=== PATIENT | female | born 1995 | race Caucasian/White ===

== ENCOUNTER 2022-11-01 11:20 | Outpatient (OUT) | payer OTHER, SELFPAY ==
[2022-11-01 12:41] LABS: Thyroid Stimulating Hormone 1.486 uIU/mL (0.358-3.740)
== END 2022-11-01 11:21 ==
LOC: LAB 11:25
PROVIDERS: PCP Internal Medicine; Visit Provider Physician Assistant
DX: Z39.2 Encounter for routine postpartum follow-up (principal)
CPT/HCPCS: 36415; 84443

== ENCOUNTER 2022-11-08 08:03 | Emergency (ER) | payer OTHER, SELFPAY ==
[2022-11-08 08:09] VITALS: BP 143/79; PULSE 80; RESP 18; TEMP 36.9; O2SAT 99; BMI 30.1
--- NOTE | 2022-11-08 08:40 | ED_ITS ---
HPI - General Adult General Chief complaint: Vaginal Bleeding Stated complaint: POST COMPLICATIONS CHILD Time Seen by Provider: 11/08/22 08:40 Source: patient Source information: patient Mode of arrival: walk-in Limitations: no limitations History of Present Illness HPI narrative: Patient presents to emergency department complaining of vaginal bleeding. Patient states she delivered prematurely at 29 weeks on September 22. She states since then she has been bleeding. She saw Dr. Valenzuela and was started on a control pill which has been changed but she has not started until she is done with her current control pills patient states she continues to bleed and is now passing clots golf ice. She denies any dizziness, lightheadedness, palpitations. She denies any foul vaginal discharge. She denies any flank pain, hematuria, dysuria. She denies a trauma. She denies any abdominal pain. She denies any fever, chills, cough, chest pain, shortness of breath. The patient is not soaking through 1 pad per hour. Related Data Allergies Allergy/AdvReac Type Severity Reaction Status Date / Time azithromycin Allergy Mild Uncoded 11/08/22 08:14 lamictil Allergy Mild Uncoded 11/08/22 08:14 Review of Systems ROS Status of ROS 10 or more systems reviewed and unremarkable except as noted in history and below [facility] Social History Smoking status: Never smoker Exam Narrative Exam Narrative: Nurses notes and vital signs reviewed and patient is not hypoxic. General: Nontoxic, Well-appearing and in no apparent distress. Skin: Warm, dry, no pallor noted. No Rash Head: Normocephalic, atraumatic. Neck: Supple, non-tender. Eye: Pupils are equal, round and EOMI. No scleral icterus. Ears, Nose, Mouth, and Throat: TM clear, no posterior oropharynx erythema or nasal mucosal hypertrophy, uvula is mid-line Oral mucosa is moist Cardiovascular: Regular Rate and Rhythm without murmur, gallop or rub. Respiratory: No accessory muscle use or respiratory distress. Lungs are clear to auscultation, no wheezing, rales or rhonchi Chest Wall: no tenderness Back: No midline thoracic or lumbar vertebral tenderness. No CVA tenderness Musculoskeletal: normal ROM, no calf or popliteal tenderness, no lower extremity edema/swelling GI: Abdomen is soft, non-distended. Normal bowel sounds. No masses appreciated. No tenderness to palpation. No rebound, guarding, or rigidity noted. Neurological: A&O x4. No cranial nerve dysfunction observed. No truncal ataxia. Moves all extremities. Sensation intact. Psychiatric: Cooperative and interactive. Normal mood and affect. Constitutional Vital Signs - 24 hr 11/08/22 08:09 11/08/22 10:58 Temperature 98.5 F Pulse Rate 77 Pulse Rate [Monitor] 80 Respiratory Rate 18 16 Blood Pressure 110/75 Blood Pressure [Right Arm] 143/79 H Pulse Oximetry 99 100 Oxygen Delivery Method Room Air Course Vital Signs Vital signs: Vital Signs Temperature 98.5 F 11/08/22 08:09 Pulse Rate 80 11/08/22 08:09 Respiratory Rate 18 11/08/22 08:09 Blood Pressure 143/79 H 11/08/22 08:09 Pulse Oximetry 99 11/08/22 08:09 Oxygen Delivery Method Room Air 11/08/22 08:09 Temperature 98.5 F 11/08/22 08:09 Pulse Rate 77 11/08/22 10:58 Respiratory Rate 16 11/08/22 10:58 Blood Pressure 110/75 11/08/22 10:58 Pulse Oximetry 100 11/08/22 10:58 Oxygen Delivery Method Room Air 11/08/22 08:09 Medical Decision Making MDM Narrative Medical decision making narrative: Studies were done and are unremarkable. Patient's hemoglobin is 13. A pelvic ultrasound was done which is also unremarkable. This results were discussed with patient and the mother. The patient was discussed with Dr. Valenzuela's nurse practitioner in uremia advised the patient follow up with him as an outpatient. I'll today and schedule an appointment. At this time the patient is without objective evidence of an acute process requiring hospitalization or inpatient management. The patient has remained hemodynamically stable. No additional indication for emergent studies at this time. I answered all questions. Discussed discharge instructions including standard anticipatory guidance and what should prompt a return to the emergency department, including if they get worse are not getting better or develops any new or concerning symptoms. I've given them specific time frame in which to follow-up, and who to follow-up with. The patient demonstrates understanding. Patient is nontoxic and stable for discharge with outpatient follow-up. This note was created with the assistance of a speech recognition program. Although the intention is to generate documents that actually reflects the content of the visit, no guarantees can be provided that every mistake has been identified and corrected by editing. Lab Data Lab results reviewed: Yes I reviewed the patient's lab results Labs: Lab Results 11/08/22 11/08/22 Range/Units 09:05 10:10 WBC 5.5 (4.0-11.0) 10^3/uL RBC 4.70 (4.20-5.40) 10^6/uL Hgb 13.9 (12.0-16.0) g/dL Hct 41.8 (36.0-48.0) % MCV 88.9 (81.0-99.0) fL MCH 29.6 (26.7-34.0) pg MCHC 33.3 (29.9-35.2) g/dL RDW 12.5 (11.0-15.0) % Plt Count 302 (150-450) 10^3/uL MPV 10.3 (9.5-13.5) fL Neut % (Auto) 55.5 (43.0-75.0) % Lymph % (Auto) 36.5 (20.5-60.0) % [place] % (Auto) 6.0 (1.7-12.0) % Eos % (Auto) 0.9 (0.9-7.0) % Baso % (Auto) 0.9 (0.2-2.0) % Neut # (Auto) 3.1 (1.4-6.5) 10^3/uL Lymph # (Auto) 2.0 (1.2-3.8) 10^3/uL [place] # (Auto) 0.3 (0.3-0.8) 10^3/uL Eos # (Auto) 0.1 (0.0-0.7) 10^3/uL Baso # (Auto) 0.1 (0.0-0.1) 10^3/uL Abs Immat Gran (auto) 0.01 (0.00-0.03) 10^3/uL Imm/Tot Granulo (auto) 0.2 (0.0-0.5) % Sodium 139 (136-145) mmol/L Potassium 4.1 (3.5-5.1) mmol/L Chloride 105 (98-107) mmol/L Carbon Dioxide 26.3 (21.0-32.0) mmol/L Anion Gap 11.8 BUN 13.0 (7.0-18.0) mg/dL Creatinine 0.87 (0.55-1.02) mg/dL Est GFR ( Amer) >60 (>=60) Est GFR (Non-Af Amer) >60 (>=60) BUN/Creatinine Ratio 14.9 Glucose 105 (74-106) mg/dL Calcium 9.2 (8.5-10.1) mg/dL Total Bilirubin 0.3 (0.2-1.0) mg/dL AST 13 L (15-37) U/L ALT 18 (14-59) U/L Alkaline Phosphatase 82 (46-116) U/L Total Protein 7.8 (6.4-8.2) g/dL Albumin 4.0 (3.4-5.0) g/dL Globulin 3.8 g/dL Albumin/Globulin Ratio 1.1 Urine Color Lt. yellow (YELLOW) Urine Clarity Clear (CLEAR) Urine pH 7.0 (5.0-9.0) Ur Specific [place] 1.010 (1.005-1.025) Urine Protein Negative (NEG/TRACE) mg/dL Urine Glucose (UA) Negative (NEGATIVE) mg/dL Urine Ketones Negative (NEGATIVE) mg/dL Urine Occult Blood Large A (NEGATIVE) Urine Nitrite Negative (NEGATIVE) Urine Bilirubin Negative (NEGATIVE) Urine Urobilinogen 0.2 (0.2-1.0) EU/dL Ur Leukocyte Esterase Negative (NEGATIVE) Urine HCG, Qual Negative (NEGATIVE) Discharge Plan Discharge Chief Complaint: Vaginal Bleeding Clinical Impression: Menometrorrhagia Patient Disposition: Home, Self-Care Time of Disposition Decision: 11:28 Condition: Good Mode of Transportation: Private Vehicle Instructions: Menorrhagia (ED) Stand Alone Forms: Portal Instructions Referrals: MATTHEW LEMUS [Primary Care Provider] - 1 week
--- NOTE | 2022-11-08 09:08 | US_ITS ---
[address] [address] Patient Name: LULÚ CAICEDO MRN: [id number] date: 1995 Sex: F Assigned Patient Location: ED.MAIN Current Patient Location: ER Accession/Order Number: [id number] Exam Date: 11/08/2022 09:20 Report Date: 11/08/2022 10:35 At the request of: ERNESTINE BAUGH Procedure: US pelvis EXAMINATION: US pelvis HISTORY: vag bleeding, retained products COMPARISON: No relevant comparison available. TECHNIQUE: Transabdominal and/or transvaginal sonographic examination was performed as indicated by examination type. FINDINGS: UTERUS: Normal size and appearance. Uterus size: 8.2 x 4.6 x 6.6 cm ENDOMETRIUM: No foci of increased echogenicity, fluid collections, or mass. Endometrial thickness: 10 mm RIGHT OVARY: Normal size and appearance. Duplex Doppler demonstrates normal waveform and flow; resistive index 0.7. Ovary size: 2.1 x 1.6 x 1.5 cm LEFT OVARY: Contains a 2.4 cm complex cyst/dominant follicle. Duplex Doppler demonstrates normal waveform and flow; resistive index 0.6. Ovary size: 4.9 x 3.0 x 3.4 cm CUL-DE-SAC: Unremarkable. No significant free fluid. BLADDER: Unremarkable. OTHER: None. IMPRESSION: 1. No evidence of retained products of conception. Electronically authenticated by: KAROL SIDDIQUI Date: 11/08/2022 10:35
[2022-11-08] MEDS: 0.9 % SODIUM CHLORIDE 1,000 ML 999 ML IV (09:16)
[2022-11-08 09:20] LABS: Basophils Absolute Auto 0.1 10^3/uL (0.0-0.1); Basophils Percent Auto 0.9 % (0.2-2.0); Eosinophils Absolute Auto 0.1 10^3/uL (0.0-0.7); Eosinophils Percent Auto 0.9 % (0.9-7.0); Hematocrit 41.8 % (36.0-48.0); Hemoglobin 13.9 g/dL (12.0-16.0); Immature Granulocytes Abs Auto 0.01 10^3/uL (0.00-0.03); Immature Granulocytes Pct Auto 0.2 % (0.0-0.5); Lymphocytes Percent Auto 36.5 % (20.5-60.0); Mean Corpuscular HGB Conc 33.3 g/dL (29.9-35.2); Mean Corpuscular Hemoglobin 29.6 pg (26.7-34.0); Mean Corpuscular Volume 88.9 fL (81.0-99.0); Mean Platelet Volume 10.3 fL (9.5-13.5); Monocytes Absolute Auto 0.3 10^3/uL (0.3-0.8); Neutrophils Absolute Auto 3.1 10^3/uL (1.4-6.5); Neutrophils Percent Auto 55.5 % (43.0-75.0); Platelet Count 302 10^3/uL (150-450); Red Cell Distribution Width 12.5 % (11.0-15.0); White Blood Count 5.5 10^3/uL (4.0-11.0)
[2022-11-08 09:50] LABS: Alanine Aminotransferase 18 U/L (14-59); Albumin Globulin Ratio 1.1; Alkaline Phosphatase 82 U/L (46-116); Anion Gap 11.8; Aspartate Amino Transferase 13 U/L (15-37); BUN Creatinine Ratio 14.9; Bilirubin Total 0.3 mg/dL (0.2-1.0); Calcium 9.2 mg/dL (8.5-10.1); Carbon Dioxide 26.3 mmol/L (21.0-32.0); Chloride 105 mmol/L (98-107); Estimated GFR (African America >60 (>=60); Estimated GFR (Non-African Ame >60 (>=60); Globulin 3.8 g/dL; Glucose 105 mg/dL (74-106); Potassium 4.1 mmol/L (3.5-5.1); Sodium 139 mmol/L (136-145); Total Protein 7.8 g/dL (6.4-8.2)
[2022-11-08 10:37] LABS: Bilirubin Urine NEGATIVE (NEGATIVE); Blood Urine LARGE (NEGATIVE); Clarity Urine CLEAR (CLEAR); Color Urine LT. YELLOW (YELLOW); Glucose Urine UA NEGATIVE (NEGATIVE); Ketones Urine NEGATIVE (NEGATIVE); Leukocyte Esterase Urine NEGATIVE (NEGATIVE); Nitrite Urine NEGATIVE (NEGATIVE); Protein Urine NEGATIVE (NEG/TRACE); Urobilinogen Urine 0.2 EU/dL (0.2-1.0)
[2022-11-08 10:38] LABS: HCG Qualitative Urine* NEGATIVE (NEGATIVE)
[2022-11-08 10:58] VITALS: BP 110/75; PULSE 77; RESP 16; O2SAT 100
[2022-11-08 11:43] VITALS: BP 115/75; PULSE 68; RESP 16; O2SAT 99
== END 2022-11-08 11:45 | disposition home or self-care (01) ==
PROVIDERS: Emergency Provider Emergency Medicine; PCP Internal Medicine
DX: N92.1 Excessive and frequent menstruation with irregular cycle (principal)
CPT/HCPCS: 36415; 76856; 80053; 81003; 83605; 84703; 85025; 99284

== ENCOUNTER 2023-01-21 07:35 | Outpatient (OUT) | payer OTHER, SELFPAY ==
--- NOTE | 2023-01-21 07:35 | NM_ITS ---
The [address] [address] Patient Name: LULÚ CAICEDO MRN: [id number] date: 1995 Sex: F Assigned Patient Location: UT Current Patient Location: UT Accession/Order Number: [id number] Exam Date: 01/21/2023 07:35 Report Date: 01/21/2023 12:56 At the request of: MATTHEW LEMUS Procedure: UT gastric emptying study NUCLEAR MEDICINE GASTRIC EMPTYING SCAN HISTORY: Vomiting after meals. COMPARISON: None. TECHNIQUE: The patient ingested a meal of eggs labeled with 1.0 mCi of technetium-99 sulfur colloid and images were performed of the stomach over 4 hours. Gastric retention was calculated. FINDINGS: At one hour, there was 88% gastric retention. The normal range is 30% to 90%. At two hours, there was 83% gastric retention. The normal range 0% to 60%. At four hours, there was 10% gastric retention. The normal range 0% to 10%. UT/UT gastric emptying study IMPRESSION: Delayed gastric emptying. Electronically authenticated by: NADYA MUNGUIA Date: 01/21/2023 12:56
== END 2023-01-21 07:36 | disposition home or self-care (01) ==
LOC: NM 07:37
PROVIDERS: PCP Internal Medicine; Visit Provider Internal Medicine
DX: K30 Functional dyspepsia (principal)
CPT/HCPCS: 78264; A9541

== ENCOUNTER 2023-02-23 09:15 | Outpatient (OUT) | payer OTHER, SELFPAY ==
[2023-02-23 09:46] LABS: Basophils Absolute Auto 0.1 10^3/uL (0.0-0.1); Basophils Percent Auto 0.8 % (0.2-2.0); Eosinophils Absolute Auto 0.1 10^3/uL (0.0-0.7); Eosinophils Percent Auto 0.6 % (0.9-7.0); Hematocrit 40.6 % (36.0-48.0); Hemoglobin 13.6 g/dL (12.0-16.0); Immature Granulocytes Abs Auto 0.03 10^3/uL (0.00-0.03); Immature Granulocytes Pct Auto 0.4 % (0.0-0.5); Lymphocytes Absolute Auto 2.8 10^3/uL (1.2-3.8); Lymphocytes Percent Auto 35.3 % (20.5-60.0); Mean Corpuscular HGB Conc 33.5 g/dL (29.9-35.2); Mean Corpuscular Volume 89.6 fL (81.0-99.0); Mean Platelet Volume 10.1 fL (9.5-13.5); Monocytes Absolute Auto 0.5 10^3/uL (0.3-0.8); Monocytes Percent Auto 6.8 % (1.7-12.0); Neutrophils Absolute Auto 4.4 10^3/uL (1.4-6.5); Neutrophils Percent Auto 56.1 % (43.0-75.0); Platelet Count 364 10^3/uL (150-450); Red Blood Count 4.53 10^6/uL (4.20-5.40); Red Cell Distribution Width 12.2 % (11.0-15.0); White Blood Count 7.8 10^3/uL (4.0-11.0)
[2023-02-23 14:10] LABS: Estimated Average Glucose 103 mg/dL; Glycohemoglobin A1C 5.2 % (4.5-6.2)
[2023-02-23 15:31] LABS: HCG Quantitative <1 mIU/mL; Thyroid Stimulating Hormone 2.008 uIU/mL (0.358-3.740)
[2023-02-23 16:49] LABS: Free T4 1.11 ng/dL (0.76-1.46)
[2023-02-24 04:07] LABS: FSH 2.7 mIU/mL (.); Luteinizing Hormone(LH) 1.1 mIU/mL (.)
[2023-03-01 13:10] LABS: DHEA, Serum 216 ng/dL (31-701)
== END 2023-02-23 09:16 | disposition home or self-care (01) ==
LOC: LAB 09:16
PROVIDERS: PCP Internal Medicine; Visit Provider Obstetrics & Gynecology
DX: Z30.09 Encounter for other general counseling and advice on contraception (principal)
CPT/HCPCS: 36415; 82626; 82627; 83001; 83002; 83036; 84439; 84443; 84702; 85025

== ENCOUNTER 2023-02-26 19:15 | Emergency (ER) | payer OTHER, SELFPAY ==
[2023-02-26 19:17] VITALS: BP 118/70; PULSE 80; RESP 14; TEMP 36.7; O2SAT 98; BMI 27.0
--- NOTE | 2023-02-26 19:27 | ED.ABDPAIN1 ---
HPI - Abdominal Pain General Chief Complaint: Abdominal Pain Stated Complaint: Abdominal Pain Time Seen by Provider: 02/26/23 19:18 History of Present Illness HPI narrative: 27-year-old female presents for abdominal issue. She is not complaining of pain and she hasn't had fever or trauma. She has a discomfort and feels bloated. She's not overdue for her period. She's been having three bowel movements a day but no diarrhea and has not been constipated or vomiting but she's been a bit nauseous. No fever or chest pain. Related Data Allergies Allergy/AdvReac Type Severity Reaction Status Date / Time lurasidone [From Latuda] Allergy Verified 02/26/23 19:19 azithromycin Allergy Mild Uncoded 02/26/23 19:19 lamictil Allergy Mild Uncoded 02/26/23 19:19 Review of Systems ROS Narrative A ten point review of systems is negative except as noted above. PFSH PFSH Social History Smoking status: Never smoker Exam Narrative Exam Narrative: Nurses note and vital signs reviewed and patient is not hypoxic. General: The patient appears well and in no apparent distress. Patient is resting comfortably on cart. Skin: Warm, dry, no pallor noted. There is no rash noted. Head: Normocephalic, atraumatic Eye: Normal conjunctiva, no drainage Ears, Nose, Mouth, and Throat: oral mucosa is moist. Nares patent. Cardiovascular: Regular Rate and Rhythm Respiratory: Patient is in no distress, no accessory muscle use, lungs are clear to auscultation, no wheezing, rales or rhonchi Back: non-tender GI: Normal bowel sounds, no tenderness to palpation, no masses appreciated. No rebound, guarding, or rigidity noted. Musculoskeletal: The patient has no evidence of calf tenderness, no pitting edema, symmetrical pulses noted bilaterally Neurological: A&O, normal speech Psychiatric: Cooperative Constitutional Vital Signs, click to edit/add: Last Vital Signs Temp 98.3 F 02/26/23 20:44 Pulse 77 02/26/23 20:44 Resp 16 02/26/23 20:44 BP 100/54 02/26/23 20:44 Pulse Ox 100 02/26/23 20:44 O2 Del Method Room Air 02/26/23 20:44 Course Vital Signs Vital signs: Vital Signs Temperature 98.1 F 02/26/23 19:17 Pulse Rate 80 02/26/23 19:17 Respiratory Rate 14 02/26/23 19:17 Blood Pressure 118/70 02/26/23 19:17 Pulse Oximetry 98 02/26/23 19:17 Temperature 98.3 F 02/26/23 20:44 Pulse Rate 77 02/26/23 20:44 Respiratory Rate 16 02/26/23 20:44 Blood Pressure 100/54 02/26/23 20:44 Pulse Oximetry 100 02/26/23 20:44 Oxygen Delivery Method Room Air 02/26/23 20:44 MDM - Abdominal Pain MDM Narrative Medical decision making narrative: the patient's workup is negative except for constipation and she is discharged home and was recommended MiraLAX. Treatment diagnosis and follow-up were discussed with the patient. Differential Diagnosis Differential diagnosis: Likely abdominal pain, constipation, diverticulitis, endometriosis, gastroenteritis, pancreatitis and small bowel obstruction Lab Data Labs: Lab Results 02/26/23 02/26/23 Range/Units 19:20 19:25 WBC 10.0 (4.0-11.0) 10^3/uL RBC 4.42 (4.20-5.40) 10^6/uL Hgb 13.3 (12.0-16.0) g/dL Hct 39.2 (36.0-48.0) % MCV 88.7 (81.0-99.0) fL MCH 30.1 (26.7-34.0) pg MCHC 33.9 (29.9-35.2) g/dL RDW 12.0 (11.0-15.0) % Plt Count 339 (150-450) 10^3/uL MPV 10.6 (9.5-13.5) fL Neut % (Auto) 54.5 (43.0-75.0) % Lymph % (Auto) 38.4 (20.5-60.0) % [place] % (Auto) 5.4 (1.7-12.0) % Eos % (Auto) 0.7 L (0.9-7.0) % Baso % (Auto) 0.7 (0.2-2.0) % Neut # (Auto) 5.4 (1.4-6.5) 10^3/uL Lymph # (Auto) 3.8 (1.2-3.8) 10^3/uL [place] # (Auto) 0.5 (0.3-0.8) 10^3/uL Eos # (Auto) 0.1 (0.0-0.7) 10^3/uL Baso # (Auto) 0.1 (0.0-0.1) 10^3/uL Abs Immat Gran (auto) 0.03 (0.00-0.03) 10^3/uL Imm/Tot Granulo (auto) 0.3 (0.0-0.5) % Sodium 141 (136-145) mmol/L Potassium 3.7 (3.5-5.1) mmol/L Chloride 104 (98-107) mmol/L Carbon Dioxide 27.2 (21.0-32.0) mmol/L Anion Gap 13.5 BUN 7.0 (7.0-18.0) mg/dL Creatinine 0.94 (0.55-1.02) mg/dL Est GFR ( Amer) >60 (>=60) Est GFR (Non-Af Amer) >60 (>=60) BUN/Creatinine Ratio 7.4 Glucose 90 (74-106) mg/dL Calcium 8.9 (8.5-10.1) mg/dL Total Bilirubin 0.2 (0.2-1.0) mg/dL Direct Bilirubin 0.1 (0.0-0.2) mg/dL AST 13 L (15-37) U/L ALT 28 (14-59) U/L Alkaline Phosphatase 64 (46-116) U/L Total Protein 8.0 (6.4-8.2) g/dL Albumin 3.9 (3.4-5.0) g/dL Globulin 4.1 g/dL Albumin/Globulin Ratio 1.0 Amylase 57 (25-115) U/L Lipase 260.0 (73.0-393.0) U/L Serum HCG, Qual Negative (NEGATIVE) Urine Color Yellow (YELLOW) Urine Clarity Clear (CLEAR) Urine pH 7.0 (5.0-9.0) Ur Specific [place] 1.020 (1.005-1.025) Urine Protein Negative (NEG/TRACE) mg/dL Urine Glucose (UA) Negative (NEGATIVE) mg/dL Urine Ketones Negative (NEGATIVE) mg/dL Urine Occult Blood Negative (NEGATIVE) Urine Nitrite Negative (NEGATIVE) Urine Bilirubin Negative (NEGATIVE) Urine Urobilinogen 0.2 (0.2-1.0) EU/dL Ur Leukocyte Esterase Negative (NEGATIVE) Urine RBC 0-2 (0-2) #/HPF Urine WBC 0-2 A (NONE SEEN) #/HPF Ur Squamous Epith Cells Few A (NONE/RARE) #/LPF Urine Crystals None seen (None Seen) #/HPF Urine Bacteria None seen (NONE SEEN) #/HPF Urine Casts None seen (NONE SEEN) #/LPF Urine Mucus Small A (NONE SEEN) Imaging Data Abdominal x-ray: Radiologist's impression: constipation Discharge Plan Discharge Chief Complaint: Abdominal Pain Clinical Impression: Constipation Patient Disposition: Home, Self-Care Time of Disposition Decision: 22:01 Condition: Good Mode of Transportation: Private Vehicle Instructions: Constipation (ED) Additional Instructions: [id number] MiraLAX for constipation Stand Alone Forms: Portal Instructions Referrals: MATTHEW LEMUS [Primary Care Provider] - 1 week
[2023-02-26 19:45] LABS: Bilirubin Urine NEGATIVE (NEGATIVE); Blood Urine NEGATIVE (NEGATIVE); Clarity Urine CLEAR (CLEAR); Color Urine YELLOW (YELLOW); Glucose Urine UA NEGATIVE (NEGATIVE); Ketones Urine NEGATIVE (NEGATIVE); Leukocyte Esterase Urine NEGATIVE (NEGATIVE); Nitrite Urine NEGATIVE (NEGATIVE); Protein Urine NEGATIVE (NEG/TRACE); Urobilinogen Urine 0.2 EU/dL (0.2-1.0)
[2023-02-26 19:53] LABS: Basophils Absolute Auto 0.1 10^3/uL (0.0-0.1); Basophils Percent Auto 0.7 % (0.2-2.0); Eosinophils Absolute Auto 0.1 10^3/uL (0.0-0.7); Eosinophils Percent Auto 0.7 % (0.9-7.0); Hematocrit 39.2 % (36.0-48.0); Hemoglobin 13.3 g/dL (12.0-16.0); Immature Granulocytes Abs Auto 0.03 10^3/uL (0.00-0.03); Immature Granulocytes Pct Auto 0.3 % (0.0-0.5); Lymphocytes Absolute Auto 3.8 10^3/uL (1.2-3.8); Lymphocytes Percent Auto 38.4 % (20.5-60.0); Mean Corpuscular HGB Conc 33.9 g/dL (29.9-35.2); Mean Corpuscular Hemoglobin 30.1 pg (26.7-34.0); Mean Corpuscular Volume 88.7 fL (81.0-99.0); Mean Platelet Volume 10.6 fL (9.5-13.5); Monocytes Absolute Auto 0.5 10^3/uL (0.3-0.8); Monocytes Percent Auto 5.4 % (1.7-12.0); Neutrophils Absolute Auto 5.4 10^3/uL (1.4-6.5); Neutrophils Percent Auto 54.5 % (43.0-75.0); Platelet Count 339 10^3/uL (150-450); Red Blood Count 4.42 10^6/uL (4.20-5.40)
[2023-02-26 20:01] LABS: Alanine Aminotransferase 28 U/L (14-59); Albumin Level 3.9 g/dL (3.4-5.0); Alkaline Phosphatase 64 U/L (46-116); Amylase 57 U/L (25-115); Anion Gap 13.5; Aspartate Amino Transferase 13 U/L (15-37); BUN Creatinine Ratio 7.4; Bilirubin Direct 0.1 mg/dL (0.0-0.2); Bilirubin Total 0.2 mg/dL (0.2-1.0); Calcium 8.9 mg/dL (8.5-10.1); Carbon Dioxide 27.2 mmol/L (21.0-32.0); Chloride 104 mmol/L (98-107); Estimated GFR (African America >60 (>=60); Estimated GFR (Non-African Ame >60 (>=60); Globulin 4.1 g/dL; Glucose 90 mg/dL (74-106); Potassium 3.7 mmol/L (3.5-5.1); Sodium 141 mmol/L (136-145)
[2023-02-26 20:01] LABS: Bacteria Urine NONE SEEN #/HPF (NONE SEEN); Cast Seen? NONE SEEN #/LPF (NONE SEEN); Crystals Seen? None Seen #/HPF (None Seen); Mucus Urine SMALL (NONE SEEN); RBC Urine 0-2 #/HPF (0-2); Squamous Epithelial Cell Urine FEW #/LPF (NONE/RARE); WBC Urine 0-2 #/HPF (NONE SEEN)
[2023-02-26 20:20] LABS: HCG Qualitative NEGATIVE (NEGATIVE)
--- NOTE | 2023-02-26 20:22 | XR_ITS ---
The [address] [address] Patient Name: LULÚ CAICEDO MRN: [id number] date: 1995 Sex: F Assigned Patient Location: ER Current Patient Location: ER Accession/Order Number: [id number] Exam Date: 02/26/2023 20:35 Report Date: 02/26/2023 21:22 At the request of: LUIS HODGES Procedure: XR abdomen 1V EXAMINATION:XR abdomen 1V HISTORY:pain COMPARISON:None TECHNIQUE:Frontal images of the abdomen are submitted. FINDINGS: No abnormally dilated loops of bowel are identified. There is scattered bowel gas and feces identified throughout the colon to the level the rectum. There is a large stool burden. No suspicious urologic opacifications are appreciated. XR/XR abdomen 1V IMPRESSION: Large stool burden. Electronically authenticated by: ISIDRO AVILA Date: 02/26/2023 21:22
[2023-02-26 20:44] VITALS: BP 100/54; PULSE 77; RESP 16; TEMP 36.8; O2SAT 100
== END 2023-02-26 22:11 | disposition home or self-care (01) ==
PROVIDERS: Emergency Provider Emergency Medicine; PCP Internal Medicine
DX: K59.00 Constipation, unspecified (principal)
CPT/HCPCS: 36415; 74018; 80048; 80076; 81001; 82150; 83690; 84703; 85025; 99284

== ENCOUNTER 2023-02-27 12:08 | Emergency (ER) | payer OTHER, SELFPAY ==
[2023-02-27 12:19] VITALS: BP 127/90; PULSE 98; RESP 20; TEMP 36.6; O2SAT 99; BMI 28.1
--- NOTE | 2023-02-27 12:44 | CT_ITS ---
The [address] [address] Patient Name: LULÚ CAICEDO MRN: [id number] date: 1995 Sex: F Assigned Patient Location: ER Current Patient Location: ER Accession/Order Number: [id number] Exam Date: 02/27/2023 13:25 Report Date: 02/27/2023 14:32 At the request of: SUZETTE CARR Procedure: CT abdomen pelvis wo con CT ABDOMEN AND PELVIS WITHOUT CONTRAST HISTORY: Abdominal pain. COMPARISON: CT 05/26/2022. METHOD: Dose reduction techniques were achieved by using automated exposure control and/or adjustment of mA and/or kV according to patient size and/or use of iterative reconstruction technique. FINDINGS: The lung bases are clear. The evaluation of solid organs is limited with no IV contrast. The evaluation for lymphadenopathy is very limited with no IV contrast. There is no intrahepatic biliary ductal dilatation. The spleen is normal in size. The adrenal glands are normal appearing. There are no renal stones or hydronephrosis. There is no bowel wall thickening or obstruction. The appendix is normal appearing. There is no free fluid or free air. There are no acute bony abnormality. CT/CT abdomen pelvis wo con IMPRESSION: No acute abnormality abdomen or pelvis. Electronically authenticated by: NADYA MUNGUIA Date: 02/27/2023 14:32
[2023-02-27] MEDS: KETOROLAC TROMETHAMINE 30 MG/ML VIAL 15 MG IM (13:13)
--- NOTE | 2023-02-27 16:16 | ED.ABDPAIN1 ---
HPI - Abdominal Pain General Chief Complaint: Abdominal Pain Stated Complaint: ABDOMINAL PAIN Time Seen by Provider: 02/27/23 12:28 Source: patient Mode of arrival: walk-in Limitations: no limitations History of Present Illness HPI narrative: The patient is coming to us for the second time within 24 hours for abdominal pain after negative work-up yesterday she tried mag citrate this morning and it did not help and she is coming to us with a bandlike abdominal pain in the middle of the abdomen, some nausea and vomiting at home and no radiation of the pain no other complaints Related Data Previous Rx's Medication Instructions Recorded bisacodyl 5 mg tablet,delayed 5 mg PO DAILY 2 days #2 tabs 02/27/23 release (Dulcolax (bisacodyl)) diclofenac sodium 50 mg 50 mg PO Q12H PRN pain #7 tabs 02/27/23 tablet,delayed release Allergies Allergy/AdvReac Type Severity Reaction Status Date / Time azithromycin Allergy Mild Verified 02/27/23 07:16 lamotrigine [From Lamictal] Allergy Mild Verified 02/27/23 07:17 lurasidone [From Latuda] Allergy Verified 02/26/23 19:19 Review of Systems ROS Status of ROS 10 or more systems reviewed and unremarkable except as noted in history and below PFSH PFS Social History Smoking status: Never smoker Exam Narrative Exam Narrative: Nurses notes and vital signs reviewed and patient is not hypoxic. General: Well-appearing and in no apparent distress. Skin: Warm, dry, no pallor noted. No rash. Head: Normocephalic, atraumatic. Neck: Supple, non-tender. Eye: Pupils are equal, round and EOMI. No scleral icterus. Ears, Nose, Mouth, and Throat: TM are clear, no nasal mucosal hypertrophy. Oral mucosa is moist, no posterior oropharynx erythema, uvula is mid-line Cardiovascular: Regular Rate and Rhythm without murmur, gallop or rub. Respiratory: No accessory muscle use or respiratory distress. Lungs are clear to auscultation, no wheezing, rales or rhonchi Chest Wall: no tenderness Back: No midline thoracic or lumbar vertebral tenderness. No CVA tenderness Musculoskeletal: normal ROM, no calf or popliteal tenderness, no lower extremity edema/swelling GI: Abdomen is soft, non-distended. Normal bowel sounds. No masses appreciated. No tenderness to palpation. No rebound, guarding, or rigidity noted. Neurological: A&O x4. No cranial nerve dysfunction observed. No truncal ataxia. Moves all extremities. Sensation intact. Psychiatric: Cooperative and interactive. Normal mood and affect. Constitutional Vital Signs, click to edit/add: Last Vital Signs Temp 98 F 02/27/23 12:19 Pulse 98 H 02/27/23 12:19 Resp 20 02/27/23 12:19 BP 127/90 02/27/23 12:19 Pulse Ox 99 02/27/23 12:19 O2 Del Method Room Air 02/27/23 12:19 Course Vital Signs Vital signs: Vital Signs Temperature 98 F 02/27/23 12:19 Pulse Rate 98 H 02/27/23 12:19 Respiratory Rate 20 02/27/23 12:19 Blood Pressure 127/90 02/27/23 12:19 Pulse Oximetry 99 02/27/23 12:19 Oxygen Delivery Method Room Air 02/27/23 12:19 Temperature 98 F 02/27/23 12:19 Pulse Rate 98 H 02/27/23 12:19 Respiratory Rate 20 02/27/23 12:19 Blood Pressure 127/90 02/27/23 12:19 Pulse Oximetry 99 02/27/23 12:19 Oxygen Delivery Method Room Air 02/27/23 12:19 MDM - Abdominal Pain MDM Narrative Medical decision making narrative: Obtain the CAT scan because the patient procuring complain and severe pain she was treated in the ER with Toradol after which she was feeling better and then the CAT scan was obtained showing no acute significant pathology the patient was instructed about the importance of hydration and fiber intake She was discharged home with supportive care The patient is to follow up with primary care physician in next 2-3 days or to return to the emergency department should any of the signs or symptoms worsen or new symptoms develop. The patient agrees with the following Diagnosis and Treatment plan and the patient will be discharged home. Discharge Plan Discharge Chief Complaint: Abdominal Pain Clinical Impression: Abdominal pain, Constipation Patient Disposition: Home, Self-Care Time of Disposition Decision: 14:52 Condition: Good Prescriptions / Home Meds: New bisacodyl [Dulcolax (bisacodyl)] 5 mg tablet,delayed release (DR/EC) 5 mg PO DAILY 2 Days Qty: 2 0RF diclofenac sodium 50 mg tablet,delayed release (DR/EC) 50 mg PO Q12H PRN (Reason: pain) Qty: 7 0RF Instructions: Abdominal Pain (ED) Stand Alone Forms: Portal Instructions Referrals: MATTHEW LEMUS [Primary Care Provider] - 1 week Discharge Date/Time: 02/27/23 15:22
== END 2023-02-27 15:22 | disposition home or self-care (01) ==
PROVIDERS: Emergency Provider Emergency Medicine; PCP Internal Medicine
DX: R10.9 Unspecified abdominal pain (principal); K59.00 Constipation, unspecified
CPT/HCPCS: 74176; 96372; 99285

== ENCOUNTER 2023-04-06 12:22 | Outpatient (OUT) | payer OTHER, SELFPAY ==
[2023-04-06 13:23] LABS: Basophils Absolute Auto 0.1 10^3/uL (0.0-0.1); Basophils Percent Auto 0.8 % (0.2-2.0); Eosinophils Absolute Auto 0.1 10^3/uL (0.0-0.7); Eosinophils Percent Auto 0.9 % (0.9-7.0); Hematocrit 37.9 % (36.0-48.0); Hemoglobin 12.8 g/dL (12.0-16.0); Immature Granulocytes Abs Auto 0.02 10^3/uL (0.00-0.03); Immature Granulocytes Pct Auto 0.3 % (0.0-0.5); Mean Corpuscular HGB Conc 33.8 g/dL (29.9-35.2); Mean Platelet Volume 10.4 fL (9.5-13.5); Monocytes Absolute Auto 0.5 10^3/uL (0.3-0.8); Neutrophils Absolute Auto 4.2 10^3/uL (1.4-6.5); Platelet Count 277 10^3/uL (150-450); Red Blood Count 4.26 10^6/uL (4.20-5.40); Red Cell Distribution Width 11.8 % (11.0-15.0); White Blood Count 7.8 10^3/uL (4.0-11.0)
[2023-04-06 13:31] LABS: Anion Gap 13.2; BUN Creatinine Ratio 13.3; Calcium 8.6 mg/dL (8.5-10.1); Carbon Dioxide 26.6 mmol/L (21.0-32.0); Chloride 104 mmol/L (98-107); Estimated GFR (African America >60 (>=60); Estimated GFR (Non-African Ame >60 (>=60); Glucose 87 mg/dL (74-106); Potassium 3.8 mmol/L (3.5-5.1); Sodium 140 mmol/L (136-145)
--- OUTSIDE RECORDS SUMMARY | 2023-05-17 14:18 | XMS_ITS | CCD ---
Author Name Unknown Address [address] [place] [address] Organization [facility] Care Team Providers Care 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 Name Role Phone Lisseth Johnson Primary Care Provider [phone] TOÑO BLANC Admitting Unavailable TOÑO BLANC Attending Unavailable LISSETH JOHNSON Primary Care Unavailable TOÑO BLANC Referring Unavailable LISSETH JOHNSON Primary Care Unavailable Lisseth Johnson Primary Care Provider BRIANA RUBIO Referring Unavailable LISSETH JOHNSON Primary Care Unavailable MATTHEW LEMUS Primary Care Physician [phone] Matthew Lemus Primary Care Provider [phone] Unavailable Primary Care Physician Unavailab le Lisa Primary Care Physician Unavailab le Unavailable Primary Care Physician Unavailab Bridgette Bennett Primary Care Physician Julianava Bridgette Gardner Unavailable Unavailable Tae Natarajan Unavailable Bridgette Lewis Primary Care Physician Julianava ilBridgette Trimble Primary Care Physician Unava ilKaleigh Stewart Primary Care Physician DO Matthew Arango Primary Care Provider MD Tae Natarajan Attending Provider Kaleigh Guevara Primary Care Physician Bridgette Medina Primary Care Physician Unava ilMaricel Canela Primary Care Physician Unavailab Maricel Crespo Primary Care Physician Unavailab Bridgette Bennett Primary Care Physician Julianava ilBridgette Trimble Primary Care Physician Julianava ilBridgette Trimble Primary Care Physician Julianava ilBridgette Trimble MD Primary Care Provider DR MARIAH MATTHEW Primary Care Unavailable LETY ., DR PEÑA Admitting Unavailable LETY ., DR PEÑA Attending Unavailable LETY ., DR PEÑA Consulting Unavailable ZIEBER, DR KAROL Ghosh Consulting Unavailable YUHAS, DR CASTRO Primary Care Unavailable LETY ., DR PEÑA Admsrinath Unavailable LETY ., DR PEÑA Attending Unavailable LETY ., DR PEÑA Consulting Unavailable LETY ., DR PEÑA Attending Unavailable LETY ., DR PÑEA Consulting Unavailable LETY ., DR PEÑA Admitting Unavailable MISC, DR PADRON Primary Care Unavailable YUHAS, DR CASTRO Primary Care Unavailable LESLIE, DR TABBY Ghosh Consulting Unavailable LUPIS ., ERNESTINE Admitting Unavailable LUPIS ., ERNESTINE Attending Unavailable GRECHNY ., WM CORREA Consulting Unavailabl e LUPIS ., ERNESTINE Consulting Unavailable CINDY NOGUEIRA Consulting Unavailable NAIMA, CHUY Admitting Unavailable NAIMACHUY Attending Unavailable LETY ., DR PEÑA Consulting Unavailable MISC, DR PADRON Primary Care Unavailable CHUY MCNAMARA Consulting Unavailable KARASIK ., DR ANGELES Consulting Unavailabl e KARASIK ., DR ANGELES Attending Unavailabl e KARASIK ., DR ANGELES Admitting Unavailabl e MISC, DR PADRON Primary Care Unavailable LETY ., DR PEÑA Consulting Unavailable ZIEBER, DR KAROL Ghosh Consulting Unavailable YUHAS, DR CASTRO Primary Care Unavailable LETY ., DR PEÑA Attending Unavailable LETY ., DR PEÑA Admitting Unavailable YUHAS, DR CASTRO Primary Care Unavailable LETY ., DR PEÑA Admitting Unavailable LETY ., DR PEÑA Attending Unavailable LETY ., DR PEÑA Consulting Unavailable LETY ., DR PEÑA Attending Unavailable LETY ., DR PEÑA Consulting Unavailable LETY ., DR PEÑA Admitting Unavailable MISC, DR PADRON Primary Care Unavailable ZIEBER, DR KAROL Ghosh Consulting Unavailable YUHAS, DR CASTRO Primary Care Unavailable LETY ., DR PEÑA Attending Unavailable LETY ., DR PEÑA Admitting Unavailable LETY ., DR PEÑA Consulting Unavailable LETY ., DR PEÑA Admitting Unavailable LETY ., DR PEÑA Attending Unavailable LETY ., DR PEÑA Consulting Unavailable MISC, DR PADRON Primary Care Unavailable LETY ., DR PEÑA Admitting Unavailable LETY ., DR PEÑA Attending Unavailable LETY ., DR PEÑA Consulting Unavailable MISC, DR PADRON Primary Care Unavailable ZIEBER, DR KAROL Ghosh Consulting Unavailable YUHAS, DR CASTRO Primary Care Unavailable LETY ., DR PEÑA Admitting Unavailable LETY ., DR PEÑA Attending Unavailable LETY ., DR PEÑA Consulting Unavailable LETY ., DR PEÑA Admitting Unavailable MISC, DR PADRON Primary Care Unavailable LETY ., DR PEÑA Attending Unavailable YUHAS, DR CASTRO Primary Care Unavailable LUPIS ., ERNESTINE Admitting Unavailable LUPIS ., ERNESTINE Attending Unavailable LUPIS ., ERNESTINE Consulting Unavailable YUHARonald, DR CASTRO Primary Care Unavailable LETY ., DR PEÑA Admitting Unavailable LETY ., DR PEÑA Attending Unavailable LETY ., DR PEÑA Consulting Unavailable ZIEBER, DR KAROL Ghosh Consulting Unavailable YUHAS, DR CASTRO Primary Care Unavailable LETY ., DR PEÑA Attending Unavailable LETY ., DR PEÑA Consulting Unavailable LETY ., DR PEÑA Admitting Unavailable FABY ., AUDELIA Consulting Unavailable YUNAWAFS, DR CASTRO Primary Care Unavailable FABY ., AUDELIA Admitting Unavailable FABY . AUDELIA Attending Unavailable YUUZIEL, DR CASTRO Primary Care Unavailable PAY ., DR THURMAN Consulting Unavailable JEFERSON, DR CASTRO Attending Unavailable JEFERSON, DR CASTRO Admitting Unavailable SYDNEYCHNY ., WM CORREA Consulting Unavaillucas AVILA, ISIDRO Consulting Unavailable GOVIND JOHNSTON Consulting Unavailable Agustin Ramos Primary Care Provider DO Matthew Lemus Primary Care Provider MD Matthew Leslie Emergency Provider MD Karri Kamara Admit Provider MD Karri Kamara Attending Provider [phone] Sarah Anderson Unavailable CASEY DAVIDSON Referring Unavailable BRIDGETTE LEWIS Primary Care Unavailable BRIDGETTE LEWIS Primary Care Unavailable DEREJE VALERIO Admitting Unavailable DEREJE VALERIO Attending Unavailable VINOD CLARK Attending Unavailable BRIDGETTE LEWIS Primary Care Unavailable Asaad, Imad Unavailable DO Matthew Lemus Primary Care Provider MD Fany Ceballos Attending Provider Matthew Lemus Primary Care Unavailable Karri Kamara Attending Unavailable Karri Kamara Admitting Unavailable Fany Ceballos Admitting Unavailable Matthew Lemus Primary Care Unavailable Fnay Ceballos Attending Unavailable Matthew Lemus Primary Care Unavailable Casper Arteaga Attending Unavailab Casper Hernadnez Admitting Unavailab Rishi Lynch Attending Unavailable Rishi MARSHALL Attending Unavailable BRIDGETTE LEWIS Primary [facility] Unavailable Rishi MARSHALL Attending Unavailable BRIDGETTE LEWIS Primary [facility] Unavailable Allergies Allergy Classification Reported Allergen(s) Allergy Type Date of Onset Reaction(s) Facility (13 sources) bee venom Propensity to adverse reactions to drug 07-15-19 15 [place], [place] (13 sources) Erythromycin Drug Allergy 07-15-19 15 [place], [place] (20 sources) Azithromycin; Translations: [azithromycin] Drug Allergy 01-09-20 21 Unknown (qualifier value) [facility] (4 sources) Bee pollen; Translations: [bee pollen] Drug Allergy Edema (finding) [facility] (4 sources) Bee/Wasp/Ant venom; Translations: [Bee Stings] Drug allergy Unknown (qualifier value) [facility] (14 sources) lamoTRIgine; Translations: [Lamictal] Drug Allergy [facility] (7 sources) lamoTRIgine Drug Allergy 02-11-20 22 Sw[facility] (1 source) Azithromycin Drug Allergy [facility] (2 sources) bee venom Drug allergy (disorder) [facility] (1 source) lamoTRIgine Drug Allergy [facility] (2 sources) lurasidone Drug Allergy [facility] Other (1 source) Azithromycin Drug Allergy 02-03-20 23 [facility] (1 source) lamoTRIgine Drug Allergy 02-03-20 23 [facility] (1 source) Azithromycin; Translations: [Zithromax Z-Oscar] Drug Allergy [facility] Medications Current Medications Medication Drug Class(es) Dates Sig (Normalized) Sig (Original) acetaminophen 325 mg / oxyCODONE hydrochloride 5 mg oral tablet (1 source) Opioid Agonist take 1 tablet by mouth every six hours as needed for pain oxyCODONE-Acetami nophen 5-325 MG TAKE 1 TABLET BY MOUTH EVERY 6 HOURS NEEDED FOR PAIN Oral for 5 Days Active 200 actuat albuterol 0.09 mg/actuat dry powder inhaler (20 sources) beta2-Adrenergic Agonist Start: 10-17-2018 take 2 puff(s) by inhalation every six hours as needed albuterol sulfate (PROAIR RESPICLICK) 108 (90 Base) MCG/ACT aerosol powder inhalation Indications: Wheezing Inhale 2 puffs into the lungs every 6 hours as needed for Shortness of Breath 1 Inhaler 1 10/17/2018 Active take 2 puff(s) by in halation every six hours as needed albuterol sulfate HFA 90 mcg/actuation aerosol inhaler inhale 2 puffs (180 mcg) by inhalation route every 6 hours as needed Albuterol (Eqv-ProAir HFA) 90 mcg/inh inhalation aerosol (3 sources) Start: 09-03-2021 take 1 puff(s) by inhalation every six hours Albuterol (Eqv-ProAir HFA) 90 mcg/inh inhalation aerosol puff(s), Inhalation, q6hr, Refill(s) 0 Start Date: 09/03/21 Status: Ordered ALPRAZolam 0.25 mg oral tablet (20 sources) Benzodiazepine Start: 02-10-2022 take 1 tablet by mouth once daily Alprazolam (Xanax) 0.25 mg Tablet Active 0.25 MG PO Daily February 09, 2022 11:00pm Start: 02-10-2022 End: 05-17-2022 take 1 tablet by mouth twice daily Alprazolam (Xanax) 0.25 mg Tablet Active 0.25 MG PO Twice daily February 10, 2022 12:00am Start: 01-08-2021 End: 02-02-2023 take 0.25 mg by mouth twice daily Alprazolam Discontinued 0.25 MG PO Twice daily January 07, 2021 11:00pm February 02, 2023 8:36pm take 1 tablet by marion th once daily as needed for sleep ALPRAZolam (XANAX) 0.5 MG tablet Take 0.5 mg by mouth nightly as needed for Sleep. 0 Active amoxicillin 875 mg / clavulanate 125 mg oral tablet (1 source) Penicillin-class Antibacterial Start: 02-11-2023 take 1 tablet by mouth every twelve hours Amoxicillin-Pot Clavulanate 875-125 MG 1 tablet Orally every 12 hrs for 10 day(s) Jan, Active brexpiprazole 1 mg oral tablet (9 sources) Atypical Antipsychotic take 1 tablet by mouth once daily brexpiprazole (REXULTI) 1 MG TABS tablet Take 1 mg by mouth daily 0 Active busPIRone hydrochloride 10 mg oral tablet (20 sources) Start: 09-03-2021 take 10 mg by mouth twice daily Buspirone Active 10 MG PO Twice daily February 01, 2023 11:00pm Start: 01-08-2021 End: 02-02-2023 take 10 mg by mouth twice daily Buspirone Discontinued 10 MG PO Twice daily January 07, 2021 11:00pm February 02, 2023 10:17pm Start: 04-07-2018 busPIRone (BUS PAR) 15 MG tablet Take 20 mg by mouth daily 0 04/07/2018 Active Start: 04-07-2018 take 15 mg by mouth once daily Buspirone Active 15 MG PO Daily January 08, 2021 12:00am End: 05-17-2022 take 1 tablet by mouth every twelve hours busPIRone HCl 15 MG 1 tablet Orally Twice a day for 30 days Active calcium chloride 0.0014 meq/ml / potassium chloride 0.004 meq/ml / sodium chloride 0.103 meq/ml / sodium lactate 0.028 meq/ml injectable solution (1 source) Start: 10-05-2019 lactated ringers infusion cefdinir 300 mg oral capsule (2 sources) Cephalosporin Antibacterial Start: 02-02-2023 take 300 mg by mouth twice daily Cefdinir Active 300 MG PO Twice daily February 01, 2023 11:00pm cefuroxime 250 mg oral tablet (1 source) Cephalosporin Antibacterial take 1 tablet by mouth every twelve hours Cefuroxime Axetil 250 MG 1 tablet Orally every 12 hrs Active cephalexin 500 mg oral capsule (2 sources) Cephalosporin Antibacterial Start: 03-10-2020 End: 03-17-2020 take 1 capsule by mouth three times daily cephALEXin (KEFLEX) 500 MG capsule Take 1 capsule by mouth 3 times daily for 7 days 21 capsule 0 03/10/2020 03/17/2020 Active cholecalciferol 0.05 mg oral capsule (3 sources) Vitamin D Cholecalciferol (VITAMIN D) 50 MCG (2000 UT) CAPS capsule Take by mouth 0 Active codeine phosphate 2 mg/ml / guaiFENesin 20 mg/ml oral solution (1 source) Opioid Agonist Start: 03-16-2020 End: 03-19-2020 take 5-10 mL by mouth four times daily as needed for cough guaiFENesin-codeine (GUAIFENESIN AC) 100-10 MG/5ML syrup Indications: Viral URI with cough Take 5-10 mLs by mouth 4 times daily as needed for Cough for up to 3 days. 118 mL 0 03/16/2020 03/19/2020 Active docusate sodium 100 mg oral capsule (1 source) take 1 capsule by mouth twice daily docusate sodium (COLACE) 100 MG capsule Take 100 mg by mouth 2 times daily 0 Active Drospirenone-Ethinyl Estradiol (3 sources) Progestin, Estrogen Start: 02-02-2023 take 1 tablet by mouth once daily in the morning Drospirenone-Ethinyl Estradiol Active 1 TAB PO Every morning February 01, 2023 11:00pm Start: 02-02-2023 take 1 tablet by marion th once daily in the morning Drospirenone-Ethinyl Estradiol Active 1 TAB PO Every morning February 02, 2023 12:00am Drospirenone-Eth inyl Estradiol 3-0.03 MG Oral for 84 Days Active ECHINACEA HERB PO (2 sources) ECHINACEA HERB P O Take 760 mg by mouth 0 Active elagolix 200 mg oral tablet (3 sources) Start: 9 take 1 tablet by mouth twice daily Elagolix Sodium 200 MG TABS Indications: Uterus, adenomyosis Take 1 tablet by mouth 2 times daily 60 tablet 5 11/15/2018 Active ethinyl estradiol 0.02 mg / ferrous fumarate 75 mg / norethindrone 1 mg oral tablet (1 source) Estrogen Blisovi FE 06/18 1-20 MG-MCG Oral for 28 Days Active famotidine 20 mg oral tablet (20 sources) Histamine-2 Receptor Antagonist Start: take 1 tablet by mouth once daily at bedtime Famotidine (Pepcid) 20 mg Tablet Active 20 MG PO Daily at bedtime February 01, 2023 11:00pm Start: 04-06-2019 take 1 tablet by marion th twice daily famotidine (PEPCID) 20 MG tablet Take 1 tablet by mouth 2 times daily 180 tablet 1 04/06/2019 Active 2 ml fentaNYL 0.05 mg/ml injection (1 source) Opioid Agonist Start: 10-05-2019 fentaNYL (SUBLIMAZE) injection 25 mcg fluticasone propionate 0.05 mg/actuat metered dose nasal spray (20 sources) Corticosteroid Start: 02-11-2023 take 2 spray(s) nasal route once daily Fluticasone Propionate 50 MCG/ACT 2 sprays Nasally Once a day for 14 day(s) Jan, Active Start: 05-17-2022 take 2 puff(s) by in halation twice daily Flovent HFA 220 mcg/actuation aerosol inhaler 05/17/2022 inhale 2 puffs (440 mcg) by inhalation route 2 times per day Start: 01-08-2021 End: 02-10-2022 Fluticasone Propionate Disco ntinued 1 SPRAY INTRANASAL Daily January 07, 2021 11:00pm February 10, 2022 1:22pm End: 06-15-2022 take 4 puff(s) by inhalation twice daily Flovent HFA 110 mcg/actuation aerosol inhaler 06/15/2022 inhale 4 puffs (440 mcg) by inhalation route 2 times per day dosage change 1 ml HYDROmorphone hydrochloride 2 mg/ml cartridge (1 source) Opioid Agonist Start: 10-05-2019 HYDROmorphone (DILAUDID) injection 0.25 mg hydrOXYzine hydrochloride 25 mg oral tablet (20 sources) Antihistamine Start: 09-03-2021 take 1 mg by mouth four times daily hydrOXYzine hydrochloride 25 mg Tab mg tab(s), Oral, QID, Refills(s) 0 Start Date: 09/03/21 Status: Ordered hydrOXYzine (DANK RAX) 10 MG tablet Take 25 mg by mouth 3 times daily as needed for Itching 0 Active End: 01-29-2022 hydroxyzine HCl 25 mg tablet 01/29/2022 take 1 tablet (25 mg) by oral route once daily at bedtime. Take 1-2 tablets as needed. take 1 tablet by marion three times daily as needed hydrOXYzine (ATARAX) 10 MG tablet Take 10 mg by mouth 3 times daily as needed for Itching 0 Active 24 hr levomilnacipran 20 mg extended release oral capsule (4 sources) Serotonin and Norepinephrine Reuptake Inhibitor Start: 02-05-2023 take 1 capsule by mouth once daily Levomilnacipran (Fetzima) 20 mg Capsule,Extended Release 24 Hr Active 20 MG PO Daily 60 February 04, 2023 11:00pm methylPREDNISolone 4 mg oral tablet (1 source) Corticosteroid Start: 02-11-2023 Medrol 4 MG as directed Orally As Directed for 6 days Jan, Active naproxen sodium 275 mg oral tablet (3 sources) Nonsteroidal Anti-inflammatory Drug Start: 11-03-2018 take 1 tablet by mouth three times daily at mealtime naproxen sodium (ANAPROX) 275 MG tablet Indications: Acute pelvic pain, female Take 1 tablet by mouth 3 times daily (with meals) 60 tablet 3 11/03/2018 Active Norgestimate-Eth Estradiol (MONO-LINYAH PO) (6 sources) Norgestimate-Eth Estradiol (MONO-LINYAH PO) Take by mouth 0 Active omeprazole 20 mg delayed release oral capsule (4 sources) Proton Pump Inhibitor Start: 02-02-2023 take 20 mg by mouth once daily at bedtime Omeprazole Active 20 MG PO Daily at bedtime February 01, 2023 11:00pm pantoprazole 40 mg delayed release oral tablet (20 sources) Proton Pump Inhibitor Start: 09-03-2021 take 1 mg by mouth once daily Pantoprazole [address] Tab mg tab(s), Oral, Daily, Refills(s) 0 Start Date: 09/03/21 Status: Ordered Start: 11-28-2018 End: 02-02-2023 take 1 tablet by mouth once daily Pantoprazole (Protonix) 40 mg Tablet,Delayed Release (Dr/Ec) Discontinued 40 MG PO Daily January 07, 2021 11:00pm February 02, 2023 8:41pm Phentermine (6 sources) Sympathomimetic Amine Anorectic Start: 09-04-2021 take 1 mg by mouth once daily Adipex-P mg, Oral, Daily, Refills(s) 0 Start Date: 09/04/21 Status: Ordered take [address] [facility] once daily in the morning phentermine 37.5 MG capsule Take 37.5 mg by mouth every morning. 0 Active predniSONE 10 mg oral tablet (1 source) Start: 03-13-2020 End: 03-18-2020 take 1 tablet by mouth twice daily predniSONE (DELTASONE) 10 MG tablet Take 1 tablet by mouth 2 times daily for 5 days 10 tablet 0 03/13/2020 03/18/2020 Active solifenacin succinate 10 mg oral tablet (1 source) Cholinergic Muscarinic Antagonist Solifenacin Succinate 10 MG Oral for 30 Days Active tamsulosin hydrochloride 0.4 mg oral capsule (1 source) alpha-Adrenergic Jade Start: 04-28-2023 take 1 capsule by mouth once daily Flomax 0.4 mg Cap 0.4 mg = 1 cap(s), Oral, Daily, # 30 cap(s), Refills(s) 0, Pharmacy: [facility]/pharmacy #[id number], 165, cm, 12/17/21 8:42:00 EDT, Height/Length Dosing, 79, kg, 12/17/21 8:42:00 EDT, Weight Dosing Start Date: 04/28/23 Status: Ordered Vitamin D (3 sources) Start: 09-04-2021 Vitamin D International_Uni t, Oral, qWeek, Refills(s) 0 Start Date: 09/04/21 Status: Ordered vortioxetine 5 mg oral tablet (3 sources) Start: 09-03-2021 take 1 mg by mouth once daily Trintellix 5 mg oral tablet mg tab(s), Oral, Daily, Refills(s) 0 Start Date: 09/03/21 Status: Ordered ziprasidone 20 mg oral capsule (4 sources) Atypical Antipsychotic Start: 02-05-2023 take 20 mg by mouth once daily Ziprasidone Hcl Active 20 MG PO Daily after supper 30 February 04, 2023 11:00pm take 1 capsule by mouth at bedti me Geodon 40 MG 1 capsule with food Orally HS Active take 1 capsule by mouth every tw elve hours Geodon 20 MG 1 capsule with food Orally Twice a day Active Completed/Discontinued Medications Medication Drug Class(es) Dates Sig (Normalized) Sig (Original) acetaminophen 325 mg oral tablet (1 source) Start: 10-11-2021 End: 10-11-2021 acetaminophen (TYLENOL) tablet 650 mg Start: 10-11-2021 End: 10-11-2021 acetaminophen (TYLENOL) tabl et 650 mg acetaminophen 300 mg / butalbital 50 mg / caffeine 40 mg oral capsule (18 sources) Barbiturate, Central Nervous System Stimulant, Methylxanthine Start: 01-19-2022 End: 02-02-2023 take 1 capsule by mouth every four hours Uhxsiinikc-Tgzzkwafxutbp-Pafn (Fioricet) 50-300-40 mg Capsule Discontinued 1 CAP PO Q4H February 09, 2022 11:00pm February 02, 2023 8:41pm Butalbital-APAP- Caffeine 50-300-40 MG Oral for 3 Days Active amoxicillin 500 mg oral capsule (10 sources) Penicillin-class Antibacterial Start: 02-10-2022 End: 02-20-2022 take 1 capsule by mouth three times daily amoxicillin 500 mg capsule 02/10/2022 02/20/2022 take 1 capsule (500 mg) by oral route 3 times per day for 10 days ARIPiprazole 15 mg oral tablet (20 sources) Atypical Antipsychotic Start: 02-10-2022 End: 02-02-2023 take 1 tablet by mouth once daily Aripiprazole (Abilify) 15 mg Tablet Discontinued 15 MG PO Daily February 09, 2022 11:00pm February 02, 2023 8:41pm Start: 09-03-2021 take 1 mg by mouth once daily aripiprazole 5 mg Tab mg tab(s), Oral, Daily, Refills(s) 0 Start Date: 09/03/21 Status: Ordered take 3 tablets by mo uth once daily ARIPiprazole (ABILIFY) 5 MG tablet Take 15 mg by mouth daily 0 Active ascorbic acid 250 mg chewable tablet (17 sources) Vitamin C take 2 tablets by mo uth once daily Vitamin C 250 mg chewable tablet chew 2 tablets by oral route daily take 1 tablet by mouth once shamar y vitamin C (ASCORBIC ACID) 500 MG tablet Take 500 mg by mouth daily 0 Active bisoprolol fumarate 5 mg oral tablet (3 sources) beta-Adrenergic Jade Start: 01-08-2021 End: 02-02-2023 take 5 mg by mouth once daily Bisoprolol Fumarate Discontinued 5 MG PO Daily January 07, 2021 11:00pm February 02, 2023 8:41pm cefTRIAXone (ROCEPHIN) 1,000 mg in sodium chloride 0.9 % 50 mL IVPB (mini-bag) (1 source) Start: 06-30-2022 End: 06-30-2022 cefTRIAXone (ROCEPHIN) 1,000 mg in sodium chloride 0.9 % 50 mL IVPB (mini-bag) ciprofloxacin 500 mg oral tablet (3 sources) Quinolone Antimicrobial Start: 05-06-2023 take 1 tablet by mouth once daily Cipro 500 mg Tab 500 mg = 1 tab(s), Oral, Daily, Take 1 tablet the day before the procedure and 1 tablet after the procedure, # 2 tab(s), Refills(s) 0, Pharmacy: [facility]/pharmacy #[id number], 165, cm, 12/17/21 8:42:00 EDT, Height/Length Dosing, 79, kg, 12/17/21 8:42:00 EDT, Weight Dosing Start Date: 05/06/23 Status: Ordered Start: 03-06-2020 End: 03-11-2020 take 1 tablet by mouth twice daily ciprofloxacin (CIPRO) 500 MG tablet Take 1 tablet by mouth 2 times daily for 5 days 10 tablet 0 03/06/2020 03/11/2020 Active Start: 01-15-2019 End: 01-25-2019 take 1 tablet by mouth twice daily ciprofloxacin (CIPRO) 500 MG tablet Take 1 tablet by mouth 2 times daily for 10 days 20 tablet 0 01/15/2019 01/25/2019 Active 24 hr desvenlafaxine 100 mg extended release oral tablet (16 sources) Serotonin and Norepinephrine Reuptake Inhibitor Start: 01-08-2021 End: 02-02-2023 take 100 mg by mouth once daily Desvenlafaxine Discontinued 100 MG PO Daily January 07, 2021 11:00pm February 02, 2023 8:41pm take 1 tablet by mouth once shamar y desvenlafaxine succinate (PRISTIQ) 100 MG TB24 extended release tablet Take 100 mg by mouth daily 0 Active doxycycline hyclate 100 mg oral capsule (2 sources) Tetracycline-class Drug Start: 09-04-2021 doxycycline hyclate 100 mg Cap 100 mg = 1 cap(s), Oral, As Directed, Take 1 pill the day before procedure, then 1 pill after the procedure., # 2 cap(s), Refills(s) 0, Pharmacy: [id number], 165, cm, 09/04/21 9:50:00 EDT, Height/Length Dosing, 79.1, kg, 09/04/21 9:50:00 EDT,... Start Date: 09/04/21 Status: Ordered doxylamine succinate 25 mg oral tablet (8 sources) take 1 tablet by mouth once daily as needed Unisom (doxylamine) 25 mg tablet take 1 tablet by oral route daily as needed fluconazole 150 mg oral tablet (11 sources) Azole Antifungal Start: 04-28-2023 fluconazole 150 mg Tab 300 mg = 2 tab(s), Oral, Once, take 1 tab PO. may repeat dose in 72 hr if still symptomatic., # 2 tab(s), Refills(s) 0, Pharmacy: [facility]/pharmacy #[id number], 165, cm, 12/17/21 8:42:00 EDT, Height/Length Dosing, 79, kg, 12/17/21 8:42:00 EDT, Weight Dosing Start Date: 04/28/23 Status: Ordered Start: 02-16-2022 End: 05-17-2022 take 1 tablet by mouth once Diflucan 150 mg tablet 01/2905/17/2022 take 1 tablet (150 mg) by oral route once and may repeat after antibiotic treatment is finished if needed iopamidol (ISOVUE-370) 76 % injection 75 mL (1 source) Start: 10-11-2021 End: 10-11-2021 iopamidol (ISOVUE-370) 76 % injection 75 mL 1 ml ketorolac tromethamine 30 mg/ml cartridge (1 source) Nonsteroidal Anti-inflammatory Drug, Cyclooxygenase Inhibitor Start: 10-11-2021 End: 10-11-2021 ketorolac (TORADOL) injection 30 mg lamoTRIgine 25 mg oral tablet (1 source) Mood Stabilizer, Anti-epileptic Agent lamoTRIgine 25 MG Oral for 30 Days Not-Taking lurasidone hydrochloride 60 mg oral tablet (5 sources) Atypical Antipsychotic Start: 02-02-2023 End: 02-05-2023 take 60 mg by mouth once daily in the morning Lurasidone Discontinued 60 MG PO Every morning February 01, 2023 11:00pm February 05, 2023 11:04am Start: 01-08-2021 End: 01-12-2021 take 1 tablet by mouth at bedtime Lurasidone (Latuda) 80 mg Tablet Discontinued 80 MG PO Bedtime January 07, 2021 11:00pm January 12, 2021 9:30am modified 24 hr metFORMIN hydrochloride 500 mg extended release oral tablet (20 sources) Biguanide Start: 02-10-2022 End: 02-02-2023 take 500 mg by mouth twice daily Metformin Discontinued 500 MG PO Twice daily February 09, 2022 11:00pm February 02, 2023 8:41pm Start: 09-04-2021 take 1 mg by mouth once daily metformin 500 mg ER Tab mg tab(s), Oral, Daily, Refills(s) 0 Start Date: 09/04/21 Status: Ordered take 1 tablet by marion th twice daily at mealtime metFORMIN (GLUCOPHAGE) 500 MG tablet Take 500 mg by mouth 2 times daily (with meals) 0 Active End: 05-17-2022 take 1 tablet by mouth twice daily metformin ER 500 mg tablet,extended release 24 hr 05/17/2022 take 1 tablet (500 mg) by oral route twice daily metoclopramide 10 mg oral tablet (5 sources) Dopamine-2 Receptor Antagonist take 1 tablet by mouth three times daily as needed Reglan 10 mg tablet take 1 tablet (10 mg) by oral route TID as needed ondansetron 4 mg oral tablet (20 sources) Serotonin-3 Receptor Antagonist Start: 2 End: 3 take 1 tablet by mouth every six hours Ondansetron Hcl (Zofran) 4 mg Tablet Discontinued 4 MG PO Q6H February 09, 2022 11:00pm February 02, 2023 8:41pm Start: 01-19-2022 take 1 tablet by marion th four times daily as needed ondansetron oral tablet,disintegrating 4 mg 01/19/2022 dissolve 1 tablet by oral route 4 times a day as needed Start: 10-11-2021 End: 10-11-2021 ondansetron (ZOFRAN) injecti on 4 mg Start: 10-11-2021 End: 10-11-2021 ondansetron (ZOFRAN) injecti on 4 mg Start: 04-03-2021 take 1 tablet by marion th once daily as needed for nausea ondansetron (ZOFRAN) 4 MG tablet Take 1 tablet by mouth daily as needed for Nausea or Vomiting 30 tablet 2 04/03/2021 Active Start: 10-05-2019 End: 10-05-2019 ondansetron (ZOFRAN) injecti on 4 mg Start: 07-31-2019 take 1 tablet by marion th once daily as needed for nausea ondansetron (ZOFRAN) 4 MG tablet Take 1 tablet by mouth daily as needed for Nausea or Vomiting 30 tablet 2 07/31/2019 Active inject 4 mg intraven ously every six hours as needed for nausea ondansetron (ZOFRAN) 40 MG/20ML SOLN injection Infuse 4 mg intravenously every 6 hours as needed for Nausea or Vomiting 0 Active 24 hr paliperidone 6 mg extended release oral tablet (6 sources) Atypical Antipsychotic Start: 01-12-2021 End: 02-10-2022 take 6 mg by mouth at bedtime Paliperidone Discontinued 6 MG PO Bedtime January 11, 2021 11:00pm February 10, 2022 1:22pm take 1 tablet by marion th once daily in the morning paliperidone (INVEGA) 9 MG extended rele ase tablet Take 9 mg by mouth every morning 0 Active PEAK FLOW METER (8 sources) Start: 05-17-2022 PEAK FLOW METE R 05/17/2022 USE QAM AND PRN TO MONITOR ASTHMA pramipexole dihydrochloride 0.5 mg oral tablet (6 sources) Nonergot Dopamine Agonist Start: 01-08-2021 End: 02-10-2022 take 0.5 mg by mouth twice daily Pramipexole Discontinued 0.5 MG PO Twice daily January 07, 2021 11:00pm February 10, 2022 1:23pm take 1 tablet by marion th three times daily pramipexole (MIRAPEX) 0.5 MG tablet Take 0.5 mg by mouth 3 times daily 0 Active 28 mg iron-800 mcg tablet (8 sources) take 2 tablets by mouth once daily 28 mg iron-800 mcg tablet take 2 tablets by oral route daily promethazine hydrochloride 25 mg oral tablet (7 sources) Phenothiazine Start: 06-30-2022 End: 06-30-2022 promethazine (PHENERGAN) tablet 25 mg take 1 tablet by marion th every six hours as needed for nausea promethazine (PHENERGAN) 25 MG tablet Ta ke 25 mg by mouth every 6 hours as needed for Nausea 0 Active propranolol hydrochloride 10 mg oral tablet (11 sources) beta-Adrenergic Jade Start: 02-09-2022 End: 05-17-2022 take 1 tablet by mouth three times daily propranolol 10 mg tablet 02/09/2022 05/17/2022 take 1 tablet (10 mg) by oral route 3 times per day rosuvastatin calcium 5 mg oral tablet (11 sources) HMG-CoA Reductase Inhibitor Start: 02-09-2022 End: 05-17-2022 take 1 tablet by mouth once daily at bedtime rosuvastatin 5 mg tablet 02/09/2022 05/17/2022 take 1 tablet (5 mg) by oral route once daily at bedtime sincalide (KINEVAC) 0.02 mcg/kg in sodium chloride 0.9 % 50 mL infusion (1 source) Start: 10-12-2019 End: 10-12-2019 sincalide (KINEVAC) 0.02 mcg/kg in sodium chloride 0.9 % 50 mL infusion 50 ml sodium chloride 9 mg/ml injection (2 sources) Start: 06-30-2022 End: 06-30-2022 0.9 % sodium chloride bolus Start: 10-11-2021 End: 10-11-2021 0.9 % sodium chloride bolus technetium mebrofenin (CHOLETEC) injection 6 millicurie (1 source) Start: 10-12-2019 End: 10-12-2019 technetium mebrofenin (ROXY MARCIA) injection 6 millicurie topiramate 100 mg oral table t (20 sources) Start: 01-29-2022 End: 02-02-2023 Topiramate (Topamax) 100 mg Tablet Discontinued MG TABLET February 09, 2022 11:00pm February 02, 2023 8:41pm Start: 01-19-2022 End: 03-20-2022 take 1 tablet by mouth once daily at bedtime Topamax 50 mg tablet 01/19/2022 03/20/2022 take 1 tablet by oral route once a day (at bedtime) for 30 days Start: 02-11-2020 take 1 tablet by marion th once daily topiramate (TOPAMAX) 25 MG tablet Take 1 tablet by mouth daily 90 tablet 0 02/11/2020 Active Start: 06-23-2018 topiramate (TO PAMAX) 25 MG tablet TAKE 1 TABLET AT BEDTIME 90 tablet 4 06/23/2018 Active traZODone hydrochloride 150 mg oral tablet (20 sources) Serotonin Reuptake Inhibitor Start: 01-29-2022 End: 05-17-2022 take 1 tablet by mouth once daily at bedtime trazodone 150 mg tablet 01/29/2022 05/17/2022 take one tablet by oral route once daily at bedtime Start: 09-03-2021 take 1 mg by mouth twice daily traZODONE 100 mg Tab mg tab(s), Oral, BID, Refills(s) 0 Start Date: 09/03/21 Status: Ordered Start: 01-08-2021 End: 02-02-2023 take 150 mg by mouth at bedtime Trazodone Discontinued 150 MG PO Bedtime January 07, 2021 11:00pm February 02, 2023 8:41pm Start: 11-10-2016 take 2 tablets by mo uth once daily traZODone (DESYREL) 50 MG tablet Take 100 mg by mouth nightly 0 11/10/2016 Active Start: 11-10-2016 traZODone (KAMARI YREL) 50 MG tablet Take 25 mg by mouth nightly 0 11/10/2016 Active Start: 11-10-2016 take 1 tablet by marion th at bedtime traZODone (DESYREL) 50 MG tablet take 1 tablet by mouth at bedtime 0 11/10/2016 Active take 0.5 tablet by m outh once daily at bedtime trazodone 150 mg tablet take one-half tablet (75 mg) by oral route once daily at bedtime Problems Active Problems Problem Classification Problem Date Documented Da te Episodic/Chronic Abdominal pain (20 sources) Epigastric pain; Translations: [Abdominal pain] Onset: 09-13-2015 09-16-2015 Episodic Anxiety disorders (20 sources) Generalized anxiety disorder; Translations: [Anxiety] Onset: 10-09-2014 11-08-2014 Chronic Asthma (20 sources) Asthmatic bronchitis; Translations: [Asthma] Onset: 02-04-2015 02-04-2015 Chronic Conditions associated with dizziness or vertigo (4 sources) Dizziness and giddiness Onset: 06-17-2022 Episodic Diabetes mellitus without complication (4 sources) Other abnormal glucose; Translations: [OTHER ABNORMAL GLUCOSE] Onset: 08-30-2022 Episodic Disorders of lipid metabolism (20 sources) Hyperlipidemia; Translations: [Other and unspecified hyperlipidemia] Onset: 02-09-2022 Chronic Endometriosis (17 sources) Endometriosis (clinical); Translations: [Endometriosis, unspecified] 09-03-2021 Chronic Genitourinary symptoms and ill-defined conditions (4 sources) Urge incontinence; Translations: [Urge incontinence of urine] Onset: 09-04-2021 Chronic Genitourinary symptoms and ill-defined conditions (20 sources) Tenzin hematuria; Translations: [Urgent desire to urinate] Onset: 03-01-2019 Resolved: 01-25-2022 03-01-2019 Episodic Headache; including migraine (20 sources) Migraine; Translations: [Migraine with aura] Onset: 11-24-2016 11-24-2016 Chronic Hemorrhage during ; abruptio placenta; placenta previa (4 sources) Low lying placenta NOS or without hemorrhage, second trimester; Translations: [Low lying placenta NOS or without hemorrhage, unspecified trimester] Onset: 08-17-2022 Episodic Immunizations and screening for infectious disease (20 sources) Encounter for screening for respiratory tuberculosis; Translations: [Contact with and (suspected) exposure to infections with a predominantly sexual mode of transmission] Onset: 12-23-2021 Episodic Menstrual disorders (9 sources) Irregular menstruation, unspecified; Translations: [Amenorrhea, unspecified] Onset: 11-16-2021 Chronic Mood disorders (20 sources) Depressive disorder; Translations: [Bipolar disorder] Onset: 04-30-2015 04-30-2015 Chronic Mood disorders (1 source) Mood disorders; Translations: [Depression, unspecified] Onset: 02-02-2023 Nausea and vomiting (16 sources) Intractable nausea and vomiting; Translations: [Nausea] Onset: 06-17-2022 Episodic Other aftercare (1 source) Other manager long term care (current) drug therapy; Translations: [OTH GROUP HOME CURRENT DRUG THERAPY] Onset: 09-20-2022 Episodic Other complications of (1 source) Other mental disorders complicating , third trimester; Translations: [OTH MENTAL D/O COMP PREG THIRD TRI] Onset: 09-20-2022 Episodic Other complications of (4 sources) Other specified related conditions, second trimester; Translations: [OTH SPEC PREG RELATED COND 2ND TRI] Onset: 09-04-2022 Episodic Other disorders of stomach and duodenum (1 source) Delayed gastric emptying; Translations: [Functional dyspepsia] Episodic Other disorders of stomach and duodenum (2 sources) Functional dyspepsia; Translations: [Functional dyspepsia] Onset: 05-12-2023 Episodic Other endocrine disorders (14 sources) Polycystic ovarian syndrome Chronic Other female genital disorders (3 sources) Abnormal uterine and vaginal bleeding, unspecified; Translations: [ABNORMAL UTERINE VAGINAL BLEED UNS] Onset: 11-14-2021 Chronic Other female genital disorders (1 source) Other specified noninflammatory disorders of vagina; Translations: [OTH SPEC NONINFLAMMATORY D/O VAGINA] Onset: 07-07-2022 Episodic Other gastrointestinal disorders (1 source) Irritable bowel syndrome characterized by constipation; Translations: [Irritable bowel syndrome with constipation] Chronic Other gastrointestinal disorders (2 sources) Irritable bowel syndrome with constipation; Translations: [Irritable bowel syndrome with constipation] Onset: 05-12-2023 Chronic Other injuries and conditions due to external causes (2 sources) Foreign body in bladder; Translations: [Foreign body in bladder, initial encounter] Onset: 05-10-2023 Episodic Other nutritional; endocrine; and metabolic disorders (4 sources) Anorexia Onset: 06-17-2022 Episodic Other and delivery including normal (20 sources) Encounter for supervision of normal , unspecified, unspecified trimester; Translations: [Encounter for supervision of normal first , first trimester] Onset: 03-17-2022 Episodic Other upper respiratory disease (8 sources) Allergic disposition; Translations: [Allergic rhinitis due to other allergen] Onset: 05-17-2022 Chronic Other upper respiratory disease (20 sources) Other allergic rhinitis Onset: 12-19-2022 Chronic Other upper respiratory disease (5 sources) Allergic rhinitis; Translations: [Allergic rhinitis due to other allergen] Onset: 06-15-2022 Chronic Other upper respiratory infections (4 sources) Acute frontal sinusitis; Translations: [Viral upper respiratory tract infection] Episodic Personality disorders (14 sources) Borderline personality disorder Chronic Polyhydramnios and other problems of amniotic cavity (4 sources) premature rupture of membranes, unspecified as to length of time between rupture and onset of labor, third trimester; Translations: [PT PROM UNS TM BTW RUPT LABR 3 TRI] Onset: 09-16-2022 Episodic Residual codes; unclassified (3 sources) Hallucinations; Translations: [Hallucinations, unspecified] 01-08-2021 Episodic Residual codes; unclassified (1 source) 28 weeks gestation of ; Translations: [28 WEEKS GESTATION OF ] Onset: 09-20-2022 Episodic Residual codes; unclassified (1 source) 26 weeks gestation of ; Translations: [26 WEEKS GESTATION OF ] Onset: 09-08-2022 Episodic Residual codes; unclassified (1 source) 24 weeks gestation of ; Translations: [24 WEEKS GESTATION OF ] Onset: 08-21-2022 Episodic Residual codes; unclassified (1 source) 20 weeks gestation of ; Translations: [20 WEEKS GESTATION OF ] Onset: 07-24-2022 Episodic Schizophrenia and other psychotic disorders (3 sources) Schizophrenia 09-03-2021 Chronic Unclassified (1 source) CONTACT W/AND (SUSP) EXPOS COVID-19; Translations: [CONTACT W/AND (SUSP) EXPOS COVID-19] Onset: 05-28-2022 Urinary tract infections (4 sources) Cystitis; Translations: [Cystitis, unspecified without hematuria] Onset: 09-04-2021 Episodic Past or Other Problems Problem Classification Problem Date Documented Da te Episodic/Chronic Cardiac dysrhythmias (20 sources) Tachycardia; Translations: [Tachycardia, unspecified] Onset: 02-09-2022 Episodic Fluid and electrolyte disorders (7 sources) Dehydration; Translations: [DEHYDRATION] Onset: 06-18-2022 Episodic Other complications of (4 sources) Mild hyperemesis gravidarum; Translations: [MILD HYPEREMESIS GRAVIDARUM] Onset: 06-22-2022 Episodic Other complications of (1 source) Other specified related conditions, unspecified trimester; Translations: [OTH SPEC PREG RELATED COND UNS TRI] Onset: 06-22-2022 Episodic Other complications of (4 sources) Other specified related conditions, first trimester; Translations: [OTH SPEC PREG RELATED COND 1ST TRI] Onset: 05-26-2022 Episodic Other screening for suspected conditions (not mental disorders or infectious disease) (6 sources) Encounter for screening for malignant neoplasm of cervix; Translations: [Encounter for screening for diabetes mellitus] Onset: 07-06-2022 Episodic Ovarian cyst (1 source) Corpus luteum cyst of left ovary; Translations: [CORPUS LUTEUM CYST OF LEFT OVARY] Onset: 03-24-2022 Episodic Residual codes; unclassified (13 sources) Insomnia; Translations: [Insomnia, unspecified] Onset: 06-24-2015 06-24-2015 Episodic Residual codes; unclassified (1 source) Weeks of gestation of not specified; Translations: [WEEKS GESTATION NOT SPEC] Onset: 06-22-2022 Episodic Residual codes; unclassified (1 source) 12 weeks gestation of ; Translations: [12 WEEKS GESTATION OF ] Onset: 05-28-2022 Episodic Spondylosis; intervertebral disc disorders; other back problems (13 sources) Acute back pain with sciatica; Translations: [Lumbago with sciatica, unspecified side] Onset: 06-08-2016 06-08-2016 Episodic Suicide and intentional self-inflicted injury (5 sources) Suicidal thoughts; Translations: [Suicidal ideations] Onset: 02-02-2023 01-08-2021 Episodic Results Test Name Value Interpretation Reference Range Facil ity CT abdomen pelvis w conon CT abdomen pelvis w [facility] [place] [address] CT Scan Report Signed Patient: Lulú Gaitan MR#: [id number] 4 : 1995 Acct:[id number] Age/Sex: 28 / F ADM Date: 05/12/23 Loc: CT Room: Type: [facility] Attending Dr: Fany Ceballos MD Copies to: Fany Ceballos MD Ordering Provider: Fany Ceballos MD Date of Service: 05/12/23 CT/CT abdomen pelvis w con: Irritable bowel syndrome with constipation;Delayed gastric e CT ABDOMEN AND PELVIS WITH INTRAVENOUS CONTRAST: CLINICAL HISTORY: Nausea and vomiting. COMPARISON: None TECHNIQUE: Spiral images were obtained through the abdomen and pelvis following the administration of intravenous contrast. This CT exam was performed using one or more following dose reduction techniques: Automated exposure control, adjustment of the mA and/or kV according to patient size, or use of iterative reconstruction technique. FINDINGS: Lung Bases: [No acute findings.] Organs:Liver gallbladder spleen pancreas and adrenal glands all appear unremarkable. Right kidney appears unremarkable. Heterogeneous enhancement is seen involving the medial aspect of the left kidney with mild urothelial thickening. No hydronephrosis is noted.[ GI: Stomach is grossly unremarkable. Small bowel appears nondilated. No acute colonic abnormality.[ Pelvis:[Urinary bladder is grossly unremarkable. Uterus is grossly unremarkable. No adnexal mass.] Peritoneum/Retroperitoneum:No free air, free fluid or lymphadenopathy. Abd wall/Bones:Abdominal wall demonstrates no acute findings.[Osseous structures demonstrate mild degenerative change.[ CT/CT abdomen pelvis w con IMPRESSION: 1. Focal area of Heterogeneous enhancement involving the medial aspect of the left kidney with what appears to be urothelial thickening. Pyelonephritis cannot BE is suspected and correlation with urinalysis is recommended. Repeat CT after therapy is recommended to ensure resolution as underlying mass cannot BE excluded. FINDINGS OF THIS REPORT WERE GIVEN TO THE RADIOLOGY OFFICE STAFF FOR EXPEDITED RELAY OF RESULTS TO THE REFERRING CLINICIAN. Impression dictated by: Samy Pham Jr., D.O.05/12/2023 10:29 AM Dictation Location: [place] [address] Transcribed By: [facility] 05/12/23 1029 Dictated By: Samy Pham Jr, DO 05/12/23 1023 Signed By: 05/12/[address] [facility] Consent for Procedure/[facility] 05-11-2023 Consent for Procedure/Surgery [id number] [facility] Ambulatory Visit Summaryon 1 07-11-2022 Ambulatory Visit Summary LULÚ GAITAN Maury :1995 Visit Date:05/10/2023 Ambulatory Visit Instructions Your Diagnosis Gross hematuria Flank pain Foreign body in bladder Your Care Team Attending Physician - Rishi MARSHALL MD Primary Care Physician - MATTHEW LEMUS DO This Is Your Medications List tamsulosin (Flomax 0.4 mg Cap) Contact prescribing physician if questions or concerns albuterol (Albuterol (Eqv-ProAir HFA) 90 mcg/inh inhalation aerosol) aripiprazole (aripiprazole 5 mg Tab) busPIRone (busPIRone 10 mg Tab) ciprofloxacin (Cipro 500 mg Tab) ergocalciferol (Vitamin D) fluconazole (fluconazole 150 mg Tab) hydrOXYzine (hydrOXYzine hydrochloride 25 mg Tab) metformin (metformin 500 mg ER Tab) pantoprazole (Pantoprazole [address] Tab) phentermine (Adipex-P) trazodone (traZODONE 100 mg Tab) vortioxetine (Trintellix 5 mg oral tablet) Procedures Performed Stent removal (05/10/2023), Cystoscopy (09/29/2021), EGD (esophagogastroduodenoscopy) gastric outlet reduction, Endometrial ablation, Ovarian cystectomy. Discharge Vitals Heart Rate (Peripheral) 72 Blood Pressure 117/78 Height 165 cm Height 65 in Weight 79 kg Weight 173.8 lb BMI 29.02 What to do next Scheduled Follow-Up Appointments Tuesday 10:15 AM EDT With: Rishi MARSHALL MD Where: [facility] Patient Educationon 05-10-20 Patient Education Urology Hematuria, Adult Hematuria is blood in the urine. Blood may be visible in the urine, or it may be identified with a test. This condition can be caused by infections of the bladder, urethra, kidney, or prostate. Other possible causes include: ? Kidney stones. ? Cancer of the urinary tract. ? Too much calcium in the urine. ? Conditions that are passed from parent to child (inherited conditions). ? Exercise that requires a lot of energy. Infections can usually be treated with medicine, and a kidney stone usually will pass through your urine. If neither of these is the cause of your hematuria, more tests may be needed to identify the cause of your symptoms. It is very important to tell your health care provider about any blood in your urine, even if it is painless or the blood stops without treatment. Blood in the urine, when it happens and then stops and then happens again, can be a symptom of a very serious condition, including cancer. There is no pain in the initial stages of many urinary cancers. Follow these instructions at home: Medicines ? Take [id number]-hcwueme and prescription medicines only as told by your health care provider. ? If you were prescribed an antibiotic medicine, take it as told by your health care provider. Do not stop taking the antibiotic even if you start to feel better. Eating and drinking ? Drink enough fluid to keep your urine pale yellow. It is recommended that you drink 3?4 quarts (2.8?3.8 L) a day. If you have been diagnosed with an infection, drinking cranberry juice in addition to large amounts of water is recommended. ? Avoid caffeine, tea, and carbonated beverages. These tend to irritate the bladder. ? Avoid alcohol because it may irritate the prostate (in males). General instructions ? If you have been diagnosed with a kidney stone, follow your health care provider's instructions about straining your urine to catch the stone. ? Empty your bladder often. Avoid holding urine for long periods of time. ? If you are female: ? After a bowel movement, wipe from front to back and use each piece of toilet paper only once. ? Empty your bladder before and after sex. ? Pay attention to any changes in your symptoms. Tell your health care provider about any changes or any new symptoms. ? It is up to you to get the results of any tests. Ask your health care provider, or the department that is doing the test, when your results will be ready. ? Keep all follow-up visits. This is important. Contact a health care provider if: ? You develop back pain. ? You have a fever or chills. ? You have nausea or vomiting. ? Your symptoms do not improve after 3 days. ? Your symptoms get worse. Get help right away if: ? You develop severe vomiting and are unable to take medicine without vomiting. ? You develop severe pain in your back or abdomen even though you are taking medicine. ? You pass a large amount of blood in your urine. ? You pass blood clots in your urine. ? You feel very weak or like you might faint. ? You faint. Summary ? Hematuria is blood in the urine. It has many possible causes. ? It is very important that you tell your health care provider about any blood in your urine, even if it is painless or the blood stops without treatment. ? Take thcj-zib-ytrheze and prescription medicines only as told by your health care provider. ? Drink enough fluid to keep your urine pale yellow. This information is not intended to replace advice given to you by your health care provider. Make sure you discuss any questions you have with your health care provider. Document Revised: 01/14/2021 Document Reviewed: 01/14/2021 [employer] Patient Education ? 2022 [employer]. Jong [facility] Urology Office/Clinic Noteon 05-10-2023 Urology Office/Clinic Note Chief Complaint Pt is here for cysto/stent removal HPI Staff Cysto Lt stent removal ABX TAKEN. History of Present Illness Tests reviewed: none. I have reviewed the previous health record information and history for this patient from . I have reviewed and verified the staff HPI to be accurate for this encounter. There have been no associated fever, chills, flank pain, or blood in the urine. Denies any urinary infections since last encounter. Review of Systems PHQ Score Initial Depression Screen Score: 0 SCORE ROS - Provider Constitutional: denies weight loss, denies hot flashes. Eyes: denies eye problems. Gastrointestinal: denies nausea, denies vomiting. Cardiovascular: denies chest pain or angina. Integumentary: no dryness Musculoskeletal: denies musculoskeletal symptoms. ENMT: denies otolaryngeal symptoms. Respiratory: no shortness of breath. Heme/Lymph: denies easy bleeding tendency, denies easy bruising tendency. Psychiatric: no confusion, no anxiety. Genitourinary: See HPI. Physical Exam Vitals & Measurements HR: 72(Peripheral) BP: 117/78 HT: 65 in HT: 165 cm WT: 79 kg WT: 173.8 lb BMI: 29.02 General Appearance: alert , no acute distress, well nourished, well developed female. Genitourinary: bladder nonpalpable, no flank pain. Procedure Operative Information Anesthesia Type: Local Procedure: Local Cystoscopy with Stent Removal Complications: None Surgical risks, benefits, details of the procedure have been explained to the patient. Full informed consent has been obtained. Intraoperative Information Prepped: Patient is placed in supine/frogleg position. The patient was prepped with the Betadine solution. Anesthesia: 2% Xylocaine Jelly per urethra. Procedure: Cystoscopy and left stent removal. The flexible Cystoscope was passed in retrograde fashion into the bladder without difficulty. The bladder was viewed in entirety and found to be without tumors or stones. Mild inflammation was seen surrounding the orifice with the stent seen protruding from it. The stent was then grasped and removed in its entirety. Specimens Removed: None Postoperative Information The patient tolerated the procedure well and was subsequently discharged home. Assessment/Plan 1. Gross hematuria (R31.0: Gross hematuria) 3 episodes of gross hematuria, initial was a few yrs ago. second was in Jun 2021 - CT with contrast showed no abnormalities, cx only showed 10-49k E Coli and 1-9k group B strep, reports she was treated with 3 or 4 different abx before the blood finally cleared. cysto September 2021 normal. pt started having gross hematuria again a week ago, with L flank pain. no significant dysuria/burning, no major change in frequency/urgency. went to PCP and they started her on Bactrim x 3 days empirically. went to [place] ER next day bc blood persisted. CT without contrast showed no hydro and no stones, urine cx negative. finished abx and blood/L flank pain persisted a few more days. 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 Follow up in 3-4 mos w/PVR. All questions/concerns were discussed. Pt to call the office if she encounters any issues prior. Pt acknowledges understanding. 2. Flank pain (R10.9: Unspecified abdominal pain) -See #1 3. Foreign body in bladder (T19.1XXA: Foreign body in bladder, initial encounter) Pt had IO cysto/Lt stent removal today without complications. Follow-up With When Contact Information ROLANDO DEVLIN, Rishi Ghosh, MOHINI In 4 months [facility] [address], [place] [address]- Additional Instructions: w/PVR Patient Education Hematuria, Adult I, Johana De Jesus , personally scribed for Dr. Marshall on 05/10/2023 11:52:58. . Portions of this record may have been created with voice recognition artificial intelligence software, specifically [employer], [employer] and or [employer]. Substitutions may have occurred due to the inherent limitations of voice recognition and artificial intelligence software. Documentation recorded by the scribe, Johana De Jesus, accurately reflects the services(s) I performed and decisions made by me. Problem List/Past Medical History Ongoing Anxiety Asthma Bipolar disorder Chronic depression Complicated migraine Endometriosis Flank pain Foreign body in bladder Gross hematuria Schizophrenia Urge incontinence Historical Cystitis Procedure/Surgical History Stent removal (05/10/2023), Cystoscopy (09/29/2021), EGD (esophagogastroduodenoscopy) gastric outlet reduction, Endometrial ablation, Ovarian cystectomy. Medications Adipex-P, Oral, Daily Albuterol (Eqv-ProAir HFA) 90 mcg/inh inhalation aerosol, Inhalation, q6hr aripiprazole 5 mg Tab, Oral, Daily busPIRon (more content not included)... [facility] Comment on above: Result Comment: Elec tronically Signed By: Rishi MARSHALL MD\.br\Date and Time Signed: 05/10/23 11:55 EST\.br\Electronically Co-Signed By: Johana De Jesus\.br\Date and Time Co-Signed: 05/10/23 11:53 EST RAD - MISCon 04-26-2023 RAD - MISC [id number]#1.00TIF F [facility] Lab Reportson 04-15-2023 Lab Reports [id number]#1.00TI FF [facility] Operative Reporton Operative Report [id number]#1.00TIFF [facility] Lab Reportson 04-08-2023 Lab Reports [id number]#1.00T IFF [facility] Insurance Correspondenceon 05-30-2022 Insurance Correspondence [id number]#1.00TIFF Normal [facility] Consent for Procedure/Surger yon 03-24-2023 Consent for Procedure/Surgery [id number]#1.00TIFF Normal [facility] CT ABDOMEN PELVIS W IV CONTR Derrick 03-11-2023 CT ABDOMEN PELVIS W IV CONTRAST EXAMINATION: CT OF THE ABDOMEN AND PELVIS WITH CONTRAST 03/10/2023 6:26 pm TECHNIQUE: CT of the abdomen and pelvis was performed with the administration of intravenous contrast. Multiplanar reformatted images are provided for review. Automated exposure control, iterative reconstruction, and/or weight based adjustment of the mA/kV was utilized to reduce the radiation dose to as low as reasonably achievable. COMPARISON: 10/11/2021 HISTORY: ORDERING SYSTEM PROVIDED HISTORY: Flank pain / vomiting TECHNOLOGIST PROVIDED HISTORY: Flank pain / vomiting Decision Support Exception - unselect if not a suspected or confirmed emergency medical condition->Emergency Medical Condition (MA) FINDINGS: Lower Chest: No active disease. Organs: The liver, gallbladder, pancreas and spleen, adrenals, kidneys, aorta and IVC appear stable. GI/Bowel: No evidence of bowel obstruction or perforation. No evidence of bowel wall thickening. Small bowel appears unremarkable. Pelvis: The uterus, adnexa and urinary bladder appear unremarkable. No evidence of lymphadenopathy. Peritoneum/Retroperitoneum: No evidence of retroperitoneal lymphadenopathy. No acute mesenteric findings. No evidence of significant hernias. Bones/Soft Tissues: No active disease. IMPRESSION: 1. No acute abnormalities in the abdomen or pelvis. No evidence of acute appendicitis or diverticulitis. 2. No evidence of renal stones, obstructive uropathy or renal inflammation or mass. 3. No evidence of tumor, lymphadenopathy or abscess. Interpreted by: Jennie Hernández MD Signed by: Jennie Hernández MD 03/11/23 Final result Normal [facility] Cult,Urineon 03-11-2023 Cult,Urine Specimen Description .CLEAN CATCH URINE Culture NO SIGNIFICANT GROWTH Report Status FINAL 03/11/2023 Normal [facility] Comment on above: Performed By: #### U #### [facility] [employer] [address] [place] [address] Science Interpreter: Omar Segundo MD [facility] [address] [place] [address] [place] [address] Science Interpreter: Cholo Alicea MD CBC with Diffon 03-10-2023 Abs. Basophil 0.05 k/uL Normal 0.00-0.20 [facility] Comment on above: Performed By: #### C DP, CP, CK #### [address] [place], [facility] Science Interpreter: Cholo Alicea MD Abs.Imm.Granulocyte <0.03 Normal 0.00-0.30 [facility] Comment on above: Performed By: #### C DP, CP, CK #### [address] [place], [place] [address] Science Interpreter: Cholo Alicea MD Abs.Neutrophil (Seg) 3.36 k/uL Normal 1.50-8.10 [facility] Comment on above: Performed By: #### C DP, CP, CK #### [address] [place], [facility] Science Interpreter: Cholo Alicea MD Basophils/100 WBC (Bld) 1 % Normal 0-2 [facility] Comment on above: Performed By: #### C DP, CP, CK #### [address] [place], [facility] Science Interpreter: Cholo Alicea MD Eosinophils (Bld) [#/Vol] 0.05 10*3/uL Normal 0.00-0.4 4 [facility] Comment on above: Performed By: #### C DP, CP, CK #### [address] [place], [facility] Science Interpreter: Cholo Alicea MD Eosinophils/100 WBC (Bld) 1 % Normal 1-4 [facility] Comment on above: Performed By: #### C DP, CP, CK #### [address] [place] [address] Science Interpreter: Cholo Alicea MD Erythrocyte distribution wid th (RBC) [Ratio] 11.9 % Normal 11.8-14.4 [facility] Comment on above: Performed By: #### C DP CP, CK #### [address] [place] [id number] Science Interpreter: Cholo Alicea MD Hematocrit (Bld) [Volume fraction] 37.5 % Normal 3 6.3-47.1 [facility] Comment on above: Performed By: #### C ALEXA, CP, CK #### [address] [place] [address] Science Interpreter: Cholo Alicea MD Hemoglobin (Bld) [Mass/Vol] 12.9 g/dL Normal 11.9-15. 1 [facility] Comment on above: Performed By: #### C ALEXA CP, CK #### [address] [place], [place] [address] Science Interpreter: Cholo Alicea MD Immature granulocytes/100 WBC (Bld) 0 % Normal 0 [facility] Comment on above: Performed By: #### C ANTONIA LIU, CK #### [address] [place] [address] Science Interpreter: Cholo Alicea MD Lymphocytes (Bld) [#/Vol] 2.79 10*3/uL Normal 1.10-3.7 0 [facility] Comment on above: Performed By: #### C DP, CP, CK #### [address] [place], [facility] Science Interpreter: Cholo Alicea MD Lymphocytes/100 WBC (Bld) 42 % Normal 24-43 [facility] Comment on above: Performed By: #### C DP, CP, CK #### [address] [place], [facility] Science Interpreter: Cholo Alicea MD MCH (RBC) [Entitic mass] 30.4 pg Normal 25.2-33.5 [facility] Comment on above: Performed By: #### C ANTONIA LIU, CK #### [address] [place], [place] 1779683 Science Interpreter: Cholo Alicea MD MCHC (RBC) [Mass/Vol] 34.4 g/dL Normal 28.4-34.8 [facility] Comment on above: Performed By: #### C ALEXA CP, CK #### [address] [place], [place] [address]83 Science Interpreter: Cholo Alicea MD MCV (RBC) [Entitic vol] 88.2 fL Normal 82.6-102.9 [facility] Comment on above: Performed By: #### C ANTONIA LIU, CK #### [address] [place], [facility] Science Interpreter: Cholo Alicea MD Monocytes (Bld) [#/Vol] 0.46 10*3/uL Normal 0.10-1.20 [facility] Comment on above: Performed By: #### C ANTONIA LIU, CK #### [address] [place] [address] Science Interpreter: Cholo Alicea MD Monocytes/100 WBC (Bld) 7 % Normal 3-12 [facility] Comment on above: Performed By: #### C ALEXA CP, CK #### [address] [place] [address] Science Interpreter: Cholo Alicea MD Neutrophil (Seg) 49 % Normal 36-65 [facility] Comment on above: Performed By: #### C ALEXA CP, CK #### [facility] [address] [place], [place] [id number] Science Interpreter: Cholo Alicea MD NRBC Automated 0.0 per 100 WBC Normal 0.0 [facility] Comment on above: Performed By: #### C DP CP, CK #### [address] [place], [place] [address] Science Interpreter: Cholo Alicea MD Platelet mean volume (Bld) [ Entitic vol] 10.5 fL Normal 8.1-13.5 [facility] Comment on above: Performed By: #### C DP, CP, CK #### [address] [place], [place] [address] Science Interpreter: Cholo Alicea MD Platelets (Bld) [#/Vol] 320 10*3/uL Normal 138-453 [facility] Comment on above: Performed By: #### C ALEXA CP, CK #### [address] [place], [facility] Science Interpreter: Cholo Alicea MD RBC (Bld) [#/Vol] 4.25 10*6/uL Normal 3.95-5.11 [facility] Comment on above: Performed By: #### C ANTONIA LIU, CK #### [address] [place], [facility] Science Interpreter: Cholo Alicea MD WBC (Bld) [#/Vol] 6.7 10*3/uL Normal 3.5-11.3 [facility] Comment on above: Performed By: #### C ALEXA CP, CK #### [address] [place], [facility] Science Interpreter: Cholo Alicea MD Comp Metabolic Profon 2022 Albumin [Mass/Vol] 4.6 g/dL Normal 3.5-5.2 [facility] Comment on above: Performed By: #### C DP CP, CK #### [address] [place], [facility] Science Interpreter: Cholo Alicea MD Albumin/Glob Ratio 1.5 Normal 1.0-2.5 [facility] Comment on above: Performed By: #### C DP, CP, CK #### [facility] [address] [place], [place] [address]83 Science Interpreter: Cholo Alicea MD Alkaline Phos 72 U/L Normal 35-104 [facility] Comment on above: Performed By: #### C DP, CP, CK #### [facility] [address] [place], [place] 5049183 Science Interpreter: Cholo Alicea MD ALT [Catalytic activity/Vol] 42 U/L High 5-33 [facility] Comment on above: Performed By: #### C DP, CP, CK #### [address] [place], [place] 8085683 Science Interpreter: Cholo Alicea MD Anion gap [Moles/Vol] 11 mmol/L Normal 9-17 [facility] Comment on above: Performed By: #### C DP, CP, CK #### [address] [place], [place] 9587383 Science Interpreter: Cholo Alicea MD AST [Catalytic activity/Vol] 31 U/L Normal <32 [facility] Comment on above: Performed By: #### C DP, CP, CK #### [facility] [address] [place] [address] Dr[place], [place] 0334183 Science Interpreter: Cholo Alicea MD Bilirubin [Mass/Vol] 0.4 mg/dL Normal 0.3-1.2 [facility] Comment on above: Performed By: #### C DP, CP, CK #### [facility] [address] [place] [address] Science Interpreter: Cholo Alicea MD BUN/CRE Ratio 10 Normal 9-20 [facility] Comment on above: Performed By: #### C DP, CP, CK #### [facility] [address] [place] [address] Science Interpreter: Cholo Alicea MD Calcium [Mass/Vol] 10.4 mg/dL Normal 8.6-10.4 [facility] Comment on above: Performed By: #### C DP, CP, CK #### [facility] [address] [place], [place] [address]83 Science Interpreter: Cholo Alicea MD Chloride [Moles/Vol] 101 mmol/L Normal 98-107 [facility] Comment on above: Performed By: #### C ALEXA CP, CK #### [address] [place] [address] Science Interpreter: Cholo Alicea MD CO2 [Moles/Vol] 26 mmol/L Normal 20-31 [facility] Comment on above: Performed By: #### C ALEXA CP, CK #### [address] [place], [place] 2542383 Science Interpreter: Cholo Alicea MD Creatinine [Mass/Vol] 0.9 mg/dL Normal 0.5-0.9 [facility] Comment on above: Performed By: #### C ALEXA CP, CK #### [address] [place], [place] [address]47183 Science Interpreter: Cholo Alicea MD GFR/1.73 sq M.predicted vilma g non-blacks MDRD (S/P/Bld) [Vol rate/Area] mL/min/{1.73_m2} Normal >60 [facility] Comment on above: Result Comment: These results are not intended for use in patients <18 years of age. eGFR results are calculated without a race factor using the 2020 CKD-EPI equation. Careful clinical correlation is recommended, particularly when comparing to results calculated using previous equations. The CKD-EPI equation is less accurate in patients with extremes of muscle mass, extra-renal metabolism of creatine, excessive creatine ingestion, or following therapy that affects renal tubular secretion. Performed By: #### C DP, CP, CK #### [facility] [address] [place], [place] [address]83 Science Interpreter: Cholo Alicea MD Glucose [Mass/Vol] 97 mg/dL Normal 70-99 [facility] Comment on above: Performed By: #### C DP, CP, CK #### [facility] [address] [place], [place] 2383983 Science Interpreter: Cholo Alicea MD Potassium [Moles/Vol] 4.2 mmol/L Normal 3.7-5.3 [facility] Comment on above: Performed By: #### C DP, CP, CK #### [facility] [address] [place], [place] [address]83 Science Interpreter: Cholo Alicea MD Protein [Mass/Vol] 7.6 g/dL Normal 6.4-8.3 [facility] Comment on above: Performed By: #### C DP, CP, CK #### [facility] [address] [place], [place] [address]83 Science Interpreter: Cholo Alicea MD Sodium [Moles/Vol] 138 mmol/L Normal 135-144 [facility] Comment on above: Performed By: #### C DP, CP, CK #### [facility] [address] [place] [address] Science Interpreter: Cholo Alicea MD Urea nitrogen [Mass/Vol] 9 mg/dL Normal 6-20 [facility] Comment on above: Performed By: #### C DP, CP, CK #### [facility] [address] [place], [place] [address]073383 Science Interpreter: Cholo Alicea MD Creatine Kinaseon 03-10-2023 CK [Catalytic activity/Vol] 51 U/L Normal 26-192 [facility] Comment on above: Performed By: #### C DP, CP, CK #### [facility] [address] [place] [address] Science Interpreter: Cholo Alicea MD HCG, ,Urineon 03-10 Beta HCG ( test) Ql (U) Negative Normal NEG [facility] Comment on above: Result Comment: Spec imens with hCG levels near the threshold of the test (25 mIU/mL) may give a negative or indeterminate result. In such cases, another test should be performed with a new specimen in 48-72 hours. If early is suspected clinically in this setting, correlation with quantitative serum b-hCG level is suggested. [facility] has confirmed the use of plasma for this test. This has not been cleared or approved by the U.S. Food and Drug Administration. The FDA has determined that such clearance is not necessary. Performed By: #### U HCG, UAMIC #### [facility] [address] [place] [address] [place] [address] Science Interpreter: Cholo Alicea MD Urinalysis w/ Microon 7 Bacteria TRACE Abnormal NONE [facility] Comment on above: Performed By: #### L IP, CDP, CP #### [facility] [address] [place] [address] [place] [address] Science Interpreter: Cholo Alicea MD Bilirubin, SemiQt,Ur Negative Normal NEG [facility] Comment on above: Performed By: #### L IP, CDP, CP #### [address] [place] [address] Science Interpreter: Cholo Alicea MD Blood, Urine Negative Normal [facility] Comment on above: Performed By: #### L IP, CDP, CP #### [facility] [address] [place] [address] Science Interpreter: Cholo Alicea MD Clarity (U) Clear Normal CLEAR [facility] Comment on above: Performed By: #### L IP, CDP, CP #### [facility] [address] [place] [address] Science Interpreter: Cholo Alicea MD Color (U) Yellow Normal YEL [facility] Comment on above: Performed By: #### L IP, CDP, CP #### [address] [place], [place] 7040583 Science Interpreter: Cholo Alicea MD Epithelial cells LM Ql (Urine sed) 0 TO 2 Normal 0 -25 [facility] Comment on above: Performed By: #### L IP, CDP, CP #### [address] [place], [place] 9838683 Science Interpreter: Cholo Alicea MD Glucose Ql (U) Negative Normal NEG [facility] in Hospital Comment on above: Performed By: #### L IP, CDP, CP #### [address] [place], [place] 2210183 Science Interpreter: Cholo Alicea MD Ketones Ql (U) Negative Normal NEG [facility] in Hospital Comment on above: Performed By: #### L IP, CDP, CP #### [address] [place], [place] 2121583 Science Interpreter: Cholo Alicea MD Leukocyte esterase Test strip Ql (U) Negative Normal NEG [facility] Comment on above: Performed By: #### L IP, CDP, CP #### [address] [place], [place] 6717783 Science Interpreter: Cholo Alicea MD Nitrite,Ur Negative Normal NEG [facility] Comment on above: Performed By: #### L IP, CDP, CP #### [address] [place], [place] 9813183 Science Interpreter: Cholo Alicea MD PH,Ur 7.5 Normal 5.0-9.[address] [facility] Comment on above: Performed By: #### L IP, CDP, CP #### [address] [place], [place] [address]49783 Science Interpreter: Cholo Alicea MD Protein Ql (U) Negative Normal NEG [facility] Comment on above: Performed By: #### L IP, CDP, CP #### [facility] [address] [place] [address] [place] [address] Science Interpreter: Cholo Alicea MD Spec. [place],Ur 1.010 Normal 1.010-1.020 [facility] Comment on above: Performed By: #### L IP, CDP, CP #### [facility] [address] [place] [address] Dr[place], [place] 1182583 Science Interpreter: Cholo Alicea MD Urine RBC's None Normal 0-2 [facility] Comment on above: Performed By: #### L IP, CDP, CP #### [address] [place], [place] 1525083 Science Interpreter: Cholo Alicea MD Urine WBC's 0 TO 2 Normal 0-5 [facility] Comment on above: Performed By: #### L IP, CDP, CP #### [address] [place] [address] Science Interpreter: Cholo Alicea MD Urobilinogen,Ur Normal Normal 0.0-1.0 [facility] Comment on above: Performed By: #### L IP, CDP, CP #### [facility] [address] [place] [address] [place] [address] Science Interpreter: Cholo Alicea MD COVID + FLU Quick Testingon 5 SARS-CoV-2 (COVID-19) RNA NA A+probe Ql (Unsp spec) Negative [facility] [employer] Other COVID + FLU Quick Testing Negative [employer] [facility] [employer] Other Quick Strepon 02-11-2023 S. pyogenes Org specific cx Ql (Throat) Negative [facility] Other Quick Strep [facility] [employer] Other [place] [facility] LULÚ GAITAN ([id number]) 1995 F Date Time Provider Department 02/03/23 CHRISTINE MACIAS GAST During your visit today, we recorded the following information about you: Viviana David 02/03/2023 3:38 PM Signed ----- Message from Rizwana Garcia Pss sent at 02/01/2023 3:13 PM EDT ----- Regarding: Delayed Gastric Emptying No patient name on file. is being referred to or the Gastroparesis clinic. Referring Physician: Dr. Matthew milton Has the patient had a Gastric Emptying Study? Yes Which facility or hospital was the Gastric Emptying Study done at (please list full name of hospital or facility)? [facility] If the patient had a gastric emptying study were the results abnormally delayed? Yes Has the patient had a Smart Pill? No Has the patient had Gastric Bypass? No Has the patient had a Gastric Sleeve? No Has the patient had a Zayda/Hiatal Hernia/Repair? Umbilical Hernia Repair Has the patient had POP/Pyloroplasty? No Is the patient currently on TPN? No Does the patient have a G/J Tube?No Preferred phone number for contact: [phone] ? Viviana aDvid 02/03/2023 3:38 PM Signed Left VM for patient to call office to update registration and go over records needed for review prior to scheduling. Viviana David 02/08/2023 4:12 PM Signed Updated patient information. Patient will have referral and GES faxed to office for review. Viviana David 02/09/2023 7:45 AM Signed GES is in scanned documents ready for review. Christine Macias DO 02/09/2023 6:11 PM Signed This was read as abnormal but is normal at 4hrs. There is no GP here. Please send letter to primary Kait Jewell 02/10/2023 4:25 PM Signed Letter was sent out to the referring physician Dr. Matthew Lemus from Dr. Macias regarding normal GES results. Viviana David Yolette 02/11/2023 2:18 PM Signed Left VM in regards to normal GES Allergies As of Date: 02/03/2023 (Not on File) Date Reviewed: Never Reviewed Reason for Visit: Appointment [186] Problem List As Of Date: 02/03/2023 (None) Letter Text Encounter Status:Closed by VIVIANA DAVID on 02/04/23 Normal [facility] ECG 12 lead ECGon 02-03-2023 ECG 12 lead ECG [facility] [place] [address] Electrocardiograph Report Signed Patient: Lulú Gaitan MR#: [id number] 4 : 1995 Acct:[id number] Age/Sex: 27 / F ADM Date: 02/02/23 Loc: Room: [address] [place] [address] Type: ADM IN Attending Dr: Karri Kamara MD Ordering Provider: Karri Kamara MD Date of Service: 02/03/2312/19/499 ECG/ECG 12 lead ECG: baseline for psych meds Copies to: Test Reason : Blood Pressure : / mmHG Vent. Rate : 063 BPM Atrial Rate : 063 BPM P-R Int : 170 ms QRS Dur : 102 ms QT Int : 394 ms P-R-T Axes : 053 045 010 degrees QTc Int : 403 ms Sinus rhythm with marked sinus arrhythmia Otherwise normal ECG When compared with ECG of 09-JAN-2021 07:40, No significant change was found Confirmed by CHARLES MAURO MD ([id number]) on 02/04/2023 1:19:28 PM Referred By: Electronically Signed By:CHARLES MAURO MD Transcribed By: MUS Signed By Charles Mauro MD 0 02/04/23 1319 Normal [facility] Alanine aminotransferase [En zymatic activity/volume] in Serum or PlasmaOrdered By: Matthew Leslie on 02-02-2023 ALT [Catalytic activity/Vol] 38 U/L 7-52 [facility] Albumin [Mass/volume] in Ser um or Plasma by Bromocresol green (BCG) dye binding methoOrdered By: Matthew Leslie on 02-02-2023 Albumin BCG dye [Mass/Vol] 4.6 g/dL 3.5-5.7 [facility] Alkaline phosphatase [Enzyma tic activity/volume] in Serum or PlasmaOrdered By: Matthew Leslie on 02-02-2023 ALP [Catalytic activity/Vol] 54 U/L 34-104 [facility] Amphetamine Screen Ql (U)Ord ered By: Matthew Leslie on 02-02-2023 Amphetamines Ql (U) Negative Negative [facility] Aspartate aminotransferase [ Enzymatic activity/volume] in Serum or PlasmaOrdered By: Matthew Leslie on 02-02-2023 AST [Catalytic activity/Vol] 32 U/L 13-39 [facility] Automated erythrocytes count in urine sediment (number/area)Ordered By: Matthew Leslie on 02-02-2023 RBC Auto (Urine sed) [#/Area] 10-19 [HPF] 0-4 [facility] Automated leukocytes count i n urine sediment (number/area)Ordered By: Matthew Leslie on 02-02-2023 WBC Auto (Urine sed) [#/Area] 10-19 [HPF] 0-4 [facility] Automated urine hyaline cast s count (number/volume)Ordered By: Matthew Leslie on 02-02-2023 Hyaline casts Auto (U) [#/Vol] 0-1 [LPF] 0-1 [facility] Barbiturates [Presence] in U rine by Screen methodOrdered By: Matthew Leslie on 02-02-2023 Barbiturates Screen Ql (U) Negative Negative [facility] Basophils Auto (Bld) [#/Vol] Ordered By: Matthew Leslie on 02-02-2023 Basophils (Bld) [#/Vol] 0.1 10*3/uL 0.0-0.2 [facility] Basophils/100 WBC Auto (Bld) Ordered By: Matthew Leslie on 02-02-2023 Basophils/100 WBC (Bld) 0.9 % . [facility] Benzodiazepines Screen Ql (U )Ordered By: Matthew Leslie on 02-02-2023 Benzodiazepines Ql (U) Negative Negative [facility] Benzoylecgonine [Presence] i n Urine by Screen methodOrdered By: Matthew Leslie on 02-02-2023 Benzoylecgonine Screen Ql (U) Negative Negati ve [facility] Bilirubin Test strip Ql (U)O rdered By: Matthew Leslie on 02-02-2023 Bilirubin Ql (U) Negative Negative [facility] [place] Bilirubin.direct [Mass/volum e] in Serum or PlasmaOrdered By: Matthew Leslie on 02-02-2023 Bilirubin.direct [Mass/Vol] 0.10 mg/dL 0.03-0.1 8 [facility] Bilirubin.total [Mass/volume ] in Serum or PlasmaOrdered By: Matthew Leslie on 02-02-2023 Bilirubin [Mass/Vol] 0.6 mg/dL 0.3-1.0 [facility] Calcium [Mass/volume] in Ser um or PlasmaOrdered By: Matthew Leslie on 02-02-2023 Calcium [Mass/Vol] 9.5 mg/dL 8.6-10.3 [facility] Cannabinoids [Presence] in U rine by Screen methodOrdered By: Matthew Leslie on 02-02-2023 Cannabinoids Screen Ql (U) Negative Negative [facility] Comment on above: These are unconfirme d results and should not be used for legal purposes. Drug Cut-Off Concentration: AMPH 1000 ng/mL PONCHO 200 ng/mL KRISTAN 200 ng/mL COCM 300 ng/mL OP 300 ng/mL PCP 25 ng/mL THC 20 ng/mL Carbon dioxide, total [Moles /volume] in Serum or PlasmaOrdered By: Matthew Leslie on 02-02-2023 CO2 [Moles/Vol] 28.3 mmol/L 21.0-31.0 [facility] [place] Casts typing in urine sedime nt by light microscopyOrdered By: Matthew Leslie on 02-02-2023 Casts LM Nom (Urine sed) None seen [LPF] None S een [facility] Chloride [Moles/volume] in S barbra or PlasmaOrdered By: Matthew Leslie on 02-02-2023 Chloride [Moles/Vol] 107 mmol/L 98-107 [facility] Color Auto (U)Ordered By: Mariela Leslie on 02-02-2023 Color (U) Yellow Yellow [facility] Complete Blood Count Auto Di ffon 02-02-2023 Basophils (Bld) [#/Vol] 0.1 10*3/uL Normal 0.0-0.2 [facility] Comment on above: Result Comment: PERF ORMED BY: [place] [address] PATHOLOGIST MANAGER MACHINE MOISES VELASCO M.D. Performed By: #### H EPATIC, TSH3 wRFLX, CBC, CMP, [id number], ETOH #### [address] Basophils/100 WBC (Bld) 0.9 % Normal . [facility] Comment on above: Performed By: #### H EPATIC, TSH3 wRFLX, CBC, CMP, [id number], ETOH #### [address] Eosinophils (Bld) [#/Vol] 0.0 10*3/uL Normal 0.0-0.45 [facility] Comment on above: Performed By: #### H EPATIC, TSH3 wRFLX, CBC, CMP, [id number], ETOH #### [address] Eosinophils/100 WBC (Bld) 0.4 % Normal . [facility] Comment on above: Performed By: #### H EPATIC, TSH3 wRFLX, CBC, CMP, [id number], ETOH #### [address] Erythrocyte distribution wid th (RBC) [Ratio] 12.9 % Normal 11.9-15.3 [facility] Comment on above: Performed By: #### H EPATIC, TSH3 wRFLX, CBC, CMP, [id number], ETOH #### [address] Hematocrit (Bld) [Volume fraction] 41.1 % Normal 34.0-46.4 [facility] Comment on above: Performed By: #### H EPATIC, TSH3 wRFLX, CBC, CMP, [id number], ETOH #### [address] Hemoglobin (Bld) [Mass/Vol] 13.8 g/dL Normal 11.8-15. 4 [facility] Comment on above: Performed By: #### H EPATIC, TSH3 wRFLX, CBC, CMP, [id number], ETOH #### [address] Lymphocytes (Bld) [#/Vol] 2.7 10*3/uL Normal 1.00-4.8 [facility] Comment on above: Performed By: #### H EPATIC, TSH3 wRFLX, CBC, CMP, [id number], ETOH #### [address] Lymphocytes/100 WBC (Bld) 36.0 % Normal . [facility] Comment on above: Performed By: #### H EPATIC, TSH3 wRFLX, CBC, CMP, [id number], ETOH #### [address] MCH (RBC) [Entitic mass] 29.4 pg Normal 24.7-34.3 [facility] Comment on above: Performed By: #### H EPATIC, TSH3 wRFLX, CBC, CMP, [id number], ETOH #### [address] MCV (RBC) [Entitic vol] 87.6 fL Normal 80-100 [facility] Comment on above: Performed By: #### H EPATIC, TSH3 wRFLX, CBC, CMP, [id number], ETOH #### [address] Mean Corpuscular HGB Conc 33.6 g/dL Normal 32.0-35.0 [facility] Comment on above: Performed By: #### H EPATIC, TSH3 wRFLX, CBC, CMP, [id number], ETOH #### [place] [address] [place] Monocytes (Bld) [#/Vol] 0.6 10*3/uL Normal 0.0-0.8 [facility] Comment on above: Performed By: #### H EPATIC, TSH3 wRFLX, CBC, CMP, [id number], ETOH #### [address] Monocytes/100 WBC (Bld) 17.83 % Normal 0.00-20.00 [facility] Comment on above: Performed By: #### H EPATIC, TSH3 wRFLX, CBC, CMP, [id number], ETOH #### [address] Monocytes/100 WBC (Bld) 7.9 % Normal . [facility] Comment on above: Performed By: #### H EPATIC, TSH3 wRFLX, CBC, CMP, [id number], ETOH #### [place] [address] [place] Neutrophils (Bld) [#/Vol] 4.2 10*3/uL Normal 1.8-7.7 [facility] Comment on above: Performed By: #### H EPATIC, TSH3 wRFLX, CBC, CMP, [id number], ETOH #### [address] Neutrophils/100 WBC (Bld) 54.8 % Normal . [facility] Comment on above: Performed By: #### H EPATIC, TSH3 wRFLX, CBC, CMP, [id number], ETOH #### [place] [address] [place] NRBC% 0.0 /100{WBC} Normal 0-0.5 [facility] Comment on above: Performed By: #### H EPATIC, TSH3 wRFLX, CBC, CMP, [id number], ETOH #### [place] [address] [place] Platelet mean volume (Bld) [Entitic vol] 9.2 fL Normal 6.3-10.7 [facility] Comment on above: Performed By: #### H EPATIC, TSH3 wRFLX, CBC, CMP, [id number], ETOH #### [facility] [address] Platelets (Bld) [#/Vol] 322 10*3/uL Normal 150-450 [facility] Comment on above: Performed By: #### H EPATIC, TSH3 wRFLX, CBC, CMP, [id number], ETOH #### [facility] [address] RBC (Bld) [#/Vol] 4.70 10*6/uL Normal 3.60-5.00 [facility] Comment on above: Performed By: #### H EPATIC, TSH3 wRFLX, CBC, CMP, [id number], ETOH #### [facility] [address] WBC (Bld) [#/Vol] 7.6 10*3/uL Normal 3.8-11.6 [facility] Comment on above: Performed By: #### H EPATIC, TSH3 wRFLX, CBC, CMP, [id number], ETOH #### [facility] [address] Comprehensive Metabolic Pane akbar 02-02-2023 Albumin [Mass/Vol] 4.6 g/dL Normal 3.5-5.7 [facility] Comment on above: Performed By: #### H EPATIC, TSH3 wRFLX, CBC, CMP, [id number], ETOH #### [facility] [address] Albumin/Globulin [Mass ratio] 1.4 {ratio} Normal [facility] Comment on above: Performed By: #### H EPATIC, TSH3 wRFLX, CBC, CMP, [id number], ETOH #### [facility] [address] ALP [Catalytic activity/Vol] 54 U/L Normal 34-104 [facility] Comment on above: Performed By: #### H EPATIC, TSH3 wRFLX, CBC, CMP, [id number], ETOH #### [address] ALT [Catalytic activity/Vol] 38 U/L Normal 7-52 [facility] Comment on above: Performed By: #### H EPATIC, TSH3 wRFLX, CBC, CMP, [id number], ETOH #### [address] Anion gap [Moles/Vol] 9.5 mmol/L Normal 6.0-15.0 [facility] Comment on above: Performed By: #### H EPATIC, TSH3 wRFLX, CBC, CMP, [id number], ETOH #### [address] AST [Catalytic activity/Vol] 32 U/L Normal 13-39 [facility] Comment on above: Performed By: #### H EPATIC, TSH3 wRFLX, CBC, CMP, [id number], ETOH #### [address] Bilirubin [Mass/Vol] 0.6 mg/dL Normal 0.3-1.0 [facility] Comment on above: Performed By: #### H EPATIC, TSH3 wRFLX, CBC, CMP, [id number], ETOH #### [facility] [address] [place] [address] Calcium [Mass/Vol] 9.5 mg/dL Normal 8.6-10.3 [facility] Comment on above: Performed By: #### H EPATIC, TSH3 wRFLX, CBC, CMP, [id number], ETOH #### [place] [address] [place] Chloride [Moles/Vol] 107 mmol/L Normal 98-107 [facility] Comment on above: Performed By: #### H EPATIC, TSH3 wRFLX, CBC, CMP, [id number], ETOH #### [address] [place] [address] [place] CO2 [Moles/Vol] 28.3 mmol/L Normal 21.0-31.0 [facility] Comment on above: Performed By: #### H EPATIC, TSH3 wRFLX, CBC, CMP, [id number], ETOH #### [facility] [address] Creatinine [Mass/Vol] 1.14 mg/dL Normal 0.60-1.20 [facility] Comment on above: Performed By: #### H EPATIC, TSH3 wRFLX, CBC, CMP, [id number], ETOH #### [address] Creatinine Clr Calc Pharmacy 76.05 Normal [facility] Comment on above: Result Comment: PERF ORMED BY: [place] [address] PATHOLOGIST MANAGER MACHINE MOISES VELASCO M.D. Performed By: #### H EPATIC, TSH3 wRFLX, CBC, CMP, [id number], ETOH #### [address] GFR/1.73 sq M.predicted MDRD (S/P/Bld) [Vol rate/Area] mL/min/{1.73_m2} Normal [facility] Comment on above: Performed By: #### H EPATIC, TSH3 wRFLX, CBC, CMP, [id number], ETOH #### [address] Globulin (S) [Mass/Vol] 3.2 g/dL Normal [facility] Comment on above: Performed By: #### H EPATIC, TSH3 wRFLX, CBC, CMP, [id number], ETOH #### [address] Glucose [Mass/Vol] 98 mg/dL Normal 70-100 [facility] Comment on above: Result Comment: [facility] Glucose Reference Range is dependent on time and content of last meal. Glucose of more than 200 mg/dL in a nonstressed, ambulatory subject supports the diagnosis of Diabetes Mellitus. ADA recommended reference range Performed By: #### H EPATIC, TSH3 wRFLX, CBC, CMP, [id number], ETOH #### [facility] [address] Potassium [Moles/Vol] 3.8 mmol/L Normal 3.5-5.1 [facility] Comment on above: Performed By: #### H EPATIC, TSH3 wRFLX, CBC, CMP, [id number], ETOH #### [address] Protein [Mass/Vol] 7.8 g/dL Normal 6.4-8.9 [facility] Comment on above: Performed By: #### H EPATIC, TSH3 wRFLX, CBC, CMP, [id number], ETOH #### [address] Sodium [Moles/Vol] 141 mmol/L Normal 136-145 [facility] Comment on above: Performed By: #### H EPATIC, TSH3 wRFLX, CBC, CMP, [id number], ETOH #### [facility] [address] [place] [address] Urea nitrogen [Mass/Vol] 11 mg/dL Normal 7-25 [facility] Comment on above: Performed By: #### H EPATIC, TSH3 wRFLX, CBC, CMP, [id number], ETOH #### [address] Creatinine [Mass/volume] in Serum or PlasmaOrdered By: Mtathew Leslie on 02-02-2023 Creatinine [Mass/Vol] 1.14 mg/dL 0.60-1.20 [facility] Dipstick and Microscopicon 0 02-02-2023 Appearance (U) Cloudy Critically abnormal Clear [facility] Comment on above: Order Comment: Name Collection Type:: Clean-Voided Midstream Performed By: #### U HCG, ADDONUAPLUS, URDS, CUU #### [address] Bacteria,Urine 1+ High None Seen [facility] Comment on above: Order Comment: Name Collection Type:: Clean-Voided Midstream Performed By: #### U HCG, ADDONUAPLUS, URDS, CUU #### [facility] [address] [place] [address] [place] Bilirubin,Urine Negative Normal Negative [facility] Comment on above: Order Comment: Name Collection Type:: Clean-Voided Midstream Performed By: #### U HCG, ADDONUAPLUS, URDS, CUU #### [facility] [address] [place] [address] Color (U) Yellow Normal Yellow [facility] Comment on above: Order Comment: Name Collection Type:: Clean-Voided Midstream Performed By: #### U HCG, ADDONUAPLUS, URDS, CUU #### [facility] [address] [place] [address] Glucose Ql (U) Normal Normal Normal [facility] Comment on above: Order Comment: Name Collection Type:: Clean-Voided Midstream Performed By: #### U HCG, ADDONUAPLUS, URDS, CUU #### [facility] [address] [place] [address] Hyaline Casts,Urine 0-1 Normal 0-1 [facility] Comment on above: Order Comment: Name Collection Type:: Clean-Voided Midstream Performed By: #### U HCG, ADDONUAPLUS, URDS, CUU #### [facility] [address] [place] [address] [place] Ketones Ql (U) 2+ High Negative [facility] Comment on above: Order Comment: Name Collection Type:: Clean-Voided Midstream Performed By: #### U HCG, ADDONUAPLUS, URDS, CUU #### [facility] [address] [place] [address] Leukocyte esterase Test stri p Ql (U) 2+ High Negative [facility] Comment on above: Order Comment: Name Collection Type:: Clean-Voided Midstream Performed By: #### U HCG, ADDONUAPLUS, URDS, CUU #### [facility] [address] [place] [address] [place] Nitrite,Urine Negative Normal Negative [facility] Comment on above: Order Comment: Name Collection Type:: Clean-Voided Midstream Performed By: #### U HCG, ADDONUAPLUS, URDS, CUU #### [facility] [address] Occult Blood,Urine 3+ High Negative [facility] Comment on above: Order Comment: Name Collection Type:: Clean-Voided Midstream Performed By: #### U HCG, ADDONUAPLUS, URDS, CUU #### [address] Other Casts,Urine None Seen Normal None Seen [facility] Comment on above: Order Comment: Name Collection Type:: Clean-Voided Midstream Performed By: #### U HCG, ADDONUAPLUS, URDS, CUU #### [address] pH (U) 6.0 [pH] Normal 5.0-9.0 [facility] Comment on above: Order Comment: Name Collection Type:: Clean-Voided Midstream Performed By: #### U HCG, ADDONUAPLUS, URDS, CUU #### [address] Protein (U) [Mass/Vol] 30 mg/dL High Negative [facility] Comment on above: Order Comment: Name Collection Type:: Clean-Voided Midstream Performed By: #### U HCG, ADDONUAPLUS, URDS, CUU #### [address] RBC,Urine 10-19 High 0-4 [facility] Comment on above: Order Comment: Name Collection Type:: Clean-Voided Midstream Performed By: #### U HCG, ADDONUAPLUS, URDS, CUU #### [address] Specificy [place],Urine 1.027 Normal 1.001-1.030 [facility] Comment on above: Order Comment: Name Collection Type:: Clean-Voided Midstream Performed By: #### U HCG, ADDONUAPLUS, URDS, CUU #### [address] Squamous Epithelial Cell,Urine 3-4 High 0-2 [facility] Comment on above: Order Comment: Name Collection Type:: Clean-Voided Midstream Performed By: #### U HCG, ADDONUAPLUS, URDS, CUU #### [address] Urobilinogen,Urine Normal Normal Normal [facility] Comment on above: Order Comment: Name Collection Type:: Clean-Voided Midstream Performed By: #### U HCG, ADDONUAPLUS, URDS, CUU #### [facility] [address] [place] [address] WBC,Urine 10-19 High 0-4 [facility] Comment on above: Order Comment: Name Collection Type:: Clean-Voided Midstream Performed By: #### U HCG, ADDONUAPLUS, URDS, CUU #### [facility] [address] [place] [address] Yeast,Urine None Seen Normal None Seen [facility] Comment on above: Order Comment: Name Collection Type:: Clean-Voided Midstream Performed By: #### U HCG, ADDONUAPLUS, URDS, CUU #### [address] Drug Screen,Urineon 02-03-20 23 Amphetamine Screen,Urine Negative Normal Negative [facility] Comment on above: Performed By: #### U HCG, ADDONUAPLUS, URDS, CUU #### [address] Barbiturate Screen,Urine Negative Normal Negative [facility] Comment on above: Performed By: #### U HCG, ADDONUAPLUS, URDS, CUU #### [address] Benzodiazepines Screen,Urine Negative Normal Negativ e [facility] Comment on above: Performed By: #### U HCG, ADDONUAPLUS, URDS, CUU #### [facility] [address] [place] [address] [place] Cannabinoid Screen,Urine Negative Normal Negative [facility] Comment on above: Result Comment: Thes e are unconfirmed results and should not be used for legal purposes. Drug Cut-Off Concentration: AMPH 1000 ng/mL PONCHO 200 ng/mL KRISTAN 200 ng/mL COCM 300 ng/mL OP 300 ng/mL PCP 25 ng/mL THC 20 ng/mL PERFORMED BY: [place] [address] PATHOLOGIST MANAGER MACHINE MOISES VELASCO M.D. Performed By: #### U HCG, ADDONUAPLUS, URDS, CUU #### [facility] [address] [place] [address] Cocaine Screen,Urine Negative Normal Negative [facility] Comment on above: Performed By: #### U HCG, ADDONUAPLUS, URDS, CUU #### [facility] [address] [place] [address] [place] Opiate Screen,Urine Negative Normal Negative [facility] Comment on above: Performed By: #### U HCG, ADDONUAPLUS, URDS, CUU #### [facility] [address] [place] [address] [place] Phencyclidine Screen,Urine Negative Normal Negative [facility] Comment on above: Performed By: #### U HCG, ADDONUAPLUS, URDS, CUU #### [facility] [address] [place] [address] [place] Eosinophils Auto (Bld) [#/Vo l]Ordered By: Matthew Leslie on 02-02-2023 Eosinophils (Bld) [#/Vol] 0.0 10*3/uL 0.0-0.45 [facility] Eosinophils/100 WBC Auto (Bl d)Ordered By: Matthew Leslie on 02-02-2023 Eosinophils/100 WBC (Bld) 0.4 % . [facility] Erythrocyte distribution wid th Auto (RBC) [Ratio]Ordered By: Matthew Leslie on 02-02-2023 Erythrocyte distribution wid th (RBC) [Ratio] 12.9 % 11.9-15.3 [facility] Ethanol [Mass/volume] in Ser um or PlasmaOrdered By: Matthew Leslie on 02-02-2023 Ethanol [Mass/Vol] mg/dL [facility] Ethanol [Mass/Vol] TNP [facility] Comment on above: Test not performed Ethyl Alcohol Profileon Ethanol [Mass/Vol] mg/dL Normal [facility] Comment on above: Performed By: #### H EPATIC, TSH3 wRFLX, CBC, CMP, [id number], ETOH #### [facility] [address] Percent Ethanol Not performed Normal [facility] Comment on above: Result Comment: PERF ORMED BY: [address] [place] [address] PATHOLOGIST MANAGER MACHINE MOISES VELASCO M.D. Performed By: #### H EPATIC, TSH3 wRFLX, CBC, CMP, [id number], ETOH #### [facility] [address] Globulin Calc (S) [Mass/Vol] Ordered By: Matthew Leslie on 02-02-2023 Globulin (S) [Mass/Vol] 3.2 g/dL [facility] Glucose [Mass/volume] in Ser um or PlasmaOrdered By: Matthew Leslie on 02-02-2023 Glucose [Mass/Vol] 98 mg/dL 70-100 [facility] Comment on above: ADA recommended refe rence rangeRandom Glucose Reference Range is dependent on time and content of last meal. Glucose of more than 200 mg/dL in a nonstressed, ambulatory subject supports the diagnosis of Diabetes Mellitus. HCG ( test) Jacquelyn izquierdo Ql (U)Ordered By: Matthew Leslie on 02-02-2023 HCG ( test) Ql (U) Negative [facility] HCG,Urineon 02-02-2023 Beta HCG ( test) Ql (U) Negative Normal [facility] Comment on above: Order Comment: Name Collection Type:: Clean-Voided Midstream Result Comment: PERF ORMED BY: [place] [address] PATHOLOGIST MANAGER MACHINE MOISES VELASCO M.D. Performed By: #### U HCG, ADDONUAPLUS, URDS, CUU #### [facility] [address] [place] [address] Hematocrit Auto (Bld) [Volum e fraction]Ordered By: Matthew Leslie on 02-02-2023 Hematocrit (Bld) [Volume fraction] 41.1 % 3 4.0-46.4 [facility] Hemoglobin [Mass/volume] in BloodOrdered By: Matthew Leslie on 02-02-2023 Hemoglobin (Bld) [Mass/Vol] 13.8 g/dL 11.8-15. 4 [facility] Hepatic Panelon 02-02-2023 Bilirubin,Indirect 0.5 mg/dL Normal [facility] Comment on above: Performed By: #### H EPATIC, TSH3 wRFLX, CBC, CMP, [id number], ETOH #### [facility] [address] [place] [address] Bilirubin.indirect [Mass/Vol] 0.10 mg/dL Normal 0.03-0 .18 [facility] Comment on above: Performed By: #### H EPATIC, TSH3 wRFLX, CBC, CMP, [id number], ETOH #### [facility] [address] [place] [address] Ketones Auto test strip (U) [Mass/Vol]Ordered By: Matthew Leslie on 02-02-2023 Ketones (U) [Mass/Vol] 2+ Negative [facility] Leukocytes [#/volume] correc alberto for nucleated erythrocytes in Blood by Automated counOrdered By: Matthew Leslie on 02-02-2023 WBC corrected for nucl RBC A uto (Bld) [#/Vol] 7.6 10*3/uL 3.8-11.6 [facility] Lymphocytes Auto (Bld) [#/Vo l]Ordered By: Matthew Leslie on 02-02-2023 Lymphocytes (Bld) [#/Vol] 2.7 10*3/uL 1.00-4.8 [facility] Lymphocytes/100 WBC Auto (Bl d)Ordered By: Matthew Leslie on 02-02-2023 Lymphocytes/100 WBC (Bld) 36.0 % . [facility] MCH Auto (RBC) [Entitic mass ]Ordered By: Matthew Leslie on 02-02-2023 MCH (RBC) [Entitic mass] 29.4 pg 24.7-34.3 [facility] MCHC Auto (RBC) [Mass/Vol]Or dered By: Matthew Leslie on 02-02-2023 MCHC (RBC) [Mass/Vol] 33.6 g/dL 32.0-35.0 [facility] MCV Auto (RBC) [Entitic vol] Ordered By: Matthew Leslie on 02-02-2023 MCV (RBC) [Entitic vol] 87.6 fL 80-100 [facility] Monocyte distribution width [Entitic volume] in Blood by AutomatedOrdered By: Matthew Leslie on 02-02-2023 Monocyte distribution width Auto (Bld) [Entitic vol] 17.83 % 0.00-20.00 [facility] Monocytes Auto (Bld) [#/Vol] Ordered By: Matthew Leslie on 02-02-2023 Monocytes (Bld) [#/Vol] 0.6 10*3/uL 0.0-0.8 [facility] Monocytes/100 WBC Auto (Bld) Ordered By: Matthew Leslie on 02-02-2023 Monocytes/100 WBC (Bld) 7.9 % . [facility] Neutrophils Auto (Bld) [#/Vo l]Ordered By: Matthew Leslie on 02-02-2023 Neutrophils (Bld) [#/Vol] 4.2 10*3/uL 1.8-7.7 [facility] Neutrophils/100 WBC Auto (Bl d)Ordered By: Matthew Leslie on 02-02-2023 Neutrophils/100 WBC (Bld) 54.8 % . [facility] Nitrite Test strip Ql (U)Ord ered By: Matthew Leslie on 02-02-2023 Nitrite Ql (U) Negative Negative [facility] No Panel InformationOrdered By: Matthew Leslie on 02-02-2023 Estimated GFR (CKD-EPI) > 60.0 mL/Min [facility] Creatinine Clearanc e (Chem 76.05 [facility] Nucleated erythrocytes [Pres ence] in Blood by Automated countOrdered By: Matthew Leslie on 02-02-2023 Nucleated RBC Auto Ql (Bld) 0.0 /100{WBC} 0-0.5 [facility] Opiates [Presence] in Urine by Screen methodOrdered By: Matthew Leslie on 02-02-2023 Opiates Screen Ql (U) Negative Negative [facility] Phencyclidine Screen Ql (U)O rdered By: Matthew Leslie on 02-02-2023 Phencyclidine Ql (U) Negative Negative [facility] Platelet mean volume Auto (B ld) [Entitic vol]Ordered By: Matthew Leslie on 02-02-2023 Platelet mean volume (Bld) [Entitic vol] 9.2 fL 6.3-10.7 [facility] Platelets Auto (Bld) [#/Vol] Ordered By: Matthew Leslie on 02-02-2023 Platelets (Bld) [#/Vol] 322 10*3/uL 150-450 [facility] Potassium [Moles/volume] in Serum or PlasmaOrdered By: Matthew Leslie on 02-02-2023 Potassium [Moles/Vol] 3.8 mmol/L 3.5-5.1 [facility] Protein Auto test strip (U) [Mass/Vol]Ordered By: Matthew Leslie on 02-02-2023 Protein (U) [Mass/Vol] 30 mg/dL Negative [facility] Protein [Mass/volume] in Ser um or PlasmaOrdered By: Matthew Leslie on 02-02-2023 Protein [Mass/Vol] 7.8 g/dL 6.4-8.9 [facility] RBC Auto (Bld) [#/Vol]Ordere d By: Matthew Leslie on 02-02-2023 RBC (Bld) [#/Vol] 4.70 10*6/uL 3.60-5.00 [facility] Serum or plasma albumin/glob ulin mass ratioOrdered By: Matthew Leslie on 02-02-2023 Albumin/Globulin [Mass ratio] 1.4 {ratio} [facility] Serum or plasma anion gap de terminationOrdered By: Matthew Leslie on 02-02-2023 Anion gap [Moles/Vol] 9.5 mmol/L 6.0-15.0 [facility] Serum or plasma non-glucuron idated bilirubin measurement (mass/volume)Ordered By: Matthew Leslie on 02-02-2023 Bilirubin.indirect [Mass/Vol] 0.5 mg/dL [facility] Sodium [Moles/volume] in Ser um or PlasmaOrdered By: Matthew Leslie on 02-02-2023 Sodium [Moles/Vol] 141 mmol/L 136-145 [facility] Specific gravity Auto test s trip (U) [Rel density]Ordered By: Matthew Leslie on 02-02-2023 Specific gravity (U) [Rel density] 1.027 1.001-1.030 [facility] Squamous epithelial cells de tection in urine sediment by light microscopyOrdered By: Matthew Leslie on 02-02-2023 Epithelial cells.squamous LM Ql (Urine sed) 3-4 [HPF] 0-2 [facility] Thyroid Stim Hormone w/Rflxo n 02-02-2023 Thyroid Stim Hormone w/Rflx 3.74 u[iU]/mL Normal 0.45-5.33 [facility] Comment on above: Performed By: #### H EPATIC, TSH3 wRFLX, CBC, CMP, [id number], ETOH #### [address] Thyrotropin [Units/volume] i n Serum or PlasmaOrdered By: Matthew Leslie on 02-02-2023 TSH Qn 3.74 m[IU]/L 0.45-5.33 [facility] Urea nitrogen [Mass/volume] in Serum or PlasmaOrdered By: Matthew Leslie on 02-02-2023 Urea nitrogen [Mass/Vol] 11 mg/dL 7-25 [facility] Urine Cultureon 02-02-2023 Bacteria identified Cx Nom (U) No Growth 2 Days PERFORMED BY: [place] [address] PATHOLOGIST MANAGER MACHINE MOISES VELASCO M.D. Normal [facility] Comment on above: Performed By: #### U HCG, ADDONUAPLUS, URDS, CUU #### [facility] [address] Urine bacteria detection by automated methodOrdered By: Matthew Leslie on 02-02-2023 Bacteria Auto Ql (U) 1+ None Seen [facility] Urine clarity by refractomet ry automatedOrdered By: Matthew Leslie on 02-02-2023 Clarity Refractometry automated (U) Cloudy Clear [facility] Urine culture routineOrdered By: Matthew Leslie on 02-02-2023 Bacteria identified Cx Nom (U) No Growth 2 Days [facility] Urine glucose measurement by automated test strip (mass/volume)Ordered By: Matthew Leslie on 02-02-2023 Glucose Auto test strip (U) [Mass/Vol] Normal mg/dL Normal [facility] Urine hemoglobin detection b y automated test stripOrdered By: Matthew Leslie on 02-02-2023 Hemoglobin Auto test strip Ql (U) 3+ Ne gative [facility] Urine leukocyte esterase det ection by automated test stripOrdered By: Matthew Leslie on 02-02-2023 Leukocyte esterase Auto test strip Ql (U) 2+ Negative [facility] Urobilinogen Auto test strip (U) [Mass/Vol]Ordered By: Matthew Leslie on 02-02-2023 Urobilinogen (U) [Mass/Vol] Normal mg/dL Normal [facility] Vitamin D 25 Hydroxy Totalon 02-02-2023 Vitamin D 25 Hydroxy Total 54.2 ng/mL Normal 30-100 [facility] Comment on above: Result Comment: MABLE MIN D STATUS 25(OH)VITAMIN D RANGE (ng/mL) Deficient <20 Insufficient 20 to <30 Sufficient 30 to 100 Reference: Miri MF,Nimisha NC, Luisa MCCRACKEN, et al. Evaluation,treatment, and prevention of vitamin D deficiency; an Endocrine Society clinical practice guideline. JCEM. 2010; 96(7):1911-30. PERFORMED BY: [facility] [address] [place] [address] PATHOLOGIST MANAGER MACHINE MOISES VELASCO M.D. Performed By: #### H EPATIC, TSH3 wRFLX, CBC, CMP, [id number], ETOH #### [facility] [address] [id number] [facility] [[email or web address]] Vitamin D+Metabolites [Mass/ volume] in Serum or PlasmaOrdered By: Matthew Leslie on 02-02-2023 Vitamin D+Metabolites [Mass/Vol] 54.2 ng/mL 30- 100 [facility] Comment on above: VITAMIN D STATUS 25( OH)VITAMIN D RANGE (ng/mL) Deficient <20 Insufficient 20 to <30Sufficient 30 to 100Reference: Miri MF,Nimisha MCLAIN, Luisa MCCRACKEN, et al. Evaluation,treatment, and prevention of vitamin D deficiency; an Endocrine Society clinical practice guideline. JCEM. 2010; 96(7):1911-30. WBC Auto (Bld) [#/Vol]Ordere d By: Matthew Leslie on 02-02-2023 WBC (Bld) [#/Vol] 7.6 10*3/uL 3.8-11.6 [facility] Yeast detection in urine sed iment by light microscopyOrdered By: Matthew Leslie on 02-02-2023 Yeast LM Ql (Urine sed) None seen [HPF] None Se en [facility] pH Auto test strip (U)Ordere d By: Matthew Leslie on 02-02-2023 pH (U) 6.0 [pH] 5.0-9.0 [facility] AMNISUREon 09-16-2022 AMNISURE Positive Abnormal NEGATIVE [facility] Comment on above: Performed By: #### A MNI #### [facility] [address] [place] [address] Dr. Adrianna Caldera CBC AUTO DIFFon 09-16-2022 BASO # 0.1 103/ul Normal 0.0-0.1 [facility] Comment on above: Performed By: #### C BC #### [facility] [address] [place] [address] Dr. Adrianna Caldera Basophils/100 WBC (Bld) 0.4 % Normal 0.2-2.0 [facility] Comment on above: Performed By: #### C BC #### [facility] [address] [place] [address] Dr. Adrianna Caldera EO # 0.0 103/ul Normal 0.0-0.7 [facility] Comment on above: Performed By: #### C BC #### [facility] [address] [place] [address] Dr. Adrianna Caldera Eosinophils/100 WBC (Bld) 0.1 % Critically low 0.9-7. 0 [facility] Comment on above: Performed By: #### C BC #### [facility] [address] [place] [address] Dr. Adrianna Caldera Erythrocyte distribution wid th (RBC) [Ratio] 12.3 % Normal 11.0-15.0 [facility] Comment on above: Performed By: #### C BC #### [facility] [address] [place] [address] Dr. Adrianna Caldera Hematocrit (Bld) [Volume fraction] 38.3 % Normal 3 6.0-48.0 [facility] Comment on above: Performed By: #### C BC #### [facility] [address] [place] [address] Dr. Adrianna Caldera Hemoglobin (Bld) [Mass/Vol] 12.8 g/dL Normal 12.0-16. 0 [facility] Comment on above: Performed By: #### C BC #### [facility] [address] [place] [address] Dr. Adrianna Caldera IG # 0.20 10e3/ul Critically high 0.00-0.03 [facility] Comment on above: Performed By: #### C BC #### [facility] [address] [place] [address] Dr. Adrianna Caldera IG % 1.0 % Critically high 0.0-0.5 [facility] Comment on above: Performed By: #### C BC #### [facility] [address] [place] [address] Dr. Adrianna Caldera LYMPH # 1.5 103/ul Normal 1.2-3.8 [facility] Comment on above: Performed By: #### C BC #### [facility] [address] [address] [address] Adrianna Caldera Lymphocytes/100 WBC (Bld) 7.7 % Critically low 20.5-6 0.0 [facility] Comment on above: Performed By: #### C BC #### [facility] [address] [place] [address] Dr. Adrianna Caldera MANUAL DIFF REQ NO Normal [facility] Comment on above: Performed By: #### C BC #### [facility] [address] [place] [address] Dr. Adrianna Caldera MCH (RBC) [Entitic mass] 28.9 pg Normal 26.7-34.0 [facility] Comment on above: Performed By: #### C BC #### [facility] [address] [place] [address] Dr. Adrianna Caldera MCHC (RBC) [Mass/Vol] 33.4 g/dL Normal 29.9-35.2 [facility] Comment on above: Performed By: #### C BC #### [facility] [address] [place] [address] Dr. Adrianna Caldera MCV (RBC) [Entitic vol] 86.5 fL Normal 81.0-99.0 [facility] Comment on above: Performed By: #### C BC #### [facility] [address] [place] [address] Dr. Adrianna Caldera MONO # 0.3 103/ul Normal 0.3-0.[address] [facility] Comment on above: Performed By: #### C BC #### [facility] [address] [place] [address] Dr. Adrianna Caldera Monocytes/100 WBC (Bld) 1.7 % Normal 1.7-12.0 [facility] Comment on above: Performed By: #### C BC #### [facility] [address] [place] [address] Dr. Adrianna Caldera NEUT # 17.5 103/ul Critically high 1.4-6.5 [facility] Comment on above: Performed By: #### C BC #### [facility] [address] [place] [address] Dr. Adrianna Caldera Neutrophils/100 WBC (Bld) 89.1 % Critically high 43.0- 75.0 [facility] Comment on above: Performed By: #### C BC #### [facility] [address] [place] [address] Dr. Adrianna Caldera Platelet mean volume (Bld) [ Entitic vol] 10.7 fL Normal 9.5-13.5 [facility] Comment on above: Performed By: #### C BC #### [facility] [address] [place] [address] Dr. Adrianna Caldera PLT 356 103/ul Normal 150-450 [facility] Comment on above: Performed By: #### C BC #### [facility] [address] [place] [address] Dr. Adrianna Caldera RBC 4.43 106/ul Normal 4.20-5.40 [facility] Comment on above: Performed By: #### C BC #### [facility] [address] [place] [address] Dr. Adrianna Caldera WBC 19.6 103/ul Critically high 4.0-11.0 [facility] Comment on above: Performed By: #### C BC #### [facility] [address] [place] [address] Dr. Adrianna Caldera UA (CLEAN/CATCH) DRAIN TILE MACHINE OPERATOR/MICRO I F IND.on 09-16-2022 Bilirubin Ql (U) Negative Normal NEGATIVE [facility] Comment on above: Performed By: #### U ACSIND #### [facility] [address] [place] [address] Dr. Adrianna Caldera Clarity (U) CLEAR Normal CLEAR [facility] Comment on above: Performed By: #### U ACSIND #### [facility] [address] [place] [address] Dr. Adrianna Caldera Color (U) LT. YELLOW Normal YELLOW [facility] Comment on above: Performed By: #### U ACSIND #### [facility] [address] [place] [address] Dr. Adrianna Caldera Glucose Ql (U) Negative Normal NEGATIVE [facility] Comment on above: Performed By: #### U ACSIND #### [facility] [address] [address] [address] Adrianna Caldera Hemoglobin Ql (U) Negative Normal NEGATIVE [facility] Comment on above: Performed By: #### U ACSIND #### [facility] [address] [place] [address] Dr. Adrianna Caldera Ketones Ql (U) Negative Normal NEGATIVE [facility] Comment on above: Performed By: #### U ACSIND #### [facility] [address] [place] [address] Dr. Adrianna Caldera LEUKOCYTES Negative Normal NEGATIVE [facility] Comment on above: Performed By: #### U ACSIND #### [facility] [address] [place] [address] Dr. Adrianna Caldera Nitrite Ql (U) Negative Normal NEGATIVE [facility] Comment on above: Performed By: #### U ACSIND #### [facility] [address] [place] [address] Dr. Adrianna Caldera pH (U) 5.5 [pH] Normal 5-[address] [facility] Comment on above: Performed By: #### U ACSIND #### [facility] [address] [place] [address] Dr. Adrianna Caldera SPEC GRAVITY 1.010 Normal 1.005-<=1.025 [facility] Comment on above: Performed By: #### U ACSIND #### [facility] [address] [place] [address] Dr. Adrianna Caldera UA PROTEIN Negative Normal NEGATIVE/ TRACE [facility] Comment on above: Performed By: #### U ACSIND #### [facility] [address] [place] [address] Dr. Adrianna Caldera UR MICRO IND NOT INDICATED Normal [facility] Comment on above: Performed By: #### U ACSIND #### [facility] [address] [place] [address] Dr. Adrianna Caldera Urobilinogen Qn (U) 0.2 {Micheal'U}/dL Normal 0.2 - 1. 0 [facility] Comment on above: Performed By: #### U ACSIND #### [facility] [address] [address] [address] Adrianna Caldera US PREG GROWTHon 09-16-2022 US PREG GROWTH EXAMINATION: US PREG GROWTH HISTORY: Amniotic fluid leaking COMPARISON: Ultrasound anatomy 07/20/2022 FINDINGS: Heart Rate: 150.8 bpm Number: 1.0 Position: Cephalic Amniotic Fluid Volume: 18.2 cm Maximum Vertical Pocket: 5.1 cm BIOMETRY: BPD: 7.6 cm cm; 30 weeks 3 days HC: 26.3 cmcm; 28 weeks 4 days AC: 24.8 cm cm; 29 weeks 0 days FL: 5.6 cm cm; 29 weeks 4 days EFW: 1355.6 grams; 73% FL/AC: 22.6 FL/BPD: 73.9 HC/AC: 1.1 GESTATIONAL AGE: Age by EDC: 28 weeks 2 days MANUEL by EDC: 12/07/2022 Age by US: 29 weeks 3 days MANUEL by US: 11/29/2022 IMPRESSION: 1. Single live intrauterine with growth detailed above. Electronically authenticated by: KAROL SIDDIQUI Date: 2022-09-16 15:19 Normal [facility] UA (CLEAN/CATCH) DRAIN TILE MACHINE OPERATOR/MICRO I F IND.on 09-04-2022 Bilirubin Ql (U) Negative Normal NEGATIVE [facility] Comment on above: Performed By: #### U ACSIND ####[facility] [address] [place], [place] [address]DrAung Caldera Clarity (U) CLEAR Normal CLEAR [facility] Comment on above: Performed By: #### U ACSIND ####[facility] [address] [address]DrAung Caldera Color (U) LT. YELLOW Normal YELLOW [facility] Comment on above: Performed By: #### U ACSIND ####[facility] [address] [address]DrAung Caldera Glucose Ql (U) Negative Normal NEGATIVE [facility] Comment on above: Performed By: #### U ACSIND ####[facility] [address] [address]Dr. Adrianna Caldera Hemoglobin Ql (U) Negative Normal NEGATIVE [facility] Comment on above: Performed By: #### U ACSIND ####[facility] [address] [place], [place] [address]Dr. Adrianna Caldera Ketones Ql (U) Negative Normal NEGATIVE [facility] Comment on above: Performed By: #### U ACSIND ####[facility] [address] [place], [place] [address]Dr. Adrianna Werner LEUKOCYTES Negative Normal NEGATIVE [facility] Comment on above: Performed By: #### U ACSIND ####[facility] [address] [place], [place] [address]Dr. Adrianna Caldera Nitrite Ql (U) Negative Normal NEGATIVE [facility] Comment on above: Performed By: #### U ACSIND ####[facility] [address] [place], [place] [address]Dr. Adrianna Werner pH (U) 7.5 [pH] Normal 5-[address] [facility] Comment on above: Performed By: #### U ACSIND ####[facility] [address] [place], [place] [address]Dr. Adrianna Werner SPEC GRAVITY 1.010 Normal 1.005-<=1.025 [facility] Comment on above: Performed By: #### U ACSIND ####[facility] [address] [place], [place] [address]Dr. Adrianna Caldera UA PROTEIN Negative Normal NEGATIVE/ TRACE [facility] Comment on above: Performed By: #### U ACSIND ####[facility] [address] [place], [place] [address]Dr. Adrianna Caldera UR MICRO IND NOT INDICATED Normal [facility] Comment on above: Performed By: #### U ACSIND ####[facility] [address] [place], [place] [address]Dr. Adrianna Caldera Urobilinogen Qn (U) 0.2 {Micheal'U}/dL Normal 0.2 - 1. 0 [facility] Comment on above: Performed By: #### U ACSIND ####[facility] [address] [address]Dr. Adrianna Caldera GTT 3 HR PREGon 08-30-2022 Glucose [Mass/Vol] 88 mg/dL Normal 74-106 [facility] Comment on above: Performed By: #### G TT3P ####[facility] [address] [address]Dr. Adrianna Caldera Glucose [Mass/Vol] 167 mg/dL Normal [facility] Comment on above: Performed By: #### G TT3P ####[facility] [address] [address]Dr. Adrianna Caldera Glucose [Mass/Vol] 136 mg/dL Normal [facility] Comment on above: Performed By: #### G TT3P ####[facility] [address] [address]Dr. Adrianna Caldera Glucose [Mass/Vol] 144 mg/dL Normal [facility] Comment on above: Performed By: #### G TT3P ####[facility] [address] [address]Dr. Adrianna Caldera US PREG PLACENTAon 3 US PREG PLACENTA EXAMINATION: US PREG PLACENTA HISTORY: Low lying placenta COMPARISON: Ultrasound anatomy 07/20/2022 FINDINGS: PLACENTA: Posterior with lower margin 4.9 cm from os. CERVIX LENGTH: 4.1 cm, closed. HEART RATE: 144 bpm OTHER: None. IMPRESSION: 1. Single live intrauterine 24 weeks 0 days. 2. Posterior placenta which is no longer low-lying. Electronically authenticated by: KAROL SIDDIQUI Date: 2022-08-17 15:46 Normal [facility] CBC with Diffon 08-10-2022 Abs. Basophil 0.04 k/uL Normal 0.00-0.20 [facility] Comment on above: Performed By: #### L IP, CDP, CP #### [facility] [address] [place], [place] [id number] Science Interpreter: Cholo Alicea MD Abs.Imm.Granulocyte 0.10 k/uL Normal 0.00-0.30 [facility] Comment on above: Performed By: #### L IP CDP, CP #### [address] [place], [place] [id number] Science Interpreter: Cholo Alicea MD Abs.Neutrophil (Seg) 9.26 k/uL High 1.50-8.10 [facility] Comment on above: Performed By: #### L IP, CDP, CP #### [address] [place], [place] [id number] Science Interpreter: Cholo Alicea MD Basophils/100 WBC (Bld) 0 % Normal 0-2 [facility] Comment on above: Performed By: #### L IP CDP, CP #### [address] [place], [facility]83 Science Interpreter: Cholo Alicea MD Eosinophils (Bld) [#/Vol] 0.05 10*3/uL Normal 0.00-0.4 4 [facility] Comment on above: Performed By: #### L TATA LOPEZ, CP #### [address] [place] [address] Science Interpreter: Cholo Alicea MD Eosinophils/100 WBC (Bld) 0 % Low 1-4 [facility] Comment on above: Performed By: #### L JESSICA CDP, CP #### [address] [place], [facility]83 Science Interpreter: Cholo Alicea MD Erythrocyte distribution wid th (RBC) [Ratio] 12.5 % Normal 11.8-14.4 [facility] Comment on above: Performed By: #### L JESSICA CDP, CP #### [address] [place] [address] Science Interpreter: Cholo Alicea MD Hematocrit (Bld) [Volume fraction] 35.2 % Low 3 6.3-47.1 [facility] Comment on above: Performed By: #### L IP CDP, CP #### [facility] [address] [place] [address] Dr[place], [place] [address] Science Interpreter: Cholo Alicea MD Hemoglobin (Bld) [Mass/Vol] 11.6 g/dL Low 11.9-15. 1 [facility] Comment on above: Performed By: #### L IP, CDP, CP #### [address] [place], [place] [address] Science Interpreter: Cholo Alicea MD Immature granulocytes/100 WBC (Bld) 1 % High 0 [facility] Comment on above: Performed By: #### L JESSICA CDP, CP #### [address] [place], [facility]83 Science Interpreter: Cholo Alicea MD Lymphocytes (Bld) [#/Vol] 1.99 10*3/uL Normal 1.10-3.7 0 [facility] Comment on above: Performed By: #### L TATA LOPEZ, CP #### [address] [place], [place] [address] Science Interpreter: Cholo Alicea MD Lymphocytes/100 WBC (Bld) 17 % Low 24-43 [facility] Comment on above: Performed By: #### L TATA LOPEZ, CP #### [address] [place], [place] [address] Science Interpreter: Cholo Alicea MD MCH (RBC) [Entitic mass] 30.8 pg Normal 25.2-33.5 [facility] Comment on above: Performed By: #### L JESSICA CDP, CP #### [address] [place], [facility]83 Science Interpreter: Cholo Alicea MD MCHC (RBC) [Mass/Vol] 33.0 g/dL Normal 28.4-34.8 [facility] Comment on above: Performed By: #### L IP, CDP, CP #### [address] [place], [place] [id number] Science Interpreter: Cholo Alicea MD MCV (RBC) [Entitic vol] 93.4 fL Normal 82.6-102.9 [facility] Comment on above: Performed By: #### L IP, CDP, CP #### [address] [place], [facility]83 Science Interpreter: Cholo Alicea MD Monocytes (Bld) [#/Vol] 0.43 10*3/uL Normal 0.10-1.20 [facility] Comment on above: Performed By: #### L IP, CDP, CP #### [address] [place], [facility] Science Interpreter: Cholo Alicea MD Monocytes/100 WBC (Bld) 4 % Normal 3-12 [facility] Comment on above: Performed By: #### L IP, CDP, CP #### [address] [place], [facility] Science Interpreter: Cholo Alicea MD Neutrophil (Seg) 78 % High 36-65 [facility] Comment on above: Performed By: #### L IP, CDP, CP #### [address] [place], [facility] Science Interpreter: Cholo Alicea MD NRBC Automated 0.0 per 100 WBC Normal 0.0 [facility] Comment on above: Performed By: #### L IP, CDP, CP #### [address] [place], [facility] Science Interpreter: Cholo Alicea MD Platelet mean volume (Bld) [ Entitic vol] 10.6 fL Normal 8.1-13.5 [facility] pital Comment on above: Performed By: #### L IP, CDP, CP #### [address] [place] [address] Science Interpreter: Cholo Alicea MD Platelets (Bld) [#/Vol] 333 10*3/uL Normal 138-453 [facility] Comment on above: Performed By: #### L IP, CDP, CP #### [facility] [address] [place] [address] Science Interpreter: Cholo Alicea MD RBC (Bld) [#/Vol] 3.77 10*6/uL Low 3.95-5.11 [facility] Comment on above: Performed By: #### L IP, CDP, CP #### [facility] [address] [place] [address] Science Interpreter: Cholo Alicea MD WBC (Bld) [#/Vol] 11.9 10*3/uL High 3.5-11.3 [facility] Comment on above: Performed By: #### L IP, CDP, CP #### [facility] [address] [place] [address] Science Interpreter: Cholo Alicea MD Glucose Andrae Scr 50gon 2022 Glucose [Mass/Vol] 161 mg/dL High 70-135 [facility] Comment on above: Performed By: #### L IP, CDP, CP #### [facility] [address] [place] [address] Science Interpreter: Cholo Alicea MD Glu Administered via Glucola Normal [facility] Comment on above: Performed By: #### L IP, CDP, CP #### [facility] [address] [place] [address] Science Interpreter: Cholo Alicea MD UA (CLEAN/CATCH) DRAIN TILE MACHINE OPERATOR/MICRO I F IND.on 07-21-2022 Bilirubin Ql (U) Negative Normal NEGATIVE [facility] Comment on above: Performed By: #### U ACSIND ####[facility] B[address] [place], [place] [address]Dr. Adrianna Caldera Clarity (U) CLEAR Normal CLEAR [facility] Comment on above: Performed By: #### U ACSIND ####[facility] [address] [place], [place] [address]Dr. Adrianna Caldera Color (U) LT. YELLOW Normal YELLOW [facility] ospital Comment on above: Performed By: #### U ACSIND ####[facility] F[address] [place], [place] [address]Dr. Jemimabenito Caldera Glucose Ql (U) Negative Normal NEGATIVE [facility] Comment on above: Performed By: #### U ACSIND ####[facility] [address] [place], [place] [address]Dr. Adrianna Caldera Hemoglobin Ql (U) Negative Normal NEGATIVE [facility] Comment on above: Performed By: #### U ACSIND ####[facility] [address] [place], [place] [address]Dr. Adrianna Caldera Ketones Ql (U) Negative Normal NEGATIVE [facility] Comment on above: Performed By: #### U ACSIND ####[facility] Hyfpcdzdu[address] [place], [place] [address]Dr. Adrianna Caldera LEUKOCYTES Negative Normal NEGATIVE [facility] ostal Comment on above: Performed By: #### U ACSIND ####[facility] F[address] [place], [place] [address]Dr. Adrianna Caldera Nitrite Ql (U) Negative Normal NEGATIVE [facility] Comment on above: Performed By: #### U ACSIND ####[facility] Dxvt[address] [place], [place] [address]Dr. Adrianna Caldera pH (U) 7.0 [pH] Normal 5-9 [facility] Comment on above: Performed By: #### U ACSIND ####[facility] Daekfs[address] [place], [place] [address]Dr. Adrianna Caldera SPEC GRAVITY 1.010 Normal 1.005-<=1.025 [facility] Comment on above: Performed By: #### U ACSIND ####[facility] [address] [place], [place] [id number]. Adrianna Caldera UA PROTEIN Negative Normal NEGATIVE/ TRACE [facility] Comment on above: Performed By: #### U ACSIND ####[facility] [address] [place] [address]Dr. Adrianna Caldera UR MICRO IND NOT INDICATED Normal [facility] Comment on above: Performed By: #### U ACSIND ####[facility] [address] [place] [id number]. Adrianna Caldera Urobilinogen Qn (U) 0.2 {Micheal'U}/dL Normal 0.2 - 1. 0 [facility] Comment on above: Performed By: #### U ACSIND ####[facility] [address] [place] [address]Dr. Adrianna Caldera US PREG ANATOMY SINGLEon US PREG ANATOMY SINGLE EXAMINATION: US P REG ANATOMY SINGLE HISTORY: Patient currently COMPARISON: No relevant comparison available. TECHNIQUE: Transabdominal sonographic examination was performed for obstetrical and evaluation. FINDINGS: Number: 1 Heart Rate: 145.2 bpm H.B. /min Amniotic Fluid Volume: Subjectively normal Placental Location: POSTERIOR with lower margin 1.5 cm from os. Cervix Length: 4.8 cm, closed. ANATOMY: Normal Structures -cerebellum, choroid plexus, cisterna magna, lateral cerebral ventricles, orbits, midline falx, hard palate, four-chamber heart, RVOT, LVOT, stomach, kidneys, bladder, umbilical cord insertion into abdomen, three-vessel cord, cervical spine, thoracic spine, lumbar spine, sacral spine, right upper extremity, left upper extremity, right lower extremity, left lower extremity. SUBOPTIMALLY SEEN: None ABNORMALITIES: None BIOMETRY: BPD: 4.6 cm 20 weeks 0 days HC: 17.4 cm 20 weeks 0 days AC: 16.5 cm 21 weeks 4 days FL: 3.4 cm 20 weeks 5 days EFW:391.3 grams; 92% FL/AC: 20.5 FL/BPD: 73.0 HC/AC: 1.1 GESTATIONAL AGE: Age by EDC: 20 weeks 0 days MANUEL by EDC: 12/07/2022 Age by current US: 20 weeks 4 days MANUEL by current US: 12/03/2022 IMPRESSION: 1. Single live intrauterine with growth detailed above. 2. Low-lying posterior placenta. Electronically authenticated by: KAROL SIDDIQUI Date: 2022-07-21 16:41 Normal [facility] l PAP ACOG PANEL 2: 21 to 29on 07-12-2022 . . Normal [facility] ospital Comment on above: Performed By: #### [id number] ####[facility] [address] [place], [place] [address]DrAung Caldera Age Gdln ACOG Testing - Normal [facility] Comment on above: Performed By: #### 4 [id number] ####[facility] X[address] [place], [place] [address]DrAung Caldera DIAGNOSIS: Comment Normal [facility] Comment on above: Result Comment: NEGA TIVE FOR INTRAEPITHELIAL LESION OR MALIGNANCY. Performed By: #### 4 [id number] ####[place] [address]DrAung Caldera Methodology: Comment Normal [facility] Comment on above: Result Comment: This liquid based ThinPrep(R) pap test was screened with the use of an image guided system. Performed By: #### 4 [id number] ####[place] [address]DrAung Caldera Note: Comment Normal [facility]ital Comment on above: Result Comment: The Pap smear is a screening test designed to aid in the detection of premalignant and malignant conditions of the uterine cervix. It is not a diagnostic procedure and should not be used as the sole means of detecting cervical cancer. Both false-positive and false-negative reports do occur. . Performed By: #### 4 [id number] ####[facility] [address] [place], [place] [address]DrAung Caldera Performed by: Comment Normal The [facility] Comment on above: Result Comment: [place] Yin, Motor Vehicle Technician (ASCP) Performed By: #### 4 [id number] ####[facility] [address] [place], [place] [address]DrAung Caldera Reflex Criteria: Comment Normal [facility] Comment on above: Result Comment: The HPV DNA reflex criteria were not met with this specimen result therefore, no HPV testing was performed. . Performed By: #### 4 [id number] ####[facility] [address] [place] [address]Dr. Adrianna Caldera Specimen adequacy: Comment Normal The [facility] Comment on above: Result Comment: Sati sfactory for evaluation. No endocervical component is identified. Performed By: #### 4 [id number] ####[facility] [address] [place] [address]Dr. Adrianna Caldera CHLAMYDIA/GONOCOCCUS ALEKSANDER (SW AB/URINE/PAPon 07-07-2022 Chlamydia trachomatis, ALEKSANDER Negative Normal Negative [facility] Comment on above: Performed By: #### C T/NGNA ####[facility] A[address] [place], [place] [address]Dr. Adrianna Caldera Neisseria gonorrhoeae, ALEKSANDER Negative Normal Negative [facility] Comment on above: Performed By: #### C T/NGNA ####[facility] [address] [place] [address]Dr. Adrianna Caldera VAGINITIS/VAGINOSIS DNA PROB Scott 07-07-2022 Sherley species Negative Normal Negative [facility] Comment on above: Performed By: #### U ACSIND #### [facility] [address] [place] [address] Dr. Adrianna Caldera Gardnerella vaginalis Negative Normal Negative [facility] Comment on above: Performed By: #### U ACSIND #### [facility] [address] [address] [address] Adrianna Caldera Trichomonas vaginalis Negative Normal Negative [facility] Comment on above: Performed By: #### U ACSIND #### [facility] [address] [address] [address] Ardianna Caldera Cult,Urineon 07-02-2022 Cult,Urine Specimen Description .CLEAN CATCH URINE Culture NO SIGNIFICANT GROWTH Report Status FINAL 07/02/2022 Normal [facility] Comment on above: Performed By: #### L IP, CDP, CP #### [facility] [address] [place] [address] Science Interpreter: Cholo Alicea MD ABO/RHon 06-30-2022 ABO/Rh Negative [facility] ABO/Rh(D)on 06-30-2022 ABO/Rh(D) Negative Normal [facility] ospital Comment on above: Performed By: #### L TATA LOPEZ, CP #### [facility] [address] [place] [address] Science Interpreter: Cholo Alicea MD CBC with Auto Differentialon 06-30-2022 Absolute Eos # 0.06 [place] [facility] Absolute Immature Granulocyte 0.07 [facility] Absolute Lymph # 2.91 [facility] Absolute [place] # 0.66 [facility] Basophils (Bld) [#/Vol] 0.04 10*3/uL [facility] Basophils/100 WBC (Bld) 0 % 0 - 2 % B ON [facility] Eosinophils/100 WBC (Bld) 1 % 1 - 4 % [facility] Hematocrit (Bld) [Volume fraction] 35.2 % Low 36.3 - 47.1 % [facility] Hemoglobin (Bld) [Mass/Vol] 11.9 g/dL 11.9 - 1 5.1 g/dL [facility] Immature granulocytes/100 WB C (Bld) 1 % High 0 [facility] Interpretation and review of laboratory results Abnormal [facility] Lymphocytes/100 WBC (Bld) 24 % 24 - 43 % [facility] MCH (RBC) [Entitic mass] 30.7 pg 25.2 - 33.5 pg [facility] MCHC (RBC) [Mass/Vol] 33.8 g/dL 28.4 - 34.8 g/ dL [facility] MCV (RBC) [Entitic vol] 91.0 fL 82.6 - 102.9 fL [facility] Monocytes/100 WBC (Bld) 5 % 3 - 12 % B ON [facility] NRBC Automated 0.0 0.0 per 100 WBC [facility] Platelet distribution width (Bld) [Ratio] 12.2 % 11.8 - 14.4 % [facility] Platelet mean volume (Bld) [Entitic vol] 10.5 fL 8.1 - 13.5 fL [facility] Platelets (Bld) [#/Vol] 301 10*3/uL [facility] RBC (Bld) [#/Vol] 3.87 10*6/uL Low 3.95 - 5.11 m/uL [facility] Segmented neutrophils/100 WB C (Bld) 69 % High 36 - 65 % [facility] Segs Absolute 8.40 High [facility] WBC (Bld) [#/Vol] 12.1 10*3/uL High [facility] CBC with Diffon 06-30-2022 Abs. Basophil 0.04 k/uL Normal 0.00-0.20 [facility] Comment on above: Performed By: #### L TATA LOPEZ, CP #### [facility] [address] [place] [address] [place] [address] Science Interpreter: Cholo Alicea MD Abs.Imm.Granulocyte 0.07 k/uL Normal 0.00-0.30 [facility] Comment on above: Performed By: #### L TATA LOPEZ, CP #### [address] [place], [facility] Science Interpreter: Cholo Alicea MD Abs.Neutrophil (Seg) 8.40 k/uL High 1.50-8.10 [facility] Comment on above: Performed By: #### L TATA LOPEZ, CP #### [address] [place] [address] Science Interpreter: Cholo Alicea MD Basophils/100 WBC (Bld) 0 % Normal 0-2 [facility] Comment on above: Performed By: #### L TATA LOPEZ, CP #### [facility] [address] [place], [place] [id number] Science Interpreter: Cholo Alicea MD Eosinophils (Bld) [#/Vol] 0.06 10*3/uL Normal 0.00-0.4 4 [facility] Comment on above: Performed By: #### L IP, CDP, CP #### [address] [place], [facility] Science Interpreter: Cholo Alicea MD Eosinophils/100 WBC (Bld) 1 % Normal 1-4 [facility] Comment on above: Performed By: #### L IP, CDP, CP #### [address] [place], [facility] Science Interpreter: Cholo Alicea MD Erythrocyte distribution wid th (RBC) [Ratio] 12.2 % Normal 11.8-14.4 [facility] Comment on above: Performed By: #### L IP, CDP, CP #### [address] [place], [facility] Science Interpreter: Cholo Alicea MD Hematocrit (Bld) [Volume fraction] 35.2 % Low 3 6.3-47.1 [facility] Comment on above: Performed By: #### L IP, CDP, CP #### [address] [place], [facility] Science Interpreter: Cholo Alicea MD Hemoglobin (Bld) [Mass/Vol] 11.9 g/dL Normal 11.9-15. 1 [facility] Comment on above: Performed By: #### L IP, CDP, CP #### [address] [place] [id number] Science Interpreter: Cholo Alicea MD Immature granulocytes/100 WBC (Bld) 1 % High 0 [facility] Comment on above: Performed By: #### L IP, CDP, CP #### [address] [place] [facility] Science Interpreter: Cholo Alicea MD Lymphocytes (Bld) [#/Vol] 2.91 10*3/uL Normal 1.10-3.7 0 [facility] Comment on above: Performed By: #### L IP, CDP, CP #### [facility] [address] [place] [id number] Science Interpreter: Cholo Alicea MD Lymphocytes/100 WBC (Bld) 24 % Normal 24-43 [facility] Comment on above: Performed By: #### L IP, CDP, CP #### [address] [place] [address] Science Interpreter: Cholo Alicea MD MCH (RBC) [Entitic mass] 30.7 pg Normal 25.2-33.5 [facility] Comment on above: Performed By: #### L IP, CDP, CP #### [address] [place] [id number] Science Interpreter: Cholo Alicea MD MCHC (RBC) [Mass/Vol] 33.8 g/dL Normal 28.4-34.8 [facility] Comment on above: Performed By: #### L IP, CDP, CP #### [address] [place] [id number] Science Interpreter: Cholo Alicea MD MCV (RBC) [Entitic vol] 91.0 fL Normal 82.6-102.9 [facility] Comment on above: Performed By: #### L IP, CDP, CP #### [address] [place] [id number] Science Interpreter: Cholo Alicea MD Monocytes (Bld) [#/Vol] 0.66 10*3/uL Normal 0.10-1.20 [facility] Comment on above: Performed By: #### L IP, CDP, CP #### [address] [place] [id number] Science Interpreter: Cholo Alicea MD Monocytes/100 WBC (Bld) 5 % Normal 3-12 [facility] Comment on above: Performed By: #### L IP, CDP, CP #### [facility] [address] [place], [place] 9000783 Science Interpreter: Cholo Alicea MD Neutrophil (Seg) 69 % High 36-65 [facility] Comment on above: Performed By: #### L IP, CDP, CP #### [facility] [address] [place], [place] [id number] Science Interpreter: Cholo Alicea MD NRBC Automated 0.0 per 100 WBC Normal 0.0 [facility] Comment on above: Performed By: #### L IP, CDP, CP #### [address] [place], [facility] Science Interpreter: Cholo Alicea MD Platelet mean volume (Bld) [ Entitic vol] 10.5 fL Normal 8.1-13.5 [facility] Comment on above: Performed By: #### L IP, CDP, CP #### [address] [place], [place] [address]83 Science Interpreter: Cholo Alicea MD Platelets (Bld) [#/Vol] 301 10*3/uL Normal 138-453 [facility] Comment on above: Performed By: #### L IP, CDP, CP #### [facility] [address] [place] [address] Dr[place], [place] [id number] Science Interpreter: Cholo Alicea MD RBC (Bld) [#/Vol] 3.87 10*6/uL Low 3.95-5.11 [facility] Comment on above: Performed By: #### L IP, CDP, CP #### [address] [place], [place] 058[address]83 Science Interpreter: Cholo Alicea MD WBC (Bld) [#/Vol] 12.1 10*3/uL High 3.5-11.3 [facility] Comment on above: Performed By: #### L IP, CDP, CP #### [facility] [address] [place] [address] Science Interpreter: Cholo Alicea MD [facility] Albumin [Mass/Vol] 3.6 g/dL 3.5 - 5.2 g/dL [facility] Albumin/Globulin [Mass ratio] 1.1 {ratio} 1.0 - 2.5 [facility] ALP [Catalytic activity/Vol] 74 U/L 35 - 104 U/L [facility] ALT [Catalytic activity/Vol] 9 U/L 5 - 33 U/L [facility] Anion gap [Moles/Vol] 13 mmol/L 9 - 17 mmol/L [facility] AST [Catalytic activity/Vol] 18 U/L NINF - 32 U/L [facility] Bilirubin [Mass/Vol] mg/dL Low 0.3 - 1.2 mg/dL [facility] Calcium [Mass/Vol] 9.5 mg/dL 8.6 - 10.4 mg/dL [facility] Chloride [Moles/Vol] 101 mmol/L 98 - 107 mmol/L [facility] CO2 [Moles/Vol] 21 mmol/L 20 - 31 mmol/L [facility] Creatinine [Mass/Vol] 0.55 mg/dL 0.50 - 0.90 mg /dL [facility] GFR/1.73 sq M.predicted MDRD (S/P/Bld) [Vol rate/Area] - PINF [facility] Comment on above: These results are not intended for use in patients <18 years of age. eGFR results are calculated without a race factor using the 2020 CKD-EPI equation. Careful clinical correlation is recommended, particularly when comparing to results calculated using previous equations. The CKD-EPI equation is less accurate in patients with extremes of muscle mass, extra-renal metabolism of creatine, excessive creatine ingestion, or following therapy that affects renal tubular secretion. Glucose [Mass/Vol] 84 mg/dL 70 - 99 mg/dL [facility] Interpretation and review of laboratory results Abnormal [facility] Potassium [Moles/Vol] 3.8 mmol/L 3.7 - 5.3 mmol /L [facility] Protein [Mass/Vol] 6.9 g/dL 6.4 - 8.3 g/dL [facility] Sodium [Moles/Vol] 135 mmol/L 135 - 144 mmol/L [facility] Urea nitrogen [Mass/Vol] 8 mg/dL 6 - 20 mg/d L [facility] Urea nitrogen/Creatinine (Bl d) [Mass ratio] 15 9 - 20 [facility] Comp Metabolic Profon 2022 Bilirubin [Mass/Vol] mg/dL Low 0.3-1.2 [facility] Comment on above: Performed By: #### L TATA LOPEZ, CP #### [facility] [address] [place] [address] [place] [address] Science Interpreter: Cholo Alicea MD Albumin [Mass/Vol] 3.6 g/dL Normal 3.5-5.2 [facility] Comment on above: Performed By: #### L TATA LOPEZ, CP #### [facility] [address] [place], [place] 6753783 Science Interpreter: Cholo Alicea MD Albumin/Glob Ratio 1.1 Normal 1.0-2.5 [facility] Comment on above: Performed By: #### L IP CDP, CP #### [facility] [address] [place], [place] 3327983 Science Interpreter: Cholo Alicea MD Alkaline Phos 74 U/L Normal 35-104 [facility] Comment on above: Performed By: #### L IP, CDP, CP #### [facility] [address] [place], [place] [id number] Science Interpreter: Cholo Alicea MD ALT [Catalytic activity/Vol] 9 U/L Normal 5-33 [facility] Comment on above: Performed By: #### L IP, CDP, CP #### [facility] [address] [place], [place] [id number] Science Interpreter: Cholo Alicea MD Anion gap [Moles/Vol] 13 mmol/L Normal 9-17 [facility] Comment on above: Performed By: #### L IP, CDP, CP #### [facility] [address] [place], [place] 4408883 Science Interpreter: Cholo Alicea MD AST [Catalytic activity/Vol] 18 U/L Normal <32 [facility] Comment on above: Performed By: #### L IP, CDP, CP #### [address] [place], [place] [id number] Science Interpreter: Cholo Alicea MD BUN/CRE Ratio 15 Normal 9-20 [facility] Comment on above: Performed By: #### L IP, CDP, CP #### [address] [place], [place] 9073083 Science Interpreter: Cholo Alicea MD Calcium [Mass/Vol] 9.5 mg/dL Normal 8.6-10.4 [facility] Comment on above: Performed By: #### L IP, CDP, CP #### [address] [place], [place] [address]99[address]3 Science Interpreter: Cholo Alicea MD Chloride [Moles/Vol] 101 mmol/L Normal 98-107 [facility] Comment on above: Performed By: #### L IP, CDP, CP #### [facility] [address] [place] [address] Dr[place], [place] [id number] Science Interpreter: Cholo Alicea MD CO2 [Moles/Vol] 21 mmol/L Normal 20-31 [facility] Comment on above: Performed By: #### L IP, CDP, CP #### [facility] [address] [place] [address] Science Interpreter: Cholo Alicea MD Creatinine [Mass/Vol] 0.55 mg/dL Normal 0.50-0.90 [facility] Comment on above: Performed By: #### L IP, CDP, CP #### [address] [place] [address] Science Interpreter: Cholo Alicea MD GFR/1.73 sq M.predicted vilma g non-blacks MDRD (S/P/Bld) [Vol rate/Area] mL/min/{1.73_m2} Normal >60 [facility] Comment on above: Result Comment: These results are not intended for use in patients <18 years of age. eGFR results are calculated without a race factor using the 2020 CKD-EPI equation. Careful clinical correlation is recommended, particularly when comparing to results calculated using previous equations. The CKD-EPI equation is less accurate in patients with extremes of muscle mass, extra-renal metabolism of creatine, excessive creatine ingestion, or following therapy that affects renal tubular secretion. Performed By: #### L IP, CDP, CP #### [address] [place] [address] Science Interpreter: Cholo Alicea MD Glucose [Mass/Vol] 84 mg/dL Normal 70-99 [facility] Comment on above: Performed By: #### L IP CDP, CP #### [address] [place] [address] Science Interpreter: Cholo Alicea MD Potassium [Moles/Vol] 3.8 mmol/L Normal 3.7-5.3 [facility] Comment on above: Performed By: #### L IP, CDP, CP #### [address] [place] [address] Science Interpreter: Cholo Alicea MD Protein [Mass/Vol] 6.9 g/dL Normal 6.4-8.3 [facility] Comment on above: Performed By: #### L IP, CDP, CP #### [facility] [address] [place] [address] [place] [address] Science Interpreter: Cholo Alicea MD Sodium [Moles/Vol] 135 mmol/L Normal 135-144 [facility] Comment on above: Performed By: #### L TATA LOPEZ, CP #### [facility] [address] [place] [address] [place] [place], [place] [id number] Science Interpreter: Cholo Alicea MD Urea nitrogen [Mass/Vol] 8 mg/dL Normal 6-20 [facility] Comment on above: Performed By: #### L TATA LOPEZ, CP #### [address] [place] [address] Science Interpreter: Cholo Alicea MD Lipaseon 8 Lipase [Catalytic activity/Vol] 30 U/L Normal 13-6 0 [facility] Comment on above: Performed By: #### L TATA LOPEZ, CP #### [facility] [address] [place] [address] Dr. [place], [facility] Science Interpreter: Cholo Alicea MD Lipase [Catalytic activity/Vol] 30 U/L 13 - 60 U/L [facility] Microscopic Urinalysison Bacteria, UA 2+ Abnormal None [facility] Epithelial Cells UA 0 TO 2 [facility] Interpretation and review of laboratory results Abnormal [facility] Mucus, UA 3+ Abnormal None [facility] RBC clumps Auto (Urine sed) [#/Area] 0 TO 2 [facility] WBC, UA 0 TO 2 [facility] PTon 06-30-2022 INR Coag (PPP) [Relative time] 1.0 {INR} Normal [facility] Comment on above: Result Comment: Therapeutic Range: Moderate Anticoagulant Intensity: INR = 2.0-3.0 High Anticoagulant Intensity: INR = 2.5-3.5 Performed By: #### L TATA LOPEZ, CP #### [address] [place], [place] [id number] Science Interpreter: Cholo Alicea MD PT Coag (PPP) [Time] 13.3 s Normal 11.5-14.2 [facility] Comment on above: Performed By: #### L IP, CDP, CP #### [facility] [address] [place], [place] [id number] Science Interpreter: Cholo Alicea MD Protime-INRon 06-30-2022 INR Coag (PPP) [Relative time] 1.0 {INR} [facility] Comment on above: Therapeutic Range: Moderate Anticoagulant Intensity: INR = 2.0-3.0 High Anticoagulant Intensity: INR = 2.5-3.5 PT Coag (PPP) [Time] 13.3 s [facility] UA w/Reflex Cultureon 2022 Bilirubin, SemiQt,Ur Negative Normal NEG [facility] Comment on above: Performed By: #### U MICAO, UAX #### [facility] [address] [place] [address] Dr. [place], [place] [id number] Science Interpreter: Cholo Alicea MD Blood, Urine Negative Normal NEG [facility] Comment on above: Performed By: #### U MICAO, UAX #### [facility] [address] [place] [address] Dr. [place], [place] [id number] Science Interpreter: Cholo Alicea MD Clarity (U) Clear Normal CLEAR [facility] Comment on above: Performed By: #### U MICAO, UAX #### [facility] [address] [place], [place] 8531583 Science Interpreter: Cholo Alicea MD Color (U) Yellow Normal YEL [facility] Comment on above: Performed By: #### U MICAO, UAX #### [facility] [address] [place], [place] [id number] Science Interpreter: Cholo Alicea MD Glucose Ql (U) Negative Normal NEG [facility] Comment on above: Performed By: #### U MICAO, UAX #### [facility] [address] [place] [address] Dr. [place], [place] [id number] Science Interpreter: Cholo Alicea MD Ketones Ql (U) Negative Normal NEG [facility] [place] [facility] Comment on above: Performed By: #### U MICAO, UAX #### [facility] [address] [place] [address] Dr. [place], [place] [id number] Science Interpreter: Cholo Alicea MD Leukocyte esterase Test strip Ql (U) Negative Normal NEG [facility] Comment on above: Performed By: #### U MICAO, UAX #### [address] [place], [place] [id number] Science Interpreter: Cholo Alicea MD Nitrite,Ur Negative Normal NEG [facility] Comment on above: Performed By: #### U MICAO, UAX #### [facility] [address] [place] [address] Dr. [place], [place] [id number] Science Interpreter: Cholo Alicea MD PH,Ur 6.0 Normal 5.0-9.[address] [facility] Comment on above: Performed By: #### U MICAO, UAX #### [address] [place] [address] Science Interpreter: Cholo Alicea MD Protein Ql (U) Negative Normal NEG [facility] Comment on above: Performed By: #### U MICAO, UAX #### [facility] [address] [place] [address] Dr. [place], [place] 9638083 Science Interpreter: Cholo Alicea MD Spec. [place],Ur 1.025 High 1.010-1.020 [facility] [place] Comment on above: Performed By: #### U MICAO, UAX #### [facility] [address] [place] [address] Dr. [place], [place] [id number] Science Interpreter: Cholo Alicea MD Urobilinogen,Ur Normal Normal NORM [facility] Comment on above: Performed By: #### U DAHLIAO, UAX #### [facility] [address] [place] [address] Science Interpreter: Cholo Alicea MD Urinalysis with Reflex to Cu ltureon 06-30-2022 Bilirubin Urine Negative NEGATIVE [facility] Color, UA Yellow Yellow [facility] Glucose Auto test strip (U) [Mass/Vol] Negative NEGATIVE [facility] Interpretation and review of laboratory results Abnormal [facility] Ketones (U) [Mass/Vol] Negative NEGATIVE [facility] Leukocyte esterase Auto test strip Ql (U) Negative NEGATIVE [facility] Nitrite Auto test strip Ql (U) Negative NEGAT [facility] Protein (U) [Mass/Vol] 6.0 mg/dL 5.0 - 9.0 [facility] Protein (U) [Mass/Vol] Negative NEGATIVE [facility] Specific [place], UA 1.025 High 1.010 - 1.020 B ON [facility] Turbidity UA Clear Clear [facility] Urine Hgb Negative NEGATIVE [facility] Urobilinogen, Urine Normal Normal [facility] Urinalysis,Microon 3 Bacteria 2+ Abnormal NONE [facility] Comment on above: Performed By: #### U LILIAM UAX #### [facility] [address] [place] [address] [place] [address] Science Interpreter: Cholo Alicea MD Epithelial cells LM Ql (Urine sed) 0 TO 2 Normal 0 -25 [facility] Comment on above: Performed By: #### U LILIAM UAX #### [facility] [address] [place] [address] Science Interpreter: Cholo Alicea MD Mucus Strands 3+ Abnormal NONE [facility] Comment on above: Performed By: #### U LILIAM UAX #### [facility] [address] [place] [address] Science Interpreter: Cholo Alicea MD Urine RBC's 0 TO 2 Normal 0-2 [facility] Comment on above: Performed By: #### U MICAO, UAX #### [facility] [address] [place] [address] Science Interpreter: Cholo Alicea MD Urine WBC's 0 TO 2 Normal 0-5 [facility] Comment on above: Performed By: #### U MICAO, UAX #### [facility] [address] [place] [address] Science Interpreter: Cholo Alicea MD No Panel Informationon 06-17 Body mass index (BMI) [Percentile] Per age and sex 0.1 {percentile} Invalid Interpretation Code [email or web address] [id number] Per age and sex 0.1 {percentile} Invalid Interpretation Code [email or web address] HEP B SURFACE ANTIGEN SCREEN on 06-08-2022 HBsAg Screen Negative Normal Negative [facility] Comment on above: Performed By: #### U ACSIND #### [facility] [address] [place] [address] Dr. Adrianna Caldera HEPATITIS C VIRUS AB W/ REFL EX QUANTon 06-08-2022 HCV AB <0.1 Normal 0.0-0.9 [facility] Comment on above: Performed By: #### U ACSIND #### [facility] [address] [address] [address] Adrianna Caldera Interpretation: Comment Normal [facility] Comment on above: Result Comment: Nega tive Not infected with HCV, unless recent infection is suspected or other evidence exists to indicate HCV infection. Performed By: #### U ACSIND #### [facility] [address] [address] [address] Adrianna Caldera HIV 1 AND 2 WITH REFLEXon HIV Screen 4th Generation wRfx Non-Reactive Normal Non Reactive [facility] Comment on above: Result Comment: HIV Negative HIV-1/HIV-2 antibodies and HIV-1 p24 antigen were NOT detected. There is no laboratory evidence of HIV infection. Performed By: #### U ACSIND #### [facility] [address] [address] [address] Adrianna Caldera RPR QUANTon 06-08-2022 Rapid Plasma Reagin, Quant Non-Reactive Normal NonRea< 1:1 [facility] Comment on above: Result Comment: Plea se Note: This test does not meet current guidelines for screening and diagnosis of syphilis. This test is intended for following treatment response in patients being treated for syphilis infection. To screen for syphilis infection, a reflex cascade that includes both RPR and a treponema-specific assay should be utilized, such as Treponema pallidum (Syphilis) Screening [place] (466882) or Rapid Plasma Reagin (RPR) Test With Reflex to Quantitative RPR and Confirmatory Treponema pallidum Antibodies (861759). Performed By: #### U ACSIND #### [facility] [address] [place] [address] Dr. Adrianna Caldera RUBELLA AB IGGon 06-08-2022 Rubella Antibodies, IgG 4.69 index Normal Immune >0.99 [facility] Comment on above: Result Comment: Non- immune <0.90 Equivocal 0.90 - 0.99 Immune >0.99 Performed By: #### R UBIGG ####[facility] [address] [address]Dr[address] Adrianna Caldera CBC AUTO DIFFon 06-05-2022 BASO # 0.0 103/ul Normal 0.0-0.1 [facility] Comment on above: Performed By: #### C BC #### [facility] [address] [address] [address] Adrianna Caldera Basophils/100 WBC (Bld) 0.3 % Normal 0.2-2.0 [facility] Comment on above: Performed By: #### C BC #### [facility] [address] [place] [address] Dr. Adrianna Caldera EO # 0.1 103/ul Normal 0.0-0.7 [facility] Comment on above: Performed By: #### C BC #### [facility] [address] [place] [address] Dr. Adrianna Caldera Eosinophils/100 WBC (Bld) 0.6 % Critically low 0.9-7. 0 [facility] Comment on above: Performed By: #### C BC #### [facility] [address] [place] [address] Dr. Adrianna Caldera Erythrocyte distribution wid th (RBC) [Ratio] 11.7 % Normal 11.0-15.[address] [facility]pa Comment on above: Performed By: #### C BC #### [facility] [address] [place] [address] Dr. Adrianna Caldera Hematocrit (Bld) [Volume fraction] 33.8 % Critically low 36.0-48.0 [facility] Comment on above: Performed By: #### C BC #### [facility] [address] [place] [address] Dr. Adrianna Caldera Hemoglobin (Bld) [Mass/Vol] 12.6 g/dL Normal 12.0-16. 0 [facility] Comment on above: Performed By: #### C BC #### [facility] [address] [place] [address] Dr. Adrianna Caldera IG # 0.05 10e3/ul Critically high 0.00-0.03 [facility] Comment on above: Performed By: #### C BC #### [facility] [address] [place] [address] Dr. Adrianna Caldera IG % 0.4 % Normal 0.0-0.5 [facility] Comment on above: Performed By: #### C BC #### [facility] [address] [place] [address] Dr. Adrianna Caldera LYMPH # 2.4 103/ul Normal 1.2-3.8 [facility] Comment on above: Performed By: #### C BC #### [facility] [address] [place] [address] Dr. Adrianna Caldera Lymphocytes/100 WBC (Bld) 21.1 % Normal 20.5-60.0 [facility] Comment on above: Performed By: #### C BC #### [facility] [address] [place] [address] Dr. Adrianna Caldera MANUAL DIFF REQ NO Normal [facility] Comment on above: Performed By: #### C BC #### [facility] [address] [place] [address] Dr. Adrianna Caldera MCH (RBC) [Entitic mass] 30.3 pg Normal 26.7-34.0 [facility] Comment on above: Performed By: #### C BC #### [facility] [address] [place] [address] Dr. Adrianna Caldera MCHC (RBC) [Mass/Vol] 37.3 g/dL Critically high 29.9-35.2 [facility] Comment on above: Performed By: #### C BC #### [facility] [address] [place] [address] Dr. Adrianna Caldera MCV (RBC) [Entitic vol] 81.3 fL Normal 81.0-99.0 [facility] Comment on above: Performed By: #### C BC #### [facility] [address] [place] [address] Dr. Adrianna Caldera MONO # 0.6 103/ul Normal 0.3-0.8 [facility] Comment on above: Performed By: #### C BC #### [facility] [address] [place] [address] Dr. Adrianna Caldera Monocytes/100 WBC (Bld) 5.4 % Normal 1.7-12.0 [facility] Comment on above: Performed By: #### C BC #### [facility] [address] [place] [address] Dr. Adrianna Caldera NEUT # 8.3 103/ul Critically high 1.4-6.5 [facility] Comment on above: Performed By: #### C BC #### [facility] [address] [place] [address] Dr. Adrianna Caldera Neutrophils/100 WBC (Bld) 72.2 % Normal 43.0-75.0 [facility] Comment on above: Performed By: #### C BC #### [facility] [address] [address] [address] Adrianna Caldera Platelet mean volume (Bld) [ Entitic vol] 10.6 fL Normal 9.5-13.5 [facility] Comment on above: Performed By: #### C BC #### [facility] [address] [address] [address] Adrianna Caldera PLT 253 103/ul Normal 150-450 [facility] Comment on above: Performed By: #### C BC #### [facility] [id number] Adrianna Caldera RBC 4.16 106/ul Critically low 4.20-5.40 [facility] Comment on above: Performed By: #### C BC #### [facility] [address] [address] [address] Adrianna Caldera WBC 11.6 103/ul Critically high 4.0-11.0 [facility] Comment on above: Performed By: #### C BC #### [facility] [id number] Adrianna Caldera CULTURE URINEon 06-05-2022 CULTURE URINE Culture Observations : LIGHT GROWTH OF MIXED GENITAL JIGAR. NO POTENTIAL PATHOGENS SEEN. Normal [facility] Comment on above: Performed By: #### U RCX ####[facility] [id number] [id number]. Adrianna Caldera GLYCOHEMOGLOBIN A1Con 2022 ADA RECOMMENDATION SEE BELOW Normal [facility] Comment on above: Result Comment: ADA RECOMMENDED LIMIT 4.0 - 6.0 ADA THERAPEUTIC TARGET < 7.0 ACTION SUGGESTED > 7.0 Performed By: #### P REGQNT #### [facility] [id number] Adrianna Caldera Glucose [Mass/Vol] 105 mg/dL Normal [facility] Comment on above: Performed By: #### P REGQNT #### [facility] [address] [place], [place] [address] Dr. Adrianna Caldera HbA1c (Bld) [Mass fraction] 5.3 % Normal 4.5-6.2 [facility] Comment on above: Performed By: #### P REGQNT #### [facility] [address] [place], [place] [address] Dr. Adrianna Caldera TYPE AND SCREENon 06-05-2022 TYPE AND SCREEN Negative Normal [facility] Comment on above: Performed By: #### T NS ####[facility] [id number] [place], [place] [address]An[address]. Adrianna Caldera US PREG <14 WKSon 05-27-2022 US PREG <14 WKS US PELVIS: OB LESS T NOGUEIRA 14 WEEKS HISTORY: G 1 P 0 AB 0 27-year-old female presents for US evaluation with right lower quadrant abdominal pain for one day. TECHNIQUE: Multiple sonographic images are performed of the pelvis using grayscale and color Doppler with both transabdominal and transvaginal probes. COMPARISON: None. FINDINGS: Cervix: Normal. 3.5 cm Closed. Gestational Sac: Present in endometrium. Measures: 5.5 cm, 11 weeks, 4 days. Yolk Sac: Not Visualized. Pole: Visualized. CRL: 6.1 cm, 12 weeks, 4 days. Heart Rate: 153 bpm. Subchorionic Bleed: None. Placenta: The placenta is posterior. Maternal: Ovaries: Right ovary: Measures 3.6 x 1.2 x 1.6 cm. Arterial and venous blood flow demonstrated. Left ovary: Measures 4.3 x 2.4 x 2.1 cm. There is an anechoic area within the left ovary that measures 2.1 x 1.9 x 2.3 cm. Arterial and venous blood flow demonstrated. Free fluid: None. IMPRESSION: 1. Viable Ramos fetus IUP 2. AUA Estimated Gestational Age by US: 12 weeks 4 days +/- 1 week 1 day by ultrasound. 3. Estimated due date by AUA: December 04, 2022. These values correlate with the previously determined dating parameters. 4. Cervix measures 3.5 cm. Closed. Electronically authenticated by: GOVIND JOHNSTON Date: 2022-05-26 22:31 Normal [facility] CBC AUTO DIFFon 05-26-2022 BASO # 0.1 103/ul Normal 0.0-0.[address] [facility] Comment on above: Performed By: #### U ACSIND #### [facility] [address] [address] [address] Adrianna Caldera Basophils/100 WBC (Bld) 0.5 % Normal 0.2-2.0 [facility] Comment on above: Performed By: #### U ACSIND #### [facility] [address] [address] [address] Adrianna Caldera EO # 0.1 103/ul Normal 0.0-0.[address] [facility] Comment on above: Performed By: #### U ACSIND #### [facility] [address] [place] [address] Dr. Adrianna Caldera Eosinophils/100 WBC (Bld) 0.5 % Critically low 0.9-7. 0 [facility] Comment on above: Performed By: #### U ACSIND #### [facility] [address] [place] [address] Dr. Adrianna Caldera Erythrocyte distribution wid th (RBC) [Ratio] 11.9 % Normal 11.0-15.0 [facility] Comment on above: Performed By: #### U ACSIND #### [facility] [address] [place] [address] Dr. Adrianna Caldera Hematocrit (Bld) [Volume fraction] 37.5 % Normal 3 6.0-48.0 [facility] Comment on above: Performed By: #### U ACSIND #### [facility] [address] [place] [address] Dr. Adrianna Caldera Hemoglobin (Bld) [Mass/Vol] 12.8 g/dL Normal 12.0-16. 0 [facility] Comment on above: Performed By: #### U ACSIND #### [facility] [address] [place] [address] Dr. Adrianna Caldera IG # 0.04 10e3/ul Critically high 0.00-0.03 [facility] Comment on above: Performed By: #### U ACSIND #### [facility] [address] [address] [address] Adrianna Caldera IG % 0.4 % Normal 0.0-0.[address] [facility] Comment on above: Performed By: #### U ACSIND #### [facility] [address] [address] [address] Adrianna Caldera LYMPH # 3.0 103/ul Normal 1.2-3.[address] [facility] Comment on above: Performed By: #### U ACSIND #### [facility] [address] [address] [address] Adrianna Caldera Lymphocytes/100 WBC (Bld) 27.0 % Normal 20.5-60.0 [facility] Comment on above: Performed By: #### U ACSIND #### [facility] [address] [place] [address] Dr. Adrianna Caldera MANUAL DIFF REQ NO Normal [facility] Comment on above: Performed By: #### U ACSIND #### [facility] [address] [address] [address] Adrianna Caldera MCH (RBC) [Entitic mass] 29.8 pg Normal 26.7-34.0 [facility] Comment on above: Performed By: #### U ACSIND #### [facility] [address] [address] [address] Adrianna Caldera MCHC (RBC) [Mass/Vol] 34.1 g/dL Normal 29.9-35.2 [facility] Comment on above: Performed By: #### U ACSIND #### [facility] [address] [address] [address] Adrianna Caldera MCV (RBC) [Entitic vol] 87.4 fL Normal 81.0-99.0 [facility] Comment on above: Performed By: #### U ACSIND #### [facility] [address] [address] [address] Adrianna Caldera MONO # 0.7 103/ul Normal 0.3-0.[address] [facility] Comment on above: Performed By: #### U ACSIND #### [facility] [address] [address] [address] Adrianna Caldera Monocytes/100 WBC (Bld) 6.3 % Normal 1.7-12.0 [facility] Comment on above: Performed By: #### U ACSIND #### [facility] [address] [address] [address] Adrianna Caldera NEUT # 7.2 103/ul Critically high 1.4-6.5 [facility] Comment on above: Performed By: #### U ACSIND #### [facility] [address] [address] [address] Adrianna Caldera Neutrophils/100 WBC (Bld) 65.3 % Normal 43.0-75.0 [facility] Comment on above: Performed By: #### U ACSIND #### [facility] [address] [place] [address] Dr. Adrianna Caldera Platelet mean volume (Bld) [ Entitic vol] 10.3 fL Normal 9.5-13.5 [facility] Comment on above: Performed By: #### U ACSIND #### [facility] [address] [address] [address] Adrianna Caldera PLT 316 103/ul Normal 150-450 [facility] Comment on above: Performed By: #### U ACSIND #### [facility] [address] [address] [address] Adrianna Caldera RBC 4.29 106/ul Normal 4.20-5.40 [facility] Comment on above: Performed By: #### U ACSIND #### [facility] [address] [address] [address] Adrianna Caldera WBC 11.0 103/ul Normal 4.0-11.0 [facility] Comment on above: Performed By: #### U ACSIND #### [facility] [address] [address] [address] ABD/PELV W CONon 05-26-20 CT ABD/PELV W CON CT ABDOMEN AND PELVI S WITH CONTRAST: INDICATION: Acute appendicitis. COMPARISON: 07/02/2021. TECHNIQUE:Multiple thin section transaxial slices were acquired through the abdomen and pelvis with intravenous contrast. Coronal and sagittal reconstructed images were reviewed. Oral contrastWas not administered. FINDINGS: LOWER CHEST: The lower chest is unremarkable. LIVER: The liver is unremarkable. GALLBLADDER AND BILIARY SYSTEM: No obvious ductal dilation. No calcified stones. SPLEEN: The spleen is unremarkable. PANCREAS: The pancreas is unremarkable. ADRENAL GLANDS: The adrenal glands are unremarkable. KIDNEYS AND URETERS: There is no hydronephrosis of the kidneys.No obstructing urologic calcifications are present. VASCULATURE: Vascularity is unremarkable. PERITONEUM/RETROPERITONEUM: Peritoneum/retroperitoneum is unremarkable. LYMPH NODES: No suspicious lymphadenopathy. GASTROINTESTINAL TRACT: The bowel is normal in caliber.There are no acute inflammatory changes of the bowel. The appendix is visualized and is within normal limits. BLADDER: The urinary bladder is unremarkable. REPRODUCTIVE SYSTEM: There is an intrauterine gestation present. BODY WALL: Unremarkable. BONES: Osseous structures are unremarkable. IMPRESSION: 1. Normal appendix. No acute findings are identified in the abdomen or pelvis. No obstructive uropathy. Electronically authenticated by: ISIDRO AVILA Date: 2022-05-26 19:39 Normal [facility] Covid-19 PCR (CVDTBH)on 04-30 SARS-CoV-2 (COVID-19) RNA ALESKANDER+probe Ql (Unsp spec) Not detected Normal NOT DETECTED [facility] Comment on above: Result Comment: When diagnostic testing is negative, the possibility of a false negative should be considered in the context of a patient's recent exposures and the presence of clinical signs and symptoms consistent with SARS-CoV-2. This test is not yet approved or cleared by the [place] FDA. When there are no FDA-approved or cleared tests available, and other criteria are met, FDA can make tests available under an emergency access mechanism called an Emergency Use Authorization (EUA). The EUA for this test is supported by the [place] of Health and Human Service's declaration that circumstances exist to justify the emergency use of in vitro diagnostics for the detection and/or diagnosis of the virus that causes COVID-19. This EUA will remain in effect for the duration of the COVID-19 declaration justifying emergency of IVDs, unless it is terminated or revoked by the FDA (after which the test may no longer be used). Performed By: #### U ACSIND #### [facility] [address] [address] [address] Adrianna Caldera ER URINE PROFILEon 2 Bilirubin Ql (U) Negative Normal NEGATIVE [facility] Comment on above: Performed By: #### P REGQNT #### [facility] [address] [place] [address] Dr. Adrianna Caldera Clarity (U) CLEAR Normal CLEAR [facility] Comment on above: Performed By: #### P REGQNT #### [facility] [address] [address] [address] Adrianna Caldera Color (U) YELLOW Normal YELLOW [facility] ostal Comment on above: Performed By: #### P REGQNT #### [facility] [address] [place] [address] Dr. Adrianna Caldera ERUAHD A micrscopic examina tion will be performed if indicated. Normal [facility] l Comment on above: Performed By: #### P REGQNT #### [facility] [address] [place] [address] Dr. Adrianna Caldera Glucose Ql (U) Negative Normal NEGATIVE [facility] Comment on above: Performed By: #### P REGQNT #### [facility] [address] [place] [address] Dr. Adrianna Caldera Hemoglobin Ql (U) Negative Normal NEGATIVE [facility] Comment on above: Performed By: #### P REGQNT #### [facility] [address] [address] [address] Adrianna Caldera Ketones Ql (U) 15 mg/dl Abnormal NEGATIVE [facility] Comment on above: Performed By: #### P REGQNT #### [facility] [address] [place] [address] Dr. Adrianna Caldera LEUKOCYTES Negative Normal NEGATIVE [facility]ital Comment on above: Performed By: #### P REGQNT #### [facility] [address] [place] [address] Dr. Adrianna Caldera Nitrite Ql (U) Negative Normal NEGATIVE [facility] Comment on above: Performed By: #### P REGQNT #### [facility] [address] [place] [address] Dr. Adrianna Caldera pH (U) 7.5 [pH] Normal 5-9 [facility] ospital Comment on above: Performed By: #### P REGQNT #### [facility] [address] [place] [address] Dr. Adrianna Caldera SPEC GRAVITY 1.020 Normal 1.005-<=1.025 [facility] Comment on above: Performed By: #### P REGQNT #### [facility] [address] [place] [address] Dr. Adrianna Caldera UA PROTEIN Negative Normal NEGATIVE/ TRACE [facility] Comment on above: Performed By: #### P REGQNT #### [facility] [address] [place] [address] Dr. Adrianna Caldera UR MICRO IND NOT INDICATED Normal [facility] Comment on above: Performed By: #### P REGQNT #### [facility] [address] [place] [address] Dr. Adrianna Caldera Urobilinogen Qn (U) 0.2 {Micheal'U}/dL Normal 0.2 - 1. 0 [facility] Comment on above: Performed By: #### P REGQNT #### [facility] [address] [place] [address] Dr. Adrianna Caldera LIPASEon 05-26-2022 Lipase [Catalytic activity/Vol] 116.0 U/L Normal 73.0 -393.0 [facility] Comment on above: Performed By: #### L IPA, CMP #### [facility] [address] [place] [address] Dr. Adrianna Caldera PROF 14(COMP METB)on 022 Albumin [Mass/Vol] 3.6 g/dL Normal 3.4-5.0 [facility] Comment on above: Performed By: #### L IPA, CMP #### [facility] [address] [place] [address] Dr. Adrianna Caldera Albumin/Globulin [Mass ratio] 0.9 {ratio} Normal [facility] Comment on above: Performed By: #### L IPA, CMP #### [facility] [address] [place] [address] Dr. Adrianna Caldera ALP [Catalytic activity/Vol] 57 U/L Normal 46-116 [facility] Comment on above: Performed By: #### L IPA, CMP #### [facility] [address] [address] [address] Adrianna Caldera ALT [Catalytic activity/Vol] 13 U/L Critically low 14- 59 [facility] Comment on above: Performed By: #### L IPA, CMP #### [facility] [address] [place] [address] Dr. Adrianna Caldera Anion gap [Moles/Vol] 10.6 mmol/L Normal [facility] Comment on above: Performed By: #### L IPA, CMP #### [facility] [address] [place] [address] Dr. Adrianna Caldera AST [Catalytic activity/Vol] 12 U/L Critically low 15- 37 [facility] Comment on above: Performed By: #### L IPA, CMP #### [facility] [address] [place] [address] Dr. Adrianna Caldera Bilirubin [Mass/Vol] 0.2 mg/dL Normal 0.2-1.0 [facility] Comment on above: Performed By: #### L IPA, CMP #### [facility] [address] [place] [address] Dr. Adrianna Caldera Calcium [Mass/Vol] 8.9 mg/dL Normal 8.5-10.1 [facility] Comment on above: Performed By: #### L IPA, CMP #### [facility] [address] [place] [address] Dr. Adrianna Caldera Chloride [Moles/Vol] 102 mmol/L Normal 98-107 [facility] Comment on above: Performed By: #### L IPA, CMP #### [facility] [address] [place] [address] Dr. Adrianna Caldera CO2 [Moles/Vol] 26.0 mmol/L Normal 21.0-32.0 [facility] Comment on above: Performed By: #### L IPA, CMP #### [facility] [address] [address] [address] Adrianna Caldera Creatinine [Mass/Vol] 0.61 mg/dL Normal 0.55-1.02 [facility] Comment on above: Performed By: #### L IPA, CMP #### [facility] [address] [address] [address] Adrianna Caldera EGFR-AF GEORGIAN >60 Normal >=60 [facility] Comment on above: Performed By: #### L IPA, CMP #### [facility] [address] [address] [address] Adrianna Caldera EGFR-NON AF GEORGIAN >60 Normal >=60 [facility] Comment on above: Performed By: #### L IPA, CMP #### [facility] [address] [address] [address] Adrianna Caldera Globulin (S) [Mass/Vol] 3.8 g/dL Normal [facility] Comment on above: Performed By: #### L IPA, CMP #### [facility] [address] [address] [address] Adrianna Caldera Glucose [Mass/Vol] 82 mg/dL Normal 74-106 [facility] Comment on above: Performed By: #### L IPA, CMP #### [facility] [address] [address] [address] Adrianna Caldera Potassium [Moles/Vol] 3.6 mmol/L Normal 3.5-5.1 [facility] Comment on above: Performed By: #### L IPA, CMP #### [facility] [address] [address] [address] Adrianna Caldera Protein [Mass/Vol] 7.4 g/dL Normal 6.4-8.2 [facility] Comment on above: Performed By: #### L IPA, CMP #### [facility] [address] [address] [address] Adrianna Caldera Sodium [Moles/Vol] 135 mmol/L Critically low 136-145 [facility] Comment on above: Performed By: #### L IPA, CMP #### [facility] [address] [address] [address] Adrianna Caldera Urea nitrogen [Mass/Vol] 9.0 mg/dL Normal 7.0-18.0 [facility] Comment on above: Performed By: #### L IPA, CMP #### [facility] [address] [address] [address] Adrianna Caldera Urea nitrogen/Creatinine [Mass ratio] 14.8 mg/mg Normal [facility] Comment on above: Performed By: #### L IPA, CMP #### [facility] [address] [address] [address] Adrianna Caldera No Panel Informationon 05-17 Body mass index (BMI) [Percentile] Per age and sex 0.1 {percentile} Invalid Interpretation Code [email or web address] [id number] Per age and sex 0.1 {percentile} Invalid Interpretation Code [email or web address] US PREG TVon 05-01-2022 US PREG TV EXAMINATION: US PREG TV HISTORY: Irregular periods COMPARISON: Ultrasound transvaginal 04/08/2022 FINDINGS: GESTATIONAL SAC: Present and normal appearing. YOLK SAC: Present and normal appearing. POLE: Present and normal appearing. CARDIAC: Present. UTERUS: Normal size and appearance. OVARIES: Right: Not seen. Left: Corpus lutein cyst. CERVIX: 3.5 cm in length and closed. CUL-DE-SAC: Normal. OTHER: None. AGE BY LMP: 9 weeks 6 days MANUEL BY LMP: 11/27/2022 AGE BY US CRL: 8 weeks 3 days MANUEL BY US CRL: 12/07/2022 IMPRESSION: 1. Single live intrauterine . Electronically authenticated by: KAROL SIDDIQUI Date: 2022-04-30 22:06 Normal [facility] US PREG TVon 04-08-2022 US PREG TV EXAMINATION: US PREG TV HISTORY: Missed period COMPARISON: No relevant comparison available. FINDINGS: GESTATIONAL SAC: Present and normal appearing. YOLK SAC: Present and normal appearing. POLE: Absent CARDIAC: Absent UTERUS: Normal size and appearance. OVARIES: Right: Not seen. Left: Normal. CERVIX: 4.5 cm in length and closed. CUL-DE-SAC: Normal. OTHER: None. AGE BY LMP: 6 weeks 5 days MANUEL BY LMP: 11/27/2022 AGE BY US SAC SIZE: 5 weeks 1 day MANUEL BY US SAC SIZE: 12/08/2022 IMPRESSION: 1. Suspect early intrauterine . Electronically authenticated by: KAROL SIDDIQUI Date: 2022-04-08 17:08 Normal [facility] US PELVIS TRANSVAGon 022 US PELVIS TRANSVAG EXAM: US PELVIS MANUEL SVAG CLINICAL HISTORY: Left-sided pelvic pain and nausea. G0. LMP January 2022, exact date unknown COMPARISON: 06/22/2021 TECHNIQUE: Transvaginal real-time grayscale and color Doppler imaging with pulsed duplex sonography was performed. FINDINGS: UTERUS: Anteverted. Unremarkable in appearance. Measures 7.1 centimeters in length ENDOMETRIUM: Not thickened measuring 7 millimeters. OVARIES: Probable left corpus luteum cyst. Bilateral ovaries are unremarkable in size and echogenicity. Right ovary measures 2.8 by 1.5 by 1.5 cm. Left ovary measures 3.6 by 2.6 by 2.7 cm. Ovaries demonstrate color Doppler flow and appropriate spectral waveforms. MISCELLANEOUS: No significant free fluid. IMPRESSION: Probable left corpus luteum cyst. Otherwise unremarkable findings of the bilateral ovaries and uterus. Electronically authenticated by: CINDY NOGUEIRA Date: 2022-03-22 22:47 Normal [facility] CBC AUTO DIFFon 03-22-2022 BASO # 0.1 103/ul Normal 0.0-0.1 [facility] ostal Comment on above: Performed By: #### U ACSIND #### [facility] [address] [address] [address] Adrianna Caldera Basophils/100 WBC (Bld) 0.5 % Normal 0.2-2.0 [facility] Comment on above: Performed By: #### U ACSIND #### [facility] [address] [address] [address] Adrianna Caldera EO # 0.1 103/ul Normal 0.0-0.7 [facility] ostal Comment on above: Performed By: #### U ACSIND #### [facility] [address] [address] [address] Adrianna Caldera Eosinophils/100 WBC (Bld) 0.6 % Critically low 0.9-7. 0 [facility] Comment on above: Performed By: #### U ACSIND #### [facility] [address] [place] [address] Dr. Adrianna Caldera Erythrocyte distribution wid th (RBC) [Ratio] 12.6 % Normal 11.0-15.0 [facility] Comment on above: Performed By: #### U ACSIND #### [facility] [address] [place] [address] Dr. Adrianna Caldera Hematocrit (Bld) [Volume fraction] 40.0 % Normal 3 6.0-48.0 [facility] Comment on above: Performed By: #### U ACSIND #### [facility] [address] [place] [address] Dr. Adrianna Caldera Hemoglobin (Bld) [Mass/Vol] 13.6 g/dL Normal 12.0-16. 0 [facility] Comment on above: Performed By: #### U ACSIND #### [facility] [address] [place] [address] Dr. Adrianna Caldera IG # 0.03 10e3/ul Normal 0.00-0.03 [facility] Comment on above: Performed By: #### U ACSIND #### [facility] [address] [place] [address] Dr. Adrianna Caldera IG % 0.3 % Normal 0.0-0.[address] [facility] Comment on above: Performed By: #### U ACSIND #### [facility] [address] [place] [address] Dr. Adrianna Caldera LYMPH # 4.4 103/ul Critically high 1.2-3.8 [facility] Comment on above: Performed By: #### U ACSIND #### [facility] [address] [place] [address] Dr. Adrianna Caldera Lymphocytes/100 WBC (Bld) 38.4 % Normal 20.5-60.0 [facility] Comment on above: Performed By: #### U ACSIND #### [facility] [address] [place] [address] Dr. Adrianna Caldera MANUAL DIFF REQ NO Normal [facility] Comment on above: Performed By: #### U ACSIND #### [facility] [address] [place] [address] Dr. Adrianna Caldera MCH (RBC) [Entitic mass] 30.2 pg Normal 26.7-34.0 [facility] Comment on above: Performed By: #### U ACSIND #### [facility] [address] [place] [address] Dr. Adrianna Caldera MCHC (RBC) [Mass/Vol] 34.0 g/dL Normal 29.9-35.2 [facility] Comment on above: Performed By: #### U ACSIND #### [facility] [address] [place] [address] Dr. Adrianna Caldera MCV (RBC) [Entitic vol] 88.9 fL Normal 81.0-99.0 [facility] Comment on above: Performed By: #### U ACSIND #### [facility] [address] [place] [address] Dr. Adrianna Caldera MONO # 0.7 103/ul Normal 0.3-0.8 [facility] Comment on above: Performed By: #### U ACSIND #### [facility] [address] [place] [address] Dr. Adrianna Caldera Monocytes/100 WBC (Bld) 6.2 % Normal 1.7-12.0 [facility] Comment on above: Performed By: #### U ACSIND #### [facility] [address] [place] [address] Dr. Adrianna Caldera NEUT # 6.1 103/ul Normal 1.4-6.5 [facility] Comment on above: Performed By: #### U ACSIND #### [facility] [address] [place] [address] Dr. Adrianna Caldera Neutrophils/100 WBC (Bld) 54.0 % Normal 43.0-75.0 [facility] Comment on above: Performed By: #### U ACSIND #### [facility] [address] [address] [address] Adrianna Caldera Platelet mean volume (Bld) [ Entitic vol] 10.9 fL Normal 9.5-13.5 [facility] Comment on above: Performed By: #### U ACSIND #### [facility] [address] [address] [address] Adrianna Caldera PLT 277 103/ul Normal 150-450 [facility] Comment on above: Performed By: #### U ACSIND #### [facility] [address] [address] [address] Adrianna Caldera RBC 4.50 106/ul Normal 4.20-5.40 [facility] Comment on above: Performed By: #### U ACSIND #### [facility] [address] [address] [address] Adrianna Caldera WBC 11.3 103/ul Critically high 4.0-11.0 [facility] Comment on above: Performed By: #### U ACSIND #### [facility] [address] [address] [address] Adrianna Caldera ER URINE PROFILEon 2 Bilirubin Ql (U) Negative Normal NEGATIVE [facility] Comment on above: Performed By: #### P DEVENDRA, ERUR ####[facility] [address] [address]Dr. Adrianna Caldera Clarity (U) CLEAR Normal CLEAR [facility] Comment on above: Performed By: #### P BASSEMU, ERUR ####[facility] [address] [address]Dr. Adrianna Caldera Color (U) LT. YELLOW Normal YELLOW [facility] Comment on above: Performed By: #### P REGU, ERUR ####[facility] [address] [address]. Adrianna MORALESD A micrscopic examina tion will be performed if indicated. Normal [facility] l Comment on above: Performed By: #### P REGU, ERUR ####[facility] [address] [place], [place] [address]Dr. Adrianna Caldera Glucose Ql (U) Negative Normal NEGATIVE [facility] Comment on above: Performed By: #### P REGU, ERUR ####[facility] [address] [place], [place] [address]Dr. Adrianna Caldera Hemoglobin Ql (U) Negative Normal NEGATIVE [facility] Comment on above: Performed By: #### P REGU, ERUR ####[facility] [address] [place], [place] [address]Dr. Adrianna Caldera Ketones Ql (U) Negative Normal NEGATIVE [facility] Comment on above: Performed By: #### P REGU, ERUR ####[facility] [address] [place], [place] [address]Dr. Adrianna Caldera LEUKOCYTES Negative Normal NEGATIVE [facility] Comment on above: Performed By: #### P REGU, ERUR ####[facility] [address] [place], [place] [address]Dr. Adrianna Caldera Nitrite Ql (U) Negative Normal NEGATIVE [facility] Comment on above: Performed By: #### P REGU, ERUR ####[facility] [address] [place], [place] [address]Dr. Adrianna Caldera pH (U) 6.0 [pH] Normal 5-[address] [facility] Comment on above: Performed By: #### P REGU, ERUR ####[facility] [address] [place], [place] [address]Dr. Adrianna Caldera SPEC GRAVITY <=1.005 Abnormal 1.005-<=1.025 [facility] Comment on above: Performed By: #### P REGU, ERUR ####[facility] [address] [place], [place] [address]Dr. Adrianna Caldera UA PROTEIN Negative Normal NEGATIVE/ TRACE [facility] Comment on above: Performed By: #### P REGU, ERUR ####[facility] [address] [id number] Caldera UR MICRO IND NOT INDICATED Normal [facility] Comment on above: Performed By: #### P REGU, ERUR ####[facility] [address] [id number] Caldera Urobilinogen Qn (U) 0.2 {Micheal'U}/dL Normal 0.2 - 1. 0 [facility] Comment on above: Performed By: #### P REGU, ERUR ####[facility] [address] [address] Adrianna Caldera PREG QUANT HCGon 03-22-2022 HCG QUANT 2 mIU/mL Normal [facility] Comment on above: Performed By: #### P REGQNT #### [facility] [address] [place] [address] Dr. Adrianna Caldera HCG RANGE SEE BELOW Normal [facility] Comment on above: Result Comment: 5-50 0.2-1 WEEK 50-500 1-2 WEEKS 100-5,000 2-3 WEEKS 500-10,000 3-4 WEEKS 1,000-50,000 4-5 WEEKS 10,000-100,000 5-6 WEEKS 15,000-200,000 6-8 WEEKS 10,000- 100,000 2-3 MONTHS Performed By: #### P REGQNT #### [facility] [address] [address] [address] Adrianna Caldera URon 03-22-2022 , QUAL Negative Normal NEGATIVE [facility] Comment on above: Performed By: #### P REGU, ERUR ####[facility] [address] [address]Dr. Adrianna Caldera PROF CHEM 8 (BAS METB)on Anion gap [Moles/Vol] 10.9 mmol/L Normal [facility] Comment on above: Performed By: #### U ACSIND #### [facility] [address] [address] [address] Adrianna Caldera Calcium [Mass/Vol] 9.1 mg/dL Normal 8.5-10.1 [facility] Comment on above: Performed By: #### U ACSIND #### [facility] [address] [address] [address] Adrianna Caldera Chloride [Moles/Vol] 105 mmol/L Normal 98-107 [facility] Comment on above: Performed By: #### U ACSIND #### [facility] [address] [address] [address] Adrianna Caldera CO2 [Moles/Vol] 26.0 mmol/L Normal 21.0-32.0 [facility] Comment on above: Performed By: #### U ACSIND #### [facility] [address] [address] [address] Adrianna Caldera Creatinine [Mass/Vol] 0.98 mg/dL Normal 0.55-1.02 [facility] Comment on above: Performed By: #### U ACSIND #### [facility] [address] [address] [address] Adrianna Caldera EGFR-AF GEORGIAN >60 Normal >=60 [facility] Comment on above: Performed By: #### U ACSIND #### [facility] [address] [address] [address] Adrianna Caldera EGFR-NON AF GEORGIAN >60 Normal >=60 [facility] Comment on above: Performed By: #### U ACSIND #### [facility] [address] [address] [address] Adrianna Caldera Glucose [Mass/Vol] 87 mg/dL Normal 74-106 [facility] Comment on above: Performed By: #### U ACSIND #### [facility] [address] [address] [address] Adrianna Caldera Potassium [Moles/Vol] 3.9 mmol/L Normal 3.5-5.1 [facility] Comment on above: Performed By: #### U ACSIND #### [facility] [address] [address] [address] Adrianna Caldera Sodium [Moles/Vol] 138 mmol/L Normal 136-145 [facility] Comment on above: Performed By: #### U ACSIND #### [facility] [address] [address] [address] Adrianna Caldera Urea nitrogen [Mass/Vol] 11.0 mg/dL Normal 7.0-18.0 [facility] Comment on above: Performed By: #### U ACSIND #### [facility] [address] [address] [address] Adrianna Caldera Urea nitrogen/Creatinine [Mass ratio] 11.2 mg/mg Normal [facility] Comment on above: Performed By: #### U ACSIND #### [facility] [address] [address] [address] Adrianna Caldera PREG QUANT HCGon 03-03-2022 HCG QUANT 1 mIU/mL Normal [facility] Comment on above: Performed By: #### P REGQNT #### [facility] [address] [address] [address] Adrianna Caldera HCG RANGE SEE BELOW Normal [facility] Comment on above: Result Comment: 5-50 0.2-1 WEEK 50-500 1-2 WEEKS 100-5,000 2-3 WEEKS 500-10,000 3-4 WEEKS 1,000-50,000 4-5 WEEKS 10,000-100,000 5-6 WEEKS 15,000-200,000 6-8 WEEKS 10,000- 100,000 2-3 MONTHS Performed By: #### P REGQNT #### [facility] [address] [place] [address] Dr. Adrianna Caldera Creatinine and Glomerular fi ltration rate.predicted panel (S/P/Bld)Ordered By: Tae Natarajan on 02-10-2022 Creatinine [Mass/Vol] 1.03 mg/dL 0.44-1.03 [facility] Estimated glomerular filtrat ion rate (GFR) non- AmericanOrdered By: Tae Natarajan on 02-10-2022 GFR/1.73 sq M.predicted vilma g non-blacks MDRD (S/P/Bld) [Vol rate/Area] > 60 mL/Min [facility] HCG ( test) IA.rapi d Ql (U)Ordered By: Tae Natarajan on 02-10-2022 HCG ( test) Ql (U) Negative [facility] No Panel InformationOrdered By: Tae Natarajan on 02-10-2022 Estimated GFR () > 60 mL/Min [facility] Comment on above: GFR estimated refere nce range: According to KDOQI guidelines, <60 ml/min/1.73m2 is sufficient to diagnose a patient with chronic kidney disease. Pharmacy Creatinine Clearance (Chem 88.89 [facility] Serum or plasma urea nitroge n measurement (mass/volume)Ordered By: Tae Natarajan on 02-10-2022 Urea nitrogen [Mass/Vol] 9 mg/dL 02-19 [facility] PREG QUANT HCGon 12-04-2021 HCG QUANT <1 Normal [facility] Comment on above: Performed By: #### P REGQNT #### [facility] [address] [address] [address] Adrianna Caldera HCG RANGE SEE BELOW Normal [facility] Comment on above: Result Comment: 5-50 0-1 WEEK 40-300 1-2 WEEKS 100-1,000 2-3 WEEKS 500-6,000 3-4 WEEKS 5,000-200,000 1-2 MONTHS 10,000-100,000 2-3 MONTHS 3,000-50,000 2ND TRIMESTER 1,000-50,000 3RD TRIMESTER Performed By: #### P REGQNT #### [facility] [address] [address] [address] Adrianna Caldera CBC AUTO DIFFon 11-14-2021 BASO # 0.1 103/ul Normal 0.0-0.1 [facility] Comment on above: Performed By: #### C BC ####[facility] [address] [id number]. Adrianna Caldera Basophils/100 WBC (Bld) 0.5 % Normal 0.2-2.0 [facility] Comment on above: Performed By: #### C BC ####[facility] [address] [address]Dr. Adrianna Caldera EO # 0.1 103/ul Normal 0.0-0.7 [facility] Comment on above: Performed By: #### C BC ####[facility] P[address] [place], [place] [address]Dr. Adrianna Caldera Eosinophils/100 WBC (Bld) 0.8 % Critically low 0.9-7. 0 [facility] Comment on above: Performed By: #### C BC ####[facility] [address] [place], [place] [address]Dr. Adrianna Caldera Erythrocyte distribution wid th (RBC) [Ratio] 13.0 % Normal 11.0-15.0 [facility] Comment on above: Performed By: #### C BC ####[facility] [address] [place], [place] [address]Dr. Adrianna Caldera Hematocrit (Bld) [Volume fraction] 38.5 % Normal 3 6.0-48.0 [facility] Comment on above: Performed By: #### C BC ####[facility] N[address] [place], [place] [address]Dr. Adrianna Caldera Hemoglobin (Bld) [Mass/Vol] 12.9 g/dL Normal 12.0-16. 0 [facility] Comment on above: Performed By: #### C BC ####[facility] [address] [place], [place] [address]Dr. Adrianna Werner IG # 0.03 10e3/ul Normal 0.00-0.03 [facility] Comment on above: Performed By: #### C BC ####[facility] [address] [place], [place] [address]Dr. Adrianna Caldera IG % 0.3 % Normal 0.0-0.5 [facility] Comment on above: Performed By: #### C BC ####[facility] Wrt[address] [place], [place] [address]Dr. Jemimabenito Caldera LYMPH # 2.8 103/ul Normal 1.2-3.8 [facility] Comment on above: Performed By: #### C BC ####[facility] [address] [id number]. Adrianna Caldera Lymphocytes/100 WBC (Bld) 27.4 % Normal 20.5-60.0 [facility] Comment on above: Performed By: #### C BC ####[facility] [address] [id number]. Jemimabenito Caldera MANUAL DIFF REQ NO Normal [facility] Comment on above: Performed By: #### C BC ####[facility] [address] [id number]. Adrianna Werner MCH (RBC) [Entitic mass] 29.7 pg Normal 26.7-34.0 [facility] Comment on above: Performed By: #### C BC ####[facility] [address] [place], [place] [address]Dr. Adrianna Werner MCHC (RBC) [Mass/Vol] 33.5 g/dL Normal 29.9-35.2 [facility] Comment on above: Performed By: #### C BC ####[facility] [address] [place], [place] [id number]. Adrianna Werner MCV (RBC) [Entitic vol] 88.7 fL Normal 81.0-99.0 [facility] Comment on above: Performed By: #### C BC ####[facility] [address] [id number]. Adrianna Caldera MONO # 0.7 103/ul Normal 0.3-0.8 [facility] Comment on above: Performed By: #### C BC ####[facility] [address] [place], [place] [id number]. Jemimabenito Caldera Monocytes/100 WBC (Bld) 6.5 % Normal 1.7-12.0 [facility] Comment on above: Performed By: #### C BC ####[facility] Pd[address] [place], [place] [id number]. Adrianna Caldera NEUT # 6.5 103/ul Normal 1.4-6.5 [facility] Comment on above: Performed By: #### C BC ####[facility] [address] [place], [place] [address]Dr. Adrianna Caldera Neutrophils/100 WBC (Bld) 64.5 % Normal 43.0-75.0 [facility] Comment on above: Performed By: #### C BC ####[facility] [address] [place], [place] [address]Dr. Adrianna Caldera Platelet mean volume (Bld) [ Entitic vol] 10.4 fL Normal 9.5-13.5 [facility] Comment on above: Performed By: #### C BC ####[facility] [address] [place], [place] [address]Dr. Adrianna Caldera PLT 324 103/ul Normal 150-450 [facility] Comment on above: Performed By: #### C BC ####[facility] I[address] [place], [place] [address]Dr. Adrianna Caldera RBC 4.34 106/ul Normal 4.20-5.40 [facility] Comment on above: Performed By: #### C BC ####[facility] [address] [place], [place] [address]Dr. Adrianna Caldera WBC 10.1 103/ul Normal 4.0-11.0 [facility] Comment on above: Performed By: #### C BC ####[facility] Cx[address] [place], [place] [address]Dr. Adrianna aCldera ER URINE PROFILEon 2 Bilirubin Ql (U) Negative Normal NEGATIVE [facility] Comment on above: Performed By: #### JOHN HAYNES UMICRO ####[facility] L[address] [place], [place] [address]Dr. Adrianna Caldera Clarity (U) CLEAR Normal CLEAR [facility] Comment on above: Performed By: #### HECTOR HAYNESU, UMICRO ####[facility] Kn[address] [place], [place] [address]Dr. Adrianna Caldera Color (U) LT. YELLOW Normal YELLOW [facility] Comment on above: Performed By: #### E HECTOR MONDRAGONU UMICRO ####[facility] [address] [id number]. Adrianna LINARES A micrscopic examina tion will be performed if indicated. Normal [facility] Comment on above: Performed By: #### E RUR, PREGU, UMICRO ####[facility] [address] [id number]. Adrianna Caldera Glucose Ql (U) Negative Normal NEGATIVE [facility] Comment on above: Performed By: #### E RUR, PREGU, UMICRO ####[facility] [address] [address]Dr. Adrianna Caldera Hemoglobin Ql (U) LARGE Abnormal NEGATIVE [facility] Comment on above: Performed By: #### E RUR, PREGU, UMICRO ####[facility] [address] [address]Dr. Adrianna Caldera Ketones Ql (U) Negative Normal NEGATIVE [facility] Comment on above: Performed By: #### Rojelio RUR, PREGU, UMICRO ####[facility] [address] [address]Dr. Adrianna Caldera LEUKOCYTES Negative Normal NEGATIVE [facility] Comment on above: Performed By: #### E RUR, PREGU, UMICRO ####[facility] [address] [address]Dr. Adrianna Caldera Nitrite Ql (U) Negative Normal NEGATIVE [facility] Comment on above: Performed By: #### E RUR, PREGU, UMICRO ####[facility] [address] [address]Dr. Adrianna Caldera pH (U) 6.5 [pH] Normal 5-[address] [facility] Comment on above: Performed By: #### E RUR, PREGU, UMICRO ####[facility] [address] [address]Dr. Adrianna Caldera SPEC GRAVITY 1.015 Normal 1.005-<=1.025 [facility] Comment on above: Performed By: #### E RUR, PREGU, UMICRO ####[facility] [address] [address]Dr. Adrianna Caldera UA PROTEIN Negative Normal NEGATIVE/ TRACE [facility] Comment on above: Performed By: #### E RUR, PREGU, UMICRO ####[facility] [address] [address]Dr. Adrianna Caldera UR MICRO IND INDICATED Normal [facility] Comment on above: Performed By: #### E RUR, PREGU, UMICRO ####[facility] [address] [address]Dr. Adrianna Caldera Urobilinogen Qn (U) 0.2 {Micheal'U}/dL Normal 0.2 - 1. 0 [facility] Comment on above: Performed By: #### E RUR, PREGU, UMICRO ####[facility] [address] [address]Dr. Adrianna Caldera URon 11-14-2021 , QUAL Negative Normal NEGATIVE [facility] Comment on above: Performed By: #### E RUR, PREGU, UMICRO ####[facility] [address] [address]DrAung Caldera PROF CHEM 8 (BAS METB)on Anion gap [Moles/Vol] 13.5 mmol/L Normal [facility] Comment on above: Performed By: #### U ACSIND #### [facility] [address] [address] [address] Adrianna Caldera Calcium [Mass/Vol] 8.7 mg/dL Normal 8.5-10.1 [facility] Comment on above: Performed By: #### U ACSIND #### [facility] [address] [address] [address] Adrianna Caldera Chloride [Moles/Vol] 102 mmol/L Normal 98-107 [facility] Comment on above: Performed By: #### U ACSIND #### [facility] [address] [address] [address] Adrianna Caldera CO2 [Moles/Vol] 27.3 mmol/L Normal 21.0-32.0 [facility] Comment on above: Performed By: #### U ACSIND #### [facility] [address] [address] [address] Adrianna Caldera Creatinine [Mass/Vol] 0.85 mg/dL Normal 0.55-1.02 [facility] Comment on above: Performed By: #### U ACSIND #### [facility] [address] [address] [address] Adrianna Caldera EGFR-AF GEORGIAN >60 Normal >=60 [facility] Comment on above: Performed By: #### U ACSIND #### [facility] [address] [address] [address] Adrianna Caldera EGFR-NON AF GEORGIAN >60 Normal >=60 [facility] Comment on above: Performed By: #### U ACSIND #### [facility] [address] [address] [address] Adrianna Caldera Glucose [Mass/Vol] 104 mg/dL Normal 74-106 [facility] Comment on above: Performed By: #### U ACSIND #### [facility] [address] [place] [address] Dr. Adrianna Caldera Potassium [Moles/Vol] 3.8 mmol/L Normal 3.5-5.1 [facility] Comment on above: Performed By: #### U ACSIND #### [facility] [address] [address] [address] Adrianna Caldera Sodium [Moles/Vol] 139 mmol/L Normal 136-145 [facility] Comment on above: Performed By: #### U ACSIND #### [facility] [address] [address] [address] Adrianna Caldera Urea nitrogen [Mass/Vol] 8.0 mg/dL Normal 7.0-18.0 [facility] Comment on above: Performed By: #### U ACSIND #### [facility] [address] [address] [address] Adrianna Caldera Urea nitrogen/Creatinine [Mass ratio] 9.4 mg/mg Normal [facility] Comment on above: Performed By: #### U ACSIND #### [facility] [address] [address] [address] Adrianna Caldera URINE MICROSCOPIC ONLYon BACTERIA NONE SEEN Normal NONE SEEN [facility] Comment on above: Performed By: #### JOHN HAYNES UMICRO ####[facility] [address] [address]DrAung Caldera Bacteria identified Cx Nom (U) NOT INDICATED Normal [facility] Comment on above: Performed By: #### JOHN HAYNES UMICRO ####[facility] [address] [address]DrAung Cladera CAST NONE SEEN Normal NONE SEEN [facility] Comment on above: Performed By: #### JOHN HAYNES UMICRO ####[facility] [address] [address]DrAung Caldera Crystals LM Nom (Urine sed) NONE SEEN Normal NONE SEE N [facility] Comment on above: Performed By: #### JOHN HAYNES UMICRO ####[facility] [address] [address]DrAung Caldera Epithelial cells LM Ql (Urine sed) RARE Normal N ONE SEEN /RARE [facility] Comment on above: Performed By: #### JOHN HAYNES UMICRO ####[facility] [address] [address]Dr. Adrianna Caldera MUCOUS NONE SEEN Normal NONE SEEN [facility] Comment on above: Performed By: #### JOHN HAYNES UMICRO ####[facility] [address] [address]DrAung Caldera RBC 10-20 Abnormal 0-2 [facility] Comment on above: Performed By: #### JOHN HAYNES UMICRO ####[facility] [address] [address]DrAung Caldera WBC 0-2 Abnormal NONE SEEN [facility] Comment on above: Performed By: #### E JOHN MONDRAGON UMICRO ####[facility] [address] [place], [place] [address]Aq. Adrianna Caldera HCG, Quantitative, on 10-12-2021 hCG Quant <1 <5 mIU/mL [facility] Comment on above: Non-preg premeno <=5 Postmeno <=8 Male <=3 If HCG results do not concur with clinical observations, additional testing to confirm results is recommended. Elevated results not associated with may be found in patients with other diseases such as tumors of the germ cells (testis, ovaries, etc.), bladder, pancreas, stomach, lungs, and liver. [facility] CBC with Auto Differentialon 10-11-2021 Absolute Eos # 0.08 [facility] th Absolute Immature Granulocyte <0.03 [facility] Absolute Lymph # 1.85 [facility] alth Absolute [place] # 0.56 [facility] lth Basophils (Bld) [#/Vol] 0.04 10*3/uL [facility] Basophils/100 WBC (Bld) 1 % 0 - 2 % [facility] Eosinophils/100 WBC (Bld) 1 % 1 - 4 % [facility] Hematocrit (Bld) [Volume fraction] 38.9 % 3 6.3 - 47.1 % [facility] Hemoglobin.gastrointestinal spec 1 Ql (Stl) 12.7 g/dL 11.9 - 15.1 g/dL [facility] Immature granulocytes/100 WBC (Bld) 0 % 0 [facility] Lymphocytes/100 WBC (Bld) 29 % 24 - 43 % [facility] MCH (RBC) [Entitic mass] 29.7 pg 25.2 - 33.5 pg [facility] MCHC (RBC) [Mass/Vol] 32.6 g/dL 28.4 - 34.8 g/ dL [facility] MCV (RBC) [Entitic vol] 90.9 fL 82.6 - 102.9 fL [facility] Monocytes/100 WBC (Bld) 9 % 3 - 12 % [facility] NRBC Automated 0.0 0.0 per 100 WBC [facility] Platelet distribution width (Bld) [Ratio] 12.9 % 11.8 - 14.4 % [facility] Platelet mean volume (Bld) [Entitic vol] 10.3 fL 8.1 - 13.5 fL [facility] Platelets (Bld) [#/Vol] 351 10*3/uL [facility] RBC (Bld) [#/Vol] 4.28 10*6/uL 3.95 - 5.11 m/uL [facility] Segmented neutrophils/100 WBC (Bld) 60 % 36 - 65 % [facility] Segs [facility] WBC (Bld) [#/Vol] 6.5 10*3/uL [facility] CT ABDOMEN PELVIS W IV CONTR AST Additional Contrast? Noneon 10-11-2021 Negative acute infla mmatory process or bowel obstruction. PN RIS CONSOLIDATE D EXAMINATION: CT OF THE ABDOMEN AND PELVIS WITH CONTRAST 10/11/2021 4:10 pm TECHNIQUE: CT of the abdomen and pelvis was performed with the administration of intravenous contrast. Multiplanar reformatted images are provided for review. Automated exposure control, iterative reconstruction, and/or weight based adjustment of the mA/kV was utilized to reduce the radiation dose to as low as reasonably achievable. COMPARISON: None. HISTORY: ORDERING SYSTEM PROVIDED HISTORY: lower abdominal pain and flank pain TECHNOLOGIST PROVIDED HISTORY: lower abdominal pain and flank pain Decision Support Exception - unselect if not a suspected or confirmed emergency medical condition->Emergency Medical Condition (MA) FINDINGS: Lower Chest: Lung bases are clear Organs: Liver, spleen, adrenal glands, kidneys, pancreas unremarkable. No hydronephrosis. Gallbladder is not remarkable. GI/Bowel: Vjiv-ac-jriprozj retained stool without bowel obstruction. No pericecal inflammatory changes. Appendix unremarkable. Pelvis: There is mild prominence endometrial canal 7 mm. This may related to phase of menstrual cycle. Please correlate exam findings and history. No suspicious adnexal mass. Bladder remarkable. Peritoneum/Retroperitoneum: Trace free fluid dependent pelvis. No free air. No suspicious adenopathy. Bones/Soft Tissues: No suspicious osseous lesion [facility] RIS CONSOLIDATE D Ashutosh Omalley MD - EXAMINATION: CT OF THE ABDOMEN AND PELVIS WITH CONTRAST 10/11/2021 4:10 pm TECHNIQUE: CT of the abdomen and pelvis was performed with the administration of intravenous contrast. Multiplanar reformatted images are provided for review. Automated exposure control, iterative reconstruction, and/or weight based adjustment of the mA/kV was utilized to reduce the radiation dose to as low as reasonably achievable. COMPARISON: None. HISTORY: ORDERING SYSTEM PROVIDED HISTORY: lower abdominal pain and flank pain TECHNOLOGIST PROVIDED HISTORY: lower abdominal pain and flank pain Decision Support Exception - unselect if not a suspected or confirmed emergency medical condition->Emergency Medical Condition (MA) FINDINGS: Lower Chest: Lung bases are clear Organs: Liver, spleen, adrenal glands, kidneys, pancreas unremarkable. No hydronephrosis. Gallbladder is not remarkable. GI/Bowel: Ovwn-rd-sqtdxfrd retained stool without bowel obstruction. No pericecal inflammatory changes. Appendix unremarkable. Pelvis: There is mild prominence endometrial canal 7 mm. This may related to phase of menstrual cycle. Please correlate exam findings and history. No suspicious adnexal mass. Bladder remarkable. Peritoneum/Retroperitoneum: Trace free fluid dependent pelvis. No free air. No suspicious adenopathy. Bones/Soft Tissues: No suspicious osseous lesion IMPRESSION: Negative acute inflammatory process or bowel obstruction. [employer] Work Phone: Radiology Study observation (narrative) [employer] Work Phone: CT ABDOMEN PELVIS W IV CONTR AST Additional Contrast? NoneOrdered By: Ashutosh Omalley on 10-11-2021 [employer] Work Phone: Comprehensive Metabolic Pane l w/ Reflex to MGon 10-11-2021 Albumin [Mass/Vol] 4.3 g/dL 3.5 - 5.2 g/dL [facility] [employer] Albumin/Globulin [Mass ratio] 1.7 {ratio} [facility] [place] [facility] [employer] ALP (Bld) [Catalytic activity/Vol] 73 U/L 3 5 - 104 U/L [facility] [place] [facility] [employer] ALT [Catalytic activity/Vol] 21 U/L 5 - 33 U/L [facility] [place] [facility] [employer] Anion gap [Moles/Vol] 7 mmol/L Low 9 - 17 mmol/L [facility] [place] [facility] [employer] AST [Catalytic activity/Vol] 15 U/L <32 [facility] [place] [facility] [employer] Bilirubin [Mass/Vol] 0.25 mg/dL Low 0.3 - 1.2 mg/dL [facility] Calcium [Mass/Vol] 9.1 mg/dL 8.6 - 10.4 mg/dL [facility] Chloride [Moles/Vol] 105 mmol/L 98 - 107 mmol/L [facility] CO2 [Moles/Vol] 26 mmol/L 20 - 31 mmol/L [facility] Creatinine [Mass/Vol] 0.75 mg/dL 0.50 - 0.90 mg /dL [facility] Free PSA/Total PSA [Mass fraction] 6.8 g/dL 6 .4 - 8.3 g/dL [facility] GFR >60 >60 mL/min [facility] GFR Non- >60 >60 mL/min [facility] Glucose [Mass/Vol] 116 mg/dL High 70 - 99 mg/dL [facility] Interpretation and review of laboratory results Abnormal [facility] Potassium [Moles/Vol] 3.9 mmol/L 3.7 - 5.3 mmol /L [facility] Sodium [Moles/Vol] 138 mmol/L 135 - 144 mmol/L [facility] Urea nitrogen (BldV) [Mass/Vol] 9 mg/dL 6 - 20 mg/dL [facility] Urea nitrogen/Creatinine (Bl d) [Mass ratio] 12 [facility] - Chemistry and C hemistry - challengeon 10-11-2021 GFR/1.73 sq M.predicted MDRD (S/P/Bld) [Vol rate/Area] [facility] Comment on above: Average GFR for 20-2 9 years old: 116 mL/min/1.73sq m Chronic Kidney Disease: <60 mL/min/1.73sq m Kidney failure: <15 mL/min/1.73sq m eGFR calculated using average adult body mass. Additional eGFR calculator available at: http://www.[employer]/multiple_crcl_2011.htm Stage 1: Some kidney damage normal GFR Stage 2: Mild kidney damage GFR 60-89 Stage 3: Moderate kidney damage GFR 30-59 Stage 4: Severe kidney damage GFR 15-29 Stage 5: Severe kidney damage GFR <15 ESRD - chronic treatment by dialysis or transplant Lipaseon 10-11-2021 Lipase [Catalytic activity/Vol] 39 U/L 13 - 60 U/L [facility] Microscopic Urinalysison - [facility] Bacteria, UA TRACE Abnormal None [facility] Crystals, UA 2 TO 5 CALCIUM OXALATE Abnormal None /HPF [facility] [facility] Epithelial Cells UA 2 TO 5 [facility] Interpretation and review of laboratory results Abnormal [facility] RBC, UA 2 TO 5 [facility] WBC, UA 0 TO 2 [facility] No Panel Informationon 10-11 [facility] , Urineon 2 Beta HCG ( test) Ql (U) Negative NEG ATIVE [facility] Comment on above: Specimens with hCG l evels near the threshold of the test (25 mIU/mL) may give a negative or indeterminate result. In such cases, another test should be performed with a new specimen in 48-72 hours. If early is suspected clinically in this setting, correlation with quantitative serum b-hCG level is suggested. [employer] has confirmed the use of plasma for this test. This has not been cleared or approved by the U.S. Food and Drug Administration. The FDA has determined that such clearance is not necessary. [facility] Urinalysis with Reflex to Cu ltureon 10-11-2021 Bilirubin U[facility] Negative [facility], [facility] Yellow Yellow [facility] Glucose, Ur Negative NEGATIVE [facility] Interpretation and review of laboratory results Abnormal [facility] Ketones Ql (U) Negative NEGATIVE [facility] Leukocyte esterase Test strip Ql (U) Negative NEGATIVE [facility] Nitrite, Urine Negative NEGATIVE [facility] pH, UA 6.0 [facility] Protein, UA Negative NEGATIVE [facility] Specific [place], UA >1.030 High [facility] Turbidity UA Clear Clear [facility] Urine Hgb TRACE Abnormal NEGATIVE [facility] Urobilinogen, Urine Normal Normal [facility] PREG QUANT HCGon 10-09-2021 HCG QUANT <[address] [facility] Comment on above: Performed By: #### P REGQNT ####[facility] [address] [place], [place] [address]SeAung Jemimabenito Caldera HCG RANGE SEE BELOW Normal [facility] Comment on above: Result Comment: 5-50 0-1 WEEK 40-300 1-2 WEEKS 100-1,000 2-3 WEEKS 500-6,000 3-4 WEEKS 5,000-200,000 1-2 MONTHS 10,000-100,000 2-3 MONTHS 3,000-50,000 2ND TRIMESTER 1,000-50,000 3RD TRIMESTER Performed By: #### P REGQNT ####[facility] [address] [place], [place] [address]EpAung Caldera CULTURE, URINE, ROUTINEon CULTURE, URINE, ROUTINE SEE NOTE Abnormal [facility] Comment on above: Result Comment: CULTURE, URINE, ROUTINE Micro Number: [id number] Test Status: Final Specimen Source: Urine Specimen Quality: Adequate Result: 10,000-49,000 CFU/mL of Escherichia coli 1,000-9,000 CFU/ML of Group B Streptococcus isolated Beta-hemolytic streptococci are predictably susceptible to Penicillin and other beta-lactams. Susceptibility testing not routinely performed. Please contact the laboratory within 3 days if susceptibility testing is desired. Comment: Erythromycin and clindamycin are not recommended for treatment of urinary tract infections, but clindamycin may be useful for treatment in penicillin allergic patients for rectovaginal colonization or for intrapartum prophylaxis if indicated. Any amount of group B Streptococcus in urine specimens obtained from females is a marker of genital tract colonization. If this patient is , please refer to ACOG guidelines for appropriate screening and management of women. E.coli INT ALEJANDRO AMOX/CLAVULANATE S <=2 AMPICILLIN S 4 AMP/SULBACTAM S <=2 CEFAZOLIN NR <=4 2 CEFEPIME S <=1 CEFTRIAXONE S <=1 CIPROFLOXACIN S <=0.25 ERTAPENEM S <=0.5 GENTAMICIN S <=1 IMIPENEM S <=0.25 LEVOFLOXACIN S <=0.12 NITROFURANTOIN S <=16 PIP/TAZOBACTAM S <=4 TOBRAMYCIN S <=1 TRIMETHOPRIM/SULFA S <=20 S=Susceptible I=Intermediate R=Resistant * = Not Tested NR = Not Reported NN = See Therapy Comments THERAPY COMMENTS Note 1: For infections other than uncomplicated UTI caused by E. coli, K. pneumoniae or P. mirabilis: Cefazolin is resistant if ALEJANDRO > or = 8 mcg/mL. (Distinguishing susceptible versus intermediate for isolates with ALEJANDRO < or = 4 mcg/mL requires additional testing.) Note 2: For uncomplicated UTI caused by E. coli, K. pneumoniae or P. mirabilis: Cefazolin is susceptible if ALEJANDRO <32 mcg/mL and predicts susceptible to the oral agents cefaclor, cefdinir, cefpodoxime, cefprozil, cefuroxime, cephalexin and loracarbef. Performed By: #### 3 [id number] #### [facility] [address], [address] [place] [address] Shop Mechanic Helper: Javid Broussard MD XR CHEST PORTABLEon 03-16-20 No acute process. [place], [place] EXAMINATION: ONE XRA Y VIEW OF THE CHEST 03/16/2020 3:33 pm COMPARISON: 07/13/2014 HISTORY: ORDERING SYSTEM PROVIDED HISTORY: cough, dyspnea TECHNOLOGIST PROVIDED HISTORY: cough, dyspnea FINDINGS: The lungs are without acute focal process. There is no effusion or pneumothorax. The cardiomediastinal silhouette is without acute process. The osseous structures are without acute process. [place], [place] James, Mhpn Incoming R adiant Results From XimoXie/Pacs - 03/16/2020 3:43 PM EDT EXAMINATION: ONE XRAY VIEW OF THE CHEST 03/16/2020 3:33 pm COMPARISON: 07/13/2014 HISTORY: ORDERING SYSTEM PROVIDED HISTORY: cough, dyspnea TECHNOLOGIST PROVIDED HISTORY: cough, dyspnea FINDINGS: The lungs are without acute focal process. There is no effusion or pneumothorax. The cardiomediastinal silhouette is without acute process. The osseous structures are without acute process. IMPRESSION: No acute process. [place], [place] Urinalysis with Microscopico n 03-03-2020 Amorphous, UA 1+ Abnormal None [place], [place] Bacteria, UA NOT REPORTED None [place], [place] Bilirubin Urine Negative NEGATIVE [place], [place] Casts UA NOT REPORTED /LPF [place], [place] Color, UA YELLO YELLOW [place], [place] Crystals, UA NOT REPORTED None /HPF [place] Epithelial Cells UA None [place], [place] Glucose, Ur Negative NEGATIVE [place] Interpretation and review of laboratory results Abnormal [place], [place] Ketones Ql (U) Negative NEGATIVE [place] Leukocyte esterase Test stri p Ql (U) Negative NEGATIVE [place], [place] Mucus, UA NOT REPORTED None [place], [place] Nitrite, Urine Negative NEGATIVE [place] Other Observations UA NOT REPORTED NOT REQ. M [place], [place] pH, UA 6.0 [place], [place] Protein (U) [Mass/Vol] Negative NEGATIVE [place], [place] RBC (U) [#/Vol] None [facility] [place] [facility] [place] Renal Epithelial, UA NOT REPORTED 0 /HPF [place] Specific [place], UA >1.030 High [place], [place] Trichomonas, UA NOT REPORTED None [facility] [place] [facility] [place] Turbidity UA CLOUDY Abnormal CLEAR [place] Urinalysis Comments NOT REPORTED [place] Urine Hgb TRACE Abnormal NEGATIVE [place], [place] Urobilinogen, Urine Normal Normal [place], [place] WBC, UA 0 TO 2 [place], [place] Yeast, UA NOT REPORTED None [place] - [place] HEPATOBILIARY SCAN W EJEC TION FRACTIONon 10-12-2019 Cholesterol [Mass/Vol] No convincing sci ntigraphic evidence of acute or chronic cholecystitis. [place] EXAMINATION: NUCLEAR MEDICINE HEPATOBILIARY SCINTIGRAPHY (HIDA SCAN) WITH EJECTION FRACTION. 10/12/2019 TECHNIQUE: Approximately 5.8 millicuries Tc99m Mebrofenin (Choletec) was administered IV. Then, dynamic images of the abdomen were obtained in the anterior projection for 60 mins. A right lateral view was also obtained at 60 mins. Slow infusion of 1.37 mcg cholecystokinin was administered intravenously over 30-60 mins. Images were obtained in the SHANTI projection and regions of interest were drawn around the gallbladder and ejection fraction was calculated. COMPARISON: CT 05/12/2015 HISTORY: ORDERING SYSTEM PROVIDED HISTORY: Intractable nausea and vomiting TECHNOLOGIST PROVIDED HISTORY: Is the patient ?->No Reason for Exam: Intractable nausea and vomiting Acuity: Unknown Type of Exam: Unknown FINDINGS: Prompt, homogenous uptake by the liver is noted with normal appearance of radiotracer excretion into the biliary system. Clearance of bloodpool activity appears appropriate. Gallbladder and small bowel is visualized in appropriate sequence and time. Gallbladder ejection fraction measured 86%. Normal value is >38% for CCK protocol and >33% for Ensure protocol. Note, Ensure normal range is based on a limited study. [place], [place] James, Mhpn Incoming R adiant Results From X[facility]/Pacs - 10/12/2019 2:56 PM EDT EXAMINATION: NUCLEAR MEDICINE HEPATOBILIARY SCINTIGRAPHY (HIDA SCAN) WITH EJECTION FRACTION. 10/12/2019 TECHNIQUE: Approximately 5.8 millicuries Tc99m Mebrofenin (Choletec) was administered IV. Then, dynamic images of the abdomen were obtained in the anterior projection for 60 mins. A right lateral view was also obtained at 60 mins. Slow infusion of 1.37 mcg cholecystokinin was administered intravenously over 30-60 mins. Images were obtained in the SHANTI projection and regions of interest were drawn around the gallbladder and ejection fraction was calculated. COMPARISON: CT 05/12/2015 HISTORY: ORDERING SYSTEM PROVIDED HISTORY: Intractable nausea and vomiting TECHNOLOGIST PROVIDED HISTORY: Is the patient ?->No Reason for Exam: Intractable nausea and vomiting Acuity: Unknown Type of Exam: Unknown FINDINGS: Prompt, homogenous uptake by the liver is noted with normal appearance of radiotracer excretion into the biliary system. Clearance of bloodpool activity appears appropriate. Gallbladder and small bowel is visualized in appropriate sequence and time. Gallbladder ejection fraction measured 86%. Normal value is >38% for CCK protocol and >33% for Ensure protocol. Note, Ensure normal range is based on a limited study. IMPRESSION: No convincing scintigraphic evidence of acute or chronic cholecystitis. [place], [place] HEPATOBILIARY SCAN W PHAR MACOLOGICAL INTERVENTIONon 10-12-2019 NM HEPATOBILIARY SCAN W PHARMACOLOGICAL INTERVENTION EXAMINATION: NUCLEAR MEDICINE HEPATOBILIARY SCINTIGRAPHY (HIDA SCAN) WITH EJECTION FRACTION. 10/12/2019 TECHNIQUE: Approximately 5.8 millicuries Tc99m Mebrofenin (Choletec) was administered IV. Then, dynamic images of the abdomen were obtained in the anterior projection for 60 mins. A right lateral view was also obtained at 60 mins. Slow infusion of 1.37 mcg cholecystokinin was administered intravenously over 30-60 mins. Images were obtained in the SHANTI projection and regions of interest were drawn around the gallbladder and ejection fraction was calculated. COMPARISON: CT 05/12/2015 HISTORY: ORDERING SYSTEM PROVIDED HISTORY: Intractable nausea and vomiting TECHNOLOGIST PROVIDED HISTORY: Is the patient ?->No Reason for Exam: Intractable nausea and vomiting Acuity: Unknown Type of Exam: Unknown FINDINGS: Prompt, homogenous uptake by the liver is noted with normal appearance of radiotracer excretion into the biliary system. Clearance of bloodpool activity appears appropriate. Gallbladder and small bowel is visualized in appropriate sequence and time. Gallbladder ejection fraction measured 86%. Normal value is >38% for CCK protocol and >33% for Ensure protocol. Note, Ensure normal range is based on a limited study. IMPRESSION: No convincing scintigraphic evidence of acute or chronic cholecystitis. Interpreted by: Niraj Covarrubias MD Signed by: Niraj Covarrubias MD 10/12/19 Final result Normal [facility] H. pylori urease IDon 2019 H. pylori urease ID Specimen Description .TISSUE, [place] [id number] EXP 04/05/20 Direct Exam NEGATIVE Report Status FINAL 10/06/2019 Normal [facility] Comment on above: Performed By: #### H JOELLE #### [facility] [address] [place] [address] Science Interpreter: [place] [address] Science Interpreter: Omar Segundo MD OPERATIVE REPORTon 0 OPERATIVE REPORT [address] [id number] OPERATIVE REPORT PATIENT NAME: LULÚ GAITAN : 1995 MED REC NO: [id number] ROOM: ACCOUNT NO: [id number] ADMIT DATE: 10/05/2019 PROVIDER: Toño Blanc Jr DATE OF PROCEDURE: 10/05/2019 PREOPERATIVE DIAGNOSES: Nausea, vomiting, abdominal pain. POSTOPERATIVE DIAGNOSIS: Some mild gastritis. OPERATION PERFORMED: Esophagogastroduodenoscopy. ENDOSCOPIST: Toño Blanc Jr., MD INDICATIONS: A 24-year-old white female who was seen in my office complaining of a lot of abdominal pain and nausea and vomiting. She is brought in now for upper GI endoscopy. FINDING AND DESCRIPTION OF PROCEDURE: She was positioned in left lateral decubitus position. Throat was sprayed with 4% Cetacaine and then a flexible scope was passed through the cricopharyngeus down the esophagus through the stomach into the duodenum to 1 meter. Careful withdrawal of the scope did not demonstrate any major pathology in the duodenum. There was evidence of mild gastritis in the antrum of the stomach. Retroflexion did not show any major neoplastic nor inflammatory lesions in the body nor the fundus of the stomach. The lower esophagus was widely patent. Random biopsies were taken from the antrum and a CLOtest was taken. Further withdrawal of the scope back to the GE junction did not show any major evidence for Barrette's change nor major inflammatory changes at the GE junction or in the esophagus. The lumen of the esophagus appeared normal. The patient generally tolerated this procedure well and was taken to recovery after its completion in satisfactory condition. TOÑO BLANC JR TRUDI/Susy_ISWIS_I Doc#: [id number] CC: Lisseth Blanc Jr Normal [facility] POCT urine pregnancyon 10-04 Beta HCG ( test) Ql (U) Negative NEG [place] Comment on above: Specimens with hCG l evels near the threshold of the test (25 mIU/mL) may give a negative or indeterminate result. In such cases, another test should be performed with a new specimen in 48-72 hours. If early is suspected clinically in this setting, correlation with quantitative serum b-hCG level is suggested. [id number] 10-05-2019 SARS-CoV-2 Not Detected Normal Not Detected [facility] Comment on above: Result Comment: (NOT E) The [employer] Real[employer] SARS-CoV-2 assay is a real-time (rt) reverse transcriptase (RT) polymerase chain reaction (PCR) test intended for the [employer] system. The SARS-CoV-2 primer and probe sets are designed to detect RNA from SARS-CoV-2 in nasopharyngeal (BINDER CASER) and oropharyngeal (OP) swabs from patients with signs and symptoms of infection who are suspected of COVID-19. Results are for the identification of SARS-CoV-2 RNA. The SARS-CoV-2 RNA is generally detectable in a nasopharyngeal and oropharyngeal swabs during the acute phase of infection. The [employer] RealTime SARS-CoV-2 assay is intended for use by qualified and trained clinical laboratory personnel specifically instructed and trained in the techniques of real-time PCR and in vitro diagnostic procedures. The [employer] RealTime SARS-CoV-2 assay is only for use under the Food and Drug Administration Emergency Use Authorization. Testing is limited to laboratories certified under the Clinical Laboratory Improvement Amendments of 1988 (CLIA), 42 U.S.C. 263a, to perform high complexity tests. Not Detected: Not detected does not preclude SARS-CoV-2 infection and should not be used as the sole basis for patient management decisions. Not detected results must be combined with clinical observations, patient history, and epidemiological information. The above 1 analytes were performed by [facility] [address] [place] [address] Performed By: #### C OVID #### [facility] [address] [place] [address] Science Interpreter: Samson Martinez DO [facility] [address] [place] [address] Science Interpreter: Omar Segundo MD [facility] [address] [place] [address] Science Interpreter: Bill Jolly MD Surgical Pathologyon 020 Surgical Pathology (NOTE) -- Diagnosis -- 1. GASTRIC ANTRUM BIOPSIES: MILD CHRONIC INACTIVE GASTRITIS. 2. DISTAL ESOPHAGUS BIOPSIES: NORMAL SQUAMOUS MUCOSA. GASTRIC MUCOSA WITH MILD CHRONIC INACTIVE INFLAMMATION; NEGATIVE FOR INTESTINAL/GOBLET CELL METAPLASIA AND GLANDULAR DYSPLASIA. Yolette Bravo Electronically Signed Out ajb/10/08/2019 Clinical Information Pre-op Diagnosis: NAUSEA, VOMITING Operative Findings: GASTRIC ANTRUM BIOPSY, DISTAL ESOPHAGUS Operation Performed: EGD Source of Specimen 1: GASTRIC ANTRUM BIOPSY 2: DISTAL ESOPHAGUS Gross Description 1. LULÚ GAITAN, GASTRIC ANTRUM BIOPSY Four pink weiss tissue fragments ranging in size from 0.4 to 0.5 cm. and form in aggregate measuring 0.9 x 0.4 x 0.3 cm. 1ns 2. LULÚ GAITAN, DISTAL ESOPHAGUS Two weiss white tissue fragments each measuring 0.3 x 0.2 x 0.2 cm. and form in aggregate measuring 0.4 x 0.3 x 0.2 cm. 1ns mpb/dw Microscopic Description 1. Gastric mucosa is mild chronic inactive inflammation. There is no evidence of Helicobacter pylori gastritis, intestinal metaplasia, dysplasia or malignancy. 2. Microscopic examination performed. SURGICAL PATHOLOGY CONSULTATION Patient Name: LULÚ GAITAN [facility] Rec: [id number] Path Number: [id number] [facility] ANATOMIC PATHOLOGY [address] [place] [phone] [facility] Comment on above: Performed By: #### P PPVS #### [address] [address] Science Interpreter: Omar Segundo MD [id number] 10-03-2019 SARS-CoV-2,Rapid [facility] Comment on above: Performed By: #### C OVID #### [facility] [address] [place] [address] Science Interpreter: Samson Martinez DO [address] [address] Science Interpreter: Omar Segundo MD [facility] [address] [place] [address] Science Interpreter: Bill Jolly MD SARS-CoV-2 [facility] Comment on above: Performed By: #### C OVID #### [facility] [address] [place] [address] Science Interpreter: Samson Martinez DO [address] [address] Science Interpreter: Omar Segundo MD [facility] [address] [place] [address] Science Interpreter: Bill Jolly MD SARS-CoV-2 Source .NASOPHARYNGEAL SWAB [facility] Comment on above: Performed By: #### C OVID #### [facility] [address] [place] [address] Science Interpreter: Samson Martinez DO [facility] [place], [place] [id number] Science Interpreter: Omar Segundo MD [facility] [address] [place] [address] Science Interpreter: Bill Jolly MD XR ABDOMEN (KUB) (SINGLE AP VIEW)on 02-08-2019 Nonspecific nonobstr uctive bowel gas pattern. No definite calcified urinary tract stones are seen. [place], [place] EXAMINATION: ONE SUP INE XRAY VIEW(S) OF THE ABDOMEN 02/08/2019 2:14 pm COMPARISON: 05/08/2015 HISTORY: ORDERING SYSTEM PROVIDED HISTORY: Gross hematuria TECHNOLOGIST PROVIDED HISTORY: gross hematuria FINDINGS: Slight levoconvex curvature lumbar spine. No acute osseous abnormality is seen. There is an apparent IUD in the pelvis to the right of midline. Although the kidneys are partially obscured by by bowel content no definite calcified urinary tract stones are seen within limits of the exam. Mild fecal stasis in the colon with a nonspecific nonobstructive bowel gas pattern. No unusual calcifications. [place], [place] James, Mhpn Incoming R adiant Results From [facility]/Arideass - 02/08/2019 4:29 PM EDT EXAMINATION: ONE SUPINE XRAY VIEW(S) OF THE ABDOMEN 02/08/2019 2:14 pm COMPARISON: 05/08/2015 HISTORY: ORDERING SYSTEM PROVIDED HISTORY: Gross hematuria TECHNOLOGIST PROVIDED HISTORY: gross hematuria FINDINGS: Slight levoconvex curvature lumbar spine. No acute osseous abnormality is seen. There is an apparent IUD in the pelvis to the right of midline. Although the kidneys are partially obscured by by bowel content no definite calcified urinary tract stones are seen within limits of the exam. Mild fecal stasis in the colon with a nonspecific nonobstructive bowel gas pattern. No unusual calcifications. IMPRESSION: Nonspecific nonobstructive bowel gas pattern. No definite calcified urinary tract stones are seen. [place] Urinalysis with Microscopico n 02-06-2019 Amorphous, UA NOT REPORTED None [place], [place] Bacteria, UA TRACE Abnormal None [place], [place] Bilirubin Urine Negative NEGATIVE [place] Casts UA NOT REPORTED /LPF [place] Color, UA YELLOW YELLOW [place], [place] Crystals UA NOT REPORTED None /HPF [place], [place] Epithelial Cells UA 2 TO 5 [place], [place] Glucose, Ur Negative NEGATIVE [place] Interpretation and review of laboratory results Abnormal [place], [place] Ketones Ql (U) Negative NEGATIVE [place] Leukocyte esterase Test stri p Ql (U) Negative NEGATIVE [place], [place] Mucus, UA 1+ Abnormal None [place], [place] Nitrite, Urine Negative NEGATIVE [place] Other Observations UA NOT REPORTED NOT REQ. M [place], [place] pH, UA 7.0 [place], [place] Protein (U) [Mass/Vol] Negative NEGATIVE [place], [place] RBC (U) [#/Vol] 0 TO 2 [place] Renal Epithelial, Urine NOT REPORTED 0 /HPF [place], [place] Specific [place], UA 1.020 [place], [place] Trichomonas, UA NOT REPORTED None [facility] [place] Turbidity UA CLEAR CLEAR [place] Urinalysis Comments NOT REPORTED [place] Urine Hgb TRACE Abnormal NEGATIVE [place], [place] Urobilinogen, Urine Normal Normal [place], [place] WBC, UA 0 TO 2 [place], [place] Yeast, UA NOT REPORTED None [place] - [place], [place] Wet prep, genitalon 02-07-20 19 Direct Exam NO TRICHOMONAS SEEN [place] Direct Exam YEAST [place], [place] Direct Exam CLUE CELLS SEEN Abnormal [place] Interpretation and review of laboratory results Abnormal [place], [place] Special Requests NOT REPORTED [place], [place] Specimen Description .VAGINA [place] Vital Signs Date Time Vital Sign Value Performing Clinician Facility 05-10-2023 11:11-0500 Diastolic blood pressure 78 mm[Hg] Rishi ROLANDO [facility] 05-10-2023 11:11-0500 Heart rate 72 /min Rishi MARSHALL [facility] 05-10-2023 11:11-0500 Systolic blood pressure 117 mm[Hg] Rishi MARSHALL [facility] 04-27-2023 13:30-0500 Body height 166.37 cm Imad Asaad Other [facility] Other 04-27-2023 13:30-0500 Body mass index (BMI) [Ratio] 25.71 kg/m2 Imad Asaad Other [facility] Other 04-27-2023 13:30-0500 Body weight 71.17 kg Imad Asaad Other [facility] Other 02-11-2023 18:20-0400 Body height 166.37 cm Sarah Anderson Other [facility] Other 02-11-2023 18:20-0400 Body mass index (BMI) [Ratio] 27.69 kg/m2 Sarah Anderson Other [facility] Other 02-11-2023 18:20-0400 Body temperature 98.1 [degF] Sarah Anderson Other [facility] Other 02-11-2023 18:20-0400 Body weight 76.66 kg Sarah Monica Other [facility] Other 02-11-2023 18:20-0400 Diastolic blood pressure 78 mm[Hg] Sarah Anderson Other [facility] Other 02-11-2023 18:20-0400 Respiratory rate 18 /min Sarah Anderson Other [employer] [facility] [employer] Other 02-11-2023 18:20-0400 SaO2% (BldA) [Mass fraction] 99 % Sarah Anderson Other [facility] [employer] Other 02-11-2023 18:20-0400 Systolic blood pressure 116 mm[Hg] Sarha Anderson Other [facility] [employer] Other 02-06-2023 07:30-0400 Body temperature 98.1 [degF] DO Matthew Miltons Work Phone: [facility] 02-06-2023 07:30-0400 Diastolic blood pressure 60 mm[Hg] DO Matthew Farmerhas Work Phone: [facility] 02-06-2023 07:30-0400 Heart rate 83 /min DO Matthew Farmerhas Work Phone: [facility] 02-06-2023 07:30-0400 Respiratory rate 18 /min DO Matthew Farmerhas Work Phone: [facility] 02-06-2023 07:30-0400 SaO2% (BldA) [Mass fraction] 97 % DO Matthew Marlenyhas Work Phone: [facility] 02-06-2023 07:30-0400 Systolic blood pressure 102 mm[Hg] DO Matthew Marlenyhas Work Phone: [facility] 02-03-2023 14:17-0400 Body height 165.1 cm DO Matthew Yuhas Work Phone: [facility] [facility] 02-02-2023 23:53-0400 Body weight 74.15 kg DO Matthew Yuhas Work Phone: [facility] 06-30-2022 23:12-0500 Diastolic blood pressure 56 mm[Hg] Courtney Hernandez MD Work Phone: [employer] 06-30-2022 23:12-0500 Heart rate 88 /min Courtney Hernandez MD Work Phone: [employer] 06-30-2022 23:12-0500 Respiratory rate 16 /min Courtney Hernandez MD Work Phone: [facility] [employer] 06-30-2022 23:12-0500 Systolic blood pressure 100 mm[Hg] Courtney Hernandez MD Work Phone: [employer] 06-30-2022 22:21-0500 Body height 165.1 cm Courtney Hernandez MD Work Phone: [employer] 06-30-2022 21:13-0500 SaO2% (BldA) [Mass fraction] 98 % Courtney Hernandez MD Work Phone: [employer] 06-30-2022 18:31-0500 Body mass index (BMI) [Ratio] 28.96 kg/m2 Courtney Hernandez MD Work Phone: [employer] 06-30-2022 18:31-0500 Body weight 78.93 kg Courtney Hernandez MD Work Phone: [employer] 06-30-2022 18:27-0500 Body temperature 98.4 [degF] Courtney Hernandez MD Work Phone: [employer] 06-17-2022 17:10-0500 Diastolic blood pressure 65 mm[Hg] [facility] [employer] 06-17-2022 17:10-0500 Systolic blood pressure 114 mm[Hg] [facility] [employer] 06-17-2022 17:10-0500 Systolic blood pressure 110 mm[Hg] Bridgette Ortega [place] [employer] 06-17-2022 17:00-0500 Body height 166.37 cm Bridgette Ortega [facility] [employer] 06-17-2022 17:00-0500 Body mass index (BMI) [Ratio] 28.43 kg/m2 [employer]idget[employer] 06-17-2022 17:00-0500 Body surface area Derived from formula 1.91 m2 Bridgette Ortega [employer] 06-17-2022 17:00-0500 Body weight 78.7 kg Bridgette [email or web address] 06-17-2022 17:00-0500 Body weight 0.1 {percentile} Bridgette [employer] 06-17-2022 17:00-0500 Diastolic blood pressure 70 mm[Hg] Bridgette [employer] 06-17-2022 17:00-0500 Heart rate 72 /min Bridgette [email or web address] 06-17-2022 17:00-0500 Systolic blood pressure 118 mm[Hg] Bridgette [employer] 06-15-2022 17:35-0500 Body temperature 98.1 [degF] Maricel Stafford [employer] 06-15-2022 17:35-0500 Body weight 77.57 kg Maricel Stafford [email or web address] 06-15-2022 17:35-0500 Diastolic blood pressure 62 mm[Hg] Maricel [employer] 06-15-2022 17:35-0500 Heart rate 80 /min Maricel [employer] 06-15-2022 17:35-0500 Respiratory rate 16 /min Maricel [employer] 06-15-2022 17:35-0500 Systolic blood pressure 110 mm[Hg] Maricel [employer] 05-17-2022 11:45-0500 SaO2% (BldA) [Mass fraction] 98 % Maricel [employer] 05-17-2022 10:59-0500 Body height 166.37 cm Maricel [employer] 05-17-2022 10:59-0500 Body mass index (BMI) [Ratio] 28.19 kg/m2 [employer] 05-17-2022 10:59-0500 Body surface area Derived from formula 1.9 m2 [employer] 05-17-2022 10:59-0500 Body temperature 98.5 [degF] [employer] 05-17-2022 10:59-0500 Body weight 78.02 kg [employer] 05-17-2022 10:59-0500 Body weight 0.1 {percentile} [employer] 05-17-2022 10:59-0500 Diastolic blood pressure 60 mm[Hg] [employer] 05-17-2022 10:59-0500 Heart rate 90 /min [employer] 05-17-2022 10:59-0500 Respiratory rate 18 /min [employer] 05-17-2022 10:59-0500 Systolic blood pressure 112 mm[Hg] [employer] 02-10-2022 20:45-0400 Diastolic blood pressure 64 mm[Hg] DO Matthew Lemus Work Phone: [facility] 02-10-2022 20:45-0400 Heart rate 81 /min DO Matthew Lemus Work Phone: [facility] 02-10-2022 20:45-0400 Respiratory rate 16 /min DO Matthew Lemus Work Phone: [facility] 02-10-2022 20:45-0400 SaO2% (BldA) [Mass fraction] 99 % DO Matthew Lemus Work Phone: [facility] 02-10-2022 20:45-0400 Systolic blood pressure 100 mm[Hg] DO Matthew Lemus Work Phone: [facility] 02-10-2022 14:17-0400 Body height 165.1 cm DO Matthew Lemus Work Phone: [facility] 02-10-2022 14:17-0400 Body weight 81.64 kg DO Matthew Lemus Work Phone: [facility] 02-09-2022 10:01-0400 Body height 166.37 cm Kaleigh [employer] 02-09-2022 10:01-0400 Diastolic blood pressure 64 mm[Hg] Kaleigh [employer] 02-09-2022 10:01-0400 Heart rate 120 /min Kaleigh Guevara [email or web address] 02-09-2022 10:01-0400 Systolic blood pressure 118 mm[Hg] Kaleigh Guevara [email or web address] 01-29-2022 11:30-0400 Body height 166.37 cm Bridgette Ortega [facility] [employer] 01-29-2022 11:30-0400 Diastolic blood pressure 62 mm[Hg] Bridgette Ortega [employer] 01-29-2022 11:30-0400 Heart rate 100 /min Bridgette Ortega [employer] 01-29-2022 11:30-0400 Systolic blood pressure 114 mm[Hg] Bridgette Lewis [facility] 01-25-2022 10:30-0400 Body height 166.37 cm Tae Buehrer Other [employer] Other 01-25-2022 10:30-0400 Body mass index (BMI) [Ratio] 29.49 kg/m2 Tae Buehrer Other [employer] Other 01-25-2022 10:30-0400 Body temperature 97.8 [degF] Tae Buehrer Other [employer] Other 01-25-2022 10:30-0400 Body weight 81.65 kg Tae Buehrer Other [employer] Other 01-25-2022 10:30-0400 Diastolic blood pressure 64 mm[Hg] Tae Buehrer Other [employer] Other 01-25-2022 10:30-0400 SaO2% (BldA) [Mass fraction] 99 % Tae Buehrer Other [employer] Other 01-25-2022 10:30-0400 Systolic blood pressure 110 mm[Hg] Tae Buehrer Other [employer] Other 01-19-2022 10:59-0400 Body height 166.37 cm Bridgette Ortega [employer] 01-19-2022 10:59-0400 Body mass index (BMI) [Ratio] 29.5 kg/m2 Bridgette Ortega [employer] 01-19-2022 10:59-0400 Body surface area Derived from formula 1.94 m2 Bridgette Ortega [employer] 01-19-2022 10:59-0400 Body weight 81.65 kg Bridgette Ortega [employer] 01-19-2022 10:59-0400 Diastolic blood pressure 72 mm[Hg] Bridgette Ortega [employer] 01-19-2022 10:59-0400 Heart rate 112 /min Bridgette Ortega [employer] 01-19-2022 10:59-0400 Systolic blood pressure 114 mm[Hg] Bridgette [employer] 10-11-2021 18:26-0400 Diastolic blood pressure 77 mm[Hg] Matthew Lemus Work Phone: [employer] 10-11-2021 18:26-0400 Systolic blood pressure 130 mm[Hg] Matthew Lemus Work Phone: [employer] 10-11-2021 14:00-0400 Body mass index (BMI) [Ratio] 28.46 kg/m2 Matthew Lemus Work Phone: [employer] 10-11-2021 14:00-0400 Body temperature 97.81 [degF] Matthew Lemus Work Phone: [employer] 10-11-2021 14:00-0400 Body weight 77.56 kg Matthew Lemus Work Phone: [employer] 10-11-2021 14:00-0400 Heart rate 95 /min Matthew [employer] Work Phone: [employer] 10-11-2021 14:00-0400 Respiratory rate 16 /min Matthew Lemus Work Phone: [employer] 10-11-2021 14:00-0400 SaO2% (BldA) [Mass fraction] 98 % Matthew Lemus Work Phone: [facility] [employer] 09-29-2021 13:04-0400 Blood Pressure Location Rishimaricel MARSHALL [facility] Nancy 09-29-2021 13:04-0400 Diastolic blood pressure 83 mm[Hg] Rishi MARSHALL [facility] 09-29-2021 13:04-0400 Heart rate 100 /min Rishimaricel MARSHALL [facility] 09-29-2021 13:04-0400 Systolic blood pressure 124 mm[Hg] Rishi [facility]SHALL [facility] 09-04-2021 09:22-0400 Blood Pressure Location Rishimaricel [facility] 09-04-2021 09:22-0400 Diastolic blood pressure 67 mm[Hg] Rishi [facility]ALL [facility] 09-04-2021 09:22-0400 Heart rate 78 /min Rishi [facility]SHALL [facility] 09-04-2021 09:22-0400 Respiratory rate 16 /min Rishi [facility]ALL [facility] 09-04-2021 09:22-0400 Systolic blood pressure 97 mm[Hg] Rishi MARSHALL [facility] Dina 03-16-2020 15:12-0400 BMI (Body Mass Index) 25.96 kg/m2 Catracho Parisi [facility] [place] 03-16-2020 15:12-0400 Body Temperature 99 [degF] [facility] [place] 03-16-2020 15:12-0400 Body weight 70.76 kg [facility] [place] 03-16-2020 15:12-0400 BP Diastolic 69 mm[Hg] [facility] [place] 03-16-2020 15:12-0400 BP Systolic 125 mm[Hg] [facility] [place] 03-16-2020 15:12-0400 Pulse (Heart Rate) 77 /min [facility] [place] 03-16-2020 15:12-0400 Pulse Oximetry 99 % [facility] [place] 03-16-2020 15:12-0400 Respiratory Rate 18 /min Catracho Parisi [facility] [place] 10-05-2019 13:30-0400 Body Temperature 98.1 [degF] [facility] 10-05-2019 13:30-0400 BP Diastolic 72 mm[Hg] [facility] , [place] 10-05-2019 13:30-0400 BP Systolic 110 mm[Hg] [facility] [place] 10-05-2019 13:30-0400 Pulse (Heart Rate) 76 /min [facility] 10-05-2019 13:30-0400 Pulse Oximetry 100 % [facility] [place] 10-05-2019 13:30-0400 Respiratory Rate 18 /min [facility] 10-05-2019 10:26-0400 BMI (Body Mass Index) 24.37 kg/m2 [facility] 10-05-2019 10:26-0400 Body weight 68.49 kg [facility] , [place] 10-05-2019 10:26-0400 Height 167.6 cm [facility] [place] , [place] Encounters Encounter Date Encounter Type Care Provider Facility Start: 09-27-2023 ambulatory Rishi Augie MARSHALL Facili ty:[facility] [place] Start: 05-12-2023 End: 05-12-2023 ambulatory Imad Asaad Facility:[facility] Start: 05-12-2023 End: 05-12-2023 ambulatory DO Matthew Lemus Work Phone: [facility] Work Phone: Start: 05-12-2023 End: 05-12-2023 Patient encounter procedure DO Matthew Lemus Work Phone: [facility] [place] Work Phone: Start: 05-10-2023 End: 05-11-2023 ambulatory Rishimaricel MARSHALL Facility:[facility] [place] Start: 05-10-2023 End: 05-10-2023 Patient encounter procedure Rishimaricel MARSHALL [facility] Start: 04-27-2023 End: 04-27-2023 ambulatory Imad Asaad Other [employer] Other Start: 04-27-2023 Office outpatient ne w 45 minutes Imad Asaad [facility] Start: 04-14-2023 End: 04-15-2023 ambulatory Rishi MARSHALL Facility:[id number] Start: 03-10-2023 End: 03-10-2023 Emergency department patient visit [facility] Start: 02-11-2023 End: 02-11-2023 ambulatory Sarah Anderson Other [employer] Other Start: 02-11-2023 Office outpatient visit 15 minutes Sarah Anderson [facility] Start: 02-03-2023 Telephone encounter Christine Macias DO Work Phone: Gastroenterology Comment on above: Appointment Start: 02-02-2023 End: 02-06-2023 Evaluation and management of inpatient Matthew Lemus Facility:[facility] Start: 02-02-2023 End: 02-06-2023 Evaluation and management of inpatient DO Matthew Lemus Work Phone: [facility] Work Phone: Start: 02-02-2023 ambulatory Matthew Lemus Facility:[facility] Start: 09-23-[address] CASEY DAVIDSON . Facili ty:[facility] Start: 09-16-2022 End: 09-16-[address] BRIDGETTE KRAUSE . Facility:[facility] Start: 09-04-2022 End: 09-04-2022 ambulatory CHUY MCNAMARA Facility:[facility] Start: 08-30-2022 End: 08-31-[address] CASEY DAVIDSON . Facility:[facility] Start: 08-17-2022 End: 08-18-[address] CASEY DAVIDSON . Facility:[facility] Start: 08-10-2022 End: 08-11-2022 ambulatory CASEY DAVIDSON [facility] Start: 07-21-2022 End: 07-21-[address] CASEY DAVIDSON . Facility:[facility] Start: 07-20-2022 End: 07-21-[address] CASEY DAVIDSON . Facility:[facility] Start: 07-06-2022 End: 07-06-[address] MATTHEW LEMUS Facility:[facility] Start: 06-30-2022 End: 07-01-2022 ambulatory BRIDGETTE LEWIS [facility] Start: 06-30-2022 End: 07-01-2022 Emergency department patient visit Courtney [facility] MD [facility] Comment on above: Hyperemesis (Primary Dx); Pelvic cramping Start: 06-22-2022 End: 06-22-2022 ambulatory AUDELIA HOBBS . Facility:[facility] Start: 06-21-2022 Office Services Bridgette lindsay Other [facility] Start: 06-18-2022 Office Services Bridgette lindsay Other [facility] Start: 06-17-2022 Office outpatient vi sit 15 minutes Bridgette Lewis Other [facility] Start: 06-15-2022 Office outpatient vi sit 15 minutes Maricel Stafford Other [facility] Start: 06-15-2022 Office Services Maricel Stafford Other [facility] Start: 06-09-[address] MATTHEW LEMUS Facility: [facility] Start: 06-05-2022 End: 06-06-[address] MATTHEW LEMUS Facility:[facility] Start: 05-26-2022 End: 05-27-[address] MATTHEW LEMUS Facility:[facility] Start: 05-17-2022 Office consultation new/estab patient 60 min Maricel Stafford Other [facility] Start: 04-30-2022 End: 05-01-[address] MATTHEW LEMUS Facility:[facility] Start: 04-08-2022 End: 04-09-[address] MATTHEW LEMUS Facility:[facility] Start: 03-29-2022 Lab Bridgette lindsay Other [facility] Start: 03-22-2022 End: 03-23-[address] MATTHEW LEMUS Facility:[facility] Start: 03-17-2022 Lab Kaleigh Hernandez ams Other [facility] Start: 03-03-2022 End: 03-04-[address] MATTHEW LEMUS Facility:[facility] Start: 02-10-2022 End: 02-10-2022 Admission to same day surgery center DO Matthew Lemus Work Phone: [facility]-Interventional Radiology Start: 02-09-2022 Patient encounter procedure Kaleigh Guevara [email or web address] Start: 02-09-2022 Periodic preventive med est patient 18-39 yrs Kaleigh Guevara Other [facility] Start: 02-04-2022 Encounter for genera l adult medical examination without abnormal findings Bridgette Lewis [email or web address] Start: 02-04-2022 Lab Bridgette lindsay Other [facility] Start: 02-04-2022 Office Services Kaleigh Hernandez ams Other [facility] Start: 01-29-2022 Office outpatient vi sit 15 minutes Bridgette Lewis Other [facility] Office Start: 01-25-2022 End: 01-25-2022 ambulatory Tae Natarajan Other [employer] Other Start: 01-25-2022 Office outpatient ne w 45 minutes Tae Natarajan [facility] Vascular Surgery Start: 01-19-2022 Office outpatient ne w 30 minutes Bridgette Lewis Other [facility] Office Start: 12-17-2021 Encounter for genera l adult medical examination without abnormal findings [facility] Start: 12-04-2021 End: 12-05-[address] MATTHEW LEMUS Facility:[facility] Start: 11-14-2021 End: 11-14-[address] MATTHEW LEMUS Facility:[facility] Start: 10-12-2021 End: 10-12-2021 Subsequent hospital visit by physician Matthew Lemus Work Phone: [facility] Laboratory Start: 10-11-2021 End: 10-11-2021 Emergency department patient visit Matthew Lemus Work Phone: [facility] ED Comment on above: Lower abdominal pain (Primary Dx) Start: 10-09-2021 End: 10-10-[address] MATTHEW LEMUS Facility:[facility] Start: 09-29-2021 End: 09-29-2021 Patient encounter procedure Rishi MARSHALL [facility] Start: 09-04-2021 End: 09-04-2021 Patient encounter procedure Rishi MARSHALL [facility] [place] Start: 03-16-2020 End: 03-16-2020 Emergency department patient visit Catracho Parisi Work Phone: [facility] ED Comment on above: Viral URI with cough (Primary Dx) Start: 03-07-2020 End: 03-07-2020 Subsequent hospital visit by physician Sona Covid Screening Schedule SONA Covcintia Screening Comment on above: Acute frontal sinusi tis, recurrence not specified Start: 03-03-2020 End: 03-03-2020 Subsequent hospital visit by physician Lisseth MAGALLANES Laboratory Comment on above: Gross hematuria Start: 10-12-2019 End: 10-15-2019 Patient encounter procedure [facility] Start: 10-12-2019 End: 10-14-2019 Subsequent hospital visit by physician Juan A Laguerre Room 2 [facility] Nuclear Medicine Comment on above: Intractable nausea a nd vomiting Start: 10-05-2019 End: 10-05-2019 Patient encounter procedure [facility] Start: 10-05-2019 End: 10-05-2019 Subsequent hospital visit by physician Toño Blanc Work Phone: [facility] Start: 10-03-2019 End: 10-04-2019 Patient encounter procedure BRIANA RUBIO [facility] Start: 10-03-2019 End: 10-03-2019 Subsequent hospital visit by physician Lisseth [place] [facility] Start: 10-02-2019 End: 10-02-2019 Subsequent hospital visit by physician Tonio Covcintia19 Pat Screening Schedule [facility] Pre-Admit Testing Comment on above: No Show Start: 02-08-2019 End: 02-10-2019 Subsequent hospital visit by physician Khalida Grey Dr Room 2 [facility] Comment on above: Gross hematuria; Urgency of urination Start: 02-06-2019 End: 02-06-2019 Subsequent hospital visit by physician Lisseth MAGALLANES Laboratory Comment on above: Gross hematuria; Urgency of urination Start: 01-15-2019 End: 01-15-2019 Subsequent hospital visit by physician Lisseth MAGALLANES Laboratory Comment on above: Dysuria; Gross hematuria Procedures Date Procedure Procedure Detail Performing Clinician Start: 12-14-2023 Computed tomography of abdomen and pelvis with contrast DO Matthew Lemus Work Phone: Start: 05-10-2023 Removal of stent Rishi MARSHALL Start: 02-02-2023 Urine culture DO Matthew Lemus Work Phone: Start: 06-30-2022 Urinalysis microscopic only Courtney Hernandez MD Work Phone: Start: 06-30-2022 Urnls dip stick/tablet rgnt auto w/o microscopy Courtney Hernandez MD Work Phone: Start: 06-30-2022 Blood typing serologic abo Courtney Hernandez MD Work Phone: Start: 06-30-2022 End: 06-30-2022 Comprehensive metabolic panel Courtney Rainey dd, MD Work Phone: Start: 06-18-2022 Infusion of saline solution Birdgette lindsay Start: 06-18-2022 Normal saline solution infus Bridgette mcarthur Start: 06-17-2022 Blood chemistry Bridgette Lewis Start: 06-17-2022 Basic metabolic panel calcium total Ravinder Lewis Start: 06-17-2022 Docrev cur meds by joey morales mcarthur Start: 06-17-2022 Erythrocyte mean corpuscular volume determination Bridgette Lewis Start: 06-17-2022 Urinalysis, automated Bridgette Lewis Start: 06-15-2022 Docrev cur meds by umair Stafford Start: 06-15-2022 Spirometry for bronchospasm with prolonged evaluation after bronchodilator Bridgette Lewis Start: 05-17-2022 Docrev cur meds by umair clin Maricel Stafford Start: 05-17-2022 Measurement of nitric oxide Maricel Stafford Start: 03-29-2022 Human chorionic gonadotropin measurement Maricel Stafford Start: 03-17-2022 Human chorionic gonadotropin measurement Bridgette Lewis Start: 02-10-2022 Abdominal aortogram DO Matthew Lemus Work Phone: Start: 02-09-2022 Docrev cur meds by eli clin Kaleigh de la vega Start: 02-04-2022 Comprehensive metabolic panel Kaleigh camp Start: 02-04-2022 Erythrocyte mean corpuscular volume determination Kaleigh Guevara Start: 02-04-2022 Lipid panel Kaleigh Guevara Start: 02-04-2022 Radiologic exam chest 2 views Bridgette sanford Start: 02-04-2022 Thyroid stimulating hormone measurement Kaleigh Guevara Start: 02-04-2022 Urinalysis, automated Kaleigh Guevara Start: 01-29-2022 Docrev cur meds by [facility] Bridgette mcarthur Start: 01-19-2022 Docrev cur meds by [facility] clin Bridgette mcarthur Start: 01-19-2022 Ketorolac tromethamine inj Bridgette Maricelrojelio tts Start: 01-19-2022 Therapeutic prophylactic/dx injection subq/im Bridgette Lewis Start: 01-05-2022 Skin test for tuberculosis, Bhumika test Start: 12-23-2021 Skin test for tuberculosis, Bhumika test Start: 10-12-2021 Gonadotropin chorionic quantitative Matthew Mendiola Mariah Work Phone: Start: 10-11-2021 Ct abdomen & pelvis w/contrast material [facility] Work Phone: Start: 10-11-2021 Assay of lipase [facility] Work Phone: Start: 10-11-2021 Urinalysis microscopic only [facility] Work Phone: Start: 10-11-2021 Urine test visual color cmprsn meths [facility] Work Phone: Start: 09-29-2021 Cystoscopy Rishi MARSHALL Start: 03-16-2020 Radiologic exam chest single view Neal Parisi Work Phone: Start: 03-03-2020 Urnls dip stick/tablet reagent auto microscopy Venancio Delgado Work Phone: Start: 10-12-2019 Hepatobil syst imag inc gb w/pharma intervenj TOÑO BLANC Start: 10-12-2019 Hepatobil syst imag inc gb w/pharma intervenj Toño Blanc Work Phone: Start: 10-05-2019 DISCHARGE PATIENT TOÑO BLANC Start: 10-05-2019 Hpylori breath anal urease act non-radact istope TOÑO BLANC Start: 10-05-2019 Level iv surg pathology gross&microscopic exam TOÑO BLANC Start: 10-05-2019 BEDREST TOÑO BLANC Start: 10-05-2019 Continuous pulse oximetry TOÑO MORALES N Start: 10-05-2019 ENCOURAGE DEEP BREATHING AND COUGHING TOÑO BLANC Start: 10-05-2019 INITIATE OXYGEN THERAPY PROTOCOL TOÑO BLANC Start: 10-05-2019 NOTIFY PHYSICIAN (SPECIFY) TOÑO CRUZ Start: 10-05-2019 NURSING COMMUNICATION TOÑO BLANC Start: 10-05-2019 VITAL SIGNS TOÑO BLANC Start: 10-05-2019 INSERT PERIPHERAL IV TOÑO BLANC Start: 10-05-2019 Urine test visual color cmprsn meths TOÑO BLANC Start: 10-05-2019 Urine test visual color cmprsn isais Toño Blanc Work Phone: Start: 10-02-2019 COVID-19 BRIANA JOANNE Start: 10-02-2019 COVID-19 BrianRojelio Rubio Work Phone: Start: 02-08-2019 Radiologic exam abdomen 1 view Usha Damico Work Phone: Start: 02-06-2019 Urnls dip stick/tablet reagent auto microscopy Usha Damico Work Phone: Start: 02-06-2019 Smr prim src wet mount nfct agt Usha Damico Work Phone: Endometrial ablation Rishi MARSHALL Esophagogastroduoden oscopy gastric outlet reduction Rishi MARSHALL Plan of Treatment Date Care Activity Detail Author Start: 04-09-2026 HIV screen HIV screen [facility] th- [place], [place] Comment on above: Postponed from 03/14 (Unavailable) Start: 04-09-2026 HIV screening HIV screen Adelenisla [facility] Comment on above: Postponed from 03/14 (Unavailable) Start: 11-10-2025 DTaP/Tdap/Td vaccine (5 - Td or Tdap) DTaP/Tdap/Td vaccine (5 - Td or Tdap) [facility] Start: 11-10-2025 DTaP/Tdap/Td vaccine (6 - Tdap) DTaP/Tdap/Td vaccine (6 - Tdap) [place], [place] Start: 02-06-2023 [facility] Start: 02-02-2023 Hospital admission [facility] Start: 01-28-2023 Influenza vaccination INFLUENZA (#1) [facility] Start: 08-09-2022 Lipid panel Lipid panel [email or web address] Start: 08-09-2022 Transferase alanine amino alt sgpt ALT [email or web address] Start: 08-09-2022 Transferase aspartat e amino ast sgot AST [email or web address] Start: 06-21-2022 Iv infusion hydratio n initial 31 min-1 hour IV HYDRATION,INITIAL,31 MINUTES TO 1 HOUR [email or web address] Start: 06-17-2022 Basic metabolic pane l calcium total Chem 8 [email or web address] Start: 06-15-2022 Brncdilat rspse spmt ry pre&post-brncdilat admn Spirometry with bronchodilator [email or web address] Start: 05-30-2022 DEPRESSION ASSESSMENT DEPRESSION ASS ESSMENT [facility] Start: 05-17-2022 Nitric oxide gas determination FENO [email or web address] Start: 04-03-2022 Depression Monitoring Depression Mon [facility] Start: 03-29-2022 Gonadotropin chorion ic quantitative Beta HCG Quantitative [email or web address] Start: 03-17-2022 Gonadotropin chorion ic quantitative Beta HCG Quantitative [email or web address] Start: 02-10-2022 [facility] Work Phone: Start: 02-04-2022 Assay of thyroid stimulating hormone tsh TSH [email or web address] Start: 02-04-2022 Blood count complete automated CBC PLATELET COUNT; AUTOMATED [place] [facility] Start: 02-04-2022 Comprehensive metabo lic panel Comp [employer] Start: 02-04-2022 Lipid panel Lipid panel [place] [facility] Start: 02-04-2022 Urnls dip stick/tabl et rgnt auto w/o microscopy [facility] [place] [facility] Start: 02-04-2022 Chest PA & LAT [facility] d [employer] Start: 01-19-2022 Therapeutic prophylactic/dx injection subq/im Sub Q/ IM injection [employer] Start: 12-28-2021 Influenza vaccination Flu vaccine (# 1) [facility] Start: 12-23-2021 Skin test tuberculos is intradermal PPD (Skin test; tuberculosis, intradermal) [employer] Start: 07-29-2021 COVID-19 Vaccine (3 - Booster for Pfizer series) COVID-19 Vaccine (3 - Booster for Pfizer series) [facility] Start: 05-12-2021 COVID-19 Vaccine (5 - Booster) COVID-19 Vaccine (5 - Booster) [facility] Start: 03-03-2020 End: 03-03-2020 Office Visit 03/03/2020 Office Visit Urology Jose Lala MD [address], [address] [place] [id number] [phone] [facility] Start: 02-07-2020 Chlamydia screen Chlamydia screen [facility] Start: 02-07-2020 Screening for Chlamy milka trachomatis Chlamydia screen [facility] Start: 01-29-2020 Influenza vaccination [facility], [place] Start: 11-04-2019 Chlamydia screen Chlamydia screen [facility] Start: 10-05-2019 End: 10-05-2019 Hospital Encounter [facility] Comment on above: EGD ESOPHAGOGASTRODU ODENOSCOPY Start: 02-20-2019 End: 02-20-2019 Office Visit 02/20/2019 Office Visit 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, [employer] - CL[employer]EL [address] [place] [address] [facility] Start: 02-08-2019 End: 02-08-2019 Appointment 02/08/2019 Appointment Radiology [facility] Start: 01-28-2019 Influenza vaccination Flu vaccine (# 1) [place], [place] Start: 2018 Cervical cancer screen Cervical canc er screen [place], [place] Start: 2018 PAP TESTING PAP TESTING [facility] Start: 2018 Screening for malign ant neoplasm of cervix [facility] Start: 2016 Urine microalbumin profile DTAP,TDAP,TD (1 - Tdap) [facility] Start: 2015 Hepatitis C screening Hepatitis C sc [facility] Start: 2015 HEPATITIS C SCREENING HEPATITIS C [facility] Start: 2015 HIV SCREENING HIV SCREENING [facility] Start: 02-05-2014 Varicella vaccine (2 of 2 - 13+ 2-dose series) Varicella vaccine (2 of 2 - 13+ 2-dose series) [facility] Start: 2012 HPV vaccine (1 - Fem yonis 3-dose series) HPV vaccine (1 - Female 3-dose series) [place], [place] Start: 2011 PEDS TO ADULT TRANSI TION ANNUAL ASSESSMENT PEDS TO ADULT TRANSITION ANNUAL ASSESSMENT [facility] Start: 2010 Varicella Vaccine (1 of 2 - 13+ 2-dose series) Varicella Vaccine (1 of 2 - 13+ 2-dose series) [place] Start: 2009 PEDS TO ADULT TRANSI TION INITIAL DISCUSSION PEDS TO ADULT TRANSITION INITIAL DISCUSSION [facility] Start: 2008 HPV vaccine (1 - 2-d ose series) HPV vaccine (1 - 2-dose series) [facility] Start: 2006 HPV VACCINE (1 - 2-d ose series) HPV VACCINE (1 - 2-dose series) [facility] Start: 2003 Pneumococcal 0-64 ye ars Vaccine (1 - PCV) Pneumococcal 0-64 years Vaccine (1 - PCV) [facility] Start: 2003 Pneumococcal 0-64 ye ars Vaccine (1 of 1 - PPSV23) Pneumococcal 0-64 years Vaccine (1 of 1 - PPSV23) [place] Start: 1998 Varicella vaccine (1 of 2 - 2-dose childhood series) Varicella vaccine (1 of 2 - 2-dose childhood series) [place] Start: 1997 COVID-19 VACCINE (#1) COVID-19 VACCI NE (#1) [facility] Start: 1997 HEPATITIS B (1 of 3 - 3-dose series) HEPATITIS B (1 of 3 - 3-dose series) [facility] End: 01-15-2019 Bacteria identified Cx Nom (U) Urine Culture Microbiology Routine Dysuria Gross hematuria 1 Occurrences starting 01/15/2019 until 01/15/2019 [place] Comment on above: 1 Occurrences starti ng 01/15/2019 until 01/15/2019 End: 02-06-2019 C.trachomatis N.gonorrhoeae DNA, Urine C.trachomatis N.gonorrhoeae DNA, Urine Microbiology Routine Gross hematuria Urgency of urination 1 Occurrences starting 02/06/2019 until 02/06/2019 [place] Comment on above: 1 Occurrences starti ng 02/06/2019 until 02/06/2019 C.trachomatis N.gonorrhoeae DNA, Urine C.trachomatis N.gonorrhoeae DNA, Urine Microbiology Routine Gross hematuria Urgency of urination 02/06/2019 12:22 PM EDT [place] COVID-19 [place] End: 10-02-2019 COVID-19 COVID-19 Lab Routine One Time for 1 Occurrences starting 10/02/2019 until 10/02/2019 [place] Comment on above: One Time for 1 Occur rences starting 10/02/2019 until 10/02/2019 End: 03-07-2020 COVID-19 Ambulatory COVID-19 Ambulatory Lab Routine Acute frontal sinusitis, recurrence not specified 1 Occurrences starting 03/07/2020 until 03/07/2020 [facility] [place] Comment on above: 1 Occurrences starti ng 03/07/2020 until 03/07/2020 COVID-19 Ambulatory COVID-19 Amb ulatory Lab Routine Acute frontal sinusitis, recurrence not specified 03/07/2020 11:12 AM EDT [place] End: 03-16-2020 COVID-19, PCR COVID-19, PCR Lab Routine One Time for 1 Occurrences starting 03/16/2020 until 03/16/2020 [place] Comment on above: One Time for 1 Occur rences starting 03/16/2020 until 03/16/2020 End: 03-03-2020 Culture, Urine Culture, Urine Microbiology Routine Gross hematuria 1 Occurrences starting 03/03/2020 until 03/03/2020 [place] Comment on above: 1 Occurrences starti ng 03/03/2020 until 03/03/2020 Culture, Urine [place] End: 06-30-2022 Culture, Urine [facility] Work Phone: Comment on above: One Time for 1 Occur rences starting 06/30/2022 until 06/30/2022 [facility] [facility] [employer] [place] Comment on above: Release Upon Orderin g for 1 Occurrences starting 10/05/2019 Initiate Oxygen Ther apy Protocol Initiate Oxygen Therapy Protocol Respiratory Care Routine Daily until discontinued starting 10/05/2019 [place] Comment on above: Daily until disconti nued starting 10/05/2019 Patient Education Depression, Ad ult (DC) [facility] DC Instructions [facility] Work Phone: Patient referral [facility] Work Phone: Phase I & II - meter ed glucose Phase I & II - metered glucose Point of Care Testing Routine As Needed until discontinued starting 10/05/2019 [facility] [place] Comment on above: As Needed until disc ontinued starting 10/05/2019 End: 10-05-2019 POC Urine Qual POC Urine Qual Point of Care Testing Routine One Time for 1 Occurrences starting 10/05/2019 until 10/05/2019 [place] Comment on above: One Time for 1 Occur rences starting 10/05/2019 until 10/05/2019 Surgical Pathology Surgical Path ology Lab Routine Release Upon Ordering for 1 Occurrences starting 10/05/2019 [place] Comment on above: Release Upon Orderin g for 1 Occurrences starting 10/05/2019 End: 02-06-2019 Urine culture clean catch Urine culture clean catch Microbiology Routine Gross hematuria Urgency of urination 1 Occurrences starting 02/06/2019 until 02/06/2019 [place] Comment on above: 1 Occurrences starti ng 02/06/2019 until 02/06/2019 Urine culture clean catch Urine culture clean catch Microbiology Routine Gross hematuria Urgency of urination 02/06/2019 12:22 PM EDT [place] Immunizations Immunization Date Immunization Notes Care Provider Frank blanco 09-17-2022 tetanus toxoid, reduced diphtheria toxoid, and acellular pertussis vaccine, adsorbed Rishi MARSHALL [facility] 01-05-2022 [facility] [employer] 12-23-2021 [facility] [employer] 04-28-2021 influenza virus vaccine, unspecified formulation Rishi MARSHALL [facility] 03-17-2021 COVID-19, Pfizer, 30mcg/0.3ml Bridgette Lewis [facility] [employer] 02-28-2021 SARS-CoV-2 (COVID-19 ) mRNA BNT-162b2 vax Rishi MARSHALL [facility] 02-27-2021 SARS-CoV-2 (COVID-19 ) Ad26 vaccine, recombinant Rishi MARSHALL [facility] 02-08-2021 SARS-CoV-2 (COVID-19 ) mRNA BNT-162b2 vax Rishi MARSHALL [facility] 01-28-2021 SARS-CoV-2 (COVID-19 ) Ad26 vaccine, recombinant Rishi MARSHALL [facility] 01-20-2021 COVID-19, Pfizer, 30mcg/0.3ml Bridgette [facility] 05-02-2018 influenza virus vaccine, unspecified formulation [facility] 01-27-2016 Influenza Vaccine, unspecified formulation [facility] 01-27-2016 influenza virus vaccine, unspecified formulation Rishi MARSHALL [facility] 12-29-2015 hepatitis B vaccine, adult dosage Rishi MARSHALL [facility] 12-17-2015 hepatitis B vaccine, unspecified formulation [facility] [place] 11-26-2015 hepatitis B vaccine, adult dosage Rishi MARSHALL [facility] 11-11-2015 diphtheria, tetanus toxoids and acellular pertussis vaccine [facility] 11-11-2015 tetanus toxoid, reduced diphtheria toxoid, and acellular pertussis vaccine, adsorbed Rishi MARSHALL [facility] 01-08-2014 tetanus toxoid, reduced diphtheria toxoid, and acellular pertussis vaccine, adsorbed Rishi MARSHALL [facility] 01-08-2014 varicella virus vaccine Rishi MARSHALL [facility] 10-17-2002 DTaP, unspecified formulation Rishi MARSHALL [facility] 10-17-2002 measles, mumps and rubella virus [facility] [place] 10-17-2002 poliovirus vaccine, inactivated Dipakkumar [facility], [place] 05-17-1998 Hib, unspecified Dipakkumar [facility], [place] 05-17-1998 poliovirus vaccine, inactivated Dipakkumar [facility], [place] 03-27-1998 diphtheria, tetanus toxoids and acellular pertussis vaccine [facility] [place] 03-27-1998 DTaP, unspecified formulation [employer] [facility] 03-27-1998 Hib, unspecified Dipakkumar [facility], [place] 03-27-1998 measles, mumps and rubella virus vaccine [facility], [place] 1997 diphtheria, tetanus toxoids and acellular pertussis vaccine [facility] [place] 1997 DTaP, unspecified formulation [employer] [facility] 1997 hepatitis B vaccine, adult dosage Matthew Lemus Work Phone: [facility] Work Phone: 1997 hepatitis B vaccine, unspecified formulation [facility] [place] 1997 Hib, unspecified Dipakkumar [facility], [place] 1997 poliovirus vaccine, inactivated Dipakkumar [facility], [place] 1997 diphtheria, tetanus toxoids and acellular pertussis vaccine [facility] [place] 1997 DTaP, unspecified formulation Rishi [employer] [facility] 1997 diphtheria, tetanus toxoids and acellular pertussis vaccine [facility] [place] 1997 DTaP, unspecified formulation [employer] [facility] 1997 Hib, unspecified Anthonyakian Johnson [place], [place] 1997 Hib, unspecified formulation Rishi MARSHALL [facility] 1997 poliovirus vaccine, inactivated Lisseth [place], [place] 1997 hepatitis B vaccine, adult dosage Matthew Lemus Work Phone: [facility] [employer] Work Phone: 1997 hepatitis B vaccine, pediatric or pediatric/adolescent dosage Rishi MARSHALL [facility] 1997 hepatitis B vaccine, unspecified formulation Lisseth Johnson [place], [place] 1997 hepatitis B vaccine, adult dosage Matthew Lemus Work Phone: [facility] Work Phone: 1997 hepatitis B vaccine, pediatric or pediatric/adolescent dosage Rishi MARSHALL [facility] 1997 hepatitis B vaccine, unspecified formulation Liss[place] Payers Date Payer Category Payer Medicaid [employer] [place] [id number] 2022-Present [phone] [address] [place] [address] Medicaid [id number] 2015 Unknown BCBS [place] P PO xxxxxxxxxxxx 2015-Present [address] [place] [address] xxxxxxxxxxxx [id number] 1997 Unknown [id number] 2.16.840.1.133326.3.579.2.177 1997 Unknown [id number] 2.16.840.1.842139.3.579.2.177 1997 Unknown [id number] 2.16.840.1.896780.3.579.2.175 1997 Unknown [id number] 2.16.840.1.592996.3.579.2.593 1997 Unknown [id number] 2.16.840.1.126759.3.579.2.593 1997 Unknown [id number] 2.16.840.1.100003.3.579.2.593 1997 Unknown [id number] 2.16.840.1.614290.3.579.2.593 1997 Unknown [id number] 2.16.840.1.108237.3.579.2.593 1997 Unknown [id number] 2.16.840.1.917164.3.579.2.593 1997 Unknown [id number] 2.16.840.1.182175.3.579.2.593 1997 Unknown [id number] 2.16.840.1.797437.3.579.2.593 1997 Unknown [id number] 2.16.840.1.891507.3.579.2.593 1997 Unknown [id number] 2.16.840.1.037318.3.579.2.593 1997 Unknown [id number] 2.16.840.1.685425.3.579.2.593 1997 Unknown [id number] 2.16.840.1.048087.3.579.2.593 1997 Unknown [id number] 2.16.840.1.136094.3.579.2.593 1997 Unknown [id number] 2.16.840.1.350908.3.579.2.593 1997 Unknown [id number] 2.16.840.1.397179.3.579.2.593 1997 Unknown [id number] 2.16.840.1.033480.3.579.2.593 1997 Unknown [id number] 2.16.840.1.592211.3.579.2.593 1997 Unknown [id number] 2.16.840.1.857328.3.579.2.593 1997 Unknown [id number] 2.16.840.1.372880.3.579.2.593 1997 Unknown [id number] 2.16.840.1.649195.3.579.2.173 1997 Unknown [id number] 2.16.840.1.401433.3.579.2.173 1997 Unknown [id number] 2.16.840.1.450797.3.579.2.173 1997 Unknown [id number] 2.16.840.1.271598.3.579.2.727 1997 Unknown [id number] 2.16.840.1.374611.3.579.2.727 1997 Unknown [id number] 2.16.840.1.846567.3.579.2.727 1959 Self-pay [id number] 1959 Unknown [id number] 1959 Unknown [id number] 2.16.840.1.820590.3.441 1959 Unknown [id number] Unknown [id number] 2.16.840.1.777394.3.579.2.531 Unknown [id number] 2.16.840.1.424360.3.579.2.531 Unknown [id number] 2.16.840.1.002496.3.579.2.531 Social History Date Type Detail Facility Start: 02-06-2019 End: 02-03-2023 Tobacco smoking status [facility] Start: 11-15-2018 End: 02-06-2019 [facility] Start: 1995 Sex Assigned At Not on file [place] Start: 07-31-2019 End: 10-05-2019 Alcohol intake Current non-drinker of alcohol (finding) [place], [place] Exposure to SARS-CoV -2 (event) Unable to assess [place] Start: 02-26-2017 End: 03-03-2020 Tobacco use and exposure Never used [facility] Start: 03-03-2020 End: 07-01-2022 Alcohol intake Current drinker of alcohol (finding) [place] Start: 03-03-2020 Alcohol Comment occasional [facility] [place] Start: 10-01-2021 End: 06-30-2022 Exposure to SARS-CoV-2 (event) Not sure [place] Tobacco smoking status Never [facility] Start: 04-03-2021 History SDOH Financial [employer] Work Phone: Start: 04-03-2021 History SDOH Food Worry 1 [employer] Work Phone: Start: 04-03-2021 History SDOH Transpo rt Med 2 [employer] Work Phone: Start: *Tobacco [place] [facility] Start: 1995 Sex Assigned At Female [facility] Goals Date Patient Goal Desired Activity /State Functional Status Date Assessment Result Facility 05-10-2023 Functional Status N/A [facility] 02-06-2023 Functional status Patient at Baseline [facility] Work Phone: Mental Status Date Assessment Result Facility 02-06-2023 Cognitive function Cognitive Sta tus Patient at Baseline [facility] Work Phone: Clinical Notes 09-04-2021 to 05-10-2023 Note Date & Type Note Facility 05-10-2023 Hospital Discharg e instructions Patient Education 05/10/2023 11:46:46 Hematuria, Adult Hematuria, Adult Hematuria is blood in the urine. Blood may be visible in the urine, or it may be identified with a test. This condition can be caused by infections of the bladder, urethra, kidney, or prostate. Other possible causes include: Kidney stones. Cancer of the urinary tract. Too much calcium in the urine. Conditions that are passed from parent to child (inherited conditions). Exercise that requires a lot of energy. Infections can usually be treated with medicine, and a kidney stone usually will pass through your urine. If neither of these is the cause of your hematuria, more tests may be needed to identify the cause of your symptoms. It is very important to tell your health care provider about any blood in your urine, even if it is painless or the blood stops without treatment. Blood in the urine, when it happens and then stops and then happens again, can be a symptom of a very serious condition, including cancer. There is no pain in the initial stages of many urinary cancers. Follow these instructions at home: Medicines Take hqyc-wpj-zpuijxc and prescription medicines only as told by your health care provider. If you were prescribed an antibiotic medicine, take it as told by your health care provider. Do not stop taking the antibiotic even if you start to feel better. Eating and drinking Drink enough fluid to keep your urine pale yellow. It is recommended that you drink 3 4 quarts (2.8 3.8 L) a day. If you have been diagnosed with an infection, drinking cranberry juice in addition to large amounts of water is recommended. Avoid caffeine, tea, and carbonated beverages. These tend to irritate the bladder. Avoid alcohol because it may irritate the prostate (in males). General instructions If you have been diagnosed with a kidney stone, follow your health care provider's instructions about straining your urine to catch the stone. Empty your bladder often. Avoid holding urine for long periods of time. If you are female: ?After a bowel movement, wipe from front to back and use each piece of toilet paper only once. ?Empty your bladder before and after sex. Pay attention to any changes in your symptoms. Tell your health care provider about any changes or any new symptoms. It is up to you to get the results of any tests. Ask your health care provider, or the department that is doing the test, when your results will be ready. Keep all follow-up visits. This is important. Contact a health care provider if: You develop back pain. You have a fever or chills. You have nausea or vomiting. Your symptoms do not improve after 3 days. Your symptoms get worse. Get help right away if: You develop severe vomiting and are unable to take medicine without vomiting. You develop severe pain in your back or abdomen even though you are taking medicine. You pass a large amount of blood in your urine. You pass blood clots in your urine. You feel very weak or like you might faint. You faint. Summary Hematuria is blood in the urine. It has many possible causes. It is very important that you tell your health care provider about any blood in your urine, even if it is painless or the blood stops without treatment. Take obvp-sje-qxwpblx and prescription medicines only as told by your health care provider. Drink enough fluid to keep your urine pale yellow. This information is not intended to replace advice given to you by your health care provider. Make sure you discuss any questions you have with your health care provider. Document Revised: 01/14/2021 Document Reviewed: 01/14/2021 [employer] Patient Education 2022 [employer]. Follow Up Care 05/06/2023 07:59:50 With:ROLANDO DEVLIN, Rishi Ghosh, URL Address: [facility] [address] , [place] [address]- When:Within 4 Month(s) Comments:w/PVR [facility] 04-27-2023 Evaluation note Encounter Date Diagnosis Assessment Notes Mar, Irritable bowel syndrome with constipation (ICD-10 - K58.1) Mar, Delayed gastric emptying (ICD-10 - K30) Mar, Vomiting (ICD-10 - R11.10) [employer] Other 09-15-2023 Evaluation note* Encounter Date Diagnosis Assessment Notes Treatment Notes Treatment Clinical Notes Jan, Sore throat (ICD-10 - J02.9) Jan, Acute sinusitis, recurrence not specified, unspecified location (ICD-10 - J01.90) Sinusitis home care material was printed Drink plenty fluids, get plenty of rest. Take the amoxicillin with clavulanate and Medrol Dosepak as prescribed until gone. Use the fluticasone nasal spray as prescribed and your symptoms improved. Take Tylenol or Motrin as needed for aches pains or fevers. Follow-up with your family physician if no improvement in 2 to 3 days [facility] Other 09-10-2023 Hospital Discharge instructions Additional Instructions Important Contact Information You can call [facility] at [phone] any time day or night if you have emergent questions concerning your inpatient stay and to obtain information for obtaining testing results. If at any time you are feeling an increase in your psychiatric symptoms, call your physician or behavioral healthcare provider. If any time you have thoughts of harming yourself or others contact one of the following: Call 8-8 (available 20/12) Crisis Text Line (available 20/12) text 4HOPE to [phone] [facility] Hope Line (available 8 a.m. Midnight) call [phone] ([phone]) [facility] Work Phone: 1(153) 759-511509-09-2023 Progress note Author Karri Kamara [facility] February 05, 2023 12:00pm Note Date/Time February 05, 2023 12:00pm [facility] [address] [place] [address] Psychiatry Progress Note Signed Patient: Lulú Gaitan MR#: [id number] : 1995 Acct:[id number] Age/Sex: 27 / F Adm Date: 3 Loc: 1S Room: [address] [place] [address] Type : ADM IN Attending Dr: Karri Kamara MD Copies to: ~ Date of Service: 02/05/2023 Subjective Subjective Narrative: Lulú reported that she feels good today. She reported that she slept well lastnight but does feel a bit tired due to possibly getting trazodone. She denied any current suicidal thoughts. She reported that her mood is better and feels like the Geodon significantly helped her. Mental Status Exam: Appearance: grossly normal Mental Status: mental status grossly normal Mood: Euthymic mood Affect: Normal affect Speech and Movement: speech and movement normal and speech clear Attitude: cooperative Thought Process: normal Thought Content: Denied hallucinations, no homicidality and no suicidality Insight: Good Judgment: Good Exam Physical Exam Vital Signs: Temp Pulse Resp BP Pulse Ox O2 Del Method 98.5 F 50 L 18 109/62 100 Room Air 02/05/23 07:30 02/05/23 07:30 02/05/23 07:30 02/05/23 07:30 02/05/23 07:30 02/05/23 07:30 Assessment/Plan Assessment/Plan (1) Major depressive disorder, recurrent: Code(s): F33.9 - Major depressive disorder, recurrent, unspecified Status: Acute (2) Suicidal ideation: Code(s): R45.851 - Suicidal ideations Status: Acute (3) Bipolar 1 disorder: Code(s): F31.9 - Bipolar disorder, unspecified Status: Acute Plan Patient doing better at this time, anticipate discharge tomorrow Continue Fetzima 20mg daily for depression, Geodon 20 mg with dinner Continue home medication regimen of buspirone and Xanax Continue to monitor her for mood instability and hallucinations which were reported last hospitalization Continue to monitor mental status Encourage group participation and medication compliance Risk, benefits, and alternatives explained Documented By: Karri Kamara MD 02/05/23 1159 Signed By: <Electronically signed by Karri Kamara MD> 02/05/23 [facility] Work Phone: 1(282) 474-957609-08-2023 Progress note Author Karri Kamara [facility] February 04, 2023 1:43pm Note Date/Time February 04, 2023 1:44pm [facility] [address] [place] [address] Psychiatry Progress Note Signed Patient: Lulú Gaitan MR#: [id number] : 1995 Acct:[id number] Age/Sex: 27 / F Adm Date: 3 Loc: Room: [address] [place] [address] Type : ADM IN Attending Dr: Karri Kamara MD Copies to: ~ Date of Service: 02/04/2023 Subjective Subjective Narrative: Ms. Gaitan reports feeling better today. She denies any side effects after starting Fetzima yesterday. She denies any SI, HI, or AVH. Mood appears to be stable. She reports sleeping and eating well. Patient has no new concerns to report. Mental Status Exam Appearance: grossly normal Mental Status: mental status grossly normal Mood: depressed Affect: mood-congruent Speech and Movement: speech and movement normal and speech clear Attitude: cooperative Thought Process: normal Thought Content: denies AVH, HI, SI Insight: fair Judgment: fair Patient was personally seen by me on the day of the encounter. I reviewed the history and performed the nguyen elements of the physical examination. I formulated the plan of care and confirmed this with the medical student as notedbelow. Patient reported that she is feeling better. She denied any tearfulness episodes. She is concerned about her going into emilia reported that she would like something for mood stability. She reported that her doctor was, started her on Geodon. Exam Physical Exam Vital Signs: Temp Pulse Resp BP Pulse Ox O2 Del Method 98 F 55 L 16 107/71 99 Room Air 02/04/23 07:30 02/04/23 07:30 02/04/23 07:30 02/04/23 07:30 02/04/23 07:30 02/04/23 07:30 Assessment/Plan Assessment/Plan (1) Major depressive disorder, recurrent: Code(s): F33.9 - Major depressive disorder, recurrent, unspecified Status: Acute (2) Suicidal ideation: Code(s): R45.851 - Suicidal ideations Status: Acute (3) Bipolar 1 disorder: Code(s): F31.9 - Bipolar disorder, unspecified Status: Acute Plan Patient admitted to for depression and SI Continue Fetzima 20mg daily for depression We will add Geodon 20 mg with dinner Continue home medication regimen of buspirone and Xanax Continue to monitor her for mood instability and hallucinations which were reported last hospitalization Continue to monitor mental status Encourage group participation and medication compliance Risk, benefits, and alternatives explained Documented By: Karri Kamara MD 02/04/23 0833 Signed By: <Electronically signed by Karri Kamara MD> 02/04/23 [facility] [facility] Work Phone: [phone]) 976-307609-07-2023 Miscellaneous Notes* Telephone Encounter - Viviana David - 02/03/2023 3:38 PM EDT Left VM for patient to call office to update registration and go over records needed for review prior to scheduling. * Telephone Encounter - Viviana David - 02/03/2023 3:38 PM EDT ----- Message from Rizwana Smallwood sent at 02/01/2023 3:13 PM EDT ----- Regarding: Delayed Gastric Emptying No patient name on file. is being referred to or the Gastroparesis clinic. Referring Physician: Dr. Matthew milton Has the patient had a Gastric Emptying Study? Yes Which facility or hospital was the Gastric Emptying Study done at (please list full name of hospital or facility)? [facility] If the patient had a gastric emptying study were the results abnormally delayed? Yes Has the patient had a Smart Pill? No Has the patient had Gastric Bypass? No Has the patient had a Gastric Sleeve? No Has the patient had a Zayda/Hiatal Hernia/Repair? Umbilical Hernia Repair Has the patient had POP/Pyloroplasty? No Is the patient currently on TPN? No Does the patient have a G/J Tube?No Preferred phone number for contact: [phone] [facility] History and physical note Author Karri Kamara [facility] February 03, 2023 11:58am Note Date/Time February 03, 2023 11:58am [facility] [address] [place] [address] Psychiatry H&P Signed Patient: Lulú Gaitan MR#: [id number] : 1995 Acct:[id number] Age/Sex: 27 / F Adm Date: 3 Loc: 1S Room: 9W3492-1 Type: ADM IN Attending Dr: Karri Kamara MD Copies to: Karri Kamara MD Matthew Lemus DO~ Date of Service: 02/03/2023 HPI History of Present Illness History of present illness: Ms. Gaitan is a 27 year old female with a reported history of MDD, generalized anxiety, bipolar disorder, PTSD presents for inpatient admission due to worsening of depression and feeling suicidal. Reportedly, patient presented to the emergency department feeling depressed and doesn't want to be here anymore. She was last admitted to the psych unit in 2020 after an attempted overdose. Since that time, patient has had a baby who is now 5 months old. She states thatshe delivered her daughter 11 weeks premature and spent the first 2 months in a NICU. She states the baby is doing well. States reason for this admission is due to increased depression, poor sleep, poor ADL's, would like to go to sleep and not wake up. States she has thoughts of suicide but no plan, states she does not want to but feels so sad and depressed. States she recently saw her psychiatrist [facility] and was restarted on Latuda. She has been on this medication for about a month. She alsostates that she was on Vraylar but it was not working and was stopped this past Tuesday. Patient was last on Latuda in 2020 in which she reports that she had increased depression and has attempted suicide by overdose. States she feels as though everything that she has been to counseling for, and everything she has overcome in her life has now come flooding back. States she feels she is a bad mother, feels worthless, and in despair. At the time of interview, she presented as depressed and tearful. Patient is hopeful for a medication adjustment and to feel better so she can go home and take care of her daughter as well as herself. Current medications include Xanax 0.25mg BID PRN, Buspirone 10mg BID, Latuda 60mg PO QAM. She denies any current SI, HI, AVH and is not displaying any signs of emilia. 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 Relationships: Patient states her boyfriend and family are her support system Review of Systems Constitutional: denies unintentional weight loss, fever, chills Neuro: denies dizziness/lightheadedness, numbness/tingling in extremities HEENT: denies vision/hearing changes Pulmonary: denies SOB, cough, wheezing Cardiac: denies chest pain/pressure, palpitations GI: admits N/V (related to hyperemesis while and delayed gastric emptying); denies abdominal pain, heartburn, constipation and diarrhea : denies dysuria, hematuria, polyuria Physical Exam General: no acute distress Skin: intact HEENT: head atraumatic, face symmetrical Lungs: breathing normally without excessive effort Cardio: heart is regular Abdomen: normal inspection, non-distended Musculoskeletal: moves all extremities symmetrically Neuro: alert and oriented x3 CNI: normal olfaction CNII: visual cody intact CNIII, IV, : EOMI intact, no nystagmus CNV: Sensation intact to light touch CNVII: Raises eyebrows, smile/frown, puff out cheeks symmetrically CNIX, X: voice normal, soft palate elevation normal, symmetrical CNXI: Shoulder shrug full, symmetric CNXII: Tongue protrusion midline Mental Status Exam Appearance: grossly normal Mental Status: mental status grossly normal Mood: depressed and tearful Affect: mood-congruent Speech and Movement: speech and movement normal and speech clear Attitude: cooperative Thought Process: normal Thought Content: denies AVH, HI, reported SI Insight: fair Judgment: fair Patient was personally seen by me on the day of the encounter. I reviewed the history and performed the nguyen elements of the physical examination. I formulated the plan of care and confirmed this with the medical student as notedbelow. Patient presenting due to concern for depression and suicidal ideation. Reported that she has been having worsening depression over the past few months since her child was born which was a major stressor for her. She reported depressive symptoms of poor sleep and poor appetite. She denied any thoughts ofwanting to harm her child at this time. She does admit to suicidal thoughts andtearfulness. She does not feel like current medical regimen is working [facility] Medical History (Updated 02/03/23 @ 10:00 by Ivanna Blanco) Anxiety Bipolar 1 disorder Depressed Panic attacks Schizoaffective disorder Family History (Updated 01/09/21 @ 02:19 by Tracey Flynn LPN) Mother Hypertension Father Anxiety Father Depression Social History Smoking Status: Never smoker Substance Use Type: None Meds Medications and Allergies Allergies azithromycin Allergy (Verified 02/02/23 19:56) Rash lamotrigine [From Lamictal] Allergy (Verified 02/02/23 19:56) Swelling Home Medications alprazolam 0.25 mg tablet (Xanax) 0.25 mg PO BID PRN Anxiety 02/10/22 [History Confirmed 02/02/23] buspirone 10 mg tablet 10 mg PO BID 02/02/23 [History Confirmed 02/02/23] cefdinir 300 mg capsule 300 mg PO BID 02/02/23 [History Confirmed 02/02/23] drospirenone 3 mg-ethinyl estradiol 0.03 mg tablet 1 tab PO QAM 02/02/23 [History Confirmed 02/02/23] famotidine 20 mg tablet (Pepcid) 20 mg PO QHS 02/02/23 [History Confirmed 02/02/23] lurasidone 60 mg tablet 60 mg PO QAM 02/02/23 [History Confirmed 02/02/23] omeprazole 20 mg capsule,delayed release 20 mg PO QHS 02/02/23 [History Confirmed 02/02/23] Exam Physical Exam Vital Signs: Temp Pulse Resp BP Pulse Ox O2 Del Method 98.4 F 47 L 18 97/52 L 97 Room Air 02/03/23 07:30 02/03/23 07:30 02/03/23 07:30 02/03/23 07:30 02/03/23 07:30 02/03/23 07:30 Results Labs 02/02/23 19:51 02/02/23 19:51 Psychiatry Labs: 02/02/23 02/02/23 02/02/23 19:50 19:51 19:51 RBC 4.70 Hgb 13.8 Hct 41.1 MCV 87.6 MCH 29.4 MCHC 33.6 RDW 12.9 Plt Count 322 MPV 9.2 Sodium 141 Potassium 3.8 Chloride 107 Carbon Dioxide 28.3 Anion Gap 9.5 BUN 11 Creatinine 1.14 Calcium 9.5 Total Bilirubin 0.6 Direct Bilirubin 0.10 Indirect Bilirubin 0.5 AST 32 ALT 38 Alkaline Phosphatase 54 Total Protein 7.8 Albumin 4.6 Urine Color Yellow Urine Appearance Cloudy A Urine pH 6.0 Ur Specific [place] 1.027 Urine Protein 30 H Urine Glucose (UA) Normal Urine Ketones 2+ H Urine Occult Blood 3+ H Urine Nitrite Negative Ur Leukocyte Esterase 2+ H Urine RBC 10-19 H Urine WBC 10-19 H 02/02/23 19:51 RBC Hgb Hct MCV MCH MCHC RDW Plt Count MPV Sodium Potassium Chloride Carbon Dioxide Anion Gap BUN Creatinine Calcium Total Bilirubin Cancelled Direct Bilirubin Cancelled Indirect Bilirubin Cancelled AST Cancelled ALT Cancelled Alkaline Phosphatase Cancelled Total Protein Cancelled Albumin Cancelled Urine Color Urine Appearance Urine pH Ur Specific [place] Urine Protein Urine Glucose (UA) Urine Ketones Urine Occult Blood Urine Nitrite Ur Leukocyte Esterase Urine RBC Urine WBC Assessment/Plan (1) Major depressive disorder, recurrent: Code(s): F33.9 - Major depressive disorder, recurrent, unspecified Status: Acute (2) Suicidal ideation: Code(s): R45.851 - Suicidal ideations Status: Acute (3) Bipolar 1 disorder: Code(s): F31.9 - Bipolar disorder, unspecified Status: Acute Plan Patient admitted to for depression and SI Hold Latuda for now, will start Fetzima 20 mg daily for depression Continue buspirone 10mg BID and Xanax 0.25mg BID PRN We will monitor her for mood instability and hallucinations which were reported last hospitalization Continue to monitor mental status Encourage group participation and medication compliance Risk, benefits, and alternatives explained Documented By: Karri Kamara MD 02/03/23 0853 Signed By: <Electronically signed by Karri Kamara MD> 02/03/23 [address] [facility] Work Phone: 1(865) 325-608202-02-2023 History of Present illness Narrative* Jenna Elliott RN - 07/01/2022 12:45 AM EST Pt taken via wheelchair to ER entrance per wheelchair. Family states we can walk her out to her car, it's not far. Family and pt deny further questions/needs. * Jenna Elliott RN - 07/01/2022 12:40 AM EST Discharge instructions provided. Denies further questions/concerns at this time. IV lock discontinued at this time. Dressing applied. * Jenna Elliott RN - 07/01/2022 12:00 AM EST Nurse allows pt and family time to verbalize further questions/concerns at this time. All deny questions at this time, Pt states she feels comfortable going home, if that is what provider decides, and feels like her needs have been addressed while in facility. * Jenna Elliott RN - 06/30/2022 11:40 PM EST Nurse at bedside from [id number]. Nurse pal[pates pt's abdomen when pt feeling tightening/cramping. Abdomen remains soft, no ctx palpated. Pt touching abdomen and readjusting in bed while explainingto nurse about discomfort. Monitors readjusted periodically. Pt reminded to try to remain somewhat still and to reduce abdominal touching as much as possible, due to the fact that the tocometer only measures pressure. Pt agreeable. * Jenna Elliott RN - 06/30/2022 10:50 PM EST Pt updated with current plan of care. Pt agreeable and denies further questions/needs at this time. * Jenna Elliott RN - 06/30/2022 10:05 PM EST Pt up to bathroom at this time. Gait steady. Denies need for assistance. * Jenna Elliott RN - 06/30/2022 10:00 PM EST Pt c/o occassional abdominal tightening/cramping, that started today after being on her feet [employer]iquita at work. States that tightening was less intense while waiting in ER waiting room and intensity and frequency of discomfort has decreased overall, significantly, since arrival to hospital. Pt states she has a zofran pump and denies nausea at this time. States I just ate [employer]. Pt denies vaginal bleeding/leaking. States she is feeling baby move as usual. * Jenna Elliott RN - 06/30/2022 9:55 PM EST Pt arrived to OB dept via wheelchair per ER staff. Bedside report given. Pt denies questions/concerns at this time. documented in this encounterB[facility] Work Phone: 1(755) 431-945502-02-2023 Hospital Discharge instructions* Discharge Instructions* Jenna Elliott RN - 07/01/2022 12:27 AM EST OUTPATIENT DISCHARGE Dr. Miguel Aguilera [facility] Dr. Katelynn Leslie [facility] [address] [facility] [address] [facility] [address] [place] Chyna Prakash [facility] [place] [address] [place] [address] ACTIVITY LIMITATIONS: ( x )Up and about as desired and tolerated ( )Up to bathroom only ( )Lay on either side ( )Avoid heavy lifting or exercise ( )No sex ( )No nipple stimulation ( )Complete bedrest ( )Avoid using stairs ( x )Increase fluids DRINK AT LEAST eight-8oz. Glasses of water daily. Call your Doctor if: ( x )Contractions are every 5 minutes apart (from start of one to the start of the next contraction) lasting 60 seconds for at least 1 hour, strong enough you can not walk or talk through the contraction and regular. ( x )Bag of water breaks ( x )Vaginal bleeding ( x )Unusual pain occurs ( x )Decreased movement ( x ) labor: If you have 4 contractions in an hour Keep your scheduled follow up appointment. IN CASE OF EMERGENCY CONTACT LABOR AND DELIVERY . documented in this encounterBON [facility] Phone: [phone]) 872-752209-14-2022 History and physical note Author Tae Natarajan [facility] February 10, 2022 5:06pm Note Date/Time February 10, 2022 5:06pm [facility] [address] [place] [address] Vascular Surgery H&P Signed Patient: Lulú Gaitan MR#: [id number] : 1995 Acct:[id number] Age/Sex: 26 / F Adm Date: 2 Loc: Room: Type: [facility] Attending Dr: Tae Natarajan MD Copies to: MD Matthew Hernandez DO~ Date of Service: 02/10/2022 HPI History of Present Illness Chief complaint: Hematuria HPI: Ms. Gaitan is a 26 year old female being evaluated by Dr. Marshall for recurrent gross hematuria. Other evaluation including CT scan has been negative and Dr. Marshall requested diagnostic arteriogram and venogram. [facility] Vaccinated for COVID-19?: Yes Medical History (Updated 02/10/22 @ 17:05 by Tae Natarajan MD) Anxiety Bipolar 1 disorder Depressed Panic attacks Schizoaffective disorder Family History (Updated 01/09/21 @ 02:19 by Tracey Flynn LPN) Mother Hypertension Father Anxiety Father Depression Social History Smoking Status: Never smoker Substance Use Type: None Meds Medications and Allergies Allergies azithromycin Allergy (Verified 01/08/21 18:51) Rash lamotrigine [From Lamictal] Allergy (Verified 02/10/22 14:14) Swelling Home Medications alprazolam 0.5 mg tablet 0.25 mg PO BID PRN Anxiety 01/08/21 [History Confirmed 01/08/21] bisoprolol fumarate 5 mg tablet 5 mg PO DAILY 01/08/21 [History Confirmed 01/08/21] buspirone 15 mg tablet 15 mg PO DAILY 01/08/21 [History Confirmed 01/08/21] desvenlafaxine 100 mg tablet,extended release 24 hr 100 mg PO DAILY 01/08/21 [History Confirmed 01/08/21] pantoprazole 40 mg tablet,delayed release (Protonix) 40 mg PO DAILY 01/08/21 [History Confirmed 01/08/21] trazodone 50 mg tablet 150 mg PO HS 01/08/21 [History Confirmed 01/08/21] alprazolam 0.25 mg tablet (Xanax) 0.25 mg PO BID PRN Anxiety 02/10/22 [History Confirmed 02/10/22] aripiprazole 15 mg tablet (Abilify) 15 mg PO DAILY 02/10/22 [History Confirmed 02/10/22] lgqunmcgdv-pmebrhmvhrvtr-ellkzahy 50 mg-300 mg-40 mg capsule (Fioricet) 1 cap POQ4H PRN Migraine Headache 02/10/22 [History Confirmed 02/10/22] metformin 500 mg 24 hr tablet,extended release 500 mg PO BID 02/10/22 [History Confirmed 02/10/22] ondansetron HCl 4 mg tablet 4 mg PO Q6H PRN Nausea 02/10/22 [History Confirmed 02/10/22] topiramate 100 mg tablet (Topamax) mg 02/10/22 [History] Exam Physical Exam Vital Signs: Pulse Resp BP Pulse Ox O2 Del Method 88 18 103/67 98 Room Air 02/10/22 14:17 02/10/22 14:17 02/10/22 14:17 02/10/22 14:17 02/10/22 14:17 Narrative: Pleasant female in no acute distress. Right femoral pulse is normal. Results Labs CBC & Chem 7: 02/10/22 14:17 Labs: Laboratory Results - last 24 hr 02/10/22 02/10/22 14:17 14:25 PHA Creatinine Clear 88.89 BUN 9 Creatinine 1.03 Est GFR ( Amer) > 60 Est GFR (Non-Af Amer) > 60 Urine HCG, Qual Negative A&P - Vascular (1) Hematuria: Plan: Patient understands that we will proceed with diagnostic arteriogram and venogram. Code(s): R31.9 - Hematuria, unspecified Status: Acute Documented By: Tae Natarajan MD 02/10/22 170 4 Signed By: <Electronically signed by MD Tae Natarajan> 02/10/22 [facility] Work Phone: 1(757) 237-255408-29-2022 Evaluation note* Encounter Date Diagnosis Assessment Notes Treatment Notes Treatment Clinical Notes Dec, Gross hematuria (ICD-10 - R31.0) Dec, Other [Hematuria I called Dr. Marshall regarding this patient. He does not feel that a CT will be the likely to show an AVM and if 1 is present. He had a prior patient with similar presentation who had a positive diagnostic arteriogram. We will go ahead with arteriogram and venogram as requested. Frograms Other 05-15-2022 Hospital Discharge instructions* Instructions* Christine Vazquez PA-C - 10/11/2021 Take ibuprofen grwb-nii-qaqnbgy 600 mg 3 times daily as needed for pain. Follow- up with your primary care provider and discuss additional testing if symptoms not improved. Return to the emergency room for any worsening symptoms. * Attachments The following attachments cannot be sent through Care Everywhere. * Pelvic Pain ([place]) [facility] Work Phone: [phone]) 594-311205-03-2022 Hospital Discharge instructions Patient Education 09/29/2021 13:37:25 Hematuria, Adult Hematuria, Adult Hematuria is blood in the urine. Blood may be visible in the urine, or it may be identified with a test. This condition can be caused by infections of the bladder, urethra, kidney, or prostate. Otherpossible causes include: Kidney stones. Cancer of the urinary tract. Too much calcium in the urine. Conditions that are passed from parent to child (inherited conditions). Exercise that requires a lot of energy. Infections can usually be treated with medicine, and a kidney stone usually will pass through your urine. If neither of these is the cause of your hematuria, more tests may be needed to identify the cause of your symptoms. It is very important to tell your health care provider about any blood in your urine, even if it ispainless or the blood stops without treatment. Blood in the urine, when it happens and then stops and then happens again, can be a symptom of a very serious condition, including cancer. There is no pain in the initial stages of many urinary cancers. Follow these instructions at home: Medicines Take utpf-rfp-xpzdawc and prescription medicines only as told by your health care provider. If you were prescribed an antibiotic medicine, take it as told by your health care provider. Do notstop taking the antibiotic even if you start to feel better. Eating and drinking Drink enough fluid to keep your urine clear or pale yellow. It is recommended that you drink 3 4 quarts (2.8 3.8 L) a day. If you have been diagnosed with an infection, it is recommended that you drink cranberry juice in addition to large amounts of water. Avoid caffeine, tea, and carbonated beverages. These tend to irritate the bladder. Avoid alcohol because it may irritate the prostate (men). General instructions If you have been diagnosed with a kidney stone, follow your health care provider's instructions about straining your urine to catch the stone. Empty your bladder often. Avoid holding urine for long periods of time. If you are female: ?After a bowel movement, wipe from front to back and use each piece of toilet paper only once. ?Empty your bladder before and after sex. Pay attention to any changes in your symptoms. Tell your health care provider about any changes or any new symptoms. It is your responsibility to get your test results. Ask your health care provider, or the department performing the test, when your results will be ready. Keep all follow-up visits as told by your health care provider. This is important. Contact a health care provider if: You develop back pain. You have a fever. You have nausea or vomiting. Your symptoms do not improve after 3 days. Your symptoms get worse. Get help right away if: You develop severe vomiting and are unable take medicine without vomiting. You develop severe pain in your back or abdomen even though you are taking medicine. You pass a large amount of blood in your urine. You pass blood clots in your urine. You feel very weak or like you might faint. You faint. Summary Hematuria is blood in the urine. It has many possible causes. It is very important that you tell your health care provider about any blood in your urine, even ifit is painless or the blood stops without treatment. Take tjtp-trw-tnusjox and prescription medicines only as told by your health care provider. Drink enough fluid to keep your urine clear or pale yellow. This information is not intended to replace advice given to you by your health care provider. Make sure you discuss any questions you have with your health care provider. Document Released: 05/16/2006 Document Revised: 10/10/2019 Document Reviewed: 06/18/2017 [employer] Patient Education 2019 GeeYee. Follow Up Care 09/22/2021 14:13:42 With:ROLANDO DEVLIN, Rishi Ghosh, MOHINI Address: [facility] [address] , [place] [address]- Business (1) When: Unknown [facility] 04-08-2022 Hospital Discharge instructions Patient Education 09/04/2021 10:46:21 Cystoscopy Cystoscopy Cystoscopy is a procedure that is used to help diagnose and sometimes treat conditions that affect the lower urinary tract. The lower urinary tract includes the bladder and the urethra. The urethra is the tube that drains urine from the bladder. Cystoscopy is done using a thin, tube-shaped instrument with a light and camera at the end (cystoscope). The cystoscope may be hard or flexible, depending on the goal of the procedure. The cystoscope is inserted through the urethra, into the bladder. Cystoscopy may be recommended if you have: Urinary tract infections that keep coming back. Blood in the urine (hematuria). An inability to control when you urinate (urinary incontinence) or an overactive bladder. Unusual cells found in a urine sample. A blockage in the urethra, such as a urinary stone. Painful urination. An abnormality in the bladder found during an intravenous pyelogram (IVP) or CT scan. Cystoscopy may also be done to remove a sample of tissue to be examined under a microscope (biopsy). Tell a health care provider about: Any allergies you have. All medicines you are taking, including vitamins, herbs, eye drops, creams, and kfkm-dke-mxmqhwc medicines. Any problems you or family members have had with anesthetic medicines. Any blood disorders you have. Any surgeries you have had. Any medical conditions you have. Whether you are or may be . What are the risks? Generally, this is a safe procedure. However, problems may occur, including: Infection. Bleeding. Allergic reactions to medicines. Damage to other structures or organs. What happens before the procedure? Ask your health care provider about: ?Changing or stopping your regular medicines. This is especially important if you are taking diabetes medicines or blood thinners. ?Taking medicines such as aspirin and ibuprofen. These medicines can thin your blood. Do not take these medicines unless your health care provider tells you to take them. ?Taking iksz-xbk-psurpiu medicines, vitamins, herbs, and supplements. Follow instructions from your health care provider about eating or drinking restrictions. Ask your health care provider what steps will be taken to help prevent infection. These may include: ?Washing skin with a germ-killing soap. ?Taking antibiotic medicine. You may have an exam or testing, such as: ? X-rays of the bladder, urethra, or kidneys. ?Urine tests to check for signs of infection. Plan to have someone take you home from the hospital or clinic. What happens during the procedure? You will be given one or more of the following: ?A medicine to help you relax (sedative). ?A medicine to numb the area (local anesthetic). The area around the opening of your urethra will be cleaned. The cystoscope will be passed through your urethra into your bladder. Germ-free (sterile) fluid will flow through the cystoscope to fill your bladder. The fluid will stretch your bladder so that your health care provider can clearly examine your bladder shen. Your doctor will look at the urethra and bladder. Your doctor may take a biopsy or remove stones. The cystoscope will be removed, and your bladder will be emptied. The procedure may vary among health care providers and hospitals. What can I expect after the procedure? After the procedure, it is common to have: Some soreness or pain in your abdomen and urethra. Urinary symptoms. These include: ?Mild pain or burning when you urinate. Pain should stop within a few minutes after you urinate. This may last for up to 1 week. ?A small amount of blood in your urine for several days. ?Feeling like you need to urinate but producing only a small amount of urine. Follow these instructions at home: Medicines Take npon-bxg-tuppfly and prescription medicines only as told by your health care provider. If you were prescribed an antibiotic medicine, take it as told by your health care provider. Do notstop taking the antibiotic even if you start to feel better. General instructions Return to your normal activities as told by your health care provider. Ask your health care provider what activities are safe for you. Do not drive for 24 hours if you were given a sedative during your procedure. Watch for any blood in your urine. If the amount of blood in your urine increases, call your healthcare provider. Follow instructions from your health care provider about eating or drinking restrictions. If a tissue sample was removed for testing (biopsy) during your procedure, it is up to you to get your test results. Ask your health care provider, or the department that is doing the test, when yourresults will be ready. Drink enough fluid to keep your urine pale yellow. Keep all follow-up visits as told by your health care provider. This is important. Contact a health care provider if you: Have pain that gets worse or does not get better with medicine, especially pain when you urinate. Have trouble urinating. Have more blood in your urine. Get help right away if you: Have blood clots in your urine. Have abdominal pain. Have a fever or chills. Are unable to urinate. Summary Cystoscopy is a procedure that is used to help diagnose and sometimes treat conditions that affect the lower urinary tract. Cystoscopy is done using a thin, tube-shaped instrument with a light and camera at the end. After the procedure, it is common to have some soreness or pain in your abdomen and urethra. Watch for any blood in your urine. If the amount of blood in your urine increases, call your healthcare provider. If you were prescribed an antibiotic medicine, take it as told by your health care provider. Do notstop taking the antibiotic even if you start to feel better. This information is not intended to replace advice given to you by your health care provider. Make sure you discuss any questions you have with your health care provider. Document Released: 05/13/2001 Document Revised: 05/08/2019 Document Reviewed: 05/08/2019 [employer] Patient Education 2020 GeeYee. Follow Up Care 08/07/2021 15:47:45 With:ROLANDO DEVLIN, Rishi hGosh, URL Address: [address] [place] [address]- When: Unknown Comments:will schedule Cysto [facility] discharge summary Author Karri Kamara [facility] February 06, 2023 11:04am Note Date/Time February 06, 2023 11:04am [facility] [address] [place] [address] Discharge Summary Signed Patient: Lulú Gaitan MR#: [id number] : 1995 Acct:[id number] Age/Sex: 27 / F Adm Date: 3 Loc: Room: [address] [place] [address]: Karri Kamara MD Copies to: MD Matthew Wyatt,DO~ Providers Date of Discharge: 02/06/23 Discharging Provider: Karri Kamara Primary Care Provider: Matthew Lemus Discharge Diagnosis (1) Major depressive disorder, recurrent: (2) Suicidal ideation: (3) Bipolar 1 disorder: Final Diagnosis Final Discharge Diagnosis: Bipolar 1 disorder Summary Hospital Course Hospital course: According to admission note: Ms. Gaitan is a 27 year old female with a reported history of MDD, generalized anxiety, bipolar disorder, PTSD presents for inpatient admission due to worsening of depression and feeling suicidal. Reportedly, patient presented to the emergency department feeling depressed and doesn't want to be here anymore. She was last admitted to the psych unit in fter an attempted overdose. Since that time, patient has had a baby who is now 5 months old. She states that she delivered her daughter 11 weeks premature and spent the first 2 months in a NICU. She states the baby is doing well. States reason for this admission is due to increased depression, poor sleep, poor ADL's, would like to go to sleep and not wake up. States she has thoughts of suicide but no plan, states she does not want to but feels so sad and depressed. States she recently saw her psychiatrist at [facility] and was restarted on Latuda. She has been on this medication for about a month. She alsostates that she was on Vraylar but it was not working and was stopped this past Tuesday. Patient was last on Latuda in 2020 in which she reports that she had increased depression and has attempted suicide by overdose. States she feels as though everything that she has been to counseling for, and everything she has overcome in her life has now come flooding back. States she feels she is a bad mother, feels worthless, and in despair. At the time of interview, she presented as depressed and tearful. Patient is hopeful for a medication adjustment and to feel better so she can go home and take care of her daughter as well as herself. Current medications include Xanax 0.25mg BID PRN, Buspirone 10mg BID, Latuda 60mg PO QAM. She denies any current SI, HI, AVH and is not displaying any signs of emilia. 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 She tolerated the medication without any problems and did not report any side effects. She had gradual improvement of her depression and she felt that the Geodon helped stabilize her mood better. She did not exhibit any behavior concerning for suicidality. She did not have any conflict with peers or staff. Her symptoms improved, she became more social on the unit and attended more groups. She will learn coping skills to manage her symptoms. On the day of discharge she reported that she was doing well. She was excited to get back home to her family. She denied anydepression or suicidality. She felt that her mood was stable and felt that the medication was greatly beneficial to her. Condition Condition at Discharge: Stable Status at Discharge Cognitive/behavioral status at discharge: Mental Status Exam: Appearance: grossly normal Mental Status: mental status grossly normal Mood: Euthymic mood Affect: Normal affect Speech and Movement: speech and movement normal and speech clear Attitude: cooperative Thought Process: normal Thought Content: Denied hallucinations, no homicidality and no suicidality Insight: Good Judgment: Good Functional status at discharge: independent ambulation Overall status at discharge: patient is back to baseline Time Spent with Patient Time spent providing/coordinating discharge services (# min): 30 Exam Physical Exam Vital Signs: Temp Pulse Resp BP Pulse Ox O2 Del Method 98.1 F 83 18 102/60 97 Room Air 02/06/23 07:30 02/06/23 07:30 02/06/23 07:30 02/06/23 07:30 02/06/23 07:30 02/06/23 07:30 Discharge Plan Discharge Plan Patient Disposition: Home Activity: No Activity Restriction Diet: Regular Additional Instructions: Important Contact Information You can call [facility] at [phone] any time day or night if you have emergent questions concerning your inpatient stay and to obtain information for obtaining testing results.? Ifat any time you are feeling an increase in your psychiatric symptoms, call your physician or behavioral healthcare provider. If any time you have thoughts of harming yourself or others contact one of the following: Call 988 (available 20/12) Crisis Text Line (available 20/12) text 4HOPE to [phone] [facility] Hope Line (available 8 a.m. Midnight) call [phone] ([phone]) Stand Alone Forms: Work/School Release Form Prescriptions: New Fetzima 20 mg Capsule,Extended Release 24 Hr 20 mg PO DAILY Qty: 60 0RF ziprasidone HCl 20 mg Capsule 20 mg PO DAILY.PC.SUPPER Qty: 30 0RF Continued alprazolam [Xanax] 0.25 mg Tablet 0.25 mg PO DAILY PRN (Reason: Anxiety) omeprazole 20 mg capsule,delayed release(DR/EC) 20 mg PO QHS cefdinir 300 mg capsule 300 mg PO BID Patient Comments: 16 DOSES REMAINING drospirenone-ethinyl estradiol 3-0.03 mg tablet 1 tab PO QAM Patient Comments: TAKE 1 TABLET BY MOUTH EVERY DAY IN THE MORNING famotidine [Pepcid] 20 mg Tablet 20 mg PO QHS buspirone 10 mg tablet 10 mg PO BID Patient Comments: TAKE 1 TABLET (10 MG TOTAL) BY MOUTH IN THE MORNING AND BEFORE BEDTIME Discontinued lurasidone 60 mg tablet 60 mg PO QAM Patient Comments: TAKE 1 TABLET BY MOUTH DAILY WITH BREAKFAST. Follow Up: [facility] [Other] (fax:[phone]) [facility] [Outside] Matthew Lemus DO [Primary Care Provider] - (Please contact for any medical needs or concerns) Documented By: Karri Kamara MD 02/06/231102 Signed By: <Electronically signed by Karri Kamara MD> 02/06/23 [address] [facility] Work Phone: Evaluation + Plan note No data available for this section [facility] evaluation + Plan note Future Appointments Appointment Date:02/05/2022 09:45:00 AM Scheduled Provider:Rishi MARSHALL MD Location:[facility] Appointment Type:URO Office Visit [facility] Evaluation + Plan note Future Appointments Appointment Date:09/27/2023 10:15:00 AM Scheduled Provider:Rishi MARSHALL MD Location:[facility] Appointment Type:URO Office Visit [facility] evaluation note* Diagnosis Lower abdominal pain- Primary Abdominal pain, other specified site documented in this encounter [employer] Work Phone: evalqbtgca note* Diagnosis Onset Date Resolution Status Hematuria acute [facility] Work Phone: evaluation note* Diagnosis Hyperemesis- Primary Persistent vomiting Pelvic cramping Unspecified symptom associated with female genital organs documented in this encounter [facility] Work Phone: evaluation note* Diagnosis Onset Date Resolution Status Bipolar 1 disorder acute Depression acute Major depressive disorder, recurrent acute Suicidal ideation acute [facility] Work Phone: Evaluation noteNo assessment information available [facility] Work Phone: [employer] general Narrative - Reported* Type Description Date Medical History migraine headache Medical History endometriosis Medical History PCOS Medical History borderline personality disorder Medical History bipolar Medical History anxiety Medical History chronic depression Surgical History laparoscopy x3 female Surgical History umbilical hernia repair Hospitalization History 1 [facility] 2020 Hospitalization History as a child for stomach p ain [employer] Other Hisjkld general Narrative - Reported* Type Description Date Medical History migraine headache Medical History endometriosis Medical History PCOS Medical History borderline personality disorder Medical History bipolar Medical History anxiety Medical History chronic depression Surgical History laparoscopy x3 female Surgical History umbilical hernia repair Hospitalization History 1 [facility] 2020 Hospitalization History as a child for stomach p ain Hospitalization History LATUDA REACTION 1 [facility] 02/02/2023 [employer] [facility] [employer] Other Hospital Discharge instructions Additional Instructions Hold Metformin for 2 days. No heavy lifting of anything over 5 pounds. No pushing or pulling. No vigorous activity. Remove dressing in 24 hours.[facility] Work Phone: Progress note No data available for this section [facility] Assessments Diagnosis Gross hematuria Urgency of urination Diagnosis Gross hematuria Urgency of urination Diagnosis Gross hematuria Diagnosis Acute frontal sinusitis, recurrence not specified Diagnosis Viral URI with cough Acute upper respiratory infections of unspecified site Diagnosis Intractable nausea and vomiting Persistent vomiting Diagnosis Dysuria Gross hematuria Advance Directives No Advanced Directives Records FoundDocuments on File Type Date Recorded 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 Advance Directives and Living Will Power of Report Writer Documents on File Type Date Recorded 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 How can you care for yourself at home? Activity Rest as much as you need to after you go home. You should be able to go back to your usual activities the day after the test. Diet Drink plenty of fluids (unless your doctor has told you not to). Follow-up care is a nguyen part of your treatment and safety. Be sure to make and go to all appointments, and call your doctor if you are having problems. When should you call for help? Call 911 anytime you think you may need emergency care. For example, call if: You passed out (lost consciousness). You cough up blood. You vomit blood or what looks like coffee grounds. You pass maroon or very bloody stools. Call your doctor now or seek immediate medical care if: You have trouble swallowing. You have belly pain. Your stools are black and tarlike or have streaks of blood. You are sick to your stomach or cannot keep fluids down. Watch closely for changes in your health, and be sure to contact your doctor if: Your throat still hurts after a day or two. You do not get better as expected. Where can you learn more? Go to [email or web address] and sign in to your [employer] account. Enter J454 in the Search Health Information box to learn more about Upper GI Endoscopy: What to Expect at Home. . 9253-0818 [employer]. Care instructions adapted under license by [employer]. This care instruction is for use with your licensed healthcare professional. If you have questions about a medical condition or this instruction, always ask your healthcare professional. [employer] disclaims any warranty or liability for your use of this information. Content Version: 9.9.970379; Last Revised: July 19, 2012 Upper GI Endoscopy: What to Expect at Home Your Recovery You may have a sore throat for a day or two after the test. How can you care for yourself at home? Activity Rest as much as you need to after you go home. You should be able to go back to your usual activities the day after the test. Diet Drink plenty of fluids (unless your doctor has told you not to). Follow-up care is a nguyen part of your treatment and safety. Be sure to make and go to all appointments, and call your doctor if you are having problems. When should you call for help? Call 911 anytime you think you may need emergency care. For example, call if: You passed out (lost consciousness). You cough up blood. You vomit blood or what looks like coffee grounds. You pass maroon or very bloody stools. Call your doctor now or seek immediate medical care if: You have trouble swallowing. You have belly pain. Your stools are black and tarlike or have streaks of blood. You are sick to your stomach or cannot keep fluids down. Watch closely for changes in your health, and be sure to contact your doctor if: Your throat still hurts after a day or two. You do not get better as expected. Where can you learn more? Go to [email or web address] and sign in to your [employer] account. Enter J454 in the Search Health Information box to learn more about Upper GI Endoscopy: What to Expect at Home. . [id number] [employer]. Care instructions adapted under license by [employer].. This care instruction is for use with your licensed healthcare professional. If you have questions about a medical condition or this instruction, always ask your healthcare professional. [employer] disclaims any warranty or liability for your use of this information. Content Version: 9.9.722324; Last Revised: July 19, 2012 Upper GI Endoscopy: What to Expect at Home Your Recovery You may have a sore throat for a day or two after the test. How can you care for yourself at home? Activity Rest as much as you need to after you go home. You should be able to go back to your usual activities the day after the test. Diet Drink plenty of fluids (unless your doctor has told you not to). Follow-up care is a nguyen part of your treatment and safety. Be sure to make and go to all appointments, and call your doctor if you are having problems. When should you call for help? Call 911 anytime you think you may need emergency care. For example, call if: You passed out (lost consciousness). You cough up blood. You vomit blood or what looks like coffee grounds. You pass maroon or very bloody stools. Call your doctor now or seek immediate medical care if: You have trouble swallowing. You have belly pain. Your stools are black and tarlike or have streaks of blood. You are sick to your stomach or cannot keep fluids down. Watch closely for changes in your health, and be sure to contact your doctor if: Your throat still hurts after a day or two. You do not get better as expected. Where can you learn more? Go to [email or web address] and sign in to your [employer] account. Enter J454 in the Search Health Information box to learn more about Upper GI Endoscopy: What to Expect at Home. . [id number] [employer]. Care instructions adapted under license by [employer].. This care instruction is for use with your licensed healthcare professional. If you have questions about a medical condition or this instruction, always ask your healthcare professional. [employer] disclaims any warranty or liability for your use of this information. Content Version: 9.9.973806; Last Revised: July 19, 2012 Upper GI Endoscopy: What to Expect at Home Your Recovery You may have a sore throat for a day or two after the test. How can you care for yourself at home? Activity Rest as much as you need to after you go home. You should be able to go back to your usual activities the day after the test. Diet Drink plenty of fluids (unless your doctor has told you not to). Follow-up care is a nguyen part of your treatment and safety. Be sure to make and go to all appointments, and call your doctor if you are having problems. When should you call for help? Call 911 anytime you think you may need emergency care. For example, call if: You passed out (lost consciousness). You cough up blood. You vomit blood or what looks like coffee grounds. You pass maroon or very bloody stools. Call your doctor now or seek immediate medical care if: You have trouble swallowing. You have belly pain. Your stools are black and tarlike or have streaks of blood. You are sick to your stomach or cannot keep fluids down. Watch closely for changes in your health, and be sure to contact your doctor if: Your throat still hurts after a day or two. You do not get better as expected. Where can you learn more? Go to [email or web address] and sign in to your [employer] Prep account. Enter J454 in the Search Health Information box to learn more about Upper GI Endoscopy: What to Expect at Home. . 2110-3180 [employer]. Care instructions adapted under license by [employer]. This care instruction is for use with your licensed healthcare professional. If you have questions about a medical condition or this instruction, always ask your healthcare professional. [employer] disclaims any warranty or liability for your use of this information. Content Version: 9.9.929422; Last Revised: July 19, 2012 Upper GI Endoscopy: What to Expect at Home Your Recovery You may have a sore throat for a day or two after the test. How can you care for yourself at home? Activity Rest as much as you need to after you go home. You should be able to go back to your usual activities the day after the test. Diet Drink plenty of fluids (unless your doctor has told you not to). Follow-up care is a nguyen part of your treatment and safety. Be sure to make and go to all appointments, and call your doctor if you are having problems. When should you call for help? Call 911 anytime you think you may need emergency care. For example, call if: You passed out (lost consciousness). You cough up blood. You vomit blood or what looks like coffee grounds. You pass maroon or very bloody stools. Call your doctor now or seek immediate medical care if: You have trouble swallowing. You have belly pain. Your stools are black and tarlike or have streaks of blood. You are sick to your stomach or cannot keep fluids down. Watch closely for changes in your health, and be sure to contact your doctor if: Your throat still hurts after a day or two. You do not get better as expected. Where can you learn more? Go to [email or web address] and sign in to your [employer] account. Enter J454 in the Search Health Information box to learn more about Upper GI Endoscopy: What to Expect at Home. . 8432-9295 [employer]. Care instructions adapted under license by [employer]. This care instruction is for use with your licensed healthcare professional. If you have questions about a medical condition or this instruction, always ask your healthcare professional. [employer] disclaims any warranty or liability for your use of this information. Content Version: 9.9.290496; Last Revised: July 19, 2012 Upper GI Endoscopy: What to Expect at Home Your Recovery You may have a sore throat for a day or two after the test. How can you care for yourself at home? Activity Rest as much as you need to after you go home. You should be able to go back to your usual activities the day after the test. Diet Drink plenty of fluids (unless your doctor has told you not to). Follow-up care is a nguyen part of your treatment and safety. Be sure to make and go to all appointments, and call your doctor if you are having problems. When should you call for help? Call 911 anytime you think you may need emergency care. For example, call if: You passed out (lost consciousness). You cough up blood. You vomit blood or what looks like coffee grounds. You pass maroon or very bloody stools. Call your doctor now or seek immediate medical care if: You have trouble swallowing. You have belly pain. Your stools are black and tarlike or have streaks of blood. You are sick to your stomach or cannot keep fluids down. Watch closely for changes in your health, and be sure to contact your doctor if: Your throat still hurts after a day or two. You do not get better as expected. Where can you learn more? Go to [email or web address] and sign in to your [employer] account. Enter J454 in the [employer] Information box to learn more about Upper GI Endoscopy: What to Expect at Home. . 8349-2069 [employer]. Care instructions adapted under license by [employer]. This care instruction is for use with your licensed healthcare professional. If you have questions about a medical condition or this instruction, always ask your healthcare professional. [employer] disclaims any warranty or liability for your use of this information. Content Version: 9.9.640559; Last Revised: July 19, 2012 Upper GI Endoscopy: What to Expect at Home Your Recovery After you have an endoscopy, you will stay at the hospital or clinic for 1 to 2 hours. This will allow the medicine to wear off. You will be able to go home after your doctor or nurse checks to make sure you are not having any problems. You may have to stay overnight if you had treatment during the test. You may have a sore throat fora day or two after the test. This care sheet gives you a general idea about what to expect after the test. How can you care for yourself at home? Activity Rest as much as you need to after you go home. You should be able to go back to your usual activities the day after the test. Diet Follow your doctor's directions for eating after the test. Drink plenty of fluids (unless your doctor has told you not to). Medications If you have a sore throat the day after the test, use an [id number]-qoeolig spray to numb your throat. Follow-up care is a nguyen part of your treatment and safety. Be sure to make and go to all appointments, and call your doctor if you are having problems. It's also a good idea to know your test resultsand keep a list of the medicines you take. When should you call for help? Call 911 anytime you think you may need emergency care. For example, call if: You passed out (loses consciousness). You have trouble breathing. You pass maroon or bloody stools. Call your doctor now or seek immediate medical care if: You have pain that does not get better after your take pain medicine. You have new or worse belly pain. You have blood in your stools. You are sick to your stomach and cannot keep fluids down. You have a fever. You cannot pass stools or gas. Watch closely for changes in your health, and be sure to contact your doctor if: Your throat still hurts after a day or two. You do not get better as expected. Where can you learn more? Go to [email or web address] and sign in to your [employer] account. Enter J454 in the Search Health Information box to learn more about Upper GI Endoscopy: What to Expect at Home. If you do not have an account, please click on the Sign Up Now link. Current as of: January 07, 2019Content Version: 12.4 [employer]. Care instructions adapted under license by [employer] [facility]. If you have questions about a medical condition or this instruction, always ask your healthcare professional. [employer] disclaims any warranty or liability for your use of this information. documented in this encounter* Attachments The following attachments cannot be sent through Care Everywhere. * URI (Upper Respiratory Infection): Viral (Tuvaluan) documented in this encounter Summary Purpose Family History No Family History Records Found Relationship Condition Age at Onset Recorded Date/T debbi Not Specified Hypertension Unknown father Anxiety Unknown father Depression Unknown Reason for Referral Status Reason Specialty Diagnoses / Procedures Referred By Contact Referred To Contact Pending Review Radiology Diagnoses Intractable nausea and vomiting Procedures NM HEPATOBILIARY SCAN W EJECTION FRACTION Toño Blanc MD [address] [place] [address] Chief Complaint and Reason for Visit Chief Complaint Gross Hematuria, Fla nk Pain Reason for Visit Hematuria Chief Complaint Mental eval Reason for Visit Bipolar 1 disorder Depression Major depressive disorder, recurrent Suicidal ideation Chief Complaint K58.1 k30 r11.10 Additional Source Comments Reason for Visit (unrecogniz ed section and content) Status Reason Specialty Diagnoses / Procedures Re ferred By Contact Referred To Contact Diagnoses Dysphagia DX DYSPHAGIA Procedures ND ESOPHAGOGASTRODUODENOSCOPY TRANSORAL DIAGNOSTIC EGD ESOPHAGOGASTRODUODENOSCOPY Toño Blanc MD [address] [place] [address] [facility] Reason Comments Cough pt states onset last week. PT states she is taking Prednisone and Keflex for a sinus infection Status Reason Specialty Diagnoses / Procedures Referred By Contact Referred To Contact Not Required - [place]o Radiology Diagnoses Nausea with vomiting, unspecified Procedures HC NM HEPATOBILIARY IMAGING W PHARM Toño Blanc MD [address] [place] [address] [facility] Nuclear Medicine [address] [place] [id number] Reason Comments Abdominal Cramping onset this am Vaginal Bleeding spotting onset at approx 1200, patient states she thinks she might be Reason Comments Abdominal Pain Started earlier toda y, states having contraction like pain, was leaking clear fluid, 17 weeks , has hyperemesis and on Zofran pump Reason Comments Appointment INFORMATION SOURCE (unrecogn ized section and content) DATE CREATED AUTHOR 10/15/[address] [facility] DATE CREATED AUTHOR AUTHOR'S ORGANIZ ATION 03/07/2020 [facility] DATE CREATED AUTHOR AUTHOR'S ORGANIZ ATION 07/27/2021 [facility] DATE CREATED AUTHOR AUTHOR'S ORGANIZ ATION 09/24/2022 [facility] DATE CREATED AUTHOR AUTHOR'S ORGANIZ ATION 02/12/2023 [facility] DATE CREATED AUTHOR AUTHOR'S ORGANIZ ATION 03/12/2023 [facility] DATE CREATED AUTHOR AUTHOR'S ORGANIZ ATION 05/14/2023 [facility] DATE CREATED AUTHOR AUTHOR'S ORGANIZ ATION 05/16/2023 [facility] Scheduled Active and Recently Administ ered Medications (unrecognized section and content) Medication Order 10/09/2021 10/10/2021 10/11/2021 0.9 % sodium chloride bolus (COMPLETED) 1,000 mL (12.9 mL/kg), IntraVENous, at 495.9 mL/hr, Administer over 121 Minutes, ONCE, On 10/11/21 at 1515, For 1 dose 1526 (New Bag - Prov ider: Megan Hawley RN)1826 (Stopped - Provider: Megan Hawley RN) acetaminophen (TYLENOL) tablet 650 mg (COMPLETED) 650 mg, Oral, ONCE, 1 dose, On 10/11/21 at 1630, Maximum dose of acetaminophen is 4000 mg from all sources in 24 hours. 1628 (Given - Provid er: Megan Hawley RN) ketorolac (TORADOL) injection 30 mg (COMPLETED) Ketorolac is contraindicated in patients with advanced renal impairment and in patients at risk of renal failure due to volume depletion. For 65 years of age and older OR weight less than 50 kg, use 15 mg IV every 6 hours; MAX dose: 60 mg/day. Dose greater than 30 mg must be administered via intramuscular route. Do not administer for more than 5 days., 30 mg, IntraVENous, ONCE, 1 dose, On 10/11/21 at 1515, Do not administer for more than 5 days. 1527 (Given - Provid er: Megan Hawley RN) ondansetron (ZOFRAN) injection 4 mg (COMPLETED) 4 mg, IntraVENous, ONCE, 1 dose, On 10/11/21 at 1515 1528 (Given - Provid er: Megan Hawley RN) ondansetron (ZOFRAN) injection 4 mg (COMPLETED) 4 mg, IntraVENous, ONCE, 1 dose, On 10/11/21 at 1630 1628 (Given - Provid er: Megan Hawley RN) PRN Medication Order 10/09/2021 10/10/2021 10/11/2021 iopamidol (ISOVUE-370) 76 % injection 75 mL (COMPLETED) 75 mL, IntraVENous, IMG ONCE PRN, 1 dose, Starting on 10/11/21 at 1604, Until 10/11/21 at 1605, Other 1605 (Given - Provid er: Palmira Hines) Scheduled Medication Order 06/29/2022 06/30/2022 07/01/2022 0.9 % sodium chloride bolus (COMPLETED) 1,000 mL (12.7 mL/kg), IntraVENous, at 983.6 mL/hr, Administer over 61 Minutes, ONCE, On Tue06/30/22 at 1845, For 1 dose 1907 (New Bag - Provider: Rachael Lynn RN)2122 (Stopped - Provider: Rachael Lynn RN) cefTRIAXone (ROCEPHIN) 1,000 mg in sodium chloride 0.9 % 50 mL IVPB (mini-bag) (COMPLETED) 1,000 mg, IntraVENous, ONCE, 1 dose, On Tue06/30/22 at 2030, Antimicrobial Indications: Urinary Tract Infection 2024 (New Bag - Provider: Rachael Lynn RN)2122 (Stopped - Provider: Rachael Lynn, KATHERINE) promethazine (PHENERGAN) tablet 25 mg (COMPLETED) 25 mg, Oral, ONCE, 1 dose, On Tue06/30/22 at 1915 1917 (Given - Provider: Soha Lynn RN) Care Teams (unrecognized sec tion and content) Team Status: Active Member Role Status Dates Matthew Lemus DO Primary Care Provider Active Team Status: Inactive Member Role Status Dates Matthew Lemus , DO Primary Care Provider Active Matthew Leslie MD Emergency Provider Active Karri Kamara MD Admit Provider, Attending Provider Active 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 Specialty Start Date End Date Matthew Lemus [address] [place] [address] PCP - General Internal Medicine 10/11/21 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 Specialty Start Date End Date [place] [address] [place] [address] PCP - General Internal Medicine 10/11/21 Team Status: Inactive Member Role Status Dates Matthew Lemus DO Primary Care Provider Active Tae Natarajan MD Attending Provider Active 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 Specialty Start Date End Date Bridgette Lewis MD [address] [place] [address] [phone] PCP - General Internal Medicine 06/30/22 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 Specialty Start Date End Date Agustin Ramos [address] [place] [phone] PCP - General 01/27/04 Team Status: Inactive Member Role Status Dates Matthew Lemus DO Primary Care Provider Active Fany Ceballos MD Attending Provider Active Goals (unrecognized section and content) Goals may be documented in a n alternate section Source Comments (unrecognize d section and content) In the event this informatio n is protected by the Federal Confidentiality of Alcohol and Drug Abuse Patient Records regulations: The Federal rules restrict any use of the information to criminally investigate or prosecute any alcohol or drug abuse patient.[facility] FOR RECORDS PERTAINING TO PATIENTS WHO ARE OR HAVE BEEN ENROLLED IN A CHEMICAL DEPENDENCY/SUBSTANCEABUSE PROGRAM, SOME INFORMATION MAY BE OMITTED. This clinical summary was aggregated from multiple sources. Caution should be exercised in using it in the provision of clinical care. This summary normalizes information from multiple sources, and as a consequence, information in this document may materially change the coding, format and clinical context of patient data. In addition, data may be omitted in some cases. CLINICAL DECISIONS SHOULD BE BASED ON THE PRIMARY CLINICAL RECORDS. [facility] [employer] [facility]. provides no warranty or guarantee of the accuracy or completeness of information in this document.
== END 2023-04-06 12:23 | disposition home or self-care (01) ==
LOC: PST 12:23
PROVIDERS: PCP Internal Medicine; Visit Provider Urology
DX: Z01.812 Encounter for preprocedural laboratory examination (principal); R31.9 Hematuria, unspecified; R10.9 Unspecified abdominal pain
CPT/HCPCS: 80048; 85025

== ENCOUNTER 2023-04-14 07:47 | Day surgery (SDC) | payer OTHER, SELFPAY ==
[2023-04-06 13:08] VITALS: BP 106/69; PULSE 92; RESP 16; TEMP 36.2; O2SAT 100; BMI 26.3
[2023-04-14] VITALS (8 sets, daily range): BP systolic 114–128; BP diastolic 63–80; PULSE 72–94; RESP 12–18; TEMP 35.6–36.3; O2SAT 99–100; BMI 25.9
--- NOTE | 2023-04-14 | FL_ITS ---
The [address] [address] Patient Name: LULÚ CAICEDO MRN: [id number] date: 1995 Sex: F Assigned Patient Location: [facility] Current Patient Location: [facility] Accession/Order Number: [id number] Exam Date: 04/14/2023 09:50 Report Date: 04/15/2023 09:39 At the request of: BUCKY MARSHALL Procedure: FL fluoroscopy <1hr NON-READ EXAM: FL fluoroscopy <1hr NON-READ HISTORY: TECHNIQUE: FINDINGS: Please see Operative Report. Electronically authenticated by: RADIOLOGIST NO Date: 04/15/2023 09:39
--- NOTE | 2023-04-14 08:15 | ECG_ITS ---
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
[2023-04-14 08:19] LABS: HCG Qualitative NEGATIVE (NEGATIVE)
[2023-04-14] MEDS: LACTATED RINGER'S SOLUTION 1,000 ML 50 ML IV (08:30)
[2023-04-14] MEDS: CEFAZOLIN SODIUM/DEXTROSE,ISO 1 GM/50 ML IV.SOLN IV (09:20)
--- NOTE | 2023-04-14 10:22 | PM.URSON ---
Urology Surgery Operative Note Operative Note Procedure Date: 04/14/23 Time Out Performed: yes Pre-op Diagnosis: gross hematuria and flank pain Post-op Diagnosis: same as pre-op Procedures performed: #1. Cystoscopy. #2. Bilateral rigid ureteral dilation. #3. Bilateral ureteroscopy. #4. Bilateral pyeloscopy. #5. Placement of 6 [place] variable length left ureteral stent Anesthesia: General-LMA Primary Surgeon: Rishi Young Complications: none Estimated blood loss (mL): 5 Findings: #1. Bilateral distal ureteral stenosis left greater than right. #2. Bilateral ureteritis and pyelitis left much greater than right Specimens: none Drains: left-sided 6 [place] variable length ureteral stent Indications for Procedures: this lady has been having intermittent gross hematuria and intermittent bilateral flank pain left more than right. She has had miniimal urinary infection although some. She had a negative vascular workup. She now presents for oral ureteroscopy pyeloscopy and possible stent placement. She has signed an informed consent for these procedures after risks were explained. Detailed description of Procedure: The patient was brought to the operating room and placed on the operating room table in the supine position. SCDs were placed on the lower extremities and turned on and functioning during the entire case. Timeout was done by all parties in the room. We all agreed upon the patient's identification and the planned procedures for this patient. Genn. anesthesia was then administered. The patient was then repositioned into the modified dorsal lithotomy position. All pressure points were satisfactorily padded. Genitalia were sterilely prepped and draped in usual fashion.I started by passing a 22 [place] Olympus cystoscope per urethra and into the bladder. Careful panendoscopy in the bladder showed no evidence of any tumors stones or mucosal lesions. I then passed a Glidewire through the scope and cannulated the left ureter and guided up into the kidney. We had an immediate E flux of high-pressure urine coming down into the bladder. I then used an 8 and 10 [place] rigid dilator to dilate the distal left ureter. the distal 3rd of the ureter was severely stenosed.We had copious inflammatory urine coming down into the bladder. The scope was removed. I then passed a flexible ureteroscope over the wire and into the left ureter. I slowly ascended up the ureter. There was copious inflammatory debris. In order to have any visibility I had to have pressure on the irrigation bag. The wire was removed. I slowly ascended up the ureter. The ureteral mucosa was inflamed all the way up to the kidney. There was no evidence of any stones or tumors. I then did pyeloscopy. Copious inflammatory debris was also seen within the kidney. I scoped within all the calyces upper mid and lower poles. No tumors were noted. The mucosa was inflamed and friable. There were 2 Yo's plaques noted. The scope was then brought down. The wire was passed back up. The ureteroscope was removed. I then backloaded the cystoscope over the wire and then slid it into the bladder. I then slid a 6 [place] variable length ureteral stent over the wire up into the kidney and removed the wire. There were good curls in the kidney and in the bladder. Inflammatory debris continued effluxing into the bladder. I then similarly dilated the right distal ureter. It was not nearly as stenosed as the left. There was similar inflammatory debris but dramatically less then on the left side.all needle the distal 2 cm of the ureter were inflamed. The rest of the ureter was normal. Inflammatory debris was seen coming down the ureter. I then did pyeloscopy. The mucosa was significantly less friable then on the left. No tumors or stones were seen. No Yo's plaques were seen. Scope was then brought down. The ureteroscope was removed. The cystoscope was then passed back into the bladder. I then redilated the right side with the 10 [place] dilator. I elected not to place a stent on the right. The bladder was drained of its contents and the scope was then removed. She was then transferred to a [facility] bed and wheeled to PACU in stable condition. She will keep her stent in for at least a month. Scripts for Vesicare 10 mg daily and Keflex 500 mg twice a day for 2 weeks have been sent.
[2023-04-14] MEDS: SOLIFENACIN SUCCINATE 10 MG TABLET PO (10:53)
--- NOTE | 2023-04-14 11:34 | PC.NURSE ---
04/14/2023- Patient upto BR and voids moderate amount of dark colored urine without difficulty.
== END 2023-04-14 11:35 | disposition home or self-care (01) ==
PROVIDERS: PCP Internal Medicine; Visit Provider Urology
PROC: (CPT 910; principal; 2023-04-14 09:10)
DX: R31.0 Gross hematuria (principal); R10.9 Unspecified abdominal pain; F20.9 Schizophrenia, unspecified; F41.9 Anxiety disorder, unspecified; J45.909 Unspecified asthma, uncomplicated; Z79.84 Long term (current) use of oral hypoglycemic drugs; N39.41 Urge incontinence; Q62.10 Congenital occlusion of ureter, unspecified; N28.89 Other specified disorders of kidney and ureter
CPT/HCPCS: 52332; 52344; 36415; 76000; 84703; 93005; J2704

== ENCOUNTER 2023-04-16 11:40 | Emergency (ER) | payer OTHER, SELFPAY ==
[2023-04-16 11:44] VITALS: BP 128/81; PULSE 90; RESP 18; TEMP 36.6; O2SAT 99; BMI 25.7
--- NOTE | 2023-04-16 11:59 | ED.ABDPAIN1 ---
HPI - Abdominal Pain General Chief Complaint: Abdominal Pain Stated Complaint: BACK PAIN Time Seen by Provider: 04/16/23 11:45 Source: patient Mode of arrival: walk-in History of Present Illness HPI narrative: 28-year-old female presents for left abdominal and flank pain. Two days ago she had cystoscopy and had a stent placed in the left ureter. She had the cystoscopy for hematuria. the pain is severe and continuous and she's been nauseous. No fever. Related Data Home Medications Medication Instructions Recorded Confirmed alprazolam 0.25 mg tablet (Xanax) 0.25 mg PO DAILY PRN anxiety 04/06/23 04/14/23 buspirone 10 mg tablet 10 mg PO BID 04/06/23 04/14/23 famotidine 20 mg tablet (Acid 20 mg PO DAILY 04/06/23 04/14/23 Controller) levomilnacipran 20 mg capsule,24 20 mg PO DAILY 04/06/23 04/14/23 hr,extended release (Fetzima) norethindrone (contraceptive) 0.35 0.35 mg PO DAILY 04/06/23 04/14/23 mg tablet omeprazole 10 mg capsule,delayed 10 mg PO DAILY 04/06/23 04/14/23 release ondansetron 8 mg disintegrating 8 mg PO Q8H PRN nausea and vomiting 04/06/23 04/14/23 tablet plecanatide 3 mg tablet 3 mg PO DAILY 04/06/23 04/14/23 vit 137-ferrous fumarate tab PO DAILY 04/06/23 27 mg iron-folic acid 0.8 mg tablet promethazine 12.5 mg rectal 12.5 mg VT Q6H PRN nausea and 04/06/23 04/14/23 suppository vomiting ziprasidone HCl 40 mg capsule 40 mg PO DAILY 04/06/23 04/14/23 (Geodon) Previous Rx's Medication Instructions Recorded cephalexin 500 mg capsule 500 mg PO Q12H 14 days #28 caps 04/14/23 solifenacin 10 mg tablet (Vesicare) 10 mg PO DAILY #30 tabs 04/14/23 oxycodone-acetaminophen 5 mg-325 1 tab PO Q6H PRN pain #20 tabs 04/16/23 mg tablet (Percocet) Allergies Allergy/AdvReac Type Severity Reaction Status Date / Time azithromycin Allergy Mild Verified 02/27/23 07:16 lamotrigine [From Lamictal] Allergy Mild Rash Verified 04/06/23 12:38 bee venom protein (honey bee) Allergy swelling Verified 04/06/23 12:40 lurasidone [From Latuda] Allergy suicidal Verified 04/06/23 12:38 ideation Review of Systems ROS Narrative A ten point review of systems is negative except as noted above. PFSH PFS Medical History (Updated 04/16/23 @ 14:52 by Ridge Pathak MD) Anxiety ?F41.9 - Anxiety disorder, unspecified (ICD-10) Asthma ?J45.909 - Unspecified asthma, uncomplicated (ICD-10) Bipolar 1 disorder ?F31.9 - Bipolar disorder, unspecified (ICD-10) Cystitis ?N30.90 - Cystitis, unspecified without hematuria (ICD-10) Depression ?F32.A - Depression, unspecified (ICD-10) Endometriosis ?N80.9 - Endometriosis, unspecified (ICD-10) Migraines ?G43.909 - Migraine, unspecified, not intractable, without status migrainosus (ICD-10) Nausea and vomiting ?R11.2 - Nausea with vomiting, unspecified (ICD-10) PONV (postoperative nausea and vomiting) ?R11.2 - Nausea with vomiting, unspecified (ICD-10) ?Z98.890 - Other specified postprocedural states (ICD-10) Surgical History (Updated 04/14/23 @ 08:16 by Ginger Fields RN) History of cystoscopy ?Z98.890 - Other specified postprocedural states (ICD-10) History of endometrial ablation ?Z98.890 - Other specified postprocedural states (ICD-10) History of esophagogastroduodenoscopy (EGD) ?Z98.890 - Other specified postprocedural states (ICD-10) History of ovarian cystectomy ?Z98.890 - Other specified postprocedural states (ICD-10) ?Z87.42 - Personal history of other diseases of the female genital tract (ICD-10) History of umbilical hernia repair ?Z98.890 - Other specified postprocedural states (ICD-10) ?Z87.19 - Personal history of other diseases of the digestive system (ICD-10) Family History (Updated 04/06/23 @ 11:14 by Swati White) Father Anxiety Depression Other Family history of hypertension Social History (Updated 04/14/23 @ 08:17 by Ginger Fields RN) Within the past year, how often did you have a drink containing alcohol: monthly or less Smoking status: Never smoker Nicotine containing products detail: vaped for short period stopped last year Non-prescribed substance use: denies use 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 General: The patient appears comfortable Skin: Warm, dry, no pallor noted. There is no rash noted. Head: Normocephalic, atraumatic Eye: Normal conjunctiva, no drainage Ears, Nose, Mouth, and Throat: oral mucosa is moist. Nares patent. Cardiovascular: Regular Rate and Rhythm Respiratory: Patient is in no distress, no accessory muscle use, lungs are clear to auscultation, no wheezing, rales or rhonchi Back: non-tender GI: no tenderness to palpation, no masses appreciated. No rebound, guarding, or rigidity noted. Musculoskeletal: The patient has no evidence of calf tenderness, no pitting edema, symmetrical pulses noted bilaterally Neurological: A&O, normal speech Psychiatric: Cooperative Constitutional Vital Signs, click to edit/add: Last Vital Signs Temp 97.9 F 04/16/23 11:44 Pulse 90 04/16/23 11:44 Resp 18 04/16/23 11:44 BP 128/81 04/16/23 11:44 Pulse Ox 99 04/16/23 11:44 Course Vital Signs Vital signs: Vital Signs Temperature 97.9 F 04/16/23 11:44 Pulse Rate 90 04/16/23 11:44 Respiratory Rate 18 04/16/23 11:44 Blood Pressure 128/81 04/16/23 11:44 Pulse Oximetry 99 04/16/23 11:44 Temperature 97.9 F 04/16/23 11:44 Pulse Rate 90 04/16/23 11:44 Respiratory Rate 18 04/16/23 11:44 Blood Pressure 128/81 04/16/23 11:44 Pulse Oximetry 99 04/16/23 11:44 MDM - Abdominal Pain MDM Narrative Medical decision making narrative: CT scan per radiologist shows appropriate stent placement. No evidence of urinary tract infection. Her pain is much better controlled now and she is discharged home on Percocet. Treatment diagnosis and follow-up were discussed with the patient. Differential Diagnosis Differential diagnosis: Likely abdominal pain and other (pyelonephritis, ureteral obstruction, hydronephrosis) Lab Data Attestation: I reviewed the patient's lab results. Labs: Lab Results 04/16/23 Range/Units 12:02 WBC 12.0 H (4.0-11.0) 10^3/uL RBC 4.31 (4.20-5.40) 10^6/uL Hgb 13.3 (12.0-16.0) g/dL Hct 38.6 (36.0-48.0) % MCV 89.6 (81.0-99.0) fL MCH 30.9 (26.7-34.0) pg MCHC 34.5 (29.9-35.2) g/dL RDW 11.7 (11.0-15.0) % Plt Count 289 (150-450) 10^3/uL MPV 10.9 (9.5-13.5) fL Neut % (Auto) 76.8 H (43.0-75.0) % Lymph % (Auto) 17.0 L (20.5-60.0) % [place] % (Auto) 5.3 (1.7-12.0) % Eos % (Auto) 0.0 L (0.9-7.0) % Baso % (Auto) 0.6 (0.2-2.0) % Neut # (Auto) 9.2 H (1.4-6.5) 10^3/uL Lymph # (Auto) 2.0 (1.2-3.8) 10^3/uL [place] # (Auto) 0.6 (0.3-0.8) 10^3/uL Eos # (Auto) 0.0 (0.0-0.7) 10^3/uL Baso # (Auto) 0.1 (0.0-0.1) 10^3/uL Abs Immat Gran (auto) 0.03 (0.00-0.03) 10^3/uL Imm/Tot Granulo (auto) 0.3 (0.0-0.5) % Sodium 139 (136-145) mmol/L Potassium 3.8 (3.5-5.1) mmol/L Chloride 103 (98-107) mmol/L Carbon Dioxide 25.8 (21.0-32.0) mmol/L Anion Gap 14.0 BUN 10.0 (7.0-18.0) mg/dL Creatinine 1.01 (0.55-1.02) mg/dL Est GFR ( Amer) >60 (>=60) Est GFR (Non-Af Amer) >60 (>=60) BUN/Creatinine Ratio 9.9 Glucose 97 (74-106) mg/dL Calcium 9.2 (8.5-10.1) mg/dL Serum HCG, Qual Negative (NEGATIVE) Urine Color Dk. brown (YELLOW) Urine Clarity Cloudy A (CLEAR) Urine pH 6.0 (5.0-9.0) Ur Specific [place] >=1.030 A (1.005-1.025) Urine Protein >=300 A (NEG/TRACE) mg/dL Urine Glucose (UA) Negative (NEGATIVE) mg/dL Urine Ketones Color interference A (NEGATIVE) mg/dL Urine Occult Blood Large A (NEGATIVE) Urine Nitrite Color interference A (NEGATIVE) Urine Bilirubin Negative (NEGATIVE) Urine Urobilinogen 1.0 (0.2-1.0) EU/dL Ur Leukocyte Esterase Trace A (NEGATIVE) Urine RBC >100 A (0-2) #/HPF Urine WBC 2-5 A (NONE SEEN) #/HPF Ur Squamous Epith Cells None seen (NONE/RARE) #/LPF Urine Crystals None seen (None Seen) #/HPF Urine Bacteria None seen (NONE SEEN) #/HPF Urine Casts None seen (NONE SEEN) #/LPF Urine Mucus None seen (NONE SEEN) Imaging Data CT scan - abdomen: Radiologist's impression: Procedure: CT abdomen pelvis w con CT ABDOMEN AND PELVIS WITH CONTRAST: INDICATION: recent ureteral stent placement, flank pain. COMPARISON: None. TECHNIQUE: Helical CT images of the abdomen and pelvis were obtained after the administration of intravenous contrast. Dose reduction techniques were achieved by using automated exposure control and/or adjustment of mA and/or kV according to patient size and/or use of iterative reconstruction technique. FINDINGS: LOWER CHEST: The visualized lung bases are clear. LIVER: Unremarkable. GALLBLADDER AND BILIARY SYSTEM: Unremarkable. SPLEEN: Unremarkable. PANCREAS: Unremarkable. ADRENAL GLANDS: Unremarkable. KIDNEYS AND URETERS: The kidneys enhance symmetrically. There is a left ureteral stent in place. No evidence of stones along the course of the ureteral stent. There is no hydronephrosis. No focal renal lesions. BLADDER: Unremarkable. GASTROINTESTINAL TRACT: No evidence of bowel obstruction or colitis. Normal appendix. VASCULATURE: Unremarkable. RETROPERITONEUM AND LYMPH NODES: No lymphadenopathy or mass. PERITONEUM/MESENTERY: No abdominal ascites. No free air. PELVIS: No pelvic ascites or lymphadenopathy. BODY WALL: Unremarkable. BONES: No acute abnormality. IMPRESSION: Left ureteral stent in place. No hydronephrosis. Electronically authenticated by: GLORIA HANSON Date: 04/16/2023 14:14 Discharge Plan Discharge Chief Complaint: Abdominal Pain Clinical Impression: Renal colic Patient Disposition: Home, Self-Care Time of Disposition Decision: 14:54 Condition: Good Mode of Transportation: Private Vehicle Prescriptions / Home Meds: New oxycodone-acetaminophen [Percocet] 5-325 mg tablet 1 tab PO Q6H PRN (Reason: pain) Qty: 20 0RF No Action plecanatide 3 mg tablet 3 mg PO DAILY buspirone 10 mg tablet 10 mg PO BID ziprasidone HCl [Geodon] 40 mg capsule 40 mg PO DAILY Rx Instructions: give with food (meal/snack) Fetzima 20 mg capsule,extended release 24 hr 20 mg PO DAILY ondansetron 8 mg tablet,disintegrating 8 mg PO Q8H PRN (Reason: nausea and vomiting) Rx Instructions: 1st dose 1-2 hr before radiation alprazolam [Xanax] 0.25 mg tablet 0.25 mg PO DAILY PRN (Reason: anxiety) famotidine [Acid Controller] 20 mg tablet 20 mg PO DAILY [id number] 27mg iron- 0.8 mg tablet PO DAILY promethazine 12.5 mg suppository 12.5 mg VT Q6H PRN (Reason: nausea and vomiting) norethindrone (contraceptive) 0.35 mg tablet 0.35 mg PO DAILY omeprazole 10 mg capsule,delayed release(DR/EC) 10 mg PO DAILY cephalexin 500 mg capsule 500 mg PO Q12H 14 Days Qty: 28 0RF solifenacin [Vesicare] 10 mg tablet 10 mg PO DAILY Qty: 30 1RF Instructions: Renal Colic (ED) Stand Alone Forms: Portal Instructions Referrals: MATTHEW LEMUS [Primary Care Provider] - 1 week
[2023-04-16] MEDS: ONDANSETRON PF 4 MG/2 ML VIAL IV (12:09)
[2023-04-16] MEDS: 0.9 % SODIUM CHLORIDE 1,000 ML 1000 ML IV (12:09)
[2023-04-16 12:15] LABS: Basophils Absolute Auto 0.1 10^3/uL (0.0-0.1); Basophils Percent Auto 0.6 % (0.2-2.0); Hematocrit 38.6 % (36.0-48.0); Hemoglobin 13.3 g/dL (12.0-16.0); Immature Granulocytes Abs Auto 0.03 10^3/uL (0.00-0.03); Immature Granulocytes Pct Auto 0.3 % (0.0-0.5); Mean Corpuscular HGB Conc 34.5 g/dL (29.9-35.2); Mean Corpuscular Hemoglobin 30.9 pg (26.7-34.0); Mean Corpuscular Volume 89.6 fL (81.0-99.0); Mean Platelet Volume 10.9 fL (9.5-13.5); Monocytes Absolute Auto 0.6 10^3/uL (0.3-0.8); Monocytes Percent Auto 5.3 % (1.7-12.0); Neutrophils Absolute Auto 9.2 10^3/uL (1.4-6.5); Neutrophils Percent Auto 76.8 % (43.0-75.0); Platelet Count 289 10^3/uL (150-450); Red Blood Count 4.31 10^6/uL (4.20-5.40); Red Cell Distribution Width 11.7 % (11.0-15.0)
[2023-04-16 12:21] LABS: BUN Creatinine Ratio 9.9; Calcium 9.2 mg/dL (8.5-10.1); Carbon Dioxide 25.8 mmol/L (21.0-32.0); Chloride 103 mmol/L (98-107); Estimated GFR (African America >60 (>=60); Estimated GFR (Non-African Ame >60 (>=60); Glucose 97 mg/dL (74-106); Potassium 3.8 mmol/L (3.5-5.1); Sodium 139 mmol/L (136-145)
[2023-04-16 12:24] LABS: Bilirubin Urine NEGATIVE (NEGATIVE); Blood Urine LARGE (NEGATIVE); Clarity Urine CLOUDY (CLEAR); Color Urine DK. BROWN (YELLOW); Glucose Urine UA NEGATIVE (NEGATIVE); HCG Qualitative NEGATIVE (NEGATIVE); Leukocyte Esterase Urine TRACE (NEGATIVE); Protein Urine >=300 mg/dL (NEG/TRACE); Specific Gravity Urine >=1.030 (1.005-1.025)
[2023-04-16 12:29] LABS: Ketones Urine COLOR INTERFERENCE mg/dL (NEGATIVE)
[2023-04-16 12:30] LABS: Bacteria Urine NONE SEEN #/HPF (NONE SEEN); Cast Seen? NONE SEEN #/LPF (NONE SEEN); Crystals Seen? None Seen #/HPF (None Seen); Mucus Urine NONE SEEN (NONE SEEN); Nitrite Urine COLOR INTERFERENCE (NEGATIVE); RBC Urine >100 #/HPF (0-2); Squamous Epithelial Cell Urine NONE SEEN #/LPF (NONE/RARE)
--- NOTE | 2023-04-16 12:35 | CT_ITS ---
The [address] [address] Patient Name: LULÚ CAICEDO MRN: [id number] date: 1995 Sex: F Assigned Patient Location: ER Current Patient Location: ER Accession/Order Number: [id number] Exam Date: 04/16/2023 12:55 Report Date: 04/16/2023 14:14 At the request of: LUIS HODGES Procedure: CT abdomen pelvis w con CT ABDOMEN AND PELVIS WITH CONTRAST: INDICATION: recent ureteral stent placement, flank pain. COMPARISON: None. TECHNIQUE: Helical CT images of the abdomen and pelvis were obtained after the administration of intravenous contrast. Dose reduction techniques were achieved by using automated exposure control and/or adjustment of mA and/or kV according to patient size and/or use of iterative reconstruction technique. FINDINGS: LOWER CHEST: The visualized lung bases are clear. LIVER: Unremarkable. GALLBLADDER AND BILIARY SYSTEM: Unremarkable. SPLEEN: Unremarkable. PANCREAS: Unremarkable. ADRENAL GLANDS: Unremarkable. KIDNEYS AND URETERS: The kidneys enhance symmetrically. There is a left ureteral stent in place. No evidence of stones along the course of the ureteral stent. There is no hydronephrosis. No focal renal lesions. BLADDER: Unremarkable. GASTROINTESTINAL TRACT: No evidence of bowel obstruction or colitis. Normal appendix. VASCULATURE: Unremarkable. RETROPERITONEUM AND LYMPH NODES: No lymphadenopathy or mass. PERITONEUM/MESENTERY: No abdominal ascites. No free air. PELVIS: No pelvic ascites or lymphadenopathy. BODY WALL: Unremarkable. BONES: No acute abnormality. CT/CT abdomen pelvis w con IMPRESSION: Left ureteral stent in place. No hydronephrosis. Electronically authenticated by: GLORIA HANSON Date: 04/16/2023 14:14
[2023-04-16] MEDS: MORPHINE SULFATE 4 MG/ML VIAL IV ×2 (12:37→13:48)
== END 2023-04-16 15:03 | disposition home or self-care (01) ==
PROVIDERS: Emergency Provider Emergency Medicine; PCP Internal Medicine
DX: N23 Unspecified renal colic (principal); F41.9 Anxiety disorder, unspecified; F31.9 Bipolar disorder, unspecified; J45.909 Unspecified asthma, uncomplicated; Z98.890 Other specified postprocedural states; Z79.899 Other long term (current) drug therapy; Z87.19 Personal history of other diseases of the digestive system; Z87.42 Personal history of other diseases of the female genital tract
CPT/HCPCS: 36415; 74177; 80048; 81001; 84703; 85025; 96374; 96375; 96376; 99285; Q9967

== ENCOUNTER 2023-06-21 08:58 | Outpatient (OUT) | payer OTHER, SELFPAY ==
--- NOTE | 2023-06-21 09:02 | US_ITS ---
The [address] [address] Patient Name: LULÚ CAICEDO MRN: [id number] date: 1995 Sex: F Assigned Patient Location: US Current Patient Location: Accession/Order Number: [id number] Exam Date: 06/21/2023 09:03 Report Date: 06/21/2023 10:15 At the request of: CASEY DAVIDSON Procedure: US pelvis w/ transvaginal EXAMINATION: US pelvis w/ transvaginal HISTORY: LLQ PAIN COMPARISON: No relevant comparison available. FINDINGS: The uterus is normal in size, contour and myometrial echotexture measuring 7.3 x 3.1 x 4.9 cm. The uterus is anteverted and anteflexed. Endometrium measures 3 mm. The right ovary is not visualized The left ovary measures 2.5 x 1.3 x 1.7 cm. Normal color and Doppler flow. Normal subcentimeter follicles No free fluid US/US pelvis w/ transvaginal IMPRESSION: Nonvisualization of the right ovary Otherwise normal exam Electronically authenticated by: BREA VARGAS Date: 06/21/2023 10:15
--- OUTSIDE RECORDS SUMMARY | 2023-06-21 09:08 | XMS_ITS | CCD ---
Author Name Unknown Address [address] [place] [address] Organization [facility] Care Team Providers Care [employer] Worker Name Role Phone Lisseth Johnson Primary Care Provider [phone] TOÑO BLANC Admitting Unavailable TOÑO BLANC Attending Unavailable LISSETH JOHNSON Primary Care Unavailable TOÑO BLANC Referring Unavailable LISSETH JOHNSON Primary Care Unavailable Lisseth Johnson Primary Care Provider BRIANA RUBIO Referring Unavailable LISSETH JOHNSON Primary Care Unavailable MATTHEW LEMUS Primary Care Physician Matthew Lemus Primary Care Provider Unavailable Primary Care Physician Unavailab le Lisa Primary Care Physician Unavailab le Unavailable Primary Care Physician Unavailab Bridgette Bennett Primary Care Physician Bridgette Talavera Unavailable Unavailable Tae Natarajan Unavailable Bridgette Lewis Primary Care Physician Julianava ilBridgette Trimble Primary Care Physician Unava ilKaleigh Stewart Primary Care Physician DO Matthew Arango Primary Care Provider [phone] MD Tae Natarajan Attending Provider [phone] Kaleigh Guevara Primary Care Physician Bridgette Medina Primary Care Physician Julianava Maricel Gallegos Primary Care Physician Unavailab Maricel Crespo Primary Care Physician Unavailab Bridgette Bennett Primary Care Physician Julianava ilBridgette Trimble Primary Care Physician Julianava ilBridgette Trimble Primary Care Physician Bridgette Talavera MD Primary Care Provider DR MATTHEW LEMUS Primary Care Unavailable LETY ., DR PEÑA [...] NOGUEIRA Consulting Unavailable NAIMA, CHUY Admitting Unavailable NAIMA, CHUY Attending Unavailable LETY ., DR PEÑA Consulting [...] Attending Unavailable LUPIS ., ERNESTINE Consulting Unavailable YUUZIEL, DR CASTRO Primary Care Unavailable LETY ., [...] Attending Unavailable JEFERSON, DR CASTRO Admitting Unavailable VICKY .WM Consulting UnavailISIDRO Manrique Consulting Unavailable GOVIND JOHNSTON Consulting Unavailable Agustin Ramos Primary Care Provider DO Matthew Lemus Primary Care Provider MD Matthew Leslie Emergency Provider [phone] MD Karri Kamara Admit Provider MD Karri Kamara Attending Provider [phone] Sarah Anderson Unavailable CASEY DAVIDSON Referring Unavailable BRIDGETTE LEWIS Primary Care Unavailable BRIDGETTE LEWIS Primary Care Unavailable DEREJE VALERIO Admitting Unavailable DEREJE VALERIO Attending Unavailable VINOD CLARK Attending Unavailable BRDIGETTE LEWIS Primary Care Unavailable Asaad, Imad Unavailable DO Matthew Lemus Primary Care Provider [phone] MD Fany Ceballos Attending Provider [phone] Rishi MARSHALL Attending Unavailable Rishi MARSHALL Attending Unavailable BRIDGETTE LEWIS Primary Care Unavailable Rishi MARSHALL Attending Unavailable BRIDGETTE LEWIS Primary Care Unavailable Asaad, Imad Attending Unavailable Asaad, Imad Admitting Unavailable Matthew Lemus Primary Care Unavailable Asaad, Imad Admitting Unavailable Karines, Matthew Primary Care Unavailable Asaad, Imad Attending Unavailable Karines, Matthew Primary Care Unavailable Casper Arteaga Attending Unavailab le Casper Arteaga Admitting Unavailab le Mariah, Matthew Primary Care Unavailable Karri Kamara Attending Unavailable Karri Kamara Admitting Unavailable JORGE LAMAS Attending Unavailable MARIAHMATTHEW Referring Unavailable MARIAHMATTHEW L Primary Care Unavailable CASEY DAVIDSON Attending Unavailable Allergies Allergy Classification Reported Allergen(s) Allergy Type Date of Onset Reaction(s) Facility (13 sources) bee venom Propensity to adverse reactions to drug 5 [place] (14 sources) Erythromycin; Translations: [ERYTHROMYCIN] Drug Allergy 5 [place] (20 sources) Azithromycin; Translations: [azithromycin] Drug Allergy 9 Unknown (qualifier value) [facility] (4 sources) Bee pollen; Translations: [bee pollen] Drug Allergy Edema (finding) [facility] (4 sources) Bee/Wasp/Ant venom; Translations: [Bee Stings] Drug allergy Unknown (qualifier value) [facility] (14 sources) lamoTRIgine; Translations: [Lamictal] Drug Allergy [facility] (10 sources) lamoTRIgine; Translations: [LAMOTRIGINE] Drug Allergy 2 [facility] (1 source) Azithromycin Drug Allergy [facility] (2 sources) bee venom Drug allergy (disorder) [facility] (1 source) lamoTRIgine Drug Allergy [facility] (5 sources) lurasidone; Translations: [LURASIDONE] Drug Allergy 3 SUICIDAL, Depression [facility] (1 source) Azithromycin; Translations: [Zithromax Z-Oscar] Drug Allergy [facility] Repository (1 source) Azithromycin Drug Allergy 3 [facility] (1 source) lamoTRIgine Drug Allergy 3 [facility] (1 source) lurasidone Drug Allergy 3 [facility] (1 source) BEE VENOM PROTEIN (HONEY BEE); Translations: [BEE VENOM PROTEIN (HONEY BEE)] Propensity to adverse reactions to drug (disorder) 5 [facility] Repository Medications Current Medications Medication Drug Class(es) Dates Sig (Normalized) Sig (Original) acetaminophen 325 mg / oxyCODONE hydrochloride 5 mg oral tablet (2 sources) Opioid Agonist take 1 tablet by mouth [...] (1 source) Start: 10-05-2019 lactated ringers infusion cefuroxime 250 mg oral tablet (1 source) Cephalosporin Antibacterial take 1 tablet by mouth every twelve hours Cefuroxime Axetil 250 MG 1 tablet Orally every 12 hrs Active cephalexin 500 mg oral capsule (3 sources) Cephalosporin Antibacterial Start: 03-10-2020 End: 03-17-2020 [...] 2 times daily 0 Active Drospirenone-Ethinyl Estradiol (5 sources) Progestin, Estrogen Start: 02-02-2023 take 1 [...] tablet (20 sources) Histamine-2 Receptor Antagonist Start: 3 take 10 mg by mouth once daily at bedtime Famotidine (Pepcid) 20 mg Tablet Active 10 MG PO Daily at bedtime February 01, 2023 11:00pm Start: 02-02-2023 take 1 tablet by marion th once daily at bedtime Famotidine (Pepcid) 20 [...] Start: 10-05-2019 fentaNYL (SUBLIMAZE) injection 25 mcg fexofenadine hydrochloride 180 mg oral tablet (1 source) Histamine-1 Receptor Antagonist Start: 05-18-2023 take 1 tablet by mouth once daily Fexofenadine (Soha) 180 mg Tablet Active 180 MG PO Daily May 18, 2023 12:00am fluticasone propionate 0.05 mg/actuat metered dose nasal [...] as needed. take 1 tablet by marion th three times daily as needed hydrOXYzine (ATARAX) 10 MG tablet Take 10 mg by mouth 3 times daily as needed for Itching 0 Active 24 hr levomilnacipran 20 mg extended release oral capsule (7 sources) Serotonin and Norepinephrine Reuptake Inhibitor Start: 05-18-2023 take 1 capsule by mouth once daily Levomilnacipran (Fetzima) 20 mg capsule,extended release 24 hr Active 40 MG PO Daily May 18, 2023 1:58pm Start: 02-05-2023 End: 05-18-2023 take 1 capsule by mouth once daily Levomilnacipran (Fetzima) 20 mg Capsule,Extended Release 24 Hr Discontinued 20 MG PO Daily 60 February 04, 2023 11:00pm May 18, 2023 1:58pm methylPREDNISolone 4 mg oral tablet (1 source) [...] omeprazole 20 mg delayed release oral capsule (6 sources) Proton Pump Inhibitor Start: 02-02-2023 take [...] 09/04/21 Status: Ordered take 1 capsule by [facility] once daily in the morning phentermine 37.5 MG capsule Take 37.5 mg by mouth every morning. 0 Active Plecanatide (Trulance) 3 mg Tablet (1 source) Start: 05-18-2023 take 1 tablet by mouth once daily Plecanatide (Trulance) 3 mg Tablet Active 3 MG PO Daily May 18, 2023 12:00am predniSONE 10 mg oral tablet (1 source) Start: 03-13-2020 End: 03-18-2020 take 1 tablet by mouth twice daily predniSONE (DELTASONE) 10 MG tablet Take 1 tablet by mouth 2 times daily for 5 days 10 tablet 0 03/13/2020 03/18/2020 Active solifenacin succinate 10 mg oral tablet (2 sources) Cholinergic Muscarinic Antagonist Solifenacin Succinate 10 MG Oral for 30 Days Active tamsulosin hydrochloride 0.4 mg oral capsule (1 source) alpha-Adrenergic Jade Start: 04-28-2023 take 1 capsule by mouth once daily Flomax 0.4 mg Cap 0.4 mg = 1 cap(s), Oral, Daily, # 30 cap(s), Refills(s) 0, Pharmacy: [facility]/pharmacy #[id number], 165, cm, 12/17/21 8:42:00 EDT, [...] Status: Ordered ziprasidone 20 mg oral capsule (7 sources) Atypical Antipsychotic Start: 05-18-2023 take 40 mg by mouth once daily Ziprasidone Hcl Active 40 MG PO Daily after supper May 18, 2023 2:02pm Start: 02-05-2023 End: 05-18-2023 take 20 mg by mouth once daily Ziprasidone Hcl Discont inued 20 MG PO Daily after supper February 04, 2023 11:00pm May 18, 2023 2:02pm take 1 capsule by [facility] at bedtime Geodon 40 MG 1 capsule with food Orally HS Active take 1 capsule by [facility] every twelve hours Geodon 20 MG 1 capsule with food Orally Twice a day Active Completed/Discontinued Medications Medication Drug Class(es) Dates Sig (Normalized) Sig (Original) acetaminophen 325 mg oral tablet (1 source) Start: 10-11-2021 End: 10-11-2021 acetaminophen (TYLENOL) tablet 650 mg Start: 10-11-2021 End: 10-11-2021 acetaminophen (TYLENOL) tabl et 650 mg acetaminophen 300 mg / butalbital 50 mg / caffeine 40 mg oral capsule (19 sources) Barbiturate, Central Nervous System Stimulant, Methylxanthine Start: 01-19-2022 End: 02-02-2023 take 1 capsule by mouth every four hours Razakhvvzj-Elnarzlpdhtla-Nngo (Fioricet) 50-300-40 mg Capsule Discontinued 1 CAP [...] 09/03/21 Status: Ordered take 3 tablets by [facility] once daily ARIPiprazole (ABILIFY) 5 MG tablet Take 15 mg by mouth daily 0 Active ascorbic acid 250 mg chewable tablet (17 sources) Vitamin C take 2 tablets by [facility] once daily Vitamin C 250 mg chewable tablet chew 2 tablets by oral route daily take 1 tablet by mouth once shamar y vitamin C (ASCORBIC ACID) 500 MG tablet Take 500 mg by mouth daily 0 Active bisoprolol fumarate 5 mg oral tablet (4 sources) beta-Adrenergic Jade Start: 01-08-2021 End: 02-02-2023 take 5 mg by mouth once daily Bisoprolol Fumarate Discontinued 5 MG PO Daily January 07, 2021 11:00pm February 02, 2023 8:41pm cefdinir 300 mg oral capsule (3 sources) Cephalosporin Antibacterial Start: 02-02-2023 End: 05-18-2023 take 300 mg by mouth twice daily Cefdinir Discontinued 300 MG PO Twice daily February 01, 2023 11:00pm May 18, 2023 2:02pm cefTRIAXone (ROCEPHIN) 1,000 mg in sodium chloride [...] # 2 tab(s), Refills(s) 0, Pharmacy: [facility]/pharmacy #[id number], 165, cm, 12/17/21 8:42:00 EDT, [...] desvenlafaxine 100 mg extended release oral tablet (17 sources) Serotonin and Norepinephrine Reuptake Inhibitor Start: [...] procedure., # 2 cap(s), Refills(s) 0, Pharmacy: [facility], 165, cm, 09/04/21 9:50:00 EDT, [...] # 2 tab(s), Refills(s) 0, Pharmacy: [facility]/pharmacy #[id number], 165, cm, 12/17/21 8:42:00 EDT, [...] Not-Taking lurasidone hydrochloride 60 mg oral tablet (7 sources) Atypical Antipsychotic Start: 02-02-2023 End: 02-05-2023 [...] paliperidone 6 mg extended release oral tablet (7 sources) Atypical Antipsychotic Start: 01-12-2021 End: 02-10-2022 take 6 mg by mouth at bedtime Paliperidone Discontinued 6 MG PO Bedtime 15 January 11, 2021 11:00pm February 10, 2022 1:22pm take 1 tablet by marion th once daily in the morning paliperidone (INVEGA) 9 MG extended rele ase tablet Take 9 mg by mouth every morning 0 Active PEAK FLOW METER (8 sources) Start: 05-17-2022 PEAK FLOW METE R 05/17/2022 USE QAM AND PRN TO MONITOR ASTHMA pramipexole dihydrochloride 0.5 mg oral tablet (7 sources) Nonergot Dopamine Agonist Start: 01-08-2021 End: [...] 06-17-2022 Episodic Other aftercare (1 source) Other acute dialysis nurse (current) drug therapy; Translations: [OTH TELEVISION PROGRAM DIRECTOR CURRENT DRUG THERAPY] Onset: 09-20-2022 Episodic Other complications of (1 source) Other mental disorders complicating , third trimester; Translations: [OTH MENTAL D/O COMP PREG THIRD TRI] Onset: 09-20-2022 Episodic Other complications of (4 sources) Other specified related conditions, second trimester; Translations: [OTH SPEC PREG RELATED COND 2ND TRI] Onset: 09-04-2022 Episodic Other disorders of stomach and duodenum (2 sources) Delayed gastric emptying; Translations: [Functional dyspepsia] Episodic [...] VAGINA] Onset: 07-07-2022 Episodic Other gastrointestinal disorders (2 sources) Irritable bowel syndrome characterized by constipation; Translations: [...] , first trimester] Onset: 03-17-2022 Episodic Other screening for suspected conditions (not mental disorders or infectious disease) (7 sources) Encounter for screening for malignant neoplasm of cervix; Translations: [Encounter for screening for diabetes mellitus] Onset: 07-06-2022 Episodic Other upper respiratory disease (8 sources) Allergic disposition; Translations: [Allergic rhinitis due to other allergen] Onset: 05-17-2022 Chronic Other upper respiratory disease (20 sources) Other allergic rhinitis Onset: 05-17-2022 Chronic Other upper respiratory disease (5 sources) Allergic rhinitis; Translations: [Allergic rhinitis due to other allergen] Onset: 06-15-2022 Chronic Other upper respiratory infections (4 sources) Acute frontal sinusitis; Translations: [Viral upper respiratory tract infection] Episodic Personality disorders (15 sources) Borderline personality disorder; Translations: [Borderline personality disorder] Onset: 11-10-2021 Chronic Polyhydramnios and other problems of amniotic cavity (4 sources) premature rupture of membranes, unspecified as to length of time between rupture and onset of labor, third trimester; Translations: [PT PROM UNS TM BTW RUPT LABR 3 TRI] Onset: 09-16-2022 Episodic Residual codes; unclassified (4 sources) Hallucinations; Translations: [Hallucinations, unspecified] 01-08-2021 Episodic [...] EXPOS COVID-19] Onset: 05-28-2022 Urinary tract infections (5 sources) Cystitis; Translations: [Cystitis, unspecified without hematuria] [...] RELATED COND 1ST TRI] Onset: 05-26-2022 Episodic Ovarian cyst (1 source) Corpus luteum [...] 06-08-2016 Episodic Suicide and intentional self-inflicted injury (6 sources) Suicidal thoughts; Translations: [Suicidal ideations] Onset: 02-02-2023 01-08-2021 Episodic Results Test Name Value Interpretation Reference Range Facility RAD - CT Reporton 05-25-2023 RAD - CT Report [id number] #1.00TIFF Normal [facility] HCG ( test) Jacquelyn d Ql (U)Ordered By: Fany Ceballos on 05-19-2023 HCG ( test) Ql (U) Negative [facility] HCG,Urineon 05-19-2023 Beta HCG ( test) Ql (U) Negative Normal [facility] Comment on above: Result Comment: PERF ORMED BY: [place] [address] PATHOLOGIST BRAIDER SETTER MOISES VELASCO M.D. Performed By: #### U HCG #### [place] [address] [facility] 05-19-2023 L Specimen: [id number] Received: 05/20/23 Status: RUDY [place] Num: [id number] Spec Type: Surgical Subm Dr: Fany Ceballos MD Tissues: A Duodenum - Biopsy (DUODENAL BX) B Esophagus Biopsy (ESOPHAGUS BX) Procedures: Mary Anne ARCEO/Jaren L4/2 Age/ Patient Sex Location Account Attending Physician Lulú Gaitan 28/F [id number] Fany Ceballos MD SPEC NUM: [id number] RECD: 05/20/23 STATUS: RUDY [place] NUM: [id number] PHILIP: 05/19/23- [facility] DR: Fany Ceballos MD ENTERED: 05/20/[address] [facility] [address]: SPEC TYPE: Surgical DEPT: S ORDERED: HE/4, Gross/Micro L4/2 ORDERED: HE/4, Gross/Micro L4/2 Pathological Diagnosis A. Duodenum, Biopsy: No Significant Pathologic Abnormality. B. Esophagus, Biopsy: Reflux-type Changes. - No Evidence Of Eosinophilic Esophagitis. Clinical Information Vomiting, rule out celiac, rule out Mcgregor's Gross Description A. Received in formalin labeled with the patient's name, date of and duodenal biopsy rule out celiac are two weiss tissues averaging 0.3 x 0.2 x 0.2 cm. Entirely submitted in one cassette labeled A1. B. Received in formalin labeled with the patient's name, date of and esophagus biopsy rule out Mcgregor's is one weiss tissue measuring 0.2 cm. Entirely submitted in one cassette labeled B1. Specimen: [id number] Received: 05/20/23 Status: RUDY [facility] Num: [id number] Spec Type: Surgical Subm Dr: Fany Ceballos MD Tissues: A Duodenum - Biopsy (DUODENAL BX) B Esophagus Biopsy (ESOPHAGUS BX) Procedures: HE/4, Gross/Micro L4/2 Patient: Lulú Gaitan [id number] (Continued) Specimen: [id number] Received: 05/20/23 (Continued) Signed (signature on file) Cielo Trimble MD 05/24/23 230 Specimen: [id number] Received: 05/20/23 Status: RUDY [place] Num: [id number] Spec Type: Surgical Subm Dr: Fany Ceballos MD Tissues: A Duodenum - Biopsy (DUODENAL BX) B Esophagus Biopsy (ESOPHAGUS BX) Procedures: MARIELOS Gross/Micro L4/2 Patient: Lulú Gaitan [id number] (Continued) Specimen: [id number] Received: 05/20/23 (Continued) Microscopic Description A. Two H E slides reviewed. The microscopic examination confirms the diagnosis. B. Two H E slides reviewed. The microscopic examination confirms the diagnosis. CPT Codes 46048o9 Specimen: [id number] Received: 05/20/23 Status: RUDY [place] Num: [id number] Spec Type: Surgical Subm Dr: Fany Ceballos MD Tissues: A Duodenum - Biopsy (DUODENAL BX) B Esophagus Biopsy (ESOPHAGUS BX) Procedures: HE/Demetria, Gross/Micro L4/2 Patient: Lulú Gaitan [id number] (Continued) Signed (signature on file) Cielo Trimble MD 05/24/23 230 [facility] CT abdomen pelvis w conon CT abdomen pelvis w con [facility] Main [place] [address] [place] [address] CT Scan Report Signed Patient: Lulú Gaitan MR#: [id number] 4 : 1995 Acct:[id number] Age/Sex: 28 / F ADM Date: 05/12/23 Loc: CT Room: Type: [facility] Attending Dr: Fany Ceballos MD Copies [...] Uterus is grossly unremarkable. No adnexal mass.] Peritoneum/Retroperi toneum:No free air, free fluid or lymphadenopathy. Abd [...] Pham Jr., D.O.05/12/2023 10:29 AM Dictation Location: [place] [address] Transcribed By: [facility] 05/12/23 1029 Dictated By: Samy Pham Jr, DO 05/12/23 1023 Signed By: 05/12/23 1029 [facility] Consent for Procedure/Surger [facility] 05-11-2023 Consent for Procedure/Surgery [id number]#1.00TIFF [facility] Ambulatory Visit Summaryon 1 07-11-2022 Ambulatory Visit Summary LULÚ GAITAN :1995 Visit Date:05/10/2023 Ambulatory Visit Instructions Your Diagnosis Gross hematuria Flank pain Foreign body in bladder Your Care Team Attending Physician - ROLANDO DEVLIN, Rishi Ghosh Primary Care Physician - MATTHEW LEMUS DO [...] Performed Stent removal (05/10/2023), Cystoscopy (09/29/2021), EGD (esophagogastroduode noscopy) gastric outlet reduction, Endometrial ablation, Ovarian cystectomy. Discharge Vitals Heart Rate (Peripheral) 72 Blood Pressure 117/78 Height 165 cm Height 65 in Weight 79 kg Weight 173.8 lb BMI 29.02 What to do next Scheduled Follow-Up Appointments Tuesday 10:15 AM EDT With: ROLANDO DEVLIN, Rishi Ghosh Where: [facility] Nancy Sunshine [facility] Patient Educationon 05-10-20 Patient Education Urology Hematuria, [...] these instructions at home: Medicines ? Take dpyg-idq-qxblisq and prescription medicines only as told by [...] the blood stops without treatment. ? Take vlbj-aeo-qkhgxfw and prescription medicines only as told by your health care provider. ? Drink enough fluid to keep your urine pale yellow. This information is not intended to replace advice given to you by your health care provider. Make sure you discuss any questions you have with your health care provider. Document Revised: 01/14/2021 Document Reviewed: 01/14/2021 [employer] Patient Education ? 2022 [employer]. [facility] Urology Office/Clinic Noteon 05-10-2023 Urology Office/Clinic Note [...] Bactrim x 3 days empirically. went to [place] ER next day bc blood persisted. CT [...] When Contact Information ROLANDO DEVLIN, Rishi Ghosh, URL In 4 months [facility] [address], [place] [address]- Additional Instructions: w/PVR Patient Education Hematuria, Adult I, Johana De Jesus , personally scribed for Dr. Marshall on 05/10/2023 11:52:58. . Portions of this record may have been created with voice recognition artificial intelligence software, specifically Soundl.ly, MonoLibre and or Hexaformer. Substitutions may have occurred due to the [...] History Stent removal (05/10/2023), Cystoscopy (09/29/2021), EGD (esophagogastroduode noscopy) gastric outlet reduction, Endometrial ablation, Ovarian cystectomy. Medications Adipex-P, Oral, Daily Albuterol (Eqv-ProAir HFA) 90 mcg/inh inhalation aerosol, Inhalation, q6hr aripiprazole 5 mg Tab, Oral, Daily busPIRon (more content not included)... Normal [facility] Comment on above: Result Comment: Elec tronically Signed By: Rihsi MARSHALL MD\.br\Date and Time Signed: 05/10/23 11:55 EST\.br\Electronically Co-Signed By: Johana De Jesus\.br\Date and Time Co-Signed: 05/10/23 11:53 EST RAD - MISCon 04-26-2023 RAD - MISC [id number]# 1.00TIFF Normal [facility] Lab Reportson 04-15-2023 Lab Reports [id number]# 1.00TIFF Normal [facility] Operative Reporton Operative Report [id number] #1.00TIFF Normal [facility] Lab Reportson 04-08-2023 Lab Reports [id number] #1.00TIFF [facility] Insurance Correspondenceon 1 05-30-2022 Insurance Correspondence [id number] 4#1.00TIFF [facility] Consent for Procedure/Surger yon 03-24-2023 Consent for Procedure/Surgery [id number]#1.00TIFF [facility] CT ABDOMEN PELVIS W IV CONTR Derrick [...] bladder appear unremarkable. No evidence of lymphadenopathy. Peritoneum/Retroperi toneum: No evidence of retroperitoneal lymphadenopathy. No acute [...] Jennie Hernández MD 03/11/23 Final result Normal [facility] Cult,Urineon 03-11-2023 Cult,Urine Specimen Description .CLEAN CATCH URINE Culture NO SIGNIFICANT GROWTH Report Status FINAL 03/11/2023 Normal [facility] Comment on above: Performed By: #### U RC #### [address] [id number] [employer] Supervisor: Omar Segundo MD [address] [place] [id number] [employer] Supervisor: Cholo Alicea MD CBC with Diffon 03-10-2023 Abs. Basophil 0.05 k/uL Normal 0.00-0.20 [facility] Comment on above: Performed By: #### C ANTONIA LIU, CK #### [address] [place] [address] [employer] Supervisor: Cholo Alicea MD Abs.Imm.Granulocyte <0.03 Normal 0.00-0.30 [facility] Comment on above: Performed By: #### C ANTONIA LIU, CK #### [address] [place] [address] [employer] Supervisor: Cholo Alicea MD Abs.Neutrophil (Seg) 3.36 k/uL Normal 1.50-8.10 [facility] Comment on above: Performed By: #### C ANTONIA LIU, CK #### [address] [place] [id number] [employer] Supervisor: Cholo Alicea MD Basophils/100 WBC (Bld) 1 % Normal 0-2 M [facility] Comment on above: Performed By: #### C DP, CP, CK #### [address] [place], [place] [id number] [employer] Supervisor: Cholo Alicea MD Eosinophils (Bld) [#/Vol] 0.05 10*3/uL Normal 0.00-0.44 [facility] Comment on above: Performed By: #### C DP, CP, CK #### [address] [place], [place] [address] [employer] Supervisor: Cholo Alicea MD Eosinophils/100 WBC (Bld) 1 % Normal 1-4 [facility] Comment on above: Performed By: #### C DP, CP, CK #### [address] [place], [facility] [employer] Supervisor: Cholo Alicea MD Erythrocyte distribution width (RBC) [Ratio] 11.9 % Normal 11.8-14.4 [facility] Comment on above: Performed By: #### C DP, CP, CK #### [address] [place], [facility] [employer] Supervisor: Cholo Alicea MD Hematocrit (Bld) [Volume fraction] 37.5 % Normal 36.3-47.1 [facility] Comment on above: Performed By: #### C DP, CP, CK #### [address] [place], [facility]83 [employer] Supervisor: Cholo Alicea MD Hemoglobin (Bld) [Mass/Vol] 12.9 g/dL Normal 11.9-15.1 [facility] Comment on above: Performed By: #### C DP, CP, CK #### [address] [place], [facility]83 [employer] Supervisor: Cholo Alicea MD Immature granulocytes/100 WBC (Bld) 0 % Normal 0 [facility] Comment on above: Performed By: #### C ANTONIA LIU, CK #### [facility] [address] [place], [place] [id number] [employer] Supervisor: Cholo Alicea MD Lymphocytes (Bld) [#/Vol] 2.79 10*3/uL Normal 1.10-3.70 [facility] Comment on above: Performed By: #### C ANTONIA LIU, CK #### [facility] [address] [place], [place] [address] [employer] Supervisor: Cholo Alicea MD Lymphocytes/100 WBC (Bld) 42 % Normal 24-43 [facility] Comment on above: Performed By: #### C ANTONIA LIU, CK #### [address] [place], [place] [address] [employer] Supervisor: Cholo Alicea MD MCH (RBC) [Entitic mass] 30.4 pg Normal 25.2-33.5 [facility] Comment on above: Performed By: #### C ANTONIA LIU, CK #### [address] [place], [place] [address] [employer] Supervisor: Cholo Alicea MD MCHC (RBC) [Mass/Vol] 34.4 g/dL Normal 28.4-34.8 [facility] Comment on above: Performed By: #### C ANTONIA LIU, CK #### [address] [place], [facility]83 [employer] Supervisor: Cholo Alicea MD MCV (RBC) [Entitic vol] 88.2 fL Normal 82.6-102.9 M [facility] Comment on above: Performed By: #### C ANTONIA LIU, CK #### [facility] [address] [place], [place] [id number] (279 [employer] Supervisor: Cohlo Alicea MD Monocytes (Bld) [#/Vol] 0.46 10*3/uL Normal 0.10-1.20 [facility] Comment on above: Performed By: #### C ANTONIA LIU, CK #### [facility] [address] [place] [address] [employer] Supervisor: Cholo Alicea MD Monocytes/100 WBC (Bld) 7 % Normal 3-12 M [facility] Comment on above: Performed By: #### C ALEXA CP, CK #### [facility] [address] [place] [address] [employer] Supervisor: Cholo Alicea MD Neutrophil (Seg) 49 % Normal 36-65 [facility] Comment on above: Performed By: #### C ANTONIA LIU, CK #### [facility] [address] [place] [address] [place] [address] [employer] Supervisor: Cholo Alicea MD NRBC Automated 0.0 per 100 WBC Normal 0.0 [facility] Comment on above: Performed By: #### C ANTONIA LIU, CK #### [address] [place] [address] [employer] Supervisor: Cholo Alicea MD Platelet mean volume (Bld) [Entitic vol] 10.5 fL Normal 8.1-13.5 [facility] Comment on above: Performed By: #### C ANTONIA LIU, CK #### [facility] [address] [place] [address] [place] [address] [employer] Supervisor: Cholo Alicea MD Platelets (Bld) [#/Vol] 320 10*3/uL Normal 138-453 [facility] Comment on above: Performed By: #### C ANTONIA LIU, CK #### [facility] [address] [place], [place] [id number] [employer] Supervisor: Cholo Alicea MD RBC (Bld) [#/Vol] 4.25 10*6/uL Normal 3.95-5.11 [facility] Comment on above: Performed By: #### C DP, CP, CK #### [facility] [address] [place], [place] [address]3 [employer] Supervisor: Cholo Alicea MD WBC (Bld) [#/Vol] 6.7 10*3/uL Normal 3.5-11.3 [facility] Comment on above: Performed By: #### C DP, CP, CK #### [facility] [address] [place], [place] [address]683 [employer] Supervisor: Cholo Alicea MD Comp Metabolic Profon 2022 Albumin [Mass/Vol] 4.6 g/dL Normal 3.5-5.2 [facility] Comment on above: Performed By: #### C DP, CP, CK #### [facility] [address] [place], [place] [id number] [employer] Supervisor: Cholo Alicea MD Albumin/Glob Ratio 1.5 Normal 1.0-2.5 [facility] Comment on above: Performed By: #### C DP, CP, CK #### [facility] [address] [place], [place] [address]277383 [employer] Supervisor: Cholo Alicea MD Alkaline Phos 72 U/L Normal 35-104 [facility] Comment on above: Performed By: #### C DP, CP, CK #### [facility] [address] [place], [place] 2467183 [employer] Supervisor: Cholo Alicea MD ALT [Catalytic activity/Vol] 42 U/L High 5-33 [facility] Comment on above: Performed By: #### C DP, CP, CK #### [facility] [address] [place], [place] 6608683 [employer] Supervisor: Cholo Alicea MD Anion gap [Moles/Vol] 11 mmol/L Normal 9-17 [facility] Comment on above: Performed By: #### C DP, CP, CK #### [facility] [address] [place], [place] [address]83 [employer] Supervisor: Cholo Alicea MD AST [Catalytic activity/Vol] 31 U/L Normal <32 [facility] Comment on above: Performed By: #### C DP, CP, CK #### [facility] [address] [place], [place] [address]83 [employer] Supervisor: Cholo Alicea MD Bilirubin [Mass/Vol] 0.4 mg/dL Normal 0.3-1.2 [facility] Comment on above: Performed By: #### C DP, CP, CK #### [facility] [address] [place], [place] 8057683 [employer] Supervisor: Cholo Alicea MD BUN/CRE Ratio 10 Normal 9-20 [facility] Comment on above: Performed By: #### C DP, CP, CK #### [facility] [address] [place], [place] [address]25383 [employer] Supervisor: Cholo Alicea MD Calcium [Mass/Vol] 10.4 mg/dL Normal 8.6-10.4 [facility] Comment on above: Performed By: #### C DP, CP, CK #### [facility] [address] [place], [place] [address]683 [employer] Supervisor: Cholo Alicea MD Chloride [Moles/Vol] 101 mmol/L Normal 98-107 [facility] Comment on above: Performed By: #### C DP, CP, CK #### [facility] [address] [place], [place] [address]83 [employer] Supervisor: Cholo Alicea MD CO2 [Moles/Vol] 26 mmol/L Normal 20-31 [facility] Comment on above: Performed By: #### C DP, CP, CK #### [facility] [address] [place], [place] [address] [employer] Supervisor: Cholo Alicea MD Creatinine [Mass/Vol] 0.9 mg/dL Normal 0.5-0.9 [facility] Comment on above: Performed By: #### C DP CP, CK #### [facility] [address] [place] [address] [employer] Supervisor: Cholo Alicea MD GFR/1.73 sq M.predicted among non-blacks MDRD (S/P/Bld) [Vol rate/Area] mL/min/{1.73_m2} Normal >60 [facility] Comment on above: Result Comment: These [...] renal tubular secretion. Performed By: #### C DP CP, CK #### [facility] [address] [place], [facility]83 [employer] Supervisor: Cholo Alicea MD Glucose [Mass/Vol] 97 mg/dL Normal 70-99 [facility] Comment on above: Performed By: #### C ALEXA CP, CK #### [address] [place] [address] [employer] Supervisor: Cholo Alicea MD Potassium [Moles/Vol] 4.2 mmol/L Normal 3.7-5.3 [facility] Comment on above: Performed By: #### C DP CP, CK #### [facility] [address] [place], [place] [address]237[address] [employer] Supervisor: Cholo Alicea MD Protein [Mass/Vol] 7.6 g/dL Normal 6.4-8.3 [facility] Comment on above: Performed By: #### C DP CP, CK #### [facility] [address] [place] [address] [employer] Supervisor: Cholo Alicea MD Sodium [Moles/Vol] 138 mmol/L Normal 135-144 [facility] Comment on above: Performed By: #### C DP, CP, CK #### [facility] [address] [place] [address] [employer] Supervisor: Cholo Alicea MD Urea nitrogen [Mass/Vol] 9 mg/dL Normal 6-20 [facility] Comment on above: Performed By: #### C DP, CP, CK #### [facility] [address] [place] [address] [employer] Supervisor: Cholo Alicea MD Creatine Kinaseon 7 CK [Catalytic activity/Vol] 51 U/L Normal 26-192 [facility] Comment on above: Performed By: #### C DP, CP, CK #### [facility] [address] [place] [address] [employer] Supervisor: Cholo Alicea MD HCG, ,Urineon 03-10 Beta HCG ( test) Ql (U) Negative Normal NEG [facility] Comment on above: Result Comment: Spec imens with hCG levels near the threshold of the test (25 mIU/mL) may give a negative or indeterminate result. In such cases, another test should be performed with a new specimen in 48-72 hours. If early is suspected clinically in this setting, correlation with quantitative serum b-hCG level is suggested. [facility] has confirmed the use of plasma for this test. This has not been cleared or approved by the U.S. Food and Drug Administration. The FDA has determined that such clearance is not necessary. Performed By: #### U HCG, UAMIC #### [facility] [address] [place] [address] [employer] Supervisor: Cholo Alicea MD Urinalysis w/ Microon Bacteria TRACE Abnormal NONE [facility] Comment on above: Performed By: #### L IP, CDP, CP #### [facility] [address] [place] [address]457[address] [employer] Supervisor: Cholo Alicea MD Bilirubin, SemiQt,Ur Negative Normal NEG [facility] Comment on above: Performed By: #### L IP, CDP, CP #### [facility] [address] [place], [place] [address]283 [employer] Supervisor: Cholo Alicea MD Blood, Urine Negative Normal NEG [facility] Comment on above: Performed By: #### L IP, CDP, CP #### [facility] [address] [place] [address] [place], [place] [address] [employer] Supervisor: Cholo Alicea MD Clarity (U) Clear Normal CLEAR [facility] Comment on above: Performed By: #### L IP, CDP, CP #### [facility] [address] [place] [address] [place], [place] [address]77383 [employer] Supervisor: Cholo Alicea MD Color (U) Yellow Normal YEL [facility] Comment on above: Performed By: #### L IP, CDP, CP #### [facility] [address] [place] [address] [place], [place] [address]83 [employer] Supervisor: Cholo Alicea MD Epithelial cells LM Ql (Urine sed) 0 TO 2 Normal 0-25 [facility] Comment on above: Performed By: #### L IP, CDP, CP #### [facility] [address] [place] [address] [place], [place] [address]83 [employer] Supervisor: Cholo Alicea MD Glucose Ql (U) Negative Normal NEG [facility] Comment on above: Performed By: #### L IP, CDP, CP #### [facility] [address] [place], [place] [address] [employer] Supervisor: Cholo Alicea MD Ketones Ql (U) Negative Normal NEG [facility] Comment on above: Performed By: #### L IP, CDP, CP #### [facility] [address] [place], [place] [address]48783 [employer] Supervisor: Cholo Alicea MD Leukocyte esterase Test strip Ql (U) Negative Normal NEG [facility] Comment on above: Performed By: #### L IP, CDP, CP #### [facility] [address] [place], [place] [address] [employer] Supervisor: Cholo Alicea MD Nitrite,Ur Negative Normal NEG [facility] Comment on above: Performed By: #### L IP, CDP, CP #### [facility] [address] [place], [place] [address]83 [employer] Supervisor: Cholo Alicea MD PH,Ur 7.5 Normal 5.0-9.0 [facility] Comment on above: Performed By: #### L IP, CDP, CP #### [address] [place], [place] [address]83 [employer] Supervisor: Cholo Alicea MD Protein Ql (U) Negative Normal NEG [facility] Comment on above: Performed By: #### L IP, CDP, CP #### [address] [place], [place] [address]83 [employer] Supervisor: Cholo Alicea MD Spec. [place],Ur 1.010 Normal 1.010-1.020 [facility] Comment on above: Performed By: #### L IP, CDP, CP #### [address] [place] [address] [employer] Supervisor: Cholo Alicea MD Urine RBC's None Normal 0-2 [facility] Comment on above: Performed By: #### L IP, CDP, CP #### [facility] [address] [place], [place] [address] [employer] Supervisor: Cholo Alicea MD Urine WBC's 0 TO 2 Normal 0-5 [facility] Comment on above: Performed By: #### L IP, CDP, CP #### [address] [place], [place] [address]83 [employer] Supervisor: Cholo Alicea MD Urobilinogen,Ur Normal Normal 0.0-1.0 [facility] Comment on above: Performed By: #### L IP, TATA, CP #### [facility] [address] [place] [address] [employer] Supervisor: Cholo Alicea MD COVID + FLU Quick Testingon 02-11-2023 SARS-CoV-2 (COVID-19) RNA ALEKSANDER+probe Ql (Unsp spec) Negative Action Other COVID + FLU Quick Testing Negative Action Other Quick Strepon 02-11-2023 S. pyogenes Org specific cx Ql (Throat) Negative [facility] [employer] Other Quick Strep Action Other CNPNon 02-03-2023 CNPN Telephone (GASTSP) LULÚ GAITAN ([id number]) 1995 F Date Time Provider Department 02/03/23 CHRISTINE MACIAS GASTSP During your visit today, we recorded the [...] list full name of hospital or facility)? [facility] If the patient had a gastric emptying [...] G/J Tube?No Preferred phone number for contact: [phone] ? Viviana David 02/03/2023 3:38 PM Signed Left VM for [...] Macias regarding normal GES results. Viviana David 02/11/2023 2:18 PM Signed Left VM in regards to normal GES Allergies As of Date: 02/03/2023 (Not on File) Date Reviewed: Never Reviewed Reason for Visit: Appointment [186] Problem List As Of Date: 02/03/2023 (None) Letter Text Encounter Status:Closed by VIVIANA DAVID on 02/04/23 Normal [facility] ECG 12 lead ECGon 02-03-2023 ECG 12 lead ECG [facility] [place] [address] Electrocardiograph Report Signed Patient: Lulú Gaitan MR#: [id number] 4 : 1995 Acct:[id number] Age/Sex: 27 / F ADM Date: 02/02/23 Loc: Room: [address] [place] [address] Type: ADM IN Attending Dr: Karri Kamara [...] Charles Mauro MD 0 02/04/23 1319 Normal [facility] Alanine aminotransferase [En zymatic activity/volume] in Serum or PlasmaOrdered By: Matthew Leslie on 02-02-2023 ALT [Catalytic activity/Vol] 38 U/L 7-52 [facility] Albumin [Mass/volume] in Ser um or Plasma by Bromocresol green (BCG) dye binding methoOrdered By: Matthew Leslie on 02-02-2023 Albumin BCG dye [Mass/Vol] 4.6 g/dL 3.5-5.7 [facility] Alkaline phosphatase [Enzyma tic activity/volume] in Serum or PlasmaOrdered By: Matthew Leslie on 02-02-2023 ALP [Catalytic activity/Vol] 54 U/L 34-104 [facility] Amphetamine Screen Ql (U)Ord ered By: Matthew Leslie on 02-02-2023 Amphetamines Ql (U) Negative Negative [facility] Aspartate aminotransferase [ Enzymatic activity/volume] in Serum or PlasmaOrdered By: Matthew Leslie on 02-02-2023 AST [Catalytic activity/Vol] 32 U/L 13-39 [facility] Automated erythrocytes count in urine sediment (number/area)Ordered By: Matthew Leslie on 02-02-2023 RBC Auto (Urine sed) [#/Area] 10-19 [HPF] 0-4 [facility] Automated leukocytes count i n urine sediment (number/area)Ordered By: Matthew Leslie on 02-02-2023 WBC Auto (Urine sed) [#/Area] 10-19 [HPF] 0-4 [facility] Automated urine hyaline cast s count (number/volume)Ordered By: Matthew Leslie on 02-02-2023 Hyaline casts Auto (U) [#/Vol] 0-1 [LPF] 0-1 [facility] Barbiturates [Presence] in U rine by Screen methodOrdered By: Matthew Leslie on 02-02-2023 Barbiturates Screen Ql (U) Negative Negative [facility] Basophils Auto (Bld) [#/Vol] Ordered By: Matthew Leslie on 02-02-2023 Basophils (Bld) [#/Vol] 0.1 10*3/uL 0.0-0.2 [facility] Basophils/100 WBC Auto (Bld) Ordered By: Matthew Leslie on 02-02-2023 Basophils/100 WBC (Bld) 0.9 % . F [facility] Benzodiazepines Screen Ql (U )Ordered By: Matthew Leslie on 02-02-2023 Benzodiazepines Ql (U) Negative Negative [facility] Benzoylecgonine [Presence] i n Urine by Screen methodOrdered By: Matthew Leslie on 02-02-2023 Benzoylecgonine Screen Ql (U) Negative Negative [facility] Bilirubin Test strip Ql (U)O rdered By: Matthew Leslie on 02-02-2023 Bilirubin Ql (U) Negative Negative [facility] Bilirubin.direct [Mass/volum e] in Serum or PlasmaOrdered By: Matthew Leslie on 02-02-2023 Bilirubin.direct [Mass/Vol] 0.10 mg/dL 0.03-0.18 [facility] Bilirubin.total [Mass/volume ] in Serum or PlasmaOrdered By: Matthew Leslie on 02-02-2023 Bilirubin [Mass/Vol] 0.6 mg/dL 0.3-1.0 [facility] Calcium [Mass/volume] in Ser um or PlasmaOrdered By: Matthew Leslie on 02-02-2023 Calcium [Mass/Vol] 9.5 mg/dL 8.6-10.3 [facility] Cannabinoids [Presence] in U rine by Screen methodOrdered By: Matthew Leslie on 02-02-2023 Cannabinoids Screen Ql (U) Negative Negative [facility] Comment on above: These are unconfirme d results and should not be used for legal purposes. Drug Cut-Off Concentration: AMPH 1000 ng/mL PONCHO 200 ng/mL KRISTAN 200 ng/mL COCM 300 ng/mL OP 300 ng/mL PCP 25 ng/mL THC 20 ng/mL Carbon dioxide, total [Moles /volume] in Serum or PlasmaOrdered By: Matthew Leslie on 02-02-2023 CO2 [Moles/Vol] 28.3 mmol/L 21.0-31.0 [facility] Casts typing in urine sedime nt by light microscopyOrdered By: Matthew Leslie on 02-02-2023 Casts LM Nom (Urine sed) None seen [LPF] None Seen [facility] Chloride [Moles/volume] in S barbra or PlasmaOrdered By: Matthew Leslie on 02-02-2023 Chloride [Moles/Vol] 107 mmol/L 98-107 [facility] Color Auto (U)Ordered By: Mariela Leslie on 02-02-2023 Color (U) Yellow Yellow [facility] Complete Blood Count Auto Di ffon 02-02-2023 Basophils (Bld) [#/Vol] 0.1 10*3/uL Normal 0.0-0.2 [facility] Comment on above: Result Comment: PERF ORMED BY: [place] [address] PATHOLOGIST BRAIDER SETTER MOISES VELASCO M.D. Performed By: #### E TANYA, HEPATIC, TSH3 wRFLX, CBC, CMP, [id number] #### [facility] [address] [place] [address] Basophils/100 WBC (Bld) 0.9 % Normal . F [facility] Comment on above: Performed By: #### E TANYA, HEPATIC, TSH3 wRFLX, CBC, CMP, [id number] #### [facility] [address] Eosinophils (Bld) [#/Vol] 0.0 10*3/uL Normal 0.0-0.45 [facility] Comment on above: Performed By: #### E TANYA, HEPATIC, TSH3 wRFLX, CBC, CMP, [id number] #### [address] Eosinophils/100 WBC (Bld) 0.4 % Normal . [facility] Comment on above: Performed By: #### E TANYA, HEPATIC, TSH3 wRFLX, CBC, CMP, [id number] #### [address] Erythrocyte distribution width (RBC) [Ratio] 12.9 % Normal 11.9-15.3 [facility] Comment on above: Performed By: #### E TANYA, HEPATIC, TSH3 wRFLX, CBC, CMP, [id number] #### [address] Hematocrit (Bld) [Volume fraction] 41.1 % Normal 34.0-46.4 [facility] Comment on above: Performed By: #### E TANYA, HEPATIC, TSH3 wRFLX, CBC, CMP, [id number] #### [address] Hemoglobin (Bld) [Mass/Vol] 13.8 g/dL Normal 11.8-15.4 [facility] Comment on above: Performed By: #### E TANYA, HEPATIC, TSH3 wRFLX, CBC, CMP, [id number] #### [address] Lymphocytes (Bld) [#/Vol] 2.7 10*3/uL Normal 1.00-4.8 [facility] Comment on above: Performed By: #### E TANYA, HEPATIC, TSH3 wRFLX, CBC, CMP, [id number] #### [address] Lymphocytes/100 WBC (Bld) 36.0 % Normal . [facility] Comment on above: Performed By: #### E TANYA, HEPATIC, TSH3 wRFLX, CBC, CMP, [id number] #### [address] MCH (RBC) [Entitic mass] 29.4 pg Normal 24.7-34.3 [facility] Comment on above: Performed By: #### E TANYA, HEPATIC, TSH3 wRFLX, CBC, CMP, [id number] #### [address] MCV (RBC) [Entitic vol] 87.6 fL Normal 80-100 F [facility] Comment on above: Performed By: #### E TANYA, HEPATIC, TSH3 wRFLX, CBC, CMP, [id number] #### [address] Mean Corpuscular HGB Conc 33.6 g/dL Normal 32.0-35.0 [facility] Comment on above: Performed By: #### E TANYA, HEPATIC, TSH3 wRFLX, CBC, CMP, [id number] #### [address] Monocytes (Bld) [#/Vol] 0.6 10*3/uL Normal 0.0-0.8 [facility] Comment on above: Performed By: #### E TANYA, HEPATIC, TSH3 wRFLX, CBC, CMP, [id number] #### [address] Monocytes/100 WBC (Bld) 17.83 % Normal 0.00-20.00 [facility] Comment on above: Performed By: #### E TANYA, HEPATIC, TSH3 wRFLX, CBC, CMP, [id number] #### [address] Monocytes/100 WBC (Bld) 7.9 % Normal . F [facility] Comment on above: Performed By: #### E TANYA, HEPATIC, TSH3 wRFLX, CBC, CMP, [id number] #### [address] Neutrophils (Bld) [#/Vol] 4.2 10*3/uL Normal 1.8-7.7 [facility] Comment on above: Performed By: #### E TANYA, HEPATIC, TSH3 wRFLX, CBC, CMP, [id number] #### [facility] [address] [place] [address] Neutrophils/100 WBC (Bld) 54.8 % Normal . [facility] Comment on above: Performed By: #### E TANYA, HEPATIC, TSH3 wRFLX, CBC, CMP, [id number] #### [facility] [address] NRBC% 0.0 /100{WBC} Normal 0-0.5 [facility] Comment on above: Performed By: #### E TANYA, HEPATIC, TSH3 wRFLX, CBC, CMP, [id number] #### [address] Platelet mean volume (Bld) [Entitic vol] 9.2 fL Normal 6.3-10.7 [facility] Comment on above: Performed By: #### E TANYA, HEPATIC, TSH3 wRFLX, CBC, CMP, [id number] #### [address] Platelets (Bld) [#/Vol] 322 10*3/uL Normal 150-450 [facility] Comment on above: Performed By: #### E TANYA, HEPATIC, TSH3 wRFLX, CBC, CMP, [id number] #### [address] RBC (Bld) [#/Vol] 4.70 10*6/uL Normal 3.60-5.00 [facility] Comment on above: Performed By: #### E TANYA, HEPATIC, TSH3 wRFLX, CBC, CMP, [id number] #### [address] WBC (Bld) [#/Vol] 7.6 10*3/uL Normal 3.8-11.6 [facility] Comment on above: Performed By: #### E TANYA, HEPATIC, TSH3 wRFLX, CBC, CMP, [id number] #### [facility] [address] Comprehensive Metabolic Pane akbar 02-02-2023 Albumin [Mass/Vol] 4.6 g/dL Normal 3.5-5.7 [facility] Comment on above: Performed By: #### U HCG, ADDONUAPLUS, URDS, CUU #### [facility] [address] [place] [address] Albumin/Globulin [Mass ratio] 1.4 {ratio} Normal [facility] Comment on above: Performed By: #### U HCG, ADDONUAPLUS, URDS, CUU #### [facility] [address] [place] [address] ALP [Catalytic activity/Vol] 54 U/L Normal 34-104 [facility] Comment on above: Performed By: #### U HCG, ADDONUAPLUS, URDS, CUU #### [address] ALT [Catalytic activity/Vol] 38 U/L Normal 7-52 [facility] Comment on above: Performed By: #### U HCG, ADDONUAPLUS, URDS, CUU #### [facility] [address] [place] [address] Anion gap [Moles/Vol] 9.5 mmol/L Normal 6.0-15.0 [facility] Comment on above: Performed By: #### U HCG, ADDONUAPLUS, URDS, CUU #### [facility] [address] [place] [address] AST [Catalytic activity/Vol] 32 U/L Normal 13-39 [facility] Comment on above: Performed By: #### U HCG, ADDONUAPLUS, URDS, CUU #### [facility] [address] [place] [address] Bilirubin [Mass/Vol] 0.6 mg/dL Normal 0.3-1.0 [facility] Comment on above: Performed By: #### U HCG, ADDONUAPLUS, URDS, CUU #### [place] [address] [place] Calcium [Mass/Vol] 9.5 mg/dL Normal 8.6-10.3 [facility] Comment on above: Performed By: #### U HCG, ADDONUAPLUS, URDS, CUU #### [facility] [address] Chloride [Moles/Vol] 107 mmol/L Normal 98-107 [facility] Comment on above: Performed By: #### U HCG, ADDONUAPLUS, URDS, CUU #### [facility] [address] CO2 [Moles/Vol] 28.3 mmol/L Normal 21.0-31.0 [facility] Comment on above: Performed By: #### U HCG, ADDONUAPLUS, URDS, CUU #### [address] Creatinine [Mass/Vol] 1.14 mg/dL Normal 0.60-1.20 [facility] Comment on above: Performed By: #### U HCG, ADDONUAPLUS, URDS, CUU #### [facility] [address] [place] [address] Creatinine Clr Calc Pharmacy 76.05 Normal [facility] Comment on above: Result Comment: PERF ORMED BY: [place] [address] PATHOLOGIST BRAIDER SETTER MOISES VELASCO M.D. Performed By: #### U HCG, ADDONUAPLUS, URDS, CUU #### [facility] [address] [place] [address] [place] GFR/1.73 sq M.predicted MDRD (S/P/Bld) [Vol rate/Area] mL/min/{1.73_m2} [facility] Comment on above: Performed By: #### U HCG, ADDONUAPLUS, URDS, CUU #### [facility] [address] Globulin (S) [Mass/Vol] 3.2 g/dL Normal [facility] Comment on above: Performed By: #### U HCG, ADDONUAPLUS, URDS, CUU #### [facility] [address] [place] [address] [place] Glucose [Mass/Vol] 98 mg/dL Normal 70-100 [facility] Comment on above: Result Comment: [place] Glucose Reference Range is dependent on time and content of last meal. Glucose of more than 200 mg/dL in a nonstressed, ambulatory subject supports the diagnosis of Diabetes Mellitus. ADA recommended reference range Performed By: #### U HCG, ADDONUAPLUS, URDS, CUU #### [facility] [address] Potassium [Moles/Vol] 3.8 mmol/L Normal 3.5-5.1 [facility] Comment on above: Performed By: #### U HCG, ADDONUAPLUS, URDS, CUU #### [facility] [address] [place] [address] [place] Protein [Mass/Vol] 7.8 g/dL Normal 6.4-8.9 [facility] Comment on above: Performed By: #### U HCG, ADDONUAPLUS, URDS, CUU #### [facility] [address] [place] [address] [place] Sodium [Moles/Vol] 141 mmol/L Normal 136-145 [facility] Comment on above: Performed By: #### U HCG, ADDONUAPLUS, URDS, CUU #### [facility] [address] [place] [address] [place] Urea nitrogen [Mass/Vol] 11 mg/dL Normal 7-25 [facility] Comment on above: Performed By: #### U HCG, ADDONUAPLUS, URDS, CUU #### [facility] [address] [place] [address] [place] Creatinine [Mass/volume] in Serum or PlasmaOrdered By: Matthew Leslie on 02-02-2023 Creatinine [Mass/Vol] 1.14 mg/dL 0.60-1.20 [facility] Dipstick and Microscopicon 0 02-02-2023 Appearance (U) Cloudy Critically abnormal Clear [facility] Comment on above: Order Comment: Name Collection Type:: Clean-Voided Midstream Performed By: #### U HCG, ADDONUAPLUS, URDS, CUU #### [facility] [address] [place] [address] Bacteria,Urine 1+ High None Seen [facility] Comment on above: Order Comment: Name Collection Type:: Clean-Voided Midstream Performed By: #### U HCG, ADDONUAPLUS, URDS, CUU #### [facility] [address] [place] [address] [place] Bilirubin,Urine Negative Normal Negative [facility] Comment on above: Order Comment: Name Collection Type:: Clean-Voided Midstream Performed By: #### U HCG, ADDONUAPLUS, URDS, CUU #### [facility] [address] [place] [address] Color (U) Yellow Normal Yellow [facility] Comment on above: Order Comment: Name Collection Type:: Clean-Voided Midstream Performed By: #### U HCG, ADDONUAPLUS, URDS, CUU #### [facility] [address] [place] [address] Glucose Ql (U) Normal Normal Normal [facility] Comment on above: Order Comment: Name Collection Type:: Clean-Voided Midstream Performed By: #### U HCG, ADDONUAPLUS, URDS, CUU #### [facility] [address] [place] [address] [place] Hyaline Casts,Urine 0-1 Normal 0-1 [facility] Comment on above: Order Comment: Name Collection Type:: Clean-Voided Midstream Performed By: #### U HCG, ADDONUAPLUS, URDS, CUU #### [facility] [address] [place] [address] [place] Ketones Ql (U) 2+ High Negative [facility] Comment on above: Order Comment: Name Collection Type:: Clean-Voided Midstream Performed By: #### U HCG, ADDONUAPLUS, URDS, CUU #### [facility] [address] [place] [address] [place] Leukocyte esterase Test strip Ql (U) 2+ High Negative [facility] Comment on above: Order Comment: Name Collection Type:: Clean-Voided Midstream Performed By: #### U HCG, ADDONUAPLUS, URDS, CUU #### [place] [address] [place] Nitrite,Urine Negative Normal Negative [facility] Comment on above: Order Comment: Name Collection Type:: Clean-Voided Midstream Performed By: #### U HCG, ADDONUAPLUS, URDS, CUU #### [address] Occult Blood,Urine 3+ High Negative [facility] Comment on above: Order Comment: Name Collection Type:: Clean-Voided Midstream Performed By: #### U HCG, ADDONUAPLUS, URDS, CUU #### [address] Other Casts,Urine None Seen Normal None Seen [facility] Comment on above: Order Comment: Name Collection Type:: Clean-Voided Midstream Performed By: #### U HCG, ADDONUAPLUS, URDS, CUU #### [address] pH (U) 6.0 [pH] Normal 5.0-9.0 [facility] Comment on above: Order Comment: Name Collection Type:: Clean-Voided Midstream Performed By: #### U HCG, ADDONUAPLUS, URDS, CUU #### [facility] [address] [place] [address] Protein (U) [Mass/Vol] 30 mg/dL High Negative [facility] Comment on above: Order Comment: Name Collection Type:: Clean-Voided Midstream Performed By: #### U HCG, ADDONUAPLUS, URDS, CUU #### [place] [address] [place] RBC,Urine 10-19 High 0-4 [facility] Comment on above: Order Comment: Name Collection Type:: Clean-Voided Midstream Performed By: #### U HCG, ADDONUAPLUS, URDS, CUU #### [facility] [address] [place] [address] Specificy [place],Urine 1.027 Normal 1.001-1.030 [facility] Comment on above: Order Comment: Name Collection Type:: Clean-Voided Midstream Performed By: #### U HCG, ADDONUAPLUS, URDS, CUU #### [facility] [address] [place] [address] Squamous Epithelial Cell,Urine 3-4 High 0-2 [facility] Comment on above: Order Comment: Name Collection Type:: Clean-Voided Midstream Performed By: #### U HCG, ADDONUAPLUS, URDS, CUU #### [address] Urobilinogen,Urine Normal Normal Normal [facility] Comment on above: Order Comment: Name Collection Type:: Clean-Voided Midstream Performed By: #### U HCG, ADDONUAPLUS, URDS, CUU #### [facility] [address] [place] [address] WBC,Urine 10-19 High 0-4 [facility] Comment on above: Order Comment: Name Collection Type:: Clean-Voided Midstream Performed By: #### U HCG, ADDONUAPLUS, URDS, CUU #### [address] Yeast,Urine None Seen Normal None Seen [facility] Comment on above: Order Comment: Name Collection Type:: Clean-Voided Midstream Performed By: #### U HCG, ADDONUAPLUS, URDS, CUU #### [address] Drug Screen,Urineon 02-03-20 23 Amphetamine Screen,Urine Negative Normal Negative [facility] Comment on above: Performed By: #### U HCG, ADDONUAPLUS, URDS, CUU #### [address] Barbiturate Screen,Urine Negative Normal Negative [facility] Comment on above: Performed By: #### U HCG, ADDONUAPLUS, URDS, CUU #### [facility] [address] [place] [address] Benzodiazepines Screen,Urine Negative Normal Negative [facility] Comment on above: Performed By: #### U HCG, ADDONUAPLUS, URDS, CUU #### [address] Cannabinoid Screen,Urine Negative Normal Negative [facility] Comment on above: Result Comment: Thes e are unconfirmed results and should not be used for legal purposes. Drug Cut-Off Concentration: AMPH 1000 ng/mL PONCHO 200 ng/mL KRISTAN 200 ng/mL COCM 300 ng/mL OP 300 ng/mL PCP 25 ng/mL THC 20 ng/mL PERFORMED BY: [place] [address] PATHOLOGIST BRAIDER SETTER MOISES VELASCO M.D. Performed By: #### U HCG, ADDONUAPLUS, URDS, CUU #### [address] Cocaine Screen,Urine Negative Normal Negative [facility] Comment on above: Performed By: #### U HCG, ADDONUAPLUS, URDS, CUU #### [address] Opiate Screen,Urine Negative Normal Negative [facility] Comment on above: Performed By: #### U HCG, ADDONUAPLUS, URDS, CUU #### [address] Phencyclidine Screen,Urine Negative Normal Negative [facility] Comment on above: Performed By: #### U HCG, ADDONUAPLUS, URDS, CUU #### [facility] [address] [place] [address] Eosinophils Auto (Bld) [#/Vo l]Ordered By: Matthew Leslie on 02-02-2023 Eosinophils (Bld) [#/Vol] 0.0 10*3/uL 0.0-0.45 [facility] Eosinophils/100 WBC Auto (Bl d)Ordered By: Matthew Leslie on 02-02-2023 Eosinophils/100 WBC (Bld) 0.4 % . [facility] Erythrocyte distribution wid th Auto (RBC) [Ratio]Ordered By: Matthew Leslie on 02-02-2023 Erythrocyte distribution width (RBC) [Ratio] 12.9 % 11.9-15.3 [facility] Ethanol [Mass/volume] in Ser um or PlasmaOrdered By: Matthew Leslie on 02-02-2023 Ethanol [Mass/Vol] mg/dL [facility] Ethanol [Mass/Vol] TNP [facility] Comment on above: Test not performed Ethyl Alcohol Profileon Ethanol [Mass/Vol] mg/dL Normal [facility] Comment on above: Performed By: #### E TANYA, HEPATIC, TSH3 wRFLX, CBC, CMP, [id number] #### [facility] [address] [place] [address] Percent Ethanol Not performed Normal [facility] Comment on above: Result Comment: PERF ORMED BY: [place] [address] PATHOLOGIST BRAIDER SETTER MOISES VELASCO M.D. Performed By: #### E TANYA, HEPATIC, TSH3 wRFLX, CBC, CMP, [id number] #### [facility] [address] [place] [address] Globulin Calc (S) [Mass/Vol] Ordered By: Matthew Leslie on 02-02-2023 Globulin (S) [Mass/Vol] 3.2 g/dL [facility] Glucose [Mass/volume] in Ser um or PlasmaOrdered By: Matthew Leslie on 02-02-2023 Glucose [Mass/Vol] 98 mg/dL 70-100 [facility] Comment on above: ADA recommended refe rence rangeRandom Glucose Reference Range is dependent on time and content of last meal. Glucose of more than 200 mg/dL in a nonstressed, ambulatory subject supports the diagnosis of Diabetes Mellitus. HCG ( test) IA.rapi d Ql (U)Ordered By: Matthew Leslie on 02-02-2023 HCG ( test) Ql (U) Negative [facility] HCG,Urineon 02-02-2023 Beta HCG ( test) Ql (U) Negative Normal [facility] Comment on above: Order Comment: Name Collection Type:: Clean-Voided Midstream Result Comment: PERF ORMED BY: [place] [address] PATHOLOGIST BRAIDER SETTER MOISES VELASCO M.D. Performed By: #### U HCG, ADDONUAPLUS, URDS, CUU #### [facility] [address] [place] [address] Hematocrit Auto (Bld) [Volum e fraction]Ordered By: Matthew Leslie on 02-02-2023 Hematocrit (Bld) [Volume fraction] 41.1 % 34.0-46.4 [facility] Hemoglobin [Mass/volume] in BloodOrdered By: Matthew Leslie on 02-02-2023 Hemoglobin (Bld) [Mass/Vol] 13.8 g/dL 11.8-15.4 [facility] Hepatic Panelon 02-02-2023 Bilirubin,Indirect 0.5 mg/dL Normal [facility] Comment on above: Performed By: #### U HCG, ADDONUAPLUS, URDS, CUU #### [facility] [address] [place] [address] Bilirubin.indirect [Mass/Vol] 0.10 mg/dL Normal 0.03-0.18 [facility] Comment on above: Performed By: #### U HCG, ADDONUAPLUS, URDS, CUU #### [facility] [address] [place] [address] Ketones Auto test strip (U) [Mass/Vol]Ordered By: Matthew Leslie on 02-02-2023 Ketones (U) [Mass/Vol] 2+ Negative [facility] Leukocytes [#/volume] correc alberto for nucleated erythrocytes in Blood by Automated counOrdered By: Matthew Leslie on 02-02-2023 WBC corrected for nucl RBC Auto (Bld) [#/Vol] 7.6 10*3/uL 3.8-11.6 [facility] Lymphocytes Auto (Bld) [#/Vo l]Ordered By: Matthew Leslie on 02-02-2023 Lymphocytes (Bld) [#/Vol] 2.7 10*3/uL 1.00-4.8 [facility] Lymphocytes/100 WBC Auto (Bl d)Ordered By: Matthew Leslie on 02-02-2023 Lymphocytes/100 WBC (Bld) 36.0 % . [facility] MCH Auto (RBC) [Entitic mass ]Ordered By: Matthew Leslie on 02-02-2023 MCH (RBC) [Entitic mass] 29.4 pg 24.7-34.3 [facility] MCHC Auto (RBC) [Mass/Vol]Or dered By: Matthew Leslie on 02-02-2023 MCHC (RBC) [Mass/Vol] 33.6 g/dL 32.0-35.0 [facility] MCV Auto (RBC) [Entitic vol] Ordered By: Matthew Leslie on 02-02-2023 MCV (RBC) [Entitic vol] 87.6 fL 80-100 [facility] Monocyte distribution width [Entitic volume] in Blood by AutomatedOrdered By: Matthew Leslie on 02-02-2023 Monocyte distribution width Auto (Bld) [Entitic vol] 17.83 % 0.00-20.00 [facility] Monocytes Auto (Bld) [#/Vol] Ordered By: Matthew Leslie on 02-02-2023 Monocytes (Bld) [#/Vol] 0.6 10*3/uL 0.0-0.8 [facility] Monocytes/100 WBC Auto (Bld) Ordered By: Matthew Leslie on 02-02-2023 Monocytes/100 WBC (Bld) 7.9 % . [facility] Neutrophils Auto (Bld) [#/Vo l]Ordered By: Matthew Leslie on 02-02-2023 Neutrophils (Bld) [#/Vol] 4.2 10*3/uL 1.8-7.7 [facility] Neutrophils/100 WBC Auto (Bl d)Ordered By: Matthew Leslie on 02-02-2023 Neutrophils/100 WBC (Bld) 54.8 % . [facility] Nitrite Test strip Ql (U)Ord ered By: Matthew Leslie on 02-02-2023 Nitrite Ql (U) Negative Negative [facility] No Panel InformationOrdered By: Matthew Leslie on 02-02-2023 Estimated GFR (CKD-EPI) > 60.0 mL/Min [facility] Creatinine Clearance (Chem 76.05 [facility] Nucleated erythrocytes [Pres ence] in Blood by Automated countOrdered By: Matthew Leslie on 02-02-2023 Nucleated RBC Auto Ql (Bld) 0.0 /100{WBC} 0-0.5 [facility] Opiates [Presence] in Urine by Screen methodOrdered By: Matthew Leslie on 02-02-2023 Opiates Screen Ql (U) Negative Negative [facility] Phencyclidine Screen Ql (U)O rdered By: Matthew Leslie on 02-02-2023 Phencyclidine Ql (U) Negative Negative [facility] Platelet mean volume Auto (B ld) [Entitic vol]Ordered By: Matthew Leslie on 02-02-2023 Platelet mean volume (Bld) [Entitic vol] 9.2 fL 6.3-10.7 [facility] Platelets Auto (Bld) [#/Vol] Ordered By: Matthew Leslie on 02-02-2023 Platelets (Bld) [#/Vol] 322 10*3/uL 150-450 [facility] Potassium [Moles/volume] in Serum or PlasmaOrdered By: Matthew Leslie on 02-02-2023 Potassium [Moles/Vol] 3.8 mmol/L 3.5-5.1 [facility] Protein Auto test strip (U) [Mass/Vol]Ordered By: Matthew Leslie on 02-02-2023 Protein (U) [Mass/Vol] 30 mg/dL Negative [facility] Protein [Mass/volume] in Ser um or PlasmaOrdered By: Matthew Leslie on 02-02-2023 Protein [Mass/Vol] 7.8 g/dL 6.4-8.9 [facility] RBC Auto (Bld) [#/Vol]Ordere d By: Matthew Leslie on 02-02-2023 RBC (Bld) [#/Vol] 4.70 10*6/uL 3.60-5.00 [facility] Serum or plasma albumin/glob ulin mass ratioOrdered By: Matthew Leslie on 02-02-2023 Albumin/Globulin [Mass ratio] 1.4 {ratio} [facility] Serum or plasma anion gap de terminationOrdered By: Matthew Leslie on 02-02-2023 Anion gap [Moles/Vol] 9.5 mmol/L 6.0-15.0 [facility] Serum or plasma non-glucuron idated bilirubin measurement (mass/volume)Ordered By: Matthew Leslie on 02-02-2023 Bilirubin.indirect [Mass/Vol] 0.5 mg/dL [facility] Sodium [Moles/volume] in Ser um or PlasmaOrdered By: Matthew Leslie on 02-02-2023 Sodium [Moles/Vol] 141 mmol/L 136-145 [facility] Specific gravity Auto test s trip (U) [Rel density]Ordered By: Matthew Leslie on 02-02-2023 Specific gravity (U) [Rel density] 1.027 1.001-1.030 [facility] Squamous epithelial cells de tection in urine sediment by light microscopyOrdered By: Matthew Leslie on 02-02-2023 Epithelial cells.squamous LM Ql (Urine sed) 3-4 [HPF] 0-2 [facility] Thyroid Stim Hormone w/Rflxo n 02-02-2023 Thyroid Stim Hormone w/Rflx 3.74 u[iU]/mL Normal 0.45-5.33 [facility] Comment on above: Performed By: #### U HCG, ADDONUAPLUS, URDS, CUU #### [address] Thyrotropin [Units/volume] i n Serum or PlasmaOrdered By: Matthew Leslie on 02-02-2023 TSH Qn 3.74 m[IU]/L 0.45-5.33 [facility] Urea nitrogen [Mass/volume] in Serum or PlasmaOrdered By: Matthew Leslie on 02-02-2023 Urea nitrogen [Mass/Vol] 11 mg/dL 7-25 [facility] Urine Cultureon 02-02-2023 Bacteria identified Cx Nom (U) No Growth 2 Days PERFORMED BY: [place] [address] PATHOLOGIST BRAIDER SETTER MOISES VELASCO M.D. Normal [facility] Comment on above: Performed By: #### U HCG, ADDONUAPLUS, URDS, CUU #### [facility] [address] Urine bacteria detection by automated methodOrdered By: Matthew Leslie on 02-02-2023 Bacteria Auto Ql (U) 1+ None Seen [facility] Urine clarity by refractomet ry automatedOrdered By: Matthew Lselie on 02-02-2023 Clarity Refractometry automated (U) Cloudy Clear [facility] Urine culture routineOrdered By: Matthew Leslie on 02-02-2023 Bacteria identified Cx Nom (U) No Growth 2 Days [facility] Urine glucose measurement by automated test strip (mass/volume)Ordered By: Matthew Leslie on 02-02-2023 Glucose Auto test strip (U) [Mass/Vol] Normal mg/dL Normal [facility] Urine hemoglobin detection b y automated test stripOrdered By: Matthew Leslie on 02-02-2023 Hemoglobin Auto test strip Ql (U) 3+ Negative [facility] Urine leukocyte esterase det ection by automated test stripOrdered By: Matthew Leslie on 02-02-2023 Leukocyte esterase Auto test strip Ql (U) 2+ Negative [facility] Urobilinogen Auto test strip (U) [Mass/Vol]Ordered By: Matthew Leslie on 02-02-2023 Urobilinogen (U) [Mass/Vol] Normal mg/dL Normal [facility] Vitamin D 25 Hydroxy Totalon 02-02-2023 Vitamin D 25 Hydroxy Total 54.2 ng/mL Normal 30-100 [facility] Comment on above: Result Comment: MABLE MIN D STATUS 25([place])VITAMIN D RANGE (ng/mL) Deficient <20 Insufficient 20 to <30 Sufficient 30 to 100 Reference: Miri MF,Nimisha NC, Luisa MCCRACKEN, et al. Evaluation,treatment, and prevention of vitamin D deficiency; an Endocrine Society clinical practice guideline. JCEM. 2010; 96(7):1911-30. PERFORMED BY: [place] [address] PATHOLOGIST BRAIDER SETTER MOISES VELASCO M.D. Performed By: #### U HCG, ADDONUAPLUS, URDS, CUU #### [facility] [address] [place] [address] Vitamin D+Metabolites [Mass/ volume] in Serum or PlasmaOrdered By: Matthew Leslie on 02-02-2023 Vitamin D+Metabolites [Mass/Vol] 54.2 ng/mL 30-100 [facility] Comment on above: VITAMIN D STATUS 25( [place])VITAMIN D RANGE (ng/mL) Deficient <20 Insufficient 20 to <30Sufficient 30 to 100Reference: Miri MF,Nimisha MCLAIN, Luisa MCCRACKEN, et al. Evaluation,treatment, and prevention of vitamin D deficiency; an Endocrine Society clinical practice guideline. JCEM. 2010; 96(7):1911-30. WBC Auto (Bld) [#/Vol]Ordere d By: Matthew Leslie on 02-02-2023 WBC (Bld) [#/Vol] 7.6 10*3/uL 3.8-11.6 [facility] Yeast detection in urine sed iment by light microscopyOrdered By: Matthew Leslie on 02-02-2023 Yeast LM Ql (Urine sed) None seen [HPF] None Se en [facility] pH Auto test strip (U)Ordere d By: Matthew Leslie on 02-02-2023 pH (U) 6.0 [pH] 5.0-9.0 [facility] AMNISUREon 09-16-2022 AMNISURE Positive Abnormal NEGATIVE [facility] Comment on above: Performed By: #### A MNI #### [facility] [address] [place] [address] Dr. Adrianna Caldera CBC AUTO DIFFon 09-16-2022 BASO # 0.1 103/ul Normal 0.0-0.1 [facility] Comment on above: Performed By: #### C BC #### [facility] [address] [address] [address] Adrianna Caldera Basophils/100 WBC (Bld) 0.4 % Normal 0.2-2.0 [facility] Comment on above: Performed By: #### C BC #### [facility] [address] [address] [address] Adrianna Caldera EO # 0.0 103/ul Normal 0.0-0.7 [facility] Comment on above: Performed By: #### C BC #### [facility] [address] [address] [address] Adrianna Caldera Eosinophils/100 WBC (Bld) 0.1 % Critically low 0.9-7.0 [facility] Comment on above: Performed By: #### C BC #### [facility] [address] [address] [address] Adrianna Caldera Erythrocyte distribution width (RBC) [Ratio] 12.3 % Normal 11.0-15.0 [facility] Comment on above: Performed By: #### C BC #### [facility] [address] [place] [address] Dr. Adrianna Caldera Hematocrit (Bld) [Volume fraction] 38.3 % Normal 36.0-48.0 [facility] Comment on above: Performed By: #### C BC #### [facility] [address] [place] [address] Dr. Adrianna Caldera Hemoglobin (Bld) [Mass/Vol] 12.8 g/dL Normal 12.0-16.0 [facility] Comment on above: Performed By: #### C BC #### [facility] [address] [place] [address] Dr. Adrianna Caldera IG # 0.20 10e3/ul Critically high 0.00-0.03 [facility] Comment on above: Performed By: #### C BC #### [facility] [address] [place] [address] Dr. Adrianna Caldera IG % 1.0 % Critically high 0.0-0.5 [facility] Comment on above: Performed By: #### C BC #### [facility] [address] [address] [address] Adrianna Caldera LYMPH # 1.5 103/ul Normal 1.2-3.8 [facility] Comment on above: Performed By: #### C BC #### [facility] [address] [place] [address] Dr. Adrianna Caldera Lymphocytes/100 WBC (Bld) 7.7 % Critically low 20.5-60.0 [facility] Comment on above: Performed By: #### C BC #### [facility] [address] [place] [address] Dr. Adrianna Caldera MANUAL DIFF REQ NO Normal [facility] Comment on above: Performed By: #### C BC #### [facility] [address] [place] [address] Dr. Adrianna Caldera MCH (RBC) [Entitic mass] 28.9 pg Normal 26.7-34.0 [facility] Comment on above: Performed By: #### C BC #### [facility] [address] [place] [address] Dr. Adrianna Caldera MCHC (RBC) [Mass/Vol] 33.4 g/dL Normal 29.9-35.2 [facility] Comment on above: Performed By: #### C BC #### [facility] [address] [place] [address] Dr. Adrianna Caldera MCV (RBC) [Entitic vol] 86.5 fL Normal 81.0-99.0 [facility] Comment on above: Performed By: #### C BC #### [facility] [address] [place] [address] Dr. Adrianna Caldera MONO # 0.3 103/ul Normal 0.3-0.8 [facility] Comment on above: Performed By: #### C BC #### [facility] [address] [place] [address] Dr. Adrianna Caldera Monocytes/100 WBC (Bld) 1.7 % Normal 1.7-12.0 [facility] Comment on above: Performed By: #### C BC #### [facility] [address] [place] [address] Dr. Adrianna Cadlera NEUT # 17.5 103/ul Critically high 1.4-6.5 [facility] Comment on above: Performed By: #### C BC #### [facility] [address] [place] [address] Dr. Adrianna Caldera Neutrophils/100 WBC (Bld) 89.1 % Critically high 43.0-75.0 [facility] Comment on above: Performed By: #### C BC #### [facility] [address] [place] [address] Dr. Adrianna Caldera Platelet mean volume (Bld) [Entitic vol] 10.7 fL Normal 9.5-13.5 [facility] Comment on above: Performed By: #### C BC #### [facility] [address] [place] [address] Dr. Adrianna Caldera PLT 356 103/ul Normal 150-450 [facility] Comment on above: Performed By: #### C BC #### [facility] [address] [place] [address] Dr. Adrianna Caldera RBC 4.43 106/ul Normal 4.20-5.40 [facility] Comment on above: Performed By: #### C BC #### [facility] [address] [place] [address] Dr. Adrianna Caldera WBC 19.6 103/ul Critically high 4.0-11.0 [facility] Comment on above: Performed By: #### C BC #### [facility] [address] [place] [address] Dr. Adrianna Caldera UA (CLEAN/CATCH) CHAR CONVEYOR TENDER CELLAR/MICRO I F IND.on 09-16-2022 Bilirubin Ql (U) Negative Normal NEGATIVE [facility] Comment on above: Performed By: #### U ACSIND #### [facility] [address] [place] [address] Dr. Adrianna Caldera Clarity (U) CLEAR Normal CLEAR [facility] Comment on above: Performed By: #### U ACSIND #### [facility] [address] [place] [address] Dr. Adrianna Caldera Color (U) LT. YELLOW Normal YELLOW [facility] Comment on above: Performed By: #### U ACSIND #### [facility] [address] [place] [address] Dr. Adrianna Caldera Glucose Ql (U) Negative Normal NEGATIVE The [place] Comment on above: Performed By: #### U ACSIND #### [facility] [address] [place] [address] Dr. Adrianna Caldera Hemoglobin Ql (U) Negative Normal NEGATIVE [facility] Comment on above: Performed By: #### U ACSIND #### [facility] [address] [address] [address] Adrianna Caldera Ketones Ql (U) Negative Normal NEGATIVE [facility] Comment on above: Performed By: #### U ACSIND #### [facility] [address] [address] [address] Adrianna Caldera LEUKOCYTES Negative Normal NEGATIVE [facility] Comment on above: Performed By: #### U ACSIND #### [facility] [address] [address] [address] Adrianna Caldera Nitrite Ql (U) Negative Normal NEGATIVE [facility] Comment on above: Performed By: #### U ACSIND #### [facility] [address] [place] [address] Dr. Adrianna Caldera pH (U) 5.5 [pH] Normal 5-9 [facility] Comment on above: Performed By: #### U ACSIND #### [facility] [address] [place] [address] Dr. Adrianna Caldera SPEC GRAVITY 1.010 Normal 1.005-<=1.0 25 [facility] Comment on above: Performed By: #### U ACSIND #### [facility] [address] [place] [address] Dr. Adrianna Caldera UA PROTEIN Negative Normal NEGATIVE/ TRACE [facility] Comment on above: Performed By: #### U ACSIND #### [facility] [address] [address] [address] Adrianna Caldera UR MICRO IND NOT INDICATED Normal The [facility] Comment on above: Performed By: #### U ACSIND #### [facility] [address] [address] [address] Adrianna Caldera Urobilinogen Qn (U) 0.2 {Micheal'U}/dL Normal 0.2 - 1. 0 [facility] Comment on above: Performed By: #### U ACSIND #### [facility] [address] [place] [address] Dr. Adrianna Caldera US PREG GROWTHon 04-20-2023 US PREG GROWTH EXAMINATION: US PREG GROWTH [...] KAROL SIDDIQUI Date: 2022-09-16 15:19 Normal [facility] UA (CLEAN/CATCH) CHAR CONVEYOR TENDER CELLAR/MICRO I F IND.on 09-04-2022 Bilirubin Ql (U) Negative Normal NEGATIVE [facility] Comment on above: Performed By: #### U ACSIND ####[facility] [address] [place], [place] [address]Dr. Adrianna Caldera Clarity (U) CLEAR Normal CLEAR [facility] Comment on above: Performed By: #### U ACSIND ####[facility] [address] [address]Dr. Adrianna Caldera Color (U) LT. YELLOW Normal YELLOW [facility] Comment on above: Performed By: #### U ACSIND ####[facility] [address] [address]Dr. Adrianna Caldera Glucose Ql (U) Negative Normal NEGATIVE [facility] [place] Comment on above: Performed By: #### U ACSIND ####[facility] [address] [address]Dr. Adrianna Caldera Hemoglobin Ql (U) Negative Normal NEGATIVE The [facility] Comment on above: Performed By: #### U ACSIND ####[facility] [address] [address]Dr. Jemimabenito Werner Ketones Ql (U) Negative Normal NEGATIVE [facility] [place] Comment on above: Performed By: #### U ACSIND ####[facility] [address] [address]Dr. Jemimabenito Werner LEUKOCYTES Negative Normal NEGATIVE [facility] Comment on above: Performed By: #### U ACSIND ####[facility] [address] [address]Dr. Adrianna Werner Nitrite Ql (U) Negative Normal NEGATIVE [facility] [place] Comment on above: Performed By: #### U ACSIND ####[facility] [address] [address]Dr. Adrianna Caldera pH (U) 7.5 [pH] Normal 5-9 [facility] Comment on above: Performed By: #### U ACSIND ####[facility] [address] [place], [place] [address]Dr. Adrianna Caldera SPEC GRAVITY 1.010 Normal 1.005-<=1.0 25 [facility] Comment on above: Performed By: #### U ACSIND ####[facility] [address] [place], [place] [address]Dr. Adrianna Caldera UA PROTEIN Negative Normal NEGATIVE/ TRACE [facility] Comment on above: Performed By: #### U ACSIND ####[facility] [address] [place], [place] [address]Dr. Adrianna Caldera UR MICRO IND NOT INDICATED Normal The [facility] Comment on above: Performed By: #### U ACSIND ####[facility] [address] [address]Dr. Adrianna Caldera Urobilinogen Qn (U) 0.2 {Micheal'U}/dL Normal 0.2 - 1. 0 [facility] Comment on above: Performed By: #### U ACSIND ####[facility] [address] [address]Dr. Adrianna Caldera GTT 3 HR PREGon 08-30-2022 Glucose [Mass/Vol] 88 mg/dL Normal 74-106 [facility] Comment on above: Performed By: #### G TT3P ####[facility] [address] [place], [place] [address]Cx. Adrianna Caldera Glucose [Mass/Vol] 167 mg/dL Normal [facility] Comment on above: Performed By: #### G TT3P ####[facility] [address] [id number]. Adrianna Caldera Glucose [Mass/Vol] 136 mg/dL Normal [facility] Comment on above: Performed By: #### G TT3P ####[facility] [address] [place], [place] [address]Zs. Adrianna Caldera Glucose [Mass/Vol] 144 mg/dL Normal [facility] Comment on above: Performed By: #### G TT3P ####[facility] [address] [id number]. Adrianna Caldera US PREG PLACENTAon 3 US [...] KAROL SIDDIQUI Date: 2022-08-17 15:46 Normal [facility] CBC with Diffon 08-10-2022 Abs. Basophil 0.04 k/uL Normal 0.00-0.20 [facility] Comment on above: Performed By: #### L TATA LOPEZ, CP #### [facility] [address] [place] [address] [employer] Supervisor: Cholo Alicea MD Abs.Imm.Granulocyte 0.10 k/uL Normal 0.00-0.30 [facility] Comment on above: Performed By: #### L TATA LOPEZ, CP #### [facility] [address] [place] [address] [employer] Supervisor: Cholo Alicea MD Abs.Neutrophil (Seg) 9.26 k/uL High 1.50-8.10 [facility] Comment on above: Performed By: #### L IP, CDP, CP #### [address] [place], [place] [address] [employer] Supervisor: Cholo Alicea MD Basophils/100 WBC (Bld) 0 % Normal 0-2 [facility] Comment on above: Performed By: #### L IP, CDP, CP #### [address] [place], [place] [address] [employer] Supervisor: Cholo Alicea MD Eosinophils (Bld) [#/Vol] 0.05 10*3/uL Normal 0.00-0.44 [facility] Comment on above: Performed By: #### L IP, CDP, CP #### [address] [place], [facility]83 [employer] Supervisor: Cholo Alicea MD Eosinophils/100 WBC (Bld) 0 % Low 1-4 [facility] Comment on above: Performed By: #### L IP CDP, CP #### [address] [place], [facility]83 [employer] Supervisor: Cholo Alicea MD Erythrocyte distribution width (RBC) [Ratio] 12.5 % Normal 11.8-14.4 [facility] Comment on above: Performed By: #### L IP, CDP, CP #### [address] [place], [facility]83 [employer] Supervisor: Cholo Alicea MD Hematocrit (Bld) [Volume fraction] 35.2 % Low 36.3-47.1 [facility] Comment on above: Performed By: #### L IP, CDP, CP #### [address] [place], [place] [id number] [employer] Supervisor: Cholo Alicea MD Hemoglobin (Bld) [Mass/Vol] 11.6 g/dL Low 11.9-15.1 [facility] Comment on above: Performed By: #### L IP, CDP, CP #### [address] [place] [address] [employer] Supervisor: Cholo Alicea MD Immature granulocytes/100 WBC (Bld) 1 % High 0 [facility] Comment on above: Performed By: #### L IP, CDP, CP #### [address] [place], [facility]83 [employer] Supervisor: Cholo Alicea MD Lymphocytes (Bld) [#/Vol] 1.99 10*3/uL Normal 1.10-3.70 [facility] Comment on above: Performed By: #### L IP, CDP, CP #### [address] [place], [facility]83 [employer] Supervisor: Cholo Alicea MD Lymphocytes/100 WBC (Bld) 17 % Low 24-43 [facility] Comment on above: Performed By: #### L JESSICA CDP, CP #### [address] [place], [facility]83 [employer] Supervisor: Cholo Alicea MD MCH (RBC) [Entitic mass] 30.8 pg Normal 25.2-33.5 [facility] Comment on above: Performed By: #### L JESSICA CDP, CP #### [address] [place], [facility]83 [employer] Supervisor: Cholo Alicea MD MCHC (RBC) [Mass/Vol] 33.0 g/dL Normal 28.4-34.8 [facility] Comment on above: Performed By: #### L IP, CDP, CP #### [address] [place] [address] [employer] Supervisor: Cholo Alicea MD MCV (RBC) [Entitic vol] 93.4 fL Normal 82.6-102.9 M [facility] Comment on above: Performed By: #### L IP, CDP, CP #### [facility] [address] [place], [facility]83 [employer] Supervisor: Cholo Alicea MD Monocytes (Bld) [#/Vol] 0.43 10*3/uL Normal 0.10-1.20 [facility] Comment on above: Performed By: #### L IP, CDP, CP #### [facility] [address] [place], [facility]83 [employer] Supervisor: Cholo Alicea MD Monocytes/100 WBC (Bld) 4 % Normal 3-12 [facility] Comment on above: Performed By: #### L IP, CDP, CP #### [address] [place], [facility]83 [employer] Supervisor: Cholo Alicea MD Neutrophil (Seg) 78 % High 36-65 [facility] Comment on above: Performed By: #### L IP, CDP, CP #### [address] [place], [facility]83 [employer] Supervisor: Cholo Alicea MD NRBC Automated 0.0 per 100 WBC Normal 0.0 [facility] Comment on above: Performed By: #### L IP, CDP, CP #### [address] [place], [place] [address] [employer] Supervisor: Cholo Alicea MD Platelet mean volume (Bld) [Entitic vol] 10.6 fL Normal 8.1-13.5 [facility] Comment on above: Performed By: #### L IP, CDP, CP #### [address] [place] [address] [employer] Supervisor: Cholo Alicea MD Platelets (Bld) [#/Vol] 333 10*3/uL Normal 138-453 [facility] Comment on above: Performed By: #### L IP, CDP, CP #### [facility] [address] [place], [place] [address] [employer] Supervisor: Cholo Alicea MD RBC (Bld) [#/Vol] 3.77 10*6/uL Low 3.95-5.11 [facility] Comment on above: Performed By: #### L IP, CDP, CP #### [facility] [address] [place], [place] [address] [employer] Supervisor: Cholo Alicea MD WBC (Bld) [#/Vol] 11.9 10*3/uL High 3.5-11.3 [facility] Comment on above: Performed By: #### L IP, CDP, CP #### [facility] [address] [place], [place] [address] [employer] Supervisor: Cholo Alicea MD Glucose Andrae Scr 50gon 2022 Glucose [Mass/Vol] 161 mg/dL High 70-135 [facility] Comment on above: Performed By: #### L IP, CDP, CP #### [facility] [address] [place], [place] [address] [employer] Supervisor: Cholo Alicea MD Glu Administered via Glucola Normal [facility] Comment on above: Performed By: #### L IP, CDP, CP #### [facility] [address] [place], [facility]83 [employer] Supervisor: Cholo Alicea MD UA (CLEAN/CATCH) CHAR CONVEYOR TENDER CELLAR/MICRO I F IND.on 07-21-2022 Bilirubin Ql (U) Negative Normal NEGATIVE [facility] Comment on above: Performed By: #### U ACSIND ####[facility] [address] [address]DrAung Caldera Clarity (U) CLEAR Normal CLEAR [facility] Comment on above: Performed By: #### U ACSIND ####[facility] [address] [address]DrAung Caldera Color (U) LT. YELLOW Normal YELLOW [facility] Comment on above: Performed By: #### U ACSIND ####[facility] [address] [address]Dr. Adrianna Caldera Glucose Ql (U) Negative Normal NEGATIVE [facility] [place] Comment on above: Performed By: #### U ACSIND ####[facility] [address] [address]Dr. Adrianna Caldera Hemoglobin Ql (U) Negative Normal NEGATIVE [facility] Comment on above: Performed By: #### U ACSIND ####[facility] [address] [address]Dr. Adrianna Caldera Ketones Ql (U) Negative Normal NEGATIVE [facility] [place] Comment on above: Performed By: #### U ACSIND ####[facility] [address] [place], [place] [address]Dr. Adrianna Caldera LEUKOCYTES Negative Normal NEGATIVE [facility] Comment on above: Performed By: #### U ACSIND ####[facility] [address] [place], [place] [address]Dr. Adrianna Caldrea Nitrite Ql (U) Negative Normal NEGATIVE [facility] [place] Comment on above: Performed By: #### U ACSIND ####[facility] [address] [place], [place] [address]Dr. Adrianna Caldera pH (U) 7.0 [pH] Normal 5-9 [facility] Comment on above: Performed By: #### U ACSIND ####[facility] [address] [place], [place] [address]Dr. Adrianna Caldera SPEC GRAVITY 1.010 Normal 1.005-<=1.0 25 [facility] Comment on above: Performed By: #### U ACSIND ####[facility] [address] [place], [place] [address]Dr. Adrianna Caldera UA PROTEIN Negative Normal NEGATIVE/ TRACE [facility] Comment on above: Performed By: #### U ACSIND ####[facility] [address] [place], [place] [address]Dr. Adrianna Caldera UR MICRO IND NOT INDICATED Normal [facility] Comment on above: Performed By: #### U ACSIND ####[facility] [address] [place], [place] [address]Fa. Adrianna Caldera Urobilinogen Qn (U) 0.2 {Micheal'U}/dL Normal 0.2 - 1. 0 [facility] Comment on above: Performed By: #### U ACSIND ####[facility] [address] [place], [place] [address]Ji. Adrianna Caldera US PREG ANATOMY SINGLEon US [...] by: KAROL SIDDIQUI Date: 2022-07-21 16:41 Normal [facility] PAP ACOG PANEL 2: 23 to 31on 07-12-2022 . . Normal [facility] Comment on above: Performed By: #### 4 [id number] ####[facility] [address] [id number] Caldera Age Gdln ACOG Testing 21-29 [facility] Comment on above: Performed By: #### 4 [id number] ####[facility] [address] [place], [place] [address]DrAung Caldera DIAGNOSIS: Comment Normal [facility] Comment on above: Result Comment: NEGA TIVE FOR INTRAEPITHELIAL LESION OR MALIGNANCY. Performed By: #### 4 [id number] ####[facility] [address] [place], [place] [address]Dr. Adrianna Caldera Methodology: Comment [facility] Comment on above: Result Comment: This liquid based ThinPrep(R) pap test was screened with the use of an image guided system. Performed By: #### 4 [id number] ####[facility] [address] [place], [place] [address]DrAung Caldera Note: Comment [facility] Comment on above: Result Comment: The Pap smear is a screening test designed to aid in the detection of premalignant and malignant conditions of the uterine cervix. It is not a diagnostic procedure and should not be used as the sole means of detecting cervical cancer. Both false-positive and false-negative reports do occur. . Performed By: #### 4 [id number] ####[facility] [address] [place], [place] [address]DrAung Caldera Performed by: Comment Normal [facility] Comment on above: Result Comment: [place] [employer] (ASCP) Performed By: #### 4 [id number] ####[facility] [address] [place], [place] [address]Dr. Adrianna Caldera Reflex Criteria: Comment [facility] Comment on above: Result Comment: The HPV DNA reflex criteria were not met with this specimen result therefore, no HPV testing was performed. . Performed By: #### 4 [id number] ####[facility] [address] [place], [place] [address]DrAung Caldera Specimen adequacy: Comment Normal [facility] Comment on above: Result Comment: Sati sfactory for evaluation. No endocervical component is identified. Performed By: #### 4 [id number] ####[facility] [address] [address]DrAung Caldera CHLAMYDIA/GONOCOCCUS ALEKSANDER (SW AB/URINE/PAPon 07-07-2022 Chlamydia trachomatis, ALEKSANDER Negative Normal Negative [facility] Comment on above: Performed By: #### C T/NGNA ####[facility] [address] [address]DrAung Caldera Neisseria gonorrhoeae, ALEKSANDER Negative Normal Negative [facility] Comment on above: Performed By: #### C T/NGNA ####[facility] [address] [address]DrAung Caldera VAGINITIS/VAGINOSIS DNA PROB Scott 07-07-2022 Sherley species Negative Normal Negative [facility] Comment on above: Performed By: #### U ACSIND #### [facility] [address] [address] [address] Adrianna Caldera Gardnerella vaginalis Negative Normal Negative [facility] Comment on above: Performed By: #### U ACSIND #### [facility] [address] [address] [address] Adrianna Caldera Trichomonas vaginalis Negative Normal Negative [facility] Comment on above: Performed By: #### U ACSIND #### [facility] [address] [address] [address] Adrianna Caldera Cult,Urineon 07-02-2022 Cult,Urine Specimen Description .CLEAN CATCH URINE Culture NO SIGNIFICANT GROWTH Report Status FINAL 07/02/2022 Normal [facility] Comment on above: Performed By: #### L IP, CDP, CP #### [facility] [address] [place] [address] [employer] Supervisor: Cholo Alicea MD ABO/RHon 06-30-2022 ABO/Rh Negative [facility] ABO/Rh(D)on 06-30-2022 ABO/Rh(D) Negative Normal [facility] Comment on above: Performed By: #### L IP, CDP, CP #### [facility] [address] [place] [address] [employer] Supervisor: Cholo Alicea MD CBC with Auto Differentialon 06-30-2022 Absolute Eos # 0.06 [facility] Absolute Immature Granulocyte 0.07 [facility] Absolute Lymph # 2.91 [facility] Absolute Woodruff # 0.66 [facility] Basophils (Bld) [#/Vol] 0.04 10*3/uL [facility] Basophils/100 WBC (Bld) 0 % 0 - 2 % B ON [facility] Eosinophils/100 WBC (Bld) 1 % 1 - 4 % [facility] Hematocrit (Bld) [Volume fraction] 35.2 % Low 36.3 - 47.1 % [facility] Hemoglobin (Bld) [Mass/Vol] 11.9 g/dL 11.9 - 15.1 g/dL [facility] Immature granulocytes/100 WBC (Bld) 1 % High 0 [facility] Interpretation and review of laboratory results Abnormal [facility] Lymphocytes/100 WBC (Bld) 24 % 24 - 43 % [facility] MCH (RBC) [Entitic mass] 30.7 pg 25.2 - 33.5 pg [facility] MCHC (RBC) [Mass/Vol] 33.8 g/dL 28.4 - 34.8 g/dL [facility] MCV (RBC) [Entitic vol] 91.0 fL 82.6 - 102.9 fL [facility] Monocytes/100 WBC (Bld) 5 % 3 - 12 % B ON [facility] NRBC Automated 0.0 0.0 per 100 WBC [facility] Platelet distribution width (Bld) [Ratio] 12.2 % 11.8 - 14.4 % [facility] Platelet mean volume (Bld) [Entitic vol] 10.5 fL 8.1 - 13.5 fL [facility] Platelets (Bld) [#/Vol] 301 10*3/uL [facility] RBC (Bld) [#/Vol] 3.87 10*6/uL Low 3.95 - 5.1 1 m/uL [facility] Segmented neutrophils/100 WBC (Bld) 69 % High 36 - 65 % [facility] Segs Absolute 8.40 High [facility] WBC (Bld) [#/Vol] 12.1 10*3/uL High [facility] CBC with Diffon 06-30-2022 Abs. Basophil 0.04 k/uL Normal 0.00-0.20 [facility] Comment on above: Performed By: #### L IP, CDP, CP #### [address] [place], [place] [id number] [employer] Supervisor: Cholo Alicea MD Abs.Imm.Granulocyte 0.07 k/uL Normal 0.00-0.30 [facility] Comment on above: Performed By: #### L IP, CDP, CP #### [address] [place], [place] [address] [employer] Supervisor: Cholo Alicea MD Abs.Neutrophil (Seg) 8.40 k/uL High 1.50-8.10 [facility] Comment on above: Performed By: #### L IP, CDP, CP #### [address] [place] [address] [employer] Supervisor: Cholo Alicea MD Basophils/100 WBC (Bld) 0 % Normal 0-2 [facility] Comment on above: Performed By: #### L IP, CDP, CP #### [address] [place], [place] [address] [employer] Supervisor: Cholo Alicea MD Eosinophils (Bld) [#/Vol] 0.06 10*3/uL Normal 0.00-0.44 [facility] Comment on above: Performed By: #### L IP, CDP, CP #### [address] [place] [id number] [employer] Supervisor: Cholo Alicea MD Eosinophils/100 WBC (Bld) 1 % Normal 1-4 [facility] Comment on above: Performed By: #### L IP, CDP, CP #### [address] [place], [facility]83 [employer] Supervisor: Cholo Alicea MD Erythrocyte distribution width (RBC) [Ratio] 12.2 % Normal 11.8-14.4 [facility] Comment on above: Performed By: #### L IP, CDP, CP #### [address] [place] [id number] [employer] Supervisor: Cholo Alicea MD Hematocrit (Bld) [Volume fraction] 35.2 % Low 36.3-47.1 [facility] Comment on above: Performed By: #### L IP, CDP, CP #### [address] [place], [facility]71 ( [employer] Supervisor: Cholo Alicea MD Hemoglobin (Bld) [Mass/Vol] 11.9 g/dL Normal 11.9-15.1 [facility] Comment on above: Performed By: #### L IP, CDP, CP #### [address] [place], [facility]83 [employer] Supervisor: Cholo Alicea MD Immature granulocytes/100 WBC (Bld) 1 % High 0 [facility] Comment on above: Performed By: #### L IP, CDP, CP #### [address] [place], [facility]83 [employer] Supervisor: Cholo Alicea MD Lymphocytes (Bld) [#/Vol] 2.91 10*3/uL Normal 1.10-3.70 [facility] Comment on above: Performed By: #### L IP, CDP, CP #### [address] [place], [facility]83 [employer] Supervisor: Cholo Alicea MD Lymphocytes/100 WBC (Bld) 24 % Normal 24-43 [facility] Comment on above: Performed By: #### L IP, CDP, CP #### [address] [place], [facility]83 [employer] Supervisor: Cholo Alicea MD MCH (RBC) [Entitic mass] 30.7 pg Normal 25.2-33.5 [facility] Comment on above: Performed By: #### L IP, CDP, CP #### [address] [place], [facility]83 [employer] Supervisor: Cholo Alicea MD MCHC (RBC) [Mass/Vol] 33.8 g/dL Normal 28.4-34.8 [facility] Comment on above: Performed By: #### L IP CDP, CP #### [address] [place], [place] [address] [employer] Supervisor: Cholo Alicea MD MCV (RBC) [Entitic vol] 91.0 fL Normal 82.6-102.9 [facility] Comment on above: Performed By: #### L TATA LOPEZ, CP #### [address] [place], [facility]83 [employer] Supervisor: Cholo Alicea MD Monocytes (Bld) [#/Vol] 0.66 10*3/uL Normal 0.10-1.20 [facility] Comment on above: Performed By: #### L IP, CDP, CP #### [address] [place], [place] [address] [employer] Supervisor: Cholo Alicea MD Monocytes/100 WBC (Bld) 5 % Normal 3-12 M [facility] Comment on above: Performed By: #### L IP, CDP, CP #### [address] [place], [facility]83 [employer] Supervisor: Cholo Alicea MD Neutrophil (Seg) 69 % High 36-65 [facility] Comment on above: Performed By: #### L IP, CDP, CP #### [facility] [address] [place], [place] [id number] [employer] Supervisor: Cholo Alicea MD NRBC Automated 0.0 per 100 WBC Normal 0.0 [facility] Comment on above: Performed By: #### L IP, CDP, CP #### [facility] [address] [place], [facility]83 [employer] Supervisor: Cholo Alicea MD Platelet mean volume (Bld) [Entitic vol] 10.5 fL Normal 8.1-13.5 [facility] Comment on above: Performed By: #### L IP CDP, CP #### [address] [place], [facility]83 [employer] Supervisor: Cholo Alicea MD Platelets (Bld) [#/Vol] 301 10*3/uL Normal 138-453 [facility] Comment on above: Performed By: #### L JESSICA CDP, CP #### [address] [place], [facility]83 [employer] Supervisor: Cholo Alicea MD RBC (Bld) [#/Vol] 3.87 10*6/uL Low 3.95-5.11 [facility] Comment on above: Performed By: #### L IP CDP, CP #### [address] [place], [facility]83 [employer] Supervisor: Cholo Alicea MD WBC (Bld) [#/Vol] 12.1 10*3/uL High 3.5-11.3 [facility] Comment on above: Performed By: #### L IP CDP, CP #### [facility] [address] [place] [address] [employer] Supervisor: Cholo Alicea MD CMPon 06-30-2022 Albumin [Mass/Vol] 3.6 g/dL 3.5 - 5.2 g/dL [facility] Albumin/Globulin [Mass ratio] 1.1 {ratio} 1.0 - 2.5 [facility] ALP [Catalytic activity/Vol] 74 U/L 35 - 104 U/L [facility] ALT [Catalytic activity/Vol] 9 U/L 5 - 33 U/L [facility] Anion gap [Moles/Vol] 13 mmol/L 9 - 17 mmol/L [facility] AST [Catalytic activity/Vol] 18 U/L NINF - 32 U/L [facility] Bilirubin [Mass/Vol] mg/dL Low 0.3 - 1 .2 mg/dL [facility] Calcium [Mass/Vol] 9.5 mg/dL 8.6 - 10. 4 mg/dL [facility] Chloride [Moles/Vol] 101 mmol/L 98 - 10 7 mmol/L [facility] CO2 [Moles/Vol] 21 mmol/L 20 - 31 mmol/L [facility] Creatinine [Mass/Vol] 0.55 mg/dL 0.50 - 0.90 mg/dL [facility] GFR/1.73 sq M.predicted MDRD (S/P/Bld) [Vol rate/Area] - PINF [facility] Comment on above: These results are not [...] [Mass/Vol] 84 mg/dL 70 - 99 mg/dL [facility] Interpretation and review of laboratory results Abnormal [facility] Potassium [Moles/Vol] 3.8 mmol/L 3.7 - 5.3 mmol/L [facility] Protein [Mass/Vol] 6.9 g/dL 6.4 - 8.3 g/dL [facility] Sodium [Moles/Vol] 135 mmol/L 135 - 144 mmol/L [facility] Urea nitrogen [Mass/Vol] 8 mg/dL 6 - 20 mg/dL [facility] Urea nitrogen/Creatinine (Bld) [Mass ratio] 15 9 - 20 [facility] Comp Metabolic Profon 2022 Bilirubin [Mass/Vol] mg/dL Low 0.3-1.2 [facility] Comment on above: Performed By: #### L IP, CDP, CP #### [facility] [address] [place], [place] [address] [employer] Supervisor: Cholo Alicea MD Albumin [Mass/Vol] 3.6 g/dL Normal 3.5-5.2 [facility] Comment on above: Performed By: #### L IP, CDP, CP #### [facility] [address] [place], [place] [id number] [employer] Supervisor: Cholo Alicea MD Albumin/Glob Ratio 1.1 Normal 1.0-2.5 [facility] Comment on above: Performed By: #### L IP, CDP, CP #### [address] [place], [place] [id number] [employer] Supervisor: Cholo Alicea MD Alkaline Phos 74 U/L Normal 35-104 [facility] Comment on above: Performed By: #### L IP, CDP, CP #### [facility] [address] [place], [place] [id number] [employer] Supervisor: Cholo Alicea MD ALT [Catalytic activity/Vol] 9 U/L Normal 5-33 [facility] Comment on above: Performed By: #### L IP, CDP, CP #### [facility] [address] [place], [place] [id number] [employer] Supervisor: Cholo Alicea MD Anion gap [Moles/Vol] 13 mmol/L Normal 9-17 [facility] Comment on above: Performed By: #### L IP, CDP, CP #### [facility] [address] [place], [place] [id number] [employer] Supervisor: Cholo Alicea MD AST [Catalytic activity/Vol] 18 U/L Normal <32 [facility] Comment on above: Performed By: #### L IP, CDP, CP #### [facility] [address] [place] [address] [employer] Supervisor: Cholo Alicea MD BUN/CRE Ratio 15 Normal 9-20 [facility] Comment on above: Performed By: #### L IP, CDP, CP #### [facility] [address] [place], [place] [id number] [employer] Supervisor: Cholo Alicea MD Calcium [Mass/Vol] 9.5 mg/dL Normal 8.6-10.4 [facility] Comment on above: Performed By: #### L IP, CDP, CP #### [facility] [address] [place] [address] [place], [place] [id number] [employer] Supervisor: Cholo Alicea MD Chloride [Moles/Vol] 101 mmol/L Normal 98-107 [facility] Comment on above: Performed By: #### L IP, CDP, CP #### [address] [place], [place] [address]483 [employer] Supervisor: Cholo Alicea MD CO2 [Moles/Vol] 21 mmol/L Normal 20-31 [facility] Comment on above: Performed By: #### L IP, CDP, CP #### [facility] [address] [place] [address] [employer] Supervisor: Cholo Alicea MD Creatinine [Mass/Vol] 0.55 mg/dL Normal 0.50-0.90 [facility] Comment on above: Performed By: #### L IP, CDP, CP #### [facility] [address] [place] [address] [employer] Supervisor: Cholo Alicea MD GFR/1.73 sq M.predicted among non-blacks MDRD (S/P/Bld) [Vol rate/Area] mL/min/{1.73_m2} Normal >60 [facility] Comment on above: Result Comment: These [...] renal tubular secretion. Performed By: #### L TATA LOPEZ, CP #### [facility] [address] [place] [address] [place] [address] [employer] Supervisor: Cholo Alicea MD Glucose [Mass/Vol] 84 mg/dL Normal 70-99 [facility] Comment on above: Performed By: #### L TATA LOPEZ, CP #### [address] [place] [address] [employer] Supervisor: Cholo Alicea MD Potassium [Moles/Vol] 3.8 mmol/L Normal 3.7-5.3 [facility] Comment on above: Performed By: #### L TATA LOPEZ, CP #### [address] [place] [address] [employer] Supervisor: Cholo Alicea MD Protein [Mass/Vol] 6.9 g/dL Normal 6.4-8.3 [facility] Comment on above: Performed By: #### L TATA LOPEZ, CP #### [facility] [address] [place] [address] [place] [address] [employer] Supervisor: Cholo Alicea MD Sodium [Moles/Vol] 135 mmol/L Normal 135-144 [facility] Comment on above: Performed By: #### L JESSICA CDP, CP #### [facility] [address] [place] [address] [place] [address] [employer] Supervisor: Cholo Alicea MD Urea nitrogen [Mass/Vol] 8 mg/dL Normal 6-20 [facility] Comment on above: Performed By: #### L TATA LOPEZ, CP #### [facility] [address] [place] [address] [employer] Supervisor: Cholo Alicea MD Lipaseon 06-30-2022 Lipase [Catalytic activity/Vol] 30 U/L Normal 13-60 [facility] Comment on above: Performed By: #### L TATA LOPEZ, CP #### [facility] [address] [place] [address] [employer] Supervisor: Cholo Alicea MD Lipase [Catalytic activity/Vol] 30 U/L 13 - 60 U/L [facility] Microscopic Urinalysison Bacteria, UA 2+ Abnormal None [facility] Epithelial Cells UA 0 TO 2 [facility] Interpretation and review of laboratory results Abnormal [facility] Mucus, UA 3+ Abnormal None [facility] RBC clumps Auto (Urine sed) [#/Area] 0 TO 2 [facility] WBC, UA 0 TO 2 [facility] PTon 06-30-2022 INR Coag (PPP) [Relative time] 1.0 {INR} Normal [facility] Comment on above: Result Comment: Therapeutic Range: Moderate Anticoagulant Intensity: INR = 2.0-3.0 High Anticoagulant Intensity: INR = 2.5-3.5 Performed By: #### L TATA LOPEZ, CP #### [facility] [address] [place] [address] [employer] Supervisor: Cholo Alicea MD PT Coag (PPP) [Time] 13.3 s Normal 11.5-14.2 [facility] Comment on above: Performed By: #### L TATA LOPEZ, CP #### [facility] [address] [place] [address] [employer] Supervisor: Cholo Alicea MD Protime-INRon 06-30-2022 INR Coag (PPP) [Relative time] 1.0 {INR} [facility] Comment on above: Therapeutic Range: Moderate Anticoagulant Intensity: INR = 2.0-3.0 High Anticoagulant Intensity: INR = 2.5-3.5 PT Coag (PPP) [Time] 13.3 s [facility] UA w/Reflex Cultureon 2022 Bilirubin, SemiQt,Ur Negative Normal NEG [facility] Comment on above: Performed By: #### U MICAO, UAX #### [facility] [address] [place], [place] [id number] [employer] Supervisor: Cholo Alicea MD Blood, Urine Negative Normal NEG [facility] Comment on above: Performed By: #### U MICAO, UAX #### [facility] [address] [place] [address] [employer] Supervisor: Cholo Alicea MD Clarity (U) Clear Normal CLEAR [facility] Comment on above: Performed By: #### U MICAO, UAX #### [facility] [address] [place], [place] [address]83 [employer] Supervisor: Cholo Alicea MD Color (U) Yellow Normal YEL [facility] Comment on above: Performed By: #### U MICAO, UAX #### [facility] [address] [place] [address] [place], [place] [id number] [employer] Supervisor: Cholo Alicea MD Glucose Ql (U) Negative Normal NEG [facility] Comment on above: Performed By: #### U MICAO, UAX #### [facility] [address] [place] [address] [employer] Supervisor: Cholo Alicea MD Ketones Ql (U) Negative Normal NEG [facility] Comment on above: Performed By: #### U MICAO, UAX #### [facility] [address] [place] [address] [employer] Supervisor: Cholo Alicea MD Leukocyte esterase Test strip Ql (U) Negative Normal NEG [facility] Comment on above: Performed By: #### U MICAO, UAX #### [facility] [address] [place], [place] [address]83 [employer] Supervisor: Cholo Alicea MD Nitrite,Ur Negative Normal NEG [facility] Comment on above: Performed By: #### U MICAO, UAX #### [facility] [address] [place], [place] [id number] [employer] Supervisor: Cholo Alicea MD PH,Ur 6.0 Normal 5.0-9.0 [facility] Comment on above: Performed By: #### U MICAO, UAX #### [facility] [address] [place] [address] [place], [place] [address]83 [employer] Supervisor: Cholo Alicea MD Protein Ql (U) Negative Normal NEG [facility] Comment on above: Performed By: #### U MICAO, UAX #### [facility] [address] [place] [address] [place], [place] 1097383 [employer] Supervisor: Cholo Alicea MD Spec. [place],Ur 1.025 High 1.010-1.020 [facility] Comment on above: Performed By: #### U MICAO, UAX #### [address] [place], [place] [id number] [employer] Supervisor: Cholo Alicea MD Urobilinogen,Ur Normal Normal NORM [facility] Comment on above: Performed By: #### U MICAO, UAX #### [facility] [address] [place] [address] [employer] Supervisor: Cholo Alicea MD Urinalysis with Reflex to Cu ltureon 06-30-2022 Bilirubin Urine Negative NEGATIVE [facility] Color, UA Yellow Yellow [facility] Glucose Auto test strip (U) [Mass/Vol] Negative NEGATIVE [facility] Interpretation and review of laboratory results Abnormal [facility] Ketones (U) [Mass/Vol] Negative NEGATIVE [facility] Leukocyte esterase Auto test strip Ql (U) Negative NEGATIVE [facility] Nitrite Auto test strip Ql (U) Negative NEGATIVE [facility] Protein (U) [Mass/Vol] 6.0 mg/dL 5.0 - 9.0 [facility] Protein (U) [Mass/Vol] Negative NEGATIVE [facility] Specific [place], UA 1.025 High 1.010 - 1.020 [facility] Turbidity UA Clear Clear [facility] Urine Hgb Negative NEGATIVE [facility] Urobilinogen, Urine Normal Normal [facility] Urinalysis,Microon 3 Bacteria 2+ Abnormal [facility] Comment on above: Performed By: #### U MICAO, UAX #### [facility] [address] [place] [id number] [employer] Supervisor: Cholo Alicea MD Epithelial cells LM Ql (Urine sed) 0 TO 2 Normal 0-25 [facility] Comment on above: Performed By: #### U MICAO, UAX #### [facility] [address] [place] [address] [place] [id number] [employer] Supervisor: Cholo Alicea MD Mucus Strands 3+ Abnormal [facility] Comment on above: Performed By: #### U MICAO, UAX #### [facility] [address] [place] [address] [employer] Supervisor: Cholo Alicea MD Urine RBC's 0 TO 2 Normal 0-2 [facility] Comment on above: Performed By: #### U MICAO, UAX #### [facility] [address] [place] [address] [employer] Supervisor: Cholo Alicea MD Urine WBC's 0 TO 2 Normal 0-5 [facility] Comment on above: Performed By: #### U MICAO, UAX #### [facility] [address] [place] [address] [employer] Supervisor: Cholo Alicea MD No Panel Informationon 06-17 Body mass index (BMI) [Percentile] Per age and sex 0.1 {percentile} Invalid Interpretation Code Integrity Tracking [id number] Per age and sex 0.1 {percentile} Invalid Interpretation Code Integrity Tracking HEP B SURFACE ANTIGEN SCREEN on 06-08-2022 HBsAg Screen Negative Normal Negative [facility] Comment on above: Performed By: #### U ACSIND #### [facility] [address] [place] [address] Dr. Adrianna Caldera HEPATITIS C VIRUS AB W/ REFL EX QUANTon 06-08-2022 HCV AB <0.1 Normal 0.0-0.9 [facility] Comment on above: Performed By: #### U ACSIND #### [facility] [address] [place] [address] Dr. Adrianna Caldera Interpretation: Comment Normal [facility] Comment on above: Result Comment: Nega tive Not infected with HCV, unless recent infection is suspected or other evidence exists to indicate HCV infection. Performed By: #### U ACSIND #### [facility] [address] [place] [address] Dr. Adrianna Caldera HIV 1 AND 2 WITH REFLEXon HIV Screen 4th Generation wRfx Non-Reactive Normal Non Reactive [facility] Comment on above: Result Comment: HIV Negative HIV-1/HIV-2 antibodies and HIV-1 p24 antigen were NOT detected. There is no laboratory evidence of HIV infection. Performed By: #### U ACSIND #### [facility] [address] [place] [address] Dr. Adrianna Caldera RPR QUANTon 06-08-2022 Rapid Plasma Reagin, Quant Non-Reactive Normal NonRea<1:1 [facility] Comment on above: Result Comment: Plea se Note: This test does not meet current guidelines for screening and diagnosis of syphilis. This test is intended for following treatment response in patients being treated for syphilis infection. To screen for syphilis infection, a reflex cascade that includes both RPR and a treponema-specific assay should be utilized, such as Treponema pallidum (Syphilis) Screening [place] (104087) or Rapid Plasma Reagin (RPR) Test With Reflex to Quantitative RPR and Confirmatory Treponema pallidum Antibodies (028522). Performed By: #### U ACSIND #### [facility] [address] [place] [address] Dr. Adrianna Caldera RUBELLA AB IGGon 06-08-2022 Rubella Antibodies, IgG 4.69 index Normal Immu ne >0.99 [facility] Comment on above: Result Comment: Non- immune <0.90 Equivocal 0.90 - 0.99 Immune >0.99 Performed By: #### R UBIGG ####[facility] [id number] [place] [address]Dr. Adrianna Caldera CBC AUTO DIFFon 06-05-2022 BASO # 0.0 103/ul Normal 0.0-0.1 [facility] Comment on above: Performed By: #### C BC #### [facility] [address] [place] [address] Dr. Adrianna Caldera Basophils/100 WBC (Bld) 0.3 % Normal 0.2-2.0 [facility] Comment on above: Performed By: #### C BC #### [facility] [address] [place] [address] Dr. Adrianna Caldera EO # 0.1 103/ul Normal 0.0-0.7 [facility] Comment on above: Performed By: #### C BC #### [facility] [address] [place] [address] Dr. Adrianna Caldera Eosinophils/100 WBC (Bld) 0.6 % Critically low 0.9-7.0 [facility] Comment on above: Performed By: #### C BC #### [facility] [address] [place] [address] Dr. Adrianna Caldera Erythrocyte distribution width (RBC) [Ratio] 11.7 % Normal 11.0-15.0 [facility] Comment on above: Performed By: #### C BC #### [facility] [address] [place] [address] Dr. Adrianna Caldera Hematocrit (Bld) [Volume fraction] 33.8 % Critically low 36.0-48.0 [facility] Comment on above: Performed By: #### C BC #### [facility] [address] [place] [address] Dr. Adrianna Caldera Hemoglobin (Bld) [Mass/Vol] 12.6 g/dL Normal 12.0-16.0 [facility] Comment on above: Performed By: #### C BC #### [facility] [address] [place] [address] Dr. Adrianna Caldera IG # 0.05 10e3/ul Critically high 0.00-0.03 [facility] Comment on above: Performed By: #### C BC #### [facility] [address] [place] [address] Dr. Adrianna Caldera IG % 0.4 % Normal 0.0-0.5 [facility] Comment on above: Performed By: #### C BC #### [facility] [address] [place] [address] Dr. Adrianna Caldera LYMPH # 2.4 103/ul Normal 1.2-3.8 [facility] Comment on above: Performed By: #### C BC #### [facility] [address] [place] [address] Dr. Adrianna Caldera Lymphocytes/100 WBC (Bld) 21.1 % Normal 20.5-60.0 [facility] Comment on above: Performed By: #### C BC #### [facility] [address] [place] [address] Dr. Adrianna Caldera MANUAL DIFF REQ NO Normal [facility] Comment on above: Performed By: #### C BC #### [facility] [address] [place] [address] Dr. Adrianna Caldera MCH (RBC) [Entitic mass] 30.3 pg Normal 26.7-34.0 [facility] Comment on above: Performed By: #### C BC #### [facility] [address] [place] [address] Dr. Adrianna Caldera MCHC (RBC) [Mass/Vol] 37.3 g/dL Critically high 29.9-35.2 [facility] Comment on above: Performed By: #### C BC #### [facility] [address] [place] [address] [address] Adrianna Caldera MCV (RBC) [Entitic vol] 81.3 fL Normal 81.0-99.0 [facility] Comment on above: Performed By: #### C BC #### [facility] [address] [place] [address] [address] Adrianna Caldera MONO # 0.6 103/ul Normal 0.3-0.8 [facility] Comment on above: Performed By: #### C BC #### [facility] [address] [place] [address] Dr. Adrianna Caldera Monocytes/100 WBC (Bld) 5.4 % Normal 1.7-12.0 [facility] Comment on above: Performed By: #### C BC #### [facility] [address] [place] [address] Dr. Adrianna Caldera NEUT # 8.3 103/ul Critically high 1.4-6.5 [facility] Comment on above: Performed By: #### C BC #### [facility] [address] [place] [address] Dr. Adrianna Caldera Neutrophils/100 WBC (Bld) 72.2 % Normal 43.0-75.0 [facility] Comment on above: Performed By: #### C BC #### [facility] [address] [place] [address] Dr. Adrianna Caldera Platelet mean volume (Bld) [Entitic vol] 10.6 fL Normal 9.5-13.5 [facility] Comment on above: Performed By: #### C BC #### [facility] [address] [place] [address] Dr. Adrianna Caldera PLT 253 103/ul Normal 150-450 [facility] Comment on above: Performed By: #### C BC #### [facility] [address] [place] [address] Dr. Adrianna Caldera RBC 4.16 106/ul Critically low 4.20-5.40 [facility] Comment on above: Performed By: #### C BC #### [facility] [address] [address] [address] Adrianna Caldera WBC 11.6 103/ul Critically high 4.0-11.0 [facility] Comment on above: Performed By: #### C BC #### [facility] [address] [address] [address] Adrianna Caldera CULTURE URINEon 06-05-2022 CULTURE URINE Culture Observations: LIGHT GROWTH OF MIXED GENITAL JIGAR. NO POTENTIAL PATHOGENS SEEN. Normal [facility] Comment on above: Performed By: #### U RCX ####[facility] [id number] [place] [address]Dr. Adrianna Caldera GLYCOHEMOGLOBIN A1Con 2022 ADA RECOMMENDATION SEE BELOW Normal [facility] Comment on above: Result Comment: ADA RECOMMENDED LIMIT 4.0 - 6.0 ADA THERAPEUTIC TARGET < 7.0 ACTION SUGGESTED > 7.0 Performed By: #### P REGQNT #### [facility] Laboratory [address] [address] [address] Adrianna Caldera Glucose [Mass/Vol] 105 mg/dL Normal [facility] Comment on above: Performed By: #### P REGQNT #### [facility] Laboratory [address] [address] [address] Adrianna Caldera HbA1c (Bld) [Mass fraction] 5.3 % Normal 4.5-6.2 [facility] Comment on above: Performed By: #### P REGQNT #### [facility] Laboratory [address] [address] [address] Adrianna Caldera TYPE AND SCREENon 06-05-2022 TYPE AND SCREEN Negative Normal [facility] Comment on above: Performed By: #### T NS ####[facility] [id number] [address]Dr. Adrianna Caldera US PREG <14 WKSon 05-27-2022 US PREG <14 WKS US PELVIS: OB LESS THAN 14 WEEKS HISTORY: G 1 P 0 [...] GOVIND JOHNSTON Date: 2022-05-26 22:31 Normal [facility] CBC AUTO DIFFon 05-26-2022 BASO # 0.1 103/ul Normal 0.0-0.1 [facility] Comment on above: Performed By: #### U ACSIND #### [facility] Laboratory [address] [place] [address] Dr. Adrianna Caldera Basophils/100 WBC (Bld) 0.5 % Normal 0.2-2.0 [facility] Comment on above: Performed By: #### U ACSIND #### [facility] Laboratory [address] [address] [address] Adrianna Caldera EO # 0.1 103/ul Normal 0.0-0.7 [facility] Comment on above: Performed By: #### U ACSIND #### [facility] Laboratory [address] [address] [address] Adrianna Caldera Eosinophils/100 WBC (Bld) 0.5 % Critically low 0.9-7.0 [facility] Comment on above: Performed By: #### U ACSIND #### [facility] Laboratory [address] [place] [address] Dr. Adrianna Caldera Erythrocyte distribution width (RBC) [Ratio] 11.9 % Normal 11.0-15.0 [facility] Comment on above: Performed By: #### U ACSIND #### [facility] Laboratory [address] [place] [address] Dr. Adrianna Caldera Hematocrit (Bld) [Volume fraction] 37.5 % Normal 36.0-48.0 [facility] Comment on above: Performed By: #### U ACSIND #### [facility] Laboratory [address] [place] [address] Dr. Adrianna Caldera Hemoglobin (Bld) [Mass/Vol] 12.8 g/dL Normal 12.0-16.0 [facility] Comment on above: Performed By: #### U ACSIND #### [facility] Laboratory [address] [place] [address] Dr. Adrianna Caldera IG # 0.04 10e3/ul Critically high 0.00-0.03 [facility] Comment on above: Performed By: #### U ACSIND #### [facility] Laboratory [address] [place] [address] Dr. Adrianna Caldera IG % 0.4 % Normal 0.0-0.5 [facility] Comment on above: Performed By: #### U ACSIND #### [facility] Laboratory [address] [place] [address] Dr. Adrianna Caldera LYMPH # 3.0 103/ul Normal 1.2-3.8 [facility] Comment on above: Performed By: #### U ACSIND #### [facility] Laboratory [address] [place] [address] Dr. Adrianna Caldera Lymphocytes/100 WBC (Bld) 27.0 % Normal 20.5-60.0 [facility] Comment on above: Performed By: #### U ACSIND #### [facility] Laboratory [address] [address] [address] Adrianna Caldera MANUAL DIFF REQ NO Normal [facility] Comment on above: Performed By: #### U ACSIND #### [facility] Laboratory [address] [address] [address] Adrianna Caldera MCH (RBC) [Entitic mass] 29.8 pg Normal 26.7-34.0 [facility] Comment on above: Performed By: #### U ACSIND #### [facility] Laboratory [address] [address] [address] Adrianna Caldera MCHC (RBC) [Mass/Vol] 34.1 g/dL Normal 29.9-35.2 [facility] Comment on above: Performed By: #### U ACSIND #### [facility] Laboratory [address] [address] [address] Adrianna Caldera MCV (RBC) [Entitic vol] 87.4 fL Normal 81.0-99.0 [facility] Comment on above: Performed By: #### U ACSIND #### [facility] Laboratory [address] [address] [address] Adrianna Caldera MONO # 0.7 103/ul Normal 0.3-0.8 [facility] Comment on above: Performed By: #### U ACSIND #### [facility] Laboratory [address] [address] [address] Adrianna Caldera Monocytes/100 WBC (Bld) 6.3 % Normal 1.7-12.0 [facility] Comment on above: Performed By: #### U ACSIND #### [facility] Laboratory [address] [address] [address] Adrianna Caldera NEUT # 7.2 103/ul Critically high 1.4-6.5 [facility] Comment on above: Performed By: #### U ACSIND #### [facility] Laboratory [address] [address] [address] Adrianna Caldera Neutrophils/100 WBC (Bld) 65.3 % Normal 43.0-75.0 [facility] Comment on above: Performed By: #### U ACSIND #### [facility] Laboratory [address] [address] [address] Adrianna Caldera Platelet mean volume (Bld) [Entitic vol] 10.3 fL Normal 9.5-13.5 [facility] Comment on above: Performed By: #### U ACSIND #### [facility] Laboratory [address] [address] [address] Adrianna Caldera PLT 316 103/ul Normal 150-450 [facility] Comment on above: Performed By: #### U ACSIND #### [facility] Laboratory [address] [address] [address] Adrianna Caldera RBC 4.29 106/ul Normal 4.20-5.40 [facility] Comment on above: Performed By: #### U ACSIND #### [facility] Laboratory [address] [address] [address] Adrianna Caldera WBC 11.0 103/ul Normal 4.0-11.0 [facility] Comment on above: Performed By: #### U ACSIND #### [facility] Laboratory [address] [place] [address] ABD/PELV W CONon 05-26-[address] ABD/PELV W CON CT ABDOMEN AND PELVIS WITH CONTRAST: INDICATION: Acute appendicitis. COMPARISON: 07/02/2021. [...] calcifications are present. VASCULATURE: Vascularity is unremarkable. PERITONEUM/RETROPERI TONEUM: Peritoneum/retroperi toneum is unremarkable. LYMPH NODES: No suspicious lymphadenopathy. [...] ISIDRO AVILA Date: 2022-05-26 19:39 Normal [facility] SARS-CoV-2 (COVID-19) RNA ALEKSANDER+probe Ql (Unsp spec) Not detected Normal NOT DETECTED [facility] Comment on above: Result Comment: When [...] for this test is supported by the [place] of [employer] and Human Service's declaration that [...] used). Performed By: #### U ACSIND #### [facility] Laboratory [address] [place] [address] Dr. Adrianna Caldera ER URINE PROFILEon 2 Bilirubin Ql (U) Negative Normal NEGATIVE [facility] Comment on above: Performed By: #### P REGQNT #### [facility] Laboratory [address] [place] [address] Dr. Adrianna Caldera Clarity (U) CLEAR Normal CLEAR [facility] Comment on above: Performed By: #### P REGQNT #### [facility] [address] [place] [address] Dr. Adrianna Caldera Color (U) YELLOW Normal YELLOW [facility] Comment on above: Performed By: #### P REGQNT #### [facility] Laboratory [address] [place] [address] Dr. Adrianna LINARES A micrscopic examination will be performed if indicated. Normal [facility] Comment on above: Performed By: #### P REGQNT #### [facility] Laboratory [address] [place] [address] Dr. Adrianna Caldera Glucose Ql (U) Negative Normal NEGATIVE [facility] [place] Comment on above: Performed By: #### P REGQNT #### [facility] [address] [place] [address] Dr. Adrianna Caldera Hemoglobin Ql (U) Negative Normal NEGATIVE [facility] Comment on above: Performed By: #### P REGQNT #### [facility] [address] [place] [address] Dr. Adrianna Caldera Ketones Ql (U) 15 mg/dl Abnormal NEGATIVE [facility] Comment on above: Performed By: #### P REGQNT #### [facility] [address] [place] [address] Dr. Adrianna Caldera LEUKOCYTES Negative Normal NEGATIVE [facility] Comment on above: Performed By: #### P REGQNT #### [facility] [address] [place] [address] Dr. Adrianna Caldera Nitrite Ql (U) Negative Normal NEGATIVE [facility] Comment on above: Performed By: #### P REGQNT #### [facility] [address] [place] [address] Dr. Adrianna Caldera pH (U) 7.5 [pH] Normal 5-9 [facility] Comment on above: Performed By: #### P REGQNT #### [facility] [address] [place] [address] Dr. Adrianna Caldera SPEC GRAVITY 1.020 Normal 1.005-<=1.0 25 [facility] Comment on above: Performed By: #### P REGQNT #### [facility] [address] [place] [address] Dr. Adrianna Caldera UA PROTEIN Negative Normal NEGATIVE/ TRACE [facility] Comment on above: Performed By: #### P REGQNT #### [facility] [address] [place] [address] Dr. Adrianna Caldera UR MICRO IND NOT INDICATED Normal [facility] Comment on above: Performed By: #### P REGQNT #### [facility] [address] [place] [address] Dr. Adrianna Caldera Urobilinogen Qn (U) 0.2 {Micheal'U}/dL Normal 0.2 - 1. 0 [facility] Comment on above: Performed By: #### P REGQNT #### [facility] [address] [address] [address] Adrianna Caldera LIPASEon 05-26-2022 Lipase [Catalytic activity/Vol] 116.0 U/L Normal 73.0-393.0 [facility] Comment on above: Performed By: #### L IPA, CMP #### [facility] Laboratory [address] [place] [address] Dr. Adrianna Caldera PROF 14(COMP METB)on 022 Albumin [Mass/Vol] 3.6 g/dL Normal 3.4-5.0 [facility] Comment on above: Performed By: #### L IPA, CMP #### [facility] Laboratory [address] [place] [address] Dr. Adrianna Caldera Albumin/Globulin [Mass ratio] 0.9 {ratio} Normal [facility] Comment on above: Performed By: #### L IPA, CMP #### [facility] [address] [place] [address] Dr. Adrianna Caldera ALP [Catalytic activity/Vol] 57 U/L Normal 46-116 [facility] Comment on above: Performed By: #### L IPA, CMP #### [facility] [address] [place] [address] Dr. Adrianna Caldera ALT [Catalytic activity/Vol] 13 U/L Critically low 14-59 [facility] Comment on above: Performed By: #### L IPA, CMP #### [facility] [address] [place] [address] Dr. Adrianna Caldera Anion gap [Moles/Vol] 10.6 mmol/L Normal [facility] Comment on above: Performed By: #### L IPA, CMP #### [facility] [address] [address] [address] Adrianna Caldera AST [Catalytic activity/Vol] 12 U/L Critically low 15-37 [facility] Comment on above: Performed By: #### L IPA, CMP #### [facility] [address] [address] [address] Adrianna Caldera Bilirubin [Mass/Vol] 0.2 mg/dL Normal 0.2-1.0 [facility] Comment on above: Performed By: #### L IPA, CMP #### [facility] [address] [address] [address] Adrianna Caldera Calcium [Mass/Vol] 8.9 mg/dL Normal 8.5-10.1 [facility] Comment on above: Performed By: #### L IPA, CMP #### [facility] [address] [address] [address] Adrianna Caldera Chloride [Moles/Vol] 102 mmol/L Normal 98-107 [facility] Comment on above: Performed By: #### L IPA, CMP #### [facility] [address] [address] [address] Adrianna Caldera CO2 [Moles/Vol] 26.0 mmol/L Normal 21.0-32.0 [facility] Comment on above: Performed By: #### L IPA, CMP #### [facility] [address] [place] [address] Dr. Adrianna Caldera Creatinine [Mass/Vol] 0.61 mg/dL Normal 0.55-1.02 [facility] Comment on above: Performed By: #### L IPA, CMP #### [facility] [address] [address] [address] Adrianna Caldera EGFR-AF ECUADOREAN >60 Normal >=60 [facility] Comment on above: Performed By: #### L IPA, CMP #### [facility] [address] [address] [address] Adrianna Caldera EGFR-NON AF ECUADOREAN >60 Normal >=60 [facility] Comment on above: Performed By: #### L IPA, CMP #### [facility] [address] [address] [address] Adrianna Caldera Globulin (S) [Mass/Vol] 3.8 g/dL Normal [facility] Comment on above: Performed By: #### L IPA, CMP #### [facility] [address] [address] [address] Adrianna Caldera Glucose [Mass/Vol] 82 mg/dL Normal 74-106 [facility] Comment on above: Performed By: #### L IPA, CMP #### [facility] [address] [address] [address] Adrianna Caldera Potassium [Moles/Vol] 3.6 mmol/L Normal 3.5-5.1 [facility] Comment on above: Performed By: #### L IPA, CMP #### [facility] [address] [address] [address] Adrianna Caldera Protein [Mass/Vol] 7.4 g/dL Normal 6.4-8.2 [facility] Comment on above: Performed By: #### L IPA, CMP #### [facility] [address] [address] [address] Adrianna Caldera Sodium [Moles/Vol] 135 mmol/L Critically low 136-145 [facility] Comment on above: Performed By: #### L IPA, CMP #### [facility] Laboratory [address] [place] [address] Dr. Adrianna Caldera Urea nitrogen [Mass/Vol] 9.0 mg/dL Normal 7.0-18.0 [facility] Comment on above: Performed By: #### L IPA, CMP #### [facility] [address] [place] [address] Dr. Adrianna Caldera Urea nitrogen/Creatinine [Mass ratio] 14.8 mg/mg Normal [facility] Comment on above: Performed By: #### L IPA, CMP #### [facility] [address] [place] [address] Dr. Adrianna Caldera No Panel Informationon 05-17 Body mass index (BMI) [Percentile] Per age and sex 0.1 {percentile} Invalid Interpretation Code [employer] [id number] Per age and sex 0.1 {percentile} Invalid Interpretation Code Shannon [employer] US PREG TVon 05-01-2022 US PREG TV [...] by: KAROL SIDDIQUI Date: 2022-04-30 22:06 Normal [facility] US PREG TVon 04-08-2022 US PREG [...] by: KAROL SIDDIQUI Date: 2022-04-08 17:08 Normal [facility] US PELVIS TRANSVAGon 022 US PELVIS TRANSVAG EXAM: US PELVIS TRANSVAG CLINICAL HISTORY: Left-sided pelvic pain and nausea. [...] by: CINDY NOGUEIRA Date: 2022-03-22 22:47 Normal [facility] CBC AUTO DIFFon 03-22-2022 BASO # 0.1 103/ul Normal 0.0-0.1 [facility] Comment on above: Performed By: #### U ACSIND #### [facility] Laboratory [address] [address] [address] Adrianna Caldera Basophils/100 WBC (Bld) 0.5 % Normal 0.2-2.0 [facility] Comment on above: Performed By: #### U ACSIND #### [facility] [address] [address] [address] Adrianna Caldera EO # 0.1 103/ul Normal 0.0-0.7 [facility] Comment on above: Performed By: #### U ACSIND #### [facility] [address] [address] [address] Adrianna Caldera Eosinophils/100 WBC (Bld) 0.6 % Critically low 0.9-7.0 [facility] Comment on above: Performed By: #### U ACSIND #### [facility] [address] [address] [address] Adrianna Caldera Erythrocyte distribution width (RBC) [Ratio] 12.6 % Normal 11.0-15.0 [facility] Comment on above: Performed By: #### U ACSIND #### [facility] [address] [address] [address] Adrianna Caldera Hematocrit (Bld) [Volume fraction] 40.0 % Normal 36.0-48.0 [facility] Comment on above: Performed By: #### U ACSIND #### [facility] [address] [address] [address] Adrianna Caldera Hemoglobin (Bld) [Mass/Vol] 13.6 g/dL Normal 12.0-16.0 [facility] Comment on above: Performed By: #### U ACSIND #### [facility] [address] [address] [address] Adrianna Caldera IG # 0.03 10e3/ul Normal 0.00-0.03 [facility] Comment on above: Performed By: #### U ACSIND #### [facility] [address] [address] [address] Adrianna Caldera IG % 0.3 % Normal 0.0-0.5 [facility] Comment on above: Performed By: #### U ACSIND #### [facility] [address] [place] [address] Dr. Adrianna Caldera LYMPH # 4.4 103/ul Critically high 1.2-3.8 [facility] Comment on above: Performed By: #### U ACSIND #### [facility] [address] [place] [address] Dr. Adrianna Caldera Lymphocytes/100 WBC (Bld) 38.4 % Normal 20.5-60.0 [facility] Comment on above: Performed By: #### U ACSIND #### [facility] [address] [place] [address] Dr. Adrianna Caldera MANUAL DIFF REQ NO Normal [facility] Comment on above: Performed By: #### U ACSIND #### [facility] [address] [address] [address] Adrianna Caldera MCH (RBC) [Entitic mass] 30.2 pg Normal 26.7-34.0 [facility] Comment on above: Performed By: #### U ACSIND #### [facility] [address] [address] [address] Adrianna Caldera MCHC (RBC) [Mass/Vol] 34.0 g/dL Normal 29.9-35.2 [facility] Comment on above: Performed By: #### U ACSIND #### [facility] [address] [place] [address] Dr. Adrianna Caldera MCV (RBC) [Entitic vol] 88.9 fL Normal 81.0-99.0 [facility] Comment on above: Performed By: #### U ACSIND #### [facility] Laboratory [address] [place] [address] Dr. Adrianna Caldera MONO # 0.7 103/ul Normal 0.3-0.8 [facility] Comment on above: Performed By: #### U ACSIND #### [facility] [address] [place] [address] Dr. Adrianna Caldera Monocytes/100 WBC (Bld) 6.2 % Normal 1.7-12.0 [facility] Comment on above: Performed By: #### U ACSIND #### [facility] [address] [place] [address] Dr. Adrianna Caldera NEUT # 6.1 103/ul Normal 1.4-6.5 [facility] Comment on above: Performed By: #### U ACSIND #### [facility] [address] [place] [address] Dr. Adrianna Caldera Neutrophils/100 WBC (Bld) 54.0 % Normal 43.0-75.0 [facility] Comment on above: Performed By: #### U ACSIND #### [facility] [address] [place] [address] Dr. Adrianna Caldera Platelet mean volume (Bld) [Entitic vol] 10.9 fL Normal 9.5-13.5 [facility] Comment on above: Performed By: #### U ACSIND #### [facility] [address] [place] [address] Dr. Adrianna Caldera PLT 277 103/ul Normal 150-450 [facility] Comment on above: Performed By: #### U ACSIND #### [facility] [address] [place] [address] Dr. Adrianna Caldera RBC 4.50 106/ul Normal 4.20-5.40 [facility] Comment on above: Performed By: #### U ACSIND #### [facility] [address] [place] [address] Dr. Adrianna Caldera WBC 11.3 103/ul Critically high 4.0-11.0 [facility] Comment on above: Performed By: #### U ACSIND #### [facility] [address] [address] [address] Adrianna Caldera ER URINE PROFILEon 2 Bilirubin Ql (U) Negative Normal NEGATIVE [facility] Comment on above: Performed By: #### P REGU, ERUR ####[facility] [address] [place], [place] [address]Dr. Adrianna Caldera Clarity (U) CLEAR Normal CLEAR [facility] Comment on above: Performed By: #### P REGU, ERUR ####[facility] [address] [place], [place] [address]Dr. Adrianna Caldera Color (U) LT. YELLOW Normal YELLOW [facility] Comment on above: Performed By: #### P REGU, ERUR ####[facility] [address] [place], [place] [address]Dr. Adrianna GOLDBERGAHD A micrscopic examination will be performed if indicated. Normal [facility] Comment on above: Performed By: #### P REGU, ERUR ####[facility] [address] [place], [place] [address]Dr. Adrianna Caldera Glucose Ql (U) Negative Normal NEGATIVE [facility] [place] Comment on above: Performed By: #### P REGU, ERUR ####[facility] [address] [place], [place] [address]Dr. Adrianna Caldera Hemoglobin Ql (U) Negative Normal NEGATIVE [facility] Comment on above: Performed By: #### P REGU, ERUR ####[facility] [address] [place], [place] [address]Dr. Adrianna Caldera Ketones Ql (U) Negative Normal NEGATIVE [facility] [place] Comment on above: Performed By: #### P REGU, ERUR ####[facility] [address] [place], [place] [address]Dr. Adrianna Caldera LEUKOCYTES Negative Normal NEGATIVE [facility] Comment on above: Performed By: #### P REGU, ERUR ####[facility] [address] [address]Dr. Adrianna Caldera Nitrite Ql (U) Negative Normal NEGATIVE [facility] Comment on above: Performed By: #### P REGU, ERUR ####[facility] [address] [id number] Adrianna Caldera pH (U) 6.0 [pH] Normal 5-9 [facility] Comment on above: Performed By: #### P BASSEMU, ERUR ####[facility] [address] [address]Dr. Adrianna Caldera SPEC GRAVITY <=1.005 Abnormal 1.005-<=1.0 25 [facility] Comment on above: Performed By: #### P BASSEMU, ERUR ####[facility] [address] [address]Dr. Adrianna Caldera UA PROTEIN Negative Normal NEGATIVE/ TRACE [facility] Comment on above: Performed By: #### P BASSEMU, ERUR ####[facility] [address] [address]Dr. Adrianna Caldera UR MICRO IND NOT INDICATED Normal [facility] Comment on above: Performed By: #### P BASSEMU, ERUR ####[facility] [address] [address]Dr. Adrianna Caldera Urobilinogen Qn (U) 0.2 {Micheal'U}/dL Normal 0.2 - 1. 0 [facility] Comment on above: Performed By: #### P REGU, ERUR ####[facility] [address] [address]Dr. Adrianna Caldera PREG QUANT HCGon 03-22-2022 HCG QUANT 2 mIU/mL Normal [facility] Comment on above: Performed By: #### P REGQNT #### [facility] Laboratory [address] [address] [address] Adrianna Caldera HCG RANGE SEE BELOW Normal [facility] [facility] Comment on above: Result Comment: 5-50 0.2-1 WEEK 50-500 1-2 WEEKS 100-5,000 2-3 WEEKS 500-10,000 3-4 WEEKS 1,000-50,000 4-5 WEEKS 10,000-100,000 5-6 WEEKS 15,000-200,000 6-8 WEEKS 10,000-100,000 2-3 MONTHS Performed By: #### P REGQNT #### [facility] [address] [address] [address] Adrianna Caldera URon 03-22-2022 , QUAL Negative Normal NEGATIVE [facility] Comment on above: Performed By: #### P REGU, ERUR ####[facility] [address] [place], [place] [address]CuDr. Adrianna Caldera PROF CHEM 8 (BAS METB)on Anion gap [Moles/Vol] 10.9 mmol/L Normal [facility] Comment on above: Performed By: #### U ACSIND #### [facility] [address] [address] [address] Adrianna Caldera Calcium [Mass/Vol] 9.1 mg/dL Normal 8.5-10.1 [facility] Comment on above: Performed By: #### U ACSIND #### [facility] [address] [address] [address] Adrianna Caldera Chloride [Moles/Vol] 105 mmol/L Normal 98-107 [facility] Comment on above: Performed By: #### U ACSIND #### [facility] [address] [address] [address] Adrianna Caldera CO2 [Moles/Vol] 26.0 mmol/L Normal 21.0-32.0 [facility] Comment on above: Performed By: #### U ACSIND #### [facility] [address] [address] [address] Adrianna Caldera Creatinine [Mass/Vol] 0.98 mg/dL Normal 0.55-1.02 [facility] Comment on above: Performed By: #### U ACSIND #### [facility] [address] [address] [address] Adrianna Caldera EGFR-AF ECUADOREAN >60 Normal >=60 [facility] Comment on above: Performed By: #### U ACSIND #### [facility] [address] [address] [address] Adrianna Caldera EGFR-NON AF ECUADOREAN >60 Normal >=60 [facility] Comment on above: Performed By: #### U ACSIND #### [facility] [address] [address] [address] Adrianna Caldera Glucose [Mass/Vol] 87 mg/dL Normal 74-106 [facility] Comment on above: Performed By: #### U ACSIND #### [facility] [address] [address] [address] Adrianna Caldera Potassium [Moles/Vol] 3.9 mmol/L Normal 3.5-5.1 [facility] Comment on above: Performed By: #### U ACSIND #### [facility] [address] [address] [address] Adrianna Caldera Sodium [Moles/Vol] 138 mmol/L Normal 136-145 [facility] Comment on above: Performed By: #### U ACSIND #### [facility] [address] [address] [address] Adrianna Caldera Urea nitrogen [Mass/Vol] 11.0 mg/dL Normal 7.0-18.0 [facility] Comment on above: Performed By: #### U ACSIND #### [facility] [address] [address] [address] Adrianna Caldera Urea nitrogen/Creatinine [Mass ratio] 11.2 mg/mg Normal [facility] Comment on above: Performed By: #### U ACSIND #### [facility] [address] [address] [address] Adrianna Caldera PREG QUANT HCGon 03-03-2022 HCG QUANT 1 mIU/mL Normal [facility] Comment on above: Performed By: #### P REGQNT #### [facility] [address] [address] [address] Adrianna Caldera HCG RANGE SEE BELOW Normal [facility] Comment on above: Result Comment: 5-50 0.2-1 WEEK 50-500 1-2 WEEKS 100-5,000 2-3 WEEKS 500-10,000 3-4 WEEKS 1,000-50,000 4-5 WEEKS 10,000-100,000 5-6 WEEKS 15,000-200,000 6-8 WEEKS 10,000-100,000 2-3 MONTHS Performed By: #### P REGQNT #### [facility] [address] [address] [address] Adrianna Caldera Creatinine and Glomerular fi ltration rate.predicted panel (S/P/Bld)Ordered By: Tae Natarajan on 02-10-2022 Creatinine [Mass/Vol] 1.03 mg/dL 0.44-1.03 [facility] Estimated glomerular filtrat ion rate (GFR) non- AmericanOrdered By: Tae Natarajan on 02-10-2022 GFR/1.73 sq M.predicted among non-blacks MDRD (S/P/Bld) [Vol rate/Area] > 60 mL/Min [facility] HCG ( test) IA.rapi d Ql (U)Ordered By: Tae Natarajan on 02-10-2022 HCG ( test) Ql (U) Negative [facility] No Panel InformationOrdered By: Tae Natarajan on 02-10-2022 Estimated GFR () > 60 mL/Min [facility] Comment on above: GFR estimated refere nce range: According to KDOQI guidelines, <60 ml/min/1.73m2 is sufficient to diagnose a patient with chronic kidney disease. Pharmacy Creatinine Clearance (Chem 88.89 [facility] Serum or plasma urea nitroge n measurement (mass/volume)Ordered By: Tae Natarajan on 02-10-2022 Urea nitrogen [Mass/Vol] 9 mg/dL 9 [facility] PREG QUANT HCGon 12-04-2021 HCG QUANT <1 Normal [facility] Comment on above: Performed By: #### P REGQNT #### [facility] [address] [address] [address] Adrianna Caldera HCG RANGE SEE BELOW Normal [facility] Comment on above: Result Comment: 5-50 0-1 WEEK 40-300 1-2 WEEKS 100-1,000 2-3 WEEKS 500-6,000 3-4 WEEKS 5,000-200,000 1-2 MONTHS 10,000-100,000 2-3 MONTHS 3,000-50,000 2ND TRIMESTER 1,000-50,000 3RD TRIMESTER Performed By: #### P REGQNT #### [facility] [address] [place], [place] [address] Dr. Adrianna Caldera CBC AUTO DIFFon 11-14-2021 BASO # 0.1 103/ul Normal 0.0-0.1 [facility] Comment on above: Performed By: #### C BC ####[facility] [address] [id number]. Adrianna Caldera Basophils/100 WBC (Bld) 0.5 % Normal 0.2-2.0 [facility] Comment on above: Performed By: #### C BC ####[facility] [address] [address]Dr. Adrianna Caldera EO # 0.1 103/ul Normal 0.0-0.7 [facility] Comment on above: Performed By: #### C BC ####[facility] [address] [id number]. Adrianna Caldera Eosinophils/100 WBC (Bld) 0.8 % Critically low 0.9-7.0 [facility] Comment on above: Performed By: #### C BC ####[facility] [address] [id number]. Adrianna Caldera Erythrocyte distribution width (RBC) [Ratio] 13.0 % Normal 11.0-15.0 [facility] Comment on above: Performed By: #### C BC ####[facility] [address] [id number]. Adrianna Caldera Hematocrit (Bld) [Volume fraction] 38.5 % Normal 36.0-48.0 [facility] Comment on above: Performed By: #### C BC ####[facility] [address] [address]DrAung Caldera Hemoglobin (Bld) [Mass/Vol] 12.9 g/dL Normal 12.0-16.0 [facility] Comment on above: Performed By: #### C BC ####[facility] [address] [address]DrAung Caldera IG # 0.03 10e3/ul Normal 0.00-0.03 [facility] Comment on above: Performed By: #### C BC ####[facility] [address] [address]Dr. Adrianna Caldera IG % 0.3 % Normal 0.0-0.5 [facility] Comment on above: Performed By: #### C BC ####[facility] [address] [place], [place] [address]DrAung Caldera LYMPH # 2.8 103/ul Normal 1.2-3.8 [facility] Comment on above: Performed By: #### C BC ####[facility] [address] [place], [place] [address]DrAung Caldera Lymphocytes/100 WBC (Bld) 27.4 % Normal 20.5-60.0 [facility] Comment on above: Performed By: #### C BC ####[facility] [address] [address]DrAung Caldera MANUAL DIFF REQ NO Normal [facility] Comment on above: Performed By: #### C BC ####[facility] [address] [address]Dr. Adrianna Caldera MCH (RBC) [Entitic mass] 29.7 pg Normal 26.7-34.0 [facility] Comment on above: Performed By: #### C BC ####[facility] [address] [place], [place] [address]DrAung Caldera MCHC (RBC) [Mass/Vol] 33.5 g/dL Normal 29.9-35.2 [facility] Comment on above: Performed By: #### C BC ####[facility] [address] [address]DrAung Caldera MCV (RBC) [Entitic vol] 88.7 fL Normal 81.0-99.0 [facility] Comment on above: Performed By: #### C BC ####[facility] [address] [address]Dr. Adrianna Caldera MONO # 0.7 103/ul Normal 0.3-0.8 [facility] Comment on above: Performed By: #### C BC ####[facility] [address] [id number]. Adrianna Caldera Monocytes/100 WBC (Bld) 6.5 % Normal 1.7-12.0 [facility] Comment on above: Performed By: #### C BC ####[facility] [address] [address]Dr. Adrianna Caldera NEUT # 6.5 103/ul Normal 1.4-6.5 [facility] Comment on above: Performed By: #### C BC ####[facility] [address] [place], [place] [address]Dr. Adrianna Caldera Neutrophils/100 WBC (Bld) 64.5 % Normal 43.0-75.0 [facility] Comment on above: Performed By: #### C BC ####[facility] [address] [place], [place] [address]Dr. Adrianna Caldera Platelet mean volume (Bld) [Entitic vol] 10.4 fL Normal 9.5-13.5 [facility] Comment on above: Performed By: #### C BC ####[facility] [address] [address]Dr. Adrianna Caldera PLT 324 103/ul Normal 150-450 [facility] Comment on above: Performed By: #### C BC ####[facility] [address] [id number]. Adrianna Caldera RBC 4.34 106/ul Normal 4.20-5.40 [facility] Comment on above: Performed By: #### C BC ####[facility] [address] [address]Dr. Adrianna Caldera WBC 10.1 103/ul Normal 4.0-11.0 [facility] Comment on above: Performed By: #### C BC ####[facility] [address] [address]Dr. Adrianna Caldera ER URINE PROFILEon 2 Bilirubin Ql (U) Negative Normal NEGATIVE [facility] Comment on above: Performed By: #### E RUR, PREGU, UMICRO ####[facility] [address] [address]Dr. Adrianna Caldera Clarity (U) CLEAR Normal CLEAR [facility] Comment on above: Performed By: #### E RUR, PREGU, UMICRO ####[facility] [address] [address]Dr. Adrianna Caldera Color (U) LT. YELLOW Normal YELLOW [facility] Comment on above: Performed By: #### E RUR, PREGU, UMICRO ####[facility] [address] [place], [place] [address]Dr. Adrianna Caldera ERUAHD A micrscopic examination will be performed if indicated. Normal [facility] Comment on above: Performed By: #### E RUR, PREGU, UMICRO ####[facility] [address] [place], [place] [address]Dr. Adrianna Caldera Glucose Ql (U) Negative Normal NEGATIVE The [place] Comment on above: Performed By: #### E RUR, PREGU, UMICRO ####[facility] [address] [place], [place] [address]Dr. Jemimabenito Werner Hemoglobin Ql (U) LARGE Abnormal NEGATIVE [facility] Comment on above: Performed By: #### E RUR, PREGU, UMICRO ####[facility] [address] [address]Dr. Adrianna Caldera Ketones Ql (U) Negative Normal NEGATIVE The [place] Comment on above: Performed By: #### E RUR, PREGU, UMICRO ####[facility] [address] [address]Dr. Adrianna Caldera LEUKOCYTES Negative Normal NEGATIVE [facility] Comment on above: Performed By: #### E RUR, PREGU, UMICRO ####[facility] [address] [address]Dr. Adrianna Caldera Nitrite Ql (U) Negative Normal NEGATIVE The [place] Comment on above: Performed By: #### E RUR, PREGU, UMICRO ####[facility] [address] [address]Dr. Adrianna Caldera pH (U) 6.5 [pH] Normal 5-9 [facility] Comment on above: Performed By: #### E RUR, PREGU, UMICRO ####[facility] [address] [address]Dr. Adrianna Caldera SPEC GRAVITY 1.015 Normal 1.005-<=1.0 25 [facility] Comment on above: Performed By: #### E RUR, PREGU, UMICRO ####[facility] [address] [address]Dr. Adrianna Caldera UA PROTEIN Negative Normal NEGATIVE/ TRACE [facility] Comment on above: Performed By: #### Rojelio RUR, PREGU, UMICRO ####[facility] [address] [place], [place] [address]Dr. Adrianna Caldera UR MICRO IND INDICATED Normal [facility] Comment on above: Performed By: #### E RUR, PREGU, UMICRO ####[facility] [address] [address]Dr. Adrianna Caldera Urobilinogen Qn (U) 0.2 {Micheal'U}/dL Normal 0.2 - 1. 0 [facility] Comment on above: Performed By: #### E RUR, PREGU, UMICRO ####[facility] [address] [address]Dr. Adrianan Caldera URon 11-14-2021 , QUAL Negative Normal NEGATIVE [facility] Comment on above: Performed By: #### E RUR, PREGU, UMICRO ####[facility] [address] [address]Dr. Adrianna Caldera PROF CHEM 8 (BAS METB)on Anion gap [Moles/Vol] 13.5 mmol/L Normal [facility] Comment on above: Performed By: #### U ACSIND #### [facility] [address] [address] [address] Adrianna Caldera Calcium [Mass/Vol] 8.7 mg/dL Normal 8.5-10.1 [facility] Comment on above: Performed By: #### U ACSIND #### [facility] [address] [address] [address] Adrianna Caldera Chloride [Moles/Vol] 102 mmol/L Normal 98-107 [facility] Comment on above: Performed By: #### U ACSIND #### [facility] [address] [address] [address] Adrianna Caldera CO2 [Moles/Vol] 27.3 mmol/L Normal 21.0-32.0 [facility] Comment on above: Performed By: #### U ACSIND #### [facility] [address] [address] [address] Adrianna Caldera Creatinine [Mass/Vol] 0.85 mg/dL Normal 0.55-1.02 [facility] Comment on above: Performed By: #### U ACSIND #### [facility] [address] [place] [address] Dr. Adrianna Caldera EGFR-AF ECUADOREAN >60 Normal >=60 [facility] Comment on above: Performed By: #### U ACSIND #### [facility] [address] [address] [address] Adrianna Caldera EGFR-NON AF ECUADOREAN >60 Normal >=60 [facility] Comment on above: Performed By: #### U ACSIND #### [facility] [address] [address] [address] Adrianna Caldera Glucose [Mass/Vol] 104 mg/dL Normal 74-106 [facility] Comment on above: Performed By: #### U ACSIND #### [facility] [address] [address] [address] Adrianna Caldera Potassium [Moles/Vol] 3.8 mmol/L Normal 3.5-5.1 [facility] Comment on above: Performed By: #### U ACSIND #### [facility] [address] [address] [address] Adrianna Caldera Sodium [Moles/Vol] 139 mmol/L Normal 136-145 [facility] Comment on above: Performed By: #### U ACSIND #### [facility] [address] [address] [address] Adrianna Caldera Urea nitrogen [Mass/Vol] 8.0 mg/dL Normal 7.0-18.0 [facility] Comment on above: Performed By: #### U ACSIND #### [facility] [address] [address] [address] Adrianna Caldera Urea nitrogen/Creatinine [Mass ratio] 9.4 mg/mg Normal [facility] Comment on above: Performed By: #### U ACSIND #### [facility] [address] [address] [address] Adrianna Caldera URINE MICROSCOPIC ONLYon BACTERIA NONE SEEN Normal NONE SEEN [facility] Comment on above: Performed By: #### Rojelio RUHECTOR GhoshU UMICRO ####[facility] [address] [address]DrAung Caldera Bacteria identified Cx Nom (U) NOT INDICATED Normal [facility] Comment on above: Performed By: #### E RUR PREGU, UMICRO ####[facility] [address] [address]DrAung Caldera CAST NONE SEEN Normal NONE SEEN [facility] Comment on above: Performed By: #### E RUR, PREGU, UMICRO ####[facility] [address] [id number] Caldera Crystals LM Nom (Urine sed) NONE SEEN Normal NONE SEEN [facility] Comment on above: Performed By: #### E RUR, PREGU, UMICRO ####[facility] [address] [id number] Caldera Epithelial cells LM Ql (Urine sed) RARE Normal NONE SEEN /RARE [facility] Comment on above: Performed By: #### E RUR, PREGU, UMICRO ####[facility] [address] [place], [place] [address]Gx. Adrianna Caldera MUCOUS NONE SEEN Normal NONE SEEN [facility] Comment on above: Performed By: #### E RUR, PREGU, UMICRO ####[facility] [address] [place], [place] [address]Cq. Adrianna Caldera RBC 10-20 Abnormal 0-2 [facility] Comment on above: Performed By: #### E RUR, PREGU, UMICRO ####[facility] [address] [place], [place] [address]Xn. Adrianna Caldera WBC 0-2 Abnormal NONE SEEN [facility] Comment on above: Performed By: #### E RUR, PREGU, UMICRO ####[facility] [address] [place], [place] [address]Oj. Adrianna Caldera HCG, Quantitative, on 10-12-2021 hCG Quant <1 <5 mIU/mL [facility] Comment on above: Non-preg premeno <=5 Postmeno <=8 Male <=3 If HCG results do not concur with clinical observations, additional testing to confirm results is recommended. Elevated results not associated with may be found in patients with other diseases such as tumors of the germ cells (testis, ovaries, etc.), bladder, pancreas, stomach, lungs, and liver. [facility] CBC with Auto Differentialon 10-11-2021 Absolute Eos # 0.08 [facility] th Absolute Immature Granulocyte <0.03 [facility] Absolute Lymph # 1.85 [facility] alth Absolute [place] # 0.56 [facility] lt Basophils (Bld) [#/Vol] 0.04 10*3/uL [facility] Basophils/100 WBC (Bld) 1 % 0 - 2 % [facility] Eosinophils/100 WBC (Bld) 1 % 1 - 4 % [facility] Hematocrit (Bld) [Volume fraction] 38.9 % 36.3 - 47.1 % [facility] Hemoglobin.gastrointest inal spec 1 Ql (Stl) 12.7 g/dL 11.9 - 15.1 g/dL [facility] Immature granulocytes/100 WBC (Bld) 0 % 0 [facility] Lymphocytes/100 WBC (Bld) 29 % 24 - 43 % [facility] MCH (RBC) [Entitic mass] 29.7 pg 25.2 - 33.5 pg [facility] MCHC (RBC) [Mass/Vol] 32.6 g/dL 28.4 - 34.8 g/dL [facility] MCV (RBC) [Entitic vol] 90.9 fL 82.6 - 102.9 fL [facility] Monocytes/100 WBC (Bld) 9 % 3 - 12 % [facility] NRBC Automated 0.0 0.0 per 100 WBC [facility] Platelet distribution width (Bld) [Ratio] 12.9 % 11.8 - 14.4 % [facility] Platelet mean volume (Bld) [Entitic vol] 10.3 fL 8.1 - 13.5 fL [facility] Platelets (Bld) [#/Vol] 351 10*3/uL [facility] RBC (Bld) [#/Vol] 4.28 10*6/uL 3.95 - 5.1 1 m/uL [facility] Segmented neutrophils/100 WBC (Bld) 60 % 36 - 65 % [facility] Segs [facility]Bld[facility] [#/Vol] 6.5 10*3/uL [facility] [place] CT ABDOMEN PELVIS W IV CONTR AST Additional Contrast? Noneon 10-11-2021 Negative acute inflammatory process or bowel obstruction. [facility] RIS CONSOLIDATED EXAMINATION: CT OF THE ABDOMEN AND PELVIS [...] No hydronephrosis. Gallbladder is not remarkable. GI/Bowel: Hkzs-nt-lqgnwcli retained stool without bowel obstruction. No pericecal inflammatory changes. Appendix unremarkable. Pelvis: There is mild prominence endometrial canal 7 mm. This may related to phase of menstrual cycle. Please correlate exam findings and history. No suspicious adnexal mass. Bladder remarkable. Peritoneum/Retroperi toneum: Trace free fluid dependent pelvis. No free air. No suspicious adenopathy. Bones/Soft Tissues: No suspicious osseous lesion [facility] RIS [facility] Ashutosh Omalley MD - 10/11/2021 EXAMINATION: CT OF THE ABDOMEN AND PELVIS [...] No hydronephrosis. Gallbladder is not remarkable. GI/Bowel: Pzds-pq-txsacegw retained stool without bowel obstruction. No pericecal inflammatory changes. Appendix unremarkable. Pelvis: There is mild prominence endometrial canal 7 mm. This may related to phase of menstrual cycle. Please correlate exam findings and history. No suspicious adnexal mass. Bladder remarkable. Peritoneum/Retroperi toneum: Trace free fluid dependent pelvis. No free air. No suspicious adenopathy. Bones/Soft Tissues: No suspicious osseous lesion IMPRESSION: Negative acute inflammatory process or bowel obstruction. [employer] Work Phone: Radiology Study observation (narrative) [employer] Work Phone: CT ABDOMEN PELVIS W IV CONTR AST Additional Contrast? NoneOrdered By: Ashutosh Omalley on 10-11-2021 [employer] Work Phone: Comprehensive Metabolic Pane l w/ Reflex to MGon 10-11-2021 Albumin [Mass/Vol] 4.3 g/dL 3.5 - 5.2 g/dL [facility] Albumin/Globulin [Mass ratio] 1.7 {ratio} [facility] ALP (Bld) [Catalytic activity/Vol] 73 U/L 35 - 104 U/L [facility] ALT [Catalytic activity/Vol] 21 U/L 5 - 33 U/L [facility] Anion gap [Moles/Vol] 7 mmol/L Low 9 - 17 mmol/L [facility] AST [Catalytic activity/Vol] 15 U/L <32 [facility] Bilirubin [Mass/Vol] 0.25 mg/dL Low 0.3 - 1 .2 mg/dL [facility] Calcium [Mass/Vol] 9.1 mg/dL 8.6 - 10. 4 mg/dL [facility] Chloride [Moles/Vol] 105 mmol/L 98 - 10 7 mmol/L [facility] CO2 [Moles/Vol] 26 mmol/L 20 - 31 mmol/L [facility] Creatinine [Mass/Vol] 0.75 mg/dL 0.50 - 0.90 mg/dL [facility] Free PSA/Total PSA [Mass fraction] 6.8 g/dL 6.4 - 8.3 g/dL [facility] GFR >60 >60 mL/min [facility] GFR Non- >60 >60 mL/min [facility] Glucose [Mass/Vol] 116 mg/dL High 70 - 99 mg/dL [facility] Interpretation and review of laboratory results Abnormal [facility] Potassium [Moles/Vol] 3.9 mmol/L 3.7 - 5.3 mmol/L [facility] Sodium [Moles/Vol] 138 mmol/L 135 - 144 mmol/L [facility] Urea nitrogen (BldV) [Mass/Vol] 9 mg/dL 6 - 20 mg/dL [facility] Urea nitrogen/Creatinine (Bld) [Mass ratio] 12 [facility] Laboratory - Chemistry and C hemistry - challengeon 10-11-2021 GFR/1.73 sq M.predicted MDRD (S/P/Bld) [Vol rate/Area] [facility] Comment on above: Average GFR for 20-2 9 years old: 116 mL/min/1.73sq m Chronic Kidney Disease: <60 mL/min/1.73sq m Kidney failure: <15 mL/min/1.73sq m eGFR calculated using average adult body mass. Additional eGFR calculator available at: http://www.[employer]/multiple_crcl_2012.htm Stage 1: Some kidney damage normal GFR Stage 2: Mild kidney damage GFR 60-89 Stage 3: Moderate kidney damage GFR 30-59 Stage 4: Severe kidney damage GFR 15-29 Stage 5: Severe kidney damage GFR <15 ESRD - chronic treatment by dialysis or transplant Lipaseon 10-11-2021 Lipase [Catalytic activity/Vol] 39 U/L 13 - 60 U/L [facility] Microscopic Urinalysison - [facility] Bacteria, UA TRACE Abnormal None [employer] Crystals, UA 2 TO 5 CALCIUM OXALATE Abnormal None /HPF [facility] Epithelial Cells UA 2 TO 5 [facility] Interpretation and review of laboratory results Abnormal [employer] RBC, UA 2 TO 5 [employer] WBC, UA 0 TO 2 [facility] [employer] No Panel Informationon 10-11 [facility] , Urineon Beta HCG ( test) Ql (U) Negative NEGATIVE [employer] Comment on above: Specimens with hCG l evels near the threshold of the test (25 mIU/mL) may give a negative or indeterminate result. In such cases, another test should be performed with a new specimen in 48-72 hours. If early is suspected clinically in this setting, correlation with quantitative serum b-hCG level is suggested. [employer]box has confirmed the use of plasma for this test. This has not been cleared or approved by the U.S. Food and Drug Administration. The FDA has determined that such clearance is not necessary. [facility] Urinalysis with Reflex to Cu ltureon 10-11-2021 Bilirubin Urine Negative NEGATIVE [facility] a lth Color, UA Yellow Yellow [facility] Glucose, Ur Negative NEGATIVE [employer] Interpretation and review of laboratory results Abnormal [facility] Ketones Ql (U) Negative NEGATIVE [facility] Leukocyte esterase Test strip Ql (U) Negative NEGATIVE [employer] Nitrite, Urine Negative NEGATIVE [facility] pH, UA 6.0 [facility] Protein, UA Negative NEGATIVE [employer] Specific [place], UA >1.030 High eEvent [facility] Turbidity UA Clear Clear [facility] Urine Hgb TRACE Abnormal NEGATIVE [employer] Urobilinogen, Urine Normal Normal [facility] PREG QUANT HCGon 10-09-2021 HCG QUANT <1 Normal [facility] Comment on above: Performed By: #### P REGQNT ####[facility] [id number] [place], [place] [address]Hi. Adrianna Caldera HCG RANGE SEE BELOW Normal [facility] Comment on above: Result Comment: 5-50 0-1 WEEK 40-300 1-2 WEEKS 100-1,000 2-3 WEEKS 500-6,000 3-4 WEEKS 5,000-200,000 1-2 MONTHS 10,000-100,000 2-3 MONTHS 3,000-50,000 2ND TRIMESTER 1,000-50,000 3RD TRIMESTER Performed By: #### P REGQNT ####[facility] [id number] [place], [place] [address]Tf. Adrianna Caldera CULTURE, URINE, ROUTINEon CULTURE, URINE, ROUTINE SEE NOTE Abnormal [facility] Comment on above: Result Comment: CULTURE, URINE, ROUTINE Micro Number: [id number] Test Status: Final Specimen Source: Urine Specimen [...] By: #### 3 95 #### [facility] [address], [address] [place] [address] Home Health Travel Pt: Javid Broussard MD XR CHEST PORTABLEon 03-16-20 20 No acute process. [facility] [place] EXAMINATION: ONE XRAY VIEW OF THE CHEST 03/16/2020 3:33 pm COMPARISON: 07/13/2014 HISTORY: ORDERING SYSTEM PROVIDED HISTORY: cough, dyspnea TECHNOLOGIST PROVIDED HISTORY: cough, dyspnea FINDINGS: The lungs are without acute focal process. There is no effusion or pneumothorax. The cardiomediastinal silhouette is without acute process. The osseous structures are without acute process. [facility] [place] James, Mhpn Incoming Radiant Results From [employer] - 03/16/2020 3:43 PM EDT EXAMINATION: ONE XRAY VIEW OF THE CHEST 03/16/2020 3:33 pm COMPARISON: 07/13/2014 HISTORY: ORDERING SYSTEM PROVIDED HISTORY: cough, dyspnea TECHNOLOGIST PROVIDED HISTORY: cough, dyspnea FINDINGS: The lungs are without acute focal process. There is no effusion or pneumothorax. The cardiomediastinal silhouette is without acute process. The osseous structures are without acute process. IMPRESSION: No acute process. [facility] Microscopico n 03-03-2020 Amorphous, UA 1+ Abnormal None [facility] Bacteria, UA NOT REPORTED None [place], [place] Bilirubin Urine Negative NEGATIVE [place] Casts UA NOT REPORTED /LPF [place], [place] Color, UA YELLO YELLOW [place] Crystals, UA NOT REPORTED None /HPF [place], [place] Epithelial Cells UA None [place] Glucose, Ur Negative NEGATIVE [place] Interpretation and review of laboratory results Abnormal [place] Ketones Ql (U) Negative NEGATIVE [place] Leukocyte esterase Test strip Ql (U) Negative NEGATIVE [place] Mucus, UA NOT REPORTED None [place], [place] Nitrite, Urine Negative NEGATIVE [place] Other Observations UA NOT REPORTED NOT REQ. [place] pH, UA 6.0 [place] Protein (U) [Mass/Vol] Negative NEGATIVE [place], [place] RBC (U) [#/Vol] None [place] Renal Epithelial, UA NOT REPORTED 0 /HPF Me [place], [place] Specific [place], UA >1.030 High [place], [place] Trichomonas, UA NOT REPORTED None [place], [place] Turbidity UA CLOUDY Abnormal CLEAR [place] Urinalysis Comments NOT REPORTED [place] Urine Hgb TRACE Abnormal NEGATIVE [place] Urobilinogen, Urine Normal Normal [place] WBC, UA 0 TO 2 [place] Yeast, UA NOT REPORTED None [place] HEPATOBILIARY SCAN W EJEC TION FRACTIONon 10-12-2019 Cholesterol [Mass/Vol] No convincing scintigraphic evidence of acute or chronic cholecystitis. [place] EXAMINATION: NUCLEAR MEDICINE HEPATOBILIARY SCINTIGRAPHY (HIDA [...] 30-60 mins. Images were obtained in the DJIBOUTIAN projection and regions of interest were drawn [...] range is based on a limited study. [facility] [place] James, [facility] Incoming Radiant Results From [employer] - 10/12/2019 2:56 PM EDT EXAMINATION: NUCLEAR [...] 30-60 mins. Images were obtained in the DJIBOUTIAN projection and regions of interest were drawn [...] scintigraphic evidence of acute or chronic cholecystitis. [facility], [place] HEPATOBILIARY SCAN W PHAR MACOLOGICAL INTERVENTIONon [...] 30-60 mins. Images were obtained in the DJIBOUTIAN projection and regions of interest were drawn [...] Niraj Covarrubias MD 10/12/19 Final result Normal [facility] H. pylori urease IDon 2019 H. pylori urease ID Specimen Description .TISSUE, ST[place] [id number] EXP 04/05/20 Direct Exam NEGATIVE Report Status FINAL 10/06/2019 Normal [facility] Comment on above: Performed By: #### H JOELLE #### [facility] [address] [place] [address] [employer] Supervisor: Varun Vicente MD [facility] [employer] [address] [place] [address] [employer] Supervisor: Omar Segundo MD OPERATIVE REPORTon 0 OPERATIVE REPORT [address] [phone] OPERATIVE REPORT PATIENT NAME: LULÚ GAITAN : 1995 MED REC NO: [id number] ROOM: ACCOUNT NO: [id number] ADMIT DATE: 10/05/2019 PROVIDER: Toño Blanc Jr DATE OF PROCEDURE: 10/05/2019 PREOPERATIVE DIAGNOSES: Nausea, vomiting, abdominal pain. POSTOPERATIVE DIAGNOSIS: Some mild gastritis. OPERATION PERFORMED: Esophagogastroduoden oscopy. ENDOSCOPIST: Toño Blanc Jr., MD INDICATIONS: A [...] completion in satisfactory condition. TOÑO BLANC JR [id number] Doc#: [id number] CC: Lisseth Blanc Jr Normal [facility] POCT urine pregnancyon 10-04 Beta HCG ( test) Ql (U) Negative NEGATIVE [facility] [place], [place] Comment on above: Specimens with hCG l evels near the threshold of the test (25 mIU/mL) may give a negative or indeterminate result. In such cases, another test should be performed with a new specimen in 48-72 hours. If early is suspected clinically in this setting, correlation with quantitative serum b-hCG level is suggested. [id number] 10-05-2019 SARS-CoV-2 Not Detected Normal Not Detected [facility] Comment on above: Result Comment: (NOT E) The [employer] RealTime SARS-CoV-2 assay is a real-time (rt) reverse transcriptase (RT) polymerase chain reaction (PCR) test intended for the [employer] system. The SARS-CoV-2 primer and probe sets are designed to detect RNA from SARS-CoV-2 in nasopharyngeal (STUDENT DEVELOPMENT COORDINATOR) and oropharyngeal (OP) swabs from patients with [...] The above 1 analytes were performed by [address] [address] Performed By: #### C OVID #### [facility] [address] [place] [address] [employer]astic Sheets Supervisor: Samson Martinez DO [facility] [address] [place] [address] Plastic Sheets Supervisor: Omar Segundo MD [facility] [address] [place] [address] Plastic Sheets Supervisor: Bill Jolly MD Surgical Pathologyon Surgical Pathology (NOTE) -- Diagnosis -- 1. [...] SURGICAL PATHOLOGY CONSULTATION Patient Name: LULÚ GAITAN [facility] Rec: [id number] Path Number: [id number] [facility] CONSULTING PATHOLOGISTS [facility] [address] [place] [phone] [facility] Comment on above: Performed By: #### P PPVS #### [address] [id number] [employer] Supervisor: Omar Segundo MD [id number] 10-03-2019 SARS-CoV-2,Rapid [facility] Comment on above: Performed By: #### C OVID #### [facility] [address] [place], [place] [id number] [employer] Supervisor: Smason Martinez DO [address] [phone] Pl[employer] Supervisor: Omar Segundo MD [facility] [address] [place], [place] [phone] Plastic Sheets Supervisor: Bill Jolly MD SARS-CoV-2 [facility] Comment on above: Performed By: #### C OVID #### [facility] [address] [place] [address] [employer]astic Sheets Supervisor: Samson Martinez DO [facility] [address] [place] [address] Plastic Sheets Supervisor: Omar Segundo MD [facility] [address] [place] [address] [employer]astic Sheets Supervisor: Bill Jolly MD SARS-CoV-2 Source .NASOPHARYNGEAL SWAB Normal [facility] Comment on above: Performed By: #### C OVID #### [facility] [address] [place] [address] [employer]astic [employer] Supervisor: Samson Martinez DO [facility] [address] [place] [address] [employer] Sheets Supervisor: Omar Segundo MD [facility] [address] [place] [address] [employer]astic Sheets Supervisor: Bill Jolly MD XR ABDOMEN (KUB) (SINGLE AP VIEW)on 02-08-2019 Nonspecific nonobstructive bowel gas pattern. No definite calcified urinary tract stones are seen. [facility] [place] EXAMINATION: ONE SUPINE XRAY VIEW(S) OF THE [...] nonobstructive bowel gas pattern. No unusual calcifications. [place] James, M[facility]pn Incoming Radiant Results From [employer] - 02/08/2019 4:29 PM EDT EXAMINATION: ONE [...] definite calcified urinary tract stones are seen. [place] Urinalysis with Microscopico n 02-06-2019 Amorphous, UA NOT REPORTED None [place] Bacteria, UA TRACE Abnormal None [place] Bilirubin Urine Negative NEGATIVE [place] Casts UA NOT REPORTED /LPF [place] Color, UA YELLOW YELLOW [place] Crystals UA NOT REPORTED None /HPF [place] Epithelial Cells UA 2 TO 5 [place] Glucose, Ur Negative NEGATIVE [place] Interpretation and review of laboratory results Abnormal [place] Ketones Ql (U) Negative NEGATIVE [place] Leukocyte esterase Test strip Ql (U) Negative NEGATIVE [place] Mucus, UA 1+ Abnormal None [place] Nitrite, Urine Negative NEGATIVE [place] Other Observations UA NOT REPORTED NOT REQ. [place] pH, UA 7.0 [place] Protein (U) [Mass/Vol] Negative NEGATIVE [place] RBC (U) [#/Vol] 0 TO 2 [place] Renal Epithelial, Urine NOT REPORTED 0 /HPF [place] Specific [place], UA 1.020 [place], [place] Trichomonas, UA NOT REPORTED None [place] Turbidity UA CLEAR CLEAR [place] Urinalysis Comments NOT REPORTED [place] Urine Hgb TRACE Abnormal NEGATIVE [place] Urobilinogen, Urine Normal Normal [place] WBC, UA 0 TO 2 [place] Yeast, UA NOT REPORTED None [place] Wet prep, genitalon 02-07-20 19 Direct Exam NO TRICHOMONAS SEEN [facility], [place] Direct Exam YEAST [place] Direct Exam CLUE CELLS SEEN Abnormal [place] Interpretation and review of laboratory results Abnormal [place] Special Requests NOT REPORTED [place] Specimen Description .VAGINA [place] Vital Signs Date Time Vital Sign Value Performing Clinician Facility 05-19-2023 15:36-0500 Diastolic blood pressure 59 mm[Hg] DO Matthew Lemus Work Phone: [facility] 05-19-2023 15:36-0500 Heart rate 95 /min DO Matthew Lemus Work Phone: [facility] 05-19-2023 15:36-0500 Respiratory rate 16 /min DO Matthew Lemus Work Phone: [facility] 05-19-2023 15:36-0500 SaO2% (BldA) [Mass fraction] 99 % DO Matthew Lemus Work Phone: [facility] 05-19-2023 15:36-0500 Systolic blood pressure 109 mm[Hg] DO Matthew Lemus Work Phone: [facility] 05-19-2023 12:39-0500 Body height 165.1 cm DO Matthew Lemus Work Phone: [facility] 05-19-2023 12:39-0500 Body weight 70.76 kg DO Matthew Lemus Work Phone: [facility] 05-10-2023 11:11-0500 Diastolic blood pressure 78 mm[Hg] Rishi MARSHALL [facility] 05-10-2023 11:11-0500 Heart rate 72 /min Rishi MARSHALL [facility] 05-10-2023 11:11-0500 Systolic blood pressure 117 mm[Hg] Rishi MARSHALL [facility] 04-27-2023 13:30-0500 Body height 166.37 cm Imad Asaad Other Action Other 04-27-2023 13:30-0500 Body mass index (BMI) [Ratio] 25.71 kg/m2 Imad Asaad Other [employer] Other 04-27-2023 13:30-0500 Body weight 71.17 kg Imad Asaad Other [employer] Other 02-11-2023 18:20-0400 Body height 166.37 cm Sarah Anderson Other Action Other 02-11-2023 18:20-0400 Body mass index (BMI) [Ratio] 27.69 kg/m2 Sarah Anderson Other Action Other 02-11-2023 18:20-0400 Body temperature 98.1 [degF] Sarah Anderson Other [facility] Other 02-11-2023 18:20-0400 Body weight 76.66 kg Sarah Anderson Other Action Other 02-11-2023 18:20-0400 Diastolic blood pressure 78 mm[Hg] Sarah Anderson Other [employer] Other 02-11-2023 18:20-0400 Respiratory rate 18 /min Sarah Anderson Other Action Other 02-11-2023 18:20-0400 SaO2% (BldA) [Mass fraction] 99 % Sarah Anderson Other [employer] Other 02-11-2023 18:20-0400 Systolic blood pressure 116 mm[Hg] Sarah Anderson Other [facility] [employer] Other 02-06-2023 07:30-0400 Body temperature 98.1 [degF] DO Matthew Marlenyhas Work Phone: [facility] 02-06-2023 07:30-0400 Diastolic blood pressure 60 mm[Hg] DO Matthew Marlenyhas Work Phone: [facility] 02-06-2023 07:30-0400 Heart rate 83 /min DO Matthew Marlenyhas Work Phone: [facility] 02-06-2023 07:30-0400 Respiratory rate 18 /min DO Matthew Farmerhas Work Phone: [facility] 02-06-2023 07:30-0400 SaO2% (BldA) [Mass fraction] 97 % DO Matthew Farmerhas Work Phone: [facility] 02-06-2023 07:30-0400 Systolic blood pressure 102 mm[Hg] DO Matthew Marlenyhas Work Phone: [facility] 02-03-2023 14:17-0400 Body height 165.1 cm DO Matthew Farmerhas Work Phone: [facility] 02-02-2023 23:53-0400 Body weight 74.15 kg DO Matthew Marlenyhas Work Phone: [facility] 06-30-2022 23:12-0500 Diastolic blood pressure 56 mm[Hg] Courtney Hernandez MD [facility] 06-30-2022 23:12-0500 Heart rate 88 /min Courtney Hernandez MD Work Phone: [employer] 06-30-2022 23:12-0500 Respiratory rate 16 /min Courtney Hernandez MD Work Phone: [employer] 06-30-2022 23:12-0500 Systolic blood pressure 100 mm[Hg] Courtney Hernandez MD Work Phone: [employer] 06-30-2022 22:21-0500 Body height 165.1 cm Courtney Hernandez MD Work Phone: [employer] 06-30-2022 21:13-0500 SaO2% (BldA) [Mass fraction] 98 % Courtney Hernandez MD Work Phone: [employer] 06-30-2022 18:31-0500 Body mass index (BMI) [Ratio] 28.96 kg/m2 Courtney Hernandez MD Work Phone: [employer] 06-30-2022 18:31-0500 Body weight 78.93 kg Courtney Hernandez MD Work Phone: [employer] 06-30-2022 18:27-0500 Body temperature 98.4 [degF] Courtney Hernandez MD Work Phone: [employer] 06-17-2022 17:10-0500 Diastolic blood pressure 65 mm[Hg] [facility] [employer] 06-17-2022 17:10-0500 Systolic blood pressure 114 mm[Hg] [facility] [employer] [facility] 06-17-2022 17:10-0500 Systolic blood pressure 110 mm[Hg] [facility] [employer] [facility] 06-17-2022 17:00-0500 Body height 166.37 cm Bridgette Ortega [facility] [employer] [facility] 06-17-2022 17:00-0500 Body mass index (BMI) [Ratio] 28.43 kg/m2 [facility] [employer] [facility] 06-17-2022 17:00-0500 Body surface area Derived from formula 1.91 m2 Bridgette Debbie [employer] 06-17-2022 17:00-0500 Body weight 78.7 kg Bridgette [employer] 06-17-2022 17:00-0500 Body weight 0.1 {percentile} Bridgette Lewis [employer] 06-17-2022 17:00-0500 Diastolic blood pressure 70 mm[Hg] Bridgette Lewis [employer] 06-17-2022 17:00-0500 Heart rate 72 /min Bridgette [employer] 06-17-2022 17:00-0500 Systolic blood pressure 118 mm[Hg] Bridgette Lewis [employer] 06-15-2022 17:35-0500 Body temperature 98.1 [degF] Maricel [employer] 06-15-2022 17:35-0500 Body weight 77.57 kg Maricel [employer] 06-15-2022 17:35-0500 Diastolic blood pressure 62 mm[Hg] [employer] 06-15-2022 17:35-0500 Heart rate 80 /min [employer] 06-15-2022 17:35-0500 Respiratory rate 16 /min [employer] 06-15-2022 17:35-0500 Systolic blood pressure 110 mm[Hg] [employer] 05-17-2022 11:45-0500 SaO2% (BldA) [Mass fraction] 98 % [employer] 05-17-2022 10:59-0500 Body height 166.37 cm Maricel [employer] 05-17-2022 10:59-0500 Body mass index (BMI) [Ratio] 28.19 kg/m2 [employer] 05-17-2022 10:59-0500 Body surface area Derived from formula 1.9 m2 Maricel [employer] 05-17-2022 10:59-0500 Body temperature 98.5 [degF] Maricel [employer] 05-17-2022 10:59-0500 Body weight 78.02 kg Maricel [employer] 05-17-2022 10:59-0500 Body weight 0.1 {percentile} [employer] 05-17-2022 10:59-0500 Diastolic blood pressure 60 mm[Hg] [employer] 05-17-2022 10:59-0500 Heart rate 90 /min [employer] 05-17-2022 10:59-0500 Respiratory rate 18 /min Maricel [employer] 05-17-2022 10:59-0500 Systolic blood pressure 112 mm[Hg] [employer] 02-10-2022 20:45-0400 Diastolic blood pressure 64 mm[Hg] DO Matthew Miltons Work Phone: [facility] 02-10-2022 20:45-0400 Heart rate 81 /min DO Matthew Yuhas Work Phone: [facility] 02-10-2022 20:45-0400 Respiratory rate 16 /min DO Matthew Marlenyhas Work Phone: [facility] 02-10-2022 20:45-0400 SaO2% (BldA) [Mass fraction] 99 % DO Matthew Lemus Work Phone: [facility] 02-10-2022 20:45-0400 Systolic blood pressure 100 mm[Hg] DO Matthew Lemus Work Phone: [facility] 02-10-2022 14:17-0400 Body height 165.1 cm DO Matthew Lemus Work Phone: [facility] 02-10-2022 14:17-0400 Body weight 81.64 kg DO Matthew Lemus Work Phone: [facility] 02-09-2022 10:01-0400 Body height 166.37 cm Kaleigh [email or web address] 02-09-2022 10:01-0400 Diastolic blood pressure 64 mm[Hg] Kaleigh [email or web address] 02-09-2022 10:01-0400 Heart rate 120 /min Kaleighjacob Guevara [employer] 02-09-2022 10:01-0400 Systolic blood pressure 118 mm[Hg] Kaleigh Ismael [employer] 01-29-2022 11:30-0400 Body height 166.37 cm Bridgette Ortega [employer] 01-29-2022 11:30-0400 Diastolic blood pressure 62 mm[Hg] Bridgette Lewis [employer] 01-29-2022 11:30-0400 Heart rate 100 /min Bridgette Dejes[employer] 01-29-2022 11:30-0400 Systolic blood pressure 114 mm[Hg] Bridgette Lewis [employer] 01-25-2022 10:30-0400 Body height 166.37 cm Tae Natarajan Other [employer] Other 01-25-2022 10:30-0400 Body mass index (BMI) [Ratio] 29.49 kg/m2 Tae Stanleyrer Other [employer] Other 01-25-2022 10:30-0400 Body temperature 97.8 [degF] Tae Natarajan Other [employer] Other 01-25-2022 10:30-0400 Body weight 81.65 kg Tae Natarajan Other [employer] Other 01-25-2022 10:30-0400 Diastolic blood pressure 64 mm[Hg] Tae Tsaiwilliam Other [employer] Other 01-25-2022 10:30-0400 SaO2% (BldA) [Mass fraction] 99 % Tae Natarajan Other [employer] Other 01-25-2022 10:30-0400 Systolic blood pressure 110 mm[Hg] Tae Stanleyrer Other [employer] Other 01-19-2022 10:59-0400 Body height 166.37 cm Bridgette Ortega [facility] [employer] 01-19-2022 10:59-0400 Body mass index (BMI) [Ratio] 29.5 kg/m2 Bridgette Dejesushard [employer] 01-19-2022 10:59-0400 Body surface area Derived from formula 1.94 m2 Bridgette Dejesushard [employer] 01-19-2022 10:59-0400 Body weight 81.65 kg Bridgette Ortega [employer] 01-19-2022 10:59-0400 Diastolic blood pressure 72 mm[Hg] Bridgette Ortega [employer] 01-19-2022 10:59-0400 Heart rate 112 /min Bridgette Otrega [employer] 01-19-2022 10:59-0400 Systolic blood pressure 114 mm[Hg] Bridgette [employer] 10-11-2021 18:26-0400 Diastolic blood pressure 77 mm[Hg] Matthew Lemus Work Phone: [facility] 10-11-2021 18:26-0400 Systolic blood pressure 130 mm[Hg] Matthew Lemus Work Phone: [facility] 10-11-2021 14:00-0400 Body mass index (BMI) [Ratio] 28.46 kg/m2 Matthew Lemus Work Phone: [facility] 10-11-2021 14:00-0400 Body temperature 97.81 [degF] Matthew Lemus Work Phone: [facility] 10-11-2021 14:00-0400 Body weight 77.56 kg Matthew Lemus Work Phone: [facility] 10-11-2021 14:00-0400 Heart rate 95 /min Matthew Lemus Work Phone: [facility] 10-11-2021 14:00-0400 Respiratory rate 16 /min Matthew Lemus Work Phone: [facility] 10-11-2021 14:00-0400 SaO2% (BldA) [Mass fraction] 98 % Matthew Lemus Work Phone: [facility] 09-29-2021 13:04-0400 Blood Pressure Location Rishi MARSHALL [facility] Nanyc 09-29-2021 13:04-0400 Diastolic blood pressure 83 mm[Hg] Rishi MARSHALL [facility] Nancy 09-29-2021 13:04-0400 Heart rate 100 /min Rishi MARSHALL [facility] Nancy 09-29-2021 13:04-0400 Systolic blood pressure 124 mm[Hg] Rishi MARSHALL [facility] Nancy 09-04-2021 09:22-0400 Blood Pressure Location [facility] 09-04-2021 09:22-0400 Diastolic blood pressure 67 mm[Hg] Rishi MARSHALL [facility] Dina 09-04-2021 09:22-0400 Heart rate 78 /min Rishi MARSHALL [facility] Dina 09-04-2021 09:22-0400 Respiratory rate 16 /min Rishi MARSHALL [facility] Dina 09-04-2021 09:22-0400 Systolic blood pressure 97 mm[Hg] Rishi [facility]SHALL [facility] 03-16-2020 15:12-0400 BMI (Body Mass Index) 25.96 kg/m2 [facility] [place] 03-16-2020 15:12-0400 Body Temperature 99 [degF] Catracho Parisi [facility] [place] 03-16-2020 15:12-0400 Body weight 70.76 kg Catracho Parisi [facility] , [place] 03-16-2020 15:12-0400 BP Diastolic 69 mm[Hg] [place] 03-16-2020 15:12-0400 BP Systolic 125 mm[Hg] [place] 03-16-2020 15:12-0400 Pulse (Heart Rate) 77 /min [place] 03-16-2020 15:12-0400 Pulse Oximetry 99 % [place] 03-16-2020 15:12-0400 Respiratory Rate 18 /min [place] 10-05-2019 13:30-0400 Body Temperature 98.1 [degF] [place] 10-05-2019 13:30-0400 BP Diastolic 72 mm[Hg] [place], [place] 10-05-2019 13:30-0400 BP Systolic 110 mm[Hg] [place] 10-05-2019 13:30-0400 Pulse (Heart Rate) 76 /min [place] 10-05-2019 13:30-0400 Pulse Oximetry 100 % [place] 10-05-2019 13:30-0400 Respiratory Rate 18 /min [place] 10-05-2019 10:26-0400 BMI (Body Mass Index) 24.37 kg/m2 [place] 10-05-2019 10:26-0400 Body weight 68.49 kg [place] 10-05-2019 10:26-0400 Height 167.6 cm [place] Encounters Encounter Date Encounter Type Care Provider Facility Start: 09-27-2023 ambulatory Rishi Cardenas ty:POWER Cruz Start: 06-13-2023 End: 06-13-2023 ambulatory CASEY DAVIDSON Not Available Start: 06-02-2023 End: 06-02-2023 ambulatory JORGE SIGALA [facility] Start: 05-19-2023 End: 05-19-2023 ambulatory Imad Asaad Facility:[facility] Start: 05-19-2023 End: 05-19-2023 Admission to same day surgery center DO Matthew Lemus Work Phone: [facility] Work Phone: Start: 05-19-2023 End: 05-19-2023 ambulatory DO Matthew Lemus Work Phone: [facility] Work Phone: Start: 05-17-2023 End: 05-17-2023 ambulatory Imad Asaad Other Action Other Start: 05-17-2023 Telephone encounter Imad Asaad [facility] Start: 05-12-2023 End: 05-12-2023 ambulatory Imad Asaad Facility:[facility] Start: 05-12-2023 End: 05-12-2023 ambulatory DO Matthew Lemus Work Phone: [facility] Work Phone: Start: 05-12-2023 End: 05-12-2023 Patient encounter procedure DO Matthew Lemus Work Phone: [facility] [place] Work Phone: Start: 05-10-2023 End: 05-11-2023 ambulatory Rishi MARSHALL Facility: [facility] Start: 05-10-2023 End: 05-10-2023 Patient encounter procedure Rishi MARSHALL [facility] Start: 04-27-2023 End: 04-27-2023 ambulatory Imad Asaad Other Action Other Start: 04-27-2023 Office outpatient ne w 45 minutes Imad Asaad [facility] Start: 04-14-2023 End: 04-15-2023 ambulatory Rishi MARSHALL Facility:[id number] Start: 03-10-2023 End: 03-10-2023 Emergency department patient visit VINOD CLARK [facility] Start: 02-11-2023 End: 02-11-2023 ambulatory Sarah Anderson Other Action Other Start: 02-11-2023 Office outpatient visit 15 minutes Sarah Anderson [facility] Start: 02-03-2023 Telephone encounter Christine Macias DO Work Phone: Gastroenterology Comment on above: Appointment Start: 02-02-2023 End: 02-06-2023 Evaluation and management of inpatient Matthew Lemus Facility:[facility] Start: 02-02-2023 End: 02-06-2023 Evaluation and management of inpatient DO Matthew Lemus Work Phone: [address] Work Phone: Start: 02-02-2023 ambulatory Matthew Lemus Facility:[facility] Start: 09-23-[address] CASEY DAVIDSON . Facili ty:[facility]1 Start: 09-16-2022 End: 09-16-[address] BRIDGETTE KRAUSE . Facility:[facility] Start: 09-04-2022 End: 09-04-2022 ambulatory CHUY MCNAMARA Facility:[facility] Start: 08-30-2022 End: 08-31-[address] CASEY DAVIDSON . Facility:[facility] Start: 08-17-2022 End: 08-18-[address] CASEY DAVIDSON . Facility:[facility] Start: 08-10-2022 End: 08-11-2022 ambulatory CASEY DAVIDSON [facility] Start: 07-21-2022 End: 07-21-[address] CASEY DAVIDSON . Facility:[facility] Start: 07-20-2022 End: 07-21-[address] CASEY DAVIDSON . Facility:[facility] Start: 07-06-2022 End: 07-06-[address] MATTHEW LEMUS Facility:[facility] Start: 06-30-2022 End: 07-01-2022 ambulatory BRIDGETTE Oh [facility] Start: 06-30-2022 End: 07-01-2022 Emergency department patient visit Courtney Hernandez MD Work Phone[facility] Comment on above: Hyperemesis (Primary Dx); Pelvic cramping Start: 06-22-2022 End: 06-22-2022 ambulatory AUDELIA HOBBS . Facility:[facility] Start: 06-21-2022 Office Services Bridgette lindsay Other [facility] Start: 06-18-2022 Office Services Bridgette lindsay Other [facility] Start: 06-17-2022 Office outpatient visit 15 minutes Bridgette Lewis Other [facility] Start: 06-15-2022 Office outpatient visit 15 minutes Maricel Stafford Other [facility] Start: 06-15-2022 Office Services Maricel Stafford Other [facility] Start: 06-09-[address] MATTHEW LEMUS Facility: [facility] Start: 06-05-2022 End: 06-06-[address] MATTHEW LEMUS Facility:[facility] Start: 05-26-2022 End: 05-27-[address] MATTHWE LEMUS Facility:[facility] Start: 05-17-2022 Office consultation new/estab patient 60 min Maricel Stafford Other [facility] Start: 04-30-2022 End: 05-01-[address] MATTHEW LEMUS Facility:[facility] Start: 04-08-2022 End: 04-09-[address] MATTHEW LEMUS Facility:[facility] Start: 03-29-2022 Lab Bridgette lindsay Other [facility] Start: 03-22-2022 End: 03-23-[address] MATTHEW LEMUS Facility:[facility] Start: 03-17-2022 Lab Kaleigh Hernandez ams Other [facility] Start: 03-03-2022 End: 03-04-[address] MATTHEW LEMUS Facility:[facility] Start: 02-10-2022 End: 02-10-2022 Admission to same day surgery center DO Matthew Lemus Work Phone: [facility]Inter[facility] Start: 02-09-2022 Patient encounter procedure Kaleigh Guevara [facility] Start: 02-09-2022 Periodic preventive med est patient 18-39 yrs Kaleighjacob Guevara Other [facility] Start: 02-04-2022 Encounter for genera l adult medical examination without abnormal findings Bridgette Lewis [facility] Start: 02-04-2022 Lab Bridgette lindsay Other [facility] Start: 02-04-2022 Office Services Kaleigh Blue Hernandez ams Other [facility] Start: 01-29-2022 Office outpatient visit 15 minutes Bridgette Lewis Other [facility] Start: 01-25-2022 End: 01-25-2022 ambulatory Tae Natarajan Other Action Other Start: 01-25-2022 Office outpatient ne w 45 minutes Tae Natarajan [facility] Vascular Surgery Start: 01-19-2022 Office outpatient ne w 30 minutes Bridgette Lewis Other [facility] Start: 12-17-2021 Encounter for genera l adult medical examination without abnormal findings [facility] Start: 12-04-2021 End: 12-05-[address] MATTHEW LEMUS Facility:[facility]1 Start: 11-14-2021 End: 11-14-[address] MATTHEW LEMUS Facility:[facility] Start: 10-12-2021 End: 10-12-2021 Subsequent hospital visit by physician Matthew Lemus Work Phone: [facility] Laboratory Start: 10-11-2021 End: 10-11-2021 Emergency department patient visit Matthew Miltonoliva Work Phone: [facility] ED Comment on above: Lower abdominal pain (Primary Dx) Start: 10-09-2021 End: 10-10-[address] MATTHEW LEMUS Facility: Start: 09-29-2021 End: 09-29-2021 Patient encounter procedure Rishi MARSHALL [facility] [place] Start: 09-04-2021 End: 09-04-2021 Patient encounter procedure Rishi MARSHALL [facility] Dina Start: 03-16-2020 End: 03-16-2020 Emergency department patient visit Catracho Jorge Isak Work Phone: [facility] ED Comment on above: Viral URI with cough (Primary Dx) Start: 03-07-2020 End: 03-07-2020 Subsequent hospital visit by physician Areli Covid Screening Schedule [facility] Covid Screening Comment on above: Acute frontal sinusi tis, recurrence not specified Start: 03-03-2020 End: 03-03-2020 Subsequent hospital visit by physician [facility]eth [facility] Comment on above: Gross hematuria Start: 10-12-2019 End: 10-15-2019 Patient encounter procedure [facility] Start: 10-12-2019 End: 10-14-2019 Subsequent hospital visit by physician Juan A Laguerre Room 2 [facility] Nuclear Medicine Comment on above: Intractable nausea a nd vomiting Start: 10-05-2019 End: 10-05-2019 Patient encounter procedure [facility] Start: 10-05-2019 End: 10-05-2019 Subsequent hospital visit by physician Toño Blanc Work Phone: [facility] Start: 10-03-2019 End: 10-04-2019 Patient encounter procedure BRIANA RUBIO [facility] Start: 10-03-2019 End: 10-03-2019 Subsequent hospital visit by physician Lisseth [place] [facility] Start: 10-02-2019 End: 10-02-2019 Subsequent hospital visit by physician oTnio Covid19 Pat Screening Schedule [facility] Pre-Admit Testing Comment on above: No Show Start: 02-08-2019 End: 02-10-2019 Subsequent hospital visit by physician Khalida Grey Dr Room 2 [facility] Radiology Comment on above: Gross hematuria; Urgency of urination Start: 02-06-2019 End: 02-06-2019 Subsequent hospital visit by physician Lisseth MAGALLANES Laboratory Comment on above: Gross hematuria; Urgency of urination Start: 01-15-2019 End: 01-15-2019 Subsequent hospital visit by physician Lisseth MAGALLANES Laboratory Comment on above: Dysuria; Gross hematuria Procedures Date Procedure Procedure Detail Performing Clinician Start: 05-19-2023 Esophagogastroduodenoscopy DO Matthew Lemus Work Phone: Start: 05-12-2023 Computed tomography of abdomen and pelvis with [...] Phone: Start: 06-18-2022 Infusion of saline solution Bridgette lindsay Start: 06-18-2022 Normal saline solution infus Bridgette mcarthur Start: 06-17-2022 Blood chemistry Bridgette Lewis Start: 06-17-2022 Basic metabolic panel calcium total Ravinder Lewis Start: 06-17-2022 Docrev cur meds by umair adkinsts Start: 06-17-2022 Erythrocyte mean corpuscular volume determination Bridgette Lewis Start: 06-17-2022 Urinalysis, automated Bridgette Lewis Start: 06-15-2022 Docrev cur meds by [facility] Maricel Stafford Start: 06-15-2022 Spirometry for bronchospasm with prolonged evaluation after bronchodilator Bridgette Lewis Start: 05-17-2022 Docrev cur meds by [facility] Maricel Stafford Start: 05-17-2022 Measurement of nitric oxide Maricel Stafford Start: 03-29-2022 Human chorionic gonadotropin measurement Maricel Stafford Start: 03-17-2022 Human chorionic gonadotropin measurement Bridgette Lewis Start: 02-10-2022 Abdominal aortogram DO Matthew Lemus Work Phone: Start: 02-09-2022 Docrev cur meds by [facility] Start: 02-04-2022 Comprehensive metabolic panel Kaleigh camp Start: 02-04-2022 Erythrocyte mean corpuscular volume determination Kaleigh Guevara Start: 02-04-2022 Lipid panel Kaleigh Guevara Start: 02-04-2022 Radiologic exam chest 2 views Bridgette sanford Start: 02-04-2022 Thyroid stimulating hormone measurement Kaleigh Guevara Start: 02-04-2022 Urinalysis, automated Kaleigh Guevara Start: 01-29-2022 Docrev cur meds by [facility] Bridgette mcarthur Start: 01-19-2022 Docrev cur meds by [facility] Bridgette mcarthur Start: 01-19-2022 Ketorolac tromethamine inj Bridgette Corado tts Start: 01-19-2022 Therapeutic prophylactic/dx injection subq/im Bridgette Lewis Start: 01-05-2022 Skin test for tuberculosis, Bhumika test Start: 12-23-2021 Skin test for tuberculosis, Bhumika test Start: 10-12-2021 Gonadotropin chorionic quantitative Matthew Lemus Work Phone: Start: 10-11-2021 Ct abdomen & pelvis w/contrast material Christine Vazquez PA-C Work Phone: Start: 10-11-2021 Assay of lipase Christine Vazquez PA-C Work Phone: Start: 10-11-2021 Urinalysis microscopic only Christine Vazquez REBECA Work Phone: Start: 10-11-2021 Urine test visual color cmprsn meths Christine Vazquez REBECA Work Phone: Start: 09-29-2021 Cystoscopy Rishi MARSHALL Start: 03-16-2020 Radiologic exam chest single view Neal joreg Yolette HendersonParisi Work Phone: Start: 03-03-2020 Urnls dip stick/tablet [...] BLANC Start: 10-05-2019 Continuous pulse oximetry TOÑO KASSIDYMeli Mcarthur Start: 10-05-2019 ENCOURAGE DEEP BREATHING AND COUGHING TOÑO BLANC Start: 10-05-2019 INITIATE OXYGEN THERAPY PROTOCOL TOÑO BLANC Start: 10-05-2019 NOTIFY PHYSICIAN (SPECIFY) TOÑO YI NANCY Start: 10-05-2019 NURSING COMMUNICATION BANEGAS JAYASHREE Start: 10-05-2019 VITAL SIGNS TOÑO BLANC Start: 10-05-2019 INSERT PERIPHERAL IV TOÑO BLANC Start: 10-05-2019 Urine test visual color cmprsn meths TOÑO BLANC Start: 10-05-2019 Urine test visual color cmprsn meths Toño Blanc Work Phone: Start: 10-02-2019 COVID-19 BRIANAVIVIENNE RUBIO Start: 10-02-2019 COVID-19 BrianRojelio Rubio Work Phone: [...] Author Start: 04-09-2026 HIV screen HIV screen [place], [place] Comment on above: Postponed from 2012 (Unavailable) Start: 04-09-2026 HIV screening HIV screen [facility] Comment on above: Postponed from 2012 (Unavailable) Start: 11-10-2025 DTaP/Tdap/Td vaccine (5 - Td or Tdap) DTaP/Tdap/Td vaccine (5 - Td or Tdap) [facility] Start: 11-10-2025 DTaP/Tdap/Td vaccine (6 - Tdap) DTaP/Tdap/Td vaccine (6 - Tdap) [place] Start: 05-19-2023 [facility] Start: 02-06-2023 [facility] Start: 02-02-2023 Hospital admission [facility] Start: 01-28-2023 Influenza vaccination INFLUENZA (#1) [facility] Start: 08-09-2022 Lipid panel Lipid panel [facility] Start: 08-09-2022 Transferase alanine amino alt sgpt ALT [facility] Start: 08-09-2022 Transferase aspartate amino ast sgot AST [facility] Start: 06-21-2022 Iv infusion hydration initial 31 min-1 hour IV HYDRATION,INITIAL,31 MINUTES TO 1 HOUR [facility] Start: 06-17-2022 Basic metabolic panel calcium total Chem 8 [facility] Start: 01-17-2023 Brncdilat rspse spmtry pre&post-brncdilat admn Spirometry with bronchodilator [facility] Start: 05-30-2022 DEPRESSION ASSESSMENT DEPRESSION ASSESSMENT [facility] Start: 05-17-2022 Nitric oxide gas determination FENO [facility] Start: 04-03-2022 Depression Monitoring Depression Monitoring [facility] Start: 03-29-2022 Gonadotropin chorionic quantitative Beta HCG Quantitative [employer] Start: 03-17-2022 Gonadotropin chorionic quantitative Beta HCG Quantitative [employer] Start: 02-10-2022 [facility] Work Phone: Start: 02-04-2022 Assay of thyroid stimulating hormone tsh TSH [employer] Start: 02-04-2022 Blood count complete automated CBC PLATELET COUNT; AUTOMATED [employer] Start: 02-04-2022 Comprehensive metabolic panel Comp [facility] Start: 02-04-2022 Lipid panel Lipid panel [employer] Start: 02-04-2022 Urnls dip stick/tablet rgnt auto w/o microscopy UA [facility] Start: 02-04-2022 Chest PA & LAT [employer] Start: 01-19-2022 Therapeutic prophylactic/dx injection subq/im Sub Q/ IM injection [facility] Start: 12-28-2021 Influenza vaccination Flu vaccine (#1) [facility] Start: 12-23-2021 Skin test tuberculosis intradermal PPD (Skin test; tuberculosis, intradermal) [facility] Start: 07-29-2021 COVID-19 Vaccine (3 - Booster for Pfizer series) COVID-19 Vaccine (3 - Booster for Pfizer series) [facility] Start: 05-12-2021 COVID-19 Vaccine (5 - Booster) COVID-19 Vaccine (5 - Booster) [facility] Start: 03-03-2020 End: 03-03-2020 Office Visit 03/03/2020 Office Visit Urology Jose Lala MD [address], [address] [place] [address] [facility] Start: 02-07-2020 Chlamydia screen Chlamydia screen [place], [place] Start: 02-07-2020 Screening for Chlamydia trachomatis Chlamydia screen [facility] Start: 01-29-2020 Influenza vaccination [place] Start: 11-04-2019 Chlamydia screen Chlamydia screen [place] Start: 10-05-2019 End: 10-05-2019 Hospital Encounter [facility] Comment on above: EGD ESOPHAGOGASTRODUODENOSCOPY Start: 02-20-2019 End: 02-20-2019 Office Visit 02/20/2019 Office Visit 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, [employer] MANAGER - [employer] HUNTER [address] [address] [place] [address] [facility] Start: 02-08-2019 End: 02-08-2019 Appointment 02/08/2019 Appointment Radiology [facility] Start: 01-28-2019 Influenza vaccination Flu vaccine (#1) [place] Start: 2018 Cervical cancer screen Cervical cancer screen [place], [place] Start: 2018 PAP TESTING PAP TESTING [facility] Start: 2018 Screening for malignant neoplasm of cervix [facility] Start: 2016 Urine microalbumin profile DTAP,TDAP,TD (1 - Tdap) [facility] Start: 2015 Hepatitis C screening Hepatitis C screen [facility] Start: 2015 HEPATITIS C SCREENING HEPATITIS C SCREENING [facility] Start: 2015 HIV SCREENING HIV SCREENING [facility] Start: 02-05-2014 Varicella vaccine (2 of 2 - 13+ 2-dose series) Varicella vaccine (2 of 2 - 13+ 2-dose series) [facility] Start: 2012 HPV vaccine (1 - Female 3-dose series) HPV vaccine (1 - Female 3-dose series) [place] Start: 2011 PEDS TO ADULT TRANSITION ANNUAL ASSESSMENT PEDS TO ADULT TRANSITION ANNUAL ASSESSMENT [facility] Start: 2010 Varicella Vaccine (1 of 2 - 13+ 2-dose series) Varicella Vaccine (1 of 2 - 13+ 2-dose series) [place] Start: 2009 PEDS TO ADULT TRANSITION INITIAL DISCUSSION PEDS TO ADULT TRANSITION INITIAL DISCUSSION [facility] Start: 2008 HPV vaccine (1 - 2-dose series) HPV vaccine (1 - 2-dose series) [facility] Start: 2006 HPV VACCINE (1 - 2-dose series) HPV VACCINE (1 - 2-dose series) [facility] Start: 2003 Pneumococcal 0-64 years Vaccine (1 - PCV) Pneumococcal 0-64 years Vaccine (1 - PCV) [facility] Start: 2003 Pneumococcal 0-64 years Vaccine (1 of 1 - PPSV23) Pneumococcal 0-64 years Vaccine (1 of 1 - PPSV23) [place] Start: 1998 Varicella vaccine (1 of 2 - 2-dose childhood series) Varicella vaccine (1 of 2 - 2-dose childhood series) [place] Start: 1997 COVID-19 VACCINE (#1) COVID-19 VACCINE (#1) [facility] Start: 1997 HEPATITIS B (1 of 3 - 3-dose series) HEPATITIS B (1 of 3 - 3-dose series) [facility] End: 01-15-2019 Bacteria identified Cx Nom (U) Urine Culture Microbiology Routine Dysuria Gross hematuria 1 Occurrences starting 01/15/2019 until 01/15/2019 [place] Comment on above: 1 Occurrences starting 01/15/2019 until 01/15/2019 End: 02-06-2019 C.trachomatis N.gonorrhoeae DNA, Urine C.trachomatis N.gonorrhoeae DNA, Urine Microbiology Routine Gross hematuria Urgency of urination 1 Occurrences starting 02/06/2019 until 02/06/2019 [place] Comment on above: 1 Occurrences starting 02/06/2019 until 02/06/2019 C.trachomatis N.gono rrhoeae DNA, Urine C.trachomatis N.gonorrhoeae DNA, Urine Microbiology Routine Gross hematuria Urgency of urination 02/06/2019 12:22 PM EDT [place] COVID-19 [facility] [place] End: 10-02-2019 COVID-19 COVID-19 Lab Routine One Time for 1 Occurrences starting 10/02/2019 until 10/02/2019 [place] Comment on above: One Time for 1 Occurrences starting 09/2019 until 10/02/2019 End: 03-07-2020 COVID-19 Ambulatory COVID-19 Ambulatory Lab Routine Acute frontal sinusitis, recurrence not specified 1 Occurrences starting 03/07/2020 until 03/07/2020 [place] Comment on above: 1 Occurrences starting 03/07/2020 until 03/07/2020 COVID-19 Ambulatory COVID-19 Amb ulatory Lab Routine Acute frontal sinusitis, recurrence not specified 03/07/2020 11:12 AM EDT [place] End: 03-16-2020 COVID-19, PCR COVID-19, PCR Lab Routine One Time for 1 Occurrences starting 03/16/2020 until 03/16/2020 [place] Comment on above: One Time for 1 Occurrences starting 02/27 until 03/16/2020 End: 03-03-2020 Culture, Urine Culture, Urine Microbiology Routine Gross hematuria 1 Occurrences starting 03/03/2020 until 03/03/2020 [place] Comment on above: 1 Occurrences starting 03/03/2020 until 03/03/2020 Culture, Urine [place] End: 06-30-2022 Culture, Urine [facility] Work Phone: Comment on above: One Time for 1 Occurrences starting 05/2022 until 06/30/2022 [place] Comment on above: Release Upon Ordering for 1 Occurrences starting 10/05/2019 Initiate Oxygen Therapy Protocol Initiate Oxygen Therapy Protocol Respiratory Care Routine Daily until discontinued starting 10/05/2019 [place] Comment on above: Daily until discontinued starting 2019 Patient Education Depression, Ad ult (DC) [facility] Behavioral Health DC Instructions [facility] Work Phone: Patient referral [facility] Work Phone: Phase I & II - metered glucose P hase I & II - metered glucose Point of Care Testing Routine As Needed until discontinued starting 10/05/2019 [place] Comment on above: As Needed until discontinued starting End: 10-05-2019 POC Urine Qual POC Urine Qual Point of Care Testing Routine One Time for 1 Occurrences starting 10/05/2019 until 10/05/2019 [place] Comment on above: One Time for 1 Occurrences starting 12/2019 until 10/05/2019 Surgical Pathology Surgical Path ology Lab Routine Release Upon Ordering for 1 Occurrences starting 10/05/2019 [place] Comment on above: Release Upon Ordering for 1 Occurrences starting 10/05/2019 End: 02-06-2019 Urine culture clean catch Urine culture clean catch Microbiology Routine Gross hematuria Urgency of urination 1 Occurrences starting 02/06/2019 until 02/06/2019 [place] Comment on above: 1 Occurrences starting 02/06/2019 until 02/06/2019 Urine culture clean catch Urine culture clean catch Microbiology Routine Gross hematuria Urgency of urination 02/06/2019 12:22 PM EDT [place] Immunizations Immunization Date Immunization Notes Care Provider [facility] 09-17-2022 tetanus toxoid, reduced diphtheria toxoid, and acellular pertussis vaccine, adsorbed Rishi MARSHALL [facility] 01-05-2022 Tubersol [employer] 12-23-2021 [facility] [employer] 04-28-2021 influenza virus vaccine, unspecified formulation Rishi MARSHALL [facility] 03-17-2021 COVID-19, Pfizer, 30mcg/0.3ml Bridgette Lewis [facility] 02-28-2021 SARS-CoV-2 (COVID-19 ) mRNA BNT-162b2 vax Rishi MARSHALL [facility] 02-27-2021 SARS-CoV-2 (COVID-19 ) Ad26 vaccine, recombinant Rishi MARSHALL [facility] 02-08-2021 SARS-CoV-2 (COVID-19 ) mRNA BNT-162b2 vax Rishimaricel MARSHALL [facility] 01-28-2021 SARS-CoV-2 (COVID-19 ) Ad26 vaccine, recombinant Rishi MARSHALL [facility] 01-20-2021 COVID-19, Pfizer, 30mcg[facility]0.3ml [facility] 05-02-2018 influenza virus vaccine, unspecified formulation [facility] [place] 01-27-2016 Influenza Vaccine, unspecified formulation [facility] 01-27-2016 influenza virus vaccine, unspecified formulation Rishi MARSHALL [facility] 12-29-2015 hepatitis B vaccine, adult dosage Rishi MARSHALL [facility] 12-17-2015 hepatitis B vaccine, unspecified formulation [facility] [place] 11-26-2015 hepatitis B vaccine, adult dosage Rishi MARSHALL [facility] 11-11-2015 diphtheria, tetanus toxoids and acellular [facility]ussis [facility] 11-11-2015 tetanus toxoid, reduced diphtheria toxoid, and acellular pertussis vaccine, adsorbed Rishi Qustodian [facility] 01-08-2014 tetanus toxoid, reduced diphtheria toxoid, and acellular pertussis vaccine, adsorbed Rishi Qustodian [facility] 01-08-2014 varicella virus vaccine Rishi Qustodian [facility] 10-17-2002 DTaP, unspecified formulation [facility] 10-17-2002 measles, mumps and rubella virus vaccine [facility] [place] 10-17-2002 poliovirus vaccine, inactivated [facility] [place] 05-17-1998 Hib, unspecified Dipakk[facility], [place] 05-17-1998 poliovirus vaccine, inactivated [facility] [place] 03-27-1998 diphtheria, tetanus toxoids and acellular pertussis vaccine [facility] 03-27-1998 DTaP, unspecified formulation RishiCraneware [facility] 03-27-1998 Hib, unspecified Dipakkumar [facility], [place] 03-27-1998 measles, mumps and rubella virus vaccine [facility] [place] 1997 diphtheria, tetanus toxoids and acellular pertussis vaccine [facility] [facility] [place] [facility] DTaP, unspecified formulation GO-SIM [facility] 1997 hepatitis B vaccine, adult dosage Matthew Karineoliva Work Phone: [facility] Work Phone: 1997 hepatitis B vaccine, unspecified formulation [facility], [place] 1997 Hib, unspecified [facility], [place] 1997 poliovirus vaccine, inactivated Dipakkumar [facility], [place] 1997 diphtheria, tetanus toxoids and acellular pertussis vaccine [facility], [place] 1997 DTaP, unspecified formulation Rishi MARSHALL [facility] 1997 diphtheria, tetanus toxoids and acellular pertussis vaccine [facility] [place] 1997 DTaP, unspecified formulation Rishi MARSHALL [facility] 1997 Hib, unspecified Dipakkumar [facility], [place] 1997 Hib, unspecified formulation Rishi MARSHALL [facility] 1997 poliovirus vaccine, inactivated [facility] [place] 1997 hepatitis B vaccine, adult dosage Matthew Lemus Work Phone: [employer] Work Phone: 1997 hepatitis B vaccine, pediatric or pediatric/adolescent dosage Rishi MARSHALL [facility] 1997 hepatitis B vaccine, unspecified formulation [facility] [place] 1997 hepatitis B vaccine, adult dosage Matthew Lemus Work Phone: [employer] Work Phone: 1997 hepatitis B vaccine, pediatric or pediatric/adolescent dosage Rishi MARSHALL [facility] 1997 hepatitis B vaccine, unspecified formulation [employer] [place], [place] Payers Date Payer Category Payer Medicaid [employer] [facility] [place] [id number] 2022-Present [phone] [address] [place] [address] Medicaid [id number] 2015 Unknown BCBS [place] P PO xxxxxxxxxxxx 2015-Present [address] [place] [address] xxxxxxxxxxxx [id number] .[id number] 1997 Unknown [id number] 2.16.840.1.482175.3.579.2.177 1997 Unknown [id number] 2.16.840.1.656266.3.579.2.177 1997 Unknown [id number] 2.16.840.1.598750.3.579.2.175 1997 Unknown [id number] 2.16.840.1.672529.3.579.2.593 1997 Unknown [id number] 2.16.840.1.672418.3.579.2.593 1997 Unknown [id number] 2.16.840.1.819394.3.579.2.593 1997 Unknown [id number] 2.16.840.1.528673.3.579.2.593 1997 Unknown [id number] 2.16.840.1.062632.3.579.2.593 1997 Unknown [id number] 2.16.840.1.366073.3.579.2.593 1997 Unknown [id number] 2.16.840.1.810967.3.579.2.593 1997 Unknown [id number] 2.16.840.1.405234.3.579.2.593 1997 Unknown [id number] 2.16.840.1.735084.3.579.2.593 1997 Unknown [id number] 2.16.840.1.148186.3.579.2.593 1997 Unknown [id number] 2.16.840.1.485098.3.579.2.593 1997 Unknown [id number] 2.16.840.1.189896.3.579.2.593 1997 Unknown [id number] 2.16.840.1.878131.3.579.2.593 1997 Unknown [id number] 2.16.840.1.637150.3.579.2.593 1997 Unknown [id number] 2.16.840.1.773514.3.579.2.593 1997 Unknown [id number] 2.16.840.1.579716.3.579.2.593 1997 Unknown [id number] 2.16.840.1.576854.3.579.2.593 1997 Unknown [id number] 2.16.840.1.746684.3.579.2.593 1997 Unknown [id number] 2.16.840.1.284012.3.579.2.593 1997 Unknown [id number] 2.16.840.1.987298.3.579.2.173 1997 Unknown [id number] 2.16.840.1.090137.3.579.2.173 1997 Unknown [id number] 2.16.840.1.401094.3.579.2.173 1997 Unknown [id number] 2.16.840.1.679823.3.579.2.727 1997 Unknown [id number] 2.16.840.1.249607.3.579.2.727 1997 Unknown [id number] 2.16.840.1.391964.3.579.2.727 1997 Unknown [id number] 2.16.840.1.513493.3.579.2.128 6 1997 Unknown [id number] 2.16.840.1.732934.3.579.2.125 9 1959 Self-pay [id number] 1959 Unknown [id number] 1959 Unknown [id number] 2.16.840.1.922890.3.441 1959 Unknown [id number] Unknown [id number] 2.16.840.1.444078.3.579.2.531 Unknown [id number] 2.16.840.1.140478.3.579.2.531 Unknown [id number] 2.16.840.1.038541.3.579.2.531 Unknown [id number] 2.16.840.1.505847.3.579.2.531 Social History Date Type Detail Facility Start: 02-06-2019 End: 05-19-2023 Tobacco smoking status NHIS Never smoker [place] Start: 11-15-2018 End: 02-06-2019 Alcohol intake No [place] Start: 1995 Sex Assigned At Not on file [place] Start: 07-31-2019 End: 10-05-2019 Alcohol intake Current non-drinker of alcohol (finding) [place] Exposure to SARS-CoV -2 (event) Unable to assess [place] Start: 02-26-2017 End: 03-03-2020 Tobacco use and exposure Never used [place] Start: 03-03-2020 End: 07-01-2022 Alcohol intake Current drinker of alcohol (finding) [place] Start: 03-03-2020 Alcohol Comment occasional [place] Start: 10-01-2021 End: 06-30-2022 Exposure to SARS-CoV-2 (event) Not sure [place] Tobacco smoking status Never [facility] Start: 04-03-2021 History SDOH Financial 5 [employer] Work Phone: Start: 04-03-2021 History SDOH Food Worry 1 [employer] Work Phone: Start: 04-03-2021 History SDOH Transpo rt Med 2 [employer] Work Phone: Start: *Tob[employer] Start: 1995 Sex Assigned At Female F [facility] Tobacco smoking stat NHIS Tobacco smoking consumption unknown [facility] Goals Date Patient Goal Desired Activity /State Functional Status Date Assessment Result Facility 05-10-2023 Functional Status N/A [facility] 02-06-2023 Functional status Patient at Baseline [facility] Work Phone: Mental Status Date Assessment Result Facility 02-06-2023 Cognitive function Cognitive Sta tus Patient at Baseline [facility] Work Phone: Clinical Notes 09-04-2021 to 05-19-2023 Note Date & Type Note Facility 05-19-2023 History and physical note Note Date/Time May 19, 2023 1:38pm [facility] [address] [place] [address] Gastroenterology H&P Signed Patient: Lulú Gaitan MR#: [id number] : 1995 Acct:[id number] Age/Sex: 28 / F Adm Date: 3 Loc: Room: Type: [facility] Attending Dr: Fany Ceballos MD Copies to: MD Matthew Abarca DO~ Date of Service: 05/19/2023 HISTORY & PHYSICAL: Patient's history with special attention to the cardiovascular, pulmonary systems and the current problem was reviewed with the patient immediately prior to the procedure. Present medications and doses reviewed in the EMR. Allergies and pertinent laboratory tests were also reviewedat this time in the EMR. The physical examination, as below, was then performed. Indication, assessment and HPI: 28-year-old female here for EGD for evaluation of abdominal pain and recurrent vomiting Family history of GI malignancy? No PHYSICAL EXAMINATION Mouth and Pharynx : Moist mucus membranes, normal dentition Cardiac: Regular rate, regular rhythm Pulmonary: Clear to auscultation bilaterally, no wheezing Neurological: Alert and oriented x3, no focal deficits noted Abdomen: Abdomen soft, non-tender REVIEW OF SYSTEMS Constitutional: Denies malaise, fevers Cardiovascular: Denies chest pain, palpitations Respiratory: Denies shortness of breath, wheezing Gastrointestinal: Per HPI Genitourinary: Denies dysuria, polyuria Musculoskeletal: Denies joint swelling, joint stiffness Neurological: Denies numbness, tingling Integumentary: Denies rashes, skin lesions Endocrine: Denies fatigue, weight loss Written informed consent obtained from the patient. Risks (including but not limited to perforation, infection, bloating, bleeding, need for emergent surgeryand loss of life), benefits and alternatives explained and questions answered. The patient verbalized understanding. Based on history patient is an appropriate candidate for the procedure. Fany Ceballos M.D. Documented By: Fany Ceballos MD 05/19/231337 Signed By: <Electronically signed by Fany Ceballos MD> 05/19/231337 [facility] Work Phone: 1(908) 635-836112-21-2023 [facility]* Encounter Date Diagnosis Assessment Notes Treatment Notes Treatment Clinical Notes Apr, Abnormal abdominal C T scan (ICD-10 - R93.5) Apr, Pyelonephritis of left kidney (ICD-10 - N12) Action Other 12-12-2023 Hospital Discharge instructions Patient Education 05/10/2023 11:46:46 Hematuria, Adult [...] Follow these instructions at home: Medicines Take thuy-gbd-cqkqlmk and prescription medicines only as told by your health care provider. If you were prescribed an antibiotic medicine, take it as told by your health care provider. Do notstop taking the antibiotic even if you start to feel better. Eating and drinking Drink enough fluid to keep your urine pale yellow. It is recommended that you drink 3 4 quarts (2.83.8 L) a day. If you have been diagnosed with an infection, drinking cranberry juice in addition tolarge amounts of water is recommended. Avoid caffeine, [...] or the blood stops without treatment. Take ncji-scq-etzmopt and prescription medicines only as told by your health care provider. Drink enough fluid to keep your urine pale yellow. This information is not intended to replace advice given to you by your health care provider. Make sure you discuss any questions you have with your health care provider. Document Revised: 01/14/2021 Document Reviewed: 01/14/2021 [employer] Patient Education 2022 THEMA. Follow Up Care 05/06/2023 07:59:50 With:ROLANDO DEVLIN, Rishi Ghosh, URL Address: [facility] [address] , [place] [address]- When:Within 4 Month(s) Comments:w/PVR [facility] 11-29-2023 Evaluation note* Encounter Date Diagnosis Assessment Notes Treatment Notes Treatment Clinical Notes Mar, Irritable bowel syndrome with constipation (ICD-10 - K58.1) Mar, Delayed gastric emptying (ICD-10 - K30) Mar, Vomiting (ICD-10 - R11.10) Action Other 09-15-2023 Evaluation note* Encounter Date Diagnosis [...] no improvement in 2 to 3 days Action Other 09-10-2023 Hospital Discharge instructions Additional Instructions Important Contact Information You can call [facility] at [phone] any time day or night if you have emergent questions concerning your inpatient stay and to obtain information for obtaining testing results. If at any time you are feeling an increase in your psychiatric symptoms, call your physician or behavioral healthcare provider. If any time you have thoughts of harming yourself or others contact one of the following: Call (available 20/12) Crisis Text Line (available 20/12) text 4HOPE to [phone] [facility] Hope Line (available 8 a.m. Midnight) call [phone] ([phone]) [facility] Work Phone: 1(540) 874-232109-09-2023 Progress note Author Karri Kamara [facility] February 05, 2023 12:00pm Note Date/Time February 05, 2023 12:00pm [facility] [address] [place] [address] Psychiatry Progress Note Signed Patient: Lulú Gaitan MR#: [id number] : 1995 Acct:[id number] Age/Sex: 27 / F Adm Date: 3 Loc: Room: [address] [place] [address] Type : ADM IN Attending Dr: Karri [...] explained Documented By: Karri Kamara MD 02/05/23 1150 Signed By: <Electronically signed by Karri Kamara MD> 02/05/23 1200 [facility] Work Phone: 1(192) 980-192809-08-2023 Progress note Author Karri Kamara [facility] February 04, 2023 1:43pm Note Date/Time February 04, 2023 1:44pm [facility] [address] [place] [address] Psychiatry Progress Note Signed Patient: Lulú Gaitan MR#: [id number] : 1995 Acct:[id number] Age/Sex: 27 / F Adm Date: 3 Loc: Room: [address] [place] [address] Type : ADM IN Attending Dr: Karri [...] confirmed this with the medical student as notedbelisael. Patient reported that she is feeling better. [...] <Electronically signed by Karri Kamara MD> 02/04/23 [facility] Work Phone: 1(608) 806-775409-07-2023 Miscellaneous Notes* Telephone Encounter - Viviana David - 02/03/2023 3:38 PM EDT Left VM for patient to call office to update registration and go over records needed for review prior to scheduling. * Telephone Encounter - Viviana David - 02/03/2023 3:38 PM EDT ----- Message from Rizwana Garcia Pss sent at 02/01/2023 3:13 PM EDT ----- Regarding: Delayed Gastric Emptying No patient name on file. is being referred to or the Gastroparesis clinic. Referring Physician: Dr. Matthew milton Has the patient had a Gastric Emptying Study? Yes Which facility or hospital was the Gastric Emptying Study done at (please list full name of hospital or facility)? [facility] If the patient had a gastric emptying [...] G/J Tube?No Preferred phone number for contact: [phone] [facility] History and physical note Author Karri Kamara [facility] February 03, 2023 11:58am Note Date/Time February 03, 2023 11:58am [facility] [address] [place] [address] Psychiatry H&P Signed Patient: Lluú Gaitan MR#: [id number] : 1995 Acct:[id number] Age/Sex: 27 / F Adm Date: 3 Loc: Room: [address] [place] [address] Type: ADM IN Attending Dr: Karri Kamara MD Copies to: MD Matthew Wyatt,DO~ Date of Service: 02/03/2023 HPI History of [...] States she recently saw her [facility] and was restarted on Latuda. 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 Relationships: Patient states her boyfriend and [...] feel like current medical regimen is working [facility] Medical History (Updated 02/03/23 @ 10:00 by [...] Cloudy A Urine pH 6.0 Ur Specific [place] 1.027 Urine Protein 30 H Urine Glucose [...] Color Urine Appearance Urine pH Ur Specific [place] Urine Protein Urine Glucose (UA) Urine Ketones [...] explained Documented By: Karri Kamara MD 02/03/23 0845 Signed By: <Electronically signed by Karri Kamara MD> 02/03/23 1158 [facility] Work Phone: 1(341) 396-298902-02-2023 History of Present illness Narrative* Jenna Elliott [...] 11:40 PM EST Nurse at bedside from 9730-1851. Nurse pal[pates pt's abdomen when pt feeling [...] time. Gait steady. Denies need for assistance. Y * Jenna Elliott RN - 06/30/2022 10:00 [...] at this time. [facility] [employer] Phone: 1(926) 337-495502-02-2023 Hospital Discharge instructions* Discharge Instructions* Jenna Elliott RN - 07/01/2022 12:27 AM EST OUTPATIENT DISCHARGE Dr. Miguel Aguilera [facility] Dr. Katelynn Leslie [facility] [address] [facility] [address] [facility] [address] [place] Chyna Prakash [facility] [address] [place] [address] ACTIVITY LIMITATIONS: ( x )Up [...] AND DELIVERY . documented in this encounterBON [employer] Phone: 1(839) 510-566909-14-2022 History and physical note Author Tae Natarajan [facility] February 10, 2022 5:06pm Note Date/Time February 10, 2022 5:06pm [facility] [address] [place] [address] Vascular Surgery H&P Signed Patient: Lulú Gaitan MR#: [id number] : 1995 Acct:[id number] Age/Sex: 26 / F Adm Date: 2 Loc: Room: Type: [facility] Attending Dr: Tae Natarajan MD Copies to: MD Matthew Hernandez,DO~ Date of Service: 02/10/2022 HPI History of Present Illness Chief complaint: Hematuria HPI: Ms. Gaitan is a 26 year old female being evaluated by Dr. Masrhall for recurrent gross hematuria. Other evaluation including CT scan has been negative and Dr. Marshall requested diagnostic arteriogram and venogram. [facility] Vaccinated for [facility]-19?: Yes Medical History (Updated [...] mg PO DAILY 02/10/22 [History Confirmed 02/10/22] bkvgnwftzk-dcqhazrprgaky-eeybxpoi 50 mg-300 mg-40 mg capsule (Fioricet) 1 [...] <Electronically signed by MD Tae Natarajan> 02/10/22 1708 [facility] Work Phone: 1(665) 771-665608-29-2022 Evaluation note* Encounter Date Diagnosis Assessment Notes [...] ahead with arteriogram and venogram as requested. Action Other 05-15-2022 Hospital Discharge instructions* Instructions* Christine Vazquez PA-C - 10/11/2021 Take ibuprofen dhtj-hjq-zpdhzdp 600 mg 3 times daily as needed for pain. Follow- up with your primary care provider and discuss additional testing if symptoms not improved. Return to the emergency room for any worsening symptoms. * Attachments The following attachments cannot be sent through Care Everywhere. * Pelvic Pain (Omani) documented in [facility]Ohio[facility] Work Phone: 1(115) 538-948405-03-2022 Hospital Discharge instructions Patient Education 09/29/2021 13:37:25 [...] Follow these instructions at home: Medicines Take gjti-oyx-ieuiypb and prescription medicines only as told by [...] or the blood stops without treatment. Take dipn-sph-abosatd and prescription medicines only as told by your health care provider. Drink enough fluid to keep your urine clear or pale yellow. This information is not intended to replace advice given to you by your health care provider. Make sure you discuss any questions you have with your health care provider. Document Released: 05/16/2006 Document Revised: 10/10/2019 Document Reviewed: 06/18/2017 [employer] Patient Education 2019 THEMA. Follow Up Care 09/22/2021 14:13:42 With:ROLANDO DEVLIN, Rishi Ghosh, URL Address: [facility] [address] [place] [address]- Business (1) When: Unknown [facility] 04-08-2022 Hospital Discharge instructions Patient Education [...] including vitamins, herbs, eye drops, creams, and fbps-npb-txnthkk medicines. Any problems you or family members [...] provider tells you to take them. ?Taking qgsu-fdz-inmuqdg medicines, vitamins, herbs, and supplements. Follow instructions [...] Follow these instructions at home: Medicines Take hqkj-vaq-hnqlayv and prescription medicines only as told by [...] 05/13/2001 Document Revised: 05/08/2019 Document Reviewed: 05/08/2019 Star[employer]ak Patient Education 2020 THEMA. Follow Up Care 08/07/2021 15:47:45 With:ROLANDO DEVLIN, Rishi Ghosh, URL Address: [address] [place] [address]- When: Unknown Comments:will schedule [facility]ysto [facility] Author Karri Kamara [facility] February 06, 2023 11:04am Note Date/Time February 06, 2023 11:04am [facility] [address] [place], [place] [id number] Discharge Summary Signed Patient: Lulú Gaitan MR#: [id number] : 1995 Acct:[id number] Age/Sex: 27 / F Adm Date: 3 Loc: 1S Room: 3O0798-[address]: Karri Kamara MD Copies to: [...] States she recently saw her psychiatrist at [facility] and was restarted on Latuda. 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 Ifat any time you are feeling an increase in your psychiatric symptoms, call your physician or behavioral healthcare provider. If any time you have thoughts of harming yourself or others contact one of the following: Call (available 20/12) Crisis Text Line (available 20/12) text 4HOPE to [phone] [facility] Cause.it Line (available 8 a.m. Midnight) call [phone] ([phone]) Stand Alone Forms: Work/School Release Form Prescriptions: [...] Follow Up: [facility] [Other] (fax:[phone]) FCRS [facility] Cause.it Line [Outside] Matthew Lemus DO [Primary Care Provider] - (Please contact for any medical needs or concerns) Documented By: Karri Kamara MD 02/06/23 1103 Signed By: <Electronically signed by Karri Kamara MD> 02/06/23 1104 [facility] [employer] Work Phone: Evaluation + Plan note No data available for this section [facility] evaluation + Plan note Future Appointments Appointment Date:02/05/2022 09:45:00 AM Scheduled Provider:Rishi MARSHALL MD Location:[facility] Appointment Type:URO Office Visit [facility] Evaluation + Plan note Future Appointments Appointment Date:09/27/2023 10:15:00 AM Scheduled Provider:Rishi MARSHALL MD Location:[facility] Appointment Type:URO Office Visit [facility] Evaluation note* Diagnosis Lower abdominal pain- Primary Abdominal pain, other specified site documented in this encounter [employer] Phone: evalervzio note* Diagnosis Onset Date Resolution Status Hematuria acute [facility] [employer] Work Phone: evaluation note* Diagnosis Hyperemesis- Primary Persistent vomiting Pelvic cramping Unspecified symptom associated with female genital organs documented in this encounter MARTHA RITCHIE [employer] Phone: evaluation note* Diagnosis Onset Date Resolution Status Bipolar 1 disorder acute Depression acute Major depressive disorder, recurrent acute Suicidal ideation acute [facility] [employer] Work Phone: Evaluation noteNo assessment information available [facility] [employer] Work Phone: [facility] general Narrative - Reported* Type Description Date Medical History migraine headache Medical History endometriosis Medical History PCOS Medical History borderline personality disorder Medical History bipolar Medical History anxiety Medical History chronic depression Surgical History laparoscopy x3 female Surgical History umbilical hernia repair Hospitalization History 1 [facility] 2020 Hospitalization History as a child for stomach p ain Action Other History general Narrative - Reported* Type Description Date Medical History migraine headache Medical History endometriosis Medical History PCOS Medical History borderline personality disorder Medical History bipolar Medical History anxiety Medical History chronic depression Surgical History laparoscopy x3 female Surgical History umbilical hernia repair Hospitalization History 1 [facility] 2020 Hospitalization History as a child for stomach p ain Hospitalization History LATUDA REACTION 1 [facility] 02/02/2023 Action Other Hospital Discharge instructions Additional Instructions Hold Metformin for 2 days. No heavy lifting of anything over 5 pounds. No pushing or pulling. No vigorous activity. Remove dressing in 24 hours.[facility] Work Phone: Hospital Discharge instructions Additional Instructions DISCHARGE INSTRUCTIONS FOR UPPER ENDOSCOPY WHAT TO EXPECT: - You may feel full, gassy or cramping after your procedure. In some cases, this may be from a few hours to a day. Walking may help relieve the discomfort. - Your throat may feel sore today from the scope that the doctor passed through your throat to visualize your stomach. Take a throat lozenge or suck on ice to ease the discomfort. - You may notice some streaks of blood in your sputum if the doctor has taken a biopsy. - You should begin to recover from anesthesia within 1 hour of the procedure, however may feel groggy for the next 24 hours. DO's AND DON'Ts: - Call your doctor right away if you have a hard abdomen, severe pain, vomiting or if you cough up large amounts of blood. - Call your doctor if you develop any rashes, hives or difficulty breathing. - If you take 81 mg aspirin for your heart it is safe to resume this medication. - If you take other blood thinner medications your doctor will instruct you when these can safely be resumed. - Do NOT drive for 24 hours. - Do NOT operate machinery such as power tools, lawn mowers, snow blowers, sewing machines, etc. for 24 hours. - Avoid alcoholic beverages and drugs for allergies, nerves, or sleep. - Do NOT stay alone. Do NOT leave your child unattended. - Do NOT make important personal or business decisions or sign any legal documents. - Eat solid foods and drink liquids in smaller amounts than usual until normal appetite returns. If you should experience an upset stomach, liquids high in sugar content (soda, Preston-Aid, non-acid juices) are recommended. - Do NOT smoke. - Do take it easy today. You need not stay in bed, but avoid strenuous activities such as jogging or working out. FOLLOW UP & RECOMMENDATIONS: -Notify the doctor if you have any problems. -Follow up with PCP. -Office number [phone]. 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 Advance Directives and Living Will Power of Funeral Director'S Assistant Documents on File Type Date Recorded 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 Go to [email or web address] and sign in to your [employer] account. Enter J454 in the Search Health Information box to learn more about Upper GI Endoscopy: What to Expect at Home. . 9966-0692 Breathometer. Care instructions adapted under license by [employer]. This care instruction is for use with your licensed healthcare professional. If you have questions about a medical condition or this instruction, always ask your healthcare professional. [employer] disclaims any warranty or liability for your use of this information. Content Version: 9.9.970700; Last Revised: July 19, 2012 Upper GI [...] Where can you learn more? Go to [email or web address] and sign in to your [employer] account. Enter J454 in the Search Health Information box to learn more about Upper GI Endoscopy: What to Expect at Home. . 0772-9387 Breathometer. Care instructions adapted under license by [employer]. This care instruction is for use with your licensed healthcare professional. If you have questions about a medical condition or this instruction, always ask your healthcare professional. [employer] disclaims any warranty or liability for your use of this information. Content Version: 9.9.122680; Last Revised: July 19, 2012 Upper GI [...] Where can you learn more? Go to [email or web address] and sign in to your [employer] account. Enter J454 in the [facility] Information box to learn more about Upper GI Endoscopy: What to Expect at Home. . Breathometer. Care instructions adapted under license by [employer]. This care instruction is for use with your licensed healthcare professional. If you have questions about a medical condition or this instruction, always ask your healthcare professional. [employer] disclaims any warranty or liability for your use of this information. Content Version: 9.9.186995; Last Revised: July 19, 2012 Upper GI [...] Where can you learn more? Go to [email or web address] and sign in to your [employer] account. Enter J454 in the Search Health Information box to learn more about Upper GI Endoscopy: What to Expect at Home. . 7875-2102 Breathometer. Care instructions adapted under license by [employer]. This care instruction is for use with your licensed healthcare professional. If you have questions about a medical condition or this instruction, always ask your healthcare professional. [employer] disclaims any warranty or liability for your use of this information. Content Version: 9.9.384025; Last Revised: July 19, 2012 Upper GI [...] Where can you learn more? Go to [email or web address] and sign in to your [employer] account. Enter J454 in the Search Health Information box to learn more about Upper GI Endoscopy: What to Expect at Home. . 6986-0358 Breathometer. Care instructions adapted under license by [employer]. This care instruction is for use with your licensed healthcare professional. If you have questions about a medical condition or this instruction, always ask your healthcare professional. [employer] disclaims any warranty or liability for your use of this information. Content Version: 9.9.898665; Last Revised: July 19, 2012 Upper GI [...] Where can you learn more? Go to [email or web address] and sign in to your [employer] account. Enter J454 in the Search Health Information box to learn more about Upper GI Endoscopy: What to Expect at Home. . 3403-2083 Breathometer. Care instructions adapted under license by [employer]. This care instruction is for use with your licensed healthcare professional. If you have questions about a medical condition or this instruction, always ask your healthcare professional. [employer] disclaims any warranty or liability for your use of this information. Content Version: 9.9.696204; Last Revised: July 19, 2012 Upper GI [...] the day after the test, use an xgue-urz-lqlhdwy spray to numb your throat. Follow-up care [...] Where can you learn more? Go to [email or web address] and sign in to your [employer] account. Enter J454 in the Search Health Information box to learn more about Upper GI Endoscopy: What to Expect at Home. If you do not have an account, please click on the Sign Up Now link. Current as of: January 07, 2019Content Version: 12.4 Breathometer. Care instructions adapted under license by [employer]. If you have questions about a medical condition or this instruction, always ask your healthcare professional. [employer] disclaims any warranty or liability for your use of this information. documented in this encounter* Attachments The following attachments cannot be sent through Care Everywhere. * URI (Upper Respiratory Infection): Viral ([place]mani) documented in this encounter Summary Purpose Family [...] SCAN W EJECTION FRACTION Toño Blanc MD [address] [place] [address] Chief Complaint and Reason for Visit Chief Complaint Gross Hematuria, Fla nk Pain Reason for Visit Hematuria Chief Complaint Mental eval Reason for Visit Bipolar 1 disorder Depression Major depressive disorder, recurrent Suicidal ideation Chief Complaint K58.1 k30 r11.10 Chief Complaint K58.1 k30 r11.10 Vomiting Additional Source Comments Reason for Visit (unrecogniz ed section and content) Status Reason Specialty Diagnoses / Procedures Re ferred By Contact Referred To Contact Diagnoses Dysphagia DX DYSPHAGIA Procedures LA ESOPHAGOGASTRODUODENOSCOPY TRANSORAL DIAGNOSTIC EGD ESOPHAGOGASTRODUODENOSCOPY Toño Blanc MD [address] [place] [address] [facility] Reason Comments Cough pt states onset last week. PT states she is taking Prednisone and Keflex for a sinus infection Status Reason Specialty Diagnoses / Procedures Referred By Contact Referred To Contact Not Required - [facility] Diagnoses Nausea with vomiting, unspecified Procedures HC NM HEPATOBILIARY IMAGING W PHARM Toño Blanc MD [address] [place] [address] [facility] Nuclear Medicine [address] [place] [id number] Reason Comments Abdominal Cramping onset this am Vaginal Bleeding spotting onset at approx 1200, patient states she thinks she might be Reason Comments Abdominal Pain Started earlier toda y, states having contraction like pain, was leaking clear fluid, 17 weeks , has hyperemesis and on Zofran pump Reason Comments Appointment INFORMATION SOURCE (unrecogn ized section and content) DATE CREATED AUTHOR 10/15/2019 [facility] DATE CREATED AUTHOR AUTHOR'S ORGANIZ ATION 03/07/2020 [facility] DATE CREATED AUTHOR AUTHOR'S ORGANIZ ATION 07/27/2021 [facility] DATE CREATED AUTHOR AUTHOR'S ORGANIZ ATION 09/24/2022 [facility] DATE CREATED AUTHOR AUTHOR'S ORGANIZ ATION 02/12/2023 [facility] DATE CREATED AUTHOR AUTHOR'S ORGANIZ ATION 03/12/2023 [facility] DATE CREATED AUTHOR AUTHOR'S ORGANIZ ATION 05/27/2023 [facility] DATE CREATED AUTHOR AUTHOR'S ORGANIZ ATION 05/31/2023 [facility] DATE CREATED AUTHOR AUTHOR'S ORGANIZ ATION 06/05/2023 [facility] DATE CREATED AUTHOR AUTHOR'S ORGANIZ ATION 06/13/2023 [facility] EPIC Scheduled Active and Recently Administ ered Medications [...] RN)2122 (Stopped - Provider: Rachael Lynn, KATHERINE) cefTRIAXone (ROCEPHIN) 1,000 mg in sodium chloride 0.9 % 50 mL IVPB (mini-bag) (COMPLETED) 1,000 mg, IntraVENous, ONCE, 1 dose, On Tue06/30/22 at 2030, Antimicrobial Indications: Urinary Tract Infection 2024 (New Bag - Provider: Rachael Lynn RN)2122 (Stopped - Provider: Rachael Lynn RN) promethazine (PHENERGAN) tablet 25 mg (COMPLETED) 25 mg, Oral, ONCE, 1 dose, On Tue06/30/22 at 1915 1917 (Given - Provider: Soha Lynn RN) Care Teams (unrecognized sec tion and content) Team Status: Active Member Role Status Dates Matthew Lemus DO Primary Care Provider Active Team Status: Inactive Member Role Status Dates Matthew Lemus DO Primary Care Provider Active Matthew Leslie MD Emergency Provider Active Karri Kamara MD Admit Provider, Attending Provider Active [employer] Worker Relationship Specialty [place] [address] PCP - General Internal Medicine 10/11/21 [employer] Worker Relationship Specialty Start Date [place] [phone] PCP - General Internal Medicine 10/11/21 Team Status: Inactive Member Role Status Dates Matthew Lemus , DO Primary Care Provider Active Tae Natarajan MD Attending Provider Active [employer] Worker Relationship Specialty Start Date End Date Bridgette Lewis MD [facility] [place] [address] PCP - General Internal Medicine 06/30/22 [employer] Worker Relationship Specialty Start Date End Date Agustin Ramos [address] [place] [phone] PCP - General 01/27/04 Team Status: Inactive Member Role Status Dates Matthew Lemus , DO Primary Care Provider Active Fany Ceballos [...] or prosecute any alcohol or drug abuse patient.[facility] FOR RECORDS PERTAINING TO PATIENTS WHO [...] BE BASED ON THE PRIMARY CLINICAL RECORDS. [facility]. provides no warranty or guarantee of the accuracy or completeness of information in this document.
== END 2023-06-21 08:59 | disposition home or self-care (01) ==
LOC: US 08:58
PROVIDERS: PCP Internal Medicine; Visit Provider Obstetrics & Gynecology
DX: R10.2 Pelvic and perineal pain (principal); N94.89 Other specified conditions associated with female genital organs and menstrual cycle
CPT/HCPCS: 76830; 76856

== ENCOUNTER 2023-07-04 09:27 | Outpatient (OUT) | payer OTHER, SELFPAY ==
--- OUTSIDE RECORDS SUMMARY | 2023-07-04 09:35 | XMS_ITS | CCD ---
Author Name Unknown Address [address] [place] [address] Organization [facility] Care Team Providers Care [place] Supervisor Name Role Phone Lisseth Johnson Primary Care Provider [phone] TOÑO BLANC Admitting Unavailable TOÑO BLANC Attending Unavailable LISSETH JOHNSON Primary Care Unavailable TOÑO BLANC Referring Unavailable LISSETH JOHNSON Primary Care Unavailable Lisseth Johnson Primary Care Provider [phone] CARRILLO RUBIO Referring Unavailable LISSETH JOHNSON Primary Care [...] DR PEÑA Admitting Unavailable LETY ., DR EPÑA Attending Unavailable LETY ., DR PEÑA Consulting [...] Attending Unavailable LUPIS ., ERNESTINE Consulting Unavailable YUJULIEN, DR CASTRO Primary Care Unavailable LETY ., [...] Admitting Unavailable FABY . AUDELIA Attending Unavailable YUJULIEN, DR CASTRO Primary Care Unavailable PAY ., DR THURMAN Consulting Unavailable JEFERSON, DR CASTRO Attending Unavailable JEFERSON, DR CASTRO Admitting Unavailable VICKY .WM Consulting UnavailISIDRO Manrique Consulting Unavailable GOVIND JOHNSTON Consulting Unavailable Agustin Ramos Primary Care Provider DO Matthew Lemus Primary Care Provider MD Matthew Leslie Emergency Provider MD Karri Kamara Admit Provider MD Karri Kamara Attending Provider [phone] Sarah Anderson Unavailable CASEY DAVIDSON Referring Unavailable BRIDGETTE LEWIS Primary Care Unavailable BRIDGETTE LEWIS Primary Care Unavailable DEREJE VALERIO Admitting Unavailable DEREJE VALERIO Attending Unavailable VINOD CLARK Attending Unavailable BRIDGETTE LEWIS Primary Care Unavailable Asaad, Imad Unavailable DO Matthew Lemus Primary Care Provider [phone] MD Fany Ceballos Attending Provider Rishi MARSHALL Attending Unavailable Rishi MARSHALL Attending Unavailable BRIDGETTE LEWIS Primary Care Unavailable Rishi MARSHALL Attending Unavailable BRIDGETTE LEWIS Primary Care Unavailable Asaad, Imedie Attending Unavailable Asaad, Imad Admitting Unavailable Mariah, Matthew Primary Care Unavailable Asaad, Imad Admitting Unavailable Karines, Matthew Primary Care Unavailable Asaad, Imad Attending Unavailable Yuhas, Matthew Primary Care Unavailable Casper Arteaga Attending Unavailab le Casper Arteaga Admitting Unavailab le Mariah, Matthew Primary Care Unavailable Karri Kamara Attending Unavailable Karri Kamara Admitting Unavailable JORGE LAMAS Attending Unavailable MARIAHMATTHEW L Referring Unavailable MARIAHMATTHEW L Primary Care Unavailable CASEY DAVIDSON Attending Unavailable CASEY DAVIDSON Attending Unavailable Allergies Allergy Classification Reported Allergen(s) Allergy Type Date of Onset Reaction(s) Facility (13 sources) bee venom Propensity to adverse reactions to drug 5 [place], [place] (14 sources) Erythromycin; Translations: [ERYTHROMYCIN] Drug Allergy 5 [place], [place] (20 sources) Azithromycin; Translations: [azithromycin] Drug Allergy 9 Unknown (qualifier value) [facility] (4 sources) Bee pollen; Translations: [bee pollen] Drug Allergy Edema (finding) [facility] (4 sources) Bee/Wasp/Ant venom; Translations: [Bee Stings] Drug allergy Unknown (qualifier value) [facility] (14 sources) lamoTRIgine; Translations: [Lamictal] Drug Allergy [facility] (10 sources) lamoTRIgine; Translations: [LAMOTRIGINE] Drug Allergy 2 [facility] (1 source) Azithromycin Drug Allergy [facility] (2 sources) bee venom Drug allergy (disorder) [facility] (1 source) lamoTRIgine Drug Allergy [facility] (5 sources) lurasidone; Translations: [LURASIDONE] Drug Allergy 3 SUICIDAL, Depression [facility] (1 source) Azithromycin; Translations: [Zithromax Z-Oscar] Drug Allergy [facility] (1 source) Azithromycin Drug Allergy 3 [facility] (1 source) lamoTRIgine Drug Allergy 3 [facility] (1 source) lurasidone Drug Allergy 3 [facility] (1 source) BEE VENOM PROTEIN (HONEY [...] Vitamin D Cholecalciferol (VITAMIN D) 50 MCG (1999 UT) CAPS capsule Take by mouth 0 [...] Start: 02-02-2023 take 1 tablet by marion once daily in the morning Drospirenone-Ethinyl Estradiol [...] 09/04/21 Status: Ordered take 1 capsule by [facility] once daily in the morning phentermine 37.5 [...] Daily, # 30 cap(s), Refills(s) 0, Pharmacy: [facility]/pharmacy #[id number], 165, cm, 12/17/21 8:42:00 EDT, Height/Length [...] 18, 2023 2:02pm take 1 capsule by [facility] at bedtime Geodon 40 MG 1 capsule with food Orally HS Active take 1 capsule by mo [facility] every twelve hours Geodon 20 MG 1 [...] 1 capsule by mouth every four hours Zejitjoyvd-Dkqdyptyxykdd-Mgni (Fioricet) 50-300-40 mg Capsule Discontinued 1 CAP [...] Status: Ordered take 3 tablets by mo ut once daily ARIPiprazole (ABILIFY) 5 MG tablet [...] procedure, # 2 tab(s), Refills(s) 0, Pharmacy: [facility]/pharmacy #[id number], 165, cm, 12/17/21 8:42:00 EDT, Height/Length [...] procedure., # 2 cap(s), Refills(s) 0, Pharmacy: [facility] [id number], 165, cm, 09/04/21 9:50:00 EDT, [...] symptomatic., # 2 tab(s), Refills(s) 0, Pharmacy: [facility]/pharmacy #[id number], 165, cm, 12/17/21 8:42:00 EDT, Height/Length [...] (7 sources) Atypical Antipsychotic Start: 02-02-2023 End: 09-09-2023 take 60 mg by mouth once daily [...] 06-17-2022 Episodic Other aftercare (1 source) Other alf (current) drug therapy; Translations: [OTH HALF-WAY CURRENT DRUG THERAPY] Onset: 09-20-2022 Episodic Other [...] CT Reporton 05-25-2023 RAD - CT Report [id number] #1.00TIFF Normal [facility] HCG ( test) IA.rapi d Ql (U)Ordered By: Fany Ceballos on 05-19-2023 HCG ( test) Ql (U) Negative [facility] HCG,Urineon 05-19-2023 Beta HCG ( test) Ql (U) Negative Normal [facility] Comment on above: Result Comment: PERF ORMED BY: [address] [address] PATHOLOGIST TEST ENGINE EVALUATOR MOISES VELASCO M.D. Performed By: #### U HCG #### [address] [place] [address] [facility] 05-19-2023 L Specimen: [id number] Received: 05/20/23 Status: RUDY Dover Num: [id number] Spec Type: Surgical Subm Dr: Fany Ceballos MD Tissues: A Duodenum - Biopsy (DUODENAL BX) B Esophagus Biopsy (ESOPHAGUS BX) Procedures: KATELYNN/Mary Anne Augustin/Jaren L4/2 Age/ Patient Sex Location Account Attending Physician Lulú Gaitan 28/F [id number] Fany Ceballos MD SPEC NUM: [id number] RECD: 05/20/23 STATUS: RUDY DOVER NUM: [id number] PHILIP: 05/19/23- [facility] DR: Fany Ceballos MD ENTERED: 05/20/23 [facility] DR: SPEC TYPE: Surgical DEPT: S ORDERED: [...] submitted in one cassette labeled B1. Specimen: [id number] Received: 05/20/23 Status: RUDY [place] Num: [id number] Spec Type: Surgical Subm Dr: Fany Ceballos MD Tissues: A Duodenum - Biopsy (DUODENAL BX) B Esophagus Biopsy (ESOPHAGUS BX) Procedures: HE/4, Gross/Micro L4/2 Patient: Lulú Gaitan [id number] (Continued) Specimen: [id number] Received: 05/20/23 (Continued) Signed (signature on file) Cielo Trimble MD 05/24/232300 Specimen: [id number] Received: 05/20/23 Status: RUDY [place] Num: [id number] Spec Type: Surgical Subm Dr: Fany Ceballos MD Tissues: A Duodenum - Biopsy (DUODENAL BX) B Esophagus Biopsy (ESOPHAGUS BX) Procedures: KATELYNN/Demetria, Gross/Micro L4/2 Patient: Lulú Gaitan [id number] (Continued) Specimen: [id number] Received: 05/20/23 (Continued) Microscopic Description A. Two H E slides reviewed. The microscopic examination confirms the diagnosis. B. Two H E slides reviewed. The microscopic examination confirms the diagnosis. CPT Codes 57420x3 Specimen: [id number] Received: 05/20/23 Status: RUDY Lopezhetal Num: [id number] Spec Type: Surgical Subm Dr: Fany Ceballos MD Tissues: A Duodenum - Biopsy (DUODENAL BX) B Esophagus Biopsy (ESOPHAGUS BX) Procedures: HE/4, Gross/Micro L4/2 Patient: Lulú Gaitan [id number] (Continued) Signed (signature on file) Cielo Trimble MD 05/24/23 [address] [facility] [address] abdomen pelvis w [facility] CT abdomen pelvis w [facility] [place] [address] CT Scan Report Signed Patient: Lulú Gaitan MR#: [id number] 4 : 1995 Acct:[id number] Age/Sex: 28 / F ADM Date: 05/12/23 Loc: CT Room: Type: [facility] Attending Dr: Fany Ceballos MD Copies to: [...] Pham Jr., D.O.05/12/2023 10:29 AM Dictation Location: [place] [address] Transcribed By: [facility] 05/12/23 1029 Dictated By: Samy Pham Jr, DO 05/12/23 1023 Signed By: 05/12/23 1029 [facility] Consent for Procedure/Surger [facility] 05-11-2023 Consent for Procedure/Surgery [id number] 6#1.00TIFF [facility] Ambulatory Visit Summaryon 1 07-11-2022 Ambulatory Visit Summary LLUÚ GAITAN :1995 Visit Date:05/10/2023 Ambulatory Visit Instructions [...] DEVLIN, Rishi Ghosh Where: [facility] Patient Educationon 05-10-20 Patient Education Urology Hematuria, [...] these instructions at home: Medicines ? Take htzp-mpg-daphtmj and prescription medicines only as told by [...] the blood stops without treatment. ? Take vyxw-vnr-knypokm and prescription medicines only as told by your health care provider. ? Drink enough fluid to keep your urine pale yellow. This information is not intended to replace advice given to you by your health care provider. Make sure you discuss any questions you have with your health care provider. Document Revised: 01/14/2021 Document Reviewed: 01/14/2021 [employer] Patient Education ? 2022 [employer]. [facility] Urology Office/Clinic Noteon 05-10-2023 Urology Office/Clinic [...] Bactrim x 3 days empirically. went to [facility] next day bc blood persisted. CT [...] [facility] [address], [place] [address]- Additional Instructions: w/PVR Patient Education Hematuria, Adult I, Johana De Jesus , personally scribed for Dr. Marshall on 05/10/2023 11:52:58. . Portions of this record may have been created with voice recognition artificial intelligence software, specifically [employer], [employer] and or [employer]. Substitutions may have occurred due to the [...] Daily busPIRon (more content not included)... Normal [facility] Comment on above: Result Comment: Elec tronically Signed By: Rishi MARSHALL MD\.br\Date and Time Signed: 05/10/23 11:55 EST\.br\Electronically Co-Signed By: Johana De Jesus\.br\Date and Time Co-Signed: 05/10/23 11:53 EST RAD - MISCon 04-26-2023 RAD - MISC [id number]# 1.00TIFF Normal [facility] Lab Reportson 04-15-2023 Lab Reports [id number]# 1.00TIFF Normal [facility] Operative Reporton Operative Report [id number] #1.00TIFF Normal [facility] Lab Reportson 04-08-2023 Lab Reports [id number] #1.00TIFF Normal [facility] Insurance Correspondenceon 1 05-30-2022 Insurance Correspondence [id number] 4#1.00TIFF [facility] Consent for Procedure/Surger yon 03-24-2023 Consent for Procedure/Surgery [id number]#1.00TIFF Normal [facility] CT ABDOMEN PELVIS W IV CONTR [...] Jennie Hernández MD 03/11/23 Final result Normal [facility] Cult,Urineon 03-11-2023 Cult,Urine Specimen Description .CLEAN CATCH URINE Culture NO SIGNIFICANT GROWTH Report Status FINAL 03/11/2023 Normal [facility] Comment on above: Performed By: #### U RC #### [address] [id number] Professional Services Specialist: Omar Segundo MD [address] [place] [address] Professional Services Specialist: Cholo Alicea MD CBC with Diffon 03-10-2023 Abs. Basophil 0.05 k/uL Normal 0.00-0.20 [facility] Comment on above: Performed By: #### C ANTONIA LIU, CK #### [address] [place] [address] Professional Services Specialist: Cholo Alicea MD Abs.Imm.Granulocyte <0.03 Normal 0.00-0.30 [facility] Comment on above: Performed By: #### C ANTONIA LIU, CK #### [address] [place] [address] Professional Services Specialist: Cholo Alicea MD Abs.Neutrophil (Seg) 3.36 k/uL Normal 1.50-8.10 [facility] Comment on above: Performed By: #### C ANTONIA LIU, CK #### [address] [place], [facility]83 Professional Services Specialist: Cholo Alicea MD Basophils/100 WBC (Bld) 1 % Normal 0-2 M [facility] Comment on above: Performed By: #### C DP, CP, CK #### [address] [place], [place] [address]83 Professional Services Specialist: Cholo Alicea MD Eosinophils (Bld) [#/Vol] 0.05 10*3/uL Normal 0.00-0.44 [facility] Comment on above: Performed By: #### C DP, CP, CK #### [address] [place] [address] Professional Services Specialist: Cholo Alicea MD Eosinophils/100 WBC (Bld) 1 % Normal 1-4 [facility] Comment on above: Performed By: #### C DP, CP, CK #### [address] [place], [facility]83 Professional Services Specialist: Cholo Alicea MD Erythrocyte distribution width (RBC) [Ratio] 11.9 % Normal 11.8-14.4 [facility] Comment on above: Performed By: #### C DP CP, CK #### [address] [place], [facility]83 Professional Services Specialist: Cholo Alicea MD Hematocrit (Bld) [Volume fraction] 37.5 % Normal 36.3-47.1 [facility] Comment on above: Performed By: #### C DP, CP, CK #### [address] [place], [facility]83 Professional Services Specialist: Cholo Alicea MD Hemoglobin (Bld) [Mass/Vol] 12.9 g/dL Normal 11.9-15.1 [facility] Comment on above: Performed By: #### C DP, CP, CK #### [address] [place], [facility]83 Professional Services Specialist: Cholo Alicea MD Immature granulocytes/100 WBC (Bld) 0 % Normal 0 [facility] Comment on above: Performed By: #### C DP, CP, CK #### [facility] [address] [place], [place] [address] Professional Services Specialist: Cholo Alicea MD Lymphocytes (Bld) [#/Vol] 2.79 10*3/uL Normal 1.10-3.70 [facility] Comment on above: Performed By: #### C DP, CP, CK #### [address] [place], [facility]83 Professional Services Specialist: Cholo Alicea MD Lymphocytes/100 WBC (Bld) 42 % Normal 24-43 [facility] Comment on above: Performed By: #### C ALEXA, CP, CK #### [address] [place], [facility]60 ( Professional Services Specialist: Cholo Alicea MD MCH (RBC) [Entitic mass] 30.4 pg Normal 25.2-33.5 [facility] Comment on above: Performed By: #### C ALEXA, CP, CK #### [address] [place], [facility]83 Professional Services Specialist: Cholo Alicea MD MCHC (RBC) [Mass/Vol] 34.4 g/dL Normal 28.4-34.8 [facility] Comment on above: Performed By: #### C DP, CP, CK #### [address] [place], [facility]83 Professional Services Specialist: Cholo Alicea MD MCV (RBC) [Entitic vol] 88.2 fL Normal 82.6-102.9 M [facility] Comment on above: Performed By: #### C ALEXA, CP, CK #### [address] [place], [facility]83 Professional Services Specialist: Cholo Alicea MD Monocytes (Bld) [#/Vol] 0.46 10*3/uL Normal 0.10-1.20 [facility] Comment on above: Performed By: #### C ANTONIA LIU, CK #### [facility] [address] [place], [place] [id number] Professional Services Specialist: Cholo Alicea MD Monocytes/100 WBC (Bld) 7 % Normal 3-12 M [facility] Comment on above: Performed By: #### C ANTONIA LIU, CK #### [facility] [address] [place] [address] Professional Services Specialist: Cholo Alicea MD Neutrophil (Seg) 49 % Normal 36-65 [facility] Comment on above: Performed By: #### C ANTONIA LIU, CK #### [facility] [address] [place], [place] [id number] Professional Services Specialist: Cholo Alicea MD NRBC Automated 0.0 per 100 WBC Normal 0.0 [facility] Comment on above: Performed By: #### C ANTONIA LIU, CK #### [facility] [address] [place], [place] [address] Professional Services Specialist: Cholo Alicea MD Platelet mean volume (Bld) [Entitic vol] 10.5 fL Normal 8.1-13.5 [facility] Comment on above: Performed By: #### C ANTONIA LIU, CK #### [facility] [address] [place] [address] Professional Services Specialist: Cholo Alicea MD Platelets (Bld) [#/Vol] 320 10*3/uL Normal 138-453 [facility] Comment on above: Performed By: #### C ANTONIA LIU, CK #### [facility] [address] [place], [place] [id number] Professional Services Specialist: Cholo Alicea MD RBC (Bld) [#/Vol] 4.25 10*6/uL Normal 3.95-5.11 [facility] Comment on above: Performed By: #### C DP, CP, CK #### [facility] [address] [place], [place] [address] Professional Services Specialist: Cholo Alicea MD WBC (Bld) [#/Vol] 6.7 10*3/uL Normal 3.5-11.3 [facility] Comment on above: Performed By: #### C DP, CP, CK #### [facility] [address] [place], [place] [address]83 Professional Services Specialist: Cholo Alicea MD Comp Metabolic Profon 2022 Albumin [Mass/Vol] 4.6 g/dL Normal 3.5-5.2 [facility] Comment on above: Performed By: #### C DP, CP, CK #### [facility] [address] [place] [address] Professional Services Specialist: Cholo Alicea MD Albumin/Glob Ratio 1.5 Normal 1.0-2.5 [facility] Comment on above: Performed By: #### C DP, CP, CK #### [facility] [address] [place], [place] [id number] Professional Services Specialist: Cholo Alicea MD Alkaline Phos 72 U/L Normal 35-104 [facility] Comment on above: Performed By: #### C DP, CP, CK #### [facility] [address] [place], [place] [address] Professional Services Specialist: Cholo Alicea MD ALT [Catalytic activity/Vol] 42 U/L High 5-33 [facility] Comment on above: Performed By: #### C DP, CP, CK #### [facility] [address] [place], [place] [address]83 Professional Services Specialist: Cholo Alicea MD Anion gap [Moles/Vol] 11 mmol/L Normal 9-17 [facility] Comment on above: Performed By: #### C DP, CP, CK #### [facility] [address] [place], [place] [address]83 Professional Services Specialist: Cholo Alicea MD AST [Catalytic activity/Vol] 31 U/L Normal <32 [facility] Comment on above: Performed By: #### C DP, CP, CK #### [facility] [address] [place], [place] [address] Professional Services Specialist: Cholo Alicea MD Bilirubin [Mass/Vol] 0.4 mg/dL Normal 0.3-1.2 [facility] Comment on above: Performed By: #### C DP, CP, CK #### [facility] [address] [place], [place] [address] Professional Services Specialist: Cholo Alicea MD BUN/CRE Ratio 10 Normal 9-20 [facility] Comment on above: Performed By: #### C DP, CP, CK #### [facility] [address] [place], [place] [address]83 Professional Services Specialist: Cholo Alicea MD Calcium [Mass/Vol] 10.4 mg/dL Normal 8.6-10.4 [facility] Comment on above: Performed By: #### C DP, CP, CK #### [facility] [address] [place], [place] [address]83 Professional Services Specialist: Cholo Alicea MD Chloride [Moles/Vol] 101 mmol/L Normal 98-107 [facility] Comment on above: Performed By: #### C DP, CP, CK #### [facility] [address] [place], [place] [address] Professional Services Specialist: Cholo Alicea MD CO2 [Moles/Vol] 26 mmol/L Normal 20-31 [facility] Comment on above: Performed By: #### C DP, CP, CK #### [facility] [address] [place], [place] [address]383 Professional Services Specialist: Cholo Alicea MD Creatinine [Mass/Vol] 0.9 mg/dL Normal 0.5-0.9 [facility] Comment on above: Performed By: #### C ANTONIA LIU, CK #### [address] [place] [address] Professional Services Specialist: Cholo Alicea MD GFR/1.73 sq M.predicted among non-blacks MDRD (S/P/Bld) [Vol rate/Area] mL/min/{1.73_m2} Normal >60 [facility] Comment on above: Result Comment: These [...] renal tubular secretion. Performed By: #### C ANTONIA LIU, CK #### [address] [place] [address] Professional Services Specialist: Cholo Alicea MD Glucose [Mass/Vol] 97 mg/dL Normal 70-99 [facility] Comment on above: Performed By: #### C ANTONIA LIU, CK #### [address] [place] [address] Professional Services Specialist: Cholo Alicea MD Potassium [Moles/Vol] 4.2 mmol/L Normal 3.7-5.3 [facility] Comment on above: Performed By: #### C ALEXA CP, CK #### [address] [place] [address] Professional Services Specialist: Cholo Alicea MD Protein [Mass/Vol] 7.6 g/dL Normal 6.4-8.3 [facility] Comment on above: Performed By: #### C ALEXA CP, CK #### [address] [place] [address] Professional Services Specialist: Cholo Alicea MD Sodium [Moles/Vol] 138 mmol/L Normal 135-144 [facility] Comment on above: Performed By: #### C DP, CP, CK #### [facility] [address] [place] [address] Professional Services Specialist: Cholo Alicea MD Urea nitrogen [Mass/Vol] 9 mg/dL Normal 6-20 [facility] Comment on above: Performed By: #### C DP, CP, CK #### [facility] [address] [place] [address] Professional Services Specialist: Cholo Alicea MD Creatine Kinaseon 1 CK [Catalytic activity/Vol] 51 U/L Normal 26-192 [facility] Comment on above: Performed By: #### C DP, CP, CK #### [facility] [address] [place] [address] Professional Services Specialist: Cholo Alicea MD HCG, ,Urineon 03-107 Beta HCG ( test) Ql (U) Negative Normal NEG [facility] Comment on above: Result Comment: Spec imens with hCG levels near the threshold of the test (25 mIU/mL) may give a negative or indeterminate result. In such cases, another test should be performed with a new specimen in 48-72 hours. If early is suspected clinically in this setting, correlation with quantitative serum b-hCG level is suggested. [facility] has confirmed the use of plasma for this test. This has not been cleared or approved by the U.S. Food and Drug Administration. The FDA has determined that such clearance is not necessary. Performed By: #### U HCG, UAMIC #### [facility] [address] [place] [address] [place] [address] Professional Services Specialist: Cholo Alicea MD Urinalysis w/ Microon 6 Bacteria TRACE Abnormal NONE [facility] Comment on above: Performed By: #### L IP, CDP, CP #### [facility] [address] [place] [id number] Professional Services Specialist: Cholo Alicea MD Bilirubin, SemiQt,Ur Negative Normal NEG [facility] Comment on above: Performed By: #### L IP, CDP, CP #### [facility] [address] [place], [place] [address]83 Professional Services Specialist: Cholo Alicea MD Blood, Urine Negative Normal NEG [facility] Comment on above: Performed By: #### L IP, CDP, CP #### [facility] [address] [place], [place] [address] Professional Services Specialist: Cholo Alicea MD Clarity (U) Clear Normal CLEAR [facility] Comment on above: Performed By: #### L IP, CDP, CP #### [facility] [address] [place] [address] Dr[place], [place] 7[address]83 Professional Services Specialist: Cholo Alicea MD Color (U) Yellow Normal YEL [facility] Comment on above: Performed By: #### L IP, CDP, CP #### [address] [address] [place], [place] [id number] Professional Services Specialist: Cholo Alicea MD Epithelial cells LM Ql (Urine sed) 0 TO 2 Normal 0-25 [facility] Comment on above: Performed By: #### L IP, CDP, CP #### [facility] [address] [place] [address] [place] [place], [place] [id number] Professional Services Specialist: Cholo Alicea MD Glucose Ql (U) Negative Normal NEG [facility] Comment on above: Performed By: #### L IP, CDP, CP #### [facility] [address] [place], [place] [id number] Professional Services Specialist: Cholo Alicea MD Ketones Ql (U) Negative Normal NEG [facility] Comment on above: Performed By: #### L IP, CDP, CP #### [facility] [address] [place] [address] [place], [place] [id number] Professional Services Specialist: Cholo Alicea MD Leukocyte esterase Test strip Ql (U) Negative Normal NEG [facility] Comment on above: Performed By: #### L IP, CDP, CP #### [address] [place], [place] [id number] Professional Services Specialist: Cholo Alicea MD Nitrite,Ur Negative Normal NEG [facility] Comment on above: Performed By: #### L IP, CDP, CP #### [facility] [address] [place] [address] [place] [place], [place] [id number] Professional Services Specialist: Cholo Alicea MD PH,Ur 7.5 Normal 5.0-9.0 [facility] Comment on above: Performed By: #### L IP, CDP, CP #### [address] [place], [place] [id number] Professional Services Specialist: Cholo Alicea MD Protein Ql (U) Negative Normal NEG [facility] Comment on above: Performed By: #### L IP, CDP, CP #### [address] [place], [place] [id number] Professional Services Specialist: Cholo Alicea MD Spec. Carver,Ur 1.010 Normal 1.010-1.020 [facility] Comment on above: Performed By: #### L IP, CDP, CP #### [address] [place], [place] [id number] Professional Services Specialist: Cholo Alicea MD Urine RBC's None Normal 0-2 [facility] Comment on above: Performed By: #### L IP, CDP, CP #### [address] [place], [place] [id number] Professional Services Specialist: Cholo Alicea MD Urine WBC's 0 TO 2 Normal 0-5 [facility] Comment on above: Performed By: #### L IP, CDP, CP #### [address] [place] [address] Professional Services Specialist: Cholo Alicea MD Urobilinogen,Ur Normal Normal 0.0-1.0 [facility] Comment on above: Performed By: #### L IP, TATA, CP #### [facility] [address] [place] [address] Professional Services Specialist: Cholo Alicea MD COVID + FLU Quick Testingon 02-11-2023 SARS-CoV-2 (COVID-19) RNA ALEKSANDER+probe Ql (Unsp spec) Negative [employer] Other COVID + FLU Quick Testing Negative [employer] Other Quick Strepon 02-11-2023 S. pyogenes Org specific cx Ql (Throat) Negative [employer] Other Quick Strep [employer] Other [employer] 02-03-2023 CNPN Telephone (GASTSP) LULÚ GAITAN ([id number]) 1995 F Date Time Provider Department 02/03/23 [facility] During your visit today, we recorded the [...] list full name of hospital or facility)? [facility] If the patient had a gastric [...] G/J Tube?No Preferred phone number for contact: [phone] ? Viviana David 02/03/2023 3:38 PM Signed Left VM for patient to call office to update registration and go over records needed for review prior to scheduling. Viviana David 02/08/2023 4:12 PM Signed Updated patient information. Patient will have referral and GES faxed to office for review. Viviana David 02/09/2023 7:45 AM Signed GES is in scanned documents ready for review. Christine Macias, 02/09/2023 6:11 PM Signed This was read [...] Status:Closed by VIVIANA DAVID on 02/04/23 Normal [facility] ECG 12 lead ECGon 02-03-2023 ECG 12 lead ECG [facility] [place] [address] Electrocardiograph Report Signed Patient: Lulú Gaitan MR#: [id number] 4 : 1995 Acct:[id number] Age/Sex: 27 / F ADM Date: 02/02/23 Loc: Room: [address] [place] [address] Type: ADM IN Attending Dr: Karri Kamara [...] Charles Mauro MD 0 02/04/23 1319 Normal [facility] Alanine aminotransferase [En zymatic activity/volume] in Serum or PlasmaOrdered By: Matthew Leslie on 02-02-2023 ALT [Catalytic activity/Vol] 38 U/L 7-52 [facility] Albumin [Mass/volume] in Ser um or Plasma by Bromocresol green (BCG) dye binding methoOrdered By: Matthew Leslie on 02-02-2023 Albumin BCG dye [Mass/Vol] 4.6 g/dL 3.5-5.7 [facility] Alkaline phosphatase [Enzyma tic activity/volume] in Serum or PlasmaOrdered By: Matthew Leslie on 02-02-2023 ALP [Catalytic activity/Vol] 54 U/L 34-104 [facility] Amphetamine Screen Ql (U)Ord ered By: Matthew Leslie on 02-02-2023 Amphetamines Ql (U) Negative Negative [facility] Aspartate aminotransferase [ Enzymatic activity/volume] in Serum or PlasmaOrdered By: Matthew Leslie on 02-02-2023 AST [Catalytic activity/Vol] 32 U/L 13-39 [facility] Automated erythrocytes count in urine sediment (number/area)Ordered By: Matthew Leslie on 02-02-2023 RBC Auto (Urine sed) [#/Area] 10-19 [HPF] 0-4 [facility] Automated leukocytes count i n urine sediment (number/area)Ordered By: Matthew Leslie on 02-02-2023 WBC Auto (Urine sed) [#/Area] 10-19 [HPF] 0-4 [facility] Automated urine hyaline cast s count (number/volume)Ordered By: Matthew Leslie on 02-02-2023 Hyaline casts Auto (U) [#/Vol] 0-1 [LPF] 0-1 [facility] Barbiturates [Presence] in U rine by Screen methodOrdered By: Matthew Leslie on 02-02-2023 Barbiturates Screen Ql (U) Negative Negative [facility] Basophils Auto (Bld) [#/Vol] Ordered By: Matthew Leslie on 02-02-2023 Basophils (Bld) [#/Vol] 0.1 10*3/uL 0.0-0.2 [facility] Basophils/100 WBC Auto (Bld) Ordered By: Matthew Leslie on 02-02-2023 Basophils/100 WBC (Bld) 0.9 % . [facility] Benzodiazepines Screen Ql (U )Ordered By: Matthew Leslie on 02-02-2023 Benzodiazepines Ql (U) Negative Negative [facility] Benzoylecgonine [Presence] i n Urine by Screen methodOrdered By: Matthew Leslie on 02-02-2023 Benzoylecgonine Screen Ql (U) Negative Negative [facility] Bilirubin Test strip Ql (U)O rdered By: Matthew Leslie on 02-02-2023 Bilirubin Ql (U) Negative Negative [facility] Bilirubin.direct [Mass/volum e] in Serum or PlasmaOrdered By: Matthew Leslie on 02-02-2023 Bilirubin.direct [Mass/Vol] 0.10 mg/dL 0.03-0.18 [facility] Bilirubin.total [Mass/volume ] in Serum or PlasmaOrdered By: Matthew Leslie on 02-02-2023 Bilirubin [Mass/Vol] 0.6 mg/dL 0.3-1.0 [facility] Calcium [Mass/volume] in Ser um or PlasmaOrdered By: Matthew Leslie on 02-02-2023 Calcium [Mass/Vol] 9.5 mg/dL 8.6-10.3 [facility] Cannabinoids [Presence] in U rine by Screen methodOrdered By: Matthew Leslie on 02-02-2023 Cannabinoids Screen Ql (U) Negative Negative [facility] Comment on above: These are unconfirme d results and should not be used for legal purposes. Drug Cut-Off Concentration: AMPH 1000 ng/mL PONCHO 200 ng/mL KRISTAN 200 ng/mL COCM 300 ng/mL OP 300 ng/mL PCP 25 ng/mL THC 20 ng/mL Carbon dioxide, total [Moles /volume] in Serum or PlasmaOrdered By: Matthew Leslie on 02-02-2023 CO2 [Moles/Vol] 28.3 mmol/L 21.0-31.0 [facility] Casts typing in urine sedime nt by light microscopyOrdered By: Matthew Leslie on 02-02-2023 Casts LM Nom (Urine sed) None seen [LPF] None Seen [facility] Chloride [Moles/volume] in S barbra or PlasmaOrdered By: Matthew Leslie on 02-02-2023 Chloride [Moles/Vol] 107 mmol/L 98-107 [facility] Color Auto (U)Ordered By: Mariela Leslie on 02-02-2023 Color (U) Yellow Yellow [facility] Complete Blood Count Auto Di ffon 02-02-2023 Basophils (Bld) [#/Vol] 0.1 10*3/uL Normal 0.0-0.2 [facility] Comment on above: Result Comment: PERF ORMED BY: [place] [address] PATHOLOGIST TEST ENGINE EVALUATOR MOISES VELASCO M.D. Performed By: #### E TANYA, HEPATIC, TSH3 wRFLX, CBC, CMP, [id number] #### [facility] [address] [place] [address] [place] Basophils/100 WBC (Bld) 0.9 % Normal . [facility] Comment on above: Performed By: #### E TANYA, HEPATIC, TSH3 wRFLX, CBC, CMP, [id number] #### [facility] [address] [place] [address] [place] Eosinophils (Bld) [#/Vol] 0.0 10*3/uL Normal 0.0-0.45 [facility] Comment on above: Performed By: #### E TANYA, HEPATIC, TSH3 wRFLX, CBC, CMP, [id number] #### [address] Eosinophils/100 WBC (Bld) 0.4 % Normal . [facility] Comment on above: Performed By: #### E TANYA, HEPATIC, TSH3 wRFLX, CBC, CMP, [id number] #### [address] Erythrocyte distribution width (RBC) [Ratio] 12.9 % Normal 11.9-15.3 [facility] Comment on above: Performed By: #### E TANYA, HEPATIC, TSH3 wRFLX, CBC, CMP, [id number] #### [address] Hematocrit (Bld) [Volume fraction] 41.1 % Normal 34.0-46.4 [facility] Comment on above: Performed By: #### E TANYA, HEPATIC, TSH3 wRFLX, CBC, CMP, [id number] #### [address] Hemoglobin (Bld) [Mass/Vol] 13.8 g/dL Normal 11.8-15.4 [facility] Comment on above: Performed By: #### E TANYA, HEPATIC, TSH3 wRFLX, CBC, CMP, [id number] #### [address] Lymphocytes (Bld) [#/Vol] 2.7 10*3/uL Normal 1.00-4.8 [facility] Comment on above: Performed By: #### E TANYA, HEPATIC, TSH3 wRFLX, CBC, CMP, [id number] #### [address] Lymphocytes/100 WBC (Bld) 36.0 % Normal . [facility] Comment on above: Performed By: #### E TANYA, HEPATIC, TSH3 wRFLX, CBC, CMP, [id number] #### [address] MCH (RBC) [Entitic mass] 29.4 pg Normal 24.7-34.3 [facility] Comment on above: Performed By: #### E TANYA, HEPATIC, TSH3 wRFLX, CBC, CMP, [id number] #### [address] MCV (RBC) [Entitic vol] 87.6 fL Normal 80-100 [facility] Comment on above: Performed By: #### E TANYA, HEPATIC, TSH3 wRFLX, CBC, CMP, [id number] #### [address] Mean Corpuscular HGB Conc 33.6 g/dL Normal 32.0-35.0 [facility] Comment on above: Performed By: #### E TANYA, HEPATIC, TSH3 wRFLX, CBC, CMP, [id number] #### [address] Monocytes (Bld) [#/Vol] 0.6 10*3/uL Normal 0.0-0.8 [facility] Comment on above: Performed By: #### E TANYA, HEPATIC, TSH3 wRFLX, CBC, CMP, [id number] #### [address] Monocytes/100 WBC (Bld) 17.83 % Normal 0.00-20.00 [facility] Comment on above: Performed By: #### E TANYA, HEPATIC, TSH3 wRFLX, CBC, CMP, [id number] #### [place] [address] [place] Monocytes/100 WBC (Bld) 7.9 % Normal . [facility] Comment on above: Performed By: #### E TANYA, HEPATIC, TSH3 wRFLX, CBC, CMP, [id number] #### [place] [address] [place] Neutrophils (Bld) [#/Vol] 4.2 10*3/uL Normal 1.8-7.7 [facility] Comment on above: Performed By: #### E TANYA, HEPATIC, TSH3 wRFLX, CBC, CMP, [id number] #### [address] Neutrophils/100 WBC (Bld) 54.8 % Normal . [facility] Comment on above: Performed By: #### E TANYA, HEPATIC, TSH3 wRFLX, CBC, CMP, [id number] #### [address] NRBC% 0.0 /100{WBC} Normal 0-0.5 [facility] Comment on above: Performed By: #### E TANYA, HEPATIC, TSH3 wRFLX, CBC, CMP, [id number] #### [address] Platelet mean volume (Bld) [Entitic vol] 9.2 fL Normal 6.3-10.7 [facility] Comment on above: Performed By: #### E TANYA, HEPATIC, TSH3 wRFLX, CBC, CMP, [id number] #### [address] Platelets (Bld) [#/Vol] 322 10*3/uL Normal 150-450 [facility] Comment on above: Performed By: #### E TANYA, HEPATIC, TSH3 wRFLX, CBC, CMP, [id number] #### [address] RBC (Bld) [#/Vol] 4.70 10*6/uL Normal 3.60-5.00 [facility] Comment on above: Performed By: #### E TANYA, HEPATIC, TSH3 wRFLX, CBC, CMP, [id number] #### [address] WBC (Bld) [#/Vol] 7.6 10*3/uL Normal 3.8-11.6 [facility] Comment on above: Performed By: #### E TANYA, HEPATIC, TSH3 wRFLX, CBC, CMP, [id number] #### [facility] [address] Comprehensive Metabolic Pane akbar 02-02-2023 Albumin [Mass/Vol] 4.6 g/dL Normal 3.5-5.7 [facility] Comment on above: Performed By: #### U HCG, ADDONUAPLUS, URDS, CUU #### [address] Albumin/Globulin [Mass ratio] 1.4 {ratio} Normal [facility] Comment on above: Performed By: #### U HCG, ADDONUAPLUS, URDS, CUU #### [address] ALP [Catalytic activity/Vol] 54 U/L Normal 34-104 [facility] Comment on above: Performed By: #### U HCG, ADDONUAPLUS, URDS, CUU #### [address] ALT [Catalytic activity/Vol] 38 U/L Normal 7-52 [facility] Comment on above: Performed By: #### U HCG, ADDONUAPLUS, URDS, CUU #### [address] Anion gap [Moles/Vol] 9.5 mmol/L Normal 6.0-15.0 [facility] Comment on above: Performed By: #### U HCG, ADDONUAPLUS, URDS, CUU #### [address] AST [Catalytic activity/Vol] 32 U/L Normal 13-39 [facility] Comment on above: Performed By: #### U HCG, ADDONUAPLUS, URDS, CUU #### [address] Bilirubin [Mass/Vol] 0.6 mg/dL Normal 0.3-1.0 [facility] Comment on above: Performed By: #### U HCG, ADDONUAPLUS, URDS, CUU #### [address] [place] [address] [place] Calcium [Mass/Vol] 9.5 mg/dL Normal 8.6-10.3 [facility] Comment on above: Performed By: #### U HCG, ADDONUAPLUS, URDS, CUU #### [facility] [address] Chloride [Moles/Vol] 107 mmol/L Normal 98-107 [facility] Comment on above: Performed By: #### U HCG, ADDONUAPLUS, URDS, CUU #### [facility] [address] CO2 [Moles/Vol] 28.3 mmol/L Normal 21.0-31.0 [facility] Comment on above: Performed By: #### U HCG, ADDONUAPLUS, URDS, CUU #### [facility] [address] Creatinine [Mass/Vol] 1.14 mg/dL Normal 0.60-1.20 [facility] Comment on above: Performed By: #### U HCG, ADDONUAPLUS, URDS, CUU #### [facility] [address] [place] [address] Creatinine Clr Calc Pharmacy 76.05 Normal [facility] Comment on above: Result Comment: PERF ORMED BY: [place] [address] PATHOLOGIST TEST ENGINE EVALUATOR MOISES VELASCO M.D. Performed By: #### U HCG, ADDONUAPLUS, URDS, CUU #### [facility] [address] [place] [address] [place] GFR/1.73 sq M.predicted MDRD (S/P/Bld) [Vol rate/Area] mL/min/{1.73_m2} Normal [facility] Comment on above: Performed By: #### U HCG, ADDONUAPLUS, URDS, CUU #### [facility] [address] [place] [address] [place] Globulin (S) [Mass/Vol] 3.2 g/dL Normal [facility] Comment on above: Performed By: #### U HCG, ADDONUAPLUS, URDS, CUU #### [facility] [address] [place] [address] [place] Glucose [Mass/Vol] 98 mg/dL Normal 70-100 [facility] Comment on above: Result Comment: [place] Glucose Reference Range is dependent on time and content of last meal. Glucose of more than 200 mg/dL in a nonstressed, ambulatory subject supports the diagnosis of Diabetes Mellitus. ADA recommended reference range Performed By: #### U HCG, ADDONUAPLUS, URDS, CUU #### [facility] [address] Potassium [Moles/Vol] 3.8 mmol/L Normal 3.5-5.1 [facility] Comment on above: Performed By: #### U HCG, ADDONUAPLUS, URDS, CUU #### [facility] [address] [place] [address] Protein [Mass/Vol] 7.8 g/dL Normal 6.4-8.9 [facility] Comment on above: Performed By: #### U HCG, ADDONUAPLUS, URDS, CUU #### [facility] [address] [place] [address] [place] Sodium [Moles/Vol] 141 mmol/L Normal 136-145 [facility] Comment on above: Performed By: #### U HCG, ADDONUAPLUS, URDS, CUU #### [facility] [address] [place] [address] [place] Urea nitrogen [Mass/Vol] 11 mg/dL Normal 7-25 [facility] Comment on above: Performed By: #### U HCG, ADDONUAPLUS, URDS, CUU #### [facility] [address] [place] [address] [place] Creatinine [Mass/volume] in Serum or PlasmaOrdered By: Matthew Leslie on 02-02-2023 Creatinine [Mass/Vol] 1.14 mg/dL 0.60-1.20 [facility] Dipstick and Microscopicon 0 02-02-2023 Appearance (U) Cloudy Critically abnormal Clear [facility] Comment on above: Order Comment: Name Collection Type:: Clean-Voided Midstream Performed By: #### U HCG, ADDONUAPLUS, URDS, CUU #### [facility] [address] [place] [address] Bacteria,Urine 1+ High None Seen [facility] Comment on above: Order Comment: Name Collection Type:: Clean-Voided Midstream Performed By: #### U HCG, ADDONUAPLUS, URDS, CUU #### [facility] [address] [place] [address] [place] Bilirubin,Urine Negative Normal Negative [facility] Comment on above: Order Comment: Name Collection Type:: Clean-Voided Midstream Performed By: #### U HCG, ADDONUAPLUS, URDS, CUU #### [facility] [address] [place] [address] Color (U) Yellow Normal Yellow [facility] Comment on above: Order Comment: Name Collection Type:: Clean-Voided Midstream Performed By: #### U HCG, ADDONUAPLUS, URDS, CUU #### [facility] [address] [place] [address] Glucose Ql (U) Normal Normal Normal [facility] Comment on above: Order Comment: Name Collection Type:: Clean-Voided Midstream Performed By: #### U HCG, ADDONUAPLUS, URDS, CUU #### [facility] [address] [place] [address] [place] Hyaline Casts,Urine 0-1 Normal 0-1 [facility] Comment on above: Order Comment: Name Collection Type:: Clean-Voided Midstream Performed By: #### U HCG, ADDONUAPLUS, URDS, CUU #### [facility] [address] [place] [address] [place] Ketones Ql (U) 2+ High Negative [facility] Comment on above: Order Comment: Name Collection Type:: Clean-Voided Midstream Performed By: #### U HCG, ADDONUAPLUS, URDS, CUU #### [facility] [address] [place] [address] [place] Leukocyte esterase Test strip Ql (U) 2+ High Negative [facility] Comment on above: Order Comment: Name Collection Type:: Clean-Voided Midstream Performed By: #### U HCG, ADDONUAPLUS, URDS, CUU #### [facility] [address] [place] [address] Nitrite,Urine Negative Normal Negative [facility] Comment on above: Order Comment: Name Collection Type:: Clean-Voided Midstream Performed By: #### U HCG, ADDONUAPLUS, URDS, CUU #### [address] Occult Blood,Urine 3+ High Negative [facility] Comment on above: Order Comment: Name Collection Type:: Clean-Voided Midstream Performed By: #### U HCG, ADDONUAPLUS, URDS, CUU #### [facility] [address] [place] [address] Other Casts,Urine None Seen Normal None Seen [facility] Comment on above: Order Comment: Name Collection Type:: Clean-Voided Midstream Performed By: #### U HCG, ADDONUAPLUS, URDS, CUU #### [facility] [address] [place] [address] pH (U) 6.0 [pH] Normal 5.0-9.0 [facility] Comment on above: Order Comment: Name Collection Type:: Clean-Voided Midstream Performed By: #### U HCG, ADDONUAPLUS, URDS, CUU #### [facility] [address] [place] [address] Protein (U) [Mass/Vol] 30 mg/dL High Negative [facility] Comment on above: Order Comment: Name Collection Type:: Clean-Voided Midstream Performed By: #### U HCG, ADDONUAPLUS, URDS, CUU #### [facility] [address] [place] [address] RBC,Urine 10-19 High 0-4 [facility] Comment on above: Order Comment: Name Collection Type:: Clean-Voided Midstream Performed By: #### U HCG, ADDONUAPLUS, URDS, CUU #### [facility] [address] [place] [address] Specificy Carver,Urine 1.027 Normal 1.001-1.030 [facility] Comment on above: Order Comment: Name Collection Type:: Clean-Voided Midstream Performed By: #### U HCG, ADDONUAPLUS, URDS, CUU #### [facility] [address] [place] [address] Squamous Epithelial Cell,Urine 3-4 High 0-2 [facility] Comment on above: Order Comment: Name Collection Type:: Clean-Voided Midstream Performed By: #### U HCG, ADDONUAPLUS, URDS, CUU #### [address] Urobilinogen,Urine Normal Normal Normal [facility] Comment on above: Order Comment: Name Collection Type:: Clean-Voided Midstream Performed By: #### U HCG, ADDONUAPLUS, URDS, CUU #### [facility] [address] [place] [address] WBC,Urine 10-19 High 0-4 [facility] Comment on above: Order Comment: Name Collection Type:: Clean-Voided Midstream Performed By: #### U HCG, ADDONUAPLUS, URDS, CUU #### [facility] [address] [place] [address] Yeast,Urine None Seen Normal None Seen [facility] Comment on above: Order Comment: Name Collection Type:: Clean-Voided Midstream Performed By: #### U HCG, ADDONUAPLUS, URDS, CUU #### [place] [address] [place] Drug Screen,Urineon 02-03-20 23 Amphetamine Screen,Urine Negative Normal Negative [facility] Comment on above: Performed By: #### U HCG, ADDONUAPLUS, URDS, CUU #### [address] Barbiturate Screen,Urine Negative Normal Negative [facility] Comment on above: Performed By: #### U HCG, ADDONUAPLUS, URDS, CUU #### [facility] [address] [place] [address] Benzodiazepines Screen,Urine Negative Normal Negative [facility] Comment on above: Performed By: #### U HCG, ADDONUAPLUS, URDS, CUU #### [address] Cannabinoid Screen,Urine Negative Normal Negative [facility] Comment on above: Result Comment: Thes e are unconfirmed results and should not be used for legal purposes. Drug Cut-Off Concentration: AMPH 1000 ng/mL PONCHO 200 ng/mL KRISTAN 200 ng/mL COCM 300 ng/mL OP 300 ng/mL PCP 25 ng/mL THC 20 ng/mL PERFORMED BY: [place] [address] PATHOLOGIST TEST ENGINE EVALUATOR MOISES VELASCO M.D. Performed By: #### U HCG, ADDONUAPLUS, URDS, CUU #### [address] Cocaine Screen,Urine Negative Normal Negative [facility] Comment on above: Performed By: #### U HCG, ADDONUAPLUS, URDS, CUU #### [address] Opiate Screen,Urine Negative Normal Negative [facility] Comment on above: Performed By: #### U HCG, ADDONUAPLUS, URDS, CUU #### [address] Phencyclidine Screen,Urine Negative Normal Negative [facility] Comment on above: Performed By: #### U HCG, ADDONUAPLUS, URDS, CUU #### [address] Eosinophils Auto (Bld) [#/Vo l]Ordered By: Matthew Leslie on 02-02-2023 Eosinophils (Bld) [#/Vol] 0.0 10*3/uL 0.0-0.45 [facility] Eosinophils/100 WBC Auto (Bl d)Ordered By: Matthew Leslie on 02-02-2023 Eosinophils/100 WBC (Bld) 0.4 % . [facility] Erythrocyte distribution wid th Auto (RBC) [Ratio]Ordered By: Matthew Leslie on 02-02-2023 Erythrocyte distribution width (RBC) [Ratio] 12.9 % 11.9-15.3 [facility] Ethanol [Mass/volume] in Ser um or PlasmaOrdered By: Matthew Leslie on 02-02-2023 Ethanol [Mass/Vol] mg/dL [facility] Ethanol [Mass/Vol] TNP [facility] Comment on above: Test not performed Ethyl Alcohol Profileon Ethanol [Mass/Vol] mg/dL Normal [facility] Comment on above: Performed By: #### E TANYA, HEPATIC, TSH3 wRFLX, CBC, CMP, [id number] #### [facility] [address] [place] [address] Percent Ethanol Not performed Normal [facility] Comment on above: Result Comment: PERF ORMED BY: [address] [place] [address] PATHOLOGIST TEST ENGINE EVALUATOR MOISES VELASCO M.D. Performed By: #### E TANYA, HEPATIC, TSH3 wRFLX, CBC, CMP, [id number] #### [facility] [address] [place] [address] Globulin Calc (S) [Mass/Vol] Ordered By: Matthew Leslie on 02-02-2023 Globulin (S) [Mass/Vol] 3.2 g/dL [facility] Glucose [Mass/volume] in Ser um or PlasmaOrdered By: Matthew Leslie on 02-02-2023 Glucose [Mass/Vol] 98 mg/dL 70-100 [facility] Comment on above: ADA recommended refe rence rangeRandom Glucose Reference Range is dependent on time and content of last meal. Glucose of more than 200 mg/dL in a nonstressed, ambulatory subject supports the diagnosis of Diabetes Mellitus. HCG ( test) IA.rapi d Ql (U)Ordered By: Matthew Leslie on 02-02-2023 HCG ( test) Ql (U) Negative [facility] HCG,Urineon 02-02-2023 Beta HCG ( test) Ql (U) Negative Normal [facility] Comment on above: Order Comment: Name Collection Type:: Clean-Voided Midstream Result Comment: PERF ORMED BY: [place] [address] PATHOLOGIST TEST ENGINE EVALUATOR MOISES VELASCO M.D. Performed By: #### U HCG, ADDONUAPLUS, URDS, CUU #### [facility] [address] [place] [address] Hematocrit Auto (Bld) [Volum e fraction]Ordered By: Matthew Leslie on 02-02-2023 Hematocrit (Bld) [Volume fraction] 41.1 % 34.0-46.4 [facility] Hemoglobin [Mass/volume] in BloodOrdered By: Matthew Leslie on 02-02-2023 Hemoglobin (Bld) [Mass/Vol] 13.8 g/dL 11.8-15.4 [facility] Hepatic Panelon 02-02-2023 Bilirubin,Indirect 0.5 mg/dL Normal [facility] Comment on above: Performed By: #### U HCG, ADDONUAPLUS, URDS, CUU #### [facility] [address] [place] [address] Bilirubin.indirect [Mass/Vol] 0.10 mg/dL Normal 0.03-0.18 [facility] Comment on above: Performed By: #### U HCG, ADDONUAPLUS, URDS, CUU #### [facility] [address] [place] [address] Ketones Auto test strip (U) [Mass/Vol]Ordered By: Matthew Leslie on 02-02-2023 Ketones (U) [Mass/Vol] 2+ Negative [facility] Leukocytes [#/volume] correc alberto for nucleated erythrocytes in Blood by Automated counOrdered By: Matthew Leslie on 02-02-2023 WBC corrected for nucl RBC Auto (Bld) [#/Vol] 7.6 10*3/uL 3.8-11.6 [facility] Lymphocytes Auto (Bld) [#/Vo l]Ordered By: Matthew Leslie on 02-02-2023 Lymphocytes (Bld) [#/Vol] 2.7 10*3/uL 1.00-4.8 [facility] Lymphocytes/100 WBC Auto (Bl d)Ordered By: Matthew Leslie on 02-02-2023 Lymphocytes/100 WBC (Bld) 36.0 % . [facility] MCH Auto (RBC) [Entitic mass ]Ordered By: Matthew Leslie on 02-02-2023 MCH (RBC) [Entitic mass] 29.4 pg 24.7-34.3 [facility] MCHC Auto (RBC) [Mass/Vol]Or dered By: Matthew Leslie on 02-02-2023 MCHC (RBC) [Mass/Vol] 33.6 g/dL 32.0-35.0 Fir [facility] MCV Auto (RBC) [Entitic vol] Ordered By: Matthew Leslie on 02-02-2023 MCV (RBC) [Entitic vol] 87.6 fL 80-100 [facility] Monocyte distribution width [Entitic volume] in Blood by AutomatedOrdered By: Matthew Leslie on 02-02-2023 Monocyte distribution width Auto (Bld) [Entitic vol] 17.83 % 0.00-20.00 [facility] Monocytes Auto (Bld) [#/Vol] Ordered By: Matthew Leslie on 02-02-2023 Monocytes (Bld) [#/Vol] 0.6 10*3/uL 0.0-0.8 [facility] Monocytes/100 WBC Auto (Bld) Ordered By: Matthew Leslie on 02-02-2023 Monocytes/100 WBC (Bld) 7.9 % . [facility] Neutrophils Auto (Bld) [#/Vo l]Ordered By: Matthew Leslie on 02-02-2023 Neutrophils (Bld) [#/Vol] 4.2 10*3/uL 1.8-7.7 [facility] Neutrophils/100 WBC Auto (Bl d)Ordered By: Matthew Leslie on 02-02-2023 Neutrophils/100 WBC (Bld) 54.8 % . [facility] Nitrite Test strip Ql (U)Ord ered By: Matthew Leslie on 02-02-2023 Nitrite Ql (U) Negative Negative [facility] No Panel InformationOrdered By: Matthew Leslie on 02-02-2023 Estimated GFR (CKD-EPI) > 60.0 mL/Min [facility] Creatinine Clearance (Chem 76.05 [facility] Nucleated erythrocytes [Pres ence] in Blood by Automated countOrdered By: Matthew Leslie on 02-02-2023 Nucleated RBC Auto Ql (Bld) 0.0 /100{WBC} 0-0.5 [facility] Opiates [Presence] in Urine by Screen methodOrdered By: Matthew Leslie on 02-02-2023 Opiates Screen Ql (U) Negative Negative [facility] Phencyclidine Screen Ql (U)O rdered By: Matthew Leslie on 02-02-2023 Phencyclidine Ql (U) Negative Negative [facility] Platelet mean volume Auto (B ld) [Entitic vol]Ordered By: Matthew Leslie on 02-02-2023 Platelet mean volume (Bld) [Entitic vol] 9.2 fL 6.3-10.7 [facility] Platelets Auto (Bld) [#/Vol] Ordered By: Matthew Leslie on 02-02-2023 Platelets (Bld) [#/Vol] 322 10*3/uL 150-450 [facility] Potassium [Moles/volume] in Serum or PlasmaOrdered By: Matthew Leslie on 02-02-2023 Potassium [Moles/Vol] 3.8 mmol/L 3.5-5.1 [facility] Protein Auto test strip (U) [Mass/Vol]Ordered By: Matthew Leslie on 02-02-2023 Protein (U) [Mass/Vol] 30 mg/dL Negative [facility] Protein [Mass/volume] in Ser um or PlasmaOrdered By: Matthew Leslie on 02-02-2023 Protein [Mass/Vol] 7.8 g/dL 6.4-8.9 [facility] RBC Auto (Bld) [#/Vol]Ordere d By: Matthew Leslie on 02-02-2023 RBC (Bld) [#/Vol] 4.70 10*6/uL 3.60-5.00 [facility] Serum or plasma albumin/glob ulin mass ratioOrdered By: Matthew Leslie on 02-02-2023 Albumin/Globulin [Mass ratio] 1.4 {ratio} [facility] Serum or plasma anion gap de terminationOrdered By: Matthew Leslie on 02-02-2023 Anion gap [Moles/Vol] 9.5 mmol/L 6.0-15.0 [facility] Serum or plasma non-glucuron idated bilirubin measurement (mass/volume)Ordered By: Matthew Leslie on 02-02-2023 Bilirubin.indirect [Mass/Vol] 0.5 mg/dL [facility] Sodium [Moles/volume] in Ser um or PlasmaOrdered By: Matthew Leslie on 02-02-2023 Sodium [Moles/Vol] 141 mmol/L 136-145 [facility] Specific gravity Auto test s trip (U) [Rel density]Ordered By: Matthew Leslie on 02-02-2023 Specific gravity (U) [Rel density] 1.027 1.001-1.030 [facility] Squamous epithelial cells de tection in urine sediment by light microscopyOrdered By: Matthew Leslie on 02-02-2023 Epithelial cells.squamous LM Ql (Urine sed) 3-4 [HPF] 0-2 [facility] Thyroid Stim Hormone w/Rflxo n 02-02-2023 Thyroid Stim Hormone w/Rflx 3.74 u[iU]/mL Normal 0.45-5.33 [facility] Comment on above: Performed By: #### U HCG, ADDONUAPLUS, URDS, CUU #### [address] Thyrotropin [Units/volume] i n Serum or PlasmaOrdered By: Matthew Leslie on 02-02-2023 TSH Qn 3.74 m[IU]/L 0.45-5.33 [facility] Urea nitrogen [Mass/volume] in Serum or PlasmaOrdered By: Matthew Leslie on 02-02-2023 Urea nitrogen [Mass/Vol] 11 mg/dL 7-25 [facility] Urine Cultureon 02-02-2023 Bacteria identified Cx Nom (U) No Growth 2 Days PERFORMED BY: [place] [address] PATHOLOGIST TEST ENGINE EVALUATOR MOISES VELASCO M.D. Normal [facility] Comment on above: Performed By: #### U HCG, ADDONUAPLUS, URDS, CUU #### [facility] [address] [id number] [facility] Urine bacteria detection by automated methodOrdered By: Matthew Leslie on 02-02-2023 Bacteria Auto Ql (U) 1+ None Seen [facility] Urine clarity by refractomet ry automatedOrdered By: Matthew Leslie on 02-02-2023 Clarity Refractometry automated (U) Cloudy Clear [facility] Urine culture routineOrdered By: Matthew Leslie on 02-02-2023 Bacteria identified Cx Nom (U) No Growth 2 Days [facility] Urine glucose measurement by automated test strip (mass/volume)Ordered By: Matthew Leslie on 02-02-2023 Glucose Auto test strip (U) [Mass/Vol] Normal mg/dL Normal [facility] Urine hemoglobin detection b y automated test stripOrdered By: Matthew Leslie on 02-02-2023 Hemoglobin Auto test strip Ql (U) 3+ Negative [facility] Urine leukocyte esterase det ection by automated test stripOrdered By: Matthew Leslie on 02-02-2023 Leukocyte esterase Auto test strip Ql (U) 2+ Negative [facility] Urobilinogen Auto test strip (U) [Mass/Vol]Ordered By: Matthew Leslie on 02-02-2023 Urobilinogen (U) [Mass/Vol] Normal mg/dL Normal [facility] Vitamin D 25 Hydroxy Totalon 02-02-2023 Vitamin D 25 Hydroxy Total 54.2 ng/mL Normal 30-100 [facility] Comment on above: Result Comment: MABLE MIN D STATUS 25(OH)VITAMIN D RANGE (ng/mL) Deficient <20 Insufficient 20 to <30 Sufficient 30 to 100 Reference: Miri MF,Nimisha NC, Luisa MCCRACKEN, et al. Evaluation,treatment, and prevention of vitamin D deficiency; an Endocrine Society clinical practice guideline. JCEM. 2010; 96(7):1911-30. PERFORMED BY: [place] [address] PATHOLOGIST TEST ENGINE EVALUATOR MOISES VELASCO M.D. Performed By: #### U HCG, ADDONUAPLUS, URDS, CUU #### [facility] [address] [place] [address] [facility] Vitamin D+Metabolites [Mass/ volume] in Serum or PlasmaOrdered By: Matthew Leslie on 02-02-2023 Vitamin D+Metabolites [Mass/Vol] 54.2 ng/mL 30-100 [facility] Comment on above: VITAMIN D STATUS 25( [place])VITAMIN D RANGE (ng/mL) Deficient <20 Insufficient 20 to <30Sufficient 30 to 100Reference: Miri MF,Nimisha MCLAIN, Luisa MCCRACKEN, et al. Evaluation,treatment, and prevention of vitamin D deficiency; an Endocrine Society clinical practice guideline. JCEM. 2010; 96(7):1911-30. WBC Auto (Bld) [#/Vol]Ordere d By: Matthew Leslie on 02-02-2023 WBC (Bld) [#/Vol] 7.6 10*3/uL 3.8-11.6 [facility] Yeast detection in urine sed iment by light microscopyOrdered By: Matthew Leslie on 02-02-2023 Yeast LM Ql (Urine sed) None seen [HPF] None Se en [facility] pH Auto test strip (U)Ordere d By: Matthew Leslie on 02-02-2023 pH (U) 6.0 [pH] 5.0-9.0 [facility] AMNISUREon 09-16-2022 AMNISURE Positive Abnormal NEGATIVE [facility] Comment on above: Performed By: #### A MNI #### [facility] [address] [address] [address] Adrianna Caldera CBC AUTO DIFFon 09-16-2022 BASO # 0.1 103/ul Normal 0.0-0.1 [facility] Comment on above: Performed By: #### C BC #### [facility] [address] [address] [address] Adrianna Caldera Basophils/100 WBC (Bld) 0.4 % Normal 0.2-2.0 [facility] Comment on above: Performed By: #### C BC #### [facility] [address] [address] [address] Adrianna Caldera EO # 0.0 103/ul Normal 0.0-0.7 [facility] Comment on above: Performed By: #### C BC #### [facility] [address] [place] [address] Dr. Adrianna Caldera Eosinophils/100 WBC (Bld) 0.1 % Critically low 0.9-7.0 [facility] Comment on above: Performed By: #### C BC #### [facility] [address] [place] [address] Dr. Adrianna Caldera Erythrocyte distribution width (RBC) [Ratio] 12.3 % Normal 11.0-15.0 [facility] Comment on above: Performed By: #### C BC #### [facility] [address] [place] [address] Dr. Adrianna Caldera Hematocrit (Bld) [Volume fraction] 38.3 % Normal 36.0-48.0 [facility] Comment on above: Performed By: #### C BC #### [facility] [address] [place] [address] Dr. Adrianna Caldera Hemoglobin (Bld) [Mass/Vol] 12.8 g/dL Normal 12.0-16.0 [facility] Comment on above: Performed By: #### C BC #### [facility] [address] [place] [address] Dr. Adrianna Caldera IG # 0.20 10e3/ul Critically high 0.00-0.03 [facility] Comment on above: Performed By: #### C BC #### [facility] [address] [place] [address] Dr. Adrianna Caldera IG % 1.0 % Critically high 0.0-0.5 [facility] Comment on above: Performed By: #### C BC #### [facility] [address] [place] [address] Dr. Adrianna Caldera LYMPH # 1.5 103/ul Normal 1.2-3.8 [facility] Comment on above: Performed By: #### C BC #### [facility] [address] [place] [address] Dr. Adrianna Caldera Lymphocytes/100 WBC (Bld) 7.7 % Critically low 20.5-60.0 [facility] Comment on above: Performed By: #### C BC #### [facility] [address] [place] [address] Dr. Adrianna Caldera MANUAL DIFF REQ NO Normal [facility] Comment on above: Performed By: #### C BC #### [facility] [address] [place] [address] Dr. Adrianna Caldera MCH (RBC) [Entitic mass] 28.9 pg Normal 26.7-34.0 [facility] Comment on above: Performed By: #### C BC #### [facility] [address] [place] [address] Dr. Adrianna Caldera MCHC (RBC) [Mass/Vol] 33.4 g/dL Normal 29.9-35.2 [facility] Comment on above: Performed By: #### C BC #### [facility] [address] [place] [address] Dr. Adrianna Caldera MCV (RBC) [Entitic vol] 86.5 fL Normal 81.0-99.0 [facility] Comment on above: Performed By: #### C BC #### [facility] [address] [place] [address] Dr. Adrianna Caldera MONO # 0.3 103/ul Normal 0.3-0.8 [facility] Comment on above: Performed By: #### C BC #### [facility] [address] [place] [address] Dr. Adrianna Caldera Monocytes/100 WBC (Bld) 1.7 % Normal 1.7-12.0 [facility] Comment on above: Performed By: #### C BC #### [facility] [address] [place] [address] Dr. Adrianna Caldera NEUT # 17.5 103/ul Critically high 1.4-6.5 [facility] Comment on above: Performed By: #### C BC #### [facility] [address] [place] [address] Dr. Adrianna Caldera Neutrophils/100 WBC (Bld) 89.1 % Critically high 43.0-75.0 [facility] Comment on above: Performed By: #### C BC #### [facility] [address] [place] [address] Dr. Adrianna Caldera Platelet mean volume (Bld) [Entitic vol] 10.7 fL Normal 9.5-13.5 [facility] Comment on above: Performed By: #### C BC #### [facility] [address] [place] [address] Dr. Adrianna Caldera PLT 356 103/ul Normal 150-450 [facility] Comment on above: Performed By: #### C BC #### [facility] [address] [place] [address] Dr. Adrianna Caldera RBC 4.43 106/ul Normal 4.20-5.40 [facility] Comment on above: Performed By: #### C BC #### [facility] [address] [place] [address] Dr. Adrianna Caldera WBC 19.6 103/ul Critically high 4.0-11.0 [facility] Comment on above: Performed By: #### C BC #### [facility] [address] [place] [address] Dr. Adrianna Caldera UA (CLEAN/CATCH) RESISTANCE WELDER/MICRO I F IND.on 09-16-2022 Bilirubin Ql (U) Negative Normal NEGATIVE [facility] Comment on above: Performed By: #### U ACSIND #### [facility] [address] [place] [address] Dr. Adrianna Caldera Clarity (U) CLEAR Normal CLEAR [facility] Comment on above: Performed By: #### U ACSIND #### [facility] [address] [place] [address] Dr. Adrianna Caldera Color (U) LT. YELLOW Normal YELLOW [facility] Comment on above: Performed By: #### U ACSIND #### [facility] [address] [place] [address] Dr. Adrianna Caldera Glucose Ql (U) Negative Normal NEGATIVE [facility] Comment on above: Performed By: #### U ACSIND #### [facility] [address] [place] [address] Dr. Adrianna Caldera Hemoglobin Ql (U) Negative Normal NEGATIVE [facility] Comment on above: Performed By: #### U ACSIND #### [facility] [address] [place] [address] Dr. Adrianna Caldera Ketones Ql (U) Negative Normal NEGATIVE [facility] Comment on above: Performed By: #### U ACSIND #### [facility] [address] [place] [address] Dr. Adrianna Caldera LEUKOCYTES Negative Normal NEGATIVE [facility] Comment on above: Performed By: #### U ACSIND #### [facility] [address] [address] [address] Adrianna Caldera Nitrite Ql (U) Negative Normal NEGATIVE [facility] Comment on above: Performed By: #### U ACSIND #### [facility] [address] [place] [address] Dr. Adrianna Caldera pH (U) 5.5 [pH] Normal 5-9 [facility] Comment on above: Performed By: #### U ACSIND #### [facility] [address] [place] [address] Dr. Adrianna Caldera SPEC GRAVITY 1.010 Normal 1.005-<=1.0 25 [facility] Comment on above: Performed By: #### U ACSIND #### [facility] [address] [place] [address] Dr. Adrianna Caldera UA PROTEIN Negative Normal NEGATIVE/ TRACE [facility] Comment on above: Performed By: #### U ACSIND #### [facility] [address] [place] [address] Dr. Adrianna Caldera UR MICRO IND NOT INDICATED Normal [facility] Comment on above: Performed By: #### U ACSIND #### [facility] [address] [place] [address] Dr. Adrianna Caldera Urobilinogen Qn (U) 0.2 {Micheal'U}/dL Normal 0.2 - 1. 0 [facility] Comment on above: Performed By: #### U ACSIND #### [facility] [address] [place] [address] Dr. Adrianna Caldera US PREG GROWTHon 09-16-2022 [...] KAROL SIDDIQUI Date: 2022-09-16 15:19 Normal [facility] UA (CLEAN/CATCH) RESISTANCE WELDER/MICRO I F IND.on 09-04-2022 Bilirubin Ql (U) Negative Normal NEGATIVE [facility] Comment on above: Performed By: #### U ACSIND ####[facility] [address] [place], [place] [address]Dr. Adrianna Caldera Clarity (U) CLEAR Normal CLEAR [facility] Comment on above: Performed By: #### U ACSIND ####[facility] [address] [place], [place] [address]Dr. Adrianna Caldera Color (U) LT. YELLOW Normal YELLOW [facility] Comment on above: Performed By: #### U ACSIND ####[facility] [address] [place], [place] [address]Dr. Adrianna Caldera Glucose Ql (U) Negative Normal NEGATIVE [facility] Comment on above: Performed By: #### U ACSIND ####[facility] [address] [place], [place] [address]Dr. Adrianna Caldera Hemoglobin Ql (U) Negative Normal NEGATIVE [facility] Comment on above: Performed By: #### U ACSIND ####[facility] [address] [address]Dr. Adrianna Werner Ketones Ql (U) Negative Normal NEGATIVE [facility] Comment on above: Performed By: #### U ACSIND ####[facility] [address] [address]Dr. Adrianna Caldera LEUKOCYTES Negative Normal NEGATIVE [facility] Comment on above: Performed By: #### U ACSIND ####[facility] [address] [address]Dr. Adrianna Werner Nitrite Ql (U) Negative Normal NEGATIVE [facility] Comment on above: Performed By: #### U ACSIND ####[facility] [address] [place], [place] [address]Dr. Adrianna Caldera pH (U) 7.5 [pH] Normal 5-9 [facility] Comment on above: Performed By: #### U ACSIND ####[facility] [address] [place], [place] [address]Dr. Adrianna Caldera SPEC GRAVITY 1.010 Normal 1.005-<=1.0 25 [facility] Comment on above: Performed By: #### U ACSIND ####[facility] [address] [place], [place] [address]Dr. Adrianna Caldera UA PROTEIN Negative Normal NEGATIVE/ TRACE [facility] Comment on above: Performed By: #### U ACSIND ####[facility] [address] [place], [place] [address]Dr. Adrianna Caldera UR MICRO IND NOT INDICATED Normal [facility] Comment on above: Performed By: #### U ACSIND ####[facility] [address] [place], [place] [address]Dr. Adrianna Caldera Urobilinogen Qn (U) 0.2 {Micheal'U}/dL Normal 0.2 - 1. 0 [facility] Comment on above: Performed By: #### U ACSIND ####[facility] [address] [place], [place] [address]Dr. Adrianna Caldera GTT 3 HR PREGon 04-03-2023 Glucose [Mass/Vol] 88 mg/dL Normal 74-106 [facility] Comment on above: Performed By: #### G TT3P ####[facility] [address] [address]Dr. dArianna Caldera Glucose [Mass/Vol] 167 mg/dL Normal [facility] Comment on above: Performed By: #### G TT3P ####[facility] [address] [id number]. Adrianna Caldera Glucose [Mass/Vol] 136 mg/dL Normal [facility] Comment on above: Performed By: #### G TT3P ####[facility] [address] [id number]. Adrianna Caldera Glucose [Mass/Vol] 144 mg/dL Normal [facility] Comment on above: Performed By: #### G TT3P ####[facility] [address] [id number]. Adrianna Caldera US PREG PLACENTAon US PREG PLACENTA EXAMINATION: US PREG PLACENTA HISTORY: Low lying placenta COMPARISON: Ultrasound anatomy 07/20/2022 FINDINGS: PLACENTA: Posterior with lower margin 4.9 cm from os. CERVIX LENGTH: 4.1 cm, closed. HEART RATE: 144 bpm OTHER: None. IMPRESSION: 1. Single live intrauterine 24 weeks 0 days. 2. Posterior placenta which is no longer low-lying. Electronically authenticated by: KAROL SIDDIQUI Date: 2022-08-17 15:46 Normal [facility] CBC with Diffon 08-10-2022 Abs. Basophil 0.04 k/uL Normal 0.00-0.20 [facility] Comment on above: Performed By: #### L TATA LOPEZ, CP #### [facility] [address] [place] [address] Professional Services Specialist: Cholo Alicea MD Abs.Imm.Granulocyte 0.10 k/uL Normal 0.00-0.30 [facility] Comment on above: Performed By: #### L TATA LOPEZ, CP #### [facility] [address] [place] [address] Professional Services Specialist: Cholo Alicea MD Abs.Neutrophil (Seg) 9.26 k/uL High 1.50-8.10 [facility] Comment on above: Performed By: #### L IP, CDP, CP #### [address] Dr. Ac[place], [facility]83 Professional Services Specialist: Cholo Alicea MD Basophils/100 WBC (Bld) 0 % Normal 0-2 [facility] Comment on above: Performed By: #### L IP, CDP, CP #### [address] [place], [facility]83 Professional Services Specialist: Cholo Alicea MD Eosinophils (Bld) [#/Vol] 0.05 10*3/uL Normal 0.00-0.44 [facility] Comment on above: Performed By: #### L IP, CDP, CP #### [address] [place], [place] [address] Professional Services Specialist: Cholo Alicea MD Eosinophils/100 WBC (Bld) 0 % Low 1-4 [facility] Comment on above: Performed By: #### L IP, CDP, CP #### [address] Acuna, [facility]83 Professional Services Specialist: Cholo Alicea MD Erythrocyte distribution width (RBC) [Ratio] 12.5 % Normal 11.8-14.4 [facility] Comment on above: Performed By: #### L IP, CDP, CP #### [address] Ac[place], [facility]83 Professional Services Specialist: Cholo Alicea MD Hematocrit (Bld) [Volume fraction] 35.2 % Low 36.3-47.1 [facility] Comment on above: Performed By: #### L IP, CDP, CP #### [address] [place], [facility]83 Professional Services Specialist: Cholo Alicea MD Hemoglobin (Bld) [Mass/Vol] 11.6 g/dL Low 11.9-15.1 [facility] Comment on above: Performed By: #### L TATA LOPEZ, CP #### [address] [place], [place] [id number] Professional Services Specialist: Cholo Alicea MD Immature granulocytes/100 WBC (Bld) 1 % High 0 [facility] Comment on above: Performed By: #### L TATA LOPEZ, CP #### [address] [place], [place] 2122183 Professional Services Specialist: Cholo Alicea MD Lymphocytes (Bld) [#/Vol] 1.99 10*3/uL Normal 1.10-3.70 [facility] Comment on above: Performed By: #### L TATA LOPEZ, CP #### [address] cAuna, [facility]83 Professional Services Specialist: Cholo Alicea MD Lymphocytes/100 WBC (Bld) 17 % Low 24-43 [facility] Comment on above: Performed By: #### L TATA LOPEZ, CP #### [address] [place], [place] [id number] Professional Services Specialist: Cholo Alicea MD MCH (RBC) [Entitic mass] 30.8 pg Normal 25.2-33.5 [facility] Comment on above: Performed By: #### L TATA LOPEZ, CP #### [address] [place], [place] [id number] Professional Services Specialist: Cholo Alicea MD MCHC (RBC) [Mass/Vol] 33.0 g/dL Normal 28.4-34.8 [facility] Comment on above: Performed By: #### L TATA LOPEZ, CP #### [address] [place], [place] 7346183 Professional Services Specialist: Cholo Alicea MD MCV (RBC) [Entitic vol] 93.4 fL Normal 82.6-102.9 [facility] Comment on above: Performed By: #### L IP, CDP, CP #### [facility] [address] [place], [place] [id number] Professional Services Specialist: Cholo Alicea MD Monocytes (Bld) [#/Vol] 0.43 10*3/uL Normal 0.10-1.20 [facility] Comment on above: Performed By: #### L IP, CDP, CP #### [facility] [address] [place], [place] [id number] Professional Services Specialist: Cholo Alicea MD Monocytes/100 WBC (Bld) 4 % Normal 3-12 [facility] Comment on above: Performed By: #### L IP, CDP, CP #### [address] [place], [facility]83 Professional Services Specialist: Cholo Alicea MD Neutrophil (Seg) 78 % High 36-65 [facility] Comment on above: Performed By: #### L IP, CDP, CP #### [address] [place], [place] [address] Professional Services Specialist: Cholo Alicea MD NRBC Automated 0.0 per 100 WBC Normal 0.0 [facility] Comment on above: Performed By: #### L IP, CDP, CP #### [address] [place], [facility]83 Professional Services Specialist: Cholo Alicea MD Platelet mean volume (Bld) [Entitic vol] 10.6 fL Normal 8.1-13.5 [facility] Comment on above: Performed By: #### L IP, CDP, CP #### [address] [place], [facility]83 Professional Services Specialist: Cholo Alicea MD Platelets (Bld) [#/Vol] 333 10*3/uL Normal 138-453 [facility] Comment on above: Performed By: #### L IP, CDP, CP #### [facility] [address] [place], [place] [id number] Professional Services Specialist: Cholo Alicea MD RBC (Bld) [#/Vol] 3.77 10*6/uL Low 3.95-5.11 [facility] Comment on above: Performed By: #### L IP, CDP, CP #### [facility] [address] [place], [place] [id number] Professional Services Specialist: Cholo Alicea MD WBC (Bld) [#/Vol] 11.9 10*3/uL High 3.5-11.3 [facility] Comment on above: Performed By: #### L IP, CDP, CP #### [facility] [address] [place], [place] 7666383 Professional Services Specialist: Cholo Alicea MD Glucose Andrae Scr 50gon 2022 Glucose [Mass/Vol] 161 mg/dL High 70-135 [facility] Comment on above: Performed By: #### L IP, CDP, CP #### [facility] [address] [place], [place] 6758183 Professional Services Specialist: Cholo Alicea MD Glu Administered via Glucola Normal [facility] Comment on above: Performed By: #### L IP, CDP, CP #### [facility] [address] [place], [facility]83 Professional Services Specialist: Cholo Alicea MD UA (CLEAN/CATCH) RESISTANCE WELDER/MICRO I F IND.on 07-21-2022 Bilirubin Ql (U) Negative Normal NEGATIVE [facility] Comment on above: Performed By: #### U ACSIND ####[facility] [address] [place] [address]DrAung Caldera Clarity (U) CLEAR Normal CLEAR [facility] Comment on above: Performed By: #### U ACSIND ####[facility] [address] [place] [address]DrAung Caldera Color (U) LT. YELLOW Normal YELLOW [facility] Comment on above: Performed By: #### U ACSIND ####[facility] [address] [place] [address]Dr. Adrianna Caldera Glucose Ql (U) Negative Normal NEGATIVE [facility] Comment on above: Performed By: #### U ACSIND ####[facility] [address] [place], [place] [address]Dr. Adrianna Caldera Hemoglobin Ql (U) Negative Normal NEGATIVE [facility] Comment on above: Performed By: #### U ACSIND ####[facility] Op[address] [place], [place] [address]Dr. Jemimabenito Caldera Ketones Ql (U) Negative Normal NEGATIVE [facility] Comment on above: Performed By: #### U ACSIND ####[facility] X[address] [place], [place] [address]Dr. Adrianna Caldera LEUKOCYTES Negative Normal NEGATIVE [facility] Comment on above: Performed By: #### U ACSIND ####[facility] Dex[address] [place], [place] [address]Dr. Adrianna Werner Nitrite Ql (U) Negative Normal NEGATIVE [facility] Comment on above: Performed By: #### U ACSIND ####[facility] I[address] [place], [place] [address]Dr. Adrianna Caldera pH (U) 7.0 [pH] Normal 5-9 [facility] Comment on above: Performed By: #### U ACSIND ####[facility] [address] [place], [place] [address]Dr. Adrianna Caldera SPEC GRAVITY 1.010 Normal 1.005-<=1.0 25 [facility] Comment on above: Performed By: #### U ACSIND ####[facility] Z[address] [place], [place] [address]Dr. Adrianna Caldera UA PROTEIN Negative Normal NEGATIVE/ TRACE [facility] Comment on above: Performed By: #### U ACSIND ####[facility] R[address] [place], [place] [address]Dr. Adrianna Caldera UR MICRO IND NOT INDICATED Normal [facility] Comment on above: Performed By: #### U ACSIND ####[facility] [address] [place], [place] [address]Vi. Adrianna Caldera Urobilinogen Qn (U) 0.2 {Micheal'U}/dL Normal 0.2 - 1. 0 [facility] Comment on above: Performed By: #### U ACSIND ####[facility] [address] [place], [place] [address]An. Adrianna Caldera US PREG ANATOMY SINGLEon US [...] by: KAROL SIDDIQUI Date: 2022-07-21 16:41 Normal [facility] PAP ACOG PANEL 2: 23 to 31on 07-12-2022 . . Normal [facility] Comment on above: Performed By: #### 4 [id number] ####[facility] [address] [place] [id number] Caldera Age Gdln ACOG Testing 21-29 Normal [facility] Comment on above: Performed By: #### 4 [id number] ####[facility] [address] [place] [id number]. Adrianna Caldera DIAGNOSIS: Comment Normal [facility] Comment on above: Result Comment: NEGA TIVE FOR INTRAEPITHELIAL LESION OR MALIGNANCY. Performed By: #### 4 [id number] ####[facility] Eb[address] [place], [place] [address]Dr. Adrianna Caldera Methodology: Comment [facility] Comment on above: Result Comment: This liquid based ThinPrep(R) pap test was screened with the use of an image guided system. Performed By: #### 4 [id number] ####[facility] [address] [place], [place] [address]DrAung Caldera Note: Comment [facility] Comment on above: Result Comment: The Pap smear is a screening test designed to aid in the detection of premalignant and malignant conditions of the uterine cervix. It is not a diagnostic procedure and should not be used as the sole means of detecting cervical cancer. Both false-positive and false-negative reports do occur. . Performed By: #### 4 [id number] ####[facility] [address] [place], [place] [address]DrAung Caldera Performed by: Comment Normal [facility] Comment on above: Result Comment: [place] Yin, Automation Control Integrator (ASCP) Performed By: #### 4 [id number] ####[facility] [address] [place] [id number] Caldera Reflex Criteria: Comment [facility] Comment on above: Result Comment: The HPV DNA reflex criteria were not met with this specimen result therefore, no HPV testing was performed. . Performed By: #### 4 [id number] ####[facility] [address] [place], [place] [address]DrAung Caldera Specimen adequacy: Comment Normal [facility] Comment on above: Result Comment: Sati sfactory for evaluation. No endocervical component is identified. Performed By: #### 4 [id number] ####[facility] [address] [place] [address]DrAung Caldera CHLAMYDIA/GONOCOCCUS ALEKSANDER (SW AB/URINE/PAPon 07-07-2022 Chlamydia trachomatis, ALEKSANDER Negative Normal Negative [facility] Comment on above: Performed By: #### C T/NGNA ####[facility] [address] [place] [address]DrAung Caldera Neisseria gonorrhoeae, ALEKSANDER Negative Normal Negative [facility] Comment on above: Performed By: #### C T/NGNA ####[facility] [address] [place] [address]DrAung Caldera VAGINITIS/VAGINOSIS DNA PROB Scott 07-07-2022 Sherley species Negative Normal Negative [facility] Comment on above: Performed By: #### U ACSIND #### [facility] [address] [place] [address] Dr. Adrianna Caldera Gardnerella vaginalis Negative Normal Negative [facility] Comment on above: Performed By: #### U ACSIND #### [facility] [address] [place] [address] [address] Adrianna Caldera Trichomonas vaginalis Negative Normal Negative [facility] Comment on above: Performed By: #### U ACSIND #### [facility] [address] [place] [address] Dr. Adrianna Caldera Cult,Urineon 07-02-2022 Cult,Urine Specimen Description .CLEAN CATCH URINE Culture NO SIGNIFICANT GROWTH Report Status FINAL 07/02/2022 Normal [facility] Comment on above: Performed By: #### L IP, CDP, CP #### [facility] [address] [place] [id number] Professional Services Specialist: Cholo Alicea MD ABO/RHon 06-30-2022 ABO/Rh Negative [facility] ABO/Rh(D)on 02-01-2023 ABO/Rh(D) Negative Normal [facility] Comment on above: Performed By: #### L IP, CDP, CP #### [facility] [address] [place] [address] Professional Services Specialist: Cholo Alicea MD CBC with Auto Differentialon 06-30-2022 Absolute Eos # 0.06 [facility] Absolute Immature Granulocyte 0.07 [facility] Absolute Lymph # 2.91 [facility] Absolute Real # 0.66 [facility] Basophils (Bld) [#/Vol] 0.04 10*3/uL [facility] Basophils/100 WBC (Bld) 0 % 0 - 2 % B ON [facility] Eosinophils/100 WBC (Bld) 1 % 1 - 4 % [facility] Hematocrit (Bld) [Volume fraction] 35.2 % Low 36.3 - 47.1 % [facility] Hemoglobin (Bld) [Mass/Vol] 11.9 g/dL 11.9 - 15.1 g/dL [facility] Immature granulocytes/100 WBC (Bld) 1 % High 0 [facility] Interpretation and review of laboratory results Abnormal [facility] Lymphocytes/100 WBC (Bld) 24 % 24 - 43 % [facility] MCH (RBC) [Entitic mass] 30.7 pg 25.2 - 33.5 pg [facility] MCHC (RBC) [Mass/Vol] 33.8 g/dL 28.4 - 34.8 g/dL [facility] MCV (RBC) [Entitic vol] 91.0 fL 82.6 - 102.9 fL [facility] Monocytes/100 WBC (Bld) 5 % 3 - 12 % B ON [facility] NRBC Automated 0.0 0.0 per 100 WBC [facility] Platelet distribution width (Bld) [Ratio] 12.2 % 11.8 - 14.4 % [facility] Platelet mean volume (Bld) [Entitic vol] 10.5 fL 8.1 - 13.5 fL [facility] Platelets (Bld) [#/Vol] 301 10*3/uL [facility] RBC (Bld) [#/Vol] 3.87 10*6/uL Low 3.95 - 5.1 1 m/uL [facility] Segmented neutrophils/100 WBC (Bld) 69 % High 36 - 65 % [facility] Segs Absolute 8.40 High [facility] WBC (Bld) [#/Vol] 12.1 10*3/uL High [facility] CBC with Diffon 06-30-2022 Abs. Basophil 0.04 k/uL Normal 0.00-0.20 [facility] Comment on above: Performed By: #### L IP CDP, CP #### [address] [place] [address] Professional Services Specialist: Cholo Alicea MD Abs.Imm.Granulocyte 0.07 k/uL Normal 0.00-0.30 [facility] Comment on above: Performed By: #### L IP CDP, CP #### [address] [place], [facility]83 Professional Services Specialist: Cholo Alicea MD Abs.Neutrophil (Seg) 8.40 k/uL High 1.50-8.10 [facility] Comment on above: Performed By: #### L IP CDP, CP #### [address] [place], [facility]83 Professional Services Specialist: Cholo Alicea MD Basophils/100 WBC (Bld) 0 % Normal 0-2 [facility] Comment on above: Performed By: #### L IP, CDP, CP #### [address] [place], [facility]83 Professional Services Specialist: Cholo Alicea MD Eosinophils (Bld) [#/Vol] 0.06 10*3/uL Normal 0.00-0.44 [facility] Comment on above: Performed By: #### L IP, CDP, CP #### [facility] [address] [place] [address] Dr. [place], [facility]83 Professional Services Specialist: Cholo Alicea MD Eosinophils/100 WBC (Bld) 1 % Normal 1-4 [facility] Comment on above: Performed By: #### L IP, CDP, CP #### [address] [place], [facility]83 Professional Services Specialist: Cholo Alicea MD Erythrocyte distribution width (RBC) [Ratio] 12.2 % Normal 11.8-14.4 [facility] Comment on above: Performed By: #### L IP, CDP, CP #### [address] [place] [id number] Professional Services Specialist: Cholo Alicea MD Hematocrit (Bld) [Volume fraction] 35.2 % Low 36.3-47.1 [facility] Comment on above: Performed By: #### L IP, CDP, CP #### [address] [place], [facility]83 Professional Services Specialist: Cholo Alicea MD Hemoglobin (Bld) [Mass/Vol] 11.9 g/dL Normal 11.9-15.1 [facility] Comment on above: Performed By: #### L IP, CDP, CP #### [address] [place], [place] [address] Professional Services Specialist: Cholo Alicea MD Immature granulocytes/100 WBC (Bld) 1 % High 0 [facility] Comment on above: Performed By: #### L IP, CDP, CP #### [address] [place], [facility]83 Professional Services Specialist: Cholo Alicea MD Lymphocytes (Bld) [#/Vol] 2.91 10*3/uL Normal 1.10-3.70 [facility] Comment on above: Performed By: #### L IP, CDP, CP #### [address] [place], [facility]83 Professional Services Specialist: Cholo Alicea MD Lymphocytes/100 WBC (Bld) 24 % Normal 24-43 [facility] Comment on above: Performed By: #### L IP, CDP, CP #### [facility] [address] [place] [address] Dr. [place], [place] [id number] Professional Services Specialist: Cholo Alicea MD MCH (RBC) [Entitic mass] 30.7 pg Normal 25.2-33.5 [facility] Comment on above: Performed By: #### L IP, CDP, CP #### [address] [place], [place] 0634983 Professional Services Specialist: Cholo Alicea MD MCHC (RBC) [Mass/Vol] 33.8 g/dL Normal 28.4-34.8 [facility] Comment on above: Performed By: #### L IP, CDP, CP #### [address] [place], [facility]83 Professional Services Specialist: Cholo Alicea MD MCV (RBC) [Entitic vol] 91.0 fL Normal 82.6-102.9 [facility] Comment on above: Performed By: #### L IP, CDP, CP #### [address] [place], [place] [id number] Professional Services Specialist: Cholo Alicea MD Monocytes (Bld) [#/Vol] 0.66 10*3/uL Normal 0.10-1.20 [facility] Comment on above: Performed By: #### L IP, CDP, CP #### [address] [place], [place] [id number] Professional Services Specialist: Cholo Alicea MD Monocytes/100 WBC (Bld) 5 % Normal 3-12 [facility] Comment on above: Performed By: #### L IP, CDP, CP #### [address] [place], [place] [id number] Professional Services Specialist: Cholo Alicea MD Neutrophil (Seg) 69 % High 36-65 [facility] Comment on above: Performed By: #### L IP CDP, CP #### [address] [place], [place] [id number] Professional Services Specialist: Cholo Alicea MD NRBC Automated 0.0 per 100 WBC Normal 0.0 [facility] Comment on above: Performed By: #### L IP CDP, CP #### [address] [place], [facility]83 Professional Services Specialist: Cholo Alicea MD Platelet mean volume (Bld) [Entitic vol] 10.5 fL Normal 8.1-13.5 [facility] Comment on above: Performed By: #### L IP CDP, CP #### [address] [place] [id number] Professional Services Specialist: Cholo Alicea MD Platelets (Bld) [#/Vol] 301 10*3/uL Normal 138-453 [facility] Comment on above: Performed By: #### L TATA LOPEZ, CP #### [address] [place], [facility]83 Professional Services Specialist: Cholo Alicea MD RBC (Bld) [#/Vol] 3.87 10*6/uL Low 3.95-5.11 [facility] Comment on above: Performed By: #### L IP CDP, CP #### [address] [place], [facility]83 Professional Services Specialist: Cholo Alicea MD WBC (Bld) [#/Vol] 12.1 10*3/uL High 3.5-11.3 [facility] Comment on above: Performed By: #### L IP, CDP, CP #### [address] [place], [place] [id number] Professional Services Specialist: Cholo Alicea MD CMPon 06-30-2022 Albumin [Mass/Vol] 3.6 g/dL 3.5 - 5.2 g/dL [facility] Albumin/Globulin [Mass ratio] 1.1 {ratio} 1.0 - 2.5 [facility] ALP [Catalytic activity/Vol] 74 U/L 35 - 104 U/L [facility] ALT [Catalytic activity/Vol] 9 U/L 5 - 33 U/L [facility] Anion gap [Moles/Vol] 13 mmol/L 9 - 17 mmol/L [facility] AST [Catalytic activity/Vol] 18 U/L NINF - 32 U/L [facility] Bilirubin [Mass/Vol] mg/dL Low 0.3 - 1 .2 mg/dL [facility] Calcium [Mass/Vol] 9.5 mg/dL 8.6 - 10. 4 mg/dL [facility] Chloride [Moles/Vol] 101 mmol/L 98 - 10 7 mmol/L [facility] CO2 [Moles/Vol] 21 mmol/L 20 - 31 mmol/L [facility] Creatinine [Mass/Vol] 0.55 mg/dL 0.50 - 0.90 mg/dL [facility] GFR/1.73 sq M.predicted MDRD (S/P/Bld) [Vol rate/Area] - PINF [facility] Comment on above: These results are [...] [Mass/Vol] 84 mg/dL 70 - 99 mg/dL [facility] Interpretation and review of laboratory results Abnormal [facility] Potassium [Moles/Vol] 3.8 mmol/L 3.7 - 5.3 mmol/L [facility] Protein [Mass/Vol] 6.9 g/dL 6.4 - 8.3 g/dL [facility] Sodium [Moles/Vol] 135 mmol/L 135 - 144 mmol/L [facility] Urea nitrogen [Mass/Vol] 8 mg/dL 6 - 20 mg/dL [facility] Urea nitrogen/Creatinine (Bld) [Mass ratio] 15 9 - 20 [facility] Comp Metabolic Profon 2022 Bilirubin [Mass/Vol] mg/dL Low 0.3-1.2 [facility] Comment on above: Performed By: #### L IP, CDP, CP #### [facility] [address] [place] [address] Dr. [place], [place] [phone] Professional Services Specialist: Cholo Alicea MD Albumin [Mass/Vol] 3.6 g/dL Normal 3.5-5.2 [facility] Comment on above: Performed By: #### L IP CDP, CP #### [address] [place], [place] [id number] Professional Services Specialist: Cholo Alicea MD Albumin/Glob Ratio 1.1 Normal 1.0-2.5 [facility] Comment on above: Performed By: #### L JESSICA CDP, CP #### [address] [place], [place] [id number] Professional Services Specialist: Cholo Alicea MD Alkaline Phos 74 U/L Normal 35-104 [facility] Comment on above: Performed By: #### L IP CDP, CP #### [facility] [address] [place] [address] Dr. [place], [place] [phone] Professional Services Specialist: Cholo Alicea MD ALT [Catalytic activity/Vol] 9 U/L Normal 5-33 [facility] Comment on above: Performed By: #### L IP, CDP, CP #### [address] [place] [address] Professional Services Specialist: Cholo Alicea MD Anion gap [Moles/Vol] 13 mmol/L Normal 9-17 [facility] Comment on above: Performed By: #### L IP, CDP, CP #### [facility] [address] [place] [address] Dr. [place], [place] [id number] Professional Services Specialist: Cholo Alicea MD AST [Catalytic activity/Vol] 18 U/L Normal <32 [facility] Comment on above: Performed By: #### L IP, CDP, CP #### [facility] [address] [place], [place] [phone] Professional Services Specialist: Cholo Alicea MD BUN/CRE Ratio 15 Normal 9-20 [facility] Comment on above: Performed By: #### L IP, CDP, CP #### [address] [place], [place] 7341583 Professional Services Specialist: Cholo Alicea MD Calcium [Mass/Vol] 9.5 mg/dL Normal 8.6-10.4 [facility] Comment on above: Performed By: #### L IP, CDP, CP #### [address] [place], [place] [id number] Professional Services Specialist: Cholo Alicea MD Chloride [Moles/Vol] 101 mmol/L Normal 98-107 [facility] Comment on above: Performed By: #### L IP, CDP, CP #### [address] [place], [place] [id number] Professional Services Specialist: Cholo Alicea MD CO2 [Moles/Vol] 21 mmol/L Normal 20-31 [facility] [place] Comment on above: Performed By: #### L IP, CDP, CP #### [facility] [address] [place] [address] Dr. [place], [place] [phone] Professional Services Specialist: Cholo Alicea MD Creatinine [Mass/Vol] 0.55 mg/dL Normal 0.50-0.90 [facility] Comment on above: Performed By: #### L IP, CDP, CP #### [address] [place], [place] [id number] Professional Services Specialist: Cholo Alicea MD GFR/1.73 sq M.predicted among non-blacks MDRD (S/P/Bld) [Vol rate/Area] mL/min/{1.73_m2} Normal >60 [facility] Comment on above: Result Comment: These [...] By: #### L IP, CDP, CP #### [facility] [address] [place] [address] [place] [address] Professional Services Specialist: Cholo Alicea MD Glucose [Mass/Vol] 84 mg/dL Normal 70-99 [facility] Comment on above: Performed By: #### L JESSICA CDP, CP #### [address] [place] [address] Professional Services Specialist: Cholo Alicea MD Potassium [Moles/Vol] 3.8 mmol/L Normal 3.7-5.3 [facility] Comment on above: Performed By: #### L JESSICA CDP, CP #### [address] [place] [address] Professional Services Specialist: Cholo Alicea MD Protein [Mass/Vol] 6.9 g/dL Normal 6.4-8.3 [facility] Comment on above: Performed By: #### L IP, CDP, CP #### [facility] [address] [place] [address] [place] [address] Professional Services Specialist: Cholo Alicea MD Sodium [Moles/Vol] 135 mmol/L Normal 135-144 [facility] Comment on above: Performed By: #### L IP, CDP, CP #### [facility] [address] [place] [address] Professional Services Specialist: Cholo Alicea MD Urea nitrogen [Mass/Vol] 8 mg/dL Normal 6-20 [facility] Comment on above: Performed By: #### L TATA LOPEZ, CP #### [facility] [address] [place] [address] Professional Services Specialist: Cholo Alicea MD Lipaseon 06-30-2022 Lipase [Catalytic activity/Vol] 30 U/L Normal 13-60 [facility] Comment on above: Performed By: #### L TATA LOPEZ, CP #### [facility] [address] [place] [address] Professional Services Specialist: Cholo Alicea MD Lipase [Catalytic activity/Vol] 30 U/L 13 - 60 U/L [facility] Microscopic Urinalysison Bacteria, UA 2+ Abnormal None [facility] Epithelial Cells UA 0 TO 2 [facility] Interpretation and review of laboratory results Abnormal [facility] Mucus, UA 3+ Abnormal None [facility] RBC clumps Auto (Urine sed) [#/Area] 0 TO 2 [facility] WBC, UA 0 TO 2 [facility] PTon 06-30-2022 INR Coag (PPP) [Relative time] 1.0 {INR} Normal [facility] Comment on above: Result Comment: Therapeutic Range: Moderate Anticoagulant Intensity: INR = 2.0-3.0 High Anticoagulant Intensity: INR = 2.5-3.5 Performed By: #### L TATA LOPEZ, CP #### [facility] [address] [place] [address] [place] [address] Professional Services Specialist: Cholo Alicea MD PT Coag (PPP) [Time] 13.3 s Normal 11.5-14.2 [facility] Comment on above: Performed By: #### L TATA LOPEZ, CP #### [facility] [address] [place] [address] [place] [address] Professional Services Specialist: Cholo Alicea MD Protime-INRon 02-01-2023 INR Coag (PPP) [Relative time] 1.0 {INR} [facility] Comment on above: Therapeutic Range: Moderate Anticoagulant Intensity: INR = 2.0-3.0 High Anticoagulant Intensity: INR = 2.5-3.5 PT Coag (PPP) [Time] 13.3 s [facility] UA w/Reflex Cultureon 2022 Bilirubin, SemiQt,Ur Negative Normal NEG [facility] Comment on above: Performed By: #### U MICAO, UAX #### [facility] [address] [place] [address] Professional Services Specialist: Cholo Alicea MD Blood, Urine Negative Normal NEG [facility] Comment on above: Performed By: #### U MICAO, UAX #### [facility] [address] [place] [address] Professional Services Specialist: Cholo Alicea MD Clarity (U) Clear Normal CLEAR [facility] Comment on above: Performed By: #### U MICAO, UAX #### [facility] [address] [place] [address] Professional Services Specialist: Cholo Alicea MD Color (U) Yellow Normal YEL [facility] Comment on above: Performed By: #### U MICAO, UAX #### [facility] [address] [place] [address] Professional Services Specialist: Cholo Alicea MD Glucose Ql (U) Negative Normal NEG [facility] Comment on above: Performed By: #### U MICAO, UAX #### [facility] [address] [place] [address] Professional Services Specialist: Cholo Alicea MD Ketones Ql (U) Negative Normal NEG [facility] Comment on above: Performed By: #### U MICAO, UAX #### [facility] [address] [place] [address] Professional Services Specialist: Cholo Alicea MD Leukocyte esterase Test strip Ql (U) Negative Normal NEG [facility] Comment on above: Performed By: #### U MICAO, UAX #### [facility] [address] [place], [place] [id number] Professional Services Specialist: Cholo Alicea MD Nitrite,Ur Negative Normal NEG [facility] Comment on above: Performed By: #### U MICAO, UAX #### [facility] [address] [place] [address] Professional Services Specialist: Cholo Alicea MD PH,Ur 6.0 Normal 5.0-9.0 [facility] Comment on above: Performed By: #### U MICAO, UAX #### [facility] [address] [place], [place] [id number] Professional Services Specialist: Cholo Alicea MD Protein Ql (U) Negative Normal NEG [facility] Comment on above: Performed By: #### U MICAO, UAX #### [facility] [address] [place] [address] [place], [place] [phone] Professional Services Specialist: Cholo Alicea MD Spec. Carver,Ur 1.025 High 1.010-1.020 [facility] Comment on above: Performed By: #### U MICAO, UAX #### [facility] [address] [place] [address] [place], [place] [id number] Professional Services Specialist: Cholo Alicea MD Urobilinogen,Ur Normal Normal NORM [facility] [place] Comment on above: Performed By: #### U MICAO, UAX #### [facility] [address] [place], [place] [id number] Professional Services Specialist: Cholo Alicea MD Urinalysis with Reflex to Cu ltureon 06-30-2022 Bilirubin Urine Negative NEGATIVE [facility] Color, UA Yellow Yellow [facility] Glucose Auto test strip (U) [Mass/Vol] Negative NEGATIVE [facility] Interpretation and review of laboratory results Abnormal [facility] Ketones (U) [Mass/Vol] Negative NEGATIVE [facility] Leukocyte esterase Auto test strip Ql (U) Negative NEGATIVE [facility] Nitrite Auto test strip Ql (U) Negative NEGATIVE [facility] Protein (U) [Mass/Vol] 6.0 mg/dL 5.0 - 9.0 [facility] Protein (U) [Mass/Vol] Negative NEGATIVE [facility] Specific Carver, UA 1.025 High 1.010 - 1.020 [facility] Turbidity UA Clear Clear [facility] Urine Hgb Negative NEGATIVE [facility] Urobilinogen, Urine Normal Normal [facility] Urinalysis,Microon 3 Bacteria 2+ Abnormal [facility] Comment on above: Performed By: #### U MICAO, UAX #### [facility] [address] [place] [address] [address] [id number] Professional Services Specialist: Cholo Alicea MD Epithelial cells LM Ql (Urine sed) 0 TO 2 Normal 0-25 [facility] Comment on above: Performed By: #### U MICAO, UAX #### [facility] [address] [place] [address] [address] [id number] Professional Services Specialist: Cholo Alicea MD Mucus Strands 3+ Abnormal [facility] Comment on above: Performed By: #### U MICAO, UAX #### [facility] [address] [place], [facility] Professional Services Specialist: Cholo Alicea MD Urine RBC's 0 TO 2 Normal 0-2 [facility] Comment on above: Performed By: #### U MICAO, UAX #### [facility] [address] [place] [address] Professional Services Specialist: Cholo Alicea MD Urine WBC's 0 TO 2 Normal 0-5 [facility] Comment on above: Performed By: #### U MICAO, UAX #### [facility] [address] [place] [address] Professional Services Specialist: Cholo Alicea MD No Panel Informationon 06-17 Body mass index (BMI) [Percentile] Per age and sex 0.1 {percentile} Invalid Interpretation Code 3Jam [id number] Per age and sex 0.1 {percentile} Invalid Interpretation Code 3Jam HEP B SURFACE ANTIGEN SCREEN on 06-08-2022 HBsAg Screen Negative Normal Negative [facility] Comment on above: Performed By: #### U ACSIND #### [facility] [address] [place] [address] Dr. Adrianna Caldera HEPATITIS C VIRUS AB W/ REFL EX QUANTon 06-08-2022 HCV AB <0.1 Normal 0.0-0.9 [facility] Comment on above: Performed By: #### U ACSIND #### [facility] [address] [place] [address] Dr. Adrianna Caldera Interpretation: Comment Normal [facility] Comment on above: Result Comment: Nega tive Not infected with HCV, unless recent infection is suspected or other evidence exists to indicate HCV infection. Performed By: #### U ACSIND #### [facility] [address] [place] [address] Dr. Adrianna Caldera HIV 1 AND 2 WITH REFLEXon HIV Screen 4th Generation wRfx Non-Reactive Normal Non Reactive [facility] Comment on above: Result Comment: HIV Negative HIV-1/HIV-2 antibodies and HIV-1 p24 antigen were NOT detected. There is no laboratory evidence of HIV infection. Performed By: #### U ACSIND #### [facility] [address] [place] [address] Dr. Adrianna Caldera RPR QUANTon 06-08-2022 Rapid Plasma Reagin, Quant Non-Reactive Normal NonRea<1:1 [facility] Comment on above: Result Comment: Plea se Note: This test does not meet current guidelines for screening and diagnosis of syphilis. This test is intended for following treatment response in patients being treated for syphilis infection. To screen for syphilis infection, a reflex cascade that includes both RPR and a treponema-specific assay should be utilized, such as Treponema pallidum (Syphilis) Screening Foster (842858) or Rapid Plasma Reagin (RPR) Test With Reflex to Quantitative RPR and Confirmatory Treponema pallidum Antibodies (024204). Performed By: #### U ACSIND #### [facility] [address] [place] [address] Dr. Adrianna Caldera RUBELLA AB IGGon 06-08-2022 Rubella Antibodies, IgG 4.69 index Normal Immu ne >0.99 [facility] Comment on above: Result Comment: Non- immune <0.90 Equivocal 0.90 - 0.99 Immune >0.99 Performed By: #### R UBIGG ####[facility] [address] [place] [address]Dr. Adrianna Caldera CBC AUTO DIFFon 06-05-2022 BASO # 0.0 103/ul Normal 0.0-0.1 [facility] Comment on above: Performed By: #### C BC #### [facility] [address] [place] [address] Dr. Adrianna Caldera Basophils/100 WBC (Bld) 0.3 % Normal 0.2-2.0 [facility] Comment on above: Performed By: #### C BC #### [facility] [address] [place] [address] Dr. Adrianna Caldera EO # 0.1 103/ul Normal 0.0-0.7 [facility] Comment on above: Performed By: #### C BC #### [facility] [address] [place] [address] Dr. Adrianna Caldera Eosinophils/100 WBC (Bld) 0.6 % Critically low 0.9-7.0 [facility] Comment on above: Performed By: #### C BC #### [facility] [address] [place] [address] Dr. Adrianna Caldera Erythrocyte distribution width (RBC) [Ratio] 11.7 % Normal 11.0-15.0 [facility] Comment on above: Performed By: #### C BC #### [facility] [address] [place] [address] Dr. Adrianna Caldera Hematocrit (Bld) [Volume fraction] 33.8 % Critically low 36.0-48.0 [facility] Comment on above: Performed By: #### C BC #### [facility] [address] [place] [address] [address] Adrianna Caldera Hemoglobin (Bld) [Mass/Vol] 12.6 g/dL Normal 12.0-16.0 [facility] Comment on above: Performed By: #### C BC #### [facility] [address] [place] [address] Dr. Adrianna Caldera IG # 0.05 10e3/ul Critically high 0.00-0.03 [facility] Comment on above: Performed By: #### C BC #### [facility] [address] [place] [address] Dr. Adrianna Caldera IG % 0.4 % Normal 0.0-0.5 [facility] Comment on above: Performed By: #### C BC #### [facility] [address] [place] [address] Dr. Adrianna Caldera LYMPH # 2.4 103/ul Normal 1.2-3.8 [facility] Comment on above: Performed By: #### C BC #### [facility] [address] [place] [address] Dr. Adrianna Caldera Lymphocytes/100 WBC (Bld) 21.1 % Normal 20.5-60.0 [facility] Comment on above: Performed By: #### C BC #### [facility] [address] [place] [address] Dr. Adrianna Caldera MANUAL DIFF REQ NO Normal [facility] Comment on above: Performed By: #### C BC #### [facility] [address] [place] [address] Dr. Adrianna Caldera MCH (RBC) [Entitic mass] 30.3 pg Normal 26.7-34.0 [facility] Comment on above: Performed By: #### C BC #### [facility] [address] [address] [address] Adrianna Caldera MCHC (RBC) [Mass/Vol] 37.3 g/dL Critically high 29.9-35.2 [facility] Comment on above: Performed By: #### C BC #### [facility] [address] [address] [address] Adrianna Caldera MCV (RBC) [Entitic vol] 81.3 fL Normal 81.0-99.0 [facility] Comment on above: Performed By: #### C BC #### [facility] [address] [place] [address] [address] Adrianna Caldera MONO # 0.6 103/ul Normal 0.3-0.8 [facility] Comment on above: Performed By: #### C BC #### [facility] [address] [place] [address] [address] Adrianna Caldera Monocytes/100 WBC (Bld) 5.4 % Normal 1.7-12.0 [facility] Comment on above: Performed By: #### C BC #### [facility] [address] [place] [address] [address] Adrianna Caldera NEUT # 8.3 103/ul Critically high 1.4-6.5 [facility] Comment on above: Performed By: #### C BC #### [facility] [address] [address] [address] Adrianna Caldera Neutrophils/100 WBC (Bld) 72.2 % Normal 43.0-75.0 [facility] Comment on above: Performed By: #### C BC #### [facility] [address] [address] [address] Adrianna Caldera Platelet mean volume (Bld) [Entitic vol] 10.6 fL Normal 9.5-13.5 [facility] Comment on above: Performed By: #### C BC #### [facility] [address] [place] [address] [address] Adrianna Caldera PLT 253 103/ul Normal 150-450 [facility] Comment on above: Performed By: #### C BC #### [facility] [address] [address] [address] Adrianna Caldera RBC 4.16 106/ul Critically low 4.20-5.40 [facility] Comment on above: Performed By: #### C BC #### [facility] [address] [place] [address] [address] Adrianna Caldera WBC 11.6 103/ul Critically high 4.0-11.0 [facility] Comment on above: Performed By: #### C BC #### [facility] [address] [place] [address] [address] Adrianna Caldera CULTURE URINEon 06-05-2022 CULTURE URINE Culture Observations: LIGHT GROWTH OF MIXED GENITAL JIGAR. NO POTENTIAL PATHOGENS SEEN. Normal [facility] Comment on above: Performed By: #### U RCX ####[facility] [id number] [place] [address]Dr. Adrianna Caldera GLYCOHEMOGLOBIN A1Con 2022 ADA RECOMMENDATION SEE BELOW Normal [facility] Comment on above: Result Comment: ADA RECOMMENDED LIMIT 4.0 - 6.0 ADA THERAPEUTIC TARGET < 7.0 ACTION SUGGESTED > 7.0 Performed By: #### P REGQNT #### [facility] [address] [address] [address] Adrianna Caldera Glucose [Mass/Vol] 105 mg/dL Normal [facility] Comment on above: Performed By: #### P REGQNT #### [facility] [address] [address] [address] Adrianna Caldera HbA1c (Bld) [Mass fraction] 5.3 % Normal 4.5-6.2 [facility] Comment on above: Performed By: #### P REGQNT #### [facility] [address] [address] [address] Adrianna Caldera TYPE AND SCREENon 06-05-2022 TYPE AND SCREEN Negative Normal [facility] Comment on above: Performed By: #### T NS ####[facility] [id number] [place] [address]Dr. Adrianna Caldera US PREG <14 WKSon 05-27-2022 [...] GOVIND JOHNSTON Date: 2022-05-26 22:31 Normal [facility] CBC AUTO DIFFon 05-26-2022 BASO # 0.1 103/ul Normal 0.0-0.1 [facility] Comment on above: Performed By: #### U ACSIND #### [facility] [address] [place], [place] [address] Dr. Adrianna Caldera Basophils/100 WBC (Bld) 0.5 % Normal 0.2-2.0 [facility] Comment on above: Performed By: #### U ACSIND #### [facility] [address] [place], [place] [address] Dr. Adrianna Caldera EO # 0.1 103/ul Normal 0.0-0.7 [facility] Comment on above: Performed By: #### U ACSIND #### [facility] [address] [place] [address] [address] Adrianna Caldera Eosinophils/100 WBC (Bld) 0.5 % Critically low 0.9-7.0 [facility] Comment on above: Performed By: #### U ACSIND #### [facility] [address] [place] [address] Dr. Adrianna Caldera Erythrocyte distribution width (RBC) [Ratio] 11.9 % Normal 11.0-15.0 [facility] Comment on above: Performed By: #### U ACSIND #### [facility] [address] [place] [address] Dr. Adrianna Caldera Hematocrit (Bld) [Volume fraction] 37.5 % Normal 36.0-48.0 [facility] Comment on above: Performed By: #### U ACSIND #### [facility] [address] [place] [address] Dr. Adrianna Caldera Hemoglobin (Bld) [Mass/Vol] 12.8 g/dL Normal 12.0-16.0 [facility] Comment on above: Performed By: #### U ACSIND #### [facility] [address] [place] [address] Dr. Adrianna Caldera IG # 0.04 10e3/ul Critically high 0.00-0.03 [facility] Comment on above: Performed By: #### U ACSIND #### [facility] [address] [place] [address] Dr. Adrianna Caldera IG % 0.4 % Normal 0.0-0.5 [facility] Comment on above: Performed By: #### U ACSIND #### [facility] [address] [place] [address] Dr. Adrianna Caldera LYMPH # 3.0 103/ul Normal 1.2-3.8 [facility] Comment on above: Performed By: #### U ACSIND #### [facility] [address] [place] [address] Dr. Adrianna Caldera Lymphocytes/100 WBC (Bld) 27.0 % Normal 20.5-60.0 [facility] Comment on above: Performed By: #### U ACSIND #### [facility] [address] [place] [address] [address] Adrianna Caldera MANUAL DIFF REQ NO Normal [facility] Comment on above: Performed By: #### U ACSIND #### [facility] [address] [place] [address] [address] Adrianna Caldear MCH (RBC) [Entitic mass] 29.8 pg Normal 26.7-34.0 [facility] Comment on above: Performed By: #### U ACSIND #### [facility] [address] [place] [address] [address] Adrianna Caldera MCHC (RBC) [Mass/Vol] 34.1 g/dL Normal 29.9-35.2 [facility] Comment on above: Performed By: #### U ACSIND #### [facility] [address] [place] [address] [address] Adrianna Caldera MCV (RBC) [Entitic vol] 87.4 fL Normal 81.0-99.0 [facility] Comment on above: Performed By: #### U ACSIND #### [facility] [address] [place] [address] [address] Adrianna Caldera MONO # 0.7 103/ul Normal 0.3-0.8 [facility] Comment on above: Performed By: #### U ACSIND #### [facility] [address] [place] [address] [address] Adrianna Caldera Monocytes/100 WBC (Bld) 6.3 % Normal 1.7-12.0 [facility] Comment on above: Performed By: #### U ACSIND #### [facility] [address] [place] [address] [address] Adrianna Caldera NEUT # 7.2 103/ul Critically high 1.4-6.5 [facility] Comment on above: Performed By: #### U ACSIND #### [facility] [address] [place] [address] [address] Adrianna Caldera Neutrophils/100 WBC (Bld) 65.3 % Normal 43.0-75.0 [facility] Comment on above: Performed By: #### U ACSIND #### [facility] [address] [place], [place] [address] Dr. Adrianna Caldera Platelet mean volume (Bld) [Entitic vol] 10.3 fL Normal 9.5-13.5 [facility] Comment on above: Performed By: #### U ACSIND #### [facility] [address] [place] [address] [address] Adrianna Caldera PLT 316 103/ul Normal 150-450 [facility] Comment on above: Performed By: #### U ACSIND #### [facility] [address] [place], [place] [address] Dr. Adrianna Caldera RBC 4.29 106/ul Normal 4.20-5.40 [facility] Comment on above: Performed By: #### U ACSIND #### [facility] [address] [place] [address] [address] Adrianna Caldera WBC 11.0 103/ul Normal 4.0-11.0 [facility] Comment on above: Performed By: #### U ACSIND #### [facility] [address] [place] [address] [address] ABD/PELV W CONon [...] No obstructive uropathy. Electronically authenticated by: ISIDRO AUSTIN Date: 2022-05-26 19:39 Normal [facility] SARS-CoV-2 (COVID-19) RNA ALEKSANDER+probe Ql (Unsp spec) Not detected Normal NOT DETECTED [facility] Comment on above: Result Comment: When [...] for this test is supported by the [employer] of Health and Human Service's declaration that [...] used). Performed By: #### U ACSIND #### [facility] [address] [place] [address] Dr. dArianna Caldera ER URINE PROFILEon 2 Bilirubin Ql (U) Negative Normal NEGATIVE [facility] Comment on above: Performed By: #### P REGQNT #### [facility] [address] [place] [address] Dr. Adrianna Caldera Clarity (U) CLEAR Normal CLEAR [facility] Comment on above: Performed By: #### P REGQNT #### [facility] [address] [place] [address] Dr. Adrianna Caldera Color (U) YELLOW Normal YELLOW [facility] Comment on above: Performed By: #### P REGQNT #### [facility] [address] [place] [address] [address] Adrianna LINARES A micrscopic examination will be performed if indicated. Normal [facility] Comment on above: Performed By: #### P REGQNT #### [facility] [address] [place] [address] Dr. Adrianna Caledra Glucose Ql (U) Negative Normal NEGATIVE [facility] Comment on above: Performed By: #### P REGQNT #### [facility] [address] [address] [address] Adrianna Caldera Hemoglobin Ql (U) Negative Normal NEGATIVE [facility] Comment on above: Performed By: #### P REGQNT #### [facility] [address] [place] [address] Dr. Adrianna Caldera Ketones Ql (U) 15 mg/dl Abnormal NEGATIVE [facility] Comment on above: Performed By: #### P REGQNT #### [facility] [facility] [address] [place] [address] Dr. Adrianna Caldera LEUKOCYTES Negative Normal NEGATIVE [facility] Comment on above: Performed By: #### P REGQNT #### [facility] [address] [place] [address] Dr. Adrianna Caldera Nitrite Ql (U) Negative Normal NEGATIVE [facility] Comment on above: Performed By: #### P REGQNT #### [facility] [address] [place] [address] Dr. Adrianna Caldera pH (U) 7.5 [pH] Normal 5-9 [facility] Comment on above: Performed By: #### P REGQNT #### [facility] [address] [place] [address] Dr. Adrianna Caldera SPEC GRAVITY 1.020 Normal 1.005-<=1.0 25 [facility] Comment on above: Performed By: #### P REGQNT #### [facility] [address] [place] [address] Dr. Adrianna Caldera UA PROTEIN Negative Normal NEGATIVE/ TRACE [facility] Comment on above: Performed By: #### P REGQNT #### [facility] [address] [address] [address] Adrianna Caldera UR MICRO IND NOT INDICATED Normal [facility] Comment on above: Performed By: #### P REGQNT #### [facility] [address] [place] [address] Dr. Adrianna Caldera Urobilinogen Qn (U) 0.2 {Micheal'U}/dL Normal 0.2 - 1. 0 [facility] Comment on above: Performed By: #### P REGQNT #### [facility] [address] [place] [address] Dr. Adrianna Caldera LIPASEon 05-26-2022 Lipase [Catalytic activity/Vol] 116.0 U/L Normal 73.0-393.0 [facility] Comment on above: Performed By: #### L IPA, CMP #### [facility] [address] [place] [address] Dr. Adrianna Caldera PROF 14(COMP METB)on 022 Albumin [Mass/Vol] 3.6 g/dL Normal 3.4-5.0 [facility] Comment on above: Performed By: #### L IPA, CMP #### [facility] [address] [place] [address] Dr. Adrianna Caldera Albumin/Globulin [Mass ratio] 0.9 {ratio} Normal [facility] Comment on above: Performed By: #### L IPA, CMP #### [facility] [address] [place] [address] Dr. Adrianna Caldera ALP [Catalytic activity/Vol] 57 U/L Normal 46-116 [facility] Comment on above: Performed By: #### L IPA, CMP #### [facility] [address] [place] [address] Dr. Adrianna Caldera ALT [Catalytic activity/Vol] 13 U/L Critically low 14-59 [facility] Comment on above: Performed By: #### L IPA, CMP #### [facility] [address] [place] [address] Dr. Adrianna Caldera Anion gap [Moles/Vol] 10.6 mmol/L Normal [facility] Comment on above: Performed By: #### L IPA, CMP #### [facility] [address] [address] [address] Adrianna Caldera AST [Catalytic activity/Vol] 12 U/L Critically low 15-37 [facility] Comment on above: Performed By: #### L IPA, CMP #### [facility] [address] [address] [address] Adrianna Caldera Bilirubin [Mass/Vol] 0.2 mg/dL Normal 0.2-1.0 [facility] Comment on above: Performed By: #### L IPA, CMP #### [facility] [address] [address] [address] Adrianna Caldera Calcium [Mass/Vol] 8.9 mg/dL Normal 8.5-10.1 [facility] Comment on above: Performed By: #### L IPA, CMP #### [facility] [address] [address] [address] Adrianna Caldera Chloride [Moles/Vol] 102 mmol/L Normal 98-107 [facility] Comment on above: Performed By: #### L IPA, CMP #### [facility] [address] [address] [address] Adrianna Caldera CO2 [Moles/Vol] 26.0 mmol/L Normal 21.0-32.0 [facility] Comment on above: Performed By: #### L IPA, CMP #### [facility] [address] [address] [address] Adrianna Caldera Creatinine [Mass/Vol] 0.61 mg/dL Normal 0.55-1.02 [facility] Comment on above: Performed By: #### L IPA, CMP #### [facility] [address] [address] [address] Adrianna Caldera EGFR-AF IVORIAN >60 Normal >=60 [facility] Comment on above: Performed By: #### L IPA, CMP #### [facility] [address] [address] [address] Adrianna Caldera EGFR-NON AF IVORIAN >60 Normal >=60 [facility] Comment on above: Performed By: #### L IPA, CMP #### [facility] [address] [address] [address] Adrianna Caldera Globulin (S) [Mass/Vol] 3.8 g/dL Normal [facility] Comment on above: Performed By: #### L IPA, CMP #### [facility] [address] [address] [address] Adrianna Caldera Glucose [Mass/Vol] 82 mg/dL Normal 74-106 [facility] Comment on above: Performed By: #### L IPA, CMP #### [facility] [address] [address] [address] Adrianna Caldera Potassium [Moles/Vol] 3.6 mmol/L Normal 3.5-5.1 [facility] Comment on above: Performed By: #### L IPA, CMP #### [facility] [address] [place] [address] Dr. Adrianna Caldera Protein [Mass/Vol] 7.4 g/dL Normal 6.4-8.2 [facility] Comment on above: Performed By: #### L IPA, CMP #### [facility] [address] [address] [address] Adrianna Caldera Sodium [Moles/Vol] 135 mmol/L Critically low 136-145 [facility] Comment on above: Performed By: #### L IPA, CMP #### [facility] [address] [place] [address] Dr. Adrianna Caldera Urea nitrogen [Mass/Vol] 9.0 mg/dL Normal 7.0-18.0 [facility] Comment on above: Performed By: #### L IPA, CMP #### [facility] [address] [place] [address] Dr. Adrianna Caldera Urea nitrogen/Creatinine [Mass ratio] 14.8 mg/mg Normal [facility] Comment on above: Performed By: #### L IPA, CMP #### [facility] [address] [place] [address] Dr. Adrianna Caldera No Panel Informationon 05-17 Body mass index (BMI) [Percentile] Per age and sex 0.1 {percentile} Invalid Interpretation Code 3Jam [id number] Per age and sex 0.1 {percentile} Invalid Interpretation Code 3Jam US PREG TVon 05-01-2022 US PREG TV [...] by: KAROL SIDDIQUI Date: 2022-04-30 22:06 Normal [facility] US PREG TVon 04-08-2022 US PREG [...] by: KAROL SIDDIQUI Date: 2022-04-08 17:08 Normal [facility] US PELVIS TRANSVAGon 022 US PELVIS [...] CINDY NOGUEIRA Date: 2022-03-22 22:47 Normal [facility] CBC AUTO DIFFon 03-22-2022 BASO # 0.1 103/ul Normal 0.0-0.1 [facility] Comment on above: Performed By: #### U ACSIND #### [facility] [address] [address] [address] Adrianna Caldera Basophils/100 WBC (Bld) 0.5 % Normal 0.2-2.0 [facility] Comment on above: Performed By: #### U ACSIND #### [facility] [address] [address] [address] Adrianna Caldera EO # 0.1 103/ul Normal 0.0-0.7 [facility] Comment on above: Performed By: #### U ACSIND #### [facility] [address] [address] [address] Adrianna Caldera Eosinophils/100 WBC (Bld) 0.6 % Critically low 0.9-7.0 [facility] Comment on above: Performed By: #### U ACSIND #### [facility] [address] [address] [address] Adrianna Caldera Erythrocyte distribution width (RBC) [Ratio] 12.6 % Normal 11.0-15.0 [facility] Comment on above: Performed By: #### U ACSIND #### [facility] [address] [address] [address] Adrianna Caldera Hematocrit (Bld) [Volume fraction] 40.0 % Normal 36.0-48.0 [facility] Comment on above: Performed By: #### U ACSIND #### [facility] [address] [address] [address] Adrianna Caldera Hemoglobin (Bld) [Mass/Vol] 13.6 g/dL Normal 12.0-16.0 [facility] Comment on above: Performed By: #### U ACSIND #### [facility] [address] [address] [address] Adrianna Caldera IG # 0.03 10e3/ul Normal 0.00-0.03 [facility] Comment on above: Performed By: #### U ACSIND #### [facility] [address] [address] [address] Adrianna Caldera IG % 0.3 % Normal 0.0-0.5 [facility] Comment on above: Performed By: #### U ACSIND #### [facility] [address] [place] [address] Dr. Adrianna Caldera LYMPH # 4.4 103/ul Critically high 1.2-3.8 [facility] Comment on above: Performed By: #### U ACSIND #### [facility] [address] [place] [address] Dr. Adrianna Caldera Lymphocytes/100 WBC (Bld) 38.4 % Normal 20.5-60.0 [facility] Comment on above: Performed By: #### U ACSIND #### [facility] [address] [place] [address] Dr. Adrianna Caldera MANUAL DIFF REQ NO Normal [facility] Comment on above: Performed By: #### U ACSIND #### [facility] [address] [address] [address] Adrianna Caldera MCH (RBC) [Entitic mass] 30.2 pg Normal 26.7-34.0 [facility] Comment on above: Performed By: #### U ACSIND #### [facility] [address] [place] [address] Dr. Adrianna Caldera MCHC (RBC) [Mass/Vol] 34.0 g/dL Normal 29.9-35.2 [facility] Comment on above: Performed By: #### U ACSIND #### [facility] [address] [address] [address] Adrianna Caldera MCV (RBC) [Entitic vol] 88.9 fL Normal 81.0-99.0 [facility] Comment on above: Performed By: #### U ACSIND #### [facility] [address] [address] [address] Adrianna Caldera MONO # 0.7 103/ul Normal 0.3-0.8 [facility] Comment on above: Performed By: #### U ACSIND #### [facility] [address] [place] [address] Dr. Adrianna Caldera Monocytes/100 WBC (Bld) 6.2 % Normal 1.7-12.0 [facility] Comment on above: Performed By: #### U ACSIND #### [facility] [address] [place] [address] Dr. Adrianna Caldera NEUT # 6.1 103/ul Normal 1.4-6.5 [facility] Comment on above: Performed By: #### U ACSIND #### [facility] [address] [place] [address] Dr. Adrianna Caldera Neutrophils/100 WBC (Bld) 54.0 % Normal 43.0-75.0 [facility] Comment on above: Performed By: #### U ACSIND #### [facility] [address] [place] [address] Dr. Adrianna Caldera Platelet mean volume (Bld) [Entitic vol] 10.9 fL Normal 9.5-13.5 [facility] Comment on above: Performed By: #### U ACSIND #### [facility] [address] [place] [address] Dr. Adrianna Caldera PLT 277 103/ul Normal 150-450 [facility] Comment on above: Performed By: #### U ACSIND #### [facility] [address] [place] [address] Dr. Adrianna Caldera RBC 4.50 106/ul Normal 4.20-5.40 [facility] Comment on above: Performed By: #### U ACSIND #### [facility] [address] [address] [address] Adrianna Caldera WBC 11.3 103/ul Critically high 4.0-11.0 [facility] Comment on above: Performed By: #### U ACSIND #### [facility] [address] [address] [address] Adrianna Caldera ER URINE PROFILEon 2 Bilirubin Ql (U) Negative Normal NEGATIVE [facility] Comment on above: Performed By: #### P REGU, ERUR ####[facility] [address] [place], [place] [address]Dr. Adrianna Caldera Clarity (U) CLEAR Normal CLEAR [facility] Comment on above: Performed By: #### P REGU, ERUR ####[facility] [address] [place], [place] [address]Dr. Adrianna Caldera Color (U) LT. YELLOW Normal YELLOW [facility] Comment on above: Performed By: #### P REGU, ERUR ####[facility] [address] [place], [place] [address]Dr. Adrianna MORALESD A micrscopic examination will be performed if indicated. Normal [facility] Comment on above: Performed By: #### P REGU, ERUR ####[facility] [address] [place], [place] [address]Dr. Adrianna Caldera Glucose Ql (U) Negative Normal NEGATIVE [facility] Comment on above: Performed By: #### P REGU, ERUR ####[facility] [address] [place], [place] [address]Dr. Adrianna Caldera Hemoglobin Ql (U) Negative Normal NEGATIVE [facility] Comment on above: Performed By: #### P REGU, ERUR ####[facility] [address] [place], [place] [address]Dr. Adrianna Cadlera Ketones Ql (U) Negative Normal NEGATIVE [facility] Comment on above: Performed By: #### P REGU, ERUR ####[facility] [address] [place], [place] [address]Dr. Adrianna Caldera LEUKOCYTES Negative Normal NEGATIVE [facility] Comment on above: Performed By: #### P REGU, ERUR ####[facility] [address] [address]Dr. Adrianna Caldera Nitrite Ql (U) Negative Normal NEGATIVE [facility] Comment on above: Performed By: #### P REGU, ERUR ####[facility] [address] [id number]. Adrianna Caldera pH (U) 6.0 [pH] Normal 5-9 [facility] Comment on above: Performed By: #### P REGU, ERUR ####[facility] [address] [address]Dr. Adrianna Caldera SPEC GRAVITY <=1.005 Abnormal 1.005-<=1.0 25 [facility] Comment on above: Performed By: #### P BASSEMU, ERUR ####[facility] [address] [address]Dr. Adrianna Caldera UA PROTEIN Negative Normal NEGATIVE/ TRACE [facility] Comment on above: Performed By: #### P BASSEMU, ERUR ####[facility] [address] [address]Dr. Adrianna Caldera UR MICRO IND NOT INDICATED Normal [facility] Comment on above: Performed By: #### P REGU, ERUR ####[facility] [address] [address]Dr. Adrianna Caldera Urobilinogen Qn (U) 0.2 {Micheal'U}/dL Normal 0.2 - 1. 0 [facility] Comment on above: Performed By: #### P REGU, ERUR ####[facility] [address] [address]DrAung Caldera PREG QUANT HCGon 03-22-2022 HCG QUANT 2 mIU/mL Normal [facility] Comment on above: Performed By: #### P REGQNT #### [facility] [address] [address] [address] Adrianna Caldera HCG RANGE SEE BELOW Normal [facility] Comment on above: Result Comment: 5-50 0.2-1 WEEK 50-500 1-2 WEEKS 100-5,000 2-3 WEEKS 500-10,000 3-4 WEEKS 1,000-50,000 4-5 WEEKS 10,000-100,000 5-6 WEEKS 15,000-200,000 6-8 WEEKS 10,000-100,000 2-3 MONTHS Performed By: #### P REGQNT #### [facility] [address] [address] [address] Adrianna Caldera URon 03-22-2022 , QUAL Negative Normal NEGATIVE [facility] Comment on above: Performed By: #### P REGU, ERUR ####[facility] [address] [address]Dr. Adrianna Caldera PROF CHEM 8 (BAS METB)on Anion gap [Moles/Vol] 10.9 mmol/L Normal [facility] Comment on above: Performed By: #### U ACSIND #### [facility] [address] [address] [address] Adrianna Caldera Calcium [Mass/Vol] 9.1 mg/dL Normal 8.5-10.1 [facility] Comment on above: Performed By: #### U ACSIND #### [facility] [address] [address] [address] Adrianna Caldera Chloride [Moles/Vol] 105 mmol/L Normal 98-107 [facility] Comment on above: Performed By: #### U ACSIND #### [facility] [address] [address] [address] Adrianna Caldera CO2 [Moles/Vol] 26.0 mmol/L Normal 21.0-32.0 [facility] Comment on above: Performed By: #### U ACSIND #### [facility] [address] [address] [address] Adrianna Caldera Creatinine [Mass/Vol] 0.98 mg/dL Normal 0.55-1.02 [facility] Comment on above: Performed By: #### U ACSIND #### [facility] [address] [address] [address] Adrianna Caldera EGFR-AF IVORIAN >60 Normal >=60 [facility] Comment on above: Performed By: #### U ACSIND #### [facility] [address] [address] [address] Adrianna Caldera EGFR-NON AF IVORIAN >60 Normal >=60 [facility] Comment on above: Performed By: #### U ACSIND #### [facility] [address] [address] [address] Adrianna Caldera Glucose [Mass/Vol] 87 mg/dL Normal 74-106 [facility] Comment on above: Performed By: #### U ACSIND #### [facility] [address] [address] [address] Adrianna Caldera Potassium [Moles/Vol] 3.9 mmol/L Normal 3.5-5.1 [facility] Comment on above: Performed By: #### U ACSIND #### [facility] [address] [address] [address] Adrianna Caldera Sodium [Moles/Vol] 138 mmol/L Normal 136-145 [facility] Comment on above: Performed By: #### U ACSIND #### [facility] [address] [address] [address] Adrianna Caldera Urea nitrogen [Mass/Vol] 11.0 mg/dL Normal 7.0-18.0 [facility] Comment on above: Performed By: #### U ACSIND #### [facility] [address] [address] [address] Adrianna Caldera Urea nitrogen/Creatinine [Mass ratio] 11.2 mg/mg Normal [facility] Comment on above: Performed By: #### U ACSIND #### [facility] [address] [address] [address] Adrianna Caldera PREG QUANT HCGon 03-03-2022 HCG QUANT 1 mIU/mL Normal [facility] Comment on above: Performed By: #### P REGQNT #### [facility] [address] [address] [address] Adrianna Caldera HCG RANGE SEE BELOW Normal [facility] Comment on above: Result Comment: 5-50 0.2-1 WEEK 50-500 1-2 WEEKS 100-5,000 2-3 WEEKS 500-10,000 3-4 WEEKS 1,000-50,000 4-5 WEEKS 10,000-100,000 5-6 WEEKS 15,000-200,000 6-8 WEEKS 10,000-100,000 2-3 MONTHS Performed By: #### P REGQNT #### [facility] [address] [address] [address] Adrianna Caldera Creatinine and Glomerular fi ltration rate.predicted panel (S/P/Bld)Ordered By: Tae Natarajan on 02-10-2022 Creatinine [Mass/Vol] 1.03 mg/dL 0.44-1.03 [facility] Estimated glomerular filtrat ion rate (GFR) non- AmericanOrdered By: Tae Natarajan on 02-10-2022 GFR/1.73 sq M.predicted among non-blacks MDRD (S/P/Bld) [Vol rate/Area] > 60 mL/Min [facility] HCG ( test) IA.rapi d Ql (U)Ordered By: Tae Natarajan on 02-10-2022 HCG ( test) Ql (U) Negative [facility] No Panel InformationOrdered By: Tae Natarajan on 02-10-2022 Estimated GFR () > 60 mL/Min [facility] Comment on above: GFR estimated refere nce range: According to KDOQI guidelines, <60 ml/min/1.73m2 is sufficient to diagnose a patient with chronic kidney disease. Pharmacy Creatinine Clearance (Chem 88.89 [facility] Serum or plasma urea nitroge n measurement (mass/volume)Ordered By: Tae Natarajan on 02-10-2022 Urea nitrogen [Mass/Vol] 9 mg/dL 02-19 [facility] PREG QUANT HCGon 12-04-2021 HCG QUANT <1 Normal [facility] Comment on above: Performed By: #### P REGQNT #### [facility] [address] [address] [address] Adrianna Caldera HCG RANGE SEE BELOW Normal [facility] Comment on above: Result Comment: 5-50 0-1 WEEK 40-300 1-2 WEEKS 100-1,000 2-3 WEEKS 500-6,000 3-4 WEEKS 5,000-200,000 1-2 MONTHS 10,000-100,000 2-3 MONTHS 3,000-50,000 2ND TRIMESTER 1,000-50,000 3RD TRIMESTER Performed By: #### P REGQNT #### [facility] [address] [place], [place] [address] Dr. Adrianna Caldera CBC AUTO DIFFon 11-14-2021 BASO # 0.1 103/ul Normal 0.0-0.1 [facility] Comment on above: Performed By: #### C BC ####[facility] [address] [address]Dr. Adrianna Caldera Basophils/100 WBC (Bld) 0.5 % Normal 0.2-2.0 [facility] Comment on above: Performed By: #### C BC ####[facility] [address] [address]Dr. Adrianna Caldera EO # 0.1 103/ul Normal 0.0-0.7 [facility] Comment on above: Performed By: #### C BC ####[facility] [address] [address]Dr. Adrianna Caldera Eosinophils/100 WBC (Bld) 0.8 % Critically low 0.9-7.0 [facility] Comment on above: Performed By: #### C BC ####[facility] [address] [address]Dr. Adrianna Caldera Erythrocyte distribution width (RBC) [Ratio] 13.0 % Normal 11.0-15.0 [facility] Comment on above: Performed By: #### C BC ####[facility] [address] [id number]. Adrianna Caldera Hematocrit (Bld) [Volume fraction] 38.5 % Normal 36.0-48.0 [facility] Comment on above: Performed By: #### C BC ####[facility] [address] [address]DrAung Caldera Hemoglobin (Bld) [Mass/Vol] 12.9 g/dL Normal 12.0-16.0 [facility] Comment on above: Performed By: #### C BC ####[facility] [address] [address]DrAung Caldera IG # 0.03 10e3/ul Normal 0.00-0.03 [facility] Comment on above: Performed By: #### C BC ####[facility] [address] [address]DrAung Caldera IG % 0.3 % Normal 0.0-0.5 [facility] Comment on above: Performed By: #### C BC ####[facility] [address] [place], [place] [address]DrAung Caldera LYMPH # 2.8 103/ul Normal 1.2-3.8 [facility] Comment on above: Performed By: #### C BC ####[facility] [address] [place], [place] [address]DrAung Caldera Lymphocytes/100 WBC (Bld) 27.4 % Normal 20.5-60.0 [facility] Comment on above: Performed By: #### C BC ####[facility] [address] [place], [place] [address]DrAung Caldera MANUAL DIFF REQ NO Normal [facility] Comment on above: Performed By: #### C BC ####[facility] [address] [address]DrAung Caldera MCH (RBC) [Entitic mass] 29.7 pg Normal 26.7-34.0 [facility] Comment on above: Performed By: #### C BC ####[facility] [address] [address]DrAung Caldera MCHC (RBC) [Mass/Vol] 33.5 g/dL Normal 29.9-35.2 [facility] Comment on above: Performed By: #### C BC ####[facility] [address] [address]DrAung Caldera MCV (RBC) [Entitic vol] 88.7 fL Normal 81.0-99.0 [facility] Comment on above: Performed By: #### C BC ####[facility] [address] [address]DrAung Adrianna Werner MONO # 0.7 103/ul Normal 0.3-0.8 [facility] Comment on above: Performed By: #### C BC ####[facility] [address] [address]DrAung Caldera Monocytes/100 WBC (Bld) 6.5 % Normal 1.7-12.0 [facility] Comment on above: Performed By: #### C BC ####[facility] [address] [place], [place] [address]DrAung Caldera NEUT # 6.5 103/ul Normal 1.4-6.5 [facility] Comment on above: Performed By: #### C BC ####[facility] [address] [address]Dr. Adrianna Caldera Neutrophils/100 WBC (Bld) 64.5 % Normal 43.0-75.0 [facility] Comment on above: Performed By: #### C BC ####[facility] [address] [place], [place] [address]DrAung Jemimabenito Caldera Platelet mean volume (Bld) [Entitic vol] 10.4 fL Normal 9.5-13.5 [facility] Comment on above: Performed By: #### C BC ####[facility] [address] [place] [address]Dr. Adrianna Caldera PLT 324 103/ul Normal 150-450 [facility] Comment on above: Performed By: #### C BC ####[facility] Addty[address] [place], [place] [address]DrAung Caldera RBC 4.34 106/ul Normal 4.20-5.40 [facility] Comment on above: Performed By: #### C BC ####[facility] [address] [place] [id number] Caldera WBC 10.1 103/ul Normal 4.0-11.0 [facility] Comment on above: Performed By: #### C BC ####[facility] [address] [place] [address]Dr. Adrianna Caldera ER URINE PROFILEon 2 Bilirubin Ql (U) Negative Normal NEGATIVE The [facility] Comment on above: Performed By: #### E RUR, PREGU, UMICRO ####[facility] [address] [place] [address]Dr. Adrianna Caldera Clarity (U) CLEAR Normal CLEAR [facility] Comment on above: Performed By: #### E RUR, PREGU, UMICRO ####[facility] Rehasqsfbp[address] [place], [place] [address]Dr. Adrianna Caldera Color (U) LT. YELLOW Normal YELLOW [facility] Comment on above: Performed By: #### E RUR, PREGU, UMICRO ####[facility] Kiydzf[address] [place], [place] [address]Dr. Jemimabenito Caldera ERUAHD A micrscopic examination will be performed if indicated. Normal [facility] Comment on above: Performed By: #### E RUR, PREGU, UMICRO ####[facility] [address] [place], [place] [address]Dr. Adrianna Werner Glucose Ql (U) Negative Normal NEGATIVE The [facility] Comment on above: Performed By: #### E RUR, PREGU, UMICRO ####[facility] Minjej[address] [place], [place] [address]Dr. Adrianna Werner Hemoglobin Ql (U) LARGE Abnormal NEGATIVE The [facility] Comment on above: Performed By: #### E RUR, PREGU, UMICRO ####[facility] N[address] [place], [place] [address]Dr. Adrianna Caldera Ketones Ql (U) Negative Normal NEGATIVE The [facility] Comment on above: Performed By: #### E RUR, PREGU, UMICRO ####[facility] [address] [place] [address]Dr. Adrianna Werner LEUKOCYTES Negative Normal NEGATIVE [facility] Comment on above: Performed By: #### E RUR, PREGU, UMICRO ####[facility] [address] [place] [address]Dr. Adrianna Caldera Nitrite Ql (U) Negative Normal NEGATIVE The [facility] Comment on above: Performed By: #### E RUR, PREGU, UMICRO ####[facility] [address] [place] [address]Dr. Adrianna Caldera pH (U) 6.5 [pH] Normal 5-9 [facility] Comment on above: Performed By: #### E RUR, PREGU, UMICRO ####[facility] Nzwdokeze[address] [place], [place] [address]Dr. Adrianna Caldera SPEC GRAVITY 1.015 Normal 1.005-<=1.0 25 [facility] Comment on above: Performed By: #### E RUR, PREGU, UMICRO ####[facility] H[address] [place], [place] [address]Dr. Adrianna Caldera UA PROTEIN Negative Normal NEGATIVE/ TRACE [facility] Comment on above: Performed By: #### Rojelio RUR, PREGU, UMICRO ####[facility] [address]yrpyjree[address] [place], [place] [address]Dr. Adrianna Caldera UR MICRO IND INDICATED Normal [facility] Comment on above: Performed By: #### E RUR, PREGU, UMICRO ####[facility] Atz[address] [place], [place] [address]Dr. Adrianna Caldera Urobilinogen Qn (U) 0.2 {Micheal'U}/dL Normal 0.2 - 1. 0 [facility] Comment on above: Performed By: #### E RUR, PREGU, UMICRO ####[facility] Ppq[address] [place], [place] [address]Dr. Adrianna Caldera URon 11-14-2021 , QUAL Negative Normal NEGATIVE The [facility] Comment on above: Performed By: #### E RUR, PREGU, UMICRO ####[facility] M[address] [place], [place] [address]DrAung Caldera PROF CHEM 8 (BAS METB)on Anion gap [Moles/Vol] 13.5 mmol/L Normal Th [facility] Comment on above: Performed By: #### U ACSIND #### [facility] [address] [address] [address] Adrianna Caldera Calcium [Mass/Vol] 8.7 mg/dL Normal 8.5-10.1 [facility] Comment on above: Performed By: #### U ACSIND #### [facility] [address] [address] [address] Adrianna Caldera Chloride [Moles/Vol] 102 mmol/L Normal 98-107 [facility] Comment on above: Performed By: #### U ACSIND #### [facility] [address] [place] [address] Dr. Adrianna Caldera CO2 [Moles/Vol] 27.3 mmol/L Normal 21.0-32.0 [facility] Comment on above: Performed By: #### U ACSIND #### [facility] [address] [address] [address] Adrianna Caldera Creatinine [Mass/Vol] 0.85 mg/dL Normal 0.55-1.02 [facility] Comment on above: Performed By: #### U ACSIND #### [facility] [address] [place] [address] Dr. Adrianna Caldera EGFR-AF IVORIAN >60 Normal >=60 [facility] Comment on above: Performed By: #### U ACSIND #### [facility] [address] [address] [address] Adrianna Caldera EGFR-NON AF IVORIAN >60 Normal >=60 [facility] Comment on above: Performed By: #### U ACSIND #### [facility] [address] [address] [address] Adrianna Caldera Glucose [Mass/Vol] 104 mg/dL Normal 74-106 The [facility] Comment on above: Performed By: #### U ACSIND #### [facility] [address] [address] [address] Adrianna Caldera Potassium [Moles/Vol] 3.8 mmol/L Normal 3.5-5.1 [facility] Comment on above: Performed By: #### U ACSIND #### [facility] [address] [address] [address] Adrianna Caldera Sodium [Moles/Vol] 139 mmol/L Normal 136-145 [facility] Comment on above: Performed By: #### U ACSIND #### [facility] [address] [address] [address] Adrianna Caldera Urea nitrogen [Mass/Vol] 8.0 mg/dL Normal 7.0-18.0 [facility] Comment on above: Performed By: #### U ACSIND #### [facility] [address] [address] [address] Adrianna Caldera Urea nitrogen/Creatinine [Mass ratio] 9.4 mg/mg Normal [facility] Comment on above: Performed By: #### U ACSIND #### [facility] [address] [address] [address] Adrianna Caldera URINE MICROSCOPIC ONLYon BACTERIA NONE SEEN Normal NONE SEEN [facility] Comment on above: Performed By: #### HECTOR HAYNESU UMICRO ####[facility] [address] [place] [address]DrAung Caldera Bacteria identified Cx Nom (U) NOT INDICATED Normal [facility] Comment on above: Performed By: #### E RUAugie PREGU, UMICRO ####[facility] [address] [place] [address]DrAung Caldera CAST NONE SEEN Normal NONE SEEN [facility] Comment on above: Performed By: #### E RUR PREGU, UMICRO ####[facility] [address] [place] [address]DrAung Caldera Crystals LM Nom (Urine sed) NONE SEEN Normal NONE SEEN [facility] Comment on above: Performed By: #### E RUR, PREGU, UMICRO ####[facility] [address] [place] [address]DrAung Caldera Epithelial cells LM Ql (Urine sed) RARE Normal NONE SEEN /RARE [facility] Comment on above: Performed By: #### E RUR, PREGU, UMICRO ####[facility] [address] [place] [id number]. Adrianna Caldera MUCOUS NONE SEEN Normal NONE SEEN [facility] Comment on above: Performed By: #### E RUR, PREGU, UMICRO ####[facility] [address] [place] [id number]. Adrianna Caldera RBC 10-20 Abnormal 0-2 [facility] Comment on above: Performed By: #### E RUR, PREGU, UMICRO ####[facility] [address] [place] [id number]. Adrianna Caldera WBC 0-2 Abnormal NONE SEEN [facility] Comment on above: Performed By: #### E RUR, PREGU, UMICRO ####[facility] [address] [place] [address]Dr. Adrianna Caldera HCG, Quantitative, on 10-12-2021 hCG Quant <1 <5 mIU/mL [facility] Comment on above: Non-preg premeno <=5 Postmeno <=8 Male <=3 If HCG results do not concur with clinical observations, additional testing to confirm results is recommended. Elevated results not associated with may be found in patients with other diseases such as tumors of the germ cells (testis, ovaries, etc.), bladder, pancreas, stomach, lungs, and liver. [facility] CBC with Auto Differentialon 10-11-2021 Absolute Eos # 0.08 [facility] th Absolute Immature Granulocyte <0.03 [facility] Absolute Lymph # 1.85 [facility] alth Absolute Real # 0.56 [facility] lth Basophils (Bld) [#/Vol] 0.04 10*3/uL [facility] Basophils/100 WBC (Bld) 1 % 0 - 2 % [facility] Eosinophils/100 WBC (Bld) 1 % 1 - 4 % [facility] Hematocrit (Bld) [Volume fraction] 38.9 % 36.3 - 47.1 % [facility] Hemoglobin.gastrointest inal spec 1 Ql (Stl) 12.7 g/dL 11.9 - 15.1 g/dL [facility] Immature granulocytes/100 WBC (Bld) 0 % 0 [facility] Lymphocytes/100 WBC (Bld) 29 % 24 - 43 % [facility] MCH (RBC) [Entitic mass] 29.7 pg 25.2 - 33.5 pg [facility] MCHC (RBC) [Mass/Vol] 32.6 g/dL 28.4 - 34.8 g/dL [facility] MCV (RBC) [Entitic vol] 90.9 fL 82.6 - 102.9 fL [facility] Monocytes/100 WBC (Bld) 9 % 3 - 12 % M [facility] NRBC Automated 0.0 0.0 per 100 WBC [facility] Platelet distribution width (Bld) [Ratio] 12.9 % 11.8 - 14.4 % [facility] Platelet mean volume (Bld) [Entitic vol] 10.3 fL 8.1 - 13.5 fL [facility] Platelets (Bld) [#/Vol] 351 10*3/uL [facility] RBC (Bld) [#/Vol] 4.28 10*6/uL 3.95 - 5.1 1 m/uL [facility] Segmented neutrophils/100 WBC (Bld) 60 % 36 - 65 % [facility] Segs Absolute [facility] WBC (Bld) [#/Vol] 6.5 10*3/uL [facility] CT ABDOMEN PELVIS W IV CONTR AST [...] No hydronephrosis. Gallbladder is not remarkable. GI/Bowel: Arev-mf-xkenmlxj retained stool without bowel obstruction. No pericecal inflammatory changes. Appendix unremarkable. Pelvis: There is mild prominence endometrial canal 7 mm. This may related to phase of menstrual cycle. Please correlate exam findings and history. No suspicious adnexal mass. Bladder remarkable. Peritoneum/Retroperi toneum: Trace free fluid dependent pelvis. No free air. No suspicious adenopathy. Bones/Soft Tissues: No suspicious osseous lesion [facility] Ashutosh Omalley MD - 10/11/2021 EXAMINATION: CT [...] No hydronephrosis. Gallbladder is not remarkable. GI/Bowel: Jszg-ec-iyggxfnk retained stool without bowel obstruction. No pericecal [...] Negative acute inflammatory process or bowel obstruction. [employer] Phone: Radiology Study observation (narrative) [employer] Phone: CT ABDOMEN PELVIS W IV CONTR AST Additional Contrast? NoneOrdered By: Ashutosh Omalley on 10-11-2021 [employer] Phone: Comprehensive Metabolic Pane l w/ Reflex to MGon 10-11-2021 Albumin [Mass/Vol] 4.3 g/dL 3.5 - 5.2 g/dL [facility] Albumin/Globulin [Mass ratio] 1.7 {ratio} [facility] ALP (Bld) [Catalytic activity/Vol] 73 U/L 35 - 104 U/L [facility] ALT [Catalytic activity/Vol] 21 U/L 5 - 33 U/L [facility] Anion gap [Moles/Vol] 7 mmol/L Low 9 - 17 mmol/L [facility] AST [Catalytic activity/Vol] 15 U/L <32 [facility] Bilirubin [Mass/Vol] 0.25 mg/dL Low 0.3 - 1 .2 mg/dL [facility] Calcium [Mass/Vol] 9.1 mg/dL 8.6 - 10. 4 mg/dL [facility] Chloride [Moles/Vol] 105 mmol/L 98 - 10 7 mmol/L [facility] CO2 [Moles/Vol] 26 mmol/L 20 - 31 mmol/L [facility] Creatinine [Mass/Vol] 0.75 mg/dL 0.50 - 0.90 mg/dL [facility] Free PSA/Total PSA [Mass fraction] 6.8 g/dL 6.4 - 8.3 g/dL [facility] GFR >60 >60 mL/min [facility] GFR Non- >60 >60 mL/min [facility] Glucose [Mass/Vol] 116 mg/dL High 70 - 99 mg/dL [facility] Interpretation and review of laboratory results Abnormal [facility] Potassium [Moles/Vol] 3.9 mmol/L 3.7 - 5.3 mmol/L [facility] Sodium [Moles/Vol] 138 mmol/L 135 - 144 mmol/L [facility] Urea nitrogen (BldV) [Mass/Vol] 9 mg/dL 6 - 20 mg/dL [facility] Urea nitrogen/Creatinine (Bld) [Mass ratio] 12 [facility] Laboratory - Chemistry and C hemistry - challengeon 10-11-2021 GFR/1.73 sq M.predicted MDRD (S/P/Bld) [Vol rate/Area] [facility] Comment on above: Average GFR for 20-2 9 years old: 116 mL/min/1.73sq m Chronic Kidney Disease: <60 mL/min/1.73sq m Kidney failure: <15 mL/min/1.73sq m eGFR calculated using average adult body mass. Additional eGFR calculator available at: http://www.SigFig/multiple_crcl_2012.htm Stage 1: Some kidney damage normal GFR Stage 2: Mild kidney damage GFR 60-89 Stage 3: Moderate kidney damage GFR 30-59 Stage 4: Severe kidney damage GFR 15-29 Stage 5: Severe kidney damage GFR <15 ESRD - chronic treatment by dialysis or transplant Lipaseon 10-11-2021 Lipase [Catalytic activity/Vol] 39 U/L 13 - 60 U/L [employer] [facility] Microscopic Urinalysison - [facility] Bacteria, UA TRACE Abnormal None [employer] Crystals, UA 2 TO 5 CALCIUM OXALATE Abnormal None /HPF [facility] Epithelial Cells UA 2 TO 5 [facility] Interpretation and review of laboratory results Abnormal [employer] [facility] RBC, UA 2 TO 5 [employer] WBC, UA 0 TO 2 [facility] [employer] No Panel Informationon 10-11 [facility] , Urineon Beta HCG ( test) Ql (U) Negative NEGATIVE [facility] Comment on above: Specimens with hCG l evels near the threshold of the test (25 mIU/mL) may give a negative or indeterminate result. In such cases, another test should be performed with a new specimen in 48-72 hours. If early is suspected clinically in this setting, correlation with quantitative serum b-hCG level is suggested. [employer] has confirmed the use of plasma for this test. This has not been cleared or approved by the U.S. Food and Drug Administration. The FDA has determined that such clearance is not necessary. [facility] Urinalysis with Reflex to Cu ltureon 10-11-2021 Bilirubin Urine Negative NEGATIVE [employer] Color, UA Yellow Yellow [facility] Glucose, Ur Negative NEGATIVE [facility] Interpretation and review of laboratory results Abnormal [employer] [facility] Ketones Ql (U) Negative NEGATIVE [facility] Leukocyte esterase Test strip Ql (U) Negative NEGATIVE [employer] Nitrite, Urine Negative NEGATIVE [facility] pH, UA 6.0 [facility] Protein, UA Negative NEGATIVE [facility] Specific Carver, UA >1.030 [place] Turbidity UA Clear Clear [facility] Urine Hgb TRACE Abnormal NEGATIVE [employer] [facility] Urobilinogen, Urine Normal Normal [facility] PREG QUANT HCGon 10-09-2021 HCG QUANT <1 Normal [facility] Comment on above: Performed By: #### P REGQNT ####[facility] [address] [place], [place] [address]Ck. Adrianna Caldera HCG RANGE SEE BELOW Normal [facility] Comment on above: Result Comment: 5-50 0-1 WEEK 40-300 1-2 WEEKS 100-1,000 2-3 WEEKS 500-6,000 3-4 WEEKS 5,000-200,000 1-2 MONTHS 10,000-100,000 2-3 MONTHS 3,000-50,000 2ND TRIMESTER 1,000-50,000 3RD TRIMESTER Performed By: #### P REGQNT ####[facility] [address] [place], [place] [address]Wg. Adrianna Caldera CULTURE, URINE, ROUTINEon CULTURE, URINE, ROUTINE SEE NOTE Abnormal [facility] Comment on above: Result Comment: CULTURE, URINE, ROUTINE Micro Number: [id number] Test Status: Final Specimen Source: Urine Specimen [...] By: #### 3 95 #### [facility] [address], [address] [place] [address] Hospitalist Nocturnist Physician: Javid Broussard MD XR CHEST PORTABLEon 03-16-20 20 No acute process. [facility] [place] EXAMINATION: ONE XRAY VIEW OF THE CHEST 03/16/2020 3:33 pm COMPARISON: 07/13/2014 HISTORY: ORDERING SYSTEM PROVIDED HISTORY: cough, dyspnea TECHNOLOGIST PROVIDED HISTORY: cough, dyspnea FINDINGS: The lungs are without acute focal process. There is no effusion or pneumothorax. The cardiomediastinal silhouette is without acute process. The osseous structures are without acute process. [place], [place] James, Mhpn Incoming Radiant Results From [employer] - 03/16/2020 3:43 PM EDT EXAMINATION: ONE XRAY VIEW OF THE CHEST 03/16/2020 3:33 pm COMPARISON: 07/13/2014 HISTORY: ORDERING SYSTEM PROVIDED HISTORY: cough, dyspnea TECHNOLOGIST PROVIDED HISTORY: cough, dyspnea FINDINGS: The lungs are without acute focal process. There is no effusion or pneumothorax. The cardiomediastinal silhouette is without acute process. The osseous structures are without acute process. IMPRESSION: No acute process. [facility] with Microscopico n 03-03-2020 Amorphous, UA 1+ Abnormal None [place], [place] Bacteria, UA NOT REPORTED None [place], [place] Bilirubin Urine Negative NEGATIVE [place], [place] Casts UA NOT REPORTED /LPF [place] Color, UA YELLO YELLOW [place] Crystals, UA NOT REPORTED None /HPF [place] Epithelial Cells UA None [place] Glucose, Ur Negative NEGATIVE [place] Interpretation and review of laboratory results Abnormal [place] Ketones Ql (U) Negative NEGATIVE [place] Leukocyte esterase Test strip Ql (U) Negative NEGATIVE [place] Mucus, UA NOT REPORTED None [place] Nitrite, Urine Negative NEGATIVE [place] Other Observations UA NOT REPORTED NOT REQ. M [place], [place] pH, UA 6.0 [place] Protein (U) [Mass/Vol] Negative NEGATIVE [place], [place] RBC (U) [#/Vol] None [place], [place] Renal Epithelial, UA NOT REPORTED 0 /HPF Me [place], [place] Specific Carver, UA >1.030 [place], [place] Trichomonas, UA NOT REPORTED None [facility] e[place], [place] Turbidity UA CLOUDY Abnormal CLEAR [place] Urinalysis Comments NOT REPORTED [place] Urine Hgb TRACE Abnormal NEGATIVE [place] Urobilinogen, Urine Normal Normal [place] WBC, UA 0 TO 2 [place] Yeast, UA NOT REPORTED None [place], [place] - [place] HEPATOBILIARY SCAN W EJEC TION FRACTIONon 10-12-2019 Cholesterol [Mass/Vol] No convincing scintigraphic evidence of acute or chronic cholecystitis. [place] EXAMINATION: NUCLEAR MEDICINE HEPATOBILIARY SCINTIGRAPHY (HIDA [...] range is based on a limited study. [facility] [place] James, pn Incoming Radiant Results From [email or web address] - 10/12/2019 2:56 PM EDT EXAMINATION: NUCLEAR [...] scintigraphic evidence of acute or chronic cholecystitis. [facility] [place] HEPATOBILIARY SCAN W PHAR MACOLOGICAL INTERVENTIONon [...] Niraj Covarrubias MD 10/12/19 Final result [facility] H. pylori urease IDon 2019 H. pylori urease ID Specimen Description .TISSUE, ST[place]ACH [place] [id number] EXP 04/05/20 Direct Exam NEGATIVE Report Status FINAL 10/06/2019 [facility] Comment on above: Performed By: #### H JOELLE #### [facility] [address] [place] [address] Professional Services Specialist: Varun Vicente MD [facility] [employer] [address] [place] [address] Professional Services Specialist: Omar Segundo MD OPERATIVE REPORTon 0 OPERATIVE REPORT [address] [id number] OPERATIVE REPORT PATIENT NAME: LULÚ GAITAN : 1995 MED REC NO: [id number] ROOM: ACCOUNT NO: [id number] ADMIT DATE: 10/05/2019 PROVIDER: Toño Blanc Jr [...] satisfactory condition. TOÑO BLANC JR [id number] Doc#: [id number] CC: Lisseth Blanc Jr [facility] POCT urine pregnancyon 10-04 Beta HCG ( test) Ql (U) Negative NEGATIVE [facility], [place] Comment on above: Specimens with hCG l evels near the threshold of the test (25 mIU/mL) may give a negative or indeterminate result. In such cases, another test should be performed with a new specimen in 48-72 hours. If early is suspected clinically in this setting, correlation with quantitative serum b-hCG level is suggested. [id number] 10-05-2019 SARS-CoV-2 Not Detected Normal Not Detected [facility] Comment on above: Result Comment: (NOT E) The [employer] RealTime SARS-CoV-2 assay is a real-time (rt) reverse transcriptase (RT) polymerase chain reaction (PCR) test intended for the Posmetrics system. The SARS-CoV-2 primer and probe sets are designed to detect RNA from SARS-CoV-2 in nasopharyngeal (EMPLOYMENT PROGRAMS ANALYST) and oropharyngeal (OP) swabs from patients with [...] The above 1 analytes were performed by [address] [address] Performed By: #### C OVID #### [facility] [address] [place] [address] Professional Services Specialist: Samson Martinez DO [facility] [address] [place] [address] Professional Services Specialist: Omar Segundo MD [facility] [address] [place] [address] Professional Services Specialist: Bill Jolly MD Surgical Pathologyon 020 Surgical [...] SURGICAL PATHOLOGY CONSULTATION Patient Name: LULÚ GAITAN [facility] Rec: [id number] Path Number: [id number] [facility] ANATOMIC PATHOLOGY [address] [place] [phone] [facility] Comment on above: Performed By: #### P PPVS #### [address] [id number] Professional Services Specialist: Omar Segundo MD [id number] 10-03-2019 SARS-CoV-2,Rapid [facility] Comment on above: Performed By: #### C OVID #### [facility] [address] [place], [place] [id number] Professional Services Specialist: Samson Martinez DO [address] [phone] Professional Services Specialist: Omar Segundo MD [facility] [address] [place], [place] [phone] Professional Services Specialist: Bill Jolly MD SARS-CoV-2 [facility] Comment on above: Performed By: #### C OVID #### [facility] [address] [facility] [place] [address] Professional Services Specialist: Samson Martinez DO [facility] [address] [place] [address] Professional Services Specialist: Omar Segundo MD [facility] [address] [place] [address] Professional Services Specialist: Bill Jolly MD SARS-CoV-2 Source .NASOPHARYNGEAL SWAB Normal [facility] Comment on above: Performed By: #### C OVID #### [facility] [address] [facility] [place] [address] Professional Services Specialist: Samson Martinez DO [facility] [address] [place] [address] Professional Services Specialist: Omar Segundo MD [facility] [address] [place] [address] Professional Services Specialist: Bill Jolly MD XR ABDOMEN (KUB) (SINGLE AP VIEW)on 02-08-2019 Nonspecific nonobstructive bowel gas pattern. No definite calcified urinary tract stones are seen. [facility]: ONE SUPINE XRAY VIEW(S) OF THE [...] nonobstructive bowel gas pattern. No unusual calcifications. [facility] [place] James, Mhpn Incoming Radiant Results From [email or web address] - 02/08/2019 4:29 PM EDT EXAMINATION: ONE [...] definite calcified urinary tract stones are seen. [place] Urinalysis with Microscopico n 02-06-2019 Amorphous, UA NOT REPORTED None [place], [place] Bacteria, UA TRACE Abnormal None [place] Bilirubin Urine Negative NEGATIVE [place] Casts UA NOT REPORTED /LPF [place] Color, UA YELLOW YELLOW [place] Crystals UA NOT REPORTED None /HPF [place] Epithelial Cells UA 2 TO 5 [place], [place] Glucose, Ur Negative NEGATIVE [place] Interpretation and review of laboratory results Abnormal [place] Ketones Ql (U) Negative NEGATIVE [place], [place] Leukocyte esterase Test strip Ql (U) Negative NEGATIVE [place] Mucus, UA 1+ Abnormal None [place] Nitrite, Urine Negative NEGATIVE [place] Other Observations UA NOT REPORTED NOT REQ. M [place] pH, UA 7.0 [place], [place] Protein (U) [Mass/Vol] Negative NEGATIVE [place], [place] RBC (U) [#/Vol] 0 TO 2 [place], [place] Renal Epithelial, Urine NOT REPORTED 0 /HPF [place] Specific [place], UA 1.020 [place], [place] Trichomonas, UA NOT REPORTED None [place] Turbidity UA CLEAR CLEAR [place] Urinalysis Comments NOT REPORTED [place] Urine Hgb TRACE Abnormal NEGATIVE [place] Urobilinogen, Urine Normal Normal [place] WBC, UA 0 TO 2 [place] Yeast, UA NOT REPORTED None [place] - [place] Wet prep, genitalon 02-07-20 19 Direct Exam NO TRICHOMONAS SEEN [place] Direct Exam YEAST [place] Direct Exam CLUE CELLS SEEN Abnormal [place] Interpretation and review of laboratory results Abnormal [place] Special Requests NOT REPORTED [place] Specimen Description .VAGINA [place] Vital Signs Date Time Vital Sign Value Performing Clinician Facility 05-19-2023 15:36-0500 Diastolic blood pressure 59 mm[Hg] DO Matthew Lemus Work Phone: [facility] 05-19-2023 15:36-0500 Heart rate 95 /min DO Matthew Miltons Work Phone: [facility] 05-19-2023 15:36-0500 Respiratory rate 16 /min DO Matthew Lemus Work Phone: [facility] 05-19-2023 15:36-0500 SaO2% (BldA) [Mass fraction] 99 % DO Matthew Lemus Work Phone: [facility] 05-19-2023 15:36-0500 Systolic blood pressure 109 mm[Hg] DO Matthew Lemus Work Phone: [facility] 05-19-2023 12:39-0500 Body height 165.1 cm DO Matthew Lemus Work Phone: [facility] 05-19-2023 12:39-0500 Body weight 70.76 kg DO Matthew Lemus Work Phone: [facility] 05-10-2023 11:11-0500 Diastolic blood pressure 78 mm[Hg] Rishi MARSHALL [facility] 05-10-2023 11:11-0500 Heart rate 72 /min Rishi MARSHALL [facility] 05-10-2023 11:11-0500 Systolic blood pressure 117 mm[Hg] Rishi MARSHALL [facility] Will 04-27-2023 13:30-0500 Body height 166.37 cm Imad Asaad Other [employer] Other 04-27-2023 13:30-0500 Body mass index (BMI) [Ratio] 25.71 kg/m2 Imad Asaad Other [employer] Other 04-27-2023 13:30-0500 Body weight 71.17 kg Imad Asaad Other [employer] Other 02-11-2023 18:20-0400 Body height 166.37 cm Sarah Anderson Other [employer] Other 02-11-2023 18:20-0400 Body mass index (BMI) [Ratio] 27.69 kg/m2 Sarah Anderson Other [employer] Other 02-11-2023 18:20-0400 Body temperature 98.1 [degF] Sarah Monica Other [employer] Other 02-11-2023 18:20-0400 Body weight 76.66 kg Sarah Anderson Other [employer] Other 02-11-2023 18:20-0400 Diastolic blood pressure 78 mm[Hg] Sarah Monica Other [employer] Other 02-11-2023 18:20-0400 Respiratory rate 18 /min Sarah Anderson Other [employer] Other 02-11-2023 18:20-0400 SaO2% (BldA) [Mass fraction] 99 % Sarah Anderson Other [facility] [employer] Other 02-11-2023 18:20-0400 Systolic blood pressure 116 mm[Hg] Sarah Anderson Other [facility] [employer] Other 02-06-2023 07:30-0400 Body temperature 98.1 [degF] DO Matthew Miltons Work Phone: [facility] 02-06-2023 07:30-0400 Diastolic blood pressure 60 mm[Hg] DO Matthew Farmerhas Work Phone: [facility] 02-06-2023 07:30-0400 Heart rate 83 /min DO Matthew Miltons Work Phone: [facility] 02-06-2023 07:30-0400 Respiratory rate 18 /min DO Matthew Miltons Work Phone: [facility] 02-06-2023 07:30-0400 SaO2% (BldA) [Mass fraction] 97 % DO Matthew Farmerhas Work Phone: [facility] 02-06-2023 07:30-0400 Systolic blood pressure 102 mm[Hg] DO Mathtew Miltons Work Phone: [facility] 02-03-2023 14:17-0400 Body height 165.1 cm DO Matthew Miltons Work Phone: [facility] 02-02-2023 23:53-0400 Body weight 74.15 kg DO Matthew Farmerhas Work Phone: [facility] 06-30-2022 23:12-0500 Diastolic blood pressure 56 mm[Hg] Courtney Hernandez MD [facility]: [facility] 06-30-2022 23:12-0500 Heart rate 88 /min Courtney Hernandez MD Work Phone: [facility] [employer] 06-30-2022 23:12-0500 Respiratory rate 16 /min Courtney Hernandez MD Work Phone: [employer] 06-30-2022 23:12-0500 Systolic blood pressure 100 mm[Hg] Courtney Hernandez MD Work Phone: [facility] [employer] 06-30-2022 22:21-0500 Body height 165.1 cm Courtney Hernandez MD Work Phone: [employer] 06-30-2022 21:13-0500 SaO2% (BldA) [Mass fraction] 98 % Courtney Hernandez MD Work Phone: [employer] 06-30-2022 18:31-0500 Body mass index (BMI) [Ratio] 28.96 kg/m2 Courtney Hernandez MD Work Phone: [employer] 06-30-2022 18:31-0500 Body weight 78.93 kg Courtney Hernandez MD Work Phone: [employer] 06-30-2022 18:27-0500 Body temperature 98.4 [degF] Courtney Hernandez MD Work Phone: [employer] 06-17-2022 17:10-0500 Diastolic blood pressure 65 mm[Hg] [facility] 06-17-2022 17:10-0500 Systolic blood pressure 114 mm[Hg] [facility] 06-17-2022 17:10-0500 Systolic blood pressure 110 mm[Hg] Bridgette Ortega [place] [facility] 06-17-2022 17:00-0500 Body height 166.37 cm Bridgette Ortega [facility] 06-17-2022 17:00-0500 Body mass index (BMI) [Ratio] 28.43 kg/m2 [facility] 06-17-2022 17:00-0500 Body surface area Derived from formula 1.91 m2 Bridgette [employer] 06-17-2022 17:00-0500 Body weight 78.7 kg Bridgette Ortega [employer] 06-17-2022 17:00-0500 Body weight 0.1 {percentile} [facility]idgette [employer] 06-17-2022 17:00-0500 Diastolic blood pressure 70 mm[Hg] Bridgette [employer] 06-17-2022 17:00-0500 Heart rate 72 /min Bridgette Ortega [employer] 06-17-2022 17:00-0500 Systolic blood pressure 118 mm[Hg] Bridgette [employer] 06-15-2022 17:35-0500 Body temperature 98.1 [degF] Maricel Stafford [employer] 06-15-2022 17:35-0500 Body weight 77.57 kg Maricel tSafford [employer] 06-15-2022 17:35-0500 Diastolic blood pressure 62 mm[Hg] Maricel [employer] 06-15-2022 17:35-0500 Heart rate 80 /min Maricel [employer] 06-15-2022 17:35-0500 Respiratory rate 16 /min Maricel [facility] 06-15-2022 17:35-0500 Systolic blood pressure 110 mm[Hg] Maricel [employer] 05-17-2022 11:45-0500 SaO2% (BldA) [Mass fraction] 98 % Maricel [employer] 05-17-2022 10:59-0500 Body height 166.37 cm Maricel [employer] 05-17-2022 10:59-0500 Body mass index (BMI) [Ratio] 28.19 kg/m2 Maricel [employer] 05-17-2022 10:59-0500 Body surface area Derived from formula 1.9 m2 Maricel [employer] 05-17-2022 10:59-0500 Body temperature 98.5 [degF] Maricel [facility] 05-17-2022 10:59-0500 Body weight 78.02 kg [employer] 05-17-2022 10:59-0500 Body weight 0.1 {percentile} Maricel [employer] 05-17-2022 10:59-0500 Diastolic blood pressure 60 mm[Hg] Maricel [employer] 05-17-2022 10:59-0500 Heart rate 90 /min [employer] 05-17-2022 10:59-0500 Respiratory rate 18 /min Maricel [facility] 05-17-2022 10:59-0500 Systolic blood pressure 112 mm[Hg] Maricel [employer] 02-10-2022 20:45-0400 Diastolic blood pressure 64 mm[Hg] DO Matthew Marlenyjulien Work Phone: [facility] 02-10-2022 20:45-0400 Heart rate 81 /min DO Matthew Marlenyhas Work Phone: [facility] 02-10-2022 20:45-0400 Respiratory rate 16 /min DO Matthew Marlenyhas Work Phone: [facility] 02-10-2022 20:45-0400 SaO2% (BldA) [Mass fraction] 99 % DO Matthew Lemus Work Phone: [facility] 02-10-2022 20:45-0400 Systolic blood pressure 100 mm[Hg] DO Matthew Lemus Work Phone: [facility] 02-10-2022 14:17-0400 Body height 165.1 cm DO Matthew Lemus Work Phone: [facility] 02-10-2022 14:17-0400 Body weight 81.64 kg DO Matthew Lemus Work Phone: [facility] 02-09-2022 10:01-0400 Body height 166.37 cm Kaleigh Pockit 02-09-2022 10:01-0400 Diastolic blood pressure 64 mm[Hg] Kaleigh Pockit 02-09-2022 10:01-0400 Heart rate 120 /min Kaleigh Guevara [employer] 02-09-2022 10:01-0400 Systolic blood pressure 118 mm[Hg] Kaleigh Pockit 01-29-2022 11:30-0400 Body height 166.37 cm Bridgette Ortega [employer] 01-29-2022 11:30-0400 Diastolic blood pressure 62 mm[Hg] Bridgette Lewis [employer] 01-29-2022 11:30-0400 Heart rate 100 /min Bridgette [employer]jesus[employer] 01-29-2022 11:30-0400 Systolic blood pressure 114 mm[Hg] Bridgette Lewis [employer] 01-25-2022 10:30-0400 Body height 166.37 cm Tae Stanleyrer Other [employer] Other 01-25-2022 10:30-0400 Body mass index (BMI) [Ratio] 29.49 kg/m2 Tae Stanleyrer Other [employer] Other 01-25-2022 10:30-0400 Body temperature 97.8 [degF] Tae Natarajan Other [employer] Other 01-25-2022 10:30-0400 Body weight 81.65 kg Tae Stanleyrer Other [employer] Other 01-25-2022 10:30-0400 Diastolic blood pressure 64 mm[Hg] Tae Stanleyrer Other [employer] Other 01-25-2022 10:30-0400 SaO2% (BldA) [Mass fraction] 99 % Tae Stanleyrer Other [employer] Other 01-25-2022 10:30-0400 Systolic blood pressure 110 mm[Hg] Tae Stanleyrer Other [employer] Other 01-19-2022 10:59-0400 Body height 166.37 cm Bridgette Ortega [facility] [employer] 01-19-2022 10:59-0400 Body mass index (BMI) [Ratio] 29.5 kg/m2 Bridgette [employer] 01-19-2022 10:59-0400 Body surface area Derived from formula 1.94 m2 Bridgette Lewis [facility] 01-19-2022 10:59-0400 Body weight 81.65 kg Bridgette Dejesus[employer] 01-19-2022 10:59-0400 Diastolic blood pressure 72 mm[Hg] Bridgette [employer] 01-19-2022 10:59-0400 Heart rate 112 /min Bridgette [facility] 01-19-2022 10:59-0400 Systolic blood pressure 114 mm[Hg] Bridgette Lewis [employer] 10-11-2021 18:26-0400 Diastolic blood pressure 77 mm[Hg] Matthew Lemus Work Phone: [employer] 10-11-2021 18:26-0400 Systolic blood pressure 130 mm[Hg] Matthew Lemus Work Phone: [employer] 10-11-2021 14:00-0400 Body mass index (BMI) [Ratio] 28.46 kg/m2 Matthew Lemus Work Phone: [employer] 10-11-2021 14:00-0400 Body temperature 97.81 [degF] Matthew Lemus Work Phone: [employer] 10-11-2021 14:00-0400 Body weight 77.56 kg Matthew Lemus Work Phone: [employer] 10-11-2021 14:00-0400 Heart rate 95 /min Matthew Lemus Work Phone: [employer] 10-11-2021 14:00-0400 Respiratory rate 16 /min Matthew Lemus Work Phone: [employer] 10-11-2021 14:00-0400 SaO2% (BldA) [Mass fraction] 98 % Matthew Lemus Work Phone: [employer] 09-29-2021 13:04-0400 Blood Pressure Location Rishi MARSHALL [facility] Nancy 09-29-2021 13:04-0400 Diastolic blood pressure 83 mm[Hg] Rishi MARSHALL [facility] [place] 09-29-2021 13:04-0400 Heart rate 100 /min Rishi MARSHALL [facility] [place] 09-29-2021 13:04-0400 Systolic blood pressure 124 mm[Hg] Rishi MARSHALL [facility] Will 09-04-2021 09:22-0400 Blood Pressure [facility] 09-04-[facility] 09:22-0400 Diastolic blood pressure 67 mm[Hg] [facility] 09-04-2021 09:22-0400 Heart rate 78 /min [facility] 09-04-2021 09:22-0400 Respiratory rate 16 /min [facility] 09-04-2021 09:22-0400 Systolic blood pressure 97 mm[Hg] Rishi MARSHALL [facility] 03-16-2020 15:12-0400 BMI (Body Mass Index) 25.96 kg/m2 [place] 03-16-2020 15:12-0400 Body Temperature 99 [degF] Catracho Parisi [facility] 03-16-2020 15:12-0400 Body weight 70.76 kg Catracho Parisi [place], [place] 03-16-2020 15:12-0400 BP Diastolic 69 mm[Hg] [place] 03-16-2020 15:12-0400 BP Systolic 125 mm[Hg] [place] 03-16-2020 15:12-0400 Pulse (Heart Rate) 77 /min [place] 03-16-2020 15:12-0400 Pulse Oximetry 99 % [place] 03-16-2020 15:12-0400 Respiratory Rate 18 /min [place] 10-05-2019 13:30-0400 Body Temperature 98.1 [degF] [place] 10-05-2019 13:30-0400 BP Diastolic 72 mm[Hg] [place] 10-05-2019 13:30-0400 BP Systolic 110 mm[Hg] [place] 10-05-2019 13:30-0400 Pulse (Heart Rate) 76 /min [place] 10-05-2019 13:30-0400 Pulse Oximetry 100 % [place] 10-05-2019 13:30-0400 Respiratory Rate 18 /min [place] 10-05-2019 10:26-0400 BMI (Body Mass Index) 24.37 kg/m2 [place] 10-05-2019 10:26-0400 Body weight 68.49 kg [place] 10-05-2019 10:26-0400 Height 167.6 cm [place] Encounters Encounter Date Encounter Type Care Provider Facility Start: 09-27-2023 ambulatory Rishi Cardenas ty:[facility] Start: 06-29-2023 End: 06-29-2023 ambulatory CASEY LETY Not Available Start: 06-13-2023 End: 06-13-2023 ambulatory CASEY LETY Not Available Start: 06-02-2023 End: 06-02-2023 ambulatory JORGE LAMAS [facility] Start: 05-19-2023 End: 05-19-2023 ambulatory Imad Asaad Facility:[facility] Start: 05-19-2023 End: 05-19-2023 Admission to same day surgery center DO Matthew Lemus Work Phone: [facility] Work Phone: Start: 05-19-2023 End: 05-19-2023 ambulatory DO Matthew Lemus Work Phone: [facility] Work Phone: Start: 05-17-2023 End: 05-17-2023 ambulatory Imad Asaad Other [employer] Other Start: 05-17-2023 Telephone encounter Imad Asaad [facility] Start: 05-12-2023 End: 05-12-2023 ambulatory Imad Asaad Facility:[facility] Start: 05-12-2023 End: 05-12-2023 ambulatory DO Matthew Lemus Work Phone: [facility] Work Phone: Start: 05-12-2023 End: 05-12-2023 Patient encounter procedure DO Matthew Lemus Work Phone: [facility] [place] Work Phone: Start: 05-10-2023 End: 05-11-2023 ambulatory Rishi MARSHALL Facility: [facility] Start: 05-10-2023 End: 05-10-2023 Patient encounter procedure Rishi MARSHALL [facility] [place] Start: 04-27-2023 End: 04-27-2023 ambulatory Imad Asaad Other [employer] Other Start: 04-27-2023 Office outpatient ne w 45 minutes Imad Asaad [facility] Start: 04-14-2023 End: 04-15-2023 ambulatory Rishi MARSHALL Facility::[id number] Start: 03-10-2023 End: 03-10-2023 Emergency department patient visit VINOD CLARK [facility] Start: 02-11-2023 End: 02-11-2023 ambulatory Sarah Anderson Other [employer] Other Start: 02-11-2023 Office outpatient visit 15 minutes Sarah Anderson [facility] Start: 02-03-2023 Telephone encounter Christine Macias DO Work Phone: Gastroenterology Comment on above: Appointment Start: 02-02-2023 End: 02-06-2023 Evaluation and management of inpatient Matthew Lemus Facility:[facility] Start: 02-02-2023 End: 02-06-2023 Evaluation and management of inpatient DO Matthew Lemus Work Phone: [address] Work Phone: Start: 02-02-2023 ambulatory Matthew Lemus Facility:[facility] Start: 09-23-[address] CASEY DAVIDSON . Facili ty:[facility]1 Start: 09-16-2022 End: 09-16-[address] BRIDGETTE KRAUSE . Facility:[facility] Start: 09-04-2022 End: 09-04-2022 ambulatory CHUY MCNAMARA Facility:[facility] Start: 08-30-2022 End: 08-31-[address] CASEY DAVIDSON . Facility:[facility] Start: 08-17-2022 End: 08-18-[address] CASEY DAVIDSON . Facility:[facility] Start: 08-10-2022 End: 08-11-2022 ambulatory CASEY DAVIDSON [facility] Start: 07-21-2022 End: 07-21-[address] CASEY DAVIDSON . Facility:[facility] Start: 07-20-2022 End: 07-21-[address] CASEY DAVIDSON . Facility:[facility] Start: 07-06-2022 End: 07-06-[address] MATTHEW LEMUS Facility:[facility] Start: 06-30-2022 End: 07-01-2022 ambulatory BRIDGETTE LEWIS [facility] Start: 06-30-2022 End: 07-01-2022 Emergency department patient visit Courtney Hernandez MD Work Phone: [facility] Labor and Delivery Comment on above: Hyperemesis [...] Start: 03-17-2022 Lab Kaleigh Hernandez ams Other [facility] Office Start: 03-03-2022 End: 03-04-[address] MATTHEW LEMUS Facility:[facility] Start: 02-10-2022 End: 02-10-2022 Admission to same day surgery center DO Matthew Lemus Work Phone: [facility] Start: 02-09-2022 Patient encounter procedure Kaleigh Guevara [employer] Start: 02-09-2022 Periodic preventive med est patient 18-39 yrs Kaleigh Guevara Other [employer] Office Start: 02-04-2022 Encounter for genera l adult medical examination without abnormal findings Bridgette Lewis [employer] Start: 02-04-2022 Lab Bridgette lindsay Other [facility] Office Start: 02-04-2022 Office Services Kaleigh Hernandez ams Other [facility] Office Start: 01-29-2022 Office outpatient visit 15 minutes Bridgette Lewis Other [employer] Office Start: 01-25-2022 End: 01-25-2022 ambulatory Tae Natarajan Other [employer] Other Start: 01-25-2022 Office outpatient ne w 45 minutes Tae Natarajan [facility] Vascular Surgery Start: 01-19-2022 Office outpatient ne w 30 minutes Bridgette Lewis Other [employer] Office Start: 12-17-2021 Encounter for genera l adult medical examination without abnormal findings [employer] Start: 12-04-2021 End: 12-05-[address] MATTHEW LEMUS Facility:[facility] Start: 11-14-2021 End: 11-14-[address] MATTHEW LEMUS Facility:[facility] Start: 10-12-2021 End: 10-12-2021 Subsequent hospital visit by physician Matthew Lemus Work Phone: [facility] Laboratory Start: 10-11-2021 End: 10-11-2021 Emergency department patient visit Matthew Lemus Work Phone: [facility] ED Comment on above: Lower abdominal pain (Primary Dx) Start: 10-09-2021 End: 10-10-[address] MATTHEW LEMUS Facility: Start: 09-29-2021 End: 09-29-2021 Patient encounter procedure Rishi MARSHALL [facility] Start: 09-04-2021 End: 09-04-2021 Patient encounter procedure Rishi MARSHALL [facility] Dina Start: 03-16-2020 End: 03-16-2020 Emergency department patient visit Catracho Parisi Work Phone: [facility] ED Comment on above: Viral URI with cough (Primary Dx) Start: 03-07-2020 End: 03-07-2020 Subsequent hospital visit by physician Areli Covid Screening Schedule [facility] Covid Screening Comment on above: Acute frontal sinusi tis, recurrence not specified Start: 03-03-2020 End: 03-03-2020 Subsequent hospital visit by physician Lisseth Johnson [facility] Laboratory Comment on above: Gross hematuria Start: 10-12-2019 End: 10-15-2019 Patient encounter [facility] Start: 10-12-2019 End: 10-14-2019 Subsequent hospital visit by physician Juan A Laguerre Room 2 [facility] Nuclear Medicine Comment on above: Intractable nausea a nd vomiting Start: 10-05-2019 End: 10-05-2019 Patient encounter procedure [facility] Start: 10-05-2019 End: 10-05-2019 Subsequent hospital visit by physician Toño Blanc Work Phone: [facility] Start: 10-03-2019 End: 10-04-2019 Patient encounter procedure CARRILLO RUBIO [facility] Start: 10-03-2019 End: 10-03-2019 Subsequent hospital visit by physician Lisseth [facility] [place] [facility] Start: 10-02-2019 End: 10-02-2019 Subsequent hospital visit by physician Tonio Swiftid19 Pat Screening Schedule [facility] Pre-Admit Testing Comment on above: No Show Start: 02-08-2019 End: 02-10-2019 Subsequent hospital visit by physician Khalida Grey Dr Room 2 [facility] Radiology Comment on above: Gross [...] Lewis Start: 06-17-2022 Docrev cur meds by [facility] mcarthur Start: 06-17-2022 Erythrocyte mean corpuscular volume determination Bridgette Lewis Start: 06-17-2022 Urinalysis, automated Bridgette Lewis Start: 06-15-2022 Docrev cur meds by [facility] Maricel Stafford Start: 06-15-2022 Spirometry for bronchospasm with prolonged evaluation after bronchodilator Bridgette Lewis Start: 05-17-2022 Docrev cur meds by [facility] Mariecl Stafford Start: 05-17-2022 Measurement of nitric oxide Maricel Stafford Start: 03-29-2022 Human chorionic gonadotropin measurement Maricel Stafford Start: 03-17-2022 Human chorionic gonadotropin measurement Bridgetteko Lewis Start: 02-10-2022 Abdominal aortogram DO Matthew Lemus Work Phone: Start: 02-09-2022 Docrev cur meds by [facility] Start: 02-04-2022 Comprehensive metabolic panel Kaleigh camp Start: 02-04-2022 Erythrocyte mean corpuscular volume determination Kaleigh Guevara Start: 02-04-2022 Lipid panel Kaleigh Guevara Start: 02-04-2022 Radiologic exam chest 2 views Bridgette Summer [facility] Start: 02-04-2022 Thyroid stimulating hormone measurement Kaleigh Guevara Start: 02-04-2022 Urinalysis, automated Kaleigh Guevara Start: 01-29-2022 Docrev cur meds by [facility] Start: 01-19-2022 Docrev cur meds by [facility] Bridgette mcarthur Start: 01-19-2022 Ketorolac tromethamine inj Bridgette Corado tts Start: 01-19-2022 Therapeutic prophylactic/dx injection subq/im Bridgette Debbie Start: 01-05-2022 Skin test for tuberculosis, Bhumika test Start: 12-23-2021 Skin test for tuberculosis, Bhumika test Start: 10-12-2021 Gonadotropin chorionic quantitative Matthew Lemus Work Phone: Start: 10-11-2021 Ct abdomen & pelvis w/contrast material Christine Vazquez PA-C Work Phone: Start: 10-11-2021 Assay of lipase Christine Vazquez REBECA Work Phone: Start: 10-11-2021 Urinalysis microscopic only [...] 10-05-2019 Level iv surg pathology gross&microscopic exam BANEGAS JAYASHREE Start: 10-05-2019 BEDREST TOÑO BLANC Start: 10-05-2019 Continuous pulse oximetry TOÑO MORALES N Start: 10-05-2019 ENCOURAGE DEEP BREATHING AND COUGHING TOÑO JAYASHREE Start: 10-05-2019 INITIATE OXYGEN THERAPY PROTOCOL TOÑO JAYASHREE Start: 10-05-2019 NOTIFY PHYSICIAN (SPECIFY) TOÑO KASSIDY NANCY Start: 10-05-2019 NURSING COMMUNICATION TOÑO BLANC Start: 10-05-2019 VITAL SIGNS TOÑO BLANC Start: 10-05-2019 INSERT PERIPHERAL IV TOÑO BLANC Start: 10-05-2019 Urine test visual color cmprsn meths TOÑO BLANC Start: 10-05-2019 Urine test visual color cmprsn meths Toño Blanc Work Phone: Start: 10-02-2019 COVID-19 CARRILLO RUBIO Start: 10-02-2019 COVID-19 Carrillo Rubio Work Phone: Start: 02-08-2019 Radiologic exam [...] Author Start: 04-09-2026 HIV screen HIV screen [place], [place] Comment on above: Postponed from 2012 (Unavailable) Start: 04-09-2026 HIV screening HIV screen [facility] Comment on above: Postponed from 2012 (Unavailable) Start: 11-10-2025 DTaP/Tdap/Td vaccine (5 - Td or Tdap) DTaP/Tdap/Td vaccine (5 - Td or Tdap) [facility] Start: 11-10-2025 DTaP/Tdap/Td vaccine (6 - Tdap) DTaP/Tdap/Td vaccine (6 - Tdap) [place] Start: 05-19-2023 [facility] Start: 02-06-2023 [facility] Start: 02-02-2023 Hospital admission [facility] Start: 01-28-2023 Influenza vaccination INFLUENZA (#1) [facility] Start: 08-09-2022 Lipid panel Lipid panel [facility] Start: 08-09-2022 Transferase alanine amino alt sgpt ALT [facility] Start: 08-09-2022 Transferase aspartate amino ast sgot AST [facility] Start: 06-21-2022 Iv infusion hydration initial 31 min-1 hour IV HYDRATION,INITIAL,31 MINUTES TO 1 HOUR [facility] Start: 01-19-2023 Basic metabolic panel calcium total Chem 8 [facility] Start: 06-15-2022 Brncdilat rspse spmtry pre&post-brncdilat admn Spirometry with bronchodilator [facility] Start: 05-30-2022 DEPRESSION ASSESSMENT DEPRESSION ASSESSMENT [facility] Start: 05-17-2022 Nitric oxide gas determination FENO [facility] Start: 04-03-2022 Depression Monitoring Depression Monitoring [facility] Start: 03-29-2022 Gonadotropin chorionic quantitative Beta HCG Quantitative [facility] Start: 03-17-2022 Gonadotropin chorionic quantitative Beta HCG Quantitative [facility] Start: 02-10-2022 [facility] Work Phone: Start: 02-04-2022 Assay of thyroid stimulating hormone tsh TSH [facility] Start: 02-04-2022 Blood count complete automated CBC PLATELET COUNT; AUTOMATED [facility] Start: 02-04-2022 Comprehensive metabolic panel Comp [facility] Start: 02-04-2022 Lipid panel Lipid panel [facility] Start: 02-04-2022 Urnls dip stick/tablet rgnt auto w/o microscopy UA [facility] Start: 02-04-2022 Chest PA & LAT [facility] Start: 01-19-2022 Therapeutic prophylactic/dx injection subq/im Sub Q/ IM injection [facility] Start: 12-28-2021 Influenza vaccination Flu vaccine (#1) [facility] Start: 12-23-2021 Skin test tuberculosis intradermal PPD (Skin test; tuberculosis, intradermal) [facility] Start: 07-29-2021 COVID-19 Vaccine (3 - Booster for Pfizer series) COVID-19 Vaccine (3 - Booster for Pfizer series) [facility] Start: 05-12-2021 COVID-19 Vaccine (5 - Booster) COVID-19 Vaccine (5 - Booster) MARTHA RITCHIE [facility] Start: 03-03-2020 End: 03-03-2020 Office Visit 03/03/2020 Office Visit Urology Jose Lala MD [address], [address] [place], [place] [id number] [facility] Start: 02-07-2020 Chlamydia screen Chlamydia screen [place] Start: 02-07-2020 Screening for Chlamydia trachomatis Chlamydia screen [facility] Start: 01-29-2020 Influenza vaccination [place] Start: 11-04-2019 Chlamydia screen Chlamydia screen [place] Start: 10-05-2019 End: 10-05-2019 Hospital Encounter [facility] Comment on above: EGD ESOPHAGOGASTRODUODENOSCOPY Start: 02-20-2019 End: 02-20-2019 Office Visit 02/20/2019 Office Visit 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, [employer] [address] [place] [address] [phone] [facility] Start: 02-08-2019 End: 02-08-2019 Appointment 02/08/2019 Appointment Radiology [facility] Start: 01-28-2019 Influenza vaccination Flu vaccine (#1) [place] Start: 2018 Cervical cancer screen Cervical cancer screen [place] Start: 2018 PAP TESTING PAP TESTING [facility] Start: 2018 Screening for malignant neoplasm of cervix [facility] Start: 2016 Urine microalbumin profile DTAP,TDAP,TD (1 - Tdap) [facility] Start: 2015 Hepatitis C screening Hepatitis C screen [facility] Start: 2015 HEPATITIS C SCREENING HEPATITIS C SCREENING [facility] Start: 2015 HIV SCREENING HIV SCREENING [facility] Start: 02-05-2014 Varicella vaccine (2 of 2 - 13+ 2-dose series) Varicella vaccine (2 of 2 - 13+ 2-dose series) [facility] Start: 2012 HPV vaccine (1 - Female 3-dose series) HPV vaccine (1 - Female 3-dose series) [place] Start: 2011 PEDS TO ADULT TRANSITION ANNUAL ASSESSMENT PEDS TO ADULT TRANSITION ANNUAL ASSESSMENT [facility] Start: 2010 Varicella Vaccine (1 of 2 - 13+ 2-dose series) Varicella Vaccine (1 of 2 - 13+ 2-dose series) [place] Start: 2009 PEDS TO ADULT TRANSITION INITIAL DISCUSSION PEDS TO ADULT TRANSITION INITIAL DISCUSSION [facility] Start: 2008 HPV vaccine (1 - 2-dose series) HPV vaccine (1 - 2-dose series) [facility] Start: 2006 HPV VACCINE (1 - 2-dose series) HPV VACCINE (1 - 2-dose series) [facility] Start: 2003 Pneumococcal 0-64 years Vaccine (1 - PCV) Pneumococcal 0-64 years Vaccine (1 - PCV) [facility] Start: 2003 Pneumococcal 0-64 years Vaccine (1 of 1 - PPSV23) Pneumococcal 0-64 years Vaccine (1 of 1 - PPSV23) [place] Start: 1998 Varicella vaccine (1 of 2 - 2-dose childhood series) Varicella vaccine (1 of 2 - 2-dose childhood series) [place] Start: 1997 COVID-19 VACCINE (#1) COVID-19 VACCINE (#1) [facility] Start: 1997 HEPATITIS B (1 of 3 - 3-dose series) HEPATITIS B (1 of 3 - 3-dose series) [facility] End: 01-15-2019 Bacteria identified Cx Nom (U) Urine Culture Microbiology Routine Dysuria Gross hematuria 1 Occurrences starting 01/15/2019 until 01/15/2019 [place] Comment on above: 1 Occurrences starting 01/15/2019 until 01/15/2019 End: 02-06-2019 C.trachomatis N.gonorrhoeae DNA, Urine C.trachomatis N.gonorrhoeae DNA, Urine Microbiology Routine Gross hematuria Urgency of urination 1 Occurrences starting 02/06/2019 until 02/06/2019 [place] Comment on above: 1 Occurrences starting 02/06/2019 until 02/06/2019 C.trachomatis N.gono rrhoeae DNA, Urine C.trachomatis N.gonorrhoeae DNA, Urine Microbiology Routine Gross hematuria Urgency of urination 02/06/2019 12:22 PM EDT [place] COVID-19 [place] End: 10-02-2019 COVID-19 COVID-19 Lab Routine One Time for 1 Occurrences starting 10/02/2019 until 10/02/2019 [place] Comment on above: One Time for 1 Occurrences starting 09/2019 until 10/02/2019 End: 03-07-2020 COVID-19 Ambulatory COVID-19 Ambulatory Lab Routine Acute frontal sinusitis, recurrence not specified 1 Occurrences starting 03/07/2020 until 03/07/2020 [place] Comment on above: 1 Occurrences starting 03/07/2020 until 03/07/2020 COVID-19 Ambulatory COVID-19 Amb ulatory Lab Routine Acute frontal sinusitis, recurrence not specified 03/07/2020 11:12 AM EDT [place] End: 03-16-2020 COVID-19, PCR COVID-19, PCR Lab Routine One Time for 1 Occurrences starting 03/16/2020 until 03/16/2020 [place] Comment on above: One Time for 1 Occurrences starting 02/27 until 03/16/2020 End: 03-03-2020 Culture, Urine Culture, Urine Microbiology Routine Gross hematuria 1 Occurrences starting 03/03/2020 until 03/03/2020 [place] Comment on above: 1 Occurrences starting 03/03/2020 until 03/03/2020 Culture, Urine [place] End: 06-30-2022 Culture, Urine [facility] Work Phone: Comment on above: One Time for 1 Occurrences starting 05/2022 until 06/30/2022 H. PYLORI DETECTION [place] Comment on above: Release Upon Ordering for 1 Occurrences starting 10/05/2019 Initiate Oxygen Therapy Protocol Initiate Oxygen Therapy Protocol Respiratory Care Routine Daily until discontinued starting 10/05/2019 [facility] [place] Comment on above: Daily until discontinued starting 2019 Patient Education Depression, Ad declan (DC) [facility] [place] Instructions [facility] Work Phone: Patient referral [facility] Work Phone: Phase I & II - metered glucose P hase I & II - metered glucose Point of Care Testing Routine As Needed until discontinued starting 10/05/2019 [facility] [place] Comment on above: As Needed until discontinued starting End: 10-05-2019 POC Urine Qual POC Urine Qual Point of Care Testing Routine One Time for 1 Occurrences starting 10/05/2019 until 10/05/2019 [facility] [place] Comment on above: One Time for 1 Occurrences starting 12/2019 until 10/05/2019 Surgical Pathology Surgical Path ology Lab Routine Release Upon Ordering for 1 Occurrences starting 10/05/2019 [facility] [place] Comment on above: Release Upon Ordering for 1 Occurrences starting 10/05/2019 End: 02-06-2019 Urine culture clean catch Urine culture clean catch Microbiology Routine Gross hematuria Urgency of urination 1 Occurrences starting 02/06/2019 until 02/06/2019 [facility] [place] Comment on above: 1 Occurrences starting 02/06/2019 until 02/06/2019 Urine culture clean catch Urine culture clean catch Microbiology Routine Gross hematuria Urgency of urination 02/06/2019 12:22 PM EDT [place] Immunizations Immunization Date Immunization Notes Care Provider Frank blanco 09-17-2022 tetanus toxoid, reduced diphtheria toxoid, and acellular pertussis vaccine, adsorbed Rishi MARSHALL [facility] 01-05-2022 Tubersol Ortega [facility] 12-23-2021 Tubersol Ortega [facility]arp[employer] 04-28-2021 influenza virus vaccine, unspecified formulation Rishi MARSHALL [facility] 03-17-2021 COVID-19, Pfizer, 30mcg/0.3ml Bridgette Lewis [facility] [employer] 02-28-2021 SARS-CoV-2 (COVID-19 ) mRNA BNT-162b2 vax Rishimaricel MARSHALL [facility] 02-27-2021 SARS-CoV-2 (COVID-19 ) Ad26 vaccine, recombinant Rishi MARSHALL [facility] 02-08-2021 SARS-CoV-2 (COVID-19 ) mRNA BNT-162b2 vax Rishi MARSHALL [facility] 01-28-2021 SARS-CoV-2 (COVID-19 ) Ad26 vaccine, recombinant Rishi MARSHALL [facility] 01-20-2021 COVID-19, Pfizer, 30mcg/0.3ml Bridgette [place] [employer] 05-02-2018 influenza virus vaccine, unspecified formulation [facility] [place] 01-27-2016 Influenza Vaccine, unspecified formulation [facility] [place] 01-27-2016 influenza virus vaccine, unspecified formulation Rishi MARSHALL [facility] 12-29-2015 hepatitis B vaccine, adult dosage Rishi MARSHALL [facility] 12-17-2015 hepatitis B vaccine, unspecified formulation [facility] [place] 11-26-2015 hepatitis B vaccine, adult dosage Rishi MARSHALL [facility] 11-11-2015 diphtheria, tetanus toxoids and acellular pertussis vaccine [facility] 11-11-2015 tetanus toxoid, reduced diphtheria toxoid, and acellular pertussis vaccine, adsorbed [employer] [facility] 01-08-2014 tetanus toxoid, reduced diphtheria toxoid, and acellular pertussis vaccine, adsorbed [employer] [facility] 01-08-2014 varicella virus vaccine Rishi [employer] [facility] 10-17-2002 DTaP, unspecified formulation [employer] [facility] 10-17-2002 measles, mumps and rubella virus vaccine [facility] [place] 10-17-2002 poliovirus vaccine, inactivated [facility] [place] 05-17-1998 Hib, unspecified Dipakkumar [facility] 05-17-1998 poliovirus vaccine, inactivated [facility] [place] [place] 03-27-1998 diphtheria, tetanus toxoids and acellular pertussis vaccine [facility] 03-27-1998 DTaP, unspecified formulation [employer] [facility] 03-27-1998 Hib, unspecified Dipakkumar [facility] 03-27-1998 measles, mumps and rubella virus vaccine [facility] [place] 1997 diphtheria, tetanus toxoids and acellular pertussis vaccine [facility], [place] 1997 DTaP, unspecified formulation [employer] [facility] 1997 hepatitis B vaccine, adult dosage Matthew [employer] Work Phone: [facility] Work Phone: 1997 hepatitis B vaccine, unspecified formulation Dipakkumar [facility], [place] 1997 Hib, unspecified Dipakkumar [facility], [place] 1997 poliovirus vaccine, inactivated Dipakkvivian [facility], [place] 1997 diphtheria, tetanus toxoids and acellular pertussis vaccine [facility], [place] 1997 DTaP, unspecified formulation Rishi MARSHALL [facility] 1997 diphtheria, tetanus toxoids and acellular pertussis vaccine [facility] [place] [place] 1997 DTaP, unspecified formulation Rishi MARSHALL [facility] 1997 Hib, unspecified Dipakkumar [facility], [place] 1997 Hib, unspecified formulation Rishi MARSHALL [facility] 1997 poliovirus vaccine, inactivated Dipakian [facility], [place] 1997 hepatitis B vaccine, adult dosage Matthew Marlenyjulien Work Phone: [employer] Work Phone: 1997 hepatitis B vaccine, pediatric or pediatric/adolescent dosage Rishi MARSHALL [facility] 1997 hepatitis B vaccine, unspecified formulation Dipakkvivian [facility], [place] 1997 hepatitis B vaccine, adult dosage Matthew Marlenyjulien Work Phone: [employer] Work Phone: 1997 hepatitis B vaccine, pediatric or pediatric/adolescent dosage Rishi MARSHALL [facility] 1997 hepatitis B vaccine, unspecified formulation [facility] [place] Payers Date Payer Category Payer Medicaid [facility] [id number] 2022-Present [phone] [address] [place] [address] Medicaid [id number] 2015 Unknown BCBS [place] - [place] P PO xxxxxxxxxxxx 2015-Present [address] [place] [address] xxxxxxxxxxxx [id number] .[id number] 1997 Unknown [id number] 2.16.840.1.770954.3.579.2.177 1997 Unknown [id number] 2.16.840.1.846986.3.579.2.177 1997 Unknown [id number] 2.16.840.1.770699.3.579.2.175 1997 Unknown [id number] 2.16.840.1.385207.3.579.2.593 1997 Unknown [id number] 2.16.840.1.737298.3.579.2.593 1997 Unknown [id number] 2.16.840.1.919954.3.579.2.593 1997 Unknown [id number] 2.16.840.1.893977.3.579.2.593 1997 Unknown [id number] 2.16.840.1.181766.3.579.2.593 1997 Unknown [id number] 2.16.840.1.763946.3.579.2.593 1997 Unknown [id number] 2.16.840.1.130687.3.579.2.593 1997 Unknown [id number] 2.16.840.1.200267.3.579.2.593 1997 Unknown [id number] 2.16.840.1.761290.3.579.2.593 1997 Unknown [id number] 2.16.840.1.030121.3.579.2.593 1997 Unknown [id number] 2.16.840.1.359595.3.579.2.593 1997 Unknown [id number] 2.16.840.1.423035.3.579.2.593 1997 Unknown [id number] 2.16.840.1.666651.3.579.2.593 1997 Unknown [id number] 2.16.840.1.415776.3.579.2.593 1997 Unknown [id number] 2.16.840.1.776113.3.579.2.593 1997 Unknown [id number] 2.16.840.1.859058.3.579.2.593 1997 Unknown [id number] 2.16.840.1.905885.3.579.2.593 1997 Unknown [id number] 2.16.840.1.293529.3.579.2.593 1997 Unknown [id number] 2.16.840.1.332435.3.579.2.593 1997 Unknown [id number] 2.16.840.1.085433.3.579.2.173 1997 Unknown [id number] 2.16.840.1.294653.3.579.2.173 1997 Unknown [id number] 2.16.840.1.815250.3.579.2.173 1997 Unknown [id number] 2.16.840.1.592079.3.579.2.727 1997 Unknown [id number] 2.16.840.1.432308.3.579.2.727 1997 Unknown [id number] 2.16.840.1.116855.3.579.2.727 1997 Unknown [id number] 2.16.840.1.736917.3.579.2.128 6 1997 Unknown [id number] 2.16.840.1.644399.3.579.2.125 9 1997 Unknown [id number] 2.16.840.1.907123.3.579.2.125 9 1959 Self-pay [id number] 1959 Unknown [id number] 1959 Unknown [id number] 2.16.840.1.723945.3.441 1959 Unknown [id number] Unknown [id number] 2.16.840.1.575231.3.579.2.531 Unknown [id number] 2.16.840.1.880574.3.579.2.531 Unknown [id number] 2.16.840.1.962775.3.579.2.531 Unknown [id number] 2.16.840.1.395809.3.579.2.531 Social History Date Type Detail Facility Start: 02-06-2019 End: 05-19-2023 Tobacco smoking status NHIS Never smoker [place] Start: 11-15-2018 End: 02-06-2019 Alcohol intake No [place] Start: 1997 Sex Assigned At Not on file M [place] Start: 07-31-2019 End: 10-05-2019 Alcohol intake Current non-drinker of alcohol (finding) [place] Exposure to SARS-CoV -2 (event) Unable to assess [place] Start: 02-26-2017 End: 03-03-2020 Tobacco use and exposure Never used [place] Start: 03-03-2020 End: 07-01-2022 Alcohol intake Current drinker of alcohol (finding) [place] Start: 03-03-2020 Alcohol Comment occasional Althea Ramírez [place] Start: 10-01-2021 End: 06-30-2022 Exposure to SARS-CoV-2 (event) Not sure [place] Tobacco smoking status Never [facility] Start: 04-03-2021 History SDOH Financial 5 [employer] Work Phone: Start: 04-03-2021 History SDOH Food Worry 1 [employer] Work Phone: Start: 04-03-2021 History SDOH Transpo rt Med 2 [employer] Work Phone: Start: *Tobacco [facility] Start: 1995 Sex Assigned At Female F [facility] Tobacco smoking stat us NHIS Tobacco smoking consumption unknown [facility] Goals Date Patient Goal Desired Activity /State Functional Status Date Assessment Result Facility 05-10-2023 Functional Status N/A [facility] 02-06-2023 Functional status Patient at Baseline [facility] Work Phone: Mental Status Date Assessment Result Facility 02-06-2023 Cognitive function Cognitive Sta tus Patient at Baseline [facility] Work Phone: Clinical Notes 09-04-2021 to 05-19-2023 Note Date & Type Note Facility 05-19-2023 History and physical note Note Date/Time May 19, 2023 1:38pm [facility] [address] [place] [address] Gastroenterology H&P Signed Patient: Lulú Gaitan MR#: [id number] : 1995 Acct:[id number] Age/Sex: 28 / F Adm Date: 3 Loc: Room: Type: [facility] Attending Dr: Fany Ceballos MD Copies to: MD Matthew Abarca,DO~ Date of Service: 05/19/2023 HISTORY & PHYSICAL: [...] <Electronically signed by Fany Ceballos MD> 05/19/231337 [facility] Work Phone: 1(529) 711-163312-21-2023 [facility]* Encounter Date Diagnosis Assessment Notes Treatment Notes Treatment Clinical Notes Apr, Abnormal abdominal C T scan (ICD-10 - R93.5) Apr, Pyelonephritis of left kidney (ICD-10 - N12) [employer] Other 12-12-2023 Hospital Discharge instructions Patient Education [...] Follow these instructions at home: Medicines Take xdwi-etb-llzhimz and prescription medicines only as told by [...] or the blood stops without treatment. Take owzb-tjl-nbddvxo and prescription medicines only as told by your health care provider. Drink enough fluid to keep your urine pale yellow. This information is not intended to replace advice given to you by your health care provider. Make sure you discuss any questions you have with your health care provider. Document Revised: 01/14/2021 Document Reviewed: 01/14/2021 [employer] Patient Education 2022 [employer]. Follow Up Care 05/06/2023 07:59:50 With:ROLANDO DEVLIN, Rishi Ghosh, URL Address: [facility] [address], [place] [address]- When:Within 4 Month(s) Comments:w/PVR [facility] 11-29-2023 Evaluation note* Encounter Date Diagnosis Assessment Notes Treatment Notes Treatment Clinical Notes Mar, Irritable bowel syndrome with constipation (ICD-10 - K58.1) Mar, Delayed gastric emptying (ICD-10 - K30) Mar, Vomiting (ICD-10 - R11.10) [employer] Other 09-15-2023 Evaluation note* Encounter Date Diagnosis [...] no improvement in 2 to 3 days [employer] Other 09-10-2023 Hospital Discharge instructions Additional Instructions Important Contact Information You can call [facility] at [phone] any time day or night if you [...] Text Line (available 20/12) text 4HOPE to [phone] [facility] Hope Line (available 8 a.m. Midnight) call [phone] ([phone]) [facility] Work Phone: 1(436) 749-664209-09-2023 Progress note Author Karri Kamara [facility] February 05, 2023 12:00pm Note Date/Time February 05, 2023 12:00pm [facility] [address] [place] [address] Psychiatry Progress Note Signed Patient: Lulú Gaitan MR#: [id number] : 1995 Acct:[id number] Age/Sex: 27 / F Adm Date: 3 Loc: Room: [address] [place] [address] Type : ADM IN Attending Dr: Karri [...] signed by Karri Kamara MD> 02/05/23 1200 [facility] Work Phone: 1(228) 888-326709-08-2023 Progress note Author Karri Kamara [facility] February 04, 2023 1:43pm Note Date/Time February 04, 2023 1:44pm [facility] [address] [place] [address] Psychiatry Progress Note Signed Patient: Lulú Gaitan MR#: [id number] : 1995 Acct:[id number] Age/Sex: 27 / F Adm Date: 3 Loc: Room: [address] [place] [address] Type : ADM IN Attending Dr: Karri [...] alternatives explained Documented By: Karri Kamara MD 02/04/2329 Signed By: <Electronically signed by Karri Kamara MD> 02/04/23 1343 [facility] Work Phone: 1(862) 404-404809-07-2023 Miscellaneous Notes* Telephone Encounter - Viviana David [...] list full name of hospital or facility)? [facility] If the patient had a gastric [...] G/J Tube?No Preferred phone number for contact: [phone] documented in this encounterWilson Health09-07-2023 History and physical note Author Karri Kamara [facility] February 03, 2023 11:58am Note Date/Time February 03, 2023 11:58am [facility] [address] [place] [address] Psychiatry H&P Signed Patient: Lulú Gaitan MR#: [id number] : 1995 Acct:[id number] Age/Sex: 27 / F Adm Date: 3 Loc: Room: [address] [place] [address] Type: ADM IN Attending Dr: Karri Kamara [...] is now 5 months old. She states moira delivered her daughter 11 weeks premature and [...] States she recently saw her psychiatrist at [facility] and was restarted on Latuda. 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 Relationships: Patient states her boyfriend and [...] feel like current medical regimen is working [facility] Medical History (Updated 09/07/23 @ 10:00 by Ivanna Blanco) Anxiety Bipolar [...] Cloudy A Urine pH 6.0 Ur Specific Carver 1.027 Urine Protein 30 H Urine Glucose [...] Color Urine Appearance Urine pH Ur Specific Carver Urine Protein Urine Glucose (UA) Urine Ketones [...] signed by Karri Kamara MD> 02/03/23 1158 [facility] Work Phone: 1(402) 590-165802-02-2023 History of Present illness Narrative* Jenna Elliott [...] needs have been addressed while in facility. Y * Jenna Elliott RN - 06/30/2022 11:40 PM EST Nurse at bedside from [id number]. Nurse pal[pates pt's abdomen when pt feeling [...] at this time. documented in this encounterBON [facility] [employer] Work Phone: 1(495) 860-964802-02-2023 Hospital Discharge instructions* Discharge Instructions* Jenna Elliott RN - 07/01/2022 12:27 AM EST OUTPATIENT DISCHARGE Dr. Miguel Aguilera [facility] Dr. Katelynn Leslie [address] [facility] [address] [place] or Sam Chyna Prakash [facility] [place] [address] [place] [address] ACTIVITY LIMITATIONS: ( x )Up and about [...] AND DELIVERY . documented in this encounterBON [employer] Work Phone: 1(850) 368-436309-14-2022 History and physical note Author Tae Natarajan [facility] February 10, 2022 5:06pm Note Date/Time February 10, 2022 5:06pm [facility] [address] [place] [address] Vascular Surgery H&P Signed Patient: Lulú Gaitan MR#: [id number] : 1995 Acct:[id number] Age/Sex: 26 / F Adm Date: 2 Loc: Room: Type: [facility] Attending Dr: Tae Natarajan MD Copies to: MD Matthew Hernandez,DO~ Date of Service: 02/10/2022 HPI History of Present Illness Chief complaint: Hematuria HPI: Ms. Gaitan is a 26 year old female being evaluated by Dr. Marshall for recurrent gross hematuria. Other evaluation including CT scan has been negative and Dr. Marshall requested diagnostic arteriogram and venogram. [facility] Vaccinated for [facility]-19?: Yes Medical History (Updated [...] mg PO DAILY 02/10/22 [History Confirmed 02/10/22] bqtlgqrian-vprrvawjoiuap-gqhwbtmg 50 mg-300 mg-40 mg capsule (Fioricet) 1 [...] signed by MD Tae Natarajan> 02/10/22 1706 [facility] Work Phone: 1(372) 876-108008-29-2022 Evaluation note* Encounter Date Diagnosis Assessment Notes [...] ahead with arteriogram and venogram as requested. [employer] Other 05-15-2022 Hospital Discharge instructions* Instructions* Christine Vazquez PA-C - 10/11/2021 Take ibuprofen tkni-lmi-tfzxxmj 600 mg 3 times daily as needed for pain. Follow- up with your primary care provider and discuss additional testing if symptoms not improved. Return to the emergency room for any worsening symptoms. * Attachments The following attachments cannot be sent through Care Everywhere. * Pelvic Pain (Peruvian) [facility] [employer] Work Phone: 1(379) 278-431405-03-2022 Hospital Discharge instructions Patient Education 09/29/2021 13:37:25 [...] Follow these instructions at home: Medicines Take xepj-vfu-vonbhqa and prescription medicines only as told by [...] or the blood stops without treatment. Take pnqt-hxa-vkrbajx and prescription medicines only as told by your health care provider. Drink enough fluid to keep your urine clear or pale yellow. This information is not intended to replace advice given to you by your health care provider. Make sure you discuss any questions you have with your health care provider. Document Released: 05/16/2006 Document Revised: 10/10/2019 Document Reviewed: 06/18/2017 [employer] Patient Education 2019 [employer] Follow Up Care 09/22/2021 14:13:42 With:ROLANDO DEVLIN, Rishi Ghosh, URL Address: [facility] [address] , [place] [address]- Business (1) When: Unknown [facility] 04-08-2022 Hospital Discharge instructions Patient Education [...] including vitamins, herbs, eye drops, creams, and dabk-nbp-cktezuu medicines. Any problems you or family members [...] provider tells you to take them. ?Taking qljm-owj-ugxtptd medicines, vitamins, herbs, and supplements. Follow instructions [...] Follow these instructions at home: Medicines Take qjnl-zrw-nqbrwpx and prescription medicines only as told by [...] 05/13/2001 Document Revised: 05/08/2019 Document Reviewed: 05/08/2019 [employer] Patient Education 2020 [employer] Follow Up Care 08/07/2021 15:47:45 With:ROLANDO DEVLIN, Rishi Ghosh, URL Address: [address] [place] [address]- When: Unknown Comments:will schedule [employer] [facility] discharge summary Author Karri Kamara [facility] February 06, 2023 11:04am Note Date/Time February 06, 2023 11:04am [facility] [address] [place], [place] [id number] Discharge Summary Signed Patient: Lulú Gaitan MR#: [id number] : 1995 Acct:[id number] Age/Sex: 27 / F Adm Date: 3 Loc: Room: 5U3353-[address]: Karri Kamara MD Copies to: [...] States she recently saw her psychiatrist at [facility] and was restarted on Latuda. 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 Ifat any time you are feeling an increase in your psychiatric symptoms, call your physician or behavioral healthcare provider. If any time you have thoughts of harming yourself or others contact one of the following: Call 88 (available 20/12) Crisis Text Line (available 20/12) text 4HOPE to [phone] [facility] Line (available 8 a.m. Midnight) call [phone] ([phone]) Stand Alone Forms: Work/School Release Form Prescriptions: [...] Follow Up: [facility] [Other] (fax:[phone]) [facility] [Outside] Matthew Lemus DO [Primary Care Provider] - (Please contact for any medical needs or concerns) Documented By: Karri Kamara MD 02/06/23 1103 Signed By: <Electronically signed by Karri Kamara MD> 02/06/23 1104 [facility] [employer] Work Phone: Evaluation + Plan note No data available for this section [facility] evaluation + Plan note Future Appointments Appointment Date:02/05/2022 09:45:00 AM Scheduled Provider:Rishi MARSHALL MD Location:[facility] Appointment Type:URO Office Visit [facility] Evaluation + Plan note Future Appointments Appointment Date:09/27/2023 10:15:00 AM Scheduled Provider:Rishi MARSHALL MD Location:[facility] Appointment Type:URO Office Visit [facility] Evaluation note* Diagnosis Lower abdominal pain- Primary Abdominal pain, other specified site documented in this encounter [employer] Phone: evalgyrrmt note* Diagnosis Onset Date Resolution Status Hematuria acute [facility] [employer] Work Phone: Evaluation note* Diagnosis Hyperemesis- Primary Persistent vomiting Pelvic cramping Unspecified symptom associated with female genital organs documented in this encounter [facility] [employer] Phone: evaladnspp note* Diagnosis Onset Date Resolution Status Bipolar 1 disorder acute Depression acute Major depressive disorder, recurrent acute Suicidal ideation acute [facility] Work Phone: Evaluation noteNo assessment information available [facility] Work Phone: Hiscaum general Narrative - Reported* Type Description Date Medical History migraine headache Medical History endometriosis Medical History PCOS Medical History borderline personality disorder Medical History bipolar Medical History anxiety Medical History chronic depression Surgical History laparoscopy x3 female Surgical History umbilical hernia repair Hospitalization History 1 [facility] 2020 Hospitalization History as a child for stomach p ain [employer] Other History general Narrative - Reported* Type Description Date Medical History migraine headache Medical History endometriosis Medical History PCOS Medical History borderline personality disorder Medical History bipolar Medical History anxiety Medical History chronic depression Surgical History laparoscopy x3 female Surgical History umbilical hernia repair Hospitalization History 1 [facility] 2020 Hospitalization History as a child for stomach p ain Hospitalization History LATUDA REACTION 1 [facility] 02/02/2023 [employer] Other Hospital Discharge instructions Additional Instructions Hold Metformin for 2 days. No heavy lifting of anything over 5 pounds. No pushing or pulling. No vigorous activity. Remove dressing in 24 hours.[facility] Work Phone: Hospital Discharge instructions Additional Instructions [...] problems. -Follow up with PCP. -Office number [phone]. 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 Go to [email or web address] and sign in to your Beam. account. Enter J454 in the Search Health Information box to learn more about Upper GI Endoscopy: What to Expect at Home. . 8736-1212 [employer]. Care instructions adapted under license by [employer]. This care instruction is for use with your licensed healthcare professional. If you have questions about a medical condition or this instruction, always ask your healthcare professional. [employer] disclaims any warranty or liability for your use of this information. Content Version: 9.9.385412; Last Revised: July 19, 2012 Upper GI [...] Where can you learn more? Go to [email or web address] and sign in to your Beam. account. Enter J454 in the Search Health Information box to learn more about Upper GI Endoscopy: What to Expect at Home. . 5611-3422 [employer]. Care instructions adapted under license by [employer]. This care instruction is for use with your licensed healthcare professional. If you have questions about a medical condition or this instruction, always ask your healthcare professional. [employer] disclaims any warranty or liability for your use of this information. Content Version: 9.9.005697; Last Revised: July 19, 2012 Upper GI [...] Where can you learn more? Go to [email or web address] and sign in to your Beam. account. Enter J454 in the Search Health Information box to learn more about Upper GI Endoscopy: What to Expect at Home. . 4184-6539 [employer]. Care instructions adapted under license by [employer]. This care instruction is for use with your licensed healthcare professional. If you have questions about a medical condition or this instruction, always ask your healthcare professional. [employer] disclaims any warranty or liability for your use of this information. Content Version: 9.9.477382; Last Revised: July 19, 2012 Upper GI [...] Where can you learn more? Go to [email or web address] and sign in to your Be[employer]. account. Enter J454 in the [facility] Information box to learn more about Upper GI Endoscopy: What to Expect at Home. . 7164-7986 [employer]. Care instructions adapted under license by [employer]. This care instruction is for use with your licensed healthcare professional. If you have questions about a medical condition or this instruction, always ask your healthcare professional. [employer] disclaims any warranty or liability for your use of this information. Content Version: 99.516036; Last Revised: July 19, 2012 Upper GI [...] Where can you learn more? Go to [email or web address] and sign in to your Beam. account. Enter J454 in the Search Health Information box to learn more about Upper GI Endoscopy: What to Expect at Home. . 9921-1808 [employer]. Care instructions adapted under license by [employer]. This care instruction is for use with your licensed healthcare professional. If you have questions about a medical condition or this instruction, always ask your healthcare professional. [employer] disclaims any warranty or liability for your use of this information. Content Version: 9.9.330016; Last Revised: July 19, 2012 Upper GI [...] Where can you learn more? Go to [email or web address] and sign in to your Be[employer]. account. Enter J454 in the Search Health Information box to learn more about Upper GI Endoscopy: What to Expect at Home. . 9815-4270 [employer]. Care instructions adapted under license by [employer]. This care instruction is for use with your licensed healthcare professional. If you have questions about a medical condition or this instruction, always ask your healthcare professional. [employer] disclaims any warranty or liability for your use of this information. Content Version: 9.9.901201; Last Revised: July 19, 2012 Upper GI [...] the day after the test, use an igks-cyf-vqfjzfy spray to numb your throat. Follow-up care [...] Where can you learn more? Go to [email or web address] and sign in to your Beam. account. Enter J454 in the Search Health Information box to learn more about Upper GI Endoscopy: What to Expect at Home. If you do not have an account, please click on the Sign Up Now link. Current as of: January 07, 2019Content Version: 12.4 [employer]. Care instructions adapted under license by [employer]. If you have questions about a medical condition or this instruction, always ask your healthcare professional. [employer] disclaims any warranty or liability for your use of this information. documented in this encounter* Attachments The following attachments cannot be sent through Care Everywhere. * URI (Upper Respiratory Infection): Viral (Peruvian) documented in this encounter Summary Purpose Family [...] SCAN W EJECTION FRACTION Toño Blanc MD [address] [place] [address] Chief Complaint and Reason for Visit Chief [...] To Contact Diagnoses Dysphagia DX DYSPHAGIA Procedures MA ESOPHAGOGASTRODUODENOSCOPY TRANSORAL DIAGNOSTIC EGD ESOPHAGOGASTRODUODENOSCOPY Toño Blanc MD [address] [place] [address] [facility] Reason Comments Cough pt states onset last week. PT states she is taking Prednisone and Keflex for a sinus infection Status Reason Specialty Diagnoses / Procedures Referred By Contact Referred To Contact Not Required - [facility] Diagnoses Nausea with vomiting, unspecified Procedures HC NM HEPATOBILIARY IMAGING W PHARM Toño Blanc MD [address] [place] [address] [facility] Nuclear Medicine [address] [place] [address] Reason Comments Abdominal Cramping onset this am Vaginal Bleeding spotting onset at approx 1200, patient states she thinks she might be Reason Comments Abdominal Pain Started earlier toda y, states having contraction like pain, was leaking clear fluid, 17 weeks , has hyperemesis and on Zofran pump Reason Comments Appointment INFORMATION SOURCE (unrecogn ized section and content) DATE CREATED AUTHOR 10/15/2019 [facility] DATE CREATED AUTHOR AUTHOR'S ORGANIZ ATION 03/07/2020 [facility] DATE CREATED AUTHOR AUTHOR'S ORGANIZ ATION 07/27/2021 [facility] DATE CREATED AUTHOR AUTHOR'S ORGANIZ ATION 09/24/2022 [facility] DATE CREATED AUTHOR AUTHOR'S ORGANIZ ATION 02/12/2023 [facility] DATE CREATED AUTHOR AUTHOR'S ORGANIZ ATION 03/12/2023 [facility] DATE CREATED AUTHOR AUTHOR'S ORGANIZ ATION 05/27/2023 [facility] DATE CREATED AUTHOR AUTHOR'S ORGANIZ ATION 05/31/2023 [facility] DATE CREATED AUTHOR AUTHOR'S ORGANIZ ATION 06/05/2023 [facility] DATE CREATED AUTHOR AUTHOR'S ORGANIZ ATION 07/01/2023 [facility] EPIC Scheduled Active [...] 1630 1628 (Given - Provid er: Megan Hawley, KATHERINE) PRN Medication Order 10/09/2021 10/10/2021 10/11/2021 iopamidol [...] On Tue06/30/22 at 1845, For 1 dose 1908 (New Bag - Provider: Rachael Lynn RN)[phone] [...] Kamara MD Admit Provider, Attending Provider Active [employer] Supervisor Relationship Specialty Start Date End Date Matthew Lemus [address] [place] [address] PCP - General Internal Medicine 10/11/21 [employer] Supervisor Relationship Specialty Start Date End Date Matthew Lemus [address] [place] [address] PCP - General Internal Medicine 10/11/21 Team Status: Inactive Member Role Status Dates Matthew Lemus , Primary Care Provider Active Tae Natarajan MD Attending Provider Active [employer] Supervisor Relationship Specialty Start Date End Date Bridgette Lewis MD [address] [place] [address] PCP - General Internal Medicine 06/30/22 [employer] Supervisor Relationship Specialty Start Date End Date Agustin Ramos [address] [place] [phone] PCP - General 01/27/04 Team Status: [...] or prosecute any alcohol or drug abuse patient.[facility] FOR RECORDS PERTAINING TO PATIENTS WHO ARE [...] BE BASED ON THE PRIMARY CLINICAL RECORDS. [employer]. provides no warranty or guarantee of the accuracy or completeness of information in this document.
[2023-07-04 10:34] LABS: Free T4 1.23 ng/dL (0.76-1.46)
[2023-07-04 10:38] LABS: Thyroid Stimulating Hormone 1.166 uIU/mL (0.358-3.740)
== END 2023-07-04 09:28 | disposition home or self-care (01) ==
LOC: LAB 09:29
PROVIDERS: PCP Internal Medicine; Visit Provider Obstetrics & Gynecology
DX: Z00.00 Encounter for general adult medical examination without abnormal findings (principal)
CPT/HCPCS: 36415; 84439; 84443

== ENCOUNTER 2023-07-15 08:52 | Outpatient (OUT) | payer OTHER, SELFPAY | END 2023-07-15 08:53 | disposition home or self-care (01) | LOC: PST 08:52 | PROVIDERS: PCP Internal Medicine; Visit Provider Obstetrics & Gynecology | DX: R10.2 Pelvic and perineal pain (principal); N94.89 Other specified conditions associated with female genital organs and menstrual cycle ==

== ENCOUNTER 2023-07-27 21:01 | Outpatient (REF) | payer OTHER, SELFPAY ==
--- OUTSIDE RECORDS SUMMARY | 2023-07-27 21:13 | XMS_ITS | CCD ---
Author Name Unknown Address [address] [place] [address] Organization [facility] Care Team Providers Care Superintendent [employer] Name Role Phone Lisseth Johnson Primary Care Provider TOÑO BLANC Admitting Unavailable TOÑO BLANC Attending Unavailable LISSETH JOHNSON Primary Care Unavailable TOÑO BLANC Referring Unavailable LISSETH JOHNSON Primary Care Unavailable Lisseth Johnson Primary Care Provider [phone] BRIANA RUBIO Referring Unavailable LISSETH JOHNSON Primary Care Unavailable MATTHEW LEMUS Primary Care Physician [phone] Matthew Lemus Primary Care Provider Unavailable Primary [...] Physician Bridgette Talavera MD Primary Care Provider [phone] DR MATTHEW LEMUS Primary Care Unavailable LETY ., DR PEÑA Admitting Unavailable LETY ., DR PEÑA Attending Unavailable LEYT ., DR PEÑA Consulting Unavailable ZIEBER, DR [...] Provider DO Matthew Lemus Primary Care Provider [phone] MD Matthew Leslie Emergency Provider MD Karri Kamara Admit Provider MD Karri Kamara Attending Provider Sarah Anderson Unavailable CASEY DAVIDSON Referring Unavailable BRIDGETTE LEWIS Primary Care Unavailable BRIDGETTE LEWIS Primary Care Unavailable DEREJE VALERIO Admitting Unavailable DEREJE VALERIO Attending Unavailable VINOD CLARK Attending Unavailable BRIDGETTE LEWIS Primary Care Unavailable Asaad, Imad Unavailable DO Matthew Lemus Primary Care Provider [phone] MD Lin Imad Attending Provider Rishi MARSHALL Attending Unavailable Rishi MARSHALL Attending Unavailable BRIDGETTE LEWIS Primary Care Unavailable Rishi MARSHALL Attending Unavailable BRIDGETTE LEWIS Primary Care Unavailable JORGE LAMAS Attending Unavailable MATTHEW LEMUS Referring Unavailable MATTHEW LEMUS Primary Care Unavailable CASEY DAVIDSON Attending Unavailable CASEY DAVIDSON Attending Unavailable CASEY DAVIDSON Attending Unavailable Matthew Lemus DO Primary Care Provider Asaad, Imad Admitting Unavailable Asaad, Imad Attending Unavailable PamelaMatthew victoria Primary Care Unavailable Josué Arteagaan Admitting Unavailab le Josué Arteagaan Attending Unavailab le Matthew Lemus Primary Care Unavailable Asad, Karri Admitting Unavailable Asad Karri Attending Unavailable Matthew Lemus Primary Care Unavailable Asaad, Imad Admitting Unavailable Asaad, Imad Attending Unavailable Matthew Lemus Primary Care Unavailable MATTHEW LEMUS Attending Unavailable MATTHEW LEMUS Referring Unavailable PAMELAMATTHEW VICTORIA Primary Care Unavailable Allergies Allergy Classification Reported Allergen(s) Allergy Type Date of Onset Reaction(s) Facility (14 sources) bee venom Propensity to adverse reactions to drug 5 [place], [place] (16 sources) Erythromycin; Translations: [ERYTHROMYCIN] Drug Allergy 5 Itching, Dermatitis, Rash, Other (See Comments), pain [place], [place] (20 sources) Azithromycin; Translations: [azithromycin] Drug Allergy 9 Unknown (qualifier value), Swelling, Dermatitis, Rash, pain [facility] (4 sources) Bee pollen; Translations: [bee pollen] Drug Allergy Edema (finding) [facility] (4 sources) Bee/Wasp/Ant venom; Translations: [Bee Stings] Drug allergy Unknown (qualifier value) [facility] (14 sources) lamoTRIgine; Translations: [Lamictal] Drug Allergy [place] [facility] (12 sources) lamoTRIgine; Translations: [LAMOTRIGINE] Drug Allergy 2 Swelling, Rash [facility] (1 source) Azithromycin Drug Allergy [facility] (2 sources) bee venom Drug allergy (disorder) [facility] (1 source) lamoTRIgine Drug Allergy [facility] (7 sources) lurasidone; Translations: [LURASIDONE] Drug Allergy 3 Other (See Comments) [facility] (1 source) Azithromycin; Translations: [Zithromax Z-Oscar] Drug Allergy [facility] Repository (2 sources) BEE VENOM PROTEIN (HONEY BEE); Translations: [BEE VENOM PROTEIN (HONEY BEE)] Propensity to adverse reactions to drug (disorder) 5 [facility] Repository (1 source) Azithromycin Drug Allergy 3 [facility] (1 source) lamoTRIgine Drug Allergy 3 [facility] (1 source) lurasidone Drug Allergy 3 [facility] Medications Current Medications Medication Drug Class(es) [...] Refill(s) 0 Start Date: 09/03/21 Status: Ordered amoxicillin 875 mg / clavulanate 125 mg [...] by mouth daily 0 Active busPIRone hydrochloride 15 mg oral tablet (20 sources) Start: 07-07-2023 busPIRone (BUSPAR) 15 mg tablet Start: 09-03-2021 End: 07-07-2023 take 1 tablet by mouth in the morning, then take 1 tablet by mouth at bedtime busPIRone (BUSPAR) 10 mg tablet Indications: Generalized anxiety disorder with panic attacks Take 1 tablet (10 mg total) by mouth in the morning and 1 tablet (10 mg total) before bedtime. 180 tablet 3 2023 07/07/2023 Discontinued (Dose adjustment) Start: 01-08-2021 End: 02-02-2023 take 10 mg [...] Vitamin D Cholecalciferol (VITAMIN D) 50 MCG (1999) CAPS capsule Take by mouth 0 Active clonazePAM 0.5 mg oral tablet (1 source) Benzodiazepine Start: 07-07-2023 clonazePAM (KlonoPIN) 0.5 mg tablet codeine phosphate 2 mg/ml / guaiFENesin 20 [...] by mouth once daily in the morning Drospirenone-Ethiny l Estradiol Active 1 TAB PO Every morning [...] sources) Histamine-2 Receptor Antagonist Start: 3 take 1 tablet by mouth once daily at bedtime Famotidine (Pepcid) 20 mg Tablet Active 20 MG PO Daily at bedtime February 01, 2023 11:00pm Start: 02-02-2023 take 10 mg by mouth once daily [...] 0 Start Date: 09/03/21 Status: Ordered hydrOXYzine (DNAK RAX) 10 MG tablet Take 25 mg [...] levomilnacipran 20 mg extended release oral capsule (10 sources) Serotonin and Norepinephrine Reuptake Inhibitor Start: 05-18-2023 take 1 capsule by mouth once daily Levomilnacipran (Fetzima) 20 mg capsule,extended release 24 hr Active 40 MG PO Daily May 18, 2023 1:58pm Start: 05-04-2023 End: 07-07-2023 take 1 capsule by mouth every twenty-four hours in the morning levomilnacipran (FETZIMA) 40 mg capsule,extended release 24 hr Indications: Bipolar 1 disorder (CMS-HCC) , Generalized anxiety disorder with panic attacks Take 1 capsule (40 mg total) by mouth in the morning. 30 capsule 3 05/04/2023 07/07/2023 Discontinued (Dose adjustment) Start: 02-05-2023 End: 07-07-2023 take 1 capsule by mouth every twenty-four hours in the morning FETZIMA 20 mg capsule,extended release 24 hr TAKE 1 CAPSULE (20 MG TOTAL) BY MOUTH IN THE MORNING 0 04/06/2023 07/07/2023 Discontinued (Discontinued by another clinician) Start: 02-05-2023 End: 05-18-2023 take 1 capsule by mouth once daily Levomilnacipran (Fetzima) 20 mg Capsule,Extended Release 24 Hr Discontinued 20 MG PO Daily 60 February 04, 2023 11:00pm May 18, 2023 1:58pm levonorgestrel 0.911166 mg/hr intrauterine system (1 source) Progestin, Progestin-containing Intrauterine Device Start: 06-29-2023 levonorgestreL (MIRENA) 21 mcg/24 hours (8 yrs) 52 mg IUD by intrauterine route daily. 0 06/29/2023 Active lumateperone 42 mg oral capsule (1 source) Start: 07-07-2023 CAPLYTA 42 mg capsule capsule methylPREDNISolone 4 mg oral tablet (1 source) Corticosteroid Start: 02-11-2023 Medrol 4 MG as directed Orally As Directed for 6 days 15 Jan, 2023 Active naproxen sodium 275 mg oral tablet [...] omeprazole 20 mg delayed release oral capsule (7 sources) Proton Pump Inhibitor Start: 02-02-2023 take 20 mg by mouth once daily at bedtime Omeprazole Active 20 MG PO Daily at bedtime February 01, 2023 11:00pm take 2 capsules by mouth in the morning omeprazole (PriLOSEC) 10 mg capsule Take 2 capsules (20 mg total) by mouth in the morning. 0 Active pantoprazole 40 mg delayed release oral tablet [...] days 10 tablet 0 03/13/2020 03/18/2020 Active vit37/iron/folic acid (PRENATA ORAL) (1 source) vit37/iron/folic acid (PRENATA ORAL) Take by mouth. 0 Active promethazine hydrochloride 12.5 mg oral tablet (9 sources) Phenothiazine Start: 05-09-2023 take 1 tablet by mouth every six hours as needed for nausea and vomiting promethazine (PHENERGAN) 12.5 mg tablet Take 1 tablet (12.5 mg total) by mouth every 6 (six) hours as needed for nausea or vomiting. 30 tablet 0 05/09/2023 Active Start: 12-22-2022 promethazine ( PHENERGAN) 12.5 mg suppository Indications: Nausea and vomiting, unspecified vomiting type Insert 1 suppository (12.5 mg total) into the rectum every 6 (six) hours as needed for nausea or vomiting. 12 each 0 12/22/2022 Active Start: 06-30-2022 End: 06-30-2022 promethazine (PHENERGAN) tab let 25 mg take 1 tablet by marion th every six hours as needed for nausea promethazine (PHENERGAN) 25 MG tablet Take 25 mg by mouth every 6 hours as needed for Nausea 0 Active solifenacin succinate 10 mg oral tablet (2 sources) Cholinergic Muscarinic Antagonist Solifenacin Succinate 10 MG Oral for 30 Days Active tamsulosin hydrochloride 0.4 mg oral capsule (1 source) alpha-Adrenergic Jade Start: 3 take 1 capsule by mouth once daily Flomax 0.4 mg Cap 0.4 mg = 1 cap(s), Oral, Daily, # 30 cap(s), Refills(s) 0, Pharmacy: [facility]/pharmacy #[id number], 165, cm, 12/17/21 8:42:00 EDT, Height/Length Dosing, 79, kg, 12/17/21 8:42:00 EDT, Weight Dosing Start Date: 04/28/23 Status: Ordered Vitamin D (3 sources) Start: 2 Vitamin D International_Unit, Oral, qWeek, Refills(s) 0 Start Date: 09/04/21 Status: Ordered vortioxetine 5 mg oral tablet (3 sources) Start: 2 take 1 mg by mouth once daily Trintellix 5 mg oral tablet mg tab(s), Oral, Daily, Refills(s) 0 Start Date: 09/03/21 Status: Ordered Completed/Discontinued Medications Medication Drug Class(es) Dates Sig [...] 1 capsule by mouth every four hours Cczugoshsd-Bdeeqwvpjoroo-Gjeg (Fioricet) 50-300-40 mg Capsule Discontinued 1 CAP PO Q4H February 09, 2022 11:00pm February 02, 2023 8:41pm Butalbital-APAP- Caffeine 50-300-40 MG Oral for 3 Days Active ALPRAZolam 0.25 mg oral tablet (20 sources) Benzodiazepine Start: 02-10-2022 End: 07-07-2023 take 1 tablet by mouth once daily as needed for anxiety ALPRAZolam (XANAX) 0.25 mg tablet Indications: Generalized anxiety disorder with panic attacks Take 1 tablet (0.25 mg total) by mouth daily as needed for anxiety. 15 tablet 0 05/04/2023 07/07/2023 Discontinued (Discontinued by another clinician) Start: 02-10-2022 End: 05-17-2022 take 1 tablet [...] as needed for Sleep. 0 Active amoxicillin 500 mg oral capsule (10 sources) Penicillin-class Antibacterial Start: 02-10-2022 End: 02-20-2022 take 1 capsule by mouth three times daily amoxicillin 500 mg capsule 02/10/2022 02/20/2022 take 1 capsule (500 mg) by oral route 3 times per day for 10 days amoxicillin 250 mg / omeprazole 10 mg / rifabutin 12.5 mg delayed release oral capsule (1 source) Penicillin-class Antibacterial, Rifamycin Antimycobacterial, Proton Pump Inhibitor Start: 02-02-2023 End: 07-07-2023 omeprazole-amoxic ill-rifabutin 10-250-12.5 mg capsule,IR & delay rel,biphase Daily at bedtime 0 02/02/2023 07/07/2023 Discontinued (Discontinued by another clinician) ARIPiprazole 15 mg oral tablet (20 sources) [...] procedure, # 2 tab(s), Refills(s) 0, Pharmacy: [facility]/pharmacy #[id number], 165, cm, 12/17/21 8:42:00 EDT, Height/Length [...] procedure., # 2 cap(s), Refills(s) 0, Pharmacy: [id number], 165, cm, 09/04/21 9:50:00 EDT, Height/Length [...] symptomatic., # 2 tab(s), Refills(s) 0, Pharmacy: [facility]/pharmacy #[id number], 165, cm, 12/17/21 8:42:00 EDT, Height/Length [...] Status: Ordered take 1 tablet by marion twice daily at mealtime metFORMIN (GLUCOPHAGE) 500 [...] mg) by oral route TID as needed norethindrone 0.35 mg oral tablet (1 source) Start: 09-24-19 End: 07-07-19 take 1 tablet by mouth in the morning norethindrone (MICRONOR) 0.35 mg tablet Take 1 tablet (0.35 mg total) by mouth in the morning. 28 tablet 12 09/23/2022 07/07/2023 Discontinued (Dose adjustment) ondansetron 8 mg oral tablet (20 sources) Serotonin-3 Receptor Antagonist Start: 01-28-20 End: 07-07-19 take 0.5 tablet by mouth every eight hours as needed for nausea ondansetron (ZOFRAN) 8 mg tablet Indications: Delayed gastric emptying Take 0.5 tablets (4 mg total) by mouth every 8 (eight) hours as needed for nausea or vomiting. 30 tablet 1 01/27/2023 07/07/2023 Discontinued (Ineffective) Start: 02-10-2022 End: 02-02-2023 take 1 tablet by mouth every six [...] USE QAM AND PRN TO MONITOR ASTHMA plecanatide 3 mg oral tablet (1 source) Start: 04-04-2023 End: 07-07-2023 take 1 tablet by mouth in the morning plecanatide 3 mg tablet Indications: Irritable bowel syndrome with constipation Take 3 mg by mouth in the morning. 90 tablet 1 04/04/2023 07/07/2023 Discontinued (Therapy completed) pramipexole dihydrochloride 0.5 mg oral tablet (7 [...] take 2 tablets by oral route daily propranolol hydrochloride 10 mg oral tablet (11 sources) beta-Adrenergic Jade Start: 2 End: 2 take 1 tablet by mouth three times daily propranolol 10 mg tablet 02/09/2022 05/17/2022 take 1 tablet (10 mg) by oral route 3 times per day rosuvastatin calcium 5 mg oral tablet (11 sources) HMG-CoA Reductase Inhibitor Start: 2 End: 2 take 1 tablet by mouth once daily at bedtime rosuvastatin 5 mg tablet 02/09/2022 05/17/2022 take 1 tablet (5 mg) by oral route once daily at bedtime sincalide (KINEVAC) 0.02 mcg/kg in sodium chloride 0.9 % 50 mL infusion (1 source) Start: 0 End: 0 sincalide (KINEVAC) 0.02 mcg/kg in sodium chloride 0.9 % 50 mL infusion 50 ml sodium chloride 9 mg/ml injection (2 sources) Start: 3 End: 3 0.9 % sodium chloride bolus Start: 10-11-2021 [...] Start: 02-11-2020 take 1 tablet by marion once daily topiramate (TOPAMAX) 25 MG tablet [...] by oral route once daily at bedtime ziprasidone 60 mg oral capsule (10 sources) Atypical Antipsychotic Start: 06-02-2023 End: 07-07-2023 take 1 capsule by mouth once daily at dinner ziprasidone (GEODON) 60 mg capsule Indications: Bipolar 1 disorder ([facility]) Take 1 capsule (60 mg total) by mouth daily with dinner. 30 capsule 3 06/02/2023 07/07/2023 Discontinued (Dose adjustment) Start: 05-18-2023 take 40 mg by mouth once daily Ziprasidone Hcl Active 40 MG PO Daily after supper May 18, 2023 2:02pm Start: 02-05-2023 End: 05-18-2023 take 1 capsule by mouth in the morning, then take 1 capsule by mouth at mealtime ziprasidone (GEODON) 20 mg capsule Take 1 capsule (20 mg total) by mouth in the morning and 1 capsule (20 mg total) in the evening. Take with meals. 0 02/05/2023 Active take 1 capsule by mo uth at bedtime Geodon 40 MG 1 capsule with food Orally HS Active take 1 capsule by mo uth every twelve hours Geodon 20 MG 1 capsule with food Orally Twice a day Active Problems Active Problems Problem Classification Problem Date [...] and unspecified hyperlipidemia] Onset: 02-09-2022 Chronic Endometriosis (18 sources) Endometriosis (clinical); Translations: [Endometriosis, unspecified] Onset: 02-25-2021 09-03-2021 Chronic Genitourinary symptoms and ill-defined conditions (5 sources) Urge incontinence; Translations: [Urge incontinence of urine] Onset: 09-04-2021 Chronic Headache; including migraine (20 sources) Migraine; Translations: [...] sexual mode of transmission] Onset: 12-23-2021 Episodic Joint disorders and dislocations; trauma-related (1 source) Chondromalacia of patella; Translations: [Chondromalacia patellae, unspecified knee] Onset: 04-26-2022 04-26-2022 Chronic Menstrual disorders (9 sources) Irregular menstruation, unspecified; Translations: [Amenorrhea, unspecified] Onset: 11-16-2021 Chronic Miscellaneous mental health disorders (1 source) Bulimia nervosa; Translations: [Bulimia nervosa] Onset: 11-10-2021 11-10-2021 Chronic Mood disorders (20 sources) Depressive disorder; Translations: [Bipolar disorder] Onset: 04-30-2015 04-30-2015 Chronic Mood disorders (2 sources) Mood disorders; Translations: [Depression, unspecified] Onset: 02-02-2023 07-07-2023 Nausea and vomiting (16 sources) Intractable nausea and vomiting; Translations: [Nausea] Onset: 06-17-2022 Episodic Other aftercare (1 source) Other shingle weaver (current) drug therapy; Translations: [OTH LONGTERM CURRENT DRUG THERAPY] Onset: 09-20-2022 Episodic Other [...] syndrome with constipation] Onset: 05-12-2023 Chronic Other gastrointestinal disorders (1 source) Oropharyngeal dysphagia; Translations: [Dysphagia, oropharyngeal phase] 07-07-2023 Episodic Other gastrointestinal disorders (1 source) Dysphagia, oropharyngeal phase; Translations: [Dysphagia, oropharyngeal phase] Onset: 07-07-2023 Episodic Other injuries and conditions due to external [...] upper respiratory tract infection] Episodic Personality disorders (16 sources) Borderline personality disorder; Translations: [Borderline personality disorder] Onset: 11-10-2021 11-10-2021 Chronic Residual codes; unclassified (4 sources) Hallucinations; Translations: [...] [CONTACT W/AND (SUSP) EXPOS COVID-19] Onset: 05-28-2022 Unclassified (1 source) abd recheck Onset: 07-07-2023 Unclassified (1 source) Thyroid Problem Onset: 07-07-2023 Urinary tract infections (5 sources) Cystitis; Translations: [Cystitis, unspecified without hematuria] Onset: 09-04-2021 Episodic Past or Other Problems Problem Classification Problem Date Documented Da te Episodic/Chronic Cardiac dysrhythmias (20 sources) Tachycardia; Translations: [Tachycardia, unspecified] Onset: 02-09-2022 Episodic Fluid and electrolyte disorders (7 sources) Dehydration; Translations: [DEHYDRATION] Onset: 06-18-2022 Episodic Genitourinary symptoms and ill-defined conditions (20 sources) Tenzin hematuria; Translations: [Urgent desire to urinate] Onset: 03-01-2019 Resolved: 01-25-2022 03-01-2019 Episodic Joint disorders and dislocations; trauma-related (1 source) Acute meniscal tear, medial; Translations: [Complex tear of medial meniscus, current injury, left knee, initial encounter] Onset: 04-26-2022 04-26-2022 Episodic Other complications of (4 sources) Mild [...] CYST OF LEFT OVARY] Onset: 03-24-2022 Episodic Polyhydramnios and other problems of amniotic cavity (5 sources) premature rupture of membranes, unspecified as to length of time between rupture and onset of labor, third trimester; Translations: [ premature rupture of membranes ] Onset: 09-16-2022 Episodic Residual codes; unclassified (14 sources) Insomnia; Translations: [Insomnia, unspecified] Onset: 06-24-2015 [...] CT Reporton 05-25-2023 RAD - CT Report [id number] #1.00TIFF Normal [facility] HCG ( test) IApo d Ql (U)Ordered By: Fany Ceballos on 05-19-2023 HCG ( test) Ql (U) Negative [facility] HCG,Urineon 05-19-2023 Beta HCG ( test) Ql (U) Negative Normal [facility] Comment on above: Result Comment: PERF ORMED BY: [address] [place] [address] PATHOLOGIST FELLING MACHINE OPERATOR MOISES VELASCO M.D. Performed By: #### U HCG #### [address] 05-19-2023 L Specimen: [id number] Received: 05/20/23 Status: RUDY Bassett Num: [id number] Spec Type: Surgical Subm Dr: Fany Ceballos MD Tissues: A Duodenum - Biopsy (DUODENAL BX) B Esophagus Biopsy (ESOPHAGUS BX) Procedures: MARIELOS Gross/Micro L4/2 Age/ Patient Sex Location Account Attending Physician Lulú Gaitan 28/F [id number] Fany Ceballos MD SPEC NUM: [id number] RECD: 05/20/23 STATUS: RUDY STOVERYusra NUM: [id number] PHILIP: 05/19/23- [facility] DR: Fany Ceballos MD ENTERED: 05/20/[address]: SPEC TYPE: Surgical DEPT: S ORDERED: HE, Gross/Micro L4/2 ORDERED: HE, Gross/Micro L4/2 Pathological Diagnosis A. Duodenum, Biopsy: [...] submitted in one cassette labeled B1. Specimen: [id number] Received: 05/20/23 Status: RUDY Bassett Num: [id number] Spec Type: Surgical Subm Dr: Fany Ceballos MD Tissues: A Duodenum - Biopsy (DUODENAL BX) B Esophagus Biopsy (ESOPHAGUS BX) Procedures: , Gross/Micro L4/2 Patient: Lulú Gaitan [id number] (Continued) Specimen: [id number] Received: 05/20/23 (Continued) Signed (signature on file) Cielo Trimble MD 05/24/23 2301 Specimen: [id number] Received: 05/20/23 Status: RUDY Bassett Num: [id number] Spec Type: Surgical Subm Dr: Fany Ceballos MD Tissues: A Duodenum - Biopsy (DUODENAL BX) B Esophagus Biopsy (ESOPHAGUS BX) Procedures: HE/4, Gross/Micro L4/2 Patient: Lulú Gaitan [id number] (Continued) Specimen: [id number] Received: 05/20/23 (Continued) Microscopic Description A. Two H E slides reviewed. The microscopic examination confirms the diagnosis. B. Two H E slides reviewed. The microscopic examination confirms the diagnosis. CPT Codes 33720q7 Specimen: [id number] Received: 05/20/23 Status: RUDY Danyelle Num: [id number] Spec Type: Surgical Subm Dr: Fany Ceballos MD Tissues: A Duodenum - Biopsy (DUODENAL BX) B Esophagus Biopsy (ESOPHAGUS BX) Procedures: KATELYNN/Mary Anne Augustin/Micro L4/2 Patient: Lulú Giatan [id number] (Continued) Signed (signature on file) Cielo Trimble MD 05/24/23 2301 Normal [facility] CT abdomen pelvis w conon CT abdomen pelvis w con [facility] [address] [place] [address] CT Scan Report Signed Patient: Lulú Gaitan MR#: [id number] 4 : 1995 Acct:[id number] Age/Sex: 28 / F ADM Date: 05/12/23 Loc: [facility]: [facility]: Fany Ceballos MD Copies to: [...] CLINICIAN. Impression dictated by: Samy Pham Jr., D.OAung05/12/2023 10:29 AM Dictation Location: [place] [address] Transcribed By: [facility] 05/12/23 1029 Dictated By: Samy Pham Jr, DO 05/12/23 1023 Signed By: 05/12/23 1029 [facility] Consent for Procedure/Surger yojami 05-11-2023 Consent for Procedure/Surgery [id number] 6#1.00TIFF [facility] Ambulatory Visit Summaryon 1 07-11-2022 [...] DEVLIN, Rishi Ghosh Where: [facility] Patient Educationon 12-12-20 23 Patient Education Urology Hematuria, Adult Hematuria is [...] these instructions at home: Medicines ? Take urvg-piq-qlzfvyq and prescription medicines only as told by [...] the blood stops without treatment. ? Take sxob-xef-ovnrbhn and prescription medicines only as told by your health care provider. ? Drink enough fluid to keep your urine pale yellow. This information is not intended to replace advice given to you by your health care provider. Make sure you discuss any questions you have with your health care provider. Document Revised: 01/14/2021 Document Reviewed: 01/14/2021 [employer] Patient Education ? 2022 [employer] [facility] Urology Office/Clinic Noteon 05-10-2023 Urology [...] Bactrim x 3 days empirically. went to [place] ER next day bc blood persisted. CT [...] without complications. Follow-up With When Contact Information Rishi MARSHALL MD, URL In 4 months [facility] [address], [place] [address]- Additional Instructions: w/PVR Patient Education Hematuria, Adult I, Johana De Jesus , personally scribed for Dr. Marshall on 05/10/2023 11:52:58. . Portions of this record may have been created with voice recognition artificial intelligence software, specifically [employer] and or [employer]. Substitutions may have occurred due to the [...] Daily busPIRon (more content not included)... Normal [facility] Comment on above: Result Comment: Elec tronically Signed By: Rishi MARSHALL MD\.br\Date and Time Signed: 05/10/23 11:55 EST\.br\Electronically Co-Signed By: Johana De Jesus\.br\Date and Time Co-Signed: 05/10/23 11:53 EST RAD - MISCon 04-26-2023 RAD - MISC [id number]# 1.00TIFF Normal [facility] Lab Reportson 04-15-2023 Lab Reports [id number]# 1.00TIFF Normal [facility] Operative Reporton Operative Report [id number] #1.00TIFF Normal [facility] Lab Reportson 04-08-2023 Lab Reports [id number] #1.00TIFF Normal [facility] Insurance Correspondenceon 1 05-30-2022 Insurance Correspondence [id number] 4#1.00TIFF Normal [facility] Consent for Procedure/Surger yon 03-24-2023 Consent for Procedure/Surgery [id number]#1.00TIFF Normal [facility] CT ABDOMEN PELVIS W IV CONTR Derrick [...] Jennie Hernández MD 03/11/23 Final result Normal [facility] Cult,Urineon 03-11-2023 Cult,Urine Specimen Description .CLEAN CATCH URINE Culture NO SIGNIFICANT GROWTH Report Status FINAL 03/11/2023 Normal [facility] Comment on above: Performed By: #### U RC #### [address] [place], [place] [id number] Professor In Family Studies: Omar Segundo MD [address] [place] [id number] Professor In Family Studies: Cholo Alicea MD CBC with Diffon 03-10-2023 Abs. Basophil 0.05 k/uL Normal 0.00-0.20 [facility] Comment on above: Performed By: #### C ALEXA CP, CK #### [address] [place] [id number] Professor In Family Studies: Cholo Alicea MD Abs.Imm.Granulocyte <0.03 Normal 0.00-0.30 [facility] Comment on above: Performed By: #### C ALEXA CP, CK #### [address] [place] [address] Professor In Family Studies: Cholo Alicea MD Abs.Neutrophil (Seg) 3.36 k/uL Normal 1.50-8.10 [facility] Comment on above: Performed By: #### C ALEXA CP, CK #### [address] [place] [id number] Professor In Family Studies: Cholo Alicea MD Basophils/100 WBC (Bld) 1 % Normal 0-2 M [facility] Comment on above: Performed By: #### C DP CP, CK #### [facility] [address] [place], [place] 5894383 Professor In Family Studies: Cholo Alicea MD Eosinophils (Bld) [#/Vol] 0.05 10*3/uL Normal 0.00-0.44 [facility] Comment on above: Performed By: #### C DP, CP, CK #### [address] [place], [facility]83 Professor In Family Studies: Cholo Alicea MD Eosinophils/100 WBC (Bld) 1 % Normal 1-4 [facility] Comment on above: Performed By: #### C DP, CP, CK #### [address] [place], [facility]83 Professor In Family Studies: Cholo Alicea MD Erythrocyte distribution width (RBC) [Ratio] 11.9 % Normal 11.8-14.4 [facility] Comment on above: Performed By: #### C DP, CP, CK #### [address] [place], [facility]83 Professor In Family Studies: Cholo Alicea MD Hematocrit (Bld) [Volume fraction] 37.5 % Normal 36.3-47.1 [facility] Comment on above: Performed By: #### C DP, CP, CK #### [address] [place], [facility]83 Professor In Family Studies: Cholo Alicea MD Hemoglobin (Bld) [Mass/Vol] 12.9 g/dL Normal 11.9-15.1 [facility] Comment on above: Performed By: #### C DP, CP, CK #### [address] [place], [facility]83 Professor In Family Studies: Cholo Alicea MD Immature granulocytes/100 WBC (Bld) 0 % Normal 0 [facility] Comment on above: Performed By: #### C DP, CP, CK #### [address] [place], [facility]83 Professor In Family Studies: Cholo Alicea MD Lymphocytes (Bld) [#/Vol] 2.79 10*3/uL Normal 1.10-3.70 [facility] Comment on above: Performed By: #### C ALEXA CP, CK #### [facility] [address] [place] [address] Dr[place], [place] [address] Professor In Family Studies: Cholo Alicea MD Lymphocytes/100 WBC (Bld) 42 % Normal 24-43 [facility] Comment on above: Performed By: #### C ANTONIA LIU, CK #### [address] [place], [place] [address] Professor In Family Studies: Cholo Alicea MD MCH (RBC) [Entitic mass] 30.4 pg Normal 25.2-33.5 [facility] Comment on above: Performed By: #### C ANTONIA LIU, CK #### [address] [place], [place] [address] Professor In Family Studies: Cholo Alicea MD MCHC (RBC) [Mass/Vol] 34.4 g/dL Normal 28.4-34.8 [facility] Comment on above: Performed By: #### C ANTONIA LIU, CK #### [address] [place] [address] Professor In Family Studies: Cholo Alicea MD MCV (RBC) [Entitic vol] 88.2 fL Normal 82.6-102.9 M [facility] Comment on above: Performed By: #### C ANTONIA LIU, CK #### [address] [place], [facility]83 Professor In Family Studies: Cholo Alicea MD Monocytes (Bld) [#/Vol] 0.46 10*3/uL Normal 0.10-1.20 [facility] Comment on above: Performed By: #### C ALEXA CP, CK #### [address] [place] [facility]83 Professor In Family Studies: Cholo Alicea MD Monocytes/100 WBC (Bld) 7 % Normal 3-12 M [facility] Comment on above: Performed By: #### C ANTONIA LIU, CK #### [facility] [address] [place], [place] 9[address]83 Professor In Family Studies: Cholo Alicea MD Neutrophil (Seg) 49 % Normal 36-65 [facility] Comment on above: Performed By: #### C ANTONIA LIU, CK #### [facility] [address] [place], [place] 9130783 Professor In Family Studies: Cholo Alicea MD NRBC Automated 0.0 per 100 WBC Normal 0.0 [facility] Comment on above: Performed By: #### C ANTONIA LIU, CK #### [facility] [address] [place], [place] 6183583 Professor In Family Studies: Cholo Alicea MD Platelet mean volume (Bld) [Entitic vol] 10.5 fL Normal 8.1-13.5 [facility] Comment on above: Performed By: #### C ANTONIA LIU, CK #### [address] [place], [place] 0479783 Professor In Family Studies: Cholo Alicea MD Platelets (Bld) [#/Vol] 320 10*3/uL Normal 138-453 [facility] Comment on above: Performed By: #### C ANTONIA LIU, CK #### [address] [place], [place] 0700083 Professor In Family Studies: Cholo Alicea MD RBC (Bld) [#/Vol] 4.25 10*6/uL Normal 3.95-5.11 [facility] Comment on above: Performed By: #### C ANTONIA LIU, CK #### [facility] [address] [place], [place] 9859883 Professor In Family Studies: Cholo Alicea MD WBC (Bld) [#/Vol] 6.7 10*3/uL Normal 3.5-11.3 [facility] Comment on above: Performed By: #### C DP, CP, CK #### [facility] [address] [place], [place] 9495283 Professor In Family Studies: Cholo Alicea MD Comp Metabolic Profon 2022 Albumin [Mass/Vol] 4.6 g/dL Normal 3.5-5.2 [facility] Comment on above: Performed By: #### C DP, CP, CK #### [facility] [address] [place], [place] 6789[address] Professor In Family Studies: Cholo Alicea MD Albumin/Glob Ratio 1.5 Normal 1.0-2.5 [facility] Comment on above: Performed By: #### C DP, CP, CK #### [address] [place], [place] 9003083 Professor In Family Studies: Cholo Alicea MD Alkaline Phos 72 U/L Normal 35-104 [facility] Comment on above: Performed By: #### C ALEXA, CP, CK #### [address] [place], [place] 5230783 Professor In Family Studies: Cholo Alicea MD ALT [Catalytic activity/Vol] 42 U/L High 5-33 [facility] Comment on above: Performed By: #### C DP, CP, CK #### [facility] [address] [place] [address] Dr. [place], [place] 7300483 Professor In Family Studies: Cholo Alicea MD Anion gap [Moles/Vol] 11 mmol/L Normal 9-17 [facility] Comment on above: Performed By: #### C DP, CP, CK #### [facility] [address] [place], [place] 3133083 Professor In Family Studies: Cholo Alicea MD AST [Catalytic activity/Vol] 31 U/L Normal <32 [facility] Comment on above: Performed By: #### C DP, CP, CK #### [facility] [address] [place], [place] 0860783 Professor In Family Studies: Cholo Alicea MD Bilirubin [Mass/Vol] 0.4 mg/dL Normal 0.3-1.2 [facility] Comment on above: Performed By: #### C DP, CP, CK #### [facility] [address] [place] [address] Professor In Family Studies: Cholo Alicea MD BUN/CRE Ratio 10 Normal 9-20 [facility] Comment on above: Performed By: #### C DP, CP, CK #### [address] [place], [place] 366[address]183 Professor In Family Studies: Cholo Alicea MD Calcium [Mass/Vol] 10.4 mg/dL Normal 8.6-10.4 [facility] Comment on above: Performed By: #### C DP, CP, CK #### [facility] [address] [place] [address] [place] [address] Professor In Family Studies: Cholo Alicea MD Chloride [Moles/Vol] 101 mmol/L Normal 98-107 [facility] Comment on above: Performed By: #### C DP, CP, CK #### [address] [place], [place] 1543083 Professor In Family Studies: Cholo Alicea MD CO2 [Moles/Vol] 26 mmol/L Normal 20-31 [facility] Comment on above: Performed By: #### C DP, CP, CK #### [facility] [address] [place], [place] 3019983 Professor In Family Studies: Cholo Alicea MD Creatinine [Mass/Vol] 0.9 mg/dL Normal 0.5-0.9 [facility] Comment on above: Performed By: #### C DP, CP, CK #### [facility] [address] [place] [address] Professor In Family Studies: Cholo Alicea MD GFR/1.73 sq M.predicted among non-blacks MDRD (S/P/Bld) [Vol rate/Area] mL/min/{1.73_m2} Normal >60 [facility] Comment on above: Result Comment: These [...] By: #### C ANTONIA LIU, CK #### [address] [place] [address] Professor In Family Studies: Cholo Alicea MD Glucose [Mass/Vol] 97 mg/dL Normal 70-99 [facility] Comment on above: Performed By: #### C ALEXA CP, CK #### [address] [place] [address] Professor In Family Studies: Cholo Alicea MD Potassium [Moles/Vol] 4.2 mmol/L Normal 3.7-5.3 [facility] Comment on above: Performed By: #### C ALEXA CP, CK #### [address] [place] [address] Professor In Family Studies: Cholo Alicea MD Protein [Mass/Vol] 7.6 g/dL Normal 6.4-8.3 [facility] Comment on above: Performed By: #### C ALEXA CP, CK #### [address] [place] [address] Professor In Family Studies: Cholo Alicea MD Sodium [Moles/Vol] 138 mmol/L Normal 135-144 [facility] Comment on above: Performed By: #### C ALEXA CP, CK #### [address] [place] [address] Professor In Family Studies: Cholo Alicea MD Urea nitrogen [Mass/Vol] 9 mg/dL Normal 6-20 [facility] Comment on above: Performed By: #### C DP, CP, CK #### [facility] [address] [place] [address] Professor In Family Studies: Cholo Alicea MD Creatine Kinaseon 4 CK [Catalytic activity/Vol] 51 U/L Normal 26-192 [facility] Comment on above: Performed By: #### C DP, CP, CK #### [facility] [address] [place] [address] Professor In Family Studies: Cholo Alicea MD HCG, ,Urineon 03-107 Beta HCG ( test) Ql (U) Negative Normal NEG [facility] Comment on above: Result Comment: Spec imens with hCG levels near the threshold of the test (25 mIU/mL) may give a negative or indeterminate result. In such cases, another test should be performed with a new specimen in 48-72 hours. If early is suspected clinically in this setting, correlation with quantitative serum b-hCG level is suggested. [facility] has confirmed the use of plasma for this test. This has not been cleared or approved by the U.S. Food and Drug Administration. The FDA has determined that such clearance is not necessary. Performed By: #### U HCG, UAMIC #### [facility] [address] [place] [address] Professor In Family Studies: Cholo Alicea MD Urinalysis w/ Microon 1 Bacteria TRACE Abnormal NONE [facility] Comment on above: Performed By: #### L IP, CDP, CP #### [facility] [address] [place] [address] Professor In Family Studies: Cholo Alicea MD Bilirubin, SemiQt,Ur Negative Normal NEG [facility] Comment on above: Performed By: #### L IP, CDP, CP #### [facility] [address] [place] [address] Dr[place], [place] 0736683 Professor In Family Studies: Cholo Alicea MD Blood, Urine Negative Normal NEG [facility] Comment on above: Performed By: #### L IP, CDP, CP #### [facility] [address] [place] [address] Dr[place], [place] 8146883 Professor In Family Studies: Cholo Alicea MD Clarity (U) Clear Normal CLEAR [facility] Comment on above: Performed By: #### L IP, CDP, CP #### [facility] [address] [place] [address] Dr[place], [place] 3058983 Professor In Family Studies: Cholo Alicea MD Color (U) Yellow Normal YEL [facility] Comment on above: Performed By: #### L IP, CDP, CP #### [address] [place], [place] 0753883 Professor In Family Studies: Cholo Alicea MD Epithelial cells LM Ql (Urine sed) 0 TO 2 Normal 0-25 [facility] Comment on above: Performed By: #### L IP, CDP, CP #### [address] [place], [place] 5743383 Professor In Family Studies: Cholo Alicea MD Glucose Ql (U) Negative Normal NEG [facility] Comment on above: Performed By: #### L IP, CDP, CP #### [facility] [address] [place] [address] Dr[place], [place] 1841283 Professor In Family Studies: Cholo Alicea MD Ketones Ql (U) Negative Normal NEG [facility] Comment on above: Performed By: #### L IP, CDP, CP #### [facility] [address] [place] [address] Dr. [place], [place] 6525183 Professor In Family Studies: Cholo Alicea MD Leukocyte esterase Test strip Ql (U) Negative Normal NEG [facility] Comment on above: Performed By: #### L IP, CDP, CP #### [address] [place], [place] 7922083 Professor In Family Studies: Cholo Alicea MD Nitrite,Ur Negative Normal NEG [facility] Comment on above: Performed By: #### L IP, CDP, CP #### [address] [place], [place] 3922483 Professor In Family Studies: Cholo Alicea MD PH,Ur 7.5 Normal 5.0-9.0 [facility] Comment on above: Performed By: #### L IP, CDP, CP #### [address] [place], [place] 7623183 Professor In Family Studies: Cholo Alicea MD Protein Ql (U) Negative Normal NEG [facility] Comment on above: Performed By: #### L IP, CDP, CP #### [address] [place] 5682783 Professor In Family Studies: Cholo Alicea MD Spec. [place],Ur 1.010 Normal 1.010-1.020 [facility] Comment on above: Performed By: #### L IP, CDP, CP #### [address] [place], [place] 9028483 Professor In Family Studies: Cholo Alicea MD Urine RBC's None Normal 0-2 [facility] Comment on above: Performed By: #### L IP, CDP, CP #### [address] [place], [place] 9666383 Professor In Family Studies: Cholo Alicea MD Urine WBC's 0 TO 2 Normal 0-5 [facility] Comment on above: Performed By: #### L IP, CDP, CP #### [address] [place], [place] 9914883 Professor In Family Studies: Cholo Alicea MD Urobilinogen,Ur Normal Normal 0.0-1.0 [facility] Comment on above: Performed By: #### L IP, CDP, CP #### [address] [place] [address] Professor In Family Studies: Cholo Alicea MD COVID + FLU Quick Testingon 02-11-2023 SARS-CoV-2 (COVID-19) RNA ALEKSANDER+probe Ql (Unsp spec) Negative [facility] Other COVID + FLU Quick Testing Negative [facility] Other Quick Strepon 02-11-2023 S. pyogenes Org specific cx Ql (Throat) Negative [facility] Shared Performance Other Quick Strep [facility] Other CNPNon 02-03-2023 CNPN Telephone (GASTSP) LULÚ GAITAN ([id number]) 1995 F Date Time Provider Department 02/03/23 CHRISTINE MCAIAS [facility] During your visit today, we recorded the [...] list full name of hospital or facility)? [facility] If the patient had a gastric [...] G/J Tube?No Preferred phone number for contact: [phone] ? Viviana David 02/03/2023 3:38 PM Signed [...] Status:Closed by VIVIANA DAVID on 02/04/23 Normal [facility] ECG 12 lead ECGon 02-03-2023 ECG 12 lead ECG [facility] [address] Electrocardiograph Report Signed Patient: Lulú Gaitan MR#: [id number] 4 : 1995 Acct:[id number] Age/Sex: 27 / F ADM Date: 02/02/23 Loc: Room: [address] [place] [address] Type: ADM IN Attending Dr: Karri Kamara [...] Charles Mauro MD 0 02/04/23 1319 Normal [facility] Alanine aminotransferase [En zymatic activity/volume] in Serum or PlasmaOrdered By: Matthew Leslie on 02-02-2023 ALT [Catalytic activity/Vol] 38 U/L 752 [facility] Albumin [Mass/volume] in Ser um or Plasma by Bromocresol green (BCG) dye binding methoOrdered By: Matthew Leslie on 02-02-2023 Albumin BCG dye [Mass/Vol] 4.6 g/dL 3.5-5.7 [facility] Alkaline phosphatase [Enzyma tic activity/volume] in Serum or PlasmaOrdered By: Matthew Leslie on 02-02-2023 ALP [Catalytic activity/Vol] 54 U/L 34-104 [facility] Amphetamine Screen Ql (U)Ord ered By: Matthew Leslie on 02-02-2023 Amphetamines Ql (U) Negative Negative [facility] Aspartate aminotransferase [ Enzymatic activity/volume] in Serum or PlasmaOrdered By: Matthew Leslie on 02-02-2023 AST [Catalytic activity/Vol] 32 U/L 13-39 [facility] Automated erythrocytes count in urine sediment (number/area)Ordered By: Matthew Leslie on 02-02-2023 RBC Auto (Urine sed) [#/Area] 10-19 [HPF] 0-4 [facility] Automated leukocytes count i n urine sediment (number/area)Ordered By: Matthew Lesile on 02-02-2023 WBC Auto (Urine sed) [#/Area] 10-19 [HPF] 0-4 [facility] Automated urine hyaline cast s count (number/volume)Ordered By: Matthew Leslie on 02-02-2023 Hyaline casts Auto (U) [#/Vol] 0-1 [LPF] 0-1 [facility] Barbiturates [Presence] in U rine by Screen methodOrdered By: Matthew Leslie on 02-02-2023 Barbiturates Screen Ql (U) Negative Negative [facility] Basophils Auto (Bld) [#/Vol] Ordered By: Matthew Leslie on 02-02-2023 Basophils (Bld) [#/Vol] 0.1 10*3/uL 0.0-0.2 [facility] Basophils/100 WBC Auto (Bld) Ordered By: Matthew Leslie on 02-02-2023 Basophils/100 WBC (Bld) 0.9 % . [facility] Benzodiazepines Screen Ql (U )Ordered By: Matthew Leslie on 02-02-2023 Benzodiazepines Ql (U) Negative Negative [facility] Benzoylecgonine [Presence] i n Urine by Screen methodOrdered By: Matthew Leslie on 02-02-2023 Benzoylecgonine Screen Ql (U) Negative Negative [facility] Bilirubin Test strip Ql (U)O rdered By: Matthew Leslie on 02-02-2023 Bilirubin Ql (U) Negative Negative [facility] Bilirubin.direct [Mass/volum e] in Serum or PlasmaOrdered By: Matthew Leslie on 02-02-2023 Bilirubin.direct [Mass/Vol] 0.10 mg/dL 0.03-0.18 [facility] Bilirubin.total [Mass/volume ] in Serum or PlasmaOrdered By: Matthew Leslie on 02-02-2023 Bilirubin [Mass/Vol] 0.6 mg/dL 0.3-1.0 [facility] Calcium [Mass/volume] in Ser um or PlasmaOrdered By: Matthew Leslie on 02-02-2023 Calcium [Mass/Vol] 9.5 mg/dL 8.6-10.3 [facility] Cannabinoids [Presence] in U rine by Screen methodOrdered By: Matthew Leslie on 02-02-2023 Cannabinoids Screen Ql (U) Negative Negative [facility] Comment on above: These are unconfirme d results and should not be used for legal purposes. Drug Cut-Off Concentration: AMPH 1000 ng/mL PONCHO 200 ng/mL KRISTAN 200 ng/mL COCM 300 ng/mL OP 300 ng/mL PCP 25 ng/mL THC 20 ng/mL Carbon dioxide, total [Moles /volume] in Serum or PlasmaOrdered By: Matthew Leslie on 02-02-2023 CO2 [Moles/Vol] 28.3 mmol/L 21.0-31.0 [facility] Casts typing in urine sedime nt by light microscopyOrdered By: Matthew Leslie on 02-02-2023 Casts LM Nom (Urine sed) None seen [LPF] None Seen [facility] Chloride [Moles/volume] in S barbra or PlasmaOrdered By: Matthew Leslie on 02-02-2023 Chloride [Moles/Vol] 107 mmol/L 98-107 [facility] Color Auto (U)Ordered By: Mariela Leslie on 02-02-2023 Color (U) Yellow Yellow [facility] Complete Blood Count Auto Di ffon 02-02-2023 Basophils (Bld) [#/Vol] 0.1 10*3/uL Normal 0.0-0.2 [facility] Comment on above: Result Comment: PERF ORMED BY: [place] [address] PATHOLOGIST FELLING MACHINE OPERATOR MOISES VELASCO M.D. Performed By: #### E TANYA, HEPATIC, TSH3 wRFLX, CBC, CMP, [id number] #### [facility] [address] [place] [address] Basophils/100 WBC (Bld) 0.9 % Normal . [facility] Comment on above: Performed By: #### E TANYA, HEPATIC, TSH3 wRFLX, CBC, CMP, [id number] #### [facility] [address] [place] [address] [place] Eosinophils (Bld) [#/Vol] 0.0 10*3/uL Normal 0.0-0.45 [facility] Comment on above: Performed By: #### E TANYA, HEPATIC, TSH3 wRFLX, CBC, CMP, [id number] #### [facility] [address] [place] [address] [place] Eosinophils/100 WBC (Bld) 0.4 % Normal . [facility] Comment on above: Performed By: #### E TANYA, HEPATIC, TSH3 wRFLX, CBC, CMP, [id number] #### [facility] [address] [place] [address] Erythrocyte distribution width (RBC) [Ratio] 12.9 % Normal 11.9-15.3 [facility] Comment on above: Performed By: #### E TANYA, HEPATIC, TSH3 wRFLX, CBC, CMP, [id number] #### [address] Hematocrit (Bld) [Volume fraction] 41.1 % Normal 34.0-46.4 [facility] Comment on above: Performed By: #### E TANYA, HEPATIC, TSH3 wRFLX, CBC, CMP, [id number] #### [address] Hemoglobin (Bld) [Mass/Vol] 13.8 g/dL Normal 11.8-15.4 [facility] Comment on above: Performed By: #### E TANYA, HEPATIC, TSH3 wRFLX, CBC, CMP, [id number] #### [address] Lymphocytes (Bld) [#/Vol] 2.7 10*3/uL Normal 1.00-4.8 [facility] Comment on above: Performed By: #### E TANYA, HEPATIC, TSH3 wRFLX, CBC, CMP, [id number] #### [address] Lymphocytes/100 WBC (Bld) 36.0 % Normal . [facility] Comment on above: Performed By: #### E TANYA, HEPATIC, TSH3 wRFLX, CBC, CMP, [id number] #### [address] MCH (RBC) [Entitic mass] 29.4 pg Normal 24.7-34.3 [facility] Comment on above: Performed By: #### E TANYA, HEPATIC, TSH3 wRFLX, CBC, CMP, [id number] #### [address] MCV (RBC) [Entitic vol] 87.6 fL Normal 80-100 [facility] Comment on above: Performed By: #### E TANYA, HEPATIC, TSH3 wRFLX, CBC, CMP, [id number] #### [address] Mean Corpuscular HGB Conc 33.6 g/dL Normal 32.0-35.0 [facility] Comment on above: Performed By: #### E TANYA, HEPATIC, TSH3 wRFLX, CBC, CMP, [id number] #### [place] [address] [place] Monocytes (Bld) [#/Vol] 0.6 10*3/uL Normal 0.0-0.8 [facility] Comment on above: Performed By: #### E TANYA, HEPATIC, TSH3 wRFLX, CBC, CMP, [id number] #### [place] [address] [place] Monocytes/100 WBC (Bld) 17.83 % Normal 0.00-20.00 [facility] Comment on above: Performed By: #### E TANYA, HEPATIC, TSH3 wRFLX, CBC, CMP, [id number] #### [place] [address] [place] Monocytes/100 WBC (Bld) 7.9 % Normal . [facility] Comment on above: Performed By: #### E TANYA, HEPATIC, TSH3 wRFLX, CBC, CMP, [id number] #### [place] [address] [place] Neutrophils (Bld) [#/Vol] 4.2 10*3/uL Normal 1.8-7.7 [facility] Comment on above: Performed By: #### E TANYA, HEPATIC, TSH3 wRFLX, CBC, CMP, [id number] #### [place] [address] [place] Neutrophils/100 WBC (Bld) 54.8 % Normal . [facility] Comment on above: Performed By: #### E TANYA, HEPATIC, TSH3 wRFLX, CBC, CMP, [id number] #### [address] NRBC% 0.0 /100{WBC} Normal 0-0.5 [facility] Comment on above: Performed By: #### E TANYA, HEPATIC, TSH3 wRFLX, CBC, CMP, [id number] #### [address] Platelet mean volume (Bld) [Entitic vol] 9.2 fL Normal 6.3-10.7 [facility] Comment on above: Performed By: #### E TANYA, HEPATIC, TSH3 wRFLX, CBC, CMP, [id number] #### [address] Platelets (Bld) [#/Vol] 322 10*3/uL Normal 150-450 [facility] Comment on above: Performed By: #### E TANYA, HEPATIC, TSH3 wRFLX, CBC, CMP, [id number] #### [address] RBC (Bld) [#/Vol] 4.70 10*6/uL Normal 3.60-5.00 [facility] Comment on above: Performed By: #### E TANYA, HEPATIC, TSH3 wRFLX, CBC, CMP, [id number] #### [address] WBC (Bld) [#/Vol] 7.6 10*3/uL Normal 3.8-11.6 [facility] Comment on above: Performed By: #### E TANYA, HEPATIC, TSH3 wRFLX, CBC, CMP, [id number] #### [address] Comprehensive Metabolic Pane akbar 02-02-2023 Albumin [Mass/Vol] 4.6 g/dL Normal 3.5-5.7 [facility] Comment on above: Performed By: #### U HCG, ADDONUAPLUS, URDS, CUU #### [facility] [address] [place] [address] Albumin/Globulin [Mass ratio] 1.4 {ratio} Normal [facility] Comment on above: Performed By: #### U HCG, ADDONUAPLUS, URDS, CUU #### [facility] [address] [place] [address] ALP [Catalytic activity/Vol] 54 U/L Normal 34-104 [facility] Comment on above: Performed By: #### U HCG, ADDONUAPLUS, URDS, CUU #### [facility] [address] [place] [address] ALT [Catalytic activity/Vol] 38 U/L Normal 7-52 [facility] Comment on above: Performed By: #### U HCG, ADDONUAPLUS, URDS, CUU #### [facility] [address] [place] [address] Anion gap [Moles/Vol] 9.5 mmol/L Normal 6.0-15.0 [facility] Comment on above: Performed By: #### U HCG, ADDONUAPLUS, URDS, CUU #### [facility] [address] [place] [address] AST [Catalytic activity/Vol] 32 U/L Normal 13-39 [facility] Comment on above: Performed By: #### U HCG, ADDONUAPLUS, URDS, CUU #### [facility] [address] [place] [address] Bilirubin [Mass/Vol] 0.6 mg/dL Normal 0.3-1.0 [facility] Comment on above: Performed By: #### U HCG, ADDONUAPLUS, URDS, CUU #### [facility] [address] [place] [address] Calcium [Mass/Vol] 9.5 mg/dL Normal 8.6-10.3 [facility] Comment on above: Performed By: #### U HCG, ADDONUAPLUS, URDS, CUU #### [address] [place] [address] [place] Chloride [Moles/Vol] 107 mmol/L Normal 98-107 [facility] Comment on above: Performed By: #### U HCG, ADDONUAPLUS, URDS, CUU #### [facility] [address] CO2 [Moles/Vol] 28.3 mmol/L Normal 21.0-31.0 [facility] Comment on above: Performed By: #### U HCG, ADDONUAPLUS, URDS, CUU #### [facility] [address] [place] [address] [place] Creatinine [Mass/Vol] 1.14 mg/dL Normal 0.60-1.20 [facility] Comment on above: Performed By: #### U HCG, ADDONUAPLUS, URDS, CUU #### [facility] [address] [place] [address] [place] Creatinine Clr Calc Pharmacy 76.05 Normal [facility] Comment on above: Result Comment: PERF ORMED BY: [place] [address] PATHOLOGIST FELLING MACHINE OPERATOR MOISES VELASCO M.D. Performed By: #### U HCG, ADDONUAPLUS, URDS, CUU #### [facility] [address] [place] [address] [place] GFR/1.73 sq M.predicted MDRD (S/P/Bld) [Vol rate/Area] mL/min/{1.73_m2} Normal [facility] Comment on above: Performed By: #### U HCG, ADDONUAPLUS, URDS, CUU #### [facility] [address] [place] [address] [place] Globulin (S) [Mass/Vol] 3.2 g/dL Normal [facility] Comment on above: Performed By: #### U HCG, ADDONUAPLUS, URDS, CUU #### [facility] [address] [place] [address] [place] Glucose [Mass/Vol] 98 mg/dL Normal 70-100 [facility] Comment on above: Result Comment: Ronceverte om Glucose Reference Range is dependent on time and content of last meal. Glucose of more than 200 mg/dL in a nonstressed, ambulatory subject supports the diagnosis of Diabetes Mellitus. ADA recommended reference range Performed By: #### U HCG, ADDONUAPLUS, URDS, CUU #### [facility] [address] [place] [address] Potassium [Moles/Vol] 3.8 mmol/L Normal 3.5-5.1 [facility] Comment on above: Performed By: #### U HCG, ADDONUAPLUS, URDS, CUU #### [address] Protein [Mass/Vol] 7.8 g/dL Normal 6.4-8.9 [facility] Comment on above: Performed By: #### U HCG, ADDONUAPLUS, URDS, CUU #### [address] Sodium [Moles/Vol] 141 mmol/L Normal 136-145 [facility] Comment on above: Performed By: #### U HCG, ADDONUAPLUS, URDS, CUU #### [facility] [address] [place] [address] Urea nitrogen [Mass/Vol] 11 mg/dL Normal 7-25 [facility] Comment on above: Performed By: #### U HCG, ADDONUAPLUS, URDS, CUU #### [address] Creatinine [Mass/volume] in Serum or PlasmaOrdered By: Matthew Leslie on 02-02-2023 Creatinine [Mass/Vol] 1.14 mg/dL 0.60-1.20 [facility] Dipstick and Microscopicon 0 02-02-2023 Appearance (U) Cloudy Critically abnormal Clear [facility] Comment on above: Order Comment: Name Collection Type:: Clean-Voided Midstream Performed By: #### U HCG, ADDONUAPLUS, URDS, CUU #### [place] [address] [place] Bacteria,Urine 1+ High None Seen [facility] Comment on above: Order Comment: Name Collection Type:: Clean-Voided Midstream Performed By: #### U HCG, ADDONUAPLUS, URDS, CUU #### [facility] [address] [place] [address] [place] Bilirubin,Urine Negative Normal Negative [facility] Comment on above: Order Comment: Name Collection Type:: Clean-Voided Midstream Performed By: #### U HCG, ADDONUAPLUS, URDS, CUU #### [facility] [address] [place] [address] [place] Color (U) Yellow Normal Yellow [facility] Comment on above: Order Comment: Name Collection Type:: Clean-Voided Midstream Performed By: #### U HCG, ADDONUAPLUS, URDS, CUU #### [facility] [address] [place] [address] Glucose Ql (U) Normal Normal Normal [facility] Comment on above: Order Comment: Name Collection Type:: Clean-Voided Midstream Performed By: #### U HCG, ADDONUAPLUS, URDS, CUU #### [facility] [address] [place] [address] [place] Hyaline Casts,Urine 0-1 Normal 0-1 [facility] Comment on above: Order Comment: Name Collection Type:: Clean-Voided Midstream Performed By: #### U HCG, ADDONUAPLUS, URDS, CUU #### [facility] [address] [place] [address] [place] Ketones Ql (U) 2+ High Negative [facility] Comment on above: Order Comment: Name Collection Type:: Clean-Voided Midstream Performed By: #### U HCG, ADDONUAPLUS, URDS, CUU #### [facility] [address] [place] [address] [place] Leukocyte esterase Test strip Ql (U) 2+ High Negative [facility] Comment on above: Order Comment: Name Collection Type:: Clean-Voided Midstream Performed By: #### U HCG, ADDONUAPLUS, URDS, CUU #### [facility] [address] [place] [address] [place] Nitrite,Urine Negative Normal Negative [facility] Comment on above: Order Comment: Name Collection Type:: Clean-Voided Midstream Performed By: #### U HCG, ADDONUAPLUS, URDS, CUU #### [address] Occult Blood,Urine 3+ High Negative [facility] Comment on above: Order Comment: Name Collection Type:: Clean-Voided Midstream Performed By: #### U HCG, ADDONUAPLUS, URDS, CUU #### [facility] [address] [place] [address] Other Casts,Urine None Seen Normal None Seen [facility] Comment on above: Order Comment: Name Collection Type:: Clean-Voided Midstream Performed By: #### U HCG, ADDONUAPLUS, URDS, CUU #### [facility] [address] [place] [address] pH (U) 6.0 [pH] Normal 5.0-9.0 [facility] Comment on above: Order Comment: Name Collection Type:: Clean-Voided Midstream Performed By: #### U HCG, ADDONUAPLUS, URDS, CUU #### [facility] [address] [place] [address] Protein (U) [Mass/Vol] 30 mg/dL High Negative [facility] Comment on above: Order Comment: Name Collection Type:: Clean-Voided Midstream Performed By: #### U HCG, ADDONUAPLUS, URDS, CUU #### [facility] [address] [place] [address] [place] RBC,Urine 10-19 High 0-4 [facility] Comment on above: Order Comment: Name Collection Type:: Clean-Voided Midstream Performed By: #### U HCG, ADDONUAPLUS, URDS, CUU #### [facility] [address] [place] [address] Specificy [place],Urine 1.027 Normal 1.001-1.030 [facility] Comment on above: Order Comment: Name Collection Type:: Clean-Voided Midstream Performed By: #### U HCG, ADDONUAPLUS, URDS, CUU #### [facility] [address] [place] [address] [place] Squamous Epithelial Cell,Urine 3-4 High 0-2 [facility] Comment on above: Order Comment: Name Collection Type:: Clean-Voided Midstream Performed By: #### U HCG, ADDONUAPLUS, URDS, CUU #### [facility] [address] [place] [address] Urobilinogen,Urine Normal Normal Normal [facility] Comment on above: Order Comment: Name Collection Type:: Clean-Voided Midstream Performed By: #### U HCG, ADDONUAPLUS, URDS, CUU #### [facility] [address] [place] [address] WBC,Urine 10-19 High 0-4 [facility] Comment on above: Order Comment: Name Collection Type:: Clean-Voided Midstream Performed By: #### U HCG, ADDONUAPLUS, URDS, CUU #### [facility] [address] [place] [address] Yeast,Urine None Seen Normal None Seen [facility] Comment on above: Order Comment: Name Collection Type:: Clean-Voided Midstream Performed By: #### U HCG, ADDONUAPLUS, URDS, CUU #### [facility] [address] [place] [address] Drug Screen,Urineon 02-03-20 Amphetamine Screen,Urine Negative Normal Negative [facility] Comment on above: Performed By: #### U HCG, ADDONUAPLUS, URDS, CUU #### [facility] [address] [place] [address] Barbiturate Screen,Urine Negative Normal Negative [facility] Comment on above: Performed By: #### U HCG, ADDONUAPLUS, URDS, CUU #### [facility] [address] [place] [address] Benzodiazepines Screen,Urine Negative Normal Negative [facility] Comment on above: Performed By: #### U HCG, ADDONUAPLUS, URDS, CUU #### [facility] [address] [place] [address] Cannabinoid Screen,Urine Negative Normal Negative [facility] Comment on above: Result Comment: Thes e are unconfirmed results and should not be used for legal purposes. Drug Cut-Off Concentration: AMPH 1000 ng/mL PONCHO 200 ng/mL KRISTAN 200 ng/mL COCM 300 ng/mL OP 300 ng/mL PCP 25 ng/mL THC 20 ng/mL PERFORMED BY: [place] [address] PATHOLOGIST FELLING MACHINE OPERATOR MOISES VELASCO M.D. Performed By: #### U HCG, ADDONUAPLUS, URDS, CUU #### [address] Cocaine Screen,Urine Negative Normal Negative [facility] Comment on above: Performed By: #### U HCG, ADDONUAPLUS, URDS, CUU #### [address] Opiate Screen,Urine Negative Normal Negative [facility] Comment on above: Performed By: #### U HCG, ADDONUAPLUS, URDS, CUU #### [address] Phencyclidine Screen,Urine Negative Normal Negative [facility] Comment on above: Performed By: #### U HCG, ADDONUAPLUS, URDS, CUU #### [facility] [address] [place] [address] [place] Eosinophils Auto (Bld) [#/Vo l]Ordered By: Matthew Leslie on 02-02-2023 Eosinophils (Bld) [#/Vol] 0.0 10*3/uL 0.0-0.45 [facility] Eosinophils/100 WBC Auto (Bl d)Ordered By: Matthew Leslie on 02-02-2023 Eosinophils/100 WBC (Bld) 0.4 % . [facility] Erythrocyte distribution wid th Auto (RBC) [Ratio]Ordered By: Matthew Leslie on 02-02-2023 Erythrocyte distribution width (RBC) [Ratio] 12.9 % 11.9-15.3 [facility] Ethanol [Mass/volume] in Ser um or PlasmaOrdered By: Matthew Leslie on 02-02-2023 Ethanol [Mass/Vol] mg/dL [facility] Ethanol [Mass/Vol] TNP [facility] Comment on above: Test not performed Ethyl Alcohol Profileon Ethanol [Mass/Vol] mg/dL Normal [facility] Comment on above: Performed By: #### E TANYA, HEPATIC, TSH3 wRFLX, CBC, CMP, [id number] #### [facility] [address] Percent Ethanol Not performed Normal [facility] Comment on above: Result Comment: PERF ORMED BY: [place] [address] PATHOLOGIST FELLING MACHINE OPERATOR MOISES VELASCO M.D. Performed By: #### E TANYA, HEPATIC, TSH3 wRFLX, CBC, CMP, [id number] #### [facility] [address] Globulin Calc (S) [Mass/Vol] Ordered By: Matthew Leslie on 02-02-2023 Globulin (S) [Mass/Vol] 3.2 g/dL [facility] Glucose [Mass/volume] in Ser um or PlasmaOrdered By: Matthew Leslie on 02-02-2023 Glucose [Mass/Vol] 98 mg/dL 70-100 [facility] Comment on above: ADA recommended refe rence rangeRandom Glucose Reference Range is dependent on time and content of last meal. Glucose of more than 200 mg/dL in a nonstressed, ambulatory subject supports the diagnosis of Diabetes Mellitus. HCG ( test) IA.nikkii d Ql (U)Ordered By: Matthew Leslei on 02-02-2023 HCG ( test) Ql (U) Negative [facility] HCG,Urineon 02-02-2023 Beta HCG ( test) Ql (U) Negative Normal [facility] Comment on above: Order Comment: Name Collection Type:: Clean-Voided Midstream Result Comment: PERF ORMED BY: [place] [address] PATHOLOGIST FELLING MACHINE OPERATOR MOISES VELASCO M.D. Performed By: #### U HCG, ADDONUAPLUS, URDS, CUU #### [facility] [address] Hematocrit Auto (Bld) [Volum e fraction]Ordered By: Matthew Leslie on 02-02-2023 Hematocrit (Bld) [Volume fraction] 41.1 % 34.0-46.4 [facility] Hemoglobin [Mass/volume] in BloodOrdered By: Matthew Leslie on 02-02-2023 Hemoglobin (Bld) [Mass/Vol] 13.8 g/dL 11.8-15.4 [facility] Hepatic Panelon 02-02-2023 Bilirubin,Indirect 0.5 mg/dL Normal [facility] Comment on above: Performed By: #### U HCG, ADDONUAPLUS, URDS, CUU #### [facility] [address] Bilirubin.indirect [Mass/Vol] 0.10 mg/dL Normal 0.03-0.18 [facility] Comment on above: Performed By: #### U HCG, ADDONUAPLUS, URDS, CUU #### [facility] [address] Ketones Auto test strip (U) [Mass/Vol]Ordered By: Matthew Leslie on 02-02-2023 Ketones (U) [Mass/Vol] 2+ Negative [facility] Leukocytes [#/volume] correc alberto for nucleated erythrocytes in Blood by Automated counOrdered By: Matthew Leslie on 02-02-2023 WBC corrected for nucl RBC Auto (Bld) [#/Vol] 7.6 10*3/uL 3.8-11.6 [facility] Lymphocytes Auto (Bld) [#/Vo l]Ordered By: Matthew Leslie on 02-02-2023 Lymphocytes (Bld) [#/Vol] 2.7 10*3/uL 1.00-4.8 [facility] Lymphocytes/100 WBC Auto (Bl d)Ordered By: Matthew Leslie on 02-02-2023 Lymphocytes/100 WBC (Bld) 36.0 % . [facility] MCH Auto (RBC) [Entitic mass ]Ordered By: Matthew Leslie on 02-02-2023 MCH (RBC) [Entitic mass] 29.4 pg 24.7-34.3 [facility] MCHC Auto (RBC) [Mass/Vol]Or dered By: Matthew Leslie on 02-02-2023 MCHC (RBC) [Mass/Vol] 33.6 g/dL 32.0-35.0 [facility] MCV Auto (RBC) [Entitic vol] Ordered By: Matthew Leslie on 02-02-2023 MCV (RBC) [Entitic vol] 87.6 fL 80-100 [facility] Monocyte distribution width [Entitic volume] in Blood by AutomatedOrdered By: Matthew Leslie on 02-02-2023 Monocyte distribution width Auto (Bld) [Entitic vol] 17.83 % 0.00-20.00 [facility] Monocytes Auto (Bld) [#/Vol] Ordered By: Matthew Leslie on 02-02-2023 Monocytes (Bld) [#/Vol] 0.6 10*3/uL 0.0-0.8 [facility] Monocytes/100 WBC Auto (Bld) Ordered By: Matthew Leslie on 02-02-2023 Monocytes/100 WBC (Bld) 7.9 % . [facility] Neutrophils Auto (Bld) [#/Vo l]Ordered By: Matthew Leslie on 02-02-2023 Neutrophils (Bld) [#/Vol] 4.2 10*3/uL 1.8-7.7 [facility] Neutrophils/100 WBC Auto (Bl d)Ordered By: Matthew Leslie on 02-02-2023 Neutrophils/100 WBC (Bld) 54.8 % . [facility] Nitrite Test strip Ql (U)Ord ered By: Matthew Leslie on 02-02-2023 Nitrite Ql (U) Negative Negative [facility] No Panel InformationOrdered By: Matthew Leslie on 02-02-2023 Estimated GFR (CKD-EPI) > 60.0 mL/Min [facility] Creatinine Clearance (Chem 76.05 [facility] Nucleated erythrocytes [Pres ence] in Blood by Automated countOrdered By: Matthew Leslie on 09-06-2023 Nucleated RBC Auto Ql (Bld) 0.0 /100{WBC} 0-0.5 [facility] Opiates [Presence] in Urine by Screen methodOrdered By: Matthew Leslie on 02-02-2023 Opiates Screen Ql (U) Negative Negative [facility] Phencyclidine Screen Ql (U)O rdered By: Matthew Leslie on 02-02-2023 Phencyclidine Ql (U) Negative Negative [facility] Platelet mean volume Auto (B ld) [Entitic vol]Ordered By: Matthew Leslie on 02-02-2023 Platelet mean volume (Bld) [Entitic vol] 9.2 fL 6.3-10.7 [facility] Platelets Auto (Bld) [#/Vol] Ordered By: Matthew Leslie on 02-02-2023 Platelets (Bld) [#/Vol] 322 10*3/uL 150-450 [facility] Potassium [Moles/volume] in Serum or PlasmaOrdered By: Matthew Leslie on 02-02-2023 Potassium [Moles/Vol] 3.8 mmol/L 3.5-5.1 [facility] Protein Auto test strip (U) [Mass/Vol]Ordered By: Matthew Leslie on 02-02-2023 Protein (U) [Mass/Vol] 30 mg/dL Negative [facility] Protein [Mass/volume] in Ser um or PlasmaOrdered By: Matthew Leslie on 02-02-2023 Protein [Mass/Vol] 7.8 g/dL 6.4-8.9 [facility] RBC Auto (Bld) [#/Vol]Ordere d By: Matthew Leslie on 02-02-2023 RBC (Bld) [#/Vol] 4.70 10*6/uL 3.60-5.00 [facility] Serum or plasma albumin/glob ulin mass ratioOrdered By: Matthew Leslie on 02-02-2023 Albumin/Globulin [Mass ratio] 1.4 {ratio} [facility] Serum or plasma anion gap de terminationOrdered By: Matthew Leslie on 02-02-2023 Anion gap [Moles/Vol] 9.5 mmol/L 6.0-15.0 [facility] Serum or plasma non-glucuron idated bilirubin measurement (mass/volume)Ordered By: Matthew Leslie on 02-02-2023 Bilirubin.indirect [Mass/Vol] 0.5 mg/dL [facility] Sodium [Moles/volume] in Ser um or PlasmaOrdered By: Mtathew Leslie on 02-02-2023 Sodium [Moles/Vol] 141 mmol/L 136-145 [facility] Specific gravity Auto test s trip (U) [Rel density]Ordered By: Matthew Leslie on 02-02-2023 Specific gravity (U) [Rel density] 1.027 1.001-1.030 [facility] Squamous epithelial cells de tection in urine sediment by light microscopyOrdered By: Matthew Leslie on 02-02-2023 Epithelial cells.squamous LM Ql (Urine sed) 3-4 [HPF] 0-2 [facility] Thyroid Stim Hormone w/Rflxo n 02-02-2023 Thyroid Stim Hormone w/Rflx 3.74 u[iU]/mL Normal 0.45-5.33 [facility] Comment on above: Performed By: #### U HCG, ADDONUAPLUS, URDS, CUU #### [facility] [address] Thyrotropin [Units/volume] i n Serum or PlasmaOrdered By: Matthew Leslie on 02-02-2023 TSH Qn 3.74 m[IU]/L 0.45-5.33 [facility] Urea nitrogen [Mass/volume] in Serum or PlasmaOrdered By: Matthew Leslie on 02-02-2023 Urea nitrogen [Mass/Vol] 11 mg/dL 7-25 [facility] Urine Cultureon 02-02-2023 Bacteria identified Cx Nom (U) No Growth 2 Days PERFORMED BY: [place] [address] PATHOLOGIST FELLING MACHINE OPERATOR MOISES VELASCO M.D. Normal [facility] Comment on above: Performed By: #### U HCG, ADDONUAPLUS, URDS, CUU #### [facility] [address] Urine bacteria detection by automated methodOrdered By: Matthew Leslie on 02-02-2023 Bacteria Auto Ql (U) 1+ None [facility] [facility] Urine clarity by refractomet ry automatedOrdered By: Matthew Leslie on 02-02-2023 Clarity Refractometry automated (U) Cloudy Clear [facility] Urine culture routineOrdered By: Matthew Leslie on 02-02-2023 Bacteria identified Cx Nom (U) No Growth 2 Days [facility] Urine glucose measurement by automated test strip (mass/volume)Ordered By: Matthew Leslie on 02-02-2023 Glucose Auto test strip (U) [Mass/Vol] Normal mg/dL Normal [facility] Urine hemoglobin detection b y automated test stripOrdered By: Matthew Leslie on 02-02-2023 Hemoglobin Auto test strip Ql (U) 3+ Negative [facility] Urine leukocyte esterase det ection by automated test stripOrdered By: Matthew Leslie on 02-02-2023 Leukocyte esterase Auto test strip Ql (U) 2+ Negative [facility] Urobilinogen Auto test strip (U) [Mass/Vol]Ordered By: Matthew Leslie on 02-02-2023 Urobilinogen (U) [Mass/Vol] Normal mg/dL Normal [facility] Vitamin D 25 Hydroxy Totalon 02-02-2023 Vitamin D 25 Hydroxy Total 54.2 ng/mL Normal 30-100 [facility] Comment on above: Result Comment: MABLE MIN D STATUS 25(OH)VITAMIN D RANGE (ng/mL) Deficient <20 Insufficient 20 to <30 Sufficient 30 to 100 Reference: Miri MF,Nimisha NC, Luisa MCCRACKEN, et al. Evaluation,treatment, and prevention of vitamin D deficiency; an Endocrine Society clinical practice guideline. JCEM. 2010; 96(7):1911-30. PERFORMED BY: [place] [address] PATHOLOGIST FELLING MACHINE OPERATOR MOISES VELASCO M.D. Performed By: #### U MARICRUZ MCCARTNEY URDS CUU #### [address] Vitamin D+Metabolites [Mass/ volume] in Serum or PlasmaOrdered By: Matthew Leslie on 02-02-2023 Vitamin D+Metabolites [Mass/Vol] 54.2 ng/mL 30-100 [facility] Comment on above: VITAMIN D STATUS 25( OH)VITAMIN D RANGE (ng/mL) Deficient <20 Insufficient 20 to <30Sufficient 30 to 100Reference: Miri MF,Nimisha NC, Luisa MCCRACKEN, et al. Evaluation,treatment, and prevention of vitamin D deficiency; an Endocrine Society clinical practice guideline. JCEM. 2010; 96(7):1911-30. WBC Auto (Bld) [#/Vol]Ordere d By: Matthew Leslie on 02-02-2023 WBC (Bld) [#/Vol] 7.6 10*3/uL 3.8-11.6 [facility] [place] Yeast detection in urine sed iment by light microscopyOrdered By: Matthew Leslie on 02-02-2023 Yeast LM Ql (Urine sed) None seen [HPF] None Se en [facility] pH Auto test strip (U)Ordere d By: Matthew Leslie on 02-02-2023 pH (U) 6.0 [pH] 5.0-9.0 [facility] AMNISUREon 09-16-2022 AMNISURE Positive Abnormal NEGATIVE [facility] Comment on above: Performed By: #### A MNI #### [facility] [address] [place] [address] Dr. Adrianna Caldera CBC AUTO DIFFon 09-16-2022 BASO # 0.1 103/ul Normal 0.0-0.1 [facility] Comment on above: Performed By: #### C BC #### [facility] [address] [place] [address] Dr. Adrianna Caldera Basophils/100 WBC (Bld) 0.4 % Normal 0.2-2.0 [facility] Comment on above: Performed By: #### C BC #### [facility] [address] [place] [address] Dr. Adrianna Caldera EO # 0.0 103/ul Normal 0.0-0.7 [facility] Comment on above: Performed By: #### C BC #### [facility] [address] [place] [address] Dr. Adrianna Caldera Eosinophils/100 WBC (Bld) 0.1 % Critically low 0.9-7.0 [facility] Comment on above: Performed By: #### C BC #### [facility] [address] [place] [address] Dr. Adrianna Caldera Erythrocyte distribution width (RBC) [Ratio] 12.3 % Normal 11.0-15.0 [facility] Comment on above: Performed By: #### C BC #### [facility] [address] [place] [address] Dr. Adrianna Caldera Hematocrit (Bld) [Volume fraction] 38.3 % Normal 36.0-48.0 [facility] Comment on above: Performed By: #### C BC #### [facility] [address] [place] [address] Dr. Adrianna Caldera Hemoglobin (Bld) [Mass/Vol] 12.8 g/dL Normal 12.0-16.0 [facility] Comment on above: Performed By: #### C BC #### [facility] [address] [place] [address] Dr. Adrianna Caldera IG # 0.20 10e3/ul Critically high 0.00-0.03 [facility] Comment on above: Performed By: #### C BC #### [facility] [address] [place] [address] Dr. Adrianna Caldera IG % 1.0 % Critically high 0.0-0.5 [facility] Comment on above: Performed By: #### C BC #### [facility] [address] [place] [address] Dr. Adrianna Caldera LYMPH # 1.5 103/ul Normal 1.2-3.8 [facility] Comment on above: Performed By: #### C BC #### [facility] [address] [place] [address] Dr. Adrianna Caldera Lymphocytes/100 WBC (Bld) 7.7 % Critically low 20.5-60.0 [facility] Comment on above: Performed By: #### C BC #### [facility] [address] [place] [address] Dr. Adrianna Caldera MANUAL DIFF REQ NO Normal [facility] Comment on above: Performed By: #### C BC #### [facility] [address] [address] [address] Ardianna Caldera MCH (RBC) [Entitic mass] 28.9 pg Normal 26.7-34.0 [facility] Comment on above: Performed By: #### C BC #### [facility] [address] [place] [address] Dr. Adrianna Caldera MCHC (RBC) [Mass/Vol] 33.4 g/dL Normal 29.9-35.2 [facility] Comment on above: Performed By: #### C BC #### [facility] [address] [place] [address] Dr. Adrianna Caldera MCV (RBC) [Entitic vol] 86.5 fL Normal 81.0-99.0 [facility] Comment on above: Performed By: #### C BC #### [facility] [address] [place] [address] Dr. Adrianna Caldera MONO # 0.3 103/ul Normal 0.3-0.8 [facility] Comment on above: Performed By: #### C BC #### [facility] [address] [place] [address] Dr. Adrianna Caldera Monocytes/100 WBC (Bld) 1.7 % Normal 1.7-12.0 [facility] Comment on above: Performed By: #### C BC #### [facility] [address] [place] [address] Dr. Adrianna Caldera NEUT # 17.5 103/ul Critically high 1.4-6.5 [facility] Comment on above: Performed By: #### C BC #### [facility] [address] [place] [address] Dr. Adrianna Caldera Neutrophils/100 WBC (Bld) 89.1 % Critically high 43.0-75.0 [facility] Comment on above: Performed By: #### C BC #### [facility] [address] [place] [address] Dr. Adrianna Caldera Platelet mean volume (Bld) [Entitic vol] 10.7 fL Normal 9.5-13.5 [facility] Comment on above: Performed By: #### C BC #### [facility] [address] [place] [address] Dr. Adrianna Caldera PLT 356 103/ul Normal 150-450 [facility] Comment on above: Performed By: #### C BC #### [facility] [address] [place] [address] Dr. Adrianna Caldera RBC 4.43 106/ul Normal 4.20-5.40 [facility] Comment on above: Performed By: #### C BC #### [facility] [address] [place] [address] Dr. Adrianna Caldera WBC 19.6 103/ul Critically high 4.0-11.0 [facility] Comment on above: Performed By: #### C BC #### [facility] [address] [place] [address] Dr. Adrianna Caldera UA (CLEAN/CATCH) SWITCH COUPLER/MICRO I F IND.on 09-16-2022 Bilirubin Ql (U) Negative Normal NEGATIVE [facility] Comment on above: Performed By: #### U ACSIND #### [facility] [address] [place] [address] Dr. Adrianna Caldera Clarity (U) CLEAR Normal CLEAR [facility] Comment on above: Performed By: #### U ACSIND #### [facility] [address] [place] [address] Dr. Adrianna Caldera Color (U) LT. YELLOW Normal YELLOW [facility] Comment on above: Performed By: #### U ACSIND #### [facility] [address] [place] [address] Dr. Adrianna Caldera Glucose Ql (U) Negative Normal NEGATIVE [facility] Comment on above: Performed By: #### U ACSIND #### [facility] [address] [place] [address] Dr. Adrianna Caldera Hemoglobin Ql (U) Negative Normal NEGATIVE [facility] Comment on above: Performed By: #### U ACSIND #### [facility] [address] [place] [address] Dr. Adrianna Caldera Ketones Ql (U) Negative Normal NEGATIVE [facility] Comment on above: Performed By: #### U ACSIND #### [facility] [address] [address] [address] Adrianna Caldera LEUKOCYTES Negative Normal NEGATIVE [facility] Comment on above: Performed By: #### U ACSIND #### [facility] [address] [address] [address] Adrianna Caldera Nitrite Ql (U) Negative Normal NEGATIVE [facility] Comment on above: Performed By: #### U ACSIND #### [facility] [address] [address] [address] Adrianna Caldera pH (U) 5.5 [pH] Normal 5-9 [facility] Comment on above: Performed By: #### U ACSIND #### [facility] [address] [place] [address] Dr. Adrianna Caldera SPEC GRAVITY 1.010 Normal 1.005-<=1.0 25 [facility] Comment on above: Performed By: #### U ACSIND #### [facility] [address] [place] [address] Dr. Adrianna Caldera UA PROTEIN Negative Normal NEGATIVE/ TRACE [facility] Comment on above: Performed By: #### U ACSIND #### [facility] [address] [address] [address] Adrianna Caldera UR MICRO IND NOT INDICATED Normal [facility] Comment on above: Performed By: #### U ACSIND #### [facility] [address] [place] [address] Dr. Adrianna Caldera Urobilinogen Qn (U) 0.2 {Micheal'U}/dL Normal 0.2 - 1. 0 [facility] Comment on above: Performed By: #### U ACSIND #### [facility] [address] [place] [address] Dr. Adrianna Caldera US PREG GROWTHon 09-16-2022 [...] KAROL SIDDIQUI Date: 2022-09-16 15:19 Normal [facility] UA (CLEAN/CATCH) SWITCH COUPLER/MICRO I F IND.on 09-04-2022 Bilirubin Ql (U) Negative Normal NEGATIVE [facility] Comment on above: Performed By: #### U ACSIND ####[facility] [address] [place], [place] [address]Dr. Adrianna Caldera Clarity (U) CLEAR Normal CLEAR [facility] Comment on above: Performed By: #### U ACSIND ####[facility] [address] [place], [place] [address]Dr. Adrianna Caldera Color (U) LT. YELLOW Normal YELLOW [facility] Comment on above: Performed By: #### U ACSIND ####[facility] [address] [place], [place] [address]Dr. Adrianna Caldera Glucose Ql (U) Negative Normal NEGATIVE [facility] Comment on above: Performed By: #### U ACSIND ####[facility] [address] [address]Dr. Adrianna Caldera Hemoglobin Ql (U) Negative Normal NEGATIVE [facility] Comment on above: Performed By: #### U ACSIND ####[facility] [address] [address]Dr. Adrianna Caldera Ketones Ql (U) Negative Normal NEGATIVE [facility] Comment on above: Performed By: #### U ACSIND ####[facility] [address] [address]Dr. Adrianna Werner LEUKOCYTES Negative Normal NEGATIVE [facility] Comment on above: Performed By: #### U ACSIND ####[facility] [address] [address]Dr. Adrianna Caldera Nitrite Ql (U) Negative Normal NEGATIVE [facility] Comment on above: Performed By: #### U ACSIND ####[facility] [address] [address]Dr. Jemimabenito Werner pH (U) 7.5 [pH] Normal 5-9 [facility] Comment on above: Performed By: #### U ACSIND ####[facility] [address] [place], [place] [address]Dr. Jemimabenito Werner SPEC GRAVITY 1.010 Normal 1.005-<=1.0 25 [facility] Comment on above: Performed By: #### U ACSIND ####[facility] [address] [address]Dr. Adrianna Caldera UA PROTEIN Negative Normal NEGATIVE/ TRACE [facility] Comment on above: Performed By: #### U ACSIND ####[facility] [address] [place], [place] [address]Dr. Adrianna Caldera UR MICRO IND NOT INDICATED Normal [facility] Comment on above: Performed By: #### U ACSIND ####[facility] [address] [address]Dr. Adrianna Caldera Urobilinogen Qn (U) 0.2 {Micheal'U}/dL Normal 0.2 - 1. 0 [facility] Comment on above: Performed By: #### U ACSIND ####[facility] [address] [address]Dr. Adrianna Caldera GTT 3 HR PREGon 08-30-2022 Glucose [Mass/Vol] 88 mg/dL Normal 74-106 [facility] Comment on above: Performed By: #### G TT3P ####[facility] [address] [place], [place] [address]Dr. Adrianna Caldera Glucose [Mass/Vol] 167 mg/dL Normal [facility] Comment on above: Performed By: #### G TT3P ####[facility] [address] [place], [place] [address]Un. Adrianna Caldera Glucose [Mass/Vol] 136 mg/dL Normal [facility] Comment on above: Performed By: #### G TT3P ####[facility] [address] [place], [place] [address]Ku. Adrianna Caldera Glucose [Mass/Vol] 144 mg/dL Normal [facility] Comment on above: Performed By: #### G TT3P ####[facility] [address] [place], [place] [address]Uz. Adrianna Caldera US PREG PLACENTAon 3 US [...] KAROL SIDDIQUI Date: 2022-08-17 15:46 Normal [facility] CBC with Diffon 08-10-2022 Abs. Basophil 0.04 k/uL Normal 0.00-0.20 [facility] Comment on above: Performed By: #### L TATA LOPEZ, CP #### [facility] [address] [place] [address] [place] [address] Professor In Family Studies: Cholo Alicea MD Abs.Imm.Granulocyte 0.10 k/uL Normal 0.00-0.30 [facility] Comment on above: Performed By: #### L TATA LOPEZ, CP #### [address] [place] [address] Professor In Family Studies: Cholo Alicea MD Abs.Neutrophil (Seg) 9.26 k/uL High 1.50-8.10 [facility] Comment on above: Performed By: #### L TATA LOPEZ, CP #### [address] [place], [place] [id number] Professor In Family Studies: Cholo Alicea MD Basophils/100 WBC (Bld) 0 % Normal 0-2 [facility] Comment on above: Performed By: #### L IP, CDP, CP #### [address] [place], [facility]83 Professor In Family Studies: Cholo Alicea MD Eosinophils (Bld) [#/Vol] 0.05 10*3/uL Normal 0.00-0.44 [facility] Comment on above: Performed By: #### L IP, CDP, CP #### [address] [place], [place] [address] Professor In Family Studies: Cholo Alicea MD Eosinophils/100 WBC (Bld) 0 % Low 1-4 [facility] Comment on above: Performed By: #### L IP, CDP, CP #### [address] [place], [place] [address] Professor In Family Studies: Cholo Alicea MD Erythrocyte distribution width (RBC) [Ratio] 12.5 % Normal 11.8-14.4 [facility] Comment on above: Performed By: #### L IP, CDP, CP #### [address] [place], [facility]83 Professor In Family Studies: Cholo Alicea MD Hematocrit (Bld) [Volume fraction] 35.2 % Low 36.3-47.1 [facility] Comment on above: Performed By: #### L IP, CDP, CP #### [address] [place], [facility]83 Professor In Family Studies: Cholo Alicea MD Hemoglobin (Bld) [Mass/Vol] 11.6 g/dL Low 11.9-15.1 [facility] Comment on above: Performed By: #### L IP, CDP, CP #### [address] [place], [facility]83 Professor In Family Studies: Cholo Alicea MD Immature granulocytes/100 WBC (Bld) 1 % High 0 [facility] Comment on above: Performed By: #### L IP, CDP, CP #### [facility] [address] [place], [place] [id number] Professor In Family Studies: Cholo Alicea MD Lymphocytes (Bld) [#/Vol] 1.99 10*3/uL Normal 1.10-3.70 [facility] Comment on above: Performed By: #### L IP, CDP, CP #### [address] [place] [id number] Professor In Family Studies: Cholo Alicea MD Lymphocytes/100 WBC (Bld) 17 % Low 24-43 [facility] Comment on above: Performed By: #### L IP, CDP, CP #### [address] [place], [facility]83 Professor In Family Studies: Cholo Alicea MD MCH (RBC) [Entitic mass] 30.8 pg Normal 25.2-33.5 [facility] Comment on above: Performed By: #### L IP, CDP, CP #### [address] [place] [id number] Professor In Family Studies: Cholo Alicea MD MCHC (RBC) [Mass/Vol] 33.0 g/dL Normal 28.4-34.8 [facility] Comment on above: Performed By: #### L IP, CDP, CP #### [facility] [address] [place] [address] Dr. [place], [facility]83 Professor In Family Studies: Cholo Alicea MD MCV (RBC) [Entitic vol] 93.4 fL Normal 82.6-102.9 [facility] Comment on above: Performed By: #### L IP, CDP, CP #### [address] [place] [address] Professor In Family Studies: Cholo Alicea MD Monocytes (Bld) [#/Vol] 0.43 10*3/uL Normal 0.10-1.20 [facility] Comment on above: Performed By: #### L IP, CDP, CP #### [facility] [address] [place], [place] [address] Professor In Family Studies: Cholo Alicea MD Monocytes/100 WBC (Bld) 4 % Normal 3-12 [facility] Comment on above: Performed By: #### L IP, CDP, CP #### [facility] [address] [place] [address] Professor In Family Studies: Cholo Alicea MD Neutrophil (Seg) 78 % High 36-65 [facility] Comment on above: Performed By: #### L IP, CDP, CP #### [facility] [address] [place], [place] [address] Professor In Family Studies: Cholo Alicea MD NRBC Automated 0.0 per 100 WBC Normal 0.0 [facility] Comment on above: Performed By: #### L IP CDP, CP #### [facility] [address] [place] [address] Dr. [place], [place] [address] Professor In Family Studies: Cholo Alicea MD Platelet mean volume (Bld) [Entitic vol] 10.6 fL Normal 8.1-13.5 [facility] Comment on above: Performed By: #### L IP, CDP, CP #### [facility] [address] [place] [address] [place] [address] Professor In Family Studies: Cholo Alicea MD Platelets (Bld) [#/Vol] 333 10*3/uL Normal 138-453 [facility] Comment on above: Performed By: #### L IP, CDP, CP #### [facility] [address] [place] [address] Professor In Family Studies: Cholo Alicea MD RBC (Bld) [#/Vol] 3.77 10*6/uL Low 3.95-5.11 [facility] Comment on above: Performed By: #### L IP, CDP, CP #### [facility] [address] [place] [address] Professor In Family Studies: Cholo Alicea MD WBC (Bld) [#/Vol] 11.9 10*3/uL High 3.5-11.3 [facility] Comment on above: Performed By: #### L IP, CDP, CP #### [facility] [address] [place] [address] Professor In Family Studies: Cholo Alicea MD Glucose Andrae Scr 50gon 2022 Glucose [Mass/Vol] 161 mg/dL High 70-135 [facility] Comment on above: Performed By: #### L IP, CDP, CP #### [facility] [address] [place] [address] Professor In Family Studies: Cholo Alicea MD Glu Administered via Glucola Normal [facility] Comment on above: Performed By: #### L IP, CDP, CP #### [facility] [address] [place] [address] Professor In Family Studies: Cholo Alicea MD UA (CLEAN/CATCH) SWITCH COUPLER/MICRO I F IND.on 07-21-2022 Bilirubin Ql (U) Negative Normal NEGATIVE [facility] Comment on above: Performed By: #### U ACSIND ####[facility] [address] [address]Dr. Adrianna Caldera Clarity (U) CLEAR Normal CLEAR [facility] Comment on above: Performed By: #### U ACSIND ####[facility] [address] [address]Dr. Adrianna Caldera Color (U) LT. YELLOW Normal YELLOW [facility] Comment on above: Performed By: #### U ACSIND ####[facility] [address] [address]Dr. Adrianna Caldera Glucose Ql (U) Negative Normal NEGATIVE [facility] Comment on above: Performed By: #### U ACSIND ####[facility] [address] [address]Dr. Adrianna Caldera Hemoglobin Ql (U) Negative Normal NEGATIVE [facility] Comment on above: Performed By: #### U ACSIND ####[facility] [address] [address]Dr. Jemimabenito Caldera Ketones Ql (U) Negative Normal NEGATIVE [facility] Comment on above: Performed By: #### U ACSIND ####[facility] [address] [place], [place] [address]Dr. Jemimabenito Caldera LEUKOCYTES Negative Normal NEGATIVE [facility] Comment on above: Performed By: #### U ACSIND ####[facility] [address] [place], [place] [address]Dr. Jemimabenito Werner Nitrite Ql (U) Negative Normal NEGATIVE [facility] Comment on above: Performed By: #### U ACSIND ####[facility] [address] [place], [place] [address]Dr. Adrianna Caldera pH (U) 7.0 [pH] Normal 5-9 [facility] Comment on above: Performed By: #### U ACSIND ####[facility] [address] [place], [place] [address]Dr. Jemimabenito Werner SPEC GRAVITY 1.010 Normal 1.005-<=1.0 25 [facility] Comment on above: Performed By: #### U ACSIND ####[facility] [address] [place], [place] [address]Dr. Adrianna Caldera UA PROTEIN Negative Normal NEGATIVE/ TRACE [facility] Comment on above: Performed By: #### U ACSIND ####[facility] [address] [place], [place] [address]Dr. Adrianna Caldera UR MICRO IND NOT INDICATED Normal [facility] Comment on above: Performed By: #### U ACSIND ####[facility] [facility] [id number] [place], [place] [address]Dr. Adrianna Caldera Urobilinogen Qn (U) 0.2 {Micheal'U}/dL Normal 0.2 - 1. 0 [facility] Comment on above: Performed By: #### U ACSIND ####[facility] [address] [place], [place] [address]GhAung Adrianna Caldera US PREG ANATOMY SINGLEon US [...] by: KAROL SIDDIQUI Date: 2022-07-21 16:41 Normal [facility] PAP ACOG PANEL 2: 21 to 29on 07-12-2022 . . Normal [facility] Comment on above: Performed By: #### [id number] ####[facility] [address] [place], [place] [address]AxAung Adrianna Caldera Age Gdln ACOG Testing 21-29 Normal [facility] Comment on above: Performed By: #### 4 [id number] ####[facility] [address] [place], [place] [address]DrAung Caldera DIAGNOSIS: Comment Normal [facility] Comment on above: Result Comment: NEGA TIVE FOR INTRAEPITHELIAL LESION OR MALIGNANCY. Performed By: #### 4 [id number] ####[facility] [address] [place], [place] [address]DrAung Caldera Methodology: Comment Normal [facility] Comment on above: Result Comment: This liquid based ThinPrep(R) pap test was screened with the use of an image guided system. Performed By: #### 4 [id number] ####[facility] [address] [place], [place] [address]DrAung Caldera Note: Comment Normal [facility] Comment on above: Result Comment: The Pap smear is a screening test designed to aid in the detection of premalignant and malignant conditions of the uterine cervix. It is not a diagnostic procedure and should not be used as the sole means of detecting cervical cancer. Both false-positive and false-negative reports do occur. . Performed By: #### 4 [id number] ####[facility] [address] [place], [place] [address]DrAung Caldera Performed by: Comment Normal [facility] Comment on above: Result Comment: [place] Yin, Licensing Representative (ASCP) Performed By: #### 4 [id number] ####[facility] [address] [place], [place] [address]DrAung Caldera Reflex Criteria: Comment Normal [facility] Comment on above: Result Comment: The HPV DNA reflex criteria were not met with this specimen result therefore, no HPV testing was performed. . Performed By: #### 4 [id number] ####[facility] [address] [place], [place] [address]DrAung Caldera Specimen adequacy: Comment Normal [facility] Comment on above: Result Comment: Sati sfactory for evaluation. No endocervical component is identified. Performed By: #### 4 [id number] ####[facility] [address] [place], [place] [address]DrAung Caldera CHLAMYDIA/GONOCOCCUS ALEKSANDER (SW AB/URINE/PAPon 07-07-2022 Chlamydia trachomatis, ALEKSANDER Negative Normal Negative [facility] Comment on above: Performed By: #### C T/NGNA ####[facility] [address] [address]Dr. Adrianna Caldera Neisseria gonorrhoeae, ALEKSANDER Negative Normal Negative [facility] Comment on above: Performed By: #### C T/NGNA ####[facility] [address] [address]Dr. Adrianna Caldera VAGINITIS/VAGINOSIS DNA PROB Scott 07-07-2022 Sherley species Negative Normal Negative [facility] Comment on above: Performed By: #### U ACSIND #### [facility] [address] [address] [address] Adrianna Caldera Gardnerella vaginalis Negative Normal Negative [facility] Comment on above: Performed By: #### U ACSIND #### [facility] [address] [address] [address] Adrianna Caldera Trichomonas vaginalis Negative Normal Negative [facility] Comment on above: Performed By: #### U ACSIND #### [facility] [address] [address] [address] Adrianna Caldera Cult,Urineon 07-02-2022 Cult,Urine Specimen Description .CLEAN CATCH URINE Culture NO SIGNIFICANT GROWTH Report Status FINAL 07/02/2022 [facility] Comment on above: Performed By: #### L TATA LOPEZ, CP #### [facility] [address] [place] [address] Professor In Family Studies: Cholo Alicea MD ABO/RHon 06-30-2022 ABO/Rh Negative [facility] ABO/Rh(D)on 06-30-2022 ABO/Rh(D) Negative [facility] Comment on above: Performed By: #### L TATA LOPEZ, CP #### [facility] [address] [place] [address] Professor In Family Studies: Cholo Alicea MD CBC with Auto Differentialon 06-30-2022 Absolute Eos # 0.06 [facility] Absolute Immature Granulocyte 0.07 [facility] Absolute Lymph # 2.91 [facility] Absolute [place] # 0.66 [facility] Basophils (Bld) [#/Vol] 0.04 10*3/uL [facility] Basophils/100 WBC (Bld) 0 % 0 - 2 % B ON [facility] Eosinophils/100 WBC (Bld) 1 % 1 - 4 % [facility] Hematocrit (Bld) [Volume fraction] 35.2 % Low 36.3 - 47.1 % [facility] Hemoglobin (Bld) [Mass/Vol] 11.9 g/dL 11.9 - 15.1 g/dL [facility] Immature granulocytes/100 WBC (Bld) 1 % High 0 [facility] Interpretation and review of laboratory results Abnormal [facility] Lymphocytes/100 WBC (Bld) 24 % 24 - 43 % [facility] MCH (RBC) [Entitic mass] 30.7 pg 25.2 - 33.5 pg [facility] MCHC (RBC) [Mass/Vol] 33.8 g/dL 28.4 - 34.8 g/dL [facility] MCV (RBC) [Entitic vol] 91.0 fL 82.6 - 102.9 fL [facility] Monocytes/100 WBC (Bld) 5 % 3 - 12 % B ON [facility] NRBC Automated 0.0 0.0 per 100 WBC [facility] Platelet distribution width (Bld) [Ratio] 12.2 % 11.8 - 14.4 % [facility] Platelet mean volume (Bld) [Entitic vol] 10.5 fL 8.1 - 13.5 fL [facility] Platelets (Bld) [#/Vol] 301 10*3/uL [facility] RBC (Bld) [#/Vol] 3.87 10*6/uL Low 3.95 - 5.1 1 m/uL [facility] Segmented neutrophils/100 WBC (Bld) 69 % High 36 - 65 % [facility] Segs Absolute 8.40 High [facility] WBC (Bld) [#/Vol] 12.1 10*3/uL High [facility] CBC with Diffon 06-30-2022 Abs. Basophil 0.04 k/uL Normal 0.00-0.20 [facility] Comment on above: Performed By: #### L IP, CDP, CP #### [facility] [address] [place] [address] Dr. [place], [place] [address] Professor In Family Studies: Cholo Alicea MD Abs.Imm.Granulocyte 0.07 k/uL Normal 0.00-0.30 [facility] Comment on above: Performed By: #### L IP, CDP, CP #### [address] [place] [address] Professor In Family Studies: Cholo Alicea MD Abs.Neutrophil (Seg) 8.40 k/uL High 1.50-8.10 [facility] Comment on above: Performed By: #### L IP, CDP, CP #### [address] [place], [place] [address] Professor In Family Studies: Cholo Alicea MD Basophils/100 WBC (Bld) 0 % Normal 0-2 [facility] Comment on above: Performed By: #### L IP, CDP, CP #### [address] [place], [place] [address] Professor In Family Studies: Cholo Alicea MD Eosinophils (Bld) [#/Vol] 0.06 10*3/uL Normal 0.00-0.44 [facility] Comment on above: Performed By: #### L IP, CDP, CP #### [address] [place], [place] 9688183 Professor In Family Studies: Cholo Alicea MD Eosinophils/100 WBC (Bld) 1 % Normal 1-4 [facility] Comment on above: Performed By: #### L IP, CDP, CP #### [facility] [address] [place], [place] [id number] Professor In Family Studies: Cholo Alicea MD Erythrocyte distribution width (RBC) [Ratio] 12.2 % Normal 11.8-14.4 [facility] Comment on above: Performed By: #### L IP, CDP, CP #### [address] [place], [place] 5130983 Professor In Family Studies: Cholo Alicea MD Hematocrit (Bld) [Volume fraction] 35.2 % Low 36.3-47.1 [facility] Comment on above: Performed By: #### L IP, CDP, CP #### [address] [place], [facility]83 Professor In Family Studies: Cholo Alicea MD Hemoglobin (Bld) [Mass/Vol] 11.9 g/dL Normal 11.9-15.1 [facility] Comment on above: Performed By: #### L IP, CDP, CP #### [address] [place], [facility]83 Professor In Family Studies: Cholo Alicea MD Immature granulocytes/100 WBC (Bld) 1 % High 0 [facility] Comment on above: Performed By: #### L IP, CDP, CP #### [address] [place], [facility]83 Professor In Family Studies: Cholo Alicea MD Lymphocytes (Bld) [#/Vol] 2.91 10*3/uL Normal 1.10-3.70 [facility] Comment on above: Performed By: #### L IP, CDP, CP #### [address] [place], [place] 19[address]83 Professor In Family Studies: Cholo Alicea MD Lymphocytes/100 WBC (Bld) 24 % Normal 24-43 [facility] Comment on above: Performed By: #### L IP, CDP, CP #### [address] [place] [address] Professor In Family Studies: Cholo Alicea MD MCH (RBC) [Entitic mass] 30.7 pg Normal 25.2-33.5 [facility] Comment on above: Performed By: #### L IP, CDP, CP #### [address] [place] [id number] Professor In Family Studies: Cholo Alicea MD MCHC (RBC) [Mass/Vol] 33.8 g/dL Normal 28.4-34.8 [facility] Comment on above: Performed By: #### L IP, CDP, CP #### [address] [place] [address] Professor In Family Studies: Cholo Alicea MD MCV (RBC) [Entitic vol] 91.0 fL Normal 82.6-102.9 [facility] Comment on above: Performed By: #### L IP, CDP, CP #### [address] [place] [address] Professor In Family Studies: Cholo Alicea MD Monocytes (Bld) [#/Vol] 0.66 10*3/uL Normal 0.10-1.20 [facility] Comment on above: Performed By: #### L IP, CDP, CP #### [address] [place] [address] Professor In Family Studies: Cholo Alicea MD Monocytes/100 WBC (Bld) 5 % Normal 3-12 [facility] Comment on above: Performed By: #### L IP, CDP, CP #### [address] [place] [id number] Professor In Family Studies: Cholo Alicea MD Neutrophil (Seg) 69 % High 36-65 [facility] Comment on above: Performed By: #### L IP, CDP, CP #### [address] [place] [id number] Professor In Family Studies: Cholo Alicea MD NRBC Automated 0.0 per 100 WBC Normal 0.0 [facility] Comment on above: Performed By: #### L TATA LOPEZ, CP #### [facility] [address] [place] [address] Professor In Family Studies: Cholo Alicea MD Platelet mean volume (Bld) [Entitic vol] 10.5 fL Normal 8.1-13.5 [facility] Comment on above: Performed By: #### L TATA LOPEZ, CP #### [facility] [address] [place], [place] [address]83 Professor In Family Studies: Cholo Alicea MD Platelets (Bld) [#/Vol] 301 10*3/uL Normal 138-453 [facility] Comment on above: Performed By: #### L TATA LOPEZ, CP #### [address] [place] [address] Professor In Family Studies: Cholo Alicea MD RBC (Bld) [#/Vol] 3.87 10*6/uL Low 3.95-5.11 [facility] Comment on above: Performed By: #### L TATA LOPEZ, CP #### [address] [place], [place] 010[address]83 Professor In Family Studies: Cholo Alicea MD WBC (Bld) [#/Vol] 12.1 10*3/uL High 3.5-11.3 [facility] Comment on above: Performed By: #### L TATA LOPEZ, CP #### [facility] [address] [place] [address] Dr. [place], [place] [phone] Professor In Family Studies: Cholo Alicea MD [facility] Albumin [Mass/Vol] 3.6 g/dL 3.5 - 5.2 g/dL [facility] Albumin/Globulin [Mass ratio] 1.1 {ratio} 1.0 - 2.5 [facility] ALP [Catalytic activity/Vol] 74 U/L 35 - 104 U/L [facility] ALT [Catalytic activity/Vol] 9 U/L 5 - 33 U/L [facility] Anion gap [Moles/Vol] 13 mmol/L 9 - 17 mmol/L [facility] AST [Catalytic activity/Vol] 18 U/L NINF - 32 U/L [facility] Bilirubin [Mass/Vol] mg/dL Low 0.3 - 1 .2 mg/dL [facility] Calcium [Mass/Vol] 9.5 mg/dL 8.6 - 10. 4 mg/dL [facility] Chloride [Moles/Vol] 101 mmol/L 98 - 10 7 mmol/L [facility] CO2 [Moles/Vol] 21 mmol/L 20 - 31 mmol/L [facility] Creatinine [Mass/Vol] 0.55 mg/dL 0.50 - 0.90 mg/dL [facility] GFR/1.73 sq M.predicted MDRD (S/P/Bld) [Vol rate/Area] - PINF [facility] Comment on above: These results are not [...] [Mass/Vol] 84 mg/dL 70 - 99 mg/dL [facility] Interpretation and review of laboratory results Abnormal [facility] Potassium [Moles/Vol] 3.8 mmol/L 3.7 - 5.3 mmol/L [facility] Protein [Mass/Vol] 6.9 g/dL 6.4 - 8.3 g/dL [facility] Sodium [Moles/Vol] 135 mmol/L 135 - 144 mmol/L [facility] Urea nitrogen [Mass/Vol] 8 mg/dL 6 - 20 mg/dL [facility] Urea nitrogen/Creatinine (Bld) [Mass ratio] 15 9 - 20 [facility] Comp Metabolic Profon 2022 Bilirubin [Mass/Vol] mg/dL Low 0.3-1.2 [facility] Comment on above: Performed By: #### L IP, CDP, CP #### [facility] [address] [place] [address] Professor In Family Studies: Cholo Alicea MD Albumin [Mass/Vol] 3.6 g/dL Normal 3.5-5.2 [facility] Comment on above: Performed By: #### L IP, CDP, CP #### [facility] [address] [place] [address] Professor In Family Studies: Cholo Alicea MD Albumin/Glob Ratio 1.1 Normal 1.0-2.5 [facility] Comment on above: Performed By: #### L IP, CDP, CP #### [address] [place] [address] Professor In Family Studies: Cholo Alicea MD Alkaline Phos 74 U/L Normal 35-104 [facility] Comment on above: Performed By: #### L IP, CDP, CP #### [address] [place], [place] [phone] Professor In Family Studies: Cholo Alicea MD ALT [Catalytic activity/Vol] 9 U/L Normal 5-33 [facility] Comment on above: Performed By: #### L IP, CDP, CP #### [facility] [address] [place] [address] [place] [address] Professor In Family Studies: Cholo Alicea MD Anion gap [Moles/Vol] 13 mmol/L Normal 9-17 [facility] Comment on above: Performed By: #### L IP, CDP, CP #### [facility] [address] [place] [address] Professor In Family Studies: Cholo Alicea MD AST [Catalytic activity/Vol] 18 U/L Normal <32 [facility] Comment on above: Performed By: #### L IP, CDP, CP #### [facility] [address] [place], [place] [phone] Professor In Family Studies: Cholo Alicea MD BUN/CRE Ratio 15 Normal 9-20 [facility] Comment on above: Performed By: #### L IP, CDP, CP #### [facility] [address] [place], [place] [id number] Professor In Family Studies: Cholo Alicea MD Calcium [Mass/Vol] 9.5 mg/dL Normal 8.6-10.4 [facility] Comment on above: Performed By: #### L IP, CDP, CP #### [facility] [address] [place], [place] [phone] Professor In Family Studies: Cholo Alicea MD Chloride [Moles/Vol] 101 mmol/L Normal 98-107 [facility] Comment on above: Performed By: #### L IP, CDP, CP #### [facility] [address] [place] [address] Dr. [place], [place] 0657983 Professor In Family Studies: Cholo Alicea MD CO2 [Moles/Vol] 21 mmol/L Normal 20-31 [facility] Comment on above: Performed By: #### L IP, CDP, CP #### [address] [place] [address] Professor In Family Studies: Cholo Alicea MD Creatinine [Mass/Vol] 0.55 mg/dL Normal 0.50-0.90 [facility] Comment on above: Performed By: #### L IP, CDP, CP #### [facility] [address] [place] [address] Professor In Family Studies: Cholo Alicea MD GFR/1.73 sq M.predicted among non-blacks MDRD (S/P/Bld) [Vol rate/Area] mL/min/{1.73_m2} Normal >60 [facility] Comment on above: Result Comment: These [...] By: #### L IP, CDP, CP #### [facility] [address] [place], [place] 745[address]83 Professor In Family Studies: Cholo Alicea MD Glucose [Mass/Vol] 84 mg/dL Normal 70-99 [facility] Comment on above: Performed By: #### L IP, CDP, CP #### [facility] [address] [place], [place] 0530383 Professor In Family Studies: Cholo Alicea MD Potassium [Moles/Vol] 3.8 mmol/L Normal 3.7-5.3 [facility] Comment on above: Performed By: #### L IP, CDP, CP #### [facility] [address] [place] [address] Dr. [place], [place] [phone] Professor In Family Studies: Cholo Alicea MD Protein [Mass/Vol] 6.9 g/dL Normal 6.4-8.3 [facility] Comment on above: Performed By: #### L IP, CDP, CP #### [address] [place], [place] 9397383 Professor In Family Studies: Cholo Alicea MD Sodium [Moles/Vol] 135 mmol/L Normal 135-144 [facility] Comment on above: Performed By: #### L IP, CDP, CP #### [facility] [address] [place] [address] Dr. [place], [place] [phone] Professor In Family Studies: Cholo Alicea MD Urea nitrogen [Mass/Vol] 8 mg/dL Normal 6-20 [facility] Comment on above: Performed By: #### L IP, CDP, CP #### [facility] [address] [place] [address] [place] [address] Professor In Family Studies: Cholo Alicea MD Lipaseon 06-30-2022 Lipase [Catalytic activity/Vol] 30 U/L Normal 13-60 [facility] Comment on above: Performed By: #### L TATA LOPEZ, CP #### [facility] [address] [place] [address] [place] [address] Professor In Family Studies: Cholo Alicea MD Lipase [Catalytic activity/Vol] 30 U/L 13 - 60 U/L [facility] Microscopic Urinalysison Bacteria, UA 2+ Abnormal None [facility] Epithelial Cells UA 0 TO 2 [facility] Interpretation and review of laboratory results Abnormal [facility] Mucus, UA 3+ Abnormal None [facility] RBC clumps Auto (Urine sed) [#/Area] 0 TO 2 [facility] WBC, UA 0 TO 2 [facility] PTon 06-30-2022 INR Coag (PPP) [Relative time] 1.0 {INR} Normal [facility] Comment on above: Result Comment: Therapeutic Range: Moderate Anticoagulant Intensity: INR = 2.0-3.0 High Anticoagulant Intensity: INR = 2.5-3.5 Performed By: #### L TATA LOPEZ, CP #### [facility] [address] [place] [address] [place] [address] Professor In Family Studies: Cholo Alicea MD PT Coag (PPP) [Time] 13.3 s Normal 11.5-14.2 [facility] Comment on above: Performed By: #### L TATA LOPEZ, CP #### [facility] [address] [place] [address] [place] [address] Professor In Family Studies: Cholo Alicea MD Protime-INRon 06-30-2022 INR Coag (PPP) [Relative time] 1.0 {INR} [facility] Comment on above: Therapeutic Range: Moderate Anticoagulant Intensity: INR = 2.0-3.0 High Anticoagulant Intensity: INR = 2.5-3.5 PT Coag (PPP) [Time] 13.3 s [facility] UA w/Reflex Cultureon 2022 Bilirubin, SemiQt,Ur Negative Normal NEG [facility] Comment on above: Performed By: #### U MICAO, UAX #### [facility] [address] [place], [place] [id number] Professor In Family Studies: Cholo Alicea MD Blood, Urine Negative Normal NEG [facility] Comment on above: Performed By: #### U MICAO, UAX #### [facility] [address] [place], [place] [id number] Professor In Family Studies: Cholo Alicea MD Clarity (U) Clear Normal CLEAR [facility] Comment on above: Performed By: #### U MICAO, UAX #### [facility] [address] [place], [place] [phone] Professor In Family Studies: Cholo Alicea MD Color (U) Yellow Normal YEL [facility] Comment on above: Performed By: #### U MICAO, UAX #### [facility] [address] [place], [place] 5685583 Professor In Family Studies: Cholo Alicea MD Glucose Ql (U) Negative Normal NEG [facility] Comment on above: Performed By: #### U MICAO, UAX #### [facility] [address] [place], [place] 1389483 Professor In Family Studies: Cholo Alicea MD Ketones Ql (U) Negative Normal NEG [facility] Comment on above: Performed By: #### U MICAO, UAX #### [facility] [address] [place], [place] 1181183 Professor In Family Studies: Cholo Alicea MD Leukocyte esterase Test strip Ql (U) Negative Normal NEG [facility] Comment on above: Performed By: #### U MICAO, UAX #### [facility] [address] [place], [place] 9281183 Professor In Family Studies: Cholo Alicea MD Nitrite,Ur Negative Normal NEG [facility] Comment on above: Performed By: #### U MICAO, UAX #### [facility] [address] [place], [place] 1992283 Professor In Family Studies: Cholo Alicea MD PH,Ur 6.0 Normal 5.0-9.0 [facility] Comment on above: Performed By: #### U MICAO, UAX #### [facility] [address] [place] [address] Professor In Family Studies: Cholo Alicea MD Protein Ql (U) Negative Normal NEG [facility] Comment on above: Performed By: #### U MICAO, UAX #### [address] [place], [place] 1473883 Professor In Family Studies: Cholo Alicea MD Spec. [place],Ur 1.025 High 1.010-1.020 [facility] Comment on above: Performed By: #### U MICAO, UAX #### [address] [place], [place] 1383283 Professor In Family Studies: Cholo Alicea MD Urobilinogen,Ur Normal Normal NORM [facility] Comment on above: Performed By: #### U MICAO, UAX #### [facility] [address] [place] [address] Dr. [place], [facility]83 Professor In Family Studies: Cholo Alicea MD Urinalysis with Reflex to Cu ltureon 06-30-2022 Bilirubin Urine Negative NEGATIVE [facility] Color, UA Yellow Yellow [facility] Glucose Auto test strip (U) [Mass/Vol] Negative NEGATIVE [facility] Interpretation and review of laboratory results Abnormal [facility] Ketones (U) [Mass/Vol] Negative NEGATIVE [facility] Leukocyte esterase Auto test strip Ql (U) Negative NEGATIVE [facility] Nitrite Auto test strip Ql (U) Negative NEGATIVE [facility] Protein (U) [Mass/Vol] 6.0 mg/dL 5.0 - 9.0 [facility] Protein (U) [Mass/Vol] Negative NEGATIVE [facility] Specific [place], UA 1.025 High 1.010 - 1.020 [facility] Turbidity UA Clear Clear [facility] Urine Hgb Negative NEGATIVE [facility] Urobilinogen, Urine Normal Normal [facility] Urinalysis,Microon 3 Bacteria 2+ Abnormal [facility] Comment on above: Performed By: #### U MICAO, UAX #### [facility] [address] [place], [place] [id number] Professor In Family Studies: Cholo Alicea MD Epithelial cells LM Ql (Urine sed) 0 TO 2 Normal 0-25 [facility] Comment on above: Performed By: #### U MICAO, UAX #### [facility] [address] [place], [place] [id number] Professor In Family Studies: Cholo Alicea MD Mucus Strands 3+ Abnormal [facility] Comment on above: Performed By: #### U MICAO, UAX #### [facility] [address] [place], [place] [id number] Professor In Family Studies: Cholo Alicea MD Urine RBC's 0 TO 2 Normal 0-2 [facility] Comment on above: Performed By: #### U MICAO, UAX #### [facility] [address] [place], [place] [id number] Professor In Family Studies: Cholo Alicea MD Urine WBC's 0 TO 2 Normal 0-5 [facility] Comment on above: Performed By: #### U MICAO, UAX #### [facility] [address] [place] [address] Professor In Family Studies: Cholo Alicea MD No Panel Informationon 06-17 Body mass index (BMI) [Percentile] Per age and sex 0.1 {percentile} Invalid Interpretation Code [facility] [id number] Per age and sex 0.1 {percentile} Invalid Interpretation Code [facility] HEP B SURFACE ANTIGEN SCREEN on 06-08-2022 HBsAg Screen Negative Normal Negative [facility] Comment on above: Performed By: #### U ACSIND #### [facility] [address] [place] [address] Dr. Adrianna Caldera HEPATITIS C VIRUS AB W/ REFL EX QUANTon 06-08-2022 HCV AB <0.1 Normal 0.0-0.9 [facility] Comment on above: Performed By: #### U ACSIND #### [facility] [address] [place] [address] Dr. Adrianna Caldera Interpretation: Comment Normal [facility] Comment on above: Result Comment: Nega tive Not infected with HCV, unless recent infection is suspected or other evidence exists to indicate HCV infection. Performed By: #### U ACSIND #### [facility] [address] [place] [address] Dr. Adrianna Caldera HIV 1 AND 2 WITH REFLEXon HIV Screen 4th Generation wRfx Non-Reactive Normal Non Reactive [facility] Comment on above: Result Comment: HIV Negative HIV-1/HIV-2 antibodies and HIV-1 p24 antigen were NOT detected. There is no laboratory evidence of HIV infection. Performed By: #### U ACSIND #### [facility] [address] [place] [address] Dr. Adrianna Caldera RPR QUANTon 06-08-2022 Rapid Plasma Reagin, Quant Non-Reactive Normal NonRea<1:1 [facility] Comment on above: Result Comment: Plea se Note: This test does not meet current guidelines for screening and diagnosis of syphilis. This test is intended for following treatment response in patients being treated for syphilis infection. To screen for syphilis infection, a reflex cascade that includes both RPR and a treponema-specific assay should be utilized, such as Treponema pallidum (Syphilis) Screening [place] (462504) or Rapid Plasma Reagin (RPR) Test With Reflex to Quantitative RPR and Confirmatory Treponema pallidum Antibodies (796199). Performed By: #### U ACSIND #### [facility] [address] [address] [address] Adrianna Caldera RUBELLA AB IGGon 06-08-2022 Rubella Antibodies, IgG 4.69 index Normal Immu ne >0.99 [facility] Comment on above: Result Comment: Non- immune <0.90 Equivocal 0.90 - 0.99 Immune >0.99 Performed By: #### R UBIGG ####[facility] [id number] [address]Dr. Adrianna Caldera CBC AUTO DIFFon 06-05-2022 BASO # 0.0 103/ul Normal 0.0-0.1 [facility] Comment on above: Performed By: #### C BC #### [facility] [address] [place] [address] Dr. Adrianna Caldera Basophils/100 WBC (Bld) 0.3 % Normal 0.2-2.0 [facility] Comment on above: Performed By: #### C BC #### [facility] [address] [place] [address] Dr. Adrianna Caldera EO # 0.1 103/ul Normal 0.0-0.7 [facility] Comment on above: Performed By: #### C BC #### [facility] [address] [place] [address] Dr. Adrianna Caldera Eosinophils/100 WBC (Bld) 0.6 % Critically low 0.9-7.0 [facility] Comment on above: Performed By: #### C BC #### [facility] [address] [place] [address] Dr. Adrianna Caldera Erythrocyte distribution width (RBC) [Ratio] 11.7 % Normal 11.0-15.0 [facility] Comment on above: Performed By: #### C BC #### [facility] [address] [place] [address] Dr. Adrianna Caldera Hematocrit (Bld) [Volume fraction] 33.8 % Critically low 36.0-48.0 [facility] Comment on above: Performed By: #### C BC #### [facility] [address] [address] [address] Adrianna Caldera Hemoglobin (Bld) [Mass/Vol] 12.6 g/dL Normal 12.0-16.0 [facility] Comment on above: Performed By: #### C BC #### [facility] [address] [address] [address] Adrianna Caldera IG # 0.05 10e3/ul Critically high 0.00-0.03 [facility] Comment on above: Performed By: #### C BC #### [facility] [address] [place] [address] Dr. Adrianna Caldera IG % 0.4 % Normal 0.0-0.5 [facility] Comment on above: Performed By: #### C BC #### [facility] [address] [place] [address] Dr. Adrianna Caldera LYMPH # 2.4 103/ul Normal 1.2-3.8 [facility] Comment on above: Performed By: #### C BC #### [facility] [address] [place] [address] Dr. Adrianna Caldera Lymphocytes/100 WBC (Bld) 21.1 % Normal 20.5-60.0 [facility] Comment on above: Performed By: #### C BC #### [facility] [address] [place] [address] Dr. Adrianna Caldera MANUAL DIFF REQ NO Normal [facility] Comment on above: Performed By: #### C BC #### [facility] [address] [place] [address] Dr. Adrianna Caldera MCH (RBC) [Entitic mass] 30.3 pg Normal 26.7-34.0 [facility] Comment on above: Performed By: #### C BC #### [facility] [address] [place] [address] Dr. Adrianna Caldera MCHC (RBC) [Mass/Vol] 37.3 g/dL Critically high 29.9-35.2 [facility] Comment on above: Performed By: #### C BC #### [facility] [address] [address] [address] Adrianna Caldera MCV (RBC) [Entitic vol] 81.3 fL Normal 81.0-99.0 [facility] Comment on above: Performed By: #### C BC #### [facility] [address] [address] [address] Adrianna Caldera MONO # 0.6 103/ul Normal 0.3-0.8 [facility] Comment on above: Performed By: #### C BC #### [facility] [address] [place] [address] Dr. Adrianna Caldera Monocytes/100 WBC (Bld) 5.4 % Normal 1.7-12.0 [facility] Comment on above: Performed By: #### C BC #### [facility] [address] [place] [address] Dr. Adrianna Caldera NEUT # 8.3 103/ul Critically high 1.4-6.5 [facility] Comment on above: Performed By: #### C BC #### [facility] [address] [place] [address] Dr. Adrianna Caldera Neutrophils/100 WBC (Bld) 72.2 % Normal 43.0-75.0 [facility] Comment on above: Performed By: #### C BC #### [facility] [address] [place] [address] Dr. Adrianna Caldera Platelet mean volume (Bld) [Entitic vol] 10.6 fL Normal 9.5-13.5 [facility] Comment on above: Performed By: #### C BC #### [facility] [address] [place] [address] Dr. Adrianna Caldera PLT 253 103/ul Normal 150-450 [facility] Comment on above: Performed By: #### C BC #### [facility] [address] [place] [address] Dr. Adrianna Caldera RBC 4.16 106/ul Critically low 4.20-5.40 [facility] Comment on above: Performed By: #### C BC #### [facility] [address] [place] [address] Dr. Adrainna Caldera WBC 11.6 103/ul Critically high 4.0-11.0 [facility] Comment on above: Performed By: #### C BC #### [facility] [address] [address] [address] Adrianna Caldera CULTURE URINEon 06-05-2022 CULTURE URINE Culture Observations: LIGHT GROWTH OF MIXED GENITAL JIGAR. NO POTENTIAL PATHOGENS SEEN. Normal [facility] Comment on above: Performed By: #### U RCX ####[facility] [id number] [address]Dr. Adrianna Caldera GLYCOHEMOGLOBIN A1Con 2022 ADA RECOMMENDATION SEE BELOW Normal [facility] Comment on above: Result Comment: ADA RECOMMENDED LIMIT 4.0 - 6.0 ADA THERAPEUTIC TARGET < 7.0 ACTION SUGGESTED > 7.0 Performed By: #### P REGQNT #### [facility] [address] [address] [address] Adrianna Caldera Glucose [Mass/Vol] 105 mg/dL Normal [facility] Comment on above: Performed By: #### P REGQNT #### [facility] [address] [address] [address] Adrianna Caldera HbA1c (Bld) [Mass fraction] 5.3 % Normal 4.5-6.2 [facility] Comment on above: Performed By: #### P REGQNT #### [facility] [address] [address] [address] Adrianna Caldera TYPE AND SCREENon 06-05-2022 TYPE AND SCREEN Negative Normal [facility] Comment on above: Performed By: #### T NS ####[facility] [id number] [address]Dr. Adrianna Caldera US PREG <14 WKSon 05-27-2022 [...] by: GOVIND JOHNSTON Date: 2022-05-26 22:31 Normal [facility] CBC AUTO DIFFon 05-26-2022 BASO # 0.1 103/ul Normal 0.0-0.1 [facility] Comment on above: Performed By: #### U ACSIND #### [facility] [address] [address] [address] Adrianna Caldera Basophils/100 WBC (Bld) 0.5 % Normal 0.2-2.0 [facility] Comment on above: Performed By: #### U ACSIND #### [facility] [address] [address] [address] Adrianna Caldera EO # 0.1 103/ul Normal 0.0-0.7 [facility] Comment on above: Performed By: #### U ACSIND #### [facility] [address] [address] [address] Adrianna Caldera Eosinophils/100 WBC (Bld) 0.5 % Critically low 0.9-7.0 [facility] Comment on above: Performed By: #### U ACSIND #### [facility] [address] [address] [address] Adrianna Caldera Erythrocyte distribution width (RBC) [Ratio] 11.9 % Normal 11.0-15.0 [facility] Comment on above: Performed By: #### U ACSIND #### [facility] [address] [address] [address] Adrianna Caldera Hematocrit (Bld) [Volume fraction] 37.5 % Normal 36.0-48.0 [facility] Comment on above: Performed By: #### U ACSIND #### [facility] [address] [place] [address] Dr. Adrianna Caldera Hemoglobin (Bld) [Mass/Vol] 12.8 g/dL Normal 12.0-16.0 [facility] Comment on above: Performed By: #### U ACSIND #### [facility] [address] [place] [address] Dr. Adrianna Caldera IG # 0.04 10e3/ul Critically high 0.00-0.03 [facility] Comment on above: Performed By: #### U ACSIND #### [facility] [address] [place] [address] Dr. Adrianna Caldera IG % 0.4 % Normal 0.0-0.5 [facility] Comment on above: Performed By: #### U ACSIND #### [facility] [address] [place] [address] Dr. Adrianna Caldera LYMPH # 3.0 103/ul Normal 1.2-3.8 [facility] Comment on above: Performed By: #### U ACSIND #### [facility] [address] [place] [address] Dr. Adrianna Caldera Lymphocytes/100 WBC (Bld) 27.0 % Normal 20.5-60.0 [facility] Comment on above: Performed By: #### U ACSIND #### [facility] [address] [place] [address] Dr. Adrianna Caldera MANUAL DIFF REQ NO Normal [facility] Comment on above: Performed By: #### U ACSIND #### [facility] [address] [place] [address] Dr. Adrianna Caldera MCH (RBC) [Entitic mass] 29.8 pg Normal 26.7-34.0 [facility] Comment on above: Performed By: #### U ACSIND #### [facility] [address] [address] [address] Adrianna Caldera MCHC (RBC) [Mass/Vol] 34.1 g/dL Normal 29.9-35.2 [facility] Comment on above: Performed By: #### U ACSIND #### [facility] [address] [address] [address] Adrianna Caldera MCV (RBC) [Entitic vol] 87.4 fL Normal 81.0-99.0 [facility] Comment on above: Performed By: #### U ACSIND #### [facility] [address] [place] [address] Dr. Adrianna Caldera MONO # 0.7 103/ul Normal 0.3-0.8 [facility] Comment on above: Performed By: #### U ACSIND #### [facility] [address] [place] [address] Dr. Adrianna Caldera Monocytes/100 WBC (Bld) 6.3 % Normal 1.7-12.0 [facility] Comment on above: Performed By: #### U ACSIND #### [facility] [address] [place] [address] Dr. Adrianna Caldera NEUT # 7.2 103/ul Critically high 1.4-6.5 [facility] Comment on above: Performed By: #### U ACSIND #### [facility] [address] [place] [address] Dr. Adrianna Caldera Neutrophils/100 WBC (Bld) 65.3 % Normal 43.0-75.0 [facility] Comment on above: Performed By: #### U ACSIND #### [facility] [address] [address] [address] Adrianna Caldera Platelet mean volume (Bld) [Entitic vol] 10.3 fL Normal 9.5-13.5 [facility] Comment on above: Performed By: #### U ACSIND #### [facility] [address] [place], [place] [address] Dr. Adrianna Caldera PLT 316 103/ul Normal 150-450 [facility] Comment on above: Performed By: #### U ACSIND #### [facility] [address] [address] [address] Adrianna Caldera RBC 4.29 106/ul Normal 4.20-5.40 [facility] Comment on above: Performed By: #### U ACSIND #### [facility] [id number] Adrianna Caldera WBC 11.0 103/ul Normal 4.0-11.0 [facility] Comment on above: Performed By: #### U ACSIND #### [facility] [id number] Adrianna Caldera CT ABD/PELV W CONon [...] ISIDRO AVILA Date: 2022-05-26 19:39 Normal [facility] SARS-CoV-2 (COVID-19) RNA ALEKSANDER+probe Ql (Unsp spec) Not detected Normal NOT DETECTED [facility] Comment on above: Result Comment: When diagnostic [...] for this test is supported by the [place] of Health and Human Service's declaration that [...] used). Performed By: #### U ACSIND #### [facility] [address] [place] [address] Dr. Adrianna Caldera ER URINE PROFILEon 2 Bilirubin Ql (U) Negative Normal NEGATIVE [facility] Comment on above: Performed By: #### P REGQNT #### [facility] [address] [place] [address] Dr. Adrianna Caldera Clarity (U) CLEAR Normal CLEAR [facility] Comment on above: Performed By: #### P REGQNT #### [facility] [address] [place] [address] Dr. Adrianna Caldera Color (U) YELLOW Normal YELLOW [facility] Comment on above: Performed By: #### P REGQNT #### [facility] [address] [place] [address] Dr. Adrianna Caldera ERUAHD A micrscopic examination will be performed if indicated. Normal [facility] Comment on above: Performed By: #### P REGQNT #### [facility] [address] [place] [address] Dr. Adrianna Caldera Glucose Ql (U) Negative Normal NEGATIVE [facility] Comment on above: Performed By: #### P REGQNT #### [facility] [address] [place] [address] Dr. Adrianna Caldera Hemoglobin Ql (U) Negative Normal NEGATIVE [facility] Comment on above: Performed By: #### P REGQNT #### [facility] [address] [place] [address] Dr. Adrianna Caldera Ketones Ql (U) 15 mg/dl Abnormal NEGATIVE [facility] Comment on above: Performed By: #### P REGQNT #### [facility] [address] [place] [address] Dr. Adrianna Caldera LEUKOCYTES Negative Normal NEGATIVE [facility] Comment on above: Performed By: #### P REGQNT #### [facility] [address] [place] [address] Dr. Adrianna Caldera Nitrite Ql (U) Negative Normal NEGATIVE [facility] Comment on above: Performed By: #### P REGQNT #### [facility] [address] [place] [address] Dr. Adrianna Caldera pH (U) 7.5 [pH] Normal 5-9 [facility] Comment on above: Performed By: #### P REGQNT #### [facility] [address] [place] [address] Dr. Adrianna Caldera SPEC GRAVITY 1.020 Normal 1.005-<=1.0 25 [facility] Comment on above: Performed By: #### P REGQNT #### [facility] [address] [place] [address] Dr. Adiranna Caldera UA PROTEIN Negative Normal NEGATIVE/ TRACE [facility] Comment on above: Performed By: #### P REGQNT #### [facility] [address] [place] [address] Dr. Adrianna Caldera UR MICRO IND NOT INDICATED Normal [facility] Comment on above: Performed By: #### P REGQNT #### [facility] [address] [place] [address] Dr. Adrianna Caldera Urobilinogen Qn (U) 0.2 {Micheal'U}/dL Normal 0.2 - 1. 0 [facility] Comment on above: Performed By: #### P REGQNT #### [facility] [address] [place] [address] Dr. Adrianna Caldera LIPASEon 05-26-2022 Lipase [Catalytic activity/Vol] 116.0 U/L Normal 73.0-393.0 [facility] Comment on above: Performed By: #### L IPA, CMP #### [facility] [address] [place] [address] Dr. Adrianna Caldera PROF 14(COMP METB)on 022 Albumin [Mass/Vol] 3.6 g/dL Normal 3.4-5.0 [facility] Comment on above: Performed By: #### L IPA, CMP #### [facility] [address] [place] [address] Dr. Adrianna Caldera Albumin/Globulin [Mass ratio] 0.9 {ratio} Normal [facility] Comment on above: Performed By: #### L IPA, CMP #### [facility] [address] [place] [address] Dr. Adrianna Caldera ALP [Catalytic activity/Vol] 57 U/L Normal 46-116 [facility] Comment on above: Performed By: #### L IPA, CMP #### [facility] [address] [place] [address] Dr. Adrianna Caldera ALT [Catalytic activity/Vol] 13 U/L Critically low 14-59 [facility] Comment on above: Performed By: #### L IPA, CMP #### [facility] [address] [place] [address] Dr. Adrianna Caldera Anion gap [Moles/Vol] 10.6 mmol/L Normal [facility] Comment on above: Performed By: #### L IPA, CMP #### [facility] [address] [place] [address] Dr. Adrianna Caldera AST [Catalytic activity/Vol] 12 U/L Critically low 15-37 [facility] Comment on above: Performed By: #### L IPA, CMP #### [facility] [address] [address] [address] Adrianna Caldera Bilirubin [Mass/Vol] 0.2 mg/dL Normal 0.2-1.0 [facility] Comment on above: Performed By: #### L IPA, CMP #### [facility] [address] [address] [address] Adrianna Caldera Calcium [Mass/Vol] 8.9 mg/dL Normal 8.5-10.1 [facility] Comment on above: Performed By: #### L IPA, CMP #### [facility] [address] [address] [address] Adrianna Caldera Chloride [Moles/Vol] 102 mmol/L Normal 98-107 [facility] Comment on above: Performed By: #### L IPA, CMP #### [facility] [address] [place] [address] Dr. Adrianna Caldera CO2 [Moles/Vol] 26.0 mmol/L Normal 21.0-32.0 [facility] Comment on above: Performed By: #### L IPA, CMP #### [facility] [address] [place] [address] Dr. Adrianna Caldera Creatinine [Mass/Vol] 0.61 mg/dL Normal 0.55-1.02 [facility] Comment on above: Performed By: #### L IPA, CMP #### [facility] [address] [place] [address] Dr. Adrianna Caldera EGFR-AF GREEN[place]IC >60 Normal >=60 [facility] Comment on above: Performed By: #### L IPA, CMP #### [facility] [address] [place] [address] Dr. Adrianna Caldera EGFR-NON AF [place] >60 Normal >=60 [facility] Comment on above: Performed By: #### L IPA, CMP #### [facility] [address] [place] [address] Dr. Adrianna Caldera Globulin (S) [Mass/Vol] 3.8 g/dL Normal [facility] Comment on above: Performed By: #### L IPA, CMP #### [facility] [address] [address] [address] Adrianna Caldera Glucose [Mass/Vol] 82 mg/dL Normal 74-106 [facility] Comment on above: Performed By: #### L IPA, CMP #### [facility] [address] [place] [address] Dr. Adrianna Caldera Potassium [Moles/Vol] 3.6 mmol/L Normal 3.5-5.1 [facility] Comment on above: Performed By: #### L IPA, CMP #### [facility] [address] [place] [address] Dr. Adrianna Caldera Protein [Mass/Vol] 7.4 g/dL Normal 6.4-8.2 [facility] Comment on above: Performed By: #### L IPA, CMP #### [facility] [address] [place] [address] Dr. Adrianna Caldera Sodium [Moles/Vol] 135 mmol/L Critically low 136-145 [facility] Comment on above: Performed By: #### L IPA, CMP #### [facility] [address] [place] [address] Dr. Adrianna Caldera Urea nitrogen [Mass/Vol] 9.0 mg/dL Normal 7.0-18.0 [facility] Comment on above: Performed By: #### L IPA, CMP #### [facility] [address] [place] [address] Dr. Adrianna Caldera Urea nitrogen/Creatinine [Mass ratio] 14.8 mg/mg Normal [facility] Comment on above: Performed By: #### L IPA, CMP #### [facility] [address] [place] [address] Dr. Adrianna Caldera No Panel Informationon 05-17 Body mass index (BMI) [Percentile] Per age and sex 0.1 {percentile} Invalid Interpretation Code [facility] [id number] Per age and sex 0.1 {percentile} Invalid Interpretation Code [facility] US PREG TVon 05-01-2022 US PREG TV [...] by: KAROL SIDDIQUI Date: 2022-04-30 22:06 Normal [facility] US PREG TVon 04-08-2022 US PREG TV [...] by: KAROL SIDDIQUI Date: 2022-04-08 17:08 Normal [facility] US PELVIS TRANSVAGon 03-23-2 022 US PELVIS TRANSVAG EXAM: US PELVIS [...] CINDY NOGUEIRA Date: 2022-03-22 22:47 Normal [facility] CBC AUTO DIFFon 03-22-2022 BASO # 0.1 103/ul Normal 0.0-0.1 [facility] Comment on above: Performed By: #### U ACSIND #### [facility] [address] [address] [address] Adrianna Caldera Basophils/100 WBC (Bld) 0.5 % Normal 0.2-2.0 [facility] Comment on above: Performed By: #### U ACSIND #### [facility] [address] [place] [address] Dr. Adrianna Caldera EO # 0.1 103/ul Normal 0.0-0.7 [facility] Comment on above: Performed By: #### U ACSIND #### [facility] [address] [address] [address] Adrianna Caldera Eosinophils/100 WBC (Bld) 0.6 % Critically low 0.9-7.0 [facility] Comment on above: Performed By: #### U ACSIND #### [facility] [address] [place] [address] Dr. Adrianna Caldera Erythrocyte distribution width (RBC) [Ratio] 12.6 % Normal 11.0-15.0 [facility] Comment on above: Performed By: #### U ACSIND #### [facility] [address] [place] [address] Dr. Adrianna Caldera Hematocrit (Bld) [Volume fraction] 40.0 % Normal 36.0-48.0 [facility] Comment on above: Performed By: #### U ACSIND #### [facility] [address] [place] [address] Dr. Adrianna Caldera Hemoglobin (Bld) [Mass/Vol] 13.6 g/dL Normal 12.0-16.0 [facility] Comment on above: Performed By: #### U ACSIND #### [facility] [address] [address] [address] Adrianna Caldera IG # 0.03 10e3/ul Normal 0.00-0.03 [facility] Comment on above: Performed By: #### U ACSIND #### [facility] [address] [address] [address] Adrianna Caldera IG % 0.3 % Normal 0.0-0.5 [facility] Comment on above: Performed By: #### U ACSIND #### [facility] [address] [address] [address] Adrianna Caldera LYMPH # 4.4 103/ul Critically high 1.2-3.8 [facility] Comment on above: Performed By: #### U ACSIND #### [facility] [address] [place] [address] Dr. Adrianna Caldera Lymphocytes/100 WBC (Bld) 38.4 % Normal 20.5-60.0 [facility] Comment on above: Performed By: #### U ACSIND #### [facility] [address] [address] [address] Adrianna Caldera MANUAL DIFF REQ NO Normal [facility] Comment on above: Performed By: #### U ACSIND #### [facility] [address] [address] [address] Adrianna Caldera MCH (RBC) [Entitic mass] 30.2 pg Normal 26.7-34.0 [facility] Comment on above: Performed By: #### U ACSIND #### [facility] [address] [address] [address] Adrianna Caldera MCHC (RBC) [Mass/Vol] 34.0 g/dL Normal 29.9-35.2 [facility] Comment on above: Performed By: #### U ACSIND #### [facility] [address] [address] [address] Adrianna Caldera MCV (RBC) [Entitic vol] 88.9 fL Normal 81.0-99.0 [facility] Comment on above: Performed By: #### U ACSIND #### [facility] [address] [address] [address] Adrianna Caldera MONO # 0.7 103/ul Normal 0.3-0.8 [facility] Comment on above: Performed By: #### U ACSIND #### [facility] [address] [place] [address] Dr. Adrianna Caldera Monocytes/100 WBC (Bld) 6.2 % Normal 1.7-12.0 [facility] Comment on above: Performed By: #### U ACSIND #### [facility] [address] [address] [address] Adrianna Caldera NEUT # 6.1 103/ul Normal 1.4-6.5 [facility] Comment on above: Performed By: #### U ACSIND #### [facility] [address] [place] [address] Dr. Adrianna Caldera Neutrophils/100 WBC (Bld) 54.0 % Normal 43.0-75.0 [facility] Comment on above: Performed By: #### U ACSIND #### [facility] [address] [place] [address] Dr. Adrianna Caldera Platelet mean volume (Bld) [Entitic vol] 10.9 fL Normal 9.5-13.5 [facility] Comment on above: Performed By: #### U ACSIND #### [facility] [address] [place] [address] Dr. Adrianna Caldera PLT 277 103/ul Normal 150-450 [facility] Comment on above: Performed By: #### U ACSIND #### [facility] [address] [place] [address] Dr. Adrianna Caldera RBC 4.50 106/ul Normal 4.20-5.40 [facility] Comment on above: Performed By: #### U ACSIND #### [facility] [address] [place] [address] Dr. Adrianna Caldera WBC 11.3 103/ul Critically high 4.0-11.0 [facility] Comment on above: Performed By: #### U ACSIND #### [facility] [address] [place] [address] Dr. Adrianna RHODES URINE PROFILEon 2 Bilirubin Ql (U) Negative Normal NEGATIVE [facility] Comment on above: Performed By: #### P REGU, ERUR ####[facility] [address] [place], [place] [address]Dr. Adrianna Caldera Clarity (U) CLEAR Normal CLEAR [facility] Comment on above: Performed By: #### P REGU, ERUR ####[facility] [address] [place], [place] [address]Dr. Adrianna Caldera Color (U) LT. YELLOW Normal YELLOW [facility] Comment on above: Performed By: #### P REGU, ERUR ####[facility] [address] [place], [place] [address]Dr. Adrianna LINARES A micrscopic examination will be performed if indicated. Normal [facility] Comment on above: Performed By: #### P REGU, ERUR ####[facility] [address] [place], [place] [address]Dr. Adrianna Caldera Glucose Ql (U) Negative Normal NEGATIVE [facility] Comment on above: Performed By: #### P REGU, ERUR ####[facility] [address] [place], [place] [address]Dr. Adrianna Caldera Hemoglobin Ql (U) Negative Normal NEGATIVE [facility] Comment on above: Performed By: #### P REGU, ERUR ####[facility] [address] [place], [place] [address]Dr. Adrianna Caldera Ketones Ql (U) Negative Normal NEGATIVE [facility] Comment on above: Performed By: #### P REGU, ERUR ####[facility] [address] [place], [place] [address]Dr. Adrianna Caldera LEUKOCYTES Negative Normal NEGATIVE [facility] Comment on above: Performed By: #### P REGU, ERUR ####[facility] [address] [place], [place] [address]Dr. Adrianna Caldera Nitrite Ql (U) Negative Normal NEGATIVE [facility] Comment on above: Performed By: #### P REGU, ERUR ####[facility] [address] [id number]. Adrianna Caldera pH (U) 6.0 [pH] Normal 5-9 [facility] Comment on above: Performed By: #### P BASSEMU, ERUR ####[facility] [address] [id number]. Adrianna Caldera SPEC GRAVITY <=1.005 Abnormal 1.005-<=1.0 25 [facility] Comment on above: Performed By: #### P BASSEMU, ERUR ####[facility] [address] [address]Dr. Adrianna Caldera UA PROTEIN Negative Normal NEGATIVE/ TRACE [facility] Comment on above: Performed By: #### P BASSEMU, ERUR ####[facility] [address] [address]Dr. Adrianna Caldera UR MICRO IND NOT INDICATED Normal [facility] Comment on above: Performed By: #### P BASSEMU, ERUR ####[facility] [address] [address]Dr. Adrianna Caldera Urobilinogen Qn (U) 0.2 {Micheal'U}/dL Normal 0.2 - 1. 0 [facility] Comment on above: Performed By: #### P BASSEMU, ERUR ####[facility] [address] [address]Dr. Adrianna Caldera PREG QUANT HCGon 03-22-2022 HCG QUANT 2 mIU/mL Normal [facility] Comment on above: Performed By: #### P REGQNT #### [facility] [address] [address] [address] Adrianna Caldera HCG RANGE SEE BELOW Normal [facility] Comment on above: Result Comment: 5-50 0.2-1 WEEK 50-500 1-2 WEEKS 100-5,000 2-3 WEEKS 500-10,000 3-4 WEEKS 1,000-50,000 4-5 WEEKS 10,000-100,000 5-6 WEEKS 15,000-200,000 6-8 WEEKS 10,000-100,000 2-3 MONTHS Performed By: #### P REGQNT #### [facility] [address] [address] [address] Adrianna Caldera URon 03-22-2022 , QUAL Negative Normal NEGATIVE [facility] Comment on above: Performed By: #### P REGU, ERUR ####[facility] [address] [place], [place] [address]PgDr. Adrianna Caldera PROF CHEM 8 (BAS METB)on Anion gap [Moles/Vol] 10.9 mmol/L Normal [facility] Comment on above: Performed By: #### U ACSIND #### [facility] [address] [address] [address] Adrianna Caldera Calcium [Mass/Vol] 9.1 mg/dL Normal 8.5-10.1 [facility] Comment on above: Performed By: #### U ACSIND #### [facility] [address] [address] [address] Adrianna Caldera Chloride [Moles/Vol] 105 mmol/L Normal 98-107 [facility] Comment on above: Performed By: #### U ACSIND #### [facility] [address] [address] [address] Adrianna Caldera CO2 [Moles/Vol] 26.0 mmol/L Normal 21.0-32.0 [facility] Comment on above: Performed By: #### U ACSIND #### [facility] [address] [address] [address] Adrianna Caldera Creatinine [Mass/Vol] 0.98 mg/dL Normal 0.55-1.02 [facility] Comment on above: Performed By: #### U ACSIND #### [facility] [address] [address] [address] Adrianna Caldera EGFR-AF GREENLANDIC >60 Normal >=60 [facility] Comment on above: Performed By: #### U ACSIND #### [facility] [address] [address] [address] Adrianna Caldera EGFR-NON AF GREENLANDIC >60 Normal >=60 [facility] Comment on above: Performed By: #### U ACSIND #### [facility] [address] [address] [address] Adrianna Caldera Glucose [Mass/Vol] 87 mg/dL Normal 74-106 [facility] Comment on above: Performed By: #### U ACSIND #### [facility] [address] [address] [address] Adrianna Caldera Potassium [Moles/Vol] 3.9 mmol/L Normal 3.5-5.1 [facility] Comment on above: Performed By: #### U ACSIND #### [facility] [address] [address] [address] Adrianna Caldera Sodium [Moles/Vol] 138 mmol/L Normal 136-145 [facility] Comment on above: Performed By: #### U ACSIND #### [facility] [address] [address] [address] Adrianna Caldera Urea nitrogen [Mass/Vol] 11.0 mg/dL Normal 7.0-18.0 [facility] Comment on above: Performed By: #### U ACSIND #### [facility] [address] [address] [address] Adrianna Caldera Urea nitrogen/Creatinine [Mass ratio] 11.2 mg/mg Normal [facility] Comment on above: Performed By: #### U ACSIND #### [facility] [address] [address] [address] Adrianna Caldera PREG QUANT HCGon 03-03-2022 HCG QUANT 1 mIU/mL Normal [facility] Comment on above: Performed By: #### P REGQNT #### [facility] [address] [address] [address] Adrianna Caldera HCG RANGE SEE BELOW Normal [facility] Comment on above: Result Comment: 5-50 0.2-1 WEEK 50-500 1-2 WEEKS 100-5,000 2-3 WEEKS 500-10,000 3-4 WEEKS 1,000-50,000 4-5 WEEKS 10,000-100,000 5-6 WEEKS 15,000-200,000 6-8 WEEKS 10,000-100,000 2-3 MONTHS Performed By: #### P REGQNT #### [facility] [address] [address] [address] Adrianna Caldera Creatinine and Glomerular fi ltration rate.predicted panel (S/P/Bld)Ordered By: Tae Natarajan on 02-10-2022 Creatinine [Mass/Vol] 1.03 mg/dL 0.44-1.03 [facility] Estimated glomerular filtrat ion rate (GFR) non- AmericanOrdered By: Tae Natarajan on 02-10-2022 GFR/1.73 sq M.predicted among non-blacks MDRD (S/P/Bld) [Vol rate/Area] > 60 mL/Min [facility] HCG ( test) IA.rapi d Ql (U)Ordered By: Tae Natarajan on 02-10-2022 HCG ( test) Ql (U) Negative [facility] No Panel InformationOrdered By: Tae Natarajan on 02-10-2022 Estimated GFR () > 60 mL/Min [facility] Comment on above: GFR estimated refere nce range: According to KDOQI guidelines, <60 ml/min/1.73m2 is sufficient to diagnose a patient with chronic kidney disease. Pharmacy Creatinine Clearance (Chem 88.89 [facility] Serum or plasma urea nitroge n measurement (mass/volume)Ordered By: Tae Natarajan on 02-10-2022 Urea nitrogen [Mass/Vol] 9 mg/dL 02-19 [facility] PREG QUANT HCGon 12-04-2021 HCG QUANT <1 Normal [facility] Comment on above: Performed By: #### P REGQNT #### [facility] [address] [address] [address] Adrianna Caldera HCG RANGE SEE BELOW Normal [facility] Comment on above: Result Comment: 5-50 0-1 WEEK 40-300 1-2 WEEKS 100-1,000 2-3 WEEKS 500-6,000 3-4 WEEKS 5,000-200,000 1-2 MONTHS 10,000-100,000 2-3 MONTHS 3,000-50,000 2ND TRIMESTER 1,000-50,000 3RD TRIMESTER Performed By: #### P REGQNT #### [facility] [address] [place], [place] [address] Dr. Adrianna Caldera CBC AUTO DIFFon 11-14-2021 BASO # 0.1 103/ul Normal 0.0-0.1 [facility] Comment on above: Performed By: #### C BC ####[facility] [address] [id number] Caldera Basophils/100 WBC (Bld) 0.5 % Normal 0.2-2.0 [facility] Comment on above: Performed By: #### C BC ####[facility] [address] [address]Dr. Adrianna Caldera EO # 0.1 103/ul Normal 0.0-0.7 [facility] Comment on above: Performed By: #### C BC ####[facility] [address] [address]DrAung Caldera Eosinophils/100 WBC (Bld) 0.8 % Critically low 0.9-7.0 [facility] Comment on above: Performed By: #### C BC ####[facility] [address] [place], [place] [address]DrAung Caldera Erythrocyte distribution width (RBC) [Ratio] 13.0 % Normal 11.0-15.0 [facility] Comment on above: Performed By: #### C BC ####[facility] [address] [address]DrAung Caldera Hematocrit (Bld) [Volume fraction] 38.5 % Normal 36.0-48.0 [facility] Comment on above: Performed By: #### C BC ####[facility] [address] [address]DrAung Caldera Hemoglobin (Bld) [Mass/Vol] 12.9 g/dL Normal 12.0-16.0 [facility] Comment on above: Performed By: #### C BC ####[facility] [address] [place], [place] [address]DrAung Caldera IG # 0.03 10e3/ul Normal 0.00-0.03 [facility] Comment on above: Performed By: #### C BC ####[facility] [address] [address]Dr. Jemimabenito Caldera IG % 0.3 % Normal 0.0-0.5 [facility] Comment on above: Performed By: #### C BC ####[facility] [address] [address]DrAung Caldera LYMPH # 2.8 103/ul Normal 1.2-3.8 [facility] Comment on above: Performed By: #### C BC ####[facility] [address] [address]DrAung Jemimabenito Caldera Lymphocytes/100 WBC (Bld) 27.4 % Normal 20.5-60.0 [facility] Comment on above: Performed By: #### C BC ####[facility] [address] [address]DrAung Caldera MANUAL DIFF REQ NO Normal [facility] Comment on above: Performed By: #### C BC ####[facility] [address] [id number]. Adrianna Werner MCH (RBC) [Entitic mass] 29.7 pg Normal 26.7-34.0 [facility] Comment on above: Performed By: #### C BC ####[facility] [address] [place], [place] [address]Dr. Jemimabenito Caldera MCHC (RBC) [Mass/Vol] 33.5 g/dL Normal 29.9-35.2 [facility] Comment on above: Performed By: #### C BC ####[facility] [address] [place], [place] [id number] Caldera MCV (RBC) [Entitic vol] 88.7 fL Normal 81.0-99.0 [facility] Comment on above: Performed By: #### C BC ####[facility] [address] [id number] Caldera MONO # 0.7 103/ul Normal 0.3-0.8 [facility] Comment on above: Performed By: #### C BC ####[facility] [address] [address]Dr. Adrianna Caldera Monocytes/100 WBC (Bld) 6.5 % Normal 1.7-12.0 [facility] Comment on above: Performed By: #### C BC ####[facility] [address] [id number]. Adrianna Caldera NEUT # 6.5 103/ul Normal 1.4-6.5 [facility] Comment on above: Performed By: #### C BC ####[facility] [address] [address]Dr. Adrianna Caldera Neutrophils/100 WBC (Bld) 64.5 % Normal 43.0-75.0 [facility] Comment on above: Performed By: #### C BC ####[facility] [address] [place], [place] [address]Dr. Adrianna Caldera Platelet mean volume (Bld) [Entitic vol] 10.4 fL Normal 9.5-13.5 [facility] Comment on above: Performed By: #### C BC ####[facility] [address] [place], [place] [address]Dr. Adrianna Caldera PLT 324 103/ul Normal 150-450 [facility] Comment on above: Performed By: #### C BC ####[facility] [address] [address]Dr. Adrianna Caldera RBC 4.34 106/ul Normal 4.20-5.40 [facility] Comment on above: Performed By: #### C BC ####[facility] [address] [id number]. Adrianna Caldera WBC 10.1 103/ul Normal 4.0-11.0 [facility] Comment on above: Performed By: #### C BC ####[facility] [address] [id number]. Adrianna Caldera ER URINE PROFILEon 2 Bilirubin Ql (U) Negative Normal NEGATIVE [facility] Comment on above: Performed By: #### E RUR, PREGU, UMICRO ####[facility] [address] [address]Dr. Adrianna Caldera Clarity (U) CLEAR Normal CLEAR [facility] Comment on above: Performed By: #### E RUR, PREGU, UMICRO ####[facility] [address] [address]Dr. Adrianna Caldera Color (U) LT. YELLOW Normal YELLOW [facility] Comment on above: Performed By: #### E RUR, PREGU, UMICRO ####[facility] [address] [address]Dr. Adrianna GOLDBERGAHD A micrscopic examination will be performed if indicated. Normal [facility] Comment on above: Performed By: #### E RUR, PREGU, UMICRO ####[facility] [address] [address]Dr. Adrianna Caldera Glucose Ql (U) Negative Normal NEGATIVE [facility] Comment on above: Performed By: #### E RUR, PREGU, UMICRO ####[facility] [address] [address]Dr. Adrianna Caldera Hemoglobin Ql (U) LARGE Abnormal NEGATIVE [facility] Comment on above: Performed By: #### E RUR, PREGU, UMICRO ####[facility] [address] [address]Dr. Adrianna Caldera Ketones Ql (U) Negative Normal NEGATIVE [facility] Comment on above: Performed By: #### E RUR, PREGU, UMICRO ####[facility] [address] [address]Dr. Adrianna Caldera LEUKOCYTES Negative Normal NEGATIVE [facility] Comment on above: Performed By: #### E RUR, PREGU, UMICRO ####[facility] [address] [address]Dr. Adrianna Caldera Nitrite Ql (U) Negative Normal NEGATIVE [facility] Comment on above: Performed By: #### E RUR, PREGU, UMICRO ####[facility] [address] [address]Dr. Adrianna Caldera pH (U) 6.5 [pH] Normal 5-9 [facility] Comment on above: Performed By: #### E RUR, PREGU, UMICRO ####[facility] [address] [address]Dr. Adrianna Caldera SPEC GRAVITY 1.015 Normal 1.005-<=1.0 25 [facility] Comment on above: Performed By: #### E RUR, PREGU, UMICRO ####[facility] [address] [address]Dr. Adrianna Caldera UA PROTEIN Negative Normal NEGATIVE/ TRACE [facility] Comment on above: Performed By: #### E RUR, PREGU, UMICRO ####[facility] [address] [address]Dr. Adrianna Caldera UR MICRO IND INDICATED Normal [facility] Comment on above: Performed By: #### E RUR, PREGU, UMICRO ####[facility] [address] [address]Dr. Adrianna Caldera Urobilinogen Qn (U) 0.2 {Micheal'U}/dL Normal 0.2 - 1. 0 [facility] Comment on above: Performed By: #### E RUR, PREGU, UMICRO ####[facility] [address] [address]Dr. Adrianna Caldera URon 11-14-2021 , QUAL Negative Normal NEGATIVE [facility] Comment on above: Performed By: #### E RUR, PREGU, UMICRO ####[facility] [address] [address]DrAung Caldera PROF CHEM 8 (BAS METB)on Anion gap [Moles/Vol] 13.5 mmol/L Normal [facility] [place] Comment on above: Performed By: #### U ACSIND #### [facility] [address] [address] [address] Adrianna Caldera Calcium [Mass/Vol] 8.7 mg/dL Normal 8.5-10.1 [facility] Comment on above: Performed By: #### U ACSIND #### [facility] [address] [address] [address] Adrianna Caldera Chloride [Moles/Vol] 102 mmol/L Normal 98-107 [facility] Comment on above: Performed By: #### U ACSIND #### [facility] [address] [address] [address] Adrianna Caldera CO2 [Moles/Vol] 27.3 mmol/L Normal 21.0-32.0 [facility] Comment on above: Performed By: #### U ACSIND #### [facility] [address] [address] [address] Adrianna Caldera Creatinine [Mass/Vol] 0.85 mg/dL Normal 0.55-1.02 [facility] Comment on above: Performed By: #### U ACSIND #### [facility] [address] [address] [address] Adrianna Caldera EGFR-AF GREENLANDIC >60 Normal >=60 [facility] Comment on above: Performed By: #### U ACSIND #### [facility] [address] [address] [address] Adrianna Caldera EGFR-NON AF GREENLANDIC >60 Normal >=60 [facility] Comment on above: Performed By: #### U ACSIND #### [facility] [address] [address] [address] Adrianna Caldera Glucose [Mass/Vol] 104 mg/dL Normal 74-106 [facility] Comment on above: Performed By: #### U ACSIND #### [facility] [address] [address] [address] Adrianna Caldera Potassium [Moles/Vol] 3.8 mmol/L Normal 3.5-5.1 [facility] Comment on above: Performed By: #### U ACSIND #### [facility] [address] [address] [address] Adrianna Caldera Sodium [Moles/Vol] 139 mmol/L Normal 136-145 [facility] Comment on above: Performed By: #### U ACSIND #### [facility] [address] [address] [address] Adrianna Caldera Urea nitrogen [Mass/Vol] 8.0 mg/dL Normal 7.0-18.0 [facility] Comment on above: Performed By: #### U ACSIND #### [facility] [address] [address] [address] Adrianna Caldera Urea nitrogen/Creatinine [Mass ratio] 9.4 mg/mg Normal [facility] Comment on above: Performed By: #### U ACSIND #### [facility] [address] [address] [address] Adrianna Caldera URINE MICROSCOPIC ONLYon BACTERIA NONE SEEN Normal NONE SEEN [facility] Comment on above: Performed By: #### E RUR, PREGU, UMICRO ####[facility] [address] [address]Dr. Adrianna Caldera Bacteria identified Cx Nom (U) NOT INDICATED Normal [facility] Comment on above: Performed By: #### E RUR, PREGU, UMICRO ####[facility] [address] [address]Dr. Adrianna Caldera CAST NONE SEEN Normal NONE SEEN [facility] Comment on above: Performed By: #### E RUR, PREGU, UMICRO ####[facility] [address] [address]Dr. Adrianna Caldera Crystals LM Nom (Urine sed) NONE SEEN Normal NONE SEEN [facility] Comment on above: Performed By: #### E RUR, PREGU, UMICRO ####[facility] [address] [address]Dr. Adrianna Caldera Epithelial cells LM Ql (Urine sed) RARE Normal NONE SEEN /RARE [facility] Comment on above: Performed By: #### E RUR, PREGU, UMICRO ####[facility] [address] [address]Dr. Adrianna Caldera MUCOUS NONE SEEN Normal NONE SEEN [facility] Comment on above: Performed By: #### E RUR, PREGU, UMICRO ####[facility] [address] [place], [place] [address]Yp. Adrianna Caldera RBC 10-20 Abnormal 0-2 [facility] Comment on above: Performed By: #### E RUR, PREGU, UMICRO ####[facility] [address] [place], [place] [address]If. Adrianna Caldera WBC 0-2 Abnormal NONE SEEN [facility] Comment on above: Performed By: #### E RUR, PREGU, UMICRO ####[facility] [address] [place], [place] [address]Mk. Adrianna Caldera HCG, Quantitative, on 10-12-2021 hCG Quant <1 <5 mIU/mL [facility] Comment on above: Non-preg premeno <=5 Postmeno <=8 Male <=3 If HCG results do not concur with clinical observations, additional testing to confirm results is recommended. Elevated results not associated with may be found in patients with other diseases such as tumors of the germ cells (testis, ovaries, etc.), bladder, pancreas, stomach, lungs, and liver. [facility] CBC with Auto Differentialon 10-11-2021 Absolute Eos # 0.08 [facility] Absolute Immature Granulocyte <0.03 [facility] Absolute Lymph # 1.85 [facility] alth Absolute [place] # 0.56 [facility] Basophils (Bld) [#/Vol] 0.04 10*3/uL [facility] Basophils/100 WBC (Bld) 1 % 0 - 2 % [facility] Eosinophils/100 WBC (Bld) 1 % 1 - 4 % [facility] Hematocrit (Bld) [Volume fraction] 38.9 % 36.3 - 47.1 % [facility] Hemoglobin.gastrointest inal spec 1 Ql (Stl) 12.7 g/dL 11.9 - 15.1 g/dL [facility] Immature granulocytes/100 WBC (Bld) 0 % 0 [facility] Lymphocytes/100 WBC (Bld) 29 % 24 - 43 % [facility] MCH (RBC) [Entitic mass] 29.7 pg 25.2 - 33.5 pg [facility] MCHC (RBC) [Mass/Vol] 32.6 g/dL 28.4 - 34.8 g/dL [facility] MCV (RBC) [Entitic vol] 90.9 fL 82.6 - 102.9 fL [facility] Monocytes/100 WBC (Bld) 9 % 3 - 12 % M [facility] NRBC Automated 0.0 0.0 per 100 WBC [facility] Platelet distribution width (Bld) [Ratio] 12.9 % 11.8 - 14.4 % [facility] Platelet mean volume (Bld) [Entitic vol] 10.3 fL 8.1 - 13.5 fL [facility] Platelets (Bld) [#/Vol] 351 10*3/uL [facility] RBC (Bld) [#/Vol] 4.28 10*6/uL 3.95 - 5.1 1 m/uL [facility] Segmented neutrophils/100 WBC (Bld) 60 % 36 - 65 % [facility] Segs Absolute 3.90 [facility] WBC (Bld) [#/Vol] 6.5 10*3/uL [facility] CT ABDOMEN PELVIS W IV CONTR AST [...] No hydronephrosis. Gallbladder is not remarkable. GI/Bowel: Ilwv-ac-bugzkvqy retained stool without bowel obstruction. No pericecal inflammatory changes. Appendix unremarkable. Pelvis: There is mild prominence endometrial canal 7 mm. This may related to phase of menstrual cycle. Please correlate exam findings and history. No suspicious adnexal mass. Bladder remarkable. Peritoneum/Retroperi toneum: Trace free fluid dependent pelvis. No free air. No suspicious adenopathy. Bones/Soft Tissues: No suspicious osseous lesion [facility] Ashutosh Omalley MD - 10/11/2021 EXAMINATION: CT [...] No hydronephrosis. Gallbladder is not remarkable. GI/Bowel: Ysyy-co-hnslzuzo retained stool without bowel obstruction. No pericecal [...] Negative acute inflammatory process or bowel obstruction. [employer] Work Phone: Radiology Study observation (narrative) [employer] Work Phone: CT ABDOMEN PELVIS W IV CONTR AST Additional Contrast? NoneOrdered By: Ashutosh Omalley on 10-11-2021 [employer] Work Phone: Comprehensive Metabolic Pane l w/ Reflex to MGon 10-11-2021 Albumin [Mass/Vol] 4.3 g/dL 3.5 - 5.2 g/dL [facility] Albumin/Globulin [Mass ratio] 1.7 {ratio} [facility] ALP (Bld) [Catalytic activity/Vol] 73 U/L 35 - 104 U/L [facility] ALT [Catalytic activity/Vol] 21 U/L 5 - 33 U/L [facility] Anion gap [Moles/Vol] 7 mmol/L Low 9 - 17 mmol/L [facility] AST [Catalytic activity/Vol] 15 U/L <32 [facility] Bilirubin [Mass/Vol] 0.25 mg/dL Low 0.3 - 1 .2 mg/dL [facility] Calcium [Mass/Vol] 9.1 mg/dL 8.6 - 10. 4 mg/dL [facility] Chloride [Moles/Vol] 105 mmol/L 98 - 10 7 mmol/L [facility] CO2 [Moles/Vol] 26 mmol/L 20 - 31 mmol/L [facility] Creatinine [Mass/Vol] 0.75 mg/dL 0.50 - 0.90 mg/dL [facility] Free PSA/Total PSA [Mass fraction] 6.8 g/dL 6.4 - 8.3 g/dL [facility] GFR >60 >60 mL/min [facility] GFR Non- >60 >60 mL/min [facility] Glucose [Mass/Vol] 116 mg/dL High 70 - 99 mg/dL [facility] Interpretation and review of laboratory results Abnormal [facility] Potassium [Moles/Vol] 3.9 mmol/L 3.7 - 5.3 mmol/L [facility] Sodium [Moles/Vol] 138 mmol/L 135 - 144 mmol/L [facility] Urea nitrogen (BldV) [Mass/Vol] 9 mg/dL 6 - 20 mg/dL [facility] Urea nitrogen/Creatinine (Bld) [Mass ratio] 12 [facility] Laboratory - Chemistry and C hemistry - challengeon 10-11-2021 GFR/1.73 sq M.predicted MDRD (S/P/Bld) [Vol rate/Area] [facility] Comment on above: Average GFR for 20-2 9 years old: 116 mL/min/1.73sq m Chronic Kidney Disease: <60 mL/min/1.73sq m Kidney failure: <15 mL/min/1.73sq m eGFR calculated using average adult body mass. Additional eGFR calculator available at: http://www.[employer].Izzy Money/multiple_crcl_2012.htm Stage 1: Some kidney damage normal GFR Stage 2: Mild kidney damage GFR 60-89 Stage 3: Moderate kidney damage GFR 30-59 Stage 4: Severe kidney damage GFR 15-29 Stage 5: Severe kidney damage GFR <15 ESRD - chronic treatment by dialysis or transplant Lipaseon 10-11-2021 Lipase [Catalytic activity/Vol] 39 U/L 13 - 60 U/L [facility] Microscopic Urinalysison - [facility] Bacteria, UA TRACE Abnormal None [facility] Crystals, UA 2 TO 5 CALCIUM OXALATE Abnormal None /HPF [facility] Epithelial Cells UA 2 TO 5 [facility] Interpretation and review of laboratory results Abnormal [facility] RBC, UA 2 TO 5 [facility] WBC, UA 0 TO 2 [facility] No Panel Informationon 10-11 [facility] , Urineon Beta HCG ( test) Ql (U) Negative NEGATIVE [facility] Comment on above: Specimens with hCG l evels near the threshold of the test (25 mIU/mL) may give a negative or indeterminate result. In such cases, another test should be performed with a new specimen in 48-72 hours. If early is suspected clinically in this setting, correlation with quantitative serum b-hCG level is suggested. Consumer Agent Portal (CAP) has confirmed the use of plasma for this test. This has not been cleared or approved by the U.S. Food and Drug Administration. The FDA has determined that such clearance is not necessary. [facility] Urinalysis with Reflex to Cu ltureon 10-11-2021 Bilirubin Urine Negative NEGATIVE [facility] Color, UA Yellow Yellow [facility] Glucose, Ur Negative NEGATIVE [facility] Interpretation and review of laboratory results Abnormal [facility] Ketones Ql (U) Negative NEGATIVE [facility] th Leukocyte esterase Test strip Ql (U) Negative NEGATIVE [facility] Nitrite, Urine Negative NEGATIVE [facility] pH, UA 6.0 [facility] Protein, UA Negative NEGATIVE [facility] Specific [place], UA >1.030 High [facility] Turbidity UA Clear Clear [facility] Urine Hgb TRACE Abnormal NEGATIVE [facility] Urobilinogen, Urine Normal Normal [facility] PREG QUANT HCGon 10-09-2021 HCG QUANT <1 Normal [facility] Comment on above: Performed By: #### P REGQNT ####[facility] [address] [address]DrAung Caldera HCG RANGE SEE BELOW Normal [facility] Comment on above: Result Comment: 5-50 0-1 WEEK 40-300 1-2 WEEKS 100-1,000 2-3 WEEKS 500-6,000 3-4 WEEKS 5,000-200,000 1-2 MONTHS 10,000-100,000 2-3 MONTHS 3,000-50,000 2ND TRIMESTER 1,000-50,000 3RD TRIMESTER Performed By: #### P REGQNT ####[facility] [address] [place], [place] [address]Oh. Adrianna Caldera CULTURE, URINE, ROUTINEon CULTURE, URINE, ROUTINE SEE NOTE Abnormal [facility] Comment on above: Result Comment: CULTURE, URINE, ROUTINE Micro Number: [id number] Test Status: Final Specimen Source: Urine Specimen [...] By: #### 3 95 #### [facility] [address], [address] [place] [address] Construction Equipment Mechanic: Javid Broussard MD XR CHEST PORTABLEon 03-16-20 No acute process. [place] EXAMINATION: ONE XRAY VIEW OF THE CHEST 03/16/2020 3:33 pm COMPARISON: 07/13/2014 HISTORY: ORDERING SYSTEM PROVIDED HISTORY: cough, dyspnea TECHNOLOGIST PROVIDED HISTORY: cough, dyspnea FINDINGS: The lungs are without acute focal process. There is no effusion or pneumothorax. The cardiomediastinal silhouette is without acute process. The osseous structures are without acute process. [place], [place] James, Mhpn Incoming Radiant Results From [facility]/[employer] - 03/16/2020 3:43 PM EDT EXAMINATION: ONE XRAY VIEW OF THE CHEST 03/16/2020 3:33 pm COMPARISON: 07/13/2014 HISTORY: ORDERING SYSTEM PROVIDED HISTORY: cough, dyspnea TECHNOLOGIST PROVIDED HISTORY: cough, dyspnea FINDINGS: The lungs are without acute focal process. There is no effusion or pneumothorax. The cardiomediastinal silhouette is without acute process. The osseous structures are without acute process. IMPRESSION: No acute process. [facility], [place] Urinalysis with Microscopico n 03-03-2020 Amorphous, UA 1+ Abnormal None [facility], [place] Bacteria, UA NOT REPORTED None [facility], [place] Bilirubin Urine Negative NEGATIVE [facility], [place] Casts UA NOT REPORTED /LPF [place], [place] Color, UA YELLO YELLOW [place] Crystals, UA NOT REPORTED None /HPF [place], [place] Epithelial Cells UA None [place] Glucose, Ur Negative NEGATIVE [place] Interpretation and review of laboratory results Abnormal [place] Ketones Ql (U) Negative NEGATIVE [place] Leukocyte esterase Test strip Ql (U) Negative NEGATIVE [place] Mucus, UA NOT REPORTED None [place], [place] Nitrite, Urine Negative NEGATIVE [place] Other Observations UA NOT REPORTED NOT REQ. [place], [place] pH, UA 6.0 [place] Protein (U) [Mass/Vol] Negative NEGATIVE [place], [place] RBC (U) [#/Vol] None [facility] [place], [place] Renal Epithelial, UA NOT REPORTED 0 /HPF [place] Specific [place], UA >1.030 [place], [place] Trichomonas, UA NOT REPORTED None [facility] [place], [place] Turbidity UA CLOUDY Abnormal CLEAR [place] Urinalysis Comments NOT REPORTED [place], [place] Urine Hgb TRACE Abnormal NEGATIVE [place] Urobilinogen, Urine Normal Normal [place] WBC, UA 0 TO 2 [place] Yeast, UA NOT REPORTED None [place] HEPATOBILIARY SCAN W EJEC TION FRACTIONon 10-12-2019 Cholesterol [Mass/Vol] No convincing scintigraphic evidence of acute or chronic cholecystitis. [place] EXAMINATION: NUCLEAR MEDICINE HEPATOBILIARY SCINTIGRAPHY (HIDA [...] 30-60 mins. Images were obtained in the NORWEGIAN projection and regions of interest were drawn [...] range is based on a limited study. [place], [place] James, Mhpn Incoming Radiant Results From Sidelines - 10/12/2019 2:56 PM EDT EXAMINATION: NUCLEAR [...] 30-60 mins. Images were obtained in the NORWEGIAN projection and regions of interest were drawn [...] scintigraphic evidence of acute or chronic cholecystitis. [place] HEPATOBILIARY SCAN W PHAR MACOLOGICAL [...] 30-60 mins. Images were obtained in the NORWEGIAN projection and regions of interest were drawn [...] Niraj Covarrubias MD 10/12/19 Final result Normal [facility] H. pylori urease IDon 2019 H. pylori urease ID Specimen Description .TISSUE, ST[place] [id number] EXP 04/05/20 Direct Exam NEGATIVE Report Status FINAL 10/06/2019 Normal [facility] Comment on above: Performed By: #### H JOELLE #### [facility] [address] [place] [address] Professor In Family Studies: [place] [address] Professor In Family Studies: Omar Segundo MD OPERATIVE REPORTon 0 OPERATIVE REPORT [address] [id number] OPERATIVE REPORT PATIENT NAME: LULÚ GAITAN : 1995 MED REC NO: [id number] ROOM: ACCOUNT NO: [id number] ADMIT DATE: 10/05/2019 PROVIDER: Toño Blanc Jr [...] satisfactory condition. TOÑO BLANC JR [id number] Doc#: [id number] CC: Lisseth Blanc Jr Normal [facility] POCT urine pregnancyon 10-04 Beta HCG ( test) Ql (U) Negative NEGATIVE [place] Comment on above: Specimens with hCG l evels near the threshold of the test (25 mIU/mL) may give a negative or indeterminate result. In such cases, another test should be performed with a new specimen in 48-72 hours. If early is suspected clinically in this setting, correlation with quantitative serum b-hCG level is suggested. [id number] 10-05-2019 SARS-CoV-2 Not Detected Normal Not Detected [facility] Comment on above: Result Comment: (NOT E) The [employer] RealTime SARS-CoV-2 assay is a real-time (rt) reverse transcriptase (RT) polymerase chain reaction (PCR) test intended for the Rachio system. The SARS-CoV-2 primer and probe sets are designed to detect RNA from SARS-CoV-2 in nasopharyngeal (CHAIR POST MACHINE OPERATOR) and oropharyngeal (OP) swabs from patients with [...] The above 1 analytes were performed by [address] [address] Performed By: #### C OVID #### [facility] [address] [place] [address] Professor In Family Studies: Samson Martinez DO [facility] [address] [place] [address] Professor In Family Studies: Omar Segundo MD [facility] [address] [place] [address] Professor In Family Studies: Bill Jolly MD Surgical Pathologyon 020 Surgical Pathology (NOTE) -- Diagnosis -- 1. GASTRIC ANTRUM BIOPSIES: MILD CHRONIC INACTIVE GASTRITIS. 2. DISTAL ESOPHAGUS BIOPSIES: NORMAL SQUAMOUS MUCOSA. GASTRIC MUCOSA WITH MILD CHRONIC INACTIVE INFLAMMATION; NEGATIVE FOR INTESTINAL/GOBLET CELL METAPLASIA AND GLANDULAR DYSPLASIA. Yolette Bravo Electronically Signed Out mare10/08/2019 Clinical Information Pre-op Diagnosis: NAUSEA, VOMITING Operative [...] SURGICAL PATHOLOGY CONSULTATION Patient Name: LULÚ GAITAN [facility] Rec: [id number] Path Number: [id number] [facility] ANATOMIC PATHOLOGY [address] [place] [phone] [facility] Comment on above: Performed By: #### P PPVS #### [address] [id number] Professor In Family Studies: Omar Segundo MD [id number] 10-03-2019 SARS-CoV-2,Rapid [facility] Comment on above: Performed By: #### C OVID #### [facility] [address] [place] [address] Professor In Family Studies: Samson Martinez DO [address] [address] Professor In Family Studies: Omar Segundo MD [facility] [address] [place] [address] Professor In Family Studies: Bill Jolly MD SARS-CoV-2 [facility] Comment on above: Performed By: #### C OVID #### [facility] [address] [place] [address] Professor In Family Studies: Samson Martinez DO [address] [id number] Professor In Family Studies: Omar Segundo MD [facility] [address] [place] [address] Professor In Family Studies: Bill Jolly MD SARS-CoV-2 Source .NASOPHARYNGEAL SWAB Normal [facility] Comment on above: Performed By: #### C OVID #### [facility] [address] [place] [address] Professor In Family Studies: Samson Martinez DO [facility] [address] [place] [address] Professor In Family Studies: Omar Segundo MD [facility] [address] [place] [address] Professor In Family Studies: Bill Jolly MD XR ABDOMEN (KUB) (SINGLE AP VIEW)on 02-08-2019 Nonspecific nonobstructive bowel gas pattern. No definite calcified urinary tract stones are seen. [place] EXAMINATION: ONE SUPINE XRAY VIEW(S) OF THE [...] nonobstructive bowel gas pattern. No unusual calcifications. [place] James, Mhpn Incoming Radiant Results From [facility] - 02/08/2019 4:29 PM EDT EXAMINATION: ONE [...] definite calcified urinary tract stones are seen. [place] Urinalysis with Microscopico n 02-06-2019 Amorphous, UA NOT REPORTED None [place], [place] Bacteria, UA TRACE Abnormal None [place] Bilirubin Urine Negative NEGATIVE [place] Casts UA NOT REPORTED /LPF [place] Color, UA YELLOW YELLOW [place] Crystals UA NOT REPORTED None /HPF [place] Epithelial Cells UA 2 TO 5 [place] Glucose, Ur Negative NEGATIVE [place] Interpretation and review of laboratory results Abnormal [place] Ketones Ql (U) Negative NEGATIVE [place] Leukocyte esterase Test strip Ql (U) Negative NEGATIVE [place] Mucus, UA 1+ Abnormal None [place] Nitrite, Urine Negative NEGATIVE [place] Other Observations UA NOT REPORTED NOT REQ. [place] pH, UA 7.0 [place] Protein (U) [Mass/Vol] Negative NEGATIVE [place] RBC (U) [#/Vol] 0 TO 2 [place], [place] Renal Epithelial, Urine NOT REPORTED 0 /HPF [place] Specific [place], UA 1.020 [place], [place] Trichomonas, UA NOT REPORTED None [place], [place] Turbidity UA CLEAR CLEAR [place] Urinalysis Comments NOT REPORTED [place] Urine Hgb TRACE Abnormal NEGATIVE [place] Urobilinogen, Urine Normal Normal [place] WBC, UA 0 TO 2 [place] Yeast, UA NOT REPORTED None [place] Wet prep, genitalon 02-07-20 19 Direct Exam NO TRICHOMONAS SEEN [place], [place] Direct Exam YEAST [place] Direct Exam CLUE CELLS SEEN Abnormal [place] Interpretation and review of laboratory results Abnormal [place] Special Requests NOT REPORTED [place] Specimen Description .VAGINA [facility] [place], [place] Vital Signs Date Time Vital Sign Value Performing Clinician Facility 07-07-2023 10:35-0500 Body height 165.1 cm Matthew Lemus DO Work Phone: [facility] 07-07-2023 10:35-0500 Body mass index (BMI) [Ratio] 25.61 kg/m2 Matthew Lemus DO Work Phone: [facility] 07-07-2023 10:35-0500 Body temperature 97.7 [degF] Matthew Lemus DO Work Phone: [facility] 07-07-2023 10:35-0500 Body weight 69.81 kg Matthew Lemus DO Work Phone: [facility] 07-07-2023 10:35-0500 Diastolic blood pressure 70 mm[Hg] Matthew Lemus DO Work Phone: [facility] 07-07-2023 10:35-0500 Heart rate 100 /min Matthew Lemus DO Work Phone: [facility] 07-07-2023 10:35-0500 SaO2% (BldA) [Mass fraction] 96 % Matthew Lemus DO Work Phone: [facility] 07-07-2023 10:35-0500 Systolic blood pressure 100 mm[Hg] Matthew Lemus DO Work Phone: [facility] 05-19-2023 15:36-0500 Diastolic blood pressure 59 mm[Hg] DO Matthew Lemus Work Phone: [facility] 05-19-2023 15:36-0500 Heart rate 95 /min DO Matthew Lemus Work Phone: [facility] 05-19-2023 15:36-0500 Respiratory rate 16 /min DO Matthew Lemus Work Phone: [facility] 05-19-2023 15:36-0500 SaO2% (BldA) [Mass fraction] 99 % DO Matthew Lemus Work Phone: [facility] 05-19-2023 15:36-0500 Systolic blood pressure 109 mm[Hg] DO Matthew Lemus Work Phone: [facility] 05-19-2023 12:39-0500 Body height 165.1 cm DO Matthew Lemus Work Phone: [facility] 05-19-2023 12:39-0500 Body weight 70.76 kg DO Matthew Lemus Work Phone: [facility] 05-10-2023 11:11-0500 Diastolic blood pressure 78 mm[Hg] Rishi MARSHALL [facility] 05-10-2023 11:11-0500 Heart rate 72 /min Rishi MARSHALL [facility] 05-10-2023 11:11-0500 Systolic blood pressure 117 mm[Hg] Rishi MARSHALL [facility] 04-27-2023 13:30-0500 Body height 166.37 cm Imad Asaad Other [employer] [facility] [employer] Other 04-27-2023 13:30-0500 Body mass index (BMI) [Ratio] 25.71 kg/m2 Imad Asaad Other [employer] [facility] [employer] Other 04-27-2023 13:30-0500 Body weight 71.17 kg Imad Asaad Other [employer] Other 02-11-2023 18:20-0400 Body height 166.37 cm Sarah Anderson Other [employer] Other 02-11-2023 18:20-0400 Body mass index (BMI) [Ratio] 27.69 kg/m2 Sarah Anderson Other [employer] Other 02-11-2023 18:20-0400 Body temperature 98.1 [degF] Sarah Anderson Other [employer] Other 02-11-2023 18:20-0400 Body weight 76.66 kg Sarah Anderson Other [employer] Other 02-11-2023 18:20-0400 Diastolic blood pressure 78 mm[Hg] Sarah Aliceamond Other [employer] Other 02-11-2023 18:20-0400 Respiratory rate 18 /min Sarah Anderson Other [employer] Other 02-11-2023 18:20-0400 SaO2% (BldA) [Mass fraction] 99 % Sarah Anderson Other [employer] Other 02-11-2023 18:20-0400 Systolic blood pressure 116 mm[Hg] Sarah Anderson Other [employer] Other 02-06-2023 07:30-0400 Body temperature 98.1 [degF] DO Matthew Pamelahas Work Phone: [facility] 02-06-2023 07:30-0400 Diastolic blood pressure 60 mm[Hg] DO Matthew Yuhas Work Phone: [facility] 02-06-2023 07:30-0400 Heart rate 83 /min DO Matthew Yuhas Work Phone: [facility] 02-06-2023 07:30-0400 Respiratory rate 18 /min DO Matthew Yuhas Work Phone: [facility] 02-06-2023 07:30-0400 SaO2% (BldA) [Mass fraction] 97 % DO Matthew Lemus Work Phone: [facility] 02-06-2023 07:30-0400 Systolic blood pressure 102 mm[Hg] DO Matthew Lemus Work Phone: [facility] 02-03-2023 14:17-0400 Body height 165.1 cm DO Matthew Lemus Work Phone: [facility] 02-02-2023 23:53-0400 Body weight 74.15 kg DO Matthew Lemus Work Phone: [facility] 06-30-2022 23:12-0500 Diastolic blood pressure 56 mm[Hg] Courtney Hernandez MD Work Phone: [employer] 06-30-2022 23:12-0500 Heart rate 88 /min Courtney Hernandez MD Work Phone: [employer] 06-30-2022 23:12-0500 Respiratory rate 16 /min Courtney Hernandez MD Work Phone: [employer] 06-30-2022 23:12-0500 Systolic blood pressure 100 mm[Hg] Courtney Hernandez MD Work Phone: [employer] 06-30-2022 22:21-0500 Body height 165.1 cm Courtney Hernandez MD Work Phone: [employer] 06-30-2022 21:13-0500 SaO2% (BldA) [Mass fraction] 98 % Courtney Hernandez MD Work Phone: [employer] 06-30-2022 18:31-0500 Body mass index (BMI) [Ratio] 28.96 kg/m2 Courtney Hernandez MD Work Phone: [employer] 06-30-2022 18:31-0500 Body weight 78.93 kg Courtney Hernandez MD Work Phone: [facility] [employer] 06-30-2022 18:27-0500 Body temperature 98.4 [degF] Courtney Hernandez MD Work Phone: [facility] 06-17-2022 17:10-0500 Diastolic blood pressure 65 mm[Hg] Bridget[facility] [employer] 06-17-2022 17:10-0500 Systolic blood pressure 114 mm[Hg] Bridgette [employer] 06-17-2022 17:10-0500 Systolic blood pressure 110 mm[Hg] Bridgette [employer] 06-17-2022 17:00-0500 Body height 166.37 cm Bridgette [employer] 06-17-2022 17:00-0500 Body mass index (BMI) [Ratio] 28.43 kg/m2 Bridgette [employer] 06-17-2022 17:00-0500 Body surface area Derived from formula 1.91 m2 Bridgette [employer] 06-17-2022 17:00-0500 Body weight 78.7 kg Bridgette [employer] 06-17-2022 17:00-0500 Body weight 0.1 {percentile} Bridgette [employer] 06-17-2022 17:00-0500 Diastolic blood pressure 70 mm[Hg] Bridgette Lewis [employer] 06-17-2022 17:00-0500 Heart rate 72 /min [employer]idgette [employer] 06-17-2022 17:00-0500 Systolic blood pressure 118 mm[Hg] Bridgette Lewis [employer] 06-15-2022 17:35-0500 Body temperature 98.1 [degF] [employer] 06-15-2022 17:35-0500 Body weight 77.57 kg [employer] 06-15-2022 17:35-0500 Diastolic blood pressure 62 mm[Hg] [employer] 06-15-2022 17:35-0500 Heart rate 80 /min [employer] 06-15-2022 17:35-0500 Respiratory rate 16 /min [employer] 06-15-2022 17:35-0500 Systolic blood pressure 110 mm[Hg] [employer] 05-17-2022 11:45-0500 SaO2% (BldA) [Mass fraction] 98 % [employer] 05-17-2022 10:59-0500 Body height 166.37 cm [employer] 05-17-2022 10:59-0500 Body mass index (BMI) [Ratio] 28.19 kg/m2 [employer] 05-17-2022 10:59-0500 Body surface area Derived from formula 1.9 m2 [employer] 05-17-2022 10:59-0500 Body temperature 98.5 [degF] [employer] 05-17-2022 10:59-0500 Body weight 78.02 kg [employer] 05-17-2022 10:59-0500 Body weight 0.1 {percentile} Maricel Stafford [employer] 05-17-2022 10:59-0500 Diastolic blood pressure 60 mm[Hg] Maricel Ortega [employer] 05-17-2022 10:59-0500 Heart rate 90 /min Maricel Ortega [employer] 05-17-2022 10:59-0500 Respiratory rate 18 /min Maricel Ortega [facility] 05-17-2022 10:59-0500 Systolic blood pressure 112 mm[Hg] Maricel [employer] 02-10-2022 20:45-0400 Diastolic blood pressure 64 mm[Hg] DO Matthew Pamelahas Work Phone: [facility] 02-10-2022 20:45-0400 Heart rate 81 /min DO Matthew Yuhas Work Phone: [facility] 02-10-2022 20:45-0400 Respiratory rate 16 /min DO Matthew Yuhas Work Phone: [facility] 02-10-2022 20:45-0400 SaO2% (BldA) [Mass fraction] 99 % DO Matthew Yuhas Work Phone: [facility] 02-10-2022 20:45-0400 Systolic blood pressure 100 mm[Hg] DO Matthew Yuhas Work Phone: [facility] 02-10-2022 14:17-0400 Body height 165.1 cm DO Matthew Yuhas Work Phone: [facility] 02-10-2022 14:17-0400 Body weight 81.64 kg DO Matthew Yuhas Work Phone: [facility] 02-09-2022 10:01-0400 Body height 166.37 cm Kaleigh Guevara [employer] 02-09-2022 10:01-0400 Diastolic blood pressure 64 mm[Hg] Kaleigh Guevara [employer] 02-09-2022 10:01-0400 Heart rate 120 /min Kaleigh [employer] 02-09-2022 10:01-0400 Systolic blood pressure 118 mm[Hg] Kaleigh Guevara [employer] 01-29-2022 11:30-0400 Body height 166.37 cm [employer]idget[employer] 01-29-2022 11:30-0400 Diastolic blood pressure 62 mm[Hg] Bridgette [employer] 01-29-2022 11:30-0400 Heart rate 100 /min [employer] 01-29-2022 11:30-0400 Systolic blood pressure 114 mm[Hg] Bridgette Lewis [employer] 01-25-2022 10:30-0400 Body height 166.37 cm Tea Natarajan Other [employer] Other 01-25-2022 10:30-0400 Body mass index (BMI) [Ratio] 29.49 kg/m2 Tae Natarajan Other [employer] Other 01-25-2022 10:30-0400 Body temperature 97.8 [degF] Tae Natarajan Other [employer] Other 01-25-2022 10:30-0400 Body weight 81.65 kg Tae Natarajan Other [employer] Other 01-25-2022 10:30-0400 Diastolic blood pressure 64 mm[Hg] Tae Natarajan Other [employer] Other 01-25-2022 10:30-0400 SaO2% (BldA) [Mass fraction] 99 % Tae Natarajan Other [employer] Other 01-25-2022 10:30-0400 Systolic blood pressure 110 mm[Hg] Tae Natarajan Other [employer] Other 01-19-2022 10:59-0400 Body height 166.37 cm Bridgette [employer] 01-19-2022 10:59-0400 Body mass index (BMI) [Ratio] 29.5 kg/m2 Bridgette Lewis [employer] 01-19-2022 10:59-0400 Body surface area Derived from formula 1.94 m2 Bridgette Lewis [employer] 01-19-2022 10:59-0400 Body weight 81.65 kg Bridgette [employer] 01-19-2022 10:59-0400 Diastolic blood pressure 72 mm[Hg] Bridgette Lewis [employer] 01-19-2022 10:59-0400 Heart rate 112 /min Bridgette Lewis [employer] 01-19-2022 10:59-0400 Systolic blood pressure 114 mm[Hg] Bridgette Lewis [employer] 10-11-2021 18:26-0400 Diastolic blood pressure 77 mm[Hg] Matthew Lemus Work Phone: [employer] 10-11-2021 18:26-0400 Systolic blood pressure 130 mm[Hg] Matthew Lemus Work Phone: [employer] 10-11-2021 14:00-0400 Body mass index (BMI) [Ratio] 28.46 kg/m2 Matthew Lemus Work Phone: [employer] 10-11-2021 14:00-0400 Body temperature 97.81 [degF] Matthew Lemus Work Phone: [employer] 10-11-2021 14:00-0400 Body weight 77.56 kg Matthew Lemus Work Phone: [employer] 10-11-2021 14:00-0400 Heart rate 95 /min Matthew Lemus Work Phone: [employer] 10-11-2021 14:00-0400 Respiratory rate 16 /min Matthew Lemus Work Phone: [employer] 10-11-2021 14:00-0400 SaO2% (BldA) [Mass fraction] 98 % Matthew Lemus Work Phone: [employer] 09-29-2021 13:04-0400 Blood Pressure Location Rishi Shicon [facility] [place] 09-29-2021 13:04-0400 Diastolic blood pressure 83 mm[Hg] Rishi MARSHALL [facility] 09-29-2021 13:04-0400 Heart rate 100 /min Rishi MARSHALL [facility] [place] 09-29-2021 13:04-0400 Systolic blood pressure 124 mm[Hg] Rishi MARSHALL [facility] [place] 09-04-2021 09:22-0400 Blood Pressure Location Rishi Shicon [facility] 09-04-2021 09:22-0400 Diastolic blood pressure 67 mm[Hg] Rishi MARSHALL [facility] 09-04-2021 09:22-0400 Heart rate 78 /min Rishi MARSHALL [facility] 09-04-2021 09:22-0400 Respiratory rate 16 /min Rishi MARSHALL [facility] 09-04-2021 09:22-0400 Systolic blood pressure 97 mm[Hg] Rishi MARSHALL [facility] 03-16-2020 15:12-0400 BMI (Body Mass Index) 25.96 kg/m2 [facility] [place] 03-16-2020 15:12-0400 Body Temperature 99 [degF] [facility] [place] 03-16-2020 15:12-0400 Body weight 70.76 kg [place], [place] 03-16-2020 15:12-0400 BP Diastolic 69 mm[Hg] [facility] [place] 03-16-2020 15:12-0400 BP Systolic 125 mm[Hg] [facility] , [place] 03-16-2020 15:12-0400 Pulse (Heart Rate) 77 /min [facility] [place] 03-16-2020 15:12-0400 Pulse Oximetry 99 % [facility] [place] 03-16-2020 15:12-0400 Respiratory Rate 18 /min [facility], [place] 10-05-2019 13:30-0400 Body Temperature 98.1 [degF] [facility] [place] 10-05-2019 13:30-0400 BP Diastolic 72 mm[Hg] [place] 10-05-2019 13:30-0400 BP Systolic 110 mm[Hg] [place] 10-05-2019 13:30-0400 Pulse (Heart Rate) 76 /min [place] 10-05-2019 13:30-0400 Pulse Oximetry 100 % [place] 10-05-2019 13:30-0400 Respiratory Rate 18 /min [place] 10-05-2019 10:26-0400 BMI (Body Mass Index) 24.37 kg/m2 [place] 10-05-2019 10:26-0400 Body weight 68.49 kg [place] 10-05-2019 10:26-0400 Height 167.6 cm [place] Encounters Encounter Date Encounter Type Care Provider Facility Start: 09-27-2023 ambulatory Rishi Cardenas ty:[facility] Start: 07-07-2023 End: 07-07-2023 ambulatory [facility] Start: 07-07-2023 End: 07-07-2023 Office outpatient visit 25 minutes [facility] DO Work Phone: [facility] Internal Medicine - Family Medicine Comment on above: Bipolar 1 disorder ( [facility]) (Primary Dx); Oropharyngeal dysphagia; Generalized anxiety disorder with panic attacks Start: 07-04-2023 End: 07-04-2023 ambulatory CASEY LETY Not Available Start: 06-29-2023 End: 06-29-2023 ambulatory CAESY LETY Not Available Start: 06-13-2023 End: 06-13-2023 ambulatory CASEY LETY Not Available Start: 06-02-2023 End: 06-02-2023 ambulatory JORGE SIGALA [facility] Start: 05-19-2023 End: 05-19-2023 ambulatory Imad Asaad Facility:[facility] Start: 05-19-2023 End: 05-19-2023 Admission to same day surgery center DO Matthew Lemus Work Phone: [facility] Work Phone: Start: 05-19-2023 End: 05-19-2023 ambulatory DO Matthew Lemus Work Phone: [facility] Work Phone: Start: 05-17-2023 End: 05-17-2023 ambulatory Imad Asaad Other [employer] Other Start: 05-17-2023 Telephone encounter Imad Asaad [facility] Start: 05-12-2023 End: 05-12-2023 ambulatory Imad Asaad Facility:[facility] Start: 05-12-2023 End: 05-12-2023 ambulatory DO Matthew Lemus Work Phone: [facility] Work Phone: Start: 05-12-2023 End: 05-12-2023 Patient encounter procedure DO Matthew Lemus Work Phone: [facility] [place] Work Phone: Start: 05-10-2023 End: 05-11-2023 ambulatory Rishi MARSHALL Facility:[facility] Start: 05-10-2023 End: 05-10-2023 Patient encounter procedure Rishi MARSHALL [facility] Start: 04-27-2023 End: 04-27-2023 ambulatory Imad Asaad Other [employer] Other Start: 04-27-2023 Office outpatient ne w 45 minutes Imad Asaad [facility] Start: 04-14-2023 End: 04-15-2023 ambulatory Rishi MARSHALL Facility:[id number] Start: 03-10-2023 End: 03-10-2023 Emergency department patient visit VINOD RAY [facility] Start: 02-11-2023 End: 02-11-2023 ambulatory Sarah Anderson Other [employer] Other Start: 02-11-2023 Office outpatient visit 15 minutes Sarah Monica [facility] Start: 02-03-2023 Telephone encounter Christine Macias DO Work Phone: Gastroenterology Comment on above: Appointment Start: 02-02-2023 End: 02-06-2023 Evaluation and management of inpatient Karri Asad Facility:[facility] Start: 02-02-2023 End: 02-06-2023 Evaluation and management of inpatient DO Matthew Lemus Work Phone: [address] Work Phone: Start: 02-02-2023 ambulatory Casper Arteaga Facility:[facility] Start: 09-23-[address] CASEY DAVIDSON . Facili ty:[facility] Start: 09-16-2022 End: 09-16-[address] BRIDGETTE KRAUSE . Facility:[facility] Start: 09-04-2022 End: 09-04-2022 ambulatory CHUY MCNAMARA Facility:[facility] Start: 08-30-2022 End: 08-31-[address] CASEY DAVIDSON . Facility:[facility] Start: 08-17-2022 End: 08-18-[address] CASEY DAVIDSON . Facility:[facility] Start: 08-10-2022 End: 08-11-2022 ambulatory CASEY DAVIDSON [facility] Start: 07-21-2022 End: 07-21-[address] CASEY DAVIDSON . Facility:[facility] Start: 07-20-2022 End: 07-21-[address] CASEY DAVIDSON . Facility:[facility] Start: 07-06-2022 End: 07-06-[address] MATTHEW LEMUS Facility:[facility] Start: 06-30-2022 End: 07-01-2022 ambulatory BRIDGETTE LEWIS [facility] Start: 06-30-2022 End: 07-01-2022 Emergency department patient visit Courtney Hernandez MD [facility] Phone[facility] Comment on above: Hyperemesis [...] Start: 06-15-2022 Office Services Maricel Stafford Other [facility] Start: 06-09-[address] MATTHEW LEMUS [...] center DO Matthew Lemus Work Phone: [facility] Start: 02-09-2022 Patient encounter procedure Kaleighjacob Guevara [employer] Start: 02-09-2022 Periodic preventive med est patient 18-39 yrs Kaleigh Jami Guevara Other [facility] Start: 02-04-2022 Encounter for genera l adult medical examination without abnormal findings Bridgette Lewis [employer] Start: 02-04-2022 Lab Bridgette lindsay Other [facility] Start: 02-04-2022 Office Services Kaleigh Hernandez ams Other [facility] Start: 01-29-2022 Office outpatient visit 15 minutes Bridgette Lewis Other [facility] Start: 01-25-2022 End: 01-25-2022 ambulatory Tae Natarajan Other [employer] Other Start: 01-25-2022 Office outpatient ne w 45 minutes Tae Natarajan [facility] Vascular Surgery Start: 01-19-2022 Office outpatient ne w 30 minutes Bridgette Lewis Other [facility] Start: 12-17-2021 Encounter for genera l adult medical examination without abnormal findings [employer] Start: 12-04-2021 End: 12-05-[address] MATTHEW LEMUS Facility:[facility] Start: 11-14-2021 End: 11-14-[address] MATTHEW LEMUS Facility:[facility] Start: 10-12-2021 End: 10-12-2021 Subsequent hospital visit by physician Matthew Lemus Work Phone: [facility] Laboratory Start: 10-11-2021 End: 10-11-2021 Emergency department patient visit Matthew Lemus Work Phone: [facility] ED Comment on above: Lower abdominal pain (Primary Dx) Start: 10-09-2021 End: 10-10-[address] MATTHEW LEMUS Facility:[facility] Start: 09-29-2021 End: 09-29-2021 Patient encounter procedure Rishi R ROLANDO [facility] Start: 09-04-2021 End: 09-04-2021 Patient encounter procedure Rishi R ROLANDO [facility] Dina Start: 03-16-2020 End: 03-16-2020 Emergency department patient visit Catracho Parisi Work Phone: [facility] ED Comment on above: Viral URI with cough (Primary Dx) Start: 03-07-2020 End: 03-07-2020 Subsequent hospital visit by physician Areli Covid Screening Schedule [facility] Covid Screening Comment on above: Acute frontal sinusi tis, recurrence not specified Start: 03-03-2020 End: 03-03-2020 Subsequent hospital visit by physician Lisseth MAGALLANES Laboratory Comment on above: Gross hematuria Start: 10-12-2019 End: 10-15-2019 Patient encounter procedure [facility] Start: 10-12-2019 End: 10-14-2019 Subsequent hospital visit by physician Juan A Laguerre Room 2 [facility] Nuclear Medicine Comment on above: Intractable nausea a nd vomiting Start: 10-05-2019 End: 10-05-2019 Patient encounter procedure [facility] Start: 10-05-2019 End: 10-05-2019 Subsequent hospital visit by physician Toño Blanc Work Phone: [facility] Start: 10-03-2019 End: 10-04-2019 Patient encounter procedure BRIANA RUBIO [facility] Start: 10-03-2019 End: 10-03-2019 Subsequent hospital visit by physician Lisseth CRUZZ [place] [facility] DO[facility] Start: 10-02-2019 End: 10-02-2019 Subsequent hospital visit by physician Tonio Covid19 Pat Screening Schedule [facility] Pre-Admit Testing Comment on above: No Show Start: 02-08-2019 End: 02-10-2019 Subsequent hospital visit by physician Khalida Grey Dr Room 2 [facility] Radiology Comment on above: Gross hematuria; Urgency of urination Start: 02-06-2019 End: 02-06-2019 Subsequent hospital visit by physician Lisseth MAGALLANES Laboratory Comment on above: Gross hematuria; Urgency of urination Start: 01-15-2019 End: 01-15-2019 Subsequent hospital visit by physician Lisseth MAGALLANES Laboratory Comment on above: Dysuria; Gross hematuria Procedures Date Procedure Procedure Detail Performing Clinician Start: 07-07-2023 Adult depression screening assessment Matthew Lemus DO Work Phone: Start: 05-19-2023 Esophagogastroduodenoscopy DO Matthew Lemus Work [...] Start: 06-18-2022 Infusion of saline solution Bridgette Rocha etzulay Start: 06-18-2022 Normal saline solution infus Bridgette mcarthur Start: 06-17-2022 Blood chemistry Bridgette Lewis Start: 06-17-2022 Basic metabolic panel calcium total Ravinder Lewis Start: 06-17-2022 Docrev cur meds by umair mcarthur Start: 06-17-2022 Erythrocyte mean corpuscular volume determination Bridgette Lewis Start: 06-17-2022 Urinalysis, automated Bridgette Lewis Start: 06-15-2022 Docrev cur meds by joey morales Stafford Start: 06-15-2022 Spirometry for bronchospasm with prolonged evaluation after bronchodilator Bridgette Lewis Start: 05-17-2022 Docrev cur meds by joey morales Stafford Start: 05-17-2022 Measurement of nitric oxide Maricel Stafford Start: 03-29-2022 Human chorionic gonadotropin measurement Maricel Stafford Start: 03-17-2022 Human chorionic gonadotropin measurement Bridgette Lewis Start: 02-10-2022 Abdominal aortogram DO Matthew Lemus Work Phone: Start: 02-09-2022 Docrev cur meds by [facility] morales de [place] ve[place] Start: 02-04-2022 Comprehensive metabolic panel Kaleigh camp Start: 02-04-2022 Erythrocyte mean corpuscular volume determination Kaleigh Guevara Start: 02-04-2022 Lipid panel Kaleigh Guevara Start: 02-04-2022 Radiologic exam chest 2 views Bridgette sanford Start: 02-04-2022 Thyroid stimulating hormone measurement Kaleigh Guevara Start: 02-04-2022 Urinalysis, automated Kaleigh Guevara Start: 01-29-2022 Docrev cur meds by [facility] morales mcarthur Start: 01-19-2022 Docrev cur meds by [facility] morales mcarthur Start: 01-19-2022 Ketorolac tromethamine inj Bridgette [...] Start: 10-11-2021 Urinalysis microscopic only Christine Vazquez PA-C Work Phone: Start: 10-11-2021 Urine test visual color cmprsn meths Christine OaklandAung Rivas PA-C Work Phone: Start: 09-29-2021 Cystoscopy Rishi MARSHALL [...] Start: 10-05-2019 Continuous pulse oximetry TOÑO MORALES Jami Start: 10-05-2019 ENCOURAGE DEEP BREATHING AND COUGHING TOÑO BLANC Start: 10-05-2019 INITIATE OXYGEN THERAPY PROTOCOL TOÑO BLANC Start: 10-05-2019 NOTIFY PHYSICIAN (SPECIFY) TOÑO KASSIDY NANCY Start: 10-05-2019 NURSING COMMUNICATION TOÑO BLANC Start: 10-05-2019 VITAL SIGNS TOÑO BLANC Start: 10-05-2019 INSERT PERIPHERAL IV TOÑO BLANC Start: 10-05-2019 Urine test visual color cmprsn meths TOÑO BLANC Start: 10-05-2019 Urine test visual color cmprsn meths Toño Blanc Work Phone: Start: 10-02-2019 COVID-19 BRIANAVIVIENNE FOREMANI Start: 10-02-2019 COVID-19 BrianRojelio Rubio Work Phone: Start: 02-08-2019 Radiologic exam abdomen 1 view Usha Damico Work Phone: Start: 02-06-2019 Urnls dip stick/tablet reagent auto microscopy Usah Damico Work Phone: Start: 02-06-2019 Smr prim src wet mount nfct agt Usha Damico Work Phone: Endometrial ablation Rishi MARSHALL Esophagogastroduoden oscopy gastric outlet reduction Rishi MARSHALL Plan of Treatment Date Care Activity Detail Author Start: 09-17-2032 DTaP,Tdap and Td Vaccines (10 - Td or Tdap) DTaP,Tdap and Td Vaccines (10 - Td or Tdap) [facility] Start: 04-09-2026 HIV screen HIV screen [place], [place] Comment on above: Postponed from 2012 (Unavailable) Start: 04-09-2026 HIV screening HIV screen [facility] Comment on above: Postponed from 2012 (Unavailable) Start: 11-10-2025 DTaP/Tdap/Td vaccine (5 - Td or Tdap) DTaP/Tdap/Td vaccine (5 - Td or Tdap) [facility] Start: 11-10-2025 DTaP/Tdap/Td vaccine (6 - Tdap) DTaP/Tdap/Td vaccine (6 - Tdap) [place] Start: 07-07-2024 Adult BMI Screening Adult BMI Screening [facility] Start: 07-07-2024 Depression Screening Depression Screening [facility] Start: 07-07-2024 Tobacco Screening Tobacco Screening [facility] Start: 05-19-2023 [facility] Start: 02-06-2023 [facility] Start: 02-02-2023 Hospital admission [facility] Start: 01-28-2023 COVID-19 Vaccine ( season) COVID-19 Vaccine ( season) [facility] Start: 01-28-2023 Influenza vaccination [facility] Start: 08-09-2022 Lipid panel Lipid panel [facility] Start: 08-09-2022 Transferase alanine amino alt sgpt ALT [facility] Start: 08-09-2022 Transferase aspartate amino ast sgot AST [facility] Start: 06-21-2022 Iv infusion hydration initial 31 min-1 hour IV HYDRATION,INITIAL,31 MINUTES TO 1 HOUR [facility] Start: 06-17-2022 Basic metabolic panel calcium total Chem 8 [facility] Start: 06-15-2022 Brncdilat rspse spmtry pre&post-brncdilat admn Spirometry with bronchodilator [facility] Start: 05-30-2022 DEPRESSION ASSESSMENT DEPRESSION ASSESSMENT [facility] Start: 05-17-2022 Nitric oxide gas determination FENO [facility] Start: 04-03-2022 Depression Monitoring Depression Monitoring [facility] Start: 03-29-2022 Gonadotropin chorionic quantitative Beta HCG Quantitative [facility] Start: 03-17-2022 Gonadotropin chorionic quantitative Beta HCG Quantitative [facility] Start: 02-10-2022 [facility] Work Phone: Start: 02-04-2022 Assay of thyroid stimulating hormone tsh TSH [facility] Start: 02-04-2022 Blood count complete automated CBC PLATELET COUNT; AUTOMATED [facility] Start: 02-04-2022 Comprehensive metabolic panel Comp [facility] Start: 02-04-2022 Lipid panel Lipid panel [facility] Start: 02-04-2022 Urnls dip stick/tablet rgnt auto w/o microscopy UA [facility] Start: 02-04-2022 Chest PA & LAT [facility] Start: 01-19-2022 Therapeutic prophylactic/dx injection subq/im Sub Q/ IM injection [facility] Start: 12-28-2021 Influenza vaccination [facility] Start: 12-23-2021 Skin test tuberculosis intradermal PPD (Skin test; tuberculosis, intradermal) [facility] Start: 07-29-2021 COVID-19 Vaccine (3 - Booster for Pfizer series) COVID-19 Vaccine (3 - Booster for Pfizer series) [facility] Start: 05-12-2021 COVID-19 Vaccine (5 - Booster) COVID-19 Vaccine (5 - Booster) [facility] Start: 03-03-2020 End: 03-03-2020 Office Visit 03/03/2020 Office Visit Urology Jose Lala MD [address], [address] [place] [address] [facility] Start: 02-07-2020 Chlamydia screen Chlamydia screen [place] Start: 02-07-2020 Screening for Chlamydia trachomatis Chlamydia screen [facility] Start: 01-29-2020 Influenza vaccination [place] Start: 11-04-2019 Chlamydia screen Chlamydia screen [place] Start: 10-05-2019 End: 10-05-2019 Hospital Encounter [facility] Comment on above: EGD ESOPHAGOGASTRODUODENOSCOPY Start: 02-20-2019 End: 02-20-2019 Office Visit 02/20/2019 Office Visit 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, 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 - [employer] [address] [place] [address] [phone] [facility] Start: 02-08-2019 End: 02-08-2019 Appointment 02/08/2019 Appointment Radiology [facility] Start: 01-28-2019 Influenza vaccination Flu vaccine (#1) [place] Start: 2018 Cervical cancer screen Cervical cancer screen [place] Start: 2018 PAP TESTING PAP TESTING [facility] Start: 2018 Screening for malignant neoplasm of cervix [facility] Start: 2016 Urine microalbumin profile DTAP,TDAP,TD (1 - Tdap) [facility] Start: 2015 Adult BMI Follow Up Plan Adult BMI Follow Up Plan [facility] Start: 2015 Hepatitis C screening Hepatitis C screen [facility] Start: 2015 HEPATITIS C SCREENING HEPATITIS C SCREENING [facility] Start: 2015 HIV SCREENING HIV SCREENING [facility] Start: 02-05-2014 Varicella vaccine (2 of 2 - 13+ 2-dose series) Varicella vaccine (2 of 2 - 13+ 2-dose series) [facility] Start: 2012 HPV vaccine (1 - Female 3-dose series) HPV vaccine (1 - Female 3-dose series) [place] Start: 2011 PEDS TO ADULT TRANSITION ANNUAL ASSESSMENT PEDS TO ADULT TRANSITION ANNUAL ASSESSMENT [facility] Start: 2010 Varicella Vaccine (1 of 2 - 13+ 2-dose series) Varicella Vaccine (1 of 2 - 13+ 2-dose series) [place] Start: 2009 PEDS TO ADULT TRANSITION INITIAL DISCUSSION PEDS TO ADULT TRANSITION INITIAL DISCUSSION [facility] Start: 2008 HPV vaccine (1 - 2-dose series) HPV vaccine (1 - 2-dose series) [facility] Start: 2006 HPV VACCINE (1 - 2-dose series) HPV VACCINE (1 - 2-dose series) [facility] Start: 2003 Pneumococcal 0-64 years Vaccine (1 - PCV) Pneumococcal 0-64 years Vaccine (1 - PCV) [facility] Start: 2003 Pneumococcal 0-64 years Vaccine (1 of 1 - PPSV23) Pneumococcal 0-64 years Vaccine (1 of 1 - PPSV23) [place] Start: 1998 Varicella vaccine (1 of 2 - 2-dose childhood series) Varicella vaccine (1 of 2 - 2-dose childhood series) [place] Start: 1997 COVID-19 VACCINE (#1) COVID-19 VACCINE (#1) [facility] Start: 1997 HEPATITIS B (1 of 3 - 3-dose series) HEPATITIS B (1 of 3 - 3-dose series) [facility] End: 01-15-2019 Bacteria identified Cx Nom (U) Urine Culture Microbiology Routine Dysuria Gross hematuria 1 Occurrences starting 01/15/2019 until 01/15/2019 [place] Comment on above: 1 Occurrences starting 01/15/2019 until 01/15/2019 End: 02-06-2019 C.trachomatis N.gonorrhoeae DNA, Urine C.trachomatis N.gonorrhoeae DNA, Urine Microbiology Routine Gross hematuria Urgency of urination 1 Occurrences starting 02/06/2019 until 02/06/2019 [place] Comment on above: 1 Occurrences starting 02/06/2019 until 02/06/2019 C.trachomatis N.gono rrhoeae DNA, Urine C.trachomatis N.gonorrhoeae DNA, Urine Microbiology Routine Gross hematuria Urgency of urination 02/06/2019 12:22 PM EDT [place] COVID-19 [place] End: 10-02-2019 COVID-19 COVID-19 Lab Routine One Time for 1 Occurrences starting 10/02/2019 until 10/02/2019 [place] Comment on above: One Time for 1 Occurrences starting 09/2019 until 10/02/2019 End: 03-07-2020 COVID-19 Ambulatory COVID-19 Ambulatory Lab Routine Acute frontal sinusitis, recurrence not specified 1 Occurrences starting 03/07/2020 until 03/07/2020 [place] Comment on above: 1 Occurrences starting 03/07/2020 until 03/07/2020 COVID-19 Ambulatory COVID-19 Amb ulatory Lab Routine Acute frontal sinusitis, recurrence not specified 03/07/2020 11:12 AM EDT [place] End: 03-16-2020 COVID-19, PCR COVID-19, PCR Lab Routine One Time for 1 Occurrences starting 03/16/2020 until 03/16/2020 [place] Comment on above: One Time for 1 Occurrences starting 02/27 until 03/16/2020 End: 03-03-2020 Culture, Urine Culture, Urine Microbiology Routine Gross hematuria 1 Occurrences starting 03/03/2020 until 03/03/2020 [place] Comment on above: 1 Occurrences starting 03/03/2020 until 03/03/2020 Culture, Urine [place] End: 06-30-2022 Culture, Urine [facility] Work Phone: Comment on above: One Time for 1 Occurrences starting 05/2022 until 06/30/2022 [facility]: Release Upon Ordering for 1 Occurrences starting 10/05/2019 Initiate Oxygen Therapy Protocol Initiate Oxygen Therapy Protocol Respiratory Care Routine Daily until discontinued starting 10/05/2019 [facility] Comment on above: Daily until discontinued starting 2019 Patient Education Depression, Ad ult (DC) [facility] DC Instructions [facility] Work Phone: Patient referral [facility] Work Phone: Phase I & II - metered glucose P hase I & II - metered glucose Point of Care Testing Routine As Needed until discontinued starting 10/05/2019 [facility] Comment on above: As Needed until discontinued starting End: 10-05-2019 POC Urine Qual POC Urine Qual Point of Care Testing Routine One Time for 1 Occurrences starting 10/05/2019 until 10/05/2019 [facility] Comment on above: One Time for 1 Occurrences starting 12/2019 until 10/05/2019 Surgical Pathology Surgical Path ology Lab Routine Release Upon Ordering for 1 Occurrences starting 10/05/2019 [facility] Comment on above: Release Upon Ordering for 1 Occurrences starting 10/05/2019 End: 02-06-2019 Urine culture clean catch Urine culture clean catch Microbiology Routine Gross hematuria Urgency of urination 1 Occurrences starting 02/06/2019 until 02/06/2019 [facility] Comment on above: 1 Occurrences starting 02/06/2019 until 02/06/2019 Urine culture clean catch Urine culture clean catch Microbiology Routine Gross hematuria Urgency of urination 02/06/2019 12:22 PM EDT [facility] Immun[facility] Immunization Date Immunization Notes Care Provider Frank blanco 09-23-2022 RHO(D) immune globulin- IV or IM Matthew Yuhas DO Work Phone: [facility] 09-17-2022 RHO(D) immune globulin- IV or IM Matthew Yuhas DO Work Phone: [facility] 09-17-2022 tetanus toxoid, reduced diphtheria toxoid, and acellular pertussis vaccine, adsorbed Rishi MARSHALL [facility] 01-05-2022 [facility] 12-23-2021 Tub[facility]ol [place] [employer] 04-28-2021 influenza virus vaccine, unspecified formulation Rishi MARSHALL [facility] 04-28-2021 influenza, injectabl e, quadrivalent, preservative free Matthew Lemus DO Work Phone: [facility] 03-17-2021 COVID-19, Pfizer, 30mcg/0.3ml [place] [employer] [facility] 02-28-2021 SARS-CoV-2 (COVID-19 ) mRNA BNT-162b2 vax Rishi MARSHALL [facility] 02-27-2021 SARS-CoV-2 (COVID-19 ) Ad26 vaccine, recombinant Rishi MARSHALL [facility] 02-08-2021 SARS-CoV-2 (COVID-19 ) mRNA BNT-162b2 vax Rishi MARSHALL [facility] 01-28-2021 SARS-CoV-2 (COVID-19 ) Ad26 vaccine, recombinant Rishi MARSHALL [facility] 01-20-2021 COVID-19, Pfizer, 30mcg/0.3ml [facility] 05-02-2018 influenza virus vaccine, unspecified formulation [facility] [place] 01-27-2016 Influenza Vaccine, unspecified formulation [facility] [place] 01-27-2016 influenza virus vaccine, unspecified formulation Rishi MARSHALL [facility] 01-27-2016 influenza, seasonal, injectable, preservative free Matthew Lemus DO Work Phone: [facility] 12-29-2015 hepatitis B vaccine, adult dosage Rishi MARSHALL [facility] 12-17-2015 hepatitis B vaccine, adult dosage Matthew Lemus DO Work Phone: [facility] 12-17-2015 hepatitis B vaccine, unspecified formulation [facility] [place] 11-26-2015 hepatitis B vaccine, adult dosage Rishi MARSHALL [facility] 11-11-2015 diphtheria, tetanus toxoids and acellular pertussis vaccine [facility] 11-11-2015 tetanus toxoid, reduced diphtheria toxoid, and acellular pertussis vaccine, adsorbed Rishi MARSHALL [facility] 01-08-2014 tetanus toxoid, reduced diphtheria toxoid, and acellular pertussis vaccine, adsorbed Rishi MARSHALL [facility] 01-08-2014 varicella virus vaccine Rishi MARSHALL [facility] 10-17-2002 diphtheria, tetanus toxoids and acellular pertussis vaccine, unspecified formulation Matthew Lemus DO Work Phone: [facility] 10-17-2002 DTaP, unspecified formulation Rishi MARSHALL [facility] 10-17-2002 measles, mumps and rubella virus vaccine [facility] [place] 10-17-2002 poliovirus vaccine, inactivated [facility] [place] 10-17-2002 poliovirus vaccine, unspecified formulation Matthew Miltons DO Work Phone: [facility] 10-17-2002 tetanus toxoid, reduced diphtheria toxoid, and acellular pertussis vaccine, adsorbed Matthew Miltons DO Work Phone: [facility] 05-17-1998 haemophilus influenz ae type b vaccine, conjugate unspecified formulation Matthew Miltons DO Work Phone: [facility] 05-17-1998 Hib, unspecified [facility] [place] 05-17-1998 poliovirus vaccine, inactivated [facility] [place] 03-27-1998 diphtheria, tetanus toxoids and acellular pertussis vaccine [facility] 03-27-1998 diphtheria, tetanus toxoids and acellular pertussis vaccine, unspecified formulation Matthew Lemus DO Work Phone: [facility] 03-27-1998 DTaP, unspecified formulation Rishi MARSHALL [facility] 03-27-1998 haemophilus influenz ae type b vaccine, conjugate unspecified formulation Matthew Lemus DO Work Phone: [facility] 03-27-1998 haemophilus influenz ae type b vaccine, HbOC conjugate Matthew Lemus DO Work Phone: [facility] 03-27-1998 Hib, unspecified [facility] [place] 03-27-1998 measles, mumps and rubella virus vaccine [facility] 03-27-1998 tetanus toxoid, reduced diphtheria toxoid, and acellular pertussis vaccine, adsorbed Matthew Lemus DO Work Phone: [facility] 1997 diphtheria, tetanus toxoids and acellular [place] diphtheria, tetanus toxoids and acellular pertussis vaccine, unspecified formulation Matthew Lemus DO Work Phone: [facility] 1997 DTaP, unspecified formulation Rishimaricel MARSHALL [facility] 1997 haemophilus influenz ae type b conjugate and Hepatitis B vaccine Matthew Lemus DO Work Phone: [facility] 1997 haemophilus influenz ae type b vaccine, conjugate unspecified formulation Matthew Lemus DO Work Phone: [facility] 1997 hepatitis B vaccine, adult dosage Matthew Lemus Work Phone: [facility] Work Phone: 1997 hepatitis B vaccine, unspecified formulation [place], [place] 1997 Hib, unspecified [employer] 1997 poliovirus vaccine, inactivated [facility] [place] 1997 tetanus toxoid, reduced diphtheria toxoid, and acellular pertussis vaccine, adsorbed Matthew Lemus DO Work Phone: [facility] 1997 trivalent poliovirus vaccine, live, oral Matthew Lemus DO Work Phone: [facility] 1997 diphtheria, tetanus toxoids and acellular pertussis vaccine [facility] [place] diphtheria, tetanus toxoids and acellular pertussis vaccine, unspecified formulation Matthew Lemus DO Work Phone: [facility] 1997 DTaP, unspecified formulation Rishi MARSHALL [facility] 1997 haemophilus influenz ae type b vaccine, HbOC conjugate Matthew Lemus DO Work Phone: [facility] 1997 tetanus toxoid, reduced diphtheria toxoid, and acellular pertussis vaccine, adsorbed Matthew Lemus DO Work Phone: [facility] 1997 trivalent poliovirus vaccine, live, oral Matthew Lemus DO Work Phone: [facility] 1997 diphtheria, tetanus toxoids and acellular pertussis vaccine [facility] [place] 1997 diphtheria, tetanus toxoids and acellular pertussis vaccine, unspecified formulation Matthew Lemus DO Work Phone: [facility] 1997 DTaP, unspecified formulation Rishimaricel MARSHALL [facility] 1997 haemophilus influenz ae type b vaccine, conjugate unspecified formulation Matthew Lemus DO Work Phone: [facility] 1997 Hib, unspecified [facility] [place] 1997 Hib, unspecified formulation Rishimaricel MARSHALL [facility] 1997 poliovirus vaccine, inactivated [facility] [place] [facility] tetanus toxoid, reduced diphtheria toxoid, and acellular pertussis vaccine, adsorbed Matthew Lemus DO Work Phone: [facility] 1997 trivalent poliovirus vaccine, live, oral Matthew Lemus DO Work Phone: [facility] 1997 hepatitis B vaccine, adult dosage Matthew Lemus Work Phone: [facility] Work Phone: 1997 hepatitis B vaccine, pediatric or pediatric/adolescent dosage Rishi MARSHALL [facility] 1997 hepatitis B vaccine, unspecified formulation Dipakkumar Johnson [facility], [facility] 1997 hepatitis B vaccine, adult dosage Matthew Lemsu Work Phone: [facility] Work Phone: 1997 hepatitis B vaccine, pediatric or pediatric/adolescent dosage Rishi MARSHALL [facility] 1997 hepatitis B vaccine, unspecified formulation Lisseth Johnson [facility], [place] Payers Date Payer Category Payer Medicaid [id number] 2015 Unknown BCBS [place] - [place] P PO xxxxxxxxxxxx 2015-Present [address] [place] [address] xxxxxxxxxxxx [id number] 1997 Unknown [id number] 2.16.840.1.222224.3.579.2.177 1997 Unknown [id number] 2.16.840.1.421766.3.579.2.177 1997 Unknown [id number] 2.16.840.1.203352.3.579.2.175 1997 Unknown [id number] 2.16.840.1.627903.3.579.2.593 1997 Unknown [id number] 2.16.840.1.531756.3.579.2.593 1997 Unknown [id number] 2.16.840.1.170878.3.579.2.593 1997 Unknown [id number] 2.16.840.1.516641.3.579.2.593 1997 Unknown [id number] 2.16.840.1.575472.3.579.2.593 1997 Unknown [id number] 2.16.840.1.959564.3.579.2.593 1997 Unknown [id number] 2.16.840.1.228777.3.579.2.593 1997 Unknown [id number] 2.16.840.1.717879.3.579.2.593 1997 Unknown [id number] 2.16.840.1.291324.3.579.2.593 1997 Unknown [id number] 2.16.840.1.615963.3.579.2.593 1997 Unknown [id number] 2.16.840.1.824695.3.579.2.593 1997 Unknown [id number] 2.16.840.1.099871.3.579.2.593 1997 Unknown [id number] 2.16.840.1.376196.3.579.2.593 1997 Unknown [id number] 2.16.840.1.212450.3.579.2.593 1997 Unknown [id number] 2.16.840.1.851126.3.579.2.593 1997 Unknown [id number] 2.16.840.1.814179.3.579.2.593 1997 Unknown [id number] 2.16.840.1.865682.3.579.2.593 1997 Unknown [id number] 2.16.840.1.513144.3.579.2.593 1997 Unknown [id number] 2.16.840.1.573176.3.579.2.593 1997 Unknown [id number] 2.16.840.1.066059.3.579.2.173 1997 Unknown [id number] 2.16.840.1.413924.3.579.2.173 1997 Unknown [id number] 2.16.840.1.294195.3.579.2.173 1997 Unknown [id number] 2.16.840.1.946196.3.579.2.727 1997 Unknown [id number] 2.16.840.1.208559.3.579.2.727 1997 Unknown [id number] 2.16.840.1.699253.3.579.2.727 1997 Unknown [id number] 2.16.840.1.312069.3.579.2.128 6 1997 Unknown [id number] 2.16.840.1.670151.3.579.2.125 9 1997 Unknown [id number] 2.16.840.1.945885.3.579.2.125 9 1997 Unknown [id number] 2.16.840.1.363267.3.579.2.125 9 1997 Unknown [id number] 2.16.840.1.698272.3.579.2.128 6 1959 Self-pay [id number] 1959 Unknown [id number] 1959 Unknown [id number] 2.16.840.1.085960.3.441 1959 Unknown [id number] Unknown [id number] Unknown [id number] 216.840.1.081890.3.579.2.531 Unknown [id number] 2.16.840.1.919521.3.579.2.531 Unknown [id number] 2.16.840.1.912009.3.579.2.531 Social History Date Type Detail Facility Start: 02-06-2019 End: 05-19-2023 Tobacco smoking status VTIS Never smoker [place] Start: 02-06-2019 End: 04-26-2022 Alcohol intake [facility] Start: 1995 Sex Assigned At Not on file [facility] Start: 07-31-2019 End: 10-05-2019 Alcohol intake Current non-drinker of alcohol (finding) [place] Exposure to SARS-CoV -2 (event) Unable to assess [place] Start: 03-03-2020 End: 11-10-2021 Tobacco use and exposure Never used [facility] Start: 03-03-2020 End: 07-07-2023 Alcohol intake Current drinker of alcohol (finding) [place] Start: 03-03-2020 Alcohol Comment occasional [facility] Start: 10-01-2021 End: 06-30-2022 Exposure to SARS-CoV-2 (event) Not sure [place] Tobacco smoking status Never [facility] Start: 04-03-2021 History SDOH Financial 5 [facility] Work Phone: Start: 04-03-2021 History SDOH Food Worry 1 [facility] Work Phone: Start: 04-03-2021 History 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 2 [facility] Work Phone: Start: *Tobacco [facility] Start: 1995 Sex Assigned At Female [facility] Tobacco smoking stat us VTIS Tobacco smoking consumption unknown [facility] Start: 11-10-2021 Tobacco smoking status NHIS Ex-smoker [facility] History of tobacco use Current smoker [facility] History of tobacco use Tobacco U se Types Packs/Day Years Used Date Smoking Tobacco: Former Vaping/E-cigarettes Smokeless Tobacco: Never [facility] Start: 04-26-2022 End: 07-07-2023 History of Social function [facility] Do you belong to any clubs or organizations such as evangelical groups, unions, fraternal or athletic groups, or school groups? No [facility] Are you now , , , , never or living with a partner? Living with partner [facility] How often to you hav e a drink containing alcohol? Never [facility] How hard is it for y ou to pay for the very basics like food, housing, medical care, and heating Not very hard [facility] Do you feel stress - tense, restless, nervous, or anxious, or unable to sleep at night because your mind is troubled all the time - these days [OSQ] Rather much [facility] Start: 04-26-2022 Education 16 [facility] Start: 06-07-2018 Alcohol Comment occasionally [facility] Goals Date Patient Goal Desired Activity /State Functional Status Date Assessment Result Facility 05-10-2023 Functional Status N/A [facility] 02-06-2023 Functional status Patient at Baseline [facility] Work Phone: Mental Status Date Assessment Result Facility 02-06-2023 Cognitive function Cognitive Sta tus Patient at Baseline [facility] Work Phone: Clinical Notes 09-04-2021 to 07-07-2023 Matthew Lemus, DO - 07/07/2023 10:30 AM EST Note Date & Type Note Facility 07-07-2023 History of Present illness Narrative IM PROGRESS NOTE Patient - Lulú Gaitan Age - 28 y[facility] 1995 [id number] ASSESSMENT & PLAN 1. Bipolar 1 disorder (CMS-HCC) -overall stable -undergoing medical regimen change. Will be starting Caplyta, clonazepam, and BuSpar. Is weaning off of Fetzima, Geodon, and Ativan -keep follow-up with mental health provider 2. Oropharyngeal dysphagia -she seems to notice this is related to her anxiety -continue treatment as above -if symptoms would persist, may need evaluation of her thyroid gland for thyroiditis, or possibly speech swallow evaluation 3. Generalized anxiety disorder with panic attacks -stable as above Subjective 28-year-old female presents for follow-up on her gastrointestinal symptoms problems. At last visit, she was noted to have abnormal gastric emptying study. Was referred to GI. In the interim, she had worsened problems with her bipolar disorder and anxiety and was admitted to [facility] for evaluation and adjustment of her medications. At the same time, she was seen by GI. -she reports that her symptoms of nausea and vomiting are improved but not gone. -she has noticed that the nausea and vomiting are directly related to her anxiety, and as that has been better controlled the symptoms are less. -Zofran no longer works for her. However the Phenergan tabs and Phenergan suppositories do provide relief if needed. She is having to use these perhaps 1-2 days a week. -overall, her weight has been about stable. -she did have CT scan and upper GI at [facility]. Both were termed normal except for changes related to her recent kidney stone and bladder manipulation. A review of systems was negative except for the following: General: sleep disturbance Psychiatric: anxiety, mood swings, and now seeing a new mental health provider (Nelly Pederson) out of [place]. Has recently had wholesale changes to her medical regimen. Too early to tell how the changes may help or hurt her current status. Changes all made in the last 1 week. Genito-Urinary: Had problems with kidney stones, and has seen Urology. They felt it was from hold her urine too long during the day, and recommended a regular voiding schedule. She is still seeing Gynecology about ongoing pelvic pain. Now has a IUD in place.. Exam BP 100/70 (BP Site: Left Arm, BP Postition: Sitting) Pulse 100 Temp 36.5 C (97.7 F) (Oral) Ht 165.1 cm (5' 5 ) Wt 69.8 kg (153 lb 14.4 oz) SpO2 96% BMI 25.61 kg/m Physical Exam Vitals reviewed. Constitutional: General: She is not in acute distress. Appearance: She is well-developed. She is not toxic-appearing. Comments: Overweight HENT: Head: Normocephalic and atraumatic. Right Ear: External ear normal. Left Ear: External ear normal. Nose: Nose normal. Mouth/Throat: Mouth: Mucous membranes are moist. Eyes: General: No scleral icterus. Conjunctiva/sclera: Conjunctivae normal. Neck: Vascular: No carotid bruit. Comments: Thyroid gland normal size and nontender and symmetric Cardiovascular: Rate and Rhythm: Normal rate and regular rhythm. Heart sounds: No murmur heard. No gallop. Pulmonary: Effort: Pulmonary effort is normal. Breath sounds: No wheezing or rales. Abdominal: General: Bowel sounds are normal. There is no distension. Palpations: Abdomen is soft. Tenderness: There is no abdominal tenderness. There is no right CVA tenderness, left CVA tenderness or guarding. Musculoskeletal: Cervical back: Neck supple. Right lower leg: No edema. Left lower leg: No edema. Lymphadenopathy: Cervical: No cervical adenopathy. Skin: General: Skin is warm and dry. Coloration: Skin is not jaundiced. Findings: No bruising. Neurological: Mental Status: She is alert and oriented to person, place, and time. Motor: No weakness. Coordination: Coordination normal. Deep Tendon Reflexes: Reflexes are normal and symmetric. Comments: Mild resting tremors hands and legs Psychiatric: Mood and Affect: Mood normal. Behavior: Behavior normal. Meds Current Outpatient Medications: busPIRone (BUSPAR) 15 mg tablet, , Disp: , Rfl: CAPLYTA 42 mg capsule capsule, , Disp: , Rfl: clonazePAM (KlonoPIN) 0.5 mg tablet, , Disp: , Rfl: famotidine (PEPCID) 20 mg tablet, Take 1 tablet (20 mg total) by mouth., Disp: , Rfl: levomilnacipran (FETZIMA) 20 mg capsule,extended release 24 hr, Take 1 capsule (20 mg total) by mouth in the morning., Disp: , Rfl: levonorgestreL (MIRENA) 21 mcg/24 hours (8 yrs) 52 mg IUD, by intrauterine route daily., Disp: , Rfl: omeprazole (PriLOSEC) 10 mg capsule, Take 2 capsules (20 mg total) by mouth in the morning., Disp: , Rfl: vit37/iron/folic acid (PRENATA ORAL), Take by mouth., Disp: , Rfl: promethazine (PHENERGAN) 12.5 mg suppository, Insert 1 suppository (12.5 mg total) into the rectum every 6 (six) hours as needed for nausea or vomiting., Disp: 12 each, Rfl: 0 promethazine (PHENERGAN) 12.5 mg tablet, Take 1 tablet (12.5 mg total) by mouth every 6 (six) hours as needed for nausea or vomiting., Disp: 30 tablet, Rfl: 0 ziprasidone (GEODON) 20 mg capsule, Daily after supper, Disp: , Rfl: ziprasidone (GEODON) 20 mg capsule, Take 1 capsule (20 mg total) by mouth in the morning and 1 capsule (20 mg total) in the evening. Take with meals., Disp: , Rfl: Lab Results No visits with results within 1 Month(s) from this visit. Latest known visit with results is: Hospital Outpatient Visit on 05/09/2023 Component Date Value Ref Range Status Specimen Notes 05/09/2023 URINE RECEIVED WITHOUT PRESERVATIVE Final Culture 05/09/2023 10-50,000 ORGANISMS/mL NORMAL UROGENITAL JIGAR Final Culture 05/09/2023 URINE RECEIVED WITHOUT PRESERVATIVE-DELAYS IN TRANSPORT MAY AFFECT RESULTS.INTERPRET WITH CAUTION AND CLINICAL CORRELATION IS RECOMMENDED. Final Other Testing No results found. Matthew Lemus DO., [facility] Office: [phone] documented in this encounter [facility] 05-19-2023 History and physical note Note Date/Time May 19, 2023 1:38pm [place] [address] Gastroenterology H&P Signed Patient: Lulú Gaitan MR#: [id number] : 1995 Acct:[id number] Age/Sex: 28 / F Adm Date: 3 Loc: Room: Type: [facility] Attending Dr: Fany Ceballos MD Copies to: [...] <Electronically signed by Fany Ceballos MD> 05/19/231337 [facility] Work Phone: 1(679) 317-699012-21-2023 [facility]* Encounter Date Diagnosis Assessment Notes Treatment Notes Treatment Clinical Notes Apr, Abnormal abdominal C T scan (ICD-10 - R93.5) Apr, Pyelonephritis of left kidney (ICD-10 - N12) [facility] Other 12-12-2023 Hospital Discharge instructions Patient Education [...] Follow these instructions at home: Medicines Take rwsf-zop-implbom and prescription medicines only as told by [...] or the blood stops without treatment. Take lgco-yxs-sfknixd and prescription medicines only as told by your health care provider. Drink enough fluid to keep your urine pale yellow. This information is not intended to replace advice given to you by your health care provider. Make sure you discuss any questions you have with your health care provider. Document Revised: 01/14/2021 Document Reviewed: 01/14/2021 [employer]. Patient Education 2022 CAL - [employer]. Follow Up Care 05/06/2023 07:59:50 With:ROLANDO DEVLIN, Rishi Ghosh, URL Address: [facility] [address] , [place] [address]- When:Within 4 Month(s) Comments:w/PVR [facility] 11-29-2023 Evaluation note* Encounter Date Diagnosis Assessment Notes Treatment Notes Treatment Clinical Notes Mar, Irritable bowel syndrome with constipation (ICD-10 - K58.1) Mar, Delayed gastric emptying (ICD-10 - K30) Mar, Vomiting (ICD-10 - R11.10) [facility] Other 09-15-2023 Evaluation note* Encounter Date Diagnosis [...] no improvement in 2 to 3 days [facility] Other 09-10-2023 Hospital Discharge instructions Additional Instructions Important Contact Information You can call [facility] at [phone] any time day or night if you [...] Text Line (available 20/12) text 4HOPE to [phone] [facility] Line (available 8 a.m. Midnight) call [phone] ([phone]) [facility] Work Phone: 1(928) 297-217109-09-2023 Progress note Author Karri Kamara [facility] February 05, 2023 12:00pm Note Date/Time February 05, 2023 12:00pm [facility] [address] [place] [address] Psychiatry Progress Note Signed Patient: Lulú Gaitan MR#: [id number] : 1995 Acct:[id number] Age/Sex: 27 / F Adm Date: 3 Loc: Room: [address] [place] [address] Type : ADM IN Attending Dr: Karri [...] explained Documented By: Karri Kamara MD 02/05/23 1155 Signed By: <Electronically signed by Karri Kamara MD> 02/05/23 1200 [facility] Work Phone: 1(447) 347-593409-08-2023 Progress note Author Karri Kamara [facility] February 04, 2023 1:43pm Note Date/Time February 04, 2023 1:44pm [facility] [address] [place] [address] Psychiatry Progress Note Signed Patient: Lulú Gaitan MR#: [id number] : 1995 Acct:[id number] Age/Sex: 27 / F Adm Date: 3 Loc: Room: [address] [place] [address] Type : ADM IN Attending Dr: Karri [...] confirmed this with the medical student as notedscott. Patient reported that she is feeling better. [...] signed by Karri Kamara MD> 02/04/23 1343 [facility] Work Phone: 1(881) 547-637909-07-2023 Miscellaneous Notes* Telephone Encounter - Viviana David [...] list full name of hospital or facility)? [facility] If the patient had a gastric [...] G/J Tube?No Preferred phone number for contact: [phone] [facility] History and physical note Author Karri Kamara [facility] February 03, 2023 11:58am Note Date/Time February 03, 2023 11:58am [facility] [address] [place] [address] Psychiatry H&P Signed Patient: Lulú Gaitan MR#: [id number] : 1995 Acct:[id number] Age/Sex: 27 / F Adm Date: 3 Loc: Room: [address] [place] [address] Type: ADM IN Attending Dr: Karri Kamara MD Copies to: MD Matthew Wyatt,~ Date of Service: 02/03/2023 HPI History of [...] States she recently saw her psychiatrist at [facility] and was restarted on Latuda. 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 Nurse pal[pates pt's abdomen when pt feeling [...] started today after being on her feet chiqutia at work. States that tightening was less [...] at this time. [facility] [employer] Phone: 1(385) 532-235602-02-2023 Hospital Discharge instructions* Discharge Instructions* Jenna Elliott RN - 07/01/2022 12:27 AM EST OUTPATIENT DISCHARGE Dr. Miguel Aguilera [facility] Dr. Katelynn Leslie [facility] [address] [facility] [address] Gobler or Grace Chyna Prakash [facility] [address] [address] [place] [address] ACTIVITY LIMITATIONS: ( x )Up [...] AND DELIVERY . documented in this encounterBON [facility] Work Phone: 1(286) 826-539909-14-2022 History and physical note Author Tae Natarajan [facility] February 10, 2022 5:06pm Note Date/Time February 10, 2022 5:06pm [facility] [address] [place] [address] Vascular Surgery H&P Signed Patient: Lulú Gaitan MR#: [id number] : 1995 Acct:[id number] Age/Sex: 26 / F Adm Date: 2 Loc: Room: Type: [facility] Attending Dr: Tae Natarajan MD Copies to: MD Matthew Hernandez,DO~ Date of Service: 02/10/2022 HPI History of Present Illness Chief complaint: Hematuria HPI: Ms. Gaitan is a 26 year old female being evaluated by Dr. Marshall for recurrent gross hematuria. Other evaluation including CT scan has been negative and Dr. Marshall requested diagnostic arteriogram and venogram. PMFSH Vaccinated for COVID-19?: Yes Medical History (Updated [...] mg PO DAILY 02/10/22 [History Confirmed 02/10/22] tawlixlhxx-rogmvspjwulia-homghwkv 50 mg-300 mg-40 mg capsule (Fioricet) 1 [...] signed by MD Tae Natarajan> 02/10/22 1706 [facility] Work Phone: 1(253) 427-827908-29-2022 Evaluation note* Encounter Date Diagnosis Assessment Notes [...] ahead with arteriogram and venogram as requested. [facility] Other 05-15-2022 Hospital Discharge instructions* Instructions* Christine Vazquez PA-C - 10/11/2021 Take ibuprofen ifmo-ecw-mgepmwt 600 mg 3 times daily as needed for pain. Follow- up with your primary care provider and discuss additional testing if symptoms not improved. Return to the emergency room for any worsening symptoms. * Attachments The following attachments cannot be sent through Care Everywhere. * Pelvic Pain (Yakut) [facility] Work Phone: 1(990) 737-297005-03-2022 Hospital Discharge instructions Patient Education 09/29/2021 13:37:25 [...] Follow these instructions at home: Medicines Take tyoy-dlk-zjycjjy and prescription medicines only as told by [...] or the blood stops without treatment. Take xhjj-ljo-tikwyio and prescription medicines only as told by your health care provider. Drink enough fluid to keep your urine clear or pale yellow. This information is not intended to replace advice given to you by your health care provider. Make sure you discuss any questions you have with your health care provider. Document Released: 05/16/2006 Document Revised: 10/10/2019 Document Reviewed: 06/18/2017 [employer] Patient Education 2019 CAL - [employer] Follow Up Care 09/22/2021 14:13:42 With:ROLANDO DEVLIN, Rishi Ghosh, URL Address: [facility] [address] [place] [address]- Business (1) When: Unknown [facility] 04-08-2022 Hospital Discharge instructions Patient Education [...] including vitamins, herbs, eye drops, creams, and prrt-srp-htebvju medicines. Any problems you or family members [...] provider tells you to take them. ?Taking dpoi-dld-wihfsfk medicines, vitamins, herbs, and supplements. Follow instructions [...] Follow these instructions at home: Medicines Take lzff-pbc-dwcpvwq and prescription medicines only as told by [...] 05/13/2001 Document Revised: 05/08/2019 Document Reviewed: 05/08/2019 [employer] Patient Education 2020 CAL - [employer] Follow Up Care 08/07/2021 15:47:45 With:ROLANDO DEVLIN, Rishi Ghosh, URL Address: [address] [place] [address]- When: Unknown Comments:will schedule Cysto [facility] Author Karri Kamara [facility] February 06, 2023 11:04am Note Date/Time February 06, 2023 11:04am [facility] [address] [place], [place] [address] Discharge Summary Signed Patient: Lulú Gaitan MR#: [id number] : 1995 Acct:[id number] Age/Sex: 27 / F Adm Date: 3 Loc: 1S Room: 9R1574-[address]: Karri Kamara MD Copies to: [...] States she recently saw her psychiatrist at [facility] and was restarted on Latuda. 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 Midnight) call [phone] ([phone]) Stand Alone Forms: Work/School Release Form Prescriptions: [...] Follow Up: [facility] [Other] (fax:[phone]) [facility] [employer] [facility] [Outside] Matthew Lemus DO [Primary Care Provider] - (Please contact for any medical needs or concerns) Documented By: Karri Kamara MD 02/06/23 1103 Signed By: <Electronically signed by Karri Kamara MD> 02/06/23 1104 [facility] [employer] Work Phone: Evaluation + Plan note No data available for this section [facility] evaluation + Plan note Future Appointments Appointment Date:02/05/2022 09:45:00 AM Scheduled Provider:Rishi MARSHALL MD Location:[facility] Appointment Type:URO Office Visit [facility] Evaluation + Plan note Future Appointments Appointment Date:09/27/2023 10:15:00 AM Scheduled Provider:Rishi MARSHALL MD Location:[facility] Appointment Type:URO Office Visit [facility] evaluation note* Diagnosis Lower abdominal pain- Primary Abdominal pain, other specified site documented in this encounter [employer] Work Phone: evaluation note* Diagnosis Onset Date Resolution Status Hematuria acute [facility] Work Phone: evaluation note* Diagnosis Hyperemesis- Primary Persistent vomiting Pelvic cramping Unspecified symptom associated with female genital organs documented in this encounter MARTHA RITCHIE [employer] Phone: evaluation note* Diagnosis Onset Date Resolution Status Bipolar 1 disorder acute Depression acute Major depressive disorder, recurrent acute Suicidal ideation acute [facility] Work Phone: evaluation noteNo assessment information available [facility] Work Phone: evaluation note* Diagnosis Bipolar 1 disorder (CMS-HCC)- Primary Oropharyngeal dysphagia Dysphagia, oropharyngeal phase Generalized anxiety disorder with panic attacks documented [facility] encounter [facility] N[facility]ative - Reported* Type Description Date Medical History migraine headache Medical History endometriosis Medical History PCOS Medical History borderline personality disorder Medical History bipolar Medical History anxiety Medical History chronic depression Surgical History laparoscopy x3 female Surgical History umbilical hernia repair Hospitalization History 1 [facility] 2020 Hospitalization History as a child for stomach p ain [employer] [facility] [employer] Other History general Narrative - Reported* Type Description Date Medical History migraine headache Medical History endometriosis Medical History PCOS Medical History borderline personality disorder Medical History bipolar Medical History anxiety Medical History chronic depression Surgical History laparoscopy x3 female Surgical History umbilical hernia repair Hospitalization History 1 [facility] 2020 Hospitalization History as a child for stomach p ain Hospitalization History LATUDA REACTION 1 [facility] 02/02/2023 [facility] [employer] Other Hospital Discharge instructions Additional Instructions Hold Metformin for 2 days. No heavy lifting of anything over 5 pounds. No pushing or pulling. No vigorous activity. Remove dressing in 24 hours.[facility] Work Phone: Hospital Discharge instructions Additional [...] problems. -Follow up with PCP. -Office number [phone]. [facility] Work Phone: InstructionsNot on filedocumented in this encounter [facility] No data available for this section [facility] Assessments Diagnosis Gross hematuria Urgency of urination Diagnosis Gross hematuria Urgency of urination Diagnosis Gross hematuria Diagnosis Acute frontal sinusitis, recurrence not specified Diagnosis Viral URI with cough Acute upper respiratory infections of unspecified site Diagnosis Intractable nausea and vomiting Persistent vomiting Diagnosis Dysuria Gross hematuria Advance Directives No Advanced Directives Records FoundDocuments on File Type Date Recorded Patient Software Engineer Intern Expl 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 Advance Directives and Living Will Power of Urban Renewal Manager Documents on File Type Date Recorded Patient Software Engineer Intern Expl anation Advance Directives and Living Will Power of Urban Renewal Manager Documents on File Type Date Recorded Patient Software Engineer Intern Expl anation ACP-Advance Directive ACP-Power of Urban Renewal Manager Advance Directive Response Recorded Date/ Time Advance Directives No January 08, 2021 7:10pm Advance Directive Response Recorded Date/ Time Advance Directives No January 08, 2021 6:10pm Latest Code Status on File Code Status Date Activated Date Inactivated Comments Full Code 09/16/2022 12:58 PM 09/23/2022 7:09 PM Discharge Instructions * Instructions* Raina Martin RN [...] Where can you learn more? Go to [email or web address] and sign in to your [facility] account. Enter J454 in the Search Health Information box to learn more about Upper GI Endoscopy: What to Expect at Home. . 9574-9524 [employer]. Care instructions adapted under license by [employer]. This care instruction is for use with your licensed healthcare professional. If you have questions about a medical condition or this instruction, always ask your healthcare professional. [employer] disclaims any warranty or liability for your use of this information. Content Version: 9.9.760441; Last Revised: July 19, 2012 Upper GI [...] Where can you learn more? Go to [email or web address] and sign in to your [facility] account. Enter J454 in the Search Health Information box to learn more about Upper GI Endoscopy: What to Expect at Home. . 1760-8376 [employer]. Care instructions adapted under license by [employer]. This care instruction is for use with your licensed healthcare professional. If you have questions about a medical condition or this instruction, always ask your healthcare professional. [employer] disclaims any warranty or liability for your use of this information. Content Version: 9.9.298167; Last Revised: July 19, 2012 Upper GI [...] Where can you learn more? Go to [email or web address] and sign in to your [facility] account. Enter J454 in the Search [employer]inity Information box to learn more about Upper GI Endoscopy: What to Expect at Home. . 1676-6863 [employer]. Care instructions adapted under license by [employer]. This care instruction is for use with your licensed healthcare professional. If you have questions about a medical condition or this instruction, always ask your healthcare professional. [employer] disclaims any warranty or liability for your use of this information. Content Version: 9.9.284015; Last Revised: July 19, 2012 Upper GI [...] Where can you learn more? Go to [email or web address] and sign in to your [facility] account. Enter J454 in the Act[employer]ero Information box to learn more about Upper GI Endoscopy: What to Expect at Home. . [employer]. Care instructions adapted under license by [employer]. This care instruction is for use with your licensed healthcare professional. If you have questions about a medical condition or this instruction, always ask your healthcare professional. [employer] disclaims any warranty or liability for your use of this information. Content Version: 9.9.654554; Last Revised: July 19, 2012 Upper GI [...] Where can you learn more? Go to [email or web address] and sign in to your [facility] account. Enter J454 in the Search Health Information box to learn more about Upper GI Endoscopy: What to Expect at Home. . 5801-0704 [employer]. Care instructions adapted under license by [employer]. This care instruction is for use with your licensed healthcare professional. If you have questions about a medical condition or this instruction, always ask your healthcare professional. [employer] disclaims any warranty or liability for your use of this information. Content Version: 9.9.341523; Last Revised: July 19, 2012 Upper GI [...] Where can you learn more? Go to [email or web address] and sign in to your [facility] account. Enter J454 in the Search Health Information box to learn more about Upper GI Endoscopy: What to Expect at Home. . [id number] [employer]. Care instructions adapted under license by [employer]. This care instruction is for use with your licensed healthcare professional. If you have questions about a medical condition or this instruction, always ask your healthcare professional. [employer] disclaims any warranty or liability for your use of this information. Content Version: 9.9.952125; Last Revised: July 19, 2012 Upper GI [...] the day after the test, use an [id number] spray to numb your throat. Follow-up care [...] Where can you learn more? Go to [email or web address] and sign in to your [facility] account. Enter J454 in the Search Health Information box to learn more about Upper GI Endoscopy: What to Expect at Home. If you do not have an account, please click on the Sign Up Now link. Current as of: January 07, 2019Content Version: 12.4 [employer]. Care instructions adapted under license by [employer]. If you have questions about a medical condition or this instruction, always ask your healthcare professional. [employer] disclaims any warranty or liability for your use of this information. documented in this encounter* Attachments The following attachments cannot be sent through Care Everywhere. * URI (Upper Respiratory Infection): Viral (Yakut) documented in this encounter Summary Purpose Family [...] SCAN W EJECTION FRACTION Toño Blanc MD [address] [place] [address] Chief Complaint and Reason for Visit Chief [...] TRANSORAL DIAGNOSTIC EGD ESOPHAGOGASTRODUODENOSCOPY Toño Blanc MD [address] [place] [address] [facility] Reason Comments Cough pt states onset last week. PT states she is taking Prednisone and Keflex for a sinus infection Status Reason Specialty Diagnoses / Procedures Referred By Contact Referred To Contact Not Required - [facility] Diagnoses Nausea with vomiting, unspecified Procedures HC NM HEPATOBILIARY IMAGING W PHARM Toño Blanc MD [address] [place] [address] [facility] Nuclear Medicine [address] [place] [id number] Reason Comments Abdominal Cramping onset this am Vaginal Bleeding spotting onset at approx 1200, patient states she thinks she might be Reason Comments Abdominal Pain Started earlier toda y, states having contraction like pain, was leaking clear fluid, 17 weeks , has hyperemesis and on Zofran pump Reason Comments Appointment Reason Comments abd recheck Thyroid Problem Wants checked INFORMATION SOURCE (unrecogn ized section and content) DATE CREATED AUTHOR 10/15/2019 [facility] DATE CREATED AUTHOR AUTHOR'S ORGANIZ ATION 03/07/2020 [facility] DATE CREATED AUTHOR AUTHOR'S ORGANIZ ATION 07/27/2021 [facility] DATE CREATED AUTHOR AUTHOR'S ORGANIZ ATION 09/24/2022 [facility] DATE CREATED AUTHOR AUTHOR'S ORGANIZ ATION 02/12/2023 [facility] DATE CREATED AUTHOR AUTHOR'S ORGANIZ ATION 03/12/2023 [facility] DATE CREATED AUTHOR AUTHOR'S ORGANIZ ATION 05/27/2023 [facility] DATE CREATED AUTHOR AUTHOR'S ORGANIZ ATION 06/05/2023 [facility] DATE CREATED AUTHOR AUTHOR'S ORGANIZ ATION 07/04/2023 [facility] DATE CREATED AUTHOR AUTHOR'S ORGANIZ ATION 07/08/2023 [facility] DATE CREATED AUTHOR AUTHOR'S ORGANIZ ATION 07/11/2023 [facility] Scheduled Active and Recently Administ ered Medications (unrecognized section and content) Medication Order 10/09/2021 10/10/2021 10/11/2021 0.9 % sodium chloride bolus (COMPLETED) 1,000 mL (12.9 mL/kg), IntraVENous, at 495.9 mL/hr, Administer over 121 Minutes, ONCE, On 10/11/21 at 1515, For 1 dose 152 (New Bag - Prov ider: Megan Hawley [...] 1515 1528 (Given - Provid er: Megan Hawley, RN) ondansetron (ZOFRAN) injection 4 mg (COMPLETED) 4 mg, IntraVENous, ONCE, 1 dose, On 10/11/21 at 1630 1628 (Given - Provid er: Megan Hawley, RN) PRN Medication Order 10/09/2021 10/10/2021 10/11/2021 [...] Kamara MD Admit Provider, Attending Provider Active [employer] Relationship Specialty Start Date End Date Matthew Lemus [address] [place] [phone] PCP - General Internal Medicine 10/11/21 [employer] Relationship Specialty Start Date End Date Matthew Lemus [address] [place] [address] PCP - General Internal Medicine 10/11/21 Team Status: Inactive Member Role Status Dates Matthew DO Nancy Primary Care Provider Active Tae Nataraajn MD Attending Provider Active [employer] Relationship Specialty Start Date End Date Bridgette Lewis MD [address] [place] [address] PCP - General Internal Medicine 06/30/22 [employer] Relationship Specialty Start Date End Date Richard Agustin Segundocarmencita [address] [place] [phone] PCP - General 01/27/04 Team Status: Inactive Member Role Status Dates Matthew Lemus DO Primary Care Provider Active Fany Ceballos MD Attending Provider Active [employer] Relationship Specialty Start Date End Date Matthew Lemus DO [address] [place] [address] PCP - General Internal Medicine 12/19/22 Goals (unrecognized section and content) Goals may be documented in a n alternate section Source Comments (unrecognize d section and content) In the event this informatio n is protected by the Federal Confidentiality of Alcohol and Drug Abuse Patient Records regulations: The Federal rules restrict any use of the information to criminally investigate or prosecute any alcohol or drug abuse patient.[facility] FOR RECORDS PERTAINING TO PATIENTS WHO ARE [...] BE BASED ON THE PRIMARY CLINICAL RECORDS. [facility] [employer] [facility]. provides no warranty or guarantee of the accuracy or completeness of information in this document.
[2023-08-01 17:09] LABS: Age Gdln ACOG Testing Note (.); IGP, rfx Aptima HPV ASCU Note (.)
== END 2023-07-27 21:02 | disposition home or self-care (01) ==
LOC: LAB 21:01
PROVIDERS: PCP Internal Medicine; Visit Provider Obstetrics & Gynecology
DX: Z01.419 Encounter for gynecological examination (general) (routine) without abnormal findings (principal)
CPT/HCPCS: G0145

== ENCOUNTER 2023-07-29 09:24 | Day surgery (SDC) | payer OTHER, SELFPAY ==
[2023-07-15 09:28] VITALS: BP 111/64; PULSE 80; RESP 20; TEMP 36.3; O2SAT 99; BMI 25.9
[2023-07-29] VITALS (14 sets, daily range): BP systolic 91–116; BP diastolic 54–80; PULSE 56–89; RESP 12–22; TEMP 36.1–36.5; O2SAT 93–100
--- OUTSIDE RECORDS SUMMARY | 2023-07-29 09:30 | XMS_ITS | CCD ---
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 Name Role Phone Lisseth Johnson Primary Care [...] Physician DO Matthew Arango Primary Care Provider [phone] MD Tae Natarajan Attending Provider Kaleigh Guevara Primary Care Physician Bridgette Medina Primary Care Physician Julianava Maricel Gallegos Primary Care Physician Unavailab Maricel Crespo Primary Care Physician Unavailab Bridgette Bennett Primary Care Physician Julianava ilBridgette Trimble Primary Care Physician Julianava ilBridgette Trimble Primary Care Physician Bridgette Talavera MD Primary Care Provider [phone] DR MATTHEW LEMUS Primary Care Unavailable LETY ., DR PEÑA Admitting Unavailable LTEY ., DR PEÑA Attending Unavailable LETY ., [...] DR PEÑA Consulting Unavailable ZIEBER, DR KAROL Ghsoh Consulting Unavailable YUHAS, DR CASTRO Primary Care [...] Admit Provider MD Karri Kamara Attending Provider [phone] Sarah Anderson Unavailable CASEY DAVIDSON Referring Unavailable BRIDGETTE LEWIS Primary Care Unavailable BRIDGETTE LEWIS Primary Care Unavailable DEREJE VALERIO Admitting Unavailable DEREJE VALERIO Attending Unavailable VINOD CLARK Attending Unavailable BRIDGETTE LEWIS Primary Care Unavailable Asaad, Imad Unavailable DO Matthew Lemus Primary Care Provider MD Lin Imad Attending Provider Rishi MARSHALL Attending Unavailable Rishi MARSHALL Attending Unavailable BRIDGETTE LEWIS Primary Care Unavailable Rishi MARSHALL Attending Unavailable BRIDGETTE LEWIS Primary Care Unavailable JORGE LAMAS Attending Unavailable MATTHEW LEMUS Referring Unavailable MATTHEW LEMUS Primary Care Unavailable CASEY DAVIDSON Attending Unavailable CASEY DAVIDSON Attending Unavailable CASEY DAVIDSON Attending Unavailable Matthew Lemus DO Primary Care Provider [phone] Asaad, Imad Admitting Unavailable Asaad, Imad Attending [...] Propensity to adverse reactions to drug 5 [place] (16 sources) Erythromycin; Translations: [ERYTHROMYCIN] Drug Allergy 5 Itching, Dermatitis, Rash, Other (See Comments), pain [place], [place] (20 sources) Azithromycin; Translations: [azithromycin] Drug Allergy 9 Unknown (qualifier value), Swelling, Dermatitis, Rash, pain [facility] (4 sources) Bee pollen; Translations: [bee pollen] Drug Allergy Edema (finding) [facility] (4 sources) Bee/Wasp/Ant venom; Translations: [Bee Stings] Drug allergy Unknown (qualifier value) [facility] (14 sources) lamoTRIgine; Translations: [Lamictal] Drug Allergy [facility] (12 sources) lamoTRIgine; Translations: [LAMOTRIGINE] Drug Allergy 2 Swelling, Rash [facility] (1 source) Azithromycin Drug Allergy [facility] Repository (2 sources) bee venom Drug allergy (disorder) [facility] Rep[facility] (1 source) lamoTRIgine Drug Allergy [facility] Repository (7 sources) lurasidone; Translations: [LURASIDONE] Drug Allergy 3 Other (See Comments) [facility] (1 source) Azithromycin; Translations: [Zithromax Z-Oscar] Drug Allergy [facility] Repository (2 sources) BEE VENOM PROTEIN (HONEY BEE); Translations: [BEE VENOM PROTEIN (HONEY BEE)] Propensity to adverse reactions to drug (disorder) 5 [facility] Repository (1 source) Azithromycin Drug Allergy 3 [facility] Repository (1 source) lamoTRIgine Drug Allergy 3 [facility] Repository (1 source) lurasidone Drug Allergy 3 [facility] Repository Medications Current Medications Medication Drug [...] 2023 11:00pm May 18, 2023 1:58pm levonorgestrel 0.718933 mg/hr intrauterine system (1 source) Progestin, Progestin-containing [...] 09/04/21 Status: Ordered take 1 capsule by [facility] once daily in the morning phentermine 37.5 [...] Daily, # 30 cap(s), Refills(s) 0, Pharmacy: [facility]/pharmacy #[id number], 165, cm, 12/17/21 8:42:00 EDT, [...] 1 capsule by mouth every four hours Aavlflflrg-Jakcaljkedsie-Naae (Fioricet) 50-300-40 mg Capsule Discontinued 1 CAP [...] procedure, # 2 tab(s), Refills(s) 0, Pharmacy: [facility]/pharmacy #[id number], 165, cm, 12/17/21 8:42:00 EDT, [...] procedure., # 2 cap(s), Refills(s) 0, Pharmacy: [facility], 165, cm, 09/04/21 9:50:00 [...] symptomatic., # 2 tab(s), Refills(s) 0, Pharmacy: [facility]/pharmacy #[id number], 165, cm, 12/17/21 8:42:00 EDT, [...] 60 mg capsule Indications: Bipolar 1 disorder ([facility]) Take 1 capsule (60 mg total) by [...] 06-17-2022 Episodic Other aftercare (1 source) 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 Performed By: #### U HCG #### [address] 05-19-2023 L Specimen: [id number] Received: 05/20/23 Status: RUDY Bassett Num: [id number] Spec Type: Surgical Subm Dr: Fany Ceballos MD Tissues: A Duodenum - Biopsy (DUODENAL BX) B Esophagus Biopsy (ESOPHAGUS BX) Procedures: MARIELOS Gross/Micro L4/2 Age/ Patient Sex Location Account Attending Physician Lulú Gaitan 28/F [id number] Fany Ceballos MD SPEC NUM: [id number] RECD: 05/20/23 STATUS: RUDY STOVERYusra NUM: [id number] PHILIP: 05/19/23- [facility] DR: Fany Ceballos MD ENTERED: 05/20/23 [...] submitted in one cassette labeled B1. Specimen: [id number] Received: 05/20/23 Status: RUDY Bassett Num: [id number] Spec Type: Surgical Subm Dr: Fany Ceballos MD Tissues: A Duodenum - Biopsy (DUODENAL BX) B Esophagus Biopsy (ESOPHAGUS BX) Procedures: , Gross/Micro L4/2 Patient: Lulú Gaitan [id number] (Continued) Specimen: [id number] Received: 05/20/23 (Continued) Signed (signature on file) Cielo Trimble MD 05/24/23 2301 Specimen: [id number] Received: 05/20/23 Status: RUDY Bassett Num: [id number] Spec Type: Surgical Subm Dr: Fany Ceballos MD Tissues: A Duodenum - Biopsy (DUODENAL BX) B Esophagus Biopsy (ESOPHAGUS BX) Procedures: HE/4, Gross/Micro L4/2 Patient: Lulú Gaitan [id number] (Continued) Specimen: [id number] Received: 05/20/23 (Continued) Microscopic Description A. Two H E slides reviewed. The microscopic examination confirms the diagnosis. B. Two H E slides reviewed. The microscopic examination confirms the diagnosis. CPT Codes 79445r9 Specimen: [id number] Received: 05/20/23 Status: RUDY Danyelle Num: [id number] Spec Type: Surgical Subm Dr: Fany Ceballos MD Tissues: A Duodenum - Biopsy (DUODENAL BX) B Esophagus Biopsy (ESOPHAGUS BX) Procedures: KATELYNN/Mary Anne Augustin/Micro L4/2 Patient: Lulú Gaitan [id number] (Continued) Signed (signature on file) Cielo Trimble MD 05/24/23 2301 Normal [facility] CT abdomen pelvis w conon CT abdomen pelvis w con [facility] Main [place] [address] [place] [address] CT Scan Report Signed Patient: Lulú Gaitan MR#: [id number] 4 : 1995 Acct:[id number] Age/Sex: 28 / F ADM Date: 05/12/23 Loc: CT Room: Type: [facility] Attending Dr: Fany Ceballos MD Copies to: [...] Pham Jr., D.OAung05/12/2023 10:29 AM Dictation Location: [place] [address] Transcribed By: [facility] 05/12/23 1029 Dictated By: Saym Pham Jr, DO 05/12/23 1023 Signed By: 05/12/23 1029 [facility] Consent for Procedure/Surger yojami 05-11-2023 Consent for Procedure/Surgery [id number] 6#1.00TIFF [facility] Ambulatory Visit Summaryon 1 07-11-2022 Ambulatory [...] DEVLIN, Rishi Ghosh Where: [facility] Patient Educationon 12-12-20 23 Patient Education Urology [...] these instructions at home: Medicines ? Take johg-ats-fespcby and prescription medicines only as told by [...] the blood stops without treatment. ? Take kgar-adi-jdpemzu and prescription medicines only as told by your health care provider. ? Drink enough fluid to keep your urine pale yellow. This information is not intended to replace advice given to you by your health care provider. Make sure you discuss any questions you have with your health care provider. Document Revised: 01/14/2021 Document Reviewed: 01/14/2021 [employer] Patient Education ? 2022 [email or web address]. [facility] Urology Office/Clinic Noteon 05-10-2023 Urology Office/Clinic [...] Bactrim x 3 days empirically. went to [facility] [facility] next day bc blood persisted. CT [...] [facility] [address], [place] [address]- Additional Instructions: w/PVR Patient Education Hematuria, Adult I, Johana De Jesus , personally scribed for Dr. Marshall on 05/10/2023 11:52:58. . Portions of this record may have been created with voice recognition artificial intelligence software, specifically [employer], [employer] and or [employer]. Substitutions may have occurred due to the [...] Daily busPIRon (more content not included)... Normal [facility] Comment on above: Result Comment: Elec tronically Signed By: Rishi MARSHALL MD\.br\Date and Time Signed: 05/10/23 11:55 EST\.br\Electronically Co-Signed By: Johana De Jesus\.br\Date and Time Co-Signed: 05/10/23 11:53 EST RAD - MISCon 04-26-2023 RAD - MISC [id number]# 1.00TIFF Normal [facility] Lab Reportson 04-15-2023 Lab Reports [id number]# 1.00TIFF Normal [facility] Operative Reporton Operative Report [id number] #1.00TIFF Normal [facility] Lab Reportson 04-08-2023 Lab Reports [id number] #1.00TIFF Normal [facility] Insurance Correspondenceon 1 05-30-2022 Insurance Correspondence [id number] 4#1.00TIFF Normal [facility] Consent for Procedure/Surger yon 03-24-2023 Consent for Procedure/Surgery [id number]#1.00TIFF Normal [facility] CT ABDOMEN PELVIS W IV [...] Jennie Hernández MD 03/11/23 Final result Normal [facility] Cult,Urineon 03-11-2023 Cult,Urine Specimen Description .CLEAN CATCH URINE Culture NO SIGNIFICANT GROWTH Report Status FINAL 03/11/2023 Normal [facility] Comment on above: Performed By: #### U RC #### [place] [address] [place], [place] [phone] Insurance Operations Rep: Omar Segundo MD [address] [place] [phone] Insurance Operations Rep: Cholo Alicea MD CBC with Diffon 03-10-2023 Abs. Basophil 0.05 k/uL Normal 0.00-0.20 [facility] Comment on above: Performed By: #### C ALEXA CP, CK #### [address] [place] [phone] Insurance Operations Rep: Cholo Alicea MD Abs.Imm.Granulocyte <0.03 Normal 0.00-0.30 [facility] Comment on above: Performed By: #### C ALEXA CP, CK #### [address] [place] [address] Insurance Operations Rep: Cholo Alicea MD Abs.Neutrophil (Seg) 3.36 k/uL Normal 1.50-8.10 [facility] Comment on above: Performed By: #### C ALEXA CP, CK #### [address] [place] [phone] Insurance Operations Rep: Cholo Alicea MD Basophils/100 WBC (Bld) 1 % Normal 0-[address] [facility] Comment on above: Performed By: #### C DP CP, CK #### [facility] [address] [place], [place] [phone] Insurance Operations Rep: Cholo Alicea MD Eosinophils (Bld) [#/Vol] 0.05 10*3/uL Normal 0.00-0.44 [facility] Comment on above: Performed By: #### C DP, CP, CK #### [address] [place], [facility] Insurance Operations Rep: Cholo Alicea MD Eosinophils/100 WBC (Bld) 1 % Normal 1-4 [facility] Comment on above: Performed By: #### C DP, CP, CK #### [address] [place], [facility] Insurance Operations Rep: Cholo Alicea MD Erythrocyte distribution width (RBC) [Ratio] 11.9 % Normal 11.8-14.4 [facility] Comment on above: Performed By: #### C DP, CP, CK #### [address] [place], [facility] Insurance Operations Rep: Cholo Alicea MD Hematocrit (Bld) [Volume fraction] 37.5 % Normal 36.3-47.1 [facility] Comment on above: Performed By: #### C DP, CP, CK #### [address] [place], [facility] Insurance Operations Rep: Cholo Alicea MD Hemoglobin (Bld) [Mass/Vol] 12.9 g/dL Normal 11.9-15.1 [facility] Comment on above: Performed By: #### C DP, CP, CK #### [address] [place], [facility] Insurance Operations Rep: Cholo Alicea MD Immature granulocytes/100 WBC (Bld) 0 % Normal 0 [facility] Comment on above: Performed By: #### C DP, CP, CK #### [address] [place], [facility] Insurance Operations Rep: Cholo Alicea MD Lymphocytes (Bld) [#/Vol] 2.79 10*3/uL Normal 1.10-3.70 [facility] Comment on above: Performed By: #### C ALEXA CP, CK #### [facility] [address] [place] [address] Dr[place], [place] [address] Insurance Operations Rep: Cholo Alicea MD Lymphocytes/100 WBC (Bld) 42 % Normal 24-43 [facility] Comment on above: Performed By: #### C ANTONIA LIU, CK #### [address] [place], [place] [address] Insurance Operations Rep: Cholo Alicea MD MCH (RBC) [Entitic mass] 30.4 pg Normal 25.2-33.5 [facility] Comment on above: Performed By: #### C ANTONIA LIU, CK #### [address] [place], [place] [address] Insurance Operations Rep: Cholo Alicea MD MCHC (RBC) [Mass/Vol] 34.4 g/dL Normal 28.4-34.8 [facility] Comment on above: Performed By: #### C ANTONIA LIU, CK #### [address] [place] [address] Insurance Operations Rep: Cholo Alicea MD MCV (RBC) [Entitic vol] 88.2 fL Normal 82.6-102.[address] [facility] Comment on above: Performed By: #### C ANTONIA LIU, CK #### [address] [place], [facility] Insurance Operations Rep: Cholo Alicea MD Monocytes (Bld) [#/Vol] 0.46 10*3/uL Normal 0.10-1.20 [facility] Comment on above: Performed By: #### C ALEXA CP, CK #### [address] [place] [facility] Insurance Operations Rep: Cholo Alicea MD Monocytes/100 WBC (Bld) 7 % Normal 3-[address] [facility] Comment on above: Performed By: #### C ANTONIA LIU, CK #### [facility] [address] [place], [place] [phone] Insurance Operations Rep: Cholo Alicea MD Neutrophil (Seg) 49 % Normal 36-65 [facility] Comment on above: Performed By: #### C ANTONIA LIU, CK #### [facility] [address] [place], [place] [phone] Insurance Operations Rep: Cholo Alicea MD NRBC Automated 0.0 per 100 WBC Normal 0.0 [facility] Comment on above: Performed By: #### C ANTONIA LIU, CK #### [facility] [address] [place], [place] [phone] Insurance Operations Rep: Cholo Alciea MD Platelet mean volume (Bld) [Entitic vol] 10.5 fL Normal 8.1-13.5 [facility] Comment on above: Performed By: #### C ANTONIA LIU, CK #### [address] [place], [place] [phone] Insurance Operations Rep: Cholo Alicea MD Platelets (Bld) [#/Vol] 320 10*3/uL Normal 138-453 [facility] Comment on above: Performed By: #### C ANTONIA LIU, CK #### [address] [place], [place] [phone] Insurance Operations Rep: Cholo Alicea MD RBC (Bld) [#/Vol] 4.25 10*6/uL Normal 3.95-5.11 [facility] Comment on above: Performed By: #### C ANTONIA LIU, CK #### [facility] [address] [place], [place] [phone] Insurance Operations Rep: Cholo Alicea MD WBC (Bld) [#/Vol] 6.7 10*3/uL Normal 3.5-11.3 [facility] Comment on above: Performed By: #### C DP, CP, CK #### [facility] [address] [place], [place] [phone] Insurance Operations Rep: Cholo Alicea MD Comp Metabolic Profon 2022 Albumin [Mass/Vol] 4.6 g/dL Normal 3.5-5.2 [facility] Comment on above: Performed By: #### C DP, CP, CK #### [facility] [address] [place], [place] [phone] Insurance Operations Rep: Cholo Alicea MD Albumin/Glob Ratio 1.5 Normal 1.0-2.5 [facility] Comment on above: Performed By: #### C DP, CP, CK #### [address] [place], [place] [phone] Insurance Operations Rep: Cholo Alicea MD Alkaline Phos 72 U/L Normal 35-104 [facility] Comment on above: Performed By: #### C ALEXA, CP, CK #### [address] [place], [place] [phone] Insurance Operations Rep: Cholo Alicea MD ALT [Catalytic activity/Vol] 42 U/L High 5-33 [facility] Comment on above: Performed By: #### C DP, CP, CK #### [facility] [address] [place] [address] Dr[place], [place] [phone] Insurance Operations Rep: Cholo Alicea MD Anion gap [Moles/Vol] 11 mmol/L Normal 9-17 [facility] Comment on above: Performed By: #### C DP, CP, CK #### [facility] [address] [place], [place] [phone] Insurance Operations Rep: Cholo Alicea MD AST [Catalytic activity/Vol] 31 U/L Normal <32 [facility] Comment on above: Performed By: #### C DP, CP, CK #### [facility] [address] [place], [place] [phone] Insurance Operations Rep: Cholo Alicea MD Bilirubin [Mass/Vol] 0.4 mg/dL Normal 0.3-1.2 [facility] Comment on above: Performed By: #### C DP, CP, CK #### [facility] [address] [place] [address] Insurance Operations Rep: Cholo Alicea MD BUN/CRE Ratio 10 Normal 9-20 [facility] Comment on above: Performed By: #### C DP, CP, CK #### [address] [place], [place] [phone] Insurance Operations Rep: Cholo Alicea MD Calcium [Mass/Vol] 10.4 mg/dL Normal 8.6-10.4 [facility] Comment on above: Performed By: #### C DP, CP, CK #### [facility] [address] [place] [address] [place] [address] Insurance Operations Rep: Cholo lAicea MD Chloride [Moles/Vol] 101 mmol/L Normal 98-107 [facility] Comment on above: Performed By: #### C DP, CP, CK #### [address] [place], [place] [phone] Insurance Operations Rep: Cholo Alicea MD CO2 [Moles/Vol] 26 mmol/L Normal 20-31 [facility] Comment on above: Performed By: #### C DP, CP, CK #### [facility] [address] [place], [place] [phone] Insurance Operations Rep: Cholo Alicea MD Creatinine [Mass/Vol] 0.9 mg/dL Normal 0.5-0.9 [facility] Comment on above: Performed By: #### C DP, CP, CK #### [facility] [address] [place] [address] Insurance Operations Rep: Cholo Alicea MD GFR/1.73 sq M.predicted among non-blacks MDRD (S/P/Bld) [Vol rate/Area] mL/min/{1.73_m2} Normal >60 [facility] Comment on above: Result Comment: These [...] By: #### C ANTONIA LIU, CK #### [address] [place] [address] Insurance Operations Rep: Cholo Alicea MD Glucose [Mass/Vol] 97 mg/dL Normal 70-99 [facility] Comment on above: Performed By: #### C ALEXA CP, CK #### [address] [place] [address] Insurance Operations Rep: Cholo Alicea MD Potassium [Moles/Vol] 4.2 mmol/L Normal 3.7-5.3 [facility] Comment on above: Performed By: #### C ALEXA CP, CK #### [address] [place] [address] Insurance Operations Rep: Cholo Alicea MD Protein [Mass/Vol] 7.6 g/dL Normal 6.4-8.3 [facility] Comment on above: Performed By: #### C ALEXA CP, CK #### [address] [place] [address] Insurance Operations Rep: Cholo Alicea MD Sodium [Moles/Vol] 138 mmol/L Normal 135-144 [facility] Comment on above: Performed By: #### C ALEXA CP, CK #### [address] [place] [address] Insurance Operations Rep: Cholo Alicea MD Urea nitrogen [Mass/Vol] 9 mg/dL Normal 6-20 [facility] Comment on above: Performed By: #### C DP, CP, CK #### [facility] [address] [place] [address] Insurance Operations Rep: Cholo Alicea MD Creatine Kinaseon 2 CK [Catalytic activity/Vol] 51 U/L Normal 26-192 [facility] Comment on above: Performed By: #### C DP, CP, CK #### [facility] [address] [place] [address] Insurance Operations Rep: Cholo Alicea MD HCG, ,Urineon 03-108 Beta HCG ( test) Ql (U) Negative Normal NEG [facility] Comment on above: Result Comment: Spec imens with hCG levels near the threshold of the test (25 mIU/mL) may give a negative or indeterminate result. In such cases, another test should be performed with a new specimen in 48-72 hours. If early is suspected clinically in this setting, correlation with quantitative serum b-hCG level is suggested. [facility] has confirmed the use of plasma for this test. This has not been cleared or approved by the U.S. Food and Drug Administration. The FDA has determined that such clearance is not necessary. Performed By: #### U HCG, UAMIC #### [facility] [address] [place] [address] Insurance Operations Rep: Cholo Alicea MD Urinalysis w/ Microon 9 Bacteria TRACE Abnormal NONE [facility] Comment on above: Performed By: #### L IP, CDP, CP #### [facility] [address] [place] [address] Insurance Operations Rep: Cholo Alicea MD Bilirubin, SemiQt,Ur Negative Normal NEG [facility] Comment on above: Performed By: #### L IP, CDP, CP #### [facility] [address] [place] [address] Dr[place], [place] [phone] Insurance Operations Rep: Cholo Alicea MD Blood, Urine Negative Normal NEG [facility] Comment on above: Performed By: #### L IP, CDP, CP #### [facility] [address] [place] [address] Dr[place], [place] [phone] Insurance Operations Rep: Cholo Alicea MD Clarity (U) Clear Normal CLEAR [facility] Comment on above: Performed By: #### L IP, CDP, CP #### [facility] [address] [place] [address] Dr[place], [place] [phone] Insurance Operations Rep: Cholo Alicea MD Color (U) Yellow Normal YEL [facility] Comment on above: Performed By: #### L IP, CDP, CP #### [address] [place], [place] [phone] Insurance Operations Rep: Cholo Alicea MD Epithelial cells LM Ql (Urine sed) 0 TO 2 Normal 0-25 [facility] Comment on above: Performed By: #### L IP, CDP, CP #### [address] [place], [place] [phone] Insurance Operations Rep: Cholo Alicea MD Glucose Ql (U) Negative Normal NEG [facility] Comment on above: Performed By: #### L IP, CDP, CP #### [facility] [address] [place] [address] Dr[place], [place] [phone] Insurance Operations Rep: Cholo Alicea MD Ketones Ql (U) Negative Normal NEG [facility] Comment on above: Performed By: #### L IP, CDP, CP #### [facility] [address] [place] [address] Dr[place], [place] [phone] Insurance Operations Rep: Cholo Alicea MD Leukocyte esterase Test strip Ql (U) Negative Normal NEG [facility] Comment on above: Performed By: #### L IP, CDP, CP #### [address] [place], [place] [phone] Insurance Operations Rep: Cholo Alicea MD Nitrite,Ur Negative Normal NEG [facility] Comment on above: Performed By: #### L IP, CDP, CP #### [address] [place], [place] [id number] Insurance Operations Rep: Cholo Alicea MD PH,Ur 7.5 Normal 5.0-9.0 [facility] Comment on above: Performed By: #### L IP, CDP, CP #### [address] [place], [place] [phone] Insurance Operations Rep: Cholo Alicea MD Protein Ql (U) Negative Normal NEG [facility] Comment on above: Performed By: #### L IP, CDP, CP #### [address] [place] [phone] Insurance Operations Rep: Cholo Alicea MD Spec. [place],Ur 1.010 Normal 1.010-1.020 [facility] Comment on above: Performed By: #### L IP, CDP, CP #### [address] [place], [place] [phone] Insurance Operations Rep: Cholo Alicea MD Urine RBC's None Normal 0-2 [facility] Comment on above: Performed By: #### L IP, CDP, CP #### [address] [place], [place] [phone] Insurance Operations Rep: Cholo Alicea MD Urine WBC's 0 TO 2 Normal 0-5 [facility] Comment on above: Performed By: #### L IP, CDP, CP #### [address] [place], [place] [phone] Insurance Operations Rep: Cholo Alicea MD Urobilinogen,Ur Normal Normal 0.0-1.0 [facility] Comment on above: Performed By: #### L IP, CDP, CP #### [address] [place] [address] Insurance Operations Rep: Cholo Alicea MD COVID + FLU Quick Testingon 02-11-2023 SARS-CoV-2 (COVID-19) RNA ALEKSANDER+probe Ql (Unsp spec) Negative [employer] Other COVID + FLU Quick Testing Negative [employer] Other Quick Strepon 02-11-2023 S. pyogenes Org specific cx Ql (Throat) Negative [facility] [id number] Other Quick Strep [employer] Other CNPNon 02-03-2023 CNPN Telephone (GASTSP) LULÚ GAITAN ([id number]) 1995 F Date Time Provider Department 02/03/23 CHRISTINE MACIAS [facility] During your visit today, we recorded the [...] list full name of hospital or facility)? [facility] If the patient had a gastric emptying [...] G/J Tube?No Preferred phone number for contact: [phone] ? Viviana David 02/03/2023 3:38 PM Signed [...] Status:Closed by VIVIANA DAVID on 02/04/23 Normal [facility] ECG 12 lead ECGon 02-03-2023 ECG 12 lead ECG [facility] [place] [address] Electrocardiograph Report Signed Patient: Lulú Gaitan MR#: [id number] 4 : 1995 Acct:[id number] Age/Sex: 27 / F ADM Date: 02/02/23 Loc: Room: [address] [place] [address] Type: ADM IN Attending Dr: Karri Kamara [...] Charles Mauro MD 0 02/04/23 1319 Normal [facility] Alanine aminotransferase [En zymatic activity/volume] in Serum or PlasmaOrdered By: Matthew Leslie on 02-02-2023 ALT [Catalytic activity/Vol] 38 U/L 752 [facility] Albumin [Mass/volume] in Ser um or Plasma by Bromocresol green (BCG) dye binding methoOrdered By: Matthew Leslie on 02-02-2023 Albumin BCG dye [Mass/Vol] 4.6 g/dL 3.5-5.7 [facility] Alkaline phosphatase [Enzyma tic activity/volume] in Serum or PlasmaOrdered By: Matthew Leslie on 02-02-2023 ALP [Catalytic activity/Vol] 54 U/L 34-104 [facility] Amphetamine Screen Ql (U)Ord ered By: Matthew Leslie on 02-02-2023 Amphetamines Ql (U) Negative Negative [facility] Aspartate aminotransferase [ Enzymatic activity/volume] in Serum or PlasmaOrdered By: Matthew Leslie on 02-02-2023 AST [Catalytic activity/Vol] 32 U/L 13-39 [facility] Automated erythrocytes count in urine sediment (number/area)Ordered By: Matthew Leslie on 02-02-2023 RBC Auto (Urine sed) [#/Area] 10-19 [HPF] 0-4 [facility] Automated leukocytes count i n urine sediment (number/area)Ordered By: Matthew Leslie on 02-02-2023 WBC Auto (Urine sed) [#/Area] 10-19 [HPF] 0-4 [facility] Automated urine hyaline cast s count (number/volume)Ordered By: Matthew Leslie on 02-02-2023 Hyaline casts Auto (U) [#/Vol] 0-1 [LPF] 0-1 [facility] Barbiturates [Presence] in U rine by Screen methodOrdered By: Matthew Leslie on 02-02-2023 Barbiturates Screen Ql (U) Negative Negative [facility] Basophils Auto (Bld) [#/Vol] Ordered By: Matthew Leslie on 02-02-2023 Basophils (Bld) [#/Vol] 0.1 10*3/uL 0.0-0.2 [facility] Basophils/100 WBC Auto (Bld) Ordered By: Matthew Leslie on 02-02-2023 Basophils/100 WBC (Bld) 0.9 % . [facility] Benzodiazepines Screen Ql (U )Ordered By: Matthew Leslie on 02-02-2023 Benzodiazepines Ql (U) Negative Negative [facility] Benzoylecgonine [Presence] i n Urine by Screen methodOrdered By: Matthew Leslie on 02-02-2023 Benzoylecgonine Screen Ql (U) Negative Negative [facility] Bilirubin Test strip Ql (U)O rdered By: Matthew Leslie on 02-02-2023 Bilirubin Ql (U) Negative Negative [facility] Bilirubin.direct [Mass/volum e] in Serum or PlasmaOrdered By: Matthew Leslie on 02-02-2023 Bilirubin.direct [Mass/Vol] 0.10 mg/dL 0.03-0.18 [facility] Bilirubin.total [Mass/volume ] in Serum or PlasmaOrdered By: Matthew Leslie on 02-02-2023 Bilirubin [Mass/Vol] 0.6 mg/dL 0.3-1.0 [facility] Calcium [Mass/volume] in Ser um or PlasmaOrdered By: Matthew Leslie on 02-02-2023 Calcium [Mass/Vol] 9.5 mg/dL 8.6-10.3 [facility] Cannabinoids [Presence] in U rine by Screen methodOrdered By: Matthew Leslie on 02-02-2023 Cannabinoids Screen Ql (U) Negative Negative [facility] Comment on above: These are unconfirme d results and should not be used for legal purposes. Drug Cut-Off Concentration: AMPH 1000 ng/mL PONCHO 200 ng/mL KRISTAN 200 ng/mL COCM 300 ng/mL OP 300 ng/mL PCP 25 ng/mL THC 20 ng/mL Carbon dioxide, total [Moles /volume] in Serum or PlasmaOrdered By: Matthew Leslie on 02-02-2023 CO2 [Moles/Vol] 28.3 mmol/L 21.0-31.0 [facility] Casts typing in urine sedime nt by light microscopyOrdered By: Matthew Leslie on 02-02-2023 Casts LM Nom (Urine sed) None seen [LPF] None Seen [facility] Chloride [Moles/volume] in S barbra or PlasmaOrdered By: Matthew Leslie on 02-02-2023 Chloride [Moles/Vol] 107 mmol/L 98-107 [facility] Color Auto (U)Ordered By: Mariela Leslie on 02-02-2023 Color (U) Yellow Yellow [facility] Complete Blood Count Auto Di ffon 02-02-2023 Basophils (Bld) [#/Vol] 0.1 10*3/uL Normal 0.0-0.2 [facility] Comment on above: Result Comment: PERF ORMED BY: [place] [address] PATHOLOGIST SUPERINTENDENT SANITATION MOISES VELASCO M.D. Performed By: #### E TANYA, HEPATIC, TSH3 wRFLX, CBC, CMP, [id number] #### [facility] [address] [place] [address] Basophils/100 WBC (Bld) 0.9 % Normal . [facility] Comment on above: Performed By: #### E TANYA, HEPATIC, TSH3 wRFLX, CBC, CMP, [id number] #### [facility] [address] [place] [address] [place] Eosinophils (Bld) [#/Vol] 0.0 10*3/uL Normal 0.0-0.45 [facility] Comment on above: Performed By: #### E TANYA, HEPATIC, TSH3 wRFLX, CBC, CMP, [id number] #### [facility] [address] [place] [address] [place] Eosinophils/100 WBC (Bld) 0.4 % Normal . [facility] Comment on above: Performed By: #### E TANYA, HEPATIC, TSH3 wRFLX, CBC, CMP, [id number] #### [facility] [address] [place] [address] Erythrocyte distribution width (RBC) [Ratio] 12.9 % Normal 11.9-15.3 [facility] Comment on above: Performed By: #### E TANYA, HEPATIC, TSH3 wRFLX, CBC, CMP, [id number] #### [address] Hematocrit (Bld) [Volume fraction] 41.1 % Normal 34.0-46.4 [facility] Comment on above: Performed By: #### E TANYA, HEPATIC, TSH3 wRFLX, CBC, CMP, [id number] #### [address] Hemoglobin (Bld) [Mass/Vol] 13.8 g/dL Normal 11.8-15.4 [facility] Comment on above: Performed By: #### E TANYA, HEPATIC, TSH3 wRFLX, CBC, CMP, [id number] #### [address] Lymphocytes (Bld) [#/Vol] 2.7 10*3/uL Normal 1.00-4.8 [facility] Comment on above: Performed By: #### E TANYA, HEPATIC, TSH3 wRFLX, CBC, CMP, [id number] #### [address] Lymphocytes/100 WBC (Bld) 36.0 % Normal . [facility] Comment on above: Performed By: #### E TANYA, HEPATIC, TSH3 wRFLX, CBC, CMP, [id number] #### [address] MCH (RBC) [Entitic mass] 29.4 pg Normal 24.7-34.3 [facility] Comment on above: Performed By: #### E TANYA, HEPATIC, TSH3 wRFLX, CBC, CMP, [id number] #### [address] MCV (RBC) [Entitic vol] 87.6 fL Normal 80-100 [facility] Comment on above: Performed By: #### E TANYA, HEPATIC, TSH3 wRFLX, CBC, CMP, [id number] #### [address] Mean Corpuscular HGB Conc 33.6 g/dL Normal 32.0-35.0 [facility] Comment on above: Performed By: #### E TANYA, HEPATIC, TSH3 wRFLX, CBC, CMP, [id number] #### [place] [address] [place] Monocytes (Bld) [#/Vol] 0.6 10*3/uL Normal 0.0-0.8 [facility] Comment on above: Performed By: #### E TANYA, HEPATIC, TSH3 wRFLX, CBC, CMP, [id number] #### [place] [address] [place] Monocytes/100 WBC (Bld) 17.83 % Normal 0.00-20.00 [facility] Comment on above: Performed By: #### E TANYA, HEPATIC, TSH3 wRFLX, CBC, CMP, [id number] #### [place] [address] [place] Monocytes/100 WBC (Bld) 7.9 % Normal . [facility] Comment on above: Performed By: #### E TANYA, HEPATIC, TSH3 wRFLX, CBC, CMP, [id number] #### [place] [address] [place] Neutrophils (Bld) [#/Vol] 4.2 10*3/uL Normal 1.8-7.7 [facility] Comment on above: Performed By: #### E TANYA, HEPATIC, TSH3 wRFLX, CBC, CMP, [id number] #### [place] [address] [place] Neutrophils/100 WBC (Bld) 54.8 % Normal . [facility] Comment on above: Performed By: #### E TANYA, HEPATIC, TSH3 wRFLX, CBC, CMP, [id number] #### [address] NRBC% 0.0 /100{WBC} Normal 0-0.5 [facility] Comment on above: Performed By: #### E TANYA, HEPATIC, TSH3 wRFLX, CBC, CMP, [id number] #### [address] Platelet mean volume (Bld) [Entitic vol] 9.2 fL Normal 6.3-10.7 [facility] Comment on above: Performed By: #### E TANYA, HEPATIC, TSH3 wRFLX, CBC, CMP, [id number] #### [address] Platelets (Bld) [#/Vol] 322 10*3/uL Normal 150-450 [facility] Comment on above: Performed By: #### E TANYA, HEPATIC, TSH3 wRFLX, CBC, CMP, [id number] #### [address] RBC (Bld) [#/Vol] 4.70 10*6/uL Normal 3.60-5.00 [facility] Comment on above: Performed By: #### E TANYA, HEPATIC, TSH3 wRFLX, CBC, CMP, [id number] #### [address] WBC (Bld) [#/Vol] 7.6 10*3/uL Normal 3.8-11.6 [facility] Comment on above: Performed By: #### E TANYA, HEPATIC, TSH3 wRFLX, CBC, CMP, [id number] #### [address] Comprehensive Metabolic Pane akbar 02-02-2023 Albumin [Mass/Vol] 4.6 g/dL Normal 3.5-5.7 [facility] Comment on above: Performed By: #### U HCG, ADDONUAPLUS, URDS, CUU #### [facility] [address] [place] [address] Albumin/Globulin [Mass ratio] 1.4 {ratio} Normal [facility] Comment on above: Performed By: #### U HCG, ADDONUAPLUS, URDS, CUU #### [facility] [address] [place] [address] ALP [Catalytic activity/Vol] 54 U/L Normal 34-104 [facility] Comment on above: Performed By: #### U HCG, ADDONUAPLUS, URDS, CUU #### [facility] [address] [place] [address] ALT [Catalytic activity/Vol] 38 U/L Normal 7-52 [facility] Comment on above: Performed By: #### U HCG, ADDONUAPLUS, URDS, CUU #### [facility] [address] [place] [address] Anion gap [Moles/Vol] 9.5 mmol/L Normal 6.0-15.0 [facility] Comment on above: Performed By: #### U HCG, ADDONUAPLUS, URDS, CUU #### [facility] [address] [place] [address] AST [Catalytic activity/Vol] 32 U/L Normal 13-39 [facility] Comment on above: Performed By: #### U HCG, ADDONUAPLUS, URDS, CUU #### [facility] [address] [place] [address] Bilirubin [Mass/Vol] 0.6 mg/dL Normal 0.3-1.0 [facility] Comment on above: Performed By: #### U HCG, ADDONUAPLUS, URDS, CUU #### [facility] [address] [place] [address] Calcium [Mass/Vol] 9.5 mg/dL Normal 8.6-10.3 [facility] Comment on above: Performed By: #### U HCG, ADDONUAPLUS, URDS, CUU #### [address] [place] [address] [place] Chloride [Moles/Vol] 107 mmol/L Normal 98-107 [facility] Comment on above: Performed By: #### U HCG, ADDONUAPLUS, URDS, CUU #### [facility] [address] CO2 [Moles/Vol] 28.3 mmol/L Normal 21.0-31.0 [facility] Comment on above: Performed By: #### U HCG, ADDONUAPLUS, URDS, CUU #### [facility] [address] [place] [address] [place] Creatinine [Mass/Vol] 1.14 mg/dL Normal 0.60-1.20 [facility] Comment on above: Performed By: #### U HCG, ADDONUAPLUS, URDS, CUU #### [facility] [address] [place] [address] [place] Creatinine Clr Calc Pharmacy 76.05 Normal [facility] Comment on above: Result Comment: PERF ORMED BY: [place] [address] PATHOLOGIST SUPERINTENDENT SANITATION MOISES VELASCO M.D. Performed By: #### U HCG, ADDONUAPLUS, URDS, CUU #### [facility] [address] [place] [address] [place] GFR/1.73 sq M.predicted MDRD (S/P/Bld) [Vol rate/Area] mL/min/{1.73_m2} Normal [facility] Comment on above: Performed By: #### U HCG, ADDONUAPLUS, URDS, CUU #### [facility] [address] [place] [address] [place] Globulin (S) [Mass/Vol] 3.2 g/dL Normal [facility] Comment on above: Performed By: #### U HCG, ADDONUAPLUS, URDS, CUU #### [facility] [address] [place] [address] [place] Glucose [Mass/Vol] 98 mg/dL Normal 70-100 [facility] Comment on above: Result Comment: [place] om Glucose Reference Range is dependent on time and content of last meal. Glucose of more than 200 mg/dL in a nonstressed, ambulatory subject supports the diagnosis of Diabetes Mellitus. ADA recommended reference range Performed By: #### U HCG, ADDONUAPLUS, URDS, CUU #### [facility] [address] [place] [address] Potassium [Moles/Vol] 3.8 mmol/L Normal 3.5-5.1 [facility] Comment on above: Performed By: #### U HCG, ADDONUAPLUS, URDS, CUU #### [address] Protein [Mass/Vol] 7.8 g/dL Normal 6.4-8.9 [facility] Comment on above: Performed By: #### U HCG, ADDONUAPLUS, URDS, CUU #### [address] Sodium [Moles/Vol] 141 mmol/L Normal 136-145 [facility] Comment on above: Performed By: #### U HCG, ADDONUAPLUS, URDS, CUU #### [facility] [address] [place] [address] Urea nitrogen [Mass/Vol] 11 mg/dL Normal 7-25 [facility] Comment on above: Performed By: #### U HCG, ADDONUAPLUS, URDS, CUU #### [address] Creatinine [Mass/volume] in Serum or PlasmaOrdered By: Matthew Leslie on 02-02-2023 Creatinine [Mass/Vol] 1.14 mg/dL 0.60-1.20 [facility] Dipstick and Microscopicon 0 02-02-2023 Appearance (U) Cloudy Critically abnormal Clear [facility] Comment on above: Order Comment: Name Collection Type:: Clean-Voided Midstream Performed By: #### U HCG, ADDONUAPLUS, URDS, CUU #### [place] [address] [place] Bacteria,Urine 1+ High None Seen [facility] Comment on above: Order Comment: Name Collection Type:: Clean-Voided Midstream Performed By: #### U HCG, ADDONUAPLUS, URDS, CUU #### [facility] [address] [place] [address] [place] Bilirubin,Urine Negative Normal Negative [facility] Comment on above: Order Comment: Name Collection Type:: Clean-Voided Midstream Performed By: #### U HCG, ADDONUAPLUS, URDS, CUU #### [facility] [address] [place] [address] [place] Color (U) Yellow Normal Yellow [facility] Comment on above: Order Comment: Name Collection Type:: Clean-Voided Midstream Performed By: #### U HCG, ADDONUAPLUS, URDS, CUU #### [facility] [address] [place] [address] Glucose Ql (U) Normal Normal Normal [facility] Comment on above: Order Comment: Name Collection Type:: Clean-Voided Midstream Performed By: #### U HCG, ADDONUAPLUS, URDS, CUU #### [facility] [address] [place] [address] [place] Hyaline Casts,Urine 0-1 Normal 0-1 [facility] Comment on above: Order Comment: Name Collection Type:: Clean-Voided Midstream Performed By: #### U HCG, ADDONUAPLUS, URDS, CUU #### [facility] [address] [place] [address] [place] Ketones Ql (U) 2+ High Negative [facility] Comment on above: Order Comment: Name Collection Type:: Clean-Voided Midstream Performed By: #### U HCG, ADDONUAPLUS, URDS, CUU #### [facility] [address] [place] [address] [place] Leukocyte esterase Test strip Ql (U) 2+ High Negative [facility] Comment on above: Order Comment: Name Collection Type:: Clean-Voided Midstream Performed By: #### U HCG, ADDONUAPLUS, URDS, CUU #### [facility] [address] [place] [address] [place] Nitrite,Urine Negative Normal Negative [facility] Comment on above: Order Comment: Name Collection Type:: Clean-Voided Midstream Performed By: #### U HCG, ADDONUAPLUS, URDS, CUU #### [address] Occult Blood,Urine 3+ High Negative [facility] Comment on above: Order Comment: Name Collection Type:: Clean-Voided Midstream Performed By: #### U HCG, ADDONUAPLUS, URDS, CUU #### [facility] [address] [place] [address] Other Casts,Urine None Seen Normal None Seen [facility] Comment on above: Order Comment: Name Collection Type:: Clean-Voided Midstream Performed By: #### U HCG, ADDONUAPLUS, URDS, CUU #### [facility] [address] [place] [address] pH (U) 6.0 [pH] Normal 5.0-9.0 [facility] Comment on above: Order Comment: Name Collection Type:: Clean-Voided Midstream Performed By: #### U HCG, ADDONUAPLUS, URDS, CUU #### [facility] [address] [place] [address] Protein (U) [Mass/Vol] 30 mg/dL High Negative [facility] Comment on above: Order Comment: Name Collection Type:: Clean-Voided Midstream Performed By: #### U HCG, ADDONUAPLUS, URDS, CUU #### [facility] [address] [place] [address] [place] RBC,Urine 10-19 High 0-4 [facility] Comment on above: Order Comment: Name Collection Type:: Clean-Voided Midstream Performed By: #### U HCG, ADDONUAPLUS, URDS, CUU #### [facility] [address] [place] [address] Specificy [place],Urine 1.027 Normal 1.001-1.030 [facility] Comment on above: Order Comment: Name Collection Type:: Clean-Voided Midstream Performed By: #### U HCG, ADDONUAPLUS, URDS, CUU #### [facility] [address] [place] [address] [place] Squamous Epithelial Cell,Urine 3-4 High 0-2 [facility] Comment on above: Order Comment: Name Collection Type:: Clean-Voided Midstream Performed By: #### U HCG, ADDONUAPLUS, URDS, CUU #### [facility] [address] [place] [address] Urobilinogen,Urine Normal Normal Normal [facility] Comment on above: Order Comment: Name Collection Type:: Clean-Voided Midstream Performed By: #### U HCG, ADDONUAPLUS, URDS, CUU #### [facility] [address] [place] [address] WBC,Urine 10-19 High 0-4 [facility] Comment on above: Order Comment: Name Collection Type:: Clean-Voided Midstream Performed By: #### U HCG, ADDONUAPLUS, URDS, CUU #### [facility] [address] [place] [address] Yeast,Urine None Seen Normal None Seen [facility] Comment on above: Order Comment: Name Collection Type:: Clean-Voided Midstream Performed By: #### U HCG, ADDONUAPLUS, URDS, CUU #### [facility] [address] [place] [address] Drug Screen,Urineon 02-03-20 Amphetamine Screen,Urine Negative Normal Negative [facility] Comment on above: Performed By: #### U HCG, ADDONUAPLUS, URDS, CUU #### [facility] [address] [place] [address] Barbiturate Screen,Urine Negative Normal Negative [facility] Comment on above: Performed By: #### U HCG, ADDONUAPLUS, URDS, CUU #### [facility] [address] [place] [address] Benzodiazepines Screen,Urine Negative Normal Negative [facility] Comment on above: Performed By: #### U HCG, ADDONUAPLUS, URDS, CUU #### [facility] [address] [place] [address] Cannabinoid Screen,Urine Negative Normal Negative [facility] Comment on above: Result Comment: Thes e are unconfirmed results and should not be used for legal purposes. Drug Cut-Off Concentration: AMPH 1000 ng/mL PONCHO 200 ng/mL KRISTAN 200 ng/mL COCM 300 ng/mL OP 300 ng/mL PCP 25 ng/mL THC 20 ng/mL PERFORMED BY: [place] [address] PATHOLOGIST SUPERINTENDENT SANITATION MOISES VELASCO M.D. Performed By: #### U HCG, ADDONUAPLUS, URDS, CUU #### [address] Cocaine Screen,Urine Negative Normal Negative [facility] Comment on above: Performed By: #### U HCG, ADDONUAPLUS, URDS, CUU #### [address] Opiate Screen,Urine Negative Normal Negative [facility] Comment on above: Performed By: #### U HCG, ADDONUAPLUS, URDS, CUU #### [address] Phencyclidine Screen,Urine Negative Normal Negative [facility] Comment on above: Performed By: #### U HCG, ADDONUAPLUS, URDS, CUU #### [facility] [address] [place] [address] [place] Eosinophils Auto (Bld) [#/Vo l]Ordered By: Matthew Leslie on 02-02-2023 Eosinophils (Bld) [#/Vol] 0.0 10*3/uL 0.0-0.45 [facility] Eosinophils/100 WBC Auto (Bl d)Ordered By: Matthew Leslie on 02-02-2023 Eosinophils/100 WBC (Bld) 0.4 % . [facility] Erythrocyte distribution wid th Auto (RBC) [Ratio]Ordered By: Matthew Leslie on 02-02-2023 Erythrocyte distribution width (RBC) [Ratio] 12.9 % 11.9-15.3 [facility] Ethanol [Mass/volume] in Ser um or PlasmaOrdered By: Matthew Leslie on 02-02-2023 Ethanol [Mass/Vol] mg/dL [facility] Ethanol [Mass/Vol] TNP [facility] Comment on above: Test not performed Ethyl Alcohol Profileon Ethanol [Mass/Vol] mg/dL Normal [facility] Comment on above: Performed By: #### E TANYA, HEPATIC, TSH3 wRFLX, CBC, CMP, [id number] #### [facility] [address] Percent Ethanol Not performed Normal [facility] Comment on above: Result Comment: PERF ORMED BY: [place] [address] PATHOLOGIST SUPERINTENDENT SANITATION MOISES VELASCO M.D. Performed By: #### E TANYA, HEPATIC, TSH3 wRFLX, CBC, CMP, [id number] #### [facility] [address] Globulin Calc (S) [Mass/Vol] Ordered By: Matthew Leslie on 02-02-2023 Globulin (S) [Mass/Vol] 3.2 g/dL [facility] Glucose [Mass/volume] in Ser um or PlasmaOrdered By: Matthew Leslie on 02-02-2023 Glucose [Mass/Vol] 98 mg/dL 70-100 [facility] Comment on above: ADA recommended refe rence rangeRandom Glucose Reference Range is dependent on time and content of last meal. Glucose of more than 200 mg/dL in a nonstressed, ambulatory subject supports the diagnosis of Diabetes Mellitus. HCG ( test) IA.nikkii d Ql (U)Ordered By: Matthew Leslie on 02-02-2023 HCG ( test) Ql (U) Negative [facility] HCG,Urineon 02-02-2023 Beta HCG ( test) Ql (U) Negative Normal [facility] Comment on above: Order Comment: Name Collection Type:: Clean-Voided Midstream Result Comment: PERF ORMED BY: [place] [address] PATHOLOGIST SUPERINTENDENT SANITATION MOISES VELASCO M.D. Performed By: #### U HCG, ADDONUAPLUS, URDS, CUU #### [facility] [address] Hematocrit Auto (Bld) [Volum e fraction]Ordered By: Matthew Leslie on 02-02-2023 Hematocrit (Bld) [Volume fraction] 41.1 % 34.0-46.4 [facility] Hemoglobin [Mass/volume] in BloodOrdered By: Matthew Leslie on 02-02-2023 Hemoglobin (Bld) [Mass/Vol] 13.8 g/dL 11.8-15.4 [facility] Hepatic Panelon 02-02-2023 Bilirubin,Indirect 0.5 mg/dL Normal [facility] Comment on above: Performed By: #### U HCG, ADDONUAPLUS, URDS, CUU #### [facility] [address] Bilirubin.indirect [Mass/Vol] 0.10 mg/dL Normal 0.03-0.18 [facility] Comment on above: Performed By: #### U HCG, ADDONUAPLUS, URDS, CUU #### [facility] [address] Ketones Auto test strip (U) [Mass/Vol]Ordered By: Matthew Leslie on 02-02-2023 Ketones (U) [Mass/Vol] 2+ Negative [facility] Leukocytes [#/volume] correc alberto for nucleated erythrocytes in Blood by Automated counOrdered By: Matthew Leslie on 02-02-2023 WBC corrected for nucl RBC Auto (Bld) [#/Vol] 7.6 10*3/uL 3.8-11.6 [facility] Lymphocytes Auto (Bld) [#/Vo l]Ordered By: Matthew Leslie on 02-02-2023 Lymphocytes (Bld) [#/Vol] 2.7 10*3/uL 1.00-4.8 [facility] Lymphocytes/100 WBC Auto (Bl d)Ordered By: Matthew Leslie on 02-02-2023 Lymphocytes/100 WBC (Bld) 36.0 % . [facility] MCH Auto (RBC) [Entitic mass ]Ordered By: Matthew Leslie on 02-02-2023 MCH (RBC) [Entitic mass] 29.4 pg 24.7-34.3 [facility] MCHC Auto (RBC) [Mass/Vol]Or dered By: Matthew Leslie on 02-02-2023 MCHC (RBC) [Mass/Vol] 33.6 g/dL 32.0-35.0 Fir [facility] MCV Auto (RBC) [Entitic vol] Ordered By: Matthew Leslie on 02-02-2023 MCV (RBC) [Entitic vol] 87.6 fL 80-100 [facility] Monocyte distribution width [Entitic volume] in Blood by AutomatedOrdered By: Matthew Leslie on 02-02-2023 Monocyte distribution width Auto (Bld) [Entitic vol] 17.83 % 0.00-20.00 [facility] Monocytes Auto (Bld) [#/Vol] Ordered By: Matthew Leslie on 02-02-2023 Monocytes (Bld) [#/Vol] 0.6 10*3/uL 0.0-0.8 [facility] Monocytes/100 WBC Auto (Bld) Ordered By: Matthew Leslie on 02-02-2023 Monocytes/100 WBC (Bld) 7.9 % . F [facility] Neutrophils Auto (Bld) [#/Vo l]Ordered By: Matthew Leslie on 02-02-2023 Neutrophils (Bld) [#/Vol] 4.2 10*3/uL 1.8-7.7 [facility] Neutrophils/100 WBC Auto (Bl d)Ordered By: Matthew Leslie on 02-02-2023 Neutrophils/100 WBC (Bld) 54.8 % . [facility] Nitrite Test strip Ql (U)Ord ered By: Matthew Leslie on 02-02-2023 Nitrite Ql (U) Negative Negative [facility] No Panel InformationOrdered By: Matthew Leslie on 02-02-2023 Estimated GFR (CKD-EPI) > 60.0 mL/Min [facility] Creatinine Clearance (Chem 76.05 [facility] Nucleated erythrocytes [Pres ence] in Blood by Automated countOrdered By: Matthew Leslie on 09-06-2023 Nucleated RBC Auto Ql (Bld) 0.0 /100{WBC} 0-0.5 [facility] Opiates [Presence] in Urine by Screen methodOrdered By: Matthew Leslie on 02-02-2023 Opiates Screen Ql (U) Negative Negative [facility] Phencyclidine Screen Ql (U)O rdered By: Matthew Leslie on 02-02-2023 Phencyclidine Ql (U) Negative Negative [facility] Platelet mean volume Auto (B ld) [Entitic vol]Ordered By: Matthew Leslie on 02-02-2023 Platelet mean volume (Bld) [Entitic vol] 9.2 fL 6.3-10.7 [facility] Platelets Auto (Bld) [#/Vol] Ordered By: Matthew Leslie on 02-02-2023 Platelets (Bld) [#/Vol] 322 10*3/uL 150-450 [facility] Potassium [Moles/volume] in Serum or PlasmaOrdered By: Matthew Leslie on 02-02-2023 Potassium [Moles/Vol] 3.8 mmol/L 3.5-5.1 [facility] Protein Auto test strip (U) [Mass/Vol]Ordered By: Matthew Leslie on 02-02-2023 Protein (U) [Mass/Vol] 30 mg/dL Negative [facility] Protein [Mass/volume] in Ser um or PlasmaOrdered By: Matthew Leslie on 02-02-2023 Protein [Mass/Vol] 7.8 g/dL 6.4-8.9 [facility] RBC Auto (Bld) [#/Vol]Ordere d By: Matthew Leslie on 02-02-2023 RBC (Bld) [#/Vol] 4.70 10*6/uL 3.60-5.00 [facility] Serum or plasma albumin/glob ulin mass ratioOrdered By: Matthew Leslie on 02-02-2023 Albumin/Globulin [Mass ratio] 1.4 {ratio} [facility] Serum or plasma anion gap de terminationOrdered By: Matthew Leslie on 02-02-2023 Anion gap [Moles/Vol] 9.5 mmol/L 6.0-15.0 [facility] Serum or plasma non-glucuron idated bilirubin measurement (mass/volume)Ordered By: Matthew Leslie on 02-02-2023 Bilirubin.indirect [Mass/Vol] 0.5 mg/dL [facility] Sodium [Moles/volume] in Ser um or PlasmaOrdered By: Matthew Leslie on 02-02-2023 Sodium [Moles/Vol] 141 mmol/L 136-145 [facility] Specific gravity Auto test s trip (U) [Rel density]Ordered By: Matthew Leslie on 02-02-2023 Specific gravity (U) [Rel density] 1.027 1.001-1.030 [facility] Squamous epithelial cells de tection in urine sediment by light microscopyOrdered By: Matthew Leslie on 02-02-2023 Epithelial cells.squamous LM Ql (Urine sed) 3-4 [HPF] 0-2 [facility] Thyroid Stim Hormone w/Rflxo n 02-02-2023 Thyroid Stim Hormone w/Rflx 3.74 u[iU]/mL Normal 0.45-5.33 [facility] Comment on above: Performed By: #### U HCG, ADDONUAPLUS, URDS, CUU #### [facility] [address] Thyrotropin [Units/volume] i n Serum or PlasmaOrdered By: Matthew Leslie on 02-02-2023 TSH Qn 3.74 m[IU]/L 0.45-5.33 [facility] Urea nitrogen [Mass/volume] in Serum or PlasmaOrdered By: Matthew Leslie on 02-02-2023 Urea nitrogen [Mass/Vol] 11 mg/dL 7-25 [facility] Urine Cultureon 02-02-2023 Bacteria identified Cx Nom (U) No Growth 2 Days PERFORMED BY: [place] [address] PATHOLOGIST SUPERINTENDENT SANITATION MOISES VELASCO M.D. Normal [facility] Comment on above: Performed By: #### U HCG, ADDONUAPLUS, URDS, CUU #### [facility] [address] Urine bacteria detection by automated methodOrdered By: Matthew Leslie on 02-02-2023 Bacteria Auto Ql (U) 1+ None Seen [facility] Urine clarity by refractomet ry automatedOrdered By: Matthew Leslie on 02-02-2023 Clarity Refractometry automated (U) Cloudy Clear [facility] Urine culture routineOrdered By: Matthew Leslie on 02-02-2023 Bacteria identified Cx Nom (U) No Growth 2 Days [facility] Urine glucose measurement by automated test strip (mass/volume)Ordered By: Matthew Leslie on 02-02-2023 Glucose Auto test strip (U) [Mass/Vol] Normal mg/dL Normal [facility] Urine hemoglobin detection b y automated test stripOrdered By: Matthew Leslie on 02-02-2023 Hemoglobin Auto test strip Ql (U) 3+ Negative [facility] Urine leukocyte esterase det ection by automated test stripOrdered By: Matthew Leslie on 02-02-2023 Leukocyte esterase Auto test strip Ql (U) 2+ Negative [facility] Urobilinogen Auto test strip (U) [Mass/Vol]Ordered By: Matthew Leslie on 02-02-2023 Urobilinogen (U) [Mass/Vol] Normal mg/dL Normal [facility] Vitamin D 25 Hydroxy Totalon 02-02-2023 Vitamin D 25 Hydroxy Total 54.2 ng/mL Normal 30-100 [facility] Comment on above: Result Comment: MABLE MIN D STATUS 25(OH)VITAMIN D RANGE (ng/mL) Deficient <20 Insufficient 20 to <30 Sufficient 30 to 100 Reference: Miri MF,Nimisha NC, Luisa MCCRACKEN, et al. Evaluation,treatment, and prevention of vitamin D deficiency; an Endocrine Society clinical practice guideline. JCEM. 2010; 96(7):1911-30. PERFORMED BY: [place] [address] PATHOLOGIST SUPERINTENDENT SANITATION MOISES VELASCO M.D. Performed By: #### U MARICRUZ MCCARTNEY URDS CUU #### [address] Vitamin D+Metabolites [Mass/ volume] in Serum or PlasmaOrdered By: Matthew Leslie on 02-02-2023 Vitamin D+Metabolites [Mass/Vol] 54.2 ng/mL 30-100 [facility] Comment on above: VITAMIN D STATUS 25( [place])VITAMIN D RANGE (ng/mL) Deficient <20 Insufficient 20 to <30Sufficient 30 to 100Reference: Miri MF,Nimisha NC, Luisa MCCRACKEN, et al. Evaluation,treatment, and prevention of vitamin D deficiency; an Endocrine Society clinical practice guideline. JCEM. 2010; 96(7):1911-30. WBC Auto (Bld) [#/Vol]Ordere d By: Matthew Leslie on 02-02-2023 WBC (Bld) [#/Vol] 7.6 10*3/uL 3.8-11.6 [facility] Yeast detection in urine sed iment by light microscopyOrdered By: Matthew Leslie on 02-02-2023 Yeast LM Ql (Urine sed) None seen [HPF] None Se en [facility] pH Auto test strip (U)Ordere d By: Matthew Lelsie on 02-02-2023 pH (U) 6.0 [pH] 5.0-9.0 [facility] AMNISUREon 09-16-2022 AMNISURE Positive Abnormal NEGATIVE [facility] Comment on above: Performed By: #### A MNI #### [facility] [address] [place] [address] Dr. Adrianna Caldera CBC AUTO DIFFon 09-16-2022 BASO # 0.1 103/ul Normal 0.0-0.1 [facility] Comment on above: Performed By: #### C BC #### [facility] [address] [place] [address] Dr. Adrianna Caldera Basophils/100 WBC (Bld) 0.4 % Normal 0.2-2.0 [facility] Comment on above: Performed By: #### C BC #### [facility] [address] [place] [address] Dr. Adrianna Caldera EO # 0.0 103/ul Normal 0.0-0.7 [facility] Comment on above: Performed By: #### C BC #### [facility] [address] [place] [address] Dr. Adrianna Caldera Eosinophils/100 WBC (Bld) 0.1 % Critically low 0.9-7.0 [facility] Comment on above: Performed By: #### C BC #### [facility] [address] [place] [address] Dr. Adrianna Caldera Erythrocyte distribution width (RBC) [Ratio] 12.3 % Normal 11.0-15.0 [facility] Comment on above: Performed By: #### C BC #### [facility] [address] [place] [address] Dr. Adrianna Caldera Hematocrit (Bld) [Volume fraction] 38.3 % Normal 36.0-48.0 [facility] Comment on above: Performed By: #### C BC #### [facility] [address] [place] [address] Dr. Adrianna Caldera Hemoglobin (Bld) [Mass/Vol] 12.8 g/dL Normal 12.0-16.0 [facility] Comment on above: Performed By: #### C BC #### [facility] [address] [place] [address] Dr. Adrianna Caldera IG # 0.20 10e3/ul Critically high 0.00-0.03 [facility] Comment on above: Performed By: #### C BC #### [facility] [address] [place] [address] Dr. Adrianna Caldera IG % 1.0 % Critically high 0.0-0.5 [facility] Comment on above: Performed By: #### C BC #### [facility] [address] [place] [address] Dr. Adrianna Caldera LYMPH # 1.5 103/ul Normal 1.2-3.8 [facility] Comment on above: Performed By: #### C BC #### [facility] [address] [place] [address] Dr. Adrianna Caldera Lymphocytes/100 WBC (Bld) 7.7 % Critically low 20.5-60.0 [facility] Comment on above: Performed By: #### C BC #### [facility] [address] [place] [address] Dr. Adrianna Caldera MANUAL DIFF REQ NO Normal [facility] Comment on above: Performed By: #### C BC #### [facility] [address] [address] [address] Adrianna Caldera MCH (RBC) [Entitic mass] 28.9 pg Normal 26.7-34.0 [facility] Comment on above: Performed By: #### C BC #### [facility] [address] [place] [address] Dr. Adrianna Caldera MCHC (RBC) [Mass/Vol] 33.4 g/dL Normal 29.9-35.2 [facility] Comment on above: Performed By: #### C BC #### [facility] [address] [place] [address] Dr. Adrianna Caldera MCV (RBC) [Entitic vol] 86.5 fL Normal 81.0-99.0 [facility] Comment on above: Performed By: #### C BC #### [facility] [address] [place] [address] Dr. Adrianna Caldera MONO # 0.3 103/ul Normal 0.3-0.8 [facility] Comment on above: Performed By: #### C BC #### [facility] [address] [place] [address] Dr. Adrianna Caldera Monocytes/100 WBC (Bld) 1.7 % Normal 1.7-12.0 [facility] Comment on above: Performed By: #### C BC #### [facility] [address] [place] [address] Dr. Adrianna Caldera NEUT # 17.5 103/ul Critically high 1.4-6.5 [facility] Comment on above: Performed By: #### C BC #### [facility] [address] [place] [address] Dr. Adrianna Caldera Neutrophils/100 WBC (Bld) 89.1 % Critically high 43.0-75.0 [facility] Comment on above: Performed By: #### C BC #### [facility] [address] [place] [address] Dr. Adrianna Caldera Platelet mean volume (Bld) [Entitic vol] 10.7 fL Normal 9.5-13.5 [facility] Comment on above: Performed By: #### C BC #### [facility] [address] [place] [address] Dr. Adrianna Caldera PLT 356 103/ul Normal 150-450 [facility] Comment on above: Performed By: #### C BC #### [facility] [address] [place] [address] Dr. Adrianna Caldera RBC 4.43 106/ul Normal 4.20-5.40 [facility] Comment on above: Performed By: #### C BC #### [facility] [address] [place] [address] Dr. Adrianna Caldera WBC 19.6 103/ul Critically high 4.0-11.0 [facility] Comment on above: Performed By: #### C BC #### [facility] [address] [place] [address] Dr. Adrianna Caldera UA (CLEAN/CATCH) INCOME AUDITOR/MICRO I F IND.on 09-16-2022 Bilirubin Ql (U) Negative Normal NEGATIVE [facility] Comment on above: Performed By: #### U ACSIND #### [facility] [address] [place] [address] Dr. Adrianna Caldera Clarity (U) CLEAR Normal CLEAR [facility] Comment on above: Performed By: #### U ACSIND #### [facility] [address] [place] [address] Dr. Adrianna Caldera Color (U) LT. YELLOW Normal YELLOW [facility] Comment on above: Performed By: #### U ACSIND #### [facility] [address] [place] [address] Dr. Adrianna Caldera Glucose Ql (U) Negative Normal NEGATIVE [facility] Comment on above: Performed By: #### U ACSIND #### [facility] [address] [place] [address] Dr. Adrianna Caldera Hemoglobin Ql (U) Negative Normal NEGATIVE [facility] Comment on above: Performed By: #### U ACSIND #### [facility] [address] [place] [address] Dr. Adrianna Caldera Ketones Ql (U) Negative Normal NEGATIVE [facility] Comment on above: Performed By: #### U ACSIND #### [facility] [address] [address] [address] Adrianna Caldera LEUKOCYTES Negative Normal NEGATIVE [facility] Comment on above: Performed By: #### U ACSIND #### [facility] [address] [address] [address] Adrianna Caldera Nitrite Ql (U) Negative Normal NEGATIVE [facility] Comment on above: Performed By: #### U ACSIND #### [facility] [address] [address] [address] Adrianna Caldera pH (U) 5.5 [pH] Normal 5-9 [facility] Comment on above: Performed By: #### U ACSIND #### [facility] [address] [place] [address] Dr. Adrianna Caldera SPEC GRAVITY 1.010 Normal 1.005-<=1.0 25 [facility] Comment on above: Performed By: #### U ACSIND #### [facility] [address] [place] [address] Dr. Adrianna Caldera UA PROTEIN Negative Normal NEGATIVE/ TRACE [facility] Comment on above: Performed By: #### U ACSIND #### [facility] [address] [address] [address] Adrianna Caldera UR MICRO IND NOT INDICATED Normal [facility] Comment on above: Performed By: #### U ACSIND #### [facility] [address] [place] [address] Dr. Adrianna Caldera Urobilinogen Qn (U) 0.2 {Micheal'U}/dL Normal 0.2 - 1. 0 [facility] Comment on above: Performed By: #### U ACSIND #### [facility] [address] [place] [address] Dr. Adrianna Caldera US PREG GROWTHon 09-16-2022 [...] KAROL SIDDIQUI Date: 2022-09-16 15:19 Normal [facility] UA (CLEAN/CATCH) INCOME AUDITOR/MICRO I F IND.on 09-04-2022 Bilirubin Ql (U) Negative Normal NEGATIVE [facility] Comment on above: Performed By: #### U ACSIND ####[facility] [address] [place], [place] [address]Dr. Adrianna Caldera Clarity (U) CLEAR Normal CLEAR [facility] Comment on above: Performed By: #### U ACSIND ####[facility] [address] [place], [place] [address]Dr. Adrianna Caldera Color (U) LT. YELLOW Normal YELLOW [facility] Comment on above: Performed By: #### U ACSIND ####[facility] [address] [place], [place] [address]Dr. Adrianna Caldera Glucose Ql (U) Negative Normal NEGATIVE [facility] Comment on above: Performed By: #### U ACSIND ####[facility] [address] [address]Dr. Adrianna Caldera Hemoglobin Ql (U) Negative Normal NEGATIVE [facility] Comment on above: Performed By: #### U ACSIND ####[facility] [address] [address]Dr. Adrianna Caldera Ketones Ql (U) Negative Normal NEGATIVE [facility] Comment on above: Performed By: #### U ACSIND ####[facility] [address] [address]Dr. Adrianna Werner LEUKOCYTES Negative Normal NEGATIVE [facility] Comment on above: Performed By: #### U ACSIND ####[facility] [address] [address]Dr. Adrianna Caldera Nitrite Ql (U) Negative Normal NEGATIVE [facility] Comment on above: Performed By: #### U ACSIND ####[facility] [address] [address]Dr. Jemimabenito Werner pH (U) 7.5 [pH] Normal 5-9 [facility] Comment on above: Performed By: #### U ACSIND ####[facility] [address] [place], [place] [address]Dr. Jemimabenito Werner SPEC GRAVITY 1.010 Normal 1.005-<=1.0 25 [facility] Comment on above: Performed By: #### U ACSIND ####[facility] [address] [address]Dr. Adrianna Caldera UA PROTEIN Negative Normal NEGATIVE/ TRACE [facility] Comment on above: Performed By: #### U ACSIND ####[facility] [address] [place], [place] [address]Dr. Adrianna Caldera UR MICRO IND NOT INDICATED Normal [facility] Comment on above: Performed By: #### U ACSIND ####[facility] [address] [address]Dr. Adrianna Caldera Urobilinogen Qn (U) 0.2 {Micheal'U}/dL Normal 0.2 - 1. 0 [facility] Comment on above: Performed By: #### U ACSIND ####[facility] [address] [address]Dr. Adrianna Caldera GTT 3 HR PREGon 08-30-2022 Glucose [Mass/Vol] 88 mg/dL Normal 74-106 [facility] Comment on above: Performed By: #### G TT3P ####[facility] [address] [place], [place] [address]Dr. Adrianna Caldera Glucose [Mass/Vol] 167 mg/dL Normal [facility] Comment on above: Performed By: #### G TT3P ####[facility] [address] [place], [place] [address]Vb. Adrianna Caldera Glucose [Mass/Vol] 136 mg/dL Normal [facility] Comment on above: Performed By: #### G TT3P ####[facility] [address] [place], [place] [address]Ol. Adrianna Caldera Glucose [Mass/Vol] 144 mg/dL Normal [facility] Comment on above: Performed By: #### G TT3P ####[facility] [address] [place], [place] [address]Qj. Adrianna Caldera US PREG PLACENTAon 3 US [...] KAROL SIDDIQUI Date: 2022-08-17 15:46 Normal [facility] CBC with Diffon 08-10-2022 Abs. Basophil 0.04 k/uL Normal 0.00-0.20 [facility] Comment on above: Performed By: #### L TATA LOPEZ, CP #### [facility] [address] [place] [address] [place] [address] Insurance Operations Rep: Cholo Alicea MD Abs.Imm.Granulocyte 0.10 k/uL Normal 0.00-0.30 [facility] Comment on above: Performed By: #### L TATA LOPEZ, CP #### [address] [place] [address] Insurance Operations Rep: Cholo Alicea MD Abs.Neutrophil (Seg) 9.26 k/uL High 1.50-8.10 [facility] Comment on above: Performed By: #### L TATA LOPEZ, CP #### [address] [place], [place] [id number] Insurance Operations Rep: Cholo Alicea MD Basophils/100 WBC (Bld) 0 % Normal 0-[address] [facility] Comment on above: Performed By: #### L IP, CDP, CP #### [address] [place], [id number] Insurance Operations Rep: Cholo Alicea MD Eosinophils (Bld) [#/Vol] 0.05 10*3/uL Normal 0.00-0.44 [facility] Comment on above: Performed By: #### L IP, CDP, CP #### [address] [place], [place] [address] Insurance Operations Rep: Cholo Alicea MD Eosinophils/100 WBC (Bld) 0 % Low 1-4 [facility] Comment on above: Performed By: #### L IP, CDP, CP #### [address] [place], [place] [address] Insurance Operations Rep: Cholo Alicea MD Erythrocyte distribution width (RBC) [Ratio] 12.5 % Normal 11.8-14.4 [facility] Comment on above: Performed By: #### L IP, CDP, CP #### [address] [place], [facility] Insurance Operations Rep: Cholo Alicea MD Hematocrit (Bld) [Volume fraction] 35.2 % Low 36.3-47.1 [facility] Comment on above: Performed By: #### L IP, CDP, CP #### [address] [place], [facility] Insurance Operations Rep: Cholo Alicea MD Hemoglobin (Bld) [Mass/Vol] 11.6 g/dL Low 11.9-15.1 [facility] Comment on above: Performed By: #### L IP, CDP, CP #### [address] [place], [id number] Insurance Operations Rep: Cholo Alicea MD Immature granulocytes/100 WBC (Bld) 1 % High 0 [facility] Comment on above: Performed By: #### L IP, CDP, CP #### [facility] [address] [place], [place] [id number] Insurance Operations Rep: Cholo Alicea MD Lymphocytes (Bld) [#/Vol] 1.99 10*3/uL Normal 1.10-3.70 [place] [facility] Comment on above: Performed By: #### L IP, CDP, CP #### [address] [place] [phone] Insurance Operations Rep: Cholo Alicea MD Lymphocytes/100 WBC (Bld) 17 % Low 24-43 [facility] Comment on above: Performed By: #### L IP, CDP, CP #### [address] [place], [id number] Insurance Operations Rep: Cholo Alicea MD MCH (RBC) [Entitic mass] 30.8 pg Normal 25.2-33.5 [facility] Comment on above: Performed By: #### L IP, CDP, CP #### [address] [place] [phone] Insurance Operations Rep: Cholo Alicea MD MCHC (RBC) [Mass/Vol] 33.0 g/dL Normal 28.4-34.8 [facility] Comment on above: Performed By: #### L IP, CDP, CP #### [facility] [address] [place] [address] Dr. [place], [id number] Insurance Operations Rep: Cholo Alicea MD MCV (RBC) [Entitic vol] 93.4 fL Normal 82.6-102.[address] [facility] Comment on above: Performed By: #### L IP, CDP, CP #### [address] [place] [address] Insurance Operations Rep: Cholo Alicea MD Monocytes (Bld) [#/Vol] 0.43 10*3/uL Normal 0.10-1.20 [facility] Comment on above: Performed By: #### L IP, CDP, CP #### [facility] [address] [place], [place] [phone] Insurance Operations Rep: Cholo Alicea MD Monocytes/100 WBC (Bld) 4 % Normal 3-[address] [facility] Comment on above: Performed By: #### L IP, CDP, CP #### [facility] [address] [place] [address] Insurance Operations Rep: Cholo Alicea MD Neutrophil (Seg) 78 % High 36-65 [facility] Comment on above: Performed By: #### L IP, CDP, CP #### [facility] [address] [place], [place] [phone] Insurance Operations Rep: Cholo Alicea MD NRBC Automated 0.0 per 100 WBC Normal 0.0 [facility] Comment on above: Performed By: #### L IP CDP, CP #### [facility] [address] [place] [address] [place], [place] [phone] Insurance Operations Rep: Cholo Alicea MD Platelet mean volume (Bld) [Entitic vol] 10.6 fL Normal 8.1-13.5 [facility] Comment on above: Performed By: #### L IP, CDP, CP #### [facility] [address] [place] [address] [place] [address] Insurance Operations Rep: Cholo Alicea MD Platelets (Bld) [#/Vol] 333 10*3/uL Normal 138-453 [facility] Comment on above: Performed By: #### L IP, CDP, CP #### [facility] [address] [place] [address] Insurance Operations Rep: Cholo Alicea MD RBC (Bld) [#/Vol] 3.77 10*6/uL Low 3.95-5.11 [facility] Comment on above: Performed By: #### L IP, CDP, CP #### [facility] [address] [place] [address] Insurance Operations Rep: Cholo Alicea MD WBC (Bld) [#/Vol] 11.9 10*3/uL High 3.5-11.3 [facility] Comment on above: Performed By: #### L IP, CDP, CP #### [facility] [address] [place] [address] Insurance Operations Rep: Cholo Alicea MD Glucose Andrae Scr 50gon 2022 Glucose [Mass/Vol] 161 mg/dL High 70-135 [facility] Comment on above: Performed By: #### L IP, CDP, CP #### [facility] [address] [place] [address] Insurance Operations Rep: Cholo Alicea MD Glu Administered via Glucola Normal [facility] Comment on above: Performed By: #### L IP, CDP, CP #### [facility] [address] [place] [address] Insurance Operations Rep: Cholo Alicea MD UA (CLEAN/CATCH) INCOME AUDITOR/MICRO I F IND.on 07-21-2022 Bilirubin Ql (U) Negative Normal NEGATIVE [facility] Comment on above: Performed By: #### U ACSIND ####[facility] [address] [place] [address]Dr. Adrianna Caldera Clarity (U) CLEAR Normal CLEAR [facility] Comment on above: Performed By: #### U ACSIND ####[facility] [address] [place] [address]Dr. Adrianna Caldera Color (U) LT. YELLOW Normal YELLOW [facility] Comment on above: Performed By: #### U ACSIND ####[facility] [address] [place] [address]Dr. Adrianna Caldera Glucose Ql (U) Negative Normal NEGATIVE [facility] Comment on above: Performed By: #### U ACSIND ####[facility] [address] [place] [address]Dr. Adrianna Caldera Hemoglobin Ql (U) Negative Normal NEGATIVE [facility] Comment on above: Performed By: #### U ACSIND ####[facility] [address] [place] [address]Dr. Jemimabenito Caldera Ketones Ql (U) Negative Normal NEGATIVE [facility] Comment on above: Performed By: #### U ACSIND ####[facility] T[address] [place], [place] [address]Dr. Jemimabenito Caldera LEUKOCYTES Negative Normal NEGATIVE [facility] Comment on above: Performed By: #### U ACSIND ####[facility] F[address] [place], [place] [address]Dr. Jemimabenito Werner Nitrite Ql (U) Negative Normal NEGATIVE [facility] Comment on above: Performed By: #### U ACSIND ####[facility] [address] [place], [place] [address]Dr. Adrianna Caldera pH (U) 7.0 [pH] Normal 5-9 [facility] Comment on above: Performed By: #### U ACSIND ####[facility] J[address] [place], [place] [address]Dr. Jemimabenito Werner SPEC GRAVITY 1.010 Normal 1.005-<=1.0 25 [facility] Comment on above: Performed By: #### U ACSIND ####[facility] P[address] [place], [place] [address]Dr. Adrianna Caldera UA PROTEIN Negative Normal NEGATIVE/ TRACE [facility] Comment on above: Performed By: #### U ACSIND ####[facility] Qxhdwc[address]wi[address] [place], [place] [address]Dr. Adrianna Caldera UR MICRO IND NOT INDICATED Normal [facility] Comment on above: Performed By: #### U ACSIND ####[facility] Af[address] [place], [place] [address]Dr. Adrianna Caldera Urobilinogen Qn (U) 0.2 {Micheal'U}/dL Normal 0.2 - 1. 0 [facility] Comment on above: Performed By: #### U ACSIND ####[facility] [address] [place], [place] [address]WjAung Adrianna Caldera US PREG ANATOMY SINGLEon US [...] by: KAROL SIDDIQUI Date: 2022-07-21 16:41 Normal [facility] PAP ACOG PANEL 2: 21 to 29on 07-12-2022 . . Normal [facility] Comment on above: Performed By: #### 4 [id number] ####[facility] [address] [place], [place] [address]RdAung Adrianna Caldera Age Gdln ACOG Testing 21-29 Normal [facility] Comment on above: Performed By: #### 4 [id number] ####[facility] L[address] [place], [place] [address]DrAung Caldera DIAGNOSIS: Comment Normal [facility] Comment on above: Result Comment: NEGA TIVE FOR INTRAEPITHELIAL LESION OR MALIGNANCY. Performed By: #### 4 [id number] ####[facility] [address] [place], [place] [address]DrAung Caldera Methodology: Comment Normal [facility] Comment on above: Result Comment: This liquid based ThinPrep(R) pap test was screened with the use of an image guided system. Performed By: #### 4 [id number] ####[facility] [address] [place], [place] [address]DrAung Caldera Note: Comment Normal [facility] Comment on above: Result Comment: The Pap smear is a screening test designed to aid in the detection of premalignant and malignant conditions of the uterine cervix. It is not a diagnostic procedure and should not be used as the sole means of detecting cervical cancer. Both false-positive and false-negative reports do occur. . Performed By: #### 4 [id number] ####[facility] [address] [place], [place] [address]DrAung Caldera Performed by: Comment Normal [facility] Comment on above: Result Comment: [place] Yin, [place] [employer] Supervisor (ASCP) Performed By: #### 4 [id number] ####[facility] [address] [place], [place] [address]DrAung Caldera Reflex Criteria: Comment Normal [facility] Comment on above: Result Comment: The HPV DNA reflex criteria were not met with this specimen result therefore, no HPV testing was performed. . Performed By: #### 4 [id number] ####[facility] [address] [place], [place] [address]DrAung Caldera Specimen adequacy: Comment Normal [facility] Comment on above: Result Comment: Sati sfactory for evaluation. No endocervical component is identified. Performed By: #### 4 [id number] ####[facility] [address] [place], [place] [address]DrAung Caldera CHLAMYDIA/GONOCOCCUS ALEKSANDER (SW AB/URINE/PAPon 07-07-2022 Chlamydia trachomatis, ALEKSANDER Negative Normal Negative [facility] Comment on above: Performed By: #### C T/NGNA ####[facility] [address] [place] [address]Dr. Adrianna Caldera Neisseria gonorrhoeae, ALEKSANDER Negative Normal Negative [facility] Comment on above: Performed By: #### C T/NGNA ####[facility] [address] [place] [address]Dr. Adrianna Caldera VAGINITIS/VAGINOSIS DNA PROB Scott 07-07-2022 Sherley species Negative Normal Negative [facility] Comment on above: Performed By: #### U ACSIND #### [facility] [address] [place] [address] [address] Adrianna Caldera Gardnerella vaginalis Negative Normal Negative [facility] Comment on above: Performed By: #### U ACSIND #### [facility] [address] [place] [address] [address] Adrianna Caldera Trichomonas vaginalis Negative Normal Negative [facility] Comment on above: Performed By: #### U ACSIND #### [facility] [address] [place] [address] [address] Adrianna Caldera Cult,Urineon 07-02-2022 Cult,Urine Specimen Description .CLEAN CATCH URINE Culture NO SIGNIFICANT GROWTH Report Status FINAL 07/02/2022 [facility] Comment on above: Performed By: #### L TATA LOPEZ, CP #### [facility] [address] [place] [address] Insurance Operations Rep: Cholo Alicea MD ABO/RHon 06-30-2022 ABO/Rh Negative [facility] ABO/Rh(D)on 06-30-2022 ABO/Rh(D) Negative [facility] Comment on above: Performed By: #### L TATA LOPEZ, CP #### [facility] [address] [place] [address] Insurance Operations Rep: Cholo Alicea MD CBC with Auto Differentialon 06-30-2022 Absolute Eos # 0.06 [facility] Absolute Immature Granulocyte 0.07 [facility] Absolute Lymph # 2.91 [facility] Absolute Randall # 0.66 [facility] Basophils (Bld) [#/Vol] 0.04 10*3/uL [facility] Basophils/100 WBC (Bld) 0 % 0 - 2 % B ON [facility] Eosinophils/100 WBC (Bld) 1 % 1 - 4 % [facility] Hematocrit (Bld) [Volume fraction] 35.2 % Low 36.3 - 47.1 % [facility] Hemoglobin (Bld) [Mass/Vol] 11.9 g/dL 11.9 - 15.1 g/dL [facility] Immature granulocytes/100 WBC (Bld) 1 % High 0 [facility] Interpretation and review of laboratory results Abnormal [facility] Lymphocytes/100 WBC (Bld) 24 % 24 - 43 % [facility] MCH (RBC) [Entitic mass] 30.7 pg 25.2 - 33.5 pg [facility] MCHC (RBC) [Mass/Vol] 33.8 g/dL 28.4 - 34.8 g/dL [facility] MCV (RBC) [Entitic vol] 91.0 fL 82.6 - 102.9 fL [facility] Monocytes/100 WBC (Bld) 5 % 3 - 12 % B ON [facility] NRBC Automated 0.0 0.0 per 100 WBC [facility] Platelet distribution width (Bld) [Ratio] 12.2 % 11.8 - 14.4 % [facility] Platelet mean volume (Bld) [Entitic vol] 10.5 fL 8.1 - 13.5 fL [facility] Platelets (Bld) [#/Vol] 301 10*3/uL [facility] RBC (Bld) [#/Vol] 3.87 10*6/uL Low 3.95 - 5.1 1 m/uL [facility] Segmented neutrophils/100 WBC (Bld) 69 % High 36 - 65 % [facility] Segs Absolute 8.40 High [facility]ON [facility] WBC (Bld) [#/Vol] 12.1 10*3/uL High [facility] BON [facility] CBC with Diffon 06-30-2022 Abs. Basophil 0.04 k/uL Normal 0.00-0.20 [facility] Comment on above: Performed By: #### L IP, CDP, CP #### [facility] [address] [place] [address] Dr. [place], [place] [address] Insurance Operations Rep: Cholo Alicea MD Abs.Imm.Granulocyte 0.07 k/uL Normal 0.00-0.30 [facility] Comment on above: Performed By: #### L IP, CDP, CP #### [address] [place] [address] Insurance Operations Rep: Cholo Alicea MD Abs.Neutrophil (Seg) 8.40 k/uL High 1.50-8.10 [facility] Comment on above: Performed By: #### L IP, CDP, CP #### [address] [place], [place] [address] Insurance Operations Rep: Cholo Alicea MD Basophils/100 WBC (Bld) 0 % Normal 0-2 [facility] Comment on above: Performed By: #### L IP, CDP, CP #### [address] [place], [place] [address] Insurance Operations Rep: Cholo Alicea MD Eosinophils (Bld) [#/Vol] 0.06 10*3/uL Normal 0.00-0.44 [facility] Comment on above: Performed By: #### L IP, CDP, CP #### [address] [place], [place] [phone] Insurance Operations Rep: Cholo Alicea MD Eosinophils/100 WBC (Bld) 1 % Normal 1-4 [facility] Comment on above: Performed By: #### L IP, CDP, CP #### [facility] [address] [place], [place] 1000583 Insurance Operations Rep: Cholo Alicea MD Erythrocyte distribution width (RBC) [Ratio] 12.2 % Normal 11.8-14.4 [facility] Comment on above: Performed By: #### L IP, CDP, CP #### [address] [place], [place] [phone] Insurance Operations Rep: Cholo Alicea MD Hematocrit (Bld) [Volume fraction] 35.2 % Low 36.3-47.1 [facility] Comment on above: Performed By: #### L IP, CDP, CP #### [address] [place], [id number] Insurance Operations Rep: Cholo Alicea MD Hemoglobin (Bld) [Mass/Vol] 11.9 g/dL Normal 11.9-15.1 [facility] Comment on above: Performed By: #### L IP, CDP, CP #### [address] [place], [id number] Insurance Operations Rep: Cholo Alicea MD Immature granulocytes/100 WBC (Bld) 1 % High 0 [facility] Comment on above: Performed By: #### L IP, CDP, CP #### [address] [place], [id number] Insurance Operations Rep: Cholo Alicea MD Lymphocytes (Bld) [#/Vol] 2.91 10*3/uL Normal 1.10-3.70 [facility] Comment on above: Performed By: #### L IP, CDP, CP #### [address] [place], [place] [phone] Insurance Operations Rep: Cholo Alicea MD Lymphocytes/100 WBC (Bld) 24 % Normal 24-43 [facility] Comment on above: Performed By: #### L IP, CDP, CP #### [address] [place] [phone] Insurance Operations Rep: Cholo Alicea MD MCH (RBC) [Entitic mass] 30.7 pg Normal 25.2-33.5 [facility] Comment on above: Performed By: #### L IP, CDP, CP #### [address] [place] [phone] Insurance Operations Rep: Cholo Alicea MD MCHC (RBC) [Mass/Vol] 33.8 g/dL Normal 28.4-34.8 [facility] Comment on above: Performed By: #### L IP, CDP, CP #### [address] [place] [address] Insurance Operations Rep: Cholo Alicea MD MCV (RBC) [Entitic vol] 91.0 fL Normal 82.6-102.9 [facility] Comment on above: Performed By: #### L IP, CDP, CP #### [address] [place] [address] Insurance Operations Rep: Cholo Alicea MD Monocytes (Bld) [#/Vol] 0.66 10*3/uL Normal 0.10-1.20 [facility] Comment on above: Performed By: #### L IP, CDP, CP #### [address] [place] [place] [address] Insurance Operations Rep: Cholo Alicea MD Monocytes/100 WBC (Bld) 5 % Normal 3-12 [facility] Comment on above: Performed By: #### L IP, CDP, CP #### [address] [place] [phone] Insurance Operations Rep: Cholo Alicea MD Neutrophil (Seg) 69 % High 36-65 [facility] Comment on above: Performed By: #### L IP, CDP, CP #### [address] [place] [phone] Insurance Operations Rep: Cholo Alicea MD NRBC Automated 0.0 per 100 WBC Normal 0.0 [facility] Comment on above: Performed By: #### L TATA LOPEZ, CP #### [facility] [address] [place] [address] Insurance Operations Rep: Cholo Alicea MD Platelet mean volume (Bld) [Entitic vol] 10.5 fL Normal 8.1-13.5 [facility] Comment on above: Performed By: #### L TATA LOPEZ, CP #### [facility] [address] [place], [place] [phone] Insurance Operations Rep: Cholo Alicea MD Platelets (Bld) [#/Vol] 301 10*3/uL Normal 138-453 [facility] Comment on above: Performed By: #### L TATA LOPEZ, CP #### [address] [place] [address] Insurance Operations Rep: Cholo Alicea MD RBC (Bld) [#/Vol] 3.87 10*6/uL Low 3.95-5.11 [facility] Comment on above: Performed By: #### L TATA LOPEZ, CP #### [address] [place], [place] [phone] Insurance Operations Rep: Cholo Alicea MD WBC (Bld) [#/Vol] 12.1 10*3/uL High 3.5-11.3 [facility] Comment on above: Performed By: #### L TATA LOPEZ, CP #### [facility] [address] [place] [address] Dr[place], [place] [phone] Insurance Operations Rep: Cholo Alicea [facility] Albumin [Mass/Vol] 3.6 g/dL 3.5 - 5.2 g/dL [facility] Albumin/Globulin [Mass ratio] 1.1 {ratio} 1.0 - 2.5 [facility] ALP [Catalytic activity/Vol] 74 U/L 35 - 104 U/L [facility] ALT [Catalytic activity/Vol] 9 U/L 5 - 33 U/L [facility] Anion gap [Moles/Vol] 13 mmol/L 9 - 17 mmol/L [facility] AST [Catalytic activity/Vol] 18 U/L NINF - 32 U/L [facility] Bilirubin [Mass/Vol] mg/dL Low 0.3 - 1 .2 mg/dL [facility] Calcium [Mass/Vol] 9.5 mg/dL 8.6 - 10. 4 mg/dL [facility] Chloride [Moles/Vol] 101 mmol/L 98 - 10 7 mmol/L [facility] CO2 [Moles/Vol] 21 mmol/L 20 - 31 mmol/L [facility] Creatinine [Mass/Vol] 0.55 mg/dL 0.50 - 0.90 mg/dL [facility] GFR/1.73 sq M.predicted MDRD (S/P/Bld) [Vol rate/Area] - PINF [facility] Comment on above: These results are not [...] [Mass/Vol] 84 mg/dL 70 - 99 mg/dL [facility] Interpretation and review of laboratory results Abnormal [facility] Potassium [Moles/Vol] 3.8 mmol/L 3.7 - 5.3 mmol/L [facility] Protein [Mass/Vol] 6.9 g/dL 6.4 - 8.3 g/dL [facility] Sodium [Moles/Vol] 135 mmol/L 135 - 144 mmol/L [facility] Urea nitrogen [Mass/Vol] 8 mg/dL 6 - 20 mg/dL [facility] Urea nitrogen/Creatinine (Bld) [Mass ratio] 15 9 - 20 [facility] Comp Metabolic Profon 2022 Bilirubin [Mass/Vol] mg/dL Low 0.3-1.2 [facility] Comment on above: Performed By: #### L IP, CDP, CP #### [facility] [address] [place] [address] Insurance Operations Rep: Cholo Alicea MD Albumin [Mass/Vol] 3.6 g/dL Normal 3.5-5.2 [facility] Comment on above: Performed By: #### L IP, CDP, CP #### [facility] [address] [place] [address] Insurance Operations Rep: Cholo Alicea MD Albumin/Glob Ratio 1.1 Normal 1.0-2.5 [facility] Comment on above: Performed By: #### L IP, CDP, CP #### [address] [place] [address] Insurance Operations Rep: Cholo Alicea MD Alkaline Phos 74 U/L Normal 35-104 [facility] Comment on above: Performed By: #### L IP, CDP, CP #### [address] [place], [place] [phone] Insurance Operations Rep: Cholo Alicea MD ALT [Catalytic activity/Vol] 9 U/L Normal 5-33 [facility] Comment on above: Performed By: #### L IP, CDP, CP #### [facility] [address] [place] [address] [place] [address] Insurance Operations Rep: Cholo Alicea MD Anion gap [Moles/Vol] 13 mmol/L Normal 9-17 [facility] Comment on above: Performed By: #### L IP, CDP, CP #### [facility] [address] [place] [address] Insurance Operations Rep: Cholo Alicea MD AST [Catalytic activity/Vol] 18 U/L Normal <32 [facility] Comment on above: Performed By: #### L IP, CDP, CP #### [facility] [address] [place], [place] [phone] Insurance Operations Rep: Cholo Alicea MD BUN/CRE Ratio 15 Normal 9-20 [facility] Comment on above: Performed By: #### L IP, CDP, CP #### [facility] [address] [place], [place] [phone] Insurance Operations Rep: Cholo Alicea MD Calcium [Mass/Vol] 9.5 mg/dL Normal 8.6-10.4 [facility] Comment on above: Performed By: #### L IP, CDP, CP #### [facility] [address] [place], [place] [phone] Insurance Operations Rep: Cholo Alicea MD Chloride [Moles/Vol] 101 mmol/L Normal 98-107 [facility] Comment on above: Performed By: #### L IP, CDP, CP #### [facility] [address] [place] [address] Dr[place], [place] [phone] Insurance Operations Rep: Cholo Alicea MD CO2 [Moles/Vol] 21 mmol/L Normal 20-31 [facility] Comment on above: Performed By: #### L IP, CDP, CP #### [address] [place] [address] Insurance Operations Rep: Cholo Alicea MD Creatinine [Mass/Vol] 0.55 mg/dL Normal 0.50-0.90 [facility] Comment on above: Performed By: #### L IP, CDP, CP #### [facility] [address] [place] [address] Insurance Operations Rep: Cholo Alicea MD GFR/1.73 sq M.predicted among non-blacks MDRD (S/P/Bld) [Vol rate/Area] mL/min/{1.73_m2} Normal >60 [facility] Comment on above: Result Comment: These [...] By: #### L IP, CDP, CP #### [facility] [address] [place], [place] [phone] Insurance Operations Rep: Cholo Alicea MD Glucose [Mass/Vol] 84 mg/dL Normal 70-99 [facility] Comment on above: Performed By: #### L IP, CDP, CP #### [facility] [address] [place], [place] [phone] Insurance Operations Rep: Cholo Alicea MD Potassium [Moles/Vol] 3.8 mmol/L Normal 3.7-5.3 [facility] Comment on above: Performed By: #### L IP, CDP, CP #### [facility] [address] [place] [address] Dr[place], [place] [phone] Insurance Operations Rep: Cholo Alicea MD Protein [Mass/Vol] 6.9 g/dL Normal 6.4-8.3 [facility] Comment on above: Performed By: #### L IP, CDP, CP #### [address] [place], [place] [phone] Insurance Operations Rep: Cholo Alicea MD Sodium [Moles/Vol] 135 mmol/L Normal 135-144 [facility] Comment on above: Performed By: #### L IP, CDP, CP #### [facility] [address] [place] [address] Dr[place], [place] [phone] Insurance Operations Rep: Cholo Alicea MD Urea nitrogen [Mass/Vol] 8 mg/dL Normal 6-20 [facility] Comment on above: Performed By: #### L IP, CDP, CP #### [facility] [address] [place] [address] [place] [address] Insurance Operations Rep: Cholo Alicea MD Lipaseon 06-30-2022 Lipase [Catalytic activity/Vol] 30 U/L Normal 13-60 [facility] Comment on above: Performed By: #### L TATA LOPEZ, CP #### [facility] [address] [place] [address] [place] [address] Insurance Operations Rep: Cholo Alicea MD Lipase [Catalytic activity/Vol] 30 U/L 13 - 60 U/L [facility] Microscopic Urinalysison Bacteria, UA 2+ Abnormal None [facility] Epithelial Cells UA 0 TO 2 [facility] Interpretation and review of laboratory results Abnormal [facility] Mucus, UA 3+ Abnormal None [facility] RBC clumps Auto (Urine sed) [#/Area] 0 TO 2 [facility] WBC, UA 0 TO 2 [facility] PTon 06-30-2022 INR Coag (PPP) [Relative time] 1.0 {INR} Normal [facility] Comment on above: Result Comment: Therapeutic Range: Moderate Anticoagulant Intensity: INR = 2.0-3.0 High Anticoagulant Intensity: INR = 2.5-3.5 Performed By: #### L TATA LOPEZ, CP #### [facility] [address] [place] [address] [place] [address] Insurance Operations Rep: Cholo Alicea MD PT Coag (PPP) [Time] 13.3 s Normal 11.5-14.2 [facility] Comment on above: Performed By: #### L TATA LOPEZ, CP #### [facility] [address] [place] [address] [place] [address] Insurance Operations Rep: Cholo Alicea MD Protime-INRon 06-30-2022 INR Coag (PPP) [Relative time] 1.0 {INR} [facility] Comment on above: Therapeutic Range: Moderate Anticoagulant Intensity: INR = 2.0-3.0 High Anticoagulant Intensity: INR = 2.5-3.5 PT Coag (PPP) [Time] 13.3 [facility] UA w/Reflex Cultureon 2022 Bilirubin, SemiQt,Ur Negative Normal NEG [facility] Comment on above: Performed By: #### U MICAO, UAX #### [facility] [address] [place], [place] [phone] Insurance Operations Rep: Cholo Alicea MD Blood, Urine Negative Normal NEG [facility] Comment on above: Performed By: #### U MICAO, UAX #### [facility] [address] [place], [place] [phone] Insurance Operations Rep: Cholo Alicea MD Clarity (U) Clear Normal CLEAR [facility] Comment on above: Performed By: #### U MICAO, UAX #### [facility] [address] [place], [place] [phone] Insurance Operations Rep: Cholo Alicea MD Color (U) Yellow Normal YEL [facility] Comment on above: Performed By: #### U MICAO, UAX #### [facility] [address] [place], [place] [phone] Insurance Operations Rep: Cholo Alicea MD Glucose Ql (U) Negative Normal NEG [facility] Comment on above: Performed By: #### U MICAO, UAX #### [facility] [address] [place], [place] [phone] Insurance Operations Rep: Cholo Alicea MD Ketones Ql (U) Negative Normal NEG [facility] Comment on above: Performed By: #### U MICAO, UAX #### [facility] [address] [place], [place] [phone] Insurance Operations Rep: Cholo Alicea MD Leukocyte esterase Test strip Ql (U) Negative Normal NEG [facility] Comment on above: Performed By: #### U MICAO, UAX #### [facility] [address] [place], [place] [phone] Insurance Operations Rep: Cholo Alicea MD Nitrite,Ur Negative Normal NEG [facility] Comment on above: Performed By: #### U MICAO, UAX #### [facility] [address] [place], [place] [phone] Insurance Operations Rep: Cholo Alicea MD PH,Ur 6.0 Normal 5.0-9.0 [facility] Comment on above: Performed By: #### U MICAO, UAX #### [facility] [address] [place] [address] Insurance Operations Rep: Cholo Alicea MD Protein Ql (U) Negative Normal NEG [facility] Comment on above: Performed By: #### U MICAO, UAX #### [address] [place], [place] [address] Insurance Operations Rep: Cholo Alicea MD Spec. [place],Ur 1.025 High 1.010-1.020 [facility] Comment on above: Performed By: #### U MICAO, UAX #### [address] [place], [place] [phone] Insurance Operations Rep: Chool Alicea MD Urobilinogen,Ur Normal Normal NORM [facility] Comment on above: Performed By: #### U MICAO, UAX #### [facility] [address] [place] [address] Dr. [place], [phone] Insurance Operations Rep: Cholo Alicea MD Urinalysis with Reflex to Cu ltureon 06-30-2022 Bilirubin Urine Negative NEGATIVE [facility] Color, UA Yellow Yellow [facility] Glucose Auto test strip (U) [Mass/Vol] Negative NEGATIVE [facility] Interpretation and review of laboratory results Abnormal [facility] Ketones (U) [Mass/Vol] Negative NEGATIVE [facility] Leukocyte esterase Auto test strip Ql (U) Negative NEGATIVE [facility] Nitrite Auto test strip Ql (U) Negative NEGATIVE [facility] Protein (U) [Mass/Vol] 6.0 mg/dL 5.0 - 9.0 [facility] Protein (U) [Mass/Vol] Negative NEGATIVE [facility] Specific [place], UA 1.025 High 1.010 - 1.020 [facility] Turbidity UA Clear Clear [facility] Urine Hgb Negative NEGATIVE [facility] Urobilinogen, Urine Normal Normal [facility] Urinalysis,Microon 3 Bacteria 2+ Abnormal [facility] Comment on above: Performed By: #### U MICAO, UAX #### [facility] [address] [place], [place] [phone] Insurance Operations Rep: Cholo Alicea MD Epithelial cells LM Ql (Urine sed) 0 TO 2 Normal 0-25 [facility] Comment on above: Performed By: #### U MICAO, UAX #### [facility] [address] [place], [place] [phone] Insurance Operations Rep: Cholo Alicea MD Mucus Strands 3+ Abnormal [facility] Comment on above: Performed By: #### U MICAO, UAX #### [facility] [address] [place], [place] [phone] Insurance Operations Rep: Cholo Alicea MD Urine RBC's 0 TO 2 Normal 0-2 [facility] Comment on above: Performed By: #### U MICAO, UAX #### [facility] [address] [place], [place] [phone] Insurance Operations Rep: Cholo Alicea MD Urine WBC's 0 TO 2 Normal 0-5 [facility] Comment on above: Performed By: #### U MICAO, UAX #### [facility] [address] [place] [address] Insurance Operations Rep: Cholo Alicea MD No Panel Informationon 06-17 Body mass index (BMI) [Percentile] Per age and sex 0.1 {percentile} Invalid Interpretation Code [facility] [id number] Per age and sex 0.1 {percentile} Invalid Interpretation Code [employer] HEP B SURFACE ANTIGEN SCREEN on 06-08-2022 HBsAg Screen Negative Normal Negative [facility] Comment on above: Performed By: #### U ACSIND #### [facility] [address] [place] [address] Dr. Adrianna Caldera HEPATITIS C VIRUS AB W/ REFL EX QUANTon 06-08-2022 HCV AB <0.1 Normal 0.0-0.9 [facility] Comment on above: Performed By: #### U ACSIND #### [facility] [address] [place] [address] Dr. Adrianna Caldera Interpretation: Comment Normal [facility] Comment on above: Result Comment: Nega tive Not infected with HCV, unless recent infection is suspected or other evidence exists to indicate HCV infection. Performed By: #### U ACSIND #### [facility] [address] [place] [address] Dr. Adrianna Caldera HIV 1 AND 2 WITH REFLEXon HIV Screen 4th Generation wRfx Non-Reactive Normal Non Reactive [facility] Comment on above: Result Comment: HIV Negative HIV-1/HIV-2 antibodies and HIV-1 p24 antigen were NOT detected. There is no laboratory evidence of HIV infection. Performed By: #### U ACSIND #### [facility] [address] [place] [address] Dr. Adrianna Caldera RPR QUANTon 06-08-2022 Rapid Plasma Reagin, Quant Non-Reactive Normal NonRea<1:1 [facility] Comment on above: Result [...] utilized, such as Treponema pallidum (Syphilis) Screening [place] (570653) or Rapid Plasma Reagin (RPR) Test With Reflex to Quantitative RPR and Confirmatory Treponema pallidum Antibodies (268524). Performed By: #### U ACSIND #### [facility] [address] [address] [address] Adrianna Caldera RUBELLA AB IGGon 06-08-2022 Rubella Antibodies, IgG 4.69 index Normal Immu ne >0.99 [facility] Comment on above: Result Comment: Non- immune <0.90 Equivocal 0.90 - 0.99 Immune >0.99 Performed By: #### R UBIGG ####[facility] [id number] [address]Dr. Adrianna Caldera CBC AUTO DIFFon 06-05-2022 BASO # 0.0 103/ul Normal 0.0-0.1 [facility] Comment on above: Performed By: #### C BC #### [facility] [address] [place] [address] Dr. Adrianna Caldera Basophils/100 WBC (Bld) 0.3 % Normal 0.2-2.0 [facility] Comment on above: Performed By: #### C BC #### [facility] [address] [place] [address] Dr. Adrianna Caldera EO # 0.1 103/ul Normal 0.0-0.7 [facility] Comment on above: Performed By: #### C BC #### [facility] [address] [place] [address] Dr. Adrianna Caldera Eosinophils/100 WBC (Bld) 0.6 % Critically low 0.9-7.0 [facility] Comment on above: Performed By: #### C BC #### [facility] [address] [place] [address] Dr. Adrianna Caldera Erythrocyte distribution width (RBC) [Ratio] 11.7 % Normal 11.0-15.0 [facility] Comment on above: Performed By: #### C BC #### [facility] [address] [place] [address] Dr. Adrianna Caldera Hematocrit (Bld) [Volume fraction] 33.8 % Critically low 36.0-48.0 [facility] Comment on above: Performed By: #### C BC #### [facility] [address] [address] [address] Adrianna Caldera Hemoglobin (Bld) [Mass/Vol] 12.6 g/dL Normal 12.0-16.0 [facility] Comment on above: Performed By: #### C BC #### [facility] [address] [address] [address] Adrianna Caldera IG # 0.05 10e3/ul Critically high 0.00-0.03 [facility] Comment on above: Performed By: #### C BC #### [facility] [address] [place] [address] Dr. Adrianna Caldera IG % 0.4 % Normal 0.0-0.5 [facility] Comment on above: Performed By: #### C BC #### [facility] [address] [place] [address] Dr. Adrianna Caldera LYMPH # 2.4 103/ul Normal 1.2-3.8 [facility] Comment on above: Performed By: #### C BC #### [facility] [address] [place] [address] Dr. Adrianna Caldera Lymphocytes/100 WBC (Bld) 21.1 % Normal 20.5-60.0 [facility] Comment on above: Performed By: #### C BC #### [facility] [address] [place] [address] Dr. Adrianna Caldera MANUAL DIFF REQ NO Normal [facility] Comment on above: Performed By: #### C BC #### [facility] [address] [place] [address] Dr. Adrianna Caldera MCH (RBC) [Entitic mass] 30.3 pg Normal 26.7-34.0 [facility] Comment on above: Performed By: #### C BC #### [facility] [address] [place] [address] Dr. Adrianna Caldera MCHC (RBC) [Mass/Vol] 37.3 g/dL Critically high 29.9-35.2 [facility] Comment on above: Performed By: #### C BC #### [facility] [address] [address] [address] Adrianna Caldera MCV (RBC) [Entitic vol] 81.3 fL Normal 81.0-99.0 [facility] Comment on above: Performed By: #### C BC #### [facility] [address] [address] [address] Adrianna Caldera MONO # 0.6 103/ul Normal 0.3-0.8 [facility] Comment on above: Performed By: #### C BC #### [facility] [address] [place] [address] Dr. Adrianna Caldera Monocytes/100 WBC (Bld) 5.4 % Normal 1.7-12.0 [facility] Comment on above: Performed By: #### C BC #### [facility] [address] [place] [address] Dr. Adrianna Caldera NEUT # 8.3 103/ul Critically high 1.4-6.5 [facility] Comment on above: Performed By: #### C BC #### [facility] [address] [place] [address] Dr. Adrianna Caldera Neutrophils/100 WBC (Bld) 72.2 % Normal 43.0-75.0 [facility] Comment on above: Performed By: #### C BC #### [facility] [address] [place] [address] Dr. Adrianna Caldera Platelet mean volume (Bld) [Entitic vol] 10.6 fL Normal 9.5-13.5 [facility] Comment on above: Performed By: #### C BC #### [facility] [address] [place] [address] Dr. Adrianna Caldera PLT 253 103/ul Normal 150-450 [facility] Comment on above: Performed By: #### C BC #### [facility] [address] [place] [address] Dr. Adrianna Caldera RBC 4.16 106/ul Critically low 4.20-5.40 [facility] Comment on above: Performed By: #### C BC #### [facility] [address] [place] [address] Dr. Adrianna Caldera WBC 11.6 103/ul Critically high 4.0-11.0 [facility] Comment on above: Performed By: #### C BC #### [facility] [address] [address] [address] Adrianna Caldera CULTURE URINEon 06-05-2022 CULTURE URINE Culture Observations: LIGHT GROWTH OF MIXED GENITAL JIGAR. NO POTENTIAL PATHOGENS SEEN. Normal [facility] Comment on above: Performed By: #### U RCX ####[facility] [id number] [address]Dr. Adrianna Caldera GLYCOHEMOGLOBIN A1Con 2022 ADA RECOMMENDATION SEE BELOW Normal [facility] Comment on above: Result Comment: ADA RECOMMENDED LIMIT 4.0 - 6.0 ADA THERAPEUTIC TARGET < 7.0 ACTION SUGGESTED > 7.0 Performed By: #### P REGQNT #### [facility] [address] [address] [address] Adrianna Caldera Glucose [Mass/Vol] 105 mg/dL Normal [facility] Comment on above: Performed By: #### P REGQNT #### [facility] [address] [address] [address] Adrianna Caldera HbA1c (Bld) [Mass fraction] 5.3 % Normal 4.5-6.2 [facility] Comment on above: Performed By: #### P REGQNT #### [facility] [address] [address] [address] Adrianna Caldera TYPE AND SCREENon 06-05-2022 TYPE AND SCREEN Negative Normal [facility] Comment on above: Performed By: #### T NS ####[facility] [id number] [address]Dr. Adrianna Caldera US PREG <14 WKSon 05-27-2022 [...] by: GOVIND JOHNSTON Date: 2022-05-26 22:31 Normal [facility] CBC AUTO DIFFon 05-26-2022 BASO # 0.1 103/ul Normal 0.0-0.1 [facility] Comment on above: Performed By: #### U ACSIND #### [facility] [address] [address] [address] Adrianna Caldear Basophils/100 WBC (Bld) 0.5 % Normal 0.2-2.0 [facility] Comment on above: Performed By: #### U ACSIND #### [facility] [address] [address] [address] Adrianna Caldera EO # 0.1 103/ul Normal 0.0-0.7 [facility] Comment on above: Performed By: #### U ACSIND #### [facility] [address] [address] [address] Adrianna Caldera Eosinophils/100 WBC (Bld) 0.5 % Critically low 0.9-7.0 [facility] Comment on above: Performed By: #### U ACSIND #### [facility] [address] [address] [address] Adrianna Caldera Erythrocyte distribution width (RBC) [Ratio] 11.9 % Normal 11.0-15.0 [facility] Comment on above: Performed By: #### U ACSIND #### [facility] [address] [address] [address] Adrianna Caldera Hematocrit (Bld) [Volume fraction] 37.5 % Normal 36.0-48.0 [facility] Comment on above: Performed By: #### U ACSIND #### [facility] [address] [place] [address] Dr. Adrianna Caldera Hemoglobin (Bld) [Mass/Vol] 12.8 g/dL Normal 12.0-16.0 [facility] Comment on above: Performed By: #### U ACSIND #### [facility] [address] [place] [address] Dr. Adrianna Caldera IG # 0.04 10e3/ul Critically high 0.00-0.03 [facility] Comment on above: Performed By: #### U ACSIND #### [facility] [address] [place] [address] Dr. Adrianna Caldera IG % 0.4 % Normal 0.0-0.5 [facility] Comment on above: Performed By: #### U ACSIND #### [facility] [address] [place] [address] Dr. Adrianna Caldera LYMPH # 3.0 103/ul Normal 1.2-3.8 [facility] Comment on above: Performed By: #### U ACSIND #### [facility] [address] [place] [address] Dr. Adrianna Caldera Lymphocytes/100 WBC (Bld) 27.0 % Normal 20.5-60.0 [facility] Comment on above: Performed By: #### U ACSIND #### [facility] [address] [place] [address] Dr. Adrianna Caldera MANUAL DIFF REQ NO Normal [facility] Comment on above: Performed By: #### U ACSIND #### [facility] [address] [place] [address] Dr. Adrianna Caldera MCH (RBC) [Entitic mass] 29.8 pg Normal 26.7-34.0 [facility] Comment on above: Performed By: #### U ACSIND #### [facility] [address] [address] [address] Adrianna Caldera MCHC (RBC) [Mass/Vol] 34.1 g/dL Normal 29.9-35.2 [facility] Comment on above: Performed By: #### U ACSIND #### [facility] [address] [address] [address] Adrianna Caldera MCV (RBC) [Entitic vol] 87.4 fL Normal 81.0-99.0 [facility] Comment on above: Performed By: #### U ACSIND #### [facility] [address] [place] [address] Dr. Adrianna Caldera MONO # 0.7 103/ul Normal 0.3-0.8 [facility] Comment on above: Performed By: #### U ACSIND #### [facility] [address] [place] [address] Dr. Adrianna Caldera Monocytes/100 WBC (Bld) 6.3 % Normal 1.7-12.0 [facility] Comment on above: Performed By: #### U ACSIND #### [facility] [address] [place] [address] Dr. Adrianna Caldera NEUT # 7.2 103/ul Critically high 1.4-6.5 [facility] Comment on above: Performed By: #### U ACSIND #### [facility] [address] [place] [address] Dr. Adrianna Caldera Neutrophils/100 WBC (Bld) 65.3 % Normal 43.0-75.0 [facility] Comment on above: Performed By: #### U ACSIND #### [facility] [address] [address] [address] Adrianna Caldera Platelet mean volume (Bld) [Entitic vol] 10.3 fL Normal 9.5-13.5 [facility] Comment on above: Performed By: #### U ACSIND #### [facility] [address] [place], [place] [address] Dr. Adrianna Caldera PLT 316 103/ul Normal 150-450 [facility] Comment on above: Performed By: #### U ACSIND #### [facility] [address] [address] [address] Adrianna Caldera RBC 4.29 106/ul Normal 4.20-5.40 [facility] Comment on above: Performed By: #### U ACSIND #### [facility] [address] [id number] Adrianna Caldera WBC 11.0 103/ul Normal 4.0-11.0 [facility] Comment on above: Performed By: #### U ACSIND #### [facility] [id number] Adrianna Caldera [address] ABD/PELV W CONon [...] ISIDRO AVILA Date: 2022-05-26 19:39 Normal [facility]30 SARS-CoV-2 (COVID-19) RNA ALEKSANDER+probe Ql (Unsp spec) Not detected Normal NOT DETECTED [facility] Comment on above: Result [...] for this test is supported by the [employer] of Health and Human Service's declaration that [...] used). Performed By: #### U ACSIND #### [facility] [address] [place] [address] Dr. Adrianna Caldera ER URINE PROFILEon 2 Bilirubin Ql (U) Negative Normal NEGATIVE [facility] Comment on above: Performed By: #### P REGQNT #### [facility] [address] [place] [address] Dr. Adrianna Caldera Clarity (U) CLEAR Normal CLEAR [facility] Comment on above: Performed By: #### P REGQNT #### [facility] [address] [place] [address] Dr. Adrianna Caldera Color (U) YELLOW Normal YELLOW [facility] Comment on above: Performed By: #### P REGQNT #### [facility] [address] [place] [address] Dr. Adrianna Caldera ERUAHD A micrscopic examination will be performed if indicated. Normal [facility] Comment on above: Performed By: #### P REGQNT #### [facility] [address] [place] [address] Dr. Adrianna Caldera Glucose Ql (U) Negative Normal NEGATIVE [facility] Comment on above: Performed By: #### P REGQNT #### [facility] [address] [place] [address] Dr. Adrianna Caldera Hemoglobin Ql (U) Negative Normal NEGATIVE [facility] Comment on above: Performed By: #### P REGQNT #### [facility] [address] [place] [address] Dr. Adrianna Caldera Ketones Ql (U) 15 mg/dl Abnormal NEGATIVE [facility] Comment on above: Performed By: #### P REGQNT #### [facility] [address] [place] [address] Dr. Adrianna Caldera LEUKOCYTES Negative Normal NEGATIVE [facility] Comment on above: Performed By: #### P REGQNT #### [facility] [address] [place] [address] Dr. Adrianna Caldera Nitrite Ql (U) Negative Normal NEGATIVE [facility] Comment on above: Performed By: #### P REGQNT #### [facility] [address] [place] [address] Dr. Adrianna Caldera pH (U) 7.5 [pH] Normal 5-9 [facility] Comment on above: Performed By: #### P REGQNT #### [facility] [address] [place] [address] Dr. Adrianna Caldera SPEC GRAVITY 1.020 Normal 1.005-<=1.0 25 [facility] Comment on above: Performed By: #### P REGQNT #### [facility] [address] [place] [address] Dr. Adrianna Caldera UA PROTEIN Negative Normal NEGATIVE/ TRACE [facility] Comment on above: Performed By: #### P REGQNT #### [facility] [address] [place] [address] Dr. Adrianna Caldera UR MICRO IND NOT INDICATED Normal [facility] Comment on above: Performed By: #### P REGQNT #### [facility] [address] [place] [address] Dr. Adrianna Caldera Urobilinogen Qn (U) 0.2 {Micheal'U}/dL Normal 0.2 - 1. 0 [facility] Comment on above: Performed By: #### P REGQNT #### [facility] [address] [place] [address] Dr. Adrianna Caldera LIPASEon 05-26-2022 Lipase [Catalytic activity/Vol] 116.0 U/L Normal 73.0-393.0 [facility] Comment on above: Performed By: #### L IPA, CMP #### [facility] [address] [place] [address] Dr. Adrianna Caldera PROF 14(COMP METB)on 022 Albumin [Mass/Vol] 3.6 g/dL Normal 3.4-5.0 [facility] Comment on above: Performed By: #### L IPA, CMP #### [facility] [address] [place] [address] Dr. Adrianna Caldera Albumin/Globulin [Mass ratio] 0.9 {ratio} Normal [facility] Comment on above: Performed By: #### L IPA, CMP #### [facility] [address] [place] [address] Dr. Adrianna Caldera ALP [Catalytic activity/Vol] 57 U/L Normal 46-116 [facility] Comment on above: Performed By: #### L IPA, CMP #### [facility] [address] [place] [address] Dr. Adrianna Caldera ALT [Catalytic activity/Vol] 13 U/L Critically low 14-59 [facility] Comment on above: Performed By: #### L IPA, CMP #### [facility] [address] [place] [address] Dr. Adrianna Caldera Anion gap [Moles/Vol] 10.6 mmol/L Normal [facility] Comment on above: Performed By: #### L IPA, CMP #### [facility] [address] [place] [address] Dr. Adrianna Caldera AST [Catalytic activity/Vol] 12 U/L Critically low 15-37 [facility] Comment on above: Performed By: #### L IPA, CMP #### [facility] [address] [address] [address] Adrianna Caldera Bilirubin [Mass/Vol] 0.2 mg/dL Normal 0.2-1.0 [facility] Comment on above: Performed By: #### L IPA, CMP #### [facility] [address] [address] [address] Adrianna Caldera Calcium [Mass/Vol] 8.9 mg/dL Normal 8.5-10.1 [facility] Comment on above: Performed By: #### L IPA, CMP #### [facility] [address] [address] [address] Adrianna Caldera Chloride [Moles/Vol] 102 mmol/L Normal 98-107 [facility] Comment on above: Performed By: #### L IPA, CMP #### [facility] [address] [place] [address] Dr. Adrianna Caldera CO2 [Moles/Vol] 26.0 mmol/L Normal 21.0-32.0 [facility] Comment on above: Performed By: #### L IPA, CMP #### [facility] [address] [place] [address] Dr. Adrianna Caldera Creatinine [Mass/Vol] 0.61 mg/dL Normal 0.55-1.02 [facility] Comment on above: Performed By: #### L IPA, CMP #### [facility] [address] [place] [address] Dr. Adrianna Caldera EGFR-AF DJIBOUTIAN >60 Normal >=60 [facility] Comment on above: Performed By: #### L IPA, CMP #### [facility] [address] [place] [address] Dr. Adrianna Caldera EGFR-NON AF DJIBOUTIAN >60 Normal >=60 [facility] Comment on above: Performed By: #### L IPA, CMP #### [facility] [address] [place] [address] Dr. Adrianna Caldera Globulin (S) [Mass/Vol] 3.8 g/dL Normal [facility] Comment on above: Performed By: #### L IPA, CMP #### [facility] [address] [address] [address] Adrianna Caldera Glucose [Mass/Vol] 82 mg/dL Normal 74-106 [facility] Comment on above: Performed By: #### L IPA, CMP #### [facility] [address] [place] [address] Dr. Adrianna Caldera Potassium [Moles/Vol] 3.6 mmol/L Normal 3.5-5.1 [facility] Comment on above: Performed By: #### L IPA, CMP #### [facility] [address] [place] [address] Dr. Adrianna Caldera Protein [Mass/Vol] 7.4 g/dL Normal 6.4-8.2 [facility] Comment on above: Performed By: #### L IPA, CMP #### [facility] [address] [place] [address] Dr. Adrianna Caldera Sodium [Moles/Vol] 135 mmol/L Critically low 136-145 [facility] Comment on above: Performed By: #### L IPA, CMP #### [facility] [address] [place] [address] Dr. Adrianna Caldera Urea nitrogen [Mass/Vol] 9.0 mg/dL Normal 7.0-18.0 [facility] Comment on above: Performed By: #### L IPA, CMP #### [facility] [address] [place] [address] Dr. Adrianna Caldera Urea nitrogen/Creatinine [Mass ratio] 14.8 mg/mg Normal [facility] Comment on above: Performed By: #### L IPA, CMP #### [facility] [address] [place] [address] Dr. Adrianna Caldera No Panel Informationon 05-17 Body mass index (BMI) [Percentile] Per age and sex 0.1 {percentile} Invalid Interpretation Code [employer] [id number] Per age and sex 0.1 {percentile} Invalid Interpretation Code [employer] US PREG TVon 05-01-2022 US PREG TV [...] by: KAROL SIDDIQUI Date: 2022-04-30 22:06 Normal [facility] US PREG TVon 04-08-2022 US PREG [...] KAROL SIDDIQUI Date: 2022-04-08 17:08 Normal [facility] US PELVIS TRANSVAGon 03-23-2 [...] CINDY NOGUEIRA Date: 2022-03-22 22:47 Normal [facility] CBC AUTO DIFFon 03-22-2022 BASO # 0.1 103/ul Normal 0.0-0.1 [facility] Comment on above: Performed By: #### U ACSIND #### [facility] [address] [address] [address] Adrianna Caldera Basophils/100 WBC (Bld) 0.5 % Normal 0.2-2.0 [facility] Comment on above: Performed By: #### U ACSIND #### [facility] [address] [place] [address] Dr. Adrianna Caldera EO # 0.1 103/ul Normal 0.0-0.7 [facility] Comment on above: Performed By: #### U ACSIND #### [facility] [address] [address] [address] Adrianna Caldera Eosinophils/100 WBC (Bld) 0.6 % Critically low 0.9-7.0 [facility] Comment on above: Performed By: #### U ACSIND #### [facility] [address] [place] [address] Dr. Adrianna Caldera Erythrocyte distribution width (RBC) [Ratio] 12.6 % Normal 11.0-15.0 [facility] Comment on above: Performed By: #### U ACSIND #### [facility] [address] [place] [address] Dr. Adrianna Caldera Hematocrit (Bld) [Volume fraction] 40.0 % Normal 36.0-48.0 [facility] Comment on above: Performed By: #### U ACSIND #### [facility] [address] [place] [address] Dr. Adrianna Caldera Hemoglobin (Bld) [Mass/Vol] 13.6 g/dL Normal 12.0-16.0 [facility] Comment on above: Performed By: #### U ACSIND #### [facility] [address] [address] [address] Adrianna Caldera IG # 0.03 10e3/ul Normal 0.00-0.03 [facility] Comment on above: Performed By: #### U ACSIND #### [facility] [address] [address] [address] Adrianna Caldera IG % 0.3 % Normal 0.0-0.5 [facility] Comment on above: Performed By: #### U ACSIND #### [facility] [address] [address] [address] Adrianna Caldera LYMPH # 4.4 103/ul Critically high 1.2-3.8 [facility] Comment on above: Performed By: #### U ACSIND #### [facility] [address] [place] [address] Dr. Adrianna Caldera Lymphocytes/100 WBC (Bld) 38.4 % Normal 20.5-60.0 [facility] Comment on above: Performed By: #### U ACSIND #### [facility] [address] [address] [address] Adrianna Caldera MANUAL DIFF REQ NO Normal [facility] Comment on above: Performed By: #### U ACSIND #### [facility] [address] [address] [address] Adrianna Caldera MCH (RBC) [Entitic mass] 30.2 pg Normal 26.7-34.0 [facility] Comment on above: Performed By: #### U ACSIND #### [facility] [address] [address] [address] Adrianna Caldera MCHC (RBC) [Mass/Vol] 34.0 g/dL Normal 29.9-35.2 [facility] Comment on above: Performed By: #### U ACSIND #### [facility] [address] [address] [address] Adrianna Caldera MCV (RBC) [Entitic vol] 88.9 fL Normal 81.0-99.0 [facility] Comment on above: Performed By: #### U ACSIND #### [facility] [address] [address] [address] Adrianna Caldera MONO # 0.7 103/ul Normal 0.3-0.8 [facility] Comment on above: Performed By: #### U ACSIND #### [facility] [address] [place] [address] Dr. Adrianna Caldera Monocytes/100 WBC (Bld) 6.2 % Normal 1.7-12.0 [facility] Comment on above: Performed By: #### U ACSIND #### [facility] [address] [address] [address] Adrianna Caldera NEUT # 6.1 103/ul Normal 1.4-6.5 [facility] Comment on above: Performed By: #### U ACSIND #### [facility] [address] [place] [address] Dr. Adrianna Caldera Neutrophils/100 WBC (Bld) 54.0 % Normal 43.0-75.0 [facility] Comment on above: Performed By: #### U ACSIND #### [facility] [address] [place] [address] Dr. Adrianna Caldera Platelet mean volume (Bld) [Entitic vol] 10.9 fL Normal 9.5-13.5 [facility] Comment on above: Performed By: #### U ACSIND #### [facility] [address] [place] [address] Dr. Adrianna Caldera PLT 277 103/ul Normal 150-450 [facility] Comment on above: Performed By: #### U ACSIND #### [facility] [address] [place] [address] Dr. Adrianna Caldera RBC 4.50 106/ul Normal 4.20-5.40 [facility] Comment on above: Performed By: #### U ACSIND #### [facility] [address] [place] [address] Dr. Adrianna Caldera WBC 11.3 103/ul Critically high 4.0-11.0 [facility] Comment on above: Performed By: #### U ACSIND #### [facility] [address] [place] [address] Dr. Adrianna RHODES URINE PROFILEon 2 Bilirubin Ql (U) Negative Normal NEGATIVE [facility] Comment on above: Performed By: #### P REGU, ERUR ####[facility] [address] [place], [place] [address]Dr. Adrianna Caldera Clarity (U) CLEAR Normal CLEAR [facility] Comment on above: Performed By: #### P REGU, ERUR ####[facility] [address] [place], [place] [address]Dr. Adrianna Caldera Color (U) LT. YELLOW Normal YELLOW [facility] Comment on above: Performed By: #### P REGU, ERUR ####[facility] [address] [place], [place] [address]Dr. Adrianna LINARES A micrscopic examination will be performed if indicated. Normal [facility] Comment on above: Performed By: #### P REGU, ERUR ####[facility] [address] [place], [place] [address]Dr. Adrianna Caldera Glucose Ql (U) Negative Normal NEGATIVE [facility] Comment on above: Performed By: #### P REGU, ERUR ####[facility] [address] [place], [place] [address]Dr. Adrianna Caldera Hemoglobin Ql (U) Negative Normal NEGATIVE [facility] Comment on above: Performed By: #### P REGU, ERUR ####[facility] [address] [place], [place] [address]Dr. Adrianna Caldera Ketones Ql (U) Negative Normal NEGATIVE [facility] Comment on above: Performed By: #### P REGU, ERUR ####[facility] [address] [place], [place] [address]Dr. Adrianna Caldera LEUKOCYTES Negative Normal NEGATIVE [facility] Comment on above: Performed By: #### P REGU, ERUR ####[facility] [address] [place], [place] [address]Dr. Adrianna Caldera Nitrite Ql (U) Negative Normal NEGATIVE [facility] Comment on above: Performed By: #### P REGU, ERUR ####[facility] [address] [id number]. Adrianna Caldera pH (U) 6.0 [pH] Normal 5-9 [facility] Comment on above: Performed By: #### P BASSEMU, ERUR ####[facility] [address] [id number]. Adrianna Caldera SPEC GRAVITY <=1.005 Abnormal 1.005-<=1.0 25 [facility] Comment on above: Performed By: #### P BASSEMU, ERUR ####[facility] [address] [address]Dr. Adrianna Caldera UA PROTEIN Negative Normal NEGATIVE/ TRACE [facility] Comment on above: Performed By: #### P BASSEMU, ERUR ####[facility] [address] [address]Dr. Adrianna Caldera UR MICRO IND NOT INDICATED Normal [facility] Comment on above: Performed By: #### P BASSEMU, ERUR ####[facility] [address] [address]Dr. Adrianna Caldera Urobilinogen Qn (U) 0.2 {Micheal'U}/dL Normal 0.2 - 1. 0 [facility] Comment on above: Performed By: #### P BASSEMU, ERUR ####[facility] [address] [address]Dr. Adrianna Caldera PREG QUANT HCGon 03-22-2022 HCG QUANT 2 mIU/mL Normal [facility] Comment on above: Performed By: #### P REGQNT #### [facility] [address] [address] [address] Adrianna Caldera HCG RANGE SEE BELOW Normal [facility] Comment on above: Result Comment: 5-50 0.2-1 WEEK 50-500 1-2 WEEKS 100-5,000 2-3 WEEKS 500-10,000 3-4 WEEKS 1,000-50,000 4-5 WEEKS 10,000-100,000 5-6 WEEKS 15,000-200,000 6-8 WEEKS 10,000-100,000 2-3 MONTHS Performed By: #### P REGQNT #### [facility] [address] [address] [address] Adrianna Caldera URon 03-22-2022 , QUAL Negative Normal NEGATIVE [facility] Comment on above: Performed By: #### P REGU, ERUR ####[facility] [address] [place], [place] [address]UjDr. Adrianna Caldera PROF CHEM 8 (BAS METB)on Anion gap [Moles/Vol] 10.9 mmol/L Normal [facility] Comment on above: Performed By: #### U ACSIND #### [facility] [address] [address] [address] Adrianna Caldera Calcium [Mass/Vol] 9.1 mg/dL Normal 8.5-10.1 [facility] Comment on above: Performed By: #### U ACSIND #### [facility] [address] [address] [address] Adrianna Caldera Chloride [Moles/Vol] 105 mmol/L Normal 98-107 [facility] Comment on above: Performed By: #### U ACSIND #### [facility] [address] [address] [address] Adrianna Caldera CO2 [Moles/Vol] 26.0 mmol/L Normal 21.0-32.0 [facility] Comment on above: Performed By: #### U ACSIND #### [facility] [address] [address] [address] Adrianna Caldera Creatinine [Mass/Vol] 0.98 mg/dL Normal 0.55-1.02 [facility] Comment on above: Performed By: #### U ACSIND #### [facility] [address] [address] [address] Adrianna Caldera EGFR-AF DJIBOUTIAN >60 Normal >=60 [facility] Comment on above: Performed By: #### U ACSIND #### [facility] [address] [address] [address] Adrianna Caldera EGFR-NON AF DJIBOUTIAN >60 Normal >=60 [facility] Comment on above: Performed By: #### U ACSIND #### [facility] [address] [address] [address] Adrianna Caldera Glucose [Mass/Vol] 87 mg/dL Normal 74-106 [facility] Comment on above: Performed By: #### U ACSIND #### [facility] [address] [address] [address] Adrianna Caldera Potassium [Moles/Vol] 3.9 mmol/L Normal 3.5-5.1 [facility] Comment on above: Performed By: #### U ACSIND #### [facility] [address] [address] [address] Adrianna Caldera Sodium [Moles/Vol] 138 mmol/L Normal 136-145 [facility] Comment on above: Performed By: #### U ACSIND #### [facility] [address] [address] [address] Adrianna Caldera Urea nitrogen [Mass/Vol] 11.0 mg/dL Normal 7.0-18.0 [facility] Comment on above: Performed By: #### U ACSIND #### [facility] [address] [address] [address] Adrianna Caldera Urea nitrogen/Creatinine [Mass ratio] 11.2 mg/mg Normal [facility] Comment on above: Performed By: #### U ACSIND #### [facility] [address] [address] [address] Adrianna Caldera PREG QUANT HCGon 03-03-2022 HCG QUANT 1 mIU/mL Normal [facility] Comment on above: Performed By: #### P REGQNT #### [facility] [address] [address] [address] Adrianna Caldera HCG RANGE SEE BELOW Normal [facility] Comment on above: Result Comment: 5-50 0.2-1 WEEK 50-500 1-2 WEEKS 100-5,000 2-3 WEEKS 500-10,000 3-4 WEEKS 1,000-50,000 4-5 WEEKS 10,000-100,000 5-6 WEEKS 15,000-200,000 6-8 WEEKS 10,000-100,000 2-3 MONTHS Performed By: #### P REGQNT #### [facility] [address] [address] [address] Adrianna Caldera Creatinine and Glomerular fi ltration rate.predicted panel (S/P/Bld)Ordered By: aTe Natarajan on 02-10-2022 Creatinine [Mass/Vol] 1.03 mg/dL 0.44-1.03 [facility] Estimated glomerular filtrat ion rate (GFR) non- AmericanOrdered By: Tae Natarajan on 02-10-2022 GFR/1.73 sq M.predicted among non-blacks MDRD (S/P/Bld) [Vol rate/Area] > 60 mL/Min [facility] HCG ( test) IA.rapi d Ql (U)Ordered By: Tae Natarajan on 02-10-2022 HCG ( test) Ql (U) Negative [facility] No Panel InformationOrdered By: Tae Natarajan on 02-10-2022 Estimated GFR () > 60 mL/Min [facility] Comment on above: GFR estimated refere nce range: According to KDOQI guidelines, <60 ml/min/1.73m2 is sufficient to diagnose a patient with chronic kidney disease. Pharmacy Creatinine Clearance (Chem 88.89 [facility] Serum or plasma urea nitroge n measurement (mass/volume)Ordered By: Tae Natarajan on 02-10-2022 Urea nitrogen [Mass/Vol] 9 mg/dL 02-19 [facility] PREG QUANT HCGon 12-04-2021 HCG QUANT <1 Normal [facility] Comment on above: Performed By: #### P REGQNT #### [facility] [address] [address] [address] Adrianna Caldera HCG RANGE SEE BELOW Normal [facility] Comment on above: Result Comment: 5-50 0-1 WEEK 40-300 1-2 WEEKS 100-1,000 2-3 WEEKS 500-6,000 3-4 WEEKS 5,000-200,000 1-2 MONTHS 10,000-100,000 2-3 MONTHS 3,000-50,000 2ND TRIMESTER 1,000-50,000 3RD TRIMESTER Performed By: #### P REGQNT #### [facility] [address] [place], [place] [address] Dr. Adrianna Caldera CBC AUTO DIFFon 11-14-2021 BASO # 0.1 103/ul Normal 0.0-0.1 [facility] Comment on above: Performed By: #### C BC ####[facility] [address] [id number] Caldera Basophils/100 WBC (Bld) 0.5 % Normal 0.2-2.0 [facility] Comment on above: Performed By: #### C BC ####[facility] [address] [address]Dr. Adrianna Caldera EO # 0.1 103/ul Normal 0.0-0.7 [facility] Comment on above: Performed By: #### C BC ####[facility] [address] [address]DrAung Caldera Eosinophils/100 WBC (Bld) 0.8 % Critically low 0.9-7.0 [facility] Comment on above: Performed By: #### C BC ####[facility] [address] [place], [place] [address]DrAung Caldera Erythrocyte distribution width (RBC) [Ratio] 13.0 % Normal 11.0-15.0 [facility] Comment on above: Performed By: #### C BC ####[facility] [address] [address]DrAung Caldera Hematocrit (Bld) [Volume fraction] 38.5 % Normal 36.0-48.0 [facility] Comment on above: Performed By: #### C BC ####[facility] [address] [address]DrAung Caldera Hemoglobin (Bld) [Mass/Vol] 12.9 g/dL Normal 12.0-16.0 [facility] Comment on above: Performed By: #### C BC ####[facility] [address] [place], [place] [address]DrAung Caldera IG # 0.03 10e3/ul Normal 0.00-0.03 [facility] Comment on above: Performed By: #### C BC ####[facility] [address] [address]Dr. Jemimabenito Caldera IG % 0.3 % Normal 0.0-0.5 [facility] Comment on above: Performed By: #### C BC ####[facility] [address] [address]DrAung Caldera LYMPH # 2.8 103/ul Normal 1.2-3.8 [facility] Comment on above: Performed By: #### C BC ####[facility] [address] [address]DrAung Jemimabenito Caldera Lymphocytes/100 WBC (Bld) 27.4 % Normal 20.5-60.0 [facility] Comment on above: Performed By: #### C BC ####[facility] [address] [address]DrAung Caldera MANUAL DIFF REQ NO Normal [facility] Comment on above: Performed By: #### C BC ####[facility] [address] [id number]. Adrianna Werner MCH (RBC) [Entitic mass] 29.7 pg Normal 26.7-34.0 [facility] Comment on above: Performed By: #### C BC ####[facility] [address] [place], [place] [address]Dr. Jemimabenito Caldera MCHC (RBC) [Mass/Vol] 33.5 g/dL Normal 29.9-35.2 [facility] Comment on above: Performed By: #### C BC ####[facility] [address] [place], [place] [address]DrAung Caldera MCV (RBC) [Entitic vol] 88.7 fL Normal 81.0-99.0 [facility] Comment on above: Performed By: #### C BC ####[facility] [address] [id number] Caldera MONO # 0.7 103/ul Normal 0.3-0.8 [facility] Comment on above: Performed By: #### C BC ####[facility] [address] [address]Dr. Adrianna Caldera Monocytes/100 WBC (Bld) 6.5 % Normal 1.7-12.0 [facility] Comment on above: Performed By: #### C BC ####[facility] [address] [place] [id number]. Adrianna Caldera NEUT # 6.5 103/ul Normal 1.4-6.5 [facility] Comment on above: Performed By: #### C BC ####[facility] [address] [place] [address]Dr. Adrianna Caldera Neutrophils/100 WBC (Bld) 64.5 % Normal 43.0-75.0 [facility] Comment on above: Performed By: #### C BC ####[facility] [address] [place], [place] [address]Dr. Adrianna Caldera Platelet mean volume (Bld) [Entitic vol] 10.4 fL Normal 9.5-13.5 [facility] Comment on above: Performed By: #### C BC ####[facility] [address] [place], [place] [address]Dr. Adrianna Caldera PLT 324 103/ul Normal 150-450 [facility] Comment on above: Performed By: #### C BC ####[facility] [address] [place] [address]Dr. Adrianna Caldera RBC 4.34 106/ul Normal 4.20-5.40 [facility] Comment on above: Performed By: #### C BC ####[facility] [address]ef[address]ud[address] [place] [id number]. Adrianna Caldera WBC 10.1 103/ul Normal 4.0-11.0 [facility] Comment on above: Performed By: #### C BC ####[facility] [address]fr[address] [place] [id number]. Adrianna Caldera ER URINE PROFILEon 2 Bilirubin Ql (U) Negative Normal NEGATIVE [facility] Comment on above: Performed By: #### E RUR, PREGU, UMICRO ####[facility] [address] [place] [address]Dr. Adrianna Caldera Clarity (U) CLEAR Normal CLEAR [facility] Comment on above: Performed By: #### E RUR, PREGU, UMICRO ####[facility] [address] [place] [address]Dr. Adrianna Caldera Color (U) LT. YELLOW Normal YELLOW [facility] Comment on above: Performed By: #### E RUR, PREGU, UMICRO ####[facility] [address] [place] [address]Dr. Adrianna GOLDBERGAHD A micrscopic examination will be performed if indicated. Normal [facility] Comment on above: Performed By: #### E RUR, PREGU, UMICRO ####[facility] [address]cpbi[address] [place] [address]Dr. Adrianna Caldera Glucose Ql (U) Negative Normal NEGATIVE [facility] Comment on above: Performed By: #### E RUR, PREGU, UMICRO ####[facility] [address] [place] [address]Dr. Adrianna Caldera Hemoglobin Ql (U) LARGE Abnormal NEGATIVE [facility] Comment on above: Performed By: #### E RUR, PREGU, UMICRO ####[facility] [address] [place] [address]Dr. Adrianna Caldera Ketones Ql (U) Negative Normal NEGATIVE [facility] Comment on above: Performed By: #### E RUR, PREGU, UMICRO ####[facility] [address]be[address] [place] [address]Dr. Adrianna Caldera LEUKOCYTES Negative Normal NEGATIVE [facility] Comment on above: Performed By: #### E RUR, PREGU, UMICRO ####[facility] [address] [place] [address]Dr. Adrianna Caldera Nitrite Ql (U) Negative Normal NEGATIVE [facility] Comment on above: Performed By: #### E RUR, PREGU, UMICRO ####[facility] [address]fr[address]zcp[address] [place] [address]Dr. Adrianna Caldera pH (U) 6.5 [pH] Normal 5-9 [facility] Comment on above: Performed By: #### E RUR, PREGU, UMICRO ####[facility] [address] [place] [address]Dr. Adrianna Caldera SPEC GRAVITY 1.015 Normal 1.005-<=1.0 25 [facility] Comment on above: Performed By: #### E RUR, PREGU, UMICRO ####[facility] [address] [place] [address]Dr. Adrianna Caldera UA PROTEIN Negative Normal NEGATIVE/ TRACE [facility] Comment on above: Performed By: #### E RUR, PREGU, UMICRO ####[facility] [address]ome[address] [place] [address]Dr. Adrianna Caldera UR MICRO IND INDICATED Normal [facility] Comment on above: Performed By: #### E RUR, PREGU, UMICRO ####[facility] [address] [place] [address]Dr. Adrianna Caldera Urobilinogen Qn (U) 0.2 {Micheal'U}/dL Normal 0.2 - 1. 0 [facility] Comment on above: Performed By: #### E RUR, PREGU, UMICRO ####[facility] [address] [place] [address]Dr. Adrianna Caldera URon 11-14-2021 , QUAL Negative Normal NEGATIVE [facility] Comment on above: Performed By: #### E RUR, PREGU, UMICRO ####[facility] Wut[address]wlr[address] [place] [address]DrAung Caldera PROF CHEM 8 (BAS METB)on Anion gap [Moles/Vol] 13.5 mmol/L Normal Th [facility] Comment on above: Performed By: #### U ACSIND #### [facility] [address] [address] [address] Adrianna Caldera Calcium [Mass/Vol] 8.7 mg/dL Normal 8.5-10.1 [facility] Comment on above: Performed By: #### U ACSIND #### [facility] [address] [address] [address] Adrianna Caldera Chloride [Moles/Vol] 102 mmol/L Normal 98-107 [facility] Comment on above: Performed By: #### U ACSIND #### [facility] [address] [address] [address] Adrianna Caldera CO2 [Moles/Vol] 27.3 mmol/L Normal 21.0-32.0 [facility] Comment on above: Performed By: #### U ACSIND #### [facility] [address] [address] [address] Adrianna Caldera Creatinine [Mass/Vol] 0.85 mg/dL Normal 0.55-1.02 [facility] Comment on above: Performed By: #### U ACSIND #### [facility] [address] [address] [address] Adrianna Caldera EGFR-AF DJIBOUTIAN >60 Normal >=60 [facility] Comment on above: Performed By: #### U ACSIND #### [facility] [address] [address] [address] Adrianna Caldera EGFR-NON AF DJIBOUTIAN >60 Normal >=60 [facility] Comment on above: Performed By: #### U ACSIND #### [facility] [address] [address] [address] Adrianna Caldera Glucose [Mass/Vol] 104 mg/dL Normal 74-106 [facility] Comment on above: Performed By: #### U ACSIND #### [facility] [address] [address] [address] Adrianna Caldera Potassium [Moles/Vol] 3.8 mmol/L Normal 3.5-5.1 [facility] Comment on above: Performed By: #### U ACSIND #### [facility] [address] [address] [address] Adrianna Caldera Sodium [Moles/Vol] 139 mmol/L Normal 136-145 [facility] Comment on above: Performed By: #### U ACSIND #### [facility] [address] [address] [address] Adrianna Caldera Urea nitrogen [Mass/Vol] 8.0 mg/dL Normal 7.0-18.0 [facility] Comment on above: Performed By: #### U ACSIND #### [facility] [address] [address] [address] Adrianna Caldera Urea nitrogen/Creatinine [Mass ratio] 9.4 mg/mg Normal [facility] Comment on above: Performed By: #### U ACSIND #### [facility] [address] [address] [address] Adrianna Caldera URINE MICROSCOPIC ONLYon BACTERIA NONE SEEN Normal NONE SEEN [facility] Comment on above: Performed By: #### E RUR, PREGU, UMICRO ####[facility] [address] [place] [address]Dr. Adrianna Caldera Bacteria identified Cx Nom (U) NOT INDICATED Normal [facility] Comment on above: Performed By: #### E RUR, PREGU, UMICRO ####[facility] [address] [place] [address]Dr. Adrianna Caldera CAST NONE SEEN Normal NONE SEEN [facility] Comment on above: Performed By: #### E RUR, PREGU, UMICRO ####[facility] [address] [place] [address]Dr. Adrianna Caldera Crystals LM Nom (Urine sed) NONE SEEN Normal NONE SEEN [facility] Comment on above: Performed By: #### E RUR, PREGU, UMICRO ####[facility] [address] [place] [address]Dr. Adrianna Caldera Epithelial cells LM Ql (Urine sed) RARE Normal NONE SEEN /RARE [facility] Comment on above: Performed By: #### E RUR, PREGU, UMICRO ####[facility] [address] [place] [address]Dr. Adrianna Caldera MUCOUS NONE SEEN Normal NONE SEEN [facility] Comment on above: Performed By: #### E RUR, PREGU, UMICRO ####[facility] [address] [place], [place] [address]Wh. Adrianna Caldera RBC 10-20 Abnormal 0-2 [facility] Comment on above: Performed By: #### E RUR, PREGU, UMICRO ####[facility] [address] [place], [place] [address]Ky. Adrianna Caldera WBC 0-2 Abnormal NONE SEEN [facility] Comment on above: Performed By: #### E RUR, PREGU, UMICRO ####[facility] [address] [place], [place] [address]Fg. Adrianna Caldera HCG, Quantitative, on 10-12-2021 hCG Quant <1 <5 mIU/mL [facility] Comment on above: Non-preg premeno <=5 Postmeno <=8 Male <=3 If HCG results do not concur with clinical observations, additional testing to confirm results is recommended. Elevated results not associated with may be found in patients with other diseases such as tumors of the germ cells (testis, ovaries, etc.), bladder, pancreas, stomach, lungs, and liver. [facility] CBC with Auto Differentialon 10-11-2021 Absolute Eos # 0.08 [facility] Absolute Immature Granulocyte <0.03 [facility] Absolute Lymph # 1.85 [facility] alth Absolute Randall # 0.56 [facility] Basophils (Bld) [#/Vol] 0.04 10*3/uL [facility] Basophils/100 WBC (Bld) 1 % 0 - 2 % [facility] Eosinophils/100 WBC (Bld) 1 % 1 - 4 % [facility] Hematocrit (Bld) [Volume fraction] 38.9 % 36.3 - 47.1 % [facility] Hemoglobin.gastrointest inal spec 1 Ql (Stl) 12.7 g/dL 11.9 - 15.1 g/dL [facility] Immature granulocytes/100 WBC (Bld) 0 % 0 [facility] Lymphocytes/100 WBC (Bld) 29 % 24 - 43 % [facility] MCH (RBC) [Entitic mass] 29.7 pg 25.2 - 33.5 pg [facility] MCHC (RBC) [Mass/Vol] 32.6 g/dL 28.4 - 34.8 g/dL [facility] MCV (RBC) [Entitic vol] 90.9 fL 82.6 - 102.9 fL [facility] Monocytes/100 WBC (Bld) 9 % 3 - 12 % M [facility] NRBC Automated 0.0 0.0 per 100 WBC [facility] Platelet distribution width (Bld) [Ratio] 12.9 % 11.8 - 14.4 % [facility] Platelet mean volume (Bld) [Entitic vol] 10.3 fL 8.1 - 13.5 fL [facility] Platelets (Bld) [#/Vol] 351 10*3/uL [facility] RBC (Bld) [#/Vol] 4.28 10*6/uL 3.95 - 5.1 1 m/uL [facility] Segmented neutrophils/100 WBC (Bld) 60 % 36 - 65 % [facility] Segs Absolute 3.90 [facility] Healt h WBC (Bld) [#/Vol] 6.5 10*3/uL [facility] CT ABDOMEN PELVIS W IV CONTR AST [...] No hydronephrosis. Gallbladder is not remarkable. GI/Bowel: Upng-wg-xesisxfe retained stool without bowel obstruction. No pericecal inflammatory changes. Appendix unremarkable. Pelvis: There is mild prominence endometrial canal 7 mm. This may related to phase of menstrual cycle. Please correlate exam findings and history. No suspicious adnexal mass. Bladder remarkable. Peritoneum/Retroperi toneum: Trace free fluid dependent pelvis. No free air. No suspicious adenopathy. Bones/Soft Tissues: No suspicious osseous lesion MHPN [facility] Ashutosh Omalley MD - 10/11/2021 EXAMINATION: CT [...] No hydronephrosis. Gallbladder is not remarkable. GI/Bowel: Fwzw-jr-vrvwjhse retained stool without bowel obstruction. No pericecal [...] Negative acute inflammatory process or bowel obstruction. [employer] Work Phone: Radiology Study observation (narrative) [employer] Work Phone: CT ABDOMEN PELVIS W IV CONTR AST Additional Contrast? NoneOrdered By: Ashutosh Omalley on 10-11-2021 [employer] Work Phone: Comprehensive Metabolic Pane l w/ Reflex to MGon 10-11-2021 Albumin [Mass/Vol] 4.3 g/dL 3.5 - 5.2 g/dL [employer] Albumin/Globulin [Mass ratio] 1.7 {ratio} [employer] ALP (Bld) [Catalytic activity/Vol] 73 U/L 35 - 104 U/L [employer] ALT [Catalytic activity/Vol] 21 U/L 5 - 33 U/L [facility] Anion gap [Moles/Vol] 7 mmol/L Low 9 - 17 mmol/L [facility] AST [Catalytic activity/Vol] 15 U/L <32 [facility] Bilirubin [Mass/Vol] 0.25 mg/dL Low 0.3 - 1 .2 mg/dL [facility] Calcium [Mass/Vol] 9.1 mg/dL 8.6 - 10. 4 mg/dL [facility] Chloride [Moles/Vol] 105 mmol/L 98 - 10 7 mmol/L [facility] CO2 [Moles/Vol] 26 mmol/L 20 - 31 mmol/L [facility] Creatinine [Mass/Vol] 0.75 mg/dL 0.50 - 0.90 mg/dL [facility] Free PSA/Total PSA [Mass fraction] 6.8 g/dL 6.4 - 8.3 g/dL [facility] GFR >60 >60 mL/min [facility] GFR Non- >60 >60 mL/min [facility] Glucose [Mass/Vol] 116 mg/dL High 70 - 99 mg/dL [facility] Interpretation and review of laboratory results Abnormal [facility] Potassium [Moles/Vol] 3.9 mmol/L 3.7 - 5.3 mmol/L [facility] Sodium [Moles/Vol] 138 mmol/L 135 - 144 mmol/L [facility] Urea nitrogen (BldV) [Mass/Vol] 9 mg/dL 6 - 20 mg/dL [facility] Urea nitrogen/Creatinine (Bld) [Mass ratio] 12 [facility] Laboratory - Chemistry and C hemistry - challengeon 10-11-2021 GFR/1.73 sq M.predicted MDRD (S/P/Bld) [Vol rate/Area] [facility] Comment on above: Average GFR for 20-2 9 years old: 116 mL/min/1.73sq m Chronic Kidney Disease: <60 mL/min/1.73sq m Kidney failure: <15 mL/min/1.73sq m eGFR calculated using average adult body mass. Additional eGFR calculator available at: http://www.iHydroRun.Photoways/multiple_crcl_2012.htm Stage 1: Some kidney damage normal GFR Stage 2: Mild kidney damage GFR 60-89 Stage 3: Moderate kidney damage GFR 30-59 Stage 4: Severe kidney damage GFR 15-29 Stage 5: Severe kidney damage GFR <15 ESRD - chronic treatment by dialysis or transplant Lipaseon 10-11-2021 Lipase [Catalytic activity/Vol] 39 U/L 13 - 60 U/L [facility] Microscopic Urinalysison - [facility] Bacteria, UA TRACE Abnormal None [facility] Crystals, UA 2 TO 5 CALCIUM OXALATE Abnormal None /HPF [facility] Epithelial Cells UA 2 TO 5 [facility] Interpretation and review of laboratory results Abnormal [facility] RBC, UA 2 TO 5 [facility] WBC, UA 0 TO 2 [facility] No Panel Informationon 10-11 [employer] , Urineon Beta HCG ( test) Ql (U) Negative NEGATIVE [facility] Comment on above: Specimens with hCG l evels near the threshold of the test (25 mIU/mL) may give a negative or indeterminate result. In such cases, another test should be performed with a new specimen in 48-72 hours. If early is suspected clinically in this setting, correlation with quantitative serum b-hCG level is suggested. [employer] has confirmed the use of plasma for this test. This has not been cleared or approved by the U.S. Food and Drug Administration. The FDA has determined that such clearance is not necessary. [employer] Urinalysis with Reflex to Cu ltureon 10-11-2021 Bilirubin Urine Negative NEGATIVE [facility] Color, UA Yellow Yellow [facility] Glucose, Ur Negative NEGATIVE [facility] Interpretation and review of laboratory results Abnormal [facility] Ketones Ql (U) Negative NEGATIVE [facility] th Leukocyte esterase Test strip Ql (U) Negative NEGATIVE [facility] Nitrite, Urine Negative NEGATIVE [facility] pH, UA 6.0 [employer] Protein, UA Negative NEGATIVE [facility] Specific [place], UA >1.030 High [facility] Turbidity UA Clear Clear [facility] Urine Hgb TRACE Abnormal NEGATIVE [facility] Urobilinogen, Urine Normal Normal [facility] PREG QUANT HCGon 10-09-2021 HCG QUANT <1 Normal [facility] Comment on above: Performed By: #### P REGQNT ####[facility] [address] [place] [address]DrAung Caldera HCG RANGE SEE BELOW Normal [facility] Comment on above: Result Comment: 5-50 0-1 WEEK 40-300 1-2 WEEKS 100-1,000 2-3 WEEKS 500-6,000 3-4 WEEKS 5,000-200,000 1-2 MONTHS 10,000-100,000 2-3 MONTHS 3,000-50,000 2ND TRIMESTER 1,000-50,000 3RD TRIMESTER Performed By: #### P REGQNT ####[facility] [address] [place], [place] [address]My. Adrianna Caldera CULTURE, URINE, ROUTINEon CULTURE, URINE, ROUTINE SEE NOTE Abnormal [facility] Comment on above: Result Comment: CULTURE, URINE, ROUTINE Micro Number: [id number] Test Status: Final Specimen Source: Urine Specimen [...] By: #### 3 95 #### [facility] [address], [address] [place] [address] Dental Assistant Medical Assistant: Javid Broussard MD XR CHEST PORTABLEon 03-16-20 No acute process. [place] EXAMINATION: ONE XRAY VIEW OF THE CHEST 03/16/2020 3:33 pm COMPARISON: 07/13/2014 HISTORY: ORDERING SYSTEM PROVIDED HISTORY: cough, dyspnea TECHNOLOGIST PROVIDED HISTORY: cough, dyspnea FINDINGS: The lungs are without acute focal process. There is no effusion or pneumothorax. The cardiomediastinal silhouette is without acute process. The osseous structures are without acute process. [place], [place] James, Mhpn Incoming Radiant Results From [facility] - 03/16/2020 3:43 PM EDT EXAMINATION: ONE XRAY VIEW OF THE CHEST 03/16/2020 3:33 pm COMPARISON: 07/13/2014 HISTORY: ORDERING SYSTEM PROVIDED HISTORY: cough, dyspnea TECHNOLOGIST PROVIDED HISTORY: cough, dyspnea FINDINGS: The lungs are without acute focal process. There is no effusion or pneumothorax. The cardiomediastinal silhouette is without acute process. The osseous structures are without acute process. IMPRESSION: No acute process. [facility] [place] Urinalysis with Microscopico n 03-03-2020 Amorphous, UA 1+ Abnormal None [facility], [place] Bacteria, UA NOT REPORTED None [facility], [place] Bilirubin Urine Negative NEGATIVE [facility], [place] Casts UA NOT REPORTED /LPF [place], [place] Color, UA YELLO YELLOW [place], [place] Crystals, UA NOT REPORTED None /HPF [place], [place] Epithelial Cells UA None [place] Glucose, Ur Negative NEGATIVE [place] Interpretation and review of laboratory results Abnormal [place] Ketones Ql (U) Negative NEGATIVE [place] Leukocyte esterase Test strip Ql (U) Negative NEGATIVE [place] Mucus, UA NOT REPORTED None [place], [place] Nitrite, Urine Negative NEGATIVE [place], [place] Other Observations UA NOT REPORTED NOT REQ. M [place], [place] pH, UA 6.0 [place] Protein (U) [Mass/Vol] Negative NEGATIVE [place], [place] RBC (U) [#/Vol] None [facility] [place] Renal Epithelial, UA NOT REPORTED 0 /HPF [place] Specific [place], UA >1.030 High [place], [place] Trichomonas, UA NOT REPORTED None [facility] [place], [place] Turbidity UA CLOUDY Abnormal CLEAR [place] Urinalysis Comments NOT REPORTED [place], [place] Urine Hgb TRACE Abnormal NEGATIVE [place] Urobilinogen, Urine Normal Normal [place] WBC, UA 0 TO 2 [place] Yeast, UA NOT REPORTED None [place], [place] - [place] HEPATOBILIARY SCAN W EJEC TION FRACTIONon 10-12-2019 Cholesterol [Mass/Vol] No convincing scintigraphic evidence of acute or chronic cholecystitis. [place] EXAMINATION: NUCLEAR MEDICINE HEPATOBILIARY SCINTIGRAPHY (HIDA [...] 30-60 mins. Images were obtained in the AMERICAN projection and regions of interest were drawn [...] range is based on a limited study. [place], [place] James, Mhpn Incoming Radiant Results From [facility] - 10/12/2019 2:56 PM EDT EXAMINATION: NUCLEAR [...] 30-60 mins. Images were obtained in the AMERICAN projection and regions of interest were drawn [...] scintigraphic evidence of acute or chronic cholecystitis. [place], [place] HEPATOBILIARY SCAN W PHAR MACOLOGICAL [...] 30-60 mins. Images were obtained in the AMERICAN projection and regions of interest were drawn [...] Niraj Covarrubias MD 10/12/19 Final result Normal [facility] H. pylori urease IDon 2019 H. pylori urease ID Specimen Description .TISSUE, ST[place] [id number] EXP 04/05/20 Direct Exam NEGATIVE Report Status FINAL 10/06/2019 Normal [facility] Comment on above: Performed By: #### H JOELLE #### [facility] [address] [place] [address] Insurance Operations Rep: [place] [address] Insurance Operations Rep: Omar Segundo MD OPERATIVE REPORTon 0 OPERATIVE REPORT [address] [address] OPERATIVE REPORT PATIENT NAME: LULÚ GAITAN : 1995 MED REC NO: [id number] ROOM: ACCOUNT NO: [id number] ADMIT DATE: 10/05/2019 PROVIDER: Toño Blanc Jr [...] satisfactory condition. TOÑO BLANC JR [id number] Doc#: [id number] CC: Lisseth Blanc Jr Normal [facility] POCT urine pregnancyon 10-04 Beta HCG ( test) Ql (U) Negative NEGATIVE [place] Comment on above: Specimens with hCG l evels near the threshold of the test (25 mIU/mL) may give a negative or indeterminate result. In such cases, another test should be performed with a new specimen in 48-72 hours. If early is suspected clinically in this setting, correlation with quantitative serum b-hCG level is suggested. [id number] 10-05-2019 SARS-CoV-2 Not Detected Normal Not Detected [facility] Comment on above: Result Comment: (NOT E) The [employer] RealTime SARS-CoV-2 assay is a real-time (rt) reverse transcriptase (RT) polymerase chain reaction (PCR) test intended for the Stroho system. The SARS-CoV-2 primer and probe sets are designed to detect RNA from SARS-CoV-2 in nasopharyngeal (CAR WRECKER) and oropharyngeal (OP) swabs from patients with [...] The above 1 analytes were performed by [address] [address] Performed By: #### C OVID #### [facility] [address] [place] [address] Insurance Operations Rep: Samson Martinez DO [facility] [address] [place] [address] Insurance Operations Rep: Omar Segundo MD [facility] [address] [place] [address] Insurance Operations Rep: Bill Jolly MD Surgical Pathologyon 020 Surgical [...] SURGICAL PATHOLOGY CONSULTATION Patient Name: LULÚ GAITAN [facility] Rec: [id number] Path Number: [id number] [facility] ANATOMIC PATHOLOGY [address] [place] [phone] [facility] Comment on above: Performed By: #### P PPVS #### [address] [phone] Insurance Operations Rep: Omar Segundo MD [id number] 10-03-2019 SARS-CoV-2,Rapid [facility] Comment on above: Performed By: #### C OVID #### [facility] [address] [place] [address] Insurance Operations Rep: Samson Martinez DO [address] [phone] Insurance Operations Rep: Omar Segundo MD [facility] [address] [place] [address] Insurance Operations Rep: Bill Jolly MD SARS-CoV-2 [facility] Comment on above: Performed By: #### C OVID #### [facility] [address] [place] [address] Insurance Operations Rep: Samson Martinez DO [address] [phone] Insurance Operations Rep: Omar Segundo MD [facility] [address] [place] [address] Insurance Operations Rep: Bill Jolly MD SARS-CoV-2 Source .NASOPHARYNGEAL SWAB Normal [facility] [place] Comment on above: Performed By: #### C OVID #### [facility] [address] [place] [address] Insurance Operations Rep: Samson Martinez DO [facility] [address] [place] [address] Insurance Operations Rep: Omar Segundo MD [facility] [address] [place] [address] Insurance Operations Rep: Bill Jolly MD XR ABDOMEN (KUB) (SINGLE AP VIEW)on 02-08-2019 Nonspecific nonobstructive bowel gas pattern. No definite calcified urinary tract stones are seen. [place] EXAMINATION: ONE SUPINE XRAY VIEW(S) OF [...] nonobstructive bowel gas pattern. No unusual calcifications. [place], [place] James, [facility] Incoming Radiant Results From [facility] - 02/08/2019 4:29 PM EDT EXAMINATION: ONE [...] definite calcified urinary tract stones are seen. [place] Urinalysis with Microscopico n 02-06-2019 Amorphous, UA NOT REPORTED None [place] Bacteria, UA TRACE Abnormal None [place] Bilirubin Urine Negative NEGATIVE [place] Casts UA NOT REPORTED /LPF [place] Color, UA YELLOW YELLOW [place] Crystals UA NOT REPORTED None /HPF [place] Epithelial Cells UA 2 TO 5 [place] Glucose, Ur Negative NEGATIVE [place] Interpretation and review of laboratory results Abnormal [place] Ketones Ql (U) Negative NEGATIVE [place] Leukocyte esterase Test strip Ql (U) Negative NEGATIVE [place] Mucus, UA 1+ Abnormal None [place] Nitrite, Urine Negative NEGATIVE [place] Other Observations UA NOT REPORTED NOT REQ. M [place] pH, UA 7.0 [place] Protein (U) [Mass/Vol] Negative NEGATIVE Me [place] RBC (U) [#/Vol] 0 TO 2 [place] Renal Epithelial, Urine NOT REPORTED 0 /HPF [place] Specific [place], UA 1.020 [place], [place] Trichomonas, UA NOT REPORTED None [place] Turbidity UA CLEAR CLEAR [place] Urinalysis Comments NOT REPORTED [place] Urine Hgb TRACE Abnormal NEGATIVE [place] Urobilinogen, Urine Normal Normal [place] WBC, UA 0 TO 2 [place] Yeast, UA NOT REPORTED None [place] - [place] Wet prep, genitalon 02-07-20 19 Direct Exam NO TRICHOMONAS SEEN [place] Direct Exam YEAST [place] Direct Exam CLUE CELLS SEEN Abnormal [place] Interpretation and review of laboratory results Abnormal [place] Special Requests NOT REPORTED [place] Specimen Description .VAGINA [facility] [place], [place] Vital Signs Date Time Vital Sign Value Performing Clinician Facility 07-07-2023 10:35-0500 Body height 165.1 cm Matthew Lemus DO Work Phone: [facility] 07-07-2023 10:35-0500 Body mass index (BMI) [Ratio] 25.61 kg/m2 Matthew Lemus DO Work Phone: [facility] 07-07-2023 10:35-0500 Body temperature 97.7 [degF] Matthew Lemus DO Work Phone: [facility] 07-07-2023 10:35-0500 Body weight 69.81 kg Matthew Lemus DO Work Phone: [facility] 07-07-2023 10:35-0500 Diastolic blood pressure 70 mm[Hg] Matthew Lemus DO Work Phone: [facility] 07-07-2023 10:35-0500 Heart rate 100 /min Matthew Lemus DO Work Phone: [facility] 07-07-2023 10:35-0500 SaO2% (BldA) [Mass fraction] 96 % Matthew Lemus DO Work Phone: [facility] 07-07-2023 10:35-0500 Systolic blood pressure 100 mm[Hg] Matthew Lemus DO Work Phone: [facility] 05-19-2023 15:36-0500 Diastolic blood pressure 59 mm[Hg] DO Matthew Lemus Work Phone: [facility] 05-19-2023 15:36-0500 Heart rate 95 /min DO Matthew Lemus Work Phone: [facility] 05-19-2023 15:36-0500 Respiratory rate 16 /min DO Matthew Lemus Work Phone: [facility] 05-19-2023 15:36-0500 SaO2% (BldA) [Mass fraction] 99 % DO Matthew Lemus Work Phone: [facility] 05-19-2023 15:36-0500 Systolic blood pressure 109 mm[Hg] DO Matthew Lemus Work Phone: [facility] 05-19-2023 12:39-0500 Body height 165.1 cm DO Matthew Lemus Work Phone: [facility] 05-19-2023 12:39-0500 Body weight 70.76 kg DO Matthew Lemus Work Phone: [facility] 05-10-2023 11:11-0500 Diastolic blood pressure 78 mm[Hg] Rishi MARSHALL [facility] 05-10-2023 11:11-0500 Heart rate 72 /min Rishi MARSHALL [facility] 05-10-2023 11:11-0500 Systolic blood pressure 117 mm[Hg] Rishi MARSHALL [facility] 04-27-2023 13:30-0500 Body height 166.37 cm Imad Asaad Other [employer] [facility] [employer] Other 04-27-2023 13:30-0500 Body mass index (BMI) [Ratio] 25.71 kg/m2 Imad Asaad Other [employer] [facility] [employer] Other 04-27-2023 13:30-0500 Body weight 71.17 kg Imad Asaad Other [employer] Other 02-11-2023 18:20-0400 Body height 166.37 cm Sarah Anderson Other [employer] Other 02-11-2023 18:20-0400 Body mass index (BMI) [Ratio] 27.69 kg/m2 Sarah Anderson Other [employer] Other 02-11-2023 18:20-0400 Body temperature 98.1 [degF] Sarah Anderson Other [employer] Other 02-11-2023 18:20-0400 Body weight 76.66 kg Sarah Anderson Other [employer] Other 02-11-2023 18:20-0400 Diastolic blood pressure 78 mm[Hg] Sarah Aliceamond Other [employer] Other 02-11-2023 18:20-0400 Respiratory rate 18 /min Sarah Anderson Other [employer] Other 02-11-2023 18:20-0400 SaO2% (BldA) [Mass fraction] 99 % Sarah Anderson Other [employer] Other 02-11-2023 18:20-0400 Systolic blood pressure 116 mm[Hg] Sarah Anderson Other [employer] Other 02-06-2023 07:30-0400 Body temperature 98.1 [degF] DO Matthew Pamelahas Work Phone: [facility] 02-06-2023 07:30-0400 Diastolic blood pressure 60 mm[Hg] DO Matthew Yuhas Work Phone: [facility] 02-06-2023 07:30-0400 Heart rate 83 /min DO Matthew Yuhas Work Phone: [facility] 02-06-2023 07:30-0400 Respiratory rate 18 /min DO Matthew Yuhas Work Phone: [facility] 02-06-2023 07:30-0400 SaO2% (BldA) [Mass fraction] 97 % DO Matthew Lemus Work Phone: [facility] 02-06-2023 07:30-0400 Systolic blood pressure 102 mm[Hg] DO Matthew Lemus Work Phone: [facility] 02-03-2023 14:17-0400 Body height 165.1 cm DO Matthew Lemus Work Phone: [facility] 02-02-2023 23:53-0400 Body weight 74.15 kg DO Matthew Lemus Work Phone: [facility] 06-30-2022 23:12-0500 Diastolic blood pressure 56 mm[Hg] Courtney Hernandez MD Work Phone: [employer] 06-30-2022 23:12-0500 Heart rate 88 /min Courtney Hernandez MD Work Phone: [employer] 06-30-2022 23:12-0500 Respiratory rate 16 /min Courtney Hernandez MD Work Phone: [employer] 06-30-2022 23:12-0500 Systolic blood pressure 100 mm[Hg] Courtney Hernandez MD Work Phone: [employer] 06-30-2022 22:21-0500 Body height 165.1 cm Courtney Hernandez MD Work Phone: [employer] 06-30-2022 21:13-0500 SaO2% (BldA) [Mass fraction] 98 % Courtney Hernandez MD Work Phone: [employer] 06-30-2022 18:31-0500 Body mass index (BMI) [Ratio] 28.96 kg/m2 Courtney Hernandez MD Work Phone: [employer] 06-30-2022 18:31-0500 Body weight 78.93 kg Courtney Hernandez MD [facility] Phone: [facility] [employer] 06-30-2022 18:27-0500 Body temperature 98.4 [degF] Corutney Hernandez MD Work Phone: [facility] [employer] 06-17-2022 17:10-0500 Diastolic blood pressure 65 mm[Hg] [facility] [employer] 06-17-2022 17:10-0500 Systolic blood pressure 114 mm[Hg] [employer] [employer] 06-17-2022 17:10-0500 Systolic blood pressure 110 mm[Hg] [employer] 06-17-2022 17:00-0500 Body height 166.37 cm Bridgette [employer] 06-17-2022 17:00-0500 Body mass index (BMI) [Ratio] 28.43 kg/m2 [employer] 06-17-2022 17:00-0500 Body surface area Derived from formula 1.91 m2 [employer] [employer] 06-17-2022 17:00-0500 Body weight 78.7 kg Bridgette [employer] 06-17-2022 17:00-0500 Body weight 0.1 {percentile} [employer] 06-17-2022 17:00-0500 Diastolic blood pressure 70 mm[Hg] Bridgette Lewis [employer] 06-17-2022 17:00-0500 Heart rate 72 /min [facility] [employer] 06-17-2022 17:00-0500 Systolic blood pressure 118 mm[Hg] Bridgette Lewis [employer] 06-15-2022 17:35-0500 Body temperature 98.1 [degF] [employer] 06-15-2022 17:35-0500 Body weight 77.57 kg [employer] 06-15-2022 17:35-0500 Diastolic blood pressure 62 mm[Hg] [employer] 06-15-2022 17:35-0500 Heart rate 80 /min [employer] 06-15-2022 17:35-0500 Respiratory rate 16 /min [employer] 06-15-2022 17:35-0500 Systolic blood pressure 110 mm[Hg] [employer] 05-17-2022 11:45-0500 SaO2% (BldA) [Mass fraction] 98 % [employer] 05-17-2022 10:59-0500 Body height 166.37 cm [employer] 05-17-2022 10:59-0500 Body mass index (BMI) [Ratio] 28.19 kg/m2 [employer] 05-17-2022 10:59-0500 Body surface area Derived from formula 1.9 m2 [employer] 05-17-2022 10:59-0500 Body temperature 98.5 [degF] [employer] 05-17-2022 10:59-0500 Body weight 78.02 kg [employer] 05-17-2022 10:59-0500 Body weight 0.1 {percentile} Maricel Stafford [employer] 05-17-2022 10:59-0500 Diastolic blood pressure 60 mm[Hg] Maricel Ortega [employer] 05-17-2022 10:59-0500 Heart rate 90 /min Maricel Ortega [employer] 05-17-2022 10:59-0500 Respiratory rate 18 /min Maricel Ortega [facility] [employer] 05-17-2022 10:59-0500 Systolic blood pressure 112 mm[Hg] [employer] 02-10-2022 20:45-0400 Diastolic blood pressure 64 mm[Hg] DO Matthew Pamelahas Work Phone: [facility] 02-10-2022 20:45-0400 Heart rate 81 /min DO Matthew Yuhas Work Phone: [facility] 02-10-2022 20:45-0400 Respiratory rate 16 /min DO Matthew Yuhas Work Phone: [facility] 02-10-2022 20:45-0400 SaO2% (BldA) [Mass fraction] 99 % DO Matthew Yuhas Work Phone: [facility] 02-10-2022 20:45-0400 Systolic blood pressure 100 mm[Hg] DO Matthew Yuhas Work Phone: [facility] 02-10-2022 14:17-0400 Body height 165.1 cm DO Matthew Yuhas Work Phone: [facility] 02-10-2022 14:17-0400 Body weight 81.64 kg DO Matthew Yuhas Work Phone: [facility] 02-09-2022 10:01-0400 Body height 166.37 cm Kaleigh Guevara [employer] 02-09-2022 10:01-0400 Diastolic blood pressure 64 mm[Hg] Kaleigh Guevara [employer] 02-09-2022 10:01-0400 Heart rate 120 /min Kaleigh [employer] [facility] [employer] 02-09-2022 10:01-0400 Systolic blood pressure 118 mm[Hg] Kaleigh Guevara [employer] 01-29-2022 11:30-0400 Body height 166.37 cm Bridgette [employer] 01-29-2022 11:30-0400 Diastolic blood pressure 62 mm[Hg] [employer] Guilla[employer] 01-29-2022 11:30-0400 Heart rate 100 /min Bridgette [employer] 01-29-2022 11:30-0400 Systolic blood pressure 114 mm[Hg] Bridgette Lewis [employer] 01-25-2022 10:30-0400 Body height 166.37 cm Tae Natarajan Other [employer] Other 01-25-2022 10:30-0400 Body mass index (BMI) [Ratio] 29.49 kg/m2 Tae Natarajan Other [employer] Other 01-25-2022 10:30-0400 Body temperature 97.8 [degF] Tae Natarajan Other [employer] Other 01-25-2022 10:30-0400 Body weight 81.65 kg Tae Natarajan Other [employer] Other 01-25-2022 10:30-0400 Diastolic blood pressure 64 mm[Hg] Tae Natarajan Other [employer] Other 01-25-2022 10:30-0400 SaO2% (BldA) [Mass fraction] 99 % Tae Natarajan Other [employer] Other 01-25-2022 10:30-0400 Systolic blood pressure 110 mm[Hg] Tae Natarajan Other [employer] Other 01-19-2022 10:59-0400 Body height 166.37 cm Bridgette [employer] 01-19-2022 10:59-0400 Body mass index (BMI) [Ratio] 29.5 kg/m2 Bridgette Lewis [employer] 01-19-2022 10:59-0400 Body surface area Derived from formula 1.94 m2 Bridgette Lewis [employer] 01-19-2022 10:59-0400 Body weight 81.65 kg Bridgette [employer]us[employer] 01-19-2022 10:59-0400 Diastolic blood pressure 72 mm[Hg] Bridgette Lewis [employer] 01-19-2022 10:59-0400 Heart rate 112 /min Bridgette Lewis [employer] 01-19-2022 10:59-0400 Systolic blood pressure 114 mm[Hg] Bridgette Lewis [employer] 10-11-2021 18:26-0400 Diastolic blood pressure 77 mm[Hg] Matthew Lemus Work Phone: [employer] 10-11-2021 18:26-0400 Systolic blood pressure 130 mm[Hg] Matthew Lemus Work Phone: [employer] 10-11-2021 14:00-0400 Body mass index (BMI) [Ratio] 28.46 kg/m2 Matthew Lemus Work Phone: [employer] 10-11-2021 14:00-0400 Body temperature 97.81 [degF] Matthew Lemus Work Phone: [employer] 10-11-2021 14:00-0400 Body weight 77.56 kg Matthew Lemus Work Phone: [employer] 10-11-2021 14:00-0400 Heart rate 95 /min Matthew Lemus Work Phone: [employer] 10-11-2021 14:00-0400 Respiratory rate 16 /min Matthew Lemus Work Phone: [employer] 10-11-2021 14:00-0400 SaO2% (BldA) [Mass fraction] 98 % Matthew Lemus Work Phone: [employer] 09-29-2021 13:04-0400 Blood Pressure Location Rishi Rezzcard [facility] 09-29-2021 13:04-0400 Diastolic blood pressure 83 mm[Hg] Rishi MARSHALL [facility] 09-29-2021 13:04-0400 Heart rate 100 /min Rishi MARSHALL [facility] 09-29-2021 13:04-0400 Systolic blood pressure 124 mm[Hg] Rishi MARSHALL [facility] Nancy 09-04-2021 09:22-0400 Blood Pressure Location Rishi Rezzcard [facility] 09-04-2021 09:22-0400 Diastolic blood pressure 67 mm[Hg] Rishi MARSHALL [facility] 09-04-2021 09:22-0400 Heart rate 78 /min Rishi MARSHALL [facility] 09-04-2021 09:22-0400 Respiratory rate 16 /min Rishi MARSHALL [facility] 09-04-2021 09:22-0400 Systolic blood pressure 97 mm[Hg] Rishi MARSHALL [facility] 03-16-2020 15:12-0400 BMI (Body Mass Index) 25.96 kg/m2 [facility] 03-16-2020 15:12-0400 Body Temperature 99 [degF] [facility] [place] [facility] 15:12-0400 Body weight 70.76 kg [place] 03-16-2020 15:12-0400 BP Diastolic 69 mm[Hg] [facility] [place] 03-16-2020 15:12-0400 BP Systolic 125 mm[Hg] [facility] , [place] 03-16-2020 15:12-0400 Pulse (Heart Rate) 77 /min [facility] 03-16-2020 15:12-0400 Pulse Oximetry 99 % [facility] [place] 03-16-2020 15:12-0400 Respiratory Rate 18 /min [facility] 10-05-2019 13:30-0400 Body Temperature 98.1 [degF] [facility] [place] 10-05-2019 13:30-0400 BP Diastolic 72 mm[Hg] [place] 10-05-2019 13:30-0400 BP Systolic 110 mm[Hg] [place] 10-05-2019 13:30-0400 Pulse (Heart Rate) 76 /min [place] 10-05-2019 13:30-0400 Pulse Oximetry 100 % [place] 10-05-2019 13:30-0400 Respiratory Rate 18 /min [place] 10-05-2019 10:26-0400 BMI (Body Mass Index) 24.37 kg/m2 [place] 10-05-2019 10:26-0400 Body weight 68.49 kg [place] 10-05-2019 10:26-0400 Height 167.6 cm [place] Encounters Encounter Date Encounter Type Care Provider Facility Start: 09-27-2023 ambulatory Rishi Cardenas ty:[facility] Start: 07-07-2023 End: 07-07-2023 ambulatory [facility] Start: 07-07-2023 End: 07-07-2023 Office outpatient visit 25 minutes [facility] DO Work Phone: [facility] Comment on above: Bipolar 1 disorder ( [facility]) (Primary Dx); Oropharyngeal dysphagia; Generalized anxiety disorder with panic attacks Start: 07-04-2023 End: 07-04-2023 ambulatory CASEY LETY Not Available Start: 06-29-2023 End: 06-29-2023 ambulatory CASEY LETY Not Available Start: 06-13-2023 End: 06-13-2023 ambulatory CASEY LETY Not Available Start: 06-02-2023 End: 06-02-2023 ambulatory JORGE SIGALA [facility] Start: 05-19-2023 End: 05-19-2023 ambulatory Imad Asaad Facility:[facility] Start: 05-19-2023 End: 05-19-2023 Admission to same day surgery center DO Matthew Lemus Work Phone: [facility]Digestive [facility] Work Phone: Start: 05-19-2023 End: 05-19-2023 ambulatory DO Matthew Lemus Work Phone: [facility] Work Phone: Start: 05-17-2023 End: 05-17-2023 ambulatory Imad Asaad Other [employer] Other Start: 05-17-2023 Telephone encounter Imad Asaad [facility] Start: 05-12-2023 End: 05-12-2023 ambulatory Imad Asaad Facility:[facility] Start: 05-12-2023 End: 05-12-2023 ambulatory DO Matthew Lemus Work Phone: [facility] Work Phone: Start: 05-12-2023 End: 05-12-2023 Patient encounter procedure DO Matthew Lemus Work Phone: [facility]-CT Scan [facility] [place] Work Phone: Start: 05-10-2023 End: 05-11-2023 ambulatory Rishi MARSHALL Facility:[facility] Start: 05-10-2023 End: 05-10-2023 Patient encounter procedure Rishi MARSHALL [facility] Start: 04-27-2023 End: 04-27-2023 ambulatory Imad Asaad Other [employer] Other Start: 04-27-2023 Office outpatient ne w 45 minutes Imad Asaad [facility] Start: 04-14-2023 End: 04-15-2023 ambulatory Rishi MARSHALL Facility:[id number] Start: 03-10-2023 End: 03-10-2023 Emergency department patient visit VINOD RAY [facility] Start: 02-11-2023 End: 02-11-2023 ambulatory Sarah Anderson Other [employer] Other Start: 02-11-2023 Office outpatient visit 15 minutes Sarah Monica [facility] Start: 02-03-2023 Telephone encounter Christine Macias DO Work Phone: Gastroenterology Comment on above: Appointment Start: 02-02-2023 End: 02-06-2023 Evaluation and management of inpatient Karri Asad Facility:[facility] Start: 02-02-2023 End: 02-06-2023 Evaluation and management of inpatient DO Matthew Lemus Work Phone: [address] Work Phone: Start: 02-02-2023 ambulatory Casper Arteaga Facility:[facility] Start: 09-23-[address] CASEY DAVIDSON . Facili ty:[facility] Start: 09-16-2022 End: 09-16-[address] BRIDGETTE KRAUSE . Facility:[facility] Start: 09-04-2022 End: 09-04-2022 ambulatory CHUY MCNAMARA Facility:[facility] Start: 08-30-2022 End: 08-31-[address] CASEY DAVIDSON . Facility:[facility] Start: 08-17-2022 End: 08-18-[address] CASEY DAVIDSON . Facility:[facility] Start: 08-10-2022 End: 08-11-2022 ambulatory CASEY DAVIDSON [facility] Start: 07-21-2022 End: 07-21-[address] CASEY DAVIDSON . Facility:[facility] Start: 07-20-2022 End: 07-21-[address] CASEY DAVIDSON . Facility:[facility] Start: 07-06-2022 End: 07-06-[address] MATTHEW LEMUS Facility:[facility] Start: 06-30-2022 End: 07-01-2022 ambulatory BRIDGETTE LEWIS [facility] Start: 06-30-2022 End: 07-01-2022 Emergency department patient visit Courtney Hernandez MD [facility] Phone[facility] Comment on above: Hyperemesis [...] Start: 06-15-2022 Office Services Maricel Stafford Other [facility] Office Start: 06-09-[address] MATTHEW LEMUS [...] surgery center DO Matthew Lemus Work Phone: [facility]-Interventional Radiology Start: 02-09-2022 Patient encounter procedure Kaleighjacob Guevara [employer] Start: 02-09-2022 Periodic preventive med est patient 18-39 yrs Kaleigh aJmi Guevara Other [facility] Office Start: 02-04-2022 Encounter for genera l adult medical examination without abnormal findings Bridgette Lewis [employer] Start: 02-04-2022 Lab Bridgette lindsay Other [facility] Office Start: 02-04-2022 Office Services Kaleigh Hernandez ams Other [facility] Office Start: 01-29-2022 Office outpatient visit 15 minutes Bridgette Lewis Other [facility] Office Start: 01-25-2022 End: 01-25-2022 ambulatory Tae Natarajan Other [employer] Other Start: 01-25-2022 Office outpatient ne w 45 minutes Tae Natarajan [facility] Vascular Surgery Start: 01-19-2022 Office outpatient ne w 30 minutes Bridgette Lewis Other [facility] Office Start: 12-17-2021 Encounter for genera l adult medical examination without abnormal findings [employer] Start: 12-04-2021 End: 12-05-[address] MATTHEW LEMUS Facility:[facility] Start: 11-14-2021 End: 11-14-[address] MATTHEW LEMUS Facility:[facility] Start: 10-12-2021 End: 10-12-2021 Subsequent hospital visit by physician Matthew Lemus Work Phone: [facility] Laboratory Start: 10-11-2021 End: 10-11-2021 Emergency department patient visit Matthew Lemus Work Phone: [facility] ED Comment on above: Lower abdominal pain (Primary Dx) Start: 10-09-2021 End: 10-10-[address] MATTHEW LEMUS Facility:[facility] Start: 09-29-2021 End: 09-29-2021 Patient encounter procedure Rishi R ROLANDO [facility] Nancy Start: 09-04-2021 End: 09-04-2021 Patient encounter procedure Rishi R ROLANDO [facility] Dina Start: 03-16-2020 End: 03-16-2020 Emergency department patient visit Catracho Parisi Work Phone: [facility] ED Comment on above: Viral URI with cough (Primary Dx) Start: 03-07-2020 End: 03-07-2020 Subsequent hospital visit by physician Areli Covid Screening Schedule [facility] Covid Screening Comment on above: Acute frontal sinusi tis, recurrence not specified Start: 03-03-2020 End: 03-03-2020 Subsequent hospital visit by physician Lisseth MAGALLANES Laboratory Comment on above: Gross hematuria Start: 10-12-2019 End: 10-15-2019 Patient encounter procedure [facility] Start: 10-12-2019 End: 10-14-2019 Subsequent hospital visit by physician Juan A Laguerre Room [facility] Nuclear Medicine Comment on above: Intractable nausea a nd vomiting Start: 10-05-2019 End: 10-05-2019 Patient encounter procedure [facility] Start: 10-05-2019 End: 10-05-2019 Subsequent hospital visit by physician Toño Blanc Work Phone: [facility] Start: 10-03-2019 End: 10-04-2019 Patient encounter procedure BRIANA RUBIO [facility] Start: 10-03-2019 End: 10-03-2019 Subsequent hospital visit by physician Lisseth CRUZZ [place] [facility] DO[facility] Start: 10-02-2019 End: 10-02-2019 Subsequent hospital visit by physician Tonio Covid19 Pat Screening Schedule [facility] Pre-Admit Testing Comment on above: No Show Start: 02-08-2019 End: 02-10-2019 Subsequent hospital visit by physician Khalida [address] Dr Room 2 [facility] Radiology Comment on above: Gross hematuria; Urgency [...] Phone: Start: 02-09-2022 Docrev cur meds by [facility] Start: 02-04-2022 Comprehensive metabolic panel Kaleigh camp Start: 02-04-2022 Erythrocyte mean corpuscular volume determination Kaleigh Guevara Start: 02-04-2022 Lipid panel Kaleigh Guevara Start: 02-04-2022 Radiologic exam chest 2 views Bridgette sanford Start: 02-04-2022 Thyroid stimulating hormone measurement Kaleigh Guevara Start: 02-04-2022 Urinalysis, automated Kaleigh Guevara Start: 01-29-2022 Docrev cur meds by [facility] Start: 01-19-2022 Docrev cur meds by [facility] Start: 01-19-2022 Ketorolac tromethamine inj [...] Urine test visual color cmprsn meths Christine [place] WoodsA[place] Rivas PA-C Work Phone: Start: 09-29-2021 Cystoscopy Rishi MARSHALL Start: 03-16-2020 Radiologic exam chest single view Neal Parisi Work Phone: Start: 03-03-2020 Urnls dip stick/tablet reagent auto microscopy Venancio Delgado Work Phone: Start: 10-12-2019 Hepatobil syst imag inc gb w/pharma intervenj TOÑO BLANC Start: 10-12-2019 Hepatobil syst imag inc gb w/pharma intervenj oTño Blanc Work Phone: Start: 10-05-2019 DISCHARGE PATIENT [...] Td Vaccines (10 - Td or Tdap) [facility] Start: 04-09-2026 HIV screen HIV screen [place] Comment on above: Postponed from 2012 (Unavailable) Start: 04-09-2026 HIV screening HIV screen [facility] Comment on above: Postponed from 2012 (Unavailable) Start: 11-10-2025 DTaP/Tdap/Td vaccine (5 - Td or Tdap) DTaP/Tdap/Td vaccine (5 - Td or Tdap) [facility] Start: 11-10-2025 DTaP/Tdap/Td vaccine (6 - Tdap) DTaP/Tdap/Td vaccine (6 - Tdap) [place] Start: 07-07-2024 Adult BMI Screening Adult BMI Screening [facility] Start: 07-07-2024 Depression Screening Depression Screening [facility] Start: 07-07-2024 Tobacco Screening Tobacco Screening [facility] Start: 05-19-2023 [facility] Start: 02-06-2023 [facility] Start: 02-02-2023 Hospital admission [facility] Start: 01-28-2023 COVID-19 Vaccine ( season) COVID-19 Vaccine ( season) [facility] Start: 01-28-2023 Influenza vaccination [facility] Start: 08-09-2022 Lipid panel Lipid panel [facility] Start: 08-09-2022 Transferase alanine amino alt sgpt ALT [facility] Start: 08-09-2022 Transferase aspartate amino ast sgot AST [facility] Start: 06-21-2022 Iv infusion hydration initial 31 min-1 hour IV HYDRATION,INITIAL,31 MINUTES TO 1 HOUR [employer] Start: 06-17-2022 Basic metabolic panel calcium total Chem 8 [employer] Start: 06-15-2022 Brncdilat rspse spmtry pre&post-brncdilat admn Spirometry with bronchodilator [employer] Start: 05-30-2022 DEPRESSION ASSESSMENT DEPRESSION ASSESSMENT [facility] Start: 05-17-2022 Nitric oxide gas determination FENO [employer] Start: 04-03-2022 Depression Monitoring Depression Monitoring [facility] Start: 03-29-2022 Gonadotropin chorionic quantitative Beta HCG Quantitative [employer] Start: 03-17-2022 Gonadotropin chorionic quantitative Beta HCG Quantitative [employer] Start: 02-10-2022 [facility] Work Phone: Start: 02-04-2022 Assay of thyroid stimulating hormone tsh TSH [employer] Start: 02-04-2022 Blood count complete automated CBC PLATELET COUNT; AUTOMATED [employer] Start: 02-04-2022 Comprehensive metabolic panel Comp [employer] Start: 02-04-2022 Lipid panel Lipid panel [employer] Start: 02-04-2022 Urnls dip stick/tablet rgnt auto w/o microscopy UA [facility] Start: 02-04-2022 Chest PA & LAT [employer] Start: 01-19-2022 Therapeutic prophylactic/dx injection subq/im Sub Q/ IM injection [facility] Start: 12-28-2021 Influenza [facility] Start: 12-23-2021 Skin test tuberculosis intradermal PPD (Skin test; tuberculosis, intradermal) [facility] Start: 07-29-2021 COVID-19 Vaccine (3 - Booster for Pfizer series) COVID-19 Vaccine (3 - Booster for Pfizer series) [facility] Start: 05-12-2021 COVID-19 Vaccine (5 - Booster) COVID-19 Vaccine (5 - Booster) [facility] Start: 03-03-2020 End: 03-03-2020 Office Visit 03/03/2020 Office Visit Urology Jose Lala MD [address], [address] [place] [address] [facility] Part of [facility] Start: 02-07-2020 Chlamydia screen Chlamydia screen [place] Start: 02-07-2020 Screening for Chlamydia trachomatis Chlamydia screen [facility] Start: 01-29-2020 Influenza vaccination [place] Start: 11-04-2019 Chlamydia screen Chlamydia screen [place] Start: 10-05-2019 End: 10-05-2019 Hospital Encounter [facility] Comment on above: EGD ESOPHAGOGASTRODUODENOSCOPY Start: 02-20-2019 End: 02-20-2019 Office Visit 02/20/2019 Office Visit 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, 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 [place] [address] [phone] [facility] Start: 02-08-2019 End: 02-08-2019 Appointment 02/08/2019 Appointment Radiology [facility] Start: 01-28-2019 Influenza vaccination Flu vaccine (#1) [place] Start: 2018 Cervical cancer screen Cervical cancer screen [place] Start: 2018 PAP TESTING PAP TESTING [facility] Start: 2018 Screening for malignant neoplasm of cervix [facility] Start: 2016 Urine microalbumin profile DTAP,TDAP,TD (1 - Tdap) [facility] Start: 2015 Adult BMI Follow Up Plan Adult BMI Follow Up Plan [facility] Start: 2015 Hepatitis C screening Hepatitis C screen [facility] Start: 2015 HEPATITIS C SCREENING HEPATITIS C SCREENING [facility] Start: 2015 HIV SCREENING HIV SCREENING [facility] Start: 02-05-2014 Varicella vaccine (2 of 2 - 13+ 2-dose series) Varicella vaccine (2 of 2 - 13+ 2-dose series) [facility] Start: 2012 HPV vaccine (1 - Female 3-dose series) HPV vaccine (1 - Female 3-dose series) [place] Start: 2011 PEDS TO ADULT TRANSITION ANNUAL ASSESSMENT PEDS TO ADULT TRANSITION ANNUAL ASSESSMENT [facility] Start: 2010 Varicella Vaccine (1 of 2 - 13+ 2-dose series) Varicella Vaccine (1 of 2 - 13+ 2-dose series) [place] Start: 2009 PEDS TO ADULT TRANSITION INITIAL DISCUSSION PEDS TO ADULT TRANSITION INITIAL DISCUSSION [facility] Start: 2008 HPV vaccine (1 - 2-dose series) HPV vaccine (1 - 2-dose series) [facility] Start: 2006 HPV VACCINE (1 - 2-dose series) HPV VACCINE (1 - 2-dose series) [facility] Start: 2003 Pneumococcal 0-64 years Vaccine (1 - PCV) Pneumococcal 0-64 years Vaccine (1 - PCV) [facility] Start: 2003 Pneumococcal 0-64 years Vaccine (1 of 1 - PPSV23) Pneumococcal 0-64 years Vaccine (1 of 1 - PPSV23) [place] Start: 1998 Varicella vaccine (1 of 2 - 2-dose childhood series) Varicella vaccine (1 of 2 - 2-dose childhood series) [place] Start: 1997 COVID-19 VACCINE (#1) COVID-19 VACCINE (#1) [facility] Start: 1997 HEPATITIS B (1 of 3 - 3-dose series) HEPATITIS B (1 of 3 - 3-dose series) [facility] End: 01-15-2019 Bacteria identified Cx Nom (U) Urine Culture Microbiology Routine Dysuria Gross hematuria 1 Occurrences starting 01/15/2019 until 01/15/2019 [place] Comment on above: 1 Occurrences starting 01/15/2019 until 01/15/2019 End: 02-06-2019 C.trachomatis N.gonorrhoeae DNA, Urine C.trachomatis N.gonorrhoeae DNA, Urine Microbiology Routine Gross hematuria Urgency of urination 1 Occurrences starting 02/06/2019 until 02/06/2019 [place] Comment on above: 1 Occurrences starting 02/06/2019 until 02/06/2019 C.trachomatis N.gono rrhoeae DNA, Urine C.trachomatis N.gonorrhoeae DNA, Urine Microbiology Routine Gross hematuria Urgency of urination 02/06/2019 12:22 PM EDT [place] COVID-19 [place] End: 10-02-2019 COVID-19 COVID-19 Lab Routine One Time for 1 Occurrences starting 10/02/2019 until 10/02/2019 [place] Comment on above: One Time for 1 Occurrences starting 09/2019 until 10/02/2019 End: 03-07-2020 COVID-19 Ambulatory COVID-19 Ambulatory Lab Routine Acute frontal sinusitis, recurrence not specified 1 Occurrences starting 03/07/2020 until 03/07/2020 [place] Comment on above: 1 Occurrences starting 03/07/2020 until 03/07/2020 COVID-19 Ambulatory COVID-19 Amb ulatory Lab Routine Acute frontal sinusitis, recurrence not specified 03/07/2020 11:12 AM EDT [place] End: 03-16-2020 COVID-19, PCR COVID-19, PCR Lab Routine One Time for 1 Occurrences starting 03/16/2020 until 03/16/2020 [place] Comment on above: One Time for 1 Occurrences starting 02/27 until 03/16/2020 End: 03-03-2020 Culture, Urine Culture, Urine Microbiology Routine Gross hematuria 1 Occurrences starting 03/03/2020 until 03/03/2020 [place] Comment on above: 1 Occurrences starting 03/03/2020 until 03/03/2020 Culture, Urine [place] End: 06-30-2022 Culture, Urine [facility] Work Phone: Comment on above: One Time for 1 Occurrences starting 05/2022 until 06/30/2022 [facility]: Release Upon Ordering for 1 Occurrences starting 10/05/2019 Initiate Oxygen Therapy Protocol Initiate Oxygen Therapy Protocol Respiratory Care Routine Daily until discontinued starting 10/05/2019 [facility] Comment on above: Daily until discontinued starting 2019 Patient Education Depression, Ad ult (DC) [facility] DC Instructions [facility] Work Phone: Patient referral [facility] Work Phone: Phase I & II - metered glucose P hase I & II - metered glucose Point of Care Testing Routine As Needed until discontinued starting 10/05/2019 [facility] Comment on above: As Needed until discontinued starting End: 10-05-2019 POC Urine Qual POC Urine Qual Point of Care Testing Routine One Time for 1 Occurrences starting 10/05/2019 until 10/05/2019 [facility] Comment on above: One Time for 1 Occurrences starting 12/2019 until 10/05/2019 Surgical Pathology Surgical Path ology Lab Routine Release Upon Ordering for 1 Occurrences starting 10/05/2019 [facility] Comment on above: Release Upon Ordering for 1 Occurrences starting 10/05/2019 End: 02-06-2019 Urine culture clean catch Urine culture clean catch Microbiology Routine Gross hematuria Urgency of urination 1 Occurrences starting 02/06/2019 until 02/06/2019 [facility] Comment on above: 1 Occurrences starting 02/06/2019 until 02/06/2019 Urine culture clean catch Urine culture clean catch Microbiology Routine Gross hematuria Urgency of urination 02/06/2019 12:22 PM EDT [facility] Immunizations Immunization Date Immunization Notes Care Provider Frank blanco 09-23-2022 RHO(D) immune globulin- IV or IM Matthew Yuhas DO Work Phone: [facility] 09-17-2022 RHO(D) immune globulin- IV or IM Matthew Yuhas DO Work Phone: [facility] 09-17-2022 tetanus toxoid, reduced diphtheria toxoid, and acellular pertussis vaccine, adsorbed Rishi MARSHALL [facility] 01-05-2022 Tubersol [employer] 12-23-2021 Tubersol [facility] [employer] 04-28-2021 influenza virus vaccine, unspecified formulation Rishi MARSHALL [facility] 04-28-2021 influenza, injectabl e, quadrivalent, preservative free Matthew Lemus DO Work Phone: [facility] 03-17-2021 COVID-19, Pfizer, 30mcg/0.3ml [place] [employer] 02-28-2021 SARS-CoV-2 (COVID-19 ) mRNA BNT-162b2 vax Rishi MARSHALL [facility] 02-27-2021 SARS-CoV-2 (COVID-19 ) Ad26 vaccine, recombinant Rishi MARSHALL [facility] 02-08-2021 SARS-CoV-2 (COVID-19 ) mRNA BNT-162b2 vax Rishi MARSHALL [facility] 01-28-2021 SARS-CoV-2 (COVID-19 ) Ad26 vaccine, recombinant Rishi MARSHALL [facility] 01-20-2021 COVID-19, Pfizer, 30mcg/0.3ml [employer] 05-02-2018 influenza virus vaccine, unspecified formulation [facility] [place] 01-27-2016 Influenza Vaccine, unspecified formulation [facility] [place] 01-27-2016 influenza virus vaccine, unspecified formulation Rishi MARSHALL [facility] 01-27-2016 influenza, seasonal, injectable, preservative free Matthew Lemus DO Work Phone: [facility] 12-29-2015 hepatitis B vaccine, adult dosage Rishi MARSHALL [facility] 12-17-2015 hepatitis B vaccine, adult dosage Matthew Lemus DO Work Phone: [facility] 12-17-2015 hepatitis B vaccine, unspecified formulation [facility] [place] 11-26-2015 hepatitis B vaccine, adult dosage Rishi MARSHALL [facility] 11-11-2015 diphtheria, tetanus toxoids and acellular pertussis vaccine [facility] 11-11-2015 tetanus toxoid, reduced diphtheria toxoid, and acellular pertussis vaccine, adsorbed Rishi MARSHALL [facility] 01-08-2014 tetanus toxoid, reduced diphtheria toxoid, and acellular pertussis vaccine, adsorbed Rsihi MARSHALL [facility] 01-08-2014 varicella virus vaccine Rishi MARSHALL [facility] 10-17-2002 diphtheria, tetanus toxoids and acellular pertussis vaccine, unspecified formulation Matthew Lemus DO Work Phone: [facility] 10-17-2002 DTaP, unspecified formulation Rishi MARSHALL [facility] 10-17-2002 measles, mumps and rubella virus [facility] [place] 10-17-2002 poliovirus vaccine, inactivated [facility] [place] 10-17-2002 poliovirus vaccine, unspecified formulation Matthew Miltons DO Work Phone: [facility] 10-17-2002 tetanus toxoid, reduced diphtheria toxoid, and acellular pertussis vaccine, adsorbed Matthew Miltons DO Work Phone: [facility] 05-17-1998 haemophilus influenz ae type b vaccine, conjugate unspecified formulation Matthew Miltons DO Work Phone: [facility] 05-17-1998 Hib, unspecified [facility] [place] 05-17-1998 poliovirus vaccine, inactivated [facility] [place] 03-27-1998 diphtheria, tetanus toxoids and acellular pertussis vaccine [facility] [place] 03-27-1998 diphtheria, tetanus toxoids and acellular pertussis vaccine, unspecified formulation Matthew Lemus DO Work Phone: [facility] 03-27-1998 DTaP, unspecified formulation Rishi MARSHALL [facility] 03-27-1998 haemophilus influenz ae type b vaccine, conjugate unspecified formulation Matthew Lemus DO Work Phone: [facility] 03-27-1998 haemophilus influenz ae type b vaccine, HbOC conjugate Matthew Lemus DO Work Phone: [facility] 03-27-1998 Hib, unspecified [facility] [place] 03-27-1998 measles, mumps and rubella virus vaccine [facility] [place] 03-27-1998 tetanus toxoid, reduced diphtheria toxoid, and acellular pertussis vaccine, adsorbed Matthew Lemus DO Work Phone: [facility] 1997 diphtheria, tetanus toxoids and acellular [place] diphtheria, tetanus toxoids and acellular pertussis vaccine, unspecified formulation Matthew Lemus DO Work Phone: [facility] 1997 DTaP, unspecified formulation Rishimaricel MARSHALL [facility] 1997 haemophilus influenz ae type b conjugate and Hepatitis B vaccine Matthew Lemus DO Work Phone: [facility] 1997 haemophilus influenz ae type b vaccine, conjugate unspecified formulation Matthew Lemus DO Work Phone: [facility] 1997 hepatitis B vaccine, adult dosage Matthew Lemus Work Phone: [facility] Work Phone: 1997 hepatitis B vaccine, unspecified formulation [place], [place] 1997 Hib, [place] poliovirus vaccine, inactivated [facility] [place] 1997 tetanus toxoid, reduced diphtheria toxoid, and acellular pertussis vaccine, adsorbed Matthew Lemus DO Work Phone: [facility] 1997 trivalent poliovirus vaccine, live, oral Matthew Lemus DO Work Phone: [facility] 1997 diphtheria, tetanus toxoids and acellular pertussis vaccine [facility] [place] [facility] diphtheria, tetanus toxoids and acellular pertussis vaccine, unspecified formulation Matthew Lemus DO Work Phone: [facility] 1997 DTaP, unspecified formulation Rishi MARSHALL [facility] 1997 haemophilus influenz ae type b vaccine, HbOC conjugate Matthew Lemus DO Work Phone: [facility] 1997 tetanus toxoid, reduced diphtheria toxoid, and acellular pertussis vaccine, adsorbed Matthew Lemus DO Work Phone: [facility] 1997 trivalent poliovirus vaccine, live, oral Matthew Lemus DO Work Phone: [facility] 1997 diphtheria, tetanus toxoids and acellular pertussis vaccine [facility] [place] [facility] diphtheria, tetanus toxoids and acellular pertussis vaccine, unspecified formulation Matthew Lemus DO Work Phone: [facility] 1997 DTaP, unspecified formulation Rishimaricel MARSHALL [facility] 1997 haemophilus influenz ae type b vaccine, conjugate unspecified formulation Matthew Lemus DO Work Phone: [facility] 1997 Hib, unspecified [facility] [place] [facility] Hib, unspecified formulation Rishimaricel MARSHALL [facility] 1997 poliovirus vaccine, inactivated [facility] [place] [facility] tetanus toxoid, reduced diphtheria toxoid, and acellular pertussis vaccine, adsorbed Matthew Lemus DO Work Phone: [facility] 1997 trivalent poliovirus vaccine, live, oral Matthew Lemus DO Work Phone: [facility] 1997 hepatitis B vaccine, adult dosage Matthew Lemus Work Phone: [facility] Work Phone: 1997 hepatitis B vaccine, pediatric or pediatric/adolescent dosage Rishi MARSHALL [facility] 1997 hepatitis B vaccine, unspecified formulation Dipakkumar Johnson [facility] 1997 hepatitis B vaccine, adult dosage Matthew Lemus Work Phone: [facility] Work Phone: 1997 hepatitis B vaccine, pediatric or pediatric/adolescent dosage Rishi MARSHALL [facility] 1997 hepatitis B vaccine, unspecified formulation Lisseth Johnson [facility] [place] Payers Date Payer Category Payer Medicaid [id number] 2015 Unknown BCBS BC[place] - [place] P PO xxxxxxxxxxxx 2015-Present [address] [place] [address] xxxxxxxxxxxx [id number] 1997 Unknown [id number] 2.16.840.1.005919.3.579.2.177 1997 Unknown [id number] 2.16.840.1.794097.3.579.2.177 1997 Unknown [id number] 2.16.840.1.321236.3.579.2.175 1997 Unknown [id number] 2.16.840.1.906768.3.579.2.593 1997 Unknown [id number] 2.16.840.1.430955.3.579.2.593 1997 Unknown [id number] 2.16.840.1.464665.3.579.2.593 1997 Unknown [id number] 2.16.840.1.395400.3.579.2.593 1997 Unknown [id number] 2.16.840.1.240410.3.579.2.593 1997 Unknown [id number] 2.16.840.1.316077.3.579.2.593 1997 Unknown [id number] 2.16.840.1.203629.3.579.2.593 1997 Unknown [id number] 2.16.840.1.445260.3.579.2.593 1997 Unknown [id number] 2.16.840.1.716266.3.579.2.593 1997 Unknown [id number] 2.16.840.1.305613.3.579.2.593 1997 Unknown [id number] 2.16.840.1.329886.3.579.2.593 1997 Unknown [id number] 2.16.840.1.750281.3.579.2.593 1997 Unknown [id number] 2.16.840.1.425098.3.579.2.593 1997 Unknown [id number] 2.16.840.1.731739.3.579.2.593 1997 Unknown [id number] 2.16.840.1.860629.3.579.2.593 1997 Unknown [id number] 2.16.840.1.191786.3.579.2.593 1997 Unknown [id number] 2.16.840.1.665772.3.579.2.593 1997 Unknown [id number] 2.16.840.1.730683.3.579.2.593 1997 Unknown [id number] 2.16.840.1.440540.3.579.2.593 1997 Unknown [id number] 2.16.840.1.134860.3.579.2.173 1997 Unknown [id number] 2.16.840.1.339046.3.579.2.173 1997 Unknown [id number] 2.16.840.1.870963.3.579.2.173 1997 Unknown [id number] 2.16.840.1.311908.3.579.2.727 1997 Unknown [id number] 2.16.840.1.235186.3.579.2.727 1997 Unknown [id number] 2.16.840.1.962993.3.579.2.727 1997 Unknown [id number] 2.16.840.1.803437.3.579.2.128 6 1997 Unknown [id number] 2.16.840.1.994747.3.579.2.125 9 1997 Unknown [id number] 2.16.840.1.947847.3.579.2.125 9 1997 Unknown [id number] 2.16.840.1.155708.3.579.2.125 9 1997 Unknown [id number] 2.16.840.1.096999.3.579.2.128 6 1959 Self-pay [id number] 1959 Unknown [id number] 1959 Unknown [id number] 2.16.840.1.736503.3.441 1959 Unknown [id number] Unknown [id number] .16840.1.141766.3.579.2.531 Unknown [id number] 216.840.1.305098.3.579.2.531 Unknown [id number] 2.16.840.1.595243.3.579.2.531 Unknown [id number] 2.16.840.1.775278.3.579.2.531 Social History Date Type Detail Facility Start: 02-06-2019 End: 05-19-2023 Tobacco smoking status DEIS Never smoker [place] Start: 02-06-2019 End: 04-26-2022 [facility] Start: 1995 Sex Assigned At Not on file [facility] Start: 07-31-2019 End: 10-05-2019 Alcohol intake Current non-drinker of alcohol (finding) [place] Exposure to SARS-CoV -2 (event) Unable to assess [place] Start: 03-03-2020 End: 11-10-2021 Tobacco use and exposure Never used [facility], [facility] Start: 03-03-2020 End: 07-07-2023 Alcohol intake Current drinker of alcohol (finding) [place] Start: 03-03-2020 Alcohol Comment occasional [facility] [place] Start: 10-01-2021 End: 06-30-2022 Exposure to SARS-CoV-2 (event) Not sure [place] Tobacco smoking status Never [facility]u [facility] Start: 04-03-2021 History SDOH Financial 5 [employer] Work Phone: Start: 04-03-2021 History SDOH Food Worry 1 [employer] Work Phone: Start: 04-03-2021 History 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 2 [employer] Work Phone: Start: *Tobacco [facility] Start: 1995 Sex Assigned At Female [facility] Tobacco smoking stat us DEIS Tobacco smoking consumption unknown [facility] Start: 11-10-2021 Tobacco smoking status NHIS Ex-smoker [facility] History of tobacco use Current smoker [facility] History of tobacco use Tobacco U se Types Packs/Day Years Used Date Smoking Tobacco: Former Vaping/E-cigarettes Smokeless Tobacco: Never [facility] Start: 04-26-2022 End: 07-07-2023 History of Social function [facility] Do you belong to any clubs or organizations such as nondenominational groups, unions, fraternal or athletic groups, or [...] 05-10-2023 Functional Status N/A [facility] 02-06-2023 Functional status Patient at [facility] Work Phone: Mental Status Date Assessment Result Facility 02-06-2023 Cognitive function Cognitive Sta tus Patient at Baseline [facility] Work Phone: Clinical Notes 09-04-2021 to 07-07-2023 Matthew Lemus, DO - 07/07/2023 10:30 AM EST Note Date & Type Note Facility 07-07-2023 History of Present illness Narrative IM PROGRESS NOTE Patient - Lulú Gaitan Age - 28 [facility] 1995 [id number] & PLAN 1. Bipolar 1 disorder [...] disorder and anxiety and [facility] [place] for evaluation and adjustment of her medications. [...] have CT scan and upper GI at [facility]. Both were termed normal except for changes related to her recent kidney stone and bladder manipulation. A review of systems was negative except for the following: General: sleep disturbance Psychiatric: anxiety, mood swings, and now seeing a new mental health provider (Nelly Pederson) out of [place]. Has recently had wholesale changes to her [...] Testing No results found. Matthew Lemus DO., [facility] Physicians Office: [phone] documented in this encounter [facility] 05-19-2023 History and physical note Note Date/Time May 19, 2023 1:38pm [place] [address] Gastroenterology H&P Signed Patient: Lulú Gaitan MR#: [id number] : 1995 Acct:[id number] Age/Sex: 28 / F Adm Date: 3 Loc: Room: Type: [facility] Attending Dr: Fany Ceballos MD Copies [...] <Electronically signed by Fany Ceballos MD> 05/19/231337 [facility] Work Phone: 1(881) 783-294612-21-2023 [facility]* Encounter Date Diagnosis Assessment Notes Treatment Notes Treatment Clinical Notes Apr, Abnormal abdominal C T scan (ICD-10 - R93.5) Apr, Pyelonephritis of left kidney (ICD-10 - N12) [employer] Other 12-12-2023 Hospital Discharge instructions Patient Education [...] Follow these instructions at home: Medicines Take trjv-nnc-mlflzan and prescription medicines only as told by [...] or the blood stops without treatment. Take eksc-sji-raiwamp and prescription medicines only as told by your health care provider. Drink enough fluid to keep your urine pale yellow. This information is not intended to replace advice given to you by your health care provider. Make sure you discuss any questions you have with your health care provider. Document Revised: 01/14/2021 Document Reviewed: 01/14/2021 [employer] Patient Education 2022 [email or web address]. Follow Up Care 05/06/2023 07:59:50 With:ROLANDO DEVLIN, Rishi Ghosh, URL Address: [facility] [address] , [place] [address]- When:Within 4 Month(s) Comments:w/PVR [facility] 11-29-2023 Evaluation note* Encounter Date Diagnosis Assessment Notes Treatment Notes Treatment Clinical Notes Mar, Irritable bowel syndrome with constipation (ICD-10 - K58.1) Mar, Delayed gastric emptying (ICD-10 - K30) Mar, Vomiting (ICD-10 - R11.10) [employer] Other 09-15-2023 Evaluation note* Encounter Date Diagnosis [...] no improvement in 2 to 3 days [employer] Other 09-10-2023 Hospital Discharge instructions Additional Instructions Important Contact Information You can call [facility] at [phone] any time day or night if you [...] Text Line (available 20/12) text 4HOPE to [phone] [facility] Hope Line (available 8 a.m. Midnight) call [phone] ([phone]) [facility] Work Phone: 1(438) 802-725209-09-2023 Progress note Author Karri Kamara [facility] February 05, 2023 12:00pm Note Date/Time February 05, 2023 12:00pm [facility] [address] [place] [address] Psychiatry Progress Note Signed Patient: Lulú Gaitan MR#: [id number] : 1995 Acct:[id number] Age/Sex: 27 / F Adm Date: 3 Loc: Room: [address] [place] [address] Type : ADM IN Attending Dr: Karri [...] explained Documented By: Karri Kamara MD 02/05/23 1157 Signed By: <Electronically signed by Karri Kamara MD> 02/05/23 1200 [facility] Work Phone: 1(168) 113-282209-08-2023 Progress note Author Karri Kamara [facility] February 04, 2023 1:43pm Note Date/Time February 04, 2023 1:44pm [facility] [address] [place] [address] Psychiatry Progress Note Signed Patient: Lulú Gaitan MR#: [id number] : 1995 Acct:[id number] Age/Sex: 27 / F Adm Date: 3 Loc: Room: [address] [place] [address] Type : ADM IN Attending Dr: Karri [...] signed by Karri Kamara MD> 02/04/23 1343 [facility] Work Phone: 1(943) 517-832509-07-2023 Miscellaneous Notes* Telephone Encounter - Viviana David [...] list full name of hospital or facility)? [facility] If the patient had a gastric emptying [...] G/J Tube?No Preferred phone number for contact: [phone] [facility] History and physical note Author Karri Kamara [facility] February 03, 2023 11:58am Note Date/Time February 03, 2023 11:58am [facility] [address] [place] [address] Psychiatry H&P Signed Patient: Lulú Gaitan MR#: [id number] : 1995 Acct:[id number] Age/Sex: 27 / F Adm Date: 3 Loc: Room: [address] [place] [address] Type: ADM IN Attending Dr: Karri Kamara [...] States she recently saw her psychiatrist at [facility] and was restarted on Latuda. 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 Nurse pal[pates pt's abdomen when pt feeling [...] at this time. documented in this encounterBON [facility] [employer] Phone: 1(650) 405-359402-02-2023 Hospital Discharge instructions* Discharge Instructions* Jenna Elliott RN - 07/01/2022 12:27 AM EST OUTPATIENT DISCHARGE Dr. Miguel Aguilera [facility] Dr. Katelynn Leslie [facility] [address] [facility] [address] [place] or Terrell Chyna Prakash [facility] [address] [place] [address] [place] [address] ACTIVITY LIMITATIONS: ( x )Up [...] AND DELIVERY . documented in this encounterBON [facility] Work Phone: 1(379) 972-244109-14-2022 History and physical note Author Tae Natarajan [facility] February 10, 2022 5:06pm Note Date/Time February 10, 2022 5:06pm [facility] [address] [place] [address] Vascular Surgery H&P Signed Patient: Lulú Gaitan MR#: [id number] : 1995 Acct:[id number] Age/Sex: 26 / F Adm Date: 2 Loc: Room: Type: [facility] Attending Dr: Tae Natarajan MD [...] mg PO DAILY 02/10/22 [History Confirmed 02/10/22] cewvysuybq-inqjrqkkteqed-sifidlbn 50 mg-300 mg-40 mg capsule (Fioricet) 1 [...] signed by MD Tae Natarajan> 02/10/22 1706 [facility] Work Phone: 1(843) 522-600208-29-2022 Evaluation note* Encounter Date Diagnosis Assessment Notes [...] ahead with arteriogram and venogram as requested. [employer] Other 05-15-2022 Hospital Discharge instructions* Instructions* Christine Vazquez PA-C - 10/11/2021 Take ibuprofen cmnf-aby-xmenakt 600 mg 3 times daily as needed for pain. Follow- up with your primary care provider and discuss additional testing if symptoms not improved. Return to the emergency room for any worsening symptoms. * Attachments The following attachments cannot be sent through Care Everywhere. * Pelvic Pain (Slovak) [facility] Work Phone: 1(384) 646-972305-03-2022 Hospital Discharge instructions Patient Education 09/29/2021 13:37:25 [...] Follow these instructions at home: Medicines Take vsmm-zyv-zztdtiu and prescription medicines only as told by [...] or the blood stops without treatment. Take yodm-tpd-ospqsma and prescription medicines only as told by your health care provider. Drink enough fluid to keep your urine clear or pale yellow. This information is not intended to replace advice given to you by your health care provider. Make sure you discuss any questions you have with your health care provider. Document Released: 05/16/2006 Document Revised: 10/10/2019 Document Reviewed: 06/18/2017 [employer] Patient Education 2019 [email or web address]. Follow Up Care 09/22/2021 14:13:42 With:ROLANDO DEVLIN, Rishi Ghosh, URL Address: [facility] [address] [place] [address]- Business (1) When: Unknown [facility] 04-08-2022 Hospital Discharge instructions Patient Education [...] including vitamins, herbs, eye drops, creams, and uplt-scv-wmpzoov medicines. Any problems you or family members [...] provider tells you to take them. ?Taking vzqt-tdz-gtntauy medicines, vitamins, herbs, and supplements. Follow instructions [...] Follow these instructions at home: Medicines Take kydc-dzn-sayltex and prescription medicines only as told by [...] 05/13/2001 Document Revised: 05/08/2019 Document Reviewed: 05/08/2019 [employer] Patient Education 2020 [email or web address]. Follow Up Care 08/07/2021 15:47:45 With:ROLANDO DEVLIN, Rishi Ghosh, URL Address: [address] [place] [address]- When: Unknown Comments:will schedule [facility]ysto [facility] Author Karri Kamara [facility] February 06, 2023 11:04am Note Date/Time February 06, 2023 11:04am [facility] [address] [place], [place] [address] Discharge Summary Signed Patient: Lulú Gaitan MR#: [id number] : 1995 Acct:[id number] Age/Sex: 27 / F Adm Date: 3 Loc: 1S Room: 5Z2721-[address]: Karri Kamara MD Copies to: MD Matthew Wyatt,DO~ Providers Date of Discharge: 02/06/23 Discharging Provider: Karri Kamara Primary Care Provider: Matthew Leums Discharge Diagnosis (1) Major depressive disorder, recurrent: [...] States she recently saw her psychiatrist at [facility] and was restarted on Latuda. 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 Midnight) call [phone] ([phone]) Stand Alone Forms: Work/School Release Form Prescriptions: [...] Follow Up: [facility] [Other] (fax:[phone]) [facility] [employer] Communication Line [Outside] Matthew Lemus DO [Primary Care Provider] - (Please contact for any medical needs or concerns) Documented By: Karri Kamara MD 02/06/23 1103 Signed By: <Electronically signed by Karri Kamara MD> 02/06/23 1104 [facility] Work Phone: Evaluation + Plan note No data available for this section [facility] evaluation + Plan note Future Appointments Appointment Date:02/05/2022 09:45:00 AM Scheduled Provider:Rishi MARSHALL MD Location:[facility] Appointment Type:URO Office Visit [facility] Evaluation + Plan note Future Appointments Appointment Date:09/27/2023 10:15:00 AM Scheduled Provider:Rishi MARSHALL MD Location:[facility] Appointment Type:URO Office Visit [facility] evaluation note* Diagnosis Lower abdominal pain- Primary Abdominal pain, other specified site documented in this encounter [employer] Work Phone: evaluation note* Diagnosis Onset Date Resolution Status Hematuria acute [facility] Work Phone: evaluation note* Diagnosis Hyperemesis- Primary Persistent vomiting Pelvic cramping Unspecified symptom associated with female genital organs documented in this encounter MARTHA RITCHIE [employer] Phone: evaluation note* Diagnosis Onset Date Resolution Status Bipolar 1 disorder acute Depression acute Major depressive disorder, recurrent acute Suicidal ideation acute [facility] Work Phone: evaluation noteNo assessment information available [facility] Work Phone: evaluation note* Diagnosis Bipolar 1 [...] History umbilical hernia repair Hospitalization History 1 [facility] 2020 Hospitalization History as a child for stomach p ain [facility] Other History general Narrative - Reported* Type Description Date Medical History migraine headache Medical History endometriosis Medical History PCOS Medical History borderline personality disorder Medical History bipolar Medical History anxiety Medical History chronic depression Surgical History laparoscopy x3 female Surgical History umbilical hernia repair Hospitalization History 1 [facility] 2020 Hospitalization History as a child for stomach p ain Hospitalization History LATUDA REACTION 1 [facility] 02/02/2023 [facility] trib[facility] Other Hospital Discharge instructions Additional Instructions Hold Metformin for 2 days. No heavy lifting of anything over 5 pounds. No pushing or pulling. No vigorous activity. Remove dressing in 24 hours.[facility] Work Phone: Hospital Discharge instructions Additional Instructions [...] problems. -Follow up with PCP. -Office number [phone]. [facility] Work Phone: InstructionsNot on filedocumented in this encounter [facility] No data available for this section [facility] Assessments Diagnosis Gross hematuria Urgency of urination Diagnosis Gross hematuria Urgency of urination Diagnosis Gross hematuria Diagnosis Acute frontal sinusitis, recurrence not specified Diagnosis Viral URI with cough Acute upper respiratory infections of unspecified site Diagnosis Intractable nausea and vomiting Persistent vomiting Diagnosis Dysuria Gross hematuria Advance Directives No Advanced Directives Records FoundDocuments on File Type Date Recorded 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 Go to [email or web address] and sign in to your rimidi account. Enter J454 in the Search Health Information box to learn more about Upper GI Endoscopy: What to Expect at Home. . 8089-6308 [employer]obile. Care instructions adapted under license by [employer]. This care instruction is for use with your licensed healthcare professional. If you have questions about a medical condition or this instruction, always ask your healthcare professional. [employer] disclaims any warranty or liability for your use of this information. Content Version: 9.9.827613; Last Revised: July 19, 2012 Upper GI [...] Where can you learn more? Go to [email or web address] and sign in to your rimidi account. Enter J454 in the Search Health Information box to learn more about Upper GI Endoscopy: What to Expect at Home. . 7797-5546 Vobile. Care instructions adapted under license by [employer]. This care instruction is for use with your licensed healthcare professional. If you have questions about a medical condition or this instruction, always ask your healthcare professional. [employer] disclaims any warranty or liability for your use of this information. Content Version: 9.9.129422; Last Revised: July 19, 2012 Upper GI [...] Where can you learn more? Go to [email or web address] and sign in to your rimidi account. Enter J454 in the Search Seelio Information box to learn more about Upper GI Endoscopy: What to Expect at Home. . 8020-5556 Vobile. Care instructions adapted under license by [employer]. This care instruction is for use with your licensed healthcare professional. If you have questions about a medical condition or this instruction, always ask your healthcare professional. [employer] disclaims any warranty or liability for your use of this information. Content Version: 9.9.671956; Last Revised: July 19, 2012 Upper GI [...] Where can you learn more? Go to [email or web address] and sign in to your rimidi account. Enter J454 in the [employer] Information box to learn more about Upper GI Endoscopy: What to Expect at Home. . Vobile. Care instructions adapted under license by [employer]. This care instruction is for use with your licensed healthcare professional. If you have questions about a medical condition or this instruction, always ask your healthcare professional. [employer] disclaims any warranty or liability for your use of this information. Content Version: 9.9.214745; Last Revised: July 19, 2012 Upper GI [...] Where can you learn more? Go to [email or web address] and sign in to your rimidi account. Enter J454 in the Search Health Information box to learn more about Upper GI Endoscopy: What to Expect at Home. . 3478-9137 Vobile. Care instructions adapted under license by [employer]. This care instruction is for use with your licensed healthcare professional. If you have questions about a medical condition or this instruction, always ask your healthcare professional. [employer] disclaims any warranty or liability for your use of this information. Content Version: 9.9.779820; Last Revised: July 19, 2012 Upper GI [...] Where can you learn more? Go to [email or web address] and sign in to your rimidi account. Enter J454 in the Search Health Information box to learn more about Upper GI Endoscopy: What to Expect at Home. . 9044-4062 Vobile. Care instructions adapted under license by [employer]. This care instruction is for use with your licensed healthcare professional. If you have questions about a medical condition or this instruction, always ask your healthcare professional. [employer] disclaims any warranty or liability for your use of this information. Content Version: 9.9.687828; Last Revised: July 19, 2012 Upper GI [...] the day after the test, use an zhzo-uqj-lupcixy spray to numb your throat. Follow-up care [...] Where can you learn more? Go to [email or web address] and sign in to your rimidi account. Enter J454 in the Search Health Information box to learn more about Upper GI Endoscopy: What to Expect at Home. If you do not have an account, please click on the Sign Up Now link. Current as of: January 07, 2019Content Version: 12.4 Vobile. Care instructions adapted under license by [employer]. If you have questions about a medical condition or this instruction, always ask your healthcare professional. [employer] disclaims any warranty or liability for your use of this information. documented in this encounter* Attachments The following attachments cannot be sent through Care Everywhere. * URI (Upper Respiratory Infection): Viral (Slovak) documented in this encounter Summary Purpose Family [...] SCAN W EJECTION FRACTION Toño Blanc MD [address] [place] [address] Chief Complaint and Reason for Visit Chief [...] To Contact Diagnoses Dysphagia DX DYSPHAGIA Procedures WY ESOPHAGOGASTRODUODENOSCOPY TRANSORAL DIAGNOSTIC EGD ESOPHAGOGASTRODUODENOSCOPY Toño Blanc MD [address] [place] [address] [facility] Reason Comments Cough pt states onset last week. PT states she is taking Prednisone and Keflex for a sinus infection Status Reason Specialty Diagnoses / Procedures Referred By Contact Referred To Contact Not Required - [facility] Diagnoses Nausea with vomiting, unspecified Procedures HC NM HEPATOBILIARY IMAGING W PHARM Toño Blanc MD [address] [place] [address] [facility] [address] [place] [address] Reason Comments Abdominal Cramping onset this am [...] section and content) DATE CREATED AUTHOR 10/15/2019 [facility] DATE CREATED AUTHOR AUTHOR'S ORGANIZ ATION 03/07/2020 [facility] DATE CREATED AUTHOR AUTHOR'S ORGANIZ ATION 07/27/2021 [facility] DATE CREATED AUTHOR AUTHOR'S ORGANIZ ATION 09/24/2022 [facility] DATE CREATED AUTHOR AUTHOR'S ORGANIZ ATION 02/12/2023 [facility] DATE CREATED AUTHOR AUTHOR'S ORGANIZ ATION 03/12/2023 [facility] DATE CREATED AUTHOR AUTHOR'S ORGANIZ ATION 05/27/2023 [facility] DATE CREATED AUTHOR AUTHOR'S ORGANIZ ATION 06/05/2023 [facility] DATE CREATED AUTHOR AUTHOR'S ORGANIZ ATION 07/04/2023 [facility] d[facility] DATE CREATED AUTHOR AUTHOR'S ORGANIZ ATION 07/08/2023 [facility] DATE CREATED AUTHOR AUTHOR'S ORGANIZ ATION 07/11/2023 [facility] Scheduled Active and Recently Administ [...] Kamara MD Admit Provider, Attending Provider Active 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 Specialty Start Date End Date Matthew Lemus [address] [place] [address] PCP - General Internal Medicine 10/11/21 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 Specialty Start Date End Date Matthew Lemus [address] [place] [address] PCP - General Internal Medicine 10/11/21 Team Status: Inactive Member Role Status Dates Matthew DO Nancy Primary Care Provider Active Tae Natarajan MD Attending Provider Active 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 Specialty Start Date End Date Bridgette Lewis MD [address] [place] [address] PCP - General Internal Medicine 06/30/22 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 Specialty Start Date End Date Richard Agustin Segundocarmencita [address] [place] [phone] PCP - General 01/27/04 Team Status: Inactive Member Role Status Dates Matthew Lemus DO Primary Care Provider Active Fany Ceballos MD Attending Provider Active 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 [facility] [employer] [facility]. provides no warranty or guarantee of the accuracy or completeness of information in this document.
[2023-07-29 09:34] LABS: Basophils Absolute Auto 0.1 10^3/uL (0.0-0.1); Basophils Percent Auto 0.8 % (0.2-2.0); Eosinophils Absolute Auto 0.1 10^3/uL (0.0-0.7); Eosinophils Percent Auto 1.6 % (0.9-7.0); Hematocrit 41.7 % (36.0-48.0); Hemoglobin 13.7 g/dL (12.0-16.0); Immature Granulocytes Abs Auto 0.04 10^3/uL (0.00-0.03); Immature Granulocytes Pct Auto 0.7 % (0.0-0.5); Lymphocytes Absolute Auto 2.1 10^3/uL (1.2-3.8); Lymphocytes Percent Auto 33.7 % (20.5-60.0); Mean Corpuscular HGB Conc 32.9 g/dL (29.9-35.2); Mean Corpuscular Hemoglobin 29.8 pg (26.7-34.0); Mean Corpuscular Volume 90.7 fL (81.0-99.0); Mean Platelet Volume 10.2 fL (9.5-13.5); Monocytes Absolute Auto 0.6 10^3/uL (0.3-0.8); Monocytes Percent Auto 9.8 % (1.7-12.0); Neutrophils Absolute Auto 3.3 10^3/uL (1.4-6.5); Neutrophils Percent Auto 53.4 % (43.0-75.0); Platelet Count 299 10^3/uL (150-450); Red Cell Distribution Width 12.6 % (11.0-15.0); White Blood Count 6.1 10^3/uL (4.0-11.0)
--- NOTE | 2023-07-29 10:14 | PC.NURSE ---
2 attempts by other RN
[2023-07-29] MEDS: LACTATED RINGER'S SOLUTION 1,000 ML 50 ML IV (10:15)
[2023-07-29 10:22] LABS: HCG Quantitative <1 mIU/mL
[2023-07-29] MEDS: SCOPOLAMINE 1 MG/3 DAYS TRANSDERM PATCH 1 PATCH TD (10:38)
--- NOTE | 2023-07-29 12:29 | PM.ONB ---
Brief Operative Note Date of procedure: 07/29/23 Pre-op diagnosis: pelvic pain Post-op diagnosis: other (rt ovarian cyst) Procedure: NAME OF PROCEDURE: [diagnostic laparoscopy with rt ovarian cystotomy] findings:rt ovarian cyst PROCEDURE: The patient was taken back to the Operating Room where she was placed in dorsal lithotomy position after given general anesthesia. The patient was prepped and draped in normal sterile fashion. A sponge stick was placed into the patient's vagina. Attention was turned to the patient's abdomen, where a small umbilical incision was made. The fascia was tented using Prosper clamps and the fascia was entered sharply. Confirmation of intraabdominal placement of the 10 mm port was confirmed under direct visualization using a laparoscope. The patient's abdomen was then insufflated using CO2 gas with approximately 4 liters. A second port was placed left laterally, this was done under direct visualization with a 5 mm port. Survey of the patient's abdomen demonstrated normal liver and gallbladder. Survey of the patient's pelvic anatomy demonstrated normal appearing rt and lt ovary and tubes as well as normal appearing uterus. No endometrial implants could be noted, no evidence of any pelvic disease was seen, normal appearing pelvic cavity Rt ovarian cystotomy performed using monopolar scissors. All instruments were removed from the patient's abdomen. The patient's abdomen was deinsufflated of CO2 gas. The patient tolerated the procedure well. Sponge stick was removed from the patient's vagina. The patient's infraumbilical fascia was closed using #0 Vicryl on a GI needle. The patient's skin was closed laterally and infraumbilically using 4-0 Vicryl. The patient tolerated the procedure well. Sponge, lap and needle counts were correct x 2. The patient was taken to Recovery Room in stable condition. Surgeon: Ron Valenzuela Customer Success Associate: Zenia King Estimated blood loss (mL): 5 Pathology: none sent Condition: stable Disposition: PACU Urinary Catheter Management Urinary Catheter Management Urethral: Cath placed during this visit: no
[2023-07-29] MEDS: HYDROMORPHONE HCL 0.5 MG/0.5 ML SYRINGE IV (13:01)
[2023-07-29] MEDS: LACTATED RINGER'S SOLUTION 1,000 ML 150 ML IV (13:04)
[2023-07-29] MEDS: HYDROCODONE/ACET 5-325 MG TABLET 1 TAB PO (14:12)
--- NOTE | 2023-07-29 14:45 | PC.NURSE ---
pt voids at 1435 without difficulty,ambulates with minimal assistance.
== END 2023-07-29 14:49 | disposition home or self-care (01) ==
PROVIDERS: PCP Internal Medicine; Visit Provider Obstetrics & Gynecology
PROC: (CPT 840; principal; 2023-07-29 10:40)
DX: R10.2 Pelvic and perineal pain (principal); N94.89 Other specified conditions associated with female genital organs and menstrual cycle; N83.201 Unspecified ovarian cyst, right side; F41.9 Anxiety disorder, unspecified; J45.909 Unspecified asthma, uncomplicated; F31.9 Bipolar disorder, unspecified; N80.9 Endometriosis, unspecified; E66.9 Obesity, unspecified; Z68.25 Body mass index [BMI] 25.0-25.9, adult
CPT/HCPCS: 49322; 36415; 84702; 85025; J1094; J1170; J2704

== ENCOUNTER 2023-09-15 09:14 | Outpatient (OUT) | payer OTHER, SELFPAY ==
--- NOTE | 2023-09-15 09:16 | US_ITS ---
[address] [address] Patient Name: LULÚ CAICEDO MRN: [id number] date: 1995 Sex: F Assigned Patient Location: [facility] Current Patient Location: [facility] Accession/Order Number: [id number] Exam Date: 09/15/2023 09:16 Report Date: 09/15/2023 10:18 At the request of: AUDELIA HOBBS Procedure: US pelvis w/ transvaginal EXAMINATION: US pelvis w/ transvaginal HISTORY: PELVIC PAIN , bleeding for 2 months COMPARISON: Ultrasound pelvis 06/21/2023 TECHNIQUE: Transabdominal and/or transvaginal sonographic examination was performed as indicated by examination type. FINDINGS: UTERUS: Normal size and appearance. IUD within endometrial cavity. Uterus size: 7.3 x 4.0 x 5.5 cm ENDOMETRIUM: Normal homogeneous appearance. Endometrial thickness: 4 mm RIGHT OVARY: Contains a 2.1 cm benign-appearing cyst. Duplex Doppler demonstrates normal waveform and flow; resistive index 0.6. Ovary size: 3.1 x 1.9 x 2.8 cm LEFT OVARY: Normal size and appearance. Duplex Doppler demonstrates normal waveform and flow; resistive index 0.6. Ovary size: 1.8 x 1.0 x 2.1 cm CUL-DE-SAC: Unremarkable. No significant free fluid. BLADDER: Unremarkable. OTHER: None. US/US pelvis w/ transvaginal IMPRESSION: 1. Right ovary contains a 2.1 cm benign-appearing cyst of questionable clinical significance. 2. IUD within endometrial cavity; no suspicious findings. 3. Normal endometrium and uterus. Electronically authenticated by: KAROL SIDDIQUI Date: 09/15/2023 10:18
== END 2023-09-15 09:15 | disposition home or self-care (01) ==
LOC: NOMS 09:14
PROVIDERS: PCP Internal Medicine; Visit Provider Physician Assistant
DX: R10.2 Pelvic and perineal pain (principal); N83.201 Unspecified ovarian cyst, right side; Z97.5 Presence of (intrauterine) contraceptive device
CPT/HCPCS: 76830; 76856

== ENCOUNTER 2023-11-05 12:56 | Outpatient (OUT) | payer OTHER, SELFPAY ==
--- NOTE | 2023-11-05 | US_ITS ---
The [address] [address] Patient Name: LULÚ CAICEDO MRN: [id number] date: 1995 Sex: F Assigned Patient Location: Current Patient Location: Accession/Order Number: [id number] Exam Date: 11/05/2023 12:59 Report Date: 11/06/2023 02:51 At the request of: CASEY DAVIDSON Procedure: US pelvis w/ transvaginal EXAM: US pelvis w/ transvaginal HISTORY: Pelvic pain R10.2 COMPARISON: Pelvic ultrasound examination dated 09/15/2023. TECHNIQUE: Real time pelvic ultrasound examination was performed using Duplex Doppler by a transabdominal approach. A transvaginal examination was performed for better evaluation of the ovaries. FINDINGS: The uterus is normal in size and echogenicity measuring 7.6 cm in length. No focal myometrial lesions are seen. The endometrium is within normal limits with the stripe measuring up to 0.4 cm in thickness. An IUD is in place. The right ovary measures 3.2 x 1.7 x 1.7 cm, and the left ovary measures 2.3 x 1.9 x 1.6 cm. Blood flow is seen in both ovaries. There is no significant free fluid. US/US pelvis w/ transvaginal IMPRESSION: 1. An IUD is in place. 2. The uterus and ovaries appear within normal limits. Electronically authenticated by: Jeffrey GONZALEZ Date: 11/06/2023 02:51
--- OUTSIDE RECORDS SUMMARY | 2023-11-05 13:00 | XMS_ITS | CCD ---
Author Organization [facility] Informat ion Partnership [facility] Care Team Providers Care Garage Door Installer Name Role Phone Lisseth Johnson Primary Care Provider TOÑO BLANC Admitting Unavailable TOÑO BLANC Attending Unavailable LISSETH JOHNSON Primary Care Unavailable TOÑO BLANC Referring Unavailable LISSETH JOHNSON Primary Care Unavailable Lisseth Johnson Primary Care Provider BRIANA RUBIO Referring Unavailable LISSETH JOHNSON Primary Care Unavailable MATTHEW LEMUS Primary Care Physician [phone] Matthew Lemus Primary Care Provider [phone] Unavailable Primary Care Physician Unavailab le Lisa Primary Care Physician Unavailab le Unavailable Primary Care Physician Unavailab Bridgette Bennett Primary Care Physician Julianava Bridgette Gardner Unavailable Unavailable Tae Natarajan Unavailable Bridgette Lewis Primary Care Physician Unava ilBridgette Trimble Primary Care Physician Unava ilKaleigh Stewart Primary Care Physician DO Matthew Arango Primary Care Provider [phone] MD Tae Natarajan Attending Provider Kaleigh Guevara Primary Care Physician Bridgette Medina Primary Care Physician Unava ilMaricel Canela Primary Care Physician Unavailab le Maricel Stafford Primary Care Physician Unavailab le Bridgette Lewis Primary Care Physician Unava ilBridgette Trimble Primary Care Physician Unava ilBridgette Trimble Primary Care Physician Unava ilBridgette Trimble MD Primary Care Provider [phone] DR MATTHEW LEMUS Primary Care Unavailable LETY [...] Unavailabl e LUPIS ., ERNESTINE Consulting Unavailable MIRLANDE, GIN Consulting Unavailable NAIMA, CHUY Admitting Unavailable NAIMA, CHUY Attending Unavailable LETY ., DR PEÑA Consulting Unavailable MISC, DR PADRON Primary Care Unavailable CHUY MCNAMARA Consulting Unavailable KARASIK ., DR ANGELES Consulting Unavailabl e KARASIK ., DR ANGELES Attending Unavailabl e KARASIK ., DR ANGELES Admitting Unavailabl e MISC, DR APDRON Primary Care Unavailable LETY ., DR PEÑA [...] Attending Unavailable LUPIS ., ERNESTINE Consulting Unavailable YUHAS, DR CASTRO Primary Care Unavailable LETY ., DR PEÑA Admitting Unavailable LETY ., DR PEÑA Attending Unavailable LETY ., DR PEÑA Consulting Unavailable ZIEBER, DR KAROL Ghosh Consulting Unavailable YUHAS, DR CASTRO Primary Care Unavailable LETY ., DR PEÑA Attending Unavailable LETY ., DR PEÑA Consulting Unavailable LETY ., DR PEÑA Admitting Unavailable FABY ., AUDELIA Consulting Unavailable MARIAH, DR CASTRO Primary Care Unavailable FABY ., AUDELIA Admitting Unavailable FABY ., AUDELIA Attending Unavailable YUUZIEL, DR CASTRO Primary Care Unavailable PAY ., DR THURMAN Consulting Unavailable JEFERSON, DR CASTRO Attending Unavailable JEFERSON, DR CASTRO Admitting Unavailable GRECHNY ., WM CORREA Consulting UnavailISIDRO Manrique Consulting Unavailable GOVIND JOHNSTON Consulting Unavailable Agustin Ramos Primary Care Provider DO Matthew Lemus Primary Care Provider [phone] MD Matthew Leslie Emergency Provider MD Asad Karri Admit Provider MD Karri Kamara Attending Provider [phone] Sarah Anderson Unavailable CASEY DAVIDSON Referring Unavailable BRIDGETTE LEWIS Primary Care Unavailable BRIDGETTE LEWIS Primary Care Unavailable DEREJE VALERIO Admitting Unavailable DEREJE VALERIO Attending Unavailable VINOD CLARK Attending Unavailable BRIDGETTE LEWIS Primary Care Unavailable Fany Ceballos Unavailable DO Matthew Lemus Primary Care Provider [phone] Asaad, MD Imad Attending Provider JORGE LAMAS Attending Unavailable MATTHEW LEMUS Referring Unavailable MATTHEW LEMUS Primary Care Unavailable Matthew Lemus DO Primary Care Provider Asaad, Imad Admitting Unavailable Asaad, Imad Attending Unavailable Matthew Lemus Primary Care Unavailable Jenni, Casper Admitting Unavailab le Jenni, Casper Attending Unavailab le Mariah Matthew Primary Care Unavailable Asad, Karri Admitting Unavailable Asad, Karri Attending Unavailable Mariah Matthew Primary Care Unavailable Asaad, Imad Admitting Unavailable Asaad, Imad Attending Unavailable Matthew Lemus Primary Care Unavailable MARIAH MATTHEW Mendiola Attending Unavailable MATTHEW LEMUS Referring Unavailable MATTHEW LEMUS Primary Care Unavailable LETY, CASEY Attending Unavailable LETY, CASEY Attending Unavailable LETY, CASEY Attending Unavailable LETY, CASEY Attending Unavailable AUDELIA HOBBS Attending Unavailable LETY, CASEY Attending Unavailable DEBBIE BRIDGETTE Primary Care Unavailable MARSHALL, Rishi R Attending Unavailable MARSHALL, Rishi R Attending Unavailable MARSHALL, Rishi R Attending Unavailable MARSHALL, Rishi R Attending Unavailable DEBBIE, [place] Primary Care Unavailable Allergies Allergy Classification Reported Allergen(s) Allergy Type Date of Onset Reaction(s) Facility Bee/Wasp/Ant Venom (1 source) Bee/Wasp/Ant venom; Translations: [Bee Stings] Substance Allergy [facility] Repository Macrolides (antibiotic) (2 sources) Azithromycin; Translations: [azithromycin] Drug Allergy [facility] Repository Pollen (1 source) Bee pollen; Translations: [bee pollen] Substance Allergy [facility] Repository (14 sources) bee venom Propensity to adverse reactions to drug 5 [place], [place] (16 sources) Erythromycin; Translations: [ERYTHROMYCIN] Drug Allergy 5 Itching, Dermatitis, Rash, Other (See Comments), pain [place], [place] (20 sources) Azithromycin; Translations: [azithromycin] Drug Allergy 9 Unknown (qualifier value), Swelling, Dermatitis, Rash, pain [facility] (4 sources) Bee pollen; Translations: [bee pollen] Drug Allergy Edema (finding) [facility] (4 sources) Bee/Wasp/Ant venom Drug allergy Unknown (qualifier value) [facility] (14 sources) lamoTRIgine; Translations: [Lamictal] Drug Allergy [facility] (12 sources) lamoTRIgine; Translations: [LAMOTRIGINE] Drug Allergy 2 Swelling, Rash [facility] (1 source) Azithromycin Drug Allergy [facility] Repository (2 sources) bee venom Drug allergy (disorder) [facility] Repository (1 source) lamoTRIgine Drug Allergy [facility] Repository (7 sources) lurasidone; Translations: [LURASIDONE] Drug Allergy 3 Other (See Comments) [facility] (2 sources) BEE VENOM PROTEIN (HONEY BEE); Translations: [BEE VENOM PROTEIN (HONEY BEE)] Propensity to adverse reactions to drug (disorder) 5 [facility] Repository (1 source) Azithromycin Drug Allergy 3 [facility] Repository (1 source) lamoTRIgine Drug Allergy 3 [facility] Repository (1 source) lurasidone Drug Allergy 3 [facility] Repository Medications Current Medications Medication Drug [...] Albuterol (Eqv-ProAir HFA) 90 mcg/inh inhalation aerosol (4 sources) Start: 09-03-2021 take 1 puff(s) by [...] tablet Start: 09-03-2021 End: 07-07-2023 take 1 mg by mouth twice daily busPIRone 10 mg Tab mg tab(s), Oral, BID, Refills(s) 0 Start Date: 09/03/21 Status: Ordered Start: 01-08-2021 End: 02-02-2023 take 10 mg [...] daily as needed for Itching 0 Active levoFLOXacin 500 mg oral tablet (1 source) Quinolone Antimicrobial Start: 05-25-2023 take 1 tablet by mouth every twenty-four hours Levaquin 500 mg Tab 500 mg = 1 tab(s), Oral, q24hr, # 21 tab(s), Refills(s) 0, Pharmacy: [facility]/pharmacy #[id number], 165, cm, 05/10/23 11:13:00 EST, Height/Length Dosing, 79, kg, 05/10/23 11:13:00 EST, Weight Dosing Start Date: 05/25/23 Status: Ordered 24 hr levomilnacipran 20 mg extended release [...] 2023 11:00pm May 18, 2023 1:58pm levonorgestrel 0.461412 mg/hr intrauterine system (1 source) Progestin, Progestin-containing [...] Ordered Start: 11-28-2018 End: 02-02-2023 take 1 mg by mouth once daily Pantoprazole [address] Ta b mg tab(s), Oral, Daily, Refills(s) 0 Start Date: 09/03/21 Status: Ordered Phentermine (7 sources) Sympathomimetic Amine Anorectic Start: 09-04-2021 take 1 mg by mouth once daily Adipex-P mg, Oral, Daily, Refills(s) 0 Start Date: 09/04/21 Status: Ordered take 1 capsule by [facility] once daily in the morning phentermine [...] Active tamsulosin hydrochloride 0.4 mg oral capsule (2 sources) alpha-Adrenergic Jade Start: 3 take 1 capsule by mouth once daily Flomax 0.4 mg Cap 0.4 mg = 1 cap(s), Oral, Daily, # 30 cap(s), Refills(s) 0, Pharmacy: [facility]/pharmacy #[id number], 165, cm, 12/17/21 8:42:00 EDT, Height/Length Dosing, 79, kg, 12/17/21 8:42:00 EDT, Weight Dosing Start Date: 04/28/23 Status: Ordered Vitamin D (4 sources) Start: 2 Vitamin D International_Unit, Oral, qWeek, Refills(s) 0 Start Date: 09/04/21 Status: Ordered vortioxetine 5 mg oral tablet (4 sources) Start: 2 take 1 mg by [...] 1 capsule by mouth every four hours Gpogqzflbn-Fylnbdiieeaan-Nguy (Fioricet) 50-300-40 mg Capsule Discontinued 1 CAP [...] IVPB (mini-bag) ciprofloxacin 500 mg oral tablet (4 sources) Quinolone Antimicrobial Start: 05-06-2023 take 1 tablet by mouth once daily Cipro 500 mg Tab 500 mg = 1 tab(s), Oral, Daily, Take 1 tablet the day before the procedure and 1 tablet after the procedure, # 2 tab(s), Refills(s) 0, Pharmacy: [facility]/pharmacy #[id number], 165, cm, 12/17/21 8:42:00 EDT, Height/Length [...] procedure., # 2 cap(s), Refills(s) 0, Pharmacy: [id number], 165, cm, 09/04/21 9:50:00 EDT, Height/Length Dosing, 79.1, kg, 09/04/21 9:50:00 EDT,... Start Date: 09/04/21 Status: Ordered doxylamine succinate 25 mg oral tablet (8 sources) take 1 tablet by mouth once daily as needed Unisom (doxylamine) 25 mg tablet take 1 tablet by oral route daily as needed fluconazole 150 mg oral tablet (12 sources) Azole Antifungal Start: 04-28-2023 fluconazole 150 mg Tab 300 mg = 2 tab(s), Oral, Once, take 1 tab PO. may repeat dose in 72 hr if still symptomatic., # 2 tab(s), Refills(s) 0, Pharmacy: [facility]/pharmacy #[id number], 165, cm, 12/17/21 8:42:00 EDT, Height/Length [...] Start: 01-19-2022 take 1 tablet by marion four times daily as needed ondansetron oral tablet,disintegrating 4 mg 01/19/2022 dissolve 1 tablet by oral route 4 times a day as needed Start: 10-11-2021 End: 10-11-2021 ondansetron (ZOFRAN) injecti on 4 mg Start: 10-11-2021 End: 10-11-2021 ondansetron (ZOFRAN) injecti on 4 mg Start: 04-03-2021 take 1 tablet by marion once daily as needed for nausea ondansetron (ZOFRAN) 4 MG tablet Take 1 tablet by mouth daily as needed for Nausea or Vomiting 30 tablet 2 04/03/2021 Active Start: 10-05-2019 End: 10-05-2019 ondansetron (ZOFRAN) injecti on 4 mg Start: 07-31-2019 take 1 tablet by marion once daily as needed for nausea ondansetron [...] 2022 1:22pm take 1 tablet by marion once daily in the morning paliperidone (INVEGA) [...] Start: 11-10-2016 take 2 tablets by mo akh once daily traZODone (DESYREL) 50 MG tablet Take 100 mg by mouth nightly 0 11/10/2016 Active Start: 11-10-2016 traZODone (KAMARI YREL) 50 MG tablet Take 25 mg by mouth nightly 0 11/10/2016 Active Start: 11-10-2016 take 1 tablet by marion th at bedtime traZODone (DESYREL) 50 MG tablet take 1 tablet by mouth at bedtime 0 11/10/2016 Active take 0.5 tablet by m out once daily at bedtime trazodone 150 mg tablet take one-half tablet (75 mg) by oral route once daily at bedtime ziprasidone 60 mg oral capsule (10 sources) Atypical Antipsychotic Start: 06-02-2023 End: 07-07-2023 take 1 capsule by mouth once daily at dinner ziprasidone (GEODON) 60 mg capsule Indications: Bipolar 1 disorder ([facility]) Take 1 capsule (60 mg total) [...] and unspecified hyperlipidemia] Onset: 02-09-2022 Chronic Endometriosis (19 sources) Endometriosis (clinical); Translations: [Endometriosis, unspecified] Onset: 02-25-2021 09-03-2021 Chronic Genitourinary symptoms and ill-defined conditions (6 sources) Urge incontinence; Translations: [Urge incontinence of [...] 06-17-2022 Episodic Other aftercare (1 source) Other terminal worker (current) drug therapy; Translations: [OTH BODY JOINER CURRENT DRUG THERAPY] Onset: 09-20-2022 Episodic Other [...] injuries and conditions due to external causes (3 sources) Foreign body in bladder; Translations: [Foreign [...] 07-24-2022 Episodic Schizophrenia and other psychotic disorders (4 sources) Schizophrenia 09-03-2021 Chronic Unclassified (1 source) CONTACT W/AND (SUSP) EXPOS COVID-19; Translations: [CONTACT W/AND (SUSP) EXPOS COVID-19] Onset: 05-28-2022 Unclassified (1 source) abd recheck Onset: 07-07-2023 Unclassified (1 source) Thyroid Problem Onset: 07-07-2023 Urinary tract infections (6 sources) Cystitis; Translations: [Cystitis, unspecified without hematuria] Onset: 09-04-2021 Episodic Past or Other Problems Problem Classification Problem Date Documented Da te Episodic/Chronic Cardiac dysrhythmias (20 sources) Tachycardia; Translations: [Tachycardia, unspecified] Onset: 02-09-2022 Episodic Fluid and electrolyte disorders (7 sources) Dehydration; Translations: [DEHYDRATION] Onset: 06-18-2022 Episodic Joint disorders and dislocations; trauma-related (1 [...] CT Reporton 05-25-2023 RAD - CT Report [id number] #1.00TIFF Normal [facility] HCG ( test) Jacquelyn d Ql (U)Ordered By: Fany Ceballos on 05-19-2023 HCG ( test) Ql (U) Negative [facility] HCG,Urineon 05-19-2023 Beta HCG ( test) Ql (U) Negative Normal [facility] Comment on above: Result Comment: PERF ORMED BY: [address] [place] [id number] PATHOLOGIST NUTRITION AIDE MOISES VELASCO M.D. Performed By: #### U HCG #### [place] [id number] [facility] 05-19-2023 L Specimen: [id number] Received: 05/20/23 Status: RUDY Dover Num: [id number] Spec Type: Surgical Subm Dr: Fany Ceballos MD Tissues: A Duodenum - Biopsy (DUODENAL BX) B Esophagus Biopsy (ESOPHAGUS BX) Procedures: KATELYNN/Demetria, Mary Anne/Micro L4/2 Age/ Patient Sex Location Account Attending Physician Lulú Gaitan 28/F [id number] Fany Ceballos MD SPEC NUM: [id number] RECD: 05/20/23 STATUS: URDY DOVER NUM: [id number] PHILIP: 05/19/23- SUBM DR: Fany Ceballos MD ENTERED: 05/20/[address] [facility] [address]: SPEC TYPE: Surgical DEPT: S ORDERED: [...] submitted in one cassette labeled B1. Specimen: [id number] Received: 05/20/23 Status: RUDY Danyelle Num: [id number] Spec Type: Surgical Subm Dr: Fany Ceballos MD Tissues: A Duodenum - Biopsy (DUODENAL BX) B Esophagus Biopsy (ESOPHAGUS BX) Procedures: HE/4, Gross/Micro L4/2 Patient: Lulú Gaitan [id number] (Continued) Specimen: [id number] Received: 05/20/23 (Continued) Signed (signature on file) Cielo Trimble MD 05/24/232300 Specimen: [id number] Received: 05/20/23 Status: RUDY [place] Num: [id number] Spec Type: Surgical Subm Dr: Fany Ceballos MD Tissues: A Duodenum - Biopsy (DUODENAL BX) B Esophagus Biopsy (ESOPHAGUS BX) Procedures: KATELYNN/Demetria, Gross/Jaren L4/2 Patient: Lulú Gaitan [id number] (Continued) Specimen: [id number] Received: 05/20/23 (Continued) Microscopic Description A. Two H E slides reviewed. The microscopic examination confirms the diagnosis. B. Two H E slides reviewed. The microscopic examination confirms the diagnosis. CPT Codes 67341q7 Specimen: [id number] Received: 05/20/23 Status: RUDY [place] Num: [id number] Spec Type: Surgical Subm Dr: Fany Ceballos MD Tissues: A Duodenum - Biopsy (DUODENAL BX) B Esophagus Biopsy (ESOPHAGUS BX) Procedures: HE/4, Gross/Micro L4/2 Patient: Lulú Gaitan [id number] (Continued) Signed (signature on file) Cielo Trimble MD 05/24/[address] [facility] [address] abdomen pelvis w [facility] CT abdomen pelvis w [facility] [place] [address] CT Scan Report Signed Patient: Lulú Gaitan MR#: [id number] 4 : 1995 Acct:[id number] Age/Sex: 28 / F ADM Date: 05/12/23 Loc: CT Room: Type: [facility] Attending Dr: Fany Ceballos MD Copies to: [...] Pham Jr., D.O.05/12/2023 10:29 AM Dictation Location: [place] [address] Transcribed By: [facility] 05/12/23 1029 Dictated By: Samy Pham Jr, DO 05/12/23 1023 Signed By: 05/12/23 1029 [facility] Consent for Procedure/Surger [facility] 05-11-2023 Consent for Procedure/Surgery [id number] 6#1.00TIFF [facility] Ambulatory Visit Summaryon 1 07-11-2022 Ambulatory [...] DEVLIN, Rishi Ghosh [facility] Education[facility] 05-10-20 Patient Education Urology [...] these instructions at home: Medicines ? Take yqgu-tna-mqngvhj and prescription medicines only as told by [...] the blood stops without treatment. ? Take tubk-ece-ytftgzd and prescription medicines only as told by your health care provider. ? Drink enough fluid to keep your urine pale yellow. This information is not intended to replace advice given to you by your health care provider. Make sure you discuss any questions you have with your health care provider. Document Revised: 01/14/2021 Document Reviewed: 01/14/2021 [employer] Patient Education ? 2022 [employer] [facility] Urology Office/Clinic Noteon 05-10-2023 Urology Office/Clinic [...] Bactrim x 3 days empirically. went to [facility] next day bc blood persisted. CT [...] months [facility] [address], [place] [address]- Additional Instructions: w/PVR Patient Education Hematuria, Adult I, Johana De Jesus , personally scribed for Dr. Marshall on 05/10/2023 11:52:58. . Portions of this record may have been created with voice recognition artificial intelligence software, specifically [employer], [employer] and or [employer]. Substitutions may have occurred due to the [...] Daily busPIRon (more content not included)... Normal [facility] Comment on above: Result Comment: Elec tronically Signed By: Rishi MARSHALL MD\.br\Date and Time Signed: 05/10/23 11:55 EST\.br\Electronically Co-Signed By: Johana De Jesus.br\Date and Time Co-Signed: 05/10/23 11:53 EST RAD - MISCon 04-26-2023 RAD - MISC [id number]# 1.00TIFF [facility] Lab Reportson 04-15-2023 Lab Reports [id number]# 1.00TIFF [facility] Operative Reporton Operative Report [id number] #1.00TIFF [facility] Lab Reportson 04-08-2023 Lab Reports [id number] #1.00TIFF [facility] Insurance Correspondenceon 1 05-30-2022 Insurance Correspondence [id number] 4#1.00TIFF [facility] Consent for Procedure/Surger yon 03-24-2023 Consent for Procedure/Surgery [id number]#1.00TIFF [facility] CT ABDOMEN PELVIS W IV CONTR [...] tumor, lymphadenopathy or abscess. Interpreted by: Jennie eHrnández MD Signed by: Jennie Hernández MD 03/11/23 Final result Normal [facility] Cult,Urineon 03-11-2023 Cult,Urine Specimen Description .CLEAN CATCH URINE Culture NO SIGNIFICANT GROWTH Report Status FINAL 03/11/2023 Normal [facility] Comment on above: Performed By: #### U RC #### [facility] [address] [place] [address] Statistician Applied: Omar Segundo MD [facility] [address] [place] [address] [place] [address] Statistician Applied: Cholo Alicea MD CBC with Diffon 03-10-2023 Abs. Basophil 0.05 k/uL Normal 0.00-0.20 [facility] Comment on above: Performed By: #### C DP, CP, CK #### [address] [place] [address] Statistician Applied: Cholo Alicea MD Abs.Imm.Granulocyte <0.03 Normal 0.00-0.30 [facility] Comment on above: Performed By: #### C DP, CP, CK #### [address] [place] [address] Statistician Applied: Cholo Alicea MD Abs.Neutrophil (Seg) 3.36 k/uL Normal 1.50-8.10 [facility] Comment on above: Performed By: #### C ANTONIA LIU, CK #### [address] [place], [facility] Statistician Applied: Cholo Alicea MD Basophils/100 WBC (Bld) 1 % Normal 0-2 [facility] Comment on above: Performed By: #### C ALEXA CP, CK #### [address] [place], [place] [address] Statistician Applied: Cholo Alicea MD Eosinophils (Bld) [#/Vol] 0.05 10*3/uL Normal 0.00-0.44 [facility] Comment on above: Performed By: #### C ANTONIA LIU, CK #### [address] [place], [place] [address] Statistician Applied: Cholo Alicea MD Eosinophils/100 WBC (Bld) 1 % Normal 1-4 [facility] Comment on above: Performed By: #### C ANTONIA LIU, CK #### [address] [place], [facility] Statistician Applied: Cholo Alicea MD Erythrocyte distribution width (RBC) [Ratio] 11.9 % Normal 11.8-14.4 [facility] Comment on above: Performed By: #### C ALEXA CP, CK #### [address] [place], [facility] Statistician Applied: Cholo Alicea MD Hematocrit (Bld) [Volume fraction] 37.5 % Normal 36.3-47.1 [facility] Comment on above: Performed By: #### C ALEXA CP, CK #### [address] [place], [facility] Statistician Applied: Cholo Alicea MD Hemoglobin (Bld) [Mass/Vol] 12.9 g/dL Normal 11.9-15.1 [facility] Comment on above: Performed By: #### C ANTONIA LIU, CK #### [address] [place] [address] Statistician Applied: Cholo Alicea MD Immature granulocytes/100 WBC (Bld) 0 % Normal 0 [facility] Comment on above: Performed By: #### C ALEXA CP, CK #### [address] [place], [facility] Statistician Applied: Cholo Alicea MD Lymphocytes (Bld) [#/Vol] 2.79 10*3/uL Normal 1.10-3.70 [facility] Comment on above: Performed By: #### C ANTONIA LIU, CK #### [address] [place], [place] [address] Statistician Applied: Cholo Alicea MD Lymphocytes/100 WBC (Bld) 42 % Normal 24-43 [facility] Comment on above: Performed By: #### C ANTONIA LIU, CK #### [address] [place], [facility] Statistician Applied: Cholo Alicea MD MCH (RBC) [Entitic mass] 30.4 pg Normal 25.2-33.5 [facility] Comment on above: Performed By: #### C ANTONIA LIU, CK #### [address] [place], [facility] Statistician Applied: Cholo Alicea MD MCHC (RBC) [Mass/Vol] 34.4 g/dL Normal 28.4-34.8 [facility] Comment on above: Performed By: #### C ANTONIA LIU, CK #### [address] [place], [place] [address] Statistician Applied: Cholo Alicea MD MCV (RBC) [Entitic vol] 88.2 fL Normal 82.6-102.9 [facility] Comment on above: Performed By: #### C DP, CP, CK #### [facility] [address] [place], [place] [address] Statistician Applied: Cholo Alicea MD Monocytes (Bld) [#/Vol] 0.46 10*3/uL Normal 0.10-1.20 [facility] Comment on above: Performed By: #### C DP, CP, CK #### [facility] [address] [place], [facility] Statistician Applied: Cholo Alicea MD Monocytes/100 WBC (Bld) 7 % Normal 3-12 [facility] Comment on above: Performed By: #### C DP CP, CK #### [address] [place], [place] [address] Statistician Applied: Cholo Alicea MD Neutrophil (Seg) 49 % Normal 36-65 [facility] Comment on above: Performed By: #### C ALEXA CP, CK #### [address] [place], [place] [address] Statistician Applied: Cholo Alicea MD NRBC Automated 0.0 per 100 WBC Normal 0.0 [facility] Comment on above: Performed By: #### C DP CP, CK #### [address] [place], [place] [address] Statistician Applied: Cholo Alicea MD Platelet mean volume (Bld) [Entitic vol] 10.5 fL Normal 8.1-13.5 [facility] Comment on above: Performed By: #### C DP, CP, CK #### [address] [place], [facility] Statistician Applied: Cholo Alicea MD Platelets (Bld) [#/Vol] 320 10*3/uL Normal 138-453 [facility] Comment on above: Performed By: #### C DP, CP, CK #### [facility] [address] [place] [address] Statistician Applied: Cholo Alicea MD RBC (Bld) [#/Vol] 4.25 10*6/uL Normal 3.95-5.11 [facility] Comment on above: Performed By: #### C DP, CP, CK #### [facility] [address] [place] [address] Statistician Applied: Cholo Alicea MD WBC (Bld) [#/Vol] 6.7 10*3/uL Normal 3.5-11.3 [facility] Comment on above: Performed By: #### C DP, CP, CK #### [address] [place], [facility] Statistician Applied: Cholo Alicea MD Comp Metabolic Profon 2022 Albumin [Mass/Vol] 4.6 g/dL Normal 3.5-5.2 [facility] Comment on above: Performed By: #### C DP, CP, CK #### [address] [place], [place] [address] Statistician Applied: Cholo Alicea MD Albumin/Glob Ratio 1.5 Normal 1.0-2.5 [facility] Comment on above: Performed By: #### C DP, CP, CK #### [address] [place], [facility] Statistician Applied: Cholo Alicea MD Alkaline Phos 72 U/L Normal 35-104 [facility] Comment on above: Performed By: #### C DP, CP, CK #### [address] [place], [place] [id number] Statistician Applied: Cholo Alicea MD ALT [Catalytic activity/Vol] 42 U/L High 5-33 [facility] Comment on above: Performed By: #### C DP, CP, CK #### [facility] [address] [place], [place] [id number] Statistician Applied: Cholo Alicea MD Anion gap [Moles/Vol] 11 mmol/L Normal 9-17 [facility] Comment on above: Performed By: #### C DP, CP, CK #### [facility] [address] [place], [place] [address]683 Statistician Applied: Cholo Alicea MD AST [Catalytic activity/Vol] 31 U/L Normal <32 [facility] Comment on above: Performed By: #### C DP, CP, CK #### [facility] [address] [place], [place] [id number] Statistician Applied: Cholo Alicea MD Bilirubin [Mass/Vol] 0.4 mg/dL Normal 0.3-1.2 [facility] Comment on above: Performed By: #### C DP, CP, CK #### [facility] [address] [place], [place] [address]83 Statistician Applied: Cholo Alicea MD BUN/CRE Ratio 10 Normal 9-20 [facility] Comment on above: Performed By: #### C DP, CP, CK #### [facility] [address] [place], [place] [address]83 Statistician Applied: Cholo Alicea MD Calcium [Mass/Vol] 10.4 mg/dL Normal 8.6-10.4 [facility] Comment on above: Performed By: #### C DP, CP, CK #### [facility] [address] [place], [place] [id number] Statistician Applied: Cholo Alicea MD Chloride [Moles/Vol] 101 mmol/L Normal 98-107 [facility] Comment on above: Performed By: #### C DP, CP, CK #### [facility] [address] [place], [place] [address]83 Statistician Applied: Cholo Alicea MD CO2 [Moles/Vol] 26 mmol/L Normal 20-31 [facility] Comment on above: Performed By: #### C DP, CP, CK #### [facility] [address] [place] [address] Statistician Applied: Cholo Alicea MD Creatinine [Mass/Vol] 0.9 mg/dL Normal 0.5-0.9 [facility] Comment on above: Performed By: #### C DP, CP, CK #### [facility] [address] [place] [address] Statistician Applied: Cholo Alicea MD GFR/1.73 sq M.predicted among non-blacks MDRD (S/P/Bld) [Vol rate/Area] mL/min/{1.73_m2} Normal >60 [facility] Comment on above: Result Comment: These [...] By: #### C DP, CP, CK #### [facility] [address] [place] [address] Statistician Applied: Cholo Alicea MD Glucose [Mass/Vol] 97 mg/dL Normal 70-99 [facility] Comment on above: Performed By: #### C DP, CP, CK #### [facility] [address] [place] [address] Statistician Applied: Cholo Alicea MD Potassium [Moles/Vol] 4.2 mmol/L Normal 3.7-5.3 [facility] Comment on above: Performed By: #### C DP, CP, CK #### [facility] [address] [place] [address] Statistician Applied: Cholo Alicea MD Protein [Mass/Vol] 7.6 g/dL Normal 6.4-8.3 [facility] Comment on above: Performed By: #### C DP, CP, CK #### [facility] [address] [place] [address] Statistician Applied: Cholo Alicea MD Sodium [Moles/Vol] 138 mmol/L Normal 135-144 [facility] Comment on above: Performed By: #### C DP, CP, CK #### [facility] [address] [place] [address] Statistician Applied: Cholo Alicea MD Urea nitrogen [Mass/Vol] 9 mg/dL Normal 6-20 [facility] Comment on above: Performed By: #### C DP, CP, CK #### [facility] [address] [place] [address] Statistician Applied: Cholo Alicea MD Creatine Kinaseon 03-10-2023 CK [Catalytic activity/Vol] 51 U/L Normal 26-192 [facility] Comment on above: Performed By: #### C ALEXA CP, CK #### [facility] [address] [place] [address] Statistician Applied: Cholo Alicea MD HCG, ,Urineon 03-10 Beta HCG ( test) Ql (U) Negative Normal NEG [facility] Comment on above: Result Comment: Spec imens with hCG levels near the threshold of the test (25 mIU/mL) may give a negative or indeterminate result. In such cases, another test should be performed with a new specimen in 48-72 hours. If early is suspected clinically in this setting, correlation with quantitative serum b-hCG level is suggested. [facility] has confirmed the use of plasma for this test. This has not been cleared or approved by the U.S. Food and Drug Administration. The FDA has determined that such clearance is not necessary. Performed By: #### U HCG, UAMIC #### [facility] [address] [place] [address] Statistician Applied: Cholo Alicea MD Urinalysis w/ Microon 2022 Bacteria TRACE Abnormal NONE [facility] Comment on above: Performed By: #### L IP, CDP, CP #### [facility] [address] [place], [place] [address]83 Statistician Applied: Cholo Alicea MD Bilirubin, SemiQt,Ur Negative Normal NEG [facility] Comment on above: Performed By: #### L IP, CDP, CP #### [facility] [address] [place] [address] Dr[place], [place] 0[address]4783 Statistician Applied: Cholo Alicea MD Blood, Urine Negative Normal NEG [facility] Comment on above: Performed By: #### L IP, CDP, CP #### [address] [place], [place] [id number] Statistician Applied: Cholo Alicea MD Clarity (U) Clear Normal CLEAR [facility] Comment on above: Performed By: #### L IP, CDP, CP #### [address] [place], [place] 48[address]783 Statistician Applied: Cholo Alicea MD Color (U) Yellow Normal YEL [facility] Comment on above: Performed By: #### L IP, CDP, CP #### [address] [place], [place] 0208383 Statistician Applied: Cholo Alicea MD Epithelial cells LM Ql (Urine sed) 0 TO 2 Normal 0-25 [facility] Comment on above: Performed By: #### L IP, CDP, CP #### [facility] [address] [place] [address] [place], [place] [id number] Statistician Applied: Cholo Alicea MD Glucose Ql (U) Negative Normal NEG [facility] Comment on above: Performed By: #### L IP, CDP, CP #### [facility] [address] [place] [address] [place] [address] Statistician Applied: Cholo Alicea MD Ketones Ql (U) Negative Normal NEG [facility] Comment on above: Performed By: #### L IP, CDP, CP #### [facility] [address] [place] [address] [place] [address] Statistician Applied: Cholo Alicea MD Leukocyte esterase Test strip Ql (U) Negative Normal NEG [facility] Comment on above: Performed By: #### L IP, CDP, CP #### [facility] [address] [place] [address] [place] [address] Statistician Applied: Cholo Alicea MD Nitrite,Ur Negative Normal NEG [facility] Comment on above: Performed By: #### L IP, CDP, CP #### [address] [place] [address] Statistician Applied: Cholo Alicea MD PH,Ur 7.5 Normal 5.0-9.0 [facility] Comment on above: Performed By: #### L IP, CDP, CP #### [address] [place], [place] [address]28783 Statistician Applied: Cholo Alicea MD Protein Ql (U) Negative Normal NEG [facility] Comment on above: Performed By: #### L IP, CDP, CP #### [facility] [address] [place] [address] [place] [address] Statistician Applied: Cholo Alicea MD Spec. Peck,Ur 1.010 Normal 1.010-1.[address] [facility] Comment on above: Performed By: #### L IP, CDP, CP #### [address] [place] [address] Statistician Applied: Cholo Alicea MD Urine RBC's None Normal 0-2 [facility] Comment on above: Performed By: #### L IP, CDP, CP #### [facility] [address] [place] [address] [place] [address] Statistician Applied: Cholo Alicea MD Urine WBC's 0 TO 2 Normal 0-5 [facility] Comment on above: Performed By: #### L IP, CDP, CP #### [facility] [address] [place] [address] Statistician Applied: Cholo Alicea MD Urobilinogen,Ur Normal Normal 0.0-1.0 [facility] Comment on above: Performed By: #### L IP, CDP, CP #### [facility] [address] [place] [address] Statistician Applied: Cholo Alicea MD COVID + FLU Quick Testingon 02-11-2023 SARS-CoV-2 (COVID-19) RNA ALKESANDER+probe Ql (Unsp spec) Negative [facility] Other COVID + FLU Quick Testing Negative [facility] Other Quick Strepon 02-11-2023 S. pyogenes Org specific cx Ql (Throat) Negative [facility] Other Quick Strep [employer] Other CNPNon 02-03-2023 CNPN Telephone (GASTSP) LULÚ GAITAN ([id number]) 1995 F Date Time Provider Department 02/03/23 [facility] During your visit today, we recorded [...] list full name of hospital or facility)? [facility] If the patient had a gastric emptying [...] G/J Tube?No Preferred phone number for contact: [phone] ? Viviana David 02/03/2023 3:38 PM Signed [...] Status:Closed by VIVIANA DAVID on 02/04/23 Normal [facility] ECG 12 lead ECGon 02-03-2023 ECG 12 lead ECG [facility] [place] [address] Electrocardiograph Report Signed Patient: Lulú Gaitan MR#: [id number] 4 : 1995 Acct:[id number] Age/Sex: 27 / F ADM Date: 02/02/23 Loc: Room: [address] [place] [address] Type: ADM IN Attending Dr: Karri Kamara [...] Charles Mauro MD 0 02/04/23 1319 Normal [facility] Alanine aminotransferase [En zymatic activity/volume] in Serum or PlasmaOrdered By: Matthew Leslie on 02-02-2023 ALT [Catalytic activity/Vol] 38 U/L 7-52 [facility] Albumin [Mass/volume] in Ser um or Plasma by Bromocresol green (BCG) dye binding methoOrdered By: Matthew Leslie on 02-02-2023 Albumin BCG dye [Mass/Vol] 4.6 g/dL 3.5-5.7 [facility] Alkaline phosphatase [Enzyma tic activity/volume] in Serum or PlasmaOrdered By: Matthew Leslie on 02-02-2023 ALP [Catalytic activity/Vol] 54 U/L 34-104 [facility] Amphetamine Screen Ql (U)Ord ered By: Matthew Leslie on 02-02-2023 Amphetamines Ql (U) Negative Negative [facility] Aspartate aminotransferase [ Enzymatic activity/volume] in Serum or PlasmaOrdered By: Matthew Leslie on 02-02-2023 AST [Catalytic activity/Vol] 32 U/L 13-39 [facility] Automated erythrocytes count in urine sediment (number/area)Ordered By: Matthew Leslie on 02-02-2023 RBC Auto (Urine sed) [#/Area] 10-19 [HPF] 0-4 [facility] Automated leukocytes count i n urine sediment (number/area)Ordered By: Matthew Leslie on 02-02-2023 WBC Auto (Urine sed) [#/Area] 10-19 [HPF] 0-4 [facility] Automated urine hyaline cast s count (number/volume)Ordered By: Matthew Leslie on 02-02-2023 Hyaline casts Auto (U) [#/Vol] 0-1 [LPF] 0-1 [facility] Barbiturates [Presence] in U rine by Screen methodOrdered By: Matthew Leslie on 02-02-2023 Barbiturates Screen Ql (U) Negative Negative [facility] Basophils Auto (Bld) [#/Vol] Ordered By: Matthew Leslie on 02-02-2023 Basophils (Bld) [#/Vol] 0.1 10*3/uL 0.0-0.2 [facility] Basophils/100 WBC Auto (Bld) Ordered By: Matthew Leslie on 02-02-2023 Basophils/100 WBC (Bld) 0.9 % . [facility] Benzodiazepines Screen Ql (U )Ordered By: Matthew Leslie on 02-02-2023 Benzodiazepines Ql (U) Negative Negative [facility] Benzoylecgonine [Presence] i n Urine by Screen methodOrdered By: Matthew Leslie on 02-02-2023 Benzoylecgonine Screen Ql (U) Negative Negative [facility] Bilirubin Test strip Ql (U)O rdered By: Matthew Leslie on 02-02-2023 Bilirubin Ql (U) Negative Negative [facility] Bilirubin.direct [Mass/volum e] in Serum or PlasmaOrdered By: Matthew Leslie on 02-02-2023 Bilirubin.direct [Mass/Vol] 0.10 mg/dL 0.03-0.18 [facility] Bilirubin.total [Mass/volume ] in Serum or PlasmaOrdered By: Matthew Leslie on 02-02-2023 Bilirubin [Mass/Vol] 0.6 mg/dL 0.3-1.0 [facility] Calcium [Mass/volume] in Ser um or PlasmaOrdered By: Matthew Leslie on 02-02-2023 Calcium [Mass/Vol] 9.5 mg/dL 8.6-10.3 [facility] Cannabinoids [Presence] in U rine by Screen methodOrdered By: Matthew Leslie on 02-02-2023 Cannabinoids Screen Ql (U) Negative Negative [facility] Comment on above: These are unconfirme d results and should not be used for legal purposes. Drug Cut-Off Concentration: AMPH 1000 ng/mL PONCHO 200 ng/mL KRISTAN 200 ng/mL COCM 300 ng/mL OP 300 ng/mL PCP 25 ng/mL THC 20 ng/mL Carbon dioxide, total [Moles /volume] in Serum or PlasmaOrdered By: Matthew Leslie on 02-02-2023 CO2 [Moles/Vol] 28.3 mmol/L 21.0-31.0 [facility] Casts typing in urine sedime nt by light microscopyOrdered By: Matthew Leslie on 02-02-2023 Casts LM Nom (Urine sed) None seen [LPF] None Seen [facility] Chloride [Moles/volume] in S barbra or PlasmaOrdered By: Matthew Leslie on 02-02-2023 Chloride [Moles/Vol] 107 mmol/L 98-107 [facility] Color Auto (U)Ordered By: Mariela Leslie on 02-02-2023 Color (U) Yellow Yellow [facility] Complete Blood Count Auto Di ffon 02-02-2023 Basophils (Bld) [#/Vol] 0.1 10*3/uL Normal 0.0-0.2 [facility] Comment on above: Result Comment: PERF ORMED BY: [place] [address] PATHOLOGIST NUTRITION AIDE MOISES VELASCO M.D. Performed By: #### E TANYA, HEPATIC, TSH3 wRFLX, CBC, CMP, [id number] #### [address] Basophils/100 WBC (Bld) 0.9 % Normal . [facility] Comment on above: Performed By: #### E TANYA, HEPATIC, TSH3 wRFLX, CBC, CMP, [id number] #### [address] Eosinophils (Bld) [#/Vol] 0.0 10*3/uL Normal 0.0-0.45 [facility] Comment on above: Performed By: #### E TANYA, HEPATIC, TSH3 wRFLX, CBC, CMP, [id number] #### [address] Eosinophils/100 WBC (Bld) 0.4 % Normal . [facility] Comment on above: Performed By: #### E TAYNA, HEPATIC, TSH3 wRFLX, CBC, CMP, [id number] #### [address] Erythrocyte distribution width (RBC) [Ratio] 12.9 % Normal 11.9-15.3 [facility] Comment on above: Performed By: #### E TANYA, HEPATIC, TSH3 wRFLX, CBC, CMP, [id number] #### [address] Hematocrit (Bld) [Volume fraction] 41.1 % Normal 34.0-46.4 [facility] Comment on above: Performed By: #### E TANYA, HEPATIC, TSH3 wRFLX, CBC, CMP, [id number] #### [address] Hemoglobin (Bld) [Mass/Vol] 13.8 g/dL Normal 11.8-15.4 [facility] Comment on above: Performed By: #### E TANYA, HEPATIC, TSH3 wRFLX, CBC, CMP, [id number] #### [address] Lymphocytes (Bld) [#/Vol] 2.7 10*3/uL Normal 1.00-4.8 [facility] Comment on above: Performed By: #### E TANYA, HEPATIC, TSH3 wRFLX, CBC, CMP, [id number] #### [address] Lymphocytes/100 WBC (Bld) 36.0 % Normal . [facility] Comment on above: Performed By: #### E TANYA, HEPATIC, TSH3 wRFLX, CBC, CMP, [id number] #### [address] MCH (RBC) [Entitic mass] 29.4 pg Normal 24.7-34.3 [facility] Comment on above: Performed By: #### E TANYA, HEPATIC, TSH3 wRFLX, CBC, CMP, [id number] #### [address] MCV (RBC) [Entitic vol] 87.6 fL Normal 80-100 [facility] Comment on above: Performed By: #### E TANYA, HEPATIC, TSH3 wRFLX, CBC, CMP, [id number] #### [address] Mean Corpuscular HGB Conc 33.6 g/dL Normal 32.0-35.0 [facility] Comment on above: Performed By: #### E TANYA, HEPATIC, TSH3 wRFLX, CBC, CMP, [id number] #### [address] Monocytes (Bld) [#/Vol] 0.6 10*3/uL Normal 0.0-0.8 [facility] Comment on above: Performed By: #### E TANYA, HEPATIC, TSH3 wRFLX, CBC, CMP, [id number] #### [place] [address] [place] Monocytes/100 WBC (Bld) 17.83 % Normal 0.00-20.00 [facility] Comment on above: Performed By: #### E TANYA, HEPATIC, TSH3 wRFLX, CBC, CMP, [id number] #### [address] Monocytes/100 WBC (Bld) 7.9 % Normal . [facility] Comment on above: Performed By: #### E TANYA, HEPATIC, TSH3 wRFLX, CBC, CMP, [id number] #### [facility] [address] [place] [address] [place] Neutrophils (Bld) [#/Vol] 4.2 10*3/uL Normal 1.8-7.7 [facility] Comment on above: Performed By: #### E TANYA, HEPATIC, TSH3 wRFLX, CBC, CMP, [id number] #### [facility] [address] [place] [address] Neutrophils/100 WBC (Bld) 54.8 % Normal . [facility] Comment on above: Performed By: #### E TANYA, HEPATIC, TSH3 wRFLX, CBC, CMP, [id number] #### [address] NRBC% 0.0 /100{WBC} Normal 0-0.5 [facility] Comment on above: Performed By: #### E TANYA, HEPATIC, TSH3 wRFLX, CBC, CMP, [id number] #### [address] Platelet mean volume (Bld) [Entitic vol] 9.2 fL Normal 6.3-10.7 [facility] Comment on above: Performed By: #### E TANYA, HEPATIC, TSH3 wRFLX, CBC, CMP, [id number] #### [facility] [address] [place] [address] [place] Platelets (Bld) [#/Vol] 322 10*3/uL Normal 150-450 [facility] Comment on above: Performed By: #### E TANYA, HEPATIC, TSH3 wRFLX, CBC, CMP, [id number] #### [facility] [address] [place] [address] [place] RBC (Bld) [#/Vol] 4.70 10*6/uL Normal 3.60-5.00 [facility] Comment on above: Performed By: #### E TANYA, HEPATIC, TSH3 wRFLX, CBC, CMP, [id number] #### [address] [address] [place] WBC (Bld) [#/Vol] 7.6 10*3/uL Normal 3.8-11.6 [facility] Comment on above: Performed By: #### E TANYA, HEPATIC, TSH3 wRFLX, CBC, CMP, [id number] #### [facility] [address] [place] [address] Comprehensive Metabolic Pane akbar 02-02-2023 Albumin [Mass/Vol] 4.6 g/dL Normal 3.5-5.7 [facility] Comment on above: Performed By: #### U HCG, ADDONUAPLUS, URDS, CUU #### [address] Albumin/Globulin [Mass ratio] 1.4 {ratio} Normal [facility] Comment on above: Performed By: #### U HCG, ADDONUAPLUS, URDS, CUU #### [address] ALP [Catalytic activity/Vol] 54 U/L Normal 34-104 [facility] Comment on above: Performed By: #### U HCG, ADDONUAPLUS, URDS, CUU #### [address] ALT [Catalytic activity/Vol] 38 U/L Normal 7-52 [facility] Comment on above: Performed By: #### U HCG, ADDONUAPLUS, URDS, CUU #### [facility] [address] [place] [address] Anion gap [Moles/Vol] 9.5 mmol/L Normal 6.0-15.0 [facility] Comment on above: Performed By: #### U HCG, ADDONUAPLUS, URDS, CUU #### [address] AST [Catalytic activity/Vol] 32 U/L Normal 13-39 [facility] Comment on above: Performed By: #### U HCG, ADDONUAPLUS, URDS, CUU #### [address] [address] [place] Bilirubin [Mass/Vol] 0.6 mg/dL Normal 0.3-1.0 [facility] Comment on above: Performed By: #### U HCG, ADDONUAPLUS, URDS, CUU #### [facility] [address] Calcium [Mass/Vol] 9.5 mg/dL Normal 8.6-10.3 [facility] Comment on above: Performed By: #### U HCG, ADDONUAPLUS, URDS, CUU #### [facility] [address] Chloride [Moles/Vol] 107 mmol/L Normal 98-107 [facility] Comment on above: Performed By: #### U HCG, ADDONUAPLUS, URDS, CUU #### [facility] [address] [place] [address] CO2 [Moles/Vol] 28.3 mmol/L Normal 21.0-31.0 [facility] Comment on above: Performed By: #### U HCG, ADDONUAPLUS, URDS, CUU #### [facility] [address] [place] [address] Creatinine [Mass/Vol] 1.14 mg/dL Normal 0.60-1.20 [facility] Comment on above: Performed By: #### U HCG, ADDONUAPLUS, URDS, CUU #### [facility] [address] [place] [address] Creatinine Clr Calc Pharmacy 76.05 [facility] Comment on above: Result Comment: PERF ORMED BY: [place] [address] PATHOLOGIST NUTRITION AIDE MOISES VELASCO M.D. Performed By: #### U HCG, ADDONUAPLUS, URDS, CUU #### [facility] [address] [place] [address] [place] GFR/1.73 sq M.predicted MDRD (S/P/Bld) [Vol rate/Area] mL/min/{1.73_m2} [facility] Comment on above: Performed By: #### U HCG, ADDONUAPLUS, URDS, CUU #### [facility] [address] Globulin (S) [Mass/Vol] 3.2 g/dL Normal [facility] Comment on above: Performed By: #### U HCG, ADDONUAPLUS, URDS, CUU #### [facility] [address] [place] [address] Glucose [Mass/Vol] 98 mg/dL Normal 70-100 [facility] Comment on above: Result Comment: [place] Glucose Reference Range is dependent on time and content of last meal. Glucose of more than 200 mg/dL in a nonstressed, ambulatory subject supports the diagnosis of Diabetes Mellitus. ADA recommended reference range Performed By: #### U HCG, ADDONUAPLUS, URDS, CUU #### [address] Potassium [Moles/Vol] 3.8 mmol/L Normal 3.5-5.1 [facility] Comment on above: Performed By: #### U HCG, ADDONUAPLUS, URDS, CUU #### [address] Protein [Mass/Vol] 7.8 g/dL Normal 6.4-8.9 [facility] Comment on above: Performed By: #### U HCG, ADDONUAPLUS, URDS, CUU #### [place] [address] [place] Sodium [Moles/Vol] 141 mmol/L Normal 136-145 [facility] Comment on above: Performed By: #### U HCG, ADDONUAPLUS, URDS, CUU #### [address] Urea nitrogen [Mass/Vol] 11 mg/dL Normal 7-25 [facility] Comment on above: Performed By: #### U HCG, ADDONUAPLUS, URDS, CUU #### [place] [address] [place] Creatinine [Mass/volume] in Serum or PlasmaOrdered By: Matthew Leslie on 02-02-2023 Creatinine [Mass/Vol] 1.14 mg/dL 0.60-1.20 [facility] Dipstick and Microscopicon 0 02-02-2023 Appearance (U) Cloudy Critically abnormal Clear [facility] Comment on above: Order Comment: Name Collection Type:: Clean-Voided Midstream Performed By: #### U HCG, ADDONUAPLUS, URDS, CUU #### [facility] [address] [place] [address] Bacteria,Urine 1+ High None Seen [facility] Comment on above: Order Comment: Name Collection Type:: Clean-Voided Midstream Performed By: #### U HCG, ADDONUAPLUS, URDS, CUU #### [facility] [address] [place] [address] Bilirubin,Urine Negative Normal Negative [facility] Comment on above: Order Comment: Name Collection Type:: Clean-Voided Midstream Performed By: #### U HCG, ADDONUAPLUS, URDS, CUU #### [facility] [address] [place] [address] Color (U) Yellow Normal Yellow [facility] Comment on above: Order Comment: Name Collection Type:: Clean-Voided Midstream Performed By: #### U HCG, ADDONUAPLUS, URDS, CUU #### [facility] [address] [place] [address] Glucose Ql (U) Normal Normal Normal [facility] Comment on above: Order Comment: Name Collection Type:: Clean-Voided Midstream Performed By: #### U HCG, ADDONUAPLUS, URDS, CUU #### [facility] [address] [place] [address] [place] Hyaline Casts,Urine 0-1 Normal 0-1 [facility] Comment on above: Order Comment: Name Collection Type:: Clean-Voided Midstream Performed By: #### U HCG, ADDONUAPLUS, URDS, CUU #### [facility] [address] [place] [address] [place] Ketones Ql (U) 2+ High Negative [facility] Comment on above: Order Comment: Name Collection Type:: Clean-Voided Midstream Performed By: #### U HCG, ADDONUAPLUS, URDS, CUU #### [address] Leukocyte esterase Test strip Ql (U) 2+ High Negative [facility] Comment on above: Order Comment: Name Collection Type:: Clean-Voided Midstream Performed By: #### U HCG, ADDONUAPLUS, URDS, CUU #### [address] Nitrite,Urine Negative Normal Negative [facility] Comment on above: Order Comment: Name Collection Type:: Clean-Voided Midstream Performed By: #### U HCG, ADDONUAPLUS, URDS, CUU #### [address] Occult Blood,Urine 3+ High Negative [facility] Comment on above: Order Comment: Name Collection Type:: Clean-Voided Midstream Performed By: #### U HCG, ADDONUAPLUS, URDS, CUU #### [facility] [address] [place] [address] Other Casts,Urine None Seen Normal None Seen [facility] Comment on above: Order Comment: Name Collection Type:: Clean-Voided Midstream Performed By: #### U HCG, ADDONUAPLUS, URDS, CUU #### [facility] [address] [place] [address] pH (U) 6.0 [pH] Normal 5.0-9.0 [facility] Comment on above: Order Comment: Name Collection Type:: Clean-Voided Midstream Performed By: #### U HCG, ADDONUAPLUS, URDS, CUU #### [address] Protein (U) [Mass/Vol] 30 mg/dL High Negative [facility] Comment on above: Order Comment: Name Collection Type:: Clean-Voided Midstream Performed By: #### U HCG, ADDONUAPLUS, URDS, CUU #### [facility] [address] [place] [address] [place] RBC,Urine 10-19 High 0-4 [facility] Comment on above: Order Comment: Name Collection Type:: Clean-Voided Midstream Performed By: #### U HCG, ADDONUAPLUS, URDS, CUU #### [facility] [address] [place] [address] Specificy Peck,Urine 1.027 Normal 1.001-1.030 [facility] Comment on above: Order Comment: Name Collection Type:: Clean-Voided Midstream Performed By: #### U HCG, ADDONUAPLUS, URDS, CUU #### [facility] [address] [place] [address] Squamous Epithelial Cell,Urine 3-4 High 0-2 [facility] Comment on above: Order Comment: Name Collection Type:: Clean-Voided Midstream Performed By: #### U HCG, ADDONUAPLUS, URDS, CUU #### [facility] [address] [place] [address] Urobilinogen,Urine Normal Normal Normal [facility] Comment on above: Order Comment: Name Collection Type:: Clean-Voided Midstream Performed By: #### U HCG, ADDONUAPLUS, URDS, CUU #### [facility] [address] [place] [address] [place] WBC,Urine 10-19 High 0-4 [facility] Comment on above: Order Comment: Name Collection Type:: Clean-Voided Midstream Performed By: #### U HCG, ADDONUAPLUS, URDS, CUU #### [facility] [address] [place] [address] Yeast,Urine None Seen Normal None Seen [facility] Comment on above: Order Comment: Name Collection Type:: Clean-Voided Midstream Performed By: #### U HCG, ADDONUAPLUS, URDS, CUU #### [facility] [address] [place] [address] Drug Screen,Urineon 02-03-20 Amphetamine Screen,Urine Negative Normal Negative [facility] Comment on above: Performed By: #### U HCG, ADDONUAPLUS, URDS, CUU #### [address] Barbiturate Screen,Urine Negative Normal Negative [facility] Comment on above: Performed By: #### U HCG, ADDONUAPLUS, URDS, CUU #### [address] Benzodiazepines Screen,Urine Negative Normal Negative [facility] Comment on above: Performed By: #### U HCG, ADDONUAPLUS, URDS, CUU #### [address] Cannabinoid Screen,Urine Negative Normal Negative [facility] Comment on above: Result Comment: Thes e are unconfirmed results and should not be used for legal purposes. Drug Cut-Off Concentration: AMPH 1000 ng/mL PONCHO 200 ng/mL KRISTAN 200 ng/mL COCM 300 ng/mL OP 300 ng/mL PCP 25 ng/mL THC 20 ng/mL PERFORMED BY: [place] [address] PATHOLOGIST NUTRITION AIDE MOISES VLEASCO M.D. Performed By: #### U HCG, ADDONUAPLUS, URDS, CUU #### [address] Cocaine Screen,Urine Negative Normal Negative [facility] Comment on above: Performed By: #### U HCG, ADDONUAPLUS, URDS, CUU #### [address] Opiate Screen,Urine Negative Normal Negative [facility] Comment on above: Performed By: #### U HCG, ADDONUAPLUS, URDS, CUU #### [address] Phencyclidine Screen,Urine Negative Normal Negative [facility] Comment on above: Performed By: #### U HCG, ADDONUAPLUS, URDS, CUU #### [address] Eosinophils Auto (Bld) [#/Vo l]Ordered By: Matthew Leslie on 02-02-2023 Eosinophils (Bld) [#/Vol] 0.0 10*3/uL 0.0-0.45 [facility] Eosinophils/100 WBC Auto (Bl d)Ordered By: Matthew Leslie on 02-02-2023 Eosinophils/100 WBC (Bld) 0.4 % . [facility] Erythrocyte distribution wid th Auto (RBC) [Ratio]Ordered By: Matthew Leslie on 02-02-2023 Erythrocyte distribution width (RBC) [Ratio] 12.9 % 11.9-15.3 [facility] Ethanol [Mass/volume] in Ser um or PlasmaOrdered By: Matthew Leslie on 02-02-2023 Ethanol [Mass/Vol] mg/dL [facility] Ethanol [Mass/Vol] TNP [facility] Comment on above: Test not performed Ethyl Alcohol Profileon Ethanol [Mass/Vol] mg/dL Normal [facility] Comment on above: Performed By: #### E TANYA, HEPATIC, TSH3 wRFLX, CBC, CMP, [id number] #### [facility] [address] Percent Ethanol Not performed Normal [facility] Comment on above: Result Comment: PERF ORMED BY: [place] [address] PATHOLOGIST NUTRITION AIDE MOISES VELASCO M.D. Performed By: #### E TANYA, HEPATIC, TSH3 wRFLX, CBC, CMP, [id number] #### [facility] [address] Globulin Calc (S) [Mass/Vol] Ordered By: Matthew Leslie on 02-02-2023 Globulin (S) [Mass/Vol] 3.2 g/dL [facility] Glucose [Mass/volume] in Ser um or PlasmaOrdered By: Matthew Leslie on 02-02-2023 Glucose [Mass/Vol] 98 mg/dL 70-100 [facility] Comment on above: ADA recommended refe rence rangeRandom Glucose Reference Range is dependent on time and content of last meal. Glucose of more than 200 mg/dL in a nonstressed, ambulatory subject supports the diagnosis of Diabetes Mellitus. HCG ( test) IApo d Ql (U)Ordered By: Matthew Leslie on 02-02-2023 HCG ( test) Ql (U) Negative [facility] HCG,Urineon 02-02-2023 Beta HCG ( test) Ql (U) Negative Normal [facility] Comment on above: Order Comment: Name Collection Type:: Clean-Voided Midstream Result Comment: PERF ORMED BY: [place] [address] PATHOLOGIST NUTRITION AIDE MOISES VELASCO M.D. Performed By: #### U HCG, ADDONUAPLUS, URDS, CUU #### [facility] [address] [place] [address] Hematocrit Auto (Bld) [Volum e fraction]Ordered By: Matthew Leslie on 02-02-2023 Hematocrit (Bld) [Volume fraction] 41.1 % 34.0-46.4 [facility] Hemoglobin [Mass/volume] in BloodOrdered By: Matthew Leslie on 02-02-2023 Hemoglobin (Bld) [Mass/Vol] 13.8 g/dL 11.8-15.4 [facility] Hepatic Panelon 02-02-2023 Bilirubin,Indirect 0.5 mg/dL Normal [facility] Comment on above: Performed By: #### U HCG, ADDONUAPLUS, URDS, CUU #### [facility] [address] [place] [address] Bilirubin.indirect [Mass/Vol] 0.10 mg/dL Normal 0.03-0.18 [facility] Comment on above: Performed By: #### U HCG, ADDONUAPLUS, URDS, CUU #### [facility] [address] [place] [address] Ketones Auto test strip (U) [Mass/Vol]Ordered By: Matthew Leslie on 02-02-2023 Ketones (U) [Mass/Vol] 2+ Negative [facility] Leukocytes [#/volume] correc alberto for nucleated erythrocytes in Blood by Automated counOrdered By: Matthew Leslie on 02-02-2023 WBC corrected for nucl RBC Auto (Bld) [#/Vol] 7.6 10*3/uL 3.8-11.6 [facility] Lymphocytes Auto (Bld) [#/Vo l]Ordered By: Matthew Leslie on 02-02-2023 Lymphocytes (Bld) [#/Vol] 2.7 10*3/uL 1.00-4.8 [facility] Lymphocytes/100 WBC Auto (Bl d)Ordered By: Matthew Leslie on 02-02-2023 Lymphocytes/100 WBC (Bld) 36.0 % . [facility] MCH Auto (RBC) [Entitic mass ]Ordered By: Matthew Leslie on 02-02-2023 MCH (RBC) [Entitic mass] 29.4 pg 24.7-34.3 [facility] MCHC Auto (RBC) [Mass/Vol]Or dered By: Matthew Leslie on 02-02-2023 MCHC (RBC) [Mass/Vol] 33.6 g/dL 32.0-35.0 [facility] MCV Auto (RBC) [Entitic vol] Ordered By: Matthew Leslie on 02-02-2023 MCV (RBC) [Entitic vol] 87.6 fL 80-100 [facility] Monocyte distribution width [Entitic volume] in Blood by AutomatedOrdered By: Matthew Leslie on 02-02-2023 Monocyte distribution width Auto (Bld) [Entitic vol] 17.83 % 0.00-20.00 [facility] Monocytes Auto (Bld) [#/Vol] Ordered By: Matthew Leslie on 02-02-2023 Monocytes (Bld) [#/Vol] 0.6 10*3/uL 0.0-0.8 [facility] Monocytes/100 WBC Auto (Bld) Ordered By: Matthew Leslie on 02-02-2023 Monocytes/100 WBC (Bld) 7.9 % . [facility] Neutrophils Auto (Bld) [#/Vo l]Ordered By: Matthew Leslie on 02-02-2023 Neutrophils (Bld) [#/Vol] 4.2 10*3/uL 1.8-7.7 [facility] Neutrophils/100 WBC Auto (Bl d)Ordered By: Matthew Leslie on 02-02-2023 Neutrophils/100 WBC (Bld) 54.8 % . [facility] Nitrite Test strip Ql (U)Ord ered By: Matthew Leslie on 02-02-2023 Nitrite Ql (U) Negative Negative [facility] No Panel InformationOrdered By: Matthew Leslie on 02-02-2023 Estimated GFR (CKD-EPI) > 60.0 mL/Min [facility] Creatinine Clearance (Chem 76.05 [facility] Nucleated erythrocytes [Pres ence] in Blood by Automated countOrdered By: Matthew Leslie on 02-02-2023 Nucleated RBC Auto Ql (Bld) 0.0 /100{WBC} 0-0.5 [facility] Opiates [Presence] in Urine by Screen methodOrdered By: Matthew Leslie on 02-02-2023 Opiates Screen Ql (U) Negative Negative [facility] Phencyclidine Screen Ql (U)O rdered By: Matthew Leslie on 02-02-2023 Phencyclidine Ql (U) Negative Negative [facility] Platelet mean volume Auto (B ld) [Entitic vol]Ordered By: Matthew Leslie on 02-02-2023 Platelet mean volume (Bld) [Entitic vol] 9.2 fL 6.3-10.7 [facility] Platelets Auto (Bld) [#/Vol] Ordered By: Matthew Leslie on 02-02-2023 Platelets (Bld) [#/Vol] 322 10*3/uL 150-450 [facility] Potassium [Moles/volume] in Serum or PlasmaOrdered By: Matthew Leslie on 02-02-2023 Potassium [Moles/Vol] 3.8 mmol/L 3.5-5.1 [facility] Protein Auto test strip (U) [Mass/Vol]Ordered By: Matthew Leslie on 02-02-2023 Protein (U) [Mass/Vol] 30 mg/dL Negative [facility] Protein [Mass/volume] in Ser um or PlasmaOrdered By: Matthew Leslie on 02-02-2023 Protein [Mass/Vol] 7.8 g/dL 6.4-8.9 [facility] RBC Auto (Bld) [#/Vol]Ordere d By: Matthew Leslie on 02-02-2023 RBC (Bld) [#/Vol] 4.70 10*6/uL 3.60-5.00 [facility] Serum or plasma albumin/glob ulin mass ratioOrdered By: Matthew Leslie on 02-02-2023 Albumin/Globulin [Mass ratio] 1.4 {ratio} [facility] Serum or plasma anion gap de terminationOrdered By: Matthew Leslie on 02-02-2023 Anion gap [Moles/Vol] 9.5 mmol/L 6.0-15.0 [facility] Serum or plasma non-glucuron idated bilirubin measurement (mass/volume)Ordered By: Matthew Leslie on 02-02-2023 Bilirubin.indirect [Mass/Vol] 0.5 mg/dL [facility] Sodium [Moles/volume] in Ser um or PlasmaOrdered By: Matthew Leslie on 02-02-2023 Sodium [Moles/Vol] 141 mmol/L 136-145 [facility] Specific gravity Auto test s trip (U) [Rel density]Ordered By: Matthew Leslie on 02-02-2023 Specific gravity (U) [Rel density] 1.027 1.001-1.030 [facility] Squamous epithelial cells de tection in urine sediment by light microscopyOrdered By: Matthew Leslie on 02-02-2023 Epithelial cells.squamous LM Ql (Urine sed) 3-4 [HPF] 0-2 [facility] Thyroid Stim Hormone w/Rflxo n 02-02-2023 Thyroid Stim Hormone w/Rflx 3.74 u[iU]/mL Normal 0.45-5.33 [facility] Comment on above: Performed By: #### U HCG, ADDONUAPLUS, URDS, CUU #### [facility] [address] [place] [address] Thyrotropin [Units/volume] i n Serum or PlasmaOrdered By: Matthew Leslie on 02-02-2023 TSH Qn 3.74 m[IU]/L 0.45-5.33 [facility] Urea nitrogen [Mass/volume] in Serum or PlasmaOrdered By: Matthew Leslie on 02-02-2023 Urea nitrogen [Mass/Vol] 11 mg/dL 7-25 [facility] Urine Cultureon 02-02-2023 Bacteria identified Cx Nom (U) No Growth 2 Days PERFORMED BY: [facility] [address] [place] [address] PATHOLOGIST NUTRITION AIDE MOISES VELASCO M.D. [facility] Comment on above: Performed By: #### U HCG, ADDONUAPLUS, URDS, CUU #### [facility] [address] Urine bacteria detection by automated methodOrdered By: Matthew Leslie on 02-02-2023 Bacteria Auto Ql (U) 1+ None Seen [facility] Urine clarity by refractomet ry automatedOrdered By: Matthew Leslie on 02-02-2023 Clarity Refractometry automated (U) Cloudy Clear [facility] Urine culture routineOrdered By: Matthew Leslie on 02-02-2023 Bacteria identified Cx Nom (U) No Growth 2 Days [facility] Urine glucose measurement by automated test strip (mass/volume)Ordered By: Matthew Leslie on 02-02-2023 Glucose Auto test strip (U) [Mass/Vol] Normal mg/dL Normal [facility] Urine hemoglobin detection b y automated test stripOrdered By: Matthew Leslie on 02-02-2023 Hemoglobin Auto test strip Ql (U) 3+ Negative [facility] Urine leukocyte esterase det ection by automated test stripOrdered By: Matthew Leslie on 02-02-2023 Leukocyte esterase Auto test strip Ql (U) 2+ Negative [facility] Urobilinogen Auto test strip (U) [Mass/Vol]Ordered By: Matthew Leslie on 02-02-2023 Urobilinogen (U) [Mass/Vol] Normal mg/dL Normal [facility] Vitamin D 25 Hydroxy Totalon 02-02-2023 Vitamin D 25 Hydroxy Total 54.2 ng/mL Normal 30-100 [facility] Comment on above: Result Comment: MABLE MIN D STATUS 25(OH)VITAMIN D RANGE (ng/mL) Deficient <20 Insufficient 20 to <30 Sufficient 30 to 100 Reference: Miri MF,Nimisha MCLAIN, Luisa MCCRACKEN, et al. Evaluation,treatment, and prevention of vitamin D deficiency; an Endocrine Society clinical practice guideline. JCEM. 2010; 96(7):1911-30. PERFORMED BY: [facility] [address] [place] [address] PATHOLOGIST NUTRITION AIDE MOISES VELASCO M.D. Performed By: #### U HCG, MARICRUZ URCARLOS MANUEL, CUU #### [facility] [address] Vitamin D+Metabolites [Mass/ volume] in Serum or PlasmaOrdered By: Matthew Leslie on 02-02-2023 Vitamin D+Metabolites [Mass/Vol] 54.2 ng/mL 30-100 [facility] Comment on above: VITAMIN D STATUS 25( [place])VITAMIN D RANGE (ng/mL) Deficient <20 Insufficient 20 to <30Sufficient 30 to 100Reference: Miri MF,Nimisha MCLAIN, Luisa MCCRACKEN, et al. Evaluation,treatment, and prevention of vitamin D deficiency; an Endocrine Society clinical practice guideline. JCEM. 2010; 96(7):191-. WBC Auto (Bld) [#/Vol]Ordere d By: Matthew Leslie on 02-02-2023 WBC (Bld) [#/Vol] 7.6 10*3/uL 3.8-11.6 [facility] Yeast detection in urine sed iment by light microscopyOrdered By: Matthew Leslie on 02-02-2023 Yeast LM Ql (Urine sed) None seen [HPF] None Se en [facility] pH Auto test strip (U)Ordere d By: Matthew Leslie on 02-02-2023 pH (U) 6.0 [pH] 5.0-9.0 [facility] AMNISUREon 09-16-2022 AMNISURE Positive Abnormal NEGATIVE [facility] Comment on above: Performed By: #### A MNI #### [facility] [address] [address] [address] Adrianna Caldera CBC AUTO DIFFon 09-16-2022 BASO # 0.1 103/ul Normal 0.0-0.1 [facility] Comment on above: Performed By: #### C BC #### [facility] [address] [address] [address] Adrianna Caldera Basophils/100 WBC (Bld) 0.4 % Normal 0.2-2.0 [facility] Comment on above: Performed By: #### C BC #### [facility] [address] [place] [address] Dr. Adrianna Caldera EO # 0.0 103/ul Normal 0.0-0.7 [facility] Comment on above: Performed By: #### C BC #### [facility] [address] [place] [address] Dr. Adrianna Caldera Eosinophils/100 WBC (Bld) 0.1 % Critically low 0.9-7.0 [facility] Comment on above: Performed By: #### C BC #### [facility] [address] [place] [address] Dr. Adrianna Caldera Erythrocyte distribution width (RBC) [Ratio] 12.3 % Normal 11.0-15.0 [facility] Comment on above: Performed By: #### C BC #### [facility] [address] [place] [address] Dr. Adrianna Caldera Hematocrit (Bld) [Volume fraction] 38.3 % Normal 36.0-48.0 [facility] Comment on above: Performed By: #### C BC #### [facility] [address] [place] [address] Dr. Adrianna Caldera Hemoglobin (Bld) [Mass/Vol] 12.8 g/dL Normal 12.0-16.0 [facility] Comment on above: Performed By: #### C BC #### [facility] [address] [place] [address] Dr. Adrianna Caldera IG # 0.20 10e3/ul Critically high 0.00-0.03 [facility] Comment on above: Performed By: #### C BC #### [facility] [address] [place] [address] Dr. Adrianna Caldera IG % 1.0 % Critically high 0.0-0.5 [facility] Comment on above: Performed By: #### C BC #### [facility] [address] [place] [address] Dr. Adrianna Caldera LYMPH # 1.5 103/ul Normal 1.2-3.8 [facility] Comment on above: Performed By: #### C BC #### [facility] [address] [place] [address] Dr. Adrianna Caldera Lymphocytes/100 WBC (Bld) 7.7 % Critically low 20.5-60.0 [facility] Comment on above: Performed By: #### C BC #### [facility] [address] [place] [address] Dr. Adrianna Caldera MANUAL DIFF REQ NO Normal [facility] Comment on above: Performed By: #### C BC #### [facility] [address] [place] [address] Dr. Adrianna Caldera MCH (RBC) [Entitic mass] 28.9 pg Normal 26.7-34.0 [facility] Comment on above: Performed By: #### C BC #### [facility] [address] [place] [address] Dr. Adrianna Caldera MCHC (RBC) [Mass/Vol] 33.4 g/dL Normal 29.9-35.2 [facility] Comment on above: Performed By: #### C BC #### [facility] [address] [place] [address] Dr. Adrianna Caldera MCV (RBC) [Entitic vol] 86.5 fL Normal 81.0-99.0 [facility] Comment on above: Performed By: #### C BC #### [facility] [address] [place] [address] Dr. Adrianna Caldera MONO # 0.3 103/ul Normal 0.3-0.8 [facility] Comment on above: Performed By: #### C BC #### [facility] [address] [place] [address] Dr. Adrianna Caldera Monocytes/100 WBC (Bld) 1.7 % Normal 1.7-12.0 [facility] Comment on above: Performed By: #### C BC #### [facility] [address] [place] [address] Dr. Adrianna Caldera NEUT # 17.5 103/ul Critically high 1.4-6.5 [facility] Comment on above: Performed By: #### C BC #### [facility] [address] [place] [address] Dr. Adrianna Caldera Neutrophils/100 WBC (Bld) 89.1 % Critically high 43.0-75.0 [facility] Comment on above: Performed By: #### C BC #### [facility] [address] [place] [address] Dr. Adrianna Caldera Platelet mean volume (Bld) [Entitic vol] 10.7 fL Normal 9.5-13.5 [facility] Comment on above: Performed By: #### C BC #### [facility] [address] [place] [address] Dr. Adrianna Caldera PLT 356 103/ul Normal 150-450 [facility] Comment on above: Performed By: #### C BC #### [facility] [address] [place] [address] Dr. Adrianna Caldera RBC 4.43 106/ul Normal 4.20-5.40 [facility] Comment on above: Performed By: #### C BC #### [facility] [address] [place] [address] Dr. Adrianna Caldera WBC 19.6 103/ul Critically high 4.0-11.0 [facility] Comment on above: Performed By: #### C BC #### [facility] [address] [place] [address] Dr. Adrianna Caldera UA (CLEAN/CATCH) FLOORWORKER LASTING/MICRO I F IND.on 09-16-2022 Bilirubin Ql (U) Negative Normal NEGATIVE [facility] Comment on above: Performed By: #### U ACSIND #### [facility] [address] [place] [address] Dr. Adrianna Caldera Clarity (U) CLEAR Normal CLEAR [facility] Comment on above: Performed By: #### U ACSIND #### [facility] [address] [place] [address] Dr. Adrianna Caldera Color (U) LT. YELLOW Normal YELLOW [facility] Comment on above: Performed By: #### U ACSIND #### [facility] [address] [address] [address] Adrianna Caldera Glucose Ql (U) Negative Normal NEGATIVE [facility] Comment on above: Performed By: #### U ACSIND #### [facility] [address] [address] [address] Adrianna Caldera Hemoglobin Ql (U) Negative Normal NEGATIVE [facility] Comment on above: Performed By: #### U ACSIND #### [facility] [address] [address] [address] Adrianna Caldera Ketones Ql (U) Negative Normal NEGATIVE [facility] Comment on above: Performed By: #### U ACSIND #### [facility] [address] [address] [address] Adrianna Caldera LEUKOCYTES Negative Normal NEGATIVE [facility] [facility] Comment on above: Performed By: #### U ACSIND #### [facility] [address] [address] [address] Adrianna Caldera Nitrite Ql (U) Negative Normal NEGATIVE [facility] Comment on above: Performed By: #### U ACSIND #### [facility] [address] [address] [address] Adrianna Caldera pH (U) 5.5 [pH] Normal 5-9 [facility] Comment on above: Performed By: #### U ACSIND #### [facility] [address] [place] [address] Dr. Adrianna Caldera SPEC GRAVITY 1.010 Normal 1.005-<=1.0 25 [facility] Comment on above: Performed By: #### U ACSIND #### [facility] [address] [address] [address] Adrianna Caldera UA PROTEIN Negative Normal NEGATIVE/ TRACE [facility] Comment on above: Performed By: #### U ACSIND #### [facility] [address] [address] [address] Adrianna Caldera UR MICRO IND NOT INDICATED Normal [facility] Comment on above: Performed By: #### U ACSIND #### [facility] [address] [address] [address] Adrianna Caldera Urobilinogen Qn (U) 0.2 {Micheal'U}/dL Normal 0.2 - 1. 0 [facility] Comment on above: Performed By: #### U ACSIND #### [facility] [address] [address] [address] Adrianna Caldera US PREG GROWTHon 09-16-2022 [...] Age by EDC: 28 weeks 2 days MAUNEL by EDC: 12/07/2022 Age by US: 29 weeks 3 days MANUEL by US: 11/29/2022 IMPRESSION: 1. Single live intrauterine with growth detailed above. Electronically authenticated by: KAROL SIDDIQUI Date: 2022-09-16 15:19 Normal [facility] UA (CLEAN/CATCH) FLOORWORKER LASTING/MICRO I F IND.on 09-04-2022 Bilirubin Ql (U) Negative Normal NEGATIVE [facility] Comment on above: Performed By: #### U ACSIND ####[facility] [address] [address]DrAung Caldera Clarity (U) CLEAR Normal CLEAR [facility] Comment on above: Performed By: #### U ACSIND ####[facility] [address] [address]DrAung Caldera Color (U) LT. YELLOW Normal YELLOW [facility] Comment on above: Performed By: #### U ACSIND ####[facility] [address] [address]DrAung Caldera Glucose Ql (U) Negative Normal NEGATIVE The [facility] Comment on above: Performed By: #### U ACSIND ####[facility] [address] [address]Dr. Jemimabenito Werner Hemoglobin Ql (U) Negative Normal NEGATIVE The [facility] Comment on above: Performed By: #### U ACSIND ####[facility] [address] [place], [place] [address]Dr. Adrianna Caldera Ketones Ql (U) Negative Normal NEGATIVE The [facility] Comment on above: Performed By: #### U ACSIND ####[facility] [address] [place], [place] [address]Dr. Adrianna Caldera LEUKOCYTES Negative Normal NEGATIVE [facility] Comment on above: Performed By: #### U ACSIND ####[facility] [address] [place], [place] [address]Dr. Adrianna Caldera Nitrite Ql (U) Negative Normal NEGATIVE The [facility] Comment on above: Performed By: #### U ACSIND ####[facility] U[address]st[address] [place], [place] [address]Dr. Adrianna Caldera pH (U) 7.5 [pH] Normal 5-9 [facility] Comment on above: Performed By: #### U ACSIND ####[facility] [address] [place], [place] [address]Dr. Adrianna Caldera SPEC GRAVITY 1.010 Normal 1.005-<=1.0 25 [facility] Comment on above: Performed By: #### U ACSIND ####[facility] [address] [place], [place] [address]Dr. Adrianna Caldera UA PROTEIN Negative Normal NEGATIVE/ TRACE [facility] Comment on above: Performed By: #### U ACSIND ####[facility] [address] [place], [place] [address]Dr. Adrianna Caldera UR MICRO IND NOT INDICATED Normal [facility] Comment on above: Performed By: #### U ACSIND ####[facility] [address] [place], [place] [address]Dr. Adrianna Caldera Urobilinogen Qn (U) 0.2 {Micheal'U}/dL Normal 0.2 - 1. 0 [facility] Comment on above: Performed By: #### U ACSIND ####[facility] [address] [address]Dr. Adrianna Caldera GTT 3 HR PREGon 08-30-2022 Glucose [Mass/Vol] 88 mg/dL Normal 74-106 [facility] Comment on above: Performed By: #### G TT3P ####[facility] [address] [address]Dr. Adrianna Caldera Glucose [Mass/Vol] 167 mg/dL Normal The [facility] Comment on above: Performed By: #### G TT3P ####[facility] [address] [address]Dr. Adrianna Caldera Glucose [Mass/Vol] 136 mg/dL Normal [facility] Comment on above: Performed By: #### G TT3P ####[facility] [address] [place], [place] [address]Dr. Adrianna Caldera Glucose [Mass/Vol] 144 mg/dL Normal [facility] Comment on above: Performed By: #### G TT3P ####[facility] [address] [place], [place] [address]Dr. Adrianna Caldera US PREG PLACENTAon 3 US [...] KAROL SIDDIQUI Date: 2022-08-17 15:46 Normal [facility] CBC with Diffon 08-10-2022 Abs. Basophil 0.04 k/uL Normal 0.00-0.20 [facility] Comment on above: Performed By: #### L IP, CDP, CP #### [facility] [address] [place] [address] Statistician Applied: Cholo Alicea MD Abs.Imm.Granulocyte 0.10 k/uL Normal 0.00-0.30 [facility] Comment on above: Performed By: #### L IP CDP, CP #### [facility] [address] [place] [address] Dr. [place], [place] [id number] Statistician Applied: Cholo Alicea MD Abs.Neutrophil (Seg) 9.26 k/uL High 1.50-8.10 [facility] Comment on above: Performed By: #### L IP CDP, CP #### [address] [place] [address] Statistician Applied: Cholo Alicea MD Basophils/100 WBC (Bld) 0 % Normal 0-2 [facility] Comment on above: Performed By: #### L TATA LOPEZ, CP #### [address] [place], [facility] Statistician Applied: Cholo Alicea MD Eosinophils (Bld) [#/Vol] 0.05 10*3/uL Normal 0.00-0.44 [facility] Comment on above: Performed By: #### L TATA LOPEZ, CP #### [address] [place], [place] 9057883 Statistician Applied: Cholo Alicea MD Eosinophils/100 WBC (Bld) 0 % Low 1-4 [facility] Comment on above: Performed By: #### L TATA LOPEZ, CP #### [address] [place], [place] 24[address]883 Statistician Applied: Cholo Alicea MD Erythrocyte distribution width (RBC) [Ratio] 12.5 % Normal 11.8-14.4 [facility] Comment on above: Performed By: #### L IP CDP, CP #### [address] [place], [place] 1508983 Statistician Applied: Cholo Alicea MD Hematocrit (Bld) [Volume fraction] 35.2 % Low 36.3-47.1 [facility] Comment on above: Performed By: #### L IP CDP, CP #### [address] [place] [address] Statistician Applied: Cholo Alicea MD Hemoglobin (Bld) [Mass/Vol] 11.6 g/dL Low 11.9-15.1 [facility] Comment on above: Performed By: #### L IP, CDP, CP #### [address] [place], [place] 94[address]83 Statistician Applied: Cholo Alicea MD Immature granulocytes/100 WBC (Bld) 1 % High 0 [facility] Comment on above: Performed By: #### L IP CDP, CP #### [address] [place], [place] 469[address]83 Statistician Applied: Cholo Alicea MD Lymphocytes (Bld) [#/Vol] 1.99 10*3/uL Normal 1.10-3.70 [facility] Comment on above: Performed By: #### L TATA LOPEZ, CP #### [address] [place] [address] Statistician Applied: Cholo Alicea MD Lymphocytes/100 WBC (Bld) 17 % Low 24-43 [facility] Comment on above: Performed By: #### L TATA LOPEZ, CP #### [address] [place], [place] 0802183 Statistician Applied: Cholo Alicea MD MCH (RBC) [Entitic mass] 30.8 pg Normal 25.2-33.5 [facility] Comment on above: Performed By: #### L JESSICA CDP, CP #### [address] [place] [address] Statistician Applied: Cholo Alicae MD MCHC (RBC) [Mass/Vol] 33.0 g/dL Normal 28.4-34.8 [facility] Comment on above: Performed By: #### L IP, CDP, CP #### [facility] [address] [place], [place] [address] Statistician Applied: Cholo Alicea MD MCV (RBC) [Entitic vol] 93.4 fL Normal 82.6-102.9 [facility] Comment on above: Performed By: #### L IP, CDP, CP #### [address] [place], [place] [address] Statistician Applied: Cholo Alicea MD Monocytes (Bld) [#/Vol] 0.43 10*3/uL Normal 0.10-1.20 [facility] Comment on above: Performed By: #### L IP, CDP, CP #### [address] [place], [place] [address] Statistician Applied: Cholo Alicea MD Monocytes/100 WBC (Bld) 4 % Normal 3-12 [facility] Comment on above: Performed By: #### L IP, CDP, CP #### [address] [place], [facility]83 Statistician Applied: Cholo Alicea MD Neutrophil (Seg) 78 % High 36-65 [facility] Comment on above: Performed By: #### L IP, CDP, CP #### [address] [place], [place] [address] Statistician Applied: Cholo Alicea MD NRBC Automated 0.0 per 100 WBC Normal 0.0 [facility] Comment on above: Performed By: #### L IP, CDP, CP #### [address] [place], [facility]83 Statistician Applied: Cholo Alicea MD Platelet mean volume (Bld) [Entitic vol] 10.6 fL Normal 8.1-13.5 [facility] Comment on above: Performed By: #### L IP, CDP, CP #### [facility] [address] [place], [place] [address]83 Statistician Applied: Cholo Alicea MD Platelets (Bld) [#/Vol] 333 10*3/uL Normal 138-453 [facility] Comment on above: Performed By: #### L IP, CDP, CP #### [facility] [address] [place] [address] Statistician Applied: Cholo Alicea MD RBC (Bld) [#/Vol] 3.77 10*6/uL Low 3.95-5.11 [facility] Comment on above: Performed By: #### L IP, CDP, CP #### [facility] [address] [place] [address] Statistician Applied: Cholo Alicea MD WBC (Bld) [#/Vol] 11.9 10*3/uL High 3.5-11.3 [facility] Comment on above: Performed By: #### L IP, CDP, CP #### [facility] [address] [place], [place] 1853983 Statistician Applied: Cholo Alicea MD Glucose Andrae Scr 50gon 2022 Glucose [Mass/Vol] 161 mg/dL High 70-135 [facility] Comment on above: Performed By: #### L IP, CDP, CP #### [facility] [address] [place], [place] 4256683 Statistician Applied: Cholo Alicea MD Glu Administered via Glucola Normal [facility] Comment on above: Performed By: #### L IP, CDP, CP #### [facility] [address] 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 Adrianna Caldera Clarity (U) CLEAR Normal CLEAR [facility] Comment on above: Performed By: #### U ACSIND ####[facility] [address] [place], [place] [address]Dr. Adrianna Caldera Color (U) LT. YELLOW Normal YELLOW [facility] Comment on above: Performed By: #### U ACSIND ####[facility] [address] [place], [place] [address]Dr. Adrianna Caldera Glucose Ql (U) Negative Normal NEGATIVE The [facility] Comment on above: Performed By: #### U ACSIND ####[facility] [address] [place], [place] [address]Dr. Adrianna Caldera Hemoglobin Ql (U) Negative Normal NEGATIVE [facility] Comment on above: Performed By: #### U ACSIND ####[facility] Pb[address]eb[address] [place], [place] [address]Dr. Adrianna Caldera Ketones Ql (U) Negative Normal NEGATIVE The [facility] Comment on above: Performed By: #### U ACSIND ####[facility] [address] [place], [place] [address]Dr. Adrianna Caldera LEUKOCYTES Negative Normal NEGATIVE [facility] Comment on above: Performed By: #### U ACSIND ####[facility] [address] [place], [place] [address]Dr. Adrianna Caldera Nitrite Ql (U) Negative Normal NEGATIVE The [facility] Comment on above: Performed By: #### U ACSIND ####[facility] [address] [place], [place] [address]Dr. Adrianna Caldera pH (U) 7.0 [pH] Normal 5-9 [facility] Comment on above: Performed By: #### U ACSIND ####[facility] [address] [place], [place] [address]Dr. Adrianna Caldera SPEC GRAVITY 1.010 Normal 1.005-<=1.0 25 [facility] Comment on above: Performed By: #### U ACSIND ####[facility] [address] [place], [place] [address]Dr. Adrianna Caldera UA PROTEIN Negative Normal NEGATIVE/ TRACE [facility] Comment on above: Performed By: #### U ACSIND ####[facility] [address] [id number]. Adrianna Caldera UR MICRO IND NOT INDICATED Normal [facility] Comment on above: Performed By: #### U ACSIND ####[facility] [address] [address]Dr. Adrianna Caldera Urobilinogen Qn (U) 0.2 {Micheal'U}/dL Normal 0.2 - 1. 0 [facility] Comment on above: Performed By: #### U ACSIND ####[facility] [address] [id number]. Adrianna Caldera US PREG ANATOMY SINGLEon US [...] KAROL SIDDIQUI Date: 2022-07-21 16:41 Normal [facility] PAP ACOG PANEL 2: 21 to 29on 07-12-2022 . . Normal [facility] Comment on above: Performed By: #### 4 [id number] ####[facility] [address] [address]DrAung Caldera Age Gdln ACOG Testing - Normal [facility] Comment on above: Performed By: #### 4 [id number] ####[facility] [address] [address]DrAung Caldera DIAGNOSIS: Comment [facility] Comment on above: Result Comment: NEGA TIVE FOR INTRAEPITHELIAL LESION OR MALIGNANCY. Performed By: #### 4 [id number] ####[facility] [address] [place], [place] [address]DrAung Caldera Methodology: Comment Normal [facility] Comment on above: Result Comment: This liquid based ThinPrep(R) pap test was screened with the use of an image guided system. Performed By: #### 4 [id number] ####[facility] [address] [place], [place] [address]DrAung Caldera Note: Comment [facility] Comment on above: Result Comment: The Pap smear is a screening test designed to aid in the detection of premalignant and malignant conditions of the uterine cervix. It is not a diagnostic procedure and should not be used as the sole means of detecting cervical cancer. Both false-positive and false-negative reports do occur. . Performed By: #### 4 [id number] ####[facility] [address] [place], [place] [address]DrAung Caldera Performed by: Comment Normal [facility] Comment on above: Result Comment: [place] Yin, Central Sterilization Technician (ASCP) Performed By: #### 4 [id number] ####[facility] [address] [address]DrAung Caldera Reflex Criteria: Comment Normal [facility] Comment on above: Result Comment: The HPV DNA reflex criteria were not met with this specimen result therefore, no HPV testing was performed. . Performed By: #### 4 [id number] ####[facility] [address] [address]Dr. Adrianna Caldera Specimen adequacy: Comment Normal [facility] Comment on above: Result Comment: Sati sfactory for evaluation. No endocervical component is identified. Performed By: #### 4 [id number] ####[facility] [address] [address]Dr. Adrianna Caldera CHLAMYDIA/GONOCOCCUS ALEKSANDER (SW AB/URINE/PAPon 07-07-2022 Chlamydia trachomatis, ALEKSANDER Negative Normal Negative [facility] Comment on above: Performed By: #### C T/NGNA ####[facility] [address] [address]DrAung Caldera Neisseria gonorrhoeae, ALEKSANDER Negative Normal Negative [facility] Comment on above: Performed By: #### C T/NGNA ####[facility] [address] [address]Dr. Adrianna Caldera VAGINITIS/VAGINOSIS DNA PROB Scott 07-07-2022 Sherley species Negative Normal Negative [facility] Comment on above: Performed By: #### U ACSIND #### [facility] [address] [place] [address] Dr. Adrianna Caldera Gardnerella vaginalis Negative Normal Negative [facility] Comment on above: Performed By: #### U ACSIND #### [facility] [address] [place] [address] Dr. Adrianna Caldera Trichomonas vaginalis Negative Normal Negative [facility] Comment on above: Performed By: #### U ACSIND #### [facility] [address] [place] [address] Dr. Adrianna Caldera Cult,Urineon 07-02-2022 Cult,Urine Specimen Description .CLEAN CATCH URINE Culture NO SIGNIFICANT GROWTH Report Status FINAL 07/02/2022 Normal [facility] Comment on above: Performed By: #### L IP, CDP, CP #### [facility] [address] [place] [address] Statistician Applied: Cholo Alicea MD ABO/RHon 06-30-2022 ABO/Rh Negative [facility] ABO/Rh(D)on 06-30-2022 ABO/Rh(D) Negative Normal [facility] Comment on above: Performed By: #### L IP, CDP, CP #### [facility] [address] [place] [address] Statistician Applied: Cholo Alicea MD CBC with Auto Differentialon 06-30-2022 Absolute Eos # 0.06 [facility] Absolute Immature Granulocyte 0.07 [facility] Absolute Lymph # 2.91 [facility] Absolute [place] # 0.66 [facility] RS [facility] Basophils (Bld) [#/Vol] 0.04 10*3/uL [facility] Basophils/100 WBC (Bld) 0 % 0 - 2 % B ON [facility] Eosinophils/100 WBC (Bld) 1 % 1 - 4 % [facility] Hematocrit (Bld) [Volume fraction] 35.2 % Low 36.3 - 47.1 % [facility] Hemoglobin (Bld) [Mass/Vol] 11.9 g/dL 11.9 - 15.1 g/dL [facility] Immature granulocytes/100 WBC (Bld) 1 % High 0 [facility] Interpretation and review of laboratory results Abnormal [facility] Lymphocytes/100 WBC (Bld) 24 % 24 - 43 % [facility] MCH (RBC) [Entitic mass] 30.7 pg 25.2 - 33.5 pg [facility] MCHC (RBC) [Mass/Vol] 33.8 g/dL 28.4 - 34.8 g/dL [facility] MCV (RBC) [Entitic vol] 91.0 fL 82.6 - 102.9 fL [facility] Monocytes/100 WBC (Bld) 5 % 3 - 12 % B ON [facility] NRBC Automated 0.0 0.0 per 100 WBC [facility] Platelet distribution width (Bld) [Ratio] 12.2 % 11.8 - 14.4 % [facility] Platelet mean volume (Bld) [Entitic vol] 10.5 fL 8.1 - 13.5 fL [facility] Platelets (Bld) [#/Vol] 301 10*3/uL [facility] RBC (Bld) [#/Vol] 3.87 10*6/uL Low 3.95 - 5.1 1 m/uL [facility] Segmented neutrophils/100 WBC (Bld) 69 % High 36 - 65 % [facility] Segs Absolute 8.40 High [facility] WBC (Bld) [#/Vol] 12.1 10*3/uL High [facility] CBC with Diffon 06-30-2022 Abs. Basophil 0.04 k/uL Normal 0.00-0.20 [facility] Comment on above: Performed By: #### L TATA LOPEZ, CP #### [facility] [address] [place] [address] Dr. [place] [id number] Statistician Applied: Cholo Alicea MD Abs.Imm.Granulocyte 0.07 k/uL Normal 0.00-0.30 [facility] Comment on above: Performed By: #### L TATA LOPEZ, CP #### [address] [place] [address] Statistician Applied: Cholo Alicea MD Abs.Neutrophil (Seg) 8.40 k/uL High 1.50-8.10 [facility] Comment on above: Performed By: #### L TATA LOPEZ, CP #### [address] [place] [address] Statistician Applied: Cholo Alicea MD Basophils/100 WBC (Bld) 0 % Normal 0-2 [facility] Comment on above: Performed By: #### L IP CDP, CP #### [address] [place] [address] Statistician Applied: Cholo Alicea MD Eosinophils (Bld) [#/Vol] 0.06 10*3/uL Normal 0.00-0.44 [facility] Comment on above: Performed By: #### L IP, CDP, CP #### [address] [place], [place] 7357483 Statistician Applied: Cholo Alicea MD Eosinophils/100 WBC (Bld) 1 % Normal 1-4 [facility] Comment on above: Performed By: #### L IP, CDP, CP #### [address] [place] [address] Statistician Applied: Cholo Alicea MD Erythrocyte distribution width (RBC) [Ratio] 12.2 % Normal 11.8-14.4 [facility] Comment on above: Performed By: #### L IP, CDP, CP #### [address] [place], [facility] Statistician Applied: Cholo Alicea MD Hematocrit (Bld) [Volume fraction] 35.2 % Low 36.3-47.1 [facility] Comment on above: Performed By: #### L IP, CDP, CP #### [address] [place], [place] 697[address]83 Statistician Applied: Cholo Alicea MD Hemoglobin (Bld) [Mass/Vol] 11.9 g/dL Normal 11.9-15.1 [facility] Comment on above: Performed By: #### L IP, CDP, CP #### [address] [place], [place] 778[address]83 Statistician Applied: Cholo Alicea MD Immature granulocytes/100 WBC (Bld) 1 % High 0 [facility] Comment on above: Performed By: #### L IP, CDP, CP #### [address] [place], [place] 2189683 Statistician Applied: Cholo Alicea MD Lymphocytes (Bld) [#/Vol] 2.91 10*3/uL Normal 1.10-3.70 [facility] Comment on above: Performed By: #### L IP, CDP, CP #### [address] [place], [place] 7537183 Statistician Applied: Cholo Alicea MD Lymphocytes/100 WBC (Bld) 24 % Normal 24-43 [facility] Comment on above: Performed By: #### L IP, CDP, CP #### [address] [place], [place] 6085583 Statistician Applied: Cholo Alicea MD MCH (RBC) [Entitic mass] 30.7 pg Normal 25.2-33.5 [facility] Comment on above: Performed By: #### L IP, CDP, CP #### [address] [place], [facility]83 Statistician Applied: Cholo Alicea MD MCHC (RBC) [Mass/Vol] 33.8 g/dL Normal 28.4-34.8 [facility] Comment on above: Performed By: #### L TATA LOPEZ, CP #### [address] [place], [place] 037[address]83 Statistician Applied: Cholo Alicea MD MCV (RBC) [Entitic vol] 91.0 fL Normal 82.6-102.9 M [facility] Comment on above: Performed By: #### L IP, CDP, CP #### [address] [place], [place] 4903983 Statistician Applied: Cholo Alicea MD Monocytes (Bld) [#/Vol] 0.66 10*3/uL Normal 0.10-1.20 [facility] Comment on above: Performed By: #### L IP, CDP, CP #### [address] [place] [address] Statistician Applied: Cholo Alicea MD Monocytes/100 WBC (Bld) 5 % Normal 3-12 M [facility] Comment on above: Performed By: #### L IP, CDP, CP #### [facility] [address] [place], [place] [address] Statistician Applied: Cholo Alicea MD Neutrophil (Seg) 69 % High 36-65 [facility] Comment on above: Performed By: #### L IP, CDP, CP #### [facility] [address] [place], [facility]83 Statistician Applied: Cholo Alicea MD NRBC Automated 0.0 per 100 WBC Normal 0.0 [facility] Comment on above: Performed By: #### L IP, CDP, CP #### [address] [place], [facility]83 Statistician Applied: Cholo Alicea MD Platelet mean volume (Bld) [Entitic vol] 10.5 fL Normal 8.1-13.5 [facility] Comment on above: Performed By: #### L IP, CDP, CP #### [address] [place], [place] [id number] Statistician Applied: Cholo Alicea MD Platelets (Bld) [#/Vol] 301 10*3/uL Normal 138-453 [facility] Comment on above: Performed By: #### L IP, CDP, CP #### [address] [place], [place] [address] Statistician Applied: Cholo Alicea MD RBC (Bld) [#/Vol] 3.87 10*6/uL Low 3.95-5.11 [facility] Comment on above: Performed By: #### L IP, CDP, CP #### [address] [place], [place] [id number] Statistician Applied: Cholo Alicea MD WBC (Bld) [#/Vol] 12.1 10*3/uL High 3.5-11.3 [facility] Comment on above: Performed By: #### L IP, CDP, CP #### [facility] [address] [place] [address] Statistician Applied: Cholo Alicea MD [facility] Albumin [Mass/Vol] 3.6 g/dL 3.5 - 5.2 g/dL [facility] Albumin/Globulin [Mass ratio] 1.1 {ratio} 1.0 - 2.5 [facility] ALP [Catalytic activity/Vol] 74 U/L 35 - 104 U/L [facility] ALT [Catalytic activity/Vol] 9 U/L 5 - 33 U/L [facility] Anion gap [Moles/Vol] 13 mmol/L 9 - 17 mmol/L [facility] AST [Catalytic activity/Vol] 18 U/L NINF - 32 U/L [facility] Bilirubin [Mass/Vol] mg/dL Low 0.3 - 1 .2 mg/dL [facility] Calcium [Mass/Vol] 9.5 mg/dL 8.6 - 10. 4 mg/dL [facility] Chloride [Moles/Vol] 101 mmol/L 98 - 10 7 mmol/L [facility] CO2 [Moles/Vol] 21 mmol/L 20 - 31 mmol/L [facility] Creatinine [Mass/Vol] 0.55 mg/dL 0.50 - 0.90 mg/dL [facility] GFR/1.73 sq M.predicted MDRD (S/P/Bld) [Vol rate/Area] - PINF [facility] Comment on above: These results are [...] [Mass/Vol] 84 mg/dL 70 - 99 mg/dL [facility] Interpretation and review of laboratory results Abnormal [facility] Potassium [Moles/Vol] 3.8 mmol/L 3.7 - 5.3 mmol/L [facility] Protein [Mass/Vol] 6.9 g/dL 6.4 - 8.3 g/dL [facility] Sodium [Moles/Vol] 135 mmol/L 135 - 144 mmol/L [facility] Urea nitrogen [Mass/Vol] 8 mg/dL 6 - 20 mg/dL [facility] Urea nitrogen/Creatinine (Bld) [Mass ratio] 15 9 - 20 [facility] Comp Metabolic Profon 2022 Bilirubin [Mass/Vol] mg/dL Low 0.3-1.2 [facility] Comment on above: Performed By: #### L IP, CDP, CP #### [facility] [address] [place] [address] Statistician Applied: Cholo Alicea MD Albumin [Mass/Vol] 3.6 g/dL Normal 3.5-5.2 [facility] Comment on above: Performed By: #### L IP, CDP, CP #### [facility] [address] [place] [address] [place] [address] Statistician Applied: Cholo Alicea MD Albumin/Glob Ratio 1.1 Normal 1.0-2.5 [facility] Comment on above: Performed By: #### L IP, CDP, CP #### [facility] [address] [place] [address] Statistician Applied: Cholo Alicea MD Alkaline Phos 74 U/L Normal 35-104 [facility] Comment on above: Performed By: #### L IP, CDP, CP #### [facility] [address] [place] [address] Statistician Applied: Cholo Alicea MD ALT [Catalytic activity/Vol] 9 U/L Normal 5-33 [facility] Comment on above: Performed By: #### L IP, CDP, CP #### [facility] [address] [place], [place] 3989783 Statistician Applied: Cholo Alicea MD Anion gap [Moles/Vol] 13 mmol/L Normal 9-17 [facility] Comment on above: Performed By: #### L IP, CDP, CP #### [facility] [address] [place], [place] 8[address]83 Statistician Applied: Cholo Alicea MD AST [Catalytic activity/Vol] 18 U/L Normal <32 [facility] Comment on above: Performed By: #### L IP, CDP, CP #### [facility] [address] [place], [place] [id number] Statistician Applied: Cholo Alicea MD BUN/CRE Ratio 15 Normal 9-20 [facility] Comment on above: Performed By: #### L IP, CDP, CP #### [facility] [address] [place], [place] [id number] Statistician Applied: Cholo Alicea MD Calcium [Mass/Vol] 9.5 mg/dL Normal 8.6-10.4 [facility] Comment on above: Performed By: #### L IP, CDP, CP #### [facility] [address] [place], [place] [id number] Statistician Applied: Cholo Alicea MD Chloride [Moles/Vol] 101 mmol/L Normal 98-107 [facility] Comment on above: Performed By: #### L IP, CDP, CP #### [facility] [address] [place], [place] [id number] Statistician Applied: Cholo Alicea MD CO2 [Moles/Vol] 21 mmol/L Normal 20-31 [facility] Comment on above: Performed By: #### L IP, CDP, CP #### [facility] [address] [place] [address] Statistician Applied: Cholo Alicea MD Creatinine [Mass/Vol] 0.55 mg/dL Normal 0.50-0.90 [facility] Comment on above: Performed By: #### L IP CDP, CP #### [facility] [address] [place] [address] Statistician Applied: Cholo Alicea MD GFR/1.73 sq M.predicted among non-blacks MDRD (S/P/Bld) [Vol rate/Area] mL/min/{1.73_m2} Normal >60 [facility] Comment on above: Result Comment: These [...] renal tubular secretion. Performed By: #### L IP CDP, CP #### [facility] [address] [place] [address] Statistician Applied: Cholo Alicea MD Glucose [Mass/Vol] 84 mg/dL Normal 70-99 [facility] Comment on above: Performed By: #### L TATA LOPEZ, CP #### [facility] [address] [place] [address] Statistician Applied: Cholo Alicea MD Potassium [Moles/Vol] 3.8 mmol/L Normal 3.7-5.3 [facility] Comment on above: Performed By: #### L IP CDP, CP #### [facility] [address] [place] [address] Statistician Applied: Cholo Alicea MD Protein [Mass/Vol] 6.9 g/dL Normal 6.4-8.3 [facility] Comment on above: Performed By: #### L IP, CDP, CP #### [facility] [address] [place] [address] Statistician Applied: Cholo Alicea MD Sodium [Moles/Vol] 135 mmol/L Normal 135-144 [facility] Comment on above: Performed By: #### L TATA LOPEZ, CP #### [facility] [address] [place] [address] Statistician Applied: Cholo Alicea MD Urea nitrogen [Mass/Vol] 8 mg/dL Normal 6-20 [facility] Comment on above: Performed By: #### L TATA LOPEZ, CP #### [facility] [address] [place] [address] Statistician Applied: Cholo Alicea MD Lipaseon 0 Lipase [Catalytic activity/Vol] 30 U/L Normal 13-60 [facility] Comment on above: Performed By: #### L TTAA LOPEZ, CP #### [facility] [address] [place] [address] Statistician Applied: Cholo Alicea MD Lipase [Catalytic activity/Vol] 30 U/L 13 - 60 U/L [facility] Microscopic Urinalysison Bacteria, UA 2+ Abnormal None [facility] Epithelial Cells UA 0 TO 2 [facility] Interpretation and review of laboratory results Abnormal [facility] Mucus, UA 3+ Abnormal None [facility] RBC clumps Auto (Urine sed) [#/Area] 0 TO 2 [facility] WBC, UA 0 TO 2 [facility] PTon 06-30-2022 INR Coag (PPP) [Relative time] 1.0 {INR} Normal [facility] Comment on above: Result Comment: Therapeutic Range: Moderate Anticoagulant Intensity: INR = 2.0-3.0 High Anticoagulant Intensity: INR = 2.5-3.5 Performed By: #### L TATA LOPEZ, CP #### [facility] [address] [place] [address] Statistician Applied: Cholo Alicea MD PT Coag (PPP) [Time] 13.3 s Normal 11.5-14.2 [facility] Comment on above: Performed By: #### L IP, CDP, CP #### [facility] [address] [place] [address] Statistician Applied: Cholo Alicea MD Protime-INRon 4 INR Coag (PPP) [Relative time] 1.0 {INR} [facility] Comment on above: Therapeutic Range: Moderate Anticoagulant Intensity: INR = 2.0-3.0 High Anticoagulant Intensity: INR = 2.5-3.5 PT Coag (PPP) [Time] 13.3 s [facility] UA w/Reflex Cultureon 2022 Bilirubin, SemiQt,Ur Negative Normal NEG [facility] Comment on above: Performed By: #### U MICAO, UAX #### [facility] [address] [place] [address] Statistician Applied: Cholo Alicea MD Blood, Urine Negative Normal NEG [facility] Comment on above: Performed By: #### U MICAO, UAX #### [facility] [address] [place] [address] Statistician Applied: Cholo Alicea MD Clarity (U) Clear Normal CLEAR [facility] Comment on above: Performed By: #### U MICAO, UAX #### [facility] [address] [place] [address] Statistician Applied: Cholo Alicea MD Color (U) Yellow Normal YEL [facility] Comment on above: Performed By: #### U MICAO, UAX #### [facility] [address] [place] [address] Statistician Applied: Cholo Alicea MD Glucose Ql (U) Negative Normal NEG [facility] Comment on above: Performed By: #### U MICAO, UAX #### [facility] [address] [place] [address] Statistician Applied: Cholo Alicea MD Ketones Ql (U) Negative Normal NEG [facility] Comment on above: Performed By: #### U MICAO, UAX #### [facility] [address] [place] [address] Dr[place], [place] [id number] Statistician Applied: Cholo Alicea MD Leukocyte esterase Test strip Ql (U) Negative Normal NEG [facility] Comment on above: Performed By: #### U MICAO, UAX #### [facility] [address] [place] [address] [place] [address] Statistician Applied: Cholo Alicea MD Nitrite,Ur Negative Normal NEG [facility] Comment on above: Performed By: #### U MICAO, UAX #### [facility] [address] [place] [address] Dr[place], [place] [id number] Statistician Applied: Cholo Alicea MD PH,Ur 6.0 Normal 5.0-9.0 [facility] Comment on above: Performed By: #### U MICAO, UAX #### [facility] [address] [place] [address] [place] [address] Statistician Applied: Cholo Alicea MD Protein Ql (U) Negative Normal NEG [facility] Comment on above: Performed By: #### U MICAO, UAX #### [facility] [address] [place] [address] [place], [place] [id number] Statistician Applied: Cholo Alicea MD Spec. Peck,Ur 1.025 High 1.010-1.[address] [facility] Comment on above: Performed By: #### U MICAO, UAX #### [facility] [address] [place] [address] [place] [address] Statistician Applied: Cholo Alicea MD Urobilinogen,Ur Normal Normal NORM [facility] Comment on above: Performed By: #### U MICAO, UAX #### [facility] [address] [place] [address] [place] [address] Statistician Applied: Cholo Alicea MD Urinalysis with Reflex to Cu ltureon 06-30-2022 Bilirubin Urine Negative NEGATIVE [facility] Color, UA Yellow Yellow [facility] Glucose Auto test strip (U) [Mass/Vol] Negative NEGATIVE [facility] Interpretation and review of laboratory results Abnormal [facility] Ketones (U) [Mass/Vol] Negative NEGATIVE [facility] Leukocyte esterase Auto test strip Ql (U) Negative NEGATIVE [facility] Nitrite Auto test strip Ql (U) Negative NEGATIVE [facility] Protein (U) [Mass/Vol] 6.0 mg/dL 5.0 - 9.[address] [facility] Protein (U) [Mass/Vol] Negative NEGATIVE [facility] Specific Peck, UA 1.025 High 1.010 - 1.020 [facility] Turbidity UA Clear Clear [facility] Urine Hgb Negative NEGATIVE [facility] Urobilinogen, Urine Normal Normal [facility] Urinalysis,Microon 3 Bacteria 2+ Abnormal [facility] Comment on above: Performed By: #### U DAHLIAO UAX #### [facility] [address] [place] [address] Statistician Applied: Cholo Alicea MD Epithelial cells LM Ql (Urine sed) 0 TO 2 Normal 0-25 [facility] Comment on above: Performed By: #### U DAHLIAO, UAX #### [facility] [address] [place], [facility] Statistician Applied: Cholo Alicea MD Mucus Strands 3+ Abnormal [facility] Comment on above: Performed By: #### U MICAO, UAX #### [facility] [address] [place] [address] Statistician Applied: Cholo Alicea MD Urine RBC's 0 TO 2 Normal 0-2 [facility] Comment on above: Performed By: #### U MICAO, UAX #### [facility] [address] [place] [address] Statistician Applied: Cholo Alicea MD Urine WBC's 0 TO 2 Normal 0-5 [facility] Comment on above: Performed By: #### U MICAO, UAX #### [facility] [address] [place] [address] Statistician Applied: Cholo Alicea MD No Panel Informationon 06-17 Body mass index (BMI) [Percentile] Per age and sex 0.1 {percentile} Invalid Interpretation Code Visier [id number] Per age and sex 0.1 {percentile} Invalid Interpretation Code Visier HEP B SURFACE ANTIGEN SCREEN on 06-08-2022 HBsAg Screen Negative Normal Negative [facility] Comment on above: Performed By: #### U ACSIND #### [facility] [address] [place] [address] Dr. Adrianna Caldera HEPATITIS C VIRUS AB W/ REFL EX QUANTon 06-08-2022 HCV AB <0.1 Normal 0.0-0.9 [facility] Comment on above: Performed By: #### U ACSIND #### [facility] [address] [place] [address] Dr. Adrianna Caldera Interpretation: Comment Normal [facility] Comment on above: Result Comment: Nega tive Not infected with HCV, unless recent infection is suspected or other evidence exists to indicate HCV infection. Performed By: #### U ACSIND #### [facility] [address] [place] [address] Dr. Adrianna Caldera HIV 1 AND 2 WITH REFLEXon HIV Screen 4th Generation wRfx Non-Reactive Normal Non Reactive [facility] Comment on above: Result Comment: HIV Negative HIV-1/HIV-2 antibodies and HIV-1 p24 antigen were NOT detected. There is no laboratory evidence of HIV infection. Performed By: #### U ACSIND #### [facility] [address] [place] [address] Dr. Adrianna Caldera RPR QUANTon 06-08-2022 Rapid Plasma Reagin, Quant Non-Reactive Normal NonRea<1:1 [facility] Comment on above: Result Comment: Janet richards Note: This test does not meet current guidelines for screening and diagnosis of syphilis. This test is intended for following treatment response in patients being treated for syphilis infection. To screen for syphilis infection, a reflex cascade that includes both RPR and a treponema-specific assay should be utilized, such as Treponema pallidum (Syphilis) Screening [place] (338818) or Rapid Plasma Reagin (RPR) Test With Reflex to Quantitative RPR and Confirmatory Treponema pallidum Antibodies (886103). Performed By: #### U ACSIND #### [facility] [address] [place] [address] Dr. Adrianna Caldera RUBELLA AB IGGon 06-08-2022 Rubella Antibodies, IgG 4.69 index Normal Immu ne >0.99 [facility] Comment on above: Result Comment: Non- immune <0.90 Equivocal 0.90 - 0.99 Immune >0.99 Performed By: #### R UBIGG ####[facility] [id number] [place] [address]Dr. Adrianna Caldear CBC AUTO DIFFon 06-05-2022 BASO # 0.0 103/ul Normal 0.0-0.1 [facility] Comment on above: Performed By: #### C BC #### [facility] [address] [place] [address] Dr. Adrianna Caldera Basophils/100 WBC (Bld) 0.3 % Normal 0.2-2.0 [facility] Comment on above: Performed By: #### C BC #### [facility] [address] [place] [address] Dr. Adrianna Caldera EO # 0.1 103/ul Normal 0.0-0.7 [facility] Comment on above: Performed By: #### C BC #### [facility] [address] [place] [address] Dr. Adrianna Caldera Eosinophils/100 WBC (Bld) 0.6 % Critically low 0.9-7.0 [facility] Comment on above: Performed By: #### C BC #### [facility] [address] [place] [address] [address] Adrianna Caldera Erythrocyte distribution width (RBC) [Ratio] 11.7 % Normal 11.0-15.0 [facility] Comment on above: Performed By: #### C BC #### [facility] [address] [place] [address] Dr. Adrianna Caldera Hematocrit (Bld) [Volume fraction] 33.8 % Critically low 36.0-48.0 [facility] Comment on above: Performed By: #### C BC #### [facility] [address] [place] [address] Dr. Adrianna Caldera Hemoglobin (Bld) [Mass/Vol] 12.6 g/dL Normal 12.0-16.0 [facility] Comment on above: Performed By: #### C BC #### [facility] [address] [place] [address] Dr. Adrianna Caldera IG # 0.05 10e3/ul Critically high 0.00-0.03 [facility] Comment on above: Performed By: #### C BC #### [facility] [address] [place] [address] Dr. Adrianna Caldera IG % 0.4 % Normal 0.0-0.5 [facility] Comment on above: Performed By: #### C BC #### [facility] [address] [place] [address] Dr. Adrianna Caldera LYMPH # 2.4 103/ul Normal 1.2-3.8 [facility] Comment on above: Performed By: #### C BC #### [facility] [address] [place] [address] Dr. Adrianna Caldera Lymphocytes/100 WBC (Bld) 21.1 % Normal 20.5-60.0 [facility] Comment on above: Performed By: #### C BC #### [facility] [address] [place] [address] Dr. Adrianna Caldera MANUAL DIFF REQ NO Normal [facility] [place] [facility] Comment on above: Performed By: #### C BC #### [facility] [address] [place] [address] [address] Adrianna Caldera MCH (RBC) [Entitic mass] 30.3 pg Normal 26.7-34.0 [facility] Comment on above: Performed By: #### C BC #### [facility] [address] [place] [address] Dr. Adrianna Caldera MCHC (RBC) [Mass/Vol] 37.3 g/dL Critically high 29.9-35.2 [facility] Comment on above: Performed By: #### C BC #### [facility] [address] [place] [address] Dr. Adrianna Caldera MCV (RBC) [Entitic vol] 81.3 fL Normal 81.0-99.0 [facility] Comment on above: Performed By: #### C BC #### [facility] [address] [place] [address] Dr. Adrianna Caldera MONO # 0.6 103/ul Normal 0.3-0.8 [facility] Comment on above: Performed By: #### C BC #### [facility] [address] [place] [address] Dr. Adrianna Caldera Monocytes/100 WBC (Bld) 5.4 % Normal 1.7-12.0 [facility] Comment on above: Performed By: #### C BC #### [facility] [address] [place] [address] Dr. Adrianna Caldera NEUT # 8.3 103/ul Critically high 1.4-6.5 [facility] [place] [facility] Comment on above: Performed By: #### C BC #### [facility] [address] [place] [address] Dr. Adrianna Caldera Neutrophils/100 WBC (Bld) 72.2 % Normal 43.0-75.0 [facility] Comment on above: Performed By: #### C BC #### [facility] [address] [place] [address] Dr. Adrianna Caldera Platelet mean volume (Bld) [Entitic vol] 10.6 fL Normal 9.5-13.5 [facility] Comment on above: Performed By: #### C BC #### [facility] [address] [place], [place] [address] Dr. Adrianna Caldera PLT 253 103/ul Normal 150-450 [facility] Comment on above: Performed By: #### C BC #### [facility] [address] [place] [id number] Adrianna Caldera RBC 4.16 106/ul Critically low 4.20-5.40 [facility] Comment on above: Performed By: #### C BC #### [facility] [address] [place] [address] [address] Adrianna Caldera WBC 11.6 103/ul Critically high 4.0-11.0 [facility] Comment on above: Performed By: #### C BC #### [facility] [address] [place] [address] [address] Adrianna Caldera CULTURE URINEon 06-05-2022 CULTURE URINE Culture Observations: LIGHT GROWTH OF MIXED GENITAL JIGAR. NO POTENTIAL PATHOGENS SEEN. Normal [facility] Comment on above: Performed By: #### U RCX ####[facility] [id number] [place] [address]Dr. Adrianna Caldera GLYCOHEMOGLOBIN A1Con 2022 ADA RECOMMENDATION SEE BELOW Normal [facility] Comment on above: Result Comment: ADA RECOMMENDED LIMIT 4.0 - 6.0 ADA THERAPEUTIC TARGET < 7.0 ACTION SUGGESTED > 7.0 Performed By: #### P REGQNT #### [facility] [address] [place] [address] [address] Adrianna Caldera Glucose [Mass/Vol] 105 mg/dL Normal [facility] Comment on above: Performed By: #### P REGQNT #### [facility] [address] [place] [address] [address] Adrianna Caldera HbA1c (Bld) [Mass fraction] 5.3 % Normal 4.5-6.2 [facility] Comment on above: Performed By: #### P REGQNT #### [facility] [address] [place] [address] [address] Adrianna Caldera TYPE AND SCREENon 06-05-2022 TYPE AND SCREEN Negative Normal [facility] Comment on above: Performed By: #### T NS ####[facility] [id number] [place], [place] [address]SeDr. Adrianna Caldera US PREG <14 WKSon 05-27-2022 [...] GOVIND JOHNSTON Date: 2022-05-26 22:31 Normal [facility] CBC AUTO DIFFon 05-26-2022 BASO # 0.1 103/ul Normal 0.0-0.1 [facility] Comment on above: Performed By: #### U ACSIND #### [facility] [address] [place], [place] [address] Dr. Adrianna Caldera Basophils/100 WBC (Bld) 0.5 % Normal 0.2-2.0 [facility] Comment on above: Performed By: #### U ACSIND #### [facility] [address] [place] [address] [address] Adrianna Caldera EO # 0.1 103/ul Normal 0.0-0.7 [facility] Comment on above: Performed By: #### U ACSIND #### [facility] [address] [address] [address] Adrianna Caldera Eosinophils/100 WBC (Bld) 0.5 % Critically low 0.9-7.0 [facility] Comment on above: Performed By: #### U ACSIND #### [facility] [address] [address] [address] Adrianna Caldera Erythrocyte distribution width (RBC) [Ratio] 11.9 % Normal 11.0-15.0 [facility] Comment on above: Performed By: #### U ACSIND #### [facility] [address] [place] [address] Dr. Adrianna Caldera Hematocrit (Bld) [Volume fraction] 37.5 % Normal 36.0-48.0 [facility] Comment on above: Performed By: #### U ACSIND #### [facility] [address] [place] [address] Dr. Adrianna Caldera Hemoglobin (Bld) [Mass/Vol] 12.8 g/dL Normal 12.0-16.0 [facility] Comment on above: Performed By: #### U ACSIND #### [facility] [address] [place] [address] Dr. Adrianna Caldera IG # 0.04 10e3/ul Critically high 0.00-0.03 [facility] Comment on above: Performed By: #### U ACSIND #### [facility] [address] [address] [address] Adrianna Caldera IG % 0.4 % Normal 0.0-0.5 [facility] Comment on above: Performed By: #### U ACSIND #### [facility] [address] [address] [address] Adrianna Caldera LYMPH # 3.0 103/ul Normal 1.2-3.8 [facility] Comment on above: Performed By: #### U ACSIND #### [facility] [address] [address] [address] Adrianna Caldera Lymphocytes/100 WBC (Bld) 27.0 % Normal 20.5-60.0 [facility] Comment on above: Performed By: #### U ACSIND #### [facility] [address] [address] [address] Adrianna Caldera MANUAL DIFF REQ NO Normal [facility] Comment on above: Performed By: #### U ACSIND #### [facility] [address] [address] [address] Adrianna Caldera MCH (RBC) [Entitic mass] 29.8 pg Normal 26.7-34.0 [facility] Comment on above: Performed By: #### U ACSIND #### [facility] [address] [place] [address] Dr. Adrianna Caldera MCHC (RBC) [Mass/Vol] 34.1 g/dL Normal 29.9-35.2 [facility] Comment on above: Performed By: #### U ACSIND #### [facility] [address] [place] [address] Dr. Adrianna Caldera MCV (RBC) [Entitic vol] 87.4 fL Normal 81.0-99.0 [facility] Comment on above: Performed By: #### U ACSIND #### [facility] [address] [place] [address] Dr. Adrianna Caldera MONO # 0.7 103/ul Normal 0.3-0.8 [facility] Comment on above: Performed By: #### U ACSIND #### [facility] [address] [place] [address] Dr. Adrianna Caldera Monocytes/100 WBC (Bld) 6.3 % Normal 1.7-12.0 [facility] Comment on above: Performed By: #### U ACSIND #### [facility] [address] [address] [address] Adrianna Caldera NEUT # 7.2 103/ul Critically high 1.4-6.5 [facility] Comment on above: Performed By: #### U ACSIND #### [facility] [address] [address] [address] Adrianna Caldera Neutrophils/100 WBC (Bld) 65.3 % Normal 43.0-75.0 [facility] Comment on above: Performed By: #### U ACSIND #### [facility] [address] [address] [address] Adrianna Caldera Platelet mean volume (Bld) [Entitic vol] 10.3 fL Normal 9.5-13.5 [facility] Comment on above: Performed By: #### U ACSIND #### [facility] [address] [address] [address] Adrianna Caldera PLT 316 103/ul Normal 150-450 [facility] Comment on above: Performed By: #### U ACSIND #### [facility] [address] [place] [address] Dr. Adrianna Caldera RBC 4.29 106/ul Normal 4.20-5.40 [facility] Comment on above: Performed By: #### U ACSIND #### [facility] [address] [address] [address] Adrianna Caldera WBC 11.0 103/ul Normal 4.0-11.0 [facility] Comment on above: Performed By: #### U ACSIND #### [facility] [address] [place] [address] ABD/PELV W CONon [...] ISIDRO AVILA Date: 2022-05-26 19:39 Normal [facility] SARS-CoV-2 (COVID-19) RNA ALEKSANDER+probe Ql (Unsp spec) Not detected Normal NOT DETECTED [facility] Comment on above: Result Comment: When diagnostic [...] for this test is supported by the [place] of Health and Human Service's declaration that [...] used). Performed By: #### U ACSIND #### [facility] [address] [place] [address] Dr. Adrianna Caldera ER URINE PROFILEon 2 Bilirubin Ql (U) Negative Normal NEGATIVE [facility] Comment on above: Performed By: #### P REGQNT #### [facility] [address] [address] [address] Adrianna Caldera Clarity (U) CLEAR Normal CLEAR [facility] Comment on above: Performed By: #### P REGQNT #### [facility] [address] [address] [address] Adrianna Caldera Color (U) YELLOW Normal YELLOW [facility] Comment on above: Performed By: #### P REGQNT #### [facility] [address] [place] [address] Dr. Adrianna LINARES A micrscopic examination will be performed if indicated. Normal [facility] Comment on above: Performed By: #### P REGQNT #### [facility] [address] [place] [address] Dr. Adrianna Caldera Glucose Ql (U) Negative Normal NEGATIVE [facility] Comment on above: Performed By: #### P REGQNT #### [facility] [address] [place] [address] Dr. Adrianna Caldera Hemoglobin Ql (U) Negative Normal NEGATIVE [facility] Comment on above: Performed By: #### P REGQNT #### [facility] [address] [place] [address] Dr. Adrianna Caldera Ketones Ql (U) 15 mg/dl Abnormal NEGATIVE [facility] Comment on above: Performed By: #### P REGQNT #### [facility] [address] [place] [address] Dr. Adrianna Caldera LEUKOCYTES Negative Normal NEGATIVE [facility] Comment on above: Performed By: #### P REGQNT #### [facility] [address] [place] [address] Dr. Adrianna Caldera Nitrite Ql (U) Negative Normal NEGATIVE [facility] Comment on above: Performed By: #### P REGQNT #### [facility] [address] [place] [address] Dr. Adrianna Caldera pH (U) 7.5 [pH] Normal 5-9 [facility] Comment on above: Performed By: #### P REGQNT #### [facility] [address] [place] [address] Dr. Adrianna Caldera SPEC GRAVITY 1.020 Normal 1.005-<=1.0 25 [facility] Comment on above: Performed By: #### P REGQNT #### [facility] [address] [address] [address] Adrianna Caldera UA PROTEIN Negative Normal NEGATIVE/ TRACE [facility] Comment on above: Performed By: #### P REGQNT #### [facility] [address] [address] [address] Adrianna Caldera UR MICRO IND NOT INDICATED Normal [facility] Comment on above: Performed By: #### P REGQNT #### [facility] [address] [address] [address] Adrianna Caldera Urobilinogen Qn (U) 0.2 {Micheal'U}/dL Normal 0.2 - 1. 0 [facility] Comment on above: Performed By: #### P REGQNT #### [facility] [address] [place] [address] Dr. Adrianna Caldera LIPASEon 05-26-2022 Lipase [Catalytic activity/Vol] 116.0 U/L Normal 73.0-393.0 [facility] Comment on above: Performed By: #### L IPA, CMP #### [facility] [address] [place] [address] Dr. Adrianna Caldera PROF 14(COMP METB)on 022 Albumin [Mass/Vol] 3.6 g/dL Normal 3.4-5.0 [facility] Comment on above: Performed By: #### L IPA, CMP #### [facility] [address] [place] [address] Dr. Adrianna Caldera Albumin/Globulin [Mass ratio] 0.9 {ratio} Normal [facility] Comment on above: Performed By: #### L IPA, CMP #### [facility] [address] [place] [address] Dr. Adrianna Caldera ALP [Catalytic activity/Vol] 57 U/L Normal 46-116 [facility] Comment on above: Performed By: #### L IPA, CMP #### [facility] [address] [place] [address] Dr. Adrianna Caldera ALT [Catalytic activity/Vol] 13 U/L Critically low 14-59 [facility] Comment on above: Performed By: #### L IPA, CMP #### [facility] [address] [address] [address] Adrianna Caldera Anion gap [Moles/Vol] 10.6 mmol/L Normal [facility] Comment on above: Performed By: #### L IPA, CMP #### [facility] [address] [address] [address] Adrianna Caldera AST [Catalytic activity/Vol] 12 U/L Critically low 15-37 [facility] Comment on above: Performed By: #### L IPA, CMP #### [facility] [address] [address] [address] Adrianna Caldera Bilirubin [Mass/Vol] 0.2 mg/dL Normal 0.2-1.0 [facility] Comment on above: Performed By: #### L IPA, CMP #### [facility] [address] [address] [address] Adrianna Caldera Calcium [Mass/Vol] 8.9 mg/dL Normal 8.5-10.1 [facility] Comment on above: Performed By: #### L IPA, CMP #### [facility] [address] [address] [address] Adrianna Caldera Chloride [Moles/Vol] 102 mmol/L Normal 98-107 [facility] Comment on above: Performed By: #### L IPA, CMP #### [facility] [address] [address] [address] Adrianna Caldera CO2 [Moles/Vol] 26.0 mmol/L Normal 21.0-32.0 [facility] Comment on above: Performed By: #### L IPA, CMP #### [facility] [address] [address] [address] Adrianna Caldera Creatinine [Mass/Vol] 0.61 mg/dL Normal 0.55-1.02 [facility] Comment on above: Performed By: #### L IPA, CMP #### [facility] [address] [address] [address] Adrianna Caldera EGFR-AF TOGOLESE >60 Normal >=60 [facility] Comment on above: Performed By: #### L IPA, CMP #### [facility] [address] [address] [address] Adrianna Caldera EGFR-NON AF TOGOLESE >60 Normal >=60 [facility] Comment on above: Performed By: #### L IPA, CMP #### [facility] [address] [address] [address] Adrianna Caldera Globulin (S) [Mass/Vol] 3.8 g/dL Normal [facility] Comment on above: Performed By: #### L IPA, CMP #### [facility] [address] [address] [address] Adrianna Caldera Glucose [Mass/Vol] 82 mg/dL Normal 74-106 [facility] Comment on above: Performed By: #### L IPA, CMP #### [facility] [address] [address] [address] Adrianna Caldera Potassium [Moles/Vol] 3.6 mmol/L Normal 3.5-5.1 [facility] Comment on above: Performed By: #### L IPA, CMP #### [facility] [address] [address] [address] Adrianna Caldera Protein [Mass/Vol] 7.4 g/dL Normal 6.4-8.2 [facility] Comment on above: Performed By: #### L IPA, CMP #### [facility] [address] [address] [address] Adrianna Caldera Sodium [Moles/Vol] 135 mmol/L Critically low 136-145 [facility] Comment on above: Performed By: #### L IPA, CMP #### [facility] [address] [address] [address] Adrianna Caldera Urea nitrogen [Mass/Vol] 9.0 mg/dL Normal 7.0-18.0 [facility] Comment on above: Performed By: #### L IPA, CMP #### [facility] [address] [address] [address] Adrianna Caldera Urea nitrogen/Creatinine [Mass ratio] 14.8 mg/mg Normal [facility] Comment on above: Performed By: #### L IPA, [facility] #### [facility] [address] [place] [address] Dr. Adrianna Caldera No Panel Informationon 05-17 Body mass index (BMI) [Percentile] Per age and sex 0.1 {percentile} Invalid Interpretation Code Visier [id number] Per age and sex 0.1 {percentile} Invalid Interpretation Code Visier US PREG TVon 05-01-2022 US PREG TV [...] KAROL SIDDIQUI Date: 2022-04-30 22:06 Normal [facility] US PREG TVon 04-08-2022 US PREG [...] by: KAROL SIDDIQUI Date: 2022-04-08 17:[address] [facility] PELVIS TRANSVAGon 022 US PELVIS TRANSVAG EXAM: [...] CINDY NOGUEIRA Date: 2022-03-22 22:47 Normal [facility] CBC AUTO DIFFon 03-22-2022 BASO # 0.1 103/ul Normal 0.0-0.1 [facility] Comment on above: Performed By: #### U ACSIND #### [facility] [address] [address] [address] Adrianna Caldera Basophils/100 WBC (Bld) 0.5 % Normal 0.2-2.0 [facility] Comment on above: Performed By: #### U ACSIND #### [facility] [address] [address] [address] Adrianna Caldera EO # 0.1 103/ul Normal 0.0-0.7 [facility] Comment on above: Performed By: #### U ACSIND #### [facility] [address] [address] [address] Adrianna Caldera Eosinophils/100 WBC (Bld) 0.6 % Critically low 0.9-7.0 [facility] Comment on above: Performed By: #### U ACSIND #### [facility] [address] [address] [address] Adrianna Caldera Erythrocyte distribution width (RBC) [Ratio] 12.6 % Normal 11.0-15.0 [facility] Comment on above: Performed By: #### U ACSIND #### [facility] [address] [address] [address] Adrianna Caldera Hematocrit (Bld) [Volume fraction] 40.0 % Normal 36.0-48.0 [facility] Comment on above: Performed By: #### U ACSIND #### [facility] [address] [place] [address] Dr. Adrianna Caldera Hemoglobin (Bld) [Mass/Vol] 13.6 g/dL Normal 12.0-16.0 [facility] Comment on above: Performed By: #### U ACSIND #### [facility] [address] [address] [address] Adrianna Caldera IG # 0.03 10e3/ul Normal 0.00-0.03 [facility] Comment on above: Performed By: #### U ACSIND #### [facility] [address] [place] [address] Dr. Adrianna Caldera IG % 0.3 % Normal 0.0-0.5 [facility] Comment on above: Performed By: #### U ACSIND #### [facility] [address] [place] [address] Dr. Adrianna Caldera LYMPH # 4.4 103/ul Critically high 1.2-3.8 [facility] Comment on above: Performed By: #### U ACSIND #### [facility] [address] [place] [address] Dr. Adrianna Caldera Lymphocytes/100 WBC (Bld) 38.4 % Normal 20.5-60.0 [facility] Comment on above: Performed By: #### U ACSIND #### [facility] [address] [place] [address] Dr. Adrianna Caldera MANUAL DIFF REQ NO Normal [facility] Comment on above: Performed By: #### U ACSIND #### [facility] [address] [place] [address] Dr. Adrianna Caldera MCH (RBC) [Entitic mass] 30.2 pg Normal 26.7-34.0 [facility] Comment on above: Performed By: #### U ACSIND #### [facility] [address] [address] [address] Adrianna Caldera MCHC (RBC) [Mass/Vol] 34.0 g/dL Normal 29.9-35.2 [facility] Comment on above: Performed By: #### U ACSIND #### [facility] [address] [address] [address] Adrianna Caldera MCV (RBC) [Entitic vol] 88.9 fL Normal 81.0-99.0 [facility] Comment on above: Performed By: #### U ACSIND #### [facility] [address] [place] [address] Dr. Adrianna Caldera MONO # 0.7 103/ul Normal 0.3-0.8 [facility] Comment on above: Performed By: #### U ACSIND #### [facility] [address] [place] [address] Dr. Adrianna Caldera Monocytes/100 WBC (Bld) 6.2 % Normal 1.7-12.0 [facility] Comment on above: Performed By: #### U ACSIND #### [facility] [address] [place] [address] Dr. Adrianna Caldera NEUT # 6.1 103/ul Normal 1.4-6.5 [facility] Comment on above: Performed By: #### U ACSIND #### [facility] [address] [place] [address] Dr. Adrianna Caldera Neutrophils/100 WBC (Bld) 54.0 % Normal 43.0-75.0 [facility] Comment on above: Performed By: #### U ACSIND #### [facility] [address] [place] [address] Dr. Adrianna Caldera Platelet mean volume (Bld) [Entitic vol] 10.9 fL Normal 9.5-13.5 [facility] Comment on above: Performed By: #### U ACSIND #### [facility] [address] [place] [address] Dr. Adrianna Caldera PLT 277 103/ul Normal 150-450 [facility] Comment on above: Performed By: #### U ACSIND #### [facility] [address] [address] [address] Adrianna Caldera RBC 4.50 106/ul Normal 4.20-5.40 [facility] Comment on above: Performed By: #### U ACSIND #### [facility] [address] [address] [address] Adrianna Caldera WBC 11.3 103/ul Critically high 4.0-11.0 [facility] Comment on above: Performed By: #### U ACSIND #### [facility] [address] [address] [address] Adrianna Caldera ER URINE PROFILEon 2 Bilirubin Ql (U) Negative Normal NEGATIVE [facility] Comment on above: Performed By: #### P REGU, ERUR ####[facility] [id number] [address]Dr. Adrianna Caldera Clarity (U) CLEAR Normal CLEAR [facility] Comment on above: Performed By: #### P REGU, ERUR ####[facility] [address] [address]Dr. Adrianna Caldera Color (U) LT. YELLOW Normal YELLOW [facility] Comment on above: Performed By: #### P REGU, ERUR ####[facility] [address] [address]Dr. Adrianna Caldera ERUAHD A micrscopic examination will be performed if indicated. Normal [facility] Comment on above: Performed By: #### P REGU, ERUR ####[facility] [address] [address]Dr. Adrianna Caldera Glucose Ql (U) Negative Normal NEGATIVE [facility] Comment on above: Performed By: #### P REGU, ERUR ####[facility] [address] [address]Dr. Adrianna Caldera Hemoglobin Ql (U) Negative Normal NEGATIVE [facility] Comment on above: Performed By: #### P REGU, ERUR ####[facility] [address] [place], [place] [address]Dr. Adrianna Caldera Ketones Ql (U) Negative Normal NEGATIVE [facility] Comment on above: Performed By: #### P REGU, ERUR ####[facility] [address] [address]Dr. Adrianna Caldrea LEUKOCYTES Negative Normal NEGATIVE [facility] Comment on above: Performed By: #### P REGU, ERUR ####[facility] [address] [address]Dr. Adrianna Caldera Nitrite Ql (U) Negative Normal NEGATIVE [facility] Comment on above: Performed By: #### P REGU, ERUR ####[facility] [address] [address]Dr. Adrianna Caldera pH (U) 6.0 [pH] Normal 5-9 [facility] Comment on above: Performed By: #### P REGU, ERUR ####[facility] [id number] [place], [place] [address]Dr. Adrianna Caldera SPEC GRAVITY <=1.005 Abnormal 1.005-<=1.0 25 [facility] Comment on above: Performed By: #### P REGU, ERUR ####[facility] [address] [place], [place] [address]Dr. Adrianna Caldera UA PROTEIN Negative Normal NEGATIVE/ TRACE [facility] Comment on above: Performed By: #### P REGU, ERUR ####[facility] [id number] [place], [place] [address]Dr. Adrianna Caldera UR MICRO IND NOT INDICATED Normal [facility] Comment on above: Performed By: #### P REGU, ERUR ####[facility] [address] [address]Dr. Adrianna Caldera Urobilinogen Qn (U) 0.2 {Micheal'U}/dL Normal 0.2 - 1. 0 [facility] Comment on above: Performed By: #### P REGU, ERUR ####[facility] [address] [place], [place] [address]Dr. Adrianna Caldera PREG QUANT HCGon 03-22-2022 HCG QUANT 2 mIU/mL Normal [facility] Comment on above: Performed By: #### P REGQNT #### [facility] [address] [address] [address] Adrianna Caldera HCG RANGE SEE BELOW Normal [facility] Comment on above: Result Comment: 5-50 0.2-1 WEEK 50-500 1-2 WEEKS 100-5,000 2-3 WEEKS 500-10,000 3-4 WEEKS 1,000-50,000 4-5 WEEKS 10,000-100,000 5-6 WEEKS 15,000-200,000 6-8 WEEKS 10,000-100,000 2-3 MONTHS Performed By: #### P REGQNT #### [facility] [address] [address] [address] Adrianna Caldera URon 03-22-2022 , QUAL Negative Normal NEGATIVE [facility] Comment on above: Performed By: #### P REGU, ERUR ####[facility] [address] [address]Dr. Adrianna Caldera PROF CHEM 8 (BAS METB)on Anion gap [Moles/Vol] 10.9 mmol/L Normal [facility] Comment on above: Performed By: #### U ACSIND #### [facility] [address] [address] [address] Adrianna Caldera Calcium [Mass/Vol] 9.1 mg/dL Normal 8.5-10.1 [facility] Comment on above: Performed By: #### U ACSIND #### [facility] [address] [address] [address] Adrianna Caldera Chloride [Moles/Vol] 105 mmol/L Normal 98-107 [facility] Comment on above: Performed By: #### U ACSIND #### [facility] [address] [address] [address] Adrianna Caldera CO2 [Moles/Vol] 26.0 mmol/L Normal 21.0-32.0 [facility] Comment on above: Performed By: #### U ACSIND #### [facility] [address] [address] [address] Adrianna Caldera Creatinine [Mass/Vol] 0.98 mg/dL Normal 0.55-1.02 [facility] Comment on above: Performed By: #### U ACSIND #### [facility] [address] [address] [address] Adrianna Caldera EGFR-AF TOGOLESE >60 Normal >=60 [facility] Comment on above: Performed By: #### U ACSIND #### [facility] [address] [address] [address] Adrianna Caldera EGFR-NON AF TOGOLESE >60 Normal >=60 [facility] Comment on above: Performed By: #### U ACSIND #### [facility] [address] [address] [address] Adrianna Caldera Glucose [Mass/Vol] 87 mg/dL Normal 74-106 [facility] Comment on above: Performed By: #### U ACSIND #### [facility] [address] [address] [address] Adrianna Caldera Potassium [Moles/Vol] 3.9 mmol/L Normal 3.5-5.1 [facility] Comment on above: Performed By: #### U ACSIND #### [facility] [address] [address] [address] Adrianna Caldera Sodium [Moles/Vol] 138 mmol/L Normal 136-145 [facility] Comment on above: Performed By: #### U ACSIND #### [facility] [address] [address] [address] Adrianna Caldera Urea nitrogen [Mass/Vol] 11.0 mg/dL Normal 7.0-18.0 [facility] Comment on above: Performed By: #### U ACSIND #### [facility] [address] [address] [address] Adrianna Caldera Urea nitrogen/Creatinine [Mass ratio] 11.2 mg/mg Normal [facility] Comment on above: Performed By: #### U ACSIND #### [facility] [address] [address] [address] Adrianna Caldera PREG QUANT HCGon 03-03-2022 HCG QUANT 1 mIU/mL Normal [facility] Comment on above: Performed By: #### P REGQNT #### [facility] [address] [address] [address] Adrianna Caldera HCG RANGE SEE BELOW Normal [facility] Comment on above: Result Comment: 5-50 0.2-1 WEEK 50-500 1-2 WEEKS 100-5,000 2-3 WEEKS 500-10,000 3-4 WEEKS 1,000-50,000 4-5 WEEKS 10,000-100,000 5-6 WEEKS 15,000-200,000 6-8 WEEKS 10,000-100,000 2-3 MONTHS Performed By: #### P REGQNT #### [facility] [address] [address] [address] Adrianna Caldera Creatinine and Glomerular fi ltration rate.predicted panel (S/P/Bld)Ordered By: Tae Natarajan on 02-10-2022 Creatinine [Mass/Vol] 1.03 mg/dL 0.44-1.03 [facility] Estimated glomerular filtrat ion rate (GFR) non- AmericanOrdered By: Tae Natarajan on 02-10-2022 GFR/1.73 sq M.predicted among non-blacks MDRD (S/P/Bld) [Vol rate/Area] > 60 mL/Min [facility] HCG ( test) IA.rapi d Ql (U)Ordered By: Tae Natarajan on 02-10-2022 HCG ( test) Ql (U) Negative [facility] No Panel InformationOrdered By: Tae Natarajan on 02-10-2022 Estimated GFR () > 60 mL/Min [facility] Comment on above: GFR estimated refere nce range: According to KDOQI guidelines, <60 ml/min/1.73m2 is sufficient to diagnose a patient with chronic kidney disease. Pharmacy Creatinine Clearance (Chem 88.89 [facility] Serum or plasma urea nitroge n measurement (mass/volume)Ordered By: Tae Natarajan on 02-10-2022 Urea nitrogen [Mass/Vol] 9 mg/dL 02-19 [facility] PREG QUANT HCGon 12-04-2021 HCG QUANT <1 Normal [facility] Comment on above: Performed By: #### P REGQNT #### [facility] [address] [place], [place] [address] Dr. Adrianna Caldera HCG RANGE SEE BELOW Normal [facility] Comment on above: Result Comment: 5-50 0-1 WEEK 40-300 1-2 WEEKS 100-1,000 2-3 WEEKS 500-6,000 3-4 WEEKS 5,000-200,000 1-2 MONTHS 10,000-100,000 2-3 MONTHS 3,000-50,000 2ND TRIMESTER 1,000-50,000 3RD TRIMESTER Performed By: #### P REGQNT #### [facility] [address] [address] [address] Adrianna Caldera CBC AUTO DIFFon 11-14-2021 BASO # 0.1 103/ul Normal 0.0-0.1 [facility] Comment on above: Performed By: #### C BC ####[facility] [address] [address]Dr. Adrianna Caldera Basophils/100 WBC (Bld) 0.5 % Normal 0.2-2.0 [facility] Comment on above: Performed By: #### C BC ####[facility] [address] [address]Dr. Adrianna Caldera EO # 0.1 103/ul Normal 0.0-0.7 [facility] Comment on above: Performed By: #### C BC ####[facility] [address] [address]Dr. Adrianna Caldera Eosinophils/100 WBC (Bld) 0.8 % Critically low 0.9-7.0 [facility] Comment on above: Performed By: #### C BC ####[facility] [address] [id number]. Adrianna Caldera Erythrocyte distribution width (RBC) [Ratio] 13.0 % Normal 11.0-15.0 [facility] Comment on above: Performed By: #### C BC ####[facility] [address] [address]Dr. Adrianna Caldera Hematocrit (Bld) [Volume fraction] 38.5 % Normal 36.0-48.0 [facility] Comment on above: Performed By: #### C BC ####[facility] [address] [address]Dr. Adrianna Caldera Hemoglobin (Bld) [Mass/Vol] 12.9 g/dL Normal 12.0-16.0 [facility] Comment on above: Performed By: #### C BC ####[facility] [address] [address]Dr. Adrianna Caldera IG # 0.03 10e3/ul Normal 0.00-0.03 [facility] Comment on above: Performed By: #### C BC ####[facility] [address] [place], [place] [address]Dr. Adrianna Werner IG % 0.3 % Normal 0.0-0.5 [facility] Comment on above: Performed By: #### C BC ####[facility] [address] [place], [place] [address]Dr. Adrianna Werner LYMPH # 2.8 103/ul Normal 1.2-3.8 [facility] Comment on above: Performed By: #### C BC ####[facility] [address] [place], [place] [address]DrAung Adrianna Werner Lymphocytes/100 WBC (Bld) 27.4 % Normal 20.5-60.0 [facility] Comment on above: Performed By: #### C BC ####[facility] [address] [place], [place] [address]Dr. Adrianna Werner MANUAL DIFF REQ NO Normal [facility] [place] [facility] Comment on above: Performed By: #### C BC ####[facility] [address] [place], [place] [address]Dr. Adrianna Werner MCH (RBC) [Entitic mass] 29.7 pg Normal 26.7-34.0 [facility] Comment on above: Performed By: #### C BC ####[facility] [address] [place], [place] [address]Dr. Adrianna Werner MCHC (RBC) [Mass/Vol] 33.5 g/dL Normal 29.9-35.2 [facility] Comment on above: Performed By: #### C BC ####[facility] [address] [address]DrAung Caldera MCV (RBC) [Entitic vol] 88.7 fL Normal 81.0-99.0 [facility] Comment on above: Performed By: #### C BC ####[facility] [address] [place], [place] [address]DrAung Caldera MONO # 0.7 103/ul Normal 0.3-0.8 [facility] Comment on above: Performed By: #### C BC ####[facility] [address] [place], [place] [address]DrAung Caldera Monocytes/100 WBC (Bld) 6.5 % Normal 1.7-12.0 [facility] Comment on above: Performed By: #### C BC ####[facility] [address] [place], [place] [address]DrAung Caldera NEUT # 6.5 103/ul Normal 1.4-6.5 [facility] Comment on above: Performed By: #### C BC ####[facility] [address] [place], [place] [address]DrAung Caldera Neutrophils/100 WBC (Bld) 64.5 % Normal 43.0-75.0 [facility] Comment on above: Performed By: #### C BC ####[facility] [address] [place], [place] [address]DrAung Caldera Platelet mean volume (Bld) [Entitic vol] 10.4 fL Normal 9.5-13.5 [facility] Comment on above: Performed By: #### C BC ####[facility] [address] [place], [place] [address]DrAung Caldera PLT 324 103/ul Normal 150-450 [facility] Comment on above: Performed By: #### C BC ####[facility] [address] [place], [place] [address]DrAung Caldera RBC 4.34 106/ul Normal 4.20-5.40 [facility] Comment on above: Performed By: #### C BC ####[facility] [address] [address]Dr. Adrianna Caldera WBC 10.1 103/ul Normal 4.0-11.0 [facility] Comment on above: Performed By: #### C BC ####[facility] [address] [address]Dr. Jemimabenito Werner ER URINE PROFILEon 2 Bilirubin Ql (U) Negative Normal NEGATIVE [facility] Comment on above: Performed By: #### E RUR, PREGU, UMICRO ####[facility] [address] [place], [place] [address]Dr. Jemimabenito Caldera Clarity (U) CLEAR Normal CLEAR [facility] Comment on above: Performed By: #### E RUR, PREGU, UMICRO ####[facility] [address] [place], [place] [address]Dr. Jemimabenito Werner Color (U) LT. YELLOW Normal YELLOW [facility] Comment on above: Performed By: #### E RUR, PREGU, UMICRO ####[facility] [address] [place], [place] [address]Dr. Adrianna Caldera ERUAHD A micrscopic examination will be performed if indicated. Normal [facility] Comment on above: Performed By: #### E RUR, PREGU, UMICRO ####[facility] [address] [place], [place] [address]Dr. Adrianna Caldera Glucose Ql (U) Negative Normal NEGATIVE [facility] Comment on above: Performed By: #### E RUR, PREGU, UMICRO ####[facility] [address] [place], [place] [address]Dr. Adrianna Caldera Hemoglobin Ql (U) LARGE Abnormal NEGATIVE [facility] Comment on above: Performed By: #### E RUR, PREGU, UMICRO ####[facility] J[address] [place], [place] [address]Dr. Adrianna Caldera Ketones Ql (U) Negative Normal NEGATIVE [facility] Comment on above: Performed By: #### E RUR, PREGU, UMICRO ####[facility] [address] [address]Dr. Adrianna Caldera LEUKOCYTES Negative Normal NEGATIVE [facility] Comment on above: Performed By: #### E RUR, PREGU, UMICRO ####[facility] [address] [address]Dr. Adrianna Caldera Nitrite Ql (U) Negative Normal NEGATIVE [facility] Comment on above: Performed By: #### E RUR, PREGU, UMICRO ####[facility] [address] [address]Dr. Adrianna Caldera pH (U) 6.5 [pH] Normal 5-9 [facility] Comment on above: Performed By: #### E RUR, PREGU, UMICRO ####[facility] [address] [place], [place] [address]Dr. Adrianna Caldera SPEC GRAVITY 1.015 Normal 1.005-<=1.[address] [place] [address] Comment on above: Performed By: #### Rojelio RUR, PREGU, UMICRO ####[facility] [address] [place], [place] [address]Dr. Adrianna Caldera UA PROTEIN Negative Normal NEGATIVE/ TRACE [facility] Comment on above: Performed By: #### E RUR, PREGU, UMICRO ####[facility] [address] [address]Dr. Adrianna Caldera UR MICRO IND INDICATED Normal [facility] Comment on above: Performed By: #### E RUR, PREGU, UMICRO ####[facility] [address] [place], [place] [address]Dr. Adrianna Caldera Urobilinogen Qn (U) 0.2 {Micheal'U}/dL Normal 0.2 - 1. 0 [facility] Comment on above: Performed By: #### E RUR, PREGU, UMICRO ####[facility] [address] [address]Dr. dArianna Caldera URon 06-18-2022 , QUAL Negative Normal NEGATIVE [facility] Comment on above: Performed By: #### E RUR, PREGU, UMICRO ####[facility] [address] [place], [place] [address]Dr. Adrianna Caldera PROF CHEM 8 (BAS METB)on Anion gap [Moles/Vol] 13.5 mmol/L Normal [facility] Comment on above: Performed By: #### U ACSIND #### [facility] [address] [address] [address] Adrianna Caldera Calcium [Mass/Vol] 8.7 mg/dL Normal 8.5-10.1 [facility] Comment on above: Performed By: #### U ACSIND #### [facility] [address] [address] [address] Adrianna Caldera Chloride [Moles/Vol] 102 mmol/L Normal 98-107 [facility] Comment on above: Performed By: #### U ACSIND #### [facility] [address] [address] [address] Adrianna Caldera CO2 [Moles/Vol] 27.3 mmol/L Normal 21.0-32.0 [facility] Comment on above: Performed By: #### U ACSIND #### [facility] [address] [address] [address] Adrianna Caldera Creatinine [Mass/Vol] 0.85 mg/dL Normal 0.55-1.02 [facility] Comment on above: Performed By: #### U ACSIND #### [facility] [address] [address] [address] Adrianna Caldera EGFR-AF TOGOLESE >60 Normal >=60 [facility] Comment on above: Performed By: #### U ACSIND #### [facility] [address] [address] [address] Adrianna Caldera EGFR-NON AF TOGOLESE >60 Normal >=60 [facility] Comment on above: Performed By: #### U ACSIND #### [facility] [address] [address] [address] Adrianna Caldera Glucose [Mass/Vol] 104 mg/dL Normal 74-106 [facility] Comment on above: Performed By: #### U ACSIND #### [facility] [address] [address] [address] Adrianna Caldera Potassium [Moles/Vol] 3.8 mmol/L Normal 3.5-5.1 [facility] Comment on above: Performed By: #### U ACSIND #### [facility] [address] [address] [address] Adrianna Caldera Sodium [Moles/Vol] 139 mmol/L Normal 136-145 [facility] Comment on above: Performed By: #### U ACSIND #### [facility] [address] [address] [address] Adrianna Caldera Urea nitrogen [Mass/Vol] 8.0 mg/dL Normal 7.0-18.0 [facility] Comment on above: Performed By: #### U ACSIND #### [facility] [address] [address] [address] Adrianna Caldera Urea nitrogen/Creatinine [Mass ratio] 9.4 mg/mg Normal [facility] Comment on above: Performed By: #### U ACSIND #### [facility] [address] [address] [address] Adrianna Caldera URINE MICROSCOPIC ONLYon BACTERIA NONE SEEN Normal NONE SEEN [facility] Comment on above: Performed By: #### E RUJOHN Ghosh UMICRO ####[facility] [address] [address]Dr. Adrianna Caldera Bacteria identified Cx Nom (U) NOT INDICATED Normal [facility] Comment on above: Performed By: #### E HECTOR MONDRAGONU UMICRO ####[facility] [address] [id number]. Adrianna Caldera CAST NONE SEEN Normal NONE SEEN [facility] Comment on above: Performed By: #### E RUR PREGU UMICRO ####[facility] [address] [address]Dr. Adrianna Caldera Crystals LM Nom (Urine sed) NONE SEEN Normal NONE SEEN [facility] Comment on above: Performed By: #### JOHN HAYNES UMICRO ####[facility] [address] [place], [place] [address]Rp. Adrianna Werner Epithelial cells LM Ql (Urine sed) RARE Normal NONE SEEN /RARE [facility] Comment on above: Performed By: #### Rojelio RUHECTOR GhoshU UMICRO ####[facility] [address] [place], [place] [address]Ai. Jemimabenito Caldera MUCOUS NONE SEEN Normal NONE SEEN [facility] Comment on above: Performed By: #### JOHN HAYNES UMICRO ####[facility] [address] [place], [place] [address]Df. Jemimabenito Caldera RBC 10-20 Abnormal 0-2 [facility] Comment on above: Performed By: #### JOHN HAYNES UMICRO ####[facility] [address] [place], [place] [address]Nm. Jemimabenito Caldera WBC 0-2 Abnormal NONE SEEN [facility] Comment on above: Performed By: #### JOHN HAYNES UMICRO ####[facility] [address] [id number]. Adrianna Caldera HCG, Quantitative, on 10-12-2021 hCG Quant <1 <5 mIU/mL [facility] Comment on above: Non-preg premeno <=5 Postmeno <=8 Male <=3 If HCG results do not concur with clinical observations, additional testing to confirm results is recommended. Elevated results not associated with may be found in patients with other diseases such as tumors of the germ cells (testis, ovaries, etc.), bladder, pancreas, stomach, lungs, and liver. [facility] CBC with Auto Differentialon 10-11-2021 Absolute Eos # 0.08 [facility] th Absolute Immature Granulocyte <0.03 [facility] Absolute Lymph # 1.85 [facility] alth Absolute [place] # 0.56 [facility] Basophils (Bld) [#/Vol] 0.04 10*3/uL [facility] Basophils/100 WBC (Bld) 1 % 0 - 2 % M [facility] Eosinophils/100 WBC (Bld) 1 % 1 - 4 % [facility] Hematocrit (Bld) [Volume fraction] 38.9 % 36.3 - 47.1 % [facility] Hemoglobin.gastrointest inal spec 1 Ql (Stl) 12.7 g/dL 11.9 - 15.1 g/dL [facility] Immature granulocytes/100 WBC (Bld) 0 % 0 [facility] Lymphocytes/100 WBC (Bld) 29 % 24 - 43 % [facility] MCH (RBC) [Entitic mass] 29.7 pg 25.2 - 33.5 pg [facility] MCHC (RBC) [Mass/Vol] 32.6 g/dL 28.4 - 34.8 g/dL [facility] MCV (RBC) [Entitic vol] 90.9 fL 82.6 - 102.9 fL [facility] Monocytes/100 WBC (Bld) 9 % 3 - 12 % M [facility] NRBC Automated 0.0 0.0 per 100 WBC [facility] Platelet distribution width (Bld) [Ratio] 12.9 % 11.8 - 14.4 % [facility] Platelet mean volume (Bld) [Entitic vol] 10.3 fL 8.1 - 13.5 fL [facility] Platelets (Bld) [#/Vol] 351 10*3/uL [facility] RBC (Bld) [#/Vol] 4.28 10*6/uL 3.95 - 5.1 1 m/uL [facility] Segmented neutrophils/100 WBC (Bld) 60 % 36 - 65 % [facility] Segs Absolute 3.90 [facility] WBC (Bld) [#/Vol] 6.5 10*3/uL [facility] CT ABDOMEN PELVIS W IV CONTR AST [...] No hydronephrosis. Gallbladder is not remarkable. GI/Bowel: Lzej-ok-dybpmdub retained stool without bowel obstruction. No pericecal inflammatory changes. Appendix unremarkable. Pelvis: There is mild prominence endometrial canal 7 mm. This may related to phase of menstrual cycle. Please correlate exam findings and history. No suspicious adnexal mass. Bladder remarkable. Peritoneum/Retroperi toneum: Trace free fluid dependent pelvis. No free air. No suspicious adenopathy. Bones/Soft Tissues: No suspicious osseous lesion [facility] Ashutosh Rodriguez MD - 10/11/2021 EXAMINATION: CT OF THE [...] No hydronephrosis. Gallbladder is not remarkable. GI/Bowel: Jvbk-hb-ocikrjsk retained stool without bowel obstruction. No pericecal [...] Negative acute inflammatory process or bowel obstruction. [employer] Phone: Radiology Study observation (narrative) Wote Phone: CT ABDOMEN PELVIS W IV CONTR AST Additional Contrast? NoneOrdered By: Ashutosh Lyssa on 10-11-2021 [employer] Work Phone: Comprehensive Metabolic Pane l w/ Reflex to MGon 10-11-2021 Albumin [Mass/Vol] 4.3 g/dL 3.5 - 5.2 g/dL [facility] [employer] Albumin/Globulin [Mass ratio] 1.7 {ratio} [facility] ALP (Bld) [Catalytic activity/Vol] 73 U/L 35 - 104 U/L [facility] ALT [Catalytic activity/Vol] 21 U/L 5 - 33 U/L [facility] Anion gap [Moles/Vol] 7 mmol/L Low 9 - 17 mmol/L [facility] AST [Catalytic activity/Vol] 15 U/L <32 [facility] Bilirubin [Mass/Vol] 0.25 mg/dL Low 0.3 - 1 .2 mg/dL [facility] Calcium [Mass/Vol] 9.1 mg/dL 8.6 - 10. 4 mg/dL [facility] Chloride [Moles/Vol] 105 mmol/L 98 - 10 7 mmol/L [facility] CO2 [Moles/Vol] 26 mmol/L 20 - 31 mmol/L [facility] Creatinine [Mass/Vol] 0.75 mg/dL 0.50 - 0.90 mg/dL [facility] Free PSA/Total PSA [Mass fraction] 6.8 g/dL 6.4 - 8.3 g/dL [facility] GFR >60 >60 mL/min [facility] GFR Non- >60 >60 mL/min [facility] Glucose [Mass/Vol] 116 mg/dL High 70 - 99 mg/dL [facility] [employer] Interpretation and review of laboratory results Abnormal [facility] Potassium [Moles/Vol] 3.9 mmol/L 3.7 - 5.3 mmol/L [facility] Sodium [Moles/Vol] 138 mmol/L 135 - 144 mmol/L [facility] Urea nitrogen (BldV) [Mass/Vol] 9 mg/dL 6 - 20 mg/dL [facility] [employer] Urea nitrogen/Creatinine (Bld) [Mass ratio] 12 [facility] - Chemistry and C hemistry - challengeon 10-11-2021 GFR/1.73 sq M.predicted MDRD (S/P/Bld) [Vol rate/Area] [employer] Comment on above: Average GFR for 20-2 9 years old: 116 mL/min/1.73sq m Chronic Kidney Disease: <60 mL/min/1.73sq m Kidney failure: <15 mL/min/1.73sq m eGFR calculated using average adult body mass. Additional eGFR calculator available at: http://www.Ideabove/multiple_crcl_2012.htm Stage 1: Some kidney damage normal GFR Stage 2: Mild kidney damage GFR 60-89 Stage 3: Moderate kidney damage GFR 30-59 Stage 4: Severe kidney damage GFR 15-29 Stage 5: Severe kidney damage GFR <15 ESRD - chronic treatment by dialysis or transplant Lipaseon 10-11-2021 Lipase [Catalytic activity/Vol] 39 U/L 13 - 60 U/L [facility] Microscopic Urinalysison - [facility] Bacteria, UA TRACE Abnormal None [facility] Crystals, UA 2 TO 5 CALCIUM OXALATE Abnormal None /HPF [facility] Epithelial Cells UA 2 TO 5 [facility] Interpretation and review of laboratory results Abnormal [facility] RBC, UA 2 TO 5 [facility] WBC, UA 0 TO 2 [employer] No Panel Informationon 10-11 [facility] , Urineon Beta HCG ( test) Ql (U) Negative NEGATIVE [facility] Comment on above: Specimens with hCG l evels near the threshold of the test (25 mIU/mL) may give a negative or indeterminate result. In such cases, another test should be performed with a new specimen in 48-72 hours. If early is suspected clinically in this setting, correlation with quantitative serum b-hCG level is suggested. [employer] has confirmed the use of plasma for this test. This has not been cleared or approved by the U.S. Food and Drug Administration. The FDA has determined that such clearance is not necessary. [facility] Urinalysis with Reflex to Cu ltureon 10-11-2021 Bilirubin Urine Negative NEGATIVE [employer] a lt Color, UA Yellow Yellow [facility] Glucose, Ur Negative NEGATIVE [facility] Interpretation and review of laboratory results Abnormal [facility] Ketones Ql (U) Negative NEGATIVE [facility] th Leukocyte esterase Test strip Ql (U) Negative NEGATIVE [facility] Nitrite, Urine Negative NEGATIVE [facility] pH, UA 6.0 [facility] Protein, UA Negative NEGATIVE [facility] Specific Peck, UA >1.[address] [facility] Turbidity UA Clear Clear [facility] Urine Hgb TRACE Abnormal NEGATIVE [facility] Urobilinogen, Urine Normal Normal [facility] PREG QUANT HCGon 10-09-2021 HCG QUANT <1 Normal [facility] Comment on above: Performed By: #### P REGQNT ####[facility] [address] [place], [place] [address]Ki. Adrianna Caldera HCG RANGE SEE BELOW Normal [facility] Comment on above: Result Comment: 5-50 0-1 WEEK 40-300 1-2 WEEKS 100-1,000 2-3 WEEKS 500-6,000 3-4 WEEKS 5,000-200,000 1-2 MONTHS 10,000-100,000 2-3 MONTHS 3,000-50,000 2ND TRIMESTER 1,000-50,000 3RD TRIMESTER Performed By: #### P REGQNT ####[facility] [address] [place], [place] [address]Ek. Adrianna Caldera CULTURE, URINE, ROUTINEon CULTURE, URINE, ROUTINE SEE NOTE Abnormal [facility] Comment on above: Result Comment: CULTURE, URINE, ROUTINE Micro Number: [id number] Test Status: Final Specimen Source: Urine Specimen [...] Performed By: #### 3 95 #### [facility] [address], [address] [place] [id number] Computer Science Intern: Javid Broussard MD XR CHEST PORTABLEon 03-16-20 20 No acute process. [facility] ONE XRAY VIEW OF THE CHEST 03/16/2020 3:33 pm COMPARISON: 07/13/2014 HISTORY: ORDERING SYSTEM PROVIDED HISTORY: cough, dyspnea TECHNOLOGIST PROVIDED HISTORY: cough, dyspnea FINDINGS: The lungs are without acute focal process. There is no effusion or pneumothorax. The cardiomediastinal silhouette is without acute process. The osseous structures are without acute process. [facility] [place], p[place] Incoming Radiant Results From FonJax/Blaze - 03/16/2020 3:43 PM EDT EXAMINATION: ONE XRAY VIEW OF THE CHEST 03/16/2020 3:33 pm COMPARISON: 07/13/2014 HISTORY: ORDERING SYSTEM PROVIDED HISTORY: cough, dyspnea TECHNOLOGIST PROVIDED HISTORY: cough, dyspnea FINDINGS: The lungs are without acute focal process. There is no effusion or pneumothorax. The cardiomediastinal silhouette is without acute process. The osseous structures are without acute process. IMPRESSION: No acute process. [place] Urinalysis with Microscopico n 03-03-2020 Amorphous, UA 1+ Abnormal None [place], [place] Bacteria, UA NOT REPORTED None [place] Bilirubin Urine Negative NEGATIVE [place] Casts UA NOT REPORTED /LPF [place] Color, UA YELLO YELLOW [place] Crystals, UA NOT REPORTED None /HPF [place] Epithelial Cells UA None [place] Glucose, Ur Negative NEGATIVE [place] Interpretation and review of laboratory results Abnormal [place] Ketones Ql (U) Negative NEGATIVE [place] Leukocyte esterase Test strip Ql (U) Negative NEGATIVE [place] Mucus, UA NOT REPORTED None [place] Nitrite, Urine Negative NEGATIVE [place] Other Observations UA NOT REPORTED NOT REQ. M [place] pH, UA 6.0 [place] Protein (U) [Mass/Vol] Negative NEGATIVE [place], [place] RBC (U) [#/Vol] None [place], [place] Renal Epithelial, UA NOT REPORTED 0 /HPF [place] Specific Peck, UA >1.030 [place], [place] Trichomonas, UA NOT REPORTED None [place], [place] Turbidity UA CLOUDY Abnormal CLEAR [place] Urinalysis Comments NOT REPORTED [place] Urine Hgb TRACE Abnormal NEGATIVE [place] Urobilinogen, Urine Normal Normal [place] WBC, UA 0 TO 2 [place] Yeast, UA NOT REPORTED None [place] HEPATOBILIARY SCAN W EJEC TION FRACTIONon 10-12-2019 Cholesterol [Mass/Vol] No convincing scintigraphic evidence of acute or chronic cholecystitis. [place] EXAMINATION: NUCLEAR MEDICINE HEPATOBILIARY SCINTIGRAPHY (HIDA [...] 30-60 mins. Images were obtained in the JORDANIAN projection and regions of interest were drawn [...] range is based on a limited study. [facility], [place], pn Incoming Radiant Results From FonJax/Blaze - 10/12/2019 2:56 PM EDT EXAMINATION: NUCLEAR [...] 30-60 mins. Images were obtained in the JORDANIAN projection and regions of interest were drawn [...] scintigraphic evidence of acute or chronic cholecystitis. [facility] [place], [place] HEPATOBILIARY SCAN W PHAR MACOLOGICAL [...] 30-60 mins. Images were obtained in the JORDANIAN projection and regions of interest were drawn [...] Niraj Covarrubias MD 10/12/19 Final result Normal [facility] H. pylori urease IDon 2019 H. pylori urease ID Specimen Description .TISSUE, ST[place] [id number] EXP 04/05/20 Direct Exam NEGATIVE Report Status FINAL 10/06/2019 Normal [facility] Comment on above: Performed By: #### H JOELLE #### [facility] [address] [place] [address] Statistician Applied: Varun Vicente MD [facility] [address] [place] [id number] Statistician Applied: Omar Segundo MD OPERATIVE REPORTon 0 OPERATIVE REPORT [address] [id number] OPERATIVE REPORT PATIENT NAME: LULÚ GAITAN : 1995 MED REC NO: [id number] ROOM: ACCOUNT NO: [id number] ADMIT DATE: 10/05/2019 PROVIDER: Toño Blanc Jr [...] completion in satisfactory condition. TOÑO BLANC JR [id number]_[email or web address]_I Doc#: [id number] CC: Lisseth Blanc Jr Normal [facility] POCT urine pregnancyon 10-04 Beta HCG ( test) Ql (U) Negative NEGATIVE [place] Comment on above: Specimens with hCG l evels near the threshold of the test (25 mIU/mL) may give a negative or indeterminate result. In such cases, another test should be performed with a new specimen in 48-72 hours. If early is suspected clinically in this setting, correlation with quantitative serum b-hCG level is suggested. [id number] 10-05-2019 SARS-CoV-2 Not Detected Normal Not Detected [facility] Comment on above: Result Comment: (NOT E) The [employer] RealTime SARS-CoV-2 assay is a real-time (rt) reverse transcriptase (RT) polymerase chain reaction (PCR) test intended for the Known system. The SARS-CoV-2 primer and probe sets are designed to detect RNA from SARS-CoV-2 in nasopharyngeal (ROAD MANAGER) and oropharyngeal (OP) swabs from patients with [...] The above 1 analytes were performed by [facility] [address] [place] [address] Performed By: #### C OVID #### [facility] [address] [place] [address] Statistician Applied: Samson Martinez DO [facility] [address] [place] [address] Statistician Applied: Omar Segundo MD [facility] [address] [place] [address] Statistician Applied: Bill Jolly MD Surgical Pathologyon 020 Surgical Pathology (NOTE) -- Diagnosis -- 1. GASTRIC ANTRUM BIOPSIES: MILD CHRONIC INACTIVE GASTRITIS. 2. DISTAL ESOPHAGUS BIOPSIES: NORMAL SQUAMOUS MUCOSA. GASTRIC MUCOSA WITH MILD CHRONIC INACTIVE INFLAMMATION; NEGATIVE FOR INTESTINAL/GOBLET CELL METAPLASIA AND GLANDULAR DYSPLASIA. Yolette Bravo Electronically Signed Out ajb10/08/2019 Clinical Information Pre-op Diagnosis: NAUSEA, VOMITING Operative [...] SURGICAL PATHOLOGY CONSULTATION Patient Name: LULÚ GAITAN [facility] Rec: [id number] Path Number: [id number] [facility] ANATOMIC PATHOLOGY [address] [place] [id number] [facility] Comment on above: Performed By: #### P PPVS #### [address] [id number] Statistician Applied: Omar Segundo MD [id number] 10-03-2019 SARS-CoV-2,Rapid Normal [facility] Comment on above: Performed By: #### C OVID #### [facility] [address] [place] [place], [place] [id number] Statistician Applied: Samson Martinez DO [facility] [address] [place] [address] [id number] Statistician Applied: Omar Segundo MD [facility] [address] [place] [address] Statistician Applied: Bill Jolly MD SARS-CoV-[address] [facility] Comment on above: Performed By: #### C OVID #### [facility] [address] [facility] [place] [address] Statistician Applied: Samson Martinez DO [facility] [address] [place] [address] Statistician Applied: Omar Segundo MD [facility] [address] [place] [address] Statistician Applied: Bill Jolly MD SARS-CoV-2 Source .NASOPHARYNGEAL SWAB Normal [facility] Comment on above: Performed By: #### C OVID #### [facility] [address] [facility] [place] [address] Statistician Applied: Samson Martinez DO [facility] [address] [place] [address] Statistician Applied: Omar Segundo MD [facility] [address] [place] [address] Statistician Applied: Bill Jolly MD XR ABDOMEN (KUB) (SINGLE AP VIEW)on 02-08-2019 Nonspecific nonobstructive bowel gas pattern. No definite calcified urinary tract stones are seen. [facility] ONE SUPINE XRAY VIEW(S) OF THE [...] nonobstructive bowel gas pattern. No unusual calcifications. [facility] [place] Mhpn Incoming Radiant Results From FonJax/Pacs - 02/08/2019 4:29 PM EDT EXAMINATION: ONE [...] definite calcified urinary tract stones are seen. [place] Urinalysis with Microscopico n 02-06-2019 Amorphous, UA NOT REPORTED None [place], [place] Bacteria, UA TRACE Abnormal None [place] Bilirubin Urine Negative NEGATIVE [place] Casts UA NOT REPORTED /LPF [place] Color, UA YELLOW YELLOW [place] Crystals UA NOT REPORTED None /HPF [place] Epithelial Cells UA 2 TO 5 [place] Glucose, Ur Negative NEGATIVE [place] Interpretation and review of laboratory results Abnormal [place] Ketones Ql (U) Negative NEGATIVE [place] Leukocyte esterase Test strip Ql (U) Negative NEGATIVE [place] Mucus, UA 1+ Abnormal None [place], [place] Nitrite, Urine Negative NEGATIVE [place] Other Observations UA NOT REPORTED NOT REQ. M [place] pH, UA 7.0 [place] Protein (U) [Mass/Vol] Negative NEGATIVE [place] RBC (U) [#/Vol] 0 TO 2 [place], [place] Renal Epithelial, Urine NOT REPORTED 0 /HPF [place] Specific Peck, UA 1.020 [place], [place] Trichomonas, UA NOT REPORTED None [facility] [place] Turbidity UA CLEAR CLEAR [place] Urinalysis Comments NOT REPORTED [place] Urine Hgb TRACE Abnormal NEGATIVE [place] Urobilinogen, Urine Normal Normal [place], [place] WBC, UA 0 TO 2 [place] Yeast, UA NOT REPORTED None [place] Wet prep, genitalon 02-07-20 19 Direct Exam NO TRICHOMONAS SEEN [place] Direct Exam YEAST [place] Direct Exam CLUE CELLS SEEN Abnormal [place] Interpretation and review of laboratory results Abnormal [place] Special Requests NOT REPORTED [place] Specimen Description .VAGINA [place] Vital Signs Date Time Vital Sign Value Performing Clinician Facility 07-07-2023 10:35-0500 Body height 165.1 cm Matthew Lemus DO Work Phone: [facility] 07-07-2023 10:35-0500 Body mass index (BMI) [Ratio] 25.61 kg/m2 Matthew Lemus DO Work Phone: [facility] 07-07-2023 10:35-0500 Body temperature 97.7 [degF] Matthew Lemus DO Work Phone: [facility] 07-07-2023 10:35-0500 Body weight 69.81 kg Matthew Lemus DO Work Phone: [facility] 07-07-2023 10:35-0500 Diastolic blood pressure 70 mm[Hg] Matthew Lemus DO Work Phone: [facility] 07-07-2023 10:35-0500 Heart rate 100 /min Matthew Lemus DO Work Phone: [facility] 07-07-2023 10:35-0500 SaO2% (BldA) [Mass fraction] 96 % Matthew Lemus DO Work Phone: [facility] 07-07-2023 10:35-0500 Systolic blood pressure 100 mm[Hg] Matthew Lemus Work Phone: [phone] [place] [address] 05-19-2023 15:36-0500 Diastolic blood pressure 59 mm[Hg] DO Matthew Miltons Work Phone: [facility] 05-19-2023 15:36-0500 Heart rate 95 /min DO Matthew Miltons Work Phone: [facility] 05-19-2023 15:36-0500 Respiratory rate 16 /min DO Matthew Miltons Work Phone: [facility] 05-19-2023 15:36-0500 SaO2% (BldA) [Mass fraction] 99 % DO Matthew Miltons Work Phone: [facility] 05-19-2023 15:36-0500 Systolic blood pressure 109 mm[Hg] DO Matthew Miltons Work Phone: [facility] 05-19-2023 12:39-0500 Body height 165.1 cm DO Matthew Lemus Work Phone: [facility] 05-19-2023 12:39-0500 Body weight 70.76 kg DO Matthew Lemus Work Phone: [facility] 05-10-2023 11:11-0500 Diastolic blood pressure 78 mm[Hg] Rishi MARSHALL [facility] 05-10-2023 11:11-0500 Heart rate 72 /min Rishi MARSHALL [facility] 05-10-2023 11:11-0500 Systolic blood pressure 117 mm[Hg] Rishi MARSHALL [facility] 04-27-2023 13:30-0500 Body height 166.37 cm Imad Asaad Other [employer] Other 04-27-2023 13:30-0500 Body mass index (BMI) [Ratio] 25.71 kg/m2 Imad Asaad Other [employer] Other 04-27-2023 13:30-0500 Body weight 71.17 kg Imad Asaad Other [employer] Other 02-11-2023 18:20-0400 Body height 166.37 cm Sarah Aliceamond Other [employer] Other 02-11-2023 18:20-0400 Body mass index (BMI) [Ratio] 27.69 kg/m2 Sarah Monica Other [employer] Other 02-11-2023 18:20-0400 Body temperature 98.1 [degF] Sarah Monica Other [employer] Other 02-11-2023 18:20-0400 Body weight 76.66 kg Sarah Monica Other [employer] Other 02-11-2023 18:20-0400 Diastolic blood pressure 78 mm[Hg] Sarah Monica Other [employer] Other 02-11-2023 18:20-0400 Respiratory rate 18 /min Sarah Monica Other [employer] Other 02-11-2023 18:20-0400 SaO2% (BldA) [Mass fraction] 99 % Sarah Monica Other [employer] Other 02-11-2023 18:20-0400 Systolic blood pressure 116 mm[Hg] Sarah Monica Other [employer] Other 02-06-2023 07:30-0400 Body temperature 98.1 [degF] DO Matthew Lemus Work Phone: [facility] 02-06-2023 07:30-0400 Diastolic blood pressure 60 mm[Hg] DO Matthew Miltons Work Phone: [facility] 02-06-2023 07:30-0400 Heart rate 83 /min DO Matthew Miltons Work Phone: [facility] 02-06-2023 07:30-0400 Respiratory rate 18 /min DO Matthew Lemus Work Phone: [facility] 02-06-2023 07:30-0400 SaO2% (BldA) [Mass fraction] 97 % DO Matthew Lemus Work Phone: [facility] 02-06-2023 07:30-0400 Systolic blood pressure 102 mm[Hg] DO Matthew Lemus Work Phone: [facility] 02-03-2023 14:17-0400 Body height 165.1 cm DO Matthew Lemus Work Phone: [facility] 02-02-2023 23:53-0400 Body weight 74.15 kg DO Matthew Lemus Work Phone: [facility] 06-30-2022 23:12-0500 Diastolic blood pressure 56 mm[Hg] Courtney Hernandez MD Work Phone: [employer] 06-30-2022 23:12-0500 Heart rate 88 /min Courtney Hernandez MD Work Phone: [facility] 06-30-2022 23:12-0500 Respiratory rate 16 /min Courtney Hernandez MD Work Phone: [facility] 06-30-2022 23:12-0500 Systolic blood pressure 100 mm[Hg] Courtney Hernandez MD Work Phone: [facility] 06-30-2022 22:21-0500 Body height 165.1 cm Courtney Hernandez MD Work Phone: [facility] 06-30-2022 21:13-0500 SaO2% (BldA) [Mass fraction] 98 % Courtney Hernandez MD Work Phone: [facility] [employer] 06-30-2022 18:31-0500 Body mass index (BMI) [Ratio] 28.96 kg/m2 Courtney Hernandez MD Work Phone: [facility] [employer] 06-30-2022 18:31-0500 Body weight 78.93 kg Courtney Hernandez MD Work Phone: [facility] [employer] 06-30-2022 18:27-0500 Body temperature 98.4 [degF] Courtney Hernandez MD Work Phone: [employer] 06-17-2022 17:10-0500 Diastolic blood pressure 65 mm[Hg] Bridgette [employer] 06-17-2022 17:10-0500 Systolic blood pressure 114 mm[Hg] Bridgette GuillaumencMobile [employer] 06-17-2022 17:10-0500 Systolic blood pressure 110 mm[Hg] Bridgette Dejesushard [employer] 06-17-2022 17:00-0500 Body height 166.37 cm Bridgette Ortega Yousif [employer] [facility] 06-17-2022 17:00-0500 Body mass index (BMI) [Ratio] 28.43 kg/m2 Bridgette [employer] 06-17-2022 17:00-0500 Body surface area Derived from formula 1.91 m2 Bridgette Dejesushard [employer] [facility] 06-17-2022 17:00-0500 Body weight 78.7 kg Bridgette Ortega La Más Mona [facility] 06-17-2022 17:00-0500 Body weight 0.1 {percentile} Brigdette Debbie [facility] 06-17-2022 17:00-0500 Diastolic blood pressure 70 mm[Hg] Bridgette Ortega [employer] 06-17-2022 17:00-0500 Heart rate 72 /min Bridgette Ortega [employer] 06-17-2022 17:00-0500 Systolic blood pressure 118 mm[Hg] Bridgette [employer] 06-15-2022 17:35-0500 Body temperature 98.1 [degF] Maricel [employer] 06-15-2022 17:35-0500 Body weight 77.57 kg [employer] 06-15-2022 17:35-0500 Diastolic blood pressure 62 mm[Hg] [employer] 06-15-2022 17:35-0500 Heart rate 80 /min [employer] 06-15-2022 17:35-0500 Respiratory rate 16 /min [employer] 06-15-2022 17:35-0500 Systolic blood pressure 110 mm[Hg] [employer] 05-17-2022 11:45-0500 SaO2% (BldA) [Mass fraction] 98 % [employer] 05-17-2022 10:59-0500 Body height 166.37 cm [employer] 05-17-2022 10:59-0500 Body mass index (BMI) [Ratio] 28.19 kg/m2 [employer] 05-17-2022 10:59-0500 Body surface area Derived from formula 1.9 m2 Maricel [employer] 05-17-2022 10:59-0500 Body temperature 98.5 [degF] Maricel [employer] 05-17-2022 10:59-0500 Body weight 78.02 kg Maricel [employer] 05-17-2022 10:59-0500 Body weight 0.1 {percentile} Maricel [employer] 05-17-2022 10:59-0500 Diastolic blood pressure 60 mm[Hg] Maricel [employer] 05-17-2022 10:59-0500 Heart rate 90 /min Maricel [employer] 05-17-2022 10:59-0500 Respiratory rate 18 /min Maricel [employer] 05-17-2022 10:59-0500 Systolic blood pressure 112 mm[Hg] Maricel [employer] 02-10-2022 20:45-0400 Diastolic blood pressure 64 mm[Hg] DO Matthew Lemus Work Phone: [facility] 02-10-2022 20:45-0400 Heart rate 81 /min DO Matthew Miltons Work Phone: [facility] 02-10-2022 20:45-0400 Respiratory rate 16 /min DO Matthew Marlenyhas Work Phone: [facility] 02-10-2022 20:45-0400 SaO2% (BldA) [Mass fraction] 99 % DO Matthew Marlenyhas Work Phone: [facility] 02-10-2022 20:45-0400 Systolic blood pressure 100 mm[Hg] DO Matthew Marlenyhas Work Phone: [facility] 02-10-2022 14:17-0400 Body height 165.1 cm DO Matthew Lemus Work Phone: [facility] 02-10-2022 14:17-0400 Body weight 81.64 kg DO Matthew Lemus Work Phone: [facility] 02-09-2022 10:01-0400 Body height 166.37 cm Kaleigh Cloze 02-09-2022 10:01-0400 Diastolic blood pressure 64 mm[Hg] Kaleigh Guevara [facility] 02-09-2022 10:01-0400 Heart rate 120 /min Kaleigh Guevara [facility] 02-09-2022 10:01-0400 Systolic blood pressure 118 mm[Hg] Kaleigh Guevara [facility] 01-29-2022 11:30-0400 Body height 166.37 cm [facility] 01-29-2022 11:30-0400 Diastolic blood pressure 62 mm[Hg] Bridgette Lewis [facility] 01-29-2022 11:30-0400 Heart rate 100 /min [facility]ko [facility] 01-29-2022 11:30-0400 Systolic blood pressure 114 mm[Hg] Bridgette Lewis [facility] 01-25-2022 10:30-0400 Body height 166.37 cm Tae Natarajan Other [employer] Other 01-25-2022 10:30-0400 Body mass index (BMI) [Ratio] 29.49 kg/m2 Tae Natarajan Other [employer] Other 01-25-2022 10:30-0400 Body temperature 97.8 [degF] Tae Stanleyrewilliam Other [employer] Other 01-25-2022 10:30-0400 Body weight 81.65 kg Tae Stanleyrer Other [employer] Other 01-25-2022 10:30-0400 Diastolic blood pressure 64 mm[Hg] Tae Stanleyrer Other [employer] Other 01-25-2022 10:30-0400 SaO2% (BldA) [Mass fraction] 99 % Tae Natarajan Other [employer] Other 01-25-2022 10:30-0400 Systolic blood pressure 110 mm[Hg] Tae Stanleyrer Other [employer] Other 01-19-2022 10:59-0400 Body height 166.37 cm [facility] 01-19-2022 10:59-0400 Body mass index (BMI) [Ratio] 29.5 kg/m2 Bridgette [employer] 01-19-2022 10:59-0400 Body surface area Derived from formula 1.94 m2 Bridgette Lewis [employer] 01-19-2022 10:59-0400 Body weight 81.65 kg Bridgette Debbie [facility] 01-19-2022 10:59-0400 Diastolic blood pressure 72 mm[Hg] Bridgette Lewis [employer] 01-19-2022 10:59-0400 Heart rate 112 /min Bridgette Ortega [facility] [employer] 01-19-2022 10:59-0400 Systolic blood pressure 114 mm[Hg] Bridgette Ortega [place] [email or web address] 10-11-2021 18:26-0400 Diastolic blood pressure 77 mm[Hg] Matthew Lemus Work Phone: [employer] 10-11-2021 18:26-0400 Systolic blood pressure 130 mm[Hg] Matthew Lemus Work Phone: [employer] 10-11-2021 14:00-0400 Body mass index (BMI) [Ratio] 28.46 kg/m2 Matthew Lemus Work Phone: [employer] 10-11-2021 14:00-0400 Body temperature 97.81 [degF] Matthew Lemus Work Phone: [employer] 10-11-2021 14:00-0400 Body weight 77.56 kg Matthew Lemus Work Phone: [employer] 10-11-2021 14:00-0400 Heart rate 95 /min Matthew Lemus Work Phone: [employer] 10-11-2021 14:00-0400 Respiratory rate 16 /min Matthew Lemus Work Phone: [employer] 10-11-2021 14:00-0400 SaO2% (BldA) [Mass fraction] 98 % Matthew Lemus Work Phone: [employer] 09-29-2021 13:04-0400 Blood Pressure Location Rishi MARSHALL [facility] 09-29-2021 13:04-0400 Diastolic blood pressure 83 mm[Hg] Rishi MARSHALL [facility] 09-29-2021 13:04-0400 Heart rate 100 /min Rishimaricel MARSHALL [facility] Amira 09-29-2021 13:04-0400 Systolic blood pressure 124 mm[Hg] Rishi MARSHALL [facility] Amira 09-04-2021 09:22-0400 Blood Pressure Location [facility] 09-04-2021 09:22-0400 Diastolic blood pressure 67 mm[Hg] Rishi MARSHALL [facility] Dina 09-04-2021 09:22-0400 Heart rate 78 /min Rishi MARSHALL [facility] Dina 09-04-2021 09:22-0400 Respiratory rate 16 /min Rishimaricel MARSHALL [facility] 09-04-2021 09:22-0400 Systolic blood pressure 97 mm[Hg] [facility]icel [facility] 03-16-2020 15:12-0400 BMI (Body Mass Index) 25.96 kg/m2 [facility] 03-16-2020 15:12-0400 Body Temperature 99 [degF] [facility] 03-16-2020 15:12-0400 Body weight 70.76 kg [facility] , [place] 03-16-2020 15:12-0400 BP Diastolic 69 mm[Hg] [facility] [place] , [place] 03-16-2020 15:12-0400 BP Systolic 125 mm[Hg] Catracho Parisi [place] 03-16-2020 15:12-0400 Pulse (Heart Rate) 77 /min Catracho Parisi [facility] 03-16-2020 15:12-0400 Pulse Oximetry 99 % [place] 03-16-2020 15:12-0400 Respiratory Rate 18 /min Catracho Parisi [facility] 10-05-2019 13:30-0400 Body Temperature 98.1 [degF] [place] 10-05-2019 13:30-0400 BP Diastolic 72 mm[Hg] [place] 10-05-2019 13:30-0400 BP Systolic 110 mm[Hg] [place] 10-05-2019 13:30-0400 Pulse (Heart Rate) 76 /min [place] 10-05-2019 13:30-0400 Pulse Oximetry 100 % [place] 10-05-2019 13:30-0400 Respiratory Rate 18 /min [place] 10-05-2019 10:26-0400 BMI (Body Mass Index) 24.37 kg/m2 [place] 10-05-2019 10:26-0400 Body weight 68.49 kg [place] 10-05-2019 10:26-0400 Height 167.6 cm [place] Encounters Encounter Date Encounter Type Care Provider Facility Start: 11-08-2023 ambulatory Rishi Georgei ty:[facility] Start: 11-01-2023 End: 11-01-2023 ambulatory CASEY DAVIDSON Not Available Start: 09-27-2023 End: 09-27-2023 ambulatory Rishi MARSHALL Facility:[facility] Start: 09-27-2023 End: 09-27-2023 Patient encounter procedure Rishi MARSHALL [facility] Start: 08-04-2023 End: 08-04-2023 ambulatory AUDELIA HOBBS Not Available Start: 07-27-2023 End: 07-27-2023 ambulatory CASEY LETY Not Available Start: 07-07-2023 End: 07-07-2023 ambulatory REPLACED BY [facility] Start: 07-07-2023 End: 07-07-2023 Office outpatient visit 25 minutes Matthew Maury Karineoliva DO Work Phone: [facility] Comment on above: Bipolar 1 disorder ( [facility]) (Primary Dx); Oropharyngeal dysphagia; Generalized anxiety disorder with panic attacks Start: 07-04-2023 End: 07-04-2023 ambulatory CASEY LETY Not Available Start: 06-29-2023 End: 06-29-2023 ambulatory CASEY LETY Not Available Start: 06-13-2023 End: 06-13-2023 ambulatory CASEY LETY Not Available Start: 06-02-2023 End: 06-02-2023 ambulatory JORGE SIGALA [facility] Start: 05-19-2023 End: 05-19-2023 ambulatory Imad Asaad Facility:[facility] Start: 05-19-2023 End: 05-19-2023 Admission to same day surgery center DO Matthew Lemus Work Phone: [facility] Work Phone: Start: 05-19-2023 End: 05-19-2023 ambulatory DO [facility] Lemus [facility]: [facility] [facility] Work Phone: Start: 05-17-2023 End: 05-17-2023 ambulatory Imad Asaad Other [employer] Other Start: 05-17-2023 Telephone encounter Imad Asaad [facility] Start: 05-12-2023 End: 05-12-2023 ambulatory Imad Asaad Facility:[facility] Start: 05-12-2023 End: 05-12-2023 ambulatory DO Matthew Lemus Work Phone: [facility] Work Phone: Start: 05-12-2023 End: 05-12-2023 Patient encounter procedure DO Matthew Lemus Work Phone: [facility] [place] Work Phone: Start: 05-10-2023 End: 05-10-2023 ambulatory BRIDGETTE LEWIS Facility: [facility] Start: 05-10-2023 End: 05-10-2023 Patient encounter procedure Rishi Ghosh [facility] Start: 04-27-2023 End: 04-27-2023 ambulatory Imad Asaad Other [employer] Other Start: 04-27-2023 Office outpatient ne w 45 minutes Imad Asaad [facility] Start: 04-14-2023 End: 04-14-2023 ambulatory Rishimaricel MARSHALL Facility:[id number] Start: 03-10-2023 End: 03-10-2023 Emergency department patient visit [facility] Start: 02-11-2023 End: 02-11-2023 ambulatory Sarah Anderson Other [employer] Other Start: 02-11-2023 Office outpatient visit 15 minutes Sarah Anderson [facility] Start: 02-03-2023 Telephone encounter Christine Macias DO Work Phone: Gastroenterology Comment on above: Appointment Start: 02-02-2023 End: 02-06-2023 Evaluation and management of inpatient Karri Asad Facility:[facility] Start: 02-02-2023 End: 02-06-2023 Evaluation and management of inpatient DO Matthew Lemus Work Phone: [facility] Work Phone: Start: 02-02-2023 ambulatory Casper Arteaga Facility:[facility] Start: 09-23-[address] CASEY DAVIDSON . Facili ty:[facility]1 Start: 09-16-2022 End: 09-16-[address] BRIDGETTE KRAUSE . Facility:[facility] Start: 09-04-2022 End: 09-04-2022 ambulatory CHUY MCNAMARA Facility:[facility] Start: 08-30-2022 End: 08-31-[address] CASEY DAVIDSON . Facility:[facility] Start: 08-17-2022 End: 08-18-[address] CASEY DAVIDSON . Facility:[facility] Start: 08-10-2022 End: 08-11-2022 ambulatory CASEY DAVIDSON [facility] Start: 07-21-2022 End: 07-21-[address] CASEY DAVIDSON . Facility:[facility] Start: 07-20-2022 End: 07-21-[address] CASEY DAVIDSON . Facility:[facility] Start: 07-06-2022 End: 07-06-[address] MATTHEW LEMUS Facility:[facility] Start: 06-30-2022 End: 07-01-2022 ambulatory [facility] Start: 06-30-2022 End: 07-01-2022 Emergency department patient visit Courtney Hernandez MD Work Phone: [facility] Labor and Delivery Comment on above: Hyperemesis [...] surgery center DO Matthew Lemus Work Phone: [facility] Start: 02-09-2022 Patient encounter procedure Kaleigh Guevara [facility] Start: 02-09-2022 Periodic preventive med est patient 18-39 yrs Kaleigh Guevara Other [facility] Start: 02-04-2022 Encounter for genera l adult medical examination without abnormal findings Bridgette Lewis [facility] Start: 02-04-2022 Lab Bridgette lindsay Other [facility] Start: 02-04-2022 Office Services Kaleigh Hernandez ams Other [facility] Start: 01-29-2022 Office outpatient visit 15 minutes Bridgette Lewis Other [facility] Start: 01-25-2022 End: 01-25-2022 ambulatory Tae Natarajan Other [employer] Other Start: 01-25-2022 Office outpatient ne w 45 minutes Tae Natarajan [facility] Vascular Surgery Start: 01-19-2022 Office outpatient ne w 30 minutes Bridgette Adarsh Lewis Other [facility] Office Start: 12-17-2021 Encounter for genera l adult medical examination without abnormal findings [facility] Start: 12-04-2021 End: 12-05-[address] MATTHEW LEMUS Facility:[facility]1 Start: 11-14-2021 End: 11-14-[address] MATTHEW LEMUS Facility:[facility] Start: 10-12-2021 End: 10-12-2021 Subsequent hospital visit by physician Matthew Lemus Work Phone: [facility] Laboratory Start: 10-11-2021 End: 10-11-2021 Emergency department patient visit Matthew Lemus Work Phone: [facility] ED Comment on above: Lower abdominal pain (Primary Dx) Start: 10-09-2021 End: 10-10-[address] MATTHEW LEMUS Facility:[facility] Start: 09-29-2021 End: 09-29-2021 Patient encounter procedure Rishi MARSHALL [facility] Start: 09-04-2021 End: 09-04-2021 Patient encounter procedure Rishi MARSHALL [facility] Start: 03-16-2020 End: 03-16-2020 Emergency department patient visit Catracho Parisi Work Phone: [facility] ED Comment on above: Viral URI with cough (Primary Dx) Start: 03-07-2020 End: 03-07-2020 [facility] Covid Screening Comment on above: Acute frontal sinusi tis, recurrence not specified Start: 03-03-2020 End: 03-03-2020 Subsequent hospital visit by physician Lisseth MAGALLANES Laboratory Comment on above: Gross hematuria Start: 10-12-2019 End: 10-15-2019 Patient encounter procedure [facility] Start: 10-12-2019 End: 10-14-2019 Subsequent hospital visit by physician Juan A Laguer[facility] 2 [facility] Comment on above: Intractable nausea a nd vomiting Start: 10-05-2019 End: 10-05-2019 Patient encounter procedure [facility] Start: 10-05-2019 End: 10-05-2019 Subsequent hospital visit by physician Toño Blanc Work Phone: [facility] Start: 10-03-2019 End: 10-04-2019 Patient encounter procedure NIKOLAIRojelio RUBIO [facility] Start: 10-03-2019 End: 10-03-2019 Subsequent hospital visit by physician Lisseth [place] [facility] Start: 10-02-2019 End: 10-02-2019 Subsequent hospital visit by physician Tonio Swiftid19 Pat Screening Schedule [facility] Pre-Admit Testing Comment on above: No Show Start: 02-08-2019 End: 02-10-2019 Subsequent hospital visit by physician Khalida Grey Dr Room 2 [facility] Radiology Comment on above: Gross hematuria; [...] 06-17-2022 Basic metabolic panel calcium total Ravinder ko Debbie Start: 06-17-2022 Docrev cur meds by eli clin Bridgette mcarthur Start: 06-17-2022 Erythrocyte mean corpuscular volume determination Bridgette Lewis Start: 06-17-2022 Urinalysis, automated Bridgette Lewis Start: 06-15-2022 Docrev cur meds by eli clin Maricel Stafford Start: 06-15-2022 Spirometry for bronchospasm with prolonged evaluation after bronchodilator Bridgette Lewis Start: 05-17-2022 Docrev cur meds by eli clin Maricel Stafford Start: 05-17-2022 Measurement of [...] 02-04-2022 Radiologic exam chest 2 views Bridgette Ri claribel Start: 02-04-2022 Thyroid stimulating hormone measurement Kaleigh Guevara Start: 02-04-2022 Urinalysis, automated Kaleigh Guevara Start: 01-29-2022 Docrev cur meds by [facility] mcarthur Start: 01-19-2022 Docrev cur meds by [facility] Bridgette mcarthur Start: 01-19-2022 Ketorolac tromethamine inj Bridgette Maricelrojelio tts Start: 01-19-2022 Therapeutic prophylactic/dx injection subq/im Bridgette Debbie Start: 01-05-2022 Skin test for tuberculosis, Bhumika test Start: 12-23-2021 Skin test for tuberculosis, Bhumika test Start: 10-12-2021 Gonadotropin chorionic quantitative Matthew Mendiola [facility] Work Phone: Start: 10-11-2021 Ct abdomen & pelvis w/contrast material [facility] Work Phone: Start: 10-11-2021 Assay of lipase [facility] Work Phone: Start: 10-11-2021 Urinalysis microscopic only [facility] Work Phone: Start: 10-11-2021 Urine test visual color cmprsn meths [facility] Work Phone: Start: 09-29-2021 Cystoscopy Rishi MARSHALL [...] BLANC Start: 10-05-2019 Continuous pulse oximetry TOÑO Mcarthur Start: 10-05-2019 ENCOURAGE DEEP BREATHING AND [...] Blanc Work Phone: Start: 10-02-2019 COVID-19 BRIANAVIVIENNE ZEEGUI Start: 10-02-2019 COVID-19 Nikolai Messi Work Phone: Start: 02-08-2019 Radiologic exam abdomen [...] Td Vaccines (10 - Td or Tdap) [facility] Start: 04-09-2026 HIV screen HIV screen [facility] [place], [place] Comment on above: Postponed from 2012 (Unavailable) Start: 04-09-2026 HIV screening HIV screen [facility] Comment on above: Postponed from 2012 (Unavailable) Start: 11-10-2025 DTaP/Tdap/Td vaccine (5 - Td or Tdap) DTaP/Tdap/Td vaccine (5 - Td or Tdap) [facility] Start: 11-10-2025 DTaP/Tdap/Td vaccine (6 - Tdap) DTaP/Tdap/Td vaccine (6 - Tdap) [place] Start: 07-07-2024 Adult BMI Screening Adult BMI Screening [facility] Start: 07-07-2024 Depression Screening Depression Screening [facility] Start: 07-07-2024 Tobacco Screening Tobacco Screening [facility] Start: 05-19-2023 [facility] Start: 02-06-2023 [facility] Start: 02-02-2023 Hospital admission [facility] Start: 01-28-2023 COVID-19 Vaccine () COVID-19 Vaccine () [facility] Start: 01-28-2023 Influenza vaccination [facility] Start: 08-09-2022 Lipid panel Lipid panel [facility] Start: 08-09-2022 Transferase alanine amino alt sgpt ALT [email or web address] Start: 08-09-2022 Transferase aspartate amino ast sgot AST [facility] Start: 06-21-2022 Iv infusion hydration initial 31 min-1 hour IV HYDRATION,INITIAL,31 MINUTES TO 1 HOUR [facility] Start: 06-17-2022 Basic metabolic panel calcium total Chem 8 [facility] Start: 06-15-2022 Brncdilat rspse spmtry pre&post-brncdilat admn Spirometry with bronchodilator [facility] Start: 05-30-2022 DEPRESSION ASSESSMENT DEPRESSION ASSESSMENT [facility] Start: 05-17-2022 Nitric oxide gas determination FENO [facility] Start: 04-03-2022 Depression Monitoring Depression Monitoring [facility] Start: 03-29-2022 Gonadotropin chorionic quantitative Beta HCG Quantitative [facility] Start: 03-17-2022 Gonadotropin chorionic quantitative Beta HCG Quantitative [facility] Start: 02-10-2022 [facility] Work Phone: Start: 02-04-2022 Assay of thyroid stimulating hormone tsh TSH [facility] Start: 02-04-2022 Blood count complete automated CBC PLATELET COUNT; AUTOMATED [facility] Start: 02-04-2022 Comprehensive metabolic panel Comp [facility] Start: 02-04-2022 Lipid panel Lipid panel [employer] Start: 02-04-2022 Urnls dip stick/tablet rgnt auto w/o microscopy UA [facility] Start: 02-04-2022 Chest PA & LAT [email or web address] Start: 01-19-2022 Therapeutic prophylactic/dx injection subq/im Sub Q/ IM injection [facility] Start: 12-28-2021 Influenza vaccination Flu vaccine (#1) [facility] Start: 12-23-2021 Skin test tuberculosis intradermal PPD (Skin test; tuberculosis, intradermal) [facility] Start: 07-29-2021 COVID-19 Vaccine (3 - Booster for Pfizer series) COVID-19 Vaccine (3 - Booster for Pfizer series) [employer] Start: 05-12-2021 COVID-19 Vaccine (5 - Booster) COVID-19 Vaccine (5 - Booster) [employer] Start: 03-03-2020 End: 03-03-2020 Office Visit 03/03/2020 Office Visit Urology Jose Lala MD [address] [place] [address], [address] [place] [id number] [facility] Start: 02-07-2020 Chlamydia screen Chlamydia screen [place], [place] Start: 02-07-2020 Screening for Chlamydia trachomatis Chlamydia screen [facility] Start: 01-29-2020 Influenza vaccination [place] Start: 11-04-2019 Chlamydia screen Chlamydia screen [place], [place] Start: 10-05-2019 End: 10-05-2019 Hospital Encounter [facility] Comment on above: EGD ESOPHAGOGASTRODUODENOSCOPY Start: 02-20-2019 End: 02-20-2019 Office Visit 02/20/2019 Office Visit 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, BUSINESS RISK ANALYST - [employer] MERCHANT [address] [facility] [address] [place] [id number] [facility] Start: 02-08-2019 End: 02-08-2019 Appointment 02/08/2019 Appointment Radiology [facility] Start: 01-28-2019 Influenza vaccination Flu vaccine (#1) [place] Start: 2018 Cervical cancer screen Cervical cancer screen [place], [place] Start: 2018 PAP TESTING PAP TESTING [facility] Start: 2018 Screening for malignant neoplasm of cervix [facility] Start: 2016 Urine microalbumin profile DTAP,TDAP,TD (1 - Tdap) [facility] Start: 2015 Adult BMI Follow Up Plan Adult BMI Follow Up Plan [facility] Start: 2015 Hepatitis C screening Hepatitis C screen [facility] Start: 2015 HEPATITIS C SCREENING HEPATITIS C SCREENING [facility] Start: 2015 HIV SCREENING HIV SCREENING [facility] Start: 02-05-2014 Varicella vaccine (2 of 2 - 13+ 2-dose series) Varicella vaccine (2 of 2 - 13+ 2-dose series) [facility] Start: 2012 HPV vaccine (1 - Female 3-dose series) HPV vaccine (1 - Female 3-dose series) [place] Start: 2011 PEDS TO ADULT TRANSITION ANNUAL ASSESSMENT PEDS TO ADULT TRANSITION ANNUAL ASSESSMENT [facility] Start: 2010 Varicella Vaccine (1 of 2 - 13+ 2-dose series) Varicella Vaccine (1 of 2 - 13+ 2-dose series) [place] Start: 2009 PEDS TO ADULT TRANSITION INITIAL DISCUSSION PEDS TO ADULT TRANSITION INITIAL DISCUSSION [facility] Start: 2008 HPV vaccine (1 - 2-dose series) HPV vaccine (1 - 2-dose series) [facility] Start: 2006 HPV VACCINE (1 - 2-dose series) HPV VACCINE (1 - 2-dose series) [facility] Start: 2003 Pneumococcal 0-64 years Vaccine (1 - PCV) Pneumococcal 0-64 years Vaccine (1 - PCV) [facility] Start: 2003 Pneumococcal 0-64 years Vaccine (1 of 1 - PPSV23) Pneumococcal 0-64 years Vaccine (1 of 1 - PPSV23) [place] Start: 1998 Varicella vaccine (1 of 2 - 2-dose childhood series) Varicella vaccine (1 of 2 - 2-dose childhood series) [place] Start: 1997 COVID-19 VACCINE (#1) COVID-19 VACCINE (#1) [facility] Start: 1997 HEPATITIS B (1 of 3 - 3-dose series) HEPATITIS B (1 of 3 - 3-dose series) [facility] End: 01-15-2019 Bacteria identified Cx Nom (U) Urine Culture Microbiology Routine Dysuria Gross hematuria 1 Occurrences starting 01/15/2019 until 01/15/2019 [place] Comment on above: 1 Occurrences starting 01/15/2019 until 01/15/2019 End: 02-06-2019 C.trachomatis N.gonorrhoeae DNA, Urine C.trachomatis N.gonorrhoeae DNA, Urine Microbiology Routine Gross hematuria Urgency of urination 1 Occurrences starting 02/06/2019 until 02/06/2019 [place] Comment on above: 1 Occurrences starting 02/06/2019 until 02/06/2019 C.trachomatis N.gono rrhoeae DNA, Urine C.trachomatis N.gonorrhoeae DNA, Urine Microbiology Routine Gross hematuria Urgency of urination 02/06/2019 12:22 PM EDT [place] COVID-19 [place] End: 10-02-2019 COVID-19 COVID-19 Lab Routine One Time for 1 Occurrences starting 10/02/2019 until 10/02/[facility] One Time for 1 Occurrences starting 09/2019 until 10/02/2019 End: 03-07-2020 COVID-19 Ambulatory COVID-19 Ambulatory Lab Routine Acute frontal sinusitis, recurrence not specified 1 Occurrences starting 03/07/2020 until 03/07/2020 [facility] [place] Comment on above: 1 Occurrences starting 03/07/2020 until 03/07/2020 COVID-19 Ambulatory COVID-19 Amb ulatory Lab Routine Acute frontal sinusitis, recurrence not specified 03/07/2020 11:12 AM EDT [facility] End: 03-16-2020 COVID-19, PCR COVID-19, PCR Lab Routine One Time for 1 Occurrences starting 03/16/2020 until 03/16/2020 [facility] [place] Comment on above: One Time for 1 Occurrences starting 02/27 until 03/16/2020 End: 03-03-2020 Culture, Urine Culture, Urine Microbiology Routine Gross hematuria 1 Occurrences starting 03/03/2020 until 03/03/2020 [facility] Comment on above: 1 Occurrences starting 03/03/2020 until 03/03/2020 Culture, Urine [place] End: 06-30-2022 Culture, Urine [facility] Work Phone: Comment on above: One Time for 1 Occurrences starting 05/2022 until 06/30/2022 H. PYLORI DETECTION [place] Comment on above: Release Upon Ordering for 1 Occurrences starting 10/05/2019 Initiate Oxygen Therapy Protocol Initiate Oxygen Therapy Protocol Respiratory Care Routine Daily until discontinued starting 10/05/2019 [facility] Comment on above: Daily until discontinued starting 2019 Patient Education Depression, Ad ult (DC) [facility] Behavioral Health DC Instructions [facility] Work Phone: Patient referral [facility] Work Phone: Phase I & II - metered glucose P hase I & II - metered glucose Point of Care Testing Routine As Needed until discontinued starting 10/05/2019 [facility] [place] Comment on above: As Needed until discontinued starting End: 10-05-2019 POC Urine Qual POC Urine Qual Point of Care Testing Routine One Time for 1 Occurrences starting 10/05/2019 until 10/05/2019 [place] Comment on above: One Time for 1 Occurrences starting 12/2019 until 10/05/2019 Surgical Pathology Surgical Path ology Lab Routine Release Upon Ordering for 1 Occurrences starting 10/05/2019 [place] Comment on above: Release Upon Ordering for 1 Occurrences starting 10/05/2019 End: 02-06-2019 Urine culture clean catch Urine culture clean catch Microbiology Routine Gross hematuria Urgency of urination 1 Occurrences starting 02/06/2019 until 02/06/2019 [place] Comment on above: 1 Occurrences starting 02/06/2019 until 02/06/2019 Urine culture clean catch Urine culture clean catch Microbiology Routine Gross hematuria Urgency of urination 02/06/2019 12:22 PM EDT [place] Immunizations Immunization Date Immunization Notes Care Provider Frank blanco 09-23-2022 RHO(D) immune globulin- IV or IM Matthew Yuhas DO Work Phone: [facility] 09-17-2022 RHO(D) immune globulin- IV or IM Matthew Yuhas DO Work Phone: [facility] 09-17-2022 tetanus toxoid, reduced diphtheria toxoid, and acellular pertussis vaccine, adsorbed Rishi MARSHALL [facility] 01-05-2022 Tubersol [facility] 12-23-2021 Tubersol [facility] [employer] 04-28-2021 influenza virus vaccine, unspecified formulation Rishi MARSHALL [facility] 04-28-2021 influenza, injectabl e, quadrivalent, preservative free Matthew Lemus DO Work Phone: [facility] 03-17-2021 COVID-19, Pfizer, 30mcg/0.3ml Bridgette Lewis [facility] [email or web address] 02-28-2021 SARS-CoV-2 (COVID-19 ) mRNA BNT-162b2 vax Rishi MARSHALL [facility] 02-27-2021 SARS-CoV-2 (COVID-19 ) Ad26 vaccine, recombinant Rishi MARSHALL [facility] 02-08-2021 SARS-CoV-2 (COVID-19 ) mRNA BNT-162b2 vax Rishimaricel MARSHALL [facility] 01-28-2021 SARS-CoV-2 (COVID-19 ) Ad26 vaccine, recombinant Rishi MARSHALL [facility] 01-20-2021 COVID-19, Pfizer, 30mcg/0.3ml Bridgette Lewis [facility] [email or web address] 05-02-2018 influenza virus vaccine, unspecified formulation [facility] [place] 01-27-2016 Influenza Vaccine, unspecified formulation [facility] [place] 01-27-2016 influenza virus vaccine, unspecified formulation Rishi MARSHALL [facility] 01-27-2016 influenza, seasonal, injectable, preservative free Matthew Marlenydiannes DO Work Phone: [facility] 12-29-2015 hepatitis B vaccine, adult dosage Rishimaricel MARSHALL [facility] 12-17-2015 hepatitis B vaccine, adult dosage Matthew Marlenydiannes DO Work Phone: [facility] 12-17-2015 hepatitis B vaccine, unspecified formulation [facility] [place] 11-26-2015 hepatitis B vaccine, adult dosage Rishi MARSHALL [facility] 11-11-2015 diphtheria, tetanus toxoids and acellular pertussis vaccine [facility] 11-11-2015 tetanus toxoid, reduced diphtheria toxoid, and acellular pertussis vaccine, adsorbed Rishi MARSHALL [facility] 01-08-2014 tetanus toxoid, reduced diphtheria toxoid, and acellular pertussis vaccine, adsorbed Rishi MARSHALL [facility] 01-08-2014 varicella virus vaccine Rishi MARSHALL [facility] 10-17-2002 diphtheria, tetanus toxoids and acellular pertussis vaccine, unspecified formulation Matthew Lemus DO Work Phone: [facility] 10-17-2002 DTaP, unspecified formulation Rishi MARSHALL [facility] 10-17-2002 measles, mumps and rubella virus vaccine [facility] 10-17-2002 poliovirus vaccine, inactivated [facility] 10-17-2002 poliovirus vaccine, unspecified formulation Matthew Miltonoliva DO Work Phone: [facility] 10-17-2002 tetanus toxoid, reduced diphtheria toxoid, and acellular pertussis vaccine, adsorbed Matthew Lemus DO Work Phone: [facility] 05-17-1998 haemophilus influenz ae type b vaccine, conjugate unspecified formulation Matthew Miltonoliva DO Work Phone: [facility] 05-17-1998 Hib, unspecified [facility], [place] 05-17-1998 poliovirus vaccine, inactivated [facility], [place] 03-27-1998 diphtheria, tetanus toxoids and acellular pertussis vaccine [place], [place] 03-27-1998 diphtheria, tetanus toxoids and acellular pertussis vaccine, unspecified formulation Matthew Lemus DO Work Phone: [facility] 03-27-1998 DTaP, unspecified formulation Rishi MARSHALL [facility] 03-27-1998 haemophilus influenz ae type b vaccine, conjugate unspecified formulation Matthew Lemus DO Work Phone: [facility] 03-27-1998 haemophilus influenz ae type b vaccine, HbOC conjugate Matthew Lemus DO Work Phone: [facility] 03-27-1998 Hib, unspecified [place] 03-27-1998 measles, mumps and rubella virus vaccine [place] 03-27-1998 tetanus toxoid, reduced diphtheria toxoid, and acellular pertussis vaccine, adsorbed Matthew Lemus DO Work Phone: [facility] 1997 diphtheria, tetanus toxoids and acellular pertussis vaccine [place], [place] 1997 diphtheria, tetanus toxoids and acellular pertussis vaccine, unspecified formulation Matthew Lemus DO Work Phone: [facility] 1997 DTaP, unspecified formulation Rishi MARSHALL [facility] 1997 haemophilus influenz ae type b conjugate and Hepatitis B vaccine Matthew Lemus DO Work Phone: [facility] 1997 haemophilus influenz ae type b vaccine, conjugate unspecified formulation Matthew Lemus DO Work Phone: [facility] 1997 hepatitis B vaccine, adult dosage Matthew Lemus Work Phone: [facility] Work Phone: 1995 hepatitis B vaccine, unspecified formulation [facility], [place] 1997 Hib, unspecified [facility], [place] 1997 poliovirus vaccine, inactivated [facility] [place] tetanus toxoid, reduced diphtheria toxoid, and acellular pertussis vaccine, adsorbed Matthew Lemus DO Work Phone: [facility] 1997 trivalent poliovirus vaccine, live, oral Matthew Miltons DO Work Phone: [facility] 1997 diphtheria, tetanus toxoids and acellular pertussis vaccine [facility], [place] 1997 diphtheria, tetanus toxoids and acellular pertussis vaccine, unspecified formulation Matthew Lemus DO Work Phone: [facility] 1997 DTaP, unspecified formulation [employer] [facility] 1997 haemophilus influenz ae type b vaccine, HbOC conjugate Matthew Lemus DO Work Phone: [facility] 1997 tetanus toxoid, reduced diphtheria toxoid, and acellular pertussis vaccine, adsorbed Matthew Lemus DO Work Phone: [facility] 1997 trivalent poliovirus vaccine, live, oral Matthew Miltons DO Work Phone: [facility] 1997 diphtheria, tetanus toxoids and acellular pertussis vaccine [facility] diphtheria, tetanus toxoids and acellular pertussis vaccine, unspecified formulation Matthew Miltons DO Work Phone: [facility] 1997 DTaP, unspecified formulation [employer] [facility] 1997 haemophilus influenz ae type b vaccine, conjugate unspecified formulation Matthew Lemus DO Work Phone: [facility] 1997 Hib, unspecified [place], [place] 1997 Hib, unspecified formulation Rishi MARSHALL [facility] 1997 poliovirus vaccine, inactivated [facility] [place] 1997 tetanus toxoid, reduced diphtheria toxoid, and acellular pertussis vaccine, adsorbed Matthew Lemus DO Work Phone: [facility] 1997 trivalent poliovirus vaccine, live, oral Matthew Lemus DO Work Phone: [facility] 1997 hepatitis B vaccine, adult dosage Matthew Lemus Work Phone: [facility] Work Phone: 1997 hepatitis B vaccine, pediatric or pediatric/adolescent dosage Rishi MARSHALL [facility] 1997 hepatitis B vaccine, unspecified formulation [facility] [place] 1997 hepatitis B vaccine, adult dosage Matthew Lemus Work Phone: [facility] Work Phone: 1997 hepatitis B vaccine, pediatric or pediatric/adolescent dosage Rishi MARSHALL [facility] 1997 hepatitis B vaccine, unspecified formulation [facility] [place] Payers Date Payer Category Payer Medicaid [id number] 2015 Unknown BCBS [place]BS - [place] P PO xxxxxxxxxxxx 2015-Present [address] [place] [address] xxxxxxxxxxxx [id number] 1997 Unknown [id number] 2.16.840.1.673394.3.579.2.177 1997 Unknown [id number] 2.16.840.1.024746.3.579.2.177 1997 Unknown [id number] 2.16.840.1.511398.3.579.2.175 1997 Unknown [id number] 2.16.840.1.960211.3.579.2.593 1997 Unknown [id number] 2.16.840.1.125988.3.579.2.593 1997 Unknown [id number] 2.16.840.1.705397.3.579.2.593 1997 Unknown [id number] 2.16.840.1.300168.3.579.2.593 1997 Unknown [id number] 2.16.840.1.537456.3.579.2.593 1997 Unknown [id number] 2.16.840.1.889268.3.579.2.593 1997 Unknown [id number] 2.16.840.1.816977.3.579.2.593 1997 Unknown [id number] 2.16.840.1.313320.3.579.2.593 1997 Unknown [id number] 2.16.840.1.490164.3.579.2.593 1997 Unknown [id number] 2.16.840.1.490689.3.579.2.593 1997 Unknown [id number] 2.16.840.1.124271.3.579.2.593 1997 Unknown [id number] 2.16.840.1.222051.3.579.2.593 1997 Unknown [id number] 2.16.840.1.452134.3.579.2.593 1997 Unknown [id number] 2.16.840.1.149849.3.579.2.593 1997 Unknown [id number] 2.16.840.1.282670.3.579.2.593 1997 Unknown [id number] 2.16.840.1.943483.3.579.2.593 1997 Unknown [id number] 2.16.840.1.405546.3.579.2.593 1997 Unknown [id number] 2.16.840.1.751270.3.579.2.593 1997 Unknown [id number] 2.16.840.1.456126.3.579.2.593 1997 Unknown [id number] 2.16.840.1.624312.3.579.2.173 1997 Unknown [id number] 2.16.840.1.561481.3.579.2.173 1997 Unknown [id number] 2.16.840.1.115749.3.579.2.173 1997 Unknown [id number] 2.16.840.1.350698.3.579.2.128 6 1997 Unknown [id number] 2.16.840.1.931087.3.579.2.128 6 1997 Unknown [id number] 2.16.840.1.515692.3.579.2.125 9 1997 Unknown [id number] 2.16.840.1.265354.3.579.2.125 9 1997 Unknown [id number] 2.16.840.1.466002.3.579.2.125 9 1997 Unknown [id number] 2.16.840.1.621063.3.579.2.125 9 1997 Unknown [id number] 2.16.840.1.488095.3.579.2.125 9 1997 Unknown [id number] 2.16.840.1.283736.3.579.2.125 9 1997 Unknown [id number] 2.16.840.1.371122.3.579.2.727 1997 Unknown [id number] 2.16.840.1.740825.3.579.2.727 1997 Unknown [id number] 2.16.840.1.765491.3.579.2.727 1997 Unknown [id number] 2.16.840.1.862490.3.579.2.727 1959 Self-pay [id number] 1959 Unknown [id number] 1959 Unknown [id number] 2.16.840.1.785207.3.441 1959 Unknown [id number] Unknown [id number] 2.16.840.1.849652.3.579.2.531 Unknown [id number] 2.16.840.1.414349.3.579.2.531 Unknown [id number] 2.16.840.1.094925.3.579.2.531 Unknown [id number] 2.840.1.914592.3.579.2.531 Social History Date Type Detail Facility Start: 02-06-2019 End: 05-10-2023 Tobacco smoking status NHIS Never smoker [place] Start: 02-06-2019 End: 04-26-2022 Alcohol intake No [place] Start: 1995 Sex Assigned At Not on file [place] Start: 07-31-2019 End: 10-05-2019 Alcohol intake Current non-drinker of alcohol (finding) [place] Exposure to SARS-CoV -2 (event) Unable to assess [facility] [place] Start: 03-03-2020 End: 11-10-2021 Tobacco use and exposure Never used [employer] [place] Ram[facility]rez Start: 03-03-2020 End: 07-07-2023 Alcohol intake Current drinker of alcohol (finding) [facility] [place] Start: 03-03-2020 Alcohol Comment occasional [place] Start: 10-01-2021 End: 06-30-2022 Exposure to SARS-CoV-2 (event) Not sure [place] Tobacco smoking status Never [facility] Start: 04-03-2021 History SDOH Financial 5 [employer] Work Phone: Start: 04-03-2021 History SDOH Food Worry 1 [employer] Work Phone: Start: 04-03-2021 History 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 2 [employer] Work Phone: Start: *Tobacco Ortega Isonas Start: 1995 Sex Assigned At Female [facility] Tobacco smoking stat [facility] Tobacco smoking consumption unknown [facility] Start: 11-10-2021 Tobacco smoking status [facility] Ex-smoker [facility] History of tobacco use Current smoker [facility] History of tobacco use Tobacco U se Types Packs/Day Years Used Date Smoking Tobacco: Former Vaping/E-cigarettes Smokeless Tobacco: Never [facility] Start: 04-26-2022 End: 07-07-2023 History of Social function [facility] Do you belong to any clubs or organizations such as buddhism groups, unions, fraternal or athletic groups, or school groups? No [facility] Are you now , , , , never or living with a partner? Living with partner [facility] How often to you hav e a drink containing alcohol? Never [facility] How hard is it for [...] [facility] Start: 04-26-2022 Education 16 [facility] Start: 06-07-2018 Alcohol Comment occasionally [facility] Goals Date Patient Goal Desired Activity /State Functional Status Date Assessment Result Facility 05-10-2023 Functional Status N/A [facility] 02-06-2023 Functional status Patient at Baseline [facility] Work Phone: Mental Status Date Assessment Result Facility 02-06-2023 Cognitive function Cognitive Sta tus Patient at Baseline [facility] Work Phone: Clinical Notes 09-04-2021 to 07-07-2023 Matthew Lemus, DO - 07/07/2023 10:30 AM EST Note Date & Type Note Facility 07-07-2023 History of Present illness Narrative IM PROGRESS NOTE Patient - Lulú Gaitan Age - 28 y.[facility]. [facility] 1995 [id number] & PLAN 1. Bipolar 1 disorder [...] disorder and anxiety and was admitted to [facility] for evaluation and adjustment of her [...] have CT scan and upper GI at [facility]. Both were termed normal except for changes related to her recent kidney stone and bladder manipulation. A review of systems was negative except for the following: General: sleep disturbance Psychiatric: anxiety, mood swings, and now seeing a new mental health provider (Nelly Pederson) out of [place]. Has recently had wholesale changes to her [...] Testing No results found. Matthew Lemus DO., BINDU [facility] Office: [phone] documented in this encounter [facility] 05-19-2023 History and physical note Note Date/Time May 19, 2023 1:38pm [facility] ENTER [address] [place] [address] Gastroenterology H&P Signed Patient: Lulú Gaitan MR#: [id number] : 1995 Acct:[id number] Age/Sex: 28 / F Adm Date: 3 Loc: Room: Type: [facility] Attending Dr: Fany Ceballos MD Copies [...] <Electronically signed by Fany Ceballos MD> 05/19/231337 [facility] Work Phone: 1(487) 535-871012-21-2023 [facility] Evaluation note* Encounter Date Diagnosis Assessment Notes Treatment Notes Treatment Clinical Notes Apr, Abnormal abdominal C T scan (ICD-10 - R93.5) Apr, Pyelonephritis of left kidney (ICD-10 - N12) [employer] Other 12-12-2023 Hospital Discharge instructions Patient Education [...] Follow these instructions at home: Medicines Take jvnq-yek-foumiqh and prescription medicines only as told by [...] or the blood stops without treatment. Take aodr-nyz-wkzwgyn and prescription medicines only as told by your health care provider. Drink enough fluid to keep your urine pale yellow. This information is not intended to replace advice given to you by your health care provider. Make sure you discuss any questions you have with your health care provider. Document Revised: 01/14/2021 Document Reviewed: 01/14/2021 [employer] Patient Education 2022 [employer]. Follow Up Care 05/06/2023 07:59:50 With:ROLANDO DEVLIN, Rishi Ghosh, URL Address: [facility] [address], [place] [address]- When:Within 4 Month(s) Comments:w/PVR [facility] 11-29-2023 Evaluation note* Encounter Date Diagnosis Assessment Notes Treatment Notes Treatment Clinical Notes Mar, Irritable bowel syndrome with constipation (ICD-10 - K58.1) Mar, Delayed gastric emptying (ICD-10 - K30) Mar, Vomiting (ICD-10 - R11.10) [employer] Other 09-15-2023 Evaluation note* Encounter Date Diagnosis [...] no improvement in 2 to 3 days [employer] Other 09-10-2023 Hospital Discharge instructions Additional Instructions Important Contact Information You can call [facility] at [phone] any time day or night if you [...] Text Line (available 20/12) text 4HOPE to [phone] [facility] Hope Line (available 8 a.m. Midnight) call [phone] ([phone]) [facility] Work Phone: 1(713) 153-736309-09-2023 Progress note Author Karri Kamara [facility] February 05, 2023 12:00pm Note Date/Time February 05, 2023 12:00pm [facility] ENTER [address] [place] [address] Psychiatry Progress Note Signed Patient: Lulú Gaitan MR#: [id number] : 1995 Acct:[id number] Age/Sex: 27 / F Adm Date: 3 Loc: Room: [address] [place] [address] Type : ADM IN Attending Dr: Karri Kamara MD Copies to: ~ Date of Service: 02/05/2023 Subjective Subjective Narrative: uLlú reported that she feels good today. She [...] signed by Karri Kamara MD> 02/05/23 1200 [facility] Work Phone: 1(614) 367-786309-08-2023 Progress note Author Karri Kamara [facility] February 04, 2023 1:43pm Note Date/Time February 04, 2023 1:44pm [facility] ENTER [address] [place] [address] Psychiatry Progress Note Signed Patient: Lulú Gaitan MR#: [id number] : 1995 Acct:[id number] Age/Sex: 27 / F Adm Date: 3 Loc: Room: [address] [place] [address] Type : ADM IN Attending Dr: Karri [...] Karri Kamara MD> 02/04/23 1343 [facility] Work Phone: 1(932) 200-608709-07-2023 Miscellaneous Notes* Telephone Encounter - Viviana David [...] list full name of hospital or facility)? [facility] If the patient had a gastric emptying [...] G/J Tube?No Preferred phone number for contact: [phone] documented in [address] [facility] History and physical note Author Karri Kamara [facility] February 03, 2023 11:58am Note Date/Time February 03, 2023 11:58am [facility] EN[facility] [address] [place] [address] Psychiatry H&P Signed Patient: Lulú Gaitan MR#: [id number] : 1995 Acct:[id number] Age/Sex: 27 / F Adm Date: 3 Loc: Room: [address] [place] [address] Type: ADM IN Attending Dr: Karri Kamara MD Copies to: MD Matthew Wyatt DO~ Date of Service: 02/03/2023 HPI History [...] States she recently saw her psychiatrist at [facility] and was restarted on Latuda. 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 Relationships: Patient states her boyfriend and [...] feel like current medical regimen is working [facility] Medical History (Updated 02/03/23 @ 10:00 by [...] Cloudy A Urine pH 6.0 Ur Specific Peck 1.027 Urine Protein 30 H Urine Glucose [...] Color Urine Appearance Urine pH Ur Specific Peck Urine Protein Urine Glucose (UA) Urine Ketones [...] explained Documented By: Karri Kamara MD 02/03/23 0852 Signed By: <Electronically signed by Karri Kamara MD> 02/03/23 5906 [facility] Work Phone: 1(796) 941-225802-02-2023 History of Present illness Narrative* Jenna Elliott [...] 11:40 PM EST Nurse at bedside from 3103-1601. Nurse pal[pates pt's abdomen when pt feeling [...] questions/concerns at this time. documented in this encounterSM[facility]ITAL[facility]rown[facility] Phone: 1(262) 507-389302-02-2023 Hospital Discharge instructions* Discharge Instructions* Jenna Elliott RN - 07/01/2022 12:27 AM EST OUTPATIENT DISCHARGE Dr. Miguel Aguilera [facility] Dr. Katelynn Leslie [facility] [address] [facility] [address] [place] Chyna Prakash [facility] [address] [place], [place] [id number] ACTIVITY LIMITATIONS: ( x )Up and about [...] LABOR AND DELIVERY . documented in this encounterSMYTH [facility] COMM[facility]OSPITAL[facility]rown[facility] Phone: 1(514) 776-377209-14-2022 History and physical note Author Tae Natarajan [facility] February 10, 2022 5:06pm Note Date/Time February 10, 2022 5:06pm [facility] EN[facility] [address] [place] [address] Vascular Surgery H&P Signed Patient: Lulú Gaitan MR#: [id number] : 1995 Acct:[id number] Age/Sex: 26 / F Adm Date: 2 Loc: Room: Type: [facility] Attending Dr: Tae Natarajan MD Copies [...] 150 mg PO HS 01/08/21 [History Confirmed 08/12/21] alprazolam 0.25 mg tablet (Xanax) 0.25 mg PO BID PRN Anxiety 02/10/22 [History Confirmed 02/10/22] aripiprazole 15 mg tablet (Abilify) 15 mg PO DAILY 02/10/22 [History Confirmed 02/10/22] tgucsaefgx-gvygefcokcvws-pfjoqzhv 50 mg-300 mg-40 mg capsule (Fioricet) 1 [...] signed by MD Tae Natarajan> 02/10/22 1706 [facility] Work Phone: 1(462) 929-891108-29-2022 Evaluation note* Encounter Date Diagnosis Assessment Notes [...] ahead with arteriogram and venogram as requested. [employer] Other 05-15-2022 Hospital Discharge instructions* Instructions* Christine Vazquez PA-C - 10/11/2021 Take ibuprofen pdtw-hud-fakwcjg 600 mg 3 times daily as needed for pain. Follow- up with your primary care provider and discuss additional testing if symptoms not improved. Return to the emergency room for any worsening symptoms. * Attachments The following attachments cannot be sent through Care Everywhere. * Pelvic Pain (Polish) documented in this [facility] Phone: [phone]) [phone] Hospital Discharge instructions Patient Education 09/29/2021 13:37:25 [...] Follow these instructions at home: Medicines Take wdcy-tpa-vkcdamh and prescription medicines only as told by [...] or the blood stops without treatment. Take izxo-adt-ykrvtjm and prescription medicines only as told by your health care provider. Drink enough fluid to keep your urine clear or pale yellow. This information is not intended to replace advice given to you by your health care provider. Make sure you discuss any questions you have with your health care provider. Document Released: 05/16/2006 Document Revised: 10/10/2019 Document Reviewed: 06/18/2017 [employer] Patient Education 2020 [employer]. Follow Up Care 09/22/2021 14:13:42 With:ROLANDO DEVLIN, Rishi Ghosh, URL Address: [facility] [address] , [place] [address]- Business (1) When: Unknown [facility] 04-08-2022 Hospital Discharge instructions Patient Education 09/04/2021 [...] including vitamins, herbs, eye drops, creams, and yydx-nek-szexadd medicines. Any problems you or family members [...] provider tells you to take them. ?Taking bdsc-rrq-chpppze medicines, vitamins, herbs, and supplements. Follow instructions [...] Follow these instructions at home: Medicines Take vtqk-npg-ixuubsi and prescription medicines only as told by [...] 05/13/2001 Document Revised: 05/08/2019 Document Reviewed: 05/08/2019 [employer] Patient Education 2020 [employer]. Follow Up Care 08/07/2021 15:47:45 With:ROLANDO DEVLIN, Rishi Ghosh, URL Address: [address] [place] [address]- When: Unknown Comments:will schedule Cysto [facility] discharge summary Author Karri Kamara [facility] February 06, 2023 11:04am Note Date/Time February 06, 2023 11:04am [facility] EN[facility] [address] [place] [id number] Discharge Summary Signed Patient: Lulú Gaitan MR#: [id number] : 1995 Acct:[id number] Age/Sex: 27 / F Adm Date: 3 Loc: Room: [address] [place] [address]: Karri Kamara MD Copies to: [...] States she recently saw her psychiatrist at [facility] and was restarted on Latuda. 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 Midnight) call [phone] ([phone]) Stand Alone Forms: Work/School Release Form Prescriptions: [...] Follow Up: [facility] [Other] (fax:[phone]) [facility] [Outside] Matthew Lemus DO [Primary Care Provider] - (Please contact for any medical needs or concerns) Documented By: Karri Kamara MD 02/06/23 110 Signed By: <Electronically signed by Karri Kamara MD> 02/06/23 110 [facility] Work Phone: Evaluation + Plan note No data available for this section [facility] evaluation + Plan note Future Appointments Appointment Date:02/05/2022 09:45:00 AM Scheduled Provider:Rishi MARSHALL MD Location:[facility] Appointment Type:URO Office Visit [facility] Evaluation + Plan note Future Appointments Appointment Date:09/27/2023 10:15:00 AM Scheduled Provider:Rishi MARSHALL MD Location:[facility] hospital Appointment Type:URO Office Visit [facility] evaluation note* Diagnosis Lower abdominal pain- Primary Abdominal pain, other specified site documented in this encounter [employer] Phone: evaluation note* Diagnosis Onset Date Resolution Status Hematuria acute [facility] Work Phone: evaluation note* Diagnosis Hyperemesis- Primary Persistent vomiting Pelvic cramping Unspecified symptom associated with female genital organs documented in this encounter [facility] Work Phone: evaluation note* Diagnosis Onset Date Resolution Status Bipolar 1 disorder acute Depression acute Major depressive disorder, recurrent acute Suicidal ideation acute [facility] Work Phone: evaluation noteNo assessment information available [facility] Work Phone: evaluation note* Diagnosis Bipolar 1 disorder ([facility])- Primary Oropharyngeal dysphagia Dysphagia, oropharyngeal phase Generalized [...] History umbilical hernia repair Hospitalization History 1 [facility] Hospitalization History as a child for stomach p [place] [employer] Other [facility] Narrative - Reported* Type Description Date Medical History migraine headache Medical History endometriosis Medical History PCOS Medical History borderline personality disorder Medical History bipolar Medical History anxiety Medical History chronic depression Surgical History laparoscopy x3 female Surgical History umbilical hernia repair Hospitalization History 1 [facility] 2020 Hospitalization History as a child for stomach p ain Hospitalization History LATUDA REACTION 1 [facility] 02/02/2023 [employer] Other Hospital Discharge instructions Additional Instructions Hold Metformin for 2 days. No heavy lifting of anything over 5 pounds. No pushing or pulling. No vigorous activity. Remove dressing in 24 hours.[facility] Work Phone: Hospital Discharge instructions Additional Instructions [...] NOT operate machinery such as power tools, [employer] mowers, Exel[employer]wers, sewing machines, etc. for 24 hours. - [...] problems. -Follow up with PCP. -Office number [phone]. [facility] Work Phone: Hospital Discharge instructions No data available for this section [facility] InstructionsNot on filedocumented in this encounter [facility] No data available for this section [facility] Assessments Diagnosis Gross hematuria Urgency of urination Diagnosis Gross hematuria Urgency of urination Diagnosis Gross hematuria Diagnosis Acute frontal sinusitis, recurrence not specified Diagnosis Viral URI with cough Acute upper respiratory infections of unspecified site Diagnosis Intractable nausea and vomiting Persistent vomiting Diagnosis Dysuria Gross hematuria Advance Directives No Advanced Directives Records FoundDocuments on File Type Date Recorded 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 Go to [email or web address] and sign in to your CrowdPlat account. Enter J454 in the Search Health Information box to learn more about Upper GI Endoscopy: What to Expect at Home. . 8399-3199 [employer]. Care instructions adapted under license by [employer]. This care instruction is for use with your licensed healthcare professional. If you have questions about a medical condition or this instruction, always ask your healthcare professional. [employer] disclaims any warranty or liability for your use of this information. Content Version: 9.9.444064; Last Revised: July 19, 2012 Upper GI [...] Where can you learn more? Go to [email or web address] and sign in to your CrowdPlat account. Enter J454 in the Search Health Information box to learn more about Upper GI Endoscopy: What to Expect at Home. . 7011-7100 [employer]. Care instructions adapted under license by [employer]. This care instruction is for use with your licensed healthcare professional. If you have questions about a medical condition or this instruction, always ask your healthcare professional. [employer] disclaims any warranty or liability for your use of this information. Content Version: 9.9.043127; Last Revised: July 19, 2012 Upper GI [...] Where can you learn more? Go to [email or web address] and sign in to your CrowdPlat account. Enter J454 in the Search Health Information box to learn more about Upper GI Endoscopy: What to Expect at Home. . 8647-3606 [employer]. Care instructions adapted under license by [employer]. This care instruction is for use with your licensed healthcare professional. If you have questions about a medical condition or this instruction, always ask your healthcare professional. [employer] disclaims any warranty or liability for your use of this information. Content Version: 9.9.531141; Last Revised: July 19, 2012 Upper GI [...] Where can you learn more? Go to [email or web address] and sign in to your CrowdPlat account. Enter J454 in the G[employer] Information box to learn more about Upper GI Endoscopy: What to Expect at Home. . 9242-6206 [employer]. Care instructions adapted under license by [employer]. This care instruction is for use with your licensed healthcare professional. If you have questions about a medical condition or this instruction, always ask your healthcare professional. [employer] disclaims any warranty or liability for your use of this information. Content Version: 9.9.033110; Last Revised: July 19, 2012 Upper GI [...] Where can you learn more? Go to [email or web address] and sign in to your CrowdPlat account. Enter J454 in the Search Health Information box to learn more about Upper GI Endoscopy: What to Expect at Home. . 6681-5016 [employer]. Care instructions adapted under license by [employer]. This care instruction is for use with your licensed healthcare professional. If you have questions about a medical condition or this instruction, always ask your healthcare professional. [employer] disclaims any warranty or liability for your use of this information. Content Version: 9.9.167818; Last Revised: July 19, 2012 Upper GI [...] Where can you learn more? Go to [email or web address] and sign in to your CrowdPlat account. Enter J454 in the Search Health Information box to learn more about Upper GI Endoscopy: What to Expect at Home. . 3938-6094 [employer]. Care instructions adapted under license by [employer]. This care instruction is for use with your licensed healthcare professional. If you have questions about a medical condition or this instruction, always ask your healthcare professional. [employer] disclaims any warranty or liability for your use of this information. Content Version: 9.9.616882; Last Revised: July 19, 2012 Upper GI [...] the day after the test, use an hyci-ktl-[id number] spray to numb your throat. Follow-up care [...] Where can you learn more? Go to [email or web address] and sign in to your CrowdPlat account. Enter J454 in the Search Health Information box to learn more about Upper GI Endoscopy: What to Expect at Home. If you do not have an account, please click on the Sign Up Now link. Current as of: January 07, 2019Content Version: 12.4 [employer]. Care instructions adapted under license by [employer]. If you have questions about a medical condition or this instruction, always ask your healthcare professional. [employer] disclaims any warranty or liability for your use of this information. documented in this encounter* Attachments The following attachments cannot be sent through Care Everywhere. * URI (Upper Respiratory Infection): Viral (Polish) documented in this encounter Summary Purpose Family [...] SCAN W EJECTION FRACTION Toño Blanc MD [address] [place] [address] Chief Complaint and Reason for Visit Chief [...] To Contact Diagnoses Dysphagia DX DYSPHAGIA Procedures NC ESOPHAGOGASTRODUODENOSCOPY TRANSORAL DIAGNOSTIC EGD ESOPHAGOGASTRODUODENOSCOPY Toño Blanc MD [address] [place] [address] [facility] Reason Comments Cough pt states onset last week. PT states she is taking Prednisone and Keflex for a sinus infection Status Reason Specialty Diagnoses / Procedures Referred By Contact Referred To Contact Not Required - [facility] Diagnoses Nausea with vomiting, unspecified Procedures HC NM HEPATOBILIARY IMAGING W PHARM Toño Blanc MD [address] [place] [address] [facility] Nuclear Medicine [address] [place] [id number] Reason Comments Abdominal Cramping onset this am [...] section and content) DATE CREATED AUTHOR 10/15/2019 [facility] DATE CREATED AUTHOR AUTHOR'S ORGANIZ ATION 03/07/2020 [facility] DATE CREATED AUTHOR AUTHOR'S ORGANIZ ATION 07/27/2021 [facility] DATE CREATED AUTHOR AUTHOR'S ORGANIZ ATION 09/24/2022 [facility] DATE CREATED AUTHOR AUTHOR'S ORGANIZ ATION 02/12/2023 [facility] DATE CREATED AUTHOR AUTHOR'S ORGANIZ ATION 03/12/2023 [facility] DATE CREATED AUTHOR AUTHOR'S ORGANIZ ATION 06/05/2023 [facility] DATE CREATED AUTHOR AUTHOR'S ORGANIZ ATION 07/08/2023 [facility] DATE CREATED AUTHOR AUTHOR'S ORGANIZ ATION 07/11/2023 [facility] DATE CREATED AUTHOR AUTHOR'S ORGANIZ ATION 11/02/2023 [facility] DATE CREATED AUTHOR AUTHOR'S ORGANIZ ATION 11/02/2023 [facility] Scheduled Active and Recently Administ ered [...] Kamara MD Admit Provider, Attending Provider Active 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 Specialty Start Date End Date Matthew Lemus [address] [place] [phone] PCP - General Internal Medicine 10/11/21 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 Specialty Start Date End Date Matthew Lemus [address] [place] [phone] PCP - General Internal Medicine 10/11/21 Team Status: Inactive Member Role Status Dates Matthew Lemus DO Primary Care Provider Active Tae Natarajan MD Attending Provider Active 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 Specialty Start Date End Date Bridgette Lewis MD [address] [place] [address] PCP - General Internal Medicine 06/30/22 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 Specialty Start Date End Date Agustin Ramos [address] [place] [phone] PCP - General 01/27/04 Team Status: Inactive Member Role Status Dates Matthew Lemus DO Primary Care Provider Active Fany Ceballos MD Attending Provider Active 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 FOR RECORDS PERTAINING TO PATIENTS WHO [...] BE BASED ON THE PRIMARY CLINICAL RECORDS. [facility]. provides no warranty or guarantee of the accuracy or completeness of information in this document.
== END 2023-11-05 12:57 | disposition home or self-care (01) ==
LOC: US 12:56
PROVIDERS: PCP Internal Medicine; Visit Provider Obstetrics & Gynecology
DX: R10.2 Pelvic and perineal pain (principal)
CPT/HCPCS: 76830; 76856

== ENCOUNTER 2023-11-05 12:57 | Outpatient (OUT) | payer OTHER, SELFPAY ==
--- NOTE | 2023-11-05 | XR_ITS ---
The [address] [address] Patient Name: LULÚ CAICEDO MRN: [id number] date: 1995 Sex: F Assigned Patient Location: [place] Current Patient Location: Accession/Order Number: [id number] Exam Date: 11/05/2023 13:30 Report Date: 11/06/2023 02:52 At the request of: BUCKY MARSHALL Procedure: XR abdomen 1V EXAM: XR abdomen 1V HISTORY: Flank pain R10.9 COMPARISON: Abdomen radiograph dated 02/26/2023. TECHNIQUE: One view of the abdomen was obtained. FINDINGS: An IUD is seen within the pelvis. There is a prominent amount of stool in the colon without evidence of bowel obstruction. No intraperitoneal free air is seen. The imaged lung bases are clear. XR/XR abdomen 1V IMPRESSION: 1. Prominent amount of stool in the colon without evidence of bowel obstruction. Electronically authenticated by: Jeffrey GONZALEZ Date: 11/06/2023 02:52
--- NOTE | 2023-11-05 | US_ITS ---
The [address] [address] Patient Name: LULÚ CAICEDO MRN: [id number] date: 1995 Sex: F Assigned Patient Location: [place] Current Patient Location: [place] Accession/Order Number: [id number] Exam Date: 11/05/2023 12:59 Report Date: 11/06/2023 02:54 At the request of: BUCKY MARSHALL Procedure: US renal BI EXAM: US renal BI HISTORY: Flank pain R10.9 COMPARISON: None. TECHNIQUE: Ultrasound examination of the kidneys and urinary bladder was performed using Color Doppler. FINDINGS: The right kidney is normal in cortical echogenicity and corticomedullary differentiation without cortical thinning. The right kidney is normal in size measuring 10.1 cm in length. There is no focal renal mass or calcification. There is no hydronephrosis. The left kidney is normal in cortical echogenicity and corticomedullary differentiation without cortical thinning. The left kidney is normal in size measuring 10.2 cm in length. There is no focal renal mass or calcification. There is no hydronephrosis. The urinary bladder appears within normal limits. There is hepatic steatosis. US/US renal BI IMPRESSION: 1. The kidneys and bladder appear within normal limits. 2. Hepatic steatosis. Electronically authenticated by: Jeffrey GONZALEZ Date: 11/06/2023 02:54
--- OUTSIDE RECORDS SUMMARY | 2023-11-05 13:01 | XMS_ITS | CCD ---
Author Organization [facility] Informat ion Partnership [facility] Care Team Providers Care Harpsichord Maker Name Role Phone Lisseth Johnson Primary Care Provider [phone] TOÑO BLANC Admitting Unavailable TOÑO BLANC Attending Unavailable LISSETH JOHNSON Primary Care Unavailable TOÑO BLANC Referring Unavailable LISSETH JOHNSON Primary Care Unavailable Lisseth Johnson Primary Care Provider BRIANA RUBIO Referring Unavailable LISSETH JOHNSON Primary Care Unavailable MATTHEW LEMUS Primary Care Physician Matthew Lemus Primary Care Provider [phone] Unavailable Primary Care Physician Unavailab le Lisa Primary Care Physician Unavailab le Unavailable Primary Care Physician Unavailab Bridgette Bennett Primary Care Physician Julianava Bridgette Gardner Unavailable Unavailable Tae Natarajan Unavailable Bridgette Lewis Primary Care Physician Unava ilBridgette Trimble Primary Care Physician Unava ilKaleigh Stewart Primary Care Physician DO Matthew Arango Primary Care Provider MD Tae Natarajan Attending Provider [phone] Kaleigh Guevara Primary Care Physician Bridgette Medina Primary Care Physician Unava ilMaricel Canela Primary Care Physician Unavailab le Maricel Stafford Primary Care Physician Unavailab le Bridgette Lewis Primary Care Physician Unava ilBridgette Trimble Primary Care Physician Unava ilBridgette Trimble Primary Care Physician Unava ilBridgette Trimble MD Primary Care Provider DR MATTHEW LEMUS [...] Unavailable GRECHNY ., WM CORREA Consulting UnavailISIDRO Manrqiue Consulting Unavailable GOVIND JOHNSTON Consulting Unavailable Agustin Ramos Primary Care Provider DO Matthew Lemus Primary Care Provider MD Matthew Leslie Emergency Provider MD Asad Karri Admit Provider MD Karri Kamara Attending Provider [phone] Sarah Anderson Unavailable CASEY DAVIDSON Referring Unavailable BRIDGETTE LEWIS Primary Care Unavailable BRIDGETTE LEWIS Primary Care Unavailable DEREJE VALERIO Admitting Unavailable DEREJE VALERIO Attending Unavailable VINOD CLARK Attending Unavailable BRIDGETTE LEWIS Primary Care Unavailable Fany Ceballos Unavailable DO Matthew Lemus Primary Care Provider Asaad, MD Imad Attending Provider JORGE LAMAS [...] Unavailable MARSHALL, Rishi R Attending Unavailable DEBBIE, KINTA Primary Care Unavailable Allergies Allergy Classification Reported Allergen(s) Allergy Type Date of Onset Reaction(s) Facility Bee/Wasp/Ant Venom (1 source) Bee/Wasp/Ant venom; Translations: [Bee Stings] Substance Allergy [facility] Repository Macrolides (antibiotic) (2 sources) Azithromycin; Translations: [azithromycin] Drug Allergy [facility] Repository Pollen (1 source) Bee pollen; Translations: [bee pollen] Substance Allergy [facility] Repository (14 sources) bee venom Propensity to adverse reactions to drug 5 [place], [place] (16 sources) Erythromycin; Translations: [ERYTHROMYCIN] Drug Allergy 5 Itching, Dermatitis, Rash, Other (See Comments), pain [place], [place] (20 sources) Azithromycin; Translations: [azithromycin] Drug Allergy 9 Unknown (qualifier value), Swelling, Dermatitis, Rash, pain [facility] (4 sources) Bee pollen; Translations: [bee pollen] Drug Allergy Edema (finding) [facility] (4 sources) Bee/Wasp/Ant venom Drug allergy Unknown (qualifier value) [facility] (14 sources) lamoTRIgine; Translations: [Lamictal] Drug Allergy [facility] (12 sources) lamoTRIgine; Translations: [LAMOTRIGINE] Drug Allergy 2 Swelling, Rash [facility] (1 source) Azithromycin Drug Allergy [facility] Repository (2 sources) bee venom Drug allergy (disorder) [facility] Repository (1 source) lamoTRIgine Drug Allergy [facility] Repository (7 sources) lurasidone; Translations: [LURASIDONE] Drug Allergy 3 Other (See Comments) [facility] (2 sources) BEE VENOM PROTEIN (HONEY BEE); Translations: [BEE VENOM PROTEIN (HONEY BEE)] Propensity to adverse reactions to drug (disorder) 5 [facility] Repository (1 source) Azithromycin Drug Allergy 3 [facility] Repository (1 source) lamoTRIgine Drug Allergy 3 [facility] Repository (1 source) lurasidone Drug Allergy 3 [facility] Repository Medications Current Medications Medication Drug Class(es) [...] q24hr, # 21 tab(s), Refills(s) 0, Pharmacy: [facility]/pharmacy #[id number], 165, cm, 05/10/23 11:13:00 EST, Height/Length [...] 2023 11:00pm May 18, 2023 1:58pm levonorgestrel 0.068449 mg/hr intrauterine system (1 source) Progestin, Progestin-containing [...] Status: Ordered take [address] [facility] once daily in the morning phentermine [...] Daily, # 30 cap(s), Refills(s) 0, Pharmacy: [facility]/pharmacy #[id number], 165, cm, 12/17/21 8:42:00 EDT, Height/Length [...] 1 capsule by mouth every four hours Nbmdggymul-Vlaordfvcybds-Npdw (Fioricet) 50-300-40 mg Capsule Discontinued 1 CAP [...] 02, 2023 8:36pm take 1 tablet by mraion th once daily as needed for sleep [...] procedure, # 2 tab(s), Refills(s) 0, Pharmacy: [facility]/pharmacy #[id number], 165, cm, 12/17/21 8:42:00 EDT, Height/Length [...] procedure., # 2 cap(s), Refills(s) 0, Pharmacy: [id number], 165, cm, 09/04/21 9:50:00 [...] symptomatic., # 2 tab(s), Refills(s) 0, Pharmacy: [facility]/pharmacy #[id number], 165, cm, 12/17/21 8:42:00 EDT, Height/Length [...] Start: 11-10-2016 take 2 tablets by mo cth once daily traZODone (DESYREL) 50 MG tablet [...] 60 mg capsule Indications: Bipolar 1 disorder (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 Performed By: #### U HCG #### [place] [id number] [facility] 05-19-2023 L Specimen: [id number] Received: 05/20/23 Status: RUDY Dover Num: [id number] Spec Type: Surgical Subm Dr: Fany Ceballos MD Tissues: A Duodenum - Biopsy (DUODENAL BX) B Esophagus Biopsy (ESOPHAGUS BX) Procedures: KATELYNN/Demetria, Mary Anne/Micro L4/2 Age/ Patient Sex Location Account Attending Physician Lulú Gaitan 28/F [id number] Fany Ceballos MD SPEC NUM: [id number] RECD: 05/20/23 STATUS: RUDY DOVER NUM: [id number] PHILIP: 05/19/23- SUBM DR: Fany Ceballos MD ENTERED: 05/20/[address] [facility] [address]: SPEC TYPE: Surgical DEPT: S ORDERED: [...] submitted in one cassette labeled B1. Specimen: [id number] Received: 05/20/23 Status: RUDY Danyelle Num: [id number] Spec Type: Surgical Subm Dr: Fany Ceballos MD Tissues: A Duodenum - Biopsy (DUODENAL BX) B Esophagus Biopsy (ESOPHAGUS BX) Procedures: HE/4, Gross/Micro L4/2 Patient: Lulú Gaitan [id number] (Continued) Specimen: [id number] Received: 05/20/23 (Continued) Signed (signature on file) Cielo Trimble MD 05/24/232300 Specimen: [id number] Received: 05/20/23 Status: RUDY [place] Num: [id number] Spec Type: Surgical Subm Dr: Fany Ceballos MD Tissues: A Duodenum - Biopsy (DUODENAL BX) B Esophagus Biopsy (ESOPHAGUS BX) Procedures: KATELYNN/Demetria, Gross/Jaren L4/2 Patient: Lulú Gaitan [id number] (Continued) Specimen: [id number] Received: 05/20/23 (Continued) Microscopic Description A. Two H E slides reviewed. The microscopic examination confirms the diagnosis. B. Two H E slides reviewed. The microscopic examination confirms the diagnosis. CPT Codes 31405d5 Specimen: [id number] Received: 05/20/23 Status: RUDY Dover Num: [id number] Spec Type: Surgical Subm Dr: Fany Ceballos MD Tissues: A Duodenum - Biopsy (DUODENAL BX) B Esophagus Biopsy (ESOPHAGUS BX) Procedures: HE/4, Gross/Micro L4/2 Patient: Lulú Gaitan [id number] (Continued) Signed (signature on file) Cielo Trimble MD 05/24/[address] [facility] [address] abdomen pelvis w [facility] CT abdomen pelvis w [facility] [place] [address] CT Scan Report Signed Patient: Lulú Gaitan MR#: [id number] 4 : 1995 Acct:[id number] Age/Sex: 28 / F ADM Date: 05/12/23 Loc: CT Room: Type: [facility] Attending Dr: Fany Ceballos MD Copies [...] Pham Jr., D.O.05/12/2023 10:29 AM Dictation Location: [place] [address] Transcribed By: [facility] 05/12/23 1029 Dictated By: Samy Pham Jr, DO 05/12/23 1023 Signed By: 05/12/23 1029 [facility] Consent for Procedure/Surger [facility] 05-11-2023 Consent for Procedure/Surgery [id number] 6#1.00TIFF [facility] Ambulatory Visit Summaryon 1 07-11-2022 Ambulatory Visit [...] DEVLIN, Rishi Ghosh [facility] Patient Educationon 05-10-20 Patient Education Urology [...] these instructions at home: Medicines ? Take kdbf-dbw-cmmfalu and prescription medicines only as told by [...] the blood stops without treatment. ? Take xypc-fez-vyuubca and prescription medicines only as told by your health care provider. ? Drink enough fluid to keep your urine pale yellow. This information is not intended to replace advice given to you by your health care provider. Make sure you discuss any questions you have with your health care provider. Document Revised: 01/14/2021 Document Reviewed: 01/14/2021 [employer] Patient Education ? 2022 [employer] [facility] Urology Office/Clinic Noteon 05-10-2023 Urology Office/Clinic Note [...] Bactrim x 3 days empirically. went to [place] ER next day bc blood persisted. CT [...] [facility] [address], [place] [address]- Additional Instructions: w/PVR Patient Education Hematuria, Adult I, Johana De Jesus , personally scribed for Dr. Marshall on 05/10/2023 11:52:58. . Portions of this record may have been created with voice recognition artificial intelligence software, specifically [employer] and or [employer]. Substitutions may have occurred due to the [...] Daily busPIRon (more content not included)... Normal [facility] Comment on above: Result Comment: Elec tronically Signed By: Rishi MARSHALL MD\.br\Date and Time Signed: 05/10/23 11:55 EST\.br\Electronically Co-Signed By: Johana De Jesus.br\Date and Time Co-Signed: 05/10/23 11:53 EST RAD - MISCon 04-26-2023 RAD - MISC [id number]# 1.00TIFF [facility] Lab Reportson 04-15-2023 Lab Reports [id number]# 1.00TIFF [facility] Operative Reporton Operative Report [id number] #1.00TIFF [facility] Lab Reportson 04-08-2023 Lab Reports [id number] #1.00TIFF [facility] Insurance Correspondenceon 1 05-30-2022 Insurance Correspondence [id number] 4#1.00TIFF [facility] Consent for Procedure/Surger yon 03-24-2023 Consent for Procedure/Surgery [id number]#1.00TIFF [facility] CT ABDOMEN PELVIS W IV [...] Jennie Hernández MD 03/11/23 Final result Normal [facility] Cult,Urineon 03-11-2023 Cult,Urine Specimen Description .CLEAN CATCH URINE Culture NO SIGNIFICANT GROWTH Report Status FINAL 03/11/2023 Normal [facility] Comment on above: Performed By: #### U RC #### [facility] [address] [place] [address] Pantograph Operator: Omar Segundo MD [facility] [address] [place] [address] [place] [address] Pantograph Operator: Cholo Alicea MD CBC with Diffon 03-10-2023 Abs. Basophil 0.05 k/uL Normal 0.00-0.20 [facility] Comment on above: Performed By: #### C DP, CP, CK #### [address] [place] [address] Pantograph Operator: Cholo Alicea MD Abs.Imm.Granulocyte <0.03 Normal 0.00-0.30 [facility] Comment on above: Performed By: #### C DP, CP, CK #### [address] [place] [address] Pantograph Operator: Cholo Alicea MD Abs.Neutrophil (Seg) 3.36 k/uL Normal 1.50-8.10 [facility] Comment on above: Performed By: #### C ANTONIA LIU, CK #### [address] [place], [facility] Pantograph Operator: Cholo Alicea MD Basophils/100 WBC (Bld) 1 % Normal 0-2 [facility] Comment on above: Performed By: #### C ALEXA CP, CK #### [address] [place], [place] [address] Pantograph Operator: Cholo Alicea MD Eosinophils (Bld) [#/Vol] 0.05 10*3/uL Normal 0.00-0.44 [facility] Comment on above: Performed By: #### C ANTONIA LIU, CK #### [address] [place], [place] [address] Pantograph Operator: Cholo Alicea MD Eosinophils/100 WBC (Bld) 1 % Normal 1-4 [facility] Comment on above: Performed By: #### C ANTONIA LIU, CK #### [address] [place], [facility] Pantograph Operator: Cholo Alicea MD Erythrocyte distribution width (RBC) [Ratio] 11.9 % Normal 11.8-14.4 [facility] Comment on above: Performed By: #### C ALEXA CP, CK #### [address] [place], [facility] Pantograph Operator: Cholo Alicea MD Hematocrit (Bld) [Volume fraction] 37.5 % Normal 36.3-47.1 [facility] Comment on above: Performed By: #### C ALEXA CP, CK #### [address] [place], [facility] Pantograph Operator: Cholo Alicea MD Hemoglobin (Bld) [Mass/Vol] 12.9 g/dL Normal 11.9-15.1 [facility] Comment on above: Performed By: #### C ANTONIA LIU, CK #### [address] [place] [address] Pantograph Operator: Cholo Alicea MD Immature granulocytes/100 WBC (Bld) 0 % Normal 0 [facility] Comment on above: Performed By: #### C ALEXA CP, CK #### [address] [place], [facility] Pantograph Operator: Cholo Alicea MD Lymphocytes (Bld) [#/Vol] 2.79 10*3/uL Normal 1.10-3.70 [facility] Comment on above: Performed By: #### C ANTONIA LIU, CK #### [address] [place], [place] [address] Pantograph Operator: Cholo Alicea MD Lymphocytes/100 WBC (Bld) 42 % Normal 24-43 [facility] Comment on above: Performed By: #### C ANTONIA LIU, CK #### [address] [place], [facility] Pantograph Operator: Cholo Alicea MD MCH (RBC) [Entitic mass] 30.4 pg Normal 25.2-33.5 [facility] Comment on above: Performed By: #### C ANTONIA LIU, CK #### [address] [place], [facility] Pantograph Operator: Cholo Alicea MD MCHC (RBC) [Mass/Vol] 34.4 g/dL Normal 28.4-34.8 [facility] Comment on above: Performed By: #### C ANTONIA LIU, CK #### [address] [place], [place] [id number] Pantograph Operator: Cholo Alicea MD MCV (RBC) [Entitic vol] 88.2 fL Normal 82.6-102.9 [facility] Comment on above: Performed By: #### C DP, CP, CK #### [facility] [address] [place], [place] [address] Pantograph Operator: Cholo Alicea MD Monocytes (Bld) [#/Vol] 0.46 10*3/uL Normal 0.10-1.20 [facility] Comment on above: Performed By: #### C DP, CP, CK #### [facility] [address] [place], [facility] Pantograph Operator: Cholo Alicea MD Monocytes/100 WBC (Bld) 7 % Normal 3-12 [facility] Comment on above: Performed By: #### C DP CP, CK #### [address] [place], [place] [address] Pantograph Operator: Cholo Alicea MD Neutrophil (Seg) 49 % Normal 36-65 [facility] Comment on above: Performed By: #### C ALEXA CP, CK #### [address] [place], [place] [address] Pantograph Operator: Cholo Alicea MD NRBC Automated 0.0 per 100 WBC Normal 0.0 [facility] Comment on above: Performed By: #### C DP CP, CK #### [address] [place], [place] [address] Pantograph Operator: Cholo Alicea MD Platelet mean volume (Bld) [Entitic vol] 10.5 fL Normal 8.1-13.5 [facility] Comment on above: Performed By: #### C DP, CP, CK #### [address] [place], [facility] Pantograph Operator: Cholo Alicea MD Platelets (Bld) [#/Vol] 320 10*3/uL Normal 138-453 [facility] Comment on above: Performed By: #### C DP, CP, CK #### [facility] [address] [place] [address] Pantograph Operator: Cholo Alicea MD RBC (Bld) [#/Vol] 4.25 10*6/uL Normal 3.95-5.11 [facility] Comment on above: Performed By: #### C DP, CP, CK #### [facility] [address] [place] [address] Pantograph Operator: Cholo Alicea MD WBC (Bld) [#/Vol] 6.7 10*3/uL Normal 3.5-11.3 [facility] Comment on above: Performed By: #### C DP, CP, CK #### [address] [place], [facility] Pantograph Operator: Cholo Alicea MD Comp Metabolic Profon 2022 Albumin [Mass/Vol] 4.6 g/dL Normal 3.5-5.2 [facility] Comment on above: Performed By: #### C DP, CP, CK #### [address] [place], [place] [address] Pantograph Operator: Cholo Alicea MD Albumin/Glob Ratio 1.5 Normal 1.0-2.5 [facility] Comment on above: Performed By: #### C DP, CP, CK #### [address] [place], [facility] Pantograph Operator: Cholo Alicea MD Alkaline Phos 72 U/L Normal 35-104 [facility] Comment on above: Performed By: #### C DP, CP, CK #### [address] [place], [place] [id number] Pantograph Operator: Cholo Alicea MD ALT [Catalytic activity/Vol] 42 U/L High 5-33 [facility] Comment on above: Performed By: #### C DP, CP, CK #### [facility] [address] [place], [place] [address] Pantograph Operator: Cholo Alicea MD Anion gap [Moles/Vol] 11 mmol/L Normal 9-17 [facility] Comment on above: Performed By: #### C DP, CP, CK #### [facility] [address] [place], [place] [address] Pantograph Operator: Cholo Alicea MD AST [Catalytic activity/Vol] 31 U/L Normal <32 [facility] Comment on above: Performed By: #### C DP, CP, CK #### [facility] [address] [place], [place] [id number] Pantograph Operator: Cholo Alicea MD Bilirubin [Mass/Vol] 0.4 mg/dL Normal 0.3-1.2 [facility] Comment on above: Performed By: #### C DP, CP, CK #### [facility] [address] [place], [place] [address] Pantograph Operator: Cholo Alicea MD BUN/CRE Ratio 10 Normal 9-20 [facility] Comment on above: Performed By: #### C DP, CP, CK #### [facility] [address] [place], [place] [address]83 Pantograph Operator: Cholo Alicea MD Calcium [Mass/Vol] 10.4 mg/dL Normal 8.6-10.4 [facility] Comment on above: Performed By: #### C DP, CP, CK #### [facility] [address] [place], [place] [address] Pantograph Operator: Cholo Alicea MD Chloride [Moles/Vol] 101 mmol/L Normal 98-107 [facility] Comment on above: Performed By: #### C DP, CP, CK #### [facility] [address] [place], [place] [address] Pantograph Operator: Cholo Alicea MD CO2 [Moles/Vol] 26 mmol/L Normal 20-31 [facility] Comment on above: Performed By: #### C DP, CP, CK #### [facility] [address] [place] [address] Pantograph Operator: Cholo Alicea MD Creatinine [Mass/Vol] 0.9 mg/dL Normal 0.5-0.9 [facility] Comment on above: Performed By: #### C DP, CP, CK #### [facility] [address] [place] [address] Pantograph Operator: Cholo Alicea MD GFR/1.73 sq M.predicted among non-blacks MDRD (S/P/Bld) [Vol rate/Area] mL/min/{1.73_m2} Normal >60 [facility] Comment on above: Result Comment: These results [...] By: #### C DP, CP, CK #### [facility] [address] [place] [address] Pantograph Operator: Cholo Alicea MD Glucose [Mass/Vol] 97 mg/dL Normal 70-99 [facility] Comment on above: Performed By: #### C DP, CP, CK #### [facility] [address] [place] [address] Pantograph Operator: Cholo Alicea MD Potassium [Moles/Vol] 4.2 mmol/L Normal 3.7-5.3 [facility] Comment on above: Performed By: #### C DP, CP, CK #### [facility] [address] [place] [address] Pantograph Operator: Cholo Alicea MD Protein [Mass/Vol] 7.6 g/dL Normal 6.4-8.3 [facility] Comment on above: Performed By: #### C DP, CP, CK #### [facility] [address] [place] [address] Pantograph Operator: Cholo Alicea MD Sodium [Moles/Vol] 138 mmol/L Normal 135-144 [facility] Comment on above: Performed By: #### C DP, CP, CK #### [facility] [address] [place] [address] Pantograph Operator: Cholo Alicea MD Urea nitrogen [Mass/Vol] 9 mg/dL Normal 6-20 [facility] Comment on above: Performed By: #### C DP, CP, CK #### [facility] [address] [place] [address] Pantograph Operator: Cholo Alicea MD Creatine Kinaseon 03-10-2023 CK [Catalytic activity/Vol] 51 U/L Normal 26-192 [facility] Comment on above: Performed By: #### C ALEXA CP, CK #### [facility] [address] [place] [address] Pantograph Operator: Cholo Alicea MD HCG, ,Urineon 03-10 Beta HCG ( test) Ql (U) Negative Normal NEG [facility] Comment on above: Result Comment: Spec imens with hCG levels near the threshold of the test (25 mIU/mL) may give a negative or indeterminate result. In such cases, another test should be performed with a new specimen in 48-72 hours. If early is suspected clinically in this setting, correlation with quantitative serum b-hCG level is suggested. [facility] has confirmed the use of plasma for this test. This has not been cleared or approved by the U.S. Food and Drug Administration. The FDA has determined that such clearance is not necessary. Performed By: #### U HCG, UAMIC #### [facility] [address] [place] [address] Pantograph Operator: Cholo Alicea MD Urinalysis w/ Microon 2022 Bacteria TRACE Abnormal NONE [facility] Comment on above: Performed By: #### L IP, CDP, CP #### [facility] [address] [place], [place] [id number] Pantograph Operator: Cholo Alicea MD Bilirubin, SemiQt,Ur Negative Normal NEG [facility] Comment on above: Performed By: #### L IP, CDP, CP #### [facility] [address] [place] [address] Dr[place], [place] [id number] Pantograph Operator: Cholo Alicea MD Blood, Urine Negative Normal NEG [facility] Comment on above: Performed By: #### L IP, CDP, CP #### [address] [place], [place] [id number] Pantograph Operator: Cholo Alicea MD Clarity (U) Clear Normal CLEAR [facility] Comment on above: Performed By: #### L IP, CDP, CP #### [address] [place], [place] [id number] Pantograph Operator: Cholo Alicea MD Color (U) Yellow Normal YEL [facility] Comment on above: Performed By: #### L IP, CDP, CP #### [address] [place], [place] [id number] Pantograph Operator: Cholo Alicea MD Epithelial cells LM Ql (Urine sed) 0 TO 2 Normal 0-25 [facility] Comment on above: Performed By: #### L IP, CDP, CP #### [facility] [address] [place] [address] [address] [place], [place] [id number] Pantograph Operator: Cholo Alicea MD Glucose Ql (U) Negative Normal NEG [facility] Comment on above: Performed By: #### L IP, CDP, CP #### [facility] [address] [place] [address] [place] [address] Pantograph Operator: Cholo Alicea MD Ketones Ql (U) Negative Normal NEG [facility] Comment on above: Performed By: #### L IP, CDP, CP #### [facility] [address] [place] [address] [place] [address] Pantograph Operator: Cholo Alicea MD Leukocyte esterase Test strip Ql (U) Negative Normal NEG [facility] Comment on above: Performed By: #### L IP, CDP, CP #### [facility] [address] [place] [address] [place] [address] Pantograph Operator: Cohlo Alicea MD Nitrite,Ur Negative Normal NEG [facility] Comment on above: Performed By: #### L IP, CDP, CP #### [address] [place] [address] Pantograph Operator: Cholo Alicea MD PH,Ur 7.5 Normal 5.0-9.0 [facility] Comment on above: Performed By: #### L IP, CDP, CP #### [address] [place], [place] [id number] Pantograph Operator: Cholo Alicea MD Protein Ql (U) Negative Normal NEG [facility] Comment on above: Performed By: #### L IP, CDP, CP #### [facility] [address] [place] [address] [place] [address] Pantograph Operator: Cholo Alicea MD Spec. [place],Ur 1.010 Normal 1.010-1.020 [facility] Comment on above: Performed By: #### L IP, CDP, CP #### [address] [place] [address] Pantograph Operator: Cholo Alicea MD Urine RBC's None Normal 0-2 [facility] Comment on above: Performed By: #### L IP, CDP, CP #### [facility] [address] [place] [address] [place] [address] Pantograph Operator: Cholo Alicea MD Urine WBC's 0 TO 2 Normal 0-5 [facility] Comment on above: Performed By: #### L IP, CDP, CP #### [facility] [address] [place] [address] Pantograph Operator: Cholo Alicea MD Urobilinogen,Ur Normal Normal 0.0-1.0 [facility] Comment on above: Performed By: #### L IP, CDP, CP #### [facility] [address] [place] [address] Pantograph Operator: Cholo Alicea MD COVID + FLU Quick Testingon 02-11-2023 SARS-CoV-2 (COVID-19) RNA ALEKSANDER+probe Ql (Unsp spec) Negative [employer] Other COVID + FLU Quick Testing Negative [employer] Other Quick Strepon 02-11-2023 S. pyogenes Org specific cx Ql (Throat) Negative [email or web address] Other Quick Strep [employer] Other CNPNon 02-03-2023 CNPN Telephone (GASTSP) LULÚ GAITAN ([id number]) 1995 F Date Time Provider Department 02/03/23 CHRISTINE MACIAS [facility] During your visit today, we recorded [...] name of hospital or facility)? [facility] If the patient had a gastric emptying [...] G/J Tube?No Preferred phone number for contact: [phone] ? Viviana David 02/03/2023 3:38 PM Signed [...] Status:Closed by VIVIANA DAVID on 02/04/23 Normal [facility] ECG 12 lead ECGon 02-03-2023 ECG 12 lead ECG [facility] [place] [address] Electrocardiograph Report Signed Patient: Lulú Gaitan MR#: [id number] 4 : 1995 Acct:[id number] Age/Sex: 27 / F ADM Date: 02/02/23 Loc: Room: [address] [place] [address] Type: ADM IN Attending Dr: Karri Kamara [...] Charles Mauro MD 0 02/04/23 1319 Normal [facility] Alanine aminotransferase [En zymatic activity/volume] in Serum or PlasmaOrdered By: Matthew Leslie on 02-02-2023 ALT [Catalytic activity/Vol] 38 U/L 7-52 [facility] Albumin [Mass/volume] in Ser um or Plasma by Bromocresol green (BCG) dye binding methoOrdered By: Matthew Leslie on 02-02-2023 Albumin BCG dye [Mass/Vol] 4.6 g/dL 3.5-5.7 [facility] Alkaline phosphatase [Enzyma tic activity/volume] in Serum or PlasmaOrdered By: Matthew Leslie on 02-02-2023 ALP [Catalytic activity/Vol] 54 U/L 34-104 [facility] Amphetamine Screen Ql (U)Ord ered By: Matthew Leslie on 02-02-2023 Amphetamines Ql (U) Negative Negative [facility] Aspartate aminotransferase [ Enzymatic activity/volume] in Serum or PlasmaOrdered By: Matthew Leslie on 02-02-2023 AST [Catalytic activity/Vol] 32 U/L 13-39 [facility] Automated erythrocytes count in urine sediment (number/area)Ordered By: Matthew Leslie on 02-02-2023 RBC Auto (Urine sed) [#/Area] 10-19 [HPF] 0-4 [facility] Automated leukocytes count i n urine sediment (number/area)Ordered By: Matthew Leslie on 02-02-2023 WBC Auto (Urine sed) [#/Area] 10-19 [HPF] 0-4 [facility] Automated urine hyaline cast s count (number/volume)Ordered By: Matthew Leslie on 02-02-2023 Hyaline casts Auto (U) [#/Vol] 0-1 [LPF] 0-1 [facility] Barbiturates [Presence] in U rine by Screen methodOrdered By: Matthew Leslie on 02-02-2023 Barbiturates Screen Ql (U) Negative Negative [facility] Basophils Auto (Bld) [#/Vol] Ordered By: Matthew Leslie on 02-02-2023 Basophils (Bld) [#/Vol] 0.1 10*3/uL 0.0-0.2 [facility] Basophils/100 WBC Auto (Bld) Ordered By: Matthew Leslie on 02-02-2023 Basophils/100 WBC (Bld) 0.9 % . F [facility] Benzodiazepines Screen Ql (U )Ordered By: Matthew Leslie on 02-02-2023 Benzodiazepines Ql (U) Negative Negative [facility] Benzoylecgonine [Presence] i n Urine by Screen methodOrdered By: Matthew Leslie on 02-02-2023 Benzoylecgonine Screen Ql (U) Negative Negative [facility] Bilirubin Test strip Ql (U)O rdered By: Matthew Leslie on 02-02-2023 Bilirubin Ql (U) Negative Negative [facility] Bilirubin.direct [Mass/volum e] in Serum or PlasmaOrdered By: Matthew Leslie on 02-02-2023 Bilirubin.direct [Mass/Vol] 0.10 mg/dL 0.03-0.18 [facility] Bilirubin.total [Mass/volume ] in Serum or PlasmaOrdered By: Matthew Leslie on 02-02-2023 Bilirubin [Mass/Vol] 0.6 mg/dL 0.3-1.0 [facility] Calcium [Mass/volume] in Ser um or PlasmaOrdered By: Matthew Leslie on 02-02-2023 Calcium [Mass/Vol] 9.5 mg/dL 8.6-10.3 [facility] Cannabinoids [Presence] in U rine by Screen methodOrdered By: Matthew Leslie on 02-02-2023 Cannabinoids Screen Ql (U) Negative Negative [facility] Comment on above: These are unconfirme d results and should not be used for legal purposes. Drug Cut-Off Concentration: AMPH 1000 ng/mL PONCHO 200 ng/mL KRISTAN 200 ng/mL COCM 300 ng/mL OP 300 ng/mL PCP 25 ng/mL THC 20 ng/mL Carbon dioxide, total [Moles /volume] in Serum or PlasmaOrdered By: Matthew Leslie on 02-02-2023 CO2 [Moles/Vol] 28.3 mmol/L 21.0-31.0 [facility] Casts typing in urine sedime nt by light microscopyOrdered By: Matthew Leslie on 02-02-2023 Casts LM Nom (Urine sed) None seen [LPF] None Seen [facility] Chloride [Moles/volume] in S barbra or PlasmaOrdered By: Matthew Leslie on 02-02-2023 Chloride [Moles/Vol] 107 mmol/L 98-107 [facility] Color Auto (U)Ordered By: Mariela Leslie on 02-02-2023 Color (U) Yellow Yellow [facility] Complete Blood Count Auto Di ffon 02-02-2023 Basophils (Bld) [#/Vol] 0.1 10*3/uL Normal 0.0-0.2 [facility] Comment on above: Result Comment: PERF ORMED BY: [place] [address] PATHOLOGIST CODING MANAGER MOISES VELASCO M.D. Performed By: #### E TANYA, HEPATIC, TSH3 wRFLX, CBC, CMP, [id number] #### [address] Basophils/100 WBC (Bld) 0.9 % Normal . F [facility] Comment on above: Performed By: #### E TANYA, HEPATIC, TSH3 wRFLX, CBC, CMP, [id number] #### [address] Eosinophils (Bld) [#/Vol] 0.0 10*3/uL Normal 0.0-0.45 [facility] Comment on above: Performed By: #### E TANYA, HEPATIC, TSH3 wRFLX, CBC, CMP, [id number] #### [address] Eosinophils/100 WBC (Bld) 0.4 % Normal . [facility] Comment on above: Performed By: #### E TANYA, HEPATIC, TSH3 wRFLX, CBC, CMP, [id number] #### [address] Erythrocyte distribution width (RBC) [Ratio] 12.9 % Normal 11.9-15.3 [facility] Comment on above: Performed By: #### E TANYA, HEPATIC, TSH3 wRFLX, CBC, CMP, [id number] #### [address] Hematocrit (Bld) [Volume fraction] 41.1 % Normal 34.0-46.4 [facility] Comment on above: Performed By: #### E TANYA, HEPATIC, TSH3 wRFLX, CBC, CMP, [id number] #### [address] Hemoglobin (Bld) [Mass/Vol] 13.8 g/dL Normal 11.8-15.4 [facility] Comment on above: Performed By: #### E TANYA, HEPATIC, TSH3 wRFLX, CBC, CMP, [id number] #### [address] Lymphocytes (Bld) [#/Vol] 2.7 10*3/uL Normal 1.00-4.8 [facility] Comment on above: Performed By: #### E TANYA, HEPATIC, TSH3 wRFLX, CBC, CMP, [id number] #### [address] Lymphocytes/100 WBC (Bld) 36.0 % Normal . [facility] Comment on above: Performed By: #### E TANYA, HEPATIC, TSH3 wRFLX, CBC, CMP, [id number] #### [address] MCH (RBC) [Entitic mass] 29.4 pg Normal 24.7-34.3 [facility] Comment on above: Performed By: #### E TANYA, HEPATIC, TSH3 wRFLX, CBC, CMP, [id number] #### [address] MCV (RBC) [Entitic vol] 87.6 fL Normal 80-[address] [facility] Comment on above: Performed By: #### E TANYA, HEPATIC, TSH3 wRFLX, CBC, CMP, [id number] #### [address] Mean Corpuscular HGB Conc 33.6 g/dL Normal 32.0-35.0 [facility] Comment on above: Performed By: #### E TANYA, HEPATIC, TSH3 wRFLX, CBC, CMP, [id number] #### [address] Monocytes (Bld) [#/Vol] 0.6 10*3/uL Normal 0.0-0.8 [facility] Comment on above: Performed By: #### E TANYA, HEPATIC, TSH3 wRFLX, CBC, CMP, [id number] #### [place] [address] [place] Monocytes/100 WBC (Bld) 17.83 % Normal 0.00-20.[address] [facility] Comment on above: Performed By: #### E TANYA, HEPATIC, TSH3 wRFLX, CBC, CMP, [id number] #### [address] Monocytes/100 WBC (Bld) 7.9 % Normal . F [facility] Comment on above: Performed By: #### E TANYA, HEPATIC, TSH3 wRFLX, CBC, CMP, [id number] #### [facility] [address] [place] [address] [place] Neutrophils (Bld) [#/Vol] 4.2 10*3/uL Normal 1.8-7.7 [facility] Comment on above: Performed By: #### E TANYA, HEPATIC, TSH3 wRFLX, CBC, CMP, [id number] #### [facility] [address] [place] [address] Neutrophils/100 WBC (Bld) 54.8 % Normal . [facility] Comment on above: Performed By: #### E TANYA, HEPATIC, TSH3 wRFLX, CBC, CMP, [id number] #### [address] NRBC% 0.0 /100{WBC} Normal 0-0.5 [facility] Comment on above: Performed By: #### E TANYA, HEPATIC, TSH3 wRFLX, CBC, CMP, [id number] #### [address] Platelet mean volume (Bld) [Entitic vol] 9.2 fL Normal 6.3-10.7 [facility] Comment on above: Performed By: #### E TANYA, HEPATIC, TSH3 wRFLX, CBC, CMP, [id number] #### [facility] [address] [place] [address] [place] Platelets (Bld) [#/Vol] 322 10*3/uL Normal 150-450 [facility] Comment on above: Performed By: #### E TANYA, HEPATIC, TSH3 wRFLX, CBC, CMP, [id number] #### [facility] [address] [place] [address] [place] RBC (Bld) [#/Vol] 4.70 10*6/uL Normal 3.60-5.00 [facility] Comment on above: Performed By: #### E TNAYA, HEPATIC, TSH3 wRFLX, CBC, CMP, [id number] #### [address] [address] [place] WBC (Bld) [#/Vol] 7.6 10*3/uL Normal 3.8-11.6 [facility] Comment on above: Performed By: #### E TANYA, HEPATIC, TSH3 wRFLX, CBC, CMP, [id number] #### [facility] [address] [place] [address] Comprehensive Metabolic Pane akbar 02-02-2023 Albumin [Mass/Vol] 4.6 g/dL Normal 3.5-5.7 [facility] Comment on above: Performed By: #### U HCG, ADDONUAPLUS, URDS, CUU #### [address] Albumin/Globulin [Mass ratio] 1.4 {ratio} Normal [facility] Comment on above: Performed By: #### U HCG, ADDONUAPLUS, URDS, CUU #### [address] ALP [Catalytic activity/Vol] 54 U/L Normal 34-104 [facility] Comment on above: Performed By: #### U HCG, ADDONUAPLUS, URDS, CUU #### [address] ALT [Catalytic activity/Vol] 38 U/L Normal 7-52 [facility] Comment on above: Performed By: #### U HCG, ADDONUAPLUS, URDS, CUU #### [facility] [address] [place] [address] Anion gap [Moles/Vol] 9.5 mmol/L Normal 6.0-15.0 [facility] Comment on above: Performed By: #### U HCG, ADDONUAPLUS, URDS, CUU #### [address] AST [Catalytic activity/Vol] 32 U/L Normal 13-39 [facility] Comment on above: Performed By: #### U HCG, ADDONUAPLUS, URDS, CUU #### [address] [address] [place] Bilirubin [Mass/Vol] 0.6 mg/dL Normal 0.3-1.0 [facility] Comment on above: Performed By: #### U HCG, ADDONUAPLUS, URDS, CUU #### [facility] [address] Calcium [Mass/Vol] 9.5 mg/dL Normal 8.6-10.3 [facility] Comment on above: Performed By: #### U HCG, ADDONUAPLUS, URDS, CUU #### [facility] [address] Chloride [Moles/Vol] 107 mmol/L Normal 98-107 [facility] Comment on above: Performed By: #### U HCG, ADDONUAPLUS, URDS, CUU #### [facility] [address] [place] [address] CO2 [Moles/Vol] 28.3 mmol/L Normal 21.0-31.0 [facility] Comment on above: Performed By: #### U HCG, ADDONUAPLUS, URDS, CUU #### [facility] [address] [place] [address] Creatinine [Mass/Vol] 1.14 mg/dL Normal 0.60-1.20 [facility] Comment on above: Performed By: #### U HCG, ADDONUAPLUS, URDS, CUU #### [facility] [address] [place] [address] Creatinine Clr Calc Pharmacy 76.05 [facility] Comment on above: Result Comment: PERF ORMED BY: [place] [address] PATHOLOGIST CODING MANAGER MOISES VELASCO M.D. Performed By: #### U HCG, ADDONUAPLUS, URDS, CUU #### [facility] [address] [place] [address] [place] GFR/1.73 sq M.predicted MDRD (S/P/Bld) [Vol rate/Area] mL/min/{1.73_m2} [facility] Comment on above: Performed By: #### U HCG, ADDONUAPLUS, URDS, CUU #### [facility] [address] Globulin (S) [Mass/Vol] 3.2 g/dL Normal [facility] Comment on above: Performed By: #### U HCG, ADDONUAPLUS, URDS, CUU #### [facility] [address] [place] [address] Glucose [Mass/Vol] 98 mg/dL Normal 70-100 [facility] Comment on above: Result Comment: [place] Glucose Reference Range is dependent on time and content of last meal. Glucose of more than 200 mg/dL in a nonstressed, ambulatory subject supports the diagnosis of Diabetes Mellitus. ADA recommended reference range Performed By: #### U HCG, ADDONUAPLUS, URDS, CUU #### [address] Potassium [Moles/Vol] 3.8 mmol/L Normal 3.5-5.1 [facility] Comment on above: Performed By: #### U HCG, ADDONUAPLUS, URDS, CUU #### [address] Protein [Mass/Vol] 7.8 g/dL Normal 6.4-8.9 [facility] Comment on above: Performed By: #### U HCG, ADDONUAPLUS, URDS, CUU #### [place] [address] [place] Sodium [Moles/Vol] 141 mmol/L Normal 136-145 [facility] Comment on above: Performed By: #### U HCG, ADDONUAPLUS, URDS, CUU #### [address] Urea nitrogen [Mass/Vol] 11 mg/dL Normal 7-25 [facility] Comment on above: Performed By: #### U HCG, ADDONUAPLUS, URDS, CUU #### [place] [address] [place] Creatinine [Mass/volume] in Serum or PlasmaOrdered By: Matthew Leslie on 02-02-2023 Creatinine [Mass/Vol] 1.14 mg/dL 0.60-1.20 [facility] Dipstick and Microscopicon 0 02-02-2023 Appearance (U) Cloudy Critically abnormal Clear [facility] Comment on above: Order Comment: Name Collection Type:: Clean-Voided Midstream Performed By: #### U HCG, ADDONUAPLUS, URDS, CUU #### [facility] [address] [place] [address] Bacteria,Urine 1+ High None Seen [facility] Comment on above: Order Comment: Name Collection Type:: Clean-Voided Midstream Performed By: #### U HCG, ADDONUAPLUS, URDS, CUU #### [facility] [address] [place] [address] Bilirubin,Urine Negative Normal Negative [facility] Comment on above: Order Comment: Name Collection Type:: Clean-Voided Midstream Performed By: #### U HCG, ADDONUAPLUS, URDS, CUU #### [facility] [address] [place] [address] Color (U) Yellow Normal Yellow [facility] Comment on above: Order Comment: Name Collection Type:: Clean-Voided Midstream Performed By: #### U HCG, ADDONUAPLUS, URDS, CUU #### [facility] [address] [place] [address] Glucose Ql (U) Normal Normal Normal [facility] Comment on above: Order Comment: Name Collection Type:: Clean-Voided Midstream Performed By: #### U HCG, ADDONUAPLUS, URDS, CUU #### [facility] [address] [place] [address] [place] Hyaline Casts,Urine 0-1 Normal 0-1 [facility] Comment on above: Order Comment: Name Collection Type:: Clean-Voided Midstream Performed By: #### U HCG, ADDONUAPLUS, URDS, CUU #### [facility] [address] [place] [address] [place] Ketones Ql (U) 2+ High Negative [facility] Comment on above: Order Comment: Name Collection Type:: Clean-Voided Midstream Performed By: #### U HCG, ADDONUAPLUS, URDS, CUU #### [address] Leukocyte esterase Test strip Ql (U) 2+ High Negative [facility] Comment on above: Order Comment: Name Collection Type:: Clean-Voided Midstream Performed By: #### U HCG, ADDONUAPLUS, URDS, CUU #### [address] Nitrite,Urine Negative Normal Negative [facility] Comment on above: Order Comment: Name Collection Type:: Clean-Voided Midstream Performed By: #### U HCG, ADDONUAPLUS, URDS, CUU #### [address] Occult Blood,Urine 3+ High Negative [facility] Comment on above: Order Comment: Name Collection Type:: Clean-Voided Midstream Performed By: #### U HCG, ADDONUAPLUS, URDS, CUU #### [facility] [address] [place] [address] Other Casts,Urine None Seen Normal None Seen [facility] Comment on above: Order Comment: Name Collection Type:: Clean-Voided Midstream Performed By: #### U HCG, ADDONUAPLUS, URDS, CUU #### [facility] [address] [place] [address] pH (U) 6.0 [pH] Normal 5.0-9.0 [facility] Comment on above: Order Comment: Name Collection Type:: Clean-Voided Midstream Performed By: #### U HCG, ADDONUAPLUS, URDS, CUU #### [address] Protein (U) [Mass/Vol] 30 mg/dL High Negative [facility] Comment on above: Order Comment: Name Collection Type:: Clean-Voided Midstream Performed By: #### U HCG, ADDONUAPLUS, URDS, CUU #### [facility] [address] [place] [address] [place] RBC,Urine 10-19 High 0-4 [facility] Comment on above: Order Comment: Name Collection Type:: Clean-Voided Midstream Performed By: #### U HCG, ADDONUAPLUS, URDS, CUU #### [facility] [address] [place] [address] Specificy [place],Urine 1.027 Normal 1.001-1.030 [facility] Comment on above: Order Comment: Name Collection Type:: Clean-Voided Midstream Performed By: #### U HCG, ADDONUAPLUS, URDS, CUU #### [facility] [address] [place] [address] Squamous Epithelial Cell,Urine 3-4 High 0-2 [facility] Comment on above: Order Comment: Name Collection Type:: Clean-Voided Midstream Performed By: #### U HCG, ADDONUAPLUS, URDS, CUU #### [facility] [address] [place] [address] Urobilinogen,Urine Normal Normal Normal [facility] Comment on above: Order Comment: Name Collection Type:: Clean-Voided Midstream Performed By: #### U HCG, ADDONUAPLUS, URDS, CUU #### [facility] [address] [place] [address] [place] WBC,Urine 10-19 High 0-4 [facility] Comment on above: Order Comment: Name Collection Type:: Clean-Voided Midstream Performed By: #### U HCG, ADDONUAPLUS, URDS, CUU #### [facility] [address] [place] [address] Yeast,Urine None Seen Normal None Seen [facility] Comment on above: Order Comment: Name Collection Type:: Clean-Voided Midstream Performed By: #### U HCG, ADDONUAPLUS, URDS, CUU #### [facility] [address] [place] [address] Drug Screen,Urineon 02-03-20 Amphetamine Screen,Urine Negative Normal Negative [facility] Comment on above: Performed By: #### U HCG, ADDONUAPLUS, URDS, CUU #### [address] Barbiturate Screen,Urine Negative Normal Negative [facility] Comment on above: Performed By: #### U HCG, ADDONUAPLUS, URDS, CUU #### [address] Benzodiazepines Screen,Urine Negative Normal Negative [facility] Comment on above: Performed By: #### U HCG, ADDONUAPLUS, URDS, CUU #### [address] Cannabinoid Screen,Urine Negative Normal Negative [facility] Comment on above: Result Comment: Thes e are unconfirmed results and should not be used for legal purposes. Drug Cut-Off Concentration: AMPH 1000 ng/mL PONCHO 200 ng/mL KRISTAN 200 ng/mL COCM 300 ng/mL OP 300 ng/mL PCP 25 ng/mL THC 20 ng/mL PERFORMED BY: [place] [address] PATHOLOGIST CODING MANAGER MOISES VELASCO M.D. Performed By: #### U HCG, ADDONUAPLUS, URDS, CUU #### [address] Cocaine Screen,Urine Negative Normal Negative [facility] Comment on above: Performed By: #### U HCG, ADDONUAPLUS, URDS, CUU #### [address] Opiate Screen,Urine Negative Normal Negative [facility] Comment on above: Performed By: #### U HCG, ADDONUAPLUS, URDS, CUU #### [address] Phencyclidine Screen,Urine Negative Normal Negative [facility] Comment on above: Performed By: #### U HCG, ADDONUAPLUS, URDS, CUU #### [address] Eosinophils Auto (Bld) [#/Vo l]Ordered By: Matthew Leslie on 02-02-2023 Eosinophils (Bld) [#/Vol] 0.0 10*3/uL 0.0-0.45 [facility] Eosinophils/100 WBC Auto (Bl d)Ordered By: Matthew Leslie on 02-02-2023 Eosinophils/100 WBC (Bld) 0.4 % . [facility] Erythrocyte distribution wid th Auto (RBC) [Ratio]Ordered By: Matthew Leslie on 02-02-2023 Erythrocyte distribution width (RBC) [Ratio] 12.9 % 11.9-15.3 [facility] Ethanol [Mass/volume] in Ser um or PlasmaOrdered By: Matthew Leslie on 02-02-2023 Ethanol [Mass/Vol] mg/dL [facility] Ethanol [Mass/Vol] TNP [facility] Comment on above: Test not performed Ethyl Alcohol Profileon Ethanol [Mass/Vol] mg/dL Normal [facility] Comment on above: Performed By: #### E TANYA, HEPATIC, TSH3 wRFLX, CBC, CMP, [id number] #### [facility] [address] Percent Ethanol Not performed Normal [facility] Comment on above: Result Comment: PERF ORMED BY: [place] [address] PATHOLOGIST CODING MANAGER MOISES VELASCO M.D. Performed By: #### E TANYA, HEPATIC, TSH3 wRFLX, CBC, CMP, [id number] #### [facility] [address] Globulin Calc (S) [Mass/Vol] Ordered By: Matthew Leslie on 02-02-2023 Globulin (S) [Mass/Vol] 3.2 g/dL F [facility] Glucose [Mass/volume] in Ser um or PlasmaOrdered By: Matthew Leslie on 02-02-2023 Glucose [Mass/Vol] 98 mg/dL 70-100 [facility] Comment on above: ADA recommended refe rence rangeRandom Glucose Reference Range is dependent on time and content of last meal. Glucose of more than 200 mg/dL in a nonstressed, ambulatory subject supports the diagnosis of Diabetes Mellitus. HCG ( test) IApo d Ql (U)Ordered By: Matthew Leslie on 02-02-2023 HCG ( test) Ql (U) Negative [facility] HCG,Urineon 02-02-2023 Beta HCG ( test) Ql (U) Negative Normal [facility] Comment on above: Order Comment: Name Collection Type:: Clean-Voided Midstream Result Comment: PERF ORMED BY: [place] [address] PATHOLOGIST CODING MANAGER MOISES VELASCO M.D. Performed By: #### U HCG, ADDONUAPLUS, URDS, CUU #### [facility] [address] [place] [address] Hematocrit Auto (Bld) [Volum e fraction]Ordered By: Matthew Leslie on 02-02-2023 Hematocrit (Bld) [Volume fraction] 41.1 % 34.0-46.4 [facility] Hemoglobin [Mass/volume] in BloodOrdered By: Matthew Leslie on 02-02-2023 Hemoglobin (Bld) [Mass/Vol] 13.8 g/dL 11.8-15.4 [facility] Hepatic Panelon 02-02-2023 Bilirubin,Indirect 0.5 mg/dL Normal [facility] Comment on above: Performed By: #### U HCG, ADDONUAPLUS, URDS, CUU #### [facility] [address] [place] [address] Bilirubin.indirect [Mass/Vol] 0.10 mg/dL Normal 0.03-0.18 [facility] Comment on above: Performed By: #### U HCG, ADDONUAPLUS, URDS, CUU #### [facility] [address] [place] [address] Ketones Auto test strip (U) [Mass/Vol]Ordered By: Matthew Leslie on 02-02-2023 Ketones (U) [Mass/Vol] 2+ Negative [facility] Leukocytes [#/volume] correc alberto for nucleated erythrocytes in Blood by Automated counOrdered By: Matthew Leslie on 02-02-2023 WBC corrected for nucl RBC Auto (Bld) [#/Vol] 7.6 10*3/uL 3.8-11.6 [facility] Lymphocytes Auto (Bld) [#/Vo l]Ordered By: Matthew Leslie on 02-02-2023 Lymphocytes (Bld) [#/Vol] 2.7 10*3/uL 1.00-4.8 [facility] Lymphocytes/100 WBC Auto (Bl d)Ordered By: Matthew Leslie on 02-02-2023 Lymphocytes/100 WBC (Bld) 36.0 % . [facility] MCH Auto (RBC) [Entitic mass ]Ordered By: Matthew Leslie on 02-02-2023 MCH (RBC) [Entitic mass] 29.4 pg 24.7-34.3 [facility] MCHC Auto (RBC) [Mass/Vol]Or dered By: Matthew Leslie on 02-02-2023 MCHC (RBC) [Mass/Vol] 33.6 g/dL 32.0-35.0 Fir [facility] MCV Auto (RBC) [Entitic vol] Ordered By: Matthew Leslie on 02-02-2023 MCV (RBC) [Entitic vol] 87.6 fL 80-[address] [facility] Monocyte distribution width [Entitic volume] in Blood by AutomatedOrdered By: Matthew Leslie on 02-02-2023 Monocyte distribution width Auto (Bld) [Entitic vol] 17.83 % 0.00-20.00 [facility] Monocytes Auto (Bld) [#/Vol] Ordered By: Matthew Leslie on 02-02-2023 Monocytes (Bld) [#/Vol] 0.6 10*3/uL 0.0-0.8 [facility] Monocytes/100 WBC Auto (Bld) Ordered By: Matthew Leslie on 02-02-2023 Monocytes/100 WBC (Bld) 7.9 % . F [facility] Neutrophils Auto (Bld) [#/Vo l]Ordered By: Matthew Leslie on 02-02-2023 Neutrophils (Bld) [#/Vol] 4.2 10*3/uL 1.8-7.7 [facility] Neutrophils/100 WBC Auto (Bl d)Ordered By: Matthew Leslie on 02-02-2023 Neutrophils/100 WBC (Bld) 54.8 % . [facility] Nitrite Test strip Ql (U)Ord ered By: Matthew Leslie on 02-02-2023 Nitrite Ql (U) Negative Negative [facility] No Panel InformationOrdered By: Matthew Leslie on 02-02-2023 Estimated GFR (CKD-EPI) > 60.0 mL/Min [facility] Creatinine Clearance (Chem 76.05 [facility] Nucleated erythrocytes [Pres ence] in Blood by Automated countOrdered By: Matthew Leslie on 02-02-2023 Nucleated RBC Auto Ql (Bld) 0.0 /100{WBC} 0-0.5 [facility] Opiates [Presence] in Urine by Screen methodOrdered By: Matthew Leslie on 02-02-2023 Opiates Screen Ql (U) Negative Negative [facility] Phencyclidine Screen Ql (U)O rdered By: Matthew Leslie on 02-02-2023 Phencyclidine Ql (U) Negative Negative [facility] Platelet mean volume Auto (B ld) [Entitic vol]Ordered By: Matthew Leslie on 02-02-2023 Platelet mean volume (Bld) [Entitic vol] 9.2 fL 6.3-10.7 [facility] Platelets Auto (Bld) [#/Vol] Ordered By: Matthew Leslie on 02-02-2023 Platelets (Bld) [#/Vol] 322 10*3/uL 150-450 [facility] Potassium [Moles/volume] in Serum or PlasmaOrdered By: Matthew Leslie on 02-02-2023 Potassium [Moles/Vol] 3.8 mmol/L 3.5-5.1 [facility] Protein Auto test strip (U) [Mass/Vol]Ordered By: Matthew Leslie on 02-02-2023 Protein (U) [Mass/Vol] 30 mg/dL Negative [facility] Protein [Mass/volume] in Ser um or PlasmaOrdered By: Matthew Leslie on 02-02-2023 Protein [Mass/Vol] 7.8 g/dL 6.4-8.9 [facility] RBC Auto (Bld) [#/Vol]Ordere d By: Matthew Leslie on 02-02-2023 RBC (Bld) [#/Vol] 4.70 10*6/uL 3.60-5.00 [facility] Serum or plasma albumin/glob ulin mass ratioOrdered By: Matthew Leslie on 02-02-2023 Albumin/Globulin [Mass ratio] 1.4 {ratio} [facility] Serum or plasma anion gap de terminationOrdered By: Matthew Leslie on 02-02-2023 Anion gap [Moles/Vol] 9.5 mmol/L 6.0-15.0 [facility] Serum or plasma non-glucuron idated bilirubin measurement (mass/volume)Ordered By: Matthew Leslie on 02-02-2023 Bilirubin.indirect [Mass/Vol] 0.5 mg/dL [facility] Sodium [Moles/volume] in Ser um or PlasmaOrdered By: Matthew Leslie on 02-02-2023 Sodium [Moles/Vol] 141 mmol/L 136-145 [facility] Specific gravity Auto test s trip (U) [Rel density]Ordered By: Matthew Leslie on 02-02-2023 Specific gravity (U) [Rel density] 1.027 1.001-1.030 [facility] Squamous epithelial cells de tection in urine sediment by light microscopyOrdered By: Matthew Leslie on 02-02-2023 Epithelial cells.squamous LM Ql (Urine sed) 3-4 [HPF] 0-2 [facility] Thyroid Stim Hormone w/Rflxo n 02-02-2023 Thyroid Stim Hormone w/Rflx 3.74 u[iU]/mL Normal 0.45-5.33 [facility] Comment on above: Performed By: #### U HCG, ADDONUAPLUS, URDS, CUU #### [facility] [address] [place] [address] Thyrotropin [Units/volume] i n Serum or PlasmaOrdered By: Matthew Leslie on 02-02-2023 TSH Qn 3.74 m[IU]/L 0.45-5.33 [facility] Urea nitrogen [Mass/volume] in Serum or PlasmaOrdered By: Matthew Leslie on 02-02-2023 Urea nitrogen [Mass/Vol] 11 mg/dL 7-25 [facility] Urine Cultureon 02-02-2023 Bacteria identified Cx Nom (U) No Growth 2 Days PERFORMED BY: [facility] [address] [place] [address] PATHOLOGIST CODING MANAGER MOISES VELASCO M.D. [facility] Comment on above: Performed By: #### U HCG, ADDONUAPLUS, URDS, CUU #### [facility] [address] Urine bacteria detection by automated methodOrdered By: Matthew Leslie on 02-02-2023 Bacteria Auto Ql (U) 1+ None Seen [facility] Urine clarity by refractomet ry automatedOrdered By: Matthew Leslie on 02-02-2023 Clarity Refractometry automated (U) Cloudy Clear [facility] Urine culture routineOrdered By: Matthew Leslie on 02-02-2023 Bacteria identified Cx Nom (U) No Growth 2 Days [facility] Urine glucose measurement by automated test strip (mass/volume)Ordered By: Matthew Leslie on 02-02-2023 Glucose Auto test strip (U) [Mass/Vol] Normal mg/dL Normal [facility] Urine hemoglobin detection b y automated test stripOrdered By: Matthew Leslie on 02-02-2023 Hemoglobin Auto test strip Ql (U) 3+ Negative [facility] Urine leukocyte esterase det ection by automated test stripOrdered By: Matthew Leslie on 02-02-2023 Leukocyte esterase Auto test strip Ql (U) 2+ Negative [facility] Urobilinogen Auto test strip (U) [Mass/Vol]Ordered By: Matthew Leslie on 02-02-2023 Urobilinogen (U) [Mass/Vol] Normal mg/dL Normal [facility] Vitamin D 25 Hydroxy Totalon 02-02-2023 Vitamin D 25 Hydroxy Total 54.2 ng/mL Normal 30-100 [facility] Comment on above: Result Comment: MABLE MIN D STATUS 25(OH)VITAMIN D RANGE (ng/mL) Deficient <20 Insufficient 20 to <30 Sufficient 30 to 100 Reference: Miri MF,Nimisha MCLAIN, Luisa MCCRACKEN, et al. Evaluation,treatment, and prevention of vitamin D deficiency; an Endocrine Society clinical practice guideline. JCEM. 2010; 96(7):1911-30. PERFORMED BY: [facility] [address] [place] [address] PATHOLOGIST CODING MANAGER MOISES VELASCO M.D. Performed By: #### U HCG, MARICRUZ URCARLOS MANUEL, CUU #### [facility] [address] Vitamin D+Metabolites [Mass/ volume] in Serum or PlasmaOrdered By: Matthew Leslie on 02-02-2023 Vitamin D+Metabolites [Mass/Vol] 54.2 ng/mL 30-100 [facility] Comment on above: VITAMIN D STATUS 25( [place])VITAMIN D RANGE (ng/mL) Deficient <20 Insufficient 20 to <30Sufficient 30 to 100Reference: Miri MF,Nimisha MCLAIN, Luisa MCCRACKEN, et al. Evaluation,treatment, and prevention of vitamin D deficiency; an Endocrine Society clinical practice guideline. JCEM. 2010; 96(7):191-. WBC Auto (Bld) [#/Vol]Ordere d By: Matthew Leslie on 02-02-2023 WBC (Bld) [#/Vol] 7.6 10*3/uL 3.8-11.6 [facility] Yeast detection in urine sed iment by light microscopyOrdered By: Matthew Leslie on 02-02-2023 Yeast LM Ql (Urine sed) None seen [HPF] None Se en [facility] pH Auto test strip (U)Ordere d By: Matthew Leslie on 02-02-2023 pH (U) 6.0 [pH] 5.0-9.0 [facility] AMNISUREon 09-16-2022 AMNISURE Positive Abnormal NEGATIVE [facility] Comment on above: Performed By: #### A MNI #### [facility] [address] [address] [address] Adrianna Caldera CBC AUTO DIFFon 09-16-2022 BASO # 0.1 103/ul Normal 0.0-0.1 [facility] Comment on above: Performed By: #### C BC #### [facility] [address] [address] [address] Adrianna Caldera Basophils/100 WBC (Bld) 0.4 % Normal 0.2-2.0 [facility] Comment on above: Performed By: #### C BC #### [facility] [address] [place] [address] Dr. Adrianna Caldera EO # 0.0 103/ul Normal 0.0-0.7 [facility] Comment on above: Performed By: #### C BC #### [facility] [address] [place] [address] Dr. Adrianna Caldera Eosinophils/100 WBC (Bld) 0.1 % Critically low 0.9-7.0 [facility] Comment on above: Performed By: #### C BC #### [facility] [address] [place] [address] Dr. Adrianna Caldera Erythrocyte distribution width (RBC) [Ratio] 12.3 % Normal 11.0-15.0 [facility] Comment on above: Performed By: #### C BC #### [facility] [address] [place] [address] Dr. Adrianna Caldera Hematocrit (Bld) [Volume fraction] 38.3 % Normal 36.0-48.0 [facility] Comment on above: Performed By: #### C BC #### [facility] [address] [place] [address] Dr. Adrianna Caldera Hemoglobin (Bld) [Mass/Vol] 12.8 g/dL Normal 12.0-16.0 [facility] Comment on above: Performed By: #### C BC #### [facility] [address] [place] [address] Dr. Adrianna Caldera IG # 0.20 10e3/ul Critically high 0.00-0.03 [facility] Comment on above: Performed By: #### C BC #### [facility] [address] [place] [address] Dr. Adrianna Caldera IG % 1.0 % Critically high 0.0-0.[address] [facility] Comment on above: Performed By: #### C BC #### [facility] [address] [place] [address] Dr. Adrianna Caldera LYMPH # 1.5 103/ul Normal 1.2-3.8 [facility] Comment on above: Performed By: #### C BC #### [facility] [address] [place] [address] Dr. Adrianna Caldera Lymphocytes/100 WBC (Bld) 7.7 % Critically low 20.5-60.0 [facility] Comment on above: Performed By: #### C BC #### [facility] [address] [place] [address] Dr. Adrianna Caldera MANUAL DIFF REQ NO Normal [facility] Comment on above: Performed By: #### C BC #### [facility] [address] [place] [address] Dr. Adrianna Caldera MCH (RBC) [Entitic mass] 28.9 pg Normal 26.7-34.0 [facility] Comment on above: Performed By: #### C BC #### [facility] [address] [place] [address] Dr. Adrianna Cladera MCHC (RBC) [Mass/Vol] 33.4 g/dL Normal 29.9-35.2 [facility] Comment on above: Performed By: #### C BC #### [facility] [address] [place] [address] Dr. Adrianna Caldera MCV (RBC) [Entitic vol] 86.5 fL Normal 81.0-99.0 [facility] Comment on above: Performed By: #### C BC #### [facility] [address] [place] [address] Dr. Adrianna Caldera MONO # 0.3 103/ul Normal 0.3-0.8 [facility] Comment on above: Performed By: #### C BC #### [facility] [address] [place] [address] Dr. Adrianna Caldera Monocytes/100 WBC (Bld) 1.7 % Normal 1.7-12.0 [facility] Comment on above: Performed By: #### C BC #### [facility] [address] [place] [address] Dr. Adrianna Caldera NEUT # 17.5 103/ul Critically high 1.4-6.5 [facility] Comment on above: Performed By: #### C BC #### [facility] [address] [place] [address] Dr. Adrianna Caldera Neutrophils/100 WBC (Bld) 89.1 % Critically high 43.0-75.0 [facility] Comment on above: Performed By: #### C BC #### [facility] [address] [place] [address] Dr. Adrianna Caldera Platelet mean volume (Bld) [Entitic vol] 10.7 fL Normal 9.5-13.5 [facility] Comment on above: Performed By: #### C BC #### [facility] [address] [place] [address] Dr. Adrianna Caldera PLT 356 103/ul Normal 150-450 [facility] Comment on above: Performed By: #### C BC #### [facility] [address] [place] [address] Dr. Adrianna Caldera RBC 4.43 106/ul Normal 4.20-5.40 [facility] Comment on above: Performed By: #### C BC #### [facility] [address] [place] [address] Dr. Adrianna Caldera WBC 19.6 103/ul Critically high 4.0-11.0 [facility] Comment on above: Performed By: #### C BC #### [facility] [address] [place] [address] Dr. Adrianna Caldera UA (CLEAN/CATCH) POWDER CUTTING OPERATOR/MICRO I F IND.on 09-16-2022 Bilirubin Ql (U) Negative Normal NEGATIVE [facility] Comment on above: Performed By: #### U ACSIND #### [facility] [address] [place] [address] Dr. Adrianna Caldera Clarity (U) CLEAR Normal CLEAR [facility] Comment on above: Performed By: #### U ACSIND #### [facility] [address] [place] [address] Dr. Adrianna Caldera Color (U) LT. YELLOW Normal YELLOW [facility] Comment on above: Performed By: #### U ACSIND #### [facility] [address] [address] [address] Adrianna Caldera Glucose Ql (U) Negative Normal NEGATIVE [facility] Comment on above: Performed By: #### U ACSIND #### [facility] [address] [address] [address] Adrianna Caldera Hemoglobin Ql (U) Negative Normal NEGATIVE [facility] Comment on above: Performed By: #### U ACSIND #### [facility] [address] [address] [address] Adrianna Caldera Ketones Ql (U) Negative Normal NEGATIVE [facility] Comment on above: Performed By: #### U ACSIND #### [facility] [address] [address] [address] Adrianna Caldera LEUKOCYTES Negative Normal NEGATIVE [facility] Comment on above: Performed By: #### U ACSIND #### [facility] [address] [address] [address] Adrianna Caldera Nitrite Ql (U) Negative Normal NEGATIVE [facility] Comment on above: Performed By: #### U ACSIND #### [facility] [address] [address] [address] Adrianna Caldera pH (U) 5.5 [pH] Normal 5-9 [facility] Comment on above: Performed By: #### U ACSIND #### [facility] [address] [place] [address] Dr. Adrianna Caldera SPEC GRAVITY 1.010 Normal 1.005-<=1.0 25 [facility] Comment on above: Performed By: #### U ACSIND #### [facility] [address] [address] [address] Adrianna Caldera UA PROTEIN Negative Normal NEGATIVE/ TRACE [facility] Comment on above: Performed By: #### U ACSIND #### [facility] [address] [address] [address] Adrianna Caldera UR MICRO IND NOT INDICATED Normal [facility] Comment on above: Performed By: #### U ACSIND #### [facility] [address] [address] [address] Adrianna Caldera Urobilinogen Qn (U) 0.2 {Micheal'U}/dL Normal 0.2 - 1. 0 [facility] Comment on above: Performed By: #### U ACSIND #### [facility] [address] [address] [address] Adrianna Caldera US PREG GROWTHon 09-16-2022 [...] KAROL SIDDIQUI Date: 2022-09-16 15:19 Normal [facility] UA (CLEAN/CATCH) POWDER CUTTING OPERATOR/MICRO I F IND.on 09-04-2022 Bilirubin Ql (U) Negative Normal NEGATIVE [facility] Comment on above: Performed By: #### U ACSIND ####[facility] [address] [address]DrAung Caldera Clarity (U) CLEAR Normal CLEAR [facility] Comment on above: Performed By: #### U ACSIND ####[facility] [address] [address]DrAung Caldera Color (U) LT. YELLOW Normal YELLOW [facility] Comment on above: Performed By: #### U ACSIND ####[facility] [address] [address]DrAung Caldera Glucose Ql (U) Negative Normal NEGATIVE [facility] Comment on above: Performed By: #### U ACSIND ####[facility] [address] [address]Dr. Jemimabenito Werner Hemoglobin Ql (U) Negative Normal NEGATIVE [facility] Comment on above: Performed By: #### U ACSIND ####[facility] [address] [place], [place] [address]Dr. Adrianna Caldera Ketones Ql (U) Negative Normal NEGATIVE [facility] Comment on above: Performed By: #### U ACSIND ####[facility] [address] [place], [place] [address]Dr. Adrianna Caldera LEUKOCYTES Negative Normal NEGATIVE [facility] Comment on above: Performed By: #### U ACSIND ####[facility] [address] [place], [place] [address]Dr. Adrianna Caldera Nitrite Ql (U) Negative Normal NEGATIVE [facility] Comment on above: Performed By: #### U ACSIND ####[facility] [address] [place], [place] [address]Dr. Adrianna Caldera pH (U) 7.5 [pH] Normal 5-9 [facility] Comment on above: Performed By: #### U ACSIND ####[facility] [address] [place], [place] [address]Dr. Adrianna Caldera SPEC GRAVITY 1.010 Normal 1.005-<=1.0 25 [facility] Comment on above: Performed By: #### U ACSIND ####[facility] [address] [place], [place] [address]Dr. Adrianna Caldera UA PROTEIN Negative Normal NEGATIVE/ TRACE [facility] Comment on above: Performed By: #### U ACSIND ####[facility] [address] [place], [place] [address]Dr. Adrianna Caldera UR MICRO IND NOT INDICATED Normal [facility] Comment on above: Performed By: #### U ACSIND ####[facility] [address] [place], [place] [address]Dr. Adrianna Caldera Urobilinogen Qn (U) 0.2 {Micheal'U}/dL Normal 0.2 - 1. 0 [facility] Comment on above: Performed By: #### U ACSIND ####[facility] [address] [address]Dr. Adrianna Caldera GTT 3 HR PREGon 08-30-2022 Glucose [Mass/Vol] 88 mg/dL Normal 74-106 [facility] Comment on above: Performed By: #### G TT3P ####[facility] [address] [address]Dr. Adrianna Caldera Glucose [Mass/Vol] 167 mg/dL Normal [facility] Comment on above: Performed By: #### G TT3P ####[facility] [address] [address]Dr. Adrianna Caldera Glucose [Mass/Vol] 136 mg/dL Normal [facility] Comment on above: Performed By: #### G TT3P ####[facility] [address] [place], [place] [address]Dr. Adrianna Caldera Glucose [Mass/Vol] 144 mg/dL Normal [facility] Comment on above: Performed By: #### G TT3P ####[facility] [address] [place], [place] [address]Dr. Adrianna Caldera US PREG PLACENTAon 3 US [...] KAROL SIDDIQUI Date: 2022-08-17 15:46 Normal [facility] CBC with Diffon 08-10-2022 Abs. Basophil 0.04 k/uL Normal 0.00-0.20 [facility] Comment on above: Performed By: #### L IP, CDP, CP #### [facility] [address] [place] [address] Pantograph Operator: Cholo Alicea MD Abs.Imm.Granulocyte 0.10 k/uL Normal 0.00-0.30 [facility] Comment on above: Performed By: #### L IP CDP, CP #### [facility] [address] [place] [address] Dr[place], [place] [id number] Pantograph Operator: Cholo Alicea MD Abs.Neutrophil (Seg) 9.26 k/uL High 1.50-8.10 [facility] Comment on above: Performed By: #### L IP CDP, CP #### [address] [place] [address] Pantograph Operator: Cholo Alicea MD Basophils/100 WBC (Bld) 0 % Normal 0-2 [facility] Comment on above: Performed By: #### L TATA LOPEZ, CP #### [address] [place], [id number] Pantograph Operator: Cholo Alicea MD Eosinophils (Bld) [#/Vol] 0.05 10*3/uL Normal 0.00-0.44 [facility] Comment on above: Performed By: #### L TATA LOPEZ, CP #### [address] [place], [place] [id number] Pantograph Operator: Cholo Alicea MD Eosinophils/100 WBC (Bld) 0 % Low 1-4 [facility] Comment on above: Performed By: #### L TATA LOPEZ, CP #### [address] [place], [place] [id number] Pantograph Operator: Cholo Alicea MD Erythrocyte distribution width (RBC) [Ratio] 12.5 % Normal 11.8-14.4 [facility] Comment on above: Performed By: #### L IP CDP, CP #### [address] [place], [place] [id number] Pantograph Operator: Cholo Alicea MD Hematocrit (Bld) [Volume fraction] 35.2 % Low 36.3-47.1 [facility] Comment on above: Performed By: #### L IP CDP, CP #### [address] [place] [address] Pantograph Operator: Cholo Alicea MD Hemoglobin (Bld) [Mass/Vol] 11.6 g/dL Low 11.9-15.1 [facility] Comment on above: Performed By: #### L IP, CDP, CP #### [address] [place], [place] [id number] Pantograph Operator: Cholo Alicea MD Immature granulocytes/100 WBC (Bld) 1 % High 0 [facility] Comment on above: Performed By: #### L IP CDP, CP #### [address] [place], [place] 7603483 Pantograph Operator: Cholo Alicea MD Lymphocytes (Bld) [#/Vol] 1.99 10*3/uL Normal 1.10-3.70 [facility] Comment on above: Performed By: #### L TATA LOPEZ, CP #### [address] [place] [address] Pantograph Operator: Cholo Alicea MD Lymphocytes/100 WBC (Bld) 17 % Low 24-43 [facility] Comment on above: Performed By: #### L TATA LOPEZ, CP #### [address] [place], [place] 9327583 Pantograph Operator: Cholo Alicea MD MCH (RBC) [Entitic mass] 30.8 pg Normal 25.2-33.5 [facility] Comment on above: Performed By: #### L JESSICA CDP, CP #### [address] [place] [address] Pantograph Operator: Cholo Alicea MD MCHC (RBC) [Mass/Vol] 33.0 g/dL Normal 28.4-34.8 [facility] Comment on above: Performed By: #### L IP, CDP, CP #### [facility] [address] [place], [place] [address] Pantograph Operator: Cholo Alicea MD MCV (RBC) [Entitic vol] 93.4 fL Normal 82.6-102.9 [facility] Comment on above: Performed By: #### L IP, CDP, CP #### [address] [place], [place] [address] Pantograph Operator: Cholo Alicea MD Monocytes (Bld) [#/Vol] 0.43 10*3/uL Normal 0.10-1.20 [facility] Comment on above: Performed By: #### L IP, CDP, CP #### [address] [place], [place] [address] Pantograph Operator: Cholo Alicea MD Monocytes/100 WBC (Bld) 4 % Normal 3-12 [facility] Comment on above: Performed By: #### L IP, CDP, CP #### [address] [place], [id number] Pantograph Operator: Chool Alicea MD Neutrophil (Seg) 78 % High 36-65 [facility] Comment on above: Performed By: #### L IP, CDP, CP #### [address] [place], [place] [address] Pantograph Operator: Cholo Alicea MD NRBC Automated 0.0 per 100 WBC Normal 0.0 [facility] Comment on above: Performed By: #### L IP, CDP, CP #### [address] [place], [id number] Pantograph Operator: Cholo Alicea MD Platelet mean volume (Bld) [Entitic vol] 10.6 fL Normal 8.1-13.5 [facility] Comment on above: Performed By: #### L IP, CDP, CP #### [facility] [address] [place], [place] [id number] Pantograph Operator: Cholo Alicea MD Platelets (Bld) [#/Vol] 333 10*3/uL Normal 138-453 [facility] Comment on above: Performed By: #### L IP, CDP, CP #### [facility] [address] [place] [address] Pantograph Operator: Cholo Alicea MD RBC (Bld) [#/Vol] 3.77 10*6/uL Low 3.95-5.11 [facility] Comment on above: Performed By: #### L IP, CDP, CP #### [facility] [address] [place] [address] Pantograph Operator: Cholo Alicea MD WBC (Bld) [#/Vol] 11.9 10*3/uL High 3.5-11.3 [facility] Comment on above: Performed By: #### L IP, CDP, CP #### [facility] [address] [place], [place] 1557983 Pantograph Operator: Cholo Alicea MD Glucose Andrae Scr 50gon 2022 Glucose [Mass/Vol] 161 mg/dL High 70-135 [facility] Comment on above: Performed By: #### L IP, CDP, CP #### [facility] [address] [place], [place] [id number] Pantograph Operator: Cholo Alicea MD Glu Administered via Glucola Normal [facility] Comment on above: Performed By: #### L IP, CDP, CP #### [facility] [address] [place] [address] Pantograph Operator: Cholo Alicea MD UA (CLEAN/CATCH) POWDER CUTTING OPERATOR/MICRO I F IND.on 07-21-2022 Bilirubin Ql (U) Negative Normal NEGATIVE [facility] Comment on above: Performed By: #### U ACSIND ####[facility] [address] [place] [address]Dr. Adrianna Caldera Clarity (U) CLEAR Normal CLEAR [facility] Comment on above: Performed By: #### U ACSIND ####[facility] [address] [place], [place] [address]Dr. Adrianna Caldera Color (U) LT. YELLOW Normal YELLOW [facility] Comment on above: Performed By: #### U ACSIND ####[facility] [address] [place], [place] [address]Dr. Adrianna Caldera Glucose Ql (U) Negative Normal NEGATIVE [facility] Comment on above: Performed By: #### U ACSIND ####[facility] [address] [place], [place] [address]Dr. Adrianna Caldera Hemoglobin Ql (U) Negative Normal NEGATIVE [facility] Comment on above: Performed By: #### U ACSIND ####[facility] [address] [place], [place] [address]Dr. Adrianna Caldera Ketones Ql (U) Negative Normal NEGATIVE [facility] Comment on above: Performed By: #### U ACSIND ####[facility] [address] [place], [place] [address]Dr. Adrianna Caldera LEUKOCYTES Negative Normal NEGATIVE [facility] Comment on above: Performed By: #### U ACSIND ####[facility] [address] [place], [place] [address]Dr. Adrianna Caldera Nitrite Ql (U) Negative Normal NEGATIVE [facility] Comment on above: Performed By: #### U ACSIND ####[facility] [address] [place], [place] [address]Dr. Adrianna Caldera pH (U) 7.0 [pH] Normal 5-9 [facility] Comment on above: Performed By: #### U ACSIND ####[facility] [address] [place], [place] [address]Dr. Adrianna Caldera SPEC GRAVITY 1.010 Normal 1.005-<=1.0 25 [facility] Comment on above: Performed By: #### U ACSIND ####[facility] [address] [place], [place] [address]Dr. Adrianna Caldera UA PROTEIN Negative Normal NEGATIVE/ TRACE [facility] Comment on above: Performed By: #### U ACSIND ####[facility] [address] [place] [id number]. Adrianna Caldera UR MICRO IND NOT INDICATED Normal [facility] Comment on above: Performed By: #### U ACSIND ####[facility] [address] [place] [address]Dr. Adrianna Caldera Urobilinogen Qn (U) 0.2 {Micheal'U}/dL Normal 0.2 - 1. 0 [facility] Comment on above: Performed By: #### U ACSIND ####[facility] [address] [place] [id number]. Adrianna Caldera US PREG ANATOMY SINGLEon US [...] by: KAROL SIDDIQUI Date: 2022-07-21 16:41 Normal [facility] PAP ACOG PANEL 2: 23 to 31on 07-12-2022 . . Normal [facility] Comment on above: Performed By: #### [id number] ####[facility] [address] [place] [address]DrAung Caldera Age Gdln ACOG Testing - Normal [facility] Comment on above: Performed By: #### 4 [id number] ####[facility] [address] [place] [address]DrAung Caldera DIAGNOSIS: Comment [facility] Comment on above: Result Comment: NEGA TIVE FOR INTRAEPITHELIAL LESION OR MALIGNANCY. Performed By: #### 4 [id number] ####[facility] [address] [place], [place] [address]DrAung Caldera Methodology: Comment Normal [facility] Comment on above: Result Comment: This liquid based ThinPrep(R) pap test was screened with the use of an image guided system. Performed By: #### 4 [id number] ####[facility] [address] [place], [place] [address]DrAung Caldera Note: Comment [facility] Comment on above: Result Comment: The Pap smear is a screening test designed to aid in the detection of premalignant and malignant conditions of the uterine cervix. It is not a diagnostic procedure and should not be used as the sole means of detecting cervical cancer. Both false-positive and false-negative reports do occur. . Performed By: #### 4 [id number] ####[facility] [address] [place], [place] [address]DrAung Caldera Performed by: Comment Normal [place] Comment on above: Result Comment: [place] Yin, Senior Cyber Security Analyst (ASCP) Performed By: #### 4 [id number] ####[facility] [address] [place] [address]DrAung Caldera Reflex Criteria: Comment Normal [facility] Comment on above: Result Comment: The HPV DNA reflex criteria were not met with this specimen result therefore, no HPV testing was performed. . Performed By: #### 4 [id number] ####[facility] [address] [place] [address]Dr. Adrianna Caldera Specimen adequacy: Comment Normal [facility] Comment on above: Result Comment: Sati sfactory for evaluation. No endocervical component is identified. Performed By: #### 4 [id number] ####[facility] [address] [place] [address]Dr. Adrianna Caldera CHLAMYDIA/GONOCOCCUS ALEKSANDER (SW AB/URINE/PAPon 07-07-2022 Chlamydia trachomatis, ALEKSANDER Negative Normal Negative [facility] Comment on above: Performed By: #### C T/NGNA ####[facility] [address] [place] [address]DrAung Caldera Neisseria gonorrhoeae, ALEKSANDER Negative Normal Negative [facility] Comment on above: Performed By: #### C T/NGNA ####[facility] [address] [place] [address]Dr. Adrianna Caldera VAGINITIS/VAGINOSIS DNA PROB Scott 07-07-2022 Sherley species Negative Normal Negative [facility] Comment on above: Performed By: #### U ACSIND #### [facility] [address] [place] [address] Dr. Adrianna Caldera Gardnerella vaginalis Negative Normal Negative [facility] Comment on above: Performed By: #### U ACSIND #### [facility] [address] [place] [address] Dr. Adrianna Caldera Trichomonas vaginalis Negative Normal Negative [facility] Comment on above: Performed By: #### U ACSIND #### [facility] [address] [place] [address] Dr. Adrianna Caldera Cult,Urineon 07-02-2022 Cult,Urine Specimen Description .CLEAN CATCH URINE Culture NO SIGNIFICANT GROWTH Report Status FINAL 07/02/2022 Normal [facility] Comment on above: Performed By: #### L IP, CDP, CP #### [facility] [address] [place] [address] Pantograph Operator: Cholo Alicea MD ABO/RHon 06-30-2022 ABO/Rh Negative [facility] ABO/Rh(D)on 06-30-2022 ABO/Rh(D) Negative Normal [facility] Comment on above: Performed By: #### L IP, CDP, CP #### [facility] [address] [place] [address] Pantograph Operator: Cholo Alicea MD CBC with Auto Differentialon 06-30-2022 Absolute Eos # 0.06 [place] S [facility] Absolute Immature Granulocyte 0.07 [facility] Absolute Lymph # 2.91 [facility] Absolute Wells # 0.66 [facility] RS [facility] Basophils (Bld) [#/Vol] 0.04 10*3/uL [facility] Basophils/100 WBC (Bld) 0 % 0 - 2 % B [place] Eosinophils/100 WBC (Bld) 1 % 1 - [...] % 3 - 12 % B [place] NRBC Automated 0.0 0.0 per 100 WBC [...] HOSPITAL WBC (Bld) [#/Vol] 12.1 10*3/uL High [facility] S [facility] CBC with Diffon 06-30-2022 Abs. Basophil 0.04 k/uL Normal 0.00-0.20 [facility] Comment on above: Performed By: #### L TATA LOPEZ, CP #### [facility] [address] [place] [address] Dr. [place] [id number] Pantograph Operator: Cholo Alicea MD Abs.Imm.Granulocyte 0.07 k/uL Normal 0.00-0.30 [facility] Comment on above: Performed By: #### L TATA LOPEZ, CP #### [address] [place] [id number] Pantograph Operator: Cholo Alicea MD Abs.Neutrophil (Seg) 8.40 k/uL High 1.50-8.10 [facility] Comment on above: Performed By: #### L TATA LOPEZ, CP #### [address] [place] [address] Pantograph Operator: Cholo Alicea MD Basophils/100 WBC (Bld) 0 % Normal 0-2 [facility] Comment on above: Performed By: #### L IP CDP, CP #### [address] [place] [id number] Pantograph Operator: Cholo Alicea MD Eosinophils (Bld) [#/Vol] 0.06 10*3/uL Normal 0.00-0.44 [facility] Comment on above: Performed By: #### L IP, CDP, CP #### [address] [place], [place] 1138483 Pantograph Operator: Cholo Alicea MD Eosinophils/100 WBC (Bld) 1 % Normal 1-4 [facility] Comment on above: Performed By: #### L IP, CDP, CP #### [address] [place] [address] Pantograph Operator: Cholo Alicea MD Erythrocyte distribution width (RBC) [Ratio] 12.2 % Normal 11.8-14.4 [facility] Comment on above: Performed By: #### L IP, CDP, CP #### [address] [place], [facility] Pantograph Operator: Cholo Alicea MD Hematocrit (Bld) [Volume fraction] 35.2 % Low 36.3-47.1 [facility] Comment on above: Performed By: #### L IP, CDP, CP #### [address] [place], [place] 0573583 Pantograph Operator: Cholo Alicea MD Hemoglobin (Bld) [Mass/Vol] 11.9 g/dL Normal 11.9-15.1 [facility] Comment on above: Performed By: #### L IP, CDP, CP #### [address] [place], [place] 9849983 Pantograph Operator: Cholo Alicea MD Immature granulocytes/100 WBC (Bld) 1 % High 0 [facility] Comment on above: Performed By: #### L IP, CDP, CP #### [address] [place], [place] 7762183 Pantograph Operator: Cholo Alicea MD Lymphocytes (Bld) [#/Vol] 2.91 10*3/uL Normal 1.10-3.70 [facility] Comment on above: Performed By: #### L IP, CDP, CP #### [address] [place], [place] 0750983 Pantograph Operator: Cholo Alicea MD Lymphocytes/100 WBC (Bld) 24 % Normal 24-43 [facility] Comment on above: Performed By: #### L IP, CDP, CP #### [address] [place], [place] 9038983 Pantograph Operator: Cholo Alicea MD MCH (RBC) [Entitic mass] 30.7 pg Normal 25.2-33.5 [facility] Comment on above: Performed By: #### L IP, CDP, CP #### [address] [place], [facility] Pantograph Operator: Cholo Alicea MD MCHC (RBC) [Mass/Vol] 33.8 g/dL Normal 28.4-34.8 [facility] Comment on above: Performed By: #### L TATA LOPEZ, CP #### [address] [place], [place] 6444483 Pantograph Operator: Cholo Alicea MD MCV (RBC) [Entitic vol] 91.0 fL Normal 82.6-102.9 [facility] Comment on above: Performed By: #### L IP, CDP, CP #### [address] [place], [place] 4519383 Pantograph Operator: Cholo Alicea MD Monocytes (Bld) [#/Vol] 0.66 10*3/uL Normal 0.10-1.20 [facility] Comment on above: Performed By: #### L IP, CDP, CP #### [address] [place] [address] Pantograph Operator: Cholo Alicea MD Monocytes/100 WBC (Bld) 5 % Normal 3-12 [facility] Comment on above: Performed By: #### L IP, CDP, CP #### [facility] [address] [place], [place] [address] Pantograph Operator: Cholo Alicea MD Neutrophil (Seg) 69 % High 36-65 [facility] Comment on above: Performed By: #### L IP, CDP, CP #### [facility] [address] [place], [id number] Pantograph Operator: Cholo Alicea MD NRBC Automated 0.0 per 100 WBC Normal 0.0 [facility] Comment on above: Performed By: #### L IP, CDP, CP #### [address] [place], [id number] Pantograph Operator: Cholo Alicea MD Platelet mean volume (Bld) [Entitic vol] 10.5 fL Normal 8.1-13.5 [facility] Comment on above: Performed By: #### L IP, CDP, CP #### [address] [place], [place] 7573683 Pantograph Operator: Cholo Alicea MD Platelets (Bld) [#/Vol] 301 10*3/uL Normal 138-453 [facility] Comment on above: Performed By: #### L IP, CDP, CP #### [address] [place], [place] [address] Pantograph Operator: Cholo Alicea MD RBC (Bld) [#/Vol] 3.87 10*6/uL Low 3.95-5.11 [facility] Comment on above: Performed By: #### L IP, CDP, CP #### [address] [place], [place] 7186883 Pantograph Operator: Cholo Alicea MD WBC (Bld) [#/Vol] 12.1 10*3/uL High 3.5-11.3 [facility] Comment on above: Performed By: #### L IP, CDP, CP #### [facility] [address] [place] [address] Pantograph Operator: Cholo Alicea MD [facility]-2022 Albumin [Mass/Vol] 3.6 g/dL 3.5 - [...] (Bld) [Mass ratio] 15 9 - 20 [facility] Comp Metabolic Profon 2022 Bilirubin [Mass/Vol] mg/dL Low 0.3-1.2 [facility] Comment on above: Performed By: #### L IP, CDP, CP #### [facility] [address] [place] [address] Pantograph Operator: Cholo Alicea MD Albumin [Mass/Vol] 3.6 g/dL Normal 3.5-5.2 [facility] Comment on above: Performed By: #### L IP, CDP, CP #### [facility] [address] [place] [address] [place] [address] Pantograph Operator: Cholo Alicea MD Albumin/Glob Ratio 1.1 Normal 1.0-2.5 [facility] Comment on above: Performed By: #### L IP, CDP, CP #### [facility] [address] [place] [address] Pantograph Operator: Cholo Alicea MD Alkaline Phos 74 U/L Normal 35-104 [facility] Comment on above: Performed By: #### L IP, CDP, CP #### [facility] [address] [place] [address] Pantograph Operator: Cholo Alicea MD ALT [Catalytic activity/Vol] 9 U/L Normal 5-33 [facility] Comment on above: Performed By: #### L IP, CDP, CP #### [facility] [address] [place], [place] 0585483 Pantograph Operator: Cholo Alicea MD Anion gap [Moles/Vol] 13 mmol/L Normal 9-17 [facility] Comment on above: Performed By: #### L IP, CDP, CP #### [facility] [address] [place], [place] 5601483 Pantograph Operator: Cholo Alicea MD AST [Catalytic activity/Vol] 18 U/L Normal <32 [facility] Comment on above: Performed By: #### L IP, CDP, CP #### [facility] [address] [place], [place] 4532183 Pantograph Operator: Cholo Alicea MD BUN/CRE Ratio 15 Normal 9-20 [facility] Comment on above: Performed By: #### L IP, CDP, CP #### [facility] [address] [place], [place] 8288883 Pantograph Operator: Cholo Alicea MD Calcium [Mass/Vol] 9.5 mg/dL Normal 8.6-10.4 [facility] Comment on above: Performed By: #### L IP, CDP, CP #### [facility] [address] [place], [place] [phone] Pantograph Operator: Cholo Alicea MD Chloride [Moles/Vol] 101 mmol/L Normal 98-107 [facility] Comment on above: Performed By: #### L IP, CDP, CP #### [facility] [address] [place], [place] 6101183 Pantograph Operator: Cholo Alicea MD CO2 [Moles/Vol] 21 mmol/L Normal 20-31 [facility] Comment on above: Performed By: #### L IP, CDP, CP #### [facility] [address] [place] [address] Pantograph Operator: Cholo Alicea MD Creatinine [Mass/Vol] 0.55 mg/dL Normal 0.50-0.90 [facility] Comment on above: Performed By: #### L IP CDP, CP #### [facility] [address] [place] [address] Pantograph Operator: Cholo Alicea MD GFR/1.73 sq M.predicted among non-blacks MDRD (S/P/Bld) [Vol rate/Area] mL/min/{1.73_m2} Normal >60 [facility] Comment on above: Result Comment: These results [...] By: #### L IP CDP, CP #### [facility] [address] [place] [address] Pantograph Operator: Cholo Alicea MD Glucose [Mass/Vol] 84 mg/dL Normal 70-99 [facility] Comment on above: Performed By: #### L TATA LOPEZ, CP #### [facility] [address] [place] [address] Pantograph Operator: Cholo Alicea MD Potassium [Moles/Vol] 3.8 mmol/L Normal 3.7-5.3 [facility] Comment on above: Performed By: #### L IP CDP, CP #### [facility] [address] [place] [address] Pantograph Operator: Cholo Alicea MD Protein [Mass/Vol] 6.9 g/dL Normal 6.4-8.3 [facility] Comment on above: Performed By: #### L IP, CDP, CP #### [facility] [address] [place] [address] Pantograph Operator: Cholo Alicea MD Sodium [Moles/Vol] 135 mmol/L Normal 135-144 [facility] Comment on above: Performed By: #### L TATA LOPEZ, CP #### [facility] [address] [place] [address] Pantograph Operator: Cholo Alicea MD Urea nitrogen [Mass/Vol] 8 mg/dL Normal 6-20 [facility] Comment on above: Performed By: #### L TATA LOPEZ, CP #### [facility] [address] [place] [address] Pantograph Operator: Cholo Alicea MD Lipaseon 1 Lipase [Catalytic activity/Vol] 30 U/L Normal 13-60 [facility] Comment on above: Performed By: #### L TATA LOPEZ, CP #### [facility] [address] [place] [address] Pantograph Operator: Cholo Alicea MD Lipase [Catalytic activity/Vol] 30 U/L 13 - 60 U/L [facility] Microscopic Urinalysison Bacteria, UA 2+ Abnormal None [facility] Epithelial Cells UA 0 TO 2 [facility] Interpretation and review of laboratory results Abnormal [facility] Mucus, UA 3+ Abnormal None [facility] RBC clumps Auto (Urine sed) [#/Area] 0 TO 2 [facility] WBC, UA 0 TO 2 [facility] PTon 06-30-2022 INR Coag (PPP) [Relative time] 1.0 {INR} Normal [facility] Comment on above: Result Comment: Therapeutic Range: Moderate Anticoagulant Intensity: INR = 2.0-3.0 High Anticoagulant Intensity: INR = 2.5-3.5 Performed By: #### L TATA LOPEZ, CP #### [facility] [address] [place] [address] Pantograph Operator: Cholo Alicea MD PT Coag (PPP) [Time] 13.3 s Normal 11.5-14.2 [facility] Comment on above: Performed By: #### L IP, CDP, CP #### [facility] [address] [place] [address] Pantograph Operator: Cholo Alicea MD Protime-INRon INR Coag (PPP) [Relative time] 1.0 {INR} [facility] Comment on above: Therapeutic Range: Moderate Anticoagulant Intensity: INR = 2.0-3.0 High Anticoagulant Intensity: INR = 2.5-3.5 PT Coag (PPP) [Time] 13.3 s [facility] UA w/Reflex Cultureon 2022 Bilirubin, SemiQt,Ur Negative Normal NEG [facility] Comment on above: Performed By: #### U MICAO, UAX #### [facility] [address] [place] [address] Pantograph Operator: Cholo Alicea MD Blood, Urine Negative Normal NEG [facility] Comment on above: Performed By: #### U MICAO, UAX #### [facility] [address] [place] [address] Pantograph Operator: Cholo Alicea MD Clarity (U) Clear Normal CLEAR [facility] Comment on above: Performed By: #### U MICAO, UAX #### [facility] [address] [place] [address] Pantograph Operator: Cholo Alicea MD Color (U) Yellow Normal YEL [facility] Comment on above: Performed By: #### U MICAO, UAX #### [facility] [address] [place] [address] Pantograph Operator: Cholo Alicea MD Glucose Ql (U) Negative Normal NEG [facility] Comment on above: Performed By: #### U MICAO, UAX #### [facility] [address] [place] [address] Pantograph Operator: Cholo Alicea MD Ketones Ql (U) Negative Normal NEG [facility] in [facility] Comment on above: Performed By: #### U MICAO, UAX #### [facility] [address] [place] [address] Dr. [place], [place] [id number] Pantograph Operator: Cholo Alicea MD Leukocyte esterase Test strip Ql (U) Negative Normal NEG [facility] Comment on above: Performed By: #### U MICAO, UAX #### [facility] [address] [place] [address] [place] [address] Pantograph Operator: Cholo Alicea MD Nitrite,Ur Negative Normal NEG [facility] Comment on above: Performed By: #### U MICAO, UAX #### [facility] [address] [place] [address] Dr. [place], [place] [id number] Pantograph Operator: Cholo Alicea MD PH,Ur 6.0 Normal 5.0-9.0 [facility] Comment on above: Performed By: #### U MICAO, UAX #### [facility] [address] [place] [address] [place] [address] Pantograph Operator: Cholo Alicea MD Protein Ql (U) Negative Normal NEG [facility] Comment on above: Performed By: #### U MICAO, UAX #### [facility] [address] [place] [address] Dr. [place], [place] [id number] Pantograph Operator: Cholo Alicea MD Spec. [place],Ur 1.025 High 1.010-1.020 [facility] Comment on above: Performed By: #### U MICAO, UAX #### [facility] [address] [place] [address] [place] [address] Pantograph Operator: Cholo Alicea MD Urobilinogen,Ur Normal Normal NORM [facility] Comment on above: Performed By: #### U MICAO, UAX #### [facility] [address] [place] [address] [place] [address] Pantograph Operator: Cholo Alicea MD Urinalysis with Reflex to Cu ltureon 06-30-2022 Bilirubin Urine Negative NEGATIVE [facility] Color, UA Yellow Yellow [facility] Glucose Auto test strip (U) [Mass/Vol] Negative NEGATIVE [facility] Interpretation and review of laboratory results Abnormal [facility] Ketones (U) [Mass/Vol] Negative NEGATIVE [facility] Leukocyte esterase Auto test strip Ql (U) Negative NEGATIVE [facility] Nitrite Auto test strip Ql (U) Negative NEGATIVE [facility] Protein (U) [Mass/Vol] 6.0 mg/dL 5.0 - 9.0 [facility] Protein (U) [Mass/Vol] Negative NEGATIVE [facility] Specific [place], UA 1.025 High 1.010 - 1.020 [facility] Turbidity UA Clear Clear [facility] Urine Hgb Negative NEGATIVE [facility] Urobilinogen, Urine Normal Normal [facility] Urinalysis,Microon 3 Bacteria 2+ Abnormal [facility] Comment on above: Performed By: #### U DAHLIAO UAX #### [facility] [address] [place] [address] Pantograph Operator: Cholo Alicea MD Epithelial cells LM Ql (Urine sed) 0 TO 2 Normal 0-25 [facility] Comment on above: Performed By: #### U DAHLIAO, UAX #### [facility] [address] [place], [id number] Pantograph Operator: Cholo Alicea MD Mucus Strands 3+ Abnormal [facility] Comment on above: Performed By: #### U MICAO, UAX #### [facility] [address] [place] [address] Pantograph Operator: Cholo Alicea MD Urine RBC's 0 TO 2 Normal 0-2 [facility] Comment on above: Performed By: #### U MICAO, UAX #### [facility] [address] [place] [address] Pantograph Operator: Cholo Alicea MD Urine WBC's 0 TO 2 Normal 0-5 [facility] Comment on above: Performed By: #### U MICAO, UAX #### [facility] [address] [place] [address] Pantograph Operator: Cholo Alicea MD No Panel Informationon 06-17 Body mass index (BMI) [Percentile] Per age and sex 0.1 {percentile} Invalid Interpretation Code [employer] [id number] Per age and sex 0.1 {percentile} Invalid Interpretation Code [employer] HEP B SURFACE ANTIGEN SCREEN on 06-08-2022 HBsAg Screen Negative Normal Negative [facility] [place] [facility] Comment on above: Performed By: #### U ACSIND #### [facility] [address] [place] [address] Dr. Adrianna Caldera HEPATITIS C VIRUS AB W/ REFL EX QUANTon 06-08-2022 HCV AB <0.1 Normal 0.0-0.9 [facility] Comment on above: Performed By: #### U ACSIND #### [facility] [address] [place] [address] Dr. Adrianna Caldera Interpretation: Comment Normal [facility] Comment on above: Result Comment: Nega tive Not infected with HCV, unless recent infection is suspected or other evidence exists to indicate HCV infection. Performed By: #### U ACSIND #### [facility] [address] [place] [address] Dr. Adrianna Caldera HIV 1 AND 2 WITH REFLEXon HIV Screen 4th Generation wRfx Non-Reactive Normal Non Reactive [facility] Comment on above: Result Comment: HIV Negative HIV-1/HIV-2 antibodies and HIV-1 p24 antigen were NOT detected. There is no laboratory evidence of HIV infection. Performed By: #### U ACSIND #### [facility] [address] [place] [address] Dr. Adrianna Caldera RPR QUANTon 06-08-2022 Rapid Plasma Reagin, Quant Non-Reactive Normal NonRea<1:1 [facility] [place] [facility] Comment on above: Result Comment: Janet richards Note: This test does not meet current guidelines for screening and diagnosis of syphilis. This test is intended for following treatment response in patients being treated for syphilis infection. To screen for syphilis infection, a reflex cascade that includes both RPR and a treponema-specific assay should be utilized, such as Treponema pallidum (Syphilis) Screening [place] (299888) or Rapid Plasma Reagin (RPR) Test With Reflex to Quantitative RPR and Confirmatory Treponema pallidum Antibodies (058221). Performed By: #### U ACSIND #### [facility] [address] [place] [address] Dr. Adrianna Caldera RUBELLA AB IGGon 06-08-2022 Rubella Antibodies, IgG 4.69 index Normal Immu ne >0.99 [facility] [place] [facility] Comment on above: Result Comment: Non- immune <0.90 Equivocal 0.90 - 0.99 Immune >0.99 Performed By: #### R UBIGG ####[facility] [id number] [address]Dr. Adrianna Caldera CBC AUTO DIFFon 06-05-2022 BASO # 0.0 103/ul Normal 0.0-0.1 [facility] [place] [facility] Comment on above: Performed By: #### C BC #### [facility] [address] [place] [address] Dr. Adrianna Caldera Basophils/100 WBC (Bld) 0.3 % Normal 0.2-2.0 [facility] Comment on above: Performed By: #### C BC #### [facility] [address] [place] [address] Dr. Adrianna Caldera EO # 0.1 103/ul Normal 0.0-0.7 [facility] [place] [facility] Comment on above: Performed By: #### C BC #### [facility] [address] [place] [address] Dr. Adrianna Caldera Eosinophils/100 WBC (Bld) 0.6 % Critically low 0.9-7.0 [facility] [place] [facility] Comment on above: Performed By: #### C BC #### [facility] [address] [address] [address] Adrianna Caldera Erythrocyte distribution width (RBC) [Ratio] 11.7 % Normal 11.0-15.0 [facility] [place] [facility] Comment on above: Performed By: #### C BC #### [facility] [address] [place] [address] Dr. Adrianna Caldera Hematocrit (Bld) [Volume fraction] 33.8 % Critically low 36.0-48.0 [facility] [place] [facility] Comment on above: Performed By: #### C BC #### [facility] [address] [place] [address] Dr. Adrianna Caldera Hemoglobin (Bld) [Mass/Vol] 12.6 g/dL Normal 12.0-16.0 [facility] [place] [facility] Comment on above: Performed By: #### C BC #### [facility] [address] [place] [address] Dr. Adrianna Caldera IG # 0.05 10e3/ul Critically high 0.00-0.03 [facility] Comment on above: Performed By: #### C BC #### [facility] [address] [place] [address] Dr. Adrianna Caldera IG % 0.4 % Normal 0.0-0.5 [facility] [place] [facility] Comment on above: Performed By: #### C BC #### [facility] [address] [place] [address] Dr. Adrianna Caldera LYMPH # 2.4 103/ul Normal 1.2-3.8 [facility] [place] [facility] Comment on above: Performed By: #### C BC #### [facility] [address] [place] [address] Dr. Adrianna Caldera Lymphocytes/100 WBC (Bld) 21.1 % Normal 20.5-60.0 [facility] [place] [facility] Comment on above: Performed By: #### C BC #### [facility] [address] [place] [address] Dr. Adrianna Caldera MANUAL DIFF REQ NO Normal [facility] Comment on above: Performed By: #### C BC #### [facility] [address] [address] [address] Adrianna Caldera MCH (RBC) [Entitic mass] 30.3 pg Normal 26.7-34.0 [facility] [place] [facility] Comment on above: Performed By: #### C BC #### [facility] [address] [place] [address] Dr. Adrianna Caldera MCHC (RBC) [Mass/Vol] 37.3 g/dL Critically high 29.9-35.2 [facility] [place] [facility] Comment on above: Performed By: #### C BC #### [facility] [address] [place] [address] Dr. Adrianna Caldera MCV (RBC) [Entitic vol] 81.3 fL Normal 81.0-99.0 [facility] Comment on above: Performed By: #### C BC #### [facility] [address] [place] [address] Dr. Adrianna Caldera MONO # 0.6 103/ul Normal 0.3-0.8 [facility] [place] [facility] Comment on above: Performed By: #### C BC #### [facility] [address] [place] [address] Dr. Adrianna Caldera Monocytes/100 WBC (Bld) 5.4 % Normal 1.7-12.0 [facility] Comment on above: Performed By: #### C BC #### [facility] [address] [place] [address] Dr. Adrianna Caldera NEUT # 8.3 103/ul Critically high 1.4-6.[address] [facility] Comment on above: Performed By: #### C BC #### [facility] [address] [place] [address] Dr. Adrianna Caldera Neutrophils/100 WBC (Bld) 72.2 % Normal 43.0-75.0 [facility] [place] [facility] Comment on above: Performed By: #### C BC #### [facility] [address] [place] [address] Dr. Adrianna Caldera Platelet mean volume (Bld) [Entitic vol] 10.6 fL Normal 9.5-13.5 [facility] [place] [facility] Comment on above: Performed By: #### C BC #### [facility] [address] [place], [place] [address] Dr. Adrianna Caldera PLT 253 103/ul Normal 150-450 [facility] [place] [facility] Comment on above: Performed By: #### C BC #### [facility] [id number] Adrianna Caldera RBC 4.16 106/ul Critically low 4.20-5.40 [facility] Comment on above: Performed By: #### C BC #### [facility] [address] [address] [address] Adrianna Caldera WBC 11.6 103/ul Critically high 4.0-11.0 [facility] Comment on above: Performed By: #### C BC #### [facility] [address] [address] [address] Adrianna Caldera CULTURE URINEon 06-05-2022 CULTURE URINE Culture Observations: LIGHT GROWTH OF MIXED GENITAL JIGAR. NO POTENTIAL PATHOGENS SEEN. Normal [facility] [place] [facility] Comment on above: Performed By: #### U RCX ####[facility] [address] [address]Dr. Adrianna Caldera GLYCOHEMOGLOBIN A1Con 2022 ADA RECOMMENDATION SEE BELOW Normal [facility] Comment on above: Result Comment: ADA RECOMMENDED LIMIT 4.0 - 6.0 ADA THERAPEUTIC TARGET < 7.0 ACTION SUGGESTED > 7.0 Performed By: #### P REGQNT #### [facility] [address] [address] [address] Adrianna Caldera Glucose [Mass/Vol] 105 mg/dL Normal [facility] Comment on above: Performed By: #### P REGQNT #### [facility] [address] [address] [address] Adrianna Caldera HbA1c (Bld) [Mass fraction] 5.3 % Normal 4.5-6.2 [facility] [place] [facility] Comment on above: Performed By: #### P REGQNT #### [facility] [address] [address] [address] Adrianna Caldera TYPE AND SCREENon 06-05-2022 TYPE AND SCREEN Negative Normal [facility] Comment on above: Performed By: #### T NS ####[facility] [id number] [place], [place] [address]IoDr. Adrianna Caldera US PREG <14 WKSon 05-27-2022 [...] GOVIND JOHNSTON Date: 2022-05-26 22:31 Normal [facility] CBC AUTO DIFFon 05-26-2022 BASO # 0.1 103/ul Normal 0.0-0.1 [facility] [place] [facility] Comment on above: Performed By: #### U ACSIND #### [facility] [address] [place], [place] [address] Dr. Adrianna Caldera Basophils/100 WBC (Bld) 0.5 % Normal 0.2-2.0 T [facility] Comment on above: Performed By: #### U ACSIND #### [facility] [address] [address] [address] Adrianna Caldera EO # 0.1 103/ul Normal 0.0-0.7 [facility] [place] [facility] Comment on above: Performed By: #### U ACSIND #### [facility] [address] [address] [address] Adrianna Caldera Eosinophils/100 WBC (Bld) 0.5 % Critically low 0.9-7.0 [facility] [place] [facility] Comment on above: Performed By: #### U ACSIND #### [facility] [address] [address] [address] Adrianna Caldera Erythrocyte distribution width (RBC) [Ratio] 11.9 % Normal 11.0-15.0 [facility] [place] [facility] Comment on above: Performed By: #### U ACSIND #### [facility] [address] [place] [address] Dr. Adrianna Caldera Hematocrit (Bld) [Volume fraction] 37.5 % Normal 36.0-48.0 [facility] [place] [facility] Comment on above: Performed By: #### U ACSIND #### [facility] [address] [place] [address] Dr. Adrianna Caldera Hemoglobin (Bld) [Mass/Vol] 12.8 g/dL Normal 12.0-16.0 [facility] [place] [facility] Comment on above: Performed By: #### U ACSIND #### [facility] [address] [place] [address] Dr. Adrianna Caldera IG # 0.04 10e3/ul Critically high 0.00-0.03 [facility] Comment on above: Performed By: #### U ACSIND #### [facility] [address] [address] [address] Adrianna Caldera IG % 0.4 % Normal 0.0-0.5 [facility] [place] [facility] Comment on above: Performed By: #### U ACSIND #### [facility] [address] [address] [address] Adrianna Caldera LYMPH # 3.0 103/ul Normal 1.2-3.8 [facility] Comment on above: Performed By: #### U ACSIND #### [facility] [address] [address] [address] Adrianna Caldera Lymphocytes/100 WBC (Bld) 27.0 % Normal 20.5-60.0 [facility] [place] [facility] Comment on above: Performed By: #### U ACSIND #### [facility] [address] [address] [address] Adrianna Caldera MANUAL DIFF REQ NO Normal [facility] Comment on above: Performed By: #### U ACSIND #### [facility] [address] [address] [address] Adrianna Caldera MCH (RBC) [Entitic mass] 29.8 pg Normal 26.7-34.0 [facility] [place] [facility] Comment on above: Performed By: #### U ACSIND #### [facility] [address] [place] [address] Dr. Adrianna Caldera MCHC (RBC) [Mass/Vol] 34.1 g/dL Normal 29.9-35.2 [facility] [place] [facility] Comment on above: Performed By: #### U ACSIND #### [facility] [address] [place] [address] Dr. Adrianna Caldera MCV (RBC) [Entitic vol] 87.4 fL Normal 81.0-99.0 [facility] Comment on above: Performed By: #### U ACSIND #### [facility] [address] [place] [address] Dr. Adrianna Caldera MONO # 0.7 103/ul Normal 0.3-0.8 [facility] [place] [facility] Comment on above: Performed By: #### U ACSIND #### [facility] [address] [place] [address] Dr. Adrianna Caldera Monocytes/100 WBC (Bld) 6.3 % Normal 1.7-12.0 [facility] Comment on above: Performed By: #### U ACSIND #### [facility] [address] [address] [address] Adrianna Caldera NEUT # 7.2 103/ul Critically high 1.4-6.[address] [facility] Comment on above: Performed By: #### U ACSIND #### [facility] [address] [address] [address] Adrianna Caldera Neutrophils/100 WBC (Bld) 65.3 % Normal 43.0-75.0 [facility] [place] [facility] Comment on above: Performed By: #### U ACSIND #### [facility] [address] [address] [address] Adrianna Caldera Platelet mean volume (Bld) [Entitic vol] 10.3 fL Normal 9.5-13.5 [facility] [place] [facility] Comment on above: Performed By: #### U ACSIND #### [facility] [address] [address] [address] Adrianna Caldera PLT 316 103/ul Normal 150-450 [facility] [place] [facility] Comment on above: Performed By: #### U ACSIND #### [facility] [address] [place] [address] Dr. Adrianna Caldera RBC 4.29 106/ul Normal 4.20-5.40 [facility] [place] [facility] Comment on above: Performed By: #### U ACSIND #### [facility] [address] [address] [address] Adrianna Caldera WBC 11.0 103/ul Normal 4.0-11.0 [facility] [place] [facility] Comment on above: Performed By: #### U ACSIND #### [facility] [address] [place] [address] ABD/PELV W CONon [...] ISIDRO AVILA Date: 2022-05-26 19:39 Normal [facility]30 SARS-CoV-2 (COVID-19) RNA ALEKSANDER+probe Ql (Unsp spec) Not detected Normal NOT DETECTED [facility] Comment on above: Result Comment: When diagnostic [...] for this test is supported by the [place] of [employer] and Human Service's declaration that [...] used). Performed By: #### U ACSIND #### [facility] [address] [place] [address] Dr. Adrianna Caldera ER URINE PROFILEon 2 Bilirubin Ql (U) Negative Normal NEGATIVE [facility] Comment on above: Performed By: #### P REGQNT #### [facility] [address] [address] [address] Adrianna Caldera Clarity (U) CLEAR Normal CLEAR [facility] Comment on above: Performed By: #### P REGQNT #### [facility] [address] [address] [address] Adrianna Caldera Color (U) YELLOW Normal YELLOW [facility] [place] [facility] Comment on above: Performed By: #### P REGQNT #### [facility] [address] [place] [address] Dr. Adrianna LINARES A micrscopic examination will be performed if indicated. Normal [facility] Comment on above: Performed By: #### P REGQNT #### [facility] [address] [place] [address] Dr. Adrianna Caldera Glucose Ql (U) Negative Normal NEGATIVE [facility] Comment on above: Performed By: #### P REGQNT #### [facility] [address] [place] [address] Dr. Adrianna Caldera Hemoglobin Ql (U) Negative Normal NEGATIVE [facility] Comment on above: Performed By: #### P REGQNT #### [facility] [address] [place] [address] Dr. Adrianna Caldera Ketones Ql (U) 15 mg/dl Abnormal NEGATIVE [facility] Comment on above: Performed By: #### P REGQNT #### [facility] [address] [place] [address] Dr. Adrianna Caldera LEUKOCYTES Negative Normal NEGATIVE [facility] [place] [facility] Comment on above: Performed By: #### P REGQNT #### [facility] [address] [place] [address] Dr. Adrianna Caldera Nitrite Ql (U) Negative Normal NEGATIVE [facility] Comment on above: Performed By: #### P REGQNT #### [facility] [address] [place] [address] Dr. Adrianna Caldera pH (U) 7.5 [pH] Normal 5-9 [facility] [place] [facility] Comment on above: Performed By: #### P REGQNT #### [facility] [address] [place] [address] Dr. Adrianna Caldera SPEC GRAVITY 1.020 Normal 1.005-<=1.0 25 [facility] [place] [facility] Comment on above: Performed By: #### P REGQNT #### [facility] [address] [address] [address] Adrianna Caldera UA PROTEIN Negative Normal NEGATIVE/ TRACE [facility] Comment on above: Performed By: #### P REGQNT #### [facility] [address] [address] [address] Adrianna Caldera UR MICRO IND NOT INDICATED Normal [facility] Comment on above: Performed By: #### P REGQNT #### [facility] [facility] [address] [address] [address] Adrianna Caldera Urobilinogen Qn (U) 0.2 {Micheal'U}/dL Normal 0.2 - 1. 0 [facility] Comment on above: Performed By: #### P REGQNT #### [facility] [address] [place] [address] Dr. Adrianna Caldera LIPASEon 05-26-2022 Lipase [Catalytic activity/Vol] 116.0 U/L Normal 73.0-393.0 [facility] Comment on above: Performed By: #### L IPA, CMP #### [facility] [address] [place] [address] Dr. Adrianna Caldera PROF 14(COMP METB)on 022 Albumin [Mass/Vol] 3.6 g/dL Normal 3.4-5.0 [facility] Comment on above: Performed By: #### L IPA, CMP #### [facility] [address] [place] [address] Dr. Adrianna Caldera Albumin/Globulin [Mass ratio] 0.9 {ratio} Normal [facility] Comment on above: Performed By: #### L IPA, CMP #### [facility] [address] [place] [address] Dr. Adrianna Caldera ALP [Catalytic activity/Vol] 57 U/L Normal 46-116 [facility] Comment on above: Performed By: #### L IPA, CMP #### [facility] [address] [place] [address] Dr. Adrianna Caldera ALT [Catalytic activity/Vol] 13 U/L Critically low 14-59 [facility] Comment on above: Performed By: #### L IPA, CMP #### [facility] [address] [address] [address] Adrianna Caldera Anion gap [Moles/Vol] 10.6 mmol/L Normal Th [facility] Comment on above: Performed By: #### L IPA, CMP #### [facility] [address] [address] [address] Adrianna Caldera AST [Catalytic activity/Vol] 12 U/L Critically low 15-37 [facility] Comment on above: Performed By: #### L IPA, CMP #### [facility] [address] [address] [address] Adrianna Caldera Bilirubin [Mass/Vol] 0.2 mg/dL Normal 0.2-1.0 [facility] Comment on above: Performed By: #### L IPA, CMP #### [facility] [address] [address] [address] Adrianna Caldera Calcium [Mass/Vol] 8.9 mg/dL Normal 8.5-10.1 [facility] Comment on above: Performed By: #### L IPA, CMP #### [facility] [address] [address] [address] Adrianna Caldera Chloride [Moles/Vol] 102 mmol/L Normal 98-107 [facility] Comment on above: Performed By: #### L IPA, CMP #### [facility] [address] [address] [address] Adrianna Caldera CO2 [Moles/Vol] 26.0 mmol/L Normal 21.0-32.0 [facility] Comment on above: Performed By: #### L IPA, CMP #### [facility] [address] [address] [address] Adrianna Caldera Creatinine [Mass/Vol] 0.61 mg/dL Normal 0.55-1.02 [facility] Comment on above: Performed By: #### L IPA, CMP #### [facility] [address] [address] [address] Adrianna Caldera EGFR-AF WELSH >60 Normal >=60 [facility] Comment on above: Performed By: #### L IPA, CMP #### [facility] [address] [address] [address] Adrianna Caldera EGFR-NON AF WELSH >60 Normal >=60 [facility] Comment on above: Performed By: #### L IPA, CMP #### [facility] [address] [address] [address] Adrianna Caldera Globulin (S) [Mass/Vol] 3.8 g/dL Normal T [facility] Comment on above: Performed By: #### L IPA, CMP #### [facility] [address] [address] [address] Adrianna Caldera Glucose [Mass/Vol] 82 mg/dL Normal 74-106 [facility] Comment on above: Performed By: #### L IPA, CMP #### [facility] [address] [address] [address] Adrianna Caldera Potassium [Moles/Vol] 3.6 mmol/L Normal 3.5-5.1 [facility] Comment on above: Performed By: #### L IPA, CMP #### [facility] [address] [address] [address] Adrianna Caldera Protein [Mass/Vol] 7.4 g/dL Normal 6.4-8.2 [facility] Comment on above: Performed By: #### L IPA, CMP #### [facility] [address] [address] [address] Adrianna Caldera Sodium [Moles/Vol] 135 mmol/L Critically low 136-145 [facility] Comment on above: Performed By: #### L IPA, CMP #### [facility] [address] [address] [address] Adrianna Caldera Urea nitrogen [Mass/Vol] 9.0 mg/dL Normal 7.0-18.0 [facility] Comment on above: Performed By: #### L IPA, CMP #### [facility] [address] [address] [address] Adrianna Caldera Urea nitrogen/Creatinine [Mass ratio] 14.8 mg/mg Normal [facility] Comment on above: Performed By: #### L IPA, [facility] #### [facility] [address] [place] [address] Dr. Adrianna Caldera No Panel Informationon 05-17 Body mass index (BMI) [Percentile] Per age and sex 0.1 {percentile} Invalid Interpretation Code [employer] [id number] Per age and sex 0.1 {percentile} Invalid Interpretation Code [employer] US PREG TVon 05-01-2022 US PREG TV [...] Single live intrauterine . Electronically authenticated by: AKROL SIDDIQUI Date: 2022-04-30 22:06 Normal [facility] US PREG TVon 04-08-2022 US [...] by: KAROL SIDDIQUI Date: 2022-04-08 17:08 Normal [facility] PELVIS TRANSVAGon 022 US PELVIS TRANSVAG [...] CINDY NOGUEIRA Date: 2022-03-22 22:47 Normal [facility] CBC AUTO DIFFon 03-22-2022 BASO # 0.1 103/ul Normal 0.0-0.1 [facility] Comment on above: Performed By: #### U ACSIND #### [facility] [address] [address] [address] Adrianna Caldera Basophils/100 WBC (Bld) 0.5 % Normal 0.2-2.0 [facility] Comment on above: Performed By: #### U ACSIND #### [facility] [address] [address] [address] Adrianna Caldera EO # 0.1 103/ul Normal 0.0-0.7 [facility] Comment on above: Performed By: #### U ACSIND #### [facility] [address] [address] [address] Adrianna Caldera Eosinophils/100 WBC (Bld) 0.6 % Critically low 0.9-7.0 [facility] Comment on above: Performed By: #### U ACSIND #### [facility] [address] [address] [address] Adrianna Caldera Erythrocyte distribution width (RBC) [Ratio] 12.6 % Normal 11.0-15.0 [facility] Comment on above: Performed By: #### U ACSIND #### [facility] [address] [address] [address] Adrianna Caldera Hematocrit (Bld) [Volume fraction] 40.0 % Normal 36.0-48.0 [facility] Comment on above: Performed By: #### U ACSIND #### [facility] [address] [place] [address] Dr. Adrianna Caldera Hemoglobin (Bld) [Mass/Vol] 13.6 g/dL Normal 12.0-16.0 [facility] Comment on above: Performed By: #### U ACSIND #### [facility] [address] [address] [address] Adrianna Caldera IG # 0.03 10e3/ul Normal 0.00-0.03 [facility] Comment on above: Performed By: #### U ACSIND #### [facility] [address] [place] [address] Dr. Adrianna Caldera IG % 0.3 % Normal 0.0-0.5 [facility] Comment on above: Performed By: #### U ACSIND #### [facility] [address] [place] [address] Dr. Adrianna Caldera LYMPH # 4.4 103/ul Critically high 1.2-3.[address] [facility] Comment on above: Performed By: #### U ACSIND #### [facility] [address] [place] [address] Dr. Adrianna Caldera Lymphocytes/100 WBC (Bld) 38.4 % Normal 20.5-60.0 [facility] Comment on above: Performed By: #### U ACSIND #### [facility] [address] [place] [address] Dr. Adrianna Cadlera MANUAL DIFF REQ NO Normal [facility] Comment on above: Performed By: #### U ACSIND #### [facility] [address] [place] [address] Dr. Adrianna Caldera MCH (RBC) [Entitic mass] 30.2 pg Normal 26.7-34.0 [facility] Comment on above: Performed By: #### U ACSIND #### [facility] [address] [address] [address] Adrianna Caldera MCHC (RBC) [Mass/Vol] 34.0 g/dL Normal 29.9-35.2 [facility] Comment on above: Performed By: #### U ACSIND #### [facility] [address] [address] [address] Adrianna Caldera MCV (RBC) [Entitic vol] 88.9 fL Normal 81.0-99.0 [facility] Comment on above: Performed By: #### U ACSIND #### [facility] [address] [place] [address] Dr. Adrianna Caldera MONO # 0.7 103/ul Normal 0.3-0.8 [facility] Comment on above: Performed By: #### U ACSIND #### [facility] [address] [place] [address] Dr. Adrianna Caldera Monocytes/100 WBC (Bld) 6.2 % Normal 1.7-12.0 [facility] Comment on above: Performed By: #### U ACSIND #### [facility] [address] [place] [address] Dr. Adrianna Caldera NEUT # 6.1 103/ul Normal 1.4-6.5 [facility] Comment on above: Performed By: #### U ACSIND #### [facility] [address] [place] [address] Dr. Adrianna Caldera Neutrophils/100 WBC (Bld) 54.0 % Normal 43.0-75.0 [facility] Comment on above: Performed By: #### U ACSIND #### [facility] [address] [place] [address] Dr. Adrianna Caldera Platelet mean volume (Bld) [Entitic vol] 10.9 fL Normal 9.5-13.5 [facility] Comment on above: Performed By: #### U ACSIND #### [facility] [address] [place] [address] Dr. Adrianna Caldera PLT 277 103/ul Normal 150-450 [facility] Comment on above: Performed By: #### U ACSIND #### [facility] [address] [address] [address] Adrianna Caldera RBC 4.50 106/ul Normal 4.20-5.40 [facility] Comment on above: Performed By: #### U ACSIND #### [facility] [address] [address] [address] Adrianna Caldera WBC 11.3 103/ul Critically high 4.0-11.0 [facility] Comment on above: Performed By: #### U ACSIND #### [facility] [address] [address] [address] Adrianna Caldera ER URINE PROFILEon 2 Bilirubin Ql (U) Negative Normal NEGATIVE [facility] Comment on above: Performed By: #### P REGU, ERUR ####[facility] [address] [address]Dr. Adrianna Caldera Clarity (U) CLEAR Normal CLEAR [facility] Comment on above: Performed By: #### P REGU, ERUR ####[facility] [address] [address]Dr. Adrianna Caldera Color (U) LT. YELLOW Normal YELLOW [facility] Comment on above: Performed By: #### P REGU, ERUR ####[facility] [address] [address]Dr. Adrianna Caldera ERUAHD A micrscopic examination will be performed if indicated. Normal [facility] Comment on above: Performed By: #### P REGU, ERUR ####[facility] [address] [address]Dr. Adrianna Caldera Glucose Ql (U) Negative Normal NEGATIVE [facility] Comment on above: Performed By: #### P REGU, ERUR ####[facility] [address] [address]Dr. Adrianna Caldera Hemoglobin Ql (U) Negative Normal NEGATIVE [facility] Comment on above: Performed By: #### P REGU, ERUR ####[facility] [address] [place], [place] [address]Dr. Adrianna Caldera Ketones Ql (U) Negative Normal NEGATIVE [facility] Comment on above: Performed By: #### P REGU, ERUR ####[facility] [address] [address]Dr. Adrianna Caldera LEUKOCYTES Negative Normal NEGATIVE [facility] Comment on above: Performed By: #### P REGU, ERUR ####[facility] [address] [address]Dr. Adrianna Caldera Nitrite Ql (U) Negative Normal NEGATIVE [facility] Comment on above: Performed By: #### P REGU, ERUR ####[facility] [address] [address]Dr. Adrianna Caldera pH (U) 6.0 [pH] Normal 5-9 [facility] Comment on above: Performed By: #### P REGU, ERUR ####[facility] [address] [place], [place] [address]Dr. Adrianna Caldera SPEC GRAVITY <=1.005 Abnormal 1.005-<=1.0 25 [facility] Comment on above: Performed By: #### P REGU, ERUR ####[facility] [address] [place], [place] [address]Dr. Adrianna Caldera UA PROTEIN Negative Normal NEGATIVE/ TRACE [facility] Comment on above: Performed By: #### P REGU, ERUR ####[facility] [address] [place], [place] [address]Dr. Adrianna Caldera UR MICRO IND NOT INDICATED Normal [facility] Comment on above: Performed By: #### P REGU, ERUR ####[facility] [address] [address]Dr. Adrianna Caldera Urobilinogen Qn (U) 0.2 {Micheal'U}/dL Normal 0.2 - 1. 0 [facility] Comment on above: Performed By: #### P REGU, ERUR ####[facility] [address] [place], [place] [address]Dr. Adrianna Caldera PREG QUANT HCGon 03-22-2022 HCG QUANT 2 mIU/mL Normal [facility] Comment on above: Performed By: #### P REGQNT #### [facility] [address] [address] [address] Adrianna Caldera HCG RANGE SEE BELOW Normal [facility] Comment on above: Result Comment: 5-50 0.2-1 WEEK 50-500 1-2 WEEKS 100-5,000 2-3 WEEKS 500-10,000 3-4 WEEKS 1,000-50,000 4-5 WEEKS 10,000-100,000 5-6 WEEKS 15,000-200,000 6-8 WEEKS 10,000-100,000 2-3 MONTHS Performed By: #### P REGQNT #### [facility] [address] [address] [address] Adrianna Caldera URon 03-22-2022 , QUAL Negative Normal NEGATIVE [facility] Comment on above: Performed By: #### P REGU, ERUR ####[facility] [address] [address]Dr. Adrianna Caldera PROF CHEM 8 (BAS METB)on Anion gap [Moles/Vol] 10.9 mmol/L Normal [facility] Comment on above: Performed By: #### U ACSIND #### [facility] [address] [address] [address] Adrianna Caldera Calcium [Mass/Vol] 9.1 mg/dL Normal 8.5-10.1 [facility] Comment on above: Performed By: #### U ACSIND #### [facility] [address] [address] [address] Adrianna Caldera Chloride [Moles/Vol] 105 mmol/L Normal 98-107 [facility] Comment on above: Performed By: #### U ACSIND #### [facility] [address] [address] [address] Adrianna Caldera CO2 [Moles/Vol] 26.0 mmol/L Normal 21.0-32.0 [facility] Comment on above: Performed By: #### U ACSIND #### [facility] [address] [address] [address] Adrianna Caldera Creatinine [Mass/Vol] 0.98 mg/dL Normal 0.55-1.02 [facility] Comment on above: Performed By: #### U ACSIND #### [facility] [address] [address] [address] Adrianna Caldera EGFR-AF WELSH >60 Normal >=60 [facility] Comment on above: Performed By: #### U ACSIND #### [facility] [address] [address] [address] Adrianna Caldera EGFR-NON AF WELSH >60 Normal >=60 [facility] Comment on above: Performed By: #### U ACSIND #### [facility] [address] [address] [address] Adrianna Caldera Glucose [Mass/Vol] 87 mg/dL Normal 74-106 [facility] Comment on above: Performed By: #### U ACSIND #### [facility] [address] [address] [address] Adrianna Caldera Potassium [Moles/Vol] 3.9 mmol/L Normal 3.5-5.1 [facility] Comment on above: Performed By: #### U ACSIND #### [facility] [address] [address] [address] Adrianna Caldera Sodium [Moles/Vol] 138 mmol/L Normal 136-145 [facility] Comment on above: Performed By: #### U ACSIND #### [facility] [address] [address] [address] Adrianna Caldera Urea nitrogen [Mass/Vol] 11.0 mg/dL Normal 7.0-18.0 [facility] Comment on above: Performed By: #### U ACSIND #### [facility] [address] [address] [address] Adrianna Caldera Urea nitrogen/Creatinine [Mass ratio] 11.2 mg/mg Normal [facility] Comment on above: Performed By: #### U ACSIND #### [facility] [address] [address] [address] Adrianna Caldera PREG QUANT HCGon 03-03-2022 HCG QUANT 1 mIU/mL Normal [facility] Comment on above: Performed By: #### P REGQNT #### [facility] [address] [address] [address] Adrianna Caldera HCG RANGE SEE BELOW Normal [facility] Comment on above: Result Comment: 5-50 0.2-1 WEEK 50-500 1-2 WEEKS 100-5,000 2-3 WEEKS 500-10,000 3-4 WEEKS 1,000-50,000 4-5 WEEKS 10,000-100,000 5-6 WEEKS 15,000-200,000 6-8 WEEKS 10,000-100,000 2-3 MONTHS Performed By: #### P REGQNT #### [facility] [address] [address] [address] Adrianna Caldera Creatinine and Glomerular fi ltration rate.predicted panel (S/P/Bld)Ordered By: Tae Natarajan on 02-10-2022 Creatinine [Mass/Vol] 1.03 mg/dL 0.44-1.03 [facility] Estimated glomerular filtrat ion rate (GFR) non- AmericanOrdered By: Tae Natarajan on 02-10-2022 GFR/1.73 sq M.predicted among non-blacks MDRD (S/P/Bld) [Vol rate/Area] > 60 mL/Min [facility] HCG ( test) IA.rapi d Ql (U)Ordered By: Tae Natarajan on 02-10-2022 HCG ( test) Ql (U) Negative [facility] No Panel InformationOrdered By: Tae Natarajan on 02-10-2022 Estimated GFR () > 60 mL/Min [facility] Comment on above: GFR estimated refere nce range: According to KDOQI guidelines, <60 ml/min/1.73m2 is sufficient to diagnose a patient with chronic kidney disease. Pharmacy Creatinine Clearance (Chem 88.89 [facility] Serum or plasma urea nitroge n measurement (mass/volume)Ordered By: Tae Natarajan on 02-10-2022 Urea nitrogen [Mass/Vol] 9 mg/dL 02-19 [facility] PREG QUANT HCGon 12-04-2021 HCG QUANT <1 Normal [facility] Comment on above: Performed By: #### P REGQNT #### [facility] [address] [place], [place] [address] Dr. Adrianna Caldera HCG RANGE SEE BELOW Normal [facility] Comment on above: Result Comment: 5-50 0-1 WEEK 40-300 1-2 WEEKS 100-1,000 2-3 WEEKS 500-6,000 3-4 WEEKS 5,000-200,000 1-2 MONTHS 10,000-100,000 2-3 MONTHS 3,000-50,000 2ND TRIMESTER 1,000-50,000 3RD TRIMESTER Performed By: #### P REGQNT #### [facility] [address] [address] [address] Adrianna Caldera CBC AUTO DIFFon 11-14-2021 BASO # 0.1 103/ul Normal 0.0-0.1 [facility] Comment on above: Performed By: #### C BC ####[facility] [address] [address]Dr. Adrianna Caldera Basophils/100 WBC (Bld) 0.5 % Normal 0.2-2.0 [facility] Comment on above: Performed By: #### C BC ####[facility] [address] [address]Dr. Adrianna Caldera EO # 0.1 103/ul Normal 0.0-0.7 [facility] Comment on above: Performed By: #### C BC ####[facility] [address] [address]Dr. Adrianna Caldera Eosinophils/100 WBC (Bld) 0.8 % Critically low 0.9-7.0 [facility] Comment on above: Performed By: #### C BC ####[facility] [address] [id number]. Adrianna Caldera Erythrocyte distribution width (RBC) [Ratio] 13.0 % Normal 11.0-15.0 [facility] Comment on above: Performed By: #### C BC ####[facility] [address] [address]Dr. Adrianna Caldera Hematocrit (Bld) [Volume fraction] 38.5 % Normal 36.0-48.0 [facility] Comment on above: Performed By: #### C BC ####[facility] [address] [address]Dr. Adrianna Caldera Hemoglobin (Bld) [Mass/Vol] 12.9 g/dL Normal 12.0-16.0 [facility] Comment on above: Performed By: #### C BC ####[facility] [address] [address]Dr. Adrianna Caldera IG # 0.03 10e3/ul Normal 0.00-0.03 [facility] Comment on above: Performed By: #### C BC ####[facility] [address] [place], [place] [address]Dr. Adrianna Werner IG % 0.3 % Normal 0.0-0.5 [facility] Comment on above: Performed By: #### C BC ####[facility] [address] [place], [place] [address]Dr. Adrianna Werner LYMPH # 2.8 103/ul Normal 1.2-3.8 [facility] Comment on above: Performed By: #### C BC ####[facility] [address] [place], [place] [address]DrAung Adrianna Werner Lymphocytes/100 WBC (Bld) 27.4 % Normal 20.5-60.0 [facility] Comment on above: Performed By: #### C BC ####[facility] [address] [place], [place] [address]Dr. Adrianna Werner MANUAL DIFF REQ NO Normal [facility] Comment on above: Performed By: #### C BC ####[facility] [address] [place], [place] [address]Dr. Adrianna Werner MCH (RBC) [Entitic mass] 29.7 pg Normal 26.7-34.0 [facility] Comment on above: Performed By: #### C BC ####[facility] [address] [place], [place] [address]Dr. Adrianna Werner MCHC (RBC) [Mass/Vol] 33.5 g/dL Normal 29.9-35.2 [facility] Comment on above: Performed By: #### C BC ####[facility] [address] [address]DrAung Caldera MCV (RBC) [Entitic vol] 88.7 fL Normal 81.0-99.0 [facility] Comment on above: Performed By: #### C BC ####[facility] [address] [place], [place] [address]DrAung Caldera MONO # 0.7 103/ul Normal 0.3-0.8 [facility] Comment on above: Performed By: #### C BC ####[facility] [address] [place], [place] [address]DrAung Caldera Monocytes/100 WBC (Bld) 6.5 % Normal 1.7-12.0 [facility] Comment on above: Performed By: #### C BC ####[facility] [address] [place], [place] [address]DrAung Caldera NEUT # 6.5 103/ul Normal 1.4-6.5 [facility] Comment on above: Performed By: #### C BC ####[facility] [address] [place], [place] [address]DrAung Caldera Neutrophils/100 WBC (Bld) 64.5 % Normal 43.0-75.0 [facility] Comment on above: Performed By: #### C BC ####[facility] [address] [place], [place] [address]DrAung Caldera Platelet mean volume (Bld) [Entitic vol] 10.4 fL Normal 9.5-13.5 [facility] Comment on above: Performed By: #### C BC ####[facility] [address] [place], [place] [address]DrAung Caldera PLT 324 103/ul Normal 150-450 [facility] Comment on above: Performed By: #### C BC ####[facility] [address] [place], [place] [address]DrAung Caldera RBC 4.34 106/ul Normal 4.20-5.40 [facility] Comment on above: Performed By: #### C BC ####[facility] [address] [address]Dr. Adrianna Caldera WBC 10.1 103/ul Normal 4.0-11.0 [facility] [place] [facility] Comment on above: Performed By: #### C BC ####[facility] [address] [address]Dr. Jemimabenito Werner ER URINE PROFILEon 2 Bilirubin Ql (U) Negative Normal NEGATIVE [facility] Comment on above: Performed By: #### E RUR, PREGU, UMICRO ####[facility] [address] [place], [place] [address]Dr. Jemimabenito Caldera Clarity (U) CLEAR Normal CLEAR [facility] Comment on above: Performed By: #### E RUR, PREGU, UMICRO ####[facility] [address] [place], [place] [address]Dr. Jemimabenito Werner Color (U) LT. YELLOW Normal YELLOW [facility] Comment on above: Performed By: #### E RUR, PREGU, UMICRO ####[facility] [address] [place], [place] [address]Dr. Adrianna Caldera ERUAHD A micrscopic examination will be performed if indicated. Normal [facility] Comment on above: Performed By: #### E RUR, PREGU, UMICRO ####[facility] [address] [place], [place] [address]Dr. Adrianna Caldera Glucose Ql (U) Negative Normal NEGATIVE [facility] Comment on above: Performed By: #### E RUR, PREGU, UMICRO ####[facility] [address] [place], [place] [address]Dr. Adrianna Caldera Hemoglobin Ql (U) LARGE Abnormal NEGATIVE The [facility] Comment on above: Performed By: #### E RUR, PREGU, UMICRO ####[facility] [address] [place], [place] [address]Dr. Adrianna Caldera Ketones Ql (U) Negative Normal NEGATIVE [facility] Comment on above: Performed By: #### E RUR, PREGU, UMICRO ####[facility] [address] [address]Dr. Adrianna Caldera LEUKOCYTES Negative Normal NEGATIVE [facility] Comment on above: Performed By: #### E RUR, PREGU, UMICRO ####[facility] [address] [address]Dr. Adrianna Caldera Nitrite Ql (U) Negative Normal NEGATIVE [facility] Comment on above: Performed By: #### E RUR, PREGU, UMICRO ####[facility] [address] [address]Dr. Adrianna Caldera pH (U) 6.5 [pH] Normal 5-9 [facility] Comment on above: Performed By: #### E RUR, PREGU, UMICRO ####[facility] [address] [place], [place] [address]Dr. Adrianna Caldera SPEC GRAVITY 1.015 Normal 1.005-<=1.[address] [place] [address] Comment on above: Performed By: #### Rojelio RUR, PREGU, UMICRO ####[facility] [address] [place], [place] [address]Dr. Adrianna Caldera UA PROTEIN Negative Normal NEGATIVE/ TRACE [facility] Comment on above: Performed By: #### E RUR, PREGU, UMICRO ####[facility] [address] [address]Dr. Adrianna Caldera UR MICRO IND INDICATED Normal [facility] Comment on above: Performed By: #### E RUR, PREGU, UMICRO ####[facility] [address] [place], [place] [address]Dr. Adrianna Caldera Urobilinogen Qn (U) 0.2 {Micheal'U}/dL Normal 0.2 - 1. 0 [facility] [place] [facility] Comment on above: Performed By: #### E RUR, PREGU, UMICRO ####[facility] [address] [address]Dr. Adrianna Caldera URon 06-18-2022 , QUAL Negative Normal NEGATIVE The [facility] Comment on above: Performed By: #### E RUR, PREGU, UMICRO ####[facility] [address] [place], [place] [address]SgDr. Adrianna Caldera PROF CHEM 8 (BAS METB)on Anion gap [Moles/Vol] 13.5 mmol/L Normal Th [facility] Comment on above: Performed By: #### U ACSIND #### [facility] [address] [address] [address] Adrianna Caldera Calcium [Mass/Vol] 8.7 mg/dL Normal 8.5-10.1 [facility] Comment on above: Performed By: #### U ACSIND #### [facility] [address] [address] [address] Adrianna Caldera Chloride [Moles/Vol] 102 mmol/L Normal 98-107 [facility] [place] [facility] Comment on above: Performed By: #### U ACSIND #### [facility] [address] [address] [address] Adrianna Caldera CO2 [Moles/Vol] 27.3 mmol/L Normal 21.0-32.0 [facility] Comment on above: Performed By: #### U ACSIND #### [facility] [address] [address] [address] Adrianna Caldera Creatinine [Mass/Vol] 0.85 mg/dL Normal 0.55-1.02 [facility] [place] [facility] Comment on above: Performed By: #### U ACSIND #### [facility] [address] [address] [address] Adrianna Caldera EGFR-AF WELSH >60 Normal >=60 [facility] Comment on above: Performed By: #### U ACSIND #### [facility] [address] [address] [address] Adrianna aCldera EGFR-NON AF WELSH >60 Normal >=60 [facility] [place] [facility] Comment on above: Performed By: #### U ACSIND #### [facility] [address] [address] [address] Adrianna Caldera Glucose [Mass/Vol] 104 mg/dL Normal 74-106 [facility] Comment on above: Performed By: #### U ACSIND #### [facility] [address] [address] [address] Adrianna Caldera Potassium [Moles/Vol] 3.8 mmol/L Normal 3.5-5.1 [facility] [place] [facility] Comment on above: Performed By: #### U ACSIND #### [facility] [address] [address] [address] Adrianna Caldera Sodium [Moles/Vol] 139 mmol/L Normal 136-145 [facility] Comment on above: Performed By: #### U ACSIND #### [facility] [address] [address] [address] Adrianna Caldera Urea nitrogen [Mass/Vol] 8.0 mg/dL Normal 7.0-18.0 [facility] [place] [facility] Comment on above: Performed By: #### U ACSIND #### [facility] [address] [address] [address] Adrianna Caldera Urea nitrogen/Creatinine [Mass ratio] 9.4 mg/mg Normal [facility] [place] [facility] Comment on above: Performed By: #### U ACSIND #### [facility] [address] [address] [address] Adrianna Caldera URINE MICROSCOPIC ONLYon BACTERIA NONE SEEN Normal NONE SEEN [facility] [place] [facility] Comment on above: Performed By: #### E RUJOHN Ghosh UMICRO ####[facility] [address] [address]Dr. Adrianna Caldera Bacteria identified Cx Nom (U) NOT INDICATED Normal [facility] Comment on above: Performed By: #### E HECTOR MONDRAGONU UMICRO ####[facility] [address] [id number]. Adrianna Caldera CAST NONE SEEN Normal NONE SEEN [facility] [place] [facility] Comment on above: Performed By: #### E RUR PREGU UMICRO ####[facility] [address] [address]Dr. Adrianna Caldera Crystals LM Nom (Urine sed) NONE SEEN Normal NONE SEEN [facility] Comment on above: Performed By: #### JOHN HAYNES UMICRO ####[facility] [address] [place], [place] [address]Tg. Adrianna Werner Epithelial cells LM Ql (Urine sed) RARE Normal NONE SEEN /RARE [facility] Comment on above: Performed By: #### Rojelio RUHECTOR GhoshU UMICRO ####[facility] [address] [place], [place] [address]Hc. Jemimabenito Caldera MUCOUS NONE SEEN Normal NONE SEEN [facility] Comment on above: Performed By: #### JOHN HAYNES UMICRO ####[facility] [address] [place], [place] [address]He. Jemimabenito Caldera RBC 10-20 Abnormal 0-2 [facility] Comment on above: Performed By: #### JOHN HAYNES UMICRO ####[facility] [address] [place], [place] [address]Wr. Jemimabenito Caldera WBC 0-2 Abnormal NONE SEEN [facility] Comment on above: Performed By: #### JOHN HAYNES UMICRO ####[facility] [address] [place] [id number]. Adrianna Caldera HCG, Quantitative, on 10-12-2021 hCG Quant <1 <5 mIU/mL [facility] Comment on above: Non-preg premeno <=5 Postmeno <=8 Male <=3 If HCG results do not concur with clinical observations, additional testing to confirm results is recommended. Elevated results not associated with may be found in patients with other diseases such as tumors of the germ cells (testis, ovaries, etc.), bladder, pancreas, stomach, lungs, and liver. [facility] CBC with Auto Differentialon 10-11-2021 Absolute Eos # 0.08 [facility] th Absolute Immature Granulocyte <0.03 [facility] Absolute Lymph # 1.85 [facility] alth Absolute Wells [facility].56 [facility] Basophils (Bld) [#/Vol] 0.04 10*3/uL [facility] Basophils/100 WBC (Bld) 1 % 0 - 2 % M [facility] Eosinophils/100 WBC (Bld) 1 % 1 - 4 % [facility] Hematocrit (Bld) [Volume fraction] 38.9 % 36.3 - 47.1 % [facility] Hemoglobin.gastrointest inal spec 1 Ql (Stl) 12.7 g/dL 11.9 - 15.1 g/dL [facility] Immature granulocytes/100 WBC (Bld) 0 % 0 [facility] Lymphocytes/100 WBC (Bld) 29 % 24 - 43 % [facility] MCH (RBC) [Entitic mass] 29.7 pg 25.2 - 33.5 pg [facility] MCHC (RBC) [Mass/Vol] 32.6 g/dL 28.4 - 34.8 g/dL [facility] MCV (RBC) [Entitic vol] 90.9 fL 82.6 - 102.9 fL [facility] Monocytes/100 WBC (Bld) 9 % 3 - 12 % M [facility] NRBC Automated 0.0 0.0 per 100 WBC [facility] Platelet distribution width (Bld) [Ratio] 12.9 % 11.8 - 14.4 % [facility] Platelet mean volume (Bld) [Entitic vol] 10.3 fL 8.1 - 13.5 fL [facility] Platelets (Bld) [#/Vol] 351 10*3/uL [facility] RBC (Bld) [#/Vol] 4.28 10*6/uL 3.95 - 5.1 1 m/uL [facility] Segmented neutrophils/100 WBC (Bld) 60 % 36 - 65 % [facility] Segs Absolute 3.90 [facility] WBC (Bld) [#/Vol] 6.5 10*3/uL [facility] CT ABDOMEN PELVIS W IV CONTR [...] No hydronephrosis. Gallbladder is not remarkable. GI/Bowel: Xxqh-ad-uixgmjrv retained stool without bowel obstruction. No pericecal inflammatory changes. Appendix unremarkable. Pelvis: There is mild prominence endometrial canal 7 mm. This may related to phase of menstrual cycle. Please correlate exam findings and history. No suspicious adnexal mass. Bladder remarkable. Peritoneum/Retroperi toneum: Trace free fluid dependent pelvis. No free air. No suspicious adenopathy. Bones/Soft Tissues: No suspicious osseous lesion [facility] Ashutosh Rodriguez MD - 10/11/2021 EXAMINATION: CT [...] No hydronephrosis. Gallbladder is not remarkable. GI/Bowel: Kovb-yn-jonjghda retained stool without bowel obstruction. No pericecal [...] Negative acute inflammatory process or bowel obstruction. [employer] Phone: Radiology Study observation (narrative) [employer] Phone: CT ABDOMEN PELVIS W IV CONTR AST Additional Contrast? NoneOrdered By: Ashutosh Lyssa on 10-11-2021 [facility] Work Phone: Comprehensive Metabolic Pane l w/ Reflex to MGon 10-11-2021 Albumin [Mass/Vol] 4.3 g/dL 3.5 - 5.2 g/dL frents [facility] Albumin/Globulin [Mass ratio] 1.7 {ratio} [facility] ALP (Bld) [Catalytic activity/Vol] 73 U/L 35 - 104 U/L [facility] ALT [Catalytic activity/Vol] 21 U/L 5 - 33 U/L [facility] Anion gap [Moles/Vol] 7 mmol/L Low 9 - 17 mmol/L [facility] AST [Catalytic activity/Vol] 15 U/L <32 [facility] Bilirubin [Mass/Vol] 0.25 mg/dL Low 0.3 - 1 .2 mg/dL [facility] Calcium [Mass/Vol] 9.1 mg/dL 8.6 - 10. 4 mg/dL [facility] Chloride [Moles/Vol] 105 mmol/L 98 - 10 7 mmol/L [facility] CO2 [Moles/Vol] 26 mmol/L 20 - 31 mmol/L [facility] Creatinine [Mass/Vol] 0.75 mg/dL 0.50 - 0.90 mg/dL [facility] Free PSA/Total PSA [Mass fraction] 6.8 g/dL 6.4 - 8.3 g/dL [facility] GFR >60 >60 mL/min [facility] GFR Non- >60 >60 mL/min [facility] Glucose [Mass/Vol] 116 mg/dL High 70 - 99 mg/dL [facility] Interpretation and review of laboratory results Abnormal [facility] Potassium [Moles/Vol] 3.9 mmol/L 3.7 - 5.3 mmol/L [facility] Sodium [Moles/Vol] 138 mmol/L 135 - 144 mmol/L [facility] Urea nitrogen (BldV) [Mass/Vol] 9 mg/dL 6 - 20 mg/dL [facility] Urea nitrogen/Creatinine (Bld) [Mass ratio] 12 [facility] - Chemistry and C hemistry - challengeon 10-11-2021 GFR/1.73 sq M.predicted MDRD (S/P/Bld) [Vol rate/Area] [facility] Comment on above: Average GFR for 20-2 9 years old: 116 mL/min/1.73sq m Chronic Kidney Disease: <60 mL/min/1.73sq m Kidney failure: <15 mL/min/1.73sq m eGFR calculated using average adult body mass. Additional eGFR calculator available at: http://www.uMentioned/multiple_crcl_2012.htm Stage 1: Some kidney damage normal GFR Stage 2: Mild kidney damage GFR 60-89 Stage 3: Moderate kidney damage GFR 30-59 Stage 4: Severe kidney damage GFR 15-29 Stage 5: Severe kidney damage GFR <15 ESRD - chronic treatment by dialysis or transplant Lipaseon 10-11-2021 Lipase [Catalytic activity/Vol] 39 U/L 13 - 60 U/L [facility] Microscopic Urinalysison - [facility] Bacteria, UA TRACE Abnormal None [facility] Crystals, UA 2 TO 5 CALCIUM OXALATE Abnormal None /HPF [facility] Epithelial Cells UA 2 TO 5 [facility] Interpretation and review of laboratory results Abnormal [facility] RBC, UA 2 TO 5 [facility] WBC, UA 0 TO 2 [employer] No Panel Informationon 10-11 [facility] , Urineon Beta HCG ( test) Ql (U) Negative NEGATIVE [facility] Comment on above: Specimens with hCG l evels near the threshold of the test (25 mIU/mL) may give a negative or indeterminate result. In such cases, another test should be performed with a new specimen in 48-72 hours. If early is suspected clinically in this setting, correlation with quantitative serum b-hCG level is suggested. [employer] has confirmed the use of plasma for this test. This has not been cleared or approved by the U.S. Food and Drug Administration. The FDA has determined that such clearance is not necessary. [facility] Urinalysis with Reflex to Cu ltureon 10-11-2021 Bilirubin Urine Negative NEGATIVE [employer] a lt Color, UA Yellow Yellow [facility] Glucose, Ur Negative NEGATIVE [facility] Interpretation and review of laboratory results Abnormal [facility] Ketones Ql (U) Negative NEGATIVE [employer] [facility] th Leukocyte esterase Test strip Ql (U) Negative NEGATIVE [facility] Nitrite, Urine Negative NEGATIVE [facility] pH, UA 6.0 [facility] Protein, UA Negative NEGATIVE [facility] Specific [place], UA >1.030 High [facility] Turbidity UA Clear Clear [facility] Urine Hgb TRACE Abnormal NEGATIVE [facility] Urobilinogen, Urine Normal Normal [facility] PREG QUANT HCGon 10-09-2021 HCG QUANT <1 Normal [facility] Comment on above: Performed By: #### P REGQNT ####[facility] [address] [place], [place] [address]Lw. Adrianna Caldera HCG RANGE SEE BELOW Normal [facility] Comment on above: Result Comment: 5-50 0-1 WEEK 40-300 1-2 WEEKS 100-1,000 2-3 WEEKS 500-6,000 3-4 WEEKS 5,000-200,000 1-2 MONTHS 10,000-100,000 2-3 MONTHS 3,000-50,000 2ND TRIMESTER 1,000-50,000 3RD TRIMESTER Performed By: #### P REGQNT ####[facility] [address] [place], [place] [address]Ty. Adrianna Caldera CULTURE, URINE, ROUTINEon CULTURE, URINE, ROUTINE SEE NOTE Abnormal [facility] Comment on above: Result Comment: CULTURE, URINE, ROUTINE Micro Number: [id number] Test Status: Final Specimen Source: Urine Specimen [...] Performed By: #### 3 95 #### [facility] [address], [address] [place] [phone] Associate Chief Nurse: Javid Broussard MD XR CHEST PORTABLEon 03-16-20 20 No acute process. [facility] ONE XRAY VIEW OF THE CHEST 03/16/2020 3:33 pm COMPARISON: 07/13/2014 HISTORY: ORDERING SYSTEM PROVIDED HISTORY: cough, dyspnea TECHNOLOGIST PROVIDED HISTORY: cough, dyspnea FINDINGS: The lungs are without acute focal process. There is no effusion or pneumothorax. The cardiomediastinal silhouette is without acute process. The osseous structures are without acute process. [facility] [place], [place] Incoming Radiant Results From Cross[facility]/Vision Critical - 03/16/2020 3:43 PM EDT EXAMINATION: ONE XRAY VIEW OF THE CHEST 03/16/2020 3:33 pm COMPARISON: 07/13/2014 HISTORY: ORDERING SYSTEM PROVIDED HISTORY: cough, dyspnea TECHNOLOGIST PROVIDED HISTORY: cough, dyspnea FINDINGS: The lungs are without acute focal process. There is no effusion or pneumothorax. The cardiomediastinal silhouette is without acute process. The osseous structures are without acute process. IMPRESSION: No acute process. [place], [place] Urinalysis with Microscopico n 03-03-2020 Amorphous, UA 1+ Abnormal None [place], [place] Bacteria, UA NOT REPORTED None [place], [place] Bilirubin Urine Negative NEGATIVE [place] Casts UA NOT REPORTED /LPF [place], [place] Color, UA YELLO YELLOW [place] Crystals, UA NOT REPORTED None /HPF [place] Epithelial Cells UA None [place] Glucose, Ur Negative NEGATIVE [place] Interpretation and review of laboratory results Abnormal [place] Ketones Ql (U) Negative NEGATIVE [place] Leukocyte esterase Test strip Ql (U) Negative NEGATIVE [place] Mucus, UA NOT REPORTED None [place] Nitrite, Urine Negative NEGATIVE [place] Other Observations UA NOT REPORTED NOT REQ. M [place], [place] pH, UA 6.0 [place] Protein (U) [Mass/Vol] Negative NEGATIVE [place], [place] RBC (U) [#/Vol] None [place] Renal Epithelial, UA NOT REPORTED 0 /HPF [place] Specific [place], UA >1.030 High [place], [place] Trichomonas, UA NOT REPORTED None [place], [place] Turbidity UA CLOUDY Abnormal CLEAR [place] Urinalysis Comments NOT REPORTED [place] Urine Hgb TRACE Abnormal NEGATIVE [place] Urobilinogen, Urine Normal Normal [place] WBC, UA 0 TO 2 [place] Yeast, UA NOT REPORTED None [place] HEPATOBILIARY SCAN W EJEC TION FRACTIONon 10-12-2019 Cholesterol [Mass/Vol] No convincing scintigraphic evidence of acute or chronic cholecystitis. [place] EXAMINATION: NUCLEAR MEDICINE HEPATOBILIARY SCINTIGRAPHY (HIDA [...] 30-60 mins. Images were obtained in the [place] projection and regions of interest were drawn [...] range is based on a limited study. [facility], [place], pn Incoming Radiant Results From [facility]/Vision Critical - 10/12/2019 2:56 PM EDT EXAMINATION: NUCLEAR [...] 30-60 mins. Images were obtained in the [place] projection and regions of interest were drawn [...] scintigraphic evidence of acute or chronic cholecystitis. [facility]- [place], [place] HEPATOBILIARY SCAN W PHAR MACOLOGICAL [...] 30-60 mins. Images were obtained in the [place] projection and regions of interest were drawn [...] Niraj Covarrubias MD 10/12/19 Final result Normal [facility] H. pylori urease IDon 2019 H. pylori urease ID Specimen Description .TISSUE, [place] [id number] EXP 04/05/20 Direct Exam NEGATIVE Report Status FINAL 10/06/2019 Normal [facility] Comment on above: Performed By: #### H JOELLE #### [facility] [address] [place] [address] Pantograph Operator: Varun Vicente MD [facility] [address] [place] [id number] Pantograph Operator: Omar Segundo MD OPERATIVE REPORTon 0 OPERATIVE REPORT [address] [id number] OPERATIVE REPORT PATIENT NAME: LULÚ GAITAN : 1995 MED REC NO: [id number] ROOM: ACCOUNT NO: [id number] ADMIT DATE: 10/05/2019 PROVIDER: Toño Blanc Jr [...] satisfactory condition. TOÑO BLANC JR HJ/Susy_[email or web address]_I Doc#: [id number] CC: Lisseth Blanc Jr Normal [facility] POCT urine pregnancyon 10-04 Beta HCG ( test) Ql (U) Negative NEGATIVE [place] Comment on above: Specimens with hCG l evels near the threshold of the test (25 mIU/mL) may give a negative or indeterminate result. In such cases, another test should be performed with a new specimen in 48-72 hours. If early is suspected clinically in this setting, correlation with quantitative serum b-hCG level is suggested. [id number] 10-05-2019 SARS-CoV-2 Not Detected Normal Not Detected [facility] Comment on above: Result Comment: (NOT E) The [employer] RealTime SARS-CoV-2 assay is a real-time (rt) reverse transcriptase (RT) polymerase chain reaction (PCR) test intended for the Person[employer] system. The SARS-CoV-2 primer and probe sets are designed to detect RNA from SARS-CoV-2 in nasopharyngeal (RECORDS SUPERVISOR) and oropharyngeal (OP) swabs from patients with [...] The above 1 analytes were performed by [facility] [address] [place] [address] Performed By: #### C OVID #### [facility] [address] [place] [address] Pantograph Operator: Samson Martinez DO [facility] [address] [place] [address] Pantograph Operator: Omar Segundo MD [facility] [address] [place] [address] Pantograph Operator: Bill Jolly MD Surgical Pathologyon 020 Surgical [...] SURGICAL PATHOLOGY CONSULTATION Patient Name: LULÚ GAITAN [facility] Rec: [id number] Path Number: [id number] [facility] ANATOMIC PATHOLOGY [address] [place] [phone] [facility] Comment on above: Performed By: #### P PPVS #### [address] [id number] Pantograph Operator: Omar Segundo MD [id number] 10-03-2019 SARS-CoV-2,Rapid Normal [facility] Comment on above: Performed By: #### C OVID #### [facility] [address] [place], [place] [id number] Pantograph Operator: Samson Martinez DO [facility] [address] [place] [id number] Pantograph Operator: Omar Segundo MD [facility] [address] [place] [address] Pantograph Operator: Bill Jolly MD SARS-CoV-2 Normal [facility] Comment on above: Performed By: #### C OVID #### [facility] [address] [facility] [place] [address] Pantograph Operator: Samson Martinez DO [facility] [address] [place] [address] Pantograph Operator: Omar Segundo MD [facility] [address] [place] [address] Pantograph Operator: Bill Jolly MD SARS-CoV-2 Source .NASOPHARYNGEAL SWAB Normal [facility] Comment on above: Performed By: #### C OVID #### [facility] [address] [facility] [place] [address] Pantograph Operator: Samson Martinez DO [facility] [address] [place] [address] Pantograph Operator: Omar Segundo MD [facility] [address] [place] [address] Pantograph Operator: Bill Jolly MD XR ABDOMEN (KUB) (SINGLE AP VIEW)on 02-08-2019 Nonspecific nonobstructive bowel gas pattern. No definite calcified urinary tract stones are seen. [facility] ONE SUPINE XRAY VIEW(S) [...] nonobstructive bowel gas pattern. No unusual calcifications. [facility] James[facility] M[facility]pn Incoming Radiant Results From CrossChx/Pacs - 02/08/2019 4:29 PM EDT EXAMINATION: ONE [...] definite calcified urinary tract stones are seen. [place] Urinalysis with Microscopico n 02-06-2019 Amorphous, UA NOT REPORTED None [place] Bacteria, UA TRACE Abnormal None [place] Bilirubin Urine Negative NEGATIVE [place] Casts UA NOT REPORTED /LPF [place] Color, UA YELLOW YELLOW [place] Crystals UA NOT REPORTED None /HPF [place] Epithelial Cells UA 2 TO 5 [place] Glucose, Ur Negative NEGATIVE [place] Interpretation and review of laboratory results Abnormal [place] Ketones Ql (U) Negative NEGATIVE [place] Leukocyte esterase Test strip Ql (U) Negative NEGATIVE [place] Mucus, UA 1+ Abnormal None [place] Nitrite, Urine Negative NEGATIVE [place] Other Observations UA NOT REPORTED NOT REQ. M [place] pH, UA 7.0 [place] Protein (U) [Mass/Vol] Negative NEGATIVE [place], [place] RBC (U) [#/Vol] 0 TO 2 [place] Renal Epithelial, Urine NOT REPORTED 0 /HPF [place] Specific [place], UA 1.020 [place], [place] Trichomonas, UA NOT REPORTED None [facility] [place], [place] Turbidity UA CLEAR CLEAR [place] Urinalysis Comments NOT REPORTED [place], [place] Urine Hgb TRACE Abnormal NEGATIVE [place] Urobilinogen, Urine Normal Normal [place] WBC, UA 0 TO 2 [place] Yeast, UA NOT REPORTED None [place] - [place] Wet prep, genitalon 02-07-20 19 Direct Exam NO TRICHOMONAS SEEN [place] Direct Exam YEAST [place] Direct Exam CLUE CELLS SEEN Abnormal [place], [place] Interpretation and review of laboratory results Abnormal [place] Special Requests NOT REPORTED [place] Specimen Description .VAGINA [place] Vital Signs Date Time Vital Sign Value Performing Clinician Facility 07-07-2023 10:35-0500 Body height 165.1 cm Matthew Lemus DO Work Phone: [facility] 07-07-2023 10:35-0500 Body mass index (BMI) [Ratio] 25.61 kg/m2 Matthew Lemus DO Work Phone: [facility] 07-07-2023 10:35-0500 Body temperature 97.7 [degF] Matthew Lemus DO Work Phone: [facility] 07-07-2023 10:35-0500 Body weight 69.81 kg Matthew Lemus DO Work Phone: [facility] 07-07-2023 10:35-0500 Diastolic blood pressure 70 mm[Hg] Matthew Lemus DO Work Phone: [facility] 07-07-2023 10:35-0500 Heart rate 100 /min Matthew Lemus DO Work Phone: [facility] 07-07-2023 10:35-0500 SaO2% (BldA) [Mass fraction] 96 % Matthew Lemus DO Work Phone: [facility] 07-07-2023 10:35-0500 Systolic blood pressure 100 mm[Hg] Matthew Lemus Work Phone: [phone] [place] [address] 05-19-2023 15:36-0500 Diastolic blood pressure 59 mm[Hg] DO Matthew Miltons Work Phone: [facility] 05-19-2023 15:36-0500 Heart rate 95 /min DO Matthew Miltons Work Phone: [facility] 05-19-2023 15:36-0500 Respiratory rate 16 /min DO Matthew Miltons Work Phone: [facility] 05-19-2023 15:36-0500 SaO2% (BldA) [Mass fraction] 99 % DO Matthew Miltons Work Phone: [facility] 05-19-2023 15:36-0500 Systolic blood pressure 109 mm[Hg] DO Matthew Miltons Work Phone: [facility] 05-19-2023 12:39-0500 Body height 165.1 cm DO Matthew Lmeus Work Phone: [facility] 05-19-2023 12:39-0500 Body weight 70.76 kg DO Matthew Lemus Work Phone: [facility] 05-10-2023 11:11-0500 Diastolic blood pressure 78 mm[Hg] Rishi MARSHALL [facility] 05-10-2023 11:11-0500 Heart rate 72 /min Rishi MARSHALL [facility] 05-10-2023 11:11-0500 Systolic blood pressure 117 mm[Hg] Rishi MARSHALL [facility] 04-27-2023 13:30-0500 Body height 166.37 cm Imad Asaad Other [employer] Other 04-27-2023 13:30-0500 Body mass index (BMI) [Ratio] 25.71 kg/m2 Imad Asaad Other [employer] Other 04-27-2023 13:30-0500 Body weight 71.17 kg Imad Asaad Other [employer] Other 02-11-2023 18:20-0400 Body height 166.37 cm Sarah Aliceamond Other [employer] Other 02-11-2023 18:20-0400 Body mass index (BMI) [Ratio] 27.69 kg/m2 Sarah Monica Other [employer] Other 02-11-2023 18:20-0400 Body temperature 98.1 [degF] Sarah Monica Other [employer] Other 02-11-2023 18:20-0400 Body weight 76.66 kg Sarah Monica Other [employer] Other 02-11-2023 18:20-0400 Diastolic blood pressure 78 mm[Hg] Sarah Monica Other [employer] Other 02-11-2023 18:20-0400 Respiratory rate 18 /min Sarah Monica Other [employer] Other 02-11-2023 18:20-0400 SaO2% (BldA) [Mass fraction] 99 % Sarah Monica Other [employer] Other 02-11-2023 18:20-0400 Systolic blood pressure 116 mm[Hg] Sarah Monica Other [employer] Other 02-06-2023 07:30-0400 Body temperature 98.1 [degF] DO Matthew Lemus Work Phone: [facility] 02-06-2023 07:30-0400 Diastolic blood pressure 60 mm[Hg] DO Matthew Miltons Work Phone: [facility] 02-06-2023 07:30-0400 Heart rate 83 /min DO Matthew Miltons Work Phone: [facility] 02-06-2023 07:30-0400 Respiratory rate 18 /min DO Matthew Lemus Work Phone: [facility] 02-06-2023 07:30-0400 SaO2% (BldA) [Mass fraction] 97 % DO Matthew Lemus Work Phone: [facility] 02-06-2023 07:30-0400 Systolic blood pressure 102 mm[Hg] DO Matthew Lemus Work Phone: [facility] 02-03-2023 14:17-0400 Body height 165.1 cm DO Matthew Lemus Work Phone: [facility] 02-02-2023 23:53-0400 Body weight 74.15 kg DO Matthew Lemus Work Phone: [facility] 06-30-2022 23:12-0500 Diastolic blood pressure 56 mm[Hg] Courtney Hernandez MD Work Phone: [facility] 06-30-2022 23:12-0500 Heart rate 88 /min Courtney Hernandez MD Work Phone: [facility] 06-30-2022 23:12-0500 Respiratory rate 16 /min Courtney Hernandez MD Work Phone: [facility] 06-30-2022 23:12-0500 Systolic blood pressure 100 mm[Hg] Courtney Hernandez MD Work Phone: [facility] 06-30-2022 22:21-0500 Body height 165.1 cm Courtney Hernandez MD Work Phone: [facility] 06-30-2022 21:13-0500 SaO2% (BldA) [Mass fraction] 98 % Courtney Hernandez MD Work Phone: [facility] [employer] 06-30-2022 18:31-0500 Body mass index (BMI) [Ratio] 28.96 kg/m2 Courtney Hernandez MD Work Phone: [facility] [employer] 06-30-2022 18:31-0500 Body weight 78.93 kg Courtney Hernandze MD Work Phone: [facility] [employer] 06-30-2022 18:27-0500 Body temperature 98.4 [degF] Courtney Hernandez MD Work Phone: [facility] 06-17-2022 17:10-0500 Diastolic blood pressure 65 mm[Hg] Bridgette [employer] 06-17-2022 17:10-0500 Systolic blood pressure 114 mm[Hg] Bridgette GuillaumencEner1 06-17-2022 17:10-0500 Systolic blood pressure 110 mm[Hg] Bridgette Dejesushard [employer] 06-17-2022 17:00-0500 Body height 166.37 cm Bridgette Ortega [employer] [facility] 06-17-2022 17:00-0500 Body mass index (BMI) [Ratio] 28.43 kg/m2 Bridgette DejesusE[employer]1 06-17-2022 17:00-0500 Body surface area Derived from formula 1.91 m2 Bridgette Dejesushard [employer] [facility] 06-17-2022 17:00-0500 Body weight 78.7 kg Bridgette Ortega [employer] [facility] 06-17-2022 17:00-0500 Body weight 0.1 {percentile} Bridgette Debbie [employer] 06-17-2022 17:00-0500 Diastolic blood pressure 70 mm[Hg] Bridgette Ortega [employer] 06-17-2022 17:00-0500 Heart rate 72 /min Bridgette Ortega [employer] 06-17-2022 17:00-0500 Systolic blood pressure 118 mm[Hg] Bridgette DejesusE[employer]1 06-15-2022 17:35-0500 Body temperature 98.1 [degF] [employer] 06-15-2022 17:35-0500 Body weight 77.57 kg [employer] 06-15-2022 17:35-0500 Diastolic blood pressure 62 mm[Hg] [employer] 06-15-2022 17:35-0500 Heart rate 80 /min [employer] 06-15-2022 17:35-0500 Respiratory rate 16 /min [employer] 06-15-2022 17:35-0500 Systolic blood pressure 110 mm[Hg] [employer] 05-17-2022 11:45-0500 SaO2% (BldA) [Mass fraction] 98 % [employer] 05-17-2022 10:59-0500 Body height 166.37 cm [employer] 05-17-2022 10:59-0500 Body mass index (BMI) [Ratio] 28.19 kg/m2 [employer] 05-17-2022 10:59-0500 Body surface area Derived from formula 1.9 m2 [employer] 05-17-2022 10:59-0500 Body temperature 98.5 [degF] [employer] 05-17-2022 10:59-0500 Body weight 78.02 kg [employer] 05-17-2022 10:59-0500 Body weight 0.1 {percentile} [employer] 05-17-2022 10:59-0500 Diastolic blood pressure 60 mm[Hg] [employer] 05-17-2022 10:59-0500 Heart rate 90 /min [employer] 05-17-2022 10:59-0500 Respiratory rate 18 /min [employer] 05-17-2022 10:59-0500 Systolic blood pressure 112 mm[Hg] [employer] 02-10-2022 20:45-0400 Diastolic blood pressure 64 mm[Hg] DO Matthew Lemus Work Phone: [facility] 02-10-2022 20:45-0400 Heart rate 81 /min DO Matthew Miltons Work Phone: [facility] 02-10-2022 20:45-0400 Respiratory rate 16 /min DO Matthew Marlenyhas Work Phone: [facility] 02-10-2022 20:45-0400 SaO2% (BldA) [Mass fraction] 99 % DO Matthew Marlenyhas Work Phone: [facility] 02-10-2022 20:45-0400 Systolic blood pressure 100 mm[Hg] DO Matthew Marlenyhas Work Phone: [facility] 02-10-2022 14:17-0400 Body height 165.1 cm DO Matthew Lemus Work Phone: [facility] 02-10-2022 14:17-0400 Body weight 81.64 kg DO Matthew Lemus Work Phone: [facility] 02-09-2022 10:01-0400 Body height 166.37 cm [employer] 02-09-2022 10:01-0400 Diastolic blood pressure 64 mm[Hg] Kaleigh Guevara [employer] 02-09-2022 10:01-0400 Heart rate 120 /min Kaleigh Guevara [employer] 02-09-2022 10:01-0400 Systolic blood pressure 118 mm[Hg] Kaleigh Guevara [employer] 01-29-2022 11:30-0400 Body height 166.37 cm Bridgette [employer] 01-29-2022 11:30-0400 Diastolic blood pressure 62 mm[Hg] Bridgette Lewis [employer] 01-29-2022 11:30-0400 Heart rate 100 /min Bridgetteko Guilla[employer] 01-29-2022 11:30-0400 Systolic blood pressure 114 mm[Hg] Bridgette Lewis [employer] 01-25-2022 10:30-0400 Body height 166.37 cm Tae Natarajan Other [employer] Other 01-25-2022 10:30-0400 Body mass index (BMI) [Ratio] 29.49 kg/m2 Tae Natarajan Other [employer] Other 01-25-2022 10:30-0400 Body temperature 97.8 [degF] Tae Stanleyrewilliam Other [employer] Other 01-25-2022 10:30-0400 Body weight 81.65 kg Tae Stanleyrer Other [employer] Other 01-25-2022 10:30-0400 Diastolic blood pressure 64 mm[Hg] Tae Stanleyrer Other [employer] Other 01-25-2022 10:30-0400 SaO2% (BldA) [Mass fraction] 99 % Tae Natarajan Other [employer] Other 01-25-2022 10:30-0400 Systolic blood pressure 110 mm[Hg] Tae Stanleyrer Other [employer] Other 01-19-2022 10:59-0400 Body height 166.37 cm Bridgette [employer] 01-19-2022 10:59-0400 Body mass index (BMI) [Ratio] 29.5 kg/m2 Bridgette Dejes[employer] 01-19-2022 10:59-0400 Body surface area Derived from formula 1.94 m2 Bridgette Lewis [employer] 01-19-2022 10:59-0400 Body weight 81.65 kg Bridgette Debbie [employer] 01-19-2022 10:59-0400 Diastolic blood pressure 72 mm[Hg] Bridgette Lewis [employer] 01-19-2022 10:59-0400 Heart rate 112 /min Bridgette Ortega [facility] [employer] 01-19-2022 10:59-0400 Systolic blood pressure 114 mm[Hg] Bridgette Ortega [employer] 10-11-2021 18:26-0400 Diastolic blood pressure 77 mm[Hg] Matthew Lemus Work Phone: [employer] 10-11-2021 18:26-0400 Systolic blood pressure 130 mm[Hg] Matthew Lemus Work Phone: [employer] 10-11-2021 14:00-0400 Body mass index (BMI) [Ratio] 28.46 kg/m2 Matthew Lemus Work Phone: [employer] 10-11-2021 14:00-0400 Body temperature 97.81 [degF] Matthew Lemus Work Phone: [employer] 10-11-2021 14:00-0400 Body weight 77.56 kg Matthew Lemus Work Phone: [employer] 10-11-2021 14:00-0400 Heart rate 95 /min Matthew Lemus Work Phone: [employer] 10-11-2021 14:00-0400 Respiratory rate 16 /min Matthew Lemus Work Phone: [employer] 10-11-2021 14:00-0400 SaO2% (BldA) [Mass fraction] 98 % Matthew Lemus Work Phone: [employer] 09-29-2021 13:04-0400 Blood Pressure Location Rishi MARSHALL [facility] 09-29-2021 13:04-0400 Diastolic blood pressure 83 mm[Hg] Rishi MARSHALL [facility] 09-29-2021 13:04-0400 Heart rate 100 /min Rishimaricel MARSHALL [facility] [place] 09-29-2021 13:04-0400 Systolic blood pressure 124 mm[Hg] Rishi MARSHALL [facility] [place] 09-04-2021 09:22-0400 Blood Pressure Location [facility] 09-04-2021 09:22-0400 Diastolic blood pressure 67 mm[Hg] Rishi MARSHALL [facility] [place]ina 09-04-2021 09:22-0400 Heart rate 78 /min Rishi MARSHALL [facility] [place] 09-04-2021 09:22-0400 Respiratory rate 16 /min Rishimaricel [facility]SHALL [facility] 09-04-2021 09:22-0400 Systolic blood pressure 97 mm[Hg] [facility]el [facility] 03-16-2020 15:12-0400 BMI (Body Mass Index) 25.96 kg/m2 [facility], [place] 03-16-2020 15:12-0400 Body Temperature 99 [degF] [facility] [place] 03-16-2020 15:12-0400 Body weight 70.76 kg [facility] , [place] 03-16-2020 15:12-0400 BP Diastolic 69 mm[Hg] [facility] [place] , [place] 03-16-2020 15:12-0400 BP Systolic 125 mm[Hg] Catracho Parisi [place], [place] 03-16-2020 15:12-0400 Pulse (Heart Rate) 77 /min Catracho Parisi [facility], [place] 03-16-2020 15:12-0400 Pulse Oximetry 99 % Cat[place] 03-16-2020 15:12-0400 Respiratory Rate 18 /min Catracho Parisi [facility], [place] 10-05-2019 13:30-0400 Body Temperature 98.1 [degF] [place] 10-05-2019 13:30-0400 BP Diastolic 72 mm[Hg] [place] 10-05-2019 13:30-0400 BP Systolic 110 mm[Hg] [place] 10-05-2019 13:30-0400 Pulse (Heart Rate) 76 /min [place] 10-05-2019 13:30-0400 Pulse Oximetry 100 % [place] 10-05-2019 13:30-0400 Respiratory Rate 18 /min [place] 10-05-2019 10:26-0400 BMI (Body Mass Index) 24.37 kg/m2 [place] 10-05-2019 10:26-0400 Body weight 68.49 kg [place] 10-05-2019 10:26-0400 Height 167.6 cm [place] Encounters Encounter Date Encounter Type Care Provider Facility Start: 11-08-2023 ambulatory Rishi Georgei ty:[facility] Start: 11-01-2023 End: 11-01-2023 ambulatory CASEY DAVIDSON Not Available Start: 09-27-2023 End: 09-27-2023 ambulatory Rishi MARSHALL Facility:[facility] Start: 09-27-2023 End: 09-27-2023 Patient encounter procedure Rishi MARSHALL [facility] [place] Start: 08-04-2023 End: 08-04-2023 ambulatory AUDELIA HOBBS Not Available Start: 07-27-2023 End: 07-27-2023 ambulatory CASEY LETY Not Available Start: 07-07-2023 End: 07-07-2023 ambulatory [facility] Maury [facility] Start: 07-07-2023 End: 07-07-2023 Office outpatient visit 25 minutes Matthew Maury Karineoliva DO Work Phone: [facility] Internal Medicine - Family Medicine Comment on above: Bipolar 1 disorder ( [facility]) (Primary Dx); Oropharyngeal dysphagia; Generalized anxiety disorder with panic attacks Start: 07-04-2023 End: 07-04-2023 ambulatory CASEY LETY Not Available Start: 06-29-2023 End: 06-29-2023 ambulatory CASEY LETY Not Available Start: 06-13-2023 End: 06-13-2023 ambulatory CASEY LETY Not Available Start: 06-02-2023 End: 06-02-2023 ambulatory JORGE SIGALA [facility] Start: 05-19-2023 End: 05-19-2023 ambulatory Imad Asaad Facility:[facility] Start: 05-19-2023 End: 05-19-2023 Admission to same day surgery center DO Matthew Lemus Work Phone: [facility] Work Phone: Start: 05-19-2023 End: 05-19-2023 ambulatory DO Matthew Lemus Work Phone: [facility] Work Phone: Start: 05-17-2023 End: 05-17-2023 ambulatory Imad Asaad Other [employer] Other Start: 05-17-2023 Telephone encounter Imad Asaad [facility] Start: 05-12-2023 End: 05-12-2023 ambulatory Imad Asaad Facility:[facility] Start: 05-12-2023 End: 05-12-2023 ambulatory DO Matthew Lemus Work Phone: [facility] Work Phone: Start: 05-12-2023 End: 05-12-2023 Patient encounter procedure DO Matthew Lemus Work Phone: [facility] [place] Work Phone: Start: 05-10-2023 End: 05-10-2023 ambulatory BRIDGETTE LEWIS Facility: [facility] Start: 05-10-2023 End: 05-10-2023 Patient encounter procedure Rishi Ghosh MARSHALL [facility] Start: 04-27-2023 End: 04-27-2023 ambulatory Imad Asaad Other [employer] Other Start: 04-27-2023 Office outpatient ne w 45 minutes Imad Asaad [facility] Start: 04-14-2023 End: 04-14-2023 ambulatory Rishimaricel MARSHALL Facility:[id number] Start: 03-10-2023 End: 03-10-2023 Emergency department patient visit [facility] Start: 02-11-2023 End: 02-11-2023 ambulatory Sarah Anderson Other [employer] Other Start: 02-11-2023 Office outpatient visit 15 minutes Sarah Anderson [facility] Start: 02-03-2023 Telephone encounter Christine Macias DO Work Phone: Gastroenterology Comment on above: Appointment Start: 02-02-2023 End: 02-06-2023 Evaluation and management of inpatient Karri Asad Facility:[facility] Start: 02-02-2023 End: 02-06-2023 Evaluation and management of inpatient DO Matthew Lemus Work Phone: [facility] Work Phone: Start: 02-02-2023 ambulatory Casper Arteaga Facility:[facility] Start: 09-23-[address] CASEY DAVIDSON . Facili ty:[facility]1 Start: 09-16-2022 End: 09-16-[address] BRIDGETTE KRAUSE . Facility:[facility] Start: 09-04-2022 End: 09-04-2022 ambulatory CHUY MCNAMARA Facility:[facility] Start: 08-30-2022 End: 08-31-[address] CASEY DAVIDSON . Facility:[facility] Start: 08-17-2022 End: 08-18-[address] CASEY DAVIDSON . Facility:[facility] Start: 08-10-2022 End: 08-11-2022 ambulatory CASEY DAVIDSON [facility] Start: 07-21-2022 End: 07-21-[address] CASEY DAVIDSON . Facility:[facility] Start: 07-20-2022 End: 07-21-[address] CASEY DAVIDSON . Facility:[facility] Start: 07-06-2022 End: 07-06-[address] MATTHEW LEMUS Facility:[facility] Start: 06-30-2022 End: 07-01-2022 ambulatory [facility] LEWIS [facility] Start: 06-30-2022 End: 07-01-2022 Emergency department patient visit Courtney Hernandez MD [facility] Comment on above: Hyperemesis [...] surgery center DO Matthew Lemus Work Phone: [facility] Start: 02-09-2022 Patient encounter procedure Kaleigh Guevara [employer] Start: 02-09-2022 Periodic preventive med est patient 18-39 yrs Kaleigh Guevara Other [facility] Office Start: 02-04-2022 Encounter for genera l adult medical examination without abnormal findings Bridgette Lewis [employer] Start: 02-04-2022 Lab Bridgette lindsay Other [facility] Office Start: 02-04-2022 Office Services Kaleigh Hernandez ams Other [employer] Office Start: 01-29-2022 Office outpatient visit 15 minutes Bridgette Lewis Other [facility] Office Start: 01-25-2022 End: 01-25-2022 ambulatory Tae Natarajan Other [employer] Other Start: 01-25-2022 Office outpatient ne w 45 minutes Tae Natarajan [facility] Vascular Surgery Start: 01-19-2022 Office outpatient ne w 30 minutes Bridgette Adarsh Lewis Other [facility] Office Start: 12-17-2021 Encounter for genera l adult medical examination without abnormal findings [facility] Start: 12-04-2021 End: 12-05-[address] MATTHEW LEMUS Facility:[facility] Start: 11-14-2021 End: 11-14-[address] MATTHEW LEMUS Facility:[facility] Start: 10-12-2021 End: 10-12-2021 Subsequent hospital visit by physician Matthew Lemus Work Phone: [facility] Laboratory Start: 10-11-2021 End: 10-11-2021 Emergency department patient visit Matthew Lemus Work Phone: [facility] ED Comment on above: Lower abdominal pain (Primary Dx) Start: 10-09-2021 End: 10-10-[address] MATTHEW LEMUS Facility:[facility] Start: 09-29-2021 End: 09-29-2021 Patient encounter procedure Rishi MARSHALL [facility] Start: 09-04-2021 End: 09-04-2021 Patient encounter procedure Rishi MARSHALL [facility] [place] Start: 03-16-2020 End: 03-16-2020 Emergency department patient visit Catracho Parisi Work Phone: [facility] ED Comment on above: Viral URI with cough (Primary Dx) Start: 03-07-2020 End: 03-07-2020 [facility] Covid Screening Comment on above: Acute frontal sinusi tis, recurrence not specified Start: 03-03-2020 End: 03-03-2020 Subsequent hospital visit by physician Lisseth MAGALLANES Laboratory Comment on above: Gross hematuria Start: 10-12-2019 End: 10-15-2019 Patient encounter procedure [facility] Start: 10-12-2019 End: 10-14-2019 Subsequent hospital visit by physician Juan A Laguerre [facility] Nuclear Medicine Comment on above: Intractable nausea a nd vomiting Start: 10-05-2019 End: 10-05-2019 Patient encounter procedure [facility] Start: 10-05-2019 End: 10-05-2019 Subsequent hospital visit by physician Toño Blanc Work Phone: [facility] Start: 10-03-2019 End: 10-04-2019 Patient encounter procedure NIKOLAIRojelio RUBIO [facility] Start: 10-03-2019 End: 10-03-2019 Subsequent hospital visit by physician Lisseth [facility] [place] [facility] Start: 10-02-2019 End: 10-02-2019 Subsequent hospital visit by physician Tonio [employer] Pat Screening Schedule [facility] Pre-Admit Testing Comment on above: No Show Start: 02-08-2019 End: 02-10-2019 Subsequent hospital visit by physician Khalida [address] Dr Room 2 [facility] Radiology Comment on above: Gross hematuria; [...] Guevara Start: 01-29-2022 Docrev cur meds by [facility] Start: 01-19-2022 [facility] Bridgette mcarthur Start: 01-19-2022 Ketorolac tromethamine inj Bridgette Maricelrojelio tts Start: 01-19-2022 Therapeutic prophylactic/dx injection subq/im Bridgette Debbie Start: 01-05-2022 Skin test for tuberculosis, Bhumika test Start: 12-23-2021 Skin test for tuberculosis, Bhumika test Start: 10-12-2021 Gonadotropin chorionic quantitative Matthew Mendiola [facility] Work Phone: Start: 10-11-2021 Ct abdomen & pelvis w/contrast material [facility] Work Phone: Start: 10-11-2021 Assay of lipase [facility] Work Phone: Start: 10-11-2021 Urinalysis microscopic only [facility] Work Phone: Start: 10-11-2021 Urine test visual color cmprsn meths [facility] Work Phone: Start: 09-29-2021 Cystoscopy Rishi MARSHALL [...] BLANC Start: 10-05-2019 INSERT PERIPHERAL IV TOÑO BALNC Start: 10-05-2019 Urine test visual color cmprsn [...] Td Vaccines (10 - Td or Tdap) [facility] Start: 04-09-2026 HIV screen HIV screen [facility] [place], [place] Comment on above: Postponed from 2012 (Unavailable) Start: 04-09-2026 HIV screening HIV screen [facility] Comment on above: Postponed from 2012 (Unavailable) Start: 11-10-2025 DTaP/Tdap/Td vaccine (5 - Td or Tdap) DTaP/Tdap/Td vaccine (5 - Td or Tdap) [facility] Start: 11-10-2025 DTaP/Tdap/Td vaccine (6 - Tdap) DTaP/Tdap/Td vaccine (6 - Tdap) [place] Start: 07-07-2024 Adult BMI Screening Adult BMI Screening [facility] Start: 07-07-2024 Depression Screening Depression Screening [facility] Start: 07-07-2024 Tobacco Screening Tobacco Screening [facility] Start: 05-19-2023 [facility] Start: 02-06-2023 [facility] Start: 02-02-2023 Hospital admission [facility] Start: 01-28-2023 COVID-19 Vaccine () COVID-19 Vaccine () [facility] Start: 01-28-2023 Influenza vaccination [facility] Start: 08-09-2022 Lipid panel Lipid panel [employer] [facility] Start: 08-09-2022 Transferase alanine amino alt sgpt ALT [facility] Start: 08-09-2022 Transferase aspartate amino ast sgot AST [employer] Start: 06-21-2022 Iv infusion hydration initial 31 min-1 hour IV HYDRATION,INITIAL,31 MINUTES TO 1 HOUR [employer] Start: 06-17-2022 Basic metabolic panel calcium total Chem 8 [employer] Start: 06-15-2022 Brncdilat rspse spmtry pre&post-brncdilat admn Spirometry with bronchodilator [employer] Start: 05-30-2022 DEPRESSION ASSESSMENT DEPRESSION ASSESSMENT [facility] Start: 05-17-2022 Nitric oxide gas determination FENO [employer] Start: 04-03-2022 Depression Monitoring Depression Monitoring [facility] Start: 03-29-2022 Gonadotropin chorionic quantitative Beta HCG Quantitative [employer] Start: 03-17-2022 Gonadotropin chorionic quantitative Beta HCG Quantitative [employer] Start: 02-10-2022 [facility] Work Phone: Start: 02-04-2022 Assay of thyroid stimulating hormone tsh TSH [employer] Start: 02-04-2022 Blood count complete automated CBC PLATELET COUNT; AUTOMATED [employer] Start: 02-04-2022 Comprehensive metabolic panel Comp [employer] Start: 02-04-2022 Lipid panel Lipid panel [employer] Start: 02-04-2022 Urnls dip stick/tablet rgnt auto w/o microscopy UA [employer] Start: 02-04-2022 Chest PA & LAT [employer] Start: 01-19-2022 Therapeutic prophylactic/dx injection subq/im Sub Q/ IM injection [employer] Start: 12-28-2021 Influenza vaccination Flu vaccine (#1) [facility] Start: 12-23-2021 Skin test tuberculosis intradermal PPD (Skin test; tuberculosis, intradermal) [employer] Start: 07-29-2021 COVID-19 Vaccine (3 - Booster for Pfizer series) COVID-19 Vaccine (3 - Booster for Pfizer series) [facility] Start: 05-12-2021 COVID-19 Vaccine (5 - Booster) COVID-19 Vaccine (5 - Booster) [facility] Start: 03-03-2020 End: 03-03-2020 Office Visit 03/03/2020 Office Visit Urology Jose Lala MD [address] [place] [address], [address] [place] [id number] [facility] Start: 02-07-2020 Chlamydia screen Chlamydia screen [place], [place] Start: 02-07-2020 Screening for Chlamydia trachomatis Chlamydia screen [facility] Start: 01-29-2020 Influenza vaccination [place] Start: 11-04-2019 Chlamydia screen Chlamydia screen [place] Start: 10-05-2019 End: 10-05-2019 Hospital Encounter [facility] Comment on above: EGD ESOPHAGOGASTRODUODENOSCOPY Start: 02-20-2019 End: 02-20-2019 Office Visit 02/20/2019 Office Visit 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, LO[employer] - BUDGET COUNSELOR [address] [facility] [address] [place] [id number] [facility] Start: 02-08-2019 End: 02-08-2019 Appointment 02/08/2019 Appointment Radiology [facility] Start: 01-28-2019 Influenza vaccination Flu vaccine (#1) [place] Start: 2018 Cervical cancer screen Cervical cancer screen [place] Start: 2018 PAP TESTING PAP TESTING [facility] Start: 2018 Screening for malignant neoplasm of cervix [facility] Start: 2016 Urine microalbumin profile DTAP,TDAP,TD (1 - Tdap) [facility] Start: 2015 Adult BMI Follow Up Plan Adult BMI Follow Up Plan [facility] Start: 2015 Hepatitis C screening Hepatitis C screen [facility] Start: 2015 HEPATITIS C SCREENING HEPATITIS C SCREENING [facility] Start: 2015 HIV SCREENING HIV SCREENING [facility] Start: 02-05-2014 Varicella vaccine (2 of 2 - 13+ 2-dose series) Varicella vaccine (2 of 2 - 13+ 2-dose series) [facility] Start: 2012 HPV vaccine (1 - Female 3-dose series) HPV vaccine (1 - Female 3-dose series) [place] Start: 2011 PEDS TO ADULT TRANSITION ANNUAL ASSESSMENT PEDS TO ADULT TRANSITION ANNUAL ASSESSMENT [facility] Start: 2010 Varicella Vaccine (1 of 2 - 13+ 2-dose series) Varicella Vaccine (1 of 2 - 13+ 2-dose series) [place] Start: 2009 PEDS TO ADULT TRANSITION INITIAL DISCUSSION PEDS TO ADULT TRANSITION INITIAL DISCUSSION [facility] Start: 2008 HPV vaccine (1 - 2-dose series) HPV vaccine (1 - 2-dose series) [facility] Start: 2006 HPV VACCINE (1 - 2-dose series) HPV VACCINE (1 - 2-dose series) [facility] Start: 2003 Pneumococcal 0-64 years Vaccine (1 - PCV) Pneumococcal 0-64 years Vaccine (1 - PCV) [facility] Start: 2003 Pneumococcal 0-64 years Vaccine (1 of 1 - PPSV23) Pneumococcal 0-64 years Vaccine (1 of 1 - PPSV23) [place] Start: 1998 Varicella vaccine (1 of 2 - 2-dose childhood series) Varicella vaccine (1 of 2 - 2-dose childhood series) [place] Start: 1997 COVID-19 VACCINE (#1) COVID-19 VACCINE (#1) [facility] Start: 1997 HEPATITIS B (1 of 3 - 3-dose series) HEPATITIS B (1 of 3 - 3-dose series) [facility] End: 01-15-2019 Bacteria identified Cx Nom (U) Urine Culture Microbiology Routine Dysuria Gross hematuria 1 Occurrences starting 01/15/2019 until 01/15/2019 [place] Comment on above: 1 Occurrences starting 01/15/2019 until 01/15/2019 End: 02-06-2019 C.trachomatis N.gonorrhoeae DNA, Urine C.trachomatis N.gonorrhoeae DNA, Urine Microbiology Routine Gross hematuria Urgency of urination 1 Occurrences starting 02/06/2019 until 02/06/2019 [place] Comment on above: 1 Occurrences starting 02/06/2019 until 02/06/2019 C.trachomatis N.gono rrhoeae DNA, Urine C.trachomatis N.gonorrhoeae DNA, Urine Microbiology Routine Gross hematuria Urgency of urination 02/06/2019 12:22 PM EDT [place] COVID-19 [place] End: 10-02-2019 COVID-19 COVID-19 Lab Routine One Time for 1 Occurrences starting 10/02/2019 until 10/02/[facility] One Time for 1 Occurrences starting 09/2019 until 10/02/2019 End: 03-07-2020 COVID-19 Ambulatory COVID-19 Ambulatory Lab Routine Acute frontal sinusitis, recurrence not specified 1 Occurrences starting 03/07/2020 until 03/07/2020 [facility] [place] Comment on above: 1 Occurrences starting 03/07/2020 until 03/07/2020 COVID-19 Ambulatory COVID-19 Amb ulatory Lab Routine Acute frontal sinusitis, recurrence not specified 03/07/2020 11:12 AM EDT [facility] End: 03-16-2020 COVID-19, PCR COVID-19, PCR Lab Routine One Time for 1 Occurrences starting 03/16/2020 until 03/16/2020 [facility] [place] Comment on above: One Time for 1 Occurrences starting 02/27 until 03/16/2020 End: 03-03-2020 Culture, Urine Culture, Urine Microbiology Routine Gross hematuria 1 Occurrences starting 03/03/2020 until 03/03/2020 [facility]: 1 Occurrences starting 03/03/2020 until 03/03/2020 Culture, Urine [place] End: 06-30-2022 Culture, Urine [place] Work Phone: Comment on above: One Time for 1 Occurrences starting 05/2022 until 06/30/2022 [facility] PYLORI DETECTION [place], [place] Comment on above: Release Upon Ordering for 1 Occurrences starting 10/05/2019 Initiate Oxygen Therapy Protocol Initiate Oxygen Therapy Protocol Respiratory Care Routine Daily until discontinued starting 10/05/2019 [facility] above: Daily until discontinued starting 2019 Patient Education Depression, Ad ult (DC) [facility] DC Instructions [facility] Work Phone: Patient referral [facility] Work Phone: Phase I & II - metered glucose P hase I & II - metered glucose Point of Care Testing Routine As Needed until discontinued starting 10/05/2019 [facility] [place] Comment on above: As Needed until discontinued starting End: 10-05-2019 POC Urine Qual POC Urine Qual Point of Care Testing Routine One Time for 1 Occurrences starting 10/05/2019 until 10/05/2019 [place] Comment on above: One Time for 1 Occurrences starting 12/2019 until 10/05/2019 Surgical Pathology Surgical Path ology Lab Routine Release Upon Ordering for 1 Occurrences starting 10/05/2019 [place] Comment on above: Release Upon Ordering for 1 Occurrences starting 10/05/2019 End: 02-06-2019 Urine culture clean catch Urine culture clean catch Microbiology Routine Gross hematuria Urgency of urination 1 Occurrences starting 02/06/2019 until 02/06/2019 [place] Comment on above: 1 Occurrences starting 02/06/2019 until 02/06/2019 Urine culture clean catch Urine culture clean catch Microbiology Routine Gross hematuria Urgency of urination 02/06/2019 12:22 PM EDT [place] Immunizations Immunization Date Immunization Notes Care Provider Frank blanco 09-23-2022 RHO(D) immune globulin- IV or IM Matthew Yuhas DO Work Phone: [facility] 09-17-2022 RHO(D) immune globulin- IV or IM Matthew Yuhas DO Work Phone: [facility] 09-17-2022 tetanus toxoid, reduced diphtheria toxoid, and acellular pertussis vaccine, adsorbed Rishi MARSHALL [facility] 01-05-2022 [employer]ol [employer] [facility] 12-23-2021 [employer]ol [employer] [facility] 04-28-2021 influenza virus vaccine, unspecified formulation Rishi MARSHALL [facility] 04-28-2021 influenza, injectabl e, quadrivalent, preservative free Matthew Lemus DO Work Phone: [facility] 03-17-2021 COVID-19, Pfizer, 30mcg/0.3ml Bridgette Lewis [facility] 02-28-2021 SARS-CoV-2 (COVID-19 ) mRNA BNT-162b2 vax Rishi MARSHALL [facility] 02-27-2021 SARS-CoV-2 (COVID-19 ) Ad26 vaccine, recombinant Rishi MARSHALL [facility] 02-08-2021 SARS-CoV-2 (COVID-19 ) mRNA BNT-162b2 vax Rishimaricel MARSHALL [facility] 01-28-2021 SARS-CoV-2 (COVID-19 ) Ad26 vaccine, recombinant Rishi MARSHALL [facility] 01-20-2021 COVID-19, Pfizer, 30mcg/0.3ml Bridgette Lewis [facility] [employer] 05-02-2018 influenza virus vaccine, unspecified formulation [facility], [place] 01-27-2016 Influenza Vaccine, unspecified formulation [facility] [place] 01-27-2016 influenza virus vaccine, unspecified formulation Rishi MARSHALL [facility] 01-27-2016 influenza, seasonal, injectable, preservative free Matthew Marlenydiannes DO Work Phone: [facility] 12-29-2015 hepatitis B vaccine, adult dosage Rishimaricel MARSHALL [facility] 12-17-2015 hepatitis B vaccine, adult dosage Matthew Marlenydiannes DO Work Phone: [facility] 12-17-2015 hepatitis B vaccine, unspecified formulation [facility] [place] 11-26-2015 hepatitis B vaccine, adult dosage Rishi MARSHALL [facility] 11-11-2015 diphtheria, tetanus toxoids and acellular pertussis vaccine [facility] 11-11-2015 tetanus toxoid, reduced diphtheria toxoid, and acellular pertussis vaccine, adsorbed Rishi MARSHALL [facility] 01-08-2014 tetanus toxoid, reduced diphtheria toxoid, and acellular pertussis vaccine, adsorbed Rishi MARSHALL [facility] 01-08-2014 varicella virus vaccine Rishi MARSHALL [facility] 10-17-2002 diphtheria, tetanus toxoids and acellular pertussis vaccine, unspecified formulation Matthew Lemus DO Work Phone: [facility] 10-17-2002 DTaP, unspecified formulation Rishi MARSHALL [facility] 10-17-2002 measles, mumps and rubella virus vaccine [facility], [place] 10-17-2002 poliovirus vaccine, inactivated [facility], [place] 10-17-2002 poliovirus vaccine, unspecified formulation Matthew Miltonoliva DO Work Phone: [facility] 10-17-2002 tetanus toxoid, reduced diphtheria toxoid, and acellular pertussis vaccine, adsorbed Matthew Lemus DO Work Phone: [facility] 05-17-1998 haemophilus influenz ae type b vaccine, conjugate unspecified formulation Matthew Miltonoliva DO Work Phone: [facility] 05-17-1998 Hib, unspecified [facility], [place] 05-17-1998 poliovirus vaccine, inactivated [facility], [place] 03-27-1998 diphtheria, tetanus toxoids and acellular pertussis vaccine [place] 03-27-1998 diphtheria, tetanus toxoids and acellular pertussis vaccine, unspecified formulation Matthew Lemus DO Work Phone: [facility] 03-27-1998 DTaP, unspecified formulation Rishi MARSHALL [facility] 03-27-1998 haemophilus influenz ae type b vaccine, conjugate unspecified formulation Matthew Lemus DO Work Phone: [facility] 03-27-1998 haemophilus influenz ae type b vaccine, HbOC conjugate Matthew Lemus DO Work Phone: [facility] 03-27-1998 Hib, unspecified [place], [place] 03-27-1998 measles, mumps and rubella virus vaccine [place], [place] 03-27-1998 tetanus toxoid, reduced diphtheria toxoid, and acellular pertussis vaccine, adsorbed Matthew Lemus DO Work Phone: [facility] 1997 diphtheria, tetanus toxoids and acellular pertussis vaccine [place], [place] 1997 diphtheria, tetanus toxoids and acellular pertussis vaccine, unspecified formulation Matthew Lemus DO Work Phone: [facility] 1997 DTaP, unspecified formulation Rishi MARSHALL [facility] 1997 haemophilus influenz ae type b conjugate and Hepatitis B vaccine Matthew Lemus DO Work Phone: [facility] 1997 haemophilus influenz ae type b vaccine, conjugate unspecified formulation Matthew Lemus DO Work Phone: [facility] 1997 hepatitis B vaccine, adult dosage Matthew Lemus Work Phone: [facility] Work Phone: 1997 hepatitis B vaccine, unspecified formulation [facility], [place] 1997 Hib, unspecified [facility], [place] 1997 poliovirus vaccine, inactivated [facility], [place] 1997 tetanus toxoid, reduced diphtheria toxoid, and acellular pertussis vaccine, adsorbed Matthew Lemus DO Work Phone: [facility] 1997 trivalent poliovirus vaccine, live, oral Matthew Miltons DO Work Phone: [facility] 1997 diphtheria, tetanus toxoids and acellular pertussis vaccine [facility], [place] 1997 diphtheria, tetanus toxoids and acellular pertussis vaccine, unspecified formulation Matthew Lemus DO Work Phone: [facility] 1997 DTaP, unspecified formulation [employer] [facility] 1997 haemophilus influenz ae type b vaccine, HbOC conjugate Matthew Lemus DO Work Phone: [facility] 1997 tetanus toxoid, reduced diphtheria toxoid, and acellular pertussis vaccine, adsorbed Matthew Lemus DO Work Phone: [facility] 1997 trivalent poliovirus vaccine, live, oral Matthew Miltons DO Work Phone: [facility] 1997 diphtheria, tetanus toxoids and acellular pertussis vaccine [facility] [place] 1997 diphtheria, tetanus toxoids and acellular pertussis vaccine, unspecified formulation Matthew Miltons DO Work Phone: [facility] 1997 DTaP, unspecified formulation [employer] [facility] 1997 haemophilus influenz ae type b vaccine, conjugate unspecified formulation Matthew Lemus DO Work Phone: [facility] 1997 Hib, unspecified [place], [place] 1997 Hib, unspecified formulation Rishi MARSHALL [facility] 1997 poliovirus vaccine, inactivated [facility] [place] 1997 tetanus toxoid, reduced diphtheria toxoid, and acellular pertussis vaccine, adsorbed Matthew Lemus DO Work Phone: [facility] 1997 trivalent poliovirus vaccine, live, oral Matthew Lemus DO Work Phone: [facility] 1997 hepatitis B vaccine, adult dosage Matthew Lemus Work Phone: [facility] Work Phone: 1997 hepatitis B vaccine, pediatric or pediatric/adolescent dosage Rishi MARSHALL [facility] 1997 hepatitis B vaccine, unspecified formulation [facility] [place] 1997 hepatitis B vaccine, adult dosage Matthew Lemus Work Phone: [facility] Work Phone: 1997 hepatitis B vaccine, pediatric or pediatric/adolescent dosage Rishi MARSHALL [facility] 1997 hepatitis B vaccine, unspecified formulation [facility] [place] Payers Date Payer Category Payer Medicaid [id number] 2015 Unknown BCBS BC[place] - [place] P PO xxxxxxxxxxxx 2015-Present [address] [place] [address] xxxxxxxxxxxx [id number] 1997 Unknown [id number] 2.16.840.1.744784.3.579.2.177 1997 Unknown [id number] 2.16.840.1.551547.3.579.2.177 1997 Unknown [id number] 2.16.840.1.200532.3.579.2.175 1997 Unknown [id number] 2.16.840.1.692828.3.579.2.593 1997 Unknown [id number] 2.16.840.1.618006.3.579.2.593 1997 Unknown [id number] 2.16.840.1.339197.3.579.2.593 1997 Unknown [id number] 2.16.840.1.769628.3.579.2.593 1997 Unknown [id number] 2.16.840.1.629639.3.579.2.593 1997 Unknown [id number] 2.16.840.1.493588.3.579.2.593 1997 Unknown [id number] 2.16.840.1.665238.3.579.2.593 1997 Unknown [id number] 2.16.840.1.582818.3.579.2.593 1997 Unknown [id number] 2.16.840.1.386570.3.579.2.593 1997 Unknown [id number] 2.16.840.1.006415.3.579.2.593 1997 Unknown [id number] 2.16.840.1.191584.3.579.2.593 1997 Unknown [id number] 2.16.840.1.250472.3.579.2.593 1997 Unknown [id number] 2.16.840.1.891332.3.579.2.593 1997 Unknown [id number] 2.16.840.1.878609.3.579.2.593 1997 Unknown [id number] 2.16.840.1.025578.3.579.2.593 1997 Unknown [id number] 2.16.840.1.294114.3.579.2.593 1997 Unknown [id number] 2.16.840.1.610060.3.579.2.593 1997 Unknown [id number] 2.16.840.1.194522.3.579.2.593 1997 Unknown [id number] 2.16.840.1.019416.3.579.2.593 1997 Unknown [id number] 2.16.840.1.511192.3.579.2.173 1997 Unknown [id number] 2.16.840.1.528212.3.579.2.173 1997 Unknown [id number] 2.16.840.1.372105.3.579.2.173 1997 Unknown [id number] 2.16.840.1.745406.3.579.2.128 6 1997 Unknown [id number] 2.16.840.1.486301.3.579.2.128 6 1997 Unknown [id number] 2.16.840.1.708709.3.579.2.125 9 1997 Unknown [id number] 2.16.840.1.999963.3.579.2.125 9 1997 Unknown [id number] 2.16.840.1.888475.3.579.2.125 9 1997 Unknown [id number] 2.16.840.1.934247.3.579.2.125 9 1997 Unknown [id number] 2.16.840.1.522743.3.579.2.125 9 1997 Unknown [id number] 2.16.840.1.853697.3.579.2.125 9 1997 Unknown [id number] 2.16.840.1.347820.3.579.2.727 1997 Unknown [id number] 2.16.840.1.374049.3.579.2.727 1997 Unknown [id number] 2.16.840.1.546703.3.579.2.727 1997 Unknown [id number] 2.16.840.1.371411.3.579.2.727 1959 Self-pay [id number] 1959 Unknown [id number] 1959 Unknown [id number] 2.16.840.1.507767.3.441 1959 Unknown [id number] Unknown [id number] 2.16.840.1.885532.3.579.2.531 Unknown [id number] 2.16.840.1.751136.3.579.2.531 Unknown [id number] 2.16.840.1.771953.3.579.2.531 Unknown [id number] 2.840.1.667833.3.579.2.531 Social History Date Type Detail Facility Start: 02-06-2019 End: 05-10-2023 Tobacco smoking status NHIS [place] smoker [place] Start: 02-06-2019 End: 04-26-2022 Alcohol intake No [place] Start: 1995 Sex Assigned At Not on file [place] Start: 07-31-2019 End: 10-05-2019 Alcohol intake Current non-drinker of alcohol (finding) [place] Exposure to SARS-CoV -2 (event) Unable to assess [facility] Start: 03-03-2020 End: 11-10-2021 Tobacco use and exposure Never used [facility] Start: 03-03-2020 End: 07-07-2023 Alcohol intake Current drinker of alcohol (finding) [facility] Start: 03-03-2020 Alcohol Comment occasional [place] Start: 10-01-2021 End: 06-30-2022 Exposure to SARS-CoV-2 (event) Not sure [place] Tobacco smoking status Never [facility] Start: 04-03-2021 History SDOH Financial 5 [facility] Work Phone: Start: 04-03-2021 History SDOH Food Worry 1 [facility] Work Phone: Start: 04-03-2021 History 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 2 [facility] Work Phone: Start: *Tobacco [employer] Start: 1995 Sex Assigned At Female [facility] Tobacco smoking stat [facility] Tobacco smoking consumption unknown [facility] Start: 11-10-2021 Tobacco smoking status [facility] Ex-smoker [facility] History of tobacco use Current smoker [facility] History of tobacco use Tobacco U se Types Packs/Day Years Used Date Smoking Tobacco: Former Vaping/E-cigarettes Smokeless Tobacco: Never [facility] Start: 04-26-2022 End: 07-07-2023 History of Social [facility] Do you belong to any clubs or organizations such as congregational groups, unions, fraternal or athletic groups, or school groups? No [facility] Are you now , , , , never or living with a partner? Living with partner [facility] How often to you hav e a drink containing alcohol? Never [facility] How hard is it [...] [facility] Start: 04-26-2022 Education [facility] Start: 06-07-2018 Alcohol Comment occasionally [facility] Goals Date Patient Goal Desired Activity /State Functional Status Date Assessment Result Facility 05-10-2023 Functional Status N/A [facility] 02-06-2023 Functional status Patient at Baseline [facility] Work Phone: Mental Status Date Assessment Result Facility 02-06-2023 Cognitive function Cognitive Sta tus Patient at Baseline [facility] Work Phone: Clinical Notes 09-04-2021 to 07-07-2023 Matthew Lemus, DO - 07/07/2023 10:30 AM EST Note Date & Type Note Facility 07-07-2023 History of Present illness Narrative IM PROGRESS NOTE Patient - Lulú Gaitan Age - 28 y.o. - 1995 [id number] ASSESSMENT & PLAN 1. Bipolar 1 disorder [...] disorder and anxiety and was admitted to [facility] for evaluation and adjustment of her medications. [...] have CT scan and upper GI at [facility]. Both were termed normal except for changes related to her recent kidney stone and bladder manipulation. A review of systems was negative except for the following: General: sleep disturbance Psychiatric: anxiety, mood swings, and now seeing a new mental health provider (Nelly Pederson) out of [place]. Has recently had wholesale changes to her [...] found. Matthew Lemus DO., BINDU [facility] Office: [phone] documented in this encounter [facility] 05-19-2023 History and physical note Note Date/Time May 19, 2023 1:38pm [facility] [address] [place] [address] Gastroenterology H&P Signed Patient: Lulú Gaitan MR#: [id number] : 1995 Acct:[id number] Age/Sex: 28 / F Adm Date: 3 Loc: Room: Type: [facility] Attending Dr: Fany Ceballos MD [...] <Electronically signed by Fany Ceballos MD> 05/19/231337 [facility] Work Phone: 1(943) 382-447412-21-2023 [facility]* Encounter Date Diagnosis Assessment Notes Treatment Notes Treatment Clinical Notes Apr, Abnormal abdominal C T scan (ICD-10 - R93.5) Apr, Pyelonephritis of left kidney (ICD-10 - N12) [facility] Other 12-12-2023 Hospital Discharge instructions Patient Education [...] Follow these instructions at home: Medicines Take cnwz-gmj-pymsktv and prescription medicines only as told by [...] or the blood stops without treatment. Take mmrh-lct-athgpgx and prescription medicines only as told by your health care provider. Drink enough fluid to keep your urine pale yellow. This information is not intended to replace advice given to you by your health care provider. Make sure you discuss any questions you have with your health care provider. Document Revised: 01/14/2021 Document Reviewed: 01/14/2021 G-mode Patient Education 2022 Ecovision. Follow Up Care 05/06/2023 07:59:50 With:ROLANDO DEVLIN, Rishi Ghosh, URL Address: [facility] [address], [place] [address]- When:Within 4 Month(s) Comments:w/PVR [facility]ira 11-29-2023 Evaluation note* Encounter Date Diagnosis Assessment Notes Treatment Notes Treatment Clinical Notes Mar, Irritable bowel syndrome with constipation (ICD-10 - K58.1) Mar, Delayed gastric emptying (ICD-10 - K30) Mar, Vomiting (ICD-10 - R11.10) [facility] Other 09-15-2023 Evaluation note* Encounter Date Diagnosis [...] no improvement in 2 to 3 days [facility] Other 09-10-2023 Hospital Discharge instructions Additional Instructions Important Contact Information You can call [facility] at [phone] any time day or night if you [...] Text Line (available 20/12) text 4HOPE to [phone] [facility] Hope Line (available 8 a.m. Midnight) call [phone] ([phone]) [facility] Work Phone: 1(214) 466-334809-09-2023 Progress note Author Karri Kamara [facility] February 05, 2023 12:00pm Note Date/Time February 05, 2023 12:00pm [facility] [address] [place] [address] Psychiatry Progress Note Signed Patient: Lulú Gaitan MR#: [id number] : 1995 Acct:[id number] Age/Sex: 27 / F Adm Date: 3 Loc: Room: [address] [place] [address] Type : ADM IN Attending Dr: Karri [...] signed by Karri Kamara MD> 02/05/23 1200 [facility] Work Phone: 1(887) 922-396009-08-2023 Progress note Author Karri Kamara [facility] February 04, 2023 1:43pm Note Date/Time February 04, 2023 1:44pm [facility] [address] [place] [address] Psychiatry Progress Note Signed Patient: Lulú Gaitan MR#: [id number] : 1995 Acct:[id number] Age/Sex: 27 / F Adm Date: 3 Loc: Room: [address] [place] [address] Type : ADM IN Attending Dr: Karri [...] signed by Karri Kamara MD> 02/04/23 1343 [facility] Work Phone: 1(260) 886-237809-07-2023 Miscellaneous Notes* Telephone Encounter - Viviana David [...] name of hospital or facility)? [facility] If the patient had a gastric emptying [...] G/J Tube?No Preferred phone number for contact: [phone] documented in [facility] History and physical note Author Karri Kamara [facility] February 03, 2023 11:58am Note Date/Time February 03, 2023 11:58am [facility] [address] [place] [address] Psychiatry H&P Signed Patient: Lulú Gaitan MR#: [id number] : 1995 Acct:[id number] Age/Sex: 27 / F Adm Date: 3 Loc: Room: [address] [place] [address] Type: ADM IN Attending Dr: Karri Kamraa MD Copies to: MD Matthew Wyatt DO~ [...] States she recently saw her psychiatrist at [facility] and was restarted on Latuda. 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 Relationships: Patient states her boyfriend and [...] feel like current medical regimen is working [facility] Medical History (Updated 02/03/23 @ 10:00 by [...] Cloudy A Urine pH 6.0 Ur Specific [place] 1.027 Urine Protein 30 H Urine Glucose [...] Color Urine Appearance Urine pH Ur Specific [place] Urine Protein Urine Glucose (UA) Urine Ketones [...] explained Documented By: Karri Kamara MD 02/03/23 0874 Signed By: <Electronically signed by Karri Kamara MD> 02/03/23 7360 [facility] Work Phone: 1(404) 479-578602-02-2023 History of Present illness Narrative* Jenna Elliott [...] 11:40 PM EST Nurse at bedside from 1989-0131. Nurse pal[pates pt's abdomen when pt feeling [...] questions/concerns at this time. documented in [facility] Phone: 1(879) 522-754302-02-2023 Hospital Discharge instructions* Discharge Instructions* Jenna Elliott RN - 07/01/2022 12:27 AM EST OUTPATIENT DISCHARGE Dr. Miguel Aguilera [facility] Dr. Katelynn Leslie [facility] [address] [facility] [address] [place] Chyna Prakash [facility] [address] [place], [place] [id number] ACTIVITY LIMITATIONS: ( x )Up and about [...] LABOR AND DELIVERY . documented in this encounterLEWIS[facility]Tele[facility] LLC Phone: 1(672) 145-503109-14-2022 History and physical note Author Tae Natarajan [facility] February 10, 2022 5:06pm Note Date/Time February 10, 2022 5:06pm [facility] [address] [place] [address] Vascular Surgery H&P Signed Patient: Lulú Gaitan MR#: [id number] : 1995 Acct:[id number] Age/Sex: 26 / F Adm Date: 2 Loc: Room: Type: [facility] Attending Dr: Tae Natarajan MD [...] mg PO DAILY 02/10/22 [History Confirmed 02/10/22] oapcqyuugf-iyqflrdtxknwu-cdadiqkd 50 mg-300 mg-40 mg capsule (Fioricet) 1 [...] signed by MD Tae Natarajan> 02/10/22 1706 [facility] Work Phone: 1(224) [phone] Evaluation note* Encounter Date Diagnosis Assessment Notes [...] ahead with arteriogram and venogram as requested. [facility] Other 05-15-2022 Hospital Discharge instructions* Instructions* Christine Vazquez PA-C - 10/11/2021 Take ibuprofen kfsy-ggb-nrwgcgx 600 mg 3 times daily as needed for pain. Follow- up with your primary care provider and discuss additional testing if symptoms not improved. Return to the emergency room for any worsening symptoms. * Attachments The following attachments cannot be sent through Care Everywhere. * Pelvic Pain (Danish) documented in this [facility] Phone: 1([phone]) 533-737105-03-2022 Hospital Discharge instructions Patient Education 09/29/2021 13:37:25 [...] Follow these instructions at home: Medicines Take hmsi-wjd-ijagyja and prescription medicines only as told by [...] or the blood stops without treatment. Take tlue-dsf-tieablp and prescription medicines only as told by your health care provider. Drink enough fluid to keep your urine clear or pale yellow. This information is not intended to replace advice given to you by your health care provider. Make sure you discuss any questions you have with your health care provider. Document Released: 05/16/2006 Document Revised: 10/10/2019 Document Reviewed: 06/18/2017 G-mode Patient Education 2020 Ecovision. Follow Up Care 09/22/2021 14:13:42 With:ROLANDO DEVLIN, Rishi Ghosh, URL Address: [facility] [address] , [place] [address]- Business (1) When: Unknown [facility] 04-08-2022 Hospital Discharge instructions Patient [...] including vitamins, herbs, eye drops, creams, and lyrq-gvl-owbhtmt medicines. Any problems you or family members [...] provider tells you to take them. ?Taking ttnu-ltx-humnmmj medicines, vitamins, herbs, and supplements. Follow instructions [...] Follow these instructions at home: Medicines Take tswg-egm-fwyymvw and prescription medicines only as told by [...] 05/13/2001 Document Revised: 05/08/2019 Document Reviewed: 05/08/2019 G-mode Patient Education 2020 Ecovision. Follow Up Care 08/07/2021 15:47:45 With:ROLANDO DEVLIN, Rishi Ghosh, URL Address: [address] [place] [address]- When: Unknown Comments:will schedule Cysto [facility] discharge summary Author Karri Kamara [facility] February 06, 2023 11:04am Note Date/Time February 06, 2023 11:04am [facility] [address] [place] [address] Discharge Summary Signed Patient: Lulú Gaitan MR#: [id number] : 1995 Acct:[id number] Age/Sex: 27 / F Adm Date: 3 Loc: Room: [address] [place] [address]: Karri Kamara MD Copies to: [...] States she recently saw her psychiatrist at [facility] and was restarted on Latuda. 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 Midnight) call [phone] ([phone]) Stand Alone Forms: Work/School Release Form Prescriptions: [...] Follow Up: [facility] [Other] (fax:[phone]) [facility] [Outside] Matthew Lemus DO [Primary Care Provider] - (Please contact for any medical needs or concerns) Documented By: Karri Kamara MD 02/06/23 110 Signed By: <Electronically signed by Karri Kamara MD> 02/06/23 110 [facility] Work Phone: Evaluation + Plan note No data available for this section [facility] Dina evaluation + Plan note Future Appointments Appointment Date:02/05/2022 09:45:00 AM Scheduled Provider:Rishi MARSHALL MD Location:[facility] Appointment Type:URO Office Visit [facility] Evaluation + Plan note Future Appointments Appointment Date:09/27/2023 10:15:00 AM Scheduled Provider:Rishi MARSHALL MD Location:[facility] Appointment Type:URO Office Visit [facility] evaluation note* Diagnosis Lower abdominal pain- Primary Abdominal pain, other specified site documented in this encounter [employer] Phone: evaluation note* Diagnosis Onset Date Resolution Status Hematuria acute [facility] [employer] Work Phone: evaluation note* Diagnosis Hyperemesis- Primary Persistent vomiting Pelvic cramping Unspecified symptom associated with female genital organs documented in this encounter [facility] Work Phone: evaluation note* Diagnosis Onset Date Resolution Status Bipolar 1 disorder acute Depression acute Major depressive disorder, recurrent acute Suicidal ideation acute [facility] Work Phone: evaluation noteNo assessment information available [facility] [employer] Work Phone: evaluation note* Diagnosis Bipolar 1 disorder ([facility])- Primary Oropharyngeal dysphagia Dysphagia, oropharyngeal phase Generalized [...] History umbilical hernia repair [facility] Hospitalization History as a child for stomach p [place] [facility] Other Hispbjy general Narrative - Reported* Type Description Date Medical History migraine headache Medical History endometriosis Medical History PCOS Medical History borderline personality disorder Medical History bipolar Medical History anxiety Medical History chronic depression Surgical History laparoscopy x3 female Surgical History umbilical hernia repair Hospitalization History 1 [facility] 2020 Hospitalization History as a child for stomach p ain Hospitalization History LATUDA REACTION 1 [facility] 02/02/2023 [facility] Other Hospital Discharge instructions Additional Instructions Hold Metformin for 2 days. No heavy lifting of anything over 5 pounds. No pushing or pulling. No vigorous activity. Remove dressing in 24 hours.[facility] Work Phone: Hospital Discharge instructions Additional [...] NOT operate machinery such as power tools, Innovaspire mowers, Duelwers, sewing machines, etc. for 24 hours. - [...] problems. -Follow up with PCP. -Office number [phone]. [facility] Work Phone: Hospital Discharge instructions No data available for this section [facility] InstructionsNot on filedocumented in this encounter [facility] No data available for this section [facility] Assessments Diagnosis Gross hematuria Urgency of urination Diagnosis Gross hematuria Urgency of urination Diagnosis Gross hematuria Diagnosis Acute frontal sinusitis, recurrence not specified Diagnosis Viral URI with cough Acute upper respiratory infections of unspecified site Diagnosis Intractable nausea and vomiting Persistent vomiting Diagnosis Dysuria Gross hematuria Advance Directives No Advanced Directives Records FoundDocuments on File Type Date Recorded Patient Automatic Drilling Machine Operator Expl anation Advance Directives and Living Will Power of Sampling Expert Documents on File Type Date Recorded Patient Automatic Drilling Machine Operator Expl anation Advance Directives and Living Will Power of Sampling Expert Documents on File Type Date Recorded Patient Automatic Drilling Machine Operator Expl anation ACP-Advance Directive ACP-Power of Sampling Expert Advance Directive Response Recorded Date/ Time Advance [...] Where can you learn more? Go to [email or web address] and sign in to your Audicus account. Enter J454 in the Search Health Information box to learn more about Upper GI Endoscopy: What to Expect at Home. . 4460-7158 AffinityClick. Care instructions adapted under license by [employer]. This care instruction is for use with your licensed healthcare professional. If you have questions about a medical condition or this instruction, always ask your healthcare professional. AffinityClick disclaims any warranty or liability for your use of this information. Content Version: 9.9.403359; Last Revised: July 19, 2012 Upper GI [...] Where can you learn more? Go to [email or web address] and sign in to your Audicus account. Enter J454 in the Search Health Information box to learn more about Upper GI Endoscopy: What to Expect at Home. . 3415-1809 AffinityClick. Care instructions adapted under license by Beautylish. This care instruction is for use with your licensed healthcare professional. If you have questions about a medical condition or this instruction, always ask your healthcare professional. AffinityClick disclaims any warranty or liability for your use of this information. Content Version: 9.9.656441; Last Revised: July 19, 2012 Upper GI [...] Where can you learn more? Go to [email or web address] and sign in to your Audicus account. Enter J454 in the Search Health Information box to learn more about Upper GI Endoscopy: What to Expect at Home. . 1177-2286 AffinityClick. Care instructions adapted under license by Beautylish. This care instruction is for use with your licensed healthcare professional. If you have questions about a medical condition or this instruction, always ask your healthcare professional. AffinityClick disclaims any warranty or liability for your use of this information. Content Version: 9.9.177799; Last Revised: July 19, 2012 Upper GI [...] Where can you learn more? Go to [email or web address] and sign in to your Audicus account. Enter J454 in the PingTune Information box to learn more about Upper GI Endoscopy: What to Expect at Home. . 5079-6206 FreshT, WinView. Care instructions adapted under license by Beautylish. This care instruction is for use with your licensed healthcare professional. If you have questions about a medical condition or this instruction, always ask your healthcare professional. AffinityClick disclaims any warranty or liability for your use of this information. Content Version: 9.9.830388; Last Revised: July 19, 2012 Upper GI [...] Where can you learn more? Go to [email or web address] and sign in to your Audicus account. Enter J454 in the Search Health Information box to learn more about Upper GI Endoscopy: What to Expect at Home. . 5494-3804 AffinityClick. Care instructions adapted under license by Beautylish. This care instruction is for use with your licensed healthcare professional. If you have questions about a medical condition or this instruction, always ask your healthcare professional. AffinityClick disclaims any warranty or liability for your use of this information. Content Version: 9.9.386744; Last Revised: July 19, 2012 Upper GI [...] Where can you learn more? Go to [email or web address] and sign in to your Audicus account. Enter J454 in the Search Health Information box to learn more about Upper GI Endoscopy: What to Expect at Home. . 0607-6774 AffinityClick. Care instructions adapted under license by Beautylish. This care instruction is for use with your licensed healthcare professional. If you have questions about a medical condition or this instruction, always ask your healthcare professional. AffinityClick disclaims any warranty or liability for your use of this information. Content Version: 9.9.808831; Last Revised: July 19, 2012 Upper GI [...] the day after the test, use an sgqr-gji-ccyjnam spray to numb your throat. Follow-up care [...] Where can you learn more? Go to [email or web address] and sign in to your Audicus account. Enter J454 in the Search Health Information box to learn more about Upper GI Endoscopy: What to Expect at Home. If you do not have an account, please click on the Sign Up Now link. Current as of: January 07, 2019Content Version: 12.4 AffinityClick. Care instructions adapted under license by [employer]. If you have questions about a medical condition or this instruction, always ask your healthcare professional. AffinityClick disclaims any warranty or liability for your use of this information. documented in this encounter* Attachments The following attachments cannot be sent through Care Everywhere. * URI (Upper Respiratory Infection): Viral (Danish) documented in this encounter Summary Purpose Family [...] FRACTION Toño Blanc MD [address] [place] [address] Chief Complaint and Reason for Visit Chief [...] To Contact Diagnoses Dysphagia DX DYSPHAGIA Procedures [place] ESOPHAGOGASTRODUODENOSCOPY TRANSORAL DIAGNOSTIC EGD ESOPHAGOGASTRODUODENOSCOPY Toño Blanc MD [address] [place] [address] [facility] Reason Comments Cough pt states onset last week. PT states she is taking Prednisone and Keflex for a sinus infection Status Reason Specialty Diagnoses / Procedures Referred By Contact Referred To Contact Not Required - [facility] Diagnoses Nausea with vomiting, unspecified Procedures HC NM HEPATOBILIARY IMAGING W PHARM Toño Blanc MD [address] [place] [address] [facility] Nuclear Medicine [address] [place] [id number] Reason Comments Abdominal Cramping onset this am [...] section and content) DATE CREATED AUTHOR 10/15/2019 [facility] DATE CREATED AUTHOR AUTHOR'S ORGANIZ ATION 03/07/2020 [facility] DATE CREATED AUTHOR AUTHOR'S ORGANIZ ATION 07/27/2021 [facility] DATE CREATED AUTHOR AUTHOR'S ORGANIZ ATION 09/24/2022 [facility] DATE CREATED AUTHOR AUTHOR'S ORGANIZ ATION 02/12/2023 [facility] DATE CREATED AUTHOR AUTHOR'S ORGANIZ ATION 03/12/2023 [facility] DATE CREATED AUTHOR AUTHOR'S ORGANIZ ATION 06/05/2023 [facility] DATE CREATED AUTHOR AUTHOR'S ORGANIZ ATION 07/08/2023 [facility] DATE CREATED AUTHOR AUTHOR'S ORGANIZ ATION 07/11/2023 [facility] DATE CREATED AUTHOR AUTHOR'S ORGANIZ ATION 11/02/2023 [facility] EPIC DATE CREATED AUTHOR AUTHOR'S ORGANIZ ATION 11/02/2023 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 Maker Relationship Specialty Start Date End Date Matthew Lemus [address] [place] [phone] PCP - General Internal Medicine 10/11/21 Harpsichord Maker Relationship Specialty Start Date End Date Mattehw Lemus [address] [place] [address] PCP - General Internal Medicine 10/11/21 Team Status: Inactive Member Role Status Dates Matthew Lemus DO Primary Care Provider Active Tae Natarajan MD Attending Provider Active Harpsichord Maker Relationship Specialty Start Date End Date Bridgette Lewis MD [address] [place] [address] PCP - General Internal Medicine 06/30/22 Harpsichord Maker Relationship Specialty Start Date End Date Agustin Ramos [address] [place] [phone] PCP - General 01/27/04 Team Status: Inactive Member Role Status Dates Matthew Lemus DO Primary Care Provider Active Fany Ceballos MD Attending Provider Active Harpsich[employer] Maker Relationship Specialty Start Date End Date Matthew Lemus DO [address] [place] [address] PCP - General Internal Medicine 12/19/22 Goals [...] or prosecute any alcohol or drug abuse patient.[facility] FOR RECORDS PERTAINING TO PATIENTS [...] BE BASED ON THE PRIMARY CLINICAL RECORDS. [facility] provides no warranty or guarantee of the accuracy or completeness of information in this document.
== END 2023-11-05 12:58 | disposition home or self-care (01) ==
LOC: US 12:57
PROVIDERS: PCP Internal Medicine; Visit Provider Urology
DX: R10.9 Unspecified abdominal pain (principal); K76.0 Fatty (change of) liver, not elsewhere classified
CPT/HCPCS: 74018; 76775

== ENCOUNTER 2023-11-05 21:59 | Emergency (ER) | payer OTHER, SELFPAY ==
[2023-11-05 22:03] VITALS: BP 128/84; PULSE 63; TEMP 36.6; O2SAT 100; BMI 23.3
--- OUTSIDE RECORDS SUMMARY | 2023-11-05 22:05 | XMS_ITS ---
Patient Summarization (C-CDA 2.1 CCD) Created on: November 05, 2023 MARIFER LULÚ L : 1995 Sex: Female Author Organization Sample organization Care Team Providers Care Drill Operator Name Role Phone Lisseth Johnson Primary Care Provider TOÑO BLANC Admitting Unavailable TOÑO BLANC Attending Unavailable LISSETH JOHNSON Primary Care Unavailable TOÑO BLANC Referring Unavailable LISSETH JOHNSON Primary Care Unavailable Lisseth Johnson Primary Care Provider BRIANA RUBIO Referring Unavailable LISSETH JOHNSON Primary Care Unavailable MATTHEW LEMUS Primary Care Physician [phone] Matthew Lemus Primary Care Provider Unavailable Primary Care Physician Unavailab le Unavailable Primary Care Physician Unavailab le Unavailable Primary Care Physician Unavailab le Bridgette Lewis Primary Care Physician Julianava ilBridgette Trimble Unavailable Unavailable Tae Natarajan Unavailable Bridgette Lewis Primary Care Physician Unava ilBridgette Trimble Primary Care Physician Unava ilKaleigh Stewart Primary Care Physician DO Matthew Arango Primary Care Provider MD Tae Natarajan Attending Provider Kaleigh Guevara Primary Care Physician Julianavai Bridgette Desouza Primary Care Physician Unava ilMaricel Canela Primary Care Physician Unavailab Maricel Crespo Primary Care Physician Unavailab le Bridgette Lewis Primary Care Physician Unava ilBridgette Trimble Primary Care Physician Unava ilBridgette Trimble Primary Care Physician Unava ilBridgette Trimble MD Primary Care Provider [phone] DR MATTHEW LEMUS Primary Care Unavailable LETY [...] Unavailabl e LUPIS ., ERNESTINE Consulting Unavailable MIRLANDE GIBlue Consulting Unavailable NAIMA, CHUY Admitting Unavailable NAIMA, [...] Admitting Unavailable FABY ., AUDELIA Consulting Unavailable YUJULIEN, DR CASTRO Primary Care Unavailable FABY ., AUDELIA Admitting Unavailable FABY .AUDELIA Attending Unavailable YUHAS, DR CASTRO Primary Care Unavailable PAY ., DR THURAMN Consulting Unavailable JEFERSON, DR CASTRO Attending Unavailable JEFERSON, DR CASTRO Admitting Unavailable GRECHNY .WM Consulting UnavailISIDRO Manrique Consulting Unavailable GOVIND JOHNSTON Consulting Unavailable Agustin Ramos Primary Care Provider DO Matthew Lemus Primary Care Provider [phone] MD Matthwe Leslie Emergency Provider MD Fiona Kamarami Admit Provider MD Karri Kamara Attending Provider Sarah Anderson Unavailable CASEY DAVIDSON Referring Unavailable BRIDGETTE LEWIS Primary Care Unavailable BRIDGETTE LEWIS Primary Care Unavailable DEREJE VALERIO Admitting Unavailable DEREJE VALERIO Attending Unavailable VINOD CLARK Attending Unavailable BRIDGETTE LEWIS Primary Care Unavailable Lin Imedie Unavailable DO Matthew Lemus Primary Care Provider MD Fany Ceballos Attending Provider JORGE LAMAS Attending Unavailable MATTHEW LEMUS Referring Unavailable MATTHEW LEMUS Primary Care Unavailable Matthew Lemus DO Primary Care Provider [phone] Asaad, Imad Admitting Unavailable Asaad, Imad Attending Unavailable Matthew Lemus Primary Care Unavailable Jenni, Casper Admitting Unavailab le Jenni, Casper Attending Unavailab le Matthew Lemus Primary Care Unavailable Asad, Karri Admitting Unavailable Asad, Karri Attending Unavailable Matthew Lemus Primary Care Unavailable Asaad, Imad Admitting Unavailable Asaad, Imad Attending Unavailable Matthew Lemus Primary Care Unavailable MATTHEW LEMUS Attending Unavailable MATTHEW LEMUS Referring Unavailable MATTHEW LEMUS Primary Care Unavailable LETY, CASEY Attending Unavailable LETY, CASEY Attending Unavailable LETY, CASEY Attending Unavailable LETY, CASEY Attending Unavailable FABYAUDELIA BURR Attending Unavailable LETY, CASEY Attending Unavailable DEBBIEBRIDGETTE Primary Care Unavailable MARSHALL, Rishi R Attending Unavailable MARSHALL, Rishi R Attending Unavailable MARSHALL, Rishi R Attending Unavailable MARSHALL, Rishi R Attending Unavailable DEBBIE, EDDYVILLE Primary Care Unavailable Allergies Allergy Classification Reported Allergen(s) Allergy Type Date of Onset Reaction(s) Facility Bee/Wasp/Ant Venom (1 source) Bee/Wasp/Ant venom; Translations: [Bee Stings] Substance Allergy [facility] Repository Macrolides (antibiotic) (2 sources) Azithromycin; Translations: [azithromycin] Drug Allergy [facility] Rep[facility] Pollen (1 source) Bee pollen; Translations: [bee pollen] Substance Allergy [facility] Repository (14 sources) bee venom Propensity to adverse reactions to drug 5 [place], [place] (16 sources) Erythromycin; Translations: [ERYTHROMYCIN] Drug Allergy 5 Itching, Dermatitis, Rash, Other (See Comments), pain [place], [place] (20 sources) Azithromycin; Translations: [azithromycin] Drug Allergy 9 Unknown (qualifier value), Swelling, Dermatitis, Rash, pain [facility] (4 sources) Bee pollen; Translations: [bee pollen] Drug Allergy Edema (finding) [facility] (4 sources) Bee/Wasp/Ant venom Drug allergy Unknown (qualifier value) [facility] (14 sources) lamoTRIgine; Translations: [Lamictal] Drug Allergy [facility] (12 sources) lamoTRIgine; Translations: [LAMOTRIGINE] Drug Allergy 2 Swelling, Rash [facility] (1 source) Azithromycin Drug Allergy [facility] Repository (2 sources) bee venom Drug allergy (disorder) [facility] (1 source) lamoTRIgine Drug Allergy [facility] Rep[facility] (7 sources) lurasidone; Translations: [LURASIDONE] Drug Allergy 3 Other (See Comments) [facility] (2 sources) BEE VENOM PROTEIN (HONEY BEE); Translations: [BEE VENOM PROTEIN (HONEY BEE)] Propensity to adverse reactions to drug (disorder) 5 [facility] Repository (1 source) Azithromycin Drug Allergy 3 [facility] Repository (1 source) lamoTRIgine Drug Allergy 3 [facility] Repository (1 source) lurasidone Drug Allergy 3 [facility] Repository Encounters Encounter Date Encounter Type Care Provider Facility Start: 11-08-2023 [facility] Start: 11-01-2023 End: 11-01-2023 ambulatory CASEY DAVIDSON Not Available Start: 09-27-2023 End: 09-27-2023 ambulatory Rishi MARSHALL Facility:[facility] Start: 09-27-2023 End: 09-27-2023 Patient encounter procedure Rishi MARSHALL [facility] Start: 08-04-2023 End: 08-04-2023 ambulatory AUDELIA HOBBS Not Available Start: 07-27-2023 End: 07-27-2023 ambulatory CASEY LETY Not Available Start: 07-07-2023 End: 07-07-2023 ambulatory MATTHEW SANTIAGOOliva [facility] Start: 07-07-2023 End: 07-07-2023 Office outpatient visit 25 minutes Matthew Lemus DO Work Phone: [facility] Comment on above: Bipolar 1 disorder ( [facility]) (Primary Dx); Oropharyngeal dysphagia; Generalized anxiety disorder with panic attacks Start: 07-04-2023 End: 07-04-2023 ambulatory CASEY LETY Not Available Start: 06-29-2023 End: 06-29-2023 ambulatory CASEY LETY Not Available Start: 06-13-2023 End: 06-13-2023 ambulatory CASEY LETY Not Available Start: 06-02-2023 End: 06-02-2023 ambulatory JORGE SIGALA [facility] Start: 05-19-2023 End: 05-19-2023 ambulatory Imad Asaad Facility:[facility] Start: 05-19-2023 End: 05-19-2023 Admission to same day surgery center DO Matthew Lemus Work Phone: [facility] Work Phone: Start: 05-19-2023 End: 05-19-2023 ambulatory DO Matthew Lemus Work Phone: [facility] Work Phone: Start: 05-17-2023 End: 05-17-2023 ambulatory Imad Asaad Other [employer] Other Start: 05-17-2023 Telephone encounter Imad Asaad [facility] Start: 05-12-2023 End: 05-12-2023 ambulatory Imad Asaad Facility:[facility] Start: 05-12-2023 End: 05-12-2023 ambulatory DO Matthew Lemus Work Phone: [facility] Work Phone: Start: 05-12-2023 End: 05-12-2023 Patient encounter procedure DO Matthew Lemus Work Phone: [facility] [place] Work Phone: Start: 05-10-2023 End: 05-10-2023 ambulatory BRIDGETTE LEWIS Facility: [facility] Start: 05-10-2023 End: 05-10-2023 Patient encounter procedure Rishi MARSHALL [facility] Start: 04-27-2023 End: 04-27-2023 ambulatory Imad Asaad Other [employer] Other Start: 04-27-2023 Office outpatient ne w 45 minutes Imad Asaad [facility] Start: 04-14-2023 End: 04-14-2023 ambulatory Rishi MARSHALL Facility:[id number] Start: 03-10-2023 End: 03-10-2023 Emergency department patient visit [facility] Start: 02-11-2023 End: 02-11-2023 ambulatory Sarah Anderson Other [employer] Other Start: 02-11-2023 Office outpatient visit 15 minutes Sarah Anderson [facility] [place] Start: 02-03-2023 Telephone encounter Christine Macias DO Work Phone: Gastroenterology Comment on above: Appointment Start: 02-02-2023 End: 02-06-2023 Evaluation and management of inpatient Karrisamantha Kamara Facility:[facility] Start: 02-02-2023 End: 02-06-2023 Evaluation and management of inpatient DO Matthew Lemus Work Phone: [facility] Work Phone: Start: 02-02-2023 ambulatory Casper Arteaga Facility:[facility] Start: 09-23-[address] ACSEY DAVIDSON . Facili ty:[facility] Start: 09-16-2022 End: 09-16-[address] BRIDGETTE KRAUSE . Facility:[facility] Start: 09-04-2022 End: 09-04-2022 ambulatory CHUY MCNAMARA Facility:[facility] Start: 08-30-2022 End: 08-31-[address] CASEY DAVIDSON . Facility:[facility] Start: 08-17-2022 End: 08-18-[address] CASEY DAVIDSON . Facility:[facility] Start: 08-10-2022 End: 08-11-2022 ambulatory [facility]IDSON [facility] Start: 07-21-2022 End: 07-21-[address] CASEY DAVIDSON . Facility:[facility] Start: 07-20-2022 End: 07-21-[address] CASEY DAVIDSON . Facility:[facility] Start: 07-06-2022 End: 07-06-[address] MATTHEW LEMUS Facility:[facility] Start: 06-30-2022 End: 07-01-2022 [facility] Start: 06-30-2022 End: 07-01-2022 Emergency department patient visit Courtney Hernandez MD Work Phone[facility] Comment on above: Hyperemesis [...] surgery center DO Matthew Lemus Work Phone: [facility] Start: 02-09-2022 Patient encounter procedure Kaleigh Guevara [employer] Start: 02-09-2022 Periodic preventive med est patient 18-39 yrs Kaleigh Guevara Other [facility] Start: 02-04-2022 Encounter for genera l adult medical examination without abnormal findings Bridgette Lewis [employer] Start: 02-04-2022 Lab Bridgette lindsay Other [facility] Office Start: 02-04-2022 Office Services Kaleigh Hernandez ams Other [facility] Start: 01-29-2022 Office outpatient visit 15 minutes Bridgette Lewis Other [facility] Start: 01-25-2022 End: 01-25-2022 ambulatory Tae Natarajan Other [facility] [employer] Other Start: 01-25-2022 Office outpatient ne w 45 minutes Tae MCCORMICK [facility] Start: 01-19-2022 Office outpatient ne w 30 minutes Bridgette Adarsh Lewis Other [facility] Office Start: 12-17-2021 Encounter for genera l adult medical examination without abnormal findings [facility] Start: 12-04-2021 End: 12-05-[address] MATTHEW LEMUS Facility:[facility] Start: 11-14-2021 End: 11-14-[address] MATTHEW LEMUS Facility:[facility] Start: 10-12-2021 End: 10-12-2021 Subsequent hospital visit by physician Matthew Lemus Work Phone: [facility] Laboratory Start: 10-11-2021 End: 10-11-2021 Emergency department patient visit Matthew Lemus Work Phone: [facility] ED Comment on above: Lower abdominal pain (Primary Dx) Start: 10-09-2021 End: 10-10-[address] MATTHEW LEMUS Facility:[facility] Start: 09-29-2021 End: 09-29-2021 Patient encounter procedure Rishi MARSHALL [facility] Start: 09-04-2021 End: 09-04-2021 Patient encounter procedure Rishi MARSHALL [facility] Start: 03-16-2020 End: 03-16-2020 Emergency department patient visit Catracho Parisi Work Phone: [facility] ED Comment on above: Viral URI with cough (Primary Dx) Start: 03-07-2020 End: 03-07-2020 Subsequent hospital visit by physician [facility] Covid Screening [facility] Comment on above: Acute frontal sinusi tis, recurrence not specified Start: 03-03-2020 End: 03-03-2020 Subsequent hospital visit by physician Lisseth MAGALLANES Laboratory Comment on above: Gross hematuria Start: 10-12-2019 End: 10-15-[address] [facility] Start: 10-12-2019 End: 10-14-2019 Subsequent hospital visit by physician Juan A Laguerre Room 2 [facility] Nuclear Medicine Comment on above: Intractable nausea a nd vomiting Start: 10-05-2019 End: 10-05-[address] [facility] Start: 10-05-2019 End: 10-05-2019 Subsequent hospital visit by physician Toño Blanc Work Phone: [facility] Start: 10-03-2019 End: 10-04-2019 Patient encounter procedure BRIANA RUBIO [facility] Start: 10-03-2019 End: 10-03-2019 Subsequent hospital visit by physician Lisseth [facility] [place] [facility] Start: 10-02-2019 End: 10-02-2019 Subsequent hospital visit by physician Tonio Covid19 Pat Screening Schedule [facility] Pre-Admit Testing Comment on above: No Show Start: 02-08-2019 End: 02-10-2019 Subsequent hospital visit by physician Khalida Grey Dr Room 2 [facility] Radiology Comment on above: Gross hematuria; Urgency of urination Start: 02-06-2019 End: 02-06-2019 Subsequent hospital visit by physician Lisseth MAGALLANES Laboratory Comment on above: Gross hematuria; Urgency of urination Start: 01-15-2019 End: 01-15-2019 Subsequent hospital visit by physician Lisseth MAGALLANES Laboratory Comment on above: Dysuria; Gross hematuria Goals Date Patient Goal Desired Activity /State Immunizations Immunization Date Immunization Notes Care Provider Frank blanco 09-23-2022 RHO(D) immune globulin- IV or IM Matthew Lemus DO Work Phone: [facility] 09-17-2022 RHO(D) immune globulin- IV or IM Matthew Lemus DO Work Phone: [facility] 09-17-2022 tetanus toxoid, reduced diphtheria toxoid, and acellular pertussis vaccine, adsorbed Rishi MARSHALL [facility] 01-05-2022 [facility] [employer] 12-23-2021 [facility] [employer] [place] [employer] 04-28-2021 influenza virus vaccine, unspecified formulation Rishi MARSHALL [facility] 04-28-2021 influenza, injectabl e, quadrivalent, preservative free Matthew Lemus DO Work Phone: [facility] 03-17-2021 COVID-19, Pfizer, 30mcg/0.3ml Bridgette Lewis [employer] 02-28-2021 SARS-CoV-2 (COVID-19 ) mRNA BNT-162b2 vax [employer] [facility] 02-27-2021 SARS-CoV-2 (COVID-19 ) Ad26 vaccine, recombinant [employer] [facility] 02-08-2021 SARS-CoV-2 (COVID-19 ) mRNA BNT-162b2 vax [employer]ishi [employer] [facility] 01-28-2021 SARS-CoV-2 (COVID-19 ) Ad26 vaccine, recombinant Rishi [employer] [facility] 01-20-2021 COVID-19, Pfizer, 30mcg/0.3ml Bridgette Lewis [employer] 05-02-2018 influenza virus vaccine, unspecified formulation Lisseth [facility], [place] 01-27-2016 Influenza Vaccine, unspecified formulation [facility] [place] 01-27-2016 influenza virus vaccine, unspecified formulation Rishi MARSHALL [facility] 01-27-2016 influenza, seasonal, injectable, preservative free Matthew Lemus DO Work Phone: [facility] 12-29-2015 hepatitis B vaccine, adult dosage Rishimaricel MARSHALL [facility] 12-17-2015 hepatitis B vaccine, adult dosage Matthew Lemus DO Work Phone: [facility] 12-17-2015 hepatitis B vaccine, unspecified formulation [facility] [place], [place] 11-26-2015 hepatitis B vaccine, adult dosage Rishimaricel MARSHALL [facility] 11-11-2015 diphtheria, tetanus toxoids and acellular pertussis vaccine [facility] 11-11-2015 tetanus toxoid, reduced diphtheria toxoid, and acellular pertussis vaccine, adsorbed Rishi MARSHALL [facility] 01-08-2014 tetanus toxoid, reduced diphtheria toxoid, and acellular pertussis vaccine, adsorbed Rishi MARSHALL [facility] 01-08-2014 varicella virus vaccine Rishi MARSHALL [facility] 10-17-2002 diphtheria, tetanus toxoids and acellular pertussis vaccine, unspecified formulation Matthew Lemus DO Work Phone: [facility] 10-17-2002 DTaP, unspecified formulation Rishi MARSHALL [facility] 10-17-2002 measles, mumps and rubella virus vaccine [facility] [place] 10-17-2002 poliovirus vaccine, inactivated [facility], [place] 10-17-2002 poliovirus vaccine, unspecified formulation Matthew Lemus DO Work Phone: [facility] 10-17-2002 tetanus toxoid, reduced diphtheria toxoid, and acellular pertussis vaccine, adsorbed Matthew Lemus DO Work Phone: [facility] 05-17-1998 haemophilus influenz ae type b vaccine, conjugate unspecified formulation Matthew Lemus DO Work Phone: [facility] 05-17-1998 [facility]ib, [facility] [place] 05-17-1998 poliovirus vaccine, inactivated [facility] [place] 03-27-1998 diphtheria, tetanus toxoids and acellular pertussis vaccine [facility], [place] 03-27-1998 diphtheria, tetanus toxoids and acellular pertussis vaccine, unspecified formulation Matthew Lemus DO Work Phone: [facility] 03-27-1998 DTaP, unspecified formulation Rishi MARSHALL [facility] 03-27-1998 haemophilus influenz ae type b vaccine, conjugate unspecified formulation Matthew Lemus DO Work Phone: [facility] 03-27-1998 haemophilus influenz ae type b vaccine, HbOC conjugate Matthew Lemus DO Work Phone: [facility] 03-27-1998 Hib, unspecified [facility], [place] 03-27-1998 measles, mumps and rubella virus vaccine [facility] [place] 03-27-1998 tetanus toxoid, reduced diphtheria toxoid, and acellular pertussis vaccine, adsorbed Matthew Lemus DO Work Phone: [facility] 1995 diphtheria, tetanus toxoids and acellular pertussis vaccine [facility] [place] [facility] diphtheria, tetanus toxoids and acellular pertussis vaccine, unspecified formulation Matthew Lemus DO Work Phone: [facility] 1995 DTaP, unspecified formulation Rishi MARSHALL [facility] 1995 haemophilus influenz ae type b conjugate and Hepatitis B vaccine Matthew Lemus DO Work Phone: [facility] 1995 haemophilus influenz ae type b vaccine, conjugate unspecified formulation Matthew Lemus DO Work Phone: [facility] 1995 hepatitis B vaccine, adult dosage Matthew Lemus Work Phone: [facility] Work Phone: 1995 hepatitis B vaccine, unspecified formulation [place], [place] 1997 Hib, unspecified [place], [place] 1997 poliovirus vaccine, inactivated [place], [place] 1997 tetanus toxoid, reduced diphtheria toxoid, and acellular pertussis vaccine, adsorbed Matthew Lemus DO Work Phone: [facility] 1995 trivalent poliovirus vaccine, live, oral Matthew Lemus DO Work Phone: [facility] 1997 diphtheria, tetanus toxoids and acellular pertussis vaccine [place], [place] 1997 diphtheria, tetanus toxoids and acellular pertussis vaccine, unspecified formulation Matthew Lemus DO Work Phone: [facility] 1997 DTaP, unspecified formulation Rishi MARSHALL [facility] 1997 haemophilus influenz ae type b vaccine, HbOC conjugate Matthew Lemus DO Work Phone: [facility] 1997 tetanus toxoid, reduced diphtheria toxoid, and acellular pertussis vaccine, adsorbed Matthew Lemus DO Work Phone: [facility] 1997 trivalent poliovirus vaccine, live, oral Matthew Lemus DO Work Phone: [facility] 1997 diphtheria, tetanus toxoids and acellular pertussis vaccine [facility] [place] [facility] diphtheria, tetanus toxoids and acellular pertussis vaccine, unspecified formulation Matthew Lemus DO Work Phone: [facility] 1997 DTaP, unspecified formulation Rishi MARSHALL [facility] 1997 haemophilus influenz ae type b vaccine, conjugate unspecified formulation Matthew Lemus DO Work Phone: [facility] 1997 Hib, unspecified [facility], [place] 1997 Hib, unspecified formulation Rishimaricel MARSHALL [facility] 1997 poliovirus vaccine, inactivated [facility], [place] 1997 tetanus toxoid, reduced diphtheria toxoid, and acellular pertussis vaccine, adsorbed Matthew Lemus DO Work Phone: [facility] 1997 trivalent poliovirus vaccine, live, oral Matthew Lemus DO Work Phone: [facility] 1997 hepatitis B vaccine, adult dosage Matthew Lemus Work Phone: [facility] Work Phone: 1995 hepatitis B vaccine, pediatric or pediatric/adolescent dosage Rishimaricel MARSHALL [facility] 1997 hepatitis B vaccine, unspecified formulation [facility] [place], [place] 1997 hepatitis B vaccine, adult dosage Matthew Karineoliva Work Phone: [facility] Work Phone: 1995 hepatitis B vaccine, pediatric or pediatric/adolescent dosage Rishi MARSHALL [facility] 1997 hepatitis B vaccine, unspecified formulation [facility], [place] Medications Current Medications Medication Drug Class(es) Dates [...] q24hr, # 21 tab(s), Refills(s) 0, Pharmacy: [facility]/pharmacy #[id number], 165, cm, 05/10/23 11:13:00 EST, Height/Length [...] 2023 11:00pm May 18, 2023 1:58pm levonorgestrel [id number] mg/hr intrauterine system (1 source) Progestin, Progestin-containing [...] 09/04/21 Status: Ordered take 1 capsule by [facility] once daily in the morning phentermine 37.5 [...] 25 mg take 1 tablet by marion every six hours as needed for nausea [...] 30 cap(s), Refills(s) 0, Pharmacy: [facility]/pharmacy #[id number], 165, cm, 12/17/21 8:42:00 EDT, Height/Length [...] 1 capsule by mouth every four hours Dygjebqrgq-Nejmltligxenf-Dgjm (Fioricet) 50-300-40 mg Capsule Discontinued 1 CAP [...] 02, 2023 8:36pm take 1 tablet by [facility] once daily as needed for sleep ALPRAZolam [...] Status: Ordered take 3 tablets by [facility] daily ARIPiprazole (ABILIFY) 5 MG tablet Take 15 mg by mouth daily 0 Active ascorbic acid 250 mg chewable tablet (17 sources) Vitamin C take 2 tablets by [facility] once daily Vitamin C 250 mg chewable [...] 2 tab(s), Refills(s) 0, Pharmacy: [facility]/pharmacy #[id number], 165, cm, 12/17/21 8:42:00 EDT, Height/Length [...] procedure., # 2 cap(s), Refills(s) 0, [facility] [place] [facility], 165, cm, 09/04/21 9:50:00 EDT, Height/Length [...] 2 tab(s), Refills(s) 0, Pharmacy: [facility]/pharmacy #[id number], 165, cm, 12/17/21 8:42:00 EDT, Height/Length [...] Paliperidone Discontinued 6 MG PO Bedtime 15 15 January 11, 2021 11:00pm February 10, [...] 60 mg capsule Indications: Bipolar 1 disorder (CMS-HCC) Take 1 capsule (60 mg total) by [...] with food Orally Twice a day Active Payers Date Payer Category Payer Medicaid [id number] 2015 Unknown BCBS [place] P PO xxxxxxxxxxxx 2015-Present [address] [place] [address] xxxxxxxxxxxx [id number] .[id number] 1997 Unknown [id number] 2.16.840.1.544074.3.579.2.177 1997 Unknown [id number] 2.16.840.1.216060.3.579.2.177 1997 Unknown [id number] 2.16.840.1.830862.3.579.2.175 1997 Unknown [id number] 2.16.840.1.563231.3.579.2.593 1997 Unknown [id number] 2.16.840.1.904783.3.579.2.593 1997 Unknown [id number] 2.16.840.1.658737.3.579.2.593 1997 Unknown [id number] 2.16.840.1.019850.3.579.2.593 1997 Unknown [id number] 2.16.840.1.493201.3.579.2.593 1997 Unknown [id number] 2.16.840.1.281366.3.579.2.593 1997 Unknown [id number] 2.16.840.1.478635.3.579.2.593 1997 Unknown [id number] 2.16.840.1.830556.3.579.2.593 1997 Unknown [id number] 2.16.840.1.864344.3.579.2.593 1997 Unknown [id number] 2.16.840.1.647646.3.579.2.593 1997 Unknown [id number] 2.16.840.1.842470.3.579.2.593 1997 Unknown [id number] 2.16.840.1.474808.3.579.2.593 1997 Unknown [id number] 2.16.840.1.247469.3.579.2.593 1997 Unknown [id number] 2.16.840.1.228848.3.579.2.593 1997 Unknown [id number] 2.16.840.1.904964.3.579.2.593 1997 Unknown [id number] 2.16.840.1.567727.3.579.2.593 1997 Unknown [id number] 2.16.840.1.093582.3.579.2.593 1997 Unknown [id number] 2.16.840.1.272759.3.579.2.593 1997 Unknown [id number] 2.16.840.1.805120.3.579.2.593 1997 Unknown [id number] 2.16.840.1.262675.3.579.2.173 1997 Unknown [id number] 2.16.840.1.124180.3.579.2.173 1997 Unknown [id number] 2.16.840.1.804787.3.579.2.173 1997 Unknown [id number] 2.16.840.1.271046.3.579.2.128 6 1997 Unknown [id number] 2.16.840.1.027837.3.579.2.128 6 1997 Unknown [id number] 2.16.840.1.673542.3.579.2.125 9 1997 Unknown [id number] 2.16.840.1.932954.3.579.2.125 9 1997 Unknown [id number] 2.16.840.1.913551.3.579.2.125 9 1997 Unknown [id number] 2.16.840.1.142668.3.579.2.125 9 1997 Unknown [id number] 2.16.840.1.080631.3.579.2.125 9 1997 Unknown [id number] 2.16.840.1.149973.3.579.2.125 9 1997 Unknown [id number] 2.16.840.1.656902.3.579.2.727 1997 Unknown [id number] 2.16.840.1.318822.3.579.2.727 1997 Unknown [id number] 2.16.840.1.057480.3.579.2.727 1997 Unknown [id number] 2.16.840.1.271350.3.579.2.727 1959 Self-pay [id number] 1959 Unknown [id number] 1959 Unknown [id number] 2..840.1.168417.3.441 1959 Unknown [id number] Unknown [id number] 840.1.870535.3.579.2.531 Unknown [id number] 216840.1.439407.3.579.2.531 Unknown [id number] 216.840.1.610883.3.579.2.531 Unknown [id number] 2840.1.669280.3.579.2.531 Plan of Treatment Date Care Activity Detail Author Start: 09-17-2032 DTaP,Tdap and Td Vaccines (10 - Td or Tdap) DTaP,Tdap and Td Vaccines (10 - Td or Tdap) [facility] Start: 04-09-2026 HIV screen HIV screen [place], [place] Comment on above: Postponed from 2012 (Unavailable) Start: 04-09-2026 HIV screening HIV screen [facility] Comment on above: Postponed from 2012 (Unavailable) Start: 11-10-2025 DTaP/Tdap/Td vaccine (5 - Td or Tdap) DTaP/Tdap/Td vaccine (5 - Td or Tdap) [facility] Start: 11-10-2025 DTaP/Tdap/Td vaccine (6 - Tdap) DTaP/Tdap/Td vaccine (6 - Tdap) [place] Start: 07-07-2024 Adult BMI Screening Adult BMI Screening [facility] Start: 07-07-2024 Depression Screening Depression Screening [facility] Start: 07-07-2024 Tobacco Screening Tobacco Screening [facility] Start: 05-19-2023 [facility] Start: 02-06-2023 [facility] Start: 02-02-2023 Hospital admission [facility] Start: 01-28-2023 COVID-19 Vaccine ( season) COVID-19 Vaccine () [facility] Start: 01-28-2023 Influenza vaccination [facility] Start: 08-09-2022 Lipid panel Lipid panel [facility] Start: 08-09-2022 Transferase alanine amino alt sgpt ALT [facility] Start: 08-09-2022 Transferase aspartate amino ast sgot AST [facility] Start: 06-21-2022 Iv infusion hydration initial 31 min-1 hour IV HYDRATION,INITIAL,31 MINUTES TO 1 HOUR [facility] Start: 06-17-2022 Basic metabolic panel calcium total Chem 8 [employer] [employer] Start: 06-15-2022 Brncdilat rspse spmtry pre&post-brncdilat admn Spirometry with bronchodilator [employer] Start: 05-30-2022 DEPRESSION ASSESSMENT DEPRESSION ASSESSMENT [facility] Start: 05-17-2022 Nitric oxide gas determination FENO [employer] [employer] Start: 04-03-2022 Depression Monitoring Depression Monitoring [facility] Start: 03-29-2022 Gonadotropin chorionic quantitative Beta HCG Quantitative [employer] [employer] Start: 03-17-2022 Gonadotropin chorionic quantitative Beta HCG Quantitative [facility] [employer] Start: 02-10-2022 [facility] Work Phone: Start: 02-04-2022 Assay of thyroid stimulating hormone tsh TSH [employer] Start: 02-04-2022 Blood count complete automated CBC PLATELET COUNT; AUTOMATED [employer] Start: 02-04-2022 Comprehensive metabolic panel Comp [facility] Start: 02-04-2022 Lipid panel Lipid panel [facility] Start: 02-04-2022 Urnls dip stick/tablet rgnt auto w/o microscopy UA [employer] Start: 02-04-2022 Chest PA & LAT [facility] Start: 01-19-2022 Therapeutic prophylactic/dx injection subq/im Sub Q/ IM injection [employer] Start: 12-28-2021 Influenza vaccination Flu vaccine (#1) [facility] Start: 12-23-2021 Skin test tuberculosis intradermal PPD (Skin test; tuberculosis, intradermal) [facility] Start: 07-29-2021 COVID-19 Vaccine (3 - Booster for Pfizer series) COVID-19 Vaccine (3 - Booster for Pfizer series) [facility] Start: 05-12-2021 COVID-19 Vaccine (5 - Booster) COVID-19 Vaccine (5 - Booster) [facility]A CHAU [facility] Start: 03-03-2020 End: 03-03-2020 Office Visit 03/03/2020 Office Visit Urology Jose Lala MD [address], [address] [place], [place] [id number] [facility] Start: 02-07-2020 Chlamydia screen Chlamydia screen [place], [place] Start: 02-07-2020 Screening for Chlamydia trachomatis Chlamydia screen [facility] Start: 01-29-2020 Influenza vaccination [place] Start: 11-04-2019 Chlamydia screen Chlamydia screen [place] Start: 10-05-2019 End: 10-05-2019 Hospital Encounter [facility] Comment on above: EGD ESOPHAGOGASTRODUODENOSCOPY Start: 02-20-2019 End: 02-20-2019 Office Visit 02/20/2019 Office Visit 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, 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[employer] [address] [place] [id number] [facility] Start: 02-08-2019 End: 02-08-2019 Appointment 02/08/2019 Appointment Radiology [facility] Start: 01-28-2019 Influenza vaccination Flu vaccine (#1) [place] Start: 2018 Cervical cancer screen Cervical cancer screen [place] Start: 2018 PAP TESTING PAP TESTING [facility] Start: 2018 Screening for malignant neoplasm of cervix [facility] Start: 2016 Urine microalbumin profile DTAP,TDAP,TD (1 - Tdap) [facility] Start: 2015 Adult BMI Follow Up Plan Adult BMI Follow Up Plan [facility] Start: 2015 Hepatitis C screening Hepatitis C screen [facility] Start: 2015 HEPATITIS C SCREENING HEPATITIS C SCREENING [facility] Start: 2015 HIV SCREENING HIV SCREENING [facility] Start: 02-05-2014 Varicella vaccine (2 of 2 - 13+ 2-dose series) Varicella vaccine (2 of 2 - 13+ 2-dose series) [facility] Start: 2012 HPV vaccine (1 - Female 3-dose series) HPV vaccine (1 - Female 3-dose series) [place] Start: 2011 PEDS TO ADULT TRANSITION ANNUAL ASSESSMENT PEDS TO ADULT TRANSITION ANNUAL ASSESSMENT [facility] Start: 2010 Varicella Vaccine (1 of 2 - 13+ 2-dose series) Varicella Vaccine (1 of 2 - 13+ 2-dose series) [place] Start: 2009 PEDS TO ADULT TRANSITION INITIAL DISCUSSION PEDS TO ADULT TRANSITION INITIAL DISCUSSION [facility] Start: 2008 HPV vaccine (1 - 2-dose series) HPV vaccine (1 - 2-dose series) [facility] Start: 2006 HPV VACCINE (1 - 2-dose series) HPV VACCINE (1 - 2-dose series) [facility] Start: 2003 Pneumococcal 0-64 years Vaccine (1 - PCV) Pneumococcal 0-64 years Vaccine (1 - PCV) [facility] Start: 2003 Pneumococcal 0-64 years Vaccine (1 of 1 - PPSV23) Pneumococcal 0-64 years Vaccine (1 of 1 - PPSV23) [place] Start: 1998 Varicella vaccine (1 of 2 - 2-dose childhood series) Varicella vaccine (1 of 2 - 2-dose childhood series) [place] Start: 1997 COVID-19 VACCINE (#1) COVID-19 VACCINE (#1) [facility] Start: 1997 HEPATITIS B (1 of 3 - 3-dose series) HEPATITIS B (1 of 3 - 3-dose series) [facility] End: 01-15-2019 Bacteria identified Cx Nom (U) Urine Culture Microbiology Routine Dysuria Gross hematuria 1 Occurrences starting 01/15/2019 until 01/15/2019 [place] Comment on above: 1 Occurrences starting 01/15/2019 until 01/15/2019 End: 02-06-2019 C.trachomatis N.gonorrhoeae DNA, Urine C.trachomatis N.gonorrhoeae DNA, Urine Microbiology Routine Gross hematuria Urgency of urination 1 Occurrences starting 02/06/2019 until 02/06/2019 [place] Comment on above: 1 Occurrences starting 02/06/2019 until 02/06/2019 C.trachomatis N.gono rrhoeae DNA, Urine C.trachomatis N.gonorrhoeae DNA, Urine Microbiology Routine Gross hematuria Urgency of urination 02/06/2019 12:22 PM EDT [place] COVID-19 [facility] [place] End: 10-02-2019 COVID-19 COVID-19 Lab Routine One Time for 1 Occurrences starting 10/02/2019 until 10/02/2019 [place] Comment on above: One Time for 1 Occurrences starting 09/2019 until 10/02/2019 End: 03-07-2020 COVID-19 Ambulatory COVID-19 Ambulatory Lab Routine Acute frontal sinusitis, recurrence not specified 1 Occurrences starting 03/07/2020 until 03/07/2020 [place] Comment on above: 1 Occurrences starting 03/07/2020 until 03/07/2020 COVID-19 Ambulatory COVID-19 Amb ulatory Lab Routine Acute frontal sinusitis, recurrence not specified 03/07/2020 11:12 AM EDT [place] End: 03-16-2020 COVID-19, PCR COVID-19, PCR Lab Routine One Time for 1 Occurrences starting 03/16/2020 until 03/16/2020 [place] Comment on above: One Time for 1 Occurrences starting 02/27 until 03/16/2020 End: 03-03-2020 Culture, Urine Culture, Urine Microbiology Routine Gross hematuria 1 Occurrences starting 03/03/2020 until 03/03/2020 [place] Comment on above: 1 Occurrences starting 03/03/2020 until 03/03/2020 Culture, Urine [place] End: 06-30-2022 Culture, Urine [facility] Work Phone: Comment on above: One Time for 1 Occurrences starting 05/2022 until 06/30/2022 H. PYLORI DETECTION [place], [place] Comment on above: Release Upon Ordering for 1 Occurrences starting 10/05/2019 Initiate Oxygen Therapy Protocol Initiate Oxygen Therapy Protocol Respiratory Care Routine Daily until discontinued starting 10/05/2019 [place] Comment on above: Daily until discontinued starting 2019 Patient Education Depression, Ad ult (DC) [facility] DC Instructions [facility] Work Phone: Patient referral [facility] Work Phone: Phase I & II - metered glucose P hase I & II - metered glucose Point of Care Testing Routine As Needed until discontinued starting 10/05/2019 [facility] Comment on above: As Needed until discontinued starting End: 10-05-2019 POC Urine Qual POC Urine Qual Point of Care Testing Routine One Time for 1 Occurrences starting 10/05/2019 until 10/05/2019 [facility] Comment on above: One Time for 1 Occurrences starting 12/2019 until 10/05/2019 Surgical Pathology Surgical Path ology Lab Routine Release Upon Ordering for 1 Occurrences starting 10/05/2019 [facility] [place] Comment on above: Release Upon Ordering for 1 Occurrences starting 10/05/2019 End: 02-06-2019 Urine culture clean catch Urine culture clean catch Microbiology Routine Gross hematuria Urgency of urination 1 Occurrences starting 02/06/2019 until 02/06/2019 [facility] [place] Comment on above: 1 Occurrences starting 02/06/2019 until 02/06/2019 Urine culture clean catch Urine culture clean catch Microbiology Routine Gross hematuria Urgency of urination 02/06/2019 12:22 PM [facility]T [facility] Active Problems Problem Classification Problem Date [...] Episodic Other aftercare (1 source) Other intermediate card tender (current) drug therapy; Translations: [OTH HALF-WAY CURRENT [...] Translations: [Suicidal ideations] Onset: 02-02-2023 01-08-2021 Episodic Procedures Date Procedure Procedure Detail Performing Clinician Start: 07-07-2023 Adult depression screening assessment Matthew Lemus DO Work Phone: Start: 05-19-2023 Esophagogastroduodenoscopy DO Matthew Marlenyjulien Work Phone: Start: 05-12-2023 Computed tomography of [...] Basic metabolic panel calcium total Ravinder ko Lewis Start: 06-17-2022 Docrev cur meds by [facility] morales mcarthur Start: 06-17-2022 Erythrocyte mean corpuscular volume determination Bridgette Townshend Start: 06-17-2022 Urinalysis, automated Bridgette Debbie Start: 06-15-2022 Docrev cur meds by umair Stafford Start: 06-15-2022 Spirometry for bronchospasm with prolonged evaluation after bronchodilator Bridgette Debbie Start: 05-17-2022 Docrev cur meds by umair Stafford Start: 05-17-2022 Measurement of nitric oxide Maricel Stafford Start: 03-29-2022 Human chorionic gonadotropin measurement Maricel Stafford Start: 03-17-2022 Human chorionic gonadotropin measurement Bridgette Lewis Start: 02-10-2022 Abdominal aortogram DO Matthew Lemus Work Phone: Start: 02-09-2022 Docrev cur meds by [facility] morales de la vega Start: 02-04-2022 Comprehensive metabolic panel Kaleigh camp Start: 02-04-2022 Erythrocyte mean corpuscular volume determination Kaleigh Guevara Start: 02-04-2022 Lipid panel Kaleigh Guevara Start: 02-04-2022 Radiologic exam chest 2 views Bridgette sanford Start: 02-04-2022 Thyroid stimulating hormone measurement Kaleigh Guevara Start: 02-04-2022 Urinalysis, automated Kaleigh Guevara Start: 01-29-2022 Docrev cur meds by [facility] clin Bridgette mcarthur Start: 01-19-2022 Docrev cur meds by eli clin Bridgette mcarthur Start: 01-19-2022 Ketorolac tromethamine inj Bridgette Mak tts Start: 01-19-2022 Therapeutic prophylactic/dx injection subq/im Bridgette Lewis Start: 01-05-2022 Skin test for tuberculosis, Bhumika test Start: 12-23-2021 Skin test for tuberculosis, Bhumika test Start: 10-12-2021 Gonadotropin chorionic quantitative Matthew Lemus Work Phone: Start: 10-11-2021 Ct abdomen & pelvis w/contrast material [facility] Work Phone: Start: 10-11-2021 Assay of lipase [facility] [place] [facility] Work Phone: Start: 10-11-2021 Urinalysis microscopic only [facility] Work Phone: Start: 10-11-2021 Urine test visual color cmprsn meths [facility] [place] [facility] Work Phone: Start: 09-29-2021 Cystoscopy Rishi MARSHALL Start: 03-16-2020 Radiologic exam chest single view Neal Parisi Work Phone: Start: 03-03-2020 Urnls dip stick/tablet reagent auto microscopy Venancio Delgado Work Phone: Start: 10-12-2019 Hepatobil syst imag inc gb w/pharma intervenj TOÑO BLANC Start: 10-12-2019 Hepatobil syst imag inc gb w/pharma intervenj [facility] Work Phone: Start: 10-05-2019 DISCHARGE PATIENT TOÑO [...] Blanc Work Phone: Start: 10-02-2019 COVID-19 BRIANA RUBIO Start: 10-02-2019 COVID-19 BrianRojelio Rubio Work Phone: Start: 02-08-2019 Radiologic exam abdomen 1 view Usha Damico Work Phone: Start: 02-06-2019 Urnls dip stick/tablet reagent auto microscopy Usha Damico Work Phone: Start: 02-06-2019 Smr prim src wet mount nfct agt Usha Damico Work Phone: Endometrial ablation Rishi MARSHALL Esophagogastroduoden oscopy gastric outlet reduction Rishi MARSHALL Results Test Name Value Interpretation Reference Range Facility RAD - CT Reporton 05-25-2023 RAD - CT Report [id number] #1.00TIFF Normal [facility] HCG ( test) IAedgardoi d Ql (U)Ordered By: Fany Ceballos on 05-19-2023 HCG ( test) Ql (U) Negative [facility] HCG,Urineon 05-19-2023 Beta HCG ( test) Ql (U) Negative Normal [facility] Comment on above: Result Comment: PERF ORMED BY: [address] [place] [id number] PATHOLOGIST [employer]ORY MOISES VELASCO M.D. Performed By: #### U HCG #### [place] [id number] [facility] 05-19-2023 L Specimen: [id number] Received: 05/20/23 Status: RUDY Danyelle Num: [id number] Spec Type: Surgical Subm Dr: Fany Ceballos MD Tissues: A Duodenum - Biopsy (DUODENAL BX) B Esophagus Biopsy (ESOPHAGUS BX) Procedures: HE/Demetria, Gross/Micro L4/2 Age/ Patient Sex Location Account Attending Physician Lulú Gaitan 28/F [id number] Fany Ceballos MD SPEC NUM: [id number] RECD: 05/20/23 STATUS: RUDY [place]OVER NUM: [id number] PIHLIP: 05/19/23- [facility] DR: Fany Ceballos MD ENTERED: 05/20/[address] [facility] [address]: SPEC TYPE: Surgical DEPT: [...] submitted in one cassette labeled B1. Specimen: [id number] Received: 05/20/23 Status: RUDY Lopezhetal Num: [id number] Spec Type: Surgical Subm Dr: Fany Ceballos MD Tissues: A Duodenum - Biopsy (DUODENAL BX) B Esophagus Biopsy (ESOPHAGUS BX) Procedures: HE/4, Gross/Micro L4/2 Patient: Lulú Gaitan [id number] (Continued) Specimen: [id number] Received: 05/20/23 (Continued) Signed (signature on file) Cielo Trimble MD 05/24/232300 Specimen: [id number] Received: 05/20/23 Status: RUDY [place] Num: [id number] Spec Type: Surgical Subm Dr: Fany Ceballos MD Tissues: A Duodenum - Biopsy (DUODENAL BX) B Esophagus Biopsy (ESOPHAGUS BX) Procedures: KATELYNN/Demetria, Gross/Micro L4/2 Patient: Lulú Gaitan [id number] (Continued) Specimen: [id number] Received: 05/20/23 (Continued) Microscopic Description A. Two H E slides reviewed. The microscopic examination confirms the diagnosis. B. Two H E slides reviewed. The microscopic examination confirms the diagnosis. CPT Codes 59414b7 Specimen: [id number] Received: 05/20/23 Status: RUDY [place] Num: [id number] Spec Type: Surgical Subm Dr: Fany Ceballos MD Tissues: A Duodenum - Biopsy (DUODENAL BX) B Esophagus Biopsy (ESOPHAGUS BX) Procedures: HE/4, Gross/Micro L4/2 Patient: Lulú Gaitan [id number] (Continued) Signed (signature on file) Cielo Trimble MD 05/24/23 4069 [facility] CT abdomen pelvis w [facility] CT abdomen pelvis w [facility] [place] [address] CT Scan Report Signed Patient: Lulú Gaitan MR#: [id number] 4 : 1995 Acct:[id number] Age/Sex: 28 / F ADM Date: 05/12/23 Loc: CT Room: Type: [facility] Attending Dr: Fany Ceballos MD Copies to: [...] Pham Jr., D.O.05/12/2023 10:29 AM Dictation Location: [place] [address] Transcribed By: [facility] 05/12/23 1029 Dictated By: Samy Pham Jr, DO 05/12/23 1023 Signed By: 05/12/23 1029 [facility] Consent for Procedure/Surger [facility] 05-11-2023 Consent for Procedure/Surgery [id number]#1.00TIFF [facility] Ambulatory Visit Summaryon 1 07-11-2022 Ambulatory [...] DEVLIN, Rishi Ghosh Where: [facility] Amira Sunshine [facility] Patient Educationon 05-10-20 Patient Education Urology [...] these instructions at home: Medicines ? Take ipzu-prk-oqsommt and prescription medicines only as told by [...] the blood stops without treatment. ? Take kxqr-qep-bqrnawk and prescription medicines only as told by your health care provider. ? Drink enough fluid to keep your urine pale yellow. This information is not intended to replace advice given to you by your health care provider. Make sure you discuss any questions you have with your health care provider. Document Revised: 01/14/2021 Document Reviewed: 01/14/2021 [employer] Patient Education ? 2022 [employer] Jong [facility] Urology Office/Clinic Noteon 05-10-2023 Urology [...] Bactrim x 3 days empirically. went to [place] ER next day bc blood persisted. CT [...] Follow-up With When Contact Information ROLANDO DEVLIN, MOHINI Esparza In 4 months [facility] [address], [place] [address]- Additional Instructions: w/PVR Patient Education Hematuria, Adult I, Johana De Jesus , personally scribed for Dr. Marshall on 05/10/2023 11:52:58. . Portions of this record may have been created with voice recognition artificial intelligence software, specifically [employer], [employer] and or [employer]. Substitutions may have occurred due to the [...] Daily busPIRon (more content not included)... Normal [facility] Comment on above: Result Comment: Elec tronically Signed By: Rishi MARSHALL MD\.br\Date and Time Signed: 05/10/23 11:55 EST\.br\Electronically Co-Signed By: Johana De Jesus\.br\Date and Time Co-Signed: 05/10/23 11:53 EST RAD - MISCon 04-26-2023 RAD - MISC [id number]# 1.00TIFF [facility] Lab Reportson 04-15-2023 Lab Reports [id number]# 1.00TIFF [facility] Operative Reporton Operative Report [id number] #1.00TIFF [facility] Lab Reportson 04-08-2023 Lab Reports [id number] #1.00TIFF [facility] Insurance Correspondenceon 1 05-30-2022 Insurance Correspondence [id number]#1.00TIFF [facility] Consent for Procedure/Surger yon 03-24-2023 Consent for Procedure/Surgery [id number]#1.00TIFF [facility] CT ABDOMEN PELVIS W IV CONTR [...] Jennie Hernández MD 03/11/23 Final result Normal [facility] Cult,Urineon 03-11-2023 Cult,Urine Specimen Description .CLEAN CATCH URINE Culture NO SIGNIFICANT GROWTH Report Status FINAL 03/11/2023 Normal [facility] Comment on above: Performed By: #### U RC #### [place] [address] [place] [address] Physician [facility]: Omar Segundo MD [address] [place] [address] [facility]: Cholo Alicea MD CBC with Diffon 03-10-2023 Abs. Basophil 0.05 k/uL Normal 0.00-0.20 [facility] Comment on above: Performed By: #### C ANTONIA LIU, CK #### [address] [place] [address] [facility]: Cholo Alicea MD Abs.Imm.Granulocyte <0.03 Normal 0.00-0.30 [facility] Comment on above: Performed By: #### C ANTONIA LIU, CK #### [address] [place], [place] [address]83 [facility]: Cholo Alicea MD Abs.Neutrophil (Seg) 3.36 k/uL Normal 1.50-8.10 [facility] Comment on above: Performed By: #### C DP, CP, CK #### [address] [place], [facility]: Cholo Alicea MD Basophils/100 WBC (Bld) 1 % Normal 0-2 [facility] Comment on above: Performed By: #### C DP, CP, CK #### [address] [place], [place] [address] [facility]: Cholo Alicea MD Eosinophils (Bld) [#/Vol] 0.05 10*3/uL Normal 0.00-0.44 [facility] Comment on above: Performed By: #### C DP, CP, CK #### [address] [place], [facility]: Cholo Alicea MD Eosinophils/100 WBC (Bld) 1 % Normal 1-4 [facility] Comment on above: Performed By: #### C DP, CP, CK #### [address] [place], [facility]: Cholo Alicea MD Erythrocyte distribution width (RBC) [Ratio] 11.9 % Normal 11.8-14.4 [facility] Comment on above: Performed By: #### C DP, CP, CK #### [address] [place], [facility]: Cholo Alicea MD Hematocrit (Bld) [Volume fraction] 37.5 % Normal 36.3-47.1 [facility] Comment on above: Performed By: #### C DP, CP, CK #### [address] [place], [facility]: Cholo Alicea MD Hemoglobin (Bld) [Mass/Vol] 12.9 g/dL Normal 11.9-15.1 [facility] Comment on above: Performed By: #### C ALEXA CP, CK #### [facility] [address] [place] [address] [facility]: Cholo Alicea MD Immature granulocytes/100 WBC (Bld) 0 % Normal 0 [facility] Comment on above: Performed By: #### C DP, CP, CK #### [facility] [address] [place], [place] [address]83 [facility]: Cholo Alicea MD Lymphocytes (Bld) [#/Vol] 2.79 10*3/uL Normal 1.10-3.70 [facility] Comment on above: Performed By: #### C ALEXA CP, CK #### [address] [place], [facility]: Cholo Alicea MD Lymphocytes/100 WBC (Bld) 42 % Normal 24-43 [facility] Comment on above: Performed By: #### C ALEXA CP, CK #### [address] [place], [facility]: Cholo Alicea MD MCH (RBC) [Entitic mass] 30.4 pg Normal 25.2-33.5 [facility] Comment on above: Performed By: #### C DP, CP, CK #### [address] [place] [address] [facility]: Cholo Alicea MD MCHC (RBC) [Mass/Vol] 34.4 g/dL Normal 28.4-34.8 [facility] Comment on above: Performed By: #### C ALEXA CP, CK #### [address] [place], [place] [id number] [facility]: Cholo Alicea MD MCV (RBC) [Entitic vol] 88.2 fL Normal 82.6-102.9 [facility] Comment on above: Performed By: #### C ANTONIA LIU, CK #### [facility] [address] [place] [address] [facility]: Cholo Alicea MD Monocytes (Bld) [#/Vol] 0.46 10*3/uL Normal 0.10-1.20 [facility] Comment on above: Performed By: #### C ALEXA CP, CK #### [address] [place] [address] [facility]: Cholo Alicea MD Monocytes/100 WBC (Bld) 7 % Normal 3-12 [facility] Comment on above: Performed By: #### C ANTONIA LIU, CK #### [address] [place], [place] [address] [facility]: Cholo Alicea MD Neutrophil (Seg) 49 % Normal 36-65 [facility] Comment on above: Performed By: #### C ANTONIA LIU, CK #### [address] [place] [address] [facility]: Cholo Alicea MD NRBC Automated 0.0 per 100 WBC Normal 0.0 [facility] Comment on above: Performed By: #### C ANTONIA LIU, CK #### [address] [place], [facility]83 [facility]: Cholo Alicea MD Platelet mean volume (Bld) [Entitic vol] 10.5 fL Normal 8.1-13.5 [facility] Comment on above: Performed By: #### C ANTONIA LIU, CK #### [address] [place], [place] [address]83 [facility]: Cholo Alicea MD Platelets (Bld) [#/Vol] 320 10*3/uL Normal 138-453 [facility] Comment on above: Performed By: #### C DP, CP, CK #### [facility] [address] [place], [place] [id number] [facility]: Cholo Alicea MD RBC (Bld) [#/Vol] 4.25 10*6/uL Normal 3.95-5.11 [facility] Comment on above: Performed By: #### C DP, CP, CK #### [facility] [address] [place], [place] [id number] [facility]: Cholo Alicea MD WBC (Bld) [#/Vol] 6.7 10*3/uL Normal 3.5-11.3 [facility] Comment on above: Performed By: #### C DP CP, CK #### [facility] [address] [place], [place] [id number] [facility]: Cholo Alicea MD Comp Metabolic Profon 2022 Albumin [Mass/Vol] 4.6 g/dL Normal 3.5-5.2 [facility] Comment on above: Performed By: #### C ALEXA CP, CK #### [facility] [address] [place], [place] [address]83 [facility]: Cholo Alicea MD Albumin/Glob Ratio 1.5 Normal 1.0-2.5 [facility] Comment on above: Performed By: #### C ALEXA CP, CK #### [facility] [address] [place], [place] 56[address]83 [facility]: Cholo Alicea MD Alkaline Phos 72 U/L Normal 35-104 [facility] Comment on above: Performed By: #### C ALEXA CP, CK #### [facility] [address] [place] [address] [facility]: Cholo Alicea MD ALT [Catalytic activity/Vol] 42 U/L High 5-33 [facility] Comment on above: Performed By: #### C DP, CP, CK #### [facility] [address] [place], [place] [address]296883 [facility]: Cholo Alicea MD Anion gap [Moles/Vol] 11 mmol/L Normal 9-17 [facility] Comment on above: Performed By: #### C DP, CP, CK #### [facility] [address] [place], [place] [address]388183 [facility]: Cholo Alicea MD AST [Catalytic activity/Vol] 31 U/L Normal <32 [facility] Comment on above: Performed By: #### C DP, CP, CK #### [facility] [address] [place], [place] [address]83 [facility]: Cholo Alicea MD Bilirubin [Mass/Vol] 0.4 mg/dL Normal 0.3-1.2 [facility] Comment on above: Performed By: #### C DP, CP, CK #### [facility] [address] [place] [address] [place], [place] 3893783 [facility]: Cholo Alicea MD BUN/CRE Ratio 10 Normal 9-20 [facility] Comment on above: Performed By: #### C DP, CP, CK #### [address] [place], [place] 5192683 [facility]: Cholo Alicea MD Calcium [Mass/Vol] 10.4 mg/dL Normal 8.6-10.4 [facility] Comment on above: Performed By: #### C DP, CP, CK #### [facility] [address] [place], [place] [address]83 [facility]: Cholo Alicea MD Chloride [Moles/Vol] 101 mmol/L Normal 98-107 [facility] Comment on above: Performed By: #### C DP, CP, CK #### [facility] [address] [place] [address] [place], [place] 6215183 [facility]: Cholo Alicea MD CO2 [Moles/Vol] 26 mmol/L Normal 20-31 [facility] Comment on above: Performed By: #### C DP CP, CK #### [facility] [address] [place] [address] [facility]: Cholo Alicea MD Creatinine [Mass/Vol] 0.9 mg/dL Normal 0.5-0.9 [facility] Comment on above: Performed By: #### C DP, CP, CK #### [facility] [address] [place] [address] [facility]: Cholo Alicea MD GFR/1.73 sq M.predicted among non-blacks MDRD (S/P/Bld) [Vol rate/Area] mL/min/{1.73_m2} Normal >60 [facility] Comment on above: Result Comment: These [...] By: #### C DP CP, CK #### [facility] [address] [place] [address] [facility]: Cholo Alicea MD Glucose [Mass/Vol] 97 mg/dL Normal 70-99 [facility] Comment on above: Performed By: #### C DP CP, CK #### [facility] [address] [place] [address] [facility]: Cholo Alicea MD Potassium [Moles/Vol] 4.2 mmol/L Normal 3.7-5.3 [facility] Comment on above: Performed By: #### C DP CP, CK #### [facility] [address] [place] [address] [facility]: Cholo Alicea MD Protein [Mass/Vol] 7.6 g/dL Normal 6.4-8.3 [facility] Comment on above: Performed By: #### C DP, CP, CK #### [facility] [address] [place], [place] [address] [facility]: Cholo Alicea MD Sodium [Moles/Vol] 138 mmol/L Normal 135-144 [facility] Comment on above: Performed By: #### C DP, CP, CK #### [facility] [address] [place] [address] [facility]: Cholo Alicea MD Urea nitrogen [Mass/Vol] 9 mg/dL Normal 6-20 [facility] Comment on above: Performed By: #### C DP, CP, CK #### [facility] [address] [place], [place] 650[address]83 [facility]: Cholo Alicea MD Creatine Kinaseon 03-10-2023 CK [Catalytic activity/Vol] 51 U/L Normal 26-192 [facility] Comment on above: Performed By: #### C DP, CP, CK #### [facility] [address] [place] [address] [facility]: Cholo Alicea MD HCG, ,Urineon 03-10 Beta HCG ( test) Ql (U) Negative Normal NEG [facility] Comment on above: Result Comment: Spec imens with hCG levels near the threshold of the test (25 mIU/mL) may give a negative or indeterminate result. In such cases, another test should be performed with a new specimen in 48-72 hours. If early is suspected clinically in this setting, correlation with quantitative serum b-hCG level is suggested. [facility] has confirmed the use of plasma for this test. This has not been cleared or approved by the U.S. Food and Drug Administration. The FDA has determined that such clearance is not necessary. Performed By: #### U HCG, UAMIC #### [facility] [address] [place], [place] 99[address]83 [facility]: Cholo Alicea MD Urinalysis w/ Microon 2022 Bacteria TRACE Abnormal NONE [facility] Comment on above: Performed By: #### L IP, CDP, CP #### [facility] [address] [place] [address] [place], [place] 8187583 [facility]: Cholo Alicea MD Bilirubin, SemiQt,Ur Negative Normal NEG [facility] Comment on above: Performed By: #### L IP, CDP, CP #### [address] [place], [place] [address]36183 [facility]: Cholo Alicea MD Blood, Urine Negative Normal NEG [facility] Comment on above: Performed By: #### L IP, CDP, CP #### [address] [place], [place] 0177683 [facility]: Cholo Alicea MD Clarity (U) Clear Normal CLEAR [facility] Comment on above: Performed By: #### L IP, CDP, CP #### [address] [place], [place] [address]83 [facility]: Cholo Alicea MD Color (U) Yellow Normal YEL [facility] Comment on above: Performed By: #### L IP, CDP, CP #### [address] [place], [place] [address]283 [facility]: Cholo Alicea MD Epithelial cells LM Ql (Urine sed) 0 TO 2 Normal 0-25 [facility] Comment on above: Performed By: #### L IP, CDP, CP #### [address] [place], [place] [address]87[address]83 [facility]: Cholo Alicea MD Glucose Ql (U) Negative Normal NEG [facility] Comment on above: Performed By: #### L IP, CDP, CP #### [facility] [address] [place], [place] 675[address]83 [facility]: Cholo Alicea MD Ketones Ql (U) Negative Normal NEG [facility] Comment on above: Performed By: #### L IP, CDP, CP #### [facility] [address] [place] [address] [facility]: Cholo Alicea MD Leukocyte esterase Test strip Ql (U) Negative Normal NEG [facility] Comment on above: Performed By: #### L IP, CDP, CP #### [facility] [address] [place], [place] [address]33[address]83 [facility]: Cholo Alicea MD Nitrite,Ur Negative Normal NEG [facility] Comment on above: Performed By: #### L IP, CDP, CP #### [facility] [address] [place] [address] Dr[place], [facility]: Cholo Alicea MD PH,Ur 7.5 Normal 5.0-9.0 [facility] Comment on above: Performed By: #### L IP, CDP, CP #### [address] [place] [address] [facility]: Cholo Alicea MD Protein Ql (U) Negative Normal NEG [facility] Comment on above: Performed By: #### L IP, CDP, CP #### [facility] [address] [place] [address] [place], [place] 9322683 [facility]: Cholo Alicea MD Spec. [place],Ur 1.010 Normal 1.010-1.020 [facility] Comment on above: Performed By: #### L IP, CDP, CP #### [facility] [address] [place], [place] [address]01683 [facility]: Cholo Alicea MD Urine RBC's None Normal 0-2 [facility] Comment on above: Performed By: #### L IP, CDP, CP #### [facility] [address] [place] [address] [facility]: Cholo Alicea MD Urine WBC's 0 TO 2 Normal 0-5 [facility] Comment on above: Performed By: #### L IP, CDP, CP #### [facility] [address] [place] [address] [facility]: Cholo Alicea MD Urobilinogen,Ur Normal Normal 0.0-1.0 [facility] Comment on above: Performed By: #### L IP, CDP, CP #### [facility] [address] [place] [address] [facility]: Cholo Alicea MD COVID + FLU Quick Testingon 02-11-2023 SARS-CoV-2 (COVID-19) RNA ALEKSANDER+probe Ql (Unsp spec) Negative [facility] [employer] Other COVID + FLU Quick Testing Negative [employer] [facility] [employer] Other Quick Strepon 02-11-2023 S. pyogenes Org specific cx Ql (Throat) Negative [facility] [employer] Other Quick Strep [employer] [facility] [employer] Other [employer] 02-03-2023 zervedN Telephone (GASTSP) LULÚ GAITAN ([id number]) 1995 F Date Time Provider Department 02/03/23 CHRISTINE MACIAS [facility] During your visit today, we recorded the following information about you: Viviana David 02/03/2023 3:38 PM Signed ----- Message from Rizwana Smallwood sent at 02/01/2023 3:13 PM EDT ----- Regarding: Delayed Gastric Emptying No patient name on file. is being referred to or the Gastroparesis clinic. Referring Physician: Dr. Matthew milton Has the patient had a Gastric Emptying Study? Yes Which facility or hospital was the Gastric Emptying Study done at (please list full name of hospital or facility)? [facility] If the patient had a gastric [...] G/J Tube?No Preferred phone number for contact: [phone] ? Viviana David 02/03/2023 3:38 PM Signed [...] Status:Closed by VIVIANA DAVID on 02/04/23 Normal [facility] ECG 12 lead ECGon 02-03-2023 ECG 12 lead ECG [facility] [place] [address] [place] [address] Electrocardiograph Report Signed Patient: Lulú Gaitan MR#: [id number] 4 : 1995 Acct:[id number] Age/Sex: 27 / F ADM Date: 02/02/23 Loc: Room: [address] [place] [address] Type: ADM IN Attending Dr: Karri Kamara [...] was found Confirmed by CHARLES MAURO MD (Santiago) on 02/04/2023 1:19:28 PM Referred By: Electronically Signed By:CHARLES MAURO MD Transcribed By: MUS Signed By Charles Mauro MD 0 02/04/23 1319 Normal [facility] Alanine aminotransferase [En zymatic activity/volume] in Serum or PlasmaOrdered By: Matthew Leslie on 02-02-2023 ALT [Catalytic activity/Vol] 38 U/L 7-52 [facility] Albumin [Mass/volume] in Ser um or Plasma by Bromocresol green (BCG) dye binding methoOrdered By: Matthew Leslie on 02-02-2023 Albumin BCG dye [Mass/Vol] 4.6 g/dL 3.5-5.7 [facility] Alkaline phosphatase [Enzyma tic activity/volume] in Serum or PlasmaOrdered By: Matthew Leslie on 02-02-2023 ALP [Catalytic activity/Vol] 54 U/L 34-104 [facility] Amphetamine Screen Ql (U)Ord ered By: Matthew Leslie on 02-02-2023 Amphetamines Ql (U) Negative Negative [facility] Aspartate aminotransferase [ Enzymatic activity/volume] in Serum or PlasmaOrdered By: Matthew Leslie on 02-02-2023 AST [Catalytic activity/Vol] 32 U/L 13-39 [facility] Automated erythrocytes count in urine sediment (number/area)Ordered By: Matthew Leslie on 02-02-2023 RBC Auto (Urine sed) [#/Area] 10-19 [HPF] 0-4 [facility] Automated leukocytes count i n urine sediment (number/area)Ordered By: Matthew Leslie on 02-02-2023 WBC Auto (Urine sed) [#/Area] 10-19 [HPF] 0-4 [facility] Automated urine hyaline cast s count (number/volume)Ordered By: Matthew Leslie on 02-02-2023 Hyaline casts Auto (U) [#/Vol] 0-1 [LPF] 0-1 [facility] Barbiturates [Presence] in U rine by Screen methodOrdered By: Matthew Leslie on 02-02-2023 Barbiturates Screen Ql (U) Negative Negative [facility] Basophils Auto (Bld) [#/Vol] Ordered By: Matthew Leslie on 02-02-2023 Basophils (Bld) [#/Vol] 0.1 10*3/uL 0.0-0.2 [facility] Basophils/100 WBC Auto (Bld) Ordered By: Matthew Leslie on 02-02-2023 Basophils/100 WBC (Bld) 0.9 % . [facility] Benzodiazepines Screen Ql (U )Ordered By: Matthew Leslie on 02-02-2023 Benzodiazepines Ql (U) Negative Negative [facility] Benzoylecgonine [Presence] i n Urine by Screen methodOrdered By: Matthew Leslie on 02-02-2023 Benzoylecgonine Screen Ql (U) Negative Negative [facility] Bilirubin Test strip Ql (U)O rdered By: Matthew Leslie on 02-02-2023 Bilirubin Ql (U) Negative Negative [facility] Bilirubin.direct [Mass/volum e] in Serum or PlasmaOrdered By: Matthew Leslie on 02-02-2023 Bilirubin.direct [Mass/Vol] 0.10 mg/dL 0.03-0.18 [facility] Bilirubin.total [Mass/volume ] in Serum or PlasmaOrdered By: Matthew Leslie on 02-02-2023 Bilirubin [Mass/Vol] 0.6 mg/dL 0.3-1.0 [facility] Calcium [Mass/volume] in Ser um or PlasmaOrdered By: Matthew Leslie on 02-02-2023 Calcium [Mass/Vol] 9.5 mg/dL 8.6-10.3 [facility] Cannabinoids [Presence] in U rine by Screen methodOrdered By: Matthew Leslie on 02-02-2023 Cannabinoids Screen Ql (U) Negative Negative [facility] Comment on above: These are unconfirme d results and should not be used for legal purposes. Drug Cut-Off Concentration: AMPH 1000 ng/mL PONCHO 200 ng/mL KRISTAN 200 ng/mL COCM 300 ng/mL OP 300 ng/mL PCP 25 ng/mL THC 20 ng/mL Carbon dioxide, total [Moles /volume] in Serum or PlasmaOrdered By: Matthew Leslie on 02-02-2023 CO2 [Moles/Vol] 28.3 mmol/L 21.0-31.0 [facility] Casts typing in urine sedime nt by light microscopyOrdered By: Matthew Leslie on 02-02-2023 Casts LM Nom (Urine sed) None seen [LPF] None Seen [facility] Chloride [Moles/volume] in S barbra or PlasmaOrdered By: Matthew Leslie on 02-02-2023 Chloride [Moles/Vol] 107 mmol/L 98-107 [facility] Color Auto (U)Ordered By: Mariela Leslie on 02-02-2023 Color (U) Yellow Yellow [facility] Complete Blood Count Auto Di ffon 02-02-2023 Basophils (Bld) [#/Vol] 0.1 10*3/uL Normal 0.0-0.2 [facility] Comment on above: Result Comment: PERF ORMED BY: [facility] [address] [place] [address] PATHOLOGIST [employer] MOISES VELASCO M.D. Performed By: #### E TANYA, HEPATIC, TSH3 wRFLX, CBC, CMP, [id number] #### [facility] [address] Basophils/100 WBC (Bld) 0.9 % Normal . [facility] Comment on above: Performed By: #### E TANYA, HEPATIC, TSH3 wRFLX, CBC, CMP, [id number] #### [address] Eosinophils (Bld) [#/Vol] 0.0 10*3/uL Normal 0.0-0.45 [facility] Comment on above: Performed By: #### E TANYA, HEPATIC, TSH3 wRFLX, CBC, CMP, [id number] #### [address] Eosinophils/100 WBC (Bld) 0.4 % Normal . [facility] Comment on above: Performed By: #### E TANYA, HEPATIC, TSH3 wRFLX, CBC, CMP, [id number] #### [address] Erythrocyte distribution width (RBC) [Ratio] 12.9 % Normal 11.9-15.3 [facility] Comment on above: Performed By: #### E TANYA, HEPATIC, TSH3 wRFLX, CBC, CMP, [id number] #### [address] Hematocrit (Bld) [Volume fraction] 41.1 % Normal 34.0-46.4 [facility] Comment on above: Performed By: #### E TANYA, HEPATIC, TSH3 wRFLX, CBC, CMP, [id number] #### [address] Hemoglobin (Bld) [Mass/Vol] 13.8 g/dL Normal 11.8-15.4 [facility] Comment on above: Performed By: #### E TANYA, HEPATIC, TSH3 wRFLX, CBC, CMP, [id number] #### [address] Lymphocytes (Bld) [#/Vol] 2.7 10*3/uL Normal 1.00-4.8 [facility] Comment on above: Performed By: #### E TANYA, HEPATIC, TSH3 wRFLX, CBC, CMP, [id number] #### [facility] [address] Lymphocytes/100 WBC (Bld) 36.0 % Normal . [facility] Comment on above: Performed By: #### E TANYA, HEPATIC, TSH3 wRFLX, CBC, CMP, [id number] #### [facility] [address] MCH (RBC) [Entitic mass] 29.4 pg Normal 24.7-34.3 [facility] Comment on above: Performed By: #### E TANYA, HEPATIC, TSH3 wRFLX, CBC, CMP, [id number] #### [address] MCV (RBC) [Entitic vol] 87.6 fL Normal 80-100 [facility] Comment on above: Performed By: #### E TANYA, HEPATIC, TSH3 wRFLX, CBC, CMP, [id number] #### [address] Mean Corpuscular HGB Conc 33.6 g/dL Normal 32.0-35.0 [facility] Comment on above: Performed By: #### E TANYA, HEPATIC, TSH3 wRFLX, CBC, CMP, [id number] #### [address] Monocytes (Bld) [#/Vol] 0.6 10*3/uL Normal 0.0-0.8 [facility] Comment on above: Performed By: #### E TANYA, HEPATIC, TSH3 wRFLX, CBC, CMP, [id number] #### [place] [address] [place] Monocytes/100 WBC (Bld) 17.83 % Normal 0.00-20.00 [facility] Comment on above: Performed By: #### E TANYA, HEPATIC, TSH3 wRFLX, CBC, CMP, [id number] #### [address] Monocytes/100 WBC (Bld) 7.9 % Normal . [facility] Comment on above: Performed By: #### E TANYA, HEPATIC, TSH3 wRFLX, CBC, CMP, [id number] #### [facility] [address] [place] [address] [place] Neutrophils (Bld) [#/Vol] 4.2 10*3/uL Normal 1.8-7.7 [facility] Comment on above: Performed By: #### E TANYA, HEPATIC, TSH3 wRFLX, CBC, CMP, [id number] #### [address] Neutrophils/100 WBC (Bld) 54.8 % Normal . [facility] Comment on above: Performed By: #### E TANYA, HEPATIC, TSH3 wRFLX, CBC, CMP, [id number] #### [address] NRBC% 0.0 /100{WBC} Normal 0-0.5 [facility] Comment on above: Performed By: #### E TANYA, HEPATIC, TSH3 wRFLX, CBC, CMP, [id number] #### [address] Platelet mean volume (Bld) [Entitic vol] 9.2 fL Normal 6.3-10.7 [facility] Comment on above: Performed By: #### E TANYA, HEPATIC, TSH3 wRFLX, CBC, CMP, [id number] #### [facility] [address] [place] [address] [place] Platelets (Bld) [#/Vol] 322 10*3/uL Normal 150-450 [facility] Comment on above: Performed By: #### E TANYA, HEPATIC, TSH3 wRFLX, CBC, CMP, [id number] #### [place] [address] [place] RBC (Bld) [#/Vol] 4.70 10*6/uL Normal 3.60-5.00 [facility] Comment on above: Performed By: #### E TANYA, HEPATIC, TSH3 wRFLX, CBC, CMP, [id number] #### [address] WBC (Bld) [#/Vol] 7.6 10*3/uL Normal 3.8-11.6 [facility] Comment on above: Performed By: #### E TANYA, HEPATIC, TSH3 wRFLX, CBC, CMP, [id number] #### [facility] [address] [place] [address] Comprehensive Metabolic Pane akbar 02-02-2023 Albumin [Mass/Vol] 4.6 g/dL Normal 3.5-5.7 [facility] Comment on above: Performed By: #### U HCG, ADDONUAPLUS, URDS, CUU #### [address] Albumin/Globulin [Mass ratio] 1.4 {ratio} Normal [facility] Comment on above: Performed By: #### U HCG, ADDONUAPLUS, URDS, CUU #### [address] ALP [Catalytic activity/Vol] 54 U/L Normal 34-104 [facility] Comment on above: Performed By: #### U HCG, ADDONUAPLUS, URDS, CUU #### [address] ALT [Catalytic activity/Vol] 38 U/L Normal 7-52 [facility] Comment on above: Performed By: #### U HCG, ADDONUAPLUS, URDS, CUU #### [address] Anion gap [Moles/Vol] 9.5 mmol/L Normal 6.0-15.0 [facility] Comment on above: Performed By: #### U HCG, ADDONUAPLUS, URDS, CUU #### [address] AST [Catalytic activity/Vol] 32 U/L Normal 13-39 [facility] Comment on above: Performed By: #### U HCG, ADDONUAPLUS, URDS, CUU #### [facility] [address] Bilirubin [Mass/Vol] 0.6 mg/dL Normal 0.3-1.0 [facility] Comment on above: Performed By: #### U HCG, ADDONUAPLUS, URDS, CUU #### [facility] [address] [place] [address] Calcium [Mass/Vol] 9.5 mg/dL Normal 8.6-10.3 [facility] Comment on above: Performed By: #### U HCG, ADDONUAPLUS, URDS, CUU #### [address] Chloride [Moles/Vol] 107 mmol/L Normal 98-107 [facility] Comment on above: Performed By: #### U HCG, ADDONUAPLUS, URDS, CUU #### [address] CO2 [Moles/Vol] 28.3 mmol/L Normal 21.0-31.0 [facility] Comment on above: Performed By: #### U HCG, ADDONUAPLUS, URDS, CUU #### [address] Creatinine [Mass/Vol] 1.14 mg/dL Normal 0.60-1.20 [facility] Comment on above: Performed By: #### U HCG, ADDONUAPLUS, URDS, CUU #### [address] Creatinine Clr Calc Pharmacy 76.05 Normal [facility] Comment on above: Result Comment: PERF ORMED BY: [place] [address] PATHOLOGIST [employer] MOISES VELASCO M.D. Performed By: #### U HCG, ADDONUAPLUS, URDS, CUU #### [place] [address] [place] GFR/1.73 sq M.predicted MDRD (S/P/Bld) [Vol rate/Area] mL/min/{1.73_m2} Normal [facility] Comment on above: Performed By: #### U HCG, ADDONUAPLUS, URDS, CUU #### [facility] [address] Globulin (S) [Mass/Vol] 3.2 g/dL Normal [facility] Comment on above: Performed By: #### U HCG, ADDONUAPLUS, URDS, CUU #### [address] Glucose [Mass/Vol] 98 mg/dL Normal 70-100 [facility] Comment on above: Result Comment: [facility] Glucose Reference Range is dependent on time and content of last meal. Glucose of more than 200 mg/dL in a nonstressed, ambulatory subject supports the diagnosis of Diabetes Mellitus. ADA recommended reference range Performed By: #### U HCG, ADDONUAPLUS, URDS, CUU #### [address] Potassium [Moles/Vol] 3.8 mmol/L Normal 3.5-5.1 [facility] Comment on above: Performed By: #### U HCG, ADDONUAPLUS, URDS, CUU #### [address] Protein [Mass/Vol] 7.8 g/dL Normal 6.4-8.9 [facility] Comment on above: Performed By: #### U HCG, ADDONUAPLUS, URDS, CUU #### [address] Sodium [Moles/Vol] 141 mmol/L Normal 136-145 [facility] Comment on above: Performed By: #### U HCG, ADDONUAPLUS, URDS, CUU #### [address] Urea nitrogen [Mass/Vol] 11 mg/dL Normal 7-25 [facility] Comment on above: Performed By: #### U HCG, ADDONUAPLUS, URDS, CUU #### [facility] [address] Creatinine [Mass/volume] in Serum or PlasmaOrdered By: Matthew Leslie on 02-02-2023 Creatinine [Mass/Vol] 1.14 mg/dL 0.60-1.20 [facility] Dipstick and Microscopicon 0 02-02-2023 Appearance (U) Cloudy Critically abnormal Clear [facility] Comment on above: Order Comment: Name Collection Type:: Clean-Voided Midstream Performed By: #### U HCG, ADDONUAPLUS, URDS, CUU #### [facility] [address] [place] [address] Bacteria,Urine 1+ High None Seen [facility] Comment on above: Order Comment: Name Collection Type:: Clean-Voided Midstream Performed By: #### U HCG, ADDONUAPLUS, URDS, CUU #### [facility] [address] [place] [address] Bilirubin,Urine Negative Normal Negative [facility] Comment on above: Order Comment: Name Collection Type:: Clean-Voided Midstream Performed By: #### U HCG, ADDONUAPLUS, URDS, CUU #### [facility] [address] [place] [address] Color (U) Yellow Normal Yellow [facility] Comment on above: Order Comment: Name Collection Type:: Clean-Voided Midstream Performed By: #### U HCG, ADDONUAPLUS, URDS, CUU #### [facility] [address] [place] [address] Glucose Ql (U) Normal Normal Normal [facility] Comment on above: Order Comment: Name Collection Type:: Clean-Voided Midstream Performed By: #### U HCG, ADDONUAPLUS, URDS, CUU #### [facility] [address] [place] [address] [place] Hyaline Casts,Urine 0-1 Normal 0-1 [facility] Comment on above: Order Comment: Name Collection Type:: Clean-Voided Midstream Performed By: #### U HCG, ADDONUAPLUS, URDS, CUU #### [facility] [address] [place] [address] Ketones Ql (U) 2+ High Negative [facility] Comment on above: Order Comment: Name Collection Type:: Clean-Voided Midstream Performed By: #### U HCG, ADDONUAPLUS, URDS, CUU #### [address] Leukocyte esterase Test strip Ql (U) 2+ High Negative [facility] Comment on above: Order Comment: Name Collection Type:: Clean-Voided Midstream Performed By: #### U HCG, ADDONUAPLUS, URDS, CUU #### [address] Nitrite,Urine Negative Normal Negative [facility] Comment on above: Order Comment: Name Collection Type:: Clean-Voided Midstream Performed By: #### U HCG, ADDONUAPLUS, URDS, CUU #### [address] Occult Blood,Urine 3+ High Negative [facility] Comment on above: Order Comment: Name Collection Type:: Clean-Voided Midstream Performed By: #### U HCG, ADDONUAPLUS, URDS, CUU #### [facility] [address] [place] [address] Other Casts,Urine None Seen Normal None Seen [facility] Comment on above: Order Comment: Name Collection Type:: Clean-Voided Midstream Performed By: #### U HCG, ADDONUAPLUS, URDS, CUU #### [facility] [address] [place] [address] pH (U) 6.0 [pH] Normal 5.0-9.0 [facility] Comment on above: Order Comment: Name Collection Type:: Clean-Voided Midstream Performed By: #### U HCG, ADDONUAPLUS, URDS, CUU #### [address] Protein (U) [Mass/Vol] 30 mg/dL High Negative [facility] Comment on above: Order Comment: Name Collection Type:: Clean-Voided Midstream Performed By: #### U HCG, ADDONUAPLUS, URDS, CUU #### [facility] [address] [place] [address] RBC,Urine 10-19 High 0-4 [facility] Comment on above: Order Comment: Name Collection Type:: Clean-Voided Midstream Performed By: #### U HCG, ADDONUAPLUS, URDS, CUU #### [facility] [address] [place] [address] Specificy [place],Urine 1.027 Normal 1.001-1.030 [facility] Comment on above: Order Comment: Name Collection Type:: Clean-Voided Midstream Performed By: #### U HCG, ADDONUAPLUS, URDS, CUU #### [address] Squamous Epithelial Cell,Urine 3-4 High 0-2 [facility] Comment on above: Order Comment: Name Collection Type:: Clean-Voided Midstream Performed By: #### U HCG, ADDONUAPLUS, URDS, CUU #### [address] Urobilinogen,Urine Normal Normal Normal [facility] Comment on above: Order Comment: Name Collection Type:: Clean-Voided Midstream Performed By: #### U HCG, ADDONUAPLUS, URDS, CUU #### [address] WBC,Urine 10-19 High 0-4 [facility] Comment on above: Order Comment: Name Collection Type:: Clean-Voided Midstream Performed By: #### U HCG, ADDONUAPLUS, URDS, CUU #### [address] Yeast,Urine None Seen Normal None Seen [facility] Comment on above: Order Comment: Name Collection Type:: Clean-Voided Midstream Performed By: #### U HCG, ADDONUAPLUS, URDS, CUU #### [address] Drug Screen,Urineon 09-06-20 23 Amphetamine Screen,Urine Negative Normal Negative [facility] Comment on above: Performed By: #### U HCG, ADDONUAPLUS, URDS, CUU #### [address] Barbiturate Screen,Urine Negative Normal Negative [facility] Comment on above: Performed By: #### U HCG, ADDONUAPLUS, URDS, CUU #### [address] Benzodiazepines Screen,Urine Negative Normal Negative [facility] Comment on above: Performed By: #### U HCG, ADDONUAPLUS, URDS, CUU #### [address] Cannabinoid Screen,Urine Negative Normal Negative [facility] Comment on above: Result Comment: Thes e are unconfirmed results and should not be used for legal purposes. Drug Cut-Off Concentration: AMPH 1000 ng/mL PONCHO 200 ng/mL KRISTAN 200 ng/mL COCM 300 ng/mL OP 300 ng/mL PCP 25 ng/mL THC 20 ng/mL PERFORMED BY: [place] [address] PATHOLOGIST [employer] MOISES VELASCO M.D. Performed By: #### U HCG, ADDONUAPLUS, URDS, CUU #### [address] Cocaine Screen,Urine Negative Normal Negative [facility] Comment on above: Performed By: #### U HCG, ADDONUAPLUS, URDS, CUU #### [facility] [address] [place] [address] Opiate Screen,Urine Negative Normal Negative [facility] Comment on above: Performed By: #### U HCG, ADDONUAPLUS, URDS, CUU #### [address] Phencyclidine Screen,Urine Negative Normal Negative [facility] Comment on above: Performed By: #### U HCG, ADDONUAPLUS, URDS, CUU #### [facility] [address] Eosinophils Auto (Bld) [#/Vo l]Ordered By: Matthew Leslie on 02-02-2023 Eosinophils (Bld) [#/Vol] 0.0 10*3/uL 0.0-0.45 [facility] Eosinophils/100 WBC Auto (Bl d)Ordered By: Matthew Leslie on 02-02-2023 Eosinophils/100 WBC (Bld) 0.4 % . [facility] Erythrocyte distribution wid th Auto (RBC) [Ratio]Ordered By: Matthew Leslie on 02-02-2023 Erythrocyte distribution width (RBC) [Ratio] 12.9 % 11.9-15.3 [facility] Ethanol [Mass/volume] in Ser um or PlasmaOrdered By: Matthew Leslie on 02-02-2023 Ethanol [Mass/Vol] mg/dL [facility] Ethanol [Mass/Vol] TNP [facility] Comment on above: Test not performed Ethyl Alcohol Profileon Ethanol [Mass/Vol] mg/dL Normal [facility] Comment on above: Performed By: #### E TANYA, HEPATIC, TSH3 wRFLX, CBC, CMP, [id number] #### [facility] [address] [place] [address] Percent Ethanol Not performed Normal [facility] Comment on above: Result Comment: PERF ORMED BY: [place] [address] PATHOLOGIST [employer] MOISES VELASCO M.D. Performed By: #### E TANYA, HEPATIC, TSH3 wRFLX, CBC, CMP, [id number] #### [facility] [address] [place] [address] Globulin Calc (S) [Mass/Vol] Ordered By: Matthew Leslie on 02-02-2023 Globulin (S) [Mass/Vol] 3.2 g/dL [facility] Glucose [Mass/volume] in Ser um or PlasmaOrdered By: Matthew Leslie on 02-02-2023 Glucose [Mass/Vol] 98 mg/dL 70-100 [facility] Comment on above: ADA recommended refe rence rangeRandom Glucose Reference Range is dependent on time and content of last meal. Glucose of more than 200 mg/dL in a nonstressed, ambulatory subject supports the diagnosis of Diabetes Mellitus. HCG ( test) IApo d Ql (U)Ordered By: Matthew Leslie on 02-02-2023 HCG ( test) Ql (U) Negative [facility] HCG,Urineon 02-02-2023 Beta HCG ( test) Ql (U) Negative Normal [facility] Comment on above: Order Comment: Name Collection Type:: Clean-Voided Midstream Result Comment: PERF ORMED BY: [place] [address] PATHOLOGIST [employer] MOISES VELASCO M.D. Performed By: #### U HCG, ADDONUAPLUS, URDS, CUU #### [facility] [address] [place] [address] Hematocrit Auto (Bld) [Volum e fraction]Ordered By: Matthew Leslie on 02-02-2023 Hematocrit (Bld) [Volume fraction] 41.1 % 34.0-46.4 [facility] Hemoglobin [Mass/volume] in BloodOrdered By: Matthew Leslie on 02-02-2023 Hemoglobin (Bld) [Mass/Vol] 13.8 g/dL 11.8-15.4 [facility] Hepatic Panelon 02-02-2023 Bilirubin,Indirect 0.5 mg/dL Normal [facility] Comment on above: Performed By: #### U HCG, ADDONUAPLUS, URDS, CUU #### [facility] [address] [place] [address] Bilirubin.indirect [Mass/Vol] 0.10 mg/dL Normal 0.03-0.18 [facility] Comment on above: Performed By: #### U HCG, ADDONUAPLUS, URDS, CUU #### [facility] [address] [place] [address] Ketones Auto test strip (U) [Mass/Vol]Ordered By: Matthew Leslie on 02-02-2023 Ketones (U) [Mass/Vol] 2+ Negative [facility] Leukocytes [#/volume] correc alberto for nucleated erythrocytes in Blood by Automated counOrdered By: Matthew Leslie on 02-02-2023 WBC corrected for nucl RBC Auto (Bld) [#/Vol] 7.6 10*3/uL 3.8-11.6 [facility] Lymphocytes Auto (Bld) [#/Vo l]Ordered By: Matthew Leslie on 02-02-2023 Lymphocytes (Bld) [#/Vol] 2.7 10*3/uL 1.00-4.8 [facility] Lymphocytes/100 WBC Auto (Bl d)Ordered By: Matthew Leslie on 02-02-2023 Lymphocytes/100 WBC (Bld) 36.0 % . [facility] MCH Auto (RBC) [Entitic mass ]Ordered By: Matthew Leslie on 02-02-2023 MCH (RBC) [Entitic mass] 29.4 pg 24.7-34.3 [facility] MCHC Auto (RBC) [Mass/Vol]Or dered By: Matthew Leslie on 02-02-2023 MCHC (RBC) [Mass/Vol] 33.6 g/dL 32.0-35.0 [facility] MCV Auto (RBC) [Entitic vol] Ordered By: Matthew Leslie on 02-02-2023 MCV (RBC) [Entitic vol] 87.6 fL 80-100 [facility] Monocyte distribution width [Entitic volume] in Blood by AutomatedOrdered By: Matthew Leslie on 02-02-2023 Monocyte distribution width Auto (Bld) [Entitic vol] 17.83 % 0.00-20.00 [facility] Monocytes Auto (Bld) [#/Vol] Ordered By: Matthew Leslie on 02-02-2023 Monocytes (Bld) [#/Vol] 0.6 10*3/uL 0.0-0.8 [facility] Monocytes/100 WBC Auto (Bld) Ordered By: Matthew Leslie on 02-02-2023 Monocytes/100 WBC (Bld) 7.9 % . [facility] Neutrophils Auto (Bld) [#/Vo l]Ordered By: Matthew Leslie on 02-02-2023 Neutrophils (Bld) [#/Vol] 4.2 10*3/uL 1.8-7.7 [facility] Neutrophils/100 WBC Auto (Bl d)Ordered By: Matthew Leslie on 02-02-2023 Neutrophils/100 WBC (Bld) 54.8 % . [facility] Nitrite Test strip Ql (U)Ord ered By: Matthew Leslie on 02-02-2023 Nitrite Ql (U) Negative Negative [facility] No Panel InformationOrdered By: Matthew Leslie on 02-02-2023 Estimated GFR (CKD-EPI) > 60.0 mL/Min [facility] Creatinine Clearance (Chem 76.05 [facility] Nucleated erythrocytes [Pres ence] in Blood by Automated countOrdered By: Matthew Leslie on 02-02-2023 Nucleated RBC Auto Ql (Bld) 0.0 /100{WBC} 0-0.5 [facility] Opiates [Presence] in Urine by Screen methodOrdered By: Matthew Leslie on 02-02-2023 Opiates Screen Ql (U) Negative Negative [facility] Phencyclidine Screen Ql (U)O rdered By: Matthew Leslie on 02-02-2023 Phencyclidine Ql (U) Negative Negative [facility] Platelet mean volume Auto (B ld) [Entitic vol]Ordered By: Matthew Leslie on 02-02-2023 Platelet mean volume (Bld) [Entitic vol] 9.2 fL 6.3-10.7 [facility] Platelets Auto (Bld) [#/Vol] Ordered By: Matthew Leslie on 02-02-2023 Platelets (Bld) [#/Vol] 322 10*3/uL 150-450 [facility] Potassium [Moles/volume] in Serum or PlasmaOrdered By: Matthew Leslie on 02-02-2023 Potassium [Moles/Vol] 3.8 mmol/L 3.5-5.1 [facility] Protein Auto test strip (U) [Mass/Vol]Ordered By: Matthew Leslie on 02-02-2023 Protein (U) [Mass/Vol] 30 mg/dL Negative [facility] Protein [Mass/volume] in Ser um or PlasmaOrdered By: Matthew Leslie on 02-02-2023 Protein [Mass/Vol] 7.8 g/dL 6.4-8.9 [facility] RBC Auto (Bld) [#/Vol]Ordere d By: Matthew Leslie on 02-02-2023 RBC (Bld) [#/Vol] 4.70 10*6/uL 3.60-5.00 [facility] Serum or plasma albumin/glob ulin mass ratioOrdered By: Matthew Leslie on 02-02-2023 Albumin/Globulin [Mass ratio] 1.4 {ratio} [facility] Serum or plasma anion gap de terminationOrdered By: Matthew Leslie on 02-02-2023 Anion gap [Moles/Vol] 9.5 mmol/L 6.0-15.0 [facility] Serum or plasma non-glucuron idated bilirubin measurement (mass/volume)Ordered By: Matthew Leslie on 02-02-2023 Bilirubin.indirect [Mass/Vol] 0.5 mg/dL [facility] Sodium [Moles/volume] in Ser um or PlasmaOrdered By: Matthew Leslie on 02-02-2023 Sodium [Moles/Vol] 141 mmol/L 136-145 [facility] Specific gravity Auto test s trip (U) [Rel density]Ordered By: Matthew Leslie on 02-02-2023 Specific gravity (U) [Rel density] 1.027 1.001-1.030 [facility] Squamous epithelial cells de tection in urine sediment by light microscopyOrdered By: Matthew Leslie on 02-02-2023 Epithelial cells.squamous LM Ql (Urine sed) 3-4 [HPF] 0-2 [facility] Thyroid Stim Hormone w/Rflxo n 02-02-2023 Thyroid Stim Hormone w/Rflx 3.74 u[iU]/mL Normal 0.45-5.33 [facility] Comment on above: Performed By: #### U HCG, ADDONUAPLUS, URDS, CUU #### [facility] [address] Thyrotropin [Units/volume] i n Serum or PlasmaOrdered By: Matthew Leslie on 02-02-2023 TSH Qn 3.74 m[IU]/L 0.45-5.33 [facility] Urea nitrogen [Mass/volume] in Serum or PlasmaOrdered By: Matthew Leslie on 02-02-2023 Urea nitrogen [Mass/Vol] 11 mg/dL 7-25 [facility] Urine Cultureon 02-02-2023 Bacteria identified Cx Nom (U) No Growth 2 Days PERFORMED BY: [place] [address] PATHOLOGIST [employer] MOISES VELASCO M.D. [facility] Comment on above: Performed By: #### U HCG, ADDONUAPLUS, URDS, CUU #### [address] Urine bacteria detection by automated methodOrdered By: Matthew Leslie on 02-02-2023 Bacteria Auto Ql (U) 1+ None Seen [facility] Urine clarity by refractomet ry automatedOrdered By: Matthew Leslie on 02-02-2023 Clarity Refractometry automated (U) Cloudy Clear [facility] Urine culture routineOrdered By: Matthew Leslie on 02-02-2023 Bacteria identified Cx Nom (U) No Growth 2 Days [facility] Urine glucose measurement by automated test strip (mass/volume)Ordered By: Matthew Leslie on 02-02-2023 Glucose Auto test strip (U) [Mass/Vol] Normal mg/dL Normal [facility] Urine hemoglobin detection b y automated test stripOrdered By: Matthew Leslie on 02-02-2023 Hemoglobin Auto test strip Ql (U) 3+ Negative [facility] Urine leukocyte esterase det ection by automated test stripOrdered By: Matthew Leslie on 02-02-2023 Leukocyte esterase Auto test strip Ql (U) 2+ Negative [facility] Urobilinogen Auto test strip (U) [Mass/Vol]Ordered By: Matthew Leslie on 02-02-2023 Urobilinogen (U) [Mass/Vol] Normal mg/dL Normal [facility] Vitamin D 25 Hydroxy Totalon 02-02-2023 Vitamin D 25 Hydroxy Total 54.2 ng/mL Normal 30-100 [facility] Comment on above: Result Comment: MABLE MIN D STATUS 25(OH)VITAMIN D RANGE (ng/mL) Deficient <20 Insufficient 20 to <30 Sufficient 30 to 100 Reference: Miri MF,Nimisha NC, Luisa MCCRACKEN, et al. Evaluation,treatment, and prevention of vitamin D deficiency; an Endocrine Society clinical practice guideline. JCEM. 2010; 96(7):191-. PERFORMED BY: [facility] [address] [place] [address] PATHOLOGIST [employer] MOISES VELASCO M.D. Performed By: #### U HCG, ADDONUAPLUS, URDS, CUU #### [facility] [address] Vitamin D+Metabolites [Mass/ volume] in Serum or PlasmaOrdered By: Matthew Leslie on 02-02-2023 Vitamin D+Metabolites [Mass/Vol] 54.2 ng/mL 30-100 [facility] Comment on above: VITAMIN D STATUS 25( [place])VITAMIN D RANGE (ng/mL) Deficient <20 Insufficient 20 to <30Sufficient 30 to 100Reference: Miri MF,Nimisha NC, Luisa MCCRACKEN, et al. Evaluation,treatment, and prevention of vitamin D deficiency; an Endocrine Society clinical practice guideline. JCEM. 2010; 96(7):1911-. WBC Auto (Bld) [#/Vol]Ordere d By: Matthew Leslie on 02-02-2023 WBC (Bld) [#/Vol] 7.6 10*3/uL 3.8-11.6 [facility] Yeast detection in urine sed iment by light microscopyOrdered By: Matthew Leslie on 02-02-2023 Yeast LM Ql (Urine sed) None seen [HPF] None Se en [facility] pH Auto test strip (U)Ordere d By: Matthew Leslie on 02-02-2023 pH (U) 6.0 [pH] 5.0-9.0 [facility] AMNISUREon 09-16-2022 AMNISURE Positive Abnormal NEGATIVE [facility] Comment on above: Performed By: #### A MNI #### [facility] [address], [place] [address] Dr. Adrianna Caldera CBC AUTO DIFFon 09-16-2022 BASO # 0.1 103/ul Normal 0.0-0.1 [facility] Comment on above: Performed By: #### C BC #### [facility] [address] [place] [address] [address] Adrianna Caldera Basophils/100 WBC (Bld) 0.4 % Normal 0.2-2.0 [facility] Comment on above: Performed By: #### C BC #### [facility] [address] [place] [address] Dr. Adrianna Caldera EO # 0.0 103/ul Normal 0.0-0.7 [facility] Comment on above: Performed By: #### C BC #### [facility] [address] [place] [address] Dr. Adrianna Caldera Eosinophils/100 WBC (Bld) 0.1 % Critically low 0.9-7.0 [facility] Comment on above: Performed By: #### C BC #### [facility] [address] [place] [address] Dr. Adrianna Caldera Erythrocyte distribution width (RBC) [Ratio] 12.3 % Normal 11.0-15.0 [facility] Comment on above: Performed By: #### C BC #### [facility] [address] [place] [address] Dr. Adrianna Caldera Hematocrit (Bld) [Volume fraction] 38.3 % Normal 36.0-48.0 [facility] Comment on above: Performed By: #### C BC #### [facility] [address] [place] [address] Dr. Adrianna Caldera Hemoglobin (Bld) [Mass/Vol] 12.8 g/dL Normal 12.0-16.0 [facility] Comment on above: Performed By: #### C BC #### [facility] [address] [place] [address] Dr. Adrianna Caldera IG # 0.20 10e3/ul Critically high 0.00-0.03 [facility] Comment on above: Performed By: #### C BC #### [facility] [address] [place] [address] Dr. Adrianna Caldera IG % 1.0 % Critically high 0.0-0.5 [facility] Comment on above: Performed By: #### C BC #### [facility] [address] [place] [address] Dr. Adrianna Caldera LYMPH # 1.5 103/ul Normal 1.2-3.8 [facility] Comment on above: Performed By: #### C BC #### [facility] [address] [place] [address] Dr. Adrianna Caldera Lymphocytes/100 WBC (Bld) 7.7 % Critically low 20.5-60.0 [facility] Comment on above: Performed By: #### C BC #### [facility] [address] [place] [address] Dr. Adrianna Caldera MANUAL DIFF REQ NO Normal [facility] Comment on above: Performed By: #### C BC #### [facility] [address] [place] [address] Dr. Adrianna Caldera MCH (RBC) [Entitic mass] 28.9 pg Normal 26.7-34.0 [facility] Comment on above: Performed By: #### C BC #### [facility] [address] [place] [address] Dr. Adrianna Caldera MCHC (RBC) [Mass/Vol] 33.4 g/dL Normal 29.9-35.2 [facility] Comment on above: Performed By: #### C BC #### [facility] [address] [place] [address] Dr. Adrianna Caldera MCV (RBC) [Entitic vol] 86.5 fL Normal 81.0-99.0 [facility] Comment on above: Performed By: #### C BC #### [facility] [address] [place] [address] Dr. Adrianna Caldera MONO # 0.3 103/ul Normal 0.3-0.8 [facility] Comment on above: Performed By: #### C BC #### [facility] [address] [place] [address] Dr. Adrianna Caldera Monocytes/100 WBC (Bld) 1.7 % Normal 1.7-12.0 [facility] Comment on above: Performed By: #### C BC #### [facility] [address] [place] [address] Dr. Adrianna Caldera NEUT # 17.5 103/ul Critically high 1.4-6.5 [facility] Comment on above: Performed By: #### C BC #### [facility] [address] [place] [address] Dr. Adrianna Caldera Neutrophils/100 WBC (Bld) 89.1 % Critically high 43.0-75.0 [facility] Comment on above: Performed By: #### C BC #### [facility] [address] [place] [address] Dr. Adrianna Caldera Platelet mean volume (Bld) [Entitic vol] 10.7 fL Normal 9.5-13.5 [facility] Comment on above: Performed By: #### C BC #### [facility] [address] [place] [address] Dr. Adrianna Caldera PLT 356 103/ul Normal 150-450 [facility] Comment on above: Performed By: #### C BC #### [facility] [address] [place] [address] Dr. Adrianna Caldera RBC 4.43 106/ul Normal 4.20-5.40 [facility] Comment on above: Performed By: #### C BC #### [facility] [address] [place] [address] Dr. Adrianna Caldera WBC 19.6 103/ul Critically high 4.0-11.0 [facility] Comment on above: Performed By: #### C BC #### [facility] [address] [place] [address] Dr. Adrianna Caldera UA (CLEAN/CATCH) CHIPPER FEEDER/MICRO I F IND.on 09-16-2022 Bilirubin Ql (U) Negative Normal NEGATIVE [facility] Comment on above: Performed By: #### U ACSIND #### [facility] [address] [place] [address] Dr. Adrianna Caldera Clarity (U) CLEAR Normal CLEAR [facility] Comment on above: Performed By: #### U ACSIND #### [facility] [address] [place] [address] Dr. Adrianna Caldera Color (U) LT. YELLOW Normal YELLOW [facility] Comment on above: Performed By: #### U ACSIND #### [facility] [address] [address] [address] Adrianna Cadlera Glucose Ql (U) Negative Normal NEGATIVE [facility] Comment on above: Performed By: #### U ACSIND #### [facility] [address] [address] [address] Adrianna Caldera Hemoglobin Ql (U) Negative Normal NEGATIVE [facility] Comment on above: Performed By: #### U ACSIND #### [facility] [address] [address] [address] Adrianna Caldera Ketones Ql (U) Negative Normal NEGATIVE [facility] Comment on above: Performed By: #### U ACSIND #### [facility] [address] [address] [address] Adrianna Caldera LEUKOCYTES Negative Normal NEGATIVE [facility] Comment on above: Performed By: #### U ACSIND #### [facility] [address] [address] [address] Adrianna Caldera Nitrite Ql (U) Negative Normal NEGATIVE [facility] Comment on above: Performed By: #### U ACSIND #### [facility] [address] [address] [address] Adrianna Caldera pH (U) 5.5 [pH] Normal 5-9 [facility] Comment on above: Performed By: #### U ACSIND #### [facility] [address] [address] [address] Adrianna Caldera SPEC GRAVITY 1.010 Normal 1.005-<=1.0 25 [facility] Comment on above: Performed By: #### U ACSIND #### [facility] [address] [address] [address] Adrianna Caldera UA PROTEIN Negative Normal NEGATIVE/ TRACE [facility] Comment on above: Performed By: #### U ACSIND #### [facility] [address] [address] [address] Adrianna Caldera UR MICRO IND NOT INDICATED Normal [facility] Comment on above: Performed By: #### U ACSIND #### [facility] [address] [address] [address] Adrianna Caldera Urobilinogen Qn (U) 0.2 {Micheal'U}/dL Normal 0.2 - 1. 0 [facility] Comment on above: Performed By: #### U ACSIND #### [facility] [address] [address] [address] Adrianna Caldera US PREG GROWTHon 09-16-2022 [...] KAROL SIDDIQUI Date: 2022-09-16 15:19 Normal [facility] UA (CLEAN/CATCH) CHIPPER FEEDER/MICRO I F IND.on 09-04-2022 Bilirubin Ql (U) Negative Normal NEGATIVE [facility] Comment on above: Performed By: #### U ACSIND ####[facility] [address] [address]Dr. Adrianna Caldera Clarity (U) CLEAR Normal CLEAR [facility] Comment on above: Performed By: #### U ACSIND ####[facility] [address] [address]Dr. Adrianna Caldera Color (U) LT. YELLOW Normal YELLOW [facility] Comment on above: Performed By: #### U ACSIND ####[facility] [address] [address]Dr. Adrianna Caldera Glucose Ql (U) Negative Normal NEGATIVE [facility] Comment on above: Performed By: #### U ACSIND ####[facility] [address] [place], [place] [address]Dr. Jemimabenito Werner Hemoglobin Ql (U) Negative Normal NEGATIVE [facility] Comment on above: Performed By: #### U ACSIND ####[facility] [address] [address]Dr. Adrianna Caldera Ketones Ql (U) Negative Normal NEGATIVE [facility] Comment on above: Performed By: #### U ACSIND ####[facility] [address] [place], [place] [address]Dr. Adrianna Caldera LEUKOCYTES Negative Normal NEGATIVE [facility] Comment on above: Performed By: #### U ACSIND ####[facility] [address] [place], [place] [address]Dr. Adrianna Caldera Nitrite Ql (U) Negative Normal NEGATIVE [facility] Comment on above: Performed By: #### U ACSIND ####[facility] [address] [place], [place] [address]Dr. Adrianna Caldera pH (U) 7.5 [pH] Normal 5-9 [facility] Comment on above: Performed By: #### U ACSIND ####[facility] [address] [place], [place] [address]Dr. Adrianna Caldera SPEC GRAVITY 1.010 Normal 1.005-<=1.[address] [place] [address] Comment on above: Performed By: #### U ACSIND ####[facility] [address] [place], [place] [address]Dr. Adrianna Caldera UA PROTEIN Negative Normal NEGATIVE/ TRACE [facility] Comment on above: Performed By: #### U ACSIND ####[facility] [address] [place], [place] [address]Dr. Adrianna Caldera UR MICRO IND NOT INDICATED Normal [facility] Comment on above: Performed By: #### U ACSIND ####[facility] [address] [place], [place] [address]Dr. Adrianna Caldera Urobilinogen Qn (U) 0.2 {Micheal'U}/dL Normal 0.2 - 1. 0 [facility] Comment on above: Performed By: #### U ACSIND ####[facility] [address] [address]Dr. Adrianna Caldera GTT 3 HR PREGon 08-30-2022 Glucose [Mass/Vol] 88 mg/dL Normal 74-106 [facility] Comment on above: Performed By: #### G TT3P ####[facility] [address] [address]Dr. Adrianna Caldera Glucose [Mass/Vol] 167 mg/dL Normal [facility] Comment on above: Performed By: #### G TT3P ####[facility] [address] [address]Dr. Adrianna Caldera Glucose [Mass/Vol] 136 mg/dL Normal [facility] Comment on above: Performed By: #### G TT3P ####[facility] [address] [address]Dr. Adrianna Caldera Glucose [Mass/Vol] 144 mg/dL Normal [facility] Comment on above: Performed By: #### G TT3P ####[facility] [address] [address]Dr. Adrianna Caldera US PREG PLACENTAon 3 US [...] KAROL SIDDIQUI Date: 2022-08-17 15:46 Normal [facility] CBC with Diffon 08-10-2022 Abs. Basophil 0.04 k/uL Normal 0.00-0.20 [facility] Comment on above: Performed By: #### L IP, CDP, CP #### [facility] [address] [place] [address] Dr. [place], [place] [address] [facility]: Cholo Alicea MD Abs.Imm.Granulocyte 0.10 k/uL Normal 0.00-0.30 [facility] Comment on above: Performed By: #### L IP, CDP, CP #### [facility] [address] [place] [address] Dr. [place], [place] [address] [facility]: Cholo Alicea MD Abs.Neutrophil (Seg) 9.26 k/uL High 1.50-8.10 [facility] Comment on above: Performed By: #### L IP, CDP, CP #### [facility] [address] [place] [address] [place] [address] [facility]: Cholo Alicea MD Basophils/100 WBC (Bld) 0 % Normal 0-2 [facility] Comment on above: Performed By: #### L IP, CDP, CP #### [facility] [address] [place] [address] Dr. [place], [place] [address] [facility]: Cholo Alicea MD Eosinophils (Bld) [#/Vol] 0.05 10*3/uL Normal 0.00-0.44 [facility] Comment on above: Performed By: #### L IP, CDP, CP #### [facility] [address] [place] [address] Dr. [place], [place] [address] [facility]: Cholo Alicea MD Eosinophils/100 WBC (Bld) 0 % Low 1-4 [facility] Comment on above: Performed By: #### L IP, CDP, CP #### [facility] [address] [place] [address] Dr. [place], [facility]83 [facility]: Cholo Alicea MD Erythrocyte distribution width (RBC) [Ratio] 12.5 % Normal 11.8-14.4 [facility] Comment on above: Performed By: #### L IP, CDP, CP #### [facility] [address] [place] [address] Dr. [address] [place] [id number] [facility]: Cholo Alicea MD Hematocrit (Bld) [Volume fraction] 35.2 % Low 36.3-47.1 [facility] Comment on above: Performed By: #### L TATA LOPEZ, CP #### [facility] [address] [place] [address] Dr. [place], [place] [id number] [facility]: Cholo Alicea MD Hemoglobin (Bld) [Mass/Vol] 11.6 g/dL Low 11.9-15.1 [facility] Comment on above: Performed By: #### L JESSICA CDP, CP #### [facility] [address] [place] [address] Dr. [place], [place] [id number] [facility]: Cholo Alicea MD Immature granulocytes/100 WBC (Bld) 1 % High 0 [facility] Comment on above: Performed By: #### L TATA LOPEZ, CP #### [address] [place], [place] [id number] [facility]: Cholo Alicea MD Lymphocytes (Bld) [#/Vol] 1.99 10*3/uL Normal 1.10-3.70 [facility] Comment on above: Performed By: #### L TATA LOPEZ, CP #### [address] [place], [place] [address] [facility]: Cholo Alicea MD Lymphocytes/100 WBC (Bld) 17 % Low 24-43 [facility] Comment on above: Performed By: #### L TATA LOPEZ, CP #### [facility] [address] [place] [address] Dr. [place], [place] [id number] [facility]: Cholo Alicea MD MCH (RBC) [Entitic mass] 30.8 pg Normal 25.2-33.5 [facility] Comment on above: Performed By: #### L IP, CDP, CP #### [facility] [address] [place] [address] Dr. [place], [place] [id number] [facility]: Cholo Alicea MD MCHC (RBC) [Mass/Vol] 33.0 g/dL Normal 28.4-34.8 [facility] Comment on above: Performed By: #### L JESSICA CDP, CP #### [address] [place], [place] 1350583 [facility]: Cholo Alicea MD MCV (RBC) [Entitic vol] 93.4 fL Normal 82.6-102.9 [facility] Comment on above: Performed By: #### L IP CDP, CP #### [address] [place], [facility]83 [facility]: Cholo Alicea MD Monocytes (Bld) [#/Vol] 0.43 10*3/uL Normal 0.10-1.20 [facility] Comment on above: Performed By: #### L JESSICA CDP, CP #### [address] [place], [facility]83 [facility]: Cholo Alicea MD Monocytes/100 WBC (Bld) 4 % Normal 3-12 [facility] Comment on above: Performed By: #### L TATA LOPEZ, CP #### [address] [place], [facility]83 [facility]: Cholo Alicea MD Neutrophil (Seg) 78 % High 36-65 [facility] Comment on above: Performed By: #### L TATA LOPEZ, CP #### [address] [place], [facility]83 [facility]: Cholo Alicea MD NRBC Automated 0.0 per 100 WBC Normal 0.0 [facility] Comment on above: Performed By: #### L JESSICA CDP, CP #### [address] [place], [facility]83 [facility]: Cholo Alicea MD Platelet mean volume (Bld) [Entitic vol] 10.6 fL Normal 8.1-13.5 [facility] Comment on above: Performed By: #### L IP, CDP, CP #### [facility] [address] [place], [place] 3903683 [facility]: Cholo Alicea MD Platelets (Bld) [#/Vol] 333 10*3/uL Normal 138-453 [facility] Comment on above: Performed By: #### L IP, CDP, CP #### [facility] [address] [place], [place] [id number] [facility]: Cholo Alicea MD RBC (Bld) [#/Vol] 3.77 10*6/uL Low 3.95-5.11 [facility] Comment on above: Performed By: #### L IP, CDP, CP #### [address] [place], [place] 9483683 [facility]: Cholo Alicea MD WBC (Bld) [#/Vol] 11.9 10*3/uL High 3.5-11.3 [facility] Comment on above: Performed By: #### L IP, CDP, CP #### [address] [place], [place] 9127783 [facility]: Cholo Alicea MD Glucose Andrae Scr 50gon 2022 Glu Administered via Glucola Normal [facility] Comment on above: Performed By: #### L IP, CDP, CP #### [address] [place], [place] 4717983 [facility]: Cholo Alicea MD Glucose [Mass/Vol] 161 mg/dL High 70-135 [facility] Comment on above: Performed By: #### L IP, CDP, CP #### [facility] [address] [place] [address] [facility]: Cholo Alicea MD UA (CLEAN/CATCH) CHIPPER FEEDER/MICRO I F IND.on 07-21-2022 Bilirubin Ql (U) Negative Normal NEGATIVE [facility] Comment on above: Performed By: #### U ACSIND ####[facility] [address] [address]Dr. Adrianna Caldera Clarity (U) CLEAR Normal CLEAR [facility] Comment on above: Performed By: #### U ACSIND ####[facility] [address] [place], [place] [address]Dr. Adrianna Caldera Color (U) LT. YELLOW Normal YELLOW [facility] Comment on above: Performed By: #### U ACSIND ####[facility] [address] [place], [place] [address]Dr. Adrianna Caldera Glucose Ql (U) Negative Normal NEGATIVE [facility] Comment on above: Performed By: #### U ACSIND ####[facility] [address] [place], [place] [address]Dr. Adrianna Caldera Hemoglobin Ql (U) Negative Normal NEGATIVE [facility] Comment on above: Performed By: #### U ACSIND ####[facility] [address] [place], [place] [address]Dr. Adrianna Caldera Ketones Ql (U) Negative Normal NEGATIVE [facility] Comment on above: Performed By: #### U ACSIND ####[facility] [address] [place], [place] [address]Dr. Adrianna Caldera LEUKOCYTES Negative Normal NEGATIVE [facility] Comment on above: Performed By: #### U ACSIND ####[facility] [address] [place], [place] [address]Dr. Adrianna Caldera Nitrite Ql (U) Negative Normal NEGATIVE [facility] Comment on above: Performed By: #### U ACSIND ####[facility] [address] [place], [place] [address]Dr. Adrianna Caldera pH (U) 7.0 [pH] Normal 5-9 [facility] Comment on above: Performed By: #### U ACSIND ####[facility] [address] [place], [place] [address]Dr. Adrianna Caldera SPEC GRAVITY 1.010 Normal 1.005-<=1.0 25 [facility] Comment on above: Performed By: #### U ACSIND ####[facility] [address] [place], [place] [address]Rj. Adrianna Caldera UA PROTEIN Negative Normal NEGATIVE/ TRACE [facility] Comment on above: Performed By: #### U ACSIND ####[facility] [address] [place], [place] [address]Uu. Adrianna Caldera UR MICRO IND NOT INDICATED Normal [facility] Comment on above: Performed By: #### U ACSIND ####[facility] [address] [place], [place] [address]Pp. Adrianna Caldera Urobilinogen Qn (U) 0.2 {Micheal'U}/dL Normal 0.2 - 1. 0 [facility] Comment on above: Performed By: #### U ACSIND ####[facility] [address] [place] [id number]. Adrianna Caldera US PREG ANATOMY SINGLEon US [...] by: KAROL SIDDIQUI Date: 2022-07-21 16:41 Normal [facility] PAP ACOG PANEL 2: 23 to 31on 07-12-2022 . . Normal [facility] Comment on above: Performed By: #### [id number] ####[facility] [address] [place] [address]DrAung Caldera Age Gdln ACOG Testing - Normal [facility] Comment on above: Performed By: #### 4 [id number] ####[facility] [address] [place], [place] [address]DrAung Caldera DIAGNOSIS: Comment [facility] Comment on above: Result Comment: NEGA TIVE FOR INTRAEPITHELIAL LESION OR MALIGNANCY. Performed By: #### 4 [id number] ####[facility] [address] [place], [place] [address]DrAung Caldera Methodology: Comment Normal [facility] Comment on above: Result Comment: This liquid based ThinPrep(R) pap test was screened with the use of an image guided system. Performed By: #### 4 [id number] ####[facility] [address] [place], [place] [address]DrAung Caldera Note: Comment [facility] Comment on above: Result Comment: The Pap smear is a screening test designed to aid in the detection of premalignant and malignant conditions of the uterine cervix. It is not a diagnostic procedure and should not be used as the sole means of detecting cervical cancer. Both false-positive and false-negative reports do occur. . Performed By: #### [id number] ####[facility] [address] [place], [place] [address]DrAung Caldera Performed by: Comment Normal [facility] Comment on above: Result Comment: [place] Yin, Shrimp Peeling Machine Tender (ASCP) Performed By: #### 4 [id number] ####[facility] [address] [place], [place] [address]DrAung Caldera Reflex Criteria: Comment Normal [facility] Comment on above: Result Comment: The HPV DNA reflex criteria were not met with this specimen result therefore, no HPV testing was performed. . Performed By: #### 4 [id number] ####[facility] [address] [place] [address]Dr. Adrianna Caldera Specimen adequacy: Comment Normal [facility] Comment on above: Result Comment: Sati sfactory for evaluation. No endocervical component is identified. Performed By: #### 4 [id number] ####[facility] [address] [place] [address]Dr. Adrianna Caldera CHLAMYDIA/GONOCOCCUS ALEKSANDER (SW AB/URINE/PAPon 07-07-2022 Chlamydia trachomatis, ALEKSANDER Negative Normal Negative [facility] Comment on above: Performed By: #### C T/NGNA ####[facility] [address] [place], [place] [address]Dr. Adrianna Caldera Neisseria gonorrhoeae, ALEKSANDER Negative Normal Negative [facility] Comment on above: Performed By: #### C T/NGNA ####[facility] [address] [place] [address]Dr. Adrianna Caldera VAGINITIS/VAGINOSIS DNA PROB Scott 07-07-2022 Sherley species Negative Normal Negative [facility] Comment on above: Performed By: #### U ACSIND #### [facility] [address] [address] [address] Adrianna Caldera Gardnerella vaginalis Negative Normal Negative [facility] Comment on above: Performed By: #### U ACSIND #### [facility] [address] [address] [address] Adrianna Caldera Trichomonas vaginalis Negative Normal Negative [facility] Comment on above: Performed By: #### U ACSIND #### [facility] [address] [address] [address] Adrianna Caldera Cult,Urineon 07-02-2022 Cult,Urine Specimen Description .CLEAN CATCH URINE Culture NO SIGNIFICANT GROWTH Report Status FINAL 07/02/2022 Normal [facility] Comment on above: Performed By: #### L IP, CDP, CP #### [facility] [address] [place] [address] [facility]: Cholo Alicea MD ABO/RHon 06-30-2022 ABO/Rh Negative [facility] ABO/Rh(D)on 06-30-2022 ABO/Rh(D) Negative Normal [facility] Comment on above: Performed By: #### L TATA LOPEZ, ANTONIA #### [facility] [address] [place] [address] [facility]: Cholo Alicea MD CBC with Auto Differentialon 06-30-2022 Absolute Eos # 0.06 [place] [facility] Absolute Immature Granulocyte 0.07 [facility] Absolute Lymph # 2.91 [facility] Absolute Atkinson # 0.66 [facility] Basophils (Bld) [#/Vol] 0.04 10*3/uL [facility] Basophils/100 WBC (Bld) 0 % 0 - 2 % B [facility] Eosinophils/100 WBC (Bld) 1 % 1 - 4 % [facility] Hematocrit (Bld) [Volume fraction] 35.2 % Low 36.3 - 47.1 % [facility] Hemoglobin (Bld) [Mass/Vol] 11.9 g/dL 11.9 - 15.1 g/dL [facility] Immature granulocytes/100 WBC (Bld) 1 % High 0 [facility] Lymphocytes/100 WBC (Bld) 24 % 24 - 43 % [facility] MCH (RBC) [Entitic mass] 30.7 pg 25.2 - 33.5 pg [facility] MCHC (RBC) [Mass/Vol] 33.8 g/dL 28.4 - 34.8 g/dL [facility] MCV (RBC) [Entitic vol] 91.0 fL 82.6 - 102.9 fL [facility] Monocytes/100 WBC (Bld) 5 % 3 - 12 % B ON [facility] NRBC Automated 0.0 0.0 per 100 WBC [facility] Platelet distribution width (Bld) [Ratio] 12.2 % 11.8 - 14.4 % [facility] Platelet mean volume (Bld) [Entitic vol] 10.5 fL 8.1 - 13.5 fL [facility] Platelets (Bld) [#/Vol] 301 10*3/uL [facility] RBC (Bld) [#/Vol] 3.87 10*6/uL Low 3.95 - 5.1 1 m/uL [facility] Segmented neutrophils/100 WBC (Bld) 69 % High 36 - 65 % [facility] Segs Absolute 8.40 High [facility] WBC (Bld) [#/Vol] 12.1 10*3/uL High [facility] CBC with Diffon 06-30-2022 Abs. Basophil 0.04 k/uL Normal 0.00-0.20 [facility] Comment on above: Performed By: #### L TATA LOPZE, CP #### [facility] [address] [place] [address] [address] [place] [id number] [facility]: Cholo Alicea MD Abs.Imm.Granulocyte 0.07 k/uL Normal 0.00-0.30 [facility] Comment on above: Performed By: #### L TATA LOPEZ, CP #### [address] [place], [facility]: Cholo Alicea MD Abs.Neutrophil (Seg) 8.40 k/uL High 1.50-8.10 [facility] Comment on above: Performed By: #### L TATA LOPEZ, CP #### [facility] [address] [place] [address] Dr. [place], [facility]: Cholo Alicea MD Basophils/100 WBC (Bld) 0 % Normal 0-2 M [facility] Comment on above: Performed By: #### L JESSICA CDP, CP #### [address] [place], [facility]: Cholo Alicea MD Eosinophils (Bld) [#/Vol] 0.06 10*3/uL Normal 0.00-0.44 [facility] Comment on above: Performed By: #### L TATA LOPEZ, CP #### [address] [place], [facility]: Cholo Alicea MD Eosinophils/100 WBC (Bld) 1 % Normal 1-4 [facility] Comment on above: Performed By: #### L TATA LOPEZ, CP #### [address] [place], [place] [address] [facility]: Cholo Alicea MD Erythrocyte distribution width (RBC) [Ratio] 12.2 % Normal 11.8-14.4 [facility] Comment on above: Performed By: #### L TATA LOPEZ, CP #### [address] [place] [address] [facility]: Cholo Alicea MD Hematocrit (Bld) [Volume fraction] 35.2 % Low 36.3-47.1 [facility] Comment on above: Performed By: #### L TATA LOPEZ, CP #### [address] [place], [place] [address] [facility]: Cholo Alicea MD Hemoglobin (Bld) [Mass/Vol] 11.9 g/dL Normal 11.9-15.1 [facility] Comment on above: Performed By: #### L TATA LOPEZ, CP #### [address] [place], [facility]: Cholo Alicea MD Immature granulocytes/100 WBC (Bld) 1 % High 0 [facility] Comment on above: Performed By: #### L IP CDP, CP #### [address] [place], [facility]83 [facility]: Cholo Alicea MD Lymphocytes (Bld) [#/Vol] 2.91 10*3/uL Normal 1.10-3.70 [facility] Comment on above: Performed By: #### L IP, CDP, CP #### [address] [place], [place] [id number] [facility]: Cholo Alicea MD Lymphocytes/100 WBC (Bld) 24 % Normal 24-43 [facility] Comment on above: Performed By: #### L IP, CDP, CP #### [address] [place] [id number] [facility]: Cholo Alicea MD MCH (RBC) [Entitic mass] 30.7 pg Normal 25.2-33.5 [facility] Comment on above: Performed By: #### L IP, CDP, CP #### [address] [place] [id number] [facility]: Cholo Alicea MD MCHC (RBC) [Mass/Vol] 33.8 g/dL Normal 28.4-34.8 [facility] Comment on above: Performed By: #### L IP, CDP, CP #### [address] [place] [id number] [facility]: Cholo Alicea MD MCV (RBC) [Entitic vol] 91.0 fL Normal 82.6-102.9 [facility] Comment on above: Performed By: #### L IP, CDP, CP #### [address] [place], [facility]83 [facility]: Cholo Alicea MD Monocytes (Bld) [#/Vol] 0.66 10*3/uL Normal 0.10-1.20 [facility] Comment on above: Performed By: #### L IP, CDP, CP #### [address] [place] [address] [facility]: Cholo Alicea MD Monocytes/100 WBC (Bld) 5 % Normal 3-12 M [facility] Comment on above: Performed By: #### L IP, CDP, CP #### [facility] [address] [place], [place] [address] [facility]: Cholo Alicea MD Neutrophil (Seg) 69 % High 36-65 [facility] Comment on above: Performed By: #### L IP, CDP, CP #### [facility] [address] [place], [place] [address] [facility]: Cholo Alicea MD NRBC Automated 0.0 per 100 WBC Normal 0.0 [facility] Comment on above: Performed By: #### L IP, CDP, CP #### [address] [place], [facility]83 [facility]: Cholo Alicea MD Platelet mean volume (Bld) [Entitic vol] 10.5 fL Normal 8.1-13.5 [facility] Comment on above: Performed By: #### L IP, CDP, CP #### [address] [place], [place] [address] [facility]: Cholo Alicea MD Platelets (Bld) [#/Vol] 301 10*3/uL Normal 138-453 [facility] Comment on above: Performed By: #### L IP, CDP, CP #### [address] [place], [place] [address] [facility]: Cholo Alicea MD RBC (Bld) [#/Vol] 3.87 10*6/uL Low 3.95-5.11 [facility] Comment on above: Performed By: #### L IP, CDP, CP #### [address] [place], [place] [id number] [facility]: Cholo Alicea MD WBC (Bld) [#/Vol] 12.1 10*3/uL High 3.5-11.3 [facility] Comment on above: Performed By: #### L IP, CDP, CP #### [facility] [address] [place] [address] Phys[facility]: Cholo Alicea MD [facility] 06-30-2022 Albumin [Mass/Vol] 3.6 g/dL 3.5 - 5.2 g/dL [facility] Albumin/Globulin [Mass ratio] 1.1 {ratio} 1.0 - 2.5 [facility] ALP [Catalytic activity/Vol] 74 U/L 35 - 104 U/L [facility] ALT [Catalytic activity/Vol] 9 U/L 5 - 33 U/L [facility] Anion gap [Moles/Vol] 13 mmol/L 9 - 17 mmol/L [facility] AST [Catalytic activity/Vol] 18 U/L NINF - 32 U/L [facility] Bilirubin [Mass/Vol] mg/dL Low 0.3 - 1 .2 mg/dL [facility] Calcium [Mass/Vol] 9.5 mg/dL 8.6 - 10. 4 mg/dL [facility] Chloride [Moles/Vol] 101 mmol/L 98 - 10 7 mmol/L [facility] CO2 [Moles/Vol] 21 mmol/L 20 - 31 mmol/L [facility] Creatinine [Mass/Vol] 0.55 mg/dL 0.50 - 0.90 mg/dL [facility] GFR/1.73 sq M.predicted MDRD (S/P/Bld) [Vol rate/Area] - PINF [facility] Comment on above: These results are not [...] [Mass/Vol] 84 mg/dL 70 - 99 mg/dL [facility] Potassium [Moles/Vol] 3.8 mmol/L 3.7 - 5.3 mmol/L [facility] Protein [Mass/Vol] 6.9 g/dL 6.4 - 8.3 g/dL [facility] Sodium [Moles/Vol] 135 mmol/L 135 - 144 mmol/L [facility] Urea nitrogen [Mass/Vol] 8 mg/dL 6 - 20 mg/dL [facility] Urea nitrogen/Creatinine (Bld) [Mass ratio] 15 9 - 20 [facility] Comp Metabolic Profon 2022 Albumin [Mass/Vol] 3.6 g/dL Normal 3.5-5.2 [facility] Comment on above: Performed By: #### L IP, CDP, CP #### [facility] [address] [place] [address] [facility]: Cholo Alicea MD Albumin/Glob Ratio 1.1 Normal 1.0-2.5 [facility] Comment on above: Performed By: #### L IP, CDP, CP #### [facility] [address] [place], [place] [id number] [facility]: Cholo Alicea MD Alkaline Phos 74 U/L Normal 35-104 [facility] Comment on above: Performed By: #### L IP, CDP, CP #### [facility] [address] [place] [address] [facility]: Cholo Alicea MD ALT [Catalytic activity/Vol] 9 U/L Normal 5-33 [facility] Comment on above: Performed By: #### L IP, CDP, CP #### [facility] [address] [place] [address] [facility]: Cholo Alicea MD Anion gap [Moles/Vol] 13 mmol/L Normal 9-17 [facility] Comment on above: Performed By: #### L IP, CDP, CP #### [facility] [address] [place] [address] [facility]: Cholo Alicea MD AST [Catalytic activity/Vol] 18 U/L Normal <32 [facility] Comment on above: Performed By: #### L IP, CDP, CP #### [facility] [address] [place] [address] [place] [address] [facility]: Cholo Alicea MD Bilirubin [Mass/Vol] mg/dL Low 0.3-1.2 [facility] Comment on above: Performed By: #### L IP, CDP, CP #### [facility] [address] [place] [address] Dr. [place], [place] [id number] [facility]: Cholo Alicea MD BUN/CRE Ratio 15 Normal 9-20 [facility] Comment on above: Performed By: #### L IP, CDP, CP #### [address] [place] [address] [facility]: Cholo Alicea MD Calcium [Mass/Vol] 9.5 mg/dL Normal 8.6-10.4 [facility] Comment on above: Performed By: #### L IP, CDP, CP #### [address] [place], [place] [id number] [facility]: Cholo Alicea MD Chloride [Moles/Vol] 101 mmol/L Normal 98-107 [facility] Comment on above: Performed By: #### L IP, CDP, CP #### [address] [place], [place] [id number] [facility]: Cholo Alicea MD CO2 [Moles/Vol] 21 mmol/L Normal 20-31 [facility] Comment on above: Performed By: #### L IP, CDP, CP #### [address] [place] [address] [facility]: Cholo Ailcea MD Creatinine [Mass/Vol] 0.55 mg/dL Normal 0.50-0.90 [facility] Comment on above: Performed By: #### L IP, CDP, CP #### [address] [place] [address] [facility]: Cholo Alicea MD GFR/1.73 sq M.predicted among non-blacks MDRD (S/P/Bld) [Vol rate/Area] mL/min/{1.73_m2} Normal >60 [facility] Comment on above: Result Comment: These [...] By: #### L IP CDP, CP #### [address] [place] [address] [facility]: Cholo Alicea MD Glucose [Mass/Vol] 84 mg/dL Normal 70-99 [facility] Comment on above: Performed By: #### L IP CDP, CP #### [address] [place] [address] [facility]: Cholo Alciea MD Potassium [Moles/Vol] 3.8 mmol/L Normal 3.7-5.3 [facility] Comment on above: Performed By: #### L IP CDP, CP #### [address] [place] [address] [facility]: Cholo Alicea MD Protein [Mass/Vol] 6.9 g/dL Normal 6.4-8.3 [facility] Comment on above: Performed By: #### L IP, CDP, CP #### [address] [place] [address] [facility]: Cholo Alicea MD Sodium [Moles/Vol] 135 mmol/L Normal 135-144 [facility] Comment on above: Performed By: #### L IP, CDP, CP #### [facility] [address] [place] [address] [place] [address] [facility]: Cholo Alicea MD Urea nitrogen [Mass/Vol] 8 mg/dL Normal 6-20 [facility] Comment on above: Performed By: #### L TATA LOPEZ, CP #### [facility] [address] [place] [address] [place] [address] [facility]: Cholo Alicea MD Lipaseon 06-30-2022 Lipase [Catalytic activity/Vol] 30 U/L 13 - 60 U/L [facility] Lipase [Catalytic activity/Vol] 30 U/L Normal 13-60 [facility] Comment on above: Performed By: #### L TATA LOPEZ, CP #### [address] [place] [address] [facility]: Cholo Alicea MD Microscopic Urinalysison Bacteria, UA 2+ Abnormal None [facility] Epithelial Cells UA 0 TO 2 [facility] Mucus, UA 3+ Abnormal None [facility] RBC clumps Auto (Urine sed) [#/Area] 0 TO 2 [facility] WBC, UA 0 TO 2 [facility] No Panel Informationon 06-30 Interpretation and review of laboratory results Abnormal [facility] PTon 06-30-2022 INR Coag (PPP) [Relative time] 1.0 {INR} Normal [facility] Comment on above: Result Comment: Therapeutic Range: Moderate Anticoagulant Intensity: INR = 2.0-3.0 High Anticoagulant Intensity: INR = 2.5-3.5 Performed By: #### L TATA LOPEZ, CP #### [address] [place] [address] [facility]: Cholo Alicea MD PT Coag (PPP) [Time] 13.3 s Normal 11.5-14.2 [facility] Comment on above: Performed By: #### L TATA LOPEZ, CP #### [facility] [address] [place] [address] [facility]: Cholo Alicea MD Protime-INRon 06-30-2022 INR Coag (PPP) [Relative time] 1.0 {INR} [facility] Comment on above: Therapeutic Range: Moderate Anticoagulant Intensity: INR = 2.0-3.0 High Anticoagulant Intensity: INR = 2.5-3.5 PT Coag (PPP) [Time] 13.3 s [facility] UA w/Reflex Cultureon 2022 Bilirubin, SemiQt,Ur Negative Normal NEG [facility] Comment on above: Performed By: #### U DAHLIAO, UAX #### [facility] [address] [place] [address] [place] [address] [facility]: Cholo Alicea MD Blood, Urine Negative Normal NEG [facility] Comment on above: Performed By: #### U MICAO, UAX #### [facility] [address] [place], [place] [id number] [facility]: Cholo Alicea MD Clarity (U) Clear Normal CLEAR [facility] Comment on above: Performed By: #### U MICAO, UAX #### [facility] [address] [place] [address] [facility]: Cholo Alicea MD Color (U) Yellow Normal YEL [facility] Comment on above: Performed By: #### U MICAO, UAX #### [facility] [address] [place] [address] [facility]: Cholo Alicea MD Glucose Ql (U) Negative Normal NEG [facility] Comment on above: Performed By: #### U MICAO, UAX #### [facility] [address] [place] [address] [facility]: hColo Alicea MD Ketones Ql (U) Negative Normal NEG [facility] Comment on above: Performed By: #### U MICAO, UAX #### [facility] [address] [place] [address] [place] [address] [facility]: Cholo Alicea MD Leukocyte esterase Test strip Ql (U) Negative Normal NEG [facility] Comment on above: Performed By: #### U MICAO, UAX #### [facility] [address] [place] [address] Dr[place], [place] [id number] [facility]: Cholo Alicea MD Nitrite,Ur Negative Normal NEG [facility] Comment on above: Performed By: #### U MICAO, UAX #### [address] [place] [address] [facility]: Cholo Alicea MD PH,Ur 6.0 Normal 5.0-9.0 [facility] Comment on above: Performed By: #### U MICAO, UAX #### [address] [place] [address] [facility]: Cholo Alicea MD Protein Ql (U) Negative Normal NEG [facility] Comment on above: Performed By: #### U MICAO, UAX #### [address] [place] [address] [facility]: Cholo Alicea MD Spec. [place],Ur 1.025 High 1.010-1.020 [facility] Comment on above: Performed By: #### U MICAO, UAX #### [address] [place], [place] [id number] [facility]: Cholo Alicea MD Urobilinogen,Ur Normal Normal NORM [facility] Comment on above: Performed By: #### U MICAO, UAX #### [address] [place], [place] 5225983 [facility]: Cholo Alicea MD Urinalysis with Reflex to Cu ltureon 06-30-2022 Bilirubin Urine Negative NEGATIVE [facility] Color, UA Yellow Yellow [facility] Glucose Auto test strip (U) [Mass/Vol] Negative NEGATIVE [facility] Ketones (U) [Mass/Vol] Negative NEGATIVE [facility] Leukocyte esterase Auto test strip Ql (U) Negative NEGATIVE [facility] Nitrite Auto test strip Ql (U) Negative NEGATIVE [facility] Protein (U) [Mass/Vol] 6.0 mg/dL 5.0 - 9.0 [facility] Protein (U) [Mass/Vol] Negative NEGATIVE [facility] Specific [place], UA 1.025 High 1.010 - 1.020 [facility] Turbidity UA Clear Clear [facility] Urine Hgb Negative NEGATIVE [facility] Urobilinogen, Urine Normal Normal [facility] Urinalysis,Microon 3 Bacteria 2+ Abnormal [facility] Comment on above: Performed By: #### U MICAO, UAX #### [facility] [address] [place] [address] [facility]: Cholo Alicea MD Epithelial cells LM Ql (Urine sed) 0 TO 2 Normal 0-25 [facility] Comment on above: Performed By: #### U MICAO, UAX #### [facility] [address] [place], [facility]: Cholo Alicea MD Mucus Strands 3+ Abnormal [facility] Comment on above: Performed By: #### U MICAO, UAX #### [facility] [address] [place] [address] [facility]: Cholo Alicea MD Urine RBC's 0 TO 2 Normal 0-2 [facility] Comment on above: Performed By: #### U MICAO, UAX #### [facility] [address] [place] [address] [facility]: Cholo Alicea MD Urine WBC's 0 TO 2 Normal 0-5 [facility] Comment on above: Performed By: #### U MICAO, UAX #### [facility] [address] [place], [place] [id number] [facility]: Cholo Alicea MD No Panel Informationon 06-17 Body mass index (BMI) [Percentile] Per age and sex 0.1 {percentile} Invalid Interpretation Code OrtegaZiipa [id number] Per age and sex 0.1 {percentile} Invalid Interpretation Code Ortega[facility]iip[facility] HEP B SURFACE ANTIGEN SCREEN on 06-08-2022 HBsAg Screen Negative Normal Negative [facility] Comment on above: Performed By: #### U ACSIND #### [facility] [address] [place] [address] Dr. Adrianna Caldera HEPATITIS C VIRUS AB W/ REFL EX QUANTon 06-08-2022 HCV AB <0.1 Normal 0.0-0.9 [facility] Comment on above: Performed By: #### U ACSIND #### [facility] [address] [place] [address] Dr. Adrianna Caldera Interpretation: Comment Normal [facility] Comment on above: Result Comment: Nega tive Not infected with HCV, unless recent infection is suspected or other evidence exists to indicate HCV infection. Performed By: #### U ACSIND #### [facility] [address] [place] [address] [address] Adrianna Caldera HIV 1 AND 2 WITH REFLEXon HIV Screen 4th Generation wRfx Non-Reactive Normal Non Reactive [facility] Comment on above: Result Comment: HIV Negative HIV-1/HIV-2 antibodies and HIV-1 p24 antigen were NOT detected. There is no laboratory evidence of HIV infection. Performed By: #### U ACSIND #### [facility] [address] [place] [address] Dr. Adrianna Caldera RPR QUANTon 06-08-2022 Rapid Plasma Reagin, Quant Non-Reactive Normal NonRea<1:1 [facility] Comment on above: Result Comment: Plea se Note: This test does not meet current guidelines for screening and diagnosis of syphilis. This test is intended for following treatment response in patients being treated for syphilis infection. To screen for syphilis infection, a reflex cascade that includes both RPR and a treponema-specific assay should be utilized, such as Treponema pallidum (Syphilis) Screening [place] (769728) or Rapid Plasma Reagin (RPR) Test With Reflex to Quantitative RPR and Confirmatory Treponema pallidum Antibodies (754626). Performed By: #### U ACSIND #### [facility] [address] [place] [address] Dr. Adrianna Caldera RUBELLA AB IGGon 06-08-2022 Rubella Antibodies, IgG 4.69 index Normal Immu ne >0.99 [facility] Comment on above: Result Comment: Non- immune <0.90 Equivocal 0.90 - 0.99 Immune >0.99 Performed By: #### R UBIGG ####[facility] [id number] [place] [address]Dr. Adrianna Caldera CBC AUTO DIFFon 06-05-2022 BASO # 0.0 103/ul Normal 0.0-0.1 [facility] Comment on above: Performed By: #### C BC #### [facility] [address] [place] [address] Dr. Adrianna Caldera Basophils/100 WBC (Bld) 0.3 % Normal 0.2-2.0 [facility] Comment on above: Performed By: #### C BC #### [facility] [address] [place] [address] Dr. Adrianna Caldera EO # 0.1 103/ul Normal 0.0-0.7 [facility] Comment on above: Performed By: #### C BC #### [facility] [address] [place] [address] Dr. Adrianna Caldera Eosinophils/100 WBC (Bld) 0.6 % Critically low 0.9-7.0 [facility] Comment on above: Performed By: #### C BC #### [facility] [address] [place] [address] Dr. Adrianna Caldera Erythrocyte distribution width (RBC) [Ratio] 11.7 % Normal 11.0-15.0 [facility] Comment on above: Performed By: #### C BC #### [facility] [address] [place] [address] Dr. Adrianna Caldera Hematocrit (Bld) [Volume fraction] 33.8 % Critically low 36.0-48.0 [facility] Comment on above: Performed By: #### C BC #### [facility] [address] [place] [address] Dr. Adrianna Caldera Hemoglobin (Bld) [Mass/Vol] 12.6 g/dL Normal 12.0-16.0 [facility] Comment on above: Performed By: #### C BC #### [facility] [address] [place] [address] Dr. Adrianna Caldera IG # 0.05 10e3/ul Critically high 0.00-0.03 [facility] Comment on above: Performed By: #### C BC #### [facility] [address] [place] [address] Dr. Adrianna Caldera IG % 0.4 % Normal 0.0-0.5 [facility] Comment on above: Performed By: #### C BC #### [facility] [address] [place] [address] Dr. Adrianna Caldera LYMPH # 2.4 103/ul Normal 1.2-3.8 [facility] Comment on above: Performed By: #### C BC #### [facility] [address] [place] [address] Dr. Adrianna Caldera Lymphocytes/100 WBC (Bld) 21.1 % Normal 20.5-60.0 [facility] Comment on above: Performed By: #### C BC #### [facility] [address] [place] [address] Dr. Adrianna Caldera MANUAL DIFF REQ NO Normal [facility] Comment on above: Performed By: #### C BC #### [facility] [address] [place] [address] Dr. Adrianna Caldera MCH (RBC) [Entitic mass] 30.3 pg Normal 26.7-34.0 [facility] Comment on above: Performed By: #### C BC #### [facility] [address] [address] [address] Adrianna Caldera MCHC (RBC) [Mass/Vol] 37.3 g/dL Critically high 29.9-35.2 [facility] Comment on above: Performed By: #### C BC #### [facility] [address] [address] [address] Adrianna Caldera MCV (RBC) [Entitic vol] 81.3 fL Normal 81.0-99.0 [facility] Comment on above: Performed By: #### C BC #### [facility] [address] [address] [address] Adrianna Caldera MONO # 0.6 103/ul Normal 0.3-0.8 [facility] Comment on above: Performed By: #### C BC #### [facility] [address] [address] [address] Adrianna Caldera Monocytes/100 WBC (Bld) 5.4 % Normal 1.7-12.0 [facility] Comment on above: Performed By: #### C BC #### [facility] [address] [address] [address] Adrianna Caldera NEUT # 8.3 103/ul Critically high 1.4-6.5 [facility] Comment on above: Performed By: #### C BC #### [facility] [address] [address] [address] Adrianna Caldera Neutrophils/100 WBC (Bld) 72.2 % Normal 43.0-75.0 [facility] Comment on above: Performed By: #### C BC #### [facility] [address] [address] [address] Adrianna Caldera Platelet mean volume (Bld) [Entitic vol] 10.6 fL Normal 9.5-13.5 [facility] Comment on above: Performed By: #### C BC #### [facility] [address] [address] [address] Adrianna Caldera PLT 253 103/ul Normal 150-450 [facility] Comment on above: Performed By: #### C BC #### [facility] [address] [address] [address] Adrianna Caldera RBC 4.16 106/ul Critically low 4.20-5.40 [facility] Comment on above: Performed By: #### C BC #### [facility] [facility] [address] [address] [address] Adrianna Caldera WBC 11.6 103/ul Critically high 4.0-11.0 [facility] Comment on above: Performed By: #### C BC #### [facility] [address] [address] [address] Adrianna aCldera CULTURE URINEon 06-05-2022 CULTURE URINE Culture Observations: LIGHT GROWTH OF MIXED GENITAL JIGAR. NO POTENTIAL PATHOGENS SEEN. Normal [facility] Comment on above: Performed By: #### U RCX ####[facility] [address] [place], [place] [address]Dr. Adrianna Caldera GLYCOHEMOGLOBIN A1Con 2022 ADA RECOMMENDATION SEE BELOW Normal [facility] Comment on above: Result Comment: ADA RECOMMENDED LIMIT 4.0 - 6.0 ADA THERAPEUTIC TARGET < 7.0 ACTION SUGGESTED > 7.0 Performed By: #### P REGQNT #### [facility] [address] [place] [address] Dr. Adrianna Caldera Glucose [Mass/Vol] 105 mg/dL Normal [facility] Comment on above: Performed By: #### P REGQNT #### [facility] [address] [address] [address] Adrianna Caldera HbA1c (Bld) [Mass fraction] 5.3 % Normal 4.5-6.2 [facility] Comment on above: Performed By: #### P REGQNT #### [facility] [address] [place] [address] Dr. Adrianna Caldera TYPE AND SCREENon 06-05-2022 TYPE AND SCREEN Negative Normal [facility] Comment on above: Performed By: #### T NS ####[facility] [address] [place], [place] [address]Dr. Adrianna Caldera US PREG <14 WKSon 05-27-2022 [...] GOVIND JOHNSTON Date: 2022-05-26 22:31 Normal [facility] CBC AUTO DIFFon 05-26-2022 BASO # 0.1 103/ul Normal 0.0-0.1 [facility] Comment on above: Performed By: #### U ACSIND #### [facility] [address] [address] [address] Adrianna Caldera Basophils/100 WBC (Bld) 0.5 % Normal 0.2-2.0 [facility] Comment on above: Performed By: #### U ACSIND #### [facility] [address] [address] [address] Adrianna Caldera EO # 0.1 103/ul Normal 0.0-0.7 [facility] Comment on above: Performed By: #### U ACSIND #### [facility] [address] [address] [address] Adrianna Caldera Eosinophils/100 WBC (Bld) 0.5 % Critically low 0.9-7.0 [facility] Comment on above: Performed By: #### U ACSIND #### [facility] [address] [place] [address] Dr. Adrianna Caldera Erythrocyte distribution width (RBC) [Ratio] 11.9 % Normal 11.0-15.0 [facility] Comment on above: Performed By: #### U ACSIND #### [facility] [address] [place] [address] Dr. Adrianna Caldera Hematocrit (Bld) [Volume fraction] 37.5 % Normal 36.0-48.0 [facility] Comment on above: Performed By: #### U ACSIND #### [facility] [address] [place] [address] Dr. Adrianna Caldera Hemoglobin (Bld) [Mass/Vol] 12.8 g/dL Normal 12.0-16.0 [facility] Comment on above: Performed By: #### U ACSIND #### [facility] [address] [place] [address] Dr. Adrianna Caldera IG # 0.04 10e3/ul Critically high 0.00-0.03 [facility] Comment on above: Performed By: #### U ACSIND #### [facility] [address] [place] [address] Dr. Adrianna Caldera IG % 0.4 % Normal 0.0-0.5 [facility] Comment on above: Performed By: #### U ACSIND #### [facility] [address] [place] [address] Dr. Adrianna Caldera LYMPH # 3.0 103/ul Normal 1.2-3.8 [facility] Comment on above: Performed By: #### U ACSIND #### [facility] [address] [place] [address] Dr. Adrianna Caldera Lymphocytes/100 WBC (Bld) 27.0 % Normal 20.5-60.0 [facility] Comment on above: Performed By: #### U ACSIND #### [facility] [address] [address] [address] Adrianna Caldera MANUAL DIFF REQ NO Normal [facility] Comment on above: Performed By: #### U ACSIND #### [facility] [address] [place] [address] Dr. Adrianna Caldera MCH (RBC) [Entitic mass] 29.8 pg Normal 26.7-34.0 [facility] Comment on above: Performed By: #### U ACSIND #### [facility] [address] [place] [address] Dr. Adrianna Caldera MCHC (RBC) [Mass/Vol] 34.1 g/dL Normal 29.9-35.2 [facility] Comment on above: Performed By: #### U ACSIND #### [facility] [address] [place] [address] Dr. Adrianna Caldera MCV (RBC) [Entitic vol] 87.4 fL Normal 81.0-99.0 [facility] Comment on above: Performed By: #### U ACSIND #### [facility] [address] [place] [address] Dr. Adrianna Caldera MONO # 0.7 103/ul Normal 0.3-0.8 [facility] Comment on above: Performed By: #### U ACSIND #### [facility] [address] [place] [address] Dr. Adrianna Caldera Monocytes/100 WBC (Bld) 6.3 % Normal 1.7-12.0 [facility] Comment on above: Performed By: #### U ACSIND #### [facility] [address] [place] [address] Dr. Adrianna Caldera NEUT # 7.2 103/ul Critically high 1.4-6.5 [facility] Comment on above: Performed By: #### U ACSIND #### [facility] [address] [place] [address] Dr. Adrianna Caldera Neutrophils/100 WBC (Bld) 65.3 % Normal 43.0-75.0 [facility] Comment on above: Performed By: #### U ACSIND #### [facility] [address] [address] [address] Adrianna Caldera Platelet mean volume (Bld) [Entitic vol] 10.3 fL Normal 9.5-13.5 [facility] Comment on above: Performed By: #### U ACSIND #### [facility] [address] [address] [address] Adrianna Caldera PLT 316 103/ul Normal 150-450 [facility] Comment on above: Performed By: #### U ACSIND #### [facility] [address] [address] [address] Adrianna Caldera RBC 4.29 106/ul Normal 4.20-5.40 [facility] Comment on above: Performed By: #### U ACSIND #### [facility] [address] [address] [address] Adrianna Caldera WBC 11.0 103/ul Normal 4.0-11.0 [facility] Comment on above: Performed By: #### U ACSIND #### [facility] [address] ABD/PELV W CONon [...] ISIDRO AVILA Date: 2022-05-26 19:39 Normal [facility]30 SARS-CoV-2 (COVID-19) RNA ALEKSANDER+probe Ql (Unsp spec) Not detected Normal NOT DETECTED [facility] Comment on above: Result Comment: When [...] for this test is supported by the [place] of Health and Human Service's declaration that [...] used). Performed By: #### U ACSIND #### [facility] [address] [place] [address] Dr. Adrianna Caldera ER URINE PROFILEon 2 Bilirubin Ql (U) Negative Normal NEGATIVE [facility] Comment on above: Performed By: #### P REGQNT #### [facility] [address] [place] [address] Dr. Adrianna Caldera Clarity (U) CLEAR Normal CLEAR [facility] Comment on above: Performed By: #### P REGQNT #### [facility] [address] [place] [address] Dr. Adrianna aCldera Color (U) YELLOW Normal YELLOW [facility] Comment on above: Performed By: #### P REGQNT #### [facility] [address] [address] [address] Adrianna LINARES A micrscopic examination will be performed if indicated. Normal [facility] Comment on above: Performed By: #### P REGQNT #### [facility] [address] [place] [address] Dr. Adrianna Caldera Glucose Ql (U) Negative Normal NEGATIVE [facility] Comment on above: Performed By: #### P REGQNT #### [facility] [address] [address] [address] Adrianna Caldera Hemoglobin Ql (U) Negative Normal [facility] Comment on above: Performed By: #### P REGQNT #### [facility] [address] [place] [address] Dr. Adrianna Caldera Ketones Ql (U) 15 mg/dl Abnormal NEGATIVE [facility] Comment on above: Performed By: #### P REGQNT #### [facility] [address] [place] [address] Dr. Adrianna Caldera LEUKOCYTES Negative Normal NEGATIVE [facility] Comment on above: Performed By: #### P REGQNT #### [facility] [address] [place] [address] Dr. Adrianna Caldera Nitrite Ql (U) Negative Normal NEGATIVE [facility] Comment on above: Performed By: #### P REGQNT #### [facility] [address] [place] [address] Dr. Adrianna Caldera pH (U) 7.5 [pH] Normal 5-9 [facility] Comment on above: Performed By: #### P REGQNT #### [facility] [address] [address] [address] Adrianna Caldera SPEC GRAVITY 1.020 Normal 1.005-<=1.0 25 [facility] Comment on above: Performed By: #### P REGQNT #### [facility] [address] [place] [address] Dr. Adrianna Caldera UA PROTEIN Negative Normal NEGATIVE/ TRACE [facility] Comment on above: Performed By: #### P REGQNT #### [facility] [address] [place] [address] Dr. Adrianna Caldera UR MICRO IND NOT INDICATED Normal [facility] Comment on above: Performed By: #### P REGQNT #### [facility] [address] [place] [address] Dr. Adrianna Caldera Urobilinogen Qn (U) 0.2 {Micheal'U}/dL Normal 0.2 - 1. 0 [facility] Comment on above: Performed By: #### P REGQNT #### [facility] [address] [place] [address] Dr. Adrianna Caldera LIPASEon 05-26-2022 Lipase [Catalytic activity/Vol] 116.0 U/L Normal 73.0-393.0 [facility] Comment on above: Performed By: #### L IPA, CMP #### [facility] [address] [place] [address] Dr. Adrianna Caldera PROF 14(COMP METB)on 022 Albumin [Mass/Vol] 3.6 g/dL Normal 3.4-5.0 [facility] Comment on above: Performed By: #### L IPA, CMP #### [facility] [address] [place] [address] Dr. Adrianna Caldera Albumin/Globulin [Mass ratio] 0.9 {ratio} Normal [facility] Comment on above: Performed By: #### L IPA, CMP #### [facility] [address] [place] [address] Dr. Adrianna Caldera ALP [Catalytic activity/Vol] 57 U/L Normal 46-116 [facility] Comment on above: Performed By: #### L IPA, CMP #### [facility] [address] [place] [address] Dr. Adrianna Caldera ALT [Catalytic activity/Vol] 13 U/L Critically low 14-59 [facility] Comment on above: Performed By: #### L IPA, CMP #### [facility] [address] [place] [address] Dr. Adrianna Caldera Anion gap [Moles/Vol] 10.6 mmol/L Normal [facility] Comment on above: Performed By: #### L IPA, CMP #### [facility] [address] [place] [address] Dr. Adrianna Caldera AST [Catalytic activity/Vol] 12 U/L Critically low 15-37 [facility] Comment on above: Performed By: #### L IPA, CMP #### [facility] [address] [address] [address] Adrianna Caldera Bilirubin [Mass/Vol] 0.2 mg/dL Normal 0.2-1.0 [facility] Comment on above: Performed By: #### L IPA, CMP #### [facility] [address] [place] [address] Dr. Adrianna Caldera Calcium [Mass/Vol] 8.9 mg/dL Normal 8.5-10.1 [facility] Comment on above: Performed By: #### L IPA, CMP #### [facility] [address] [place] [address] Dr. Adrianna Caldera Chloride [Moles/Vol] 102 mmol/L Normal 98-107 [facility] Comment on above: Performed By: #### L IPA, CMP #### [facility] [address] [place] [address] Dr. Adrianna Caldera CO2 [Moles/Vol] 26.0 mmol/L Normal 21.0-32.0 [facility] Comment on above: Performed By: #### L IPA, CMP #### [facility] [address] [place] [address] Dr. Adrianna Caldera Creatinine [Mass/Vol] 0.61 mg/dL Normal 0.55-1.02 [facility] Comment on above: Performed By: #### L IPA, CMP #### [facility] [address] [place] [address] Dr. Adrianna Caldera EGFR-AF DJIBOUTIAN >60 Normal >=60 [facility] Comment on above: Performed By: #### L IPA, CMP #### [facility] [address] [place] [address] Dr. Adrianna Caldera EGFR-NON AF DJIBOUTIAN >60 Normal >=60 [facility] Comment on above: Performed By: #### L IPA, CMP #### [facility] [address] [address] [address] Adrianna Caldera Globulin (S) [Mass/Vol] 3.8 g/dL Normal [facility] Comment on above: Performed By: #### L IPA, CMP #### [facility] [address] [address] [address] Adrianna Caldera Glucose [Mass/Vol] 82 mg/dL Normal 74-106 [facility] Comment on above: Performed By: #### L IPA, CMP #### [facility] [address] [address] [address] Adrianna Caldera Potassium [Moles/Vol] 3.6 mmol/L Normal 3.5-5.1 [facility] Comment on above: Performed By: #### L IPA, CMP #### [facility] [address] [place] [address] Dr. Adrianna Caldera Protein [Mass/Vol] 7.4 g/dL Normal 6.4-8.2 [facility] Comment on above: Performed By: #### L IPA, CMP #### [facility] [address] [place] [address] Dr. Adrianna Caldera Sodium [Moles/Vol] 135 mmol/L Critically low 136-145 [facility] Comment on above: Performed By: #### L IPA, CMP #### [facility] [address] [place] [address] Dr. Adrianna Caldera Urea nitrogen [Mass/Vol] 9.0 mg/dL Normal 7.0-18.0 [facility] Comment on above: Performed By: #### L IPA, CMP #### [facility] [address] [place] [address] Dr. Adrianna Caldera Urea nitrogen/Creatinine [Mass ratio] 14.8 mg/mg Normal [facility] Comment on above: Performed By: #### L IPA, CMP #### [facility] [address] [place] [address] Dr. Adrianna Caldera No Panel Informationon 05-17 Body mass index (BMI) [Percentile] Per age and sex 0.1 {percentile} Invalid Interpretation Code [employer] [id number] Per age and sex 0.1 {percentile} Invalid Interpretation Code [employer] US PREG TVon 05-01-2022 US PREG TV [...] by: KAROL SIDDIQUI Date: 2022-04-30 22:06 Normal [facility] US PREG TVon 04-08-2022 US PREG TV [...] by: KAROL SIDDIQUI Date: 2022-04-08 17:08 Normal [facility] PELVIS TRANSVAGon 022 US PELVIS TRANSVAG [...] by: CINDY NOGUEIRA Date: 2022-03-22 22:47 Normal [facility] CBC AUTO DIFFon 03-22-2022 BASO # 0.1 103/ul Normal 0.0-0.1 [facility] Comment on above: Performed By: #### U ACSIND #### [facility] [address] [address] [address] Adrianna Caldera Basophils/100 WBC (Bld) 0.5 % Normal 0.2-2.0 [facility] Comment on above: Performed By: #### U ACSIND #### [facility] [address] [address] [address] Adrianna Caldera EO # 0.1 103/ul Normal 0.0-0.7 [facility] Comment on above: Performed By: #### U ACSIND #### [facility] [address] [address] [address] Adrianna Caldera Eosinophils/100 WBC (Bld) 0.6 % Critically low 0.9-7.0 [facility] Comment on above: Performed By: #### U ACSIND #### [facility] [address] [address] [address] Adrianna Caldera Erythrocyte distribution width (RBC) [Ratio] 12.6 % Normal 11.0-15.0 [facility] Comment on above: Performed By: #### U ACSIND #### [facility] [address] [address] [address] Adrianna Caldera Hematocrit (Bld) [Volume fraction] 40.0 % Normal 36.0-48.0 [facility] Comment on above: Performed By: #### U ACSIND #### [facility] [address] [address] [address] Adrianna Caldera Hemoglobin (Bld) [Mass/Vol] 13.6 g/dL Normal 12.0-16.0 [facility] Comment on above: Performed By: #### U ACSIND #### [facility] [address] [address] [address] Adrianna Caldera IG # 0.03 10e3/ul Normal 0.00-0.03 [facility] Comment on above: Performed By: #### U ACSIND #### [facility] [address] [address] [address] Adrianna Caldera IG % 0.3 % Normal 0.0-0.5 [facility] Comment on above: Performed By: #### U ACSIND #### [facility] [address] [place] [address] Dr. Adrianna Caldera LYMPH # 4.4 103/ul Critically high 1.2-3.8 [facility] Comment on above: Performed By: #### U ACSIND #### [facility] [address] [place] [address] Dr. Adrianna Caldera Lymphocytes/100 WBC (Bld) 38.4 % Normal 20.5-60.0 [facility] Comment on above: Performed By: #### U ACSIND #### [facility] [address] [address] [address] Adrianna Caldera MANUAL DIFF REQ NO Normal [facility] Comment on above: Performed By: #### U ACSIND #### [facility] [address] [address] [address] Adrianna Caldera MCH (RBC) [Entitic mass] 30.2 pg Normal 26.7-34.0 [facility] Comment on above: Performed By: #### U ACSIND #### [facility] [address] [address] [address] Adrianna Caldera MCHC (RBC) [Mass/Vol] 34.0 g/dL Normal 29.9-35.2 [facility] Comment on above: Performed By: #### U ACSIND #### [facility] [address] [address] [address] Adrianna Caldera MCV (RBC) [Entitic vol] 88.9 fL Normal 81.0-99.0 [facility] Comment on above: Performed By: #### U ACSIND #### [facility] [address] [address] [address] Adrianna Caldera MONO # 0.7 103/ul Normal 0.3-0.8 [facility] Comment on above: Performed By: #### U ACSIND #### [facility] [address] [place] [address] Dr. Adrianna Caldera Monocytes/100 WBC (Bld) 6.2 % Normal 1.7-12.0 [facility] Comment on above: Performed By: #### U ACSIND #### [facility] [address] [place] [address] Dr. Adrianna Caldera NEUT # 6.1 103/ul Normal 1.4-6.5 [facility] Comment on above: Performed By: #### U ACSIND #### [facility] [address] [place] [address] Dr. Adrianna Caldera Neutrophils/100 WBC (Bld) 54.0 % Normal 43.0-75.0 [facility] Comment on above: Performed By: #### U ACSIND #### [facility] [address] [place] [address] Dr. Adrianna Caldera Platelet mean volume (Bld) [Entitic vol] 10.9 fL Normal 9.5-13.5 [facility] Comment on above: Performed By: #### U ACSIND #### [facility] [address] [place] [address] Dr. Adrianna Caldera PLT 277 103/ul Normal 150-450 [facility] Comment on above: Performed By: #### U ACSIND #### [facility] [address] [place] [address] Dr. Adrianna Caldera RBC 4.50 106/ul Normal 4.20-5.40 [facility] Comment on above: Performed By: #### U ACSIND #### [facility] [address] [address] [address] Adrianna Caldera WBC 11.3 103/ul Critically high 4.0-11.0 [facility] Comment on above: Performed By: #### U ACSIND #### [facility] [address] [address] [address] Adrianna Caldera ER URINE PROFILEon 2 Bilirubin Ql (U) Negative Normal NEGATIVE [facility] Comment on above: Performed By: #### P REGU, ERUR ####[facility] [address] [address] Adrianna Caldera Clarity (U) CLEAR Normal CLEAR [facility] Comment on above: Performed By: #### P REGU, ERUR ####[facility] [address] [address]Dr. Adrianna Caldera Color (U) LT. YELLOW Normal YELLOW [facility] Comment on above: Performed By: #### P REGU, ERUR ####[facility] [address] [address]. Adrianna LINARES A micrscopic examination will be performed if indicated. Normal [facility] Comment on above: Performed By: #### P REGU, ERUR ####[facility] [address] [address]Dr[address] Adrianna Caldera Glucose Ql (U) Negative Normal NEGATIVE [facility] Comment on above: Performed By: #### P REGU, ERUR ####[facility] [address] [address]Dr. Adrianna Caldera Hemoglobin Ql (U) Negative Normal NEGATIVE [facility] Comment on above: Performed By: #### P REGU, ERUR ####[facility] [address] [place], [place] [address]Dr. Adrianna Caldera Ketones Ql (U) Negative Normal NEGATIVE [facility] Comment on above: Performed By: #### P REGU, ERUR ####[facility] [address] [place], [place] [address]Dr. Adrianna Caldera LEUKOCYTES Negative Normal NEGATIVE [facility] Comment on above: Performed By: #### P REGU, ERUR ####[facility] [address] [address] Adrianna Caldera Nitrite Ql (U) Negative Normal NEGATIVE [facility] Comment on above: Performed By: #### P REGU, ERUR ####[facility] [address] [address]DrAung Caldera pH (U) 6.0 [pH] Normal 5-9 [facility] Comment on above: Performed By: #### P REGU, ERUR ####[facility] [address] [address]DrAung Caldera SPEC GRAVITY <=1.005 Abnormal 1.005-<=1.0 25 [facility] Comment on above: Performed By: #### P REGU, ERUR ####[facility] [address] [place], [place] [address]Dr. Adrianna Caldera UA PROTEIN Negative Normal NEGATIVE/ TRACE [facility] Comment on above: Performed By: #### P REGU, ERUR ####[facility] [address] [place], [place] [address]Dr. Adrianna Caldera UR MICRO IND NOT INDICATED Normal [facility] Comment on above: Performed By: #### P REGU, ERUR ####[facility] [address] [place], [place] [address]DrAung Caldera Urobilinogen Qn (U) 0.2 {Micheal'U}/dL Normal 0.2 - 1. 0 [facility] Comment on above: Performed By: #### P REGU, ERUR ####[facility] [address] [place], [place] [address]DrAung Caldera PREG QUANT HCGon 03-22-2022 HCG QUANT 2 mIU/mL Normal [facility] Comment on above: Performed By: #### P REGQNT #### [facility] [address] [address] [address] Adrianna Caldera HCG RANGE SEE BELOW Normal [facility] Comment on above: Result Comment: 5-50 0.2-1 WEEK 50-500 1-2 WEEKS 100-5,000 2-3 WEEKS 500-10,000 3-4 WEEKS 1,000-50,000 4-5 WEEKS 10,000-100,000 5-6 WEEKS 15,000-200,000 6-8 WEEKS 10,000-100,000 2-3 MONTHS Performed By: #### P REGQNT #### [facility] [address] [address] [address] Adrianna Caldera URon 03-22-2022 , QUAL Negative Normal NEGATIVE [facility] Comment on above: Performed By: #### P REGU, ERUR ####[facility] [address] [address]Dr[address] Adrianna Caldera PROF CHEM 8 (BAS METB)on Anion gap [Moles/Vol] 10.9 mmol/L Normal [facility] Comment on above: Performed By: #### U ACSIND #### [facility] [address] [address] [address] Adrianna Caldera Calcium [Mass/Vol] 9.1 mg/dL Normal 8.5-10.1 [facility] Comment on above: Performed By: #### U ACSIND #### [facility] [address] [address] [address] Adrianna Caldera Chloride [Moles/Vol] 105 mmol/L Normal 98-107 [facility] Comment on above: Performed By: #### U ACSIND #### [facility] [address] [address] [address] Adrianna Caldera CO2 [Moles/Vol] 26.0 mmol/L Normal 21.0-32.0 [facility] Comment on above: Performed By: #### U ACSIND #### [facility] [address] [address] [address] Adrianna Caldera Creatinine [Mass/Vol] 0.98 mg/dL Normal 0.55-1.02 [facility] Comment on above: Performed By: #### U ACSIND #### [facility] Laboratory [address] [address] [address] Adrianna Caldera EGFR-AF DJIBOUTIAN >60 Normal >=60 [facility] Comment on above: Performed By: #### U ACSIND #### [facility] [address] [address] [address] Adrianna Caldera EGFR-NON AF DJIBOUTIAN >60 Normal >=60 [facility] Comment on above: Performed By: #### U ACSIND #### [facility] [address] [address] [address] Adrianna Caldera Glucose [Mass/Vol] 87 mg/dL Normal 74-106 [facility] Comment on above: Performed By: #### U ACSIND #### [facility] [address] [address] [address] Adrianna Caldera Potassium [Moles/Vol] 3.9 mmol/L Normal 3.5-5.1 [facility] Comment on above: Performed By: #### U ACSIND #### [facility] [address] [address] [address] Adrianna Caldera Sodium [Moles/Vol] 138 mmol/L Normal 136-145 [facility] Comment on above: Performed By: #### U ACSIND #### [facility] [address] [address] [address] Adrianna Caldera Urea nitrogen [Mass/Vol] 11.0 mg/dL Normal 7.0-18.0 [facility] Comment on above: Performed By: #### U ACSIND #### [facility] [address] [address] [address] Adrianna Caldera Urea nitrogen/Creatinine [Mass ratio] 11.2 mg/mg Normal [facility] Comment on above: Performed By: #### U ACSIND #### [facility] [address] [address] [address] Adrianna Caldera PREG QUANT HCGon 03-03-2022 HCG QUANT 1 mIU/mL Normal [facility] Comment on above: Performed By: #### P REGQNT #### [facility] [address] [place] [address] Dr. Adrianna Caldera HCG RANGE SEE BELOW Normal [facility] Comment on above: Result Comment: 5-50 0.2-1 WEEK 50-500 1-2 WEEKS 100-5,000 2-3 WEEKS 500-10,000 3-4 WEEKS 1,000-50,000 4-5 WEEKS 10,000-100,000 5-6 WEEKS 15,000-200,000 6-8 WEEKS 10,000-100,000 2-3 MONTHS Performed By: #### P REGQNT #### [facility] [address] [address] [address] Adrianna Caldera Creatinine and Glomerular fi ltration rate.predicted panel (S/P/Bld)Ordered By: Tae Natarajan on 02-10-2022 Creatinine [Mass/Vol] 1.03 mg/dL 0.44-1.03 [facility] Estimated glomerular filtrat ion rate (GFR) non- AmericanOrdered By: Tae Natarajan on 02-10-2022 GFR/1.73 sq M.predicted among non-blacks MDRD (S/P/Bld) [Vol rate/Area] > 60 mL/Min [facility] HCG ( test) IA.rapi d Ql (U)Ordered By: Tae Natarajan on 02-10-2022 HCG ( test) Ql (U) Negative [facility] No Panel InformationOrdered By: Tae Natarajan on 02-10-2022 Estimated GFR () > 60 mL/Min [facility] Comment on above: GFR estimated refere nce range: According to KDOQI guidelines, <60 ml/min/1.73m2 is sufficient to diagnose a patient with chronic kidney disease. Pharmacy Creatinine Clearance (Chem 88.89 [facility] Serum or plasma urea nitroge n measurement (mass/volume)Ordered By: Tae Natarajan on 02-10-2022 Urea nitrogen [Mass/Vol] 9 mg/dL 02-19 [facility] PREG QUANT HCGon 12-04-2021 HCG QUANT <1 Normal [facility] Comment on above: Performed By: #### P REGQNT #### [facility] [address] [address] [address] Adrianna Caldera HCG RANGE SEE BELOW Normal [facility] Comment on above: Result Comment: 5-50 0-1 WEEK 40-300 1-2 WEEKS 100-1,000 2-3 WEEKS 500-6,000 3-4 WEEKS 5,000-200,000 1-2 MONTHS 10,000-100,000 2-3 MONTHS 3,000-50,000 2ND TRIMESTER 1,000-50,000 3RD TRIMESTER Performed By: #### P REGQNT #### [facility] [address], [place] [address] Dr. Adrianna Caldera CBC AUTO DIFFon 11-14-2021 BASO # 0.1 103/ul Normal 0.0-0.1 [facility] Comment on above: Performed By: #### C BC ####[facility] [address] [address]DrAung Caldera Basophils/100 WBC (Bld) 0.5 % Normal 0.2-2.0 [facility] Comment on above: Performed By: #### C BC ####[facility] [address] [address]DrAung Caldera EO # 0.1 103/ul Normal 0.0-0.7 [facility] Comment on above: Performed By: #### C BC ####[facility] [address] [address]Dr. Adrianna Caldera Eosinophils/100 WBC (Bld) 0.8 % Critically low 0.9-7.0 [facility] Comment on above: Performed By: #### C BC ####[facility] [address] [address]DrAung Caldera Erythrocyte distribution width (RBC) [Ratio] 13.0 % Normal 11.0-15.0 [facility] Comment on above: Performed By: #### C BC ####[facility] [address] [id number] Caldera Hematocrit (Bld) [Volume fraction] 38.5 % Normal 36.0-48.0 [facility] Comment on above: Performed By: #### C BC ####[facility] [address] [id number]. Adrianna Caldera Hemoglobin (Bld) [Mass/Vol] 12.9 g/dL Normal 12.0-16.0 [facility] Comment on above: Performed By: #### C BC ####[facility] [address] [id number]. Adrianna Caldera IG # 0.03 10e3/ul Normal 0.00-0.03 [facility] Comment on above: Performed By: #### C BC ####[facility] [address] [id number]. Adrianna Caldera IG % 0.3 % Normal 0.0-0.5 [facility] Comment on above: Performed By: #### C BC ####[facility] [address] [address]Dr. Adrianna Caldera LYMPH # 2.8 103/ul Normal 1.2-3.8 [facility] Comment on above: Performed By: #### C BC ####[facility] [address] [address]Dr. Adrianna Caldera Lymphocytes/100 WBC (Bld) 27.4 % Normal 20.5-60.0 [facility] Comment on above: Performed By: #### C BC ####[facility] [address] [address]Dr. Adrianna Caldera MANUAL DIFF REQ NO Normal [facility] Comment on above: Performed By: #### C BC ####[facility] [address] [id number]. Adrianna Caldera MCH (RBC) [Entitic mass] 29.7 pg Normal 26.7-34.0 [facility] Comment on above: Performed By: #### C BC ####[facility] [address] [id number]. Adrianna Caldera MCHC (RBC) [Mass/Vol] 33.5 g/dL Normal 29.9-35.2 [facility] Comment on above: Performed By: #### C BC ####[facility] [address] [place], [place] [address]Dr. Adrianna Caldera MCV (RBC) [Entitic vol] 88.7 fL Normal 81.0-99.0 [facility] Comment on above: Performed By: #### C BC ####[facility] [address] [address]Dr. Adrianna Caldera MONO # 0.7 103/ul Normal 0.3-0.8 [facility] Comment on above: Performed By: #### C BC ####[facility] [address] [address]Dr. Adrianna Werner Monocytes/100 WBC (Bld) 6.5 % Normal 1.7-12.0 [facility] Comment on above: Performed By: #### C BC ####[facility] [address] [place], [place] [address]Dr. Adrianna Caldera NEUT # 6.5 103/ul Normal 1.4-6.5 [facility] Comment on above: Performed By: #### C BC ####[facility] [address] [place], [place] [address]Dr. Adrianna Werner Neutrophils/100 WBC (Bld) 64.5 % Normal 43.0-75.0 [facility] Comment on above: Performed By: #### C BC ####[facility] [address] [place], [place] [address]Dr. Adrianna Werner Platelet mean volume (Bld) [Entitic vol] 10.4 fL Normal 9.5-13.5 [facility] Comment on above: Performed By: #### C BC ####[facility] [address] [place], [place] [address]Dr. Adrianna Werner PLT 324 103/ul Normal 150-450 [facility] Comment on above: Performed By: #### C BC ####[facility] [address] [place], [place] [address]Dr. Adrianna Werner RBC 4.34 106/ul Normal 4.20-5.40 [facility] Comment on above: Performed By: #### C BC ####[facility] [address] [place], [place] [address]Dr. Adrianna Werner WBC 10.1 103/ul Normal 4.0-11.0 [facility] Comment on above: Performed By: #### C BC ####[facility] [address] [place], [place] [address]Dr. Adrianna Cladera ER URINE PROFILEon 2 Bilirubin Ql (U) Negative Normal NEGATIVE [facility] Comment on above: Performed By: #### JOHN HAYNES UMICRO ####[facility] [address] [place], [place] [address]Dr. Adrianna Caldera Clarity (U) CLEAR Normal CLEAR [facility] Comment on above: Performed By: #### JOHN HAYNES UMICRO ####[facility] [address] [place], [place] [address]Dr. Adrinana Caldera Color (U) LT. YELLOW Normal YELLOW [facility] Comment on above: Performed By: #### JOHN HAYNES UMICRO ####[facility] [address] [place], [place] [address]Dr. Adrianna MORALESD A micrscopic examination will be performed if indicated. Normal [facility] Comment on above: Performed By: #### JOHN HAYNES UMICRO ####[facility] [address] [place], [place] [address]Dr. Adrianna Caldera Glucose Ql (U) Negative Normal NEGATIVE [facility] Comment on above: Performed By: #### JOHN HAYNES UMICRO ####[facility] [address] [place], [place] [address]Dr. Adrianna Caldera Hemoglobin Ql (U) LARGE Abnormal NEGATIVE [facility] Comment on above: Performed By: #### Rojelio MONDRAGON PREGU UMICRO ####[facility] [address] [place], [place] [address]Dr. Adrianna Caldera Ketones Ql (U) Negative Normal NEGATIVE [facility] Comment on above: Performed By: #### Rojelio RUAugie PREGU UMICRO ####[facility] [address] [place], [place] [address]Dr. Adrianna Caldera LEUKOCYTES Negative Normal NEGATIVE [facility] Comment on above: Performed By: #### HECTOR HAYNESU UMICRO ####[facility] [address] [address]Dr. Adrianna Caldera Nitrite Ql (U) Negative Normal NEGATIVE [facility] Comment on above: Performed By: #### HECTOR HAYNESU UMICRO ####[facility] [address] [address]Dr. Adrianna Caldera pH (U) 6.5 [pH] Normal 5-9 [facility] Comment on above: Performed By: #### JOHN HAYNES UMICRO ####[facility] [address] [address]Dr. Adrianna Caldera SPEC GRAVITY 1.015 Normal 1.005-<=1.0 25 [facility] Comment on above: Performed By: #### JOHN HAYNES UMICRO ####[facility] [address] [address]Dr. Adrianna Caldera UA PROTEIN Negative Normal NEGATIVE/ TRACE [facility] Comment on above: Performed By: #### JOHN HAYNES UMICRO ####[facility] [address] [address]Dr. Adrianna Caldera UR MICRO IND INDICATED Normal [facility] Comment on above: Performed By: #### JOHN HAYNES UMICRO ####[facility] [address] [address]Dr. Adrianna Caldera Urobilinogen Qn (U) 0.2 {Micheal'U}/dL Normal 0.2 - 1. 0 [facility] Comment on above: Performed By: #### Rojelio MONDRAGON PREGU UMICRO ####[facility] [address] [address]Dr. Jemimabenito Caldera URon 11-14-2021 , QUAL Negative Normal NEGATIVE [facility] Comment on above: Performed By: #### Rojelio RUAugie PREGU, UMICRO ####[facility] [address] [address]Dr. Adrianna Caldera PROF CHEM 8 (BAS METB)on Anion gap [Moles/Vol] 13.5 mmol/L Normal [facility] Comment on above: Performed By: #### U ACSIND #### [facility] [address] [address] [address] Adrianna Caldera Calcium [Mass/Vol] 8.7 mg/dL Normal 8.5-10.1 [facility] Comment on above: Performed By: #### U ACSIND #### [facility] [address] [address] [address] Adrianna Caldera Chloride [Moles/Vol] 102 mmol/L Normal 98-107 [facility] Comment on above: Performed By: #### U ACSIND #### [facility] [address] [address] [address] Adrianna Caldera CO2 [Moles/Vol] 27.3 mmol/L Normal 21.0-32.0 [facility] Comment on above: Performed By: #### U ACSIND #### [facility] [address] [address] [address] Adrianna Caldera Creatinine [Mass/Vol] 0.85 mg/dL Normal 0.55-1.02 [facility] Comment on above: Performed By: #### U ACSIND #### [facility] [address] [address] [address] Adrianna Caldera EGFR-AF DJIBOUTIAN >60 Normal >=60 [facility] Comment on above: Performed By: #### U ACSIND #### [facility] [address] [address] [address] Adrianna Caldera EGFR-NON AF DJIBOUTIAN >60 Normal >=60 [facility] Comment on above: Performed By: #### U ACSIND #### [facility] [address] [address] [address] Adrianna Caldera Glucose [Mass/Vol] 104 mg/dL Normal 74-106 [facility] Comment on above: Performed By: #### U ACSIND #### [facility] [address] [address] [address] Adrianna Caldera Potassium [Moles/Vol] 3.8 mmol/L Normal 3.5-5.1 [facility] Comment on above: Performed By: #### U ACSIND #### [facility] [address] [address] [address] Adrianna Caldera Sodium [Moles/Vol] 139 mmol/L Normal 136-145 [facility] Comment on above: Performed By: #### U ACSIND #### [facility] [address] [address] [address] Adrianna Caldera Urea nitrogen [Mass/Vol] 8.0 mg/dL Normal 7.0-18.0 [facility] Comment on above: Performed By: #### U ACSIND #### [facility] [address] [address] [address] Adrianna Caldera Urea nitrogen/Creatinine [Mass ratio] 9.4 mg/mg Normal [facility] Comment on above: Performed By: #### U ACSIND #### [facility] [address] [address] [address] Adrianna Caldera URINE MICROSCOPIC ONLYon BACTERIA NONE SEEN Normal NONE SEEN [facility] Comment on above: Performed By: #### JOHN HAYNES UMICRO ####[facility] [address] [address]DrAung Caldera Bacteria identified Cx Nom (U) NOT INDICATED Normal [facility] Comment on above: Performed By: #### HECTOR HAYNESU UMICRO ####[facility] [address] [id number] Caldera CAST NONE SEEN Normal NONE SEEN [facility] Comment on above: Performed By: #### E HECTOR MONDRAGONU UMICRO ####[facility] [address] [phone] Caldera Crystals LM Nom (Urine sed) NONE SEEN Normal NONE SEEN [facility] Comment on above: Performed By: #### E RUR PREGU, UMICRO ####[facility] [address] [place], [place] [address]Vv. Adrianna Caldera Epithelial cells LM Ql (Urine sed) RARE Normal NONE SEEN /RARE [facility] Comment on above: Performed By: #### JOHN HAYNES UMICRO ####[facility] [address] [place], [place] [address]Bn. Adrianna Caldera MUCOUS NONE SEEN Normal NONE SEEN [facility] Comment on above: Performed By: #### JOHN HAYNES UMICRO ####[facility] [address] [place], [place] [address]Lx. Adrianna Caldera RBC 10-20 Abnormal 0-2 [facility] Comment on above: Performed By: #### JOHN HAYNES UMICRO ####[facility] [address] [place], [place] [address]Wg. Adrianna Caldera WBC 0-2 Abnormal NONE SEEN [facility] Comment on above: Performed By: #### JOHN HAYNES UMICRO ####[facility] [address] [place], [place] [address]Pv. Adrianna Caldera HCG, Quantitative, on 10-12-2021 hCG Quant <1 <5 mIU/mL [facility] Comment on above: Non-preg premeno <=5 Postmeno <=8 Male <=3 If HCG results do not concur with clinical observations, additional testing to confirm results is recommended. Elevated results not associated with may be found in patients with other diseases such as tumors of the germ cells (testis, ovaries, etc.), bladder, pancreas, stomach, lungs, and liver. [facility] CBC with Auto Differentialon 10-11-2021 Absolute Eos # 0.08 [facility] Absolute Immature Granulocyte <0.03 [facility] Absolute Lymph # 1.85 [facility] alth Absolute Atkinson [facility].56 [facility] Basophils (Bld) [#/Vol] 0.04 10*3/uL [facility] Basophils/100 WBC (Bld) 1 % 0 - 2 % M [facility] Eosinophils/100 WBC (Bld) 1 % 1 - 4 % [facility] Hematocrit (Bld) [Volume fraction] 38.9 % 36.3 - 47.1 % [facility] Hemoglobin.gastrointest inal spec 1 Ql (Stl) 12.7 g/dL 11.9 - 15.1 g/dL [facility] Immature granulocytes/100 WBC (Bld) 0 % 0 [facility] Lymphocytes/100 WBC (Bld) 29 % 24 - 43 % [facility] MCH (RBC) [Entitic mass] 29.7 pg 25.2 - 33.5 pg [facility] MCHC (RBC) [Mass/Vol] 32.6 g/dL 28.4 - 34.8 g/dL [facility] MCV (RBC) [Entitic vol] 90.9 fL 82.6 - 102.9 fL [facility] Monocytes/100 WBC (Bld) 9 % 3 - 12 % M [facility] NRBC Automated 0.0 0.0 per 100 WBC [facility] Platelet distribution width (Bld) [Ratio] 12.9 % 11.8 - 14.4 % [facility] Platelet mean volume (Bld) [Entitic vol] 10.3 fL 8.1 - 13.5 fL [facility] Platelets (Bld) [#/Vol] 351 10*3/uL [facility] RBC (Bld) [#/Vol] 4.28 10*6/uL 3.95 - 5.1 1 m/uL [facility] Segmented neutrophils/100 WBC (Bld) 60 % 36 - 65 % [facility] Segs Absolute 3.90 [facility] [#/Vol] 6.5 10*3/uL [facility] CT ABDOMEN PELVIS W IV CONTR AST Additional Contrast? Noneon 10-11-2021 Radiology Study observation (narrative) [facility] Katelynn mehta Work Phone: Negative acute inflammatory process or bowel obstruction. [facility] RIS CONSOLIDATED EXAMINATION: CT OF THE ABDOMEN [...] No hydronephrosis. Gallbladder is not remarkable. GI/Bowel: Apjt-cq-nruqlibh retained stool without bowel obstruction. No pericecal inflammatory changes. Appendix unremarkable. Pelvis: There is mild prominence endometrial canal 7 mm. This may related to phase of menstrual cycle. Please correlate exam findings and history. No suspicious adnexal mass. Bladder remarkable. Peritoneum/Retroperi toneum: Trace free fluid dependent pelvis. No free air. No suspicious adenopathy. Bones/Soft Tissues: No suspicious osseous lesion [facility] Ashutosh Solano MD - 10/11/2021 EXAMINATION: CT OF THE [...] No hydronephrosis. Gallbladder is not remarkable. GI/Bowel: Rzwn-ek-aunkbqiq retained stool without bowel obstruction. No pericecal [...] Negative acute inflammatory process or bowel obstruction. [facility] Phone: CT ABDOMEN PELVIS W IV CONTR AST Additional Contrast? NoneOrdered By: Ashutosh Omalley on 10-11-2021 [facility] Phone: Comprehensive Metabolic Pane l w/ Reflex to MGon 10-11-2021 Albumin [Mass/Vol] 4.3 g/dL 3.5 - 5.2 g/dL [facility] Albumin/Globulin [Mass ratio] 1.7 {ratio} [facility] ALP (Bld) [Catalytic activity/Vol] 73 U/L 35 - 104 U/L [facility] ALT [Catalytic activity/Vol] 21 U/L 5 - 33 U/L [facility] Anion gap [Moles/Vol] 7 mmol/L Low 9 - 17 mmol/L [facility] AST [Catalytic activity/Vol] 15 U/L <32 [facility] Bilirubin [Mass/Vol] 0.25 mg/dL Low 0.3 - 1 .2 mg/dL [facility] Calcium [Mass/Vol] 9.1 mg/dL 8.6 - 10. 4 mg/dL [facility] Chloride [Moles/Vol] 105 mmol/L 98 - 10 7 mmol/L [facility] CO2 [Moles/Vol] 26 mmol/L 20 - 31 mmol/L [facility] Creatinine [Mass/Vol] 0.75 mg/dL 0.50 - 0.90 mg/dL [facility] Free PSA/Total PSA [Mass fraction] 6.8 g/dL 6.4 - 8.3 g/dL [facility] GFR >60 >60 mL/min [facility] GFR Non- >60 >60 mL/min [facility] Glucose [Mass/Vol] 116 mg/dL High 70 - 99 mg/dL [facility] Interpretation and review of laboratory results Abnormal [facility] Potassium [Moles/Vol] 3.9 mmol/L 3.7 - 5.3 mmol/L [facility] Sodium [Moles/Vol] 138 mmol/L 135 - 144 mmol/L [facility] Urea nitrogen (BldV) [Mass/Vol] 9 mg/dL 6 - 20 mg/dL [facility] Urea nitrogen/Creatinine (Bld) [Mass ratio] 12 [facility] Laboratory - Chemistry and C hemistry - challengeon 10-11-2021 GFR/1.73 sq M.predicted MDRD (S/P/Bld) [Vol rate/Area] [facility] Comment on above: Average GFR for 20-2 9 years old: 116 mL/min/1.73sq m Chronic Kidney Disease: <60 mL/min/1.73sq m Kidney failure: <15 mL/min/1.73sq m eGFR calculated using average adult body mass. Additional eGFR calculator available at: http://www.[facility]/multiple_crcl_2012.htm Stage 1: Some kidney damage normal GFR Stage 2: Mild kidney damage GFR 60-89 Stage 3: Moderate kidney damage GFR 30-59 Stage 4: Severe kidney damage GFR 15-29 Stage 5: Severe kidney damage GFR <15 ESRD - chronic treatment by dialysis or transplant Lipaseon 10-11-2021 Lipase [Catalytic activity/Vol] 39 U/L 13 - 60 U/L [employer] Microscopic Urinalysison - [employer] Bacteria, UA TRACE Abnormal None [employer] Crystals, UA 2 TO 5 CALCIUM OXALATE Abnormal None /HPF [employer] Epithelial Cells UA 2 TO 5 [employer] RBC, UA 2 TO 5 [facility] WBC, UA 0 TO 2 [employer] No Panel Informationon 10-11 Interpretation and review of laboratory results Abnormal [employer] [facility] , Urineon 2 Beta HCG ( test) Ql (U) Negative NEGATIVE [employer] Comment on above: Specimens with hCG l evels near the threshold of the test (25 mIU/mL) may give a negative or indeterminate result. In such cases, another test should be performed with a new specimen in 48-72 hours. If early is suspected clinically in this setting, correlation with quantitative serum b-hCG level is suggested. [email or web address] has confirmed the use of plasma for this test. This has not been cleared or approved by the U.S. Food and Drug Administration. The FDA has determined that such clearance is not necessary. Urinalysis with Reflex to Cu ltureon 10-11-2021 Bilirubin Urine Negative NEGATIVE [facility] Color, UA Yellow Yellow [employer] Glucose, Ur Negative NEGATIVE [employer] Ketones Ql (U) Negative NEGATIVE [facility] Leukocyte esterase Test strip Ql (U) Negative NEGATIVE [employer] Nitrite, Urine Negative NEGATIVE [facility] pH, UA 6.0 [employer] Protein, UA Negative NEGATIVE [employer] Specific [place], UA >1.030 High [facility] Turbidity UA Clear Clear [employer] Urine Hgb TRACE Abnormal NEGATIVE [facility] Urobilinogen, Urine Normal Normal [facility] PREG QUANT HCGon 10-09-2021 HCG QUANT <1 Normal [facility] Comment on above: Performed By: #### P REGQNT ####[facility] [id number] [place], [place] [address]Dv. Adrianna Caldera HCG RANGE SEE BELOW Normal [facility] Comment on above: Result Comment: 5-50 0-1 WEEK 40-300 1-2 WEEKS 100-1,000 2-3 WEEKS 500-6,000 3-4 WEEKS 5,000-200,000 1-2 MONTHS 10,000-100,000 2-3 MONTHS 3,000-50,000 2ND TRIMESTER 1,000-50,000 3RD TRIMESTER Performed By: #### P REGQNT ####[facility] [id number] [place], [place] [address]Sw. Adrianna Caldera CULTURE, URINE, ROUTINEon CULTURE, URINE, ROUTINE SEE NOTE Abnormal [facility] Comment on above: Result Comment: CULTURE, URINE, ROUTINE Micro Number: [id number] Test Status: Final Specimen Source: Urine Specimen [...] By: #### 3 95 #### [facility] [address], [address] [place] [address] Receptionist Doctor'S Office: Javid Broussard MD XR CHEST PORTABLEon 03-16-20 [address] [facility] ONE XRAY VIEW OF THE CHEST 03/16/2020 3:33 pm COMPARISON: 07/13/2014 HISTORY: ORDERING SYSTEM PROVIDED HISTORY: cough, dyspnea TECHNOLOGIST PROVIDED HISTORY: cough, dyspnea FINDINGS: The lungs are without acute focal process. There is no effusion or pneumothorax. The cardiomediastinal silhouette is without acute process. The osseous structures are without acute process. [facility] Mhpn Incoming Radiant Results From Cr[employer] on original productse/[employer] - 03/16/2020 3:43 PM EDT EXAMINATION: ONE XRAY VIEW OF THE CHEST 03/16/2020 3:33 pm COMPARISON: 07/13/2014 HISTORY: ORDERING SYSTEM PROVIDED HISTORY: cough, dyspnea TECHNOLOGIST PROVIDED HISTORY: cough, dyspnea FINDINGS: The lungs are without acute focal process. There is no effusion or pneumothorax. The cardiomediastinal silhouette is without acute process. The osseous structures are without acute process. IMPRESSION: No acute process. [facility] with Microscopico n 03-03-2020 Amorphous, UA 1+ Abnormal None [place], [place] Bacteria, UA NOT REPORTED None [place] Bilirubin Urine Negative NEGATIVE [place] Casts UA NOT REPORTED /LPF [place] Color, UA YELLO YELLOW [place] Crystals, UA NOT REPORTED None /HPF [place] Epithelial Cells UA None [place] Glucose, Ur Negative NEGATIVE [place] Interpretation and review of laboratory results Abnormal [place] Ketones Ql (U) Negative NEGATIVE [place] Leukocyte esterase Test strip Ql (U) Negative NEGATIVE [place] Mucus, UA NOT REPORTED None [place] Nitrite, Urine Negative NEGATIVE [place] Other Observations UA NOT REPORTED NOT REQ. M [place], [place] pH, UA 6.0 [place] Protein (U) [Mass/Vol] Negative NEGATIVE [place] RBC (U) [#/Vol] None [place] Renal Epithelial, UA NOT REPORTED 0 /HPF Me [place] Specific [place], UA >1.030 [place], [place] Trichomonas, UA NOT REPORTED None [place] Turbidity UA CLOUDY Abnormal CLEAR [place] Urinalysis Comments NOT REPORTED [place] Urine Hgb TRACE Abnormal NEGATIVE [place] Urobilinogen, Urine Normal Normal [place] WBC, UA 0 TO 2 [place] Yeast, UA NOT REPORTED None [place] - [place] NM HEPATOBILIARY SCAN W EJEC TION FRACTIONon 10-12-2019 Cholesterol [Mass/Vol] No convincing scintigraphic evidence of acute or chronic cholecystitis. [place] EXAMINATION: NUCLEAR MEDICINE HEPATOBILIARY SCINTIGRAPHY (HIDA [...] 30-60 mins. Images were obtained in the NIGERIAN projection and regions of interest were drawn [...] range is based on a limited study. [facility] [place] James, ike Incoming Radiant Results From [email or web address] - 10/12/2019 2:56 PM EDT EXAMINATION: NUCLEAR [...] 30-60 mins. Images were obtained in the NIGERIAN projection and regions of interest were drawn [...] scintigraphic evidence of acute or chronic cholecystitis. [facility] [place] HEPATOBILIARY SCAN W PHAR MACOLOGICAL INTERVENTIONon [...] 30-60 mins. Images were obtained in the NIGERIAN projection and regions of interest were drawn [...] Niraj Covarrubias MD 10/12/[address] [facility] H. pylori urease IDon 2019 H. pylori urease ID Specimen Description .TISSUE, ST[place] [id number] EXP 04/05/20 Direct Exam NEGATIVE Report Status FINAL 10/06/[address] [facility] Comment on above: Performed By: #### H JOELLE #### [facility] [address] [place] [address] Physician Locums Urgent Care: Varun Vicente MD [facility] [employer] [address] [place] [address] Physician Locums Urgent Care: Omar Segundo MD OPERATIVE REPORTon 0 OPERATIVE REPORT [address] [id number] OPERATIVE REPORT PATIENT NAME: LULÚ GAITAN : 1995 MED REC NO: [id number] ROOM: ACCOUNT NO: [id number] ADMIT DATE: 10/05/2019 PROVIDER: Toño Blanc Jr [...] satisfactory condition. TOÑO BLANC JR [id number] Doc#: [id number] CC: Lisseth Blanc Jr Normal [facility] POCT urine pregnancyon 10-04 Beta HCG ( test) Ql (U) Negative NEGATIVE [facility] [place] Comment on above: Specimens with hCG l evels near the threshold of the test (25 mIU/mL) may give a negative or indeterminate result. In such cases, another test should be performed with a new specimen in 48-72 hours. If early is suspected clinically in this setting, correlation with quantitative serum b-hCG level is suggested. [id number] 10-05-2019 SARS-CoV-2 Not Detected Normal Not Detected [facility] Comment on above: Result Comment: (NOT E) The Ver[employer] RealTime SARS-CoV-2 assay is a real-time (rt) reverse transcriptase (RT) polymerase chain reaction (PCR) test intended for the ImmuVen system. The SARS-CoV-2 primer and probe sets are designed to detect RNA from SARS-CoV-2 in nasopharyngeal (DURABILITY ENGINEER) and oropharyngeal (OP) swabs from patients with [...] The above 1 analytes were performed by [address] [address] Performed By: #### C OVID #### [facility] [address] [place] [address] Physician Locums Urgent Care: Samson Martinez DO [facility] [address] [place] [address] Physician Locums Urgent Care: Omar Segundo MD [facility] [address] [place] [address] Physician Locums Urgent Care: Bill Jolly MD Surgical Pathologyon 020 Surgical Pathology (NOTE) -- Diagnosis -- 1. GASTRIC ANTRUM BIOPSIES: MILD CHRONIC INACTIVE GASTRITIS. 2. DISTAL ESOPHAGUS BIOPSIES: NORMAL SQUAMOUS MUCOSA. GASTRIC MUCOSA WITH MILD CHRONIC INACTIVE INFLAMMATION; NEGATIVE FOR INTESTINAL/GOBLET CELL METAPLASIA AND GLANDULAR DYSPLASIA. Eric J. Allen, M Electronically Signed Out ajb10/08/2019 Clinical Information Pre-op [...] SURGICAL PATHOLOGY CONSULTATION Patient Name: LULÚ GAITAN [facility] Rec: [id number] Path Number: [id number] [facility] ANATOMIC PATHOLOGY [address] [place] [id number] [facility] Comment on above: Performed By: #### P PPVS #### [address] [id number] Physician Locums Urgent Care: Omar Segundo MD [id number] 10-03-2019 SARS-CoV-2 [facility] Comment on above: Performed By: #### C OVID #### [facility] [address] [place] [address] Physician Locums Urgent Care: Samson Martinez DO [facility] [address] [place], [place] [id number] Physician Locums Urgent Care: Omar Segundo MD [facility] [address] [place], [place] [id number] Physician Locums Urgent Care: Bill Jolly MD SARS-CoV-2 Source .NASOPHARYNGEAL SWAB [facility] Comment on above: Performed By: #### C OVID #### [facility] [address] [place] [address] Physician Locums Urgent Care: Samson Martinez DO [facility] [address] [place] [address] Physician Locums Urgent Care: Omar Segundo MD [facility] [address] [place] [address] Physician Locums Urgent Care: Bill Jolly MD SARS-CoV-2,Rapid Normal [facility] Comment on above: Performed By: #### C OVID #### [facility] [address] [facility] [place] [address] Physician Locums Urgent Care: Samson Martinez DO [address] [place] [address] Physician Locums Urgent Care: Omar Segundo MD [facility] [address] [place] [address] Physician Locums Urgent Care: Bill Jolly MD XR ABDOMEN (KUB) (SINGLE AP VIEW)on 02-08-2019 Nonspecific nonobstructive bowel gas pattern. No definite calcified urinary tract stones are seen. [facility] ONE SUPINE XRAY VIEW(S) OF [...] nonobstructive bowel gas pattern. No unusual calcifications. [facility] [place] James, Mhpn Incoming Radiant Results From [email or web address] - 02/08/2019 4:29 PM EDT EXAMINATION: ONE [...] definite calcified urinary tract stones are seen. [place] Otheron 02-06-2019 Interpretation and review of laboratory results Abnormal [place] Urinalysis with Microscopico n 02-06-2019 Amorphous, UA NOT REPORTED None [place] Bacteria, UA TRACE Abnormal None [place] Bilirubin Urine Negative NEGATIVE [place] Casts UA NOT REPORTED /LPF [place] Color, UA YELLOW YELLOW [place] Crystals UA NOT REPORTED None /HPF [place] Epithelial Cells UA 2 TO 5 [place] Glucose, Ur Negative NEGATIVE [place] Ketones Ql (U) Negative NEGATIVE [place] Leukocyte esterase Test strip Ql (U) Negative NEGATIVE [place] Mucus, UA 1+ Abnormal None [place] Nitrite, Urine Negative NEGATIVE [place] Other Observations UA NOT REPORTED NOT REQ. [place] pH, UA 7.0 [place] Protein (U) [Mass/Vol] Negative NEGATIVE [place] RBC (U) [#/Vol] 0 TO 2 [place] Renal Epithelial, Urine NOT REPORTED 0 /HPF [place] Specific [place], UA 1.020 [place], [place] Trichomonas, UA NOT REPORTED None [place] Turbidity UA CLEAR CLEAR [place] Urinalysis Comments NOT REPORTED [place] Urine Hgb TRACE Abnormal NEGATIVE [place] Urobilinogen, Urine Normal Normal [place], [place] WBC, UA 0 TO 2 [place] Yeast, UA NOT REPORTED None [place] - [place] Wet prep, genitalon 02-07-20 19 Direct Exam NO TRICHOMONAS SEEN [place] Direct Exam YEAST [place] Direct Exam CLUE CELLS SEEN Abnormal [place] Special Requests NOT REPORTED [place] Specimen Description .VAGINA [place] Social History Date Type Detail Facility Start: 04-26-2022 End: 07-07-2023 History of Social function [facility] Start: 04-26-2022 Education 16 [facility] Start: 11-10-2021 Tobacco smoking status NHIS Ex-smoker [facility] Start: 10-01-2021 End: 06-30-2022 Exposure to SARS-CoV-2 (event) Not sure [place] Start: 04-03-2021 History SDOH Financial 5 [facility] [employer] Work Phone: Start: 04-03-2021 History SDOH Food Worry 1 [facility] [employer] Work Phone: Start: 04-03-2021 History 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 2 [facility] [employer] Phone: Start: 03-03-2020 End: 11-10-2021 Tobacco use and exposure Never used [place] Start: 03-03-2020 End: 07-07-2023 Alcohol intake Current drinker of alcohol (finding) [place] Start: 03-03-2020 Alcohol Comment occasional [place] Start: 07-31-2019 End: 10-05-2019 Alcohol intake Current non-drinker of alcohol (finding) [place] Start: 02-06-2019 End: 05-10-2023 Tobacco smoking status NHIS Never smoker [place] Start: 02-06-2019 End: 04-26-2022 Alcohol intake No [place] Start: 06-07-2018 Alcohol Comment occasionally [facility] Start: 1995 Sex Assigned At Not on file [place] Start: 1995 Sex Assigned At Female [facility] Start: *Tobacco [facility] Exposure to SARS-CoV -2 (event) Unable to assess [facility] [place] Tobacco smoking status Never [facility] Tobacco smoking stat us ORIS Tobacco smoking consumption unknown [facility] History of tobacco use Current smoker [facility] History of tobacco use Tobacco U se Types Packs/Day Years Used Date Smoking Tobacco: Former Vaping/E-cigarettes Smokeless Tobacco: Never [facility] Do you belong to any clubs or organizations such as pentecostal groups, unions, [employer] or athletic groups, or school groups? No [facility] Are you now , , , , never or living with a partner? Living with partner [facility] How often to you hav e a drink containing alcohol? Never [facility] How hard is it for y ou to pay for the very basics like food, housing, medical care, and heating Not very hard [facility] Do you feel stress - tense, restless, nervous, or anxious, or unable to sleep at night because your mind is troubled all the time - these days [OSQ] Rather much [facility] [facility] Vital Signs Date Time Vital Sign Value Performing Clinician Facility 07-07-2023 10:35-0500 Body height 165.1 cm Matthew Lemus DO Work Phone: [facility] 07-07-2023 10:35-0500 Body mass index (BMI) [Ratio] 25.61 kg/m2 Matthew [facility] DO [facility] 07-07-2023 10:35-0500 Body temperature 97.7 [degF] Matthew [facility] DO [facility] 07-07-2023 10:35-0500 Body weight 69.81 kg Matthew Lemus DO [facility] 07-07-2023 10:35-0500 Diastolic blood pressure 70 mm[Hg] Matthew Lemus DO Work Phone: [facility] 07-07-2023 10:35-0500 Heart rate 100 /min Matthew Yuhas DO Work Phone: [facility] 07-07-2023 10:35-0500 SaO2% (BldA) [Mass fraction] 96 % Matthew Yuhas DO Work Phone: [facility] 07-07-2023 10:35-0500 Systolic blood pressure 100 mm[Hg] Matthew Yuhas DO Work Phone: [facility] 05-19-2023 15:36-0500 Diastolic blood pressure 59 mm[Hg] DO Matthew Yuhas Work Phone: [facility] 05-19-2023 15:36-0500 Heart rate 95 /min DO Matthew Marlenyhas Work Phone: [facility] 05-19-2023 15:36-0500 Respiratory rate 16 /min DO Matthew Marlenyhas Work Phone: [facility] 05-19-2023 15:36-0500 SaO2% (BldA) [Mass fraction] 99 % DO Matthew Yuhas Work Phone: [facility] 05-19-2023 15:36-0500 Systolic blood pressure 109 mm[Hg] DO Matthew Marlenyhas Work Phone: [facility] 05-19-2023 12:39-0500 Body height 165.1 cm DO Matthew Yuhas Work Phone: [facility] 05-19-2023 12:39-0500 Body weight 70.76 kg DO Matthew Yuhas Work Phone: [facility] 05-10-2023 11:11-0500 Diastolic blood pressure 78 mm[Hg] Rishi MARSHALL [facility] 05-10-2023 11:11-0500 Heart rate 72 /min Rishi MARSHALL [facility] 05-10-2023 11:11-0500 Systolic blood pressure 117 mm[Hg] Rishi MARSHALL [facility] 04-27-2023 13:30-0500 Body height 166.37 cm Imad Asaad Other [employer] Other 04-27-2023 13:30-0500 Body mass index (BMI) [Ratio] 25.71 kg/m2 Imad Asaad Other [employer] Other 04-27-2023 13:30-0500 Body weight 71.17 kg Imad Asaad Other [employer] Other 02-11-2023 18:20-0400 Body height 166.37 cm Sarah Anderson Other [employer] Other 02-11-2023 18:20-0400 Body mass index (BMI) [Ratio] 27.69 kg/m2 Sarah Anderson Other [employer] Other 02-11-2023 18:20-0400 Body temperature 98.1 [degF] Sarah Anderson Other [employer] Other 02-11-2023 18:20-0400 Body weight 76.66 kg Sarah Anderson Other [employer] Other 02-11-2023 18:20-0400 Diastolic blood pressure 78 mm[Hg] Sarah Anderson Other [employer] Other 02-11-2023 18:20-0400 Respiratory rate 18 /min Saarh Anderson Other [employer] Other 02-11-2023 18:20-0400 SaO2% (BldA) [Mass fraction] 99 % Sarah Anderson Other [employer] Other 02-11-2023 18:20-0400 Systolic blood pressure 116 mm[Hg] Sarah Anderson Other [employer] Other 02-06-2023 07:30-0400 Body temperature 98.1 [degF] DO Matthew Miltons Work Phone: [facility] 02-06-2023 07:30-0400 Diastolic blood pressure 60 mm[Hg] DO Matthew Marlenyhas Work Phone: [facility] 02-06-2023 07:30-0400 Heart rate 83 /min DO Matthew Santiagohas Work Phone: [facility] 02-06-2023 07:30-0400 Respiratory rate 18 /min DO Matthew Miltons Work Phone: [facility] 02-06-2023 07:30-0400 SaO2% (BldA) [Mass fraction] 97 % DO Matthew Santiagohas Work Phone: [facility] 02-06-2023 07:30-0400 Systolic blood pressure 102 mm[Hg] DO Matthew Marlenyhas Work Phone: [facility] 02-03-2023 14:17-0400 Body height 165.1 cm DO Matthew Santiagohas Work Phone: [facility] 02-02-2023 23:53-0400 Body weight 74.15 kg DO Matthew Marlenyhas Work Phone: [facility] 06-30-2022 23:12-0500 Diastolic blood pressure 56 mm[Hg] Courtney Hernandez MD Work Phone: [facility] 06-30-2022 23:12-0500 Heart rate 88 /min Courtney Hernandez MD Work Phone: [employer] 06-30-2022 23:12-0500 Respiratory rate 16 /min Courtney Hernandez MD Work Phone: [employer] 06-30-2022 23:12-0500 Systolic blood pressure 100 mm[Hg] Courtney Hernandez MD Work Phone: [employer] 06-30-2022 22:21-0500 Body height 165.1 cm Courtney Hernandez MD Work Phone: [employer] 06-30-2022 21:13-0500 SaO2% (BldA) [Mass fraction] 98 % Courtney Hernandez MD Work Phone: [employer] 06-30-2022 18:31-0500 Body mass index (BMI) [Ratio] 28.96 kg/m2 Courtney Hernandez MD Work Phone: [employer] 06-30-2022 18:31-0500 Body weight 78.93 kg Courtney Hernandez MD Work Phone: [employer] 06-30-2022 18:27-0500 Body temperature 98.4 [degF] Courtney Hernandez MD Work Phone: [employer] 06-17-2022 17:10-0500 Diastolic blood pressure 65 mm[Hg] Bridgette Guillaumenchard [employer] 06-17-2022 17:10-0500 Systolic blood pressure 114 mm[Hg] Bridgette Dejesushard [employer] 06-17-2022 17:10-0500 Systolic blood pressure 110 mm[Hg] [facility] 06-17-2022 17:00-0500 Body height 166.37 cm Bridgette Ortega [facility] [employer] 06-17-2022 17:00-0500 Body mass index (BMI) [Ratio] 28.43 kg/m2 Bridgette DejesusZiipa 06-17-2022 17:00-0500 Body surface area Derived from formula 1.91 m2 Bridgette DejesusZiipa 06-17-2022 17:00-0500 Body weight 78.7 kg Bridgette DejesusBevvy 06-17-2022 17:00-0500 Body weight 0.1 {percentile} Bridgette DejesusZiipa 06-17-2022 17:00-0500 Diastolic blood pressure 70 mm[Hg] Bridgette DejesusZiipa 06-17-2022 17:00-0500 Heart rate 72 /min Bridgette DejesusBevvy 06-17-2022 17:00-0500 Systolic blood pressure 118 mm[Hg] Bridgette DejesusZiipa 06-15-2022 17:35-0500 Body temperature 98.1 [degF] Maricel [employer] 06-15-2022 17:35-0500 Body weight 77.57 kg Maricel [email or web address] 06-15-2022 17:35-0500 Diastolic blood pressure 62 mm[Hg] Maricel [employer] 06-15-2022 17:35-0500 Heart rate 80 /min [employer] 06-15-2022 17:35-0500 Respiratory rate 16 /min Maricel [employer] 06-15-2022 17:35-0500 Systolic blood pressure 110 mm[Hg] Maricel [employer] 05-17-2022 11:45-0500 SaO2% (BldA) [Mass fraction] 98 % Maricel [email or web address] 05-17-2022 10:59-0500 Body height 166.37 cm Maricel [email or web address] 05-17-2022 10:59-0500 Body mass index (BMI) [Ratio] 28.19 kg/m2 Maricel [employer] 05-17-2022 10:59-0500 Body surface area Derived from formula 1.9 m2 Maricel [employer] 05-17-2022 10:59-0500 Body temperature 98.5 [degF] Maricel [employer] 05-17-2022 10:59-0500 Body weight 78.02 kg Maricel [employer] 05-17-2022 10:59-0500 Body weight 0.1 {percentile} Maricel [employer] 05-17-2022 10:59-0500 Diastolic blood pressure 60 mm[Hg] Maricel [employer] 05-17-2022 10:59-0500 Heart rate 90 /min Maricel [employer] 05-17-2022 10:59-0500 Respiratory rate 18 /min Maricel [employer] 05-17-2022 10:59-0500 Systolic blood pressure 112 mm[Hg] Maricel [employer] 02-10-2022 20:45-0400 Diastolic blood pressure 64 mm[Hg] DO Matthew Lemus Work Phone: [facility] 02-10-2022 20:45-0400 Heart rate 81 /min DO Matthew Lemus Work Phone: [facility] 02-10-2022 20:45-0400 Respiratory rate 16 /min DO Matthew Lemus Work Phone: [facility] 02-10-2022 20:45-0400 SaO2% (BldA) [Mass fraction] 99 % DO Matthew Lemus Work Phone: [facility] 02-10-2022 20:45-0400 Systolic blood pressure 100 mm[Hg] DO Matthew Lemus Work Phone: [facility] 02-10-2022 14:17-0400 Body height 165.1 cm DO Matthew Lemus Work Phone: [facility] 02-10-2022 14:17-0400 Body weight 81.64 kg DO Matthew Lemus Work Phone: [facility] 02-09-2022 10:01-0400 Body height 166.37 cm Kaleigh [employer] 02-09-2022 10:01-0400 Diastolic blood pressure 64 mm[Hg] Kaleigh Guevara [employer] 02-09-2022 10:01-0400 Heart rate 120 /min Kaleigh [employer] 02-09-2022 10:01-0400 Systolic blood pressure 118 mm[Hg] Kaleigh Guevara [employer] 01-29-2022 11:30-0400 Body height 166.37 cm Bridgette Lewis [employer] 01-29-2022 11:30-0400 Diastolic blood pressure 62 mm[Hg] Bridgette Lewis [employer] 01-29-2022 11:30-0400 Heart rate 100 /min Bridgette DejesusBevvy 01-29-2022 11:30-0400 Systolic blood pressure 114 mm[Hg] Bridgette Ortega [employer] 01-25-2022 10:30-0400 Body height 166.37 cm Tae Buehrer Other [employer] Other 01-25-2022 10:30-0400 Body mass index (BMI) [Ratio] 29.49 kg/m2 Tae Buehrer Other [employer] Other 01-25-2022 10:30-0400 Body temperature 97.8 [degF] Tae Buehrer Other [employer] Other 01-25-2022 10:30-0400 Body weight 81.65 kg Tae Buehrer Other [employer] Other 01-25-2022 10:30-0400 Diastolic blood pressure 64 mm[Hg] Tae Buehrer Other [employer] Other 01-25-2022 10:30-0400 SaO2% (BldA) [Mass fraction] 99 % Tae Leeehrer Other [employer] Other 01-25-2022 10:30-0400 Systolic blood pressure 110 mm[Hg] Tae Buehrer Other [employer] Other 01-19-2022 10:59-0400 Body height 166.37 cm Bridgette Ortega [facility] [employer] 01-19-2022 10:59-0400 Body mass index (BMI) [Ratio] 29.5 kg/m2 Bridgette Ortega [employer] 01-19-2022 10:59-0400 Body surface area Derived from formula 1.94 m2 Bridgette DejesusZiipa 01-19-2022 10:59-0400 Body weight 81.65 kg Bridgette Ortega [employer] 01-19-2022 10:59-0400 Diastolic blood pressure 72 mm[Hg] Bridgette DejesusZiipa 01-19-2022 10:59-0400 Heart rate 112 /min Bridgette Ortega [employer] 01-19-2022 10:59-0400 Systolic blood pressure 114 mm[Hg] Bridgette DejesusZiipa 10-11-2021 18:26-0400 Diastolic blood pressure 77 mm[Hg] Matthew Lemus Work Phone: [employer] 10-11-2021 18:26-0400 Systolic blood pressure 130 mm[Hg] Matthew Lemus Work Phone: [employer] 10-11-2021 14:00-0400 Body mass index (BMI) [Ratio] 28.46 kg/m2 Matthew Lemus Work Phone: [employer] 10-11-2021 14:00-0400 Body temperature 97.81 [degF] Matthew Lemus Work Phone: [employer] 10-11-2021 14:00-0400 Body weight 77.56 kg Matthew Lemus Work Phone: [employer] 10-11-2021 14:00-0400 Heart rate 95 /min Matthew Lemus Work Phone: [employer] 10-11-2021 14:00-0400 Respiratory rate 16 /min Matthew Lemus Work Phone: [employer] 10-11-2021 14:00-0400 SaO2% (BldA) [Mass fraction] 98 % Matthew Lemsu Work Phone: [facility] [employer] 09-29-2021 13:04-0400 Blood Pressure Location Rishi MARSHALL [facility] [place] 09-29-2021 13:04-0400 Diastolic blood pressure 83 mm[Hg] [facility] 09-29-2021 13:04-0400 Heart rate 100 /min [facility]ishi [facility]SHALL [facility] 09-29-2021 13:04-0400 Systolic blood pressure 124 mm[Hg] Rishi MARSHALL [facility] 09-04-2021 09:22-0400 Blood Pressure Location Rishi MARSHALL Executive [facility] [place] 09-04-2021 09:22-0400 Diastolic blood pressure 67 mm[Hg] Rishi MARSHALL [facility] 09-04-2021 09:22-0400 Heart rate 78 /min Rishi MARSHALL [facility] [place] 09-04-2021 09:22-0400 Respiratory rate 16 /min Rishi MARSHALL [facility] 09-04-2021 09:22-0400 Systolic blood pressure 97 mm[Hg] Rishi MARSHALL [facility] [place] 03-16-2020 15:12-0400 BMI (Body Mass Index) 25.96 kg/m2 [facility] Paris[facility], [place] 03-16-2020 15:12-0400 Body Temperature 99 [degF] [facility], [place] 03-16-2020 15:12-0400 Body weight 70.76 kg Catracho Parisi [facility] , [place] 03-16-2020 15:12-0400 BP Diastolic 69 mm[Hg] [facility] , [place] 03-16-2020 15:12-0400 BP Systolic 125 mm[Hg] [facility] , [place] 03-16-2020 15:12-0400 Pulse (Heart Rate) 77 /min [place] 03-16-2020 15:12-0400 Pulse Oximetry 99 % Catracho Parisi [facility] , [place] 03-16-2020 15:12-0400 Respiratory Rate 18 /min Catracho Parisi [facility], [place] 10-05-2019 13:30-0400 Body Temperature 98.1 [degF] [facility], [place] 10-05-2019 13:30-0400 BP Diastolic 72 mm[Hg] [facility] , [place] 10-05-2019 13:30-0400 BP Systolic 110 mm[Hg] [place], [place] 10-05-2019 13:30-0400 Pulse (Heart Rate) 76 /min [place], [place] 10-05-2019 13:30-0400 Pulse Oximetry 100 % [place] 10-05-2019 13:30-0400 Respiratory Rate 18 /min [facility], [place] 10-05-2019 10:26-0400 BMI (Body Mass Index) 24.37 kg/m2 [place], [place] 10-05-2019 10:26-0400 Body weight 68.49 kg [place], [place] 10-05-2019 10:26-0400 Height 167.6 cm [place], [place] Functional Status Date Assessment Result Facility 05-10-2023 Functional Status N/A [facility] [place] 02-06-2023 Functional status Patient at Baseline [facility] Work Phone: Mental Status Date Assessment Result Facility 02-06-2023 Cognitive function Cognitive Sta tus Patient at Baseline [facility] Work Phone: Clinical Notes 09-04-2021 to 07-07-2023 Matthew Lemus, DO - 07/07/2023 10:30 AM EST Note Date & Type Note Facility 07-07-2023 History of Present illness Narrative IM PROGRESS NOTE Patient - Lulú Gaitan Age - 28 y.o. - 1995 ASSESSMENT & PLAN 1. Bipolar 1 disorder ([facility] -overall stable -undergoing medical regimen change. Will [...] disorder and anxiety and was admitted to [facility] for evaluation and adjustment of her medications. [...] have CT scan and upper GI at [facility]. Both were termed normal except for changes related to her recent kidney stone and bladder manipulation. A review of systems was negative except for the following: General: sleep disturbance Psychiatric: anxiety, mood swings, and now seeing a new mental health provider (Nelly Pederson) out of [place]. Has recently had wholesale changes to her [...] Testing No results found. Matthew Lemus DO., [facility] Office: [phone] documented in this encounter [email or web address] 05-19-2023 History and physical note Note Date/Time May 19, 2023 1:38pm [facility] [address] [place] [address] Gastroenterology H&P Signed Patient: Lulú Gaitan MR#: [id number] : 1995 Acct:[id number] Age/Sex: 28 / F Adm Date: 3 Loc: Room: Type: [facility] Attending Dr: Fany Ceballos MD Copies [...] By: <Electronically signed by Fany Ceballos MD> 05/19/238 [facility] Work Phone: 1(141) 492-116312-21-2023 [facility]* Encounter Date Diagnosis Assessment Notes Treatment Notes Treatment Clinical Notes Apr, Abnormal abdominal C T scan (ICD-10 - R93.5) Apr, Pyelonephritis of left kidney (ICD-10 - N12) fotobabble Other 12-12-2023 Hospital Discharge instructions Patient Education [...] Follow these instructions at home: Medicines Take hmti-bog-enozyew and prescription medicines only as told by [...] or the blood stops without treatment. Take bkap-dfs-xgipple and prescription medicines only as told by your health care provider. Drink enough fluid to keep your urine pale yellow. This information is not intended to replace advice given to you by your health care provider. Make sure you discuss any questions you have with your health care provider. Document Revised: 01/14/2021 Document Reviewed: 01/14/2021 E-Box - Blogo.it Patient Education 2022 ValetAnywhere. Follow Up Care 05/06/2023 07:59:50 With:ROLANDO DEVLIN, Rishi Ghosh, URL Address: [facility] [address], [place] [address]- When:Within 4 Month(s) Comments:w/ELYSE [facility] [place] 11-29-2023 Evaluation note* Encounter Date Diagnosis Assessment Notes Treatment Notes Treatment Clinical Notes Mar, Irritable bowel syndrome with constipation (ICD-10 - K58.1) Mar, Delayed gastric emptying (ICD-10 - K30) Mar, Vomiting (ICD-10 - R11.10) fotobabble Other 09-15-2023 Evaluation note* Encounter Date Diagnosis [...] no improvement in 2 to 3 days fotobabble Other 09-10-2023 Hospital Discharge instructions Additional Instructions Important Contact Information You can call [facility] at [phone] any time day or night if you have emergent questions concerning your inpatient stay and to obtain information for obtaining testing results. If at any time you are feeling an increase in your psychiatric symptoms, call your physician or behavioral healthcare provider. If any time you have thoughts of harming yourself or others contact one of the following: Call 8 (available 20/12) Crisis Text Line (available 20/12) text 4HOPE to [phone] [facility] Line (available 8 a.m. Midnight) call [phone] ([phone]) [facility] Work Phone: 1(199) 768-533209-09-2023 Progress note Author Karri Kamara [facility] February 05, 2023 12:00pm Note Date/Time February 05, 2023 12:00pm [facility] [address] [place] [address] Psychiatry Progress Note Signed Patient: Lulú Gaitan MR#: [id number] : 1995 Acct:[id number] Age/Sex: 27 / F Adm Date: 3 Loc: Room: [address] [place] [address] Type : ADM IN Attending Dr: Karri [...] signed by Karri Kamara MD> 02/05/23 1200 [facility] Work Phone: 1(827) 904-825209-08-2023 Progress note Author Karri Kamara [facility] February 04, 2023 1:43pm Note Date/Time February 04, 2023 1:44pm [facility] [address] [place] [address] Psychiatry Progress Note Signed Patient: Lulú Gaitan MR#: [id number] : 1995 Acct:[id number] Age/Sex: 27 / F Adm Date: 3 Loc: Room: [address] [place] [address] Type : ADM IN Attending Dr: Karri [...] signed by Karri Kamara MD> 02/04/23 1343 [facility] Work Phone: 1(782) 718-413209-07-2023 Miscellaneous Notes* Telephone Encounter - Viviana David [...] list full name of hospital or facility)? [facility] If the patient had a gastric [...] G/J Tube?No Preferred phone number for contact: [phone] [facility] History and physical note Author Karri Kamara [facility] February 03, 2023 11:58am Note Date/Time February 03, 2023 11:58am [facility] [address] [place] [address] Psychiatry H&P Signed Patient: Lulú Gaitan MR#: [id number] : 1995 Acct:[id number] Age/Sex: 27 / F Adm Date: 3 Loc: Room: [address] [place] [address] Type: ADM IN Attending Dr: Karri Kamara [...] States she recently saw her psychiatrist at [facility] and was restarted on Latuda. 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 Nurse pal[pates pt's abdomen when pt feeling [...] at this time. [facility] Work Phone: 1(152) 982-435302-02-2023 Hospital Discharge instructions* Discharge Instructions* Jenna Elliott RN - 07/01/2022 12:27 AM EST OUTPATIENT DISCHARGE Dr. Miguel Aguilera [facility] Dr. Katelynn Leslie [facility] [address] [facility] [address] [place] [facility] [address] [place] 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 [facility] Phone: 1(214) 108-451809-14-2022 History and physical note Author Tae Natarajan [facility] February 10, 2022 5:06pm Note Date/Time February 10, 2022 5:06pm [facility] [address] [place] [address] Vascular Surgery H&P Signed Patient: Lulú Gaitan MR#: [id number] : 1995 Acct:[id number] Age/Sex: 26 / F Adm Date: 09/14/2 2 Loc: IR Room: Type: [facility] Attending Dr: Tae Natarajan MD Copies [...] mg PO DAILY 02/10/22 [History Confirmed 02/10/22] gzkmflskdl-evmcnjmsblbri-zqrpopth 50 mg-300 mg-40 mg capsule (Fioricet) 1 [...] signed by MD Tae Natarajan> 02/10/22 1706 [facility] Work Phone: 1(371) 868-469808-29-2022 Evaluation note* Encounter Date Diagnosis Assessment Notes [...] ahead with arteriogram and venogram as requested. fotobabble Other 05-15-2022 Hospital Discharge instructions* Instructions* Christine Vazquez PA-C - 10/11/2021 Take ibuprofen ulxb-llm-srgeufj 600 mg 3 times daily as needed for pain. Follow- up with your primary care provider and discuss additional testing if symptoms not improved. Return to the emergency room for any worsening symptoms. * Attachments The following attachments cannot be sent through Care Everywhere. * Pelvic Pain (Qatari) documented in this [facility] Work Phone: 1(119) 754-164305-03-2022 Hospital Discharge instructions Patient Education 09/29/2021 13:37:25 [...] Follow these instructions at home: Medicines Take qigs-wov-clzdouw and prescription medicines only as told by [...] or the blood stops without treatment. Take pqld-yhp-fehmjca and prescription medicines only as told by your health care provider. Drink enough fluid to keep your urine clear or pale yellow. This information is not intended to replace advice given to you by your health care provider. Make sure you discuss any questions you have with your health care provider. Document Released: 05/16/2006 Document Revised: 10/10/2019 Document Reviewed: 06/18/2017 E-Box - Blogo.it Patient Education 2019 ValetAnywhere. Follow Up Care 09/22/2021 14:13:42 With:ROLANDO DEVLIN, Rishi Ghosh, URL Address: [facility] [address] , [place] [address]- Business (1) When: Unknown [facility] 04-08-2022 Hospital Discharge instructions Patient Education 09/04/2021 [...] including vitamins, herbs, eye drops, creams, and jgbh-mzg-eehpbcw medicines. Any problems you or family members [...] provider tells you to take them. ?Taking xztw-dfz-mesosoy medicines, vitamins, herbs, and supplements. Follow instructions [...] Follow these instructions at home: Medicines Take lsyc-yzt-qmsghap and prescription medicines only as told by [...] 05/13/2001 Document Revised: 05/08/2019 Document Reviewed: 05/08/2019 E-Box - [email or web address] Patient Education 2020 ValetAnywhere. Follow Up Care 08/07/2021 15:47:45 With:ROLANDO DEVLIN, Rishi Ghosh, URL Address: [address] [place] [address]- When: Unknown Comments:will schedule Cysto [facility] discharge summary Author Karri Kamara [facility] February 06, 2023 11:04am Note Date/Time February 06, 2023 11:04am [facility] [address] [place] [address] Discharge Summary Signed Patient: Lulú Gaitan MR#: [id number] : 1995 Acct:[id number] Age/Sex: 27 / F Adm Date: 3 Loc: Room: [address] [place] [address]: Karri Kamara MD Copies to: [...] States she recently saw her psychiatrist at [facility] and was restarted on Latuda. 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 Midnight) call [phone]) Stand Alone Forms: Work/School Release Form Prescriptions: [...] Follow Up: [facility] [Other] (fax:[phone]) [facility] [Outside] Matthew Lemus DO [Primary Care Provider] - (Please contact for any medical needs or concerns) Documented By: Karri Kamara MD 02/06/23 1103 Signed By: <Electronically signed by Karri Kamara MD> 02/06/23 110 [facility] Work Phone: Evaluation + Plan note No data available for this section [facility] evaluation + Plan note Future Appointments Appointment Date:02/05/2022 09:45:00 AM Scheduled Provider:Rishi MARSHALL MD Location:[facility] Appointment Type:URO Office Visit [facility] Evaluation + Plan note Future Appointments Appointment Date:09/27/2023 10:15:00 AM Scheduled Provider:Rishi MARSHALL MD Location:[facility] [place] Appointment Type:URO Office Visit [facility] [place] evaluation note* Diagnosis Lower abdominal pain- Primary Abdominal pain, other specified site documented in this encounter [employer] Work Phone: evaleuodsn note* Diagnosis Onset Date Resolution Status Hematuria acute [facility] [employer] Work Phone: Evaluation note* Diagnosis Hyperemesis- Primary Persistent vomiting Pelvic cramping Unspecified symptom associated with female genital organs documented in this encounter [employer] Work Phone: evaluation note* Diagnosis Onset Date Resolution Status Bipolar 1 disorder acute Depression acute Major depressive disorder, recurrent acute Suicidal ideation acute [facility] [employer] Work Phone: evaluation noteNo assessment information available [facility] [employer] Work Phone: evaluation note* Diagnosis Bipolar 1 disorder ([facility] Primary Oropharyngeal dysphagia Dysphagia, oropharyngeal phase Generalized anxiety disorder with panic attacks documented [facility] this encounter [facility] N[facility]ative - Reported* Type Description Date Medical History migraine headache Medical History endometriosis Medical History PCOS Medical History borderline personality disorder Medical History bipolar Medical History anxiety Medical History chronic depression Surgical History laparoscopy x3 female Surgical History umbilical hernia repair Hospitalization History 1 count includes the [facility] 2020 Hospitalization History as a child for stomach p ain fotobabble Other Hisydpv general Narrative - Reported* Type Description Date Medical History migraine headache Medical History endometriosis Medical History PCOS Medical History borderline personality disorder Medical History bipolar Medical History anxiety Medical History chronic depression Surgical History laparoscopy x3 female Surgical History umbilical hernia repair Hospitalization History 1 [facility] 2020 Hospitalization History as a child for stomach p ain Hospitalization History LATUDA REACTION 1 [facility] 02/02/2023 fotobabble Other Hospital Discharge instructions Additional Instructions Hold Metformin for 2 days. No heavy lifting of anything over 5 pounds. No pushing or pulling. No vigorous activity. Remove dressing in 24 hours.[facility] Work Phone: Hospital Discharge instructions Additional Instructions [...] NOT operate machinery such as power tools, [employer] mowers, snow blowers, sewing machines, etc. for [...] problems. -Follow up with PCP. -Office number [phone]. [facility] Work Phone: Hospital Discharge instructions No data available for this section [facility] InstructionsNot on filedocumented in this encounter [facility] No data available for this section [facility] [place] Assessments Diagnosis Gross hematuria Urgency of urination Diagnosis Gross hematuria Urgency of urination Diagnosis Gross hematuria Diagnosis Acute frontal sinusitis, recurrence not specified Diagnosis Viral URI with cough Acute upper respiratory infections of unspecified site Diagnosis Intractable nausea and vomiting Persistent vomiting Diagnosis Dysuria Gross hematuria Advance Directives No Advanced Directives Records FoundDocuments on File Type Date Recorded Patient Slot Tag Inserter Expl anation Advance Directives and Living Will Power of Fine Patcher Documents on File Type Date Recorded Patient Slot Tag Inserter Expl anation Advance Directives and Living Will Power of Fine Patcher Documents on File Type Date Recorded Patient Slot Tag Inserter Expl anation ACP-Advance Directive ACP-Power of Fine Patcher Advance Directive Response Recorded Date/ Time Advance [...] Where can you learn more? Go to [email or web address] and sign in to your HouseTrip account. Enter J454 in the Search Health Information box to learn more about Upper GI Endoscopy: What to Expect at Home. . 8080-6728 Ygle. Care instructions adapted under license by [employer]. This care instruction is for use with your licensed healthcare professional. If you have questions about a medical condition or this instruction, always ask your healthcare professional. Ygle disclaims any warranty or liability for your use of this information. Content Version: 9.9.889562; Last Revised: July 19, 2012 Upper GI [...] Where can you learn more? Go to [email or web address] and sign in to your HouseTrip account. Enter J454 in the GetSet Information box to learn more about Upper GI Endoscopy: What to Expect at Home. . 9257-6880 Ygle. Care instructions adapted under license by [employer]. This care instruction is for use with your licensed healthcare professional. If you have questions about a medical condition or this instruction, always ask your healthcare professional. Ygle disclaims any warranty or liability for your use of this information. Content Version: 9.9.086256; Last Revised: July 19, 2012 Upper GI [...] Where can you learn more? Go to [email or web address] and sign in to your HouseTrip account. Enter J454 in the Search Health Information box to learn more about Upper GI Endoscopy: What to Expect at Home. . 1783-0518 [employer]. Care instructions adapted under license by [employer]. This care instruction is for use with your licensed healthcare professional. If you have questions about a medical condition or this instruction, always ask your healthcare professional. Ygle disclaims any warranty or liability for your use of this information. Content Version: 9.9.163166; Last Revised: July 19, 2012 Upper GI [...] Where can you learn more? Go to [email or web address] and sign in to your HouseTrip account. Enter J454 in the Search Health Information box to learn more about Upper GI Endoscopy: What to Expect at Home. . 9593-6604 Ygle. Care instructions adapted under license by [employer]. This care instruction is for use with your licensed healthcare professional. If you have questions about a medical condition or this instruction, always ask your healthcare professional. Ygle disclaims any warranty or liability for your use of this information. Content Version: 9.9.149064; Last Revised: July 19, 2012 Upper GI [...] Where can you learn more? Go to [email or web address] and sign in to your HouseTrip account. Enter J454 in the Search Health Information box to learn more about Upper GI Endoscopy: What to Expect at Home. . 7977-1182 Ygle. Care instructions adapted under license by [employer]. This care instruction is for use with your licensed healthcare professional. If you have questions about a medical condition or this instruction, always ask your healthcare professional. Ygle disclaims any warranty or liability for your use of this information. Content Version: 9.9.759880; Last Revised: July 19, 2012 Upper GI [...] Where can you learn more? Go to [email or web address] and sign in to your HouseTrip account. Enter J454 in the Search Health Information box to learn more about Upper GI Endoscopy: What to Expect at Home. . 0697-1903 Ygle. Care instructions adapted under license by [employer]. This care instruction is for use with your licensed healthcare professional. If you have questions about a medical condition or this instruction, always ask your healthcare professional. Ygle disclaims any warranty or liability for your use of this information. Content Version: 9.9.977721; Last Revised: July 19, 2012 Upper GI [...] the day after the test, use an oipe-shw-cvfvtyh spray to numb your throat. Follow-up care [...] Where can you learn more? Go to [email or web address] and sign in to your HouseTrip account. Enter J454 in the Search Health Information box to learn more about Upper GI Endoscopy: What to Expect at Home. If you do not have an account, please click on the Sign Up Now link. Current as of: January 07, 2019Content Version: 12.4 Ygle. Care instructions adapted under license by [employer]. If you have questions about a medical condition or this instruction, always ask your healthcare professional. Ygle disclaims any warranty or liability for your use of this information. documented in this encounter* Attachments The following attachments cannot be sent through Care Everywhere. * URI (Upper Respiratory Infection): Viral (Qatari) documented in this encounter Summary Purpose Family [...] SCAN W EJECTION FRACTION Toño Blanc MD [address] [place] [address] Chief Complaint and Reason for Visit Chief [...] To Contact Diagnoses Dysphagia DX DYSPHAGIA Procedures HI ESOPHAGOGASTRODUODENOSCOPY TRANSORAL DIAGNOSTIC EGD ESOPHAGOGASTRODUODENOSCOPY Toño Blanc MD [address] [place] [address] [facility] Reason Comments Cough pt states onset last week. PT states she is taking Prednisone and Keflex for a sinus infection Status Reason Specialty Diagnoses / Procedures Referred By Contact Referred To Contact Not Required - [facility] Diagnoses Nausea with vomiting, unspecified Procedures [facility] HEPATOBILIARY IMAGING W PHARM Toño Blanc MD [address] [place] [address] [facility] Nuclear Medicine [address] [place] [id number] Reason Comments Abdominal Cramping onset this am [...] section and content) DATE CREATED AUTHOR 10/15/2019 [facility] DATE CREATED AUTHOR AUTHOR'S ORGANIZ ATION 03/07/2020 [facility] DATE CREATED AUTHOR AUTHOR'S ORGANIZ ATION 07/27/2021 [facility] DATE CREATED AUTHOR AUTHOR'S ORGANIZ ATION 09/24/2022 [facility] DATE CREATED AUTHOR AUTHOR'S ORGANIZ ATION 02/12/2023 [facility] DATE CREATED AUTHOR AUTHOR'S ORGANIZ ATION 03/12/2023 [facility] DATE CREATED AUTHOR AUTHOR'S ORGANIZ ATION 06/05/2023 [facility] DATE CREATED AUTHOR AUTHOR'S ORGANIZ ATION 07/08/2023 [facility] DATE CREATED AUTHOR AUTHOR'S ORGANIZ ATION 07/11/2023 [facility] DATE CREATED AUTHOR AUTHOR'S ORGANIZ ATION 11/02/2023 [facility] DATE CREATED AUTHOR AUTHOR'S ORGANIZ ATION 11/02/2023 [facility] Scheduled Active and Recently Administ ered Medications [...] Lynn RN)[id number] (Stopped - Provider: Rachael Lynn, RN) cefTRIAXone (ROCEPHIN) 1,000 mg in sodium [...] Kamara MD Admit Provider, Attending Provider Active Drill Operator Relationship Specialty [place] [id number] PCP - General Internal Medicine 10/11/21 Drill Operator Relationship Specialty [place] [id number] PCP - General Internal Medicine 10/11/21 Team Status: Inactive Member Role Status Dates Matthew Lemus DO Primary Care Provider Active Tae Natarajan MD Attending Provider Active Drill Operator Relationship Specialty Start Date End Date Bridgette Lewis MD [address] [place] [address] PCP - General Internal Medicine 06/30/22 Drill Operator Relationship Specialty Start Date End Date Agustin Ramos [address] [place] [phone] PCP - General 01/27/04 Team Status: Inactive Member Role Status Dates Matthew Lemus DO Primary Care Provider Active Fany Ceballos MD Attending Provider Active Drill Operator Relationship Specialty Start Date End Date Matthew Lemus DO [address] [place] [address] PCP - General Internal Medicine 12/19/22 Goals [...] any alcohol or drug abuse patient.[facility] FOR RECORDS PERTAINING TO PATIENTS WHO [...] BE BASED ON THE PRIMARY CLINICAL RECORDS. [employer] [facility]. provides no warranty or guarantee of the accuracy or completeness of information in this document.
--- NOTE | 2023-11-05 23:56 | ED_ITS ---
HPI - Abdominal Pain General Chief Complaint: Abdominal Pain Stated Complaint: SEVERE ABDOMINAL/VAGINAL PAIN. IUD SHIFT? Time Seen by Provider: 11/05/23 23:22 Source: patient Mode of arrival: walk-in Limitations: no limitations History of Present Illness HPI narrative: 28-year-old female presents for abdominal pain. She is complaining of pain in the midline and right lower abdomen that started at 9 PM while having intercourse. It was of sudden onset and she has had no bleeding. The pain has been continuous. Earlier in the day she had a pelvic ultrasound which showed a 2.1 cm right ovarian cyst and IUD normally placed. No fever or vomiting. The pain is severe and continuous. Related Data Home Medications ?Medication ?Instructions ?Recorded ?Confirmed famotidine 20 mg tablet (Acid 20 mg PO DAILY 04/06/23 07/29/23 Controller) vit 137-ferrous fumarate 1 tab PO DAILY 04/06/23 07/29/23 27 mg iron-folic acid 0.8 mg tablet promethazine 12.5 mg rectal 12.5 mg SD Q6H PRN nausea and 04/06/23 07/29/23 suppository vomiting buspirone 15 mg tablet 15 mg PO BID 07/15/23 07/29/23 clonazepam 0.5 mg tablet 0.5 mg PO BID 07/15/23 07/29/23 levonorgestrel 21 mcg/24 hr (up to intrauterine 07/15/23 8 years) 52 mg intrauterine device (Mirena) omeprazole 20 mg capsule,delayed 20 mg PO QPM 07/15/23 07/29/23 release promethazine 12.5 mg tablet 12.5 mg PO Q6H PRN nausea and 07/15/23 07/29/23 vomiting lisdexamfetamine 40 mg capsule 40 mg PO DAILY 07/29/23 07/29/23 (Vyvanse) Previous Rx's ?Medication ?Instructions ?Recorded hydrocodone 5 mg-acetaminophen 325 1 tab PO Q4H PRN pain 4 days #16 07/29/23 mg tablet tabs ibuprofen 800 mg tablet 800 mg PO Q8H PRN pain 14 days #40 07/29/23 tabs acetaminophen 300 mg-codeine 30 mg 1 tab PO Q6H PRN pain 5 days #20 11/06/23 tablet tabs ibuprofen 800 mg tablet 800 mg PO Q8H PRN pain #20 tabs 11/06/23 Allergies Allergy/AdvReac Type Severity Reaction Status Date / Time azithromycin Allergy Mild itching Verified 11/05/23 22:10 lamotrigine [From Lamictal] Allergy Mild facial Verified 11/05/23 22:10 swelling bee venom protein (honey bee) Allergy swelling Verified 11/05/23 22:10 lurasidone [From Latuda] Allergy suicidal Verified 11/05/23 22:10 ideation Review of Systems ROS Narrative A ten point review of systems is negative except as noted above. [facility] Medical History (Updated 11/06/23 @ 03:03 by Ridge Pathak MD) Panic disorder ?F41.0 - Panic disorder [episodic paroxysmal anxiety] (ICD-10) ADHD ?F90.9 - Attention-deficit hyperactivity disorder, unspecified type (ICD-10) Pain of ovary ?N94.89 - Other specified conditions associated with female genital organs and menstrual cycle (ICD-10) Pelvic pain ?R10.2 - Pelvic and perineal pain (ICD-10) Insomnia ?G47.00 - Insomnia, unspecified (ICD-10) PTSD (post-traumatic stress disorder) ?F43.10 - Post-traumatic stress disorder, unspecified (ICD-10) Panic attacks ?F41.0 - Panic disorder [episodic paroxysmal anxiety] (ICD-10) Bipolar disorder ?F31.9 - Bipolar disorder, unspecified (ICD-10) COVID-19 ?U07.1 - COVID-19 (ICD-10) Vomiting ?R11.10 - Vomiting, unspecified (ICD-10) Nausea ?R11.0 - Nausea (ICD-10) Kidney stones ?N20.0 - Calculus of kidney (ICD-10) GERD (gastroesophageal reflux disease) ?K21.9 - Gastro-esophageal reflux disease without esophagitis (ICD-10) Palpitations ?R00.2 - Palpitations (ICD-10) PONV (postoperative nausea and vomiting) ?R11.2 - Nausea with vomiting, unspecified (ICD-10) ?Z98.890 - Other specified postprocedural states (ICD-10) Migraines ?G43.909 - Migraine, unspecified, not intractable, without status migrainosus (ICD-10) Cystitis ?N30.90 - Cystitis, unspecified without hematuria (ICD-10) Endometriosis ?N80.9 - Endometriosis, unspecified (ICD-10) Depression ?F32.A - Depression, unspecified (ICD-10) Asthma ?J45.909 - Unspecified asthma, uncomplicated (ICD-10) Anxiety ?F41.9 - Anxiety disorder, unspecified (ICD-10) Surgical History (Updated 07/15/23 @ 09:19 by Hannah Lucero NP) History of laparoscopy ?Z98.890 - Other specified postprocedural states (ICD-10) S/P cystoscopy with ureteral stent placement (04/14/23) ?Z96.0 - Presence of urogenital implants (ICD-10) History of umbilical hernia repair ?Z98.890 - Other specified postprocedural states (ICD-10) ?Z87.19 - Personal history of other diseases of the digestive system (ICD-10) History of cystoscopy ?Z98.890 - Other specified postprocedural states (ICD-10) History of ovarian cystectomy ?Z98.890 - Other specified postprocedural states (ICD-10) ?Z87.42 - Personal history of other diseases of the female genital tract (ICD-10) History of endometrial ablation ?Z98.890 - Other specified postprocedural states (ICD-10) History of esophagogastroduodenoscopy (EGD) ?Z98.890 - Other specified postprocedural states (ICD-10) Family History (Updated 07/15/23 @ 09:19 by Hannah Lucero NP) Father Anxiety Depression Other Family history of aneurysm Family history of hypertension Family history of skin cancer Family history of throat cancer TIA (transient ischemic attack) Social History (Updated 04/14/23 @ 08:17 by Ginger Fields RN) Within the past year, how often did you have a drink containing alcohol: monthly or less Smoking status: Never smoker Nicotine containing products detail: vaped for short period stopped last year Non-prescribed substance use: denies use 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 General: The patient appears uncomfortable Skin: Warm, dry, no pallor noted. There is no rash noted. Head: Normocephalic, atraumatic Eye: Normal conjunctiva, no drainage Ears, Nose, Mouth, and Throat: oral mucosa is moist. Nares patent. Cardiovascular: Regular Rate and Rhythm Respiratory: Patient is in no distress, no accessory muscle use, lungs are clear to auscultation, no wheezing, rales or rhonchi Back: non-tender GI: No tenderness on the left side. She has tenderness in the right lower quadrant Musculoskeletal: The patient has no evidence of calf tenderness, no pitting edema, symmetrical pulses noted bilaterally Neurological: A&O, normal speech Psychiatric: Cooperative Constitutional Vital Signs, click to edit/add: Last Vital Signs Temp 97.8 F 11/05/23 22:03 Pulse 63 11/05/23 22:03 Resp 18 11/05/23 22:03 BP 128/84 11/05/23 22:03 Pulse Ox 100 11/05/23 22:03 O2 Del Method Room Air 11/05/23 22:03 Course Vital Signs Vital signs: Vital Signs Temperature 97.8 F 11/05/23 22:03 Pulse Rate 63 11/05/23 22:03 Respiratory Rate 18 11/05/23 22:03 Blood Pressure 128/84 11/05/23 22:03 Pulse Oximetry 100 11/05/23 22:03 Oxygen Delivery Method Room Air 11/05/23 22:03 Temperature 97.8 F 11/05/23 22:03 Pulse Rate 63 11/05/23 22:03 Respiratory Rate 18 11/05/23 22:03 Blood Pressure 128/84 11/05/23 22:03 Pulse Oximetry 100 11/05/23 22:03 Oxygen Delivery Method Room Air 11/05/23 22:03 MDM - Abdominal Pain MDM Narrative Medical decision making narrative: She is not and the ultrasound is negative. No evidence of torsion. IUD is in place. Treatment diagnosis and follow-up were discussed with the patient. Differential Diagnosis Differential diagnosis: Likely abdominal pain, constipation and other (Displaced IUD, ovarian torsion, ovarian cyst) Lab Data Attestation: I reviewed the patient's lab results. Labs: Lab Results 11/06/23 Range/Units 00:05 WBC 10.1 (4.0-11.0) 10^3/uL RBC 4.36 (4.20-5.40) 10^6/uL Hgb 12.8 (12.0-16.0) g/dL Hct 38.1 (36.0-48.0) % MCV 87.4 (81.0-99.0) fL MCH 29.4 (26.7-34.0) pg MCHC 33.6 (29.9-35.2) g/dL RDW 12.2 (11.0-15.0) % Plt Count 325 (150-450) 10^3/uL MPV 10.1 (9.5-13.5) fL Neut % (Auto) 64.6 (43.0-75.0) % Lymph % (Auto) 28.0 (20.5-60.0) % [place] % (Auto) 6.2 (1.7-12.0) % Eos % (Auto) 0.3 L (0.9-7.0) % Baso % (Auto) 0.7 (0.2-2.0) % Neut # (Auto) 6.5 (1.4-6.5) 10^3/uL Lymph # (Auto) 2.8 (1.2-3.8) 10^3/uL [place] # (Auto) 0.6 (0.3-0.8) 10^3/uL Eos # (Auto) 0.0 (0.0-0.7) 10^3/uL Baso # (Auto) 0.1 (0.0-0.1) 10^3/uL Abs Immat Gran (auto) 0.02 (0.00-0.03) 10^3/uL Imm/Tot Granulo (auto) 0.2 (0.0-0.5) % Sodium 139 (136-145) mmol/L Potassium 3.5 (3.5-5.1) mmol/L Chloride 103 (98-107) mmol/L Carbon Dioxide 26.5 (21.0-32.0) mmol/L Anion Gap 13.0 BUN 10.0 (7.0-18.0) mg/dL Creatinine 0.79 (0.55-1.02) mg/dL Est GFR ( Amer) >60 (>=60) Est GFR (Non-Af Amer) >60 (>=60) BUN/Creatinine Ratio 12.7 Glucose 90 (74-106) mg/dL Calcium 8.8 (8.5-10.1) mg/dL Serum HCG, Qual Negative (NEGATIVE) Imaging Data Pelvic ultrasound: Radiologist's impression: ITS Impressions Transvaginal US 11/06/23 00:01 IMPRESSION: 1. An IUD is in place. 2. The uterus and ovaries appear within normal limits. Electronically authenticated by: Jeffrey GONZALEZ Date: 11/06/2023 02:55 Discharge Plan Discharge Stand Alone Forms: Portal Instructions Chief Complaint: Abdominal Pain Clinical Impression: Abdominal pain Patient Disposition: Home, Self-Care Time of Disposition Decision: 03:03 Condition: Good Mode of Transportation: Private Vehicle Prescriptions / Home Meds: New acetaminophen-codeine 300-30 mg tablet 1 tab PO Q6H PRN (Reason: pain) 5 Days Qty: 20 0RF ibuprofen 800 mg tablet 800 mg PO Q8H PRN (Reason: pain) Qty: 20 0RF No Action famotidine [Acid Controller] 20 mg tablet 20 mg PO DAILY [id number] 27mg iron- 0.8 mg tablet 1 tab PO DAILY promethazine 12.5 mg suppository 12.5 mg SD Q6H PRN (Reason: nausea and vomiting) buspirone 15 mg tablet 15 mg PO BID clonazepam 0.5 mg tablet 0.5 mg PO BID omeprazole 20 mg capsule,delayed release(DR/EC) 20 mg PO QPM promethazine 12.5 mg tablet 12.5 mg PO Q6H PRN (Reason: nausea and vomiting) Mirena 21 mcg/24 hours (8 yrs) 52 mg intrauterine device intrauterine lisdexamfetamine [Vyvanse] 40 mg capsule 40 mg PO DAILY ibuprofen 800 mg tablet 800 mg PO Q8H PRN (Reason: pain) 14 Days Qty: 40 0RF hydrocodone-acetaminophen 5-325 mg tablet 1 tab PO Q4H PRN (Reason: pain) 4 Days Qty: 16 0RF Print Language: Chinese Instructions: Abdominal Pain (ED) Referrals: MATTHEW LEMUS [Primary Care Provider] - 1 week
--- NOTE | 2023-11-06 00:01 | US_ITS ---
[address] [address] Patient Name: LULÚ CAICEDO MRN: [id number] date: 1995 Sex: F Assigned Patient Location: ER Current Patient Location: Accession/Order Number: [id number] Exam Date: 11/06/2023 00:25 Report Date: 11/06/2023 02:55 At the request of: LUIS HODGES Procedure: US pelvis transvaginal EXAM: US pelvis transvaginal HISTORY: Severe right lower quadrant pain post intercourse COMPARISON: Pelvic ultrasound examination dated 11/05/2023. TECHNIQUE: Real time pelvic ultrasound examination was performed using Duplex Doppler by transabdominal and transvaginal approaches. FINDINGS: The uterus is normal in size and echogenicity measuring 7.3 cm in length. No focal myometrial lesions are seen. The endometrium is within normal limits with the stripe measuring up to 0.3 cm in thickness. An IUD is in place. The right ovary measures 1.6 x 2.1 x 1.3 cm, and the left ovary measures 2.6 x 2.2 x 1.7 cm. Blood flow is seen in both ovaries. There is no significant free fluid. US/US pelvis transvaginal IMPRESSION: 1. An IUD is in place. 2. The uterus and ovaries appear within normal limits. Electronically authenticated by: Jeffrey GONZALEZ Date: 11/06/2023 02:55
[2023-11-06] MEDS: ONDANSETRON PF 4 MG/2 ML VIAL IV (00:10)
[2023-11-06] MEDS: MORPHINE SULFATE 4 MG/ML VIAL IV (00:10)
[2023-11-06 00:28] LABS: Basophils Absolute Auto 0.1 10^3/uL (0.0-0.1); Basophils Percent Auto 0.7 % (0.2-2.0); Eosinophils Percent Auto 0.3 % (0.9-7.0); Hematocrit 38.1 % (36.0-48.0); Hemoglobin 12.8 g/dL (12.0-16.0); Immature Granulocytes Abs Auto 0.02 10^3/uL (0.00-0.03); Immature Granulocytes Pct Auto 0.2 % (0.0-0.5); Lymphocytes Absolute Auto 2.8 10^3/uL (1.2-3.8); Mean Corpuscular HGB Conc 33.6 g/dL (29.9-35.2); Mean Corpuscular Hemoglobin 29.4 pg (26.7-34.0); Mean Corpuscular Volume 87.4 fL (81.0-99.0); Mean Platelet Volume 10.1 fL (9.5-13.5); Monocytes Absolute Auto 0.6 10^3/uL (0.3-0.8); Monocytes Percent Auto 6.2 % (1.7-12.0); Neutrophils Absolute Auto 6.5 10^3/uL (1.4-6.5); Neutrophils Percent Auto 64.6 % (43.0-75.0); Platelet Count 325 10^3/uL (150-450); Red Blood Count 4.36 10^6/uL (4.20-5.40); Red Cell Distribution Width 12.2 % (11.0-15.0); White Blood Count 10.1 10^3/uL (4.0-11.0)
[2023-11-06 00:38] LABS: BUN Creatinine Ratio 12.7; Calcium 8.8 mg/dL (8.5-10.1); Carbon Dioxide 26.5 mmol/L (21.0-32.0); Chloride 103 mmol/L (98-107); Estimated GFR (African America >60 (>=60); Estimated GFR (Non-African Ame >60 (>=60); Glucose 90 mg/dL (74-106); HCG Qualitative NEGATIVE (NEGATIVE); Potassium 3.5 mmol/L (3.5-5.1); Sodium 139 mmol/L (136-145)
[2023-11-06] MEDS: HYDROCODONE/ACET 5-325 MG TABLET 1 TAB PO (01:02)
[2023-11-06 03:20] VITALS: BP 111/71; PULSE 88; O2SAT 98
== END 2023-11-06 03:23 | disposition home or self-care (01) ==
PROVIDERS: Emergency Provider Emergency Medicine; PCP Internal Medicine
DX: R10.9 Unspecified abdominal pain (principal); R10.2 Pelvic and perineal pain; Z97.5 Presence of (intrauterine) contraceptive device; N83.201 Unspecified ovarian cyst, right side; Z87.891 Personal history of nicotine dependence; K76.0 Fatty (change of) liver, not elsewhere classified
CPT/HCPCS: 36415; 74018; 76775; 76830; 76856; 80048; 84703; 85025; 96374; 96375; 99284

== ENCOUNTER 2024-01-16 12:00 | Outpatient (REF) | payer BC, OTHER, SELFPAY | END 2024-01-16 12:01 | disposition home or self-care (01) | LOC: LAB 12:00 | PROVIDERS: PCP Internal Medicine; Visit Provider Obstetrics & Gynecology | DX: N92.0 Excessive and frequent menstruation with regular cycle (principal) | CPT/HCPCS: 88305 ==

== ENCOUNTER 2024-01-31 10:13 | Outpatient (OUT) | payer BC, OTHER, SELFPAY ==
[2024-01-31 11:14] LABS: Hematocrit 40.1 % (36.0-48.0); Hemoglobin 13.8 g/dL (12.0-16.0); Mean Corpuscular HGB Conc 34.4 g/dL (29.9-35.2); Mean Corpuscular Hemoglobin 31.4 pg (26.7-34.0); Mean Corpuscular Volume 91.1 fL (81.0-99.0); Mean Platelet Volume 10.3 fL (9.5-13.5); Platelet Count 294 10^3/uL (150-450); Red Cell Distribution Width 12.1 % (11.0-15.0); White Blood Count 5.5 10^3/uL (4.0-11.0)
[2024-01-31 11:21] LABS: Alanine Aminotransferase 17 U/L (14-59); Albumin Globulin Ratio 1.2; Albumin Level 3.9 g/dL (3.4-5.0); Alkaline Phosphatase 81 U/L (46-116); Aspartate Amino Transferase 14 U/L (15-37); Bilirubin Direct 0.1 mg/dL (0.0-0.2); Bilirubin Total 0.3 mg/dL (0.2-1.0); Globulin 3.2 g/dL; Total Protein 7.1 g/dL (6.4-8.2)
[2024-01-31 11:24] LABS: INR 1.01; Partial Thromboplastin Time 31.7 sec (22.3-36.2); Prothrombin Time 10.7 sec (9.0-11.6)
[2024-01-31 13:03] LABS: Anion Gap 15.9; Calcium 8.9 mg/dL (8.5-10.1); Carbon Dioxide 25.3 mmol/L (21.0-32.0); Chloride 106 mmol/L (98-107); Estimated GFR (African America >60 (>=60); Estimated GFR (Non-African Ame >60 (>=60); Glucose 92 mg/dL (74-106); Potassium 4.2 mmol/L (3.5-5.1); Sodium 143 mmol/L (136-145)
[2024-01-31 13:14] LABS: Eosinophils Absolute Manual 0.05 10^3/uL (0.00-0.70); Lymphocytes Absolute Manual 2.53 10^3/uL (1.20-3.80); Monocytes Absolute Manual 0.44 10^3/uL (0.30-0.80); Segmented Neut Absolute Manual 2.47 10^3/uL (1.4-6.5)
== END 2024-01-31 10:14 | disposition home or self-care (01) ==
PROVIDERS: PCP Internal Medicine; Visit Provider Obstetrics & Gynecology
DX: Z01.812 Encounter for preprocedural laboratory examination (principal); N92.0 Excessive and frequent menstruation with regular cycle; N94.6 Dysmenorrhea, unspecified; N94.10 Unspecified dyspareunia; N80.9 Endometriosis, unspecified
CPT/HCPCS: 80048; 80076; 85007; 85027; 85610; 85730; 86850; 86900; 86901

== ENCOUNTER 2024-02-06 19:52 | Emergency (ER) | payer BC, OTHER, SELFPAY ==
[2024-02-06 20:23] VITALS: BP 158/82; PULSE 88; TEMP 36.8; O2SAT 99; BMI 24.1
--- NOTE | 2024-02-06 20:40 | ED.FEMALEGU1 ---
HPI - Female Genitourinary General Chief complaint: Vaginal Bleeding Stated complaint: Vaginal Bleeding Time Seen by Provider: 02/06/24 20:21 Source: patient Mode of arrival: walk-in Limitations: no limitations History of Present Illness HPI Narrative: This 28-year-old female with a history of menometrorrhagia and endometriosis who is scheduled for hysterectomy on February 13 presents for evaluation of ongoing vaginal bleeding with lightheadedness, nausea, abdominal cramps and chills. She has not had a documented fever. She denies any dizziness or syncope. She states she has been bleeding on a daily basis for the past 3 months. She has been using 800 mg ibuprofen for control of her pain. Related Data Home Medications ?Medication ?Instructions ?Recorded ?Confirmed promethazine 12.5 mg rectal 12.5 mg [place] Q6H PRN nausea and 04/06/23 01/31/24 suppository vomiting buspirone 15 mg tablet 15 mg PO BID 07/15/23 01/31/24 clonazepam 0.5 mg tablet 0.5 mg PO BID 07/15/23 01/31/24 levonorgestrel 21 mcg/24 hr (up to 1 device intrauterine ONCE 07/15/23 01/31/24 8 years) 52 mg intrauterine device (Mirena) omeprazole 20 mg capsule,delayed 20 mg PO QPM 07/15/23 01/31/24 release promethazine 12.5 mg tablet 12.5 mg PO Q6H PRN nausea and 07/15/23 01/31/24 vomiting baclofen 10 mg tablet 10 mg PO Q12H PRN muscle spasm 01/31/24 01/31/24 fexofenadine 180 mg tablet 180 mg PO DAILY 01/31/24 01/31/24 (Soha Allergy) fluoxetine 20 mg capsule 20 mg PO DAILY 01/31/24 01/31/24 lisdexamfetamine 60 mg capsule 60 mg PO DAILY 01/31/24 01/31/24 lumateperone 42 mg capsule 42 mg PO QPM 01/31/24 01/31/24 (Caplyta) meclizine 25 mg chewable tablet 25 mg PO TID PRN dizziness 01/31/24 01/31/24 (Motion Sickness Relief (meclizine)) Previous Rx's ?Medication ?Instructions ?Recorded ibuprofen 800 mg tablet 800 mg PO Q8H PRN pain #20 tabs 11/06/23 Allergies Allergy/AdvReac Type Severity Reaction Status Date / Time azithromycin Allergy Mild itching Verified 11/05/23 22:10 erythromycin base Allergy Mild Hives Verified 02/06/24 20:29 lamotrigine [From Lamictal] Allergy Mild facial Verified 11/05/23 22:10 swelling bee venom protein (honey bee) Allergy swelling Verified 11/05/23 22:10 hydrocodone Allergy Hallucinati Verified 01/31/24 10:31 ng lurasidone [From Latuda] Allergy suicidal Verified 11/05/23 22:10 ideation Review of Systems ROS Status of ROS 10 or more systems reviewed and unremarkable except as noted in history and below [facility] Medical History (Updated 02/06/24 @ 21:02 by Courtney Mora MD) Dysmenorrhea ?N94.6 - Dysmenorrhea, unspecified (ICD-10) Dyspareunia Menorrhagia ?N92.0 - Excessive and frequent menstruation with regular cycle (ICD-10) Panic disorder ?F41.0 - Panic disorder [episodic paroxysmal anxiety] (ICD-10) ADHD ?F90.9 - Attention-deficit hyperactivity disorder, unspecified type (ICD-10) Pain of ovary ?N94.89 - Other specified conditions associated with female genital organs and menstrual cycle (ICD-10) Pelvic pain ?R10.2 - Pelvic and perineal pain (ICD-10) Insomnia ?G47.00 - Insomnia, unspecified (ICD-10) PTSD (post-traumatic stress disorder) ?F43.10 - Post-traumatic stress disorder, unspecified (ICD-10) Panic attacks ?F41.0 - Panic disorder [episodic paroxysmal anxiety] (ICD-10) Bipolar disorder ?F31.9 - Bipolar disorder, unspecified (ICD-10) COVID-19 ?U07.1 - COVID-19 (ICD-10) Vomiting ?R11.10 - Vomiting, unspecified (ICD-10) Nausea ?R11.0 - Nausea (ICD-10) Kidney stones ?N20.0 - Calculus of kidney (ICD-10) GERD (gastroesophageal reflux disease) ?K21.9 - Gastro-esophageal reflux disease without esophagitis (ICD-10) Palpitations ?R00.2 - Palpitations (ICD-10) PONV (postoperative nausea and vomiting) ?R11.2 - Nausea with vomiting, unspecified (ICD-10) ?Z98.890 - Other specified postprocedural states (ICD-10) Migraines ?G43.909 - Migraine, unspecified, not intractable, without status migrainosus (ICD-10) Cystitis ?N30.90 - Cystitis, unspecified without hematuria (ICD-10) Endometriosis ?N80.9 - Endometriosis, unspecified (ICD-10) Depression ?F32.A - Depression, unspecified (ICD-10) Asthma ?J45.909 - Unspecified asthma, uncomplicated (ICD-10) Anxiety ?F41.9 - Anxiety disorder, unspecified (ICD-10) Surgical History (Updated 01/31/24 @ 10:24 by Hannah Lucero NP) H/O ovarian cystectomy (07/28/20) ?Z98.890 - Other specified postprocedural states (ICD-10) ?Z87.42 - Personal history of other diseases of the female genital tract (ICD-10) History of laparoscopy ?Z98.890 - Other specified postprocedural states (ICD-10) S/P cystoscopy with ureteral stent placement (04/14/23) ?Z96.0 - Presence of urogenital implants (ICD-10) History of umbilical hernia repair ?Z98.890 - Other specified postprocedural states (ICD-10) ?Z87.19 - Personal history of other diseases of the digestive system (ICD-10) History of cystoscopy ?Z98.890 - Other specified postprocedural states (ICD-10) History of ovarian cystectomy ?Z98.890 - Other specified postprocedural states (ICD-10) ?Z87.42 - Personal history of other diseases of the female genital tract (ICD-10) History of endometrial ablation ?Z98.890 - Other specified postprocedural states (ICD-10) History of esophagogastroduodenoscopy (EGD) ?Z98.890 - Other specified postprocedural states (ICD-10) Family History (Updated 07/15/23 @ 09:19 by Hannah Lucero NP) Father Anxiety Depression Other Family history of aneurysm Family history of hypertension Family history of skin cancer Family history of throat cancer TIA (transient ischemic attack) Social History (Updated 04/14/23 @ 08:17 by Ginger Fields RN) Within the past year, how often did you have a drink containing alcohol: monthly or less Smoking status: Never smoker Nicotine containing products detail: vaped for short period stopped last year Non-prescribed substance use: denies use 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 Highest level of school completed/degree received: Associate degree: occupational, technical, vocational program Little interest or pleasure in doing things: not at all Feeling down, depressed, or hopeless: not at all Exam Narrative Exam Narrative: Vital signs and Nursing Notes reviewed: Patient is afebrile with a normal pulse, blood pressure is mildly elevated at 158/82, she has not hypoxic with pulse ox of 99% on room air General: Awake, alert, oriented, no acute distress, lying comfortably on the stretcher HEENT: Normocephalic atraumatic, mucous membranes are moist and pink, eyes are clear, normal conjunctiva, vision is grossly intact, posterior pharynx is normal in appearance. Neck: Supple, no meningeal signs, no anterior or posterior cervical lymphadenopathy Chest: Lungs are clear to auscultation with good air entry, there is no wheezing rhonchi or rales appreciated no accessory muscle use, patient is speaking in complete sentences-no chest wall tenderness to palpation CVS: Regular rate and rhythm S1-S2, no murmurs rubs or gallops, pulses are brisk and equal bilaterally ABD: Soft, nondistended, nontender, no rebound guarding or rigidity, bowel sounds are normal, no pulsatile masses appreciated Extremities: Moving all extremities, no lower extremity tenderness or swelling noted, negative Homans' sign, pulses are brisk and equal bilaterally, small cuts on both proximal tibia due to shaving her legs Skin: Normal in appearance without rash,pallor, petechiae or purpura Neuro: No focal deficits Constitutional Vital Signs, click to edit/add: Last Vital Signs Temp 98.2 F 02/06/24 20:23 Pulse 88 02/06/24 20:23 Resp 18 02/06/24 20:23 BP 158/82 H 02/06/24 20:23 Pulse Ox 99 02/06/24 20:23 O2 Del Method Room Air 02/06/24 20:23 Course Vital Signs Vital signs: Vital Signs Temperature 98.2 F 02/06/24 20:23 Pulse Rate 88 02/06/24 20:23 Respiratory Rate 18 02/06/24 20:23 Blood Pressure 158/82 H 02/06/24 20:23 Pulse Oximetry 99 02/06/24 20:23 Oxygen Delivery Method Room Air 02/06/24 20:23 Temperature 98.2 F 02/06/24 20:23 Pulse Rate 88 02/06/24 20:23 Respiratory Rate 18 02/06/24 20:23 Blood Pressure 158/82 H 02/06/24 20:23 Pulse Oximetry 99 02/06/24 20:23 Oxygen Delivery Method Room Air 02/06/24 20:23 MDM - Female Genitourinary MDM Narrative Medical decision making narrative: This 28-year-old female with a history of endometriosis menometrorrhagia presents for evaluation of multiple complaints including body aches, nausea, chills. She is scheduled to have a hysterectomy on February [address] Valenzuela. She states she has had bleeding for the past several months. Sometimes it is just spotting and sometimes it is heavy bleeding. She doubts the possibility of . She has no chest pain or shortness of breath. She has not had a documented fever. I was concerned that she may be experiencing some degree of anemia and an IV was placed and she was medicated with IV fluids, Toradol and Zofran. She denied that she had any relief of her symptoms from this. She is on several psychiatric medications which may be contributing to some of her symptoms. Routine labs were ordered and are reviewed. Her urine is negative for infection and her test is negative. She has a normal white count and hemoglobin is stable at 12.9. Electrolytes are normal. COVID-19 is negative. The results of the studies were discussed with the patient who verbalized understanding. She states that her symptoms have gotten worse and she has been in the emergency department and she cannot stand the pain she is having all over her entire body. She will be given 1 dose of Percocet prior to discharge and 2 to take home but I am reluctant to prescribe any narcotic analgesics to this patient who is on multiple other medications. I encouraged her to drink plenty of fluids and rest to get strong before her hysterectomy surgery next week. Lab Data Labs: Lab Results 02/06/24 02/06/24 Range/Units 20:55 21:00 WBC 6.9 (4.0-11.0) 10^3/uL RBC 4.23 (4.20-5.40) 10^6/uL Hgb 12.6 (12.0-16.0) g/dL Hct 37.5 (36.0-48.0) % MCV 88.7 (81.0-99.0) fL MCH 29.8 (26.7-34.0) pg MCHC 33.6 (29.9-35.2) g/dL RDW 11.9 (11.0-15.0) % Plt Count 307 (150-450) 10^3/uL MPV 10.1 (9.5-13.5) fL Neut % (Auto) 52.4 (43.0-75.0) % Lymph % (Auto) 37.6 (20.5-60.0) % [place] % (Auto) 8.1 (1.7-12.0) % Eos % (Auto) 0.6 L (0.9-7.0) % Baso % (Auto) 1.0 (0.2-2.0) % Neut # (Auto) 3.6 (1.4-6.5) 10^3/uL Lymph # (Auto) 2.6 (1.2-3.8) 10^3/uL [place] # (Auto) 0.6 (0.3-0.8) 10^3/uL Eos # (Auto) 0.0 (0.0-0.7) 10^3/uL Baso # (Auto) 0.1 (0.0-0.1) 10^3/uL Abs Immat Gran (auto) 0.02 (0.00-0.03) 10^3/uL Imm/Tot Granulo (auto) 0.3 (0.0-0.5) % Sodium 141 (136-145) mmol/L Potassium 3.7 (3.5-5.1) mmol/L Chloride 106 (98-107) mmol/L Carbon Dioxide 27.9 (21.0-32.0) mmol/L Anion Gap 10.8 BUN 14.0 (7.0-18.0) mg/dL Creatinine 1.01 (0.55-1.02) mg/dL Est GFR ( Amer) >60 (>=60) Est GFR (Non-Af Amer) >60 (>=60) BUN/Creatinine Ratio 13.9 Glucose 99 (74-106) mg/dL Calcium 8.7 (8.5-10.1) mg/dL Total Bilirubin 0.6 (0.2-1.0) mg/dL AST 15 (15-37) U/L ALT 14 (14-59) U/L Alkaline Phosphatase 66 (46-116) U/L Total Protein 6.7 (6.4-8.2) g/dL Albumin 3.7 (3.4-5.0) g/dL Globulin 3.0 g/dL Albumin/Globulin Ratio 1.2 Urine Color Lt. yellow (YELLOW) Urine Clarity Sl cloudy (CLEAR) Urine pH 8.0 (5.0-9.0) Ur Specific [place] 1.015 (1.005-1.025) Urine Protein Negative (NEG/TRACE) mg/dL Urine Glucose (UA) Negative (NEGATIVE) mg/dL Urine Ketones Negative (NEGATIVE) mg/dL Urine Occult Blood Negative (NEGATIVE) Urine Nitrite Negative (NEGATIVE) Urine Bilirubin Negative (NEGATIVE) Urine Urobilinogen 0.2 (0.2-1.0) EU/dL Ur Leukocyte Esterase Negative (NEGATIVE) Urine RBC 0-2 (0-2) #/HPF Urine WBC 0-2 A (NONE SEEN) #/HPF Ur Squamous Epith Cells Rare (NONE/RARE) #/LPF Urine Crystals None seen (None Seen) #/HPF Amorphous Sediment Few Urine Bacteria Trace A (NONE SEEN) #/HPF Urine Casts None seen (NONE SEEN) #/LPF Urine Mucus None seen (NONE SEEN) Urine HCG, Qual Negative (NEGATIVE) SARS-CoV-2 Ag (CV2AG) Negative (NEGATIVE) Discharge Plan Discharge Chief Complaint: Vaginal Bleeding Clinical Impression: Menometrorrhagia Patient Disposition: Home, Self-Care Time of Disposition Decision: 21:01 Condition: Good Prescriptions / Home Meds: No Action promethazine 12.5 mg suppository 12.5 mg [place] Q6H PRN (Reason: nausea and vomiting) buspirone 15 mg tablet 15 mg PO BID clonazepam 0.5 mg tablet 0.5 mg PO BID omeprazole 20 mg capsule,delayed release(DR/EC) 20 mg PO QPM promethazine 12.5 mg tablet 12.5 mg PO Q6H PRN (Reason: nausea and vomiting) Mirena 21 mcg/24 hours (8 yrs) 52 mg intrauterine device 1 device intrauterine ONCE ibuprofen 800 mg tablet 800 mg PO Q8H PRN (Reason: pain) Qty: 20 0RF lisdexamfetamine 60 mg capsule 60 mg PO DAILY baclofen 10 mg tablet 10 mg PO Q12H PRN (Reason: muscle spasm) fluoxetine 20 mg capsule 20 mg PO DAILY Caplyta 42 mg capsule 42 mg PO QPM meclizine [Motion Sickness Relief(mecliz)] 25 mg tablet,chewable 25 mg PO TID PRN (Reason: dizziness) fexofenadine [Soha Allergy] 180 mg tablet 180 mg PO DAILY Print Language: [place] Instructions: Menorrhagia (ED) Referrals: Ron Valenzuela DO [Physician] - 1 week MATTHEW LEMUS [Primary Care Provider] - 1 week
--- OUTSIDE RECORDS SUMMARY | 2024-02-06 20:45 | XMS_ITS | CCD ---
Author Organization [facility] CLOSING MACHINE OPERATOR [facility] Care Team Providers Care Office Clerk Routine Name Role Phone Lisseth Johnson Primary Care Provider [phone] TOÑO BLANC Admitting Unavailable TOÑO BLANC Attending Unavailable LISSETH JOHNSON Primary Care Unavailable TOÑO BLANC Referring Unavailable LISSETH JOHNSON Primary Care Unavailable Lisseth Johnson Primary Care Provider BRIANA RUBIO Referring Unavailable LISSETH JOHNSON Primary Care Unavailable MATTHEW LEMUS Primary Care Physician Matthew Lemus Primary Care Provider [phone] Unavailable Primary Care Physician Unavailab le Lisa Primary Care Physician Unavailab le Unavailable Primary Care Physician Unavailab Bridgette Bennett Primary Care Physician Julianava ilBridgette Trimble Unavailable [...] Provider DR MATTHEW LEMUS Primary Care Unavailable BIANCA .DR PEÑA Admitting Unavailable BIANCA ., DR PEÑA Attending Unavailable BIANCA ., DR PEÑA Consulting Unavailable ZIEBER, DR KAROL Ghosh Consulting Unavailable YUHAS, DR CASTRO Primary Care Unavailable BIANCA ., DR PEÑA Admitting Unavailable BIANCA ., DR PEAÑ Attending Unavailable BIANCA ., DR PEÑA Consulting Unavailable BIANCA ., DR PEÑA Attending Unavailable BIANCA ., DR PEÑA Consulting Unavailable BIANCA ., DR PEÑA Admitting Unavailable MISC, DR PADRON Primary Care Unavailable YUHAS, DR CASTRO Primary Care Unavailable LESLIE, DR TABBY Ghosh Consulting Unavailable LUPIS ., ERNESTINE Admitting Unavailable LUPIS ., ERNESTINE Attending Unavailable GRECHNY ., WM CORREA Consulting Unavailabl e LUPIS ., ERNESTINE Consulting Unavailable NOGUEIRA, GIN Consulting Unavailable NAIMA, CHUY Admitting Unavailable NAIMA, CHUY Attending Unavailable BIANCA ., DR PEÑA Consulting Unavailable MISC, DR PADRON Primary Care Unavailable CHUY MCNAAMRA Consulting Unavailable KARASIK ., DR ANGELES Consulting Unavailabl e KARASIK ., DR ANGELES Attending Unavailabl e KARASIK ., DR ANGELES Admitting Unavailabl e MISC, DR PADRON Primary Care Unavailable BIANCA ., DR PEÑA Consulting Unavailable ZIEBER, DR KAROL Ghosh Consulting Unavailable YUHAS, DR CASTRO Primary Care Unavailable BIANCA ., DR PEÑA Attending Unavailable BIANCA ., DR PEÑA Admitting Unavailable YUHAS, DR CASTRO Primary Care Unavailable BIANCA ., DR PEÑA Admitting Unavailable BIANCA ., DR PEÑA Attending Unavailable BIANCA ., DR PEÑA Consulting Unavailable BIANCA ., DR PEÑA Attending Unavailable BIANCA ., DR PEÑA Consulting Unavailable BIANCA ., DR PEÑA Admitting Unavailable MISC, DR PADRON Primary Care Unavailable ZIEBER, DR KAROL Ghosh Consulting Unavailable YUHAS, DR CASTRO Primary Care Unavailable BIANCA ., DR PEÑA Attending Unavailable BIANCA ., DR PEÑA Admitting Unavailable BIANCA ., DR PEÑA Consulting Unavailable BIANCA ., DR PEÑA Admitting Unavailable BIANCA ., DR PEÑA Attending Unavailable BIANCA ., DR PEÑA Consulting Unavailable MISC, DR PADRON Primary Care Unavailable BIANCA ., DR PEÑA Admitting Unavailable BIANCA ., DR PEÑA Attending Unavailable BIANCA ., DR PEÑA Consulting Unavailable MISC, DR PADRON Primary Care Unavailable ZIEBER, DR KAROL Ghsoh Consulting Unavailable YUHAS, DR CASTRO Primary Care Unavailable BIANCA ., DR PEÑA Admitting Unavailable BIANCA ., DR PEÑA Attending Unavailable BIANCA ., DR PEÑA Consulting Unavailable BIANCA ., DR PEÑA Admitting Unavailable MISC, DR PADRON Primary Care Unavailable BIANCA ., DR PEÑA Attending Unavailable YUHAS, DR CASTRO Primary Care Unavailable LUPIS ., ERNESTINE Admitting Unavailable LUPIS ., ERNESTINE Attending Unavailable LUPIS ., ERNESTINE Consulting Unavailable YUHAS, DR CASTRO Primary Care Unavailable BIANCA ., DR PEÑA Admitting Unavailable BIANCA ., DR PEÑA Attending Unavailable BIANCA ., DR PEÑA Consulting Unavailable ZIEBER, DR KAROL Ghosh Consulting Unavailable YUHAS, DR CASTRO Primary Care Unavailable BIANCA ., DR PEÑA Attending Unavailable BIANCA ., DR PEÑA Consulting Unavailable BIANCA ., DR PEÑA Admitting Unavailable FABY ., AUDELIA Consulting Unavailable YUHAS, DR CASTRO Primary Care Unavailable FABY ., AUDELIA Admitting Unavailable FABY . AUDELIA Attending Unavailable YUHAS, DR CASTRO Primary Care Unavailable PAY ., DR THURMAN Consulting Unavailable JEFERSON, DR CASTRO Attending Unavailable JEFERSON, DR CASTRO Admitting Unavailable SYDNEYCHNY ., WM CORREA Consulting UnavailISIDRO Manrique Consulting Unavailable GOVIND JOHNSTON Consulting Unavailable Agustin Ramos Primary Care Provider DO Matthew Lemus Primary Care Provider MD Matthew Leslie Emergency Provider MD Karri Kamara Admit Provider [phone] MD Karri Kamara Attending Provider Sarah Anderson Unavailable Fany Ceballos Unavailable DO Matthew Lemus Primary Care Provider MD Fany Ceballos Attending Provider Matthew Lemus DO Primary Care Provider Rishi MARSHALL Attending Unavailable BRIDGETTE LEWIS Primary Care Unavailable Rishi MARSHALL Attending Unavailable Rishi MARSHALL Attending Unavailable BRIDGETTE LEWIS Primary Care Unavailable Rishi MARSHALL Attending Unavailable DO Matthew Lemus Primary Care Provider [phone] DO Matthew Lemus Attending Provider [phone] YUHAS, MATTHEW L Attending Unavailable YUHAS, MATTHEW L Referring Unavailable YUHAS, MATTHEW L Primary Care Unavailable YUHAS, MATTHEW L Attending Unavailable YUHAS, MATTHEW L Referring Unavailable YUHAS, MATTHEW L Primary Care Unavailable SHIREEN CHAVEZ Attending Unavailable YUHAS, MATTHEW L Referring Unavailable YUHAS, MATTHEW L Primary Care Unavailable YUHAS, MATTHEW L Attending Unavailable YUHAS, MATTHEW L Referring Unavailable YUHAS, MATTHEW L Primary Care Unavailable SHIREEN CHAVEZ Referring Unavailable YUHAS, MATTHEW L Primary Care Unavailable DEBBIE, BRIDGETTE A Primary Care Unavailable VINOD CLARK Attending Unavailable DEBBIE, BRIDGETTE A Primary Care Unavailable LIZZETTE RIBEIRO Attending Unavailable DEBBIE, BRIDGETTE A Primary Care Unavailable COURTNEY VAUGHAN Attending Unavailable DEBBIE, BRIDGETTE A Primary Care Unavailable DEBBIE, BRIDGETTE A Primary Care Unavailable DEBBIE, BRIDGETTE A Primary Care Unavailable VINOD CLARK Attending Unavailable BIANCA, RON Attending Unavailable BIANCA, RON Attending Unavailable BIANCA, RON Attending Unavailable BIANCA, RON Attending Unavailable AUDELIA HOBBS Attending Unavailable BIANCA, RON Attending Unavailable BIANCA, RON Attending Unavailable BIANCA, RON Attending Unavailable Bianca, DO Ron Attending Provider [phone] Casper Arteaga Admitting Unavailab le Casper Arteaga Attending Unavailab le Karines Matthew Primary Care Unavailable Asad, Karri Admitting Unavailable Asad, Karri Attending Unavailable Yuhas, Matthew Primary Care Unavailable Yuhas, Matthew Admitting Unavailable Yuhas, Matthew Primary Care Unavailable Pamelahas, Matthew Attending Unavailable Asaad, Imad Admitting Unavailable Asaad, Imad Attending Unavailable Yuhas, Matthew Primary Care Unavailable Bianca, Ron Admitting Unavailable Bianca, Ron Attending Unavailable Asaad, Imad Admitting Unavailable Asaad, Imad Attending Unavailable Yuhas, Matthew Primary Care Unavailable JORGE LAMAS Attending Unavailable YUHAS, MATTHEW L Referring Unavailable YUHAS, MATTHEW L Primary Care Unavailable YUHAS, MATTHEW L Primary Care Unavailable IFTIKHAR CURRY Attending Unavailable IFTIKHAR CURRY Attending Unavailable IFTIKHAR CURRY Referring Unavailable PAMELAMATTHEW TRIPLETT Primary Care Unavailable MATTHEW LEMUS Primary Care Unavailable MELIZA SMITH Attending Unavailab le GOBIENVENIDOAMBROSIO MIKHAILMELIZA Attending Unavailab MELIZA Espinal Referring Unavailab alex KARINEMATTHEW Cardenas Primary Care Unavailable Allergies Allergy Classification Reported Allergen(s) Allergy Type Date of Onset Reaction(s) Facility (14 sources) bee venom Propensity to adverse reactions to drug 07-15-19 15 [place], [place] (17 sources) Erythromycin; Translations: [ERYTHROMYCIN] Drug Allergy 07-15-19 15 Itching, Dermatitis, Rash, Other (See Comments), pain [place], [place] (20 sources) Azithromycin; Translations: [azithromycin] Drug Allergy 06-07-19 19 Unknown (qualifier value), Swelling, Dermatitis, Rash, pain [facility] (6 sources) Bee pollen; Translations: [bee pollen] Drug Allergy Edema (finding) [facility] (6 sources) Bee/Wasp/Ant venom; Translations: [Bee Stings] Drug allergy Unknown (qualifier value) [facility] (14 sources) lamoTRIgine; Translations: [Lamictal] Drug Allergy [facility] (16 sources) lamoTRIgine; Translations: [lamotrigine] Drug Allergy 01-29-20 22 Swelling, Rash, Facial swelling (finding) [facility] (1 source) Azithromycin Drug Allergy [facility] (2 sources) bee venom Drug allergy (disorder) [facility] (1 source) lamoTRIgine Drug Allergy [facility] (11 sources) lurasidone; Translations: [lurasidone] Drug Allergy 02-03-20 23 Other (See Comments), Suicidal thoughts (finding) [facility] (1 source) Acetaminophen / HYDROcodone; Translations: [acetaminophen-h ydrocodone] Drug Allergy Hallucinations (finding) [facility] (1 source) Azithromycin; Translations: [Zithromax Z-Oscar] Drug Allergy [facility] (3 sources) Acetaminophen; Translations: [acetaminophen] Drug Allergy 12-29-19 Hallucinating [facility] (6 sources) HYDROcodone; Translations: [HYDROCODONE] Drug Allergy 12-29-19 Hallucinating [facility] (3 sources) erythromycin base; Translations: [erythromycin base] Allergy to substance 12-29-19 Rash [facility] (3 sources) Acetaminophen / HYDROcodone; Translations: [HYDROCODONE-JUDIE TAMINOPHEN] Drug Allergy 11-19-19 [facility] (3 sources) BEE VENOM PROTEIN (HONEY BEE); Translations: [BEE VENOM PROTEIN (HONEY BEE)] Propensity to adverse reactions to drug (disorder) 07-15-19 [facility] (1 source) Azithromycin Drug Allergy 05-19-20 [facility] (1 source) lamoTRIgine Drug Allergy 05-19-20 [facility] (1 source) lurasidone Drug Allergy 05-19-20 [facility] Medications Current Medications Medication Drug Class(es) [...] Albuterol (Eqv-ProAir HFA) 90 mcg/inh inhalation aerosol (5 sources) Start: 09-03-2021 take 1 puff(s) by inhalation every six hours Albuterol (Eqv-ProAir HFA) 90 mcg/inh inhalation aerosol puff(s), Inhalation, q6hr, Refill(s) 0 Start Date: 09/03/21 Status: Ordered ALPRAZolam 0.25 mg oral tablet (20 sources) Benzodiazepine Start: 02-10-2022 End: 07-07-2023 take 1 tablet by mouth once daily Alprazolam (Xanax) 0.25 mg Tablet Active 0.25 MG PO Daily February 10, 2022 12:00am Start: 02-10-2022 End: 05-17-2022 take 1 tablet by mouth twice daily Alprazolam (Xanax) 0.25 mg Tablet Active 0.25 MG PO Twice daily February 10, 2022 12:00am Start: 01-08-2021 End: 02-02-2023 take 0.25 mg by mouth twice daily Alprazolam Discontinued 0.25 MG PO Twice daily January 08, 2021 12:00am February 02, 2023 9:36pm take 1 tablet by marion th once [...] mg tablet Start: 09-03-2021 End: 07-07-2023 take 10 mg by mouth twice daily Buspirone Active 10 MG PO Twice daily February 02, 2023 12:00am Start: 01-08-2021 End: 02-02-2023 take 10 mg by mouth twice daily Buspirone Discontinued 10 MG PO Twice daily January 08, 2021 12:00am February 02, 2023 11:17pm Start: 04-07-2018 busPIRone (BUS PAR) 15 MG [...] 2 times daily 0 Active Drospirenone-Ethinyl Estradiol (7 sources) Progestin, Estrogen Start: 02-02-2023 take 1 [...] 200 mg oral tablet (3 sources) Start: take 1 tablet by mouth twice daily [...] (20 sources) Histamine-2 Receptor Antagonist Start: take 10 mg by mouth once daily at bedtime Famotidine (Pepcid) 20 mg Tablet Active 10 MG PO Daily at bedtime February 02, 2023 12:00am Start: 02-02-2023 take 1 tablet by marion [...] mcg fexofenadine hydrochloride 180 mg oral tablet (3 sources) Histamine-1 Receptor Antagonist Start: 05-18-2023 take 1 tablet by mouth once daily Fexofenadine (Soha) 180 mg Tablet Active 180 MG PO Daily May 18, 2023 1:00am fluticasone propionate 0.05 mg/actuat metered dose nasal [...] Disco ntinued 1 SPRAY INTRANASAL Daily January 08, 2021 12:00am February 10, 2022 2:22pm End: 06-15-2022 take 4 puff(s) by inhalation [...] 0 Active levoFLOXacin 500 mg oral tablet (2 sources) Quinolone Antimicrobial Start: 05-25-2023 take 1 tablet by mouth every twenty-four hours Levaquin 500 mg Tab 500 mg = 1 tab(s), Oral, q24hr, # 21 tab(s), Refills(s) 0, Pharmacy: [facility]/pharmacy #[id number], 165, cm, 05/10/23 11:13:00 EST, Height/Length Dosing, 79, kg, 05/10/23 11:13:00 EST, Weight Dosing Start Date: 05/25/23 Status: Ordered 24 hr levomilnacipran 20 mg extended release oral capsule (14 sources) Serotonin and Norepinephrine Reuptake Inhibitor Start: 05-18-2023 take 1 capsule by mouth once daily Levomilnacipran (Fetzima) 20 mg capsule,extended release 24 hr Active 40 MG PO Daily May 18, 2023 2:58pm Start: 05-04-2023 End: 07-07-2023 take 1 capsule [...] Discontinued 20 MG PO Daily 60 February 05, 2023 12:00am May 18, 2023 2:58pm levonorgestrel 0.647871 mg/hr intrauterine system (1 source) Progestin, Progestin-containing [...] omeprazole 20 mg delayed release oral capsule (9 sources) Proton Pump Inhibitor Start: 02-02-2023 take 20 mg by mouth once daily at bedtime Omeprazole Active 20 MG PO Daily at bedtime February 02, 2023 12:00am take 2 capsules by mouth in the [...] (Dr/Ec) Discontinued 40 MG PO Daily January 08, 2021 12:00am February 02, 2023 9:41pm Phentermine (8 sources) Sympathomimetic Amine Anorectic Start: 09-04-2021 take 1 mg by mouth once daily Adipex-P mg, Oral, Daily, Refills(s) 0 Start Date: 09/04/21 Status: Ordered take 1 capsule by [facility] once daily in the morning phentermine 37.5 MG capsule Take 37.5 mg by mouth every morning. 0 Active Plecanatide (Trulance) 3 mg Tablet (3 sources) Start: 05-18-2023 take 1 tablet by mouth once daily Plecanatide (Trulance) 3 mg Tablet Active 3 MG PO Daily May 18, 2023 1:00am Start: 05-18-2023 take 1 tablet by marion th once daily Plecanatide (Trulance) 3 mg Tablet [...] Active tamsulosin hydrochloride 0.4 mg oral capsule (3 sources) alpha-Adrenergic Jade Start: 3 take 1 capsule by mouth once daily Flomax 0.4 mg Cap 0.4 mg = 1 cap(s), Oral, Daily, # 30 cap(s), Refills(s) 0, Pharmacy: [facility]/pharmacy #[id number], 165, cm, 12/17/21 8:42:00 EDT, Height/Length Dosing, 79, kg, 12/17/21 8:42:00 EDT, Weight Dosing Start Date: 04/28/23 Status: Ordered Vitamin D (5 sources) Start: 2 Vitamin D International_Unit, Oral, qWeek, Refills(s) 0 Start Date: 09/04/21 Status: Ordered vortioxetine 5 mg oral tablet (5 sources) Start: 2 take 1 mg by [...] mg / caffeine 40 mg oral capsule (20 sources) Barbiturate, Central Nervous System Stimulant, Methylxanthine Start: 01-19-2022 End: 02-02-2023 take 1 capsule by mouth every four hours Nqgtiqketo-Isjwwlvoaspie-Ccks (Fioricet) 50-300-40 mg Capsule Discontinued 1 CAP PO Q4H February 10, 2022 12:00am February 02, 2023 9:41pm Butalbital-APAP- Caffeine 50-300-40 MG Oral for 3 [...] Tablet Discontinued 15 MG PO Daily February 10, 2022 12:00am February 02, 2023 9:41pm Start: 09-03-2021 take 1 mg by mouth [...] Active bisoprolol fumarate 5 mg oral tablet (6 sources) beta-Adrenergic Jade Start: 01-08-2021 End: 02-02-2023 take 5 mg by mouth once daily Bisoprolol Fumarate Discontinued 5 MG PO Daily January 08, 2021 12:00am February 02, 2023 9:41pm cefdinir 300 mg oral capsule (5 sources) Cephalosporin Antibacterial Start: 02-02-2023 End: 05-18-2023 take 300 mg by mouth twice daily Cefdinir Discontinued 300 MG PO Twice daily February 02, 2023 12:00am May 18, 2023 3:02pm cefTRIAXone (ROCEPHIN) 1,000 mg in sodium chloride 0.9 % 50 mL IVPB (mini-bag) (1 source) Start: 06-30-2022 End: 06-30-2022 cefTRIAXone (ROCEPHIN) 1,000 mg in sodium chloride 0.9 % 50 mL IVPB (mini-bag) ciprofloxacin 500 mg oral tablet (5 sources) Quinolone Antimicrobial Start: 05-06-2023 take 1 tablet by mouth once daily Cipro 500 mg Tab 500 mg = 1 tab(s), Oral, Daily, Take 1 tablet the day before the procedure and 1 tablet after the procedure, # 2 tab(s), Refills(s) 0, Pharmacy: [facility]/pharmacy #[id number], 165, cm, 12/17/21 8:42:00 EDT, [...] desvenlafaxine 100 mg extended release oral tablet (19 sources) Serotonin and Norepinephrine Reuptake Inhibitor Start: 01-08-2021 End: 02-02-2023 take 100 mg by mouth once daily Desvenlafaxine Discontinued 100 MG PO Daily January 08, 2021 12:00am February 02, 2023 9:41pm take 1 tablet by mouth once shamar [...] procedure., # 2 cap(s), Refills(s) 0, Pharmacy: [id number], 165, cm, 09/04/21 9:50:00 EDT, Height/Length Dosing, 79.1, kg, 09/04/21 9:50:00 EDT,... Start Date: 09/04/21 Status: Ordered doxylamine succinate 25 mg oral tablet (8 sources) take 1 tablet by mouth once daily as needed Unisom (doxylamine) 25 mg tablet take 1 tablet by oral route daily as needed fluconazole 150 mg oral tablet (13 sources) Azole Antifungal Start: 04-28-2023 fluconazole 150 mg Tab 300 mg = 2 tab(s), Oral, Once, take 1 tab PO. may repeat dose in 72 hr if still symptomatic., # 2 tab(s), Refills(s) 0, Pharmacy: [facility]/pharmacy #[id number], 165, cm, 12/17/21 8:42:00 EDT, [...] Not-Taking lurasidone hydrochloride 60 mg oral tablet (11 sources) Atypical Antipsychotic Start: 02-02-2023 End: 02-05-2023 take 60 mg by mouth once daily in the morning Lurasidone Discontinued 60 MG PO Every morning February 02, 2023 12:00am February 05, 2023 12:04pm Start: 01-08-2021 End: 01-12-2021 take 1 tablet by mouth at bedtime Lurasidone (Latuda) 80 mg Tablet Discontinued 80 MG PO Bedtime January 08, 2021 12:00am January 12, 2021 10:30am modified 24 hr metFORMIN hydrochloride 500 mg extended release oral tablet (20 sources) Biguanide Start: 02-10-2022 End: 02-02-2023 take 500 mg by mouth twice daily Metformin Discontinued 500 MG PO Twice daily February 10, 2022 12:00am February 02, 2023 9:41pm Start: 09-04-2021 take 1 mg by mouth [...] Tablet Discontinued 4 MG PO Q6H February 10, 2022 12:00am February 02, 2023 9:41pm Start: 01-19-2022 take 1 tablet by marion [...] paliperidone 6 mg extended release oral tablet (9 sources) Atypical Antipsychotic Start: 01-12-2021 End: 02-10-2022 take 6 mg by mouth at bedtime Paliperidone Discontinued 6 MG PO Bedtime January 12, 2021 12:00am February 10, 2022 2:22pm take 1 tablet by marion th once [...] completed) pramipexole dihydrochloride 0.5 mg oral tablet (9 sources) Nonergot Dopamine Agonist Start: 01-08-2021 End: 02-10-2022 take 0.5 mg by mouth twice daily Pramipexole Discontinued 0.5 MG PO Twice daily January 08, 2021 12:00am February 10, 2022 2:23pm take 1 tablet by marion th three [...] 100 mg Tablet Discontinued MG TABLET February 10, 2022 12:00am February 02, 2023 9:41pm Start: 01-19-2022 End: 03-20-2022 take 1 tablet [...] Trazodone Discontinued 150 MG PO Bedtime January 08, 2021 12:00am February 02, 2023 9:41pm Start: 11-10-2016 take 2 tablets by mo [...] at bedtime ziprasidone 60 mg oral capsule (14 sources) Atypical Antipsychotic Start: 06-02-2023 End: 07-07-2023 [...] PO Daily after supper May 18, 2023 3:02pm Start: 02-05-2023 End: 05-18-2023 take 20 mg by mouth once daily Ziprasidone Hcl Discont inued 20 MG PO Daily after supper February 05, 2023 12:00am May 18, 2023 3:02pm take 1 capsule by mo uth at bedtime Geodon 40 MG 1 capsule with food Orally HS Active take 1 capsule by mo uth every twelve hours Geodon 20 MG 1 capsule with food Orally Twice a day Active Problems Active Problems Problem Classification Problem Date Documented Da te Episodic/Chronic Anxiety disorders (20 sources) Generalized anxiety disorder; Translations: [Anxiety] Onset: 10-09-2014 11-08-2014 Chronic Asthma (20 sources) Asthmatic bronchitis; Translations: [Asthma] Onset: 02-04-2015 02-04-2015 Chronic Bacterial infection; unspecified site (1 source) Bacterial infection, unspecified; Translations: [Bacterial infection, unspecified] Onset: 01-11-2024 Episodic Conditions associated with dizziness or vertigo (5 sources) Dizziness and giddiness; Translations: [Benign paroxysmal vertigo, left ear] Onset: 06-17-2022 Episodic Diabetes mellitus without complication (4 sources) Other abnormal glucose; Translations: [OTHER ABNORMAL GLUCOSE] Onset: 08-30-2022 Episodic Disorders of lipid metabolism (20 sources) Hyperlipidemia; Translations: [Other and unspecified hyperlipidemia] Onset: 02-09-2022 Chronic E Codes: Adverse effects of medical drugs (1 source) Adverse effect of unspecified drugs, medicaments and biological substances, initial encounter; Translations: [Adverse effect of unspecified drugs, medicaments and biological substances, initial encounter] Onset: 01-11-2024 Episodic Endometriosis (20 sources) Endometriosis (clinical); Translations: [Endometriosis, unspecified] Onset: 02-25-2021 09-03-2021 Chronic Fluid and electrolyte disorders (8 sources) Dehydration; Translations: [Hypokalemia] Onset: 06-18-2022 Episodic Genitourinary symptoms and ill-defined conditions (7 sources) Urge incontinence; Translations: [Urge incontinence of [...] without hemorrhage, unspecified trimester] Onset: 08-17-2022 Episodic Hepatitis (2 sources) Nonalcoholic steatohepatitis ([place]); Translations: [Nonalcoholic steatohepatitis ([place])] Onset: 12-06-2023 Chronic Immunizations and screening for infectious disease (20 sources) Encounter for screening for respiratory tuberculosis; Translations: [Contact with and (suspected) exposure to infections with a predominantly sexual mode of transmission] Onset: 12-23-2021 Episodic Joint disorders and dislocations; trauma-related (1 source) Chondromalacia of patella; Translations: [Chondromalacia patellae, unspecified knee] Onset: 04-26-2022 04-26-2022 Chronic Malaise and fatigue (1 source) Fatigue Onset: 11-21-2023 Episodic Menstrual disorders (9 sources) Irregular menstruation, [...] and vomiting; Translations: [Nausea] Onset: 06-17-2022 Episodic Nonspecific chest pain (4 sources) Other chest pain; Translations: [Chest pain, unspecified] Onset: 11-19-2023 Episodic Other aftercare (1 source) Other assisted (current) drug therapy; Translations: [OTH HALFWAY CURRENT DRUG THERAPY] Onset: 09-20-2022 Episodic Other bone disease and musculoskeletal deformities (1 source) Segmental and somatic dysfunction of cervical region; Translations: [Segmental and somatic dysfunction of cervical region] Onset: 11-21-2023 Episodic Other bone disease and musculoskeletal deformities (1 source) Segmental and somatic dysfunction of thoracic region; Translations: [Segmental and somatic dysfunction of thoracic region] Onset: 11-21-2023 Episodic Other complications of (1 source) Other mental disorders complicating , third trimester; Translations: [OTH MENTAL D/O COMP PREG THIRD TRI] Onset: 09-20-2022 Episodic Other complications of (4 sources) Other specified related conditions, second trimester; Translations: [OTH SPEC PREG RELATED COND 2ND TRI] Onset: 09-04-2022 Episodic Other disorders of stomach and duodenum (2 sources) Delayed gastric emptying; Translations: [Functional dyspepsia] Episodic Other endocrine disorders (14 sources) Polycystic [...] Translations: [Dysphagia, oropharyngeal phase] 07-07-2023 Episodic Other injuries and conditions due to external causes (4 sources) Foreign body in bladder; Translations: [Foreign body in bladder, initial encounter] Onset: 05-10-2023 Episodic Other liver diseases (1 source) Fatty liver Onset: 12-06-2023 Chronic Other lower respiratory disease (1 source) Shortness of breath Onset: 11-21-2023 Episodic Other nutritional; endocrine; and metabolic disorders (4 sources) Anorexia Onset: 01-19-2023 Episodic Other and delivery including normal (20 sources) Encounter for supervision of normal , unspecified, unspecified trimester; Translations: [Encounter for supervision of normal first , first trimester] Onset: 03-17-2022 Episodic Other screening for suspected conditions (not mental disorders or infectious disease) (5 sources) Encounter for screening for malignant neoplasm of cervix; Translations: [Abnormal findings on diagnostic imaging of other abdominal regions, including retroperitoneum] Onset: 07-06-2022 Episodic Other upper respiratory disease [...] [Borderline personality disorder] Onset: 11-10-2021 11-10-2021 Chronic Pleurisy; pneumothorax; pulmonary collapse (1 source) Pleurisy; Translations: [Pleurisy] Onset: 11-19-2023 Episodic Residual codes; unclassified (6 sources) Hallucinations; Translations: [Hallucinations, unspecified] 01-08-2021 Episodic [...] 07-24-2022 Episodic Schizophrenia and other psychotic disorders (5 sources) Schizophrenia 09-03-2021 Chronic Spondylosis; intervertebral disc disorders; other back problems (14 sources) Acute back pain with sciatica; Translations: [Lumbago with sciatica, unspecified side] Onset: 06-08-2016 06-08-2016 Episodic Sprains and strains (1 source) Strain of muscle and tendon of unspecified wall of thorax, initial encounter; Translations: [Strain of muscle and tendon of unspecified wall of thorax, initial encounter] Onset: 01-23-2024 Episodic Unclassified (1 source) CONTACT W/AND (SUSP) EXPOS COVID-19; Translations: [CONTACT W/AND (SUSP) EXPOS COVID-19] Onset: 05-28-2022 Unclassified (1 source) Thyroid Problem Onset: 07-07-2023 Unclassified (1 source) Subacute cough; Translations: [Subacute cough] Onset: 11-17-2023 Urinary tract infections (12 sources) Cystitis; Translations: [Cystitis, unspecified without hematuria] Onset: 09-04-2021 Episodic Past or Other Problems Problem Classification Problem Date Documented Da te Episodic/Chronic Abdominal pain (20 sources) Epigastric pain; Translations: [Abdominal pain] Onset: 09-13-2015 09-16-2015 Episodic Cardiac dysrhythmias (20 sources) Tachycardia; Translations: [Tachycardia, unspecified] Onset: 02-09-2022 Episodic Joint disorders and dislocations; trauma-related (1 [...] COND 1ST TRI] Onset: 05-26-2022 Episodic Other disorders of stomach and duodenum (2 sources) Functional dyspepsia; Translations: [Functional dyspepsia] Onset: 05-12-2023 Episodic Other gastrointestinal disorders (1 source) Dysphagia, oropharyngeal phase; Translations: [Dysphagia, oropharyngeal phase] Onset: 07-07-2023 Episodic Ovarian cyst (1 source) Corpus luteum [...] WEEKS GESTATION OF ] Onset: 05-28-2022 Episodic Suicide and intentional self-inflicted injury (8 sources) Suicidal thoughts; Translations: [Suicidal ideations] Onset: 02-02-2023 01-08-2021 Episodic Results Test Name Value Interpretation Reference Range Facility BASIC METABOLIC PANLon 01-22 Anion gap [Moles/Vol] 7 mmol/L Normal 5-15 [facility] Comment on above: Performed By: #### B KEITH, 3040-3, CBCA, LIVR #### [facility] ([id number]) [address] [place] [address] 50326 Calcium [Mass/Vol] 8.5 mg/dL Normal 8.5-10.5 [facility] Comment on above: Performed By: #### B KEITH, 3040-3, CBCA, LIVR #### [facility] ([id number]) [address] [place] [address] 07636 Chloride [Moles/Vol] 108 mmol/L Normal 98-109 [facility] Comment on above: Performed By: #### B KEIHT, 3040-3, CBCA, LIVR #### [facility] ([id number]) [address] [place] [address] 41237 CO2 [Moles/Vol] 25 mmol/L Normal 22-32 [facility] Comment on above: Performed By: #### B KEITH, 3040-3, CBCA, LIVR #### [facility] ([id number]) [address] [place] [address] 03439 Creatinine [Mass/Vol] 0.80 mg/dL Normal 0.40-1.00 [facility] Comment on above: Result Comment: METH OD TRACEABLE TO IDMS STANDARD Performed By: #### B KEITH, 3040-3, CBCA, LIVR #### [facility] ([id number]) [address] [place] [address] 88129 eGFR (CKD-EPI) NON-RACE DEPENDENT >90 Normal >59 [facility] Comment on above: Result Comment: Reported eGFR is based on the CKD-EPI 2020 equation that does not use a race coefficient. Performed By: #### B KEITH, 3040-3, CBCA, LIVR #### [facility] ([id number]) [address] [place] [address] 89260 Glucose [Mass/Vol] 100 mg/dL High 65-99 [facility] Comment on above: Performed By: #### B KEITH, 3040-3, CBCA, LIVR #### [facility] ([id number]) [address] [place] [address] 12806 Potassium [Moles/Vol] 3.8 mmol/L Normal 3.5-5.0 [facility] Comment on above: Performed By: #### B KEITH, 3040-3, CBCA, LIVR #### [facility] ([id number]) [address] [place] [address] 23419 Sodium [Moles/Vol] 140 mmol/L Normal 134-146 [facility] Comment on above: Performed By: #### B KEITH, 3040-3, CBCA, LIVR #### [facility] ([id number]) [address] [place] [address] 76663 Urea nitrogen [Mass/Vol] 12 mg/dL Normal 5-23 [facility] Comment on above: Performed By: #### B MP, 3040-3, CBCA, LIVR #### [facility] ([id number]) [address] [place] [address] 00185 CBC AND AUTO DIFFon 01-23-20 24 ABSOLUTE BASOPHIL 0.1 X10E9/L Normal 0.0-0.2 [facility] Comment on above: Performed By: #### C BCA, CMP, 26914-9, 48869-1 #### [facility] ([id number]) [address] [place] [address] 56594 ABSOLUTE NEUTROPHIL 3.8 X10E9/L Normal 1.5-6.6 [facility] Comment on above: Performed By: #### Franco CHACON, CMP, 03696-9, 27948-5 #### [facility] ([id number]) [address] [place] [address] 18401 Basophils/100 WBC (Bld) 0.8 % Normal [facility] Comment on above: Performed By: #### C BCA, CMP, 03520-6, 40247-3 #### [facility] ([id number]) [address] [place] [address] 98516 Eosinophils (Bld) [#/Vol] 0.1 10*3/uL Normal 0.0-0.4 [facility] Comment on above: Performed By: #### C BCA, CMP, 45979-2, 70078-3 #### [facility] ([id number]) [address] [place] [address] 41561 Eosinophils/100 WBC (Bld) 0.9 % Normal [facility] Comment on above: Performed By: #### C BCA, CMP, 19639-9, 38843-8 #### [facility] ([id number]) [address] [place] [address] 83993 Erythrocyte distribution width (RBC) [Ratio] 13.2 % Normal 11.5-15.0 [facility] Comment on above: Performed By: #### C PIPO CHACON, 82371-4, 07321-5 #### [facility] ([id number]) [address] [place] [address] 69230 Hematocrit (Bld) [Volume fraction] 38.9 % Normal 35-47 [facility] Comment on above: Performed By: #### Franco CHACON CMP, 40925-3, 36749-0 #### [facility] ([id number]) [address] [place] [address] 76553 Hemoglobin (Bld) [Mass/Vol] 13.1 g/dL Normal 11.7-15.5 [facility] Comment on above: Performed By: #### Franco CHACON CMP, 17845-4, 12477-2 #### [facility] ([id number]) [address] [place] [address] 93775 Lymphocytes (Bld) [#/Vol] 2.4 10*3/uL Normal 1.0-3.5 [facility] Comment on above: Performed By: #### Franco CHACON CMP, 28782-2, 24676-4 #### [facility] ([id number]) [address] [place] [address] 58826 Lymphocytes/100 WBC (Bld) 34.9 % Normal [facility] Comment on above: Performed By: #### Franco CHACON CMP, 40359-6, 16962-8 #### [facility] ([id number]) [address] [place] [address] 46762 MCH (RBC) [Entitic mass] 30.3 pg Normal 27-34 [facility] Comment on above: Performed By: #### Franco CHACON CMP, 37975-0, 51726-8 #### [facility] ([id number]) [address] [place] [address] [place] [address] MCHC (RBC) [Mass/Vol] 33.6 g/dL Normal 32-36 [facility] Comment on above: Performed By: #### Franco CHACON CMP, 69605-2, 73636-6 #### [facility] ([id number]) [address] [place] [address] 11682 MCV (RBC) [Entitic vol] 90 fL Normal 80-100 [facility] Comment on above: Performed By: #### C OSWALDO, CMP, 28881-2, 73549-9 #### [facility] ([id number]) [address] [place] [address] 53492 Monocytes (Bld) [#/Vol] 0.6 10*3/uL Normal 0-0.9 [facility] Comment on above: Performed By: #### Franco CHACON, CMP, 61878-7, 14272-2 #### [facility] ([id number]) [address] [place] [address] 18591 Monocytes/100 WBC (Bld) 9.3 % Normal [facility] Comment on above: Performed By: #### Franco CHACON, CMP, 05016-8, 31243-5 #### [facility] ([id number]) [address] [place] [address] 24597 Neutrophils/100 WBC (Bld) 54.1 % Normal [facility] Comment on above: Performed By: #### Franco CHACON, CMP, 17032-7, 53038-7 #### [facility] ([id number]) [address] [place] [address] 81979 Platelet mean volume (Bld) [Entitic vol] 8.5 fL Normal 7-12 [facility] Comment on above: Performed By: #### Franco CHACON, CMP, 48132-0, 06630-0 #### [facility] ([id number]) [address] [place] [address] 59616 Platelets (Bld) [#/Vol] 342 10*3/uL Normal 150-450 [facility] Comment on above: Performed By: #### C OSWALDO CMP, 36981-2, 57575-4 #### [facility] ([id number]) [address] [place] [address] 27589 RBC COUNT 4.31 X10E12/L Normal 3.80-5.20 [facility] Comment on above: Performed By: #### C OSWALDO, CMP, 53113-8, 96443-5 #### [facility] ([id number]) [address] [place] [address] 83413 WBC (Bld) [#/Vol] 7.0 10*3/uL Normal 4.0-11.0 [facility] Comment on above: Performed By: #### C OSWALDO, CMP, 71863-6, 19005-5 #### [facility] ([id number]) [address] [place] [address] 64848 HCG ( test) Ql (U)o n 01-23-2024 Beta HCG ( test) Ql (U) Negative Normal NEG [facility] Comment on above: Performed By: #### C OSWALDO, CMP, 03638-1, 60114-5 #### [facility] ([id number]) [address] [place] [address] 40159 LIPASEon 01-23-2024 Lipase [Catalytic activity/Vol] 40 U/L Normal 17-40 [facility] Comment on above: Performed By: #### B MP, 3040-3, CBCA, LIVR #### [facility] ([id number]) [address] [place] [address] 39689 LIVER PANELon 01-23-2024 Albumin [Mass/Vol] 4.1 g/dL Normal 3.2-5.3 [facility] Comment on above: Performed By: #### C BCA, CMP, 30341-4, 68278-3 #### [facility] ([id number]) [address] [place] [address] 95904 ALP [Catalytic activity/Vol] 70 U/L Normal 39-130 [facility] Comment on above: Performed By: #### C BCA, CMP, 73043-5, 36312-2 #### [facility] ([id number]) [address] [place] [address] 22639 ALT [Catalytic activity/Vol] 15 U/L Normal 0-31 [facility] Comment on above: Performed By: #### C BCA, CMP, 13512-2, 36858-1 #### [facility] ([id number]) [address] [place] [address] 87141 AST [Catalytic activity/Vol] 15 U/L Normal 0-41 [facility] Comment on above: Performed By: #### C BCA, CMP, 95519-0, 66016-8 #### [facility] ([id number]) [address] [place] [address] 84853 Bilirubin [Mass/Vol] 0.3 mg/dL Normal 0.3-1.2 [facility] Comment on above: Performed By: #### C BCA, CMP, 58142-1, 03381-6 #### [facility] ([id number]) [address] [place] [address] 84236 Bilirubin.indirect [Mass/Vol] mg/dL Normal 0.0-0.4 [facility] Comment on above: Performed By: #### C BCA, CMP, 13674-5, 43430-6 #### [facility] ([id number]) [address] [place] [address] 73406 Protein [Mass/Vol] 7.2 g/dL Normal 6.0-8.0 [facility] Comment on above: Performed By: #### C BCA, CMP, 06500-3, 26849-7 #### [facility] ([id number]) [address] [place] [address] 83700 URN MACROSCOPIC NURon 2023 BILIRUBIN NADYA Negative Normal NEG [facility] Comment on above: Performed By: #### C BCA, CMP, 09960-3, 75945-9 #### [facility] ([id number]) [address] [place] [address] 57654 BLOOD/HGB NADYA Negative Normal NEG [facility] Comment on above: Performed By: #### C BCA, CMP, 76048-9, 93422-3 #### [facility] ([id number]) [address] [place] [address] [place] [address] GLUCOSE NADYA Negative Normal NEG [facility] Comment on above: Performed By: #### C OSWALDO, CMP, 51160-0, 48399-6 #### [facility] ([id number]) [address] [place] [address] [place] [address] KETONES NADYA Negative Normal NEG [facility] Comment on above: Performed By: #### C OSWALDO, CMP, 73476-5, 83148-0 #### [facility] ([id number]) [address] [place] [address] [place] [address] LEUKOCYTE ESTERASE NADYA Negative Normal NEG [facility] Comment on above: Performed By: #### C BCA, CMP, 41998-0, 82057-4 #### [facility] ([id number]) [address] [place] [address] 41194 NITRITE NADYA Negative Normal NEG [facility] Comment on above: Performed By: #### C BCA, CMP, 79233-9, 19239-2 #### [facility] ([id number]) [address] [place] [address] 64891 PH NADYA 7.0 Normal 5.0-8.5 [facility] Comment on above: Performed By: #### C OSWALDO CMP, 94457-4, 65394-4 #### [facility] ([id number]) [address] [place] [address] 88580 PROTEIN NADYA Negative Normal NEG [facility] Comment on above: Performed By: #### C OSWALDO CMP, 85130-1, 05488-7 #### [facility] ([id number]) [address] [place] [address] 26797 SPECIFIC GRAVITY NADYA 1.025 Normal 1.003-1.035 [facility] Comment on above: Performed By: #### C OSWALDO [facility], 28297-4, 65805-3 #### [facility] ([id number]) [address] [place] [address] 67236 UROBILINOGEN NADYA 0.2 eu/dL Normal <1.1 [facility] Comment on above: Performed By: #### C OSWALDO [facility], 83466-7, 17034-4 #### [facility] ([id number]) [address] [place] [address] 62562 XR SPINE THORACIC 3 VWSon XR SPINE THORACIC 3 VWS XR SPINE THORACI C 3 VWS XR SPINE THORACIC 3 VWS CLINICAL HISTORY: Back pain COMPARISON: None Three-view thoracic spine. Vertebral body heights are preserved. Vertebral body alignment is maintained. No pathologic intervertebral disc space narrowing. Upper thoracic spine partially obscured by overlying densities. IMPRESSION: * No acute osseous abnormality. If symptoms persist, consider MRI for further characterization. Approved by Resident Juan Ramon Ryan DO on 01/23/2024 9:02 AM Christine Mendez MD have personally reviewed the image(s) and agree with and/or edited the report Finalized by Christine Yoon MD on 01/23/2024 9:09 AM Normal [facility] Pathology Request for Lab Co rpon 01-16-2024 Pathology Request for Lab Neetu Normal [facility] Comment on above: Order Comment: Name Collection Type:: Clean-Voided Midstream Result Comment: See report. Scanned copy available in EMR. PERFORMED BY: [facility] [address] [facility] [place] [address] PATHOLOGIST SPLITTER OPERATOR MOISES VELASCO M.D. Performed By: #### C UU, UHCG, ADDONUAPLUS, URDS #### [facility] [address] [id number] [place] Cult,Urineon 01-13-2024 Cult,Urine Specimen Description .CLEAN CATCH URINE Special Requests Site: Urine Culture NO SIGNIFICANT GROWTH Report Status FINAL 01/13/2024 Normal [facility] Comment on above: Performed By: #### D DEBBI, CDP, CP, MG #### [address] [place] [id number] Petroleum Inspector: Cholo Alicea MD CBC with Diffon 01-11-2024 Abs. Basophil 0.04 k/uL Normal 0.00-0.20 [facility] Comment on above: Performed By: #### D DEBBI, CDP, CP, MG #### [address] [place] [address] Petroleum Inspector: Cholo Alicea MD Abs. Eosinophil <0.03 Normal 0.00-0.44 [facility] Comment on above: Performed By: #### D DEBBI, CDP, CP, MG #### [address] [place] [address] Petroleum Inspector: Cholo Alicea MD Abs.Imm.Granulocyte 0.04 k/uL Normal 0.00-0.30 [facility] Comment on above: Performed By: #### D DEBBI, CDP, CP, MG #### [address] [place] [address] Petroleum Inspector: Cholo Alicea MD Abs.Neutrophil (Seg) 11.70 k/uL High 1.50-8.10 [facility] Comment on above: Performed By: #### D DEBBI, CDP, CP, MG #### [facility] [address] [place] [address] [place] [address] Petroleum Inspector: Cholo Alicea MD Basophils/100 WBC (Bld) 0 % Normal 0-2 M [facility] Comment on above: Performed By: #### D DEBBI, CDP, CP, MG #### [address] [place], [facility] Petroleum Inspector: Cholo Alicea MD Eosinophils/100 WBC (Bld) 0 % Low 1-4 [facility] Comment on above: Performed By: #### D DEBBI, CDP, CP, MG #### [address] [place], [facility] Petroleum Inspector: Cholo Alicea MD Erythrocyte distribution width (RBC) [Ratio] 12.1 % Normal 11.8-14.4 [facility] Comment on above: Performed By: #### D DEBBI, CDP, CP, MG #### [address] [place] [address] Petroleum Inspector: Cholo Alicea MD Hematocrit (Bld) [Volume fraction] 41.8 % Normal 36.3-47.1 [facility] Comment on above: Performed By: #### D DEBBI, CDP, CP, MG #### [address] [place], [facility] Petroleum Inspector: Cholo Alicea MD Hemoglobin (Bld) [Mass/Vol] 15.2 g/dL High 11.9-15.1 [facility] Comment on above: Performed By: #### D DEBBI, CDP, CP, MG #### [address] [place] [address] Petroleum Inspector: Cholo Alicea MD Immature granulocytes/100 WBC (Bld) 0 % Normal 0 [facility] Comment on above: Performed By: #### D DEBBI, CDP, CP, MG #### [facility] [address] [place], [place] [address] Petroleum Inspector: Cholo Alicea MD Lymphocytes (Bld) [#/Vol] 0.77 10*3/uL Low 1.10-3.70 [facility] Comment on above: Performed By: #### D DEBBI, CDP, CP, MG #### [facility] [address] [place], [facility] Petroleum Inspector: Cholo Alicea MD Lymphocytes/100 WBC (Bld) 6 % Low 24-43 [facility] Comment on above: Performed By: #### D DEBBI, CDP, CP, MG #### [address] [place], [facility] Petroleum Inspector: Cholo Alicea MD MCH (RBC) [Entitic mass] 30.5 pg Normal 25.2-33.5 [facility] Comment on above: Performed By: #### D DEBBI, CDP, CP, MG #### [address] [place] [address] Petroleum Inspector: Cholo Alicea MD MCHC (RBC) [Mass/Vol] 36.4 g/dL High 28.4-34.8 [facility] Comment on above: Performed By: #### D DEBBI, CDP, CP, MG #### [address] [place], [facility] Petroleum Inspector: Cholo Alicea MD MCV (RBC) [Entitic vol] 83.8 fL Normal 82.6-102.9 M [facility] Comment on above: Performed By: #### D DEBBI, CDP, CP, MG #### [address] [place] [address] Petroleum Inspector: Cholo Alicea MD Monocytes (Bld) [#/Vol] 0.13 10*3/uL Normal 0.10-1.20 [facility] Comment on above: Performed By: #### D DEBBI, CDP, CP, MG #### [facility] [address] [place], [facility] Petroleum Inspector: Cholo Alicea MD Monocytes/100 WBC (Bld) 1 % Low 3-12 M [facility] Comment on above: Performed By: #### D DEBBI, CDP, CP, MG #### [facility] [address] [place], [place] [address] Petroleum Inspector: Cholo Alicea MD Neutrophil (Seg) 92 % High 36-65 [facility] Comment on above: Performed By: #### D DEBBI, CDP, CP, MG #### [facility] [address] [place], [facility] Petroleum Inspector: Cholo Alicea MD NRBC Automated 0.0 per 100 WBC Normal 0.0 [facility] Comment on above: Performed By: #### D DEBBI, CDP, CP, MG #### [address] [place], [facility] Petroleum Inspector: Cholo Alicea MD Platelet mean volume (Bld) [Entitic vol] 10.3 fL Normal 8.1-13.5 [facility] Comment on above: Performed By: #### D DEBBI, CDP, CP, MG #### [facility] [address] [place] [address] Dr[place], [place] [address] Petroleum Inspector: Cholo Alicea MD Platelets (Bld) [#/Vol] 377 10*3/uL Normal 138-453 [facility] Comment on above: Performed By: #### D DEBBI, CDP, CP, MG #### [address] [place], [place] [id number] Petroleum Inspector: Cholo Alicea MD RBC (Bld) [#/Vol] 4.99 10*6/uL Normal 3.95-5.11 [facility] Comment on above: Performed By: #### D DEBBI, CDP, CP, MG #### [facility] [address] [place] [address] Petroleum Inspector: Cholo Alicea MD WBC (Bld) [#/Vol] 12.7 10*3/uL High 3.5-11.3 [facility] Comment on above: Performed By: #### D DEBBI, CDP, CP, MG #### [facility] [address] [place] [address] Petroleum Inspector: Cholo Alicea MD CT ABDOMEN PELVIS WO CONTRAS Ton 01-11-2024 CT ABDOMEN PELVIS WO CONTRAST EXAMINATION: CT OF THE ABDOMEN AND PELVIS WITHOUT CONTRAST 01/11/2024 7:25 pm TECHNIQUE: CT of the abdomen and pelvis was performed without the administration of intravenous contrast. Multiplanar reformatted images are provided for review. Automated exposure control, iterative reconstruction, and/or weight based adjustment of the mA/kV was utilized to reduce the radiation dose to as low as reasonably achievable. COMPARISON: 03/10/2023 HISTORY: ORDERING SYSTEM PROVIDED HISTORY: hematuria/flank pain TECHNOLOGIST PROVIDED HISTORY: hematuria/flank pain Decision Support Exception - unselect if not a suspected or confirmed emergency medical condition->Emergency Medical Condition (MA) Is the patient ?->No FINDINGS: Lower Chest: Unremarkable. Organs: Liver is normal in contour and attenuation. Gallbladder is unremarkable. No biliary duct dilatation. Pancreas, adrenals, kidneys, spleen, vasculature unremarkable. GI/Bowel: Bowel is nondilated without wall thickening. Pelvis: Unremarkable. Peritoneum/Retroperi toneum: No free air, free fluid, organized fluid collection, lymphadenopathy. Bones/Soft Tissues: No acute bone or soft tissue abnormality. IMPRESSION: No acute process. Interpreted by: Raulito Hinds MD Signed by: Raulito Hinds MD 01/11/24 Final result Normal [facility] Comp Metabolic Profon 2023 Albumin [Mass/Vol] 5.0 g/dL Normal 3.5-5.2 [facility] Comment on above: Performed By: #### D DEBBI, CDP, CP, MG #### [facility] [address] [place], [place] 135[address]83 Petroleum Inspector: Cholo Alicea MD Albumin/Glob Ratio 1.4 Normal 1.0-2.5 [facility] Comment on above: Performed By: #### D DEBBI, CDP, CP, MG #### [facility] [address] [place], [place] [address]68183 Petroleum Inspector: Cholo Alicea MD Alkaline Phos 92 U/L Normal 35-104 [facility] Comment on above: Performed By: #### D DEBBI, CDP, CP, MG #### [address] [place], [place] 3540483 Petroleum Inspector: Cholo Alicea MD ALT [Catalytic activity/Vol] 11 U/L Normal 5-33 [facility] Comment on above: Performed By: #### D DEBBI, CDP, CP, MG #### [address] [place], [place] [address]83 Petroleum Inspector: Cholo Alicea MD Anion gap [Moles/Vol] 17 mmol/L Normal 9-17 [facility] Comment on above: Performed By: #### D DEBBI, CDP, CP, MG #### [address] [place], [place] [address]83 Petroleum Inspector: Cholo Alicea MD AST [Catalytic activity/Vol] 18 U/L Normal <32 [facility] Comment on above: Performed By: #### D DEBBI, CDP, CP, MG #### [facility] [address] [place] [address] [address], [place] 8[address]3583 Petroleum Inspector: Cholo Alicea MD Bilirubin [Mass/Vol] 0.6 mg/dL Normal 0.3-1.2 [facility] Comment on above: Performed By: #### D DEBBI, CDP, CP, MG #### [facility] [address] [place], [place] 488[address]683 Petroleum Inspector: Cholo Alicea MD BUN/CRE Ratio 10 Normal 9-20 [facility] Comment on above: Performed By: #### D DEBBI, CDP, CP, MG #### [facility] [address] [place] [address] Petroleum Inspector: Cholo Alicea MD Calcium [Mass/Vol] 10.2 mg/dL Normal 8.6-10.4 [facility] Comment on above: Performed By: #### D DEBBI, CDP, CP, MG #### [facility] [address] [place] [address] Petroleum Inspector: Cholo Alicea MD Chloride [Moles/Vol] 102 mmol/L Normal 98-107 [facility] Comment on above: Performed By: #### D DEBBI, CDP, CP, MG #### [facility] [address] [place] [address] Petroleum Inspector: Cholo Alicea MD CO2 [Moles/Vol] 20 mmol/L Normal 20-31 [facility] Comment on above: Performed By: #### D DEBBI, CDP, CP, MG #### [facility] [address] [place] [address] Petroleum Inspector: Cholo Alicea MD Creatinine [Mass/Vol] 0.9 mg/dL Normal 0.5-0.9 [facility] Comment on above: Performed By: #### D DEBBI, CDP, CP, MG #### [facility] [address] [place] [address] Petroleum Inspector: Cholo Alicea MD GFR/1.73 sq M.predicted among non-blacks MDRD (S/P/Bld) [Vol rate/Area] mL/min/{1.73_m2} Normal >60 [facility] Comment on above: Result Comment: These results [...] affects renal tubular secretion. Performed By: #### D DEBBI, CDP, CP, MG #### [facility] [address] [place], [place] 7440883 Petroleum Inspector: Cholo Alicea MD Glucose [Mass/Vol] 103 mg/dL High 70-99 [facility] Comment on above: Performed By: #### D DEBBI, CDP, CP, MG #### [facility] [address] [place], [place] 1808883 Petroleum Inspector: Cholo Alicea MD Potassium [Moles/Vol] 3.9 mmol/L Normal 3.7-5.3 [facility] Comment on above: Performed By: #### D DEBBI, CDP, CP, MG #### [facility] [address] [place] [address] [place] [address] Petroleum Inspector: Cholo Alicea MD Protein [Mass/Vol] 8.5 g/dL High 6.4-8.3 [facility] Comment on above: Performed By: #### D DEBBI, CDP, CP, MG #### [address] [place], [place] 7[address]83 Petroleum Inspector: Cholo Alicea MD Sodium [Moles/Vol] 139 mmol/L Normal 135-144 [facility] Comment on above: Performed By: #### D DEBBI, CDP, CP, MG #### [facility] [address] [place] [address] Petroleum Inspector: Cholo Alicea MD Urea nitrogen [Mass/Vol] 9 mg/dL Normal 6-20 [facility] Comment on above: Performed By: #### D DEBBI, CDP, CP, MG #### [facility] [address] [place], [place] 3632683 Petroleum Inspector: Cholo Alicea MD HCG, ,Urineon 01-10 Beta HCG ( test) Ql (U) Negative Normal NEG [facility] Comment on above: Result Comment: Spec imens with hCG levels near the threshold of the test (25 mIU/mL) may give a negative or indeterminate result. In such cases, another test should be performed with a new specimen in 48-72 hours. If early is suspected clinically in this setting, correlation with quantitative serum b-hCG level is suggested. [facility] has confirmed the use of plasma for this test. This has not been cleared or approved by the U.[place]. Food and Drug Administration. The FDA has determined that such clearance is not necessary. Performed By: #### D DEBBI, CDP, CP, MG #### [address] [place] [address] Petroleum Inspector: Cholo Alicea MD Magnesiumon 01-11-2024 Magnesium [Mass/Vol] 1.9 mg/dL Normal 1.6-2.6 [facility] Comment on above: Performed By: #### D DEBBI, CDP, CP, MG #### [address] [place] [address] Petroleum Inspector: Cholo Alicea MD TSH w/reflex to FT4on 2023 Thyroid Stim. Horm. 1.84 uIU/mL Normal 0.30-5.00 [facility] Comment on above: Performed By: #### T SHX #### [facility] [address] [place] [address] Petroleum Inspector: Cholo Alicea MD Urinalysis w/ Microon 2023 Bacteria TRACE Abnormal NONE [facility] Comment on above: Performed By: #### D DEBBI, CDP, CP, MG #### [address] [place] [address] Petroleum Inspector: Cholo Alicea MD Bilirubin, SemiQt,Ur Negative Normal NEG [facility] Comment on above: Performed By: #### D DEBBI, CDP, CP, MG #### [facility] [address] [place], [place] 912[address]83 Petroleum Inspector: Cholo Alicea MD Blood, Urine Negative Normal NEG [facility] Comment on above: Performed By: #### D DEBBI, CDP, CP, MG #### [facility] [address] [place] [address] [place], [place] 8135183 Petroleum Inspector: Cholo Alicea MD Clarity (U) Clear Normal CLEAR [facility] Comment on above: Performed By: #### D DEBBI, CDP, CP, MG #### [address] [place], [place] 6749683 Petroleum Inspector: Cholo Alicea MD Color (U) Yellow Normal YEL [facility] Comment on above: Performed By: #### D DEBBI, CDP, CP, MG #### [address] [place], [place] 7144583 Petroleum Inspector: Cholo Alicea MD Epithelial cells LM Ql (Urine sed) 10 TO 20 Normal 0-25 [facility] Comment on above: Performed By: #### D DEBBI, CDP, CP, MG #### [address] [place], [place] 2202683 Petroleum Inspector: Cholo Alicea MD Glucose Ql (U) Negative Normal NEG [facility] Comment on above: Performed By: #### D DEBBI, CDP, CP, MG #### [facility] [address] [place] [address] [place], [place] 7992183 Petroleum Inspector: Cholo Alicea MD Ketones Ql (U) Negative Normal NEG [facility] Comment on above: Performed By: #### D DEBBI, CDP, CP, MG #### [facility] [address] [place] [address] [place], [place] 8353583 Petroleum Inspector: Cholo Alicea MD Leukocyte esterase Test strip Ql (U) TRACE Abnormal NEG [facility] Comment on above: Performed By: #### D DEBBI, CDP, CP, MG #### [facility] [address] [place], [place] 9160283 Petroleum Inspector: Cholo Alicea MD Nitrite,Ur Negative Normal NEG [facility] Comment on above: Performed By: #### D DEBBI, CDP, CP, MG #### [facility] [address] [place] [address] [place] [address] Petroleum Inspector: Cholo Alicea MD PH,Ur 8.0 Normal 5.0-9.0 [facility] Comment on above: Performed By: #### D DEBBI, CDP, CP, MG #### [address] [place] [address] Petroleum Inspector: Cholo Alicea MD Protein Ql (U) Negative Normal NEG [facility] Comment on above: Performed By: #### D DEBBI, CDP, CP, MG #### [address] [place], [place] 0885283 Petroleum Inspector: Cholo Alicea MD Spec. [place],Ur 1.015 Normal 1.010-1.020 [facility] Comment on above: Performed By: #### D DEBBI, CDP, CP, MG #### [address] [place] [address] Petroleum Inspector: Cholo Alicea MD Urine RBC's None Normal 0-2 [facility] Comment on above: Performed By: #### D DEBBI, CDP, CP, MG #### [facility] [address] [place] [address] [place], [place] 1122783 Petroleum Inspector: Cholo Alicea MD Urine WBC's 5 TO 10 Normal 0-5 [facility] Comment on above: Performed By: #### D DEBBI, CDP, CP, MG #### [facility] [address] [place] [address] [place], [place] 8994983 Petroleum Inspector: Cholo Alicea MD Urobilinogen,Ur Normal Normal 0.0-1.0 [facility] Comment on above: Performed By: #### D DEBBITATA Serrato, CP, MG #### [facility] [address] [place] [address] [place] [address] Petroleum Inspector: Cholo Alicea MD URINE CULTUREon 01-10-2024 Bacteria identified Cx Nom (U) CULTURE RESULTS >100,000 ORGANISMS/mL ESCHERICHIA COLI [ S = SUSCEPTIBLE R = RESISTANT I = INTERMEDIATE S-DO = Susceptible-dose dependent NS = Non-suscceptible NO = No Interpretation ] Organism: ESCHERICHIA COLI Antibiotic Interpretation ALEJANDRO Status AMPICILLIN R >=32 F AMP/SULBACTAM I 16/8 F CEFAZOLIN S <=4 F CEFTRIAXONE S <=0.25 F CIPROFLOXACIN S <=0.25 F GENTAMICIN S <=1 F LEVOFLOXACIN S <=0.12 F NITROFURANTOIN S <=16 F PIPERACIL/TAZOBACTAM S <=4 F TOBRAMYCIN S <=1 F TRIMETH/SULFAMETHOXA ZOLE R >=16/304 F Resistant [facility] Comment on above: Performed By: #### 6 30-4 #### [facility] ([id number]) [address] [place] [address], [address] [place] [address] CBC with Diffon 01-07-2024 Abs. Basophil 0.06 k/uL Normal 0.00-0.20 [facility] Comment on above: Performed By: #### NABILA Bear CDP, TROPI #### [facility] [address] [place] [address] [place] [address] Petroleum Inspector: Cholo Alicea MD Abs.Imm.Granulocyte <0.03 Normal 0.00-0.30 [facility] Comment on above: Performed By: #### NABILA Bear CDP, TROPI #### [facility] [address] [place] [address] Petroleum Inspector: Cholo Alicea MD Abs.Neutrophil (Seg) 3.71 k/uL Normal 1.50-8.10 [facility] Comment on above: Performed By: #### C P, DIME, CDP, TROPI #### [address] [place], [facility] Petroleum Inspector: Cholo Alicea MD Basophils/100 WBC (Bld) 1 % Normal 0-2 [facility] Comment on above: Performed By: #### C P, DIME, CDP, TROPI #### [address] [place], [place] [address] Petroleum Inspector: Cholo Alicea MD Eosinophils (Bld) [#/Vol] 0.06 10*3/uL Normal 0.00-0.44 [facility] Comment on above: Performed By: #### C P, DIME, CDP, TROPI #### [address] [place], [facility] Petroleum Inspector: Cholo Alicea MD Eosinophils/100 WBC (Bld) 1 % Normal 1-4 [facility] Comment on above: Performed By: #### C P, DIME, CDP, TROPI #### [address] [place], [facility] Petroleum Inspector: Cholo Alicea MD Erythrocyte distribution width (RBC) [Ratio] 12.3 % Normal 11.8-14.4 [facility] Comment on above: Performed By: #### C P, DIME, CDP, TROPI #### [address] [place], [facility] Petroleum Inspector: Cholo Alicea MD Hematocrit (Bld) [Volume fraction] 40.3 % Normal 36.3-47.1 [facility] Comment on above: Performed By: #### C P, DIME, CDP, TROPI #### [address] [place], [place] 805[address]83 Petroleum Inspector: Cholo Alicea MD Hemoglobin (Bld) [Mass/Vol] 14.0 g/dL Normal 11.9-15.1 [facility] Comment on above: Performed By: #### C P, DIME, CDP, TROPI #### [address] [place], [facility] Petroleum Inspector: Cholo Alicea MD Immature granulocytes/100 WBC (Bld) 0 % Normal 0 [facility] Comment on above: Performed By: #### C P, DIME, CDP, TROPI #### [address] [place], [place] [address] Petroleum Inspector: Cholo Alicea MD Lymphocytes (Bld) [#/Vol] 3.59 10*3/uL Normal 1.10-3.70 [facility] Comment on above: Performed By: #### C P, DIME, CDP, TROPI #### [address] [place], [place] [address] Petroleum Inspector: Cholo Alicea MD Lymphocytes/100 WBC (Bld) 44 % High 24-43 [facility] Comment on above: Performed By: #### C P, DIME, CDP, TROPI #### [address] [place], [place] [address] Petroleum Inspector: Cholo Alicea MD MCH (RBC) [Entitic mass] 30.4 pg Normal 25.2-33.5 [facility] Comment on above: Performed By: #### C P, DIME, CDP, TROPI #### [address] [place], [facility] Petroleum Inspector: Cholo Alicea MD MCHC (RBC) [Mass/Vol] 34.7 g/dL Normal 28.4-34.8 [facility] Comment on above: Performed By: #### C P, DIME, CDP, TROPI #### [address] [place], [facility] Petroleum Inspector: Cholo Alicea MD MCV (RBC) [Entitic vol] 87.4 fL Normal 82.6-102.9 [facility] Comment on above: Performed By: #### C P, DIME, CDP, TROPI #### [facility] [address] [place], [place] 954[address]83 Petroleum Inspector: Cholo Alicea MD Monocytes (Bld) [#/Vol] 0.67 10*3/uL Normal 0.10-1.20 [facility] Comment on above: Performed By: #### C P, DIME, CDP, TROPI #### [facility] [address] [place] [address] Petroleum Inspector: Cholo Alicea MD Monocytes/100 WBC (Bld) 8 % Normal 3-12 [facility] Comment on above: Performed By: #### C P, DIME, CDP, TROPI #### [address] [place], [facility] Petroleum Inspector: Cholo Alicea MD Neutrophil (Seg) 46 % Normal 36-65 [facility] Comment on above: Performed By: #### C P, DIME, CDP, TROPI #### [address] [place], [place] 6439483 Petroleum Inspector: Cholo Alicea MD NRBC Automated 0.0 per 100 WBC Normal 0.0 [facility] Comment on above: Performed By: #### C P, DIME, CDP, TROPI #### [address] [place] [address] Petroleum Inspector: Cholo Alicea MD Platelet mean volume (Bld) [Entitic vol] 10.3 fL Normal 8.1-13.5 [facility] Comment on above: Performed By: #### C P, DIME, CDP, TROPI #### [facility] [address] [place], [place] 0440383 Petroleum Inspector: Cholo Alicea MD Platelets (Bld) [#/Vol] 292 10*3/uL Normal 138-453 [facility] Comment on above: Performed By: #### C P, DIME, CDP, TROPI #### [facility] [address] [place], [place] 68[address]83 Petroleum Inspector: Cholo Alicea MD RBC (d) [#/Vol] 4.61 10*6/uL Normal 3.95-5.11 [facility] Comment on above: Performed By: #### C P, DIME, CDP, TROPI #### [facility] [address] [place], [place] 6244683 Petroleum Inspector: Cholo Alicea MD WBC (Bld) [#/Vol] 8.1 10*3/uL Normal 3.5-11.3 [facility] Comment on above: Performed By: #### C P, DIME, CDP, TROPI #### [facility] [address] [place], [place] 4953283 Petroleum Inspector: Cholo Alicea MD Comp Metabolic Profon 2023 Albumin [Mass/Vol] 4.6 g/dL Normal 3.5-5.2 [facility] Comment on above: Performed By: #### C P, DIME, CDP, TROPI #### [address] [place], [place] 7019383 Petroleum Inspector: Cholo Alicea MD Albumin/Glob Ratio 1.6 Normal 1.0-2.5 [facility] Comment on above: Performed By: #### C P, DIME, CDP, TROPI #### [facility] [address] [place], [place] 4808483 Petroleum Inspector: Cholo Alicea MD Alkaline Phos 73 U/L Normal 35-104 [facility] Comment on above: Performed By: #### C P, DIME, CDP, TROPI #### [facility] [address] [place], [place] 430[address]83 Petroleum Inspector: Cholo Alicea MD ALT [Catalytic activity/Vol] 9 U/L Normal 5-33 [facility] Comment on above: Performed By: #### C P, DIME, CDP, TROPI #### [facility] [address] [place], [place] 2466183 Petroleum Inspector: Cholo Alicea MD Anion gap [Moles/Vol] 10 mmol/L Normal 9-17 [facility] Comment on above: Performed By: #### C P, DIME, CDP, TROPI #### [facility] [address] [place], [place] 4169683 Petroleum Inspector: Cholo Alicea MD AST [Catalytic activity/Vol] 14 U/L Normal <32 [facility] Comment on above: Performed By: #### C P, DIME, CDP, TROPI #### [facility] [address] [place], [place] 643[address]83 Petroleum Inspector: Cholo Alicea MD Bilirubin [Mass/Vol] 0.4 mg/dL Normal 0.3-1.2 [facility] Comment on above: Performed By: #### C P, DIME, CDP, TROPI #### [facility] [address] [place], [place] 3701683 Petroleum Inspector: Cholo Alicea MD BUN/CRE Ratio 24 High 9-20 [facility] Comment on above: Performed By: #### C P, DIME, CDP, TROPI #### [facility] [address] [place], [place] 2816583 Petroleum Inspector: Cholo Alicea MD Calcium [Mass/Vol] 8.6 mg/dL Normal 8.6-10.4 [facility] Comment on above: Performed By: #### C P, DIME, CDP, TROPI #### [facility] [address] [place], [place] 1101683 Petroleum Inspector: Cholo Alicea MD Chloride [Moles/Vol] 100 mmol/L Normal 98-107 [facility] Comment on above: Performed By: #### C P, DIME, CDP, TROPI #### [facility] [address] [place] [address] Petroleum Inspector: Cholo Alicea MD CO2 [Moles/Vol] 25 mmol/L Normal 20-31 [facility] Comment on above: Performed By: #### C P, DIME, CDP, TROPI #### [facility] [address] [place] [address] Petroleum Inspector: Cholo Alicea MD Creatinine [Mass/Vol] 0.8 mg/dL Normal 0.5-0.9 [facility] Comment on above: Performed By: #### C P, DIME, CDP, TROPI #### [facility] [address] [place] [address] Petroleum Inspector: Cholo Alicea MD GFR/1.73 sq M.predicted among non-blacks MDRD (S/P/Bld) [Vol rate/Area] mL/min/{1.73_m2} Normal >60 [facility] Comment on above: Result Comment: These results [...] renal tubular secretion. Performed By: #### C P, DIME, CDP, TROPI #### [facility] [address] [place] [address] Petroleum Inspector: Cholo Alicea MD Glucose [Mass/Vol] 94 mg/dL Normal 70-99 [facility] Comment on above: Performed By: #### C P, DIME, CDP, TROPI #### [facility] [address] [place] [address] Petroleum Inspector: Cholo Alicea MD Potassium [Moles/Vol] 3.8 mmol/L Normal 3.7-5.3 [facility] Comment on above: Performed By: #### C P, DIME, CDP, TROPI #### [facility] [address] [place], [place] 2466583 Petroleum Inspector: Cholo Alicea MD Protein [Mass/Vol] 7.4 g/dL Normal 6.4-8.3 [facility] Comment on above: Performed By: #### C P, DIME, CDP, TROPI #### [facility] [address] [place] [address] Petroleum Inspector: Cholo Alicea MD Sodium [Moles/Vol] 135 mmol/L Normal 135-144 [facility] Comment on above: Performed By: #### C P, DIME, CDP, TROPI #### [facility] [address] [place] [address] [place] [address] Petroleum Inspector: Cholo Alicea MD Urea nitrogen [Mass/Vol] 19 mg/dL Normal 6-20 [facility] Comment on above: Performed By: #### C P, DIME, CDP, TROPI #### [facility] [address] [place] [address] [place] [address] Petroleum Inspector: Cholo Alicea MD D-Dimer Teston 01-07-2024 D-Dimer Test 0.39 ug/mL FEU Normal 0.00-0.59 [facility] Comment on above: Result Comment: When combined with a low clinical probability, a D dimer value of <0.50 ug/mL FEU is considered negative for DVT and PE (negative predictive value of 98%, sensitivity of 97%). If this test is not being used to help rule out DVT and PE, then the following reference range should be utilized: 0.00 - 0.59 ug/mL FEU. The D-Dimer assay is intended for use as an aid in the diagnosis of venous thromboembolism (DVT and PE) and the results should be interpreted in conjunction with the patient's medical history, clinical presentation, and other findings. Elevated levels of D-dimer activity can be seen in any state of coagulation activation and is not recommended in patients with therapeutic dose anticoagulant therapy for >24 hours, fibrinolytic therapy within the previous 7 days, trauma or surgery within the previous 4 weeks, disseminated malignancies, aortic aneurysm, sepsis, severe infections, pneumonia, severe skin infections, liver cirrhosis, advanced age, coronary disease, diabetes, and . A very low percentage of patients with DVT may yield D-dimer results below the cutoff of 0.5 ug/mL FEU. This is known to be more prevalent in patients with distal DVT. Performed By: #### C P, DIME, CDP, TROPI #### [address] [place] [address] Petroleum Inspector: Cholo Alicea MD Drug Scr, Abuse, Uron 2023 Amphetamine(s),Ur Positive Abnormal NEG [facility] Comment on above: Result Comment: (Positive cutoff 1000 ng/mL) Performed By: #### D DEBBI, CDP, CP, MG #### [address] [place] [address] Petroleum Inspector: Cholo Alicea MD Barbiturate(s),Ur Negative Normal NEG [facility] Comment on above: Result Comment: (Positive cutoff 200 ng/mL) Performed By: #### D DEBBI, CDP, CP, MG #### [address] [place] [address] Petroleum Inspector: Cholo Alicea MD Benzodiazepine(s) Positive Abnormal NEG [facility] Comment on above: Result Comment: (Positive cutoff 200 ng/mL) Performed By: #### D DEBBI, CDP, CP, MG #### [address] [place] [address] Petroleum Inspector: Cholo Alicea MD Buprenorphrine, Ur Negative Normal NEG [facility] Comment on above: Result Comment: (Positive cutoff 5 ng/ml) Performed By: #### D DEBBI, CDP, CP, MG #### [facility] [address] [place], [place] 70[address]83 Petroleum Inspector: Cholo Alicea MD Cannabinoid(s),Ur Negative Normal [facility] Comment on above: Result Comment: (Positive cutoff 50 ng/mL) Performed By: #### D DEBBI, CDP, CP, MG #### [facility] [address] [place] [address] [place], [place] [address] Petroleum Inspector: Cholo Alicea MD Cocaine Metabolite Negative [facility] Comment on above: Result Comment: (Positive cutoff 300 ng/mL) Performed By: #### D DEBBI, CDP, CP, MG #### [address] [place], [facility] Petroleum Inspector: Cholo Alicea MD Fentanyl, Urine Negative [facility] Comment on above: Result Comment: (Positive cutoff 5 ng/ml) Performed By: #### D DEBBI, CDP, CP, MG #### [address] [place], [facility] Petroleum Inspector: Cholo Alicea MD Interpretive Info Assay provides medical screening only. The absence of expected drug(s) and/or Normal [facility] Comment on above: Result Comment: meta bolite(s) may indicate diluted or adulterated urine, limitations of testing or timing of collection. Testing for legal purposes should be confirmed by another method. To request confirmation of test result, please call the lab within 7 days of sample submission. Performed By: #### D DEBBI, CDP, CP, MG #### [address] [place], [facility] Petroleum Inspector: Cholo Alicea MD Methadone Ql (U) Negative Normal [facility] Comment on above: Result Comment: (Positive cutoff 300 ng/mL) Performed By: #### D DEBBI, CDP, CP, MG #### [address] [place] [address] Petroleum Inspector: Cholo Alicea MD Opiate(s), Ur Negative Normal NEG [facility] Comment on above: Result Comment: (Positive cutoff 300 ng/mL) Performed By: #### D DEBBI, CDP, CP, MG #### [facility] [address] [place] [address] [place], [place] [id number] Petroleum Inspector: Cholo Alicea MD Oxycodone, Urine Negative Normal NEG [facility] Comment on above: Result Comment: (Positive cutoff 100 ng/mL) Performed By: #### D DEBBI, CDP, CP, MG #### [address] [place], [place] [id number] Petroleum Inspector: Cholo Alicea MD Phencyclidine, Ur Negative Normal NEG [facility] Comment on above: Result Comment: (Positive cutoff 25 ng/mL) Performed By: #### D DEBBI, CDP, CP, MG #### [address] [place], [place] [id number] Petroleum Inspector: Cholo Alicea MD Ethanol Alcoholon 1 Ethanol [Mass/Vol] mg/dL Normal <10 [facility] Comment on above: Performed By: #### D DEBBI, CDP, CP, MG #### [address] [place], [facility] Petroleum Inspector: Cholo Alicea MD Ethanol percent <0.010 Normal <0.010 [facility] Comment on above: Performed By: #### D DEBBI, CDP, CP, MG #### [facility] [address] [place] [address] [place] [address] Petroleum Inspector: Cholo Alicea MD HCG, ,Urineon 01-06 Beta HCG ( test) Ql (U) Negative Normal NEG [facility] Comment on above: Result Comment: Spec imens with hCG levels near the threshold of the test (25 mIU/mL) may give a negative or indeterminate result. In such cases, another test should be performed with a new specimen in 48-72 hours. If early is suspected clinically in this setting, correlation with quantitative serum b-hCG level is suggested. [facility] has confirmed the use of plasma for this test. This has not been cleared or approved by the U.S. Food and Drug Administration. The FDA has determined that such clearance is not necessary. Performed By: #### D DEBBI, CDP, CP, MG #### [facility] [address] [place] [address] Petroleum Inspector: Cholo Alicea MD Troponinon 01-07-2024 Troponin, High Sens <6 Normal 0-14 [facility] Comment on above: Result Comment: High Sensitivity Troponin values cannot be compared with other Troponin methodologies. Performed By: #### C P, DIME, CDP, TROPI #### [address] [place], [place] 6363083 Petroleum Inspector: Cholo Alicea MD UA w/Reflex Cultureon 2023 Bilirubin, SemiQt,Ur Negative Normal NEG [facility] Comment on above: Performed By: #### D DEBBI, CDP, CP, MG #### [address] [place], [place] [id number] Petroleum Inspector: Cholo Alicea MD Blood, Urine Negative Normal NEG [facility] Comment on above: Performed By: #### D DEBBI, CDP, CP, MG #### [facility] [address] [place] [address] Dr[place], [place] 7343683 Petroleum Inspector: Cholo Alicea MD Clarity (U) Clear Normal CLEAR [facility] Comment on above: Performed By: #### D DEBBI, CDP, CP, MG #### [facility] [address] [place] [address] Dr[place], [facility] Petroleum Inspector: Cholo Alicea MD Color (U) Yellow Normal YEL [facility] Comment on above: Performed By: #### D DEBBI, CDP, CP, MG #### [facility] [address] [place] [address] [place] [address] Petroleum Inspector: Cholo Alicea MD Glucose Ql (U) Negative Normal NEG [facility] Comment on above: Performed By: #### D DEBBI, CDP, CP, MG #### [facility] [address] [place] [address] Dr[place], [place] 7165983 Petroleum Inspector: Cholo Alicea MD Ketones Ql (U) Negative Normal NEG [facility] Comment on above: Performed By: #### D DEBBI, CDP, CP, MG #### [address] [place] [address] Petroleum Inspector: Cholo Alicea MD Leukocyte esterase Test strip Ql (U) Negative Normal NEG [facility] Comment on above: Performed By: #### D DEBBI, CDP, CP, MG #### [address] [place] [address] Petroleum Inspector: Cholo Alicea MD Nitrite,Ur Negative Normal [facility] Comment on above: Performed By: #### D DEBBI, CDP, CP, MG #### [address] [place] [address] Petroleum Inspector: Cholo Alicea MD PH,Ur 6.0 Normal 5.0-9.0 [facility] Comment on above: Performed By: #### D DEBBI, CDP, CP, MG #### [facility] [address] [place] [address] [place] [address] Petroleum Inspector: Cholo Alicea MD Protein Ql (U) Negative Normal NEG [facility] Comment on above: Performed By: #### D DEBBI, CDP, CP, MG #### [address] [place], [place] 5823683 Petroleum Inspector: Cholo Alicea MD Spec. [place],Ur >1.030 High 1.010-1.020 [facility] Comment on above: Performed By: #### D DEBBI, CDP, CP, MG #### [facility] [address] [place] [address] Dr[place], [facility] Petroleum Inspector: Cholo Alicea MD Urobilinogen,Ur Normal Normal 0.0-1.0 [facility] Comment on above: Performed By: #### D DEBBI, CDP, CP, MG #### [facility] [address] [place] [address] Dr[place], [facility] Petroleum Inspector: Cholo Alicea MD Urinalysis,Microon 4 Bacteria 3+ Abnormal NONE [facility] Comment on above: Performed By: #### D DEBBI, CDP, CP, MG #### [address] [place], [facility] Petroleum Inspector: Cholo Alicea MD Epithelial cells LM Ql (Urine sed) 5 TO 10 Normal 0-25 [facility] Comment on above: Performed By: #### D DEBBI, CDP, CP, MG #### [address] [place], [facility] Petroleum Inspector: Cholo Alicea MD Urine RBC's 0 TO 2 Normal 0-2 [facility] Comment on above: Performed By: #### D DEBBI, CDP, CP, MG #### [facility] [address] [place] [address] Dr[place], [facility] Petroleum Inspector: Cholo Alicea MD Urine WBC's 5 TO 10 Normal 0-5 [facility] Comment on above: Performed By: #### D DEBBI, CDP, CP, MG #### [address] [place] [address] Petroleum Inspector: Cholo Alicea MD Venous Blood Gaseson 024 Servando Test NO Normal [facility] Comment on above: Performed By: #### D DEBBI, CDP, CP, MG #### [facility] [address] [place] [address] [place], [place] [id number] Petroleum Inspector: Cholo Alicea MD Body Temp. 37.0 [facility] Comment on above: Performed By: #### D DEBBI, CDP, CP, MG #### [facility] [address] [place], [place] 7971283 Petroleum Inspector: Cholo Alicea MD FIO2 21 [facility] Comment on above: Performed By: #### D DEBBI, CDP, CP, MG #### [facility] [address] [place], [place] 3804083 Petroleum Inspector: Cholo Alicea MD HCO3 (Bld) [Moles/Vol] 24.9 mmol/L Normal 24.0-30.0 [facility] Comment on above: Performed By: #### D DEBBI, CDP, CP, MG #### [facility] [address] [place] [address] Dr[place], [place] 1327483 Petroleum Inspector: Cholo Alicea MD Negative Base Excess 0.2 mmol/L Normal 0.0-2.0 [facility] Comment on above: Performed By: #### D DEBBI, CDP, CP, MG #### [address] [place], [place] 8543383 Petroleum Inspector: Cholo Alicea MD O2 Device/Flow/% ROOM AIR Normal [facility] Comment on above: Performed By: #### D DEBBI, CDP, CP, MG #### [facility] [address] [place] [address] Dr[place], [place] 1932583 Petroleum Inspector: Cholo Alicea MD Oxygen saturation in Blood 77.3 % Normal 60.0-85.0 [facility] Comment on above: Performed By: #### D DEBBI, CDP, CP, MG #### [facility] [address] [place] [address] Dr[place], [place] 9744583 Petroleum Inspector: Cholo Alicea MD pCO2 42.3 mm Hg Normal 39-55 [facility] Comment on above: Performed By: #### D DEBBI, CDP, CP, MG #### [address] [place], [place] 1554483 Petroleum Inspector: Cholo Alicea MD Pco2 Adj'd for Temp. 42.3 mmHg Normal 39.0-55.0 [facility] Comment on above: Performed By: #### D DEBBI, CDP, CP, MG #### [address] [place], [place] 2196283 Petroleum Inspector: Cholo Alicea MD pH (Bld) 7.388 [pH] Normal 7.32-7.42 [facility] Comment on above: Performed By: #### D DEBBI, CDP, CP, MG #### [address] [place], [place] 27[address]883 Petroleum Inspector: Cholo Alicea MD pH Adjst'd for Temp. 7.388 Normal 7.320-7.420 [facility] Comment on above: Performed By: #### D DEBBI, CDP, CP, MG #### [address] [place], [place] 4571383 Petroleum Inspector: Cholo Alicea MD pO2 42.2 mm Hg Normal 30.0-50.0 [facility] Comment on above: Performed By: #### D DEBBI, CDP, CP, MG #### [address] [place], [place] 0239083 Petroleum Inspector: Cholo Alicea MD pO2 Adj'd for Temp. 42.2 mmHg Normal 30.0-50.0 [facility] Comment on above: Performed By: #### D DEBBI, CDP, CP, MG #### [address] [place] [address] Petroleum Inspector: Cholo Alicea MD XR CHEST PORTABLEon 01-07-20 24 XR CHEST PORTABLE EXAMINATION: ONE XRAY VIEW OF THE CHEST 01/07/2024 10:00 pm COMPARISON: None. HISTORY: ORDERING SYSTEM PROVIDED HISTORY: h/o asthma TECHNOLOGIST PROVIDED HISTORY: h/o asthma FINDINGS: Lungs are clear. There is no pleural effusion or pneumothorax. Heart is normal in size. Pulmonary vascular markings are normal. No acute osseous abnormalities are seen. IMPRESSION: No acute cardiopulmonary process. Interpreted by: Jonnie So MD Signed by: Jonnie So MD 01/07/24 Final result Normal [facility] Basic Metabolic Profon 11-19 Anion gap [Moles/Vol] 9 mmol/L Normal 9-17 [facility] Comment on above: Performed By: #### D DEBBI, CDP, CP, MG #### [facility] [address] [place] [address] [place] [address] Petroleum Inspector: Cholo Alicea MD BUN/CRE Ratio 11 Normal 9-20 [facility] Comment on above: Performed By: #### D DEBBI, CDP, CP, MG #### [address] [place] [address] Petroleum Inspector: Cholo Alicea MD Calcium [Mass/Vol] 9.1 mg/dL Normal 8.6-10.4 [facility] Comment on above: Performed By: #### D DEBBI, CDP, CP, MG #### [address] [place] [address] Petroleum Inspector: Cholo Alicea MD Chloride [Moles/Vol] 103 mmol/L Normal 98-107 [facility] Comment on above: Performed By: #### D DEBBI, CDP, CP, MG #### [facility] [address] [place] [address] [place] [address] Petroleum Inspector: Cholo Alicea MD CO2 [Moles/Vol] 25 mmol/L Normal 20-31 [facility] Comment on above: Performed By: #### D DEBBI, CDP, CP, MG #### [facility] [address] [place] [address] [place] [address] Petroleum Inspector: Cholo Alicea MD Creatinine [Mass/Vol] 0.8 mg/dL Normal 0.5-0.9 [facility] Comment on above: Performed By: #### D DEBBI, CDP, CP, MG #### [facility] [address] [place] [address] [place] [address] Petroleum Inspector: Cholo Alicea MD GFR/1.73 sq M.predicted among non-blacks MDRD (S/P/Bld) [Vol rate/Area] mL/min/{1.73_m2} Normal >60 [facility] Comment on above: Result Comment: These results [...] affects renal tubular secretion. Performed By: #### D DEBBI, CDP, CP, MG #### [address] [place] [address] Petroleum Inspector: Cholo Alicea MD Glucose [Mass/Vol] 87 mg/dL Normal 70-99 [facility] Comment on above: Performed By: #### D DEBBI, CDP, CP, MG #### [address] [place] [address] Petroleum Inspector: Cholo Alicea MD Potassium [Moles/Vol] 3.8 mmol/L Normal 3.7-5.3 [facility] Comment on above: Performed By: #### D DEBBI, CDP, CP, MG #### [address] [place] [address] Petroleum Inspector: Cholo Alicea MD Sodium [Moles/Vol] 137 mmol/L Normal 135-144 [facility] Comment on above: Performed By: #### D DEBBI, CDP, CP, MG #### [facility] [address] [place], [facility] Petroleum Inspector: Cholo Alicea MD Urea nitrogen [Mass/Vol] 9 mg/dL Normal 6-20 [facility] Comment on above: Performed By: #### D DEBBI, CDP, CP, MG #### [facility] [address] [place], [facility] Petroleum Inspector: Cholo Alicea MD CBC with Diffon 11-20-2023 Abs. Basophil 0.05 k/uL Normal 0.00-0.20 [facility] Comment on above: Performed By: #### D DEBBI, CDP, CP, MG #### [address] [place] [address] Petroleum Inspector: Cholo Alicea MD Abs.Imm.Granulocyte <0.03 Normal 0.00-0.30 [facility] Comment on above: Performed By: #### D DEBBI, CDP, CP, MG #### [address] [place], [place] [address] Petroleum Inspector: Cholo Alicea MD Abs.Neutrophil (Seg) 4.60 k/uL Normal 1.50-8.10 [facility] Comment on above: Performed By: #### D DEBBI, CDP, CP, MG #### [address] [place], [place] [address] Petroleum Inspector: Cholo Alicea MD Basophils/100 WBC (Bld) 1 % Normal 0-2 [facility] Comment on above: Performed By: #### D DEBBI, CDP, CP, MG #### [address] [place], [facility] Petroleum Inspector: Cholo Alicea MD Eosinophils (Bld) [#/Vol] 0.07 10*3/uL Normal 0.00-0.44 [facility] Comment on above: Performed By: #### D EDBBI, CDP, CP, MG #### [facility] [address] [place] [address] [place], [place] 3009683 Petroleum Inspector: Cholo Alicea MD Eosinophils/100 WBC (Bld) 1 % Normal 1-4 [facility] Comment on above: Performed By: #### D DEBBI, CDP, CP, MG #### [address] [place], [facility] Petroleum Inspector: Cholo Alicea MD Erythrocyte distribution width (RBC) [Ratio] 12.3 % Normal 11.8-14.4 [facility] Comment on above: Performed By: #### D DEBBI, CDP, CP, MG #### [address] [place] [id number] Petroleum Inspector: Cholo Alicea MD Hematocrit (Bld) [Volume fraction] 39.8 % Normal 36.3-47.1 [facility] Comment on above: Performed By: #### D DEBBI, CDP, CP, MG #### [address] [place], [facility] Petroleum Inspector: Cholo Alicea MD Hemoglobin (Bld) [Mass/Vol] 13.5 g/dL Normal 11.9-15.1 [facility] Comment on above: Performed By: #### D DEBBI, CDP, CP, MG #### [address] [place], [facility] Petroleum Inspector: Cholo Alicea MD Immature granulocytes/100 WBC (Bld) 0 % Normal 0 [facility] Comment on above: Performed By: #### D DEBBI, CDP, CP, MG #### [address] [place], [facility] Petroleum Inspector: Cholo Alicea MD Lymphocytes (Bld) [#/Vol] 2.81 10*3/uL Normal 1.10-3.70 [facility] Comment on above: Performed By: #### D DEBBI, CDP, CP, MG #### [facility] [address] [place], [facility] Petroleum Inspector: Cholo Alicea MD Lymphocytes/100 WBC (Bld) 34 % Normal 24-43 [facility] Comment on above: Performed By: #### D DEBBI, CDP, CP, MG #### [address] [place], [facility] Petroleum Inspector: Cholo Alicea MD MCH (RBC) [Entitic mass] 29.9 pg Normal 25.2-33.5 [facility] Comment on above: Performed By: #### D DEBBI, CDP, CP, MG #### [address] [place], [facility] ( Petroleum Inspector: Cholo Alicea MD MCHC (RBC) [Mass/Vol] 33.9 g/dL Normal 28.4-34.8 [facility] Comment on above: Performed By: #### D DEBBI, CDP, CP, MG #### [address] [place], [facility] Petroleum Inspector: Cholo Alicea MD MCV (RBC) [Entitic vol] 88.1 fL Normal 82.6-102.9 [facility] Comment on above: Performed By: #### D DEBBI, CDP, CP, MG #### [address] [place], [facility] Petroleum Inspector: Cholo Alicea MD Monocytes (Bld) [#/Vol] 0.62 10*3/uL Normal 0.10-1.20 [facility] Comment on above: Performed By: #### D DEBBI, CDP, CP, MG #### [address] [place], [place] 1155283 Petroleum Inspector: Cholo Alicea MD Monocytes/100 WBC (Bld) 8 % Normal 3-12 [facility] Comment on above: Performed By: #### D DEBBI, CDP, CP, MG #### [facility] [address] [place], [place] 760[address]83 Petroleum Inspector: Cholo Alicea MD Neutrophil (Seg) 56 % Normal 36-65 [facility] Comment on above: Performed By: #### D DEBBI, CDP, CP, MG #### [address] [place], [facility] Petroleum Inspector: Cholo Alicea MD NRBC Automated 0.0 per 100 WBC Normal 0.0 [facility] Comment on above: Performed By: #### D DEBBI, CDP, CP, MG #### [address] [place], [facility] Petroleum Inspector: Cholo Alicea MD Platelet mean volume (Bld) [Entitic vol] 10.2 fL Normal 8.1-13.5 [facility] Comment on above: Performed By: #### D DEBBI, CDP, CP, MG #### [address] [place], [facility] Petroleum Inspector: Cholo Alicea MD Platelets (Bld) [#/Vol] 302 10*3/uL Normal 138-453 [facility] Comment on above: Performed By: #### D DEBBI, CDP, CP, MG #### [address] [place], [facility] Petroleum Inspector: Cholo Alicea MD RBC (Bld) [#/Vol] 4.52 10*6/uL Normal 3.95-5.11 [facility] Comment on above: Performed By: #### D DEBBI, CDP, CP, MG #### [address] [place] [address] Petroleum Inspector: Cholo Alicea MD WBC (Bld) [#/Vol] 8.2 10*3/uL Normal 3.5-11.3 [facility] Comment on above: Performed By: #### D DEBBI, TATA, CP, MG #### [facility] [address] [place] [address] Petroleum Inspector: Cholo Alicea MD CT CHEST PULMONARY EMBOLISM W CONTRASTon 11-20-2023 CT CHEST PULMONARY EMBOLISM W CONTRAST EXAMINATION: CTA OF THE CHEST 11/20/2023 9:13 pm TECHNIQUE: CTA of the chest was performed after the administration of intravenous contrast. Multiplanar reformatted images are provided for review. MIP images are provided for review. Automated exposure control, iterative reconstruction, and/or weight based adjustment of the mA/kV was utilized to reduce the radiation dose to as low as reasonably achievable. COMPARISON: None. HISTORY: ORDERING SYSTEM PROVIDED HISTORY: left sided chest pain and shortness of breath TECHNOLOGIST PROVIDED HISTORY: left sided chest pain and shortness of breath Additional Contrast?->1 FINDINGS: Pulmonary Arteries: Pulmonary arteries are adequately opacified for evaluation. No evidence of intraluminal filling defect to suggest pulmonary embolism. Main pulmonary artery is normal in caliber. Mediastinum: No evidence of mediastinal lymphadenopathy. The heart and pericardium demonstrate no acute abnormality. There is no acute abnormality of the thoracic aorta. Lungs/pleura: The lungs are without acute process. No focal consolidation or pulmonary edema. No evidence of pleural effusion or pneumothorax. Upper Abdomen: Limited images of the upper abdomen are unremarkable. Soft Tissues/Bones: No acute bone or soft tissue abnormality. IMPRESSION: No evidence of pulmonary embolism or acute pulmonary abnormality. Interpreted by: Costa Block MD Signed by: Costa Block MD 11/20/23 Final result Normal [facility] Troponinon 11-20-2023 Troponin, High Sens <6 Normal 0-14 [facility] Comment on above: Result Comment: High Sensitivity Troponin values cannot be compared with other Troponin methodologies. Performed By: #### D DEBBI, TATA, CP, MG #### [facility] [address] [place] [address] Petroleum Inspector: Cholo Alicea MD CBC AND AUTO DIFFon 11-19-19 ABSOLUTE BASOPHIL 0.1 X10E9/L Normal 0.0-0.2 [facility] Comment on above: Performed By: #### C OSWALDO, CMP, 94535-6, 54032-6 #### [facility] ([id number]) [address] [place] [address] ABSOLUTE NEUTROPHIL 4.6 X10E9/L Normal 1.5-6.6 [facility] Comment on above: Performed By: #### C OSWALDO, CMP, 99352-1, 13565-2 #### [facility] ([id number]) [address] [place] [address] Basophils/100 WBC (Bld) 0.8 % Normal [facility] Comment on above: Performed By: #### C OSWALDO, CMP, 12930-5, 55068-0 #### [facility] ([id number]) [address] [place] [address] Eosinophils (Bld) [#/Vol] 0.1 10*3/uL Normal 0.0-0.4 [facility] Comment on above: Performed By: #### C OSWALDO, CMP, 08051-9, 99886-6 #### [facility] ([id number]) [address] [place] [address] Eosinophils/100 WBC (Bld) 1.3 % Normal [facility] Comment on above: Performed By: #### C OSWALDO, CMP, 97352-2, 67383-8 #### [facility] ([id number]) [address] [place] [address] Erythrocyte distribution width (RBC) [Ratio] 13.2 % Normal 11.5-15.0 [facility] Comment on above: Performed By: #### C OSWALDO, CMP, 12818-4, 60963-6 #### [facility] ([id number]) [address] [place] [address] Hematocrit (Bld) [Volume fraction] 38.7 % Normal 35-47 [facility] Comment on above: Performed By: #### C OSWALDO, CMP, 84208-5, 77951-7 #### [facility] ([id number]) [address] [place] [address] Hemoglobin (Bld) [Mass/Vol] 13.3 g/dL Normal 11.7-15.5 [facility] Comment on above: Performed By: #### C OSWALDO, CMP, 50265-1, 11013-9 #### [facility] ([id number]) [address] [place] [address] Lymphocytes (Bld) [#/Vol] 2.6 10*3/uL Normal 1.0-3.5 [facility] Comment on above: Performed By: #### Franco CHACON, CMP, 93847-9, 22715-0 #### [facility] ([id number]) [address] [place] [address] Lymphocytes/100 WBC (Bld) 33.3 % Normal [facility] Comment on above: Performed By: #### C OSWALDO, CMP, 70476-5, 89056-9 #### [facility] ([id number]) [address] [place] [address] MCH (RBC) [Entitic mass] 30.1 pg Normal 27-34 [facility] Comment on above: Performed By: #### C OSWALDO, CMP, 34734-1, 07913-3 #### [facility] ([id number]) [address] [place] [address] 78461 MCHC (RBC) [Mass/Vol] 34.4 g/dL Normal 32-36 [facility] Comment on above: Performed By: #### C OSWALDO, CMP, 17968-5, 25757-0 #### [facility] ([id number]) [address] [place] [address] 66843 MCV (RBC) [Entitic vol] 88 fL Normal 80-[address] [facility] Comment on above: Performed By: #### Franco CHACON, CMP, 71736-7, 80750-2 #### [facility] ([id number]) [address] [place] [address] 94370 Monocytes (Bld) [#/Vol] 0.6 10*3/uL Normal 0-0.9 [facility] Comment on above: Performed By: #### Franco CHACON, CMP, 43076-5, 07618-8 #### [facility] ([id number]) [address] [place] [address] 94472 Monocytes/100 WBC (Bld) 7.1 % Normal [facility] Comment on above: Performed By: #### Franco CHACON, CMP, 63355-6, 93598-5 #### [facility] ([id number]) [address] [place] [address] 93217 Neutrophils/100 WBC (Bld) 57.5 % Normal [facility] Comment on above: Performed By: #### Franco CHACON, CMP, 58847-9, 81935-3 #### [facility] ([id number]) [address] [place] [address] 99028 Platelet mean volume (Bld) [Entitic vol] 8.2 fL Normal 7-12 [facility] Comment on above: Performed By: #### Franco CHACON, CMP, 68887-7, 75761-4 #### [facility] ([id number]) [address] [place] [address] 78678 Platelets (Bld) [#/Vol] 306 10*3/uL Normal 150-450 [facility] Comment on above: Performed By: #### Franco CHACON, CMP, 44355-1, 13796-1 #### [facility] ([id number]) [address] [place] [address] 05044 RBC COUNT 4.42 X10E12/L Normal 3.80-5.20 [facility] Comment on above: Performed By: #### C BCA, CMP, 68704-4, 95847-3 #### [facility] ([id number]) [address] [place] [address] 12908 WBC (Bld) [#/Vol] 7.9 10*3/uL Normal 4.0-11.0 [facility] Comment on above: Performed By: #### C BCA, CMP, 46306-2, 80267-7 #### [facility] ([id number]) [address] [place] [address] 23537 COMPREHENSIVE METABOLIC PANE Haile 11-19-2023 Albumin [Mass/Vol] 4.5 g/dL Normal 3.2-5.3 [facility] Comment on above: Performed By: #### C BCA, CMP, 94008-3, 10477-0 #### [facility] ([id number]) [address] [place] [address] 36675 ALP [Catalytic activity/Vol] 70 U/L Normal 39-130 [facility] Comment on above: Performed By: #### C BCA, CMP, 46685-5, 76324-2 #### [facility] ([id number]) [address] [place] [address] 45454 ALT [Catalytic activity/Vol] 15 U/L Normal 0-31 [facility] Comment on above: Performed By: #### C BCA, CMP, 99353-9, 50088-2 #### [facility] ([id number]) [address] [place] [address] 65716 Anion gap [Moles/Vol] 3 mmol/L Low 5-15 [facility] Comment on above: Performed By: #### C BCA, CMP, 84287-6, 30622-3 #### [facility] ([id number]) [address] [place] [address] 96685 AST [Catalytic activity/Vol] 19 U/L Normal 0-41 [facility] Comment on above: Performed By: #### C BCA, CMP, 69965-3, 19351-2 #### [facility] ([id number]) [address] [place] [address] 93062 Bilirubin [Mass/Vol] 0.5 mg/dL Normal 0.3-1.2 [facility] Comment on above: Performed By: #### C BCA, CMP, 19809-3, 69172-5 #### [facility] ([id number]) [address] [place] [address] 92954 Calcium [Mass/Vol] 8.6 mg/dL Normal 8.5-10.5 [facility] Comment on above: Performed By: #### C BCA, CMP, 67548-1, 25395-6 #### [facility] ([id number]) [address] [place] [address] 05441 Chloride [Moles/Vol] 107 mmol/L Normal 98-109 [facility] Comment on above: Performed By: #### C BCA, CMP, 92615-5, 83159-6 #### [facility] ([id number]) [address] [place] [address] 75331 CO2 [Moles/Vol] 27 mmol/L Normal 22-32 [facility] Comment on above: Performed By: #### C BCA, CMP, 50687-1, 15095-5 #### [facility] ([id number]) [address] [place] [address] 10265 Creatinine [Mass/Vol] 0.98 mg/dL Normal 0.40-1.00 [facility] Comment on above: Result Comment: METH OD TRACEABLE TO IDMS STANDARD Performed By: #### C BCA, CMP, 53265-1, 66959-5 #### [facility] ([id number]) [address] [place] [address] 94062 GFR/1.73 sq M.predicted among non-blacks MDRD (S/P/Bld) [Vol rate/Area] 82 mL/min/{1.73_m2} Normal >59 [facility] Comment on above: Result Comment: Reported eGFR is based on the CKD-EPI 2020 equation that does not use a race coefficient. Performed By: #### C PIPO CHACON, 98988-5, 25757-0 #### [facility] ([id number]) [address] [place] [address] 85085 Glucose [Mass/Vol] 81 mg/dL Normal 65-99 [facility] Comment on above: Performed By: #### C PIPO CHACON, 47526-9, 52173-4 #### [facility] ([id number]) [address] [place] [address] 48488 Potassium [Moles/Vol] 3.5 mmol/L Normal 3.5-5.0 [facility] Comment on above: Performed By: #### C OSWALDO [facility], 41533-2, 85985-5 #### [facility] ([id number]) [address] [place] [address] 92142 Protein [Mass/Vol] 7.8 g/dL Normal 6.0-8.0 [facility] Comment on above: Performed By: #### C OSWALDO, CMP, 03326-7, 41835-2 #### [facility] ([id number]) [address] [place] [address] 15594 Sodium [Moles/Vol] 137 mmol/L Normal 134-146 [facility] Comment on above: Performed By: #### C OSWALDO CMP, 51865-0, 13524-2 #### [facility] ([id number]) [address] [place] [address] 31952 Urea nitrogen [Mass/Vol] 15 mg/dL Normal 5-23 [facility] Comment on above: Performed By: #### C PIPO CHACON, 33192-4, 73400-7 #### [facility] ([id number]) [address] [place] [address] 62790 Fibrin D-dimer DDU (PPP) [Ma ss/Vol]on 11-19-2023 D DIMER <150 Normal <255 [facility] Comment on above: Result Comment: Results <255 ng/mL DDU: The presence of a VTE can safely be excluded with a negative D-Dimer result and Wells score. A negative result doesn't exclude the possibility of DIC. The test be repeated along with other diagnostic tests if the patient's symptoms persist or worsen. [email or web address] Performed By: #### C PIPO CHACON, 01684-7, 56598-1 #### [facility] ([id number]) [address] [place] [address] 86087 HCG ( test) Ql (U)o n 11-19-2023 Beta HCG ( test) Ql (U) Negative Normal NEG [facility] Comment on above: Performed By: #### 2 106-3 #### [facility] ([id number]) [address] [place] [address] 22786 Troponin I.cardiac High sens itivity method [Mass/Vol]on 11-19-2023 1 HOUR TROP I, HIGH SENSITIVITY <2 Normal <16 [facility] Comment on above: Performed By: #### 8 9579-7 #### [facility] ([id number]) [address] [place] [address] 18483 TROPONIN I, HIGH SENSITIVITY <2 Normal <16 [facility] Comment on above: Performed By: #### C PIPO CHACON, 52180-6, 48103-9 #### [facility] ([id number]) [address] [place] [address] [place] [address] URN MACROSCOPIC NURon 2023 BILIRUBIN NADYA Negative Normal NEG [facility] Comment on above: Performed By: #### N UM #### [facility] ([id number]) [address] [place] [address] [place] [address] BLOOD/HGB NADYA Negative Normal NEG [facility] Comment on above: Performed By: #### N UM #### [facility] ([id number]) [address] [place] [address] [place] [address] GLUCOSE NADYA Negative Normal NEG [facility] Comment on above: Performed By: #### N UM #### [facility] ([id number]) [address] [place] [address] [place] [address] KETONES NADYA Negative Normal NEG [facility] Comment on above: Performed By: #### N UM #### [facility] ([id number]) [address] [place] [address] [place] [address] LEUKOCYTE ESTERASE NADYA Negative Normal NEG [facility] Comment on above: Performed By: #### N UM #### [facility] ([id number]) [address] [place] [address], [place] [address] NITRITE NADYA Negative Normal NEG [facility] Comment on above: Performed By: #### N UM #### [facility] ([id number]) [address] [place] [address] [place] [address] PH NADYA 8.5 Normal 5.0-8.5 [facility] Comment on above: Performed By: #### N UM #### [facility] ([id number]) [address] [place] [address] [place] [address] PROTEIN NADYA Negative Normal NEG [facility] Comment on above: Performed By: #### N UM #### [facility] ([id number]) [address] [place] [address] SPECIFIC GRAVITY NADYA 1.015 Normal 1.003-1.035 [facility] Comment on above: Performed By: #### N UM #### [facility] ([id number]) [address] [place] [address] UROBILINOGEN NADYA 1.0 eu/dL Normal <1.1 [facility] Comment on above: Performed By: #### N UM #### [facility] ([id number]) [address] [place] [address] 35527 XR CHEST 2 VWSon 11-19-2023 XR CHEST 2 VWS XR CHEST 2 VWS XR CHEST 2 VWS HISTORY: Cough, chest pain, chest discomfort, shortness of breath COMPARISON: Chest radiographs 08/28/2020 FINDINGS: PA and lateral upright films obtained. The cardiomediastinal silhouette is within normal limits. No pleural effusion. No consolidation. IMPRESSION: No radiographic evidence of acute cardiopulmonary process. Approved by Resident: Anatoly Reynolds DO on 11/19/2023 5:04 PM I, Prem Martinez MD have personally reviewed the image(s) and agree with and/or edited the report Finalized by Prem Martinez MD on 11/19/2023 5:27 PM Normal [facility] CBC with Diffon 11-17-2023 Abs. Basophil 0.07 k/uL Normal 0.00-0.20 [facility] Comment on above: Performed By: #### D DEBBI, CDP, CP, MG #### [facility] [address] [place] [address] Petroleum Inspector: Cholo Alicea MD Abs.Imm.Granulocyte <0.03 Normal 0.00-0.30 [facility] Comment on above: Performed By: #### D DEBBI, CDP, CP, MG #### [facility] [address] [place] [address] Petroleum Inspector: Cholo Alicea MD Abs.Neutrophil (Seg) 4.68 k/uL Normal 1.50-8.10 [facility] Comment on above: Performed By: #### D DEBBI, CDP, CP, MG #### [address] [place], [place] [address] Petroleum Inspector: Cholo Alicea MD Basophils/100 WBC (Bld) 1 % Normal 0-2 [facility] Comment on above: Performed By: #### D DEBBI, CDP, CP, MG #### [address] [place], [facility] Petroleum Inspector: Cholo Alicea MD Eosinophils (Bld) [#/Vol] 0.05 10*3/uL Normal 0.00-0.44 [facility] Comment on above: Performed By: #### D DEBBI, CDP, CP, MG #### [address] [place], [facility] Petroleum Inspector: Cholo Alicea MD Eosinophils/100 WBC (Bld) 1 % Normal 1-4 [facility] Comment on above: Performed By: #### D DEBBI, CDP, CP, MG #### [address] [place], [facility] Petroleum Inspector: Cholo Alicea MD Erythrocyte distribution width (RBC) [Ratio] 12.2 % Normal 11.8-14.4 [facility] Comment on above: Performed By: #### D DEBBI, CDP, CP, MG #### [address] [place], [facility] Petroleum Inspector: Cholo Alicea MD Hematocrit (Bld) [Volume fraction] 37.6 % Normal 36.3-47.1 [facility] Comment on above: Performed By: #### D DEBBI, CDP, CP, MG #### [address] [place] [address] Petroleum Inspector: Cholo Alicea MD Hemoglobin (Bld) [Mass/Vol] 13.1 g/dL Normal 11.9-15.1 [facility] Comment on above: Performed By: #### D DEBBI, CDP, CP, MG #### [facility] [address] [place], [place] [address]83 Petroleum Inspector: Cholo Alicea MD Immature granulocytes/100 WBC (Bld) 0 % Normal 0 [facility] Comment on above: Performed By: #### D DEBBI, CDP, CP, MG #### [facility] [address] [place], [place] [address]83 Petroleum Inspector: Cholo Alicea MD Lymphocytes (Bld) [#/Vol] 3.32 10*3/uL Normal 1.10-3.70 [facility] Comment on above: Performed By: #### D DEBBI, CDP, CP, MG #### [address] [place], [facility] Petroleum Inspector: Cholo Alicea MD Lymphocytes/100 WBC (Bld) 38 % Normal 24-43 [facility] Comment on above: Performed By: #### D DEBBI, CDP, CP, MG #### [address] [place], [place] [address] Petroleum Inspector: Cholo Alicea MD MCH (RBC) [Entitic mass] 30.2 pg Normal 25.2-33.5 [facility] Comment on above: Performed By: #### D DEBBI, CDP, CP, MG #### [address] [place], [place] [address]83 Petroleum Inspector: Cholo Alicea MD MCHC (RBC) [Mass/Vol] 34.8 g/dL Normal 28.4-34.8 [facility] Comment on above: Performed By: #### D DEBBI, CDP, CP, MG #### [address] [place], [place] 6857483 Petroleum Inspector: Cholo Alicea MD MCV (RBC) [Entitic vol] 86.6 fL Normal 82.6-102.9 M [facility] Comment on above: Performed By: #### D DEBBI, CDP, CP, MG #### [address] [place], [place] [address] Petroleum Inspector: Cholo Alicea MD Monocytes (Bld) [#/Vol] 0.62 10*3/uL Normal 0.10-1.20 [facility] Comment on above: Performed By: #### D DEBBI, CDP, CP, MG #### [address] [place], [place] [address]70683 Petroleum Inspector: Cholo Alicea MD Monocytes/100 WBC (Bld) 7 % Normal 3-12 M [facility] Comment on above: Performed By: #### D DEBBI, CDP, CP, MG #### [address] [place], [place] [address] Petroleum Inspector: Cholo Alicea MD Neutrophil (Seg) 53 % Normal 36-65 [facility] Comment on above: Performed By: #### D DEBBI, CDP, CP, MG #### [address] [place], [facility] Petroleum Inspector: Cholo Alicea MD NRBC Automated 0.0 per 100 WBC Normal 0.0 [facility] Comment on above: Performed By: #### D DEBBI, CDP, CP, MG #### [facility] [address] [place] [address] [place], [facility] Petroleum Inspector: Cholo Alicea MD Platelet mean volume (Bld) [Entitic vol] 10.3 fL Normal 8.1-13.5 [facility] Comment on above: Performed By: #### D DEBBI, CDP, CP, MG #### [address] [place] [address] Petroleum Inspector: Cholo Alicea MD Platelets (Bld) [#/Vol] 294 10*3/uL Normal 138-453 [facility] Comment on above: Performed By: #### D DEBBI, CDP, CP, MG #### [facility] [address] [place] [address] Petroleum Inspector: Cholo Alicea MD RBC (Bld) [#/Vol] 4.34 10*6/uL Normal 3.95-5.11 [facility] Comment on above: Performed By: #### D DEBBI, CDP, CP, MG #### [facility] [address] [place], [place] [address] Petroleum Inspector: Cholo Alicea MD WBC (Bld) [#/Vol] 8.8 10*3/uL Normal 3.5-11.3 [facility] Comment on above: Performed By: #### D EDBBI, CDP, CP, MG #### [address] [place], [place] 8326383 Petroleum Inspector: Cholo Alicea MD Comp Metabolic Profon 2023 Albumin [Mass/Vol] 4.3 g/dL Normal 3.5-5.2 [facility] Comment on above: Performed By: #### D DEBBI, CDP, CP, MG #### [address] [place], [place] 8305183 Petroleum Inspector: Cholo Alicea MD Albumin/Glob Ratio 1.6 Normal 1.0-2.5 [facility] Comment on above: Performed By: #### D DEBBI, CDP, CP, MG #### [facility] [address] [place] [address] Petroleum Inspector: Cholo Alicea MD Alkaline Phos 75 U/L Normal 35-104 [facility] Comment on above: Performed By: #### D DEBBI, CDP, CP, MG #### [facility] [address] [place], [place] [address] Petroleum Inspector: Cholo Alicea MD ALT [Catalytic activity/Vol] 9 U/L Normal 5-33 [facility] Comment on above: Performed By: #### D DEBBI, CDP, CP, MG #### [facility] [address] [place] [address] [place], [place] [address]83 Petroleum Inspector: Cholo Alicea MD Anion gap [Moles/Vol] 11 mmol/L Normal 9-17 [facility] Comment on above: Performed By: #### D DEBBI, CDP, CP, MG #### [facility] [address] [place] [address] [place], [place] [address]18883 Petroleum Inspector: Cholo Alicea MD AST [Catalytic activity/Vol] 15 U/L Normal <32 [facility] Comment on above: Performed By: #### D DEBBI, CDP, CP, MG #### [facility] [address] [place] [address] [place], [place] 2252683 Petroleum Inspector: Cholo Alicea MD Bilirubin [Mass/Vol] 0.3 mg/dL Normal 0.3-1.2 [facility] Comment on above: Performed By: #### D DEBBI, CDP, CP, MG #### [address] [place], [place] [address]34383 Petroleum Inspector: Cholo Alicea MD BUN/CRE Ratio 19 Normal 9-20 [facility] Comment on above: Performed By: #### D DEBBI, CDP, CP, MG #### [facility] [address] [place] [address] [place], [place] 1450383 Petroleum Inspector: Cholo Alicea MD Calcium [Mass/Vol] 8.7 mg/dL Normal 8.6-10.4 [facility] Comment on above: Performed By: #### D DEBBI, CDP, CP, MG #### [facility] [address] [place] [address] [place] [address] Petroleum Inspector: Cholo Alicea MD Chloride [Moles/Vol] 103 mmol/L Normal 98-107 [facility] Comment on above: Performed By: #### D DEBBI, CDP, CP, MG #### [facility] [address] [place] [address] Petroleum Inspector: Cholo Alicea MD CO2 [Moles/Vol] 24 mmol/L Normal 20-31 [facility] Comment on above: Performed By: #### D DEBBI, CDP, CP, MG #### [facility] [address] [place] [address] Petroleum Inspector: Cholo Alicea MD Creatinine [Mass/Vol] 0.8 mg/dL Normal 0.5-0.9 [facility] Comment on above: Performed By: #### D DEBBI, CDP, CP, MG #### [facility] [address] [place] [address] Petroleum Inspector: Cholo Alicea MD GFR/1.73 sq M.predicted among non-blacks MDRD (S/P/Bld) [Vol rate/Area] mL/min/{1.73_m2} Normal >60 [facility] Comment on above: Result Comment: These results [...] affects renal tubular secretion. Performed By: #### D DEBBI, CDP, CP, MG #### [facility] [address] [place] [address] Petroleum Inspector: Cholo Alicea MD Glucose [Mass/Vol] 98 mg/dL Normal 70-99 [facility] Comment on above: Performed By: #### D DEBBI, CDP, CP, MG #### [facility] [address] [place] [address] Petroleum Inspector: Cholo Alicea MD Potassium [Moles/Vol] 3.3 mmol/L Low 3.7-5.3 [facility] Comment on above: Performed By: #### D DEBBI, CDP, CP, MG #### [facility] [address] [place] [address] Petroleum Inspector: Cholo Alicea MD Protein [Mass/Vol] 7.0 g/dL Normal 6.4-8.3 [facility] Comment on above: Performed By: #### D DEBBI, CDP, CP, MG #### [facility] [address] [place] [address] Petroleum Inspector: Cholo Alicea MD Sodium [Moles/Vol] 138 mmol/L Normal 135-144 [facility] Comment on above: Performed By: #### Armani DEBBI, CDP, CP, MG #### [facility] [address] [place] [address] Petroleum Inspector: Cholo Alicea MD Urea nitrogen [Mass/Vol] 15 mg/dL Normal 6-20 [facility] Comment on above: Performed By: #### D DEBBI, CDP, CP, MG #### [facility] [address] [place] [address] Petroleum Inspector: Cholo Alicea MD D-Dimer Teston 11-17-2023 D-Dimer Test 0.40 ug/mL FEU Normal 0.00-0.59 [facility] Comment on above: Result Comment: When combined with a low clinical probability, a D dimer value of <0.50 ug/mL FEU is considered negative for DVT and PE (negative predictive value of 98%, sensitivity of 97%). If this test is not being used to help rule out DVT and PE, then the following reference range should be utilized: 0.00 - 0.59 ug/mL FEU. The D-Dimer assay is intended for use as an aid in the diagnosis of venous thromboembolism (DVT and PE) and the results should be interpreted in conjunction with the patient's medical history, clinical presentation, and other findings. Elevated levels of D-dimer activity can be seen in any state of coagulation activation and is not recommended in patients with therapeutic dose anticoagulant therapy for >24 hours, fibrinolytic therapy within the previous 7 days, trauma or surgery within the previous 4 weeks, disseminated malignancies, aortic aneurysm, sepsis, severe infections, pneumonia, severe skin infections, liver cirrhosis, advanced age, coronary disease, diabetes, and . A very low percentage of patients with DVT may yield D-dimer results below the cutoff of 0.5 ug/mL FEU. This is known to be more prevalent in patients with distal DVT. Performed By: #### D DEBBI, CDP, CP, MG #### [address] [place] [address] Petroleum Inspector: Cholo Alicea MD HCG Screen, Bloodon 11-17-19 24 HCG Screen, Blood Negative Normal NEG [facility] Comment on above: Result Comment: Spec imens with hCG levels near the threshold of the test (25 mIU/mL) may give a negative or indeterminate result. In such cases, another test should be performed with a new specimen in 48-72 hours. If early is suspected clinically in this setting, correlation with quantitative serum b-hCG level is suggested. [facility] has confirmed the use of plasma for this test. This has not been cleared or approved by the U.S. Food and Drug Administration. The FDA has determined that such clearance is not necessary. Performed By: #### D DEBBI, CDP, CP, MG #### [address] [place] [address] Petroleum Inspector: Cholo Alicea MD Magnesiumon 2 Magnesium [Mass/Vol] 1.8 mg/dL Normal 1.6-2.6 [facility] Comment on above: Performed By: #### D DEBBI, CDP, CP, MG #### [address] [place] [address] Petroleum Inspector: Cholo Alicea MD OQYS-QbX-4oc 11-17-2023 SARS-CoV-2 (COVID-19) RNA ALEKSANDER+probe Ql (Unsp spec) Not detected Normal NOTDET [facility] Comment on above: Result Comment: Rapid NAAT: The specimen is NEGATIVE for SARS-CoV-2, the novel coronavirus associated with COVID-19. The ID NOW COVID-19 assay is designed to detect the virus that causes COVID-19 in patients with signs and symptoms of infection who are suspected of COVID-19. An individual without symptoms of COVID-19 and who is not shedding SARS-CoV-2 virus would expect to have a negative (not detected) result in this assay. Negative results should be treated as presumptive and, if inconsistent with clinical signs and symptoms or necessary for patient management, should be tested with an alternative molecular assay. Negative results do not preclude SARS-CoV-2 infection and should not be used as the sole basis for patient management decisions. Fact sheet for Healthcare Providers: https://www.fda.gov/media/883378/download Fact sheet for Patients: https://www.fda.gov/media/810014/download Methodology: Isothermal Nucleic Acid Amplification Performed By: #### C OVRB #### [facility] [address] [place] [address] [place] [address] Petroleum Inspector: Cholo Alicea MD XR CHEST (2 VW)on 11-17-2023 XR CHEST (2 VW) EXAMINATION: TWO XRAY VIEWS OF THE CHEST 11/17/2023 9:03 pm COMPARISON: None. HISTORY: ORDERING SYSTEM PROVIDED HISTORY: Persistent cough TECHNOLOGIST PROVIDED HISTORY: Persistent cough FINDINGS: Cardiac and mediastinal contours are within normal limits. No focal airspace consolidation. No pleural effusion or pneumothorax. No acute osseous abnormality. IMPRESSION: No acute cardiopulmonary disease. Interpreted by: Rosalee Guevara MD Signed by: Rosalee Guevara MD 11/17/23 Final result Normal [facility] Ambulatory Visit Summaryon 0 11-08-2023 Ambulatory Visit Summary LULÚ GAITAN :1995 Visit Date:11/08/2023 Ambulatory Visit Instructions Your Diagnosis Cystitis Your Care Team Attending Physician - ROLANDO DEVLIN, Rishi Ghosh Primary Care Physician - MATTHEW LEMUS DO This Is Your Medications List albuterol (Albuterol (Eqv-ProAir HFA) 90 mcg/inh inhalation aerosol) aripiprazole (aripiprazole 5 mg Tab) busPIRone (busPIRone 10 mg Tab) ciprofloxacin (Cipro 500 mg Tab) ergocalciferol (Vitamin D) fluconazole (fluconazole 150 mg Tab) hydrOXYzine (hydrOXYzine hydrochloride 25 mg Tab) levofloxacin (Levaquin 500 mg Tab) metformin (metformin 500 mg ER Tab) pantoprazole (Pantoprazole [address] Tab) phentermine (Adipex-P) tamsulosin (Flomax 0.4 mg Cap) trazodone (traZODONE 100 mg Tab) vortioxetine (Trintellix 5 mg oral tablet) Procedures Performed Stent removal (05/10/2023), Cystoscopy (09/29/2021), EGD (esophagogastroduode noscopy) gastric outlet reduction, Endometrial ablation, Ovarian cystectomy. Medications What How Much When Instructions Unchanged albuterol (Albuterol (Eqv-ProAir HFA) 90 mcg/ inh inhalation aerosol) Inhalation Every 6 hours Unchanged aripiprazole (aripiprazole 5 mg Tab) By Mouth Every day Unchanged busPIRone (busPIRone 10 mg Tab) By Mouth 2 times a day Unchanged ciprofloxacin (Cipro 500 mg Tab) 1 Tablets By Mouth Every day Take 1 tablet the day before the procedure and 1 tablet after the procedure Unchanged ergocalciferol (Vitamin D) By Mouth Every week Unchanged fluconazole (fluconazole 150 mg Tab) 2 Tablets By Mouth Once take 1 tab PO. may repeat dose in 72 hr if still symptomatic. Unchanged hydrOXYzine (hydrOXYzine hydrochloride 25 mg Tab) By Mouth 4 times a day Unchanged levofloxacin (Levaquin 500 mg Tab) 1 Tablets By Mouth Every 24 hours Unchanged metformin (metformin 500 mg ER Tab) By Mouth Every day Unchanged pantoprazole (Pantoprazole [address] Tab) By Mouth Every day Unchanged phentermine (Adipex-P) By Mouth Every day Unchanged tamsulosin (Flomax 0.4 mg Cap) 1 Capsules By Mouth Every day Unchanged trazodone (traZODONE 100 mg Tab) By Mouth 2 times a day Unchanged vortioxetine (Trintellix 5 mg oral tablet) By Mouth Every day Allergies Bee Stings (Unknown) LaMICtal (Facial swelling) Latuda (Suicidal ideation) Vicodin (Hallucinations) Zithromax Z-Oscar (Unknown) azithromycin (Unknown) bee pollen (Edema) Problems Ongoing - Any problem that you are currently receiving treatment for. Anxiety Asthma Bipolar disorder Chronic depression Complicated migraine Cystitis Endometriosis Flank pain Foreign body in bladder Gross hematuria Schizophrenia Urge incontinence Patient Survey You may receive a survey via text or e-mail asking about your office visit. Please share your experience with us by completing your survey. We appreciate your feedback and thank you for choosing us for your care. Normal [facility] RAD - MISCon 11-07-2023 RAD - MISC [id number] #1.00TIFF Normal [facility] RAD - Ultrasound Reporton RAD - Ultrasound Report [id number] #1.00TIFF Normal [facility] RAD - CT Reporton 05-25-2023 RAD - CT Report [id number] #1.00TIFF Normal [facility] HCG ( test) IA.nikkii d Ql (U)Ordered By: Fany Ceballos on 05-19-2023 HCG ( test) Ql (U) Negative [facility] HCG,Urineon 05-19-2023 Beta HCG ( test) Ql (U) Negative Normal [facility] Comment on above: Result Comment: PERF ORMED BY: [place] [address] PATHOLOGIST SPLITTER OPERATOR MOISES VELASCO M.D. Performed By: #### U HCG #### [address] 05-19-2023 L Specimen: [id number] Received: 05/20/23 Status: RUDY [place] Num: [id number] Spec Type: Surgical Subm Dr: Fany Ceballos MD Tissues: A Duodenum - Biopsy (DUODENAL BX) B Esophagus Biopsy (ESOPHAGUS BX) Procedures: HE/4, Gross/Micro L4/2 Age/ Patient Sex Location Account Attending Physician Lulú Gaitan 28/F [id number] Fany Ceballos MD SPEC NUM: [id number] RECD: 05/20/23 STATUS: RUDY DOVER NUM: [id number] PHILIP: 05/19/23- [facility] DR: Fany Ceballos MD ENTERED: 05/20/23 ESTEFANIA [...] submitted in one cassette labeled B1. Specimen: [id number] Received: 05/20/23 Status: RUDY Danyelle Num: [id number] Spec Type: Surgical Subm Dr: Fany Ceballos MD Tissues: A Duodenum - Biopsy (DUODENAL BX) B Esophagus Biopsy (ESOPHAGUS BX) Procedures: HE/4, Gross/Micro L4/2 Patient: MarcellusadilsonLulú L [id number] (Continued) Specimen: [id number] Received: 05/20/23 (Continued) Signed (signature on file) Cielo Trimble MD 05/24/23 2301 Specimen: [id number] Received: 05/20/23 Status: RUDY [place] Num: [id number] Spec Type: Surgical Subm Dr: Fany Ceballos MD Tissues: A Duodenum - Biopsy (DUODENAL BX) B Esophagus Biopsy (ESOPHAGUS BX) Procedures: HE/Demetria, Gross/Micro L4/2 Patient: Lulú Gaitan Maury [id number] (Continued) Specimen: [id number] Received: 05/20/23 (Continued) Microscopic Description A. Two H E slides reviewed. The microscopic examination confirms the diagnosis. B. Two H E slides reviewed. The microscopic examination confirms the diagnosis. CPT Codes 98168a7 Specimen: [id number] Received: 05/20/23 Status: RUDY Danyelle Num: [id number] Spec Type: Surgical Subm Dr: Fany Ceballos MD Tissues: A Duodenum - Biopsy (DUODENAL BX) B Esophagus Biopsy (ESOPHAGUS BX) Procedures: MARIELOS, Gross/Micro L4/2 Patient: Lulú Gaitan [id number] (Continued) Signed (signature on file) Cielo Trimble MD 05/24/23 9910 Normal [facility] CT abdomen pelvis w [facility] abdomen pelvis w [address] [address] [address] Scan Report Signed Patient: Lulú Gaitan MR#: [id number] 4 : 1995 Acct:[id number] Age/Sex: 28 / F ADM Date: 05/12/23 Loc: CT Room: Type: [facility] Attending Dr: Fany Ceballos MD Copies [...] Pham Jr., D.OAung05/12/2023 10:29 AM Dictation Location: [place] [address] Transcribed By: [facility] 05/12/23 1029 Dictated By: Samy Pham Jr, DO 05/12/23 1023 Signed By: 05/12/23 1029 [facility] Consent for Procedure/Surger yon 05-11-2023 Consent for Procedure/Surgery [id number] 6#1.00TIFF [facility] Ambulatory Visit Summaryon 1 07-11-2022 [...] Rishi MARSHALL MD Where: [facility] Patient Educationon 05-10-20 23 Patient Education Urology Hematuria, Adult Hematuria [...] these instructions at home: Medicines ? Take gwhn-atp-zivuqlp and prescription medicines only as told by [...] the blood stops without treatment. ? Take puid-wbr-xtdsleo and prescription medicines only as told by your health care provider. ? Drink enough fluid to keep your urine pale yellow. This information is not intended to replace advice given to you by your health care provider. Make sure you discuss any questions you have with your health care provider. Document Revised: 01/14/2021 Document Reviewed: 01/14/2021 [employer] Patient Education ? 2022 [employer]. [employer] [facility] Urology Office/Clinic Noteon 05-10-2023 Urology Office/Clinic [...] Bactrim x 3 days empirically. went to [facility] next day bc blood persisted. CT [...] Urology [address], [place] [address]- Additional Instructions: w/PVR Patient Education Hematuria, Adult I, Johana De Jesus , personally scribed for Dr. Marshall on 05/10/2023 11:52:58. . Portions of this record may have been created with voice recognition artificial intelligence software, specifically [facility], [employer] and or [employer]. Substitutions may have occurred due to the [...] Daily busPIRon (more content not included)... Normal [facility] Comment on above: Result Comment: Elec tronically Signed By: Rishi MARSHALL MD\.br\Date and Time Signed: 05/10/23 11:55 EST\.br\Electronically Co-Signed By: Johana De Jesus\.br\Date and Time Co-Signed: 05/10/23 11:53 EST RAD - MISCon 04-26-2023 RAD - MISC [id number]# 1.00TIFF Normal [facility] Lab Reportson 04-15-2023 Lab Reports [id number]# 1.00TIFF Normal [facility] Operative Reporton Operative Report [id number] #1.00TIFF Normal [facility] Lab Reportson 04-08-2023 Lab Reports [id number] #1.00TIFF Normal [facility] Insurance Correspondenceon 1 05-30-2022 Insurance Correspondence [id number] 4#1.00TIFF Normal [facility] Consent for Procedure/Surger yon 03-24-2023 Consent for Procedure/Surgery [id number]#1.00TIFF Normal [facility] CT ABDOMEN PELVIS W IV CONTR [...] Jennie Hernández MD 03/11/23 Final result Normal [facility] Cult,Urineon 03-11-2023 Cult,Urine Specimen Description .CLEAN CATCH URINE Culture NO SIGNIFICANT GROWTH Report Status FINAL 03/11/2023 Normal [facility] Comment on above: Performed By: #### D DEBBI, CDP, CP, MG #### [facility] [address] [place] [address] [place] [address] Petroleum Inspector: Cholo Alicea MD CBC with Diffon 03-10-2023 Abs. Basophil 0.05 k/uL Normal 0.00-0.20 [facility] Comment on above: Performed By: #### D DEBBI, CDP, CP, MG #### [address] [place] [address] Petroleum Inspector: Cholo Alicea MD Abs.Imm.Granulocyte <0.03 Normal 0.00-0.30 [facility] Comment on above: Performed By: #### D DEBBI, CDP, CP, MG #### [address] [place] [place] [address] Petroleum Inspector: Cholo Alicea MD Abs.Neutrophil (Seg) 3.36 k/uL Normal 1.50-8.10 [facility] Comment on above: Performed By: #### D DEBBI, CDP, CP, MG #### [address] [place] [place] [address] Petroleum Inspector: Cholo Alicea MD Basophils/100 WBC (Bld) 1 % Normal 0-2 [facility] Comment on above: Performed By: #### D DEBBI, CDP, CP, MG #### [address] [place] [address]83 Petroleum Inspector: Cholo Alicea MD Eosinophils (Bld) [#/Vol] 0.05 10*3/uL Normal 0.00-0.44 [facility] Comment on above: Performed By: #### D DEBBI, CDP, CP, MG #### [facility] [address] [place] [address] Dr. [place], [place] [address] Petroleum Inspector: Cholo Alicea MD Eosinophils/100 WBC (Bld) 1 % Normal 1-4 [facility] Comment on above: Performed By: #### D DEBBI, CDP, CP, MG #### [address] [place], [facility] Petroleum Inspector: Cholo Alicea MD Erythrocyte distribution width (RBC) [Ratio] 11.9 % Normal 11.8-14.4 [facility] Comment on above: Performed By: #### D DEBBI, CDP, CP, MG #### [address] [place], [facility] Petroleum Inspector: Cholo Alicea MD Hematocrit (Bld) [Volume fraction] 37.5 % Normal 36.3-47.1 [facility] Comment on above: Performed By: #### D DEBBI, CDP, CP, MG #### [address] [place], [facility] Petroleum Inspector: Cholo Alicea MD Hemoglobin (Bld) [Mass/Vol] 12.9 g/dL Normal 11.9-15.1 [facility] Comment on above: Performed By: #### D DEBBI, CDP, CP, MG #### [facility] [address] [place] [address] Dr. [place], [place] [address] Petroleum Inspector: Cholo Alicea MD Immature granulocytes/100 WBC (Bld) 0 % Normal 0 [facility] Comment on above: Performed By: #### D DEBBI, CDP, CP, MG #### [address] [place], [place] [address]83 Petroleum Inspector: Cholo Alicea MD Lymphocytes (Bld) [#/Vol] 2.79 10*3/uL Normal 1.10-3.70 [facility] Comment on above: Performed By: #### D DEBBI, CDP, CP, MG #### [address] [place], [facility] Petroleum Inspector: Cholo Alicea MD Lymphocytes/100 WBC (Bld) 42 % Normal 24-43 [facility] Comment on above: Performed By: #### D DEBBI, CDP, CP, MG #### [address] [place], [facility] Petroleum Inspector: Cholo Alicea MD MCH (RBC) [Entitic mass] 30.4 pg Normal 25.2-33.5 [facility] Comment on above: Performed By: #### D DEBBI, CDP, CP, MG #### [address] [place] [address] Petroleum Inspector: Cholo Alicea MD MCHC (RBC) [Mass/Vol] 34.4 g/dL Normal 28.4-34.8 [facility] Comment on above: Performed By: #### D DEBBI, CDP, CP, MG #### [address] [place], [facility] Petroleum Inspector: Cholo Alicea MD MCV (RBC) [Entitic vol] 88.2 fL Normal 82.6-102.9 [facility] Comment on above: Performed By: #### D DEBBI, CDP, CP, MG #### [address] [place], [facility] Petroleum Inspector: Cholo Alicea MD Monocytes (Bld) [#/Vol] 0.46 10*3/uL Normal 0.10-1.20 [facility] Comment on above: Performed By: #### D DEBBI, CDP, CP, MG #### [address] [place], [place] [address]183 Petroleum Inspector: Cholo Alicea MD Monocytes/100 WBC (Bld) 7 % Normal 3-12 [facility] Comment on above: Performed By: #### D DEBBI, CDP, CP, MG #### [facility] [address] [place] [address] Dr. [place], [facility] Petroleum Inspector: Cholo Alicea MD Neutrophil (Seg) 49 % Normal 36-65 [facility] Comment on above: Performed By: #### D DEBBI, CDP, CP, MG #### [facility] [address] [place], [facility]83 Petroleum Inspector: Cholo Alicea MD NRBC Automated 0.0 per 100 WBC Normal 0.0 [facility] Comment on above: Performed By: #### D DEBBI, CDP, CP, MG #### [address] [place], [facility] Petroleum Inspector: Cholo Alicea MD Platelet mean volume (Bld) [Entitic vol] 10.5 fL Normal 8.1-13.5 [facility] Comment on above: Performed By: #### D DEBBI, CDP, CP, MG #### [address] [place], [facility] Petroleum Inspector: Cholo Alicea MD Platelets (Bld) [#/Vol] 320 10*3/uL Normal 138-453 [facility] Comment on above: Performed By: #### D DEBBI, CDP, CP, MG #### [address] [place], [facility] Petroleum Inspector: Cholo Alicea MD RBC (Bld) [#/Vol] 4.25 10*6/uL Normal 3.95-5.11 [facility] Comment on above: Performed By: #### D DEBBI, CDP, CP, MG #### [address] [place] [address] Petroleum Inspector: Cholo Alicea MD WBC (Bld) [#/Vol] 6.7 10*3/uL Normal 3.5-11.3 [facility] Comment on above: Performed By: #### D DEBBI, CDP, CP, MG #### [facility] [address] [place], [place] [address] Petroleum Inspector: Cholo Alicea MD Comp Metabolic Profon 2022 Albumin [Mass/Vol] 4.6 g/dL Normal 3.5-5.2 [facility] Comment on above: Performed By: #### D DEBBI, CDP, CP, MG #### [facility] [address] [place], [place] [address]83 Petroleum Inspector: Cholo Alicea MD Albumin/Glob Ratio 1.5 Normal 1.0-2.5 [facility] Comment on above: Performed By: #### D DEBBI, CDP, CP, MG #### [address] [place], [place] [address]83 Petroleum Inspector: Cholo Alicea MD Alkaline Phos 72 U/L Normal 35-104 [facility] Comment on above: Performed By: #### D DEBBI, CDP, CP, MG #### [address] [place], [place] [address]83 Petroleum Inspector: Cholo Alicea MD ALT [Catalytic activity/Vol] 42 U/L High 5-33 [facility] Comment on above: Performed By: #### D DEBBI, CDP, CP, MG #### [facility] [address] [place] [address] Dr[place], [place] 9622683 Petroleum Inspector: Cholo Alicea MD Anion gap [Moles/Vol] 11 mmol/L Normal 9-17 [facility] Comment on above: Performed By: #### D DEBBI, CDP, CP, MG #### [facility] [address] [place] [address] Dr. [place], [place] 8580883 Petroleum Inspector: Cholo Alicea MD AST [Catalytic activity/Vol] 31 U/L Normal <32 [facility] Comment on above: Performed By: #### D DEBBI, CDP, CP, MG #### [facility] [address] [place], [place] [address]98683 Petroleum Inspector: Cholo Alicea MD Bilirubin [Mass/Vol] 0.4 mg/dL Normal 0.3-1.2 [facility] Comment on above: Performed By: #### D DEBBI, CDP, CP, MG #### [facility] [address] [place], [facility] Petroleum Inspector: Cholo Alicea MD BUN/CRE Ratio 10 Normal 9-20 [facility] Comment on above: Performed By: #### D DEBBI, CDP, CP, MG #### [facility] [address] [place] [address] Dr. [place], [facility] Petroleum Inspector: Cholo Alicea MD Calcium [Mass/Vol] 10.4 mg/dL Normal 8.6-10.4 [facility] Comment on above: Performed By: #### D DEBBI, CDP, CP, MG #### [address] [place], [place] [address]879483 Petroleum Inspector: Cholo Alicea MD Chloride [Moles/Vol] 101 mmol/L Normal 98-107 [facility] Comment on above: Performed By: #### D DEBBI, CDP, CP, MG #### [facility] [address] [place] [address] Dr. [place], [facility] Petroleum Inspector: Cholo Alicea MD CO2 [Moles/Vol] 26 mmol/L Normal 20-31 [facility] Comment on above: Performed By: #### D DEBBI, CDP, CP, MG #### [facility] [address] [place] [address] Petroleum Inspector: Cholo Alicea MD Creatinine [Mass/Vol] 0.9 mg/dL Normal 0.5-0.9 [facility] Comment on above: Performed By: #### D DEBBI, CDP, CP, MG #### [facility] [address] [place] [address] [place] [address] Petroleum Inspector: Cholo Alicea MD GFR/1.73 sq M.predicted among non-blacks MDRD (S/P/Bld) [Vol rate/Area] mL/min/{1.73_m2} Normal >60 [facility] Comment on above: Result Comment: These results [...] affects renal tubular secretion. Performed By: #### D DEBBI, CDP, CP, MG #### [address] [place] [address] Petroleum Inspector: Cholo Alicea MD Glucose [Mass/Vol] 97 mg/dL Normal 70-99 [facility] Comment on above: Performed By: #### D DEBBI, CDP, CP, MG #### [address] [place] [address] Petroleum Inspector: Cholo Alicea MD Potassium [Moles/Vol] 4.2 mmol/L Normal 3.7-5.3 [facility] Comment on above: Performed By: #### D DEBBI, CDP, CP, MG #### [address] [place] [address] Petroleum Inspector: Cholo Alicea MD Protein [Mass/Vol] 7.6 g/dL Normal 6.4-8.3 [facility] Comment on above: Performed By: #### D DEBBI, CDP, CP, MG #### [address] [place] [address] Petroleum Inspector: Cholo Alicea MD Sodium [Moles/Vol] 138 mmol/L Normal 135-144 [facility] Comment on above: Performed By: #### D DEBBI, CDP, CP, MG #### [facility] [address] [place] [address] Petroleum Inspector: Cholo Alicea MD Urea nitrogen [Mass/Vol] 9 mg/dL Normal 6-20 [facility] Comment on above: Performed By: #### D DEBBI, CDP, CP, MG #### [facility] [address] [place] [address] Petroleum Inspector: Cholo Alicea MD Creatine Kinaseon 4 CK [Catalytic activity/Vol] 51 U/L Normal 26-192 [facility] Comment on above: Performed By: #### D DEBBI, CDP, CP, MG #### [facility] [address] [place] [address] Petroleum Inspector: Cholo Alicea MD HCG, ,Urineon 03-10 Beta HCG ( test) Ql (U) Negative Normal NEG [facility] Comment on above: Result Comment: Spec imens with hCG levels near the threshold of the test (25 mIU/mL) may give a negative or indeterminate result. In such cases, another test should be performed with a new specimen in 48-72 hours. If early is suspected clinically in this setting, correlation with quantitative serum b-hCG level is suggested. [facility] has confirmed the use of plasma for this test. This has not been cleared or approved by the U.S. Food and Drug Administration. The FDA has determined that such clearance is not necessary. Performed By: #### D DEBBI, CDP, CP, MG #### [facility] [address] [place] [address] Petroleum Inspector: Cholo Alicea MD Urinalysis w/ Microon 4 Bacteria TRACE Abnormal NONE [facility] Comment on above: Performed By: #### D DEBBI, CDP, CP, MG #### [facility] [address] [place] [address] Petroleum Inspector: Cholo Alicea MD Bilirubin, SemiQt,Ur Negative Normal NEG [facility] Comment on above: Performed By: #### D DEBBI, CDP, CP, MG #### [facility] [address] [place] [address] [place] [address] Petroleum Inspector: Cholo Alicea MD Blood, Urine Negative Normal NEG [facility] Comment on above: Performed By: #### D DEBBI, CDP, CP, MG #### [facility] [address] [place] [address] [place] [address] Petroleum Inspector: Cholo Alicea MD Clarity (U) Clear Normal CLEAR [facility] Comment on above: Performed By: #### D DEBBI, CDP, CP, MG #### [address] [place], [place] [address]283 Petroleum Inspector: Cholo Alicea MD Color (U) Yellow Normal YEL [facility] Comment on above: Performed By: #### D DEBBI, CDP, CP, MG #### [address] [place] [address] Petroleum Inspector: Cholo Alicea MD Epithelial cells LM Ql (Urine sed) 0 TO 2 Normal 0-25 [facility] Comment on above: Performed By: #### D DEBBI, CDP, CP, MG #### [facility] [address] [place] [address] Dr[place], [place] 2670683 Petroleum Inspector: Cholo Alicea MD Glucose Ql (U) Negative Normal NEG [facility] Comment on above: Performed By: #### D DEBBI, CDP, CP, MG #### [address] [place] [address] Petroleum Inspector: Cholo Alicea MD Ketones Ql (U) Negative Normal NEG [facility] Comment on above: Performed By: #### D DEBBI, CDP, CP, MG #### [facility] Lab [address] [place] [address] [place], [place] [id number] Petroleum Inspector: Cholo Alicea MD Leukocyte esterase Test strip Ql (U) Negative Normal NEG [facility] Comment on above: Performed By: #### D DEBBI, CDP, CP, MG #### [address] [place], [place] [id number] Petroleum Inspector: Cholo Alicea MD Nitrite,Ur Negative Normal NEG [facility] Comment on above: Performed By: #### D DEBBI, CDP, CP, MG #### [address] [place], [place] [id number] Petroleum Inspector: Cholo Alicea MD PH,Ur 7.5 Normal 5.0-9.0 [facility] Comment on above: Performed By: #### D DEBBI, CDP, CP, MG #### [address] [place], [place] [address]83 Petroleum Inspector: Cholo Alicea MD Protein Ql (U) Negative Normal NEG [facility] Comment on above: Performed By: #### D DEBBI, CDP, CP, MG #### [address] [place], [place] 8[address]383 Petroleum Inspector: Cholo Alicea MD Spec. [place],Ur 1.010 Normal 1.010-1.020 [facility] Comment on above: Performed By: #### D DEBBI, CDP, CP, MG #### [address] [place], [place] [id number] Petroleum Inspector: Cholo Alicea MD Urine RBC's None Normal 0-2 [facility] Comment on above: Performed By: #### D DEBBI, CDP, CP, MG #### [address] [place] [address] Petroleum Inspector: Cholo Alicea MD Urine WBC's 0 TO 2 Normal 0-5 [facility] Comment on above: Performed By: #### D DEBBI, CDP, CP, MG #### [facility] Lab [address] [place] [address] Petroleum Inspector: Cholo Alicea MD Urobilinogen,Ur Normal Normal 0.0-1.0 [facility] Comment on above: Performed By: #### D DEBBI, CDP, CP, MG #### [facility] Lab [address] [place] [address] Petroleum Inspector: Cholo Alicea MD COVID + FLU Quick Testingon 02-11-2023 SARS-CoV-2 (COVID-19) RNA ALEKSANDER+probe Ql (Unsp spec) Negative [employer] Other COVID + FLU Quick Testing Negative [employer] Other Quick Strepon 02-11-2023 S. pyogenes Org specific cx Ql (Throat) Negative 360T Other Quick Strep [employer] Other CNPNon 02-03-2023 CNPN Telephone (GASTSP) LULÚ GAITAN ([id number]) 1995 F Date Time Provider Department 02/03/23 [...] list full name of hospital or facility)? [facility] If the patient had a [...] G/J Tube?No Preferred phone number for contact: [phone] ? Viviana David 02/03/2023 3:38 PM Signed [...] GP here. Please send letter to primary Kiat Jewell 02/10/2023 4:25 PM Signed Letter was [...] Status:Closed by VIVIANA DAVID on 02/04/23 Normal [facility] ECG 12 lead ECGon 02-03-2023 ECG 12 lead ECG [facility] Main [place] [id number] Electrocardiograph Report Signed Patient: Lulú Gaitan MR#: [id number] 4 : 1995 Acct:[id number] Age/Sex: 27 / F ADM Date: 02/02/23 Loc: Room: [address] [place] [address] Type: ADM IN Attending Dr: Karri Kamara [...] Charles Mauro MD 0 02/04/23 1319 Normal [facility] Alanine aminotransferase [En zymatic activity/volume] in Serum or PlasmaOrdered By: Matthew Leslie on 02-02-2023 ALT [Catalytic activity/Vol] 38 U/L Normal 7-52 [facility] Comment on above: Performed By: #### C ASIM BARONE ADDONUAPLUS, URDS #### [facility] [address] Albumin [Mass/volume] in Ser um or Plasma by Bromocresol green (BCG) dye binding methoOrdered By: Matthew Leslie on 02-02-2023 Albumin BCG dye [Mass/Vol] 4.6 g/dL 3.5-5.7 [facility] Alkaline phosphatase [Enzyma tic activity/volume] in Serum or PlasmaOrdered By: Matthew Leslie on 02-02-2023 ALP [Catalytic activity/Vol] 54 U/L Normal 34-104 [facility] Comment on above: Performed By: #### C ASIM BARONE ADDONUAPLUS, URDS #### [facility] [address] [place] [id number] [facility] Amphetamine Screen Ql (U)Ord ered By: Matthew Leslie on 02-02-2023 Amphetamines Ql (U) Negative Negative [facility] Aspartate aminotransferase [ Enzymatic activity/volume] in Serum or PlasmaOrdered By: Matthew Leslie on 02-02-2023 AST [Catalytic activity/Vol] 32 U/L Normal 13-39 [facility] Comment on above: Performed By: #### C UU, UHCG, ADDONUAPLUS, URDS #### [facility] [address] [place] [address] Automated basophil %Ordered By: Matthew Leslie on 02-02-2023 Basophils/100 WBC (Bld) 0.9 % Normal . [facility] Comment on above: Performed By: #### E TANYA, HEPATIC, TSH3 wRFLX, CBC, CMP, [id number] #### [address] Automated basophil countOrde red By: Matthew Leslie on 02-02-2023 Basophils (Bld) [#/Vol] 0.1 10*3/uL Normal 0.0-0.2 [facility] Comment on above: Result Comment: PERF ORMED BY: [place] [address] PATHOLOGIST SPLITTER OPERATOR MOISES VELASCO M.D. Performed By: #### E TANYA, HEPATIC, TSH3 wRFLX, CBC, CMP, [id number] #### [facility] [address] [place] [address] Automated blood monocyte cou ntOrdered By: Matthew Leslie on 02-02-2023 Monocytes (Bld) [#/Vol] 0.6 10*3/uL Normal 0.0-0.8 [facility] Comment on above: Performed By: #### E TANYA, HEPATIC, TSH3 wRFLX, CBC, CMP, [id number] #### [facility] [address] [place] [address] Automated eosinophil %Ordere d By: Matthew Leslie on 02-02-2023 Eosinophils/100 WBC (Bld) 0.4 % Normal . [facility] Comment on above: Performed By: #### E TANYA, HEPATIC, TSH3 wRFLX, CBC, CMP, [id number] #### [facility] [address] Automated eosinophil countOr dered By: Matthew Leslie on 02-02-2023 Eosinophils (Bld) [#/Vol] 0.0 10*3/uL Normal 0.0-0.45 [facility] Comment on above: Performed By: #### E TANYA, HEPATIC, TSH3 wRFLX, CBC, CMP, [id number] #### [facility] [address] Automated erythrocytes count in urine sediment (number/area)Ordered By: Matthew Leslie on 02-02-2023 RBC Auto (Urine sed) [#/Area] 10-19 [HPF] 0-4 [facility] Automated leukocytes count i n urine sediment (number/area)Ordered By: Matthew Leslie on 02-02-2023 WBC Auto (Urine sed) [#/Area] 10-19 [HPF] 0-4 [facility] Automated monocyte %Ordered By: Matthew Leslie on 02-02-2023 Monocytes/100 WBC (Bld) 7.9 % Normal . [facility] Comment on above: Performed By: #### E TANYA, HEPATIC, TSH3 wRFLX, CBC, CMP, [id number] #### [facility] [address] Automated neutrophil %Ordere d By: Matthew Leslie on 02-02-2023 Neutrophils/100 WBC (Bld) 54.8 % Normal . [facility] Comment on above: Performed By: #### E TANYA, HEPATIC, TSH3 wRFLX, CBC, CMP, [id number] #### [facility] [address] Automated urine color determ inationOrdered By: Matthew Leslie on 02-02-2023 Color (U) Yellow Normal Yellow [facility] Comment on above: Order Comment: Name Collection Type:: Clean-Voided Midstream Performed By: #### C UU, UHCG, ADDONUAPLUS, URDS #### [facility] [address] [place] [address] Automated urine hyaline cast s count (number/volume)Ordered By: Matthew Leslie on 02-02-2023 Hyaline casts Auto (U) [#/Vol] 0-1 [LPF] 0-1 [facility] Barbiturates [Presence] in U rine by Screen methodOrdered By: Matthew Leslie on 02-02-2023 Barbiturates Screen Ql (U) Negative Negative [facility] Benzodiazepines Screen Ql (U )Ordered By: Matthew Leslie on 02-02-2023 Benzodiazepines Ql (U) Negative Negative [facility] Benzoylecgonine [Presence] i n Urine by Screen methodOrdered By: Matthew Leslie on 02-02-2023 Benzoylecgonine Screen Ql (U) Negative Negative [facility] Bilirubin Test strip Ql (U)O rdered By: Matthew Leslie on 02-02-2023 Bilirubin Ql (U) Negative Negative [facility] Bilirubin.direct [Mass/volum e] in Serum or PlasmaOrdered By: Matthew Leslie on 02-02-2023 Bilirubin.direct [Mass/Vol] 0.10 mg/dL 0.03-0.18 [facility] Bilirubin.total [Mass/volume ] in Serum or PlasmaOrdered By: Matthew Leslie on 02-02-2023 Bilirubin [Mass/Vol] 0.6 mg/dL Normal 0.3-1.0 [facility] Comment on above: Performed By: #### C UU, UHCG, MARICRUZ, URDS #### [facility] [address] [place] [address] [place] Calcium [Mass/volume] in Ser um or PlasmaOrdered By: Matthew Leslie on 02-02-2023 Calcium [Mass/Vol] 9.5 mg/dL Normal 8.6-10.3 [facility] Comment on above: Performed By: #### C UU, UHCG, ADDONUAPLUS, URDS #### [facility] [address] [place] [id number] [place] Cannabinoids [Presence] in U rine by Screen methodOrdered By: Matthew Leslie on 02-02-2023 Cannabinoids Screen Ql (U) Negative Negative [facility] Comment on above: These are unconfirme d results and should not be used for legal purposes. Drug Cut-Off Concentration: AMPH 1000 ng/mL PONCHO 200 ng/mL KRISTAN 200 ng/mL COCM 300 ng/mL OP 300 ng/mL PCP 25 ng/mL THC 20 ng/mL Carbon dioxide, total [Moles /volume] in Serum or PlasmaOrdered By: Matthew Leslie on 02-02-2023 CO2 [Moles/Vol] 28.3 mmol/L Normal 21.0-31.0 [facility] Comment on above: Performed By: #### C UU, UHCG, ADDONUAPLUS, URDS #### [address] Casts typing in urine sedime nt by light microscopyOrdered By: Matthew Leslie on 02-02-2023 Casts LM Nom (Urine sed) None seen [LPF] None Seen [facility] Chloride [Moles/volume] in S barbra or PlasmaOrdered By: Matthew Leslie on 02-02-2023 Chloride [Moles/Vol] 107 mmol/L Normal 98-107 [facility] Comment on above: Performed By: #### C UU, UHCG, ADDONUAPLUS, URDS #### [address] Complete Blood Count Auto Di ffon 02-02-2023 Mean Corpuscular HGB Conc 33.6 g/dL Normal 32.0-35.0 [facility] Comment on above: Performed By: #### E TANYA, HEPATIC, TSH3 wRFLX, CBC, CMP, [id number] #### [address] Monocytes/100 WBC (Bld) 17.83 % Normal 0.00-20.00 [facility] Comment on above: Performed By: #### E TANYA, HEPATIC, TSH3 wRFLX, CBC, CMP, [id number] #### [address] NRBC% 0.0 /100{WBC} Normal 0-0.5 [facility] Comment on above: Performed By: #### E TANYA, HEPATIC, TSH3 wRFLX, CBC, CMP, [id number] #### [facility] [address] Comprehensive Metabolic Pane haile 02-02-2023 Albumin [Mass/Vol] 4.6 g/dL Normal 3.5-5.7 [facility] Comment on above: Performed By: #### C UU, UHCG, ADDONUAPLUS, URDS #### [address] Creatinine Clr Calc Pharmacy 76.05 Normal [facility] Comment on above: Result Comment: PERF ORMED BY: [place] [address] PATHOLOGIST SPLITTER OPERATOR MOISES VELASCO M.D. Performed By: #### C UU, UHCG, ADDONUAPLUS, URDS #### [address] GFR/1.73 sq M.predicted MDRD (S/P/Bld) [Vol rate/Area] mL/min/{1.73_m2} Normal [facility] Comment on above: Performed By: #### C UU, UHCG, ADDONUAPLUS, URDS #### [address] Creatinine [Mass/volume] in Serum or PlasmaOrdered By: Mtathew Leslie on 02-02-2023 Creatinine [Mass/Vol] 1.14 mg/dL Normal 0.60-1.20 [facility] Comment on above: Performed By: #### C UU, UHCG, ADDONUAPLUS, URDS #### [place] [address] [place] Dipstick and Microscopicon 0 02-02-2023 Appearance (U) Cloudy Critically abnormal Clear [facility] Comment on above: Order Comment: Name Collection Type:: Clean-Voided Midstream Performed By: #### C UU, UHCG, ADDONUAPLUS, URDS #### [address] Bacteria,Urine 1+ High None Seen [facility] Comment on above: Order Comment: Name Collection Type:: Clean-Voided Midstream Performed By: #### C UU, UHCG, ADDONUAPLUS, URDS #### [address] Bilirubin,Urine Negative Normal Negative The [facility] includes [facility] Comment on above: Order Comment: Name Collection Type:: Clean-Voided Midstream Performed By: #### C UU, UHCG, ADDONUAPLUS, URDS #### [address] Glucose Ql (U) Normal Normal Normal [facility] Comment on above: Order Comment: Name Collection Type:: Clean-Voided Midstream Performed By: #### C UU, UHCG, ADDONUAPLUS, URDS #### [address] Hyaline Casts,Urine 0-1 Normal 0-1 [facility] Comment on above: Order Comment: Name Collection Type:: Clean-Voided Midstream Performed By: #### C UU, UHCG, ADDONUAPLUS, URDS #### [address] Ketones Ql (U) 2+ High Negative [facility] Comment on above: Order Comment: Name Collection Type:: Clean-Voided Midstream Performed By: #### C UU, UHCG, ADDONUAPLUS, URDS #### [address] Leukocyte esterase Test strip Ql (U) 2+ High Negative [facility] Comment on above: Order Comment: Name Collection Type:: Clean-Voided Midstream Performed By: #### C UU, UHCG, ADDONUAPLUS, URDS #### [place] [address] [place] Nitrite,Urine Negative Normal Negative [facility] Comment on above: Order Comment: Name Collection Type:: Clean-Voided Midstream Performed By: #### C UU, UHCG, ADDONUAPLUS, URDS #### [address] Occult Blood,Urine 3+ High Negative [facility] Comment on above: Order Comment: Name Collection Type:: Clean-Voided Midstream Performed By: #### C UU, UHCG, ADDONUAPLUS, URDS #### [address] Other Casts,Urine None Seen Normal None Seen [facility] Comment on above: Order Comment: Name Collection Type:: Clean-Voided Midstream Performed By: #### C UU, UHCG, ADDONUAPLUS, URDS #### [address] RBC,Urine 10-19 High 0-4 [facility] Comment on above: Order Comment: Name Collection Type:: Clean-Voided Midstream Performed By: #### C UU, UHCG, ADDONUAPLUS, URDS #### [address] Specificy [place],Urine 1.027 Normal 1.001-1.030 [facility] Comment on above: Order Comment: Name Collection Type:: Clean-Voided Midstream Performed By: #### C UU, UHCG, ADDONUAPLUS, URDS #### [address] Squamous Epithelial Cell,Urine 3-4 High 0-2 [facility] Comment on above: Order Comment: Name Collection Type:: Clean-Voided Midstream Performed By: #### C UU, UHCG, ADDONUAPLUS, URDS #### [address] Urobilinogen,Urine Normal Normal Normal [facility] Comment on above: Order Comment: Name Collection Type:: Clean-Voided Midstream Performed By: #### C UU, UHCG, ADDONUAPLUS, URDS #### [place] [address] [place] WBC,Urine 10-19 High 0-4 [facility] Comment on above: Order Comment: Name Collection Type:: Clean-Voided Midstream Performed By: #### C UU, UHCG, ADDONUAPLUS, URDS #### [place] [address] [place] Yeast,Urine None Seen Normal None Seen [facility] Comment on above: Order Comment: Name Collection Type:: Clean-Voided Midstream Performed By: #### C UU, UHCG, ADDONUAPLUS, URDS #### [place] [address] [place] Drug Screen,Urineon 02-03-20 Amphetamine Screen,Urine Negative Normal Negative [facility] Comment on above: Performed By: #### C UU, UHCG, ADDONUAPLUS, URDS #### [address] Barbiturate Screen,Urine Negative Normal Negative [facility] Comment on above: Performed By: #### C UU, UHCG, ADDONUAPLUS, URDS #### [place] [address] [place] Benzodiazepines Screen,Urine Negative Normal Negative [facility] Comment on above: Performed By: #### C UU, UHCG, ADDONUAPLUS, URDS #### [address] Cannabinoid Screen,Urine Negative Normal Negative [facility] Comment on above: Result Comment: Thes e are unconfirmed results and should not be used for legal purposes. Drug Cut-Off Concentration: AMPH 1000 ng/mL PONCHO 200 ng/mL KRISTAN 200 ng/mL COCM 300 ng/mL OP 300 ng/mL PCP 25 ng/mL THC 20 ng/mL PERFORMED BY: [place] [address] PATHOLOGIST SPLITTER OPERATOR MOISES VELASCO M.D. Performed By: #### C UU, UHCG, ADDONUAPLUS, URDS #### [place] [address] [place] Cocaine Screen,Urine Negative Normal Negative [facility] Comment on above: Performed By: #### C UU, UHCG, ADDONUAPLUS, URDS #### [facility] [address] Opiate Screen,Urine Negative Normal Negative [facility] Comment on above: Performed By: #### C UU, UHCG, ADDONUAPLUS, URDS #### [facility] [address] Phencyclidine Screen,Urine Negative Normal Negative [facility] Comment on above: Performed By: #### C UU, UHCG, ADDONUAPLUS, URDS #### [facility] [address] Erythrocyte distribution wid th [Ratio] by Automated countOrdered By: Matthew Leslie on 02-02-2023 Erythrocyte distribution width (RBC) [Ratio] 12.9 % Normal 11.9-15.3 [facility] Comment on above: Performed By: #### E TANYA, HEPATIC, TSH3 wRFLX, CBC, CMP, [id number] #### [facility] [address] Erythrocytes [#/volume] in B lood by Automated countOrdered By: Matthew Leslie on 02-02-2023 RBC (Bld) [#/Vol] 4.70 10*6/uL Normal 3.60-5.00 [facility] Comment on above: Performed By: #### E TANYA, HEPATIC, TSH3 wRFLX, CBC, CMP, [id number] #### [facility] [address] [place] [address] Ethanol [Mass/volume] in Ser um or PlasmaOrdered By: Matthew Leslie on 02-02-2023 Ethanol [Mass/Vol] mg/dL Normal [facility] Comment on above: Performed By: #### E TANYA, HEPATIC, TSH3 wRFLX, CBC, CMP, [id number] #### [facility] [address] Ethanol [Mass/Vol] TNP [facility] Comment on above: Test not performed Ethyl Alcohol Profileon Percent Ethanol Not performed Normal [facility] Comment on above: Result Comment: PERF ORMED BY: [place] [address] PATHOLOGIST SPLITTER OPERATOR MOISES VELASCO M.D. Performed By: #### E TANYA, HEPATIC, TSH3 wRFLX, CBC, CMP, [id number] #### [facility] [address] [place] [id number] [facility] Glucose [Mass/volume] in Ser um or PlasmaOrdered By: Matthew Leslie on 02-02-2023 Glucose [Mass/Vol] 98 mg/dL Normal 70-100 [facility] Comment on above: ADA recommended refe rence rangeRandom Glucose Reference Range is dependent on time and content of last meal. Glucose of more than 200 mg/dL in a nonstressed, ambulatory subject supports the diagnosis of Diabetes Mellitus. Result Comment: [place] om Glucose Reference Range is dependent on time and content of last meal. Glucose of more than 200 mg/dL in a nonstressed, ambulatory subject supports the diagnosis of Diabetes Mellitus. ADA recommended reference range Performed By: #### C UU, UHCG, ADDONUAPLUS, URDS #### [facility] [address] [place] [address] [place] HCG ( test) IA.rapi d Ql (U)Ordered By: Matthew Leslie on 02-02-2023 HCG ( test) Ql (U) Negative [facility] HCG,Urineon 02-02-2023 Beta HCG ( test) Ql (U) Negative Normal [facility] Comment on above: Order Comment: Name Collection Type:: Clean-Voided Midstream Result Comment: PERF ORMED BY: [facility] [address] [place] [address] PATHOLOGIST SPLITTER OPERATOR MOISES VELASCO M.D. Performed By: #### C UU, UHCG, ADDONUAPLUS, URDS #### [facility] [address] [place] [address] [facility] Hematocrit [Volume Fraction] of Blood by Automated countOrdered By: Matthew Leslie on 02-02-2023 Hematocrit (Bld) [Volume fraction] 41.1 % Normal 34.0-46.4 [facility] Comment on above: Performed By: #### E TANYA, HEPATIC, TSH3 wRFLX, CBC, CMP, [id number] #### [facility] [address] Hemoglobin [Mass/volume] in BloodOrdered By: Matthew Leslie on 02-02-2023 Hemoglobin (Bld) [Mass/Vol] 13.8 g/dL Normal 11.8-15.4 [facility] Comment on above: Performed By: #### E TANYA, HEPATIC, TSH3 wRFLX, CBC, CMP, [id number] #### [facility] [address] Hepatic Panelon 02-02-2023 Bilirubin,Indirect 0.5 mg/dL Normal [facility] Comment on above: Performed By: #### C UU, UHCG, ADDONUAPLUS, URDS #### [address] Bilirubin.indirect [Mass/Vol] 0.10 mg/dL Normal 0.03-0.18 [facility] Comment on above: Performed By: #### C UU, UHCG, ADDONUAPLUS, URDS #### [address] Ketones Auto test strip (U) [Mass/Vol]Ordered By: Matthew Leslie on 02-02-2023 Ketones (U) [Mass/Vol] 2+ Negative [facility] Leukocytes [#/volume] correc alberto for nucleated erythrocytes in Blood by Automated counOrdered By: Matthew Leslie on 02-02-2023 WBC corrected for nucl RBC Auto (Bld) [#/Vol] 7.6 10*3/uL 3.8-11.6 [facility] Leukocytes [#/volume] in Blo od by Automated countOrdered By: Matthew Leslie on 02-02-2023 WBC (Bld) [#/Vol] 7.6 10*3/uL Normal 3.8-11.6 [facility] Comment on above: Performed By: #### E TANYA, HEPATIC, TSH3 wRFLX, CBC, CMP, [id number] #### [address] Lymphocytes [#/volume] in Bl ood by Automated countOrdered By: Matthew Leslie on 02-02-2023 Lymphocytes (Bld) [#/Vol] 2.7 10*3/uL Normal 1.00-4.8 [facility] Comment on above: Performed By: #### E TANYA, HEPATIC, TSH3 wRFLX, CBC, CMP, [id number] #### [address] Lymphocytes/100 leukocytes i n Blood by Automated countOrdered By: Matthew Leslie on 02-02-2023 Lymphocytes/100 WBC (Bld) 36.0 % Normal . [facility] Comment on above: Performed By: #### E TANYA, HEPATIC, TSH3 wRFLX, CBC, CMP, [id number] #### [address] MCH [Entitic mass] by Automa alberto countOrdered By: Matthew Leslie on 02-02-2023 MCH (RBC) [Entitic mass] 29.4 pg Normal 24.7-34.3 [facility] Comment on above: Performed By: #### E TANYA, HEPATIC, TSH3 wRFLX, CBC, CMP, [id number] #### [address] MCHC Auto (RBC) [Mass/Vol]Or dered By: Matthew Leslie on 02-02-2023 MCHC (RBC) [Mass/Vol] 33.6 g/dL 32.0-35.0 [facility] MCV [Entitic volume] by Auto mated countOrdered By: Matthew Leslie on 02-02-2023 MCV (RBC) [Entitic vol] 87.6 fL Normal 80-100 [facility] Comment on above: Performed By: #### E TANYA, HEPATIC, TSH3 wRFLX, CBC, CMP, [id number] #### [address] Monocyte distribution width [Entitic volume] in Blood by AutomatedOrdered By: Matthew Leslie on 02-02-2023 Monocyte distribution width Auto (Bld) [Entitic vol] 17.83 % 0.00-20.00 [facility] Neutrophils [#/volume] in Bl ood by Automated countOrdered By: Matthew Leslie on 02-02-2023 Neutrophils (Bld) [#/Vol] 4.2 10*3/uL Normal 1.8-7.7 [facility] Comment on above: Performed By: #### E TANYA, HEPATIC, TSH3 wRFLX, CBC, CMP, [id number] #### [facility] [address] [place] [id number] [facility] Nitrite Test strip Ql (U)Ord ered By: Matthew Leslie on 02-02-2023 Nitrite Ql (U) Negative Negative [facility] No Panel InformationOrdered By: Matthew Leslie on 02-02-2023 Estimated GFR (CKD-EPI) > 60.0 mL/Min [facility] [facility] Creatinine Clearance (Chem 76.05 [facility] Nucleated erythrocytes [Pres ence] in Blood by Automated countOrdered By: Matthew Leslie on 02-02-2023 Nucleated RBC Auto Ql (Bld) 0.0 /100{WBC} 0-0.5 [facility] Opiates [Presence] in Urine by Screen methodOrdered By: Matthew Leslie on 02-02-2023 Opiates Screen Ql (U) Negative Negative [facility] Phencyclidine Screen Ql (U)O rdered By: Matthew Leslie on 02-02-2023 Phencyclidine Ql (U) Negative Negative [facility] Platelet mean volume [Entiti c volume] in Blood by Automated countOrdered By: Matthew Leslie on 02-02-2023 Platelet mean volume (Bld) [Entitic vol] 9.2 fL Normal 6.3-10.7 [facility] Comment on above: Performed By: #### E TANYA, HEPATIC, TSH3 wRFLX, CBC, CMP, [id number] #### [facility] [address] [id number] [place] Platelets [#/volume] in Bloo d by Automated countOrdered By: Matthew Leslie on 02-02-2023 Platelets (Bld) [#/Vol] 322 10*3/uL Normal 150-450 [facility] Comment on above: Performed By: #### E TANYA, HEPATIC, TSH3 wRFLX, CBC, CMP, [id number] #### [facility] [address] Potassium [Moles/volume] in Serum or PlasmaOrdered By: Matthew Leslie on 02-02-2023 Potassium [Moles/Vol] 3.8 mmol/L Normal 3.5-5.1 [facility] Comment on above: Performed By: #### C UU, UHCG, ADDONUAPLUS, URDS #### [facility] [address] [place] [address] Protein [Mass/volume] in Ser um or PlasmaOrdered By: Matthew Leslie on 02-02-2023 Protein [Mass/Vol] 7.8 g/dL Normal 6.4-8.9 [facility] Comment on above: Performed By: #### C UU, UHCG, ADDONUAPLUS, URDS #### [facility] [address] [place] [address] Serum globulin measurement b y calculation (mass/volume)Ordered By: Matthew Leslie on 02-02-2023 Globulin (S) [Mass/Vol] 3.2 g/dL Normal [facility] Comment on above: Performed By: #### C UU, UHCG, ADDONUAPLUS, URDS #### [facility] [address] Serum or plasma albumin/glob ulin mass ratioOrdered By: Matthew Leslie on 02-02-2023 Albumin/Globulin [Mass ratio] 1.4 {ratio} Normal [facility] Comment on above: Performed By: #### C UU, UHCG, ADDONUAPLUS, URDS #### [facility] [address] [place] [address] Serum or plasma anion gap de terminationOrdered By: Matthew Leslie on 02-02-2023 Anion gap [Moles/Vol] 9.5 mmol/L Normal 6.0-15.0 [facility] Comment on above: Performed By: #### C UU UHCG, BELIA ALCANTARA #### [facility] [address] [place] [address] Serum or plasma non-glucuron idated bilirubin measurement (mass/volume)Ordered By: Matthew Leslie on 02-02-2023 Bilirubin.indirect [Mass/Vol] 0.5 mg/dL [facility] Sodium [Moles/volume] in Ser um or PlasmaOrdered By: Matthew Leslie on 02-02-2023 Sodium [Moles/Vol] 141 mmol/L Normal 136-145 [facility] Comment on above: Performed By: #### C UUJULIANECG, BELIA ALCANTARA #### [facility] [address] [place] [address] Specific gravity Auto test s trip (U) [Rel density]Ordered By: Matthew Leslie on 02-02-2023 Specific gravity (U) [Rel density] 1.027 1.001-1.030 [facility] Squamous epithelial cells de tection in urine sediment by light microscopyOrdered By: Matthew Leslie on 02-02-2023 Epithelial cells.squamous LM Ql (Urine sed) 3-4 [HPF] 0-2 [facility] Thyroid Stim Hormone w/Rflxo n 02-02-2023 Thyroid Stim Hormone w/Rflx 3.74 u[iU]/mL Normal 0.45-5.33 [facility] Comment on above: Performed By: #### C UU, UHCG, MARICRUZ URCARLOS MANUEL #### [facility] [address] [place] [address] Thyrotropin [Units/volume] i n Serum or PlasmaOrdered By: Matthew Leslie on 02-02-2023 TSH Qn 3.74 m[IU]/L 0.45-5.33 [facility] Urea nitrogen [Mass/volume] in Serum or PlasmaOrdered By: Matthew Leslie on 02-02-2023 Urea nitrogen [Mass/Vol] 11 mg/dL Normal 7-25 [facility] Comment on above: Performed By: #### C UU, UHCG, ADDONUAPLUS, URDS #### [facility] [address] Urine Cultureon 02-02-2023 Bacteria identified Cx Nom (U) No Growth 2 Days PERFORMED BY: [place] [address] PATHOLOGIST SPLITTER OPERATOR MOISES VELASCO M.D. Normal [facility] Comment on above: Performed By: #### C UU, UHCG, ADDONUAPLUS, URDS #### [facility] [address] Urine bacteria detection by automated methodOrdered By: Matthew Leslie on 02-02-2023 Bacteria Auto Ql (U) 1+ None Seen [facility] Urine clarity by refractomet ry automatedOrdered By: Matthew Leslie on 02-02-2023 Clarity Refractometry automated (U) Cloudy Clear [facility] Urine culture routineOrdered By: Matthew Leslie on 02-02-2023 Bacteria identified Cx Nom (U) No Growth 2 Days [facility] Urine glucose measurement by automated test strip (mass/volume)Ordered By: Matthew Leslie on 02-02-2023 Glucose Auto test strip (U) [Mass/Vol] Normal mg/dL Normal [facility] Urine hemoglobin detection b y automated test stripOrdered By: Matthew Leslie on 02-02-2023 Hemoglobin Auto test strip Ql (U) 3+ Negative [facility] Urine leukocyte esterase det ection by automated test stripOrdered By: Matthew Leslie on 02-02-2023 Leukocyte esterase Auto test strip Ql (U) 2+ Negative [facility] Urine pH measurement by auto mated test stripOrdered By: Matthew Leslie on 02-02-2023 pH (U) 6.0 [pH] Normal 5.0-9.0 [facility] Comment on above: Order Comment: Name Collection Type:: Clean-Voided Midstream Performed By: #### C UU, UHCG, ADDONUAPLUS, URDS #### [facility] [address] Urine protein measurement by automated test strip (mass/volume)Ordered By: Matthew Leslie on 02-02-2023 Protein (U) [Mass/Vol] 30 mg/dL High Negative [facility] Comment on above: Order Comment: Name Collection Type:: Clean-Voided Midstream Performed By: #### C ASIM BARONE, BELIA ALCANTARA #### [facility] [address] [place] [address] Urobilinogen Auto test strip (U) [Mass/Vol]Ordered By: Matthew Leslie on 02-02-2023 Urobilinogen (U) [Mass/Vol] Normal mg/dL Normal [facility] Vitamin D 25 Hydroxy Totalon 02-02-2023 Vitamin D 25 Hydroxy Total 54.2 ng/mL Normal 30-100 [facility] Comment on above: Result Comment: MABLE MIN D STATUS 25(OH)VITAMIN D RANGE (ng/mL) Deficient <20 Insufficient 20 to <30 Sufficient 30 to 100 Reference: Nimisha Benson, Luisa MCCRACKEN, et al. Evaluation,treatment, and prevention of vitamin D deficiency; an Endocrine Society clinical practice guideline. JCEM. 2010; 96(7):1911-30. PERFORMED BY: [place] [address] PATHOLOGIST SPLITTER OPERATOR MOISES VELASCO M.D. Performed By: #### C ASIM BARONE, BELIA ALCANTARA #### [facility] [address] [place] [address] Vitamin D+Metabolites [Mass/ volume] in Serum or PlasmaOrdered By: Matthew Leslie on 02-02-2023 Vitamin D+Metabolites [Mass/Vol] 54.2 ng/mL 30-100 [facility] Comment on above: VITAMIN D STATUS 25( OH)VITAMIN D RANGE (ng/mL) Deficient <20 Insufficient 20 to <30Sufficient 30 to 100Reference: Nimisha Benson, Luisa MCCRACKEN, et al. Evaluation,treatment, and prevention of vitamin D deficiency; an Endocrine Society clinical practice guideline. JCEM. 2010; 96(7):1911-30. Yeast detection in urine sed iment by light microscopyOrdered By: Matthew Leslie on 02-02-2023 Yeast LM Ql (Urine sed) None seen [HPF] None Se en [facility] AMNISUREon 09-16-2022 AMNISURE Positive Abnormal NEGATIVE [facility] Comment on above: Performed By: #### A MNI #### [facility] [address] [place] [address] Dr. Adrianna Caldera CBC AUTO DIFFon 09-16-2022 BASO # 0.1 103/ul Normal 0.0-0.1 [facility] Comment on above: Performed By: #### C BC #### [facility] [address] [place] [address] Dr. Adrianna Caldera Basophils/100 WBC (Bld) 0.4 % Normal 0.2-2.0 [facility] Comment on above: Performed By: #### C BC #### [facility] [address] [place] [address] Dr. Adrianna Caldera EO # 0.0 103/ul Normal 0.0-0.7 [facility] Comment on above: Performed By: #### C BC #### [facility] [address] [place] [address] Dr. Adrianna Caldera Eosinophils/100 WBC (Bld) 0.1 % Critically low 0.9-7.0 [facility] Comment on above: Performed By: #### C BC #### [facility] [address] [place] [address] Dr. Adrianna Caldera Erythrocyte distribution width (RBC) [Ratio] 12.3 % Normal 11.0-15.0 [facility] Comment on above: Performed By: #### C BC #### [facility] [address] [place] [address] Dr. Adrianna Caldera Hematocrit (Bld) [Volume fraction] 38.3 % Normal 36.0-48.0 [facility] Comment on above: Performed By: #### C BC #### [facility] [address] [place] [address] Dr. Adrianna Caldera Hemoglobin (Bld) [Mass/Vol] 12.8 g/dL Normal 12.0-16.0 [facility] Comment on above: Performed By: #### C BC #### [facility] [address] [place] [address] Dr. Adrianna Caldera IG # 0.20 10e3/ul Critically high 0.00-0.03 [facility] Comment on above: Performed By: #### C BC #### [facility] [address] [place] [address] Dr. Adrianna Caldera IG % 1.0 % Critically high 0.0-0.5 [facility] Comment on above: Performed By: #### C BC #### [facility] [address] [place] [address] Dr. Adrianna Caldera LYMPH # 1.5 103/ul Normal 1.2-3.8 [facility] Comment on above: Performed By: #### C BC #### [facility] [address] [place] [address] Dr. Adrianna Caldera Lymphocytes/100 WBC (Bld) 7.7 % Critically low 20.5-60.0 [facility] Comment on above: Performed By: #### C BC #### [facility] [address] [place] [address] Dr. Adrianna Caldera MANUAL DIFF REQ NO Normal [facility] Comment on above: Performed By: #### C BC #### [facility] [address] [place] [address] Dr. Adrianna Caldera MCH (RBC) [Entitic mass] 28.9 pg Normal 26.7-34.0 [facility] Comment on above: Performed By: #### C BC #### [facility] [address] [place] [address] Dr. Adrianna Caldera MCHC (RBC) [Mass/Vol] 33.4 g/dL Normal 29.9-35.2 [facility] Comment on above: Performed By: #### C BC #### [facility] [address] [place] [address] Dr. Adrianna Caldera MCV (RBC) [Entitic vol] 86.5 fL Normal 81.0-99.0 [facility] Comment on above: Performed By: #### C BC #### [facility] [address] [place] [address] Dr. Adrianna Caldera MONO # 0.3 103/ul Normal 0.3-0.8 [facility] Comment on above: Performed By: #### C BC #### [facility] [address] [place] [address] Dr. Adrianna Caldera Monocytes/100 WBC (Bld) 1.7 % Normal 1.7-12.0 [facility] Comment on above: Performed By: #### C BC #### [facility] [address] [place] [address] Dr. Adrianna Caldera NEUT # 17.5 103/ul Critically high 1.4-6.5 [facility] Comment on above: Performed By: #### C BC #### [facility] [address] [place] [address] Dr. Adrianna Caldera Neutrophils/100 WBC (Bld) 89.1 % Critically high 43.0-75.0 [facility] Comment on above: Performed By: #### C BC #### [facility] [address] [place] [address] Dr. Adrianna Caldera Platelet mean volume (Bld) [Entitic vol] 10.7 fL Normal 9.5-13.5 [facility] Comment on above: Performed By: #### C BC #### [facility] [address] [place] [address] Dr. Adrianna Caldera PLT 356 103/ul Normal 150-450 [facility] Comment on above: Performed By: #### C BC #### [facility] [address] [place] [address] Dr. Adrianna Caldera RBC 4.43 106/ul Normal 4.20-5.40 [facility] Comment on above: Performed By: #### C BC #### [facility] [address] [place] [address] Dr. Adrianna Caldera WBC 19.6 103/ul Critically high 4.0-11.0 [facility] Comment on above: Performed By: #### C BC #### [facility] [address] [place] [address] Dr. Adrianna Caldera UA (CLEAN/CATCH) MANAGER OF COMPLIANCE/MICRO I F IND.on 09-16-2022 Bilirubin Ql (U) Negative Normal NEGATIVE [facility] Comment on above: Performed By: #### U ACSIND #### [facility] [address] [address] [address] Adrianna Caldera Clarity (U) CLEAR Normal CLEAR [facility] Comment on above: Performed By: #### U ACSIND #### [facility] [address] [address] [address] Adrianna Caldera Color (U) LT. YELLOW Normal YELLOW [facility] Comment on above: Performed By: #### U ACSIND #### [facility] [address] [address] [address] Adrianna Caldera Glucose Ql (U) Negative Normal NEGATIVE [facility] Comment on above: Performed By: #### U ACSIND #### [facility] [address] [place] [address] Dr. Adrianna Caldera Hemoglobin Ql (U) Negative Normal NEGATIVE [facility] Comment on above: Performed By: #### U ACSIND #### [facility] [address] [address] [address] Adrianna Caldera Ketones Ql (U) Negative Normal NEGATIVE [facility] Comment on above: Performed By: #### U ACSIND #### [facility] [address] [address] [address] Adrianna Caldera LEUKOCYTES Negative Normal NEGATIVE [facility] Comment on above: Performed By: #### U ACSIND #### [facility] [address] [address] [address] Adrianna Caldera Nitrite Ql (U) Negative Normal NEGATIVE [facility] Comment on above: Performed By: #### U ACSIND #### [facility] [address] [address] [address] Adrianna Caldera pH (U) 5.5 [pH] Normal 5-9 [facility] Comment on above: Performed By: #### U ACSIND #### [facility] [address] [place] [address] Dr. Adrianna Caldera SPEC GRAVITY 1.010 Normal 1.005-<=1.0 25 [facility] Comment on above: Performed By: #### U ACSIND #### [facility] [address] [place] [address] Dr. Adrianna Caldera UA PROTEIN Negative Normal NEGATIVE/ TRACE [facility] Comment on above: Performed By: #### U ACSIND #### [facility] [address] [place] [address] Dr. Adrianna Caldera UR MICRO IND NOT INDICATED Normal [facility] Comment on above: Performed By: #### U ACSIND #### [facility] [address] [place] [address] Dr. Adrianna Caldera Urobilinogen Qn (U) 0.2 {Micheal'U}/dL Normal 0.2 - 1. 0 [facility] Comment on above: Performed By: #### U ACSIND #### [facility] [address] [place] [address] Dr. Adrianna Caldera US PREG GROWTHon 09-16-2022 [...] KAROL SIDDIQUI Date: 2022-09-16 15:19 Normal [facility] UA (CLEAN/CATCH) MANAGER OF COMPLIANCE/MICRO I F IND.on 09-04-2022 Bilirubin Ql (U) Negative Normal NEGATIVE [facility] Comment on above: Performed By: #### U ACSIND ####[facility] [address] [place], [place] [address]Dr. Adrianna Caldera Clarity (U) CLEAR Normal CLEAR [facility] Comment on above: Performed By: #### U ACSIND ####[facility] [address] [place], [place] [address]Dr. Adrianna Caldera Color (U) LT. YELLOW Normal YELLOW [facility] Comment on above: Performed By: #### U ACSIND ####[facility] [address] [place], [place] [address]Dr. Adrianna Caldera Glucose Ql (U) Negative Normal NEGATIVE [facility] Comment on above: Performed By: #### U ACSIND ####[facility] [address] [place], [place] [address]Dr. Adrianna Caldera Hemoglobin Ql (U) Negative Normal NEGATIVE [facility] Comment on above: Performed By: #### U ACSIND ####[facility] [address] [place], [place] [address]Dr. Adrianna Caldera Ketones Ql (U) Negative Normal NEGATIVE [facility] Comment on above: Performed By: #### U ACSIND ####[facility] [address] [place], [place] [address]Dr. Adrianna Caldera LEUKOCYTES Negative Normal NEGATIVE [facility] Comment on above: Performed By: #### U ACSIND ####[facility] [address] [place], [place] [address]Dr. Adrianna Caldera Nitrite Ql (U) Negative Normal NEGATIVE [facility] Comment on above: Performed By: #### U ACSIND ####[facility] [address] [place], [place] [address]Dr. Adrianna Caldera pH (U) 7.5 [pH] Normal 5-9 [facility] Comment on above: Performed By: #### U ACSIND ####[facility] [address] [place], [place] [address]Dr. Adrianna Caldera SPEC GRAVITY 1.010 Normal 1.005-<=1.0 25 [facility] Comment on above: Performed By: #### U ACSIND ####[facility] [address] [address]Dr. Adrianna Caldera UA PROTEIN Negative Normal NEGATIVE/ TRACE [facility] Comment on above: Performed By: #### U ACSIND ####[facility] [address] [address]Dr. Adrianna Caldera UR MICRO IND NOT INDICATED Normal [facility] Comment on above: Performed By: #### U ACSIND ####[facility] [address] [address]Dr. Adrianna Werner Urobilinogen Qn (U) 0.2 {Micheal'U}/dL Normal 0.2 - 1. 0 [facility] Comment on above: Performed By: #### U ACSIND ####[facility] [address] [address]Dr. Adrianna Werner GTT 3 HR PREGon 08-30-2022 Glucose [Mass/Vol] 88 mg/dL Normal 74-106 [facility] Comment on above: Performed By: #### G TT3P ####[facility] [address] [place], [place] [address]Dr. Adrianna Caldera Glucose [Mass/Vol] 167 mg/dL Normal [facility] Comment on above: Performed By: #### G TT3P ####[facility] [address] [address]Dr. Adrianna Caldera Glucose [Mass/Vol] 136 mg/dL Normal [facility] Comment on above: Performed By: #### G TT3P ####[facility] [address] [place], [place] [address]Dr. Adrianna Caldera Glucose [Mass/Vol] 144 mg/dL Normal [facility] Comment on above: Performed By: #### G TT3P ####[facility] [address] [place], [place] [address]Dr. Jemimabenito Caldera US PREG PLACENTAon US PREG PLACENTA [...] KAROL SIDDIQUI Date: 2022-08-17 15:46 Normal [facility] UA (CLEAN/CATCH) MANAGER OF COMPLIANCE/MICRO I F IND.on 07-21-2022 Bilirubin Ql (U) Negative Normal NEGATIVE [facility] Comment on above: Performed By: #### U ACSIND ####[facility] [address] [place], [place] [address]Dr. Adrianna Caldera Clarity (U) CLEAR Normal CLEAR [facility] Comment on above: Performed By: #### U ACSIND ####[facility] [address] [place], [place] [address]Dr. Adrianna Caldera Color (U) LT. YELLOW Normal YELLOW [facility] Comment on above: Performed By: #### U ACSIND ####[facility] [address] [place], [place] [address]Dr. Adrianna Caldera Glucose Ql (U) Negative Normal NEGATIVE [facility] Comment on above: Performed By: #### U ACSIND ####[facility] [address] [place], [place] [address]Dr. Adrianna Caldera Hemoglobin Ql (U) Negative Normal NEGATIVE [facility] Comment on above: Performed By: #### U ACSIND ####[facility] [address] [place], [place] [address]Dr. Adrianna Caldera Ketones Ql (U) Negative Normal NEGATIVE [facility] Comment on above: Performed By: #### U ACSIND ####[facility] [address] [place], [place] [address]Dr. Adrianna Caldera LEUKOCYTES Negative Normal NEGATIVE [facility] Comment on above: Performed By: #### U ACSIND ####[facility] [address] [place], [place] [address]Dr. Adrianna Caldera Nitrite Ql (U) Negative Normal NEGATIVE [facility] Comment on above: Performed By: #### U ACSIND ####[facility] [address] [place], [place] [address]Dr. Yilan Caldera pH (U) 7.0 [pH] Normal 5-9 [facility] Comment on above: Performed By: #### U ACSIND ####[facility] [address] [id number]. Adrianna Caldera SPEC GRAVITY 1.010 Normal 1.005-<=1.0 25 [facility] Comment on above: Performed By: #### U ACSIND ####[facility] [address] [id number]. Adrianna Caldera UA PROTEIN Negative Normal NEGATIVE/ TRACE [facility] Comment on above: Performed By: #### U ACSIND ####[facility] [address] [address]Dr. Adrianna Caldera UR MICRO IND NOT INDICATED Normal [facility] Comment on above: Performed By: #### U ACSIND ####[facility] [address] [id number]. Adrianna Caldera Urobilinogen Qn (U) 0.2 {Micheal'U}/dL Normal 0.2 - 1. 0 [facility] Comment on above: Performed By: #### U ACSIND ####[facility] [address] [id number]. Adrianna Caldera US PREG ANATOMY SINGLEon US [...] authenticated by: KAROL SIDDIQUI Date: 2022-07-21 16:41 [facility] PAP ACOG PANEL 2: 23 to 31on 07-12-2022 . . Normal [facility] Comment on above: Performed By: #### [id number] ####[facility] [address] [address]DrAung Caldera Age Gdln ACOG Testing - [facility] Comment on above: Performed By: #### 4 [id number] ####[facility] [address] [address]DrAung Caldera DIAGNOSIS: Comment [facility] Comment on above: Result Comment: NEGA TIVE FOR INTRAEPITHELIAL LESION OR MALIGNANCY. Performed By: #### 4 [id number] ####[facility] [address] [address]DrAung Caldera Methodology: Comment Normal [facility] Comment on above: Result Comment: This liquid based ThinPrep(R) pap test was screened with the use of an image guided system. Performed By: #### [id number] ####[facility] [id number] [place] [address]DrAung Caldera Note: Comment [facility] Comment on above: Result Comment: The Pap smear is a screening test designed to aid in the detection of premalignant and malignant conditions of the uterine cervix. It is not a diagnostic procedure and should not be used as the sole means of detecting cervical cancer. Both false-positive and false-negative reports do occur. . Performed By: #### [id number] ####[facility] [id number] [address]Dr. Adrianna Caldera Performed by: Comment Normal [facility] Comment on above: Result Comment: [place] [employer] Supervisor (ASCP) Performed By: #### [id number] ####[facility] [id number] [address]Dr. Adrianna Caldera Reflex Criteria: Comment Normal [facility] Comment on above: Result Comment: The HPV DNA reflex criteria were not met with this specimen result therefore, no HPV testing was performed. . Performed By: #### [id number] ####[facility] [id number] [place], [place] [address]Dr. Adrianna Caldera Specimen adequacy: Comment Normal [facility] Comment on above: Result Comment: Sati sfactory for evaluation. No endocervical component is identified. Performed By: #### [id number] ####[facility] [id number] [place], [place] [address]Dr. Adrianna Caldera CHLAMYDIA/GONOCOCCUS ALEKSANDER (SW AB/URINE/PAPon 07-07-2022 Chlamydia trachomatis, ALEKSANDER Negative Normal Negative [facility] Comment on above: Performed By: #### C T/NGNA ####[facility] [id number] [place], [place] [address]Dr. Adrianna Caldera Neisseria gonorrhoeae, ALEKSANDER Negative Normal Negative [facility] Comment on above: Performed By: #### C T/NGNA ####[facility] [id number] [place], [place] [address]DrAung Caldera VAGINITIS/VAGINOSIS DNA PROB Scott 07-07-2022 Sherley species Negative Normal Negative [facility] Comment on above: Performed By: #### U ACSIND #### [facility] [address] [place] [address] Dr. Adrianna Caldera Gardnerella vaginalis Negative Normal Negative [facility] Comment on above: Performed By: #### U ACSIND #### [facility] [address] [place] [address] Dr. Adrianna Caldera Trichomonas vaginalis Negative Normal Negative [facility] Comment on above: Performed By: #### U ACSIND #### [facility] [address] [address] [address] Adrianna Caldera ABO/RHon 06-30-2022 ABO/Rh Negative [facility] CBC with Auto Differentialon 06-30-2022 Absolute Eos # 0.06 [facility] Absolute Immature Granulocyte 0.07 [facility] Absolute Lymph # 2.91 [facility] Absolute Rowan # 0.66 [facility] RS [facility] Basophils (Bld) [#/Vol] 0.04 10*3/uL [facility] Basophils/100 WBC (Bld) 0 % 0 - 2 % B ON [facility] Eosinophils/100 WBC (Bld) 1 % 1 - 4 % [facility] Hematocrit (Bld) [Volume fraction] 35.2 % Low 36.3 - 47.1 % [facility] Hemoglobin (Bld) [Mass/Vol] 11.9 g/dL 11.9 - 15.1 g/dL [facility] Immature granulocytes/100 WBC (Bld) 1 % High 0 [facility] Interpretation and review of laboratory results Abnormal [facility] Lymphocytes/100 WBC (Bld) 24 % 24 - 43 % [facility] MCH (RBC) [Entitic mass] 30.7 pg 25.2 - 33.5 pg [facility] MCHC (RBC) [Mass/Vol] 33.8 g/dL 28.4 - 34.8 g/dL [facility] MCV (RBC) [Entitic vol] 91.0 fL 82.6 - 102.9 fL [facility] Monocytes/100 WBC (Bld) 5 % 3 - 12 % B ON [facility] NRBC Automated 0.0 0.0 per 100 WBC [facility] Platelet distribution width (Bld) [Ratio] 12.2 % 11.8 - 14.4 % [facility] Platelet mean volume (Bld) [Entitic vol] 10.5 fL 8.1 - 13.5 fL [facility] Platelets (Bld) [#/Vol] 301 10*3/uL [facility] RBC (Bld) [#/Vol] 3.87 10*6/uL Low 3.95 - 5.1 1 m/uL [facility] Segmented neutrophils/100 WBC (Bld) 69 % High 36 - 65 % [facility] Segs Absolute 8.40 High [facility] WBC (Bld) [#/Vol] 12.1 10*3/uL High [facility] CMPon 06-30-2022 Albumin [Mass/Vol] 3.6 g/dL 3.5 - 5.2 g/dL [facility] Albumin/Globulin [Mass ratio] 1.1 {ratio} 1.0 - 2.5 [facility] ALP [Catalytic activity/Vol] 74 U/L 35 - 104 U/L [facility] ALT [Catalytic activity/Vol] 9 U/L 5 - 33 U/L [facility] Anion gap [Moles/Vol] 13 mmol/L 9 - 17 mmol/L [facility] AST [Catalytic activity/Vol] 18 U/L NINF - 32 U/L [facility] Bilirubin [Mass/Vol] mg/dL Low 0.3 - 1 .2 mg/dL [facility] Calcium [Mass/Vol] 9.5 mg/dL 8.6 - 10. 4 mg/dL [facility] Chloride [Moles/Vol] 101 mmol/L 98 - 10 7 mmol/L [facility] CO2 [Moles/Vol] 21 mmol/L 20 - 31 mmol/L [facility] Creatinine [Mass/Vol] 0.55 mg/dL 0.50 - 0.90 mg/dL [facility] GFR/1.73 sq M.predicted MDRD (S/P/Bld) [Vol rate/Area] - PINF [facility] Comment on above: These results are not [...] [Mass/Vol] 84 mg/dL 70 - 99 mg/dL [facility] Interpretation and review of laboratory results Abnormal [facility] Potassium [Moles/Vol] 3.8 mmol/L 3.7 - 5.3 mmol/L [facility] Protein [Mass/Vol] 6.9 g/dL 6.4 - 8.3 g/dL [facility] Sodium [Moles/Vol] 135 mmol/L 135 - 144 mmol/L [facility] Urea nitrogen [Mass/Vol] 8 mg/dL 6 - 20 mg/dL [facility] Urea nitrogen/Creatinine (Bld) [Mass ratio] 15 9 - 20 [facility] Lipaseon 06-30-2022 Lipase [Catalytic activity/Vol] 30 U/L 13 - 60 U/L [facility] Microscopic Urinalysison Bacteria, UA 2+ Abnormal None [facility] Epithelial Cells UA 0 TO 2 [facility] Interpretation and review of laboratory results Abnormal [facility] Mucus, UA 3+ Abnormal None [facility] RBC clumps Auto (Urine sed) [#/Area] 0 TO 2 [facility] WBC, UA 0 TO 2 [facility] Protime-INRon 06-30-2022 INR Coag (PPP) [Relative time] 1.0 {INR} [facility] Comment on above: Therapeutic Range: Moderate Anticoagulant Intensity: INR = 2.0-3.0 High Anticoagulant Intensity: INR = 2.5-3.5 PT Coag (PPP) [Time] 13.3 s [facility] Urinalysis with Reflex to Cu ltureon 06-30-2022 Bilirubin Urine Negative NEGATIVE [facility] Color, UA Yellow Yellow [facility] Glucose Auto test strip (U) [Mass/Vol] Negative NEGATIVE [facility] Interpretation and review of laboratory results Abnormal [facility] Ketones (U) [Mass/Vol] Negative NEGATIVE [facility] Leukocyte esterase Auto test strip Ql (U) Negative NEGATIVE [facility] Nitrite Auto test strip Ql (U) Negative NEGATIVE [facility] Protein (U) [Mass/Vol] 6.0 mg/dL 5.0 - 9.0 [facility] Protein (U) [Mass/Vol] Negative NEGATIVE [facility] Specific [place], UA 1.025 High 1.010 - 1.[address] [facility] Turbidity UA Clear Clear [facility] Urine Hgb Negative NEGATIVE [facility] Urobilinogen, Urine Normal Normal [facility] No Panel Informationon 06-17 Body mass index (BMI) [Percentile] Per age and sex 0.1 {percentile} Invalid Interpretation Code [employer] [id number] Per age and sex 0.1 {percentile} Invalid Interpretation Code [employer] HEP B SURFACE ANTIGEN SCREEN on 06-08-2022 HBsAg Screen Negative Normal Negative [facility] Comment on above: Performed By: #### U ACSIND #### [facility] [address] [address] [address] Adrianna Caldera HEPATITIS C VIRUS AB W/ REFL EX QUANTon 06-08-2022 HCV AB <0.1 Normal 0.0-0.9 [facility] Comment on above: Performed By: #### U ACSIND #### [facility] [address] [address] [address] Adrianna Caldera Interpretation: Comment Normal [facility] Comment on above: Result Comment: Nega tive Not infected with HCV, unless recent infection is suspected or other evidence exists to indicate HCV infection. Performed By: #### U ACSIND #### [facility] [address] [address] [address] Adrianna Caldera HIV 1 AND 2 WITH REFLEXon HIV Screen 4th Generation wRfx Non-Reactive Normal Non Reactive [facility] Comment on above: Result Comment: HIV Negative HIV-1/HIV-2 antibodies and HIV-1 p24 antigen were NOT detected. There is no laboratory evidence of HIV infection. Performed By: #### U ACSIND #### [facility] [address] [place] [address] Dr. Adrianna Caldera RPR QUANTon 06-08-2022 Rapid Plasma Reagin, Quant Non-Reactive Normal NonRea<1:1 [facility] Comment on above: Result Comment: Plea se Note: This test does not meet current guidelines for screening and diagnosis of syphilis. This test is intended for following treatment response in patients being treated for syphilis infection. To screen for syphilis infection, a reflex cascade that includes both RPR and a treponema-specific assay should be utilized, such as Treponema pallidum (Syphilis) Screening [place] (442310) or Rapid Plasma Reagin (RPR) Test With Reflex to Quantitative RPR and Confirmatory Treponema pallidum Antibodies (809240). Performed By: #### U ACSIND #### [facility] [address] [place] [address] Dr. Adrianna Caldera RUBELLA AB IGGon 06-08-2022 Rubella Antibodies, IgG 4.69 index Normal Immu ne >0.99 [facility] Comment on above: Result Comment: Non- immune <0.90 Equivocal 0.90 - 0.99 Immune >0.99 Performed By: #### R UBIGG ####[facility] [id number] [address]Dr. Adrianna Caldera CBC AUTO DIFFon 06-05-2022 BASO # 0.0 103/ul Normal 0.0-0.1 [facility] Comment on above: Performed By: #### C BC #### [facility] [address] [place] [address] Dr. Adrianna Caldera Basophils/100 WBC (Bld) 0.3 % Normal 0.2-2.0 [facility] Comment on above: Performed By: #### C BC #### [facility] [address] [place] [address] Dr. Adrianna Caldera EO # 0.1 103/ul Normal 0.0-0.7 [facility] Comment on above: Performed By: #### C BC #### [facility] [address] [place] [address] Dr. Adrianna Caldera Eosinophils/100 WBC (Bld) 0.6 % Critically low 0.9-7.0 [facility] Comment on above: Performed By: #### C BC #### [facility] [address] [place] [address] Dr. Adrianna Caldera Erythrocyte distribution width (RBC) [Ratio] 11.7 % Normal 11.0-15.0 [facility] Comment on above: Performed By: #### C BC #### [facility] [address] [place] [address] Dr. Adrianna Caldera Hematocrit (Bld) [Volume fraction] 33.8 % Critically low 36.0-48.0 [facility] Comment on above: Performed By: #### C BC #### [facility] [address] [place] [address] Dr. Adrianna Caldera Hemoglobin (Bld) [Mass/Vol] 12.6 g/dL Normal 12.0-16.0 [facility] Comment on above: Performed By: #### C BC #### [facility] [address] [place] [address] Dr. Adrianna Caldera IG # 0.05 10e3/ul Critically high 0.00-0.03 [facility] Comment on above: Performed By: #### C BC #### [facility] [address] [place] [address] Dr. Adrianna Caldera IG % 0.4 % Normal 0.0-0.5 [facility] Comment on above: Performed By: #### C BC #### [facility] [address] [place] [address] Dr. Adrianna Caldera LYMPH # 2.4 103/ul Normal 1.2-3.8 [facility] Comment on above: Performed By: #### C BC #### [facility] [address] [place] [address] Dr. Adrianna Caldera Lymphocytes/100 WBC (Bld) 21.1 % Normal 20.5-60.0 [facility] Comment on above: Performed By: #### C BC #### [facility] [address] [place] [address] Dr. Adrianna Caldera MANUAL DIFF REQ NO Normal [facility] Comment on above: Performed By: #### C BC #### [facility] [address] [place] [address] Dr. Adrianna Caldera MCH (RBC) [Entitic mass] 30.3 pg Normal 26.7-34.0 [facility] Comment on above: Performed By: #### C BC #### [facility] [address] [place] [address] Dr. Adrianna Caldear MCHC (RBC) [Mass/Vol] 37.3 g/dL Critically high 29.9-35.2 [facility] Comment on above: Performed By: #### C BC #### [facility] [address] [place] [address] Dr. Adrianna Caldera MCV (RBC) [Entitic vol] 81.3 fL Normal 81.0-99.0 [facility] Comment on above: Performed By: #### C BC #### [facility] [address] [place] [address] Dr. Adrianna Caldera MONO # 0.6 103/ul Normal 0.3-0.8 [facility] Comment on above: Performed By: #### C BC #### [facility] [address] [place] [address] Dr. Adrianna Caldera Monocytes/100 WBC (Bld) 5.4 % Normal 1.7-12.0 [facility] Comment on above: Performed By: #### C BC #### [facility] [address] [place] [address] Dr. Adrianna Caldera NEUT # 8.3 103/ul Critically high 1.4-6.5 [facility] Comment on above: Performed By: #### C BC #### [facility] [address] [place] [address] Dr. Adrianna Caldera Neutrophils/100 WBC (Bld) 72.2 % Normal 43.0-75.0 [facility] Comment on above: Performed By: #### C BC #### [facility] [address] [address] [address] Adrianna Caldera Platelet mean volume (Bld) [Entitic vol] 10.6 fL Normal 9.5-13.5 [facility] Comment on above: Performed By: #### C BC #### [facility] [address] [address] [address] Adrianna Caldera PLT 253 103/ul Normal 150-450 [facility] Comment on above: Performed By: #### C BC #### [facility] [address] [address] [address] Adrianna Caldera RBC 4.16 106/ul Critically low 4.20-5.40 [facility] Comment on above: Performed By: #### C BC #### [facility] [address] [address] [address] Adrianna Caldera WBC 11.6 103/ul Critically high 4.0-11.0 [facility] Comment on above: Performed By: #### C BC #### [facility] [address] [address] [address] Adrianna Caldera CULTURE URINEon 06-05-2022 CULTURE URINE Culture Observations: LIGHT GROWTH OF MIXED GENITAL JIGAR. NO POTENTIAL PATHOGENS SEEN. Normal [facility] Comment on above: Performed By: #### U RCX ####[facility] [id number] [address]Dr. Adrianna Caldera GLYCOHEMOGLOBIN A1Con 2022 ADA RECOMMENDATION SEE BELOW Normal [facility] Comment on above: Result Comment: ADA RECOMMENDED LIMIT 4.0 - 6.0 ADA THERAPEUTIC TARGET < 7.0 ACTION SUGGESTED > 7.0 Performed By: #### P REGQNT #### [facility] [address] [address] [address] Adrianna Caldera Glucose [Mass/Vol] 105 mg/dL Normal [facility] [place] Comment on above: Performed By: #### P REGQNT #### [facility] [address] [address] [address] Adrianna Caldera HbA1c (Bld) [Mass fraction] 5.3 % Normal 4.5-6.2 [facility] Comment on above: Performed By: #### P REGQNT #### [facility] [address] [place], [place] [address] Dr. Adrianna Caldera TYPE AND SCREENon 06-05-2022 TYPE AND SCREEN Negative Normal [facility] Comment on above: Performed By: #### T NS ####[facility] [address] [place], [place] [address]IfDr. Adrianna Caldera US PREG <14 WKSon 05-27-2022 [...] GOVIND JOHNSTON Date: 2022-05-26 22:31 Normal [facility] CBC AUTO DIFFon 05-26-2022 BASO # 0.1 103/ul Normal 0.0-0.1 [facility] Comment on above: Performed By: #### U ACSIND #### [facility] [address] [address] [address] Adrianna Caldera Basophils/100 WBC (Bld) 0.5 % Normal 0.2-2.0 [facility] Comment on above: Performed By: #### U ACSIND #### [facility] [address] [address] [address] Adrianna Caldera EO # 0.1 103/ul Normal 0.0-0.7 [facility] Comment on above: Performed By: #### U ACSIND #### [facility] [address] [address] [address] Adrianna Caldera Eosinophils/100 WBC (Bld) 0.5 % Critically low 0.9-7.0 [facility] Comment on above: Performed By: #### U ACSIND #### [facility] [address] [place] [address] Dr. Adrianna Caldera Erythrocyte distribution width (RBC) [Ratio] 11.9 % Normal 11.0-15.0 [facility] Comment on above: Performed By: #### U ACSIND #### [facility] [address] [place] [address] Dr. Adrianna Caldera Hematocrit (Bld) [Volume fraction] 37.5 % Normal 36.0-48.0 [facility] Comment on above: Performed By: #### U ACSIND #### [facility] [address] [place] [address] Dr. Adrianna Caldera Hemoglobin (Bld) [Mass/Vol] 12.8 g/dL Normal 12.0-16.0 [facility] Comment on above: Performed By: #### U ACSIND #### [facility] [address] [place] [address] Dr. Adrianna Caldera IG # 0.04 10e3/ul Critically high 0.00-0.03 [facility] Comment on above: Performed By: #### U ACSIND #### [facility] [address] [address] [address] Adrianna Caldera IG % 0.4 % Normal 0.0-0.5 [facility] Comment on above: Performed By: #### U ACSIND #### [facility] [address] [address] [address] Adrianna Caldera LYMPH # 3.0 103/ul Normal 1.2-3.8 [facility] Comment on above: Performed By: #### U ACSIND #### [facility] [address] [address] [address] Adrianna Caldera Lymphocytes/100 WBC (Bld) 27.0 % Normal 20.5-60.0 [facility] Comment on above: Performed By: #### U ACSIND #### [facility] [address] [address] [address] Adrianna Caldera MANUAL DIFF REQ NO Normal [facility] Comment on above: Performed By: #### U ACSIND #### [facility] [address] [place] [address] Dr. Adrianna Caldera MCH (RBC) [Entitic mass] 29.8 pg Normal 26.7-34.0 [facility] Comment on above: Performed By: #### U ACSIND #### [facility] [address] [address] [address] Adrianna Caldera MCHC (RBC) [Mass/Vol] 34.1 g/dL Normal 29.9-35.2 [facility] Comment on above: Performed By: #### U ACSIND #### [facility] [address] [address] [address] Adrianna Caldera MCV (RBC) [Entitic vol] 87.4 fL Normal 81.0-99.0 [facility] Comment on above: Performed By: #### U ACSIND #### [facility] [address] [address] [address] Adrianna Caldera MONO # 0.7 103/ul Normal 0.3-0.8 [facility] Comment on above: Performed By: #### U ACSIND #### [facility] [address] [address] [address] Adrianna Caldera Monocytes/100 WBC (Bld) 6.3 % Normal 1.7-12.0 [facility] Comment on above: Performed By: #### U ACSIND #### [facility] [address] [address] [address] Adrianna Caldera NEUT # 7.2 103/ul Critically high 1.4-6.5 [facility] Comment on above: Performed By: #### U ACSIND #### [facility] [address] [address] [address] Adrianna Caldera Neutrophils/100 WBC (Bld) 65.3 % Normal 43.0-75.0 [facility] Comment on above: Performed By: #### U ACSIND #### [facility] [address] [address] [address] Adrianna Caldera Platelet mean volume (Bld) [Entitic vol] 10.3 fL Normal 9.5-13.5 [facility] Comment on above: Performed By: #### U ACSIND #### [facility] [address] [place] [address] Dr. Adrianna Caldera PLT 316 103/ul Normal 150-450 [facility] Comment on above: Performed By: #### U ACSIND #### [facility] [address] [place] [address] Dr. Adrianna Caldera RBC 4.29 106/ul Normal 4.20-5.40 [facility] Comment on above: Performed By: #### U ACSIND #### [facility] [address] [place] [address] Dr. Adrianna Caldera WBC 11.0 103/ul Normal 4.0-11.0 [facility] Comment on above: Performed By: #### U ACSIND #### [facility] [address] [place] [address] ABD/PELV W CONon [...] ISIDRO AVILA Date: 2022-05-26 19:39 Normal [facility]-19 PCR [facility]on 04-30 SARS-CoV-2 (COVID-19) RNA ALEKSANDER+probe Ql (Unsp spec) Not detected Normal NOT DETECTED [facility] Comment on above: Result Comment: When [...] for this test is supported by the [place] of Health and Human Service's declaration that [...] used). Performed By: #### U ACSIND #### [facility] [address] [place] [address] Dr. Adrianna RHODES URINE PROFILEon 2 Bilirubin Ql (U) Negative Normal NEGATIVE [facility] Comment on above: Performed By: #### P REGQNT #### [facility] [address] [address] [address] Adrianna Caldera Clarity (U) CLEAR Normal CLEAR [facility] Comment on above: Performed By: #### P REGQNT #### [facility] [address] [place] [address] Dr. Adrianna Caldera Color (U) YELLOW Normal YELLOW [facility] Comment on above: Performed By: #### P REGQNT #### [facility] [address] [address] [address] Adrianna LINARES A micrscopic examination will be performed if indicated. Normal [facility] Comment on above: Performed By: #### P REGQNT #### [facility] [address] [place] [address] Dr. Adrianna Caldera Glucose Ql (U) Negative Normal NEGATIVE [facility] Comment on above: Performed By: #### P REGQNT #### [facility] [address] [place] [address] Dr. Adrianna Caldera Hemoglobin Ql (U) Negative Normal NEGATIVE [facility] Comment on above: Performed By: #### P REGQNT #### [facility] [address] [place] [address] Dr. Adrianna Caldera Ketones Ql (U) 15 mg/dl Abnormal NEGATIVE [facility] Comment on above: Performed By: #### P REGQNT #### [facility] [address] [place] [address] Dr. Adrianna Caldera LEUKOCYTES Negative Normal NEGATIVE [facility] Comment on above: Performed By: #### P REGQNT #### [facility] [address] [place] [address] Dr. Adrianna Caldera Nitrite Ql (U) Negative Normal NEGATIVE [facility] Comment on above: Performed By: #### P REGQNT #### [facility] [address] [place] [address] Dr. Adrianna Caldera pH (U) 7.5 [pH] Normal 5-9 [facility] Comment on above: Performed By: #### P REGQNT #### [facility] [address] [place] [address] Dr. Adrianna Caldera SPEC GRAVITY 1.020 Normal 1.005-<=1.0 25 [facility] Comment on above: Performed By: #### P REGQNT #### [facility] [address] [place] [address] Dr. Adrianna Caldera UA PROTEIN Negative Normal NEGATIVE/ TRACE [facility] Comment on above: Performed By: #### P REGQNT #### [facility] [address] [place] [address] Dr. Adrianna Caldera UR MICRO IND NOT INDICATED Normal [facility] Comment on above: Performed By: #### P REGQNT #### [facility] [address] [place] [address] Dr. Adrianna Caldera Urobilinogen Qn (U) 0.2 {Micheal'U}/dL Normal 0.2 - 1. 0 [facility] Comment on above: Performed By: #### P REGQNT #### [facility] [address] [place] [address] Dr. Adrianna Caldera LIPASEon 05-26-2022 Lipase [Catalytic activity/Vol] 116.0 U/L Normal 73.0-393.0 [facility] Comment on above: Performed By: #### L IPA, CMP #### [facility] [address] [place] [address] Dr. Adrianna Caldera PROF 14(COMP METB)on 022 Albumin [Mass/Vol] 3.6 g/dL Normal 3.4-5.0 [facility] Comment on above: Performed By: #### L IPA, CMP #### [facility] [address] [place] [address] Dr. Adrianna Caldera Albumin/Globulin [Mass ratio] 0.9 {ratio} Normal [facility] Comment on above: Performed By: #### L IPA, CMP #### [facility] [address] [place] [address] Dr. Adrianna Caldera ALP [Catalytic activity/Vol] 57 U/L Normal 46-116 [facility] Comment on above: Performed By: #### L IPA, CMP #### [facility] [address] [address] [address] Adrianna Caldera ALT [Catalytic activity/Vol] 13 U/L Critically low 14-59 [facility] Comment on above: Performed By: #### L IPA, CMP #### [facility] [address] [address] [address] Adrianna Caldera Anion gap [Moles/Vol] 10.6 mmol/L Normal [facility] Comment on above: Performed By: #### L IPA, CMP #### [facility] [address] [address] [address] Adrianna Caldera AST [Catalytic activity/Vol] 12 U/L Critically low 15-37 [facility] Comment on above: Performed By: #### L IPA, CMP #### [facility] [address] [address] [address] Adrianna Caldera Bilirubin [Mass/Vol] 0.2 mg/dL Normal 0.2-1.0 [facility] Comment on above: Performed By: #### L IPA, CMP #### [facility] [address] [address] [address] Adrianna Caldera Calcium [Mass/Vol] 8.9 mg/dL Normal 8.5-10.1 [facility] Comment on above: Performed By: #### L IPA, CMP #### [facility] [address] [address] [address] Adrianna Caldera Chloride [Moles/Vol] 102 mmol/L Normal 98-107 [facility] Comment on above: Performed By: #### L IPA, CMP #### [facility] [address] [address] [address] Adrianna Caldera CO2 [Moles/Vol] 26.0 mmol/L Normal 21.0-32.0 [facility] Comment on above: Performed By: #### L IPA, CMP #### [facility] [address] [address] [address] Adrianna Caldera Creatinine [Mass/Vol] 0.61 mg/dL Normal 0.55-1.02 [facility] Comment on above: Performed By: #### L IPA, CMP #### [facility] [address] [address] [address] Adrianna Caldera EGFR-AF ROMANIAN >60 Normal >=60 [facility] Comment on above: Performed By: #### L IPA, CMP #### [facility] [address] [address] [address] Adrianna Caldera EGFR-NON AF ROMANIAN >60 Normal >=60 [facility] Comment on above: Performed By: #### L IPA, CMP #### [facility] [address] [address] [address] Adrianna Caldera Globulin (S) [Mass/Vol] 3.8 g/dL Normal [facility] Comment on above: Performed By: #### L IPA, CMP #### [facility] [address] [address] [address] Adrianna Caldera Glucose [Mass/Vol] 82 mg/dL Normal 74-106 [facility] Comment on above: Performed By: #### L IPA, CMP #### [facility] [address] [address] [address] Adrianna Caldera Potassium [Moles/Vol] 3.6 mmol/L Normal 3.5-5.1 [facility] Comment on above: Performed By: #### L IPA, CMP #### [facility] [address] [address] [address] Adrianna Caldera Protein [Mass/Vol] 7.4 g/dL Normal 6.4-8.2 [facility] Comment on above: Performed By: #### L IPA, CMP #### [facility] [address] [address] [address] Adrianna Caldera Sodium [Moles/Vol] 135 mmol/L Critically low 136-145 [facility] Comment on above: Performed By: #### L IPA, CMP #### [facility] [address] [address] [address] Adrianna Caldera Urea nitrogen [Mass/Vol] 9.0 mg/dL Normal 7.0-18.0 [facility] Comment on above: Performed By: #### L IPA, CMP #### [facility] [address] [place], [place] [address] Dr. Adrianna Caldera Urea nitrogen/Creatinine [Mass ratio] 14.8 mg/mg Normal [facility] Comment on above: Performed By: #### L IPA, CMP #### [facility] [address] [place], [place] [address] Dr. Adrianna Caldera No Panel Informationon 05-17 Body mass index (BMI) [Percentile] Per age and sex 0.1 {percentile} Invalid Interpretation Code [employer] [id number] Per age and sex 0.1 {percentile} Invalid Interpretation Code [employer] US PREG TVon 05-01-2022 US PREG TV [...] by: KAROL SIDDIQUI Date: 2022-04-30 22:06 Normal [facility] US PREG TVon 04-08-2022 US PREG [...] KAROL SIDDIQUI Date: 2022-04-08 17:08 Normal [facility] US PELVIS TRANSVAGon 022 US PELVIS [...] CINDY NOGUEIRA Date: 2022-03-22 22:47 Normal [facility] CBC AUTO DIFFon 03-22-2022 BASO # 0.1 103/ul Normal 0.0-0.1 [facility] Comment on above: Performed By: #### U ACSIND #### [facility] [address] [place] [address] Dr. Adrianna Caldera Basophils/100 WBC (Bld) 0.5 % Normal 0.2-2.0 [facility] Comment on above: Performed By: #### U ACSIND #### [facility] [address] [address] [address] Adrianna Caldera EO # 0.1 103/ul Normal 0.0-0.7 [facility] Comment on above: Performed By: #### U ACSIND #### [facility] [address] [address] [address] Adrianna Caldera Eosinophils/100 WBC (Bld) 0.6 % Critically low 0.9-7.0 [facility] Comment on above: Performed By: #### U ACSIND #### [facility] [address] [place] [address] Dr. Adrianna Caldera Erythrocyte distribution width (RBC) [Ratio] 12.6 % Normal 11.0-15.0 [facility] Comment on above: Performed By: #### U ACSIND #### [facility] [address] [place] [address] Dr. Adrianna Caldera Hematocrit (Bld) [Volume fraction] 40.0 % Normal 36.0-48.0 [facility] Comment on above: Performed By: #### U ACSIND #### [facility] [address] [place] [address] Dr. Adrianna Caldera Hemoglobin (Bld) [Mass/Vol] 13.6 g/dL Normal 12.0-16.0 [facility] Comment on above: Performed By: #### U ACSIND #### [facility] [address] [place] [address] Dr. Adrianna Caldera IG # 0.03 10e3/ul Normal 0.00-0.03 [facility] Comment on above: Performed By: #### U ACSIND #### [facility] [address] [place] [address] Dr. Adrianna Caldera IG % 0.3 % Normal 0.0-0.5 [facility] Comment on above: Performed By: #### U ACSIND #### [facility] [address] [place] [address] Dr. Adrianna Caldera LYMPH # 4.4 103/ul Critically high 1.2-3.8 [facility] Comment on above: Performed By: #### U ACSIND #### [facility] [address] [place] [address] Dr. Adrianna Caldera Lymphocytes/100 WBC (Bld) 38.4 % Normal 20.5-60.0 [facility] Comment on above: Performed By: #### U ACSIND #### [facility] [address] [place] [address] Dr. Adrianna Caldera MANUAL DIFF REQ NO Normal [facility] Comment on above: Performed By: #### U ACSIND #### [facility] [address] [place] [address] Dr. Adrianna Caldera MCH (RBC) [Entitic mass] 30.2 pg Normal 26.7-34.0 [facility] Comment on above: Performed By: #### U ACSIND #### [facility] [address] [address] [address] Adrianna Caldera MCHC (RBC) [Mass/Vol] 34.0 g/dL Normal 29.9-35.2 [facility] Comment on above: Performed By: #### U ACSIND #### [facility] [address] [address] [address] Adrianna Caldera MCV (RBC) [Entitic vol] 88.9 fL Normal 81.0-99.0 [facility] Comment on above: Performed By: #### U ACSIND #### [facility] [address] [address] [address] Adrianna Caldera MONO # 0.7 103/ul Normal 0.3-0.8 [facility] Comment on above: Performed By: #### U ACSIND #### [facility] [address] [address] [address] Adrianna Caldera Monocytes/100 WBC (Bld) 6.2 % Normal 1.7-12.0 [facility] Comment on above: Performed By: #### U ACSIND #### [facility] [address] [place] [address] Dr. Adrianna Caldera NEUT # 6.1 103/ul Normal 1.4-6.5 [facility] Comment on above: Performed By: #### U ACSIND #### [facility] [address] [address] [address] Adrianna Caldera Neutrophils/100 WBC (Bld) 54.0 % Normal 43.0-75.0 [facility] Comment on above: Performed By: #### U ACSIND #### [facility] [address] [address] [address] Adrianna Caldera Platelet mean volume (Bld) [Entitic vol] 10.9 fL Normal 9.5-13.5 [facility] Comment on above: Performed By: #### U ACSIND #### [facility] [address] [address] [address] Adrianna Caldera PLT 277 103/ul Normal 150-450 [facility] Comment on above: Performed By: #### U ACSIND #### [facility] [address] [address] [address] Adrianna Caldera RBC 4.50 106/ul Normal 4.20-5.40 [facility] Comment on above: Performed By: #### U ACSIND #### [facility] [address] [address] [address] Adrianna Caldera WBC 11.3 103/ul Critically high 4.0-11.0 [facility] Comment on above: Performed By: #### U ACSIND #### [facility] [address] [address] [address] Adrianna Caldera ER URINE PROFILEon 2 Bilirubin Ql (U) Negative Normal NEGATIVE [facility] Comment on above: Performed By: #### P REGU, ERUR ####[facility] [address] [place], [place] [address]Dr. Adrianna Caldera Clarity (U) CLEAR Normal CLEAR [facility] Comment on above: Performed By: #### P REGU, ERUR ####[facility] [address] [place], [place] [address]Dr. Adrianna Caldera Color (U) LT. YELLOW Normal YELLOW [facility] Comment on above: Performed By: #### P REGU, ERUR ####[facility] [address] [address]Dr. Adrianna MORALESD A micrscopic examination will be performed if indicated. Normal [facility] Comment on above: Performed By: #### P REGU, ERUR ####[facility] [address] [place], [place] [address]Dr. Adrianna Caldera Glucose Ql (U) Negative Normal NEGATIVE [facility] Comment on above: Performed By: #### P REGU, ERUR ####[facility] [address] [address]Dr. Adrianna Caldera Hemoglobin Ql (U) Negative Normal NEGATIVE [facility] Comment on above: Performed By: #### P REGU, ERUR ####[facility] [address] [address]Dr. Adrianna Caldera Ketones Ql (U) Negative Normal NEGATIVE [facility] Comment on above: Performed By: #### P REGU, ERUR ####[facility] [address] [place], [place] [address]Dr. Adrianna Caldera LEUKOCYTES Negative Normal NEGATIVE [facility] Comment on above: Performed By: #### P REGU, ERUR ####[facility] [address] [place], [place] [address]Dr. Adrianna Caldera Nitrite Ql (U) Negative Normal NEGATIVE [facility] Comment on above: Performed By: #### P REGU, ERUR ####[facility] [address] [place], [place] [address]Dr. Adrianna Caldera pH (U) 6.0 [pH] Normal 5-9 [facility] Comment on above: Performed By: #### P REGU, ERUR ####[facility] [address] [place], [place] [address]Dr. Adrianna Caldera SPEC GRAVITY <=1.005 Abnormal 1.005-<=1.0 25 [facility] Comment on above: Performed By: #### P REGU, ERUR ####[facility] [address] [place], [place] [address]Dr. Adrianna Caldera UA PROTEIN Negative Normal NEGATIVE/ TRACE [facility] Comment on above: Performed By: #### P REGU, ERUR ####[facility] [address] [place], [place] [address]Dr. Adrianna Caldera UR MICRO IND NOT INDICATED Normal [facility] Comment on above: Performed By: #### P REGU, ERUR ####[facility] [address] [place], [place] [address]Dr. Adrianna Caldera Urobilinogen Qn (U) 0.2 {Micheal'U}/dL Normal 0.2 - 1. 0 [facility] Comment on above: Performed By: #### P REGU, ERUR ####[facility] [address] [id number]. Adrianna Caldera PREG QUANT HCGon 03-22-2022 HCG QUANT 2 mIU/mL Normal [facility] Comment on above: Performed By: #### P REGQNT #### [facility] [address] [address] [address] Adrianna Caldera HCG RANGE SEE BELOW Normal [facility] Comment on above: Result Comment: 5-50 0.2-1 WEEK 50-500 1-2 WEEKS 100-5,000 2-3 WEEKS 500-10,000 3-4 WEEKS 1,000-50,000 4-5 WEEKS 10,000-100,000 5-6 WEEKS 15,000-200,000 6-8 WEEKS 10,000-100,000 2-3 MONTHS Performed By: #### P REGQNT #### [facility] [address] [place] [address] Dr. Adrianna Caldera URon 03-22-2022 , QUAL Negative Normal NEGATIVE [facility] Comment on above: Performed By: #### P REGU, ERUR ####[facility] [address] [address]Dr. Adrianna Caldera PROF CHEM 8 (BAS METB)on Anion gap [Moles/Vol] 10.9 mmol/L Normal [facility] Comment on above: Performed By: #### U ACSIND #### [facility] [address] [address] [address] Adrianna Caldera Calcium [Mass/Vol] 9.1 mg/dL Normal 8.5-10.1 [facility] Comment on above: Performed By: #### U ACSIND #### [facility] [address] [address] [address] Adrianna Caldera Chloride [Moles/Vol] 105 mmol/L Normal 98-107 [facility] Comment on above: Performed By: #### U ACSIND #### [facility] [address] [address] [address] Adrianna Caldera CO2 [Moles/Vol] 26.0 mmol/L Normal 21.0-32.0 [facility] Comment on above: Performed By: #### U ACSIND #### [facility] [address] [address] [address] Adrianna Caldera Creatinine [Mass/Vol] 0.98 mg/dL Normal 0.55-1.02 [facility] Comment on above: Performed By: #### U ACSIND #### [facility] [address] [address] [address] Adrianna Caldera EGFR-AF ROMANIAN >60 Normal >=60 [facility] Comment on above: Performed By: #### U ACSIND #### [facility] [address] [address] [address] Adrianna Caldera EGFR-NON AF ROMANIAN >60 Normal >=60 [facility] Comment on above: Performed By: #### U ACSIND #### [facility] [address] [address] [address] Adrianna Caldera Glucose [Mass/Vol] 87 mg/dL Normal 74-106 [facility] Comment on above: Performed By: #### U ACSIND #### [facility] [address] [address] [address] Adrianna Caldera Potassium [Moles/Vol] 3.9 mmol/L Normal 3.5-5.1 [facility] Comment on above: Performed By: #### U ACSIND #### [facility] [address] [address] [address] Adrianna Caldera Sodium [Moles/Vol] 138 mmol/L Normal 136-145 [facility] [place] Comment on above: Performed By: #### U ACSIND #### [facility] [address] [address] [address] Adrianna Caldera Urea nitrogen [Mass/Vol] 11.0 mg/dL Normal 7.0-18.0 [facility] Comment on above: Performed By: #### U ACSIND #### [facility] [address] [address] [address] Adrianna Caldera Urea nitrogen/Creatinine [Mass ratio] 11.2 mg/mg Normal [facility] Comment on above: Performed By: #### U ACSIND #### [facility] [address] [address] [address] Adrianna Caldera PREG QUANT HCGon 03-03-2022 HCG QUANT 1 mIU/mL Normal [facility] Comment on above: Performed By: #### P REGQNT #### [facility] [address] [address] [address] Adrianna Caldera HCG RANGE SEE BELOW Normal [facility] Comment on above: Result Comment: 5-50 0.2-1 WEEK 50-500 1-2 WEEKS 100-5,000 2-3 WEEKS 500-10,000 3-4 WEEKS 1,000-50,000 4-5 WEEKS 10,000-100,000 5-6 WEEKS 15,000-200,000 6-8 WEEKS 10,000-100,000 2-3 MONTHS Performed By: #### P REGQNT #### [facility] [address] [address] [address] Adrianna Caldera Creatinine and Glomerular fi ltration rate.predicted panel (S/P/Bld)Ordered By: Tae Natarajan on 02-10-2022 Creatinine [Mass/Vol] 1.03 mg/dL 0.44-1.03 [facility] Estimated glomerular filtrat ion rate (GFR) non- AmericanOrdered By: Tae Natarajan on 02-10-2022 GFR/1.73 sq M.predicted among non-blacks MDRD (S/P/Bld) [Vol rate/Area] > 60 mL/Min [facility] HCG ( test) IA.rapi d Ql (U)Ordered By: Tae Natarajan on 02-10-2022 HCG ( test) Ql (U) Negative [facility] No Panel InformationOrdered By: Tae Natarajan on 02-10-2022 Estimated GFR () > 60 mL/Min [facility] Comment on above: GFR estimated refere nce range: According to KDOQI guidelines, <60 ml/min/1.73m2 is sufficient to diagnose a patient with chronic kidney disease. Pharmacy Creatinine Clearance (Chem 88.89 [facility] Serum or plasma urea nitroge n measurement (mass/volume)Ordered By: Tae Natarajan on 02-10-2022 Urea nitrogen [Mass/Vol] 9 mg/dL 02-19 [facility] PREG QUANT HCGon 12-04-2021 HCG QUANT <1 Normal [facility] Comment on above: Performed By: #### P REGQNT #### [facility] [address] [place], [place] [address] Dr. Adrianna Caldera HCG RANGE SEE BELOW Normal [facility] Comment on above: Result Comment: 5-50 0-1 WEEK 40-300 1-2 WEEKS 100-1,000 2-3 WEEKS 500-6,000 3-4 WEEKS 5,000-200,000 1-2 MONTHS 10,000-100,000 2-3 MONTHS 3,000-50,000 2ND TRIMESTER 1,000-50,000 3RD TRIMESTER Performed By: #### P REGQNT #### [facility] [address] [address] [address] Adrianna Caldera CBC AUTO DIFFon 11-14-2021 BASO # 0.1 103/ul Normal 0.0-0.1 [facility] Comment on above: Performed By: #### C BC ####[facility] [address] [place] [address]Dr. Adrianna Caldera Basophils/100 WBC (Bld) 0.5 % Normal 0.2-2.0 [facility] Comment on above: Performed By: #### C BC ####[facility] [address] [id number]. Adrianna Caldera EO # 0.1 103/ul Normal 0.0-0.7 [facility] Comment on above: Performed By: #### C BC ####[facility] [address] [id number]. Adrianna Caldera Eosinophils/100 WBC (Bld) 0.8 % Critically low 0.9-7.0 [facility] Comment on above: Performed By: #### C BC ####[facility] [address] [id number] Caldera Erythrocyte distribution width (RBC) [Ratio] 13.0 % Normal 11.0-15.0 [facility] Comment on above: Performed By: #### C BC ####[facility] [address] [address]Dr. Adrianna Caldera Hematocrit (Bld) [Volume fraction] 38.5 % Normal 36.0-48.0 [facility] Comment on above: Performed By: #### C BC ####[facility] [address] [address]Dr. Adrianna Caldera Hemoglobin (Bld) [Mass/Vol] 12.9 g/dL Normal 12.0-16.0 [facility] Comment on above: Performed By: #### C BC ####[facility] [address] [place], [place] [address]Dr. Adrianna Caldera IG # 0.03 10e3/ul Normal 0.00-0.03 [facility] Comment on above: Performed By: #### C BC ####[facility] [address] [place], [place] [address]Dr. Adrianna Caldera IG % 0.3 % Normal 0.0-0.5 [facility] Comment on above: Performed By: #### C BC ####[facility] [address] [place], [place] [address]Dr. Adrianna Caldera LYMPH # 2.8 103/ul Normal 1.2-3.8 [facility] Comment on above: Performed By: #### C BC ####[facility] [address] [place], [place] [address]Dr. Adrianna Caldera Lymphocytes/100 WBC (Bld) 27.4 % Normal 20.5-60.0 [facility] Comment on above: Performed By: #### C BC ####[facility] [address] [place], [place] [address]Dr. Adrianna Caldera MANUAL DIFF REQ NO Normal [facility] Comment on above: Performed By: #### C BC ####[facility] [address] [place] [address]Dr. Adrianna Caldera MCH (RBC) [Entitic mass] 29.7 pg Normal 26.7-34.0 [facility] Comment on above: Performed By: #### C BC ####[facility] [address] [place] [address]Dr. Adrianna Werner MCHC (RBC) [Mass/Vol] 33.5 g/dL Normal 29.9-35.2 [facility] Comment on above: Performed By: #### C BC ####[facility] [address] [place] [address]Dr. Adrianna Caldera MCV (RBC) [Entitic vol] 88.7 fL Normal 81.0-99.0 [facility] Comment on above: Performed By: #### C BC ####[facility] [address] [place], [place] [address]Dr. Adrianna Caldera MONO # 0.7 103/ul Normal 0.3-0.8 [facility] Comment on above: Performed By: #### C BC ####[facility] [address] [place], [place] [address]Dr. Adrianna Caldera Monocytes/100 WBC (Bld) 6.5 % Normal 1.7-12.0 [facility] Comment on above: Performed By: #### C BC ####[facility] [address] [place], [place] [address]Dr. Adrianna Caldera NEUT # 6.5 103/ul Normal 1.4-6.5 [facility] Comment on above: Performed By: #### C BC ####[facility] [address] [place], [place] [address]Dr. Adrianna Caldera Neutrophils/100 WBC (Bld) 64.5 % Normal 43.0-75.0 [facility] Comment on above: Performed By: #### C BC ####[facility] [address] [place], [place] [address]Dr. Adrianna Caldera Platelet mean volume (Bld) [Entitic vol] 10.4 fL Normal 9.5-13.5 [facility] Comment on above: Performed By: #### C BC ####[facility] [address] [place], [place] [address]Dr. Adrianna Caldera PLT 324 103/ul Normal 150-450 [facility] Comment on above: Performed By: #### C BC ####[facility] [address] [place] [address]Dr. Adrianna Caldera RBC 4.34 106/ul Normal 4.20-5.40 [facility] Comment on above: Performed By: #### C BC ####[facility] [address] [place] [address]Dr. Adrianna Caldera WBC 10.1 103/ul Normal 4.0-11.0 [facility] Comment on above: Performed By: #### C BC ####[facility] [address] [place] [address]Dr. Adrianna Werner ER URINE PROFILEon 2 Bilirubin Ql (U) Negative Normal NEGATIVE [facility] Comment on above: Performed By: #### E RUR, PREGU, UMICRO ####[facility] [address] [place] [address]Dr. Adrianna Caldera Clarity (U) CLEAR Normal CLEAR [facility] Comment on above: Performed By: #### Rojelio RUR, PREGU, UMICRO ####[facility] [address] [place] [address]Dr. Adrianna Caldera Color (U) LT. YELLOW Normal YELLOW [facility] Comment on above: Performed By: #### E RUR, PREGU, UMICRO ####[facility] [address] [place] [address]Dr. Adrianna GOLDBERGAHD A micrscopic examination will be performed if indicated. Normal [facility] Comment on above: Performed By: #### E RUR, PREGU, UMICRO ####[facility] [address] [place] [address]Dr. Adrianna Caldera Glucose Ql (U) Negative Normal NEGATIVE [facility] Comment on above: Performed By: #### E RUR, PREGU, UMICRO ####[facility] [address] [place] [address]Dr. Adrianna Caldera Hemoglobin Ql (U) LARGE Abnormal NEGATIVE [facility] Comment on above: Performed By: #### Rojelio MONDRAGON PREGU, UMICRO ####[facility] [address] [place] [address]Dr. Adrianna Caldera Ketones Ql (U) Negative Normal NEGATIVE [facility] Comment on above: Performed By: #### Rojelio RUR, PREGU, UMICRO ####[facility] [address] [place] [address]Dr. Adrianna Caldera LEUKOCYTES Negative Normal NEGATIVE [facility] Comment on above: Performed By: #### Rojelio RUAugie, PREGU, UMICRO ####[facility] [address] [place] [address]Dr. Adrianna Caldera Nitrite Ql (U) Negative Normal NEGATIVE [facility] Comment on above: Performed By: #### Rojelio MONDRAGON PREGU, UMICRO ####[facility] [address] [place] [address]Dr. Adrianna Caldera pH (U) 6.5 [pH] Normal 5-9 [facility] Comment on above: Performed By: #### Rojelio MONDRAGON PREGU, UMICRO ####[facility] [address] [place] [address]Dr. Adrianna Caldera SPEC GRAVITY 1.015 Normal 1.005-<=1.0 25 [facility] Comment on above: Performed By: #### Rojelio MONDRAGON PREGU, UMICRO ####[facility] [address] [place] [address]Dr. Adrianna Caldera UA PROTEIN Negative Normal NEGATIVE/ TRACE [facility] Comment on above: Performed By: #### Rojelio MONDRAGON PREGU, UMICRO ####[facility] [address] [place] [address]Dr. Adrianna Caldera UR MICRO IND INDICATED Normal [facility] Comment on above: Performed By: #### Rojelio RUR, PREGU, UMICRO ####[facility] [address] [place] [address]Dr. Adrianna Caldera Urobilinogen Qn (U) 0.2 {Micheal'U}/dL Normal 0.2 - 1. 0 [facility] Comment on above: Performed By: #### E RUR, PREGU, UMICRO ####[facility] [address] [place], [place] [address]Dr. Adrianna Caldera URon 11-14-2021 , QUAL Negative Normal NEGATIVE [facility] Comment on above: Performed By: #### E RUR, PREGU, UMICRO ####[facility] [address] [place] [id number]. Adrianna Caldera PROF CHEM 8 (BAS METB)on Anion gap [Moles/Vol] 13.5 mmol/L Normal [facility] Comment on above: Performed By: #### U ACSIND #### [facility] [address] [address] [address] Adrianan Caldera Calcium [Mass/Vol] 8.7 mg/dL Normal 8.5-10.1 [facility] Comment on above: Performed By: #### U ACSIND #### [facility] [address] [address] [address] Adrianna Caldera Chloride [Moles/Vol] 102 mmol/L Normal 98-107 [facility] Comment on above: Performed By: #### U ACSIND #### [facility] [address] [address] [address] Adrianna Caldera CO2 [Moles/Vol] 27.3 mmol/L Normal 21.0-32.0 [facility] Comment on above: Performed By: #### U ACSIND #### [facility] [address] [address] [address] Adrianna Caldera Creatinine [Mass/Vol] 0.85 mg/dL Normal 0.55-1.02 [facility] Comment on above: Performed By: #### U ACSIND #### [facility] [address] [address] [address] Adrianna Caldera EGFR-AF ROMANIAN >60 Normal >=60 The [facility] Comment on above: Performed By: #### U ACSIND #### [facility] [address] [address] [address] Adrianna Caldera EGFR-NON AF ROMANIAN >60 Normal >=60 [facility] Comment on above: Performed By: #### U ACSIND #### [facility] [address] [address] [address] Adrianna Caldera Glucose [Mass/Vol] 104 mg/dL Normal 74-106 [facility] Comment on above: Performed By: #### U ACSIND #### [facility] [address] [address] [address] Adrianna Caldera Potassium [Moles/Vol] 3.8 mmol/L Normal 3.5-5.1 [facility] Comment on above: Performed By: #### U ACSIND #### [facility] [address] [address] [address] Adrianna Caldera Sodium [Moles/Vol] 139 mmol/L Normal 136-145 The [facility] [place] Comment on above: Performed By: #### U ACSIND #### [facility] [address] [address] [address] Adrianna Caldera Urea nitrogen [Mass/Vol] 8.0 mg/dL Normal 7.0-18.0 [facility] Comment on above: Performed By: #### U ACSIND #### [facility] [address] [address] [address] Adrianna Caldera Urea nitrogen/Creatinine [Mass ratio] 9.4 mg/mg Normal [facility] Comment on above: Performed By: #### U ACSIND #### [facility] [address] [address] [address] Adrianna Caldera URINE MICROSCOPIC ONLYon BACTERIA NONE SEEN Normal NONE SEEN [facility] Comment on above: Performed By: #### E JOHN MONDRAGON UMICRO ####[facility] [address] [place] [address]Dr. Adrianna Caldera Bacteria identified Cx Nom (U) NOT INDICATED Normal [facility] Comment on above: Performed By: #### E RUR PREGU, UMICRO ####[facility] [address] [place] [id number]. Yilan Caldera CAST NONE SEEN Normal NONE SEEN [facility] Comment on above: Performed By: #### E RUR, PREGU, UMICRO ####[facility] [address] [place] [address]Dr. Jemimabenito Caldera Crystals LM Nom (Urine sed) NONE SEEN Normal NONE SEEN [facility] Comment on above: Performed By: #### E RUR, PREGU, UMICRO ####[facility] [address] [place] [address]Dr. Jemimabenito Caldera Epithelial cells LM Ql (Urine sed) RARE Normal NONE SEEN /RARE [facility] Comment on above: Performed By: #### E RUR, PREGU, UMICRO ####[facility] [address] [place] [address]Dr. Jemimabenito Caldera MUCOUS NONE SEEN Normal NONE SEEN [facility] Comment on above: Performed By: #### E RUR, PREGU, UMICRO ####[facility] [address] [place] [address]Dr. Jemimabenito Caldera RBC 10-20 Abnormal 0-2 [facility] Comment on above: Performed By: #### E RUR, PREGU, UMICRO ####[facility] [address] [place] [address]Dr. Adrianna Caldera WBC 0-2 Abnormal NONE SEEN [facility] Comment on above: Performed By: #### E RUR, PREGU, UMICRO ####[facility] [address] [place] [address]Dr. Adrianna Caldera HCG, Quantitative, on 10-12-2021 hCG Quant <1 <5 mIU/mL [facility] Comment on above: Non-preg premeno <=5 Postmeno <=8 Male <=3 If HCG results do not concur with clinical observations, additional testing to confirm results is recommended. Elevated results not associated with may be found in patients with other diseases such as tumors of the germ cells (testis, ovaries, etc.), bladder, pancreas, stomach, lungs, and liver. [facility] CBC with Auto Differentialon 10-11-2021 Absolute Eos # 0.08 [facility] th Absolute Immature Granulocyte <0.03 [facility] Absolute Lymph # 1.85 [facility] alth Absolute Rowan # 0.56 [facility] lth Basophils (Bld) [#/Vol] 0.04 10*3/uL [facility] Basophils/100 WBC (Bld) 1 % 0 - 2 % M [facility] Eosinophils/100 WBC (Bld) 1 % 1 - 4 % [facility] Hematocrit (Bld) [Volume fraction] 38.9 % 36.3 - 47.1 % [facility] Hemoglobin.gastrointest inal spec 1 Ql (Stl) 12.7 g/dL 11.9 - 15.1 g/dL [facility] Immature granulocytes/100 WBC (Bld) 0 % 0 [facility] Lymphocytes/100 WBC (Bld) 29 % 24 - 43 % [facility] MCH (RBC) [Entitic mass] 29.7 pg 25.2 - 33.5 pg [facility] MCHC (RBC) [Mass/Vol] 32.6 g/dL 28.4 - 34.8 g/dL [facility] MCV (RBC) [Entitic vol] 90.9 fL 82.6 - 102.9 fL [facility] Monocytes/100 WBC (Bld) 9 % 3 - 12 % [facility] NRBC Automated 0.0 0.0 per 100 WBC [facility] Platelet distribution width (Bld) [Ratio] 12.9 % 11.8 - 14.4 % [facility] Platelet mean volume (Bld) [Entitic vol] 10.3 fL 8.1 - 13.5 fL [facility] Platelets (Bld) [#/Vol] 351 10*3/uL [facility] RBC (Bld) [#/Vol] 4.28 10*6/uL 3.95 - 5.1 1 m/uL [facility] Segmented neutrophils/100 WBC (Bld) 60 % 36 - 65 % [facility] Segs Absolute 3.90 [facility] WBC (Bld) [#/Vol] 6.5 10*3/uL [facility] CT ABDOMEN PELVIS W IV [...] No hydronephrosis. Gallbladder is not remarkable. GI/Bowel: Faua-vv-vyoibtrt retained stool without bowel obstruction. No pericecal inflammatory changes. Appendix unremarkable. Pelvis: There is mild prominence endometrial canal 7 mm. This may related to phase of menstrual cycle. Please correlate exam findings and history. No suspicious adnexal mass. Bladder remarkable. Peritoneum/Retroperi toneum: Trace free fluid dependent pelvis. No free air. No suspicious adenopathy. Bones/Soft Tissues: No suspicious osseous lesion [facility] Ashutosh Omalley MD - 10/11/2021 EXAMINATION: CT [...] No hydronephrosis. Gallbladder is not remarkable. GI/Bowel: Tgpv-za-vpavlyie retained stool without bowel obstruction. No pericecal [...] Negative acute inflammatory process or bowel obstruction. [employer] Work Phone: Radiology Study observation (narrative) [facility] Work Phone: CT ABDOMEN PELVIS W IV CONTR AST Additional Contrast? NoneOrdered By: Ashutosh Omalley on 10-11-2021 [employer] Work Phone: Comprehensive Metabolic Pane l w/ Reflex to MGon 10-11-2021 Albumin [Mass/Vol] 4.3 g/dL 3.5 - 5.2 g/dL [employer] Albumin/Globulin [Mass ratio] 1.7 {ratio} [facility] ALP (Bld) [Catalytic activity/Vol] 73 U/L 35 - 104 U/L [employer] ALT [Catalytic activity/Vol] 21 U/L 5 - 33 U/L [facility] Anion gap [Moles/Vol] 7 mmol/L Low 9 - 17 mmol/L [facility] AST [Catalytic activity/Vol] 15 U/L <32 [employer] Bilirubin [Mass/Vol] 0.25 mg/dL Low 0.3 - 1 .2 mg/dL [facility] Calcium [Mass/Vol] 9.1 mg/dL 8.6 - 10. 4 mg/dL [facility] Chloride [Moles/Vol] 105 mmol/L 98 - 10 7 mmol/L [facility] CO2 [Moles/Vol] 26 mmol/L 20 - 31 mmol/L [facility] Creatinine [Mass/Vol] 0.75 mg/dL 0.50 - 0.90 mg/dL [facility] Free PSA/Total PSA [Mass fraction] 6.8 g/dL 6.4 - 8.3 g/dL [employer] GFR >60 >60 mL/min [employer] GFR Non- >60 >60 mL/min [facility] Glucose [Mass/Vol] 116 mg/dL High 70 - 99 mg/dL [facility] Interpretation and review of laboratory results Abnormal [facility] Potassium [Moles/Vol] 3.9 mmol/L 3.7 - 5.3 mmol/L [facility] Sodium [Moles/Vol] 138 mmol/L 135 - 144 mmol/L [facility] Urea nitrogen (BldV) [Mass/Vol] 9 mg/dL 6 - 20 mg/dL [facility] Urea nitrogen/Creatinine (Bld) [Mass ratio] 12 [facility] Laboratory - Chemistry and C hemistry - challengeon 10-11-2021 GFR/1.73 sq M.predicted MDRD (S/P/Bld) [Vol rate/Area] [facility] Comment on above: Average GFR for 20-2 9 years old: 116 mL/min/1.73sq m Chronic Kidney Disease: <60 mL/min/1.73sq m Kidney failure: <15 mL/min/1.73sq m eGFR calculated using average adult body mass. Additional eGFR calculator available at: http://www.[employer]/multiple_crcl_2012.htm Stage 1: Some kidney damage normal GFR Stage 2: Mild kidney damage GFR 60-89 Stage 3: Moderate kidney damage GFR 30-59 Stage 4: Severe kidney damage GFR 15-29 Stage 5: Severe kidney damage GFR <15 ESRD - chronic treatment by dialysis or transplant Lipaseon 10-11-2021 Lipase [Catalytic activity/Vol] 39 U/L 13 - 60 U/L [facility] Microscopic Urinalysison - [facility] Bacteria, UA TRACE Abnormal None [facility] Crystals, UA 2 TO 5 CALCIUM OXALATE Abnormal None /HPF [facility] Epithelial Cells UA 2 TO 5 [facility] Interpretation and review of laboratory results Abnormal [facility] RBC, UA 2 TO 5 [facility] WBC, UA 0 TO 2 [facility] No Panel Informationon 10-11 [facility] , Urineon 2 Beta HCG ( test) Ql (U) Negative NEGATIVE [facility] Comment on above: Specimens with hCG l evels near the threshold of the test (25 mIU/mL) may give a negative or indeterminate result. In such cases, another test should be performed with a new specimen in 48-72 hours. If early is suspected clinically in this setting, correlation with quantitative serum b-hCG level is suggested. [employer] has confirmed the use of plasma for this test. This has not been cleared or approved by the U.S. Food and Drug Administration. The FDA has determined that such clearance is not necessary. [employer] Urinalysis with Reflex to Cu ltureon 10-11-2021 Bilirubin Urine Negative NEGATIVE [facility] Color, UA Yellow Yellow [facility] Glucose, Ur Negative NEGATIVE [facility] Health Interpretation and review of laboratory results Abnormal [facility] Ketones Ql (U) Negative NEGATIVE [facility] Leukocyte esterase Test strip Ql (U) Negative NEGATIVE [facility] Nitrite, Urine Negative NEGATIVE [facility] pH, UA 6.0 [facility] Protein, UA Negative NEGATIVE [facility] Specific [place], UA >1.030 [facility] Turbidity UA Clear Clear [facility] Urine Hgb TRACE Abnormal NEGATIVE [facility] Urobilinogen, Urine Normal Normal [facility] PREG QUANT HCGon 10-09-2021 HCG QUANT <1 Normal [facility] Comment on above: Performed By: #### P REGQNT ####[facility] [address] [place], [place] [address]Np. Adrianna Caldera HCG RANGE SEE BELOW Normal [facility] Comment on above: Result Comment: 5-50 0-1 WEEK 40-300 1-2 WEEKS 100-1,000 2-3 WEEKS 500-6,000 3-4 WEEKS 5,000-200,000 1-2 MONTHS 10,000-100,000 2-3 MONTHS 3,000-50,000 2ND TRIMESTER 1,000-50,000 3RD TRIMESTER Performed By: #### P REGQNT ####[facility] [address] [place], [place] [address]Em. Adrianna Caldera CULTURE, URINE, ROUTINEon CULTURE, URINE, ROUTINE SEE NOTE Abnormal [facility] Comment on above: Result Comment: CULTURE, URINE, ROUTINE Micro Number: [id number] Test Status: Final Specimen Source: Urine Specimen [...] Performed By: #### 3 95 #### [facility] [address], [address] [place] [id number] Stamp Mounter: Javid Broussard MD XR CHEST PORTABLEon 03-16-20 20 No acute process. [facility] [employer] EXAMINATION: ONE XRAY VIEW OF THE CHEST 03/16/2020 3:33 pm COMPARISON: 07/13/2014 HISTORY: ORDERING SYSTEM PROVIDED HISTORY: cough, dyspnea TECHNOLOGIST PROVIDED HISTORY: cough, dyspnea FINDINGS: The lungs are without acute focal process. There is no effusion or pneumothorax. The cardiomediastinal silhouette is without acute process. The osseous structures are without acute process. [facility] [employer] [place], [place]hpn Incoming Radiant Results From [employer] - 03/16/2020 3:43 PM EDT EXAMINATION: ONE XRAY VIEW OF THE CHEST 03/16/2020 3:33 pm COMPARISON: 07/13/2014 HISTORY: ORDERING SYSTEM PROVIDED HISTORY: cough, dyspnea TECHNOLOGIST PROVIDED HISTORY: cough, dyspnea FINDINGS: The lungs are without acute focal process. There is no effusion or pneumothorax. The cardiomediastinal silhouette is without acute process. The osseous structures are without acute process. IMPRESSION: No acute process. [place], [place] Urinalysis with Microscopico n 03-03-2020 Amorphous, UA 1+ Abnormal None [place], [place] Bacteria, UA NOT REPORTED None [place], [place] Bilirubin Urine Negative NEGATIVE [place], [place] Casts UA NOT REPORTED /LPF [place], [place] Color, UA YELLO YELLOW [place] Crystals, UA NOT REPORTED None /HPF [place] Epithelial Cells UA None [place] Glucose, Ur Negative NEGATIVE [place] Interpretation and review of laboratory results Abnormal [place] Ketones Ql (U) Negative NEGATIVE [place] Leukocyte esterase Test strip Ql (U) Negative NEGATIVE [place] Mucus, UA NOT REPORTED None [place] Nitrite, Urine Negative NEGATIVE [place] Other Observations UA NOT REPORTED NOT REQ. [place], [place] pH, UA 6.0 [place] Protein (U) [Mass/Vol] Negative NEGATIVE [place], [place] RBC (U) [#/Vol] None [place], [place] Renal Epithelial, UA NOT REPORTED 0 /HPF [place] Specific [place], UA >1.030 [place], [place] Trichomonas, UA NOT REPORTED None [facility] [place] Turbidity UA CLOUDY Abnormal CLEAR [place] Urinalysis Comments NOT REPORTED [place] Urine Hgb TRACE Abnormal NEGATIVE [place] Urobilinogen, Urine Normal Normal [place] WBC, UA 0 TO 2 [place] Yeast, UA NOT REPORTED None [place] - [place] HEPATOBILIARY SCAN W EJEC TION FRACTIONon 10-12-2019 Cholesterol [Mass/Vol] No convincing scintigraphic evidence of acute or chronic cholecystitis. [place] EXAMINATION: NUCLEAR MEDICINE HEPATOBILIARY SCINTIGRAPHY [...] 30-60 mins. Images were obtained in the [place] projection and regions of interest were drawn [...] range is based on a limited study. [place], [place], pn Incoming Radiant Results From [employer] - 10/12/2019 2:56 PM EDT EXAMINATION: NUCLEAR [...] 30-60 mins. Images were obtained in the [place] projection and regions of interest were drawn [...] scintigraphic evidence of acute or chronic cholecystitis. [facility]- [place], [place] HEPATOBILIARY SCAN W PHAR MACOLOGICAL [...] 30-60 mins. Images were obtained in the [place] projection and regions of interest were drawn [...] Niraj Covarrubias MD 10/12/19 Final result Normal [facility] H. pylori urease IDon 2019 H. pylori urease ID Specimen Description .TISSUE, [place] [id number] EXP 04/05/20 Direct Exam NEGATIVE Report Status FINAL 10/06/2019 Normal [facility] Comment on above: Performed By: #### H JOELLE #### [facility] [address] [place] [address] Petroleum Inspector: Varun Vicente MD [address] [id number] Petroleum Inspector: Omar Segundo MD OPERATIVE REPORTon 0 OPERATIVE REPORT [address] [id number] OPERATIVE REPORT PATIENT NAME: LULÚ GAITAN : 1995 MED REC NO: [id number] ROOM: ACCOUNT NO: [id number] ADMIT DATE: 10/05/2019 PROVIDER: Toño Blanc Jr [...] satisfactory condition. TOÑO BLANC JR [email or web address] Doc#: [id number] CC: Lisseth Blanc Jr Normal [facility] POCT urine pregnancyon 10-04 Beta HCG ( test) Ql (U) Negative NEGATIVE [facility] [place] Comment on above: Specimens with hCG l evels near the threshold of the test (25 mIU/mL) may give a negative or indeterminate result. In such cases, another test should be performed with a new specimen in 48-72 hours. If early is suspected clinically in this setting, correlation with quantitative serum b-hCG level is suggested. [id number] 10-05-2019 SARS-CoV-2 Not Detected Normal Not Detected [facility] Comment on above: Result Comment: (NOT E) The [employer] RealTime SARS-CoV-2 assay is a real-time (rt) reverse transcriptase (RT) polymerase chain reaction (PCR) test intended for the [employer] system. The SARS-CoV-2 primer and probe sets are designed to detect RNA from SARS-CoV-2 in nasopharyngeal (EDGE POLISHER) and oropharyngeal (OP) swabs from patients with [...] The above 1 analytes were performed by [facility] [address] [place] [address] Performed By: #### C OVID #### [facility] [address] [place] [address] Petroleum Inspector: Samson Martinez DO [id number] [place], [place] [id number] Petroleum Inspector: Omar Segundo MD [facility] [address] [place] [address] Petroleum Inspector: Bill Jolly MD Surgical Pathologyon 020 Surgical [...] SURGICAL PATHOLOGY CONSULTATION Patient Name: LULÚ GAITAN [facility] Rec: [id number] Path Number: [id number] [facility] [employer] [facility] ANATOMIC PATHOLOGY [address] [place] [phone] [facility] Comment on above: Performed By: #### P PPVS #### [address] [id number] Petroleum Inspector: Omar Segundo MD [id number] 10-03-2019 SARS-CoV-2,[facility] Comment on above: Performed By: #### C OVID #### [facility] [address] [place] [address] Petroleum Inspector: Samson Martinez DO [facility] [address] [place] [address] Petroleum Inspector: Omar Segundo MD [facility] [address] [place] [address] Petroleum Inspector: Bill Jolly MD SARS-CoV-2 Normal [facility] Comment on above: Performed By: #### C OVID #### [facility] [address] [facility] [place] [address] Petroleum Inspector: Samson Martinez DO [facility] [address] [place] [address] Petroleum Inspector: Omar Segundo MD [facility] [address] [place] [address] Petroleum Inspector: Bill Jolly MD SARS-CoV-2 Source .NASOPHARYNGEAL SWAB Normal [facility] Comment on above: Performed By: #### C OVID #### [facility] [address] [facility] [place] [address] Petroleum Inspector: Samson Martinez DO [facility] [address] [place] [id number] Petroleum Inspector: Omar Segundo MD [facility] [address] [place] [address] Petroleum Inspector: Bill Jolly MD XR ABDOMEN (KUB) (SINGLE AP VIEW)on 02-08-2019 Nonspecific nonobstructive bowel gas pattern. No definite calcified urinary tract stones are seen. [facility], [place] EXAMINATION: ONE SUPINE XRAY VIEW(S) OF THE [...] nonobstructive bowel gas pattern. No unusual calcifications. [place], [place] James, Mhpn Incoming Radiant Results From [employer] - 02/08/2019 4:29 PM EDT EXAMINATION: ONE [...] definite calcified urinary tract stones are seen. [place] Urinalysis with Microscopico n 02-06-2019 Amorphous, UA NOT REPORTED None [place], [place] Bacteria, UA TRACE Abnormal None [place] Bilirubin Urine Negative NEGATIVE [place], [place] Casts UA NOT REPORTED /LPF [place] Color, UA YELLOW YELLOW [place] Crystals UA NOT REPORTED None /HPF [place] Epithelial Cells UA 2 TO 5 [place] Glucose, Ur Negative NEGATIVE [place] Interpretation and review of laboratory results Abnormal [place] Ketones Ql (U) Negative NEGATIVE [place] Leukocyte esterase Test strip Ql (U) Negative NEGATIVE [place] Mucus, UA 1+ Abnormal None [place] Nitrite, Urine Negative NEGATIVE [place] Other Observations UA NOT REPORTED NOT REQ. M [place] pH, UA 7.0 [place] Protein (U) [Mass/Vol] Negative NEGATIVE [place] RBC (U) [#/Vol] 0 TO 2 [place], [place] Renal Epithelial, Urine NOT REPORTED 0 /HPF [place] Specific [place], UA 1.020 [place], [place] Trichomonas, UA NOT REPORTED None [facility] [place] Turbidity UA CLEAR CLEAR [place] Urinalysis Comments NOT REPORTED [place] Urine Hgb TRACE Abnormal NEGATIVE [place] Urobilinogen, Urine Normal Normal [place] WBC, UA 0 TO 2 [place] Yeast, UA NOT REPORTED None [place] - [place] Wet prep, genitalon 02-07-20 19 Direct Exam NO TRICHOMONAS SEEN [place] Direct Exam YEAST [place] Direct Exam CLUE CELLS SEEN Abnormal [place], [place] Interpretation and review of laboratory results Abnormal [place] Special Requests NOT REPORTED [place] Specimen Description .VAGINA [place] Vital Signs Date Time Vital Sign Value Performing Clinician Facility 07-07-2023 10:35-0500 Body height 165.1 cm Matthew Lemus DO Work Phone: [facility] 07-07-2023 10:35-0500 Body mass index (BMI) [Ratio] 25.61 kg/m2 Matthew Lemus DO [employer] Phone: [facility] 07-07-2023 10:35-0500 Body temperature 97.7 [degF] Matthew Lemus DO Work Phone: [facility] 07-07-2023 10:35-0500 Body weight 69.81 kg Matthew Lemus DO Work Phone: [facility] 07-07-2023 10:35-0500 Diastolic blood pressure 70 mm[Hg] Matthew Lemus DO [employer] Phone: [facility] 07-07-2023 10:35-0500 Heart rate 100 /min Matthew Lemus DO [employer] Phone: [facility] 07-07-2023 10:35-0500 SaO2% (BldA) [Mass fraction] 96 % Matthew Nancy FISCHER Work Phone: [facility] 07-07-2023 10:35-0500 Systolic blood pressure 100 mm[Hg] Matthew Karines DO Work Phone: [facility] 05-19-2023 15:36-0500 Diastolic blood pressure 59 mm[Hg] DO Matthew Pamelahas Work Phone: [facility] 05-19-2023 15:36-0500 Heart rate 95 /min DO Matthew Pamelahas Work Phone: [facility] 05-19-2023 15:36-0500 Respiratory rate 16 /min DO Matthew Miltons Work Phone: [facility] 05-19-2023 15:36-0500 SaO2% (BldA) [Mass fraction] 99 % DO Matthew Miltons Work Phone: [facility] 05-19-2023 15:36-0500 Systolic blood pressure 109 mm[Hg] DO Matthew Farmerhas Work Phone: [facility] 05-19-2023 12:39-0500 Body height 165.1 cm DO Matthew Miltons Work Phone: [facility] 05-19-2023 12:39-0500 Body weight 70.76 kg DO Matthew Miltons Work Phone: [facility] 05-10-2023 11:11-0500 Diastolic blood pressure 78 mm[Hg] Rishi MARSHALL [facility] 05-10-2023 11:11-0500 Heart rate 72 /min Rishi MARSHALL [facility] 05-10-2023 11:11-0500 Systolic blood pressure 117 mm[Hg] Rishi MARSHALL [facility] 04-27-2023 13:30-0500 Body height 166.37 cm Imad Asaad Other [employer] Other 04-27-2023 13:30-0500 Body mass index (BMI) [Ratio] 25.71 kg/m2 Imad Asaad Other [employer] Other 04-27-2023 13:30-0500 Body weight 71.17 kg Imad Asaad Other [employer] Other 02-11-2023 18:20-0400 Body height 166.37 cm Sarah Monica Other [employer] Other 02-11-2023 18:20-0400 Body mass index (BMI) [Ratio] 27.69 kg/m2 Sarah Monica Other [employer] Other 02-11-2023 18:20-0400 Body temperature 98.1 [degF] Sarah Monica Other [employer] Other 02-11-2023 18:20-0400 Body weight 76.66 kg Sarah Monica Other [employer] Other 02-11-2023 18:20-0400 Diastolic blood pressure 78 mm[Hg] Sarah Monica Other [employer] Other 02-11-2023 18:20-0400 Respiratory rate 18 /min Sarah Monica Other [employer] Other 02-11-2023 18:20-0400 SaO2% (BldA) [Mass fraction] 99 % Sarah Monica Other [employer] Other 09-15-2023 18:20-0400 Systolic blood pressure 116 mm[Hg] Sarah Anderson Other [facility] [employer] Other 02-06-2023 07:30-0400 Body temperature 98.1 [degF] DO Matthew Lemus Work Phone: [facility] 02-06-2023 07:30-0400 Diastolic blood pressure 60 mm[Hg] DO Matthew Miltons Work Phone: [facility] 02-06-2023 07:30-0400 Heart rate 83 /min DO Matthew Miltons Work Phone: [facility] 02-06-2023 07:30-0400 Respiratory rate 18 /min DO Matthew Miltons Work Phone: [facility] 02-06-2023 07:30-0400 SaO2% (BldA) [Mass fraction] 97 % DO Matthew Lemus Work Phone: [facility] 02-06-2023 07:30-0400 Systolic blood pressure 102 mm[Hg] DO Matthew Miltons Work Phone: [facility] 02-03-2023 14:17-0400 Body height 165.1 cm DO Matthew Lemus Work Phone: [facility] 02-02-2023 23:53-0400 Body weight 74.15 kg DO Matthew Lemus Work Phone: [facility] 06-30-2022 23:12-0500 Diastolic blood pressure 56 mm[Hg] Courtney Vaughan MD Work Phone: [employer] 06-30-2022 23:12-0500 Heart rate 88 /min Courtney Vaughan MD Work Phone: [employer] 06-30-2022 23:12-0500 Respiratory rate 16 /min Courtney Vaughan MD Work Phone: [employer] 06-30-2022 23:12-0500 Systolic blood pressure 100 mm[Hg] Courtney Vaughan MD Work Phone: [employer] 06-30-2022 22:21-0500 Body height 165.1 cm Courtney Vaughan MD Work Phone: [facility] [employer] 06-30-2022 21:13-0500 SaO2% (BldA) [Mass fraction] 98 % Courtney Vaughan MD Work Phone: [employer] 06-30-2022 18:31-0500 Body mass index (BMI) [Ratio] 28.96 kg/m2 Courtney Vaughan MD Work Phone: [employer] 06-30-2022 18:31-0500 Body weight 78.93 kg Courtney Vaughan MD Work Phone: [employer] 06-30-2022 18:27-0500 Body temperature 98.4 [degF] Courtney Vaughan MD Work Phone: [employer] 06-17-2022 17:10-0500 Diastolic blood pressure 65 mm[Hg] [facility] [employer] [facility] 06-17-2022 17:10-0500 Systolic blood pressure 114 mm[Hg] Bridgette Lewis [facility] [employer] [facility] 06-17-2022 17:10-0500 Systolic blood pressure 110 mm[Hg] [facility] [employer] [facility] 06-17-2022 17:00-0500 Body height 166.37 cm Bridgette Ortega [facility] [employer] [facility] 06-17-2022 17:00-0500 Body mass index (BMI) [Ratio] 28.43 kg/m2 [facility] [employer] [facility] 06-17-2022 17:00-0500 Body surface area Derived from formula 1.91 m2 Bridgette Lewis [facility] [employer] [facility] 06-17-2022 17:00-0500 Body weight 78.7 kg Bridgette Ortega [employer] 06-17-2022 17:00-0500 Body weight 0.1 {percentile} Bridgette Ortega [employer] 06-17-2022 17:00-0500 Diastolic blood pressure 70 mm[Hg] Bridgette Ortega [employer] 06-17-2022 17:00-0500 Heart rate 72 /min Bridgette Ortega [employer] 06-17-2022 17:00-0500 Systolic blood pressure 118 mm[Hg] Bridgette Ortega [employer] 06-15-2022 17:35-0500 Body temperature 98.1 [degF] Maricel [employer] 06-15-2022 17:35-0500 Body weight 77.57 kg Maricel [employer] 06-15-2022 17:35-0500 Diastolic blood pressure 62 mm[Hg] Maricel [employer] 06-15-2022 17:35-0500 Heart rate 80 /min Maricel [employer] 06-15-2022 17:35-0500 Respiratory rate 16 /min Maricel [employer] 06-15-2022 17:35-0500 Systolic blood pressure 110 mm[Hg] [employer] 05-17-2022 11:45-0500 SaO2% (BldA) [Mass fraction] 98 % [employer] 05-17-2022 10:59-0500 Body height 166.37 cm Maricel [employer] 05-17-2022 10:59-0500 Body mass index (BMI) [Ratio] 28.19 kg/m2 [employer] 05-17-2022 10:59-0500 Body surface area Derived from formula 1.9 m2 [employer] 05-17-2022 10:59-0500 Body temperature 98.5 [degF] Maricel [employer] 05-17-2022 10:59-0500 Body weight 78.02 kg [employer] 05-17-2022 10:59-0500 Body weight 0.1 {percentile} [employer] 05-17-2022 10:59-0500 Diastolic blood pressure 60 mm[Hg] Maric[employer] 05-17-2022 10:59-0500 Heart rate 90 /min [employer] 05-17-2022 10:59-0500 Respiratory rate 18 /min [employer] 05-17-2022 10:59-0500 Systolic blood pressure 112 mm[Hg] [employer] 02-10-2022 20:45-0400 Diastolic blood pressure 64 mm[Hg] DO Matthew Lemus Work Phone: [facility] 02-10-2022 20:45-0400 Heart rate 81 /min DO Matthew Pamelahas Work Phone: [facility] 02-10-2022 20:45-0400 Respiratory rate 16 /min DO Matthew Farmerhas Work Phone: [facility] 02-10-2022 20:45-0400 SaO2% (BldA) [Mass fraction] 99 % DO Matthew Lemus Work Phone: [facility] 02-10-2022 20:45-0400 Systolic blood pressure 100 mm[Hg] DO Matthew Lemus Work Phone: [facility] 02-10-2022 14:17-0400 Body height 165.1 cm DO Matthew Lemus Work Phone: [facility] 02-10-2022 14:17-0400 Body weight 81.64 kg DO Matthew Lemus Work Phone: [facility] 02-09-2022 10:01-0400 Body height 166.37 cm Kaleigh [employer] 02-09-2022 10:01-0400 Diastolic blood pressure 64 mm[Hg] Kaleigh Ismael [employer] 02-09-2022 10:01-0400 Heart rate 120 /min Kaleigh Ismael [employer] 02-09-2022 10:01-0400 Systolic blood pressure 118 mm[Hg] Kaleigh Ismael [employer] 01-29-2022 11:30-0400 Body height 166.37 cm Bridgetteko Lewis [employer] 01-29-2022 11:30-0400 Diastolic blood pressure 62 mm[Hg] Bridgette Debbie [employer] 01-29-2022 11:30-0400 Heart rate 100 /min Bridgette Lewis [employer] 01-29-2022 11:30-0400 Systolic blood pressure 114 mm[Hg] Bridgette Lewis [employer] 01-25-2022 10:30-0400 Body height 166.37 cm Tae Natarajan Other [employer] Other 01-25-2022 10:30-0400 Body mass index (BMI) [Ratio] 29.49 kg/m2 Tae Tsaiaugie Other [employer] Other 01-25-2022 10:30-0400 Body temperature 97.8 [degF] Tae Tsaiaugie Other [employer] Other 01-25-2022 10:30-0400 Body weight 81.65 kg Tae Stanleyreaugie Other [employer] Other 01-25-2022 10:30-0400 Diastolic blood pressure 64 mm[Hg] Tae Stanleydavid Other [employer] Other 01-25-2022 10:30-0400 SaO2% (BldA) [Mass fraction] 99 % Tae Tsaiaugie Other [employer] Other 01-25-2022 10:30-0400 Systolic blood pressure 110 mm[Hg] Tae Stanleyreaugie Other [employer] Other 01-19-2022 10:59-0400 Body height 166.37 cm Bridgette Ortega [employer] 01-19-2022 10:59-0400 Body mass index (BMI) [Ratio] 29.5 kg/m2 [employer]idgette [employer] 01-19-2022 10:59-0400 Body surface area Derived from formula 1.94 m2 [employer]idget[employer] 01-19-2022 10:59-0400 Body weight 81.65 kg Bridgette Ortega [employer] 01-19-2022 10:59-0400 Diastolic blood pressure 72 mm[Hg] Bridgette Ortega [employer] 01-19-2022 10:59-0400 Heart rate 112 /min Bridgette Ortega [facility] [employer] 01-19-2022 10:59-0400 Systolic blood pressure 114 mm[Hg] Bridgette Ortega [employer] 10-11-2021 18:26-0400 Diastolic blood pressure 77 mm[Hg] Matthew Lemus Work Phone: [employer] 10-11-2021 18:26-0400 Systolic blood pressure 130 mm[Hg] Matthew Lemus Work Phone: [employer] 10-11-2021 14:00-0400 Body mass index (BMI) [Ratio] 28.46 kg/m2 Matthew Lemus Work Phone: [employer] 10-11-2021 14:00-0400 Body temperature 97.81 [degF] Matthew Lemus Work Phone: [employer] 10-11-2021 14:00-0400 Body weight 77.56 kg Matthew Lemus Work Phone: [employer] 10-11-2021 14:00-0400 Heart rate 95 /min Matthew Lemus Work Phone: [employer] 10-11-2021 14:00-0400 Respiratory rate 16 /min Matthew Lemus Work Phone: [employer] 10-11-2021 14:00-0400 SaO2% (BldA) [Mass fraction] 98 % Matthew Lemus Work Phone: [employer] 09-29-2021 13:04-0400 Blood Pressure Location Rishi MARSHALL [facility] 09-29-2021 13:04-0400 Diastolic blood pressure 83 mm[Hg] Rishi MARSHALL [facility] 09-29-2021 13:04-0400 Heart rate 100 /min Rishi MARSHALL [facility] 09-29-2021 13:04-0400 Systolic blood pressure 124 mm[Hg] Rishi MARSHALL [facility] 09-04-2021 09:22-0400 Blood Pressure Location Rishi MARSHALL [facility] [place] 09-04-2021 09:22-0400 Diastolic blood pressure 67 mm[Hg] Rishi MARSHALL [facility] 09-04-2021 09:22-0400 Heart rate 78 /min Rishi MARSHALL [facility] 09-04-2021 09:22-0400 Respiratory rate 16 /min Rishi MARSHALL [facility] 09-04-2021 09:22-0400 Systolic blood pressure 97 mm[Hg] [facility] 03-16-2020 15:12-0400 BMI (Body Mass Index) 25.96 kg/m2 [facility] [place] 03-16-2020 15:12-0400 Body Temperature 99 [degF] [facility] 03-16-2020 15:12-0400 Body weight 70.76 kg Catracho Oh [facility] , [place] 03-16-2020 15:12-0400 BP Diastolic 69 mm[Hg] Catracho Oh [facility] , [place] 03-16-2020 15:12-0400 BP Systolic 125 mm[Hg] Catracho Oh [facility] , [place] 03-16-2020 15:12-0400 Pulse (Heart Rate) 77 /min Catracho Oh [facility], [place] 03-16-2020 15:12-0400 Pulse Oximetry 99 % Catracho Oh [facility] , [place] 03-16-2020 15:12-0400 Respiratory Rate 18 /min Catracho Oh [facility], [place] 10-05-2019 13:30-0400 Body Temperature 98.1 [degF] [place] 10-05-2019 13:30-0400 BP Diastolic 72 mm[Hg] [place] 10-05-2019 13:30-0400 BP Systolic 110 mm[Hg] [place] 10-05-2019 13:30-0400 Pulse (Heart Rate) 76 /min [place], [place] 10-05-2019 13:30-0400 Pulse Oximetry 100 % [place] 10-05-2019 13:30-0400 Respiratory Rate 18 /min [place] 10-05-2019 10:26-0400 BMI (Body Mass Index) 24.37 kg/m2 [place] 10-05-2019 10:26-0400 Body weight 68.49 kg [place] 10-05-2019 10:26-0400 Height 167.6 cm [place] Encounters Encounter Date Encounter Type Care Provider Facility Start: 01-23-2024 End: 01-24-2024 [facility] Start: 01-23-2024 End: 01-23-2024 Emergency department patient visit MATTHEW LEMUS [facility] Start: 01-16-2024 End: 01-16-2024 Departed Referred DO Matthew Lemus Work Phone: [facility] Start: 01-16-2024 End: 01-16-2024 ambulatory RON DAVIDSON Not Available Start: 01-11-2024 End: 01-11-2024 Emergency department patient visit [facility] Start: 01-10-2024 End: 01-10-[address] [facility] Start: 01-10-2024 End: 01-10-[address] [facility] Start: 01-07-2024 End: 01-08-2024 Emergency department patient visit [facility] Start: 12-29-2023 End: 12-29-2023 Patient encounter procedure DO Matthew Lemus Work Phone: [facility] Work Phone: Start: 12-29-2023 End: 12-29-2023 ambulatory DO Matthew Lemus Work Phone: [facility] Work Phone: Start: 12-29-2023 ambulatory [facility] Start: 12-06-2023 End: 12-06-2023 ambulatory [facility] Start: 11-21-2023 End: 11-21-2023 ambulatory [facility] Start: 11-20-2023 End: 11-20-2023 Emergency department patient visit [facility] Start: 11-19-2023 End: 11-20-2023 Emergency department patient visit IFTIKHAR De La Vega [facility] Start: 11-17-2023 End: 11-17-2023 Emergency department patient visit [facility] Start: 11-08-2023 End: 11-08-2023 ambulatory Rishi MARSHALL Facility:[facility] Start: 11-08-2023 End: 11-08-2023 Patient encounter procedure Rishi MARSHALL [facility] Start: 11-08-2023 End: 11-08-2023 ambulatory RON BIANCA Not Available Start: 11-01-2023 End: 11-01-2023 ambulatory RON BIANCA Not Available Start: 09-27-2023 End: 09-27-2023 ambulatory Rishi MARSHALL Facility:[facility] [place] Start: 09-27-2023 End: 09-27-2023 Patient encounter procedure Rishi MARSHALL [facility] Start: 08-04-2023 End: 08-04-2023 ambulatory AUDELIA HOBBS Not Available Start: 07-27-2023 End: 07-27-2023 ambulatory RON BIANCA Not Available Start: 07-07-2023 End: 07-07-2023 ambulatory [facility] Start: 07-07-2023 End: 07-07-2023 Office outpatient visit 25 minutes Matthew Lemus DO Work Phone: [facility] - [facility] Comment on above: Bipolar 1 disorder ( [facility]) (Primary Dx); Oropharyngeal dysphagia; Generalized anxiety disorder with panic attacks Start: 07-04-2023 End: 07-04-2023 ambulatory RON BIANCA Not Available Start: 06-29-2023 End: 06-29-2023 ambulatory RON BIANCA Not Available Start: 06-13-2023 End: 06-13-2023 ambulatory RON BIANCA Not Available Start: 06-02-2023 End: 06-02-2023 ambulatory [facility] Start: 05-19-2023 End: 05-19-2023 Admission to same day surgery center DO Matthew Lemus Work Phone: [facility] Work Phone: Start: 05-19-2023 End: 05-19-2023 ambulatory DO Matthew Lemus Work Phone: [facility] Work Phone: Start: 05-17-2023 End: 05-17-2023 ambulatory Imad Asaad Other [employer] Other Start: 05-17-2023 Telephone encounter Imad Asaad [facility] Start: 05-12-2023 End: 05-12-2023 Patient encounter procedure DO Matthew Lemus Work Phone: [facility] [place] Work Phone: Start: 05-12-2023 End: 05-12-2023 ambulatory DO Matthew Lemus Work Phone: [facility] Work Phone: Start: 05-10-2023 End: 05-10-2023 ambulatory Rishi MARSHALL Facility:[facility] Start: 05-10-2023 End: 05-10-2023 Patient encounter procedure Rishi MARSHALL [facility] Start: 04-27-2023 End: 04-27-2023 ambulatory Imad Asaad Other [employer] Other Start: 04-27-2023 Office outpatient ne w 45 minutes Imad Asaad [facility] Start: 04-14-2023 End: 04-14-2023 ambulatory BRIDGETTE LEWIS Facility:[id number] Start: 03-10-2023 End: 03-10-2023 Emergency department patient visit BRIDGETTE LEWIS [facility] Start: 02-11-2023 End: 02-11-2023 ambulatory Sarah Anderson Other [employer] Other Start: 02-11-2023 Office outpatient visit 15 minutes Sarah Anderson [facility] Start: 02-03-2023 Telephone encounter Christine Macias DO Work Phone: Gastroenterology Comment on above: Appointment Start: 02-02-2023 End: 02-06-2023 Evaluation and management of inpatient DO Matthew Lemus Work Phone: [address] Work Phone: Start: 02-02-2023 ambulatory Casper Arteaga Facility:[facility] Start: 09-23-[address] RON DAVIDSON . Facili ty:[facility] Start: 09-16-2022 End: 09-16-[address] BRIDGETTE KRAUSE . Facility:[facility] Start: 09-04-2022 End: 09-04-2022 ambulatory CHUY MCNAMARA Facility:[facility] Start: 08-30-2022 End: 08-31-[address] RON DAVIDSON . Facility:[facility] Start: 08-17-2022 End: 08-18-[address] RON DAVIDSON . Facility:[facility] Start: 07-21-2022 End: 07-21-[address] RON DAVIDSON . Facility:[facility] Start: 07-20-2022 End: 07-21-[address] RON DAVIDSON . Facility:[facility] Start: 07-06-2022 End: 07-06-[address] MATTHEW LEMUS Facility:[facility] Start: 06-30-2022 End: 07-01-2022 Emergency department patient visit Courtney Vaughan MD Work Phone: [facility] Labor and Delivery Comment on above: Hyperemesis (Primary Dx); Pelvic cramping Start: 06-22-2022 End: 06-22-2022 ambulatory AUDELIA HOBBS . Facility:[facility] Start: 06-21-2022 Office Services Bridgette lindsay Other [facility] Start: 06-18-2022 Office Services Bridgette lindsay Other [facility] Start: 06-17-2022 Office outpatient visit 15 minutes Bridgette Lewis Other [facility] Start: 06-15-2022 Office outpatient visit 15 [...] surgery center DO Matthew Lemus Work Phone: [facility]-Interventional Radiology Start: 02-09-2022 Patient encounter procedure Kaleigh Guevara [employer] Start: 02-09-2022 Periodic preventive med est patient 18-39 yrs Kaleigh Guevara Other [facility] Start: 02-04-2022 Encounter for genera l adult medical examination without abnormal findings Bridgette Lewis [employer] Start: 02-04-2022 Lab Bridgette lindsay Other [facility] Start: 02-04-2022 Office Services Kaleigh Hernandez ams Other [employer] [facility] Start: 01-29-2022 Office outpatient visit 15 minutes Bridgette Lewis Other [facility] Office Start: 01-25-2022 End: 01-25-2022 ambulatory Tae Natarajan Other [facility] [employer] Other Start: 01-25-2022 Office outpatient ne w 45 minutes Tae Natarajan [facility] Vascular Surgery Start: 01-19-2022 Office outpatient ne w 30 minutes Bridgette Lewis Other [facility] Start: 12-17-2021 Encounter for genera l adult medical examination without abnormal findings [facility] Start: 12-04-2021 End: 12-05-[address] MATTHEW LEMUS Facility:[facility] Start: 11-14-2021 End: 11-14-[address] MATTHEW LEMUS Facility:[facility] Start: 10-12-2021 End: 10-12-2021 Subsequent hospital visit by physician Matthew Lemus Work Phone: [facility] Laboratory Start: 10-11-2021 End: 10-11-2021 Emergency department patient visit Matthew Lemus Work Phone: [facility] ED Comment on above: Lower abdominal pain (Primary Dx) Start: 10-09-2021 End: 10-10-[address] MATTHEW LEMUS Facility:[facility] Start: 09-29-2021 End: 09-29-2021 Patient encounter procedure Rishi MARSHALL [facility] Start: 09-04-2021 End: 09-04-2021 Patient encounter procedure Rishi MARSHALL [facility] Start: 03-16-2020 End: 03-16-2020 Emergency department patient visit Catracho Parisi Work Phone: [facility] ED Comment on above: Viral URI with cough (Primary Dx) Start: 03-07-2020 End: 03-07-2020 Subsequent hospital visit by physician [facility] Screening Schedule [facility] Scre[facility] Comment on above: Acute frontal sinusi tis, recurrence not specified Start: 03-03-2020 End: 03-03-2020 Subsequent hospital visit by physician Lisseth MAGALLANES Laboratory Comment on above: Gross hematuria Start: 10-12-2019 End: 10-15-2019 Patient encounter procedure [facility] Start: 10-12-2019 End: 10-14-2019 Subsequent hospital visit by physician Juan A Laguerre Room 2 [facility] Nuclear Medicine Comment on above: Intractable nausea a nd vomiting Start: 10-05-2019 End: 10-05-2019 Patient encounter procedure [facility] Start: 10-05-2019 End: 10-05-2019 Subsequent hospital visit by physician Toño Blanc Work Phone: [facility] Start: 10-03-2019 End: 10-04-2019 Patient encounter procedure BRIANA RUBIO [facility] Start: 10-03-2019 End: 10-03-2019 Subsequent hospital visit by physician Lisseth CRUZZ [place] [facility] Start: 10-02-2019 End: 10-02-2019 Subsequent hospital visit by physician Tonio Shelley19 Pat Screening Schedule [facility] Pre-Admit Testing Comment on above: No Show Start: 02-08-2019 End: 02-10-2019 Subsequent hospital visit by physician Khalida Grey Dr Room 2 [facility] Radiology Comment on above: Gross hematuria; Urgency of urination Start: 02-06-2019 End: 02-06-2019 Subsequent hospital visit by physician Lisseth MAGALLANES Laboratory Comment on above: Gross hematuria; Urgency of urination Start: 01-15-2019 End: 01-15-2019 Subsequent hospital visit by physician Lisseth MAGALLANES Laboratory Comment on above: Dysuria; Gross hematuria Procedures Date Procedure Procedure Detail Performing Clinician Start: 12-29-2023 Ultrasound elastography of liver DO Matthew Farmerjulien Work Phone: Start: 07-07-2023 Adult depression screening assessment Matthew Lemus DO Work Phone: Start: 05-19-2023 Esophagogastroduodenoscopy DO Matthew Lemus Work Phone: Start: 05-12-2023 Computed tomography of abdomen and pelvis with contrast DO Matthew Lemus Work Phone: Start: 05-10-2023 Removal of stent Rishi MARSHALL Start: 02-02-2023 Urine culture DO Matthew Lemus Work Phone: Start: 06-30-2022 Urinalysis microscopic only Courtney Vaughan MD Work Phone: Start: 06-30-2022 Urnls dip stick/tablet rgnt auto w/o microscopy Courtney Vaughan MD Work Phone: Start: 06-30-2022 Blood typing serologic abo Courtney Vaughan MD Work Phone: Start: 06-30-2022 End: 06-30-2022 Comprehensive metabolic panel Courtney Rainey dd, MD Work Phone: Start: 06-18-2022 Infusion of saline solution Bridgette lindsay Start: 06-18-2022 Normal saline solution infus Bridgette mcarthur Start: 06-17-2022 Blood chemistry Bridgette Lewis Start: 06-17-2022 Basic metabolic panel calcium total Ravinder ribeironilsa Debbie Start: 06-17-2022 Docrev cur meds by umair [...] aortogram DO Matthew Lemus Work Phone: Start: 09-13-2022 Docrev cur meds by eli clin Kaleigh de la vega Start: 02-04-2022 Comprehensive metabolic panel Kaleigh camp Start: 02-04-2022 Erythrocyte mean corpuscular volume determination Kaleigh Guevara Start: 02-04-2022 Lipid panel Kaleigh Guevara Start: 02-04-2022 Radiologic exam chest 2 views Bridgetteko sanford Start: 02-04-2022 Thyroid stimulating hormone measurement Kaleigh Guevara Start: 02-04-2022 Urinalysis, automated Kaleigh Guevara Start: 01-29-2022 Docrev cur meds by [facility] clin Bridgette mcarthur Start: 01-19-2022 Docrev cur meds by [facility]i clin Bridgette mcarthur Start: 01-19-2022 Ketorolac tromethamine inj Bridgette Mak tts Start: 01-19-2022 Therapeutic prophylactic/dx injection subq/im Bridgette Lewis Start: 01-05-2022 Skin test for tuberculosis, Bhumika test Start: 12-23-2021 Skin test for tuberculosis, Bhumika test Start: 10-12-2021 Gonadotropin chorionic quantitative Matthew Miltonoliva Work Phone: Start: 10-11-2021 Ct abdomen & pelvis w/contrast material [facility] Work Phone: Start: 10-11-2021 Assay of lipase [facility] Work Phone: Start: 10-11-2021 Urinalysis microscopic only [facility] Work Phone: Start: 10-11-2021 Urine test visual color cmprsn meths [facility] Work Phone: Start: 09-29-2021 Cystoscopy Rishi MARSHALL [...] 10-02-2019 COVID-19 BRIANA RUBIO Start: 10-02-2019 COVID-19 Brian Rubio Work Phone: Start: 02-08-2019 Radiologic exam [...] Td Vaccines (10 - Td or Tdap) [facility] [employer] [facility] Start: 04-09-2026 HIV screen HIV screen [facility], [place] Comment on above: Postponed from 2012 (Unavailable) Start: 04-09-2026 HIV screening HIV screen [facility] Comment on above: Postponed from 2012 (Unavailable) Start: 11-10-2025 DTaP/Tdap/Td vaccine (5 - Td or Tdap) DTaP/Tdap/Td vaccine (5 - Td or Tdap) [facility] Start: 11-10-2025 DTaP/Tdap/Td vaccine (6 - Tdap) DTaP/Tdap/Td vaccine (6 - Tdap) [place] Start: 07-07-2024 Adult BMI Screening Adult BMI Screening [facility] Start: 07-07-2024 Depression Screening Depression Screening [facility] Start: 07-07-2024 Tobacco Screening Tobacco Screening [facility] Start: 01-16-2024 [facility] Start: 12-29-2023 [facility] Start: 05-19-2023 [facility] Start: 02-06-2023 [facility] Start: 02-02-2023 Hospital admission [facility] Start: 01-28-2023 COVID-19 Vaccine ( season) COVID-19 Vaccine ( season) [facility] Start: 01-28-2023 Influenza vaccination [facility] Start: 08-09-2022 Lipid panel Lipid panel [facility] Start: 08-09-2022 Transferase alanine amino alt sgpt ALT [facility] Start: 08-09-2022 Transferase aspartate amino ast sgot AST [employer] Start: 06-21-2022 Iv infusion hydration initial 31 min-1 hour IV HYDRATION,INITIAL,31 MINUTES TO 1 HOUR [facility] Start: 06-17-2022 Basic metabolic panel calcium total Chem 8 [facility] Start: 06-15-2022 Brncdilat rspse spmtry pre&post-brncdilat admn Spirometry with bronchodilator [employer] Start: 05-30-2022 DEPRESSION ASSESSMENT DEPRESSION ASSESSMENT [facility] Start: 05-17-2022 Nitric oxide gas determination FENO [employer] Start: 04-03-2022 Depression Monitoring Depression Monitoring [facility] Start: 03-29-2022 Gonadotropin chorionic quantitative Beta HCG Quantitative [employer] Start: 03-17-2022 Gonadotropin chorionic quantitative Beta HCG Quantitative [employer] Start: 02-10-2022 [facility] Work Phone: Start: 02-04-2022 Assay of thyroid stimulating hormone tsh TSH [employer] Start: 02-04-2022 Blood count complete automated CBC PLATELET COUNT; AUTOMATED [employer] Start: 02-04-2022 Comprehensive metabolic panel Comp [employer] [facility] Start: 02-04-2022 Lipid panel Lipid panel [employer] [facility] Start: 02-04-2022 Urnls dip stick/tablet rgnt auto w/o microscopy UA [employer] Start: 02-04-2022 Chest PA & LAT [employer] Start: 01-19-2022 Therapeutic prophylactic/dx injection subq/im Sub Q/ IM injection [employer] [facility] Start: 12-28-2021 Influenza vaccination Flu vaccine (#1) [facility] Start: 12-23-2021 Skin test tuberculosis intradermal PPD (Skin test; tuberculosis, intradermal) [employer] Start: 07-29-2021 COVID-19 Vaccine (3 - Booster for Pfizer series) COVID-19 Vaccine (3 - Booster for Pfizer series) [facility] Start: 05-12-2021 COVID-19 Vaccine (5 - Booster) COVID-19 Vaccine (5 - Booster) [facility] Start: 03-03-2020 End: 03-03-2020 Office Visit 03/03/2020 Office Visit Urology Jose Lala MD [address], [address] [place] [address] [phone] [facility] Start: 02-07-2020 Chlamydia screen Chlamydia screen [place], [place] Start: 02-07-2020 Screening for Chlamydia trachomatis Chlamydia screen [facility] Start: 01-29-2020 Influenza vaccination [place] Start: 11-04-2019 Chlamydia screen Chlamydia screen [place] Start: 10-05-2019 End: 10-05-2019 Hospital Encounter [facility] Comment on above: EGD ESOPHAGOGASTRODUODENOSCOPY Start: 02-20-2019 End: 02-20-2019 Office Visit 02/20/2019 Office Visit Urology sUha Damico, ADMISSION LIAISON - HEARING CARE PROFESSIONAL [address] [place] [address] [phone] [facility] Start: 02-08-2019 End: 02-08-2019 Appointment 02/08/2019 Appointment Radiology [facility] Start: 01-28-2019 Influenza vaccination Flu vaccine (#1) [place] Start: 2018 Cervical cancer screen Cervical cancer screen [place], [place] Start: 2018 PAP TESTING PAP TESTING [facility] Start: 2018 Screening for malignant neoplasm of cervix [facility] Start: 2016 Urine microalbumin profile DTAP,TDAP,TD (1 - Tdap) [facility] Start: 2015 Adult BMI Follow Up Plan Adult BMI Follow Up Plan [facility] Start: 2015 Hepatitis C screening Hepatitis C screen [facility] Start: 2015 HEPATITIS C SCREENING HEPATITIS C SCREENING [facility] Start: 2015 HIV SCREENING HIV SCREENING [facility] Start: 02-05-2014 Varicella vaccine (2 of 2 - 13+ 2-dose series) Varicella vaccine (2 of 2 - 13+ 2-dose series) [facility] Start: 2012 HPV vaccine (1 - Female 3-dose series) HPV vaccine (1 - Female 3-dose series) [place] Start: 2011 PEDS TO ADULT TRANSITION ANNUAL ASSESSMENT PEDS TO ADULT TRANSITION ANNUAL ASSESSMENT [facility] Start: 2010 Varicella Vaccine (1 of 2 - 13+ 2-dose series) Varicella Vaccine (1 of 2 - 13+ 2-dose series) [place] Start: 2009 PEDS TO ADULT TRANSITION INITIAL DISCUSSION PEDS TO ADULT TRANSITION INITIAL DISCUSSION [facility] Start: 2008 HPV vaccine (1 - 2-dose series) HPV vaccine (1 - 2-dose series) [facility] Start: 2006 HPV VACCINE (1 - 2-dose series) HPV VACCINE (1 - 2-dose series) [facility] Start: 2003 Pneumococcal 0-64 years Vaccine (1 - PCV) Pneumococcal 0-64 years Vaccine (1 - PCV) [facility] Start: 2003 Pneumococcal 0-64 years Vaccine (1 of 1 - PPSV23) Pneumococcal 0-64 years Vaccine (1 of 1 - PPSV23) [place] Start: 1998 Varicella vaccine (1 of 2 - 2-dose childhood series) Varicella vaccine (1 of 2 - 2-dose childhood series) [place] Start: 1997 COVID-19 VACCINE (#1) COVID-19 VACCINE (#1) [facility] Start: 1997 HEPATITIS B (1 of 3 - 3-dose series) HEPATITIS B (1 of 3 - 3-dose series) [facility] End: 01-15-2019 Bacteria identified Cx Nom (U) Urine Culture Microbiology Routine Dysuria Gross hematuria 1 Occurrences starting 01/15/2019 until 01/15/2019 [place] Comment on above: 1 Occurrences starting 01/15/2019 until 01/15/2019 End: 02-06-2019 C.trachomatis N.gonorrhoeae DNA, Urine C.trachomatis N.gonorrhoeae DNA, Urine Microbiology Routine Gross hematuria Urgency of urination 1 Occurrences starting 02/06/2019 until 02/06/2019 [place] Comment on above: 1 Occurrences starting 02/06/2019 until 02/06/2019 C.trachomatis N.gono rrhoeae DNA, Urine C.trachomatis N.gonorrhoeae DNA, Urine Microbiology Routine Gross hematuria Urgency of urination 02/06/2019 12:22 PM EDT [place] COVID-19 [facility] End: 10-02-2019 COVID-19 COVID-19 Lab Routine One Time for 1 Occurrences starting 10/02/2019 until 10/02/2019 [place] Comment on above: One Time for 1 Occurrences starting 09/2019 until 10/02/2019 End: 03-07-2020 COVID-19 Ambulatory COVID-19 Ambulatory Lab Routine Acute frontal sinusitis, recurrence not specified 1 Occurrences starting 03/07/2020 until 03/07/2020 [place] Comment on above: 1 Occurrences starting 03/07/2020 until 03/07/2020 COVID-19 Ambulatory COVID-19 Amb ulatory Lab Routine Acute frontal sinusitis, recurrence not specified 03/07/2020 11:12 AM EDT [place] End: 03-16-2020 COVID-19, PCR COVID-19, PCR Lab Routine One Time for 1 Occurrences starting 03/16/2020 until 03/16/2020 [place] Comment on above: One Time for 1 Occurrences starting 02/27 until 03/16/2020 End: 03-03-2020 Culture, Urine Culture, Urine Microbiology Routine Gross hematuria 1 Occurrences starting 03/03/2020 until 03/03/2020 [place] Comment on above: 1 Occurrences starting 03/03/2020 until 03/03/2020 Culture, Urine [place] End: 06-30-2022 Culture, Urine [facility] Work Phone: Comment on above: One Time for 1 Occurrences starting 05/2022 until 06/30/2022 [facility] [facility] [place], [place] Comment on above: Release Upon Ordering for 1 Occurrences starting 10/05/2019 Initiate Oxygen Therapy Protocol Initiate Oxygen Therapy Protocol Respiratory Care Routine Daily until discontinued starting 10/05/2019 [place] Comment on above: Daily until discontinued starting 2019 Patient Education Depression, Ad ult (DC) [facility] DC Instructions [facility] Work Phone: Patient referral [facility] Work Phone: Phase I & II - metered glucose P hase I & II - metered glucose Point of Care Testing Routine As Needed until discontinued starting 10/05/2019 [facility] [place] Comment on above: As Needed until discontinued starting End: 10-05-2019 POC Urine Qual POC Urine Qual Point of Care Testing Routine One Time for 1 Occurrences starting 10/05/2019 until 10/05/2019 [place] Comment on above: One Time for 1 Occurrences starting 12/2019 until 10/05/2019 Surgical Pathology Surgical Path ology Lab Routine Release Upon Ordering for 1 Occurrences starting 10/05/2019 [place] Comment on above: Release Upon Ordering for 1 Occurrences starting 10/05/2019 End: 02-06-2019 Urine culture clean catch Urine culture clean catch Microbiology Routine Gross hematuria Urgency of urination 1 Occurrences starting 02/06/2019 until 02/06/2019 [place] Comment on above: 1 Occurrences starting 02/06/2019 until 02/06/2019 Urine culture clean catch Urine culture clean catch Microbiology Routine Gross hematuria Urgency of urination 02/06/2019 12:22 PM EDT [place] Immunizations Immunization Date Immunization Notes Care Provider Frank blanco 09-23-2022 RHO(D) immune globulin- IV or IM Matthew Lemus DO Work Phone: [facility] 09-17-2022 RHO(D) immune globulin- IV or IM Matthew Lemus DO Work Phone: [facility] 09-17-2022 tetanus toxoid, reduced diphtheria toxoid, and acellular pertussis vaccine, adsorbed Rishi MARSHALL [facility] 01-05-2022 Tubersol [employer] 12-23-2021 [employer]ol [employer] 04-28-2021 influenza virus vaccine, unspecified formulation Rishi MARSHALL [facility] 04-28-2021 influenza, injectabl e, quadrivalent, preservative free Matthew Lemus DO Work Phone: [facility] 03-17-2021 COVID-19, Pfizer, 30mcg/0.3ml Bridgette Debbie [place] [employer] 02-28-2021 SARS-CoV-2 (COVID-19 ) mRNA BNT-162b2 vax [employer] 02-27-2021 SARS-CoV-2 (COVID-19 ) Ad26 vaccine, recombinant [employer] [facility] [facility] 02-08-2021 SARS-CoV-2 (COVID-19 ) mRNA BNT-162b2 vax Rishi Twiigg [facility] 01-28-2021 SARS-CoV-2 (COVID-19 ) Ad26 vaccine, recombinant [employer] [facility] 01-20-2021 COVID-19, Pfizer, 30mcg/0.3ml Bridgette [facility] [employer] 05-02-2018 influenza virus vaccine, unspecified formulation [facility] [place] [place] 01-27-2016 Influenza Vaccine, unspecified formulation [facility] [place] 01-27-2016 influenza virus vaccine, unspecified formulation [employer] [facility] 01-27-2016 influenza, seasonal, injectable, preservative free Matthew Miltons DO Work Phone: [facility] 12-29-2015 hepatitis B vaccine, adult dosage Rishi MARSHALL [facility] 12-17-2015 hepatitis B vaccine, adult dosage Matthew Lemus DO Work Phone: [facility] 12-17-2015 hepatitis B vaccine, unspecified formulation [facility] 11-26-2015 hepatitis B vaccine, adult dosage Rishi MARSHALL [facility] 11-11-2015 diphtheria, tetanus toxoids and acellular pertussis vaccine [facility] 11-11-2015 tetanus toxoid, reduced diphtheria toxoid, and acellular pertussis vaccine, adsorbed Rishi MARSHALL [facility] 01-08-2014 tetanus toxoid, reduced diphtheria toxoid, and acellular pertussis vaccine, adsorbed Rishi MARSHALL [facility] 01-08-2014 varicella virus vaccine Rishi MARSHALL [facility] 10-17-2002 diphtheria, tetanus toxoids and acellular pertussis vaccine, unspecified formulation Matthew Lemus DO Work Phone: [facility] 10-17-2002 DTaP, unspecified formulation Rishi MARSHALL [facility] 10-17-2002 measles, mumps and rubella virus vaccine [facility], [place] 10-17-2002 poliovirus vaccine, inactivated [facility] [place] 10-17-2002 poliovirus vaccine, unspecified formulation Matthew Lemus DO Work Phone: [facility] 10-17-2002 tetanus toxoid, reduced diphtheria toxoid, and acellular pertussis vaccine, adsorbed Matthew Lemus DO Work Phone: [facility] 05-17-1998 haemophilus influenz ae type b vaccine, conjugate unspecified formulation Matthew Lemus DO Work Phone: [facility] 05-17-1998 Hib, unspecified [facility], [place] 05-17-1998 poliovirus vaccine, inactivated [facility], [place] 03-27-1998 diphtheria, tetanus toxoids and acellular pertussis vaccine [place] 03-27-1998 diphtheria, tetanus toxoids and acellular pertussis vaccine, unspecified formulation Matthew Lemus DO Work Phone: [facility] 03-27-1998 DTaP, unspecified formulation Rishi MARSHALL [facility] 03-27-1998 haemophilus influenz ae type b vaccine, conjugate unspecified formulation Matthew Lemus DO Work Phone: [facility] 03-27-1998 haemophilus influenz ae type b vaccine, HbOC conjugate Matthew Lemus DO Work Phone: [facility] 03-27-1998 Hib, unspecified [facility] [place] 03-27-1998 measles, mumps and rubella virus vaccine [facility], [place] 03-27-1998 tetanus toxoid, reduced diphtheria toxoid, and acellular pertussis vaccine, adsorbed Matthew Lemus DO Work Phone: [facility] 1997 diphtheria, tetanus toxoids and acellular pertussis vaccine [facility] [place] 1997 diphtheria, tetanus toxoids and acellular pertussis vaccine, unspecified formulation Matthew Lemus DO Work Phone: [facility] 1997 DTaP, unspecified formulation Rishi MARSHALL [facility] 1997 haemophilus influenz ae type b conjugate and Hepatitis B vaccine Matthew Lemus DO Work Phone: [facility] 1997 haemophilus influenz ae type b vaccine, conjugate unspecified formulation Matthew Lemus DO Work Phone: [facility] 1997 hepatitis B vaccine, adult dosage Matthew Lemus Work Phone: [facility] Work Phone: 1997 hepatitis B vaccine, unspecified formulation [facility], [place] 1997 Hib, unspecified [facility] [place] [facility] poliovirus vaccine, inactivated [facility] [place] 1997 tetanus toxoid, reduced diphtheria toxoid, and acellular pertussis vaccine, adsorbed Matthew Lemus DO Work Phone: [facility] 1997 trivalent poliovirus vaccine, live, oral Matthew Lemus DO Work Phone: [facility] 1997 diphtheria, tetanus toxoids and acellular pertussis vaccine [facility], [place] 1997 diphtheria, tetanus toxoids and acellular pertussis vaccine, unspecified formulation Matthew Lemus DO Work Phone: [facility] 1997 DTaP, unspecified formulation Rishi MARSHALL [facility] 1997 haemophilus influenz ae type b vaccine, HbOC conjugate Matthew Lemus DO Work Phone: [facility] 1997 tetanus toxoid, reduced diphtheria toxoid, and acellular pertussis vaccine, adsorbed Matthew Lemus DO Work Phone: [facility] 1997 trivalent poliovirus vaccine, live, oral Matthew Lemus DO Work Phone: [facility] 1997 diphtheria, tetanus toxoids and acellular pertussis vaccine [facility], [place] 1997 diphtheria, tetanus toxoids and acellular pertussis vaccine, unspecified formulation Matthew Lemus DO Work Phone: [facility] 1997 DTaP, unspecified formulation Rishi MARSHALL [facility] 1997 haemophilus influenz ae type b vaccine, conjugate unspecified formulation Matthew Lemus DO Work Phone: [facility] 1997 Hib, unspecified [facility] [place] 1997 Hib, unspecified formulation Rishi MARSHALL [facility] 1997 poliovirus vaccine, inactivated [employer] [place], [place] 1997 tetanus toxoid, reduced diphtheria toxoid, and acellular pertussis vaccine, adsorbed Matthew Lemus DO Work Phone: [facility] 1997 trivalent poliovirus vaccine, live, oral Matthew Lemus DO Work Phone: [facility] 1997 hepatitis B vaccine, adult dosage Matthew Lemus Work Phone: [facility] Work Phone: 1997 hepatitis B vaccine, pediatric or pediatric/adolescent dosage Rishimaricel MARSHALL [facility] 1997 hepatitis B vaccine, unspecified formulation Lisseth [place], [place] 1997 hepatitis B vaccine, adult dosage Matthew Lemus Work Phone: [facility] Work Phone: 1997 hepatitis B vaccine, pediatric or pediatric/adolescent dosage Rishimaricel MARSHALL [facility] 1997 hepatitis B vaccine, unspecified formulation Lisseth [facility] [place] [place] Payers Date Payer Category Payer Worker's Compensation [id number] Unknown 2023 Unknown [id number] 2022 Medicaid [id number] 2015 Unknown BC[place] P PO xxxxxxxxxxxx 2015-Present [address] [place] [address] xxxxxxxxxxxx [id number] 1997 Unknown [id number] 2.16.840.1.506355.3.579.2. 177 1997 Unknown [id number] 2.16.840.1.149064.3.579.2. 177 1997 Unknown [id number] 2.16.840.1.454534.3.579.2. 175 1997 Unknown [id number] 2.16.840.1.611343.3.579.2. 593 1997 Unknown [id number] 2.16.840.1.795503.3.579.2. 593 1997 Unknown [id number] 2.16.840.1.590518.3.579.2. 593 1997 Unknown [id number] 2.16.840.1.770708.3.579.2. 593 1997 Unknown [id number] 2.16.840.1.632016.3.579.2. 593 1997 Unknown [id number] 2.16.840.1.598756.3.579.2. 593 1997 Unknown [id number] 2.16.840.1.592877.3.579.2. 593 1997 Unknown [id number] 2.16.840.1.287793.3.579.2. 593 1997 Unknown [id number] 2.16.840.1.598525.3.579.2. 593 1997 Unknown [id number] 2.16.840.1.715864.3.579.2. 593 1997 Unknown [id number] 2.16.840.1.062960.3.579.2. 593 1997 Unknown [id number] 2.16.840.1.808238.3.579.2. 593 1997 Unknown [id number] 2.16.840.1.108345.3.579.2. 593 1997 Unknown [id number] 2.16.840.1.388655.3.579.2. 593 1997 Unknown [id number] 2.16.840.1.554975.3.579.2. 593 1997 Unknown [id number] 2.16.840.1.280853.3.579.2. 593 1997 Unknown [id number] 2.16.840.1.331021.3.579.2. 593 1997 Unknown [id number] 2.16.840.1.368826.3.579.2. 593 1997 Unknown [id number] 2.16.840.1.156855.3.579.2. 593 1997 Unknown [id number] 2.16.840.1.505290.3.579.2. 727 1997 Unknown [id number] 2.16.840.1.335232.3.579.2. 727 1997 Unknown [id number] 2.16.840.1.202612.3.579.2. 727 1997 Unknown [id number] 2.16.840.1.890574.3.579.2. 727 1997 Unknown [id number] 2.16.840.1.754145.3.579.2. 1286 1997 Unknown [id number] 2.16.840.1.751594.3.579.2. 1286 1997 Unknown [id number] 2.16.840.1.491752.3.579.2. 1286 1997 Unknown [id number] 2.16.840.1.112364.3.579.2. 1286 1997 Unknown [id number] 2.16.840.1.404262.3.579.2. 1286 1997 Unknown [id number] 2.16.840.1.702554.3.579.2. 173 1997 Unknown [id number] 2.16.840.1.585847.3.579.2. 173 1997 Unknown [id number] 2.16.840.1.518313.3.579.2. 173 1997 Unknown [id number] 2.16.840.1.987334.3.579.2. 173 1997 Unknown [id number] 2.16.840.1.468479.3.579.2. 173 1997 Unknown [id number] 2.16.840.1.240017.3.579.2. 173 1997 Unknown [id number] 2.16.840.1.010041.3.579.2. 1259 1997 Unknown [id number] 2.16.840.1.965844.3.579.2. 1259 1997 Unknown [id number] 2.16.840.1.565156.3.579.2. 1259 1997 Unknown [id number] 2.16.840.1.970871.3.579.2. 1259 1997 Unknown [id number] 2.16.840.1.476972.3.579.2. 1259 1997 Unknown [id number] 2.16.840.1.797625.3.579.2. 1259 1997 Unknown [id number] 2.16.840.1.670368.3.579.2. 1259 1997 Unknown [id number] 2.16.840.1.029371.3.579.2. 1259 1997 Unknown [id number] 2.840.1.484899.3.579.2. 1286 1997 Unknown [id number] 2.840.1.101379.3.579.2. 1286 1997 Unknown [id number] 2.840.1.677503.3.579.2. 1286 1997 Unknown [id number] 2.840.1.969165.3.579.2. 1286 1997 Unknown [id number] 2.840.1.466331.3.579.2. 1286 1959 Self-pay [id number] 1959 Unknown [id number] 1959 Unknown [id number] .1.654063.3.441 1959 Unknown [id number] Unknown [id number] 840.1.277710.3.579.2. 531 Unknown [id number] 840.1.356007.3.579.2. 531 Unknown [id number] .840.1.383589.3.579.2. 531 Unknown [id number] 2.840.1.424132.3.579.2. 531 Unknown [id number] 2.840.1.754668.3.579.2. 531 Unknown [id number] 2.840.1.636495.3.579.2. 531 Social History Date Type Detail Facility Start: 02-06-2019 End: 05-19-2023 Tobacco smoking status NHIS Never smoker [facility] Start: 02-06-2019 End: 04-26-2022 Alcohol intake No [facility] Start: 1995 Sex Assigned At Not on file [facility] Start: 07-31-2019 End: 10-05-2019 Alcohol intake Current non-drinker of alcohol (finding) [facility] ZOIE Exposure to SARS-CoV -2 (event) Unable to assess [facility] Start: 03-03-2020 End: 11-10-2021 Tobacco use and exposure Never used [employer] [facility]IE Ramírez Start: 03-03-2020 End: 07-07-2023 Alcohol intake Current drinker of alcohol (finding) [facility] Start: 03-03-2020 Alcohol Comment occasional [facility] Start: 10-01-2021 End: 06-30-2022 Exposure to SARS-CoV-2 (event) Not sure [facility] Tobacco smoking status Never [facility] Start: 04-03-2021 History 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 Financial 5 [employer] Work Phone: Start: 04-03-2021 History SDOH Food Worry 1 [employer] Work Phone: Start: 04-03-2021 History 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 2 [employer] Work Phone: Start: *Tobacco [facility] Start: 1995 Sex Assigned At Female [facility] Tobacco smoking stat us TNIS Tobacco smoking consumption unknown [facility] Start: 11-10-2021 Tobacco smoking status TNIS Ex-smoker [facility] History of tobacco use Current smoker [facility] History of tobacco use Tobacco U se Types Packs/Day Years Used Date Smoking Tobacco: Former Vaping/E-cigarettes Smokeless Tobacco: Never [facility] Start: 04-26-2022 End: 07-07-2023 History of Social function [facility] Do you belong to any clubs or organizations such as hoahaoism groups, unions, fraternal or athletic groups, or [...] 05-10-2023 Functional Status N/A [facility] 02-06-2023 Functional status Patient at Baseline [facility] Work Phone: Mental Status Date Assessment Result Facility 02-06-2023 Cognitive function Cognitive Sta tus Patient at Baseline [facility] Work Phone: Clinical Notes 09-04-2021 to [...] disorder and anxiety and was admitted to [facility] for evaluation and adjustment of her [...] have CT scan and upper GI at [facility]. Both were termed normal except for changes related to her recent kidney stone and bladder manipulation. A review of systems was negative except for the following: General: sleep disturbance Psychiatric: anxiety, mood swings, and now seeing a new mental health provider (Nelly Pederson) out of [place]. Has recently had wholesale changes to her [...] Testing No results found. Matthew Lemus DO., [facility] Office: [phone] documented in this encounter [facility] 05-19-2023 History and physical note Note Date/Time May 19, 2023 1:38pm [facility] [address] [place] [address] Gastroenterology H&P Signed Patient: Lulú Gaitan MR#: [id number] : 1995 Acct:[id number] Age/Sex: 28 / F Adm Date: 3 Loc: Room: Type: [facility] Attending Dr: Fany Ceballos MD Copies to: [...] <Electronically signed by Fany Ceballos MD> 05/19/231337 [facility] Work Phone: 1(197) 862-548812-21-2023 [facility]* Encounter Date Diagnosis Assessment Notes Treatment Notes Treatment Clinical Notes Apr, Abnormal abdominal C T scan (ICD-10 - R93.5) Apr, Pyelonephritis of left kidney (ICD-10 - N12) [facility] Other 12-12-2023 Hospital Discharge instructions Patient Education [...] Follow these instructions at home: Medicines Take lguq-rtf-vqktzwv and prescription medicines only as told by [...] or the blood stops without treatment. Take gpat-ban-fddxilc and prescription medicines only as told by your health care provider. Drink enough fluid to keep your urine pale yellow. This information is not intended to replace advice given to you by your health care provider. Make sure you discuss any questions you have with your health care provider. Document Revised: 01/14/2021 Document Reviewed: 01/14/2021 BoardEvals Patient Education 2022 [employer]. Follow Up Care 05/06/2023 07:59:50 With:ROLANDO DEVLIN, Rishi Ghosh, URL Address: [facility] [address] , [place] [address]- When:Within 4 Month(s) Comments:w/ELYSE [facility] 11-29-2023 Evaluation note* Encounter Date Diagnosis Assessment Notes Treatment Notes Treatment Clinical Notes Mar, Irritable bowel syndrome with constipation (ICD-10 - K58.1) Mar, Delayed gastric emptying (ICD-10 - K30) Mar, Vomiting (ICD-10 - R11.10) [facility] Other 09-15-2023 Evaluation note* Encounter Date Diagnosis [...] no improvement in 2 to 3 days [facility] Other 09-10-2023 Hospital Discharge instructions Additional Instructions Important Contact Information You can call [facility] at [phone] any time day or night if you [...] Text Line (available 20/12) text 4HOPE to [phone] [facility] Hope Line (available 8 a.m. Midnight) call [phone] ([phone]) [facility] Work Phone: 1(861) 329-426009-09-2023 Progress note Author Karri Kamara [facility] February 05, 2023 12:00pm Note Date/Time February 05, 2023 12:00pm [facility] [address] [place] [address] Psychiatry Progress Note Signed Patient: Lulú Gaitan MR#: [id number] : 1995 Acct:[id number] Age/Sex: 27 / F Adm Date: 3 Loc: Room: [address] [place] [address] Type : ADM IN Attending Dr: Karri [...] signed by Karri Kamara MD> 02/05/23 1200 [facility] Work Phone: 1(833) 334-237809-08-2023 Progress note Author aKrri Kamara [facility] February 04, 2023 1:43pm Note Date/Time February 04, 2023 1:44pm [facility] [address] [place] [address] Psychiatry Progress Note Signed Patient: Lulú Gaitan MR#: [id number] : 1995 Acct:[id number] Age/Sex: 27 / F Adm Date: 3 Loc: Room: [address] [place] [address] Type : ADM IN Attending Dr: Karri [...] confirmed this with the medical student as tea. Patient reported that she is feeling better. [...] signed by Karri Kamara MD> 02/04/23 1343 [facility] Work Phone: 1(129) 597-595209-07-2023 Miscellaneous Notes* Telephone Encounter - Viviana David [...] list full name of hospital or facility)? [facility] If the patient had a [...] G/J Tube?No Preferred phone number for contact: [phone] [facility] History and physical note Author Karri Kamara [facility] February 03, 2023 11:58am Note Date/Time February 03, 2023 11:58am [facility] [address] [place] [address] Psychiatry H&P Signed Patient: Lulú Gaitan MR#: [id number] : 1995 Acct:[id number] Age/Sex: 27 / F Adm Date: 3 Loc: Room: [address] [place] [address] Type: ADM IN Attending Dr: Karri Kamara [...] she recently saw her psychiatrist at [facility] and was restarted on Latuda. 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 Relationships: Patient states [...] cooperative Thought Process: normal Thought Content: denies ANTOINETTE MORENO, reported SI Insight: fair Judgment: fair Patient [...] feel like current medical regimen is working [facility] Medical History (Updated 02/03/23 @ 10:00 [...] Cloudy A Urine pH 6.0 Ur Specific [place] 1.027 Urine Protein 30 H Urine Glucose [...] Color Urine Appearance Urine pH Ur Specific [place] Urine Protein Urine Glucose (UA) Urine Ketones [...] signed by Karri Kamara MD> 02/03/23 1158 [facility] Work Phone: 1(774) 584-787402-02-2023 History of Present illness Narrative* Jenna Elliott [...] 11:40 PM EST Nurse at bedside from [phone]. Nurse pal[pates pt's abdomen when pt feeling [...] at this time. documented in this [facility] Phone: 1(311) 444-636002-02-2023 Hospital Discharge instructions* Discharge Instructions* Jenna Elliott RN - 07/01/2022 12:27 AM EST OUTPATIENT DISCHARGE Dr. Miguel Aguilera [facility] Dr. Katelynn Leslie [facility] [address] [facility] [address] [place] or Wise Chyna Prakash [facility] [address] [place] [address] [place] [address] ACTIVITY LIMITATIONS: ( x )Up and about [...] AND DELIVERY . documented in this encounterBON [employer] Phone: 1(360) 242-771709-14-2022 History and physical note Author Tae Natarajan [facility] February 10, 2022 5:06pm Note Date/Time February 10, 2022 5:06pm [facility] [address] [place] [address] Vascular Surgery H&P Signed Patient: Lulú Gaitan MR#: [id number] : 1995 Acct:[id number] Age/Sex: 26 / F Adm Date: 2 Loc: Room: Type: [facility] Attending Dr: Tae Natarajan MD Copies to: MD Matthew Hernandez,~ Date of Service: 02/10/2022 HPI History of Present Illness Chief complaint: Hematuria HPI: Ms. Gaitan is a 26 year old female being evaluated by Dr. Marshall for recurrent gross hematuria. Other evaluation including CT scan has been negative and Dr. Marshall requested diagnostic arteriogram and venogram. [facility] Vaccinated for COVID-19?: Yes Medical History (Updated [...] mg PO DAILY 02/10/22 [History Confirmed 02/10/22] hzdgjmqkfz-vwxsiqgpgafsm-zxdzqhqx 50 mg-300 mg-40 mg capsule (Fioricet) 1 [...] signed by MD Tae Natarajan> 02/10/22 1706 [facility] Work Phone: 1(685) 125-977908-29-2022 Evaluation note* Encounter Date Diagnosis Assessment Notes [...] ahead with arteriogram and venogram as requested. [facility] Other 05-15-2022 Hospital Discharge instructions* Instructions* Christine Vazquez PA-C - 10/11/2021 Take ibuprofen mwho-pfk-dnhxgyq 600 mg 3 times daily as needed for pain. Follow- up with your primary care provider and discuss additional testing if symptoms not improved. Return to the emergency room for any worsening symptoms. * Attachments The following attachments cannot be sent through Care Everywhere. * Pelvic Pain (Italian) [facility] Work Phone: 1(131) 461-719105-03-2022 Hospital Discharge instructions Patient Education 09/29/2021 13:37:25 [...] Follow these instructions at home: Medicines Take pzuo-ysk-iirwaav and prescription medicines only as told by [...] or the blood stops without treatment. Take mhlq-ljr-tbfhcpf and prescription medicines only as told by your health care provider. Drink enough fluid to keep your urine clear or pale yellow. This information is not intended to replace advice given to you by your health care provider. Make sure you discuss any questions you have with your health care provider. Document Released: 05/16/2006 Document Revised: 10/10/2019 Document Reviewed: 06/18/2017 BoardEvals Patient Education 2019 [employer]. Follow Up Care 09/22/2021 14:13:42 With:ROLANDO DEVLIN, MOHINI Esparza Address: [facility] [address] , [place] [address]- Business (1) When: Unknown [facility] 04-08-2022 Hospital Discharge instructions Patient Education [...] including vitamins, herbs, eye drops, creams, and clqt-ugm-xkwlpjg medicines. Any problems you or family members [...] provider tells you to take them. ?Taking jcgg-qeo-eekyzrq medicines, vitamins, herbs, and supplements. Follow instructions [...] Follow these instructions at home: Medicines Take npvd-dlb-jxweccp and prescription medicines only as told by [...] 05/13/2001 Document Revised: 05/08/2019 Document Reviewed: 05/08/2019 BoardEvals Patient Education 2020 [employer]. Follow Up Care 08/07/2021 15:47:45 With:ROLANDO DEVLIN, Rishi Ghosh, URL Address: [address] [place] [address]- When: Unknown Comments:will schedule Cysto [facility] discharge summary Author Karri Kamara [facility] February 06, 2023 11:04am Note Date/Time February 06, 2023 11:04am [facility] [address] [place] [address] Discharge Summary Signed Patient: Lulú Gaitan MR#: [id number] : 1995 Acct:[id number] Age/Sex: 27 / F Adm Date: 3 Loc: Room: [address] [place] [address]: Karri Kamara MD Copies to: [...] she recently saw her psychiatrist at [facility] and was restarted on Latuda. 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 Midnight) call [phone] ([phone]) Stand Alone Forms: Work/School Release Form Prescriptions: [...] Follow Up: [facility] [Other] (fax:[phone]) FCRS [facility] Flooring Resources Line [Outside] Matthew Lemus DO [Primary Care Provider] - (Please contact for any medical needs or concerns) Documented By: Karri Kamara MD 02/06/23 1103 Signed By: <Electronically signed by Karri Kamara MD> 02/06/23 1104 [facility] Work Phone: Evaluation + Plan note No data available for this section [facility] evaluation + Plan note Future Appointments Appointment Date:02/05/2022 09:45:00 AM Scheduled Provider:Rishi MARSHALL MD Location:[facility] Appointment Type:URO Office Visit [facility] Evaluation + Plan note Future Appointments Appointment Date:09/27/2023 10:15:00 AM Scheduled Provider:Rishi MARSHALL MD Location:[facility] access hospital Appointment Type:URO Office Visit [facility] evaluation note* Diagnosis Lower abdominal pain- Primary Abdominal pain, other specified site documented in this encounter [employer] Phone: evaluation note* Diagnosis Onset Date Resolution Status Hematuria acute [facility] Work Phone: evaluation note* Diagnosis Hyperemesis- Primary Persistent vomiting Pelvic cramping Unspecified symptom associated with female genital organs documented in this encounter MARTHA RITCHIE [employer] Phone: evalkykzcf note* Diagnosis Onset Date Resolution Status Bipolar 1 disorder acute Depression acute Major depressive disorder, recurrent acute Suicidal ideation acute [facility] Work Phone: evalunzgoe noteNo assessment information available [facility] Work Phone: evaluation note* Diagnosis Bipolar 1 [...] History umbilical hernia repair Hospitalization History 1 [facility] 2020 Hospitalization History as a child for stomach p ain [employer] [facility]no Other History general Narrative - Reported* Type Description Date Medical History migraine headache Medical History endometriosis Medical History PCOS Medical History borderline personality disorder Medical History bipolar Medical History anxiety Medical History chronic depression Surgical History laparoscopy x3 female Surgical History umbilical hernia repair Hospitalization History 1 [facility] 2020 Hospitalization History as a child for stomach p ain Hospitalization History LATUDA REACTION 1 [facility] 02/02/2023 [facility] Kno Other Hospital Discharge instructions Additional Instructions Hold Metformin for 2 days. No heavy lifting of anything over 5 pounds. No pushing or pulling. No vigorous activity. Remove dressing in 24 hours.[facility] Work Phone: Hospital Discharge instructions Additional [...] stomach, liquids high in sugar content (soda, Prseton-Aid, non-acid juices) are recommended. - Do NOT smoke. - Do take it easy today. You need not stay in bed, but avoid strenuous activities such as jogging or working out. FOLLOW UP & RECOMMENDATIONS: -Notify the doctor if you have any problems. -Follow up with PCP. -Office number [phone]. [facility] Work Phone: Hospital Discharge instructions No data available for this section [facility] InstructionsNot on filedocumented in this encounter [facility] No data available for this section [facility] Assessments Diagnosis Gross hematuria Urgency of urination Diagnosis Gross hematuria Urgency of urination Diagnosis Gross hematuria Diagnosis Acute frontal sinusitis, recurrence not specified Diagnosis Viral URI with cough Acute upper respiratory infections of unspecified site Diagnosis Intractable nausea and vomiting Persistent vomiting Diagnosis Dysuria Gross hematuria Advance Directives No Advanced Directives Records FoundDocuments on File Type Date Recorded Patient Spacer Type Bar And Segment Expl anation Advance Directives and Living Will Power of Pen Ruler Operator Documents on File Type Date Recorded Patient Spacer Type Bar And Segment Expl anation Advance Directives and Living Will Power of Pen Ruler Operator Documents on File Type Date Recorded Patient Spacer Type Bar And Segment Expl anation ACP-Advance Directive ACP-Power of Pen Ruler Operator Advance Directive Response Recorded Date/ Time Advance [...] Where can you learn more? Go to [email or web address] and sign in to your Edufii account. Enter J454 in the Search Health Information box to learn more about Upper GI Endoscopy: What to Expect at Home. . 9368-5953 [employer], [employer] (previously [employer]). Care instructions adapted under license by [employer]. This care instruction is for use with your licensed healthcare professional. If you have questions about a medical condition or this instruction, always ask your healthcare professional. [employer] disclaims any warranty or liability for your use of this information. Content Version: 9.9.945863; Last Revised: July 19, 2012 Upper GI [...] Where can you learn more? Go to [email or web address] and sign in to your Edufii account. Enter J454 in the Search Health Information box to learn more about Upper GI Endoscopy: What to Expect at Home. . 8781-3465 [employer]. Care instructions adapted under license by [employer]. This care instruction is for use with your licensed healthcare professional. If you have questions about a medical condition or this instruction, always ask your healthcare professional. [employer] disclaims any warranty or liability for your use of this information. Content Version: 9.9.518282; Last Revised: July 19, 2012 Upper GI [...] Where can you learn more? Go to [email or web address] and sign in to your Edufii account. Enter J454 in the Search Health Information box to learn more about Upper GI Endoscopy: What to Expect at Home. . 8926-6760 [employer]. Care instructions adapted under license by [employer]. This care instruction is for use with your licensed healthcare professional. If you have questions about a medical condition or this instruction, always ask your healthcare professional. [employer] disclaims any warranty or liability for your use of this information. Content Version: 9.9.895818; Last Revised: July 19, 2012 Upper GI [...] Where can you learn more? Go to [email or web address] and sign in to your Edu[employer]ii account. Enter J454 in the Search Health Information box to learn more about Upper GI Endoscopy: What to Expect at Home. . 2336-6544 [employer]. Care instructions adapted under license by [employer]. This care instruction is for use with your licensed healthcare professional. If you have questions about a medical condition or this instruction, always ask your healthcare professional. [employer] disclaims any warranty or liability for your use of this information. Content Version: 9.9.352872; Last Revised: July 19, 2012 Upper GI [...] Where can you learn more? Go to [email or web address] and sign in to your Edufii account. Enter J454 in the [employer] [facility] Information box to learn more about Upper GI Endoscopy: What to Expect at Home. . 7630-6432 [employer], [employer] (previously [employer]). Care instructions adapted under license by [employer]. This care instruction is for use with your licensed healthcare professional. If you have questions about a medical condition or this instruction, always ask your healthcare professional. [employer] disclaims any warranty or liability for your use of this information. Content Version: 9.9.987088; Last Revised: July 19, 2012 Upper GI [...] Where can you learn more? Go to [email or web address] and sign in to your Edufii account. Enter J454 in the Search Health Information box to learn more about Upper GI Endoscopy: What to Expect at Home. . 5215-6995 [employer]. Care instructions adapted under license by [employer]. This care instruction is for use with your licensed healthcare professional. If you have questions about a medical condition or this instruction, always ask your healthcare professional. [employer] disclaims any warranty or liability for your use of this information. Content Version: 9.9.892114; Last Revised: July 19, 2012 Upper GI [...] the day after the test, use an ahsh-ack-cjurkti spray to numb your throat. Follow-up care [...] Where can you learn more? Go to [email or web address] and sign in to your Edufii account. Enter J454 in the Search Health Information box to learn more about Upper GI Endoscopy: What to Expect at Home. If you do not have an account, please click on the Sign Up Now link. Current as of: January 07, 2019Content Version: 12.4 [employer]. Care instructions adapted under license by [employer]. If you have questions about a medical condition or this instruction, always ask your healthcare professional. [employer] disclaims any warranty or liability for your use of this information. documented in this encounter* Attachments The following attachments cannot be sent through Care Everywhere. * URI (Upper Respiratory Infection): Viral (Italian) documented in this encounter Summary Purpose Family History No Family History Records Found Relationship Condition Age at Onset Recorded Date/T debbi Not Specified Hypertension Unknown father Anxiety Unknown father Depression Unknown Relationship Condition Age at Onset Recorded Date/T debbi mother Hypertension Unknown father Anxiety Unknown father Depression Unknown father Family history of mental disorder Unknown Heart disease Unknown Reason for Referral Status Reason Specialty Diagnoses / Procedures Referred By Contact Referred To Contact Pending Review Radiology Diagnoses Intractable nausea and vomiting Procedures NM HEPATOBILIARY SCAN W EJECTION FRACTION Toño Blanc MD [address] [place] [address] Chief Complaint and Reason for Visit Chief Complaint Gross Hematuria, Fla nk Pain Reason for Visit Hematuria Chief Complaint Mental eval Reason for Visit Bipolar 1 disorder Depression Major depressive disorder, recurrent Suicidal ideation Chief Complaint K58.1 k30 r11.10 Chief Complaint K58.1 k30 r11.10 Vomiting Chief Complaint CALDWELL Chief Complaint CALDWELL Unknown Additional Source Comments Reason for Visit (unrecogniz ed section and content) Status Reason Specialty Diagnoses / Procedures Re ferred By Contact Referred To Contact Diagnoses Dysphagia DX DYSPHAGIA Procedures [place] ESOPHAGOGASTRODUODENOSCOPY TRANSORAL DIAGNOSTIC EGD ESOPHAGOGASTRODUODENOSCOPY Toño Blanc MD [address] [place] [address] [facility] Reason Comments Cough pt states onset last week. PT states she is taking Prednisone and Keflex for a sinus infection Status Reason Specialty Diagnoses / Procedures Referred By Contact Referred To Contact Not Required - [place] Radiology Diagnoses Nausea with vomiting, unspecified Procedures HC NM HEPATOBILIARY IMAGING W PHARM Toño Blanc MD [address] [place] [address] [facility] Nuclear Medicine [facility] [place] [address] Reason Comments Abdominal Cramping onset this am [...] section and content) DATE CREATED AUTHOR 10/15/2019 [facility] DATE CREATED AUTHOR AUTHOR'S ORGANIZ ATION 03/07/2020 [facility] DATE CREATED AUTHOR AUTHOR'S ORGANIZ ATION 07/27/2021 [facility] DATE CREATED AUTHOR AUTHOR'S ORGANIZ ATION 09/24/2022 [facility] DATE CREATED AUTHOR AUTHOR'S ORGANIZ ATION 02/12/2023 [facility] DATE CREATED AUTHOR AUTHOR'S ORGANIZ ATION 11/09/2023 [facility] DATE CREATED AUTHOR AUTHOR'S ORGANIZ ATION 01/12/2024 [facility] DATE CREATED AUTHOR AUTHOR'S ORGANIZ ATION 01/12/2024 [facility] DATE CREATED AUTHOR AUTHOR'S ORGANIZ ATION 01/15/2024 [facility] DATE CREATED AUTHOR AUTHOR'S ORGANIZ ATION 01/17/2024 [facility] DATE CREATED AUTHOR AUTHOR'S ORGANIZ ATION 01/24/2024 [facility] DATE CREATED AUTHOR AUTHOR'S ORGANIZ ATION 01/25/2024 [facility] Scheduled Active and Recently Administ ered Medications [...] 4 mg, IntraVENous, ONCE, 1 dose, On Tue10/11/21 at 1630 1628 (Given - Provid er: [...] Kamara MD Admit Provider, Attending Provider Active Office Clerk Routine Relationship Specialty Start Date End Date Matthew Lemus [address] [place] [phone] PCP - General Internal Medicine 10/11/21 Office Clerk Routine Relationship Specialty Start Date End Date Matthew Lemus [address] [place] [address] PCP - General Internal Medicine 10/11/21 Team Status: Inactive Member Role Status Dates Matthew Lemus DO Primary Care Provider Active Tae Natarajan MD Attending Provider Active Office Clerk Routine Relationship Specialty Start Date End Date Bridgette Lewis MD [address] [place] [address] PCP - General Internal Medicine 06/30/22 Office Clerk Routine Relationship Specialty Start Date End Date Agustin Ramosannchance [address] [place] [phone] PCP - General 01/27/04 Team Status: Inactive Member Role Status Dates Matthew Lemus DO Primary Care Provider Active Fany Ceballos MD Attending Provider Active Office Clerk Routine Relationship Specialty Start Date End Date Matthew Lemus DO [address] [facility] [place] [address] PCP - General Internal Medicine 12/19/22 Team Status: Inactive Member Role Status Dates Matthew Lemus DO Primary Care Provide r, Attending Provider Active Start: December 29, 2023 End: December 29, 2023 Team Status: Inactive Member Role Status Dates Ron BiancaDO christina Attending Provider Active Start : January 16, 2024 End: January 16, 2024 Goals (unrecognized section and content) Goals may be documented in a n alternate section Source Comments (unrecognize d section and content) In the event this informatio n is protected by the Federal Confidentiality of Alcohol and Drug Abuse Patient Records regulations: The Federal rules restrict any use of the information to criminally investigate or prosecute any alcohol or drug abuse patient.[facility] FOR RECORDS PERTAINING TO PATIENTS WHO [...] BE BASED ON THE PRIMARY CLINICAL RECORDS. [employer] [facility]. provides no warranty or guarantee of the accuracy or completeness of information in this document.
[2024-02-06] MEDS: 0.9 % SODIUM CHLORIDE 1,000 ML 1000 ML IV (21:05)
[2024-02-06] MEDS: ONDANSETRON PF 4 MG/2 ML VIAL IV (21:05)
[2024-02-06] MEDS: KETOROLAC TROMETHAMINE 30 MG/ML VIAL IVP (21:06)
[2024-02-06 21:25] LABS: Basophils Absolute Auto 0.1 10^3/uL (0.0-0.1); Eosinophils Percent Auto 0.6 % (0.9-7.0); Hematocrit 37.5 % (36.0-48.0); Hemoglobin 12.6 g/dL (12.0-16.0); Immature Granulocytes Abs Auto 0.02 10^3/uL (0.00-0.03); Immature Granulocytes Pct Auto 0.3 % (0.0-0.5); Lymphocytes Absolute Auto 2.6 10^3/uL (1.2-3.8); Lymphocytes Percent Auto 37.6 % (20.5-60.0); Mean Corpuscular HGB Conc 33.6 g/dL (29.9-35.2); Mean Corpuscular Hemoglobin 29.8 pg (26.7-34.0); Mean Corpuscular Volume 88.7 fL (81.0-99.0); Mean Platelet Volume 10.1 fL (9.5-13.5); Monocytes Absolute Auto 0.6 10^3/uL (0.3-0.8); Monocytes Percent Auto 8.1 % (1.7-12.0); Neutrophils Absolute Auto 3.6 10^3/uL (1.4-6.5); Neutrophils Percent Auto 52.4 % (43.0-75.0); Platelet Count 307 10^3/uL (150-450); Red Blood Count 4.23 10^6/uL (4.20-5.40); Red Cell Distribution Width 11.9 % (11.0-15.0); White Blood Count 6.9 10^3/uL (4.0-11.0)
--- NOTE | 2024-02-06 21:34 | PC.NURSE ---
pt baton twirler light at this time, pt reports no improvement of pain. pt also reports she believes she is about to have a migraine. Dr. oMra made aware.
[2024-02-06 21:38] LABS: Bilirubin Urine NEGATIVE (NEGATIVE); Blood Urine NEGATIVE (NEGATIVE); Clarity Urine SL CLOUDY (CLEAR); Color Urine LT. YELLOW (YELLOW); Glucose Urine UA NEGATIVE (NEGATIVE); Ketones Urine NEGATIVE (NEGATIVE); Leukocyte Esterase Urine NEGATIVE (NEGATIVE); Nitrite Urine NEGATIVE (NEGATIVE); Protein Urine NEGATIVE (NEG/TRACE); Specific Gravity Urine 1.015 (1.005-1.025); Urobilinogen Urine 0.2 EU/dL (0.2-1.0)
[2024-02-06 21:42] LABS: HCG Qualitative Urine* NEGATIVE (NEGATIVE); Internal Control Within Normal Limits
[2024-02-06 21:45] LABS: Internal Control Within Normal Limits; SARS-CoV-2 Ag NEGATIVE (NEGATIVE)
[2024-02-06 21:52] LABS: Alanine Aminotransferase 14 U/L (14-59); Albumin Globulin Ratio 1.2; Albumin Level 3.7 g/dL (3.4-5.0); Alkaline Phosphatase 66 U/L (46-116); Anion Gap 10.8; Aspartate Amino Transferase 15 U/L (15-37); BUN Creatinine Ratio 13.9; Bilirubin Total 0.6 mg/dL (0.2-1.0); Calcium 8.7 mg/dL (8.5-10.1); Carbon Dioxide 27.9 mmol/L (21.0-32.0); Chloride 106 mmol/L (98-107); Estimated GFR (African America >60 (>=60); Estimated GFR (Non-African Ame >60 (>=60); Glucose 99 mg/dL (74-106); Potassium 3.7 mmol/L (3.5-5.1); Sodium 141 mmol/L (136-145); Total Protein 6.7 g/dL (6.4-8.2)
[2024-02-06 22:04] LABS: Bacteria Urine TRACE #/HPF (NONE SEEN); Cast Seen? NONE SEEN #/LPF (NONE SEEN); Crystals Seen? None Seen #/HPF (None Seen); Mucus Urine NONE SEEN (NONE SEEN); RBC Urine 0-2 #/HPF (0-2); WBC Urine 0-2 #/HPF (NONE SEEN)
[2024-02-06 22:06] LABS: Amorphous Sediment Urine FEW; Squamous Epithelial Cell Urine RARE #/LPF (NONE/RARE)
[2024-02-06] MEDS: OXYCODONE HCL/ACETAMINOPHEN 5MG/325MG 1 TAB PO (22:32)
[2024-02-06] MEDS: OXYCODONE HCL/ACETAMINOPHEN 5MG/325MG 2 TAB PO (22:32)
[2024-02-06 22:34] VITALS: PULSE 84; O2SAT 98
== END 2024-02-06 22:36 | disposition home or self-care (01) ==
PROVIDERS: Emergency Provider Emergency Medicine; PCP Internal Medicine
DX: N92.1 Excessive and frequent menstruation with irregular cycle (principal); Z87.891 Personal history of nicotine dependence; N80.9 Endometriosis, unspecified
CPT/HCPCS: 36415; 80053; 81001; 84703; 85025; 87811; 96374; 96375; 99284; J1885; J2405

== ENCOUNTER 2024-02-13 16:27 | Outpatient (OUT) | payer BC, OTHER, SELFPAY ==
--- OUTSIDE RECORDS SUMMARY | 2024-02-13 16:36 | XMS_ITS | CCD ---
Author Organization [facility] Informat ion Partnership GREEN MATERIAL VALUE ADDED ASSESSOR [facility] Care Team Providers Care Casing In Line Feeder Name Role Phone Lisseth Johnson Primary Care Provider TOÑO BLANC Admitting Unavailable TOÑO BLANC Attending Unavailable LISSETH JOHNSON Primary Care Unavailable TOÑO BLANC Referring Unavailable LISSETH JOHNSON Primary Care Unavailable Lisseth Johnson Primary Care Provider [phone] BRIANA RUBIO Referring Unavailable LISSETH JOHNSON Primary Care Unavailable MATTHEW LEMUS Primary Care Physician Matthew Lemus Primary Care Provider [phone] Unavailable Primary Care Physician Unavailab le Lisa Primary Care Physician Unavailab le Unavailable Primary Care Physician Unavailab Bridgette Bennett Primary Care Physician Julianava ilBridgette Trimble Unavailable Unavailable Tae Natarajan Unavailable Bridgette Lewis Primary Care Physician Unava ilBridgette Trimble Primary Care Physician Unava ilKaleigh Stewart Primary Care Physician DO Matthew Arango Primary Care Provider MD Tae Natarajan Attending Provider [phone] Kaleigh Guevara Primary Care Physician Bridgette Medina Primary Care Physician Unava ilMaricel Canela Primary Care Physician Unavailab le Maricel Stafford Primary Care Physician Unavailab le Bridgette Lewis Primary Care Physician Unava ilBridgette Trimble Primary Care Physician Unava ilBridgette Trimble Primary Care Physician Unava ilBridgette Trimble MD Primary Care Provider [phone] DR MATTHEW LEMUS Primary Care Unavailable BIANCA ., DR PEÑA Admitting Unavailable BIANCA ., DR PEÑA Attending Unavailable BIANCA ., DR PEÑA Consulting Unavailable ZIEBER, DR KAROL Ghosh Consulting Unavailable YUHAS, DR CSATRO Primary Care Unavailable BIANCA ., DR PEÑA [...] Unavailable BIANCA ., DR PEÑA Admitting Unavailable BAINCA ., DR PEÑA Consulting Unavailable BIANCA ., [...] Admitting Unavailable FABY ., AUDELIA Consulting Unavailable YUDIANNES, DR CASTRO Primary Care Unavailable FABY ., AUDELIA Admitting Unavailable FABY ., AUDELIA Attending Unavailable YUHAS, DR CASTRO Primary Care Unavailable PAY ., DR THURMAN Consulting Unavailable JEFERSON, DR CASTRO Attending Unavailable JEFERSON, DR CSATRO Admitting Unavailable SYDNEYCHNY ., WM CORREA Consulting UnavailISIDRO Manrique Consulting Unavailable GOVIND JOHNSTON Consulting Unavailable Agustin Ramos Primary Care Provider DO Matthew Lemus Primary Care Provider [phone] MD Matthew Leslie Emergency Provider [phone] MD Karri Kamara Admit Provider MD Karri Kamara Attending Provider [phone] Sarah Anderson Unavailable Fany Ceballos Unavailable DO Matthew Lemus Primary Care Provider MD Fany Ceballos Attending Provider [phone] Matthew Lemus DO Primary Care Provider Rishi MARSHALL Attending Unavailable BRIDGETTE LEWIS Primary Care Unavailable Rishi MARSHALL Attending Unavailable MARSHALL, Rishi R Attending Unavailable ARIE, BRIDGETTE Primary Care Unavailable Rishi MARSHALL Attending Unavailable Yudiannes, DO Matthew Primary Care Provider Yujulien, DO Castro Attending Provider SHIREEN CHAVEZ Referring Unavailable YUHAS, MATTHEW L Primary Care Unavailable ARIE, BRIDGETTE A Primary Care Unavailable VINOD CLARK Attending Unavailable ARIE, BRIDGETTE A Primary Care Unavailable LIZZETTE RIBEIRO Attending Unavailable ARIE, BRIDGETTE A Primary Care Unavailable COURTNEY VAUGHAN Attending Unavailable ARIE, BRIDGETTE A Primary Care Unavailable ARIE, BRIDGETTE A Primary Care Unavailable ARIE, BRIDGETTE A Primary Care Unavailable RAYBARAKN Attending Unavailable BIANCA, RON Attending Unavailable BIANCA, RON Attending Unavailable BIANCA, RON Attending Unavailable BIANCA, RON Attending Unavailable AUDELIA HOBBS Attending Unavailable BIANCA, RON Attending Unavailable BIANCA, RON Attending Unavailable BIANCA, RON Attending Unavailable Bianca, DO Ron Attending Provider Casper Arteaga Admitting Unavailab le Casper Arteaga Attending Unavailab le Yuhas, Matthew Primary Care Unavailable Asad, Karri Admitting Unavailable Asad, Karri Attending Unavailable Yuhas, Matthew Primary Care Unavailable Yuhas, Matthew Admitting Unavailable Yuhas, Mtathew Primary Care Unavailable Yuhas, Matthew Attending Unavailable Asaad, Imad Admitting Unavailable [...] CURRY Attending Unavailable IFTIKHAR CURRY Referring Unavailable YUHAS, MATTHEW L Primary Care Unavailable YUHAS, MATTHEW L Primary Care Unavailable GOMBASH MELIZA ELIZONDO Attending Unavailab le GOMBASH MIKHAILMELIZA Attending Unavailab le GOMBASH MIKHAILMELIZA Referring Unavailab le YUHAS, MATTHEW L Primary Care Unavailable YUHAS, MATTHEW L Attending Unavailable KARINESMATTHEW Referring Unavailable KARINES MATTHEW Maury Primary Care Unavailable KARINESMATTHEW Attending Unavailable KARINESMATTHEW Referring Unavailable PAMELAHAS, MATTHEW Maury Primary Care Unavailable SHIREEN CHAVEZ Attending Unavailable PAMELAHAS, MATTHEW Maury Referring Unavailable PAMELAHAS, MATTHEW Maury Primary Care Unavailable KARINES, MATTHEW Mendiola Attending Unavailable KARINES MATTHEW Mendiola Referring Unavailable KARINES MATTHEW Mendiola Primary Care Unavailable KARINES, MATTHEW Mendiola Attending Unavailable KARINES, MATTHEW Mendiola Referring Unavailable KARINES, MATTHEW Mendiola Primary Care Unavailable Allergies Allergy Classification Reported Allergen(s) Allergy Type Date of Onset Reaction(s) Facility (14 sources) bee venom Propensity to adverse reactions to drug 07-15-19 15 [place], [place] (17 sources) Erythromycin; Translations: [ERYTHROMYCIN] Drug Allergy 07-15-19 15 Itching, Dermatitis, Rash, Other (See Comments), pain [place], [place] (20 sources) Azithromycin; Translations: [azithromycin] Drug Allergy 06-07-19 19 Unknown (qualifier value), Swelling, Dermatitis, Rash, pain [facility] (6 sources) Bee pollen; Translations: [bee pollen] Drug Allergy Edema (finding) [facility] (6 sources) Bee/Wasp/Ant venom; Translations: [Bee Stings] Drug allergy Unknown (qualifier value) [facility] (14 sources) lamoTRIgine; Translations: [Lamictal] Drug Allergy [facility] (16 sources) lamoTRIgine; Translations: [lamotrigine] Drug Allergy 01-29-20 22 Swelling, Rash, Facial swelling (finding) [facility] (1 source) Azithromycin Drug Allergy [facility] (2 sources) bee venom Drug allergy (disorder) [facility] (1 source) lamoTRIgine Drug Allergy [facility] (11 sources) lurasidone; Translations: [lurasidone] Drug Allergy 02-03-20 Other (See Comments), Suicidal thoughts (finding) [facility] (1 source) Acetaminophen / HYDROcodone; Translations: [acetaminophen-h ydrocodone] Drug Allergy Hallucinations (finding) [facility] (1 source) Azithromycin; Translations: [Zithromax Z-Oscar] Drug Allergy [facility] (3 sources) Acetaminophen; Translations: [acetaminophen] Drug Allergy 12-29-19 Hallucinating [facility] (6 sources) HYDROcodone; Translations: [HYDROCODONE] Drug Allergy 12-29-19 Hallucinating [facility] (3 sources) erythromycin base; Translations: [erythromycin base] Allergy to substance 12-29-19 Rash [facility] (3 sources) Acetaminophen / HYDROcodone; Translations: [HYDROCODONE-JUDIE TAMINOPHEN] Drug Allergy 11-19-19 [facility] (3 sources) BEE VENOM PROTEIN (HONEY BEE); Translations: [BEE VENOM PROTEIN (HONEY BEE)] Propensity to adverse reactions to drug (disorder) 07-15-19 15 [facility] (1 source) Azithromycin Drug Allergy 05-19-20 [facility] (1 source) lamoTRIgine Drug Allergy 05-19-20 [facility] (1 source) lurasidone Drug Allergy 05-19-20 [facility] Medications Current Medications Medication Drug [...] q24hr, # 21 tab(s), Refills(s) 0, Pharmacy: [facility]/pharmacy #[id number], 165, cm, 05/10/23 11:13:00 EST, [...] 2023 12:00am May 18, 2023 2:58pm levonorgestrel 0.569087 mg/hr intrauterine system (1 source) Progestin, Progestin-containing [...] 09/04/21 Status: Ordered take 1 capsule by [facility] once daily in the morning phentermine [...] Daily, # 30 cap(s), Refills(s) 0, Pharmacy: [facility]/pharmacy #[id number], 165, cm, 12/17/21 8:42:00 EDT, [...] 1 capsule by mouth every four hours Rauunrgiwc-Rguievupwzeqk-Vqma (Fioricet) 50-300-40 mg Capsule Discontinued 1 CAP [...] Status: Ordered take 3 tablets by mo [facility] once daily ARIPiprazole (ABILIFY) 5 MG tablet Take 15 mg by mouth daily 0 Active ascorbic acid 250 mg chewable tablet (17 sources) Vitamin C take 2 tablets by mo [facility] once daily Vitamin C 250 mg [...] procedure, # 2 tab(s), Refills(s) 0, Pharmacy: [facility]/pharmacy #[id number], 165, cm, 12/17/21 8:42:00 EDT, [...] # 2 cap(s), Refills(s) 0, [facility], 165, cm, 09/04/21 9:50:00 EDT, Height/Length [...] symptomatic., # 2 tab(s), Refills(s) 0, Pharmacy: [facility]/pharmacy #[id number], 165, cm, 12/17/21 8:42:00 EDT, [...] 60 mg capsule Indications: Bipolar 1 disorder ([facility]) Take 1 capsule (60 mg total) by [...] 11-19-2023 Episodic Other aftercare (1 source) 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; 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] Onset: 09-20-2022 Episodic Other [...] EXPOS COVID-19] Onset: 05-28-2022 Unclassified (1 source) Subacute cough; Translations: [Subacute cough] Onset: 11-17-2023 Unclassified (1 source) Thyroid Problem Onset: 07-07-2023 Urinary tract infections (12 sources) Cystitis; Translations: [...] Anion gap [Moles/Vol] 7 mmol/L Normal 5-15 [facility] Comment on above: Performed By: #### B KEITH, 3040-3, CBCA, LIVR #### [facility] ([id number]) [address] [place] [address] 49096 Calcium [Mass/Vol] 8.5 mg/dL Normal 8.5-10.5 [facility] Comment on above: Performed By: #### B KEITH, 3040-3, CBCA, LIVR #### [facility] ([id number]) [address] [place] [address] 74846 Chloride [Moles/Vol] 108 mmol/L Normal 98-109 [facility] Comment on above: Performed By: #### B KEITH, 3040-3, CBCA, LIVR #### [facility] ([id number]) [address] [place] [address] 43569 CO2 [Moles/Vol] 25 mmol/L Normal 22-32 [facility] Comment on above: Performed By: #### B KEITH, 3040-3, CBCA, LIVR #### [facility] ([id number]) [address] [place] [address] 28642 Creatinine [Mass/Vol] 0.80 mg/dL Normal 0.40-1.00 [facility] Comment on above: Result Comment: METH OD TRACEABLE TO IDMS STANDARD Performed By: #### B KEITH, 3040-3, CBCA, LIVR #### [facility] ([id number]) [address] [place] [address] 14544 eGFR (CKD-EPI) NON-RACE DEPENDENT >90 Normal >59 [facility] Comment on above: Result Comment: Reported eGFR is based on the CKD-EPI 2020 equation that does not use a race coefficient. Performed By: #### B KEITH, 3040-3, CBCA, LIVR #### [facility] ([id number]) [address] [place] [address] 28369 Glucose [Mass/Vol] 100 mg/dL High 65-99 [facility] Comment on above: Performed By: #### B KEITH, 3040-3, CBCA, LIVR #### [facility] ([id number]) [address] [place] [address] 96186 Potassium [Moles/Vol] 3.8 mmol/L Normal 3.5-5.0 [facility] Comment on above: Performed By: #### B KEITH, 3040-3, CBCA, LIVR #### [facility] ([id number]) [address] [place] [address] 14239 Sodium [Moles/Vol] 140 mmol/L Normal 134-146 [facility] Comment on above: Performed By: #### B KEITH, 3040-3, CBCA, LIVR #### [facility] ([id number]) [address] [place] [address], [place] [address] Urea nitrogen [Mass/Vol] 12 mg/dL Normal 5-23 [facility] Comment on above: Performed By: #### B MP, 3040-3, CBCA, LIVR #### [facility] ([id number]) [address] [place] [address] 48889 CBC AND AUTO DIFFon 01-23-20 24 ABSOLUTE BASOPHIL 0.1 X10E9/L Normal 0.0-0.2 [facility] Comment on above: Performed By: #### C BCA, CMP, 97806-5, 23118-1 #### [facility] ([id number]) [address] [place] [address] 09093 ABSOLUTE NEUTROPHIL 3.8 X10E9/L Normal 1.5-6.6 [facility] Comment on above: Performed By: #### C BCA, CMP, 39727-7, 15992-5 #### [facility] ([id number]) [address] [place] [address] 08651 Basophils/100 WBC (Bld) 0.8 % Normal [facility] Comment on above: Performed By: #### C BCA, CMP, 91416-7, 19855-4 #### [facility] ([id number]) [address] [place] [address] 21178 Eosinophils (Bld) [#/Vol] 0.1 10*3/uL Normal 0.0-0.4 [facility] Comment on above: Performed By: #### C BCA, CMP, 58852-2, 68034-7 #### [facility] ([id number]) [address] [place] [address] 39069 Eosinophils/100 WBC (Bld) 0.9 % Normal [facility] Comment on above: Performed By: #### C BCA, CMP, 12412-3, 16735-6 #### [facility] ([id number]) [address] [place] [address] 93433 Erythrocyte distribution width (RBC) [Ratio] 13.2 % Normal 11.5-15.0 [facility] Comment on above: Performed By: #### Franco CHACON CMP, 03283-4, 75236-6 #### [facility] ([id number]) [address] [place] [address] 26796 Hematocrit (Bld) [Volume fraction] 38.9 % Normal 35-47 [facility] Comment on above: Performed By: #### Franco CHACON CMP, 31111-2, 71404-7 #### [facility] ([id number]) [address] [place] [address] 83542 Hemoglobin (Bld) [Mass/Vol] 13.1 g/dL Normal 11.7-15.5 [facility] Comment on above: Performed By: #### Franco CHACON CMP, 64459-3, 72035-8 #### [facility] ([id number]) [address] [place] [address] 07301 Lymphocytes (Bld) [#/Vol] 2.4 10*3/uL Normal 1.0-3.5 [facility] Comment on above: Performed By: #### Franco CHACON CMP, 82106-3, 15875-7 #### [facility] ([id number]) [address] [place] [address] 80936 Lymphocytes/100 WBC (Bld) 34.9 % Normal [facility] Comment on above: Performed By: #### Franco CHACON CMP, 07320-1, 24958-5 #### [facility] ([id number]) [address] [place] [address] 48057 MCH (RBC) [Entitic mass] 30.3 pg Normal 27-34 [facility] Comment on above: Performed By: #### Franco CHACON CMP, 16477-4, 91872-7 #### [facility] ([id number]) [address] [place] [address] 21478 MCHC (RBC) [Mass/Vol] 33.6 g/dL Normal 32-36 [facility] Comment on above: Performed By: #### Franco CHACON, CMP, 60029-6, 43216-7 #### [facility] ([id number]) [address] [place] [address] 37529 MCV (RBC) [Entitic vol] 90 fL Normal 80-100 [facility] Comment on above: Performed By: #### Franco CHACON, CMP, 72638-6, 24989-5 #### [facility] ([id number]) [address] [place] [address] 82429 Monocytes (Bld) [#/Vol] 0.6 10*3/uL Normal 0-0.9 [facility] Comment on above: Performed By: #### Franco BCA, CMP, 15666-2, 57126-7 #### [facility] ([id number]) [address] [place] [address] 66863 Monocytes/100 WBC (Bld) 9.3 % Normal [facility] Comment on above: Performed By: #### Franco CHACON, CMP, 25651-0, 55302-7 #### [facility] ([id number]) [address] [place] [address] 92607 Neutrophils/100 WBC (Bld) 54.1 % Normal [facility] Comment on above: Performed By: #### Franco BCA, CMP, 03815-8, 61923-1 #### [facility] ([id number]) [address] [place] [address] 32107 Platelet mean volume (Bld) [Entitic vol] 8.5 fL Normal 7-12 [facility] Comment on above: Performed By: #### Franco BCA, CMP, 28587-0, 59824-5 #### [facility] ([id number]) [address] [place] [address] 83758 Platelets (Bld) [#/Vol] 342 10*3/uL Normal 150-450 [facility] Comment on above: Performed By: #### C OSWALDO, CMP, 44442-5, 00872-5 #### [facility] ([id number]) [address] [place] [address] 76559 RBC COUNT 4.31 X10E12/L Normal 3.80-5.20 [facility] Comment on above: Performed By: #### C OSWALDO, CMP, 82715-9, 24528-8 #### [facility] ([id number]) [address] [place] [address] 82524 WBC (Bld) [#/Vol] 7.0 10*3/uL Normal 4.0-11.0 [facility] Comment on above: Performed By: #### C OSWALDO, CMP, 01866-7, 35754-1 #### [facility] ([id number]) [address] [place] [address] 70724 HCG ( test) Ql (U)o n 01-23-2024 Beta HCG ( test) Ql (U) Negative Normal NEG [facility] Comment on above: Performed By: #### Franco BCA, CMP, 58408-4, 46093-8 #### [facility] ([id number]) [address] [place] [address] 06300 LIPASEon 01-23-2024 Lipase [Catalytic activity/Vol] 40 U/L Normal 17-40 [facility] Comment on above: Performed By: #### Elvis MP, 3040-3, CBCA, LIVR #### [facility] ([id number]) [address] [place] [address] 33777 LIVER PANELon 01-23-2024 Albumin [Mass/Vol] 4.1 g/dL Normal 3.2-5.3 [facility] Comment on above: Performed By: #### C OSWALDO, CMP, 61432-5, 97606-9 #### [facility] ([id number]) [address] [place] [address] 01702 ALP [Catalytic activity/Vol] 70 U/L Normal 39-130 [facility] Comment on above: Performed By: #### C BCA, CMP, 62597-8, 03024-0 #### [facility] ([id number]) [address] [place] [address] 11124 ALT [Catalytic activity/Vol] 15 U/L Normal 0-31 [facility] Comment on above: Performed By: #### C OSWALDO, CMP, 34304-5, 43206-5 #### [facility] ([id number]) [address] [place] [address] 27119 AST [Catalytic activity/Vol] 15 U/L Normal 0-41 [facility] Comment on above: Performed By: #### C OSWALDO, CMP, 76436-0, 23438-2 #### [facility] ([id number]) [address] [place] [address] 78882 Bilirubin [Mass/Vol] 0.3 mg/dL Normal 0.3-1.2 [facility] Comment on above: Performed By: #### C BCA, CMP, 86467-7, 92288-9 #### [facility] ([id number]) [address] [place] [address] 67944 Bilirubin.indirect [Mass/Vol] mg/dL Normal 0.0-0.4 [facility] Comment on above: Performed By: #### C BCA, CMP, 88770-3, 68427-0 #### [facility] ([id number]) [address] [place] [address] 24451 Protein [Mass/Vol] 7.2 g/dL Normal 6.0-8.0 [facility] Comment on above: Performed By: #### C BCA, CMP, 72827-7, 29935-9 #### [facility] ([id number]) [address] [place] [address] 22375 URN MACROSCOPIC NURon 2023 BILIRUBIN NADYA Negative Normal NEG [facility] Comment on above: Performed By: #### C BCA, CMP, 10704-0, 40342-4 #### [facility] ([id number]) [address] [place] [address] 59220 BLOOD/HGB NADYA Negative Normal NEG [facility] Comment on above: Performed By: #### C BCA, CMP, 89817-7, 49770-0 #### [facility] ([id number]) [address] [place] [address] 47849 GLUCOSE NADYA Negative Normal NEG [facility] Comment on above: Performed By: #### C BCA, CMP, 77074-7, 74028-7 #### [facility] ([id number]) [address] [place] [address] 64239 KETONES NADYA Negative Normal NEG [facility] Comment on above: Performed By: #### C BCA, CMP, 24841-3, 35275-2 #### [facility] ([id number]) [address] [place] [address] [place] [address] LEUKOCYTE ESTERASE NADYA Negative Normal NEG [facility] Comment on above: Performed By: #### C BCA, CMP, 28572-4, 23836-6 #### [facility] ([id number]) [address] [place] [address] 52525 NITRITE NADYA Negative Normal NEG [facility] Comment on above: Performed By: #### C BCA, CMP, 39558-8, 05970-8 #### [facility] ([id number]) [address] [place] [address] 24527 PH NADYA 7.0 Normal 5.0-8.5 [facility] Comment on above: Performed By: #### C PIPO CHACON, 15701-1, 37189-2 #### [facility] ([id number]) [address] [place] [address] 06155 PROTEIN NADYA Negative Normal NEG [facility] Comment on above: Performed By: #### C OSWALDO [facility], 36788-9, 94127-4 #### [facility] ([id number]) [address] [place] [address] 88305 SPECIFIC GRAVITY NADYA 1.025 Normal 1.003-1.035 [facility] Comment on above: Performed By: #### C OSWALDO [facility], 92359-7, 74568-8 #### [facility] ([id number]) [address] [place] [address] 20055 UROBILINOGEN NADYA 0.2 eu/dL Normal <1.1 [facility] Comment on above: Performed By: #### C OSWALDO [facility], 60691-4, 31662-0 #### [facility] ([id number]) [address] [place] [address] 78495 XR SPINE THORACIC 3 VWSon XR SPINE [...] Ramon Ryan DO on 01/23/2024 9:02 AM I, Christine Yoon MD have personally reviewed the image(s) and agree with and/or edited the report Finalized by Christine Yoon MD on 01/23/2024 9:09 AM Normal [facility] Pathology Request for Lab Co rpon 01-16-2024 Pathology Request for Lab Neetu Normal [facility] Comment on above: Order Comment: Name Collection Type:: Clean-Voided Midstream Result Comment: See report. Scanned copy available in EMR. PERFORMED BY: [facility] [address] [facility] [place] [address] PATHOLOGIST HEALTHCARE ECONOMICS CONSULTANT MOISES VELASCO M.D. Performed By: #### C UU, UHCG, ADDONUAPLUS, URDS #### [facility] [address] [place] [address] [place] Cult,Urineon 01-13-2024 Cult,Urine Specimen Description .CLEAN CATCH URINE Special Requests Site: Urine Culture NO SIGNIFICANT GROWTH Report Status FINAL 01/13/2024 Normal [facility] Comment on above: Performed By: #### D DEBBI, CDP, CP, MG #### [facility] [address] [place] [address] Tip Inserter: Cholo Alicea MD CBC with Diffon 01-11-2024 Abs. Basophil 0.04 k/uL Normal 0.00-0.20 [facility] Comment on above: Performed By: #### D DEBBI, CDP, CP, MG #### [address] [place], [place] [address] Tip Inserter: Cholo Alicea MD Abs. Eosinophil <0.03 Normal 0.00-0.44 [facility] Comment on above: Performed By: #### D DEBBI, CDP, CP, MG #### [facility] [address] [place] [address] Tip Inserter: Cholo Alicea MD Abs.Imm.Granulocyte 0.04 k/uL Normal 0.00-0.30 [facility] Comment on above: Performed By: #### D DEBBI, CDP, CP, MG #### [facility] [address] [place], [place] [address] Tip Inserter: Cholo Alicea MD Abs.Neutrophil (Seg) 11.70 k/uL High 1.50-8.10 [facility] Comment on above: Performed By: #### D DEBBI, CDP, CP, MG #### [facility] [address] [place] [address] Dr. [place], [facility] Tip Inserter: Cholo Alicea MD Basophils/100 WBC (Bld) 0 % Normal 0-2 [facility] Comment on above: Performed By: #### D DEBBI, CDP, CP, MG #### [address] Acuna, [facility]83 Tip Inserter: Cholo Alicea MD Eosinophils/100 WBC (Bld) 0 % Low 1-4 [facility] Comment on above: Performed By: #### D DEBBI, CDP, CP, MG #### [address] Acuna, [facility]83 Tip Inserter: Cholo Alicea MD Erythrocyte distribution width (RBC) [Ratio] 12.1 % Normal 11.8-14.4 [facility] [facility] Comment on above: Performed By: #### D DEBBI, CDP, CP, MG #### [address] [place], [facility]83 Tip Inserter: Cholo Alicea MD Hematocrit (Bld) [Volume fraction] 41.8 % Normal 36.3-47.1 [facility] Comment on above: Performed By: #### D DEBBI, CDP, CP, MG #### [address] [place], [facility]83 Tip Inserter: Cholo Alicea MD Hemoglobin (Bld) [Mass/Vol] 15.2 g/dL High 11.9-15.1 [facility] Comment on above: Performed By: #### D DEBBI, CDP, CP, MG #### [address] [place] [address] Tip Inserter: Cholo Alicea MD Immature granulocytes/100 WBC (Bld) 0 % Normal 0 [facility] Comment on above: Performed By: #### D DEBBI, CDP, CP, MG #### [address] [place] [address] Tip Inserter: Cholo Alicea MD Lymphocytes (Bld) [#/Vol] 0.77 10*3/uL Low 1.10-3.70 [facility] Comment on above: Performed By: #### D DEBBI, CDP, CP, MG #### [address] [place], [place] [address] Tip Inserter: Cholo Alicea MD Lymphocytes/100 WBC (Bld) 6 % Low 24-43 [facility] Comment on above: Performed By: #### D DEBBI, CDP, CP, MG #### [address] [place], [facility]83 Tip Inserter: Cholo Alicea MD MCH (RBC) [Entitic mass] 30.5 pg Normal 25.2-33.5 [facility] Comment on above: Performed By: #### D DEBBI, CDP, CP, MG #### [address] [place], [facility]83 Tip Inserter: Cholo Alicea MD MCHC (RBC) [Mass/Vol] 36.4 g/dL High 28.4-34.8 [facility] Comment on above: Performed By: #### D DEBBI, CDP, CP, MG #### [address] [place], [facility]83 Tip Inserter: Cholo Alicea MD MCV (RBC) [Entitic vol] 83.8 fL Normal 82.6-102.9 M [facility] Comment on above: Performed By: #### D DEBBI, CDP, CP, MG #### [address] [place] [address] Tip Inserter: Cholo Alicea MD Monocytes (Bld) [#/Vol] 0.13 10*3/uL Normal 0.10-1.20 [facility] Comment on above: Performed By: #### D DEBBI, CDP, CP, MG #### [facility] [address] [place], [place] [id number] Tip Inserter: Cholo Alicea MD Monocytes/100 WBC (Bld) 1 % Low 3-12 M [facility] Comment on above: Performed By: #### D DEBBI, CDP, CP, MG #### [facility] [address] [place] [address] Tip Inserter: Cholo Alicea MD Neutrophil (Seg) 92 % High 36-65 [facility] Comment on above: Performed By: #### D DEBBI, CDP, CP, MG #### [address] [place], [place] [id number] Tip Inserter: Cholo Alicea MD NRBC Automated 0.0 per 100 WBC Normal 0.0 [facility] Comment on above: Performed By: #### D DEBBI, CDP, CP, MG #### [address] [place], [place] 3333883 Tip Inserter: Cholo Alicea MD Platelet mean volume (Bld) [Entitic vol] 10.3 fL Normal 8.1-13.5 [facility] Comment on above: Performed By: #### D DEBBI, CDP, CP, MG #### [facility] [address] [place] [address] [place], [place] 0648383 Tip Inserter: Cholo Alicea MD Platelets (Bld) [#/Vol] 377 10*3/uL Normal 138-453 [facility] Comment on above: Performed By: #### D DEBBI, CDP, CP, MG #### [facility] [address] [place] [address] Tip Inserter: Cholo Alicea MD RBC (Bld) [#/Vol] 4.99 10*6/uL Normal 3.95-5.11 [facility] Comment on above: Performed By: #### D DEBBI, CDP, CP, MG #### [facility] [address] [place] [address] Tip Inserter: Cholo Alicea MD WBC (Bld) [#/Vol] 12.7 10*3/uL High 3.5-11.3 [facility] Comment on above: Performed By: #### D DEBBI, CDP, CP, MG #### [facility] [address] [place] [address] Tip Inserter: Cholo Alicea MD CT ABDOMEN PELVIS WO [...] Raulito Hinds MD 01/11/24 Final result Normal [facility] Comp Metabolic Profon 2023 Albumin [Mass/Vol] 5.0 g/dL Normal 3.5-5.2 [facility] Comment on above: Performed By: #### D DEBBI, CDP, CP, MG #### [address] [place] [address] Tip Inserter: Cholo Alicea MD Albumin/Glob Ratio 1.4 Normal 1.0-2.5 [facility] Comment on above: Performed By: #### D DEBBI, CDP, CP, MG #### [facility] [address] [place] [address] Dr[place], [place] [id number] Tip Inserter: Cholo Alicea MD Alkaline Phos 92 U/L Normal 35-104 [facility] Comment on above: Performed By: #### D DEBBI, CDP, CP, MG #### [address] [place], [place] 5111183 Tip Inserter: Cholo Alicea MD ALT [Catalytic activity/Vol] 11 U/L Normal 5-33 [facility] Comment on above: Performed By: #### D DEBBI, CDP, CP, MG #### [address] [place], [place] 3818983 Tip Inserter: Cholo Alicea MD Anion gap [Moles/Vol] 17 mmol/L Normal 9-17 [facility] Comment on above: Performed By: #### D DEBBI, CDP, CP, MG #### [address] [place] [address] Tip Inserter: Cholo Alicea MD AST [Catalytic activity/Vol] 18 U/L Normal <32 [facility] Comment on above: Performed By: #### D DEBBI, CDP, CP, MG #### [facility] [address] [place] [address] [place] [address] Tip Inserter: Cholo Alicea MD Bilirubin [Mass/Vol] 0.6 mg/dL Normal 0.3-1.2 [facility] Comment on above: Performed By: #### D DEBBI, CDP, CP, MG #### [facility] [address] [place] [address] [place], [place] 4242683 Tip Inserter: Cholo Alicea MD BUN/CRE Ratio 10 Normal 9-20 [facility] Comment on above: Performed By: #### D DEBBI, CDP, CP, MG #### [facility] [address] [place] 3171283 Tip Inserter: Cholo Alicea MD Calcium [Mass/Vol] 10.2 mg/dL Normal 8.6-10.4 [facility] Comment on above: Performed By: #### D DEBBI, CDP, CP, MG #### [facility] [address] [place], [place] 1016183 Tip Inserter: Cholo Alicea MD Chloride [Moles/Vol] 102 mmol/L Normal 98-107 [facility] Comment on above: Performed By: #### D DEBBI, CDP, CP, MG #### [facility] [address] [place] [address] Dr[place], [place] 7742283 Tip Inserter: Cholo Alicea MD CO2 [Moles/Vol] 20 mmol/L Normal 20-31 [facility] Comment on above: Performed By: #### D DEBBI, CDP, CP, MG #### [address] [place], [place] 8145083 Tip Inserter: Chloo Alicea MD Creatinine [Mass/Vol] 0.9 mg/dL Normal 0.5-0.9 [facility] Comment on above: Performed By: #### D DEBBI, CDP, CP, MG #### [facility] [address] [place] [address] Tip Inserter: Cholo Alicea MD GFR/1.73 sq M.predicted among non-blacks MDRD (S/P/Bld) [Vol rate/Area] mL/min/{1.73_m2} Normal >60 [facility] Comment on above: Result Comment: [...] #### D DEBBI, CDP, CP, MG #### [facility] [address] [place] [address] [place] [address] Tip Inserter: Cholo Alicea MD Glucose [Mass/Vol] 103 mg/dL High 70-99 [facility] Comment on above: Performed By: #### D DEBBI, CDP, CP, MG #### [address] [place] [address] Tip Inserter: Cholo Alicea MD Potassium [Moles/Vol] 3.9 mmol/L Normal 3.7-5.3 [facility] Comment on above: Performed By: #### D DEBBI, CDP, CP, MG #### [facility] [address] [place] [address] Dr[place], [facility]83 Tip Inserter: Cholo Alicea MD Protein [Mass/Vol] 8.5 g/dL High 6.4-8.3 [facility] Comment on above: Performed By: #### D DEBBI, CDP, CP, MG #### [address] [place], [facility]83 Tip Inserter: Cholo Alicea MD Sodium [Moles/Vol] 139 mmol/L Normal 135-144 [facility] Comment on above: Performed By: #### D DEBBI, CDP, CP, MG #### [address] [place] [address] Tip Inserter: Cholo Alicea MD Urea nitrogen [Mass/Vol] 9 mg/dL Normal 6-20 [facility] Comment on above: Performed By: #### D DEBBI, CDP, CP, MG #### [facility] [place] 3116083 Tip Inserter: Cholo Alicea MD HCG, ,Urineon 01-10 Beta HCG ( test) Ql (U) Negative Normal NEG [facility] Comment on above: Result Comment: Spec imens with hCG levels near the threshold of the test (25 mIU/mL) may give a negative or indeterminate result. In such cases, another test should be performed with a new specimen in 48-72 hours. If early is suspected clinically in this setting, correlation with quantitative serum b-hCG level is suggested. [facility] has confirmed the use of plasma for this test. This has not been cleared or approved by the U.[place]. Food and Drug Administration. The FDA has determined that such clearance is not necessary. Performed By: #### D DEBBI, CDP, CP, MG #### [address] [place] 9128583 Tip Inserter: Cholo Alicea MD Magnesiumon 7 Magnesium [Mass/Vol] 1.9 mg/dL Normal 1.6-2.6 [facility] Comment on above: Performed By: #### D DEBBI, CDP, CP, MG #### [address] [place] [address] Tip Inserter: Cholo Alicea MD TSH w/reflex to FT4on 2023 Thyroid Stim. Horm. 1.84 uIU/mL Normal 0.30-5.00 [facility] Comment on above: Performed By: #### T SHX #### [address] [place] [address] Tip Inserter: Cholo Alicea MD Urinalysis w/ Microon 2023 Bacteria TRACE Abnormal NONE [facility] Comment on above: Performed By: #### D DEBBI, CDP, CP, MG #### [address] [place] [address] Tip Inserter: Cholo Alicea MD Bilirubin, SemiQt,Ur Negative Normal NEG [facility] Comment on above: Performed By: #### D DEBBI, CDP, CP, MG #### [facility] [address] [place] [address] Dr[place], [place] 0043883 Tip Inserter: Cholo Alicea MD Blood, Urine Negative Normal NEG [facility] Comment on above: Performed By: #### D DEBBI, CDP, CP, MG #### [facility] [address] [place] [address] Dr[place], [place] 7012083 Tip Inserter: Cholo Alicea MD Clarity (U) Clear Normal CLEAR [facility] Comment on above: Performed By: #### D DEBBI, CDP, CP, MG #### [address] [place], [place] [phone] Tip Inserter: Cholo Alicea MD Color (U) Yellow Normal YEL [facility] Comment on above: Performed By: #### D DEBBI, CDP, CP, MG #### [address] [place], [place] 8136983 Tip Inserter: Cholo Alicea MD Epithelial cells LM Ql (Urine sed) 10 TO 20 Normal 0-25 [facility] Comment on above: Performed By: #### D DEBBI, CDP, CP, MG #### [address] [place], [place] 7604683 Tip Inserter: Cholo Alicea MD Glucose Ql (U) Negative Normal NEG [facility] Comment on above: Performed By: #### D DEBBI, CDP, CP, MG #### [facility] [address] [place] [address] Dr[place], [place] 9673283 Tip Inserter: Cholo Alicea MD Ketones Ql (U) Negative Normal NEG [facility] Comment on above: Performed By: #### D DEBBI, CDP, CP, MG #### [facility] [address] [place] [address] Dr[place], [place] 0390383 Tip Inserter: Cholo Alicea MD Leukocyte esterase Test strip Ql (U) TRACE Abnormal NEG [facility] Comment on above: Performed By: #### D DEBBI, CDP, CP, MG #### [address] [place] [address] Tip Inserter: Cholo Alicea MD Nitrite,Ur Negative Normal NEG [facility] Comment on above: Performed By: #### D DEBBI, CDP, CP, MG #### [facility] [address] [place] [address] Dr[place], [place] 9993283 Tip Inserter: Cholo Alicea MD PH,Ur 8.0 Normal 5.0-9.0 [facility] Comment on above: Performed By: #### D DEBBI, CDP, CP, MG #### [address] [place], [place] 0285483 Tip Inserter: Cholo Alicea MD Protein Ql (U) Negative Normal NEG [facility] Comment on above: Performed By: #### D DEBBI, CDP, CP, MG #### [address] [place] [address] Tip Inserter: Cholo Alicea MD Spec. [place]e,Ur 1.015 Normal 1.010-1.020 [facility] Comment on above: Performed By: #### D DEBBI, CDP, CP, MG #### [address] [place], [place] 0096183 Tip Inserter: Cholo Alicea MD Urine RBC's None Normal 0-2 [facility] Comment on above: Performed By: #### D DEBBI, CDP, CP, MG #### [address] [place] [address] Tip Inserter: Cholo Alicea MD Urine WBC's 5 TO 10 Normal 0-5 [facility] Comment on above: Performed By: #### D DEBBI, CDP, CP, MG #### [facility] [address] [place] [address] Tip Inserter: Cholo Alicea MD Urobilinogen,Ur Normal Normal 0.0-1.0 [facility] Comment on above: Performed By: #### D DEBBI, CDP, CP, MG #### [facility] [address] [place] [address] Tip Inserter: Cholo Alicea MD URINE CULTUREon 01-10-2024 Bacteria [...] F TRIMETH/SULFAMETHOXA ZOLE R >=16/304 F Resistant [facility] Comment on above: Performed By: #### 6 30-4 #### [facility] ([id number]) [address], [address] [place] [address] CBC with Diffon 01-07-2024 Abs. Basophil 0.06 k/uL Normal 0.00-0.20 [facility] Comment on above: Performed By: #### C P, DIME, CDP, TROPI #### [facility] [address] [place] [address] Tip Inserter: Cholo Alicea MD Abs.Imm.Granulocyte <0.03 Normal 0.00-0.30 [facility] Comment on above: Performed By: #### C P, DIME, CDP, TROPI #### [facility] [address] [place] [address] Tip Inserter: Cholo Alicea MD Abs.Neutrophil (Seg) 3.71 k/uL Normal 1.50-8.10 [facility] Comment on above: Performed By: #### C P, DIME, CDP, TROPI #### [address] [place], [place] 3498683 Tip Inserter: Cholo Alicea MD Basophils/100 WBC (Bld) 1 % Normal 0-2 [facility] Comment on above: Performed By: #### C P, DIME, CDP, TROPI #### [address] [place], [facility]83 Tip Inserter: Cholo Alicea MD Eosinophils (Bld) [#/Vol] 0.06 10*3/uL Normal 0.00-0.44 [facility] Comment on above: Performed By: #### C P, DIME, CDP, TROPI #### [address] [place], [place] [address] Tip Inserter: Cholo Alicea MD Eosinophils/100 WBC (Bld) 1 % Normal 1-4 [facility] Comment on above: Performed By: #### C P, DIME, CDP, TROPI #### [address] [place], [facility]83 Tip Inserter: Cholo Alicea MD Erythrocyte distribution width (RBC) [Ratio] 12.3 % Normal 11.8-14.4 [facility] Comment on above: Performed By: #### C P, DIME, CDP, TROPI #### [address] [place], [facility]83 Tip Inserter: Cholo Alicea MD Hematocrit (Bld) [Volume fraction] 40.3 % Normal 36.3-47.1 [facility] Comment on above: Performed By: #### C P, DIME, CDP, TROPI #### [address] [place], [facility]83 Tip Inserter: Cholo Alicea MD Hemoglobin (Bld) [Mass/Vol] 14.0 g/dL Normal 11.9-15.1 [facility] Comment on above: Performed By: #### C P, DIME, CDP, TROPI #### [facility] [address] [place] [address] Tip Inserter: Cholo Alicea MD Immature granulocytes/100 WBC (Bld) 0 % Normal 0 [facility] Comment on above: Performed By: #### C P, DIME, CDP, TROPI #### [facility] [address] [place], [facility]83 Tip Inserter: Cholo Alicea MD Lymphocytes (Bld) [#/Vol] 3.59 10*3/uL Normal 1.10-3.70 [facility] Comment on above: Performed By: #### C P, DIME, CDP, TROPI #### [address] [place], [facility]83 Tip Inserter: Cholo Alicea MD Lymphocytes/100 WBC (Bld) 44 % High 24-43 [facility] Comment on above: Performed By: #### C P, DIME, CDP, TROPI #### [address] [place], [facility]83 Tip Inserter: Cholo Alicea MD MCH (RBC) [Entitic mass] 30.4 pg Normal 25.2-33.5 [facility] Comment on above: Performed By: #### C P, DIME, CDP, TROPI #### [facility] [address] [place] [address] Tip Inserter: Cholo Alicea MD MCHC (RBC) [Mass/Vol] 34.7 g/dL Normal 28.4-34.8 [facility] Comment on above: Performed By: #### C P, DIME, CDP, TROPI #### [address] [place], [facility]83 Tip Inserter: Cholo Alicea MD MCV (RBC) [Entitic vol] 87.4 fL Normal 82.6-102.9 M [facility] Comment on above: Performed By: #### C P, DIME, CDP, TROPI #### [address] [place], [facility]83 Tip Inserter: Cholo Alicea MD Monocytes (Bld) [#/Vol] 0.67 10*3/uL Normal 0.10-1.20 [facility] Comment on above: Performed By: #### C P, DIME, CDP, TROPI #### [address] [place], [facility]83 Tip Inserter: Cholo Alicea MD Monocytes/100 WBC (Bld) 8 % Normal 3-12 [facility] Comment on above: Performed By: #### C P, DIME, CDP, TROPI #### [address] [place], [facility]83 Tip Inserter: Cholo Alicea MD Neutrophil (Seg) 46 % Normal 36-65 [facility] Comment on above: Performed By: #### C P, DIME, CDP, TROPI #### [address] [place], [facility]83 Tip Inserter: Cholo Alicea MD NRBC Automated 0.0 per 100 WBC Normal 0.0 [facility] Comment on above: Performed By: #### C P, DIME, CDP, TROPI #### [address] [place], [facility]83 Tip Inserter: Cholo Alicea MD Platelet mean volume (Bld) [Entitic vol] 10.3 fL Normal 8.1-13.5 [facility] Comment on above: Performed By: #### C P, DIME, CDP, TROPI #### [address] [place], [place] 8174983 Tip Inserter: Cholo Alicea MD Platelets (Bld) [#/Vol] 292 10*3/uL Normal 138-453 [facility] Comment on above: Performed By: #### C P, DIME, CDP, TROPI #### [facility] [address] [place], [place] 5888783 Tip Inserter: Cholo Alicea MD RBC (Bld) [#/Vol] 4.61 10*6/uL Normal 3.95-5.11 [facility] Comment on above: Performed By: #### C P, DIME, CDP, TROPI #### [facility] [address] [place], [place] 6941183 Tip Inserter: Cholo Alicea MD WBC (Bld) [#/Vol] 8.1 10*3/uL Normal 3.5-11.3 [facility] Comment on above: Performed By: #### C P, DIME, CDP, TROPI #### [facility] [address] [place], [place] 0465383 Tip Inserter: Cholo Alicea MD Comp Metabolic Profon 2023 Albumin [Mass/Vol] 4.6 g/dL Normal 3.5-5.2 [facility] Comment on above: Performed By: #### C P, DIME, CDP, TROPI #### [facility] [address] [place], [place] 6915083 Tip Inserter: Cholo Alicea MD Albumin/Glob Ratio 1.6 Normal 1.0-2.5 [facility] Comment on above: Performed By: #### C P, DIME, CDP, TROPI #### [facility] [address] [place], [place] 9066183 Tip Inserter: Cholo Alicea MD Alkaline Phos 73 U/L Normal 35-104 [facility] Comment on above: Performed By: #### C P, DIME, CDP, TROPI #### [facility] [address] [place], [place] 2436783 Tip Inserter: Cholo Alicea MD ALT [Catalytic activity/Vol] 9 U/L Normal 5-33 [facility] Comment on above: Performed By: #### C P, DIME, CDP, TROPI #### [facility] [address] [place], [place] 8178283 Tip Inserter: Cholo Alicea MD Anion gap [Moles/Vol] 10 mmol/L Normal 9-17 [facility] Comment on above: Performed By: #### C P, DIME, CDP, TROPI #### [address] [place], [place] 6692883 Tip Inserter: Cholo Alicea MD AST [Catalytic activity/Vol] 14 U/L Normal <32 [facility] Comment on above: Performed By: #### C P, DIME, CDP, TROPI #### [address] [place], [place] 2568083 Tip Inserter: Cholo Alicea MD Bilirubin [Mass/Vol] 0.4 mg/dL Normal 0.3-1.2 [facility] Comment on above: Performed By: #### C P, DIME, CDP, TROPI #### [address] [place], [place] 9579183 Tip Inserter: Cholo Alicea MD BUN/CRE Ratio 24 High 9-20 [facility] Comment on above: Performed By: #### C P, DIME, CDP, TROPI #### [address] [place] [address] Tip Inserter: Cholo Alicea MD Calcium [Mass/Vol] 8.6 mg/dL Normal 8.6-10.4 [facility] Comment on above: Performed By: #### C P, DIME, CDP, TROPI #### [facility] [address] [place] [address] Tip Inserter: Cholo Alicea MD Chloride [Moles/Vol] 100 mmol/L Normal 98-107 [facility] Comment on above: Performed By: #### C P, DIME, CDP, TROPI #### [facility] [address] [place] [address] Tip Inserter: Cholo Alicea MD CO2 [Moles/Vol] 25 mmol/L Normal 20-31 [facility] Comment on above: Performed By: #### C P, DIME, CDP, TROPI #### [facility] [address] [place] [address] Tip Inserter: Cholo Alicea MD Creatinine [Mass/Vol] 0.8 mg/dL Normal 0.5-0.9 [facility] Comment on above: Performed By: #### C P, DIME, CDP, TROPI #### [facility] [address] [place] [address] Tip Inserter: Cholo Alicea MD GFR/1.73 sq M.predicted among non-blacks MDRD (S/P/Bld) [Vol rate/Area] mL/min/{1.73_m2} Normal >60 [facility] Comment on above: Result Comment: [...] #### C P, DIME, CDP, TROPI #### [facility] [address] [place] [address] Tip Inserter: Cholo Alicea MD Glucose [Mass/Vol] 94 mg/dL Normal 70-99 [facility] Comment on above: Performed By: #### C P, DIME, CDP, TROPI #### [facility] [address] [place] [address] Tip Inserter: Cholo Alicea MD Potassium [Moles/Vol] 3.8 mmol/L Normal 3.7-5.3 [facility] Comment on above: Performed By: #### C P, DIME, CDP, TROPI #### [facility] [address] [place] [address] Tip Inserter: Cholo Alicea MD Protein [Mass/Vol] 7.4 g/dL Normal 6.4-8.3 [facility] Comment on above: Performed By: #### C P, DIME, CDP, TROPI #### [facility] [address] [place] [address] Tip Inserter: Cholo Alicea MD Sodium [Moles/Vol] 135 mmol/L Normal 135-144 [facility] Comment on above: Performed By: #### C P, DIME, CDP, TROPI #### [facility] [address] [place] [address] Tip Inserter: Cholo Alicea MD Urea nitrogen [Mass/Vol] 19 mg/dL Normal 6-20 [facility] Comment on above: Performed By: #### C P, DIME, CDP, TROPI #### [facility] [address] [place] [address] Tip Inserter: Cholo Alicea MD D-Dimer Teston 01-07-2024 D-Dimer Test 0.39 ug/mL FEU Normal 0.00-0.59 [facility] Comment on above: Result Comment: When [...] #### C P, DIME, CDP, TROPI #### [address] [place] [address] Tip Inserter: Cholo Alicea MD Drug Scr, Abuse, Uron 2023 Amphetamine(s),Ur Positive Abnormal NEG [facility] Comment on above: Result Comment: (Positive cutoff 1000 ng/mL) Performed By: #### D DEBBI, CDP, CP, MG #### [address] [place] [address] Tip Inserter: Cholo Alicea MD Barbiturate(s),Ur Negative Normal NEG [facility] Comment on above: Result Comment: (Positive cutoff 200 ng/mL) Performed By: #### D DEBBI, CDP, CP, MG #### [address] [place] [address] Tip Inserter: Cholo Alicea MD Benzodiazepine(s) Positive Abnormal NEG [facility] Comment on above: Result Comment: (Positive cutoff 200 ng/mL) Performed By: #### D DEBBI, CDP, CP, MG #### [address] [place] [address] Tip Inserter: Cholo Alicea MD Buprenorphrine, Ur Negative Normal NEG [facility] Comment on above: Result Comment: (Positive cutoff 5 ng/ml) Performed By: #### D DEBBI, CDP, CP, MG #### [facility] [address] [place], [place] [id number] Tip Inserter: Cholo Alicea MD Cannabinoid(s),Ur Negative Normal NEG [facility] Comment on above: Result Comment: (Positive cutoff 50 ng/mL) Performed By: #### D DEBBI, CDP, CP, MG #### [facility] [address] [place] [address] [place], [place] 0532483 Tip Inserter: Cholo Alicea MD Cocaine Metabolite Negative [facility] Comment on above: Result Comment: (Positive cutoff 300 ng/mL) Performed By: #### D DEBBI, CDP, CP, MG #### [address] [place], [place] 2334683 Tip Inserter: Cholo Alicea MD Fentanyl, Urine Negative [facility] Comment on above: Result Comment: (Positive cutoff 5 ng/ml) Performed By: #### D DEBBI, CDP, CP, MG #### [address] [place], [place] 5351583 Tip Inserter: Cholo Alicea MD Interpretive Info Assay provides medical screening only. The absence of expected drug(s) and/or Normal [facility] Comment on above: Result Comment: meta bolite(s) may indicate diluted or adulterated urine, limitations of testing or timing of collection. Testing for legal purposes should be confirmed by another method. To request confirmation of test result, please call the lab within 7 days of sample submission. Performed By: #### D DEBBI, CDP, CP, MG #### [facility] [address] [place] [address] [place] [place], [place] [id number] Tip Inserter: Cholo Alicea MD Methadone Ql (U) Negative Normal NEG [facility] Comment on above: Result Comment: (Positive cutoff 300 ng/mL) Performed By: #### D DEBBI, CDP, CP, MG #### [facility] [address] [place] [address] [place] [address] Tip Inserter: Cholo Alicea MD Opiate(s), Ur Negative Normal NEG [facility] Comment on above: Result Comment: (Positive cutoff 300 ng/mL) Performed By: #### D DEBBI, CDP, CP, MG #### [facility] [address] [place] [address] [place] [place], [place] [id number] Tip Inserter: Cholo Alicea MD Oxycodone, Urine Negative Normal NEG [facility] Comment on above: Result Comment: (Positive cutoff 100 ng/mL) Performed By: #### D DEBBI, CDP, CP, MG #### [address] [place], [place] [id number] Tip Inserter: Cholo Alicea MD Phencyclidine, Ur Negative Normal NEG [facility] Comment on above: Result Comment: (Positive cutoff 25 ng/mL) Performed By: #### D DEBBI, CDP, CP, MG #### [address] [place] [address] Tip Inserter: Cholo Alicea MD Ethanol Alcoholon 6 Ethanol [Mass/Vol] mg/dL Normal <10 [facility] Comment on above: Performed By: #### D DEBBI, CDP, CP, MG #### [address] [place] [address] Tip Inserter: Cholo Alicea MD Ethanol percent <0.010 Normal <0.010 [facility] Comment on above: Performed By: #### D DEBBI, CDP, CP, MG #### [address] [place] [address] Tip Inserter: Cholo Alicea MD HCG, ,Urineon 01-06 Beta HCG ( test) Ql (U) Negative Normal NEG [facility] Comment on above: Result Comment: Spec imens with hCG levels near the threshold of the test (25 mIU/mL) may give a negative or indeterminate result. In such cases, another test should be performed with a new specimen in 48-72 hours. If early is suspected clinically in this setting, correlation with quantitative serum b-hCG level is suggested. [facility] has confirmed the use of plasma for this test. This has not been cleared or approved by the U.S. Food and Drug Administration. The FDA has determined that such clearance is not necessary. Performed By: #### D DEBBI, CDP, CP, MG #### [facility] [address] [place] [address] [place] [address] Tip Inserter: Cholo Alicea MD Troponinon 01-07-2024 Troponin, High Sens <6 Normal 0-14 [facility] Comment on above: Result Comment: High Sensitivity Troponin values cannot be compared with other Troponin methodologies. Performed By: #### C P, DIME, CDP, TROPI #### [address] [place] [address] Tip Inserter: Cholo Alicea MD UA w/Reflex Cultureon 2023 Bilirubin, SemiQt,Ur Negative Normal NEG [facility] Comment on above: Performed By: #### D DEBBI, CDP, CP, MG #### [facility] [address] [place] [address] [place], [place] [phone] Tip Inserter: Cholo Alicea MD Blood, Urine Negative Normal NEG [facility] Comment on above: Performed By: #### D DEBBI, CDP, CP, MG #### [facility] [address] [place] [address] [place] [address] Tip Inserter: Cholo Alicea MD Clarity (U) Clear Normal CLEAR [facility] Comment on above: Performed By: #### D DEBBI, CDP, CP, MG #### [facility] [address] [place] [address] [place] [address] Tip Inserter: Cholo Alicea MD Color (U) Yellow Normal YEL [facility] Comment on above: Performed By: #### D DEBBI, CDP, CP, MG #### [facility] [address] [place] [address] [place] [address] Tip Inserter: Cholo Alicea MD Glucose Ql (U) Negative Normal NEG [facility] Comment on above: Performed By: #### D DEBBI, CDP, CP, MG #### [facility] [address] [place] [address] [place], [place] [phone] Tip Inserter: Cholo Alicea MD Ketones Ql (U) Negative Normal NEG [facility] Comment on above: Performed By: #### D DEBBI, CDP, CP, MG #### [address] [place] [address] Tip Inserter: Cholo Alicea MD Leukocyte esterase Test strip Ql (U) Negative Normal NEG [facility] Comment on above: Performed By: #### D DEBBI, CDP, CP, MG #### [address] [place] [address] Tip Inserter: Cholo Alicea MD Nitrite,Ur Negative Normal [facility] Comment on above: Performed By: #### D DEBBI, CDP, CP, MG #### [address] [place] [address] Tip Inserter: Cholo Alicea MD PH,Ur 6.0 Normal 5.0-9.0 [facility] Comment on above: Performed By: #### D DEBBI, CDP, CP, MG #### [facility] [address] [place] [address] [place], [place] 8143883 Tip Inserter: Cholo Alicea MD Protein Ql (U) Negative Normal NEG [facility] Comment on above: Performed By: #### D DEBBI, CDP, CP, MG #### [facility] [address] [place] [address] [place] [place], [place] 6103683 Tip Inserter: Cholo Alicea MD Spec. Nocatee,Ur >1.030 High 1.010-1.020 [facility] Comment on above: Performed By: #### D DEBBI, CDP, CP, MG #### [facility] [address] [place] [address] [place] [address] Tip Inserter: Cholo Alicea MD Urobilinogen,Ur Normal Normal 0.0-1.0 [facility] Comment on above: Performed By: #### D DEBBI, CDP, CP, MG #### [facility] [address] [place] [address] Dr[place], [place] [phone] Tip Inserter: Cholo Alicea MD Urinalysis,Microon 4 Bacteria 3+ Abnormal NONE [facility] Comment on above: Performed By: #### D DEBBI, CDP, CP, MG #### [facility] [address] [place] [address] [place], [place] [phone] Tip Inserter: Cholo Alicea MD Epithelial cells LM Ql (Urine sed) 5 TO 10 Normal 0-25 [facility] Comment on above: Performed By: #### D DEBBI, CDP, CP, MG #### [facility] [address] [place] [address] Dr[place], [place] 7563583 Tip Inserter: Cholo Alicea MD Urine RBC's 0 TO 2 Normal 0-2 [facility] Comment on above: Performed By: #### D DEBBI, CDP, CP, MG #### [facility] [address] [place] [address] [place] [address] Tip Inserter: Cholo Alicea MD Urine WBC's 5 TO 10 Normal 0-5 [facility] Comment on above: Performed By: #### D DEBBI, CDP, CP, MG #### [facility] [address] [place] [address] [place] [address] Tip Inserter: Cholo Alicea MD Venous Blood Gaseson 024 Servando Test NO Normal [facility] Comment on above: Performed By: #### D DEBBI, CDP, CP, MG #### [facility] [address] [place] [address] Tip Inserter: Cholo Alicea MD Body Temp. 37.0 [facility] Comment on above: Performed By: #### D DEBBI, CDP, CP, MG #### [facility] [address] [place], [place] 3241083 Tip Inserter: Cholo Alicea MD FIO2 21 [facility] Comment on above: Performed By: #### D DEBBI, CDP, CP, MG #### [facility] [address] [place] [address] [place], [place] [phone] Tip Inserter: Cholo Alicea MD HCO3 (Bld) [Moles/Vol] 24.9 mmol/L Normal 24.0-30.0 [facility] Comment on above: Performed By: #### D DEBBI, CDP, CP, MG #### [facility] [address] [place] [address] [place], [place] 1269183 Tip Inserter: Cholo Alicea MD Negative Base Excess 0.2 mmol/L Normal 0.0-2.0 [facility] Comment on above: Performed By: #### D DEBBI, CDP, CP, MG #### [address] [place] [address] Tip Inserter: Cholo Alicea MD O2 Device/Flow/% ROOM AIR [facility] Comment on above: Performed By: #### D DEBBI, CDP, CP, MG #### [facility] [address] [place] [address] Tip Inserter: Cholo Alicea MD Oxygen saturation in Blood 77.3 % Normal 60.0-85.0 [facility] Comment on above: Performed By: #### D DEBBI, CDP, CP, MG #### [facility] [address] [place] [address] [place], [place] 7581283 Tip Inserter: Cholo Alicea MD pCO2 42.3 mm Hg Normal 39-55 [facility] Comment on above: Performed By: #### D DEBBI, CDP, CP, MG #### [facility] [address] [place] [address] Dr. [place], [place] 4407883 Tip Inserter: Cholo Alicea MD Pco2 Adj'd for Temp. 42.3 mmHg Normal 39.0-55.0 [facility] Comment on above: Performed By: #### D DEBBI, CDP, CP, MG #### [address] [place] [address] Tip Inserter: Cholo Alicea MD pH (Bld) 7.388 [pH] Normal 7.32-7.42 [facility] Comment on above: Performed By: #### D DEBBI, CDP, CP, MG #### [address] [place], [place] 7700783 Tip Inserter: Cholo Alicea MD pH Adjst'd for Temp. 7.388 Normal 7.320-7.420 [facility] Comment on above: Performed By: #### D DEBBI, CDP, CP, MG #### [address] [place], [place] [phone] Tip Inserter: Cholo Alicea MD pO2 42.2 mm Hg Normal 30.0-50.0 [facility] Comment on above: Performed By: #### D DEBBI, CDP, CP, MG #### [facility] [address] [place] [address] Dr. [place], [place] 2176183 Tip Inserter: Cholo Alicea MD pO2 Adj'd for Temp. 42.2 mmHg Normal 30.0-50.0 [facility] Comment on above: Performed By: #### D DEBBI, CDP, CP, MG #### [facility] [address] [place] [address] Dr. [place], [place] 0554283 Tip Inserter: Cholo Alicea MD XR CHEST PORTABLEon 01-07-20 XR CHEST PORTABLE EXAMINATION: ONE XRAY VIEW [...] Jonnie So MD 01/07/24 Final result Normal [facility] Basic Metabolic Profon 11-19 Anion gap [Moles/Vol] 9 mmol/L Normal - [facility] Comment on above: Performed By: #### D DEBBI, CDP, CP, MG #### [facility] [address] [place] [address] [place] [address] Tip Inserter: Cholo Alicea MD BUN/CRE Ratio 11 Normal - [facility] Comment on above: Performed By: #### D DEBBI, CDP, CP, MG #### [address] [place] [address] Tip Inserter: Cholo Alicea MD Calcium [Mass/Vol] 9.1 mg/dL Normal 8.6-10.4 [facility] Comment on above: Performed By: #### D DEBBI, CDP, CP, MG #### [facility] [address] [place] [address] [place] [address] Tip Inserter: Cholo Alicea MD Chloride [Moles/Vol] 103 mmol/L Normal 98-107 [facility] Comment on above: Performed By: #### D DEBBI, CDP, CP, MG #### [facility] [address] [place] [address] [place] [address] Tip Inserter: Cholo Alicea MD CO2 [Moles/Vol] 25 mmol/L Normal 20-31 [facility] Comment on above: Performed By: #### D DEBBI, CDP, CP, MG #### [address] [place] [address] Tip Inserter: Cholo Alicea MD Creatinine [Mass/Vol] 0.8 mg/dL Normal 0.5-0.9 [facility] Comment on above: Performed By: #### D DEBBI, CDP, CP, MG #### [facility] [address] [place] [address] [place] [address] Tip Inserter: Cholo Alicea MD GFR/1.73 sq M.predicted among non-blacks MDRD (S/P/Bld) [Vol rate/Area] mL/min/{1.73_m2} Normal >60 [facility] Comment on above: Result Comment: [...] #### D DEBBI, CDP, CP, MG #### [address] [place] [address] Tip Inserter: Cholo Alicea MD Glucose [Mass/Vol] 87 mg/dL Normal 70-99 [facility] Comment on above: Performed By: #### D DEBBI, CDP, CP, MG #### [address] [place] [address] Tip Inserter: Cholo Alicea MD Potassium [Moles/Vol] 3.8 mmol/L Normal 3.7-5.3 [facility] Comment on above: Performed By: #### D DEBBI, CDP, CP, MG #### [address] [place] [address] Tip Inserter: Cholo Alicea MD Sodium [Moles/Vol] 137 mmol/L Normal 135-144 [facility] Comment on above: Performed By: #### D DEBBI, CDP, CP, MG #### [facility] [address] [place] [address] Dr. [place], [facility]83 Tip Inserter: Cholo Alicea MD Urea nitrogen [Mass/Vol] 9 mg/dL Normal 6-20 [facility] Comment on above: Performed By: #### D DEBBI, CDP, CP, MG #### [facility] [address] [place] [address] Dr. [place], [facility]83 Tip Inserter: Cholo Alicea MD CBC with Diffon 11-20-2023 Abs. Basophil 0.05 k/uL Normal 0.00-0.20 [facility] Comment on above: Performed By: #### D DEBBI, CDP, CP, MG #### [address] [place], [facility]83 Tip Inserter: Cholo Alicea MD Abs.Imm.Granulocyte <0.03 Normal 0.00-0.30 [facility] Comment on above: Performed By: #### D DEBBI, CDP, CP, MG #### [address] [place], [facility]83 Tip Inserter: Cholo Alicea MD Abs.Neutrophil (Seg) 4.60 k/uL Normal 1.50-8.10 [facility] Comment on above: Performed By: #### D DEBBI, CDP, CP, MG #### [facility] [address] [place] [address] Dr. [place], [facility]83 Tip Inserter: Cholo Alicea MD Basophils/100 WBC (Bld) 1 % Normal 0-2 [facility] Comment on above: Performed By: #### D DEBBI, CDP, CP, MG #### [address] [place] [address] Tip Inserter: Cholo Alicea MD Eosinophils (Bld) [#/Vol] 0.07 10*3/uL Normal 0.00-0.44 [facility] Comment on above: Performed By: #### D DEBBI, CDP, CP, MG #### [address] [place], [facility]83 Tip Inserter: Cholo Alicea MD Eosinophils/100 WBC (Bld) 1 % Normal 1-4 [facility] Comment on above: Performed By: #### D DEBBI, CDP, CP, MG #### [address] [place], [facility]83 Tip Inserter: Cholo Alicea MD Erythrocyte distribution width (RBC) [Ratio] 12.3 % Normal 11.8-14.4 [facility] Comment on above: Performed By: #### D DEBBI, CDP, CP, MG #### [address] [place] 1906183 Tip Inserter: Cholo Alicea MD Hematocrit (Bld) [Volume fraction] 39.8 % Normal 36.3-47.1 [facility] Comment on above: Performed By: #### D DEBBI, CDP, CP, MG #### [address] [place], [facility]83 Tip Inserter: Cholo Alicea MD Hemoglobin (Bld) [Mass/Vol] 13.5 g/dL Normal 11.9-15.1 [facility] Comment on above: Performed By: #### D DEBBI, CDP, CP, MG #### [address] [place], [facility]83 Tip Inserter: Cholo Alicea MD Immature granulocytes/100 WBC (Bld) 0 % Normal 0 [facility] Comment on above: Performed By: #### D DEBBI, CDP, CP, MG #### [address] [place], [facility]83 Tip Inserter: Cholo Alicea MD Lymphocytes (Bld) [#/Vol] 2.81 10*3/uL Normal 1.10-3.70 [facility] Comment on above: Performed By: #### D DEBBI, CDP, CP, MG #### [address] [place] [address] Tip Inserter: Cholo Alicea MD Lymphocytes/100 WBC (Bld) 34 % Normal 24-43 [facility] Comment on above: Performed By: #### D DEBBI, CDP, CP, MG #### [address] [place], [facility]83 Tip Inserter: Cholo Alicea MD MCH (RBC) [Entitic mass] 29.9 pg Normal 25.2-33.5 [facility] Comment on above: Performed By: #### D DEBBI, CDP, CP, MG #### [address] [place], [facility]83 Tip Inserter: Cholo Alicea MD MCHC (RBC) [Mass/Vol] 33.9 g/dL Normal 28.4-34.8 [facility] Comment on above: Performed By: #### D DEBBI, CDP, CP, MG #### [address] [place], [facility]83 Tip Inserter: Cholo Alicea MD MCV (RBC) [Entitic vol] 88.1 fL Normal 82.6-102.9 M [facility] Comment on above: Performed By: #### D DEBBI, CDP, CP, MG #### [address] [place], [facility]83 Tip Inserter: Cholo Alicea MD Monocytes (Bld) [#/Vol] 0.62 10*3/uL Normal 0.10-1.20 [facility] Comment on above: Performed By: #### D DEBBI, CDP, CP, MG #### [address] [place], [facility]83 Tip Inserter: Cholo Alicea MD Monocytes/100 WBC (Bld) 8 % Normal 3-12 M [facility] Comment on above: Performed By: #### D DEBBI, CDP, CP, MG #### [address] [place], [place] 9809983 Tip Inserter: Cholo Alicea MD Neutrophil (Seg) 56 % Normal 36-65 [facility] Comment on above: Performed By: #### D DEBBI, CDP, CP, MG #### [address] [place], [place] 1176783 Tip Inserter: Cholo Alicea MD NRBC Automated 0.0 per 100 WBC Normal 0.0 [facility] Comment on above: Performed By: #### D DEBBI, CDP, CP, MG #### [address] [place], [place] 4844083 Tip Inserter: Cholo Alicea MD Platelet mean volume (Bld) [Entitic vol] 10.2 fL Normal 8.1-13.5 [facility] Comment on above: Performed By: #### D DEBBI, CDP, CP, MG #### [address] [place], [place] 8243883 Tip Inserter: Cholo Alicea MD Platelets (Bld) [#/Vol] 302 10*3/uL Normal 138-453 [facility] Comment on above: Performed By: #### D DEBBI, CDP, CP, MG #### [address] [place], [place] 0142083 Tip Inserter: Cholo Alicea MD RBC (Bld) [#/Vol] 4.52 10*6/uL Normal 3.95-5.11 [facility] Comment on above: Performed By: #### D DEBBI, CDP, CP, MG #### [address] [place] [address] Tip Inserter: Cholo Alicea MD WBC (Bld) [#/Vol] 8.2 10*3/uL Normal 3.5-11.3 [facility] Comment on above: Performed By: #### D DEBBI, TATA, CP, MG #### [facility] [address] [place], [place] 2316483 Tip Inserter: Cholo Alicea MD CT CHEST PULMONARY EMBOLISM [...] Costa Block MD 11/20/23 Final result Normal [facility] Troponinon 11-20-2023 Troponin, High Sens <6 Normal 0-14 [facility] Comment on above: Result Comment: High Sensitivity Troponin values cannot be compared with other Troponin methodologies. Performed By: #### D DEBBI, TATA, CP, MG #### [facility] [address] [place], [place] 0661883 Tip Inserter: Cholo Alicea MD CBC AND AUTO DIFFon 06-22-20 24 ABSOLUTE BASOPHIL 0.1 X10E9/L Normal 0.0-0.2 [facility] Comment on above: Performed By: #### C OSWALDO, CMP, 04025-5, 27836-0 #### [facility] ([id number]) [address] [place] [address] 13112 ABSOLUTE NEUTROPHIL 4.6 X10E9/L Normal 1.5-6.6 [facility] Comment on above: Performed By: #### C BCA, CMP, 95658-3, 55761-9 #### [facility] ([id number]) [address] [place] [address] 57808 Basophils/100 WBC (Bld) 0.8 % Normal [facility] Comment on above: Performed By: #### C OSWALDO, CMP, 72890-4, 78286-6 #### [facility] ([id number]) [address] [place] [address] 89974 Eosinophils (Bld) [#/Vol] 0.1 10*3/uL Normal 0.0-0.4 [facility] Comment on above: Performed By: #### C BCA, CMP, 71388-8, 93482-8 #### [facility] ([id number]) [address] [place] [address] 77788 Eosinophils/100 WBC (Bld) 1.3 % Normal [facility] Comment on above: Performed By: #### C BCA, CMP, 89901-7, 25152-7 #### [facility] ([id number]) [address] [place] [address] 83683 Erythrocyte distribution width (RBC) [Ratio] 13.2 % Normal 11.5-15.0 [facility] Comment on above: Performed By: #### C BCA, CMP, 41914-9, 97782-8 #### [facility] ([id number]) [address] [place] [address] [place] [address] Hematocrit (Bld) [Volume fraction] 38.7 % Normal 35-47 [facility] Comment on above: Performed By: #### C OSWALDO, CMP, 24545-2, 95279-4 #### [facility] ([id number]) [address] [place] [address] 59200 Hemoglobin (Bld) [Mass/Vol] 13.3 g/dL Normal 11.7-15.5 [facility] Comment on above: Performed By: #### C OSWALDO, CMP, 68847-5, 12551-7 #### [facility] ([id number]) [address] [place] [address] 95316 Lymphocytes (Bld) [#/Vol] 2.6 10*3/uL Normal 1.0-3.5 [facility] Comment on above: Performed By: #### Franco CHACON, CMP, 64015-8, 87348-5 #### [facility] ([id number]) [address] [place] [address] 09105 Lymphocytes/100 WBC (Bld) 33.3 % Normal [facility] Comment on above: Performed By: #### Franco CHACON, CMP, 07331-0, 51668-5 #### [facility] ([id number]) [address] [place] [address] 36628 MCH (RBC) [Entitic mass] 30.1 pg Normal 27-34 [facility] Comment on above: Performed By: #### C OSWALDO, CMP, 91027-9, 36747-9 #### [facility] ([id number]) [address] [place] [address] 90375 MCHC (RBC) [Mass/Vol] 34.4 g/dL Normal 32-36 [facility] Comment on above: Performed By: #### Franco CHACON, CMP, 29726-0, 76525-6 #### [facility] ([id number]) [address] [place] [address] 02684 MCV (RBC) [Entitic vol] 88 fL Normal 80-100 [facility] Comment on above: Performed By: #### Franco CHACON CMP, 93749-2, 42916-5 #### [facility] ([id number]) [address] [place] [address] 62302 Monocytes (Bld) [#/Vol] 0.6 10*3/uL Normal 0-0.9 [facility] Comment on above: Performed By: #### Franco CHACON, CMP, 07672-1, 81606-9 #### [facility] ([id number]) [address] [place] [address] 38225 Monocytes/100 WBC (Bld) 7.1 % Normal [facility] Comment on above: Performed By: #### Franco CHACON, CMP, 93204-1, 70368-5 #### [facility] ([id number]) [address] [place] [address] 46627 Neutrophils/100 WBC (Bld) 57.5 % Normal [facility] Comment on above: Performed By: #### Franco CHACON, CMP, 17713-4, 54121-8 #### [facility] ([id number]) [address] [place] [address] 34790 Platelet mean volume (Bld) [Entitic vol] 8.2 fL Normal 7-12 [facility] Comment on above: Performed By: #### C OSWALDO, CMP, 34477-1, 56875-8 #### [facility] ([id number]) [address] [place] [address] 26915 Platelets (Bld) [#/Vol] 306 10*3/uL Normal 150-450 [facility] Comment on above: Performed By: #### Franco CHACON, CMP, 59968-5, 36864-4 #### [facility] ([id number]) [address] [place] [address] 04176 RBC COUNT 4.42 X10E12/L Normal 3.80-5.20 [facility] Comment on above: Performed By: #### C BCA, CMP, 31147-8, 12908-8 #### [facility] ([id number]) [address] [place] [address] 38582 WBC (Bld) [#/Vol] 7.9 10*3/uL Normal 4.0-11.0 [facility] Comment on above: Performed By: #### C BCA, CMP, 73916-1, 92641-4 #### [facility] ([id number]) [address] [place] [address] 90245 COMPREHENSIVE METABOLIC PANE Haile 11-19-2023 Albumin [Mass/Vol] 4.5 g/dL Normal 3.2-5.3 [facility] Comment on above: Performed By: #### C BCA, CMP, 17494-1, 52509-2 #### [facility] ([id number]) [address] [place] [address] 82320 ALP [Catalytic activity/Vol] 70 U/L Normal 39-130 [facility] Comment on above: Performed By: #### C BCA, CMP, 67089-8, 57819-8 #### [facility] ([id number]) [address] [place] [address] 59088 ALT [Catalytic activity/Vol] 15 U/L Normal 0-31 [facility] Comment on above: Performed By: #### C BCA, CMP, 78017-1, 36535-2 #### [facility] ([id number]) [address] [place] [address] 30329 Anion gap [Moles/Vol] 3 mmol/L Low 5-15 [facility] Comment on above: Performed By: #### C BCA, CMP, 38349-9, 42809-8 #### [facility] ([id number]) [address] [place] [address] 77373 AST [Catalytic activity/Vol] 19 U/L Normal 0-41 [facility] Comment on above: Performed By: #### C BCA, CMP, 52902-4, 90214-2 #### [facility] ([id number]) [address] [place] [address] 11256 Bilirubin [Mass/Vol] 0.5 mg/dL Normal 0.3-1.2 [facility] Comment on above: Performed By: #### C BCA, CMP, 22096-0, 30734-9 #### [facility] ([id number]) [address] [place] [address] 43763 Calcium [Mass/Vol] 8.6 mg/dL Normal 8.5-10.5 [facility] Comment on above: Performed By: #### C BCA, CMP, 84538-4, 40191-1 #### [facility] ([id number]) [address] [place] [address] 75204 Chloride [Moles/Vol] 107 mmol/L Normal 98-109 [facility] Comment on above: Performed By: #### C BCA, CMP, 69447-6, 64955-7 #### [facility] ([id number]) [address] [place] [address] 32420 CO2 [Moles/Vol] 27 mmol/L Normal 22-32 [facility] Comment on above: Performed By: #### C BCA, CMP, 39035-5, 47798-5 #### [facility] ([id number]) [address] [place] [address] 67800 Creatinine [Mass/Vol] 0.98 mg/dL Normal 0.40-1.00 [facility] Comment on above: Result Comment: METH OD TRACEABLE TO IDMS STANDARD Performed By: #### C PIPO CHACON, 52594-7, 64589-6 #### [facility] ([id number]) [address] [place] [address] 41064 GFR/1.73 sq M.predicted among non-blacks MDRD (S/P/Bld) [Vol rate/Area] 82 mL/min/{1.73_m2} Normal >59 [facility] Comment on above: Result Comment: Reported eGFR is based on the CKD-EPI 2020 equation that does not use a race coefficient. Performed By: #### C PIPO CHACON, 23043-4, 41472-9 #### [facility] ([id number]) [address] [place] [address] 40206 Glucose [Mass/Vol] 81 mg/dL Normal 65-99 [facility] Comment on above: Performed By: #### C PIPO CHACON, 43508-9, 43136-5 #### [facility] ([id number]) [address] [place] [address] 17624 Potassium [Moles/Vol] 3.5 mmol/L Normal 3.5-5.0 [facility] Comment on above: Performed By: #### C OSWALDO CMP, 55470-7, 79048-8 #### [facility] ([id number]) [address] [place] [address] 78491 Protein [Mass/Vol] 7.8 g/dL Normal 6.0-8.0 [facility] Comment on above: Performed By: #### C OSWALDO, CMP, 96968-1, 05242-6 #### [facility] ([id number]) [address] [place] [address] 52657 Sodium [Moles/Vol] 137 mmol/L Normal 134-146 [facility] Comment on above: Performed By: #### C OSWALDO, CMP, 62694-5, 51099-6 #### [facility] ([id number]) [address] [place] [address] 90775 Urea nitrogen [Mass/Vol] 15 mg/dL Normal 5-23 [facility] Comment on above: Performed By: #### C OSWALDO PIPO, 34758-6, 00794-7 #### [facility] ([id number]) [address] [place] [address] 64080 Fibrin D-dimer DDU (PPP) [Ma ss/Vol]on 11-19-2023 D DIMER <150 Normal <255 [facility] Comment on above: Result Comment: Results <255 ng/mL DDU: The presence of a VTE can safely be excluded with a negative D-Dimer result and Wells score. A negative result doesn't exclude the possibility of DIC. The test be repeated along with other diagnostic tests if the patient's symptoms persist or worsen. [email or web address] Performed By: #### C PIPO CHACON, 02328-2, 74083-0 #### [facility] ([id number]) [address] [place] [address] 04525 HCG ( test) Ql (U)o n 11-19-2023 Beta HCG ( test) Ql (U) Negative Normal NEG [facility] Comment on above: Performed By: #### 2 106-3 #### [facility] ([id number]) [address] [place] [address] 26645 Troponin I.cardiac High sens itivity method [Mass/Vol]on 11-19-2023 1 HOUR TROP I, HIGH SENSITIVITY <2 Normal <16 [facility] Comment on above: Performed By: #### 8 9579-7 #### [facility] ([id number]) [address] [place] [address] 00934 TROPONIN I, HIGH SENSITIVITY <2 Normal <16 [facility] Comment on above: Performed By: #### C PIPO CHACON, 17563-8, 00177-4 #### [facility] ([id number]) [address] [place] [address] 29857 URN MACROSCOPIC NURon 2023 BILIRUBIN NADYA Negative Normal NEG [facility] Comment on above: Performed By: #### N UM #### [facility] ([id number]) [address] [place] [address] 96375 BLOOD/HGB NADYA Negative Normal NEG [facility] Comment on above: Performed By: #### N UM #### [facility] ([id number]) [address] [place] [address] 18110 GLUCOSE NADYA Negative Normal NEG [facility] Comment on above: Performed By: #### N UM #### [facility] ([id number]) [address] [place] [address] [place] [address] KETONES NADYA Negative Normal NEG [facility] Comment on above: Performed By: #### N UM #### [facility] ([id number]) [address] [place] [address] [place] [address] LEUKOCYTE ESTERASE NADYA Negative Normal NEG [facility] Comment on above: Performed By: #### N UM #### [facility] ([id number]) [address] [place] [address] [place] [address] NITRITE NADYA Negative Normal NEG [facility] Comment on above: Performed By: #### N UM #### [facility] ([id number]) [address] [place] [address] 86038 PH NADYA 8.5 Normal 5.0-8.5 [facility] Comment on above: Performed By: #### N UM #### [facility] ([id number]) [address] [place] [address] 90367 PROTEIN NADYA Negative Normal NEG [facility] Comment on above: Performed By: #### N UM #### [facility] ([id number]) [address] [place] [address] SPECIFIC GRAVITY NADYA 1.015 Normal 1.003-1.035 [facility] Comment on above: Performed By: #### N UM #### [facility] ([id number]) [address] [place] [address] UROBILINOGEN NADYA 1.0 eu/dL Normal <1.1 [facility] Comment on above: Performed By: #### N UM #### [facility] ([id number]) [address] [place] [address] 46430 XR CHEST 2 VWSon 11-19-2023 XR CHEST [...] Anatoly Reynolds DO on 11/19/2023 5:04 PM IPrem MD have personally reviewed the image(s) and agree with and/or edited the report Finalized by Prem Martinez MD on 11/19/2023 5:27 PM Normal [facility] CBC with Diffon 11-17-2023 Abs. Basophil 0.07 k/uL Normal 0.00-0.20 [facility] Comment on above: Performed By: #### D DEBBI, CDP, CP, MG #### [facility] [address] [place] [address] Tip Inserter: Cholo Alicea MD Abs.Imm.Granulocyte <0.03 Normal 0.00-0.30 [facility] Comment on above: Performed By: #### D DEBBI, CDP, CP, MG #### [facility] [address] [place], [facility]83 Tip Inserter: Cholo Alicea MD Abs.Neutrophil (Seg) 4.68 k/uL Normal 1.50-8.10 [facility] Comment on above: Performed By: #### D DEBBI, CDP, CP, MG #### [address] [place] [address] Tip Inserter: Cholo Alicea MD Basophils/100 WBC (Bld) 1 % Normal 0-2 [facility] Comment on above: Performed By: #### D DEBBI, CDP, CP, MG #### [address] [place] [address] Tip Inserter: Cholo Alicea MD Eosinophils (Bld) [#/Vol] 0.05 10*3/uL Normal 0.00-0.44 [facility] Comment on above: Performed By: #### D DEBBI, CDP, CP, MG #### [address] [place], [facility]83 Tip Inserter: Cholo Alicea MD Eosinophils/100 WBC (Bld) 1 % Normal 1-4 [facility] Comment on above: Performed By: #### D DEBBI, CDP, CP, MG #### [address] [place] [address] Tip Inserter: Cholo Alicea MD Erythrocyte distribution width (RBC) [Ratio] 12.2 % Normal 11.8-14.4 [facility] Comment on above: Performed By: #### D DEBBI, CDP, CP, MG #### [address] [place] [address] Tip Inserter: Cholo Alicea MD Hematocrit (Bld) [Volume fraction] 37.6 % Normal 36.3-47.1 [facility] Comment on above: Performed By: #### D DEBBI, CDP, CP, MG #### [address] [place] 8414083 Tip Inserter: Cholo Alicea MD Hemoglobin (Bld) [Mass/Vol] 13.1 g/dL Normal 11.9-15.1 [facility] Comment on above: Performed By: #### D DEBBI, CDP, CP, MG #### [address] [place], [place] 9327183 Tip Inserter: Cholo Alicea MD Immature granulocytes/100 WBC (Bld) 0 % Normal 0 [facility] Comment on above: Performed By: #### D DEBBI, CDP, CP, MG #### [address] [place], [facility]83 Tip Inserter: Cholo Alicea MD Lymphocytes (Bld) [#/Vol] 3.32 10*3/uL Normal 1.10-3.70 [facility] Comment on above: Performed By: #### D DEBBI, CDP, CP, MG #### [address] [place], [facility]83 Tip Inserter: Cholo Alicea MD Lymphocytes/100 WBC (Bld) 38 % Normal 24-43 [facility] Comment on above: Performed By: #### D DEBBI, CDP, CP, MG #### [address] [place], [facility]83 Tip Inserter: Cholo Alicea MD MCH (RBC) [Entitic mass] 30.2 pg Normal 25.2-33.5 [facility] Comment on above: Performed By: #### D DEBBI, CDP, CP, MG #### [address] [place] [address] Tip Inserter: Cholo Alicea MD MCHC (RBC) [Mass/Vol] 34.8 g/dL Normal 28.4-34.8 [facility] Comment on above: Performed By: #### D DEBBI, CDP, CP, MG #### [address] [place] [address] Tip Inserter: Cholo Alicea MD MCV (RBC) [Entitic vol] 86.6 fL Normal 82.6-102.9 [facility] Comment on above: Performed By: #### D DEBBI, CDP, CP, MG #### [address] [place], [facility]83 Tip Inserter: Cholo Alicea MD Monocytes (Bld) [#/Vol] 0.62 10*3/uL Normal 0.10-1.20 [facility] Comment on above: Performed By: #### D DEBBI, CDP, CP, MG #### [address] [place], [facility]83 Tip Inserter: Cholo Alicea MD Monocytes/100 WBC (Bld) 7 % Normal 3-12 [facility] Comment on above: Performed By: #### D DEBBI, CDP, CP, MG #### [address] [place], [facility]83 Tip Inserter: Cholo Alicea MD Neutrophil (Seg) 53 % Normal 36-65 [facility] Comment on above: Performed By: #### D DEBBI, CDP, CP, MG #### [address] [place], [facility]83 Tip Inserter: Cholo Alicea MD NRBC Automated 0.0 per 100 WBC Normal 0.0 [facility] Comment on above: Performed By: #### D DEBBI, CDP, CP, MG #### [address] [place] [address] Tip Inserter: Cholo Alicea MD Platelet mean volume (Bld) [Entitic vol] 10.3 fL Normal 8.1-13.5 [facility] Comment on above: Performed By: #### D DEBBI, CDP, CP, MG #### [address] [place] [address] Tip Inserter: Cholo Alicea MD Platelets (Bld) [#/Vol] 294 10*3/uL Normal 138-453 [facility] Comment on above: Performed By: #### D DEBBI, CDP, CP, MG #### [facility] [address] [place], [place] 2331383 Tip Inserter: Cholo Alicea MD RBC (Bld) [#/Vol] 4.34 10*6/uL Normal 3.95-5.11 [facility] Comment on above: Performed By: #### D DEBBI, CDP, CP, MG #### [address] [place], [place] 4328783 Tip Inserter: Cholo Alicea MD WBC (Bld) [#/Vol] 8.8 10*3/uL Normal 3.5-11.3 [facility] Comment on above: Performed By: #### D DEBBI, CDP, CP, MG #### [address] [place], [place] 5107383 Tip Inserter: Cholo Alicea MD Comp Metabolic Profon 2023 Albumin [Mass/Vol] 4.3 g/dL Normal 3.5-5.2 [facility] Comment on above: Performed By: #### D DEBBI, CDP, CP, MG #### [facility] [address] [place] [address] Dr[place], [place] 2268283 Tip Inserter: Cholo Alicea MD Albumin/Glob Ratio 1.6 Normal 1.0-2.5 [facility] Comment on above: Performed By: #### D DEBBI, CDP, CP, MG #### [facility] [address] [place] [address] Tip Inserter: Cholo Alicea MD Alkaline Phos 75 U/L Normal 35-104 [facility] Comment on above: Performed By: #### D DEBBI, CDP, CP, MG #### [facility] [address] [place], [place] [address]6583 Tip Inserter: Cholo Alicea MD ALT [Catalytic activity/Vol] 9 U/L Normal 5-33 [facility] Comment on above: Performed By: #### D DEBBI, CDP, CP, MG #### [facility] [address] [place], [place] 3923383 Tip Inserter: Cholo Alicea MD Anion gap [Moles/Vol] 11 mmol/L Normal 9-17 [facility] Comment on above: Performed By: #### D DEBBI, CDP, CP, MG #### [facility] [address] [place], [place] 4462783 Tip Inserter: Cholo Alicea MD AST [Catalytic activity/Vol] 15 U/L Normal <32 [facility] Comment on above: Performed By: #### D DEBBI, CDP, CP, MG #### [facility] [address] [place], [place] 0588383 Tip Inserter: Cholo Alicea MD Bilirubin [Mass/Vol] 0.3 mg/dL Normal 0.3-1.2 [facility] Comment on above: Performed By: #### D DEBBI, CDP, CP, MG #### [facility] [address] [place], [place] 0397883 Tip Inserter: Cholo Alicea MD BUN/CRE Ratio 19 Normal 9-20 [facility] Comment on above: Performed By: #### D DEBBI, CDP, CP, MG #### [facility] [address] [place], [place] 8572783 Tip Inserter: Cholo Alicea MD Calcium [Mass/Vol] 8.7 mg/dL Normal 8.6-10.4 [facility] Comment on above: Performed By: #### D DEBBI, CDP, CP, MG #### [facility] [address] [place], [place] 2632683 Tip Inserter: Cholo Alicea MD Chloride [Moles/Vol] 103 mmol/L Normal 98-107 [facility] Comment on above: Performed By: #### D DEBBI, CDP, CP, MG #### [facility] [address] [place] [address] Tip Inserter: Cholo Alicea MD CO2 [Moles/Vol] 24 mmol/L Normal 20-31 [facility] Comment on above: Performed By: #### D DEBBI, CDP, CP, MG #### [facility] [address] [place] [address] Tip Inserter: Cholo Alicea MD Creatinine [Mass/Vol] 0.8 mg/dL Normal 0.5-0.9 [facility] Comment on above: Performed By: #### D DEBBI, CDP, CP, MG #### [facility] [address] [place] [address] Tip Inserter: Cholo Alicea MD GFR/1.73 sq M.predicted among non-blacks MDRD (S/P/Bld) [Vol rate/Area] mL/min/{1.73_m2} Normal >60 [facility] Comment on above: Result Comment: [...] #### D DEBBI, CDP, CP, MG #### [facility] [address] [place] [address] Tip Inserter: Cholo Alicea MD Glucose [Mass/Vol] 98 mg/dL Normal 70-99 [facility] Comment on above: Performed By: #### D DEBBI, CDP, CP, MG #### [facility] [address] [place] [address] Tip Inserter: Cholo Alicea MD Potassium [Moles/Vol] 3.3 mmol/L Low 3.7-5.3 [facility] Comment on above: Performed By: #### D DEBBI, CDP, CP, MG #### [facility] [address] [place] [address] Tip Inserter: Cholo Alicea MD Protein [Mass/Vol] 7.0 g/dL Normal 6.4-8.3 [facility] Comment on above: Performed By: #### D DEBBI, CDP, CP, MG #### [address] [place] [address] Tip Inserter: Cholo Alicea MD Sodium [Moles/Vol] 138 mmol/L Normal 135-144 [facility] Comment on above: Performed By: #### D DEBBI, CDP, CP, MG #### [facility] [address] [place] [address] [place] [address] Tip Inserter: Cholo Alicea MD Urea nitrogen [Mass/Vol] 15 mg/dL Normal 6-20 [facility] Comment on above: Performed By: #### D DEBBI, CDP, CP, MG #### [address] [place] [address] Tip Inserter: Cholo Alicea MD D-Dimer Teston 11-17-2023 D-Dimer Test 0.40 ug/mL FEU Normal 0.00-0.59 [facility] Comment on above: Result Comment: When [...] #### D DEBBI, CDP, CP, MG #### [address] [place] [address] Tip Inserter: Cholo Alicea MD HCG Screen, Bloodon 11-17-19 24 HCG Screen, Blood Negative Normal NEG [facility] Comment on above: Result Comment: Spec imens with hCG levels near the threshold of the test (25 mIU/mL) may give a negative or indeterminate result. In such cases, another test should be performed with a new specimen in 48-72 hours. If early is suspected clinically in this setting, correlation with quantitative serum b-hCG level is suggested. [facility] has confirmed the use of plasma for this test. This has not been cleared or approved by the U.S. Food and Drug Administration. The FDA has determined that such clearance is not necessary. Performed By: #### D DEBBI, CDP, CP, MG #### [address] [place] [address] Tip Inserter: Cholo Alicea MD Magnesiumon 9 Magnesium [Mass/Vol] 1.8 mg/dL Normal 1.6-2.6 [facility] Comment on above: Performed By: #### D DEBBI, CDP, CP, MG #### [address] [place] [address] Tip Inserter: Cholo Alicea MD [id number] 11-17-2023 SARS-CoV-2 (COVID-19) RNA ALEKSANDER+probe Ql (Unsp spec) Not detected Normal NOTDET [facility] Comment on above: Result Comment: Rapid NAAT: [...] management decisions. Fact sheet for Healthcare Providers: https://www.fda.gov/media/421458/download Fact sheet for Patients: https://www.fda.gov/media/937972/download Methodology: Isothermal Nucleic Acid Amplification Performed By: #### C OVRB #### [facility] [address] [place], [place] 57[address] Tip Inserter: Cholo Alicea MD XR CHEST (2 VW)on [...] Rosalee Guevara MD 11/17/23 Final result Normal [facility] Ambulatory Visit Summaryon 0 11-08-2023 Ambulatory Visit [...] for choosing us for your care. Normal [facility] RAD - MISCon 11-07-2023 RAD - MISC [id number] #1.00TIFF Normal [facility] RAD - Ultrasound Reporton RAD - Ultrasound Report [id number] #1.00TIFF Normal [facility] RAD - CT Reporton 05-25-2023 RAD - CT Report [id number] #1.00TIFF Normal [facility] HCG ( test) Jacquelyn izquierdo Ql (U)Ordered By: Fany Ceballos on 05-19-2023 HCG ( test) Ql (U) Negative [facility] HCG,Urineon 05-19-2023 Beta HCG ( test) Ql (U) Negative Normal [facility] Comment on above: Result Comment: PERF ORMED BY: [address] [place] [address] PATHOLOGIST HEALTHCARE ECONOMICS CONSULTANT MOISES VELASCO M.D. Performed By: #### U HCG #### [address] 05-19-2023 L Specimen: [id number] Received: 05/20/23 Status: RUDY [place] Num: [id number] Spec Type: Surgical Subm Dr: Fany Ceballos MD Tissues: A Duodenum - Biopsy (DUODENAL BX) B Esophagus Biopsy (ESOPHAGUS BX) Procedures: HE/4, Gross/Micro L4/2 Age/ Patient Sex Location Account Attending Physician Lulú Gaitan /F [id number] Fany Ceballos MD SPEC NUM: [id number] RECD: 05/20/23 STATUS: RUDY [place] NUM: [id number] PHILIP: 05/19/23- [facility] DR: Fany Ceballos MD ENTERED: 05/20/[address] [facility] DR: SPEC TYPE: Surgical DEPT: S ORDERED: [...] submitted in one cassette labeled B1. Specimen: [id number] Received: 05/20/23 Status: RUDY [place] Num: [id number] Spec Type: Surgical Subm Dr: Fany Ceballos MD Tissues: A Duodenum - Biopsy (DUODENAL BX) B Esophagus Biopsy (ESOPHAGUS BX) Procedures: MARIELOS Gross/Micro L4/2 Patient: MarcellusadilsonLulú L [id number] (Continued) Specimen: [id number] Received: 05/20/23 (Continued) Signed (signature on file) Cielo Trimble MD 05/24/23 2301 Specimen: [id number] Received: 05/20/23 Status: RUDY [place] Num: [id number] Spec Type: Surgical Subm Dr: Fany Ceballos MD Tissues: A Duodenum - Biopsy (DUODENAL BX) B Esophagus Biopsy (ESOPHAGUS BX) Procedures: HE/4, Gross/Micro L4/2 Patient: KandyLulú L [id number] (Continued) Specimen: [id number] Received: 05/20/23 (Continued) Microscopic Description A. Two H E slides reviewed. The microscopic examination confirms the diagnosis. B. Two H E slides reviewed. The microscopic examination confirms the diagnosis. CPT Codes 09938j5 Specimen: [id number] Received: 05/20/23 Status: RUDY [place] Num: [id number] Spec Type: Surgical Subm Dr: Fany Ceballos MD Tissues: A Duodenum - Biopsy (DUODENAL BX) B Esophagus Biopsy (ESOPHAGUS BX) Procedures: Mary Anne ARCEO/Jaren L4/2 Patient: Lulú Gaitan [id number] (Continued) Signed (signature on file) Cielo Trimble MD 05/24/23 2843 Normal [facility] CT abdomen pelvis w conon CT abdomen pelvis w con [facility] Main [place] [address] [place] [address] CT Scan Report Signed Patient: Lulú Gaitan MR#: [id number] 4 : 1995 Acct:[id number] Age/Sex: 28 / F ADM Date: 05/12/23 Loc: CT Room: Type: [facility] Attending Dr: Fany Ceballos MD Copies to: [...] Pham Jr., D.OAung05/12/2023 10:29 AM Dictation Location: [place] [address] Transcribed By: [facility] 05/12/23 1029 Dictated By: Samy Pham Jr, 05/12/23 1023 Signed By: 05/12/23 1029 [facility] Physician [facility] Consent for Procedure/Surger yon 05-11-2023 Consent for Procedure/Surgery [id number] 6#1.00TIFF Normal [facility] Ambulatory Visit Summaryon 1 07-11-2022 Ambulatory Visit [...] Rishi MARSHALL MD Where: [facility] [place] [facility] Patient Educationon 05-10-20 Patient Education Urology Hematuria, [...] these instructions at home: Medicines ? Take hjmy-ajr-kewmsfk and prescription medicines only as told by [...] the blood stops without treatment. ? Take tvpe-uxa-cwvmovz and prescription medicines only as told by your health care provider. ? Drink enough fluid to keep your urine pale yellow. This information is not intended to replace advice given to you by your health care provider. Make sure you discuss any questions you have with your health care provider. Document Revised: 01/14/2021 Document Reviewed: 01/14/2021 [employer] Patient Education ? 2022 [employer]. [facility] Urology Office/Clinic Noteon 05-10-2023 Urology Office/Clinic [...] Bactrim x 3 days empirically. went to [place] [facility] next day bc blood persisted. CT [...] [facility] [address], [place] [address]- Additional Instructions: w/PVR Patient Education Hematuria, Adult I, Johana De Jesus , personally scribed for Dr. Marshall on 05/10/2023 11:52:58. . Portions of this record may have been created with voice recognition artificial intelligence software, specifically [employer], [employer] and or [employer]. Substitutions may have occurred due to the [...] Daily busPIRon (more content not included)... Normal [facility] Comment on above: Result Comment: Elec tronically Signed By: Rishi MARSHALL MD\.br\Date and Time Signed: 05/10/23 11:55 EST\.br\Electronically Co-Signed By: Johana De Jesus\.br\Date and Time Co-Signed: 05/10/23 11:53 EST RAD [facility] 04-26-2023 RAD - MIS [id number]# 1.00TIFF Normal [facility] Lab Reportson 04-15-2023 Lab Reports [id number]# 1.00TIFF Normal [facility] Operative Reporton Operative Report [id number] #1.00TIFF Normal [facility] Lab Reportson 04-08-2023 Lab Reports [id number] #1.00TIFF Normal [facility] Insurance Correspondenceon 1 05-30-2022 Insurance Correspondence [id number] 4#1.00TIFF Normal [facility] Consent for Procedure/Surger yon 03-24-2023 Consent for Procedure/Surgery [id number]#1.00TIFF Normal [facility] CT ABDOMEN PELVIS W IV CONTR Derrick [...] Jennie Hernández MD 03/11/23 Final result Normal [facility] Cult,Urineon 03-11-2023 Cult,Urine Specimen Description .CLEAN CATCH URINE Culture NO SIGNIFICANT GROWTH Report Status FINAL 03/11/2023 Normal [facility] Comment on above: Performed By: #### D DEBBI, CDP, CP, MG #### [address] [place], [place] [address] Tip Inserter: Cholo Alicea MD CBC with Diffon 03-10-2023 Abs. Basophil 0.05 k/uL Normal 0.00-0.20 [facility] Comment on above: Performed By: #### D DEBBI, CDP, CP, MG #### [address] [place], [place] [address]83 Tip Inserter: Cholo Alicea MD Abs.Imm.Granulocyte <0.03 Normal 0.00-0.30 [facility] Comment on above: Performed By: #### D DEBBI, CDP, CP, MG #### [address] [place], [place] 2633583 Tip Inserter: Cholo Alicea MD Abs.Neutrophil (Seg) 3.36 k/uL Normal 1.50-8.10 [facility] Comment on above: Performed By: #### D DEBBI, CDP, CP, MG #### [address] [place] [address] Tip Inserter: Cholo Alicea MD Basophils/100 WBC (Bld) 1 % Normal 0-2 M [facility] Comment on above: Performed By: #### D DEBBI, CDP, CP, MG #### [address] [place], [place] 7388383 Tip Inserter: Cholo Alicea MD Eosinophils (Bld) [#/Vol] 0.05 10*3/uL Normal 0.00-0.44 [facility] Comment on above: Performed By: #### D DEBBI, CDP, CP, MG #### [address] [place], [place] 0505483 Tip Inserter: Cholo Alicea MD Eosinophils/100 WBC (Bld) 1 % Normal 1-4 [facility] Comment on above: Performed By: #### D DEBBI, CDP, CP, MG #### [address] [place], [place] [id number] Tip Inserter: Cholo Alicea MD Erythrocyte distribution width (RBC) [Ratio] 11.9 % Normal 11.8-14.4 [facility] Comment on above: Performed By: #### D DEBBI, CDP, CP, MG #### [address] [place], [facility]83 Tip Inserter: Cholo Alicea MD Hematocrit (Bld) [Volume fraction] 37.5 % Normal 36.3-47.1 [facility] Comment on above: Performed By: #### D DEBBI, CDP, CP, MG #### [address] [place], [place] [id number] Tip Inserter: Cholo Alicea MD Hemoglobin (Bld) [Mass/Vol] 12.9 g/dL Normal 11.9-15.1 [facility] Comment on above: Performed By: #### D DEBBI, CDP, CP, MG #### [address] [place], [place] [id number] Tip Inserter: Cholo Alicea MD Immature granulocytes/100 WBC (Bld) 0 % Normal 0 [facility] Comment on above: Performed By: #### D DEBBI, CDP, CP, MG #### [address] [place] [address] Tip Inserter: Cholo Alicea MD Lymphocytes (Bld) [#/Vol] 2.79 10*3/uL Normal 1.10-3.70 [facility] Comment on above: Performed By: #### D DEBBI, CDP, CP, MG #### [address] [place], [place] [id number] Tip Inserter: Cholo Alicea MD Lymphocytes/100 WBC (Bld) 42 % Normal 24-43 [facility] Comment on above: Performed By: #### D DEBBI, CDP, CP, MG #### [address] [place], [place] 1149483 Tip Inserter: Cholo Alicea MD MCH (RBC) [Entitic mass] 30.4 pg Normal 25.2-33.5 [facility] Comment on above: Performed By: #### D DEBBI, CDP, CP, MG #### [address] [place], [facility]83 Tip Inserter: Cholo Alicea MD MCHC (RBC) [Mass/Vol] 34.4 g/dL Normal 28.4-34.8 [facility] Comment on above: Performed By: #### D DEBBI, CDP, CP, MG #### [address] [place], [place] [id number] Tip Inserter: Cholo Alicea MD MCV (RBC) [Entitic vol] 88.2 fL Normal 82.6-102.9 M [facility] Comment on above: Performed By: #### D DEBBI, CDP, CP, MG #### [address] [place], [place] [id number] Tip Inserter: Cholo Alicea MD Monocytes (Bld) [#/Vol] 0.46 10*3/uL Normal 0.10-1.20 [facility] Comment on above: Performed By: #### D DEBBI, CDP, CP, MG #### [address] [place], [place] [id number] Tip Inserter: Cholo Alicea MD Monocytes/100 WBC (Bld) 7 % Normal 3-12 M [facility] Comment on above: Performed By: #### D DEBBI, CDP, CP, MG #### [facility] [address] [place], [place] [phone] Tip Inserter: Cholo Alicea MD Neutrophil (Seg) 49 % Normal 36-65 [facility] Comment on above: Performed By: #### D DEBBI, CDP, CP, MG #### [facility] [address] [place], [place] [phone] Tip Inserter: Cholo Alicea MD NRBC Automated 0.0 per 100 WBC Normal 0.0 [facility] Comment on above: Performed By: #### D DEBBI, CDP, CP, MG #### [facility] [address] [place] [address] Dr[place], [place] [phone] Tip Inserter: Cholo Alicea MD Platelet mean volume (Bld) [Entitic vol] 10.5 fL Normal 8.1-13.5 [facility] Comment on above: Performed By: #### D DEBBI, CDP, CP, MG #### [address] [place], [place] 8082483 Tip Inserter: Cholo Alicea MD Platelets (Bld) [#/Vol] 320 10*3/uL Normal 138-453 [facility] Comment on above: Performed By: #### D DEBBI, CDP, CP, MG #### [facility] [address] [place], [place] [phone] Tip Inserter: Cholo Alicea MD RBC (Bld) [#/Vol] 4.25 10*6/uL Normal 3.95-5.11 [facility] Comment on above: Performed By: #### D DEBBI, CDP, CP, MG #### [facility] [address] [place], [place] 0508283 Tip Inserter: Cholo Alicea MD WBC (Bld) [#/Vol] 6.7 10*3/uL Normal 3.5-11.3 [facility] Comment on above: Performed By: #### D DEBBI, CDP, CP, MG #### [facility] [address] [place], [place] 9951283 Tip Inserter: Cholo Alicea MD Comp Metabolic Profon 2022 Albumin [Mass/Vol] 4.6 g/dL Normal 3.5-5.2 [facility] Comment on above: Performed By: #### D DEBBI, CDP, CP, MG #### [facility] [address] [place] [address] Dr[place], [place] 7691083 Tip Inserter: Cholo Alicea MD Albumin/Glob Ratio 1.5 Normal 1.0-2.5 [facility] Comment on above: Performed By: #### D DEBBI, CDP, CP, MG #### [facility] [address] [place] [address] [address], [place] [phone] Tip Inserter: Cholo Alicea MD Alkaline Phos 72 U/L Normal 35-104 [facility] Comment on above: Performed By: #### D DEBBI, CDP, CP, MG #### [address] [place], [place] 9082983 Tip Inserter: Cholo Alicea MD ALT [Catalytic activity/Vol] 42 U/L High 5-33 [facility] Comment on above: Performed By: #### D DEBBI, CDP, CP, MG #### [facility] [address] [place] [address] [place], [place] 6553483 Tip Inserter: Cholo Alicea MD Anion gap [Moles/Vol] 11 mmol/L Normal 9-17 [facility] Comment on above: Performed By: #### D DEBBI, CDP, CP, MG #### [facility] [address] [place] [address] [place], [place] 4441283 Tip Inserter: Cholo Alicea MD AST [Catalytic activity/Vol] 31 U/L Normal <32 [facility] Comment on above: Performed By: #### D DEBBI, CDP, CP, MG #### [facility] [address] [place] [address] [place] [address] Tip Inserter: Cholo Alicea MD Bilirubin [Mass/Vol] 0.4 mg/dL Normal 0.3-1.2 [facility] Comment on above: Performed By: #### D DEBBI, CDP, CP, MG #### [facility] [address] [place] [address] [place], [place] 1243783 Tip Inserter: Cholo Alicea MD BUN/CRE Ratio 10 Normal 9-20 [facility] Comment on above: Performed By: #### D DEBBI, CDP, CP, MG #### [facility] [address] [place] [address] Dr[place], [place] 0852183 Tip Inserter: Cholo Alicea MD Calcium [Mass/Vol] 10.4 mg/dL Normal 8.6-10.4 [facility] Comment on above: Performed By: #### D DEBBI, CDP, CP, MG #### [address] [place], [place] 3063483 Tip Inserter: Cholo Alicea MD Chloride [Moles/Vol] 101 mmol/L Normal 98-107 [facility] Comment on above: Performed By: #### D DEBBI, CDP, CP, MG #### [facility] [address] [place] [address] [place] [address] Tip Inserter: Cholo Alicea MD CO2 [Moles/Vol] 26 mmol/L Normal 20-31 [facility] Comment on above: Performed By: #### D DEBBI, CDP, CP, MG #### [facility] [address] [place] [address] [place] [address] Tip Inserter: Cholo Alicea MD Creatinine [Mass/Vol] 0.9 mg/dL Normal 0.5-0.9 [facility] Comment on above: Performed By: #### D DEBBI, CDP, CP, MG #### [address] [place] [address] Tip Inserter: Cholo Alicea MD GFR/1.73 sq M.predicted among non-blacks MDRD (S/P/Bld) [Vol rate/Area] mL/min/{1.73_m2} Normal >60 [facility] Comment on above: Result Comment: [...] #### D DEBBI, CDP, CP, MG #### [address] [place] [address] Tip Inserter: Cholo Alicea MD Glucose [Mass/Vol] 97 mg/dL Normal 70-99 [facility] Comment on above: Performed By: #### D DEBBI, CDP, CP, MG #### [address] [place] [address] Tip Inserter: Cholo Alicea MD Potassium [Moles/Vol] 4.2 mmol/L Normal 3.7-5.3 [facility] Comment on above: Performed By: #### D DEBBI, CDP, CP, MG #### [address] [place] [address] Tip Inserter: Cholo Alicea MD Protein [Mass/Vol] 7.6 g/dL Normal 6.4-8.3 [facility] Comment on above: Performed By: #### D DEBBI, CDP, CP, MG #### [address] [place] [address] Tip Inserter: Cholo Alicea MD Sodium [Moles/Vol] 138 mmol/L Normal 135-144 [facility] Comment on above: Performed By: #### D DEBBI, CDP, CP, MG #### [facility] [address] [place] [address] Tip Inserter: Cholo Alicea MD Urea nitrogen [Mass/Vol] 9 mg/dL Normal 6-20 [facility] Comment on above: Performed By: #### D DEBBI, CDP, CP, MG #### [facility] [address] [place] [address] Tip Inserter: Cholo Alicea MD Creatine Kinaseon 03-10-2023 CK [Catalytic activity/Vol] 51 U/L Normal 26-192 [facility] Comment on above: Performed By: #### D DEBBI, CDP, CP, MG #### [facility] [address] [place] [address] Tip Inserter: Cholo Alicea MD HCG, ,Urineon 03-10 Beta HCG ( test) Ql (U) Negative Normal NEG [facility] Comment on above: Result Comment: Spec imens with hCG levels near the threshold of the test (25 mIU/mL) may give a negative or indeterminate result. In such cases, another test should be performed with a new specimen in 48-72 hours. If early is suspected clinically in this setting, correlation with quantitative serum b-hCG level is suggested. [facility] has confirmed the use of plasma for this test. This has not been cleared or approved by the U.S. Food and Drug Administration. The FDA has determined that such clearance is not necessary. Performed By: #### D DEBBI, CDP, CP, MG #### [facility] [address] [place] [address] Tip Inserter: Cholo Alicea MD Urinalysis w/ Microon 2022 Bacteria TRACE Abnormal NONE [facility] Comment on above: Performed By: #### D DEBBI, CDP, CP, MG #### [facility] [address] [place], [place] 6241683 Tip Inserter: Cholo Alicea MD Bilirubin, SemiQt,Ur Negative Normal NEG [facility] Comment on above: Performed By: #### D DEBBI, CDP, CP, MG #### [facility] [address] [place] [address] [place], [place] 5223783 Tip Inserter: Cholo Alicea MD Blood, Urine Negative Normal NEG [facility] Comment on above: Performed By: #### D DEBBI, CDP, CP, MG #### [address] [place], [place] 9521383 Tip Inserter: Cholo Alicea MD Clarity (U) Clear Normal CLEAR [facility] Comment on above: Performed By: #### D DEBBI, CDP, CP, MG #### [address] [place], [place] 4349783 Tip Inserter: Cholo Alicea MD Color (U) Yellow Normal YEL [facility] Comment on above: Performed By: #### D DEBBI, CDP, CP, MG #### [address] [place] [address] Tip Inserter: Cholo Alicea MD Epithelial cells LM Ql (Urine sed) 0 TO 2 Normal 0-25 [facility] Comment on above: Performed By: #### D DEBBI, CDP, CP, MG #### [facility] [address] [place] [address] [place], [place] 2211583 Tip Inserter: Cholo Alicea MD Glucose Ql (U) Negative Normal NEG [facility] Comment on above: Performed By: #### D DEBBI, CDP, CP, MG #### [facility] [address] [place] [address] Dr[place], [place] 6082183 Tip Inserter: Cholo Alicea MD Ketones Ql (U) Negative Normal NEG [facility] Comment on above: Performed By: #### D DEBBI, CDP, CP, MG #### [facility] [address] [place] [address] [place], [place] 2649383 Tip Inserter: Cholo Alicea MD Leukocyte esterase Test strip Ql (U) Negative Normal NEG [facility] Comment on above: Performed By: #### D DEBBI, CDP, CP, MG #### [address] [place] [address] Tip Inserter: Cholo Alicea MD Nitrite,Ur Negative Normal NEG [facility] Comment on above: Performed By: #### D DEBBI, CDP, CP, MG #### [address] [place], [place] 4974983 Tip Inserter: Cholo Alicea MD PH,Ur 7.5 Normal 5.0-9.0 [facility] Comment on above: Performed By: #### D DEBBI, CDP, CP, MG #### [address] [place], [place] 4908783 Tip Inserter: Cholo Alicea MD Protein Ql (U) Negative Normal NEG [facility] Comment on above: Performed By: #### D DEBBI, CDP, CP, MG #### [address] [place] [address] Tip Inserter: Cholo Alicea MD Spec. Nocatee,Ur 1.010 Normal 1.010-1.020 [facility] Comment on above: Performed By: #### D DEBBI, CDP, CP, MG #### [address] [place], [place] 2387983 Tip Inserter: Cholo Alicea MD Urine RBC's None Normal 0-2 [facility] Comment on above: Performed By: #### D DEBBI, CDP, CP, MG #### [facility] [address] [place], [place] 1907883 Tip Inserter: Cholo Alicea MD Urine WBC's 0 TO 2 Normal 0-5 [facility] Comment on above: Performed By: #### D DEBBI, CDP, CP, MG #### [facility] [address] [place] [address] Tip Inserter: Cholo Alicea MD Urobilinogen,Ur Normal Normal 0.0-1.0 [facility] Comment on above: Performed By: #### D DEBBI, CDP, CP, MG #### [facility] [address] [place] [address] Tip Inserter: Cholo Alicea MD COVID + FLU Quick Testingon 02-11-2023 SARS-CoV-2 (COVID-19) RNA ALEKSANDER+probe Ql (Unsp spec) Negative [facility] Other COVID + FLU Quick Testing Negative [employer] Other Quick Strepon 02-11-2023 S. pyogenes Org specific cx Ql (Throat) Negative [employer] Other Quick Strep [employer] Other CNPNon 02-03-2023 CNPN Telephone (GASTSP) LULÚ GAITAN ([id number]) 1995 F Date Time Provider Department 02/03/23 CHRISTINE MACIAS [facility] During your visit today, we recorded [...] list full name of hospital or facility)? [facility] If the patient had a gastric emptying [...] G/J Tube?No Preferred phone number for contact: [phone] ? Viviana David 02/03/2023 3:38 PM Signed [...] Status:Closed by VIVIANA DAVID on 02/04/23 Normal [facility] ECG 12 lead ECGon 02-03-2023 ECG 12 lead ECG [facility] [place] [address] [place] [address] Electrocardiograph Report Signed Patient: Lulú Gaitan MR#: [id number] 4 : 1995 Acct:[id number] Age/Sex: 27 / F ADM Date: 02/02/23 Loc: Room: [address] [place] [address] Type: ADM IN Attending Dr: Karri Kamara [...] Mauro MD 0 02/04/23 1319 Normal [facility] Alanine aminotransferase [En zymatic activity/volume] in Serum or PlasmaOrdered By: Matthew Leslie on 02-02-2023 ALT [Catalytic activity/Vol] 38 U/L Normal 7-52 [facility] Comment on above: Performed By: #### C ASIM BARONE, MARICRUZ, URDS #### [facility] [address] Albumin [Mass/volume] in Ser um or Plasma by Bromocresol green (BCG) dye binding methoOrdered By: Matthew Leslie on 02-02-2023 Albumin BCG dye [Mass/Vol] 4.6 g/dL 3.5-5.7 [facility] Alkaline phosphatase [Enzyma tic activity/volume] in Serum or PlasmaOrdered By: Matthew Leslie on 02-02-2023 ALP [Catalytic activity/Vol] 54 U/L Normal 34-104 [facility] Comment on above: Performed By: #### C POPEYE BARONEG, MARCIRUZ, URDS #### [facility] [address] Amphetamine Screen Ql (U)Ord ered By: Matthew Leslie on 02-02-2023 Amphetamines Ql (U) Negative Negative [facility] Aspartate aminotransferase [ Enzymatic activity/volume] in Serum or PlasmaOrdered By: Matthew Leslie on 02-02-2023 AST [Catalytic activity/Vol] 32 U/L Normal 13-39 [facility] Comment on above: Performed By: #### C UU, UHCG, ADDONUAPLUS, URDS #### [facility] [address] [place] [address] Automated basophil %Ordered By: Matthew Leslie on 02-02-2023 Basophils/100 WBC (Bld) 0.9 % Normal . [facility] Comment on above: Performed By: #### E TANYA, HEPATIC, TSH3 wRFLX, CBC, CMP, [id number] #### [address] Automated basophil countOrde red By: Matthew Leslie on 02-02-2023 Basophils (Bld) [#/Vol] 0.1 10*3/uL Normal 0.0-0.2 [facility] Comment on above: Result Comment: PERF ORMED BY: [place] [address] PATHOLOGIST HEALTHC[employer] ECONOMICS CONSULTANT MOISES VELASCO M.D. Performed By: #### E TANYA, HEPATIC, TSH3 wRFLX, CBC, CMP, [id number] #### [address] Automated blood monocyte cou ntOrdered By: Matthew Leslie on 02-02-2023 Monocytes (Bld) [#/Vol] 0.6 10*3/uL Normal 0.0-0.8 [facility] Comment on above: Performed By: #### E TANYA, HEPATIC, TSH3 wRFLX, CBC, CMP, [id number] #### [address] Automated eosinophil %Ordere d By: Matthew Leslie on 02-02-2023 Eosinophils/100 WBC (Bld) 0.4 % Normal . [facility] Comment on above: Performed By: #### E TANYA, HEPATIC, TSH3 wRFLX, CBC, CMP, [id number] #### [facility] [address] Automated eosinophil countOr dered By: Matthew Leslie on 02-02-2023 Eosinophils (Bld) [#/Vol] 0.0 10*3/uL Normal 0.0-0.45 [facility] Comment on above: Performed By: #### E TANYA, HEPATIC, TSH3 wRFLX, CBC, CMP, [id number] #### [facility] [address] Automated erythrocytes count in urine sediment (number/area)Ordered By: Matthew Leslie on 02-02-2023 RBC Auto (Urine sed) [#/Area] 10-19 [HPF] 0-4 [facility] Automated leukocytes count i n urine sediment (number/area)Ordered By: Matthew Leslie on 02-02-2023 WBC Auto (Urine sed) [#/Area] 10-19 [HPF] 0-4 [facility] Automated monocyte %Ordered By: Matthew Leslie on 02-02-2023 Monocytes/100 WBC (Bld) 7.9 % Normal . [facility] Comment on above: Performed By: #### E TANYA, HEPATIC, TSH3 wRFLX, CBC, CMP, [id number] #### [facility] [address] Automated neutrophil %Ordere d By: Matthew Leslie on 02-02-2023 Neutrophils/100 WBC (Bld) 54.8 % Normal . [facility] Comment on above: Performed By: #### E TANYA, HEPATIC, TSH3 wRFLX, CBC, CMP, [id number] #### [facility] [address] Automated urine color determ inationOrdered By: Matthew Leslie on 02-02-2023 Color (U) Yellow Normal Yellow [facility] Comment on above: Order Comment: Name Collection Type:: Clean-Voided Midstream Performed By: #### C UU, UHCG, ADDONUAPLUS, URDS #### [facility] [address] Automated urine hyaline cast s count (number/volume)Ordered By: Matthew Leslie on 02-02-2023 Hyaline casts Auto (U) [#/Vol] 0-1 [LPF] 0-1 [facility] Barbiturates [Presence] in U rine by Screen methodOrdered By: Matthew Leslie on 02-02-2023 Barbiturates Screen Ql (U) Negative Negative [facility] Benzodiazepines Screen Ql (U )Ordered By: Matthew Leslie on 02-02-2023 Benzodiazepines Ql (U) Negative Negative [facility] Benzoylecgonine [Presence] i n Urine by Screen methodOrdered By: Matthew Leslie on 02-02-2023 Benzoylecgonine Screen Ql (U) Negative Negative [facility] Bilirubin Test strip Ql (U)O rdered By: Matthew Leslie on 02-02-2023 Bilirubin Ql (U) Negative Negative [facility] Bilirubin.direct [Mass/volum e] in Serum or PlasmaOrdered By: Matthew Leslie on 02-02-2023 Bilirubin.direct [Mass/Vol] 0.10 mg/dL 0.03-0.18 [facility] Bilirubin.total [Mass/volume ] in Serum or PlasmaOrdered By: Matthew Leslie on 02-02-2023 Bilirubin [Mass/Vol] 0.6 mg/dL Normal 0.3-1.0 [facility] Comment on above: Performed By: #### C UU, JULIANECG, MARICRUZ, URDS #### [facility] [address] [place] [address] [place] Calcium [Mass/volume] in Ser um or PlasmaOrdered By: Matthew Leslie on 02-02-2023 Calcium [Mass/Vol] 9.5 mg/dL Normal 8.6-10.3 [facility] Comment on above: Performed By: #### C UU, UHCG, ADDONUAPLUS, URDS #### [facility] [address] Cannabinoids [Presence] in U rine by Screen methodOrdered By: Matthew Leslie on 02-02-2023 Cannabinoids Screen Ql (U) Negative Negative [facility] Comment on above: These are unconfirme d results and should not be used for legal purposes. Drug Cut-Off Concentration: AMPH 1000 ng/mL PONCHO 200 ng/mL KRISTAN 200 ng/mL COCM 300 ng/mL OP 300 ng/mL PCP 25 ng/mL THC 20 ng/mL Carbon dioxide, total [Moles /volume] in Serum or PlasmaOrdered By: Matthew Leslie on 02-02-2023 CO2 [Moles/Vol] 28.3 mmol/L Normal 21.0-31.0 [facility] Comment on above: Performed By: #### C UU, UHCG, ADDONUAPLUS, URDS #### [facility] [address] Casts typing in urine sedime nt by light microscopyOrdered By: Matthew Leslie on 02-02-2023 Casts LM Nom (Urine sed) None seen [LPF] None Seen [facility] Chloride [Moles/volume] in S barbra or PlasmaOrdered By: Matthew Leslie on 02-02-2023 Chloride [Moles/Vol] 107 mmol/L Normal 98-107 [facility] Comment on above: Performed By: #### C UU, UHCG, ADDONUAPLUS, URDS #### [facility] [address] Complete Blood Count Auto Di ffon 02-02-2023 Mean Corpuscular HGB Conc 33.6 g/dL Normal 32.0-35.0 [facility] Comment on above: Performed By: #### E TANYA, HEPATIC, TSH3 wRFLX, CBC, CMP, [id number] #### [facility] [address] [place] [address] [place] Monocytes/100 WBC (Bld) 17.83 % Normal 0.00-20.00 [facility] Comment on above: Performed By: #### E TANYA, HEPATIC, TSH3 wRFLX, CBC, CMP, [id number] #### [facility] [address] [place] [address] [place] NRBC% 0.0 /100{WBC} Normal 0-0.5 [facility] Comment on above: Performed By: #### E TANYA, HEPATIC, TSH3 wRFLX, CBC, CMP, [id number] #### [address] Comprehensive Metabolic Pane haile 02-02-2023 Albumin [Mass/Vol] 4.6 g/dL Normal 3.5-5.7 [facility] Comment on above: Performed By: #### C UU, UHCG, ADDONUAPLUS, URDS #### [address] Creatinine Clr Calc Pharmacy 76.05 Normal [facility] Comment on above: Result Comment: PERF ORMED BY: [place] [address] PATHOLOGIST HEALTHC[employer] ECONOMICS CONSULTANT MOISES VELASCO M.D. Performed By: #### C UU, UHCG, ADDONUAPLUS, URDS #### [address] GFR/1.73 sq M.predicted MDRD (S/P/Bld) [Vol rate/Area] mL/min/{1.73_m2} Normal [facility] Comment on above: Performed By: #### C UU, UHCG, ADDONUAPLUS, URDS #### [address] Creatinine [Mass/volume] in Serum or PlasmaOrdered By: Matthew Leslie on 02-02-2023 Creatinine [Mass/Vol] 1.14 mg/dL Normal 0.60-1.20 [facility] Comment on above: Performed By: #### C UU, UHCG, ADDONUAPLUS, URDS #### [place] [address] [place] Dipstick and Microscopicon 0 02-02-2023 Appearance (U) Cloudy Critically abnormal Clear [facility] Comment on above: Order Comment: Name Collection Type:: Clean-Voided Midstream Performed By: #### C UU, UHCG, ADDONUAPLUS, URDS #### [address] [place] [address] [place] Bacteria,Urine 1+ High None Seen [facility] Comment on above: Order Comment: Name Collection Type:: Clean-Voided Midstream Performed By: #### C UU, UHCG, ADDONUAPLUS, URDS #### [facility] [address] Bilirubin,Urine Negative Normal Negative [facility] Comment on above: Order Comment: Name Collection Type:: Clean-Voided Midstream Performed By: #### C UU, UHCG, ADDONUAPLUS, URDS #### [address] Glucose Ql (U) Normal Normal Normal [facility] Comment on above: Order Comment: Name Collection Type:: Clean-Voided Midstream Performed By: #### C UU, UHCG, ADDONUAPLUS, URDS #### [place] [address] [place] Hyaline Casts,Urine 0-1 Normal 0-1 [facility] Comment on above: Order Comment: Name Collection Type:: Clean-Voided Midstream Performed By: #### C UU, UHCG, ADDONUAPLUS, URDS #### [place] [address] [place] Ketones Ql (U) 2+ High Negative [facility] Comment on above: Order Comment: Name Collection Type:: Clean-Voided Midstream Performed By: #### C UU, UHCG, ADDONUAPLUS, URDS #### [place] [address] [place] Leukocyte esterase Test strip Ql (U) 2+ High Negative [facility] Comment on above: Order Comment: Name Collection Type:: Clean-Voided Midstream Performed By: #### C UU, UHCG, ADDONUAPLUS, URDS #### [place] [address] [place] Nitrite,Urine Negative Normal Negative [facility] Comment on above: Order Comment: Name Collection Type:: Clean-Voided Midstream Performed By: #### C UU, UHCG, ADDONUAPLUS, URDS #### [address] Occult Blood,Urine 3+ High Negative [facility] Comment on above: Order Comment: Name Collection Type:: Clean-Voided Midstream Performed By: #### C UU, UHCG, ADDONUAPLUS, URDS #### [address] Other Casts,Urine None Seen Normal None Seen [facility] Comment on above: Order Comment: Name Collection Type:: Clean-Voided Midstream Performed By: #### C UU, UHCG, ADDONUAPLUS, URDS #### [address] RBC,Urine 10-19 High 0-4 [facility] Comment on above: Order Comment: Name Collection Type:: Clean-Voided Midstream Performed By: #### C UU, UHCG, ADDONUAPLUS, URDS #### [address] Specificy [place],Urine 1.027 Normal 1.001-1.030 [facility] Comment on above: Order Comment: Name Collection Type:: Clean-Voided Midstream Performed By: #### C UU, UHCG, ADDONUAPLUS, URDS #### [address] Squamous Epithelial Cell,Urine 3-4 High 0-2 [facility] Comment on above: Order Comment: Name Collection Type:: Clean-Voided Midstream Performed By: #### C UU, UHCG, ADDONUAPLUS, URDS #### [address] Urobilinogen,Urine Normal Normal Normal [facility] Comment on above: Order Comment: Name Collection Type:: Clean-Voided Midstream Performed By: #### C UU, UHCG, ADDONUAPLUS, URDS #### [address] WBC,Urine 10-19 High 0-4 [facility] Comment on above: Order Comment: Name Collection Type:: Clean-Voided Midstream Performed By: #### C UU, UHCG, ADDONUAPLUS, URDS #### [address] Yeast,Urine None Seen Normal None Seen [facility] Comment on above: Order Comment: Name Collection Type:: Clean-Voided Midstream Performed By: #### C UU, UHCG, ADDONUAPLUS, URDS #### [address] Drug Screen,Urineon 02-03-20 Amphetamine Screen,Urine Negative Normal Negative [facility] Comment on above: Performed By: #### C UU, UHCG, ADDONUAPLUS, URDS #### [address] Barbiturate Screen,Urine Negative Normal Negative [facility] Comment on above: Performed By: #### C UU, UHCG, ADDONUAPLUS, URDS #### [address] Benzodiazepines Screen,Urine Negative Normal Negative [facility] Comment on above: Performed By: #### C UU, UHCG, ADDONUAPLUS, URDS #### [address] Cannabinoid Screen,Urine Negative Normal Negative [facility] Comment on above: Result Comment: Thes e are unconfirmed results and should not be used for legal purposes. Drug Cut-Off Concentration: AMPH 1000 ng/mL PONCHO 200 ng/mL KRISTAN 200 ng/mL COCM 300 ng/mL OP 300 ng/mL PCP 25 ng/mL THC 20 ng/mL PERFORMED BY: [place] [address] PATHOLOGIST HEALTHCARE ECONOMICS CONSULTANT MOISES VELASCO M.D. Performed By: #### C UU, UHCG, ADDONUAPLUS, URDS #### [address] [place] [address] [place] Cocaine Screen,Urine Negative Normal Negative [facility] Comment on above: Performed By: #### C UU, UHCG, ADDONUAPLUS, URDS #### [facility] [address] Opiate Screen,Urine Negative Normal Negative [facility] Comment on above: Performed By: #### C UU, UHCG, ADDONUAPLUS, URDS #### [address] Phencyclidine Screen,Urine Negative Normal Negative [facility] Comment on above: Performed By: #### C UU, UHCG, ADDONUAPLUS, URDS #### [address] Erythrocyte distribution wid th [Ratio] by Automated countOrdered By: Matthew Leslie on 02-02-2023 Erythrocyte distribution width (RBC) [Ratio] 12.9 % Normal 11.9-15.3 [facility] Comment on above: Performed By: #### E TANYA, HEPATIC, TSH3 wRFLX, CBC, CMP, [id number] #### [address] Erythrocytes [#/volume] in B lood by Automated countOrdered By: Matthew Leslie on 02-02-2023 RBC (Bld) [#/Vol] 4.70 10*6/uL Normal 3.60-5.00 [facility] Comment on above: Performed By: #### E TANYA, HEPATIC, TSH3 wRFLX, CBC, CMP, [id number] #### [address] Ethanol [Mass/volume] in Ser um or PlasmaOrdered By: Matthew Leslie on 02-02-2023 Ethanol [Mass/Vol] mg/dL Normal [facility] Comment on above: Performed By: #### E TANYA, HEPATIC, TSH3 wRFLX, CBC, CMP, [id number] #### [address] Ethanol [Mass/Vol] TNP [facility] Comment on above: Test not performed Ethyl Alcohol Profileon Percent Ethanol Not performed Normal [facility] Comment on above: Result Comment: PERF ORMED BY: [place] [id number] PATHOLOGIST HEALTHCARE ECONOMICS CONSULTANT MOISES VELASCO M.D. Performed By: #### E TANYA, HEPATIC, TSH3 wRFLX, CBC, CMP, [id number] #### [facility] [address] [place] [address] [place] Glucose [Mass/volume] in Ser um or PlasmaOrdered By: Matthew Leslie on 02-02-2023 Glucose [Mass/Vol] 98 mg/dL Normal 70-100 [facility] Comment on above: ADA recommended refe rence rangeRandom Glucose Reference Range is dependent on time and content of last meal. Glucose of more than 200 mg/dL in a nonstressed, ambulatory subject supports the diagnosis of Diabetes Mellitus. Result Comment: [place] om Glucose Reference Range is dependent on time and content of last meal. Glucose of more than 200 mg/dL in a nonstressed, ambulatory subject supports the diagnosis of Diabetes Mellitus. ADA recommended reference range Performed By: #### C UU, UHCG, ADDONUAPLUS, URDS #### [facility] [address] [place] [address] [place] HCG ( test) IA.rapi d Ql (U)Ordered By: Matthew Leslie on 02-02-2023 HCG ( test) Ql (U) Negative [facility] HCG,Urineon 02-02-2023 Beta HCG ( test) Ql (U) Negative Normal [facility] Comment on above: Order Comment: Name Collection Type:: Clean-Voided Midstream Result Comment: PERF ORMED BY: [address] [id number] PATHOLOGIST HEALTHCARE ECONOMICS CONSULTANT MOISES VELASCO M.D. Performed By: #### C UU, UHCG, ADDONUAPLUS, URDS #### [facility] [address] [place] [address] [place] Hematocrit [Volume Fraction] of Blood by Automated countOrdered By: Matthew Leslie on 02-02-2023 Hematocrit (Bld) [Volume fraction] 41.1 % Normal 34.0-46.4 [facility] Comment on above: Performed By: #### E TANYA, HEPATIC, TSH3 wRFLX, CBC, CMP, [id number] #### [facility] [address] Hemoglobin [Mass/volume] in BloodOrdered By: Matthew Leslie on 02-02-2023 Hemoglobin (Bld) [Mass/Vol] 13.8 g/dL Normal 11.8-15.4 [facility] Comment on above: Performed By: #### E TANYA, HEPATIC, TSH3 wRFLX, CBC, CMP, [id number] #### [facility] [address] Hepatic Panelon 02-02-2023 Bilirubin,Indirect 0.5 mg/dL Normal [facility] Comment on above: Performed By: #### C UU, UHCG, ADDONUAPLUS, URDS #### [facility] [address] Bilirubin.indirect [Mass/Vol] 0.10 mg/dL Normal 0.03-0.18 [facility] Comment on above: Performed By: #### C UU, UHCG, ADDONUAPLUS, URDS #### [facility] [address] Ketones Auto test strip (U) [Mass/Vol]Ordered By: Matthew Leslie on 02-02-2023 Ketones (U) [Mass/Vol] 2+ Negative [facility] Leukocytes [#/volume] correc alberto for nucleated erythrocytes in Blood by Automated counOrdered By: Matthew Leslie on 02-02-2023 WBC corrected for nucl RBC Auto (Bld) [#/Vol] 7.6 10*3/uL 3.8-11.6 [facility] Leukocytes [#/volume] in Blo od by Automated countOrdered By: Matthew Leslie on 02-02-2023 WBC (Bld) [#/Vol] 7.6 10*3/uL Normal 3.8-11.6 [facility] Comment on above: Performed By: #### E TANYA, HEPATIC, TSH3 wRFLX, CBC, CMP, [id number] #### [facility] [address] Lymphocytes [#/volume] in Bl ood by Automated countOrdered By: Matthew Leslie on 02-02-2023 Lymphocytes (Bld) [#/Vol] 2.7 10*3/uL Normal 1.00-4.8 [facility] Comment on above: Performed By: #### E TANYA, HEPATIC, TSH3 wRFLX, CBC, CMP, [id number] #### [facility] [address] Lymphocytes/100 leukocytes i n Blood by Automated countOrdered By: Matthew Leslie on 02-02-2023 Lymphocytes/100 WBC (Bld) 36.0 % Normal . [facility] Comment on above: Performed By: #### E TANYA, HEPATIC, TSH3 wRFLX, CBC, CMP, [id number] #### [facility] [address] MCH [Entitic mass] by Automa alberto countOrdered By: Matthew Leslie on 02-02-2023 MCH (RBC) [Entitic mass] 29.4 pg Normal 24.7-34.3 [facility] Comment on above: Performed By: #### E TANYA, HEPATIC, TSH3 wRFLX, CBC, CMP, [id number] #### [facility] [address] MCHC Auto (RBC) [Mass/Vol]Or dered By: Matthew Leslie on 02-02-2023 MCHC (RBC) [Mass/Vol] 33.6 g/dL 32.0-35.0 [facility] MCV [Entitic volume] by Auto mated countOrdered By: Matthew Leslie on 02-02-2023 MCV (RBC) [Entitic vol] 87.6 fL Normal 80-100 [facility] Comment on above: Performed By: #### E TANYA, HEPATIC, TSH3 wRFLX, CBC, CMP, [id number] #### [facility] [address] Monocyte distribution width [Entitic volume] in Blood by AutomatedOrdered By: Matthew Leslie on 02-02-2023 Monocyte distribution width Auto (Bld) [Entitic vol] 17.83 % 0.00-20.00 [facility] Neutrophils [#/volume] in Bl ood by Automated countOrdered By: Matthew Leslie on 02-02-2023 Neutrophils (Bld) [#/Vol] 4.2 10*3/uL Normal 1.8-7.7 [facility] Comment on above: Performed By: #### E TANYA, HEPATIC, TSH3 wRFLX, CBC, CMP, [id number] #### [facility] [address] Nitrite Test strip Ql (U)Ord ered By: Matthew Leslie on 02-02-2023 Nitrite Ql (U) Negative Negative [facility] No Panel InformationOrdered By: Matthew Leslie on 02-02-2023 Estimated GFR (CKD-EPI) > 60.0 mL/Min [facility] Creatinine Clearance (Chem 76.05 [facility] Nucleated erythrocytes [Pres ence] in Blood by Automated countOrdered By: Matthew Leslie on 02-02-2023 Nucleated RBC Auto Ql (Bld) 0.0 /100{WBC} 0-0.5 [facility] Opiates [Presence] in Urine by Screen methodOrdered By: Matthew Leslie on 02-02-2023 Opiates Screen Ql (U) Negative Negative [facility] Phencyclidine Screen Ql (U)O rdered By: Matthew Leslie on 02-02-2023 Phencyclidine Ql (U) Negative Negative [facility] Platelet mean volume [Entiti c volume] in Blood by Automated countOrdered By: Matthew Leslie on 02-02-2023 Platelet mean volume (Bld) [Entitic vol] 9.2 fL Normal 6.3-10.7 [facility] Comment on above: Performed By: #### E TANYA, HEPATIC, TSH3 wRFLX, CBC, CMP, [id number] #### [facility] [address] Platelets [#/volume] in Bloo d by Automated countOrdered By: Matthew Leslie on 02-02-2023 Platelets (Bld) [#/Vol] 322 10*3/uL Normal 150-450 [facility] Comment on above: Performed By: #### E TANYA, HEPATIC, TSH3 wRFLX, CBC, CMP, [id number] #### [facility] [address] Potassium [Moles/volume] in Serum or PlasmaOrdered By: Matthew Leslie on 02-02-2023 Potassium [Moles/Vol] 3.8 mmol/L Normal 3.5-5.1 [facility] Comment on above: Performed By: #### C UU, UHCG, ADDONUAPLUS, URDS #### [facility] [address] [place] [address] Protein [Mass/volume] in Ser um or PlasmaOrdered By: Matthew Leslie on 02-02-2023 Protein [Mass/Vol] 7.8 g/dL Normal 6.4-8.9 [facility] Comment on above: Performed By: #### C UU, UHCG, ADDONUAPLUS, URDS #### [facility] [address] [place] [address] Serum globulin measurement b y calculation (mass/volume)Ordered By: Matthew Leslie on 02-02-2023 Globulin (S) [Mass/Vol] 3.2 g/dL Normal [facility] Comment on above: Performed By: #### C UU, UHCG, ADDONUAPLUS, URDS #### [facility] [address] Serum or plasma albumin/glob ulin mass ratioOrdered By: Matthew Leslie on 02-02-2023 Albumin/Globulin [Mass ratio] 1.4 {ratio} Normal [facility] Comment on above: Performed By: #### C UU, UHCG, ADDONUAPLUS, URDS #### [facility] [address] [place] [address] Serum or plasma anion gap de terminationOrdered By: Matthew Leslie on 02-02-2023 Anion gap [Moles/Vol] 9.5 mmol/L Normal 6.0-15.0 [facility] Comment on above: Performed By: #### C ASIM BARONE, BELIA ALCANTARA #### [facility] [address] Serum or plasma non-glucuron idated bilirubin measurement (mass/volume)Ordered By: Matthew Leslie on 02-02-2023 Bilirubin.indirect [Mass/Vol] 0.5 mg/dL [facility] Sodium [Moles/volume] in Ser um or PlasmaOrdered By: Matthew Leslie on 02-02-2023 Sodium [Moles/Vol] 141 mmol/L Normal 136-145 [facility] Comment on above: Performed By: #### C LIZABETH, ASIM, BELIA ALCANTARA #### [facility] [address] Specific gravity Auto test s trip (U) [Rel density]Ordered By: Matthew Leslie on 02-02-2023 Specific gravity (U) [Rel density] 1.027 1.001-1.030 [facility] Squamous epithelial cells de tection in urine sediment by light microscopyOrdered By: Matthew Leslie on 02-02-2023 Epithelial cells.squamous LM Ql (Urine sed) 3-4 [HPF] 0-2 [facility] Thyroid Stim Hormone w/Rflxo n 02-02-2023 Thyroid Stim Hormone w/Rflx 3.74 u[iU]/mL Normal 0.45-5.33 [facility] Comment on above: Performed By: #### C UU, JULIANECG, BELIA ALCANTARA #### [facility] [address] Thyrotropin [Units/volume] i n Serum or PlasmaOrdered By: Matthew Leslie on 02-02-2023 TSH Qn 3.74 m[IU]/L 0.45-5.33 [facility] Urea nitrogen [Mass/volume] in Serum or PlasmaOrdered By: Matthew Leslie on 02-02-2023 Urea nitrogen [Mass/Vol] 11 mg/dL Normal 7-25 [facility] Comment on above: Performed By: #### C UU, UHCG, ADDONUAPLUS, URDS #### [facility] [address] [place] [address] [place] Urine Cultureon 02-02-2023 Bacteria identified Cx Nom (U) No Growth 2 Days PERFORMED BY: [place] [address] PATHOLOGIST HEALTHCARE ECONOMICS CONSULTANT MOISES VELASCO M.D. Normal [facility] Comment on above: Performed By: #### C UU, UHCG, ADDONUAPLUS, URDS #### [facility] [address] Urine bacteria detection by automated methodOrdered By: Matthew Leslie on 02-02-2023 Bacteria Auto Ql (U) 1+ None Seen [facility] Urine clarity by refractomet ry automatedOrdered By: Matthew Leslie on 02-02-2023 Clarity Refractometry automated (U) Cloudy Clear [facility] Urine culture routineOrdered By: Matthew Leslie on 02-02-2023 Bacteria identified Cx Nom (U) No Growth 2 Days [facility] Urine glucose measurement by automated test strip (mass/volume)Ordered By: Matthew Leslie on 02-02-2023 Glucose Auto test strip (U) [Mass/Vol] Normal mg/dL Normal [facility] Urine hemoglobin detection b y automated test stripOrdered By: Matthew Leslie on 02-02-2023 Hemoglobin Auto test strip Ql (U) 3+ Negative [facility] Urine leukocyte esterase det ection by automated test stripOrdered By: Matthew Leslie on 02-02-2023 Leukocyte esterase Auto test strip Ql (U) 2+ Negative [facility] Urine pH measurement by auto mated test stripOrdered By: Matthew Leslie on 02-02-2023 pH (U) 6.0 [pH] Normal 5.0-9.0 [facility] Comment on above: Order Comment: Name Collection Type:: Clean-Voided Midstream Performed By: #### C UU, UHCG, ADDONUAPLUS, URDS #### [facility] [address] Urine protein measurement by automated test strip (mass/volume)Ordered By: Matthew Leslie on 02-02-2023 Protein (U) [Mass/Vol] 30 mg/dL High Negative [facility] Comment on above: Order Comment: Name Collection Type:: Clean-Voided Midstream Performed By: #### C UU, UHCG, ADDONUAPLUS, URDS #### [facility] [address] Urobilinogen Auto test strip (U) [Mass/Vol]Ordered By: Matthew Leslie on 02-02-2023 Urobilinogen (U) [Mass/Vol] Normal mg/dL Normal [facility] Vitamin D 25 Hydroxy Totalon 02-02-2023 Vitamin D 25 Hydroxy Total 54.2 ng/mL Normal 30-100 [facility] Comment on above: Result Comment: MABLE MIN D STATUS 25(OH)VITAMIN D RANGE (ng/mL) Deficient <20 Insufficient 20 to <30 Sufficient 30 to 100 Reference: Nimisha Benson, Luisa MCCRACKEN, et al. Evaluation,treatment, and prevention of vitamin D deficiency; an Endocrine Society clinical practice guideline. JCEM. 2010; 96(7):1911-30. PERFORMED BY: [place] [address] PATHOLOGIST HEALTHCARE ECONOMICS CONSULTANT MOISES VELASCO M.D. Performed By: #### C UU, UHCG, ADDONUAPLUS, URDS #### [place] [id number] [facility] Vitamin D+Metabolites [Mass/ volume] in Serum or PlasmaOrdered By: Matthew Leslie on 02-02-2023 Vitamin D+Metabolites [Mass/Vol] 54.2 ng/mL 30-100 [facility] Comment on above: VITAMIN D STATUS [...] sed) None seen [HPF] None Se en [facility] AMNISUREon 09-16-2022 AMNISURE Positive Abnormal NEGATIVE [facility] Comment on above: Performed By: #### A MNI #### [facility] [address] [address] [address] Adrianna Caldera CBC AUTO DIFFon 09-16-2022 BASO # 0.1 103/ul Normal 0.0-0.1 [facility] Comment on above: Performed By: #### C BC #### [facility] [address] [place] [address] Dr. Adrianna Caldera Basophils/100 WBC (Bld) 0.4 % Normal 0.2-2.0 [facility] Comment on above: Performed By: #### C BC #### [facility] [address] [place] [address] Dr. Adrainna Caldera EO # 0.0 103/ul Normal 0.0-0.7 [facility] Comment on above: Performed By: #### C BC #### [facility] [address] [place] [address] Dr. Adrianna Caldera Eosinophils/100 WBC (Bld) 0.1 % Critically low 0.9-7.0 [facility] Comment on above: Performed By: #### C BC #### [facility] [address] [place] [address] Dr. Adrianna Caldera Erythrocyte distribution width (RBC) [Ratio] 12.3 % Normal 11.0-15.0 [facility] Comment on above: Performed By: #### C BC #### [facility] [address] [place] [address] Dr. Adrianna Caldera Hematocrit (Bld) [Volume fraction] 38.3 % Normal 36.0-48.0 [facility] Comment on above: Performed By: #### C BC #### [facility] [address] [place] [address] Dr. Adrianna Caldera Hemoglobin (Bld) [Mass/Vol] 12.8 g/dL Normal 12.0-16.0 [facility] Comment on above: Performed By: #### C BC #### [facility] [address] [place] [address] [address] Adrianna Cladera IG # 0.20 10e3/ul Critically high 0.00-0.03 [facility] Comment on above: Performed By: #### C BC #### [facility] [address] [address] [address] Adrianna Caldera IG % 1.0 % Critically high 0.0-0.5 [facility] Comment on above: Performed By: #### C BC #### [facility] [address] [place] [address] [address] Adrianna Caldera LYMPH # 1.5 103/ul Normal 1.2-3.8 [facility] Comment on above: Performed By: #### C BC #### [facility] [address] [place] [address] Dr. Adrianna Caldera Lymphocytes/100 WBC (Bld) 7.7 % Critically low 20.5-60.0 [facility] Comment on above: Performed By: #### C BC #### [facility] [address] [place] [address] Dr. Adrianna Caldera MANUAL DIFF REQ NO Normal [facility] Comment on above: Performed By: #### C BC #### [facility] [address] [place] [address] Dr. Adrianna Caldera MCH (RBC) [Entitic mass] 28.9 pg Normal 26.7-34.0 [facility] Comment on above: Performed By: #### C BC #### [facility] [address] [place] [address] Dr. Adrianna Caldera MCHC (RBC) [Mass/Vol] 33.4 g/dL Normal 29.9-35.2 [facility] Comment on above: Performed By: #### C BC #### [facility] [address] [place] [address] [address] Adrianna Caldera MCV (RBC) [Entitic vol] 86.5 fL Normal 81.0-99.0 [facility] Comment on above: Performed By: #### C BC #### [facility] [address] [place] [address] Dr. Adrianna Caldera MONO # 0.3 103/ul Normal 0.3-0.8 [facility] Comment on above: Performed By: #### C BC #### [facility] [address] [place] [address] Dr. Adrianna Caldera Monocytes/100 WBC (Bld) 1.7 % Normal 1.7-12.0 [facility] Comment on above: Performed By: #### C BC #### [facility] [address] [place] [address] Dr. Adrianna Caldera NEUT # 17.5 103/ul Critically high 1.4-6.5 [facility] Comment on above: Performed By: #### C BC #### [facility] [address] [place] [address] Dr. Adrianna Caldera Neutrophils/100 WBC (Bld) 89.1 % Critically high 43.0-75.0 [facility] Comment on above: Performed By: #### C BC #### [facility] [address] [place] [address] Dr. Adrianna Caldera Platelet mean volume (Bld) [Entitic vol] 10.7 fL Normal 9.5-13.5 [facility] Comment on above: Performed By: #### C BC #### [facility] [address] [place] [address] Dr. Adrianna Caldera PLT 356 103/ul Normal 150-450 [facility] Comment on above: Performed By: #### C BC #### [facility] [address] [place] [address] Dr. Adrianna Caldera RBC 4.43 106/ul Normal 4.20-5.40 [facility] Comment on above: Performed By: #### C BC #### [facility] [address] [place] [address] Dr. Adrianna Caldera WBC 19.6 103/ul Critically high 4.0-11.0 [facility] Comment on above: Performed By: #### C BC #### [facility] [address] [place] [address] Dr. Adrianna Caldera UA (CLEAN/CATCH) SALVAGE MACHINE OPERATOR/MICRO I F IND.on 09-16-2022 Bilirubin Ql (U) Negative Normal NEGATIVE [facility] Comment on above: Performed By: #### U ACSIND #### [facility] [address] [place] [address] Dr. Adrianna Caldera Clarity (U) CLEAR Normal CLEAR [facility] Comment on above: Performed By: #### U ACSIND #### [facility] [address] [place] [address] Dr. Adrianna Caldera Color (U) LT. YELLOW Normal YELLOW [facility] Comment on above: Performed By: #### U ACSIND #### [facility] [address] [place] [address] Dr. Adrianna Caldera Glucose Ql (U) Negative Normal NEGATIVE [facility] Comment on above: Performed By: #### U ACSIND #### [facility] [address] [place] [address] Dr. Adrianna Caldera Hemoglobin Ql (U) Negative Normal NEGATIVE [facility] Comment on above: Performed By: #### U ACSIND #### [facility] [address] [place] [address] Dr. Adrianna Caldera Ketones Ql (U) Negative Normal NEGATIVE [facility] Comment on above: Performed By: #### U ACSIND #### [facility] [address] [place] [address] Dr. Adrianna Caldera LEUKOCYTES Negative Normal NEGATIVE [facility] Comment on above: Performed By: #### U ACSIND #### [facility] [address] [place] [address] Dr. Adrianna Caldera Nitrite Ql (U) Negative Normal NEGATIVE [facility] Comment on above: Performed By: #### U ACSIND #### [facility] [address] [place] [address] Dr. dArianna Caldera pH (U) 5.5 [pH] Normal 5-9 [facility] Comment on above: Performed By: #### U ACSIND #### [facility] [address] [place] [id number] Dr. Adrianna Caldera SPEC GRAVITY 1.010 Normal 1.005-<=1.0 25 [facility] Comment on above: Performed By: #### U ACSIND #### [facility] [address] [place] [address] Dr. Adrianna Caldera UA PROTEIN Negative Normal NEGATIVE/ TRACE [facility] Comment on above: Performed By: #### U ACSIND #### [facility] [address] [place] [address] Dr. Adrianna Caldera UR MICRO IND NOT INDICATED Normal The [facility] Comment on above: Performed By: #### U ACSIND #### [facility] [address] [place] [address] Dr. Adrianna Caldera Urobilinogen Qn (U) 0.2 {Micheal'U}/dL Normal 0.2 - 1. 0 [facility] Comment on above: Performed By: #### U ACSIND #### [facility] [address] [place] [address] Dr. Adrianna Caldera US PREG GROWTHon 09-16-2022 [...] 15:19 Normal [facility] UA (CLEAN/CATCH) SALVAGE MACHINE OPERATOR/MICRO I F IND.on 09-04-2022 Bilirubin Ql (U) Negative Normal NEGATIVE The [facility] Comment on above: Performed By: #### U ACSIND ####[facility] [address] [place], [place] [address]Dr. Adrianna Caldera Clarity (U) CLEAR Normal CLEAR [facility] Comment on above: Performed By: #### U ACSIND ####[facility] [address] [place], [place] [address]Dr. Adrianna Caldera Color (U) LT. YELLOW Normal YELLOW [facility] Comment on above: Performed By: #### U ACSIND ####[facility] [address] [place], [place] [address]Dr. Adrianna Caldera Glucose Ql (U) Negative Normal NEGATIVE The [facility] Comment on above: Performed By: #### U ACSIND ####[facility] [address] [place], [place] [address]Dr. Jemimabenito Caldera Hemoglobin Ql (U) Negative Normal NEGATIVE The [facility] Comment on above: Performed By: #### U ACSIND ####[facility] [address] [place], [place] [address]Dr. Jemimabenito Caldera Ketones Ql (U) Negative Normal NEGATIVE [facility] Comment on above: Performed By: #### U ACSIND ####[facility] [address] [place], [place] [address]Dr. Adrianna Caldera LEUKOCYTES Negative Normal NEGATIVE [facility] Comment on above: Performed By: #### U ACSIND ####[facility] [address] [place], [place] [address]Dr. Adrianna Caldera Nitrite Ql (U) Negative Normal NEGATIVE [facility] Comment on above: Performed By: #### U ACSIND ####[facility] [address] [place], [place] [address]Dr. Jemimabenito Caldera pH (U) 7.5 [pH] Normal 5-9 [facility] Comment on above: Performed By: #### U ACSIND ####[facility] Lat[address] [place], [place] [address]Dr. Adrianna Caldera SPEC GRAVITY 1.010 Normal 1.005-<=1.0 25 [facility] Comment on above: Performed By: #### U ACSIND ####[facility] [address] [place] [address]Dr. Adrianna Werner UA PROTEIN Negative Normal NEGATIVE/ TRACE [facility] Comment on above: Performed By: #### U ACSIND ####[facility] [address] [place] [address]Dr. Adrianna Caldera UR MICRO IND NOT INDICATED Normal The [facility] Comment on above: Performed By: #### U ACSIND ####[facility] [address] [place] [address]Dr. Jemimabenito Caldera Urobilinogen Qn (U) 0.2 {Micheal'U}/dL Normal 0.2 - 1. 0 [facility] Comment on above: Performed By: #### U ACSIND ####[facility] [address] [place] [address]Dr. Adrianna Caldera GTT 3 HR PREGon 08-30-2022 Glucose [Mass/Vol] 88 mg/dL Normal 74-106 [facility] Comment on above: Performed By: #### G TT3P ####[facility] [address] [place], [place] [address]Dr. Adrianna Caldera Glucose [Mass/Vol] 167 mg/dL Normal The [facility] Comment on above: Performed By: #### G TT3P ####[facility] W[address] [place], [place] [address]Dr. Adrianna Caldera Glucose [Mass/Vol] 136 mg/dL Normal [facility] Comment on above: Performed By: #### G TT3P ####[facility] [address] [place], [place] [address]Dr. Adrianna Caldera Glucose [Mass/Vol] 144 mg/dL Normal [facility] Comment on above: Performed By: #### G TT3P ####[facility] [address] [place], [place] [address]Dr. Adrianna Caldera US PREG PLACENTAon US PREG [...] 15:46 Normal [facility] UA (CLEAN/CATCH) SALVAGE MACHINE OPERATOR/MICRO I F IND.on 07-21-2022 Bilirubin Ql (U) Negative Normal NEGATIVE The [facility] Comment on above: Performed By: #### U ACSIND ####[facility] [address] [place], [place] [address]Dr. Adrianna Caldera Clarity (U) CLEAR Normal CLEAR [facility] Comment on above: Performed By: #### U ACSIND ####[facility] [address] [place], [place] [address]Dr. Yilan Caldera Color (U) LT. YELLOW Normal YELLOW [facility] Comment on above: Performed By: #### U ACSIND ####[facility] [address] [place], [place] [address]Dr. Yibenito Caldera Glucose Ql (U) Negative Normal NEGATIVE The [facility] Comment on above: Performed By: #### U ACSIND ####[facility] [address] [place], [place] [address]Dr. Yilan Caldera Hemoglobin Ql (U) Negative Normal NEGATIVE The [facility] Comment on above: Performed By: #### U ACSIND ####[facility] [address] [place], [place] [address]Dr. Yilan Caldera Ketones Ql (U) Negative Normal NEGATIVE [facility] Comment on above: Performed By: #### U ACSIND ####[facility] [address] [place], [place] [address]Dr. Yilan Caldera LEUKOCYTES Negative Normal NEGATIVE [facility] Comment on above: Performed By: #### U ACSIND ####[facility] [address] [place], [place] [address]Dr. Yilan Caldera Nitrite Ql (U) Negative Normal NEGATIVE The [facility] Comment on above: Performed By: #### U ACSIND ####[facility] [address] [place] [id number]. Adrianna Caldera pH (U) 7.0 [pH] Normal 5-9 [facility] Comment on above: Performed By: #### U ACSIND ####[facility] [address] [place] [id number]. Adrianna Caldera SPEC GRAVITY 1.010 Normal 1.005-<=1.0 25 [facility] Comment on above: Performed By: #### U ACSIND ####[facility] [address] [place] [address]Dr. Adrianna Caldera UA PROTEIN Negative Normal NEGATIVE/ TRACE [facility] Comment on above: Performed By: #### U ACSIND ####[facility] [address] [place] [address]Dr. Adrianna Caldera UR MICRO IND NOT INDICATED Normal The [facility] Comment on above: Performed By: #### U ACSIND ####[facility] [address] [place] [address]Dr. Adrianna Caldera Urobilinogen Qn (U) 0.2 {Micheal'U}/dL Normal 0.2 - 1. 0 [facility] Comment on above: Performed By: #### U ACSIND ####[facility] [address] [place] [address]Dr. Adrianna Caldera US PREG ANATOMY SINGLEon US [...] Age by EDC: 20 weeks 0 days MANEUL by EDC: 12/07/2022 Age by current US: 20 weeks 4 days MANUEL by current US: 12/03/2022 IMPRESSION: 1. Single live intrauterine with growth detailed above. 2. Low-lying posterior placenta. Electronically authenticated by: KAROL SIDDIQUI Date: 2022-07-21 16:41 Normal [facility] PAP ACOG PANEL 2: 21 to 29on 07-12-2022 . . Normal [facility] Comment on above: Performed By: #### [id number] ####[facility] [address] [place] [address]Dr. Adrianna Caldera Age Gdln ACOG Testing 23- Normal [facility] Comment on above: Performed By: #### 4 [id number] ####[facility] [address] [place], [place] [address]Dr. Adrianna Caldera DIAGNOSIS: Comment Normal [facility] Comment on above: Result Comment: NEGA TIVE FOR INTRAEPITHELIAL LESION OR MALIGNANCY. Performed By: #### 4 [id number] ####[facility] [address] [place], [place] [address]Dr. Adrianna Caldera Methodology: Comment Normal [facility] Comment on above: Result Comment: This liquid based ThinPrep(R) pap test was screened with the use of an image guided system. Performed By: #### 4 [id number] ####[facility] [address] [place], [place] [address]Dr. Adrianna Caldera Note: Comment Normal [facility] Comment on above: Result Comment: The Pap smear is a screening test designed to aid in the detection of premalignant and malignant conditions of the uterine cervix. It is not a diagnostic procedure and should not be used as the sole means of detecting cervical cancer. Both false-positive and false-negative reports do occur. . Performed By: #### 4 [id number] ####[facility] [address] [place] [address]Dr. Adrianna Caldera Performed by: Comment Normal [facility] Comment on above: Result Comment: [place] Yin, Group President (ASCP) Performed By: #### 4 [id number] ####[facility] [address] [place] [address]Dr. Adrianna Caldera Reflex Criteria: Comment Normal [facility] Comment on above: Result Comment: The HPV DNA reflex criteria were not met with this specimen result therefore, no HPV testing was performed. . Performed By: #### 4 [id number] ####[facility] [address] [place], [place] [address]Dr. Adrianna Caldera Specimen adequacy: Comment Normal [facility] Comment on above: Result Comment: Sati sfactory for evaluation. No endocervical component is identified. Performed By: #### 4 [id number] ####[facility] [address] [place] [address]Dr. Adrianna Caldera CHLAMYDIA/GONOCOCCUS ALEKSANDER (SW AB/URINE/PAPon 07-07-2022 Chlamydia trachomatis, ALEKSANDER Negative Normal Negative [facility] Comment on above: Performed By: #### C T/NGNA ####[facility] [address] [place], [place] [address]Dr. Adrianna Caldera Neisseria gonorrhoeae, ALEKSANDER Negative Normal Negative [facility] Comment on above: Performed By: #### C T/NGNA ####[facility] [address] [place] [address]Dr. Adrianna Caldera VAGINITIS/VAGINOSIS DNA PROB Scott 07-07-2022 Sherley species Negative Normal Negative [facility] Comment on above: Performed By: #### U ACSIND #### [facility] [address] [address] [address] Adrianna Caldera Gardnerella vaginalis Negative Normal Negative [facility] Comment on above: Performed By: #### U ACSIND #### [facility] [address] [address] [address] Adrianna Caldera Trichomonas vaginalis Negative Normal Negative [facility] Comment on above: Performed By: #### U ACSIND #### [facility] [id number] Adrianna Caldera ABO/RHon 06-30-2022 ABO/Rh Negative [facility] CBC with Auto Differentialon 06-30-2022 Absolute Eos # 0.06 [place] [facility] Absolute Immature Granulocyte 0.07 [facility] Absolute Lymph # 2.91 [facility] Absolute [place] # 0.66 [facility] RS [facility] Basophils (Bld) [#/Vol] 0.04 10*3/uL [facility] Basophils/100 WBC (Bld) 0 % 0 - 2 % B ON [facility] Eosinophils/100 WBC (Bld) 1 % 1 - 4 % [facility] Hematocrit (Bld) [Volume fraction] 35.2 % Low 36.3 - 47.1 % [facility] Hemoglobin (Bld) [Mass/Vol] 11.9 g/dL 11.9 - 15.1 g/dL [facility] Immature granulocytes/100 WBC (Bld) 1 % High 0 [facility] Interpretation and review of laboratory results Abnormal [facility] Lymphocytes/100 WBC (Bld) 24 % 24 - 43 % [facility] MCH (RBC) [Entitic mass] 30.7 pg 25.2 - 33.5 pg [facility] MCHC (RBC) [Mass/Vol] 33.8 g/dL 28.4 - 34.8 g/dL [facility] MCV (RBC) [Entitic vol] 91.0 fL 82.6 - 102.9 fL [facility] Monocytes/100 WBC (Bld) 5 % 3 - 12 % B ON [facility] NRBC Automated 0.0 0.0 per 100 WBC [facility] Platelet distribution width (Bld) [Ratio] 12.2 % 11.8 - 14.4 % [facility] Platelet mean volume (Bld) [Entitic vol] 10.5 fL 8.1 - 13.5 fL [facility] Platelets (Bld) [#/Vol] 301 10*3/uL [facility] RBC (Bld) [#/Vol] 3.87 10*6/uL Low 3.95 - 5.1 1 m/uL [facility] Segmented neutrophils/100 WBC (Bld) 69 % High 36 - 65 % [facility] Segs Absolute 8.40 High [facility] WBC (Bld) [#/Vol] 12.1 10*3/uL High [facility] CMPon 06-30-2022 Albumin [Mass/Vol] 3.6 g/dL 3.5 - 5.2 g/dL [facility] Albumin/Globulin [Mass ratio] 1.1 {ratio} 1.0 - 2.5 [facility] ALP [Catalytic activity/Vol] 74 U/L 35 - 104 U/L [facility] ALT [Catalytic activity/Vol] 9 U/L 5 - 33 U/L [facility] Anion gap [Moles/Vol] 13 mmol/L 9 - 17 mmol/L [facility] AST [Catalytic activity/Vol] 18 U/L NINF - 32 U/L [facility] Bilirubin [Mass/Vol] mg/dL Low 0.3 - 1 .2 mg/dL [facility] Calcium [Mass/Vol] 9.5 mg/dL 8.6 - 10. 4 mg/dL [facility] Chloride [Moles/Vol] 101 mmol/L 98 - 10 7 mmol/L [facility] CO2 [Moles/Vol] 21 mmol/L 20 - 31 mmol/L [facility] Creatinine [Mass/Vol] 0.55 mg/dL 0.50 - 0.90 mg/dL [facility] GFR/1.73 sq M.predicted MDRD (S/P/Bld) [Vol rate/Area] - PINF [facility] Comment on above: These results are not intended for use in patients <18 years of age. eGFR results are calculated without a race factor using the 2021 CKD-EPI equation. Careful clinical correlation is recommended, particularly when comparing to results calculated using previous equations. The CKD-EPI equation is less accurate in patients with extremes of muscle mass, extra-renal metabolism of creatine, excessive creatine ingestion, or following therapy that affects renal tubular secretion. Glucose [Mass/Vol] 84 mg/dL 70 - 99 mg/dL [facility] Interpretation and review of laboratory results Abnormal [facility] Potassium [Moles/Vol] 3.8 mmol/L 3.7 - 5.3 mmol/L [facility] Protein [Mass/Vol] 6.9 g/dL 6.4 - 8.3 g/dL [facility] Sodium [Moles/Vol] 135 mmol/L 135 - 144 mmol/L [facility] Urea nitrogen [Mass/Vol] 8 mg/dL 6 - 20 mg/dL [facility] Urea nitrogen/Creatinine (Bld) [Mass ratio] 15 9 - 20 [facility] Lipaseon 06-30-2022 Lipase [Catalytic activity/Vol] 30 U/L 13 - 60 U/L [facility] Microscopic Urinalysison Bacteria, UA 2+ Abnormal None [facility] Epithelial Cells UA 0 TO 2 [facility] Interpretation and review of laboratory results Abnormal [facility] Mucus, UA 3+ Abnormal None [facility] RBC clumps Auto (Urine sed) [#/Area] 0 TO 2 [facility] WBC, UA 0 TO 2 [facility] Protime-INRon 06-30-2022 INR Coag (PPP) [Relative time] 1.0 {INR} [facility] Comment on above: Therapeutic Range: Moderate Anticoagulant Intensity: INR = 2.0-3.0 High Anticoagulant Intensity: INR = 2.5-3.5 PT Coag (PPP) [Time] 13.3 s [facility] Urinalysis with Reflex to Cu ltureon 06-30-2022 Bilirubin Urine Negative NEGATIVE [facility] Color, UA Yellow Yellow [facility] Glucose Auto test strip (U) [Mass/Vol] Negative NEGATIVE [facility] Interpretation and review of laboratory results Abnormal [facility] Ketones (U) [Mass/Vol] Negative NEGATIVE [facility] Leukocyte esterase Auto test strip Ql (U) Negative NEGATIVE [facility] Nitrite Auto test strip Ql (U) Negative NEGATIVE [facility] Protein (U) [Mass/Vol] 6.0 mg/dL 5.0 - 9.0 [facility] Protein (U) [Mass/Vol] Negative NEGATIVE [facility] Specific [place], UA 1.025 High 1.010 - 1.020 [facility] Turbidity UA Clear Clear [facility] Urine Hgb Negative NEGATIVE [facility] Urobilinogen, Urine Normal Normal [facility] No Panel Informationon 06-17 Body mass index (BMI) [Percentile] Per age and sex 0.1 {percentile} Invalid Interpretation Code [employer] [id number] Per age and sex 0.1 {percentile} Invalid Interpretation Code [employer] HEP B SURFACE ANTIGEN SCREEN on 06-08-2022 HBsAg Screen Negative Normal Negative [facility] Comment on above: Performed By: #### U ACSIND #### [facility] [address] [address] [address] Adrianna Caldera HEPATITIS C VIRUS AB W/ REFL EX QUANTon 06-08-2022 HCV AB <0.1 Normal 0.0-0.9 [facility] Comment on above: Performed By: #### U ACSIND #### [facility] [address] [address] [address] Adrianna Caldera Interpretation: Comment Normal [facility] Comment on above: Result Comment: Nega tive Not infected with HCV, unless recent infection is suspected or other evidence exists to indicate HCV infection. Performed By: #### U ACSIND #### [facility] [address] [address] [address] Adrianna Caldera HIV 1 AND 2 WITH REFLEXon HIV Screen 4th Generation wRfx Non-Reactive Normal Non Reactive [facility] Comment on above: Result Comment: HIV Negative HIV-1/HIV-2 antibodies and HIV-1 p24 antigen were NOT detected. There is no laboratory evidence of HIV infection. Performed By: #### U ACSIND #### [facility] [address] [place] [address] Dr. Adrianna Caldera RPR QUANTon 06-08-2022 Rapid Plasma Reagin, Quant Non-Reactive Normal NonRea<1:1 [facility] Comment on above: Result Comment: Plea se Note: This test does not meet current guidelines for screening and diagnosis of syphilis. This test is intended for following treatment response in patients being treated for syphilis infection. To screen for syphilis infection, a reflex cascade that includes both RPR and a treponema-specific assay should be utilized, such as Treponema pallidum (Syphilis) Screening [place] (170246) or Rapid Plasma Reagin (RPR) Test With Reflex to Quantitative RPR and Confirmatory Treponema pallidum Antibodies (830019). Performed By: #### U ACSIND #### [facility] [address] [place] [address] Dr. Adrianna Caldera RUBELLA AB IGGon 06-08-2022 Rubella Antibodies, IgG 4.69 index Normal Immu ne >0.99 [facility] Comment on above: Result Comment: Non- immune <0.90 Equivocal 0.90 - 0.99 Immune >0.99 Performed By: #### R UBIGG ####[facility] [address] [place] [address]Dr. Adrianna Caldera CBC AUTO DIFFon 06-05-2022 BASO # 0.0 103/ul Normal 0.0-0.1 [facility] Comment on above: Performed By: #### C BC #### [facility] [address] [place] [address] Dr. Adrianna Caldera Basophils/100 WBC (Bld) 0.3 % Normal 0.2-2.0 [facility] Comment on above: Performed By: #### C BC #### [facility] [address] [place] [address] Dr. Adrianna Caldera EO # 0.1 103/ul Normal 0.0-0.7 [facility] Comment on above: Performed By: #### C BC #### [facility] [address] [place] [address] Dr. Adrianna Caldera Eosinophils/100 WBC (Bld) 0.6 % Critically low 0.9-7.0 [facility] Comment on above: Performed By: #### C BC #### [facility] [address] [place] [address] Dr. Adrianna Caldera Erythrocyte distribution width (RBC) [Ratio] 11.7 % Normal 11.0-15.0 [facility] Comment on above: Performed By: #### C BC #### [facility] [address] [place] [address] Dr. Adrianna Caldera Hematocrit (Bld) [Volume fraction] 33.8 % Critically low 36.0-48.0 [facility] Comment on above: Performed By: #### C BC #### [facility] [address] [place] [address] Dr. Adrianna Caldera Hemoglobin (Bld) [Mass/Vol] 12.6 g/dL Normal 12.0-16.0 [facility] Comment on above: Performed By: #### C BC #### [facility] [address] [place] [address] Dr. Adrianna Caldera IG # 0.05 10e3/ul Critically high 0.00-0.03 [facility] Comment on above: Performed By: #### C BC #### [facility] [address] [place] [address] Dr. Adrianna Caldera IG % 0.4 % Normal 0.0-0.5 [facility] Comment on above: Performed By: #### C BC #### [facility] [address] [place] [address] Dr. Adrianna Caldera LYMPH # 2.4 103/ul Normal 1.2-3.8 [facility] Comment on above: Performed By: #### C BC #### [facility] [address] [place] [address] Dr. Adrianna Caldera Lymphocytes/100 WBC (Bld) 21.1 % Normal 20.5-60.0 [facility] Comment on above: Performed By: #### C BC #### [facility] [address] [place] [address] Dr. Adrianna Caldera MANUAL DIFF REQ NO Normal [facility] Comment on above: Performed By: #### C BC #### [facility] [address] [place] [address] Dr. Adrianna Caldera MCH (RBC) [Entitic mass] 30.3 pg Normal 26.7-34.0 [facility] Comment on above: Performed By: #### C BC #### [facility] [address] [place] [address] Dr. Adrianna Caldera MCHC (RBC) [Mass/Vol] 37.3 g/dL Critically high 29.9-35.2 [facility] Comment on above: Performed By: #### C BC #### [facility] [address] [place] [address] Dr. Adrianna Caldera MCV (RBC) [Entitic vol] 81.3 fL Normal 81.0-99.0 [facility] Comment on above: Performed By: #### C BC #### [facility] [address] [place] [address] Dr. Adrianna Caldera MONO # 0.6 103/ul Normal 0.3-0.8 [facility] Comment on above: Performed By: #### C BC #### [facility] [address] [place] [address] Dr. Adrianna Caldera Monocytes/100 WBC (Bld) 5.4 % Normal 1.7-12.0 [facility] Comment on above: Performed By: #### C BC #### [facility] [address] [place] [address] Dr. Adrianna Caldera NEUT # 8.3 103/ul Critically high 1.4-6.5 [facility] Comment on above: Performed By: #### C BC #### [facility] [address] [place] [address] Dr. Adrianna Caldera Neutrophils/100 WBC (Bld) 72.2 % Normal 43.0-75.0 [facility] Comment on above: Performed By: #### C BC #### [facility] [address] [address] [address] Adrianna Caldera Platelet mean volume (Bld) [Entitic vol] 10.6 fL Normal 9.5-13.5 [facility] Comment on above: Performed By: #### C BC #### [facility] [address] [address] [address] Adrianna Caldera PLT 253 103/ul Normal 150-450 [facility] Comment on above: Performed By: #### C BC #### [facility] [address] [address] [address] Adrianna Caldera RBC 4.16 106/ul Critically low 4.20-5.40 [facility] Comment on above: Performed By: #### C BC #### [facility] [address] [address] [address] Adrianna Caldera WBC 11.6 103/ul Critically high 4.0-11.0 [facility] Comment on above: Performed By: #### C BC #### [facility] [address] [address] [address] Adrianna Caldera CULTURE URINEon 06-05-2022 CULTURE URINE Culture Observations: LIGHT GROWTH OF MIXED GENITAL JIGAR. NO POTENTIAL PATHOGENS SEEN. Normal [facility] Comment on above: Performed By: #### U RCX ####[facility] [address] [address]Dr. Adrianna Caldera GLYCOHEMOGLOBIN A1Con 2022 ADA RECOMMENDATION SEE BELOW Normal [facility] Comment on above: Result Comment: ADA RECOMMENDED LIMIT 4.0 - 6.0 ADA THERAPEUTIC TARGET < 7.0 ACTION SUGGESTED > 7.0 Performed By: #### P REGQNT #### [facility] [address] [address] [address] Adrianna Caldera Glucose [Mass/Vol] 105 mg/dL Normal [facility] Comment on above: Performed By: #### P REGQNT #### [facility] [address] [address] [address] Adrianna Caldera HbA1c (Bld) [Mass fraction] 5.3 % Normal 4.5-6.2 [facility] Comment on above: Performed By: #### P REGQNT #### [facility] [address] [place], [place] [address] Dr. Adrianna Caldera TYPE AND SCREENon 06-05-2022 TYPE AND SCREEN Negative Normal [facility] Comment on above: Performed By: #### T NS ####[facility] [address] [place], [place] [address]MjDr. Adrianna Caldera US PREG <14 WKSon 05-27-2022 [...] U ACSIND #### [facility] [address] [address] [address] Adrianna Caldera Basophils/100 WBC (Bld) 0.5 % Normal 0.2-2.0 [facility] Comment on above: Performed By: #### U ACSIND #### [facility] [address] [address] [address] Adrianna Caldera EO # 0.1 103/ul Normal 0.0-0.7 [facility] Comment on above: Performed By: #### U ACSIND #### [facility] [address] [address] [address] Adrianna Caldera Eosinophils/100 WBC (Bld) 0.5 % Critically low 0.9-7.0 [facility] Comment on above: Performed By: #### U ACSIND #### [facility] [address] [place] [address] Dr. Adrianna Caldera Erythrocyte distribution width (RBC) [Ratio] 11.9 % Normal 11.0-15.0 [facility] Comment on above: Performed By: #### U ACSIND #### [facility] [address] [place] [address] Dr. Adrianna Caldera Hematocrit (Bld) [Volume fraction] 37.5 % Normal 36.0-48.0 [facility] Comment on above: Performed By: #### U ACSIND #### [facility] [address] [place] [address] Dr. Adrianna Caldera Hemoglobin (Bld) [Mass/Vol] 12.8 g/dL Normal 12.0-16.0 [facility] Comment on above: Performed By: #### U ACSIND #### [facility] [address] [place] [address] Dr. Adrianna Caldera IG # 0.04 10e3/ul Critically high 0.00-0.03 [facility] Comment on above: Performed By: #### U ACSIND #### [facility] [address] [place] [address] Dr. Adrianna Caldera IG % 0.4 % Normal 0.0-0.5 [facility] Comment on above: Performed By: #### U ACSIND #### [facility] [address] [address] [address] Adrianna Caldera LYMPH # 3.0 103/ul Normal 1.2-3.8 [facility] Comment on above: Performed By: #### U ACSIND #### [facility] [address] [address] [address] Adrianna Caldera Lymphocytes/100 WBC (Bld) 27.0 % Normal 20.5-60.0 [facility] Comment on above: Performed By: #### U ACSIND #### [facility] [address] [place] [address] Dr. Adrianna Caldera MANUAL DIFF REQ NO Normal [facility] Comment on above: Performed By: #### U ACSIND #### [facility] [address] [place] [address] Dr. Adrianna Caldera MCH (RBC) [Entitic mass] 29.8 pg Normal 26.7-34.0 [facility] Comment on above: Performed By: #### U ACSIND #### [facility] [address] [place] [address] Dr. Adrianna Caldera MCHC (RBC) [Mass/Vol] 34.1 g/dL Normal 29.9-35.2 [facility] Comment on above: Performed By: #### U ACSIND #### [facility] [address] [place] [address] Dr. Adrianna Caldera MCV (RBC) [Entitic vol] 87.4 fL Normal 81.0-99.0 [facility] Comment on above: Performed By: #### U ACSIND #### [facility] [address] [address] [address] Adrianna Caldera MONO # 0.7 103/ul Normal 0.3-0.8 [facility] Comment on above: Performed By: #### U ACSIND #### [facility] [address] [address] [address] Adrianna Caldera Monocytes/100 WBC (Bld) 6.3 % Normal 1.7-12.0 [facility] Comment on above: Performed By: #### U ACSIND #### [facility] [address] [address] [address] Adrianna Caldera NEUT # 7.2 103/ul Critically high 1.4-6.5 [facility] Comment on above: Performed By: #### U ACSIND #### [facility] [address] [address] [address] Adrianna Caldera Neutrophils/100 WBC (Bld) 65.3 % Normal 43.0-75.0 [facility] Comment on above: Performed By: #### U ACSIND #### [facility] [address] [place] [address] Dr. Adrianna Caldera Platelet mean volume (Bld) [Entitic vol] 10.3 fL Normal 9.5-13.5 [facility] Comment on above: Performed By: #### U ACSIND #### [facility] [address] [place] [address] Dr. Adrianna Caldera PLT 316 103/ul Normal 150-450 [facility] Comment on above: Performed By: #### U ACSIND #### [facility] [address] [place] [address] Dr. Adrianna Caldera RBC 4.29 106/ul Normal 4.20-5.40 [facility] Comment on above: Performed By: #### U ACSIND #### [facility] [address] [place] [address] Dr. Adrianna Caldera WBC 11.0 103/ul Normal 4.0-11.0 [facility] Comment on above: Performed By: #### U ACSIND #### [facility] [address] [place] [address] ABD/PELV W CONon [...] 19:39 Normal [facility] Covid-19 PCR (CVDTB)on 04-30 SARS-CoV-2 (COVID-19) RNA ALEKSANDER+probe Ql (Unsp [...] for this test is supported by the [employer] of [employer] and Human Service's declaration that [...] #### U ACSIND #### [facility] [address] [place] [address] Dr. Adrianna Caldera ER URINE PROFILEon 2 Bilirubin Ql (U) Negative Normal NEGATIVE [facility] Comment on above: Performed By: #### P REGQNT #### [facility] [address] [place] [address] Dr. Adrianna Caldera Clarity (U) CLEAR Normal CLEAR [facility] Comment on above: Performed By: #### P REGQNT #### [facility] [address] [address] [address] Adrianna Caldera Color (U) YELLOW Normal YELLOW [facility] Comment on above: Performed By: #### P REGQNT #### [facility] [address] [address] [address] Adrianna Caldera ERUDEBBI A micrscopic examination will be performed if indicated. Normal [facility] Comment on above: Performed By: #### P REGQNT #### [facility] [address] [place] [address] Dr. Adrianna Caldera Glucose Ql (U) Negative Normal NEGATIVE [facility] Comment on above: Performed By: #### P REGQNT #### [facility] [address] [address] [address] Adrianna Caldera Hemoglobin Ql (U) Negative Normal NEGATIVE [facility] Comment on above: Performed By: #### P REGQNT #### [facility] [address] [place] [address] Dr. Adrianna Caldera Ketones Ql (U) 15 mg/dl Abnormal NEGATIVE [facility] Comment on above: Performed By: #### P REGQNT #### [facility] [address] [place] [address] Dr. Adrianna Caldera LEUKOCYTES Negative Normal NEGATIVE [facility] Comment on above: Performed By: #### P REGQNT #### [facility] [address] [place] [address] Dr. Adrianna Caldera Nitrite Ql (U) Negative Normal NEGATIVE [facility] Comment on above: Performed By: #### P REGQNT #### [facility] [address] [place] [address] Dr. Adrianna Caldera pH (U) 7.5 [pH] Normal 5-9 [facility] Comment on above: Performed By: #### P REGQNT #### [facility] [address] [place] [address] Dr. Adrianna Caldera SPEC GRAVITY 1.020 Normal 1.005-<=1.0 25 [facility] Comment on above: Performed By: #### P REGQNT #### [facility] [address] [place] [address] Dr. Adrianna Caldera UA PROTEIN Negative Normal NEGATIVE/ TRACE [facility] Comment on above: Performed By: #### P REGQNT #### [facility] [address] [place] [address] Dr. Adrianna Caldera UR MICRO IND NOT INDICATED Normal [facility] Comment on above: Performed By: #### P REGQNT #### [facility] [address] [place] [address] Dr. Adrianna Caldera Urobilinogen Qn (U) 0.2 {Micheal'U}/dL Normal 0.2 - 1. 0 [facility] Comment on above: Performed By: #### P REGQNT #### [facility] [address] [place] [address] Dr. Adrianna Caldera LIPASEon 05-26-2022 Lipase [Catalytic activity/Vol] 116.0 U/L Normal 73.0-393.0 [facility] Comment on above: Performed By: #### L IPA, CMP #### [facility] [address] [place] [address] Dr. Adrianna Caldera PROF 14(COMP METB)on 022 Albumin [Mass/Vol] 3.6 g/dL Normal 3.4-5.0 [facility] Comment on above: Performed By: #### L IPA, CMP #### [facility] [address] [place] [address] Dr. Adrianna Caldera Albumin/Globulin [Mass ratio] 0.9 {ratio} Normal [facility] Comment on above: Performed By: #### L IPA, CMP #### [facility] [address] [place] [address] Dr. Adrianna Caldera ALP [Catalytic activity/Vol] 57 U/L Normal 46-116 [facility] Comment on above: Performed By: #### L IPA, CMP #### [facility] [address] [address] [address] Adrianna Caldera ALT [Catalytic activity/Vol] 13 U/L Critically low 14-59 [facility] Comment on above: Performed By: #### L IPA, CMP #### [facility] [address] [address] [address] Adrianna Caldera Anion gap [Moles/Vol] 10.6 mmol/L Normal Th [facility] Comment on above: Performed By: #### L IPA, CMP #### [facility] [address] [place] [address] Dr. Adrianna Caldera AST [Catalytic activity/Vol] 12 U/L Critically low 15-37 [facility] Comment on above: Performed By: #### L IPA, CMP #### [facility] [address] [place] [address] Dr. Adrianna Caldera Bilirubin [Mass/Vol] 0.2 mg/dL Normal 0.2-1.0 [facility] Comment on above: Performed By: #### L IPA, CMP #### [facility] [address] [place] [address] Dr. Adrianna Caldera Calcium [Mass/Vol] 8.9 mg/dL Normal 8.5-10.1 [facility] Comment on above: Performed By: #### L IPA, CMP #### [facility] [address] [place] [address] Dr. Adrianna Caldera Chloride [Moles/Vol] 102 mmol/L Normal 98-107 [facility] Comment on above: Performed By: #### L IPA, CMP #### [facility] [address] [place] [address] Dr. Adrianna Caldera CO2 [Moles/Vol] 26.0 mmol/L Normal 21.0-32.0 [facility] Comment on above: Performed By: #### L IPA, CMP #### [facility] [address] [place] [address] Dr. Adrianna Caldera Creatinine [Mass/Vol] 0.61 mg/dL Normal 0.55-1.02 [facility] Comment on above: Performed By: #### L IPA, CMP #### [facility] [address] [address] [address] Adrianna Caldera EGFR-AF ISRAELI >60 Normal >=60 [facility] Comment on above: Performed By: #### L IPA, CMP #### [facility] [address] [address] [address] Adrianna Caldera EGFR-NON AF ISRAELI >60 Normal >=60 [facility] Comment on above: Performed By: #### L IPA, CMP #### [facility] [address] [address] [address] Adrianna Caldera Globulin (S) [Mass/Vol] 3.8 g/dL Normal [facility] Comment on above: Performed By: #### L IPA, CMP #### [facility] [address] [place] [address] Dr. Adrianna Caldera Glucose [Mass/Vol] 82 mg/dL Normal 74-106 [facility] Comment on above: Performed By: #### L IPA, CMP #### [facility] [address] [place] [address] Dr. Adrianna Caldera Potassium [Moles/Vol] 3.6 mmol/L Normal 3.5-5.1 [facility] Comment on above: Performed By: #### L IPA, CMP #### [facility] [address] [address] [address] Adrianna Caldera Protein [Mass/Vol] 7.4 g/dL Normal 6.4-8.2 [facility] Comment on above: Performed By: #### L IPA, CMP #### [facility] [address] [address] [address] Adrianna Caldera Sodium [Moles/Vol] 135 mmol/L Critically low 136-145 [facility] Comment on above: Performed By: #### L IPA, CMP #### [facility] [address] [address] [address] Adrianna Caldera Urea nitrogen [Mass/Vol] 9.0 mg/dL Normal 7.0-18.0 [facility] Comment on above: Performed By: #### L IPA, CMP #### [facility] [address] [place] [address] Dr. Adrianna Caldera Urea nitrogen/Creatinine [Mass ratio] 14.8 mg/mg Normal [facility] Comment on above: Performed By: #### L IPA, CMP #### [facility] [address] [id number] Adrianna Caldera No Panel Informationon 05-17 Body mass index (BMI) [Percentile] Per age and sex 0.1 {percentile} Invalid Interpretation Code [employer] [id number] Per age and sex 0.1 {percentile} Invalid Interpretation Code [employer] US PREG TVon 05-01-2022 US PREG TV [...] by: KAROL SIDDIQUI Date: 2022-04-30 22:06 Normal [facility] US PREG TVon 04-08-2022 US PREG [...] 03-22-2022 BASO # 0.1 103/ul Normal 0.0-0.1 [facility] Comment on above: Performed By: #### U ACSIND #### [facility] [address] [address] [address] Adrianna Caldera Basophils/100 WBC (Bld) 0.5 % Normal 0.2-2.0 [facility] Comment on above: Performed By: #### U ACSIND #### [facility] [address] [address] [address] Adrianna Caldera EO # 0.1 103/ul Normal 0.0-0.7 [facility] Comment on above: Performed By: #### U ACSIND #### [facility] [address] [address] [address] Adrianna Caldera Eosinophils/100 WBC (Bld) 0.6 % Critically low 0.9-7.0 [facility] Comment on above: Performed By: #### U ACSIND #### [facility] [address] [address] [address] Adrianna Caldera Erythrocyte distribution width (RBC) [Ratio] 12.6 % Normal 11.0-15.0 [facility] Comment on above: Performed By: #### U ACSIND #### [facility] [address] [address] [address] Adrianna Caldera Hematocrit (Bld) [Volume fraction] 40.0 % Normal 36.0-48.0 [facility] Comment on above: Performed By: #### U ACSIND #### [facility] [address] [place] [address] Dr. Adrianna Caldera Hemoglobin (Bld) [Mass/Vol] 13.6 g/dL Normal 12.0-16.0 [facility] Comment on above: Performed By: #### U ACSIND #### [facility] [address] [place] [address] Dr. Adrianna Caldera IG # 0.03 10e3/ul Normal 0.00-0.03 [facility] Comment on above: Performed By: #### U ACSIND #### [facility] [address] [place] [address] Dr. Adrianna Caldera IG % 0.3 % Normal 0.0-0.5 [facility] Comment on above: Performed By: #### U ACSIND #### [facility] [address] [place] [address] Dr. Adrianna Caldera LYMPH # 4.4 103/ul Critically high 1.2-3.8 [facility] Comment on above: Performed By: #### U ACSIND #### [facility] [address] [place] [address] Dr. Adrianna Caldera Lymphocytes/100 WBC (Bld) 38.4 % Normal 20.5-60.0 [facility] Comment on above: Performed By: #### U ACSIND #### [facility] [address] [place] [address] Dr. Adrianna Caldera MANUAL DIFF REQ NO Normal [facility] Comment on above: Performed By: #### U ACSIND #### [facility] [address] [address] [address] Adrianna Caldera MCH (RBC) [Entitic mass] 30.2 pg Normal 26.7-34.0 [facility] Comment on above: Performed By: #### U ACSIND #### [facility] [address] [place] [address] Dr. Adrianna Caldera MCHC (RBC) [Mass/Vol] 34.0 g/dL Normal 29.9-35.2 [facility] Comment on above: Performed By: #### U ACSIND #### [facility] [address] [place] [address] Dr. Adrianna Caldera MCV (RBC) [Entitic vol] 88.9 fL Normal 81.0-99.0 [facility] Comment on above: Performed By: #### U ACSIND #### [facility] [address] [place] [address] Dr. Adrianna Caldera MONO # 0.7 103/ul Normal 0.3-0.8 [facility] Comment on above: Performed By: #### U ACSIND #### [facility] [address] [place] [address] Dr. Adrianna Caldera Monocytes/100 WBC (Bld) 6.2 % Normal 1.7-12.0 [facility] Comment on above: Performed By: #### U ACSIND #### [facility] [address] [place] [address] Dr. Adrianna Caldera NEUT # 6.1 103/ul Normal 1.4-6.5 [facility] Comment on above: Performed By: #### U ACSIND #### [facility] [address] [place] [address] Dr. Adrianna Caldera Neutrophils/100 WBC (Bld) 54.0 % Normal 43.0-75.0 [facility] Comment on above: Performed By: #### U ACSIND #### [facility] [address] [place] [address] Dr. Adrianna Caldera Platelet mean volume (Bld) [Entitic vol] 10.9 fL Normal 9.5-13.5 [facility] Comment on above: Performed By: #### U ACSIND #### [facility] [address] [address] [address] Adrianna Caldera PLT 277 103/ul Normal 150-450 [facility] Comment on above: Performed By: #### U ACSIND #### [facility] [address] [address] [address] Adrianna Caldera RBC 4.50 106/ul Normal 4.20-5.40 [facility] Comment on above: Performed By: #### U ACSIND #### [facility] [address] [address] [address] Adrianna Caldera WBC 11.3 103/ul Critically high 4.0-11.0 [facility] Comment on above: Performed By: #### U ACSIND #### [facility] [address] [address] [address] Adrianna Caldera ER URINE PROFILEon 2 Bilirubin Ql (U) Negative Normal NEGATIVE [facility] Comment on above: Performed By: #### P REGU, ERUR ####[facility] [address] [address]Dr. Adrianna Caldera Clarity (U) CLEAR Normal CLEAR [facility] Comment on above: Performed By: #### P REGU, ERUR ####[facility] [address] [id number]. Adrianna Caldera Color (U) LT. YELLOW Normal YELLOW [facility] Comment on above: Performed By: #### P REGU, ERUR ####[facility] [address] [id number] MORALESD A micrscopic examination will be performed if indicated. Normal [facility] Comment on above: Performed By: #### P REGU, ERUR ####[facility] [address] [address]DrAung Caldera Glucose Ql (U) Negative Normal NEGATIVE [facility] Comment on above: Performed By: #### P REGU, ERUR ####[facility] [address] [place], [place] [address]Dr. Adrianna Caldera Hemoglobin Ql (U) Negative Normal NEGATIVE [facility] Comment on above: Performed By: #### P REGU, ERUR ####[facility] [address] [place], [place] [address]Dr. Jemimabenito Caldera Ketones Ql (U) Negative Normal NEGATIVE [facility] Comment on above: Performed By: #### P REGU, ERUR ####[facility] [address] [place], [place] [address]Dr. Jemimabenito Werner LEUKOCYTES Negative Normal NEGATIVE [facility] Comment on above: Performed By: #### P REGU, ERUR ####[facility] [address] [place], [place] [address]Dr. Jemimabenito Caldera Nitrite Ql (U) Negative Normal NEGATIVE [facility] Comment on above: Performed By: #### P REGU, ERUR ####[facility] [address] [place], [place] [address]Dr. Adrianna Caldera pH (U) 6.0 [pH] Normal 5-9 [facility] Comment on above: Performed By: #### P REGU, ERUR ####[facility] [address] [place], [place] [address]Dr. Adrianna Caldera SPEC GRAVITY <=1.005 Abnormal 1.005-<=1.0 25 [facility] Comment on above: Performed By: #### P REGU, ERUR ####[facility] [address] [place], [place] [address]Dr. Adrianna Caldera UA PROTEIN Negative Normal NEGATIVE/ TRACE [facility] Comment on above: Performed By: #### P REGU, ERUR ####[facility] [address] [place], [place] [address]Dr. Adrianna Caldera UR MICRO IND NOT INDICATED Normal [facility] Comment on above: Performed By: #### P REGU, ERUR ####[facility] [address] [place], [place] [address]Dr. Adrianna Caldera Urobilinogen Qn (U) 0.2 {Micheal'U}/dL Normal 0.2 - 1. 0 [facility] Comment on above: Performed By: #### P DEVENDRA ERUR ####[facility] [address] [id number]. Adrianna Caldera PREG QUANT HCGon 03-22-2022 HCG QUANT 2 mIU/mL Normal [facility] Comment on above: Performed By: #### P REGQNT #### [facility] [address] [address] [address] Adrianna Caldera HCG RANGE SEE BELOW Normal [facility] Comment on above: Result Comment: 5-50 0.2-1 WEEK 50-500 1-2 WEEKS 100-5,000 2-3 WEEKS 500-10,000 3-4 WEEKS 1,000-50,000 4-5 WEEKS 10,000-100,000 5-6 WEEKS 15,000-200,000 6-8 WEEKS 10,000-100,000 2-3 MONTHS Performed By: #### P REGQNT #### [facility] [address] [address] [address] Adrianna Caldera URon 03-22-2022 , QUAL Negative Normal NEGATIVE [facility] Comment on above: Performed By: #### P DEVENDRA ERUR ####[facility] [address] [id number]. Adrianna Caldera PROF CHEM 8 (BAS METB)on Anion gap [Moles/Vol] 10.9 mmol/L Normal [facility] Comment on above: Performed By: #### U ACSIND #### [facility] [address] [place] [address] Dr. Adrianna Caldera Calcium [Mass/Vol] 9.1 mg/dL Normal 8.5-10.1 [facility] Comment on above: Performed By: #### U ACSIND #### [facility] [address] [address] [address] Adrianna Caldera Chloride [Moles/Vol] 105 mmol/L Normal 98-107 [facility] Comment on above: Performed By: #### U ACSIND #### [facility] [address] [address] [address] Adrianna Caldera CO2 [Moles/Vol] 26.0 mmol/L Normal 21.0-32.0 [facility] Center Comment on above: Performed By: #### U ACSIND #### [facility] [address] [address] [address] Adrianna Caldera Creatinine [Mass/Vol] 0.98 mg/dL Normal 0.55-1.02 [facility] Comment on above: Performed By: #### U ACSIND #### [facility] [address] [address] [address] Adrianna Caldera EGFR-AF ISRAELI >60 Normal >=60 [facility] Comment on above: Performed By: #### U ACSIND #### [facility] [address] [address] [address] Adrianna Caldera EGFR-NON AF ISRAELI >60 Normal >=60 [facility] Comment on above: Performed By: #### U ACSIND #### [facility] [address] [address] [address] Adrianna Caldera Glucose [Mass/Vol] 87 mg/dL Normal 74-106 [facility] Comment on above: Performed By: #### U ACSIND #### [facility] [address] [address] [address] Adrianna Caldera Potassium [Moles/Vol] 3.9 mmol/L Normal 3.5-5.1 [facility] Comment on above: Performed By: #### U ACSIND #### [facility] [address] [address] [address] Adrianna Caldera Sodium [Moles/Vol] 138 mmol/L Normal 136-145 [facility] Comment on above: Performed By: #### U ACSIND #### [facility] [address] [address] [address] Adrianna Caldera Urea nitrogen [Mass/Vol] 11.0 mg/dL Normal 7.0-18.0 [facility] Comment on above: Performed By: #### U ACSIND #### [facility] [address] [address] [address] Adrianna Caldera Urea nitrogen/Creatinine [Mass ratio] 11.2 mg/mg Normal [facility] Comment on above: Performed By: #### U ACSIND #### [facility] [address] [place] [address] Dr. Adrianna Caldera PREG QUANT HCGon 03-03-2022 HCG QUANT 1 mIU/mL Normal [facility] Comment on above: Performed By: #### P REGQNT #### [facility] [address] [place] [address] Dr. Adrianna Caldera HCG RANGE SEE BELOW Normal [facility] Comment on above: Result Comment: 5-50 0.2-1 WEEK 50-500 1-2 WEEKS 100-5,000 2-3 WEEKS 500-10,000 3-4 WEEKS 1,000-50,000 4-5 WEEKS 10,000-100,000 5-6 WEEKS 15,000-200,000 6-8 WEEKS 10,000-100,000 2-3 MONTHS Performed By: #### P REGQNT #### [facility] [address] [place] [address] Dr. Adrianna Caldera Creatinine and Glomerular fi ltration rate.predicted panel (S/P/Bld)Ordered By: Tae Natarajan on 02-10-2022 Creatinine [Mass/Vol] 1.03 mg/dL 0.44-1.03 [facility] Estimated glomerular filtrat ion rate (GFR) non- AmericanOrdered By: Tae Natarajan on 02-10-2022 GFR/1.73 sq M.predicted among non-blacks MDRD (S/P/Bld) [Vol rate/Area] > 60 mL/Min [facility] HCG ( test) IA.rapi d Ql (U)Ordered By: Tae Natarajan on 02-10-2022 HCG ( test) Ql (U) Negative [facility] No Panel InformationOrdered By: Tae Natarajan on 02-10-2022 Estimated GFR () > 60 mL/Min [facility] Comment on above: GFR estimated refere nce range: According to KDOQI guidelines, <60 ml/min/1.73m2 is sufficient to diagnose a patient with chronic kidney disease. Pharmacy Creatinine Clearance (Chem 88.89 [facility] Serum or plasma urea nitroge n measurement (mass/volume)Ordered By: Tae Natarajan on 02-10-2022 Urea nitrogen [Mass/Vol] 9 mg/dL 02-19 [facility] PREG QUANT HCGon 12-04-2021 HCG QUANT <1 Normal [facility] Comment on above: Performed By: #### P REGQNT #### [facility] [address] [address] [address] Adrianna Caldera HCG RANGE SEE BELOW Normal [facility] Comment on above: Result Comment: 5-50 0-1 WEEK 40-300 1-2 WEEKS 100-1,000 2-3 WEEKS 500-6,000 3-4 WEEKS 5,000-200,000 1-2 MONTHS 10,000-100,000 2-3 MONTHS 3,000-50,000 2ND TRIMESTER 1,000-50,000 3RD TRIMESTER Performed By: #### P REGQNT #### [facility] [address] [address] [address] Adrianna Caldera CBC AUTO DIFFon 11-14-2021 BASO # 0.1 103/ul Normal 0.0-0.1 [facility] Comment on above: Performed By: #### C BC ####[facility] [address] [address]DrAung Caldera Basophils/100 WBC (Bld) 0.5 % Normal 0.2-2.0 [facility] Comment on above: Performed By: #### C BC ####[facility] [address] [address]DrAung Caldera EO # 0.1 103/ul Normal 0.0-0.7 [facility] Comment on above: Performed By: #### C BC ####[facility] [address] [address]DrAung Caldera Eosinophils/100 WBC (Bld) 0.8 % Critically low 0.9-7.0 [facility] Comment on above: Performed By: #### C BC ####[facility] [address] [place], [place] [address]Dr. Adrianna Caldera Erythrocyte distribution width (RBC) [Ratio] 13.0 % Normal 11.0-15.0 [facility] Comment on above: Performed By: #### C BC ####[facility] [address] [place], [place] [address]Dr. Adrianna Caldera Hematocrit (Bld) [Volume fraction] 38.5 % Normal 36.0-48.0 [facility] Comment on above: Performed By: #### C BC ####[facility] [address] [place], [place] [address]Dr. Adrianna Caldera Hemoglobin (Bld) [Mass/Vol] 12.9 g/dL Normal 12.0-16.0 [facility] Comment on above: Performed By: #### C BC ####[facility] [address] [place], [place] [address]Dr. Adrianna Caldera IG # 0.03 10e3/ul Normal 0.00-0.03 [facility] Comment on above: Performed By: #### C BC ####[facility] [address] [place], [place] [address]Dr. Jemimabenito Caldera IG % 0.3 % Normal 0.0-0.5 [facility] Comment on above: Performed By: #### C BC ####[facility] [address] [place], [place] [address]Dr. Jemimabenito Caldera LYMPH # 2.8 103/ul Normal 1.2-3.8 [facility] Comment on above: Performed By: #### C BC ####[facility] [address] [place], [place] [address]Dr. Jemimabenito Caldera Lymphocytes/100 WBC (Bld) 27.4 % Normal 20.5-60.0 [facility] Comment on above: Performed By: #### C BC ####[facility] [address] [place], [place] [address]Dr. Adrianna Caldera MANUAL DIFF REQ NO Normal The [facility] Comment on above: Performed By: #### C BC ####[facility] [address] [place], [place] [address]Dr. Adrianna Caldera MCH (RBC) [Entitic mass] 29.7 pg Normal 26.7-34.0 [facility] Comment on above: Performed By: #### C BC ####[facility] [address] [address]Dr. Adrianna Caldera MCHC (RBC) [Mass/Vol] 33.5 g/dL Normal 29.9-35.2 [facility] Comment on above: Performed By: #### C BC ####[facility] [address] [address]Dr. Adrianna Caldera MCV (RBC) [Entitic vol] 88.7 fL Normal 81.0-99.0 [facility] Comment on above: Performed By: #### C BC ####[facility] [address] [address]Dr. Adrianna Caldera MONO # 0.7 103/ul Normal 0.3-0.8 [facility] Comment on above: Performed By: #### C BC ####[facility] [address] [address]Dr. Adrianna Caldera Monocytes/100 WBC (Bld) 6.5 % Normal 1.7-12.0 [facility] Comment on above: Performed By: #### C BC ####[facility] [address] [address]Dr. Adrianna Caldera NEUT # 6.5 103/ul Normal 1.4-6.5 [facility] Comment on above: Performed By: #### C BC ####[facility] [address] [address]Dr. Adrianna Caldera Neutrophils/100 WBC (Bld) 64.5 % Normal 43.0-75.0 [facility] Comment on above: Performed By: #### C BC ####[facility] [address] [address]Dr. Adrianna Caldera Platelet mean volume (Bld) [Entitic vol] 10.4 fL Normal 9.5-13.5 [facility] Comment on above: Performed By: #### C BC ####[facility] [address] [address]Dr. Adrianna Caldera PLT 324 103/ul Normal 150-450 [facility] Comment on above: Performed By: #### C BC ####[facility] [address] [address]Dr. Adrianna Caldera RBC 4.34 106/ul Normal 4.20-5.40 [facility] Comment on above: Performed By: #### C BC ####[facility] [address] [address]Dr. Adrianna Caldera WBC 10.1 103/ul Normal 4.0-11.0 [facility] Comment on above: Performed By: #### C BC ####[facility] [address] [place], [place] [address]Dr. Adrianna Caldera ER URINE PROFILEon 2 Bilirubin Ql (U) Negative Normal NEGATIVE [facility] Comment on above: Performed By: #### HECTOR HAYNESU UMICRO ####[facility] [address] [place], [place] [address]Dr. Adrianna Caldera Clarity (U) CLEAR Normal CLEAR [facility] Comment on above: Performed By: #### JOHN HAYNES UMICRO ####[facility] [address] [place], [place] [address]Dr. Adrianna Caldera Color (U) LT. YELLOW Normal YELLOW [facility] Comment on above: Performed By: #### HECTOR HAYNESU UMICRO ####[facility] [address] [address]Dr. Adrianna Werner ERUAHD A micrscopic examination will be performed if indicated. Normal [facility] Comment on above: Performed By: #### HECTOR HAYNESU UMICRO ####[facility] [address] [address]Dr. Adrianna Werner Glucose Ql (U) Negative Normal NEGATIVE The [facility] Comment on above: Performed By: #### Rojelio RUAugie PREGU UMICRO ####[facility] [address] [place], [place] [address]Dr. Adrianna Caldera Hemoglobin Ql (U) LARGE Abnormal NEGATIVE The [facility] Comment on above: Performed By: #### JOHN HAYNES UMICRO ####[facility] [address] [address]Dr. Adrianna Caldera Ketones Ql (U) Negative Normal NEGATIVE [facility] Comment on above: Performed By: #### JOHN HAYNES UMICRO ####[facility] [address] [address]Dr. Adrianna Caldera LEUKOCYTES Negative Normal NEGATIVE [facility] Comment on above: Performed By: #### JOHN HAYNES UMICRO ####[facility] [address] [address]Dr. Adrianna Caldera Nitrite Ql (U) Negative Normal NEGATIVE [facility] Comment on above: Performed By: #### JOHN HAYNES UMICRO ####[facility] [address] [address]Dr. Adrianna Caldera pH (U) 6.5 [pH] Normal 5-9 [facility] Comment on above: Performed By: #### JOHN HAYNES UMICRO ####[facility] [address] [address]Dr. Adrianna Caldera SPEC GRAVITY 1.015 Normal 1.005-<=1.0 25 [facility] Comment on above: Performed By: #### JOHN HAYNES UMICRO ####[facility] [address] [address]Dr. Adrianna Caldera UA PROTEIN Negative Normal NEGATIVE/ TRACE [facility] Comment on above: Performed By: #### JOHN HAYNES UMICRO ####[facility] [address] [address]Dr. Adrianna Caldera UR MICRO IND INDICATED Normal [facility] Comment on above: Performed By: #### JOHN HAYNES UMICRO ####[facility] [address] [address]DrAung Caldera Urobilinogen Qn (U) 0.2 {Micheal'U}/dL Normal 0.2 - 1. 0 [facility] Comment on above: Performed By: #### E JOHN MONDRAGON UMICRO ####[facility] [address] [place], [place] [address]IxDr. Adrianna Caldera URon 11-14-2021 , QUAL Negative Normal NEGATIVE [facility] Comment on above: Performed By: #### E JOHN MONDRAGON UMICRO ####[facility] [address] [place], [place] [address]QmAung Caldera PROF CHEM 8 (BAS METB)on Anion gap [Moles/Vol] 13.5 mmol/L Normal [facility] Comment on above: Performed By: #### U ACSIND #### [facility] [address] [address] [address] Adrianna Caldera Calcium [Mass/Vol] 8.7 mg/dL Normal 8.5-10.1 [facility] Comment on above: Performed By: #### U ACSIND #### [facility] [address] [address] [address] Adrianna Caldera Chloride [Moles/Vol] 102 mmol/L Normal 98-107 [facility] Comment on above: Performed By: #### U ACSIND #### [facility] [address] [address] [address] Adrianna Caldera CO2 [Moles/Vol] 27.3 mmol/L Normal 21.0-32.0 [facility] Comment on above: Performed By: #### U ACSIND #### [facility] [address] [address] [address] Adrianna Caldera Creatinine [Mass/Vol] 0.85 mg/dL Normal 0.55-1.02 [facility] Comment on above: Performed By: #### U ACSIND #### [facility] [address] [address] [address] Adrianna Caldera EGFR-AF ISRAELI >60 Normal >=60 [facility] Comment on above: Performed By: #### U ACSIND #### [facility] [address] [address] [address] Adrianna Caldera EGFR-NON AF ISRAELI >60 Normal >=60 [facility] Comment on above: Performed By: #### U ACSIND #### [facility] [address] [address] [address] Adrianna Caldera Glucose [Mass/Vol] 104 mg/dL Normal 74-106 [facility] Comment on above: Performed By: #### U ACSIND #### [facility] [address] [address] [address] Adrianna Caldera Potassium [Moles/Vol] 3.8 mmol/L Normal 3.5-5.1 [facility] Comment on above: Performed By: #### U ACSIND #### [facility] [address] [address] [address] Adrianna Caldera Sodium [Moles/Vol] 139 mmol/L Normal 136-145 [facility] Comment on above: Performed By: #### U ACSIND #### [facility] [address] [address] [address] Adrianna Caldera Urea nitrogen [Mass/Vol] 8.0 mg/dL Normal 7.0-18.0 [facility] Comment on above: Performed By: #### U ACSIND #### [facility] [address] [address] [address] Adrianna Caldera Urea nitrogen/Creatinine [Mass ratio] 9.4 mg/mg Normal [facility] Comment on above: Performed By: #### U ACSIND #### [facility] [address] [address] [address] Adrianna Caldera URINE MICROSCOPIC ONLYon BACTERIA NONE SEEN Normal NONE SEEN [facility] Comment on above: Performed By: #### E JOHN MONDRAGON UMICRO ####[facility] [address] [place], [place] [address]WlDr. Adrianna Caldera Bacteria identified Cx Nom (U) NOT INDICATED Normal [facility] Comment on above: Performed By: #### JOHN HAYNES UMICRO ####[facility] [address] [id number]. Adrianna Caldera CAST NONE SEEN Normal NONE SEEN [facility] Comment on above: Performed By: #### HECTOR HAYNESU UMICRO ####[facility] [address] [id number]. Jemimabenito Caldera Crystals LM Nom (Urine sed) NONE SEEN Normal NONE SEEN [facility] Comment on above: Performed By: #### HECTOR HAYNESU UMICRO ####[facility] [address] [id number]. Adrianna Werner Epithelial cells LM Ql (Urine sed) RARE Normal NONE SEEN /RARE [facility] Comment on above: Performed By: #### Rojelio MONDRAGON PREGU UMICRO ####[facility] [address] [address]Dr. Adrianna Caldera MUCOUS NONE SEEN Normal NONE SEEN [facility] Comment on above: Performed By: #### HECTOR HAYNESU UMICRO ####[facility] [address] [id number]. Adrianna Werner RBC 10-20 Abnormal 0-2 [facility] Comment on above: Performed By: #### HECTOR HAYNESU UMICRO ####[facility] [address] [id number]. Adrianna Werner WBC 0-2 Abnormal NONE SEEN [facility] Comment on above: Performed By: #### Rojelio MONDRAGON PREGU UMICRO ####[facility] [address] [address]Dr. Jemimabenito Caldera HCG, Quantitative, on 10-12-2021 hCG Quant <1 <5 mIU/mL [facility] Comment on above: Non-preg premeno <=5 Postmeno <=8 Male <=3 If HCG results do not concur with clinical observations, additional testing to confirm results is recommended. Elevated results not associated with may be found in patients with other diseases such as tumors of the germ cells (testis, ovaries, etc.), bladder, pancreas, stomach, lungs, and liver. [facility] CBC with Auto Differentialon 10-11-2021 Absolute Eos # 0.08 [facility] th Absolute Immature Granulocyte <0.03 [facility] Absolute Lymph # 1.85 [facility] Absolute [place] # 0.56 [facility] Basophils (Bld) [#/Vol] 0.04 10*3/uL [facility] Basophils/100 WBC (Bld) 1 % 0 - 2 % [facility] Eosinophils/100 WBC (Bld) 1 % 1 - 4 % [facility] Hematocrit (Bld) [Volume fraction] 38.9 % 36.3 - 47.1 % [facility] Hemoglobin.gastrointest inal spec 1 Ql (Stl) 12.7 g/dL 11.9 - 15.1 g/dL [facility] Immature granulocytes/100 WBC (Bld) 0 % 0 [facility] Lymphocytes/100 WBC (Bld) 29 % 24 - 43 % [facility] MCH (RBC) [Entitic mass] 29.7 pg 25.2 - 33.5 pg [facility] MCHC (RBC) [Mass/Vol] 32.6 g/dL 28.4 - 34.8 g/dL [facility] MCV (RBC) [Entitic vol] 90.9 fL 82.6 - 102.9 fL [facility] Monocytes/100 WBC (Bld) 9 % 3 - 12 % [facility] NRBC Automated 0.0 0.0 per 100 WBC [facility] Platelet distribution width (Bld) [Ratio] 12.9 % 11.8 - 14.4 % [facility] Platelet mean volume (Bld) [Entitic vol] 10.3 fL 8.1 - 13.5 fL [facility] Platelets (Bld) [#/Vol] 351 10*3/uL [facility] RBC (Bld) [#/Vol] 4.28 10*6/uL 3.95 - 5.1 1 m/uL [facility] Segmented neutrophils/100 WBC (Bld) 60 % 36 - 65 % [facility] Segs Absolute 3.90 [facility] h WBC (Bld) [#/Vol] 6.5 10*3/uL [facility][Note 3[facility] CT ABDOMEN PELVIS W IV CONTR AST [...] No hydronephrosis. Gallbladder is not remarkable. GI/Bowel: Yhdh-ev-lnyyttii retained stool without bowel obstruction. No pericecal inflammatory changes. Appendix unremarkable. Pelvis: There is mild prominence endometrial canal 7 mm. This may related to phase of menstrual cycle. Please correlate exam findings and history. No suspicious adnexal mass. Bladder remarkable. Peritoneum/Retroperi toneum: Trace free fluid dependent pelvis. No free air. No suspicious adenopathy. Bones/Soft Tissues: No suspicious osseous lesion PN RIS CONSOLIDATED Ashutosh Omalley MD - 10/11/2021 EXAMINATION: CT [...] No hydronephrosis. Gallbladder is not remarkable. GI/Bowel: Hjgl-mg-rbuvfxew retained stool without bowel obstruction. No pericecal [...] Negative acute inflammatory process or bowel obstruction. [employer] Work Phone: Radiology Study observation (narrative) [employer] Work Phone: CT ABDOMEN PELVIS W IV CONTR AST Additional Contrast? NoneOrdered By: Ashutosh Omalley on 10-11-2021 [employer] Work Phone: Comprehensive Metabolic Pane l w/ Reflex to MGon 10-11-2021 Albumin [Mass/Vol] 4.3 g/dL 3.5 - 5.2 g/dL [employer] Albumin/Globulin [Mass ratio] 1.7 {ratio} [employer] ALP (Bld) [Catalytic activity/Vol] 73 U/L 35 - 104 U/L [employer] ALT [Catalytic activity/Vol] 21 U/L 5 - 33 U/L [employer] Anion gap [Moles/Vol] 7 mmol/L Low 9 - 17 mmol/L [employer] AST [Catalytic activity/Vol] 15 U/L <32 [employer] Bilirubin [Mass/Vol] 0.25 mg/dL Low 0.3 - 1 .2 mg/dL [employer] Calcium [Mass/Vol] 9.1 mg/dL 8.6 - 10. 4 mg/dL [employer] Chloride [Moles/Vol] 105 mmol/L 98 - 10 7 mmol/L [employer] CO2 [Moles/Vol] 26 mmol/L 20 - 31 mmol/L [employer] Creatinine [Mass/Vol] 0.75 mg/dL 0.50 - 0.90 mg/dL [employer] Free PSA/Total PSA [Mass fraction] 6.8 g/dL 6.4 - 8.3 g/dL [employer] GFR >60 >60 mL/min [employer] GFR Non- >60 >60 mL/min [employer] Glucose [Mass/Vol] 116 mg/dL High 70 - 99 mg/dL [employer] Interpretation and review of laboratory results Abnormal [employer] Potassium [Moles/Vol] 3.9 mmol/L 3.7 - 5.3 mmol/L [employer] Sodium [Moles/Vol] 138 mmol/L 135 - 144 mmol/L [facility] Urea nitrogen (BldV) [Mass/Vol] 9 mg/dL 6 - 20 mg/dL [facility] Urea nitrogen/Creatinine (Bld) [Mass ratio] 12 [facility] Laboratory - Chemistry and C hemistry - challengeon 10-11-2021 GFR/1.73 sq M.predicted MDRD (S/P/Bld) [Vol rate/Area] [facility] Comment on above: Average GFR for 20-2 9 years old: 116 mL/min/1.73sq m Chronic Kidney Disease: <60 mL/min/1.73sq m Kidney failure: <15 mL/min/1.73sq m eGFR calculated using average adult body mass. Additional eGFR calculator available at: http://www.[employer]/multiple_crcl_2012.htm Stage 1: Some kidney damage normal GFR Stage 2: Mild kidney damage GFR 60-89 Stage 3: Moderate kidney damage GFR 30-59 Stage 4: Severe kidney damage GFR 15-29 Stage 5: Severe kidney damage GFR <15 ESRD - chronic treatment by dialysis or transplant Lipaseon 10-11-2021 Lipase [Catalytic activity/Vol] 39 U/L 13 - 60 U/L [facility] Microscopic Urinalysison - [facility] [employer] Bacteria, UA TRACE Abnormal None [facility] [employer] Crystals, UA 2 TO 5 CALCIUM OXALATE Abnormal None /HPF [facility] Epithelial Cells UA 2 TO 5 [facility] Interpretation and review of laboratory results Abnormal [facility] RBC, UA 2 TO 5 [facility] [employer] WBC, UA 0 TO 2 [facility][Note 3] No Panel Informationon 10-11 [facility] [employer] , Urineon 2 Beta HCG ( test) Ql (U) Negative NEGATIVE [facility] Comment on above: Specimens with hCG l evels near the threshold of the test (25 mIU/mL) may give a negative or indeterminate result. In such cases, another test should be performed with a new specimen in 48-72 hours. If early is suspected clinically in this setting, correlation with quantitative serum b-hCG level is suggested. [employer] has confirmed the use of plasma for this test. This has not been cleared or approved by the U.S. Food and Drug Administration. The FDA has determined that such clearance is not necessary. [employer] Urinalysis with Reflex to Cu ltureon 10-11-2021 Bilirubin Urine Negative NEGATIVE [employer] [facility] Color, UA Yellow Yellow [employer] Glucose, Ur Negative NEGATIVE [employer] Interpretation and review of laboratory results Abnormal [employer] Ketones Ql (U) Negative NEGATIVE [facility] Leukocyte esterase Test strip Ql (U) Negative NEGATIVE [employer] Nitrite, Urine Negative NEGATIVE [facility] th pH, UA 6.0 [employer] Protein, UA Negative NEGATIVE [employer] Specific [place], UA >1.030 [employer] Turbidity UA Clear Clear [employer] Urine Hgb TRACE Abnormal NEGATIVE [employer] Urobilinogen, Urine Normal Normal [facility] PREG QUANT HCGon 10-09-2021 HCG QUANT <1 Normal [facility] Comment on above: Performed By: #### P REGQNT ####[facility] [id number] [id number]. Jemimabenito Caldera HCG RANGE SEE BELOW Normal [facility] Comment on above: Result Comment: 5-50 0-1 WEEK 40-300 1-2 WEEKS 100-1,000 2-3 WEEKS 500-6,000 3-4 WEEKS 5,000-200,000 1-2 MONTHS 10,000-100,000 2-3 MONTHS 3,000-50,000 2ND TRIMESTER 1,000-50,000 3RD TRIMESTER Performed By: #### P REGQNT ####[facility] [id number] [place], [place] [id number]. Adrianna Caldera CULTURE, URINE, ROUTINEon CULTURE, URINE, ROUTINE SEE NOTE Abnormal [facility] Comment on above: Result Comment: CULTURE, URINE, ROUTINE Micro Number: [id number] Test Status: Final Specimen Source: Urine Specimen [...] Performed By: #### 3 95 #### [facility] [address], [address] [place] [address] Manager Intensive Care Unit: Javid Broussard MD XR CHEST PORTABLEon 03-16-20 20 No acute process. [facility] ZOIE STOKES EXAMINATION: ONE XRAY VIEW OF THE CHEST 03/16/2020 3:33 pm COMPARISON: 07/13/2014 HISTORY: ORDERING SYSTEM PROVIDED HISTORY: cough, dyspnea TECHNOLOGIST PROVIDED HISTORY: cough, dyspnea FINDINGS: The lungs are without acute focal process. There is no effusion or pneumothorax. The cardiomediastinal silhouette is without acute process. The osseous structures are without acute process. [place], [place] James, Mhpn Incoming Radiant Results From [employer]Pacs - 03/16/2020 3:43 PM EDT EXAMINATION: ONE XRAY VIEW OF THE CHEST 03/16/2020 3:33 pm COMPARISON: 07/13/2014 HISTORY: ORDERING SYSTEM PROVIDED HISTORY: cough, dyspnea TECHNOLOGIST PROVIDED HISTORY: cough, dyspnea FINDINGS: The lungs are without acute focal process. There is no effusion or pneumothorax. The cardiomediastinal silhouette is without acute process. The osseous structures are without acute process. IMPRESSION: No acute process. [place] Urinalysis with Microscopico n 03-03-2020 Amorphous, UA 1+ Abnormal None [place] Bacteria, UA NOT REPORTED None [place], [place] Bilirubin Urine Negative NEGATIVE [place] Casts UA NOT REPORTED /LPF [place] Color, UA YELLO YELLOW [place] Crystals, UA NOT REPORTED None /HPF [place] Epithelial Cells UA None [place] Glucose, Ur Negative NEGATIVE [place] Interpretation and review of laboratory results Abnormal [place] Ketones Ql (U) Negative NEGATIVE [place] Leukocyte esterase Test strip Ql (U) Negative NEGATIVE [place] Mucus, UA NOT REPORTED None [place], [place] Nitrite, Urine Negative NEGATIVE [place] Other Observations UA NOT REPORTED NOT REQ. [place] pH, UA 6.0 [place] Protein (U) [Mass/Vol] Negative NEGATIVE [place] RBC (U) [#/Vol] None [place], [place] Renal Epithelial, UA NOT REPORTED 0 /HPF [place] Specific [place], UA >1.030 [place], [place] Trichomonas, UA NOT REPORTED None [employer], [place] Turbidity UA CLOUDY Abnormal CLEAR [place] Urinalysis Comments NOT REPORTED [place] Urine Hgb TRACE Abnormal NEGATIVE [place] Urobilinogen, Urine Normal Normal [place] WBC, UA 0 TO 2 [place] Yeast, UA NOT REPORTED None [place], [place] - [place] HEPATOBILIARY SCAN W EJEC TION FRACTIONon 10-12-2019 Cholesterol [Mass/Vol] No convincing scintigraphic evidence of acute or chronic cholecystitis. [place] EXAMINATION: NUCLEAR MEDICINE HEPATOBILIARY SCINTIGRAPHY (HIDA [...] 30-60 mins. Images were obtained in the GERMAN projection and regions of interest were drawn [...] range is based on a limited study. [place], [place] James, pn Incoming Radiant Results From [employer]/Pacs - 10/12/2019 2:56 PM EDT EXAMINATION: NUCLEAR [...] 30-60 mins. Images were obtained in the GERMAN projection and regions of interest were drawn [...] scintigraphic evidence of acute or chronic cholecystitis. [facility] [place] HEPATOBILIARY SCAN W PHAR MACOLOGICAL [...] 30-60 mins. Images were obtained in the GERMAN projection and regions of interest were drawn [...] Niraj Covarrubias MD 10/12/19 Final result Normal [facility] H. pylori urease IDon 2019 H. pylori urease ID Specimen Description .TISSUE, ST[place] [id number] EXP 04/05/20 Direct Exam NEGATIVE Report Status FINAL 10/06/2019 Normal [facility] Comment on above: Performed By: #### H JOELLE #### [facility] [address] [place] [address] Tip Inserter: Varun Vicente MD [id number] [place], [place] [id number] Tip Inserter: Omar Segundo MD OPERATIVE REPORTon 0 OPERATIVE REPORT [address] [address] OPERATIVE REPORT PATIENT NAME: LULÚ GAITAN : 1995 MED REC NO: [id number] ROOM: ACCOUNT NO: [id number] ADMIT DATE: 10/05/2019 PROVIDER: Toño Blanc Jr [...] satisfactory condition. TOÑO BLANC JR [email or web address] Doc#: [id number] CC: Lisseth Alex Lundberg [facility] Normal [facility] POCT urine pregnancyon 10-04 Beta HCG ( test) Ql (U) Negative [facility]GATIVE [facility] Comment on above: Specimens with hCG l evels near the threshold of the test (25 mIU/mL) may give a negative or indeterminate result. In such cases, another test should be performed with a new specimen in 48-72 hours. If early is suspected clinically in this setting, correlation with quantitative serum b-hCG level is suggested. [id number] 10-05-2019 SARS-CoV-2 Not Detected Normal Not Detected [facility] Comment on above: Result Comment: (NOT E) The [employer] RealTime SARS-CoV-2 assay is a real-time (rt) reverse transcriptase (RT) polymerase chain reaction (PCR) test intended for the [employer] system. The SARS-CoV-2 primer and probe sets are designed to detect RNA from SARS-CoV-2 in nasopharyngeal (MEDICAL OFFICE ASSISTANT) and oropharyngeal (OP) swabs from patients with [...] The above 1 analytes were performed by [facility] [address] [place] [address] Performed By: #### C OVID #### [facility] [address] [facility] [address] Tip Inserter: Samson Martinez DO [employer] [address] [place] [address] [id number] Tip Inserter: Omar Segundo MD [facility] [address] [place], [place] [id number] Tip Inserter: Bill Jolly MD Surgical Pathologyon 020 Surgical [...] SURGICAL PATHOLOGY CONSULTATION Patient Name: LULÚ GAITAN [facility] Rec: [id number] Path Number: [id number] [employer] [facility] ANATOMIC PATHOLOGY [address] [place] [id number] [facility] Comment on above: Performed By: #### P PPVS #### [employer] [address] [place] [address] [id number] Tip Inserter: Omar Segundo MD [id number] 10-03-2019 SARS-CoV-2,Rapid [facility] Comment on above: Performed By: #### C OVID #### [facility] [address] [facility] [address] Tip Inserter: Samson Martinez DO [id number] [place] [address] Tip Inserter: Omar Segundo MD [facility] [address] [place] [address] Tip Inserter: Bill Jolly MD SARS-CoV-2 Normal [facility] Comment on above: Performed By: #### C OVID #### [facility] [address] [facility] [place] [address] Tip Inserter: Samson Martinez DO [address] [address] Tip Inserter: Omar Segundo MD [facility] [address] [place] [address] Tip Inserter: Bill Jolly MD SARS-CoV-2 Source .NASOPHARYNGEAL SWAB Normal [facility] Comment on above: Performed By: #### C OVID #### [facility] [address] [place] [address] Tip Inserter: Samson Martinez DO [address] [address] Tip Inserter: Omar Segundo MD [facility] [address] [place] [address] Tip Inserter: Bill Jolly MD XR ABDOMEN (KUB) (SINGLE AP VIEW)on 02-08-2019 Nonspecific nonobstructive bowel gas pattern. No definite calcified urinary tract stones are seen. [facility] [place] EXAMINATION: ONE SUPINE XRAY VIEW(S) OF [...] nonobstructive bowel gas pattern. No unusual calcifications. [place] James, Mhpn Incoming Radiant Results From [employer]/Pacs - 02/08/2019 4:29 PM EDT EXAMINATION: ONE [...] definite calcified urinary tract stones are seen. [place] Urinalysis with Microscopico n 02-06-2019 Amorphous, UA NOT REPORTED None [place] Bacteria, UA TRACE Abnormal None [place] Bilirubin Urine Negative NEGATIVE [place] Casts UA NOT REPORTED /LPF [place] Color, UA YELLOW YELLOW [place] Crystals UA NOT REPORTED None /HPF [place] Epithelial Cells UA 2 TO 5 [place] Glucose, Ur Negative NEGATIVE [place] Interpretation and review of laboratory results Abnormal [place] Ketones Ql (U) Negative NEGATIVE [place] Leukocyte esterase Test strip Ql (U) Negative NEGATIVE [place] Mucus, UA 1+ Abnormal None [place] Nitrite, Urine Negative NEGATIVE [place] Other Observations UA NOT REPORTED NOT REQ. [place] pH, UA 7.0 [place] Protein (U) [Mass/Vol] Negative NEGATIVE [place] RBC (U) [#/Vol] 0 TO 2 [facility] [place] Renal Epithelial, Urine NOT REPORTED 0 /HPF [place] Specific [place], UA 1.020 [place], [place] Trichomonas, UA NOT REPORTED None [facility] [place] Turbidity UA CLEAR CLEAR [place] Urinalysis Comments NOT REPORTED [place] Urine Hgb TRACE Abnormal NEGATIVE [place] Urobilinogen, Urine Normal Normal [place] WBC, UA 0 TO 2 [place] Yeast, UA NOT REPORTED None [place], [place] Wet prep, genitalon 02-07-20 19 Direct Exam NO TRICHOMONAS SEEN [place] Direct Exam YEAST [place] Direct Exam CLUE CELLS SEEN Abnormal [place], [place] Interpretation and review of laboratory results Abnormal [place] Special Requests NOT REPORTED [place] Specimen Description .VAGINA [place] Vital Signs Date Time Vital Sign Value Performing Clinician Facility 07-07-2023 10:35-0500 Body height 165.1 cm Matthew Lemus DO Work Phone: [facility] 07-07-2023 10:35-0500 Body mass index (BMI) [Ratio] 25.61 kg/m2 Matthew Lemus DO Work Phone: [facility] 07-07-2023 10:35-0500 Body temperature 97.7 [degF] Matthew Lemus Scripped Work Phone: [facility] 07-07-2023 10:35-0500 Body weight 69.81 kg Matthew Lemus Scripped Work Phone: [facility] 07-07-2023 10:35-0500 Diastolic blood pressure 70 mm[Hg] Matthew Lemus Scripped Work Phone: [facility] 07-07-2023 10:35-0500 Heart rate 100 /min Matthew Lemus Scripped Work Phone: [facility] 07-07-2023 10:35-0500 SaO2% (BldA) [Mass fraction] 96 % Matthew Pamelahas DO Work Phone: [facility] 07-07-2023 10:35-0500 Systolic blood pressure 100 mm[Hg] Matthew Yuhas DO Work Phone: [facility] 05-19-2023 15:36-0500 Diastolic blood pressure 59 mm[Hg] DO Matthew Pamelahas Work Phone: [facility] 05-19-2023 15:36-0500 Heart rate 95 /min DO Matthew Pamelahas Work Phone: [facility] 05-19-2023 15:36-0500 Respiratory rate 16 /min DO Matthew Pamelahas Work Phone: [facility] 05-19-2023 15:36-0500 SaO2% (BldA) [Mass fraction] 99 % DO Matthew Pamelahas Work Phone: [facility] 05-19-2023 15:36-0500 Systolic blood pressure 109 mm[Hg] DO Matthew Farmerhas Work Phone: [facility] 05-19-2023 12:39-0500 Body height 165.1 cm DO Matthew Farmerhas Work Phone: [facility] 05-19-2023 12:39-0500 Body weight 70.76 kg DO Matthew Farmerhas Work Phone: [facility] 05-10-2023 11:11-0500 Diastolic blood pressure 78 mm[Hg] Rishi MARSHALL [facility] 05-10-2023 11:11-0500 Heart rate 72 /min Rishi MARSHALL [facility] 05-10-2023 11:11-0500 Systolic blood pressure 117 mm[Hg] Rishi MARSHALL [facility] 04-27-2023 13:30-0500 Body height 166.37 cm Imad Asaad Other [employer] Other 04-27-2023 13:30-0500 Body mass index (BMI) [Ratio] 25.71 kg/m2 Imad Asaad Other [employer] Other 04-27-2023 13:30-0500 Body weight 71.17 kg Imad Asaad Other [employer] Other 02-11-2023 18:20-0400 Body height 166.37 cm Sarah Monica Other [employer] Other 02-11-2023 18:20-0400 Body mass index (BMI) [Ratio] 27.69 kg/m2 Sarah Anderson Other [employer] Other 02-11-2023 18:20-0400 Body temperature 98.1 [degF] Sarah Anderson Other [employer] Other 02-11-2023 18:20-0400 Body weight 76.66 kg Sarah Anderson Other [employer] Other 02-11-2023 18:20-0400 Diastolic blood pressure 78 mm[Hg] Sarah Anderson Other [employer] Other 02-11-2023 18:20-0400 Respiratory rate 18 /min Sarah Anderson Other [employer] Other 02-11-2023 18:20-0400 SaO2% (BldA) [Mass fraction] 99 % Sarah Anderson Other [employer] Other 02-11-2023 18:20-0400 Systolic blood pressure 116 mm[Hg] Sarah Anderson Other [facility] [employer] Other 02-06-2023 07:30-0400 Body temperature 98.1 [degF] DO Matthew Farmerhas Work Phone: [facility] 02-06-2023 07:30-0400 Diastolic blood pressure 60 mm[Hg] DO Matthew Pamelahas Work Phone: [facility] 02-06-2023 07:30-0400 Heart rate 83 /min DO Matthew Pamelahas Work Phone: [facility] 02-06-2023 07:30-0400 Respiratory rate 18 /min DO Matthew Farmerhas Work Phone: [facility] 02-06-2023 07:30-0400 SaO2% (BldA) [Mass fraction] 97 % DO Matthew Farmerhas Work Phone: [facility] 02-06-2023 07:30-0400 Systolic blood pressure 102 mm[Hg] DO Matthew Farmerhas Work Phone: [facility] 02-03-2023 14:17-0400 Body height 165.1 cm DO Matthew Farmerhas Work Phone: [facility] 02-02-2023 23:53-0400 Body weight 74.15 kg DO Matthew Farmerhas Work Phone: [facility] 06-30-2022 23:12-0500 Diastolic blood pressure 56 mm[Hg] Courtney Vaughan MD [facility] 06-30-2022 23:12-0500 Heart rate 88 /min Courtney Vaughan MD Work Phone: [facility] [employer] 06-30-2022 23:12-0500 Respiratory rate 16 /min Courtney Vaughan MD Work Phone: [employer] 06-30-2022 23:12-0500 Systolic blood pressure 100 mm[Hg] Courtney Vaughan MD Work Phone: [employer] 06-30-2022 22:21-0500 Body height 165.1 cm Courtney Vaughan MD Work Phone: [employer] 06-30-2022 21:13-0500 SaO2% (BldA) [Mass fraction] 98 % Courtney Vaughan MD Work Phone: [employer] 06-30-2022 18:31-0500 Body mass index (BMI) [Ratio] 28.96 kg/m2 Courtney Vaughan MD Work Phone: [employer] 06-30-2022 18:31-0500 Body weight 78.93 kg Courtney Vaughan MD Work Phone: [employer] 06-30-2022 18:27-0500 Body temperature 98.4 [degF] Courtney Vaughan MD Work Phone: [employer] 06-17-2022 17:10-0500 Diastolic blood pressure 65 mm[Hg] [facility] [employer] 06-17-2022 17:10-0500 Systolic blood pressure 114 mm[Hg] [facility] [employer] [facility] 06-17-2022 17:10-0500 Systolic blood pressure 110 mm[Hg] Bridgette Ortega [place] [employer] [facility] 06-17-2022 17:00-0500 Body height 166.37 cm Bridgette Ortega [facility] [employer] [facility] 06-17-2022 17:00-0500 Body mass index (BMI) [Ratio] 28.43 kg/m2 Bridgette Ortega [place] [employer] [facility] 06-17-2022 17:00-0500 Body surface area Derived from formula 1.91 m2 Bridgette [place] [employer] 06-17-2022 17:00-0500 Body weight 78.7 kg Bridgette Ortega [employer] 06-17-2022 17:00-0500 Body weight 0.1 {percentile} [employer]idgette [employer] 06-17-2022 17:00-0500 Diastolic blood pressure 70 mm[Hg] Bridgette [employer] 06-17-2022 17:00-0500 Heart rate 72 /min [facility]idgette [facility] 06-17-2022 17:00-0500 Systolic blood pressure 118 mm[Hg] Bridgette [facility] 06-15-2022 17:35-0500 Body temperature 98.1 [degF] Maricel [employer] 06-15-2022 17:35-0500 Body weight 77.57 kg Maricel [employer] 06-15-2022 17:35-0500 Diastolic blood pressure 62 mm[Hg] [employer] 06-15-2022 17:35-0500 Heart rate 80 /min [employer] 06-15-2022 17:35-0500 Respiratory rate 16 /min [employer] [facility] 06-15-2022 17:35-0500 Systolic blood pressure 110 mm[Hg] [employer] 05-17-2022 11:45-0500 SaO2% (BldA) [Mass fraction] 98 % [employer] 05-17-2022 10:59-0500 Body height 166.37 cm Maricel [employer] 05-17-2022 10:59-0500 Body mass index (BMI) [Ratio] 28.19 kg/m2 Maricel [employer] 05-17-2022 10:59-0500 Body surface area Derived from formula 1.9 m2 Maricel [employer] 05-17-2022 10:59-0500 Body temperature 98.5 [degF] Maricel [employer] 05-17-2022 10:59-0500 Body weight 78.02 kg Maricel [employer] 05-17-2022 10:59-0500 Body weight 0.1 {percentile} [employer] 05-17-2022 10:59-0500 Diastolic blood pressure 60 mm[Hg] [employer] 05-17-2022 10:59-0500 Heart rate 90 /min Maricel [employer] 05-17-2022 10:59-0500 Respiratory rate 18 /min Maricel [employer] 05-17-2022 10:59-0500 Systolic blood pressure 112 mm[Hg] Maric[employer] 02-10-2022 20:45-0400 Diastolic blood pressure 64 mm[Hg] DO Matthew Miltons Work Phone: [facility] 02-10-2022 20:45-0400 Heart rate 81 /min DO Matthew Pamelahas Work Phone: [facility] 02-10-2022 20:45-0400 Respiratory rate 16 /min DO Matthew Pamelahas Work Phone: [facility] 02-10-2022 20:45-0400 SaO2% (BldA) [Mass fraction] 99 % DO Matthew Lemus Work Phone: [facility] 02-10-2022 20:45-0400 Systolic blood pressure 100 mm[Hg] DO Matthew Lemus Work Phone: [facility] 02-10-2022 14:17-0400 Body height 165.1 cm DO Matthew Lemus Work Phone: [facility] 02-10-2022 14:17-0400 Body weight 81.64 kg DO Matthew Lemus Work Phone: [facility] 02-09-2022 10:01-0400 Body height 166.37 cm Kaleigh Qranio 02-09-2022 10:01-0400 Diastolic blood pressure 64 mm[Hg] Kaleigh Guevara [employer] 02-09-2022 10:01-0400 Heart rate 120 /min Kaleigh Guevara [employer] 02-09-2022 10:01-0400 Systolic blood pressure 118 mm[Hg] Kaleigh Ismael [employer] [facility] 01-29-2022 11:30-0400 Body height 166.37 cm Bridgette Ortega [employer] 01-29-2022 11:30-0400 Diastolic blood pressure 62 mm[Hg] Bridgette [facility] [employer] [employer] 01-29-2022 11:30-0400 Heart rate 100 /min Bridgette Ortega [employer] 01-29-2022 11:30-0400 Systolic blood pressure 114 mm[Hg] Bridgette Lewis [facility] 08-29-2022 10:30-0400 Body height 166.37 cm Tae Natarajan Other [employer] Other 01-25-2022 10:30-0400 Body mass index (BMI) [Ratio] 29.49 kg/m2 Tae Stanleyrer Other [employer] Other 01-25-2022 10:30-0400 Body temperature 97.8 [degF] Tae Natarajan Other [employer] Other 01-25-2022 10:30-0400 Body weight 81.65 kg Tae Stanleyreaugie Other [employer] Other 01-25-2022 10:30-0400 Diastolic blood pressure 64 mm[Hg] Tae Tsaiaugie Other [employer] Other 01-25-2022 10:30-0400 SaO2% (BldA) [Mass fraction] 99 % Tae Natarajan Other [employer] Other 01-25-2022 10:30-0400 Systolic blood pressure 110 mm[Hg] Tae Stanleyrer Other [employer] Other 01-19-2022 10:59-0400 Body height 166.37 cm Bridgette Ortega [facility] [employer] 01-19-2022 10:59-0400 Body mass index (BMI) [Ratio] 29.5 kg/m2 Bridgette [employer] 01-19-2022 10:59-0400 Body surface area Derived from formula 1.94 m2 Bridgette Dejesushard [employer] 01-19-2022 10:59-0400 Body weight 81.65 kg Bridgette Ortega [employer] 01-19-2022 10:59-0400 Diastolic blood pressure 72 mm[Hg] Bridgette Ortega [employer] 01-19-2022 10:59-0400 Heart rate 112 /min Bridgette Ortega [employer] 01-19-2022 10:59-0400 Systolic blood pressure 114 mm[Hg] Bridgette [employer] 10-11-2021 18:26-0400 Diastolic blood pressure 77 mm[Hg] Matthew Lemus Work Phone: [employer] 10-11-2021 18:26-0400 Systolic blood pressure 130 mm[Hg] Matthew Lemus Work Phone: [employer] 10-11-2021 14:00-0400 Body mass index (BMI) [Ratio] 28.46 kg/m2 Matthew Lemus Work Phone: [employer] 10-11-2021 14:00-0400 Body temperature 97.81 [degF] Matthew Lemus Work Phone: [employer] 10-11-2021 14:00-0400 Body weight 77.56 kg Matthew Lemus Work Phone: [employer] 10-11-2021 14:00-0400 Heart rate 95 /min Matthew Lemus Work Phone: [employer] 10-11-2021 14:00-0400 Respiratory rate 16 /min Matthew Lemus Work Phone: [employer] 10-11-2021 14:00-0400 SaO2% (BldA) [Mass fraction] 98 % Matthew Lemus Work Phone: [employer] 09-29-2021 13:04-0400 Blood Pressure Location Rishi ROLANDO [facility] [place] 09-29-2021 13:04-0400 Diastolic blood pressure 83 mm[Hg] Rihsi MARSHALL [facility] [place] 09-29-2021 13:04-0400 Heart rate 100 /min Rishi MARSHALL [facility] [place] 09-29-2021 13:04-0400 Systolic blood pressure 124 mm[Hg] Rishi MARSHALL [facility] [place] 09-04-2021 09:22-0400 Blood Pressure Location Rishi MARSHALL [facility] [place] 09-04-2021 09:22-0400 Diastolic blood pressure 67 mm[Hg] Rishi MARSHALL [facility] [place] 09-04-2021 09:22-0400 Heart rate 78 /min Rishi MARSHALL [facility] 09-04-2021 09:22-0400 Respiratory rate 16 /min Rishi MARSHALL [facility] [place] 09-04-2021 09:22-0400 Systolic blood pressure 97 mm[Hg] [facility] 03-16-2020 15:12-0400 BMI (Body Mass Index) 25.96 kg/m2 [place] 03-16-2020 15:12-0400 Body Temperature 99 [degF] Catracho Oh [facility], [place] 03-16-2020 15:12-0400 Body weight 70.76 kg Catracho Oh [facility] [place] 03-16-2020 15:12-0400 BP Diastolic 69 mm[Hg] [facility] [place] 03-16-2020 15:12-0400 BP Systolic 125 mm[Hg] [facility] [place] 03-16-2020 15:12-0400 Pulse (Heart Rate) 77 /min [facility] 03-16-2020 15:12-0400 Pulse Oximetry 99 % [facility] [place] 03-16-2020 15:12-0400 Respiratory Rate 18 /min Catracho Oh [facility], [place] 10-05-2019 13:30-0400 Body Temperature 98.1 [degF] [place] 10-05-2019 13:30-0400 BP Diastolic 72 mm[Hg] [place] 10-05-2019 13:30-0400 BP Systolic 110 mm[Hg] [place] 10-05-2019 13:30-0400 Pulse (Heart Rate) 76 /min [place] 10-05-2019 13:30-0400 Pulse Oximetry 100 % [place] 10-05-2019 13:30-0400 Respiratory Rate 18 /min [place] 10-05-2019 10:26-0400 BMI (Body Mass Index) 24.37 kg/m2 [place], [place] 10-05-2019 10:26-0400 Body weight 68.49 kg [place] 10-05-2019 10:26-0400 Height 167.6 cm [place] Encounters Encounter Date Encounter Type Care Provider Facility Start: 02-09-2024 End: 02-09-2024 ambulatory [facility] Start: 02-09-2024 Encounter for [facility] adult medical examination without abnormal findings [facility] Start: 01-23-2024 End: 01-24-2024 [facility]: [facility]-23-[facility]24 End: 01-23-2024 Emergency department patient [facility] Start: 01-16-2024 End: 01-16-2024 Departed Referred DO Matthew Farmerjulien Work Phone: [facility] Start: 01-16-2024 End: 01-16-2024 ambulatory RON BIANCA Not Available Start: 01-11-2024 End: 01-11-2024 Emergency department patient visit [facility] Start: 01-10-2024 End: 01-10-2024 ambulatory [facility] Start: 01-10-2024 End: 01-10-[address] [facility] Start: 01-07-2024 End: 01-08-2024 Emergency department patient visit [place] [facility] Start: 12-29-2023 End: 12-29-2023 Patient encounter procedure DO Matthew Farmerjulien Work Phone: [facility] Work Phone: Start: 12-29-2023 End: 12-29-2023 ambulatory DO Matthew Lemus Work Phone: [facility] Work Phone: Start: 12-29-2023 ambulatory [facility] Start: 12-06-2023 End: 12-06-2023 ambulatory [facility] Start: 11-21-2023 End: 11-21-2023 ambulatory [facility] Start: 11-20-2023 End: 11-20-2023 Emergency department patient visit [facility] Start: 11-19-2023 End: 11-20-2023 Emergency department patient visit IFTIKHAR CURRY [facility] Start: 11-17-2023 End: 11-17-2023 Emergency department patient visit BRIDGETTE LEWIS [facility] Start: 11-08-2023 End: 11-08-2023 ambulatory Rishi MARSHALL Facility:[facility] [place] Start: 11-08-2023 End: 11-08-2023 Patient encounter procedure Rishi MARSHALL [facility] [place] Start: 11-08-2023 End: 11-08-2023 ambulatory RON BIANCA Not Available Start: 11-01-2023 End: 11-01-2023 ambulatory RON BIANCA Not Available Start: 09-27-2023 End: 09-27-2023 ambulatory Rishi MARSHALL Facility:[facility] Start: 09-27-2023 End: 09-27-2023 Patient encounter procedure Rihsi MARSHALL [facility] Start: 08-04-2023 End: 08-04-2023 ambulatory AUDELIA FABY Not Available Start: 07-27-2023 End: 07-27-2023 ambulatory RON BIANCA Not Available Start: 07-07-2023 End: 07-07-2023 ambulatory MATTHEW Maury [facility] Start: 07-07-2023 End: 07-07-2023 Office outpatient visit 25 minutes [facility] DO Work Phone: [facility] Comment on above: Bipolar 1 disorder ( [facility]) (Primary Dx); Oropharyngeal dysphagia; Generalized anxiety disorder with panic attacks Start: 07-04-2023 End: 07-04-2023 ambulatory RON BIANCA Not Available Start: 06-29-2023 End: 06-29-2023 ambulatory RON BIANCA Not Available Start: 06-13-2023 End: 06-13-2023 ambulatory RON BIANCA Not Available Start: 06-02-2023 End: 06-02-2023 ambulatory JORGE LAMAS [facility] Start: 05-19-2023 End: 05-19-2023 Admission to same day surgery center DO Matthew Lemus Work Phone: [facility] Work Phone: Start: 05-19-2023 End: 05-19-2023 ambulatory DO Matthew Lemus Work Phone: [facility] Work Phone: Start: 05-17-2023 End: 05-17-2023 ambulatory Imad Asaad Other [employer] Other Start: 05-17-2023 Telephone encounter Imad Asaad [facility] Start: 05-12-2023 End: 05-12-2023 Patient encounter procedure DO Matthew Lemus Work Phone: [facility] [place] Work Phone: Start: 05-12-2023 End: 05-12-2023 ambulatory DO Matthew Lemus Work Phone: [facility] Work Phone: Start: 05-10-2023 End: 05-10-2023 ambulatory Rishi MARSHALL Facility:[facility] [place] Start: 05-10-2023 End: 05-10-2023 Patient encounter procedure Rishi MARSHALL [facility] Start: 04-27-2023 End: 04-27-2023 ambulatory Imad Asaad Other [employer] Other Start: 04-27-2023 Office outpatient ne w 45 minutes Imad Asaad [facility] Start: 04-14-2023 End: 04-14-2023 ambulatory BRIDGETTE LEWIS Facility:[id number] Start: 03-10-2023 End: 03-10-2023 Emergency department patient visit BRIDGETTE LEWIS [facility] Start: 02-11-2023 End: 02-11-2023 ambulatory Sarah Anderson Other [facility] [id number] Other Start: 02-11-2023 Office outpatient visit 15 minutes Sarah Anderson [facility] Start: 02-03-2023 Telephone encounter Christine Macias DO Work Phone: Gastroenterology Comment on above: Appointment Start: 02-02-2023 End: 02-06-2023 Evaluation and management of inpatient DO Matthew Lemus Work Phone: [address] Work Phone: Start: 02-02-2023 ambulatory Casper Arteaga Facility:[facility] Start: 09-23-[address] RON VALENZUELA . Facili ty:H1 Start: 09-16-2022 End: 09-16-[address] BRIDGETTE KRAUSE . Facility:[facility] Start: 09-04-2022 End: 09-04-2022 ambulatory CHUY MCNAMARA Facility:[facility] Start: 08-30-2022 End: 08-31-[address] RON VALENZUELA . Facility:[facility] Start: 08-17-2022 End: 08-18-[address] RON VALENZUELA . Facility:[facility] Start: 07-21-2022 End: 07-21-[address] RON VALENZUELA . Facility:[facility] Start: 07-20-2022 End: 07-21-[address] RON VALENZUELA . Facility:[facility] Start: 07-06-2022 End: 07-06-[address] MATTHEW LEMUS Facility:[facility] Start: 06-30-2022 End: 07-01-2022 Emergency department patient visit Courtney Vaughan MD Work Phone: [facility] Comment on above: Hyperemesis [...] Office consultation new/estab patient 60 min Maricel Staffodr Other [facility] Office Start: 04-30-2022 End: 05-01-[address] MATTHEW LEMUS Facility:[facility] Start: 04-08-2022 End: 04-09-[address] MATTHEW LEMUS Facility:[facility] Start: 03-29-2022 Lab Bridgette lindsay Other [facility] Office Start: 03-22-2022 End: 03-23-[address] MATTHEW LEMUS Facility:[facility] Start: 03-17-2022 Lab Kaleigh Hernandez ams Other [facility] Office Start: 03-03-2022 End: 03-04-[address] MATTHEW LEMUS Facility:[facility] Start: 02-10-2022 End: 02-10-2022 Admission to same day surgery center DO Matthew Lemus Work Phone: [facility]-Interventional Radiology Start: 02-09-2022 Patient encounter procedure Kaleigh Guevara [facility] Start: 02-09-2022 Periodic preventive med est patient 18-39 yrs Kaleigh Guevara Other [facility] Office Start: 02-04-2022 Encounter for genera l adult medical examination without abnormal findings Bridgette Lewis [facility] Start: 02-04-2022 Lab Bridgette lindsay Other [facility] Office Start: 02-04-2022 Office Services Kaleigh Hernandez ams Other [facility] Office Start: 01-29-2022 Office outpatient visit 15 minutes Bridgette Lewis Other [facility] Office Start: 01-25-2022 End: 01-25-2022 ambulatory Tae Natarajan Other [place] [employer] Other Start: 01-25-2022 Office outpatient ne w 45 minutes Tae MCCORMICK [facility] Start: 01-19-2022 Office outpatient ne w 30 minutes Bridgette Lewis Other [facility] Office Start: 12-17-2021 Encounter for genera l adult medical examination without abnormal findings [facility] Start: 12-04-2021 End: 12-05-[address] MATTHEW LEMUS Facility:[facility]1 Start: 11-14-2021 End: 11-14-[address] MATTHEW LEMUS Facility:[facility]1 Start: 10-12-2021 End: 10-12-2021 Subsequent hospital visit by physician Matthew Lemus Work Phone: [facility] Laboratory Start: 10-11-2021 End: 10-11-2021 Emergency department patient visit Matthew Lemus Work Phone: [facility] ED Comment on above: Lower abdominal pain (Primary Dx) Start: 10-09-2021 End: 10-10-[address] MATTHEW LEMUS Facility:[facility]1 Start: 09-29-2021 End: 09-29-2021 Patient encounter procedure Rishi MARSHALL [facility] Start: 09-04-2021 End: 09-04-2021 Patient encounter procedure Rishi MARSHALL [facility] Start: 03-16-2020 End: 03-16-2020 Emergency department patient visit Catracho Parisi Work Phone: [facility] ED Comment on above: Viral URI with cough (Primary Dx) Start: 03-07-2020 End: 03-07-2020 Subsequent hospital visit by physician Sona Covid Screening Schedule SONA Covcintia Screening Comment on above: Acute frontal sinusi tis, recurrence not specified Start: 03-03-2020 End: 03-03-2020 Subsequent hospital visit by physician Lisseth MAGALLANES Laboratory Comment on above: Gross hematuria Start: 10-12-2019 End: 10-15-2019 Patient encounter procedure [facility] Start: 10-12-2019 End: 10-14-2019 Subsequent hospital visit by physician Juan A Laguerre Room 2 [facility] Nuclear Medicine Comment on above: Intractable nausea a nd vomiting Start: 10-05-2019 End: 10-05-2019 Patient encounter procedure [facility] Start: 10-05-2019 End: 10-05-2019 Subsequent hospital visit by physician Toño Blanc Work Phone: [facility] Start: 10-03-2019 End: 10-04-2019 Patient encounter procedure BRIANA RUBIO [facility] Start: 10-03-2019 End: 10-03-2019 Subsequent hospital visit by physician Lisseth [place] [place] [facility] Start: 10-02-2019 End: 10-02-2019 Subsequent hospital visit by physician Tonio Shelley19 Pat Screening Schedule [facility] Pre-Admit Testing Comment on above: No Show Start: 02-08-2019 End: 02-10-2019 Subsequent hospital visit by physician Khalida Grey Dr Room 2 [facility] Radiology Comment on above: Gross hematuria; Urgency of urination Start: 02-06-2019 End: 02-06-2019 Subsequent hospital visit by physician Lisseth MAGALLANES Laboratory Comment on above: Gross hematuria; Urgency of urination Start: 01-15-2019 End: 01-15-2019 Subsequent hospital visit by physician Lisseth MAGALLANES Laboratory Comment on above: Dysuria; Gross hematuria Procedures Date Procedure Procedure Detail Performing Clinician Start: 12-29-2023 Ultrasound elastography of liver DO Matthew Lemus Work Phone: Start: 07-07-2023 Adult depression screening [...] Lewis Start: 02-10-2022 Abdominal aortogram DO Matthew Farmerjulien Work Phone: Start: 02-09-2022 Docrev cur meds by [facility] Kaleigh de la vega Start: 02-04-2022 Comprehensive metabolic panel Kaleigh camp Start: 02-04-2022 Erythrocyte mean corpuscular volume determination Kaleigh Ismael Start: 02-04-2022 Lipid panel Kaleigh Ismael Start: 02-04-2022 Radiologic exam chest 2 views Bridgette sanford Start: 02-04-2022 Thyroid stimulating hormone measurement Kaleigh Guevara Start: 02-04-2022 Urinalysis, automated Kaleigh Guevara Start: 01-29-2022 Docrev cur meds by [facility] Bridgette mcarthur Start: 01-19-2022 Docrev cur meds by [facility] Bridgette mcarthur Start: 01-19-2022 Ketorolac tromethamine inj [...] 10-11-2021 Urine test visual color cmprsn meths [facility] [employer] Work Phone: Start: 09-29-2021 Cystoscopy Rishi MARSHALL Start: 03-16-2020 Radiologic exam chest single view Willia m M Parisi Work Phone: Start: 03-03-2020 Urnls dip stick/tablet reagent auto microscopy Venancio Delgado Work Phone: Start: 10-12-2019 Hepatobil syst imag inc gb w/pharma intervenj TÑOO BLANC Start: 10-12-2019 Hepatobil syst imag inc [...] TOÑO BLANC Start: 10-05-2019 NOTIFY PHYSICIAN (SPECIFY) LUNDBERG KASSIDY ANNCY Start: 10-05-2019 NURSING COMMUNICATION TOÑO BLANC Start: 10-05-2019 VITAL SIGNS TOÑO BLANC Start: 10-05-2019 INSERT PERIPHERAL IV TOÑO BLANC Start: 10-05-2019 Urine test visual color cmprsn meths TOÑO BLANC Start: 10-05-2019 Urine test visual color cmprsn meths Toño Blanc Work Phone: Start: 10-02-2019 COVID-19 BRIANA RUBIO Start: 10-02-2019 COVID-19 Brian Messi Work Phone: Start: 02-08-2019 Radiologic exam [...] Td Vaccines (10 - Td or Tdap) [facility] Start: 04-09-2026 HIV screen HIV screen [place] Comment on above: Postponed from 2012 (Unavailable) Start: 04-09-2026 HIV screening HIV screen [facility] Comment on above: Postponed from 2012 (Unavailable) Start: 11-10-2025 DTaP/Tdap/Td vaccine (5 - Td or Tdap) DTaP/Tdap/Td vaccine (5 - Td or Tdap) [facility] Start: 11-10-2025 DTaP/Tdap/Td vaccine (6 - Tdap) DTaP/Tdap/Td vaccine (6 - Tdap) [place] Start: 07-07-2024 Adult BMI Screening Adult BMI Screening [facility] Start: 07-07-2024 Depression Screening Depression Screening [facility] Start: 07-07-2024 Tobacco Screening Tobacco Screening [facility] Start: 01-16-2024 [facility] Start: 12-29-2023 [facility] Start: 05-19-2023 [facility] Start: 02-06-2023 [facility] Start: 02-02-2023 Hospital admission [facility] Start: 01-28-2023 COVID-19 Vaccine () COVID-19 Vaccine () [facility] Start: 01-28-2023 Influenza vaccination [facility] Start: 08-09-2022 Lipid panel Lipid panel [facility] Start: 08-09-2022 Transferase alanine amino alt sgpt ALT [facility] Start: 08-09-2022 Transferase aspartate amino ast sgot AST [facility] Start: 06-21-2022 Iv infusion hydration initial 31 min-1 hour IV HYDRATION,INITIAL,31 MINUTES TO 1 HOUR [facility] Start: 06-17-2022 Basic metabolic panel calcium total Chem 8 [facility] Start: 06-15-2022 Brncdilat rspse spmtry pre&post-brncdilat admn Spirometry with bronchodilator [facility] Start: 05-30-2022 DEPRESSION ASSESSMENT DEPRESSION ASSESSMENT [facility] Start: 05-17-2022 Nitric oxide gas determination FENO [facility] Start: 04-03-2022 Depression Monitoring Depression Monitoring [facility] Start: 03-29-2022 Gonadotropin chorionic quantitative Beta HCG Quantitative [facility] Start: 03-17-2022 Gonadotropin chorionic quantitative Beta HCG Quantitative [facility] Start: 02-10-2022 [facility] Work Phone: Start: 02-04-2022 Assay of thyroid stimulating hormone tsh TSH [facility] Start: 02-04-2022 Blood count complete automated CBC PLATELET COUNT; AUTOMATED [facility] Start: 02-04-2022 Comprehensive metabolic panel Comp [facility] Start: 02-04-2022 Lipid panel Lipid panel [facility] Start: 02-04-2022 Urnls dip stick/tablet rgnt auto w/o microscopy UA [facility] Start: 02-04-2022 Chest PA & LAT [facility] Start: 01-19-2022 Therapeutic prophylactic/dx injection subq/im Sub Q/ IM injection [facility] Start: 12-28-2021 Influenza vaccination Flu vaccine (#1) [facility] Start: 12-23-2021 Skin test tuberculosis intradermal PPD (Skin test; tuberculosis, intradermal) [employer] Start: 07-29-2021 COVID-19 Vaccine (3 - Booster for Pfizer series) COVID-19 Vaccine (3 - Booster for Pfizer series) [facility] Start: 05-12-2021 COVID-19 Vaccine (5 - Booster) COVID-19 Vaccine (5 - Booster) [facility] Start: 03-03-2020 End: 03-03-2020 Office Visit 03/03/2020 Office Visit Urology Jose Lala MD [address], [address] [place] [address] [facility] Start: 02-07-2020 Chlamydia screen Chlamydia screen [place], [place] Start: 02-07-2020 Screening for Chlamydia trachomatis Chlamydia screen [facility] Start: 01-29-2020 Influenza vaccination [place] Start: 11-04-2019 Chlamydia screen Chlamydia screen [place] Start: 10-05-2019 End: 10-05-2019 Hospital Encounter [facility] Comment on above: EGD ESOPHAGOGASTRODUODENOSCOPY Start: 02-20-2019 End: 02-20-2019 Office Visit 02/20/2019 Office Visit 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, 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 [address] [place] [id number] [facility] Start: 02-08-2019 End: 02-08-2019 Appointment 02/08/2019 Appointment Radiology [facility] Start: 01-28-2019 Influenza vaccination Flu vaccine (#1) [place] Start: 2018 Cervical cancer screen Cervical cancer screen [place], [place] Start: 2018 PAP TESTING PAP TESTING [facility] Start: 2018 Screening for malignant neoplasm of cervix [facility] Start: 2016 Urine microalbumin profile DTAP,TDAP,TD (1 - Tdap) [facility] Start: 2015 Adult BMI Follow Up Plan Adult BMI Follow Up Plan [facility] Start: 2015 Hepatitis C screening Hepatitis C screen [facility] Start: 2015 HEPATITIS C SCREENING HEPATITIS C SCREENING [facility] Start: 2015 HIV SCREENING HIV SCREENING [facility] Start: 02-05-2014 Varicella vaccine (2 of 2 - 13+ 2-dose series) Varicella vaccine (2 of 2 - 13+ 2-dose series) [facility] Start: 2012 HPV vaccine (1 - Female 3-dose series) HPV vaccine (1 - Female 3-dose series) [place] Start: 2011 PEDS TO ADULT TRANSITION ANNUAL ASSESSMENT PEDS TO ADULT TRANSITION ANNUAL ASSESSMENT [facility] Start: 2010 Varicella Vaccine (1 of 2 - 13+ 2-dose series) Varicella Vaccine (1 of 2 - 13+ 2-dose series) [place] Start: 2009 PEDS TO ADULT TRANSITION INITIAL DISCUSSION PEDS TO ADULT TRANSITION INITIAL DISCUSSION [facility] Start: 2008 HPV vaccine (1 - 2-dose series) HPV vaccine (1 - 2-dose series) [facility] Start: 2006 HPV VACCINE (1 - 2-dose series) HPV VACCINE (1 - 2-dose series) [facility] Start: 2003 Pneumococcal 0-64 years Vaccine (1 - PCV) Pneumococcal 0-64 years Vaccine (1 - PCV) [facility] Start: 2003 Pneumococcal 0-64 years Vaccine (1 of 1 - PPSV23) Pneumococcal 0-64 years Vaccine (1 of 1 - PPSV23) [place] Start: 1998 Varicella vaccine (1 of 2 - 2-dose childhood series) Varicella vaccine (1 of 2 - 2-dose childhood series) [place] Start: 1997 COVID-19 VACCINE (#1) COVID-19 VACCINE (#1) [facility] Start: 1997 HEPATITIS B (1 of 3 - 3-dose series) HEPATITIS B (1 of 3 - 3-dose series) [facility] End: 01-15-2019 Bacteria identified Cx Nom (U) Urine Culture Microbiology Routine Dysuria Gross hematuria 1 Occurrences starting 01/15/2019 until 01/15/2019 [place] Comment on above: 1 Occurrences starting 01/15/2019 until 01/15/2019 End: 02-06-2019 C.trachomatis N.gonorrhoeae DNA, Urine C.trachomatis N.gonorrhoeae DNA, Urine Microbiology Routine Gross hematuria Urgency of urination 1 Occurrences starting 02/06/2019 until 02/06/2019 [place] Comment on above: 1 Occurrences starting 02/06/2019 until 02/06/2019 C.trachomatis N.gono rrhoeae DNA, Urine C.trachomatis N.gonorrhoeae DNA, Urine Microbiology Routine Gross hematuria Urgency of urination 02/06/2019 12:22 PM EDT [place] COVID-19 [place], [place] End: 10-02-2019 COVID-19 COVID-19 Lab Routine One Time for 1 Occurrences starting 10/02/2019 until 10/02/2019 [place] Comment on above: One Time for 1 Occurrences starting 09/2019 until 10/02/2019 End: 03-07-2020 COVID-19 Ambulatory COVID-19 Ambulatory Lab Routine Acute frontal sinusitis, recurrence not specified 1 Occurrences starting 03/07/2020 until 03/07/2020 [place] Comment on above: 1 Occurrences starting 03/07/2020 until 03/07/2020 COVID-19 Ambulatory COVID-19 Amb ulatory Lab Routine Acute frontal sinusitis, recurrence not specified 03/07/2020 11:12 AM EDT [place] End: 03-16-2020 COVID-19, PCR COVID-19, PCR Lab Routine One Time for 1 Occurrences starting 03/16/2020 until 03/16/2020 [place] Comment on above: One Time for 1 Occurrences starting 02/27 until 03/16/2020 End: 03-03-2020 Culture, Urine Culture, Urine Microbiology Routine Gross hematuria 1 Occurrences starting 03/03/2020 until 03/03/2020 [place] Comment on above: 1 Occurrences starting 03/03/2020 until 03/03/2020 Culture, Urine [place] End: 06-30-2022 Culture, [facility] Work Phone: Comment on above: One Time for 1 Occurrences starting 05/2022 until 06/30/2022 H. PYLORI DETECTION [facility] Comment on above: Release Upon Ordering for 1 Occurrences starting 10/05/2019 Initiate Oxygen Therapy Protocol Initiate Oxygen Therapy Protocol Respiratory Care Routine Daily until discontinued starting 10/05/2019 [facility] Comment on above: Daily until discontinued starting 2019 Patient Education Depression, Ad ult (DC) [facility] Behavioral Health DC Instructions [facility] Work Phone: Patient referral [facility] Work Phone: Phase I & II - metered glucose P hase I & II - metered glucose Point of Care Testing Routine As Needed until discontinued starting 10/05/2019 [facility] Comment on above: As Needed until discontinued starting End: 10-05-2019 POC Urine Qual POC Urine Qual Point of Care Testing Routine One Time for 1 Occurrences starting 10/05/2019 until 10/05/2019 [facility] Comment on above: One Time for 1 Occurrences starting 12/2019 until 10/05/2019 Surgical Pathology Surgical Path ology Lab Routine Release Upon Ordering for 1 Occurrences starting 10/05/2019 [facility] Comment on above: Release Upon Ordering for 1 Occurrences starting 10/05/2019 End: 02-06-2019 Urine culture clean catch Urine culture clean catch Microbiology Routine Gross hematuria Urgency of urination 1 Occurrences starting 02/06/2019 until 02/06/2019 [facility] Comment on above: 1 Occurrences starting 02/06/2019 until 02/06/2019 Urine culture clean catch Urine culture clean catch Microbiology Routine Gross hematuria Urgency of urination 02/06/2019 12:22 PM EDT [facility] Immunizations Immunization Date Immunization Notes Care Provider Fa francis 09-23-2022 RHO(D) immune globulin- IV or IM Matthew Lemus DO Work Phone: [facility] 09-17-2022 RHO(D) immune globulin- IV or IM Matthew Lemus DO Work Phone: [facility] 09-17-2022 tetanus toxoid, reduced diphtheria toxoid, and acellular pertussis vaccine, adsorbed Rishi MARSHALL [facility] 01-05-2022 [employer] 12-23-2021 [facility] [employer] 04-28-2021 influenza virus vaccine, unspecified formulation Rishi MARSHALL [facility] 04-28-2021 influenza, injectabl e, quadrivalent, preservative free Matthew Lemus DO Work Phone: [facility] [employer] [facility] 03-17-2021 COVID-19, Pfizer, 30mcg/0.3ml Bridgette Lewis [employer] 02-28-2021 SARS-CoV-2 (COVID-19 ) mRNA BNT-162b2 vax Rishi MARSHALL [facility] 02-27-2021 SARS-CoV-2 (COVID-19 ) Ad26 vaccine, recombinant Rishi MARSHALL [facility] 02-08-2021 SARS-CoV-2 (COVID-19 ) mRNA BNT-162b2 vax Rishi MARSHALL [facility] 01-28-2021 SARS-CoV-2 (COVID-19 ) Ad26 vaccine, recombinant Rishi MARSHALL [facility] 01-20-2021 COVID-19, Pfizer, 30mcg/0.3ml Bridgette Lewis [employer] 05-02-2018 influenza virus vaccine, unspecified formulation Lisseth [place] 01-27-2016 [facility]enza Vaccine, [facility] [place] 01-27-2016 influenza virus vaccine, unspecified formulation Rishi MARSHALL [facility] 01-27-2016 influenza, seasonal, injectable, preservative free Matthew Lemus DO Work Phone: [facility] 12-29-2015 hepatitis B vaccine, adult dosage Rishimaricel MARSHALL [facility] 12-17-2015 hepatitis B vaccine, adult dosage Matthew Lemus DO Work Phone: [facility] 12-17-2015 hepatitis B vaccine, unspecified formulation [facility] [place] [place] 11-26-2015 hepatitis B vaccine, adult dosage Rishimaricel MARSHALL [facility] 11-11-2015 diphtheria, tetanus toxoids and acellular pertussis vaccine [facility] 11-11-2015 tetanus toxoid, reduced diphtheria toxoid, and acellular pertussis vaccine, adsorbed Rishi MARSHALL [facility] 01-08-2014 tetanus toxoid, reduced diphtheria toxoid, and acellular pertussis vaccine, adsorbed Rishi MARSHALL [facility] 01-08-2014 varicella virus vaccine Rishi MARSHALL [facility] 10-17-2002 diphtheria, tetanus toxoids and acellular pertussis vaccine, unspecified formulation Matthew Lemus DO Work Phone: [facility] 10-17-2002 DTaP, unspecified formulation Rishi MARSHALL [facility] 10-17-2002 measles, mumps and rubella virus vaccine [facility], [place] 10-17-2002 poliovirus vaccine, inactivated [facility] [place] 10-17-2002 poliovirus vaccine, unspecified formulation Matthew Lemus DO Work Phone: [facility] 10-17-2002 tetanus toxoid, reduced diphtheria toxoid, and acellular pertussis vaccine, adsorbed Matthew Lemus DO Work Phone: [facility] 05-17-1998 haemophilus influenz ae type b vaccine, conjugate unspecified formulation Matthew Lemus DO Work Phone: [facility] 05-17-1998 Hib, unspecified [facility] [place] 05-17-1998 poliovirus vaccine, inactivated [facility], [place] 03-27-1998 diphtheria, tetanus toxoids and acellular pertussis vaccine [facility], [place] 03-27-1998 diphtheria, tetanus toxoids and acellular pertussis vaccine, unspecified formulation Matthew Lemus DO Work Phone: [facility] 03-27-1998 DTaP, unspecified formulation Rishi MARSHALL [facility] 03-27-1998 haemophilus influenz ae type b vaccine, conjugate unspecified formulation Matthew Lemus DO Work Phone: [facility] 03-27-1998 haemophilus influenz ae type b vaccine, HbOC conjugate Matthew Lemus DO Work Phone: [facility] 03-27-1998 Hib, unspecified [facility] [place] 03-27-1998 measles, mumps and rubella virus vaccine [facility], [place] 03-27-1998 tetanus toxoid, reduced diphtheria toxoid, and acellular pertussis vaccine, adsorbed Matthew Lemus DO Work Phone: [facility] 1997 diphtheria, tetanus toxoids and acellular pertussis vaccine [facility], [place] 1997 diphtheria, tetanus toxoids and acellular pertussis vaccine, unspecified formulation Matthew Lemus DO Work Phone: [facility] 1997 DTaP, unspecified formulation Rishi ROLANDO [facility] 1997 haemophilus influenz ae type b conjugate and Hepatitis B vaccine Matthew Lemus DO Work Phone: [facility] 1997 haemophilus influenz ae type b vaccine, conjugate unspecified formulation Matthew Lemus DO Work Phone: [facility] 1997 hepatitis B vaccine, adult dosage Matthew Lemus Work Phone: [facility] Work Phone: 1997 hepatitis B vaccine, unspecified formulation [place], [place] 1997 Hib, unspecified [place] 1997 poliovirus vaccine, inactivated [place], [place] 1997 tetanus toxoid, reduced diphtheria toxoid, and acellular pertussis vaccine, adsorbed Matthew Lemus DO Work Phone: [facility] 1997 trivalent poliovirus vaccine, live, oral Matthew Lemus DO Work Phone: [facility] 1997 diphtheria, tetanus toxoids and acellular pertussis vaccine [place] 1997 diphtheria, tetanus toxoids and acellular pertussis vaccine, unspecified formulation Matthew Lemus DO Work Phone: [facility] 1997 DTaP, unspecified formulation Rishi MARSHALL [facility] 1997 haemophilus influenz ae type b vaccine, HbOC conjugate Matthew Lemus DO Work Phone: [facility] 1997 tetanus toxoid, reduced diphtheria toxoid, and acellular pertussis vaccine, adsorbed Matthew Lemus DO Work Phone: [facility] 1997 trivalent poliovirus vaccine, live, oral Matthew Lemus DO Work Phone: [facility] 1997 diphtheria, tetanus toxoids and acellular pertussis vaccine Dipakkvivian [facility], [place] 1997 diphtheria, tetanus toxoids and acellular pertussis vaccine, unspecified formulation Matthew Lemus DO Work Phone: [facility] 1997 DTaP, unspecified formulation Rishi MARSHALL [facility] 1997 haemophilus influenz ae type b vaccine, conjugate unspecified formulation Matthew Lemus DO Work Phone: [facility] 1997 Hib, unspecified [facility], [place] 1997 Hib, unspecified formulation Rishi MARSHALL [facility] 1997 poliovirus vaccine, inactivated [facility] [place] [facility] tetanus toxoid, reduced diphtheria toxoid, and acellular pertussis vaccine, adsorbed Matthew Lemus DO Work Phone: [facility] 1997 trivalent poliovirus vaccine, live, oral Matthew Lemus DO Work Phone: [facility] 1997 hepatitis B vaccine, adult dosage Matthew Lemus Work Phone: [facility] Work Phone: 1997 hepatitis B vaccine, pediatric or pediatric/adolescent dosage Rishi MARSHALL [facility] 1997 hepatitis B vaccine, unspecified formulation [facility], [place] 1997 hepatitis B vaccine, adult dosage Matthew Lemus Work Phone: [facility] Work Phone: 1997 hepatitis B vaccine, pediatric or pediatric/adolescent dosage Rishi MARSHALL [facility] [place] 1997 hepatitis B vaccine, unspecified formulation Lisseth Johnson [facility] [place], [place] Payers Date Payer Category Payer Worker's Compensation [id number] Unknown 2023 Unknown [id number] 2022 Medicaid [id number] 2015 Unknown BCBS BC[place] - [place] P PO xxxxxxxxxxxx 2015-Present [address] [place] [address] xxxxxxxxxxxx [id number]. [id number] 1997 Unknown [id number] 2.16.840.1.270439.3.579.2. 177 1997 Unknown [id number] 2.16.840.1.042899.3.579.2. 177 1997 Unknown [id number] 2.16.840.1.584650.3.579.2. 175 1997 Unknown [id number] 2.16.840.1.992682.3.579.2. 593 1997 Unknown [id number] 2.16.840.1.902195.3.579.2. 593 1997 Unknown [id number] 2.16.840.1.692039.3.579.2. 593 1997 Unknown [id number] 2.16.840.1.461124.3.579.2. 593 1997 Unknown [id number] 2.16.840.1.714174.3.579.2. 593 1997 Unknown [id number] 2.16.840.1.396749.3.579.2. 593 1997 Unknown [id number] 2.16.840.1.851116.3.579.2. 593 1997 Unknown [id number] 2.16.840.1.873269.3.579.2. 593 1997 Unknown [id number] 2.16.840.1.014773.3.579.2. 593 1997 Unknown [id number] 2.16.840.1.128611.3.579.2. 593 1997 Unknown [id number] 2.16.840.1.779473.3.579.2. 593 1997 Unknown [id number] 2.16.840.1.784859.3.579.2. 593 1997 Unknown [id number] 2.16.840.1.564208.3.579.2. 593 1997 Unknown [id number] 2.16.840.1.271810.3.579.2. 593 1997 Unknown [id number] 2.16.840.1.830224.3.579.2. 593 1997 Unknown [id number] 2.16.840.1.700683.3.579.2. 593 1997 Unknown [id number] 2.16.840.1.200795.3.579.2. 593 1997 Unknown [id number] 2.16.840.1.397366.3.579.2. 593 1997 Unknown [id number] 2.16.840.1.552208.3.579.2. 593 1997 Unknown [id number] 2.16.840.1.257038.3.579.2. 727 1997 Unknown [id number] 2.16.840.1.978832.3.579.2. 727 1997 Unknown [id number] 2.16.840.1.114133.3.579.2. 727 1997 Unknown [id number] 2.16.840.1.648266.3.579.2. 727 1997 Unknown [id number] 2.16.840.1.277770.3.579.2. 1286 1997 Unknown [id number] 2.16.840.1.031891.3.579.2. 173 1997 Unknown [id number] 2.16.840.1.979410.3.579.2. 173 1997 Unknown [id number] 2.16.840.1.380065.3.579.2. 173 1997 Unknown [id number] 2.16.840.1.433146.3.579.2. 173 1997 Unknown [id number] 2.16.840.1.896212.3.579.2. 173 1997 Unknown [id number] 2.16.840.1.563708.3.579.2. 173 1997 Unknown [id number] 2.16.840.1.597648.3.579.2. 1259 1997 Unknown [id number] 2.16.840.1.384730.3.579.2. 1259 1997 Unknown [id number] 2.16.840.1.588903.3.579.2. 1259 1997 Unknown [id number] 2.16.840.1.888404.3.579.2. 1259 1997 Unknown [id number] 2.16.840.1.837614.3.579.2. 1259 1997 Unknown [id number] 2.16.840.1.371381.3.579.2. 1259 1997 Unknown [id number] 2.16.840.1.556988.3.579.2. 1259 1997 Unknown [id number] 2.16.840.1.370032.3.579.2. 1259 1997 Unknown [id number] 2.16.840.1.432745.3.579.2. 1286 1997 Unknown [id number] 2.16.840.1.777654.3.579.2. 1286 1997 Unknown [id number] 2.16.840.1.538730.3.579.2. 1286 1997 Unknown [id number] 2.16.840.1.285347.3.579.2. 1286 1997 Unknown [id number] 2.16.840.1.697384.3.579.2. 1286 1997 Unknown [id number] 2.16.840.1.042295.3.579.2. 1286 1997 Unknown [id number] 2.16.840.1.409881.3.579.2. 1286 1997 Unknown [id number] 2.16.840.1.385673.3.579.2. 1286 1997 Unknown [id number] 2.16.840.1.861396.3.579.2. 1286 1997 Unknown [id number] 2.16.840.1.659519.3.579.2. 1286 1959 Self-pay [id number] 1959 Unknown [id number] 1959 Unknown [id number] 2.16.840.1.429917.3.441 1959 Unknown [id number] Unknown [id number] 2.16.840.1.500981.3.579.2. 531 Unknown [id number] 2.16.840.1.246334.3.579.2. 531 Unknown [id number] 2.16.840.1.900505.3.579.2. 531 Unknown [id number] 2.16.840.1.249981.3.579.2. 531 Unknown [id number] 2.16.840.1.663576.3.579.2. 531 Unknown [id number] 2.16.840.1.224223.3.579.2. 531 Social History Date Type Detail Facility Start: 02-06-2019 End: 05-19-2023 Tobacco smoking status NHIS [place] smoker [place] Start: 02-06-2019 End: 04-26-2022 Alcohol intake No [place] Start: 1995 Sex Assigned At Not on file [place] Start: 07-31-2019 End: 10-05-2019 Alcohol intake Current non-drinker of alcohol (finding) [place] Exposure to SARS-CoV -2 (event) Unable to assess [place] Start: 03-03-2020 End: 11-10-2021 Tobacco use and exposure Never used [place], [place] Start: 03-03-2020 End: 07-07-2023 Alcohol intake Current drinker of alcohol (finding) [place] Start: 03-03-2020 Alcohol Comment occasional [place] Start: 10-01-2021 End: 06-30-2022 Exposure to SARS-CoV-2 (event) Not sure [place] Tobacco smoking status Never [facility] Start: 04-03-2021 History SDOH Financial 5 [employer] Work Phone: Start: 04-03-2021 History SDOH Food Worry 1 [employer] Work Phone: Start: 04-03-2021 History 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 2 [employer] Work Phone: Start: *Tobacco [facility] Start: 1995 Sex Assigned At Female [facility] Tobacco smoking stat us LAIS Tobacco smoking consumption unknown [facility] Start: 11-10-2021 Tobacco smoking status NHIS Ex-smoker [facility] History of tobacco use Current smoker [facility] History of tobacco use Tobacco U se Types Packs/Day Years Used Date Smoking Tobacco: Former Vaping/E-cigarettes Smokeless Tobacco: Never [facility] Start: 04-26-2022 End: 07-07-2023 History of Social function [facility] Do you belong to any clubs or organizations such as hinduism groups, unions, fraMonstrous or athletic groups, or school groups? No [facility] Are you now , , , , never or living with a partner? Living with partner [facility] How often to you hav e a drink containing alcohol? Never [facility] How hard is it for y ou to pay for the very basics like food, housing, medical care, and heating Not very hard [facility] Do you feel stress - tense, restless, nervous, or anxious, or unable to sleep at night because your mind is troubled all the time - these days [OSQ] Rather much [facility] Start: 04-26-2022 Education 16 [facility] Start: 06-07-2018 Alcohol Comment occasionally [facility] Goals Date Patient Goal Desired Activity /State Functional Status Date Assessment Result Facility 05-10-2023 Functional Status N/A [facility] 02-06-2023 Functional status Patient at [facility] Work Phone: Mental Status Date Assessment Result Facility 02-06-2023 Cognitive function Cognitive Sta tus Patient at Baseline [facility] Work Phone: Clinical Notes 09-04-2021 to 07-07-2023 Matthew Lemus, DO - 07/07/2023 10:30 AM EST Note Date & Type Note Facility 07-07-2023 History of Present illness Narrative IM PROGRESS NOTE Patient - Lulú Gaitan Age - 28 y.o. - 1995 ASSESSMENT & PLAN 1. Bipolar 1 disorder ([facility]) -overall stable -undergoing medical regimen change. Will [...] disorder and anxiety and was admitted to [facility] for evaluation and adjustment of her medications. [...] have CT scan and upper GI at [facility]. Both were termed normal except for changes related to her recent kidney stone and bladder manipulation. A review of systems was negative except for the following: General: sleep disturbance Psychiatric: anxiety, mood swings, and now seeing a new mental health provider (Nelly Pederson) out of [place]. Has recently had wholesale changes to her [...] Testing No results found. Matthew Lemus DO., [facility] Office: [phone] documented in this encounter [facility] [employer] [facility] 05-19-2023 History and physical note Note Date/Time May 19, 2023 1:38pm [facility] [address] [place] [address] Gastroenterology H&P Signed Patient: Lulú Gaitan MR#: [id number] : 1995 Acct:[id number] Age/Sex: 28 / F Adm Date: 3 Loc: Room: Type: [facility] Attending Dr: Fany Ceballos MD Copies to: Fany Ceballos MD Matthew LemusMyron Date of Service: 05/19/2023 HISTORY & PHYSICAL: [...] <Electronically signed by Fany Ceballos MD> 05/19/231337 [facility] Work Phone: 1(938) 966-747312-21-2023 [facility]* Encounter Date Diagnosis Assessment Notes Treatment Notes Treatment Clinical Notes Apr, Abnormal abdominal C T scan (ICD-10 - R93.5) Apr, Pyelonephritis of left kidney (ICD-10 - N12) [employer] Other 12-12-2023 Hospital Discharge instructions Patient Education [...] Follow these instructions at home: Medicines Take vsce-qwc-vzcwwat and prescription medicines only as told by [...] or the blood stops without treatment. Take kmsh-hmb-kyjlqvm and prescription medicines only as told by your health care provider. Drink enough fluid to keep your urine pale yellow. This information is not intended to replace advice given to you by your health care provider. Make sure you discuss any questions you have with your health care provider. Document Revised: 01/14/2021 Document Reviewed: 01/14/2021 [employer] Patient Education 2022 [employer]. Follow Up Care 05/06/2023 07:59:50 With:ROLANDO DEVLIN, Rishi Ghosh, URL Address: [facility] [address] , [place] [address]- When:Within 4 Month(s) Comments:w/ELYSE [facility] 11-29-2023 Evaluation note* Encounter Date Diagnosis Assessment Notes Treatment Notes Treatment Clinical Notes Mar, Irritable bowel syndrome with constipation (ICD-10 - K58.1) Mar, Delayed gastric emptying (ICD-10 - K30) Mar, Vomiting (ICD-10 - R11.10) [employer] Other 09-15-2023 Evaluation note* Encounter Date Diagnosis [...] no improvement in 2 to 3 days [employer] Other 09-10-2023 Hospital Discharge instructions Additional Instructions Important Contact Information You can call [facility] at [phone] any time day or night if you [...] Text Line (available 20/12) text 4HOPE to [phone] [facility] Hope Line (available 8 a.m. Midnight) call [phone] ([phone]) [facility] Work Phone: 1(388) 798-709909-09-2023 Progress note Author Karri Kamara [facility] February 05, 2023 12:00pm Note Date/Time February 05, 2023 12:00pm [facility] [address] [place] [address] Psychiatry Progress Note Signed Patient: Lulú Gaitan MR#: [id number] : 1995 Acct:[id number] Age/Sex: 27 / F Adm Date: 3 Loc: Room: [address] [place] [address] Type : ADM IN Attending Dr: Karri [...] explained Documented By: Karri Kamara MD 02/05/23 1156 Signed By: <Electronically signed by Karri Kamara MD> 02/05/23 1200 [facility] Work Phone: 1(357) 313-567509-08-2023 Progress note Author Karri Kamara [facility] February 04, 2023 1:43pm Note Date/Time February 04, 2023 1:44pm [facility] [address] [place] [address] Psychiatry Progress Note Signed Patient: Lulú Gaitan MR#: [id number] : 1995 Acct:[id number] Age/Sex: 27 / F Adm Date: 3 Loc: Room: [address] [place] [address] Type : ADM IN Attending Dr: Karri [...] explained Documented By: Karri Kamara MD 02/04/23 0866 Signed By: <Electronically signed by Karri Kamara MD> 02/04/23 1343 [facility] Work Phone: 1(921) 415-694209-07-2023 Miscellaneous Notes* Telephone Encounter - Viviana David [...] list full name of hospital or facility)? [facility] If the patient had a gastric emptying [...] G/J Tube?No Preferred phone number for contact: [phone] [facility] History and physical note Author Karri Kamara [facility] February 03, 2023 11:58am Note Date/Time February 03, 2023 11:58am [facility] [address] [place] [address] Psychiatry H&P Signed Patient: Lulú Gaitan MR#: [id number] : 1995 Acct:[id number] Age/Sex: 27 / F Adm Date: 3 Loc: Room: [address] [place] [address] Type: ADM IN Attending Dr: Karri Kamara [...] is now 5 months old. She states thatdaniel delivered her daughter 11 weeks premature and [...] States [facility] and was restarted on [place]. 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 Relationships: Patient states [...] feel like current medical regimen is working [facility] Medical History (Updated 02/03/23 @ 10:00 [...] Cloudy A Urine pH 6.0 Ur Specific [place] 1.027 Urine Protein 30 H Urine Glucose [...] Color Urine Appearance Urine pH Ur Specific [place] Urine Protein Urine Glucose (UA) Urine Ketones [...] explained Documented By: Karri Kamara MD 02/03/23 2644 Signed By: <Electronically signed by Karri Kamara MD> 02/03/23 1158 [facility] Work Phone: 1(796) 414-258302-02-2023 History of Present illness Narrative* Jenna Elliott [...] 11:40 PM EST Nurse at bedside from 6426-4708. Nurse pal[pates pt's abdomen when pt feeling [...] at this time. documented in [facility] [employer] Work Phone: 1([phone]) 844-170902-02-2023 Hospital Discharge instructions* Discharge Instructions* Jenna Elliott RN - 07/01/2022 12:27 AM EST OUTPATIENT DISCHARGE Dr. Miguel Aguilera [facility] Dr. Katelynn Leslie [facility] [address] [facility] [address] [place] or Sam Chyna Prakash [facility] [place] [address] [place] [address] ACTIVITY LIMITATIONS: ( x )Up [...] AND DELIVERY . documented in this encounterBON [employer] Phone: 1(309) 807-813609-14-2022 History and physical note Author Tae Natarajan [facility] February 10, 2022 5:06pm Note Date/Time February 10, 2022 5:06pm [facility] [address] [place] [address] Vascular Surgery H&P Signed Patient: Lulú Gaitan MR#: [id number] : 1995 Acct:[id number] Age/Sex: 26 / F Adm Date: 2 Loc: Room: Type: [facility] Attending Dr: Tae Natarajan MD Copies to: MD Matthew Hernandez,~ Date of Service: 02/10/2022 HPI History of Present Illness Chief complaint: Hematuria HPI: Ms. Gaitan is a 26 year old female being evaluated by Dr. Marshall for recurrent gross hematuria. Other evaluation including CT scan has been negative and Dr. Marshall requested diagnostic arteriogram and venogram. [facility] Vaccinated for COVID-19?: Yes Medical History [...] mg PO DAILY 02/10/22 [History Confirmed 02/10/22] ujslgbbmic-qjieqzujsutjw-uhkexxli 50 mg-300 mg-40 mg capsule (Fioricet) 1 [...] signed by MD Tae Natarajan> 02/10/22 1706 [facility] Work Phone: 1([phone]) 310-723508-29-2022 Evaluation note* Encounter Date Diagnosis Assessment Notes [...] ahead with arteriogram and venogram as requested. [employer] Other 05-15-2022 Hospital Discharge instructions* Instructions* Christine Vazquez PA-C - 10/11/2021 Take ibuprofen ygvz-kln-qxpkmrs 600 mg 3 times daily as needed for pain. Follow- up with your primary care provider and discuss additional testing if symptoms not improved. Return to the emergency room for any worsening symptoms. * Attachments The following attachments cannot be sent through Care Everywhere. * Pelvic Pain (Cook Islander) documented in this encounterMercy Health Willard HospitalLifeGuard Games Work Phone: 1(119) 953-652805-03-2022 Hospital Discharge instructions Patient Education 09/29/2021 13:37:25 [...] Follow these instructions at home: Medicines Take sgwh-umf-sdrhuet and prescription medicines only as told by [...] or the blood stops without treatment. Take nbht-xlb-twhbmzi and prescription medicines only as told by your health care provider. Drink enough fluid to keep your urine clear or pale yellow. This information is not intended to replace advice given to you by your health care provider. Make sure you discuss any questions you have with your health care provider. Document Released: 05/16/2006 Document Revised: 10/10/2019 Document Reviewed: 06/18/2017 [employer] Patient Education 2019 [employer]. Follow Up Care 09/22/2021 14:13:42 With:ROLANDO DEVLIN, Rishi Ghosh, URL Address: [facility] [address] [place] [address]- Business (1) When: Unknown [facility] 04-08-2022 Hospital Discharge instructions Patient Education 09/04/2021 [...] including vitamins, herbs, eye drops, creams, and dask-jbw-ycykwok medicines. Any problems you or family members [...] provider tells you to take them. ?Taking gkhy-zvp-mmimycz medicines, vitamins, herbs, and supplements. Follow instructions [...] Follow these instructions at home: Medicines Take lkvu-kmc-wbgvcse and prescription medicines only as told by [...] 05/13/2001 Document Revised: 05/08/2019 Document Reviewed: 05/08/2019 Elsevier Patient Education 2020 [employer]. Follow Up Care 08/07/2021 15:47:45 With:ROLANDO DEVLIN, Rishi Augie, URL Address: [address] [place] [address]- When: Unknown Comments:will schedule Cysto [facility] [place] discharge summary Author Karri Kamara [facility] February 06, 2023 11:04am Note Date/Time February 06, 2023 11:04am [facility] [address] [place] [address] Discharge Summary Signed Patient: Lulú Gaitan MR#: [id number] : 1995 Acct:[id number] Age/Sex: 27 / F Adm Date: 3 Loc: Room: [address] [place] [address]: Karri Kamara MD Copies to: [...] States she [facility] health and was restarted on Latuda. 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 Midnight) call [phone] ([phone]) Stand Alone Forms: Work/School Release Form Prescriptions: [...] Follow Up: [facility] [Other] (fax:[phone]) [facility] [Outside] Matthew Lemus DO [Primary Care Provider] - (Please contact for any medical needs or concerns) Documented By: Karri Kamara MD 02/06/23 1103 Signed By: <Electronically signed by Karri Kamara MD> 02/06/23 110 [facility] Work Phone: Evaluation + Plan note No data available for this section [facility] evaluation + Plan note Future Appointments Appointment Date:02/05/2022 09:45:00 AM Scheduled Provider:Rishi MARSHALL MD Location:[facility] Appointment Type:URO Office Visit [facility] Evaluation + Plan note Future Appointments Appointment Date:09/27/2023 10:15:00 AM Scheduled Provider:Rishi MARSHALL MD Location:[facility] Appointment Type:URO Office Visit [facility] Evaluation note* Diagnosis Lower abdominal pain- Primary Abdominal pain, other specified site documented in this encounter [employer] Work Phone: evaltoacre note* Diagnosis Onset Date Resolution Status Hematuria acute [facility] Work Phone: evaluation note* Diagnosis Hyperemesis- Primary Persistent vomiting Pelvic cramping Unspecified symptom associated with female genital organs documented in this encounter MARTHA RITCHIE [employer] Work Phone: evaluation note* Diagnosis Onset Date Resolution Status Bipolar 1 disorder acute Depression acute Major depressive disorder, recurrent acute Suicidal ideation acute [facility] Work Phone: Evaluation noteNo assessment information available [facility] Work Phone: Evaluation note* Diagnosis Bipolar 1 disorder ([facility])- Primary Oropharyngeal dysphagia Dysphagia, oropharyngeal phase Generalized anxiety disorder with panic attacks documented in this encounter [facility] N[facility]ative - Reported* Type Description Date Medical History migraine headache Medical History endometriosis Medical History PCOS Medical History borderline personality disorder Medical History bipolar Medical History anxiety Medical History chronic depression Surgical History laparoscopy x3 female Surgical History umbilical hernia repair Hospitalization History 1 [facility] 2020 Hospitalization History as a child for stomach p ain [employer] [facility] general Narrative - Reported* Type Description Date Medical History migraine headache Medical History endometriosis Medical History PCOS Medical History borderline personality disorder Medical History bipolar Medical History anxiety Medical History chronic depression Surgical History laparoscopy x3 female Surgical History umbilical hernia repair Hospitalization History 1 [facility] 2020 Hospitalization History as a child for stomach p ain Hospitalization History LATUDA REACTION 1 [facility] 02/02/2023 [facility] Other Hospital Discharge instructions Additional Instructions Hold Metformin for 2 days. No heavy lifting of anything over 5 pounds. No pushing or pulling. No vigorous activity. Remove dressing in 24 hours.[facility] Work Phone: Hospital Discharge instructions Additional Instructions [...] problems. -Follow up with PCP. -Office number [phone]. [facility] Work Phone: Hospital Discharge instructions No data available for this section [facility] InstructionsNot on filedocumented in this encounter [facility] SystemProgress note No data available for this section [facility] Assessments Diagnosis Gross hematuria Urgency of urination Diagnosis Gross hematuria Urgency of urination Diagnosis Gross hematuria Diagnosis Acute frontal sinusitis, recurrence not specified Diagnosis Viral URI with cough Acute upper respiratory infections of unspecified site Diagnosis Intractable nausea and vomiting Persistent vomiting Diagnosis Dysuria Gross hematuria Advance Directives No Advanced Directives Records FoundDocuments on File Type Date Recorded Patient Creel Cleaner Expl anation Advance Directives and Living Will Power of Crust Sorter Documents on File Type Date Recorded Patient Creel Cleaner Expl anation Advance Directives and Living Will Power of Crust Sorter Documents on File Type Date Recorded Patient Creel Cleaner Expl anation ACP-Advance Directive ACP-Power of Crust Sorter Advance Directive Response Recorded Date/ Time Advance Directives No January 08, 2021 7:10pm Advance Directive Response Recorded Date/ Time Advance Directives No January 08, 2021 6:10pm Latest Code Status on File Code Status Date Activated Date Inactivated Comments Full Code 09/16/2022 12:58 PM 09/23/2022 7:09 PM Discharge Instructions * Instructions* Raina Martin, KATHERINE [...] Where can you learn more? Go to [email or web address] and sign in to your [employer] account. Enter J454 in the Search Health Information box to learn more about Upper GI Endoscopy: What to Expect at Home. . 6442-9788 [employer]. Care instructions adapted under license by [employer]. This care instruction is for use with your licensed healthcare professional. If you have questions about a medical condition or this instruction, always ask your healthcare professional. [employer] disclaims any warranty or liability for your use of this information. Content Version: 9.9.069102; Last Revised: July 19, 2012 Upper GI [...] Where can you learn more? Go to [email or web address] and sign in to your [employer] account. Enter J454 in the Search Health Information box to learn more about Upper GI Endoscopy: What to Expect at Home. . 6136-0294 [employer]. Care instructions adapted under license by [employer]. This care instruction is for use with your licensed healthcare professional. If you have questions about a medical condition or this instruction, always ask your healthcare professional. [employer] disclaims any warranty or liability for your use of this information. Content Version: 9.9.772854; Last Revised: July 19, 2012 Upper GI [...] Where can you learn more? Go to [email or web address] and sign in to your [employer] account. Enter J454 in the Search Health Information box to learn more about Upper GI Endoscopy: What to Expect at Home. . 5344-6149 [employer]. Care instructions adapted under license by [employer]. This care instruction is for use with your licensed healthcare professional. If you have questions about a medical condition or this instruction, always ask your healthcare professional. [employer] disclaims any warranty or liability for your use of this information. Content Version: 9.9.109773; Last Revised: July 19, 2012 Upper GI [...] Where can you learn more? Go to [email or web address] and sign in to your [employer] account. Enter J454 in the Search Health Information box to learn more about Upper GI Endoscopy: What to Expect at Home. . 6861-9090 [employer]. Care instructions adapted under license by [employer]. This care instruction is for use with your licensed healthcare professional. If you have questions about a medical condition or this instruction, always ask your healthcare professional. [employer] disclaims any warranty or liability for your use of this information. Content Version: 9.9.652698; Last Revised: July 19, 2012 Upper GI [...] Where can you learn more? Go to [email or web address] and sign in to your [employer] account. Enter J454 in the Search Health Information box to learn more about Upper GI Endoscopy: What to Expect at Home. . 9973-3267 [employer]. Care instructions adapted under license by [employer]. This care instruction is for use with your licensed healthcare professional. If you have questions about a medical condition or this instruction, always ask your healthcare professional. [employer] disclaims any warranty or liability for your use of this information. Content Version: 9.9.331239; Last Revised: July 19, 2012 Upper GI [...] Where can you learn more? Go to [email or web address] and sign in to your [employer] account. Enter J454 in the Search Health Information box to learn more about Upper GI Endoscopy: What to Expect at Home. . [employer]lab, [employer]. Care instructions adapted under license by [employer]. This care instruction is for use with your licensed healthcare professional. If you have questions about a medical condition or this instruction, always ask your healthcare professional. [employer] disclaims any warranty or liability for your use of this information. Content Version: 9.9.283761; Last Revised: July 19, 2012 Upper GI [...] the day after the test, use an bfez-sqx-ofxhqze spray to numb your throat. Follow-up care [...] Where can you learn more? Go to [email or web address] and sign in to your [employer] account. Enter J454 in the Search Health Information box to learn more about Upper GI Endoscopy: What to Expect at Home. If you do not have an account, please click on the Sign Up Now link. Current as of: January 07, 2019Content Version: 12.4 6343-0978 [employer]. Care instructions adapted under license by [employer]. If you have questions about a medical condition or this instruction, always ask your healthcare professional. [employer] disclaims any warranty or liability for your use of this information. documented in this encounter* Attachments The following attachments cannot be sent through Care Everywhere. * URI (Upper Respiratory Infection): Viral (Cook Islander) documented in this encounter Summary Purpose Family [...] SCAN W EJECTION FRACTION Toño Blanc MD [address] [place] [address] Chief Complaint and Reason for Visit Chief [...] To Contact Diagnoses Dysphagia DX DYSPHAGIA Procedures VT ESOPHAGOGASTRODUODENOSCOPY TRANSORAL DIAGNOSTIC EGD ESOPHAGOGASTRODUODENOSCOPY Toño Blanc MD [address] [place] [address] [facility] Reason Comments Cough pt states onset last week. PT states she is taking Prednisone and Keflex for a sinus infection Status Reason Specialty Diagnoses / Procedures Referred By Contact Referred To Contact Not Required - [facility] Diagnoses Nausea with vomiting, unspecified Procedures HC NM HEPATOBILIARY IMAGING W PHARM Toño Blanc MD [address] [place] [address] [facility] Nuclear Medicine [address] [place] [id number] Reason Comments Abdominal Cramping onset this am [...] section and content) DATE CREATED AUTHOR 10/15/2019 [facility] DATE CREATED AUTHOR AUTHOR'S ORGANIZ ATION 03/07/2020 [facility] DATE CREATED AUTHOR AUTHOR'S ORGANIZ ATION 07/27/2021 [facility] DATE CREATED AUTHOR AUTHOR'S ORGANIZ ATION 09/24/2022 [facility] DATE CREATED AUTHOR AUTHOR'S ORGANIZ ATION 02/12/2023 [facility] DATE CREATED AUTHOR AUTHOR'S ORGANIZ ATION 11/09/2023 [facility] DATE CREATED AUTHOR AUTHOR'S ORGANIZ ATION 01/12/2024 [facility] DATE CREATED AUTHOR AUTHOR'S ORGANIZ ATION 01/15/2024 [facility] DATE CREATED AUTHOR AUTHOR'S ORGANIZ ATION 01/17/2024 [facility] DATE CREATED AUTHOR AUTHOR'S ORGANIZ ATION 01/24/2024 [facility] DATE CREATED AUTHOR AUTHOR'S ORGANIZ ATION 01/25/2024 [facility] DATE CREATED AUTHOR AUTHOR'S ORGANIZ ATION 02/11/2024 [facility] Scheduled Active and Recently Administ [...] Kamara MD Admit Provider, Attending Provider Active Casing In Line Feeder Relationship Specialty Start Date End Date PamelaMatthew [place] [address] PCP - General Internal Medicine 10/11/21 Casing In Line Feeder Relationship Specialty Start Date [place] [address] PCP - General Internal Medicine 10/11/21 Team Status: Inactive Member Role Status Dates Matthew Lemus DO Primary Care Provider Active Tae Natarajan MD Attending Provider Active Casing In Line Feeder Relationship Specialty Start Date End Date Bridgette Lewis MD [address] [place] [address] PCP - General Internal Medicine 06/30/22 Casing In Line Feeder Relationship Specialty Start Date End Date Agustin Ramos [address] [place] [phone] PCP - General 01/27/04 Team Status: Inactive Member Role Status Dates Matthew Lemus DO Primary Care Provider Active Fany Ceballos MD Attending Provider Active Casing In Line Feeder Relationship Specialty Start Date End Date Matthew Lemus DO [address] [place] [address] PCP - General Internal Medicine 12/19/22 Team Status: Inactive Member Role Status Dates Matthew Karineoliva DO Primary Care Provide r, Attending Provider Active Start: December 29, 2023 End: December 29, 2023 Team Status: Inactive Member Role Status Dates Ron Valenzuela DO Attending Provider Active Start : January 16, [...] or prosecute any alcohol or drug abuse patient.[facility] FOR RECORDS PERTAINING TO PATIENTS WHO [...] BE BASED ON THE PRIMARY CLINICAL RECORDS. Clerk. provides no warranty or guarantee of the accuracy or completeness of information in this document.
== END 2024-02-13 16:28 | disposition home or self-care (01) ==
LOC: LAB 16:27
PROVIDERS: PCP Internal Medicine; Visit Provider Obstetrics & Gynecology
DX: Z01.812 Encounter for preprocedural laboratory examination (principal); N92.0 Excessive and frequent menstruation with regular cycle; R10.2 Pelvic and perineal pain; N94.6 Dysmenorrhea, unspecified; N94.10 Unspecified dyspareunia; N80.9 Endometriosis, unspecified
CPT/HCPCS: 36415; 86850; 86900; 86901

== ENCOUNTER 2024-02-15 06:03 | Day surgery (SDC) | payer BC, OTHER, SELFPAY ==
[2024-01-31 10:54] VITALS: BP 114/66; PULSE 84; TEMP 36.4; O2SAT 100; BMI 24.1
[2024-02-15] VITALS (19 sets, daily range): BP systolic 88–116; BP diastolic 49–73; PULSE 62–84; TEMP 36.1–36.8; O2SAT 92–100; BMI 24.5
--- OUTSIDE RECORDS SUMMARY | 2024-02-15 06:09 | XMS_ITS | CCD ---
Author Organization [facility] SHALE PROCESSING TECHNICIAN [facility] Care Team Providers Care Log Data Technician Name Role Phone Lisseth Johnson Primary Care Provider TOÑO BLANC Admitting Unavailable TOÑO BLANC Attending Unavailable LISSETH JOHNSON Primary Care Unavailable TOÑO BLANC Referring Unavailable LISSETH JOHNSON Primary Care Unavailable Lisseth Johnson Primary Care Provider [phone] BRIANA RUBIO Referring Unavailable LISSETH JOHNSON Primary Care Unavailable MATTHEW LEMUS Primary Care Physician [phone] Matthew Lemus Primary Care Provider Unavailable Primary Care Physician Unavailab le Lisa Primary Care Physician Unavailab le Unavailable Primary Care Physician Unavailab Bridgette Bennett Primary Care Physician Julianava ilBridgette Trimble Unavailable Unavailable Tae Natarajan Unavailable Bridgette Lewis Primary Care Physician Unava ilBridgette Trimble Primary Care Physician Unava ilKaleigh Stewart Primary Care Physician DO Matthew Arango Primary Care Provider [phone] MD Tae Natarajan Attending Provider [phone] Kaleigh Guevara Primary Care Physician Bridgette Medina [...] DR PEÑA Attending Unavailable BIANCA ., DR PÑEA Consulting Unavailable BIANCA ., DR PEÑA Admitting [...] Care Provider MD Matthew Leslie Emergency Provider [phone] MD Karri Kamara Admit Provider [phone] MD Karri Kamara Attending Provider Sarah Anderson Unavailable Fany Ceballos Unavailable DO Matthew Lemus Primary Care Provider [phone] MD Fany Ceballos Attending Provider Matthew Lemus DO Primary Care Provider Rishi MARSHALL Attending Unavailable BRIDGETTE LEWIS Primary Care Unavailable Rishi MARSHALL Attending Unavailable MARSHALL, Rishi R Attending Unavailable ARIE, BRIDGETTE Primary Care Unavailable Rishi MARSHALL Attending Unavailable Yudiannes, DO Matthew Primary Care Provider Yujulien, DO Castro Attending Provider [phone] SHIREEN CHAVEZ Referring Unavailable YUHAS, MATTHEW L [...] Admitting Unavailable Yuhas, Matthew Primary Care Unavailable Yuhas, Matthew Attending Unavailable [...] to adverse reactions to drug 07-15-19 15 [place], [place] (17 sources) Erythromycin; Translations: [ERYTHROMYCIN] Drug Allergy 07-15-19 15 Itching, Dermatitis, Rash, Other (See Comments), pain [place], [place] (20 sources) Azithromycin; Translations: [azithromycin] Drug Allergy 06-07-19 19 Unknown (qualifier value), Swelling, Dermatitis, Rash, pain [facility] (6 sources) Bee pollen; Translations: [bee pollen] Drug Allergy Edema (finding) [facility] (6 sources) Bee/Wasp/Ant venom; Translations: [Bee Stings] Drug allergy Unknown (qualifier value) [facility] (14 sources) lamoTRIgine; Translations: [Lamictal] Drug Allergy [facility] (16 sources) lamoTRIgine; Translations: [lamotrigine] Drug Allergy 01-29-20 22 Swelling, Rash, Facial swelling (finding) [facility] (1 source) Azithromycin Drug Allergy [facility] (2 sources) bee venom Drug allergy (disorder) [facility] (1 source) lamoTRIgine Drug Allergy [facility] (11 sources) lurasidone; Translations: [lurasidone] Drug Allergy 02-03-20 Other (See Comments), Suicidal thoughts (finding) [facility] (1 source) Acetaminophen / HYDROcodone; Translations: [acetaminophen-h ydrocodone] Drug Allergy Hallucinations (finding) [facility] (1 source) Azithromycin; Translations: [Zithromax Z-Oscar] Drug Allergy [facility] (3 sources) Acetaminophen; Translations: [acetaminophen] Drug Allergy 12-29-19 Hallucinating [facility] (6 sources) HYDROcodone; Translations: [HYDROCODONE] Drug Allergy 12-29-19 Hallucinating [facility] (3 sources) erythromycin base; Translations: [erythromycin base] Allergy to substance 12-29-19 Rash [facility] (3 sources) Acetaminophen / HYDROcodone; Translations: [HYDROCODONE-JUDIE TAMINOPHEN] Drug Allergy 11-19-19 [facility] (3 sources) BEE VENOM PROTEIN (HONEY BEE); Translations: [BEE VENOM PROTEIN (HONEY BEE)] Propensity to adverse reactions to drug (disorder) 07-15-19 15 [facility] (1 source) Azithromycin Drug Allergy 05-19-20 [facility] (1 source) lamoTRIgine Drug Allergy 05-19-20 [facility] (1 source) lurasidone Drug Allergy 05-19-20 [facility] Medications Current Medications Medication Drug [...] q24hr, # 21 tab(s), Refills(s) 0, Pharmacy: [facility]/pharmacy #[id number], 165, cm, 05/10/23 11:13:00 EST, [...] 2023 12:00am May 18, 2023 2:58pm levonorgestrel 0.685736 mg/hr intrauterine system (1 source) Progestin, Progestin-containing [...] 09/04/21 Status: Ordered take 1 capsule by [facility] once daily in the [...] Daily, # 30 cap(s), Refills(s) 0, Pharmacy: [facility]/pharmacy #[id number], 165, cm, 12/17/21 8:42:00 EDT, [...] 1 capsule by mouth every four hours Ythwzhdpbp-Fzlimwdztuezg-Xdqt (Fioricet) 50-300-40 mg Capsule Discontinued 1 CAP [...] Status: Ordered take 3 tablets by [facility] once daily ARIPiprazole (ABILIFY) 5 MG tablet Take 15 mg by mouth daily 0 Active ascorbic acid 250 mg chewable tablet (17 sources) Vitamin C take 2 tablets by mo [facility] once daily Vitamin C 250 mg [...] procedure, # 2 tab(s), Refills(s) 0, Pharmacy: [facility]/pharmacy #[id number], 165, cm, 12/17/21 8:42:00 EDT, [...] procedure., # 2 cap(s), Refills(s) 0, [facility], 165, cm, 09/04/21 9:50:00 EDT, Height/Length [...] symptomatic., # 2 tab(s), Refills(s) 0, Pharmacy: 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; Translations: [[employer] CURRENT DRUG THERAPY] Onset: 09-20-2022 Episodic Other [...] gap [Moles/Vol] 7 mmol/L Normal 5-15 [facility] Comment on above: Performed By: #### B KEITH, 3040-3, CBCA, LIVR #### [facility] ([id number]) [address] [place] [address] 65272 Calcium [Mass/Vol] 8.5 mg/dL Normal 8.5-10.5 [facility] Comment on above: Performed By: #### B KEITH, 3040-3, CBCA, LIVR #### [facility] ([id number]) [address] [place] [address] 75972 Chloride [Moles/Vol] 108 mmol/L Normal 98-109 [facility] Comment on above: Performed By: #### B KEITH, 3040-3, CBCA, LIVR #### [facility] ([id number]) [address] [place] [address] 84156 CO2 [Moles/Vol] 25 mmol/L Normal 22-32 [facility] Comment on above: Performed By: #### B KEITH, 3040-3, CBCA, LIVR #### [facility] ([id number]) [address] [place] [address] 87158 Creatinine [Mass/Vol] 0.80 mg/dL Normal 0.40-1.00 [facility] Comment on above: Result Comment: METH OD TRACEABLE TO IDMS STANDARD Performed By: #### B KEITH, 3040-3, CBCA, LIVR #### [facility] ([id number]) [address] [place] [address] 90820 eGFR (CKD-EPI) NON-RACE DEPENDENT >90 Normal >59 [facility] Comment on above: Result Comment: Reported eGFR is based on the CKD-EPI 2020 equation that does not use a race coefficient. Performed By: #### B KEITH, 3040-3, CBCA, LIVR #### [facility] ([id number]) [address] [place] [address] 14905 Glucose [Mass/Vol] 100 mg/dL High 65-99 [facility] Comment on above: Performed By: #### B KEITH, 3040-3, CBCA, LIVR #### [facility] ([id number]) [address] [place] [address] 46505 Potassium [Moles/Vol] 3.8 mmol/L Normal 3.5-5.0 [facility] Comment on above: Performed By: #### B KEITH, 3040-3, CBCA, LIVR #### [facility] ([id number]) [address] [place] [address] 78380 Sodium [Moles/Vol] 140 mmol/L Normal 134-146 [facility] Comment on above: Performed By: #### B KEITH, 3040-3, CBCA, LIVR #### [facility] ([id number]) [address] [place] [address], [place] [address] Urea nitrogen [Mass/Vol] 12 mg/dL Normal 5-23 [facility] Comment on above: Performed By: #### B MP, 3040-3, CBCA, LIVR #### [facility] ([id number]) [address] [place] [address] 45622 CBC AND AUTO DIFFon 01-23-20 24 ABSOLUTE BASOPHIL 0.1 X10E9/L Normal 0.0-0.2 [facility] Comment on above: Performed By: #### C BCA, CMP, 46497-6, 88244-0 #### [facility] ([id number]) [address] [place] [address] 14861 ABSOLUTE NEUTROPHIL 3.8 X10E9/L Normal 1.5-6.6 [facility] Comment on above: Performed By: #### C BCA, CMP, 82608-2, 04910-7 #### [facility] ([id number]) [address] [place] [address] 73194 Basophils/100 WBC (Bld) 0.8 % Normal [facility] Comment on above: Performed By: #### C BCA, CMP, 32968-3, 45609-9 #### [facility] ([id number]) [address] [place] [address] 12675 Eosinophils (Bld) [#/Vol] 0.1 10*3/uL Normal 0.0-0.4 [facility] Comment on above: Performed By: #### C BCA, CMP, 45456-2, 81887-5 #### [facility] ([id number]) [address] [place] [address] 00915 Eosinophils/100 WBC (Bld) 0.9 % Normal [facility] Comment on above: Performed By: #### C BCA, CMP, 65039-7, 48417-5 #### [facility] ([id number]) [address] [place] [address] 26448 Erythrocyte distribution width (RBC) [Ratio] 13.2 % Normal 11.5-15.0 [facility] Comment on above: Performed By: #### Franco CHACON CMP, 11571-3, 16610-5 #### [facility] ([id number]) [address] [place] [address] 14471 Hematocrit (Bld) [Volume fraction] 38.9 % Normal 35-47 [facility] Comment on above: Performed By: #### Franco CHACON CMP, 92010-8, 43535-9 #### [facility] ([id number]) [address] [place] [address] 91159 Hemoglobin (Bld) [Mass/Vol] 13.1 g/dL Normal 11.7-15.5 [facility] Comment on above: Performed By: #### Franco CHACON CMP, 29172-4, 48672-1 #### [facility] ([id number]) [address] [place] [address] 54447 Lymphocytes (Bld) [#/Vol] 2.4 10*3/uL Normal 1.0-3.5 [facility] Comment on above: Performed By: #### Franco CHACON CMP, 94200-7, 06087-7 #### [facility] ([id number]) [address] [place] [address] 93772 Lymphocytes/100 WBC (Bld) 34.9 % Normal [facility] Comment on above: Performed By: #### Franco HCACON CMP, 56874-0, 92378-4 #### [facility] ([id number]) [address] [place] [address] 23667 MCH (RBC) [Entitic mass] 30.3 pg Normal 27-34 [facility] Comment on above: Performed By: #### Franco CHACON CMP, 47169-2, 98480-5 #### [facility] ([id number]) [address] [place] [address] 65251 MCHC (RBC) [Mass/Vol] 33.6 g/dL Normal 32-36 [facility] Comment on above: Performed By: #### Franco CHACON, CMP, 18065-2, 59614-6 #### [facility] ([id number]) [address] [place] [address] 11317 MCV (RBC) [Entitic vol] 90 fL Normal 80-100 [facility] Comment on above: Performed By: #### Franco CHACON, CMP, 89874-5, 97450-1 #### [facility] ([id number]) [address] [place] [address] 54301 Monocytes (Bld) [#/Vol] 0.6 10*3/uL Normal 0-0.9 [facility] Comment on above: Performed By: #### Franco BCA, CMP, 02934-2, 00644-4 #### [facility] ([id number]) [address] [place] [address] 54795 Monocytes/100 WBC (Bld) 9.3 % Normal [facility] Comment on above: Performed By: #### Franco CHACON, CMP, 75275-6, 13437-2 #### [facility] ([id number]) [address] [place] [address] 89735 Neutrophils/100 WBC (Bld) 54.1 % Normal [facility] Comment on above: Performed By: #### Franco BCA, CMP, 85505-9, 42000-9 #### [facility] ([id number]) [address] [place] [address] 61846 Platelet mean volume (Bld) [Entitic vol] 8.5 fL Normal 7-12 [facility] Comment on above: Performed By: #### Franco BCA, CMP, 13456-4, 58976-8 #### [facility] ([id number]) [address] [place] [address] 02558 Platelets (Bld) [#/Vol] 342 10*3/uL Normal 150-450 [facility] Comment on above: Performed By: #### C OSWALDO, CMP, 83907-2, 54929-9 #### [facility] ([id number]) [address] [place] [address] 79622 RBC COUNT 4.31 X10E12/L Normal 3.80-5.20 [facility] Comment on above: Performed By: #### C OSWALDO, CMP, 00451-1, 54078-2 #### [facility] ([id number]) [address] [place] [address] 45461 WBC (Bld) [#/Vol] 7.0 10*3/uL Normal 4.0-11.0 [facility] Comment on above: Performed By: #### C OSWALDO, CMP, 40860-6, 81160-6 #### [facility] ([id number]) [address] [place] [address] 70308 HCG ( test) Ql (U)o n 01-23-2024 Beta HCG ( test) Ql (U) Negative Normal NEG [facility] Comment on above: Performed By: #### Franco BCA, CMP, 79127-1, 36064-4 #### [facility] ([id number]) [address] [place] [address] 12512 LIPASEon 01-23-2024 Lipase [Catalytic activity/Vol] 40 U/L Normal 17-40 [facility] Comment on above: Performed By: #### Elvis MP, 3040-3, CBCA, LIVR #### [facility] ([id number]) [address] [place] [address] 39467 LIVER PANELon 01-23-2024 Albumin [Mass/Vol] 4.1 g/dL Normal 3.2-5.3 [facility] Comment on above: Performed By: #### C OSWALDO, CMP, 21169-6, 78086-5 #### [facility] ([id number]) [address] [place] [address] 15378 ALP [Catalytic activity/Vol] 70 U/L Normal 39-130 [facility] Comment on above: Performed By: #### C BCA, CMP, 29388-0, 01017-4 #### [facility] ([id number]) [address] [place] [address] 69389 ALT [Catalytic activity/Vol] 15 U/L Normal 0-31 [facility] Comment on above: Performed By: #### C OSWALDO, CMP, 35769-0, 29969-4 #### [facility] ([id number]) [address] [place] [address] 56527 AST [Catalytic activity/Vol] 15 U/L Normal 0-41 [facility] Comment on above: Performed By: #### C OSWALDO, CMP, 11675-4, 29848-1 #### [facility] ([id number]) [address] [place] [address] 58560 Bilirubin [Mass/Vol] 0.3 mg/dL Normal 0.3-1.2 [facility] Comment on above: Performed By: #### C BCA, CMP, 89910-3, 77790-2 #### [facility] ([id number]) [address] [place] [address] 77646 Bilirubin.indirect [Mass/Vol] mg/dL Normal 0.0-0.4 [facility] Comment on above: Performed By: #### C BCA, CMP, 14101-5, 90046-5 #### [facility] ([id number]) [address] [place] [address] 46767 Protein [Mass/Vol] 7.2 g/dL Normal 6.0-8.0 [facility] Comment on above: Performed By: #### C BCA, CMP, 27352-9, 27681-1 #### [facility] ([id number]) [address] [place] [address] 47849 URN MACROSCOPIC NURon 2023 BILIRUBIN NADYA Negative Normal NEG [facility] Comment on above: Performed By: #### C BCA, CMP, 25060-8, 96685-1 #### [facility] ([id number]) [address] [place] [address] 00773 BLOOD/HGB NADYA Negative Normal NEG [facility] Comment on above: Performed By: #### C BCA, CMP, 17986-9, 74142-3 #### [facility] ([id number]) [address] [place] [address] 89004 GLUCOSE NADYA Negative Normal NEG [facility] Comment on above: Performed By: #### C BCA, CMP, 28314-3, 64008-9 #### [facility] ([id number]) [address] [place] [address] 45551 KETONES NADYA Negative Normal NEG [facility] Comment on above: Performed By: #### C BCA, CMP, 01484-0, 66559-0 #### [facility] ([id number]) [address] [place] [address] [place] [address] LEUKOCYTE ESTERASE NADYA Negative Normal NEG [facility] Comment on above: Performed By: #### C BCA, CMP, 67723-6, 54313-5 #### [facility] ([id number]) [address] [place] [address] 23964 NITRITE NADYA Negative Normal NEG [facility] Comment on above: Performed By: #### C BCA, CMP, 42556-0, 82418-8 #### [facility] ([id number]) [address] [place] [address] 83190 PH NADYA 7.0 Normal 5.0-8.5 [facility] Comment on above: Performed By: #### C PIPO CHACON, 17393-6, 07389-5 #### [facility] ([id number]) [address] [place] [address] 92867 PROTEIN NADYA Negative Normal NEG [facility] Comment on above: Performed By: #### C OSWALDO [facility], 17829-9, 31147-2 #### [facility] ([id number]) [address] [place] [address] 34220 SPECIFIC GRAVITY NADYA 1.025 Normal 1.003-1.035 [facility] Comment on above: Performed By: #### C OSWALDO [facility], 14666-3, 40919-5 #### [facility] ([id number]) [address] [place] [address] 11614 UROBILINOGEN NADYA 0.2 eu/dL Normal <1.1 [facility] Comment on above: Performed By: #### C OSWALDO [facility], 18898-9, 24432-2 #### [facility] ([id number]) [address] [place] [address] 06434 XR SPINE THORACIC 3 VWSon XR SPINE [...] Yoon MD on 01/23/2024 9:09 AM Normal [facility] Pathology Request for Lab Co rpon 01-16-2024 Pathology Request for Lab Neetu Normal [facility] Comment on above: Order Comment: Name Collection Type:: Clean-Voided Midstream Result Comment: See report. Scanned copy available in EMR. PERFORMED BY: [facility] [address] [facility] [place] [address] PATHOLOGIST HOT END OPERATOR MOISES VELASCO M.D. Performed By: #### C UU, UHCG, ADDONUAPLUS, URDS #### [facility] [address] [place] [address] [place] Cult,Urineon 01-13-2024 Cult,Urine Specimen Description .CLEAN CATCH URINE Special Requests Site: Urine Culture NO SIGNIFICANT GROWTH Report Status FINAL 01/13/2024 Normal [facility] Comment on above: Performed By: #### D DEBBI, CDP, CP, MG #### [facility] [address] [place] [id number] Resource Conservation Manager: Cholo Alicea MD CBC with Diffon 01-11-2024 Abs. Basophil 0.04 k/uL Normal 0.00-0.20 [facility] Comment on above: Performed By: #### D DEBBI, CDP, CP, MG #### [address] [place], [place] [address] Resource Conservation Manager: Cholo Alicea MD Abs. Eosinophil <0.03 Normal 0.00-0.44 [facility] Comment on above: Performed By: #### D DEBBI, CDP, CP, MG #### [facility] [address] [place] [address] Resource Conservation Manager: Cholo Alicea MD Abs.Imm.Granulocyte 0.04 k/uL Normal 0.00-0.30 [facility] Comment on above: Performed By: #### D DEBBI, CDP, CP, MG #### [facility] [address] [place], [place] [address] Resource Conservation Manager: Cholo Alicea MD Abs.Neutrophil (Seg) 11.70 k/uL High 1.50-8.10 [facility] Comment on above: Performed By: #### D DEBBI, CDP, CP, MG #### [facility] [address] [place] [address] Dr. [place], [facility] Resource Conservation Manager: Cholo Alicea MD Basophils/100 WBC (Bld) 0 % Normal 0-2 [facility] Comment on above: Performed By: #### D DEBBI, CDP, CP, MG #### [address] [place], [facility] Resource Conservation Manager: Cholo Alicea MD Eosinophils/100 WBC (Bld) 0 % Low 1-4 [facility] Comment on above: Performed By: #### D DEBBI, CDP, CP, MG #### [address] [place], [facility] Resource Conservation Manager: Cholo Alicea MD Erythrocyte distribution width (RBC) [Ratio] 12.1 % Normal 11.8-14.4 [facility] Comment on above: Performed By: #### D DEBBI, CDP, CP, MG #### [address] [place], [facility] Resource Conservation Manager: Cholo Alicea MD Hematocrit (Bld) [Volume fraction] 41.8 % Normal 36.3-47.1 [facility] Comment on above: Performed By: #### D DEBBI, CDP, CP, MG #### [address] [place], [facility] Resource Conservation Manager: Cholo Alicea MD Hemoglobin (Bld) [Mass/Vol] 15.2 g/dL High 11.9-15.1 [facility] Comment on above: Performed By: #### D DEBBI, CDP, CP, MG #### [address] [place] [address] Resource Conservation Manager: Cholo Alicea MD Immature granulocytes/100 WBC (Bld) 0 % Normal 0 [facility] Comment on above: Performed By: #### D DEBBI, CDP, CP, MG #### [address] [place] [address] Resource Conservation Manager: Cholo Alicea MD Lymphocytes (Bld) [#/Vol] 0.77 10*3/uL Low 1.10-3.70 [facility] Comment on above: Performed By: #### D DEBBI, CDP, CP, MG #### [address] [place], [place] [address] Resource Conservation Manager: Cholo Alicea MD Lymphocytes/100 WBC (Bld) 6 % Low 24-43 [facility] Comment on above: Performed By: #### D DEBBI, CDP, CP, MG #### [address] [place], [facility] Resource Conservation Manager: Cholo Alicea MD MCH (RBC) [Entitic mass] 30.5 pg Normal 25.2-33.5 [facility] Comment on above: Performed By: #### D DEBBI, CDP, CP, MG #### [address] [place], [facility] Resource Conservation Manager: Cholo Alicea MD MCHC (RBC) [Mass/Vol] 36.4 g/dL High 28.4-34.8 [facility] Comment on above: Performed By: #### D DEBBI, CDP, CP, MG #### [address] [place], [facility] Resource Conservation Manager: Cholo Alicea MD MCV (RBC) [Entitic vol] 83.8 fL Normal 82.6-102.9 [facility] Comment on above: Performed By: #### D DEBBI, CDP, CP, MG #### [address] [place] [address] Resource Conservation Manager: Cholo Alicea MD Monocytes (Bld) [#/Vol] 0.13 10*3/uL Normal 0.10-1.20 [facility] Comment on above: Performed By: #### D DEBBI, CDP, CP, MG #### [facility] [address] [place], [place] [address] Resource Conservation Manager: Cholo Alicea MD Monocytes/100 WBC (Bld) 1 % Low 3-12 [facility] Comment on above: Performed By: #### D DEBBI, CDP, CP, MG #### [facility] [address] [place] [address] Resource Conservation Manager: Cholo Alicea MD Neutrophil (Seg) 92 % High 36-65 [facility] Comment on above: Performed By: #### D DEBBI, CDP, CP, MG #### [address] [place], [place] 86[address]483 Resource Conservation Manager: Cholo Alicea MD NRBC Automated 0.0 per 100 WBC Normal 0.0 [facility] Comment on above: Performed By: #### D DEBBI, CDP, CP, MG #### [address] [place], [place] [address]83 Resource Conservation Manager: Cholo Alicea MD Platelet mean volume (Bld) [Entitic vol] 10.3 fL Normal 8.1-13.5 [facility] Comment on above: Performed By: #### D DEBBI, CDP, CP, MG #### [facility] [address] [place] [address] [place], [place] [id number] Resource Conservation Manager: Cholo Alicea MD Platelets (Bld) [#/Vol] 377 10*3/uL Normal 138-453 [facility] Comment on above: Performed By: #### D DEBBI, CDP, CP, MG #### [facility] [address] [place] [address] Resource Conservation Manager: Cholo Alicea MD RBC (Bld) [#/Vol] 4.99 10*6/uL Normal 3.95-5.11 [facility] Comment on above: Performed By: #### D DEBBI, CDP, CP, MG #### [facility] [address] [place] [address] Resource Conservation Manager: Cholo Alicea MD WBC (Bld) [#/Vol] 12.7 10*3/uL High 3.5-11.3 [facility] Comment on above: Performed By: #### D DEBBI, CDP, CP, MG #### [facility] [address] [place] [address] Resource Conservation Manager: Cholo Alicea MD CT ABDOMEN PELVIS WO [...] Raulito Hinds MD 01/11/24 Final result Normal [facility] Comp Metabolic Profon 2023 Albumin [Mass/Vol] 5.0 g/dL Normal 3.5-5.2 [facility] Comment on above: Performed By: #### D DEBBI, CDP, CP, MG #### [address] [place] [address] Resource Conservation Manager: Cholo Alicea MD Albumin/Glob Ratio 1.4 Normal 1.0-2.5 [facility] Comment on above: Performed By: #### D DEBBI, CDP, CP, MG #### [facility] [address] [place] [address] [place], [place] [id number] Resource Conservation Manager: Cholo Alicea MD Alkaline Phos 92 U/L Normal 35-104 [facility] Comment on above: Performed By: #### D DEBBI, CDP, CP, MG #### [address] [place], [place] [id number] Resource Conservation Manager: Cholo Alicea MD ALT [Catalytic activity/Vol] 11 U/L Normal 5-33 [facility] Comment on above: Performed By: #### D DEBBI, CDP, CP, MG #### [address] [place], [place] [id number] Resource Conservation Manager: Cholo Alicea MD Anion gap [Moles/Vol] 17 mmol/L Normal 9-17 [facility] Comment on above: Performed By: #### D DEBBI, CDP, CP, MG #### [address] [place] [address] Resource Conservation Manager: Cholo Alicea MD AST [Catalytic activity/Vol] 18 U/L Normal <32 [facility] Comment on above: Performed By: #### D DEBBI, CDP, CP, MG #### [facility] [address] [place] [address] [place] [address] Resource Conservation Manager: Cholo Alicea MD Bilirubin [Mass/Vol] 0.6 mg/dL Normal 0.3-1.2 [facility] Comment on above: Performed By: #### D DEBBI, CDP, CP, MG #### [facility] [address] [place] [address] [place], [place] [id number] Resource Conservation Manager: Cholo Alicea MD BUN/CRE Ratio 10 Normal 9-20 [facility] Comment on above: Performed By: #### D DEBBI, CDP, CP, MG #### [facility] [address] [place] [id number] Resource Conservation Manager: Cholo Alicea MD Calcium [Mass/Vol] 10.2 mg/dL Normal 8.6-10.4 [facility] Comment on above: Performed By: #### D DEBBI, CDP, CP, MG #### [facility] [address] [place], [place] [id number] Resource Conservation Manager: Cholo Alieca MD Chloride [Moles/Vol] 102 mmol/L Normal 98-107 [facility] Comment on above: Performed By: #### D DEBBI, CDP, CP, MG #### [facility] [address] [place] [address] [place], [place] [id number] Resource Conservation Manager: Cholo Alicea MD CO2 [Moles/Vol] 20 mmol/L Normal 20-31 [facility] Comment on above: Performed By: #### D DEBBI, CDP, CP, MG #### [address] [place], [place] [id number] Resource Conservation Manager: Cholo Alieca MD Creatinine [Mass/Vol] 0.9 mg/dL Normal 0.5-0.9 [facility] Comment on above: Performed By: #### D DEBBI, CDP, CP, MG #### [facility] [address] [place] [address] Resource Conservation Manager: Cholo Alicea MD GFR/1.73 sq M.predicted among non-blacks MDRD (S/P/Bld) [Vol rate/Area] mL/min/{1.73_m2} Normal >60 [facility] Comment on above: Result Comment: These [...] #### D DEBBI, CDP, CP, MG #### [facility] [address] [place] [address] [place] [address] Resource Conservation Manager: Cholo Alicea MD Glucose [Mass/Vol] 103 mg/dL High 70-99 [facility] Comment on above: Performed By: #### D DEBBI, CDP, CP, MG #### [address] [place] [address] Resource Conservation Manager: Cholo Alicea MD Potassium [Moles/Vol] 3.9 mmol/L Normal 3.7-5.3 [facility] Comment on above: Performed By: #### D DEBBI, CDP, CP, MG #### [facility] [address] [place] [address] Dr. [place], [facility] Resource Conservation Manager: Cholo Alicea MD Protein [Mass/Vol] 8.5 g/dL High 6.4-8.3 [facility] Comment on above: Performed By: #### D DEBBI, CDP, CP, MG #### [address] [place], [facility] Resource Conservation Manager: Cholo Alicea MD Sodium [Moles/Vol] 139 mmol/L Normal 135-144 [facility] Comment on above: Performed By: #### D DEBBI, CDP, CP, MG #### [address] [place] [address] Resource Conservation Manager: Cholo Alicea MD Urea nitrogen [Mass/Vol] 9 mg/dL Normal 6-20 [facility] Comment on above: Performed By: #### D DEBBI, CDP, CP, MG #### [facility] [place] [id number] Resource Conservation Manager: Cholo Alicea MD HCG, ,Urineon 01-10 Beta HCG ( test) Ql (U) Negative Normal NEG [facility] Comment on above: Result Comment: Spec imens with hCG levels near the threshold of the test (25 mIU/mL) may give a negative or indeterminate result. In such cases, another test should be performed with a new specimen in 48-72 hours. If early is suspected clinically in this setting, correlation with quantitative serum b-hCG level is suggested. [facility] has confirmed the use of plasma for this test. This has not been cleared or approved by the U.[place]. Food and Drug Administration. The FDA has determined that such clearance is not necessary. Performed By: #### D DEBBI, CDP, CP, MG #### [address] [place] [place] [id number] Resource Conservation Manager: Cholo Alicea MD Magnesiumon 7 Magnesium [Mass/Vol] 1.9 mg/dL Normal 1.6-2.6 [facility] Comment on above: Performed By: #### D DEBBI, CDP, CP, MG #### [address] [place] [address] Resource Conservation Manager: Cholo Alicea MD TSH w/reflex to FT4on 2023 Thyroid Stim. Horm. 1.84 uIU/mL Normal 0.30-5.00 [facility] Comment on above: Performed By: #### T SHX #### [address] [place] [address] Resource Conservation Manager: Cholo Alicea MD Urinalysis w/ Microon 2023 Bacteria TRACE Abnormal NONE [facility] Comment on above: Performed By: #### D DEBBI, CDP, CP, MG #### [address] [place] [address] Resource Conservation Manager: Cholo Alicea MD Bilirubin, SemiQt,Ur Negative Normal NEG [facility] Comment on above: Performed By: #### D DEBBI, CDP, CP, MG #### [facility] [address] [place] [address] [place], [place] [id number] Resource Conservation Manager: Cholo Alicea MD Blood, Urine Negative Normal NEG [facility] Comment on above: Performed By: #### D DEBBI, CDP, CP, MG #### [facility] [address] [place] [address] [place], [place] [id number] Resource Conservation Manager: Cholo Alicea MD Clarity (U) Clear Normal CLEAR [facility] Comment on above: Performed By: #### D DEBBI, CDP, CP, MG #### [address] [place], [place] [id number] Resource Conservation Manager: Cholo Alicea MD Color (U) Yellow Normal YEL [facility] Comment on above: Performed By: #### D DEBBI, CDP, CP, MG #### [address] [place], [place] [id number] Resource Conservation Manager: Cholo Alicea MD Epithelial cells LM Ql (Urine sed) 10 TO 20 Normal 0-25 [facility] Comment on above: Performed By: #### D DEBBI, CDP, CP, MG #### [address] [place], [place] [id number] Resource Conservation Manager: Cholo Alicea MD Glucose Ql (U) Negative Normal NEG [facility] Comment on above: Performed By: #### D DEBBI, CDP, CP, MG #### [facility] [address] [place] [address] [place], [place] [id number] Resource Conservation Manager: Cholo Alicea MD Ketones Ql (U) Negative Normal NEG [facility] Comment on above: Performed By: #### D DEBBI, CDP, CP, MG #### [facility] [address] [place] [address] [place], [place] [id number] Resource Conservation Manager: Cholo Alicea MD Leukocyte esterase Test strip Ql (U) TRACE Abnormal NEG [facility] Comment on above: Performed By: #### D DEBBI, CDP, CP, MG #### [address] [place] [address] Resource Conservation Manager: Cholo Alicea MD Nitrite,Ur Negative Normal NEG [facility] Comment on above: Performed By: #### D DEBBI, CDP, CP, MG #### [facility] [address] [place] [address] [place], [place] [id number] Resource Conservation Manager: Cholo Alicea MD PH,Ur 8.0 Normal 5.0-9.0 [facility] Comment on above: Performed By: #### D DEBBI, CDP, CP, MG #### [address] [place], [place] [id number] Resource Conservation Manager: Cholo Alicea MD Protein Ql (U) Negative Normal NEG [facility] Comment on above: Performed By: #### D DEBBI, CDP, CP, MG #### [address] [place] [address] Resource Conservation Manager: Cholo Alicea MD Spec. [place],Ur 1.015 Normal 1.010-1.020 [facility] Comment on above: Performed By: #### D DEBBI, CDP, CP, MG #### [address] [place], [place] 2665683 Resource Conservation Manager: Cholo Alicea MD Urine RBC's None Normal 0-2 [facility] Comment on above: Performed By: #### D DEBBI, CDP, CP, MG #### [address] [place] [address] Resource Conservation Manager: Cholo Alicea MD Urine WBC's 5 TO 10 Normal 0-5 [facility] Comment on above: Performed By: #### D DEBBI, CDP, CP, MG #### [facility] [address] [place] [address] Resource Conservation Manager: Cholo Alicea MD Urobilinogen,Ur Normal Normal 0.0-1.0 [facility] Comment on above: Performed By: #### D DEBBI, CDP, CP, MG #### [facility] [address] [place] [address] Resource Conservation Manager: Cholo Alicea MD URINE CULTUREon 01-10-2024 Bacteria [...] F TRIMETH/SULFAMETHOXA ZOLE R >=16/304 F Resistant [facility] Comment on above: Performed By: #### 6 30-4 #### [facility] ([id number]) [address], [address] [place] [address] CBC with Diffon 01-07-2024 Abs. Basophil 0.06 k/uL Normal 0.00-0.20 [facility] Comment on above: Performed By: #### C P, DIME, CDP, TROPI #### [facility] [address] [place] [address] Resource Conservation Manager: Cholo Alicea MD Abs.Imm.Granulocyte <0.03 Normal 0.00-0.30 [facility] Comment on above: Performed By: #### C P, DIME, CDP, TROPI #### [facility] [address] [place] [address] Resource Conservation Manager: Cholo Alicea MD Abs.Neutrophil (Seg) 3.71 k/uL Normal 1.50-8.10 [facility] Comment on above: Performed By: #### C P, DIME, CDP, TROPI #### [address] [place], [place] [id number] Resource Conservation Manager: Cholo Alicea MD Basophils/100 WBC (Bld) 1 % Normal 0-2 [facility] Comment on above: Performed By: #### C P, DIME, CDP, TROPI #### [address] [place], [facility] Resource Conservation Manager: Cholo Alicea MD Eosinophils (Bld) [#/Vol] 0.06 10*3/uL Normal 0.00-0.44 [facility] Comment on above: Performed By: #### C P, DIME, CDP, TROPI #### [address] [place], [place] [address] Resource Conservation Manager: Cholo Alicea MD Eosinophils/100 WBC (Bld) 1 % Normal 1-4 [facility] Comment on above: Performed By: #### C P, DIME, CDP, TROPI #### [address] [place], [facility] Resource Conservation Manager: Cholo Alicea MD Erythrocyte distribution width (RBC) [Ratio] 12.3 % Normal 11.8-14.4 [facility] Comment on above: Performed By: #### C P, DIME, CDP, TROPI #### [address] [place], [facility] Resource Conservation Manager: Cholo Alicea MD Hematocrit (Bld) [Volume fraction] 40.3 % Normal 36.3-47.1 [facility] Comment on above: Performed By: #### C P, DIME, CDP, TROPI #### [address] [place], [facility] Resource Conservation Manager: Cholo Alicea MD Hemoglobin (Bld) [Mass/Vol] 14.0 g/dL Normal 11.9-15.1 [facility] Comment on above: Performed By: #### C P, DIME, CDP, TROPI #### [facility] [address] [place] [address] Resource Conservation Manager: Cholo Alicea MD Immature granulocytes/100 WBC (Bld) 0 % Normal 0 [facility] Comment on above: Performed By: #### C P, DIME, CDP, TROPI #### [facility] [address] [place], [facility] Resource Conservation Manager: Cholo Alicea MD Lymphocytes (Bld) [#/Vol] 3.59 10*3/uL Normal 1.10-3.70 [facility] Comment on above: Performed By: #### C P, DIME, CDP, TROPI #### [address] [place], [facility] Resource Conservation Manager: Cholo Alicea MD Lymphocytes/100 WBC (Bld) 44 % High 24-43 [facility] Comment on above: Performed By: #### C P, DIME, CDP, TROPI #### [address] [place], [facility] Resource Conservation Manager: Cholo Alciea MD MCH (RBC) [Entitic mass] 30.4 pg Normal 25.2-33.5 [facility] Comment on above: Performed By: #### C P, DIME, CDP, TROPI #### [facility] [address] [place] [address] Resource Conservation Manager: Cholo Alicea MD MCHC (RBC) [Mass/Vol] 34.7 g/dL Normal 28.4-34.8 [facility] Comment on above: Performed By: #### C P, DIME, CDP, TROPI #### [address] [place], [facility] Resource Conservation Manager: Cholo Alicea MD MCV (RBC) [Entitic vol] 87.4 fL Normal 82.6-102.9 [facility] Comment on above: Performed By: #### C P, DIME, CDP, TROPI #### [address] [place], [facility] Resource Conservation Manager: Cholo Alicea MD Monocytes (Bld) [#/Vol] 0.67 10*3/uL Normal 0.10-1.20 [facility] Comment on above: Performed By: #### C P, DIME, CDP, TROPI #### [address] [place], [facility] Resource Conservation Manager: Cholo Alicea MD Monocytes/100 WBC (Bld) 8 % Normal 3-12 [facility] Comment on above: Performed By: #### C P, DIME, CDP, TROPI #### [address] [place], [facility] Resource Conservation Manager: Cholo Alicea MD Neutrophil (Seg) 46 % Normal 36-65 [facility] Comment on above: Performed By: #### C P, DIME, CDP, TROPI #### [address] [place], [facility] Resource Conservation Manager: Cholo Alicea MD NRBC Automated 0.0 per 100 WBC Normal 0.0 [facility] Comment on above: Performed By: #### C P, DIME, CDP, TROPI #### [address] [place], [facility] Resource Conservation Manager: Cholo Alicea MD Platelet mean volume (Bld) [Entitic vol] 10.3 fL Normal 8.1-13.5 [facility] Comment on above: Performed By: #### C P, DIME, CDP, TROPI #### [address] [place], [place] [id number] Resource Conservation Manager: Cholo Alicea MD Platelets (Bld) [#/Vol] 292 10*3/uL Normal 138-453 [facility] Comment on above: Performed By: #### C P, DIME, CDP, TROPI #### [facility] [address] [place], [place] 8530083 Resource Conservation Manager: Cholo Alicea MD RBC (Bld) [#/Vol] 4.61 10*6/uL Normal 3.95-5.11 [facility] Comment on above: Performed By: #### C P, DIME, CDP, TROPI #### [facility] [address] [place], [place] [id number] Resource Conservation Manager: Cholo Alicea MD WBC (Bld) [#/Vol] 8.1 10*3/uL Normal 3.5-11.3 [facility] Comment on above: Performed By: #### C P, DIME, CDP, TROPI #### [facility] [address] [place], [place] 0006183 Resource Conservation Manager: Cholo Alicea MD Comp Metabolic Profon 2023 Albumin [Mass/Vol] 4.6 g/dL Normal 3.5-5.2 [facility] Comment on above: Performed By: #### C P, DIME, CDP, TROPI #### [facility] [address] [place], [place] 9516483 Resource Conservation Manager: Cholo Alicea MD Albumin/Glob Ratio 1.6 Normal 1.0-2.5 [facility] Comment on above: Performed By: #### C P, DIME, CDP, TROPI #### [facility] [address] [place], [place] 4128083 Resource Conservation Manager: Cholo Alicea MD Alkaline Phos 73 U/L Normal 35-104 [facility] Comment on above: Performed By: #### C P, DIME, CDP, TROPI #### [facility] [address] [place], [place] 1224383 Resource Conservation Manager: Cholo Alicea MD ALT [Catalytic activity/Vol] 9 U/L Normal 5-33 [facility] Comment on above: Performed By: #### C P, DIME, CDP, TROPI #### [facility] [address] [place], [place] 6216183 Resource Conservation Manager: Cholo Alicea MD Anion gap [Moles/Vol] 10 mmol/L Normal 9-17 [facility] Comment on above: Performed By: #### C P, DIME, CDP, TROPI #### [address] [place], [place] 5137783 Resource Conservation Manager: Cholo Alicea MD AST [Catalytic activity/Vol] 14 U/L Normal <32 [facility] Comment on above: Performed By: #### C P, DIME, CDP, TROPI #### [address] [place], [place] 4306583 Resource Conservation Manager: Cholo Alicea MD Bilirubin [Mass/Vol] 0.4 mg/dL Normal 0.3-1.2 [facility] Comment on above: Performed By: #### C P, DIME, CDP, TROPI #### [address] [place], [place] 6517483 Resource Conservation Manager: Cholo Alicea MD BUN/CRE Ratio 24 High 9-20 [facility] Comment on above: Performed By: #### C P, DIME, CDP, TROPI #### [address] [place] [address] Resource Conservation Manager: Cholo Alicea MD Calcium [Mass/Vol] 8.6 mg/dL Normal 8.6-10.4 [facility] Comment on above: Performed By: #### C P, DIME, CDP, TROPI #### [facility] [address] [place] [address] Resource Conservation Manager: Cholo Alicea MD Chloride [Moles/Vol] 100 mmol/L Normal 98-107 [facility] Comment on above: Performed By: #### C P, DIME, CDP, TROPI #### [facility] [address] [place] [address] Resource Conservation Manager: Cholo Alicea MD CO2 [Moles/Vol] 25 mmol/L Normal 20-31 [facility] Comment on above: Performed By: #### C P, DIME, CDP, TROPI #### [facility] [address] [place] [address] Resource Conservation Manager: Cholo Alicea MD Creatinine [Mass/Vol] 0.8 mg/dL Normal 0.5-0.9 [facility] Comment on above: Performed By: #### C P, DIME, CDP, TROPI #### [facility] [address] [place] [address] Resource Conservation Manager: Cholo Alicea MD GFR/1.73 sq M.predicted among non-blacks MDRD (S/P/Bld) [Vol rate/Area] mL/min/{1.73_m2} Normal >60 [facility] Comment on above: Result Comment: These [...] #### C P, DIME, CDP, TROPI #### [facility] [address] [place] [address] Resource Conservation Manager: Cholo Alicea MD Glucose [Mass/Vol] 94 mg/dL Normal 70-99 [facility] Comment on above: Performed By: #### C P, DIME, CDP, TROPI #### [facility] [address] [place] [address] Resource Conservation Manager: Cholo Alicea MD Potassium [Moles/Vol] 3.8 mmol/L Normal 3.7-5.3 [facility] Comment on above: Performed By: #### C P, DIME, CDP, TROPI #### [facility] [address] [place] [address] Resource Conservation Manager: Cholo Alicea MD Protein [Mass/Vol] 7.4 g/dL Normal 6.4-8.3 [facility] Comment on above: Performed By: #### C P, DIME, CDP, TROPI #### [facility] [address] [place] [address] Resource Conservation Manager: Cholo Alicea MD Sodium [Moles/Vol] 135 mmol/L Normal 135-144 [facility] Comment on above: Performed By: #### C P, DIME, CDP, TROPI #### [facility] [address] [place] [address] Resource Conservation Manager: Cholo Alicea MD Urea nitrogen [Mass/Vol] 19 mg/dL Normal 6-20 [facility] Comment on above: Performed By: #### C P, DIME, CDP, TROPI #### [facility] [address] [place] [address] Resource Conservation Manager: Cholo Alicea MD D-Dimer Teston 01-07-2024 D-Dimer Test 0.39 ug/mL FEU Normal 0.00-0.59 [facility] Comment on above: Result Comment: When [...] #### C P, DIME, CDP, TROPI #### [address] [place] [address] Resource Conservation Manager: Cholo Alicea MD Drug Scr, Abuse, Uron 2023 Amphetamine(s),Ur Positive Abnormal NEG [facility] Comment on above: Result Comment: (Positive cutoff 1000 ng/mL) Performed By: #### D DEBBI, CDP, CP, MG #### [address] [place] [address] Resource Conservation Manager: Cholo Alicea MD Barbiturate(s),Ur Negative Normal NEG [facility] Comment on above: Result Comment: (Positive cutoff 200 ng/mL) Performed By: #### D DEBBI, CDP, CP, MG #### [address] [place] [address] Resource Conservation Manager: Cholo Alicea MD Benzodiazepine(s) Positive Abnormal NEG [facility] Comment on above: Result Comment: (Positive cutoff 200 ng/mL) Performed By: #### D DEBBI, CDP, CP, MG #### [address] [place] [address] Resource Conservation Manager: Cholo Alicea MD Buprenorphrine, Ur Negative Normal NEG [facility] Comment on above: Result Comment: (Positive cutoff 5 ng/ml) Performed By: #### D DEBBI, CDP, CP, MG #### [facility] [address] [place], [place] [id number] Resource Conservation Manager: Cholo Alicea MD Cannabinoid(s),Ur Negative Normal NEG [facility] Comment on above: Result Comment: (Positive cutoff 50 ng/mL) Performed By: #### D DEBBI, CDP, CP, MG #### [facility] [address] [place] [address] Dr[place], [place] [id number] Resource Conservation Manager: Cholo Alicea MD Cocaine Metabolite Negative [facility] Comment on above: Result Comment: (Positive cutoff 300 ng/mL) Performed By: #### D DEBBI, CDP, CP, MG #### [address] [place], [place] [id number] Resource Conservation Manager: Cholo Alicea MD Fentanyl, Urine Negative [facility] Comment on above: Result Comment: (Positive cutoff 5 ng/ml) Performed By: #### D DEBBI, CDP, CP, MG #### [address] [place], [place] [id number] Resource Conservation Manager: Cholo Alicea MD Interpretive Info Assay provides medical screening only. The absence of expected drug(s) and/or Normal [facility] Comment on above: Result Comment: meta bolite(s) may indicate diluted or adulterated urine, limitations of testing or timing of collection. Testing for legal purposes should be confirmed by another method. To request confirmation of test result, please call the lab within 7 days of sample submission. Performed By: #### D DEBBI, CDP, CP, MG #### [facility] [address] [place] [address] Dr. [place], [place] [id number] Resource Conservation Manager: Cholo Alicea MD Methadone Ql (U) Negative Normal NEG [facility] Comment on above: Result Comment: (Positive cutoff 300 ng/mL) Performed By: #### D DEBBI, CDP, CP, MG #### [facility] [address] [place] [address] [place] [address] Resource Conservation Manager: Cholo Alicea MD Opiate(s), Ur Negative Normal NEG [facility] Comment on above: Result Comment: (Positive cutoff 300 ng/mL) Performed By: #### D DEBBI, CDP, CP, MG #### [facility] [address] [place] [address] [place], [place] [id number] Resource Conservation Manager: Cholo Alicea MD Oxycodone, Urine Negative Normal NEG [facility] Comment on above: Result Comment: (Positive cutoff 100 ng/mL) Performed By: #### D DEBBI, CDP, CP, MG #### [address] [place], [place] [id number] Resource Conservation Manager: Cholo Alicea MD Phencyclidine, Ur Negative Normal NEG [facility] Comment on above: Result Comment: (Positive cutoff 25 ng/mL) Performed By: #### D DEBBI, CDP, CP, MG #### [address] [place] [address] Resource Conservation Manager: Cholo Alicea MD Ethanol Alcoholon 5 Ethanol [Mass/Vol] mg/dL Normal <10 [facility] Comment on above: Performed By: #### D DEBBI, CDP, CP, MG #### [address] [place] [address] Resource Conservation Manager: Cholo Alicea MD Ethanol percent <0.010 Normal <0.010 [facility] Comment on above: Performed By: #### D DEBBI, CDP, CP, MG #### [address] [place] [address] Resource Conservation Manager: Cholo Alicea MD HCG, ,Urineon 01-06 Beta HCG ( test) Ql (U) Negative Normal NEG [facility] Comment on above: Result Comment: Spec imens with hCG levels near the threshold of the test (25 mIU/mL) may give a negative or indeterminate result. In such cases, another test should be performed with a new specimen in 48-72 hours. If early is suspected clinically in this setting, correlation with quantitative serum b-hCG level is suggested. [facility] has confirmed the use of plasma for this test. This has not been cleared or approved by the U.[place]. Food and Drug Administration. The FDA has determined that such clearance is not necessary. Performed By: #### D DEBBI, CDP, CP, MG #### [facility] [address] [place] [address] [place] [address] Resource Conservation Manager: Cholo Alicea MD Troponinon 01-07-2024 Troponin, High Sens <6 Normal 0-14 [facility] Comment on above: Result Comment: High Sensitivity Troponin values cannot be compared with other Troponin methodologies. Performed By: #### C P, DIME, CDP, TROPI #### [address] [place] [address] Resource Conservation Manager: Cholo Alicea MD UA w/Reflex Cultureon 2023 Bilirubin, SemiQt,Ur Negative Normal NEG [facility] Comment on above: Performed By: #### D DEBBI, CDP, CP, MG #### [facility] [address] [place] [address] [place], [place] [id number] Resource Conservation Manager: Cholo Alicea MD Blood, Urine Negative Normal NEG [facility] Comment on above: Performed By: #### D DEBBI, CDP, CP, MG #### [facility] [address] [place] [address] [place] [address] Resource Conservation Manager: Cholo Alicea MD Clarity (U) Clear Normal CLEAR [facility] Comment on above: Performed By: #### D DEBBI, CDP, CP, MG #### [facility] [address] [place] [address] [place] [address] Resource Conservation Manager: Cholo Alicea MD Color (U) Yellow Normal YEL [facility] Comment on above: Performed By: #### D DEBBI, CDP, CP, MG #### [facility] [address] [place] [address] [place] [address] Resource Conservation Manager: Cholo Alicea MD Glucose Ql (U) Negative Normal NEG [facility] Comment on above: Performed By: #### D DEBBI, CDP, CP, MG #### [facility] [address] [place] [address] [place], [place] [id number] Resource Conservation Manager: Cholo Alicea MD Ketones Ql (U) Negative Normal NEG [facility] Comment on above: Performed By: #### D DEBBI, CDP, CP, MG #### [address] [place] [address] Resource Conservation Manager: Cholo Alicea MD Leukocyte esterase Test strip Ql (U) Negative Normal NEG [facility] Comment on above: Performed By: #### D DEBBI, CDP, CP, MG #### [address] [place] [address] Resource Conservation Manager: Cholo Alicea MD Nitrite,Ur Negative Normal [facility] Comment on above: Performed By: #### D DEBBI, CDP, CP, MG #### [address] [place] [address] Resource Conservation Manager: Cholo Alicea MD PH,Ur 6.0 Normal 5.0-9.0 [facility] Comment on above: Performed By: #### D DEBBI, CDP, CP, MG #### [facility] [address] [place] [address] [place], [place] 1932883 Resource Conservation Manager: Cholo Alicea MD Protein Ql (U) Negative Normal NEG [facility] Comment on above: Performed By: #### D DEBBI, CDP, CP, MG #### [facility] [address] [place] [address] [place], [place] [id number] Resource Conservation Manager: Cholo Alicea MD Spec. [place],Ur >1.030 High 1.010-1.020 [facility] Comment on above: Performed By: #### D DEBBI, CDP, CP, MG #### [facility] [address] [place] [address] [place] [address] Resource Conservation Manager: Cholo Alicea MD Urobilinogen,Ur Normal Normal 0.0-1.0 [facility] Comment on above: Performed By: #### D DEBBI, CDP, CP, MG #### [facility] [address] [place] [address] [place], [place] [id number] Resource Conservation Manager: Cholo Alicea MD Urinalysis,Microon 4 Bacteria 3+ Abnormal NONE [facility] Comment on above: Performed By: #### D DEBBI, CDP, CP, MG #### [facility] [address] [place] [address] Dr[place], [place] [id number] Resource Conservation Manager: Cholo Alicea MD Epithelial cells LM Ql (Urine sed) 5 TO 10 Normal 0-25 [facility] Comment on above: Performed By: #### D DEBBI, CDP, CP, MG #### [facility] [address] [place] [address] [place], [place] [id number] Resource Conservation Manager: Cholo Alicea MD Urine RBC's 0 TO 2 Normal 0-2 [facility] Comment on above: Performed By: #### D DEBBI, CDP, CP, MG #### [facility] [address] [place] [address] [place] [address] Resource Conservation Manager: Cholo Alicea MD Urine WBC's 5 TO 10 Normal 0-5 [facility] Comment on above: Performed By: #### D DEBBI, CDP, CP, MG #### [facility] [address] [place] [address] [place] [address] Resource Conservation Manager: Cholo Alicea MD Venous Blood Gaseson 024 Servando Test NO Normal [facility] Comment on above: Performed By: #### D DEBBI, CDP, CP, MG #### [facility] [address] [place] [address] Resource Conservation Manager: Cholo Alicea MD Body Temp. 37.0 [facility] Comment on above: Performed By: #### D DEBBI, CDP, CP, MG #### [facility] [address] [place], [place] [id number] Resource Conservation Manager: Cholo Alicea MD FIO2 21 [facility] Comment on above: Performed By: #### D DEBBI, CDP, CP, MG #### [facility] [address] [place] [address] [place], [place] 2100683 Resource Conservation Manager: Cholo Alicea MD HCO3 (Bld) [Moles/Vol] 24.9 mmol/L Normal 24.0-30.0 [facility] Comment on above: Performed By: #### D DEBBI, CDP, CP, MG #### [facility] [address] [place] [address] [place], [place] 1010783 Resource Conservation Manager: Cholo Alicea MD Negative Base Excess 0.2 mmol/L Normal 0.0-2.0 [facility] Comment on above: Performed By: #### D DEBBI, CDP, CP, MG #### [address] [place] [address] Resource Conservation Manager: Cholo Alicea MD O2 Device/Flow/% ROOM AIR [facility] Comment on above: Performed By: #### D DEBBI, CDP, CP, MG #### [facility] [address] [place] [address] Resource Conservation Manager: Cholo Alicea MD Oxygen saturation in Blood 77.3 % Normal 60.0-85.0 [facility] Comment on above: Performed By: #### D DEBBI, CDP, CP, MG #### [facility] [address] [place] [address] [place], [place] 6807883 Resource Conservation Manager: Cholo Alicea MD pCO2 42.3 mm Hg Normal 39-55 [facility] Comment on above: Performed By: #### D DEBBI, CDP, CP, MG #### [facility] [address] [place] [address] [place], [place] 0394183 Resource Conservation Manager: Cholo Alicea MD Pco2 Adj'd for Temp. 42.3 mmHg Normal 39.0-55.0 [facility] Comment on above: Performed By: #### D DEBBI, CDP, CP, MG #### [address] [place] [address] Resource Conservation Manager: Cholo Alicea MD pH (Bld) 7.388 [pH] Normal 7.32-7.42 [facility] Comment on above: Performed By: #### D DEBBI, CDP, CP, MG #### [address] [place], [place] 4257183 Resource Conservation Manager: Cholo Alicea MD pH Adjst'd for Temp. 7.388 Normal 7.320-7.420 [facility] Comment on above: Performed By: #### D DEBBI, CDP, CP, MG #### [address] [place], [place] 3563383 Resource Conservation Manager: Cholo Alicea MD pO2 42.2 mm Hg Normal 30.0-50.0 [facility] Comment on above: Performed By: #### D DEBBI, CDP, CP, MG #### [facility] [address] [place] [address] [place], [place] 4608083 Resource Conservation Manager: Cholo Alicea MD pO2 Adj'd for Temp. 42.2 mmHg Normal 30.0-50.0 [facility] Comment on above: Performed By: #### D DEBBI, CDP, CP, MG #### [facility] [address] [place] [address] [place], [place] 5248683 Resource Conservation Manager: Cholo Alicea MD XR CHEST PORTABLEon 01-07-20 [...] Jonnie So MD 01/07/24 Final result Normal [facility] Basic Metabolic Profon 11-19 Anion gap [Moles/Vol] 9 mmol/L Normal - [facility] Comment on above: Performed By: #### D DEBBI, CDP, CP, MG #### [facility] [address] [place] [address] [place] [address] Resource Conservation Manager: Cholo Alicea MD BUN/CRE Ratio 11 Normal - [facility] Comment on above: Performed By: #### D DEBBI, CDP, CP, MG #### [address] [place] [address] Resource Conservation Manager: Cholo Alicea MD Calcium [Mass/Vol] 9.1 mg/dL Normal 8.6-10.4 [facility] Comment on above: Performed By: #### D DEBBI, CDP, CP, MG #### [facility] [address] [place] [address] [place] [address] Resource Conservation Manager: Cholo Alicea MD Chloride [Moles/Vol] 103 mmol/L Normal 98-107 [facility] Comment on above: Performed By: #### D DEBBI, CDP, CP, MG #### [facility] [address] [place] [address] [place] [address] Resource Conservation Manager: Cholo Alicea MD CO2 [Moles/Vol] 25 mmol/L Normal 20-31 [facility] Comment on above: Performed By: #### D DEBBI, CDP, CP, MG #### [address] [place] [address] Resource Conservation Manager: Cholo Alicea MD Creatinine [Mass/Vol] 0.8 mg/dL Normal 0.5-0.9 [facility] Comment on above: Performed By: #### D DEBBI, CDP, CP, MG #### [facility] [address] [place] [address] [place] [address] Resource Conservation Manager: Cholo Alicea MD GFR/1.73 sq M.predicted among non-blacks MDRD (S/P/Bld) [Vol rate/Area] mL/min/{1.73_m2} Normal >60 [facility] Comment on above: Result Comment: These [...] #### D DEBBI, CDP, CP, MG #### [address] [place] [address] Resource Conservation Manager: Cholo Alicea MD Glucose [Mass/Vol] 87 mg/dL Normal 70-99 [facility] Comment on above: Performed By: #### D DEBBI, CDP, CP, MG #### [address] [place] [address] Resource Conservation Manager: Cholo Alicea MD Potassium [Moles/Vol] 3.8 mmol/L Normal 3.7-5.3 [facility] Comment on above: Performed By: #### D DEBBI, CDP, CP, MG #### [address] [place] [address] Resource Conservation Manager: Cholo Alicea MD Sodium [Moles/Vol] 137 mmol/L Normal 135-144 [facility] Comment on above: Performed By: #### D DEBBI, CDP, CP, MG #### [facility] [address] [place] [address] Dr[place], [facility] Resource Conservation Manager: Cholo Alicea MD Urea nitrogen [Mass/Vol] 9 mg/dL Normal 6-20 [facility] Comment on above: Performed By: #### D DEBBI, CDP, CP, MG #### [facility] [address] [place] [address] Dr. [place], [facility] Resource Conservation Manager: Cholo Alicea MD CBC with Diffon 11-20-2023 Abs. Basophil 0.05 k/uL Normal 0.00-0.20 [facility] Comment on above: Performed By: #### D DEBBI, CDP, CP, MG #### [address] [place], [facility] Resource Conservation Manager: Cholo Alicea MD Abs.Imm.Granulocyte <0.03 Normal 0.00-0.30 [facility] Comment on above: Performed By: #### D DEBBI, CDP, CP, MG #### [address] [place], [facility] Resource Conservation Manager: Cholo Alicea MD Abs.Neutrophil (Seg) 4.60 k/uL Normal 1.50-8.10 [facility] Comment on above: Performed By: #### D DEBBI, CDP, CP, MG #### [facility] [address] [place] [address] Dr[place], [facility] Resource Conservation Manager: Cholo Alicea MD Basophils/100 WBC (Bld) 1 % Normal 0-2 [facility] Comment on above: Performed By: #### D DEBBI, CDP, CP, MG #### [address] [place] [address] Resource Conservation Manager: Cholo Alicea MD Eosinophils (Bld) [#/Vol] 0.07 10*3/uL Normal 0.00-0.44 [facility] Comment on above: Performed By: #### D DEBBI, CDP, CP, MG #### [address] [place], [facility] Resource Conservation Manager: Cholo Alicea MD Eosinophils/100 WBC (Bld) 1 % Normal 1-4 [facility] Comment on above: Performed By: #### D DEBBI, CDP, CP, MG #### [address] [place], [facility] Resource Conservation Manager: Cholo Alicea MD Erythrocyte distribution width (RBC) [Ratio] 12.3 % Normal 11.8-14.4 [facility] Comment on above: Performed By: #### D DEBBI, CDP, CP, MG #### [address] [place] [id number] Resource Conservation Manager: Cholo Alicea MD Hematocrit (Bld) [Volume fraction] 39.8 % Normal 36.3-47.1 [facility] Comment on above: Performed By: #### D DEBBI, CDP, CP, MG #### [address] [place], [facility] Resource Conservation Manager: Cholo Alicea MD Hemoglobin (Bld) [Mass/Vol] 13.5 g/dL Normal 11.9-15.1 [facility] Comment on above: Performed By: #### D DEBBI, CDP, CP, MG #### [address] [place], [facility] Resource Conservation Manager: Cholo Alicea MD Immature granulocytes/100 WBC (Bld) 0 % Normal 0 [facility] Comment on above: Performed By: #### D DEBBI, CDP, CP, MG #### [address] [place], [facility] Resource Conservation Manager: Cholo Alicea MD Lymphocytes (Bld) [#/Vol] 2.81 10*3/uL Normal 1.10-3.70 [facility] Comment on above: Performed By: #### D DEBBI, CDP, CP, MG #### [address] [place] [address] Resource Conservation Manager: Cholo Alicea MD Lymphocytes/100 WBC (Bld) 34 % Normal 24-43 [facility] Comment on above: Performed By: #### D DEBBI, CDP, CP, MG #### [address] [place], [facility] Resource Conservation Manager: Cholo Alicea MD MCH (RBC) [Entitic mass] 29.9 pg Normal 25.2-33.5 [facility] Comment on above: Performed By: #### D DEBBI, CDP, CP, MG #### [address] [place], [facility] Resource Conservation Manager: Cholo Alicea MD MCHC (RBC) [Mass/Vol] 33.9 g/dL Normal 28.4-34.8 [facility] Comment on above: Performed By: #### D DEBBI, CDP, CP, MG #### [address] [place], [facility] Resource Conservation Manager: Cholo Alicea MD MCV (RBC) [Entitic vol] 88.1 fL Normal 82.6-102.9 [facility] Comment on above: Performed By: #### D DEBBI, CDP, CP, MG #### [address] [place], [facility] Resource Conservation Manager: Cholo Alicea MD Monocytes (Bld) [#/Vol] 0.62 10*3/uL Normal 0.10-1.20 [facility] Comment on above: Performed By: #### D DEBBI, CDP, CP, MG #### [address] [place], [facility] Resource Conservation Manager: Cholo Alicea MD Monocytes/100 WBC (Bld) 8 % Normal 3-12 M [facility] Comment on above: Performed By: #### D DEBBI, CDP, CP, MG #### [address] [place], [place] 5868583 Resource Conservation Manager: Cholo Alicea MD Neutrophil (Seg) 56 % Normal 36-65 [facility] Comment on above: Performed By: #### D DEBBI, CDP, CP, MG #### [address] [place], [place] 9851883 Resource Conservation Manager: Cholo Alicea MD NRBC Automated 0.0 per 100 WBC Normal 0.0 [facility] Comment on above: Performed By: #### D DEBBI, CDP, CP, MG #### [address] [place], [place] 8262683 Resource Conservation Manager: Cholo Alicea MD Platelet mean volume (Bld) [Entitic vol] 10.2 fL Normal 8.1-13.5 [facility] Comment on above: Performed By: #### D DEBBI, CDP, CP, MG #### [address] [place], [place] 6490483 Resource Conservation Manager: Cholo Alicea MD Platelets (Bld) [#/Vol] 302 10*3/uL Normal 138-453 [facility] Comment on above: Performed By: #### D DEBBI, CDP, CP, MG #### [address] [place], [place] 7099583 Resource Conservation Manager: Cholo Alicea MD RBC (Bld) [#/Vol] 4.52 10*6/uL Normal 3.95-5.11 [facility] Comment on above: Performed By: #### D DEBBI, CDP, CP, MG #### [address] [place] [address] Resource Conservation Manager: Cholo Alicea MD WBC (Bld) [#/Vol] 8.2 10*3/uL Normal 3.5-11.3 [facility] Comment on above: Performed By: #### D DEBBI, TATA, CP, MG #### [facility] [address] [place], [place] 5771883 Resource Conservation Manager: Cholo Alicea MD CT CHEST PULMONARY EMBOLISM [...] Costa Block MD 11/20/23 Final result Normal [facility] Troponinon 11-20-2023 Troponin, High Sens <6 Normal 0-14 [facility] Comment on above: Result Comment: High Sensitivity Troponin values cannot be compared with other Troponin methodologies. Performed By: #### D DEBBI, TATA, CP, MG #### [facility] [address] [place], [place] 6923383 Resource Conservation Manager: Cholo Alicea MD CBC AND AUTO DIFFon 06-22-20 24 ABSOLUTE BASOPHIL 0.1 X10E9/L Normal 0.0-0.2 [facility] Comment on above: Performed By: #### C OSWALDO, CMP, 32795-8, 83421-0 #### [facility] ([id number]) [address] [place] [address] ABSOLUTE NEUTROPHIL 4.6 X10E9/L Normal 1.5-6.6 [facility] Comment on above: Performed By: #### C BCA, CMP, 00287-1, 24581-6 #### [facility] ([id number]) [address] [place] [address] Basophils/100 WBC (Bld) 0.8 % Normal [facility] Comment on above: Performed By: #### C OSWALDO, CMP, 97487-8, 43118-5 #### [facility] ([id number]) [address] [place] [address] Eosinophils (Bld) [#/Vol] 0.1 10*3/uL Normal 0.0-0.4 [facility] Comment on above: Performed By: #### C BCA, CMP, 50398-2, 36447-4 #### [facility] ([id number]) [address] [place] [address] Eosinophils/100 WBC (Bld) 1.3 % Normal [facility] Comment on above: Performed By: #### C BCA, CMP, 06052-6, 89815-4 #### [facility] ([id number]) [address] [place] [address]37 Erythrocyte distribution width (RBC) [Ratio] 13.2 % Normal 11.5-15.0 [facility] Comment on above: Performed By: #### C BCA, CMP, 06381-5, 02295-1 #### [facility] ([id number]) [address] [place] [address] [place] [address] Hematocrit (Bld) [Volume fraction] 38.7 % Normal 35-47 [facility] Comment on above: Performed By: #### C OSWALDO, CMP, 79709-0, 24988-7 #### [facility] ([id number]) [address] [place] [address] Hemoglobin (Bld) [Mass/Vol] 13.3 g/dL Normal 11.7-15.5 [facility] Comment on above: Performed By: #### C OSWALDO, CMP, 19611-4, 32078-6 #### [facility] ([id number]) [address] [place] [address] Lymphocytes (Bld) [#/Vol] 2.6 10*3/uL Normal 1.0-3.5 [facility] Comment on above: Performed By: #### Franco CHACON, CMP, 13999-6, 25556-5 #### [facility] ([id number]) [address] [place] [address] 99617 Lymphocytes/100 WBC (Bld) 33.3 % Normal [facility] Comment on above: Performed By: #### Franco CHACON, CMP, 33959-3, 24913-6 #### [facility] ([id number]) [address] [place] [address] 42390 MCH (RBC) [Entitic mass] 30.1 pg Normal 27-34 [facility] Comment on above: Performed By: #### C OSWALDO, CMP, 78724-3, 15217-9 #### [facility] ([id number]) [address] [place] [address] 01359 MCHC (RBC) [Mass/Vol] 34.4 g/dL Normal 32-36 [facility] Comment on above: Performed By: #### Franco CHACON, CMP, 52545-2, 45256-3 #### [facility] ([id number]) [address] [place] [address] 71936 MCV (RBC) [Entitic vol] 88 fL Normal 80-100 [facility] Comment on above: Performed By: #### Franco CHACON CMP, 90942-1, 17511-4 #### [facility] ([id number]) [address] [place] [address]902 Monocytes (Bld) [#/Vol] 0.6 10*3/uL Normal 0-0.9 [facility] Comment on above: Performed By: #### Franco CHACON, CMP, 08275-0, 10592-5 #### [facility] ([id number]) [address] [place] [address] 23040 Monocytes/100 WBC (Bld) 7.1 % Normal [facility] Comment on above: Performed By: #### Franco CHACON, CMP, 84710-5, 40699-8 #### [facility] ([id number]) [address] [place] [address] 70018 Neutrophils/100 WBC (Bld) 57.5 % Normal [facility] Comment on above: Performed By: #### Franco CHACON, CMP, 19605-2, 85733-3 #### [facility] ([id number]) [address] [place] [address] 32137 Platelet mean volume (Bld) [Entitic vol] 8.2 fL Normal 7-12 [facility] Comment on above: Performed By: #### C OSWALDO, CMP, 84152-2, 01759-6 #### [facility] ([id number]) [address] [place] [address] 01370 Platelets (Bld) [#/Vol] 306 10*3/uL Normal 150-450 [facility] Comment on above: Performed By: #### Franco CHACON, CMP, 68886-7, 29019-6 #### [facility] ([id number]) [address] [place] [address] 10779 RBC COUNT 4.42 X10E12/L Normal 3.80-5.20 [facility] Comment on above: Performed By: #### C BCA, CMP, 09230-3, 16886-3 #### [facility] ([id number]) [address] [place] [address] 21174 WBC (Bld) [#/Vol] 7.9 10*3/uL Normal 4.0-11.0 [facility] Comment on above: Performed By: #### C BCA, CMP, 40553-3, 60865-4 #### [facility] ([id number]) [address] [place] [address] 32892 COMPREHENSIVE METABOLIC PANE Haile 11-19-2023 Albumin [Mass/Vol] 4.5 g/dL Normal 3.2-5.3 [facility] Comment on above: Performed By: #### C BCA, CMP, 55178-9, 44245-3 #### [facility] ([id number]) [address] [place] [address] 55081 ALP [Catalytic activity/Vol] 70 U/L Normal 39-130 [facility] Comment on above: Performed By: #### C BCA, CMP, 64145-1, 59922-7 #### [facility] ([id number]) [address] [place] [address] 62536 ALT [Catalytic activity/Vol] 15 U/L Normal 0-31 [facility] Comment on above: Performed By: #### C BCA, CMP, 05404-7, 85572-2 #### [facility] ([id number]) [address] [place] [address] 82965 Anion gap [Moles/Vol] 3 mmol/L Low 5-15 [facility] Comment on above: Performed By: #### C BCA, CMP, 09243-9, 65790-5 #### [facility] ([id number]) [address] [place] [address] 01066 AST [Catalytic activity/Vol] 19 U/L Normal 0-41 [facility] Comment on above: Performed By: #### C BCA, CMP, 26208-8, 72803-9 #### [facility] ([id number]) [address] [place] [address] 85090 Bilirubin [Mass/Vol] 0.5 mg/dL Normal 0.3-1.2 [facility] Comment on above: Performed By: #### C BCA, CMP, 05775-0, 21007-0 #### [facility] ([id number]) [address] [place] [address] 90456 Calcium [Mass/Vol] 8.6 mg/dL Normal 8.5-10.5 [facility] Comment on above: Performed By: #### C BCA, CMP, 43213-3, 12473-7 #### [facility] ([id number]) [address] [place] [address] 55736 Chloride [Moles/Vol] 107 mmol/L Normal 98-109 [facility] Comment on above: Performed By: #### C BCA, CMP, 64232-1, 07025-0 #### [facility] ([id number]) [address] [place] [address] 09370 CO2 [Moles/Vol] 27 mmol/L Normal 22-32 [facility] Comment on above: Performed By: #### C BCA, CMP, 35891-0, 09862-3 #### [facility] ([id number]) [address] [place] [address] 47051 Creatinine [Mass/Vol] 0.98 mg/dL Normal 0.40-1.00 [facility] Comment on above: Result Comment: METH OD TRACEABLE TO IDMS STANDARD Performed By: #### C PIPO CHACON, 07381-8, 66494-3 #### [facility] ([id number]) [address] [place] [address] 03932 GFR/1.73 sq M.predicted among non-blacks MDRD (S/P/Bld) [Vol rate/Area] 82 mL/min/{1.73_m2} Normal >59 [facility] Comment on above: Result Comment: Reported eGFR is based on the CKD-EPI 2020 equation that does not use a race coefficient. Performed By: #### C PIPO CHACON, 79980-3, 69635-9 #### [facility] ([id number]) [address] [place] [address] 07628 Glucose [Mass/Vol] 81 mg/dL Normal 65-99 [facility] Comment on above: Performed By: #### C PIPO CHACON, 11655-4, 44636-7 #### [facility] ([id number]) [address] [place] [address] 01633 Potassium [Moles/Vol] 3.5 mmol/L Normal 3.5-5.0 [facility] Comment on above: Performed By: #### C OSWALDO CMP, 31892-9, 87565-6 #### [facility] ([id number]) [address] [place] [address] 14262 Protein [Mass/Vol] 7.8 g/dL Normal 6.0-8.0 [facility] Comment on above: Performed By: #### C OSWALDO, CMP, 89149-9, 64971-9 #### [facility] ([id number]) [address] [place] [address] 23220 Sodium [Moles/Vol] 137 mmol/L Normal 134-146 [facility] Comment on above: Performed By: #### C OSWALDO, CMP, 83284-4, 56423-8 #### [facility] ([id number]) [address] [place] [address] 44462 Urea nitrogen [Mass/Vol] 15 mg/dL Normal 5-23 [facility] Comment on above: Performed By: #### C OSWALDO PIPO, 98920-1, 26768-6 #### [facility] ([id number]) [address] [place] [address] 24328 Fibrin D-dimer DDU (PPP) [Ma ss/Vol]on 11-19-2023 D DIMER <150 Normal <255 [facility] Comment on above: Result Comment: Results <255 ng/mL DDU: The presence of a VTE can safely be excluded with a negative D-Dimer result and Wells score. A negative result doesn't exclude the possibility of DIC. The test be repeated along with other diagnostic tests if the patient's symptoms persist or worsen. [email or web address] Performed By: #### C PIPO CHACON, 52766-1, 13007-5 #### [facility] ([id number]) [address] [place] [address] 40605 HCG ( test) Ql (U)o n 11-19-2023 Beta HCG ( test) Ql (U) Negative Normal NEG [facility] Comment on above: Performed By: #### 2 106-3 #### [facility] ([id number]) [address] [place] [address] 10125 Troponin I.cardiac High sens itivity method [Mass/Vol]on 11-19-2023 1 HOUR TROP I, HIGH SENSITIVITY <2 Normal <16 [facility] Comment on above: Performed By: #### 8 9579-7 #### [facility] ([id number]) [address] [place] [address] 99776 TROPONIN I, HIGH SENSITIVITY <2 Normal <16 [facility] Comment on above: Performed By: #### C PIPO CHACON, 35157-6, 75942-1 #### [facility] ([id number]) [address] [place] [address] 67797 URN MACROSCOPIC NURon 2023 BILIRUBIN NADYA Negative Normal NEG [facility] Comment on above: Performed By: #### N UM #### [facility] ([id number]) [address] [place] [address] 21323 BLOOD/HGB NADYA Negative Normal NEG [facility] Comment on above: Performed By: #### N UM #### [facility] ([id number]) [address] [place] [address] 84688 GLUCOSE NADYA Negative Normal NEG [facility] Comment on above: Performed By: #### N UM #### [facility] ([id number]) [address] [place] [address] [place] [address] KETONES NADYA Negative Normal NEG [facility] Comment on above: Performed By: #### N UM #### [facility] ([id number]) [address] [place] [address] [place] [address] LEUKOCYTE ESTERASE NADYA Negative Normal NEG [facility] Comment on above: Performed By: #### N UM #### [facility] ([id number]) [address] [place] [address] [place] [address] NITRITE NADYA Negative Normal NEG [facility] Comment on above: Performed By: #### N UM #### [facility] ([id number]) [address] [place] [address] 09261 PH NADYA 8.5 Normal 5.0-8.5 [facility] Comment on above: Performed By: #### N UM #### [facility] ([id number]) [address] [place] [address] 42085 PROTEIN NADYA Negative Normal NEG [facility] Comment on above: Performed By: #### N UM #### [facility] ([id number]) [address] [place] [address] SPECIFIC GRAVITY NADYA 1.015 Normal 1.003-1.035 [facility] Comment on above: Performed By: #### N UM #### [facility] ([id number]) [address] [place] [address] UROBILINOGEN NADYA 1.0 eu/dL Normal <1.1 [facility] Comment on above: Performed By: #### N UM #### [facility] ([id number]) [address] [place] [address] 24998 XR CHEST 2 VWSon 11-19-2023 XR CHEST [...] Martinez MD on 11/19/2023 5:27 PM Normal [facility] CBC with Diffon 11-17-2023 Abs. Basophil 0.07 k/uL Normal 0.00-0.20 [facility] Comment on above: Performed By: #### D DEBBI, CDP, CP, MG #### [facility] [address] [place] [address] Resource Conservation Manager: Cholo Alicea MD Abs.Imm.Granulocyte <0.03 Normal 0.00-0.30 [facility] Comment on above: Performed By: #### D DEBBI, CDP, CP, MG #### [facility] [address] [place], [facility] Resource Conservation Manager: Cholo Alicea MD Abs.Neutrophil (Seg) 4.68 k/uL Normal 1.50-8.10 [facility] Comment on above: Performed By: #### D DEBBI, CDP, CP, MG #### [address] [place] [address]83 Resource Conservation Manager: Cholo Alicea MD Basophils/100 WBC (Bld) 1 % Normal 0-2 [facility] Comment on above: Performed By: #### D DEBBI, CDP, CP, MG #### [address] [place] [address]3683 Resource Conservation Manager: Cholo Alicea MD Eosinophils (Bld) [#/Vol] 0.05 10*3/uL Normal 0.00-0.44 [facility] Comment on above: Performed By: #### D DEBBI, CDP, CP, MG #### [address] [place], [facility] Resource Conservation Manager: Cholo Alicea MD Eosinophils/100 WBC (Bld) 1 % Normal 1-4 [facility] Comment on above: Performed By: #### D DEBBI, CDP, CP, MG #### [address] [place] 7483683 Resource Conservation Manager: Cholo Alicea MD Erythrocyte distribution width (RBC) [Ratio] 12.2 % Normal 11.8-14.4 [facility] Comment on above: Performed By: #### D DEBBI, CDP, CP, MG #### [address] [place] [address]3683 Resource Conservation Manager: Cholo Alicea MD Hematocrit (Bld) [Volume fraction] 37.6 % Normal 36.3-47.1 [facility] Comment on above: Performed By: #### D DEBBI, CDP, CP, MG #### [address] [place] 8649783 Resource Conservation Manager: Cholo Alicea MD Hemoglobin (Bld) [Mass/Vol] 13.1 g/dL Normal 11.9-15.1 [facility] Comment on above: Performed By: #### D DEBBI, CDP, CP, MG #### [address] [place], [place] 2600383 Resource Conservation Manager: Cholo Alicea MD Immature granulocytes/100 WBC (Bld) 0 % Normal 0 [facility] Comment on above: Performed By: #### D DEBBI, CDP, CP, MG #### [address] [place], [facility] Resource Conservation Manager: Cholo Alicea MD Lymphocytes (Bld) [#/Vol] 3.32 10*3/uL Normal 1.10-3.70 [facility] Comment on above: Performed By: #### D DEBBI, CDP, CP, MG #### [address] [place], [facility] Resource Conservation Manager: Cholo Alicea MD Lymphocytes/100 WBC (Bld) 38 % Normal 24-43 [facility] Comment on above: Performed By: #### D DEBBI, CDP, CP, MG #### [address] [place], [facility] Resource Conservation Manager: Cholo Alicea MD MCH (RBC) [Entitic mass] 30.2 pg Normal 25.2-33.5 [facility] Comment on above: Performed By: #### D DEBBI, CDP, CP, MG #### [address] [place] [address] Resource Conservation Manager: Cholo Alicea MD MCHC (RBC) [Mass/Vol] 34.8 g/dL Normal 28.4-34.8 [facility] Comment on above: Performed By: #### D DEBBI, CDP, CP, MG #### [address] [place] [address] Resource Conservation Manager: Cholo Alicea MD MCV (RBC) [Entitic vol] 86.6 fL Normal 82.6-102.9 [facility] Comment on above: Performed By: #### D DEBBI, CDP, CP, MG #### [address] [place], [facility] Resource Conservation Manager: Cholo Alicea MD Monocytes (Bld) [#/Vol] 0.62 10*3/uL Normal 0.10-1.20 [facility] Comment on above: Performed By: #### D DEBBI, CDP, CP, MG #### [address] [place], [facility] Resource Conservation Manager: Cholo Alicea MD Monocytes/100 WBC (Bld) 7 % Normal 3-12 [facility] Comment on above: Performed By: #### D DEBBI, CDP, CP, MG #### [address] [place], [facility] Resource Conservation Manager: Cholo Alicea MD Neutrophil (Seg) 53 % Normal 36-65 [facility] Comment on above: Performed By: #### D DEBBI, CDP, CP, MG #### [address] [place], [facility] Resource Conservation Manager: Cholo Alicea MD NRBC Automated 0.0 per 100 WBC Normal 0.0 [facility] Comment on above: Performed By: #### D DEBBI, CDP, CP, MG #### [address] [place] [address] Resource Conservation Manager: Cholo Alicea MD Platelet mean volume (Bld) [Entitic vol] 10.3 fL Normal 8.1-13.5 [facility] Comment on above: Performed By: #### D DEBBI, CDP, CP, MG #### [address] [place] [address] Resource Conservation Manager: Cholo Alicea MD Platelets (Bld) [#/Vol] 294 10*3/uL Normal 138-453 [facility] Comment on above: Performed By: #### D DEBBI, CDP, CP, MG #### [facility] [address] [place], [place] 198[address] Resource Conservation Manager: Cholo Alicea MD RBC (Bld) [#/Vol] 4.34 10*6/uL Normal 3.95-5.11 [facility] Comment on above: Performed By: #### D DEBBI, CDP, CP, MG #### [address] [place], [place] 4927583 Resource Conservation Manager: Cholo Alicea MD WBC (Bld) [#/Vol] 8.8 10*3/uL Normal 3.5-11.3 [facility] Comment on above: Performed By: #### D DEBBI, CDP, CP, MG #### [address] [place], [place] 8071483 Resource Conservation Manager: Cholo Alicea MD Comp Metabolic Profon 2023 Albumin [Mass/Vol] 4.3 g/dL Normal 3.5-5.2 [facility] Comment on above: Performed By: #### D DEBBI, CDP, CP, MG #### [facility] [address] [place] [address] Dr[place], [place] 0188983 Resource Conservation Manager: Cholo Alicea MD Albumin/Glob Ratio 1.6 Normal 1.0-2.5 [facility] Comment on above: Performed By: #### D DEBBI, CDP, CP, MG #### [facility] [address] [place] [address] Resource Conservation Manager: Cholo Alicea MD Alkaline Phos 75 U/L Normal 35-104 [facility] Comment on above: Performed By: #### D DEBBI, CDP, CP, MG #### [facility] [address] [place], [place] 573[address]83 Resource Conservation Manager: Cholo Alicea MD ALT [Catalytic activity/Vol] 9 U/L Normal 5-33 [facility] Comment on above: Performed By: #### D DEBBI, CDP, CP, MG #### [facility] [address] [place], [place] 9435683 Resource Conservation Manager: Cholo Alicea MD Anion gap [Moles/Vol] 11 mmol/L Normal 9-17 [facility] Comment on above: Performed By: #### D DEBBI, CDP, CP, MG #### [facility] [address] [place], [place] 9562983 Resource Conservation Manager: Cholo Alicea MD AST [Catalytic activity/Vol] 15 U/L Normal <32 [facility] Comment on above: Performed By: #### D DEBBI, CDP, CP, MG #### [facility] [address] [place], [place] [address]653983 Resource Conservation Manager: Cholo Alicea MD Bilirubin [Mass/Vol] 0.3 mg/dL Normal 0.3-1.2 [facility] Comment on above: Performed By: #### D DEBBI, CDP, CP, MG #### [facility] [address] [place], [place] 0579783 Resource Conservation Manager: Cholo Alicea MD BUN/CRE Ratio 19 Normal 9-20 [facility] Comment on above: Performed By: #### D DEBBI, CDP, CP, MG #### [facility] [address] [place], [place] [address]789083 Resource Conservation Manager: Cholo Alicea MD Calcium [Mass/Vol] 8.7 mg/dL Normal 8.6-10.4 [facility] Comment on above: Performed By: #### D DEBBI, CDP, CP, MG #### [facility] [address] [place], [place] 2011783 Resource Conservation Manager: Cholo Alicea MD Chloride [Moles/Vol] 103 mmol/L Normal 98-107 [facility] Comment on above: Performed By: #### D DEBBI, CDP, CP, MG #### [facility] [address] [place] [address] Resource Conservation Manager: Cholo Alicea MD CO2 [Moles/Vol] 24 mmol/L Normal 20-31 [facility] Comment on above: Performed By: #### D DEBBI, CDP, CP, MG #### [facility] [address] [place] [address] Resource Conservation Manager: Cholo Alicea MD Creatinine [Mass/Vol] 0.8 mg/dL Normal 0.5-0.9 [facility] Comment on above: Performed By: #### D DEBBI, CDP, CP, MG #### [facility] [address] [place] [address] Resource Conservation Manager: Cholo Alicea MD GFR/1.73 sq M.predicted among non-blacks MDRD (S/P/Bld) [Vol rate/Area] mL/min/{1.73_m2} Normal >60 [facility] Comment on above: Result Comment: These [...] #### D DEBBI, CDP, CP, MG #### [facility] [address] [place] [address] Resource Conservation Manager: Cholo Alicea MD Glucose [Mass/Vol] 98 mg/dL Normal 70-99 [facility] Comment on above: Performed By: #### D DEBBI, CDP, CP, MG #### [facility] [address] [place] [address] Resource Conservation Manager: Cholo Alicea MD Potassium [Moles/Vol] 3.3 mmol/L Low 3.7-5.3 [facility] Comment on above: Performed By: #### D DEBBI, CDP, CP, MG #### [facility] [address] [place] [address] Resource Conservation Manager: Cholo Alicea MD Protein [Mass/Vol] 7.0 g/dL Normal 6.4-8.3 [facility] Comment on above: Performed By: #### D DEBBI, CDP, CP, MG #### [address] [place] [address] Resource Conservation Manager: Cholo Alicea MD Sodium [Moles/Vol] 138 mmol/L Normal 135-144 [facility] Comment on above: Performed By: #### D DEBBI, CDP, CP, MG #### [facility] [address] [place] [address] [place] [address] Resource Conservation Manager: Cholo Alicea MD Urea nitrogen [Mass/Vol] 15 mg/dL Normal 6-20 [facility] Comment on above: Performed By: #### D DEBBI, CDP, CP, MG #### [address] [place] [address] Resource Conservation Manager: Cholo Alicea MD D-Dimer Teston 11-17-2023 D-Dimer Test 0.40 ug/mL FEU Normal 0.00-0.59 [facility] Comment on above: Result Comment: When [...] #### D DEBBI, CDP, CP, MG #### [address] [place] [address] Resource Conservation Manager: Cholo Alicea MD HCG Screen, Bloodon 11-17-19 24 HCG Screen, Blood Negative Normal NEG [facility] Comment on above: Result Comment: Spec imens with hCG levels near the threshold of the test (25 mIU/mL) may give a negative or indeterminate result. In such cases, another test should be performed with a new specimen in 48-72 hours. If early is suspected clinically in this setting, correlation with quantitative serum b-hCG level is suggested. [facility] has confirmed the use of plasma for this test. This has not been cleared or approved by the U.S. Food and Drug Administration. The FDA has determined that such clearance is not necessary. Performed By: #### D DEBBI, CDP, CP, MG #### [address] [place] [address] Resource Conservation Manager: Cholo Alicea MD Magnesiumon 2 Magnesium [Mass/Vol] 1.8 mg/dL Normal 1.6-2.6 [facility] Comment on above: Performed By: #### D DEBBI, CDP, CP, MG #### [address] [place] [address] Resource Conservation Manager: Cholo Alicea MD [id number] 11-17-2023 SARS-CoV-2 (COVID-19) RNA ALEKSANDER+probe Ql (Unsp spec) Not detected Normal NOTDET [facility] Comment on above: Result Comment: Rapid [...] management decisions. Fact sheet for Healthcare Providers: https://www.fda.gov/media/690312/download Fact sheet for Patients: https://www.fda.gov/media/763303/download Methodology: Isothermal Nucleic Acid Amplification Performed By: #### C OVRB #### [facility] [address] [place], [place] 1573983 Resource Conservation Manager: Cholo Alicea MD XR CHEST (2 VW)on [...] Rosalee Guevara MD 11/17/23 Final result Normal [facility] Ambulatory Visit Summaryon 0 11-08-2023 Ambulatory [...] us for your care. Normal [facility] RAD - MISCon 11-07-2023 RAD - MISC [id number] #1.00TIFF Normal [facility] RAD - Ultrasound Reporton RAD - Ultrasound Report [id number] #1.00TIFF Normal [facility] RAD - CT Reporton 05-25-2023 RAD - CT Report [id number] #1.00TIFF Normal [facility] HCG ( test) Jacquelyn izquierdo Ql (U)Ordered By: Fany Ceballos on 05-19-2023 HCG ( test) Ql (U) Negative [facility] HCG,Urineon 05-19-2023 Beta HCG ( test) Ql (U) Negative Normal [facility] Comment on above: Result Comment: PERF ORMED BY: [address] [place] [address] PATHOLOGIST HOT END OPERATOR MOISES VELASCO M.D. Performed By: #### U HCG #### [address] 05-19-2023 L Specimen: [id number] Received: 05/20/23 Status: RUDY [place] Num: [id number] Spec Type: Surgical Subm Dr: Fany Ceballos MD Tissues: A Duodenum - Biopsy (DUODENAL BX) B Esophagus Biopsy (ESOPHAGUS BX) Procedures: HE/4, Gross/Micro L4/2 Age/ Patient Sex Location Account Attending Physician Lulú Gaitan /F [id number] Fany Ceballos MD SPEC NUM: [id number] RECD: 05/20/23 STATUS: RUDY [place] NUM: [id number] PHILIP: 05/19/23- [facility] DR: Fany Ceballos MD ENTERED: 05/20/23 [facility] DR: SPEC TYPE: Surgical DEPT: S [...] submitted in one cassette labeled B1. Specimen: [id number] Received: 05/20/23 Status: RUDY [place] Num: [id number] Spec Type: Surgical Subm Dr: Fany Ceballos MD Tissues: A Duodenum - Biopsy (DUODENAL BX) B Esophagus Biopsy (ESOPHAGUS BX) Procedures: MARIELOS Gross/Micro L4/2 Patient: MarcellusadilsonLulú L [id number] (Continued) Specimen: [id number] Received: 05/20/23 (Continued) Signed (signature on file) Cielo Trimble MD 05/24/23 2301 Specimen: [id number] Received: 05/20/23 Status: RUDY [place] Num: [id number] Spec Type: Surgical Subm Dr: Fany Ceballos MD Tissues: A Duodenum - Biopsy (DUODENAL BX) B Esophagus Biopsy (ESOPHAGUS BX) Procedures: HE/4, Gross/Micro L4/2 Patient: KandyLulú L [id number] (Continued) Specimen: [id number] Received: 05/20/23 (Continued) Microscopic Description A. Two H E slides reviewed. The microscopic examination confirms the diagnosis. B. Two H E slides reviewed. The microscopic examination confirms the diagnosis. CPT Codes 68739w0 Specimen: [id number] Received: 05/20/23 Status: RUDY [place] Num: [id number] Spec Type: Surgical Subm Dr: Fany Ceballos MD Tissues: A Duodenum - Biopsy (DUODENAL BX) B Esophagus Biopsy (ESOPHAGUS BX) Procedures: Mary Anne ARCEO/Jaren L4/2 Patient: Lulú Gaitan [id number] (Continued) Signed (signature on file) Cielo Trimble MD 05/24/23 6680 Normal [facility] CT abdomen pelvis w conon CT abdomen pelvis w con [facility] [place] [address] [place] [address] CT Scan Report Signed Patient: Lulú Gaitan MR#: [id number] 4 : 1995 Acct:[id number] Age/Sex: 28 / F ADM Date: 05/12/23 [...] Pham Jr., D.OAung05/12/2023 10:29 AM Dictation Location: [place] [address] Transcribed By: [facility] 05/12/23 1029 Dictated By: Samy Pham Jr, 05/12/23 1023 Signed By: 05/12/23 1029 [facility] Physician [facility] Consent for Procedure/Surger yon 05-11-2023 Consent for Procedure/Surgery [id number]#1.00TIFF Normal [facility] Ambulatory Visit Summaryon 1 07-11-2022 Ambulatory Visit [...] Rishi MARSHALL MD Where: [facility] [place] [facility] Patient Educationon 05-10-20 Patient Education Urology Hematuria, [...] these instructions at home: Medicines ? Take cplm-ypv-jdtqqij and prescription medicines only as told by [...] the blood stops without treatment. ? Take niri-ogj-kwtjzwu and prescription medicines only as told by your health care provider. ? Drink enough fluid to keep your urine pale yellow. This information is not intended to replace advice given to you by your health care provider. Make sure you discuss any questions you have with your health care provider. Document Revised: 01/14/2021 Document Reviewed: 01/14/2021 Valentin Uzhun Patient Education ? 2022 [employer]. [facility] Urology Office/Clinic Noteon 05-10-2023 Urology Office/Clinic [...] Bactrim x 3 days empirically. went to [place] [facility] next day bc blood persisted. CT [...] Urology [address], [place] [address]- Additional Instructions: w/PVR Patient Education Hematuria, Adult I, Johana De Jesus , personally scribed for Dr. Marshall on 05/10/2023 11:52:58. . Portions of this record may have been created with voice recognition artificial intelligence software, specifically [employer], [employer] and or [employer]. Substitutions may have occurred due to the [...] (more content not included)... Normal [facility] Comment on above: Result Comment: Elec tronically Signed By: Rishi MARSHALL MD\.br\Date and Time Signed: 05/10/23 11:55 EST\.br\Electronically Co-Signed By: Johana De Jesus\.br\Date and Time Co-Signed: 05/10/23 11:53 EST [facility] - MIS [id number]# 1.00TIFF Normal [facility] Reportson 04-15-2023 Lab Reports [id number]# 1.00TIFF Normal [facility] Operative Reporton Operative Report [id number] #1.00TIFF Normal [facility] 04-08-2023 Lab Reports [id number] #1.00TIFF Normal [facility] Insurance Correspondenceon 1 05-30-2022 Insurance Correspondence [id number] 4#1.00TIFF Normal [facility] Consent for Procedure/Surger yon 03-24-2023 Consent for Procedure/Surgery [id number]#1.00TIFF Normal [facility] CT ABDOMEN PELVIS W IV CONTR Derrick [...] Jennie Hernández MD 03/11/23 Final result Normal [facility] Cult,Urineon 03-11-2023 Cult,Urine Specimen Description .CLEAN CATCH URINE Culture NO SIGNIFICANT GROWTH Report Status FINAL 03/11/2023 Normal [facility] Comment on above: Performed By: #### D DEBBI, CDP, CP, MG #### [address] [place], [place] [address]183 Resource Conservation Manager: Cholo Alicea MD CBC with Diffon 03-10-2023 Abs. Basophil 0.05 k/uL Normal 0.00-0.20 [facility] Comment on above: Performed By: #### D DEBBI, CDP, CP, MG #### [address] [place], [place] [id number] Resource Conservation Manager: Cholo Alicea MD Abs.Imm.Granulocyte <0.03 Normal 0.00-0.30 [facility] Comment on above: Performed By: #### D DEBBI, CDP, CP, MG #### [address] [place], [place] [id number] Resource Conservation Manager: Cholo Alicea MD Abs.Neutrophil (Seg) 3.36 k/uL Normal 1.50-8.10 [facility] Comment on above: Performed By: #### D DEBBI, CDP, CP, MG #### [address] [place] [address] Resource Conservation Manager: Cholo Alicea MD Basophils/100 WBC (Bld) 1 % Normal 0-2 M [facility] Comment on above: Performed By: #### D DEBBI, CDP, CP, MG #### [address] [place], [place] 0988383 Resource Conservation Manager: Cholo Alicea MD Eosinophils (Bld) [#/Vol] 0.05 10*3/uL Normal 0.00-0.44 [facility] Comment on above: Performed By: #### D DEBBI, CDP, CP, MG #### [address] [place], [place] 6582083 Resource Conservation Manager: Cholo Alicea MD Eosinophils/100 WBC (Bld) 1 % Normal 1-4 [facility] Comment on above: Performed By: #### D DEBBI, CDP, CP, MG #### [address] [place], [place] 6782183 Resource Conservation Manager: Cholo Alicea MD Erythrocyte distribution width (RBC) [Ratio] 11.9 % Normal 11.8-14.4 [facility] Comment on above: Performed By: #### D DEBBI, CDP, CP, MG #### [address] [place], [facility] Resource Conservation Manager: Cholo Alicea MD Hematocrit (Bld) [Volume fraction] 37.5 % Normal 36.3-47.1 [facility] Comment on above: Performed By: #### D DEBBI, CDP, CP, MG #### [address] [place], [place] 1055183 Resource Conservation Manager: Cholo Alicea MD Hemoglobin (Bld) [Mass/Vol] 12.9 g/dL Normal 11.9-15.1 [facility] Comment on above: Performed By: #### D DEBBI, CDP, CP, MG #### [address] [place], [place] [id number] Resource Conservation Manager: Cholo Alicea MD Immature granulocytes/100 WBC (Bld) 0 % Normal 0 [facility] Comment on above: Performed By: #### D DEBBI, CDP, CP, MG #### [address] [place] [address] Resource Conservation Manager: Cholo Alicea MD Lymphocytes (Bld) [#/Vol] 2.79 10*3/uL Normal 1.10-3.70 [facility] Comment on above: Performed By: #### D DEBBI, CDP, CP, MG #### [address] [place], [place] 1396383 Resource Conservation Manager: Cholo Alicea MD Lymphocytes/100 WBC (Bld) 42 % Normal 24-43 [facility] Comment on above: Performed By: #### D DEBBI, CDP, CP, MG #### [address] [place], [place] 3546783 Resource Conservation Manager: Cholo Alicea MD MCH (RBC) [Entitic mass] 30.4 pg Normal 25.2-33.5 [facility] Comment on above: Performed By: #### D DEBBI, CDP, CP, MG #### [address] [place], [facility] Resource Conservation Manager: Cholo Alicea MD MCHC (RBC) [Mass/Vol] 34.4 g/dL Normal 28.4-34.8 [facility] Comment on above: Performed By: #### D DEBBI, CDP, CP, MG #### [address] [place], [place] 7001783 Resource Conservation Manager: Cholo Alicea MD MCV (RBC) [Entitic vol] 88.2 fL Normal 82.6-102.9 M [facility] Comment on above: Performed By: #### D DEBBI, CDP, CP, MG #### [address] [place], [place] 1704283 Resource Conservation Manager: Cholo Alicea MD Monocytes (Bld) [#/Vol] 0.46 10*3/uL Normal 0.10-1.20 [facility] Comment on above: Performed By: #### D DEBBI, CDP, CP, MG #### [address] [place], [place] 2922983 Resource Conservation Manager: Cholo Alicea MD Monocytes/100 WBC (Bld) 7 % Normal 3-12 M [facility] Comment on above: Performed By: #### D DEBBI, CDP, CP, MG #### [facility] [address] [place], [place] 2413683 Resource Conservation Manager: Cholo Alicea MD Neutrophil (Seg) 49 % Normal 36-65 [facility] Comment on above: Performed By: #### D DEBBI, CDP, CP, MG #### [facility] [address] [place], [place] 4831783 Resource Conservation Manager: Cholo Alicea MD NRBC Automated 0.0 per 100 WBC Normal 0.0 [facility] Comment on above: Performed By: #### D DEBBI, CDP, CP, MG #### [facility] [address] [place] [address] Dr[place], [place] 0831083 Resource Conservation Manager: Cholo Alicea MD Platelet mean volume (Bld) [Entitic vol] 10.5 fL Normal 8.1-13.5 [facility] Comment on above: Performed By: #### D DEBBI, CDP, CP, MG #### [address] [place], [place] 3129983 Resource Conservation Manager: Cholo Alicea MD Platelets (Bld) [#/Vol] 320 10*3/uL Normal 138-453 [facility] Comment on above: Performed By: #### D DEBBI, CDP, CP, MG #### [facility] [address] [place], [place] 9960083 Resource Conservation Manager: Cholo Alicea MD RBC (Bld) [#/Vol] 4.25 10*6/uL Normal 3.95-5.11 [facility] Comment on above: Performed By: #### D DEBBI, CDP, CP, MG #### [facility] [address] [place], [place] 0907783 Resource Conservation Manager: Cholo Alicea MD WBC (Bld) [#/Vol] 6.7 10*3/uL Normal 3.5-11.3 [facility] Comment on above: Performed By: #### D DEBBI, CDP, CP, MG #### [facility] [address] [place], [place] 0123783 Resource Conservation Manager: Cholo Alicea MD Comp Metabolic Profon 2022 Albumin [Mass/Vol] 4.6 g/dL Normal 3.5-5.2 [facility] Comment on above: Performed By: #### D DEBBI, CDP, CP, MG #### [facility] [address] [place] [address] Dr[place], [place] 8192483 Resource Conservation Manager: Cholo Alicea MD Albumin/Glob Ratio 1.5 Normal 1.0-2.5 [facility] Comment on above: Performed By: #### D DEBBI, CDP, CP, MG #### [facility] [address] [place] [address] [place], [place] 9984083 Resource Conservation Manager: Cholo Alicea MD Alkaline Phos 72 U/L Normal 35-104 [facility] Comment on above: Performed By: #### D DEBBI, CDP, CP, MG #### [address] [place], [place] 5343783 Resource Conservation Manager: Cholo Alicea MD ALT [Catalytic activity/Vol] 42 U/L High 5-33 [facility] Comment on above: Performed By: #### D DEBBI, CDP, CP, MG #### [facility] [address] [place] [address] [place], [place] 5097583 Resource Conservation Manager: Cholo Alicea MD Anion gap [Moles/Vol] 11 mmol/L Normal 9-17 [facility] Comment on above: Performed By: #### D DEBBI, CDP, CP, MG #### [facility] [address] [place] [address] Dr[place], [place] 8324083 Resource Conservation Manager: Cholo Alicea MD AST [Catalytic activity/Vol] 31 U/L Normal <32 [facility] Comment on above: Performed By: #### D DEBBI, CDP, CP, MG #### [facility] [address] [place] [address] [place] [address] Resource Conservation Manager: Cholo Alicea MD Bilirubin [Mass/Vol] 0.4 mg/dL Normal 0.3-1.2 [facility] Comment on above: Performed By: #### D DEBBI, CDP, CP, MG #### [facility] [address] [place] [address] [place], [place] 0000683 Resource Conservation Manager: Cholo Alicea MD BUN/CRE Ratio 10 Normal 9-20 [facility] Comment on above: Performed By: #### D DEBBI, CDP, CP, MG #### [facility] [address] [place] [address] Dr[place], [place] 0135483 Resource Conservation Manager: Cholo Alicea MD Calcium [Mass/Vol] 10.4 mg/dL Normal 8.6-10.4 [facility] Comment on above: Performed By: #### D DEBBI, CDP, CP, MG #### [address] [place], [place] 3378583 Resource Conservation Manager: Cholo Alicea MD Chloride [Moles/Vol] 101 mmol/L Normal 98-107 [facility] Comment on above: Performed By: #### D DEBBI, CDP, CP, MG #### [facility] [address] [place] [address] [place] [address] Resource Conservation Manager: Cholo Alicea MD CO2 [Moles/Vol] 26 mmol/L Normal 20-31 [facility] Comment on above: Performed By: #### D DEBBI, CDP, CP, MG #### [facility] [address] [place] [address] [place] [address] Resource Conservation Manager: Cholo Alicea MD Creatinine [Mass/Vol] 0.9 mg/dL Normal 0.5-0.9 [facility] Comment on above: Performed By: #### D DEBBI, CDP, CP, MG #### [address] [place] [address] Resource Conservation Manager: Cholo Alicea MD GFR/1.73 sq M.predicted among non-blacks MDRD (S/P/Bld) [Vol rate/Area] mL/min/{1.73_m2} Normal >60 [facility] Comment on above: Result Comment: These [...] #### D DEBBI, CDP, CP, MG #### [address] [place] [address] Resource Conservation Manager: Cholo Alicea MD Glucose [Mass/Vol] 97 mg/dL Normal 70-99 [facility] Comment on above: Performed By: #### D EDBBI, CDP, CP, MG #### [address] [place] [address] Resource Conservation Manager: Cholo Alicea MD Potassium [Moles/Vol] 4.2 mmol/L Normal 3.7-5.3 [facility] Comment on above: Performed By: #### D DEBBI, CDP, CP, MG #### [address] [place] [address] Resource Conservation Manager: Cholo Alicea MD Protein [Mass/Vol] 7.6 g/dL Normal 6.4-8.3 [facility] Comment on above: Performed By: #### D DEBBI, CDP, CP, MG #### [address] [place] [address] Resource Conservation Manager: Cholo Alicea MD Sodium [Moles/Vol] 138 mmol/L Normal 135-144 [facility] Comment on above: Performed By: #### D DEBBI, CDP, CP, MG #### [facility] [address] [place] [address] Resource Conservation Manager: Cholo Alicea MD Urea nitrogen [Mass/Vol] 9 mg/dL Normal 6-20 [facility] Comment on above: Performed By: #### D DEBBI, CDP, CP, MG #### [facility] [address] [place] [address] Resource Conservation Manager: Cholo Alicea MD Creatine Kinaseon 03-10-2023 CK [Catalytic activity/Vol] 51 U/L Normal 26-192 [facility] Comment on above: Performed By: #### D DEBBI, CDP, CP, MG #### [facility] [address] [place] [address] Resource Conservation Manager: Cholo Alicea MD HCG, ,Urineon 03-10 Beta HCG ( test) Ql (U) Negative Normal NEG [facility] Comment on above: Result Comment: Spec imens with hCG levels near the threshold of the test (25 mIU/mL) may give a negative or indeterminate result. In such cases, another test should be performed with a new specimen in 48-72 hours. If early is suspected clinically in this setting, correlation with quantitative serum b-hCG level is suggested. [facility] has confirmed the use of plasma for this test. This has not been cleared or approved by the U.S. Food and Drug Administration. The FDA has determined that such clearance is not necessary. Performed By: #### D DEBBI, CDP, CP, MG #### [facility] [address] [place] [address] Resource Conservation Manager: Cholo Alicea MD Urinalysis w/ Microon 2022 Bacteria TRACE Abnormal NONE [facility] Comment on above: Performed By: #### D DEBBI, CDP, CP, MG #### [facility] [address] [place], [place] [id number] Resource Conservation Manager: Cholo Alicea MD Bilirubin, SemiQt,Ur Negative Normal NEG [facility] Comment on above: Performed By: #### D DEBBI, CDP, CP, MG #### [facility] [address] [place] [address] [place], [place] 0063583 Resource Conservation Manager: Cholo Alicea MD Blood, Urine Negative Normal NEG [facility] Comment on above: Performed By: #### D DEBBI, CDP, CP, MG #### [address] [place], [place] 2537083 Resource Conservation Manager: Cholo Alicea MD Clarity (U) Clear Normal CLEAR [facility] Comment on above: Performed By: #### D DEBBI, CDP, CP, MG #### [address] [place], [place] 7495783 Resource Conservation Manager: Cholo Alicea MD Color (U) Yellow Normal YEL [facility] Comment on above: Performed By: #### D DEBBI, CDP, CP, MG #### [address] [place] [address] Resource Conservation Manager: Cholo Alicea MD Epithelial cells LM Ql (Urine sed) 0 TO 2 Normal 0-25 [facility] Comment on above: Performed By: #### D DEBBI, CDP, CP, MG #### [facility] [address] [place] [address] Dr[place], [place] 5788983 Resource Conservation Manager: Cholo Alicea MD Glucose Ql (U) Negative Normal NEG [facility] Comment on above: Performed By: #### D DEBBI, CDP, CP, MG #### [facility] [address] [place] [address] Dr[place], [place] 9954783 Resource Conservation Manager: Cholo Alicea MD Ketones Ql (U) Negative Normal NEG [facility] Comment on above: Performed By: #### D DEBBI, CDP, CP, MG #### [facility] [address] [place] [address] Dr[place], [place] 5094383 Resource Conservation Manager: Cholo Alicea MD Leukocyte esterase Test strip Ql (U) Negative Normal NEG [facility] Comment on above: Performed By: #### D DEBBI, CDP, CP, MG #### [address] [place] [address] Resource Conservation Manager: Cholo Alicea MD Nitrite,Ur Negative Normal NEG [facility] Comment on above: Performed By: #### D DEBBI, CDP, CP, MG #### [address] [place], [place] 5934183 Resource Conservation Manager: Cholo Alicea MD PH,Ur 7.5 Normal 5.0-9.0 [facility] Comment on above: Performed By: #### D DEBBI, CDP, CP, MG #### [address] [place], [place] 6533183 Resource Conservation Manager: Cholo Alicea MD Protein Ql (U) Negative Normal NEG [facility] Comment on above: Performed By: #### D DEBBI, CDP, CP, MG #### [address] [place] [address] Resource Conservation Manager: Cholo Alicea MD Spec. [place],Ur 1.010 Normal 1.010-1.020 [facility] Comment on above: Performed By: #### D DEBBI, CDP, CP, MG #### [address] [place], [place] 9367583 Resource Conservation Manager: Cholo Alicea MD Urine RBC's None Normal 0-2 [facility] Comment on above: Performed By: #### D DEBBI, CDP, CP, MG #### [facility] [address] [place], [place] 2063783 Resource Conservation Manager: Cholo Alicea MD Urine WBC's 0 TO 2 Normal 0-5 [facility] Comment on above: Performed By: #### D DEBBI, CDP, CP, MG #### [facility] [address] [place] [address] Resource Conservation Manager: Cholo Alicea MD Urobilinogen,Ur Normal Normal 0.0-1.0 [facility] Comment on above: Performed By: #### D DEBBI, CDP, CP, MG #### [facility] [address] [place] [address] Resource Conservation Manager: Cholo Alicea MD COVID + FLU Quick Testingon 02-11-2023 SARS-CoV-2 (COVID-19) RNA ALEKSANDER+probe Ql (Unsp spec) Negative [employer] Other COVID + FLU Quick Testing Negative [employer] Other Quick Strepon 02-11-2023 S. pyogenes Org specific cx Ql (Throat) Negative [employer] Other Quick Strep [employer] Other CNPNon 02-03-2023 CNPN Telephone (GASTSP) LULÚ GAITAN ([id number]) 1995 F Date Time Provider Department 02/03/23 CHRISTINE MACIAS [facility] During your visit today, we recorded [...] full name of hospital or facility)? [facility] If the patient had a gastric [...] G/J Tube?No Preferred phone number for contact: [phone] ? Viviana David 02/03/2023 3:38 PM Signed [...] by VIVIANA DAVID on 02/04/23 Normal [facility] ECG 12 lead ECGon 02-03-2023 ECG 12 lead ECG [facility] [place] [address] [place] [address] Electrocardiograph Report Signed Patient: Lulú Gaitan MR#: [id number] 4 : 1995 Acct:[id number] Age/Sex: 27 / F ADM Date: 02/02/23 Loc: Room: [address] [place] [address] Type: ADM IN Attending Dr: Karri Kamara [...] Mauro MD 0 02/04/23 1319 Normal [facility] Alanine aminotransferase [En zymatic activity/volume] in Serum or PlasmaOrdered By: Matthew Leslie on 02-02-2023 ALT [Catalytic activity/Vol] 38 U/L Normal 7-52 [facility] Comment on above: Performed By: #### C ASIM BARONE, MARICRUZ, URDS #### [facility] [address] Albumin [Mass/volume] in Ser um or Plasma by Bromocresol green (BCG) dye binding methoOrdered By: Matthew Leslie on 02-02-2023 Albumin BCG dye [Mass/Vol] 4.6 g/dL 3.5-5.7 [facility] Alkaline phosphatase [Enzyma tic activity/volume] in Serum or PlasmaOrdered By: Matthew Leslie on 02-02-2023 ALP [Catalytic activity/Vol] 54 U/L Normal 34-104 [facility] Comment on above: Performed By: #### C POPEYE BARONEG, MARICRUZ, URDS #### [facility] [address] Amphetamine Screen Ql (U)Ord ered By: Matthew Leslie on 02-02-2023 Amphetamines Ql (U) Negative Negative [facility] Aspartate aminotransferase [ Enzymatic activity/volume] in Serum or PlasmaOrdered By: Matthew Leslie on 02-02-2023 AST [Catalytic activity/Vol] 32 U/L Normal 13-39 [facility] Comment on above: Performed By: #### C UU, UHCG, ADDONUAPLUS, URDS #### [facility] [address] [place] [address] Automated basophil %Ordered By: Matthew Leslie on 02-02-2023 Basophils/100 WBC (Bld) 0.9 % Normal . [facility] Comment on above: Performed By: #### E TANYA, HEPATIC, TSH3 wRFLX, CBC, CMP, [id number] #### [address] Automated basophil countOrde red By: Matthew Leslie on 02-02-2023 Basophils (Bld) [#/Vol] 0.1 10*3/uL Normal 0.0-0.2 [facility] Comment on above: Result Comment: PERF ORMED BY: [place] [address] PATHOLOGIST HOT END OPERATOR MOISES VELASCO M.D. Performed By: #### E TANYA, HEPATIC, TSH3 wRFLX, CBC, CMP, [id number] #### [address] Automated blood monocyte cou ntOrdered By: Matthew Leslie on 02-02-2023 Monocytes (Bld) [#/Vol] 0.6 10*3/uL Normal 0.0-0.8 [facility] Comment on above: Performed By: #### E TANYA, HEPATIC, TSH3 wRFLX, CBC, CMP, [id number] #### [address] Automated eosinophil %Ordere d By: Matthew Leslie on 02-02-2023 Eosinophils/100 WBC (Bld) 0.4 % Normal . [facility] Comment on above: Performed By: #### E TANYA, HEPATIC, TSH3 wRFLX, CBC, CMP, [id number] #### [facility] [address] Automated eosinophil countOr dered By: Matthew Leslie on 02-02-2023 Eosinophils (Bld) [#/Vol] 0.0 10*3/uL Normal 0.0-0.45 [facility] Comment on above: Performed By: #### E TANYA, HEPATIC, TSH3 wRFLX, CBC, CMP, [id number] #### [facility] [address] Automated erythrocytes count in urine sediment (number/area)Ordered By: Matthew Leslie on 02-02-2023 RBC Auto (Urine sed) [#/Area] 10-19 [HPF] 0-4 [facility] Automated leukocytes count i n urine sediment (number/area)Ordered By: Matthew Leslie on 02-02-2023 WBC Auto (Urine sed) [#/Area] 10-19 [HPF] 0-4 [facility] Automated monocyte %Ordered By: Matthew Leslie on 02-02-2023 Monocytes/100 WBC (Bld) 7.9 % Normal . [facility] Comment on above: Performed By: #### E TANYA, HEPATIC, TSH3 wRFLX, CBC, CMP, [id number] #### [facility] [address] Automated neutrophil %Ordere d By: Matthew Leslie on 02-02-2023 Neutrophils/100 WBC (Bld) 54.8 % Normal . [facility] Comment on above: Performed By: #### E TANYA, HEPATIC, TSH3 wRFLX, CBC, CMP, [id number] #### [facility] [address] Automated urine color determ inationOrdered By: Matthew Leslie on 02-02-2023 Color (U) Yellow Normal Yellow [facility] Comment on above: Order Comment: Name Collection Type:: Clean-Voided Midstream Performed By: #### C UU, UHCG, ADDONUAPLUS, URDS #### [facility] [address] Automated urine hyaline cast s count (number/volume)Ordered By: Matthew Leslie on 02-02-2023 Hyaline casts Auto (U) [#/Vol] 0-1 [LPF] 0-1 [facility] Barbiturates [Presence] in U rine by Screen methodOrdered By: Matthew Leslie on 02-02-2023 Barbiturates Screen Ql (U) Negative Negative [facility] Benzodiazepines Screen Ql (U )Ordered By: Matthew Leslie on 02-02-2023 Benzodiazepines Ql (U) Negative Negative [facility] Benzoylecgonine [Presence] i n Urine by Screen methodOrdered By: Matthew Leslie on 02-02-2023 Benzoylecgonine Screen Ql (U) Negative Negative [facility] Bilirubin Test strip Ql (U)O rdered By: Matthew Leslie on 02-02-2023 Bilirubin Ql (U) Negative Negative [facility] Bilirubin.direct [Mass/volum e] in Serum or PlasmaOrdered By: Matthew Leslie on 02-02-2023 Bilirubin.direct [Mass/Vol] 0.10 mg/dL 0.03-0.18 [facility] Bilirubin.total [Mass/volume ] in Serum or PlasmaOrdered By: Matthew Leslie on 02-02-2023 Bilirubin [Mass/Vol] 0.6 mg/dL Normal 0.3-1.0 [facility] Comment on above: Performed By: #### C UU, JULIANECG, MARICRUZ, URDS #### [facility] [address] [place] [address] [place] Calcium [Mass/volume] in Ser um or PlasmaOrdered By: Matthew Leslie on 02-02-2023 Calcium [Mass/Vol] 9.5 mg/dL Normal 8.6-10.3 [facility] Comment on above: Performed By: #### C UU, UHCG, ADDONUAPLUS, URDS #### [facility] [address] Cannabinoids [Presence] in U rine by Screen methodOrdered By: Matthew Leslie on 02-02-2023 Cannabinoids Screen Ql (U) Negative Negative [facility] Comment on above: These are unconfirme d results and should not be used for legal purposes. Drug Cut-Off Concentration: AMPH 1000 ng/mL PONCHO 200 ng/mL KRISTAN 200 ng/mL COCM 300 ng/mL OP 300 ng/mL PCP 25 ng/mL THC 20 ng/mL Carbon dioxide, total [Moles /volume] in Serum or PlasmaOrdered By: Matthew Leslie on 02-02-2023 CO2 [Moles/Vol] 28.3 mmol/L Normal 21.0-31.0 [facility] Comment on above: Performed By: #### C UU, UHCG, ADDONUAPLUS, URDS #### [facility] [address] Casts typing in urine sedime nt by light microscopyOrdered By: Matthew Leslie on 02-02-2023 Casts LM Nom (Urine sed) None seen [LPF] None Seen [facility] Chloride [Moles/volume] in S barbra or PlasmaOrdered By: Matthew Leslie on 02-02-2023 Chloride [Moles/Vol] 107 mmol/L Normal 98-107 [facility] Comment on above: Performed By: #### C UU, UHCG, ADDONUAPLUS, URDS #### [facility] [address] Complete Blood Count Auto Di ffon 02-02-2023 Mean Corpuscular HGB Conc 33.6 g/dL Normal 32.0-35.0 [facility] Comment on above: Performed By: #### E TANYA, HEPATIC, TSH3 wRFLX, CBC, CMP, [id number] #### [facility] [address] [place] [address] [place] Monocytes/100 WBC (Bld) 17.83 % Normal 0.00-20.00 [facility] Comment on above: Performed By: #### E TANYA, HEPATIC, TSH3 wRFLX, CBC, CMP, [id number] #### [facility] [address] [place] [address] [place] NRBC% 0.0 /100{WBC} Normal 0-0.5 [facility] Comment on above: Performed By: #### E TANYA, HEPATIC, TSH3 wRFLX, CBC, CMP, [id number] #### [address] Comprehensive Metabolic Pane haile 02-02-2023 Albumin [Mass/Vol] 4.6 g/dL Normal 3.5-5.7 [facility] Comment on above: Performed By: #### C UU, UHCG, ADDONUAPLUS, URDS #### [address] Creatinine Clr Calc Pharmacy 76.05 Normal [facility] Comment on above: Result Comment: PERF ORMED BY: [place] [address] PATHOLOGIST HOT END OPERATOR MOISES VELASCO M.D. Performed By: #### C UU, UHCG, ADDONUAPLUS, URDS #### [address] GFR/1.73 sq M.predicted MDRD (S/P/Bld) [Vol rate/Area] mL/min/{1.73_m2} Normal [facility] Comment on above: Performed By: #### C UU, UHCG, ADDONUAPLUS, URDS #### [address] Creatinine [Mass/volume] in Serum or PlasmaOrdered By: Matthew Leslie on 02-02-2023 Creatinine [Mass/Vol] 1.14 mg/dL Normal 0.60-1.20 [facility] Comment on above: Performed By: #### C UU, UHCG, ADDONUAPLUS, URDS #### [place] [address] [place] Dipstick and Microscopicon 0 02-02-2023 Appearance (U) Cloudy Critically abnormal Clear [facility] Comment on above: Order Comment: Name Collection Type:: Clean-Voided Midstream Performed By: #### C UU, UHCG, ADDONUAPLUS, URDS #### [address] [place] [address] [place] Bacteria,Urine 1+ High None Seen [facility] Comment on above: Order Comment: Name Collection Type:: Clean-Voided Midstream Performed By: #### C UU, UHCG, ADDONUAPLUS, URDS #### [facility] [address] Bilirubin,Urine Negative Normal Negative [facility] Comment on above: Order Comment: Name Collection Type:: Clean-Voided Midstream Performed By: #### C UU, UHCG, ADDONUAPLUS, URDS #### [address] Glucose Ql (U) Normal Normal Normal [facility] Comment on above: Order Comment: Name Collection Type:: Clean-Voided Midstream Performed By: #### C UU, UHCG, ADDONUAPLUS, URDS #### [place] [address] [place] Hyaline Casts,Urine 0-1 Normal 0-1 [facility] Comment on above: Order Comment: Name Collection Type:: Clean-Voided Midstream Performed By: #### C UU, UHCG, ADDONUAPLUS, URDS #### [place] [address] [place] Ketones Ql (U) 2+ High Negative [facility] Comment on above: Order Comment: Name Collection Type:: Clean-Voided Midstream Performed By: #### C UU, UHCG, ADDONUAPLUS, URDS #### [place] [address] [place] Leukocyte esterase Test strip Ql (U) 2+ High Negative [facility] Comment on above: Order Comment: Name Collection Type:: Clean-Voided Midstream Performed By: #### C UU, UHCG, ADDONUAPLUS, URDS #### [place] [address] [place] Nitrite,Urine Negative Normal Negative [facility] Comment on above: Order Comment: Name Collection Type:: Clean-Voided Midstream Performed By: #### C UU, UHCG, ADDONUAPLUS, URDS #### [address] Occult Blood,Urine 3+ High Negative [facility] Comment on above: Order Comment: Name Collection Type:: Clean-Voided Midstream Performed By: #### C UU, UHCG, ADDONUAPLUS, URDS #### [address] Other Casts,Urine None Seen Normal None Seen [facility] Comment on above: Order Comment: Name Collection Type:: Clean-Voided Midstream Performed By: #### C UU, UHCG, ADDONUAPLUS, URDS #### [address] RBC,Urine 10-19 High 0-4 [facility] Comment on above: Order Comment: Name Collection Type:: Clean-Voided Midstream Performed By: #### C UU, UHCG, ADDONUAPLUS, URDS #### [address] Specificy [place],Urine 1.027 Normal 1.001-1.030 [facility] Comment on above: Order Comment: Name Collection Type:: Clean-Voided Midstream Performed By: #### C UU, UHCG, ADDONUAPLUS, URDS #### [address] Squamous Epithelial Cell,Urine 3-4 High 0-2 [facility] Comment on above: Order Comment: Name Collection Type:: Clean-Voided Midstream Performed By: #### C UU, UHCG, ADDONUAPLUS, URDS #### [address] Urobilinogen,Urine Normal Normal Normal [facility] Comment on above: Order Comment: Name Collection Type:: Clean-Voided Midstream Performed By: #### C UU, UHCG, ADDONUAPLUS, URDS #### [address] WBC,Urine 10-19 High 0-4 [facility] Comment on above: Order Comment: Name Collection Type:: Clean-Voided Midstream Performed By: #### C UU, UHCG, ADDONUAPLUS, URDS #### [address] Yeast,Urine None Seen Normal None Seen [facility] Comment on above: Order Comment: Name Collection Type:: Clean-Voided Midstream Performed By: #### C UU, UHCG, ADDONUAPLUS, URDS #### [address] Drug Screen,Urineon 02-03-20 Amphetamine Screen,Urine Negative Normal Negative [facility] Comment on above: Performed By: #### C UU, UHCG, ADDONUAPLUS, URDS #### [address] Barbiturate Screen,Urine Negative Normal Negative [facility] Comment on above: Performed By: #### C UU, UHCG, ADDONUAPLUS, URDS #### [address] Benzodiazepines Screen,Urine Negative Normal Negative [facility] Comment on above: Performed By: #### C UU, UHCG, ADDONUAPLUS, URDS #### [address] Cannabinoid Screen,Urine Negative Normal Negative [facility] Comment on above: Result Comment: Thes e are unconfirmed results and should not be used for legal purposes. Drug Cut-Off Concentration: AMPH 1000 ng/mL PONCHO 200 ng/mL KRISTAN 200 ng/mL COCM 300 ng/mL OP 300 ng/mL PCP 25 ng/mL THC 20 ng/mL PERFORMED BY: [place] [address] PATHOLOGIST HOT END OPERATOR MOISES VELASCO M.D. Performed By: #### C UU, UHCG, ADDONUAPLUS, URDS #### [address] [place] [address] [place] Cocaine Screen,Urine Negative Normal Negative [facility] Comment on above: Performed By: #### C UU, UHCG, ADDONUAPLUS, URDS #### [facility] [address] Opiate Screen,Urine Negative Normal Negative [facility] Comment on above: Performed By: #### C UU, UHCG, ADDONUAPLUS, URDS #### [address] Phencyclidine Screen,Urine Negative Normal Negative [facility] Comment on above: Performed By: #### C UU, UHCG, ADDONUAPLUS, URDS #### [address] Erythrocyte distribution wid th [Ratio] by Automated countOrdered By: Matthew Leslie on 02-02-2023 Erythrocyte distribution width (RBC) [Ratio] 12.9 % Normal 11.9-15.3 [facility] Comment on above: Performed By: #### E TANYA, HEPATIC, TSH3 wRFLX, CBC, CMP, [id number] #### [address] Erythrocytes [#/volume] in B lood by Automated countOrdered By: Matthew Leslie on 02-02-2023 RBC (Bld) [#/Vol] 4.70 10*6/uL Normal 3.60-5.00 [facility] Comment on above: Performed By: #### E TANYA, HEPATIC, TSH3 wRFLX, CBC, CMP, [id number] #### [address] Ethanol [Mass/volume] in Ser um or PlasmaOrdered By: Matthew Leslie on 02-02-2023 Ethanol [Mass/Vol] mg/dL Normal [facility] Comment on above: Performed By: #### E TANYA, HEPATIC, TSH3 wRFLX, CBC, CMP, [id number] #### [address] Ethanol [Mass/Vol] TNP [facility] Comment on above: Test not performed Ethyl Alcohol Profileon Percent Ethanol Not performed Normal [facility] Comment on above: Result Comment: PERF ORMED BY: [place] [id number] PATHOLOGIST HOT END OPERATOR MOISES VELASCO M.D. Performed By: #### E TANYA, HEPATIC, TSH3 wRFLX, CBC, CMP, [id number] #### [facility] [address] [place] [address] [place] Glucose [Mass/volume] in Ser um or PlasmaOrdered By: Matthew Leslie on 02-02-2023 Glucose [Mass/Vol] 98 mg/dL Normal 70-100 [facility] Comment on above: ADA recommended refe rence rangeRandom Glucose Reference Range is dependent on time and content of last meal. Glucose of more than 200 mg/dL in a nonstressed, ambulatory subject supports the diagnosis of Diabetes Mellitus. Result Comment: [place] om Glucose Reference Range is dependent on time and content of last meal. Glucose of more than 200 mg/dL in a nonstressed, ambulatory subject supports the diagnosis of Diabetes Mellitus. ADA recommended reference range Performed By: #### C UU, UHCG, ADDONUAPLUS, URDS #### [facility] [address] [place] [address] [place] HCG ( test) IA.rapi d Ql (U)Ordered By: Matthew Leslie on 02-02-2023 HCG ( test) Ql (U) Negative [facility] HCG,Urineon 02-02-2023 Beta HCG ( test) Ql (U) Negative Normal [facility] Comment on above: Order Comment: Name Collection Type:: Clean-Voided Midstream Result Comment: PERF ORMED BY: [address] [id number] PATHOLOGIST HOT END OPERATOR MOISES VELASCO M.D. Performed By: #### C UU, UHCG, ADDONUAPLUS, URDS #### [facility] [address] [place] [address] [place] Hematocrit [Volume Fraction] of Blood by Automated countOrdered By: Matthew Leslie on 02-02-2023 Hematocrit (Bld) [Volume fraction] 41.1 % Normal 34.0-46.4 [facility] Comment on above: Performed By: #### E TANYA, HEPATIC, TSH3 wRFLX, CBC, CMP, [id number] #### [facility] [address] Hemoglobin [Mass/volume] in BloodOrdered By: Matthew Leslie on 02-02-2023 Hemoglobin (Bld) [Mass/Vol] 13.8 g/dL Normal 11.8-15.4 [facility] Comment on above: Performed By: #### E TANYA, HEPATIC, TSH3 wRFLX, CBC, CMP, [id number] #### [facility] [address] Hepatic Panelon 02-02-2023 Bilirubin,Indirect 0.5 mg/dL Normal [facility] Comment on above: Performed By: #### C UU, UHCG, ADDONUAPLUS, URDS #### [facility] [address] Bilirubin.indirect [Mass/Vol] 0.10 mg/dL Normal 0.03-0.18 [facility] Comment on above: Performed By: #### C UU, UHCG, ADDONUAPLUS, URDS #### [facility] [address] Ketones Auto test strip (U) [Mass/Vol]Ordered By: Matthew Leslie on 02-02-2023 Ketones (U) [Mass/Vol] 2+ Negative [facility] Leukocytes [#/volume] correc alberto for nucleated erythrocytes in Blood by Automated counOrdered By: Matthew Leslie on 02-02-2023 WBC corrected for nucl RBC Auto (Bld) [#/Vol] 7.6 10*3/uL 3.8-11.6 [facility] Leukocytes [#/volume] in Blo od by Automated countOrdered By: Matthew Leslie on 02-02-2023 WBC (Bld) [#/Vol] 7.6 10*3/uL Normal 3.8-11.6 [facility] Comment on above: Performed By: #### E TANYA, HEPATIC, TSH3 wRFLX, CBC, CMP, [id number] #### [facility] [address] Lymphocytes [#/volume] in Bl ood by Automated countOrdered By: Matthew Leslie on 02-02-2023 Lymphocytes (Bld) [#/Vol] 2.7 10*3/uL Normal 1.00-4.8 [facility] Comment on above: Performed By: #### E TANYA, HEPATIC, TSH3 wRFLX, CBC, CMP, [id number] #### [facility] [address] Lymphocytes/100 leukocytes i n Blood by Automated countOrdered By: Matthew Leslie on 02-02-2023 Lymphocytes/100 WBC (Bld) 36.0 % Normal . [facility] Comment on above: Performed By: #### E TANYA, HEPATIC, TSH3 wRFLX, CBC, CMP, [id number] #### [facility] [address] MCH [Entitic mass] by Automa alberto countOrdered By: Matthew Leslie on 02-02-2023 MCH (RBC) [Entitic mass] 29.4 pg Normal 24.7-34.3 [facility] Comment on above: Performed By: #### E TANYA, HEPATIC, TSH3 wRFLX, CBC, CMP, [id number] #### [facility] [address] MCHC Auto (RBC) [Mass/Vol]Or dered By: Matthew Leslie on 02-02-2023 MCHC (RBC) [Mass/Vol] 33.6 g/dL 32.0-35.0 [facility] MCV [Entitic volume] by Auto mated countOrdered By: Matthew Leslie on 02-02-2023 MCV (RBC) [Entitic vol] 87.6 fL Normal 80-100 [facility] Comment on above: Performed By: #### E TANYA, HEPATIC, TSH3 wRFLX, CBC, CMP, [id number] #### [facility] [address] Monocyte distribution width [Entitic volume] in Blood by AutomatedOrdered By: Matthew Leslie on 02-02-2023 Monocyte distribution width Auto (Bld) [Entitic vol] 17.83 % 0.00-20.00 [facility] Neutrophils [#/volume] in Bl ood by Automated countOrdered By: Matthew Leslie on 02-02-2023 Neutrophils (Bld) [#/Vol] 4.2 10*3/uL Normal 1.8-7.7 [facility] Comment on above: Performed By: #### E TANYA, HEPATIC, TSH3 wRFLX, CBC, CMP, [id number] #### [facility] [address] Nitrite Test strip Ql (U)Ord ered By: Matthew Leslie on 02-02-2023 Nitrite Ql (U) Negative Negative [facility] No Panel InformationOrdered By: Matthew Leslie on 02-02-2023 Estimated GFR (CKD-EPI) > 60.0 mL/Min [facility] Creatinine Clearance (Chem 76.05 [facility] Nucleated erythrocytes [Pres ence] in Blood by Automated countOrdered By: Matthew Leslie on 02-02-2023 Nucleated RBC Auto Ql (Bld) 0.0 /100{WBC} 0-0.5 [facility] Opiates [Presence] in Urine by Screen methodOrdered By: Matthew Leslie on 02-02-2023 Opiates Screen Ql (U) Negative Negative [facility] Phencyclidine Screen Ql (U)O rdered By: Matthew Leslie on 02-02-2023 Phencyclidine Ql (U) Negative Negative [facility] Platelet mean volume [Entiti c volume] in Blood by Automated countOrdered By: Matthew Leslie on 02-02-2023 Platelet mean volume (Bld) [Entitic vol] 9.2 fL Normal 6.3-10.7 [facility] Comment on above: Performed By: #### E TANYA, HEPATIC, TSH3 wRFLX, CBC, CMP, [id number] #### [facility] [address] Platelets [#/volume] in Bloo d by Automated countOrdered By: Matthew Leslie on 02-02-2023 Platelets (Bld) [#/Vol] 322 10*3/uL Normal 150-450 [facility] Comment on above: Performed By: #### E TANYA, HEPATIC, TSH3 wRFLX, CBC, CMP, [id number] #### [facility] [address] Potassium [Moles/volume] in Serum or PlasmaOrdered By: Matthew Leslie on 02-02-2023 Potassium [Moles/Vol] 3.8 mmol/L Normal 3.5-5.1 [facility] Comment on above: Performed By: #### C UU, UHCG, ADDONUAPLUS, URDS #### [facility] [address] [place] [address] Protein [Mass/volume] in Ser um or PlasmaOrdered By: Matthew Leslie on 02-02-2023 Protein [Mass/Vol] 7.8 g/dL Normal 6.4-8.9 [facility] Comment on above: Performed By: #### C UU, UHCG, ADDONUAPLUS, URDS #### [facility] [address] [place] [address] Serum globulin measurement b y calculation (mass/volume)Ordered By: Matthew Leslie on 02-02-2023 Globulin (S) [Mass/Vol] 3.2 g/dL Normal [facility] Comment on above: Performed By: #### C UU, UHCG, ADDONUAPLUS, URDS #### [facility] [address] Serum or plasma albumin/glob ulin mass ratioOrdered By: Matthew Leslie on 02-02-2023 Albumin/Globulin [Mass ratio] 1.4 {ratio} Normal [facility] Comment on above: Performed By: #### C UU, UHCG, ADDONUAPLUS, URDS #### [facility] [address] [place] [address] Serum or plasma anion gap de terminationOrdered By: Matthew Leslie on 02-02-2023 Anion gap [Moles/Vol] 9.5 mmol/L Normal 6.0-15.0 [facility] Comment on above: Performed By: #### C ASIM BARONE, BELIA ALCANTARA #### [facility] [address] Serum or plasma non-glucuron idated bilirubin measurement (mass/volume)Ordered By: Matthew Leslie on 02-02-2023 Bilirubin.indirect [Mass/Vol] 0.5 mg/dL [facility] Sodium [Moles/volume] in Ser um or PlasmaOrdered By: Matthew Leslie on 02-02-2023 Sodium [Moles/Vol] 141 mmol/L Normal 136-145 [facility] Comment on above: Performed By: #### C LIZABETH, ASIM, BELIA ALCANTARA #### [facility] [address] Specific gravity Auto test s trip (U) [Rel density]Ordered By: Matthew Leslie on 02-02-2023 Specific gravity (U) [Rel density] 1.027 1.001-1.030 [facility] Squamous epithelial cells de tection in urine sediment by light microscopyOrdered By: Matthew Leslie on 02-02-2023 Epithelial cells.squamous LM Ql (Urine sed) 3-4 [HPF] 0-2 [facility] Thyroid Stim Hormone w/Rflxo n 02-02-2023 Thyroid Stim Hormone w/Rflx 3.74 u[iU]/mL Normal 0.45-5.33 [facility] Comment on above: Performed By: #### C UU, JULIANECG, BELIA ALCANTARA #### [facility] [address] Thyrotropin [Units/volume] i n Serum or PlasmaOrdered By: Matthew Leslie on 02-02-2023 TSH Qn 3.74 m[IU]/L 0.45-5.33 [facility] Urea nitrogen [Mass/volume] in Serum or PlasmaOrdered By: Matthew Leslie on 02-02-2023 Urea nitrogen [Mass/Vol] 11 mg/dL Normal 7-25 [facility] Comment on above: Performed By: #### C UU, UHCG, ADDONUAPLUS, URDS #### [facility] [address] [place] [address] [place] Urine Cultureon 02-02-2023 Bacteria identified Cx Nom (U) No Growth 2 Days PERFORMED BY: [place] [address] PATHOLOGIST HOT END OPERATOR MOISES VELASCO M.D. Normal [facility] Comment on above: Performed By: #### C UU, UHCG, ADDONUAPLUS, URDS #### [facility] [address] Urine bacteria detection by automated methodOrdered By: Matthew Leslie on 02-02-2023 Bacteria Auto Ql (U) 1+ None Seen [facility] Urine clarity by refractomet ry automatedOrdered By: Matthew Leslie on 02-02-2023 Clarity Refractometry automated (U) Cloudy Clear [facility] Urine culture routineOrdered By: Matthew Leslie on 02-02-2023 Bacteria identified Cx Nom (U) No Growth 2 Days [facility] Urine glucose measurement by automated test strip (mass/volume)Ordered By: Matthew Leslie on 02-02-2023 Glucose Auto test strip (U) [Mass/Vol] Normal mg/dL Normal [facility] Urine hemoglobin detection b y automated test stripOrdered By: Matthew Leslie on 02-02-2023 Hemoglobin Auto test strip Ql (U) 3+ Negative [facility] Urine leukocyte esterase det ection by automated test stripOrdered By: Matthew Leslie on 02-02-2023 Leukocyte esterase Auto test strip Ql (U) 2+ Negative [facility] Urine pH measurement by auto mated test stripOrdered By: Matthew Leslie on 02-02-2023 pH (U) 6.0 [pH] Normal 5.0-9.0 [facility] Comment on above: Order Comment: Name Collection Type:: Clean-Voided Midstream Performed By: #### C UU, UHCG, ADDONUAPLUS, URDS #### [facility] [address] Urine protein measurement by automated test strip (mass/volume)Ordered By: Matthew Leslie on 02-02-2023 Protein (U) [Mass/Vol] 30 mg/dL High Negative Fi [facility] Comment on above: Order Comment: Name Collection Type:: Clean-Voided Midstream Performed By: #### C UU, UHCG, ADDONUAPLUS, URDS #### [facility] [address] Urobilinogen Auto test strip (U) [Mass/Vol]Ordered By: Matthew Leslie on 02-02-2023 Urobilinogen (U) [Mass/Vol] Normal mg/dL Normal [facility] Vitamin D 25 Hydroxy Totalon 02-02-2023 Vitamin D 25 Hydroxy Total 54.2 ng/mL Normal 30-100 [facility] Comment on above: Result Comment: MABLE MIN D STATUS 25(OH)VITAMIN D RANGE (ng/mL) Deficient <20 Insufficient 20 to <30 Sufficient 30 to 100 Reference: Nimisha Benson, Luisa MCCRACKEN, et al. Evaluation,treatment, and prevention of vitamin D deficiency; an Endocrine Society clinical practice guideline. JCEM. 2010; 96(7):1911-30. PERFORMED BY: [place] [address] PATHOLOGIST HOT END OPERATOR MOISES VELASCO M.D. Performed By: #### C UU, UHCG, ADDONUAPLUS, URDS #### [place] [id number] [facility] Vitamin D+Metabolites [Mass/ volume] in Serum or PlasmaOrdered By: Matthew Leslie on 02-02-2023 Vitamin D+Metabolites [Mass/Vol] 54.2 ng/mL 30-100 [facility] Comment on above: VITAMIN D STATUS [...] sed) None seen [HPF] None Se en [facility] AMNISUREon 09-16-2022 AMNISURE Positive Abnormal NEGATIVE [facility] Comment on above: Performed By: #### A MNI #### [facility] [address] [place] [address] [address] Adrianna Caldera CBC AUTO DIFFon 09-16-2022 BASO # 0.1 103/ul Normal 0.0-0.1 [facility] Comment on above: Performed By: #### C BC #### [facility] [address] [place] [address] Dr. Adrianna Caldera Basophils/100 WBC (Bld) 0.4 % Normal 0.2-2.0 [facility] Comment on above: Performed By: #### C BC #### [facility] [address] [place] [address] Dr. Adrianna Caldera EO # 0.0 103/ul Normal 0.0-0.7 [facility] Comment on above: Performed By: #### C BC #### [facility] [address] [place] [address] Dr. Adrianna Caldera Eosinophils/100 WBC (Bld) 0.1 % Critically low 0.9-7.0 [facility] Comment on above: Performed By: #### C BC #### [facility] [address] [place] [address] Dr. Adrianna Caldera Erythrocyte distribution width (RBC) [Ratio] 12.3 % Normal 11.0-15.0 [facility] Comment on above: Performed By: #### C BC #### [facility] [address] [place] [address] Dr. Adrianna Caldera Hematocrit (Bld) [Volume fraction] 38.3 % Normal 36.0-48.0 [facility] Comment on above: Performed By: #### C BC #### [facility] [address] [place] [address] Dr. Adrianna Caldera Hemoglobin (Bld) [Mass/Vol] 12.8 g/dL Normal 12.0-16.0 [facility] Comment on above: Performed By: #### C BC #### [facility] [address] [address] [address] Adrianna Caldera IG # 0.20 10e3/ul Critically high 0.00-0.03 [facility] Comment on above: Performed By: #### C BC #### [facility] [address] [address] [address] Adrianna Caldera IG % 1.0 % Critically high 0.0-0.5 [facility] Comment on above: Performed By: #### C BC #### [facility] [address] [address] [address] Adrianna Caldera LYMPH # 1.5 103/ul Normal 1.2-3.8 [facility] Comment on above: Performed By: #### C BC #### [facility] [address] [place] [address] Dr. Adrianna Caldera Lymphocytes/100 WBC (Bld) 7.7 % Critically low 20.5-60.0 [facility] Comment on above: Performed By: #### C BC #### [facility] [address] [place] [address] Dr. Adrianna Caldera MANUAL DIFF REQ NO Normal [facility] Comment on above: Performed By: #### C BC #### [facility] [address] [place] [address] Dr. Adrianna Caldera MCH (RBC) [Entitic mass] 28.9 pg Normal 26.7-34.0 [facility] Comment on above: Performed By: #### C BC #### [facility] [address] [place] [address] Dr. Adrianna Caldera MCHC (RBC) [Mass/Vol] 33.4 g/dL Normal 29.9-35.2 [facility] Comment on above: Performed By: #### C BC #### [facility] [address] [address] [address] Adrianna Caldera MCV (RBC) [Entitic vol] 86.5 fL Normal 81.0-99.0 [facility] Comment on above: Performed By: #### C BC #### [facility] [address] [place] [address] Dr. Adrianna Caldera MONO # 0.3 103/ul Normal 0.3-0.8 [facility] Comment on above: Performed By: #### C BC #### [facility] [address] [place] [address] Dr. Adrianna Caldera Monocytes/100 WBC (Bld) 1.7 % Normal 1.7-12.0 [facility] Comment on above: Performed By: #### C BC #### [facility] [address] [place] [address] Dr. Adrianna Caldera NEUT # 17.5 103/ul Critically high 1.4-6.5 [facility] Comment on above: Performed By: #### C BC #### [facility] [address] [place] [address] Dr. Adrianna Caldera Neutrophils/100 WBC (Bld) 89.1 % Critically high 43.0-75.0 [facility] Comment on above: Performed By: #### C BC #### [facility] [address] [place] [address] Dr. Adrianna Caldera Platelet mean volume (Bld) [Entitic vol] 10.7 fL Normal 9.5-13.5 [facility] Comment on above: Performed By: #### C BC #### [facility] [address] [place] [address] Dr. Adrianna Caldera PLT 356 103/ul Normal 150-450 [facility] Comment on above: Performed By: #### C BC #### [facility] [address] [place] [address] Dr. Adrianna Caldera RBC 4.43 106/ul Normal 4.20-5.40 [facility] Comment on above: Performed By: #### C BC #### [facility] [address] [place] [address] Dr. Adrianna Caldera WBC 19.6 103/ul Critically high 4.0-11.0 [facility] Comment on above: Performed By: #### C BC #### [facility] [address] [place] [address] Dr. Adrianna Caldera UA (CLEAN/CATCH) REWORK MACHINE OPERATOR/MICRO I F IND.on 09-16-2022 Bilirubin Ql (U) Negative Normal NEGATIVE [facility] Comment on above: Performed By: #### U ACSIND #### [facility] [address] [place] [address] Dr. Adrianna Caldera Clarity (U) CLEAR Normal CLEAR [facility] Comment on above: Performed By: #### U ACSIND #### [facility] [address] [place] [address] Dr. Adrianna Caldera Color (U) LT. YELLOW Normal YELLOW [facility] Comment on above: Performed By: #### U ACSIND #### [facility] [address] [place] [address] Dr. Adrianna Caldera Glucose Ql (U) Negative Normal NEGATIVE [facility] Comment on above: Performed By: #### U ACSIND #### [facility] [address] [place] [address] Dr. Adrianna Caldera Hemoglobin Ql (U) Negative Normal NEGATIVE [facility] Comment on above: Performed By: #### U ACSIND #### [facility] [address] [place] [address] Dr. Adrianna Caldera Ketones Ql (U) Negative Normal NEGATIVE [facility] Comment on above: Performed By: #### U ACSIND #### [facility] [address] [place] [address] Dr. Adrianna Caldera LEUKOCYTES Negative Normal NEGATIVE [facility] Comment on above: Performed By: #### U ACSIND #### [facility] [address] [place] [address] Dr. Adrianna Caldera Nitrite Ql (U) Negative Normal NEGATIVE [facility] Comment on above: Performed By: #### U ACSIND #### [facility] [address] [place] [address] Dr. Adrianna Caldera pH (U) 5.5 [pH] Normal 5-9 [facility] Comment on above: Performed By: #### U ACSIND #### [facility] [address] [place] [address] Dr. Adrianna Caldera SPEC GRAVITY 1.010 Normal 1.005-<=1.0 25 [facility] Comment on above: Performed By: #### U ACSIND #### [facility] [address] [place] [address] Dr. Adrianna Caldera UA PROTEIN Negative Normal NEGATIVE/ TRACE [facility] Comment on above: Performed By: #### U ACSIND #### [facility] [address] [place] [address] Dr. Adrianna Caldera UR MICRO IND NOT INDICATED Normal [facility] Comment on above: Performed By: #### U ACSIND #### [facility] [address] [place] [address] Dr. Adrianna Caldera Urobilinogen Qn (U) 0.2 {Micheal'U}/dL Normal 0.2 - 1. 0 [facility] Comment on above: Performed By: #### U ACSIND #### [facility] [address] [place] [address] Dr. Adrianna Caldera US PREG GROWTHon 09-16-2022 [...] KAROL SIDDIQUI Date: 2022-09-16 15:19 Normal [facility] UA (CLEAN/CATCH) REWORK MACHINE OPERATOR/MICRO I F IND.on 09-04-2022 Bilirubin Ql (U) Negative Normal NEGATIVE [facility] Comment on above: Performed By: #### U ACSIND ####[facility] [address] [place], [place] [address]Dr. Adrianna Caldera Clarity (U) CLEAR Normal CLEAR [facility] Comment on above: Performed By: #### U ACSIND ####[facility] [address] [place], [place] [address]Dr. Adrianna Caldera Color (U) LT. YELLOW Normal YELLOW [facility] Comment on above: Performed By: #### U ACSIND ####[facility] [address] [place], [place] [address]Dr. Adrianna Caldera Glucose Ql (U) Negative Normal NEGATIVE [facility] Comment on above: Performed By: #### U ACSIND ####[facility] [id number] [place], [place] [address]Dr. Jemimabenito Caldera Hemoglobin Ql (U) Negative Normal NEGATIVE [facility] Comment on above: Performed By: #### U ACSIND ####[facility] [address] [place], [place] [address]Dr. Jemimabenito Caldera Ketones Ql (U) Negative Normal NEGATIVE [facility] Comment on above: Performed By: #### U ACSIND ####[facility] [address] [place], [place] [address]Dr. Adrianna Caldera LEUKOCYTES Negative Normal NEGATIVE [facility] Comment on above: Performed By: #### U ACSIND ####[facility] [address] [place], [place] [address]Dr. Adrianna Caldera Nitrite Ql (U) Negative Normal NEGATIVE [facility] Comment on above: Performed By: #### U ACSIND ####[facility] [address] [place], [place] [address]Dr. Jemimabenito Caldera pH (U) 7.5 [pH] Normal 5-9 [facility] Comment on above: Performed By: #### U ACSIND ####[facility] [address] [place], [place] [address]Dr. Adrianna Caldera SPEC GRAVITY 1.010 Normal 1.005-<=1.0 25 [facility] Comment on above: Performed By: #### U ACSIND ####[facility] [address] [address]Dr. Adrianna Werner UA PROTEIN Negative Normal NEGATIVE/ TRACE [facility] Comment on above: Performed By: #### U ACSIND ####[facility] [address] [address]Dr. Adrianna Caldera UR MICRO IND NOT INDICATED Normal [facility] Comment on above: Performed By: #### U ACSIND ####[facility] [address] [address]Dr. Jemimabenito Caldera Urobilinogen Qn (U) 0.2 {Micheal'U}/dL Normal 0.2 - 1. 0 [facility] Comment on above: Performed By: #### U ACSIND ####[facility] [address] [address]Dr. Adrianna Caldera GTT 3 HR PREGon 08-30-2022 Glucose [Mass/Vol] 88 mg/dL Normal 74-106 [facility] Comment on above: Performed By: #### G TT3P ####[facility] [address] [place], [place] [address]Dr. Adrianna Caldera Glucose [Mass/Vol] 167 mg/dL Normal [facility] Comment on above: Performed By: #### G TT3P ####[facility] [address] [place], [place] [address]Dr. Adrianna Caldera Glucose [Mass/Vol] 136 mg/dL Normal [facility] Comment on above: Performed By: #### G TT3P ####[facility] [address] [place], [place] [address]Dr. Adrianna Caldera Glucose [Mass/Vol] 144 mg/dL Normal [facility] Comment on above: Performed By: #### G TT3P ####[facility] [address] [place], [place] [address]Dr. Adrianna Caldera US PREG PLACENTAon US PREG [...] KAROL SIDDIQUI Date: 2022-08-17 15:46 Normal [facility] UA (CLEAN/CATCH) REWORK MACHINE OPERATOR/MICRO I F IND.on 07-21-2022 Bilirubin Ql (U) Negative Normal NEGATIVE [facility] Comment on above: Performed By: #### U ACSIND ####[facility] [address] [place], [place] [address]Dr. Adrianna Caldera Clarity (U) CLEAR Normal CLEAR [facility] Comment on above: Performed By: #### U ACSIND ####[facility] [address] [place], [place] [address]Dr. Yilan Caldera Color (U) LT. YELLOW Normal YELLOW [facility] Comment on above: Performed By: #### U ACSIND ####[facility] [address] [place], [place] [address]Dr. Yibenito Caldera Glucose Ql (U) Negative Normal NEGATIVE [facility] Comment on above: Performed By: #### U ACSIND ####[facility] X[address] [place], [place] [address]Dr. Yilan Caldera Hemoglobin Ql (U) Negative Normal NEGATIVE [facility] Comment on above: Performed By: #### U ACSIND ####[facility] [address] [place], [place] [address]Dr. Yilan Caldera Ketones Ql (U) Negative Normal NEGATIVE [facility] Comment on above: Performed By: #### U ACSIND ####[facility] [address] [place], [place] [address]Dr. Yilan Caldera LEUKOCYTES Negative Normal NEGATIVE [facility] Comment on above: Performed By: #### U ACSIND ####[facility] [address] [place], [place] [address]Dr. Yilan Caldera Nitrite Ql (U) Negative Normal NEGATIVE [facility] Comment on above: Performed By: #### U ACSIND ####[facility] [address] [id number]. Adrianna Caldera pH (U) 7.0 [pH] Normal 5-9 [facility] Comment on above: Performed By: #### U ACSIND ####[facility] [address] [id number]. Adrianna Caldera SPEC GRAVITY 1.010 Normal 1.005-<=1.0 25 [facility] Comment on above: Performed By: #### U ACSIND ####[facility] [address] [address]Dr. Adrianna Caldera UA PROTEIN Negative Normal NEGATIVE/ TRACE [facility] Comment on above: Performed By: #### U ACSIND ####[facility] [address] [address]Dr. Adrianna Caldera UR MICRO IND NOT INDICATED Normal [facility] Comment on above: Performed By: #### U ACSIND ####[facility] [address] [address]Dr. Adrianna Caldera Urobilinogen Qn (U) 0.2 {Micheal'U}/dL Normal 0.2 - 1. 0 [facility] Comment on above: Performed By: #### U ACSIND ####[facility] [address] [address]Dr. Adrianna Caldera US PREG ANATOMY SINGLEon US [...] by: KAROL SIDDIQUI Date: 2022-07-21 16:41 Normal [facility] PAP ACOG PANEL 2: 23 to 31on 07-12-2022 . . Normal [facility] Comment on above: Performed By: #### 4 [id number] ####[facility] [address] [address]Dr. Adrianna Caldera Age Gdln ACOG Testing 23- Normal [facility] Comment on above: Performed By: #### 4 [id number] ####[facility] [address] [place], [place] [address]Dr. Adrianna Caldera DIAGNOSIS: Comment Normal [facility] Comment on above: Result Comment: NEGA TIVE FOR INTRAEPITHELIAL LESION OR MALIGNANCY. Performed By: #### 4 [id number] ####[facility] [address] [place], [place] [address]Dr. Adrianna Caldera Methodology: Comment Normal [facility] Comment on above: Result Comment: This liquid based ThinPrep(R) pap test was screened with the use of an image guided system. Performed By: #### 4 [id number] ####[facility] [address] [place], [place] [address]Dr. Adrianna Caldera Note: Comment Normal [facility] Comment on above: Result Comment: The Pap smear is a screening test designed to aid in the detection of premalignant and malignant conditions of the uterine cervix. It is not a diagnostic procedure and should not be used as the sole means of detecting cervical cancer. Both false-positive and false-negative reports do occur. . Performed By: #### 4 [id number] ####[facility] [address] [address]Dr. Adrianna Caldera Performed by: Comment Normal [facility] Comment on above: Result Comment: [place] Yin, Bounty Trapper (ASCP) Performed By: #### 4 [id number] ####[facility] [address] [address]Dr. Adrianna Caldera Reflex Criteria: Comment Normal [facility] Comment on above: Result Comment: The HPV DNA reflex criteria were not met with this specimen result therefore, no HPV testing was performed. . Performed By: #### 4 [id number] ####[facility] [address] [place], [place] [address]Dr. Adrianna Caldera Specimen adequacy: Comment Normal [facility] Comment on above: Result Comment: Sati sfactory for evaluation. No endocervical component is identified. Performed By: #### 4 [id number] ####[facility] [address] [address]Dr. Adrianna Caldera CHLAMYDIA/GONOCOCCUS ALEKSANDER (SW AB/URINE/PAPon 07-07-2022 Chlamydia trachomatis, ALEKSANDER Negative Normal Negative [facility] Comment on above: Performed By: #### C T/NGNA ####[facility] [address] [place], [place] [address]Dr. Adrianna Caldera Neisseria gonorrhoeae, ALEKSANDER Negative Normal Negative [facility] Comment on above: Performed By: #### C T/NGNA ####[facility] [address] [address]Dr. Adrianna Caldera VAGINITIS/VAGINOSIS DNA PROB Scott 07-07-2022 Sherley species Negative Normal Negative [facility] Comment on above: Performed By: #### U ACSIND #### [facility] [address] [address] [address] Adrianna Caldera Gardnerella vaginalis Negative Normal Negative [facility] Comment on above: Performed By: #### U ACSIND #### [facility] [address] [address] [address] Adrianna Caldera Trichomonas vaginalis Negative Normal Negative [facility] Comment on above: Performed By: #### U ACSIND #### [facility] [id number] Adrianna Caldera ABO/RHon 06-30-2022 ABO/Rh Negative [facility] CBC with Auto Differentialon 06-30-2022 Absolute Eos # 0.06 [facility] Absolute Immature Granulocyte 0.07 [facility] Absolute Lymph # 2.91 [facility] Absolute [place] # 0.66 [facility] Basophils (Bld) [#/Vol] 0.04 10*3/uL [facility] Basophils/100 WBC (Bld) 0 % 0 - 2 % [facility] Eosinophils/100 WBC (Bld) 1 % 1 - 4 % [facility] Hematocrit (Bld) [Volume fraction] 35.2 % Low 36.3 - 47.1 % [facility] Hemoglobin (Bld) [Mass/Vol] 11.9 g/dL 11.9 - 15.1 g/dL [facility] Immature granulocytes/100 WBC (Bld) 1 % High 0 [facility] Interpretation and review of laboratory results Abnormal [facility] Lymphocytes/100 WBC (Bld) 24 % 24 - 43 % [facility] MCH (RBC) [Entitic mass] 30.7 pg 25.2 - 33.5 pg [facility] MCHC (RBC) [Mass/Vol] 33.8 g/dL 28.4 - 34.8 g/dL [facility] MCV (RBC) [Entitic vol] 91.0 fL 82.6 - 102.9 fL [facility] Monocytes/100 WBC (Bld) 5 % 3 - 12 % [facility] NRBC Automated 0.0 0.0 per 100 WBC [facility] Platelet distribution width (Bld) [Ratio] 12.2 % 11.8 - 14.4 % [facility] Platelet mean volume (Bld) [Entitic vol] 10.5 fL 8.1 - 13.5 fL [facility] Platelets (Bld) [#/Vol] 301 10*3/uL [facility] RBC (Bld) [#/Vol] 3.87 10*6/uL Low 3.95 - 5.1 1 m/uL [facility] Segmented neutrophils/100 WBC (Bld) 69 % High 36 - 65 % [facility] Segs Absolute 8.40 High [facility] WBC (Bld) [#/Vol] 12.1 10*3/uL High [facility] CMPon 06-30-2022 Albumin [Mass/Vol] 3.6 g/dL 3.5 - 5.2 g/dL [facility] Albumin/Globulin [Mass ratio] 1.1 {ratio} 1.0 - 2.5 [facility] ALP [Catalytic activity/Vol] 74 U/L 35 - 104 U/L [facility] ALT [Catalytic activity/Vol] 9 U/L 5 - 33 U/L [facility] Anion gap [Moles/Vol] 13 mmol/L 9 - 17 mmol/L [facility] AST [Catalytic activity/Vol] 18 U/L NINF - 32 U/L [facility] Bilirubin [Mass/Vol] mg/dL Low 0.3 - 1 .2 mg/dL [facility] Calcium [Mass/Vol] 9.5 mg/dL 8.6 - 10. 4 mg/dL [facility] Chloride [Moles/Vol] 101 mmol/L 98 - 10 7 mmol/L [facility] CO2 [Moles/Vol] 21 mmol/L 20 - 31 mmol/L [facility] Creatinine [Mass/Vol] 0.55 mg/dL 0.50 - 0.90 mg/dL [facility] GFR/1.73 sq M.predicted MDRD (S/P/Bld) [Vol rate/Area] - PINF [facility] Comment on above: These results are [...] [Mass/Vol] 84 mg/dL 70 - 99 mg/dL [facility] Interpretation and review of laboratory results Abnormal [facility] Potassium [Moles/Vol] 3.8 mmol/L 3.7 - 5.3 mmol/L [facility] Protein [Mass/Vol] 6.9 g/dL 6.4 - 8.3 g/dL [facility] Sodium [Moles/Vol] 135 mmol/L 135 - 144 mmol/L [facility] Urea nitrogen [Mass/Vol] 8 mg/dL 6 - 20 mg/dL [facility] Urea nitrogen/Creatinine (Bld) [Mass ratio] 15 9 - 20 [facility] Lipaseon 06-30-2022 Lipase [Catalytic activity/Vol] 30 U/L 13 - 60 U/L [facility] Microscopic Urinalysison Bacteria, UA 2+ Abnormal None [facility] Epithelial Cells UA 0 TO 2 [facility] Interpretation and review of laboratory results Abnormal [facility] Mucus, UA 3+ Abnormal None [facility] RBC clumps Auto (Urine sed) [#/Area] 0 TO 2 [facility] WBC, UA 0 TO 2 [facility] Protime-INRon 06-30-2022 INR Coag (PPP) [Relative time] 1.0 {INR} [facility] Comment on above: Therapeutic Range: Moderate Anticoagulant Intensity: INR = 2.0-3.0 High Anticoagulant Intensity: INR = 2.5-3.5 PT Coag (PPP) [Time] 13.3 s [facility] Urinalysis with Reflex to Cu ltureon 06-30-2022 Bilirubin Urine Negative NEGATIVE [facility] Color, UA Yellow Yellow [facility] Glucose Auto test strip (U) [Mass/Vol] Negative NEGATIVE [facility] Interpretation and review of laboratory results Abnormal [facility] Ketones (U) [Mass/Vol] Negative NEGATIVE [facility] Leukocyte esterase Auto test strip Ql (U) Negative NEGATIVE [facility] Nitrite Auto test strip Ql (U) Negative NEGATIVE [facility] Protein (U) [Mass/Vol] 6.0 mg/dL 5.0 - 9.0 [facility] Protein (U) [Mass/Vol] Negative NEGATIVE [facility] Specific [place], UA 1.025 High 1.010 - 1.020 [facility] Turbidity UA Clear Clear [facility] Urine Hgb Negative NEGATIVE [facility] Urobilinogen, Urine Normal Normal [facility] S [facility] No Panel Informationon 06-17 Body mass index (BMI) [Percentile] Per age and sex 0.1 {percentile} Invalid Interpretation Code [employer] [id number] Per age and sex 0.1 {percentile} Invalid Interpretation Code [employer] HEP B SURFACE ANTIGEN SCREEN on 06-08-2022 HBsAg Screen Negative Normal Negative [facility] Comment on above: Performed By: #### U ACSIND #### [facility] [address] [address] [address] Adrianna Caldera HEPATITIS C VIRUS AB W/ REFL EX QUANTon 06-08-2022 HCV AB <0.1 Normal 0.0-0.9 [facility] Comment on above: Performed By: #### U ACSIND #### [facility] [address] [address] [address] Adrianna Caldera Interpretation: Comment Normal [facility] Comment on above: Result Comment: Nega tive Not infected with HCV, unless recent infection is suspected or other evidence exists to indicate HCV infection. Performed By: #### U ACSIND #### [facility] [address] [address] [address] Adrianna Caldera HIV 1 AND 2 WITH REFLEXon HIV Screen 4th Generation wRfx Non-Reactive Normal Non Reactive [facility] Comment on above: Result Comment: HIV Negative HIV-1/HIV-2 antibodies and HIV-1 p24 antigen were NOT detected. There is no laboratory evidence of HIV infection. Performed By: #### U ACSIND #### [facility] [address] [place] [id number] Dr. Adrianna Caldera RPR QUANTon 06-08-2022 Rapid Plasma Reagin, Quant Non-Reactive Normal NonRea<1:1 [facility] Comment on above: Result Comment: Plea se Note: This test does not meet current guidelines for screening and diagnosis of syphilis. This test is intended for following treatment response in patients being treated for syphilis infection. To screen for syphilis infection, a reflex cascade that includes both RPR and a treponema-specific assay should be utilized, such as Treponema pallidum (Syphilis) Screening [place] (459244) or Rapid Plasma Reagin (RPR) Test With Reflex to Quantitative RPR and Confirmatory Treponema pallidum Antibodies ([id number]). Performed By: #### U ACSIND #### [facility] [address] [place] [address] Dr. Adrianna Caldera RUBELLA AB IGGon 06-08-2022 Rubella Antibodies, IgG 4.69 index Normal Immu ne >0.99 [facility] Comment on above: Result Comment: Non- immune <0.90 Equivocal 0.90 - 0.99 Immune >0.99 Performed By: #### R UBIGG ####[facility] [address] [place] [address]Dr. Adrianna Caldera CBC AUTO DIFFon 06-05-2022 BASO # 0.0 103/ul Normal 0.0-0.1 [facility] Comment on above: Performed By: #### C BC #### [facility] [address] [place] [address] Dr. Adrianna Caldera Basophils/100 WBC (Bld) 0.3 % Normal 0.2-2.0 [facility] Comment on above: Performed By: #### C BC #### [facility] [address] [place] [address] Dr. Adrianna Caldera EO # 0.1 103/ul Normal 0.0-0.7 [facility] Comment on above: Performed By: #### C BC #### [facility] [address] [place] [address] Dr. Adrianna Caldera Eosinophils/100 WBC (Bld) 0.6 % Critically low 0.9-7.0 [facility] Comment on above: Performed By: #### C BC #### [facility] [address] [place] [address] Dr. Adrianna Caldera Erythrocyte distribution width (RBC) [Ratio] 11.7 % Normal 11.0-15.0 [facility] Comment on above: Performed By: #### C BC #### [facility] [address] [place] [address] Dr. Adrianna Caldera Hematocrit (Bld) [Volume fraction] 33.8 % Critically low 36.0-48.0 [facility] Comment on above: Performed By: #### C BC #### [facility] [address] [place] [address] Dr. Adrianna Caldera Hemoglobin (Bld) [Mass/Vol] 12.6 g/dL Normal 12.0-16.0 [facility] Comment on above: Performed By: #### C BC #### [facility] [address] [place] [address] Dr. Adrianna Caldera IG # 0.05 10e3/ul Critically high 0.00-0.03 [facility] Comment on above: Performed By: #### C BC #### [facility] [address] [place] [address] Dr. Adrianna Caldera IG % 0.4 % Normal 0.0-0.5 [facility] Comment on above: Performed By: #### C BC #### [facility] [address] [place] [address] Dr. Adrianna Caldera LYMPH # 2.4 103/ul Normal 1.2-3.8 [facility] Comment on above: Performed By: #### C BC #### [facility] [address] [place] [address] Dr. Adrianna Caldera Lymphocytes/100 WBC (Bld) 21.1 % Normal 20.5-60.0 [facility] Comment on above: Performed By: #### C BC #### [facility] [address] [place] [address] Dr. Adrianna Caldera MANUAL DIFF REQ NO Normal [facility] Comment on above: Performed By: #### C BC #### [facility] [address] [place] [address] Dr. Adrianna Caldera MCH (RBC) [Entitic mass] 30.3 pg Normal 26.7-34.0 [facility] Comment on above: Performed By: #### C BC #### [facility] [address] [place] [address] Dr. Adrianna Caldera MCHC (RBC) [Mass/Vol] 37.3 g/dL Critically high 29.9-35.2 [facility] Comment on above: Performed By: #### C BC #### [facility] [address] [place] [address] Dr. Adrianna Caldera MCV (RBC) [Entitic vol] 81.3 fL Normal 81.0-99.0 [facility] Comment on above: Performed By: #### C BC #### [facility] [address] [place] [address] Dr. Adrianna Caldera MONO # 0.6 103/ul Normal 0.3-0.8 [facility] Comment on above: Performed By: #### C BC #### [facility] [address] [place] [address] Dr. Adrianna Caldera Monocytes/100 WBC (Bld) 5.4 % Normal 1.7-12.0 [facility] Comment on above: Performed By: #### C BC #### [facility] [address] [place] [address] Dr. Adrianna Caldera NEUT # 8.3 103/ul Critically high 1.4-6.5 [facility] Comment on above: Performed By: #### C BC #### [facility] [address] [place] [address] Dr. Adrianna Caldera Neutrophils/100 WBC (Bld) 72.2 % Normal 43.0-75.0 [facility] Comment on above: Performed By: #### C BC #### [facility] [address] [address] [address] Adrianna Caldera Platelet mean volume (Bld) [Entitic vol] 10.6 fL Normal 9.5-13.5 [facility] Comment on above: Performed By: #### C BC #### [facility] [address] [address] [address] Adrianna Caldera PLT 253 103/ul Normal 150-450 [facility] Comment on above: Performed By: #### C BC #### [facility] [address] [address] [address] Adrianna Caldera RBC 4.16 106/ul Critically low 4.20-5.40 [facility] Comment on above: Performed By: #### C BC #### [facility] [address] [address] [address] Adrianna Caldera WBC 11.6 103/ul Critically high 4.0-11.0 [facility] Comment on above: Performed By: #### C BC #### [facility] [address] [address] [address] Adrianna Caldera CULTURE URINEon 06-05-2022 CULTURE URINE Culture Observations: LIGHT GROWTH OF MIXED GENITAL JIGAR. NO POTENTIAL PATHOGENS SEEN. Normal [facility] Comment on above: Performed By: #### U RCX ####[facility] [address] [address]Dr. Adrianna Caldera GLYCOHEMOGLOBIN A1Con 2022 ADA RECOMMENDATION SEE BELOW Normal [facility] Comment on above: Result Comment: ADA RECOMMENDED LIMIT 4.0 - 6.0 ADA THERAPEUTIC TARGET < 7.0 ACTION SUGGESTED > 7.0 Performed By: #### P REGQNT #### [facility] [address] [address] [address] Adrianna Caldera Glucose [Mass/Vol] 105 mg/dL Normal [facility] Comment on above: Performed By: #### P REGQNT #### [facility] [address] [address] [address] Adrianna Caldera HbA1c (Bld) [Mass fraction] 5.3 % Normal 4.5-6.2 [facility] Comment on above: Performed By: #### P REGQNT #### [facility] [address] [place], [place] [address] Dr. Adrianna Caldera TYPE AND SCREENon 06-05-2022 TYPE AND SCREEN Negative Normal [facility] Comment on above: Performed By: #### T NS ####[facility] [address] [place], [place] [address]Dr. Adrianna Caldera US PREG <14 WKSon 05-27-2022 [...] GOVIND JOHNSTON Date: 2022-05-26 22:31 Normal [facility] CBC AUTO DIFFon 05-26-2022 BASO # 0.1 103/ul Normal 0.0-0.1 [facility] Comment on above: Performed By: #### U ACSIND #### [facility] [address] [address] [address] Adrianna Caldera Basophils/100 WBC (Bld) 0.5 % Normal 0.2-2.0 [facility] Comment on above: Performed By: #### U ACSIND #### [facility] [address] [address] [address] Adrianna Caldera EO # 0.1 103/ul Normal 0.0-0.7 [facility] Comment on above: Performed By: #### U ACSIND #### [facility] [address] [address] [address] Adrianna Caldera Eosinophils/100 WBC (Bld) 0.5 % Critically low 0.9-7.0 [facility] Comment on above: Performed By: #### U ACSIND #### [facility] [address] [place] [address] Dr. Adrianna Caldera Erythrocyte distribution width (RBC) [Ratio] 11.9 % Normal 11.0-15.0 [facility] Comment on above: Performed By: #### U ACSIND #### [facility] [address] [place] [address] Dr. Adrianna Caldera Hematocrit (Bld) [Volume fraction] 37.5 % Normal 36.0-48.0 [facility] Comment on above: Performed By: #### U ACSIND #### [facility] [address] [place] [address] Dr. Adrianna Caldera Hemoglobin (Bld) [Mass/Vol] 12.8 g/dL Normal 12.0-16.0 [facility] Comment on above: Performed By: #### U ACSIND #### [facility] [address] [place] [address] Dr. Adrianna Caldera IG # 0.04 10e3/ul Critically high 0.00-0.03 [facility] Comment on above: Performed By: #### U ACSIND #### [facility] [address] [place] [address] Dr. Adrianna Caldera IG % 0.4 % Normal 0.0-0.5 [facility] Comment on above: Performed By: #### U ACSIND #### [facility] [address] [address] [address] Adrianna Caldera LYMPH # 3.0 103/ul Normal 1.2-3.8 [facility] Comment on above: Performed By: #### U ACSIND #### [facility] [address] [address] [address] Adrianna Caldera Lymphocytes/100 WBC (Bld) 27.0 % Normal 20.5-60.0 [facility] Comment on above: Performed By: #### U ACSIND #### [facility] [address] [place] [address] Dr. Adrianna Caldera MANUAL DIFF REQ NO Normal [facility] Comment on above: Performed By: #### U ACSIND #### [facility] [address] [place] [address] Dr. Adrianna Caldera MCH (RBC) [Entitic mass] 29.8 pg Normal 26.7-34.0 [facility] Comment on above: Performed By: #### U ACSIND #### [facility] [address] [place] [address] Dr. Adrianna Caldera MCHC (RBC) [Mass/Vol] 34.1 g/dL Normal 29.9-35.2 [facility] Comment on above: Performed By: #### U ACSIND #### [facility] [address] [place] [address] Dr. Adrianna Caldera MCV (RBC) [Entitic vol] 87.4 fL Normal 81.0-99.0 [facility] Comment on above: Performed By: #### U ACSIND #### [facility] [address] [address] [address] Adrianna Caldera MONO # 0.7 103/ul Normal 0.3-0.8 [facility] Comment on above: Performed By: #### U ACSIND #### [facility] [address] [address] [address] Adrianna Caldera Monocytes/100 WBC (Bld) 6.3 % Normal 1.7-12.0 [facility] Comment on above: Performed By: #### U ACSIND #### [facility] [address] [address] [address] Adrianna Caldera NEUT # 7.2 103/ul Critically high 1.4-6.5 [facility] Comment on above: Performed By: #### U ACSIND #### [facility] [address] [address] [address] Adrianna Caldera Neutrophils/100 WBC (Bld) 65.3 % Normal 43.0-75.0 [facility] Comment on above: Performed By: #### U ACSIND #### [facility] [address] [place] [address] Dr. Adrianna Caldera Platelet mean volume (Bld) [Entitic vol] 10.3 fL Normal 9.5-13.5 [facility] Comment on above: Performed By: #### U ACSIND #### [facility] [address] [place] [address] Dr. Adrianna Caldera PLT 316 103/ul Normal 150-450 [facility] Comment on above: Performed By: #### U ACSIND #### [facility] [address] [place] [address] Dr. Adrianna Caldera RBC 4.29 106/ul Normal 4.20-5.40 [facility] Comment on above: Performed By: #### U ACSIND #### [facility] [address] [place] [address] Dr. Adrianna Caldera WBC 11.0 103/ul Normal 4.0-11.0 [facility] Comment on above: Performed By: #### U ACSIND #### [facility] [address] [place] [address] ABD/PELV W CONon [...] ISIDRO AVILA Date: 2022-05-26 19:39 Normal [facility] Covid-19 PCR (CVDTB)on 04-30 SARS-CoV-2 (COVID-19) RNA ALEKSANDER+probe Ql (Unsp spec) Not detected Normal NOT DETECTED [facility] Comment on above: Result Comment: When [...] for this test is supported by the [place] of [employer] and Human Service's declaration that [...] used). Performed By: #### U ACSIND #### [facility] [address] [place] [address] Dr. Adrianna Caldera ER URINE PROFILEon 2 Bilirubin Ql (U) Negative Normal NEGATIVE [facility] Comment on above: Performed By: #### P REGQNT #### [facility] [address] [place] [address] Dr. Adrianna Caldera Clarity (U) CLEAR Normal CLEAR [facility] Comment on above: Performed By: #### P REGQNT #### [facility] [address] [address] [address] Adrianna Caldera Color (U) YELLOW Normal YELLOW [facility] Comment on above: Performed By: #### P REGQNT #### [facility] [address] [address] [address] Adrianna Caldera ERUDEBBI A micrscopic examination will be performed if indicated. Normal [facility] Comment on above: Performed By: #### P REGQNT #### [facility] [address] [place] [address] Dr. Adrianna Caldera Glucose Ql (U) Negative Normal NEGATIVE [facility] Comment on above: Performed By: #### P REGQNT #### [facility] [address] [address] [address] Adrianna Caldera Hemoglobin Ql (U) Negative Normal NEGATIVE [facility] Comment on above: Performed By: #### P REGQNT #### [facility] [address] [place] [address] Dr. Adrianna Caldera Ketones Ql (U) 15 mg/dl Abnormal NEGATIVE [facility] Comment on above: Performed By: #### P REGQNT #### [facility] [address] [place] [address] Dr. Adrianna Caldera LEUKOCYTES Negative Normal NEGATIVE [facility] Comment on above: Performed By: #### P REGQNT #### [facility] [address] [place] [address] Dr. Adrianna Caldera Nitrite Ql (U) Negative Normal NEGATIVE [facility] Comment on above: Performed By: #### P REGQNT #### [facility] [address] [place] [address] Dr. Adrianna Caldera pH (U) 7.5 [pH] Normal 5-9 [facility] Comment on above: Performed By: #### P REGQNT #### [facility] [address] [place] [address] Dr. Adrianna Caldera SPEC GRAVITY 1.020 Normal 1.005-<=1.0 25 [facility] Comment on above: Performed By: #### P REGQNT #### [facility] [address] [place] [address] Dr. Adrianna Caldera UA PROTEIN Negative Normal NEGATIVE/ TRACE [facility] Comment on above: Performed By: #### P REGQNT #### [facility] [address] [place] [address] Dr. Adrianna Caldera UR MICRO IND NOT INDICATED Normal [facility] Comment on above: Performed By: #### P REGQNT #### [facility] [address] [place] [address] Dr. Adrianna Caldera Urobilinogen Qn (U) 0.2 {Micheal'U}/dL Normal 0.2 - 1. 0 [facility] Comment on above: Performed By: #### P REGQNT #### [facility] [address] [place] [address] Dr. Adrianna Caldera LIPASEon 05-26-2022 Lipase [Catalytic activity/Vol] 116.0 U/L Normal 73.0-393.0 [facility] Comment on above: Performed By: #### L IPA, CMP #### [facility] [address] [place] [address] Dr. Adrianna Caldera PROF 14(COMP METB)on 022 Albumin [Mass/Vol] 3.6 g/dL Normal 3.4-5.0 [facility] Comment on above: Performed By: #### L IPA, CMP #### [facility] [address] [place] [address] Dr. Adrianna Caldera Albumin/Globulin [Mass ratio] 0.9 {ratio} Normal [facility] Comment on above: Performed By: #### L IPA, CMP #### [facility] [address] [place] [address] Dr. Adrianna Caldera ALP [Catalytic activity/Vol] 57 U/L Normal 46-116 [facility] Comment on above: Performed By: #### L IPA, CMP #### [facility] [address] [address] [address] Adrianna Caldera ALT [Catalytic activity/Vol] 13 U/L Critically low 14-59 [facility] Comment on above: Performed By: #### L IPA, CMP #### [facility] [address] [address] [address] Adrianna Caldera Anion gap [Moles/Vol] 10.6 mmol/L Normal [facility] Comment on above: Performed By: #### L IPA, CMP #### [facility] [address] [place] [address] Dr. Adrianna Caldera AST [Catalytic activity/Vol] 12 U/L Critically low 15-37 [facility] Comment on above: Performed By: #### L IPA, CMP #### [facility] [address] [place] [address] Dr. Adrianna Caldera Bilirubin [Mass/Vol] 0.2 mg/dL Normal 0.2-1.0 [facility] Comment on above: Performed By: #### L IPA, CMP #### [facility] [address] [place] [address] Dr. Adrianna Caldera Calcium [Mass/Vol] 8.9 mg/dL Normal 8.5-10.1 [facility] Comment on above: Performed By: #### L IPA, CMP #### [facility] [address] [place] [address] Dr. Adrianna Caldera Chloride [Moles/Vol] 102 mmol/L Normal 98-107 [facility] Comment on above: Performed By: #### L IPA, CMP #### [facility] [address] [place] [address] Dr. Adrianna Caldera CO2 [Moles/Vol] 26.0 mmol/L Normal 21.0-32.0 [facility] Comment on above: Performed By: #### L IPA, CMP #### [facility] [address] [place] [address] Dr. Adrianna Caldera Creatinine [Mass/Vol] 0.61 mg/dL Normal 0.55-1.02 [facility] Comment on above: Performed By: #### L IPA, CMP #### [facility] [address] [address] [address] Adrianna Caldera EGFR-AF NAURUAN >60 Normal >=60 [facility] Comment on above: Performed By: #### L IPA, CMP #### [facility] [address] [address] [address] Adrianna Caldera EGFR-NON AF NAURUAN >60 Normal >=60 [facility] Comment on above: Performed By: #### L IPA, CMP #### [facility] [address] [address] [address] Adrianna Caldera Globulin (S) [Mass/Vol] 3.8 g/dL Normal [facility] Comment on above: Performed By: #### L IPA, CMP #### [facility] [address] [place] [address] Dr. Adrianna Caldera Glucose [Mass/Vol] 82 mg/dL Normal 74-106 [facility] Comment on above: Performed By: #### L IPA, CMP #### [facility] [address] [place] [address] Dr. Adrianna Caldera Potassium [Moles/Vol] 3.6 mmol/L Normal 3.5-5.1 [facility] Comment on above: Performed By: #### L IPA, CMP #### [facility] [address] [address] [address] Adrianna Caldera Protein [Mass/Vol] 7.4 g/dL Normal 6.4-8.2 [facility] Comment on above: Performed By: #### L IPA, CMP #### [facility] [address] [address] [address] Adrianna Caldera Sodium [Moles/Vol] 135 mmol/L Critically low 136-145 [facility] Comment on above: Performed By: #### L IPA, CMP #### [facility] [address] [address] [address] Adrianna Caldera Urea nitrogen [Mass/Vol] 9.0 mg/dL Normal 7.0-18.0 [facility] Comment on above: Performed By: #### L IPA, CMP #### [facility] [address] [place] [address] Dr. Adrianna Caldera Urea nitrogen/Creatinine [Mass ratio] 14.8 mg/mg Normal [facility] Comment on above: Performed By: #### L IPA, CMP #### [facility] [id number] Adrianna Caldera No Panel Informationon 05-17 Body mass index (BMI) [Percentile] Per age and sex 0.1 {percentile} Invalid Interpretation Code [employer] [id number] Per age and sex 0.1 {percentile} Invalid Interpretation Code [employer] US PREG TVon 05-01-2022 US PREG TV [...] by: KAROL SIDDIQUI Date: 2022-04-30 22:06 Normal [facility] US PREG TVon 04-08-2022 US PREG [...] KAROL SIDDIQUI Date: 2022-04-08 17:08 Normal [facility] US PELVIS TRANSVAGon 022 US [...] CINDY NOGUEIRA Date: 2022-03-22 22:47 Normal [facility] CBC AUTO DIFFon 03-22-2022 BASO # 0.1 103/ul Normal 0.0-0.1 [facility] Comment on above: Performed By: #### U ACSIND #### [facility] [address] [address] [address] Adrianna Caldera Basophils/100 WBC (Bld) 0.5 % Normal 0.2-2.0 [facility] Comment on above: Performed By: #### U ACSIND #### [facility] [address] [address] [address] Adrianna Caldera EO # 0.1 103/ul Normal 0.0-0.7 [facility] Comment on above: Performed By: #### U ACSIND #### [facility] [address] [address] [address] Adrianna Caldera Eosinophils/100 WBC (Bld) 0.6 % Critically low 0.9-7.0 [facility] Comment on above: Performed By: #### U ACSIND #### [facility] [address] [address] [address] Adrianna Caldera Erythrocyte distribution width (RBC) [Ratio] 12.6 % Normal 11.0-15.0 [facility] Comment on above: Performed By: #### U ACSIND #### [facility] [address] [address] [address] Adrianna Caldera Hematocrit (Bld) [Volume fraction] 40.0 % Normal 36.0-48.0 [facility] Comment on above: Performed By: #### U ACSIND #### [facility] [address] [place] [address] Dr. Adrianna Caldera Hemoglobin (Bld) [Mass/Vol] 13.6 g/dL Normal 12.0-16.0 [facility] Comment on above: Performed By: #### U ACSIND #### [facility] [address] [place] [address] Dr. Adrianna Caldera IG # 0.03 10e3/ul Normal 0.00-0.03 [facility] Comment on above: Performed By: #### U ACSIND #### [facility] [address] [place] [address] Dr. Adrianna Caldera IG % 0.3 % Normal 0.0-0.5 [facility] Comment on above: Performed By: #### U ACSIND #### [facility] [address] [place] [address] Dr. Adrianna Caldera LYMPH # 4.4 103/ul Critically high 1.2-3.8 [facility] Comment on above: Performed By: #### U ACSIND #### [facility] [address] [place] [address] Dr. Adrianna Caldera Lymphocytes/100 WBC (Bld) 38.4 % Normal 20.5-60.0 [facility] Comment on above: Performed By: #### U ACSIND #### [facility] [address] [place] [address] Dr. Adrianna Caldera MANUAL DIFF REQ NO Normal [facility] Comment on above: Performed By: #### U ACSIND #### [facility] [address] [address] [address] Adrianna Caldera MCH (RBC) [Entitic mass] 30.2 pg Normal 26.7-34.0 [facility] Comment on above: Performed By: #### U ACSIND #### [facility] [address] [place] [address] Dr. Adrianna Caldera MCHC (RBC) [Mass/Vol] 34.0 g/dL Normal 29.9-35.2 [facility] Comment on above: Performed By: #### U ACSIND #### [facility] [address] [place] [address] Dr. Adrianna Caldera MCV (RBC) [Entitic vol] 88.9 fL Normal 81.0-99.0 [facility] Comment on above: Performed By: #### U ACSIND #### [facility] [address] [place] [address] Dr. Adrianna Caldera MONO # 0.7 103/ul Normal 0.3-0.8 [facility] Comment on above: Performed By: #### U ACSIND #### [facility] [address] [place] [address] Dr. Adrianna Caldera Monocytes/100 WBC (Bld) 6.2 % Normal 1.7-12.0 [facility] Comment on above: Performed By: #### U ACSIND #### [facility] [address] [place] [address] Dr. Adrianna Caldera NEUT # 6.1 103/ul Normal 1.4-6.5 [facility] Comment on above: Performed By: #### U ACSIND #### [facility] [address] [place] [address] Dr. Adrianna Caldera Neutrophils/100 WBC (Bld) 54.0 % Normal 43.0-75.0 [facility] Comment on above: Performed By: #### U ACSIND #### [facility] [address] [place] [address] Dr. Adrianna Caldera Platelet mean volume (Bld) [Entitic vol] 10.9 fL Normal 9.5-13.5 [facility] Comment on above: Performed By: #### U ACSIND #### [facility] [address] [address] [address] Adrianna Caldera PLT 277 103/ul Normal 150-450 [facility] Comment on above: Performed By: #### U ACSIND #### [facility] [address] [address] [address] Adrianna Caldera RBC 4.50 106/ul Normal 4.20-5.40 [facility] Comment on above: Performed By: #### U ACSIND #### [facility] [address] [address] [address] Adrianna Caldera WBC 11.3 103/ul Critically high 4.0-11.0 [facility] Comment on above: Performed By: #### U ACSIND #### [facility] [address] [address] [address] Adrianna Caldera ER URINE PROFILEon 2 Bilirubin Ql (U) Negative Normal NEGATIVE [facility] Comment on above: Performed By: #### P REGU, ERUR ####[facility] [address] [address]Dr. Adrianna Caldera Clarity (U) CLEAR Normal CLEAR [facility] Comment on above: Performed By: #### P REGU, ERUR ####[facility] [address] [id number]. Adrianna Caldera Color (U) LT. YELLOW Normal YELLOW [facility] Comment on above: Performed By: #### P REGU, ERUR ####[facility] [address] [id number] MORALESD A micrscopic examination will be performed if indicated. Normal [facility] Comment on above: Performed By: #### P REGU, ERUR ####[facility] [address] [address]DrAung Caldera Glucose Ql (U) Negative Normal NEGATIVE [facility] [place] [facility] Comment on above: Performed By: #### P REGU, ERUR ####[facility] [address] [place], [place] [address]Dr. Adrianna Caldera Hemoglobin Ql (U) Negative Normal NEGATIVE [facility] Comment on above: Performed By: #### P REGU, ERUR ####[facility] [address] [place], [place] [address]Dr. Jemimabenito Caldera Ketones Ql (U) Negative Normal NEGATIVE [facility] [place] [facility] Comment on above: Performed By: #### P REGU, ERUR ####[facility] Tg[address]xybyxq[address] [place], [place] [address]Dr. Jemimabenito Werner LEUKOCYTES Negative Normal NEGATIVE [facility] Comment on above: Performed By: #### P REGU, ERUR ####[facility] [address] [place], [place] [address]Dr. Jemimabenito Caldera Nitrite Ql (U) Negative Normal NEGATIVE [facility] [place] [facility] Comment on above: Performed By: #### P REGU, ERUR ####[facility] X[address]qu[address] [place], [place] [address]Dr. Adrianna Caldera pH (U) 6.0 [pH] Normal 5-9 [facility] Comment on above: Performed By: #### P REGU, ERUR ####[facility] [address] [place], [place] [address]Dr. Adrianna Caldera SPEC GRAVITY <=1.005 Abnormal 1.005-<=1.0 25 [facility] Comment on above: Performed By: #### P REGU, ERUR ####[facility] [address] [place], [place] [address]Dr. Adrianna Caldera UA PROTEIN Negative Normal NEGATIVE/ TRACE [facility] Comment on above: Performed By: #### P REGU, ERUR ####[facility] [address] [place], [place] [address]Dr. Adrianna Caldera UR MICRO IND NOT INDICATED Normal [facility] Comment on above: Performed By: #### P REGU, ERUR ####[facility] [address] [place], [place] [address]Dr. Adrianna Caldera Urobilinogen Qn (U) 0.2 {Micheal'U}/dL Normal 0.2 - 1. 0 [facility] Comment on above: Performed By: #### P DEVENDRA ERUR ####[facility] [address] [id number]. Adrianna Caldera PREG QUANT HCGon 03-22-2022 HCG QUANT 2 mIU/mL Normal [facility] Comment on above: Performed By: #### P REGQNT #### [facility] [address] [address] [address] Adrianna Caldera HCG RANGE SEE BELOW Normal [facility] Comment on above: Result Comment: 5-50 0.2-1 WEEK 50-500 1-2 WEEKS 100-5,000 2-3 WEEKS 500-10,000 3-4 WEEKS 1,000-50,000 4-5 WEEKS 10,000-100,000 5-6 WEEKS 15,000-200,000 6-8 WEEKS 10,000-100,000 2-3 MONTHS Performed By: #### P REGQNT #### [facility] [address] [address] [address] Adrianna Caldera URon 03-22-2022 , QUAL Negative Normal NEGATIVE [facility] Comment on above: Performed By: #### P DEVENDRA ERUR ####[facility] [address] [id number]. Adrianna Caldera PROF CHEM 8 (BAS METB)on Anion gap [Moles/Vol] 10.9 mmol/L Normal [facility] Comment on above: Performed By: #### U ACSIND #### [facility] [address] [place] [address] Dr. Adrianna Caldera Calcium [Mass/Vol] 9.1 mg/dL Normal 8.5-10.1 [facility] Comment on above: Performed By: #### U ACSIND #### [facility] [address] [address] [address] Adrianna Caldera Chloride [Moles/Vol] 105 mmol/L Normal 98-107 [facility] Comment on above: Performed By: #### U ACSIND #### [facility] [address] [address] [address] Adrianna Caldera CO2 [Moles/Vol] 26.0 mmol/L Normal 21.0-32.0 [facility] Comment on above: Performed By: #### U ACSIND #### [facility] [address] [address] [address] Adrianna Caldera Creatinine [Mass/Vol] 0.98 mg/dL Normal 0.55-1.02 [facility] Comment on above: Performed By: #### U ACSIND #### [facility] [address] [address] [address] Adrianna Caldera EGFR-AF NAURUAN >60 Normal >=60 [facility] Comment on above: Performed By: #### U ACSIND #### [facility] [address] [address] [address] Adrianna Caldera EGFR-NON AF NAURUAN >60 Normal >=60 [facility] Comment on above: Performed By: #### U ACSIND #### [facility] [address] [address] [address] Adrianna Caldera Glucose [Mass/Vol] 87 mg/dL Normal 74-106 [facility] Comment on above: Performed By: #### U ACSIND #### [facility] [address] [address] [address] Adrianna Caldera Potassium [Moles/Vol] 3.9 mmol/L Normal 3.5-5.1 [facility] Comment on above: Performed By: #### U ACSIND #### [facility] [address] [address] [address] Adrianna Caldera Sodium [Moles/Vol] 138 mmol/L Normal 136-145 [facility] Comment on above: Performed By: #### U ACSIND #### [facility] [address] [address] [address] Adrianna Caldera Urea nitrogen [Mass/Vol] 11.0 mg/dL Normal 7.0-18.0 [facility] Comment on above: Performed By: #### U ACSIND #### [facility] [address] [address] [address] Adrianna Caldera Urea nitrogen/Creatinine [Mass ratio] 11.2 mg/mg Normal [facility] Comment on above: Performed By: #### U ACSIND #### [facility] [address] [place] [address] Dr. Adrianna Caldera PREG QUANT HCGon 03-03-2022 HCG QUANT 1 mIU/mL Normal [facility] Comment on above: Performed By: #### P REGQNT #### [facility] [address] [place] [address] Dr. Adrianna Caldera HCG RANGE SEE BELOW Normal [facility] Comment on above: Result Comment: 5-50 0.2-1 WEEK 50-500 1-2 WEEKS 100-5,000 2-3 WEEKS 500-10,000 3-4 WEEKS 1,000-50,000 4-5 WEEKS 10,000-100,000 5-6 WEEKS 15,000-200,000 6-8 WEEKS 10,000-100,000 2-3 MONTHS Performed By: #### P REGQNT #### [facility] [address] [place] [address] Dr. Adrianna Caldera Creatinine and Glomerular fi ltration rate.predicted panel (S/P/Bld)Ordered By: Tae Natarajan on 02-10-2022 Creatinine [Mass/Vol] 1.03 mg/dL 0.44-1.03 [facility] Estimated glomerular filtrat ion rate (GFR) non- AmericanOrdered By: Tae Natarajan on 02-10-2022 GFR/1.73 sq M.predicted among non-blacks MDRD (S/P/Bld) [Vol rate/Area] > 60 mL/Min [facility] HCG ( test) IA.rapi d Ql (U)Ordered By: Tae Natarajan on 02-10-2022 HCG ( test) Ql (U) Negative [facility] No Panel InformationOrdered By: Tae Natarajan on 02-10-2022 Estimated GFR () > 60 mL/Min [facility] Comment on above: GFR estimated refere nce range: According to KDOQI guidelines, <60 ml/min/1.73m2 is sufficient to diagnose a patient with chronic kidney disease. Pharmacy Creatinine Clearance (Chem 88.89 [facility] Serum or plasma urea nitroge n measurement (mass/volume)Ordered By: Tae Natarajan on 02-10-2022 Urea nitrogen [Mass/Vol] 9 mg/dL 02-19 [facility] PREG QUANT HCGon 12-04-2021 HCG QUANT <1 Normal [facility] Comment on above: Performed By: #### P REGQNT #### [facility] [address] [address] [address] Adrianna Caldera HCG RANGE SEE BELOW Normal [facility] Comment on above: Result Comment: 5-50 0-1 WEEK 40-300 1-2 WEEKS 100-1,000 2-3 WEEKS 500-6,000 3-4 WEEKS 5,000-200,000 1-2 MONTHS 10,000-100,000 2-3 MONTHS 3,000-50,000 2ND TRIMESTER 1,000-50,000 3RD TRIMESTER Performed By: #### P REGQNT #### [facility] [address] [address] [address] Adrianna Caldera CBC AUTO DIFFon 11-14-2021 BASO # 0.1 103/ul Normal 0.0-0.1 [facility] Comment on above: Performed By: #### C BC ####[facility] [address] [address]DrAung Caldera Basophils/100 WBC (Bld) 0.5 % Normal 0.2-2.0 [facility] Comment on above: Performed By: #### C BC ####[facility] [address] [address]DrAung Caldera EO # 0.1 103/ul Normal 0.0-0.7 [facility] Comment on above: Performed By: #### C BC ####[facility] [address] [address]DrAung Caldera Eosinophils/100 WBC (Bld) 0.8 % Critically low 0.9-7.0 [facility] Comment on above: Performed By: #### C BC ####[facility] H[address] [place], [place] [address]Dr. Adrianna Caldera Erythrocyte distribution width (RBC) [Ratio] 13.0 % Normal 11.0-15.0 [facility] Comment on above: Performed By: #### C BC ####[facility] [address] [place], [place] [address]Dr. Adrianna Caldera Hematocrit (Bld) [Volume fraction] 38.5 % Normal 36.0-48.0 [facility] Comment on above: Performed By: #### C BC ####[facility] [address] [place], [place] [address]Dr. Adrianna Caldera Hemoglobin (Bld) [Mass/Vol] 12.9 g/dL Normal 12.0-16.0 [facility] Comment on above: Performed By: #### C BC ####[facility] [address] [place], [place] [address]Dr. Adrianna Caldera IG # 0.03 10e3/ul Normal 0.00-0.03 [facility] Comment on above: Performed By: #### C BC ####[facility] X[address] [place], [place] [address]Dr. Jemimabenito Caldera IG % 0.3 % Normal 0.0-0.5 [facility] Comment on above: Performed By: #### C BC ####[facility] [address] [place], [place] [address]Dr. Jemimabenito Caldera LYMPH # 2.8 103/ul Normal 1.2-3.8 [facility] Comment on above: Performed By: #### C BC ####[facility] [address] [place], [place] [address]Dr. Jemimabenito Caldera Lymphocytes/100 WBC (Bld) 27.4 % Normal 20.5-60.0 [facility] Comment on above: Performed By: #### C BC ####[facility] Mseg[address] [place], [place] [address]Dr. Adrianna Caldera MANUAL DIFF REQ NO Normal [facility] Comment on above: Performed By: #### C BC ####[facility] [address]vb[address] [place], [place] [address]Dr. Adrianna Caldera MCH (RBC) [Entitic mass] 29.7 pg Normal 26.7-34.0 [facility] Comment on above: Performed By: #### C BC ####[facility] [address] [address]Dr. Adrianna Caldera MCHC (RBC) [Mass/Vol] 33.5 g/dL Normal 29.9-35.2 [facility] Comment on above: Performed By: #### C BC ####[facility] [address] [address]Dr. Adrianna Caldera MCV (RBC) [Entitic vol] 88.7 fL Normal 81.0-99.0 [facility] Comment on above: Performed By: #### C BC ####[facility] [address] [address]Dr. Adrianna Caldera MONO # 0.7 103/ul Normal 0.3-0.8 [facility] Comment on above: Performed By: #### C BC ####[facility] [address] [address]Dr. Adrianna Caldera Monocytes/100 WBC (Bld) 6.5 % Normal 1.7-12.0 [facility] Comment on above: Performed By: #### C BC ####[facility] [address] [address]Dr. Adrianna Caldera NEUT # 6.5 103/ul Normal 1.4-6.5 [facility] Comment on above: Performed By: #### C BC ####[facility] [address] [address]Dr. Adrianna Caldera Neutrophils/100 WBC (Bld) 64.5 % Normal 43.0-75.0 [facility] Comment on above: Performed By: #### C BC ####[facility] [address] [address]Dr. Adrianna Caldera Platelet mean volume (Bld) [Entitic vol] 10.4 fL Normal 9.5-13.5 [facility] Comment on above: Performed By: #### C BC ####[facility] [address] [address]Dr. Adrianna Caldera PLT 324 103/ul Normal 150-450 [facility] Comment on above: Performed By: #### C BC ####[facility] [address] [address]Dr. Adrianna Caldera RBC 4.34 106/ul Normal 4.20-5.40 [facility] Comment on above: Performed By: #### C BC ####[facility] [address] [address]Dr. Adrianna Caldera WBC 10.1 103/ul Normal 4.0-11.0 [facility] Comment on above: Performed By: #### C BC ####[facility] [address] [place], [place] [address]Dr. Adrianna Caldera ER URINE PROFILEon 2 Bilirubin Ql (U) Negative Normal NEGATIVE [facility] Comment on above: Performed By: #### HECTOR HAYNESU UMICRO ####[facility] Iv[address]rx[address] [place], [place] [address]Dr. Adrianna Caldera Clarity (U) CLEAR Normal CLEAR [facility] Comment on above: Performed By: #### JOHN HAYNES UMICRO ####[facility] [address] [place], [place] [address]Dr. Adrianna Caldera Color (U) LT. YELLOW Normal YELLOW [facility] Comment on above: Performed By: #### HECTOR HAYNESU UMICRO ####[facility] [address] [address]Dr. Adrianna Werner ERUAHD A micrscopic examination will be performed if indicated. Normal [facility] Comment on above: Performed By: #### HECTOR HAYNESU UMICRO ####[facility] [address] [address]Dr. Adrianna Werner Glucose Ql (U) Negative Normal NEGATIVE [facility] [place] [facility] Comment on above: Performed By: #### Rojelio RUAugie PREGU UMICRO ####[facility] [address] [place], [place] [address]Dr. Adrianna Caldera Hemoglobin Ql (U) LARGE Abnormal NEGATIVE [facility] Comment on above: Performed By: #### JOHN HAYNES UMICRO ####[facility] [address] [address]Dr. Adrianna Caldera Ketones Ql (U) Negative Normal NEGATIVE [facility] [place] [facility] Comment on above: Performed By: #### JOHN HAYNES UMICRO ####[facility] [address] [address]Dr. Adrianna Caldera LEUKOCYTES Negative Normal NEGATIVE [facility] Comment on above: Performed By: #### JOHN HAYNES UMICRO ####[facility] [address] [address]Dr. Adrianna Caldera Nitrite Ql (U) Negative Normal NEGATIVE [facility] Comment on above: Performed By: #### JOHN HAYNES UMICRO ####[facility] [address] [address]Dr. Adrianna Caldera pH (U) 6.5 [pH] Normal 5-9 [facility] Comment on above: Performed By: #### JOHN HAYNES UMICRO ####[facility] [address] [address]Dr. Adrianna Caldera SPEC GRAVITY 1.015 Normal 1.005-<=1.0 25 [facility] Comment on above: Performed By: #### OJHN HAYNES UMICRO ####[facility] [address] [address]Dr. Adrianna Caldera UA PROTEIN Negative Normal NEGATIVE/ TRACE [facility] Comment on above: Performed By: #### JOHN HAYNES UMICRO ####[facility] [address] [address]Dr. Adrianna Caldera UR MICRO IND INDICATED Normal [facility] Comment on above: Performed By: #### JOHN HAYNES UMICRO ####[facility] [address] [address]DrAung Caldera Urobilinogen Qn (U) 0.2 {Micheal'U}/dL Normal 0.2 - 1. 0 [facility] Comment on above: Performed By: #### E JOHN MONDRAGON UMICRO ####[facility] [address] [place], [place] [address]PcDr. Adrianna Caldera URon 11-14-2021 , QUAL Negative Normal NEGATIVE [facility] Comment on above: Performed By: #### E JOHN MONDRAGON UMICRO ####[facility] [address] [place], [place] [address]LzAung Caldera PROF CHEM 8 (BAS METB)on Anion gap [Moles/Vol] 13.5 mmol/L Normal [facility] Comment on above: Performed By: #### U ACSIND #### [facility] [address] [address] [address] Adrianna Caldera Calcium [Mass/Vol] 8.7 mg/dL Normal 8.5-10.1 [facility] Comment on above: Performed By: #### U ACSIND #### [facility] [address] [address] [address] Adrianna Caldera Chloride [Moles/Vol] 102 mmol/L Normal 98-107 [facility] Comment on above: Performed By: #### U ACSIND #### [facility] [address] [address] [address] Adrianna Caldera CO2 [Moles/Vol] 27.3 mmol/L Normal 21.0-32.0 [facility] Comment on above: Performed By: #### U ACSIND #### [facility] [address] [address] [address] Adrianna Caldera Creatinine [Mass/Vol] 0.85 mg/dL Normal 0.55-1.02 [facility] Comment on above: Performed By: #### U ACSIND #### [facility] [address] [address] [address] Adrianna Caldera EGFR-AF NAURUAN >60 Normal >=60 [facility] Comment on above: Performed By: #### U ACSIND #### [facility] [address] [address] [address] Adrianna Caldera EGFR-NON AF NAURUAN >60 Normal >=60 [facility] Comment on above: Performed By: #### U ACSIND #### [facility] [address] [address] [address] Adrianna Caldera Glucose [Mass/Vol] 104 mg/dL Normal 74-106 [facility] Comment on above: Performed By: #### U ACSIND #### [facility] [address] [address] [address] Adrianna Caldera Potassium [Moles/Vol] 3.8 mmol/L Normal 3.5-5.1 [facility] Comment on above: Performed By: #### U ACSIND #### [facility] [address] [address] [address] Adrianna Caldera Sodium [Moles/Vol] 139 mmol/L Normal 136-145 [facility] Comment on above: Performed By: #### U ACSIND #### [facility] [address] [address] [address] Adrianna Caldera Urea nitrogen [Mass/Vol] 8.0 mg/dL Normal 7.0-18.0 [facility] Comment on above: Performed By: #### U ACSIND #### [facility] [address] [address] [address] Adrianna Caldera Urea nitrogen/Creatinine [Mass ratio] 9.4 mg/mg Normal [facility] Comment on above: Performed By: #### U ACSIND #### [facility] [address] [address] [address] Adrianna Caldera URINE MICROSCOPIC ONLYon BACTERIA NONE SEEN Normal NONE SEEN [facility] Comment on above: Performed By: #### E JOHN MONDRAGON UMICRO ####[facility] [address] [place], [place] [address]WyDr. Adrianna Caldera Bacteria identified Cx Nom (U) NOT INDICATED Normal [facility] Comment on above: Performed By: #### JOHN HAYNES UMICRO ####[facility] [address] [id number]. Adrianna Caldera CAST NONE SEEN Normal NONE SEEN [facility] Comment on above: Performed By: #### HECTOR HAYNESU UMICRO ####[facility] [address] [id number]. Jemimabenito Caldera Crystals LM Nom (Urine sed) NONE SEEN Normal NONE SEEN [facility] Comment on above: Performed By: #### HECTOR HAYNESU UMICRO ####[facility] [address] [id number]. Adrianna Werner Epithelial cells LM Ql (Urine sed) RARE Normal NONE SEEN /RARE [facility] Comment on above: Performed By: #### Rojelio MONDRAGON PREGU UMICRO ####[facility] [address] [address]Dr. Adrianna Caldera MUCOUS NONE SEEN Normal NONE SEEN [facility] Comment on above: Performed By: #### HECTOR HAYNESU UMICRO ####[facility] [address] [id number]. Adrianna Werner RBC 10-20 Abnormal 0-2 [facility] Comment on above: Performed By: #### HECTOR HAYNESU UMICRO ####[facility] [address] [id number]. Adrianna Werner WBC 0-2 Abnormal NONE SEEN [facility] Comment on above: Performed By: #### Rojelio MONDRAGON PREGU UMICRO ####[facility] [address] [address]Dr. Jemimabenito Caldera HCG, Quantitative, on 10-12-2021 hCG Quant <1 <5 mIU/mL [facility] Comment on above: Non-preg premeno <=5 Postmeno <=8 Male <=3 If HCG results do not concur with clinical observations, additional testing to confirm results is recommended. Elevated results not associated with may be found in patients with other diseases such as tumors of the germ cells (testis, ovaries, etc.), bladder, pancreas, stomach, lungs, and liver. [facility] CBC with Auto Differentialon 10-11-2021 Absolute Eos # 0.08 [facility] th Absolute Immature Granulocyte <0.03 [facility] Absolute Lymph # 1.85 [facility] alth Absolute [place] [facility] Basophils (Bld) [#/Vol] 0.04 10*3/uL [facility] Basophils/100 WBC (Bld) 1 % 0 - 2 % [facility] Eosinophils/100 WBC (Bld) 1 % 1 - 4 % [facility] Hematocrit (Bld) [Volume fraction] 38.9 % 36.3 - 47.1 % [facility] Hemoglobin.gastrointest inal spec 1 Ql (Stl) 12.7 g/dL 11.9 - 15.1 g/dL [facility] Immature granulocytes/100 WBC (Bld) 0 % 0 [facility] Lymphocytes/100 WBC (Bld) 29 % 24 - 43 % [facility] MCH (RBC) [Entitic mass] 29.7 pg 25.2 - 33.5 pg [facility] MCHC (RBC) [Mass/Vol] 32.6 g/dL 28.4 - 34.8 g/dL [facility] MCV (RBC) [Entitic vol] 90.9 fL 82.6 - 102.9 fL [facility] Monocytes/100 WBC (Bld) 9 % 3 - 12 % [facility] NRBC Automated 0.0 0.0 per 100 WBC [facility] Platelet distribution width (Bld) [Ratio] 12.9 % 11.8 - 14.4 % [facility] Platelet mean volume (Bld) [Entitic vol] 10.3 fL 8.1 - 13.5 fL [facility] Platelets (Bld) [#/Vol] 351 10*3/uL [facility] RBC (Bld) [#/Vol] 4.28 10*6/uL 3.95 - 5.1 1 m/uL [facility] Segmented neutrophils/100 WBC (Bld) 60 % 36 - 65 % [facility] Segs Absolute 3.90 [facility] [place] h WBC (Bld) [#/Vol] 6.5 10*3/uL [facility] CT ABDOMEN PELVIS W IV CONTR AST [...] No hydronephrosis. Gallbladder is not remarkable. GI/Bowel: Rhnw-ga-xukpzzyc retained stool without bowel obstruction. No pericecal [...] No hydronephrosis. Gallbladder is not remarkable. GI/Bowel: Fzzb-wi-qpauqzqt retained stool without bowel obstruction. No pericecal [...] Negative acute inflammatory process or bowel obstruction. [employer] Work Phone: Radiology Study observation (narrative) [employer] Work Phone: CT ABDOMEN PELVIS W IV CONTR AST Additional Contrast? NoneOrdered By: Ashutosh Omalley on 10-11-2021 [employer] Work Phone: Comprehensive Metabolic Pane l w/ Reflex to MGon 10-11-2021 Albumin [Mass/Vol] 4.3 g/dL 3.5 - 5.2 g/dL [employer] Albumin/Globulin [Mass ratio] 1.7 {ratio} [employer] ALP (Bld) [Catalytic activity/Vol] 73 U/L 35 - 104 U/L [employer] ALT [Catalytic activity/Vol] 21 U/L 5 - 33 U/L [employer] Anion gap [Moles/Vol] 7 mmol/L Low 9 - 17 mmol/L [employer] AST [Catalytic activity/Vol] 15 U/L <32 [employer] Bilirubin [Mass/Vol] 0.25 mg/dL Low 0.3 - 1 .2 mg/dL [employer] Calcium [Mass/Vol] 9.1 mg/dL 8.6 - 10. 4 mg/dL [facility] Chloride [Moles/Vol] 105 mmol/L 98 - 10 7 mmol/L [facility] CO2 [Moles/Vol] 26 mmol/L 20 - 31 mmol/L [facility] Creatinine [Mass/Vol] 0.75 mg/dL 0.50 - 0.90 mg/dL [facility] Free PSA/Total PSA [Mass fraction] 6.8 g/dL 6.4 - 8.3 g/dL [facility] GFR >60 >60 mL/min [facility] GFR Non- >60 >60 mL/min [facility] Glucose [Mass/Vol] 116 mg/dL High 70 - 99 mg/dL [facility] Interpretation and review of laboratory results Abnormal [facility] Potassium [Moles/Vol] 3.9 mmol/L 3.7 - 5.3 mmol/L [facility] Sodium [Moles/Vol] 138 mmol/L 135 - 144 mmol/L [facility] Urea nitrogen (BldV) [Mass/Vol] 9 mg/dL 6 - 20 mg/dL [facility] Urea nitrogen/Creatinine (Bld) [Mass ratio] 12 [facility] Laboratory - Chemistry and C hemistry - challengeon 10-11-2021 GFR/1.73 sq M.predicted MDRD (S/P/Bld) [Vol rate/Area] [facility] Comment on above: Average GFR for 20-2 9 years old: 116 mL/min/1.73sq m Chronic Kidney Disease: <60 mL/min/1.73sq m Kidney failure: <15 mL/min/1.73sq m eGFR calculated using average adult body mass. Additional eGFR calculator available at: http://www.FancyBox/multiple_crcl_2012.htm Stage 1: Some kidney damage normal GFR Stage 2: Mild kidney damage GFR 60-89 Stage 3: Moderate kidney damage GFR 30-59 Stage 4: Severe kidney damage GFR 15-29 Stage 5: Severe kidney damage GFR <15 ESRD - chronic treatment by dialysis or transplant Lipaseon 10-11-2021 Lipase [Catalytic activity/Vol] 39 U/L 13 - 60 U/L [facility] Microscopic Urinalysison - [facility] [employer] Bacteria, UA TRACE Abnormal None [facility] [employer] Crystals, UA 2 TO 5 CALCIUM OXALATE Abnormal None /HPF [facility] Epithelial Cells UA 2 TO 5 [facility] Interpretation and review of laboratory results Abnormal [facility] RBC, UA 2 TO 5 [facility] [employer] WBC, UA 0 TO 2 [facility] No Panel Informationon 10-11 [facility] [employer] , Urineon 2 Beta HCG ( test) Ql (U) Negative NEGATIVE [facility] Comment on above: Specimens with hCG l evels near the threshold of the test (25 mIU/mL) may give a negative or indeterminate result. In such cases, another test should be performed with a new specimen in 48-72 hours. If early is suspected clinically in this setting, correlation with quantitative serum b-hCG level is suggested. [employer] has confirmed the use of plasma for this test. This has not been cleared or approved by the U.S. Food and Drug Administration. The FDA has determined that such clearance is not necessary. [facility] Urinalysis with Reflex to Cu ltureon 10-11-2021 Bilirubin Urine Negative NEGATIVE [facility] Color, UA Yellow Yellow [facility] Glucose, Ur Negative NEGATIVE [facility] Interpretation and review of laboratory results Abnormal [facility] Ketones Ql (U) Negative NEGATIVE [facility] Leukocyte esterase Test strip Ql (U) Negative NEGATIVE [facility] Nitrite, Urine Negative NEGATIVE [facility] pH, UA 6.0 [facility] Protein, UA Negative NEGATIVE [facility] Specific [place], UA >1.030 High [facility] Turbidity UA Clear Clear [facility] Urine Hgb TRACE Abnormal NEGATIVE [facility] Urobilinogen, Urine Normal Normal [facility] PREG QUANT HCGon 10-09-2021 HCG QUANT <1 Normal [facility] Comment on above: Performed By: #### P REGQNT ####[facility] [address] [place] [id number]. Jemimabenito Caldera HCG RANGE SEE BELOW Normal [facility] Comment on above: Result Comment: 5-50 0-1 WEEK 40-300 1-2 WEEKS 100-1,000 2-3 WEEKS 500-6,000 3-4 WEEKS 5,000-200,000 1-2 MONTHS 10,000-100,000 2-3 MONTHS 3,000-50,000 2ND TRIMESTER 1,000-50,000 3RD TRIMESTER Performed By: #### P REGQNT ####[facility] [address] [place], [place] [id number]. Adrianna Caldera CULTURE, URINE, ROUTINEon CULTURE, URINE, ROUTINE SEE NOTE Abnormal [facility] Comment on above: Result Comment: CULTURE, URINE, ROUTINE Micro Number: [id number] Test Status: Final Specimen Source: Urine Specimen [...] Performed By: #### 3 95 #### [facility] [address], [address] [place] [address] Gravel Screener: Javid Broussard MD XR CHEST PORTABLEon 03-16-20 20 No acute process. [facility] [place]OIE [place]OKES EXAMINATION: ONE XRAY VIEW OF THE CHEST 03/16/2020 3:33 pm COMPARISON: 07/13/2014 HISTORY: ORDERING SYSTEM PROVIDED HISTORY: cough, dyspnea TECHNOLOGIST PROVIDED HISTORY: cough, dyspnea FINDINGS: The lungs are without acute focal process. There is no effusion or pneumothorax. The cardiomediastinal silhouette is without acute process. The osseous structures are without acute process. [place], [place] James, Mhpn Incoming Radiant Results From [employer]/Pacs - 03/16/2020 3:43 PM EDT EXAMINATION: ONE XRAY VIEW OF THE CHEST 03/16/2020 3:33 pm COMPARISON: 07/13/2014 HISTORY: ORDERING SYSTEM PROVIDED HISTORY: cough, dyspnea TECHNOLOGIST PROVIDED HISTORY: cough, dyspnea FINDINGS: The lungs are without acute focal process. There is no effusion or pneumothorax. The cardiomediastinal silhouette is without acute process. The osseous structures are without acute process. IMPRESSION: No acute process. [place] Urinalysis with Microscopico n 03-03-2020 Amorphous, UA 1+ Abnormal None [place] Bacteria, UA NOT REPORTED None [place], [place] Bilirubin Urine Negative NEGATIVE [place] Casts UA NOT REPORTED /LPF [place] Color, UA YELLO YELLOW [place] Crystals, UA NOT REPORTED None /HPF [place] Epithelial Cells UA None [place] Glucose, Ur Negative NEGATIVE [place] Interpretation and review of laboratory results Abnormal [place] Ketones Ql (U) Negative NEGATIVE [place] Leukocyte esterase Test strip Ql (U) Negative NEGATIVE [place] Mucus, UA NOT REPORTED None [place] Nitrite, Urine Negative NEGATIVE [place] Other Observations UA NOT REPORTED NOT REQ. M [place], [place] pH, UA 6.0 [place] Protein (U) [Mass/Vol] Negative NEGATIVE [place] RBC (U) [#/Vol] None [place] Renal Epithelial, UA NOT REPORTED 0 /HPF [place] Specific [place], UA >1.030 [place] Trichomonas, UA NOT REPORTED None [place] Turbidity UA CLOUDY Abnormal CLEAR [place] Urinalysis Comments NOT REPORTED [place] Urine Hgb TRACE Abnormal NEGATIVE [place] Urobilinogen, Urine Normal Normal [place] WBC, UA 0 TO 2 [place] Yeast, UA NOT REPORTED None [place] HEPATOBILIARY SCAN W EJEC TION FRACTIONon 10-12-2019 Cholesterol [Mass/Vol] No convincing scintigraphic evidence of acute or chronic cholecystitis. [place] EXAMINATION: NUCLEAR MEDICINE HEPATOBILIARY SCINTIGRAPHY (HIDA [...] 30-60 mins. Images were obtained in the RWANDAN projection and regions of interest were drawn [...] range is based on a limited study. [place], [place] James, pn Incoming Radiant Results From [employer]/Pacs - 10/12/2019 2:56 PM EDT EXAMINATION: NUCLEAR [...] 30-60 mins. Images were obtained in the RWANDAN projection and regions of interest were drawn [...] scintigraphic evidence of acute or chronic cholecystitis. [facility] [place], [place] HEPATOBILIARY SCAN W PHAR MACOLOGICAL [...] 30-60 mins. Images were obtained in the RWANDAN projection and regions of interest were drawn [...] Niraj Covarrubias MD 10/12/19 Final result Normal [facility] H. pylori urease IDon 2019 H. pylori urease ID Specimen Description .TISSUE, ST[place] [id number] EXP 04/05/20 Direct Exam NEGATIVE Report Status FINAL 10/06/2019 Normal [facility] Comment on above: Performed By: #### H JOELLE #### [facility] [address] [place] [address] Resource Conservation Manager: Varun Vicente MD [place] [id number] [place], [place] [id number] Resource Conservation Manager: Omar Segundo MD OPERATIVE REPORTon 0 OPERATIVE REPORT [address] [id number] OPERATIVE REPORT PATIENT NAME: LULÚ GAITAN : 1995 MED REC NO: [id number] ROOM: ACCOUNT NO: [id number] ADMIT DATE: 10/05/2019 PROVIDER: Toño Blanc Jr [...] satisfactory condition. TOÑO BLANC JR [id number] Doc#: [id number] CC: Lisseth Alex [facility] Normal [facility] POCT urine pregnancyon 10-04 Beta HCG ( test) Ql (U) Negative NEGATIVE [facility] Comment on above: Specimens with hCG l evels near the threshold of the test (25 mIU/mL) may give a negative or indeterminate result. In such cases, another test should be performed with a new specimen in 48-72 hours. If early is suspected clinically in this setting, correlation with quantitative serum b-hCG level is suggested. [id number] 10-05-2019 SARS-CoV-2 Not Detected Normal Not Detected [facility] Comment on above: Result Comment: (NOT E) The [employer] RealTime SARS-CoV-2 assay is a real-time (rt) reverse transcriptase (RT) polymerase chain reaction (PCR) test intended for the [employer] [place] system. The SARS-CoV-2 primer and probe sets are designed to detect RNA from SARS-CoV-2 in nasopharyngeal (CUSTOMER EXPERT) and oropharyngeal (OP) swabs from patients with [...] The above 1 analytes were performed by [facility] [address] [place] [address] Performed By: #### C OVID #### [facility] [address] [facility] [place] [address] Resource Conservation Manager: Samson Martinez DO [facility] [address] [place] [id number] Resource Conservation Manager: Omar Segundo MD [facility] [address] [place], [place] [id number] Resource Conservation Manager: Bill Jolly MD Surgical Pathologyon 020 Surgical [...] CONSULTATION Patient Name: LULÚ GAITAN [facility] Rec: [id number] Path Number: [id number] [facility] ANATOMIC PATHOLOGY [address] [place] [id number] [facility] Comment on above: Performed By: #### P PPVS #### [facility] [address] [place] [address] [id number] Resource Conservation Manager: Omar Segundo MD [id number] 10-03-2019 SARS-CoV-2,Rapid [facility] Comment on above: Performed By: #### C OVID #### [facility] [address] [facility] [place] [address] Resource Conservation Manager: Samson Martinez DO [place] [id number] [place] [address] Resource Conservation Manager: Omar Segundo MD [facility] [address] [place] [address] Resource Conservation Manager: Bill Jolly MD SARS-CoV-2 Normal [facility] Comment on above: Performed By: #### C OVID #### [facility] [address] [facility] [place] [address] Resource Conservation Manager: Samson Martinez DO [address] [address] Resource Conservation Manager: Omar Segundo MD [facility] [address] [place] [address] Resource Conservation Manager: Bill Jolly MD SARS-CoV-2 Source .NASOPHARYNGEAL SWAB Normal [facility] Comment on above: Performed By: #### C OVID #### [facility] [address] [place] [address] Resource Conservation Manager: Samson Martinez DO [address] [address] Resource Conservation Manager: Omar Segundo MD [facility] [address] [place] [address] Resource Conservation Manager: Bill Jolly MD XR ABDOMEN (KUB) (SINGLE AP VIEW)on 02-08-2019 Nonspecific nonobstructive bowel gas pattern. No definite calcified urinary tract stones are seen. [facility] EXAMINATION: ONE SUPINE XRAY VIEW(S) OF THE [...] nonobstructive bowel gas pattern. No unusual calcifications. [place] James, Mhpn Incoming Radiant Results From [employer]/Pacs - 02/08/2019 4:29 PM EDT EXAMINATION: ONE [...] definite calcified urinary tract stones are seen. [place] Urinalysis with Microscopico n 02-06-2019 Amorphous, UA NOT REPORTED None [place] Bacteria, UA TRACE Abnormal None [place] Bilirubin Urine Negative NEGATIVE [place] Casts UA NOT REPORTED /LPF [place] Color, UA YELLOW YELLOW [place] Crystals UA NOT REPORTED None /HPF [place] Epithelial Cells UA 2 TO 5 [place] Glucose, Ur Negative NEGATIVE [place] Interpretation and review of laboratory results Abnormal [place] Ketones Ql (U) Negative NEGATIVE [place] Leukocyte esterase Test strip Ql (U) Negative NEGATIVE [place] Mucus, UA 1+ Abnormal None [place] Nitrite, Urine Negative NEGATIVE [place] Other Observations UA NOT REPORTED NOT REQ. M [place] pH, UA 7.0 [place] Protein (U) [Mass/Vol] Negative NEGATIVE [place] RBC (U) [#/Vol] 0 TO 2 [place] Renal Epithelial, Urine NOT REPORTED 0 /HPF [place] Specific [place], UA 1.020 [place], [place] Trichomonas, UA NOT REPORTED None [facility] [place] Turbidity UA CLEAR CLEAR [place] Urinalysis Comments NOT REPORTED [place] Urine Hgb TRACE Abnormal NEGATIVE [place] Urobilinogen, Urine Normal Normal [place] WBC, UA 0 TO 2 [place] Yeast, UA NOT REPORTED None [place] - [place] Wet prep, genitalon 02-07-20 19 Direct Exam NO TRICHOMONAS SEEN [place] Direct Exam YEAST [place] Direct Exam CLUE CELLS SEEN Abnormal [place] Interpretation and review of laboratory results Abnormal [place] Special Requests NOT REPORTED [place] Specimen Description .VAGINA [place] Vital Signs Date Time Vital Sign Value Performing Clinician Facility 07-07-2023 10:35-0500 Body height 165.1 cm Matthew Lemus DO Work Phone: [facility] 07-07-2023 10:35-0500 Body mass index (BMI) [Ratio] 25.61 kg/m2 Matthew Lemus DO Work Phone: [facility] 07-07-2023 10:35-0500 Body temperature 97.7 [degF] Matthew Lemus [employer] Work Phone: [facility] 07-07-2023 10:35-0500 Body weight 69.81 kg Matthew Lemus [employer] Work Phone: [facility] 07-07-2023 10:35-0500 Diastolic blood pressure 70 mm[Hg] Matthew Lemus [employer] Work Phone: [facility] 07-07-2023 10:35-0500 Heart rate 100 /min Matthew Lemus [employer] Work Phone: [facility] 07-07-2023 10:35-0500 SaO2% (BldA) [Mass fraction] 96 % Matthew Pamelahas DO Work Phone: [facility] 07-07-2023 10:35-0500 Systolic blood pressure 100 mm[Hg] Matthew Yuhas DO Work Phone: [facility] 05-19-2023 15:36-0500 Diastolic blood pressure 59 mm[Hg] DO Matthew Pamelahas Work Phone: [facility] 05-19-2023 15:36-0500 Heart rate 95 /min DO Matthew Pamelahas Work Phone: [facility] 05-19-2023 15:36-0500 Respiratory rate 16 /min DO Matthew Pamelahas Work Phone: [facility] 05-19-2023 15:36-0500 SaO2% (BldA) [Mass fraction] 99 % DO Matthew Pamelahas Work Phone: [facility] 05-19-2023 15:36-0500 Systolic blood pressure 109 mm[Hg] DO Matthew Farmerhas Work Phone: [facility] 05-19-2023 12:39-0500 Body height 165.1 cm DO Matthew Farmerhas Work Phone: [facility] 05-19-2023 12:39-0500 Body weight 70.76 kg DO Matthew Farmerhas Work Phone: [facility] 05-10-2023 11:11-0500 Diastolic blood pressure 78 mm[Hg] Rishi MARSHALL [facility] 05-10-2023 11:11-0500 Heart rate 72 /min Rishi MARSHALL [facility] 05-10-2023 11:11-0500 Systolic blood pressure 117 mm[Hg] Rishi MARSHALL [facility] 04-27-2023 13:30-0500 Body height 166.37 cm Imad Asaad Other [employer] Other 04-27-2023 13:30-0500 Body mass index (BMI) [Ratio] 25.71 kg/m2 Imad Asaad Other [employer] Other 04-27-2023 13:30-0500 Body weight 71.17 kg Imad Asaad Other [employer] Other 02-11-2023 18:20-0400 Body height 166.37 cm Sarah Monica Other [employer] Other 02-11-2023 18:20-0400 Body mass index (BMI) [Ratio] 27.69 kg/m2 Sarah Anderson Other [employer] Other 02-11-2023 18:20-0400 Body temperature 98.1 [degF] Sarah Anderson Other [employer] Other 02-11-2023 18:20-0400 Body weight 76.66 kg Sarah Anderson Other [employer] Other 02-11-2023 18:20-0400 Diastolic blood pressure 78 mm[Hg] Sarah Andesron Other [employer] Other 02-11-2023 18:20-0400 Respiratory rate 18 /min Sarah Anderson Other [employer] Other 02-11-2023 18:20-0400 SaO2% (BldA) [Mass fraction] 99 % Sarah Anderson Other [employer] Other 02-11-2023 18:20-0400 Systolic blood pressure 116 mm[Hg] Sarah Anderson Other [facility] [employer] Other 02-06-2023 07:30-0400 Body temperature 98.1 [degF] DO Matthew Farmerhas Work Phone: [facility] 02-06-2023 07:30-0400 Diastolic blood pressure 60 mm[Hg] DO Matthew Pamelahas Work Phone: [facility] 02-06-2023 07:30-0400 Heart rate 83 /min DO Matthew Pamelahas Work Phone: [facility] 02-06-2023 07:30-0400 Respiratory rate 18 /min DO Matthew Farmerhas Work Phone: [facility] 02-06-2023 07:30-0400 SaO2% (BldA) [Mass fraction] 97 % DO Matthew Farmerhas Work Phone: [facility] 02-06-2023 07:30-0400 Systolic blood pressure 102 mm[Hg] DO Matthew Farmerhas Work Phone: [facility] 02-03-2023 14:17-0400 Body height 165.1 cm DO Matthew Farmerhas Work Phone: [facility] 02-02-2023 23:53-0400 Body weight 74.15 kg DO Matthew Farmerhas Work Phone: [facility] 06-30-2022 23:12-0500 Diastolic blood pressure 56 mm[Hg] Courtney Vaughan MD Work Phone: [facility] 06-30-2022 23:12-0500 Heart rate 88 /min Courtney Vaughan MD Work Phone: [facility] [employer] 06-30-2022 23:12-0500 Respiratory rate 16 /min Courtney Vaughan MD Work Phone: [employer] 06-30-2022 23:12-0500 Systolic blood pressure 100 mm[Hg] Courtney Vaughan MD Work Phone: [employer] 06-30-2022 22:21-0500 Body height 165.1 cm Courtney Vaughan MD Work Phone: [employer] 06-30-2022 21:13-0500 SaO2% (BldA) [Mass fraction] 98 % Courtney Vaughan MD Work Phone: [employer] 06-30-2022 18:31-0500 Body mass index (BMI) [Ratio] 28.96 kg/m2 Courtney Vaughan MD Work Phone: [employer] 06-30-2022 18:31-0500 Body weight 78.93 kg Courtney Vaughan MD Work Phone: [employer] 06-30-2022 18:27-0500 Body temperature 98.4 [degF] Courtney Vaughan MD Work Phone: [employer] 06-17-2022 17:10-0500 Diastolic blood pressure 65 mm[Hg] [facility] 06-17-2022 17:10-0500 Systolic blood pressure 114 mm[Hg] [facility] 06-17-2022 17:10-0500 Systolic blood pressure 110 mm[Hg] Bridgette Ortega [place] 06-17-2022 17:00-0500 Body height 166.37 cm Bridgette Ortega [facility] [employer] 06-17-2022 17:00-0500 Body mass index (BMI) [Ratio] 28.43 kg/m2 Bridgette Ortega [place] [facility] 06-17-2022 17:00-0500 Body surface area Derived from formula 1.91 m2 Bridgette [place] [employer] 06-17-2022 17:00-0500 Body weight 78.7 kg Bridgette Ortega [facility] 06-17-2022 17:00-0500 Body weight 0.1 {percentile} Bridgette [employer] 06-17-2022 17:00-0500 Diastolic blood pressure 70 mm[Hg] Bridgette [employer] 06-17-2022 17:00-0500 Heart rate 72 /min Bridgette [facility] 06-17-2022 17:00-0500 Systolic blood pressure 118 mm[Hg] Bridgette Lewis [employer] 06-15-2022 17:35-0500 Body temperature 98.1 [degF] Maricel [employer] 06-15-2022 17:35-0500 Body weight 77.57 kg Maricel [employer] 06-15-2022 17:35-0500 Diastolic blood pressure 62 mm[Hg] [employer] 06-15-2022 17:35-0500 Heart rate 80 /min [employer] 06-15-2022 17:35-0500 Respiratory rate 16 /min [employer] 06-15-2022 17:35-0500 Systolic blood pressure 110 mm[Hg] [employer] 05-17-2022 11:45-0500 SaO2% (BldA) [Mass fraction] 98 % [employer] 05-17-2022 10:59-0500 Body height 166.37 cm Maricel [employer] 05-17-2022 10:59-0500 Body mass index (BMI) [Ratio] 28.19 kg/m2 Maricel [employer] 05-17-2022 10:59-0500 Body surface area Derived from formula 1.9 m2 Maricel [employer] 05-17-2022 10:59-0500 Body temperature 98.5 [degF] Maricel [employer] 05-17-2022 10:59-0500 Body weight 78.02 kg Maricel [employer] 05-17-2022 10:59-0500 Body weight 0.1 {percentile} [employer] 05-17-2022 10:59-0500 Diastolic blood pressure 60 mm[Hg] [employer] 05-17-2022 10:59-0500 Heart rate 90 /min Maricel [employer] 05-17-2022 10:59-0500 Respiratory rate 18 /min Maricel [employer] 05-17-2022 10:59-0500 Systolic blood pressure 112 mm[Hg] Maricel [employer] 02-10-2022 20:45-0400 Diastolic blood pressure 64 mm[Hg] DO Matthew Miltons Work Phone: [facility] 02-10-2022 20:45-0400 Heart rate 81 /min DO Matthew Pamelahas Work Phone: [facility] 02-10-2022 20:45-0400 Respiratory rate 16 /min DO Matthew Pamelahas Work Phone: [facility] 02-10-2022 20:45-0400 SaO2% (BldA) [Mass fraction] 99 % DO Matthew Lemus Work Phone: [facility] 02-10-2022 20:45-0400 Systolic blood pressure 100 mm[Hg] DO Matthew Lemus Work Phone: [facility] 02-10-2022 14:17-0400 Body height 165.1 cm DO Matthew Lemus Work Phone: [facility] 02-10-2022 14:17-0400 Body weight 81.64 kg DO Matthew Lemsu Work Phone: [facility] 02-09-2022 10:01-0400 Body height 166.37 cm Kaleigh Harir 02-09-2022 10:01-0400 Diastolic blood pressure 64 mm[Hg] Kaleigh Guevara [employer] 02-09-2022 10:01-0400 Heart rate 120 /min Kaleigh Guevara [employer] 02-09-2022 10:01-0400 Systolic blood pressure 118 mm[Hg] Kaleigh Ismael [employer] 01-29-2022 11:30-0400 Body height 166.37 cm Bridgette Ortega [employer] 01-29-2022 11:30-0400 Diastolic blood pressure 62 mm[Hg] Bridgette Lewis [employer] 01-29-2022 11:30-0400 Heart rate 100 /min Bridgette Ortega [employer] 01-29-2022 11:30-0400 Systolic blood pressure 114 mm[Hg] Bridgette Lewis [employer] 08-29-2022 10:30-0400 Body height 166.37 cm Tae Natarajan Other [employer] Other 01-25-2022 10:30-0400 Body mass index (BMI) [Ratio] 29.49 kg/m2 Tae Stanleyrer Other [employer] Other 01-25-2022 10:30-0400 Body temperature 97.8 [degF] Tae Natarajan Other [employer] Other 01-25-2022 10:30-0400 Body weight 81.65 kg Tae Stanleyreaugie Other [employer] Other 01-25-2022 10:30-0400 Diastolic blood pressure 64 mm[Hg] Tae Tsaiaugie Other [employer] Other 01-25-2022 10:30-0400 SaO2% (BldA) [Mass fraction] 99 % Tae Natarajan Other [employer] Other 01-25-2022 10:30-0400 Systolic blood pressure 110 mm[Hg] Tae Stanleyrer Other [employer] Other 01-19-2022 10:59-0400 Body height 166.37 cm Bridgette Ortega [facility] [employer] 01-19-2022 10:59-0400 Body mass index (BMI) [Ratio] 29.5 kg/m2 Bridgette Dejesushard [employer] 01-19-2022 10:59-0400 Body surface area Derived from formula 1.94 m2 Bridgette Dejesushard [employer] 01-19-2022 10:59-0400 Body weight 81.65 kg Bridgette Ortega [employer] 01-19-2022 10:59-0400 Diastolic blood pressure 72 mm[Hg] Bridgette Ortega [employer] 01-19-2022 10:59-0400 Heart rate 112 /min Bridgette Ortega [place] 01-19-2022 10:59-0400 Systolic blood pressure 114 mm[Hg] Bridgette [employer] 10-11-2021 18:26-0400 Diastolic blood pressure 77 mm[Hg] Matthew Lemus Work Phone: [employer] 10-11-2021 18:26-0400 Systolic blood pressure 130 mm[Hg] Matthew Lemus Work Phone: [employer] 10-11-2021 14:00-0400 Body mass index (BMI) [Ratio] 28.46 kg/m2 Matthew Lemus Work Phone: [employer] 10-11-2021 14:00-0400 Body temperature 97.81 [degF] Matthew Lemus Work Phone: [employer] 10-11-2021 14:00-0400 Body weight 77.56 kg Matthew Lemus Work Phone: [employer] 10-11-2021 14:00-0400 Heart rate 95 /min Matthew Lemus Work Phone: [employer] 10-11-2021 14:00-0400 Respiratory rate 16 /min Matthew Lemus Work Phone: [employer] 10-11-2021 14:00-0400 SaO2% (BldA) [Mass fraction] 98 % Matthew Lemus Work Phone: [employer] 09-29-2021 13:04-0400 Blood Pressure Location Rishi ROLANDO [facility] [place] 09-29-2021 13:04-0400 Diastolic blood pressure 83 mm[Hg] Rishi MARSHALL [facility] [place] 09-29-2021 13:04-0400 Heart rate 100 /min Rishi MARSHALL [facility] [place] 09-29-2021 13:04-0400 Systolic blood pressure 124 mm[Hg] Rishi MARSHALL [facility] [place] 09-04-2021 09:22-0400 Blood Pressure Location Rishi MARSHALL [facility] [place] 09-04-2021 09:22-0400 Diastolic blood pressure 67 mm[Hg] Rishi MARSHALL [facility] [place] 09-04-2021 09:22-0400 Heart rate 78 /min [facility]ishi [facility]ALL [facility] 09-04-2021 09:22-0400 Respiratory rate 16 /min Rishi MARSHALL [facility] [place] 09-04-2021 09:22-0400 Systolic blood pressure 97 mm[Hg] Rishi MARSHALL [facility] 03-16-2020 15:12-0400 BMI (Body Mass Index) 25.96 kg/m2 [place], [place] 03-16-2020 15:12-0400 Body Temperature 99 [degF] Catracho Oh [facility], [place] 03-16-2020 15:12-0400 Body weight 70.76 kg Catracho Oh [facility] , [place] 03-16-2020 15:12-0400 BP Diastolic 69 mm[Hg] [facility] [place] 03-16-2020 15:12-0400 BP Systolic 125 mm[Hg] [facility] [place] 03-16-2020 15:12-0400 Pulse (Heart Rate) 77 /min [facility] 03-16-2020 15:12-0400 Pulse Oximetry 99 % [facility] [place] 03-16-2020 15:12-0400 Respiratory Rate 18 /min Catracho [facility], [place] 10-05-2019 13:30-0400 Body Temperature 98.1 [degF] [place] 10-05-2019 13:30-0400 BP Diastolic 72 mm[Hg] [place] 10-05-2019 13:30-0400 BP Systolic 110 mm[Hg] [place] 10-05-2019 13:30-0400 Pulse (Heart Rate) 76 /min [place], [place] 10-05-2019 13:30-0400 Pulse Oximetry 100 % [place] 10-05-2019 13:30-0400 Respiratory Rate 18 /min [place], [place] 10-05-2019 10:26-0400 BMI (Body Mass Index) 24.37 kg/m2 [place] 10-05-2019 10:26-0400 Body weight 68.49 kg [place] 10-05-2019 10:26-0400 Height 167.6 cm [place] Encounters Encounter Date Encounter Type Care Provider Facility Start: 02-09-2024 End: 02-09-2024 ambulatory [facility] Start: 02-09-2024 Encounter for [facility] adult medical examination without abnormal findings [facility] Start: 01-23-2024 End: 01-24-2024 [facility] Start: 01-23-2024 End: 01-23-2024 Emergency department [facility] Start: 01-16-2024 End: 01-16-2024 Departed Referred DO Matthew Farmerjulien Work Phone: [facility] Start: 01-16-2024 End: 01-16-2024 ambulatory RON BIANCA Not Available Start: 01-11-2024 End: 01-11-2024 Emergency department patient [facility] Start: 01-10-2024 End: 01-10-2024 ambulatory [facility] Start: 01-10-2024 End: 01-10-2024 ambulatory [facility] Start: 01-07-2024 End: 01-08-2024 Emergency department patient visit [facility] Start: 12-29-2023 End: 12-29-2023 Patient encounter procedure DO Matthew Farmerjulien Work Phone: [facility]Dig[facility] Work Phone: Start: 12-29-2023 End: 12-29-2023 ambulatory DO Matthew Lemus Work Phone: [facility] Work Phone: Start: 12-29-2023 ambulatory [facility] Start: 12-06-2023 End: 12-06-2023 ambulatory [facility] Start: 11-21-2023 End: 11-21-2023 ambulatory [facility] Start: 11-20-2023 End: 11-20-2023 Emergency department patient visit [facility] Start: 11-19-2023 End: 11-20-2023 Emergency department patient visit IFTIKHAR CURRY [facility] Start: 11-17-2023 End: 11-17-2023 Emergency department patient visit BRIDGETTE LEWIS [facility] Start: 11-08-2023 End: 11-08-2023 ambulatory Rishi MARSHALL Facility:[facility] Start: 11-08-2023 End: 11-08-2023 Patient encounter procedure Rishi MARSHALL [facility] Start: 11-08-2023 End: 11-08-2023 ambulatory RON BIANCA Not Available Start: 11-01-2023 End: 11-01-2023 ambulatory RON BIANCA Not Available Start: 09-27-2023 End: 09-27-2023 ambulatory Rishi MARSHALL Facility:[facility] Start: 09-27-2023 End: 09-27-2023 Patient encounter procedure Rishi MARSHALL [facility] Start: 08-04-2023 End: 08-04-2023 ambulatory AUDELIA FABY Not Available Start: 07-27-2023 End: 07-27-2023 ambulatory RON BIANCA Not Available Start: 07-07-2023 End: 07-07-[address] [facility] Start: 07-07-2023 End: 07-07-2023 Office outpatient visit 25 minutes [facility] DO Work Phone: [facility] - [facility] Comment on above: Bipolar 1 disorder ( [facility]) (Primary Dx); Oropharyngeal dysphagia; Generalized anxiety disorder with panic attacks Start: 07-04-2023 End: 07-04-2023 ambulatory RON BIANCA Not Available Start: 06-29-2023 End: 06-29-2023 ambulatory RON BIANCA Not Available Start: 06-13-2023 End: 06-13-2023 ambulatory RON BIANCA Not Available Start: 06-02-2023 End: 06-02-2023 ambulatory JORGE LAMAS [facility] Start: 05-19-2023 End: 05-19-2023 Admission to same day surgery center DO Matthew Lemus Work Phone: [facility] Work Phone: Start: 05-19-2023 End: 05-19-2023 ambulatory DO Matthew Lemus Work Phone: [facility] Work Phone: Start: 05-17-2023 End: 05-17-2023 ambulatory Imad Asaad Other [employer] Other Start: 05-17-2023 Telephone encounter Imad Asaad [facility] Start: 05-12-2023 End: 05-12-2023 Patient encounter procedure DO Matthew Lemus Work Phone: [facility]-CT Scan [facility] [place] Work Phone: Start: 05-12-2023 End: 05-12-2023 ambulatory DO Matthew Lemus Work Phone: [facility] Work Phone: Start: 05-10-2023 End: 05-10-2023 ambulatory Rishi MARSHALL Facility:[facility] [place] Start: 05-10-2023 End: 05-10-2023 Patient encounter procedure Rishi MARSHALL [facility] Start: 04-27-2023 End: 04-27-2023 ambulatory Imad Asaad Other [employer] Other Start: 04-27-2023 Office outpatient ne w 45 minutes Imad Asaad [facility] Start: 04-14-2023 End: 04-14-2023 ambulatory BRIDGETTE LEWIS Facility:CD:[id number] Start: 03-10-2023 End: 03-10-2023 Emergency department patient visit BRIDGETTE LEWIS [facility] Start: 02-11-2023 End: 02-11-2023 ambulatory Sarah Anderson Other [facility] [employer] Other Start: 02-11-2023 Office outpatient visit 15 minutes Sarah Anderson [facility] Start: 02-03-2023 Telephone encounter Christine Macias DO Work Phone: Gastroenterology Comment on above: Appointment Start: 02-02-2023 End: 02-06-2023 Evaluation and management of inpatient DO Matthew Lemus Work Phone: [address] Work Phone: Start: 02-02-2023 ambulatory Casper Arteaga Facility:[facility] Start: 09-23-[address] RON VALENZUELA [...] patient visit Courtney Vaughan MD [facility]: [facility] Comment on above: Hyperemesis [...] Start: 06-15-2022 Office Services Maricel Stafford Other [facility] Office Start: 06-09-[address] MATTHEW LMEUS Facility: [facility] Start: 06-05-2022 End: 06-06-[address] MATTHEW LEMUS Facility:[facility] Start: 05-26-2022 End: 05-27-[address] MATTHEW LEMUS Facility:[facility] Start: 05-17-2022 Office consultation new/estab patient 60 min Maricel Stafford Other [facility] Start: 04-30-2022 End: 05-01-[address] MATTHEW LEMUS Facility:[facility] Start: 04-08-2022 End: 04-09-[address] MATTHEW LEMUS Facility:[facility] Start: 03-29-2022 Lab Bridgette lindsay Other [facility] Office Start: 03-22-2022 End: 03-23-[address] MATTHEW LEMUS Facility:[facility] Start: 03-17-2022 Lab Kaleigh Hernandez ams Other [facility] Office Start: 03-03-2022 End: 03-04-[address] MATTHEW LEMUS Facility:[facility] Start: 02-10-2022 End: 02-10-2022 Admission to same day surgery center DO Matthew Lemus Work Phone: [facility]-Interventional Radiology Start: 02-09-2022 Patient encounter procedure Kaleigh Guevara [facility] Start: 02-09-2022 Periodic preventive med est patient 18-39 yrs Kaleigh Guevara Other [facility] Office Start: 02-04-2022 Encounter for genera l adult medical examination without abnormal findings Bridgette Lewis [employer] Start: 02-04-2022 Lab Bridgette lindsay Other [facility] Office Start: 02-04-2022 Office Services Kaleigh Hernandez ams Other [facility] Start: 01-29-2022 Office outpatient visit 15 minutes Bridgette Lewis Other [facility] Office Start: 01-25-2022 End: 01-25-2022 ambulatory Tae Natarajan Other [place] [facility] Other Start: 01-25-2022 Office outpatient ne w 45 minutes Tae MCCORMICK [facility] Start: 01-19-2022 Office outpatient ne w 30 minutes Bridgette Lewis Other [facility] Office Start: 12-17-2021 Encounter for genera l adult medical examination without abnormal findings [employer] Start: 12-04-2021 End: 12-05-[address] MATTHEW LEMUS Facility:[facility] Start: 11-14-2021 End: 11-14-[address] MATTHEW LEMUS Facility:[facility] Start: 10-12-2021 End: 10-12-2021 Subsequent hospital visit by physician Matthew Lemus Work Phone: [facility] Laboratory Start: 10-11-2021 End: 10-11-2021 Emergency department patient visit Matthew Lemus Work Phone: [facility] ED Comment on above: Lower abdominal pain (Primary Dx) Start: 10-09-2021 End: 10-10-[address] MATTHEW LEMUS Facility:[facility] Start: 09-29-2021 End: 09-29-2021 Patient encounter procedure Rishi MARSHALL [facility] Start: 09-04-2021 End: 09-04-2021 Patient encounter procedure Rishi MARSHALL [facility] [place] Start: 03-16-2020 End: 03-16-2020 Emergency department patient visit Catracho Parisi Work Phone: [facility] ED Comment on above: Viral URI with cough (Primary Dx) Start: 03-07-2020 End: 03-07-2020 Subsequent hospital visit by physician Sona Covid Screening Schedule SONA Covcintia Screening Comment on above: Acute frontal sinusi tis, recurrence not specified Start: 03-03-2020 End: 03-03-2020 Subsequent hospital visit by physician Lisseth MAGALLANES Laboratory Comment on above: Gross hematuria Start: 10-12-2019 End: 10-15-2019 Patient encounter procedure [facility] Start: 10-12-2019 End: 10-14-2019 Subsequent hospital visit by physician Juan A Laguerre Room 2 [facility] Nuclear Medicine Comment on above: Intractable nausea a nd vomiting Start: 10-05-2019 End: 10-05-2019 Patient encounter procedure [facility] Start: 10-05-2019 End: 10-05-2019 Subsequent hospital visit by physician Toño Blanc Work Phone: [facility] Start: 10-03-2019 End: 10-04-2019 Patient encounter procedure BRIANA RUBIO [facility] Start: 10-03-2019 End: 10-03-2019 Subsequent hospital visit by physician Lisseth [place] [facility] Start: 10-02-2019 End: 10-02-2019 Subsequent hospital visit by physician Tonio Shelley19 Pat Screening Schedule [facility] Pre-Admit Testing Comment on above: No Show Start: 02-08-2019 End: 02-10-2019 Subsequent hospital visit by physician Khalida Grey Dr Room 2 [facility] Comment on above: Gross hematuria; Urgency [...] Work Phone: Start: 05-10-2023 Removal of stent iRshi MARSHALL Start: 02-02-2023 Urine culture DO Matthew [...] Phone: Start: 02-09-2022 Docrev cur meds by [facility] Kaleigh de la vega Start: 02-04-2022 Comprehensive metabolic panel Kaleigh camp Start: 02-04-2022 Erythrocyte mean corpuscular volume determination Kaleigh Ismael Start: 02-04-2022 Lipid panel Kaleigh Ismael Start: 02-04-2022 Radiologic exam chest 2 views Bridgette sanford Start: 02-04-2022 Thyroid stimulating hormone measurement Kaleigh Guevara Start: 02-04-2022 Urinalysis, automated Kaleigh Guevara Start: 01-29-2022 Docrev cur meds by [facility] Bridgette mcarthur Start: 01-19-2022 Docrev cur meds by [facility] Bridgette mcarthur Start: 01-19-2022 Ketorolac tromethamine [...] Urine test visual color cmprsn meths [facility] [place] [employer] Work Phone: Start: 09-29-2021 Cystoscopy Rishi MARSHALL [...] Start: 10-05-2019 NOTIFY PHYSICIAN (SPECIFY) LUNDBERG KASSIDY NANCY Start: 10-05-2019 NURSING COMMUNICATION TOÑO [...] Rishi MARSHALL Esophagogastroduoden oscopy gastric outlet reduction Rsihi MARSHALL Plan of Treatment Date Care Activity Detail Author Start: 09-17-2032 DTaP,Tdap and Td Vaccines (10 - Td or Tdap) DTaP,Tdap and Td Vaccines (10 - Td or Tdap) [facility] Start: 04-09-2026 HIV screen HIV screen [place], [place] Comment on above: Postponed from 2012 (Unavailable) Start: 04-09-2026 HIV screening HIV screen [facility] Comment on above: Postponed from 2012 (Unavailable) Start: 11-10-2025 DTaP/Tdap/Td vaccine (5 - Td or Tdap) DTaP/Tdap/Td vaccine (5 - Td or Tdap) [facility] Start: 11-10-2025 DTaP/Tdap/Td vaccine (6 - Tdap) DTaP/Tdap/Td vaccine (6 - Tdap) [place], [place] Start: 07-07-2024 Adult BMI Screening Adult BMI Screening [facility] Start: 07-07-2024 Depression Screening Depression Screening [facility] Start: 07-07-2024 Tobacco Screening Tobacco Screening [facility] Start: 01-16-2024 [facility] Start: 12-29-2023 [facility] Start: 05-19-2023 [facility] Start: 02-06-2023 [facility] Start: 02-02-2023 Hospital admission [facility] Start: 01-28-2023 COVID-19 Vaccine () COVID-19 Vaccine () [facility] Start: 01-28-2023 Influenza vaccination [facility] Start: 08-09-2022 Lipid panel Lipid panel [facility] Start: 08-09-2022 Transferase alanine amino alt sgpt ALT [facility] Start: 08-09-2022 Transferase aspartate amino ast sgot AST [employer] Start: 06-21-2022 Iv infusion hydration initial 31 min-1 hour IV HYDRATION,INITIAL,31 MINUTES TO 1 HOUR [facility] Start: 06-17-2022 Basic metabolic panel calcium total Chem 8 [employer] Start: 06-15-2022 Brncdilat rspse spmtry pre&post-brncdilat admn Spirometry with bronchodilator [employer] Start: 05-30-2022 DEPRESSION ASSESSMENT DEPRESSION ASSESSMENT [facility] Start: 05-17-2022 Nitric oxide gas determination FENO [employer] Start: 04-03-2022 Depression Monitoring Depression Monitoring [facility] Start: 03-29-2022 Gonadotropin chorionic quantitative Beta HCG Quantitative [facility] Start: 03-17-2022 Gonadotropin chorionic quantitative Beta HCG Quantitative [facility] Start: 02-10-2022 [facility] Work Phone: Start: 02-04-2022 Assay of thyroid stimulating hormone tsh TSH [employer] Start: 02-04-2022 Blood count complete automated CBC PLATELET COUNT; AUTOMATED [facility] Start: 02-04-2022 Comprehensive metabolic panel Comp [facility] Start: 02-04-2022 Lipid panel Lipid panel [facility] Start: 02-04-2022 Urnls dip stick/tablet rgnt auto w/o microscopy UA [employer] Start: 02-04-2022 Chest PA & LAT [facility] Start: 01-19-2022 Therapeutic prophylactic/dx injection subq/im Sub Q/ IM injection [facility] Start: 12-28-2021 Influenza vaccination Flu vaccine (#1) [facility] Start: 12-23-2021 Skin test tuberculosis intradermal PPD (Skin test; tuberculosis, intradermal) [facility] Start: 07-29-2021 COVID-19 Vaccine (3 - Booster for Pfizer series) COVID-19 Vaccine (3 - Booster for Pfizer series) [facility] Start: 05-12-2021 COVID-19 Vaccine (5 - Booster) COVID-19 Vaccine (5 - Booster) [facility] Start: 03-03-2020 End: 03-03-2020 Office Visit 03/03/2020 Office Visit Urology Jose Lala MD [address], [address] [place] [address] [facility] Start: 02-07-2020 Chlamydia screen Chlamydia screen [place], [place] Start: 02-07-2020 Screening for Chlamydia trachomatis Chlamydia screen [facility] Start: 01-29-2020 Influenza vaccination [place] Start: 11-04-2019 Chlamydia screen Chlamydia screen [place] Start: 10-05-2019 End: 10-05-2019 Hospital Encounter [facility] Comment on above: EGD ESOPHAGOGASTRODUODENOSCOPY Start: 02-20-2019 End: 02-20-2019 Office Visit 02/20/2019 Office Visit 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, 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 - [employer] [address] [place] [id number] [facility] Start: 02-08-2019 End: 02-08-2019 Appointment 02/08/2019 Appointment Radiology [facility] Start: 01-28-2019 Influenza vaccination Flu vaccine (#1) [place], [place] Start: 2018 Cervical cancer screen Cervical cancer screen [place], [place] Start: 2018 PAP TESTING PAP TESTING [facility] Start: 2018 Screening for malignant neoplasm of cervix [facility] Start: 2016 Urine microalbumin profile DTAP,TDAP,TD (1 - Tdap) [facility] Start: 2015 Adult BMI Follow Up Plan Adult BMI Follow Up Plan [facility] Start: 2015 Hepatitis C screening Hepatitis C screen [facility] Start: 2015 HEPATITIS C SCREENING HEPATITIS C SCREENING [facility] Start: 2015 HIV SCREENING HIV SCREENING [facility] Start: 02-05-2014 Varicella vaccine (2 of 2 - 13+ 2-dose series) Varicella vaccine (2 of 2 - 13+ 2-dose series) [facility] Start: 2012 HPV vaccine (1 - Female 3-dose series) HPV vaccine (1 - Female 3-dose series) [place] Start: 2011 PEDS TO ADULT TRANSITION ANNUAL ASSESSMENT PEDS TO ADULT TRANSITION ANNUAL ASSESSMENT [facility] Start: 2010 Varicella Vaccine (1 of 2 - 13+ 2-dose series) Varicella Vaccine (1 of 2 - 13+ 2-dose series) [place] Start: 2009 PEDS TO ADULT TRANSITION INITIAL DISCUSSION PEDS TO ADULT TRANSITION INITIAL DISCUSSION [facility] Start: 2008 HPV vaccine (1 - 2-dose series) HPV vaccine (1 - 2-dose series) [facility] Start: 2006 HPV VACCINE (1 - 2-dose series) HPV VACCINE (1 - 2-dose series) [facility] Start: 2003 Pneumococcal 0-64 years Vaccine (1 - PCV) Pneumococcal 0-64 years Vaccine (1 - PCV) [facility] Start: 2003 Pneumococcal 0-64 years Vaccine (1 of 1 - PPSV23) Pneumococcal 0-64 years Vaccine (1 of 1 - PPSV23) [place] Start: 1998 Varicella vaccine (1 of 2 - 2-dose childhood series) Varicella vaccine (1 of 2 - 2-dose childhood series) [place] Start: 1997 COVID-19 VACCINE (#1) COVID-19 VACCINE (#1) [facility] Start: 1997 HEPATITIS B (1 of 3 - 3-dose series) HEPATITIS B (1 of 3 - 3-dose series) [facility] End: 01-15-2019 Bacteria identified Cx Nom (U) Urine Culture Microbiology Routine Dysuria Gross hematuria 1 Occurrences starting 01/15/2019 until 01/15/2019 [place] Comment on above: 1 Occurrences starting 01/15/2019 until 01/15/2019 End: 02-06-2019 C.trachomatis N.gonorrhoeae DNA, Urine C.trachomatis N.gonorrhoeae DNA, Urine Microbiology Routine Gross hematuria Urgency of urination 1 Occurrences starting 02/06/2019 until 02/06/2019 [place] Comment on above: 1 Occurrences starting 02/06/2019 until 02/06/2019 C.trachomatis N.gono rrhoeae DNA, Urine C.trachomatis N.gonorrhoeae DNA, Urine Microbiology Routine Gross hematuria Urgency of urination 02/06/2019 12:22 PM EDT [place] COVID-19 [place] End: 10-02-2019 COVID-19 COVID-19 Lab Routine One Time for 1 Occurrences starting 10/02/2019 until 10/02/2019 [place] Comment on above: One Time for 1 Occurrences starting 09/2019 until 10/02/2019 End: 03-07-2020 COVID-19 Ambulatory COVID-19 Ambulatory Lab Routine Acute frontal sinusitis, recurrence not specified 1 Occurrences starting 03/07/2020 until 03/07/2020 [place] Comment on above: 1 Occurrences starting 03/07/2020 until 03/07/2020 COVID-19 Ambulatory COVID-19 Amb ulatory Lab Routine Acute frontal sinusitis, recurrence not specified 03/07/2020 11:12 AM EDT [place] End: 03-16-2020 COVID-19, PCR COVID-19, PCR Lab Routine One Time for 1 Occurrences starting 03/16/2020 until 03/16/2020 [place] Comment on above: One Time for 1 Occurrences starting 02/27 until 03/16/2020 End: 03-03-2020 Culture, Urine Culture, Urine Microbiology Routine Gross hematuria 1 Occurrences starting 03/03/2020 until 03/03/2020 [place] Comment on above: 1 Occurrences starting 03/03/2020 until 03/03/2020 Culture, Urine [place] End: 06-30-2022 Culture, [facility] Work Phone: Comment on above: One Time for 1 Occurrences starting 05/2022 until 06/30/2022 H. PYLORI DETECTION [facility] Comment on above: Release Upon Ordering for 1 Occurrences starting 10/05/2019 Initiate Oxygen Therapy Protocol Initiate Oxygen Therapy Protocol Respiratory Care Routine Daily until discontinued starting 10/05/2019 [facility] Comment on above: Daily until discontinued starting 2019 Patient Education Depression, Ad ult (DC) [facility] DC Instructions [facility] Work Phone: Patient referral [facility] Work Phone: Phase I & II - metered glucose P hase I & II - metered glucose Point of Care Testing Routine As Needed until discontinued starting 10/05/2019 [facility] Comment on above: As Needed until discontinued starting End: 10-05-2019 POC Urine Qual POC Urine Qual Point of Care Testing Routine One Time for 1 Occurrences starting 10/05/2019 until 10/05/2019 [facility] ZOIE Comment on above: One Time for 1 Occurrences starting 12/2019 until 10/05/2019 Surgical Pathology Surgical Path ology Lab Routine Release Upon Ordering for 1 Occurrences starting 10/05/2019 [facility] ZOIE Comment on above: Release Upon Ordering for 1 Occurrences starting 10/05/2019 End: 02-06-2019 Urine culture clean catch Urine culture clean catch Microbiology Routine Gross hematuria Urgency of urination 1 Occurrences starting 02/06/2019 until 02/06/2019 [facility] ZOIE Comment on above: 1 Occurrences starting 02/06/2019 until 02/06/2019 Urine culture clean catch Urine culture clean catch Microbiology Routine Gross hematuria Urgency of urination 02/06/2019 12:22 PM EDT [facility] ZOIE Immunizations Immunization Date Immunization Notes Care Provider Fa francis 09-23-2022 RHO(D) immune globulin- IV or IM Matthew Lemus DO Work Phone: [facility] 09-17-2022 RHO(D) immune globulin- IV or IM Matthew Lemus DO Work Phone: [facility] 09-17-2022 tetanus toxoid, reduced diphtheria toxoid, and acellular pertussis vaccine, adsorbed Rishi MARSHALL [facility] 01-05-2022 [employer] Ortega [employer] 12-23-2021 [facility] [employer] 04-28-2021 influenza virus vaccine, unspecified formulation Rishi MARSHALL [facility] 04-28-2021 influenza, injectabl e, quadrivalent, preservative free Matthew Lemus DO Work Phone: [facility] 03-17-2021 COVID-19, Pfizer, 30mcg/0.3ml Bridgette Lewis [employer] 02-28-2021 SARS-CoV-2 (COVID-19 ) mRNA BNT-162b2 vax Rishi MARSHALL [facility] 02-27-2021 SARS-CoV-2 (COVID-19 ) Ad26 vaccine, recombinant Rishi MARSHALL [facility] 02-08-2021 SARS-CoV-2 (COVID-19 ) mRNA BNT-162b2 vax Rishi MARSHALL [facility] 01-28-2021 SARS-CoV-2 (COVID-19 ) Ad26 vaccine, recombinant Rishi MARSHALL [facility] 01-20-2021 COVID-19, Pfizer, 30mcg/0.3ml Bridgette Lewis [employer] 05-02-2018 influenza virus vaccine, unspecified formulation Liss[place] 01-27-2016 Influenza Vaccine, unspecified formulation [facility] [place] 01-[place]-2016 influenza virus vaccine, unspecified formulation Rishi MARSHALL [facility] 01-27-2016 influenza, seasonal, injectable, preservative free Matthew Lemus DO Work Phone: [facility] 12-29-2015 hepatitis B vaccine, adult dosage Rishimaricel MARSHALL [facility] 12-17-2015 hepatitis B vaccine, adult dosage Matthew Lemus DO Work Phone: [facility] 12-17-2015 hepatitis B vaccine, unspecified formulation [facility] [place] 11-26-2015 hepatitis B vaccine, adult dosage Rishimaricel MARSHALL [facility] 11-11-2015 diphtheria, tetanus toxoids and acellular pertussis vaccine [facility] 11-11-2015 tetanus toxoid, reduced diphtheria toxoid, and acellular pertussis vaccine, adsorbed Rishi MARSHALL [facility] 01-08-2014 tetanus toxoid, reduced diphtheria toxoid, and acellular pertussis vaccine, adsorbed Rishi MARSHALL [facility] 01-08-2014 varicella virus vaccine Rishi MARSHALL [facility] 10-17-2002 diphtheria, tetanus toxoids and acellular pertussis vaccine, unspecified formulation Mattehw Lemus DO Work Phone: [facility] 10-17-2002 DTaP, unspecified formulation Rishi MARSHALL [facility] 10-17-2002 measles, mumps and rubella virus vaccine [facility] 10-17-2002 poliovirus vaccine, inactivated [facility] [place] 10-17-2002 poliovirus vaccine, unspecified formulation Matthew Lemus DO Work Phone: [facility] 10-17-2002 tetanus toxoid, reduced diphtheria toxoid, and acellular pertussis vaccine, adsorbed Matthew Lemus DO Work Phone: [facility] 05-17-1998 haemophilus influenz ae type b vaccine, conjugate unspecified formulation Matthew Lemus DO Work Phone: [facility] 05-17-1998 Hib, unspecified [facility] [place] 05-17-1998 poliovirus vaccine, inactivated [facility] 03-27-1998 diphtheria, tetanus toxoids and acellular pertussis vaccine [facility] 03-27-1998 diphtheria, tetanus toxoids and acellular pertussis vaccine, unspecified formulation Matthew Lemus DO Work Phone: [facility] 03-27-1998 DTaP, unspecified formulation Rishi MARSHALL [facility] 03-27-1998 haemophilus influenz ae type b vaccine, conjugate unspecified formulation Matthew Lemus DO Work Phone: [facility] 03-27-1998 haemophilus influenz ae type b vaccine, HbOC conjugate Matthew Lemus DO Work Phone: [facility] 03-27-1998 Hib, unspecified [facility] [place] 03-27-1998 measles, mumps and rubella virus vaccine [facility] 03-27-1998 tetanus toxoid, reduced diphtheria toxoid, and acellular pertussis vaccine, adsorbed Matthew Lemus DO Work Phone: [facility] 1997 diphtheria, tetanus toxoids and acellular pertussis vaccine [facility], [place] 1997 diphtheria, tetanus toxoids and acellular pertussis vaccine, unspecified formulation Matthew Lemus DO Work Phone: [facility] 1997 DTaP, unspecified formulation Rishi ROLANDO [facility] 1997 haemophilus influenz ae type b conjugate and Hepatitis B vaccine Matthew Lemus DO Work Phone: [facility] 1997 haemophilus influenz ae type b vaccine, conjugate unspecified formulation Matthew Lemus DO Work Phone: [facility] 1997 hepatitis B vaccine, adult dosage Matthew Lemus Work Phone: [facility] Work Phone: 1997 hepatitis B vaccine, unspecified formulation [place], [place] 1997 Hib, [place] poliovirus vaccine, inactivated [place] 1997 tetanus toxoid, reduced diphtheria toxoid, and acellular pertussis vaccine, adsorbed Matthew Lemus DO Work Phone: [facility] 1997 trivalent poliovirus vaccine, live, oral Matthew Lemus DO Work Phone: [facility] 1997 diphtheria, tetanus toxoids and acellular pertussis vaccine [place], [place] 1997 diphtheria, tetanus toxoids and acellular pertussis vaccine, unspecified formulation Matthew Lemus DO Work Phone: [facility] 1997 DTaP, unspecified formulation Rishi MARSHALL [facility] 1997 haemophilus influenz ae type b vaccine, HbOC conjugate Matthew Lemus DO Work Phone: [facility] 1997 tetanus toxoid, reduced diphtheria toxoid, and acellular pertussis vaccine, adsorbed Matthew Lemus DO Work Phone: [facility] 1997 trivalent poliovirus vaccine, live, oral Matthew Lemus DO Work Phone: [facility] 1997 diphtheria, tetanus toxoids and acellular pertussis vaccine [facility] [place] 1997 diphtheria, tetanus toxoids and acellular pertussis vaccine, unspecified formulation Matthew Lemus DO Work Phone: [facility] 1997 DTaP, unspecified formulation Rishi MARSHALL [facility] 1997 haemophilus influenz ae type b vaccine, conjugate unspecified formulation Matthew Lemus DO Work Phone: [facility] 1997 Hib, unspecified [facility], [place] 1997 Hib, unspecified formulation Rishi MARSHALL [facility] 1997 poliovirus vaccine, inactivated [facility] [place] [facility] tetanus toxoid, reduced diphtheria toxoid, and acellular pertussis vaccine, adsorbed Matthew Lemus DO Work Phone: [facility] 1997 trivalent poliovirus vaccine, live, oral Matthew Lemus DO Work Phone: [facility] 1997 hepatitis B vaccine, adult dosage Matthew Lemus Work Phone: [facility] Work Phone: 1997 hepatitis B vaccine, pediatric or pediatric/adolescent dosage Rishi MARSHALL [facility] 1997 hepatitis B vaccine, unspecified formulation [facility], [place] 1997 hepatitis B vaccine, adult dosage Matthew Lemus Work Phone: [facility] Work Phone: 1997 hepatitis B vaccine, pediatric or pediatric/adolescent dosage Rishi MARSHALL [facility] [place] 1997 hepatitis B vaccine, unspecified formulation Lisseth Johnson [facility] [place], [place] Payers Date Payer Category Payer Worker's Compensation [id number] Unknown 2023 Unknown [id number] 2022 Medicaid [id number] 2015 Unknown BCBS [place] - [place] P PO xxxxxxxxxxxx 2015-Present [address] [place] [address] xxxxxxxxxxxx [id number]. [id number] 1997 Unknown [id number] 2.16.840.1.722838.3.579.2. 177 1997 Unknown [id number] 2.16.840.1.753137.3.579.2. 177 1997 Unknown [id number] 2.16.840.1.153950.3.579.2. 175 1997 Unknown [id number] 2.16.840.1.643817.3.579.2. 593 1997 Unknown [id number] 2.16.840.1.926577.3.579.2. 593 1997 Unknown [id number] 2.16.840.1.290067.3.579.2. 593 1997 Unknown [id number] 2.16.840.1.557256.3.579.2. 593 1997 Unknown [id number] 2.16.840.1.799479.3.579.2. 593 1997 Unknown [id number] 2.16.840.1.558736.3.579.2. 593 1997 Unknown [id number] 2.16.840.1.317641.3.579.2. 593 1997 Unknown [id number] 2.16.840.1.891655.3.579.2. 593 1997 Unknown [id number] 2.16.840.1.472515.3.579.2. 593 1997 Unknown [id number] 2.16.840.1.071190.3.579.2. 593 1997 Unknown [id number] 2.16.840.1.967025.3.579.2. 593 1997 Unknown [id number] 2.16.840.1.726845.3.579.2. 593 1997 Unknown [id number] 2.16.840.1.298748.3.579.2. 593 1997 Unknown [id number] 2.16.840.1.064745.3.579.2. 593 1997 Unknown [id number] 2.16.840.1.769626.3.579.2. 593 1997 Unknown [id number] 2.16.840.1.684883.3.579.2. 593 1997 Unknown [id number] 2.16.840.1.300870.3.579.2. 593 1997 Unknown [id number] 2.16.840.1.064618.3.579.2. 593 1997 Unknown [id number] 2.16.840.1.704872.3.579.2. 593 1997 Unknown [id number] 2.16.840.1.385775.3.579.2. 727 1997 Unknown [id number] 2.16.840.1.398221.3.579.2. 727 1997 Unknown [id number] 2.16.840.1.177492.3.579.2. 727 1997 Unknown [id number] 2.16.840.1.815204.3.579.2. 727 1997 Unknown [id number] 2.16.840.1.849358.3.579.2. 1286 1997 Unknown [id number] 2.16.840.1.684880.3.579.2. 173 1997 Unknown [id number] 2.16.840.1.369416.3.579.2. 173 1997 Unknown [id number] 2.16.840.1.035364.3.579.2. 173 1997 Unknown [id number] 2.16.840.1.092964.3.579.2. 173 1997 Unknown [id number] 2.16.840.1.437496.3.579.2. 173 1997 Unknown [id number] 2.16.840.1.584324.3.579.2. 173 1997 Unknown [id number] 2.16.840.1.605070.3.579.2. 1259 1997 Unknown [id number] 2.16.840.1.581342.3.579.2. 1259 1997 Unknown [id number] 2.16.840.1.154464.3.579.2. 1259 1997 Unknown [id number] 2.16.840.1.484244.3.579.2. 1259 1997 Unknown [id number] 2.16.840.1.069901.3.579.2. 1259 1997 Unknown [id number] 2.16.840.1.914271.3.579.2. 1259 1997 Unknown [id number] 2.16.840.1.722133.3.579.2. 1259 1997 Unknown [id number] 2.16.840.1.734238.3.579.2. 1259 1997 Unknown [id number] 2.16.840.1.292826.3.579.2. 1286 1997 Unknown [id number] 2.16.840.1.757541.3.579.2. 1286 1997 Unknown [id number] 2.16.840.1.736493.3.579.2. 1286 1997 Unknown [id number] 2.16.840.1.384810.3.579.2. 1286 1997 Unknown [id number] 2.16.840.1.742713.3.579.2. 1286 1997 Unknown [id number] 2.16.840.1.597720.3.579.2. 1286 1997 Unknown [id number] 2.16.840.1.390556.3.579.2. 1286 1997 Unknown [id number] 2.16.840.1.680892.3.579.2. 1286 1997 Unknown [id number] 2.16.840.1.269777.3.579.2. 1286 1997 Unknown [id number] 2.16.840.1.522951.3.579.2. 1286 1959 Self-pay [id number] 1959 Unknown [id number] 1959 Unknown [id number] 2.16.840.1.221035.3.441 1959 Unknown [id number] Unknown [id number] 2.16.840.1.912946.3.579.2. 531 Unknown [id number] 2.16.840.1.737293.3.579.2. 531 Unknown [id number] 2.16.840.1.466839.3.579.2. 531 Unknown [id number] 2.16.840.1.466684.3.579.2. 531 Unknown [id number] 2.16.840.1.445438.3.579.2. 531 Unknown [id number] 2.16.840.1.582402.3.579.2. 531 Social History Date Type Detail Facility Start: 02-06-2019 End: 05-19-2023 Tobacco smoking status NHIS Never smoker [place] Start: 02-06-2019 End: 04-26-2022 Alcohol intake No [place] Start: 1995 Sex Assigned At Not on file [place] Start: 07-31-2019 End: 10-05-2019 Alcohol intake Current non-drinker of alcohol (finding) [place] Exposure to SARS-CoV -2 (event) Unable to assess [place] Start: 03-03-2020 End: 11-10-2021 Tobacco use and exposure Never used [place] Start: 03-03-2020 End: 07-07-2023 Alcohol intake Current drinker of alcohol (finding) [place] Start: 03-03-2020 Alcohol Comment occasional [place] Start: 10-01-2021 End: 06-30-2022 Exposure to SARS-CoV-2 (event) Not sure [place] Tobacco smoking status Never [facility] Start: 04-03-2021 History SDOH Financial 5 [employer] Work Phone: Start: 04-03-2021 History SDOH Food Worry 1 [employer] Work Phone: Start: 04-03-2021 History 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 2 [employer] Work Phone: Start: *Tobacco [facility] Start: 1995 Sex Assigned At Female [facility] Tobacco smoking stat us DCIS Tobacco smoking consumption unknown [facility] Start: 11-10-2021 Tobacco smoking status NHIS Ex-smoker [facility] History of tobacco use Current smoker [facility] History of tobacco use Tobacco U se Types Packs/Day Years Used Date Smoking Tobacco: Former Vaping/E-cigarettes Smokeless Tobacco: Never [facility] Start: 04-26-2022 End: 07-07-2023 History of Social function [facility] Do you belong to any clubs or organizations such as presybeterian groups, unions, fraJun Group or athletic groups, or school groups? No [facility] Are you now , , , , never or living with a partner? Living with partner [facility] How often to you hav e a drink containing alcohol? Never [facility] How hard is it for y ou to pay for the very basics like food, housing, medical care, and heating Not very hard [facility] Do you feel stress - tense, restless, nervous, or anxious, or unable to sleep at night because your mind is troubled all the time - these days [OSQ] Rather much [facility] Start: 04-26-2022 Education 16 [facility] Start: 06-07-2018 Alcohol Comment occasionally [facility] Goals Date Patient Goal Desired Activity /State Functional Status Date Assessment Result Facility 05-10-2023 Functional Status N/A [facility] 02-06-2023 Functional status Patient at Baseline [facility] Work Phone: Mental Status Date Assessment Result Facility 02-06-2023 Cognitive function Cognitive Sta tus Patient at Baseline [facility] Work Phone: Clinical Notes 09-04-2021 to 07-07-2023 Matthew Lemus, DO - 07/07/2023 10:30 AM EST Note Date & Type Note Facility 07-07-2023 History of Present illness Narrative IM PROGRESS NOTE Patient - Lulú Gaitan Age - 28 y.o. - 1995 ASSESSMENT & PLAN 1. Bipolar 1 disorder ([facility]) -overall stable -undergoing medical regimen change. [...] disorder and anxiety and was admitted to [facility] for evaluation and adjustment of her [...] have CT scan and upper GI at [facility]. Both were termed normal except for changes related to her recent kidney stone and bladder manipulation. A review of systems was negative except for the following: General: sleep disturbance Psychiatric: anxiety, mood swings, and now seeing a new mental health provider (Nelly Pederson) out of [place]. Has recently had wholesale changes to her [...] Testing No results found. Matthew Lemus DO., [facility] Office: [phone] documented in this encounter [facility] 05-19-2023 History and physical note Note Date/Time May 19, 2023 1:38pm [facility] [address] [place] [address] Gastroenterology H&P Signed Patient: Lulú Gaitan MR#: [id number] : 1995 Acct:[id number] Age/Sex: 28 / F Adm Date: 3 Loc: Room: Type: [facility] Attending Dr: Fany Ceballos MD Copies [...] <Electronically signed by Fany Ceballos MD> 05/19/231337 [facility] Work Phone: 1(530) 557-912112-21-2023 [facility] Evaluation note* Encounter Date Diagnosis Assessment Notes Treatment Notes Treatment Clinical Notes Apr, Abnormal abdominal C T scan (ICD-10 - R93.5) Apr, Pyelonephritis of left kidney (ICD-10 - N12) [facility] Other 12-12-2023 Hospital Discharge instructions Patient Education [...] Follow these instructions at home: Medicines Take hjqa-lom-giamqlf and prescription medicines only as told by [...] or the blood stops without treatment. Take rlvr-rhx-uwphgaq and prescription medicines only as told by your health care provider. Drink enough fluid to keep your urine pale yellow. This information is not intended to replace advice given to you by your health care provider. Make sure you discuss any questions you have with your health care provider. Document Revised: 01/14/2021 Document Reviewed: 01/14/2021 Valentin Uzhun Patient Education 2022 [employer]. Follow Up Care 05/06/2023 07:59:50 With:ROLANDO DEVLIN, Rishi Ghosh, URL Address: [facility] [address] , [place] [address]- When:Within 4 Month(s) Comments:w/ELYSE [facility] 11-29-2023 Evaluation note* Encounter Date Diagnosis Assessment Notes Treatment Notes Treatment Clinical Notes Mar, Irritable bowel syndrome with constipation (ICD-10 - K58.1) Mar, Delayed gastric emptying (ICD-10 - K30) Mar, Vomiting (ICD-10 - R11.10) [facility] Other 09-15-2023 Evaluation note* Encounter Date Diagnosis [...] no improvement in 2 to 3 days [facility] Other 09-10-2023 Hospital Discharge instructions Additional Instructions Important Contact Information You can call [facility] Inpatient Behavioral Health at [phone] any time day or night if you [...] Text Line (available 20/12) text 4HOPE to [phone] [facility] Hope Line (available 8 a.m. Midnight) call [phone] ([phone]) [facility] Work Phone: 1(260) 332-900309-09-2023 Progress note Author Karri Kamara [facility] February 05, 2023 12:00pm Note Date/Time February 05, 2023 12:00pm [facility] [address] [place] [address] Psychiatry Progress Note Signed Patient: Lulú Gaitan MR#: [id number] : 1995 Acct:[id number] Age/Sex: 27 / F Adm Date: 3 Loc: Room: [address] [place] [address] Type : ADM IN Attending Dr: Karri [...] explained Documented By: Karri Kamara MD 02/05/23 115 Signed By: <Electronically signed by Karri Kamara MD> 02/05/23 1200 [facility] Work Phone: 1(474) 304-840309-08-2023 Progress note Author Karri Kamara [facility] February 04, 2023 1:43pm Note Date/Time February 04, 2023 1:44pm [facility] [address] [place] [address] Psychiatry Progress Note Signed Patient: Lulú Gaitan MR#: [id number] : 1995 Acct:[id number] Age/Sex: 27 / F Adm Date: 3 Loc: Room: [address] [place] [address] Type : ADM IN Attending Dr: Karri [...] explained Documented By: Karri Kamara MD 02/04/23 0890 Signed By: <Electronically signed by Karri Kamara MD> 02/04/23 1343 [facility] Work Phone: 1(270) 176-975009-07-2023 Miscellaneous Notes* Telephone Encounter - Viviana David [...] full name of hospital or facility)? [facility] If the patient had a gastric [...] G/J Tube?No Preferred phone number for contact: [phone] [facility] History and physical note Author Karri Kamara [facility] February 03, 2023 11:58am Note Date/Time February 03, 2023 11:58am [facility] [address] [place] [address] Psychiatry H&P Signed Patient: Lulú Gaitan MR#: [id number] : 1995 Acct:[id number] Age/Sex: 27 / F Adm Date: 3 Loc: Room: [address] [place] [address] Type: ADM IN Attending Dr: Karri Kamara [...] States she recently saw her psychiatrist at [facility] and was restarted on Latuda. 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 Relationships: Patient states [...] like current medical regimen is working [facility] Medical History (Updated 02/03/23 @ 10:00 [...] Cloudy A Urine pH 6.0 Ur Specific [place] 1.027 Urine Protein 30 H Urine Glucose [...] Color Urine Appearance Urine pH Ur Specific [place] Urine Protein Urine Glucose (UA) Urine Ketones [...] explained Documented By: Karri Kamara MD 02/03/23 0782 Signed By: <Electronically signed by Karri Kamara MD> 02/03/23 1158 [facility] Work Phone: 1(308) 478-758002-02-2023 History of Present illness Narrative* Jenna Elliott [...] 11:40 PM EST Nurse at bedside from 0704-5404. Nurse pal[pates pt's abdomen when pt feeling [...] at this time. [facility] Work Phone: 1(334) 780-710002-02-2023 Hospital Discharge instructions* Discharge Instructions* Jenna Elliott RN - 07/01/2022 12:27 AM EST OUTPATIENT DISCHARGE Dr. Miguel Aguilera [facility] Dr. Katelynn Leslie [facility] [address] [facility] [address] [place] or Sam Chyna Prakash [facility] [place] [address] [place] [address] ACTIVITY LIMITATIONS: ( x )Up [...] AND DELIVERY . documented in this encounterBON [facility] Phone: 1(734) 431-420409-14-2022 History and physical note Author Tae Natarajan [facility] February 10, 2022 5:06pm Note Date/Time February 10, 2022 5:06pm [facility] [address] [place] [address] Vascular Surgery H&P Signed Patient: Lulú Gaitan MR#: [id number] : 1995 Acct:[id number] Age/Sex: 26 / F Adm Date: 2 Loc: Room: Type: [facility] Attending Dr: Tae Natarajan MD Copies to: MD Matthew Hernandez,~ Date of Service: 02/10/2022 HPI History of Present Illness Chief complaint: Hematuria HPI: Ms. Gaitan is a 26 year old female being evaluated by Dr. Marshall for recurrent gross hematuria. Other evaluation including CT scan has been negative and Dr. Marshall requested diagnostic arteriogram and venogram. [facility] Vaccinated for COVID-19?: Yes Medical History [...] mg PO DAILY 02/10/22 [History Confirmed 02/10/22] ieanpsibsb-otfgfybkyxvnv-dgtrybpx 50 mg-300 mg-40 mg capsule (Fioricet) 1 [...] signed by MD Tae Natarajan> 02/10/22 1706 [facility] Work Phone: 1(179) 344-896708-29-2022 Evaluation note* Encounter Date Diagnosis Assessment Notes [...] ahead with arteriogram and venogram as requested. [employer] Other 05-15-2022 Hospital Discharge instructions* Instructions* Christine Vazquez PA-C - 10/11/2021 Take ibuprofen nevg-fbm-njuggsg 600 mg 3 times daily as needed for pain. Follow- up with your primary care provider and discuss additional testing if symptoms not improved. Return to the emergency room for any worsening symptoms. * Attachments The following attachments cannot be sent through Care Everywhere. * Pelvic Pain (Cambodian) [facility] Work Phone: 1(300) 883-968605-03-2022 Hospital Discharge instructions Patient Education 09/29/2021 13:37:25 [...] Follow these instructions at home: Medicines Take knss-jdq-fpvxezu and prescription medicines only as told by [...] or the blood stops without treatment. Take hogu-sko-jvhaysk and prescription medicines only as told by your health care provider. Drink enough fluid to keep your urine clear or pale yellow. This information is not intended to replace advice given to you by your health care provider. Make sure you discuss any questions you have with your health care provider. Document Released: 05/16/2006 Document Revised: 10/10/2019 Document Reviewed: 06/18/2017 Valentin Uzhun Patient Education 2019 [employer]. Follow Up Care 09/22/2021 14:13:42 With:ROLANDO DEVLIN, Rishi Ghosh, URL Address: [facility] [address] [place] [address]- Business (1) When: Unknown [facility] [place] 04-08-2022 Hospital Discharge instructions Patient Education 09/04/2021 [...] including vitamins, herbs, eye drops, creams, and tmiu-cqm-xrgqios medicines. Any problems you or family members [...] provider tells you to take them. ?Taking jvxk-jms-vkskitu medicines, vitamins, herbs, and supplements. Follow instructions [...] Follow these instructions at home: Medicines Take yshv-koo-rtjbrch and prescription medicines only as told by [...] With:ROLANDO DEVLIN, Rishi Augie, URL Address: [address] [place] [address]- When: Unknown Comments:will schedule Cysto [facility] Dina discharge summary Author Karri Kamara [facility] February 06, 2023 11:04am Note Date/Time February 06, 2023 11:04am [facility] [address] [place] [address] Discharge Summary Signed Patient: Lulú Gaitan MR#: [id number] : 1995 Acct:[id number] Age/Sex: 27 / F Adm Date: 3 Loc: Room: [address] [place] [address]: Karri Kamara MD Copies to: [...] States she recently saw her psychiatrist at [facility] and was restarted on Latuda. 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 Midnight) call [phone] ([phone]) Stand Alone Forms: Work/School Release Form Prescriptions: [...] Follow Up: [facility] [Other] (fax:[phone]) [facility] Line [Outside] Matthew Lemus DO [Primary Care Provider] - (Please contact for any medical needs or concerns) Documented By: Karri Kamara MD 02/06/23 1103 Signed By: <Electronically signed by Karri Kamara MD> 02/06/23 110 [facility] Work Phone: Evaluation + Plan note No data available for this section [facility] evaluation + Plan note Future Appointments Appointment Date:02/05/2022 09:45:00 AM Scheduled Provider:Rishi MARSHALL MD Location:[facility] Appointment Type:URO Office Visit [facility] Evaluation + Plan note Future Appointments Appointment Date:09/27/2023 10:15:00 AM Scheduled Provider:Rishi MARSHALL MD Location:[facility] Appointment Type:URO Office Visit [facility] Evaluation note* Diagnosis Lower abdominal pain- Primary Abdominal pain, other specified site documented in this encounter [employer] Work Phone: evalbtzyrb note* Diagnosis Onset Date Resolution Status Hematuria acute [facility] Work Phone: evaluation note* Diagnosis Hyperemesis- Primary Persistent vomiting Pelvic cramping Unspecified symptom associated with female genital organs documented in this encounter MARTHA RITCHIE [employer] Work Phone: evaluation note* Diagnosis Onset Date Resolution Status Bipolar 1 disorder acute Depression acute Major depressive disorder, recurrent acute Suicidal ideation acute [facility] Work Phone: Evaluation noteNo assessment information available [facility] Work Phone: Evaluation note* Diagnosis Bipolar 1 disorder ([facility])- Primary Oropharyngeal dysphagia Dysphagia, oropharyngeal phase Generalized anxiety disorder with panic attacks documented [facility] this encounter [facility] N[facility]ative - Reported* Type Description Date Medical History migraine headache Medical History endometriosis Medical History PCOS Medical History borderline personality disorder Medical History bipolar Medical History anxiety Medical History chronic depression Surgical History laparoscopy x3 female Surgical History umbilical hernia repair Hospitalization History 1 [facility] 2020 Hospitalization History as a child for stomach p ain [employer] Other Hisxjqc general Narrative - Reported* Type Description Date Medical History migraine headache Medical History endometriosis Medical History PCOS Medical History borderline personality disorder Medical History bipolar Medical History anxiety Medical History chronic depression Surgical History laparoscopy x3 female Surgical History umbilical hernia repair Hospitalization History 1 [facility] 2020 Hospitalization History as a child for stomach p ain Hospitalization History LATUDA REACTION 1 [facility] 02/02/2023 [facility] Other Hospital Discharge instructions Additional Instructions Hold Metformin for 2 days. No heavy lifting of anything over 5 pounds. No pushing or pulling. No vigorous activity. Remove dressing in 24 hours.[facility] Work Phone: Hospital Discharge instructions [...] problems. -Follow up with PCP. -Office number [phone]. [facility] Work Phone: Hospital Discharge instructions No data available for this section [facility] InstructionsNot on filedocumented in this encounter [facility] No data available for this section [facility] Assessments Diagnosis Gross hematuria Urgency of urination Diagnosis Gross hematuria Urgency of urination Diagnosis Gross hematuria Diagnosis Acute frontal sinusitis, recurrence not specified Diagnosis Viral URI with cough Acute upper respiratory infections of unspecified site Diagnosis Intractable nausea and vomiting Persistent vomiting Diagnosis Dysuria Gross hematuria Advance Directives No Advanced Directives Records FoundDocuments on File Type Date Recorded Patient Shoe Packer Expl anation Advance Directives and Living Will Power of Print Developer Documents on File Type Date Recorded Patient Shoe Packer Expl anation Advance Directives and Living Will Power of Print Developer Documents on File Type Date Recorded Patient Shoe Packer Expl anation ACP-Advance Directive ACP-Power of Print Developer Advance Directive Response Recorded Date/ Time Advance [...] Where can you learn more? Go to [email or web address] and sign in to your [employer] account. Enter J454 in the Search Health Information box to learn more about Upper GI Endoscopy: What to Expect at Home. . 4619-3045 [employer]. Care instructions adapted under license by [employer]. This care instruction is for use with your licensed healthcare professional. If you have questions about a medical condition or this instruction, always ask your healthcare professional. [employer] disclaims any warranty or liability for your use of this information. Content Version: 9.9.807175; Last Revised: July 19, 2012 Upper GI [...] Where can you learn more? Go to [email or web address] and sign in to your [employer] account. Enter J454 in the Search Health Information box to learn more about Upper GI Endoscopy: What to Expect at Home. . 5471-5917 [employer]. Care instructions adapted under license by [employer]. This care instruction is for use with your licensed healthcare professional. If you have questions about a medical condition or this instruction, always ask your healthcare professional. [employer] disclaims any warranty or liability for your use of this information. Content Version: 9.9.282860; Last Revised: July 19, 2012 Upper GI [...] Where can you learn more? Go to [email or web address] and sign in to your [employer] account. Enter J454 in the Search Health Information box to learn more about Upper GI Endoscopy: What to Expect at Home. . 2413-1083 [employer]. Care instructions adapted under license by [employer]. This care instruction is for use with your licensed healthcare professional. If you have questions about a medical condition or this instruction, always ask your healthcare professional. [employer] disclaims any warranty or liability for your use of this information. Content Version: 9.9.296010; Last Revised: July 19, 2012 Upper GI [...] Where can you learn more? Go to [email or web address] and sign in to your [employer] account. Enter J454 in the Search Health Information box to learn more about Upper GI Endoscopy: What to Expect at Home. . 3040-3090 [employer]. Care instructions adapted under license by [employer]. This care instruction is for use with your licensed healthcare professional. If you have questions about a medical condition or this instruction, always ask your healthcare professional. [employer] disclaims any warranty or liability for your use of this information. Content Version: 9.9.952749; Last Revised: July 19, 2012 Upper GI [...] Where can you learn more? Go to [email or web address] and sign in to your [employer]Soft account. Enter J454 in the Search Health Information box to learn more about Upper GI Endoscopy: What to Expect at Home. . 3737-0854 [employer]. Care instructions adapted under license by [employer]. This care instruction is for use with your licensed healthcare professional. If you have questions about a medical condition or this instruction, always ask your healthcare professional. [employer] disclaims any warranty or liability for your use of this information. Content Version: 9.9.362022; Last Revised: July 19, 2012 Upper GI [...] Where can you learn more? Go to [email or web address] and sign in to your [employer]Soft account. Enter J454 in the Search Health Information box to learn more about Upper GI Endoscopy: What to Expect at Home. . [employer], [employer]. Care instructions adapted under license by [employer]. This care instruction is for use with your licensed healthcare professional. If you have questions about a medical condition or this instruction, always ask your healthcare professional. [employer] disclaims any warranty or liability for your use of this information. Content Version: 9.9.579824; Last Revised: July 19, 2012 Upper GI [...] the day after the test, use an apul-yuc-rxzoiin spray to numb your throat. Follow-up care [...] Where can you learn more? Go to [email or web address] and sign in to your [employer]Soft account. Enter J454 in the Search Health Information box to learn more about Upper GI Endoscopy: What to Expect at Home. If you do not have an account, please click on the Sign Up Now link. Current as of: January 07, 2019Content Version: 12.4 4006-6436 [employer]. Care instructions adapted under license by [employer]. If you have questions about a medical condition or this instruction, always ask your healthcare professional. [employer] disclaims any warranty or liability for your use of this information. documented in this encounter* Attachments The following attachments cannot be sent through Care Everywhere. * URI (Upper Respiratory Infection): Viral (Cambodian) documented in this encounter Summary Purpose Family [...] SCAN W EJECTION FRACTION Toño Blanc MD [address] [place] [address] Chief Complaint and Reason for Visit Chief [...] TRANSORAL DIAGNOSTIC EGD ESOPHAGOGASTRODUODENOSCOPY Toño Blanc MD [address] [place] [address] [facility] Reason Comments Cough pt states onset last week. PT states she is taking Prednisone and Keflex for a sinus infection Status Reason Specialty Diagnoses / Procedures Referred By Contact Referred To Contact Not Required - [facility] Diagnoses Nausea with vomiting, unspecified Procedures HC NM HEPATOBILIARY IMAGING W PHARM Toño Blanc MD [address] [place] [address] [facility] Nuclear Medicine [address] [place] [address] Reason Comments Abdominal Cramping onset this am [...] section and content) DATE CREATED AUTHOR 10/15/2019 [facility] DATE CREATED AUTHOR AUTHOR'S ORGANIZ ATION 03/07/2020 [facility] DATE CREATED AUTHOR AUTHOR'S ORGANIZ ATION 07/27/2021 [facility] DATE CREATED AUTHOR AUTHOR'S ORGANIZ ATION 09/24/2022 [facility] DATE CREATED AUTHOR AUTHOR'S ORGANIZ ATION 02/12/2023 [facility] DATE CREATED AUTHOR AUTHOR'S ORGANIZ ATION 11/09/2023 [facility] DATE CREATED AUTHOR AUTHOR'S ORGANIZ ATION 01/12/2024 [facility] DATE CREATED AUTHOR AUTHOR'S ORGANIZ ATION 01/15/2024 [facility] DATE CREATED AUTHOR AUTHOR'S ORGANIZ ATION 01/17/2024 [facility] DATE CREATED AUTHOR AUTHOR'S ORGANIZ ATION 01/24/2024 [facility] DATE CREATED AUTHOR AUTHOR'S ORGANIZ ATION 01/25/2024 [facility] DATE CREATED AUTHOR AUTHOR'S ORGANIZ ATION 02/11/2024 [facility] Scheduled Active and [...] Kamara MD Admit Provider, Attending Provider Active Log Data Technician Relationship Specialty Start Date End Date Pamela[place] [phone] PCP - General Internal Medicine 10/11/21 Log Data Technician Relationship Specialty Start Date [place] [address] PCP - General Internal Medicine 10/11/21 Team Status: Inactive Member Role Status Dates Matthew Lemus DO Primary Care Provider Active Tae Natarajan MD Attending Provider Active Log Data Technician Relationship Specialty Start Date End Date Bridgette Lewis MD [address] [place] [address] PCP - General Internal Medicine 06/30/22 Log Data Technician Relationship Specialty Start Date End Date Agustin Ramos [address] [place] [id number] PCP - General 01/27/04 Team Status: Inactive Member Role Status Dates Matthew Lemus DO Primary Care Provider Active Fany Ceballos MD Attending Provider Active Log Data Technician Relationship Specialty Start Date End Date Matthew Lemus DO [address] [place] [address] PCP - General Internal Medicine 12/19/22 Team [...] prosecute any alcohol or drug abuse patient.[facility] FOR RECORDS PERTAINING TO PATIENTS [...] BE BASED ON THE PRIMARY CLINICAL RECORDS. [email or web address]. provides no warranty or guarantee of the accuracy or completeness of information in this document.
[2024-02-15 06:14] LABS: Basophils Absolute Auto 0.1 10^3/uL (0.0-0.1); Basophils Percent Auto 0.8 % (0.2-2.0); Eosinophils Absolute Auto 0.1 10^3/uL (0.0-0.7); Eosinophils Percent Auto 1.2 % (0.9-7.0); Hematocrit 37.6 % (36.0-48.0); Hemoglobin 12.8 g/dL (12.0-16.0); Immature Granulocytes Abs Auto 0.01 10^3/uL (0.00-0.03); Immature Granulocytes Pct Auto 0.2 % (0.0-0.5); Lymphocytes Absolute Auto 3.3 10^3/uL (1.2-3.8); Lymphocytes Percent Auto 51.5 % (20.5-60.0); Mean Corpuscular Hemoglobin 30.8 pg (26.7-34.0); Mean Corpuscular Volume 90.4 fL (81.0-99.0); Mean Platelet Volume 9.8 fL (9.5-13.5); Monocytes Absolute Auto 0.5 10^3/uL (0.3-0.8); Neutrophils Absolute Auto 2.5 10^3/uL (1.4-6.5); Neutrophils Percent Auto 39.3 % (43.0-75.0); Platelet Count 264 10^3/uL (150-450); Red Blood Count 4.16 10^6/uL (4.20-5.40); Red Cell Distribution Width 12.1 % (11.0-15.0); White Blood Count 6.5 10^3/uL (4.0-11.0)
[2024-02-15 06:34] LABS: HCG Quantitative <1 mIU/mL
[2024-02-15] MEDS: FAMOTIDINE/PF 20 MG/2 ML VIAL IV (07:02)
[2024-02-15] MEDS: SCOPOLAMINE 1 MG/3 DAYS TRANSDERM PATCH 1 PATCH TD (07:02)
[2024-02-15] MEDS: LACTATED RINGER'S SOLUTION 1,000 ML 50 ML IV ×2 (07:03→08:30)
[2024-02-15] MEDS: CEFAZOLIN SODIUM/DEXTROSE,ISO 1 GM/50 ML PREMIX IV (07:35)
--- NOTE | 2024-02-15 09:35 | PM.ONB ---
Brief Operative Note Date of procedure: 02/15/24 Pre-op diagnosis general: pelvic pain, aub, dysmenorrhea, dyspareunia Post-op diagnosis: same as pre-op Procedure: NAME OF PROCEDURE: ? Robotic assisted laparoscopic hysterectomy with cystoscopy, bilateral salpingectomy PROCEDURE:? The patient was taken back to the operating room, where she was prepped and draped in the normal sterile fashion after being placed in the dorsal lithotomy position.? Patient?s anesthesia was found to be adequate.? Surgical timeout was performed using two patient identifiers.? SCDs were on and in place.? Two grams of Ancef were given prior to the surgery.? Sterile Bennett catheter was inserted.? Standard size VCare was secured to the uterine cervix and the surgeon changed gloves.? Attention then was turned to the patient's abdomen, where a supraumbilical incision was then made.? Two S retractors were used to identify the patient?s fascia.? The fascia was then tented up using Prosper clamps and the patient?s fascia was incised sharply.? Patient?s abdomen was identified and entered bluntly.? The patient had the trocar placed and a pneumoperitoneum was obtained.? Approximately 4 liters of CO2 gas was used.? The camera was then placed through the trocar.? At this time, two robot trocars were placed in the patient?s left and right side, two hand widths from the midline, and this was placed under direct visualization.? The patient?s tube on the right side was tented up and the vessel sealer was then used to come across the mesosalpinx, and this was carried down to the uterine ovarian ligament.? The vessel sealer was carried down serially to the broad ligament, to the area of the bladder flap, which was then created anteriorly, and the uterine arteries were skeletonized and sealed using the vessel sealer.? The colpotomy was made using the monopolar cautery on cut, and this was carried circumferentially, posteriorly to anteriorly, until the uterus was amputated.? The specimen was then removed intact through the vagina, without difficulty.? The vagina was then closed using two running V-Loc in a non-lock fashion.? The robot was undocked.? The abdomen was desufflated.? The skin defects were closed using 4-0 Vicryl.? Please note, the fascia was closed using 0 Vicryl.? Sponge, lap and needle counts were correct x2.? Patient was taken to recovery room in stable condition.? The patient was awakened by Anesthesia first.? Patient tolerated procedure well.?? Anesthesia: ANGELA Surgeon: Ron Valenzuela Estimated blood loss (mL): 50 Pathology: other (uterus and tubes) Condition: stable Disposition: PACU Urinary Catheter Management Urinary Catheter Management Urethral: Cath placed during this visit: no
[2024-02-15] MEDS: HYDROMORPHONE HCL 0.5 MG/0.5 ML SYRINGE IV ×2 (10:20→10:32)
[2024-02-15] MEDS: LACTATED RINGER'S SOLUTION 1,000 ML 125 ML IV ×2 (11:00→19:29)
[2024-02-15] MEDS: CEFAZOLIN SODIUM/DEXTROSE,ISO 2 GM/50 ML PIGGYBACK IV ×2 (12:32→19:30)
[2024-02-15] MEDS: OXYCODONE HCL/ACETAMINOPHEN 5MG/325MG 1 TAB PO (12:32)
[2024-02-15] MEDS: KETOROLAC TROMETHAMINE 30 MG/ML VIAL IVP (15:54)
[2024-02-15] MEDS: OXYCODONE HCL/ACETAMINOPHEN 5MG/325MG 2 TAB PO (19:29)
[2024-02-15] MEDS: DOCUSATE SODIUM 100 MG CAPSULE PO (19:30)
[2024-02-15] MEDS: IBUPROFEN 400 MG TABLET 800 MG PO (21:50)
[2024-02-15] MEDS: SIMETHICONE 80 MG TAB.CHEW PO (21:50)
[2024-02-15] MEDS: BUSPIRONE HCL 15 MG TABLET PO (21:50)
[2024-02-15] MEDS: CLONAZEPAM 0.5 MG TABLET PO (21:50)
[2024-02-15] MEDS: OMEPRAZOLE 40 MG CAPSULE.DR PO (21:51)
[2024-02-16] VITALS: BP 93/55; PULSE 70; TEMP 37.1; O2SAT 94
[2024-02-16 04:00] VITALS: BP 100/55; PULSE 78; TEMP 36.9; O2SAT 96
[2024-02-16] MEDS: OXYCODONE HCL/ACETAMINOPHEN 5MG/325MG 2 TAB PO (04:37)
[2024-02-16] MEDS: ENOXAPARIN SODIUM 40 MG/0.4 ML SYRINGE SUBQ (06:07)
[2024-02-16 06:18] LABS: Basophils Percent Auto 0.3 % (0.2-2.0); Eosinophils Percent Auto 0.1 % (0.9-7.0); Hematocrit 35.7 % (36.0-48.0); Immature Granulocytes Abs Auto 0.04 10^3/uL (0.00-0.03); Immature Granulocytes Pct Auto 0.3 % (0.0-0.5); Lymphocytes Absolute Auto 1.7 10^3/uL (1.2-3.8); Lymphocytes Percent Auto 11.4 % (20.5-60.0); Mean Corpuscular HGB Conc 33.6 g/dL (29.9-35.2); Mean Corpuscular Hemoglobin 30.2 pg (26.7-34.0); Mean Corpuscular Volume 89.9 fL (81.0-99.0); Monocytes Absolute Auto 1.2 10^3/uL (0.3-0.8); Monocytes Percent Auto 7.9 % (1.7-12.0); Neutrophils Absolute Auto 11.8 10^3/uL (1.4-6.5); Platelet Count 216 10^3/uL (150-450); Red Blood Count 3.97 10^6/uL (4.20-5.40); Red Cell Distribution Width 12.2 % (11.0-15.0); White Blood Count 14.7 10^3/uL (4.0-11.0)
[2024-02-16 08:00] VITALS: BP 103/52; PULSE 85; TEMP 36.9; O2SAT 96
== END 2024-02-16 08:17 | disposition home or self-care (01) ==
LOC: SURGOUT 09:42 → MS 11:12
PROVIDERS: Anesthesiology; PCP Internal Medicine; Visit Provider Obstetrics & Gynecology
PROC: (CPT 840; principal; 2024-02-15 07:30)
DX: N92.0 Excessive and frequent menstruation with regular cycle (principal); R10.2 Pelvic and perineal pain; N94.6 Dysmenorrhea, unspecified; Z30.432 Encounter for removal of intrauterine contraceptive device; N94.10 Unspecified dyspareunia; N80.9 Endometriosis, unspecified; N93.9 Abnormal uterine and vaginal bleeding, unspecified; K21.9 Gastro-esophageal reflux disease without esophagitis
CPT/HCPCS: 58571; 36415; 84702; 85025; 88307; 94667; 96365; 96366; 96372; J0690; J1100; J1170; J1650; J1885; J2250; J2405; J2704; J2710; J3010

== ENCOUNTER 2024-02-20 20:26 | Emergency (ER) | payer BC, OTHER, SELFPAY ==
[2024-02-20 20:30] VITALS: BP 141/88; PULSE 84; TEMP 36.8; O2SAT 100; BMI 24.0
--- OUTSIDE RECORDS SUMMARY | 2024-02-20 20:35 | XMS_ITS | CCD ---
Author Organization [facility] Care Team Providers Care Relocation Director Name Role Phone Lisseth Johnson Primary Care Provider TOÑO BLANC Admitting Unavailable TOÑO BLANC Attending Unavailable LISSETH JOHNSON Primary Care Unavailable TOÑO BLANC Referring Unavailable LISSETH JOHNSON Primary Care Unavailable Lisseth Johnson Primary Care Provider [phone] BRIANA RUBIO Referring Unavailable LISSETH JOHNSON Primary Care Unavailable MATTHEW LEMUS Primary Care Physician Matthew Lemus Primary Care Provider [phone] Unavailable Primary Care Physician Unavailab le Unavailable Primary Care Physician Unavailab le Lisa Primary Care Physician Unavailab Bridgette Bennett Primary Care Physician Julianava ilBridgette Trimble Unavailable Unavailable Tae Natarajan Unavailable Bridgette Lewis Primary Care Physician Unava ilBridgette Trimble Primary Care Physician Unava ilKaleigh Stewart Primary Care Physician DO Matthew Arango Primary Care Provider MD Tae Natarajan Attending Provider [phone] Kaleigh Guevara Primary Care Physician Bridgette Medina Primary Care Physician Unava ilMaricel Canela Primary Care Physician Unavailab Maricel Crespo Primary Care Physician Unavailab le Bridgette Lewis Primary Care Physician Unava ilBridgette Trimble Primary Care Physician Unava ilBridgette Trimble Primary Care Physician Unava ilBridgette Trimble MD Primary Care Provider DR MATTHEW LEMUS Primary Care Unavailable DR RON WETZEL Admitting Unavailable BIANCA Horan, DR PEÑA Attending Unavailable BIANCA ., DR [...] Primary Care Unavailable BIANCA ., DR PEÑA Admsrinath Unavailable BIANCA ., DR PEÑA Attending Unavailable BIANCA ., DR PEÑA Consulting Unavailable MISC, DR PADRON Primary Care Unavailable ZIEBER, DR KAROL Ghosh Consulting Unavailable YUJULIEN, DR CASTRO Primary Care Unavailable BIANCA ., [...] Unavailable YUJULIEN, DR CASTRO Primary Care Unavailable BIANCA ., [...] Admitting Unavailable FABY ., AUDELIA Attending Unavailable YUJULIEN, DR CASTRO Primary Care Unavailable PAY ., DR THURMAN Consulting Unavailable JEFERSON, DR CASTRO Attending Unavailable JEFERSON, DR CASTRO Admitting Unavailable GRECHNY ., WM CORREA Consulting Unavaillucas AVILA, ISIDRO Consulting Unavailable GOVIND JOHNSTON Consulting Unavailable Agustin Ramos Primary Care Provider DO Matthew Lemus Primary Care Provider MD Matthew Leslie Emergency Provider [phone] MD Karri Kamara Admit Provider [phone] MD Karri Kamara Attending Provider Sarah Anderson Unavailable Fany Ceballos Unavailable DO Matthew Lemus Primary Care Provider [phone] MD Fany Ceballos Attending Provider Matthew Lemus DO Primary Care Provider [phone] Rishi MARSHALL Attending Unavailable BRIDGETTE LEWIS Primary Care Unavailable Rishi MARSHALL Attending Unavailable Rishi MARSHALL Attending Unavailable BRIDGETTE LEWIS Primary Care Unavailable Rishi MARSHALL Attending Unavailable Yuhas, DO Matthew Primary Care Provider Yuhas, DO Matthew Attending Provider SHIREEN CHAVEZ Referring Unavailable YUHAS, [...] Attending Unavailable Bianca, DO Ron Attending Provider JORGE LAMAS Attending Unavailable YUHAS, MATTHEW L Referring Unavailable YUHAS, MATTHEW L Primary Care Unavailable YUHAS, MATTHEW L Primary Care Unavailable PATRICIOIFTIKHAR Mendez M Attending Unavailable PATRICIOIFTIKHAR M Attending Unavailable PATRICIO, KHALID M Referring Unavailable YUHAS, MATTHEW L Primary Care Unavailable YUHAS, MATTHEW L Primary Care Unavailable GOMBAMBROSIO MIKHAILMELIZA Attending Unavailab le GOMBASH MIKHAIL, MELIZA Attending Unavailab le GOMBASH MIKHAIL, MELIZA Referring Unavailab le YUHAS, MATTHEW L Primary [...] Unavailable YUHAS, MATTHEW L Primary Care Unavailable Bianca, Ron Admitting Unavailable Bianca, Ron Attending Unavailable Bianca, Ron Admitting Unavailable Bianca, Ron Attending Unavailable Yuhas, Matthew Primary Care Unavailable Asaad, Imad Admitting Unavailable Asaad, Imad Attending Unavailable Karineoliva Matthew Primary Care Unavailable Matthew Lemus Attending Unavailable Matthew Lemus Admitting Unavailable Matthew Lemus Primary Care Unavailable Asaad, Imad Admitting Unavailable Asaad, Imad Attending Unavailable Allergies Allergy Classification Reported Allergen(s) Allergy Type Date of Onset Reaction(s) Facility (14 sources) bee venom Propensity to adverse reactions to drug 07-15-19 15 [place], [place] (17 sources) Erythromycin; Translations: [ERYTHROMYCIN] Drug Allergy 07-15-19 15 Itching, Dermatitis, Rash, Other (See Comments), pain [place], [place] (20 sources) Azithromycin; Translations: [azithromycin] Drug Allergy 06-07-19 19 Unknown (qualifier value), Swelling, Dermatitis, Rash, pain [facility] (6 sources) Bee pollen; Translations: [bee pollen] Drug Allergy Edema (finding) [facility] (6 sources) Bee/Wasp/Ant venom; Translations: [Bee Stings] Drug allergy Unknown (qualifier value) [facility] (14 sources) lamoTRIgine; Translations: [Lamictal] Drug Allergy [facility] (17 sources) lamoTRIgine; Translations: [lamotrigine] Drug Allergy 01-29-20 22 Swelling, Rash, Facial swelling (finding) [facility] (1 source) Azithromycin Drug Allergy [facility] (2 sources) bee venom Drug allergy (disorder) [facility] (1 source) lamoTRIgine Drug Allergy [facility] (12 sources) lurasidone; Translations: [lurasidone] Drug Allergy 02-03-20 23 Other (See Comments), Suicidal thoughts (finding) [facility] (1 source) Acetaminophen / HYDROcodone; Translations: [acetaminophen-h ydrocodone] Drug Allergy Hallucinations (finding) [facility] (1 source) Azithromycin; Translations: [Zithromax Z-Oscar] Drug Allergy [facility] Repository (4 sources) Acetaminophen; Translations: [acetaminophen] Drug Allergy 12-29-19 Hallucinating [facility] (7 sources) HYDROcodone; Translations: [HYDROCODONE] Drug Allergy 12-29-19 Hallucinating [facility] (4 sources) erythromycin base; Translations: [erythromycin base] Allergy to substance 12-29-19 Rash [facility] (3 sources) Acetaminophen / HYDROcodone; Translations: [HYDROCODONE-JUDIE TAMINOPHEN] Drug Allergy 11-19-19 [facility] (3 sources) BEE VENOM PROTEIN (HONEY BEE); Translations: [BEE VENOM PROTEIN (HONEY BEE)] Propensity to adverse reactions to drug (disorder) 07-15-19 [facility] (1 source) Azithromycin Drug Allergy 05-19-20 [facility] (1 source) lamoTRIgine Drug Allergy 05-19-20 [facility] (1 source) lurasidone Drug Allergy 05-19-20 [facility] Medications Current Medications Medication Drug Class(es) [...] 2 times daily 0 Active Drospirenone-Ethinyl Estradiol (8 sources) Progestin, Estrogen Start: 02-02-2023 take 1 [...] mcg fexofenadine hydrochloride 180 mg oral tablet (4 sources) Histamine-1 Receptor Antagonist Start: 05-18-2023 take 1 tablet by mouth once daily Fexofenadine (Shoa) 180 mg Tablet Active 180 MG PO [...] q24hr, # 21 tab(s), Refills(s) 0, Pharmacy: [facility]/pharmacy #[id number], 165, cm, 05/10/23 11:13:00 EST, Height/Length Dosing, 79, kg, 05/10/23 11:13:00 EST, Weight Dosing Start Date: 05/25/23 Status: Ordered 24 hr levomilnacipran 20 mg extended release oral capsule (16 sources) Serotonin and Norepinephrine Reuptake Inhibitor [...] 2023 12:00am May 18, 2023 2:58pm levonorgestrel 0.904255 mg/hr intrauterine system (1 source) Progestin, Progestin-containing [...] omeprazole 20 mg delayed release oral capsule (10 sources) Proton Pump Inhibitor Start: 02-02-2023 take [...] Status: Ordered take 1 capsule by mo [facility] once daily in the morning phentermine 37.5 MG capsule Take 37.5 mg by mouth every morning. 0 Active Plecanatide (Trulance) 3 mg Tablet (4 sources) Start: 05-18-2023 take 1 tablet by [...] Daily, # 30 cap(s), Refills(s) 0, Pharmacy: [facility]/pharmacy #[id number], 165, cm, 12/17/21 8:42:00 EDT, Height/Length [...] 1 capsule by mouth every four hours Cldgfxjlhm-Yigfhilotdszj-Gunc (Fioricet) 50-300-40 mg Capsule Discontinued 1 CAP [...] Active bisoprolol fumarate 5 mg oral tablet (7 sources) beta-Adrenergic Jade Start: 01-08-2021 End: 02-02-2023 take 5 mg by mouth once daily Bisoprolol Fumarate Discontinued 5 MG PO Daily January 08, 2021 12:00am February 02, 2023 9:41pm cefdinir 300 mg oral capsule (6 sources) Cephalosporin Antibacterial Start: 02-02-2023 End: 05-18-2023 [...] procedure, # 2 tab(s), Refills(s) 0, Pharmacy: [facility]/pharmacy #[id number], 165, cm, 12/17/21 8:42:00 EDT, Height/Length [...] desvenlafaxine 100 mg extended release oral tablet (20 sources) Serotonin and Norepinephrine Reuptake Inhibitor Start: [...] procedure., # 2 cap(s), Refills(s) 0, Pharmacy: [id number], 165, cm, 09/04/21 9:50:00 EDT, Height/Length [...] symptomatic., # 2 tab(s), Refills(s) 0, Pharmacy: [facility]/pharmacy #[id number], 165, cm, 12/17/21 8:42:00 EDT, Height/Length [...] Not-Taking lurasidone hydrochloride 60 mg oral tablet (13 sources) Atypical Antipsychotic Start: 02-02-2023 End: 02-05-2023 [...] paliperidone 6 mg extended release oral tablet (10 sources) Atypical Antipsychotic Start: 01-12-2021 End: 02-10-2022 [...] completed) pramipexole dihydrochloride 0.5 mg oral tablet (10 sources) Nonergot Dopamine Agonist Start: 01-08-2021 End: [...] at bedtime ziprasidone 60 mg oral capsule (16 sources) Atypical Antipsychotic Start: 06-02-2023 End: 07-07-2023 [...] 2023 3:02pm take 1 capsule by mo ut at bedtime Geodon 40 MG 1 capsule [...] Translations: [Bipolar disorder] Onset: 04-30-2015 04-30-2015 Chronic Nonspecific chest pain (4 sources) Other chest pain; Translations: [Chest pain, unspecified] Onset: 11-19-2023 Episodic Other aftercare (1 source) Other halfway (current) drug therapy; Translations: [OTH GROUP HOME [...] [Pleurisy] Onset: 11-19-2023 Episodic Residual codes; unclassified (7 sources) Hallucinations; Translations: [Hallucinations, unspecified] 01-08-2021 Episodic [...] of thorax, initial encounter] Onset: 01-23-2024 Episodic Suicide and intentional self-inflicted injury (8 sources) Suicidal thoughts; Translations: [Suicidal ideations] 01-08-2021 Episodic Unclassified (1 source) CONTACT W/AND (SUSP) [...] knee, initial encounter] Onset: 04-26-2022 04-26-2022 Episodic Mood disorders (1 source) Mood disorders Onset: 07-07-2023 07-07-2023 Nausea and vomiting (16 sources) Intractable nausea and vomiting; Translations: [Nausea] Onset: 06-17-2022 Episodic Other complications of (4 sources) Mild [...] WEEKS GESTATION OF ] Onset: 05-28-2022 Episodic Results Test Name Value Interpretation Reference Range Facility BASIC METABOLIC PANLon 01-22 Anion gap [Moles/Vol] 7 mmol/L Normal 5-15 [facility] Comment on above: Performed By: #### B KEITH, 3040-3, CBCA, LIVR #### [facility] ([id number]) [address] [place] [address] 07513 Calcium [Mass/Vol] 8.5 mg/dL Normal 8.5-10.5 [facility] Comment on above: Performed By: #### Elvis PARKER, 3040-3, CBCA, LIVR #### [facility] ([id number]) [address] [place] [address] 97435 Chloride [Moles/Vol] 108 mmol/L Normal 98-109 [facility] Comment on above: Performed By: #### Elvis PARKER, 3040-3, CBCA, LIVR #### [facility] ([id number]) [address] [place] [address] 91958 CO2 [Moles/Vol] 25 mmol/L Normal 22-32 [facility] Comment on above: Performed By: #### Elvis PARKER, 3040-3, CBCA, LIVR #### [facility] ([id number]) [address] [place] [address] 21743 Creatinine [Mass/Vol] 0.80 mg/dL Normal 0.40-1.00 [facility] Comment on above: Result Comment: METH OD TRACEABLE TO IDMS STANDARD Performed By: #### B KEITH, 3040-3, CBCA, LIVR #### [facility] ([id number]) [address] [place] [address] 68244 eGFR (CKD-EPI) NON-RACE DEPENDENT >90 Normal >59 [facility] Comment on above: Result Comment: Reported eGFR is based on the CKD-EPI 2020 equation that does not use a race coefficient. Performed By: #### B KEITH, 3040-3, CBCA, LIVR #### [facility] ([id number]) [address] [place] [address] 88106 Glucose [Mass/Vol] 100 mg/dL High 65-99 [facility] Comment on above: Performed By: #### Elvis PARKER, 3040-3, CBCA, LIVR #### [facility] ([id number]) [address] [place] [address] 34751 Potassium [Moles/Vol] 3.8 mmol/L Normal 3.5-5.0 [facility] Comment on above: Performed By: #### B KEITH, 3040-3, CBCA, LIVR #### [facility] ([id number]) [address] [place] [address] 49064 Sodium [Moles/Vol] 140 mmol/L Normal 134-146 [facility] Comment on above: Performed By: #### Elvis PARKER, 3040-3, CBCA, LIVR #### [facility] ([id number]) [address] [place] [address] 83075 Urea nitrogen [Mass/Vol] 12 mg/dL Normal 5-23 [facility] Comment on above: Performed By: #### B KEITH, 3040-3, CBCA, LIVR #### [facility] ([id number]) [address] [place] [address] CBC AND AUTO DIFFon 01-23-20 ABSOLUTE BASOPHIL 0.1 X10E9/L Normal 0.0-0.2 [facility] Comment on above: Performed By: #### C OSWALDO, CMP, 58659-8, 69276-9 #### [facility] ([id number]) [address] [place] [address] 48198 ABSOLUTE NEUTROPHIL 3.8 X10E9/L Normal 1.5-6.6 [facility] Comment on above: Performed By: #### C OSWALDO, CMP, 14031-3, 91557-7 #### [facility] ([id number]) [address] [place] [address] 91126 Basophils/100 WBC (Bld) 0.8 % Normal [facility] Comment on above: Performed By: #### Franco CHACON, CMP, 41171-1, 17186-8 #### [facility] ([id number]) [address] [place] [address] 42732 Eosinophils (Bld) [#/Vol] 0.1 10*3/uL Normal 0.0-0.4 [facility] Comment on above: Performed By: #### Franco CHACON, CMP, 85536-0, 76800-7 #### [facility] ([id number]) [address] [place] [address] 88939 Eosinophils/100 WBC (Bld) 0.9 % Normal [facility] Comment on above: Performed By: #### C BCA, CMP, 56982-4, 28505-2 #### [facility] ([id number]) [address] [place] [address] 53791 Erythrocyte distribution width (RBC) [Ratio] 13.2 % Normal 11.5-15.0 [facility] Comment on above: Performed By: #### Franco BCA, CMP, 17636-3, 54639-2 #### [facility] ([id number]) [address] [place] [address] 23824 Hematocrit (Bld) [Volume fraction] 38.9 % Normal 35-47 [facility] Comment on above: Performed By: #### C OSWALDO, CMP, 06970-0, 98335-7 #### [facility] ([id number]) [address] [place] [address] 83817 Hemoglobin (Bld) [Mass/Vol] 13.1 g/dL Normal 11.7-15.5 [facility] Comment on above: Performed By: #### C OSWALDO, CMP, 30577-4, 32379-2 #### [facility] ([id number]) [address] [place] [address] 21032 Lymphocytes (Bld) [#/Vol] 2.4 10*3/uL Normal 1.0-3.5 [facility] Comment on above: Performed By: #### C OSWALDO, CMP, 16055-0, 29621-0 #### [facility] ([id number]) [address] [place] [address] 57767 Lymphocytes/100 WBC (Bld) 34.9 % Normal [facility] Comment on above: Performed By: #### C OSWALDO, CMP, 77420-5, 79478-5 #### [facility] ([id number]) [address] [place] [address] 57364 MCH (RBC) [Entitic mass] 30.3 pg Normal 27-34 [facility] Comment on above: Performed By: #### C OSWALDO, CMP, 67909-3, 21482-9 #### [facility] ([id number]) [address] [place] [address] 03357 MCHC (RBC) [Mass/Vol] 33.6 g/dL Normal 32-36 [facility] Comment on above: Performed By: #### C BCA, CMP, 50160-0, 76946-5 #### [facility] ([id number]) [address] [place] [address] 01770 MCV (RBC) [Entitic vol] 90 fL Normal 80-100 [facility] Comment on above: Performed By: #### C BCA, CMP, 41826-5, 19131-8 #### [facility] ([id number]) [address] [place] [address] 52010 Monocytes (Bld) [#/Vol] 0.6 10*3/uL Normal 0-0.9 [facility] Comment on above: Performed By: #### C BCA, CMP, 19941-4, 34260-8 #### [facility] ([id number]) [address] [place] [address] 76742 Monocytes/100 WBC (Bld) 9.3 % Normal [facility] Comment on above: Performed By: #### C BCA, CMP, 20030-1, 90612-8 #### [facility] ([id number]) [address] [place] [address] 99937 Neutrophils/100 WBC (Bld) 54.1 % Normal [facility] Comment on above: Performed By: #### C BCA, CMP, 60432-2, 36901-5 #### [facility] ([id number]) [address] [place] [address] 72846 Platelet mean volume (Bld) [Entitic vol] 8.5 fL Normal 7-12 [facility] Comment on above: Performed By: #### C BCA, CMP, 48146-9, 56933-5 #### [facility] ([id number]) [address] [place] [address] 63488 Platelets (Bld) [#/Vol] 342 10*3/uL Normal 150-450 [facility] Comment on above: Performed By: #### C BCA, CMP, 32955-9, 32070-4 #### [facility] ([id number]) [address] [place] [address] 78561 RBC COUNT 4.31 X10E12/L Normal 3.80-5.20 [facility] Comment on above: Performed By: #### C OSWALDO, CMP, 39837-3, 50835-4 #### [facility] ([id number]) [address] [place] [address] 29873 WBC (Bld) [#/Vol] 7.0 10*3/uL Normal 4.0-11.0 [facility] Comment on above: Performed By: #### C OSWALDO, CMP, 08676-8, 51108-0 #### [facility] ([id number]) [address] [place] [address] 93709 HCG ( test) Ql (U)o n 01-23-2024 Beta HCG ( test) Ql (U) Negative Normal NEG [facility] Comment on above: Performed By: #### C OSWALDO, CMP, 30781-5, 47466-9 #### [facility] ([id number]) [address] [place] [address] 52259 LIPASEon 01-23-2024 Lipase [Catalytic activity/Vol] 40 U/L Normal 17-40 [facility] Comment on above: Performed By: #### B MP, 3040-3, CBCA, LIVR #### [facility] ([id number]) [address] [place] [address] 42417 LIVER PANELon 01-23-2024 Albumin [Mass/Vol] 4.1 g/dL Normal 3.2-5.3 [facility] Comment on above: Performed By: #### C OSWALDO, CMP, 91980-7, 32431-6 #### [facility] ([id number]) [address] [place] [address] ALP [Catalytic activity/Vol] 70 U/L Normal 39-130 [facility] Comment on above: Performed By: #### C BCA, CMP, 88908-5, 97045-6 #### [facility] ([id number]) [address] [place] [address] 75952 ALT [Catalytic activity/Vol] 15 U/L Normal 0-31 [facility] Comment on above: Performed By: #### C BCA, CMP, 82152-5, 32205-0 #### [facility] ([id number]) [address] [place] [address] 74097 AST [Catalytic activity/Vol] 15 U/L Normal 0-41 [facility] Comment on above: Performed By: #### C OSWALDO, CMP, 15625-1, 58494-4 #### [facility] ([id number]) [address] [place] [address] 56769 Bilirubin [Mass/Vol] 0.3 mg/dL Normal 0.3-1.2 [facility] Comment on above: Performed By: #### C BCA, CMP, 35583-7, 40570-3 #### [facility] ([id number]) [address] [place] [address] 55357 Bilirubin.indirect [Mass/Vol] mg/dL Normal 0.0-0.4 [facility] Comment on above: Performed By: #### C BCA, CMP, 78998-4, 06219-2 #### [facility] ([id number]) [address] [place] [address] 29380 Protein [Mass/Vol] 7.2 g/dL Normal 6.0-8.0 [facility] Comment on above: Performed By: #### C BCA, CMP, 20671-9, 78693-1 #### [facility] ([id number]) [address] [place] [address] [place] [address] URN MACROSCOPIC NURon 2023 BILIRUBIN NADYA Negative Normal NEG [facility] Comment on above: Performed By: #### C BCA, CMP, 98509-8, 59781-9 #### [facility] ([id number]) [address] [place] [address] 90375 BLOOD/HGB NADYA Negative Normal NEG [facility] Comment on above: Performed By: #### C BCA, CMP, 37627-5, 66895-8 #### [facility] ([id number]) [address] [place] [address] 86339 GLUCOSE NADYA Negative Normal NEG [facility] Comment on above: Performed By: #### C BCA, CMP, 14780-4, 60877-6 #### [facility] ([id number]) [address] [place] [address] 40756 KETONES NADYA Negative Normal NEG [facility] Comment on above: Performed By: #### C BCA, CMP, 20250-2, 28211-0 #### [facility] ([id number]) [address] [place] [address] 15514 LEUKOCYTE ESTERASE NADYA Negative Normal NEG [facility] Comment on above: Performed By: #### C BCA, CMP, 74735-4, 76330-7 #### [facility] ([id number]) [address] [place] [address] [place] [address] NITRITE NADYA Negative Normal NEG [facility] Comment on above: Performed By: #### C BCA, CMP, 19910-7, 61414-7 #### [facility] ([id number]) [address] [place] [address] 19618 PH NADYA 7.0 Normal 5.0-8.5 [facility] Comment on above: Performed By: #### C BCA, CMP, 56994-2, 91133-0 #### [facility] ([id number]) [address] [place] [address] PROTEIN NADYA Negative Normal NEG [facility] Comment on above: Performed By: #### C OSWALDO CMP, 62163-5, 19017-6 #### [facility] ([id number]) [address] [place] [address] 92190 SPECIFIC GRAVITY NADYA 1.025 Normal 1.003-1.035 [facility] Comment on above: Performed By: #### C BCA, CMP, 59763-7, 91062-7 #### [facility] ([id number]) [address] [place] [address] 46112 UROBILINOGEN NADYA 0.2 eu/dL Normal <1.1 [facility] Comment on above: Performed By: #### C BCA, CMP, 38197-7, 30121-8 #### [facility] ([id number]) [address] [place] [address] 99901 XR SPINE THORACIC 3 VWSon XR SPINE [...] Yoon MD on 01/23/2024 9:09 AM Normal [facility] No Panel InformationOrdered By: Ron Valenzuela on 01-16-2024 Miscellaneous Pathology Test See comment [facility] Comment on above: See report. Scanned copy available in EMR. Pathology Request for Lab Co rpon 01-16-2024 Pathology Request for Lab Neetu Normal [facility] Comment on above: Order Comment: PATHO LOGY EMB SPECIMEN Result Comment: See report. Scanned copy available in EMR. PERFORMED BY: [address] [place] [address] PATHOLOGIST OUTPATIENT FACILITY PHYSICAL THERAPIST MOISES VELASCO M.D. Performed By: #### P ATH TO [facility] #### [place] [address] [place] Cult,Urineon 01-13-2024 Cult,Urine Specimen Description .CLEAN CATCH URINE Special Requests Site: Urine Culture NO SIGNIFICANT GROWTH Report Status FINAL 01/13/2024 Normal [facility] Comment on above: Performed By: #### D DEBBI, CDP, CP, MG #### [address] [place] [id number] [employer]: Cholo Alicea MD CBC with Diffon 01-11-2024 Abs. Basophil 0.04 k/uL Normal 0.00-0.20 [facility] Comment on above: Performed By: #### D DEBBI, CDP, CP, MG #### [facility] [address] [place] [address] [place] [address] [employer]: Cholo Alicea MD Abs. Eosinophil <0.03 Normal 0.00-0.44 [facility] Comment on above: Performed By: #### D DEBBI, CDP, CP, MG #### [address] [place] [address] [employer]: Cholo Alicea MD Abs.Imm.Granulocyte 0.04 k/uL Normal 0.00-0.30 [facility] Comment on above: Performed By: #### D DEBBI, CDP, CP, MG #### [address] [place] [id number] [employer]: Cholo Alicea MD Abs.Neutrophil (Seg) 11.70 k/uL High 1.50-8.10 [facility] Comment on above: Performed By: #### D DEBBI, CDP, CP, MG #### [facility] [address] [place] [address] Dr[place], [place] [id number] [employer]: Cholo Alicea MD Basophils/100 WBC (Bld) 0 % Normal 0-2 [facility] Comment on above: Performed By: #### D DEBBI, CDP, CP, MG #### [address] [place], [place] 0209483 [employer]: Cholo Alicea MD Eosinophils/100 WBC (Bld) 0 % Low 1-4 [facility] Comment on above: Performed By: #### D DEBBI, CDP, CP, MG #### [address] [place], [place] [id number] [employer]: Cholo Alicea MD Erythrocyte distribution width (RBC) [Ratio] 12.1 % Normal 11.8-14.4 [facility] Comment on above: Performed By: #### D DEBBI, CDP, CP, MG #### [address] [place], [place] 8058483 [employer]: Cholo Alicea MD Hematocrit (Bld) [Volume fraction] 41.8 % Normal 36.3-47.1 [facility] Comment on above: Performed By: #### D DEBBI, CDP, CP, MG #### [address] [place], [place] 2097983 [employer]: Cholo Alicea MD Hemoglobin (Bld) [Mass/Vol] 15.2 g/dL High 11.9-15.1 [facility] Comment on above: Performed By: #### D DEBBI, CDP, CP, MG #### [address] [place] [address] [employer]: Cholo Alicea MD Immature granulocytes/100 WBC (Bld) 0 % Normal 0 [facility] Comment on above: Performed By: #### D DEBBI, CDP, CP, MG #### [address] [place], [facility]83 [employer]: Cholo Alicea MD Lymphocytes (Bld) [#/Vol] 0.77 10*3/uL Low 1.10-3.70 [facility] Comment on above: Performed By: #### D DEBBI, CDP, CP, MG #### [address] [place], [facility]83 [employer]: Cholo Alicea MD Lymphocytes/100 WBC (Bld) 6 % Low 24-43 [facility] Comment on above: Performed By: #### D DEBBI, CDP, CP, MG #### [address] [place], [facility]83 [employer]: Cholo Alicea MD MCH (RBC) [Entitic mass] 30.5 pg Normal 25.2-33.5 [facility] Comment on above: Performed By: #### D DEBBI, CDP, CP, MG #### [address] [place], [facility]83 [employer]: Cholo Alicea MD MCHC (RBC) [Mass/Vol] 36.4 g/dL High 28.4-34.8 [facility] Comment on above: Performed By: #### D DEBBI, CDP, CP, MG #### [address] [place], [facility]83 [employer]: Cholo Alicea MD MCV (RBC) [Entitic vol] 83.8 fL Normal 82.6-102.9 [facility] Comment on above: Performed By: #### D DEBBI, CDP, CP, MG #### [address] [place] [address] [employer]: Cholo Alicea MD Monocytes (Bld) [#/Vol] 0.13 10*3/uL Normal 0.10-1.20 [facility] Comment on above: Performed By: #### D DEBBI, CDP, CP, MG #### [facility] [address] [place], [place] [id number] [employer]: Cholo Alicea MD Monocytes/100 WBC (Bld) 1 % Low 3-12 [facility] Comment on above: Performed By: #### D DEBBI, CDP, CP, MG #### [facility] [address] [place], [place] [address] [employer]: Cholo Alicea MD Neutrophil (Seg) 92 % High 36-65 [facility] Comment on above: Performed By: #### D DEBBI, CDP, CP, MG #### [facility] [address] [place], [facility]83 [employer]: Cholo Alicea MD NRBC Automated 0.0 per 100 WBC Normal 0.0 [facility] Comment on above: Performed By: #### D DEBBI, CDP, CP, MG #### [address] [place], [facility]83 [employer]: Cholo Alicea MD Platelet mean volume (Bld) [Entitic vol] 10.3 fL Normal 8.1-13.5 [facility] Comment on above: Performed By: #### D DEBBI, CDP, CP, MG #### [address] [place], [facility]83 [employer]: Cholo Alicea MD Platelets (Bld) [#/Vol] 377 10*3/uL Normal 138-453 [facility] Comment on above: Performed By: #### D DEBBI, CDP, CP, MG #### [address] [place], [facility]83 [employer]: Cholo Alicea MD RBC (Bld) [#/Vol] 4.99 10*6/uL Normal 3.95-5.11 [facility] Comment on above: Performed By: #### D DEBBI, CDP, CP, MG #### [facility] [address] [place] [address] [employer]: Cholo Alicea MD WBC (Bld) [#/Vol] 12.7 10*3/uL High 3.5-11.3 [facility] Comment on above: Performed By: #### D DEBBI, CDP, CP, MG #### [facility] [address] [place], [place] 0623083 [employer]: Cholo Alicea MD CT ABDOMEN PELVIS WO [...] Raulito Hinds MD 01/11/24 Final result Normal [facility] Comp Metabolic Profon 2023 Albumin [Mass/Vol] 5.0 g/dL Normal 3.5-5.2 [facility] Comment on above: Performed By: #### D DEBBI, CDP, CP, MG #### [facility] [address] [place], [place] [id number] [employer]: Cholo Alicea MD Albumin/Glob Ratio 1.4 Normal 1.0-2.5 [facility] Comment on above: Performed By: #### D DEBBI, CDP, CP, MG #### [facility] [address] [place], [place] 0264983 [employer]: Cholo Alicea MD Alkaline Phos 92 U/L Normal 35-104 [facility] Comment on above: Performed By: #### D DEBBI, CDP, CP, MG #### [facility] [address] [place], [place] 1922083 [employer]: Cholo Alicea MD ALT [Catalytic activity/Vol] 11 U/L Normal 5-33 [facility] Comment on above: Performed By: #### D DEBBI, CDP, CP, MG #### [facility] [address] [place], [place] 7037583 [employer]: Cholo Alicea MD Anion gap [Moles/Vol] 17 mmol/L Normal 9-17 [facility] Comment on above: Performed By: #### D DEBBI, CDP, CP, MG #### [facility] [address] [place] [address] [place] [address] [employer]: Cholo Alicea MD AST [Catalytic activity/Vol] 18 U/L Normal <32 [facility] Comment on above: Performed By: #### D DEBBI, CDP, CP, MG #### [facility] [address] [place] [address] Dr. [place], [place] 9574783 [employer]: Cholo Alicea MD Bilirubin [Mass/Vol] 0.6 mg/dL Normal 0.3-1.2 [facility] Comment on above: Performed By: #### D DEBBI, CDP, CP, MG #### [facility] [address] [place] [address] [employer]: Cholo Alicea MD BUN/CRE Ratio 10 Normal 9-20 [facility] Comment on above: Performed By: #### D DEBBI, CDP, CP, MG #### [facility] [address] [place] [address] [employer]: Cholo Alicea MD Calcium [Mass/Vol] 10.2 mg/dL Normal 8.6-10.4 [facility] Comment on above: Performed By: #### D DEBBI, CDP, CP, MG #### [facility] [address] [place] [address] [employer]: Cholo Alicea MD Chloride [Moles/Vol] 102 mmol/L Normal 98-107 [facility] Comment on above: Performed By: #### D DEBBI, CDP, CP, MG #### [facility] [address] [place] [address] [employer]: Cholo Alicea MD CO2 [Moles/Vol] 20 mmol/L Normal 20-31 [facility] Comment on above: Performed By: #### D DEBBI, CDP, CP, MG #### [facility] [place] [address] [place] [address] [employer]: Cholo Alicea MD Creatinine [Mass/Vol] 0.9 mg/dL Normal 0.5-0.9 [facility] Comment on above: Performed By: #### D DEBBI, CDP, CP, MG #### [facility] [address] [place] [address] [employer]: Cholo Alicea MD GFR/1.73 sq M.predicted among non-blacks MDRD (S/P/Bld) [Vol rate/Area] mL/min/{1.73_m2} Normal >60 [facility] Comment on above: Result Comment: These [...] #### D DEBBI, CDP, CP, MG #### [facility] [address] [place] [address] [place] [address] [employer]: Cholo Alicea MD Glucose [Mass/Vol] 103 mg/dL High 70-99 [facility] Comment on above: Performed By: #### D DEBBI, CDP, CP, MG #### [facility] [address] [place] [address] Dr. [place], [place] 1842583 [employer]: Cholo Alicea MD Potassium [Moles/Vol] 3.9 mmol/L Normal 3.7-5.3 [facility] Comment on above: Performed By: #### D DEBBI, CDP, CP, MG #### [address] [place] [address] [employer]: Cholo Alicea MD Protein [Mass/Vol] 8.5 g/dL High 6.4-8.3 [facility] Comment on above: Performed By: #### D DEBBI, CDP, CP, MG #### [address] [place] [address] [employer]: Cholo Alicea MD Sodium [Moles/Vol] 139 mmol/L Normal 135-144 [facility] Comment on above: Performed By: #### D DEBBI, CDP, CP, MG #### [address] [place] [address] [employer]: Cholo Alicea MD Urea nitrogen [Mass/Vol] 9 mg/dL Normal 6-20 [facility] Comment on above: Performed By: #### D DEBBI, CDP, CP, MG #### [address] [place] [address] [employer]: Cholo Alicea MD HCG, ,Urineon 01-10 Beta HCG ( test) Ql (U) Negative Normal NEG [facility] Comment on above: Result Comment: Spec imens with hCG levels near the threshold of the test (25 mIU/mL) may give a negative or indeterminate result. In such cases, another test should be performed with a new specimen in 48-72 hours. If early is suspected clinically in this setting, correlation with quantitative serum b-hCG level is suggested. [facility] has confirmed the use of plasma for this test. This has not been cleared or approved by the U.[place]. Food and Drug Administration. The FDA has determined that such clearance is not necessary. Performed By: #### D DEBBI, CDP, CP, MG #### [address] [place] [address] [employer]: Cholo Alicea MD Magnesiumon 01-11-2024 Magnesium [Mass/Vol] 1.9 mg/dL Normal 1.6-2.6 [facility] Comment on above: Performed By: #### D DEBBI, CDP, CP, MG #### [address] [place] [address] [employer]: Cholo Alicea MD TSH w/reflex to FT4on 2023 Thyroid Stim. Horm. 1.84 uIU/mL Normal 0.30-5.00 [facility] Comment on above: Performed By: #### T SHX #### [address] [place] [address] [employer]: Cholo Alicea MD Urinalysis w/ Microon 2023 Bacteria TRACE Abnormal NONE [facility] Comment on above: Performed By: #### D DEBBI, CDP, CP, MG #### [address] [place] [address] [employer]: Cholo Alicea MD Bilirubin, SemiQt,Ur Negative Normal NEG [facility] Comment on above: Performed By: #### D DEBBI, CDP, CP, MG #### [address] [place], [place] [phone] [employer]: Cholo Alicea MD Blood, Urine Negative Normal NEG [facility] Comment on above: Performed By: #### D DEBBI, CDP, CP, MG #### [facility] [address] [place] [address] Dr. [place], [place] 1347183 [employer]: Cholo Alicea MD Clarity (U) Clear Normal CLEAR [facility] Comment on above: Performed By: #### D DEBBI, CDP, CP, MG #### [facility] [address] [place] [address] Dr. [place], [place] [phone] [employer]: Cholo Alicea MD Color (U) Yellow Normal YEL [facility] Comment on above: Performed By: #### D DEBBI, CDP, CP, MG #### [address] [place], [place] 2160983 [employer]: Cholo Alicea MD Epithelial cells LM Ql (Urine sed) 10 TO 20 Normal 0-25 [facility] Comment on above: Performed By: #### D DEBBI, CDP, CP, MG #### [facility] [address] [place] [address] Dr. [place], [place] [id number] [employer]: Cholo Alicea MD Glucose Ql (U) Negative Normal NEG [facility] Comment on above: Performed By: #### D DEBBI, CDP, CP, MG #### [facility] [address] [place] [address] Dr. [place], [place] 2121583 [employer]: Cholo Alicea MD Ketones Ql (U) Negative Normal NEG [facility] Comment on above: Performed By: #### D DEBBI, CDP, CP, MG #### [address] [place] [address] [employer]: Cholo Alicea MD Leukocyte esterase Test strip Ql (U) TRACE Abnormal NEG [facility] Comment on above: Performed By: #### D DEBBI, CDP, CP, MG #### [facility] [address] [place], [place] 8697483 [employer]: Cholo Alicea MD Nitrite,Ur Negative Normal NEG [facility] Comment on above: Performed By: #### D DEBBI, CDP, CP, MG #### [facility] [address] [place] [address] Dr. [place], [place] 7501983 [employer]: Cholo Alicea MD PH,Ur 8.0 Normal 5.0-9.0 [facility] Comment on above: Performed By: #### D DEBBI, CDP, CP, MG #### [address] [place], [place] 4202783 [employer]: Cholo Alicea MD Protein Ql (U) Negative Normal NEG [facility] Comment on above: Performed By: #### D DEBBI, CDP, CP, MG #### [address] [place], [place] 4470083 [employer]: Cholo Alicea MD Spec. Barnes,Ur 1.015 Normal 1.010-1.020 [facility] Comment on above: Performed By: #### D DEBBI, CDP, CP, MG #### [address] [place] [address] [employer]: Cholo Alicea MD Urine RBC's None Normal 0-2 [facility] Comment on above: Performed By: #### D DEBBI, CDP, CP, MG #### [facility] [address] [place] [address] [place] [address] [employer]: Cholo Alicea MD Urine WBC's 5 TO 10 Normal 0-5 [facility] Comment on above: Performed By: #### D DEBBI, CDP, CP, MG #### [facility] [address] [place] [address] [place] [address] [employer]: Cholo Alicea MD Urobilinogen,Ur Normal Normal 0.0-1.0 [facility] Comment on above: Performed By: #### D DEBBI, CDP, CP, MG #### [facility] [address] [place] [address] [employer]: Cholo Alicea MD URINE CULTUREon 01-10-2024 Bacteria [...] F TRIMETH/SULFAMETHOXA ZOLE R >=16/304 F [facility] Comment on above: Performed By: #### 6 30-4 #### [facility] ([id number]) [address] [place] [address], [address] [place] [address] CBC with Diffon 01-07-2024 Abs. Basophil 0.06 k/uL Normal 0.00-0.20 [facility] Comment on above: Performed By: #### C P, TATA DAHL, TROPI #### [facility] [address] [place] [address] [employer]: Cholo Alicea MD Abs.Imm.Granulocyte <0.03 Normal 0.00-0.30 [facility] Comment on above: Performed By: #### C P, TATA DAHL, TROPI #### [facility] [address] [place] [address] [employer]: Cholo Alicea MD Abs.Neutrophil (Seg) 3.71 k/uL Normal 1.50-8.10 [facility] Comment on above: Performed By: #### C P, DIMETATA, TROPI #### [facility] [address] [place] [address] [place] [address] [employer]: Cholo Alicea MD Basophils/100 WBC (Bld) 1 % Normal 0-2 [facility] Comment on above: Performed By: #### C P, DIME, CDP, TROPI #### [address] [place], [place] [address] [employer]: Cholo Alicea MD Eosinophils (Bld) [#/Vol] 0.06 10*3/uL Normal 0.00-0.44 [facility] Comment on above: Performed By: #### C P, DIME, CDP, TROPI #### [address] [place] [id number] [employer]: Cholo Alicea MD Eosinophils/100 WBC (Bld) 1 % Normal 1-4 [facility] Comment on above: Performed By: #### C P, DIME, CDP, TROPI #### [address] [place], [facility]83 [employer]: Cholo Alicea MD Erythrocyte distribution width (RBC) [Ratio] 12.3 % Normal 11.8-14.4 [facility] Comment on above: Performed By: #### C P, DIME, CDP, TROPI #### [address] [place], [facility]83 [employer]: Cholo Alicea MD Hematocrit (Bld) [Volume fraction] 40.3 % Normal 36.3-47.1 [facility] Comment on above: Performed By: #### C P, DIME, CDP, TROPI #### [address] [place] [id number] [employer]: Cholo Alicea MD Hemoglobin (Bld) [Mass/Vol] 14.0 g/dL Normal 11.9-15.1 [facility] Comment on above: Performed By: #### C P, DIME, CDP, TROPI #### [facility] [address] [place], [place] [address] [employer]: Cholo Alicea MD Immature granulocytes/100 WBC (Bld) 0 % Normal 0 [facility] Comment on above: Performed By: #### C P, DIME, CDP, TROPI #### [facility] [address] [place], [place] [address] [employer]: Cholo Alicea MD Lymphocytes (Bld) [#/Vol] 3.59 10*3/uL Normal 1.10-3.70 [facility] Comment on above: Performed By: #### C P, DIME, CDP, TROPI #### [address] [place] [address] [employer]: Cholo Alicea MD Lymphocytes/100 WBC (Bld) 44 % High 24-43 [facility] Comment on above: Performed By: #### C P, DIME, CDP, TROPI #### [address] [place], [place] [address] [employer]: Cholo Alicea MD MCH (RBC) [Entitic mass] 30.4 pg Normal 25.2-33.5 [facility] Comment on above: Performed By: #### C P, DIME, CDP, TROPI #### [address] [place], [place] [address] [employer]: Cholo Alicea MD MCHC (RBC) [Mass/Vol] 34.7 g/dL Normal 28.4-34.8 [facility] Comment on above: Performed By: #### C P, DIME, CDP, TROPI #### [address] [place], [facility]83 [employer]: Cholo Alicea MD MCV (RBC) [Entitic vol] 87.4 fL Normal 82.6-102.9 [facility] Comment on above: Performed By: #### C P, DIME, CDP, TROPI #### [facility] [address] [place], [place] 9348183 [employer]: Cholo Alicea MD Monocytes (Bld) [#/Vol] 0.67 10*3/uL Normal 0.10-1.20 [facility] Comment on above: Performed By: #### C P, DIME, CDP, TROPI #### [facility] [address] [place], [facility]83 [employer]: Cholo Alicea MD Monocytes/100 WBC (Bld) 8 % Normal 3-12 [facility] Comment on above: Performed By: #### C P, DIME, CDP, TROPI #### [address] [place], [facility]83 [employer]: Cholo Alicea MD Neutrophil (Seg) 46 % Normal 36-65 [facility] Comment on above: Performed By: #### C P, DIME, CDP, TROPI #### [address] [place], [facility]83 [employer]: Cholo Alicea MD NRBC Automated 0.0 per 100 WBC Normal 0.0 [facility] Comment on above: Performed By: #### C P, DIME, CDP, TROPI #### [address] [place], [facility]83 [employer]: Cholo Alicea MD Platelet mean volume (Bld) [Entitic vol] 10.3 fL Normal 8.1-13.5 [facility] Comment on above: Performed By: #### C P, DIME, CDP, TROPI #### [address] [place] [address] [employer]: Cholo Alicea MD Platelets (Bld) [#/Vol] 292 10*3/uL Normal 138-453 [facility] Comment on above: Performed By: #### C P, DIME, CDP, TROPI #### [facility] [address] [place], [place] 2869483 [employer]: Cholo Alicea MD RBC (Bld) [#/Vol] 4.61 10*6/uL Normal 3.95-5.11 [facility] Comment on above: Performed By: #### C P, DIME, CDP, TROPI #### [facility] [address] [place], [place] 4676183 [employer]: Cholo Alicea MD WBC (Bld) [#/Vol] 8.1 10*3/uL Normal 3.5-11.3 [facility] Comment on above: Performed By: #### C P, DIME, CDP, TROPI #### [address] [place], [place] 7174383 [employer]: Cholo Alicea MD Comp Metabolic Profon 2023 Albumin [Mass/Vol] 4.6 g/dL Normal 3.5-5.2 [facility] Comment on above: Performed By: #### C P, DIME, CDP, TROPI #### [address] [place], [place] 1540083 [employer]: Cholo Alicea MD Albumin/Glob Ratio 1.6 Normal 1.0-2.5 [facility] Comment on above: Performed By: #### C P, DIME, CDP, TROPI #### [facility] [address] [place], [place] 9961683 [employer]: Cholo Alicea MD Alkaline Phos 73 U/L Normal 35-104 [facility] Comment on above: Performed By: #### C P, DIME, CDP, TROPI #### [facility] [place] [address] [place] [address] [employer]: Cholo Alicea MD ALT [Catalytic activity/Vol] 9 U/L Normal 5-33 [facility] Comment on above: Performed By: #### C P, DIME, CDP, TROPI #### [facility] [address] [place], [place] 3005983 [employer]: Cholo Alicea MD Anion gap [Moles/Vol] 10 mmol/L Normal 9-17 [facility] Comment on above: Performed By: #### C P, DIME, CDP, TROPI #### [facility] [address] [place], [place] 9668483 [employer]: Cholo Alicea MD AST [Catalytic activity/Vol] 14 U/L Normal <32 [facility] Comment on above: Performed By: #### C P, DIME, CDP, TROPI #### [address] [place], [place] 8680783 [employer]: Cholo Alicea MD Bilirubin [Mass/Vol] 0.4 mg/dL Normal 0.3-1.2 [facility] Comment on above: Performed By: #### C P, DIME, CDP, TROPI #### [facility] [address] [place] [address] Dr. [place], [place] 6546183 [employer]: Cholo Alicea MD BUN/CRE Ratio 24 High 9-20 [facility] Comment on above: Performed By: #### C P, DIME, CDP, TROPI #### [facility] [address] [place], [place] 6291783 [employer]: Cholo Alicea MD Calcium [Mass/Vol] 8.6 mg/dL Normal 8.6-10.4 [facility] Comment on above: Performed By: #### C P, DIME, CDP, TROPI #### [facility] [address] [place], [place] 5211283 [employer]: Cholo Alicea MD Chloride [Moles/Vol] 100 mmol/L Normal 98-107 [facility] Comment on above: Performed By: #### C P, DIME, CDP, TROPI #### [facility] [address] [place] [address] [employer]: Cholo Alicea MD CO2 [Moles/Vol] 25 mmol/L Normal 20-31 [facility] Comment on above: Performed By: #### C P, DIME, CDP, TROPI #### [facility] [address] [place], [place] 1454583 [employer]: Cholo Alicea MD Creatinine [Mass/Vol] 0.8 mg/dL Normal 0.5-0.9 [facility] Comment on above: Performed By: #### C P, DIME, CDP, TROPI #### [facility] [address] [place] [address] [employer]: Cholo Alicea MD GFR/1.73 sq M.predicted among non-blacks MDRD (S/P/Bld) [Vol rate/Area] mL/min/{1.73_m2} Normal >60 [facility] Comment on above: Result Comment: These [...] #### C P, DIME, CDP, TROPI #### [facility] [address] [place] [address] [employer]: Cholo Alicea MD Glucose [Mass/Vol] 94 mg/dL Normal 70-99 [facility] Comment on above: Performed By: #### C P, DIME, CDP, TROPI #### [facility] [address] [place] [address] [employer]: Cholo Alicea MD Potassium [Moles/Vol] 3.8 mmol/L Normal 3.7-5.3 [facility] Comment on above: Performed By: #### C P, DIME CDP, TROPI #### [facility] [address] [place] [address] [employer]: Cholo Alicea MD Protein [Mass/Vol] 7.4 g/dL Normal 6.4-8.3 [facility] Comment on above: Performed By: #### C P, DIME, CDP, TROPI #### [facility] [address] [place] [address] [employer]: Cholo Alicea MD Sodium [Moles/Vol] 135 mmol/L Normal 135-144 [facility] Comment on above: Performed By: #### C P, DIME CDP, TROPI #### [facility] [address] [place] [address] [employer]: Cholo Alicea MD Urea nitrogen [Mass/Vol] 19 mg/dL Normal 6-20 [facility] Comment on above: Performed By: #### C P, DIME, CDP, TROPI #### [facility] [address] [place] [address] [employer]: Cholo Alicea MD D-Dimer Teston 01-07-2024 D-Dimer Test 0.39 ug/mL FEU Normal 0.00-0.59 [facility] Comment on above: Result Comment: When combined [...] C P, DIME, CDP, TROPI #### [address] [place] [address] [employer]: Cholo Alicea MD Drug Scr, Abuse, Uron 2023 Amphetamine(s),Ur Positive Abnormal NEG [facility] Comment on above: Result Comment: (Positive cutoff 1000 ng/mL) Performed By: #### D DEBBI, CDP, CP, MG #### [address] [place] [address] [employer]: Cholo Alicea MD Barbiturate(s),Ur Negative Normal NEG [facility] Comment on above: Result Comment: (Positive cutoff 200 ng/mL) Performed By: #### D DEBBI, CDP, CP, MG #### [address] [place] [address] [employer]: Cholo Alicea MD Benzodiazepine(s) Positive Abnormal NEG [facility] Comment on above: Result Comment: (Positive cutoff 200 ng/mL) Performed By: #### D DEBBI, CDP, CP, MG #### [address] [place] [address] [employer]: Cholo Alicea MD Buprenorphrine, Ur Negative Normal NEG [facility] Comment on above: Result Comment: (Positive cutoff 5 ng/ml) Performed By: #### D DEBBI, CDP, CP, MG #### [facility] [address] [place], [place] [id number] [employer]: Cholo Alicea MD Cannabinoid(s),Ur Negative Normal NEG [facility] Comment on above: Result Comment: (Positive cutoff 50 ng/mL) Performed By: #### D DEBBI, CDP, CP, MG #### [facility] [address] [place] [address] [employer]: Cholo Alicea MD Cocaine Metabolite Negative [facility] Comment on above: Result Comment: (Positive cutoff 300 ng/mL) Performed By: #### D DEBBI, CDP, CP, MG #### [facility] [address] [place] [address] [place] [address] [employer]: Cholo Alicea MD Fentanyl, Urine Negative [facility] Comment on above: Result Comment: (Positive cutoff 5 ng/ml) Performed By: #### D DEBBI, CDP, CP, MG #### [address] [place] [address] [employer]: Cholo Alicea MD Interpretive Info Assay provides medical screening only. The absence of expected drug(s) and/or Normal [facility] Comment on above: Result Comment: meta bolite(s) may indicate diluted or adulterated urine, limitations of testing or timing of collection. Testing for legal purposes should be confirmed by another method. To request confirmation of test result, please call the lab within 7 days of sample submission. Performed By: #### D DEBBI, CDP, CP, MG #### [facility] [address] [place] [address] [employer]: Cholo Alicea MD Methadone Ql (U) Negative Normal [facility] Comment on above: Result Comment: (Positive cutoff 300 ng/mL) Performed By: #### D DEBBI, CDP, CP, MG #### [facility] [address] [place] [address] [employer]: Cholo Alicea MD Opiate(s), Ur Negative Normal NEG [facility] Comment on above: Result Comment: (Positive cutoff 300 ng/mL) Performed By: #### D DEBBI, CDP, CP, MG #### [facility] [address] [place] [address] [place] [address] [employer]: Cholo Alicea MD Oxycodone, Urine Negative Normal NEG [facility] Comment on above: Result Comment: (Positive cutoff 100 ng/mL) Performed By: #### D DEBBI, CDP, CP, MG #### [facility] [address] [place] [address] [place] [address] [employer]: Cholo Alicea MD Phencyclidine, Ur Negative Normal NEG [facility] Comment on above: Result Comment: (Positive cutoff 25 ng/mL) Performed By: #### Armani DEBBI, CDP, CP, MG #### [address] [place] [address] [employer]: Cholo Alicea MD Ethanol Alcoholon 01-07-2024 Ethanol [Mass/Vol] mg/dL Normal <10 [facility] Comment on above: Performed By: #### Armani DEBBI, CDP, CP, MG #### [address] [place] [address] [employer]: Cholo Alicea MD Ethanol percent <0.010 Normal <0.010 [facility] Comment on above: Performed By: #### Armani DEBBI, CDP, CP, MG #### [facility] [address] [place] [address] [place] [address] [employer]: Cholo Alicea MD HCG, ,Urineon 01-06 Beta HCG ( test) Ql (U) Negative Normal NEG [facility] Comment on above: Result Comment: Spec imens with hCG levels near the threshold of the test (25 mIU/mL) may give a negative or indeterminate result. In such cases, another test should be performed with a new specimen in 48-72 hours. If early is suspected clinically in this setting, correlation with quantitative serum b-hCG level is suggested. [facility] has confirmed the use of plasma for this test. This has not been cleared or approved by the U.S. Food and Drug Administration. The FDA has determined that such clearance is not necessary. Performed By: #### D DEBBI, CDP, CP, MG #### [facility] [address] [place], [place] [address]83 [employer]: Cholo Alicea MD Troponinon 01-07-2024 Troponin, High Sens <6 Normal 0-14 [facility] Comment on above: Result Comment: High Sensitivity Troponin values cannot be compared with other Troponin methodologies. Performed By: #### C P, DIME, CDP, TROPI #### [address] [place], [place] [address]83 [employer]: Cholo Alicea MD UA w/Reflex Cultureon 2023 Bilirubin, SemiQt,Ur Negative Normal NEG [facility] Comment on above: Performed By: #### D DEBBI, CDP, CP, MG #### [address] [place], [place] 8844383 [employer]: Cholo Alicea MD Blood, Urine Negative Normal NEG [facility] Comment on above: Performed By: #### D DEBBI, CDP, CP, MG #### [facility] [address] [place] [address] [place] [address] [employer]: Cholo Alicea MD Clarity (U) Clear Normal CLEAR [facility] Comment on above: Performed By: #### D DEBBI, CDP, CP, MG #### [facility] [address] [place], [place] [id number] [employer]: Cholo Alicea MD Color (U) Yellow Normal YEL [facility] Comment on above: Performed By: #### D DEBBI, CDP, CP, MG #### [facility] [address] [place] [address] [place], [place] [id number] [employer]: Cholo Alicea MD Glucose Ql (U) Negative Normal NEG [facility] Comment on above: Performed By: #### D DEBBI, CDP, CP, MG #### [facility] [address] [place] [address] [place] [place], [place] 27[address]83 [employer]: Cholo Alicea MD Ketones Ql (U) Negative Normal NEG [facility] Comment on above: Performed By: #### D DEBBI, CDP, CP, MG #### [facility] [address] [place] [address] Dr[place], [facility]83 [employer]: Cholo Alicea MD Leukocyte esterase Test strip Ql (U) Negative Normal NEG [facility] Comment on above: Performed By: #### D DEBBI, CDP, CP, MG #### [address] [place], [facility] [employer]: Cholo Alicea MD Nitrite,Ur Negative Normal [facility] Comment on above: Performed By: #### D DEBBI, CDP, CP, MG #### [address] [place], [facility] [employer]: Cholo Alicea MD PH,Ur 6.0 Normal 5.0-9.0 [facility] Comment on above: Performed By: #### D DEBBI, CDP, CP, MG #### [address] [place], [facility] [employer]: Cholo Alicea MD Protein Ql (U) Negative Normal NEG [facility] Comment on above: Performed By: #### D DEBBI, CDP, CP, MG #### [address] [place], [facility] [employer]: Cholo Alicea MD Spec. Barnes,Ur >1.030 High 1.010-1.020 [facility] Comment on above: Performed By: #### D DEBBI, CDP, CP, MG #### [facility] [address] [place] [address] [place] [address] [employer]: Cholo Alicea MD Urobilinogen,Ur Normal Normal 0.0-1.0 [facility] Comment on above: Performed By: #### D DEBBI, CDP, CP, MG #### [facility] [address] [place] [address] [place] [place], [place] [id number] [employer]: Cholo Alicea MD Urinalysis,Microon 4 Bacteria 3+ Abnormal NONE [facility] Comment on above: Performed By: #### D DEBBI, CDP, CP, MG #### [address] [place], [place] 9134283 [employer]: Cholo Alicea MD Epithelial cells LM Ql (Urine sed) 5 TO 10 Normal 0-25 [facility] Comment on above: Performed By: #### D DEBBI, CDP, CP, MG #### [facility] [address] [place] [address] [place] [place], [place] 544[address]83 [employer]: Cholo Alicea MD Urine RBC's 0 TO 2 Normal 0-2 [facility] Comment on above: Performed By: #### D DEBBI, CDP, CP, MG #### [facility] [address] [place] [address] [place], [place] 9415383 [employer]: Cholo Alicea MD Urine WBC's 5 TO 10 Normal 0-5 [facility] Comment on above: Performed By: #### D DEBBI, CDP, CP, MG #### [facility] [address] [place] [address] [place] [address] [employer]: Cholo Alicea MD Venous Blood Gaseson 024 Servando Test NO Normal [facility] Comment on above: Performed By: #### D DEBBI, CDP, CP, MG #### [facility] [address] [place] [address] [place] [place], [place] 8109083 [employer]: Cholo Alicea MD Body Temp. 37.0 [facility] Comment on above: Performed By: #### D DEBBI, CDP, CP, MG #### [facility] [address] [place] [address] [employer]: Cholo Alicea MD FIO2 21 [facility] Comment on above: Performed By: #### D DEBBI, CDP, CP, MG #### [facility] [address] [place], [place] 9723683 [employer]: Cholo Alicea MD HCO3 (Bld) [Moles/Vol] 24.9 mmol/L Normal 24.0-30.0 [facility] Comment on above: Performed By: #### D DEBBI, CDP, CP, MG #### [address] [place] [address] [employer]: Cholo Alicea MD Negative Base Excess 0.2 mmol/L Normal 0.0-2.0 [facility] Comment on above: Performed By: #### D DEBBI, CDP, CP, MG #### [address] [place] [address] [employer]: Cholo Alicea MD O2 Device/Flow/% ROOM AIR [facility] Comment on above: Performed By: #### D DEBBI, CDP, CP, MG #### [facility] [address] [place] [address] [employer]: Cholo Alicea MD Oxygen saturation in Blood 77.3 % Normal 60.0-85.0 [facility] Comment on above: Performed By: #### D DEBBI, CDP, CP, MG #### [facility] [address] [place] [address] [employer]: Cholo Alicea MD pCO2 42.3 mm Hg Normal 39-55 [facility] Comment on above: Performed By: #### D DEBBI, CDP, CP, MG #### [facility] [address] [place] [address] [place], [place] 0835383 [employer]: Cholo Alicea MD Pco2 Adj'd for Temp. 42.3 mmHg Normal 39.0-55.0 [facility] Comment on above: Performed By: #### D DEBBI, CDP, CP, MG #### [address] [place], [place] [address]3 [employer]: Cholo Alicea MD pH (Bld) 7.388 [pH] Normal 7.32-7.42 [facility] Comment on above: Performed By: #### D DEBBI, CDP, CP, MG #### [address] [place], [place] [address] [employer]: Cholo Alicea MD pH Adjst'd for Temp. 7.388 Normal 7.320-7.420 [facility] Comment on above: Performed By: #### D DEBBI, CDP, CP, MG #### [address] [place] [address] [employer]: Cholo Alicea MD pO2 42.2 mm Hg Normal 30.0-50.0 [facility] Comment on above: Performed By: #### D DEBBI, CDP, CP, MG #### [address] [place], [place] 480[address]183 [employer]: Cholo Alicea MD pO2 Adj'd for Temp. 42.2 mmHg Normal 30.0-50.0 [facility] Comment on above: Performed By: #### D DEBBI, CDP, CP, MG #### [address] [place] [address] [employer]: Cholo Alicea MD XR CHEST PORTABLEon 01-07-20 [...] Jonnie So MD 01/07/24 Final result Normal [facility] Basic Metabolic Profon 11-19 Anion gap [Moles/Vol] 9 mmol/L Normal - [facility] Comment on above: Performed By: #### D DEBBI, CDP, CP, MG #### [facility] [address] [place] [address] [employer]: Cholo Alicea MD BUN/CRE Ratio 11 Normal 9-20 [facility] Comment on above: Performed By: #### D DEBBI, CDP, CP, MG #### [facility] [address] [place] [address] [employer]: Cholo Alicea MD Calcium [Mass/Vol] 9.1 mg/dL Normal 8.6-10.4 [facility] Comment on above: Performed By: #### D DEBBI, CDP, CP, MG #### [facility] [address] [place] [address] [employer]: Cholo Alicea MD Chloride [Moles/Vol] 103 mmol/L Normal 98-107 [facility] Comment on above: Performed By: #### D DEBBI, CDP, CP, MG #### [facility] [address] [place] [address] [employer]: Cholo Alicea MD CO2 [Moles/Vol] 25 mmol/L Normal 20-31 [facility] Comment on above: Performed By: #### D DEBBI, CDP, CP, MG #### [facility] [address] [place] [address] [employer]: Cholo Alicea MD Creatinine [Mass/Vol] 0.8 mg/dL Normal 0.5-0.9 [facility] Comment on above: Performed By: #### D DEBBI, CDP, CP, MG #### [facility] [address] [place] [address] [employer]: Cholo Alicea MD GFR/1.73 sq M.predicted among non-blacks MDRD (S/P/Bld) [Vol rate/Area] mL/min/{1.73_m2} Normal >60 [facility] Comment on above: Result Comment: These [...] #### D DEBBI, CDP, CP, MG #### [facility] [address] [place] [address] [employer]: Cholo Alicea MD Glucose [Mass/Vol] 87 mg/dL Normal 70-99 [facility] Comment on above: Performed By: #### D DEBBI, CDP, CP, MG #### [address] [place] [address] [employer]: Cholo Alicea MD Potassium [Moles/Vol] 3.8 mmol/L Normal 3.7-5.3 [facility] Comment on above: Performed By: #### D DEBBI, CDP, CP, MG #### [facility] [address] [place] [address] [employer]: Cholo Alicea MD Sodium [Moles/Vol] 137 mmol/L Normal 135-144 [facility] Comment on above: Performed By: #### D DEBBI, CDP, CP, MG #### [facility] [address] [place], [place] [address]83 [employer]: Cholo Alicea MD Urea nitrogen [Mass/Vol] 9 mg/dL Normal 6-20 [facility] Comment on above: Performed By: #### D DEBBI, CDP, CP, MG #### [address] [place], [place] 927[address]83 [employer]: Cholo Alicea MD CBC with Diffon 11-20-2023 Abs. Basophil 0.05 k/uL Normal 0.00-0.20 [facility] Comment on above: Performed By: #### D DEBBI, CDP, CP, MG #### [address] [place] [address]83 [employer]: Cholo Alicea MD Abs.Imm.Granulocyte <0.03 Normal 0.00-0.30 [facility] Comment on above: Performed By: #### D DEBBI, CDP, CP, MG #### [address] [place] [address]83 [employer]: Cholo Alicea MD Abs.Neutrophil (Seg) 4.60 k/uL Normal 1.50-8.10 [facility] Comment on above: Performed By: #### D DEBBI, CDP, CP, MG #### [address] [place] [address]83 [employer]: Cholo Alicea MD Basophils/100 WBC (Bld) 1 % Normal 0-2 [facility] Comment on above: Performed By: #### D DEBBI, CDP, CP, MG #### [address] [place], [facility]83 [employer]: Cholo Alicea MD Eosinophils (Bld) [#/Vol] 0.07 10*3/uL Normal 0.00-0.44 [facility] Comment on above: Performed By: #### D DEBBI, CDP, CP, MG #### [address] [place] [address]83 [employer]: Cholo Alicea MD Eosinophils/100 WBC (Bld) 1 % Normal 1-4 [facility] Comment on above: Performed By: #### D DEBBI, CDP, CP, MG #### [facility] [address] [place] [address] [employer]: Cholo Alicea MD Erythrocyte distribution width (RBC) [Ratio] 12.3 % Normal 11.8-14.4 [facility] Comment on above: Performed By: #### D DEBBI, CDP, CP, MG #### [facility] [address] [place] [address] [employer]: Cholo Alicea MD Hematocrit (Bld) [Volume fraction] 39.8 % Normal 36.3-47.1 [facility] Comment on above: Performed By: #### D DEBBI, CDP, CP, MG #### [address] [place], [place] [address] [employer]: Cholo Alicea MD Hemoglobin (Bld) [Mass/Vol] 13.5 g/dL Normal 11.9-15.1 [facility] Comment on above: Performed By: #### D DEBBI, CDP, CP, MG #### [address] [place] [address]83 [employer]: Cholo Alicea MD Immature granulocytes/100 WBC (Bld) 0 % Normal 0 [facility] Comment on above: Performed By: #### D DEBBI, CDP, CP, MG #### [address] [place], [facility]83 [employer]: Cholo Alicea MD Lymphocytes (Bld) [#/Vol] 2.81 10*3/uL Normal 1.10-3.70 [facility] Comment on above: Performed By: #### D DEBBI, CDP, CP, MG #### [address] [place], [place] 1659083 [employer]: Cholo Alicea MD Lymphocytes/100 WBC (Bld) 34 % Normal 24-43 [facility] Comment on above: Performed By: #### D DEBBI, CDP, CP, MG #### [address] [place], [facility]83 [employer]: Cholo Alicea MD MCH (RBC) [Entitic mass] 29.9 pg Normal 25.2-33.5 [facility] Comment on above: Performed By: #### D DEBBI, CDP, CP, MG #### [address] [place], [facility]83 [employer]: Cholo Alicea MD MCHC (RBC) [Mass/Vol] 33.9 g/dL Normal 28.4-34.8 [facility] Comment on above: Performed By: #### D DEBBI, CDP, CP, MG #### [address] [place], [facility]83 [employer]: Cholo Alicea MD MCV (RBC) [Entitic vol] 88.1 fL Normal 82.6-102.9 [facility] Comment on above: Performed By: #### D DEBBI, CDP, CP, MG #### [address] [place], [facility]83 [employer]: Cholo Alicea MD Monocytes (Bld) [#/Vol] 0.62 10*3/uL Normal 0.10-1.20 [facility] Comment on above: Performed By: #### D DEBBI, CDP, CP, MG #### [address] [place] [address] [employer]: Cholo Alicea MD Monocytes/100 WBC (Bld) 8 % Normal 3-12 M [facility] Comment on above: Performed By: #### D DEBBI, CDP, CP, MG #### [address] [place], [place] 4757283 [employer]: Cholo Alicea MD Neutrophil (Seg) 56 % Normal 36-65 [facility] Comment on above: Performed By: #### D DEBBI, CDP, CP, MG #### [facility] [address] [place] [address] [place], [place] 9063083 [employer]: Cholo Alicea MD NRBC Automated 0.0 per 100 WBC Normal 0.0 [facility] Comment on above: Performed By: #### D DEBBI, CDP, CP, MG #### [address] [place], [facility]83 [employer]: Cholo Alicea MD Platelet mean volume (Bld) [Entitic vol] 10.2 fL Normal 8.1-13.5 [facility] Comment on above: Performed By: #### D DEBBI, CDP, CP, MG #### [address] [place], [facility]83 [employer]: Cholo Alicea MD Platelets (Bld) [#/Vol] 302 10*3/uL Normal 138-453 [facility] Comment on above: Performed By: #### D DEBBI, CDP, CP, MG #### [address] [place], [facility]83 [employer]: Cholo Alicea MD RBC (Bld) [#/Vol] 4.52 10*6/uL Normal 3.95-5.11 [facility] Comment on above: Performed By: #### D DEBBI, CDP, CP, MG #### [address] [place] [address] [employer]: Cholo Alicea MD WBC (Bld) [#/Vol] 8.2 10*3/uL Normal 3.5-11.3 [facility] Comment on above: Performed By: #### D DEBBI, CDP, CP, MG #### [facility] [address] [place] [address] [employer]: Cholo Alicea MD CT CHEST PULMONARY EMBOLISM [...] Costa Block MD 11/20/23 Final result Normal [facility] Troponinon 11-20-2023 Troponin, High Sens <6 Normal 0-14 [facility] Comment on above: Result Comment: High Sensitivity Troponin values cannot be compared with other Troponin methodologies. Performed By: #### D DEBBI, CDP, CP, MG #### [facility] [address] [place] [address] [employer]: Cholo Alicea MD CBC AND AUTO DIFFon 11-19-19 ABSOLUTE BASOPHIL 0.1 X10E9/L Normal 0.0-0.2 [facility] Comment on above: Performed By: #### C BCA, CMP, 73624-5, 30371-7 #### [facility] ([id number]) [address] [place] [address] ABSOLUTE NEUTROPHIL 4.6 X10E9/L Normal 1.5-6.6 [facility] Comment on above: Performed By: #### C BCA, CMP, 48308-8, 24517-8 #### [facility] ([id number]) [address] [place] [address] Basophils/100 WBC (Bld) 0.8 % Normal [facility] Comment on above: Performed By: #### C OSWALDO, CMP, 09666-1, 40805-3 #### [facility] ([id number]) [address] [place] [address] Eosinophils (Bld) [#/Vol] 0.1 10*3/uL Normal 0.0-0.4 [facility] Comment on above: Performed By: #### C BCA, CMP, 19085-9, 78167-4 #### [facility] ([id number]) [address] [place] [address] Eosinophils/100 WBC (Bld) 1.3 % Normal [facility] Comment on above: Performed By: #### C OSWALDO, CMP, 65006-6, 06539-1 #### [facility] ([id number]) [address] [place] [address] Erythrocyte distribution width (RBC) [Ratio] 13.2 % Normal 11.5-15.0 [facility] Comment on above: Performed By: #### C BCA, CMP, 65951-6, 68528-5 #### [facility] ([id number]) [address] [place] [address]93 Hematocrit (Bld) [Volume fraction] 38.7 % Normal 35-47 [facility] Comment on above: Performed By: #### C BCA, CMP, 26043-6, 28094-2 #### [facility] ([id number]) [address] [place] [address]70 Hemoglobin (Bld) [Mass/Vol] 13.3 g/dL Normal 11.7-15.5 [facility] Comment on above: Performed By: #### Franco CHACON, CMP, 43052-6, 93845-3 #### [facility] ([id number]) [address] [place] [address] Lymphocytes (Bld) [#/Vol] 2.6 10*3/uL Normal 1.0-3.5 [facility] Comment on above: Performed By: #### Franco CHACON, CMP, 38565-8, 23342-1 #### [facility] ([id number]) [address] [place] [address] 26914 Lymphocytes/100 WBC (Bld) 33.3 % Normal [facility] Comment on above: Performed By: #### C OSWALDO, CMP, 94093-4, 01790-8 #### [facility] ([id number]) [address] [place] [address] 67812 MCH (RBC) [Entitic mass] 30.1 pg Normal 27-34 [facility] Comment on above: Performed By: #### C OSWALDO, CMP, 55530-8, 59019-0 #### [facility] ([id number]) [address] [place] [address]241 MCHC (RBC) [Mass/Vol] 34.4 g/dL Normal 32-36 [facility] Comment on above: Performed By: #### C OSWALDO, CMP, 49079-1, 87351-5 #### [facility] ([id number]) [address] [place] [address] 24037 MCV (RBC) [Entitic vol] 88 fL Normal 80-100 [facility] Comment on above: Performed By: #### C OSWALDO, CMP, 18081-6, 90031-9 #### [facility] ([id number]) [address] [place] [address] 12381 Monocytes (Bld) [#/Vol] 0.6 10*3/uL Normal 0-0.9 [facility] Comment on above: Performed By: #### Franco CHACON, CMP, 90045-1, 64308-6 #### [facility] ([id number]) [address] [place] [address] 02847 Monocytes/100 WBC (Bld) 7.1 % Normal [facility] Comment on above: Performed By: #### Franco CHACON, CMP, 52826-4, 30283-3 #### [facility] ([id number]) [address] [place] [address] 78877 Neutrophils/100 WBC (Bld) 57.5 % Normal [facility] Comment on above: Performed By: #### Franco CHACON, CMP, 18344-0, 81865-1 #### [facility] ([id number]) [address] [place] [address] 59014 Platelet mean volume (Bld) [Entitic vol] 8.2 fL Normal 7-12 [facility] Comment on above: Performed By: #### Franco CHACON, CMP, 30501-6, 43818-5 #### [facility] ([id number]) [address] [place] [address] 61698 Platelets (Bld) [#/Vol] 306 10*3/uL Normal 150-450 [facility] Comment on above: Performed By: #### Franco CHACON, CMP, 22944-6, 63756-9 #### [facility] ([id number]) [address] [place] [address] 80679 RBC COUNT 4.42 X10E12/L Normal 3.80-5.20 [facility] Comment on above: Performed By: #### C BCA, CMP, 14423-6, 60126-0 #### [facility] ([id number]) [address] [place] [address] 17712 WBC (Bld) [#/Vol] 7.9 10*3/uL Normal 4.0-11.0 [facility] Comment on above: Performed By: #### C BCA, CMP, 63739-7, 91634-1 #### [facility] ([id number]) [address] [place] [address] 92722 COMPREHENSIVE METABOLIC PANE Haile 11-19-2023 Albumin [Mass/Vol] 4.5 g/dL Normal 3.2-5.3 [facility] Comment on above: Performed By: #### C OSWALDO, CMP, 14633-5, 66020-8 #### [facility] ([id number]) [address] [place] [address] 86982 ALP [Catalytic activity/Vol] 70 U/L Normal 39-130 [facility] Comment on above: Performed By: #### C OSWALDO, CMP, 43957-8, 61120-3 #### [facility] ([id number]) [address] [place] [address] 92437 ALT [Catalytic activity/Vol] 15 U/L Normal 0-31 [facility] Comment on above: Performed By: #### C BCA, CMP, 19449-8, 20498-5 #### [facility] ([id number]) [address] [place] [address] 08103 Anion gap [Moles/Vol] 3 mmol/L Low 5-15 [facility] Comment on above: Performed By: #### C BCA, CMP, 55069-2, 32276-5 #### [facility] ([id number]) [address] [place] [address] 18953 AST [Catalytic activity/Vol] 19 U/L Normal 0-41 [facility] Comment on above: Performed By: #### C BCA, CMP, 62398-7, 72321-7 #### [facility] ([id number]) [address] [place] [address] 57837 Bilirubin [Mass/Vol] 0.5 mg/dL Normal 0.3-1.2 [facility] Comment on above: Performed By: #### C BCA, CMP, 62330-3, 75978-6 #### [facility] ([id number]) [address] [place] [address] 46422 Calcium [Mass/Vol] 8.6 mg/dL Normal 8.5-10.5 [facility] Comment on above: Performed By: #### C BCA, CMP, 38082-6, 73191-0 #### [facility] ([id number]) [address] [place] [address] 16788 Chloride [Moles/Vol] 107 mmol/L Normal 98-109 [facility] Comment on above: Performed By: #### C BCA, CMP, 31846-5, 90133-8 #### [facility] ([id number]) [address] [place] [address] 73629 CO2 [Moles/Vol] 27 mmol/L Normal 22-32 [facility] Comment on above: Performed By: #### C BCA, CMP, 90719-6, 48170-7 #### [facility] ([id number]) [address] [place] [address] 76239 Creatinine [Mass/Vol] 0.98 mg/dL Normal 0.40-1.00 [facility] Comment on above: Result Comment: METH OD TRACEABLE TO IDMS STANDARD Performed By: #### C BCA, CMP, 43589-4, 72391-0 #### [facility] ([id number]) [address] [place] [address] 50592 GFR/1.73 sq M.predicted among non-blacks MDRD (S/P/Bld) [Vol rate/Area] 82 mL/min/{1.73_m2} Normal >59 [facility] Comment on above: Result Comment: Reported eGFR is based on the CKD-EPI 2020 equation that does not use a race coefficient. Performed By: #### C PIPO CHACON, 21176-2, 88470-3 #### [facility] ([id number]) [address] [place] [address] 50490 Glucose [Mass/Vol] 81 mg/dL Normal 65-99 [facility] Comment on above: Performed By: #### C PIPO CHACON, 94911-2, 94019-6 #### [facility] ([id number]) [address] [place] [address] 41992 Potassium [Moles/Vol] 3.5 mmol/L Normal 3.5-5.0 [facility] Comment on above: Performed By: #### C PIPO CHACON, 54589-8, 49344-8 #### [facility] ([id number]) [address] [place] [address] 11097 Protein [Mass/Vol] 7.8 g/dL Normal 6.0-8.0 [facility] Comment on above: Performed By: #### C PIPO CHACON, 64538-9, 43068-6 #### [facility] ([id number]) [address] [place] [address] 82135 Sodium [Moles/Vol] 137 mmol/L Normal 134-146 [facility] Comment on above: Performed By: #### C PIPO CHACON, 31604-3, 26644-8 #### [facility] ([id number]) [address] [place] [address] 23275 Urea nitrogen [Mass/Vol] 15 mg/dL Normal 5-23 [facility] Comment on above: Performed By: #### C OSWALDO PIPO, 03557-6, 32999-9 #### [facility] ([id number]) [address] [place] [address] 27659 Fibrin D-dimer DDU (PPP) [Ma ss/Vol]on 11-19-2023 D DIMER <150 Normal <255 [facility] Comment on above: Result Comment: Results <255 ng/mL DDU: The presence of a VTE can safely be excluded with a negative D-Dimer result and Wells score. A negative result doesn't exclude the possibility of DIC. The test be repeated along with other diagnostic tests if the patient's symptoms persist or worsen. [email or web address] Performed By: #### C PIPO CHACON, 59137-0, 27692-8 #### [facility] ([id number]) [address] [place] [address] 43365 HCG ( test) Ql (U)o n 11-19-2023 Beta HCG ( test) Ql (U) Negative Normal NEG [facility] Comment on above: Performed By: #### 2 106-3 #### [facility] ([id number]) [address] [place] [address] 77296 Troponin I.cardiac High sens itivity method [Mass/Vol]on 11-19-2023 1 HOUR TROP I, HIGH SENSITIVITY <2 Normal <16 [facility] Comment on above: Performed By: #### 8 9579-7 #### [facility] ([id number]) [address] [place] [address] 17822 TROPONIN I, HIGH SENSITIVITY <2 Normal <16 [facility] Comment on above: Performed By: #### C PIPO CHACON, 98179-8, 39199-8 #### [facility] ([id number]) [address] [place] [address] 71561 URN MACROSCOPIC NURon 2023 BILIRUBIN NADYA Negative Normal NEG [facility] Comment on above: Performed By: #### N UM #### [facility] ([id number]) [address] [place] [address] 42175 BLOOD/HGB NADYA Negative Normal NEG [facility] Comment on above: Performed By: #### N UM #### [facility] ([id number]) [address] [place] [address] 98183 GLUCOSE NADYA Negative Normal NEG [facility] Comment on above: Performed By: #### N UM #### [facility] ([id number]) [address] [place] [address] 59105 KETONES NADYA Negative Normal NEG [facility] Comment on above: Performed By: #### N UM #### [facility] ([id number]) [address] [place] [address] [place] [address] LEUKOCYTE ESTERASE NADYA Negative Normal NEG [facility] Comment on above: Performed By: #### N UM #### [facility] ([id number]) [address] [place] [address] 73559 NITRITE NADYA Negative Normal NEG [facility] Comment on above: Performed By: #### N UM #### [facility] ([id number]) [address] [place] [address] 95539 PH NAYDA 8.5 Normal 5.0-8.5 [facility] Comment on above: Performed By: #### N UM #### [facility] ([id number]) [address] [place] [address] 17563 PROTEIN NADYA Negative Normal NEG [facility] Comment on above: Performed By: #### N UM #### [facility] ([id number]) [address] [place] [address] [place] [address] SPECIFIC GRAVITY NADYA 1.015 Normal 1.003-1.035 [facility] Comment on above: Performed By: #### N UM #### [facility] ([id number]) [address] [place] [address] 89098 UROBILINOGEN NADYA 1.0 eu/dL Normal <1.1 [facility] Comment on above: Performed By: #### N UM #### [facility] ([id number]) [address] [place] [address] 36461 XR CHEST 2 VWSon 11-19-2023 XR CHEST [...] Martinez MD on 11/19/2023 5:27 PM Normal [facility] CBC with Diffon 11-17-2023 Abs. Basophil 0.07 k/uL Normal 0.00-0.20 [facility] Comment on above: Performed By: #### D TATA YANG, CP, MG #### [facility] [address] [place] [address] [employer]: Cholo Alicea MD Abs.Imm.Granulocyte <0.03 Normal 0.00-0.30 [facility] Comment on above: Performed By: #### D TATA YANG, CP, MG #### [facility] [address] [place] [address] [employer]: Cholo Alicea MD Abs.Neutrophil (Seg) 4.68 k/uL Normal 1.50-8.10 [facility] Comment on above: Performed By: #### D DEBBI, CDP, CP, MG #### [facility] [address] [place] [address] Dr. [place], [facility] [employer]: Cholo Alicea MD Basophils/100 WBC (Bld) 1 % Normal 0-2 [facility] Comment on above: Performed By: #### D DEBBI, CDP, CP, MG #### [address] [place], [facility] [employer]: Cholo Alicea MD Eosinophils (Bld) [#/Vol] 0.05 10*3/uL Normal 0.00-0.44 [facility] Comment on above: Performed By: #### D DEBBI, CDP, CP, MG #### [address] [place] [address]83 [employer]: Cholo Alicea MD Eosinophils/100 WBC (Bld) 1 % Normal 1-4 [facility] Comment on above: Performed By: #### D DEBBI, CDP, CP, MG #### [address] [place], [facility] [employer]: Cholo Alicea MD Erythrocyte distribution width (RBC) [Ratio] 12.2 % Normal 11.8-14.4 [facility] Comment on above: Performed By: #### D DEBBI, CDP, CP, MG #### [address] [place], [facility] [employer]: Cholo Alicea MD Hematocrit (Bld) [Volume fraction] 37.6 % Normal 36.3-47.1 [facility] Comment on above: Performed By: #### D DEBBI, CDP, CP, MG #### [address] [place] [address] [employer]: Cholo Alicea MD Hemoglobin (Bld) [Mass/Vol] 13.1 g/dL Normal 11.9-15.1 [facility] Comment on above: Performed By: #### D DEBBI, CDP, CP, MG #### [facility] [address] [place] [address] Dr. [place], [facility] [employer]: Cholo Alicea MD Immature granulocytes/100 WBC (Bld) 0 % Normal 0 [facility] Comment on above: Performed By: #### D DEBBI, CDP, CP, MG #### [address] [place], [facility] [employer]: Cholo Alicea MD Lymphocytes (Bld) [#/Vol] 3.32 10*3/uL Normal 1.10-3.70 [facility] Comment on above: Performed By: #### D DEBBI, CDP, CP, MG #### [address] [place] [address]83 [employer]: Cholo Alicea MD Lymphocytes/100 WBC (Bld) 38 % Normal 24-43 [facility] Comment on above: Performed By: #### D DEBBI, CDP, CP, MG #### [address] [place], [facility] [employer]: Cholo Alicea MD MCH (RBC) [Entitic mass] 30.2 pg Normal 25.2-33.5 [facility] Comment on above: Performed By: #### D DEBBI, CDP, CP, MG #### [address] [place], [facility]83 [employer]: Cholo Alicea MD MCHC (RBC) [Mass/Vol] 34.8 g/dL Normal 28.4-34.8 [facility] Comment on above: Performed By: #### D DEBBI, CDP, CP, MG #### [address] [place] [address] [employer]: Cholo Alicea MD MCV (RBC) [Entitic vol] 86.6 fL Normal 82.6-102.9 [facility] Comment on above: Performed By: #### D DEBBI, CDP, CP, MG #### [facility] [address] [place], [place] 515[address]83 [employer]: Cholo Alicea MD Monocytes (Bld) [#/Vol] 0.62 10*3/uL Normal 0.10-1.20 [facility] Comment on above: Performed By: #### D DEBBI, CDP, CP, MG #### [facility] [address] [place], [place] 3709783 [employer]: Cholo Alicea MD Monocytes/100 WBC (Bld) 7 % Normal 3-12 [facility] Comment on above: Performed By: #### D DEBBI, CDP, CP, MG #### [address] [place], [facility]83 [employer]: Cholo Alicea MD Neutrophil (Seg) 53 % Normal 36-65 [facility] Comment on above: Performed By: #### D DEBBI, CDP, CP, MG #### [address] [place], [facility]83 [employer]: Cholo Alicea MD NRBC Automated 0.0 per 100 WBC Normal 0.0 [facility] Comment on above: Performed By: #### D DEBBI, CDP, CP, MG #### [address] [place], [facility]83 [employer]: Cholo Alicea MD Platelet mean volume (Bld) [Entitic vol] 10.3 fL Normal 8.1-13.5 [facility] Comment on above: Performed By: #### D DEBBI, CDP, CP, MG #### [address] [place] [address] [employer]: Cholo Alicea MD Platelets (Bld) [#/Vol] 294 10*3/uL Normal 138-453 [facility] Comment on above: Performed By: #### D DEBBI, CDP, CP, MG #### [facility] [address] [place], [place] 757[address]83 [employer]: Cholo Alicea MD RBC (Bld) [#/Vol] 4.34 10*6/uL Normal 3.95-5.11 [facility] Comment on above: Performed By: #### D DEBBI, CDP, CP, MG #### [facility] [address] [place], [place] 0996283 [employer]: Cholo Alicea MD WBC (Bld) [#/Vol] 8.8 10*3/uL Normal 3.5-11.3 [facility] Comment on above: Performed By: #### D DEBBI, CDP, CP, MG #### [address] [place], [place] 211[address]83 [employer]: Cholo Alicea MD Comp Metabolic Profon 2023 Albumin [Mass/Vol] 4.3 g/dL Normal 3.5-5.2 [facility] Comment on above: Performed By: #### D DEBBI, CDP, CP, MG #### [address] [place], [place] 3347683 [employer]: Cholo Alicea MD Albumin/Glob Ratio 1.6 Normal 1.0-2.5 [facility] Comment on above: Performed By: #### D DEBBI, CDP, CP, MG #### [facility] [address] [place], [place] [address]83 [employer]: Cholo Alicea MD Alkaline Phos 75 U/L Normal 35-104 [facility] Comment on above: Performed By: #### D DEBBI, CDP, CP, MG #### [facility] [address] [place], [place] 136[address]83 [employer]: Cholo Alicea MD ALT [Catalytic activity/Vol] 9 U/L Normal 5-33 [facility] Comment on above: Performed By: #### D DEBBI, CDP, CP, MG #### [facility] [address] [place], [place] 24[address]83 [employer]: Cholo Alicea MD Anion gap [Moles/Vol] 11 mmol/L Normal 9-17 [facility] Comment on above: Performed By: #### D DEBBI, CDP, CP, MG #### [facility] [address] [place], [place] 348[address]83 [employer]: Cholo Alicea MD AST [Catalytic activity/Vol] 15 U/L Normal <32 [facility] Comment on above: Performed By: #### D DEBBI, CDP, CP, MG #### [address] [place], [place] 4988483 [employer]: Cholo Alicea MD Bilirubin [Mass/Vol] 0.3 mg/dL Normal 0.3-1.2 [facility] Comment on above: Performed By: #### D DEBBI, CDP, CP, MG #### [address] [place], [place] 5977283 [employer]: Cholo Alicea MD BUN/CRE Ratio 19 Normal 9-20 [facility] Comment on above: Performed By: #### D DEBBI, CDP, CP, MG #### [address] [place], [place] [address]83 [employer]: Cholo Alicea MD Calcium [Mass/Vol] 8.7 mg/dL Normal 8.6-10.4 [facility] Comment on above: Performed By: #### D DEBBI, CDP, CP, MG #### [facility] [address] [place] [address] [place] [address] [employer]: Cholo Alicea MD Chloride [Moles/Vol] 103 mmol/L Normal 98-107 [facility] Comment on above: Performed By: #### D DEBBI, CDP, CP, MG #### [facility] [address] [place] [address] [employer]: Cholo Alicea MD CO2 [Moles/Vol] 24 mmol/L Normal 20-31 [facility] Comment on above: Performed By: #### D DEBBI, CDP, CP, MG #### [facility] [address] [place] [address] [employer]: Cholo Alicea MD Creatinine [Mass/Vol] 0.8 mg/dL Normal 0.5-0.9 [facility] Comment on above: Performed By: #### D DEBBI, CDP, CP, MG #### [address] [place] [address] [employer]: Cholo Alicea MD GFR/1.73 sq M.predicted among non-blacks MDRD (S/P/Bld) [Vol rate/Area] mL/min/{1.73_m2} Normal >60 [facility] Comment on above: Result Comment: These [...] D DEBBI, CDP, CP, MG #### [address] [place] [address] [employer]: Cholo Alicea MD Glucose [Mass/Vol] 98 mg/dL Normal 70-99 [facility] Comment on above: Performed By: #### D DEBBI, CDP, CP, MG #### [facility] [address] [place] [address] [employer]: Cholo Alicea MD Potassium [Moles/Vol] 3.3 mmol/L Low 3.7-5.3 [facility] Comment on above: Performed By: #### D DEBBI, CDP, CP, MG #### [facility] [address] [place] [address] [employer]: Cholo Alicea MD Protein [Mass/Vol] 7.0 g/dL Normal 6.4-8.3 [facility] Comment on above: Performed By: #### D DEBBI, CDP, CP, MG #### [facility] [address] [place] [address] [employer]: Cholo Alicea MD Sodium [Moles/Vol] 138 mmol/L Normal 135-144 [facility] Comment on above: Performed By: #### D DEBBI, CDP, CP, MG #### [facility] [address] [place] [address] [place] [address] [employer]: Cholo Alicea MD Urea nitrogen [Mass/Vol] 15 mg/dL Normal 6-20 [facility] Comment on above: Performed By: #### D DEBBI, CDP, CP, MG #### [facility] [address] [place] [address] [place] [address] [employer]: Cholo Alicea MD D-Dimer Teston 11-17-2023 D-Dimer Test 0.40 ug/mL FEU Normal 0.00-0.59 [facility] Comment on above: Result Comment: When combined [...] D DEBBI, CDP, CP, MG #### [address] [place] [address] [employer]: Cholo Alicea MD HCG Screen, Bloodon 11-17-19 24 HCG Screen, Blood Negative Normal NEG [facility] Comment on above: Result Comment: Spec imens with hCG levels near the threshold of the test (25 mIU/mL) may give a negative or indeterminate result. In such cases, another test should be performed with a new specimen in 48-72 hours. If early is suspected clinically in this setting, correlation with quantitative serum b-hCG level is suggested. [facility] has confirmed the use of plasma for this test. This has not been cleared or approved by the U.S. Food and Drug Administration. The FDA has determined that such clearance is not necessary. Performed By: #### D DEBBI, CDP, CP, MG #### [address] [place] [address] [employer]: Cholo Alicea MD Magnesiumon 11-17-2023 Magnesium [Mass/Vol] 1.8 mg/dL Normal 1.6-2.6 [facility] Comment on above: Performed By: #### D DEBBI, CDP, CP, MG #### [address] [place] [address] [employer]: Cholo Alicea MD [id number] 11-17-2023 SARS-CoV-2 (COVID-19) RNA ALEKSANDER+probe Ql (Unsp spec) Not detected Normal NOTDET [facility] Comment on above: Result Comment: Rapid NAAT: [...] management decisions. Fact sheet for Healthcare Providers: https://www.fda.gov/media/829049/download Fact sheet for Patients: https://www.fda.gov/media/881683/download Methodology: Isothermal Nucleic Acid Amplification Performed By: #### C OVRB #### [address] [place] [address] [employer]: Cholo Alicea MD XR CHEST (2 VW)on [...] Rosalee Guevara MD 11/17/23 Final result Normal [facility] Ambulatory Visit Summaryon 0 11-08-2023 Ambulatory Visit [...] for choosing us for your care. Normal [facility] RAD - MISCon 11-07-2023 RAD - MISC [id number] #1.00TIFF Normal [facility] RAD - Ultrasound Reporton RAD - Ultrasound Report [id number] #1.00TIFF Normal [facility] RAD - CT Reporton 05-25-2023 RAD - CT Report [id number] #1.00TIFF Normal [facility] HCG ( test) IApo d Ql (U)Ordered By: Fany Ceballos on 05-19-2023 HCG ( test) Ql (U) Negative [facility] HCG,Urineon 05-19-2023 Beta HCG ( test) Ql (U) Negative Normal [facility] Comment on above: Result Comment: PERF ORMED BY: [place] [address] PATHOLOGIST OUTPATIENT FACILITY PHYSICAL THERAPIST MOISES VELASCO M.D. Performed By: #### U HCG #### [address] 05-19-2023 L Specimen: [id number] Received: 05/20/23 Status: RUDY Bassett Num: [id number] Spec Type: Surgical Subm Dr: Fany Ceballos MD Tissues: A Duodenum - Biopsy (DUODENAL BX) B Esophagus Biopsy (ESOPHAGUS BX) Procedures: HE/4, Gross/Micro L4/2 Age/ Patient Sex Location Account Attending Physician Lulú Gaitan 28/F [id number] Fany Ceballos MD SPEC NUM: [id number] RECD: 05/20/23 STATUS: RUDY STANISLAW NUM: [id number] PHILIP: 05/19/23- SUBM DR: Fany Ceballos MD ENTERED: 05/20/23 [facility] DR: SPEC TYPE: Surgical DEPT: S ORDERED: [...] submitted in one cassette labeled B1. Specimen: [id number] Received: 05/20/23 Status: RUDY Bassett Num: [id number] Spec Type: Surgical Subm Dr: Fany Ceballos MD Tissues: A Duodenum - Biopsy (DUODENAL BX) B Esophagus Biopsy (ESOPHAGUS BX) Procedures: HE/4, Gross/Micro L4/2 Patient: Lulú Gaitan [id number] (Continued) Specimen: [id number] Received: 05/20/23 (Continued) Signed (signature on file) Cielo Trimble MD 05/24/23 2301 Specimen: [id number] Received: 05/20/23 Status: RUDY Bassett Num: [id number] Spec Type: Surgical Subm Dr: Fany Ceballos MD Tissues: A Duodenum - Biopsy (DUODENAL BX) B Esophagus Biopsy (ESOPHAGUS BX) Procedures: HE/4, Gross/Micro L4/2 Patient: Lulú Gaitan Maury [id number] (Continued) Specimen: [id number] Received: 05/20/23 (Continued) Microscopic Description A. Two H E slides reviewed. The microscopic examination confirms the diagnosis. B. Two H E slides reviewed. The microscopic examination confirms the diagnosis. CPT Codes 05712k0 Specimen: [id number] Received: 05/20/23 Status: RUDY Bassett Num: [id number] Spec Type: Surgical Subm Dr: Fany Ceballos MD Tissues: A Duodenum - Biopsy (DUODENAL BX) B Esophagus Biopsy (ESOPHAGUS BX) Procedures: MARIELOS, Gross/Micro L4/2 Patient: Lulú Gaitan [id number] (Continued) Signed (signature on file) Cielo Trimble MD 05/24/234 Normal [facility] CT abdomen pelvis w [facility] CT abdomen pelvis w [address] [address] [address] Scan Report Signed Patient: Lulú Gaitan MR#: [id number] 4 : 1995 Acct:[id number] Age/Sex: 28 / F ADM Date: 05/12/23 Loc: CT Room: Type: [facility] Attending Dr: Fany Ceballos MD Copies [...] Pham Jr., D.OAung05/12/2023 10:29 AM Dictation Location: [place] [address] Transcribed By: [facility] 05/12/23 1029 Dictated By: Samy Pham Jr, DO 05/12/23 1023 Signed By: 05/12/23 [address] [facility] Physician [facility] Consent for Procedure/Surger yon 05-11-2023 Consent for Procedure/Surgery [id number] 6#1.00TIFF [facility] Ambulatory Visit Summaryon 1 07-11-2022 Ambulatory [...] these instructions at home: Medicines ? Take yftc-tbt-ihzqntw and prescription medicines only as told by [...] the blood stops without treatment. ? Take rtqo-hvt-kivfnns and prescription medicines only as told by your health care provider. ? Drink enough fluid to keep your urine pale yellow. This information is not intended to replace advice given to you by your health care provider. Make sure you discuss any questions you have with your health care provider. Document Revised: 01/14/2021 Document Reviewed: 01/14/2021 REPUBLIC RESOURCES Patient Education ? 2022 [employer] [facility] Urology Office/Clinic Noteon 05-10-2023 Urology [...] Bactrim x 3 days empirically. went to [place] ER next day bc blood persisted. CT [...] [facility] [address], [place] [address]- Additional Instructions: w/PVR Patient Education Hematuria, Adult I, Johana De Jesus , personally scribed for Dr. Marshall on 05/10/2023 11:52:58. . Portions of this record may have been created with voice recognition artificial intelligence software, specifically [employer], [employer] and or [employer]. Substitutions may have occurred due to the [...] Daily busPIRon (more content not included)... Normal [facility] Comment on above: Result Comment: Elec tronically Signed By: Rishi MARSHALL MD\.br\Date and Time Signed: 05/10/23 11:55 EST\.br\Electronically Co-Signed By: Johana De Jesus\.br\Date and Time Co-Signed: 05/10/23 11:53 EST RAD - MISCon 04-26-2023 RAD - MISC [id number]# 1.00TIFF [facility] Lab Reportson 04-15-2023 Lab Reports [id number]# 1.00TIFF Normal [facility] Operative Reporton Operative Report [id number] #1.00TIFF Normal [facility] Lab Reportson 04-08-2023 Lab Reports [id number] #1.00TIFF Normal [facility] Insurance Correspondenceon 1 05-30-2022 Insurance Correspondence [id number] 4#1.00TIFF Normal [facility] Consent for Procedure/Surger yon 03-24-2023 Consent for Procedure/Surgery [id number]#1.00TIFF Normal [facility] CT ABDOMEN PELVIS W IV [...] Jennie Hernández MD 03/11/23 Final result Normal [facility] Cult,Urineon 03-11-2023 Cult,Urine Specimen Description .CLEAN CATCH URINE Culture NO SIGNIFICANT GROWTH Report Status FINAL 03/11/2023 Normal [facility] Comment on above: Performed By: #### D DEBBI, CDP, CP, MG #### [facility] [address] [place] [address] Dr[address] [place], [place] [id number] [employer]: Cholo Alicea MD CBC with Diffon 03-10-2023 Abs. Basophil 0.05 k/uL Normal 0.00-0.20 [facility] Comment on above: Performed By: #### D DEBBI, CDP, CP, MG #### [address] [place], [place] [address]83 [employer]: Cholo Alicea MD Abs.Imm.Granulocyte <0.03 Normal 0.00-0.30 [facility] Comment on above: Performed By: #### D DEBBI, CDP, CP, MG #### [address] [place], [place] [address] [employer]: Cholo Alicea MD Abs.Neutrophil (Seg) 3.36 k/uL Normal 1.50-8.10 [facility] Comment on above: Performed By: #### D DEBBI, CDP, CP, MG #### [address] [place], [place] [address] [employer]: Cholo Alicea MD Basophils/100 WBC (Bld) 1 % Normal 0-2 M [facility] Comment on above: Performed By: #### D DEBBI, CDP, CP, MG #### [address] [place], [place] 2128083 [employer]: Cholo Alicea MD Eosinophils (Bld) [#/Vol] 0.05 10*3/uL Normal 0.00-0.44 [facility] Comment on above: Performed By: #### D DEBBI, CDP, CP, MG #### [address] [place], [facility]83 [employer]: Cholo Alicea MD Eosinophils/100 WBC (Bld) 1 % Normal 1-4 [facility] Comment on above: Performed By: #### D DEBBI, CDP, CP, MG #### [address] [place], [facility] [employer]: Cholo Alicea MD Erythrocyte distribution width (RBC) [Ratio] 11.9 % Normal 11.8-14.4 [facility] Comment on above: Performed By: #### D DEBBI, CDP, CP, MG #### [address] [place], [facility] [employer]: Cholo Alicea MD Hematocrit (Bld) [Volume fraction] 37.5 % Normal 36.3-47.1 [facility] Comment on above: Performed By: #### D DEBBI, CDP, CP, MG #### [address] [place], [facility] [employer]: Cholo Alicea MD Hemoglobin (Bld) [Mass/Vol] 12.9 g/dL Normal 11.9-15.1 [facility] Comment on above: Performed By: #### D DEBBI, CDP, CP, MG #### [address] [place], [place] [address] [employer]: Cholo Alicea MD Immature granulocytes/100 WBC (Bld) 0 % Normal 0 [facility] Comment on above: Performed By: #### D DEBBI, CDP, CP, MG #### [address] [place], [facility] [employer]: Cholo Alicea MD Lymphocytes (Bld) [#/Vol] 2.79 10*3/uL Normal 1.10-3.70 [facility] Comment on above: Performed By: #### D EDBBI, CDP, CP, MG #### [facility] [address] [place], [place] [id number] [employer]: Cholo Alicea MD Lymphocytes/100 WBC (Bld) 42 % Normal 24-43 [facility] Comment on above: Performed By: #### D DEBBI, CDP, CP, MG #### [facility] [place] [address] [place], [facility] [employer]: Cholo Alicea MD MCH (RBC) [Entitic mass] 30.4 pg Normal 25.2-33.5 [facility] Comment on above: Performed By: #### D DEBBI, CDP, CP, MG #### [address] [place], [facility] [employer]: Cholo Alicea MD MCHC (RBC) [Mass/Vol] 34.4 g/dL Normal 28.4-34.8 [facility] Comment on above: Performed By: #### D DEBBI, CDP, CP, MG #### [address] [place], [facility]83 [employer]: Cholo Alicea MD MCV (RBC) [Entitic vol] 88.2 fL Normal 82.6-102.9 [facility] Comment on above: Performed By: #### D DEBBI, CDP, CP, MG #### [address] [place], [facility]83 [employer]: Cholo Alicea MD Monocytes (Bld) [#/Vol] 0.46 10*3/uL Normal 0.10-1.20 [facility] Comment on above: Performed By: #### D DEBBI, CDP, CP, MG #### [facility] [place] [address] [place], [place] 7[address]83 [employer]: Cholo Alicea MD Monocytes/100 WBC (Bld) 7 % Normal 3-12 M [facility] Comment on above: Performed By: #### D DEBBI, CDP, CP, MG #### [facility] [address] [place], [facility]83 [employer]: Cholo Alicea MD Neutrophil (Seg) 49 % Normal 36-65 [facility] Comment on above: Performed By: #### D DEBBI, CDP, CP, MG #### [facility] [place] [address] [place], [facility]83 [employer]: Cholo Alicea MD NRBC Automated 0.0 per 100 WBC Normal 0.0 [facility] Comment on above: Performed By: #### D DEBBI, CDP, CP, MG #### [address] [place], [facility]83 [employer]: Cholo Alicea MD Platelet mean volume (Bld) [Entitic vol] 10.5 fL Normal 8.1-13.5 [facility] Comment on above: Performed By: #### D DEBBI, CDP, CP, MG #### [address] [place], [place] [address] [employer]: Cholo Alicea MD Platelets (Bld) [#/Vol] 320 10*3/uL Normal 138-453 [facility] Comment on above: Performed By: #### D DEBBI, CDP, CP, MG #### [address] [place], [place] [address] [employer]: Cholo Alicea MD RBC (Bld) [#/Vol] 4.25 10*6/uL Normal 3.95-5.11 [facility] Comment on above: Performed By: #### D DEBBI, CDP, CP, MG #### [address] [place] [address] [employer]: Cholo Alicea MD WBC (Bld) [#/Vol] 6.7 10*3/uL Normal 3.5-11.3 [facility] Comment on above: Performed By: #### D DEBBI, CDP, CP, MG #### [facility] [address] [place], [place] 408[address]83 [employer]: Cholo Alicea MD Comp Metabolic Profon 2022 Albumin [Mass/Vol] 4.6 g/dL Normal 3.5-5.2 [facility] Comment on above: Performed By: #### D DEBBI, CDP, CP, MG #### [facility] [address] [place], [place] [address]83 [employer]: Cholo Alicea MD Albumin/Glob Ratio 1.5 Normal 1.0-2.5 [facility] Comment on above: Performed By: #### D DEBBI, CDP, CP, MG #### [address] [place], [place] 9390883 [employer]: Cholo Alicea MD Alkaline Phos 72 U/L Normal 35-104 [facility] Comment on above: Performed By: #### D DEBBI, CDP, CP, MG #### [address] [place], [place] 0714483 [employer]: Cholo Alicea MD ALT [Catalytic activity/Vol] 42 U/L High 5-33 [facility] Comment on above: Performed By: #### D DEBBI, CDP, CP, MG #### [facility] [address] [place] [address] Dr[address] [place], [place] 0772083 [employer]: Cholo Alicea MD Anion gap [Moles/Vol] 11 mmol/L Normal 9-17 [facility] Comment on above: Performed By: #### D DEBBI, CDP, CP, MG #### [facility] [place] [address] [place] [address] [employer]: Cholo Alicea MD AST [Catalytic activity/Vol] 31 U/L Normal <32 [facility] Comment on above: Performed By: #### D DEBBI, CDP, CP, MG #### [facility] [address] [place], [place] 6599783 [employer]: Cholo Alicea MD Bilirubin [Mass/Vol] 0.4 mg/dL Normal 0.3-1.2 [facility] Comment on above: Performed By: #### D DEBBI, CDP, CP, MG #### [facility] [address] [place], [place] 3995283 [employer]: Cholo Alicea MD BUN/CRE Ratio 10 Normal 9-20 [facility] Comment on above: Performed By: #### D DEBBI, CDP, CP, MG #### [address] [place], [place] 8215183 [employer]: Cholo Alicea MD Calcium [Mass/Vol] 10.4 mg/dL Normal 8.6-10.4 [facility] Comment on above: Performed By: #### D DEBBI, CDP, CP, MG #### [facility] [address] [place] [address] [place], [place] 1073483 [employer]: Cholo Alicea MD Chloride [Moles/Vol] 101 mmol/L Normal 98-107 [facility] Comment on above: Performed By: #### D DEBBI, CDP, CP, MG #### [address] [place], [place] 0424283 [employer]: Cholo Alicea MD CO2 [Moles/Vol] 26 mmol/L Normal 20-31 [facility] Comment on above: Performed By: #### D DEBBI, CDP, CP, MG #### [facility] [address] [place] [address] [place], [place] 3445583 [employer]: Cholo Alicea MD Creatinine [Mass/Vol] 0.9 mg/dL Normal 0.5-0.9 [facility] Comment on above: Performed By: #### D DEBBI, CDP, CP, MG #### [facility] [address] [place] [address] [place] [address] [employer]: Cholo Alicea MD GFR/1.73 sq M.predicted among non-blacks MDRD (S/P/Bld) [Vol rate/Area] mL/min/{1.73_m2} Normal >60 [facility] Comment on above: Result Comment: These [...] D DEBBI, CDP, CP, MG #### [address] [place] [address] [employer]: Cholo Alicea MD Glucose [Mass/Vol] 97 mg/dL Normal 70-99 [facility] Comment on above: Performed By: #### D DEBBI, CDP, CP, MG #### [address] [place] [address] [employer]: Cholo Alicea MD Potassium [Moles/Vol] 4.2 mmol/L Normal 3.7-5.3 [facility] Comment on above: Performed By: #### D DEBBI, CDP, CP, MG #### [facility] [address] [place] [address] [place] [address] [employer]: Cholo Alicea MD Protein [Mass/Vol] 7.6 g/dL Normal 6.4-8.3 [facility] Comment on above: Performed By: #### D DEBBI, CDP, CP, MG #### [facility] [address] [place] [address] [place] [address] [employer]: Cholo Alicea MD Sodium [Moles/Vol] 138 mmol/L Normal 135-144 [facility] Comment on above: Performed By: #### D DEBBI, CDP, CP, MG #### [facility] [address] [place] [address] [employer]: Cholo Alicea MD Urea nitrogen [Mass/Vol] 9 mg/dL Normal 6-20 [facility] Comment on above: Performed By: #### D DEBBI, CDP, CP, MG #### [facility] [address] [place] [address] [employer]: Cholo Alicea MD Creatine Kinaseon 03-10-2023 CK [Catalytic activity/Vol] 51 U/L Normal 26-192 [facility] Comment on above: Performed By: #### D DEBBI, CDP, CP, MG #### [facility] [address] [place] [address] [employer]: Cholo Alicea MD HCG, ,Urineon 03-102 Beta HCG ( test) Ql (U) Negative Normal NEG [facility] Comment on above: Result Comment: Spec imens with hCG levels near the threshold of the test (25 mIU/mL) may give a negative or indeterminate result. In such cases, another test should be performed with a new specimen in 48-72 hours. If early is suspected clinically in this setting, correlation with quantitative serum b-hCG level is suggested. [facility] has confirmed the use of plasma for this test. This has not been cleared or approved by the U.S. Food and Drug Administration. The FDA has determined that such clearance is not necessary. Performed By: #### D DEBBI, CDP, CP, MG #### [facility] [address] [place] [address] [employer]: Cholo Alicea MD Urinalysis w/ Microon 1 Bacteria TRACE Abnormal NONE [facility] Comment on above: Performed By: #### D DEBBI, CDP, CP, MG #### [facility] [address] [place] [address] [employer]: Cholo Alicea MD Bilirubin, SemiQt,Ur Negative Normal NEG [facility] Comment on above: Performed By: #### D DEBBI, CDP, CP, MG #### [facility] [address] [place] [address] Dr[place], [place] 0209683 [employer]: Cholo Alicea MD Blood, Urine Negative Normal NEG [facility] Comment on above: Performed By: #### D DEBBI, CDP, CP, MG #### [facility] [address] [place], [place] 3759083 [employer]: Cholo Alicea MD Clarity (U) Clear Normal CLEAR [facility] Comment on above: Performed By: #### D DEBBI, CDP, CP, MG #### [address] [place], [place] 6319483 [employer]: Cholo Alicea MD Color (U) Yellow Normal YEL [facility] Comment on above: Performed By: #### D DEBBI, CDP, CP, MG #### [facility] [address] [place] [address] Dr. [place], [place] 7383183 [employer]: Cholo Alicea MD Epithelial cells LM Ql (Urine sed) 0 TO 2 Normal 0-25 [facility] Comment on above: Performed By: #### D DEBBI, CDP, CP, MG #### [facility] [address] [place] [address] Dr[place], [place] 8221083 [employer]: Cholo Alicea MD Glucose Ql (U) Negative Normal NEG [facility] Comment on above: Performed By: #### D DEBBI, CDP, CP, MG #### [facility] [address] [place] [address] [place], [place] 3368883 [employer]: Cholo Alicea MD Ketones Ql (U) Negative Normal NEG [facility] Comment on above: Performed By: #### D DEBBI, CDP, CP, MG #### [facility] [address] [place], [place] 1492883 [employer]: Cholo Alicea MD Leukocyte esterase Test strip Ql (U) Negative Normal NEG [facility] Comment on above: Performed By: #### D DEBBI, CDP, CP, MG #### [address] [place], [place] 763[address]83 [employer]: Cholo Alicea MD Nitrite,Ur Negative Normal NEG [facility] Comment on above: Performed By: #### D DEBBI, CDP, CP, MG #### [address] [place], [place] 287[address]183 [employer]: Cholo Alicea MD PH,Ur 7.5 Normal 5.0-9.0 [facility] Comment on above: Performed By: #### D DEBBI, CDP, CP, MG #### [address] [place], [place] 938[address]83 [employer]: Cholo Alicea MD Protein Ql (U) Negative Normal NEG [facility] Comment on above: Performed By: #### D DEBBI, CDP, CP, MG #### [address] [place], [place] 4369183 [employer]: Cholo Alicea MD Spec. Barnes,Ur 1.010 Normal 1.010-1.020 [facility] Comment on above: Performed By: #### D DEBBI, CDP, CP, MG #### [address] [place], [place] 3361583 [employer]: Cholo Alicea MD Urine RBC's None Normal 0-2 [facility] Comment on above: Performed By: #### D DEBBI, CDP, CP, MG #### [address] [place] [address] [employer]: Cholo Alicea MD Urine WBC's 0 TO 2 Normal 0-5 [facility] Comment on above: Performed By: #### D DEBBI, CDP, CP, MG #### [address] [place] [address] [employer]: Cholo Alicea MD Urobilinogen,Ur Normal Normal 0.0-1.0 [facility] Comment on above: Performed By: #### D DEBBI, CDP, CP, MG #### [facility] [address] [place] [address] [employer]: Cholo Alicea MD COVID + FLU Quick Testingon 02-11-2023 SARS-CoV-2 (COVID-19) RNA ALEKSANDER+probe Ql (Unsp spec) Negative [employer] Other COVID + FLU Quick Testing Negative [employer] Other Quick Strepon 02-11-2023 S. pyogenes Org specific cx Ql (Throat) Negative [employer] Other Quick Strep [employer] Other CNPNon 02-03-2023 CNPN Telephone (GASTSP) LULÚ GAITAN ([id number]) 1995 F Date Time Provider Department 02/03/23 [facility]ST[facility] During your visit today, we recorded the [...] list full name of hospital or facility)? [facility] If the patient had a gastric [...] G/J Tube?No Preferred phone number for contact: [phone] ? Viviana David 02/03/2023 3:38 PM Signed [...] Status:Closed by VIVIANA DAVID on 02/04/23 Normal [facility] Alanine aminotransferase [En zymatic activity/volume] in Serum or PlasmaOrdered By: Matthew Leslie on 02-02-2023 ALT [Catalytic activity/Vol] 38 U/L 7-52 [facility] Albumin [Mass/volume] in Ser um or Plasma by Bromocresol green (BCG) dye binding methoOrdered By: Matthew Leslie on 02-02-2023 Albumin BCG dye [Mass/Vol] 4.6 g/dL 3.5-5.7 [facility] Alkaline phosphatase [Enzyma tic activity/volume] in Serum or PlasmaOrdered By: Matthew Leslie on 02-02-2023 ALP [Catalytic activity/Vol] 54 U/L 34-104 [facility] Amphetamine Screen Ql (U)Ord ered By: Matthew Leslie on 02-02-2023 Amphetamines Ql (U) Negative Negative [facility] Aspartate aminotransferase [ Enzymatic activity/volume] in Serum or PlasmaOrdered By: Matthew Leslie on 02-02-2023 AST [Catalytic activity/Vol] 32 U/L 13-39 [facility] Automated erythrocytes count in urine sediment (number/area)Ordered By: Matthew Leslie on 02-02-2023 RBC Auto (Urine sed) [#/Area] 10-19 [HPF] 0-4 [facility] Automated leukocytes count i n urine sediment (number/area)Ordered By: Matthew Leslie on 02-02-2023 WBC Auto (Urine sed) [#/Area] 10-19 [HPF] 0-4 [facility] Automated urine hyaline cast s count (number/volume)Ordered By: Matthew Leslie on 02-02-2023 Hyaline casts Auto (U) [#/Vol] 0-1 [LPF] 0-1 [facility] Barbiturates [Presence] in U rine by Screen methodOrdered By: Matthew Leslie on 02-02-2023 Barbiturates Screen Ql (U) Negative Negative [facility] Basophils Auto (Bld) [#/Vol] Ordered By: Matthew Leslie on 02-02-2023 Basophils (Bld) [#/Vol] 0.1 10*3/uL 0.0-0.2 [facility] Basophils/100 WBC Auto (Bld) Ordered By: Matthew Leslie on 02-02-2023 Basophils/100 WBC (Bld) 0.9 % . [facility] Benzodiazepines Screen Ql (U )Ordered By: Matthew Leslie on 02-02-2023 Benzodiazepines Ql (U) Negative Negative [facility] Benzoylecgonine [Presence] i n Urine by Screen methodOrdered By: Matthew Leslie on 02-02-2023 Benzoylecgonine Screen Ql (U) Negative Negative [facility] Bilirubin Test strip Ql (U)O rdered By: Matthew Leslie on 02-02-2023 Bilirubin Ql (U) Negative Negative [facility] Bilirubin.direct [Mass/volum e] in Serum or PlasmaOrdered By: Matthew Leslie on 02-02-2023 Bilirubin.direct [Mass/Vol] 0.10 mg/dL 0.03-0.18 [facility] Bilirubin.total [Mass/volume ] in Serum or PlasmaOrdered By: Matthew Leslie on 02-02-2023 Bilirubin [Mass/Vol] 0.6 mg/dL 0.3-1.0 [facility] Calcium [Mass/volume] in Ser um or PlasmaOrdered By: Matthew Leslie on 02-02-2023 Calcium [Mass/Vol] 9.5 mg/dL 8.6-10.3 [facility] Cannabinoids [Presence] in U rine by Screen methodOrdered By: Matthew Leslie on 02-02-2023 Cannabinoids Screen Ql (U) Negative Negative [facility] Comment on above: These are unconfirme d results and should not be used for legal purposes. Drug Cut-Off Concentration: AMPH 1000 ng/mL PONCHO 200 ng/mL KRISTAN 200 ng/mL COCM 300 ng/mL OP 300 ng/mL PCP 25 ng/mL THC 20 ng/mL Carbon dioxide, total [Moles /volume] in Serum or PlasmaOrdered By: Matthew Leslie on 02-02-2023 CO2 [Moles/Vol] 28.3 mmol/L 21.0-31.0 [facility] Casts typing in urine sedime nt by light microscopyOrdered By: Matthew Leslie on 02-02-2023 Casts LM Nom (Urine sed) None seen [LPF] None Seen [facility] Chloride [Moles/volume] in S barbra or PlasmaOrdered By: Matthew Leslie on 02-02-2023 Chloride [Moles/Vol] 107 mmol/L 98-107 [facility] Color Auto (U)Ordered By: Mariela Leslie on 02-02-2023 Color (U) Yellow Yellow [facility] Creatinine [Mass/volume] in Serum or PlasmaOrdered By: Matthew Leslie on 02-02-2023 Creatinine [Mass/Vol] 1.14 mg/dL 0.60-1.20 [facility] Eosinophils Auto (Bld) [#/Vo l]Ordered By: Matthew Leslie on 02-02-2023 Eosinophils (Bld) [#/Vol] 0.0 10*3/uL 0.0-0.45 [facility] Eosinophils/100 WBC Auto (Bl d)Ordered By: Matthew Leslie on 02-02-2023 Eosinophils/100 WBC (Bld) 0.4 % . [facility] Erythrocyte distribution wid th Auto (RBC) [Ratio]Ordered By: Matthew Leslie on 02-02-2023 Erythrocyte distribution width (RBC) [Ratio] 12.9 % 11.9-15.3 [facility] Ethanol [Mass/volume] in Ser um or PlasmaOrdered By: Matthew Leslie on 02-02-2023 Ethanol [Mass/Vol] mg/dL [facility] Ethanol [Mass/Vol] TNP [facility] Comment on above: Test not performed Globulin Calc (S) [Mass/Vol] Ordered By: Matthew Leslie on 02-02-2023 Globulin (S) [Mass/Vol] 3.2 g/dL F [facility] Glucose [Mass/volume] in Ser um or PlasmaOrdered By: Matthew Leslie on 02-02-2023 Glucose [Mass/Vol] 98 mg/dL 70-100 [facility] Comment on above: ADA recommended refe rence rangeRandom Glucose Reference Range is dependent on time and content of last meal. Glucose of more than 200 mg/dL in a nonstressed, ambulatory subject supports the diagnosis of Diabetes Mellitus. HCG ( test) IApo d Ql (U)Ordered By: Matthew Leslie on 02-02-2023 HCG ( test) Ql (U) Negative [facility] Hematocrit Auto (Bld) [Volum e fraction]Ordered By: Matthew Leslie on 02-02-2023 Hematocrit (Bld) [Volume fraction] 41.1 % 34.0-46.4 [facility] Hemoglobin [Mass/volume] in BloodOrdered By: Matthew Leslie on 02-02-2023 Hemoglobin (Bld) [Mass/Vol] 13.8 g/dL 11.8-15.4 [facility] Ketones Auto test strip (U) [Mass/Vol]Ordered By: Matthew Leslie on 02-02-2023 Ketones (U) [Mass/Vol] 2+ Negative Fi [facility] Leukocytes [#/volume] correc alberto for nucleated erythrocytes in Blood by Automated counOrdered By: Matthew Leslie on 02-02-2023 WBC corrected for nucl RBC Auto (Bld) [#/Vol] 7.6 10*3/uL 3.8-11.6 [facility] Lymphocytes Auto (Bld) [#/Vo l]Ordered By: Matthew Leslie on 02-02-2023 Lymphocytes (Bld) [#/Vol] 2.7 10*3/uL 1.00-4.8 [facility] Lymphocytes/100 WBC Auto (Bl d)Ordered By: Matthew Leslie on 02-02-2023 Lymphocytes/100 WBC (Bld) 36.0 % . [facility] MCH Auto (RBC) [Entitic mass ]Ordered By: Matthew Leslie on 02-02-2023 MCH (RBC) [Entitic mass] 29.4 pg 24.7-34.3 [facility] MCHC Auto (RBC) [Mass/Vol]Or dered By: Matthew Leslie on 02-02-2023 MCHC (RBC) [Mass/Vol] 33.6 g/dL 32.0-35.0 Fir [facility] MCV Auto (RBC) [Entitic vol] Ordered By: Matthew Leslie on 02-02-2023 MCV (RBC) [Entitic vol] 87.6 fL 80-100 F [facility] Monocyte distribution width [Entitic volume] in Blood by AutomatedOrdered By: Matthew Leslie on 02-02-2023 Monocyte distribution width Auto (Bld) [Entitic vol] 17.83 % 0.00-20.00 [facility] Monocytes Auto (Bld) [#/Vol] Ordered By: Matthew Leslie on 02-02-2023 Monocytes (Bld) [#/Vol] 0.6 10*3/uL 0.0-0.8 [facility] Monocytes/100 WBC Auto (Bld) Ordered By: Matthew Leslie on 02-02-2023 Monocytes/100 WBC (Bld) 7.9 % . F [facility] Neutrophils Auto (Bld) [#/Vo l]Ordered By: Matthew Leslie on 02-02-2023 Neutrophils (Bld) [#/Vol] 4.2 10*3/uL 1.8-7.7 [facility] Neutrophils/100 WBC Auto (Bl d)Ordered By: Matthew Leslie on 02-02-2023 Neutrophils/100 WBC (Bld) 54.8 % . [facility] Nitrite Test strip Ql (U)Ord ered By: Matthew Leslie on 02-02-2023 Nitrite Ql (U) Negative Negative [facility] No Panel InformationOrdered By: Matthew Leslie on 02-02-2023 Estimated GFR (CKD-EPI) > 60.0 mL/Min [facility] Creatinine Clearance (Chem 76.05 [facility] Nucleated erythrocytes [Pres ence] in Blood by Automated countOrdered By: Matthew Leslie on 02-02-2023 Nucleated RBC Auto Ql (Bld) 0.0 /100{WBC} 0-0.5 [facility] Opiates [Presence] in Urine by Screen methodOrdered By: Matthew Leslie on 02-02-2023 Opiates Screen Ql (U) Negative Negative [facility] Phencyclidine Screen Ql (U)O rdered By: Matthew Leslie on 02-02-2023 Phencyclidine Ql (U) Negative Negative [facility] Platelet mean volume Auto (B ld) [Entitic vol]Ordered By: Matthew Leslie on 02-02-2023 Platelet mean volume (Bld) [Entitic vol] 9.2 fL 6.3-10.7 [facility] Platelets Auto (Bld) [#/Vol] Ordered By: Matthew Leslie on 02-02-2023 Platelets (Bld) [#/Vol] 322 10*3/uL 150-450 [facility] Potassium [Moles/volume] in Serum or PlasmaOrdered By: Matthew Leslie on 02-02-2023 Potassium [Moles/Vol] 3.8 mmol/L 3.5-5.1 [facility] Protein Auto test strip (U) [Mass/Vol]Ordered By: Matthew Leslie on 02-02-2023 Protein (U) [Mass/Vol] 30 mg/dL Negative [facility] Protein [Mass/volume] in Ser um or PlasmaOrdered By: Matthew Leslie on 02-02-2023 Protein [Mass/Vol] 7.8 g/dL 6.4-8.9 [facility] RBC Auto (Bld) [#/Vol]Ordere d By: Matthew Leslie on 02-02-2023 RBC (Bld) [#/Vol] 4.70 10*6/uL 3.60-5.00 [facility] Serum or plasma albumin/glob ulin mass ratioOrdered By: Matthew Leslie on 02-02-2023 Albumin/Globulin [Mass ratio] 1.4 {ratio} [facility] Serum or plasma anion gap de terminationOrdered By: Matthew Leslie on 02-02-2023 Anion gap [Moles/Vol] 9.5 mmol/L 6.0-15.0 [facility] Serum or plasma non-glucuron idated bilirubin measurement (mass/volume)Ordered By: Matthew Leslie on 02-02-2023 Bilirubin.indirect [Mass/Vol] 0.5 mg/dL [facility] Sodium [Moles/volume] in Ser um or PlasmaOrdered By: Matthew Leslie on 02-02-2023 Sodium [Moles/Vol] 141 mmol/L 136-145 [facility] Specific gravity Auto test s trip (U) [Rel density]Ordered By: Matthew Leslie on 02-02-2023 Specific gravity (U) [Rel density] 1.027 1.001-1.030 [facility] Squamous epithelial cells de tection in urine sediment by light microscopyOrdered By: Matthew Leslie on 02-02-2023 Epithelial cells.squamous LM Ql (Urine sed) 3-4 [HPF] 0-2 [facility] Thyrotropin [Units/volume] i n Serum or PlasmaOrdered By: Matthew Leslie on 02-02-2023 TSH Qn 3.74 m[IU]/L 0.45-5.33 [facility] Urea nitrogen [Mass/volume] in Serum or PlasmaOrdered By: Matthew Leslie on 02-02-2023 Urea nitrogen [Mass/Vol] 11 mg/dL 7-25 [facility] Urine bacteria detection by automated methodOrdered By: Matthew Leslie on 02-02-2023 Bacteria Auto Ql (U) 1+ None Seen [facility] Urine clarity by refractomet ry automatedOrdered By: Matthew Leslie on 02-02-2023 Clarity Refractometry automated (U) Cloudy Clear [facility] Urine culture routineOrdered By: Matthew Leslie on 02-02-2023 Bacteria identified Cx Nom (U) No Growth 2 Days [facility] Urine glucose measurement by automated test strip (mass/volume)Ordered By: Matthew Leslie on 02-02-2023 Glucose Auto test strip (U) [Mass/Vol] Normal mg/dL Normal [facility] Urine hemoglobin detection b y automated test stripOrdered By: Matthew Leslie on 02-02-2023 Hemoglobin Auto test strip Ql (U) 3+ Negative [facility] Urine leukocyte esterase det ection by automated test stripOrdered By: Matthew Leslie on 02-02-2023 Leukocyte esterase Auto test strip Ql (U) 2+ Negative [facility] Urobilinogen Auto test strip (U) [Mass/Vol]Ordered By: Matthew Leslie on 02-02-2023 Urobilinogen (U) [Mass/Vol] Normal mg/dL Normal [facility] Vitamin D+Metabolites [Mass/ volume] in Serum or PlasmaOrdered By: Matthew Leslie on 02-02-2023 Vitamin D+Metabolites [Mass/Vol] 54.2 ng/mL 30-100 [facility] Comment on above: VITAMIN D STATUS 25( [place])VITAMIN D RANGE (ng/mL) Deficient <20 Insufficient 20 to <30Sufficient 30 to 100Reference: Miri MF,Nimisha MCLAIN, Luisa MCCRACKEN, et al. Evaluation,treatment, and prevention of vitamin D deficiency; an Endocrine Society clinical practice guideline. JCEM. 2010; 96(7):1911-30. WBC Auto (Bld) [#/Vol]Ordere d By: Matthew Lelsie on 02-02-2023 WBC (Bld) [#/Vol] 7.6 10*3/uL 3.8-11.6 [facility] Yeast detection in urine sed iment by light microscopyOrdered By: Matthew Leslie on 02-02-2023 Yeast LM Ql (Urine sed) None seen [HPF] None Se en [facility] pH Auto test strip (U)Ordere d By: Matthew Leslie on 02-02-2023 pH (U) 6.0 [pH] 5.0-9.0 [facility] AMNISUREon 09-16-2022 AMNISURE Positive Abnormal NEGATIVE [facility] Comment on above: Performed By: #### A MNI #### [facility] [address] [place] [address] Dr. Adrianna Caldera CBC AUTO DIFFon 09-16-2022 BASO # 0.1 103/ul Normal 0.0-0.1 [facility] Comment on above: Performed By: #### C BC #### [facility] [address] [place] [address] Dr. Adrianna Caldera Basophils/100 WBC (Bld) 0.4 % Normal 0.2-2.0 [facility] Comment on above: Performed By: #### C BC #### [facility] [address] [place] [address] Dr. Adrianna Caldera EO # 0.0 103/ul Normal 0.0-0.7 [facility] Comment on above: Performed By: #### C BC #### [facility] [address] [place] [address] Dr. Adrianna Caldera Eosinophils/100 WBC (Bld) 0.1 % Critically low 0.9-7.0 [facility] Comment on above: Performed By: #### C BC #### [facility] [address] [place] [address] Dr. Adrianna Caldera Erythrocyte distribution width (RBC) [Ratio] 12.3 % Normal 11.0-15.0 [facility] Comment on above: Performed By: #### C BC #### [facility] [address] [place] [address] Dr. Adrianna Caldera Hematocrit (Bld) [Volume fraction] 38.3 % Normal 36.0-48.0 [facility] Comment on above: Performed By: #### C BC #### [facility] [address] [place] [address] Dr. Adrianna Caldera Hemoglobin (Bld) [Mass/Vol] 12.8 g/dL Normal 12.0-16.0 [facility] Comment on above: Performed By: #### C BC #### [facility] [address] [place] [address] Dr. Adrianna Caldera IG # 0.20 10e3/ul Critically high 0.00-0.03 [facility] Comment on above: Performed By: #### C BC #### [facility] [address] [place] [address] Dr. Adrianna Caldera IG % 1.0 % Critically high 0.0-0.5 [facility] Comment on above: Performed By: #### C BC #### [facility] [address] [place] [address] Dr. Adrianna Caldera LYMPH # 1.5 103/ul Normal 1.2-3.8 [facility] Comment on above: Performed By: #### C BC #### [facility] [address] [place] [address] Dr. Adrianna Caldera Lymphocytes/100 WBC (Bld) 7.7 % Critically low 20.5-60.0 [facility] Comment on above: Performed By: #### C BC #### [facility] [address] [place] [address] Dr. Adrianna Caldera MANUAL DIFF REQ NO Normal [facility] Comment on above: Performed By: #### C BC #### [facility] [address] [place] [address] Dr. Adrianna Caldera MCH (RBC) [Entitic mass] 28.9 pg Normal 26.7-34.0 [facility] Comment on above: Performed By: #### C BC #### [facility] [address] [place] [address] Dr. Adrianna Caldera MCHC (RBC) [Mass/Vol] 33.4 g/dL Normal 29.9-35.2 [facility] Comment on above: Performed By: #### C BC #### [facility] [address] [place] [address] Dr. Adrianna Caldera MCV (RBC) [Entitic vol] 86.5 fL Normal 81.0-99.0 [facility] Comment on above: Performed By: #### C BC #### [facility] [address] [place] [address] Dr. Adrianna Caldera MONO # 0.3 103/ul Normal 0.3-0.8 [facility] Comment on above: Performed By: #### C BC #### [facility] [address] [address] [address] Adrianna Caldera Monocytes/100 WBC (Bld) 1.7 % Normal 1.7-12.0 [facility] Comment on above: Performed By: #### C BC #### [facility] [address] [place] [address] Dr. Adrianna Caldera NEUT # 17.5 103/ul Critically high 1.4-6.5 [facility] Comment on above: Performed By: #### C BC #### [facility] [address] [place] [address] Dr. Adrianna Caldera Neutrophils/100 WBC (Bld) 89.1 % Critically high 43.0-75.0 [facility] Comment on above: Performed By: #### C BC #### [facility] [address] [place] [address] Dr. Adrianna Caldera Platelet mean volume (Bld) [Entitic vol] 10.7 fL Normal 9.5-13.5 [facility] Comment on above: Performed By: #### C BC #### [facility] [address] [place] [address] Dr. Adrianna Caldera PLT 356 103/ul Normal 150-450 [facility] Comment on above: Performed By: #### C BC #### [facility] [address] [place] [address] Dr. Adrianna Caldera RBC 4.43 106/ul Normal 4.20-5.40 [facility] Comment on above: Performed By: #### C BC #### [facility] [address] [place] [address] Dr. Adrianna Caldera WBC 19.6 103/ul Critically high 4.0-11.0 [facility] Comment on above: Performed By: #### C BC #### [facility] [address] [place] [address] Dr. Adrianna Caldera UA (CLEAN/CATCH) COURT INTERPRETER/MICRO I F IND.on 09-16-2022 Bilirubin Ql (U) Negative Normal NEGATIVE [facility] Comment on above: Performed By: #### U ACSIND #### [facility] [address] [address] [address] Adrianna Caldera Clarity (U) CLEAR Normal CLEAR [facility] Comment on above: Performed By: #### U ACSIND #### [facility] [address] [address] [address] Adrianna Caldera Color (U) LT. YELLOW Normal YELLOW [facility] Comment on above: Performed By: #### U ACSIND #### [facility] [address] [address] [address] Adrianna Caldera Glucose Ql (U) Negative Normal NEGATIVE [facility] Comment on above: Performed By: #### U ACSIND #### [facility] [address] [place] [address] Dr. Adrianna Caldera Hemoglobin Ql (U) Negative Normal NEGATIVE [facility] Comment on above: Performed By: #### U ACSIND #### [facility] [address] [address] [address] Adrianna Caldera Ketones Ql (U) Negative Normal NEGATIVE [facility] Comment on above: Performed By: #### U ACSIND #### [facility] [address] [address] [address] Adrianna Caldera LEUKOCYTES Negative Normal NEGATIVE [facility] Comment on above: Performed By: #### U ACSIND #### [facility] [address] [address] [address] Adrianna Caldera Nitrite Ql (U) Negative Normal NEGATIVE [facility] Comment on above: Performed By: #### U ACSIND #### [facility] [address] [address] [address] Adrianna Caldera pH (U) 5.5 [pH] Normal 5-9 [facility] Comment on above: Performed By: #### U ACSIND #### [facility] [address] [place] [address] Dr. Adrianna Caldera SPEC GRAVITY 1.010 Normal 1.005-<=1.0 25 [facility] Comment on above: Performed By: #### U ACSIND #### [facility] [address] [address] [address] Adrianna Caldera UA PROTEIN Negative Normal NEGATIVE/ TRACE [facility] Comment on above: Performed By: #### U ACSIND #### [facility] [address] [address] [address] Adrianna Caldera UR MICRO IND NOT INDICATED Normal [facility] Comment on above: Performed By: #### U ACSIND #### [facility] [address] [address] [address] Adrianna Caldera Urobilinogen Qn (U) 0.2 {Micheal'U}/dL Normal 0.2 - 1. 0 [facility] Comment on above: Performed By: #### U ACSIND #### [facility] [address] [address] [address] Adrianna Caldera US PREG GROWTHon 09-16-2022 [...] Date: 2022-09-16 15:19 Normal [facility] UA (CLEAN/CATCH) COURT INTERPRETER/MICRO I F IND.on 09-04-2022 Bilirubin Ql (U) Negative Normal NEGATIVE [facility] Comment on above: Performed By: #### U ACSIND ####[facility] [address] [address]Dr. Adrianna Caldera Clarity (U) CLEAR Normal CLEAR [facility] Comment on above: Performed By: #### U ACSIND ####[facility] [address] [place], [place] [address]Dr. Adrianna Caldera Color (U) LT. YELLOW Normal YELLOW [facility] Comment on above: Performed By: #### U ACSIND ####[facility] [address] [place], [place] [address]Dr. Adrianna Caldera Glucose Ql (U) Negative Normal NEGATIVE [facility] Comment on above: Performed By: #### U ACSIND ####[facility] [address] [place], [place] [address]Dr. Adrianna Caldera Hemoglobin Ql (U) Negative Normal NEGATIVE [facility] Comment on above: Performed By: #### U ACSIND ####[facility] [address] [place], [place] [address]Dr. Adrianna Caldera Ketones Ql (U) Negative Normal NEGATIVE [facility] Comment on above: Performed By: #### U ACSIND ####[facility] [address] [place], [place] [address]Dr. Adrianna Caldera LEUKOCYTES Negative Normal NEGATIVE [facility] Comment on above: Performed By: #### U ACSIND ####[facility] [address] [place], [place] [address]Dr. Adrianna Caldera Nitrite Ql (U) Negative Normal NEGATIVE [facility] Comment on above: Performed By: #### U ACSIND ####[facility] [address] [place], [place] [address]Dr. Adrianna Caldera pH (U) 7.5 [pH] Normal 5-9 [facility] Comment on above: Performed By: #### U ACSIND ####[facility] [address] [place], [place] [address]Dr. Adrianna Caldera SPEC GRAVITY 1.010 Normal 1.005-<=1.0 25 [facility] Comment on above: Performed By: #### U ACSIND ####[facility] [address] [place], [place] [address]Dr. Adrianna Caldera UA PROTEIN Negative Normal NEGATIVE/ TRACE [facility] Comment on above: Performed By: #### U ACSIND ####[facility] [address] [address]Dr. Adrianna Caldera UR MICRO IND NOT INDICATED Normal [facility] Comment on above: Performed By: #### U ACSIND ####[facility] [address] [address]Dr. Adrianna Werner Urobilinogen Qn (U) 0.2 {Micheal'U}/dL Normal 0.2 - 1. 0 [facility] Comment on above: Performed By: #### U ACSIND ####[facility] [address] [address]Dr. Adrianna Werner GTT 3 HR PREGon 08-30-2022 Glucose [Mass/Vol] 88 mg/dL Normal 74-106 [facility] Comment on above: Performed By: #### G TT3P ####[facility] [address] [place], [place] [address]Dr. Adrianna Caldera Glucose [Mass/Vol] 167 mg/dL Normal [facility] Comment on above: Performed By: #### G TT3P ####[facility] [address] [place], [place] [address]Dr. Adrianna Caldera Glucose [Mass/Vol] 136 mg/dL Normal [facility] Comment on above: Performed By: #### G TT3P ####[facility] [address] [place], [place] [address]Dr. Adrianna Caldera Glucose [Mass/Vol] 144 mg/dL Normal [facility] Comment on above: Performed By: #### G TT3P ####[facility] [address] [place], [place] [address]Dr. Adrianna Werner US PREG PLACENTAon US PREG PLACENTA EXAMINATION: [...] Date: 2022-08-17 15:46 Normal [facility] UA (CLEAN/CATCH) COURT INTERPRETER/MICRO I F IND.on 07-21-2022 Bilirubin Ql (U) Negative Normal NEGATIVE [facility] Comment on above: Performed By: #### U ACSIND ####[facility] [address] [place], [place] [address]Dr. Jemimabenito Caldera Clarity (U) CLEAR Normal CLEAR [facility] Comment on above: Performed By: #### U ACSIND ####[facility] [address] [place], [place] [address]Dr. Jemimabenito Caldera Color (U) LT. YELLOW Normal YELLOW [facility] Comment on above: Performed By: #### U ACSIND ####[facility] [address] [place], [place] [address]Dr. Adrianna Caldera Glucose Ql (U) Negative Normal NEGATIVE [facility] Comment on above: Performed By: #### U ACSIND ####[facility] [address] [place], [place] [address]Dr. Jemimabenito Caldera Hemoglobin Ql (U) Negative Normal NEGATIVE [facility] Comment on above: Performed By: #### U ACSIND ####[facility] [address] [place], [place] [address]Dr. Adrianna Caldera Ketones Ql (U) Negative Normal NEGATIVE [facility] Comment on above: Performed By: #### U ACSIND ####[facility] [address] [place], [place] [address]Dr. Jemimalan Caldera LEUKOCYTES Negative Normal NEGATIVE [facility] Comment on above: Performed By: #### U ACSIND ####[facility] [address] [place], [place] [address]Dr. Adrianna Caldera Nitrite Ql (U) Negative Normal NEGATIVE [facility] Comment on above: Performed By: #### U ACSIND ####[facility] [address] [place], [place] [address]Dr. Adrianna Caldera pH (U) 7.0 [pH] Normal 5-9 [facility] Comment on above: Performed By: #### U ACSIND ####[facility] [address] [id number]. Adrianna Caldera SPEC GRAVITY 1.010 Normal 1.005-<=1.0 25 [facility] Comment on above: Performed By: #### U ACSIND ####[facility] [address] [id number]. Jemimabenito Caldera UA PROTEIN Negative Normal NEGATIVE/ TRACE [facility] Comment on above: Performed By: #### U ACSIND ####[facility] [address] [address]Dr. Adrianna Caldera UR MICRO IND NOT INDICATED Normal [facility] Comment on above: Performed By: #### U ACSIND ####[facility] [address] [id number]. Adrianna Caldera Urobilinogen Qn (U) 0.2 {Micheal'U}/dL Normal 0.2 - 1. 0 [facility] Comment on above: Performed By: #### U ACSIND ####[facility] [address] [id number]. Adrianna Caldera US PREG ANATOMY SINGLEon US [...] by: KAROL SIDDIQUI Date: 2022-07-21 16:41 Normal [facility] PAP ACOG PANEL 2: 21 to 31on 07-12-2022 . . Normal [facility] Comment on above: Performed By: #### [id number] ####[facility] [address] [address]DrAung Caldera Age Gdln ACOG Testing 21-29 [facility] Comment on above: Performed By: #### [id number] ####[facility] [address] [address]DrAung Caldera DIAGNOSIS: Comment [facility] Comment on above: Result Comment: NEGA TIVE FOR INTRAEPITHELIAL LESION OR MALIGNANCY. Performed By: #### [id number] ####[facility] [address] [address]DrAung Caldera Methodology: Comment [facility] Comment on above: Result Comment: This liquid based ThinPrep(R) pap test was screened with the use of an image guided system. Performed By: #### [id number] ####[facility] [address] [address]DrAung Caldera Note: Comment [facility] Comment on above: Result Comment: The Pap smear is a screening test designed to aid in the detection of premalignant and malignant conditions of the uterine cervix. It is not a diagnostic procedure and should not be used as the sole means of detecting cervical cancer. Both false-positive and false-negative reports do occur. . Performed By: #### [id number] ####[facility] [address] [address]Dr. Adrianna Caldera Performed by: Comment Normal [facility] Comment on above: Result Comment: [employer]ructional [employer]er ([employer]) Performed By: #### [id number] ####[facility] [address] [address]Dr. Adrianna Caldera Reflex Criteria: Comment Normal [facility] Comment on above: Result Comment: The HPV DNA reflex criteria were not met with this specimen result therefore, no HPV testing was performed. . Performed By: #### [id number] ####[facility] [address] [address]Dr. Adrianna Caldera Specimen adequacy: Comment Normal [facility] Comment on above: Result Comment: Sati sfactory for evaluation. No endocervical component is identified. Performed By: #### [id number] ####[facility] [facility] [id number] [address]Dr. Adrianna Caldera CHLAMYDIA/GONOCOCCUS ALEKSANDER (SW AB/URINE/PAPon 07-07-2022 Chlamydia trachomatis, ALEKSANDER Negative Normal Negative [facility] Comment on above: Performed By: #### C T/NGNA ####[facility] [id number] [address]Dr. Adrianna Caldera Neisseria gonorrhoeae, ALEKSANDER Negative Normal Negative [facility] Comment on above: Performed By: #### C T/NGNA ####[facility] [id number] [address]Dr. Adrianna Caldera VAGINITIS/VAGINOSIS DNA PROB Scott 07-07-2022 Sherley species Negative Normal Negative [facility] Comment on above: Performed By: #### U ACSIND #### [facility] [address] [address] [address] Adrianna Caldera Gardnerella vaginalis Negative Normal Negative [facility] Comment on above: Performed By: #### U ACSIND #### [facility] [address] [address] [address] Adrianna Caldera Trichomonas vaginalis Negative Normal Negative [facility] Comment on above: Performed By: #### U ACSIND #### [facility] [address] [address] [address] Adrianna Caldera ABO/RHon 06-30-2022 ABO/Rh Negative [facility] CBC with Auto Differentialon 06-30-2022 Absolute Eos # 0.06 [facility] Absolute Immature Granulocyte 0.07 [facility] Absolute Lymph # 2.91 [facility] Absolute [place] # 0.66 [facility] Basophils (Bld) [#/Vol] 0.04 10*3/uL [facility] Basophils/100 WBC (Bld) 0 % 0 - 2 % [facility] ON [facility] Eosinophils/100 WBC (Bld) 1 % 1 - 4 % [facility] Hematocrit (Bld) [Volume fraction] 35.2 % Low 36.3 - 47.1 % [facility] Hemoglobin (Bld) [Mass/Vol] 11.9 g/dL 11.9 - 15.1 g/dL [facility] Immature granulocytes/100 WBC (Bld) 1 % High 0 [facility] Interpretation and review of laboratory results Abnormal [facility] Lymphocytes/100 WBC (Bld) 24 % 24 - 43 % [facility] MCH (RBC) [Entitic mass] 30.7 pg 25.2 - 33.5 pg [facility] MCHC (RBC) [Mass/Vol] 33.8 g/dL 28.4 - 34.8 g/dL [facility] MCV (RBC) [Entitic vol] 91.0 fL 82.6 - 102.9 fL [facility] Monocytes/100 WBC (Bld) 5 % 3 - 12 % B ON [facility] NRBC Automated 0.0 0.0 per 100 WBC [facility] Platelet distribution width (Bld) [Ratio] 12.2 % 11.8 - 14.4 % [facility] Platelet mean volume (Bld) [Entitic vol] 10.5 fL 8.1 - 13.5 fL [facility] Platelets (Bld) [#/Vol] 301 10*3/uL [facility] RBC (Bld) [#/Vol] 3.87 10*6/uL Low 3.95 - 5.1 1 m/uL [facility] Segmented neutrophils/100 WBC (Bld) 69 % High 36 - 65 % [facility] Segs Absolute 8.40 High [facility] WBC (Bld) [#/Vol] 12.1 10*3/uL High [facility] CMPon 06-30-2022 Albumin [Mass/Vol] 3.6 g/dL 3.5 - 5.2 g/dL [facility] Albumin/Globulin [Mass ratio] 1.1 {ratio} 1.0 - 2.5 [facility] ALP [Catalytic activity/Vol] 74 U/L 35 - 104 U/L [facility] ALT [Catalytic activity/Vol] 9 U/L 5 - 33 U/L [facility] Anion gap [Moles/Vol] 13 mmol/L 9 - 17 mmol/L [facility] AST [Catalytic activity/Vol] 18 U/L NINF - 32 U/L [facility] Bilirubin [Mass/Vol] mg/dL Low 0.3 - 1 .2 mg/dL [facility] Calcium [Mass/Vol] 9.5 mg/dL 8.6 - 10. 4 mg/dL [facility] Chloride [Moles/Vol] 101 mmol/L 98 - 10 7 mmol/L [facility] CO2 [Moles/Vol] 21 mmol/L 20 - 31 mmol/L [facility] Creatinine [Mass/Vol] 0.55 mg/dL 0.50 - 0.90 mg/dL [facility] GFR/1.73 sq M.predicted MDRD (S/P/Bld) [Vol rate/Area] - PINF [facility] Comment on above: These results are [...] [Mass/Vol] 84 mg/dL 70 - 99 mg/dL [facility] Interpretation and review of laboratory results Abnormal [facility] Potassium [Moles/Vol] 3.8 mmol/L 3.7 - 5.3 mmol/L [facility] Protein [Mass/Vol] 6.9 g/dL 6.4 - 8.3 g/dL [facility] Sodium [Moles/Vol] 135 mmol/L 135 - 144 mmol/L [facility] Urea nitrogen [Mass/Vol] 8 mg/dL 6 - 20 mg/dL [facility] Urea nitrogen/Creatinine (Bld) [Mass ratio] 15 9 - 20 [facility] Lipaseon 06-30-2022 Lipase [Catalytic activity/Vol] 30 U/L 13 - 60 U/L [facility] Microscopic Urinalysison Bacteria, UA 2+ Abnormal None [facility] Epithelial Cells UA 0 TO 2 [facility] Interpretation and review of laboratory results Abnormal [facility] Mucus, UA 3+ Abnormal None [facility] RBC clumps Auto (Urine sed) [#/Area] 0 TO 2 [facility] WBC, UA 0 TO 2 [facility] Protime-INRon 06-30-2022 INR Coag (PPP) [Relative time] 1.0 {INR} [facility] Comment on above: Therapeutic Range: Moderate Anticoagulant Intensity: INR = 2.0-3.0 High Anticoagulant Intensity: INR = 2.5-3.5 PT Coag (PPP) [Time] 13.3 s [facility] Urinalysis with Reflex to Cu ltureon 06-30-2022 Bilirubin Urine Negative NEGATIVE [facility] Color, UA Yellow Yellow [facility] Glucose Auto test strip (U) [Mass/Vol] Negative NEGATIVE [facility] Interpretation and review of laboratory results Abnormal [facility] Ketones (U) [Mass/Vol] Negative NEGATIVE [facility] Leukocyte esterase Auto test strip Ql (U) Negative NEGATIVE [facility] Nitrite Auto test strip Ql (U) Negative NEGATIVE [facility] Protein (U) [Mass/Vol] 6.0 mg/dL 5.0 - 9.0 [facility] Protein (U) [Mass/Vol] Negative NEGATIVE [facility] Specific Barnes, UA 1.025 High 1.010 - 1.020 [facility] Turbidity UA Clear Clear [facility] Urine Hgb Negative NEGATIVE [facility] Urobilinogen, Urine Normal Normal [facility] No Panel Informationon 06-17 Body mass index (BMI) [Percentile] Per age and sex 0.1 {percentile} Invalid Interpretation Code [facility] [employer] [id number] Per age and sex 0.1 {percentile} Invalid Interpretation Code [employer] [employer] HEP B SURFACE ANTIGEN SCREEN on 06-08-2022 HBsAg Screen Negative Normal Negative [facility] Comment on above: Performed By: #### U ACSIND #### [facility] [address] [address] [address] Adrianna Caldera HEPATITIS C VIRUS AB W/ REFL EX QUANTon 06-08-2022 HCV AB <0.1 Normal 0.0-0.9 [facility] Comment on above: Performed By: #### U ACSIND #### [facility] [address] [address] [address] Adrianna Caldera Interpretation: Comment Normal [facility] Comment on above: Result Comment: Nega tive Not infected with HCV, unless recent infection is suspected or other evidence exists to indicate HCV infection. Performed By: #### U ACSIND #### [facility] [address] [address] [address] Adrianna Caldera HIV 1 AND 2 WITH REFLEXon HIV Screen 4th Generation wRfx Non-Reactive Normal Non Reactive [facility] Comment on above: Result Comment: HIV Negative HIV-1/HIV-2 antibodies and HIV-1 p24 antigen were NOT detected. There is no laboratory evidence of HIV infection. Performed By: #### U ACSIND #### [facility] [address] [place] [address] Dr. Adrianna Caldera RPR QUANTon 06-08-2022 Rapid Plasma Reagin, Quant Non-Reactive Normal NonRea<1:1 [facility] Comment on above: Result Comment: Plea se Note: This test does not meet current guidelines for screening and diagnosis of syphilis. This test is intended for following treatment response in patients being treated for syphilis infection. To screen for syphilis infection, a reflex cascade that includes both RPR and a treponema-specific assay should be utilized, such as Treponema pallidum (Syphilis) Screening [place] (787431) or Rapid Plasma Reagin (RPR) Test With Reflex to Quantitative RPR and Confirmatory Treponema pallidum Antibodies (135393). Performed By: #### U ACSIND #### [facility] [address] [place] [address] Dr. Adrianna Caldera RUBELLA AB IGGon 06-08-2022 Rubella Antibodies, IgG 4.69 index Normal Immu ne >0.99 [facility] Comment on above: Result Comment: Non- immune <0.90 Equivocal 0.90 - 0.99 Immune >0.99 Performed By: #### R UBIGG ####[facility] [id number] [address]Dr. Adrianna Caldera CBC AUTO DIFFon 06-05-2022 BASO # 0.0 103/ul Normal 0.0-0.1 [facility] Comment on above: Performed By: #### C BC #### [facility] [address] [place] [address] Dr. Adrianna Caldera Basophils/100 WBC (Bld) 0.3 % Normal 0.2-2.0 [facility] Comment on above: Performed By: #### C BC #### [facility] [address] [place] [address] Dr. Adrianna Caldera EO # 0.1 103/ul Normal 0.0-0.7 [facility] Comment on above: Performed By: #### C BC #### [facility] [address] [place] [address] Dr. Adrianna Caldera Eosinophils/100 WBC (Bld) 0.6 % Critically low 0.9-7.0 [facility] Comment on above: Performed By: #### C BC #### [facility] [address] [place] [address] Dr. Adrianna Caldera Erythrocyte distribution width (RBC) [Ratio] 11.7 % Normal 11.0-15.0 [facility] Comment on above: Performed By: #### C BC #### [facility] [address] [place] [address] Dr. Adrianna Caldera Hematocrit (Bld) [Volume fraction] 33.8 % Critically low 36.0-48.0 [facility] Comment on above: Performed By: #### C BC #### [facility] [address] [place] [address] Dr. Adrianna Caldera Hemoglobin (Bld) [Mass/Vol] 12.6 g/dL Normal 12.0-16.0 [facility] Comment on above: Performed By: #### C BC #### [facility] [address] [place] [address] Dr. Adrianna Caldera IG # 0.05 10e3/ul Critically high 0.00-0.03 [facility] Comment on above: Performed By: #### C BC #### [facility] [address] [place] [address] Dr. Adrianna Caldera IG % 0.4 % Normal 0.0-0.5 [facility] Comment on above: Performed By: #### C BC #### [facility] [address] [place] [address] Dr. Adrianna Caldera LYMPH # 2.4 103/ul Normal 1.2-3.8 [facility] Comment on above: Performed By: #### C BC #### [facility] [address] [place] [address] Dr. Adrianna Caldera Lymphocytes/100 WBC (Bld) 21.1 % Normal 20.5-60.0 [facility] Comment on above: Performed By: #### C BC #### [facility] [address] [place] [address] Dr. Adrianna Caldera MANUAL DIFF REQ NO Normal [facility] Comment on above: Performed By: #### C BC #### [facility] [address] [place] [address] Dr. Adrianna Caldera MCH (RBC) [Entitic mass] 30.3 pg Normal 26.7-34.0 [facility] Comment on above: Performed By: #### C BC #### [facility] [address] [place] [address] Dr. Adrianna Caldera MCHC (RBC) [Mass/Vol] 37.3 g/dL Critically high 29.9-35.2 [facility] Comment on above: Performed By: #### C BC #### [facility] [address] [place] [address] Dr. Adrianna Caldera MCV (RBC) [Entitic vol] 81.3 fL Normal 81.0-99.0 [facility] Comment on above: Performed By: #### C BC #### [facility] [address] [place] [address] Dr. Adrianna Caldera MONO # 0.6 103/ul Normal 0.3-0.8 [facility] Comment on above: Performed By: #### C BC #### [facility] [address] [place] [address] Dr. Adrianna Caldera Monocytes/100 WBC (Bld) 5.4 % Normal 1.7-12.0 [facility] Comment on above: Performed By: #### C BC #### [facility] [address] [place] [address] Dr. Adrianna Caldera NEUT # 8.3 103/ul Critically high 1.4-6.5 [facility] Comment on above: Performed By: #### C BC #### [facility] [address] [place] [address] Dr. Adrianna Caldera Neutrophils/100 WBC (Bld) 72.2 % Normal 43.0-75.0 [facility] Comment on above: Performed By: #### C BC #### [facility] [address] [place] [address] Dr. Adrianna Caldera Platelet mean volume (Bld) [Entitic vol] 10.6 fL Normal 9.5-13.5 [facility] Comment on above: Performed By: #### C BC #### [facility] [address] [address] [address] Adrianna Caldera PLT 253 103/ul Normal 150-450 [facility] Comment on above: Performed By: #### C BC #### [facility] [address] [address] [address] Adrianna Caldera RBC 4.16 106/ul Critically low 4.20-5.40 [facility] Comment on above: Performed By: #### C BC #### [facility] [address] [address] [address] Adrianna Caldera WBC 11.6 103/ul Critically high 4.0-11.0 [facility] Comment on above: Performed By: #### C BC #### [facility] [address] [address] [address] Adrianna Caldera CULTURE URINEon 06-05-2022 CULTURE URINE Culture Observations: LIGHT GROWTH OF MIXED GENITAL JIGAR. NO POTENTIAL PATHOGENS SEEN. Normal [facility] Comment on above: Performed By: #### U RCX ####[facility] [id number] [address]Dr. Adrianna Caldera GLYCOHEMOGLOBIN A1Con 2022 ADA RECOMMENDATION SEE BELOW Normal [facility] Comment on above: Result Comment: ADA RECOMMENDED LIMIT 4.0 - 6.0 ADA THERAPEUTIC TARGET < 7.0 ACTION SUGGESTED > 7.0 Performed By: #### P REGQNT #### [facility] [address] [address] [address] Adrianna Caldera Glucose [Mass/Vol] 105 mg/dL Normal [facility] Comment on above: Performed By: #### P REGQNT #### [facility] [address] [address] [address] Adrianna Caldera HbA1c (Bld) [Mass fraction] 5.3 % Normal 4.5-6.2 [facility] Comment on above: Performed By: #### P REGQNT #### [facility] [address] [place], [place] [address] Dr. Adrianna Caldera TYPE AND SCREENon 06-05-2022 TYPE AND SCREEN Negative Normal [facility] Comment on above: Performed By: #### T NS ####[facility] [id number] [place], [place] [address]JoDr. Adrianna Caldera US PREG <14 WKSon 05-27-2022 [...] Date: 2022-05-26 22:31 Normal [facility] CBC AUTO DIFFon 05-26-2022 BASO # 0.1 103/ul Normal 0.0-0.1 [facility] Comment on above: Performed By: #### U ACSIND #### [facility] [address] [place], [place] [address] Dr. Adrianna Caldera Basophils/100 WBC (Bld) 0.5 % Normal 0.2-2.0 [facility] Comment on above: Performed By: #### U ACSIND #### [facility] [address] [place] [address] Dr. Adrianna Caldera EO # 0.1 103/ul Normal 0.0-0.7 [facility] Comment on above: Performed By: #### U ACSIND #### [facility] [address] [place] [address] Dr. Adrianna Caldera Eosinophils/100 WBC (Bld) 0.5 % Critically low 0.9-7.0 [facility] Comment on above: Performed By: #### U ACSIND #### [facility] [address] [place] [address] Dr. Adrianna Caldera Erythrocyte distribution width (RBC) [Ratio] 11.9 % Normal 11.0-15.0 [facility] Comment on above: Performed By: #### U ACSIND #### [facility] [address] [place] [address] Dr. Adrianna Caldera Hematocrit (Bld) [Volume fraction] 37.5 % Normal 36.0-48.0 [facility] Comment on above: Performed By: #### U ACSIND #### [facility] [address] [place] [address] Dr. Adrianna Caldera Hemoglobin (Bld) [Mass/Vol] 12.8 g/dL Normal 12.0-16.0 [facility] Comment on above: Performed By: #### U ACSIND #### [facility] [address] [place] [address] Dr. Adrianna Caldera IG # 0.04 10e3/ul Critically high 0.00-0.03 [facility] Comment on above: Performed By: #### U ACSIND #### [facility] [address] [place] [address] Dr. Adrianna Caldera IG % 0.4 % Normal 0.0-0.5 [facility] Comment on above: Performed By: #### U ACSIND #### [facility] [address] [place] [address] Dr. Adrianna Caldera LYMPH # 3.0 103/ul Normal 1.2-3.8 [facility] Comment on above: Performed By: #### U ACSIND #### [facility] [address] [place] [address] Dr. Adrianna Caldera Lymphocytes/100 WBC (Bld) 27.0 % Normal 20.5-60.0 [facility] Comment on above: Performed By: #### U ACSIND #### [facility] [address] [place] [address] Dr. Adrianna Caldera MANUAL DIFF REQ NO Normal [facility] Comment on above: Performed By: #### U ACSIND #### [facility] [address] [place] [address] Dr. Adrianna Caldera MCH (RBC) [Entitic mass] 29.8 pg Normal 26.7-34.0 [facility] Comment on above: Performed By: #### U ACSIND #### [facility] [address] [place] [address] Dr. Adrianna Caldera MCHC (RBC) [Mass/Vol] 34.1 g/dL Normal 29.9-35.2 [facility] Comment on above: Performed By: #### U ACSIND #### [facility] [address] [place] [address] Dr. Adrianna Caldera MCV (RBC) [Entitic vol] 87.4 fL Normal 81.0-99.0 [facility] Comment on above: Performed By: #### U ACSIND #### [facility] [address] [place] [address] Dr. Adrianna Caldera MONO # 0.7 103/ul Normal 0.3-0.8 [facility] Comment on above: Performed By: #### U ACSIND #### [facility] [address] [place] [address] Dr. Adrianna Caldera Monocytes/100 WBC (Bld) 6.3 % Normal 1.7-12.0 [facility] Comment on above: Performed By: #### U ACSIND #### [facility] [address] [place] [address] Dr. Adrianna Caldera NEUT # 7.2 103/ul Critically high 1.4-6.5 [facility] Comment on above: Performed By: #### U ACSIND #### [facility] [address] [address] [address] Adrianna Caldera Neutrophils/100 WBC (Bld) 65.3 % Normal 43.0-75.0 [facility] Comment on above: Performed By: #### U ACSIND #### [facility] [address] [address] [address] Adrianna Caldera Platelet mean volume (Bld) [Entitic vol] 10.3 fL Normal 9.5-13.5 [facility] Comment on above: Performed By: #### U ACSIND #### [facility] [address] [place] [address] Dr. Adrianna Caldera PLT 316 103/ul Normal 150-450 [facility] Comment on above: Performed By: #### U ACSIND #### [facility] [address] [address] [address] Adrianna Caldera RBC 4.29 106/ul Normal 4.20-5.40 [facility] Comment on above: Performed By: #### U ACSIND #### [facility] [address] [place] [address] Dr. Adrianna Caldera WBC 11.0 103/ul Normal 4.0-11.0 [facility] Comment on above: Performed By: #### U ACSIND #### [facility] [address] [place] [address] ABD/PELV W CONon [...] ISIDRO AVILA Date: 2022-05-26 19:39 Normal [facility] Covid-19 PCR ([facility])on 04-30 SARS-CoV-2 (COVID-19) RNA ALEKSANDER+probe Ql (Unsp spec) Not detected Normal NOT DETECTED [facility] Comment on above: Result Comment: When [...] for this test is supported by the [place] of Health and Human Service's declaration that [...] By: #### U ACSIND #### [facility] [address] [place] [address] Dr. Adrianna Caldera ER URINE PROFILEon 2 Bilirubin Ql (U) Negative Normal NEGATIVE [facility] Comment on above: Performed By: #### P REGQNT #### [facility] [address] [place] [address] Dr. Adrianna Caldera Clarity (U) CLEAR Normal CLEAR [facility] Comment on above: Performed By: #### P REGQNT #### [facility] [address] [place] [address] Dr. Adrianna Caldera Color (U) YELLOW Normal YELLOW [facility] Comment on above: Performed By: #### P REGQNT #### [facility] [address] [place] [address] Dr. Adrianna LINARES A micrscopic examination will be performed if indicated. Normal [facility] Comment on above: Performed By: #### P REGQNT #### [facility] [address] [place] [address] Dr. Adrianna Caldera Glucose Ql (U) Negative Normal NEGATIVE [facility] Comment on above: Performed By: #### P REGQNT #### [facility] [address] [place] [address] Dr. Adrianna Caldera Hemoglobin Ql (U) Negative Normal NEGATIVE [facility] Comment on above: Performed By: #### P REGQNT #### [facility] [address] [place] [address] Dr. Adrianna Caldera Ketones Ql (U) 15 mg/dl Abnormal NEGATIVE [facility] Comment on above: Performed By: #### P REGQNT #### [facility] [address] [place] [address] Dr. Adrianna Caldera LEUKOCYTES Negative Normal NEGATIVE [facility] Comment on above: Performed By: #### P REGQNT #### [facility] [address] [place] [address] Dr. Adrianna Caldera Nitrite Ql (U) Negative Normal NEGATIVE [facility] Comment on above: Performed By: #### P REGQNT #### [facility] [address] [place] [address] Dr. Adrianna Caldera pH (U) 7.5 [pH] Normal 5-9 [facility] Comment on above: Performed By: #### P REGQNT #### [facility] [address] [place] [address] Dr. Adrianna Caldera SPEC GRAVITY 1.020 Normal 1.005-<=1.0 [facility] Comment on above: Performed By: #### P REGQNT #### [facility] [address] [place] [address] Dr. Adrianna Caldera UA PROTEIN Negative Normal NEGATIVE/ TRACE [facility] Comment on above: Performed By: #### P REGQNT #### [facility] [address] [place] [address] Dr. Adrianna Caldera UR MICRO IND NOT INDICATED Normal [facility] Comment on above: Performed By: #### P REGQNT #### [facility] [address] [place] [address] Dr. Adrianna Caldera Urobilinogen Qn (U) 0.2 {Micheal'U}/dL Normal 0.2 - 1. 0 [facility] Comment on above: Performed By: #### P REGQNT #### [facility] [address] [place] [address] Dr. Adrianna Caldera LIPASEon 05-26-2022 Lipase [Catalytic activity/Vol] 116.0 U/L Normal 73.0-393.0 [facility] Comment on above: Performed By: #### L IPA, CMP #### [facility] [address] [place] [address] Dr. Adrianna Caldera PROF 14(COMP METB)on 022 Albumin [Mass/Vol] 3.6 g/dL Normal 3.4-5.0 [facility] Comment on above: Performed By: #### L IPA, CMP #### [facility] [address] [place] [address] Dr. Adrianna Caldera Albumin/Globulin [Mass ratio] 0.9 {ratio} Normal [facility] Comment on above: Performed By: #### L IPA, CMP #### [facility] [address] [place] [address] Dr. Adrianna Caldera ALP [Catalytic activity/Vol] 57 U/L Normal 46-116 [facility] Comment on above: Performed By: #### L IPA, CMP #### [facility] [address] [place], [place] [id number] Dr. Adrianna Caldera ALT [Catalytic activity/Vol] 13 U/L Critically low 14-59 [facility] Comment on above: Performed By: #### L IPA, CMP #### [facility] [address] [address] [address] Adrianna Caldera Anion gap [Moles/Vol] 10.6 mmol/L Normal Th e [facility] Comment on above: Performed By: #### L IPA, CMP #### [facility] [address] [address] [address] Adrianna Caldera AST [Catalytic activity/Vol] 12 U/L Critically low 15-37 [facility] Comment on above: Performed By: #### L IPA, CMP #### [facility] [address] [place] [address] Dr. Adrianna Caldera Bilirubin [Mass/Vol] 0.2 mg/dL Normal 0.2-1.0 [facility] Comment on above: Performed By: #### L IPA, CMP #### [facility] [address] [place] [address] Dr. Adrianna Caldera Calcium [Mass/Vol] 8.9 mg/dL Normal 8.5-10.1 [facility] Comment on above: Performed By: #### L IPA, CMP #### [facility] [address] [place] [address] Dr. Adrianna Caldera Chloride [Moles/Vol] 102 mmol/L Normal 98-107 [facility] Comment on above: Performed By: #### L IPA, CMP #### [facility] [address] [place] [address] Dr. Adrianna Caldera CO2 [Moles/Vol] 26.0 mmol/L Normal 21.0-32.0 [facility] Comment on above: Performed By: #### L IPA, CMP #### [facility] [address] [address] [address] Adrianna Caldera Creatinine [Mass/Vol] 0.61 mg/dL Normal 0.55-1.02 [facility] Comment on above: Performed By: #### L IPA, CMP #### [facility] [address] [place] [address] Dr. Adrianna Caldera EGFR-AF [place] >60 Normal >=60 [facility] Comment on above: Performed By: #### L IPA, CMP #### [facility] [address] [address] [address] Adrianna Caldera EGFR-NON AF [place] >60 Normal >=60 [facility] Comment on above: Performed By: #### L IPA, CMP #### [facility] [address] [address] [address] Adrianna Caldera Globulin (S) [Mass/Vol] 3.8 g/dL Normal T [facility] Comment on above: Performed By: #### L IPA, CMP #### [facility] [address] [address] [address] Adrianna Caldera Glucose [Mass/Vol] 82 mg/dL Normal 74-106 [facility] Comment on above: Performed By: #### L IPA, CMP #### [facility] [address] [address] [address] Adrianna Caldera Potassium [Moles/Vol] 3.6 mmol/L Normal 3.5-5.1 [facility] Comment on above: Performed By: #### L IPA, CMP #### [facility] [address] [address] [address] Adrianna Caldera Protein [Mass/Vol] 7.4 g/dL Normal 6.4-8.2 [facility] Comment on above: Performed By: #### L IPA, CMP #### [facility] [address] [address] [address] Adrianna Caldera Sodium [Moles/Vol] 135 mmol/L Critically low 136-145 [facility] Comment on above: Performed By: #### L IPA, CMP #### [facility] [address] [address] [address] Adrianna Caldera Urea nitrogen [Mass/Vol] 9.0 mg/dL Normal 7.0-18.0 [facility] Comment on above: Performed By: #### L IPA, CMP #### [facility] [address] [address] [address] Adrianna Caldera Urea nitrogen/Creatinine [Mass ratio] 14.8 mg/mg Normal [facility] Comment on above: Performed By: #### L IPA, [facility] #### [facility] [address] [address] [address] Adrianna Caldera No Panel Informationon 05-17 Body mass index (BMI) [Percentile] Per age and sex 0.1 {percentile} Invalid Interpretation Code [employer] [id number] Per age and sex 0.1 {percentile} Invalid Interpretation Code [employer] US PREG TVon 05-01-2022 US PREG TV [...] KAROL SIDDIQUI Date: 2022-04-30 22:06 Normal [facility] US PREG TVon 04-08-2022 US PREG [...] by: KAROL SIDDIQUI Date: 2022-04-08 17:08 Normal [facility] US PELVIS TRANSVAGon 03-23-2 022 US PELVIS [...] Date: 2022-03-22 22:47 Normal [facility] CBC AUTO DIFFon 03-22-2022 BASO # 0.1 103/ul Normal 0.0-0.1 [facility] Comment on above: Performed By: #### U ACSIND #### [facility] [address] [place] [address] Dr. Adrianna Caldera Basophils/100 WBC (Bld) 0.5 % Normal 0.2-2.0 [facility] Comment on above: Performed By: #### U ACSIND #### [facility] [address] [address] [address] Adrianna Caldera EO # 0.1 103/ul Normal 0.0-0.7 [facility] Comment on above: Performed By: #### U ACSIND #### [facility] [address] [address] [address] Adrianna Caldera Eosinophils/100 WBC (Bld) 0.6 % Critically low 0.9-7.0 [facility] Comment on above: Performed By: #### U ACSIND #### [facility] [address] [address] [address] Adrianna Caldera Erythrocyte distribution width (RBC) [Ratio] 12.6 % Normal 11.0-15.0 [facility] Comment on above: Performed By: #### U ACSIND #### [facility] [address] [place] [address] Dr. Adrianna Caldera Hematocrit (Bld) [Volume fraction] 40.0 % Normal 36.0-48.0 [facility] Comment on above: Performed By: #### U ACSIND #### [facility] [address] [place] [address] Dr. Adrianna Caldera Hemoglobin (Bld) [Mass/Vol] 13.6 g/dL Normal 12.0-16.0 [facility] Comment on above: Performed By: #### U ACSIND #### [facility] [address] [place] [address] Dr. Adrianna Caldera IG # 0.03 10e3/ul Normal 0.00-0.03 [facility] Comment on above: Performed By: #### U ACSIND #### [facility] [address] [place] [address] Dr. Adrianna Caldera IG % 0.3 % Normal 0.0-0.5 [facility] Comment on above: Performed By: #### U ACSIND #### [facility] [address] [place] [address] Dr. Adrianna Caldera LYMPH # 4.4 103/ul Critically high 1.2-3.8 [facility] Comment on above: Performed By: #### U ACSIND #### [facility] [address] [place] [address] Dr. Adrianna Caldera Lymphocytes/100 WBC (Bld) 38.4 % Normal 20.5-60.0 [facility] Comment on above: Performed By: #### U ACSIND #### [facility] [address] [place] [address] Dr. Adrianna Caldera MANUAL DIFF REQ NO Normal [facility] Comment on above: Performed By: #### U ACSIND #### [facility] [address] [place] [address] Dr. Adrianna Caldera MCH (RBC) [Entitic mass] 30.2 pg Normal 26.7-34.0 [facility] Comment on above: Performed By: #### U ACSIND #### [facility] [address] [place] [address] Dr. Adrianna Caldera MCHC (RBC) [Mass/Vol] 34.0 g/dL Normal 29.9-35.2 [facility] Comment on above: Performed By: #### U ACSIND #### [facility] [address] [place] [address] Dr. Adrianna Caldera MCV (RBC) [Entitic vol] 88.9 fL Normal 81.0-99.0 [facility] Comment on above: Performed By: #### U ACSIND #### [facility] [address] [place] [address] Dr. Adrianna Caldera MONO # 0.7 103/ul Normal 0.3-0.8 [facility] Comment on above: Performed By: #### U ACSIND #### [facility] [address] [place] [address] Dr. Adrianna Caldera Monocytes/100 WBC (Bld) 6.2 % Normal 1.7-12.0 [facility] Comment on above: Performed By: #### U ACSIND #### [facility] [address] [place] [address] Dr. Adrianna Caldera NEUT # 6.1 103/ul Normal 1.4-6.5 [facility] Comment on above: Performed By: #### U ACSIND #### [facility] [address] [place] [address] Dr. Adrianna Caldera Neutrophils/100 WBC (Bld) 54.0 % Normal 43.0-75.0 [facility] Comment on above: Performed By: #### U ACSIND #### [facility] [address] [place] [address] Dr. Adrianna Caldera Platelet mean volume (Bld) [Entitic vol] 10.9 fL Normal 9.5-13.5 [facility] Comment on above: Performed By: #### U ACSIND #### [facility] [address] [place] [address] Dr. Adrianna Caldera PLT 277 103/ul Normal 150-450 [facility] Comment on above: Performed By: #### U ACSIND #### [facility] [address] [address] [address] Adrianna Caldera RBC 4.50 106/ul Normal 4.20-5.40 [facility] Comment on above: Performed By: #### U ACSIND #### [facility] [address] [address] [address] Adrianna Caldera WBC 11.3 103/ul Critically high 4.0-11.0 [facility] Comment on above: Performed By: #### U ACSIND #### [facility] [address] [address] [address] Adrianna Caldera ER URINE PROFILEon 2 Bilirubin Ql (U) Negative Normal NEGATIVE [facility] Comment on above: Performed By: #### P REGU, ERUR ####[facility] [address] [address]Dr. Adrianna Caldera Clarity (U) CLEAR Normal CLEAR [facility] Comment on above: Performed By: #### P REGU, ERUR ####[facility] [address] [address]Dr. Adrianna Caldera Color (U) LT. YELLOW Normal YELLOW [facility] Comment on above: Performed By: #### P REGU, ERUR ####[facility] [address] [address]DrAung LINARES A micrscopic examination will be performed if indicated. Normal [facility] Comment on above: Performed By: #### P REGU, ERUR ####[facility] [address] [address]Dr. Adrianna Caldera Glucose Ql (U) Negative Normal NEGATIVE [facility] Comment on above: Performed By: #### P REGU, ERUR ####[facility] [address] [address]Dr. Adrianna Caldera Hemoglobin Ql (U) Negative Normal NEGATIVE [facility] Comment on above: Performed By: #### P REGU, ERUR ####[facility] [address] [address]Dr. Adrianna Caldera Ketones Ql (U) Negative Normal NEGATIVE [facility] Comment on above: Performed By: #### P REGU, ERUR ####[facility] [address] [address]Dr. Jemimabenito Caldera LEUKOCYTES Negative Normal NEGATIVE [facility] Comment on above: Performed By: #### P REGU, ERUR ####[facility] [address] [place], [place] [address]Dr. Adrianna Caldera Nitrite Ql (U) Negative Normal NEGATIVE [facility] Comment on above: Performed By: #### P REGU, ERUR ####[facility] [address] [place], [place] [address]Dr. Adrianna Caldera pH (U) 6.0 [pH] Normal 5-9 [facility] Comment on above: Performed By: #### P REGU, ERUR ####[facility] [address] [place], [place] [address]Dr. Adrianna Caldera SPEC GRAVITY <=1.005 Abnormal 1.005-<=1.0 25 [facility] Comment on above: Performed By: #### P REGU, ERUR ####[facility] [address] [place], [place] [address]Dr. Adrianna Caldera UA PROTEIN Negative Normal NEGATIVE/ TRACE [facility] Comment on above: Performed By: #### P REGU, ERUR ####[facility] [address] [place], [place] [address]Dr. Adrianna Caldera UR MICRO IND NOT INDICATED Normal [facility] Comment on above: Performed By: #### P REGU, ERUR ####[facility] [address] [place], [place] [address]Dr. Adrianna Caldera Urobilinogen Qn (U) 0.2 {Micheal'U}/dL Normal 0.2 - 1. 0 [facility] Comment on above: Performed By: #### P REGU, ERUR ####[facility] [address] [address]Dr. Adrianna Caldera PREG QUANT HCGon 03-22-2022 HCG QUANT 2 mIU/mL Normal [facility] Comment on above: Performed By: #### P REGQNT #### [facility] [address] [place] [address] Dr. Adrianna Caldera HCG RANGE SEE BELOW Normal [facility] Comment on above: Result Comment: 5-50 0.2-1 WEEK 50-500 1-2 WEEKS 100-5,000 2-3 WEEKS 500-10,000 3-4 WEEKS 1,000-50,000 4-5 WEEKS 10,000-100,000 5-6 WEEKS 15,000-200,000 6-8 WEEKS 10,000-100,000 2-3 MONTHS Performed By: #### P REGQNT #### [facility] [address] [place] [address] Dr. Adrianna Caldera URon 03-22-2022 , QUAL Negative Normal NEGATIVE [facility] Comment on above: Performed By: #### P REGU, ERUR ####[facility] [address] [address]Dr. Adrianna Caldera PROF CHEM 8 (BAS METB)on Anion gap [Moles/Vol] 10.9 mmol/L Normal [facility] Comment on above: Performed By: #### U ACSIND #### [facility] [address] [place] [address] Dr. Adrianna Caldera Calcium [Mass/Vol] 9.1 mg/dL Normal 8.5-10.1 [facility] Comment on above: Performed By: #### U ACSIND #### [facility] [address] [address] [address] Adrianna Caldera Chloride [Moles/Vol] 105 mmol/L Normal 98-107 [facility] Comment on above: Performed By: #### U ACSIND #### [facility] [address] [place] [address] Dr. Adrianna Caldera CO2 [Moles/Vol] 26.0 mmol/L Normal 21.0-32.0 [facility] Comment on above: Performed By: #### U ACSIND #### [facility] [address] [address] [address] Adrianna Caldera Creatinine [Mass/Vol] 0.98 mg/dL Normal 0.55-1.02 [facility] Comment on above: Performed By: #### U ACSIND #### [facility] [address] [address] [address] Adrianna Caldera EGFR-AF [place] >60 Normal >=60 [facility] Comment on above: Performed By: #### U ACSIND #### [facility] [address] [address] [address] Adrianna Caldera EGFR-NON AF [place] >60 Normal >=60 [facility] Comment on above: Performed By: #### U ACSIND #### [facility] [address] [address] [address] Adrianna Caldera Glucose [Mass/Vol] 87 mg/dL Normal 74-106 [facility] Comment on above: Performed By: #### U ACSIND #### [facility] [address] [address] [address] Adrianna Caldera Potassium [Moles/Vol] 3.9 mmol/L Normal 3.5-5.1 [facility] Comment on above: Performed By: #### U ACSIND #### [facility] [address] [address] [address] Adrianna Caldera Sodium [Moles/Vol] 138 mmol/L Normal 136-145 [facility] Comment on above: Performed By: #### U ACSIND #### [facility] [address] [address] [address] Adrianna Caldera Urea nitrogen [Mass/Vol] 11.0 mg/dL Normal 7.0-18.0 [facility] Comment on above: Performed By: #### U ACSIND #### [facility] [address] [address] [address] Adrianna Caldera Urea nitrogen/Creatinine [Mass ratio] 11.2 mg/mg Normal [facility] Comment on above: Performed By: #### U ACSIND #### [facility] [address] [address] [address] Adrianna Caldera PREG QUANT HCGon 03-03-2022 HCG QUANT 1 mIU/mL Normal [facility] Comment on above: Performed By: #### P REGQNT #### [facility] [address] [place] [address] Dr. Adrianna Caldera HCG RANGE SEE BELOW Normal [facility] Comment on above: Result Comment: 5-50 0.2-1 WEEK 50-500 1-2 WEEKS 100-5,000 2-3 WEEKS 500-10,000 3-4 WEEKS 1,000-50,000 4-5 WEEKS 10,000-100,000 5-6 WEEKS 15,000-200,000 6-8 WEEKS 10,000-100,000 2-3 MONTHS Performed By: #### P REGQNT #### [facility] [address] [place] [address] Dr. Adrianna Caldera Creatinine and Glomerular fi ltration rate.predicted panel (S/P/Bld)Ordered By: Tae Natarajan on 02-10-2022 Creatinine [Mass/Vol] 1.03 mg/dL 0.44-1.03 [facility] Estimated glomerular filtrat ion rate (GFR) non- AmericanOrdered By: Tae Natarajan on 02-10-2022 GFR/1.73 sq M.predicted among non-blacks MDRD (S/P/Bld) [Vol rate/Area] > 60 mL/Min [facility] HCG ( test) IA.rapi d Ql (U)Ordered By: Tae Natarajan on 02-10-2022 HCG ( test) Ql (U) Negative [facility] No Panel InformationOrdered By: Tae Natarajan on 02-10-2022 Estimated GFR () > 60 mL/Min [facility] Comment on above: GFR estimated refere nce range: According to KDOQI guidelines, <60 ml/min/1.73m2 is sufficient to diagnose a patient with chronic kidney disease. Pharmacy Creatinine Clearance (Chem 88.89 [facility] Serum or plasma urea nitroge n measurement (mass/volume)Ordered By: Tae Natarajan on 02-10-2022 Urea nitrogen [Mass/Vol] 9 mg/dL 02-19 [facility] PREG QUANT HCGon 12-04-2021 HCG QUANT <1 Normal [facility] Comment on above: Performed By: #### P REGQNT #### [facility] [address] [place], [place] [address] Dr. Adrianna Caldera HCG RANGE SEE BELOW Normal [facility] Comment on above: Result Comment: 5-50 0-1 WEEK 40-300 1-2 WEEKS 100-1,000 2-3 WEEKS 500-6,000 3-4 WEEKS 5,000-200,000 1-2 MONTHS 10,000-100,000 2-3 MONTHS 3,000-50,000 2ND TRIMESTER 1,000-50,000 3RD TRIMESTER Performed By: #### P REGQNT #### [facility] [address] [place], [place] [address] Dr. Adrianna Caldera CBC AUTO DIFFon 11-14-2021 BASO # 0.1 103/ul Normal 0.0-0.1 [facility] Comment on above: Performed By: #### C BC ####[facility] [address] [address]DrAung Caldera Basophils/100 WBC (Bld) 0.5 % Normal 0.2-2.0 [facility] Comment on above: Performed By: #### C BC ####[facility] [address] [id number] Caldera EO # 0.1 103/ul Normal 0.0-0.7 [facility] Comment on above: Performed By: #### C BC ####[facility] [address] [place], [place] [address]RcAung Caldera Eosinophils/100 WBC (Bld) 0.8 % Critically low 0.9-7.0 [facility] Comment on above: Performed By: #### C BC ####[facility] [address] [id number] Caldera Erythrocyte distribution width (RBC) [Ratio] 13.0 % Normal 11.0-15.0 [facility] Comment on above: Performed By: #### C BC ####[facility] [address] [address]Dr. Adrianna Caldera Hematocrit (Bld) [Volume fraction] 38.5 % Normal 36.0-48.0 [facility] Comment on above: Performed By: #### C BC ####[facility] [address] [address]Dr. Adrianna Caldera Hemoglobin (Bld) [Mass/Vol] 12.9 g/dL Normal 12.0-16.0 [facility] Comment on above: Performed By: #### C BC ####[facility] [address] [place], [place] [address]Dr. Jemimabenito Caldera IG # 0.03 10e3/ul Normal 0.00-0.03 [facility] Comment on above: Performed By: #### C BC ####[facility] [address] [place], [place] [address]Dr. Adrianna Caldera IG % 0.3 % Normal 0.0-0.5 [facility] Comment on above: Performed By: #### C BC ####[facility] [address] [place], [place] [address]Dr. Jemimabenito Caldera LYMPH # 2.8 103/ul Normal 1.2-3.8 [facility] Comment on above: Performed By: #### C BC ####[facility] W[address] [place], [place] [address]Dr. Adrianna Caldera Lymphocytes/100 WBC (Bld) 27.4 % Normal 20.5-60.0 [facility] Comment on above: Performed By: #### C BC ####[facility] Wftbioxv[address] [place], [place] [address]Dr. Adrianna Caldera MANUAL DIFF REQ NO Normal [facility] Comment on above: Performed By: #### C BC ####[facility] Opvyoyyybb[address] [place], [place] [address]Dr. Adrianna Caldera MCH (RBC) [Entitic mass] 29.7 pg Normal 26.7-34.0 [facility] Comment on above: Performed By: #### C BC ####[facility] [address] [place] [id number]. Adrianna Caldera MCHC (RBC) [Mass/Vol] 33.5 g/dL Normal 29.9-35.2 [facility] Comment on above: Performed By: #### C BC ####[facility] [address]rf[address] [place] [phone]. Adrianna Werner MCV (RBC) [Entitic vol] 88.7 fL Normal 81.0-99.0 [facility] Comment on above: Performed By: #### C BC ####[facility] Ltrdabvuof[address] [place], [place] [address]Dr. Jemimabenito Werner MONO # 0.7 103/ul Normal 0.3-0.8 [facility] Comment on above: Performed By: #### C BC ####[facility] Jqzqcy[address] [place], [place] [address]Dr. Adrianna Caldera Monocytes/100 WBC (Bld) 6.5 % Normal 1.7-12.0 [facility] Comment on above: Performed By: #### C BC ####[facility] Oanobvtrlv[address] [place], [place] [address]Dr. Adrianna Caldera NEUT # 6.5 103/ul Normal 1.4-6.5 [facility] Comment on above: Performed By: #### C BC ####[facility] Hcyjeg[address] [place], [place] [address]Dr. Adrianna Caldera Neutrophils/100 WBC (Bld) 64.5 % Normal 43.0-75.0 [facility] Comment on above: Performed By: #### C BC ####[facility] Bwsjiqhefh[address] [place], [place] [address]Dr. Adrianna Caldera Platelet mean volume (Bld) [Entitic vol] 10.4 fL Normal 9.5-13.5 [facility] Comment on above: Performed By: #### C BC ####[facility] Cozdrsavpx[address] [place], [place] [address]Dr. Adrianna Caldera PLT 324 103/ul Normal 150-450 [facility] Comment on above: Performed By: #### C BC ####[facility] [address] [place] [address]Dr. Adrianna Caldera RBC 4.34 106/ul Normal 4.20-5.40 [facility] Comment on above: Performed By: #### C BC ####[facility] [address] [place] [phone]. Adrianna Caldera WBC 10.1 103/ul Normal 4.0-11.0 [facility] Comment on above: Performed By: #### C BC ####[facility] Gtmaelgvcg[address] [place], [place] [address]Dr. Adrianna Caldera ER URINE PROFILEon 2 Bilirubin Ql (U) Negative Normal NEGATIVE [facility] Comment on above: Performed By: #### JOHN HAYNES UMICRO ####[facility] [address] [place] [address]Dr. Adrianna Caldera Clarity (U) CLEAR Normal CLEAR [facility] Comment on above: Performed By: #### JOHN HAYNES UMICRO ####[facility] [address] [place] [address]Dr. Adrianna Caldera Color (U) LT. YELLOW Normal YELLOW [facility] Comment on above: Performed By: #### HECTOR HAYNESU UMICRO ####[facility] Dociciobpe[address] [place], [place] [address]Dr. Adrianna Caldera ERUAHD A micrscopic examination will be performed if indicated. Normal [facility] Comment on above: Performed By: #### Rojelio MONDRAGON PREGU UMICRO ####[facility] [address] [place] [address]Dr. Adrianna Caldera Glucose Ql (U) Negative Normal NEGATIVE The [facility] Comment on above: Performed By: #### Rojelio MONDRAGON PREGU UMICRO ####[facility] [address]bi[address] [place] [address]Dr. Adrianna Caldera Hemoglobin Ql (U) LARGE Abnormal NEGATIVE The [facility] Comment on above: Performed By: #### Rojelio MONDRAGON PREGU UMICRO ####[facility] [address] [place] [address]Dr. Adrianna Caldera Ketones Ql (U) Negative Normal NEGATIVE The [facility] Comment on above: Performed By: #### JOHN HAYNES UMICRO ####[facility] [address] [place] [address]Dr. Adrianna Caldera LEUKOCYTES Negative Normal NEGATIVE [facility] Comment on above: Performed By: #### JOHN HAYNES UMICRO ####[facility] [address] [place] [address]Dr. Adrianna Werner Nitrite Ql (U) Negative Normal NEGATIVE [facility] Comment on above: Performed By: #### JOHN HAYNES UMICRO ####[facility] [address]ir[address] [place] [address]Dr. Adrianna Caldera pH (U) 6.5 [pH] Normal 5-9 [facility] Comment on above: Performed By: #### JOHN HAYNES UMICRO ####[facility] [address] [place] [address]Dr. Adrianna Caldera SPEC GRAVITY 1.015 Normal 1.005-<=1.0 [facility] Comment on above: Performed By: #### JOHN HAYNES UMICRO ####[facility] [address] [place] [address]Dr. Jemimabenito Caldera UA PROTEIN Negative Normal NEGATIVE/ TRACE [facility] Comment on above: Performed By: #### JOHN HAYNES UMICRO ####[facility] [address] [place] [address]Dr. Adrianna Caldera UR MICRO IND INDICATED Normal [facility] Comment on above: Performed By: #### JOHN HAYNES UMICRO ####[facility] [address]fnl[address] [place] [address]Dr. Adrianna Caldera Urobilinogen Qn (U) 0.2 {Micheal'U}/dL Normal 0.2 - 1. 0 [facility] Comment on above: Performed By: #### JOHN HAYNES UMICRO ####[facility] [address] [place], [place] [address]Dr. Adrianna Caldera URon 11-14-2021 , QUAL Negative Normal NEGATIVE [facility] Comment on above: Performed By: #### E RUR, PREGU, UMICRO ####[facility] [address] [place], [place] [address]Dr. Adrianna Caldera PROF CHEM 8 (BAS METB)on Anion gap [Moles/Vol] 13.5 mmol/L Normal [facility] Comment on above: Performed By: #### U ACSIND #### [facility] [address] [address] [address] Adrianna Caldera Calcium [Mass/Vol] 8.7 mg/dL Normal 8.5-10.1 [facility] Comment on above: Performed By: #### U ACSIND #### [facility] [address] [address] [address] Adrianna Caldera Chloride [Moles/Vol] 102 mmol/L Normal 98-107 [facility] Comment on above: Performed By: #### U ACSIND #### [facility] [address] [address] [address] Adrianna Caldera CO2 [Moles/Vol] 27.3 mmol/L Normal 21.0-32.0 [facility] Comment on above: Performed By: #### U ACSIND #### [facility] [address] [address] [address] Adrianna Caldera Creatinine [Mass/Vol] 0.85 mg/dL Normal 0.55-1.02 [facility] Comment on above: Performed By: #### U ACSIND #### [facility] [address] [address] [address] Adrianna Caldera EGFR-AF [place]ER >60 Normal >=60 [facility] Comment on above: Performed By: #### U ACSIND #### [facility] [address] [address] [address] Adrianna Caldera EGFR-NON AF [place] >60 Normal >=60 [facility] Comment on above: Performed By: #### U ACSIND #### [facility] [address] [address] [address] Adrianna Caldera Glucose [Mass/Vol] 104 mg/dL Normal 74-106 [facility] Comment on above: Performed By: #### U ACSIND #### [facility] [address] [address] [address] Adrianna Caldera Potassium [Moles/Vol] 3.8 mmol/L Normal 3.5-5.1 [facility] Comment on above: Performed By: #### U ACSIND #### [facility] [address] [address] [address] Adrianna Caldera Sodium [Moles/Vol] 139 mmol/L Normal 136-145 [facility] Comment on above: Performed By: #### U ACSIND #### [facility] [address] [address] [address] Adrianna Caldera Urea nitrogen [Mass/Vol] 8.0 mg/dL Normal 7.0-18.0 [facility] Comment on above: Performed By: #### U ACSIND #### [facility] [address] [address] [address] Adrianna Caldera Urea nitrogen/Creatinine [Mass ratio] 9.4 mg/mg Normal [facility] Comment on above: Performed By: #### U ACSIND #### [facility] [address] [address] [address] Adrianna Caldera URINE MICROSCOPIC ONLYon BACTERIA NONE SEEN Normal NONE SEEN [facility] Comment on above: Performed By: #### E RUR PREGU, UMICRO ####[facility] [address] [place] [address]DrAung Caldera Bacteria identified Cx Nom (U) NOT INDICATED Normal [facility] Comment on above: Performed By: #### E RUR, PREGU, UMICRO ####[facility] [address] [place] [phone] Caldera CAST NONE SEEN Normal NONE SEEN [facility] Comment on above: Performed By: #### E RUR, PREGU, UMICRO ####[facility] [address] [place] [phone]. Jemimabenito Caldera Crystals LM Nom (Urine sed) NONE SEEN Normal NONE SEEN [facility] Comment on above: Performed By: #### E RUR, PREGU, UMICRO ####[facility] [address] [place] [phone]. Adrianna Caldera Epithelial cells LM Ql (Urine sed) RARE Normal NONE SEEN /RARE [facility] Comment on above: Performed By: #### E RUR, PREGU, UMICRO ####[facility] [address] [place] [phone]. Adrianna Caldera MUCOUS NONE SEEN Normal NONE SEEN [facility] Comment on above: Performed By: #### E RUR, PREGU, UMICRO ####[facility] [address] [place] [phone]. Adrianna Caldera RBC 10-20 Abnormal 0-2 [facility] Comment on above: Performed By: #### E RUR PREGU, UMICRO ####[facility] [address] [place] [phone]. Adrianna Caldera WBC 0-2 Abnormal NONE SEEN [facility] Comment on above: Performed By: #### E RUR, PREGU, UMICRO ####[facility] [address] [place] [address]Dr. Adrianna Caldera HCG, Quantitative, on 10-12-2021 hCG Quant <1 <5 mIU/mL [facility] Comment on above: Non-preg premeno <=5 Postmeno <=8 Male <=3 If HCG results do not concur with clinical observations, additional testing to confirm results is recommended. Elevated results not associated with may be found in patients with other diseases such as tumors of the germ cells (testis, ovaries, etc.), bladder, pancreas, stomach, lungs, and liver. [facility] CBC with Auto Differentialon 10-11-2021 Absolute Eos # 0.08 [facility] Absolute Immature Granulocyte <0.03 [facility] Absolute Lymph # 1.85 [facility] alth Absolute [place] # 0.56 [facility] Basophils (Bld) [#/Vol] 0.04 10*3/uL [facility] Basophils/100 WBC (Bld) 1 % 0 - 2 % M [facility] Eosinophils/100 WBC (Bld) 1 % 1 - 4 % [facility] Hematocrit (Bld) [Volume fraction] 38.9 % 36.3 - 47.1 % [facility] Hemoglobin.gastrointest inal spec 1 Ql (Stl) 12.7 g/dL 11.9 - 15.1 g/dL [facility] Immature granulocytes/100 WBC (Bld) 0 % 0 [facility] Lymphocytes/100 WBC (Bld) 29 % 24 - 43 % [facility] MCH (RBC) [Entitic mass] 29.7 pg 25.2 - 33.5 pg [facility] MCHC (RBC) [Mass/Vol] 32.6 g/dL 28.4 - 34.8 g/dL [facility] MCV (RBC) [Entitic vol] 90.9 fL 82.6 - 102.9 fL [facility] Monocytes/100 WBC (Bld) 9 % 3 - 12 % [facility] NRBC Automated 0.0 0.0 per 100 WBC [facility] Platelet distribution width (Bld) [Ratio] 12.9 % 11.8 - 14.4 % [facility] Platelet mean volume (Bld) [Entitic vol] 10.3 fL 8.1 - 13.5 fL [facility] Platelets (Bld) [#/Vol] 351 10*3/uL [facility] RBC (Bld) [#/Vol] 4.28 10*6/uL 3.95 - 5.1 1 m/uL [facility] Segmented neutrophils/100 WBC (Bld) 60 % 36 - 65 % [facility] Segs Absolute 3.90 [facility] WBC (Bld) [#/Vol] 6.5 10*3/uL [facility] CT ABDOMEN PELVIS W IV [...] No hydronephrosis. Gallbladder is not remarkable. GI/Bowel: Ecpc-qb-knufshwk retained stool without bowel obstruction. No pericecal inflammatory changes. Appendix unremarkable. Pelvis: There is mild prominence endometrial canal 7 mm. This may related to phase of menstrual cycle. Please correlate exam findings and history. No suspicious adnexal mass. Bladder remarkable. Peritoneum/Retroperi toneum: Trace free fluid dependent pelvis. No free air. No suspicious adenopathy. Bones/Soft Tissues: No suspicious osseous lesion [facility] Ashutosh Omalley MD - 10/11/2021 EXAMINATION: [...] No hydronephrosis. Gallbladder is not remarkable. GI/Bowel: Xetc-fb-zvuhpjre retained stool without bowel obstruction. No pericecal [...] Negative acute inflammatory process or bowel obstruction. [facility] Work Phone: Radiology Study observation (narrative) [facility] [facility] Work Phone: CT ABDOMEN PELVIS W IV CONTR AST Additional Contrast? NoneOrdered By: Ashutosh Omalley on 10-11-2021 [facility] Work Phone: Comprehensive Metabolic Pane l w/ Reflex to MGon 10-11-2021 Albumin [Mass/Vol] 4.3 g/dL 3.5 - 5.2 g/dL [facility] Albumin/Globulin [Mass ratio] 1.7 {ratio} [facility] ALP (Bld) [Catalytic activity/Vol] 73 U/L 35 - 104 U/L [facility] ALT [Catalytic activity/Vol] 21 U/L 5 - 33 U/L [facility] Anion gap [Moles/Vol] 7 mmol/L Low 9 - 17 mmol/L [facility] AST [Catalytic activity/Vol] 15 U/L <32 [facility] Bilirubin [Mass/Vol] 0.25 mg/dL Low 0.3 - 1 .2 mg/dL [facility] Calcium [Mass/Vol] 9.1 mg/dL 8.6 - 10. 4 mg/dL [facility] Chloride [Moles/Vol] 105 mmol/L 98 - 10 7 mmol/L [facility] CO2 [Moles/Vol] 26 mmol/L 20 - 31 mmol/L [facility] Creatinine [Mass/Vol] 0.75 mg/dL 0.50 - 0.90 mg/dL [facility] Free PSA/Total PSA [Mass fraction] 6.8 g/dL 6.4 - 8.3 g/dL [facility] GFR >60 >60 mL/min [employer] GFR Non- >60 >60 mL/min [facility] Glucose [Mass/Vol] 116 mg/dL High 70 - 99 mg/dL [facility] Interpretation and review of laboratory results Abnormal [facility] Potassium [Moles/Vol] 3.9 mmol/L 3.7 - 5.3 mmol/L [facility] Sodium [Moles/Vol] 138 mmol/L 135 - 144 mmol/L [facility] Urea nitrogen (BldV) [Mass/Vol] 9 mg/dL 6 - 20 mg/dL [facility] Urea nitrogen/Creatinine (Bld) [Mass ratio] 12 [facility] - Chemistry and C hemistry - challengeon 10-11-2021 GFR/1.73 sq M.predicted MDRD (S/P/Bld) [Vol rate/Area] [facility] Comment on above: Average GFR for 20-2 9 years old: 116 mL/min/1.73sq m Chronic Kidney Disease: <60 mL/min/1.73sq m Kidney failure: <15 mL/min/1.73sq m eGFR calculated using average adult body mass. Additional eGFR calculator available at: http://www.CQuotient/multiple_crcl_2012.htm Stage 1: Some kidney damage normal GFR Stage 2: Mild kidney damage GFR 60-89 Stage 3: Moderate kidney damage GFR 30-59 Stage 4: Severe kidney damage GFR 15-29 Stage 5: Severe kidney damage GFR <15 ESRD - chronic treatment by dialysis or transplant Lipaseon 10-11-2021 Lipase [Catalytic activity/Vol] 39 U/L 13 - 60 U/L [facility] Microscopic Urinalysison - [facility] Bacteria, UA TRACE Abnormal None [facility] Crystals, UA 2 TO 5 CALCIUM OXALATE Abnormal None /HPF [facility] Epithelial Cells UA 2 TO 5 [facility] Interpretation and review of laboratory results Abnormal [facility] RBC, UA 2 TO 5 [facility] WBC, UA 0 TO 2 [facility] No Panel Informationon 10-11 [facility] , Urineon Beta HCG ( test) Ql (U) Negative NEGATIVE [facility] Comment on above: Specimens with hCG l evels near the threshold of the test (25 mIU/mL) may give a negative or indeterminate result. In such cases, another test should be performed with a new specimen in 48-72 hours. If early is suspected clinically in this setting, correlation with quantitative serum b-hCG level is suggested. [employer] has confirmed the use of plasma for this test. This has not been cleared or approved by the U.S. Food and Drug Administration. The FDA has determined that such clearance is not necessary. [facility] Urinalysis with Reflex to Cu ltureon 10-11-2021 Bilirubin Urine Negative NEGATIVE [employer] [facility] Color, UA Yellow Yellow [facility] Glucose, Ur Negative NEGATIVE [facility] Interpretation and review of laboratory results Abnormal [facility] Ketones Ql (U) Negative NEGATIVE [facility] Leukocyte esterase Test strip Ql (U) Negative NEGATIVE [facility] Nitrite, Urine Negative NEGATIVE [facility] pH, UA 6.0 [facility] Protein, UA Negative NEGATIVE [facility] Specific Barnes, UA >1.030 High [facility] Turbidity UA Clear Clear [facility] Urine Hgb TRACE Abnormal NEGATIVE [facility] Urobilinogen, Urine Normal Normal [facility] PREG QUANT HCGon 10-09-2021 HCG QUANT <1 Normal [facility] Comment on above: Performed By: #### P REGQNT ####[facility] [address] [place], [place] [address]Hj. Adrianna Caldera HCG RANGE SEE BELOW Normal [facility] Comment on above: Result Comment: 5-50 0-1 WEEK 40-300 1-2 WEEKS 100-1,000 2-3 WEEKS 500-6,000 3-4 WEEKS 5,000-200,000 1-2 MONTHS 10,000-100,000 2-3 MONTHS 3,000-50,000 2ND TRIMESTER 1,000-50,000 3RD TRIMESTER Performed By: #### P REGQNT ####[facility] [address] [place] [id number]. Adrianna Caldera CULTURE, URINE, ROUTINEon CULTURE, URINE, ROUTINE SEE NOTE Abnormal [facility] Comment on above: Result Comment: CULTURE, URINE, ROUTINE Micro Number: [id number] Test Status: Final Specimen Source: Urine Specimen [...] Performed By: #### 3 95 #### [facility] [address], [address] [place] [address] Production Wood Craftsman: Javid Broussard MD XR CHEST PORTABLEon 03-16-20 20 No acute process. [facility] [employer] EXAMINATION: ONE XRAY VIEW OF THE CHEST 03/16/2020 3:33 pm COMPARISON: 07/13/2014 HISTORY: ORDERING SYSTEM PROVIDED HISTORY: cough, dyspnea TECHNOLOGIST PROVIDED HISTORY: cough, dyspnea FINDINGS: The lungs are without acute focal process. There is no effusion or pneumothorax. The cardiomediastinal silhouette is without acute process. The osseous structures are without acute process. [facility] [employer] James, pn Incoming Radiant Results From [email or web address] - 03/16/2020 3:43 PM EDT EXAMINATION: ONE XRAY VIEW OF THE CHEST 03/16/2020 3:33 pm COMPARISON: 07/13/2014 HISTORY: ORDERING SYSTEM PROVIDED HISTORY: cough, dyspnea TECHNOLOGIST PROVIDED HISTORY: cough, dyspnea FINDINGS: The lungs are without acute focal process. There is no effusion or pneumothorax. The cardiomediastinal silhouette is without acute process. The osseous structures are without acute process. IMPRESSION: No acute process. [place], [place] Urinalysis with Microscopico n 03-03-2020 Amorphous, UA 1+ Abnormal None [place], [place] Bacteria, UA NOT REPORTED None [place], [place] Bilirubin Urine Negative NEGATIVE [place], [place] Casts UA NOT REPORTED /LPF [place], [place] Color, UA YELLO YELLOW [place] Crystals, UA NOT REPORTED None /HPF [place] Epithelial Cells UA None [place] Glucose, Ur Negative NEGATIVE [place] Interpretation and review of laboratory results Abnormal [place] Ketones Ql (U) Negative NEGATIVE [place] Leukocyte esterase Test strip Ql (U) Negative NEGATIVE [place] Mucus, UA NOT REPORTED None [place] Nitrite, Urine Negative NEGATIVE [place] Other Observations UA NOT REPORTED NOT REQ. M [place], [place] pH, UA 6.0 [place] Protein (U) [Mass/Vol] Negative NEGATIVE [place], [place] RBC (U) [#/Vol] None [place] Renal Epithelial, UA NOT REPORTED 0 /HPF [place] Specific [place], UA >1.030 [place] Trichomonas, UA NOT REPORTED None [facility] [place], [place] Turbidity UA CLOUDY Abnormal CLEAR [place] Urinalysis Comments NOT REPORTED [place] Urine Hgb TRACE Abnormal NEGATIVE [place] Urobilinogen, Urine Normal Normal [place] WBC, UA 0 TO 2 [place] Yeast, UA NOT REPORTED None [place] HEPATOBILIARY SCAN W EJEC TION FRACTIONon 10-12-2019 Cholesterol [Mass/Vol] No convincing scintigraphic evidence of acute or chronic cholecystitis. [place] EXAMINATION: NUCLEAR MEDICINE HEPATOBILIARY SCINTIGRAPHY (HIDA [...] 30-60 mins. Images were obtained in the IRISH projection and regions of interest were drawn [...] range is based on a limited study. [place], [place] James, pn Incoming Radiant Results From [email or web address] - 10/12/2019 2:56 PM EDT EXAMINATION: NUCLEAR [...] 30-60 mins. Images were obtained in the IRISH projection and regions of interest were drawn [...] scintigraphic evidence of acute or chronic cholecystitis. [facility]- [place], [place] NM HEPATOBILIARY SCAN W PHAR MACOLOGICAL [...] 30-60 mins. Images were obtained in the IRISH projection and regions of interest were drawn [...] Niraj Covarrubias MD 10/12/19 Final result Normal [facility] H. pylori urease IDon 2019 H. pylori urease ID Specimen Description .TISSUE, STOMACH [place] [id number] EXP 04/05/20 Direct Exam NEGATIVE Report Status FINAL 10/06/2019 Normal [facility] Comment on above: Performed By: #### H JOELLE #### [facility] [address] [place] [address] [employer]: Varun Vicente MD [employer] [address] [place] [id number] [employer]: Omar Segundo MD OPERATIVE REPORTon 0 OPERATIVE REPORT [address] [id number] OPERATIVE REPORT PATIENT NAME: LULÚ GAITAN : 1995 MED REC NO: [id number] ROOM: ACCOUNT NO: [id number] ADMIT DATE: 10/05/2019 PROVIDER: Toño Blanc Jr [...] completion in satisfactory condition. TOÑO BLANC JR TRUDI/Susy_RAMIROS_I Doc#: [id number] CC: Lisseth Blanc Jr Normal [facility] POCT urine pregnancyon 10-04 Beta HCG ( test) Ql (U) Negative NEGATIVE [facility] Comment on above: Specimens with hCG l evels near the threshold of the test (25 mIU/mL) may give a negative or indeterminate result. In such cases, another test should be performed with a new specimen in 48-72 hours. If early is suspected clinically in this setting, correlation with quantitative serum b-hCG level is suggested. [id number] 10-05-2019 SARS-CoV-2 Not Detected Normal Not Detected [facility] Comment on above: Result Comment: (NOT E) The [employer] RealTime SARS-CoV-2 assay is a real-time (rt) reverse transcriptase (RT) polymerase chain reaction (PCR) test intended for the InThrMa system. The SARS-CoV-2 primer and probe sets are designed to detect RNA from SARS-CoV-2 in nasopharyngeal (VENDING MACHINE ASSEMBLER) and oropharyngeal (OP) swabs from patients with [...] The above 1 analytes were performed by [facility] [address] [place] [address] Performed By: #### C OVID #### [facility] [address] [facility] [place] [address] [employer]: Samson Martinez DO [address] [address] [employer]: Omar Segundo MD [facility] [address] [place] [address] [employer]: Bill Jolly MD Surgical Pathologyon 020 Surgical [...] SURGICAL PATHOLOGY CONSULTATION Patient Name: LUL[facility] Rec: [id number] Path Number: [id number] [facility] ANATOMIC PATHOLOGY [address] [place] [id number] [facility] Comment on above: Performed By: #### P PPVS #### [address] [id number] [employer]: Omar Segundo MD [id number] 10-03-2019 SARS-CoV-2,Rapid [facility] Comment on above: Performed By: #### C OVID #### [facility] [address] [place] [address] [employer]: Samson Martinez DO [facility] [address] [place] [address] [employer]: Omar Segundo MD [facility] [address] [place] [address] [employer]: Bill Jolly MD SARS-CoV-2 Normal [facility] Comment on above: Performed By: #### C OVID #### [facility] [address] [facility] [place] [address] [employer]: Samson Martinez DO [facility] [address] [place] [address] [employer]: Omar Segundo MD [facility] [address] [place] [address] [employer]: Bill Jolly MD SARS-CoV-2 Source .NASOPHARYNGEAL SWAB Normal [facility] Comment on above: Performed By: #### C OVID #### [facility] [address] [facility] [place] [address] [employer]: Samson Martinez DO [facility] [address] [place] [id number] [employer]: Omar Segundo MD [facility] [address] [place] [address] [employer]: Bill Jolly MD XR ABDOMEN (KUB) (SINGLE AP VIEW)on 02-08-2019 Nonspecific nonobstructive bowel gas pattern. No definite calcified urinary tract stones are seen. [place] EXAMINATION: ONE SUPINE XRAY VIEW(S) OF [...] nonobstructive bowel gas pattern. No unusual calcifications. [place], [place] James, Mhpn Incoming Radiant Results From [place] [facility]/Pacs - 02/08/2019 4:29 PM EDT EXAMINATION: ONE [...] definite calcified urinary tract stones are seen. [place] Urinalysis with Microscopico n 02-06-2019 Amorphous, UA NOT REPORTED None [place] Bacteria, UA TRACE Abnormal None [place], [place] Bilirubin Urine Negative NEGATIVE [place] Casts UA NOT REPORTED /LPF [place] Color, UA YELLOW YELLOW [place] Crystals UA NOT REPORTED None /HPF [place] Epithelial Cells UA 2 TO 5 [place] Glucose, Ur Negative NEGATIVE [place] Interpretation and review of laboratory results Abnormal [place] Ketones Ql (U) Negative NEGATIVE [place] Leukocyte esterase Test strip Ql (U) Negative NEGATIVE [place] Mucus, UA 1+ Abnormal None [place] Nitrite, Urine Negative NEGATIVE [place] Other Observations UA NOT REPORTED NOT REQ. M [place] pH, UA 7.0 [place] Protein (U) [Mass/Vol] Negative NEGATIVE [place] RBC (U) [#/Vol] 0 TO 2 [place] Renal Epithelial, Urine NOT REPORTED 0 /HPF [place] Specific [place], UA 1.020 [place], [place] Trichomonas, UA NOT REPORTED None [facility] [place] [place] Turbidity UA CLEAR CLEAR [place] Urinalysis Comments NOT REPORTED [place] Urine Hgb TRACE Abnormal NEGATIVE [place] Urobilinogen, Urine Normal Normal [place] WBC, UA 0 TO 2 [place] Yeast, UA NOT REPORTED None [place], [place] - [place] Wet prep, genitalon 02-07-20 19 Direct Exam NO TRICHOMONAS SEEN [place] Direct Exam YEAST [place] Direct Exam CLUE CELLS SEEN Abnormal [place] Interpretation and review of laboratory results Abnormal [place] Special Requests NOT REPORTED [place] Specimen Description .VAGINA [place] Vital Signs Date Time Vital Sign Value Performing Clinician Facility 07-07-2023 10:35-0500 Body height 165.1 cm Matthew Lemus [employer] Work Phone: [facility] 07-07-2023 10:35-0500 Body mass index (BMI) [Ratio] 25.61 kg/m2 Matthew Lemus [employer] Work Phone: [facility] 07-07-2023 10:35-0500 Body temperature 97.7 [degF] Matthew Lemus [employer] Work Phone: [facility] 07-07-2023 10:35-0500 Body weight 69.81 kg Matthew Lemus [employer] Work Phone: [facility] 07-07-2023 10:35-0500 Diastolic blood pressure 70 mm[Hg] Matthew Lemus [employer] Work Phone: [facility] 07-07-2023 10:35-0500 Heart rate 100 /min Matthew Lemus [employer] Work Phone: [facility] 07-07-2023 10:35-0500 SaO2% (BldA) [Mass fraction] 96 % Matthew Lemus [employer] Work Phone: [facility] 07-07-2023 10:35-0500 Systolic blood pressure 100 mm[Hg] Matthew Karines DO Work Phone: [employer] 05-19-2023 15:36-0500 Diastolic blood pressure 59 mm[Hg] DO Matthew Marlenyhas Work Phone: [facility] 05-19-2023 15:36-0500 Heart rate 95 /min DO Matthew Farmerhas Work Phone: [facility] 05-19-2023 15:36-0500 Respiratory rate 16 /min DO Matthew Miltons Work Phone: [facility] 05-19-2023 15:36-0500 SaO2% (BldA) [Mass fraction] 99 % DO Matthew Miltons Work Phone: [facility] 05-19-2023 15:36-0500 Systolic blood pressure 109 mm[Hg] DO Matthew Farmerhas Work Phone: [facility] 05-19-2023 12:39-0500 Body height 165.1 cm DO Matthew Miltons Work Phone: [facility] 05-19-2023 12:39-0500 Body weight 70.76 kg DO Matthew Miltons Work Phone: [facility] 05-10-2023 11:11-0500 Diastolic blood pressure 78 mm[Hg] Rishi MARSHALL [facility] 05-10-2023 11:11-0500 Heart rate 72 /min Rishi MARSHALL [facility] 05-10-2023 11:11-0500 Systolic blood pressure 117 mm[Hg] Rishi MARSHALL [facility] 04-27-2023 13:30-0500 Body height 166.37 cm Imad Asaedie Other [employer] Other 04-27-2023 13:30-0500 Body mass index (BMI) [Ratio] 25.71 kg/m2 Imad Asaad Other [employer] Other 04-27-2023 13:30-0500 Body weight 71.17 kg Imad Asaad Other [employer] Other 02-11-2023 18:20-0400 Body height 166.37 cm Sarah Alcieamond Other [employer] Other 02-11-2023 18:20-0400 Body mass index (BMI) [Ratio] 27.69 kg/m2 Sarah Monica Other [employer] Other 02-11-2023 18:20-0400 Body temperature 98.1 [degF] Sarah Monica Other [employer] Other 02-11-2023 18:20-0400 Body weight 76.66 kg Sarah Monica Other [employer] Other 02-11-2023 18:20-0400 Diastolic blood pressure 78 mm[Hg] Sarah Monica Other [employer] Other 02-11-2023 18:20-0400 Respiratory rate 18 /min Sarah Monica Other [employer] Other 02-11-2023 18:20-0400 SaO2% (BldA) [Mass fraction] 99 % Sarah Monica Other [employer] Other 02-11-2023 18:20-0400 Systolic blood pressure 116 mm[Hg] Sarah Monica Other [employer] Other 02-06-2023 07:30-0400 Body temperature 98.1 [degF] DO Matthew Miltons Work Phone: [facility] 02-06-2023 07:30-0400 Diastolic blood pressure 60 mm[Hg] DO Matthew Farmerhas Work Phone: [facility] 02-06-2023 07:30-0400 Heart rate 83 /min DO Matthew Miltons Work Phone: [facility] 02-06-2023 07:30-0400 Respiratory rate 18 /min DO Matthew Miltons Work Phone: [facility] 02-06-2023 07:30-0400 SaO2% (BldA) [Mass fraction] 97 % DO Matthew Miltons Work Phone: [facility] 02-06-2023 07:30-0400 Systolic blood pressure 102 mm[Hg] DO Matthew Lemus Work Phone: [facility] 02-03-2023 14:17-0400 Body height 165.1 cm DO Matthew Lemus Work Phone: [facility] 02-02-2023 23:53-0400 Body weight 74.15 kg DO Matthew Lemus Work Phone: [facility] 06-30-2022 23:12-0500 Diastolic blood pressure 56 mm[Hg] Courtney Vaughan MD Work Phone: [employer] 06-30-2022 23:12-0500 Heart rate 88 /min Courtney Vaughan MD Work Phone: [employer] 06-30-2022 23:12-0500 Respiratory rate 16 /min Courtney Vaughan MD Work Phone: [employer] 06-30-2022 23:12-0500 Systolic blood pressure 100 mm[Hg] Courtney Vaughan MD Work Phone: [employer] 06-30-2022 22:21-0500 Body height 165.1 cm Courtney Vaughan MD Work Phone: [employer] 06-30-2022 21:13-0500 SaO2% (BldA) [Mass fraction] 98 % Corutney Vaughan MD Work Phone: [employer] 06-30-2022 18:31-0500 Body mass index (BMI) [Ratio] 28.96 kg/m2 Courtney Vaughan MD Work Phone: [employer] 06-30-2022 18:31-0500 Body weight 78.93 kg Courtney Vaughan MD Work Phone: [employer] 06-30-2022 18:27-0500 Body temperature 98.4 [degF] Courtney Vaughan MD Work Phone: [employer] 06-17-2022 17:10-0500 Diastolic blood pressure 65 mm[Hg] Bridgette Guilla[employer]Wize 06-17-2022 17:10-0500 Systolic blood pressure 114 mm[Hg] Bridgette Lewis [employer] 06-17-2022 17:10-0500 Systolic blood pressure 110 mm[Hg] Bridgette Lewis [employer] 06-17-2022 17:00-0500 Body height 166.37 cm Bridgette Ortega [employer] [facility] 06-17-2022 17:00-0500 Body mass index (BMI) [Ratio] 28.43 kg/m2 Bridgette Lewis [employer] 06-17-2022 17:00-0500 Body surface area Derived from formula 1.91 m2 Bridgette Lewis [employer] 06-17-2022 17:00-0500 Body weight 78.7 kg Bridgette [employer] 06-17-2022 17:00-0500 Body weight 0.1 {percentile} Bridgette [employer] 06-17-2022 17:00-0500 Diastolic blood pressure 70 mm[Hg] Bridgette Ortega [employer] 06-17-2022 17:00-0500 Heart rate 72 /min Bridgette Ortega [employer] 06-17-2022 17:00-0500 Systolic blood pressure 118 mm[Hg] Bridgette [employer] 06-15-2022 17:35-0500 Body temperature 98.1 [degF] Maricel [employer] 06-15-2022 17:35-0500 Body weight 77.57 kg Maricel [employer] 06-15-2022 17:35-0500 Diastolic blood pressure 62 mm[Hg] [employer] 06-15-2022 17:35-0500 Heart rate 80 /min [employer] 06-15-2022 17:35-0500 Respiratory rate 16 /min [employer] 06-15-2022 17:35-0500 Systolic blood pressure 110 mm[Hg] [employer] 05-17-2022 11:45-0500 SaO2% (BldA) [Mass fraction] 98 % [employer] 05-17-2022 10:59-0500 Body height 166.37 cm [employer] 05-17-2022 10:59-0500 Body mass index (BMI) [Ratio] 28.19 kg/m2 Maricel [employer] 05-17-2022 10:59-0500 Body surface area Derived from formula 1.9 m2 Maricel [employer] 05-17-2022 10:59-0500 Body temperature 98.5 [degF] Maricel [employer] 05-17-2022 10:59-0500 Body weight 78.02 kg Maricel [employer] 05-17-2022 10:59-0500 Body weight 0.1 {percentile} Maricel [employer] 05-17-2022 10:59-0500 Diastolic blood pressure 60 mm[Hg] Maricel [employer] 05-17-2022 10:59-0500 Heart rate 90 /min Maricel [employer] 05-17-2022 10:59-0500 Respiratory rate 18 /min Maricel [employer] 05-17-2022 10:59-0500 Systolic blood pressure 112 mm[Hg] Maricel [employer] 02-10-2022 20:45-0400 Diastolic blood pressure 64 mm[Hg] DO Matthew Lemus Work Phone: [facility] 02-10-2022 20:45-0400 Heart rate 81 /min DO Matthew Marlenyhas Work Phone: [facility] 02-10-2022 20:45-0400 Respiratory rate 16 /min DO Matthew Farmerhas Work Phone: [facility] 02-10-2022 20:45-0400 SaO2% (BldA) [Mass fraction] 99 % DO Matthew Karines Work Phone: [facility] 02-10-2022 20:45-0400 Systolic blood pressure 100 mm[Hg] DO Matthew Lemus Work Phone: [facility] 02-10-2022 14:17-0400 Body height 165.1 cm DO Matthew Lemus Work Phone: [facility] 02-10-2022 14:17-0400 Body weight 81.64 kg DO Matthew Lemus Work Phone: [facility] 02-09-2022 10:01-0400 Body height 166.37 cm Kaleigh Ippies 02-09-2022 10:01-0400 Diastolic blood pressure 64 mm[Hg] Kaleigh Ismael [employer] 02-09-2022 10:01-0400 Heart rate 120 /min Kaleighjacob Guevara [employer] 02-09-2022 10:01-0400 Systolic blood pressure 118 mm[Hg] Kaleigh Guevara [employer] 01-29-2022 11:30-0400 Body height 166.37 cm Bridgette [employer] 01-29-2022 11:30-0400 Diastolic blood pressure 62 mm[Hg] Bridgetteko Lewis [employer] 01-29-2022 11:30-0400 Heart rate 100 /min Bridgette Lewis [employer] 01-29-2022 11:30-0400 Systolic blood pressure 114 mm[Hg] Bridgette Lewis [employer] 01-25-2022 10:30-0400 Body height 166.37 cm Tae Natarajan Other [employer] Other 01-25-2022 10:30-0400 Body mass index (BMI) [Ratio] 29.49 kg/m2 Tae Stanleyreaugie Other [employer] Other 01-25-2022 10:30-0400 Body temperature 97.8 [degF] Tae Natarajan Other [employer] Other 01-25-2022 10:30-0400 Body weight 81.65 kg Tae Stanleyreaugie Other [employer] Other 01-25-2022 10:30-0400 Diastolic blood pressure 64 mm[Hg] Tae Stanleyrer Other [employer] Other 01-25-2022 10:30-0400 SaO2% (BldA) [Mass fraction] 99 % Tae Tsaiaugie Other [employer] Other 01-25-2022 10:30-0400 Systolic blood pressure 110 mm[Hg] Tae Stanleyrer Other [employer] Other 01-19-2022 10:59-0400 Body height 166.37 cm Bridgette Ortega [employer] 01-19-2022 10:59-0400 Body mass index (BMI) [Ratio] 29.5 kg/m2 Bridgette [employer] 01-19-2022 10:59-0400 Body surface area Derived from formula 1.94 m2 Bridgette [employer] 01-19-2022 10:59-0400 Body weight 81.65 kg Bridgette [employer] 01-19-2022 10:59-0400 Diastolic blood pressure 72 mm[Hg] Bridgette Ortega [employer] 01-19-2022 10:59-0400 Heart rate 112 /min Bridgette Ortega [facility] [email or web address] 01-19-2022 10:59-0400 Systolic blood pressure 114 mm[Hg] Bridgette Ortega [employer] 10-11-2021 18:26-0400 Diastolic blood pressure 77 mm[Hg] Matthew Lemus Work Phone: [email or web address] 10-11-2021 18:26-0400 Systolic blood pressure 130 mm[Hg] Matthew Lemus Work Phone: [email or web address] 10-11-2021 14:00-0400 Body mass index (BMI) [Ratio] 28.46 kg/m2 Matthew Lemus Work Phone: [email or web address] 10-11-2021 14:00-0400 Body temperature 97.81 [degF] Matthew Lemus Work Phone: [email or web address] 10-11-2021 14:00-0400 Body weight 77.56 kg Matthew Lemus Work Phone: [email or web address] 10-11-2021 14:00-0400 Heart rate 95 /min Matthew Lemus Work Phone: [email or web address] 10-11-2021 14:00-0400 Respiratory rate 16 /min Matthew Lemus Work Phone: [email or web address] 10-11-2021 14:00-0400 SaO2% (BldA) [Mass fraction] 98 % Matthew Lemus Work Phone: [email or web address] 09-29-2021 13:04-0400 Blood Pressure Location Rishi MARSHALL [facility] [place] 09-29-2021 13:04-0400 Diastolic blood pressure 83 mm[Hg] Rishi MARSHALL [facility] [place] 09-29-2021 13:04-0400 Heart rate 100 /min Rishi MASRHALL [facility] [place] 09-29-2021 13:04-0400 Systolic blood pressure 124 mm[Hg] Rishi MARSHALL [facility] [place] 09-04-2021 09:22-0400 Blood Pressure Location Rishimaricel MARSHALL [facility] [place] 09-04-2021 09:22-0400 Diastolic blood pressure 67 mm[Hg] Rishi MARSHALL [facility] [place] 09-04-2021 09:22-0400 Heart rate 78 /min [facility] 09-04-2021 09:22-0400 Respiratory rate 16 /min Rishimaricel [facility]ALL [facility] 09-04-2021 09:22-0400 Systolic blood pressure 97 mm[Hg] [facility] 03-16-2020 15:12-0400 BMI (Body Mass Index) 25.96 kg/m2 Catracho Parisi [facility] 03-16-2020 15:12-0400 Body Temperature 99 [degF] Catracho Isak [facility], [place] 03-16-2020 15:12-0400 Body weight 70.76 kg [facility] [place] [place] 03-16-2020 15:12-0400 BP Diastolic 69 mm[Hg] Cat[facility]acho [facility] [place] 03-16-2020 15:12-0400 BP Systolic 125 mm[Hg] Cat[facility]acho [facility] [place] 03-16-2020 15:12-0400 Pulse (Heart Rate) 77 /min [facility]acho [facility] [place] 03-16-2020 15:12-0400 Pulse Oximetry 99 % Catracho Paris[facility] [place] 03-16-2020 15:12-0400 Respiratory Rate 18 /min Cat[facility]acho Paris[facility] [place] 10-05-2019 13:30-0400 Body Temperature 98.1 [degF] [place] 10-05-2019 13:30-0400 BP Diastolic 72 mm[Hg] [place] 10-05-2019 13:30-0400 BP Systolic 110 mm[Hg] [place] 10-05-2019 13:30-0400 Pulse (Heart Rate) 76 /min [place] 10-05-2019 13:30-0400 Pulse Oximetry 100 % [place] 10-05-2019 13:30-0400 Respiratory Rate 18 /min [place] 10-05-2019 10:26-0400 BMI (Body Mass Index) 24.37 kg/m2 [place] 10-05-2019 10:26-0400 Body weight 68.49 kg [place] 10-05-2019 10:26-0400 Height 167.6 cm [place] Encounters Encounter Date Encounter Type Care Provider Facility Start: 02-15-2024 End: 02-15-2024 ambulatory DO Matthew Lemus Work Phone: [facility] Work Phone: Start: 02-15-2024 End: 02-15-2024 Departed Referred DO Matthew Lemus Work Phone: [facility] Start: 02-09-2024 End: 02-09-2024 ambulatory MATTHEW Maury [facility] Start: 02-09-2024 Encounter for genera l adult medical examination without abnormal findings [facility] Start: 01-23-2024 End: 01-24-2024 [facility] Start: 01-23-2024 End: 01-23-2024 Emergency department patient visit [facility]THEW [facility] Start: 01-16-2024 End: 01-16-2024 Departed Referred DO Matthew Miltonoliva Work Phone: [facility] Path [facility] Start: 01-16-2024 End: 01-16-2024 ambulatory RON BIANCA Not Available Start: 01-11-2024 End: 01-11-2024 Emergency department patient visit [facility] Start: 01-10-2024 End: 01-10-[address] [facility] Start: 01-10-2024 End: 01-10-2024 ambulatory [facility] Start: 01-07-2024 End: 01-08-2024 Emergency department patient visit [facility] Start: 12-29-2023 End: 12-29-2023 Patient encounter procedure DO Matthew Marlenyjulien Work Phone: [facility] Work Phone: Start: 12-29-2023 End: 12-29-2023 ambulatory DO Matthew Karineoliva Work Phone: [facility] Work Phone: Start: 12-29-2023 ambulatory [facility] Start: 12-06-2023 End: 12-06-2023 ambulatory [facility] Start: 11-21-2023 End: 11-21-2023 ambulatory [facility] Start: 11-20-2023 End: 11-20-2023 Emergency department patient visit BRIDGETTE Adarsh [facility] Start: 11-19-2023 End: 11-20-2023 Emergency department patient visit IFTIKHAR CURRY [facility] Start: 11-17-2023 End: 11-17-2023 Emergency department patient visit BRIDGETTE A [facility] Start: 11-08-2023 End: 11-08-2023 ambulatory Rishi MARSHALL Facility:[facility] Start: 11-08-2023 End: 11-08-2023 Patient encounter procedure Rishi MARSHALL [facility] Start: 11-08-2023 End: 11-08-2023 ambulatory RON BIANCA Not Available Start: 11-01-2023 End: 11-01-2023 ambulatory RON BIANCA Not Available Start: 09-27-2023 End: 09-27-2023 ambulatory Rishi MARSHALL Facility:[facility] Start: 09-27-2023 End: 09-27-2023 Patient encounter procedure Rishi MARSHALL [facility] Start: 08-04-2023 End: 08-04-2023 ambulatory AUDELIA BATISTAEY Not Available Start: 07-27-2023 End: 07-27-2023 ambulatory RON BIANCA Not Available Start: 07-07-2023 End: 07-07-2023 ambulatory [facility] Start: 07-07-2023 End: 07-07-2023 Office outpatient visit 25 minutes [facility] DO Work Phone: [facility] - [facility] Comment on above: Bipolar 1 disorder ( [facility]) (Primary Dx); Oropharyngeal dysphagia; Generalized anxiety disorder with panic attacks Start: 07-04-2023 End: 07-04-2023 ambulatory RON BIANCA Not Available Start: 06-29-2023 End: 06-29-2023 ambulatory RON BIANCA Not Available Start: 06-13-2023 End: 06-13-2023 ambulatory RON BIANCA Not Available Start: 06-02-2023 End: 06-02-2023 ambulatory JORGE LAMAS [facility] Start: 05-19-2023 End: 05-19-2023 Admission to same day surgery center DO Matthew Lemus Work Phone: [facility] Work Phone: Start: 05-19-2023 End: 05-19-2023 ambulatory DO Matthew Lemus Work Phone: [facility] Work Phone: Start: 05-17-2023 End: 05-17-2023 ambulatory Imad Asaad Other [employer] Other Start: 05-17-2023 Telephone encounter Imad Asaad [facility] Start: 05-12-2023 End: 05-12-2023 Patient encounter procedure DO aMtthew Lemus Work Phone: [facility] [place] Work Phone: Start: 05-12-2023 End: 05-12-2023 ambulatory DO Matthew Lemus Work Phone: [facility] Work Phone: Start: 05-10-2023 End: 05-10-2023 ambulatory Rishi MARSHALL Facility: [facility] Start: 05-10-2023 End: 05-10-2023 Patient encounter procedure Rishi MARSHALL [facility] Start: 04-27-2023 End: 04-27-2023 ambulatory Imad Asaad Other [employer] Other Start: 04-27-2023 Office outpatient ne w 45 minutes Imad Asaad [facility] Start: 04-14-2023 End: 04-14-2023 ambulatory BRIDGETTE LEWIS Facility:[id number] Start: 03-10-2023 End: 03-10-2023 Emergency department patient visit BRIDGETTE LEWIS [facility] Start: 02-11-2023 End: 02-11-2023 ambulatory Sarah Anderson Other [employer] Other Start: 02-11-2023 Office outpatient visit 15 minutes Sarah Anderson [facility] Start: 02-03-2023 Telephone encounter Christine Macias DO Work Phone: Gastroenterology Comment on above: Appointment Start: 02-02-2023 End: 02-06-2023 Evaluation and management of inpatient DO Matthew Lemus Work Phone: [facility] Work Phone: Start: 09-23-[address] RON VALENZUELA . Facili ty:[facility] Start: 09-16-2022 End: 09-16-[address] BRIDGETTE KRAUSE . Facility:[facility] Start: 09-04-2022 End: 09-04-2022 ambulatory CHUY MCNAMARA Facility:[facility] Start: 08-30-2022 End: 08-31-[address] RON VALENZUELA . Facility:[facility] Start: 08-17-2022 End: 08-18-[address] RNO VALENZUELA . Facility:[facility] Start: 07-21-2022 End: 07-21-[address] RON VALENZUELA . Facility:[facility] Start: 07-20-2022 End: 07-21-[address] RON VALENZUELA . Facility:[facility] Start: 07-06-2022 End: 07-06-[address] MATTHEW LEMUS Facility:[facility] Start: 06-30-2022 End: 07-01-2022 Emergency department patient visit Courtney Vaughan MD Work Phone: [facility] Labor and Delivery Comment on above: Hyperemesis (Primary Dx); Pelvic cramping Start: 06-22-2022 End: 01-24-2023 ambulatory AUDELIA HOBBS . Facility:[facility]1 Start: 06-21-2022 Office Services Bridgette lindsay Other [facility] Start: 06-18-2022 Office Services Bridgette lindsay Other [facility] Start: 06-17-2022 Office outpatient visit 15 minutes Bridgette Lewis Other [facility] Start: 06-15-2022 Office outpatient visit 15 minutes Maricel Stafford Other [facility] Start: 06-15-2022 Office Services Maricel Stafford Other [facility] Start: 06-09-[address] MATTHEW LEMUS Facility: [facility]1 Start: 06-05-2022 End: 06-06-[address] MATTHEW LEMUS Facility:[facility]1 Start: 05-26-2022 End: 05-27-[address] MATTHEW LEMUS Facility:[facility]1 Start: 05-17-2022 Office consultation new/estab patient 60 min Maricel Stafford Other [facility] Start: 04-30-2022 End: 05-01-[address] MATTHEW LEMUS Facility:[facility]1 Start: 04-08-2022 End: 04-09-[address] MATTHEW LEMUS Facility:[facility]1 Start: 03-29-2022 Lab Bridgette lindsay Other [facility] Start: 03-22-2022 End: 03-23-[address] MATTHEW LEMUS Facility:[facility]1 Start: 03-17-2022 Lab Kaleigh Hernandez ams Other [facility] Start: 03-03-2022 End: 03-04-[address] MATTHEW LEMUS Facility:[facility]1 Start: 02-10-2022 End: 02-10-2022 Admission to same day surgery center DO Matthew Lemus Work Phone: [facility] Start: 02-09-2022 Patient encounter procedure Kaleigh Guevara [facility] Start: 02-09-2022 Periodic preventive med est patient 18-39 yrs Kaleigh Guevara Other [facility] Start: 02-04-2022 Encounter for genera l adult medical examination without abnormal findings Bridgette Lewis [employer]rock Ad[employer] Start: 02-04-2022 Lab Bridgette lindsay Other [facility] Start: 02-04-2022 Office Services Kaleigh Hernandez ams Other [facility] Start: 01-29-2022 Office outpatient visit 15 minutes Bridgette Lweis Other [facility] Start: 01-25-2022 End: 01-25-2022 ambulatory Tae Natarajan Other [employer] Other Start: 01-25-2022 Office outpatient ne w 45 minutes Tae MCCORMICK [facility] Start: 01-19-2022 Office outpatient ne w 30 minutes Bridgette Lewis Other [facility] Start: 12-17-2021 Encounter for genera l adult medical examination without abnormal findings Frock Advisor Start: 12-04-2021 End: 12-05-[address] MATTHEW LEMUS Facility:[facility]1 Start: 11-14-2021 End: 11-14-[address] MATTHEW LEMUS Facility:[facility]1 Start: 10-12-2021 End: 10-12-2021 Subsequent hospital visit by physician Matthew Lemus Work Phone: [facility] Laboratory Start: 10-11-2021 End: 10-11-2021 Emergency department patient visit Matthew Lemus Work Phone: [facility] ED Comment on above: Lower abdominal pain (Primary Dx) Start: 10-09-2021 End: 10-10-[address] MATTHEW LEMUS Facility:H1 Start: 09-29-2021 End: 09-29-2021 Patient encounter procedure Rishi MARSHALL [facility] Amira Start: 09-04-2021 End: 09-04-2021 Patient encounter procedure Rishi Augie MARSHALL [facility] Dina Start: 03-16-2020 End: 03-16-2020 Emergency department patient visit Catracho Parisi Work Phone: [facility] ED Comment on above: Viral URI [...] encounter procedure [facility] Start: 10-12-2019 End: 10-14-2019 Subsequent hospital visit by physician Juan A Laguerre Room 2 [facility] Nuclear Medicine Comment on above: Intractable nausea a nd vomiting Start: 10-05-2019 End: 10-05-2019 Patient encounter procedure [facility] Start: 10-05-2019 End: 10-05-2019 Subsequent hospital visit by physician Toño Blanc Work Phone: [facility] Start: 10-03-2019 End: 10-04-2019 Patient encounter procedure BRIANA RUBIO [facility] Start: 10-03-2019 End: 10-03-2019 Subsequent hospital visit by physician Lisseth CRUZZ [place] [facility] Start: 10-02-2019 End: 10-02-2019 Subsequent hospital visit by physician Tonio Covid19 Pat Screening Schedule [facility] Pre-Admit Testing Comment on above: No Show Start: 02-08-2019 End: 02-10-2019 Subsequent hospital visit by physician Khalida Grey Dr Room 2 [facility] Radiology Comment on above: Gross hematuria; Urgency of urination Start: 02-06-2019 End: 02-06-2019 Subsequent hospital visit by physician Lisseth MAGALLANES Laboratory Comment on above: Gross hematuria; Urgency of urination Start: 01-15-2019 End: 01-15-2019 Subsequent hospital visit by physician Lisseth Johnson [facility] Laboratory Comment on above: Dysuria; Gross hematuria [...] Lewis Start: 06-17-2022 Docrev cur meds by [facility] Bridgette mcarthur Start: 06-17-2022 Erythrocyte mean corpuscular volume determination Bridgette Lewis Start: 06-17-2022 Urinalysis, automated Bridgette Lewis Start: 06-15-2022 Docrev cur meds by [facility] Maricel Stafford Start: 06-15-2022 Spirometry for bronchospasm with prolonged evaluation after bronchodilator Bridgette Lewis Start: 05-17-2022 Docrev cur meds by [facility] Maricel Stafford Start: 05-17-2022 Measurement of nitric oxide Maricel Stafford Start: 03-29-2022 Human chorionic gonadotropin measurement Maricel Stafford Start: 03-17-2022 Human chorionic gonadotropin measurement Bridgette Debbie Start: 02-10-2022 Abdominal aortogram DO Matthew Farmerjulien Work Phone: Start: 02-09-2022 Docrev cur meds by [facility] Kaleigh Arteaga ia Start: 02-04-2022 Comprehensive metabolic panel Kaleigh Lee lia Start: 02-04-2022 Erythrocyte mean corpuscular volume determination Kaleigh Guevara Start: 02-04-2022 Lipid panel Kaleigh Guevara Start: 02-04-2022 Radiologic exam chest 2 views Bridgette sanford Start: 02-04-2022 Thyroid stimulating hormone measurement Kaleigh Guevara Start: 02-04-2022 Urinalysis, automated Kaleigh Guevara Start: 01-29-2022 Docrev cur meds by [facility] Bridgette mcarthur Start: 01-19-2022 Docrev cur meds by [facility] Bridgette mcarthur Start: 01-19-2022 Ketorolac tromethamine [...] Urine test visual color cmprsn meths Christine Sheppard Work Phone: Start: 09-29-2021 Cystoscopy Rishi ROLANDO Start: 03-16-2020 Radiologic exam chest single view [...] BLANC Start: 10-05-2019 Continuous pulse oximetry TOÑO YIMeli Mcarthur Start: 10-05-2019 ENCOURAGE DEEP BREATHING AND COUGHING TOÑO BLANC Start: 10-05-2019 INITIATE OXYGEN THERAPY PROTOCOL BANEGAS JAYASHREE Start: 10-05-2019 NOTIFY PHYSICIAN (SPECIFY) BANEGAS KASSIDY NANCY Start: 10-05-2019 NURSING COMMUNICATION TOÑO [...] Vaccines (10 - Td or Tdap) [facility] Start: 04-09-2026 HIV screen HIV screen [place], [place] Comment on above: Postponed from 2012 (Unavailable) Start: 04-09-2026 HIV screening HIV screen [facility] Comment on above: Postponed from 2012 (Unavailable) Start: 11-10-2025 DTaP/Tdap/Td vaccine (5 - Td or Tdap) DTaP/Tdap/Td vaccine (5 - Td or Tdap) [facility] Start: 11-10-2025 DTaP/Tdap/Td vaccine (6 - Tdap) DTaP/Tdap/Td vaccine (6 - Tdap) [place] Start: 07-07-2024 Adult BMI Screening Adult BMI Screening [facility] Start: 07-07-2024 Depression Screening Depression Screening [facility] Start: 07-07-2024 Tobacco Screening Tobacco Screening [facility] Start: 01-16-2024 [facility] Start: 12-29-2023 [facility] Start: 05-19-2023 [facility] Start: 02-06-2023 [facility] Start: 02-02-2023 Hospital admission [facility] Start: 01-28-2023 COVID-19 Vaccine ( season) COVID-19 Vaccine () [facility] Start: 01-28-2023 Influenza vaccination [facility] Start: 08-09-2022 Lipid panel Lipid panel [facility] [employer] Start: 08-09-2022 Transferase alanine amino alt sgpt ALT [employer] Ad[employer] Start: 08-09-2022 Transferase aspartate amino ast sgot AST [employer] [employer] Start: 06-21-2022 Iv infusion hydration initial 31 min-1 hour IV HYDRATION,INITIAL,31 MINUTES TO 1 HOUR [employer] Ad[employer] Start: 06-17-2022 Basic metabolic panel calcium total Chem 8 [employer] Start: 06-15-2022 Brncdilat rspse spmtry pre&post-brncdilat admn Spirometry with bronchodilator [employer] Start: 05-30-2022 DEPRESSION ASSESSMENT DEPRESSION ASSESSMENT [facility] Start: 05-17-2022 Nitric oxide gas determination FENO [employer] Advisor Start: 04-03-2022 Depression Monitoring Depression Monitoring [facility] Start: 03-29-2022 Gonadotropin chorionic quantitative Beta HCG Quantitative [employer] Start: 03-17-2022 Gonadotropin chorionic quantitative Beta HCG Quantitative [employer] Start: 02-10-2022 [facility] Work Phone: Start: 02-04-2022 Assay of thyroid stimulating hormone tsh TSH [employer] Ad[employer] Start: 02-04-2022 Blood count complete automated CBC PLATELET COUNT; AUTOMATED [employer] Start: 02-04-2022 Comprehensive metabolic panel Comp [employer] Advisor Start: 02-04-2022 Lipid panel Lipid panel [employer] Start: 02-04-2022 Urnls dip stick/tablet rgnt auto w/o microscopy UA [employer] Ad[employer] Start: 02-04-2022 Chest PA & LAT [employer] Ad[employer] Start: 01-19-2022 Therapeutic prophylactic/dx injection subq/im Sub Q/ IM injection [facility] Start: 12-28-2021 Influenza vaccination Flu vaccine (#1) [facility] Start: 12-23-2021 Skin test tuberculosis intradermal PPD (Skin test; tuberculosis, intradermal) [facility] [employer] Start: 07-29-2021 COVID-19 Vaccine (3 - Booster for Pfizer series) COVID-19 Vaccine (3 - Booster for Pfizer series) [facility] Start: 05-12-2021 COVID-19 Vaccine (5 - Booster) COVID-19 Vaccine (5 - Booster) [facility] Start: 03-03-2020 End: 03-03-2020 Office Visit 03/03/2020 Office Visit Urology Jose Lala MD [address] [place] [address], [address] [place] [address] [facility] Start: 02-07-2020 Chlamydia screen Chlamydia screen [place], [place] Start: 02-07-2020 Screening for Chlamydia trachomatis Chlamydia screen [facility] Start: 01-29-2020 Influenza vaccination [place] Start: 11-04-2019 Chlamydia screen Chlamydia screen [place] Start: 10-05-2019 End: 10-05-2019 Hospital Encounter [facility] Comment on above: EGD ESOPHAGOGASTRODUODENOSCOPY Start: 02-20-2019 End: 02-20-2019 Office Visit 02/20/2019 Office Visit 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, FEATHER STITCHER - OUTPATIENT CASE MANAGER [address] [facility] [address] [place] [id number] [facility] Start: 02-08-2019 End: 02-08-2019 Appointment 02/08/2019 Appointment Radiology [facility] Start: 01-28-2019 Influenza vaccination Flu vaccine (#1) [place] Start: 2018 Cervical cancer screen Cervical cancer screen [place] Start: 2018 PAP TESTING PAP TESTING [facility] Start: 2018 Screening for malignant neoplasm of cervix [facility] Start: 2016 Urine microalbumin profile DTAP,TDAP,TD (1 - Tdap) [facility] Start: 2015 Adult BMI Follow Up Plan Adult BMI Follow Up Plan [facility] Start: 2015 Hepatitis C screening Hepatitis C screen [facility] Start: 2015 HEPATITIS C SCREENING HEPATITIS C SCREENING [facility] Start: 2015 HIV SCREENING HIV SCREENING [facility] Start: 02-05-2014 Varicella vaccine (2 of 2 - 13+ 2-dose series) Varicella vaccine (2 of 2 - 13+ 2-dose series) [facility] Start: 2012 HPV vaccine (1 - Female 3-dose series) HPV vaccine (1 - Female 3-dose series) [place] Start: 2011 PEDS TO ADULT TRANSITION ANNUAL ASSESSMENT PEDS TO ADULT TRANSITION ANNUAL ASSESSMENT [facility] Start: 2010 Varicella Vaccine (1 of 2 - 13+ 2-dose series) Varicella Vaccine (1 of 2 - 13+ 2-dose series) [place] Start: 2009 PEDS TO ADULT TRANSITION INITIAL DISCUSSION PEDS TO ADULT TRANSITION INITIAL DISCUSSION [facility] Start: 2008 HPV vaccine (1 - 2-dose series) HPV vaccine (1 - 2-dose series) [facility] Start: 2006 HPV VACCINE (1 - 2-dose series) HPV VACCINE (1 - 2-dose series) [facility] Start: 2003 Pneumococcal 0-64 years Vaccine (1 - PCV) Pneumococcal 0-64 years Vaccine (1 - PCV) [facility] Start: 2003 Pneumococcal 0-64 years Vaccine (1 of 1 - PPSV23) Pneumococcal 0-64 years Vaccine (1 of 1 - PPSV23) [place] Start: 1998 Varicella vaccine (1 of 2 - 2-dose childhood series) Varicella vaccine (1 of 2 - 2-dose childhood series) [place] Start: 1997 COVID-19 VACCINE (#1) COVID-19 VACCINE (#1) [facility] Start: 1997 HEPATITIS B (1 of 3 - 3-dose series) HEPATITIS B (1 of 3 - 3-dose series) [facility] End: 01-15-2019 Bacteria identified Cx Nom (U) Urine Culture Microbiology Routine Dysuria Gross hematuria 1 Occurrences starting 01/15/2019 until 01/15/2019 [place] Comment on above: 1 Occurrences starting 01/15/2019 until 01/15/2019 End: 02-06-2019 C.trachomatis N.gonorrhoeae DNA, Urine C.trachomatis N.gonorrhoeae DNA, Urine Microbiology Routine Gross hematuria Urgency of urination 1 Occurrences starting 02/06/2019 until 02/06/2019 [place] Comment on above: 1 Occurrences starting 02/06/2019 until 02/06/2019 C.trachomatis N.gono rrhoeae DNA, Urine C.trachomatis N.gonorrhoeae DNA, Urine Microbiology Routine Gross hematuria Urgency of urination 02/06/2019 12:22 PM EDT [place] COVID-19 [facility] End: 10-02-2019 COVID-19 COVID-19 Lab Routine One Time for 1 Occurrences starting 10/02/2019 until 10/02/2019 [place] Comment on above: One Time for 1 Occurrences starting 09/2019 until 10/02/2019 End: 03-07-2020 COVID-19 Ambulatory COVID-19 Ambulatory Lab Routine Acute frontal sinusitis, recurrence not specified 1 Occurrences starting 03/07/2020 until 03/07/2020 [place] Comment on above: 1 Occurrences starting 03/07/2020 until 03/07/2020 COVID-19 Ambulatory COVID-19 Amb ulatory Lab Routine Acute frontal sinusitis, recurrence not specified 03/07/2020 11:12 AM EDT [place] End: 03-16-2020 COVID-19, PCR COVID-19, PCR Lab Routine One Time for 1 Occurrences starting 03/16/2020 until 03/16/2020 [place] Comment on above: One Time for 1 Occurrences starting 02/27 until 03/16/2020 End: 03-03-2020 Culture, Urine Culture, Urine Microbiology Routine Gross hematuria 1 Occurrences starting 03/03/2020 until 03/03/2020 [place] Comment on above: 1 Occurrences starting 03/03/2020 until 03/03/2020 Culture, Urine [place] End: 06-30-2022 Culture, Urine [facility] Work Phone: Comment on above: One Time for 1 Occurrences starting 05/2022 until 06/30/2022 [facility]: Release Upon Ordering for 1 Occurrences starting 10/05/2019 Initiate Oxygen Therapy Protocol Initiate Oxygen Therapy Protocol Respiratory Care Routine Daily until discontinued starting 10/05/2019 [facility] Comment on above: Daily until discontinued starting 2019 Patient Education Depression, Ad ult (DC) [facility] Behavioral Health DC Instructions [facility] Work Phone: Patient referral [facility] Work Phone: Phase I & II - metered glucose P hase I & II - metered glucose Point of Care Testing Routine As Needed until discontinued starting 10/05/2019 [facility] Comment on above: As Needed until discontinued starting End: 10-05-2019 POC Urine Qual POC Urine Qual Point of Care Testing Routine One Time for 1 Occurrences starting 10/05/2019 until 10/05/2019 [facility] Comment on above: One Time for 1 Occurrences starting 12/2019 until 10/05/2019 Surgical Pathology Surgical Path ology Lab Routine Release Upon Ordering for 1 Occurrences starting 10/05/2019 [facility] Comment on above: Release Upon Ordering for 1 Occurrences starting 10/05/2019 End: 02-06-2019 Urine culture clean catch Urine culture clean catch Microbiology Routine Gross hematuria Urgency of urination 1 Occurrences starting 02/06/2019 until 02/06/2019 [facility] Comment on above: 1 Occurrences starting 02/06/2019 until 02/06/2019 Urine culture clean catch Urine culture clean catch Microbiology Routine Gross hematuria Urgency of urination 02/06/2019 12:22 PM EDT [facility] Immunizations Immunization Date Immunization Notes Care Provider Fa francis 09-23-2022 RHO(D) immune globulin- IV or IM Matthew Lemus DO Work Phone: [facility] 09-17-2022 RHO(D) immune globulin- IV or IM Matthew Lemus DO Work Phone: [facility] 09-17-2022 tetanus toxoid, reduced diphtheria toxoid, and acellular pertussis vaccine, adsorbed Rishi MARSHALL [facility] 01-05-2022 [facility] 12-23-[address] [facility] 04-28-2021 influenza virus vaccine, unspecified formulation Rishi MARSHALL [facility] 04-28-2021 influenza, injectabl e, quadrivalent, preservative free Matthew Lemus DO Work Phone: [facility] 03-17-2021 COVID-19, Pfizer, 30mcg/0.3ml Bridgette Debbie [employer] 02-28-2021 SARS-CoV-2 (COVID-19 ) mRNA BNT-162b2 vax Rishi MARSHALL [facility] 02-27-2021 SARS-CoV-2 (COVID-19 ) Ad26 vaccine, recombinant Rishi MARSHALL [facility] 02-08-2021 SARS-CoV-2 (COVID-19 ) mRNA BNT-162b2 vax Rishi MARSHALL [facility] 01-28-2021 SARS-CoV-2 (COVID-19 ) Ad26 vaccine, recombinant Rishi MARSHALL [facility] 01-20-2021 COVID-19, Pfizer, 30mcg/0.3ml [facility] 05-02-2018 influenza virus vaccine, unspecified formulation [facility] [place] 01-27-2016 Influenza Vaccine, unspecified formulation [facility] [place] 01-27-2016 influenza virus vaccine, unspecified formulation Rishi MARSHALL [facility] 01-27-2016 influenza, seasonal, injectable, preservative free Matthew Lemus DO Work Phone: [facility] 12-29-2015 hepatitis B vaccine, adult dosage Rishi MARSHALL [facility] 12-17-2015 hepatitis B vaccine, adult dosage Matthew Lemus DO Work Phone: [facility] 12-17-2015 hepatitis B vaccine, unspecified formulation [facility] [place] 11-26-2015 hepatitis B vaccine, adult dosage Rishi MARSHALL [facility] 11-11-2015 diphtheria, tetanus toxoids and acellular pertussis vaccine [facility] 11-11-2015 tetanus toxoid, reduced diphtheria toxoid, and acellular pertussis vaccine, adsorbed Rishi MARSHALL [facility] 01-08-2014 tetanus toxoid, reduced diphtheria toxoid, and acellular pertussis vaccine, adsorbed Rishi MARSHALL [facility] 01-08-2014 varicella virus vaccine Rishi MARSHALL [facility] 10-17-2002 diphtheria, tetanus toxoids and acellular pertussis vaccine, unspecified formulation Matthew Lemus DO Work Phone: [facility] 10-17-2002 DTaP, unspecified formulation Rishi MARSHALL [facility] 10-17-2002 measles, mumps and rubella virus vaccine [facility] [place] 10-17-2002 poliovirus vaccine, inactivated [facility] [place] 10-17-2002 poliovirus vaccine, unspecified formulation Matthew Lemus DO Work Phone: [facility] 10-17-2002 tetanus toxoid, reduced diphtheria toxoid, and acellular pertussis vaccine, adsorbed Matthew Lemus DO Work Phone: [facility] 05-17-1998 haemophilus influenz ae type b vaccine, conjugate unspecified formulation Matthew Lemus DO Work Phone: [facility] 05-17-1998 Hib, unspecified [facility] [place] 05-17-1998 poliovirus vaccine, inactivated [facility] [place] 03-27-1998 diphtheria, tetanus toxoids and acellular pertussis vaccine [facility] [place] 03-27-1998 diphtheria, tetanus toxoids and acellular pertussis vaccine, unspecified formulation Matthew Lemus DO Work Phone: [facility] 03-27-1998 DTaP, unspecified formulation Rishi MARSHALL [facility] 03-27-1998 haemophilus influenz ae type b vaccine, conjugate unspecified formulation Matthew Lemus DO Work Phone: [facility] 03-27-1998 haemophilus influenz ae type b vaccine, HbOC conjugate Matthew Lemus DO Work Phone: [facility] 03-27-1998 Hib, unspecified [facility] [place] 03-27-1998 measles, mumps and rubella virus vaccine [facility] [place] 03-27-1998 tetanus toxoid, reduced diphtheria toxoid, and acellular pertussis vaccine, adsorbed Matthew Lemus DO Work Phone: [facility] 1997 diphtheria, tetanus toxoids and acellular pertussis vaccine [facility] [place] 1997 diphtheria, tetanus toxoids and acellular pertussis vaccine, unspecified formulation Matthew Lemus DO Work Phone: [facility] 1997 DTaP, unspecified formulation Rishi MARSHALL [facility] 1997 haemophilus influenz ae type b conjugate and Hepatitis B vaccine Matthew Lemus DO Work Phone: [facility] 1997 haemophilus influenz ae type b vaccine, conjugate unspecified formulation Matthew Lemus DO Work Phone: [facility] 1997 hepatitis B vaccine, adult dosage Matthew Lemus Work Phone: [facility] Work Phone: 1997 hepatitis B vaccine, unspecified formulation [place], [place] 1997 Hib, unspecified [place], [place] 1997 poliovirus vaccine, inactivated [place], [place] 1997 tetanus toxoid, reduced diphtheria toxoid, and acellular pertussis vaccine, adsorbed Matthew Lemus DO Work Phone: [facility] 1997 trivalent poliovirus vaccine, live, oral Matthew Lemus DO Work Phone: [facility] 1997 diphtheria, tetanus toxoids and acellular pertussis vaccine [place], [place] 1997 diphtheria, tetanus toxoids and acellular pertussis vaccine, unspecified formulation Matthew Lemus DO Work Phone: [facility] 1997 DTaP, unspecified formulation Rishi ROLANDO [facility] 1997 haemophilus influenz ae type b vaccine, HbOC conjugate Matthew Lemus DO Work Phone: [facility] 1997 tetanus toxoid, reduced diphtheria toxoid, and acellular pertussis vaccine, adsorbed Matthew Miltons DO Work Phone: [facility] 1997 trivalent poliovirus vaccine, live, oral Matthew Miltons DO Work Phone: [facility] 1997 diphtheria, tetanus toxoids and acellular pertussis vaccine [facility] [place] [facility] diphtheria, tetanus toxoids and acellular pertussis vaccine, unspecified formulation Matthew Lemus DO Work Phone: [facility] 1997 DTaP, unspecified formulation Rishimaricel MARSHALL [facility] 1997 haemophilus influenz ae type b vaccine, conjugate unspecified formulation Matthew Lemus DO Work Phone: [facility] 1997 Hib, unspecified [facility] [place] [facility] Hib, unspecified formulation Rishi MARSHALL [facility] 1997 poliovirus vaccine, inactivated [facility], [place] 1997 tetanus toxoid, reduced diphtheria toxoid, and acellular pertussis vaccine, adsorbed Matthew Lemus DO Work Phone: [facility] 1997 trivalent poliovirus vaccine, live, oral Matthew Lemus DO Work Phone: [facility] 1997 hepatitis B vaccine, adult dosage Matthew Lemus Work Phone: [facility] Work Phone: 1997 hepatitis B vaccine, pediatric or pediatric/adolescent dosage Rishi MARSHALL [facility] 1997 hepatitis B vaccine, unspecified formulation [facility], [place] 1997 hepatitis B vaccine, adult dosage Matthew Lemus Work Phone: [facility] Work Phone: 1997 hepatitis B vaccine, pediatric or pediatric/adolescent dosage Rishi MARSHALL [facility] [place] 1997 hepatitis B vaccine, unspecified formulation Lisseth Johnson [place], [place] Payers Date Payer Category Payer Worker's Compensation [id number] Unknown 2023 Unknown [id number] 2022 Medicaid [id number]. [id number]. [id number] 2015 Unknown BCBS BCBS - [place] P PO xxxxxxxxxxxx 2015-Present [address] [place] [address] xxxxxxxxxxxx [id number]. 7.3.196758.315 1997 Unknown [id number] 2.16.840.1.118021.3.579.2. 177 1997 Unknown [id number] 2.16.840.1.997469.3.579.2. 177 1997 Unknown [id number] 2.16.840.1.347061.3.579.2. 175 1997 Unknown [id number] 2.16.840.1.006987.3.579.2. 593 1997 Unknown [id number] 2.16.840.1.531735.3.579.2. 593 1997 Unknown [id number] 2.16.840.1.891717.3.579.2. 593 1997 Unknown [id number] 2.16.840.1.985091.3.579.2. 593 1997 Unknown [id number] 2.16.840.1.571025.3.579.2. 593 1997 Unknown [id number] 2.16.840.1.780702.3.579.2. 593 1997 Unknown [id number] 2.16.840.1.100344.3.579.2. 593 1997 Unknown [id number] 2.16.840.1.824235.3.579.2. 593 1997 Unknown [id number] 2.16.840.1.096600.3.579.2. 593 1997 Unknown [id number] 2.16.840.1.114651.3.579.2. 593 1997 Unknown [id number] 2.16.840.1.268322.3.579.2. 593 1997 Unknown [id number] 2.16.840.1.466658.3.579.2. 593 1997 Unknown [id number] 2.16.840.1.959330.3.579.2. 593 1997 Unknown [id number] 2.16.840.1.820953.3.579.2. 593 1997 Unknown [id number] 2.16.840.1.525964.3.579.2. 593 1997 Unknown [id number] 2.16.840.1.029379.3.579.2. 593 1997 Unknown [id number] 2.16.840.1.973375.3.579.2. 593 1997 Unknown [id number] 2.16.840.1.054140.3.579.2. 593 1997 Unknown [id number] 2.16.840.1.107935.3.579.2. 593 1997 Unknown [id number] 2.16.840.1.696822.3.579.2. 727 1997 Unknown [id number] 2.16.840.1.056313.3.579.2. 727 1997 Unknown [id number] 2.16.840.1.205598.3.579.2. 727 1997 Unknown [id number] 2.16.840.1.510339.3.579.2. 727 1997 Unknown [id number] 2.16.840.1.941455.3.579.2. 1286 1997 Unknown [id number] 2.16.840.1.580268.3.579.2. 173 1997 Unknown [id number] 2.16.840.1.956233.3.579.2. 173 1997 Unknown [id number] 2.16.840.1.439024.3.579.2. 173 1997 Unknown [id number] 2.16.840.1.509342.3.579.2. 173 1997 Unknown [id number] 2.16.840.1.428277.3.579.2. 173 1997 Unknown [id number] 2.16.840.1.828427.3.579.2. 173 1997 Unknown [id number] 2.16.840.1.251514.3.579.2. 1259 1997 Unknown [id number] 2.16.840.1.588780.3.579.2. 1259 1997 Unknown [id number] 2.16.840.1.370694.3.579.2. 1259 1997 Unknown [id number] 2.16.840.1.145309.3.579.2. 1259 1997 Unknown [id number] 2.16.840.1.290455.3.579.2. 1259 1997 Unknown [id number] 2.16.840.1.854650.3.579.2. 1259 1997 Unknown [id number] 2.16.840.1.701711.3.579.2. 1259 1997 Unknown [id number] 2.16.840.1.491324.3.579.2. 1259 1997 Unknown [id number] 2.16.840.1.817123.3.579.2. 1286 1997 Unknown [id number] 2.16.840.1.558278.3.579.2. 1286 1997 Unknown [id number] 2.16.840.1.158482.3.579.2. 1286 1997 Unknown [id number] 2.16.840.1.826841.3.579.2. 1285 1997 Unknown [id number] 2.16.840.1.513262.3.579.2. 1286 1997 Unknown [id number] 2.16.840.1.297877.3.579.2. 1286 1997 Unknown [id number] 2.16.840.1.299131.3.579.2. 1286 1997 Unknown [id number] 2.16.840.1.147666.3.579.2. 1286 1997 Unknown [id number] 2.16.840.1.912033.3.579.2. 1286 1997 Unknown [id number] 2.16.840.1.789881.3.579.2. 1286 1959 Self-pay [id number] 1959 Unknown [id number] 1959 Unknown [id number] 2.16.840.1.394005.3.441 1959 Unknown [id number] Unknown [id number] 2.16.840.1.736082.3.579.2. 531 Unknown [id number] 2.16840.1.769423.3.579.2. 531 Unknown [id number] 2.16.840.1.016369.3.579.2. 531 Unknown [id number] 2.16.840.1.715049.3.579.2. 531 Unknown [id number] 2.16.840.1.119497.3.579.2. 531 Social History Date Type Detail Facility Start: 02-06-2019 End: 05-19-2023 Tobacco smoking status NHIS Never smoker [place] Start: 02-06-2019 End: 04-26-2022 Alcohol intake No [place] Start: 1995 Sex Assigned At Not on file [place] Start: 07-31-2019 End: 10-05-2019 Alcohol intake Current non-drinker of alcohol (finding) [place] Exposure to SARS-CoV -2 (event) Unable to assess [place] Start: 03-03-2020 End: 11-10-2021 Tobacco use and exposure Never used [place] Start: 03-03-2020 End: 07-07-2023 Alcohol intake Current drinker of alcohol (finding) [place] Start: 03-03-2020 Alcohol Comment occasional [place] Start: 10-01-2021 End: 06-30-2022 Exposure to SARS-CoV-2 (event) Not sure [place] Tobacco smoking status Never [facility] Start: 04-03-2021 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 History of tobacco use Current smoker [facility] History of tobacco use Tobacco U se Types Packs/Day Years Used Date Smoking Tobacco: Former Vaping/E-cigarettes Smokeless Tobacco: Never [facility] Start: 04-26-2022 End: 07-07-[address] of [address] [facility] Do you belong to any clubs or organizations such as nondenominational groups, unions, [employer] or athletic groups, or school groups? No [facility] Are you now , , , , never or living with a partner? Living with partner [facility] How often to you hav e a drink containing alcohol? Never [facility] How hard is it for y ou to pay for the very basics like food, housing, medical care, and heating Not very hard [facility] Do you feel stress - tense, restless, nervous, or anxious, or unable to sleep at night because your mind is troubled all the time - these days [OSQ] Rather much [facility] Start: 04-26-2022 Education [address] [facility] Start: 06-07-2018 Alcohol Comment occasionally [facility] Goals Date Patient Goal Desired Activity /State Functional Status Date Assessment Result Facility 05-10-2023 Functional Status N/A [facility] 02-06-2023 Functional status Patient at Baseline [facility] Work Phone: Mental Status Date Assessment Result Facility 02-06-2023 Cognitive function Cognitive Sta tus Patient at Baseline [facility] Work Phone: Clinical Notes 09-04-2021 to 07-07-2023 Matthew Lemus, DO - 07/07/2023 10:30 AM EST Note Date & Type Note Facility 07-07-2023 History of Present illness Narrative IM PROGRESS NOTE Patient - Lulú Gaitan Age - 28 y.o. - 1995 ASSESSMENT & PLAN 1. Bipolar 1 disorder ([facility]) -overall stable -undergoing medical regimen change. Will [...] disorder and anxiety and was admitted to [facility] for evaluation and adjustment of her medications. [...] have CT scan and upper GI at [facility]. Both were termed normal except for changes related to her recent kidney stone and bladder manipulation. A review of systems was negative except for the following: General: sleep disturbance Psychiatric: anxiety, mood swings, and now seeing a new mental health provider (Nelly Pederson) out of [place]. Has recently had wholesale changes to her [...] Testing No results found. Matthew Lemus DO., [facility] Office: [phone] documented in this encounter [facility] 05-19-2023 History and physical note Note Date/Time May 19, 2023 1:38pm [facility] [address] [place] [address] Gastroenterology H&P Signed Patient: Lulú Gaitan MR#: [id number] : 1995 Acct:[id number] Age/Sex: 28 / F Adm Date: 3 Loc: Room: Type: [facility] Attending Dr: Fany Ceballos MD [...] Ceballos M.D. Documented By: Fany Ceballos MD 05/19/23 1338 Signed By: <Electronically signed by Fany Ceballos MD> 05/19/231337 [facility] Work Phone: 1(187) 219-229512-21-2023 [facility] note* Encounter Date Diagnosis Assessment Notes Treatment Notes Treatment Clinical Notes Apr, Abnormal abdominal C T scan (ICD-10 - R93.5) Apr, Pyelonephritis of left kidney (ICD-10 - N12) [facility] Other 12-12-2023 Hospital Discharge instructions Patient Education [...] Follow these instructions at home: Medicines Take xgaj-hun-vadfezh and prescription medicines only as told by [...] or the blood stops without treatment. Take euov-hxa-ybyssgq and prescription medicines only as told by your health care provider. Drink enough fluid to keep your urine pale yellow. This information is not intended to replace advice given to you by your health care provider. Make sure you discuss any questions you have with your health care provider. Document Revised: 01/14/2021 Document Reviewed: 01/14/2021 [employer] Patient Education 2022 [employer]. Follow Up Care 05/06/2023 07:59:50 With:ROLANDO DEVLIN, Rishi Ghosh, URL Address: [facility] [address] , [place] [address]- When:Within 4 Month(s) Comments:w/ELYSE [facility] 11-29-2023 Evaluation note* Encounter Date Diagnosis Assessment Notes Treatment Notes Treatment Clinical Notes Mar, Irritable bowel syndrome with constipation (ICD-10 - K58.1) Mar, Delayed gastric emptying (ICD-10 - K30) Mar, Vomiting (ICD-10 - R11.10) [facility] Other 09-15-2023 Evaluation note* Encounter Date Diagnosis Assessment Notes Treatment Notes Treatment Clinical Notes Jan, Sore throat (ICD-10 - J02.9) Jan,3 Acute sinusitis, recurrence not specified, unspecified location [...] no improvement in 2 to 3 days [facility] Other 09-10-2023 Hospital Discharge instructions Additional Instructions Important Contact Information You can call [facility] at [phone] any time day or night if you have emergent questions concerning your inpatient stay and to obtain information for obtaining testing results. If at any time you are feeling an increase in your psychiatric symptoms, call your physician or behavioral healthcare provider. If any time you have thoughts of harming yourself or others contact one of the following: Call 98-8 (available 20/12) Crisis Text Line (available 20/12) text 4HOPE to [phone] [facility] Hope Line (available 8 a.m. Midnight) call [phone] ([phone]) [facility] Work Phone: 1(192) 891-116809-09-2023 Progress note Author Krari Kamara [facility] February 05, 2023 12:00pm Note Date/Time February 05, 2023 12:00pm [facility] [address] [place] [address] Psychiatry Progress Note Signed Patient: Lulú Gaitan MR#: [id number] : 1995 Acct:[id number] Age/Sex: 27 / F Adm Date: 3 Loc: Room: [address] [place] [address] Type : ADM IN Attending Dr: Karri [...] signed by Karri Kamara MD> 02/05/23 1200 [facility] Work Phone: 1(618) 226-828109-08-2023 Progress note Author Karri Kamara [facility] February 04, 2023 1:43pm Note Date/Time February 04, 2023 1:44pm [facility] [address] [place] [address] Psychiatry Progress Note Signed Patient: Lulú Gaitan MR#: [id number] : 1995 Acct:[id number] Age/Sex: 27 / F Adm Date: 3 Loc: Room: [address] [place] [address] Type : ADM IN Attending Dr: Karri [...] explained Documented By: Karri Kamara MD 02/04/23 7574 Signed By: <Electronically signed by Karri Kamara MD> 02/04/23 8104 [facility] Work Phone: 1(911) 735-399609-07-2023 Miscellaneous Notes* Telephone Encounter - Viviana David [...] list full name of hospital or facility)? [facility] If the patient had a gastric [...] G/J Tube?No Preferred phone number for contact: [phone] [facility] History and physical note Author Karri Kamara [facility] February 03, 2023 11:58am Note Date/Time February 03, 2023 11:58am [facility] [address] [place] [address] Psychiatry H&P Signed Patient: Lulú Gaitan MR#: [id number] : 1995 Acct:[id number] Age/Sex: 27 / F Adm Date: 3 Loc: Room: [address] [place] [address] Type: ADM IN Attending Dr: Karri Kamara [...] is now 5 months old. She states thatsaúle delivered her daughter 11 weeks premature and [...] States she recently saw her psychiatrist at [facility] and was restarted on Latuda. 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 Relationships: Patient states [...] like current medical regimen is working [facility] Medical History (Updated 02/03/23 @ [...] Cloudy A Urine pH 6.0 Ur Specific Barnes 1.027 Urine Protein 30 H Urine Glucose [...] Color Urine Appearance Urine pH Ur Specific Barnes Urine Protein Urine Glucose (UA) Urine Ketones [...] explained Documented By: Karri Kamara MD 02/03/23 2731 Signed By: <Electronically signed by Karri Kamara MD> 02/03/23 1151 [facility] Work Phone: 1(686) 982-666002-02-2023 History of Present illness Narrative* Jenna Elliott [...] 11:40 PM EST Nurse at bedside from 7724-5107. Nurse pal[pates pt's abdomen when pt feeling [...] at this time. documented in [facility] [employer] Work Phone: 1(881) 578-869602-02-2023 Hospital Discharge instructions* Discharge Instructions* Jenna Elliott RN - 07/01/2022 12:27 AM EST OUTPATIENT DISCHARGE Dr. Miguel Aguilera [facility]. Katelynn Leslie [facility] [address] [facility] [address] [place] or Sam Chyna Prakash [facility] [place] [place] [address] [place] [address] ACTIVITY LIMITATIONS: ( x )Up [...] AND DELIVERY . documented in this encounterBON [employer] Phone: 1(980) 590-347509-14-2022 History and physical note Author Tae Natarajan [facility] February 10, 2022 5:06pm Note Date/Time February 10, 2022 5:06pm [facility] [address] [place] [address] Vascular Surgery H&P Signed Patient: Lulú Gaitan MR#: [id number] : 1995 Acct:[id number] Age/Sex: 26 / F Adm Date: 2 Loc: Room: Type: [facility] Attending Dr: Tae Natarajan MD Copies to: MD Matthew Hernandez DO~ Date of Service: 02/10/2022 HPI History of Present Illness Chief complaint: Hematuria HPI: Ms. Gaitan is a 26 year old female being evaluated by Dr. Marshall for recurrent gross hematuria. Other evaluation including CT scan has been negative and Dr. Marshall requested diagnostic arteriogram and venogram. [facility] Vaccinated for COVID-19?: Yes Medical History (Updated [...] mg PO DAILY 02/10/22 [History Confirmed 02/10/22] enfphbzbvg-xvjljooxwnfht-jpveqgob 50 mg-300 mg-40 mg capsule (Fioricet) 1 [...] signed by MD Tae Natarajan> 02/10/22 1706 [facility] Work Phone: 1(577) 702-607008-29-2022 Evaluation note* Encounter Date Diagnosis Assessment Notes [...] ahead with arteriogram and venogram as requested. [facility] Other 05-15-2022 Hospital Discharge instructions* Instructions* Christine Vazquez PA-C - 10/11/2021 Take ibuprofen mfip-gxn-krdmgiv 600 mg 3 times daily as needed for pain. Follow- up with your primary care provider and discuss additional testing if symptoms not improved. Return to the emergency room for any worsening symptoms. * Attachments The following attachments cannot be sent through Care Everywhere. * Pelvic Pain (Icelandic) documented in this encounterReg[facility] EastDoppelgames Work Phone: 1(119) 204-439905-03-2022 Hospital Discharge instructions Patient Education 09/29/2021 13:37:25 [...] Follow these instructions at home: Medicines Take wgkl-emi-sptsccx and prescription medicines only as told by [...] or the blood stops without treatment. Take tfoo-jia-tihbxkx and prescription medicines only as told by your health care provider. Drink enough fluid to keep your urine clear or pale yellow. This information is not intended to replace advice given to you by your health care provider. Make sure you discuss any questions you have with your health care provider. Document Released: 05/16/2006 Document Revised: 10/10/2019 Document Reviewed: 06/18/2017 [employer] Patient Education 2019 [employer]. Follow Up Care 09/22/2021 14:13:42 With:ROLANDO DEVLIN, Rishi Ghosh, URL Address: [facility] [address] , [place] [address]- Business (1) When: Unknown [facility] Amira 04-08-2022 Hospital Discharge instructions Patient [...] including vitamins, herbs, eye drops, creams, and dvgl-jbt-sgcikcx medicines. Any problems you or family members [...] provider tells you to take them. ?Taking kacu-izq-kpbxpdl medicines, vitamins, herbs, and supplements. Follow instructions [...] Follow these instructions at home: Medicines Take pwip-suu-pghelli and prescription medicines only as told by [...] Document Reviewed: 05/08/2019 Elsevier Patient Education 2020 [employer] Follow Up Care 08/07/2021 15:47:45 With:ROLANDO DEVLIN, Rishi Augie, URL Address: [address] [place] [address]- When: Unknown Comments:will schedule Cysto [facility] Dina discharge summary Author Karri Kamara [facility] February 06, 2023 11:04am Note Date/Time February 06, 2023 11:04am [facility] [address] [place] [address] Discharge Summary Signed Patient: Lulú Gaitan MR#: [id number] : 1995 Acct:[id number] Age/Sex: 27 / F Adm Date: 3 Loc: Room: [address] [place] [address]: Karri Kamara MD Copies to: [...] States she recently saw her psychiatrist at [facility] and was restarted on Latuda. 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 Midnight) call [phone] ([phone]) Stand Alone Forms: Work/School Release Form Prescriptions: [...] Follow Up: [facility] [Other] (fax:[phone]) [facility] [Outside] Matthew Lemus DO [Primary Care Provider] - (Please contact for any medical needs or concerns) Documented By: Karri Kamara MD 02/06/23 1103 Signed By: <Electronically signed by Karri Kamara MD> 02/06/23 110 [facility] Work Phone: Evaluation + Plan note No data available for this section [facility] evaluation + Plan note Future Appointments Appointment Date:02/05/2022 09:45:00 AM Scheduled Provider:Rishi MARSHALL MD Location:[facility] Appointment Type:URO Office Visit [facility] Evaluation + Plan note Future Appointments Appointment Date:09/27/2023 10:15:00 AM Scheduled Provider:Rishi MARSHALL MD Location:[facility] Appointment Type:URO Office Visit [facility] Evaluation note* Diagnosis Lower abdominal pain- Primary Abdominal pain, other specified site documented in this encounter [employer] Phone: evalpqasfx note* Diagnosis Onset Date Resolution Status Hematuria acute [facility] Work Phone: evaluation note* Diagnosis Hyperemesis- Primary Persistent vomiting Pelvic cramping Unspecified symptom associated with female genital organs documented in this encounter MARTHA RITCHIE [employer] Phone: evaluation note* Diagnosis Onset Date Resolution Status Bipolar 1 disorder acute Depression acute Major depressive disorder, recurrent acute Suicidal ideation acute [facility] Work Phone: Evaluation noteNo assessment information available [facility] Work Phone: Evaluation note* Diagnosis Bipolar 1 disorder ([facility])- Primary Oropharyngeal dysphagia Dysphagia, oropharyngeal phase Generalized anxiety disorder with panic attacks [facility] Narrative - Reported* Type Description Date Medical History migraine headache Medical History endometriosis Medical History PCOS Medical History borderline personality disorder Medical History bipolar Medical History anxiety Medical History chronic depression Surgical History laparoscopy x3 female Surgical History umbilical hernia repair Hospitalization History 1 [facility] 2020 Hospitalization History as a child for stomach p ain [facility] Other Hisuwsj general Narrative - Reported* Type Description Date Medical History migraine headache Medical History endometriosis Medical History PCOS Medical History borderline personality disorder Medical History bipolar Medical History anxiety Medical History chronic depression Surgical History laparoscopy x3 female Surgical History umbilical hernia repair Hospitalization History 1 [facility] 2020 Hospitalization History as a child for stomach p ain Hospitalization History LATUDA REACTION 1 [facility] 02/02/2023 [facility] Other Hospital Discharge instructions Additional Instructions Hold Metformin for 2 days. No heavy lifting of anything over 5 pounds. No pushing or pulling. No vigorous activity. Remove dressing in 24 hours.[facility] Work Phone: Hospital Discharge instructions Additional [...] problems. -Follow up with PCP. -Office number [phone]. [facility] Work Phone: Hospital Discharge instructions No data available for this section [facility] InstructionsNot on filedocumented in this encounter [facility] note No data available for this section [facility] Assessments Diagnosis Gross hematuria Urgency of urination Diagnosis Gross hematuria Urgency of urination Diagnosis Gross hematuria Diagnosis Acute frontal sinusitis, recurrence not specified Diagnosis Viral URI with cough Acute upper respiratory infections of unspecified site Diagnosis Intractable nausea and vomiting Persistent vomiting Diagnosis Dysuria Gross hematuria Advance Directives No Advanced Directives Records FoundDocuments on File Type Date Recorded 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 Go to [email or web address] and sign in to your [employer] account. Enter J454 in the Search Health Information box to learn more about Upper GI Endoscopy: What to Expect at Home. . 9579-9113 [employer]. Care instructions adapted under license by [employer]. This care instruction is for use with your licensed healthcare professional. If you have questions about a medical condition or this instruction, always ask your healthcare professional. [employer] disclaims any warranty or liability for your use of this information. Content Version: 9.9.309184; Last Revised: July 19, 2012 Upper GI [...] Where can you learn more? Go to [email or web address] and sign in to your [employer] account. Enter J454 in the Search Health Information box to learn more about Upper GI Endoscopy: What to Expect at Home. . 7765-9527 [employer]ap[employer]id. Care instructions adapted under license by [facility] Snapsheet. This care instruction is for use with your licensed healthcare professional. If you have questions about a medical condition or this instruction, always ask your healthcare professional. [employer] disclaims any warranty or liability for your use of this information. Content Version: 9.9.493127; Last Revised: July 19, 2012 Upper GI [...] Where can you learn more? Go to [email or web address] and sign in to your [employer] account. Enter J454 in the Search Health Information box to learn more about Upper GI Endoscopy: What to Expect at Home. . 3872-6315 [employer]. Care instructions adapted under license by [employer]. This care instruction is for use with your licensed healthcare professional. If you have questions about a medical condition or this instruction, always ask your healthcare professional. [employer] disclaims any warranty or liability for your use of this information. Content Version: 9.9.362660; Last Revised: July 19, 2012 Upper GI [...] Where can you learn more? Go to [email or web address] and sign in to your [employer] account. Enter J454 in the Search Health Information box to learn more about Upper GI Endoscopy: What to Expect at Home. . 5483-6166 [employer]. Care instructions adapted under license by [employer]. This care instruction is for use with your licensed healthcare professional. If you have questions about a medical condition or this instruction, always ask your healthcare professional. [employer] disclaims any warranty or liability for your use of this information. Content Version: 9.9.439937; Last Revised: July 19, 2012 Upper GI [...] Where can you learn more? Go to [email or web address] and sign in to your [employer] account. Enter J454 in the Search Health Information box to learn more about Upper GI Endoscopy: What to Expect at Home. . 0167-4923 [employer]id. Care instructions adapted under license by [employer]. This care instruction is for use with your licensed healthcare professional. If you have questions about a medical condition or this instruction, always ask your healthcare professional. [employer] disclaims any warranty or liability for your use of this information. Content Version: 9.9.485305; Last Revised: July 19, 2012 Upper GI [...] Where can you learn more? Go to [email or web address] and sign in to your [employer] account. Enter J454 in the Search Health Information box to learn more about Upper GI Endoscopy: What to Expect at Home. . [employer]. Care instructions adapted under license by [employer]. This care instruction is for use with your licensed healthcare professional. If you have questions about a medical condition or this instruction, always ask your healthcare professional. [employer] disclaims any warranty or liability for your use of this information. Content Version: 9.9.163259; Last Revised: July 19, 2012 Upper GI [...] the day after the test, use an [id number] spray to numb your throat. Follow-up care [...] Where can you learn more? Go to [email or web address] and sign in to your [employer] account. Enter J454 in the Search Health Information box to learn more about Upper GI Endoscopy: What to Expect at Home. If you do not have an account, please click on the Sign Up Now link. Current as of: January 07, 2019Content Version: 12.4 5649-5152 SlapVid. Care instructions adapted under license by [email or web address]. If you have questions about a medical condition or this instruction, always ask your healthcare professional. [employer] disclaims any warranty or liability for your use of this information. documented in this encounter* Attachments The following attachments cannot be sent through Care Everywhere. * URI (Upper Respiratory Infection): Viral (Icelandic) documented in this encounter Summary Purpose Family [...] SCAN W EJECTION FRACTION Toño Blanc MD [address] [place] [address] Chief Complaint and Reason for Visit Chief Complaint Gross Hematuria, Fla nk Pain Reason for Visit Hematuria Chief Complaint Mental eval Reason for Visit Bipolar 1 disorder Depression Major depressive disorder, recurrent Suicidal ideation Chief Complaint K58.1 k30 r11.10 Chief Complaint K58.1 k30 r11.10 Vomiting Chief Complaint CALDWELL Chief Complaint CALDWELL Unknown Chief Complaint CALDWELL Unknown Unknown Additional Source Comments Reason for Visit (unrecogniz ed section and content) Status Reason Specialty Diagnoses / Procedures Re ferred By Contact Referred To Contact Diagnoses Dysphagia DX DYSPHAGIA Procedures FL ESOPHAGOGASTRODUODENOSCOPY TRANSORAL DIAGNOSTIC EGD ESOPHAGOGASTRODUODENOSCOPY Toño Blanc MD [address] [place] [address] [facility] Reason Comments Cough pt states onset last week. PT states she is taking Prednisone and Keflex for a sinus infection Status Reason Specialty Diagnoses / Procedures Referred By Contact Referred To Contact Not Required - [facility] Diagnoses Nausea with vomiting, unspecified Procedures HC NM HEPATOBILIARY IMAGING W PHARM Toño Blanc MD [address] [place] [address] [facility] [address] [place] [id number] Reason Comments Abdominal Cramping onset this am [...] section and content) DATE CREATED AUTHOR 10/15/2019 [facility] DATE CREATED AUTHOR AUTHOR'S ORGANIZ ATION 03/07/2020 [facility] DATE CREATED AUTHOR AUTHOR'S ORGANIZ ATION 07/27/2021 [facility] DATE CREATED AUTHOR AUTHOR'S ORGANIZ ATION 09/24/2022 [facility] DATE CREATED AUTHOR AUTHOR'S ORGANIZ ATION 02/12/2023 [facility] DATE CREATED AUTHOR AUTHOR'S ORGANIZ ATION 11/09/2023 [facility] DATE CREATED AUTHOR AUTHOR'S ORGANIZ ATION 01/12/2024 [facility] DATE CREATED AUTHOR AUTHOR'S ORGANIZ ATION 01/15/2024 [facility] DATE CREATED AUTHOR AUTHOR'S ORGANIZ ATION 01/17/2024 [facility] DATE CREATED AUTHOR AUTHOR'S ORGANIZ ATION 01/25/2024 [facility] DATE CREATED AUTHOR AUTHOR'S ORGANIZ ATION 02/11/2024 [facility] DATE CREATED AUTHOR AUTHOR'S ORGANIZ ATION 02/17/2024 [facility] Scheduled Active and Recently Administ ered Medications [...] Kamara MD Admit Provider, Attending Provider Active Relocation Director Relationship Specialty Start Date End Date Matthew Lemus [place] [phone] PCP - General Internal Medicine 10/11/21 Relocation Director Relationship Specialty Start Date End Date Matthew Lemus [place] [address] PCP - General Internal Medicine 10/11/21 Team Status: Inactive Member Role Status Dates Matthew Lemus DO Primary Care Provider Active Tae Natarajan MD Attending Provider Active Relocation Director Relationship Specialty Start Date End Date Bridgette Lewis MD [address] [place] [address] PCP - General Internal Medicine 06/30/22 Relocation Director Relationship Specialty Start Date End Date Agustin Ramos [address] [place] [id number] PCP - General 01/27/04 Team Status: Inactive Member Role Status Dates Matthew Mariah Primary Care Provider Active Fany Ceballos MD Attending Provider Active Relocation Director Relationship Specialty Start Date End Date Matthew Lemus DO [address] [place] [address] PCP - General Internal Medicine 12/19/22 Team Status: Inactive Member Role Status Dates Matthew Lemus DO Primary Care Provide r, Attending Provider Active Start: December 29, 2023 End: December 29, 2023 Team Status: Inactive Member Role Status Dates Ron Valenzuela DO Attending Provider Active Start : January 16, 2024 End: January 16, 2024 Team Status: Inactive Member Role Status Dates Ron Valenzuela DO Attending Provider Active Start : February 15, 2024 End: February 15, 2024 Goals (unrecognized section and content) Goals may be documented in a n alternate section Source Comments (unrecognize d section and content) In the event this informatio n is protected by the Federal Confidentiality of Alcohol and Drug Abuse Patient Records regulations: The Federal rules restrict any use of the information to criminally investigate or prosecute any alcohol or drug abuse patient.[facility] FOR RECORDS PERTAINING TO PATIENTS WHO [...] BE BASED ON THE PRIMARY CLINICAL RECORDS. [employer] [facility]. provides no warranty or guarantee of the accuracy or completeness of information in this document.
[2024-02-20 20:42] VITALS: BP 133/87; PULSE 84; O2SAT 100
--- NOTE | 2024-02-20 20:48 | ECG_ITS ---
[facility] Test Date: 2024-02-20 Pat Name: LULÚ CAICEDO Department: Room: - Gender: Female Behavioral Technician: : 1995 Requested By: 1030 Order Number: [id number] Reading MD: IBIS CALIX Measurements Intervals Haskins Rate: 88 P: 120 NV: 160 QRS: 96 QRSD: 92 T: 67 QT: 362 QTc: 407 Interpretive Statements 1220 Rapid atrial rhythm 2420 RSR (QR) in lead V1/V2, consistent with right ventricular conduction delay 6220 Possible left atrial enlargement 7102 Moderate right axis deviation 0101 Possible arm leads reversed, check lead requested 9150 abnormal ECG Electronically Signed On 02-21-2024 6:52:00 EDT by IBIS CALIX
--- NOTE | 2024-02-20 20:48 | PC.NURSE ---
Pain to right mid abdomen that radiates across right side. Steri strips in place from laproscopic hysterectomy done 5 days ago, incisions well approx., no redness or drainage at sites. Abdomen soft and tender and bowel sounds present in all quadrants.
--- NOTE | 2024-02-20 20:49 | ED_ITS ---
HPI HPI - General Adult General Chief complaint: Dizziness Stated complaint: POST OP COMP Time Seen by Provider: 02/20/24 20:43 Source: patient Mode of arrival: Wheelchair Limitations: no limitations History of Present Illness HPI narrative: 28-year-old female presents for dizziness. She is postop day #5 from laparoscopic hysterectomy. She has had no bleeding or fever. She has been eric seous and is having upper abdominal pain. She stopped the Percocet 3 days ago because she thought that might be what was causing her symptoms. Appetite has been good and she has been able to eat and drink. She has had no problems with constipation. She has an appointment with her gynecology office tomorrow. Related Data Home Medications ?Medication ?Instructions ?Recorded ?Confirmed promethazine 12.5 mg rectal 12.5 mg IL Q6H PRN nausea and 04/06/23 02/15/24 suppository vomiting buspirone 15 mg tablet 15 mg PO BID 07/15/23 02/15/24 clonazepam 0.5 mg tablet 0.5 mg PO BID 07/15/23 02/15/24 levonorgestrel 21 mcg/24 hr (up to 1 device intrauterine ONCE 07/15/23 01/31/24 8 years) 52 mg intrauterine device (Mirena) omeprazole 20 mg capsule,delayed 20 mg PO QPM 07/15/23 02/15/24 release promethazine 12.5 mg tablet 12.5 mg PO Q6H PRN nausea and 07/15/23 02/15/24 vomiting baclofen 10 mg tablet 10 mg PO Q12H PRN muscle spasm 01/31/24 02/15/24 fexofenadine 180 mg tablet 180 mg PO DAILY 01/31/24 02/15/24 (Soha Allergy) fluoxetine 20 mg capsule 20 mg PO DAILY 01/31/24 02/15/24 lisdexamfetamine 60 mg capsule 60 mg PO DAILY 01/31/24 02/15/24 lumateperone 42 mg capsule 42 mg PO QPM 01/31/24 02/15/24 (Caplyta) meclizine 25 mg chewable tablet 25 mg PO TID PRN dizziness 01/31/24 02/15/24 (Motion Sickness Relief (meclizine)) Previous Rx's ?Medication ?Instructions ?Recorded ibuprofen 800 mg tablet 800 mg PO Q8H PRN pain #20 tabs 11/06/23 ibuprofen 800 mg tablet 800 mg PO Q8H PRN pain 14 days #40 02/15/24 tabs ondansetron 4 mg disintegrating 4 mg PO Q6H PRN nausea and 02/15/24 tablet vomiting 5 days #20 tabs oxycodone-acetaminophen 5 mg-325 1 tab PO Q6H PRN pain 7 days #28 02/15/24 mg tablet (Percocet) tabs Allergies Allergy/AdvReac Type Severity Reaction Status Date / Time azithromycin Allergy Mild itching Verified 02/20/24 20:30 erythromycin base Allergy Mild Hives Verified 02/20/24 20:30 lamotrigine [From Lamictal] Allergy Mild facial Verified 02/20/24 20:30 swelling bee venom protein (honey bee) Allergy swelling Verified 02/20/24 20:30 hydrocodone Allergy Hallucinati Verified 02/20/24 20:30 ng lurasidone [From Latuda] Allergy suicidal Verified 02/20/24 20:30 ideation Opioid HPI Opioid Management Most Recent Opioid Data: Last Pain Scale 5 02/16/24 07:00 Last Pain Assessment 02/16/24 08:00 Last ED Pain Assessment 02/20/24 22:08 Last ORT Total Score 2 02/15/24 15:46 Last ORT Risk Category Low Risk 02/15/24 15:46 Review of Systems ROS Narrative A ten point review of systems is negative except as noted above. [facility] Medical History (Updated 02/20/24 @ 22:13 by Ridge Pathak MD) ADD (attention deficit disorder) ?F98.8 - Other specified behavioral and emotional disorders with onset usually occurring in childhood and adolescence (ICD-10) Dysmenorrhea ?N94.6 - Dysmenorrhea, unspecified (ICD-10) Dyspareunia Menorrhagia ?N92.0 - Excessive and frequent menstruation with regular cycle (ICD-10) Panic disorder ?F41.0 - Panic disorder [episodic paroxysmal anxiety] (ICD-10) Pain of ovary ?N94.89 - Other specified conditions associated with female genital organs and menstrual cycle (ICD-10) Pelvic pain ?R10.2 - Pelvic and perineal pain (ICD-10) Insomnia ?G47.00 - Insomnia, unspecified (ICD-10) PTSD (post-traumatic stress disorder) ?F43.10 - Post-traumatic stress disorder, unspecified (ICD-10) Panic attacks ?F41.0 - Panic disorder [episodic paroxysmal anxiety] (ICD-10) Bipolar disorder ?F31.9 - Bipolar disorder, unspecified (ICD-10) COVID-19 ?U07.1 - COVID-19 (ICD-10) Vomiting ?R11.10 - Vomiting, unspecified (ICD-10) Nausea ?R11.0 - Nausea (ICD-10) Kidney stones ?N20.0 - Calculus of kidney (ICD-10) GERD (gastroesophageal reflux disease) ?K21.9 - Gastro-esophageal reflux disease without esophagitis (ICD-10) Palpitations ?R00.2 - Palpitations (ICD-10) PONV (postoperative nausea and vomiting) ?R11.2 - Nausea with vomiting, unspecified (ICD-10) ?Z98.890 - Other specified postprocedural states (ICD-10) Migraines ?G43.909 - Migraine, unspecified, not intractable, without status migrainosus (ICD-10) Cystitis ?N30.90 - Cystitis, unspecified without hematuria (ICD-10) Endometriosis ?N80.9 - Endometriosis, unspecified (ICD-10) Depression ?F32.A - Depression, unspecified (ICD-10) Asthma ?J45.909 - Unspecified asthma, uncomplicated (ICD-10) Anxiety ?F41.9 - Anxiety disorder, unspecified (ICD-10) Surgical History (Updated 01/31/24 @ 10:24 by Hannah Lucero NP) H/O ovarian cystectomy (07/28/20) ?Z98.890 - Other specified postprocedural states (ICD-10) ?Z87.42 - Personal history of other diseases of the female genital tract (ICD-10) History of laparoscopy ?Z98.890 - Other specified postprocedural states (ICD-10) S/P cystoscopy with ureteral stent placement (04/14/23) ?Z96.0 - Presence of urogenital implants (ICD-10) History of umbilical hernia repair ?Z98.890 - Other specified postprocedural states (ICD-10) ?Z87.19 - Personal history of other diseases of the digestive system (ICD-10) History of cystoscopy ?Z98.890 - Other specified postprocedural states (ICD-10) History of ovarian cystectomy ?Z98.890 - Other specified postprocedural states (ICD-10) ?Z87.42 - Personal history of other diseases of the female genital tract (ICD-10) History of endometrial ablation ?Z98.890 - Other specified postprocedural states (ICD-10) History of esophagogastroduodenoscopy (EGD) ?Z98.890 - Other specified postprocedural states (ICD-10) Family History (Updated 07/15/23 @ 09:19 by Hannah Lucero NP) Father Anxiety Depression Other Family history of aneurysm Family history of hypertension Family history of skin cancer Family history of throat cancer TIA (transient ischemic attack) Social History (Updated 02/15/24 @ 06:44 by Kayla Flor RN) Within the past year, how often did you have a drink containing alcohol: monthly or less Smoking status: Never smoker Nicotine containing products detail: vaped for short period stopped last year Second hand tobacco smoke exposure: Yes Non-prescribed substance use: denies use 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 General: The patient appears uncomfortable and in no apparent distress. Skin: Warm, dry, no pallor noted. There is no rash noted. Head: Normocephalic, atraumatic Eye: Normal conjunctiva, no drainage Ears, Nose, Mouth, and Throat: oral mucosa is moist. Nares patent. Cardiovascular: Regular Rate and Rhythm Respiratory: Patient is in no distress, no accessory muscle use, lungs are clear to auscultation, no wheezing, rales or rhonchi Back: non-tender GI: Surgical incisions are healing well. No erythema or dehiscence or drainage. Mild abdominal tenderness. No distention Musculoskeletal: The patient has no evidence of calf tenderness, no pitting edema, symmetrical pulses noted bilaterally Neurological: A&O, normal speech Psychiatric: Cooperative Constitutional Vital Signs, click to edit/add: Last Vital Signs Temp 98.2 F 02/20/24 20:30 Pulse 82 02/20/24 22:08 Resp 18 02/20/24 22:08 BP 130/72 02/20/24 22:08 Pulse Ox 100 02/20/24 22:08 O2 Del Method Room Air 02/20/24 22:08 Course Vital Signs Vital signs: Vital Signs Temperature 98.2 F 02/20/24 20:30 Pulse Rate 84 02/20/24 20:30 Respiratory Rate 18 02/20/24 20:30 Blood Pressure 141/88 02/20/24 20:30 Pulse Oximetry 100 02/20/24 20:30 Oxygen Delivery Method Room Air 02/20/24 20:30 Temperature 98.2 F 02/20/24 20:30 Pulse Rate 82 02/20/24 22:08 Respiratory Rate 18 02/20/24 22:08 Blood Pressure 130/72 02/20/24 22:08 Pulse Oximetry 100 02/20/24 22:08 Oxygen Delivery Method Room Air 02/20/24 22:08 Medical Decision Making MDM Narrative Medical decision making narrative: Her workup is negative. Hemoglobin is normal and no evidence of dehydration. Findings were discussed with the patient and she will be discharged home. She has an appointment with her lead systems analyst office tomorrow and she will keep that appointment. Treatment diagnosis and follow-up were discussed thoroughly. She is feeling improved with the treatment given here tonight. Differential Diagnosis Differential Diagnosis: Dizziness, acute kidney injury, anemia Lab Data Lab results reviewed: Yes I reviewed the patient's lab results Labs: Lab Results 02/20/24 Range/Units 21:05 WBC 8.7 (4.0-11.0) 10^3/uL RBC 4.38 (4.20-5.40) 10^6/uL Hgb 13.3 (12.0-16.0) g/dL Hct 39.3 (36.0-48.0) % MCV 89.7 (81.0-99.0) fL MCH 30.4 (26.7-34.0) pg MCHC 33.8 (29.9-35.2) g/dL RDW 12.0 (11.0-15.0) % Plt Count 282 (150-450) 10^3/uL MPV 9.8 (9.5-13.5) fL Neut % (Auto) 55.8 (43.0-75.0) % Lymph % (Auto) 34.5 (20.5-60.0) % [place] % (Auto) 7.0 (1.7-12.0) % Eos % (Auto) 1.3 (0.9-7.0) % Baso % (Auto) 0.9 (0.2-2.0) % Neut # (Auto) 4.9 (1.4-6.5) 10^3/uL Lymph # (Auto) 3.0 (1.2-3.8) 10^3/uL [place] # (Auto) 0.6 (0.3-0.8) 10^3/uL Eos # (Auto) 0.1 (0.0-0.7) 10^3/uL Baso # (Auto) 0.1 (0.0-0.1) 10^3/uL Abs Immat Gran (auto) 0.04 H (0.00-0.03) 10^3/uL Imm/Tot Granulo (auto) 0.5 (0.0-0.5) % Sodium 138 (136-145) mmol/L Potassium 4.0 (3.5-5.1) mmol/L Chloride 102 (98-107) mmol/L Carbon Dioxide 29.2 (21.0-32.0) mmol/L Anion Gap 10.8 BUN 11.0 (7.0-18.0) mg/dL Creatinine 0.71 (0.55-1.02) mg/dL Est GFR ( Amer) >60 (>=60) Est GFR (Non-Af Amer) >60 (>=60) BUN/Creatinine Ratio 15.5 Glucose 91 (74-106) mg/dL Calcium 8.9 (8.5-10.1) mg/dL ECG Data Attestation: I personally reviewed and interpreted this ECG as follows: (EKG on my interpretation shows sinus rhythm with a rate of 88 and no acute change) Discharge Plan Discharge Chief Complaint: Dizziness Clinical Impression: Dizziness Patient Disposition: Home, Self-Care Time of Disposition Decision: 22:13 Condition: Good Mode of Transportation: Private Vehicle Prescriptions / Home Meds: No Action promethazine 12.5 mg suppository 12.5 mg IL Q6H PRN (Reason: nausea and vomiting) buspirone 15 mg tablet 15 mg PO BID clonazepam 0.5 mg tablet 0.5 mg PO BID omeprazole 20 mg capsule,delayed release(DR/EC) 20 mg PO QPM promethazine 12.5 mg tablet 12.5 mg PO Q6H PRN (Reason: nausea and vomiting) Mirena 21 mcg/24 hours (8 yrs) 52 mg intrauterine device 1 device intrauterine ONCE ibuprofen 800 mg tablet 800 mg PO Q8H PRN (Reason: pain) Qty: 20 0RF lisdexamfetamine 60 mg capsule 60 mg PO DAILY baclofen 10 mg tablet 10 mg PO Q12H PRN (Reason: muscle spasm) fluoxetine 20 mg capsule 20 mg PO DAILY Caplyta 42 mg capsule 42 mg PO QPM meclizine [Motion Sickness Relief(mecliz)] 25 mg tablet,chewable 25 mg PO TID PRN (Reason: dizziness) fexofenadine [Soha Allergy] 180 mg tablet 180 mg PO DAILY ibuprofen 800 mg tablet 800 mg PO Q8H PRN (Reason: pain) 14 Days Qty: 40 0RF oxycodone-acetaminophen [Percocet] 5-325 mg tablet 1 tab PO Q6H PRN (Reason: pain) 7 Days Qty: 28 0RF ondansetron 4 mg tablet,disintegrating 4 mg PO Q6H PRN (Reason: nausea and vomiting) 5 Days Qty: 20 0RF Print Language: Thai Instructions: Dizziness (ED) Additional Instructions: See your lead systems analyst tomorrow at your appointment. Referrals: MATTHEW LEMUS [Primary Care Provider] - 1 week
[2024-02-20 21:31] LABS: Basophils Absolute Auto 0.1 10^3/uL (0.0-0.1); Basophils Percent Auto 0.9 % (0.2-2.0); Eosinophils Absolute Auto 0.1 10^3/uL (0.0-0.7); Eosinophils Percent Auto 1.3 % (0.9-7.0); Hematocrit 39.3 % (36.0-48.0); Hemoglobin 13.3 g/dL (12.0-16.0); Immature Granulocytes Abs Auto 0.04 10^3/uL (0.00-0.03); Immature Granulocytes Pct Auto 0.5 % (0.0-0.5); Lymphocytes Percent Auto 34.5 % (20.5-60.0); Mean Corpuscular HGB Conc 33.8 g/dL (29.9-35.2); Mean Corpuscular Hemoglobin 30.4 pg (26.7-34.0); Mean Corpuscular Volume 89.7 fL (81.0-99.0); Mean Platelet Volume 9.8 fL (9.5-13.5); Monocytes Absolute Auto 0.6 10^3/uL (0.3-0.8); Neutrophils Absolute Auto 4.9 10^3/uL (1.4-6.5); Neutrophils Percent Auto 55.8 % (43.0-75.0); Platelet Count 282 10^3/uL (150-450); Red Blood Count 4.38 10^6/uL (4.20-5.40); White Blood Count 8.7 10^3/uL (4.0-11.0)
[2024-02-20] MEDS: ONDANSETRON PF 4 MG/2 ML VIAL IV (21:33)
[2024-02-20] MEDS: 0.9 % SODIUM CHLORIDE 1,000 ML 1000 ML IV (21:33)
[2024-02-20] MEDS: MORPHINE SULFATE 4 MG/ML VIAL IV ×2 (21:36→22:22)
[2024-02-20 21:41] LABS: Anion Gap 10.8; BUN Creatinine Ratio 15.5; Calcium 8.9 mg/dL (8.5-10.1); Carbon Dioxide 29.2 mmol/L (21.0-32.0); Chloride 102 mmol/L (98-107); Estimated GFR (African America >60 (>=60); Estimated GFR (Non-African Ame >60 (>=60); Glucose 91 mg/dL (74-106); Sodium 138 mmol/L (136-145)
[2024-02-20 22:08] VITALS: BP 130/72; PULSE 82; O2SAT 100
== END 2024-02-20 22:45 | disposition home or self-care (01) ==
PROVIDERS: Emergency Provider Emergency Medicine; PCP Internal Medicine
DX: R42 Dizziness and giddiness (principal); Z90.710 Acquired absence of both cervix and uterus
CPT/HCPCS: 36415; 80048; 85025; 93005; 96361; 96374; 96375; 96376; 99284; J2270; J2405

== ENCOUNTER 2024-12-13 16:45 | Emergency (ER) | payer BC, OTHER, SELFPAY ==
--- OUTSIDE RECORDS SUMMARY | 2016-02-03 13:15 | XMS_ITS | Encounter Summary ---
Demographics Address [address] [place] [address] Home Phone Mobile Phone Email Address Email Address Preferred Language Slovenian Marital Status Single Scientology Affiliation Unknown Race White Ethnic Group Not or Lati no Author Organization [facility] Address [address], [address] [place] [address] Care Team Providers Care Associate Software Application Engineer Name Role Phone Regina Johnson MD Primary Care Provider [phone] Encounter Details Date Type Department Care Team (Late st Contact Info) Description 02/03/2016 1:15 PM EDT Hospital Encounter [facility] Physical Therapy [address], [place] [id number] Regina Johnson MD [address] [place] [phone] Sean Vizcaino Social History Tobacco Use Types Packs/Day Years Used Date Smoking Tobacco: Never Smokeless Tobacco: Never Alcohol Use Standard Drinks/Week Comments Yes 0 (1 standard drink = 0.6 oz pur e alcohol) occasional AUDIT-C Answer Date Recorded Q1: How often do you have a drink containing alc ohol? Monthly or less 07/26/2024 Q2: How many drinks containi ng alcohol do you have on a typical day when you are drinking? 1 or 2 07/26/2024 Q3: How often do you have si x or more drinks on one occasion? Never 07/26/2024 Overall Financial Resource Strain (CARDIA) Answe r Date Recorded How hard is it for you to pa y for the very basics like food, housing, medical care, and heating? Not hard at all 04/03/2021 PHQ-2 Answer Date Recorded PHQ-9 Total Score 2 04/03/2021 Hunger Vital Sign Answer Date Recorded Within the past 12 months, y ou worried that your food would run out before you got the money to buy more. Never true 04/03/20 21 Within the past 12 months, t he food you bought just didn't last and you didn't have money to get more. Never true 04/03/2021 PRAPARE - Transportation Answer Date Re corded In the past 12 months, has l ack of transportation kept you from medical appointments or from getting medications? No 09/2020 In the past 12 months, has l ack of transportation kept you from meetings, work, or from getting things needed for daily living? No 04/03/2021 Interpersonal Safety Domain Source: IP Abuse Scr eening Answer Date Recorded Physical abuse Denies 07/26/2024 Verbal abuse Denies 07/26/2024 Emotional abuse Denies 07/26/2024 Financial abuse Denies 07/26/2024 Sexual abuse Denies 07/26/2024 Comments No Sex and Gender Information Value Date Recorded Sex Assigned at Female 07/26/2024 10:58 PM EST Legal Sex Female 7:39 PM EST Gender Identity Not on file Sexual Orientation Not on file COVID-19 Exposure Response Date Recorded In the last 10 days, have yo u been in contact with someone who was confirmed or suspected to have Coronavirus/COVID-19? No / Unsure 06/30/2022 6:28 PM EST documented as of this encounter Functional Status documented as of this encounter Progress Notes * Sean Vizcaino - 02/03/2016 5:51 PM EDT [facility] Outpatient Physical Therapy Orthotic/Inlay Date: 02/03/2016 Patient: Kavita Gaitan : 1995 [x] Patient received custom foot orthotics this date with proper fitting noted. Discussed appropriate wearing schedule and care for orthotics with good pt understanding noted. [] Foot orthotic re-check [] Foot orthotic re-check, orthotics sent back to lab for adjustmnents [] Plastazote inlay [] Othe Sean Vizcaino PTA Date: 02/03/2016 Cosigned by Sridevi Mejía PT at 02/19/2016 1:00 PM EDT documented in this encounter Plan of Treatment Not on file documented as of this encounter Visit Diagnoses Not on filedocumented in this encounter Additional Health Concerns Infection Onset Date Last Indicated Resolved Time COVID-19 (Rule Out) 10/02/2019 10/02/2019 10/04/19 20 10:22 PM EDT COVID-19 (Rule Out) 03/07/2020 03/07/2020 03/09/20 20 8:07 AM EDT COVID-19 (Rule Out) 03/16/2020 03/16/2020 03/17/20 20 11:10 AM EDT COVID-19 (Rule Out) 06/16/2021 06/16/2021 06/16/19 22 6:48 PM EST COVID-19 (Rule Out) 11/17/2023 11/17/2023 11/17/19 24 10:15 PM EDT documented as of this encounter Care Teams Associate Software Application Engineer Relationship Specialty Start Date End Date Regina Johnson MD [address] [place] [phone] PCP - General 03/27/12 10/10/21 documented as of this encounter
--- OUTSIDE RECORDS SUMMARY | 2024-12-05 12:45 | XMS_ITS | Encounter Summary ---
Author Organization [employer] tem Address [id number] [address] [place] [address] Care Team Providers Care Equipment Oiler Name Role Phone Tom Cruz DO Primary Care Provider [phone] Reason for Referral * Diagnostic Imaging (Routine) - Pending Review Specialty Diagnoses / Procedures Referred By Nolan boyd Referred To Contact Radiology Diagnoses Cervical radiculopathy Procedures MR cervical spine without contrast Tom Cruz DO [address] [place] [address] Phone: tel: fax: Referral ID Status Reason Start Date Expiration Date V isits Requested Visits Authorized [id number] Pending Review 12/05/2024 12/05/2025 1 1 Reason for Visit * Reason Comments Numbness At the base of her s kull, brain fog, goes into shoulder down to the right fingers Encounter Details Date Type Department Care Team (Late st Contact Info) Description 12/05/2024 12:45 PM EDT Office Visit [facility] Internal Medicine - Family Medicine [address] [place] [address] Tom Cruz DO [address] [place] [address] Cervical radiculopathy (Primary Dx); Nausea and vomiting, unspecified vomiting type Social History Tobacco Use Types Packs/Day Years Used Date Smoking Tobacco: Never Smokeless Tobacco: Never Alcohol Use Standard Drinks/Week Comments Not Currently 0 (1 standard drink = 0.6 oz pur e alcohol) [facility] Utilities Answer Date Recorded In the past 12 months has th e electric, gas, oil, or water company threatened to shut off services in your home? No 08/13/2024 Social Connection and Isolat ion Panel [NHANES] Answer Date Recorded In a typical week, how many times do you talk on the phone with family, friends, or neighbors? More than three times a week 04/26/2022 How often do you get togethe r with friends or relatives? Twice a week 04/26/2022 How often do you attend chur or adventism services? Patient declined 04/26/2022 Do you belong to any clubs o r organizations such as mosque groups, unions, fraternal or athletic groups, or school groups? No 04/26/2022 How often do you attend meet ings of the clubs or organizations you belong to? Patient declined 04/26/2022 Are you , , di vorced, , never , or living with a partner? Living with partner 04/26/2022 AUDIT-C Answer Date Recorded Q1: How often do you have a drink containing alcohol? Never 08/13/2024 Q2: How many drinks containi ng alcohol do you have on a typical day when you are drinking? Patient does not drink Q3: How often do you have si x or more drinks on one occasion? Never 08/13/2024 Overall Financial Resource Strain (CARDIA) Answe r Date Recorded How hard is it for you to pa y for the very basics like food, housing, medical care, and heating? Not very hard 04/26/2022 PHQ-2 Answer Date Recorded Total Score 0 12/05/2024 [facility] of Occupat ional Health - Occupational Stress Questionnaire Answer Date Recorded Do you feel stress - tense, restless, nervous, or anxious, or unable to sleep at night because your mind is troubled all the time - these days? Rather much 04/26/2022 Exercise Vital Sign Answer Date Recorde d On average, how many days pe r week do you engage in moderate to strenuous exercise (like a brisk walk)? 5 days On average, how many minutes do you engage in exercise at this level? Patient declined 04/26/2022 PRAPARE - Transportation Answer Date Re corded In the past 12 months, has l ack of transportation kept you from medical appointments or from getting medications? No 07/28 In the past 12 months, has l ack of transportation kept you from meetings, work, or from getting things needed for daily living? No 08/13/2024 Housing Instability Answer Date Recorde d Are you worried or concerned that in the next two months you may not have stable housing that you own, rent or stay in as a part of a household? No 08/13/2024 Childcare Answer Date Recorded Do problems getting child ca re make it difficult for you to work or study? No 04/26/2022 Employment Answer Date Recorded Do you need help finding a [facility] center and/or a training program? No 04/26/2022 Hunger Screening Answer Date Recorded Within the past 12 months we worried whether our food would run out before we got money to buy more. Never True 12/05/2024 Within the past 12 months th e food we bought just didn't last and we didn't have money to get more. Never True 12/05/2024 Purpose - Life Answer Date Recorded I have a purpose and direction in my life. Agree 04/26/2022 Education Answer Date Recorded What is the highest level of school you have completed or the highest degree you have received? 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 Not on file Not on file documented as of this encounter Last Filed Vital Signs Vital Sign Reading Time Taken Comments Blood Pressure 108/62 12/05/2024 12:50 PM EDT Pulse 100 12/05/2024 12:50 PM EDT Temperature 36.8 C (98.3 F) 12/05/2024 12:50 PM EDT Respiratory Rate 20 12/05/2024 12:50 PM EDT Oxygen Saturation 98% 12/05/2024 12:50 PM EDT Inhaled Oxygen Concentration - - Weight 76.8 kg (169 lb 6.4 oz) 12/05/2024 12:50 PM EDT Height 165.1 cm (5' 5 ) 12/05/2024 12:50 PM EDT Body Mass Index 28.19 12/05/2024 12:50 PM EDT documented in this encounter Progress Notes * Tom Cruz, DO - 12/05/2024 12:45 PM EDT IM PROGRESS NOTE Patient - Kavita Quijano Age - 29 y.o. - 1995 ASSESSMENT & PLAN 1. Cervical radiculopathy (Primary) - patient with symptoms concerning for cervical radiculopathy on the left arm - exam findings suggest a possible C6 or C7 lesion - will obtain MRI of the cervical spine in the meantime, will use tizanidine to help symptom relief. I am hesitant to add gabapentin or pregabalin to her other antipsychotic medications. - MR cervical spine without contrast; Future - tiZANidine (ZANAFLEX) 4 mg tablet; Take 1 tablet (4 mg total) by mouth 2 (two) times a day as needed for muscle spasms. Dispense: 20 tablet; Refill: 0 2. Nausea and vomiting, unspecified vomiting type - chronic problem and needs refill on the Phenergan to control symptoms as needed - promethazine (PHENERGAN) 25 mg tablet; Take 1 tablet (25 mg total) by mouth every 6 (six) hours as needed (headache, nausea, or vomiting). Dispense: 20 tablet; Refill: 0 Subjective 29-year-old female presents for evaluation of numb and tingling sensation noted in her cervical spine, which radiates down the spine to the thoracic region, and concomitant numbness and tingling downher left arm to her fingers. - the symptoms started about 7-10 days ago. Initially was noted in the neck, and then started spreading down the left arm. The numbness in the neck is constant, but the numb feeling in the arm is worse at nighttime or when she tries to use her arm and hand. - has not lost any strength, or dropped any objects to this point -does not recall any injury to her neck, left shoulder or arm. - she did take someone else's tizanidine several nights ago, and this allowed her to sleep, but didnot actually resolve the discomfort. - does feel discomfort into the left scapular area as well A review of systems was negative except for the following: Psychiatric: anxiety, concentration difficulties, and Having more brain fog with the above symptoms. Has had some changes to her antipsychotic regimen. Neurological: Her POTS symptoms have been stable and less severe, and [facility]. Exam BP 108/62 (BP Site: Left Arm, BP Postition: Sitting, BP CUFF SIZE: M (9-13 inches)) Pulse 100 Temp 36.8 ??C (98.3 ??F) (Oral) Resp 20 Ht 165.1 cm (5' 5 ) Wt 76.8 kg (169 lb 6.4 oz) LMP 01/09/2024 SpO2 98% BMI 28.19 kg/m?? Physical Exam Vitals reviewed. Constitutional: General: She is not in acute distress. Appearance: She is not toxic-appearing. HENT: Head: Normocephalic. Right Ear: External ear normal. Left Ear: External ear normal. Mouth/Throat: Mouth: Mucous membranes are moist. Eyes: General: No scleral icterus. Neck: Comments: ROM: Right rotation 75?? with discomfort in the left neck and shoulder Left rotation 90?? without discomfort Cardiovascular: Rate and Rhythm: Normal rate and regular rhythm. Pulses: Normal pulses. Heart sounds: No murmur heard. No gallop. Pulmonary: Effort: Pulmonary effort is normal. Breath sounds: No wheezing or rales. Abdominal: Palpations: Abdomen is soft. Musculoskeletal: Cervical back: Tenderness (Bilateral paraspinal muscles, especially at the C2, C3 level) present. Right lower leg: No edema. Left lower leg: No edema. Skin: General: Skin is warm and dry. Coloration: Skin is not jaundiced. Findings: No bruising. Neurological: Mental Status: She is alert and oriented to person, place, and time. Sensory: Sensory deficit (Decreased pinprick sensation in the radial side of the left forearm and hand) present. Motor: No weakness. Deep Tendon Reflexes: Reflexes normal (Triceps 1+/4 bilaterally, brachioradialis 1+/4 bilaterally, biceps 1+/4 bilaterally). Psychiatric: Mood and Affect: Mood normal. Behavior: Behavior normal. Meds Current Outpatient Medications: acetaminophen (TylenoL) 325 mg tablet, Take 2 tablets (650 mg total) by mouth every 6 (six) hours as needed for pain or headaches., Disp: 30 tablet, Rfl: 0 albuterol (PROVENTIL HFA;VENTOLIN HFA) 90 mcg/actuation inhaler, Inhale 2 puffs every 4 (four) hours as needed for wheezing., Disp: 18 g, Rfl: 0 APRI 0.15-0.03 mg per tablet, , Disp: , Rfl: ashwagandha root extract 300 mg tablet, Take 300 mg by mouth in the morning and 300 mg before bedtime., Disp: , Rfl: desvenlafaxine (PRISTIQ) 50 mg 24 hr tablet, Take 1 tablet (50 mg total) by mouth., Disp: , Rfl: divalproex (DEPAKOTE) 500 mg EC tablet, Take 1 tablet (500 mg total) by mouth 3 (three) times a day., Disp: , Rfl: famotidine (PEPCID) 20 mg tablet, Take 1 tablet (20 mg total) by mouth nightly as needed for heartburn or indigestion., Disp: , Rfl: levomefolate/algal oil (L-METHYLFOLATE FORMULA ORAL), Take 15 mg by mouth in the morning., Disp: , Rfl: LORazepam (ATIVAN) 0.5 mg tablet, Take 1 tablet (0.5 mg total) by mouth. prn, Disp: , Rfl: magnesium oxide (MAGOX) 400 mg tablet, Take 1 tablet (400 mg total) by mouth in the morning., Disp:9 tablet, Rfl: 4 methylphenidate HCl (CONCERTA) 36 mg CR tablet, 1 tablet (36 mg total) every morning., Disp: , Rfl: riboflavin, vitamin B2, 400 mg tablet, Take 400 mg by mouth in the morning., Disp: 30 tablet, Rfl: 4 ubrogepant (UBRELVY) 50 mg tablet, Take 50 mg by mouth as needed (Headache)., Disp: 10 tablet, Rfl:0 ziprasidone (GEODON) 20 mg capsule, Take 1 capsule (20 mg total) by mouth in the morning and 1 capsule (20 mg total) in the evening. Take with meals. 20 mg in am, 40 mg in pm ., Disp: , Rfl: Bacillus coagulans/inulin (PROBIOTIC WITH PREBIOTIC ORAL), Take 500,000 Million Cells by mouth in the morning. (Patient not taking: Reported on 12/05/2024), Disp: , Rfl: promethazine (PHENERGAN) 25 mg tablet, Take 1 tablet (25 mg total) by mouth every 6 (six) hours as needed (headache, nausea, or vomiting)., Disp: 20 tablet, Rfl: 0 tiZANidine (ZANAFLEX) 4 mg tablet, Take 1 tablet (4 mg total) by mouth 2 (two) times a day as needed for muscle spasms., Disp: 20 tablet, Rfl: 0 Lab Results No visits with results within 1 Month(s) from this visit. Latest known visit with results is: Admission on 10/04/2024, Discharged on 10/05/2024 Component Date Value Ref Range Status Extra Tube 10/04/2024 Auto Resulted Final WBC 10/04/2024 9.7 4 - 11 x10E9/L Final RBC Count 10/04/2024 4.28 3.8 - 5.2 X10E12/L Final Hemoglobin 10/04/2024 13.0 11.7 - 15.5 g/dL Final Hematocrit 10/04/2024 38.0 35 - 47 % Final MCV 10/04/2024 89 80 - 100 fL Final MCH 10/04/2024 30.4 27 - 34 pg Final MCHC 10/04/2024 34.2 32 - 36 g/dL Final RDW 10/04/2024 13.4 11.5 - 15 % Final Platelet Count 10/04/2024 289 150 - 450 X10E9/L Final MPV 10/04/2024 8.8 7 - 12 fL Final Neutrophils % 10/04/2024 54.9 % Final Lymphocytes % 10/04/2024 37.1 % Final Monocytes % 10/04/2024 7.0 % Final Eosinophils % 10/04/2024 0.7 % Final Basophils % 10/04/2024 0.3 % Final Neutrophils Absolute (A) 10/04/2024 5.3 1.5 - 6.6 10*3/uL Final Lymphocytes Absolute 10/04/2024 3.6 (H) 1.0 - 3.5 10*3/uL Final Monocytes Absolute 10/04/2024 0.7 0.0 - 0.9 10*3/uL Final Eosinophils Absolute 10/04/2024 0.1 0.0 - 0.4 10*3/uL Final Basophils Absolute 10/04/2024 0.0 0.0 - 0.2 10*3/uL Final Differential Type 10/04/2024 AUTOMATED DIFFERENTIAL Final SODIUM 10/04/2024 138 134 - 146 mmol/L Final POTASSIUM 10/04/2024 3.6 3.5 - 5.0 mmol/L Final CHLORIDE 10/04/2024 108 98 - 109 mmol/L Final CARBON DIOXIDE 10/04/2024 24 22 - 32 mmol/L Final ANION GAP 10/04/2024 6 5 - 15 mmol/L Final BLOOD UREA NITROGEN 10/04/2024 13 5 - 23 mg/dL Final CREATININE 10/04/2024 0.92 0.40 - 1.00 mg/dL Final GLUCOSE 10/04/2024 105 (H) 65 - 99 mg/dL Final CALCIUM 10/04/2024 8.7 8.5 - 10.5 mg/dL Final TOTAL PROTEIN 10/04/2024 7.1 6.0 - 8.0 g/dL Final ALBUMIN 10/04/2024 4.0 3.2 - 5.3 g/dL Final ALKALINE PHOSPHATASE 10/04/2024 47 39 - 130 U/L Final AST 10/04/2024 18 <=41 U/L Final ALT 10/04/2024 15 <=31 U/L Final BILIRUBIN,TOTAL 10/04/2024 0.5 0.3 - 1.2 mg/dL Final EGFR Non-Race Dependent 10/04/2024 88 >=60 ml/min/1.73sq.m Final LACTATE W/REFLEX 10/04/2024 0.6 0.4 - 2.0 mmol/L Final LIPASE 10/04/2024 49 (H) 17 - 40 U/L Final TROPONIN I, HIGH SENSITIVITY 10/04/2024 <2 <16 ng/L Final FLU A PCR 10/04/2024 Negative Negative Final FLU B PCR 10/04/2024 Negative Negative Final RSV BY PCR 10/04/2024 Negative Negative Final SARS COV 2 BY PCR 10/04/2024 Not Detected Not Detected Final TROPONIN I, HIGH SENSITIVITY 10/05/2024 <2 <16 ng/L Final Extra Tube 10/04/2024 Auto Resulted Final POC Urine Specific [place] 10/04/2024 1.015 1.010, 1.015, 1.020, 1.025 Final POC Urine Leukocyte Esterase 10/04/2024 Negative Negative Final POC Urine Nitrite 10/04/2024 Negative Negative Final POC Urine pH 10/04/2024 7.0 5.0, 6.0, 6.5, 7.0, 7.5, 8.0, 8.5, 5.5 Final POC Urine Protein 10/04/2024 Negative Negative Final POC Urine Glucose 10/04/2024 Negative Negative Final POC Urine Ketones 10/04/2024 Negative Negative Final POC Urine Urobilinogen 10/04/2024 0.2 E.U./dL Final POC Urine Bilirubin 10/04/2024 Negative Negative Final POC Urine Blood/HGB 10/04/2024 Negative Negative Final Other Testing X-ray chest 1 view Result Date: 10/05/2024 HISTORY: Chest pain, fever COMPARISON: Chest x-ray 07/13/2024 FINDINGS: AP upright view of the chestwas performed. Heart size is normal. Lungs demonstrate no significant airspace consolidation or vascular congestion. There is no pneumothorax or pleural effusion. IMPRESSION: * No acute abnormality. W orkstation:[id number] Finalized by Parker Trinidad MD on 10/05/2024 1:03 AM Tom Cruz DO., [facility] Office: [phone] documented in this encounter Plan of Treatment Upcoming Encounters Date Type Department Care Team (Late st Contact Info) Description 05/06/2025 1:15 PM EST Office Visit [facility] Cardiology [address] [place] [phone] Javier Gurrola MD [address] [place], [place] [id number] Scheduled Orders Name Type Priority Associated Diagnoses Orde r Schedule MR cervical spine without contrast Imaging Routine Cervical radiculopathy Expected: 12/05/2024, Expires: 12/05/2025 documented as of this encounter Goals Goal Patient Goal Type Associated Problems Recent Progress Patient-Stated? Author Return home General Yes Anusha Guevara, RN Note: Evaluation of progress towards goal: Plan to return home. documented as of this encounter Visit Diagnoses Diagnosis Cervical radiculopathy- Primary Brachial neuritis or radiculitis nos Nausea and vomiting, unspecified vomiting type documented in this encounter Additional Health Concerns Assessment Noted Time PHQ-9 Depression Total Score: 0 12/06/19 25 12:50 PM EDT A Body Mass Index follow-up plan has been documented for the patient 01/10/2024 4:11 PM EDT documented as of this encounter Care Teams Equipment Oiler Relationship Specialty Start Date End Date Tom Cruz DO [address] [place] [address] PCP - General Internal Medicine 12/19/22 documented as of this encounter
[2024-12-13 16:48] VITALS: BP 142/96; PULSE 92; TEMP 36.8; O2SAT 100; BMI 27.5
--- NOTE | 2024-12-13 17:04 | US_ITS ---
The [address] [address] Patient Name: LULÚ CHE MRN: [id number] date: 1995 Sex: F Assigned Patient Location: ED.MAIN Current Patient Location: ED.MAIN Accession/Order Number: [id number] Exam Date: 12/13/2024 19:00 Report Date: 12/13/2024 19:03 At the request of: LUIS HODGES MD Procedure: US pelvis transvaginal EXAMINATION TYPE: US pelvis transvaginal Grayscale, color scale Doppler, vascular duplex analysis of the bilateral ovaries DATE OF EXAM ORDERED: 12/13/2024 6:50 PM HISTORY: Left lower quadrant pain, rule out ovarian cyst, history of hysterectomy COMPARISON: NONE TECHNIQUE: Realtime Transvaginal and Transabdominal imaging was performed. Transvaginal imaging was utilized to better evaluate the ovaries and the endometrial stripe. Grayscale, color scale Doppler, vascular duplex analysis of the bilateral ovaries was performed to assess blood flow. FINDINGS: Ovaries: The visualized left ovary is within normal limits for songraphic evaluation. The right ovary is not visualized due to overlying bowel gas. Left Ovary measurements: 3.0 x 1.5 x 1.8 cm No abnormal adnexal mass is seen. No free fluid in the pelvic cul-de-sac. Vascular duplex analysis of the left ovary demonstrates normal blood flow without evidence of ovarian ischemia. US/US pelvis transvaginal IMPRESSION: Status post hysterectomy No ovarian cyst is noted on the left. The right ovary is not visualized. No evidence of ovarian ischemia. Impression dictated by: Dimitri Crowley M.D. 12/13/2024 7:03 PM Dictation Location: [place] [address] Electronically authenticated by: [id number] Y Date: 12/13/2024 19:03
--- OUTSIDE RECORDS SUMMARY | 2024-12-13 17:06 | XMS_ITS | Encounter Summary ---
Author Organization [facility] Georgina Goodman s tem Address [id number] [address] [place] [address] Care Team Providers Care Door Hanger Name Role Phone Tom Cruz Primary Care Provider [phone] Encounter Details Date Type Department Care Team (Late st Contact Info) Description 01/25/2023 Orders Only [facility] Internal Medicine - Family Medicine [address] [place] [phone] Kayla Daley CMA Delayed gastric emptying Social History Tobacco Use Types Packs/Day Years Used Date Smoking Tobacco: Former Vaping/E-cigarettes Smokeless Tobacco: Never Alcohol Use Standard Drinks/Week Comments Yes 0 (1 standard drink = 0.6 oz pur e alcohol) occasionally Social Connection and Isolat ion Panel [NHANES] Answer Date Recorded In a typical week, how many times do you talk on the phone with family, friends, or neighbors? More than three times a week 04/26/2022 How often do you get togethe r with friends or relatives? Twice a week 04/26/2022 How often do you attend chur ch or yarsanism services? Patient declined 04/26/2022 Do you belong to any clubs o r organizations such as restoration groups, unions, fraternal or athletic groups, or school groups? No 04/26/2022 How often do you attend meet ings of the clubs or organizations you belong to? Patient declined 04/26/2022 Are you , , di vorced, , never , or living with a partner? Living with partner 04/26/2022 AUDIT-C Answer Date Recorded Q1: How often do you have a drink containing alcohol? Never 04/26/2022 Q2: How many drinks containi ng alcohol do you have on a typical day when you are drinking? Patient does not drink Q3: How often do you have si x or more drinks on one occasion? Never 04/26/2022 Overall Financial Resource Strain (CARDIA) Answe r Date Recorded How hard is it for you to pa y for the very basics like food, housing, medical care, and heating? Not very hard 04/26/2022 PHQ-2 Answer Date Recorded Total Score 0 01/27/2023 [facility] [place] of Occupat ional Health - Occupational Stress [...] medical appointments or from getting medications? No 03/31 In the past 12 months, has l ack of transportation kept you from meetings, work, or from getting things needed for daily living? No 04/26/2022 Childcare Answer Date Recorded Do problems getting child ca re make it difficult for you to work or study? No 04/26/2022 Employment Answer Date Recorded Do you need help finding a l ocal career center and/or a training program? No 04/26/2022 Purpose - Life Answer Date Recorded I [...] on file documented as of this encounter Plan of Treatment Upcoming Encounters Date Type Department Care Team (Late st Contact Info) Description 05/06/2025 1:15 PM EST Office Visit [facility] Cardiology [address] [place] [phone] Javier Gurrola MD [address] [place] [address] documented as of this encounter Procedures Procedure Name Priority Date/Time Associated Diagnosis Comments NM GASTRIC EMPTYING SOLID Routine 01/25/2023 7:54 AM EDT Delayed gastric emptying documented in this encounter Results * NM gastric emptying solid (01/25/2023 7:54 AM EDT) Anatomical Region Laterality Modality Nuc Med N/A Nuclear Medicine Tom Cruz DO IMG NM ORDERABLES Final Result documented in this encounter Visit Diagnoses Diagnosis Delayed gastric emptying Dyspepsia and other specified disorders of function of stomach documented in this encounter Additional Health Concerns Infection Onset Date Last Indicated Resolved Time COVID-19 Rule-Out 04/21/2024 04/21/2024 04/21/2024 8:21 PM EST Respiratory Rule-Out 10/04/2024 10/04/2024 025 1:35 AM EDT Assessment Noted Time PHQ-9 Depression Total Score: 6 04/26/20 22 10:36 AM EST documented as of this encounter Care Teams Door Hanger Relationship Specialty Start Date End Date Tom Cruz DO [address] [place] [address] PCP - General Internal Medicine 12/19/22 documented as of this encounter
--- OUTSIDE RECORDS SUMMARY | 2024-12-13 17:06 | XMS_ITS | Encounter Summary ---
Author Organization [facility] Address [address] [place] [address] Support Name Relationship Address Phone Wai Quijano Spouse [address], [place] [address] Ana Gaitan Mother [address] [place] [address] Benny Gaitan Father [address] [place] [address] Care Team Providers Care Acute Dialysis Registered Nurse Name Role Phone Agustin Ramos MD Primary Care Provid er Tom Cruz [facility] [phone] Source Comments In the event this information is protected by the Federal Confidentiality of Alcohol and Drug AbusePatient Records regulations: The Federal rules restrict any use of the information to criminally investigate or prosecute any alcohol or drug abuse patient.[facility] Encounter Details Date Type Department Care Team (Late st Contact Info) Description 08/21/2024 Patient Msg HOSP MAIN M060 [address] [place] [address] Provider, [facility] EMU scheduling Social History Tobacco Use Types Packs/Day Years Used Date Smoking Tobacco: Never Assessed Area Deprivation Index Answer Date John rded National Score (1-100), lower number is lower ri sk 80 07/13/2024 State Score (1-10), lower number is lower risk 7 07/13/2024 Data from: https://www.neighborhoodatlas.[facility].edu/. Last address used for calculation [address] 07/13/2024 Comments Unknown Sex and Gender Information Value Date Recorded Sex Assigned at Female 07/06/2024 1:13 PM EST Legal Sex Female 10:04 AM EST Gender Identity Female 07/06/2024 1:13 PM EST Sexual Orientation Straight 07/06/2024 1: 13 PM EST documented as of this encounter Plan of Treatment Upcoming Encounters Date Type Department Care Team (Late st Contact Info) Description 01/22/2025 5:00 PM EDT [facility] [address] [place] [address] Rosita Wick, PhD [address] [place] [address] pnes 01/29/2025 5:00 PM EDT [facility] Neurology [address] [place] [address] Rosita Wick, PhD [address] [place] [address] pnes 02/05/2025 5:00 PM EDT [facility] Neurology [address] [place] [address] Rosita Wick, PhD [address] [place] [address] pnes 02/11/2025 5:00 PM EDT [facility] Neurology [address] [place] [address] Rosita Wick, PhD [address] [place] [address] pnes 02/19/2025 5:00 PM EDT [facility] Neurology [address] [place] [address] Rosita Wick, PhD [address] [place] [address] pnes 02/26/2025 5:00 PM EDT [facility] [address] [facility] [place] [place] [address] Rosita Wick, PhD [address] [place] [address] pnes 03/05/2025 5:00 PM EDT [facility] [address] [place] [address] Rosita Wick, PhD [address] [place] [address] pnes 03/12/2025 5:00 PM EDT [facility] [address] [place] [address] Rosita Wick, PhD [address] [place] [address] pnes 03/19/2025 5:00 PM EDT [facility] [address] [place] [address] Rosita Wick, PhD [address] [place] [address] pnes 03/26/2025 5:00 PM EDT [facility] [address] [place] [address] Rosita Wick, PhD [address] [place] [address] pnes 04/02/2025 5:00 PM EST [facility] [address] [place] [address] Rosita Wick, PhD [address] [place], [place] [id number] pnes 04/09/2025 5:00 PM [facility] Neurology [address] [facility] [place] [address] Rosita Wick, PhD [address] [place] [address] pnes documented as of this encounter Visit Diagnoses Not on filedocumented in this encounter Care Teams Acute Dialysis Registered Nurse Relationship Specialty Start Date End Date Agustin Ramos MD [address] [place] [phone] PCP - General 01/27/04 Tom Cruz [address] [place] [address] Referring Internal Medicine 02/10/23 documented as of this encounter
--- OUTSIDE RECORDS SUMMARY | 2024-12-13 17:06 | XMS_ITS | Clinical Summary ---
Demographics Address [address] [place] [address] Home Phone Mobile Phone Email Address Email Address Preferred Language Honduran Marital Status Single Samaritan Affiliation Unknown Race White Ethnic Group Not or Lati no Author Organization [facility] Address [address], [address] [place] [address] Care Team Providers Care Senior Materials Planner Name Role Phone Mike Lewis MD Primary Care Provider [phone] Allergies Active Allergy Reactions Criticality Noted Date Comments Bee Venom 07/15/2014 Erythromycin 07/15/2014 Hydrocodone Hallucinations 01/11/2024 Lamotrigine Swelling 06/30/2022 Lurasidone Other (See Comments) 03/10/2023 Increased depression/SI Medications traZODone (DESYREL) 50 MG tablet Take 2 tablets by mouth nightly 0 7 Active desvenlafaxine succinate (PRISTIQ) 100 MG TB24 extended release tablet Take 100 mg by mouth daily Active busPIRone (BUSPAR) 15 MG tablet Take 30 mg by mouth in the morning and 30 mg in the evening. 8 Active albuterol sulfate (PROAIR RESPICLICK) 108 (90 Base) MCG/ACT aerosol powder inhalationIndi cations:Wheezi ng Inhale 2 puffs into the lungs every 6 hours as needed for Shortness of Breath 1 Inhaler 1 9 Active ALPRAZolam (XANAX) 0.5 MG tablet Take 0.5 mg by mouth nightly as needed for Sleep. Active hydrOXYzine (ATARAX) 10 MG tablet Take 25 mg by mouth 3 times daily as needed for Itching Active pantoprazole (PROTONIX) 40 MG tablet take 1 tablet by mouth once daily 90 tablet 1 Active Additional Information Patient taking differently: 40 mg DAILY, Reported on 06/05/2024 paliperidone (INVEGA) 9 MG extended release tablet Take 9 mg by mouth every morning Active pramipexole (MIRAPEX) 0.5 MG tablet Take 0.5 mg by mouth 3 times daily Active Cholecalcifero l (VITAMIN D) 50 MCG (1999 UT) CAPS capsule Take by mouth Active ondansetron (ZOFRAN) 4 MG tablet Take 1 tablet by mouth daily as needed for Nausea or Vomiting 30 tablet 2 Active Additional Information Patient not taking.Reported on 06/30/2022 ARIPiprazole (ABILIFY) 5 MG tablet Take 15 mg by mouth daily Active phentermine 37.5 MG capsule Take 37.5 mg by mouth every morning. Active docusate sodium (COLACE) 100 MG capsule Take 100 mg by mouth 2 times daily Active famotidine (PEPCID) 20 MG tablet Take 1 tablet by mouth daily HS Active ondansetron (ZOFRAN) 40 MG/20ML SOLN injection Infuse 4 mg intravenously every 6 hours as needed for Nausea or Vomiting Active amphetamine-de xtroamphetamin e (ADDERALL) 30 MG tablet Take 20 mg by mouth 2 times daily. Active fexofenadine (RADHA ALLERGY) 60 MG tablet Take 1 tablet by mouth daily Active FLUoxetine (PROZAC) 20 MG capsule Take 2 capsules by mouth daily Active Lumateperone Tosylate (CAPLYTA) 42 MG capsule Take 1 capsule by mouth daily HS Active omeprazole (PRILOSEC) 20 MG delayed release capsule Take 1 capsule by mouth daily HS Active clonazePAM (KLONOPIN) 0.5 MG tablet Take 1 tablet by mouth 2 times daily as needed for Anxiety. One tablet nightly, another PRN Active lisdexamfetami ne (VYVANSE) 70 MG capsule Take 1 capsule by mouth every morning. Max Daily Amount: 70 mg Active lithium (LITHOBID) 300 MG extended release tablet Take 2 tablets by mouth 2 times daily Active cloNIDine (CATAPRES) 0.1 MG tablet Take 2 tablets by mouth nightly Active dicyclomine (BENTYL) 10 MG capsule Take 1 capsule by mouth 4 times daily (before meals and nightly) for 15 days 60 capsule 5 Active Active Problems Problem Noted Date Diagnosed Date Gross hematuria 03/01/2019 Migraine with aura and witho ut status migrainosus, not intractable 01/03/2017 Nonintractable migraine 11/24/2016 Acute midline low back pain with sciatica 2016 Epigastric pain 09/13/2015 Insomnia 06/24/2015 Depression 04/30/2015 Asthmatic bronchitis 02/04/2015 Generalized anxiety disorder 10/09/2014 Immunizations Immunization Administration Dates Next Due DTaP 11/11/2015, 8,1997,1997,1997 Hepatitis B 1997,1997,1997 Hepatitis B (Recombivax HB) 12/17/2015 Hepatitis B vaccine 12/17/2015, 8,1997,1996 Hib, unspecified 05/17/1998, 8,1997,1996 Influenza Vaccine, unspecifi ed formulation 01/27/2016 Influenza Virus Vaccine 05/02/2018 MMR, PRIORIX, M-M-R II, (age 12m+), SC, 0.5mL 10/17/2002,03/27/1998 Poliovirus, IPOL, (age 6w+), SC/IM, 0.5mL 10/17/2002,05/17/1998,1997,1996 Family History Medical History Relation Name Comments High Blood Pressure Mother Migraines Mother Thyroid Disease Mother Relation Name Status Comments Father Alive Mother Alive Social History Tobacco Use Types Packs/Day Years Used Date Smoking Tobacco: Never Smokeless Tobacco: Never Tobacco Cessation:Counseling Given: Yes Alcohol Use Standard Drinks/Week Comments Yes 0 [...] on file Sexual Orientation Not on file Last Filed Vital Signs Vital Sign Reading Time Taken Comments Blood Pressure 106/70 07/27/2024 12:26 AM EST Pulse 85 07/27/2024 1:08 AM EST Temperature 37.7 C (99.8 F) 07/27/2024 1:11 AM EST Respiratory Rate 19 07/27/2024 1:08 AM EST Oxygen Saturation 100% 07/27/2024 1:08 AM EST Inhaled Oxygen Concentration - - Weight 70.8 kg (156 lb) 07/26/2024 10:30 PM EST Height 165.1 cm (5' 5 ) 07/26/2024 10:30 PM EST Body Mass Index 25.96 07/26/2024 10:30 PM EST Plan of Treatment Health Maintenance Due Date Last Done Comments Depression Monitoring 2009 Varicella vaccine (2 of 2 - 13+ 2-dose series) 02/05/2014 01/08/2014 Hepatitis C screen 2015 Pneumococcal 0-49 years Vaccine (1 of 2 - PCV) 2016 Pap smear 2018 COVID-19 Vaccine (6 - season) 2024 03/17/2021, 03/16/2021, 02/28/2021, Additional history exists Flu vaccine (#1) 12/28/2024 04/28/2021, 08/2017, 01/27/2016 HIV screen 04/09/2026 Postponed from 2012 (Unavailable) DTaP/Tdap/Td vaccine (9 - Td or Tdap) 09/17/2032 09/17/2022, 11/11/2015, 11/11/2015, Additional history exists Hib vaccine Completed 05/17/1998, 02/28, 1997, Additional history exists Polio vaccine Completed 10/17/2002, 04/29, 1997, Additional history exists Hepatitis B vaccine Completed 12/29/2015, 12/17/2015, 12/17/2015, Additional history exists Chlamydia/GC screen Discontinued 02/06/2019, 9 HPV vaccine Aged Out No longer eligi ble based on patient's age to complete this topic Hepatitis A vaccine Aged Out No longe r eligible based on patient's age to complete this topic Meningococcal (ACWY) vaccine Aged Out No longer eligible based on patient's age to complete this topic Meningococcal B vaccine Aged Out No l onger eligible based on patient's age to complete this topic Procedures Procedure Name Priority Date/Time Associated Diagnosis Comments C.TRACHOMATIS N.GONORRHOEAE DNA, URINE Routine 02/06/2019 12:22 PM EDT Gross hematuria Urgency of urination from Last 3 Months or Most Recently Relevant to Health Maintenance Results * C.trachomatis N.gonorrhoeae DNA, Urine (02/06/2019 12:22 PM EDT) Specimen Description .URINE 02/06/2019 12:22 PM EDT [employer] C. trachomatis DNA ,Urine NEGATIVE NEGATIVE 02/06/2019 12:22 PM EDT [employer] Comment: CHLAMYDIA TRACHOMATIS DNA not detected by nucleic acid amplification. This test is intended for medical purposes only and is not valid for the evaluation of suspected sexual abuse or for other forensic purposes. In certain contexts, culture may be required to meet applicable laws and regulations for diagnosis of C. trachomatis and N. gonorrhoeae infections. Per 2014 CDC recommendations, this test does not include confirmation of positive results by an alternative nucleic acid target. N. gonorrhoeae DNA, Urine NEGATIVE NEGATIVE 02/06/2019 12:22 PM EDT [employer] Comment: NEISSERIA GONORRHOEAE DNA not detected by nucleic acid amplification. This test is intended for medical purposes only and is not valid for the evaluation of suspected sexual abuse or for other forensic purposes. In certain contexts, culture may be required to meet applicable laws and regulations for diagnosis of C. trachomatis and N. gonorrhoeae infections. Per 2014 CDC recommendations, this test does not include confirmation of positive results by an alternative nucleic acid target. Urine 02/06/2019 12:2 2 PM EDT 02/06/2019 12:22 PM EDT Usha Damico CYTOGENETIC TECHNOLOGIST - RADIO SURVEY WORKER MICROBIOLOGY - [facility] ORDERABLES Final Result [facility] [address] [place] [address], [facility] [phone] [place] [id number] [place] [id number], [facility] [phone] from Last 3 Months or Most Recently Relevant to Health Maintenance Insurance [address] [place] [id number] [employer] * Guarantor: Kavita Quijano Account Type Relation to Patient Date of Phone Billing Address Personal/Family Self 1995 [address] [place] [address] Care Teams Senior Materials Planner Relationship Specialty Start Date End Date Mike Lewis MD [address] [place] [address] PCP - General Internal Medicine 06/30/22
--- OUTSIDE RECORDS SUMMARY | 2024-12-13 17:06 | XMS_ITS | Encounter Summary ---
Author Organization [facility] Address [address] [place] [address] Support Name Relationship Address Phone Wai Quijano Spouse [address], [facility] [place] [address] Ana Gaitan Mother [address] [place] [address] Benny Gaitan Father [address] [place] [address] Care Team Providers Care Systems Manager Name Role Phone Agustin Ramos MD Primary Care Provid er Tom Cruz [facility] [phone] Source Comments In the event this information is protected by the Federal Confidentiality of Alcohol and Drug AbusePatient Records regulations: The Federal rules restrict any use of the information to criminally investigate or prosecute any alcohol or drug abuse patient.[facility] Encounter Details Date Type Department Care Team (Late st Contact Info) Description 10/15/2024 Patient Msg Neurology [address] [place] [address] Rosita Wick, PhD [address] [place] [address] Seizure program Social History Tobacco Use Types Packs/Day Years Used Date Smoking Tobacco: Never Smokeless Tobacco: Never Alcohol Use Standard Drinks/Week Comments Never 0 (1 standard drink = 0.6 oz pur e alcohol) PHQ-2 Answer Date Recorded PHQ-2 score 3 10/15/2024 Area Deprivation Index Answer Date John rded National Score (1-100), lower number is lower ri sk 80 07/13/2024 State Score (1-10), lower number is lower risk 7 07/13/2024 Data from: https://www.neighborhoodatlas.[facility]/. Last address used for calculation [address] 07/13/2024 Comments Unknown Sex and Gender [...] Contact Info) Description 01/22/2025 5:00 PM EDT [facility] [address] [place] [address] Rosita Wick, PhD [address] [place] [address] pnes 01/29/2025 5:00 PM EDT [facility] [address] [place] [address] Rosita Wick, PhD [address] [place] [address] pnes 02/05/2025 5:00 PM EDT [facility] [address] [place] [address] Rosita Wick, PhD [address] [place] [address] pnes 02/11/2025 5:00 PM EDT [facility] [address] [place] [address] Rosita Wick, PhD [address] [place] [address] pnes 02/19/2025 5:00 PM EDT [facility] [address] [place] [address] Rosita Wick, PhD [address] [place] [address] pnes 02/26/2025 5:00 PM EDT [facility] [address] [place] [address] Rosita Wick, PhD [address] [place] [address] pnes 03/05/2025 5:00 PM EDT [facility] [address] [place] [address] Rosita Wick, PhD [address] [place] [address] pnes 03/12/2025 5:00 PM EDT [facility] [address] [place] [address] Rosita Wick, PhD [address] [place] [address] pnes 03/19/2025 5:00 PM EDT [facility] [address] [place] [address] Rosita Wick, PhD [address] [place] [address] pnes 03/26/2025 5:00 PM EDT [facility] [address] [place] [address] Rosita Wick, PhD [address] [place] [address] pnes 04/02/2025 5:00 PM EST [facility] [address] [place] [address] Rosita Wick, PhD [address] [place] [address] pnes 04/09/2025 5:00 PM EST [facility] [address] [place] [address] Rosita Wick, PhD [address] [place], [place] [id number] pnes documented as of this encounter Visit Diagnoses Not on filedocumented in this encounter Care Teams Systems Manager Relationship Specialty Start Date End Date Agustin Ramos MD [address] [place] [phone] PCP - General 01/27/04 Tom Cruz [address] [place], [place] [address] [address] Referring Internal Medicine 02/10/23 documented as of this encounter
--- OUTSIDE RECORDS SUMMARY | 2024-12-13 17:06 | XMS_ITS | Encounter Summary ---
Author Organization [facility] Address [address] [place] [address] Support Name Relationship Address Phone Wai Quijano Spouse [address], [facility] [address] Ana Gaitan Mother [address] [place] [address] Benny Gaitan Father [address] [place] [address] Care Team Providers Care Shipsmith Name Role Phone Agustin Ramos MD Primary Care Provid er Tom Cruz [facility] [phone] Source Comments In the event this information is protected by the Federal Confidentiality of Alcohol and Drug AbusePatient Records regulations: The Federal rules restrict any use of the information to criminally investigate or prosecute any alcohol or drug abuse patient.[facility] Encounter Details Date Type Department Care Team (Late st Contact Info) Description 09/21/2024 Patient Msg Neurology [address] [place] [address] Provider, [facility] Epilepsy Social History Tobacco Use Types Packs/Day Years Used Date Smoking Tobacco: Never Assessed PHQ-2 Answer Date Recorded PHQ-2 score 2 08/31/2024 Area Deprivation Index Answer Date John rded National Score (1-100), lower number is lower ri sk 80 07/13/2024 State Score (1-10), lower number is lower risk 7 07/13/2024 Data from: https://www.neighborhoodatlas.[facility].edu/. Last address used for calculation [address] [...] Contact Info) Description 01/22/2025 5:00 PM EDT [facility] Neurology [address] [place] [address] Rosita Wick, PhD [address] [place] [address] pnes 01/29/2025 5:00 PM EDT [facility] Neurology [address] [place] [address] Rosita Wick, PhD [address] [place] [address] pnes 02/05/2025 5:00 PM EDT [facility] Neurology [address] [place] [address] Rosita Wick, PhD [address] [place] [address] pnes 02/11/2025 5:00 PM EDT [facility] Neurology [address] [place] [address] Rosita Wick, PhD [address] [place] [address] pnes 02/19/2025 5:00 PM EDT [facility] [address] [place] [address] Rosita Wick, PhD [address] [place] [address] pnes 02/26/2025 5:00 PM EDT [facility] [address] [place] [address] Rosita Wick, PhD [address] [place] [address] pnes 03/05/2025 5:00 PM EDT [facility] [address] [place] [address] Rosita Wick, PhD [address] [place] [address] pnes 03/12/2025 5:00 PM EDT [facility] [address] [place] [address] Rosita Wick, PhD [address] [place] [address] pnes 03/19/2025 5:00 PM EDT [facility] [address] [place] [address] Rosita Wick, PhD [address] [place] [address] pnes 03/26/2025 5:00 PM EDT [facility] [address] [place] [address] Rosita Wick, PhD [address] [place] [address] pnes 04/02/2025 5:00 PM EST [facility] [address] [place] [address] Rosita Wick, PhD [address] [place] [address] pnes 04/09/2025 5:00 PM [facility] [address] [place] [address] Rosita Wick, PhD [address] [place] [address] pnes documented as of this encounter Visit Diagnoses Not on filedocumented in this encounter Care Teams Shipsmith Relationship Specialty Start Date End Date Agustin Ramos MD [address] [place] [phone] PCP - General 01/27/04 Tom Cruz [address] [place], [place] [address] [address] Referring Internal Medicine 02/10/23 documented as of this encounter
--- OUTSIDE RECORDS SUMMARY | 2024-12-13 17:06 | XMS_ITS | Encounter Summary ---
Author Organization [facility] tem Address [id number] [address] [place] [address] Care Team Providers Care Designer And Patternmaker Name Role Phone Tom Cruz DO Primary Care Provider [phone] Encounter Details Date Type Department Care Team ([facility] Contact Info) Description 02/15/2022 Orders Only [facility] Internal Medicine - Family Medicine [address] [place] [phone] External, Scanning Provider Social History Tobacco Use Types Packs/Day Years Used Date Smoking Tobacco: Former Vaping/E-cigarettes Smokeless Tobacco: Never Alcohol Use Standard Drinks/Week Comments Yes 0 (1 standard drink = 0.6 oz pur e alcohol) occasionally PHQ-2 Answer Date Recorded Total Score 9 11/10/2021 Childcare Answer Date Recorded Childcare Unknown 11/09/2018 Employment Answer Date Recorded Employment Unknown 11/09/2018 Purpose - Life Answer Date Recorded Purpose and direction in life Unknown Education Answer Date Recorded What is the highest level of school you have completed or the highest degree you have received? Associate degree: occupational, technical, or vocational program 11/10/2021 Comments No Sex and Gender Information Value [...] Upcoming Encounters Date Type Department Care Team ([facility] Contact Info) Description 05/06/2025 1:15 PM EST Office Visit [facility] Cardiology [address] [place] [phone] Javier Gurrola MD [address] [place] [address] documented as of this encounter Procedures Procedure Name Priority Date/Time Associated Diagnosis Comments POCT BUN, CREAT Routine 02/10/2022 documented in this encounter Results * POCT BUN, Creat (02/10/2022) 02/10/2022 us Scanning Provider External POINT OF CARE TEST OR DERABLES Final Result MANUALLY TRANSCRIBED RESULTS documented in this encounter Visit Diagnoses Not on filedocumented in this encounter Additional Health Concerns Infection Onset Date Last Indicated Resolved Time COVID-19 Rule-Out 04/21/2024 04/21/2024 04/21/2024 8:21 PM EST Respiratory Rule-Out 10/04/2024 10/04/2024 025 1:35 AM EDT Assessment Noted Time PHQ-9 Depression Total Score: 9 11/11/19 22 9:04 AM EDT documented as of this encounter Care Teams Designer And Patternmaker Relationship Specialty Start Date End Date Tom Cruz DO [address] [place] [address] PCP - General Internal Medicine 12/19/22 documented as of this encounter
--- OUTSIDE RECORDS SUMMARY | 2024-12-13 17:06 | XMS_ITS | Encounter Summary ---
Author Organization [facility] [employer] Address [facility]-[id number] [address] [place] [address] Care Team Providers Care Doctor Of Podiatric Medicine Name Role Phone Tom Cruz Primary Care Provider [phone] Encounter Details Date Type Department Care Team (Late st Contact Info) Description 04/20/2023 Orders Only [facility] Internal Medicine - Family Medicine [address] [place] [phone] James Tobar DO [address], [facility] [place] [address] Social History Tobacco Use Types Packs/Day Years [...] often do you attend chur ch or scientology services? Patient declined 04/26/2022 Do you belong to any clubs o r organizations such as anabaptism groups, unions, fraternal or athletic groups, or [...] PHQ-2 Answer Date Recorded Total Score 0 03/21/2023 [facility] of Occupat ional Health - Occupational Stress [...] Recorded Do you need help finding a [facility] career [facility] and/or a training program? No 04/26/2022 Hunger Screening Answer Date Recorded Within the past 12 months we worried whether our food would run out before we got money to buy more. Never True 03/21/2023 Within the past 12 months th e food we bought just didn't last and we didn't have money to get more. Never True 03/21/2023 Purpose - Life Answer Date Recorded I [...] PM EST Office Visit [facility] Card[facility] [address] [place] [phone] Javier Gurrola MD [address] [phone] documented as of this encounter Procedures Procedure Name Priority Date/Time Associated Diagnosis Comments CT ABDOMEN AND PELVIS W CONT Routine 04/16/2023 9:05 AM EST ECG 12-LEAD Routine 04/14/2023 9:07 AM EST documented in this encounter Results * CT abdomen and pelvis with contrast (04/16/2023 9:05 AM EST) Anatomical Region Laterality Modality Body, Abdomen, Body Covera N/A Compu alberto Tomography us Scanning Provider External IMG CT ORDERABLES Fin al Result * ECG 12 lead (04/14/2023 9:07 AM EST) us Scanning Provider External ECG ORDERABLES Final Result MANUALLY TRANSCRIBED RESULTS documented in this encounter Visit Diagnoses Not on filedocumented in this encounter Additional Health Concerns Infection Onset Date Last Indicated Resolved Time COVID-19 Rule-Out 04/21/2024 04/21/2024 04/21/2024 8:21 PM EST Respiratory Rule-Out 10/04/2024 10/04/2024 025 1:35 AM EDT Assessment Noted Time PHQ-9 Depression Total Score: 0 03/21/20 23 1:24 PM EDT documented as of this encounter Care Teams Doctor Of Podiatric Medicine Relationship Specialty Start Date End Date Tom Cruz DO [address] [place] [address] PCP - General Internal Medicine 12/19/22 documented as of this encounter
--- OUTSIDE RECORDS SUMMARY | 2024-12-13 17:06 | XMS_ITS | Encounter Summary ---
Author Organization [facility] Address [address] [place], [place] [id number] Support Name Relationship Address Phone Wai Quijano Spouse [address], Rear [place] [address] Ana Gaitan Mother [address] [place] [address] Benny Gaitan Father [address] [place] [address] Care Team Providers Care Gyroscopic Instrument Mechanic Name Role Phone Agustin Ramos MD Primary Care Provid er Tom Cruz [facility] [phone] Source Comments In the event this information is protected by the Federal Confidentiality of Alcohol and Drug AbusePatient Records regulations: The Federal rules restrict any use of the information to criminally investigate or prosecute any alcohol or drug abuse patient.[facility] Encounter Details Date Type Department Care Team (Latest Contact Info) Description 05/11/2004 Prob Sum Review Provider, Radha Social History Tobacco Use Types Packs/Day Years Used Date Smoking Tobacco: Never Assessed Comments Unknown Sex and Gender Information Value Date Recorded Sex Assigned at Female 07/06/2024 1:13 PM EST Legal Sex Female 10:04 AM EST Gender Identity Female 07/06/2024 1:13 PM EST Sexual Orientation Straight 07/06/2024 1: 13 PM EST documented as of this encounter Plan of Treatment Upcoming Encounters Date Type Department Care Team (Late st Contact Info) Description 01/22/2025 5:00 PM EDT [facility] Neurology [address] [place] [address] Rosita Wick, PhD [address] [place] [address] pnes 01/29/2025 5:00 PM EDT [facility] Neurology [address] [place] [address] Rosita Wick, PhD [address] [place] [address] pnes 02/05/2025 5:00 PM EDT [facility] Neurology [address] [place] [address] Rosita Wick, PhD [address] [place] [address] pnes 02/11/2025 5:00 PM EDT [facility] Neurology [address] [place] [address] Rosita Wick, PhD [address] [place] [address] pnes 02/19/2025 5:00 PM EDT [facility] Neurology [address] [place] [address] Rosita Wick, PhD [address] [place] [address] pnes 02/26/2025 5:00 PM EDT [facility] Neurology [address] [place] [address] Rosita Wick, PhD [address] [place] [address] pnes 03/05/2025 5:00 PM EDT [facility] [address] [place] [address] Rosita Wick, PhD [address] [place] [address] pnes 03/12/2025 5:00 PM EDT [facility] Neu[facility] [address] [place] [address] Rosita Wick, PhD [address] [place] [address] pnes 03/19/2025 5:00 PM EDT [facility] [address] [place] [address] Rosita Wick, PhD [address] [place] [address] pnes 03/26/2025 5:00 PM EDT [facility] [address] [place] [address] Rosita Wick, PhD [address] [place] [address] pnes 04/02/2025 5:00 PM EST [facility] [address] [place] [address] Rosita Wick, PhD [address] [place] [address] pnes 04/09/2025 5:00 PM EST [facility] [address] [place] [address] Rosita Wick, PhD [address] [place] [address] pnes documented as of this encounter Visit Diagnoses Not on filedocumented in this encounter Care Teams Gyroscopic Instrument Mechanic Relationship Specialty Start Date End Date Agustin Ramos MD [address] [place] [phone] PCP - General 01/27/04 Tom Cruz [address] [place] [address] Referring Internal Medicine 02/10/23 documented as of this encounter
--- OUTSIDE RECORDS SUMMARY | 2024-12-13 17:06 | XMS_ITS | Encounter Summary ---
Author Organization [facility] tem Address [facility]-[id number] [address] [place] [address] Care Team Providers Care Farm Laborer Name Role Phone Tom Cruz Primary Care Provider [phone] Encounter Details Date Type Department Care Team (Late st Contact Info) Description 07/18/2024 Orders Only [facility] - Neurophysiology [address] [place] [phone] Magdalena Onofre Social History Tobacco Use Types Packs/Day Years Used Date Smoking Tobacco: Never Smokeless Tobacco: Never Alcohol Use Standard Drinks/Week Comments Yes 0 (1 standard drink = 0.6 oz pur e alcohol) occasionally [employer] Utilities Answer Date Recorded In the past 12 months has [employer] electric, gas, oil, or water company threatened to shut off services in your home? No 06/15/2024 Social Connection and Isolat ion Panel [NHANES] Answer Date Recorded In a typical week, how many times do you talk on the phone with family, friends, or neighbors? More than three times a week 04/26/2022 How often do you get togethe r with friends or relatives? Twice a week 04/26/2022 How often do you attend chur ch or confucianism services? Patient declined 04/26/2022 Do you belong to any clubs o r organizations such as quaker groups, unions, fraternal or athletic groups, or [...] PHQ-2 Answer Date Recorded Total Score 0 06/22/2024 [facility] of Occupat ional Health - Occupational Stress [...] medical appointments or from getting medications? No 05/30 In the past 12 months, has l ack of transportation kept you from meetings, work, or from getting things needed for daily living? No 06/15/2024 Housing Instability Answer Date Recorde d Are you worried or concerned that in the next two months you may not have stable housing that you own, rent or stay in as a part of a household? No 06/15/2024 Childcare Answer Date Recorded Do problems getting child ca re make it difficult for you to work or study? No 04/26/2022 Employment Answer Date Recorded Do you need help finding a [facility] career center and/or a training program? No 04/26/2022 Hunger Screening Answer Date Recorded Within the past 12 months we worried whether our food would run out before we got money to buy more. Never True 07/16/2024 Within the past 12 months th e food we bought just didn't last and we didn't have money to get more. Never True 07/16/2024 Purpose - Life Answer Date Recorded I [...] PM EST Office Visit [facility] [address] [place] [phone] Javier Gurrola MD [address] [place] [address] documented as of this encounter Visit Diagnoses Not on filedocumented in this encounter Additional Health Concerns Infection Onset Date Last Indicated Resolved Time Respiratory Rule-Out 10/04/2024 10/04/2024 025 1:35 AM EDT Assessment Noted Time PHQ-9 Depression Total Score: 0 06/22/19 25 3:24 PM EST A Body Mass Index follow-up plan has been documented for the patient 01/10/2024 4:11 PM EDT documented as of this encounter Care Teams Farm Laborer Relationship Specialty Start Date End Date Tom Cruz DO [address] [place] [address] PCP - General Internal Medicine 12/19/22 documented as of this encounter
--- OUTSIDE RECORDS SUMMARY | 2024-12-13 17:06 | XMS_ITS | Encounter Summary ---
[facility] Address [facility]-[id number] [address] [place] [address] Care Team Providers Care Heel Seam Rubber Name Role Phone Tom Cruz Primary Care Provider [phone] Reason for Visit * Reason Onset Date Comments symptoms 07/17/2024 Encounter Details Date Type Department Care Team (Late st Contact Info) Description 07/17/2024 Telephone [facility] Neurology [address] [place] [address] Iis Patel symptoms Social History Tobacco Use Types Packs/Day Years Used Date Smoking Tobacco: Never Smokeless Tobacco: Never Alcohol Use Standard Drinks/Week Comments Yes 0 (1 standard drink = 0.6 oz pur e alcohol) occasionally [facility] Utilities Answer Date Recorded In the past 12 months has [employer], gas, oil, or water company threatened to [...] often do you attend chur ch or caodaism services? Patient declined 04/26/2022 Do you belong to any clubs o r organizations such as worship groups, unions, fraternal or athletic groups, or [...] Answer Date Recorded Total Score 0 06/22/2024 [facility] of Occupat ional Health - Occupational Stress [...] Recorded Do you need help finding a [facility] career [facility] and/or a training program? No [...] on file documented as of this encounter Miscellaneous Notes * Telephone Encounter - Isi Patel - 07/17/2024 2:41 PM EST Patient [phone] stated that they were treated on 07/16/2024 (3 hours) [facility]- Emergency Department due to seizure like symptoms. Patient stated that they were given migraine cocktail and symptoms subsided. Patient stated that this was the second time patient experienced symptoms and ER gave patient medication for migraine and symptoms went away. Patient is wondering if EEGis needed and if patient is having migraines and not seizure like activity after all. Patient has requested a call back. * Telephone Encounter - Keagan White - 07/17/2024 2:41 PM EST Patient called upset that she never received a call back in regards to previous encounter. Patient stated she was supposed to get a work up for Headaches. Patient stated she went to the ED and was told lack of memory is due to Onset Migraines. Patient stated nothing at home that she is taking is working. Patient is currently a patient of . Last appt: 06/22/24, Next Appt: 10/12/24. EE08/13/24. documented in this encounter Plan of Treatment Upcoming Encounters Date Type Department Care Team (Late st Contact Info) Description 05/06/2025 1:15 PM EST Office Visit [facility] [address] [place] [phone] Javier Gurrola MD [address] [place], [place] [phone] documented as of this encounter Visit Diagnoses [...] documented as of this encounter Care Teams Heel Seam Rubber Relationship Specialty Start Date End Date Tom Cruz DO [address] [place] [address] PCP - General Internal Medicine 12/19/22 documented as of this encounter
--- OUTSIDE RECORDS SUMMARY | 2024-12-13 17:06 | XMS_ITS | Encounter Summary ---
Author Organization [facility] Sys tem Address [facility] [place][id number] [address] [place] [address] Care Team Providers Care Crystallography Teacher Name Role Phone Tom Cruz DO Primary Care Provider [phone] Encounter Details Date Type Department Care Team (Late st Contact Info) Description 01/12/2023 Orders Only [facility] Internal Medicine - Family Medicine [address] [place] [phone] Tom Cruz DO [address] [place] [address] Delayed gastric emptying (Primary Dx) Social History Tobacco Use Types Packs/Day Years [...] How often do you attend chur or episcopalian services? Patient declined 04/26/2022 Do you belong [...] 04/26/2022 PHQ-2 Answer Date Recorded Total Score 6 04/26/2022 [facility] of Occupat ional Health - Occupational [...] PM EST Office Visit [facility] [address] [place] [phone] Javier Gurrola MD [address] [place] [address] documented as of this encounter Results * NM gastric emptying solid (01/25/2023 7:54 AM EDT) Anatomical Region Laterality Modality Nuc Med N/A Nuclear Medicine Tom Cruz DO IMG NM ORDERABLES Final Result documented in this encounter Visit Diagnoses Diagnosis Delayed gastric emptying- Primary Dyspepsia and other specified disorders of function of stomach documented in this encounter Additional Health Concerns Infection Onset Date Last Indicated Resolved Time COVID-19 Rule-Out 04/21/2024 04/21/2024 04/21/2024 8:21 PM EST Respiratory Rule-Out 10/04/2024 10/04/2024 025 1:35 AM EDT Assessment Noted Time PHQ-9 Depression Total Score: 6 04/26/20 22 10:36 AM EST documented as of this encounter Care Teams Crystallography Teacher Relationship Specialty Start Date End Date Tom Cruz DO [address] [place] [address] PCP - General Internal Medicine 12/19/22 documented as of this encounter
--- OUTSIDE RECORDS SUMMARY | 2024-12-13 17:06 | XMS_ITS | Encounter Summary ---
Demographics Address [address] [place] [address] Mobile Phone Email Address Preferred Language Hebrew Marital Status Restoration Affiliation Unknown Race White Ethnic Group Not or Lati no Author Organization [employer] Address [facility]-[id number] [address] [place] [address] Care Team Providers Care Real Time Operator Name Role Phone Tom Cruz Primary Care Provider [phone] Encounter Details Date Type Department Care Team (Late st Contact Info) Description 11/16/2022 Telephone [facility] Women's Services [address] [place] [address] Vicky Puckett RN Social History Tobacco Use Types Packs/Day Years [...] any clubs o r organizations such as yazidi groups, unions, fraternal or athletic groups, or [...] Answer Date Recorded Total Score 6 04/26/2022 [facility] of Occupat ional Health - Occupational Stress [...] PM EST Office Visit [facility] [address] [place] [phone] Javier Gurrola MD [address] [place], [place] [phone] documented as of this encounter Visit Diagnoses Not on filedocumented in this encounter Additional Health Concerns Infection Onset Date Last Indicated Resolved Time COVID-19 Rule-Out 04/21/2024 04/21/2024 04/21/2024 8:21 PM EST Respiratory Rule-Out 10/04/2024 10/04/2024 025 1:35 AM EDT Assessment Noted Time PHQ-9 Depression Total Score: 6 04/26/20 22 10:36 AM EST documented as of this encounter Care Teams Real Time Operator Relationship Specialty Start Date End Date Tom Cruz DO [address] [place] [address] PCP - General Internal Medicine 12/19/22 documented as of this encounter
--- OUTSIDE RECORDS SUMMARY | 2024-12-13 17:06 | XMS_ITS | Encounter Summary ---
Author Organization [employer] Address [id number] [address] [place] [address] Care Team Providers Care Base Loader Name Role Phone Tom Cruz Primary Care Provider [phone] Encounter Details Date Type Department Care Team (Late st Contact Info) Description 04/27/2022 Telephone [facility] - Family Medicine [address] [place] [phone] Yovana Mckay MA Social History Tobacco Use Types Packs/Day Years [...] often do you attend chur ch or pentecostal services? Patient declined 04/26/2022 Do you belong to any clubs o r organizations such as baptism groups, unions, fraternal or athletic groups, or [...] Answer Date Recorded Total Score 6 04/26/2022 [facility] of Occupat ional Health - Occupational Stress [...] received? 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 No / Unsure 04/26/2022 10:41 AM EST documented as of this encounter Miscellaneous Notes * Telephone Encounter - Yovana Mckay MA - 04/27/2022 4:09 PM EST Patient called and said on her work note it said she was in on 04/25, however, she needs it to say 04/26. She asked if you can please change it? documented in this encounter Plan of Treatment Upcoming Encounters Date Type Department Care Team (Late st Contact Info) Description 05/06/2025 1:15 PM EST Office Visit [facility] [address] [place] [phone] Javier Gurrola MD [address] [place] [address] documented as of this encounter Visit Diagnoses Not on filedocumented in this encounter Additional Health Concerns Infection Onset Date Last Indicated Resolved Time COVID-19 Rule-Out 04/21/2024 04/21/2024 04/21/2024 8:21 PM EST Respiratory Rule-Out 10/04/2024 10/04/2024 025 1:35 AM EDT Assessment Noted Time PHQ-9 Depression Total Score: 6 04/26/20 22 10:36 AM EST documented as of this encounter Care Teams Base Loader Relationship Specialty Start Date End Date Tom Cruz DO [address] [place] [address] PCP - General Internal Medicine 12/19/22 documented as of this encounter
--- OUTSIDE RECORDS SUMMARY | 2024-12-13 17:06 | XMS_ITS | Encounter Summary ---
Author Organization [employer] Address [facility]-[id number] [address] [place] [address] Care Team Providers Care Garage Mechanic Name Role Phone Tom Cruz DO Primary Care Provider [phone] Encounter Details Date Type Department Care Team (Late st Contact Info) Description 02/27/2023 Telephone [facility] Internal Medicine - Family Medicine [address] [place] [phone] Tom Cruz DO [address] [place] [address] Social History Tobacco Use Types Packs/Day Years [...] often do you attend chur ch or latter day services? Patient declined 04/26/2022 Do you belong to any clubs o r organizations such as zoroastrianism groups, unions, fraternal or athletic groups, or [...] Answer Date Recorded Total Score 0 01/27/2023 [facility] of Occupat ional Health - Occupational Stress [...] PM EST Office Visit [facility] [address] [place] [address] [facility] [place] [address] Javier Gurrola MD [address] [place] [address] documented as of this encounter Visit Diagnoses Not on filedocumented in this encounter Additional Health Concerns Infection Onset Date Last Indicated Resolved Time COVID-19 Rule-Out 04/21/2024 04/21/2024 04/21/2024 8:21 PM EST Respiratory Rule-Out 10/04/2024 10/04/2024 025 1:35 AM EDT Assessment Noted Time PHQ-9 Depression Total Score: 0 01/28/20 11:04 AM EDT documented as of this encounter Care Teams Garage Mechanic Relationship Specialty Start Date End Date Tom Cruz DO [address] [place] [address] PCP - General Internal Medicine 12/19/22 documented as of this encounter
--- OUTSIDE RECORDS SUMMARY | 2024-12-13 17:06 | XMS_ITS | Encounter Summary ---
Author Organization [facility] Address [facility] [place] [address] Support Name Relationship Address Phone Wai Quijano Spouse [address], [place] [address] Ana Gaitan Mother [address] [place] [address] Benny Gaitan Father [address] [place] [address] Care Team Providers Care Field Coil Winder Name Role Phone Agustin Ramos MD Primary Care Provid er Tom Cruz [facility] [phone] Source Comments In the event this information is protected by the Federal Confidentiality of Alcohol and Drug AbusePatient Records regulations: The Federal rules restrict any use of the information to criminally investigate or prosecute any alcohol or drug abuse patient.[facility] Reason for Visit * Reason Comments Future Appointment [place], [place] Encounter Details Date Type Department Care Team (Late st Contact Info) Description 08/20/2024 Telephone Neurology [facility] [place] [address] Fany Cortez MD [facility] [place] [address] Future Appointment ([place], ANY) Social History Tobacco Use Types Packs/Day Years Used Date Smoking Tobacco: Never Assessed Area Deprivation Index Answer Date John rded National Score (1-100), lower number is lower ri sk 80 07/13/2024 State Score (1-10), lower number is lower risk 7 07/13/2024 Data from: https://www.neighborhoodatlas.medicine.[facility]/. Last address used for calculation [address] [place] [address] 07/13/2024 Comments Unknown Sex and Gender Information Value Date Recorded Sex Assigned at Female 07/06/2024 1:13 PM EST Legal Sex Female 10:04 AM EST Gender Identity Female 07/06/2024 1:13 PM EST Sexual Orientation Straight 07/06/2024 1: 13 PM EST documented as of this encounter Miscellaneous Notes * Telephone Encounter - Jenna Cobb - 08/20/2024 10:48 AM EDT [facility] * Telephone Encounter - Jenna Cobb - 08/20/2024 10:39 AM EDT [facility] Epilepsy [facility] Initial Intake Interview August 20, 2024 10:40 AM Caller: Kavita Relationship to pt: SELF Patient name: Kavita Quijano Age: [age] year old [address]: [address] [place] [id number] (home) Insurance: Payor: ANTHEM / Plan: BLUE CARD PPO OOS / Product Type: PPO / Referred by: Self (word of mouth) Referring to: ANY Reason for Evaluation: further evaluation and treatment Previously evaluated at: [address] [address] Age & date of onset of seizures/spells: Jan 07, 2024 Frequency: Every other day Seizure Type A: PNES Before- Warning (brain fog, aura, severe headache on left side by base of neck) During- Look like sleeping, eyes close, can head everything going on around but can't respond at all, every once in a while can squeeze hand to rely but that is all patient can do Post- sometimes can remember what just happened Duration: 5 minutes -1 hour and 90 minutes Recent injuries (within last 6 months)? No Recent surgeries (within the last 6 weeks)? No Seizure medications Current medications: - Ativan (for panic disorders) Past medications: - N/a Developmental disabilities? No Previous neurosurgery? No Type & Date: N/a Implants (VNS/NeuroPace/shunt/orthodontic hardware/pacemaker)? No Type & Date: N/a Would patient require anaesthesia or sedation? Yes Additional pertinent medical information: N/a Test Yes or No Date Facility EEG Yes 08/17/2024 [facility] Video EEG Yes 08/17/2024 [facility] MRI brain Yes 06/15/2024 [facility] CT brain Yes 08/07/2024 [facility] fMRI brain No PET No Ictal SPECT No DANIEL No [place] No Neuropsych testing No Visual field No Invasive video EEG (brain mapping) No If invasive video-EEG monitoring was performed, request: -- brain maps including any power point presentations -- disks of the study If resection was performed, request: -- operative notes -- surgical pathology reports If patient has had any presurgical or surgical workup, has imaging been requested? No Signed: Jenna Cobb documented in this encounter Plan of Treatment Upcoming Encounters Date Type Department Care Team (Late st Contact Info) Description 01/22/2025 5:00 PM EDT [facility] Neurology [address] [place] [address] Rosita Wick, PhD [address] [place] [address] pnes 01/29/2025 5:00 PM EDT [facility] [address] [place] [address] Rosita Wick, PhD [address] [place] [address] pnes 02/05/2025 5:00 PM EDT [facility] Neurology [address] [place] [address] Rosita Wick, PhD [address] [place] [address] pnes 02/11/2025 5:00 PM EDT [facility] Neu[facility] [address] [place] [address] Rosita Wick, PhD [address] [place] [address] pnes 02/19/2025 5:00 PM EDT [facility] [address] [place] [address] Rosita Wick, PhD [address] [place] [address] pnes 02/26/2025 5:00 PM EDT [facility] [address] [place] [address] Rosita Wick, PhD [address] [place] [address] pnes 03/05/2025 5:00 PM EDT [facility] [address] [place] [address] Rosita Wick, PhD [address] [place] [address] pnes 03/12/2025 5:00 PM EDT [facility] Neurology [address] [place] [address] Rosita Wick, PhD [address] [place] [address] pnes 03/19/2025 5:00 PM EDT [facility] Neurology [address] [place] [address] Rosita Wick, PhD [address] [place] [address] pnes 03/26/2025 5:00 PM EDT [facility] Neurology [address] [place] [address] Rosita Wick, PhD [address] [place] [address] pnes 04/02/2025 5:00 PM EST [facility] [address] [place] [address] Rosita Wick, PhD [address] [place] [address] pnes 04/09/2025 5:00 PM EST [facility] Neurology [address] [place] [address] Rosita Wick, PhD [address] [place] [address] pnes documented as of this encounter Visit Diagnoses Not on filedocumented in this encounter Care Teams Field Coil Winder Relationship Specialty Start Date End Date Agustin Ramos MD [address] [place] [phone] PCP - General 01/27/04 Tom Cruz [address] [place] [address] Referring Internal Medicine 02/10/23 documented as of this encounter
--- OUTSIDE RECORDS SUMMARY | 2024-12-13 17:06 | XMS_ITS | Encounter Summary ---
Author Organization [employer] Address [id number] [address] [place] [address] Care Team Providers Care Meal Cooker Name Role Phone Tom Cruz Primary Care Provider [phone] Encounter Details Date Type Department Care Team (Late st Contact Info) Description 12/04/2024 Telephone [facility] Internal Medicine - Family Medicine [address] [place] [phone] Jeremie Turner CMA Social History Tobacco Use Types Packs/Day Years Used Date Smoking Tobacco: Never Smokeless Tobacco: Never Alcohol Use Standard Drinks/Week Comments Not Currently 0 (1 standard drink = 0.6 oz pur e alcohol) [facility] Utilities Answer Date Recorded In the past 12 months has [employer] electric, gas, oil, or water company [...] often do you attend chur ch or pentecostalism services? Patient declined 04/26/2022 Do you belong [...] Answer Date Recorded Total Score 0 12/05/2024 [facility] - Occupational [...] Recorded Do you need help finding a [facility] career center and/or a training program? No 04/26/2022 Hunger Screening Answer Date Recorded Within the past 12 months we worried whether our food would run out before we got money to buy more. Never True 12/05/2024 Within the past 12 months th food we bought just didn't last and [...] encounter Miscellaneous Notes * Telephone Encounter - Jeremie Turner CMA - 12/04/2024 9:27 AM EDT Pt called and states the last 6 days she has had numbness and tingling and it feels like it is at the base of the neck and travels down right side. I see no openings this week. Where would like to put her? * Telephone Encounter - Tom Cruz DO - 12/04/2024 9:27 AM EDT Message noted. You can put her in on documented in this encounter Plan of Treatment Upcoming Encounters Date Type Department Care Team (Late st Contact Info) Description 05/06/2025 1:15 PM EST Office Visit [facility] Cardiology [address] [place] [phone] Javier Gurrola MD [address] [place] [address] documented as of this encounter Goals Goal Patient Goal Type Associated Problems Recent Progress Patient-Stated? Author Return home General Yes Anusha Guevara, RN Note: Evaluation of progress towards goal: Plan to return home. documented as of this encounter Visit Diagnoses Not on filedocumented in this encounter Additional Health Concerns Assessment Noted Time PHQ-9 Depression Total Score: 0 10/13/19 25 8:50 AM EDT A Body Mass Index follow-up plan has been documented for the patient 01/10/2024 4:11 PM EDT documented as of this encounter Care Teams Meal Cooker Relationship Specialty Start Date End Date Tom Cruz DO [address] [place] [address] PCP - General Internal Medicine 12/19/22 documented as of this encounter
--- OUTSIDE RECORDS SUMMARY | 2024-12-13 17:06 | XMS_ITS | Encounter Summary ---
Author Organization [facility] Address [id number] [address] [place] [address] Care Team Providers Care Building Equipment Inspector Name Role Phone Tom Cruz DO Primary Care Provider [phone] Encounter Details Date Type Department Care Team (Late st Contact Info) Description 04/04/2023 Orders Only [facility] Internal Medicine - Family Medicine [address] [place] [phone] Tom Cruz DO [address] [place] [address] Irritable bowel syndrome with constipation Social History Tobacco Use Types Packs/Day Years [...] How often do you attend chur or samaritan services? Patient declined 04/26/2022 Do you belong to any clubs o r organizations such as moravian groups, unions, fraternal or athletic groups, or [...] Answer Date Recorded Total Score 0 03/21/2023 [facility] Occupat ional Health - [...] Recorded Do you need help finding a ocal career center and/or a training program? [...] PM EST Office Visit [facility]iology [address] [place] [phone] Javier Gurrola MD [address] [place], [place] [phone] documented as of this encounter Visit Diagnoses Diagnosis Irritable bowel syndrome with constipation Irritable bowel syndrome documented in this encounter Additional Health Concerns Infection Onset Date Last Indicated Resolved Time COVID-19 Rule-Out 04/21/2024 04/21/2024 04/21/2024 8:21 PM EST Respiratory Rule-Out 10/04/2024 10/04/2024 025 1:35 AM EDT Assessment Noted Time PHQ-9 Depression Total Score: 0 03/21/20 1:24 PM EDT documented as of this encounter Care Teams Building Equipment Inspector Relationship Specialty Start Date End Date Tom Cruz DO [address] [place] [address] PCP - General Internal Medicine 12/19/22 documented as of this encounter
--- OUTSIDE RECORDS SUMMARY | 2024-12-13 17:06 | XMS_ITS | Encounter Summary ---
Author Organization [facility] Address [id number] [address] [place] [address] Care Team Providers Care Triage Nurse Name Role Phone Tom Cruz DO Primary Care Provider [phone] Encounter Details Date Type Department Care Team (Late st Contact Info) Description 03/02/2023 Orders Only [facility] Internal Medicine - Family Medicine [address] [place] [phone] Tom Cruz DO [address] [place] [address] Social History Tobacco Use Types Packs/Day Years [...] often do you attend chur ch or zoroastrian services? Patient declined 04/26/2022 Do you belong to any clubs o r organizations such as rastafarian groups, unions, fraternal or athletic groups, or [...] Answer Date Recorded Total Score 0 01/27/2023 [facility] Occupat ional Health - Occupational Stress [...] PM EST Office Visit [facility] [address] [place] [phone] Javier Gurrola MD [address] [place] [phone] documented as of this encounter Procedures Procedure Name Priority Date/Time Associated Diagnosis Comments CT ABDOMEN AND PELVIS WO CONT Routine 02/27/2023 10:18 AM EDT XR ABDOMEN AP 1 VW Routine 02/26/2023 10:19 AM EDT documented in this encounter Results * CT abdomen and pelvis without contrast (02/27/2023 10:18 AM EDT) Anatomical Region Laterality Modality Body, Abdomen, Body Covera N/A Compu alberto Tomography us Scanning Provider External IMG CT ORDERABLES Fin al Result * X-ray abdomen ap 1 view (02/26/2023 10:19 AM EDT) Anatomical Region Laterality Modality Body, Abdomen N/A Computed Radiogr aphy us Scanning Provider External IMG DIAGNOSTIC IMAGIN G ORDERABLES Final Result documented in this encounter Visit Diagnoses Not on filedocumented in this encounter Additional Health Concerns Infection Onset Date Last Indicated Resolved Time COVID-19 Rule-Out 04/21/2024 04/21/2024 04/21/2024 8:21 PM EST Respiratory Rule-Out 10/04/2024 10/04/2024 025 1:35 AM EDT Assessment Noted Time PHQ-9 Depression Total Score: 0 01/28/20 11:04 AM EDT documented as of this encounter Care Teams Triage Nurse Relationship Specialty Start Date End Date Tom Cruz DO [address] [place] [address] PCP - General Internal Medicine 12/19/22 documented as of this encounter
--- OUTSIDE RECORDS SUMMARY | 2024-12-13 17:06 | XMS_ITS | Encounter Summary ---
Author Organization [facility] Address [address] [place] [address] Support Name Relationship Address Phone Wai Quijano Spouse [address] 05[address], [place] [address] Ana Gaitan Mother [address] [place] [address] Benny Gaitan Father [address] [place] [address] Care Team Providers Care Brass Cleaner Name Role Phone Agustin Ramos MD Primary Care Provid er Tom Cruz [facility] [phone] Source Comments In the event this information is protected by the Federal Confidentiality of Alcohol and Drug AbusePatient Records regulations: The Federal rules restrict any use of the information to criminally investigate or prosecute any alcohol or drug abuse patient.[facility] Encounter Details Date Type Department Care Team (Late st Contact Info) Description 09/03/2024 Patient Msg HOSP MAIN M060 [address] [place], [place] [phone] Provider, [facility] scheduling Social History Tobacco Use Types Packs/Day Years Used Date Smoking Tobacco: Never Assessed PHQ-2 Answer Date Recorded PHQ-2 score 2 08/31/2024 Area Deprivation Index Answer Date John rded National Score (1-100), lower number is lower ri 80 07/13/2024 State Score (1-10), lower number is lower risk 7 07/13/2024 Data from: https://www.neighborhoodatlas.medicine.[facility].edu/. Last address used for calculation [address] [...] Contact Info) Description 01/22/2025 5:00 PM EDT [facility] Neurology [address] [place] [address] Rosita Wick, PhD [address] [place] [address] pnes 01/29/2025 5:00 PM EDT [facility] Neurology [address] [place] [address] Rosita Wick, PhD [address] [place] [address] pnes 02/05/2025 5:00 PM EDT [facility] Neurology [address] [place] [address] Rosita Wick, PhD [address] [place] [address] pnes 02/11/2025 5:00 PM EDT [facility] Neurology [address] [place] [address] Rosita Wick, PhD [address] [place] [address] pnes 02/19/2025 5:00 PM EDT [facility] [address] [place] [address] Rosita Wick, PhD [address] [place] [address] pnes 02/26/2025 5:00 PM EDT [facility] [address] [place] [address] Rosita Wick, PhD [address] [place] [address] pnes 03/05/2025 5:00 PM EDT [facility] [address] [place] [address] Rosita Wick, PhD [address] [place] [address] pnes 03/12/2025 5:00 PM EDT [facility] [address] [place] [address] Rosita Wick, PhD [address] [place] [address] pnes 03/19/2025 5:00 PM EDT [facility] [address] [place] [address] Rosita Wikc, PhD [address] [place] [address] pnes 03/26/2025 5:00 PM EDT [facility] [address] [place] [address] Rosita Wick, PhD [address] [place] [address] pnes 04/02/2025 5:00 PM EST [facility] [address] [place] [address] Rosita Wick, PhD [address] [place] [address] pnes 04/09/2025 5:00 PM [facility] Neurology [address] [place] [address] Rosita Wick, PhD [address] [place] [address] pnes documented as of this encounter Visit Diagnoses Not on filedocumented in this encounter Care Teams Brass Cleaner Relationship Specialty Start Date End Date Agustin Ramos MD [address] [place] [phone] PCP - General 01/27/04 Tom Cruz [address] [place], [place] [address] [place] [address] Referring Internal Medicine 02/10/23 documented as of this encounter
--- OUTSIDE RECORDS SUMMARY | 2024-12-13 17:06 | XMS_ITS | Encounter Summary ---
Author Organization [facility] Address [address] [place] [address] Support Name Relationship Address Phone Wai Quijano Spouse 9[address] 05[address], [place] [address] Ana Gaitan Mother [address] [place] [address] Benny Gaitan Father [address] [place] [address] Care Team Providers Care Salesperson Driver Name Role Phone Agustin Ramos MD Primary Care Provid er Tom Cruz [facility] [phone] Source Comments In the event this information is protected by the Federal Confidentiality of Alcohol and Drug AbusePatient Records regulations: The Federal rules restrict any use of the information to criminally investigate or prosecute any alcohol or drug abuse patient.[facility] Encounter Details Date Type Department Care Team (Late st Contact Info) Description 10/02/2024 Results Follow-Up Neurology [address] [place] [address] Michelle Navarrete, GURJIT.GUEST RELATIONS ASSOCIATE [address] [place] [address] Social History Tobacco Use Types Packs/Day Years Used Date Smoking Tobacco: Never Assessed PHQ-2 Answer Date Recorded PHQ-2 score 3 10/15/2024 Area Deprivation Index Answer Date John rded National Score (1-100), lower number is lower ri sk 80 07/13/2024 State Score (1-10), lower number is lower risk 7 07/13/2024 Data from: https://www.neighborhoodatlas.medicine.[facility]/. Last address used for calculation [address] [...] Contact Info) Description 01/22/2025 5:00 PM EDT [facility] Neurology [address] [place] [address] Rosita Wick, PhD [address] [place] [address] pnes 01/29/2025 5:00 PM EDT [facility] Neurology [address] [place] [address] Rosita Wick, PhD [address] [place], [place] [phone] pnes 02/05/2025 5:00 PM EDT [facility] Neurology [address] [place] [address] Rosita Wick, PhD [address] [place] [address] pnes 02/11/2025 5:00 PM EDT [facility] Neurology [address] [place] [address] Rosita Wick, PhD [address] [place] [address] pnes 02/19/2025 5:00 PM EDT [facility] [address] [place] [address] Rosita Wick, PhD [address] [place] [address] pnes 02/26/2025 5:00 PM EDT [facility] [address] [place] [address] Rosita Wick, PhD [address] [place] [address] pnes 03/05/2025 5:00 PM EDT [facility] Neurology [address] [place] [address] Rosita Wick, PhD [address] [place] [address] pnes 03/12/2025 5:00 PM EDT [facility] Neurology [address] [place] [address] Rosita Wick, PhD [address] [place] [address] pnes 03/19/2025 5:00 PM EDT [facility] Neurology [address] [place] [address] Rosita Wick, PhD [address] [place] [address] pnes 03/26/2025 5:00 PM EDT [facility] [address] [place] [address] Rosita Wick, PhD [address] [place] [address] pnes 04/02/2025 5:00 PM EST [facility] [address] [place] [address] Rosita Wick, PhD [address] [place] [address] pnes 04/09/2025 5:00 PM EST [facility] Neurology [address] [place] [address] Rosita Wick, PhD [address] [place] [address] pnes documented as of this encounter Visit Diagnoses Not on filedocumented in this encounter Care Teams Salesperson Driver Relationship Specialty Start Date End Date Agustin Ramos MD [address] [place] [phone] PCP - General 01/27/04 Tom Cruz [address] [place] [address] Referring Internal Medicine 02/10/23 documented as of this encounter
--- OUTSIDE RECORDS SUMMARY | 2024-12-13 17:06 | XMS_ITS | Encounter Summary ---
Author Organization [employer] s tem Address [id number] [address] [place] [address] Care Team Providers Care Card Doffer Name Role Phone Tom Cruz DO Primary Care Provider [phone] Encounter Details Date Type Department Care Team (Late st Contact Info) Description 04/04/2023 Telephone [facility] Internal Medicine - Family Medicine [address] [place] [phone] Tom Cruz DO [address] [place] [address] Social History Tobacco Use Types Packs/Day Years [...] often do you attend chur ch or voodoo services? Patient declined 04/26/2022 Do you belong to any clubs o r organizations such as adventist groups, unions, fraternal or athletic groups, or [...] Answer Date Recorded Total Score 0 03/21/2023 [facility] of Occupat ional Health - Occupational [...] Recorded Do you need help finding a [employer] career center and/or a training program? No [...] encounter Miscellaneous Notes * Telephone Encounter - Amy Peterson - 04/04/2023 3:34 PM EST PATIENT WANTED TO CALL AND LET YOU KNOW THAT THE MEDICATION HIS HELPING SHE HAS AN APPOINTMENT WITHGI IN MARCH BUT SHE SAID THAT IT IS HELPING AND SHE IS SEEING IMPROVEMENTS, SHE HAS ENOUGH FOR TOMORROW BUT WANTED TO KNOW IF YOU WANTED TO KEEP HER ON IT * Telephone Encounter - Tom Cruz DO - 04/04/2023 3:34 PM EST Yes, I think she should stay on it if it is helping. I will send an Rx to [facility], but will probably need to go through pre-authorization. In the meantime, she can get a few more samples if she wishes. Trulance 3 mg daily * Telephone Encounter - Amy Peterson - 04/04/2023 3:34 PM EST Talked to the patient and she said that's okay and wants to know if she can come by today and get samples * Telephone Encounter - Tom Cruz DO - 04/04/2023 3:34 PM EST Yes, but check and make sure some are available * Telephone Encounter - Ondina Thorpe CMA - 04/04/2023 3:34 PM EST Can someone call the rep for the Trulance because we have none. * Telephone Encounter - Pam Bolivar - 04/04/2023 3:34 PM EST I spoke with Pharma Rep and she did drop off samples but said with Pt's Medicaid ins she must try Linzess and Amitiza and fail before Medicaid will approve the Trulance. * Telephone Encounter - Tom Cruz DO - 04/04/2023 3:34 PM EST We do have samples of Linzess. We can give Kavita some samples of Linzess 145 mg caps to take one daily. We can give her enough for2 weeks as a trial. * Telephone Encounter - Ondina Thorpe CMA - 04/04/2023 3:34 PM EST Pt will be in Tuesday so Can we get samples ready for her to pickle sorter. * Telephone Encounter - Ondina Thorpe CMA - 04/04/2023 3:34 PM EST I am so sorry Mar went back and we do not have the strength needed. Would you like to give her trulance until we get more? * Telephone Encounter - Tom Cruz DO - 04/04/2023 3:34 PM EST What strength of Linzess do we have? * Telephone Encounter - Ondina Thorpe CMA - 04/04/2023 3:34 PM EST There is 72mcg and 290mcg * Telephone Encounter - Tom Cruz DO - 04/04/2023 3:34 PM EST Then, we can give her the Linzess 72 mg caps, and have her take 2 at a time. * Telephone Encounter - Ondina Thorpe CMA - 04/04/2023 3:34 PM EST Mar got samples ready for patient. documented in this encounter Plan of Treatment Upcoming Encounters Date Type Department Care Team (Late st Contact Info) Description 05/06/2025 1:15 PM EST Office Visit [facility] [address] [place] [phone] Javier Gurrola MD [facility] [place] [phone] documented as of this encounter Visit Diagnoses Not on filedocumented in this encounter Additional Health Concerns Infection Onset Date Last Indicated Resolved Time COVID-19 Rule-Out 04/21/2024 04/21/2024 04/21/2024 8:21 PM EST Respiratory Rule-Out 10/04/2024 10/04/2024 025 1:35 AM EDT Assessment Noted Time PHQ-9 Depression Total Score: 0 03/21/20 1:24 PM EDT documented as of this encounter Care Teams Card Doffer Relationship Specialty Start Date End Date Tom Cruz DO [address] [place] [address] PCP - General Internal Medicine 12/19/22 documented as of this encounter
--- OUTSIDE RECORDS SUMMARY | 2024-12-13 17:06 | XMS_ITS | Encounter Summary ---
Author Organization [facility] Address [address] [place] [address] Support Name Relationship Address Phone Wai Quijano Spouse [address], [place] [address] Ana Gaitan Mother [address] [place] [address] Benny Gatian Father [address] [place] [address] Care Team Providers Care Wire Weaving Loom Setter Name Role Phone Agustin Ramos MD Primary Care Provid er Tom Cruz [facility] [phone] Source Comments In the event this information is protected by the Federal Confidentiality of Alcohol and Drug AbusePatient Records regulations: The Federal rules restrict any use of the information to criminally investigate or prosecute any alcohol or drug abuse patient.[facility] Encounter Details Date Type Department Care Team (Late st Contact Info) Description 09/12/2024 Patient Msg Neurology [address] [place] [address] Provider, Ccf Consult Order Social History Tobacco Use Types Packs/Day Years Used Date Smoking Tobacco: Never Assessed PHQ-2 Answer Date Recorded PHQ-2 score 2 08/31/2024 Area Deprivation Index Answer Date John rded National Score (1-100), lower number is lower ri sk 80 07/13/2024 State Score (1-10), lower number is lower risk 7 07/13/2024 Data from: https://www.neighborhoodatlas.medicine.[facility].edu/. Last address used for calculation [address] [...] Description 01/22/2025 5:00 PM EDT [facility] Neurology [address] [place] [address] Rosita Wick, PhD [address] [place] [address] pnes 01/29/2025 5:00 PM EDT [facility] Neurology [address] [place] [address] Rosita Wick, PhD [address] [place] [address] pnes 02/05/2025 5:00 PM EDT [facility] Neurology [address] [place] [address] Rosita Wick, PhD [address] [place] [address] pnes 02/11/2025 5:00 PM EDT [facility] Neurology [address] [place] [address] Rosita Wick, PhD [address] [place] [address] pnes 02/19/2025 5:00 PM EDT [facility] [address] [place] [address] Rosita Wick, PhD [address] [place] [address] pnes 02/26/2025 5:00 PM EDT [facility] [address] [place] [address] Rosita Wick, PhD [address] [place] [address] pnes 03/05/2025 5:00 PM EDT [facility] [address] [place] [address] Rosita Wick, PhD [address] [place] [address] pnes 03/12/2025 5:00 PM EDT [facility] [address] [place] [address] Rosita Wcik, PhD [address] [place] [address] pnes 03/19/2025 5:00 PM EDT [facility] [address] [place] [address] Rosita Wick, PhD [address] [place] [address] pnes 03/26/2025 5:00 PM EDT [facility] [address] [place] [address] Rosita Wick, PhD [address] [place] [address] pnes 04/02/2025 5:00 PM EST [facility] [address] [place] [address] Rosita Wick, PhD [address] [place] [address] pnes 04/09/2025 5:00 PM [facility] Neurology [address] [place] [address] Rosita Wick, PhD [address] [place] [address] pnes documented as of this encounter Visit Diagnoses Not on filedocumented in this encounter Care Teams Wire Weaving Loom Setter Relationship Specialty Start Date End Date Agustin Ramos MD [address] [place] [phone] PCP - General 01/27/04 Tom Cruz [address] [place] [address] Referring Internal Medicine 02/10/23 documented as of this encounter
--- OUTSIDE RECORDS SUMMARY | 2024-12-13 17:06 | XMS_ITS | Encounter Summary ---
Author Organization [employer] s tem Address [id number] [address] [place] [address] Care Team Providers Care Transit Mixer Operator Name Role Phone Tom Cruz Primary Care Provider Encounter Details Date Type Department Care Team (Late st Contact Info) Description 12/29/2022 Telephone [facility] Internal [facility] - Family Medicine [address] [place] [phone] Ondina Thorpe CMA Social History Tobacco Use Types Packs/Day [...] How often do you attend chur or temple services? Patient declined 04/26/2022 Do you belong to any clubs o r organizations such as restorationist groups, unions, fraternal or athletic groups, or [...] Answer Date Recorded Total Score 6 04/26/2022 [facility] of Occupat ional Health - Occupational Stress [...] encounter Miscellaneous Notes * Telephone Encounter - Ondina Thorpe CMA - 12/29/2022 2:07 PM EDT Patient called stating she can not even hold down liquids. She has not done the suppositories due to she don't know if this will sedate her to the point she does not wake up for her daughter. What do you suggest she do? * Telephone Encounter - Tom Cruz DO - 12/29/2022 2:07 PM EDT She should try taking the suppository when someone is around who can watch the child. * Telephone Encounter - Ondina Thorpe CMA - 12/29/2022 2:07 PM EDT Notifed documented in this encounter Plan of Treatment Upcoming Encounters Date Type Department Care Team (Late st Contact Info) Description 05/06/2025 1:15 PM EST Office Visit [facility] [address] [place] [phone] Javier Gurrola MD [address] [place] [phone] documented as of this encounter Visit Diagnoses Not on filedocumented in this encounter Additional Health Concerns Infection Onset Date Last Indicated Resolved Time COVID-19 Rule-Out 04/21/2024 04/21/2024 04/21/2024 8:21 PM EST Respiratory Rule-Out 10/04/2024 10/04/2024 025 1:35 AM EDT Assessment Noted Time PHQ-9 Depression Total Score: 6 04/26/20 22 10:36 AM EST documented as of this encounter Care Teams Transit Mixer Operator Relationship Specialty Start Date End Date Tom Cruz DO [address] [place] [address] PCP - General Internal Medicine 12/19/22 documented as of this encounter
--- OUTSIDE RECORDS SUMMARY | 2024-12-13 17:06 | XMS_ITS | Encounter Summary ---
Author Organization [facility] tem Address [id number] [address] [place] [address] Care Team Providers Care Iap Displays Analyst Name Role Phone Tom Cruz Primary Care Provider [phone] Encounter Details Date Type Department Care Team (Late st Contact Info) Description 08/02/2024 Orders Only [facility] - Neurophysiology [address] [place] [phone] Magdalena Onofre Social History Tobacco Use Types Packs/Day Years Used Date Smoking Tobacco: Never Smokeless Tobacco: Never Alcohol Use Standard Drinks/Week Comments Yes 0 (1 standard drink = 0.6 oz pur e alcohol) occasionally [employer] Utilities Answer Date Recorded In the past 12 months has [employer] electric, gas, oil, or water company threatened [...] any clubs o r organizations such as latter day groups, unions, fraternal or athletic groups, or [...] Answer Date Recorded Total Score 0 06/22/2024 [facility] of Occupat ional Health - Occupational Stress [...] Recorded Do you need help finding a [facility] career center and/or a training program? No 04/26/2022 Hunger Screening Answer Date Recorded Within the past 12 months we worried whether our food would run out before we got money to buy more. Never True 08/04/2024 Within the past 12 months th e food we bought just didn't last and we didn't have money to get more. Never True 08/04/2024 Purpose - Life Answer Date Recorded I [...] PM EST Office Visit [facility] [address] [place] [phone] Javier Gurrola MD [address] [place] [address] documented as of this encounter Visit Diagnoses [...] documented as of this encounter Care Teams Iap Displays Analyst Relationship Specialty Start Date End Date Tom Cruz DO [address] [place] [address] PCP - General Internal Medicine 12/19/22 documented as of this encounter
--- OUTSIDE RECORDS SUMMARY | 2024-12-13 17:07 | XMS_ITS | Encounter Summary ---
Author Organization [facility] [employer] s tem Address [id number] [address] [place] [address] Care Team Providers Care Pickle Processor Name Role Phone Tom Cruz DO Primary Care Provider [phone] Encounter Details Date Type Department Care Team (Late st Contact Info) Description 07/09/2024 Orders Only [facility] Internal Medicine - Family Medicine [address] [place] [phone] Tom Cruz DO [address] [place] [address] Social History Tobacco Use Types Packs/Day Years Used Date Smoking Tobacco: Never Smokeless Tobacco: Never Alcohol Use Standard Drinks/Week Comments Yes 0 (1 standard drink = 0.6 oz pur e alcohol) occasionally [employer] Utilities Answer Date Recorded In the past 12 months has [employer], gas, oil, or water [employer] threatened to shut off services in your [...] week 04/26/2022 How often do you attend [facility] or adventism services? Patient declined 04/26/2022 Do you belong to any clubs o r organizations such as oriental orthodox groups, unions, fraternal or athletic groups, or [...] Answer Date Recorded Total Score 0 06/22/2024 [facility] of Occupat ional Health - Occupational [...] Recorded Do you need help finding a [facility] career center and/or a training program? No 04/26/2022 Hunger Screening Answer Date Recorded Within the past 12 months we worried whether our food would run out before we got money to buy more. Never True 07/13/2024 Within the past 12 months th e food we bought just didn't last and we didn't have money to get more. Never True 07/13/2024 Purpose - Life Answer Date Recorded I [...] EST Office Visit [facility] [address] [place] [phone] Javier Gurrola MD [facility] [place], [place] [phone] documented as of this encounter Visit Diagnoses [...] documented as of this encounter Care Teams Pickle Processor Relationship Specialty Start Date End Date Tom Cruz DO [address] [place] [address] PCP - General Internal Medicine 12/19/22 documented as of this encounter
--- OUTSIDE RECORDS SUMMARY | 2024-12-13 17:07 | XMS_ITS | Encounter Summary ---
Author Organization [employer] s tem Address [id number] [address] [place] [address] Care Team Providers Care Financial Aid Counselor Name Role Phone Tom Cruz Primary Care Provider [phone] Encounter Details Date Type Department Care Team (Late st Contact Info) Description 11/21/2023 Telephone [facility] Internal Medicine - Family Medicine [address] [place] [phone] Jeremie Turner CMA Social History Tobacco Use [...] often do you attend chur ch or baptist services? Patient declined 04/26/2022 Do you belong to any clubs o r organizations such as uatsdin groups, unions, fraternal or athletic groups, or [...] PHQ-2 Answer Date Recorded Total Score 0 11/21/2023 [facility] of Occupat ional Health - Occupational Stress [...] got money to buy more. Never True 11/21/2023 Within the past 12 months th e food we bought just didn't last and we didn't have money to get more. Never True 11/21/2023 Purpose - Life Answer Date Recorded I [...] Telephone Encounter - Jeremie Turner CMA - 11/21/2023 3:37 PM EDT Pt called and wish for us to send a request for medical records to [facility] for her apt with Dr Cruz today. documented in this encounter Plan of Treatment Upcoming Encounters Date Type Department Care Team (Late st Contact Info) Description 05/06/2025 1:15 PM EST Office Visit [facility] [address] [place] [phone] Javier Gurrola MD [address] [place] [phone] documented as of this encounter Visit Diagnoses Not on filedocumented in this encounter Additional Health Concerns Infection Onset Date Last Indicated Resolved Time COVID-19 Rule-Out 04/21/2024 04/21/2024 04/21/2024 8:21 PM EST Respiratory Rule-Out 10/04/2024 10/04/2024 025 1:35 AM EDT Assessment Noted Time PHQ-9 Depression Total Score: 0 11/21/19 4:32 PM EDT documented as of this encounter Care Teams Financial Aid Counselor Relationship Specialty Start Date End Date Tom Cruz DO [address] [place] [address] PCP - General Internal Medicine 12/19/22 documented as of this encounter
--- OUTSIDE RECORDS SUMMARY | 2024-12-13 17:07 | XMS_ITS | Encounter Summary ---
Demographics Address [address] [place] [address] Mobile Phone Email Address Preferred Language Lithuanian Marital Status Denominational Affiliation Unknown Race White Ethnic Group Not or Lati no Author Organization [facility] Address [facility] [id number] [address] [place] [address] Care Team Providers Care Curb Setter Name Role Phone Tom Cruz Primary Care Provider [phone] Encounter Details Date Type Department Care Team (Late st Contact Info) Description 12/30/2023 Orders Only [facility] Internal Medicine - Family Medicine [address] [place] [phone] Mar Perez CMA CALDWELL (nonalcoholic steatohepatitis) Social History Tobacco Use Types Packs/Day Years [...] often do you attend chur ch or confucianist services? Patient declined 04/26/2022 Do you belong to any clubs o r organizations such as roman catholic groups, unions, fraternal or athletic groups, or [...] PHQ-2 Answer Date Recorded Total Score 0 12/06/2023 [facility] of Occupat ional Health - Occupational [...] Do you need help finding a l al career center and/or a training program? No 04/26/2022 Hunger Screening Answer Date Recorded Within the past 12 months we worried whether our food would run out before we got money to buy more. Never True 12/06/2023 Within the past 12 months th e food we bought just didn't last and we didn't have money to get more. Never True 12/06/2023 Purpose - Life Answer Date Recorded I [...] PM EST Office Visit [facility] [address] [place] [phone] Javier Gurrola MD [address] [place] [address] documented as of this encounter Procedures Procedure Name Priority Date/Time Associated Diagnosis Comments FIBROSCAN Routine 12/30/2023 12:28 PM EDT CALDWELL (nonalcoholic steatohepatitis) documented in this encounter Results * Fibroscan (12/30/2023 12:28 PM EDT) Tom Cruz DO GI PROCEDURE ORDERABLES Final Re sult MANUALLY TRANSCRIBED RESULTS documented in this encounter Visit Diagnoses Diagnosis CALDWELL (nonalcoholic steatohepatitis) Other chronic nonalcoholic liver disease documented in this encounter Additional Health Concerns Infection Onset Date Last Indicated Resolved Time COVID-19 Rule-Out 04/21/2024 04/21/2024 04/21/2024 8:21 PM EST Respiratory Rule-Out 10/04/2024 10/04/2024 025 1:35 AM EDT Assessment Noted Time PHQ-9 Depression Total Score: 0 12/06/19 24 8:37 AM EDT documented as of this encounter Care Teams Curb Setter Relationship Specialty Start Date End Date Tom Cruz DO [address] [place] [address] PCP - General Internal Medicine 12/19/22 documented as of this encounter
--- OUTSIDE RECORDS SUMMARY | 2024-12-13 17:07 | XMS_ITS | Encounter Summary ---
Author Organization [facility] Address [id number] [address] [place] [address] Care Team Providers Care Fire Prevention Officer Name Role Phone Tom Cruz Primary Care Provider [phone] Reason for Visit * Reason Onset Date Comments medical concern 09/07/2024 Encounter Details Date Type Department Care Team (Late st Contact Info) Description 09/07/2024 [facility] [address] [facility] [address] [place] [address] Milli Silva medical concern Social History Tobacco Use Types Packs/Day Years Used Date Smoking Tobacco: Never Smokeless Tobacco: Never Alcohol Use Standard Drinks/Week Comments Not Currently 0 (1 standard drink = 0.6 oz pur e alcohol) [facility] Utilities Answer Date Recorded In the past 12 months has [employer], gas, oil, or water [employer] threatened to shut off services in your [...] How often do you attend chur or taoism services? Patient declined 04/26/2022 Do you belong to any clubs o r organizations such as sabianist groups, unions, fraternal or athletic groups, or [...] PHQ-2 Answer Date Recorded Total Score 0 08/13/2024 [facility] of Occupat ional Health - [...] got money to buy more. Never True 08/13/2024 Within the past 12 months th e food we bought just didn't last and we didn't have money to get more. Never True 08/13/2024 Purpose - Life Answer Date Recorded I [...] encounter Miscellaneous Notes * Telephone Encounter - Milli Adarsh Silva - 09/07/2024 3:11 PM EDT Received a call from patient regarding sever memory issues. Patient stated she has been forgetting things a lot more then usual and she is really concerned. Patient is scheduled for a follow up on 10.12.24 at with provider but she is requesting to have clinical staff return her call to discuss her concerns further. Please advise documented in this encounter Plan of Treatment Upcoming Encounters Date Type Department Care Team (Late st Contact Info) Description 05/06/2025 1:15 PM EST Office Visit [facility] [address] [place] [phone] Javier Gurrola MD [address] [place] [address] documented as of this encounter [...] Noted Time PHQ-9 Depression Total Score: 0 08/14/19 25 4:45 PM EDT A Body Mass Index follow-up plan has been documented for the patient 01/10/2024 4:11 PM EDT documented as of this encounter Care Teams Fire Prevention Officer Relationship Specialty Start Date End Date Tom Cruz DO [address] [place] [address] PCP - General Internal Medicine 12/19/22 documented as of this encounter
--- OUTSIDE RECORDS SUMMARY | 2024-12-13 17:07 | XMS_ITS | Encounter Summary ---
Author Organization [employer] s tem Address [facility] [id number] [address] [place] [address] Care Team Providers Care State Farm Agent Name Role Phone Tom Cruz Primary Care Provider [phone] Encounter Details Date Type Department Care Team (Late st Contact Info) Description 06/27/2024 Telephone [facility] Internal Medicine - Family Medicine [address] [place] [address] Mar Perez CMA Social History Tobacco Use Types Packs/Day Years Used Date Smoking Tobacco: Never Smokeless Tobacco: Never Alcohol Use Standard Drinks/Week Comments Yes 0 (1 standard drink = 0.6 oz pur e alcohol) occasionally [employer] Utilities Answer Date Recorded In the past 12 months has [employer], gas, oil, or water company threatened [...] often do you attend chur ch or sikhism services? Patient declined 04/26/2022 Do you belong to any clubs o r organizations such as alevism groups, unions, fraternal or athletic groups, or [...] Answer Date Recorded Total Score 0 06/22/2024 [facility] of Occupat ional Health - [...] Recorded Do you need help finding a [facility] career center and/or a training program? No 04/26/2022 Hunger Screening Answer Date Recorded Within the past 12 months we worried whether our food would run out before we got money to buy more. Never True 06/24/2024 Within the past 12 months th e food we bought just didn't last and we didn't have money to get more. Never True 06/24/2024 Purpose - Life Answer Date Recorded I [...] encounter Miscellaneous Notes * Telephone Encounter - Mar Perez CMA - 06/27/2024 1:52 PM EST [facility] called because Holli is not going to pay her Echo tomorrow. They are denying it because she has no abnormal Heart Rhythm, This is the number if you want to do a peer to peer. [phone] documented in this encounter Plan of Treatment Upcoming Encounters Date Type Department Care Team (Late st Contact Info) Description 05/06/2025 1:15 PM EST Office Visit [facility] Cardiology [address] [place] [phone] Javier Gurrola MD [facility] [place] [phone] documented as of this encounter Visit Diagnoses [...] documented as of this encounter Care Teams State Farm Agent Relationship Specialty Start Date End Date Tom Cruz DO [address] [place] [address] PCP - General Internal Medicine 12/19/22 documented as of this encounter
--- OUTSIDE RECORDS SUMMARY | 2024-12-13 17:07 | XMS_ITS | Encounter Summary ---
Author Organization Voc[employer] s tem Address [id number] [address] [place] [address] Care Team Providers Care Gold Reclaimer Name Role Phone Tom Cruz Primary Care Provider [phone] Encounter Details Date Type Department Care Team (Late st Contact Info) Description 01/12/2023 Telephone [facility] Internal Medicine - Family Medicine [address] [place] [phone] Ondina Thorpe CMA Social History Tobacco Use [...] How often do you attend chur or pentecostal services? Patient declined 04/26/2022 Do [...] Answer Date Recorded Total Score 6 04/26/2022 [facility] [place] of Occupat ional Health - Occupational Stress [...] Telephone Encounter - Ondina Thorpe CMA - 01/12/2023 10:55 AM EDT Patient's medicaid is not covered under [facility] so she cancelled her gastro empty study. [facility] Can you refer her to there to have test done? * Telephone Encounter - Tom Cruz DO - 01/12/2023 10:55 AM EDT A new order for the gastric emptying study is in the chart, please fax to [facility] documented in this encounter Plan of Treatment Upcoming Encounters Date Type Department Care Team (Late st Contact Info) Description 05/06/2025 1:15 PM EST Office Visit [facility] Card[facility] [address] [place] [phone] Javier Gurrola MD [facility] [place] [address] documented as of this encounter Visit Diagnoses Not on filedocumented in this encounter Additional Health Concerns Infection Onset Date Last Indicated Resolved Time COVID-19 Rule-Out 04/21/2024 04/21/2024 04/21/2024 8:21 PM EST Respiratory Rule-Out 10/04/2024 10/04/2024 025 1:35 AM EDT Assessment Noted Time PHQ-9 Depression Total Score: 6 04/26/20 22 10:36 AM EST documented as of this encounter Care Teams Gold Reclaimer Relationship Specialty Start Date End Date Tom Cruz DO [address] [place] [address] PCP - General Internal Medicine 12/19/22 documented as of this encounter
--- OUTSIDE RECORDS SUMMARY | 2024-12-13 17:07 | XMS_ITS | Encounter Summary ---
Author Organization [facility] tem Address [id number] [address] [place] [address] Care Team Providers Care Operating Room Coordinator Name Role Phone Tom Cruz DO Primary Care Provider [phone] Encounter Details Date Type Department Care Team (Late st Contact Info) Description 06/03/2023 Orders Only [facility] Internal Medicine - Family Medicine [address] [place] [phone] Tom Cruz DO [address] [place] [address] Delayed gastric emptying Social History Tobacco Use [...] often do you attend chur ch or denominational services? Patient declined 04/26/2022 Do you belong [...] PHQ-2 Answer Date Recorded Total Score 0 05/09/2023 [facility] [place] of Occupat ional Health - Occupational Stress [...] Recorded Do you need help finding a [facility] career [facility] and/or a training program? No [...] PM EST Office Visit [facility] [address] [place] [phone] Javier Gurrola MD [address] [place] [phone] documented as of this encounter Procedures Procedure Name Priority Date/Time Associated Diagnosis Comments AMB REFERRAL TO GASTROENTEROLOGY Routine 04/22/2023 Delayed gastric emptying documented in this encounter Results * Ambulatory referral to Gastroenterology (04/22/2023) Tom Cruz DO OUTPATIENT REFERRAL ORDERABLES F inal Result MANUALLY TRANSCRIBED RESULTS documented in this encounter Visit Diagnoses Diagnosis Delayed gastric emptying Dyspepsia and other specified disorders of function of stomach documented in this encounter Additional Health Concerns Infection Onset Date Last Indicated Resolved Time COVID-19 Rule-Out 04/21/2024 04/21/2024 04/21/2024 8:21 PM EST Respiratory Rule-Out 10/04/2024 10/04/2024 025 1:35 AM EDT Assessment Noted Time PHQ-9 Depression Total Score: 0 05/09/20 4:08 PM EST documented as of this encounter Care Teams Operating Room Coordinator Relationship Specialty Start Date End Date Tom Cruz DO [address] [place] [address] PCP - General Internal Medicine 12/19/22 documented as of this encounter
--- OUTSIDE RECORDS SUMMARY | 2024-12-13 17:07 | XMS_ITS | Encounter Summary ---
Author Organization [facility] Address [id number] [address] [place] [address] Care Team Providers Care Mining Detail Draftsperson Name Role Phone Tom Cruz Primary Care Provider [phone] Reason for Visit * Reason Onset Date Comments off work questions 06/25/2024 Encounter Details Date Type Department Care Team (Late st Contact Info) Description 06/25/2024 Telephone [facility] Neurology [address] [place] [address] Monse Roy off work questions Social History Tobacco Use Types Packs/Day Years Used Date Smoking Tobacco: Never Smokeless Tobacco: Never Alcohol Use Standard Drinks/Week Comments Yes 0 (1 standard drink = 0.6 oz pur e alcohol) occasionally [employer] Utilities Answer Date Recorded In the past 12 months has [employer], gas, oil, or water company threatened to [...] often do you attend chur ch or jain services? Patient declined 04/26/2022 Do you belong to any clubs o r organizations such as mormon groups, unions, fraternal or athletic groups, or [...] Answer Date Recorded Total Score 0 06/22/2024 [facility] of Occupat ional Health - Occupational [...] Recorded Do you need help finding a [facility] career center and/or a training program? [...] encounter Miscellaneous Notes * Telephone Encounter - Monse Roy - 06/25/2024 10:52 AM EST Patient called to inform us that all testing is scheduled. Caller states everything is scheduled for middle or end of June. Patient is off work until June and will need more time off until all testing is completed. Please advise [phone] ( * Telephone Encounter - Aminah Stover CMA - 06/25/2024 10:52 AM EST Air Duct Mechanic attempted to call patient. Left voicemail requesting call back, If patient returns call, please ask if they will be sending additional paperwork to our office, or if we need to update the paperwork that we already have on file. Thank you. documented in this encounter Plan of Treatment Upcoming Encounters Date Type Department Care Team (Late st Contact Info) Description 05/06/2025 1:15 PM EST Office Visit [facility] [address] [place] [phone] Javier Gurrola MD [facility] [place] [address] documented as of this encounter Visit Diagnoses [...] documented as of this encounter Care Teams Mining Detail Draftsperson Relationship Specialty Start Date End Date Tom Cruz DO [address] [place] [address] PCP - General Internal Medicine 12/19/22 documented as of this encounter
--- OUTSIDE RECORDS SUMMARY | 2024-12-13 17:07 | XMS_ITS | Encounter Summary ---
Author Organization [facility] Address [address] [place] [address] Care Team Providers Care Atmospheric Physics Professor Name Role Phone Tom Cruz MD Primary Care Provider [phone] Encounter Details Date Type Department Care Team (Late st Contact Info) Description 11/10/2023 Abstract [facility] [address] [place] [phone] Ron Valenzuela [facility] [place], [facility] Social History Tobacco Use Types Packs/Day Years Used Date Smoking Tobacco: Never Smokeless Tobacco: Never Alcohol Use Standard Drinks/Week Comments Yes 0 (1 standard drink = 0.6 oz pure alcohol) occasional alcohol use; caffeine: 1-2 cups/day Comments No Sex and Gender Information Value Date Recorded Sex Assigned at Not on file Legal Sex Female 11:19 PM EDT Gender Identity Not on file Sexual Orientation Not on file documented as of this encounter Plan of Treatment Upcoming Encounters Date Type Department Care Team (Late st Contact Info) Description 01/23/2025 1:20 PM EDT Office Visit [facility] [address] [place] [phone] Ron Valenzuela, [facility] [place], [place] [phone] documented as of this encounter Visit Diagnoses Not on filedocumented in this encounter Care Teams Atmospheric Physics Professor Relationship Specialty Start Date End Date Tom Cruz MD PCP - General Internal Medicine 11/01/22 documented as of this encounter
--- OUTSIDE RECORDS SUMMARY | 2024-12-13 17:07 | XMS_ITS | Encounter Summary ---
Author Organization [facility] Address [address] [place] [address] Care Team Providers Care Television Mechanic Name Role Phone Tom Cruz MD Primary Care Provider [phone] Encounter Details Date Type Department Care Team (Late st Contact Info) Description 01/17/2024 Abstract [facility] [address] [place] [address] Ron Valenzuela [facility] [place], [facility] Social History Tobacco Use Types Packs/Day Years [...] 01/23/2025 1:20 PM EDT Office Visit [facility] [address] [place] [address] Ron Valenzuela, [facility] [place], [place] [phone] documented as of this encounter Visit Diagnoses Not on filedocumented in this encounter Care Teams Television Mechanic Relationship Specialty Start Date End Date Tom Cruz MD PCP - General Internal Medicine 11/01/22 documented as of this encounter
--- OUTSIDE RECORDS SUMMARY | 2024-12-13 17:07 | XMS_ITS | Encounter Summary ---
Author Organization [employer] s tem Address [facility] [id number] [address] [place] [address] Care Team Providers Care Report Clerk Name Role Phone Tom Cruz Primary Care Provider [phone] Encounter Details Date Type Department Care Team (Late st Contact Info) Description 11/18/2023 Telephone [facility] Internal Medicine - Family Medicine [address] [place] [phone] Jeremie Turner CMA Social History Tobacco Use [...] often do you attend chur ch or mormonism services? Patient declined 04/26/2022 Do you belong to any clubs o r organizations such as episcopal groups, unions, fraternal or athletic groups, or [...] Answer Date Recorded Total Score 0 11/21/2023 [facility] [place] of Occupat ional Health - Occupational Stress [...] Telephone Encounter - Jeremie Turner CMA - 11/18/2023 10:11 AM EDT Pt called states she went to ER 11/16 and she had low Potassium and feels fatigue and states she isfoggy. I could not get her in today for a follow up. Told pt to go to ER if she is still not feeling well. Call Tuesday early to get a same day apt with you. Pharmacy is listed and correct. Pt states she has been drinking plenty. * Telephone Encounter - Tom Cruz DO - 11/18/2023 10:11 AM EDT Message noted. Patient was seen in emergency room. Has follow-up appointment in this office today documented in this encounter Plan of Treatment Upcoming Encounters Date Type Department Care Team (Late st Contact Info) Description 05/06/2025 1:15 PM EST Office Visit [facility] Card[facility] [address] [place] [phone] Javier Gurrola MD [facility] [place] [phone] documented as of this encounter Visit Diagnoses Not on filedocumented in this encounter Additional Health Concerns Infection Onset Date Last Indicated Resolved Time COVID-19 Rule-Out 04/21/2024 04/21/2024 04/21/2024 8:21 PM EST Respiratory Rule-Out 10/04/2024 10/04/2024 025 1:35 AM EDT Assessment Noted Time PHQ-9 Depression Total Score: 1 07/07/19 24 10:50 AM EST documented as of this encounter Care Teams Report Clerk Relationship Specialty Start Date End Date Tom Cruz DO [address] [place] [address] PCP - General Internal Medicine 12/19/22 documented as of this encounter
--- OUTSIDE RECORDS SUMMARY | 2024-12-13 17:07 | XMS_ITS | Clinical Summary ---
Author Organization Spiracur tem Address [facility] [place]-[id number] [address] [place] [address] Care Team Providers Care Alignment Mechanic Name Role Phone Tom Cruz Primary Care Provider [phone] Allergies Active Allergy Reactions Criticality Noted Date Comments Bee Venom Protein (Honey Bee) Swelling High 07/15/2014 Swelling and difficulty breathing Erythromycin Itching,Swelling,D ermatitis,Rash,maldonado n Low 07/15/2014 At injection site Administered d/t PPROM, discontinued infusion after rxn Hydrocodone 12/29/2023 Other Reaction(s): Hallucinating Other Reaction(s): Hallucinating, Hallucinations Other Reaction(s): Hallucinating Lamotrigine Rash,Swelling Medium 01/28/2022 Other Reaction(s): Unknown Other Reaction(s): Swelling, facial swelling Lurasidone Other (See Comments) 02/02/2023 Increased depression/SI (latuda) Other Reaction(s): Other (See Comments) Increased depression/SI Other Reaction(s): Depression Other Reaction(s): Depression, SUICIDAL Azithromycin Swelling,Dermatiti s,Rash,pain Low 06/07/2018 When taken PO Medications * This document contains information received from the source organization and may not represent a complete record from that organization. albuterol (PROVENTIL HFA;VENTOLIN HFA) 90 mcg/actuation inhalerIndication s:Viral URI with cough Inhale 2 puffs every 4 (four) hours as needed for wheezing. 18 g 11/23/20 24 Active riboflavin, vitamin B2, 400 mg tabletIndications :Other migraine with status migrainosus, not intractable Take 400 mg by mouth in the morning. 30 tablet 4 08/04/19 25 Active magnesium oxide (MAGOX) 400 mg tabletIndications :Other migraine with status migrainosus, not intractable Take 1 tablet (400 mg total) by mouth in the morning. 9 tablet 4 08/04/19 25 Active levomefolate/alga l oil (L-METHYLFOLATE FORMULA ORAL) Take 15 mg by mouth in the morning. 07/25/19 25 Active methylphenidate HCl (CONCERTA) 36 mg CR tablet 1 tablet (36 mg total) every morning. 07/09/19 25 Active ziprasidone (GEODON) 20 mg capsule Take 1 capsule (20 mg total) by mouth in the morning and 1 capsule (20 mg total) in the evening. Take with meals. 20 mg in am, 40 mg in pm . 07/25/19 25 Active acetaminophen (TylenoL) 325 mg tablet Take 2 tablets (650 mg total) by mouth every 6 (six) hours as needed for pain or headaches. 30 tablet 08/09/19 25 Active famotidine (PEPCID) 20 mg tablet Take 1 tablet (20 mg total) by mouth nightly as needed for heartburn or indigestion. Active ashwagandha root extract 300 mg tablet Take 300 mg by mouth in the morning and 300 mg before bedtime. Active ubrogepant (UBRELVY) 50 mg tabletIndications :Other migraine without status migrainosus, not intractable Take 50 mg by mouth as needed (Headache). 10 tablet 09/06/19 25 Active divalproex (DEPAKOTE) 500 mg EC tablet Take 1 tablet (500 mg total) by mouth 3 (three) times a day. Active APRI 0.15-0.03 mg per tablet 11/28/19 25 Active LORazepam (ATIVAN) 0.5 mg tablet Take 1 tablet (0.5 mg total) by mouth. prn 11/23/19 25 Active desvenlafaxine (PRISTIQ) 50 mg 24 hr tablet Take 1 tablet (50 mg total) by mouth. 11/23/19 25 Active tiZANidine (ZANAFLEX) 4 mg tabletIndications :Cervical radiculopathy Take 1 tablet (4 mg total) by mouth 2 (two) times a day as needed for muscle spasms. 20 tablet 12/06/19 25 Active promethazine (PHENERGAN) 25 mg tabletIndications :Nausea and vomiting, unspecified vomiting type Take 1 tablet (25 mg total) by mouth every 6 (six) hours as needed (headache, nausea, or vomiting). 20 tablet 12/06/19 25 Active desvenlafaxine (PRISTIQ) 25 mg 24 hr tablet Take 1 tablet (25 mg total) by mouth in the morning. 025 Discontin ued(Dose adjustmen t) Bacillus coagulans/inulin (PROBIOTIC WITH PREBIOTIC ORAL) Take 500,000 Million Cells by mouth in the morning. 025 Discontin ued(Thera py completed ) promethazine (PHENERGAN) 25 mg tabletIndications :Nausea and vomiting, unspecified vomiting type Take 1 tablet (25 mg total) by mouth every 6 (six) hours as needed (headache, nausea, or vomiting). 20 tablet 08/30/19 25 025 Discontin ued(Reord er) bacitracin-polymy bruce B (POLYSPORIN) ophthalmic ointmentIndicatio ns:Chalazion of left upper eyelid Administer 0.5 inches into the left eye 2 (two) times a day as needed (eyelid stye). 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 Syncope, unspecified syncope type 08/14/2024 Syncope 08/13/2024 POTS (postural orthostatic tachycardia syndrome) 07/02/2024 Overview (07/18/2024): Tilt table test performed on this date to confirm diagnosis Recurrent episodes of unresponsiveness 5 premature rupture of membranes 3 Asthma 04/26/2022 Urge incontinence of urine 04/26/2022 Bipolar 1 disorder 11/10/2021 Generalized anxiety disorder with panic attacks 11/10/2021 Post traumatic stress disorder (PTSD) 11/10/2021 Bulimia nervosa 11/10/2021 Gross hematuria 03/01/2019 Migraine aura occurring with and without headach e 01/03/2017 Insomnia 06/24/2015 Resolved Problems Problem Noted Date Diagnosed Date Resolved Date 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 04/0 06/2024 Complex tear of medial menis cus, current injury, left knee, initial encounter 04/26/202206/2024 Borderline personality disorder 11/10/2021 08/29/2024 Complicated migraine 06/17/2021 025 Endometriosis 02/25/2021 07/09/2024 Encounters Date Type Department Care Team Description 12/05/2024 12:45 PM EDT Office Visit [facility] [address] [place] [address] Tom Cruz DO Cervical radiculopathy (Primary Dx); Nausea and vomiting, unspecified vomiting type 12/05/2024 Travel 12/04/2024 Telephone [facility] [address] [place] [address] Jeremie Turner CMA 10/19/2024 1:15 PM EDT Office Visit [facility] [address] [place] [address] Javier Gurrola MD POTS (postural orthostatic tachycardia syndrome) (Primary Dx) 10/19/2024 Travel 10/18/2024 Telephone [facility] [address] [place] [address] Allison Douglas CMA 10/12/2024 9:00 AM EDT Office Visit [facility] Department of [facility] [address] [place] [address] Leighton Lindsey MD Other migraine without status migrainosus, not intractable (Primary Dx); On valproic acid therapy; Migraine aura occurring with and without headache 10/12/2024 Travel 10/05/2024 Travel 10/04/2024 9:52 PM EDT - 10/05/2024 1:54 AM EDT Emergency [facility] - Emergency [address] [place] [id number] Velasquez Keith, Nausea and vomiting, unspecified vomiting type (Primary Dx); Fever, unspecified fever cause Discharge Disposition: Home 10/04/2024 Travel 09/27/2024 12:53 PM EDT - 09/27/2024 11:59 PM EDT Hospital Encounter [facility] - Cardiovascular [address] [place] [phone] Tom Cruz DO Orthostatic hypotension Discharge Disposition: Home 09/27/2024 Travel from Last 3 Months Immunizations Immunization Administration Dates Next Due DTaP 11/11/2015 DTaP, Unspecified 10/17/2002, 8,1997,1997,1997 Hep B / HIB 1997 Hep B, Adolescent or Pediatric 1997,1996 Hep B, Unspecified 12/17/2015,1997 Hepatitis B 12/29/2015,12/17/2015,11/26/2015 HiB 05/17/1998, 8,1997,1996,1997 Hib (HbOC) 03/27/1998,1997 IPV 05/17/1998 Influenza (IM) Preservative Free 01/27/2016 Influenza, Injectable, quadr ivalent (PF) 04/28/2021 Influenza, Unspecified 04/28/2021,05/02/2018, MMR 10/17/2002,03/27/1998 OPV 1997,1997,1997 Polio, Unspecified 10/17/2002 Rho (D) Immune Globulin 09/23/2022,09/17/2022 Tdap 09/17/2022, 6,01/08/2014,2002,10/17/2002,03/27/1998,03/27/1998,0 1997,1997,1997, 998,1997,1997,1997, Varicella 01/08/2014 Family History Medical History Relation Name Comments Anxiety disorder Father Depression Father Anxiety disorder Paternal Grandmother Depression Paternal Grandmother Alcohol abuse Paternal Uncle Relation Name Status Comments Father Paternal Grandmother Paternal Uncle Social History Tobacco Use Types Packs/Day Years Used Date Smoking Tobacco: Never Smokeless Tobacco: Never Alcohol Use Standard Drinks/Week Comments Not Currently 0 (1 standard drink = 0.6 oz pur e alcohol) [facility] Utilities Answer Date Recorded In the [...] week 04/26/2022 [facility] Patient declined 04/26/2022 Do you belong [...] Answer Date Recorded Total Score 0 12/05/2024 [facility] - [...] file Not on file Not on file Last Filed Vital Signs [...] Mass Index 28.19 12/05/2024 12:50 PM EDT Plan of Treatment Upcoming Encounters Date Type Department Care Team (Late st Contact Info) Description 05/06/2025 1:15 PM EST Office Visit [facility] [address] [place] [phone] Javier Gurrola MD [address] [phone] Health Maintenance Due Date Last Done Comments COVID-19 Vaccine (2023-2 5 season) 2024 02/28/2021, 02/08/2021 Adult BMI Follow Up Plan 01/09/2025 01/10/2024 Influenza Vaccine 01/28/2025 04/28/2021, , 05/02/2018, Additional history exists Tobacco Screening 10/19/2025 10/19/2024 Adult BMI Screening 12/05/2025 12/05/2024 Depression Screening 12/05/2025 12/05/2024 DTaP,Tdap and Td Vaccines (1 0 - Td or Tdap) 09/17/2032 09/17/2022, 11/11/2015, 11/11/2015, Additional history exists Pap Smear Discontinued 07/27/2023, 07/06/2022 Goals Goal Patient Goal Type Associated Problems Recent Progress Patient-Stated? Author Return home General Yes Anusha Guevara, RN Note: Evaluation of progress towards goal: Plan to return home. Medical Devices Not on file Procedures Procedure Name Priority Date/Time Associated Diagnosis Comments CT ABDOMEN AND PELVIS W CONT STAT 10/05/2024 1:00 AM EDT XR CHEST 1 VW STAT 10/05/2024 1:00 AM EDT TROP I, HIGH SENSITIVITY 1 HOUR STAT 10/05/2024 12:05 AM EDT POCT NURSING URINE MACROSCOPIC UA Routine 10/04/2024 10:58 PM EDT ER EXTRA URINE STAT 10/04/2024 10:47 PM EDT SARS/FLU A+B/RSV BY NAAT/MOLECULAR (M4RT COLLECTION TUBE) STAT 10/04/2024 10:47 PM EDT BLUE TOP STAT 10/04/2024 10:46 PM EDT RAINBOW DRAW STAT 10/04/2024 10:46 PM EDT TROPONIN I, HIGH SENSITIVITY 0 HOUR STAT 10/04/2024 10:45 PM EDT TROPONIN I, HIGH SENSITIVITY 0 HOUR STAT 10/04/2024 10:45 PM EDT LIPASE STAT 10/04/2024 10:45 PM EDT LACTATE W/ REFLEX STAT 10/04/2024 10: 45 PM EDT COMPREHENSIVE METABOLIC PANEL STAT 10/04/2024 10:45 PM EDT CBC WITH AUTO DIFFERENTIAL STAT 10/04/2024 10:45 PM EDT ECHO COMPLETE WO CONTRAST Routine 09/27/2024 1:29 PM EDT Orthostatic hypotension from Last 3 Months Results * CT abdomen and pelvis with contrast (10/05/2024 1:00 AM EDT) Anatomical Region Laterality Modality Body, Abdomen, Body Covera N/A Compu alberto Tomography 10/05/2024 1:03 AM EDT Narrative 10/05/2024 1:10 AM EDT ABDOMEN AND PELVIS CT WITH CONTRAST HISTORY: Abdominal pain, vomiting COMPARISON: CT abdomen and pelvis 12/13/2021 TECHNIQUE: CT abdomen and pelvis was performed. Axial images were obtained following the uneventful administration of 100 cc Omnipaque 300 nonionic intravenous contrast. Coronal and sagittal reformatted images were obtained and reviewed. Automated exposure control was utilized. FINDINGS: Lung bases are clear. No pleural fluid collection. Visible heart is within normal limits. Liver, spleen, pancreas and adrenal glands are within normal limits. Contracted gallbladder. No biliary ductal dilatation. Symmetric renal enhancement. No hydronephrosis or perinephric fluid collection. Urinary bladder is unremarkable. Uterus and adnexal structures are within normal limits. The bowel demonstrates no obstruction or acute inflammatory change. Normal appendix. No free air or fluid. No significant mesenteric lymph node enlargement. Normal caliber aorta and iliac arteries with no significant atherosclerotic disease. Right-sided IVC. Patent portal and mesenteric veins. No significant enlargement of retroperitoneal or pelvic lymph nodes. No acute osseous abnormality. IMPRESSION: * No acute pathologic process. All CT scans at this facility use dose modulation, iterative reconstruction, and/or weight based dosing when appropriate to reduce radiation dose to as low as reasonably achievable. Finalized by Parker Trinidad MD on 10/05/2024 1:10 AM Procedure Note Parker Trinidad MD - 10/05/[address] WITH CONTRAST HISTORY: Abdominal pain, vomiting COMPARISON: CT abdomen and pelvis 12/13/2021 TECHNIQUE: CT abdomen and pelvis was performed. Axial images wereobtained following the uneventful administration of 100 cc Omnipaque 300nonionic intravenous contrast. Coronal and sagittal reformatted imageswere obtained and reviewed. Automated exposure control was utilized. FINDINGS: Lung bases are clear. No pleural fluid collection. Visible heart is withinnormal limits. Liver, spleen, pancreas and adrenal glands are within normal limits.Contracted gallbladder. No biliary ductal dilatation. Symmetric renal enhancement. No hydronephrosis or perinephric fluidcollection. Urinary bladder is unremarkable. Uterus and adnexal structuresare within normal limits. The bowel demonstrates no obstruction or acute inflammatory change. Normalappendix. No free air or fluid. No significant mesenteric lymph nodeenlargement. Normal caliber aorta and iliac arteries with no significantatherosclerotic disease. Right-sided IVC. Patent portal and mesentericveins. No significant enlargement of retroperitoneal or pelvic lymph nodes. Noacute osseous abnormality. IMPRESSION: * No acute pathologic process. All CT scans at this facility use dose modulation, iterativereconstruction, and/or weight based dosing when appropriate to reduceradiation dose to as low as reasonably achievable. Finalized by Parker Trinidad MD on 10/05/2024 1:10 AM us Velasquez Keith DO IMG CT ORDERABLES Final Resu lt * X-ray chest 1 view (10/05/2024 1:00 AM EDT) Anatomical Region Laterality Modality Body, Chest N/A Computed Radiogr aphy 10/05/2024 1:02 AM EDT Narrative 10/05/2024 1:03 AM EDT HISTORY: Chest pain, fever COMPARISON: Chest x-ray 07/13/2024 FINDINGS: AP upright view of the chest was performed. Heart size is normal. Lungs demonstrate no significant airspace consolidation or vascular congestion. There is no pneumothorax or pleural effusion. IMPRESSION: * No acute abnormality. Finalized by Parker Trinidad MD on 10/05/2024 1:03 AM Procedure Note Parker Trinidad MD - 10/05/2024 HISTORY: Chest pain, fever COMPARISON: Chest x-ray 07/13/2024 FINDINGS: AP upright view of the chest was performed. Heart size isnormal. Lungs demonstrate no significant airspace consolidation orvascular congestion. There is no pneumothorax or pleural effusion. IMPRESSION: * No acute abnormality. Finalized by Parker Trinidad MD on 10/05/2024 1:03 AM us Velasquez Keith DO IMG DIAGNOSTIC IMAGING ORDER KRISTYN Final Result * Troponin I, High Sensitivity 1 Hour (10/05/2024 12:05 AM EDT) [facility] TROPONIN I, HIGH SENSITIVITY <2 <16 ng/L 10/05/2024 12:34 AM EDT [facility] Blood Venous blood / Unknown 10/05/2024 12:05 AM EDT 10/05/2024 12:07 AM EDT us Velasquez Keith DO LAB BLOOD ORDERABLES Final R esult [facility] [address] [place] [address], [place] * POCT Nursing Urine Macroscopic UA (10/04/2024 10:58 PM EDT) [facility] POC Urine Specific [place] 1.015 1.010, 1.015, 1.020, 1.025 10/04/2024 10:54 PM EDT [facility] POC Urine Leukocyte Esterase Negative Negative 10/04/2024 10:54 PM EDT [facility] POC Urine Nitrite Negative Negative 10/04/2024 10:54 PM EDT [facility] POC Urine pH 7.0 5.0, 6.0, 6.5, 7.0, 7.5, 8.0, 8.5, 5.5 10/04/2024 10:54 PM EDT [facility] POC Urine Protein Negative Negative 10/04/2024 10:54 PM EDT [facility] POC Urine Glucose Negative Negative 10/04/2024 10:54 PM EDT [facility] POC Urine Ketones Negative Negative 10/04/2024 10:54 PM EDT [facility] POC Urine Urobilinogen 0.2 E.U./dL 10/04/2024 10:54 PM EDT [facility] POC Urine Bilirubin Negative Negative 10/04/2024 10:54 PM EDT [facility] POC Urine Blood/HGB Negative Negative 10/04/2024 10:54 PM EDT [facility] Urine 10/04/2024 10:5 8 PM EDT 10/04/2024 10:54 PM EDT us Velasuqez Keith DO POINT OF CARE TEST ORDERABLE S Final Result Performing Organization Address [facility]/ZIP Co de Phone Number [address] [address], [place] * Extra Urine (10/04/2024 10:47 PM EDT) Extra Tube Auto Resulted 10/05/2024 12:02 AM EDT [facility] Urine Urine specimen collection, clean catch / Unknown 10/04/2024 10:47 PM EDT 10/04/2024 11:10 PM EDT us Velasquez Keith DO URINE ORDERABLES Final Resul t Performing Organization Address City/[facility] Co de Phone Number [address] [address], [place] * SARS/FLU A+B/RSV by NAAT/Molecular (M4RT Collection Tube) (10/04/2024 10:47 PM EDT) FLU A PCR Negative Negative 10/05/2024 1:35 AM EDT [facility] FLU B PCR Negative Negative 10/05/2024 1:35 AM EDT [facility] RSV BY PCR Negative Negative 10/05/2024 1:35 AM EDT [facility] SARS COV 2 BY PCR Not Detected Not Detected 10/05/2024 1:35 AM EDT [facility] Swab Nasopharyngeal structure / Unknown 10/04/2024 10:47 PM EDT 10/05/2024 12:57 AM EDT Narrative [facility] - 10/05/2024 1:35 AM EDT The Xpert Xpress SARS-CoV-2/Flu/RSV Plus test is a rapid, multiplexed real-time RT-PCR test intended for the simultaneous qualitative detection and differentiation of SARS-CoV-2, influenza A, influenza B and respiratory syncytial virus (RSV) viral RNA from individuals suspected of respiratory viral infection consistent with COVID-19 by Their healthcare provider. This test has not been validated in asymptomatic patients. The Xpert Xpress SARS-CoV-2 test is intended for use by qualified and trained operators who are performing tests using either [employer] or [employer] systems and is limited to laboratories that meet the CLIA requirements to perform high and moderate complexity tests. The Xpert Xpress SARS-CoV-2/Flu/RSV Plus is only for use under the Food and Drug Administration's Emergency Use Authorization. Results are for the simultaneous detection and differentiation of SARS-CoV-2, influenza A, influenza B and RSV nucleic acids in clinical specimens. SARS-CoV-2, influenza A, influenza B and RSV RNA identified by this test are generally detectable in upper respiratory samples during the acute phase of infection. Positive results are Indicative of the presence of the identified virus, but do not rule out bacterial infection or co-infection with other pathogens not detected by this test. Clinical correlation with patient history and other diagnostic information is necessary to determine patient infection status. The agent detected may not be the definite cause of disease. Negative results do not preclude SARS-CoV-2, influenza A, influenza B and RSV infection and should not be used as the sole basis for treatment or other patient management decisions. Negative results must be combined with clinical observations, patient history and epidemiological information. An Invalid result may occur with specimen-associated inhibition unable to be resolved with specimen repeat. Fact Sheet for Healthcare Providers: https://www.fda.gov/media/326307/download Fact Sheet for Patients: https://www.fda.gov/media/661500/download us Velasquez Keith DO MICROBIOLOGY - GENERAL ORDER KRISTYN Final Result [facility] [address] [place] [address], * Light Blue Top (10/04/2024 10:46 PM EDT) Extra Tube Auto Resulted 10/05/2024 12:02 AM EDT [facility] Blood Venous blood / Unknown 10/04/2024 10:46 PM EDT 10/04/2024 10:57 PM EDT us Velasquez Keith DO LAB BLOOD ORDERABLES Final R esult Performing Organization Address City/[facility]/ZIP Co de Phone Number [address] [place] [address], [place] * Troponin I, High Sensitivity 0 Hour (10/04/2024 10:45 PM EDT) Pathologist [facility] TROPONIN I, HIGH SENSITIVITY <2 <16 ng/L 10/04/2024 11:25 PM EDT [facility] Blood Venous blood / Unknown 10/04/2024 10:45 PM EDT 10/04/2024 10:57 PM EDT us Velasquez Keith DO LAB BLOOD ORDERABLES Final R esult Performing Organization Address [facility] Co de Phone Number [address] [place] [address], [place] * Lactate w/ Reflex (10/04/2024 10:45 PM EDT) [facility] LACTATE W/REFLEX 0.6 0.4 - 2.0 mmol/L 10/04/2024 11:15 PM EDT [facility] Blood Venous blood / Unknown 10/04/2024 10:45 PM EDT 10/04/2024 10:57 PM EDT Narrative [facility] - 10/04/2024 11:15 PM EDT Result did not trigger repeat Lactate, re-order if needed. us Velasquez Keith DO LAB BLOOD ORDERABLES Final R esult Performing Organization Address City/[facility] Co de Phone Number [address] [place] [address], [place] * (ABNORMAL) CBC auto differential (10/04/2024 10:45 PM EDT) WBC 9.7 4 - 11 x10E9/L 10/04/2024 11:06 PM EDT [facility] RBC Count 4.28 3.8 - 5.2 X10E12/L 10/04/2024 11:06 PM EDT [facility] Hemoglobin 13.0 11.7 - 15.5 g/dL 10/04/2024 11:06 PM EDT [facility] Hematocrit 38.0 35 - 47 % 10/04/2024 11:06 PM EDT [facility] MCV 89 80 - 100 fL 10/04/2024 11:06 PM EDT [facility] MCH 30.4 27 - 34 pg 10/04/2024 11:06 PM EDT [facility] MCHC 34.2 32 - 36 g/dL 10/04/2024 11:06 PM EDT [facility] RDW 13.4 11.5 - 15 % 10/04/2024 11:06 PM EDT [facility] Platelet Count 289 150 - 450 X10E9/L 10/04/2024 11:06 PM EDT [facility] MPV 8.8 7 - 12 fL 10/04/2024 11:06 PM EDT [facility] Neutrophils % 54.9 % 10/04/2024 11:06 PM EDT [facility] Lymphocytes % 37.1 % 10/04/2024 11:06 PM EDT [facility] Monocytes % 7.0 % 10/04/2024 11:06 PM EDT [facility] Eosinophils % 0.7 % 10/04/2024 11:06 PM EDT [facility] Basophils % 0.3 % 10/04/2024 11:06 PM EDT [facility] Neutrophils Absolute (A) 5.3 1.5 - 6.6 10*3/uL 10/04/2024 11:06 PM EDT [facility] Lymphocytes Absolute 3.6(H) 1.0 - 3.5 10*3/uL 10/04/2024 11:06 PM EDT [facility] Monocytes Absolute 0.7 0.0 - 0.9 10*3/uL 10/04/2024 11:06 PM EDT [facility] Eosinophils Absolute 0.1 0.0 - 0.4 10*3/uL 10/04/2024 11:06 PM EDT [facility] Basophils Absolute 0.0 0.0 - 0.2 10*3/uL 10/04/2024 11:06 PM EDT [facility] Differential Type AUTOMATED DIFFERENTIAL 10/04/2024 11:06 PM EDT [facility] Blood Venous blood / Unknown 10/04/2024 10:45 PM EDT 10/04/2024 10:57 PM EDT us Velasquez Keith DO LAB BLOOD ORDERABLES Final R esult Performing Organization Address City/[facility]/ZIP Co de Phone Number [address] [place] [address], [place] * (ABNORMAL) Lipase (10/04/2024 10:45 PM EDT) LIPASE 49(H) 17 - 40 U/L 10/04/2024 11:13 PM EDT [facility] Blood Venous blood / Unknown 10/04/2024 10:45 PM EDT 10/04/2024 10:57 PM EDT us Velasquez Keith DO LAB BLOOD ORDERABLES Final R esult Performing Organization Address City/[facility]/ZIP Co de Phone Number [address] [place] [address], [place] * (ABNORMAL) Comprehensive metabolic panel (10/04/2024 10:45 PM EDT) SODIUM 138 134 - 146 mmol/L 10/04/2024 11:16 PM EDT [facility] POTASSIUM 3.6 3.5 - 5.0 mmol/L 10/04/2024 11:16 PM EDT [facility] CHLORIDE 108 98 - 109 mmol/L 10/04/2024 11:16 PM EDT [facility] CARBON DIOXIDE 24 22 - 32 mmol/L 10/04/2024 11:16 PM EDT [facility] ANION GAP 6 5 - 15 mmol/L 10/04/2024 11:16 PM EDT [facility] BLOOD UREA NITROGEN 13 5 - 23 mg/dL 10/04/2024 11:16 PM EDT [facility] CREATININE 0.92 0.40 - 1.00 mg/dL 10/04/2024 11:16 PM EDT [facility] Comment:METHOD TRACEABLE TO IDVT STANDARD GLUCOSE 105(H) 65 - 99 mg/dL 10/04/2024 11:16 PM EDT [facility] CALCIUM 8.7 8.5 - 10.5 mg/dL 10/04/2024 11:16 PM EDT [facility] TOTAL PROTEIN 7.1 6.0 - 8.0 g/dL 10/04/2024 11:16 PM EDT [facility] ALBUMIN 4.0 3.2 - 5.3 g/dL 10/04/2024 11:16 PM EDT [facility] ALKALINE PHOSPHATASE 47 39 - 130 U/L 10/04/2024 11:16 PM EDT [facility] AST 18 <=41 U/L 10/04/2024 11:16 PM EDT [facility] ALT 15 <=31 U/L 10/04/2024 11:16 PM EDT [facility] BILIRUBIN,TOTAL 0.5 0.3 - 1.2 mg/dL 10/04/2024 11:16 PM EDT [facility] EGFR Non-Race Dependent 88 >=60 ml/min/1.7 3sq.m 10/04/2024 11:16 PM EDT [facility] Comment: eGFR not reported due to non-numeric value for Creatinine. Reported eGFR is based on the CKD-EPI 2020 equation that does not use a race coefficient. Blood Venous blood / Unknown 10/04/2024 10:45 PM EDT 10/04/2024 10:57 PM EDT us Velasquez Keith DO LAB BLOOD ORDERABLES Final R esult [facility] [address] [place] [address], [place] * Echo complete W/O contrast (09/27/2024 1:29 PM EDT) LVOT stroke volume 45.93 ml XCELERA LV Systolic Volume 24.50 mL XCELERA EF 65 % XCELERA FS 30 28 - 44 % XCELERA LV Diastolic Volume 69.90 mL XCELERA LVIDd 4.30 cm XCELERA LVIDs 3.00 cm XCELERA IVS 0.80 0.6 - 1.1 cm XCELERA PW 1.00 0.6 - 1.1 cm XCELERA LVOT diameter 1.90 cm XCELERA TDI 16.80 cm/s XCELERA MV TDI E' (medial) 12.50 cm/s XCELERA LA Volume Index 18.1 mL/m2 XCELERA E/A ratio 1.60 XCELERA E wave deceleration time 204.00 msec XCELERA MV Peak E Stephen 86.50 cm/s XCELERA MV Peak A Stephen 54.00 cm/s XCELERA LA size 2.90 cm XCELERA Aortic root 3.40 cm XCELERA LA volume 32.90 cm3 XCELERA RV diastolic dimension (basal) 30.0 mm XCELERA AV peak stephen 123.00 cm/s XCELERA LVOT peak stephen 1.00 m/s XCELERA AV VTI 21.80 cm XCELERA LVOT peak VTI 16.20 cm XCELERA AV mean gradient 4.00 mmHg XCELERA AV peak gradient 6.05 mmHg XCELERA AV valve area 2.11 XCELERA Valve area - Index 1.2 XCELERA MV pressure 1/2 time 60.00 ms XCELERA MV valve area p 1/2 method 3.67 cm2 XCELERA LV ESV A2C 37.10 mL XCELERA LV ESV A4C 27.20 mL XCELERA LV RWT 2D 46.51 [facility]A Echo EF Estimated 65 % [facility]A AV Velocity Ratio 0.74 XCELERA Left Ventricle Mass 123.97575 420290647 4 g XCELERA Interventricular Septum Diastolic Thickness by 2D 8 cm XCELERA TASV 10.9 cm/s XCELERA RA 2D Volume 15.0 mL/m2 XCELERA RA area 12.1 cm2 XCELERA Anatomical Region Laterality Modality Chest N/A Ultrasound Narrative 09/28/2024 3:19 PM EDT Left Ventricle appears normal in size and systolic function with an ejection fraction of 60-65%. Normal wall thickness without segmental wall motion abnormalities. No significant Doppler abnormalities Normal atria Normal diastolic function Left Ventricle Left ventricle appears normal in size. Wall thickness is normal. Systolic function is normal with an ejection fraction of 60-65%. No obvious regional wall motion abnormalities. Normal diastolic function is present. Lateral E' is 16.80 cm/s. Medial E' is 12.50 cm/s. Right Ventricle Right ventricular size appears normal. The right ventricular basal diameter is 30.0 mm. Systolic function is normal. Left Atrium Left atrium volume index is normal. The left atrial volume index is 18.1 mL/m2. Right Atrium Right atrium is normal in size. The right atrial area is 12.1 cm2. IVC/SVC IVC appears normal. Mitral Valve Mitral valve structure is normal. There is no regurgitation or stenosis. Tricuspid Valve Tricuspid valve appears to be normal. There is trace regurgitation. There is no evidence of tricuspid valve stenosis. Aortic Valve The aortic valve is trileaflet. There is no regurgitation or stenosis. Pulmonic Valve Pulmonic valve structure is grossly normal. There is trace regurgitation. There is no evidence of pulmonic valve stenosis. Ascending Aorta The aortic root is normal in size. Pericardium There is no pericardial effusion. Study Details A complete echo was performed using complete 2D, color flow Doppler and spectral Doppler. Overall the study quality was adequate. Wall Scoring Baseline Score Index: 1.00 The left ventricular wall motion is normal. Tom Cruz DO CV ECHO ORDERABLES Final Result from Last 3 Months Insurance * Guarantor: Kavita Quijano Account Type Relation to Patient Date of Phone Billing Address Personal/Family Self 1995 [address] [place] [address] [place] [employer] [facility] Member Subscriber Plan / Payer (Ef fective 2024-Present) Name:Kavita Quijano Relation to Subscriber:Spouse Name:Wai Quijano Date of :1998 Address: [address] [place] [address] Payer ID:[id number] (NAIC) Type:Not on file Address: [facility] [place] [address] WORKERS COMPENSATION [employer] [employer] Advance Directives * Full Code (Latest Code Status on File) Date Activated Date Inactivated Comments 08/13/2024 3:45 PM 08/16/2024 4:28 PM * Full Code Date Activated Date Inactivated Comments 09/16/2022 12:58 PM 09/23/2022 7:09 PM Care Teams Alignment Mechanic Relationship Specialty Start Date End Date Tom Cruz DO [address] [place] [address] PCP - General Internal Medicine 12/19/22
--- OUTSIDE RECORDS SUMMARY | 2024-12-13 17:07 | XMS_ITS | Encounter Summary ---
Author Organization [employer] tem Address [id number] [address] [place] [address] Care Team Providers Care Stave Log Ripsaw Operator Name Role Phone Tom Cruz Primary Care Provider [phone] Encounter Details Date Type Department Care Team (Latest Contact Info) Description 12/05/2024 Travel Social History Tobacco Use Types Packs/Day Years Used Date Smoking Tobacco: Never Smokeless Tobacco: Never Alcohol Use Standard Drinks/Week Comments Not Currently 0 (1 standard drink = 0.6 oz pur e alcohol) [place] Utilities Answer Date Recorded In the past 12 months has [employer], gas, oil, or water company threatened [...] often do you attend chur ch or orthodox services? Patient declined 04/26/2022 Do you belong to any clubs o r organizations such as protestant groups, unions, fraternal or athletic groups, or [...] Answer Date Recorded Total Score 0 12/05/2024 [facility] - Occupational Stress Questionnaire Answer Date Recorded [...] Recorded Do you need help finding a [facility] and/or a training program? No [...] PM EST Office Visit [facility] [address] [place] [phone] Javier Gurrola MD [address] [place] [address] documented as of this encounter Goals Goal Patient Goal Type Associated Problems Recent Progress Patient-Stated? Author Return home General Yes Anusha Guevara, KATHERINE Note: Evaluation of progress towards goal: Plan to return home. documented as of this encounter Visit Diagnoses Not on filedocumented in this encounter Additional Health Concerns Assessment Noted Time PHQ-9 Depression Total Score: 0 12/06/19 25 12:50 PM EDT A Body Mass Index follow-up plan has been documented for the patient 01/10/2024 4:11 PM EDT documented as of this encounter Care Teams Stave Log Ripsaw Operator Relationship Specialty Start Date End Date Tom Cruz DO [address] [place] [address] PCP - General Internal Medicine 12/19/22 documented as of this encounter
--- OUTSIDE RECORDS SUMMARY | 2024-12-13 17:07 | XMS_ITS | Encounter Summary ---
Author Organization [facility] Address [address] [place] [address] Care Team Providers Care Pillowcase Cleaner Name Role Phone Tom Cruz MD Primary Care Provider [phone] Encounter Details Date Type Department Care Team (Late st Contact Info) Description 01/23/2024 Abstract [facility] [address] [place] [phone] Ron Valenzuela [facility] [address], [id number] Social History Tobacco Use Types Packs/Day Years [...] 01/23/2025 1:20 PM EDT Office Visit [facility] [address] [place] [phone] Ron Valenzuela, [facility] [place], [place] [phone] documented as of this encounter Visit Diagnoses Not on filedocumented in this encounter Care Teams Pillowcase Cleaner Relationship Specialty Start Date End Date Tom Cruz MD PCP - General Internal Medicine 11/01/22 documented as of this encounter
--- OUTSIDE RECORDS SUMMARY | 2024-12-13 17:07 | XMS_ITS | Clinical Summary ---
Author Organization [facility] Address [address] [place], [place] [id number] Support Name Relationship Address Phone Wai Quijano Spouse [address], [place] [address] Oswald Gaitan Mother [address] [place] [address] Benny Gaitan Father [address] [place] [address] Care Team Providers Care Senior Litigation Paralegal Name Role Phone Agustin Ramos MD Primary Care Provid er Tom Cruz Omar Unavailable [phone] Medications desvenlafaxine ER (PRISTIQ) 25 mg 24 hr tablet TAKE 1 TABLET BY MOUTH DAILY FOR MOOD Active omeprazole (PRILOSEC) 20 mg capsule Take 20 mg by mouth. 4 Active fexofenadine (RADHA) 180 mg tablet Take 180 mg by mouth. [address] (DEPAKOTE) 250 mg EC tablet Take 250 mg by mouth three times a day. Active Desogestrel-Et hinyl Estradiol (APRI) 0.15-0.03 mg per tablet Take 1 tablet by mouth once daily. Active ALBUTEROL INHALATION Inhale as instructed. Active magnesium oxide (MAG-OX) 400 mg (241.3 mg magnesium) tablet Take 400 mg by mouth once daily. Active riboflavin, vitamin B2, (VITAMIN B-2 ORAL) Take by mouth. Activ e ubrogepant (UBRELVY) 50 mg tablet Take 50 mg by mouth once daily as needed for migraine headache (see administration instructions). Active Active Problems Problem Noted Date Diagnosed Date Psychogenic nonepileptic seizure 10/15/2024 Encounters Date Type Department Care Team Description 10/15/2024 5:00 PM EDT [facility] Neurology [address] [place] [address] Rosita Ramos, PhD Psychogenic nonepileptic seizure 10/15/2024 12:00 PM EDT [facility] Epilepsy [address] [place] [address] Praneeth Pena MD Psychogenic nonepileptic seizure (Primary Dx) 10/15/2024 Patient Msg Neurology [address] [place] [address] Rosita Ramos, PhD Seizure program 10/15/2024 Travel 10/02/2024 Results Follow-Up Neurology [address] [place] [address] Chadd Navarrete APRN.CHART PICKER 09/21/2024 Patient Msg Neurology [address] [place] [address] Provider, [facility] Epilepsy from Last 3 Months Family History Medical History Relation Comments Seizures No Family History Social History Tobacco Use Types Packs/Day Years Used Date Smoking Tobacco: Never Smokeless Tobacco: Never Tobacco Cessation:Counseling Given: Not Answered Alcohol Use Standard Drinks/Week Comments Never 0 (1 standard drink = 0.6 oz pur e alcohol) PHQ-2 Answer Date Recorded PHQ-2 score 3 10/15/2024 Area Deprivation Index Answer Date John rded National Score (1-100), lower number is lower ri sk 80 07/13/2024 State Score (1-10), lower number is lower risk 7 07/13/2024 Data from: https://www.neighborhoodatlas.medicine.[facility].edu/. Last address used for calculation [address] 07/13/2024 Comments Unknown Sex and Gender Information Value Date Recorded Sex Assigned at Female 07/06/2024 1:13 PM EST Legal Sex Female 10:04 AM EST Gender Identity Female 07/06/2024 1:13 PM EST Sexual Orientation Straight 07/06/2024 1: 13 PM EST Plan of Treatment Upcoming Encounters Date Type Department Care Team (Late st Contact Info) Description 01/22/2025 5:00 PM EDT [facility] Neurology [address] [place] [address] Rosita Wick, PhD [address] [place] [address] pnes 01/29/2025 5:00 PM EDT [facility] Neurology [address] [place] [address] Rosita Wick, PhD [address] [place] [address] pnes 02/05/2025 5:00 PM EDT [facility] Neurology [address] [place] [address] Rosita Wick, PhD [address] [place] [address] pnes 02/11/2025 5:00 PM EDT [facility] Neurology [address] [place] [address] Rosita Wick, PhD [address] [place] [address] pnes 02/19/2025 5:00 PM EDT [facility] Neurology [address] [place] [address] Rosita Wick, PhD [address] [place] [address] pnes 02/26/2025 5:00 PM EDT [facility] Neurology [address] [place] [address] Rosita Wick, PhD [address] [place] [address] pnes 03/05/2025 5:00 PM EDT [facility] [address] [place] [address] Rosita Wick, PhD [address] [place] [address] pnes 03/12/2025 5:00 PM EDT [facility] [address] [place] [address] Rosita Wick, PhD [address] [place] [address] pnes 03/19/2025 5:00 PM EDT [facility] [address] [place] [address] Rosita Wick, PhD [address] [place] [address] pnes 03/26/2025 5:00 PM EDT [facility] Neu[facility] [address] [place] [address] Rosita Wick, PhD [address] [place] [address] pnes 04/02/2025 5:00 PM EST [facility] [address] [place] [address] Rosita Wick, PhD [address] [place] [address] pnes 04/09/2025 5:00 PM EST [facility] [address] [place] [address] Rosita Wick, PhD [address] [place] [address] pnes Health Maintenance Due Date Last Done Comments Anxiety Screening 2015 Depression Screening 2015 HIV Screening 2015 Hepatitis C Screening 2015 Cervical Cancer Screening 2018 Covid-19 Vaccine (2023-2 5 season) 2024 02/28/2021, 02/08/2021 Influenza Vaccine (#1) 2025 , 05/02/2018, 01/27/2016 DTaP,Tdap,Td Vaccine (10 - T d or Tdap) 09/17/2032 09/17/2022, 11/11/2015, 11/11/2015, Additional history exists Hepatitis B Vaccine Completed 12/29/2015, 12/17/2015, 11/26/2015, Additional history exists Procedures Procedure Name Priority Date/Time Associated Diagnosis Comments OUTSIDE VENDOR CARDIAC OUTPATIENT EXTENDED RHYTHM RECORDING (WITHOUT TELEMETRY) Routine 09/25/2024 2:22 PM EDT Heart palpitations from Last 3 Months Results * OUTSIDE VENDOR CARDIAC OUTPATIENT EXTENDED RHYTHM RECORDING (WITHOUT TELEMETRY) (09/25/2024 2:22 PMEDT) 09/25/2024 2:22 PM EDT Narrative Procedure Note Vivian Tai MD - 08/31/2024 1:47 PM EDT Patient Name: Lulú Quijano : 1995 Ordering Provider: CHADD NAVARRETE Indication: R00.2 Palpitations Type of Monitor: Extended Monitoring-Zio Patch Enrollment Dates: 09/03/2024-09/14/2024 IRHYTHM FINDINGS: Patient had a min HR of 44 bpm, max HR of 156 bpm, andavg HR of 88 bpm. Predominant underlying rhythm was Sinus Rhythm. IsolatedSVEs were rare (<1.0%), and no SVE Couplets or SVE Triplets were present.No Isolated VEs, VE Couplets, or VE Triplets were present. us Chadd Navarrete GUN TESTER.CHART PICKER HOLTER Final R esult [facility] from Last 3 Months Insurance [facility] MEDICAID BLUE CARD PPO OOS [facility] MEDICA[facility] Member Subscriber Plan / Payer (Ef fective 2023-Present) Name:Lulú Quijano Relation to Subscriber:Self Name:Samm Lulú L Payer ID:[id number] (NAIC) Group ID:Not on file Type:Medicaid Address: [place] [id number] Care Teams Senior Litigation Paralegal Relationship Specialty Start Date End Date Agustin Ramos MD [address] [place] [phone] PCP - General 01/27/04 Tom Cruz [address] [facility] [place] [address] Referring Internal Medicine 02/10/23
--- OUTSIDE RECORDS SUMMARY | 2024-12-13 17:07 | XMS_ITS | Encounter Summary ---
[id number] [address] [place] [address] Care Team Providers Care Talent Partner Name Role Phone Tom Cruz Primary Care Provider [phone] Encounter Details Date Type Department Care Team (Late st Contact Info) Description 12/12/2023 Orders Only [facility] - Family Medicine [address] [place] [address] Mar Perez CMA Social History Tobacco Use [...] often do you attend chur ch or druze services? Patient declined 04/26/2022 Do you belong to any clubs o r organizations such as buddhism groups, unions, fraternal [...] Answer Date Recorded Total Score 0 12/06/2023 [facility] of Occupat ional Health - Occupational Stress [...] PM EST Office Visit [facility] [address] [place] [phone] Javier Gurrola MD [address] [place], [place] [phone] documented as of this encounter Procedures Procedure Name Priority Date/Time Associated Diagnosis Comments COPPER, S Routine 12/08/2023 2:45 PM EDT MITOCHONDRIAL AB TITER Routine 2:45 PM EDT HEPATITIS C(HCV) ANTIBODY W/REFLEX TO PCR Routine 12/08/2023 2:45 PM EDT [id number] Routine 12/08/2023 2 :45 PM EDT LIPID PROFILE Routine 12/06/2023 COMPREHENSIVE METABOLIC PANEL Routine 12/06/2023 documented in this encounter Results * [id number] (12/08/2023 2:45 PM EDT) Alpha 1 antitrypsin 146 MANUALLY TRANSCRIBED RESULTS us Tom Cruz DO LAB BLOOD ORDERABLES Edited Resu lt - Final MANUALLY TRANSCRIBED RESULTS * Mitochondrial AB (M2) (12/08/2023 2:45 PM EDT) [facility] Mitochondrial AB (M2) 12.6 MANUALLY TRANSCRIBED RESULTS Tom Cruz DO LAB ORDERABLES Edited Result - Final Performing Organization Address City/[facility]/ZIP Co de Phone Number MANUALLY TRANSCRIBED RESULTS * Copper, S (12/08/2023 2:45 PM EDT) [facility] Copper 1,155 MANUALLY TRANSCRIBED RESULTS Blood Tom Cruz DO LAB BLOOD ORDERABLES Edited Resu lt - Final Performing Organization Address City/[facility]/ZIP Co de Phone Number MANUALLY TRANSCRIBED RESULTS * Hepatitis C(HCV) Ab w/ Reflex to PCR (12/08/2023 2:45 PM EDT) [facility] Hepatitis C Ab Negative Negative CHUYAdarsh OSMIN TRANSCRIBED RESULTS Tom Cruz DO LAB BLOOD ORDERABLES Edited Resu lt - Final Performing Organization Address City/[facility] Co de Phone Number MANUALLY TRANSCRIBED RESULTS * (ABNORMAL) Comprehensive metabolic panel (12/06/2023) [facility] External Albumin 4.8 3.5 - 5.2 MAN UALLY TRANSCRIBED RESULTS External Alt Sgpt 14 5 - 40 MANUALLY TRANSCRIBED RESULTS External Anion Gap 12.0 7.0 - 16.0 MANUALLY TRANSCRIBED RESULTS External Ast 17 9 - 40 MANUALL Y TRANSCRIBED RESULTS External Blood Urea Nitrogen Bun 14 6 - 20 MANUALLY TRANSCRIBED RESULTS External Calcium Ca 9.4 8.5 - 10.5 MANUALLY TRANSCRIBED RESULTS External Chloride 101 95 - 107 MANUALLY TRANSCRIBED RESULTS External Co2 / Carbon Dioxide 27 19 - 31 MANUALLY TRANSCRIBED RESULTS External Creatinine 0.88 0.60 - 1.30 MANUALLY TRANSCRIBED RESULTS External Gfr Non Amer 93 >60 MANUALLY TRANSCRIBED RESULTS External Alkaline Phosphatase 76 40 - 112 MANUALLY TRANSCRIBED RESULTS External Glucose Fasting Or Random (Fbs) 102(A) 70 - 99 MANUALLY TRANSCRIBED RESULTS External Potassium K 4.1 3.5 - 5.4 MANUALLY TRANSCRIBED RESULTS External Sodium Na 140 133 - 146 MANUALLY TRANSCRIBED RESULTS Total Bilirubin 0.5 <=1.2 MANU ALLY TRANSCRIBED RESULTS External Total Protein 7.6 6.1 - 8.3 MANUALLY TRANSCRIBED RESULTS 12/06/2023 Tom Cruz DO LAB BLOOD ORDERABLES Edited Resu lt - Final Performing Organization Address [facility] Co de Phone Number MANUALLY TRANSCRIBED RESULTS * Lipid profile (12/06/2023) External Cholesterol 266 <200 MANUALLY TRANSCRIBED RESULTS External Hdl Cholesterol 56 >39 MANUALLY TRANSCRIBED RESULTS External Ldl (Calc) 201 <100 MANUALLY TRANSCRIBED RESULTS External Triglycerides 46 <150 MANUALLY TRANSCRIBED RESULTS 12/06/2023 Tom Cruz DO LAB BLOOD ORDERABLES Edited Resu lt - [facility] Performing Organization Address [facility] de Phone Number MANUALLY TRANSCRIBED RESULTS documented in this encounter Visit Diagnoses Not on filedocumented in this encounter Additional Health Concerns Infection Onset Date Last Indicated Resolved Time COVID-19 Rule-Out 04/21/2024 04/21/2024 04/21/2024 8:21 PM EST Respiratory Rule-Out 10/04/2024 10/04/2024 025 1:35 AM EDT Assessment Noted Time PHQ-9 Depression Total Score: 0 12/06/19 24 8:37 AM EDT documented as of this encounter Care Teams Talent Partner Relationship Specialty Start Date End Date Tom Cruz DO [address] [place] [address] PCP - General Internal Medicine 12/19/22 documented as of this encounter
--- OUTSIDE RECORDS SUMMARY | 2024-12-13 17:07 | XMS_ITS | Clinical Summary ---
Author Organization [facility] Address [address] [facility] [place] [address] Care Team Providers Care Lead Business Systems Analyst Name Role Phone Tom Cruz MD Primary Care Provider [phone] Allergies Active Allergy Reactions Criticality Noted Date Comments Acetaminophen 12/29/2023 Other Reaction(s): Hallucinating Azithromycin Rash,Swelling Low 06/07/2018 Other Reaction(s): Dermatitis, pain, Unknown When taken PO Other Reaction(s): Rash Bee Venom Unknown 07/15/2014 Other reaction(s): Unknown Erythromycin Itching,Rash Low 07/15/2014 Other Reaction(s): Dermatitis, Other (See Comments), pain, Unknown At injection site Administered d/t PPROM, discontinued infusion after rxn Erythromycin Base 12/29/2023 Other Reaction(s): Rash Hydrocodone 12/29/2023 Other Reaction(s): Hallucinating, Hallucinations Other Reaction(s): Hallucinating Other Reaction(s): Hallucinating Other Reaction(s): Hallucinating, Hallucinations Other Reaction(s): Hallucinating Hydrocodone-Acetaminoph en Hallucinations 11/08/2023 Lamotrigine Rash,Swelling Medium 01/28/2022 Other Reaction(s): Unknown Other Reaction(s): Swelling, facial swelling Other Reaction(s): Unknown Other Reaction(s): Swelling, facial swelling Lurasidone 02/02/2023 Other Reaction(s): Other (See Comments) Increased depression/SI Other Reaction(s): Depression Other Reaction(s): Depression, SUICIDAL Increased depression/SI Other Reaction(s): Other (See Comments) Increased depression/SI Other Reaction(s): Depression Other Reaction(s): Depression, SUICIDAL Medications acetaminophen (Tylenol) 325 MG tablet Take 650 mg by mouth every 6 (six) hours if needed 5 Active albuterol HFA 90 mcg/act inhaler Inhale 2 puffs every 4 (four) hours if needed 4 Active Pristiq 25 MG 24 hour tablet Take 25 mg by mouth Daily Active Depakote 250 MG EC tablet Take 250 mg by mouth in the morning and 250 mg in the evening and 250 mg before bedtime. 5 Active ibuprofen 800 MG tablet Take 800 mg by mouth every 8 (eight) hours 4 Active LORazepam (Ativan) 0.5 MG tablet Take 0.5 mg by mouth in the morning. 5 Active magnesium oxide (Mag-Ox) 400 MG tablet Take 400 mg by mouth Daily 5 Active Concerta 36 MG CR tablet Take 36 mg by mouth in the morning. Active riboflavin (Vitamin B-2) 400 MG tablet Take 1 tablet by mouth in the morning. Active Ubrelvy 50 MG tablet Take 50 mg by mouth Daily Active ziprasidone (Geodon) 20 MG capsule Take 20 mg by mouth in the morning. Active ziprasidone (Geodon) 40 MG capsule Take 40 mg by mouth at bedtime Active promethazine (Phenergan) 25 MG tablet Take 25 mg by mouth every 6 (six) hours if needed for nausea or vomiting Active desogestrel-eth inyl estradiol (Apri) 0.15-30 MG-MCG tabletIndicatio ns:Hot flashes,Pelvic pain in female,PCOS (polycystic ovarian syndrome) Take 1 tablet by mouth Daily Pt advised to take continuous and only take active pills 63 tablet 5 5 09/27/19 26 Active Active Problems Problem Noted Date Diagnosed Date Pelvic pain 07/04/2023 Pain of ovary 07/04/2023 Pre-op evaluation 07/04/2023 Encounters Date Type Department Care Team Description 09/26/2024 1:50 PM EDT Office Visit [facility] [address] [facility] [place] [phone] Ron Valenzuela DO Hot flashes; Pelvic pain in female; PCOS (polycystic ovarian syndrome) 09/26/2024 Bamboo flowsheet [facility] [address] [place] [address] Ron Valenzuela DO 09/25/2024 Travel from Last 3 Months Family History Medical History Relation Name Comments Hiatal hernia Daughter Depression Father Hyperlipidemia Father Hypertension Mother Hypothyroidism Mother Cancer Paternal Grandmother Stroke Paternal Grandmother Relation Name Status Comments Brother Alive Daughter Alive Father Alive Mother Alive Paternal Grandmother Social History Tobacco Use Types Packs/Day Years Used Date Smoking Tobacco: Never Smokeless Tobacco: Never Tobacco Cessation:Counseling Given: Not Answered Alcohol Use Standard Drinks/Week Comments Yes 0 [...] Sign Reading Time Taken Comments Blood Pressure 120/70 09/26/2024 2:14 PM EDT Pulse - - Temperature - - Respiratory Rate - - Oxygen Saturation - - Inhaled Oxygen Concentration - - Weight 75.2 kg (165 lb 12.8 oz) 09/26/2024 2:14 PM EDT Height 165.1 cm (5' 5 ) 11/08/2023 11:0 0 AM EDT Body Mass Index 27.59 11/08/2023 11:00 AM EDT Plan of Treatment Upcoming Encounters Date Type Department Care Team (Late st Contact Info) Description 01/23/2025 1:20 PM EDT Office Visit [facility] [address] [place] [phone] Ron Valenzuela DO [address] [place] [address] [place] [address] Health Maintenance Due Date Last Done Comments Influenza Vaccine (#1) 2025 04/28/2021, 2017, 01/27/2016 Procedures Procedure Name Priority Date/Time Associated Diagnosis Comments POCT URINALYSIS DIPSTICK Routine 09/26/2024 2:20 PM EDT Hot flashes Pelvic pain in female from Last 3 Months Results * POCT urinalysis dipstick manually resulted (09/26/2024 2:20 PM EDT) Color, UA Yellow Clarity, UA Clear Glucose, UA Negative Negative - 1999(110) ++++ mg/dL Bilirubin, UA Negative Negative - 4(70) +++ mg/dL Ketones, UA Negative Negative - 160(16) ++++ mg/dL Spec Grav, UA 1.015 1 - 1.03 Blood, UA Negative Negative - 50 Deo/mcL pH, UA 6.0 5 - 9 Protein, UA Negative Negative - 2000(20) ++++ mg/dL Urobilinogen, UA 0.2 0.2 - 12 mg/dL Leukocytes, UA Negative Negative - 500+++ Rosalva/mcL Nitrite, UA Negative Negative - Positive Urine 09/26/2024 2:20 PM EDT Ron Valenzuela DO POINT OF CARE TEST ENTER/EDIT OR DERABLES Final Result from Last 3 Months Insurance [employer] Care Teams Lead Business Systems Analyst Relationship Specialty Start Date End Date Tom Cruz MD PCP - General Internal Medicine 11/01/22
--- OUTSIDE RECORDS SUMMARY | 2024-12-13 17:07 | XMS_ITS | Encounter Summary ---
Author Organization [facility] tem Address [id number] [address] [place] [address] Care Team Providers Care Railroad Commissioner Name Role Phone Tom Cruz Primary Care Provider [phone] Encounter Details Date Type Department Care Team (Late st Contact Info) Description 11/07/2023 Orders Only [facility] - Family Medicine [address] [place] [phone] External, Scanning Provider Social History Tobacco Use [...] often do you attend chur ch or scientologist services? Patient declined 04/26/2022 Do you belong to any clubs o r organizations such as druze groups, unions, fraternal or athletic groups, or [...] 04/26/2022 PHQ-2 Answer Date Recorded Total Score 1 07/07/2023 [facility] Occupat ional Health - Occupational [...] got money to buy more. Never True 07/07/2023 Within the past 12 months th e food we bought just didn't last and we didn't have money to get more. Never True 07/07/2023 Purpose - Life Answer Date Recorded I [...] PM EST Office Visit [facility] [address] [place] [phone] Javier Gurrola MD [address] [place] [phone] documented as of this encounter Procedures Procedure Name Priority Date/Time Associated Diagnosis Comments US PELVIC WITH TRANSVAGINAL Routine 11/06/2023 1:18 PM EDT US RETROPERITONEAL COMPLETE WITH DUPLEX Routine 11/06/2023 1:03 PM EDT US PELVIC WITH TRANSVAGINAL Routine 11/06/2023 1:03 PM EDT XR ABDOMEN AP 1 VW Routine 11/06/2023 1: 03 PM EDT US RETROPERITONEAL COMPLETE WITH DUPLEX Routine 11/05/2023 1:16 PM EDT US RETROPERITONEAL COMPLETE WITH DUPLEX Routine 11/05/2023 1:05 PM EDT XR ABDOMEN AP 1 VW Routine 11/05/2023 1: 05 PM EDT US PELVIC WITH TRANSVAGINAL Routine 11/05/2023 12:57 PM EDT documented in this encounter Results * Ultrasound pelvic with transvaginal (11/06/2023 1:18 PM EDT) Anatomical Region Laterality Modality Body, Pelvis Ultrasound us Scanning Provider External IMG US ORDERABLES Fin al Result * X-ray abdomen ap 1 view (11/06/2023 1:03 PM EDT) Anatomical Region Laterality Modality Body, Abdomen N/A Computed Radiogr aphy us Scanning Provider External IMG DIAGNOSTIC IMAGIN G ORDERABLES Final Result * Ultrasound retroperitoneal complete with duplex (11/06/2023 1:03 PM EDT) Anatomical Region Laterality Modality Body Ultrasound us Scanning Provider External IMG US ORDERABLES Fin al Result * Ultrasound pelvic with transvaginal (11/06/2023 1:03 PM EDT) Anatomical Region Laterality Modality Body, Pelvis Ultrasound us Scanning Provider External IMG US ORDERABLES Fin al Result * Ultrasound retroperitoneal complete with duplex (11/05/2023 1:16 PM EDT) Anatomical Region Laterality Modality Body Ultrasound us Scanning Provider External IMG US ORDERABLES Fin al Result * Ultrasound retroperitoneal complete with duplex (11/05/2023 1:05 PM EDT) Anatomical Region Laterality Modality Body Ultrasound us Scanning Provider External IMG US ORDERABLES Fin al Result * X-ray abdomen ap 1 view (11/05/2023 1:05 PM EDT) Anatomical Region Laterality Modality Body, Abdomen N/A Computed Radiogr aphy us Scanning Provider External IMG DIAGNOSTIC IMAGIN G ORDERABLES Final Result * Ultrasound pelvic with transvaginal (11/05/2023 12:57 PM EDT) Anatomical Region Laterality Modality Body, Pelvis Ultrasound us Scanning Provider External IMG US ORDERABLES Fin al Result documented in this encounter Visit Diagnoses Not on filedocumented in this encounter Additional Health Concerns Infection Onset Date Last Indicated Resolved Time COVID-19 Rule-Out 04/21/2024 04/21/2024 04/21/2024 8:21 PM EST Respiratory Rule-Out 10/04/2024 10/04/2024 025 1:35 AM EDT Assessment Noted Time PHQ-9 Depression Total Score: 1 07/07/19 24 10:50 AM EST documented as of this encounter Care Teams Railroad Commissioner Relationship Specialty Start Date End Date Tom Cruz DO [address] [place] [address] PCP - General Internal Medicine 12/19/22 documented as of this encounter
--- OUTSIDE RECORDS SUMMARY | 2024-12-13 17:07 | XMS_ITS | Encounter Summary ---
Author Organization [facility] tem Address [id number] [address] [place] [address] Care Team Providers Care Grocery Team Member Name Role Phone Tom Cruz Primary Care Provider [phone] Encounter Details Date Type Department Care Team (Late st Contact Info) Description 09/16/2023 Orders Only [facility] - Family Medicine [address] [place] [phone] External, Scanning Provider Social History Tobacco Use [...] often do you attend chur ch or congregational services? Patient declined 04/26/2022 Do you belong to any clubs o r organizations such as temple groups, unions, fraternal or athletic groups, or [...] Answer Date Recorded Total Score 1 07/07/2023 [facility] of Occupat ional Health - [...] PM EST Office Visit [facility] [address] [place] [phone] Javier Gurrola MD [address] [place] [address] documented as of this encounter Procedures Procedure Name Priority Date/Time Associated Diagnosis Comments US PELVIC WITH TRANSVAGINAL Routine 09/15/2023 11:07 AM EDT documented in this encounter Results * Ultrasound pelvic with transvaginal (09/15/2023 11:07 AM EDT) Anatomical Region Laterality Modality Body, Pelvis [...] documented as of this encounter Care Teams Grocery Team Member Relationship Specialty Start Date End Date Tom Cruz DO [address] [place] [address] PCP - General Internal Medicine 12/19/22 documented as of this encounter
--- OUTSIDE RECORDS SUMMARY | 2024-12-13 17:07 | XMS_ITS | Patient Health Record ---
Author Organization [facility] [place] Address [address] [place] [address] Care Team Providers Care Family Law Mediator Name Role Phone None, Unknown or Primary Care Provider Unavailab le Reason For Referral No Information Medications Medication SIG (Take, Route, Frequency, Duration) Notes Start Date End Date Status Reglan 5 MG 1 tablet before meal s Orally Twice a day for 30 day(s) 10/16/2019 Active Social History Tobacco Use: Social History Observation Description Date Details (start date - stop date) Never Smoker NA - NA Tobacco Use/Smoking Question Answer Notes Patient is a nonsmoker Problems Problem Type SNOMED Code ICD Code Onset Dates Problem Status W/U Status Risk Notes Problem 73118787 Epigastric abdominal pain (R10.13) Active confirmed Problem 74443267 Non-intractable vomiting with nausea, unspecified vomiting type (R11.2) Active confirmed Problem 532499630 Caffeine abuse, 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 Problem 663666557 Epigastric abdominal tenderness with rebound tenderness (R10.826) Active confirmed Plan Of Treatment Pending Test Test Name Order Date Upper gastrointestinal (UGI) series 08/28 Gastric Emptying Study 09/14/2019 Esophagram 09/14/2019 Insurance Providers Payer Name Payer Address Payer Phone Subscriber Number Group Number Insured Name Patient Relationship to Insured Coverage Start Date Coverage End Date [employer] ACCESS PPO PLUS LOCAL PLAN [address] [place] [address] [id number] Ana Gaitan Child - Insured has Financial Responsibility Medical (General) History Surgical History Surgery Date(Month/Year)
--- OUTSIDE RECORDS SUMMARY | 2024-12-13 17:07 | XMS_ITS | Encounter Summary ---
Author Organization [facility] [facility] tem Address [id number] [address] [place] [address] Care Team Providers Care Supervisor Pre Wave Name Role Phone Tom Cruz DO Primary Care Provider [phone] Encounter Details Date Type Department Care Team (Late st Contact Info) Description 07/29/2023 Telephone [facility] - Family Medicine [address] [place] [phone] Tom Cruz DO [address] [place] [address] Social History Tobacco Use Types Packs/Day Years [...] any clubs o r organizations such as advent groups, unions, fraternal or athletic groups, or [...] Answer Date Recorded Total Score 1 07/07/2023 [facility] Occupat ional [facility] - Occupational Stress Questionnaire Answer Date Recorded [...] Recorded Do you need help finding a [place] [facility] and/or a training program? [...] * Telephone Encounter - Amy Peterson - 07/29/2023 7:58 AM EST ----- Message from Tom Cruz DO sent at 01/27/2023 4:20 PM EDT ----- Abdominal recheck * Telephone Encounter - Amy Peterson - 07/29/2023 7:58 AM EST Patient was just here 07/07 does she need to come back this soon? * Telephone Encounter - Tom Cruz DO - 07/29/2023 7:58 AM EST No documented in this encounter Plan of Treatment Upcoming Encounters Date Type Department Care Team (Late st Contact Info) Description 05/06/2025 1:15 PM EST Office Visit [facility] [address] [place], [place] [address] [place] [address] Javier Gurrola MD [address] [place] [address] documented as of this encounter Visit Diagnoses Not on filedocumented in this encounter Additional Health Concerns Infection Onset Date Last Indicated Resolved Time COVID-19 Rule-Out 04/21/2024 04/21/2024 04/21/2024 8:21 PM EST Respiratory Rule-Out 10/04/2024 10/04/2024 025 1:35 AM EDT Assessment Noted Time PHQ-9 Depression Total Score: 1 07/07/19 24 10:50 AM EST documented as of this encounter Care Teams Supervisor Pre Wave Relationship Specialty Start Date End Date Tom Cruz DO [address] [place] [address] PCP - General Internal Medicine 12/19/22 documented as of this encounter
--- OUTSIDE RECORDS SUMMARY | 2024-12-13 17:07 | XMS_ITS | Encounter Summary ---
Author Organization [facility] [facility] tem Address [id number] [address] [place] [address] Care Team Providers Care Chief Station Engineer Name Role Phone Tom Cruz DO Primary Care Provider [phone] Encounter Details Date Type Department Care Team (Late st Contact Info) Description 01/10/2024 Orders Only [facility] - Family Medicine [address] [place] [phone] Tom Cruz DO [address] [place] [address] Mild intermittent asthma, unspecified whether complicated (Primary Dx) Social History Tobacco Use Types [...] How often do you attend chur or evangelical services? Patient declined 04/26/2022 Do you belong to any clubs o r organizations such as mu-ism groups, unions, fraternal or athletic groups, or [...] PHQ-2 Answer Date Recorded Total Score 0 01/10/2024 [facility] Occupat ional [facility] - Occupational Stress Questionnaire Answer Date [...] got money to buy more. Never True 01/10/2024 Within the past 12 months th e food we bought just didn't last and we didn't have money to get more. Never True 01/10/2024 Purpose - Life Answer Date Recorded I [...] EST Office Visit [facility] [address] [place] [phone] Javier Gurrola MD [address] [place] [address] documented as of this encounter Visit Diagnoses Diagnosis Mild intermittent asthma, unspecified whether complicated- Primary documented in this encounter Additional Health Concerns Infection Onset Date Last Indicated Resolved Time COVID-19 Rule-Out 04/21/2024 04/21/2024 04/21/2024 8:21 PM EST Respiratory Rule-Out 10/04/2024 10/04/2024 025 1:35 AM EDT Assessment Noted Time PHQ-9 Depression Total Score: 0 01/10/20 24 3:53 PM EDT A Body Mass Index follow-up plan has been documented for the patient 01/10/2024 4:11 PM EDT documented as of this encounter Care Teams Chief Station Engineer Relationship Specialty Start Date End Date Tom Cruz DO [address] [place] [address] PCP - General Internal Medicine 12/19/22 documented as of this encounter
--- OUTSIDE RECORDS SUMMARY | 2024-12-13 17:07 | XMS_ITS | Encounter Summary ---
Author Organization [facility] tem Address [id number] [address] [place] [address] Care Team Providers Care List Of First Job Ideas Name Role Phone Tom Cruz Primary Care Provider [phone] Encounter Details Date Type Department Care Team (Late st Contact Info) Description 05/19/2023 Orders Only [facility] - Family Medicine [address] [place] [phone] External, Scanning Provider Social History Tobacco Use [...] often do you attend chur ch or rastafari services? Patient declined 04/26/2022 Do you belong to any clubs o r organizations such as yarsanism groups, unions, fraternal or athletic groups, or [...] Answer Date Recorded Total Score 0 05/09/2023 [facility] of Occupat ional Health - [...] EST Office Visit [facility] [address] [place] [phone] Javier Gurrola MD [address] [place] [address] documented as of this encounter Visit Diagnoses Not on filedocumented in this encounter Additional Health Concerns Infection Onset Date Last Indicated Resolved Time COVID-19 Rule-Out 04/21/2024 04/21/2024 04/21/2024 8:21 PM EST Respiratory Rule-Out 10/04/2024 10/04/2024 025 1:35 AM EDT Assessment Noted Time PHQ-9 Depression Total Score: 0 05/09/20 4:08 PM EST documented as of this encounter Care Teams List Of First Job Ideas Relationship Specialty Start Date End Date Tom Cruz DO [address] [place] [address] PCP - General Internal Medicine 12/19/22 documented as of this encounter
--- OUTSIDE RECORDS SUMMARY | 2024-12-13 17:08 | XMS_ITS | Encounter Summary ---
Author Organization [facility] Address [address] [facility] [place] [address] Care Team Providers Care Manager Business Information Name Role Phone Matthew Lemus MD Primary Care Provider [phone] Encounter Details Date Type Department Care Team (Late st Contact Info) Description 11/06/2023 Clinisync Result Encounter [facility] External Department Unsolicited Casey Valenzuela, DO [address] [place], [place] [phone] Social History Tobacco Use Types Packs/Day Years [...] 01/23/2025 1:20 PM EDT Office Visit [facility] [address] [place] [phone] Casey Valenzuela, DO [address] [place], [place] [phone] documented as of this encounter Procedures Procedure Name Priority Date/Time Associated Diagnosis Comments US PELVIS W/ TRANSVAGINAL 11/06/2023 2:51 AM EDT documented in this encounter Results * US PELVIS W/ TRANSVAGINAL (11/06/2023 2:51 AM EDT) Anatomical Region Laterality Modality Other 11/06/2023 2:51 AM EDT Narrative 11/06/2023 2:53 [place] [address] Ultrasound Report Signed Patient: KAVITA CAICEDO MR#: [id number] : 1995 Acct:[id number] Age/Sex: 28 / F ADM Date: 11/05/23 Loc: US Attending Dr: Casey Valenzuela D.O. Ordering Physician: Casey Valenzuela D.O. Date of Service: 11/05/23 Procedure(s): US pelvis w/ transvaginal Accession Number(s): [id number] cc: Casey Valenzuela D.O.; MATTHEW LEMUS [place] [id number] Patient Name: KAVITA CAICEDO MRN: [id number] date: 1995 Sex: F Assigned Patient Location: US Current Patient Location: ER Accession/Order Number: [id number] Exam Date: 11/05/2023 12:59 Report Date: 11/06/2023 02:51 At the request of: CASEY VALENZUELA Procedure: US pelvis w/ transvaginal EXAM: US pelvis w/ transvaginal HISTORY: Pelvic pain R10.2 COMPARISON: Pelvic ultrasound examination dated 09/15/2023. TECHNIQUE: Real time pelvic ultrasound examination was performed using Duplex Doppler by a transabdominal approach. A transvaginal examination was performed for better evaluation of the ovaries. FINDINGS: The uterus is normal in size and echogenicity measuring 7.6 cm in length. No focal myometrial lesions are seen. The endometrium is within normal limits with the stripe measuring up to 0.4 cm in thickness. An IUD is in place. The right ovary measures 3.2 x 1.7 x 1.7 cm, and the left ovary measures 2.3 x 1.9 x 1.6 cm. Blood flow is seen in both ovaries. There is no significant free fluid. US/US pelvis w/ transvaginal IMPRESSION: 1. An IUD is in place. 2. The uterus and ovaries appear within normal limits. Electronically authenticated by: Jeffrey WARE Date: 11/06/2023 02:51 Dictated By: Sumanth Ware M.D. Signed By: 11/06/23252 DD/ 0 TD/TT: Real Estate Rental Agent: Procedure Note Radiology, Radiologist, - 11/06/2023 [place] [address] Ultrasound Report Signed Patient: KAVITA CAICEDO LMR#: [id number] : 1995Acct:[id number] Age/Sex: 28 / FADM Date: 11/05/23 Loc: US Attending Dr: Casey Valenzuela D.O. Ordering Physician: Casey Valenzuela D.O. Date of Service: 11/05/23 Procedure(s): US pelvis w/ transvaginal Accession Number(s): [id number] cc: Casey Valenzuela D.O.; MATTHEW LEMUS [place] [address] Patient Name: KAVITA CAICEDO MRN: [id number] date: 1995 Sex: F Assigned Patient Location: US Current Patient Location: ER Accession/Order Number: [id number] Exam Date: 11/05/2023 12:59 Report Date: 11/06/2023 02:51 At the request of: CASEY VALENZUELA Procedure: US pelvis w/ transvaginal EXAM: US pelvis w/ transvaginal HISTORY: Pelvic pain R10.2 COMPARISON: Pelvic ultrasound examination dated 09/15/2023. TECHNIQUE: Real time pelvic ultrasound examination was performed usingDuplex Doppler by a transabdominal approach. A transvaginal examination wasperformed for better evaluation of the ovaries. FINDINGS: The uterus is normal in size and echogenicity measuring 7.6 cm in length.No focal myometrial lesions are seen. The endometrium is within normal limits with the stripe measuring up to 0.4 cm in thickness. An IUD is in place. The right ovary measures 3.2 x 1.7 x 1.7 cm, and the left ovary measures2.3 x 1.9 x 1.6 cm. Blood flow is seen in both ovaries. There is no significant free fluid. US/US pelvis w/ transvaginal IMPRESSION: 1. An IUD is in place. 2. The uterus and ovaries appear within normal limits. Electronically authenticated by: Jeffrey WARE Date: 11/06/2023 02:51 Dictated By: Sumanth Ware M.D. Signed By:11/06/23 0253 DD/ 0251 TD/TT: Real Estate Rental Agent: us Casey Bianca DO [facility] Final Result documented in this encounter Visit Diagnoses Not on filedocumented in this encounter Care Teams Manager Business Information Relationship Specialty Start Date End Date Matthew Lemus MD PCP - General Internal Medicine 11/01/22 documented as of this encounter
--- OUTSIDE RECORDS SUMMARY | 2024-12-13 17:08 | XMS_ITS | Encounter Summary ---
Author Organization [facility] Address [address] [place] [address] Care Team Providers Care Operator Coating Furnace Name Role Phone Tom Cruz MD Primary Care Provider [phone] Encounter Details Date Type Department Care Team (Late st Contact Info) Description 11/02/2022 Abstract [facility] OB [address] [place] [address] Ron Valenzuela DO [address] [place], [place] [id number] Social History Tobacco Use Types Packs/Day Years [...] 01/23/2025 1:20 PM EDT Office Visit [facility] [place] [address] [place] [address] Ron Valenzuela, [address] [place], [place] [phone] documented as of this encounter Visit Diagnoses Not on filedocumented in this encounter Care Teams Operator Coating Furnace Relationship Specialty Start Date End Date Tom Cruz MD PCP - General Internal Medicine 11/01/22 documented as of this encounter
--- OUTSIDE RECORDS SUMMARY | 2024-12-13 17:08 | XMS_ITS | Encounter Summary ---
Author Organization [facility] Address [facility] [id number] [address] [place] [address] Care Team Providers Care Transition Mgr Name Role Phone Tom Cruz Primary Care Provider [phone] Encounter Details Date Type Department Care Team (Late st Contact Info) Description 12/09/2023 Orders Only [facility] - Family Medicine [address] [place] [phone] Mar Perez CMA Social History Tobacco Use [...] often do you attend chur ch or quaker services? Patient declined 04/26/2022 Do you belong [...] Answer Date Recorded Total Score 0 12/06/2023 [facility] of Occupat ional Health - Occupational Stress [...] EST Office Visit [facility] [address] [place] [phone] Javier Gurrola MD [address] [place] [address] documented as of this encounter Visit Diagnoses Not on filedocumented in this encounter Additional Health Concerns Infection Onset Date Last Indicated Resolved Time COVID-19 Rule-Out 04/21/2024 04/21/2024 04/21/2024 8:21 PM EST Respiratory Rule-Out 10/04/2024 10/04/2024 025 1:35 AM EDT Assessment Noted Time PHQ-9 Depression Total Score: 0 12/06/19 24 8:37 AM EDT documented as of this encounter Care Teams Transition Mgr Relationship Specialty Start Date End Date Tom Cruz DO [address] [place] [address] PCP - General Internal Medicine 12/19/22 documented as of this encounter
--- OUTSIDE RECORDS SUMMARY | 2024-12-13 17:08 | XMS_ITS | Encounter Summary ---
Author Organization [employer] s tem Address [id number] [address] [place] [address] Care Team Providers Care Instrumentation Engineer Name Role Phone Tom Cruz Primary Care Provider Encounter Details Date Type Department Care Team (Late st Contact Info) Description 11/29/2023 Telephone [facility] - Family Medicine [address] [place] [phone] Shasta Iverson, NIKOLAS Social History Tobacco Use Types Packs/Day Years [...] often do you attend chur ch or cheondoism services? Patient declined 04/26/2022 Do you belong to any clubs o r organizations such as mandaen groups, unions, fraternal or athletic groups, or [...] Answer Date Recorded Total Score 0 11/21/2023 [facility] of Occupat ional Health - Occupational Stress [...] encounter Miscellaneous Notes * Telephone Encounter - Shasta Iverson CMA - 11/29/2023 1:48 PM EDT Pt called back and wanted to know if you could send something for the pain till she gets back from vacation ? * Telephone Encounter - Tom Cruz DO - 11/29/2023 1:48 PM EDT Message noted. Patient is being directly messaged in a separate thread. documented in this encounter Plan of Treatment Upcoming Encounters Date Type Department Care Team (Late st Contact Info) Description 05/06/2025 1:15 PM EST Office Visit [facility] [address] [place] [phone] Javier Gurrola MD [address] [place] [phone] documented as of this encounter Visit Diagnoses Not on filedocumented in this encounter Additional Health Concerns Infection Onset Date Last Indicated Resolved Time COVID-19 Rule-Out 04/21/2024 04/21/2024 04/21/2024 8:21 PM EST Respiratory Rule-Out 10/04/2024 10/04/2024 025 1:35 AM EDT Assessment Noted Time PHQ-9 Depression Total Score: 0 11/21/19 24 4:32 PM EDT documented as of this encounter Care Teams Instrumentation Engineer Relationship Specialty Start Date End Date Tom Cruz DO [address] [place] [address] PCP - General Internal Medicine 12/19/22 documented as of this encounter
--- OUTSIDE RECORDS SUMMARY | 2024-12-13 17:08 | XMS_ITS | Encounter Summary ---
Author Organization [facility] Address [address] [place] [address] Care Team Providers Care Oracle Ebs Consultant Name Role Phone Tom Cruz MD Primary Care Provider [phone] Encounter Details Date Type Department Care Team (Late st Contact Info) Description 11/26/[address] [facility] OB [address] [place] [address] Ron Valenzuela DO [address] [place], [place] [address]Juancarlos [place], [facility] Social History Tobacco Use Types Packs/Day [...] suspected to have Coronavirus/COVID-19? No / Unsure 11/09/2022 2:05 PM EDT documented as of this encounter Plan of Treatment Upcoming Encounters Date Type Department Care Team (Late Contact Info) Description 01/23/2025 1:20 PM EDT Office Visit [facility] OB [address] [place] [address] Bianca, Ron, [address] [place] [address] documented as of this encounter Visit Diagnoses Not on filedocumented in this encounter Care Teams Oracle Ebs Consultant Relationship Specialty Start Date End Date Tom Cruz MD PCP - General Internal Medicine 11/01/22 documented as of this encounter
--- OUTSIDE RECORDS SUMMARY | 2024-12-13 17:08 | XMS_ITS | Encounter Summary ---
Author Organization [facility] Address [address] [facility] [place] [address] Care Team Providers Care Meat Lugger Name Role Phone Matthew Lemus MD Primary Care Provider [phone] Encounter Details Date Type Department Care Team (Late st Contact Info) Description 06/21/2023 Clinisync Result Encounter [facility] External Department Unsolicited Casey Valenzuela, DO [address] [place], [place] [phone] Social History Tobacco Use Types Packs/Day Years Used Date Smoking Tobacco: Never Smokeless Tobacco: Never Alcohol Use Standard Drinks/Week Comments Yes 0 (1 standard drink = 0.6 oz pure alcohol) occasional alcohol use; caffeine: 1-2 cups/day Comments Unknown Sex and Gender Information Value Date Recorded Sex Assigned at Not on file Legal Sex Female 11:19 PM EDT Gender Identity Not on file Sexual Orientation Not on file documented as of this encounter Plan of Treatment Upcoming Encounters Date Type Department Care Team (Late st Contact Info) Description 01/23/2025 1:20 PM EDT Office Visit [facility] OB [address] [place] [phone] Casey Valenzuela, DO [address] [place], [place] [phone] documented as of this encounter Procedures Procedure Name Priority Date/Time Associated Diagnosis Comments US PELVIS W/ TRANSVAGINAL 06/21/2023 10:15 AM EST documented in this encounter Results * US PELVIS W/ TRANSVAGINAL (06/21/2023 10:15 AM EST) Anatomical Region Laterality Modality Other 06/21/2023 10:1 5 AM EST Narrative 06/21/2023 10:18 [place] [address] Ultrasound Report Signed Patient: KAVITA CAICEDO MR#: [id number] : 1995 Acct:[id number] Age/Sex: 28 / F ADM Date: 06/21/23 Loc: US Attending Dr: Casey Valenzuela D.O. Ordering Physician: Casey Valenzuela D.O. Date of Service: 06/21/23 Procedure(s): US pelvis w/ transvaginal Accession Number(s): [id number] cc: Casey Valenzuela D.O.; MATTHEW LEMUS [place] [id number] Patient Name: KAVITA CAICEDO MRN: [id number] date: 1995 Sex: F Assigned Patient Location: Current Patient Location: Accession/Order Number: [id number] Exam Date: 06/21/2023 09:03 Report Date: 06/21/2023 10:15 At the request of: CASEY VALENZUELA Procedure: US pelvis w/ transvaginal EXAMINATION: US pelvis w/ transvaginal HISTORY: LLQ PAIN COMPARISON: No relevant comparison available. FINDINGS: The uterus is normal in size, contour and myometrial echotexture measuring 7.3 x 3.1 x 4.9 cm. The uterus is anteverted and anteflexed. Endometrium measures 3 mm. The right ovary is not visualized The left ovary measures 2.5 x 1.3 x 1.7 cm. Normal color and Doppler flow. Normal subcentimeter follicles No free fluid US/US pelvis w/ transvaginal IMPRESSION: Nonvisualization of the right ovary Otherwise normal exam Electronically authenticated by: BREA VARGAS Date: 06/21/2023 10:15 Dictated By: Brea Vargas M.D. Signed By: 06/21/23 1018 DD/ 1015 TD/TT: Pipeline Gang Supervisor: Procedure Note Radiology, Radiologist, MD - 06/21/2023 [place] [address] Ultrasound Report Signed Patient: KAVITA CAICEDO LMR#: [id number] : 1995Acct:[id number] Age/Sex: 28 / FADM Date: 06/21/23 Loc: US Attending Dr: Casey Valenzuela D.O. Ordering Physician: Casey Valenzuela D.O. Date of Service: 06/21/23 Procedure(s): US pelvis w/ transvaginal Accession Number(s): [id number] cc: Casey Valenzuela D.O.; MATTHEW LEMUS [place] [id number] Patient Name: KAVITA CAICEDO MRN: [id number] date: 1995 Sex: F Assigned Patient Location: Current Patient Location: Accession/Order Number: [id number] Exam Date: 06/21/2023 09:03 Report Date: 06/21/2023 10:15 At the request of: CASEY VALENZUELA Procedure: US pelvis w/ transvaginal EXAMINATION: US pelvis w/ transvaginal HISTORY: LLQ PAIN COMPARISON: No relevant comparison available. FINDINGS: The uterus is normal in size, contour and myometrial echotexture measuring7.3 x 3.1 x 4.9 cm. The uterus is anteverted and anteflexed. Endometrium measures 3 mm. The right ovary is not visualized The left ovary measures 2.5 x 1.3 x 1.7 cm. Normal color and Doppler flow. Normal subcentimeter follicles No free fluid US/US pelvis w/ transvaginal IMPRESSION: Nonvisualization of the right ovary Otherwise normal exam Electronically authenticated by: BREA VARGAS Date: 06/21/2023 10:15 Dictated By: Brea Vargas M.D. Signed By:06/21/23 1018 DD/ 1015 TD/TT: Pipeline Gang Supervisor: us Casey Mccordo DO [facility] Final Result documented in this encounter Visit Diagnoses Not on filedocumented in this encounter Care Teams Meat Lugger Relationship Specialty Start Date End Date Matthew Lemus MD PCP - General Internal Medicine 11/01/22 documented as of this encounter
--- OUTSIDE RECORDS SUMMARY | 2024-12-13 17:08 | XMS_ITS | Encounter Summary ---
[id number] [address] [place] [address] Care Team Providers Care Manager Payroll Name Role Phone Tom Cruz DO Primary Care Provider [phone] Encounter Details Date Type Department Care Team (Late st Contact Info) Description 11/23/2023 Orders Only [facility] - Family Medicine [address] [place] [phone] Tom Cruz DO [address] [place] [address] Social History Tobacco Use Types Packs/Day Years [...] Answer Date Recorded Total Score 0 11/21/2023 [facility] of Occupat ional Health [...] Recorded Do you need help finding a [facility] and/or a training program? [...] EST Office Visit [facility] [address] [place] [phone] Javier Gurrola MD [address] [place] [address] documented as of this encounter Visit Diagnoses Not on filedocumented in this encounter Additional Health Concerns Infection Onset Date Last Indicated Resolved Time COVID-19 Rule-Out 04/21/2024 04/21/2024 04/21/2024 8:21 PM EST Respiratory Rule-Out 10/04/2024 10/04/2024 025 1:35 AM EDT Assessment Noted Time PHQ-9 Depression Total Score: 0 11/21/19 24 4:32 PM EDT documented as of this encounter Care Teams Manager Payroll Relationship Specialty Start Date End Date Tom Cruz DO [address] [place] [address] PCP - General Internal Medicine 12/19/22 documented as of this encounter
--- OUTSIDE RECORDS SUMMARY | 2024-12-13 17:08 | XMS_ITS | Encounter Summary ---
Author Organization [facility] Address [address] [facility] [place] [address] Care Team Providers Care Doctor Of Dental Medicine Name Role Phone Tom Cruz MD Primary Care Provider [phone] Reason for Visit * Reason Comments Med Refill Encounter Details Date Type Department Care Team (Late st Contact Info) Description 07/10/2023 Refill [facility] OB [address] [facility] [phone] Ron Valenzuela, [address] [facility] [address] [place], [place] [phone] Heartburn Social History Tobacco Use Types Packs/Day Years [...] encounter Miscellaneous Notes * Telephone Encounter - Elisha Solorzano LPN - 07/12/2023 12:56 PM EST Approving, but needs appt for additional refills. documented in this encounter Plan of Treatment Upcoming Encounters Date Type Department Care Team (Late st Contact Info) Description 01/23/2025 1:20 PM EDT Office Visit [facility] OB [address] [facility] [place] [phone] Ron Valenzuela DO [address] [facility] [place] [address] documented as of this encounter Visit Diagnoses Diagnosis Heartburn documented in this encounter Care Teams Doctor Of Dental Medicine Relationship Specialty Start Date End Date Tom Cruz MD PCP - General Internal Medicine 11/01/22 documented as of this encounter
--- OUTSIDE RECORDS SUMMARY | 2024-12-13 17:08 | XMS_ITS | Encounter Summary ---
Author Organization [employer] [facility] Address [facility] [id number] [address] [place] [address] Care Team Providers Care High School Foreign Language Teacher Name Role Phone Tom Cruz DO Primary Care Provider [phone] Reason for Referral * Rehabilitation - Outpatient (Routine) - Closed Specialty Diagnoses / Procedures Referred By Nolan boyd Referred To Contact Rehabilitation Diagnoses Bilateral thoracic back pain, unspecified chronicity Tom Cruz DO [address] [place] [address] Phone: tel: fax: [facility] [address] [place] [address] Phone: tel: Referral ID Status Reason Start Date Expiration Date V isits Requested Visits Authorized [id number] Closed Specialty Services Required 11/29/2023 05/31/2024 8 8 Encounter Details Date Type Department Care Team (Late st Contact Info) Description 11/29/2023 Orders Only [facility] Internal [facility] - Family Medicine [address] [place] [address] Tom Cruz DO [address] [place] [address] Bilateral thoracic back pain, unspecified chronicity (Primary Dx) Social History Tobacco Use Types [...] How often do you attend chur or shinto services? Patient declined 04/26/2022 Do you belong [...] Answer Date Recorded Total Score 0 11/21/2023 [facility] of Occupat ional Health - Occupational Stress [...] PM EST Office Visit [facility] [address] [place] [phone] Javier Gurrola MD [address] [place] [address] Scheduled Referrals Name Type Priority Associated Diagnoses Order Schedule Ambulatory referral to Physical Therapy Outpatient Referral Routine Bilateral thoracic back pain, unspecified chronicity 1 Occurrences starting 11/29/2023 until 11/28/2024 documented as of this encounter Visit Diagnoses Diagnosis Bilateral thoracic back pain, unspecified chronicity- Primary documented in this encounter Additional Health Concerns Infection Onset Date Last Indicated Resolved Time COVID-19 Rule-Out 04/21/2024 04/21/2024 04/21/2024 8:21 PM EST Respiratory Rule-Out 10/04/2024 10/04/2024 025 1:35 AM EDT Assessment Noted Time PHQ-9 Depression Total Score: 0 11/21/19 24 4:32 PM EDT documented as of this encounter Care Teams High School Foreign Language Teacher Relationship Specialty Start Date End Date Tom Cruz DO [address] [place] [address] PCP - General Internal Medicine 12/19/22 documented as of this encounter
--- OUTSIDE RECORDS SUMMARY | 2024-12-13 17:08 | XMS_ITS | Encounter Summary ---
Author Organization [facility] [employer] s tem Address [id number] [address] [place] [address] Care Team Providers Care Control Supervisor Name Role Phone Tom Cruz DO Primary Care Provider [phone] Encounter Details Date Type Department Care Team (Late st Contact Info) Description 11/30/2023 Orders Only [facility] - Family Medicine [address] [place] [address] Tom Cruz DO [address] [place] [address] Somatic dysfunction of cervical region; Somatic dysfunction of thoracic region Social History Tobacco Use Types Packs/Day Years [...] How often do you attend chur or zoroastrian services? Patient declined 04/26/2022 Do [...] Answer Date Recorded Total Score 0 11/21/2023 [facility] of Occupat ional Health - [...] Recorded Do you need help finding a [facility] and/or a training program? [...] EST Office Visit [facility] [address] [place] [phone] Javier Gurrola MD [address] [place], [place] [phone] documented as of this encounter Visit Diagnoses Diagnosis Somatic dysfunction of cervical region Nonallopathic lesion of cervical region, not elsewhere classified Somatic dysfunction of thoracic region Nonallopathic lesion of thoracic region, not elsewhere classified documented in this encounter Additional Health Concerns Infection Onset Date Last Indicated Resolved Time COVID-19 Rule-Out 04/21/2024 04/21/2024 04/21/2024 8:21 PM EST Respiratory Rule-Out 10/04/2024 10/04/2024 025 1:35 AM EDT Assessment Noted Time PHQ-9 Depression Total Score: 0 11/21/19 4:32 PM EDT documented as of this encounter Care Teams Control Supervisor Relationship Specialty Start Date End Date Tom Cruz DO [address] [place] [address] PCP - General Internal Medicine 12/19/22 documented as of this encounter
--- OUTSIDE RECORDS SUMMARY | 2024-12-13 17:08 | XMS_ITS | Encounter Summary ---
Author Organization [employer] s tem Address [facility] [id number] [address] [place] [address] Care Team Providers Care Airline Mechanic Name Role Phone Tom Cruz Primary Care Provider [phone] Encounter Details Date Type Department Care Team (Late st Contact Info) Description 12/06/2023 Telephone [facility] - Family Medicine [address] [place] [phone] Jeremie Turner CMA Social History Tobacco Use [...] often do you attend chur ch or jainism services? Patient declined 04/26/2022 Do you belong [...] Answer Date Recorded Total Score 0 12/06/2023 [facility] of Occupat ional Health - Occupational Stress [...] Telephone Encounter - Jeremie Turner CMA - 12/06/2023 9:42 AM EDT Pt would like to see if you would write a note and state pt has been compliant with all her mental heal care. So pt has it for her record with all that she is going through right now. Even if it is in her My Chart or a message. Thank you. * Telephone Encounter - Tom Cruz DO - 12/06/2023 9:42 AM EDT Message noted. A letter is written and available in [employer]. * Telephone Encounter - Mar Perez CMA - 12/06/2023 9:42 AM EDT Sent this to her through [employer] documented in this encounter Plan of Treatment Upcoming Encounters Date Type Department Care Team (Late st Contact Info) Description 05/06/2025 1:15 PM EST Office Visit [facility] [address] [place], [place] [address] [facility] [place] [phone] Javier Gurrola MD [address] [place] [address] documented as of this encounter Visit Diagnoses Not on filedocumented in this encounter Additional Health Concerns Infection Onset Date Last Indicated Resolved Time COVID-19 Rule-Out 04/21/2024 04/21/2024 04/21/2024 8:21 PM EST Respiratory Rule-Out 10/04/2024 10/04/2024 025 1:35 AM EDT Assessment Noted Time PHQ-9 Depression Total Score: 0 12/06/19 24 8:37 AM EDT documented as of this encounter Care Teams Airline Mechanic Relationship Specialty Start Date End Date Tom Cruz DO [address] [place] [phone] PCP - General Internal Medicine 12/19/22 documented as of this encounter
--- OUTSIDE RECORDS SUMMARY | 2024-12-13 17:08 | XMS_ITS | Encounter Summary ---
Author Organization [facility] Address [address] [place] [address] Care Team Providers Care Mechanical Maintenance Foreman Name Role Phone Tom Cruz MD Primary Care Provider [phone] Encounter Details Date Type Department Care Team (Late st Contact Info) Description 11/08/2022 Abstract [facility] OB [address] [place] [address] Ron Valenzuela DO [address] [place], [place] [address]Juancarlos [place], [facility] Social History Tobacco Use Types [...] 01/23/2025 1:20 PM EDT Office Visit [facility] [address] [place] [address] Bianca, Ron, [address] [place] [address] documented as of this encounter Visit Diagnoses Not on filedocumented in this encounter Care Teams Mechanical Maintenance Foreman Relationship Specialty Start Date End Date Tom Cruz MD PCP - General Internal Medicine 11/01/22 documented as of this encounter
--- OUTSIDE RECORDS SUMMARY | 2024-12-13 17:08 | XMS_ITS | Encounter Summary ---
Author Organization [facility] Address [address] [place] [address] Care Team Providers Care Modeling Director Name Role Phone Matthew Lemus MD Primary Care Provider Encounter Details Date Type Department Care Team (Late st Contact Info) Description 09/15/2023 Clinisync Result Encounter [facility] External Department Unsolicited Audelia Hobbs PA [address] [place], [place] [id number] Social History Tobacco Use Types Packs/Day Years [...] Office Visit [facility] [address] [place] [phone] Ron Valenzuela DO [address] [place] [address] documented as of this encounter Procedures Procedure Name Priority Date/Time Associated Diagnosis Comments US PELVIS W/ TRANSVAGINAL 09/15/2023 10:18 AM EDT documented in this encounter Results * US PELVIS W/ TRANSVAGINAL (09/15/2023 10:18 AM EDT) Anatomical Region Laterality Modality Other 09/15/2023 10:1 8 AM EDT Narrative 09/15/2023 10:20 [place] [address] Ultrasound Report Signed Patient: KAVITA GAITAN MR#: [id number] : 1995 Acct:[id number] Age/Sex: 28 / F ADM Date: 09/15/23 Loc: [facility] Attending Dr: Audelia Hobbs Ordering Physician: Audelia Hobbs Date of Service: 09/15/23 Procedure(s): US pelvis w/ transvaginal Accession Number(s): [id number] cc: Audelia Hobbs; MATTHEW LEMUS [place] [id number] Patient Name: KAVITA GAITAN MRN: [id number] date: 1995 Sex: F Assigned Patient Location: [facility] Current Patient Location: [facility] Accession/Order Number: [id number] Exam Date: 09/15/2023 09:16 Report Date: 09/15/2023 10:18 At the request of: AUDELIA HOBBS Procedure: US pelvis w/ transvaginal EXAMINATION: US pelvis w/ transvaginal HISTORY: PELVIC PAIN , bleeding for 2 months COMPARISON: Ultrasound pelvis 06/21/2023 TECHNIQUE: Transabdominal and/or transvaginal sonographic examination was performed as indicated by examination type. FINDINGS: UTERUS: Normal size and appearance. IUD within endometrial cavity. Uterus size: 7.3 x 4.0 x 5.5 cm ENDOMETRIUM: Normal homogeneous appearance. Endometrial thickness: 4 mm RIGHT OVARY: Contains a 2.1 cm benign-appearing cyst. Duplex Doppler demonstrates normal waveform and flow; resistive index 0.6. Ovary size: 3.1 x 1.9 x 2.8 cm LEFT OVARY: Normal size and appearance. Duplex Doppler demonstrates normal waveform and flow; resistive index 0.6. Ovary size: 1.8 x 1.0 x 2.1 cm CUL-DE-SAC: Unremarkable. No significant free fluid. BLADDER: Unremarkable. OTHER: None. US/US pelvis w/ transvaginal IMPRESSION: 1. Right ovary contains a 2.1 cm benign-appearing cyst of questionable clinical significance. 2. IUD within endometrial cavity; no suspicious findings. 3. Normal endometrium and uterus. Electronically authenticated by: JORGE BURGESS Date: 09/15/2023 10:18 Dictated By: Jorge Burgess M.D. Signed By: 09/15/23 1020 DD/ 1018 TD/TT: Girls Swimming Coach: Procedure Note Radiology, Radiologist, - 09/15/2023 [place] [id number] Ultrasound Report Signed Patient: KAVITA GAITAN R#: [id number] : 1995Acct:[id number] Age/Sex: 28 / FADM Date: 09/15/23 Loc: [facility] Attending Dr: Audelia Hobbs Ordering Physician: Audelia Hobbs Date of Service: 09/15/23 Procedure(s): US pelvis w/ transvaginal Accession Number(s): [id number] cc: Audelia Hobbs; MATTHEW LEMUS [place] [phone] Patient Name: KAVITA GAITAN MRN: [id number] date: 1995 Sex: F Assigned Patient Location: [facility] Current Patient Location: [facility] Accession/Order Number: [id number] Exam Date: 09/15/2023 09:16 Report Date: 09/15/2023 10:18 At the request of: AUDELIA HOBBS Procedure: US pelvis w/ transvaginal EXAMINATION: US pelvis w/ transvaginal HISTORY: PELVIC PAIN , bleeding for 2 months COMPARISON: Ultrasound pelvis 06/21/2023 TECHNIQUE: Transabdominal and/or transvaginal sonographic examination was performed as indicated by examination type. FINDINGS: UTERUS: Normal size and appearance. IUD within endometrial cavity. Uterus size: 7.3 x 4.0 x 5.5 cm ENDOMETRIUM: Normal homogeneous appearance. Endometrial thickness: 4 mm RIGHT OVARY: Contains a 2.1 cm benign-appearing cyst. Duplex Doppler demonstrates normal waveform and flow; resistive index 0.6. Ovary size:3.1 x 1.9 x 2.8 cm LEFT OVARY: Normal size and appearance. Duplex Doppler demonstrates normal waveform and flow; resistive index 0.6. Ovary size: 1.8 x 1.0 x 2.1 cm CUL-DE-SAC: Unremarkable. No significant free fluid. BLADDER: Unremarkable. OTHER: None. US/US pelvis w/ transvaginal IMPRESSION: 1. Right ovary contains a 2.1 cm benign-appearing cyst of questionable clinical significance. 2. IUD within endometrial cavity; no suspicious findings. 3. Normal endometrium and uterus. Electronically authenticated by: JORGE BURGESS Date: 09/15/2023 10:18 Dictated By: Jorge Burgess M.D. Signed By:09/15/23 1020 DD/ 1018 TD/TT: Girls Swimming Coach: us [facility] Final Result documented in this encounter Visit Diagnoses Not on filedocumented in this encounter Care Teams Modeling Director Relationship Specialty Start Date End Date Matthew Lemus MD PCP - General Internal Medicine 11/01/22 documented as of this encounter
--- OUTSIDE RECORDS SUMMARY | 2024-12-13 17:08 | XMS_ITS | Encounter Summary ---
Author Organization [facility] [facility] Address [id number] [address] [place] [address] Care Team Providers Care Wrapper And Preserver Name Role Phone Tom Cruz DO Primary Care Provider [phone] Encounter Details Date Type Department Care Team (Late st Contact Info) Description 11/28/2023 Telephone [facility] Internal Medicine - Family Medicine [address] [place] [phone] Tom Cruz DO [address] [place] [address] Social History Tobacco Use Types Packs/Day Years [...] often do you attend chur ch or alevism services? Patient declined 04/26/2022 Do you belong to any clubs o r organizations such as episcopalian groups, unions, fraternal or athletic groups, or [...] Answer Date Recorded Total Score 0 11/21/2023 [facility] - Occupational [...] Recorded Do you need help finding a [facility] and/or a training [...] * Telephone Encounter - Amy Peterson - 11/28/2023 2:34 PM EDT Patient called and said that she popped her rib back out of place on Tuesday at work, she started having pain, chest pain, ribs pain, back pain, she has been coughing hard enough to throw up. Is theresomething that we can do, she leaves for vacation WED * Telephone Encounter - Tom Cruz DO - 11/28/2023 2:34 PM EDT Message noted. Her options include being squeezed into my schedule on at noon, or going to PT, or massage therapy, which probably cannot get her in before Tuesday * Telephone Encounter - Tom Cruz DO - 11/28/2023 2:34 PM EDT Message noted. Her options include being squeezed into my schedule on at noon, or going to PT, or massage therapy, which probably cannot get her in before Tuesday * Telephone Encounter - Amy Peterson - 11/28/2023 2:34 PM EDT Patient is agreeable to both PT and massage therapy, she would like somewhere in [place] or close to * Telephone Encounter - Amy Nicholas - 11/28/2023 2:34 PM EDT From patients mychart msg: please advise Thank you. I really appreciate it. Is it normal for the muscle spasms to occur down my left leg as well? The back and abdomen on the left side make sense but my left leg has been horrible. documented in this encounter Plan of Treatment Upcoming Encounters Date Type Department Care Team (Late st Contact Info) Description 05/06/2025 1:15 PM EST Office Visit [facility] Cardiology [address] [place] [phone] Javier Gurrola MD [address] [place] [address] documented as of this encounter Visit Diagnoses Not on filedocumented in this encounter Additional Health Concerns Infection Onset Date Last Indicated Resolved Time COVID-19 Rule-Out 04/21/2024 04/21/2024 04/21/2024 8:21 PM EST Respiratory Rule-Out 10/04/2024 10/04/2024 025 1:35 AM EDT Assessment Noted Time PHQ-9 Depression Total Score: 0 11/21/19 24 4:32 PM EDT documented as of this encounter Care Teams Wrapper And Preserver Relationship Specialty Start Date End Date Tom Cruz DO [address] [place] [address] PCP - General Internal Medicine 12/19/22 documented as of this encounter
--- OUTSIDE RECORDS SUMMARY | 2024-12-13 17:08 | XMS_ITS | Encounter Summary ---
Author Organization [facility] Address [id number] [address] [place] [address] Care Team Providers Care Braiding Operator Name Role Phone Tom Cruz DO Primary Care Provider Encounter Details Date Type Department Care Team (Late st Contact Info) Description 12/06/2023 Orders Only [facility] Internal Medicine - Family Medicine [address] [place] [phone] Tom Cruz DO [address] [place] [address] Social History Tobacco Use Types Packs/Day Years [...] often do you attend chur ch or latter-day services? Patient declined 04/26/2022 Do you belong to any clubs o r organizations such as mandaeism groups, unions, fraternal or athletic groups, or [...] Answer Date Recorded Total Score 0 12/06/2023 [facility] - Occupational [...] Recorded Do you need help finding a [facility] career [facility] and/or a training program? [...] EST Office Visit [facility] [address] [place] [phone] Javier Gurrola MD [address] [place] [address] documented as of this encounter Visit Diagnoses Not on filedocumented in this encounter Additional Health Concerns Infection Onset Date Last Indicated Resolved Time COVID-19 Rule-Out 04/21/2024 04/21/2024 04/21/2024 8:21 PM EST Respiratory Rule-Out 10/04/2024 10/04/2024 025 1:35 AM EDT Assessment Noted Time PHQ-9 Depression Total Score: 0 12/06/19 24 8:37 AM EDT documented as of this encounter Care Teams Braiding Operator Relationship Specialty Start Date End Date Tom Cruz DO [address] [place] [address] PCP - General Internal Medicine 12/19/22 documented as of this encounter
[2024-12-13 17:15] LABS: Glucose Urine UA NEGATIVE (NEGATIVE)
[2024-12-13 17:18] LABS: Hematocrit 40.8 % (36.0-48.0); Hemoglobin 14.0 g/dL (12.0-16.0); Immature Granulocytes Abs Auto 0.03 10^3/uL (0.00-0.03); Immature Granulocytes Pct Auto 0.3 % (0.0-0.5); Lymphocytes Absolute Auto 3.8 10^3/uL (1.2-3.8); Mean Corpuscular HGB Conc 34.3 g/dL (29.9-35.2); Mean Corpuscular Hemoglobin 30.8 pg (26.7-34.0); Mean Corpuscular Volume 89.7 fL (81.0-99.0); Platelet Count 276 10^3/uL (150-450); Red Blood Count 4.55 10^6/uL (4.20-5.40); White Blood Count 9.7 10^3/uL (4.0-11.0)
[2024-12-13] MEDS: KETOROLAC TROMETHAMINE 30 MG/ML VIAL IVP (17:18)
[2024-12-13] MEDS: PROMETHAZINE HCL 12.5 MG in 0.9 % SODIUM CHLORIDE 50 ML 202 MG IV (17:18)
[2024-12-13 17:24] LABS: Anion Gap 12.0; Blood Urea Nitrogen 9.0 mg/dL (7.0-18.0); Calcium 9.0 mg/dL (8.5-10.1); Carbon Dioxide 25.5 mmol/L (21.0-32.0); Chloride 103 mmol/L (98-107); Estimated GFR (African America >60 (>=60 mL/min/1.73m^2); Estimated GFR (Non-African Ame >60 (>=60 mL/min/1.73m^2); Glucose 89 mg/dL (74-106); Potassium 3.5 mmol/L (3.5-5.1); Sodium 137 mmol/L (136-145)
[2024-12-13 17:25] VITALS: BP 96/70; PULSE 104; O2SAT 100
--- NOTE | 2024-12-13 17:26 | ED.GENADUL1 ---
HPI HPI - General Adult General Chief complaint: Abdominal Pain Stated complaint: PELVIC PAIN Time Seen by Provider: 12/13/24 16:50 Source: patient Mode of arrival: walk-in History of Present Illness HPI narrative: 29-year-old female presents to the emergency department for left lower quadrant pelvic area pain. She thinks she may have an ovarian cyst, she has had them previously. She has had a hysterectomy and does not have any vaginal discharge or bleeding. She has had no trauma. She had some pain for about a week but it got much worse today. She has had cyst rupture in the past. No fever or flank pain or dysuria. The pain is severe and continuous. Related Data Home Medications ?Medication ?Instructions ?Recorded ?Confirmed promethazine 12.5 mg rectal 12.5 mg VT Q6H PRN nausea and 04/06/23 02/15/24 suppository vomiting buspirone 15 mg tablet 15 mg PO BID 07/15/23 02/15/24 clonazepam 0.5 mg tablet 0.5 mg PO BID 07/15/23 02/15/24 levonorgestrel (Mirena) 1 device intrauterine ONCE 07/15/23 01/31/24 omeprazole 20 mg capsule,delayed 20 mg PO QPM 07/15/23 02/15/24 release promethazine 12.5 mg tablet 12.5 mg PO Q6H PRN nausea and 07/15/23 02/15/24 vomiting baclofen 10 mg tablet 10 mg PO Q12H PRN muscle spasm 01/31/24 02/15/24 fexofenadine 180 mg tablet 180 mg PO DAILY 01/31/24 02/15/24 (Soha Allergy) fluoxetine 20 mg capsule 20 mg PO DAILY 01/31/24 02/15/24 lisdexamfetamine 60 mg capsule 60 mg PO DAILY 01/31/24 02/15/24 lumateperone 42 mg capsule 42 mg PO QPM 01/31/24 02/15/24 (Caplyta) meclizine 25 mg chewable tablet 25 mg PO TID PRN dizziness 01/31/24 02/15/24 (Motion Sickness Relief (meclizine)) Previous Rx's ?Medication ?Instructions ?Recorded ibuprofen 800 mg tablet 800 mg PO Q8H PRN pain #20 tabs 11/06/23 ibuprofen 800 mg tablet 800 mg PO Q8H PRN pain 14 days #40 02/15/24 tabs ondansetron 4 mg disintegrating 4 mg PO Q6H PRN nausea and 02/15/24 tablet vomiting 5 days #20 tabs oxycodone-acetaminophen 5 mg-325 1 tab PO Q6H PRN pain 7 days #28 02/15/24 mg tablet (Percocet) tabs Allergies Allergy/AdvReac Type Severity Reaction Status Date / Time azithromycin Allergy Mild itching Verified 02/20/24 20:30 erythromycin base Allergy Mild Hives Verified 02/20/24 20:30 lamotrigine (From Lamictal) Allergy Mild facial Verified 02/20/24 20:30 swelling bee venom protein (honey bee) Allergy swelling Verified 02/20/24 20:30 hydrocodone Allergy Hallucinati Verified 02/20/24 20:30 ng lurasidone (From Latuda) Allergy suicidal Verified 02/20/24 20:30 ideation Opioid HPI Opioid Management Most Recent Opioid Data: Last Pain Scale 5 02/16/24, 07:00 Last ORT Total Score 2 02/15/24, 15:46 Last ORT Risk Category Low Risk 02/15/24, 15:46 Review of Systems ROS Narrative A ten point review of systems is negative except as noted above. [facility] Medical History (Updated 12/13/24 @ 18:57 by Ridge Pathak MD) ADD (attention deficit disorder) ?F98.8 - Other specified behavioral and emotional disorders with onset usually occurring in childhood and adolescence (ICD-10) Dysmenorrhea ?N94.6 - Dysmenorrhea, unspecified (ICD-10) Dyspareunia Menorrhagia ?N92.0 - Excessive and frequent menstruation with regular cycle (ICD-10) Panic disorder ?F41.0 - Panic disorder [episodic paroxysmal anxiety] (ICD-10) Pain of ovary ?N94.89 - Other specified conditions associated with female genital organs and menstrual cycle (ICD-10) Pelvic pain ?R10.2 - Pelvic and perineal pain (ICD-10) Insomnia ?G47.00 - Insomnia, unspecified (ICD-10) PTSD (post-traumatic stress disorder) ?F43.10 - Post-traumatic stress disorder, unspecified (ICD-10) Panic attacks ?F41.0 - Panic disorder [episodic paroxysmal anxiety] (ICD-10) Bipolar disorder ?F31.9 - Bipolar disorder, unspecified (ICD-10) COVID-19 ?U07.1 - COVID-19 (ICD-10) Vomiting ?R11.10 - Vomiting, unspecified (ICD-10) Nausea ?R11.0 - Nausea (ICD-10) Kidney stones ?N20.0 - Calculus of kidney (ICD-10) GERD (gastroesophageal reflux disease) ?K21.9 - Gastro-esophageal reflux disease without esophagitis (ICD-10) Palpitations ?R00.2 - Palpitations (ICD-10) PONV (postoperative nausea and vomiting) ?R11.2 - Nausea with vomiting, unspecified (ICD-10) ?Z98.890 - Other specified postprocedural states (ICD-10) Migraines ?G43.909 - Migraine, unspecified, not intractable, without status migrainosus (ICD-10) Cystitis ?N30.90 - Cystitis, unspecified without hematuria (ICD-10) Endometriosis ?N80.9 - Endometriosis, unspecified (ICD-10) Depression ?F32.A - Depression, unspecified (ICD-10) Asthma ?J45.909 - Unspecified asthma, uncomplicated (ICD-10) Anxiety ?F41.9 - Anxiety disorder, unspecified (ICD-10) Surgical History (Updated 01/31/24 @ 10:24 by Hannah Lucero NP) H/O ovarian cystectomy (07/28/20) ?Z98.890 - Other specified postprocedural states (ICD-10) ?Z87.42 - Personal history of other diseases of the female genital tract (ICD-10) History of laparoscopy ?Z98.890 - Other specified postprocedural states (ICD-10) S/P cystoscopy with ureteral stent placement (04/14/23) ?Z96.0 - Presence of urogenital implants (ICD-10) History of umbilical hernia repair ?Z98.890 - Other specified postprocedural states (ICD-10) ?Z87.19 - Personal history of other diseases of the digestive system (ICD-10) History of cystoscopy ?Z98.890 - Other specified postprocedural states (ICD-10) History of ovarian cystectomy ?Z98.890 - Other specified postprocedural states (ICD-10) ?Z87.42 - Personal history of other diseases of the female genital tract (ICD-10) History of endometrial ablation ?Z98.890 - Other specified postprocedural states (ICD-10) History of esophagogastroduodenoscopy (EGD) ?Z98.890 - Other specified postprocedural states (ICD-10) Family History (Updated 07/15/23 @ 09:19 by Hannah Lucero NP) Father Anxiety Depression Other Family history of aneurysm Family history of hypertension Family history of skin cancer Family history of throat cancer TIA (transient ischemic attack) Social History (Updated 02/15/24 @ 06:44 by Kayla Flor RN) Within the past year, how often did you have a drink containing alcohol: monthly or less Smoking status: Never smoker Nicotine containing products detail: vaped for short period stopped last year Second hand tobacco smoke exposure: Yes Non-prescribed substance use: denies use 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 General: The patient appears well and in no apparent distress. Patient is resting comfortably on cart. Skin: Warm, dry, no pallor noted. There is no rash noted. Head: Normocephalic, atraumatic Eye: Normal conjunctiva, no drainage Ears, Nose, Mouth, and Throat: oral mucosa is moist. Nares patent. Cardiovascular: Regular Rate and Rhythm Respiratory: Patient is in no distress, no accessory muscle use, lungs are clear to auscultation, no wheezing, rales or rhonchi Back: non-tender GI: Nondistended. Tenderness present in the left lower quadrant without mass Musculoskeletal: The patient has no evidence of calf tenderness, no pitting edema, symmetrical pulses noted bilaterally Neurological: A&O, normal speech Psychiatric: Cooperative Constitutional Vital Signs, click to edit/add: Last Vital Signs Temp 98.2 F 12/13/24 16:48 Pulse 104 H 12/13/24 17:25 Resp 16 12/13/24 17:25 BP 96/70 12/13/24 17:25 Pulse Ox 100 12/13/24 17:25 O2 Del Method Room Air 12/13/24 16:48 Course Vital Signs Vital signs: Vital Signs Temperature 98.2 F 12/13/24 16:48 Pulse Rate 92 H 12/13/24 16:48 Respiratory Rate 16 12/13/24 16:48 Blood Pressure 142/96 H 12/13/24 16:48 Pulse Oximetry 100 12/13/24 16:48 Oxygen Delivery Method Room Air 12/13/24 16:48 Temperature 98.2 F 12/13/24 16:48 Pulse Rate 104 H 12/13/24 17:25 Respiratory Rate 16 12/13/24 17:25 Blood Pressure 96/70 12/13/24 17:25 Pulse Oximetry 100 12/13/24 17:25 Oxygen Delivery Method Room Air 12/13/24 16:48 Medical Decision Making MDM Narrative Medical decision making narrative: Suspicion is for ovarian cyst or rupture. Ultrasound is pending and the patient is signed out to Dr. Hays at change of shift. Differential Diagnosis Differential Diagnosis: Ovarian cyst, ruptured ovarian cyst, UTI Lab Data Lab results reviewed: Yes I reviewed the patient's lab results Labs: Lab Results 12/13/24 12/13/24 Range/Units 17:02 17:10 WBC 9.7 (4.0-11.0) 10^3/uL RBC 4.55 (4.20-5.40) 10^6/uL Hgb 14.0 (12.0-16.0) g/dL Hct 40.8 (36.0-48.0) % MCV 89.7 (81.0-99.0) fL MCH 30.8 (26.7-34.0) pg MCHC 34.3 (29.9-35.2) g/dL RDW 11.8 (11.0-15.0) % Plt Count 276 (150-450) 10^3/uL MPV 10.7 (9.5-13.5) fL Neut % (Auto) 54.3 (43.0-75.0) % Lymph % (Auto) 38.9 (20.5-60.0) % [place] % (Auto) 5.6 (1.7-12.0) % Eos % (Auto) 0.3 L (0.9-7.0) % Baso % (Auto) 0.6 (0.2-2.0) % Neut # (Auto) 5.3 (1.4-6.5) 10^3/uL Lymph # (Auto) 3.8 (1.2-3.8) 10^3/uL [place]ley # (Auto) 0.6 (0.3-0.8) 10^3/uL Eos # (Auto) 0.0 (0.0-0.7) 10^3/uL Baso # (Auto) 0.1 (0.0-0.1) 10^3/uL Abs Immat Gran (auto) 0.03 (0.00-0.03) 10^3/uL Imm/Tot Granulo (auto) 0.3 (0.0-0.5) % Sodium 137 (136-145) mmol/L Potassium 3.5 (3.5-5.1) mmol/L Chloride 103 (98-107) mmol/L Carbon Dioxide 25.5 (21.0-32.0) mmol/L Anion Gap 12.0 BUN 9.0 (7.0-18.0) mg/dL Creatinine 0.80 (0.55-1.02) mg/dL Est GFR ( Amer) >60 (>=60 mL/min/1.73m^2) Est GFR (Non-Af Amer) >60 (>=60 mL/min/1.73m^2) BUN/Creatinine Ratio 11.2 Glucose 89 (74-106) mg/dL Calcium 9.0 (8.5-10.1) mg/dL Urine Color Lt. yellow (YELLOW) Urine Clarity Clear (CLEAR) Urine pH 7.5 (5.0-9.0) Ur Specific [place] 1.015 (1.005-1.025) Urine Protein Negative (NEG/TRACE) mg/dL Urine Glucose (UA) Negative (NEGATIVE) mg/dL Urine Ketones 15 A (NEGATIVE) mg/dL Urine Occult Blood Negative (NEGATIVE) Urine Nitrite Negative (NEGATIVE) Urine Bilirubin Negative (NEGATIVE) Urine Urobilinogen 0.2 (0.2-1.0) EU/dL Ur Leukocyte Esterase Negative (NEGATIVE) Urine RBC None seen (0-2) #/HPF Urine WBC None seen (NONE SEEN) #/HPF Ur Squamous Epith Cells Rare (NONE/RARE) #/LPF Urine Crystals None seen (None Seen) #/HPF Urine Bacteria None seen (NONE SEEN) #/HPF Urine Casts None seen (NONE SEEN) #/LPF Urine Mucus None seen (NONE SEEN) Discharge Plan Discharge Patient Disposition: Still a Patient
[2024-12-13 17:29] LABS: Cast Seen? NONE SEEN #/LPF (NONE SEEN); Crystals Seen? None Seen #/HPF (None Seen)
[2024-12-13] MEDS: MORPHINE SULFATE 4 MG/ML VIAL IV (18:15)
[2024-12-13 19:26] VITALS: BP 120/80; PULSE 92; O2SAT 100
--- NOTE | 2024-12-13 20:26 | CT_ITS ---
[address] [address] Patient Name: LULÚ CHE MRN: [id number] date: 1995 Sex: F Assigned Patient Location: ER Current Patient Location: ER Accession/Order Number: [id number] Exam Date: 12/13/2024 20:54 Report Date: 12/13/2024 21:02 At the request of: AGUS MURPHY MD Procedure: CT abdomen pelvis w con CT abdomen pelvis w con 12/13/2024 8:40 PM SIGNS AND SYMPTOMS: Left lower quadrant pain and left pelvic pain TECHNIQUE: Multidetector ct axial images of the abdomen and pelvis were obtained with IV contrast. Multiplanar reformats were performed and reviewed to further define anatomy and possible pathology. CT was performed with one or more of the following dose reduction techniques: Automated exposure control, adjustment of the mA and/or kV according to patient size, or use of iterative reconstruction technique. COMPARISON: 04/16/2023 FINDINGS: Lower Chest: Within normal limits. ABDOMEN: Liver: Within normal limits. Bile Ducts: Normal caliber. Gallbladder: No calcified gallstones. Normal caliber wall. Pancreas: Within normal limits. Spleen: Within normal limits. Adrenals: Within normal limits. Kidneys: Within normal limits. Pelvis: Reproductive Organs: No pelvic masses. There has been interval hysterectomy. Ureters: Within normal limits. Bladder: Within normal limits. Bowel: Normal caliber. There is a normal appendix in the right lower quadrant. Mesenteric Lymph Nodes: No enlarged mesenteric lymph nodes. Peritoneum: No ascites or free air, no fluid collection. Vessels: within normal limits Retroperitoneum: Within normal limits. Abdominal Wall: Within normal limits. Bones: Within normal limits. CT/CT abdomen pelvis w con IMPRESSION: No acute intra-abdominal pathology. No bowel obstruction or obstructive uropathy. There has been interval hysterectomy. No free fluid or free air. Impression dictated by: Dimitri Crowley M.D. 12/13/2024 9:02 PM Dictation Location: [place] [address] Electronically authenticated by: [id number] Y Date: 12/13/2024 21:02
[2024-12-13] MEDS: FENTANYL CITRATE/PF 100 MCG/2 ML VIAL IV (20:43)
[2024-12-13] MEDS: DICYCLOMINE HCL 10 MG CAPSULE 20 MG PO (22:05)
== END 2024-12-13 22:09 | disposition home or self-care (01) ==
PROVIDERS: Emergency Medicine; Emergency Provider Internal Medicine; PCP Internal Medicine
DX: R10.32 Left lower quadrant pain (principal); Z87.891 Personal history of nicotine dependence
CPT/HCPCS: 36415; 74177; 76830; 80048; 81001; 85025; 96365; 96375; 99285; J1885; J2270; J2550; J3010; Q9967

== ENCOUNTER 2025-01-29 18:57 | Outpatient (REF) | payer BC, OTHER, SELFPAY ==
--- OUTSIDE RECORDS SUMMARY | 2025-01-29 19:10 | XMS_ITS | CCD ---
Author Organization [facility] Informat ion Partnership [facility] Care Team Providers Care Mixing Tank Operator Name Role Phone Regina Johnson Primary Care Provider [phone] TOÑO BLANC Admitting Unavailable TOÑO BLANC Attending Unavailable REGINA JOHNSON Primary Care Unavailable TOÑO BLANC Referring Unavailable REGINA JOHNSON Primary Care Unavailable Regina Johnson Primary Care Provider BRIANA SWENSON Referring Unavailable REGINA JOHNSON Primary Care Unavailable TOM LEMUS Primary Care Physician [phone] Tom Lemus Primary Care Provider Unavailable Primary Care Physician Unavailab le Unavailable Primary Care Physician Unavailab le Unavailable Primary Care Physician Unavailab Bridgette Bennett Primary Care Physician Julianava Bridgette Gardner Unavailable Unavailable Tae Natarajan Unavailable Bridgette Sargent Primary Care Physician Unava ilBridgette Trimble Primary Care Physician Unava ilKaleigh Stewart Primary Care Physician DO Tom Arango Primary Care Provider [phone] MD Tae Natarajan Attending Provider [phone] Kaleigh Guevara Primary Care Physician JulianavaBridgette Bonilla Primary Care Physician Unava ilMaricel Canela Primary Care Physician Unavailab Maricel Crespo Primary Care Physician Unavailab le Bridgette Sargent Primary Care Physician Unava ilBridgette Trimble Primary Care Physician Unava ilBridgette Trimble Primary Care Physician Unava ilBridgette Trimble MD Primary Care Provider [phone] DR TOM LEMUS Primary Care Unavailable BIANCA .DR PEÑA Admitting Unavailable BIANCA ., DR PEÑA Attending Unavailable BIANCA ., DR PEÑA Consulting Unavailable ZIEBER, DR KAROL Thomas Consulting Unavailable YUHAS, DR CASTRO Primary Care Unavailable BIANCA ., DR PEÑA Admitting Unavailable BIANCA ., DR PEÑA Attending Unavailable BIANCA ., DR PEÑA Consulting Unavailable BIANCA ., DR PEÑA Attending Unavailable IBANCA ., DR PEÑA Consulting Unavailable BIANCA ., DR PEÑA Admitting Unavailable MISC, DR PADRON Primary Care Unavailable YUHAS, DR CASTRO Primary Care Unavailable PATEL, DR TABBY Thomas Consulting Unavailable LUPIS ., ERNESTINE Admitting Unavailable LUPIS ., ERNESTINE Attending Unavailable GRECHNY ., WM CORREA Consulting Unavailabl e LUPIS ., ERNESTINE Consulting Unavailable MIRLANDE, GIBlue Consulting Unavailable NAIMA, CHUY Admitting Unavailable NAIMA, CHUY Attending Unavailable BIANCA ., DR PEÑA Consulting Unavailable MISC, DR PADRON Primary Care Unavailable CHUY MCNAMARA Consulting Unavailable KARASIK ., DR ANGELES Consulting Unavailabl e KARASIK ., DR ANGELES Attending Unavailabl e KARASIK ., DR ANGELES Admitting Unavailabl e MISC, DR PADRON Primary Care Unavailable BIANCA ., DR PEÑA Consulting Unavailable ZIEBER, DR KAROL Thomas Consulting Unavailable YUHAS, DR CASTRO Primary Care [...] PADRON Primary Care Unavailable ZIEBER, DR KAROL Thomas Consulting Unavailable YUHAS, DR CASTRO Primary Care [...] PADRON Primary Care Unavailable ZIEBER, DR KAROL Thomas Consulting Unavailable YUHAS, DR CASTRO Primary Care Unavailable BIANCA ., DR PEÑA Admitting Unavailable BIANCA ., DR PEÑA Attending Unavailable BIANCA ., DR PEÑA Consulting Unavailable BIANCA ., DR EPÑA Admitting Unavailable MISC, DR PADRON Primary Care Unavailable BIANCA ., DR PEÑA Attending Unavailable YUHAS, DR CASTRO Primary Care Unavailable LUPIS ., ERNESTINE Admitting Unavailable LUPIS ., ERNESTINE Attending Unavailable LUPIS ., ERNESTINE Consulting Unavailable YUHAS, DR CASTRO Primary Care Unavailable BIANCA ., DR PEÑA Admitting Unavailable BIANCA ., DR PEÑA Attending Unavailable BIANCA ., DR PEÑA Consulting Unavailable ZIEBER, DR KAROL Thomas Consulting Unavailable YUHAS, DR CASTRO Primary Care Unavailable BIANCA ., DR PEÑA Attending Unavailable BIANCA ., DR PEÑA Consulting Unavailable BIANCA ., DR PEÑA Admitting Unavailable BO ., YOVANA Consulting Unavailable YUHAS, DR CASTRO Primary Care Unavailable BO ., YOVANA Admitting Unavailable BO ., YOVANA Attending Unavailable YUHAS, DR CASTRO Primary Care Unavailable PAY ., DR THURMAN Consulting Unavailable JEFERSON, DR CASTRO Attending Unavailable JEFERSON, DR CASTRO Admitting Unavailable SYDNEYCHNY ., WM CORREA Consulting UnavailISIDRO Manrique Consulting Unavailable ARIN JOHNSTON Consulting Unavailable Agustin Ramos Primary Care Provider DO Tom Lemus Primary Care Provider [phone] MD Tom Patel Emergency Provider [phone] MD Karri Kamara Admit Provider MD Karri Kamara Attending Provider [phone] Sarah Anderson Unavailable Fany Ceballos Unavailable DO Tom Lemus Primary Care Provider MD Fany Ceballos Attending Provider Rishi YOUNG Attending Unavailable BRIDGETTE SARGENT Primary Care Unavailable Rishi YOUNG Attending Unavailable Rishi YOUNG Attending Unavailable BRIDGETTE SARGENT Primary Care Unavailable Rishi YOUNG Attending Unavailable DO Tom Lemus Primary Care Provider DO Tom Lemus Attending Provider DO Ron Valenzuela Attending Provider Tom Lemus MD Primary Care Provider Tom Lemus Attending Unavailable Tom Lemus Primary Care Unavailable Tom Lemus Admitting Unavailable Bianca, Ron Admitting Unavailable Bianca, Ron Attending Unavailable Bianca, Ron Admitting Unavailable Bianca, Ron Attending Unavailable Bridgette Sargent MD Primary Care Provider Tom Lemus DO Primary Care Provider LEIGHTON STATON Referring Unavail able YUNAWAFS, TOM L Primary Care Unavailable Agustin Ramos MD Primary Care Provid er Tom Lemus Unavailable Tom Lemus DO Primary Care Provider Tom Lemus MD Primary Care Provider BIANCA, RON Attending Unavailable BIANCA, RON Attending Unavailable BIANCA, RON Attending Unavailable BIANCA, RON Attending Unavailable YOVANA SORIANO Attending Unavailable YOVANA SORIANO Attending Unavailable SHIREEN CHAVEZ Referring Unavailable YUHAS, TOM L Primary Care Unavailable YUHAS, TOM L Primary Care Unavailable KAROL LIANG Attending Unavailable DEVON, BINU Consulting Unavailable TAE CONTRERAS Admitting Unavailable YUHAS, TOM L Primary Care Unavailable JIM HAYES Attending Unavailable YUHAS, TOM L Primary Care Unavailable JACKY MARTINEZ Attending Unavailable YUHAS, TOM L Primary Care Unavailable SAUL BLANC Attending Unavailable YUHAS, TOM L Primary Care Unavailable NAIMA DUARTE Attending Unavailable BINU OSORIO Consulting Unavailable NAIMA DUARTE Attending Unavailable NAIMA DUARTE Referring Unavailable YUHAS, TOM L Primary Care Unavailable ALI, IMRAN I Admitting Unavailable MANDEEP, IMRAN I Attending Unavailable YUHAS, TOM L Primary Care Unavailable LEIGHTON STATON Referring Unavail able YUHAS, TOM L Primary Care Unavailable JG NICHOLS Referring Unavailable YUHAS, TOM L Primary Care Unavailable PRESZLERJG Referring Unavailable YUHAS, TOM L Primary Care Unavailable PRESKAYAERJG Referring Unavailable YUHAS, TOM L Primary Care Unavailable MARIANELA SALGADO Referring Unavailable YUHAS, TOM L Primary Care Unavailable LEIGHTON STATON Attending Unavail able YUHAS, TOM L Referring Unavailable YUHAS, TOM L Primary Care Unavailable SHIREEN CHAVEZ Attending Unavailable YUHAS, TOM L Referring Unavailable YUHAS, TOM L Primary Care Unavailable YUHAS, TOM L Attending Unavailable YUHAS, TOM L Referring Unavailable YUHAS, TOM L Primary Care Unavailable YUHAS, TOM L Attending Unavailable YUHAS, TOM L Referring Unavailable YUHAS, TOM L Primary Care Unavailable LEIGHTON STATON Attending Unavail able NEREYDA BETH Referring Unavailable YUHAS, TOM L Primary Care Unavailable YUHAS, TOM L Attending Unavailable YUHAS, TOM L Referring Unavailable YUHAS, TOM L Primary Care Unavailable YUHAS, TOM L Attending Unavailable YUHAS, TOM L Referring Unavailable YUHAS, TOM L Primary Care Unavailable YUHAS, TOM L Primary Care Unavailable ALEXEY FERMIN Attending Unavailable YUHAS, TOM L Primary Care Unavailable ROSALIE URBAN Attending Unavailable KENDALL CRUZ Attending Unavailable SHEMARLEIGHTON Referring Unavail able YUHAS, TOM L Primary Care Unavailable JESICA DODSON Attending Unavailabl e YUHAS, TOM L Referring Unavailable YUHAS, TOM L Primary Care Unavailable YUHAS, TOM L Primary Care Unavailable CARMEL PRIETO Attending Unav ailable YUHAS, TOM L Primary Care Unavailable GOMBASHMELIZA Attending Unavailab le GOMBASHMELIZA Attending Unavailab le GOMBASHMELIZA Referring Unavailab le YUHAS, TOM L Primary Care Unavailable YUHAS, TOM L Primary Care Unavailable KORIN HANNAH Attending Unavailable YUHAS, TOM L Primary Care Unavailable KIMANI ARNOLD Attending Unavailable YUHAS, TOM L Attending Unavailable YUHAS, TOM L Referring Unavailable YUHAS, TOM L Primary Care Unavailable YUHAS, TOM L Primary Care Unavailable GIA JONES Attending Unavailable YUHAS, TOM L Attending Unavailable YUHAS, TOM L Referring Unavailable TOM LEMUS Primary Care Unavailable ARIE, BRIDGETTE A Primary Care Unavailable ARIE, BRIDGETTE A Primary Care Unavailable ARIE, BRIDGETTE A Primary Care Unavailable KD COUCH Attending Unavailable ARIE, BRIDGETTE A Primary Care Unavailable ARIE, BRIDGETTE A Primary Care Unavailable KD COUCH G Attending Unavailable Richard DEVLIN, Velez [facility] er Tom Lemus Primary Care Provider Richard DEVLIN, [facility] er YEVGENIY WICK Attending Unavaila ble PRISCILLA GONZALES Referring Unavailable [facility], [facility] Care UnavaYEVGENIY [place] Attending Unavaila TOM Celeste Primary Care Unavailable CHADD FISHER Attending Unavailable [facility] Care Unavai CHADD Jon Attending Unavailable [facility] Primary Care Unavai lable PRISCILLA GONZALES Attending Unavailable CHADD FISHER Referring Unavailable [facility], [facility] Primary Care Unavai lable Allergies Allergy Classification Reported Allergen(s) Allergy Type Date of Onset Reaction(s) Facility (20 sources) bee venom Propensity to adverse reactions to drug 07-15-19 15 Swelling [place], [place] (20 sources) Erythromycin; Translations: [ERYTHROMYCIN] Drug Allergy 07-15-19 15 Itching, Rash, Dermatitis, Other (See Comments), pain, Swelling [place], [place] (20 sources) Azithromycin; Translations: [azithromycin] Drug Allergy 06-07-19 19 Unknown (qualifier value), Rash, Swelling, Dermatitis, pain [facility] (6 sources) Bee pollen; Translations: [bee pollen] Drug Allergy Edema (finding) [facility] (6 sources) Bee/Wasp/Ant venom; Translations: [Bee Stings] Drug allergy Unknown (qualifier value) [facility] (14 sources) lamoTRIgine; Translations: [Lamictal] Drug Allergy [facility] (20 sources) lamoTRIgine; Translations: [lamotrigine] Drug Allergy 01-29-20 22 Swelling, Facial swelling (finding), Rash [facility] (1 source) Azithromycin Drug Allergy [facility] (2 sources) bee venom Drug allergy (disorder) [facility] (1 source) lamoTRIgine Drug Allergy [facility] (20 sources) lurasidone; Translations: [lurasidone] Drug Allergy 02-03-20 23 Suicidal thoughts (finding), Other (See Comments) [facility] (20 sources) Acetaminophen / HYDROcodone; Translations: [acetaminophen-h ydrocodone] Drug Allergy 11-19-19 24 Hallucinations (finding), Hallucinations [facility] (1 source) Azithromycin; Translations: [Zithromax Z-Pacheco] Drug Allergy [facility] Repository (18 sources) Acetaminophen; Translations: [acetaminophen] Drug Allergy 12-29-19 24 Hallucinating [facility] (20 sources) HYDROcodone; Translations: [hydrocodone] Drug Allergy 12-29-19 24 Hallucinations [facility] (18 sources) erythromycin base; Translations: [erythromycin base] Allergy to substance 12-29-19 24 Rash [facility] (19 sources) Acetaminophen / HYDROcodone; Translations: [HYDROCODONE-JUDIE TAMINOPHEN] Drug Allergy 11-08-19 24 Hallucinations [facility] (14 sources) Honey bee venom Allergy to substance 07-15-19 15 Unknown [facility] (14 sources) Lamotrigine Propensity to adverse reactions 01-29-20 Rash, Swelling [facility] (14 sources) lurasidone Drug Allergy 02-03-20 23 [facility] (1 source) Azithromycin Drug Allergy 05-19-20 [facility] Rep[facility] (1 source) lamoTRIgine Drug Allergy 05-19-20 23 [facility] Repository (1 source) lurasidone Drug Allergy 05-19-20 [facility] Repository (6 sources) lurasidone Drug Allergy 03-10-20 Other (See Comments) [facility] [employer] (9 sources) BEE VENOM PROTEIN (HONEY BEE); Translations: [BEE VENOM PROTEIN (HONEY BEE)] Propensity to adverse reactions to drug (disorder) 07-15-19 [facility] Rep[facility] (2 sources) bee venom Propensity to adverse reactions to drug 07-15-19 [facility] Current Medications Medication Drug Class(es) Dates Sig (Normalized) Sig (Original) acetaminophen 300 mg / codeine phosphate 30 mg oral tablet (3 sources) Opioid Agonist Start: 02-08-2024 take 1 tablet by mouth every four hours as needed for pain acetaminophen-cod eine (TYLENOL #3) 300-30 mg per tablet Take 1 tablet by mouth every 4 (four) hours as needed for pain. 02/08/2024 Active Start: 11-06-2023 take 1 tablet by marion th every six hours for pain acetaminophen-codeine (TYLENOL #3) 300-3 0 mg per tablet take 1 tablet by mouth every 6 hours if needed for pain for 5 days 11/06/2023 Active Acetaminophen / oxyCODONE (4 sources) Opioid Agonist Start: 11-20-2023 This order is for a take home starter pack of medication. Please document Not Given with a reason of other on the MAR along with a comment of sent home with patient. Maximum dose of acetaminophen is 4000 mg from all sources in 24 hours. Start: 11-20-2023 End: 11-20-2023 oxyCODONE-acetaminophen (PER COCET) 5-325 MG per tablet 1 tablet take 1 tablet by marion th every six hours as needed for pain oxyCODONE-Acetaminophen 5-325 MG TAKE 1 TABLET BY MOUTH EVERY 6 HOURS NEEDED FOR PAIN Oral for 5 Days Active [id number] 200 actuat albuterol 0.09 mg/actuat metered dose inhaler (20 sources) beta2-Adrenergic Agonist Start: 04-21-2024 take 2 puff(s) by inhalation every four hours albuterol HFA 90 mcg/act inhaler Inhale 2 puffs every 4 (four) hours if needed 04/21/2024 Active Start: 04-21-2024 take 2 puff(s) by in halation every four hours as needed for wheezing albuterol (PROVENTIL HFA;VENTOLIN HFA) 90 mcg/actuation inhaler Indications: Viral URI with cough Inhale 2 puffs every 4 (four) hours as needed for wheezing. 18 g 04/21/2024 Active Start: 10-17-2018 take 2 puff(s) by in halation every six hours as needed albuterol sulfate (PROAIR RESPICLICK) 108 (90 Base) MCG/ACT aerosol powder inhalation Indications: Wheezing Inhale 2 puffs into the lungs every 6 hours as needed for Shortness of Breath 1 Inhaler 1 10/17/2018 Active ALBUTEROL INHALA TION Inhale as instructed. Active take 2 puff(s) by in halation [...] 12 hrs for 10 day(s) Jan, Active ashwagandha root extract 300 mg tablet (6 sources) take 1 tablet by mouth in the morning ashwagandha root extract 300 mg tablet Take 300 mg by mouth in the morning and 300 mg before bedtime. Active baclofen 10 mg oral tablet (20 sources) gamma-Aminobutyric Acid-ergic Agonist Start: 11-30-2023 End: 12-18-2023 take 1 tablet by mouth three times daily baclofen (LIORESAL) 10 mg tablet Indications: Somatic dysfunction of cervical region , Somatic dysfunction of thoracic region Take 1 tablet (10 mg total) by mouth 3 (three) times a day. 30 tablet 11/30/2023 12/18/2023 Discontinued Start: 11-21-2023 End: 09-26-2024 take 0.5 tablet by mouth twice daily as needed for muscle spasms baclofen (LIORESAL) 10 mg tablet Indications: Somatic dysfunction of cervical region , Somatic dysfunction of thoracic region TAKE 1/2 TABLET BY MOUTH TWICE DAILY NEEDED FOR MUSCLE SPASMS 20 tablet 1 01/20/2024 Active benzonatate 100 mg oral capsule (3 sources) Non-narcotic Antitussive Start: 11-17-2023 End: 11-29-2023 benzonatate (TESSALON PERLES) 100 mg capsule Take 1 capsule (100 mg total) by mouth. 11/17/2023 11/29/2023 Active brexpiprazole 1 mg oral tablet (9 sources) Atypical Antipsychotic take 1 tablet by mouth once daily brexpiprazole (REXULTI) 1 MG TABS tablet Take 1 mg by mouth daily 0 Active calcium chloride 0.0014 meq/ml / potassium [...] 03/17/2020 Active cholecalciferol 0.05 mg oral capsule (17 sources) Vitamin D Cholecalciferol (VITAMIN D) 50 MCG (2000 UT) CAPS capsule Take by mouth Active End: 10-15-2024 Cholecalciferol, Vitamin D3, 50 mcg (2,000 unit) cap Take by mouth as directed. 10/15/2024 Discontinued End: 08-29-2024 cholecalciferol, vitamin D3, 2,000 units capsule Take by mouth. 08/29/2024 Discontinued (Therapy completed) clonazePAM 0.5 mg oral tablet (20 sources) Benzodiazepine Start: 06-05-2024 take 0.5 mg by mouth once 0.5 mg, Oral, ONCE, 1 dose, On Tue06/05/24 at 2014 Start: 07-07-2023 End: 09-26-2024 take 1 tablet by mouth in the morning clonazePAM (KlonoPIN) 0.5 MG tablet Take 0.5 mg by mouth in the morning and 0.5 mg before bedtime. 07/07/2023 09/26/2024 Discontinued Start: 07-07-2023 End: 07-09-2024 take 1 tablet by mouth three times daily as needed clonazePAM (KlonoPIN) 0.5 mg tablet Take 1 tablet (0.5 mg total) by mouth 3 (three) times a day as needed (panic disorder). 07/07/2023 07/09/2024 Discontinued (Discontinued by another clinician) take 2 tablets by mo uth twice daily as needed clonazePAM (KLONOPIN) 0.5 MG tablet Take 1 tablet by mouth 2 times daily as needed for Anxiety. One tablet nightly, another PRN Max Daily Amount: 1 mg Active cloNIDine hydrochloride 0.1 mg oral tablet (20 sources) Central alpha-2 Adrenergic Agonist Start: 06-05-2024 take 0.2 mg by mouth once 0.2 mg, Oral, ONCE, 1 dose, On Tue06/05/24 at 2014 Start: 03-20-2024 End: 07-09-2024 take 2 tablets by mouth in the evening cloNIDine (CATAPRES) 0.1 mg tablet Take 2 tablets (0.2 mg total) by mouth in the evening. At night . 03/20/2024 07/09/2024 Discontinued (Discontinued by another clinician) Start: 03-20-2024 End: 08-10-2024 take 1 tablet by mouth once daily at bedtime cloNIDine (CATAPRES) 0.1 mg tablet TAKE 1 TABLET BY MOUTH EVERYDAY AT BEDTIME 03/20/2024 Active codeine phosphate 2 mg/ml / guaiFENesin [...] days. 118 mL 0 03/16/2020 03/19/2020 Active Desogestrel / Ethinyl Estradiol (15 sources) Progestin, Estrogen Start: 11-27-2024 APRI 0.15-0.03 mg per tablet 11/27/2024 Active Start: 09-26-2024 End: 09-26-2025 desogestrel-ethinyl estradio l (Apri) 0.15-30 MG-MCG tablet Indications: Hot flashes , Pelvic pain in female , PCOS (polycystic ovarian syndrome) Take 1 tablet by mouth Daily Pt advised to take continuous and only take active pills 63 tablet 5 09/26/2024 09/26/2025 Active take 1 tablet by marion th once daily, then take 0.15 tablet by mouth once Desogestrel-Ethinyl Estradiol (APRI) 0.15-0.03 mg per tablet Take 1 tablet by mouth once daily. Active 24 hr desvenlafaxine succinate 50 mg extended release oral tablet (20 sources) Serotonin and Norepinephrine Reuptake Inhibitor Start: 11-22-2024 take 1 tablet by mouth every twenty-four hours desvenlafaxine (PRISTIQ) 50 mg 24 hr tablet Take 1 tablet (50 mg total) by mouth. 11/22/2024 Active Start: 01-08-2021 End: 02-02-2023 take 100 mg by mouth once daily Desvenlafaxine Discontinued 100 MG PO Daily January 08, 2021 12:00am February 02, 2023 9:41pm take 1 tablet by marion th once daily Pristiq 25 MG 24 hour tablet Take 25 mg by mouth Daily Active take 1 tablet by marion th once daily desvenlafaxine succinate (PRISTIQ) 100 MG TB24 extended release tablet Take 100 mg by mouth daily Active End: 12-05-2024 take 1 tablet by mouth every twenty-four hours in the morning desvenlafaxine (PRISTIQ) 25 mg 24 hr tablet Take 1 tablet (25 mg total) by mouth in the morning. 12/05/2024 Discontinued (Dose adjustment) dicyclomine hydrochloride 10 mg oral capsule (3 sources) Anticholinergic Start: 07-27-2024 End: 08-11-2024 take 1 capsule by mouth four times daily before mealtime dicyclomine (BENTYL) 10 MG capsule Take 1 capsule by mouth 4 times daily (before meals and nightly) for 15 days 60 capsule 07/27/2024 Active docusate sodium 100 mg oral capsule (7 sources) take 1 capsule by mouth twice daily docusate sodium (COLACE) 100 MG capsule Take 100 mg by mouth 2 times daily Active Drospirenone-Ethiny l Estradiol (8 sources) Progestin, Estrogen Start: 02-02-2023 take 1 tablet by mouth once daily in the morning Drospirenone-Eth inyl Estradiol Active 1 TAB PO Every morning [...] 200 mg oral tablet (3 sources) Start: 11-15-2018 take 1 tablet by mouth twice daily Elagolix Sodium 200 MG TABS Indications: Uterus, adenomyosis Take 1 tablet by mouth 2 times daily 60 tablet 5 11/15/2018 Active eszopiclone 2 mg oral tablet (9 sources) Start: 07-25-2024 eszopiclone (LUNESTA) 2 mg tablet 1 tablet (2 mg total) nightly. 07/25/2024 Active Start: 07-09-2024 End: 10-15-2024 take 1 tablet by mouth once daily at bedtime eszopiclone (LUNESTA) 1 mg tab Take 1 mg by mouth daily at bedtime. 07/09/2024 10/15/2024 Discontinued ethinyl estradiol 0.02 mg / ferrous fumarate 75 mg / norethindrone 1 mg oral tablet (1 source) Estrogen Blisovi FE 06/18 1-20 MG-MCG Oral for 28 Days Active famotidine 20 mg oral tablet (20 sources) Histamine-2 Receptor Antagonist Start: 3 End: take 1 tablet by mouth once daily at bedtime Famotidine (Pepcid) 20 mg Tablet Active 20 MG PO Daily at bedtime February 01, 2023 11:00pm Start: 02-02-2023 take 10 mg by mouth once daily at bedtime Famotidine (Pepcid) 20 mg Tablet Active 10 MG PO Daily at bedtime February 02, 2023 12:00am Start: 04-06-2019 take 1 tablet by marion th twice daily famotidine (PEPCID) 20 MG tablet Take 1 tablet by mouth 2 times daily 180 tablet 1 04/06/2019 Active 2 ml fentaNYL 0.05 mg/ml injection (1 source) Opioid Agonist Start: 10-05-2019 fentaNYL (SUBL IMAZE) injection 25 mcg fexofenadine hydrochloride 180 mg oral tablet (20 sources) Histamine-1 Receptor Antagonist Start: 05-18-2023 End: 09-26-2024 fexofenadine (RADHA) 180 mg tablet Take 180 mg by mouth. 05/18/2023 Active take 1 tablet by mouth once shamar y fexofenadine (RADHA ALLERGY) 60 MG tablet Take 1 tablet by mouth daily Active fluticasone propionate 0.05 mg/actuat metered dose nasal [...] times daily as needed for Itching Active End: 01-29-2022 hydroxyzine HCl 25 mg [...] q24hr, # 21 tab(s), Refills(s) 0, Pharmacy: [facility]/pharmacy #[id number], 165, cm, 05/10/23 11:13:00 EST, Height/Length Dosing, 79, kg, 05/10/23 11:13:00 EST, Weight Dosing Start Date: 05/25/23 Status: Ordered levomefolate/algal oil (L-METHYLFOLATE FORMULA ORAL) (9 sources) Start: 07-25-2024 take 15 mg by mouth in the morning levomefolate/algal oil (L-METHYLFOLATE FORMULA ORAL) Take 15 mg by mouth in the morning. 07/25/2024 Active Start: 07-25-2024 levomefolate/a lgal oil (L-METHYLFOLATE FORMULA ORAL) 07/25/2024 Active lidocaine 0.05 mg/mg medicated patch (1 source) Antiarrhythmic, Amide Local Anesthetic Start: 12-20-2024 apply 1 dose transdermal route once daily, then apply 1 dose transdermal route every twelve hours lidocaine (LIDODERM) 5 % Place 1 patch on the skin daily. Remove & Discard patch within 12 hours or as directed by 30 patch 12/20/2024 Active lithium carbonate 300 mg oral capsule (15 sources) Start: 06-05-2024 600 mg, Oral, ONCE, 1 dose, On Tue06/05/24 at 2015, Maintain adequate fluid and sodium intake End: 07-09-2024 take 2 tablets by mouth twice daily lithium (LITHOBID) 300 MG extended release tablet Take 2 tablets by mouth 2 times daily Active take 1 tablet by marion th in the morning, then take 1 tablet by mouth at bedtime lithium (LITHOBID) 300 mg CR tablet Take 1 tablet (300 mg total) by mouth in the morning and 1 tablet (300 mg total) before bedtime. Active magnesium oxide 400 mg oral tablet (20 sources) Start: 08-03-2024 take 1 tablet by mouth once daily magnesium oxide (Mag-Ox) 400 MG tablet Take 400 mg by mouth Daily 08/28/2024 Active megestrol acetate 20 mg oral tablet (3 sources) Progestin Start: 02-08-2024 End: 02-17-2024 take 1 tablet by mouth once daily megestrol (Megace) 20 MG tablet Indications: Abnormal uterine bleeding (AUB) Take 1 tablet (20 mg total) by mouth Daily for 9 days. 12 tablet 02/08/2024 02/17/2024 Active bx rating 24 hr methylphenidate hydrochloride 36 mg extended release oral tablet (16 sources) Central Nervous System Stimulant Start: 07-09-2024 End: 10-15-2024 methylphenidate HCl (CONCERTA) 36 mg CR tablet 1 tablet (36 mg total) every morning. 07/09/2024 Active Start: 07-09-2024 take 1 tablet by mouth once me thylphenidate ER 18 mg biphasic tablet Take 1 tablet by mouth every afternoon. 07/09/2024 Active Start: 07-09-2024 methylphenidat e HCl (CONCERTA) 18 mg CR tablet 07/09/2024 Active take 1 tablet by marion th in the morning Concerta 36 MG CR tablet Take 36 mg by mouth in the morning. Active methylPREDNISolone (4 sources) Corticosteroid Start: 08-08-2024 methylPREDNISo lone (MEDROL, PACHECO,) 4 mg tablet Indications: Other migraine without status migrainosus, not intractable follow package directions 21 tablet 08/08/2024 Active Start: 02-11-2023 Medrol 4 MG as directed [...] (with meals) 60 tablet 3 11/03/2018 Active nitrofurantoin, macrocrystals 25 mg / nitrofurantoin, monohydrate 75 mg oral capsule (2 sources) Nitrofuran Antibacterial Start: 01-16-2024 End: 01-23-2024 take 1 capsule by mouth in the morning, then take 1 capsule by mouth at bedtime nitrofurantoin, macrocrystal-mono hydrate, (MACROBID) 100 mg capsule Indications: Acute cystitis with hematuria Take 1 capsule (100 mg total) by mouth in the morning and 1 capsule (100 mg total) before bedtime. Do all this for 7 days. 14 capsule 01/16/2024 01/23/2024 Active Norgestimate-Eth Estradiol (MONO-LINYAH PO) (6 sources) Norgestimate-Eth Estradiol (MONO-LINYAH PO) Take by mouth 0 Active omeprazole 20 mg delayed release oral capsule (20 sources) Proton Pump Inhibitor Start: 02-02-2023 End: 09-26-2024 omeprazole (PRILOSEC) 20 mg capsule Take 20 mg by mouth. 10/14/2023 Active End: 02-09-2024 take 2 capsules by mouth in the morning omeprazole (PriLOSEC) 10 mg capsule Take 2 capsules (20 mg total) by mouth in the morning. 02/09/2024 Discontinued (Duplicate Listing) ondansetron 4 mg disintegrating oral tablet (20 sources) Serotonin-3 Receptor Antagonist Start: 10-05-2024 take 1 tablet by mouth every eight hours as needed for nausea ondansetron ODT (ZOFRAN ODT) 4 mg disintegrating tablet Dissolve 1 tablet (4 mg total) on tongue every 8 (eight) hours as needed for nausea for up to 10 doses. 10 tablet 10/05/2024 Active Start: 01-27-2023 End: 07-07-2023 take 0.5 tablet by mouth every eight [...] as needed for Nausea or Vomiting Active End: 10-15-2024 ondansetron (ZOFRAN) 2 mg/mL injection Inject 4 mg intravenously. 10/15/2024 Discontinued pantoprazole 40 mg delayed release oral tablet (20 sources) Proton Pump Inhibitor Start: 09-03-2021 take 1 mg by mouth once daily Pantoprazole [address] Tab mg tab(s), Oral, Daily, Refills(s) 0 Start Date: 09/03/21 Status: Ordered Start: 11-28-2018 End: 10-15-2024 take 1 tablet by mouth once daily pantoprazole (PROTONIX) 40 MG tablet take 1 tablet by mouth once daily 90 tablet 1 07/24/2020 Active Phentermine (14 sources) Sympathomimetic Amine Anorectic Start: 09-04-2021 take 1 mg by mouth once daily Adipex-P mg, Oral, Daily, Refills(s) 0 Start Date: 09/04/21 Status: Ordered take 1 capsule by mo [facility] once daily in the morning phentermine 37.5 MG capsule Take 37.5 mg by mouth every morning. Active Plecanatide (Trulance) 3 mg Tablet (4 sources) Start: 05-18-2023 take 1 tablet by mouth once daily Plecanatide (Trulance) 3 mg Tablet Active 3 MG PO Daily May 18, 2023 1:00am Start: 05-18-2023 take 1 tablet by [facility] once daily Plecanatide (Trulance) 3 mg Tablet Active 3 MG PO Daily May 18, 2023 12:00am promethazine hydrochloride 25 mg oral tablet (20 sources) Phenothiazine Start: 08-08-2024 End: 12-05-2024 take 1 tablet by mouth every six hours as needed for nausea promethazine (PHENERGAN) 25 mg tablet Indications: Nausea and vomiting, unspecified vomiting type Take 1 tablet (25 mg total) by mouth every 6 (six) hours as needed (headache, nausea, or vomiting). 20 tablet 12/05/2024 Active Start: 07-27-2024 End: 08-03-2024 take 1 tablet by mouth every six hours as needed for nausea promethazine (PHENERGAN) 25 MG tablet Take 1 tablet by mouth every 6 hours as needed for Nausea 15 tablet 07/27/2024 08/03/2024 Active Start: 05-09-2023 End: 10-15-2024 take 1 tablet by mouth every six hours as needed for nausea promethazine (PHENERGAN) 12.5 mg tablet TAKE 1 TABLET BY MOUTH EVERY 6 HOURS NEEDED FOR NAUSEA OR VOMITING. 11/20/2023 10/15/2024 Discontinued Start: 12-22-2022 promethazine ( PHENERGAN) 12.5 mg suppository Indications: Nausea and vomiting, unspecified vomiting type Insert 1 suppository (12.5 mg total) into the rectum every 6 (six) hours as needed for nausea or vomiting. 12 each 12/22/2022 Active Start: 06-30-2022 End: 06-30-2022 promethazine (PHENERGAN) tab let 25 mg riboflavin 400 mg oral tablet (19 sources) Start: 01-08-2025 take 1 tablet by mouth in the morning riboflavin, vitamin B2, 400 mg tablet Indications: Other migraine with status migrainosus, not intractable Take 400 mg by mouth in the morning. 30 tablet 4 01/08/2025 Active Start: 08-03-2024 take 1 tablet by marion th in the morning riboflavin, vitamin B2, 400 mg tablet Indications: Other migraine with status migrainosus, not intractable Take 400 mg by mouth in the morning. 30 tablet 4 08/03/2024 Active riboflavin, vitamin B2, (VITAMIN B-2 ORAL) (9 sources) riboflavin, tamika min B2, (VITAMIN B-2 ORAL) Take by mouth. Active solifenacin succinate 10 mg oral tablet (2 sources) Cholinergic Muscarinic Antagonist Solifenacin Succinate 10 MG Oral for 30 Days Active tamsulosin hydrochloride 0.4 mg oral capsule (3 sources) alpha-Adrenergic Jade Start: 3 take 1 capsule by mouth once daily Flomax 0.4 mg Cap 0.4 mg = 1 cap(s), Oral, Daily, # 30 cap(s), Refills(s) 0, Pharmacy: [facility]/pharmacy #[id number], 165, cm, 12/17/21 8:42:00 EDT, Height/Length Dosing, 79, kg, 12/17/21 8:42:00 EDT, Weight Dosing Start Date: 04/28/23 Status: Ordered tiZANidine 4 mg oral tablet (4 sources) Central alpha-2 Adrenergic Agonist Start: 5 End: 6 take 1 tablet by mouth every eight hours as needed tiZANidine (ZANAFLEX) 4 mg tablet Take 1 tablet (4 mg total) by mouth every 8 (eight) hours as needed for muscle spasms. 90 tablet 1 01/11/2025 01/11/2026 Active Start: 01-03-2025 take 1 tablet by marion th twice daily as needed for muscle spasms tiZANidine (ZANAFLEX) 4 mg tablet Indications: Cervical radiculopathy Take 1 tablet (4 mg total) by mouth 2 (two) times a day as needed for muscle spasms. 60 tablet 01/03/2025 Active Start: 12-05-2024 take 1 tablet by marion th twice daily as needed for muscle spasms tiZANidine (ZANAFLEX) 4 mg tablet Indications: Cervical radiculopathy Take 1 tablet (4 mg total) by mouth 2 (two) times a day as needed for muscle spasms. 20 tablet 12/05/2024 Active traMADol hydrochloride 50 mg oral tablet (1 source) Opioid Agonist Start: 01-23-2024 End: 01-25-2024 take 1 tablet by mouth every eight hours as needed for pain traMADoL (ULTRAM) 50 mg tablet Indications: Thoracic myofascial strain, initial encounter Take 1 tablet (50 mg total) by mouth every 8 (eight) hours as needed for pain for up to 2 days. 6 tablet 01/23/2024 01/25/2024 Active traZODone hydrochloride 50 mg oral tablet (20 sources) Serotonin Reuptake Inhibitor Start: 06-05-2024 take 1 dose by mouth once 100 mg, Oral, ONCE, 1 dose, On Tue06/05/24 at 2015 Start: 01-29-2022 End: 05-17-2022 take 1 tablet [...] daily traZODone (DESYREL) 50 MG tablet Take 2 tablets by mouth nightly 0 11/10/2016 Active Start: 11-10-2016 traZODone (KAMARI YREL) 50 MG tablet Take 25 mg by mouth nightly 0 11/10/2016 Active Start: 11-10-2016 take 1 tablet by marion th at bedtime traZODone (DESYREL) 50 MG tablet take 1 tablet by mouth at bedtime 0 11/10/2016 Active End: 08-10-2024 take 1 tablet by mouth once daily traZODone (DESYREL) 100 mg tablet Take 1 tablet (100 mg total) by mouth nightly. 08/10/2024 Discontinued take 0.5 tablet by m outh once daily at bedtime trazodone 150 mg tablet take one-half tablet (75 mg) by oral route once daily at bedtime ubrogepant 50 mg oral tablet (20 sources) Start: 08-08-2024 End: 09-04-2024 ubrogepant (UBRELVY) 50 mg tablet Indications: Other migraine without status migrainosus, not intractable Take 50 mg by mouth as needed (Headache). 10 tablet 09/05/2024 Active Vitamin D (5 sources) Start: 09-04-2021 Vitamin D International_Unit , Oral, qWeek, Refills(s) 0 Start Date: 09/04/21 Status: Ordered vortioxetine 5 mg oral tablet (5 sources) Start: 09-03-2021 take 1 mg by mouth once daily Trintellix 5 mg oral tablet mg tab(s), Oral, Daily, Refills(s) 0 Start Date: 09/03/21 Status: Ordered ziprasidone 20 mg oral capsule (20 sources) Atypical Antipsychotic Start: 07-25-2024 End: 10-15-2024 take 1 capsule by mouth in the morning ziprasidone (GEODON) 20 mg capsule Take 1 capsule (20 mg total) by mouth in the morning and 1 capsule (20 mg total) in the evening. Take with meals. 20 mg in am, 40 mg in pm . 07/25/2024 Active Start: 07-07-2023 End: 09-26-2024 take 1 capsule by mouth once daily at bedtime ziprasidone (Geodon) 40 MG capsule TAKE 1 CAPSULE BY MOUTH ONCE A DAY AT BEDTIME UNTIL CAPLYTA IS APPROVED. 07/07/2023 Active Start: 06-02-2023 End: 07-07-2023 take 1 capsule by mouth once daily at dinner ziprasidone (GEODON) 60 mg capsule Indications: Bipolar 1 disorder ([facility]) Take 1 capsule (60 mg total) by mouth daily with dinner. 30 capsule 3 06/02/2023 07/07/2023 Discontinued (Dose adjustment) Start: 05-18-2023 take 40 mg by mouth once daily Ziprasidone Hcl Active 40 MG PO Daily after supper May 18, 2023 3:02pm Start: 02-05-2023 End: 11-21-2023 take 1 capsule by mouth in the morning, then take 1 capsule by mouth at mealtime ziprasidone (GEODON) 20 mg capsule Take 1 capsule (20 mg total) by mouth in the morning and 1 capsule (20 mg total) in the evening. Take with meals. 02/05/2023 11/21/2023 Discontinued (Discontinued by another clinician) Completed/Discontinued Medications Medication Drug Class(es) Dates Sig (Normalized) Sig (Original) acetaminophen 500 mg oral tablet (14 sources) Start: 01-13-2025 End: 01-13-2025 take 4000 mg by mouth every twenty-four hours 1,000 mg, Oral, ONCE, 1 dose, On 01/13/25 at 1845, Maximum dose of acetaminophen is 4000 mg from all sources in 24 hours. Start: 08-08-2024 take 2 tablets by mo uth every six hours as needed acetaminophen (Tylenol) 325 MG tablet Take 650 mg by mouth every 6 (six) hours if needed 08/08/2024 Active Start: 10-11-2021 End: 10-11-2021 acetaminophen (TYLENOL) tabl et 650 mg acetaminophen 250 mg / aspirin 250 mg / caffeine 65 mg oral tablet (3 sources) Platelet Aggregation Inhibitor, Nonsteroidal Anti-inflammatory Drug, Central Nervous System Stimulant, Methylxanthine Start: 07-14-2024 End: 08-10-2024 tqkxfrx-tzzrpfqhvdqjq-vcammw ne (EXCEDRIN MIGRAINE) 250-250-65 mg per tablet 07/14/2024 08/10/2024 Discontinued acetaminophen 300 mg / butalbital 50 mg / caffeine 40 mg oral capsule (20 sources) Barbiturate, Central Nervous System Stimulant, Methylxanthine Start: 01-19-2022 End: 02-02-2023 take 1 capsule by mouth every four hours Pzqfrfxhjk-Foutltptpzvyn-Adrw (Fioricet) 50-300-40 mg Capsule Discontinued 1 CAP [...] 2023 9:36pm take 1 tablet by marion once daily as needed for sleep ALPRAZolam (XANAX) 0.5 MG tablet Take 0.5 mg by mouth nightly as needed for Sleep. Active amoxicillin 500 mg oral capsule (10 [...] Proton Pump Inhibitor Start: 02-02-2023 End: 07-07-2023 omeprazole-amoxi cill-rifabutin 10-250-12.5 mg capsule,IR & delay rel,biphase Daily at bedtime 0 02/02/2023 07/07/2023 Discontinued (Discontinued by another clinician) 24 hr amphetamine aspartate 6.25 mg / amphetamine sulfate 6.25 mg / dextroamphetamine saccharate 6.25 mg / dextroamphetamine sulfate 6.25 mg extended release oral capsule (14 sources) Central Nervous System Stimulant Start: 01-06-2024 End: 02-09-2024 amphetamine-dext roamphetamine XR (ADDERALL XR) 25 mg 24 hr capsule 01/06/2024 02/09/2024 Discontinued (Side effects) Start: 12-29-2023 End: 01-16-2024 take 1 capsule by mouth once daily, then take 1 capsule by mouth every twenty-four hours amphetamine-dextroamphetamine XR (Addera ll XR) 20 MG 24 hr capsule Take 20 mg by mouth Daily 12/29/2023 01/16/2024 Discontinued (Other) End: 01-16-2024 amphetamine-dextroamphetamin e (ADDERALL) 30 MG tablet Take 20 mg by mouth 2 times daily. Active ARIPiprazole 15 mg oral tablet (20 sources) [...] Take 15 mg by mouth daily Active ascorbic acid 250 mg chewable tablet (17 sources) Vitamin C take 2 tablets by mo uth once daily Vitamin C 250 mg chewable tablet chew 2 tablets by oral route daily take 1 tablet by mouth once shamar y vitamin C (ASCORBIC ACID) 500 MG tablet Take 500 mg by mouth daily 0 Active Bacillus coagulans / Inulin (4 sources) End: 12-05-2024 Bacillus coagulans/inulin (PROBIOTIC WITH PREBIOTIC ORAL) Take 500,000 Million Cells by mouth in the morning. 12/05/2024 Discontinued (Therapy completed) Bacillus coagula ns/inulin (PROBIOTIC WITH PREBIOTIC ORAL) Take 500,000 Million Cells by mouth in the morning. Active bacitracin 0.5 unt/mg / polymyxin b 10 unt/mg ophthalmic ointment (4 sources) Polymyxin-class Antibacterial Start: 08-29-2024 End: 12-05-2024 bacitracin-polymyxin B (POLYSPORIN) ophthalmic ointment Indications: Chalazion of left upper eyelid Administer 0.5 inches into the left eye 2 (two) times a day as needed (eyelid stye). 3.5 g 08/29/2024 12/05/2024 Discontinued (Therapy completed) bisoprolol fumarate 5 mg oral tablet (7 sources) beta-Adrenergic Jade Start: 01-08-2021 End: 02-02-2023 take 5 mg by mouth once daily Bisoprolol Fumarate Discontinued 5 MG PO Daily January 08, 2021 12:00am February 02, 2023 9:41pm busPIRone hydrochloride 5 mg oral tablet (20 sources) Start: 07-09-2024 End: 10-15-2024 busPIRone (BUSPAR) 5 mg tablet TAKE 1 TABLET BY MOUTH TWICE A DAY FOR 3 DAYS THEN STOP 07/09/2024 10/15/2024 Discontinued Start: 06-05-2024 End: 06-05-2024 take 1 dose by mouth once 30 mg, Oral, ONCE, 1 dose, O n 06/05/24 at 2014 Start: 09-03-2021 End: 10-15-2024 take 1 tablet by mouth in the [...] 12:00am February 02, 2023 11:17pm Start: 04-07-2018 End: 07-09-2024 take 2 tablets by mouth in the morning busPIRone (BUSPAR) 15 MG tablet Take 30 mg by mouth in the morning and 30 mg in the evening. 04/07/2018 Active Start: 04-07-2018 End: 09-26-2024 take 1 tablet by mouth in the morning busPIRone (Buspar) 15 MG tablet Take 15 mg by mouth in the morning and 15 mg before bedtime. 12/27/2023 09/26/2024 Discontinued Start: 04-07-2018 busPIRone (BUS PAR) 15 MG tablet Take 20 mg by mouth daily 0 04/07/2018 Active End: 09-26-2024 busPIRone (Buspar) 10 MG tab let Take 15 mg by mouth in the morning and 15 mg before bedtime. 09/26/2024 Discontinued End: 08-10-2024 take 1 tablet by mouth in the morning busPIRone (BUSPAR) 30 mg tablet Take 30 mg by mouth in the morning and 30 mg before bedtime. 08/10/2024 Discontinued End: 05-17-2022 take 1 tablet by mouth every twelve hours busPIRone HCl 15 MG 1 tablet Orally Twice a day for 30 days Active cefdinir 300 mg oral capsule (6 sources) [...] procedure, # 2 tab(s), Refills(s) 0, Pharmacy: [facility]/pharmacy #[id number], 165, cm, 12/17/21 8:42:00 EDT, [...] days 20 tablet 0 01/15/2019 01/25/2019 Active 1 ml diphenhydrAMINE hydrochloride 50 mg/ml cartridge (1 source) Histamine-1 Receptor Antagonist Start: 07-26-2024 End: 07-27-2024 25 mg, IntraVENous, ONCE, 1 dose, On Rebecca 07/26/24 at 2330, IV Push at rate not to exceed 25 mg/min. doxycycline hyclate 100 mg oral capsule (3 sources) Tetracycline-clas s Drug Start: 11-08-2023 End: 11-21-2023 take 1 capsule by mouth in the morning, then take 1 capsule by mouth at bedtime doxycycline (VIBRAMYCIN) 100 mg capsule Take 1 capsule (100 mg total) by mouth in the morning and 1 capsule (100 mg total) before bedtime. 11/08/2023 11/21/2023 Discontinued (Therapy completed) Start: 09-04-2021 doxycycline hy clate 100 mg Cap 100 mg = 1 cap(s), Oral, As Directed, Take 1 pill the day before procedure, then 1 pill after the procedure., # 2 cap(s), Refills(s) 0, Pharmacy: [facility] [id number], 165, cm, 09/04/21 9:50:00 EDT, Height/Length Dosing, 79.1, kg, 09/04/21 9:50:00 EDT,... Start Date: 09/04/21 Status: Ordered doxylamine succinate 25 mg oral tablet (8 sources) take 1 tablet by mouth once daily as needed Unisom (doxylamine) 25 mg tablet take 1 tablet by oral route daily as needed 2 ml droperidol 2.5 mg/ml injection (1 source) Dopamine-2 Receptor Antagonist Start: 5 End: 5 1.25 mg, IntraVENous, ONCE, 1 dose, On Rebecca 07/26/24 at 2330 fluconazole 150 mg oral tablet (13 sources) Azole Antifungal Start: 3 fluconazole 150 mg Tab 300 mg = 2 tab(s), Oral, Once, take 1 tab PO. may repeat dose in 72 hr if still symptomatic., # 2 tab(s), Refills(s) 0, Pharmacy: [facility]/pharmacy #[id number], 165, cm, 12/17/21 8:42:00 EDT, Height/Length Dosing, 79, kg, 12/17/21 8:42:00 EDT, Weight Dosing Start Date: 04/28/23 Status: Ordered Start: 02-16-2022 End: 05-17-2022 take 1 tablet by mouth once Diflucan 150 mg tablet 01/2905/17/2022 take 1 tablet (150 mg) by oral route once and may repeat after antibiotic treatment is finished if needed FLUoxetine 40 mg oral capsule (20 sources) Serotonin Reuptake Inhibitor Start: 06-11-2024 End: 08-10-2024 take 1 capsule by mouth in the morning FLUoxetine (PROzac) 40 mg capsule Take 1 capsule (40 mg total) by mouth in the morning. 06/11/2024 08/10/2024 Discontinued Start: 10-01-2023 End: 09-26-2024 take 1 capsule by mouth in the morning FLUoxetine (PROzac) 20 MG capsule Take 20 mg by mouth in the morning. 10/01/2023 09/26/2024 Discontinued End: 07-09-2024 take 2 capsules by mouth once daily FLUoxetine (PROZAC) 20 MG capsule Take 2 capsules by mouth daily Active ibuprofen 400 mg oral tablet (20 sources) Nonsteroidal Anti-inflammatory Drug Start: 07-14-2024 End: 08-10-2024 ibuprofen (MOTRIN) 400 mg tablet 07/14/2024 08/10/2024 Discontinued Start: 11-06-2023 End: 07-09-2024 take 1 tablet by mouth every eight hours ibuprofen 800 MG tablet Take 800 mg by mouth every 8 (eight) hours 02/16/2024 Active iopamidol (ISOVUE-370) 76 % injection 75 mL (3 sources) Start: 07-26-2024 End: 07-26-2024 take 1 dose intravenously once 75 mL, IntraVENous, IMG ONCE PRN, 1 dose, Starting on Rebecca 07/26/24 at 2311, Until Rebecca 07/26/24 at 2312, Other Start: 11-20-2023 End: 11-20-2023 iopamidol (ISOVUE-370) 76 % injection 75 mL Start: 10-11-2021 End: 10-11-2021 iopamidol (ISOVUE-370) 76 % injection 75 mL ketorolac tromethamine 10 mg oral tablet (5 sources) Nonsteroidal Anti-inflammatory Drug, Cyclooxygenase Inhibitor Start: 08-08-2024 End: 08-29-2024 take 1 tablet by mouth every six hours as needed for pain ketorolac (TORADOL) 10 mg tablet Take 1 tablet (10 mg total) by mouth every 6 (six) hours as needed for pain. 20 tablet 08/08/2024 08/29/2024 Discontinued (Therapy completed) Start: 10-11-2021 End: 10-11-2021 ketorolac (TORADOL) injectio n 30 mg lamoTRIgine 25 mg oral tablet (1 source) Mood Stabilizer, Anti-epileptic Agent lamoTRIgine 25 MG Oral for 30 Days Not-Taking 24 hr levomilnacipran 40 mg extended release oral capsule (20 sources) Serotonin and Norepinephrine Reuptake Inhibitor Start: take 1 capsule by mouth once daily Levomilnacipran (Fetzima) 20 mg capsule,extended release 24 hr Active 40 MG PO Daily May 18, 2023 2:58pm Start: 05-04-2023 End: 09-26-2024 take 1 capsule by mouth in the morning Fetzima 40 MG extended release capsule TAKE 1 CAPSULE (40 MG TOTAL) BY MOUTH IN THE MORNING 06/07/2023 09/26/2024 Discontinued Start: 02-05-2023 End: 11-21-2023 take 1 capsule by mouth every twenty-four hours in the morning levomilnacipran (FETZIMA) 20 mg capsule,extended release 24 hr Take 1 capsule (20 mg total) by mouth in the morning. 02/05/2023 11/21/2023 Discontinued (Discontinued by another clinician) Start: 02-05-2023 End: 05-18-2023 take 1 capsule by mouth once daily Levomilnacipran (Fetzima) 20 mg Capsule,Extended Release 24 Hr Discontinued 20 MG PO Daily 60 February 05, 2023 12:00am May 18, 2023 2:58pm levonorgestrel 0.733874 mg/hr intrauterine system (20 sources) Progestin, Progestin-containing Intrauterine Device Start: 06-29-2023 End: 03-27-2024 Levonorgestrel intrauterine device Start: 06-29-2023 levonorgestreL (MIRENA) 21 mcg/24 hours (8 yrs) 52 mg IUD by intrauterine route daily. 06/29/2023 Active lisdexamfetamine dimesylate 40 mg oral capsule (20 sources) Central Nervous System Stimulant Start: 07-25-2023 End: 09-26-2024 Vyvanse 40 MG capsule Take 60 mg by mouth in the morning. 07/25/2023 09/26/2024 Discontinued Start: 07-25-2023 End: 07-09-2024 VYVANSE 40 mg capsule Take 7 0 mg by mouth every morning. 07/25/2023 07/09/2024 Discontinued (Discontinued by another clinician) End: 08-10-2024 take 1 capsule by mouth once daily in the morning lisdexamfetamine (VYVANSE) 70 MG capsule Take 1 capsule by mouth every morning. Max Daily Amount: 70 mg Active End: 01-10-2024 take 1 capsule by mouth in the morning VYVANSE 40 mg capsule take 1 capsule by mouth IN THE MORNING for ADHD 01/10/2024 Discontinued (Therapy completed) 1 ml LORazepam 2 mg/ml injection (17 sources) Benzodiazepine Start: 01-11-2025 End: 01-11-2025 inject 0.5 mg intravenously once 0.5 mg, IntraVENous, ONCE, 1 dose, On Tue01/11/25 at 2000, Immediately prior to intravenous use, lorazepam Injection must be diluted with at least an equal volume of compatible solution (NS or D5W). Start: 01-11-2025 End: 01-11-2025 1 dose, Starting on 01/11 at 195, Until Tue01/11/25 at 1953, Noemí Cortez: cabinet override Start: 07-10-2024 LORazepam (ATI VAN) 0.5 mg tablet Take 1 tablet (0.5 mg total) by mouth. prn 11/22/2024 Active Start: 07-10-2024 End: 10-15-2024 LORazepam (ATIVAN) 0.5 mg 10/15/2024 Discontinued lumateperone 42 mg oral capsule (20 sources) Start: 07-07-2023 End: 09-26-2024 take 1 capsule by mouth once daily Caplyta 42 MG capsule Take 42 mg by mouth Daily 07/07/2023 09/26/2024 Discontinued lurasidone hydrochloride 60 mg oral tablet (13 [...] 08, 2021 12:00am January 12, 2021 10:30am meclizine hydrochloride 25 mg chewable tablet (20 sources) Antiemetic Start: 11-21-2023 End: 09-26-2024 Meclizine HCl 25 MG chewable tablet Chew 25 mg 3 (three) times a day as needed 11/21/2023 09/26/2024 Discontinued modified 24 hr metFORMIN hydrochloride 500 mg [...] Refills(s) 0 Start Date: 09/04/21 Status: Ordered End: 07-26-2024 take 1 tablet by mouth twice daily at mealtime metFORMIN (GLUCOPHAGE) 500 MG tablet Take 500 mg by mouth 2 times daily (with meals) 07/26/2024 Discontinued (LIST CLEANUP) End: 05-17-2022 take 1 tablet by mouth twice daily metformin ER 500 mg tablet,extended release 24 hr 05/17/2022 take 1 tablet (500 mg) by oral route twice daily metoclopramide 10 mg oral tablet (5 sources) Dopamine-2 Receptor Antagonist take 1 tablet by mouth three times daily as needed Reglan 10 mg tablet take 1 tablet (10 mg) by oral route TID as needed naloxone hydrochloride 40 mg/ml nasal spray (14 sources) Opioid Antagonist Start: End: naloxone (Narcan) 4 mg/0.1 mL nasal spray ADMINISTER 1 SPRAY INTO ONE NOSTRIL. CALL 911. REPEAT AFTER 2-3 MIN IF NO OR MINIMAL RESPONSE 09/22/2023 09/26/2024 Discontinued naloxone (NARCAN) 4 mg/actuation spray,non-aerosol nasal spray (10 sources) Start: End: naloxone (NARCAN) 4 mg/actuation spray,non-aerosol nasal spray ADMINISTER 1 SPRAY INTO ONE NOSTRIL. CALL 911. REPEAT AFTER 2-3 MIN IF NO OR MINIMAL RESPONSE 09/22/2023 02/09/2024 Discontinued (Therapy completed) Start: 09-22-2023 naloxone (NARC AN) 4 mg/actuation spray,non-aerosol nasal spray ADMINISTER 1 SPRAY INTO ONE NOSTRIL. CALL 911. REPEAT AFTER 2-3 MIN IF NO OR MINIMAL RESPONSE 09/22/2023 Active naratriptan 2.5 mg oral tablet (10 sources) Serotonin-1b and Serotonin-1d Receptor Agonist Start: 08-03-2024 End: 08-10-2024 take 1 tablet by mouth once as needed naratriptan (AMERGE) 2.5 mg tablet Indications: Other migraine with status migrainosus, not intractable Take 1 tablet (2.5 mg total) by mouth once as needed for migraine for up to 9 doses. May repeat in 4 hours if unresolved. Do not exceed 5 mg in 24 hours. 9 tablet 4 08/03/2024 08/10/2024 Discontinued norethindrone 0.35 mg oral tablet (1 source) Start: 09-23-2022 End: 07-07-2023 take 1 tablet by mouth in the morning norethindrone (MICRONOR) 0.35 mg tablet Take 1 tablet (0.35 mg total) by mouth in the morning. 28 tablet 12 09/23/2022 07/07/2023 Discontinued (Dose adjustment) 24 hr paliperidone 6 mg extended release oral tablet (16 sources) Atypical Antipsychotic Start: 01-12-2021 End: 02-10-2022 take 6 mg by mouth at bedtime Paliperidone Discontinued 6 MG PO Bedtime January 12, 2021 12:00am February 10, 2022 2:22pm take 1 tablet by marion th once daily in the morning paliperidone (INVEGA) 9 MG extended rele ase tablet Take 9 mg by mouth every morning Active PEAK FLOW METER (8 sources) Start: 05-17-2022 PEAK FLOW METER 05/17/2022 USE QAM AND PRN TO MONITOR ASTHMA plecanatide 3 mg oral tablet (1 source) Start: 04-04-2023 End: 07-07-2023 take 1 tablet by mouth in the morning plecanatide 3 mg tablet Indications: Irritable bowel syndrome with constipation Take 3 mg by mouth in the morning. 90 tablet 1 04/04/2023 07/07/2023 Discontinued (Therapy completed) microencapsulated potassium chloride 20 meq extended release oral tablet (1 source) Start: 07-27-2024 End: 07-27-2024 40 mEq, Oral, ONCE, 1 dose, On Tue07/27/24 at 0000, Do not crush or break. Do not crush, chew, or suck on tablet. Tablet may also be broken in half and each half swallowed separately. pramipexole dihydrochloride 0.5 mg oral tablet (16 sources) Nonergot Dopamine Agonist Start: 01-08-2021 End: 02-10-2022 take 0.5 mg by mouth twice daily Pramipexole Discontinued 0.5 MG PO Twice daily January 08, 2021 12:00am February 10, 2022 2:23pm take 1 tablet by marion th three times daily pramipexole (MIRAPEX) 0.5 MG tablet Take 0.5 mg by mouth 3 times daily Active predniSONE 20 mg oral tablet (5 sources) Start: 01-10-2024 End: 01-16-2024 take 2 tablets by mouth in the morning predniSONE (DELTASONE) 20 mg tablet Indications: Mild intermittent asthma, unspecified whether complicated Take 2 tablets (40 mg total) by mouth in the morning for 5 days. 10 tablet 01/10/2024 01/16/2024 Discontinued (Therapy completed) Start: 11-21-2023 End: 11-26-2023 take 1 tablet by mouth in the morning predniSONE (DELTASONE) 20 mg tablet Indications: Benign paroxysmal positional vertigo of left ear Take 1 tablet (20 mg total) by mouth in the morning for 5 days. 5 tablet 11/21/2023 11/26/2023 Active Start: 03-13-2020 End: 03-18-2020 take 1 tablet by mouth twice daily predniSONE (DELTASONE) 10 MG tablet Take 1 tablet by mouth 2 times daily for 5 days 10 tablet 0 03/13/2020 03/18/2020 Active 28 mg iron-800 mcg tablet (8 sources) take 2 tablets by mouth once daily 28 mg iron-800 mcg tablet take 2 tablets by oral route daily MV-Min-Fe Fum-FA-DHA ( 1 PO) (13 sources) End: 09-26-2024 MV-Min-Fe Fum-FA-DHA ( 1 PO) Take by mouth. 09/26/2024 Discontinued MV-Min- Fe Fum-FA-DHA ( 1 PO) Take by mouth. Active vit37/iron/folic ac id (PRENATA ORAL) (4 sources) End: 11-21-2023 vit37/iron/folic ac id (PRENATA ORAL) Take by mouth. 11/21/2023 Discontinued (Patient Stopped On Own) vit37/i oni/folic acid (PRENATA ORAL) Take by mouth. Active vit37/i oni/folic acid (PRENATA ORAL) Take by mouth. 0 Active prochlorperazine 5 mg/ml injectable solution (1 source) Phenothiazine Start: 07-26-2024 End: 07-26-2024 10 mg, IntraVENous, ONCE, 1 dose, On Rebecca 07/26/24 at 2300, If administering IV push, administer at a maximum rate of 5 mg/minute. Patients should remain lying down following administration and be reassessed for relief of nausea and presence of hypotension. Patients should be assisted the first time they get up after administration. propranolol hydrochloride 10 mg oral tablet (11 sources) beta-Adrenergic Jade Start: 02-09-2022 End: 05-17-2022 take 1 tablet by mouth three times daily propranolol 10 mg tablet 02/09/2022 05/17/2022 take 1 tablet (10 mg) by oral route 3 times per day QUEtiapine 25 mg oral tablet (15 sources) Atypical Antipsychotic Start: 11-05-2023 End: 09-26-2024 take 1 tablet by mouth once daily at bedtime QUEtiapine (SEROquel) 25 MG tablet take 1 tablet by mouth once daily at bedtime if needed for insomnia 11/05/2023 09/26/2024 Discontinued rosuvastatin calcium 5 mg oral tablet (11 [...] 50 ml sodium chloride 9 mg/ml injection (4 sources) Start: 07-26-2024 End: 07-27-2024 1,000 mL (14.1 mL/kg), IntraVENous, at 2,000 mL/hr, Administer over 30 Minutes, ONCE, On Rebecca 07/26/24 at 2300, For 1 dose Start: 01-07-2024 End: 01-08-2024 1,000 mL (15.4 mL/kg), Intra VENous, at 983.6 mL/hr, Administer over 61 Minutes, ONCE, On 01/07/24 at 2300, For 1 dose Start: 06-30-2022 End: 06-30-2022 0.9 % sodium chloride bolus Start: 10-11-2021 End: 10-11-2021 0.9 % sodium chloride bolus sulfamethoxazole 800 mg / trimethoprim 160 mg oral tablet (4 sources) Dihydrofolate Reductase Inhibitor Antibacterial, Sulfonamide Antimicrobial Start: 01-10-2024 End: 01-20-2024 take 1 tablet by mouth once in the morning sulfamethoxazole-trimethoprim (BACTRIM DS) 800-160 mg per tablet Indications: Acute cystitis with hematuria Take 1 tablet by mouth in the morning and 1 tablet before bedtime. Do all this for 10 days. Take with food. 20 tablet 01/10/2024 01/16/2024 Discontinued (Ineffective) technetium mebrofenin (CHOLETEC) injection 6 millicurie (1 source) Start: 10-12-2019 End: 10-12-2019 technetium mebrofenin (CHOLETEC) injection 6 millicurie topiramate 100 mg oral tablet (20 sources) Start: 01-29-2022 End: 02-02-2023 Topiramate [...] AT BEDTIME 90 tablet 4 06/23/2018 Active 24 hr divalproex sodium 500 mg extended release oral tablet (17 sources) Mood Stabilizer, Anti-epileptic Agent Start: 01-11-2025 take 500 mg by mouth once daily 500 mg, Oral, DAILY, First dose on Tue01/11/25 at 2044, Until Discontinued, Do not crush or break. Start: 09-07-2024 take 1 tablet by marion th in the morning, then take 1 tablet by mouth in the evening, then take 1 tablet by mouth at bedtime Depakote 250 MG EC tablet Take 250 mg by mouth in the morning and 250 mg in the evening and 250 mg before bedtime. 09/07/2024 Active take 1 tablet by marion th three times daily divalproex (DEPAKOTE) 500 mg EC tablet Take 1 tablet (500 mg total) by mouth 3 (three) times a day. Active Problems Active Problems Problem Classification Problem Date Documented Da te Episodic/Chronic Anxiety disorders (20 sources) Generalized anxiety disorder; Translations: [Anxiety] Onset: 10-09-2014 11-08-2014 Chronic Asthma (20 sources) Asthmatic bronchitis; Translations: [Asthma] Onset: 02-04-2015 02-04-2015 Chronic Cardiac dysrhythmias (20 sources) Postural orthostatic tachycardia syndrome ; Translations: [POTS (postural orthostatic tachycardia syndrome)] Onset: 07-02-2024 07-04-2024 Chronic Cardiac dysrhythmias (20 sources) Tachycardia; Translations: [Tachycardia, unspecified] Onset: 02-09-2022 07-13-2024 Episodic Conditions associated with dizziness or vertigo (7 sources) Dizziness and giddiness; Translations: [Orthostatic hypotension] Onset: 06-17-2022 07-13-2024 Episodic Diabetes mellitus without complication (4 sources) Other abnormal glucose; Translations: [OTHER ABNORMAL GLUCOSE] Onset: 08-30-2022 Episodic Disorders of lipid metabolism (20 sources) Hyperlipidemia; Translations: [Other and unspecified hyperlipidemia] Onset: 02-09-2022 Chronic E Codes: Adverse effects of medical drugs (1 source) Adverse effect of other antiepileptic and sedative-hypnotic drugs, initial encounter; Translations: [Adverse effect of other antiepileptic and sedative-hypnotic drugs, initial encounter] Onset: 10-12-2024 Episodic Epilepsy; convulsions (5 sources) Simple partial seizure; Translations: [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 seizures, not intractable, without status epilepticus] Onset: 06-08-2024 06-08-2024 Chronic Epilepsy; convulsions (10 sources) Seizure; Translations: [Unspecified convulsions] Onset: 06-14-2024 06-22-2024 Episodic Fever of unknown origin (2 sources) Fever, unspecified; Translations: [Fever] Onset: 10-04-2024 Episodic Genitourinary symptoms and ill-defined conditions (20 sources) Urge incontinence; Translations: [Urge incontinence of urine] Onset: 09-04-2021 Chronic Headache; including migraine (20 sources) Migraine; Translations: [Migraine with aura] Onset: 11-24-2016 Resolved: 08-29-2024 11-24-2016 Chronic Headache; including migraine (2 sources) Headache Onset: 06-24-2024 Episodic Headache; including migraine (2 sources) Headache; including migraine; Translations: [Headache, unspecified] Onset: 06-24-2024 Hemorrhage during ; abruptio placenta; placenta previa (4 sources) Low lying placenta NOS or without hemorrhage, second trimester; Translations: [Low lying placenta NOS or without hemorrhage, unspecified trimester] Onset: 08-17-2022 Episodic Hepatitis (1 source) Nonalcoholic steatohepatitis (CALDWELL); Translations: [Nonalcoholic steatohepatitis (CALDWELL)] Onset: 12-29-2023 Chronic Immunizations and screening for infectious disease (20 sources) Encounter for screening for respiratory tuberculosis; Translations: [Contact with and (suspected) exposure to infections with a predominantly sexual mode of transmission] Onset: 12-23-2021 Episodic Influenza (2 sources) Influenza Onset: 04-21-2024 Menstrual disorders (11 sources) Irregular menstruation, unspecified; Translations: [Amenorrhea, unspecified] Onset: 11-16-2021 Chronic Miscellaneous mental health disorders (20 sources) Dissociative neurological symptom disorder; Translations: [Dissociative and conversion disorder, unspecified] Onset: 11-10-2021 06-05-2024 Chronic Mood disorders (20 sources) Depressive disorder; Translations: [Bipolar disorder] Onset: 04-30-2015 04-30-2015 Chronic Other aftercare (2 sources) Other terminal supervisor (current) drug therapy; Translations: [OT [facility] CURRENT DRUG THERAPY] Onset: 09-20-2022 Episodic Other aftercare (4 sources) Postoperative visit; Translations: [Encounter for other specified surgical aftercare] 03-27-2024 Episodic Other aftercare (5 sources) Drug therapy finding; Translations: [Other senior living (current) drug therapy] Onset: 10-17-2024 10-17-2024 Episodic Other circulatory disease (3 sources) Orthostatic hypotension; Translations: [Orthostatic hypotension] 06-08-2024 Episodic Other complications of (1 source) Other mental disorders complicating , third trimester; Translations: [OT MENTAL D/O COMP PREG THIRD TRI] Onset: 09-20-2022 Episodic Other complications of (4 sources) Other specified related conditions, second trimester; Translations: [OTH SPEC PREG RELATED COND 2ND TRI] Onset: 09-04-2022 Episodic Other connective tissue disease (1 source) Pain in upper limb Onset: 12-19-2024 Episodic Other disorders of stomach and duodenum (2 sources) Delayed gastric emptying; Translations: [Functional dyspepsia] Episodic Other disorders of stomach and duodenum (1 source) Functional dyspepsia Episodic Other endocrine disorders (14 sources) Polycystic ovarian syndrome Chronic Other endocrine disorders (2 sources) Polycystic ovary syndrome; Translations: [Polycystic ovarian syndrome] 09-26-2024 Chronic Other eye disorders (1 source) Chalazion of left upper eyelid; Translations: [Chalazion left upper eyelid] 08-29-2024 Episodic Other female genital disorders (3 sources) Abnormal uterine and vaginal bleeding, unspecified; Translations: [ABNORMAL UTERINE VAGINAL BLEED UNS] Onset: 11-14-2021 Chronic Other female genital disorders (1 source) Pain in female genitalia on intercourse; Translations: [Unspecified dyspareunia] 01-16-2024 Chronic Other female genital disorders (1 source) Other specified noninflammatory disorders of vagina; Translations: [OTH SPEC NONINFLAMMATORY D/O VAGINA] Onset: 07-07-2022 Episodic Other gastrointestinal disorders (2 sources) Irritable bowel syndrome characterized by constipation; Translations: [Irritable bowel syndrome with constipation] Chronic Other gastrointestinal disorders (1 source) Irritable bowel syndrome with constipation Chronic Other hereditary and degenerative nervous system conditions (1 source) Drug-induced tremor; Translations: [Drug-induced tremor] Onset: 10-12-2024 Chronic Other hereditary and degenerative nervous system conditions (4 sources) Medication-induced postural tremor; Translations: [Drug-induced tremor] Onset: 10-17-2024 10-17-2024 Chronic Other injuries and conditions due to external causes (4 sources) Foreign body in bladder; Translations: [Foreign body in bladder, initial encounter] Onset: 05-10-2023 Episodic Other lower respiratory disease (1 source) Shortness of breath; Translations: [Shortness of breath] Onset: 07-16-2024 Episodic Other nervous system disorders (1 source) Slurred speech Onset: 07-16-2024 Episodic Other nervous system disorders (1 source) Numbness Onset: 12-05-2024 Episodic Other nutritional; endocrine; and metabolic disorders [...] due to other allergen] Onset: 06-15-2022 Chronic Residual codes; unclassified (7 sources) Hallucinations; Translations: [...] WEEKS GESTATION OF ] Onset: 07-24-2022 Episodic Residual codes; unclassified (2 sources) Flushing; Translations: [Flushing] 09-26-2024 Episodic Residual codes; unclassified (1 source) Clouded consciousness Onset: 07-16-2024 Episodic Schizophrenia and other psychotic disorders (5 sources) Schizophrenia 09-03-2021 Chronic Suicide and intentional self-inflicted injury (8 sources) Suicidal thoughts; Translations: [Suicidal ideations] 01-08-2021 Episodic Unclassified (1 source) CONTACT W/AND (SUSP) EXPOS COVID-19; Translations: [CONTACT W/AND (SUSP) EXPOS COVID-19] Onset: 05-28-2022 Unclassified (1 source) Seizure - Prior Hx Of Onset: 06-24-2024 Unclassified (1 source) seizures-no history Onset: 06-14-2024 Unclassified (1 source) wellness Onset: 02-09-2024 Unclassified (1 source) New Patient Onset: 08-10-2024 Unclassified (1 source) Cold Like Symptoms Onset: 04-21-2024 Unclassified (1 source) Neuromuscular Disturbance Onset: 06-27-2024 Past or Other Problems Problem Classification Problem Date Documented Da te Episodic/Chronic Abdominal pain (20 sources) Epigastric pain; Translations: [Abdominal pain] Onset: 09-13-2015 09-16-2015 Episodic Endometriosis (20 sources) Endometriosis (clinical); Translations: [Endometriosis, unspecified] Onset: 02-25-2021 Resolved: 07-09-2024 09-03-2021 Chronic Fluid and electrolyte disorders (9 sources) Dehydration; Translations: [Dehydration] Onset: 06-18-2022 07-27-2024 Episodic Genitourinary symptoms and ill-defined conditions (20 sources) Tenzin hematuria; Translations: [Urgent desire to urinate] Onset: 03-01-2019 Resolved: 01-25-2022 03-01-2019 Episodic Joint disorders and dislocations; trauma-related (20 sources) Chondromalacia of patella; Translations: [Chondromalacia patellae, unspecified knee] Onset: 04-26-2022 Resolved: 08-29-2024 04-26-2022 Chronic Joint disorders and dislocations; trauma-related (20 sources) Acute meniscal tear, medial; Translations: [Complex tear of medial meniscus, current injury, left knee, initial encounter] Onset: 04-26-2022 Resolved: 08-29-2024 04-26-2022 Episodic Mood disorders (20 sources) Mood disorders Onset: 02-09-2024 Resolved: 12-05-2024 02-09-2024 Nausea and vomiting (20 sources) Intractable nausea and vomiting; Translations: [Nausea] Onset: 06-17-2022 Episodic Nonspecific chest pain (6 sources) Chest wall pain; Translations: [Other chest pain] Onset: 06-06-2024 11-20-2023 Episodic Other bone disease and musculoskeletal deformities (3 sources) Cervical somatic dysfunction; Translations: [Segmental and somatic dysfunction of cervical region] 11-21-2023 Episodic Other bone disease and musculoskeletal deformities (4 sources) Somatic dysfunction of thoracic region; Translations: [Segmental and somatic dysfunction of thoracic region] 11-21-2023 Episodic Other circulatory disease (3 sources) Postural orthostatic tachycardia syndrome ; Translations: [Postural orthostatic tachycardia syndrome (POTS)] Onset: 07-18-2024 07-04-2024 Episodic Other circulatory disease (2 sources) Orthostatic hypotension; Translations: [Orthostatic hypotension] Onset: 06-08-2024 Episodic Other complications of (4 sources) Mild hyperemesis gravidarum; Translations: [MILD HYPEREMESIS GRAVIDARUM] Onset: 06-22-2022 Episodic Other complications of (1 source) Other specified related conditions, unspecified trimester; Translations: [OTH SPEC PREG RELATED COND UNS TRI] Onset: 06-22-2022 Episodic Other complications of (4 sources) Other specified related conditions, first trimester; Translations: [OTH SPEC PREG RELATED COND 1ST TRI] Onset: 05-26-2022 Episodic Other eye disorders (1 source) Chalazion left upper eyelid; Translations: [Chalazion left upper eyelid] Onset: 08-29-2024 Episodic Other female genital disorders (14 sources) Ovarian pain; Translations: [Other specified conditions associated with female genital organs and menstrual cycle] Onset: 07-04-2023 07-04-2023 Episodic Other gastrointestinal disorders (1 source) Oropharyngeal dysphagia; Translations: [Dysphagia, oropharyngeal phase] 07-07-2023 Episodic Other gastrointestinal disorders (1 source) Diarrhea, unspecified; Translations: [Diarrhea, unspecified] Onset: 07-26-2024 Episodic Other lower respiratory disease (1 source) Personal history of other diseases of the respiratory system; Translations: [Personal history of other diseases of the respiratory system] Onset: 04-21-2024 Episodic Other upper respiratory disease (1 source) Pain in throat Onset: 05-06-2024 Episodic Other upper respiratory infections (5 sources) Acute frontal sinusitis; Translations: [Viral upper respiratory tract infection] Onset: 04-21-2024 Episodic Ovarian cyst (1 source) Corpus luteum cyst of left ovary; Translations: [CORPUS LUTEUM CYST OF LEFT OVARY] Onset: 03-24-2022 Episodic Personality disorders (20 sources) Borderline personality disorder; Translations: [Borderline personality disorder] Onset: 11-10-2021 Resolved: 08-29-2024 11-10-2021 Chronic Polyhydramnios and other problems of amniotic cavity (20 sources) premature rupture of membranes, unspecified as to length of time between rupture and onset of labor, third trimester; Translations: [ premature rupture of membranes ] Onset: 09-16-2022 Episodic Residual codes; unclassified (20 sources) Insomnia; Translations: [Insomnia, unspecified] Onset: 06-24-2015 06-24-2015 Episodic Residual codes; unclassified (1 source) Weeks of gestation of not specified; Translations: [WEEKS GESTATION NOT SPEC] Onset: 06-22-2022 Episodic Residual codes; unclassified (1 source) 12 weeks gestation of ; Translations: [12 WEEKS GESTATION OF ] Onset: 05-28-2022 Episodic Residual codes; unclassified (20 sources) Unresponsive ; Translations: [Transient alteration of awareness] Onset: 06-14-2024 06-14-2024 Episodic Residual codes; unclassified (3 sources) Transient alteration of awareness; Translations: [Transient alteration of awareness] Onset: 06-14-2024 Episodic Spondylosis; intervertebral disc disorders; other back problems (20 sources) Acute back pain with sciatica; Translations: [Lumbago with sciatica, unspecified side] Onset: 06-08-2016 06-08-2016 Episodic Sprains and strains (2 sources) Strain of muscle, fascia and tendon at neck level, initial encounter; Translations: [Strain of muscle and tendon of unspecified wall of thorax, initial encounter] Onset: 01-23-2024 Episodic Syncope (20 sources) Syncope and collapse; Translations: [Loss of consciousness] Onset: 06-22-2024 07-13-2024 Episodic Unclassified (20 sources) Onset: 01-10-2024 01-10-2024 Urinary tract infections (13 sources) Cystitis; Translations: [Cystitis, unspecified without hematuria] Onset: 09-04-2021 Episodic Results Test Name Value Interpretation Reference Range Facility [facility] 01-16-2025 [facility] Telephone ([id number]) CARI QUIJANO ([id number]) 1995 F Date Time Provider Department 01/16/25 PRISCILLA GONZALES NE50MN During your visit today, we recorded the following information about you: Niru Stanley 01/16/2025 4:54 PM Signed Letter Request: Reason letter is requested. Letter of diagnosis - stating that patient: Cari Quijano has a serious health condition to cover days off from work that will be needed for spouse: Wai Quijano. Person calling: Cari Quijano To be addressed to: To Whom It May Concern Address/Email: please sent to patient via So[employer] Phone/Fax: n/a Patient of Anitra Schumacher RN 01/17/2025 8:49 AM Signed Sent patient [employer] message requesting fmla forms for spouse. Anitra Sims RN Allergies As of Date: 01/16/2025 (Not on File) Date Reviewed: Never Reviewed Reason for Visit: Letter [264] Cmt: Diagnosis Letter Prescriptions as of 01/17/2025 - divalproex DR (DEPAKOTE) 250 mg EC tablet Take 250 mg by mouth three times a day. - Desogestrel-Ethinyl Estradiol (APRI) 0.15-0.03 mg per tablet Take 1 tablet by mouth once daily. - ALBUTEROL INHALATION Inhale as instructed. - magnesium oxide (MAG-OX) 400 mg (241.3 mg magnesium) tablet Take 400 mg by mouth once daily. - riboflavin, vitamin B2, (VITAMIN B-2 ORAL) Take by mouth. - ubrogepant (UBRELVY) 50 mg tablet Take 50 mg by mouth once daily as needed for migraine headache (see administration instructions). - desvenlafaxine ER (PRISTIQ) 25 mg 24 hr tablet TAKE 1 TABLET BY MOUTH DAILY FOR MOOD - omeprazole (PRILOSEC) 20 mg capsule Take 20 mg by mouth. - fexofenadine (RADHA) 180 mg tablet Take 180 mg by mouth. 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] 10/15/2024 Encounter Status:Closed by ANITRA SIMS on 01/17/25 [facility] QUIJANOCARI JAY ([id number]) 1995 F Date Time Provider Department 01/14/25 PRISCILLA GONZALES NE50MN During your visit today, we recorded the following information about you: Guzman Destiny SMALLWOOD 01/14/2025 10:06 AM Signed Seizure activity: Name of Caller : Cari Quijano Relationship to patient: Self Contact phone number: [phone] (home) Date of seizure: 01/13/25 Duration: multiples Back to Baseline (Yes/No): yes Emergency treatment needed (Yes/No): yes Patient of Anitra Schumacher, RN 01/14/2025 10:35 AM Signed PNES patient, Had initial consult with Dr. Castro in September Cancelled all others. Now rescheduled with first appt 01/22. See 01/11 encounter. KATHERINE Asif Merlene 01/14/2025 2:28 PM Signed Please call patient with recommendations at [phone] (home). John Dave RN 01/14/2025 3:40 PM Signed Called patient, confirmed identity. Gave patient message below Expressed understanding, no questions at this time Contact Information for Cari [phone] (Home Phone) Seizure Call Last Visit: 10/15/24 Priscilla Price Next Visit: 01/22/25 Date and Time of seizure: 01/13/25 and 01/11/25 Seizure description: 01/13/25 evening , blank staring off into space not responding 2 episodes lasting 5 minutes apiece , Then 2 episodes of full body shakes and shivers lasting about 5 minutes , Awake and fuzzy between episodes then slipped into next episode Duration: 90 minutes ,over all Witnessed: Aura: felt really hot , sweaty , nauseous, Last Seizure: 01/11/25 , evening Aura - not feeling right , hot , head felt heavy, extremely tired - she texted mom ,description of seizure as witnessed by mother after arriving to Cari 's house, mother found patient lying on floor in full body shakes lasting 5 minutes, was incontinent of urine , no tongue bite, . No rescue .medication used, back to base line took 24 hours - felt disoriented and confused, slowly returned baseline TB: no UI: yes Rescue Medication used: Tried Ativan - no response ASM: VPA depakote 500 mg 3 times a day = total of 1500 mg /day Dose Increased by psychiatrist end of September 2024 from 250 mg 3 times day= total 750 mg Triggers: none Back to Base Line: non verbal for approx 1/2 hours felt weak and wobbly jaw clenched for 30 minutes before relaxing Other: Do I need to have a repeat EMU visit? Ladan Ayala APRN.CNP 01/15/2025 6:38 AM Signed If she feels current seizures are different than prior episodes captured as PNES Would recommend repeat EMU study as reccommended in VALERIE note ARISTEO Cortes Lynn, RN 01/15/2025 12:03 PM Signed Please provide recommendations below. The EMU is Epilepsy Monitoring Unit Admission most often 2-[address] Gonzales is at [facility]. Or its available at [facility]. If she is interested we will let schedulers know and contact her. Thank you KATHERINE Asif Margaret, RN 01/15/2025 12:12 PM Signed Call to patient, no answer. Left requesting that patient call the office for a message from Ladan Ayala CNP. CB number given. Anitra Sims RN 01/15/2025 2:04 PM Signed Patient returned call. Spoke with her about recommendations for EMU admission. She is in agreement. Please place abstract. Thank you KATHERINE Asif Kelly, APRN.CNP 01/15/2025 4:01 PM Signed Abstract placed Ladan Ayala APRN.CNP Allergies As of Date: 01/14/2025 (Not on File) Date Reviewed: Never Reviewed Reason for Visit: Seizures [97] Prescriptions as of 01/15/2025 - divalproex DR (DEPAKOTE) 250 mg EC tablet Take 250 mg by mouth three times a day. - Desogestrel-Ethinyl Estradiol (APRI) 0.15-0.03 mg per tablet Take 1 tablet by mouth once daily. - ALBUTEROL INHALATION Inhale as instructed. - magnesium oxide (MAG-OX) 400 mg (241.3 mg magnesium) tablet Take 400 mg by mouth once daily. - riboflavin, vitamin B2, (VITAMIN B-2 ORAL) Take by mouth. - ubrogepant (UBRELVY) 50 mg tablet Take 50 mg by mouth once daily as needed for migraine headache (see administration instructions). - desvenlafaxine ER (PRISTIQ) 25 mg 24 hr tablet TAKE 1 TABLET BY MOUTH DAILY FOR MOOD - omeprazole (PRILOSEC) 20 mg capsule Take 20 mg by mouth. - fexofenadine (RADHA) 180 mg tablet Take 180 mg by mouth. Problem List As Of Date 01/14/2025 Noted Resolved Psychogenic nonepileptic seizure [F44.5] 10/15/2024 Encounter Status:Closed by DOE GONZALES on 01/15/25 Normal [facility] CBC with Auto Differentialon 01-13-2025 Basophils (Bld) [#/Vol] 0.07 10*3/uL [facility] Basophils/100 WBC (Bld) 1 % 0 - 2 % B on [facility] Eosinophils (Bld) [#/Vol] 0.09 10*3/uL [facility] Eosinophils/100 WBC (Bld) 1 % 1 - 4 % [facility] Erythrocyte distribution width (RBC) [Ratio] 12.0 % 11.8 - 14.4 % [facility] Hematocrit (Bld) [Volume fraction] 38.6 % 36.3 - 47.1 % [facility] Hemoglobin (Bld) [Mass/Vol] 13.4 g/dL 11.9 - 15.1 g/dL [facility] Immature granulocytes (Bld) [#/Vol] [facility] Immature granulocytes/100 WBC (Bld) 0 % 0 [facility] Lymphocytes/100 WBC (Bld) 36 % 24 - 43 % [facility] Lymphocytes/100 WBC (Bld) 2.70 % [facility] MCH (RBC) [Entitic mass] 31.1 pg 25.2 - 33.5 pg [facility] MCHC (RBC) [Mass/Vol] 34.7 g/dL 28.4 - 34.8 g/dL [facility] MCV (RBC) [Entitic vol] 89.6 fL 82.6 - 102.9 fL [facility] Monocytes/100 WBC (Bld) 8 % 3 - 12 % B on [facility] Monocytes/100 WBC (Bld) 0.61 % B on [facility] Neutrophils/100 WBC (Bld) 54 % 36 - 65 % [facility] Nucleated RBC/100 WBC (Bld) [Ratio] 0.0 % 0.0 per 100 WBC [facility] Platelet mean volume (Bld) [Entitic vol] 10.8 fL 8.1 - 13.5 fL [facility] Platelets (Bld) [#/Vol] 267 10*3/uL [facility] RBC (Bld) [#/Vol] 4.31 10*6/uL 3.95 - 5.1 1 m/uL [facility] Segmented neutrophils/100 WBC (Bld) 4.04 % [facility] WBC other (Bld) [#/Vol] 7.5 B on [facility] CBC with Diffon 01-13-2025 Abs. Basophil 0.07 k/uL Normal 0.00-0.[address] [facility] Comment on above: Performed By: #### C DP, CP, MG #### [facility] [address] [place] [address] Process Engineering Technician: Cholo Alicea MD Abs.Imm.Granulocyte <0.03 Normal 0.00-0.30 [facility] Comment on above: Performed By: #### C ALEXA, CP, MG #### [facility] [address] [place] [address] Process Engineering Technician: Cholo Alicea MD Abs.Neutrophil (Seg) 4.04 k/uL Normal 1.50-8.10 [facility] Comment on above: Performed By: #### C DP, CP, MG #### [address] [place], [facility] Process Engineering Technician: Cholo Alicea MD Basophils/100 WBC (Bld) 1 % Normal 0-2 [facility] Comment on above: Performed By: #### C DP, CP, MG #### [address] [place], [facility] Process Engineering Technician: Cholo Alicea MD Eosinophils (Bld) [#/Vol] 0.09 10*3/uL Normal 0.00-0.44 [facility] Comment on above: Performed By: #### C DP, CP, MG #### [address] [place], [place] [address] Process Engineering Technician: Cholo Alicea MD Eosinophils/100 WBC (Bld) 1 % Normal 1-4 [facility] Comment on above: Performed By: #### C DP, CP, MG #### [address] [place], [facility] Process Engineering Technician: Cholo Alicea MD Erythrocyte distribution width (RBC) [Ratio] 12.0 % Normal 11.8-14.4 [facility] Comment on above: Performed By: #### C DP, CP, MG #### [address] [place], [facility] Process Engineering Technician: Cholo Alicea MD Hematocrit (Bld) [Volume fraction] 38.6 % Normal 36.3-47.1 [facility] Comment on above: Performed By: #### C DP, CP, MG #### [address] [place], [facility] Process Engineering Technician: Cholo Alicea MD Hemoglobin (Bld) [Mass/Vol] 13.4 g/dL Normal 11.9-15.1 [facility] Comment on above: Performed By: #### C DP, CP, MG #### [address] [place] [facility] Process Engineering Technician: Cholo Alicea MD Immature granulocytes/100 WBC (Bld) 0 % Normal 0 [facility] Comment on above: Performed By: #### C DP, CP, MG #### [facility] [address] [place], [facility] Process Engineering Technician: Cholo Alicea MD Lymphocytes (Bld) [#/Vol] 2.70 10*3/uL Normal 1.10-3.70 [facility] Comment on above: Performed By: #### C DP, CP, MG #### [address] [place] [address] Process Engineering Technician: Cholo Alicea MD Lymphocytes/100 WBC (Bld) 36 % Normal 24-43 [facility] Comment on above: Performed By: #### C DP, CP, MG #### [address] [place], [place] [address] Process Engineering Technician: Cholo Alicea MD MCH (RBC) [Entitic mass] 31.1 pg Normal 25.2-33.5 [facility] Comment on above: Performed By: #### C DP, CP, MG #### [address] [place], [facility] Process Engineering Technician: Cholo Alicea MD MCHC (RBC) [Mass/Vol] 34.7 g/dL Normal 28.4-34.8 [facility] Comment on above: Performed By: #### C DP, CP, MG #### [address] [place], [facility] Process Engineering Technician: Cholo Alicea MD MCV (RBC) [Entitic vol] 89.6 fL Normal 82.6-102.9 M [facility] Comment on above: Performed By: #### C DP, CP, MG #### [address] [place], [facility] Process Engineering Technician: Cholo Alicea MD Monocytes (Bld) [#/Vol] 0.61 10*3/uL Normal 0.10-1.20 [facility] Comment on above: Performed By: #### C DP, CP, MG #### [facility] [address] [place] [address] Process Engineering Technician: Cholo Alicea MD Monocytes/100 WBC (Bld) 8 % Normal 3-12 M [facility] Comment on above: Performed By: #### C DP, CP, MG #### [facility] [address] [place], [place] [id number] Process Engineering Technician: Cholo Alicea MD Neutrophil (Seg) 54 % Normal 36-65 [facility] Comment on above: Performed By: #### C DP, CP, MG #### [facility] [address] [place] [address] [place], [place] [id number] Process Engineering Technician: Cholo Alicea MD NRBC Automated 0.0 per 100 WBC Normal 0.0 [facility] Comment on above: Performed By: #### C DP, CP, MG #### [address] [place], [place] [id number] Process Engineering Technician: Cholo Alicea MD Platelet mean volume (Bld) [Entitic vol] 10.8 fL Normal 8.1-13.5 [facility] Comment on above: Performed By: #### C DP, CP, MG #### [facility] [address] [place] [address] [place], [place] [id number] Process Engineering Technician: Cholo Alicea MD Platelets (Bld) [#/Vol] 267 10*3/uL Normal 138-453 [facility] Comment on above: Performed By: #### C DP, CP, MG #### [facility] [address] [place], [place] [id number] Process Engineering Technician: Cholo Alicea MD RBC (Bld) [#/Vol] 4.31 10*6/uL Normal 3.95-5.11 [facility] Comment on above: Performed By: #### C DP, CP, MG #### [facility] [address] [place] [address] Process Engineering Technician: Cholo Alicea MD WBC (Bld) [#/Vol] 7.5 10*3/uL Normal 3.5-11.3 [facility] Comment on above: Performed By: #### C DP, CP, MG #### [facility] [address] [place] [address] Process Engineering Technician: Cholo Alicea MD [facility] 01-13-2025 Albumin [Mass/Vol] 4.0 g/dL 3.5 - 5.2 g/dL [facility] Albumin/Globulin [Mass ratio] 1.4 {ratio} 1.0 - 2.5 [facility] ALP [Catalytic activity/Vol] 57 U/L 35 - 104 U/L [facility] ALT [Catalytic activity/Vol] 14 U/L 10 - 35 U/L [facility] Anion gap [Moles/Vol] 11 mmol/L 9 - 16 mmol/L [facility] AST [Catalytic activity/Vol] 20 U/L 10 - 35 U/L [facility] Bilirubin [Mass/Vol] mg/dL 0.00 - 1.20 mg/dL [facility] Calcium [Mass/Vol] 8.5 mg/dL Low 8.6 - 10. 4 mg/dL [facility] Chloride [Moles/Vol] 106 mmol/L 98 - 10 7 mmol/L [facility] CO2 [Moles/Vol] 22 mmol/L 20 - 31 mmol/L [facility] Creatinine [Mass/Vol] 0.7 mg/dL 0.50 - 0.90 mg/dL [facility] Est, Glom Filt Rate - PINF [facility] Comment on above: These results are not [...] that affects renal tubular secretion. Glucose [Mass/Vol] 99 mg/dL 74 - 99 mg/dL [facility] Interpretation and review of laboratory results Abnormal [facility] Potassium [Moles/Vol] 4.1 mmol/L 3.7 - 5.3 mmol/L [facility] Comment on above: Specimen hemolysis h as exceeded the interference as defined by Lupe. Value may be falsely increased. Suggest recollection if clinically indicated. Protein [Mass/Vol] 6.9 g/dL 6.6 - 8.7 g/dL [facility] Sodium [Moles/Vol] 139 mmol/L 136 - 145 mmol/L [facility] Urea nitrogen [Mass/Vol] 12 mg/dL 6 - 20 mg/dL [facility] Urea nitrogen/Creatinine [Mass ratio] 17 mg/mg 9 - [address] [facility] [address] HEAD WO CONTRASTon 2024 CT HEAD WO CONTRAST EXAM: CT HEAD WITHOUT 01/13/2025 06:10:48 PM TECHNIQUE: CT of the head was performed without the administration of intravenous contrast. Automated exposure control, iterative reconstruction, and/or weight based adjustment of the mA/kV was utilized to reduce the radiation dose to as low as reasonably achievable. COMPARISON: None available. CLINICAL HISTORY: Seizure. ORDERING SYSTEM PROVIDED HISTORY: seizure; TECHNOLOGIST PROVIDED HISTORY: ; seizure; Decision Support Exception - unselect if not a suspected or confirmed emergency medical condition->Emergency Medical Condition (MA); Is the patient ?->No FINDINGS: BRAIN AND VENTRICLES: No acute intracranial hemorrhage. No mass effect or midline shift. No extra-axial fluid collection. White-white differentiation is maintained. No hydrocephalus. ORBITS: No acute abnormality. SINUSES AND MASTOIDS: No acute abnormality. SOFT TISSUES AND SKULL: No acute skull fracture. No acute soft tissue abnormality. IMPRESSION: 1. No acute intracranial abnormality. Interpreted by: Dhiraj David MD Signed by: Dhiraj David MD 01/13/25 Final result Normal [facility] CT Head WO contraston 2024 1. No acute intracranial abnormality. [facility]PN RIS CONSOLIDATED EXAM: CT HEAD WITHOUT 01/13/2025 06:10:48 PM TECHNIQUE: CT of the head was performed without the administration of intravenous contrast. Automated exposure control, iterative reconstruction, and/or weight based adjustment of the mA/kV was utilized to reduce the radiation dose to as low as reasonably achievable. COMPARISON: None available. CLINICAL HISTORY: Seizure. ORDERING SYSTEM PROVIDED HISTORY: seizure; TECHNOLOGIST PROVIDED HISTORY: ; seizure; Decision Support Exception - unselect if not a suspected or confirmed emergency medical condition->Emergency Medical Condition (MA); Is the patient ?->No FINDINGS: BRAIN AND VENTRICLES: No acute intracranial hemorrhage. No mass effect or midline shift. No extra-axial fluid collection. White-white differentiation is maintained. No hydrocephalus. ORBITS: No acute abnormality. SINUSES AND MASTOIDS: No acute abnormality. SOFT TISSUES AND SKULL: No acute skull fracture. No acute soft tissue abnormality. [facility] Dhiraj David MD - 01/13/2025 EXAM: CT HEAD WITHOUT 01/13/2025 06:10:48 PM TECHNIQUE: CT of the head was performed without the administration of intravenous contrast. Automated exposure control, iterative reconstruction, and/or weight based adjustment of the mA/kV was utilized to reduce the radiation dose to as low as reasonably achievable. COMPARISON: None available. CLINICAL HISTORY: Seizure. ORDERING SYSTEM PROVIDED HISTORY: seizure; TECHNOLOGIST PROVIDED HISTORY: ; seizure; Decision Support Exception - unselect if not a suspected or confirmed emergency medical condition->Emergency Medical Condition (MA); Is the patient ?->No FINDINGS: BRAIN AND VENTRICLES: No acute intracranial hemorrhage. No mass effect or midline shift. No extra-axial fluid collection. White-white differentiation is maintained. No hydrocephalus. ORBITS: No acute abnormality. SINUSES AND MASTOIDS: No acute abnormality. SOFT TISSUES AND SKULL: No acute skull fracture. No acute soft tissue abnormality. IMPRESSION: 1. No acute intracranial abnormality. [facility] Radiology Study observation (narrative) [facility] CT Head WO contrastOrdered B y: Dhiraj David on 01-13-2025 [facility] Work Phone: Comp Metabolic Profon 2024 Albumin [Mass/Vol] 4.0 g/dL Normal 3.5-5.2 [facility] Comment on above: Performed By: #### C DP, CP, MG #### [facility] [address] [place], [place] [id number] Process Engineering Technician: Cholo Alicea MD Albumin/Glob Ratio 1.4 Normal 1.0-2.5 [facility] Comment on above: Performed By: #### C DP, CP, MG #### [facility] [address] [place] [address] Process Engineering Technician: Cholo Alicea MD Alkaline Phos 57 U/L Normal 35-[address] [facility] Comment on above: Performed By: #### C DP, CP, MG #### [address] [place], [place] [address]83 Process Engineering Technician: Cholo Alicea MD ALT [Catalytic activity/Vol] 14 U/L Normal 10-35 [facility] Comment on above: Performed By: #### C DP, CP, MG #### [address] [place], [place] [address]83 Process Engineering Technician: Cholo Alicea MD Anion gap [Moles/Vol] 11 mmol/L Normal 9-16 [facility] Comment on above: Performed By: #### C DP, CP, MG #### [address] [place] [address] Process Engineering Technician: Cholo Alicea MD AST [Catalytic activity/Vol] 20 U/L Normal 10-35 [facility] Comment on above: Performed By: #### C DP, CP, MG #### [address] [place], [place] [address]83 Process Engineering Technician: Cholo Alicea MD Bilirubin [Mass/Vol] mg/dL Normal 0.00-1.20 [facility] Comment on above: Performed By: #### C DP, CP, MG #### [address] [place] [address] Process Engineering Technician: Cholo Alicea MD BUN/CRE Ratio 17 Normal 9-[address] [facility] Comment on above: Performed By: #### C DP, CP, MG #### [facility] [address] [place] [address] Process Engineering Technician: Cholo Alicea MD Calcium [Mass/Vol] 8.5 mg/dL Low 8.6-10.4 [facility] Comment on above: Performed By: #### C DP, CP, MG #### [facility] [address] [place] [address] Process Engineering Technician: Cholo Alicea MD Chloride [Moles/Vol] 106 mmol/L Normal 98-107 [facility] Comment on above: Performed By: #### C DP, CP, MG #### [facility] [address] [place] [address] Process Engineering Technician: Cholo Alicea MD CO2 [Moles/Vol] 22 mmol/L Normal 20-31 [facility] Comment on above: Performed By: #### C DP, CP, MG #### [facility] [address] [place] [address] Process Engineering Technician: Cholo Alicea MD Creatinine [Mass/Vol] 0.7 mg/dL Normal 0.50-0.90 [facility] Comment on above: Performed By: #### C DP, CP, MG #### [facility] [address] [place] [address] Process Engineering Technician: Cholo Alicea MD GFR/1.73 sq M.predicted among non-blacks MDRD (S/P/Bld) [Vol rate/Area] mL/min/{1.73_m2} Normal >60 [facility] Comment on above: Result Comment: These results [...] secretion. Performed By: #### C DP, CP, MG #### [facility] [address] [place] 6[address] Process Engineering Technician: Cholo Alicea MD Glucose [Mass/Vol] 99 mg/dL Normal 74-99 [facility] Comment on above: Performed By: #### C DP, CP, MG #### [facility] [address] [place] [address]2683 Process Engineering Technician: Cholo Alicea MD Potassium [Moles/Vol] 4.1 mmol/L Normal 3.7-5.3 [facility] Comment on above: Result Comment: Spec imen hemolysis has exceeded the interference as defined by Lupe. Value may be falsely increased. Suggest recollection if clinically indicated. Performed By: #### C DP, CP, MG #### [address] [place], [place] [address]483 Process Engineering Technician: Cholo Alicea MD Protein [Mass/Vol] 6.9 g/dL Normal 6.6-8.7 [facility] Comment on above: Performed By: #### C DP, CP, MG #### [address] [place] [address] Process Engineering Technician: Cholo Alicea MD Sodium [Moles/Vol] 139 mmol/L Normal 136-145 [facility] Comment on above: Performed By: #### C DP, CP, MG #### [facility] [address] [place] [address] [place], [place] 4230283 Process Engineering Technician: Cholo Alicea MD Urea nitrogen [Mass/Vol] 12 mg/dL Normal 6-20 [facility] Comment on above: Performed By: #### C DP, CP, MG #### [address] [place] [address] Process Engineering Technician: Cholo Alicea MD Drug Scr, Abuse, Uron 2024 Benzodiazepine(s) Positive Abnormal NEG [facility] Comment on above: Result Comment: Cuto ff: 200 ng/ml Performed By: #### C DP, CP, MG #### [facility] [address] [place] [address] [place] [address] Process Engineering Technician: Cholo Alicea MD Amphetamine(s),Ur Negative Normal NEG [facility] Comment on above: Result Comment: Cuto ff: 1000 ng/mL Performed By: #### C DP, CP, MG #### [address] [place] [address] Process Engineering Technician: Cholo Alicea MD Barbiturate(s),Ur Negative Normal NEG [facility] Comment on above: Result Comment: Cuto ff: 200 ng/ml Performed By: #### C DP, CP, MG #### [facility] [address] [place] [address] [place] [address] Process Engineering Technician: Cholo Alicea MD Cannabinoid(s),Ur Negative Normal NEG [facility] Comment on above: Result Comment: Cuto ff: 50 ng/ml Performed By: #### C DP, CP, MG #### [address] [place], [place] [address]383 Process Engineering Technician: Cholo Alicea MD Cocaine Metabolite Negative Normal NEG [facility] Comment on above: Result Comment: Cuto ff: 300 ng/ml Performed By: #### C DP, CP, MG #### [facility] [address] [place] [address] [place] [address] Process Engineering Technician: Cholo Alicea MD Fentanyl, Urine Negative Normal NEG [facility] Comment on above: Result Comment: Cuto ff: 5 ng/ml Performed By: #### C DP, CP, MG #### [facility] [address] [place] [address] [place], [place] [id number] Process Engineering Technician: Cholo Alicea MD Interpretive Info This method is a screening test to detect only these drug classes as part of a Normal [facility] Comment on above: Result Comment: medi daniel workup. Confirmatory testing by another method should be ordered if clinically indicated. Performed By: #### C DP, CP, MG #### [address] [place], [place] [address]83 Process Engineering Technician: Cholo Alicea MD Methadone Ql (U) Negative Normal NEG [facility] Comment on above: Result Comment: Cuto ff: 300 ng/ml Performed By: #### C DP, CP, MG #### [address] [place], [place] [address] Process Engineering Technician: Cholo Alicea MD Opiate(s), Ur Negative Normal NEG [facility] Comment on above: Result Comment: Cuto ff: 300 ng/ml Note: The Opiate screen is not intended to detect Oxycodone. Performed By: #### C DP, CP, MG #### [address] [place], [place] [address]83 Process Engineering Technician: Cholo Alicea MD Oxycodone, Urine Negative Normal [facility] Comment on above: Result Comment: Cuto ff: 100 ng/ml Performed By: #### C DP, CP, MG #### [address] [place], [place] [address]83 Process Engineering Technician: Cholo Alicea MD Phencyclidine, Ur Negative Normal NEG [facility] Comment on above: Result Comment: Cuto ff: 25 ng/ml Performed By: #### C DP, CP, MG #### [address] [place], [place] [address] Process Engineering Technician: Cholo Alicea MD Lactic Acidon 01-13-2025 Lactate (BldV) [Moles/Vol] 1.4 mmol/L 0.5 - 2.2 mmol/L [facility] Lactate [Moles/Vol] 1.4 mmol/L Normal 0.5-2.2 [facility] Comment on above: Performed By: #### C DP CP, MG #### [facility] [address] [place] [address] Process Engineering Technician: Cholo Alicea MD Magnesiumon 01-13-2025 Magnesium [Mass/Vol] 2.2 mg/dL 1.6 - 2 .6 mg/dL [facility] Magnesium [Mass/Vol] 2.2 mg/dL Normal 1.6-2.6 [facility] Comment on above: Performed By: #### C ANTONIA LIU, MG #### [facility] [address] [place] [address] Process Engineering Technician: Cholo Alicea MD Microscopic Urinalysison Epithelial cells LM.HPF (Urine sed) [#/Area] 0 TO 2 [facility] RBC LM.HPF (Urine sed) [#/Area] None [facility] WBC LM.HPF (Urine sed) [#/Area] None [facility] No Panel Informationon 01-13 [facility] UA w/Reflex Cultureon 2024 Bilirubin, SemiQt,Ur Negative Normal NEG [facility] Comment on above: Performed By: #### C ALEXA CP, MG #### [facility] [address] [place] [address] Process Engineering Technician: Cholo Alicea MD Blood, Urine Negative Normal NEG [facility] Comment on above: Performed By: #### C ALEXA CP, MG #### [facility] [address] [place] [address] Process Engineering Technician: Cholo Alicea MD Clarity (U) Clear Normal CLEAR [facility] Comment on above: Performed By: #### C ALEXA CP, MG #### [facility] [address] [place], [place] [id number] Process Engineering Technician: Cholo Alicea MD Color (U) Yellow Normal YEL [facility] Comment on above: Performed By: #### C DP, CP, MG #### [facility] [address] [place], [place] [id number] Process Engineering Technician: Cholo Alicea MD Glucose Ql (U) Negative Normal NEG [facility] in Hospital Comment on above: Performed By: #### C DP, CP, MG #### [facility] [address] [place] [address] [place] [place], [place] [id number] Process Engineering Technician: Cholo Alicea MD Ketones Ql (U) Negative Normal NEG [facility] in Hospital Comment on above: Performed By: #### C DP, CP, MG #### [address] [place] [address] Process Engineering Technician: Cholo Alicea MD Leukocyte esterase Test strip Ql (U) Negative Normal NEG [facility] Comment on above: Performed By: #### C DP, CP, MG #### [address] [place], [place] [id number] Process Engineering Technician: Cholo Alicea MD Nitrite,Ur Negative Normal [facility] Comment on above: Performed By: #### C DP, CP, MG #### [facility] [address] [place] [address] [place] [address] Process Engineering Technician: Cholo Alicea MD PH,Ur 7.0 Normal 5.0-9.0 [facility] Comment on above: Performed By: #### C DP, CP, MG #### [facility] [address] [place] [address] [place] [address] Process Engineering Technician: Cholo Alicea MD Protein Ql (U) Negative Normal NEG [facility] in Hospital Comment on above: Performed By: #### C DP, CP, MG #### [facility] [address] [place] [address] [address] [place], [place] [id number] Process Engineering Technician: Cholo Alicea MD Spec. Cataldo,Ur 1.015 Normal 1.010-1.020 [facility] Comment on above: Performed By: #### C DP, CP, MG #### [facility] [address] [place] [address] Process Engineering Technician: Cholo Alicea MD Urobilinogen,Ur Normal Normal 0.0-1.0 [facility] Comment on above: Performed By: #### C DP, CP, MG #### [facility] [address] [place] [address] Process Engineering Technician: Cholo Alicea MD Urinalysis with Reflex to Cu ltureon 01-13-2025 Bilirubin Ql (U) Negative NEGATIVE [facility] Clarity (U) Clear Clear [facility] Color (U) Yellow Yellow [facility] Glucose Test strip (U) [Mass/Vol] Negative NEGATIVE mg/dL [facility] Hemoglobin Auto test strip Ql (U) Negative NEGATIVE [facility] Ketones (U) [Mass/Vol] Negative NEGAT BENI mg/dL [facility] Leukocyte esterase Test strip Ql (U) Negative NEGATIVE [facility] Nitrite Ql (U) Negative NEGATIVE [place] [facility] pH (U) 7.0 [pH] 5.0 - 9.0 [facility] Protein (U) [Mass/Vol] Negative NEGAT BENI mg/dL [facility] Specific gravity (U) [Rel density] 1.015 1.010 - 1.020 [facility] Urobilinogen Qn (U) Normal 0.0 - 1. 0 EU/dL [facility] Urinalysis,Microon 5 Epithelial cells LM Ql (Urine sed) 0 TO 2 Normal 0-25 [facility] Comment on above: Performed By: #### C DP CP, MG #### [facility] [address] [place] [address] Process Engineering Technician: Cholo Alicea MD Urine RBC's None Normal 0-2 [facility] Comment on above: Performed By: #### C DP, CP, MG #### [facility] [address] [place] [address] Process Engineering Technician: Cholo Alicea MD Urine WBC's None Normal 0-5 [facility] Comment on above: Performed By: #### C DP, CP, MG #### [facility] [address] [place] [address] Process Engineering Technician: Cholo Alicea MD Urine Drug Screenon 01-14-20 25 Amphetamines Ql (U) Negative NEGATIVE [facility] Comment on above: Cutoff: 1000 ng/mL Barbiturates Screen Ql (U) Negative NEGATIVE [facility] Comment on above: Cutoff: 200 ng/ml Benzodiazepines Ql (U) Positive Abnormal NEGATIVE [place] [facility] Comment on above: Cutoff: 200 ng/ml Cannabinoids Screen Ql (U) Negative NEGATIVE [facility] Comment on above: Cutoff: 50 ng/ml Cocaine Ql (U) Negative NEGATIVE [place] [facility] Comment on above: Cutoff: 300 ng/ml fentaNYL Ql (U) Negative NEGATIVE [facility] Comment on above: Cutoff: 5 ng/ml Interpretation and review of laboratory results Abnormal [facility] Methadone Ql (U) Negative NEGATIVE [facility] Comment on above: Cutoff: 300 ng/ml Opiates Screen Ql (U) Negative NEGATIVE [facility] Comment on above: Cutoff: 300 ng/ml Note: The Opiate screen is not intended to detect Oxycodone. oxyCODONE Ql (U) Negative NEGATIVE [facility] Comment on above: Cutoff: 100 ng/ml Phencyclidine Ql (U) Negative NEGATIVE [facility] Comment on above: Cutoff: 25 ng/ml Test Information This method is a screening test to detect only these drug classes as part of a medical workup. Confirmatory testing by another method should be ordered if clinically indicated. [facility] CBC with Auto Differentialon 01-11-2025 Basophils (Bld) [#/Vol] 0.08 10*3/uL [facility] Basophils/100 WBC (Bld) 1 % 0 - 2 % [facility] Eosinophils (Bld) [#/Vol] 0.06 10*3/uL [facility] Eosinophils/100 WBC (Bld) 1 % 1 - 4 % [facility] Erythrocyte distribution width (RBC) [Ratio] 12.0 % 11.8 - 14.4 % [facility] Hematocrit (Bld) [Volume fraction] 39.2 % 36.3 - 47.1 % [facility] Hemoglobin (Bld) [Mass/Vol] 13.6 g/dL 11.9 - 15.1 g/dL [facility] Immature granulocytes (Bld) [#/Vol] 0.03 10*3/uL [facility] Immature granulocytes/100 WBC (Bld) 0 % 0 [facility] Lymphocytes/100 WBC (Bld) 38 % 24 - 43 % [facility] Lymphocytes/100 WBC (Bld) 3.52 % [facility] MCH (RBC) [Entitic mass] 31.1 pg 25.2 - 33.5 pg [facility] MCHC (RBC) [Mass/Vol] 34.7 g/dL 28.4 - 34.8 g/dL [facility] MCV (RBC) [Entitic vol] 89.5 fL 82.6 - 102.9 fL [facility] Monocytes/100 WBC (Bld) 7 % 3 - 12 % B on [facility] Monocytes/100 WBC (Bld) 0.65 % [facility] Neutrophils/100 WBC (Bld) 53 % 36 - 65 % [facility] Nucleated RBC/100 WBC (Bld) [Ratio] 0.0 % 0.0 per 100 WBC [facility] Platelet mean volume (Bld) [Entitic vol] 10.8 fL 8.1 - 13.5 fL [facility] Platelets (Bld) [#/Vol] 272 10*3/uL [facility] RBC (Bld) [#/Vol] 4.38 10*6/uL 3.95 - 5.1 1 m/uL [facility] Segmented neutrophils/100 WBC (Bld) 4.96 % [facility] WBC other (Bld) [#/Vol] 9.3 B on [facility] CBC with Diffon 01-11-2025 Abs. Basophil 0.08 k/uL Normal 0.00-0.[address] [facility] Comment on above: Performed By: #### C DP, CP, MG #### [facility] [address] [place], [place] [address] Process Engineering Technician: Cholo Alicea MD Abs.Imm.Granulocyte 0.03 k/uL Normal 0.00-0.30 [facility] Comment on above: Performed By: #### C DP, CP, MG #### [address] [place] [address] Process Engineering Technician: Cholo Alicea MD Abs.Neutrophil (Seg) 4.96 k/uL Normal 1.50-8.10 [facility] Comment on above: Performed By: #### C DP, CP, MG #### [address] [place], [place] [address] Process Engineering Technician: Cholo Alicea MD Basophils/100 WBC (Bld) 1 % Normal 0-2 [facility] Comment on above: Performed By: #### C DP, CP, MG #### [address] [place], [place] [address] Process Engineering Technician: Cholo Alicea MD Eosinophils (Bld) [#/Vol] 0.06 10*3/uL Normal 0.00-0.44 [facility] Comment on above: Performed By: #### C DP, CP, MG #### [address] [place] [address] Process Engineering Technician: Cholo Alicea MD Eosinophils/100 WBC (Bld) 1 % Normal 1-4 [facility] Comment on above: Performed By: #### C DP, CP, MG #### [facility] [address] [place], [facility] Process Engineering Technician: Cholo Alicea MD Erythrocyte distribution width (RBC) [Ratio] 12.0 % Normal 11.8-14.4 [facility] Comment on above: Performed By: #### C DP, CP, MG #### [address] [place], [facility] Process Engineering Technician: Cholo Alicea MD Hematocrit (Bld) [Volume fraction] 39.2 % Normal 36.3-47.1 [facility] Comment on above: Performed By: #### C DP, CP, MG #### [address] [place] [address] Process Engineering Technician: Cholo Alicea MD Hemoglobin (Bld) [Mass/Vol] 13.6 g/dL Normal 11.9-15.1 [facility] Comment on above: Performed By: #### C DP, CP, MG #### [address] [place], [facility] Process Engineering Technician: Cholo Alicea MD Immature granulocytes/100 WBC (Bld) 0 % Normal 0 [facility] Comment on above: Performed By: #### C DP, CP, MG #### [address] [place], [facility] Process Engineering Technician: Cholo Alicea MD Lymphocytes (Bld) [#/Vol] 3.52 10*3/uL Normal 1.10-3.70 [facility] Comment on above: Performed By: #### C DP, CP, MG #### [address] [place] [address] Process Engineering Technician: Cholo Alicea MD Lymphocytes/100 WBC (Bld) 38 % Normal 24-43 [facility] Comment on above: Performed By: #### C DP, CP, MG #### [address] [place] [facility] Process Engineering Technician: Cholo Alicea MD MCH (RBC) [Entitic mass] 31.1 pg Normal 25.2-33.5 [facility] Comment on above: Performed By: #### C DP, CP, MG #### [address] [place], [facility] Process Engineering Technician: Cholo Alicea MD MCHC (RBC) [Mass/Vol] 34.7 g/dL Normal 28.4-34.8 [facility] Comment on above: Performed By: #### C DP, CP, MG #### [address] [place] [address] Process Engineering Technician: Cholo Alicea MD MCV (RBC) [Entitic vol] 89.5 fL Normal 82.6-102.9 [facility] Comment on above: Performed By: #### C DP, CP, MG #### [address] [place], [facility] Process Engineering Technician: Cholo Alicea MD Monocytes (Bld) [#/Vol] 0.65 10*3/uL Normal 0.10-1.20 [facility] Comment on above: Performed By: #### C DP, CP, MG #### [address] [place], [facility] Process Engineering Technician: Cholo Alicea MD Monocytes/100 WBC (Bld) 7 % Normal 3-12 [facility] Comment on above: Performed By: #### C DP, CP, MG #### [address] [place], [facility] Process Engineering Technician: Cholo Alicea MD Neutrophil (Seg) 53 % Normal 36-65 [facility] Comment on above: Performed By: #### C DP, CP, MG #### [address] [place], [facility] Process Engineering Technician: Cholo Alicea MD NRBC Automated 0.0 per 100 WBC Normal 0.0 [facility] Comment on above: Performed By: #### C DP, CP, MG #### [facility] [address] [place], [place] [id number] Process Engineering Technician: Cholo Alicea MD Platelet mean volume (Bld) [Entitic vol] 10.8 fL Normal 8.1-13.5 [facility] Comment on above: Performed By: #### C DP, CP, MG #### [facility] [address] [place] [address] Process Engineering Technician: Cholo Alicea MD Platelets (Bld) [#/Vol] 272 10*3/uL Normal 138-453 [facility] Comment on above: Performed By: #### C DP, CP, MG #### [address] [place], [place] [address]3 Process Engineering Technician: Cholo Alicea MD RBC (Bld) [#/Vol] 4.38 10*6/uL Normal 3.95-5.11 [facility] Comment on above: Performed By: #### C DP, CP, MG #### [address] [place], [place] 279[address]283 Process Engineering Technician: Cholo Alicea MD WBC (Bld) [#/Vol] 9.3 10*3/uL Normal 3.5-11.3 [facility] Comment on above: Performed By: #### C DP, CP, MG #### [address] [place], [place] 8026483 Process Engineering Technician: [facility]olo [facility] Albumin [Mass/Vol] 4.1 g/dL 3.5 - 5.2 g/dL [facility] Albumin/Globulin [Mass ratio] 1.4 {ratio} 1.0 - 2.5 [facility] ALP [Catalytic activity/Vol] 54 U/L 35 - 104 U/L [facility] ALT [Catalytic activity/Vol] 14 U/L 10 - 35 U/L [facility] Anion gap [Moles/Vol] 14 mmol/L 9 - 16 mmol/L [facility] AST [Catalytic activity/Vol] 19 U/L 10 - 35 U/L [facility] Bilirubin [Mass/Vol] mg/dL 0.00 - 1.20 mg/dL [facility] Calcium [Mass/Vol] 9.2 mg/dL 8.6 - 10. 4 mg/dL [facility] Chloride [Moles/Vol] 105 mmol/L 98 - 10 7 mmol/L [facility] CO2 [Moles/Vol] 21 mmol/L 20 - 31 mmol/L [facility] Creatinine [Mass/Vol] 0.8 mg/dL 0.50 - 0.90 mg/dL [facility] Est, Mayra Cooley Rate - PINF [facility] Comment on above: These results are not [...] that affects renal tubular secretion. Glucose [Mass/Vol] 100 mg/dL High 74 - 99 mg/dL [facility] Interpretation and review of laboratory results Abnormal [facility] Potassium [Moles/Vol] 3.9 mmol/L 3.7 - 5.3 mmol/L [facility] Protein [Mass/Vol] 7.0 g/dL 6.6 - 8.7 g/dL [facility] Sodium [Moles/Vol] 140 mmol/L 136 - 145 mmol/L [facility] Urea nitrogen [Mass/Vol] 11 mg/dL 6 - 20 mg/dL [facility] Urea nitrogen/Creatinine [Mass ratio] 14 mg/mg 9 - 20 [facility] [place]en 01-11-2025 LILIYAN Telephone ([id number]) CHINEDUCARI ([id number]) 1995 F Date Time Provider Department 01/11/25 PRISCILLA GONZALES [id number] During your visit today, we recorded the following information about you: Destiny [place]ves 01/11/2025 4:59 PM Signed Seizure activity: Name of Caller : Cari Maury Quijano Relationship to patient: Self Contact phone number: [phone] (home) Date of seizure: 01/11/25 Duration: unsure Back to Baseline (Yes/No): yes Emergency treatment needed (Yes/No): no Patient of Anitra Schumacher RN 01/11/2025 5:03 PM Signed Ajith Gutierrez, Just saw this encounter, came across late. If you have time could you call patient? Thank you KATHERINE Asif Haley, GURJ[employer] 01/11/2025 7:21 PM Signed Returned call to patient. She endorses history of PNES, from EEG report episodes described as pain in the left side of head, strange smell, unable to open eyes or speak. She also had episodes where she felt nauseated, spinning, and shaky. She is due to follow up with CBT provider next week. She states her symptoms have changed. She is feeling shaky, off, drooling, staring off, and blurred vision. She endorses having multiple per day. Recommended to be evaluated at local ER if she continues to feel this way. Recommended to follow up with office on Tuesday, if still having symptoms may need urgent EMU (EMU currently full). Brenda Quintero NP Allergies As of Date: 01/11/2025 (Not on File) Date Reviewed: Never Reviewed Reason for Visit: Seizures [97] Prescriptions as of 01/14/2025 - divalproex DR (DEPAKOTE) 250 mg EC tablet Take 250 mg by mouth three times a day. - Desogestrel-Ethinyl Estradiol (APRI) 0.15-0.03 mg per tablet Take 1 tablet by mouth once daily. - ALBUTEROL INHALATION Inhale as instructed. - magnesium oxide (MAG-OX) 400 mg (241.3 mg magnesium) tablet Take 400 mg by mouth once daily. - riboflavin, vitamin B2, (VITAMIN B-2 ORAL) Take by mouth. - ubrogepant (UBRELVY) 50 mg tablet Take 50 mg by mouth once daily as needed for migraine headache (see administration instructions). - desvenlafaxine ER (PRISTIQ) 25 mg 24 hr tablet TAKE 1 TABLET BY MOUTH DAILY FOR MOOD - omeprazole (PRILOSEC) 20 mg capsule Take 20 mg by mouth. - fexofenadine (RADHA) 180 mg tablet Take 180 mg by mouth. 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 [address] Process Engineering Technician: Cholo Alicea MD Albumin/Glob Ratio 1.4 Normal 1.0-2.5 [facility] Comment on above: Performed By: #### C DP, CP, MG #### [facility] [address] [place] [address] Process Engineering Technician: Cholo Alicea MD Alkaline Phos 54 U/L Normal 35-[address] [facility] Comment on above: Performed By: #### C DP, CP, MG #### [facility] [address] [place] [address] Process Engineering Technician: Cholo Alicea MD ALT [Catalytic activity/Vol] 14 U/L Normal 10-35 [facility] Comment on above: Performed By: #### C DP, CP, MG #### [facility] [address] [place], [place] 2330383 Process Engineering Technician: Cholo Alicea MD Anion gap [Moles/Vol] 14 mmol/L Normal 9-16 [facility] Comment on above: Performed By: #### C DP, CP, MG #### [facility] [address] [place], [place] 7600683 Process Engineering Technician: Cholo Alicea MD AST [Catalytic activity/Vol] 19 U/L Normal 10-35 [facility] Comment on above: Performed By: #### C DP, CP, MG #### [address] [place], [place] 7827183 Process Engineering Technician: Cholo Alicea MD Bilirubin [Mass/Vol] mg/dL Normal 0.00-1.20 [facility] Comment on above: Performed By: #### C DP, CP, MG #### [facility] [address] [place] [address] [place], [place] 4037183 Process Engineering Technician: Cholo Alicea MD BUN/CRE Ratio 14 Normal 9-[address] [facility] Comment on above: Performed By: #### C DP, CP, MG #### [address] [place], [place] 9478383 Process Engineering Technician: Cholo Alicea MD Calcium [Mass/Vol] 9.2 mg/dL Normal 8.6-10.4 [facility] Comment on above: Performed By: #### C DP, CP, MG #### [facility] [address] [place] [address] [place], [place] [id number] Process Engineering Technician: Cholo Alicea MD Chloride [Moles/Vol] 105 mmol/L Normal 98-107 [facility] Comment on above: Performed By: #### C DP, CP, MG #### [facility] [address] [place] [address] [place], [place] 9760183 Process Engineering Technician: Cholo Alicea MD CO2 [Moles/Vol] 21 mmol/L Normal 20-31 [facility] Comment on above: Performed By: #### C DP, CP, MG #### [facility] [address] [place] [address] Process Engineering Technician: Cholo Alicea MD Creatinine [Mass/Vol] 0.8 mg/dL Normal 0.50-0.90 [facility] Comment on above: Performed By: #### C DP, CP, MG #### [facility] [address] [place] [address] Process Engineering Technician: Cholo Alicea MD GFR/1.73 sq M.predicted among non-blacks MDRD (S/P/Bld) [Vol rate/Area] mL/min/{1.73_m2} Normal >60 [facility] Comment on above: Result Comment: These results [...] secretion. Performed By: #### C DP, CP, MG #### [facility] [address] [place] [address] Process Engineering Technician: Cholo Alicea MD Glucose [Mass/Vol] 100 mg/dL High 74-99 [facility] Comment on above: Performed By: #### C DP, CP, MG #### [facility] [address] [place] [address] Process Engineering Technician: Cholo Alicea MD Potassium [Moles/Vol] 3.9 mmol/L Normal 3.7-5.3 [facility] Comment on above: Performed By: #### C DP, CP, MG #### [facility] [address] [place] [address] Process Engineering Technician: Cholo Alicea MD Protein [Mass/Vol] 7.0 g/dL Normal 6.6-8.7 [facility] Comment on above: Performed By: #### C DP, CP, MG #### [facility] [address] [place], [place] 3547583 Process Engineering Technician: Cholo Alicea MD Sodium [Moles/Vol] 140 mmol/L Normal 136-145 [facility] Comment on above: Performed By: #### C DP, CP, MG #### [facility] [address] [place], [place] 2344583 Process Engineering Technician: Cholo Alicea MD Urea nitrogen [Mass/Vol] 11 mg/dL Normal 6-20 [facility] Comment on above: Performed By: #### C DP, CP, MG #### [facility] [address] [place], [place] 9549183 Process Engineering Technician: Cholo Alicea MD HCG Qualitative, Serumon HCG ( test) Ql Negative NEGATIVE B on [facility] Comment on above: Specimens with hCG l evels near the threshold of the test (25 mIU/mL) may give a negative or indeterminate result. In such cases, another test should be performed with a new specimen in 48-72 hours. If early is suspected clinically in this setting, correlation with quantitative serum b-hCG level is suggested. Bon [facility] HCG Screen, Bloodon 01-12-20 25 HCG Screen, Blood Negative Normal NEG [facility] Comment on above: Result Comment: Spec imens with hCG levels near the threshold of the test (25 mIU/mL) may give a negative or indeterminate result. In such cases, another test should be performed with a new specimen in 48-72 hours. If early is suspected clinically in this setting, correlation with quantitative serum b-hCG level is suggested. Performed By: #### C DP, CP, MG #### [facility] [address] [place] [address] Process Engineering Technician: Cholo Alicea MD Magnesiumon 01-11-2025 Magnesium [Mass/Vol] 1.9 mg/dL 1.6 - 2 .6 mg/dL [facility] Magnesium [Mass/Vol] 1.9 mg/dL Normal 1.6-2.6 [facility] Comment on above: Performed By: #### C DP, CP, MG #### [facility] [address] [place] [address] Process Engineering Technician: Cholo Alicea MD Microscopic Urinalysison Amorphous sediment LM Ql (Urine sed) TRACE Abnormal None [facility] Bacteria LM Ql (Urine sed) 1+ Abnormal None [facility] Epithelial cells LM.HPF (Urine sed) [#/Area] 0 TO 2 [facility] Interpretation and review of laboratory results Abnormal [facility] Mucus Ql (Urine sed) TRACE Abnormal None [facility] RBC LM.HPF (Urine sed) [#/Area] 0 TO 2 [facility] WBC LM.HPF (Urine sed) [#/Area] 0 TO 2 [facility] No Panel Informationon 01-11 [facility] Urinalysison 01-11-2025 Bilirubin Ql (U) Negative NEGATIVE [facility] Clarity (U) Clear Clear [facility] Color (U) Yellow Yellow [facility] Health Glucose Test strip (U) [Mass/Vol] Negative NEGATIVE mg/dL [facility] [place] Hemoglobin Auto test strip Ql (U) Negative NEGATIVE [facility] Interpretation and review of laboratory results Abnormal [facility] Ketones (U) [Mass/Vol] TRACE Abnormal NEGAT BENI mg/dL [facility] [place] Leukocyte esterase Test strip Ql (U) Negative NEGATIVE [facility] Health Nitrite Ql (U) Negative NEGATIVE [place] [facility] Health pH (U) 7.5 [pH] 5.0 - 9.0 [facility] Protein (U) [Mass/Vol] Negative NEGAT BENI mg/dL [facility] Specific gravity (U) [Rel density] 1.020 1.010 - 1.020 [facility] Urobilinogen Qn (U) Normal 0.0 - 1. 0 EU/dL [facility] Urinalysis, Routineon 2024 Bilirubin, SemiQt,Ur Negative Normal NEG [facility] Comment on above: Performed By: #### U MICAO, UA #### [facility] [address] [place] [address] Process Engineering Technician: Cholo Alicea MD Blood, Urine Negative Normal NEG [facility] Comment on above: Performed By: #### U MICAO, UA #### [facility] [address] [place], [facility] Process Engineering Technician: Cholo Alicea MD Clarity (U) Clear Normal CLEAR [facility] Comment on above: Performed By: #### U MICAO, UA #### [facility] [address] [place] [address] Dr. [place], [facility] Process Engineering Technician: Cholo Alicea MD Color (U) Yellow Normal YEL [facility] Comment on above: Performed By: #### U MICAO, UA #### [address] [place], [facility] Process Engineering Technician: Cholo Alicea MD Glucose Ql (U) Negative Normal NEG [facility] Comment on above: Performed By: #### U MICAO, UA #### [facility] [address] [place] [address] Dr. [place], [facility] Process Engineering Technician: Cholo Alicea MD Ketones Ql (U) TRACE Abnormal NEG [facility] Comment on above: Performed By: #### U MICAO, UA #### [address] [place] [address] Process Engineering Technician: Cholo Alicea MD Leukocyte esterase Test strip Ql (U) Negative Normal NEG [facility] Comment on above: Performed By: #### U MICAO, UA #### [facility] [address] [place] [address] [place] [address] Process Engineering Technician: Cholo Alicea MD Nitrite,Ur Negative Normal NEG [facility] Comment on above: Performed By: #### U MICAO, UA #### [facility] [address] [place] [address] Dr[place], [place] 3161883 Process Engineering Technician: Cholo Alicea MD PH,Ur 7.5 Normal 5.0-9.0 [facility] Comment on above: Performed By: #### U MICAO, UA #### [facility] [address] [place] [address] [place] [address] Process Engineering Technician: Cholo Alicea MD Protein Ql (U) Negative Normal NEG [facility] Comment on above: Performed By: #### U MICAO, UA #### [address] [place], [place] 34[address]283 Process Engineering Technician: Cholo Alicea MD Spec. Cataldo,Ur 1.020 Normal 1.010-1.020 [facility] Comment on above: Performed By: #### U MICAO, UA #### [address] [place] [address] Process Engineering Technician: Cholo Alicea MD Urobilinogen,Ur Normal Normal 0.0-1.0 [facility] Comment on above: Performed By: #### U MICAO, UA #### [facility] [address] [place] [address] [place] [address] Process Engineering Technician: Cholo Alicea MD Urinalysis,Microon 5 Amorphous sediment LM Ql (Urine sed) TRACE Abnormal [facility] Comment on above: Performed By: #### U MICAO, UA #### [address] [place], [place] 37[address]83 Process Engineering Technician: Cholo Alicea MD Bacteria 1+ Abnormal [facility] Comment on above: Performed By: #### U MICAO, UA #### [facility] [address] [place], [place] 1784283 Process Engineering Technician: Cholo Alicea MD Epithelial cells LM Ql (Urine sed) 0 TO 2 Normal 0-25 [facility] Comment on above: Performed By: #### U MICAO, UA #### [facility] [address] [place], [place] 7307383 Process Engineering Technician: Cholo Alicea MD Mucus Strands TRACE Abnormal NONE [facility] Comment on above: Performed By: #### U MICAO, UA #### [facility] [address] [place], [place] 0[address]83 Process Engineering Technician: Cholo Alicea MD Urine RBC's 0 TO 2 Normal 0-2 [facility] Comment on above: Performed By: #### U MICAO, UA #### [facility] [address] [place], [place] 7340583 Process Engineering Technician: Cholo Alicea MD Urine WBC's 0 TO 2 Normal 0-5 [facility] Comment on above: Performed By: #### U MICAO, UA #### [address] [place], [place] 077[address]83 Process Engineering Technician: Cholo Alicea MD Valproic Acidon 01-11-2025 Valproic Acid 64 ug/mL Normal 50-[address] [facility] Comment on above: Performed By: #### C DP, CP, MG #### [facility] [address] [place], [place] 7947183 Process Engineering Technician: Cholo Alicea MD Valproic Acid Level, Totalon 01-11-2025 Valproate [Mass/Vol] 64 ug/mL 50 - 12 5 ug/mL [facility] MR CERVICAL SPINE WO CONTon 12-31-2024 MR CERVICAL SPINE WO CONT MR CERVICAL SPINE WO CONT Study: Cervical spine MRI without contrast. History: Left C4 symptoms, neck pain.. Comparison: None. Technique: Routine multiplanar multisequence MR imaging of the cervical spine was performed without contrast. Findings: Preserved cervical vertebral body heights. No substantial listhesis. No suspicious bone marrow replacing process. No robust bone marrow edema. Cord visualized from brain stem through the upper thoracic spine. No cervical cord compression, morphologic distortion or cord signal abnormality. Multilevel discogenic disease, volunteer patient representative levels detailed below: C2-C3: No significant focal thecal sac or neural foraminal narrowing. C3-C4:No significant focal thecal sac or neural foraminal narrowing. C4-C5:No significant focal thecal sac or neural foraminal narrowing. C5-C6:No significant focal thecal sac or neural foraminal narrowing. Questionable signal abnormality within left C5 nerve at the cranial aspect interscalene triangle [series 12 image #[id number]] C6-C7:No significant focal thecal sac or neural foraminal narrowing. C7-T1:No significant focal thecal sac or neural foraminal narrowing. Subtle apparent asymmetric reduced cross-sectional area left anterior scalene when compared to the right [saved screen shot(s)]. Impression: 1. No significant thecal sac or neural foraminal stenosis. Specifically no substantial neural foraminal stenosis at C3-C4 or C4-5. Question subtle asymmetric signal change within left C5 nerve as it extends through interscalene triangle. Additional questionable asymmetrically reduced cross-sectional area left anterior scalene when compared to the right. If there is ongoing clinical suspicion and/or compelling clinical features, brachial plexus MRI may further assess. Finalized by Ritchie Drew MD on 12/31/2024 4:26 PM Normal [facility] CT ABDOMEN AND PELVIS W CONT on 10-05-2024 CT ABDOMEN AND PELVIS W CONT CT ABDOMEN AND PELVIS W CONT ABDOMEN AND PELVIS CT WITH CONTRAST HISTORY: [...] Parker Trinidad MD on 10/05/2024 1:10 AM Normal [facility] TROP I, HIGH SENSITIVITY 1 H OURon 10-05-2024 TROPONIN I, HIGH SENSITIVITY <^2 Normal <16 [facility] Comment on above: Performed By: #### C OSWALDO 3040-3, REAGAN BMP #### [facility] ([id number]) [address] [place] [address] 02092 XR CHEST 1 VWon 10-05-2024 XR CHEST 1 VW XR CHEST 1 VW HISTORY: Chest pain, fever COMPARISON: Chest x-ray 07/13/2024 FINDINGS: AP upright view of the chest was performed. Heart size is normal. Lungs demonstrate no significant airspace consolidation or vascular congestion. There is no pneumothorax or pleural effusion. IMPRESSION: * No acute abnormality. Finalized by Parker Trinidad MD on 10/05/2024 1:03 AM Normal [facility] CBC WITH AUTO DIFFERENTIALon 10-04-2024 BASOPHILS ABSOLUTE COUNT (10*3/UL) BY AUTOMATED COUNT 0.0 10*3/uL Normal 0.0-0.2 [facility] Comment on above: Performed By: #### C OSWALDO, 3040-3, LIVR, BMP #### [facility] ([id number]) [address] [place] [address] 62932 BASOPHILS RELATIVE PERCENT BY AUTOMATED COUNT 0.3 % Normal [facility] Comment on above: Performed By: #### C BCA, 3040-3, LIVR, BMP #### [facility] ([id number]) [address] [place] [address] 65794 CELLAVISION DIFFERENTIAL TYPE AUTOMATED DIFFERENTIAL Normal [facility] Comment on above: Performed By: #### C OSWALDO, 3040-3, LIVR, BMP #### [facility] ([id number]) [address] [place] [address] 53852 Eosinophils (Bld) [#/Vol] 0.1 10*3/uL Normal 0.0-0.4 [facility] Comment on above: Performed By: #### C OSWALDO, 3040-3, LIVR, BMP #### [facility] ([id number]) [address] [place] [address] 76405 EOSINOPHILS RELATIVE PERCENT BY AUTOMATED COUNT 0.7 % Normal [facility] Comment on above: Performed By: #### C OSWALDO, 3040-3, LIVR, BMP #### [facility] ([id number]) [address] [place] [address] 64245 Erythrocyte distribution width (RBC) [Ratio] 13.4 % Normal 11.5-15 [facility] Comment on above: Performed By: #### C OSWALDO, 3040-3, LIVR, BMP #### [facility] ([id number]) [address] [place] [address] 91910 Hematocrit (Bld) [Volume fraction] 38.0 % Normal 35-47 [facility] Comment on above: Performed By: #### C OSWALDO, 3040-3, LIVR, BMP #### [facility] ([id number]) [address] [place] [address] 78285 Hemoglobin (Bld) [Mass/Vol] 13.0 g/dL Normal 11.7-15.5 [facility] Comment on above: Performed By: #### C OSWALDO, 3040-3, LIVR, BMP #### [facility] ([id number]) [address] [place] [address] 45364 LYMPHOCYTES ABSOLUTE COUNT (10*3/UL) BY AUTOMATED COUNT 3.6 10*3/uL High 1.0-3.5 [facility] Comment on above: Performed By: #### Franco CHACON, 3040-3, LIVR, BMP #### [facility] ([id number]) [address] [place] [address] 58609 LYMPHOCYTES RELATIVE PERCENT BY AUTOMATED COUNT 37.1 % Normal [facility] Comment on above: Performed By: #### Franco CHACON, 3040-3, LIVR, BMP #### [facility] ([id number]) [address] [place] [address] 69905 MCH (RBC) [Entitic mass] 30.4 pg Normal 27-34 [facility] Comment on above: Performed By: #### Franco CHACNO, 3040-3, LIVR, BMP #### [facility] ([id number]) [address] [place] [address] 50652 MCHC (RBC) [Mass/Vol] 34.2 g/dL Normal 32-36 [facility] Comment on above: Performed By: #### Franco CHACON, 3040-3, LIVR, BMP #### [facility] ([id number]) [address] [place] [address] 05153 MCV (RBC) [Entitic vol] 89 fL Normal 80-100 [facility] Comment on above: Performed By: #### Franco CHACON, 3040-3, LIVR, BMP #### [facility] ([id number]) [address] [place] [address] 44276 MONOCYTES ABSOLUTE COUNT (10*3/UL) BY AUTOMATED COUNT 0.7 10*3/uL Normal 0.0-0.9 [facility] Comment on above: Performed By: #### Franco CHACON, 3040-3, LIVR, BMP #### [facility] ([id number]) [address] [place] [address] 56136 MONOCYTES RELATIVE PERCENT BY AUTOMATED COUNT 7.0 % Normal [facility] Comment on above: Performed By: #### Franco CHACON, 3040-3, LIVR, BMP #### [facility] ([id number]) [address] [place] [address] 44544 NEUTROPHILS ABSOLUTE COUNT BY AUTOMATED COUNT 5.3 10*3/uL Normal 1.5-6.6 [facility] Comment on above: Performed By: #### Franco CHACON, 3040-3, LIVR, BMP #### [facility] ([id number]) [address] [place] [address] 87852 NEUTROPHILS RELATIVE PERCENT BY AUTOMATED COUNT 54.9 % Normal [facility] Comment on above: Performed By: #### Franco CHACON, 3040-3, LIVR, BMP #### [facility] ([id number]) [address] [place] [address] 54348 Platelet mean volume (Bld) [Entitic vol] 8.8 fL Normal 7-12 [facility] Comment on above: Performed By: #### Franco CHACON, 3040-3, LIVR, BMP #### [facility] ([id number]) [address] [place] [address] 21102 Platelets (Bld) [#/Vol] 289 10*3/uL Normal 150-450 [facility] Comment on above: Performed By: #### Franco CHACON, 3040-3, LIVR, BMP #### [facility] ([id number]) [address] [place] [address] 30043 RBC COUNT 4.28 X10E12/L Normal 3.8-5.2 [facility] Comment on above: Performed By: #### Franco CHACON, 3040-3, LIVR, BMP #### [facility] ([id number]) [address] [place] [address] 00433 WBC (Bld) [#/Vol] 9.7 10*3/uL Normal 4-11 [facility] Comment on above: Performed By: #### C OSWALDO, 3040-3, LIVR, BMP #### [facility] ([id number]) [address] [place] [address] 21115 COMPREHENSIVE METABOLIC PANE Haile 10-04-2024 Albumin [Mass/Vol] 4.0 g/dL Normal 3.2-5.3 [facility] Comment on above: Performed By: #### C OSWALDO, 3040-3, LIVR, BMP #### [facility] ([id number]) [address] [place] [address] 71219 ALP [Catalytic activity/Vol] 47 U/L Normal 39-130 [facility] Comment on above: Performed By: #### Franco CHACON, 3040-3, LIVR, BMP #### [facility] ([id number]) [address] [place] [address] 04361 ALT [Catalytic activity/Vol] 15 U/L Normal <=31 [facility] Comment on above: Performed By: #### Franco BCA, 3040-3, LIVR, BMP #### [facility] ([id number]) [address] [place] [address] 02725 Anion gap [Moles/Vol] 6 mmol/L Normal 5-15 [facility] Comment on above: Performed By: #### C BCA, 3040-3, LIVR, BMP #### [facility] ([id number]) [address] [place] [address] 50239 AST [Catalytic activity/Vol] 18 U/L Normal <=41 [facility] Comment on above: Performed By: #### C BCA, 3040-3, LIVR, BMP #### [facility] ([id number]) [address] [place] [address] 29437 Bilirubin [Mass/Vol] 0.5 mg/dL Normal 0.3-1.2 [facility] Comment on above: Performed By: #### Franco CHACON, 3040-3, LIVR, BMP #### [facility] ([id number]) [address] [place] [address] 14141 Calcium [Mass/Vol] 8.7 mg/dL Normal 8.5-10.5 [facility] Comment on above: Performed By: #### Franco CHACON, 3040-3, LIVR, BMP #### [facility] ([id number]) [address] [place] [address] 22450 Chloride [Moles/Vol] 108 mmol/L Normal 98-109 [facility] Comment on above: Performed By: #### Franco CHACON, 3040-3, LIVR, BMP #### [facility] ([id number]) [address] [place] [address] 79169 CO2 [Moles/Vol] 24 mmol/L Normal 22-32 [facility] Comment on above: Performed By: #### Franco CHACON, 3040-3, LIVR, BMP #### [facility] ([id number]) [address] [place] [address] 74793 Creatinine [Mass/Vol] 0.92 mg/dL Normal 0.40-1.00 [facility] Comment on above: Result Comment: METH OD TRACEABLE TO IDMS STANDARD Performed By: #### Franco CHACON, 3040-3, LIVR, BMP #### [facility] ([id number]) [address] [place] [address] 34941 GFR/1.73 sq M.predicted among non-blacks MDRD (S/P/Bld) [Vol rate/Area] 88 mL/min/{1.73_m2} Normal >=60 [facility] Comment on above: Result Comment: eGFR not reported due to non-numeric value for Creatinine. Reported eGFR is based on the CKD-EPI 2020 equation that does not use a race coefficient. Performed By: #### C OSWALDO, 3040-3, LIVR, BMP #### [facility] ([id number]) [address] [place] [address] 14721 Glucose [Mass/Vol] 105 mg/dL High 65-99 [facility] Comment on above: Performed By: #### C BCA, 3040-3, LIVR, BMP #### [facility] ([id number]) [address] [place] [address] 33887 Potassium [Moles/Vol] 3.6 mmol/L Normal 3.5-5.0 [facility] Comment on above: Performed By: #### C OSWALDO, 3040-3, LIVR, BMP #### [facility] ([id number]) [address] [place] [address] 57287 Protein [Mass/Vol] 7.1 g/dL Normal 6.0-8.0 [facility] Comment on above: Performed By: #### C OSWALDO, 3040-3, LIVR, BMP #### [facility] ([id number]) [address] [place] [address] 49973 Sodium [Moles/Vol] 138 mmol/L Normal 134-146 [facility] Comment on above: Performed By: #### Franco BCA, 3040-3, LIVR, BMP #### [facility] ([id number]) [address] [place] [address] 73778 Urea nitrogen [Mass/Vol] 13 mg/dL Normal 5-23 [facility] Comment on above: Performed By: #### Franco BCA, 3040-3, LIVR, BMP #### [facility] ([id number]) [address] [place] [address] 83941 LACTATE W/ REFLEXon 05-08-20 25 LACTATE W/REFLEX 0.6 mmol/L Normal 0.4-2.0 [facility] Comment on above: Order Comment: Resul t did not trigger repeat Lactate,re-order if needed. Performed By: #### C BCA, 3040-3, LIVR, BMP #### [facility] ([id number]) [address] [place] [address] 67630 LIPASEon 10-04-2024 Lipase [Catalytic activity/Vol] 49 U/L High 17-40 [facility] Comment on above: Performed By: #### C BCA, 3040-3, LIVR, BMP #### [facility] ([id number]) [address] [place] [address] 57564 POCT NURSING URINE MACROSCOP IC UAon 10-04-2024 BILIRUBIN NADYA Negative Normal Negative [facility] Comment on above: Performed By: #### C BCA, 3040-3, LIVR, BMP #### [facility] ([id number]) [address] [place] [address] 61527 BLOOD/HGB NADYA Negative Normal Negative [facility] Comment on above: Performed By: #### C BCA, 3040-3, LIVR, BMP #### [facility] ([id number]) [address] [place] [address] 10239 GLUCOSE NADYA Negative Normal Negative [facility] Comment on above: Performed By: #### C BCA, 3040-3, LIVR, BMP #### [facility] ([id number]) [address] [place] [address] [place] [address] KETONES NADYA Negative Normal Negative [facility] Comment on above: Performed By: #### C BCA, 3040-3, LIVR, BMP #### [facility] ([id number]) [address] [place] [address] 71008 LEUKOCYTE ESTERASE NADYA Negative Normal Negative [facility] Comment on above: Performed By: #### C BCA, 3040-3, LIVR, BMP #### [facility] ([id number]) [address] [place] [address] 12702 NITRITE NADYA Negative Normal Negative [facility] Comment on above: Performed By: #### C OSWALDO, 0-3, LIVR, BMP #### [facility] ([id number]) [address] [place] [address] 98197 PH NADYA 7.0 Normal 5.0, 6.0, 6.5, 7.0, 7.5, 8.0, 8.5, 5.5 [facility] Comment on above: Performed By: #### C OSWALDO, 0-3, LIVR, BMP #### [facility] ([id number]) [address] [place] [address] 84821 PROTEIN NADYA Negative Normal Negative [facility] Comment on above: Performed By: #### Franco CHACON, 3039-3, LIVR, BMP #### [facility] ([id number]) [address] [place] [address] 92313 SPECIFIC GRAVITY NADYA 1.015 Normal 1.010, 1.015, 1.020, 1.025 [facility] Comment on above: Performed By: #### Franco CHACON, 0-3, LIVR, BMP #### [facility] ([id number]) [address] [place] [address] 55128 UROBILINOGEN NADYA 0.2 E.U./dL Normal [facility] Comment on above: Performed By: #### Franco CHACON, 3040-3, LIVR, BMP #### [facility] ([id number]) [address] [place], [place] [address] SARS/FLU A+B/RSV BY NAAT/MOL ECULAR (M4RT COLLECTION TUBE)on 10-04-2024 SARS/FLU A+B/RSV BY NAAT/MOLECULAR (M4RT COLLECTION TUBE) FLU A PCR Negative FLU B PCR Negative RSV BY PCR Negative SARS COV 2 BY PCR Not Detected Normal Not Detected [facility] Comment on above: Order Comment: The X pert Xpress SARS-CoV-2/Flu/RSV Plus test is a rapid, [...] operators who are performing tests using either Bio[employer] or Telik systems and is limited to laboratories that [...] inhibition unable to be resolved with specimen repeat.Fact Sheet for Healthcare Providers:https://www.fda.gov/media/287209/downloadFact Sheet for Patients:https://www.fda.gov/media/125053/download Performed By: #### C OSWALDO 3040-3, REAGAN, [facility] #### [facility] ([id number]) [address] [place] [address], [place] [address] TROPONIN I, HIGH SENSITIVITY 0 HOURon 10-04-2024 TROPONIN I, HIGH SENSITIVITY <^2 Normal <16 [facility] Comment on above: Performed By: #### C OSWALDO 3040-3, LIVR, BMP #### [facility] ([id number]) [address] [facility] [place] [address] Urinalysis macro (dipstick) panel (U)on 09-26-2024 Bilirubin, UA Negative Negative - 4(70) +++ mg/dL [facility] Blood, UA Negative Negative - 50 Deo/mcL [facility] Clarity, UA Clear [facility] Color, UA Yellow [facility] Glucose, UA Negative Negative - 1999(110) ++++ mg/dL [facility] Interpretation and review of laboratory results Normal [facility] Ketones, UA Negative Negative - 160(16) ++++ mg/dL [facility] Leukocytes, UA Negative Negative - 500+++ Rosalva/mcL [facility] Nitrite, UA Negative Negative - Positive [facility] pH, UA 6 5 - [address] [facility] Protein, UA Negative Negative - 1999(20) ++++ mg/dL [facility] Spec Grav, UA 1.015 1 - 1.[address] [facility] Urobilinogen, UA 0.2 0.2 - 12 mg/dL [facility] CNCONon 08-20-2024 CNCON Consults ([id number]) CARI QUIJANO ([id number]) 1995 F Date Time Provider Department 08/20/24 FANY BOONE NE50MN During your visit today, we recorded the following information about you: Oksana Ha APRN.SPECIAL DIET COOK 08/20/2024 1:13 PM Signed [facility] Review of Records Patient: Cari Quijano Address: [address] [place] [id number] Impression: Review of records for Cari Quijano, a 29 year old female, being referred by Self to Any Epileptologist for further evaluation and treatment. Patient has previously diagnosed seizure like activity. EEG from 2024 reported as normal. MRI from 2024 reported no abnormalities. Patient has trialed 0 AEDs (lorazepam for anxiety). Since she is reporting near-daily seizures and her prior workup is unrevealing, VEEG is indicated for event characterization and diagnostic evaluation to determine best treatment options. Summary: Onset: January 07, 2024 Recent Seizure Frequency: Every other day Seizure Description(s) Available: Type A: Has a warning of brain fog, left sided posterior headache by the base of her neck. This is followed by looking like she is sleeping, eyes close, can hear everything going on around her, but cannot respond at all Duration: 5 minutes to 90 minutes Current AED(s): Lorazepam Previous AED(s): None PMH: migraine headaches, GERD, bipolar disorder, ADHD, PTSD, anxiety PRIOR EVALUATIONS: [facility] [address] [place] [address] VEEG (06/15/2024): No epileptiform discharges or lateralizing signs were seen. Absence of epileptiform discharges does not exclude the diagnosis of epilepsy. EEG (08/13/2024-08/16/2024 ): No clinical events reported during this recording. Clinical Interpretation: Video EEG monitoring documents normal background activity without evidence of any interictal or ictal epileptiform discharges. Three non epileptic clinical events were captured at 15:32, 23:57 on 08/15 and 00:23 on 08/16. MRI brain wo/w contrast (06/15/2024): Normal study [facility]ILMAR Recommendations: - Admit to [facility] for VEEG monitoring, diagnostic evaluation Location: [facility] [place] - Visit with epileptologist prior to admission - Additional testing to be considered by epilepsy clinicians Signed: Oksana Ha APRN.[employer] August 20, [address] Boone for review and recommendations. MD Recommendations (as discussed with Dr. Boone): - Please proceed with the above plan. ===== Please route this encounter to the EMU Scheduling Pool ( P EMU ) or PMU Scheduling Pool ( P PMU ) through LOS AND Follow up ===== PHASE 1.0 AND 1.5 ORDER SYNOPSIS Patient: Cari Quijano ([id number]) Best contact number: [phone] Insurance: Payor: HOLLI / Plan: BLUE CARD PPO OOS / Product Type: PPO / Scheduling Team: Please call for adult patients: EMU coordinator ([phone]) [place] Coordinator ([phone]) PMU coordinator() Last Code Striper [phone]) Please call for pediatric patients: PMU coordinator ([phone]) [place] Coordinator ([phone]) EMU coordinator ([phone]) Last Code Striper ([phone]) 08/20/2024 -- Admission Type EMU Adult Number of Days requested 4 Location [facility] Admit Priority Routine 08/20/2024 PURPOSE Patient Being Considered for Epilepsy Surgery? No VEEG recommended to assess seizure burden, address new AND concerning syymptom-sign complex, and/or clarify syndromic epilepsy diagnosis? Yes 08/20/2024 -- Sphenoidal monitoring No Electrode placement Standard ==== Appointments and Tests EPIL VEEG ADMIT TO EMU/PMU Consultations None ===== Please route this encounter to the EMU Scheduling pool ( P EMU ) or PMU Scheduling pool ( P PMU ) through LOS AND Follow up ===== Scheduling coordinators: For all VNS patients being scheduled for DANIEL, please schedule VNS off/on office visits. Allergies As of Date: 08/20/2024 (Not on File) Date Reviewed: Never Reviewed Primary Visit Diagnosis:Seizure-li ke activity (HCC) [R56.9] Order(s):EPIL VEEG ADMIT TO EMU/PMU [[id number]] Order #: [id number]: 1 Prescriptions as of 08/20/2024 - busPIRone (BUSPAR) 10 mg tablet take 1 tablets by mouth twice a day for 3 days - busPIRone (BUSPAR) (more content not included)... Normal [facility] CBC AND AUTO DIFFon 08-17-19 25 ABSOLUTE BASOPHIL 0.1 X10E9/L Normal 0.0-0.2 [facility] Comment on above: Performed By: #### C BCA, BMP, 5643-2, 4024-6, 3298-7, 57885-3 #### [facility] ([id number]) [address] [place] [address] Basophils/100 WBC (Bld) 1.0 % Normal [facility] Comment on above: Performed By: #### C OSWALDO, BMP, 5643-2, 4024-6, 3298-7, 73154-4 #### [facility] ([id number]) [address], [address] [address] Eosinophils (Bld) [#/Vol] 0.1 10*3/uL Normal 0.0-0.4 [facility] Comment on above: Performed By: #### C OSWALDO, BMP, 5643-2, 4024-6, 3298-7, 48556-3 #### [facility] ([id number]) [address], [facility] [address] [place] [address] Eosinophils/100 WBC (Bld) 1.0 % Normal [facility] Comment on above: Performed By: #### Franco CHACON, BMP, 5643-2, 4024-6, 3298-7, 92744-0 #### [facility] ([id number]) [address], [facility] [address] [place] [address] Erythrocyte distribution width (RBC) [Ratio] 13.1 % Normal 11.5-15.0 [facility] Comment on above: Performed By: #### C BCA, BMP, 5643-2, 4024-6, 3298-7, 90560-8 #### [facility] ([id number]) [address], [address] [place] [address] Hematocrit (Bld) [Volume fraction] 40.3 % Normal 35-47 [facility] Comment on above: Performed By: #### C BCA, BMP, 5643-2, 4024-6, 3298-7, 66894-2 #### [facility] ([id number]) [address], [address] [place] [address] Hemoglobin (Bld) [Mass/Vol] 13.9 g/dL Normal 11.7-15.5 [facility] Comment on above: Performed By: #### C BCA, BMP, 5643-2, 4024-6, 3298-7, 19859-3 #### [facility] ([id number]) [address], [facility] [address] [place] [address] Lymphocytes (Bld) [#/Vol] 4.5 10*3/uL High 1.0-3.5 [facility] Comment on above: Performed By: #### C BCA, BMP, 5643-2, 4024-6, 3298-7, 63051-8 #### [facility] ([id number]) [address], [address] [place] [address] Lymphocytes/100 WBC (Bld) 42.6 % Normal [facility] Comment on above: Performed By: #### C BCA, BMP, 5643-2, 4024-6, 3298-7, 06931-0 #### [facility] ([id number]) [address], [address] [place] [address] MCH (RBC) [Entitic mass] 30.3 pg Normal 27-34 [facility] Comment on above: Performed By: #### C BCA, BMP, 5643-2, 4024-6, 3298-7, 06237-3 #### [facility] ([id number]) [address], [address] [place] [address] MCHC (RBC) [Mass/Vol] 34.5 g/dL Normal 32-36 [facility] Comment on above: Performed By: #### C BCA, BMP, 5643-2, 4024-6, 3298-7, 78949-7 #### [facility] ([id number]) [address], [address] [place] [address] MCV (RBC) [Entitic vol] 88 fL Normal 80-100 P [facility] Comment on above: Performed By: #### C BCA, BMP, 5643-2, 4024-6, 3298-7, 93656-1 #### [facility] ([id number]) [address], [address] [place] [address] Metamyelocytes/100 WBC (Bld) 1.0 % Normal [facility] Comment on above: Performed By: #### C BCA, BMP, 5643-2, 4024-6, 3298-7, 99389-7 #### [facility] ([id number]) [address] [place] [address] Monocytes (Bld) [#/Vol] 0.8 10*3/uL Normal 0-0.9 [facility] Comment on above: Performed By: #### C BCA, BMP, 5643-2, 4024-6, 3298-7, 45241-4 #### [facility] ([id number]) [address], [address] [place] [address] Monocytes/100 WBC (Bld) 7.9 % Normal [facility] Comment on above: Performed By: #### C BCA, BMP, 5643-2, 4024-6, 3298-7, 81431-3 #### [facility] ([id number]) [address], [address] [place] [address] MYELOCYTE 3.0 % Normal [facility] Comment on above: Performed By: #### C BCA, BMP, 5643-2, 4024-6, 3298-7, 10126-3 #### [facility] ([id number]) [address], [address] [place] [address] Neutrophils (Bld) [#/Vol] 4.6 10*3/uL Normal 1.5-6.6 [facility] Comment on above: Performed By: #### C BCA, BMP, 5643-2, 4024-6, 3298-7, 88948-9 #### [facility] ([id number]) [address], [facility] [address] [place] [address] Platelet mean volume (Bld) [Entitic vol] 7.6 fL Normal 7-12 [facility] Comment on above: Performed By: #### C BCA, BMP, 5643-2, 4024-6, 3298-7, 31994-2 #### [facility] ([id number]) [address], [facility] [address] [place] [address] Platelets (Bld) [#/Vol] 325 10*3/uL Normal 150-450 [facility] Comment on above: Performed By: #### C BCA, BMP, 5643-2, 4024-6, 3298-7, 75306-0 #### [facility] ([id number]) [address], [facility] [address] [place] [address] RBC COUNT 4.59 X10E12/L Normal 3.80-5.20 [facility] Comment on above: Performed By: #### C BCA, BMP, 5643-2, 4024-6, 3298-7, 11224-5 #### [facility] ([id number]) [address], [facility] [address] [place] [address] RBC morphology finding Nom (Bld) NORMAL Normal [facility] Comment on above: Performed By: #### C BCA, BMP, 5643-2, 4024-6, 3298-7, 47595-1 #### [facility] ([id number]) [address], [address] [place] [address] SEG NEUTROPHIL 43.5 % Normal [facility] Comment on above: Performed By: #### C BCA, BMP, 5643-2, 4024-6, 3298-7, 45412-0 #### [facility] ([id number]) [address], [address] [place] [address] WBC (Bld) [#/Vol] 10.5 10*3/uL Normal 4.0-11.0 [facility] Comment on above: Performed By: #### C BCA, BMP, 5643-2, 4024-6, 3298-7, 50470-1 #### [facility] ([id number]) [address], [address] [place] [address] COMPREHENSIVE METABOLIC PANE Haile 08-16-2024 Albumin [Mass/Vol] 4.0 g/dL Normal 3.2-5.3 [facility] Comment on above: Performed By: #### C BCA, BMP, 5643-2, 4024-6, 3298-7, 49720-0 #### [facility] ([id number]) [address], [address] [place] [address] ALP [Catalytic activity/Vol] 59 U/L Normal 39-130 [facility] Comment on above: Performed By: #### C BCA, BMP, 5643-2, 4024-6, 3298-7, 96646-0 #### [facility] ([id number]) [address], [address] [place] [address] ALT [Catalytic activity/Vol] 19 U/L Normal 0-31 [facility] Comment on above: Performed By: #### C BCA, BMP, 5643-2, 4024-6, 3298-7, 03406-9 #### [facility] ([id number]) [address], [address] [place] [address] Anion gap [Moles/Vol] 9 mmol/L Normal 5-15 [facility] Comment on above: Performed By: #### C BCA, BMP, 5643-2, 4024-6, 3298-7, 14730-4 #### [facility] ([id number]) [address], [address] [place] [address] AST [Catalytic activity/Vol] 18 U/L Normal 0-41 [facility] Comment on above: Performed By: #### C BCA, BMP, 5643-2, 4024-6, 3298-7, 08595-8 #### [facility] ([id number]) [address], [address] [place] [address] Bilirubin [Mass/Vol] 0.3 mg/dL Normal 0.3-1.2 [facility] Comment on above: Performed By: #### C BCA, BMP, 5643-2, 4024-6, 3298-7, 16110-4 #### [facility] ([id number]) [address], [address] [place] [address] Calcium [Mass/Vol] 9.2 mg/dL Normal 8.5-10.5 [facility] Comment on above: Performed By: #### C BCA, BMP, 5643-2, 4024-6, 3298-7, 75079-9 #### [facility] ([id number]) [address], [address] [place] [address] Chloride [Moles/Vol] 101 mmol/L Normal 98-109 [facility] Comment on above: Performed By: #### C BCA, BMP, 5643-2, 4024-6, 3298-7, 18391-2 #### [facility] ([id number]) [address], [address] [place] [address] CO2 [Moles/Vol] 27 mmol/L Normal 22-32 [facility] Comment on above: Performed By: #### C BCA, BMP, 5643-2, 4024-6, 3298-7, 48089-8 #### [facility] ([id number]) [address] [address] [place] [address] Creatinine [Mass/Vol] 0.66 mg/dL Normal 0.40-1.00 [facility] Comment on above: Result Comment: METH OD TRACEABLE TO IDMS STANDARD Performed By: #### C BCA, BMP, 5643-2, 4024-6, 3298-7, 26510-7 #### [facility] ([id number]) [address], [facility] [address] [place] [address] eGFR (CKD-EPI) NON-RACE DEPENDENT >90 Normal >59 [facility] Comment on above: Result Comment: Reported eGFR is based on the CKD-EPI 2020 equation that does not use a race coefficient. Performed By: #### C BCA, BMP, 5643-2, 4024-6, 3298-7, 46916-0 #### [facility] ([id number]) [address] [address] Glucose [Mass/Vol] 95 mg/dL Normal 65-99 [facility] Comment on above: Performed By: #### C BCA, BMP, 5643-2, 4024-6, 3298-7, 97839-0 #### [facility] ([id number]) [address] [address] Potassium [Moles/Vol] 4.1 mmol/L Normal 3.5-5.0 [facility] Comment on above: Performed By: #### C BCA, BMP, 5643-2, 4024-6, 3298-7, 79768-5 #### [facility] ([id number]) [address] [address] Protein [Mass/Vol] 6.8 g/dL Normal 6.0-8.0 [facility] Comment on above: Performed By: #### C BCA, BMP, 5643-2, 4024-6, 3298-7, 26039-9 #### [facility] ([id number]) [address], [address] [place] [address] Sodium [Moles/Vol] 137 mmol/L Normal 134-146 [facility] Comment on above: Performed By: #### C BCA, BMP, 5643-2, 4024-6, 3298-7, 04955-8 #### [facility] ([id number]) [address], [address] [place] [address] Urea nitrogen [Mass/Vol] 17 mg/dL Normal 5-23 [facility] Comment on above: Performed By: #### C BCA, BMP, 5643-2, 4024-6, 3298-7, 67024-8 #### [facility] ([id number]) [address] [place] [address] CBC AND AUTO DIFFon 08-16-19 25 ABSOLUTE BASOPHIL 0.1 X10E9/L Normal 0.0-0.2 [facility] Comment on above: Performed By: #### C BCA, BMP, 5643-2, 4024-6, 3298-7, 57441-1 #### [facility] ([id number]) [address] [address] Basophils/100 WBC (Bld) 1.0 % Normal [facility] Comment on above: Performed By: #### C BCA, BMP, 5643-2, 4024-6, 3298-7, 54034-8 #### [facility] ([id number]) [address] [address] [place] [address] Eosinophils (Bld) [#/Vol] 0.1 10*3/uL Normal 0.0-0.4 [facility] Comment on above: Performed By: #### C BCA, BMP, 5643-2, 4024-6, 3298-7, 72378-2 #### [facility] ([id number]) [address] [place] [address] Eosinophils/100 WBC (Bld) 1.0 % Normal [facility] Comment on above: Performed By: #### C OSWALDO, BMP, 5643-2, 4024-6, 3298-7, 15353-6 #### [facility] ([id number]) [address] [address] [place] [address] Erythrocyte distribution width (RBC) [Ratio] 13.4 % Normal 11.5-15.0 [facility] Comment on above: Performed By: #### C OSWALDO, BMP, 5643-2, 4024-6, 3298-7, 26908-9 #### [facility] ([id number]) [address] [address] Hematocrit (Bld) [Volume fraction] 39.1 % Normal 35-47 [facility] Comment on above: Performed By: #### C OSWALDO, BMP, 5643-2, 4024-6, 3298-7, 89120-3 #### [facility] ([id number]) [address] [address] [place] [address] Hemoglobin (Bld) [Mass/Vol] 13.2 g/dL Normal 11.7-15.5 [facility] Comment on above: Performed By: #### C OSWALDO, BMP, 5643-2, 4024-6, 3298-7, 68691-7 #### [facility] ([id number]) [address] [address] Lymphocytes (Bld) [#/Vol] 4.7 10*3/uL High 1.0-3.5 [facility] Comment on above: Performed By: #### C BCA, BMP, 5643-2, 4024-6, 3298-7, 85472-7 #### [facility] ([id number]) [address] [address] [place] [address] Lymphocytes/100 WBC (Bld) 50.4 % Normal [facility] Comment on above: Performed By: #### C BCA, BMP, 5643-2, 4024-6, 3298-7, 62493-8 #### [facility] ([id number]) [address] [place] [address] MCH (RBC) [Entitic mass] 30.0 pg Normal 27-34 [facility] Comment on above: Performed By: #### C BCA, BMP, 5643-2, 4024-6, 3298-7, 42302-8 #### [facility] ([id number]) [address], [facility] [address] [place] [address] MCHC (RBC) [Mass/Vol] 33.6 g/dL Normal 32-36 [facility] Comment on above: Performed By: #### C BCA, BMP, 5643-2, 4024-6, 3297-7, 76498-5 #### [facility] ([id number]) [address] [place] [address] MCV (RBC) [Entitic vol] 89 fL Normal 80-100 P [facility] Comment on above: Performed By: #### C OSWALDO, BMP, 5643-2, 4024-6, 329-, 89614-5 #### [facility] ([id number]) [address] [place] [address] Monocytes (Bld) [#/Vol] 0.7 10*3/uL Normal 0-0.9 [facility] Comment on above: Performed By: #### C BCA, BMP, 5643-2, 4024-6, 3298-7, 73645-7 #### [facility] ([id number]) [address], [address] [place] [address] Monocytes/100 WBC (Bld) 7.6 % Normal P [facility] Comment on above: Performed By: #### C BCA, BMP, 5643-2, 4024-6, 3298-7, 28589-7 #### [facility] ([id number]) [address], [address] [place] [address] Neutrophils (Bld) [#/Vol] 3.7 10*3/uL Normal 1.5-6.6 [facility] Comment on above: Performed By: #### C BCA, BMP, 5643-2, 4024-6, 3298-7, 20254-4 #### [facility] ([id number]) [address], [address] [place] [address] Platelet mean volume (Bld) [Entitic vol] 8.0 fL Normal 7-12 [facility] Comment on above: Performed By: #### C BCA, BMP, 5643-2, 4024-6, 3298-7, 56869-7 #### [facility] ([id number]) [address], [address] [place] [address] Platelets (Bld) [#/Vol] 313 10*3/uL Normal 150-450 [facility] Comment on above: Performed By: #### C BCA, BMP, 5643-2, 4024-6, 3298-7, 47479-1 #### [facility] ([id number]) [address], [address] [place] [address] RBC COUNT 4.38 X10E12/L Normal 3.80-5.20 [facility] Comment on above: Performed By: #### C BCA, BMP, 5643-2, 4024-6, 3298-7, 28281-5 #### [facility] ([id number]) [address], [address] [place] [address] RBC morphology finding Nom (Bld) NORMAL Normal [facility] Comment on above: Performed By: #### C BCA, BMP, 5643-2, 4024-6, 3298-7, 26078-0 #### [facility] ([id number]) [address], [address] [place] [address] SEG NEUTROPHIL 40.0 % Normal [facility] Comment on above: Performed By: #### C BCA, BMP, 5643-2, 4024-6, 3298-7, 53884-6 #### [facility] ([id number]) [address], [address] [place] [address] WBC (Bld) [#/Vol] 9.3 10*3/uL Normal 4.0-11.0 [facility] Comment on above: Performed By: #### C BCA, BMP, 5643-2, 4024-6, 3298-7, 10388-7 #### [facility] ([id number]) [address] [place] [address] COMPREHENSIVE METABOLIC PANE Haile 08-15-2024 Albumin [Mass/Vol] 3.7 g/dL Normal 3.2-5.3 [facility] Comment on above: Performed By: #### C BCA, BMP, 5643-2, 4024-6, 3298-7, 11442-7 #### [facility] ([id number]) [address] [place] [address] ALP [Catalytic activity/Vol] 57 U/L Normal 39-130 [facility] Comment on above: Performed By: #### C BCA, BMP, 5643-2, 4024-6, 3298-7, 05994-6 #### [facility] ([id number]) [address] [place] [address] ALT [Catalytic activity/Vol] 17 U/L Normal 0-31 [facility] Comment on above: Performed By: #### C BCA, BMP, 5643-2, 4024-6, 3298-7, 34856-4 #### [facility] ([id number]) [address] [place] [address] Anion gap [Moles/Vol] 11 mmol/L Normal 5-15 [facility] Comment on above: Performed By: #### C BCA, BMP, 5643-2, 4024-6, 3298-7, 68878-3 #### [facility] ([id number]) [address] [place] [address] AST [Catalytic activity/Vol] 21 U/L Normal 0-41 [facility] Comment on above: Performed By: #### C BCA, BMP, 5643-2, 4024-6, 3298-7, 71984-9 #### [facility] ([id number]) [address] [place] [address] Bilirubin [Mass/Vol] 0.3 mg/dL Normal 0.3-1.2 [facility] Comment on above: Performed By: #### C BCA, BMP, 5643-2, 4024-6, 3298-7, 66789-3 #### [facility] ([id number]) [address] [place] [address] Calcium [Mass/Vol] 8.7 mg/dL Normal 8.5-10.5 [facility] Comment on above: Performed By: #### C BCA, BMP, 5643-2, 4024-6, 3298-7, 20118-1 #### [facility] ([id number]) [address] [place] [address] Chloride [Moles/Vol] 104 mmol/L Normal 98-109 [facility] Comment on above: Performed By: #### C BCA, BMP, 5643-2, 4024-6, 3298-7, 26895-8 #### [facility] ([id number]) [address], [address] [place] [address] CO2 [Moles/Vol] 24 mmol/L Normal 22-32 [facility] Comment on above: Performed By: #### C BCA, BMP, 5643-2, 4024-6, 3298-7, 57590-2 #### [facility] ([id number]) [address] [address] [place] [address] Creatinine [Mass/Vol] 0.70 mg/dL Normal 0.40-1.00 [facility] Comment on above: Result Comment: METH OD TRACEABLE TO IDMS STANDARD Performed By: #### C BCA, BMP, 5643-2, 4024-6, 3298-7, 84434-5 #### [facility] ([id number]) [address] [address] eGFR (CKD-EPI) NON-RACE DEPENDENT >90 Normal >59 [facility] Comment on above: Result Comment: Reported eGFR is based on the CKD-EPI 2020 equation that does not use a race coefficient. Performed By: #### C BCA, BMP, 5643-2, 4024-6, 3298-7, 31923-8 #### [facility] ([id number]) [address] [address] Glucose [Mass/Vol] 94 mg/dL Normal 65-99 [facility] Comment on above: Performed By: #### C BCA, BMP, 5643-2, 4024-6, 3298-7, 47784-8 #### [facility] ([id number]) [address] [address] Potassium [Moles/Vol] 4.5 mmol/L Normal 3.5-5.0 [facility] Comment on above: Performed By: #### C BCA, BMP, 5643-2, 4024-6, 3298-7, 92024-1 #### [facility] ([id number]) [address] [address] Protein [Mass/Vol] 6.3 g/dL Normal 6.0-8.0 [facility] Comment on above: Performed By: #### C BCA, BMP, 5643-2, 4024-6, 3298-7, 58802-3 #### [facility] ([id number]) [address], [facility] [address] [place] [address] Sodium [Moles/Vol] 139 mmol/L Normal 134-146 [facility] Comment on above: Performed By: #### C BCA, BMP, 5643-2, 4024-6, 3298-7, 26434-8 #### [facility] ([id number]) [address], [facility] [address] [place] [address] Urea nitrogen [Mass/Vol] 12 mg/dL Normal 5-23 [facility] Comment on above: Performed By: #### C BCA, BMP, 5643-2, 4024-6, 3298-7, 95149-0 #### [facility] ([id number]) [address], [facility] [address] [place] [address] CBC AND AUTO DIFFon 08-15-19 25 ABSOLUTE BASOPHIL 0.1 X10E9/L Normal 0.0-0.2 [facility] Comment on above: Performed By: #### C BCA, BMP, 5643-2, 4024-6, 3298-7, 91548-1 #### [facility] ([id number]) [address], [facility] [address] [place] [address] Basophils/100 WBC (Bld) 0.9 % Normal [facility] Comment on above: Performed By: #### C BCA, BMP, 5643-2, 4024-6, 3298-7, 98615-1 #### [facility] ([id number]) [address] [address] [place] [address] Erythrocyte distribution width (RBC) [Ratio] 13.2 % Normal 11.5-15.0 [facility] Comment on above: Performed By: #### C BCA, BMP, 5643-2, 4024-6, 3298-7, 48072-0 #### [facility] ([id number]) [address] [place] [address] Hematocrit (Bld) [Volume fraction] 38.7 % Normal 35-47 [facility] Comment on above: Performed By: #### C BCA, BMP, 5643-2, 4024-6, 3298-7, 28373-8 #### [facility] ([id number]) [address] [place] [address] Hemoglobin (Bld) [Mass/Vol] 12.8 g/dL Normal 11.7-15.5 [facility] Comment on above: Performed By: #### C BCA, BMP, 5643-2, 4024-6, 3298-7, 39075-4 #### [facility] ([id number]) [address] [address] [place] [address] Lymphocytes (Bld) [#/Vol] 4.3 10*3/uL High 1.0-3.5 [facility] Comment on above: Performed By: #### C BCA, BMP, 5643-2, 4024-6, 3298-7, 97463-2 #### [facility] ([id number]) [address] [address] Lymphocytes/100 WBC (Bld) 42.5 % Normal [facility] Comment on above: Performed By: #### C BCA, BMP, 5643-2, 4024-6, 3298-7, 68227-0 #### [facility] ([id number]) [address] [address] [place] [address] MCH (RBC) [Entitic mass] 29.6 pg Normal 27-34 [facility] Comment on above: Performed By: #### C BCA, BMP, 5643-2, 4024-6, 3298-7, 87235-4 #### [facility] ([id number]) [address] [place] [address] MCHC (RBC) [Mass/Vol] 33.0 g/dL Normal 32-36 [facility] Comment on above: Performed By: #### C OSWALDO, BMP, 5643-2, 4024-6, 3298-7, 88631-7 #### [facility] ([id number]) [address] [place] [address] MCV (RBC) [Entitic vol] 90 fL Normal 80-100 P [facility] Comment on above: Performed By: #### C OSWALDO, BMP, 5643-2, 4024-6, 3298-7, 73319-4 #### [facility] ([id number]) [address] [place] [address] Metamyelocytes/100 WBC (Bld) 0.9 % Normal [facility] Comment on above: Performed By: #### C OSWALDO, BMP, 5643-2, 4024-6, 3298-7, 35125-9 #### [facility] ([id number]) [address] [place] [address] Monocytes (Bld) [#/Vol] 0.5 10*3/uL Normal 0-0.9 [facility] Comment on above: Performed By: #### C OSWALDO, BMP, 5643-2, 4024-6, 3298-7, 16500-5 #### [facility] ([id number]) [address] [place] [address] Monocytes/100 WBC (Bld) 4.7 % Normal P [facility] Comment on above: Performed By: #### C BCA, BMP, 5643-2, 4024-6, 3298-7, 84106-5 #### [facility] ([id number]) [address] [place] [address] MYELOCYTE 2.8 % Normal [facility] Comment on above: Performed By: #### C BCA, BMP, 5643-2, 4024-6, 3298-7, 64682-3 #### [facility] ([id number]) [address] [place] [address] Neutrophils (Bld) [#/Vol] 4.8 10*3/uL Normal 1.5-6.6 [facility] Comment on above: Performed By: #### C BCA, BMP, 5643-2, 4024-6, 3298-7, 31932-8 #### [facility] ([id number]) [address] [place] [address] Platelet mean volume (Bld) [Entitic vol] 7.6 fL Normal 7-12 [facility] Comment on above: Performed By: #### C BCA, BMP, 5643-2, 4024-6, 3298-7, 70083-4 #### [facility] ([id number]) [address] [place] [address] Platelets (Bld) [#/Vol] 288 10*3/uL Normal 150-450 [facility] Comment on above: Performed By: #### C BCA, BMP, 5643-2, 4024-6, 3298-7, 63973-1 #### [facility] ([id number]) [address] [place] [address] RBC COUNT 4.31 X10E12/L Normal 3.80-5.20 [facility] Comment on above: Performed By: #### C BCA, BMP, 5643-2, 4024-6, 3298-7, 95448-0 #### [facility] ([id number]) [address] [place] [address] RBC morphology finding Nom (Bld) NORMAL Normal [facility] Comment on above: Performed By: #### C BCA, BMP, 5643-2, 4024-6, 3298-7, 83097-6 #### [facility] ([id number]) [address] [place] [address] SEG NEUTROPHIL 48.2 % Normal [facility] Comment on above: Performed By: #### C BCA, BMP, 5643-2, 4024-6, 3298-7, 10811-6 #### [facility] ([id number]) [address] [place] [address] WBC (Bld) [#/Vol] 10.0 10*3/uL Normal 4.0-11.0 [facility] Comment on above: Performed By: #### C BCA, BMP, 5643-2, 4024-6, 3298-7, 14159-6 #### [facility] ([id number]) [address] [place] [address] COMPREHENSIVE METABOLIC PANE Haile 08-14-2024 Albumin [Mass/Vol] 3.6 g/dL Normal 3.2-5.3 [facility] Comment on above: Performed By: #### C BCA, BMP, 5643-2, 4024-6, 3298-7, 78370-5 #### [facility] ([id number]) [address] [place] [address] ALP [Catalytic activity/Vol] 56 U/L Normal 39-130 [facility] Comment on above: Performed By: #### C BCA, BMP, 5643-2, 4024-6, 3298-7, 46824-6 #### [facility] ([id number]) [address] [place] [address] ALT [Catalytic activity/Vol] 13 U/L Normal 0-31 [facility] Comment on above: Performed By: #### C BCA, BMP, 5643-2, 4024-6, 3298-7, 88446-0 #### [facility] ([id number]) [address] [place] [address] Anion gap [Moles/Vol] 4 mmol/L Low 5-15 [facility] Comment on above: Performed By: #### C BCA, BMP, 5643-2, 4024-6, 3298-7, 38562-5 #### [facility] ([id number]) [address] [place] [address] AST [Catalytic activity/Vol] 12 U/L Normal 0-41 [facility] Comment on above: Performed By: #### C BCA, BMP, 5643-2, 4024-6, 3298-7, 54438-9 #### [facility] ([id number]) [address] [place] [address] Bilirubin [Mass/Vol] 0.3 mg/dL Normal 0.3-1.2 [facility] Comment on above: Performed By: #### C BCA, BMP, 5643-2, 4024-6, 3298-7, 53859-8 #### [facility] ([id number]) [address] [place] [address] Calcium [Mass/Vol] 8.1 mg/dL Low 8.5-10.5 [facility] Comment on above: Performed By: #### C BCA, BMP, 5643-2, 4024-6, 3298-7, 73239-5 #### [facility] ([id number]) [address] [place] [address] Chloride [Moles/Vol] 104 mmol/L Normal 98-109 [facility] Comment on above: Performed By: #### C BCA, BMP, 5643-2, 4024-6, 3298-7, 49662-7 #### [facility] ([id number]) [address] [place] [address] CO2 [Moles/Vol] 31 mmol/L Normal 22-32 [facility] Comment on above: Performed By: #### C BCA, BMP, 5643-2, 4024-6, 3298-7, 32464-9 #### [facility] ([id number]) [address] [place] [address] Creatinine [Mass/Vol] 0.63 mg/dL Normal 0.40-1.00 [facility] Comment on above: Result Comment: METH OD TRACEABLE TO IDMS STANDARD Performed By: #### C BCA, BMP, 5643-2, 4024-6, 3298-7, 41474-4 #### [facility] ([id number]) [address], [address] [address] eGFR (CKD-EPI) NON-RACE DEPENDENT >90 Normal >59 [facility] Comment on above: Result Comment: Reported eGFR is based on the CKD-EPI 2020 equation that does not use a race coefficient. Performed By: #### C BCA, BMP, 5643-2, 4024-6, 3298-7, 75245-0 #### [facility] ([id number]) [address] [place] [address] Glucose [Mass/Vol] 95 mg/dL Normal 65-99 [facility] Comment on above: Performed By: #### C BCA, BMP, 5643-2, 4024-6, 3298-7, 03942-9 #### [facility] ([id number]) [address], [address] [address] Potassium [Moles/Vol] 3.9 mmol/L Normal 3.5-5.0 [facility] Comment on above: Performed By: #### C BCA, BMP, 5643-2, 4024-6, 3298-7, 21940-7 #### [facility] ([id number]) [address], [facility] [address] [place] [address] Protein [Mass/Vol] 5.9 g/dL Low 6.0-8.0 [facility] Comment on above: Performed By: #### C BCA, BMP, 5643-2, 4024-6, 3298-7, 66729-6 #### [facility] ([id number]) [address], [facility] [address] [place] [address] Sodium [Moles/Vol] 139 mmol/L Normal 134-146 [facility] Comment on above: Performed By: #### C BCA, BMP, 5643-2, 4024-6, 3298-7, 22910-0 #### [facility] ([id number]) [address] [address] Urea nitrogen [Mass/Vol] 15 mg/dL Normal 5-23 [facility] Comment on above: Performed By: #### C BCA, BMP, 5643-2, 4024-6, 3298-7, 82673-2 #### [facility] ([id number]) [address] [address] CBC AND AUTO DIFFon 08-13-20 25 Eosinophils (Bld) [#/Vol] 0.2 10*3/uL Normal 0.0-0.4 [facility] Comment on above: Performed By: #### C BCA, BMP, 5643-2, 4024-6, 3298-7, 54855-2 #### [facility] ([id number]) [address] [address] Eosinophils/100 WBC (Bld) 1.9 % Normal [facility] Comment on above: Performed By: #### C BCA, BMP, 5643-2, 4024-6, 3298-7, 52082-2 #### [facility] ([id number]) [address] [address] Erythrocyte distribution width (RBC) [Ratio] 13.2 % Normal 11.5-15.0 [facility] Comment on above: Performed By: #### C BCA, BMP, 5643-2, 4024-6, 3298-7, 32828-7 #### [facility] ([id number]) [address] [place] [address] Hematocrit (Bld) [Volume fraction] 38.1 % Normal 35-47 [facility] Comment on above: Performed By: #### C BCA, BMP, 5643-2, 4024-6, 3298-7, 93614-6 #### [facility] ([id number]) [address] [place] [address] Hemoglobin (Bld) [Mass/Vol] 12.9 g/dL Normal 11.7-15.5 [facility] Comment on above: Performed By: #### C BCA, BMP, 5643-2, 4024-6, 3298-7, 19720-9 #### [facility] ([id number]) [address], [address] [place] [address] Lymphocytes (Bld) [#/Vol] 3.2 10*3/uL Normal 1.0-3.5 [facility] Comment on above: Performed By: #### C BCA, BMP, 5643-2, 4024-6, 3298-7, 42109-8 #### [facility] ([id number]) [address], [facility] [address] [place] [address] Lymphocytes/100 WBC (Bld) 32.4 % Normal [facility] Comment on above: Performed By: #### C BCA, BMP, 5643-2, 4024-6, 3298-7, 71255-2 #### [facility] ([id number]) [address] [address] [place] [address] MCH (RBC) [Entitic mass] 30.3 pg Normal 27-34 [facility] Comment on above: Performed By: #### C BCA, BMP, 5643-2, 4024-6, 3298-7, 24210-1 #### [facility] ([id number]) [address] [place] [address] MCHC (RBC) [Mass/Vol] 34.0 g/dL Normal 32-36 [facility] Comment on above: Performed By: #### C BCA, BMP, 5643-2, 4024-6, 3298-7, 10156-1 #### [facility] ([id number]) [address] [place] [address] MCV (RBC) [Entitic vol] 89 fL Normal 80-100 P [facility] Comment on above: Performed By: #### C BCA, BMP, 5643-2, 4024-6, 3298-7, 19965-0 #### [facility] ([id number]) [address] [place] [address] Monocytes (Bld) [#/Vol] 0.1 10*3/uL Normal 0-0.9 [facility] Comment on above: Performed By: #### C BCA, BMP, 5643-2, 4024-6, 3298-7, 46737-3 #### [facility] ([id number]) [address] [place] [address] Monocytes/100 WBC (Bld) 0.9 % Normal P [facility] Comment on above: Performed By: #### C BCA, BMP, 5643-2, 4024-6, 3298-7, 49043-4 #### [facility] ([id number]) [address] [place] [address] Neutrophils (Bld) [#/Vol] 6.4 10*3/uL Normal 1.5-6.6 [facility] Comment on above: Performed By: #### C BCA, BMP, 5643-2, 4024-6, 3298-7, 70293-4 #### [facility] ([id number]) [address] [place] [address] Platelet mean volume (Bld) [Entitic vol] 7.7 fL Normal 7-12 [facility] Comment on above: Performed By: #### C BCA, BMP, 5643-2, 4024-6, 3298-7, 91361-4 #### [facility] ([id number]) [address], [facility] [address] [place] [address] Platelets (Bld) [#/Vol] 323 10*3/uL Normal 150-450 [facility] Comment on above: Performed By: #### C BCA, BMP, 5643-2, 4024-6, 3298-7, 02837-2 #### [facility] ([id number]) [address], [facility] [address] [place] [address] RBC COUNT 4.27 X10E12/L Normal 3.80-5.20 [facility] Comment on above: Performed By: #### C OSWALDO, BMP, 5643-2, 4024-6, 3298-7, 97531-2 #### [facility] ([id number]) [address], [facility] [address] [place] [address] RBC morphology finding Nom (Bld) NORMAL Normal [facility] Comment on above: Performed By: #### Franco CHACON, BMP, 5643-2, 4024-6, 3298-7, 23804-5 #### [facility] ([id number]) [address], [address] [address] SEG NEUTROPHIL 64.8 % Normal [facility] Comment on above: Performed By: #### C BCA, BMP, 5643-2, 4024-6, 3298-7, 99006-8 #### [facility] ([id number]) [address] [place] [address] WBC (Bld) [#/Vol] 9.8 10*3/uL Normal 4.0-11.0 [facility] Comment on above: Performed By: #### C BCA, BMP, 5643-2, 4024-6, 3298-7, 30765-9 #### [facility] ([id number]) [address] [place] [address] COMPREHENSIVE METABOLIC PANE Haile 08-13-2024 Albumin [Mass/Vol] 3.9 g/dL Normal 3.2-5.3 [facility] Comment on above: Performed By: #### C BCA, BMP, 5643-2, 4024-6, 3298-7, 14207-9 #### [facility] ([id number]) [address] [place] [address] ALP [Catalytic activity/Vol] 60 U/L Normal 39-130 [facility] Comment on above: Performed By: #### C BCA, BMP, 5643-2, 4024-6, 3298-7, 05745-7 #### [facility] ([id number]) [address] [place] [address] ALT [Catalytic activity/Vol] 16 U/L Normal 0-31 [facility] Comment on above: Performed By: #### C BCA, BMP, 5643-2, 4024-6, 3298-7, 84071-7 #### [facility] ([id number]) [address] [place] [address] Anion gap [Moles/Vol] 7 mmol/L Normal 5-15 [facility] Comment on above: Performed By: #### C BCA, BMP, 5643-2, 4024-6, 3298-7, 82910-4 #### [facility] ([id number]) [address] [place] [address] AST [Catalytic activity/Vol] 13 U/L Normal 0-41 [facility] Comment on above: Performed By: #### C BCA, BMP, 5643-2, 4024-6, 3298-7, 61164-2 #### [facility] ([id number]) [address] [place] [address] Bilirubin [Mass/Vol] 0.2 mg/dL Low 0.3-1.2 [facility] Comment on above: Performed By: #### C BCA, BMP, 5643-2, 4024-6, 3298-7, 22102-8 #### [facility] ([id number]) [address] [place] [address] Calcium [Mass/Vol] 8.6 mg/dL Normal 8.5-10.5 [facility] Comment on above: Performed By: #### C BCA, BMP, 5643-2, 4024-6, 3298-7, 29688-6 #### [facility] ([id number]) [address] [place] [address] Chloride [Moles/Vol] 103 mmol/L Normal 98-109 [facility] Comment on above: Performed By: #### C BCA, BMP, 5643-2, 4024-6, 3298-7, 64513-9 #### [facility] ([id number]) [address] [place] [address] CO2 [Moles/Vol] 28 mmol/L Normal 22-32 [facility] Comment on above: Performed By: #### C BCA, BMP, 5643-2, 4024-6, 3298-7, 95025-4 #### [facility] ([id number]) [address] [place] [address] Creatinine [Mass/Vol] 0.62 mg/dL Normal 0.40-1.00 [facility] Comment on above: Result Comment: METH OD TRACEABLE TO IDMS STANDARD Performed By: #### C BCA, BMP, 5643-2, 4024-6, 3298-7, 52701-9 #### [facility] ([id number]) [address] [place] [address] eGFR (CKD-EPI) NON-RACE DEPENDENT >90 Normal >59 [facility] Comment on above: Result Comment: Reported eGFR is based on the CKD-EPI 2020 equation that does not use a race coefficient. Performed By: #### C BCA, BMP, 5643-2, 4024-6, 3298-7, 42992-9 #### [facility] ([id number]) [address] [place] [address] Glucose [Mass/Vol] 105 mg/dL High 65-99 [facility] Comment on above: Performed By: #### C BCA, BMP, 5643-2, 4024-6, 3298-7, 23670-6 #### [facility] ([id number]) [address] [address] [place] [address] Potassium [Moles/Vol] 4.0 mmol/L Normal 3.5-5.0 [facility] Comment on above: Performed By: #### C BCA, BMP, 5643-2, 4024-6, 3298-7, 07894-5 #### [facility] ([id number]) [address] [address] [place] [address] Protein [Mass/Vol] 6.4 g/dL Normal 6.0-8.0 [facility] Comment on above: Performed By: #### C BCA, BMP, 5643-2, 4024-6, 3298-7, 15530-0 #### [facility] ([id number]) [address] [address] [place] [address] Sodium [Moles/Vol] 138 mmol/L Normal 134-146 [facility] Comment on above: Performed By: #### C BCA, BMP, 5643-2, 4024-6, 3298-7, 70402-3 #### [facility] ([id number]) [address] [place] [address] Urea nitrogen [Mass/Vol] 19 mg/dL Normal 5-23 [facility] Comment on above: Performed By: #### C OSWALDO, BMP, 5643-2, 4024-6, 3298-7, 91739-7 #### [facility] ([id number]) [address] [place] [address] MAGNESIUMon 08-13-2024 Magnesium [Mass/Vol] 2.0 mg/dL Normal 1.8-2.6 [facility] Comment on above: Performed By: #### C OSWALDO, BMP, 5643-2, 4024-6, 3298-7, 77072-3 #### [facility] ([id number]) [address] [place] [address] PHOSPHORUSon 08-13-2024 Phosphate [Mass/Vol] 3.8 mg/dL Normal 2.4-4.9 [facility] Comment on above: Performed By: #### C OSWALDO, BMP, 5643-2, 4024-6, 3298-7, 09590-6 #### [facility] ([id number]) [address] [place] [address] PROTIME AND INRon 08-13-2024 INR Coag (PPP) [Relative time] 0.8 {INR} Low 0.9-1.2 [facility] Comment on above: Performed By: #### C OSWALDO, BMP, 5643-2, 4024-6, 3298-7, 14066-7 #### [facility] ([id number]) [address] [place] [address] PT Coag (PPP) [Time] 9.6 s Low 9.8-13.2 [facility] Comment on above: Performed By: #### C OSWALDO, BMP, 5643-2, 4024-6, 3298-7, 33716-4 #### [facility] ([id number]) [address] [place] [address] THYROID PROFILEon 08-13-2024 Free T4 [Mass/Vol] 0.86 ng/dL Normal 0.61-1.60 [facility] Comment on above: Performed By: #### C BCA, BMP, 5643-2, 4024-6, 3298-7, 55351-7 #### [facility] ([id number]) [address], [address] [place] [address] TSH 0.92 uIU/mL Normal 0.49-4.67 [facility] Comment on above: Performed By: #### C BCA, BMP, 5643-2, 4024-6, 3298-7, 38579-4 #### [facility] ([id number]) [address], [address] [place] [address] CBC AND AUTO DIFFon 08-08-19 ABSOLUTE BASOPHIL 0.1 X10E9/L Normal 0.0-0.2 [facility] Comment on above: Performed By: #### C BCA, BMP, 5643-2, 4024-6, 3298-7, 60096-2 #### [facility] ([id number]) [address], [address] [place] [address] ABSOLUTE NEUTROPHIL 3.9 X10E9/L Normal 1.5-6.6 [facility] Comment on above: Performed By: #### C BCA, BMP, 5643-2, 4024-6, 3298-7, 74077-9 #### [facility] ([id number]) [address], [address] [place] [address] Basophils/100 WBC (Bld) 1.5 % Normal [facility] Comment on above: Performed By: #### C BCA, BMP, 5643-2, 4024-6, 3298-7, 64231-8 #### [facility] ([id number]) [address], [address] [address] Eosinophils (Bld) [#/Vol] 0.1 10*3/uL Normal 0.0-0.4 [facility] Comment on above: Performed By: #### C OSWALDO, BMP, 5643-2, 4024-6, 3298-7, 90438-3 #### [facility] ([id number]) [address] [address] Eosinophils/100 WBC (Bld) 1.0 % Normal [facility] Comment on above: Performed By: #### C OSWALDO, MASSIMO, 5643-2, 4024-6, 3298-7, 93284-8 #### [facility] ([id number]) [address] [address] Erythrocyte distribution width (RBC) [Ratio] 12.9 % Normal 11.5-15.0 [facility] Comment on above: Performed By: #### C OSWALDO, BMP, 5643-2, 4024-6, 3298-7, 47052-2 #### [facility] ([id number]) [address] [address] Hematocrit (Bld) [Volume fraction] 42.4 % Normal 35-47 [facility] Comment on above: Performed By: #### C OSWALDO, BMP, 5643-2, 4024-6, 3298-7, 46351-4 #### [facility] ([id number]) [address] [address] Hemoglobin (Bld) [Mass/Vol] 14.5 g/dL Normal 11.7-15.5 [facility] Comment on above: Performed By: #### C OSWALDO, BMP, 5643-2, 4024-6, 3298-7, 71030-1 #### [facility] ([id number]) [address] [address] Lymphocytes (Bld) [#/Vol] 3.5 10*3/uL Normal 1.0-3.5 [facility] Comment on above: Performed By: #### C BCA, BMP, 5643-2, 4024-6, 3298-7, 53600-2 #### [facility] ([id number]) [address], [address] [place] [address] Lymphocytes/100 WBC (Bld) 42.3 % Normal [facility] Comment on above: Performed By: #### C BCA, BMP, 5643-2, 4024-6, 3298-7, 67172-8 #### [facility] ([id number]) [address], [address] [place] [address] MCH (RBC) [Entitic mass] 30.2 pg Normal 27-34 [facility] Comment on above: Performed By: #### C BCA, BMP, 5643-2, 4024-6, 3298-7, 27087-4 #### [facility] ([id number]) [address], [address] [place] [address] MCHC (RBC) [Mass/Vol] 34.2 g/dL Normal 32-36 [facility] Comment on above: Performed By: #### C BCA, BMP, 5643-2, 4024-6, 3298-7, 45569-3 #### [facility] ([id number]) [address], [address] [place] [address] MCV (RBC) [Entitic vol] 88 fL Normal 80-100 P [facility] Comment on above: Performed By: #### C BCA, BMP, 5643-2, 4024-6, 3298-7, 00455-5 #### [facility] ([id number]) [address], [address] [place] [address] Monocytes (Bld) [#/Vol] 0.7 10*3/uL Normal 0-0.9 [facility] Comment on above: Performed By: #### C BCA, BMP, 5643-2, 4024-6, 3298-7, 74792-1 #### [facility] ([id number]) [address], [facility] [address] [place] [address] Monocytes/100 WBC (Bld) 8.5 % Normal [facility] Comment on above: Performed By: #### C BCA, BMP, 5643-2, 4024-6, 3298-7, 32119-9 #### [facility] [facility] ([id number]) [address], [facility] [address] [place] [address] Neutrophils/100 WBC (Bld) 46.7 % Normal [facility] Comment on above: Performed By: #### C BCA, BMP, 5643-2, 4024-6, 3298-7, 75660-3 #### [facility] ([id number]) [address], [facility] [address] [place] [address] Platelet mean volume (Bld) [Entitic vol] 7.8 fL Normal 7-12 [facility] Comment on above: Performed By: #### C BCA, BMP, 5643-2, 4024-6, 3298-7, 76292-8 #### [facility] ([id number]) [address] [address] Platelets (Bld) [#/Vol] 342 10*3/uL Normal 150-450 [facility] Comment on above: Performed By: #### C BCA, BMP, 5643-2, 4024-6, 3298-7, 84828-3 #### [facility] ([id number]) [address] [address] [place] [address] RBC COUNT 4.80 X10E12/L Normal 3.80-5.20 [facility] Comment on above: Performed By: #### C BCA, BMP, 5643-2, 4024-6, 3298-7, 18703-6 #### [facility] ([id number]) [address], [address] [place] [address] WBC (Bld) [#/Vol] 8.4 10*3/uL Normal 4.0-11.0 [facility] Comment on above: Performed By: #### C BCA, BMP, 5643-2, 4024-6, 3298-7, 68181-7 #### [facility] ([id number]) [address], [address] [place] [address] COMPREHENSIVE METABOLIC PANE Haile 08-07-2024 Albumin [Mass/Vol] 4.5 g/dL Normal 3.2-5.3 [facility] Comment on above: Performed By: #### C BCA, BMP, 5643-2, 4024-6, 3298-7, 98551-4 #### [facility] ([id number]) [address] [place] [address] ALP [Catalytic activity/Vol] 64 U/L Normal 39-130 [facility] Comment on above: Performed By: #### C BCA, BMP, 5643-2, 4024-6, 3298-7, 81106-5 #### [facility] ([id number]) [address], [address] [place] [address] ALT [Catalytic activity/Vol] 16 U/L Normal 0-31 [facility] Comment on above: Performed By: #### C BCA, BMP, 5643-2, 4024-6, 3298-7, 79881-6 #### [facility] ([id number]) [address], [address] [place] [address] Anion gap [Moles/Vol] 9 mmol/L Normal 5-15 [facility] Comment on above: Performed By: #### C BCA, BMP, 5643-2, 4024-6, 3298-7, 42589-3 #### [facility] ([id number]) [address], [address] [place] [address] AST [Catalytic activity/Vol] 17 U/L Normal 0-41 [facility] Comment on above: Performed By: #### C BCA, BMP, 5643-2, 4024-6, 3298-7, 53022-5 #### [facility] ([id number]) [address], [address] [place] [address] Bilirubin [Mass/Vol] 0.3 mg/dL Normal 0.3-1.2 [facility] Comment on above: Performed By: #### C BCA, BMP, 5643-2, 4024-6, 3298-7, 27812-1 #### [facility] ([id number]) [address], [address] [place] [address] Calcium [Mass/Vol] 9.1 mg/dL Normal 8.5-10.5 [facility] Comment on above: Performed By: #### C BCA, BMP, 5643-2, 4024-6, 3298-7, 10231-6 #### [facility] ([id number]) [address], [address] [place] [address] Chloride [Moles/Vol] 102 mmol/L Normal 98-109 [facility] Comment on above: Performed By: #### C BCA, BMP, 5643-2, 4024-6, 3298-7, 10299-8 #### [facility] ([id number]) [address], [address] [place] [address] CO2 [Moles/Vol] 26 mmol/L Normal 22-32 [facility] Comment on above: Performed By: #### C BCA, BMP, 5643-2, 4024-6, 3298-7, 50595-2 #### [facility] ([id number]) [address], [address] [place] [address] Creatinine [Mass/Vol] 0.74 mg/dL Normal 0.40-1.00 [facility] Comment on above: Result Comment: METH OD TRACEABLE TO IDMS STANDARD Performed By: #### C BCA, BMP, 5643-2, 4024-6, 3298-7, 12122-5 #### [facility] ([id number]) [address], [address] [place] [address] eGFR (CKD-EPI) NON-RACE DEPENDENT >90 Normal >59 [facility] Comment on above: Result Comment: Reported eGFR is based on the CKD-EPI 2020 equation that does not use a race coefficient. Performed By: #### C BCA, BMP, 5643-2, 4024-6, 3298-7, 70144-1 #### [facility] ([id number]) [address], [address] [place] [address] Glucose [Mass/Vol] 88 mg/dL Normal 65-99 [facility] Comment on above: Performed By: #### C BCA, BMP, 5643-2, 4024-6, 3298-7, 65451-3 #### [facility] ([id number]) [address], [address] [place] [address] Potassium [Moles/Vol] 4.2 mmol/L Normal 3.5-5.0 [facility] Comment on above: Performed By: #### C BCA, BMP, 5643-2, 4024-6, 3298-7, 00688-4 #### [facility] ([id number]) [address], [address] [place] [address] Protein [Mass/Vol] 7.3 g/dL Normal 6.0-8.0 [facility] Comment on above: Performed By: #### C BCA, BMP, 5643-2, 4024-6, 3298-7, 23497-0 #### [facility] ([id number]) [address], [address] [place] [address] Sodium [Moles/Vol] 137 mmol/L Normal 134-146 [facility] Comment on above: Performed By: #### C BCA, BMP, 5643-2, 4024-6, 3298-7, 76421-2 #### [facility] ([id number]) [address] [place] [address] Urea nitrogen [Mass/Vol] 9 mg/dL Normal 5-23 [facility] Comment on above: Performed By: #### C BCA, BMP, 5643-2, 4024-6, 3298-7, 86986-8 #### [facility] ([id number]) [address] [place] [address] CT BRAIN WO CONTon CT BRAIN WO CONT CT BRAIN WO CONT STUDY: CT BRAIN WO CONT INDICATION: Headache, new or worsening, positional (Age 18-49y). TECHNIQUE: * CT head was performed without intravenous contrast using the standard protocol. Automated exposure control was utilized. * All CT scans at this facility use dose modulation, iterative reconstruction, and/or weight based dosing when appropriate to reduce radiation dose to as low as reasonably achievable. COMPARISON: CT brain 07/16/2024 FINDINGS: No evidence of acute intracranial hemorrhage, territorial infarct, mass effect, midline shift, or extra-axial fluid collection. Ventricles, sulci and cistern are unremarkable. Brain volume is age appropriate. White-white differentiation is preserved. Orbits and globes appear unremarkable. Soft tissues are unremarkable. Paranasal sinuses are broadly clear. Mastoid air cells are broadly clear. No evidence of aggressive osseous lesion. IMPRESSION: * No acute intracranial abnormality, by CT. Approved by Resident Sterling Sadler MD on 08/07/2024 11:13 PM I, Cohlo Hernandez MD have personally reviewed the image(s) and agree with and/or edited the report Finalized by Cholo Hernandez MD on 08/07/2024 11:[address] [facility] URN MACROSCOPIC NURon 2024 BILIRUBIN NADYA Negative Normal NEG [facility] Comment on above: Performed By: #### C BCA, BMP, 5643-2, 4024-6, 3298-7, 17800-2 #### [facility] ([id number]) [address], [address] [place] [address] BLOOD/HGB NADYA Negative Normal NEG [facility] Comment on above: Performed By: #### C BCA, BMP, 5643-2, 4024-6, 3298-7, 05443-3 #### [facility] ([id number]) [address] [place] [address] GLUCOSE NADYA Negative Normal NEG [facility] Comment on above: Performed By: #### C BCA, BMP, 5643-2, 4024-6, 3298-7, 88362-6 #### [facility] ([id number]) [address], [address] [place] [address] KETONES NADYA Negative Normal NEG [facility] Comment on above: Performed By: #### C BCA, BMP, 5643-2, 4024-6, 3298-7, 25236-7 #### [facility] ([id number]) [address], [address] [place] [address] LEUKOCYTE ESTERASE NADYA Negative Normal NEG [facility] Comment on above: Performed By: #### C BCA, BMP, 5643-2, 4024-6, 3298-7, 18133-7 #### [facility] ([id number]) [address], [address] [place] [address] NITRITE NADYA Negative Normal NEG [facility] Comment on above: Performed By: #### C BCA, BMP, 5643-2, 4024-6, 3298-7, 10783-5 #### [facility] ([id number]) [address], [address] [place] [address] PH NADYA 7.0 Normal 5.0-8.5 [facility] Comment on above: Performed By: #### C BCA, BMP, 5643-2, 4024-6, 3298-7, 19256-5 #### [facility] ([id number]) [address], [address] [place] [address] PROTEIN NADYA Negative Normal NEG [facility] Comment on above: Performed By: #### C BCA, BMP, 5643-2, 4024-6, 3298-7, 53717-2 #### [facility] ([id number]) [address], [address] [place] [address] SPECIFIC GRAVITY NADYA 1.020 Normal 1.003-1.035 [facility] Comment on above: Performed By: #### C BCA, BMP, 5643-2, 4024-6, 3298-7, 52634-1 #### [facility] ([id number]) [address], [address] [place] [address] UROBILINOGEN NADYA 0.2 eu/dL Normal <1.1 [facility] Comment on above: Performed By: #### C BCA, BMP, 5643-2, 4024-6, 3298-7, 90319-3 #### [facility] ([id number]) [address], [address] [address] Urine collection deviceon ER EXTRA URINES ER EXTRA URINE ORDER IN PROCESS Normal [facility] BASIC METABOLIC PANLon 08-04 Anion gap [Moles/Vol] 8 mmol/L Normal 5-15 [facility] Comment on above: Performed By: #### C BCA, BMP, 5643-2, 4024-6, 3298-7, 29028-4 #### [facility] ([id number]) [address], [facility] [address] [place] [address] Calcium [Mass/Vol] 9.5 mg/dL Normal 8.5-10.5 [facility] Comment on above: Performed By: #### C BCA, BMP, 5643-2, 4024-6, 3298-7, 70919-4 #### [facility] ([id number]) [address] [place] [address] Chloride [Moles/Vol] 104 mmol/L Normal 98-109 [facility] Comment on above: Performed By: #### C BCA, BMP, 5643-2, 4024-6, 3298-7, 24422-3 #### [facility] ([id number]) [address], [address] [place] [address] CO2 [Moles/Vol] 27 mmol/L Normal 22-32 [facility] Comment on above: Performed By: #### C BCA, BMP, 5643-2, 4024-6, 3298-7, 72488-2 #### [facility] ([id number]) [address] [address] Creatinine [Mass/Vol] 0.79 mg/dL Normal 0.40-1.00 [facility] Comment on above: Result Comment: METH OD TRACEABLE TO IDMS STANDARD Performed By: #### C BCA, BMP, 5643-2, 4024-6, 3298-7, 02550-3 #### [facility] ([id number]) [address] [address] eGFR (CKD-EPI) NON-RACE DEPENDENT >90 Normal >59 [facility] Comment on above: Result Comment: Reported eGFR is based on the CKD-EPI 2020 equation that does not use a race coefficient. Performed By: #### C BCA, BMP, 5643-2, 4024-6, 3298-7, 57445-1 #### [facility] ([id number]) [address] [address] [place] [address] Glucose [Mass/Vol] 104 mg/dL High 65-99 [facility] Comment on above: Performed By: #### C BCA, BMP, 5643-2, 4024-6, 3298-7, 57123-3 #### [facility] ([id number]) [address] [address] [place] [address] Potassium [Moles/Vol] 4.5 mmol/L Normal 3.5-5.0 [facility] Comment on above: Performed By: #### C OSWALDO, BMP, 5643-2, 4024-6, 3298-7, 79674-8 #### [facility] ([id number]) [address] [place] [address] Sodium [Moles/Vol] 139 mmol/L Normal 134-146 [facility] Comment on above: Performed By: #### C OSWALDO, BMP, 5643-2, 4024-6, 3298-7, 97534-7 #### [facility] ([id number]) [address] [place] [address] Urea nitrogen [Mass/Vol] 10 mg/dL Normal 5-23 [facility] Comment on above: Performed By: #### C OSWALDO, BMP, 5643-2, 4024-6, 3298-7, 16939-7 #### [facility] ([id number]) [address] [place] [address] CBC AND AUTO DIFFon 08-05-19 25 ABSOLUTE BASOPHIL 0.1 X10E9/L Normal 0.0-0.2 [facility] Comment on above: Performed By: #### C OSWALDO, BMP, 5643-2, 4024-6, 3298-7, 54741-8 #### [facility] ([id number]) [address] [place] [address] ABSOLUTE NEUTROPHIL 3.7 X10E9/L Normal 1.5-6.6 [facility] Comment on above: Performed By: #### C BCA, BMP, 5643-2, 4024-6, 3298-7, 50943-7 #### [facility] ([id number]) [address] [address] [place] [address] Basophils/100 WBC (Bld) 0.9 % Normal [facility] Comment on above: Performed By: #### C BCA, BMP, 5643-2, 4024-6, 3298-7, 05492-1 #### [facility] ([id number]) [address], [address] [place] [address] Eosinophils (Bld) [#/Vol] 0.2 10*3/uL Normal 0.0-0.4 [facility] Comment on above: Performed By: #### C BCA, BMP, 5643-2, 4024-6, 3298-7, 97900-7 #### [facility] ([id number]) [address], [address] [place] [address] Eosinophils/100 WBC (Bld) 2.1 % Normal [facility] Comment on above: Performed By: #### C BCA, BMP, 5643-2, 4024-6, 3298-7, 90200-6 #### [facility] ([id number]) [address], [address] [place] [address] Erythrocyte distribution width (RBC) [Ratio] 12.9 % Normal 11.5-15.0 [facility] Comment on above: Performed By: #### C BCA, BMP, 5643-2, 4024-6, 3298-7, 57992-7 #### [facility] ([id number]) [address] [place] [address] Hematocrit (Bld) [Volume fraction] 40.5 % Normal 35-47 [facility] Comment on above: Performed By: #### C BCA, BMP, 5643-2, 4024-6, 3298-7, 05970-5 #### [facility] ([id number]) [address], [address] [place] [address] Hemoglobin (Bld) [Mass/Vol] 13.8 g/dL Normal 11.7-15.5 [facility] Comment on above: Performed By: #### C BCA, BMP, 5643-2, 4024-6, 3298-7, 79987-2 #### [facility] ([id number]) [address], [address] [place] [address] Lymphocytes (Bld) [#/Vol] 3.1 10*3/uL Normal 1.0-3.5 [facility] Comment on above: Performed By: #### C BCA, BMP, 5643-2, 4024-6, 3298-7, 68063-1 #### [facility] ([id number]) [address] [place] [address] Lymphocytes/100 WBC (Bld) 40.8 % Normal [facility] Comment on above: Performed By: #### C BCA, BMP, 5643-2, 4024-6, 3298-7, 48750-4 #### [facility] ([id number]) [address], [address] [place] [address] MCH (RBC) [Entitic mass] 29.8 pg Normal 27-34 [facility] Comment on above: Performed By: #### C BCA, BMP, 5643-2, 4024-6, 3298-7, 65913-5 #### [facility] ([id number]) [address] [place] [address] MCHC (RBC) [Mass/Vol] 33.9 g/dL Normal 32-36 [facility] Comment on above: Performed By: #### C BCA, BMP, 5643-2, 4024-6, 3298-7, 03294-1 #### [facility] ([id number]) [address] [place] [address] MCV (RBC) [Entitic vol] 88 fL Normal 80-100 [facility] Comment on above: Performed By: #### C BCA, BMP, 5643-2, 4024-6, 3298-7, 24774-3 #### [facility] ([id number]) [address] [place] [address] Monocytes (Bld) [#/Vol] 0.6 10*3/uL Normal 0-0.9 [facility] Comment on above: Performed By: #### C BCA, BMP, 5643-2, 4024-6, 3298-7, 20766-8 #### [facility] ([id number]) [address], [facility] [address] [place] [address] Monocytes/100 WBC (Bld) 7.3 % Normal P [facility] Comment on above: Performed By: #### C BCA, BMP, 5643-2, 4024-6, 3298-7, 74622-7 #### [facility] ([id number]) [address] [address] Neutrophils/100 WBC (Bld) 48.9 % Normal [facility] Comment on above: Performed By: #### C BCA, BMP, 5643-2, 4024-6, 3298-7, 66777-2 #### [facility] ([id number]) [address] [address] Platelet mean volume (Bld) [Entitic vol] 7.8 fL Normal 7-12 [facility] Comment on above: Performed By: #### C BCA, BMP, 5643-2, 4024-6, 3298-7, 45409-3 #### [facility] ([id number]) [address] [address] Platelets (Bld) [#/Vol] 367 10*3/uL Normal 150-450 [facility] Comment on above: Performed By: #### C BCA, BMP, 5643-2, 4024-6, 3298-7, 49002-7 #### [facility] ([id number]) [address] [place] [address] RBC COUNT 4.61 X10E12/L Normal 3.80-5.20 [facility] Comment on above: Performed By: #### C BCA, BMP, 5643-2, 4024-6, 3298-7, 88134-8 #### [facility] ([id number]) [address] [place] [address] WBC (Bld) [#/Vol] 7.6 10*3/uL Normal 4.0-11.0 [facility] Comment on above: Performed By: #### C BCA, BMP, 5643-2, 4024-6, 3298-7, 67395-0 #### [facility] ([id number]) [address] [place] [address] HCG ( test) Ql (U)o n 08-04-2024 Beta HCG ( test) Ql (U) Negative Normal NEG [facility] Comment on above: Performed By: #### C OSWALDO, BMP, 5643-2, 4024-6, 3298-7, 91635-0 #### [facility] ([id number]) [address] [place] [address] URN MACROSCOPIC NURon 2024 BILIRUBIN NADYA Negative Normal NEG [facility] Comment on above: Performed By: #### Franco CHACON, BMP, 5643-2, 4024-6, 3298-7, 68299-6 #### [facility] ([id number]) [address] [place] [address] BLOOD/HGB NADYA Negative Normal NEG [facility] Comment on above: Performed By: #### Franco BCA, BMP, 5643-2, 4024-6, 3298-7, 49990-4 #### [facility] ([id number]) [address] [place] [address] GLUCOSE NADYA Negative Normal NEG [facility] Comment on above: Performed By: #### C BCA, BMP, 5643-2, 4024-6, 3298-7, 06961-9 #### [facility] ([id number]) [address] [place] [address] KETONES NADYA Negative Normal NEG [facility] Comment on above: Performed By: #### C BCA, BMP, 5643-2, 4024-6, 3298-7, 84032-3 #### [facility] ([id number]) [address] [place] [address] LEUKOCYTE ESTERASE NADYA Negative Normal NEG [facility] Comment on above: Performed By: #### C BCA, BMP, 5643-2, 4024-6, 3298-7, 03809-8 #### [facility] ([id number]) [address] [place] [address] NITRITE NADYA Negative Normal NEG [facility] Comment on above: Performed By: #### C BCA, BMP, 5643-2, 4024-6, 3298-7, 18098-1 #### [facility] ([id number]) [address] [place] [address] PH NADYA 6.0 Normal 5.0-8.5 [facility] Comment on above: Performed By: #### C BCA, BMP, 5643-2, 4024-6, 3298-7, 87023-8 #### [facility] ([id number]) [address] [place] [address] PROTEIN NADYA Negative Normal NEG [facility] Comment on above: Performed By: #### C BCA, BMP, 5643-2, 4024-6, 3298-7, 09129-6 #### [facility] ([id number]) [address] [place] [address] SPECIFIC GRAVITY NADYA 1.010 Normal 1.003-1.035 [facility] Comment on above: Performed By: #### C BCA, BMP, 5643-2, 4024-6, 3298-7, 77169-9 #### [facility] ([id number]) [address] [place] [address] UROBILINOGEN NADYA 0.2 eu/dL Normal <1.1 [facility] Comment on above: Performed By: #### C BCA, BMP, 5643-2, 4024-6, 3298-7, 12819-5 #### [facility] ([id number]) [address] [place] [address] Urine collection deviceon ER EXTRA URINES ER EXTRA URINE ORDER IN PROCESS Normal [facility] CT ABDOMEN PELVIS W IV CONTR Derrick 07-28-2024 CT ABDOMEN PELVIS W IV CONTRAST EXAMINATION: CT OF THE ABDOMEN AND PELVIS WITH CONTRAST 07/26/2024 11:24 pm TECHNIQUE: CT of the abdomen and pelvis was performed with the administration of intravenous contrast. Multiplanar reformatted images are provided for review. Automated exposure control, iterative reconstruction, and/or weight based adjustment of the mA/kV was utilized to reduce the radiation dose to as low as reasonably achievable. COMPARISON: January 11, 2024. HISTORY: ORDERING SYSTEM PROVIDED HISTORY: abd pain n/v/d TECHNOLOGIST PROVIDED HISTORY: abd pain n/v/d Decision Support Exception - unselect if not a suspected or confirmed emergency medical condition->Emergency Medical Condition (MA) FINDINGS: Lower Chest: Clear lung bases. Organs: The liver, gallbladder, spleen, pancreas and adrenal glands demonstrate no acute abnormality. The kidneys and collecting systems are unremarkable. GI/Bowel: The stomach, small bowel, and colon are normal in course and caliber without evidence of wall thickening or obstruction. Fluid is identified throughout the bowel. Normal appendix. Pelvis: Normal bladder. Status post hysterectomy. No suspicious adnexal masses. Peritoneum/Retroperi toneum: No free fluid or free air. No pathologic lymphadenopathy. Vasculature is unremarkable. Bones/Soft Tissues: No acute or aggressive osseous lesion. IMPRESSION: 1. Fluid identified throughout the bowel without significant distention or wall thickening. Findings may represent mild enteritis. 2. Hysterectomy. Interpreted by: Amanda Miller MD Signed by: Amanda Miller MD 07/28/24 Final result Normal [facility] Lactic Acidon 07-27-2024 Lactate (BldV) [Moles/Vol] 1.0 mmol/L 0.5 - 2.2 mmol/L [facility] Lactate [Moles/Vol] 1.0 mmol/L Normal 0.5-2.2 [facility] Comment on above: Performed By: #### C DP, CP, MG #### [facility] [address] [place] [address] Process Engineering Technician: Cholo Alicea MD Microscopic Urinalysison Bacteria LM Ql (Urine sed) 1+ Abnormal None [facility] Epithelial cells LM.HPF (Urine sed) [#/Area] 2 TO 5 [facility] Interpretation and review of laboratory results Abnormal [facility] RBC LM.HPF (Urine sed) [#/Area] 0 TO 2 [facility] WBC LM.HPF (Urine sed) [#/Area] 2 TO 5 [facility] UA w/Reflex Cultureon 2024 Bilirubin, SemiQt,Ur Negative Normal NEG [facility] Comment on above: Performed By: #### C DP, CP, MG #### [facility] [address] [place] [address] Process Engineering Technician: Cholo Alicea MD Blood, Urine Negative Normal NEG [facility] Comment on above: Performed By: #### C DP, CP, MG #### [facility] [address] [place] [address] Process Engineering Technician: Cholo Alicea MD Clarity (U) Clear Normal CLEAR [facility] Comment on above: Performed By: #### C DP, CP, MG #### [facility] [address] [place] [address] Process Engineering Technician: Cholo Alicea MD Color (U) Yellow Normal YEL [facility] Comment on above: Performed By: #### C DP, CP, MG #### [facility] [address] [place] [address] [place] [address] Process Engineering Technician: Cholo Alicea MD Glucose Ql (U) Negative Normal NEG [facility] Comment on above: Performed By: #### C DP, CP, MG #### [address] [place] [address] Process Engineering Technician: Cholo Alicea MD Ketones Ql (U) Negative Normal NEG [facility] Comment on above: Performed By: #### C DP, CP, MG #### [address] [place] [address] Process Engineering Technician: Cholo Alicea MD Leukocyte esterase Test strip Ql (U) Negative Normal NEG [facility] Comment on above: Performed By: #### C DP, CP, MG #### [address] [place] [address] Process Engineering Technician: Cholo Alicea MD Nitrite,Ur Negative Normal [facility] Comment on above: Performed By: #### C DP, CP, MG #### [address] [place] [address] Process Engineering Technician: Cholo Alicea MD PH,Ur 7.0 Normal 5.0-9.0 [facility] Comment on above: Performed By: #### C DP, CP, MG #### [facility] [address] [place] [address] [place] [address] Process Engineering Technician: Cholo Alicea MD Protein Ql (U) Negative Normal NEG [facility] Comment on above: Performed By: #### C DP, CP, MG #### [facility] [address] [place] [address] [address] [place], [place] [id number] Process Engineering Technician: Cholo Alicea MD Spec. Cataldo,Ur 1.010 Normal 1.010-1.020 [facility] Comment on above: Performed By: #### C ANTONIA LIU, MG #### [facility] [address] [place] [address] Process Engineering Technician: Cholo Alicea MD Urobilinogen,Ur Normal Normal 0.0-1.0 [facility] Comment on above: Performed By: #### C ANTONIA LIU, MG #### [facility] [address] [place] [address] Process Engineering Technician: Cholo Alicea MD Urinalysis with Reflex to Cu ltureon 07-27-2024 Bilirubin Ql (U) Negative NEGATIVE [facility] Clarity (U) Clear Clear [facility] Color (U) Yellow Yellow [facility] Glucose Test strip (U) [Mass/Vol] Negative NEGATIVE mg/dL [facility] Hemoglobin Auto test strip Ql (U) Negative NEGATIVE [facility] Ketones (U) [Mass/Vol] Negative NEGAT BENI mg/dL [facility] Leukocyte esterase Test strip Ql (U) Negative NEGATIVE [facility] Nitrite Ql (U) Negative NEGATIVE [facility] pH (U) 7.0 [pH] 5.0 - 9.0 [facility] Protein (U) [Mass/Vol] Negative NEGAT BENI mg/dL [facility] Specific gravity (U) [Rel density] 1.010 1.010 - 1.020 [facility] Urobilinogen Qn (U) Normal 0.0 - 1. 0 EU/dL [facility] Urinalysis,Microon 5 Bacteria 1+ Abnormal NONE [facility] Comment on above: Performed By: #### C ANTONIA LIU, MG #### [facility] [address] [place] [address] Process Engineering Technician: Cholo Alicea MD Epithelial cells LM Ql (Urine sed) 2 TO 5 Normal 0-25 [facility] Comment on above: Performed By: #### C DP, CP, MG #### [facility] [address] [place] [address] Process Engineering Technician: Cholo Alicea MD Urine RBC's 0 TO 2 Normal 0-2 [facility] Comment on above: Performed By: #### C DP, CP, MG #### [facility] [address] [place] [address] Process Engineering Technician: Cholo Alicea MD Urine WBC's 2 TO 5 Normal 0-5 [facility] Comment on above: Performed By: #### C DP, CP, MG #### [facility] [address] [place] [address] Process Engineering Technician: Cholo Alicea MD CBC with Auto Differentialon 07-26-2024 Basophils (Bld) [#/Vol] 0.05 10*3/uL [facility] Basophils/100 WBC (Bld) 0 % 0 - 2 % B on [facility] Eosinophils (Bld) [#/Vol] 0.05 10*3/uL [facility] Eosinophils/100 WBC (Bld) 0 % Low 1 - 4 % [facility] Erythrocyte distribution width (RBC) [Ratio] 12.0 % 11.8 - 14.4 % [facility] Hematocrit (Bld) [Volume fraction] 41.1 % 36.3 - 47.1 % [facility] Hemoglobin (Bld) [Mass/Vol] 14.2 g/dL 11.9 - 15.1 g/dL [facility] Immature granulocytes (Bld) [#/Vol] [facility] Immature granulocytes/100 WBC (Bld) 0 % 0 [facility] Interpretation and review of laboratory results Abnormal [facility] Lymphocytes/100 WBC (Bld) 10 % Low 24 - 43 % [facility] Lymphocytes/100 WBC (Bld) 1.22 % [facility] MCH (RBC) [Entitic mass] 30.1 pg 25.2 - 33.5 pg [facility] MCHC (RBC) [Mass/Vol] 34.5 g/dL 28.4 - 34.8 g/dL [facility] MCV (RBC) [Entitic vol] 87.1 fL 82.6 - 102.9 fL [facility] Monocytes/100 WBC (Bld) 6 % 3 - 12 % B on [facility] Monocytes/100 WBC (Bld) 0.69 % B on [facility] Neutrophils/100 WBC (Bld) 84 % High 36 - 65 % [facility] Nucleated RBC/100 WBC (Bld) [Ratio] 0.0 % 0.0 per 100 WBC [facility] Platelet mean volume (Bld) [Entitic vol] 10.1 fL 8.1 - 13.5 fL [facility] Platelets (Bld) [#/Vol] 330 10*3/uL [facility] RBC (Bld) [#/Vol] 4.72 10*6/uL 3.95 - 5.1 1 m/uL [facility] Segmented neutrophils/100 WBC (Bld) 9.93 % High [facility] WBC other (Bld) [#/Vol] 12.0 High B on [facility] CBC with Diffon 07-26-2024 Abs. Basophil 0.05 k/uL Normal 0.00-0.[address] [facility] Comment on above: Performed By: #### C DP, CP, MG #### [facility] [address] [place] [address] Process Engineering Technician: Cholo Alicea MD Abs.Imm.Granulocyte <0.03 Normal 0.00-0.30 [facility] Comment on above: Performed By: #### C DP, CP, MG #### [facility] [address] [place] [address] Process Engineering Technician: Cholo Alicea MD Abs.Neutrophil (Seg) 9.93 k/uL High 1.50-8.10 [facility] Comment on above: Performed By: #### C DP, CP, MG #### [facility] [address] [place], [facility] Process Engineering Technician: Cholo Alicea MD Basophils/100 WBC (Bld) 0 % Normal 0-2 M [facility] Comment on above: Performed By: #### C DP, CP, MG #### [address] [place] [id number] Process Engineering Technician: Cholo Alicea MD Eosinophils (Bld) [#/Vol] 0.05 10*3/uL Normal 0.00-0.44 [facility] Comment on above: Performed By: #### C DP, CP, MG #### [address] [place] [address] Process Engineering Technician: Cholo Alicea MD Eosinophils/100 WBC (Bld) 0 % Low 1-4 [facility] Comment on above: Performed By: #### C DP, CP, MG #### [address] [place], [place] [address] Process Engineering Technician: Cholo Alicea MD Erythrocyte distribution width (RBC) [Ratio] 12.0 % Normal 11.8-14.4 [facility] Comment on above: Performed By: #### C DP, CP, MG #### [address] [place] [id number] Process Engineering Technician: Cholo Alicea MD Hematocrit (Bld) [Volume fraction] 41.1 % Normal 36.3-47.1 [facility] Comment on above: Performed By: #### C DP, CP, MG #### [address] [place], [facility] Process Engineering Technician: Cholo Alicea MD Hemoglobin (Bld) [Mass/Vol] 14.2 g/dL Normal 11.9-15.1 [facility] Comment on above: Performed By: #### C DP, CP, MG #### [address] [place], [facility]83 Process Engineering Technician: Cholo Alicea MD Immature granulocytes/100 WBC (Bld) 0 % Normal 0 [facility] Comment on above: Performed By: #### C DP, CP, MG #### [facility] [address] [place], [place] [id number] Process Engineering Technician: Cholo Alicea MD Lymphocytes (Bld) [#/Vol] 1.22 10*3/uL Normal 1.10-3.70 [facility] Comment on above: Performed By: #### C DP, CP, MG #### [address] [place], [facility]83 Process Engineering Technician: Cholo Alicea MD Lymphocytes/100 WBC (Bld) 10 % Low 24-43 [facility] Comment on above: Performed By: #### C DP, CP, MG #### [address] [place], [facility] ( Process Engineering Technician: Cholo Alicea MD MCH (RBC) [Entitic mass] 30.1 pg Normal 25.2-33.5 [facility] Comment on above: Performed By: #### C DP, CP, MG #### [address] [place], [facility]83 Process Engineering Technician: Cholo Alicea MD MCHC (RBC) [Mass/Vol] 34.5 g/dL Normal 28.4-34.8 [facility] Comment on above: Performed By: #### C DP, CP, MG #### [address] [place], [facility]83 Process Engineering Technician: Cholo Alicea MD MCV (RBC) [Entitic vol] 87.1 fL Normal 82.6-102.9 M [facility] Comment on above: Performed By: #### C DP, CP, MG #### [address] [place] [address] Process Engineering Technician: Cholo Alicea MD Monocytes (Bld) [#/Vol] 0.69 10*3/uL Normal 0.10-1.20 [facility] Comment on above: Performed By: #### C DP, CP, MG #### [facility] [address] [place], [place] 2328783 Process Engineering Technician: Cholo Alicea MD Monocytes/100 WBC (Bld) 6 % Normal 3-12 M [facility] Comment on above: Performed By: #### C DP, CP, MG #### [facility] [address] [place] [address] Process Engineering Technician: Cholo Alicea MD Neutrophil (Seg) 84 % High 36-65 [facility] Comment on above: Performed By: #### C DP, CP, MG #### [facility] [address] [place], [place] 1809783 Process Engineering Technician: Cholo Alicea MD NRBC Automated 0.0 per 100 WBC Normal 0.0 [facility] Comment on above: Performed By: #### C DP, CP, MG #### [facility] [address] [place], [place] 0849183 Process Engineering Technician: Cholo Alicea MD Platelet mean volume (Bld) [Entitic vol] 10.1 fL Normal 8.1-13.5 [facility] Comment on above: Performed By: #### C DP, CP, MG #### [facility] [address] [place] [address] Process Engineering Technician: Cholo Alicea MD Platelets (Bld) [#/Vol] 330 10*3/uL Normal 138-453 [facility] Comment on above: Performed By: #### C DP, CP, MG #### [facility] [address] [place] [address] Process Engineering Technician: Cholo Alicea MD RBC (Bld) [#/Vol] 4.72 10*6/uL Normal 3.95-5.11 [facility] Comment on above: Performed By: #### C DP, CP, MG #### [facility] [address] [place], [place] 9793983 Process Engineering Technician: Cholo Alicea MD WBC (Bld) [#/Vol] 12.0 10*3/uL High 3.5-11.3 [facility] Comment on above: Performed By: #### C DP, CP, MG #### [facility] [address] [place], [place] [id number] Process Engineering Technician: Cholo Alicea MD Comp Metabolic Profon 2024 Albumin [Mass/Vol] 4.5 g/dL Normal 3.5-5.2 [facility] Comment on above: Performed By: #### C DP, CP, MG #### [address] [place], [place] 5266283 Process Engineering Technician: Cholo Alicea MD Albumin/Glob Ratio 1.7 Normal 1.0-2.5 [facility] Comment on above: Performed By: #### C DP, CP, MG #### [address] [place], [place] 4996583 Process Engineering Technician: Cholo Alicea MD Alkaline Phos 67 U/L Normal 35-[address] [facility] Comment on above: Performed By: #### C DP, CP, MG #### [facility] [address] [place], [place] 0945683 Process Engineering Technician: Cholo Alicea MD ALT [Catalytic activity/Vol] 16 U/L Normal 10-35 [facility] Comment on above: Performed By: #### C DP, CP, MG #### [facility] [address] [place] [address] Process Engineering Technician: Cholo Alicea MD Anion gap [Moles/Vol] 12 mmol/L Normal 9-16 [facility] Comment on above: Performed By: #### C DP, CP, MG #### [facility] [address] [place], [place] 4422383 Process Engineering Technician: Cholo Alicea MD AST [Catalytic activity/Vol] 20 U/L Normal 10-35 [facility] Comment on above: Performed By: #### C DP, CP, MG #### [facility] [address] [place], [place] 0650583 Process Engineering Technician: Cholo Alicea MD Bilirubin [Mass/Vol] 0.5 mg/dL Normal 0.00-1.20 [facility] Comment on above: Performed By: #### C DP, CP, MG #### [facility] [address] [place], [place] 1380383 Process Engineering Technician: Cholo Alicea MD BUN/CRE Ratio 20 Normal 9-[address] [facility] Comment on above: Performed By: #### C DP, CP, MG #### [facility] [address] [place], [place] 6293183 Process Engineering Technician: Cholo Alicea MD Calcium [Mass/Vol] 9.1 mg/dL Normal 8.6-10.4 [facility] Comment on above: Performed By: #### C DP, CP, MG #### [facility] [address] [place], [place] 4810483 Process Engineering Technician: Cholo Alicea MD Chloride [Moles/Vol] 100 mmol/L Normal 98-107 [facility] Comment on above: Performed By: #### C DP, CP, MG #### [facility] [address] [place], [place] 1232383 Process Engineering Technician: Cholo Alicea MD CO2 [Moles/Vol] 27 mmol/L Normal 20-31 [facility] Comment on above: Performed By: #### C DP, CP, MG #### [facility] [address] [place], [place] [address]883 Process Engineering Technician: Cholo Alicea MD Creatinine [Mass/Vol] 0.8 mg/dL Normal 0.50-0.90 [facility] Comment on above: Performed By: #### C DP, CP, MG #### [address] [place] [address] Process Engineering Technician: Cholo Alicea MD GFR/1.73 sq M.predicted among non-blacks MDRD (S/P/Bld) [Vol rate/Area] mL/min/{1.73_m2} Normal >60 [facility] Comment on above: Result Comment: These results [...] secretion. Performed By: #### C DP, CP, MG #### [facility] [address] [place] [address] [place] [address] Process Engineering Technician: Cholo Alicea MD Glucose [Mass/Vol] 92 mg/dL Normal 74-99 [facility] Comment on above: Performed By: #### C DP, CP, MG #### [address] [place] [address] Process Engineering Technician: Cholo Alicea MD Potassium [Moles/Vol] 3.4 mmol/L Low 3.7-5.3 [facility] Comment on above: Performed By: #### C DP, CP, MG #### [address] [place] [address] Process Engineering Technician: Cholo Alicea MD Protein [Mass/Vol] 7.3 g/dL Normal 6.6-8.7 [facility] Comment on above: Performed By: #### C DP, CP, MG #### [address] [place] [address] Process Engineering Technician: Cholo Alicea MD Sodium [Moles/Vol] 139 mmol/L Normal 136-145 [facility] Comment on above: Performed By: #### C DP, CP, MG #### [facility] [address] [place] [address] Process Engineering Technician: Cholo Alicea MD Urea nitrogen [Mass/Vol] 16 mg/dL Normal 6-20 [facility] Comment on above: Performed By: #### C DP, CP, MG #### [facility] [address] [place] [address] Process Engineering Technician: Cholo Alicea MD Comprehensive Metabolic Pane [facility] 07-26-2024 Albumin [Mass/Vol] 4.5 g/dL 3.5 - 5.2 g/dL [facility] Albumin/Globulin [Mass ratio] 1.7 {ratio} 1.0 - 2.5 [facility] ALP [Catalytic activity/Vol] 67 U/L 35 - 104 U/L [facility] ALT [Catalytic activity/Vol] 16 U/L 10 - 35 U/L [facility] Anion gap [Moles/Vol] 12 mmol/L 9 - 16 mmol/L [facility] AST [Catalytic activity/Vol] 20 U/L 10 - 35 U/L [facility] Bilirubin [Mass/Vol] 0.5 mg/dL 0.00 - 1.20 mg/dL [facility] Calcium [Mass/Vol] 9.1 mg/dL 8.6 - 10. 4 mg/dL [facility] Chloride [Moles/Vol] 100 mmol/L 98 - 10 7 mmol/L [facility] CO2 [Moles/Vol] 27 mmol/L 20 - 31 mmol/L [facility] Creatinine [Mass/Vol] 0.8 mg/dL 0.50 - 0.90 mg/dL [facility] Est, Glom Filt Rate - PINF [facility] Comment on above: These results are not [...] that affects renal tubular secretion. Glucose [Mass/Vol] 92 mg/dL 74 - 99 mg/dL [facility] Interpretation and review of laboratory results Abnormal [facility] Potassium [Moles/Vol] 3.4 mmol/L Low 3.7 - 5.3 mmol/L [facility] Protein [Mass/Vol] 7.3 g/dL 6.6 - 8.7 g/dL [facility] Sodium [Moles/Vol] 139 mmol/L 136 - 145 mmol/L [facility] Urea nitrogen [Mass/Vol] 16 mg/dL 6 - 20 mg/dL [facility] Urea nitrogen/Creatinine [Mass ratio] 20 mg/mg 9 - 20 [facility] Flu A/B Ag Detectionon 07-26 Flu A Ag Detection Negative Normal NEG [facility] Comment on above: Result Comment: for Influenza A Antigen Performed By: #### C DP, CP, MG #### [address] [place] [address] Process Engineering Technician: Cholo Alicea MD Flu B Ag Detection Negative Normal [facility] Comment on above: Result Comment: for Influenza B Antigen. Performed By: #### C DP, CP, MG #### [facility] [address] [place] [address] [place] [address] Process Engineering Technician: Cholo Alicea MD Lipaseon 07-26-2024 Lipase [Catalytic activity/Vol] 57 U/L 13 - 60 U/L [facility] Lipase [Catalytic activity/Vol] 57 U/L Normal 13-60 [facility] Comment on above: Performed By: #### C DP, CP, MG #### [address] [place] [address] Process Engineering Technician: Cholo Alicea MD Magnesiumon 07-26-2024 Magnesium [Mass/Vol] 1.6 mg/dL 1.6 - 2 .6 mg/dL [facility] Magnesium [Mass/Vol] 1.6 mg/dL Normal 1.6-2.6 [facility] Comment on above: Performed By: #### C DP, CP, MG #### [facility] [address] [place] [address] Process Engineering Technician: Cholo Alicea MD No Panel Informationon 07-26 [facility] Portable XR Chest AP single viewon 07-26-2024 No acute pulmonary findings. [facility] RIS CONSOLIDATED EXAMINATION: ONE XRAY VIEW OF THE CHEST 07/26/2024 11:00 pm COMPARISON: None. HISTORY: ORDERING SYSTEM PROVIDED HISTORY: syncope TECHNOLOGIST PROVIDED HISTORY: syncope FINDINGS: Lungs: Clear. Pleura: No effusion or pneumothorax. Cardiomediastinal silhouette: Normal contours. Bones: No acute bony findings. Soft tissues: Normal. [facility] RIS CONSOLIDATED Sharif Hernandez DO - 07/26/2024 EXAMINATION: ONE XRAY VIEW OF THE CHEST 07/26/2024 11:00 pm COMPARISON: None. HISTORY: ORDERING SYSTEM PROVIDED HISTORY: syncope TECHNOLOGIST PROVIDED HISTORY: syncope FINDINGS: Lungs: Clear. Pleura: No effusion or pneumothorax. Cardiomediastinal silhouette: Normal contours. Bones: No acute bony findings. Soft tissues: Normal. IMPRESSION: No acute pulmonary findings. [facility] Radiology Study observation (narrative) [facility] Portable XR Chest AP single viewOrdered By: Sharif Hernandez on 07-26-2024 [facility] Work Phone: Rapid influenza A/B antigens on 07-26-2024 FLUAV Ag Ql (Unsp spec) Negative NEGATIVE B on [facility] Comment on above: for Influenza A Anti gen FLUBV Ag Ql (Unsp spec) Negative NEGATIVE B on [facility] Comment on above: for Influenza B Anti gen. [facility] Troponinon 07-26-2024 Troponin I.cardiac High sensitivity method [Mass/Vol] ng/L 0 - 14 ng/L [facility] Comment on above: High Sensitivity Tro ponin values cannot be compared with other Troponin methodologies. Troponin, High Sens <6 Normal 0-14 [facility] Comment on above: Result Comment: High Sensitivity Troponin values cannot be compared with other Troponin methodologies. Performed By: #### C DP, CP, MG #### [facility] [address] [place] [address] Process Engineering Technician: Cholo Alicea MD XR CHEST PORTABLEon 07-26-19 XR CHEST PORTABLE EXAMINATION: ONE XRAY VIEW OF THE CHEST 07/26/2024 11:00 pm COMPARISON: None. HISTORY: ORDERING SYSTEM PROVIDED HISTORY: syncope TECHNOLOGIST PROVIDED HISTORY: syncope FINDINGS: Lungs: Clear. Pleura: No effusion or pneumothorax. Cardiomediastinal silhouette: Normal contours. Bones: No acute bony findings. Soft tissues: Normal. IMPRESSION: No acute pulmonary findings. Interpreted by: Sharif Hernandez DO Signed by: Sharif Hernandez DO 07/26/24 Final result Normal [facility] BASIC METABOLIC PANLon 07-16 Anion gap [Moles/Vol] 7 mmol/L Normal 5-15 [facility] Comment on above: Performed By: #### N UM #### [facility] ([id number]) [address] [place] [address] Calcium [Mass/Vol] 9.2 mg/dL Normal 8.5-10.5 [facility] Comment on above: Performed By: #### N UM #### [facility] ([id number]) [address] [place] [address] Chloride [Moles/Vol] 104 mmol/L Normal 98-109 [facility] Comment on above: Performed By: #### N UM #### [facility] ([id number]) [address] [place] [address] CO2 [Moles/Vol] 27 mmol/L Normal 22-32 [facility] Comment on above: Performed By: #### N UM #### [facility] ([id number]) [address] [place] [address] Creatinine [Mass/Vol] 0.80 mg/dL Normal 0.40-1.00 [facility] Comment on above: Result Comment: METH OD TRACEABLE TO IDMS STANDARD Performed By: #### N UM #### [facility] ([id number]) [address] [place] [address] eGFR (CKD-EPI) NON-RACE DEPENDENT >90 Normal >59 [facility] Comment on above: Result Comment: Reported eGFR is based on the CKD-EPI 2020 equation that does not use a race coefficient. Performed By: #### N UM #### [facility] ([id number]) [address] [place] [address] Glucose [Mass/Vol] 76 mg/dL Normal 65-99 [facility] Comment on above: Performed By: #### N UM #### [facility] ([id number]) [address] [place] [address] Potassium [Moles/Vol] 4.7 mmol/L Normal 3.5-5.0 [facility] Comment on above: Performed By: #### N UM #### [facility] ([id number]) [address] [place] [address] Sodium [Moles/Vol] 138 mmol/L Normal 134-146 [facility] Comment on above: Performed By: #### N UM #### [facility] ([id number]) [address] [place] [address] Urea nitrogen [Mass/Vol] 12 mg/dL Normal 5-23 [facility] Comment on above: Performed By: #### N UM #### [facility] ([id number]) [address] [place] [address] CBC AND AUTO DIFFon 20 25 ABSOLUTE BASOPHIL 0.1 X10E9/L Normal 0.0-0.2 [facility] Comment on above: Performed By: #### N UM #### [facility] ([id number]) [address] [place] [address] ABSOLUTE NEUTROPHIL 4.5 X10E9/L Normal 1.5-6.6 [facility] Comment on above: Performed By: #### N UM #### [facility] ([id number]) [address] [place] [address] Basophils/100 WBC (Bld) 0.8 % Normal [facility] Comment on above: Performed By: #### N UM #### [facility] ([id number]) [address] [place] [address] Eosinophils (Bld) [#/Vol] 0.0 10*3/uL Normal 0.0-0.4 [facility] Comment on above: Performed By: #### N UM #### [facility] ([id number]) [address] [place] [address] Eosinophils/100 WBC (Bld) 0.6 % Normal [facility] Comment on above: Performed By: #### N UM #### [facility] ([id number]) [address] [place] [address] Erythrocyte distribution width (RBC) [Ratio] 12.6 % Normal 11.5-15.0 [facility] Comment on above: Performed By: #### N UM #### [facility] ([address] [place] [address]) [address] [place] [address] Hematocrit (Bld) [Volume fraction] 41.4 % Normal 35-47 [facility] Comment on above: Performed By: #### N UM #### [facility] ([id number]) [address] [place] [address] Hemoglobin (Bld) [Mass/Vol] 14.1 g/dL Normal 11.7-15.5 [facility] Comment on above: Performed By: #### N UM #### [facility] ([id number]) [address] [place] [address] Lymphocytes (Bld) [#/Vol] 2.5 10*3/uL Normal 1.0-3.5 [facility] Comment on above: Performed By: #### N UM #### [facility] ([id number]) [address] [place] [address] Lymphocytes/100 WBC (Bld) 31.9 % Normal [facility] Comment on above: Performed By: #### N UM #### [facility] ([id number]) [address] [place] [address] MCH (RBC) [Entitic mass] 30.0 pg Normal 27-34 [facility] Comment on above: Performed By: #### N UM #### [facility] ([id number]) [address] [place] [address] MCHC (RBC) [Mass/Vol] 34.0 g/dL Normal 32-36 [facility] Comment on above: Performed By: #### N UM #### [facility] ([id number]) [address] [place] [address] MCV (RBC) [Entitic vol] 88 fL Normal 80-100 P [facility] Comment on above: Performed By: #### N UM #### [facility] ([id number]) [address] [place] [address] Monocytes (Bld) [#/Vol] 0.7 10*3/uL Normal 0-0.9 [facility] Comment on above: Performed By: #### N UM #### [facility] ([id number]) [address] [place] [address] Monocytes/100 WBC (Bld) 8.8 % Normal [facility] Comment on above: Performed By: #### N UM #### [facility] ([id number]) [address] [place] [address] Neutrophils/100 WBC (Bld) 57.9 % Normal [facility] Comment on above: Performed By: #### N UM #### [facility] ([id number]) [address] [place] [address] Platelet mean volume (Bld) [Entitic vol] 8.5 fL Normal 7-12 [facility] Comment on above: Performed By: #### N UM #### [facility] ([id number]) [address] [place] [address] Platelets (Bld) [#/Vol] 337 10*3/uL Normal 150-450 [facility] Comment on above: Performed By: #### N UM #### [facility] ([id number]) [address] [place] [address] RBC COUNT 4.70 X10E12/L Normal 3.80-5.20 [facility] Comment on above: Performed By: #### N UM #### [facility] ([id number]) [address] [place] [address] WBC (Bld) [#/Vol] 7.8 10*3/uL Normal 4.0-11.0 [facility] Comment on above: Performed By: #### N UM #### [facility] ([id number]) [address] [place] [address] CT BRAIN WO CONTon CT BRAIN WO CONT CT BRAIN WO CONT Examination: Noncontrast brain CT Date of Exam:07/16/2024 Clinical History:Confusion Comparison:06/27/2024 Procedure: Multi-detector CT performed through the brain without IV contrast. Automatic exposure control (AEC) was utilized. Findings: There is no intracranial hemorrhage, extra-axial fluid collection, mass effect, or hydrocephalus. White-white matter differentiation is appropriate. Infarcts may be occult on CT, but grossly no acute infarct identified There is no midline shift. IMPRESSION: 1. No acute findings. All CT scans at this facility use dose modulation, iterative reconstruction, and/or weight based dosing when appropriate to reduce radiation dose to as low as reasonably achievable. Finalized by Prem Martinez MD on 07/16/2024 8:[address] [facility] Glucose Glucometer (BldC) [M ass/Vol]on 07-16-2024 Glucose [Mass/Vol] 92 mg/dL Normal 65-99 [facility] HCG ( test) Ql (U)o n 07-16-2024 Beta HCG ( test) Ql (U) Negative Normal NEG [facility] Comment on above: Performed By: #### C BCA, BMP, 5643-2, 4024-6, 3298-7, 00077-4 #### [facility] ([id number]) [address] [place] [address] LIVER PANELon 07-16-2024 Albumin [Mass/Vol] 4.6 g/dL Normal 3.2-5.3 [facility] Comment on above: Performed By: #### C BCA, BMP, 5643-2, 4024-6, 3298-7, 70965-2 #### [facility] ([id number]) [address] [place] [address] ALP [Catalytic activity/Vol] 59 U/L Normal 39-130 [facility] Comment on above: Performed By: #### C BCA, BMP, 5643-2, 4024-6, 3298-7, 54957-0 #### [facility] ([id number]) [address] [place] [address] ALT [Catalytic activity/Vol] 9 U/L Normal 0-31 [facility] Comment on above: Performed By: #### C BCA, BMP, 5643-2, 4024-6, 3298-7, 04318-7 #### [facility] ([id number]) [address] [place] [address] AST [Catalytic activity/Vol] 21 U/L Normal 0-41 [facility] Comment on above: Performed By: #### C BCA, BMP, 5643-2, 4024-6, 3298-7, 35821-2 #### [facility] ([id number]) [address] [place] [address] Bilirubin [Mass/Vol] 0.4 mg/dL Normal 0.3-1.2 [facility] Comment on above: Performed By: #### C BCA, BMP, 5643-2, 4024-6, 3298-7, 56801-9 #### [facility] ([id number]) [address] [place] [address] Bilirubin.direct [Mass/Vol] 0.1 mg/dL Normal 0.0-0.4 [facility] Comment on above: Result Comment: SPEC IMEN HEMOLYZED, RESULTS DECREASED SLIGHTLY HEMOLYZED Performed By: #### C BCA, BMP, 5643-2, 4024-6, 3298-7, 87114-4 #### [facility] ([id number]) [address] [place] [address] Protein [Mass/Vol] 7.6 g/dL Normal 6.0-8.0 [facility] Comment on above: Performed By: #### C BCA, BMP, 5643-2, 4024-6, 3298-7, 63732-7 #### [facility] ([id number]) [address] [place] [address] Troponin I.cardiac High sens itivity method [Mass/Vol]on 07-16-2024 1 HOUR TROP I, HIGH SENSITIVITY <2 Normal <16 [facility] Comment on above: Performed By: #### C BCA, BMP, 5643-2, 4024-6, 3298-7, 18362-4 #### [facility] ([id number]) [address] [place] [address] TROPONIN I, HIGH SENSITIVITY <2 Normal <16 [facility] Comment on above: Performed By: #### C BCA, BMP, 5643-2, 4024-6, 3298-7, 67873-8 #### [facility] ([id number]) [address] [facility] [place] [address] Urine collection deviceon ER EXTRA URINES ER EXTRA URINE ORDER IN PROCESS Normal [facility] BASIC METABOLIC PANLon 07-13 Anion gap [Moles/Vol] 8 mmol/L Normal 5-15 [facility] Comment on above: Performed By: #### 8 9579-7, CBCA, BMP #### [facility] ([id number]) [address] [place] [address] Calcium [Mass/Vol] 9.6 mg/dL Normal 8.5-10.5 [facility] Comment on above: Performed By: #### 8 9579-7, CBCA, BMP #### [facility] ([id number]) [address] [place] [address] Chloride [Moles/Vol] 105 mmol/L Normal 98-109 [facility] Comment on above: Performed By: #### 8 9579-7, CBCA, BMP #### [facility] ([id number]) [address] [place] [address] 59902 CO2 [Moles/Vol] 26 mmol/L Normal 22-32 [facility] Comment on above: Performed By: #### 8 9579-7, CBCA, BMP #### [facility] ([id number]) [address] [place] [address] Creatinine [Mass/Vol] 0.84 mg/dL Normal 0.40-1.00 [facility] Comment on above: Result Comment: METH OD TRACEABLE TO IDMS STANDARD Performed By: #### 8 9579-7, CBCA, BMP #### [facility] ([id number]) [address] [place] [address] eGFR (CKD-EPI) NON-RACE DEPENDENT >90 Normal >59 [facility] Comment on above: Result Comment: Reported eGFR is based on the CKD-EPI 2020 equation that does not use a race coefficient. Performed By: #### 8 9579-7, CBCA, BMP #### [facility] ([id number]) [address] [place] [address] Glucose [Mass/Vol] 96 mg/dL Normal 65-99 [facility] Comment on above: Performed By: #### 8 9579-7, CBCA, BMP #### [facility] ([id number]) [address] [place] [address]100 Potassium [Moles/Vol] 4.7 mmol/L Normal 3.5-5.0 [facility] Comment on above: Performed By: #### 8 9579-7, CBCA, BMP #### [facility] ([id number]) [address] [place] [address]2707 Sodium [Moles/Vol] 139 mmol/L Normal 134-146 [facility] Comment on above: Performed By: #### 8 9579-7, CBCA, BMP #### [facility] ([id number]) [address] [place] [address] 35587 Urea nitrogen [Mass/Vol] 14 mg/dL Normal 5-23 [facility] Comment on above: Performed By: #### 8 9579-7, CBCA, BMP #### [facility] ([id number]) [address] [place] [address] CBC AND AUTO DIFFon 02-14-20 25 ABSOLUTE BASOPHIL 0.1 X10E9/L Normal 0.0-0.2 [facility] Comment on above: Performed By: #### 8 9579-7, CBCA, BMP #### [facility] ([id number]) [address] [place] [address] ABSOLUTE NEUTROPHIL 4.8 X10E9/L Normal 1.5-6.6 [facility] Comment on above: Performed By: #### 8 9579-7, CBCA, BMP #### [facility] ([id number]) [address] [place] [address]49[address] Basophils/100 WBC (Bld) 1.0 % Normal [facility] Comment on above: Performed By: #### 8 9579-7, CBCA, BMP #### [facility] ([id number]) [address] [place] [address]84[address] Eosinophils (Bld) [#/Vol] 0.1 10*3/uL Normal 0.0-0.4 [facility] Comment on above: Performed By: #### 8 9579-7, CBCA, BMP #### [facility] ([id number]) [address] [place] [address] Eosinophils/100 WBC (Bld) 1.1 % Normal [facility] Comment on above: Performed By: #### 8 9579-7, CBCA, BMP #### [facility] ([id number]) [address] [place] [address] Erythrocyte distribution width (RBC) [Ratio] 12.7 % Normal 11.5-15.0 [facility] Comment on above: Performed By: #### 8 9579-7, CBCA, BMP #### [facility] ([id number]) [address] [place] [address]65[address] Hematocrit (Bld) [Volume fraction] 40.9 % Normal 35-47 [facility] Comment on above: Performed By: #### 8 9579-7, CBCA, BMP #### [facility] ([id number]) [address] [place] [address] 31117 Hemoglobin (Bld) [Mass/Vol] 13.9 g/dL Normal 11.7-15.5 [facility] Comment on above: Performed By: #### 8 9579-7, CBCA, BMP #### [facility] ([id number]) [address] [place] [address] 27211 Lymphocytes (Bld) [#/Vol] 4.1 10*3/uL High 1.0-3.5 [facility] Comment on above: Performed By: #### 8 9579-7, CBCA, BMP #### [facility] ([id number]) [address] [place] [address] 90886 Lymphocytes/100 WBC (Bld) 41.5 % Normal [facility] Comment on above: Performed By: #### 8 9579-7, CBCA, BMP #### [facility] ([id number]) [address] [place] [address] 41141 MCH (RBC) [Entitic mass] 29.8 pg Normal 27-34 [facility] Comment on above: Performed By: #### 8 9579-7, CBCA, BMP #### [facility] ([id number]) [address] [place] [address] 30864 MCHC (RBC) [Mass/Vol] 34.1 g/dL Normal 32-36 [facility] Comment on above: Performed By: #### 8 9579-7, CBCA, BMP #### [facility] ([id number]) [address] [place] [address] 12931 MCV (RBC) [Entitic vol] 88 fL Normal 80-100 [facility] Comment on above: Performed By: #### 8 9579-7, CBCA, BMP #### [facility] ([id number]) [address] [place] [address] 41528 Monocytes (Bld) [#/Vol] 0.7 10*3/uL Normal 0-0.9 [facility] Comment on above: Performed By: #### 8 9579-7, CBCA, BMP #### [facility] ([id number]) [address] [place] [address] 56408 Monocytes/100 WBC (Bld) 7.5 % Normal [facility] Comment on above: Performed By: #### 8 9579-7, CBCA, BMP #### [facility] ([id number]) [address] [place] [address] 17787 Neutrophils/100 WBC (Bld) 48.9 % Normal [facility] Comment on above: Performed By: #### 8 9579-7, CBCA, BMP #### [facility] ([id number]) [address] [place] [address] 21742 Platelet mean volume (Bld) [Entitic vol] 7.9 fL Normal 7-12 [facility] Comment on above: Performed By: #### 8 9579-7, CBCA, BMP #### [facility] ([id number]) [address] [place] [address] 20536 Platelets (Bld) [#/Vol] 339 10*3/uL Normal 150-450 [facility] Comment on above: Performed By: #### 8 9579-7, CBCA, BMP #### [facility] ([id number]) [address] [place] [address] 81031 RBC COUNT 4.68 X10E12/L Normal 3.80-5.20 [facility] Comment on above: Performed By: #### 8 9579-7, CBCA, BMP #### [facility] ([id number]) [address] [place], [place] [address] WBC (Bld) [#/Vol] 9.8 10*3/uL Normal 4.0-11.0 [facility] Comment on above: Performed By: #### 8 9579-7, CBCA, BMP #### [facility] ([id number]) [address] [place] [address] 82465 Troponin I.cardiac High sens itivity method [Mass/Vol]on 07-13-2024 1 HOUR TROP I, HIGH SENSITIVITY <2 Normal <16 [facility] Comment on above: Performed By: #### 8 9579-7 #### [facility] ([id number]) [address] [place] [address] TROPONIN I, HIGH SENSITIVITY <2 Normal <16 [facility] Comment on above: Performed By: #### 8 9579-7, CBCA, BMP #### [facility] ([id number]) [address] [place] [address] XR CHEST 1 VWon 07-13-2024 XR CHEST 1 VW XR CHEST 1 VW Single view chest History:CP Difficulty breathing, shortness of breath Comparison: 11/19/2023 Findings: Single portable view of the chest. Stable cardiomediastinal silhouette. No new focal opacity, effusion or pneumothorax. Impression: No definitive acute cardiopulmonary process. 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 fluids and obtain upright posture slowly. Follow-up with ordering physician for further recommendations and evaluation. [facility]OLTZY[facility] TECHNIQUE: After informed consent was obtained and confirmed, Cari Quijano who is a 29 y.o. female was brought to the procedure area in a fasting state. The patient was monitored supine with continuous telemetry and intermittent automatic blood pressure cuff monitoring for 10 minutes. The Baseline blood pressure was 122/82 with a heart rate of 75 at baseline. The patient was then placed in a 70 upright position. During that interval, blood pressure recordings ranged from a high of 134/97 to a low of 107/82. The maximum heart rate recorded was 125 bpm, and the minimum was 84 bpm. Patient symptoms included Diaphoresis; Near Syncope (dizzy, weakness, blurry vision, head pressure, lightheaded) Duration of patient standing in 70 degree upright position was 20 minutes. Test was stopped due to Syncope The procedure was ended by bringing the patient back to zero (0) degree. The patient was monitored until baseline conditions resumed. The patient tolerated the procedure well and there were no complications. [facility]OLTZYMED Radiology Study observation (narrative) [facility] [employer] Tilt table studyOrdered By: Anatoly Mendosa on 07-02-2024 [facility] Work Phone: ACETAMINOPHENon 06-27-2024 Acetaminophen [Mass/Vol] 3.0 ug/mL Low 10.0-30.0 [facility] Comment on above: Result Comment: Refe rence ranges are for therapeutic limits. Performed By: #### Franco CHACON, 3040-3, LIVR, BMP #### [facility] ([id number]) [address] [place] [address] CBC AND AUTO DIFFon 06-27-19 ABSOLUTE BASOPHIL 0.1 X10E9/L Normal 0.0-0.2 [facility] Comment on above: Performed By: #### Franco CHACON, 3040-3, LIVR, BMP #### [facility] ([id number]) [address] [place] [address] 23912 ABSOLUTE NEUTROPHIL 4.5 X10E9/L Normal 1.5-6.6 [facility] Comment on above: Performed By: #### Franco CHACON, 3040-3, LIVR, BMP #### [facility] ([id number]) [address] [place] [address] 43874 Basophils/100 WBC (Bld) 1.2 % Normal [facility] Comment on above: Performed By: #### Franco CHACON 3040-3, LIVR, BMP #### [facility] ([id number]) [address] [place] [address] 10249 Eosinophils (Bld) [#/Vol] 0.1 10*3/uL Normal 0.0-0.4 [facility] Comment on above: Performed By: #### Franco CHACON, 3040-3, LIVR, BMP #### [facility] ([id number]) [address] [place] [address] 84560 Eosinophils/100 WBC (Bld) 1.2 % Normal [facility] Comment on above: Performed By: #### Franco CHACON, 0-3, LIVR, BMP #### [facility] ([id number]) [address] [place] [address] 57175 Erythrocyte distribution width (RBC) [Ratio] 12.7 % Normal 11.5-15.0 [facility] Comment on above: Performed By: #### Franco CHACON, 0-3, LIVR, BMP #### [facility] ([id number]) [address] [place] [address] 72097 Hematocrit (Bld) [Volume fraction] 38.0 % Normal 35-47 [facility] Comment on above: Performed By: #### Franco CHACON, 3039-3, LIVR, BMP #### [facility] ([id number]) [address] [place] [address] 99456 Hemoglobin (Bld) [Mass/Vol] 12.9 g/dL Normal 11.7-15.5 [facility] Comment on above: Performed By: #### Franco CHACON, 3, LIVR, BMP #### [facility] ([id number]) [address] [place] [address] 17492 Lymphocytes (Bld) [#/Vol] 3.2 10*3/uL Normal 1.0-3.5 [facility] Comment on above: Performed By: #### Franco CHACON, 0-3, LIVR, BMP #### [facility] ([id number]) [address] [place] [address] 36386 Lymphocytes/100 WBC (Bld) 37.6 % Normal [facility] Comment on above: Performed By: #### Franco CHACON, 0-3, LIVR, BMP #### [facility] ([id number]) [address] [place] [address] 62759 MCH (RBC) [Entitic mass] 30.2 pg Normal 27-34 [facility] Comment on above: Performed By: #### Franco CHACON, 3040-3, LIVR, BMP #### [facility] ([id number]) [address] [place] [address] 43411 MCHC (RBC) [Mass/Vol] 33.9 g/dL Normal 32-36 [facility] Comment on above: Performed By: #### Franco CHACON, 3040-3, LIVR, BMP #### [facility] ([id number]) [address] [place] [address] 83948 MCV (RBC) [Entitic vol] 89 fL Normal 80-100 [facility] Comment on above: Performed By: #### Franco CHACON, 3040-3, LIVR, BMP #### [facility] ([id number]) [address] [place] [address] 96735 Monocytes (Bld) [#/Vol] 0.6 10*3/uL Normal 0-0.9 [facility] Comment on above: Performed By: #### Franco CHACON, 3040-3, LIVR, BMP #### [facility] ([id number]) [address] [place] [address] 92418 Monocytes/100 WBC (Bld) 7.1 % Normal [facility] Comment on above: Performed By: #### Franco CHACON, 3040-3, LIVR, BMP #### [facility] ([id number]) [address] [place] [address] 56600 Neutrophils/100 WBC (Bld) 52.9 % Normal [facility] Comment on above: Performed By: #### Franco CHACON, 3040-3, LIVR, BMP #### [facility] ([id number]) [address] [place] [address] 87347 Platelet mean volume (Bld) [Entitic vol] 7.8 fL Normal 7-12 [facility] Comment on above: Performed By: #### Franco CHACON, 3040-3, LIVR, BMP #### [facility] ([id number]) [address] [place] [address] 17268 Platelets (Bld) [#/Vol] 408 10*3/uL Normal 150-450 [facility] Comment on above: Performed By: #### Franco CHACON, 3040-3, LIVR, BMP #### [facility] ([id number]) [address] [place] [address] 60029 RBC COUNT 4.27 X10E12/L Normal 3.80-5.20 [facility] Comment on above: Performed By: #### Franco CHACON, 3040-3, LIVR, BMP #### [facility] ([id number]) [address] [place] [address] 10697 WBC (Bld) [#/Vol] 8.6 10*3/uL Normal 4.0-11.0 [facility] Comment on above: Performed By: #### Franco CHACON, 3040-3, LIVR, BMP #### [facility] ([id number]) [address] [place] [address] 38446 COMPREHENSIVE METABOLIC PANE Haile 06-27-2024 Albumin [Mass/Vol] 4.4 g/dL Normal 3.2-5.3 [facility] Comment on above: Performed By: #### Franco CHACON, 3040-3, LIVR, BMP #### [facility] ([id number]) [address] [place] [address] 16053 ALP [Catalytic activity/Vol] 57 U/L Normal 39-130 [facility] Comment on above: Performed By: #### Franco CHACON, 3040-3, LIVR, BMP #### [facility] ([id number]) [address] [place] [address] 11143 ALT [Catalytic activity/Vol] 21 U/L Normal 0-31 [facility] Comment on above: Performed By: #### Franco CHACON, 3040-3, LIVR, BMP #### [facility] ([id number]) [address] [place] [address] 39111 Anion gap [Moles/Vol] 6 mmol/L Normal 5-15 [facility] Comment on above: Performed By: #### C BCA, 3040-3, LIVR, BMP #### [facility] ([id number]) [address] [place] [address] 99588 AST [Catalytic activity/Vol] 19 U/L Normal 0-41 [facility] Comment on above: Performed By: #### C BCA, 3040-3, LIVR, BMP #### [facility] ([id number]) [address] [place] [address] 31349 Bilirubin [Mass/Vol] 1.0 mg/dL Normal 0.3-1.2 [facility] Comment on above: Performed By: #### C BCA, 3040-3, LIVR, BMP #### [facility] ([id number]) [address] [place] [address] [id number] Calcium [Mass/Vol] 8.8 mg/dL Normal 8.5-10.5 [facility] Comment on above: Performed By: #### C BCA, 3040-3, LIVR, BMP #### [facility] ([id number]) [address] [place] [address] [id number] Chloride [Moles/Vol] 104 mmol/L Normal 98-109 [facility] Comment on above: Performed By: #### C BCA, 3040-3, LIVR, BMP #### [facility] ([id number]) [address] [place] [address] [id number] CO2 [Moles/Vol] 26 mmol/L Normal 22-32 [facility] Comment on above: Performed By: #### Franco BCA, 3040-3, LIVR, BMP #### [facility] ([id number]) [address] [place] [address] [phone] Creatinine [Mass/Vol] 0.84 mg/dL Normal 0.40-1.00 [facility] Comment on above: Result Comment: METH OD TRACEABLE TO IDMS STANDARD Performed By: #### C OSWALDO, 3040-3, LIVR, BMP #### [facility] ([id number]) [address] [place] [address] [id number] eGFR (CKD-EPI) NON-RACE DEPENDENT >90 Normal >59 [facility] Comment on above: Result Comment: Reported eGFR is based on the CKD-EPI 2020 equation that does not use a race coefficient. Performed By: #### C OSWALDO, 3040-3, LIVR, BMP #### [facility] ([id number]) [address] [place] [address] [id number] Glucose [Mass/Vol] 94 mg/dL Normal 65-99 [facility] Comment on above: Performed By: #### C OSWALDO, 3040-3, LIVR, BMP #### [facility] [facility] ([id number]) [address] [place] [address] 19382 Potassium [Moles/Vol] 3.7 mmol/L Normal 3.5-5.0 [facility] Comment on above: Performed By: #### C OSWALDO, 3040-3, LIVR, BMP #### [facility] ([id number]) [address] [place] [address] 87598 Protein [Mass/Vol] 7.3 g/dL Normal 6.0-8.0 [facility] Comment on above: Performed By: #### C OSWALDO, 3040-3, LIVR, BMP #### [facility] ([id number]) [address] [place] [address] 86441 Sodium [Moles/Vol] 136 mmol/L Normal 134-146 [facility] Comment on above: Performed By: #### C BCA, 3040-3, LIVR, BMP #### [facility] ([id number]) [address] [place] [address] 37465 Urea nitrogen [Mass/Vol] 14 mg/dL Normal 5-23 [facility] Comment on above: Performed By: #### C BCA, 3040-3, LIVR, BMP #### [facility] ([id number]) [address] [place] [address] BRAIN WO CONTon CT BRAIN WO CONT CT BRAIN WO CONT Noncontrast head CT, 06/27/2024 History: Headache Comparison: CT brain 06/24/2024 Technique: Multi-detector CT performed through the brain without IV contrast. Automated exposure control was utilized. Findings: There is no intracranial hemorrhage, extra-axial fluid collection, mass effect, or hydrocephalus. There is no midline shift. Basilar cisterns are patent. White-white matter differentiation is appropriate. No definite acute infarct identified. The visualized orbits, paranasal sinuses and mastoid air cells are unremarkable. Osseous structures are intact. IMPRESSION: 1. No acute intracranial process. All CT scans at this facility use dose modulation, iterative reconstruction, and/or weight based dosing when appropriate to reduce radiation dose to as low as reasonably achievable. Finalized by Parker Trinidad MD on 06/27/2024 1:27 AM Normal [facility] DRUG SCREEN, URINEon 025 AMPHETAMINE/METHAMP Positive Abnormal NEG [facility] Comment on above: Result Comment: Conf irmation available upon request. AMPH/METH screening cut off = 1000 ng/mL Performed By: #### C BCA, 3040-3, LIVR, BMP #### [facility] ([id number]) [address] [place] [address] 35505 BARBITURATES Negative Normal NEG [facility] Comment on above: Result Comment: Kasey iturates screening cut off value = 200 ng/mL Performed By: #### C BCA, 3040-3, LIVR, BMP #### [facility] ([id number]) [address] [place] [address] BENZODIAZEPINES Negative Normal NEG [facility] Comment on above: Result Comment: Kristan odiazepines screening cut off value = 200 ng/mL Performed By: #### C OSWALDO, 3040-3, LIVR, BMP #### [facility] ([id number]) [address] [place] [address] 11155 CANNABINOIDS Negative Normal NEG [facility] Comment on above: Result Comment: Joni abinoids/THC screening cut off value = 50 ng/mL Performed By: #### C OSWALDO, 3040-3, LIVR, BMP #### [facility] ([id number]) [address] [place] [address] 82603 COCAINE METABOLITE Negative Normal NEG [facility] Comment on above: Result Comment: Coca ine screening cut off value = 300 ng/mL Performed By: #### Franco CHACON, 0-3, LIVR, BMP #### [facility] ([id number]) [address] [place] [address] 98743 ECSTASY Negative Normal [facility] Comment on above: Result Comment: Ecst asy screening cut off value = 500 ng/mL This report is intended for use in clinical monitoring or management of patients. Performed By: #### Franco CHACON, 3040-3, LIVR, BMP #### [facility] ([id number]) [address] [place], [place] [address] METHADONE Negative Normal NEG [facility] Comment on above: Result Comment: Meth adone screening cut off value = 300 ng/mL. Performed By: #### Franco CHACON, 3040-3, LIVR, BMP #### [facility] ([id number]) [address] [place] [address] 10047 OPIATES Negative Normal NEG [facility] Comment on above: Result Comment: Opia kumar screening cut off value = 300 ng/mL NOTE: This test is used for the detection of codeine, hydrocodone (>1000 ng/mL), morphine and hydromorphone (>900 ng/mL) in urine. Performed By: #### C OSWALDO, 3039-3, LIVR, BMP #### [facility] ([id number]) [address] [place] [address] 94710 OXYCODONE Negative Normal NEG [facility] Comment on above: Result Comment: Oxyc odone screening cut off value = 300 ng/mL NOTE: This test is used for the detection of oxycodone and oxymorphone in urine. Performed By: #### C OSWALDO, 3039-3, LIVR, BMP #### [facility] ([id number]) [address] [place], [place] [address] PHENCYCLIDINE Negative Normal NEG [facility] Comment on above: Result Comment: Phen cyclidine screening cut off value = 25 ng/mL Performed By: #### Franco CHACON, 3039-07, LIVR, BMP #### [facility] ([id number]) [address] [place] [address] 99723 ETHANOLon 06-27-2024 Ethanol [Mass/Vol] mg/dL Normal 0.00-0.08 [facility] Comment on above: Result Comment: This report is intended for use in clinical monitoring or management of patients. Performed By: #### C OSWALDO, 3, LIVR, BMP #### [facility] ([id number]) [address] [place] [address] 42043 HCG ( test) IA.rapi d Ql (S)on 06-27-2024 SERUM Negative Normal NEG [facility] Comment on above: Performed By: #### C OSWALDO, 3039-3, LIVR, BMP #### [facility] ([id number]) [address] [place] [address] 07457 LIPASEon 06-27-2024 Lipase [Catalytic activity/Vol] 41 U/L High 17-40 [facility] Comment on above: Performed By: #### C OSWALDO, 3040-3, LIVR, BMP #### [facility] ([id number]) [address] [place] [address] Prolactin [Mass/Vol]on 06-27 PROLACTIN 10.3 ng/mL Normal 3.3-26.7 [facility] Comment on above: Performed By: #### C OSWALDO, 3040-3, LIVR, BMP #### [facility] ([id number]) [address] [place] [address] SARS/FLU A+B/RSV by NAAT/Mol ecularon 06-27-2024 SARS/FLU A+B/RSV by NAAT/Molecular FLU A PCR Negative (qualifier value) FLU B PCR Negative (qualifier value) RSV by PCR Negative (qualifier value) SARS CoV 2 Not detected (qualifier value) NOTE The Xpert Xpress SARS-CoV-2/Flu/RSV Plus test is a rapid, multiplexed real-time RT-PCR test intended for the simultaneous qualitative detection and differentiation of SARS-CoV-2, influenza A, influenza B and respiratory syncytial virus (RSV) viral RNA from individuals suspected of respiratory viral infection consistent with COVID-19 by their healthcare provider. This test has not been validated in asymptomatic patients. The Xpert Xpress SARS-CoV-2 test is intended for use by qualified and trained operators who are performing tests using either GenePostPath DX or GenePostPath Infinity systems and is limited to laboratories that [...] acute phase of infection. Positive results are indicative of the presence of the identified virus, [...] specimen repeat. Fact Sheet for Healthcare Providers: https://www.fda.gov/ media/356183/downloa d Fact Sheet for Patients: https://www.fda.gov/ media/363568/downloa d Normal [facility] Salicylates [Mass/Vol]on SALICYLATE <4.0 Normal 2.0-25.0 [facility] Comment on above: Result Comment: Refe rence ranges are for therapeutic limits. Performed By: #### C BCA, 3040-3, LIVR, BMP #### [facility] ([id number]) [address] [place] [address] 66476 URN MACROSCOPIC NURon 2024 BILIRUBIN NADYA Negative Normal NEG [facility] Comment on above: Performed By: #### C BCA, 3040-3, LIVR, BMP #### [facility] ([id number]) [address] [place] [address] 52499 BLOOD/HGB NADYA Negative Normal NEG [facility] Comment on above: Performed By: #### Franco BCA, 3040-3, LIVR, BMP #### [facility] ([id number]) [address] [place] [address] 95047 GLUCOSE NADYA Negative Normal NEG [facility] Comment on above: Performed By: #### C BCA, 3040-3, LIVR, BMP #### [facility] ([id number]) [address] [place] [address] 00501 KETONES NADYA Trace Abnormal NEG [facility] Comment on above: Performed By: #### C BCA, 3040-3, LIVR, BMP #### [facility] ([id number]) [address] [place] [address] 95379 LEUKOCYTE ESTERASE NADYA Negative Normal NEG [facility] Comment on above: Performed By: #### C BCA, 3040-3, LIVR, BMP #### [facility] ([id number]) [address] [place] [address] 82576 NITRITE NADYA Negative Normal NEG [facility] Comment on above: Performed By: #### C BCA, 3040-3, LIVR, BMP #### [facility] ([id number]) [address] [place] [address] 20914 PH NADYA 6.5 Normal 5.0-8.5 [facility] Comment on above: Performed By: #### C BCA, 3040-3, LIVR, BMP #### [facility] ([id number]) [address] [place] [address] 04814 PROTEIN NADYA Negative Normal NEG [facility] Comment on above: Performed By: #### C BCA, 3040-3, LIVR, BMP #### [facility] ([id number]) [address] [place] [address] 64733 SPECIFIC GRAVITY NADYA 1.015 Normal 1.003-1.035 [facility] Comment on above: Performed By: #### C BCA, 3040-3, LIVR, BMP #### [facility] ([id number]) [address] [place] [address] 96032 UROBILINOGEN NADYA 0.2 eu/dL Normal <1.1 [facility] Comment on above: Performed By: #### C BCA, 3040-3, LIVR, BMP #### [facility] ([id number]) [address] [place] [address] 55600 CBC AND AUTO DIFFon 06-24-19 25 ABSOLUTE BASOPHIL 0.1 X10E9/L Normal 0.0-0.2 [facility] Comment on above: Performed By: #### N UM #### [facility] ([id number]) [address] [place] [address] ABSOLUTE NEUTROPHIL 5.6 X10E9/L Normal 1.5-6.6 [facility] Comment on above: Performed By: #### N UM #### [facility] ([id number]) [address] [place] [address] Basophils/100 WBC (Bld) 0.7 % Normal [facility] Comment on above: Performed By: #### N UM #### [facility] ([id number]) [address] [place] [address] Eosinophils (Bld) [#/Vol] 0.1 10*3/uL Normal 0.0-0.4 [facility] Comment on above: Performed By: #### N UM #### [facility] ([id number]) [address] [place] [address] Eosinophils/100 WBC (Bld) 1.5 % Normal [facility] Comment on above: Performed By: #### N UM #### [facility] ([id number]) [address] [place] [address] Erythrocyte distribution width (RBC) [Ratio] 12.9 % Normal 11.5-15.0 [facility] Comment on above: Performed By: #### N UM #### [facility] ([id number]) [address] [place] [address] Hematocrit (Bld) [Volume fraction] 36.9 % Normal 35-47 [facility] Comment on above: Performed By: #### N UM #### [facility] ([id number]) [address] [place] [address] Hemoglobin (Bld) [Mass/Vol] 12.5 g/dL Normal 11.7-15.5 [facility] Comment on above: Performed By: #### N UM #### [facility] ([id number]) [address] [place] [address] Lymphocytes (Bld) [#/Vol] 3.4 10*3/uL Normal 1.0-3.5 [facility] Comment on above: Performed By: #### N UM #### [facility] ([id number]) [address] [place] [address] Lymphocytes/100 WBC (Bld) 34.3 % Normal [facility] Comment on above: Performed By: #### N UM #### [facility] ([id number]) [address] [place] [address] MCH (RBC) [Entitic mass] 30.4 pg Normal 27-34 [facility] Comment on above: Performed By: #### N UM #### [facility] ([id number]) [address] [place] [address] MCHC (RBC) [Mass/Vol] 33.7 g/dL Normal 32-36 [facility] Comment on above: Performed By: #### N UM #### [facility] ([id number]) [address] [place] [address] MCV (RBC) [Entitic vol] 90 fL Normal 80-100 [facility] Comment on above: Performed By: #### N UM #### [facility] ([id number]) [address] [place] [address] Monocytes (Bld) [#/Vol] 0.6 10*3/uL Normal 0-0.9 [facility] Comment on above: Performed By: #### N UM #### [facility] ([id number]) [address] [place] [address] Monocytes/100 WBC (Bld) 5.7 % Normal [facility] Comment on above: Performed By: #### N UM #### [facility] ([id number]) [address] [place] [address] Neutrophils/100 WBC (Bld) 57.8 % Normal [facility] Comment on above: Performed By: #### N UM #### [facility] ([id number]) [address] [place] [address] Platelet mean volume (Bld) [Entitic vol] 7.3 fL Normal 7-12 [facility] Comment on above: Performed By: #### N UM #### [facility] ([id number]) [address] [place] [address] Platelets (Bld) [#/Vol] 345 10*3/uL Normal 150-450 [facility] Comment on above: Performed By: #### N UM #### [facility] ([id number]) [address] [place] [address] RBC COUNT 4.09 X10E12/L Normal 3.80-5.20 [facility] Comment on above: Performed By: #### N UM #### [facility] ([id number]) [address] [place] [address] WBC (Bld) [#/Vol] 9.8 10*3/uL Normal 4.0-11.0 [facility] Comment on above: Performed By: #### N UM #### [facility] ([id number]) [address] [place] [address] [address] MET[address]OLIC PANE [facility] 06-24-2024 Albumin [Mass/Vol] 4.0 g/dL Normal 3.2-5.3 [facility] Comment on above: Performed By: #### N UM #### [facility] ([id number]) [address] [place] [address] ALP [Catalytic activity/Vol] 55 U/L Normal 39-130 [facility] Comment on above: Performed By: #### N UM #### [facility] ([id number]) [address] [facility] [place] [address] ALT [Catalytic activity/Vol] 15 U/L Normal 0-31 [facility] Comment on above: Performed By: #### N UM #### [facility] ([id number]) [address] [facility] [place] [address] Anion gap [Moles/Vol] 7 mmol/L Normal 5-15 [facility] Comment on above: Performed By: #### N UM #### [facility] ([id number]) [address] [place] [address] AST [Catalytic activity/Vol] 17 U/L Normal 0-41 [facility] Comment on above: Performed By: #### N UM #### [facility] ([id number]) [address] [facility] [address] Bilirubin [Mass/Vol] 0.4 mg/dL Normal 0.3-1.2 [facility] Comment on above: Performed By: #### N UM #### [facility] ([id number]) [address] [facility] [address] Calcium [Mass/Vol] 9.0 mg/dL Normal 8.5-10.5 [facility] Comment on above: Performed By: #### N UM #### [facility] ([id number]) [address] [facility] [address] Chloride [Moles/Vol] 104 mmol/L Normal 98-109 [facility] Comment on above: Performed By: #### N UM #### [facility] ([id number]) [address] [facility] [place] [place] [address] CO2 [Moles/Vol] 29 mmol/L Normal 22-32 [facility] Comment on above: Performed By: #### N UM #### [facility] ([id number]) [address] [facility] [place] [address] Creatinine [Mass/Vol] 0.88 mg/dL Normal 0.40-1.00 [facility] Comment on above: Result Comment: METH OD TRACEABLE TO IDMS STANDARD Performed By: #### N UM #### [facility] ([id number]) [address] [place] [address] eGFR (CKD-EPI) NON-RACE DEPENDENT >90 Normal >59 [facility] Comment on above: Result Comment: Reported eGFR is based on the CKD-EPI 2020 equation that does not use a race coefficient. Performed By: #### N UM #### [facility] ([id number]) [address] [place] [address] Glucose [Mass/Vol] 92 mg/dL Normal 65-99 [facility] Comment on above: Performed By: #### N UM #### [facility] ([id number]) [address] [place] [address] Potassium [Moles/Vol] 4.0 mmol/L Normal 3.5-5.0 [facility] Comment on above: Performed By: #### N UM #### [facility] ([id number]) [address] [place] [address] Protein [Mass/Vol] 6.2 g/dL Normal 6.0-8.0 [facility] Comment on above: Performed By: #### N UM #### [facility] ([id number]) [address] [place] [address] Sodium [Moles/Vol] 140 mmol/L Normal 134-146 [facility] Comment on above: Performed By: #### N UM #### [facility] ([id number]) [address] [place] [address] Urea nitrogen [Mass/Vol] 12 mg/dL Normal 5-23 [facility] Comment on above: Performed By: #### N UM #### [facility] ([id number]) [address] [place] [address] CT BRAIN WO CONTon CT BRAIN WO CONT CT BRAIN WO CONT STUDY: CT BRAIN WO CONT INDICATION: Headache, chronic, new features or increased frequency. COMPARISON: CT brain and MR brain 06/14/2024 TECHNIQUE: * CT head was performed without intravenous contrast using the standard protocol. Automated exposure control was utilized. * All CT scans at this facility use dose modulation, iterative reconstruction, and/or weight based dosing when appropriate to reduce radiation dose to as low as reasonably achievable. FINDINGS: No evidence of acute intracranial hemorrhage, territorial infarct, mass effect, midline shift, or extra-axial fluid collection. Ventricles, sulci and cistern are unremarkable. Brain volume is age appropriate. Orbits and globes appear unremarkable. Soft tissues are unremarkable. Paranasal sinuses are broadly clear. Mastoid air cells are broadly clear. No evidence of acute fracture. IMPRESSION: * No acute intracranial abnormality, by CT. Approved by Resident Cholo Rodriguez MD on 06/24/2024 1:48 AM I, Parker Trinidad MD have personally reviewed the image(s) and agree with and/or edited the report Finalized by Parker Trinidad MD on 06/24/2024 1:[address] [facility] Lactate (P gaudencio) [Moles/Vol]o n 06-24-2024 LACTATE W/REFLEX 0.4 mmol/L Normal 0.4-2.0 [facility] Comment on above: Result Comment: Result did not trigger repeat Lactate, re-order if needed. Performed By: #### N UM #### [facility] ([id number]) [address] [place] [address] BASIC METABOLIC PANLon 06-15 Anion gap [Moles/Vol] 6 mmol/L Normal 5-15 [facility] Comment on above: Performed By: #### N UM #### [facility] ([id number]) [address] [place] [address] Calcium [Mass/Vol] 8.6 mg/dL Normal 8.5-10.5 [facility] Comment on above: Performed By: #### N UM #### [facility] ([id number]) [address] [place] [address] Chloride [Moles/Vol] 105 mmol/L Normal 98-109 [facility] Comment on above: Performed By: #### N UM #### [facility] ([id number]) [address] [place] [address] CO2 [Moles/Vol] 26 mmol/L Normal 22-32 [facility] Comment on above: Performed By: #### N UM #### [facility] ([id number]) [address] [place] [address] Creatinine [Mass/Vol] 0.80 mg/dL Normal 0.40-1.00 [facility] Comment on above: Result Comment: METH OD TRACEABLE TO IDMS STANDARD Performed By: #### N UM #### [facility] ([id number]) [address] [place] [address] eGFR (CKD-EPI) NON-RACE DEPENDENT >90 Normal >59 [facility] Comment on above: Result Comment: Reported eGFR is based on the CKD-EPI 2020 equation that does not use a race coefficient. Performed By: #### N UM #### [facility] ([id number]) [address] [place] [address] Glucose [Mass/Vol] 90 mg/dL Normal 65-99 [facility] Comment on above: Performed By: #### N UM #### [facility] ([id number]) [address] [place] [address] Potassium [Moles/Vol] 4.0 mmol/L Normal 3.5-5.0 [facility] Comment on above: Performed By: #### N UM #### [facility] ([id number]) [address] [place] [address] Sodium [Moles/Vol] 137 mmol/L Normal 134-146 [facility] Comment on above: Performed By: #### N UM #### [facility] ([id number]) [address] [place] [address] Urea nitrogen [Mass/Vol] 14 mg/dL Normal 5-23 [facility] Comment on above: Performed By: #### N UM #### [facility] ([id number]) [address] [place] [address] COMPLETE BLOOD COUNTon 06-15 Erythrocyte distribution width (RBC) [Ratio] 12.8 % Normal 11.5-15.0 [facility] Comment on above: Performed By: #### N UM #### [facility] ([id number]) [address] [place] [address] Hematocrit (Bld) [Volume fraction] 36.6 % Normal 35-47 [facility] Comment on above: Performed By: #### N UM #### [facility] ([id number]) [address] [place] [address] Hemoglobin (Bld) [Mass/Vol] 12.4 g/dL Normal 11.7-15.5 [facility] Comment on above: Performed By: #### N UM #### [facility] ([id number]) [address] [place] [address] MCH (RBC) [Entitic mass] 30.5 pg Normal 27-34 [facility] Comment on above: Performed By: #### N UM #### [facility] ([id number]) [address] [place] [address] MCHC (RBC) [Mass/Vol] 34.0 g/dL Normal 32-36 [facility] Comment on above: Performed By: #### N UM #### [facility] ([id number]) [address] [place] [address] MCV (RBC) [Entitic vol] 90 fL Normal 80-100 [facility] Comment on above: Performed By: #### N UM #### [facility] ([id number]) [address] [place] [address] Platelet mean volume (Bld) [Entitic vol] 8.4 fL Normal 7-12 [facility] Comment on above: Performed By: #### N UM #### [facility] ([id number]) [address] [place] [address] Platelets (Bld) [#/Vol] 289 10*3/uL Normal 150-450 [facility] Comment on above: Performed By: #### N UM #### [facility] ([id number]) [address] [place] [address] RBC COUNT 4.08 X10E12/L Normal 3.80-5.20 [facility] Comment on above: Performed By: #### N UM #### [facility] ([id number]) [address] [place] [address] WBC (Bld) [#/Vol] 9.5 10*3/uL Normal 4.0-11.0 [facility] Comment on above: Performed By: #### N UM #### [facility] ([id number]) [address] [place] [address] MR BRAIN W WO CONTon 025 MR BRAIN W WO CONT MR BRAIN W WO CONT History: Seizure, new-onset, no history of trauma Exam/Technique: Multiplanar multisequence images of the brain obtained pre and post IV contrast injection Comparison: Head CT 06/14/2024 Findings: The ventricular system and cortical sulci are for patient's age group. There is excellent white-white matter differentiation. There is no gross focal brain parenchymal signal abnormality. There is no localized area of restricted diffusion. There are no intracranial hemorrhagic changes. Corpus callosum, cerebellopontine angle and basal cisterns are well-preserved and grossly unremarkable. Pituitary stock is midline. Following contrast injection, there is no pathological enhancement. Both temporal lobes are symmetric and grossly unremarkable. IMPRESSION: Normal study Finalized by Swati Santos MD on 06/15/2024 12:[address] [facility] ACETAMINOPHENon 06-14-2024 Acetaminophen [Mass/Vol] ug/mL Low 10.0-30.0 [facility] Comment on above: Result Comment: Refe rence ranges are for therapeutic limits. Performed By: #### C BCA, BMP, 5643-2, 4024-6, 3298-7, 43405-9 #### [facility] ([id number]) [address] [place] [address] BASIC METABOLIC PANLon 06-14 Anion gap [Moles/Vol] 8 mmol/L Normal 5-15 [facility] Comment on above: Performed By: #### C BCA, BMP, 5643-2, 4024-6, 3298-7, 90497-2 #### [facility] ([id number]) [address] [place] [address] Calcium [Mass/Vol] 9.9 mg/dL Normal 8.5-10.5 [facility] Comment on above: Performed By: #### C BCA, BMP, 5643-2, 4024-6, 3298-7, 45014-2 #### [facility] ([id number]) [address] [place] [address] Chloride [Moles/Vol] 104 mmol/L Normal 98-109 [facility] Comment on above: Performed By: #### C BCA, BMP, 5643-2, 4024-6, 3298-7, 97603-2 #### [facility] ([id number]) [address] [place] [address] CO2 [Moles/Vol] 26 mmol/L Normal 22-32 [facility] Comment on above: Performed By: #### C BCA, BMP, 5643-2, 4024-6, 3298-7, 68217-2 #### [facility] ([id number]) [address] [address] Creatinine [Mass/Vol] 0.82 mg/dL Normal 0.40-1.00 [facility] Comment on above: Result Comment: METH OD TRACEABLE TO IDMS STANDARD Performed By: #### C BCA, BMP, 5643-2, 4024-6, 3298-7, 45599-6 #### [facility] ([id number]) [address] [address] eGFR (CKD-EPI) NON-RACE DEPENDENT >90 Normal >59 [facility] Comment on above: Result Comment: Reported eGFR is based on the CKD-EPI 2020 equation that does not use a race coefficient. Performed By: #### C BCA, BMP, 5643-2, 4024-6, 3298-7, 15187-6 #### [facility] ([id number]) [address] [address] Glucose [Mass/Vol] 95 mg/dL Normal 65-99 [facility] Comment on above: Performed By: #### C BCA, BMP, 5643-2, 4024-6, 3298-7, 72814-5 #### [facility] ([id number]) [address] [address] Potassium [Moles/Vol] 4.5 mmol/L Normal 3.5-5.0 [facility] Comment on above: Performed By: #### C BCA, BMP, 5643-2, 4024-6, 3298-7, 27108-4 #### [facility] ([id number]) [address] [address] Sodium [Moles/Vol] 138 mmol/L Normal 134-146 [facility] Comment on above: Performed By: #### C BCA, BMP, 5643-2, 4024-6, 3298-7, 43797-9 #### [facility] ([id number]) [address] [place] [address] Urea nitrogen [Mass/Vol] 11 mg/dL Normal 5-23 [facility] Comment on above: Performed By: #### C BCA, BMP, 5643-2, 4024-6, 3298-7, 72228-2 #### [facility] ([id number]) [address] [place] [address] CBC AND AUTO DIFFon 06-14-19 25 ABSOLUTE BASOPHIL 0.1 X10E9/L Normal 0.0-0.2 [facility] Comment on above: Performed By: #### C BCA, BMP, 5643-2, 4024-6, 3298-7, 48217-0 #### [facility] ([id number]) [address], [facility] [address] [place] [address] ABSOLUTE NEUTROPHIL 6.0 X10E9/L Normal 1.5-6.6 [facility] Comment on above: Performed By: #### C BCA, BMP, 5643-2, 4024-6, 3298-7, 13170-6 #### [facility] ([id number]) [address], [facility] [address] [place] [address] Basophils/100 WBC (Bld) 0.8 % Normal P [facility] Comment on above: Performed By: #### C BCA, BMP, 5643-2, 4024-6, 3298-7, 01331-5 #### [facility] ([id number]) [address] [place] [address] Eosinophils (Bld) [#/Vol] 0.1 10*3/uL Normal 0.0-0.4 [facility] Comment on above: Performed By: #### C BCA, BMP, 5643-2, 4024-6, 3298-7, 89953-0 #### [facility] ([id number]) [address], [facility] [address] [place] [address] Eosinophils/100 WBC (Bld) 1.7 % Normal [facility] Comment on above: Performed By: #### C BCA, BMP, 5643-2, 4024-6, 3298-7, 53418-4 #### [facility] ([id number]) [address] [place] [address] Erythrocyte distribution width (RBC) [Ratio] 12.8 % Normal 11.5-15.0 [facility] Comment on above: Performed By: #### C BCA, BMP, 5643-2, 4024-6, 3298-7, 22814-6 #### [facility] ([id number]) [address], [facility] [address] [place] [address] Hematocrit (Bld) [Volume fraction] 41.3 % Normal 35-47 [facility] Comment on above: Performed By: #### C BCA, BMP, 5643-2, 4024-6, 3298-7, 34644-5 #### [facility] ([id number]) [address] [place] [address] Hemoglobin (Bld) [Mass/Vol] 13.8 g/dL Normal 11.7-15.5 [facility] Comment on above: Performed By: #### C BCA, BMP, 5643-2, 4024-6, 3298-7, 72327-6 #### [facility] ([id number]) [address], [facility] [address] [place] [address] Lymphocytes (Bld) [#/Vol] 1.4 10*3/uL Normal 1.0-3.5 [facility] Comment on above: Performed By: #### C BCA, BMP, 5643-2, 4024-6, 3298-7, 23500-1 #### [facility] ([id number]) [address] [address] [place] [address] Lymphocytes/100 WBC (Bld) 17.1 % Normal [facility] Comment on above: Performed By: #### C BCA, BMP, 5643-2, 4024-6, 3298-7, 49325-4 #### [facility] ([id number]) [address] [place] [address] MCH (RBC) [Entitic mass] 30.4 pg Normal 27-34 [facility] Comment on above: Performed By: #### C BCA, BMP, 5643-2, 4024-6, 3298-7, 22055-5 #### [facility] ([id number]) [address], [facility] [address] [place] [address] MCHC (RBC) [Mass/Vol] 33.4 g/dL Normal 32-36 [facility] Comment on above: Performed By: #### C BCA, BMP, 5643-2, 4024-6, 3298-7, 03038-6 #### [facility] ([id number]) [address] [place] [address] MCV (RBC) [Entitic vol] 91 fL Normal 80-100 [facility] Comment on above: Performed By: #### C BCA, BMP, 5643-2, 4024-6, 3298-7, 36200-3 #### [facility] ([id number]) [address] [address] [place] [address] Monocytes (Bld) [#/Vol] 0.4 10*3/uL Normal 0-0.9 [facility] Comment on above: Performed By: #### C BCA, BMP, 5643-2, 4024-6, 3298-7, 21118-5 #### [facility] ([id number]) [address] [address] [place] [address] Monocytes/100 WBC (Bld) 4.9 % Normal P [facility] Comment on above: Performed By: #### C BCA, BMP, 5643-2, 4024-6, 3298-7, 19634-8 #### [facility] ([id number]) [address] [place] [address] Neutrophils/100 WBC (Bld) 75.5 % Normal [facility] Comment on above: Performed By: #### C BCA, BMP, 5643-2, 4024-6, 3298-7, 99968-9 #### [facility] ([id number]) [address], [facility] [address] [place] [address] Platelet mean volume (Bld) [Entitic vol] 8.5 fL Normal 7-12 [facility] Comment on above: Performed By: #### C BCA, BMP, 5643-2, 4024-6, 329-7, 60034-9 #### [facility] ([id number]) [address], [facility] [address] [place] [address] Platelets (Bld) [#/Vol] 310 10*3/uL Normal 150-450 [facility] Comment on above: Performed By: #### C BCA, BMP, 5643-2, 4024-6, 3298-7, 59192-5 #### [facility] ([id number]) [address], [facility] [address] [place] [address] RBC COUNT 4.54 X10E12/L Normal 3.80-5.20 [facility] Comment on above: Performed By: #### C BCA, BMP, 5643-2, 4024-6, 3298-7, 03222-7 #### [facility] ([id number]) [address] [address] [place] [address] WBC (Bld) [#/Vol] 7.9 10*3/uL Normal 4.0-11.0 [facility] Comment on above: Performed By: #### C BCA, BMP, 5643-2, 4024-6, 3298-7, 17996-6 #### [facility] ([id number]) [address] [place] [address] CT BRAIN WO CONTon 5 CT BRAIN WO CONT CT BRAIN WO CONT STUDY: CT HEAD WITHOUT CONTRAST CLINICAL HISTORY: Seizure, new-onset, no history of trauma COMPARISON: None Procedure: Multi-detector CT performed through the brain without IV contrast. The lack of IV contrast limits evaluation for acute infarct, mass, infectious process,or demyelinating disease.Automated exposure control was utilized. Findings: There is no intracranial hemorrhage, extra-axial fluid collection, mass effect, or hydrocephalus. White-white matter differentiation is appropriate. Infarcts and masses may be occult on CT, but grossly no acute infarct identified There is no midline shift. IMPRESSION: * No acute intracranial findings. Consider brain MRI if you suspect occult process. All CT scans at this facility use dose modulation, iterative reconstruction, and/or weight based dosing when appropriate to reduce radiation dose to as low as reasonably achievable. Finalized by Twin Triana MD on 06/14/2024 4:[address] [facility] DRUG SCREEN, URINEon 025 AMPHETAMINE/METHAMP Positive Abnormal NEG [facility] Comment on above: Result Comment: Conf irmation available upon request. AMPH/METH screening cut off = 1000 ng/mL Performed By: #### D BALLESTEROS #### [facility] ([id number]) [address] [place] [address] BARBITURATES Negative Normal NEG [facility] Comment on above: Result Comment: Kasey iturates screening cut off value = 200 ng/mL Performed By: #### D BALLESTEROS #### [facility] ([id number]) [address] [place] [address] BENZODIAZEPINES Negative Normal NEG [facility] Comment on above: Result Comment: Kristan odiazepines screening cut off value = 200 ng/mL Performed By: #### D BALLESTEROS #### [facility] ([id number]) [address] [place] [address] CANNABINOIDS Negative Normal NEG [facility] Comment on above: Result Comment: Joni abinoids/THC screening cut off value = 50 ng/mL Performed By: #### D BALLESTEROS #### [facility] ([id number]) [address] [place] [address] COCAINE METABOLITE Negative Normal NEG [facility] Comment on above: Result Comment: Coca ine screening cut off value = 300 ng/mL Performed By: #### D BALLESTEROS #### [facility] ([id number]) [address] [place] [address] ECSTASY Negative Normal [facility] Comment on above: Result Comment: Ecst asy screening cut off value = 500 ng/mL This report is intended for use in clinical monitoring or management of patients. Performed By: #### D BALLESTEROS #### [facility] ([id number]) [address] [place] [address] METHADONE Negative Normal [facility] Comment on above: Result Comment: Meth adone screening cut off value = 300 ng/mL. Performed By: #### D BALLESTEROS #### [facility] ([id number]) [address] [place] [address] OPIATES Negative Normal [facility] Comment on above: Result Comment: Opia kumar screening cut off value = 300 ng/mL NOTE: This test is used for the detection of codeine, hydrocodone (>1000 ng/mL), morphine and hydromorphone (>900 ng/mL) in urine. Performed By: #### D BALLESTEROS #### [facility] ([id number]) [address] [place] [address] OXYCODONE Negative Normal [facility] Comment on above: Result Comment: Oxyc odone screening cut off value = 300 ng/mL NOTE: This test is used for the detection of oxycodone and oxymorphone in urine. Performed By: #### D BALLESTEROS #### [facility] ([id number]) [address] [place] [address] PHENCYCLIDINE Negative Normal NEG [facility] Comment on above: Result Comment: Phen cyclidine screening cut off value = 25 ng/mL Performed By: #### D BALLESTEROS #### [facility] ([id number]) [address], [address] [place] [address] ETHANOLon 06-14-2024 Ethanol [Mass/Vol] mg/dL Normal 0.00-0.08 [facility] Comment on above: Result Comment: This report is intended for use in clinical monitoring or management of patients. Performed By: #### C OSWALDO, BMP, 5643-2, 4024-6, 3298-7, 89215-2 #### [facility] ([id number]) [address] [place] [address] Salicylates [Mass/Vol]on SALICYLATE <2.5 Normal 2.0-25.0 [facility] Comment on above: Result Comment: Refe rence ranges are for therapeutic limits. Performed By: #### C BCA, BMP, 5643-2, 4024-6, 3298-7, 34010-2 #### [facility] ([id number]) [address] [place] [address] Tricyclic antidepressants [M ass/Vol]on 06-14-2024 TRICYCLICS Negative Normal NEG [facility] Comment on above: Performed By: #### C BCA, BMP, 5643-2, 4024-6, 3298-7, 11203-8 #### [facility] ([id number]) [address] [place] [address] URN MACROSCOPIC NURon 2024 BILIRUBIN NADYA Negative Normal NEG [facility] Comment on above: Performed By: #### N UM #### [facility] ([id number]) [address] [place] [address] BLOOD/HGB NADYA Negative Normal NEG [facility] Comment on above: Performed By: #### N UM #### [facility] ([id number]) [address] [facility] [place] [address] GLUCOSE NADYA Negative Normal NEG [facility] Comment on above: Performed By: #### N UM #### [facility] ([id number]) [address] [facility] [place] [place] [address] KETONES NADYA Negative Normal NEG [facility] Comment on above: Performed By: #### N UM #### [facility] ([id number]) [address] [facility] [place] [address] LEUKOCYTE ESTERASE NADYA Negative Normal NEG [facility] Comment on above: Performed By: #### N UM #### [facility] ([id number]) [address] [facility] [place] [address] NITRITE NADYA Negative Normal NEG [facility] Comment on above: Performed By: #### N UM #### [facility] ([id number]) [address] [facility] [place] [address] PH NADYA 8.0 Normal 5.0-8.5 [facility] Comment on above: Performed By: #### N UM #### [facility] ([id number]) [address] [facility] [place] [address] PROTEIN NADYA Negative Normal NEG [facility] Comment on above: Performed By: #### N UM #### [facility] ([id number]) [address] [facility] [place] [address] SPECIFIC GRAVITY NADYA 1.020 Normal 1.003-1.035 [facility] Comment on above: Performed By: #### N UM #### [facility] ([id number]) [address] [place] [address] UROBILINOGEN NADYA 0.2 eu/dL Normal <1.1 [facility] Comment on above: Performed By: #### N UM #### [facility] ([id number]) [address] [place] [place] [address] CBC AND AUTO DIFFon 06-06-19 25 ABSOLUTE BASOPHIL 0.1 X10E9/L Normal 0.0-0.2 [facility] Comment on above: Performed By: #### Franco CHACON, 68844-8, 34707-2, CMP #### [facility] ([id number]) [address] [place] [address] ABSOLUTE NEUTROPHIL 5.8 X10E9/L Normal 1.5-6.6 [facility] Comment on above: Performed By: #### Franco CHACON, 68726-4, 96711-6, CMP #### [facility] ([id number]) [address] [place] [address] Basophils/100 WBC (Bld) 0.9 % Normal [facility] Comment on above: Performed By: #### Franco CHACON, 15078-3, 11320-7, CMP #### [facility] ([id number]) [address] [place] [address] Eosinophils (Bld) [#/Vol] 0.1 10*3/uL Normal 0.0-0.4 [facility] Comment on above: Performed By: #### Franco CHACON, 37345-2, 89351-3, CMP #### [facility] ([id number]) [address] [place] [address] Eosinophils/100 WBC (Bld) 1.4 % Normal [facility] Comment on above: Performed By: #### Franco CHACON, 27551-2, 45591-3, CMP #### [facility] ([id number]) [address] [place] [address] Erythrocyte distribution width (RBC) [Ratio] 12.7 % Normal 11.5-15.0 [facility] Comment on above: Performed By: #### Franco CHACON, 07309-3, 95555-2, CMP #### [facility] ([id number]) [address] [place] [address] Hematocrit (Bld) [Volume fraction] 36.9 % Normal 35-47 [facility] Comment on above: Performed By: #### Franco CHACON, 98444-8, 09487-9, CMP #### [facility] ([id number]) [address] [place] [address] Hemoglobin (Bld) [Mass/Vol] 12.8 g/dL Normal 11.7-15.5 [facility] Comment on above: Performed By: #### Franco CHACON, 86518-6, 98088-9, CMP #### [facility] ([id number]) [address] [place] [address] Lymphocytes (Bld) [#/Vol] 3.6 10*3/uL High 1.0-3.5 [facility] Comment on above: Performed By: #### Franco CHACON, 36194-3, 80431-3, CMP #### [facility] ([id number]) [address] [place] [address] Lymphocytes/100 WBC (Bld) 34.7 % Normal [facility] Comment on above: Performed By: #### Franco CHACON, 70917-2, 13523-1, CMP #### [facility] ([id number]) [address] [place] [address] MCH (RBC) [Entitic mass] 31.0 pg Normal 27-34 [facility] Comment on above: Performed By: #### Franco CHACON, 14937-5, 11901-9, CMP #### [facility] ([id number]) [address] [place] [address] MCHC (RBC) [Mass/Vol] 34.7 g/dL Normal 32-36 [facility] Comment on above: Performed By: #### Franco CHACON, 27876-5, 00154-2, CMP #### [facility] ([id number]) [address] [place] [address] MCV (RBC) [Entitic vol] 90 fL Normal 80-100 [facility] Comment on above: Performed By: #### Franco CHACON, 31501-7, 51486-9, CMP #### [facility] ([id number]) [address] [place] [address] Monocytes (Bld) [#/Vol] 0.7 10*3/uL Normal 0-0.9 [facility] Comment on above: Performed By: #### Franco CHACON, 79551-9, 27558-6, CMP #### [facility] ([id number]) [address] [place] [address] Monocytes/100 WBC (Bld) 7.0 % Normal [facility] Comment on above: Performed By: #### Franco CHACON, 80749-8, 53783-9, CMP #### [facility] ([id number]) [address] [place] [address] Neutrophils/100 WBC (Bld) 56.0 % Normal [facility] Comment on above: Performed By: #### Franco CHACON, 89185-6, 09401-9, CMP #### [facility] ([id number]) [address] [place] [address] Platelet mean volume (Bld) [Entitic vol] 8.4 fL Normal 7-12 [facility] Comment on above: Performed By: #### Franco CHACON, 38683-4, 31286-9, CMP #### [facility] ([id number]) [address] [place] [address] Platelets (Bld) [#/Vol] 350 10*3/uL Normal 150-450 [facility] Comment on above: Performed By: #### C OSWALDO, 18834-4, 39493-9, CMP #### [facility] ([id number]) [address] [place] [address] RBC COUNT 4.12 X10E12/L Normal 3.80-5.20 [facility] Comment on above: Performed By: #### C OSWALDO, 82405-3, 25825-2, CMP #### [facility] ([id number]) [address] [place] [address] WBC (Bld) [#/Vol] 10.3 10*3/uL Normal 4.0-11.0 [facility] Comment on above: Performed By: #### C OSWALDO, 87094-0, 81541-3, CMP #### [facility] ([id number]) [address] [place] [address] COMPREHENSIVE METABOLIC PANE Haile 06-06-2024 Albumin [Mass/Vol] 4.3 g/dL Normal 3.2-5.3 [facility] Comment on above: Performed By: #### C OSWALDO, 13430-8, 90416-3, CMP #### [facility] ([id number]) [address] [place] [address] ALP [Catalytic activity/Vol] 53 U/L Normal 39-130 [facility] Comment on above: Performed By: #### C OSWALDO, 26300-6, 17667-5, CMP #### [facility] ([id number]) [address] [place] [address] ALT [Catalytic activity/Vol] 12 U/L Normal 0-31 [facility] Comment on above: Performed By: #### C OSWALDO, 63585-6, 00147-9, CMP #### [facility] ([id number]) [address] [place] [address] Anion gap [Moles/Vol] 6 mmol/L Normal 5-15 [facility] Comment on above: Performed By: #### C OSWALDO, 14417-0, 19206-9, CMP #### [facility] ([id number]) [address] [place] [address] AST [Catalytic activity/Vol] 16 U/L Normal 0-41 [facility] Comment on above: Performed By: #### C OSWALDO, 64361-8, 50153-0, CMP #### [facility] ([id number]) [address] [place] [address] 65876 Bilirubin [Mass/Vol] 0.9 mg/dL Normal 0.3-1.2 [facility] Comment on above: Performed By: #### C OSWALDO, 95764-6, 87529-9, CMP #### [facility] ([id number]) [address] [place] [address] 19188 Calcium [Mass/Vol] 8.9 mg/dL Normal 8.5-10.5 [facility] Comment on above: Performed By: #### C OSWALDO, 66823-2, 65188-1, CMP #### [facility] ([id number]) [address] [place] [address] 68776 Chloride [Moles/Vol] 102 mmol/L Normal 98-109 [facility] Comment on above: Performed By: #### C OSWALDO, 11097-9, 97040-0, CMP #### [facility] ([id number]) [address] [place] [address] 41223 CO2 [Moles/Vol] 27 mmol/L Normal 22-32 [facility] Comment on above: Performed By: #### C OSWALDO, 96970-8, 69653-1, CMP #### [facility] ([id number]) [address] [place] [address] 00960 Creatinine [Mass/Vol] 0.77 mg/dL Normal 0.40-1.00 [facility] Comment on above: Result Comment: METH OD TRACEABLE TO IDMS STANDARD Performed By: #### C OSWALDO, 98638-9, 10601-7, CMP #### [facility] ([id number]) [address] [place] [address] 76405 eGFR (CKD-EPI) NON-RACE DEPENDENT >90 Normal >59 [facility] Comment on above: Result Comment: Reported eGFR is based on the CKD-EPI 1 equation that does not use a race coefficient. Performed By: #### C OSWALDO, 98634-3, 59931-0, CMP #### [facility] ([id number]) [address] [place] [address] 43139 Glucose [Mass/Vol] 98 mg/dL Normal 65-99 [facility] Comment on above: Performed By: #### C OSWALDO, 76465-0, 73427-5, CMP #### [facility] ([id number]) [address] [place] [address] 87538 Potassium [Moles/Vol] 3.5 mmol/L Normal 3.5-5.0 [facility] Comment on above: Performed By: #### C OSWALDO, 36113-5, 65524-9, CMP #### [facility] ([id number]) [address] [place] [address] Protein [Mass/Vol] 6.9 g/dL Normal 6.0-8.0 [facility] Comment on above: Performed By: #### C OSWALDO, 95984-4, 80936-2, CMP #### [facility] ([id number]) [address] [place] [address]604 Sodium [Moles/Vol] 135 mmol/L Normal 134-146 [facility] Comment on above: Performed By: #### C OSWALDO, 29787-6, 95461-3, CMP #### [facility] ([id number]) [address] [place] [address]491 Urea nitrogen [Mass/Vol] 12 mg/dL Normal 5-23 [facility] Comment on above: Performed By: #### C OSWALDO, 46166-1, 99041-0, CMP #### [facility] ([id number]) [address] [place] [address]792 Fibrin D-dimer DDU (PPP) [Ma ss/Vol]on 06-06-2024 D DIMER <150 Normal <255 [facility] Comment on above: Result Comment: Results <255 ng/mL DDU: The presence of a VTE can safely be excluded with a negative D-Dimer result and Wells score. A negative result doesn't exclude the possibility of DIC. The test be repeated along with other diagnostic tests if the patient's symptoms persist or worsen. [email or web address] Performed By: #### C OSWALDO, 67229-9, 47174-8, CMP #### [facility] ([id number]) [address] [place] [address]391 Troponin I.cardiac High sens itivity method [Mass/Vol]on 06-06-2024 TROPONIN I, HIGH SENSITIVITY <2 Normal <16 [facility] Comment on above: Performed By: #### Franco CHACON, 3040-3, LIVR, BMP #### [facility] ([id number]) [address] [place] [address] 48100 CBC with Auto Differentialon 06-05-2024 Basophils (Bld) [#/Vol] 0.08 10*3/uL Bon [facility] Basophils/100 WBC (Bld) 1 % 0 - 2 % [place] Eosinophils (Bld) [#/Vol] 0.16 10*3/uL Bon [facility] Eosinophils/100 WBC (Bld) 1 % 1 - 4 % Bon [facility] Erythrocyte distribution width (RBC) [Ratio] 12.0 % 11.8 - 14.4 % [facility] Hematocrit (Bld) [Volume fraction] 43.7 % 36.3 - 47.1 % [facility] Hemoglobin (Bld) [Mass/Vol] 14.8 g/dL 11.9 - 15.1 g/dL [facility] Immature granulocytes (Bld) [#/Vol] 0.04 10*3/uL [facility] Immature granulocytes/100 WBC (Bld) 0 % 0 [facility] Interpretation and review of laboratory results Abnormal [facility] Lymphocytes/100 WBC (Bld) 25 % 24 - 43 % [facility] Lymphocytes/100 WBC (Bld) 3.02 % [facility] MCH (RBC) [Entitic mass] 30.1 pg 25.2 - 33.5 pg [facility] MCHC (RBC) [Mass/Vol] 33.9 g/dL 28.4 - 34.8 g/dL [facility] MCV (RBC) [Entitic vol] 89.0 fL 82.6 - 102.9 fL [facility] Monocytes/100 WBC (Bld) 5 % 3 - 12 % B on [facility] Monocytes/100 WBC (Bld) 0.60 % B on [facility] Neutrophils/100 WBC (Bld) 68 % High 36 - 65 % [facility] Nucleated RBC/100 WBC (Bld) [Ratio] 0.0 % 0.0 per 100 WBC [facility] Platelet mean volume (Bld) [Entitic vol] 10.0 fL 8.1 - 13.5 fL [facility] Platelets (Bld) [#/Vol] 373 10*3/uL [facility] RBC (Bld) [#/Vol] 4.91 10*6/uL 3.95 - 5.1 1 m/uL [facility] Segmented neutrophils/100 WBC (Bld) 8.18 % High [facility] WBC other (Bld) [#/Vol] 12.1 High B on [facility] CBC with Diffon 06-05-2024 Abs. Basophil 0.08 k/uL Normal 0.00-0.[address] [facility] Comment on above: Performed By: #### C DP, HCG, CP #### [address] [place] [address] Process Engineering Technician: Cholo Alicea MD Abs.Imm.Granulocyte 0.04 k/uL Normal 0.00-0.30 [facility] Comment on above: Performed By: #### C DP, HCG, CP #### [address] [place], [place] [address] Process Engineering Technician: Cholo Alicea MD Abs.Neutrophil (Seg) 8.18 k/uL High 1.50-8.10 [facility] Comment on above: Performed By: #### C DP, HCG, CP #### [address] [place] [id number] Process Engineering Technician: Cholo Alicea MD Basophils/100 WBC (Bld) 1 % Normal 0-2 [facility] Comment on above: Performed By: #### C DP, HCG, CP #### [address] [place], [place] [address] Process Engineering Technician: Cholo Alicea MD Eosinophils (Bld) [#/Vol] 0.16 10*3/uL Normal 0.00-0.44 [facility] Comment on above: Performed By: #### C DP, HCG, CP #### [address] [place], [facility] Process Engineering Technician: Cholo Alicea MD Eosinophils/100 WBC (Bld) 1 % Normal 1-4 [facility] Comment on above: Performed By: #### C DP, HCG, CP #### [address] [place] [address] Process Engineering Technician: Cholo Alicea MD Erythrocyte distribution width (RBC) [Ratio] 12.0 % Normal 11.8-14.4 [facility] Comment on above: Performed By: #### C DP, HCG, CP #### [facility] [address] [place], [place] [address] Process Engineering Technician: Cholo Alicea MD Hematocrit (Bld) [Volume fraction] 43.7 % Normal 36.3-47.1 [facility] Comment on above: Performed By: #### C DP, HCG, CP #### [facility] [address] [place], [place] [address] Process Engineering Technician: Cholo Alicea MD Hemoglobin (Bld) [Mass/Vol] 14.8 g/dL Normal 11.9-15.1 [facility] Comment on above: Performed By: #### C DP, HCG, CP #### [address] [place], [place] [address] Process Engineering Technician: Cholo Alicea MD Immature granulocytes/100 WBC (Bld) 0 % Normal 0 [facility] Comment on above: Performed By: #### C DP, HCG, CP #### [address] [place], [facility] Process Engineering Technician: Cholo Alicea MD Lymphocytes (Bld) [#/Vol] 3.02 10*3/uL Normal 1.10-3.70 [facility] Comment on above: Performed By: #### C DP, HCG, CP #### [facility] [address] [place] [address] [place], [place] [address] Process Engineering Technician: Cholo Alicea MD Lymphocytes/100 WBC (Bld) 25 % Normal 24-43 [facility] Comment on above: Performed By: #### C DP, HCG, CP #### [facility] [address] [place], [facility] Process Engineering Technician: Cholo Alicea MD MCH (RBC) [Entitic mass] 30.1 pg Normal 25.2-33.5 [facility] Comment on above: Performed By: #### C DP, HCG, CP #### [facility] [address] [place] [address] Process Engineering Technician: Cholo Alicea MD MCHC (RBC) [Mass/Vol] 33.9 g/dL Normal 28.4-34.8 [facility] Comment on above: Performed By: #### C DP, HCG, CP #### [address] [place], [place] [address] Process Engineering Technician: Cholo Alicea MD MCV (RBC) [Entitic vol] 89.0 fL Normal 82.6-102.9 [facility] Comment on above: Performed By: #### C DP, HCG, CP #### [address] [place] [address] Process Engineering Technician: Cholo Alicea MD Monocytes (Bld) [#/Vol] 0.60 10*3/uL Normal 0.10-1.20 [facility] Comment on above: Performed By: #### C DP, HCG, CP #### [address] [place] [address] Process Engineering Technician: Cholo Alicea MD Monocytes/100 WBC (Bld) 5 % Normal 3-12 [facility] Comment on above: Performed By: #### C DP, HCG, CP #### [address] [place], [place] [address] Process Engineering Technician: Cholo Alicea MD Neutrophil (Seg) 68 % High 36-65 [facility] Comment on above: Performed By: #### C DP, HCG, CP #### [address] [place] [address] Process Engineering Technician: Cholo Alicea MD NRBC Automated 0.0 per 100 WBC Normal 0.0 [facility] Comment on above: Performed By: #### C DP, HCG, CP #### [address] [place] [address] Process Engineering Technician: Cholo Alicea MD Platelet mean volume (Bld) [Entitic vol] 10.0 fL Normal 8.1-13.5 [facility] Comment on above: Performed By: #### C DP, HCG, CP #### [facility] [address] [place] [id number] Process Engineering Technician: Cholo Alicea MD Platelets (Bld) [#/Vol] 373 10*3/uL Normal 138-453 [facility] Comment on above: Performed By: #### C DP, HCG, CP #### [facility] [address] [place] [address] Process Engineering Technician: Cholo Alicea MD RBC (Bld) [#/Vol] 4.91 10*6/uL Normal 3.95-5.11 [facility] Comment on above: Performed By: #### C DP, HCG, CP #### [address] [place], [place] [address] Process Engineering Technician: Cholo Alicea MD WBC (Bld) [#/Vol] 12.1 10*3/uL High 3.5-11.3 [facility] Comment on above: Performed By: #### C DP, HCG, CP #### [address] [place], [place] [address] Process Engineering Technician: Cholo Alicea MD Comp Metabolic Profon 2024 Albumin [Mass/Vol] 4.7 g/dL Normal 3.5-5.2 [facility] Comment on above: Performed By: #### C DP, HCG, CP #### [address] [place] [address] Process Engineering Technician: Cholo Alicea MD Albumin/Glob Ratio 1.6 Normal 1.0-2.5 [facility] Comment on above: Performed By: #### C DP, HCG, CP #### [address] [place] [id number] Process Engineering Technician: Cholo Alicea MD Alkaline Phos 76 U/L Normal 35-[address] [facility] Comment on above: Performed By: #### C DP, HCG, CP #### [facility] [address] [place], [place] 1838383 Process Engineering Technician: Cholo Alicea MD ALT [Catalytic activity/Vol] 8 U/L Low 10-35 [facility] Comment on above: Performed By: #### C DP, HCG, CP #### [facility] [address] [place] [id number] Process Engineering Technician: Cholo Alicea MD Anion gap [Moles/Vol] 11 mmol/L Normal 9-16 [facility] Comment on above: Performed By: #### C DP, HCG, CP #### [facility] [address] [place], [place] 1450083 Process Engineering Technician: Cholo Alicea MD AST [Catalytic activity/Vol] 20 U/L Normal 10-35 [facility] Comment on above: Result Comment: Spec imen hemolysis has exceeded the interference as defined by Lupe. Value may be falsely increased. Suggest recollection if clinically indicated. Performed By: #### C DP, HCG, CP #### [facility] [address] [place], [place] [id number] Process Engineering Technician: Cholo Alicea MD Bilirubin [Mass/Vol] 0.2 mg/dL Normal 0.00-1.20 [facility] Comment on above: Performed By: #### C DP, HCG, CP #### [facility] [address] [place] [address] Process Engineering Technician: Cholo Alicea MD BUN/CRE Ratio 14 Normal 9-[address] [facility] Comment on above: Performed By: #### C DP, HCG, CP #### [facility] [address] [place], [place] 0554[address] Process Engineering Technician: Cholo Alicea MD Calcium [Mass/Vol] 9.2 mg/dL Normal 8.6-10.4 [facility] Comment on above: Performed By: #### C DP, HCG, CP #### [facility] [address] [place], [place] 5894[address] Process Engineering Technician: Cholo Alicea MD Chloride [Moles/Vol] 103 mmol/L Normal 98-107 [facility] Comment on above: Performed By: #### C DP, HCG, CP #### [facility] [address] [place] 0400583 Process Engineering Technician: Cholo Alicea MD CO2 [Moles/Vol] 24 mmol/L Normal 20-31 [facility] Comment on above: Performed By: #### C DP, HCG, CP #### [facility] [address] [place] [address] Process Engineering Technician: Cholo Alicea MD Creatinine [Mass/Vol] 0.8 mg/dL Normal 0.50-0.90 [facility] Comment on above: Performed By: #### C DP, HCG, CP #### [facility] [address] [place] [address] Process Engineering Technician: Cholo Alicea MD GFR/1.73 sq M.predicted among non-blacks MDRD (S/P/Bld) [Vol rate/Area] mL/min/{1.73_m2} Normal >60 [facility] Comment on above: Result Comment: These results [...] tubular secretion. Performed By: #### C DP, HCG, CP #### [facility] [address] [place] [address] Process Engineering Technician: Cholo Alicea MD Glucose [Mass/Vol] 91 mg/dL Normal 74-99 [facility] Comment on above: Performed By: #### C DP, HCG, CP #### [facility] [address] [place] [address] Process Engineering Technician: Cholo Alicea MD Potassium [Moles/Vol] 4.1 mmol/L Normal 3.7-5.3 [facility] Comment on above: Result Comment: Spec imen hemolysis has exceeded the interference as defined by Lupe. Value may be falsely increased. Suggest recollection if clinically indicated. Performed By: #### C DP, HCG, CP #### [facility] [address] [place] [address] Process Engineering Technician: Cholo Alicea MD Protein [Mass/Vol] 7.6 g/dL Normal 6.6-8.7 [facility] Comment on above: Performed By: #### C DP, HCG, CP #### [facility] [address] [place] [address] Process Engineering Technician: Cholo Alicea MD Sodium [Moles/Vol] 138 mmol/L Normal 136-145 [facility] Comment on above: Performed By: #### C DP, HCG, CP #### [facility] [address] [place] [address] Process Engineering Technician: Cholo Alicea MD Urea nitrogen [Mass/Vol] 11 mg/dL Normal 6-20 [facility] Comment on above: Performed By: #### C DP, HCG, CP #### [facility] [address] [place] [address] Process Engineering Technician: Cholo Alicea MD Comprehensive Metabolic Pane haile 06-05-2024 Albumin [Mass/Vol] 4.7 g/dL 3.5 - 5.2 g/dL [facility] Albumin/Globulin [Mass ratio] 1.6 {ratio} 1.0 - 2.5 [facility] ALP [Catalytic activity/Vol] 76 U/L 35 - 104 U/L [facility] ALT [Catalytic activity/Vol] 8 U/L Low 10 - 35 U/L [facility] Anion gap [Moles/Vol] 11 mmol/L 9 - 16 mmol/L [facility] AST [Catalytic activity/Vol] 20 U/L 10 - 35 U/L [facility] Comment on above: Specimen hemolysis h as exceeded the interference as defined by Lupe. Value may be falsely increased. Suggest recollection if clinically indicated. Bilirubin [Mass/Vol] 0.2 mg/dL 0.00 - 1.20 mg/dL [facility] Calcium [Mass/Vol] 9.2 mg/dL 8.6 - 10. 4 mg/dL [facility] Chloride [Moles/Vol] 103 mmol/L 98 - 10 7 mmol/L [facility] CO2 [Moles/Vol] 24 mmol/L 20 - 31 mmol/L [facility] Creatinine [Mass/Vol] 0.8 mg/dL 0.50 - 0.90 mg/dL [facility] Est, Glom Filt Rate - PINF [facility] Comment on above: These results are not [...] that affects renal tubular secretion. Glucose [Mass/Vol] 91 mg/dL 74 - 99 mg/dL [facility] Interpretation and review of laboratory results Abnormal [facility] Potassium [Moles/Vol] 4.1 mmol/L 3.7 - 5.3 mmol/L [facility] Comment on above: Specimen hemolysis h as exceeded the interference as defined by Lupe. Value may be falsely increased. Suggest recollection if clinically indicated. Protein [Mass/Vol] 7.6 g/dL 6.6 - 8.7 g/dL [facility] Sodium [Moles/Vol] 138 mmol/L 136 - 145 mmol/L [facility] Urea nitrogen [Mass/Vol] 11 mg/dL 6 - 20 mg/dL [facility] Urea nitrogen/Creatinine [Mass ratio] 14 mg/mg 9 - 20 [facility] HCG Qualitative, Serumon HCG ( test) Ql Negative NEGATIVE B on [facility] Comment on above: Specimens with hCG l evels near the threshold of the test (25 mIU/mL) may give a negative or indeterminate result. In such cases, another test should be performed with a new specimen in 48-72 hours. If early is suspected clinically in this setting, correlation with quantitative serum b-hCG level is suggested. [facility] has confirmed the use of plasma for this test. This has not been cleared or approved by the U.S. Food and Drug Administration. The FDA has determined that such clearance is not necessary. [facility] HCG Screen, Bloodon 06-05-19 25 HCG Screen, Blood Negative Normal NEG [facility] Comment on above: Result Comment: Spec imens with hCG levels near the threshold of the test (25 mIU/mL) may give a negative or indeterminate result. In such cases, another test should be performed with a new specimen in 48-72 hours. If early is suspected clinically in this setting, correlation with quantitative serum b-hCG level is suggested. [facility] confirmed the use of plasma for this test. This has not been cleared or approved by the U.S. Food and Drug Administration. The FDA has determined that such clearance is not necessary. Performed By: #### C DP, HCG, CP #### [facility] [address] [place] [address] Process Engineering Technician: Cholo Alicea MD Lithiumon 06-05-2024 [place] [Moles/Vol] 0.9 mmol/L Normal 0.6-1.2 [facility] Comment on above: Performed By: #### L IC #### [facility] [address] [place] [address] Process Engineering Technician: Omar Segundo MD Portable XR Chest AP single viewon 06-05-2024 No acute process. [facility] RIS CONSOLIDATED EXAMINATION: ONE XRAY VIEW OF THE CHEST 06/05/2024 7:02 pm COMPARISON: 01/07/2024 HISTORY: ORDERING SYSTEM PROVIDED HISTORY: bruising to chest TECHNOLOGIST PROVIDED HISTORY: bruising to chest FINDINGS: The lungs are without acute focal process. There is no effusion or pneumothorax. The cardiomediastinal silhouette is stable. The osseous structures are stable. [facility] RIS CONSOLIDATED Niles Elliott MD - 06/05/2024 EXAMINATION: ONE XRAY VIEW OF THE CHEST 06/05/2024 7:02 pm COMPARISON: 01/07/2024 HISTORY: ORDERING SYSTEM PROVIDED HISTORY: bruising to chest TECHNOLOGIST PROVIDED HISTORY: bruising to chest FINDINGS: The lungs are without acute focal process. There is no effusion or pneumothorax. The cardiomediastinal silhouette is stable. The osseous structures are stable. IMPRESSION: No acute process. [facility] Radiology Study observation (narrative) [facility] Portable XR Chest AP single viewOrdered By: Niles Elliott on 06-05-2024 [facility] Work Phone: XR CHEST PORTABLEon 06-05-19 XR CHEST PORTABLE EXAMINATION: ONE XRAY VIEW OF THE CHEST 06/05/2024 7:02 pm COMPARISON: 01/07/2024 HISTORY: ORDERING SYSTEM PROVIDED HISTORY: bruising to chest TECHNOLOGIST PROVIDED HISTORY: bruising to chest FINDINGS: The lungs are without acute focal process. There is no effusion or pneumothorax. The cardiomediastinal silhouette is stable. The osseous structures are stable. IMPRESSION: No acute process. Interpreted by: Niles Elliott MD Signed by: Niles Elliott MD 06/05/24 Final result Normal [facility] SARS/FLU A+B/RSV by NAAT/Mol [facility] 04-21-2024 SARS/FLU A+B/RSV by NAAT/Molecular FLU A PCR Negative (qualifier value) FLU B PCR Negative (qualifier value) RSV by PCR Negative (qualifier value) SARS CoV 2 Not detected (qualifier value) NOTE The Xpert Xpress SARS-CoV-2/Flu/RSV Plus test is a rapid, multiplexed real-time RT-PCR test intended for the simultaneous qualitative detection and differentiation of SARS-CoV-2, influenza A, influenza B and respiratory syncytial virus (RSV) viral RNA from individuals suspected of respiratory viral infection consistent with COVID-19 by their healthcare provider. This test has not been validated in asymptomatic patients. The Xpert Xpress SARS-CoV-2 test is intended for use by qualified and trained operators who are performing tests using either [employer] DX or [employer] systems and is limited to laboratories that [...] acute phase of infection. Positive results are indicative of the presence of the identified virus, [...] specimen repeat. Fact Sheet for Healthcare Providers: https://www.fda.gov/ media/984957/downloa d Fact Sheet for Patients: https://www.fda.gov/ media/070667/downloa d Normal [facility] Comment on above: Performed By: #### C OVFLR #### [facility] ([id number]) [address] [place] [address] ALL CBC WITH AUTO DIFFon BASOPHILS ABSOLUTE AUTO 0.0 [facility] Basophils/100 WBC (Bld) 0.3 % 0.2 - 2.0 % [facility] Eosinophils/100 WBC (Bld) 0.1 % Low 0.9 - 7.0 % [facility] Erythrocyte distribution width (RBC) [Ratio] 12.2 % 11.0 - 15.0 % [facility] Hematocrit (Bld) [Volume fraction] 35.7 % Low 36.0 - 48.0 % [facility] Hemoglobin (Bld) [Mass/Vol] 12.0 g/dL 12.0 - 16.0 g/dL [facility] IMMATURE GRANULOCYTES ABS AUTO 0.[address] [facility] Immature granulocytes/100 WBC (Bld) 0.3 % 0.0 - 0.5 % [facility] Interpretation and review of laboratory results Abnormal [facility] LYMPHOCYTES ABSOLUTE AUTO 1.[address] [facility] Lymphocytes/100 WBC (Bld) 11.4 % Low 20.5 - 60.0 % [facility] MCH (RBC) [Entitic mass] 30.2 pg 26.7 - 34.[address] [facility] MCHC (RBC) [Mass/Vol] 33.6 g/dL 29.9 - 35.2 g/dL [facility] MCV (RBC) [Entitic vol] 89.9 fL 81.0 - 99.[address] [facility] MONOCYTES ABSOLUTE AUTO 1.[address] [facility] Monocytes/100 WBC (Bld) 7.9 % 1.7 - 12.0 % [facility] NEUTROPHILS ABSOLUTE AUTO 11.[address] [facility] Neutrophils/100 WBC (Bld) 80.0 % High 43.0 - 75.0 % [facility] Platelet mean volume (Bld) [Entitic vol] 11.0 fL 9.5 - 13.[address] [facility] EO # 0.[address] [facility] PLT [address] [facility] TB RBC 3.[address] [facility] WBC 14.[address] [facility] Haile 02-15-2024 L Specimen: [id number] Received: 02/16/24 Status: RUDY Bassett Num: [id number] Spec Type: Surgical Subm Dr: Ron Valenzuela Tissues: A Uterus w/ or w/o tubes ovaries except neoplastic or prolap (UTERUS,CERVIX, Procedures: HE/8, Gross/Micro L5 Age/ Patient Sex Location Account Attending Physician Cari Gaitan 28/F [facility] [id number] Ron Valenzuela SPEC NUM: [id number] RECD: 02/16/24 STATUS: RUDY BASSETT NUM: [id number] PHILIP: 02/15/24-[address]: Ron Valenzuela ENTERED: 02/16/24-1500 [facility] DR: Dorothea Arroyo SPEC TYPE: Surgical DEPT: GIORGIO KINCAID ENTERED BY: [id number] REC BY: [id number] ORDERED: HE/8, Gross/Micro L5 ORDERED: HE8, Gross/Micro L5 Pathological Diagnosis Uterus, cervix, bilateral fallopian tubes, total hysterectomy with bilateral salpingectomy: -Cervix with mild mucosal denudation at upper canal to lower uterine segment without cervicitis or dysplasia -Corpus with patchy marked decidual stromal change in the upper mucosa, and the occasional residual endometrial glands of the inactive to rarely secretory type, without hyperplasia or atypia identified -Incidental small foci of mucosal denudation of the uterine mucosa with associated hemorrhage and congestion -Intact bilateral fimbriated fallopian tubes without significant histopathological findings Clinical Information Menorrhagia, pelvic pain, dyspareunia, dysmenorrhea, endometriosis Gross Description The specimen is received in formalin with the patient's name and uterus, cervix, bilateral fallopian tubes and consists of a 75.7 g uterus, cervix, and 2 unattached fimbriated fallopian tubes. The uterus and cervix measure 7.3 cm from superior to inferior 3.6 cm from anterior to posterior, and 5.3 cm from cornu to cornu. The serosal surface is weiss-pink smooth. The cervix measures 3.0 cm in length with a diameter of 2.9 cm. The cervical mucosa is weiss-white, and smooth. The external os measures 1.1 cm in diameter. The specimen is bivalved revealing a endocervical canal measuring 4.0 cm in length. The endometrial Specimen: [id number] Received: 02/16/24 Status: RUDY Danyelle Num: [id number] Spec Type: Surgical Subm Dr: Ron Valenzuela Tissues: A Uterus w/ or w/o tubes ovaries except neoplastic or prolap (UTERUS,CERVIX, Procedures: , Gross/Micro L5 Patient: Cari Gaitan Maury [id number] (Continued) Specimen: [id number] Received: 02/16/24 (Continued) Gross Description (Continued) Signed (signature on file) Reji Caldera MD 02/21/24 1347 Specimen: [id number] Received: 02/16/24 Status: RUDY Bassett Num: [id number] Spec Type: Surgical Subm Dr: Ron Valenzuela Tissues: A Uterus w/ or w/o tubes ovaries except neoplastic or prolap (UTERUS,CERVIX, Procedures: , Gross/Micro L5 Patient: Cari Gaitan [id number] (Continued) Specimen: [id number] Received: 02/16/24868 (Continued) Gross Description (Continued) cavity measures 3.2 cm from superior to inferior and 2.7 cm from cornu to cornu. The anterior endomyometrium measures 1.7 cm, and the posterior measures 2.2 cm. The first fallopian tube measures 5.0 cm in length a diameter of 1.0 cm. The second fallopian tube measures 7.5 cm in length a diameter of 0.5 cm. Bailiff sections are as follows A1 anterior cervix A2-A3 anterior endomyometrium A4 posterior cervix A5-A6 posterior endomyometrium A7 volunteer patient representative sections of the first fallopian tube A8 volunteer patient representative section of the second fallopian tube DM Microscopic Description Microscopic examinations are performed supporting the above interpretation CPT Codes 07150 Specimen: [id number] Received: 02/16/24 Status: RUDY Bassett Num: [id number] Spec Type: Surgical Subm Dr: Ron Valenzuela Tissues: A Uterus w/ or w/o tubes ovaries except neoplastic or prolap (UTERUS,CERVIX, Procedures: 8, Gross/Micro L5 Patient: Cari Gaitan [id number] (Continued) Signed (signature on maru (more content not included)... Normal [facility] ALL TYPE AND SCREENon 2023 ABO and Rh group Nom (Bld) Blood group O Rh(D) negative [facility] Healthcare [facility] ALL CBC WITH AUTO DIFFon Erythrocyte distribution width (RBC) [Ratio] 12.1 % 11.0 - 15.0 % [facility] Hematocrit (Bld) [Volume fraction] 40.1 % 36.0 - 48.0 % [facility] Hemoglobin (Bld) [Mass/Vol] 13.8 g/dL 12.0 - 16.0 g/dL [facility] MCH (RBC) [Entitic mass] 31.4 pg 26.7 - 34.[address] [facility] MCHC (RBC) [Mass/Vol] 34.4 g/dL 29.9 - 35.2 g/dL [facility] MCV (RBC) [Entitic vol] 91.1 fL 81.0 - 99.[address] [facility] Platelet mean volume (Bld) [Entitic vol] 10.3 fL 9.5 - 13.[address] [facility] PLT [address] [facility] RBC 4.[address] [facility] WBC 5.[address] [facility] BASIC METABOLIC PANLon 01-22 Anion gap [Moles/Vol] 7 mmol/L Normal 5-15 [facility] Comment on above: Performed By: #### C BCA, 3040-3, LIVR, BMP #### [facility] ([id number]) [address] [place] [address] 17656 Calcium [Mass/Vol] 8.5 mg/dL Normal 8.5-10.5 [facility] Comment on above: Performed By: #### C BCA, 3040-3, LIVR, BMP #### [facility] ([id number]) [address] [place] [address] 02528 Chloride [Moles/Vol] 108 mmol/L Normal 98-109 [facility] Comment on above: Performed By: #### C BCA, 3040-3, LIVR, BMP #### [facility] ([id number]) [address] [place] [address] 32272 CO2 [Moles/Vol] 25 mmol/L Normal 22-32 [facility] Comment on above: Performed By: #### C BCA, 3040-3, LIVR, BMP #### [facility] ([id number]) [address] [place] [address] 77943 Creatinine [Mass/Vol] 0.80 mg/dL Normal 0.40-1.00 [facility] Comment on above: Result Comment: METH OD TRACEABLE TO IDMS STANDARD Performed By: #### C BCA, 3040-3, LIVR, BMP #### [facility] ([id number]) [address] [place] [address] 97496 eGFR (CKD-EPI) NON-RACE DEPENDENT >90 Normal >59 [facility] Comment on above: Result Comment: Reported eGFR is based on the CKD-EPI 2020 equation that does not use a race coefficient. Performed By: #### C OSWALDO, 3040-3, LIVR, BMP #### [facility] ([id number]) [address] [place] [address] 92007 Glucose [Mass/Vol] 100 mg/dL High 65-99 [facility] Comment on above: Performed By: #### C OSWALDO, 3040-3, LIVR, BMP #### [facility] ([id number]) [address] [place] [address] 25428 Potassium [Moles/Vol] 3.8 mmol/L Normal 3.5-5.0 [facility] Comment on above: Performed By: #### C OSWALDO, 3040-3, LIVR, BMP #### [facility] ([id number]) [address] [place] [address] 69454 Sodium [Moles/Vol] 140 mmol/L Normal 134-146 [facility] Comment on above: Performed By: #### C OSWALDO, 3040-3, LIVR, BMP #### [facility] ([id number]) [address] [place] [address] 26521 Urea nitrogen [Mass/Vol] 12 mg/dL Normal 5-23 [facility] Comment on above: Performed By: #### C OSWALDO, 3040-3, LIVR, BMP #### [facility] ([id number]) [address] [place] [address] 71507 CBC AND AUTO DIFFon 01-23-20 24 ABSOLUTE BASOPHIL 0.1 X10E9/L Normal 0.0-0.2 [facility] Comment on above: Performed By: #### C OSWALDO, 3040-3, LIVR, BMP #### [facility] ([id number]) [address] [place] [address] 10847 ABSOLUTE NEUTROPHIL 3.8 X10E9/L Normal 1.5-6.6 [facility] Comment on above: Performed By: #### Franco CHACON, 3039-3, LIVR, BMP #### [facility] ([id number]) [address] [place] [address] 96241 Basophils/100 WBC (Bld) 0.8 % Normal [facility] Comment on above: Performed By: #### Franco CHACON, 3039-3, LIVR, BMP #### [facility] ([id number]) [address] [place] [address] 99341 Eosinophils (Bld) [#/Vol] 0.1 10*3/uL Normal 0.0-0.4 [facility] Comment on above: Performed By: #### Franco CHACON 3, LIVR, BMP #### [facility] ([id number]) [address] [place] [address] 30801 Eosinophils/100 WBC (Bld) 0.9 % Normal [facility] Comment on above: Performed By: #### Franco CHACON 3039-3, LIVR, BMP #### [facility] ([id number]) [address] [place] [address] 48115 Erythrocyte distribution width (RBC) [Ratio] 13.2 % Normal 11.5-15.0 [facility] Comment on above: Performed By: #### Franco CHACON, 0-3, LIVR, BMP #### [facility] ([id number]) [address] [place] [address] 86735 Hematocrit (Bld) [Volume fraction] 38.9 % Normal 35-47 [facility] Comment on above: Performed By: #### Franco CHACON, 0-3, LIVR, BMP #### [facility] ([id number]) [address] [place] [address] 15101 Hemoglobin (Bld) [Mass/Vol] 13.1 g/dL Normal 11.7-15.5 [facility] Comment on above: Performed By: #### C OSWALDO, 3, LIVR, BMP #### [facility] ([id number]) [address] [place] [address] 67110 Lymphocytes (Bld) [#/Vol] 2.4 10*3/uL Normal 1.0-3.5 [facility] Comment on above: Performed By: #### Franco CHACON, 3, LIVR, BMP #### [facility] ([id number]) [address] [place] [address] 29061 Lymphocytes/100 WBC (Bld) 34.9 % Normal [facility] Comment on above: Performed By: #### Franco CHACON, 3, LIVR, BMP #### [facility] ([id number]) [address] [place] [address] 70746 MCH (RBC) [Entitic mass] 30.3 pg Normal 27-34 [facility] Comment on above: Performed By: #### Franco CHACON, 3, LIVR, BMP #### [facility] ([id number]) [address] [place] [address] 85950 MCHC (RBC) [Mass/Vol] 33.6 g/dL Normal 32-36 [facility] Comment on above: Performed By: #### Franco CHACON, 3, LIVR, BMP #### [facility] ([id number]) [address] [place] [address] 91782 MCV (RBC) [Entitic vol] 90 fL Normal 80-100 [facility] Comment on above: Performed By: #### Franco CHACON, 3039-3, LIVR, BMP #### [facility] ([id number]) [address] [place] [address] 17548 Monocytes (Bld) [#/Vol] 0.6 10*3/uL Normal 0-0.9 [facility] Comment on above: Performed By: #### C OSWALDO, 3040-3, LIVR, BMP #### [facility] ([id number]) [address] [place] [address] 02840 Monocytes/100 WBC (Bld) 9.3 % Normal [facility] Comment on above: Performed By: #### Franco CHACON, 3040-3, LIVR, BMP #### [facility] ([id number]) [address] [place] [address] 65187 Neutrophils/100 WBC (Bld) 54.1 % Normal [facility] Comment on above: Performed By: #### Franco CHACON, 0-3, LIVR, BMP #### [facility] ([id number]) [address] [place] [address] 75863 Platelet mean volume (Bld) [Entitic vol] 8.5 fL Normal 7-12 [facility] Comment on above: Performed By: #### Franco CHACON, 0-3, LIVR, BMP #### [facility] ([id number]) [address] [place] [address] 75694 Platelets (Bld) [#/Vol] 342 10*3/uL Normal 150-450 [facility] Comment on above: Performed By: #### Franco CHACON, 3040-3, LIVR, BMP #### [facility] ([id number]) [address] [place] [address] 60432 RBC COUNT 4.31 X10E12/L Normal 3.80-5.20 [facility] Comment on above: Performed By: #### Franco CHACON, 3040-3, LIVR, BMP #### [facility] ([id number]) [address] [place] [address] 18821 WBC (Bld) [#/Vol] 7.0 10*3/uL Normal 4.0-11.0 [facility] Comment on above: Performed By: #### C OSWALDO, 3040-3, LIVR, BMP #### [facility] ([id number]) [address] [place] [address] 75075 HCG ( test) Ql (U)o n 01-23-2024 Beta HCG ( test) Ql (U) Negative Normal NEG [facility] Comment on above: Performed By: #### 2 106-3 #### [facility] ([id number]) [address] [place] [address] 73115 LIPASEon 01-23-2024 Lipase [Catalytic activity/Vol] 40 U/L Normal 17-40 [facility] Comment on above: Performed By: #### C OSWALDO, 3040-3, LIVR, BMP #### [facility] ([id number]) [address] [place] [address] 32673 LIVER PANELon 01-23-2024 Albumin [Mass/Vol] 4.1 g/dL Normal 3.2-5.3 [facility] Comment on above: Performed By: #### C OSWALDO, 3040-3, LIVR, BMP #### [facility] ([id number]) [address] [place] [address] 41972 ALP [Catalytic activity/Vol] 70 U/L Normal 39-130 [facility] Comment on above: Performed By: #### C OSWALDO, 3040-3, LIVR, BMP #### [facility] ([id number]) [address] [place] [address] 98646 ALT [Catalytic activity/Vol] 15 U/L Normal 0-31 [facility] Comment on above: Performed By: #### C OSWALDO, 3040-3, LIVR, BMP #### [facility] ([id number]) [address] [place] [address] 04004 AST [Catalytic activity/Vol] 15 U/L Normal 0-41 [facility] Comment on above: Performed By: #### C OSWALDO, 3040-3, LIVR, BMP #### [facility] ([id number]) [address] [place] [address] 34137 Bilirubin [Mass/Vol] 0.3 mg/dL Normal 0.3-1.2 [facility] Comment on above: Performed By: #### C OSWALDO, 3040-3, LIVR, BMP #### [facility] ([id number]) [address] [place] [address] 99107 Bilirubin.indirect [Mass/Vol] mg/dL Normal 0.0-0.4 [facility] Comment on above: Performed By: #### C OSWALDO, 3040-3, LIVR, BMP #### [facility] ([id number]) [address] [place] [address] 61069 Protein [Mass/Vol] 7.2 g/dL Normal 6.0-8.0 [facility] Comment on above: Performed By: #### C OSWALDO, 3040-3, LIVR, BMP #### [facility] ([id number]) [address] [place] [address] [place] [address] URN MACROSCOPIC NURon 2023 BILIRUBIN NADYA Negative Normal NEG [facility] Comment on above: Performed By: #### N UM #### [facility] ([id number]) [address] [place] [address] [place] [address] BLOOD/HGB NADYA Negative Normal NEG [facility] Comment on above: Performed By: #### N UM #### [facility] ([id number]) [address] [place] [address] 94308 GLUCOSE NADYA Negative Normal NEG [facility] Comment on above: Performed By: #### N UM #### [facility] ([id number]) [address] [place] [address] [place] [address] KETONES NADYA Negative Normal NEG [facility] Comment on above: Performed By: #### N UM #### [facility] ([id number]) [address] [place] [address] 66910 LEUKOCYTE ESTERASE NADYA Negative Normal NEG [facility] Comment on above: Performed By: #### N UM #### [facility] ([id number]) [address] [place] [address] 45356 NITRITE NADYA Negative Normal NEG [facility] Comment on above: Performed By: #### N UM #### [facility] ([id number]) [address] [place] [address] 60470 PH NADYA 7.0 Normal 5.0-8.5 [facility] Comment on above: Performed By: #### N UM #### [facility] ([id number]) [address] [place] [address] 84246 PROTEIN NADYA Negative Normal NEG [facility] Comment on above: Performed By: #### N UM #### [facility] ([id number]) [address] [place] [address] 39438 SPECIFIC GRAVITY NADYA 1.025 Normal 1.003-1.035 [facility] Comment on above: Performed By: #### N UM #### [facility] ([id number]) [address] [place] [address] 70187 UROBILINOGEN NADYA 0.2 eu/dL Normal <1.1 [facility] Comment on above: Performed By: #### N UM #### [facility] ([id number]) [address] [place] [address] 96443 XR SPINE THORACIC 3 VWSon XR SPINE [...] Ramon Ryan DO on 01/23/2024 9:02 AM Niles Mendez MD have personally reviewed the image(s) and agree with and/or edited the report Finalized by Niles Yoon MD on 01/23/2024 9:09 AM Normal [facility] HCG ( test) Ql (U)o n 01-16-2024 Interpretation and review of laboratory results Normal [facility] Preg Test, Ur Negative [facility] No Panel InformationOrdered By: Ron Valenzuela on 01-16-2024 Miscellaneous Pathology Test See comment [facility] Comment on above: See report. Scanned copy available in EMR. Pathology Request for Lab Co rpon 01-16-2024 Pathology Request for Lab Neetu Normal [facility] Comment on above: Order Comment: PATHO LOGY EMB SPECIMEN Result Comment: See report. Scanned copy available in EMR. PERFORMED BY: [place] [address] PATHOLOGIST [employer] MOISES VELASCO M.D. Performed By: #### P ATH TO [facility] #### [address] POCT urinalysis dipstick onl yon 01-10-2024 Appearance (U) cloudy [facility] External Poct Urine Bilirubin Negative [facility] External Poct Urine Blood Large [facility] External Poct Urine Color brown [facility] External Poct Urine Glucose Negative [facility] External Poct Urine Ketones Negative [facility] External Poct Urine Leukocyte Esterase Moderate [facility] External Poct Urine Nitrite Negative [facility] External Poct Urine Ph 8.5 Pr [facility] External Poct Urine Protein 3+ [facility] External Poct Urine Specific Cataldo 1.020 [facility] External Poct Urine Urobilinogen 1.0 [facility] URINE CULTUREon 01-10-2024 Bacteria identified Cx Nom [...] F TRIMETH/SULFAMETHOXA ZOLE R >=16/[address] [facility] Comment on above: Performed By: #### 6 30-4 #### [facility] ([id number]) [address] [place] [address] Blood Gas, Venouson 01-07-20 Arterial patency Wrist artery --pre arterial puncture NO [facility] HCO3 (Bld) [Moles/Vol] 24.9 mmol/L 24.0 - 30.0 mmol/L [facility] Negative Base Excess, Gaudencio 0.2 mmol/L 0.0 - 2.0 mmol/L [facility] Oxygen gas flow Oxygen delivery system ROOM AIR [facility] Oxygen saturation in Blood 77.3 % 60.0 - 85.0 % [facility] Oxygen/Inspired gas Respiratory system --on ventilator 21 [facility] pCO2, Gaudencio 42.3 [facility] pCO2, Gaudencio, Temp Adj 42.3 [facility] pH, Gaudencio 7.388 7.32 - 7.42 [facility] pH, Gaudencio, Temp Adj 7.388 7.320 - 7.420 [facility] PO2, Gaudencio 42.2 [facility] pO2, Gaudencio, Temp Adj 42.2 [facility] CBC with Auto Differentialon 01-07-2024 Basophils (Bld) [#/Vol] 0.06 10*3/uL [facility] Basophils/100 WBC (Bld) 1 % 0 - 2 % B [facility] Eosinophils (Bld) [#/Vol] 0.06 10*3/uL [facility] Eosinophils/100 WBC (Bld) 1 % 1 - 4 % [facility] Erythrocyte distribution width (RBC) [Ratio] 12.3 % 11.8 - 14.4 % [facility] Hematocrit (Bld) [Volume fraction] 40.3 % 36.3 - 47.1 % [facility] Hemoglobin (Bld) [Mass/Vol] 14.0 g/dL 11.9 - 15.1 g/dL [facility] Immature granulocytes (Bld) [#/Vol] [facility] Immature granulocytes/100 WBC (Bld) 0 % 0 [facility] Interpretation and review of laboratory results Abnormal [facility] Lymphocytes/100 WBC (Bld) 44 % High 24 - 43 % [facility] Lymphocytes/100 WBC (Bld) 3.59 % [facility] MCH (RBC) [Entitic mass] 30.4 pg 25.2 - 33.5 pg [facility] MCHC (RBC) [Mass/Vol] 34.7 g/dL 28.4 - 34.8 g/dL [facility] MCV (RBC) [Entitic vol] 87.4 fL 82.6 - 102.9 fL [facility] Monocytes/100 WBC (Bld) 8 % 3 - 12 % [facility] Monocytes/100 WBC (Bld) 0.67 % [facility] Neutrophils/100 WBC (Bld) 46 % 36 - 65 % [facility] Nucleated RBC/100 WBC (Bld) [Ratio] 0.0 % 0.0 per 100 WBC [facility] Platelet mean volume (Bld) [Entitic vol] 10.3 fL 8.1 - 13.5 fL [facility] Platelets (Bld) [#/Vol] 292 10*3/uL [facility] RBC (Bld) [#/Vol] 4.61 10*6/uL 3.95 - 5.1 1 m/uL [facility] Segmented neutrophils/100 WBC (Bld) 3.71 % [facility] WBC other (Bld) [#/Vol] 8.1 B [facility] CMPon 01-07-2024 Albumin [Mass/Vol] 4.6 g/dL 3.5 - 5.2 g/dL [facility] Albumin/Globulin [Mass ratio] 1.6 {ratio} 1.0 - 2.5 [facility] ALP [Catalytic activity/Vol] 73 U/L 35 - 104 U/L [facility] ALT [Catalytic activity/Vol] 9 U/L 5 - 33 U/L [facility] Anion gap [Moles/Vol] 10 mmol/L 9 - 17 mmol/L [facility] AST [Catalytic activity/Vol] 14 U/L NINF - 32 U/L [facility] Bilirubin [Mass/Vol] 0.4 mg/dL 0.3 - 1 .2 mg/dL [facility] Calcium [Mass/Vol] 8.6 mg/dL 8.6 - 10. 4 mg/dL [facility] Chloride [Moles/Vol] 100 mmol/L 98 - 10 7 mmol/L [facility] CO2 [Moles/Vol] 25 mmol/L 20 - 31 mmol/L [facility] Creatinine [Mass/Vol] 0.8 mg/dL 0.5 - 0.9 mg/dL [facility] Est, Gloluisito Deleont Rate - [facility] Comment on above: These results [...] that affects renal tubular secretion. Glucose [Mass/Vol] 94 mg/dL 70 - 99 mg/dL [facility] Interpretation and review of laboratory results Abnormal [facility] Potassium [Moles/Vol] 3.8 mmol/L 3.7 - 5.3 mmol/L [facility] Protein [Mass/Vol] 7.4 g/dL 6.4 - 8.3 g/dL [facility] Sodium [Moles/Vol] 135 mmol/L 135 - 144 mmol/L [facility] Urea nitrogen [Mass/Vol] 19 mg/dL 6 - 20 mg/dL [facility] Urea nitrogen/Creatinine [Mass ratio] 24 mg/mg High 9 - 20 [facility] D-Dimer, Quantitativeon 12-28 Fibrin D-dimer FEU (PPP) [Mass/Vol] 0.39 [facility] Comment on above: When combined with a low clinical probability, [...] more prevalent in patients with distal DVT. [facility] Ethanolon 01-07-2024 Ethanol percent <0.010 NINF - 0.010 % [facility] Ethanolamine [Mass/Vol] <10 NINF - 10 mg/dL [facility] Microscopic Urinalysison Bacteria LM Ql (Urine sed) 3+ Abnormal None [facility] Epithelial cells LM.HPF (Urine sed) [#/Area] 5 TO 10 [facility] Interpretation and review of laboratory results Abnormal [facility] RBC LM.HPF (Urine sed) [#/Area] 0 TO 2 [facility] WBC LM.HPF (Urine sed) [#/Area] 5 TO 10 [facility] Portable XR Chest AP single viewon 01-07-2024 No acute cardiopulmonary process. [facility] EXAMINATION: ONE XRAY VIEW OF THE CHEST 01/07/2024 10:00 pm COMPARISON: None. HISTORY: ORDERING SYSTEM PROVIDED HISTORY: h/o asthma TECHNOLOGIST PROVIDED HISTORY: h/o asthma FINDINGS: Lungs are clear. There is no pleural effusion or pneumothorax. Heart is normal in size. Pulmonary vascular markings are normal. No acute osseous abnormalities are seen. [facility] Jonnie So MD - 01/07/2024 EXAMINATION: ONE XRAY VIEW OF THE CHEST 01/07/2024 10:00 pm COMPARISON: None. HISTORY: ORDERING SYSTEM PROVIDED HISTORY: h/o asthma TECHNOLOGIST PROVIDED HISTORY: h/o asthma FINDINGS: Lungs are clear. There is no pleural effusion or pneumothorax. Heart is normal in size. Pulmonary vascular markings are normal. No acute osseous abnormalities are seen. IMPRESSION: No acute cardiopulmonary process. [facility] Radiology Study observation (narrative) [facility] Portable XR Chest AP single viewOrdered By: Jonnie So on 01-07-2024 [facility] Work Phone: , Urineon 4 HCG ( test) Ql (U) Negative NEGATIVE [facility] Comment on above: Specimens with hCG l evels near the threshold of the test (25 mIU/mL) may give a negative or indeterminate result. In such cases, another test should be performed with a new specimen in 48-72 hours. If early is suspected clinically in this setting, correlation with quantitative serum b-hCG level is suggested. [employer] has confirmed the use of plasma for this test. This has not been cleared or approved by the [place] Food and Drug Administration. The FDA has determined that such clearance is not necessary. [facility] Troponinon 01-07-2024 Troponin I.cardiac High sensitivity method [Mass/Vol] ng/L 0 - 14 ng/L [facility] Comment on above: High Sensitivity Tro ponin values cannot be compared with other Troponin methodologies. [facility] Urinalysis with Reflex to Cu ltureon 01-07-2024 Bilirubin Ql (U) Negative NEGATIVE [facility] Clarity (U) Clear Clear [facility] Color (U) Yellow Yellow [facility] Glucose Test strip (U) [Mass/Vol] Negative NEGATIVE mg/dL [facility] Hemoglobin Auto test strip Ql (U) Negative NEGATIVE [facility] Interpretation and review of laboratory results Abnormal [facility] Ketones (U) [Mass/Vol] Negative NEGAT [facility]I mg/dL [facility] Leukocyte esterase Test strip Ql (U) Negative NEGATIVE [facility] Nitrite Ql (U) Negative NEGATIVE [facility] pH (U) 6.0 [pH] 5.0 - 9.0 [facility] Protein (U) [Mass/Vol] Negative NEGAT [facility] mg/dL [facility] Specific gravity (U) [Rel density] High 1.010 - 1.020 [facility] Urobilinogen Qn (U) Normal 0.0 - 1. 0 EU/dL [facility] Urine Drug Screenon 01-07-20 24 Amphetamines Ql (U) Positive Abnormal NEGATIVE [facility] Comment on above: (Positive cutoff 1000 ng/mL) Barbiturates Screen Ql (U) Negative NEGATIVE [facility] Comment on above: (Positive cutoff 200 ng/mL) Benzodiazepines Ql (U) Positive Abnormal NEGATIVE [facility] Comment on above: (Positive cutoff 200 ng/mL) Buprenorphine Ql (U) Negative NEGATIVE [facility] Comment on above: (Positive cutoff 5 ng/ml) Cannabinoids Screen Ql (U) Negative NEGATIVE [facility] Comment on above: (Positive cutoff 50 ng/mL) Cocaine Ql (U) Negative NEGATIVE [facility] Comment on above: (Positive cutoff 300 ng/mL) fentaNYL Ql (U) Negative NEGATIVE [facility] Comment on above: (Positive cutoff 5 ng/ml) Interpretation and review of laboratory results Abnormal [facility] Methadone Ql (U) Negative NEGATIVE [facility] [employer] [facility] Comment on above: (Positive cutoff 300 ng/mL) Opiates Screen Ql (U) Negative NEGATIVE [facility] [employer] Comment on above: (Positive cutoff 300 ng/mL) oxyCODONE Ql (U) Negative NEGATIVE [facility] [employer] Comment on above: (Positive cutoff 100 ng/mL) Phencyclidine Ql (U) Negative NEGATIVE [facility] Comment on above: (Positive cutoff 25 ng/mL) Test Information Assay provides medical screening only. The absence of expected drug(s) and/or metabolite(s) may indicate diluted or adulterated urine, limitations of testing or timing of collection. [facility] Comment on above: Testing for legal pu rposes should be confirmed by another method. To request confirmation of test result, please call the lab within 7 days of sample submission. [facility] Basic Metabolic Panelon 06-2 Anion gap [Moles/Vol] 9 mmol/L 9 - 17 mmol/L [facility] [employer] Calcium [Mass/Vol] 9.1 mg/dL 8.6 - 10. 4 mg/dL [facility] Chloride [Moles/Vol] 103 mmol/L 98 - 10 7 mmol/L [facility] [employer] CO2 [Moles/Vol] 25 mmol/L 20 - 31 mmol/L [facility] [employer] Creatinine [Mass/Vol] 0.8 mg/dL 0.5 - 0.9 mg/dL [facility] [employer] Est, Glom Filt Rate - [facility] Comment on above: These results [...] that affects renal tubular secretion. Glucose [Mass/Vol] 87 mg/dL 70 - 99 mg/dL [facility] Potassium [Moles/Vol] 3.8 mmol/L 3.7 - 5.3 mmol/L [facility] [employer] Sodium [Moles/Vol] 137 mmol/L 135 - 144 mmol/L [facility] Urea nitrogen [Mass/Vol] 9 mg/dL 6 - 20 mg/dL [facility] Urea nitrogen/Creatinine [Mass ratio] 11 mg/mg 9 - 20 [facility] CBC with Auto Differentialon 11-20-2023 Basophils (Bld) [#/Vol] 0.05 10*3/uL [facility] Basophils/100 WBC (Bld) 1 % 0 - 2 % [facility] Eosinophils (Bld) [#/Vol] 0.07 10*3/uL [facility] Eosinophils/100 WBC (Bld) 1 % 1 - 4 % [facility] Erythrocyte distribution width (RBC) [Ratio] 12.3 % 11.8 - 14.4 % [facility] Hematocrit (Bld) [Volume fraction] 39.8 % 36.3 - 47.1 % [facility] Hemoglobin (Bld) [Mass/Vol] 13.5 g/dL 11.9 - 15.1 g/dL [facility] Immature granulocytes (Bld) [#/Vol] [facility] Immature granulocytes/100 WBC (Bld) 0 % 0 [facility] Lymphocytes/100 WBC (Bld) 34 % 24 - 43 % [facility] Lymphocytes/100 WBC (Bld) 2.81 % [facility] MCH (RBC) [Entitic mass] 29.9 pg 25.2 - 33.5 pg [facility] MCHC (RBC) [Mass/Vol] 33.9 g/dL 28.4 - 34.8 g/dL [facility] MCV (RBC) [Entitic vol] 88.1 fL 82.6 - 102.9 fL [facility] Monocytes/100 WBC (Bld) 8 % 3 - 12 % [facility] Monocytes/100 WBC (Bld) 0.62 % [facility] Neutrophils/100 WBC (Bld) 56 % 36 - 65 % [facility] Nucleated RBC/100 WBC (Bld) [Ratio] 0.0 % 0.0 per 100 WBC [facility] Platelet mean volume (Bld) [Entitic vol] 10.2 fL 8.1 - 13.5 fL [facility] Platelets (Bld) [#/Vol] 302 10*3/uL [facility] RBC (Bld) [#/Vol] 4.52 10*6/uL 3.95 - 5.1 1 m/uL [facility] Segmented neutrophils/100 WBC (Bld) 4.60 % [facility] WBC other (Bld) [#/Vol] 8.2 B ON [facility] CT CHEST PULMONARY EMBOLISM W CONTRASTon 11-20-2023 No evidence of pulmonary embolism or acute pulmonary abnormality. [facility] EXAMINATION: CTA OF THE CHEST 11/20/2023 9:13 [...] No acute bone or soft tissue abnormality. [facility] Costa Block MD - 11/20/2023 EXAMINATION: CTA OF THE CHEST 11/20/2023 9:13 [...] of pulmonary embolism or acute pulmonary abnormality. [facility] Radiology Study observation (narrative) [facility] CT CHEST PULMONARY EMBOLISM W CONTRASTOrdered By: Costa Block on 11-20-2023 [facility] Work Phone: Troponinon 11-20-2023 Troponin I.cardiac High sensitivity method [Mass/Vol] ng/L 0 - 14 ng/L [facility] Comment on above: High Sensitivity Tro ponin values cannot be compared with other Troponin methodologies. [facility] Ambulatory Visit Summaryon 0 11-08-2023 Ambulatory Visit Summary CARI GAITAN Maury :1995 Visit Date:11/08/2023 Ambulatory Visit Instructions Your Diagnosis Cystitis Your Care Team Attending Physician - ROLANDO DEVLIN, Rishi Thomas Primary Care Physician - TOM LEMUS DO This Is Your Medications List [...] swelling) Latuda (Suicidal ideation) Vicodin (Hallucinations) Zithromax Z-Pacheco (Unknown) azithromycin (Unknown) bee pollen (Edema) Problems [...] for choosing us for your care. Normal [facility] RAD - MISCon 11-07-2023 RAD - MISC [id number] #1.00TIFF Normal [facility] RAD - Ultrasound Reporton RAD - Ultrasound Report [id number] #1.00TIFF Normal [facility] Cytology Cervical or vaginal smear or scraping studyon 07-27-[address] [facility] RAD - CT Reporton 05-25-2023 RAD - CT Report [id number] #1.00TIFF Normal [facility] HCG ( test) IAedgardoi d Ql (U)Ordered By: Fany Ceballos on 05-19-2023 HCG ( test) Ql (U) Negative [facility] Consent for Procedure/Surger yon 05-11-2023 Consent for Procedure/Surgery [id number]#1.00TIFF Normal [facility] Ambulatory Visit Summaryon 1 07-11-2022 Ambulatory Visit Summary CARI GAITAN :1995 Visit Date:05/10/2023 Ambulatory Visit Instructions Your Diagnosis Gross hematuria Flank pain Foreign body in bladder Your Care Team Attending Physician - ROLANDO DEVLIN, Rishi Thomas Primary Care Physician - TOM LEMUS DO This Is Your Medications List [...] 10:15 AM EDT With: ROLANDO DEVLIN, Rishi Thomas Where: [facility] Nancy Normal [facility] Patient Educationon 05-10-20 23 Patient Education Urology [...] these instructions at home: Medicines ? Take eqpo-war-jfbynjv and prescription medicines only as told by [...] the blood stops without treatment. ? Take ylvs-uhf-zzpmzqi and prescription medicines only as told by your health care provider. ? Drink enough fluid to keep your urine pale yellow. This information is not intended to replace advice given to you by your health care provider. Make sure you discuss any questions you have with your health care provider. Document Revised: 01/14/2021 Document Reviewed: 01/14/2021 [employer] Patient Education ? 2022 [employer] [facility] Urology Office/Clinic Noteon 05-10-2023 Urology Office/Clinic [...] Bactrim x 3 days empirically. went to [place] ER next day bc blood persisted. CT [...] [facility] [address], [place] [address]- Additional Instructions: w/PVR Patient Education Hematuria, Adult I, Johana De Jesus , personally scribed for Dr. Young on 05/10/2023 11:52:58. . Portions of this record may have been created with voice recognition artificial intelligence software, specifically RoboteX, AppFog and or Slyce. Substitutions may have occurred due to the [...] Daily busPIRon (more content not included)... Normal [facility] Comment on above: Result Comment: Elec tronically Signed By: Rishi YOUNG MD\.br\Date and Time Signed: 05/10/23 11:55 EST\.br\Electronically Co-Signed By: Johana De Jesus.br\Date and Time Co-Signed: 05/10/23 11:53 EST RAD - MISCon 04-26-2023 RAD - MISC [id number]# 1.00TIFF [facility] Lab Reportson 04-15-2023 Lab Reports [id number]# 1.00TIFF [facility] Operative Reporton Operative Report [id number] #1.00TIFF [facility] Lab Reportson 04-08-2023 Lab Reports [id number] #1.00TIFF [facility] Insurance Correspondenceon 1 05-30-2022 Insurance Correspondence [id number]#1.00TIFF [facility] Consent for Procedure/Surger yon 03-24-2023 Consent for Procedure/Surgery [id number]#1.00TIFF [facility] COVID + FLU Quick Testingon 02-11-2023 SARS-CoV-2 (COVID-19) RNA ALEKSANDER+probe Ql (Unsp spec) Negative [employer] Other COVID + FLU Quick Testing Negative [employer] Other Quick Strepon 02-11-2023 S. pyogenes Org specific cx Ql (Throat) Negative [facility] [employer] Other Quick [employer] Other Alanine aminotransferase [En zymatic activity/volume] in Serum or PlasmaOrdered By: Tom Patel on 02-02-2023 ALT [Catalytic activity/Vol] 38 U/L 7-52 [facility] Albumin [Mass/volume] in Ser um or Plasma by Bromocresol green (BCG) dye binding methoOrdered By: Tom Patel on 02-02-2023 Albumin BCG dye [Mass/Vol] 4.6 g/dL 3.5-5.7 [facility] Alkaline phosphatase [Enzyma tic activity/volume] in Serum or PlasmaOrdered By: Tom Patel on 02-02-2023 ALP [Catalytic activity/Vol] 54 U/L 34-104 [facility] Amphetamine Screen Ql (U)Ord ered By: Tom Patel on 02-02-2023 Amphetamines Ql (U) Negative Negative [facility] Aspartate aminotransferase [ Enzymatic activity/volume] in Serum or PlasmaOrdered By: Tom Patel on 02-02-2023 AST [Catalytic activity/Vol] 32 U/L 13-39 [facility] Automated erythrocytes count in urine sediment (number/area)Ordered By: Tom Patel on 02-02-2023 RBC Auto (Urine sed) [#/Area] 10-19 [HPF] 0-4 [facility] Automated leukocytes count i n urine sediment (number/area)Ordered By: Tom Patel on 02-02-2023 WBC Auto (Urine sed) [#/Area] 10-19 [HPF] 0-4 [facility] Automated urine hyaline cast s count (number/volume)Ordered By: Tom Patel on 02-02-2023 Hyaline casts Auto (U) [#/Vol] 0-1 [LPF] 0-1 [facility] Barbiturates [Presence] in U rine by Screen methodOrdered By: Tom Patel on 02-02-2023 Barbiturates Screen Ql (U) Negative Negative [facility] Basophils Auto (Bld) [#/Vol] Ordered By: Tom Patel on 02-02-2023 Basophils (Bld) [#/Vol] 0.1 10*3/uL 0.0-0.2 [facility] Basophils/100 WBC Auto (Bld) Ordered By: Tom Patel on 02-02-2023 Basophils/100 WBC (Bld) 0.9 % . [facility] Benzodiazepines Screen Ql (U )Ordered By: Tom Patel on 02-02-2023 Benzodiazepines Ql (U) Negative Negative [facility] Benzoylecgonine [Presence] i n Urine by Screen methodOrdered By: Tom Patel on 02-02-2023 Benzoylecgonine Screen Ql (U) Negative Negative [facility] Bilirubin Test strip Ql (U)O rdered By: Tom Patel on 02-02-2023 Bilirubin Ql (U) Negative Negative [facility] Bilirubin.direct [Mass/volum e] in Serum or PlasmaOrdered By: Tom Patel on 02-02-2023 Bilirubin.direct [Mass/Vol] 0.10 mg/dL 0.03-0.18 [facility] Bilirubin.total [Mass/volume ] in Serum or PlasmaOrdered By: Tom Patel on 02-02-2023 Bilirubin [Mass/Vol] 0.6 mg/dL 0.3-1.0 [facility] Calcium [Mass/volume] in Ser um or PlasmaOrdered By: Tom Patel on 02-02-2023 Calcium [Mass/Vol] 9.5 mg/dL 8.6-10.3 [facility] Cannabinoids [Presence] in U rine by Screen methodOrdered By: Tom Patel on 02-02-2023 Cannabinoids Screen Ql (U) Negative Negative [facility] Comment on above: These are unconfirme d results and should not be used for legal purposes. Drug Cut-Off Concentration: AMPH 1000 ng/mL KASEY 200 ng/mL KRISTAN 200 ng/mL COCM 300 ng/mL OP 300 ng/mL PCP 25 ng/mL THC 20 ng/mL Carbon dioxide, total [Moles /volume] in Serum or PlasmaOrdered By: Tom Patel on 02-02-2023 CO2 [Moles/Vol] 28.3 mmol/L 21.0-31.0 [facility] Casts typing in urine sedime nt by light microscopyOrdered By: Tom Patel on 02-02-2023 Casts LM Nom (Urine sed) None seen [LPF] None Seen [facility] Chloride [Moles/volume] in S barbra or PlasmaOrdered By: Tom Patel on 02-02-2023 Chloride [Moles/Vol] 107 mmol/L 98-107 [facility] Color Auto (U)Ordered By: Mariela Patel on 02-02-2023 Color (U) Yellow Yellow [facility] Creatinine [Mass/volume] in Serum or PlasmaOrdered By: Tom Patel on 02-02-2023 Creatinine [Mass/Vol] 1.14 mg/dL 0.60-1.20 [facility] Eosinophils Auto (Bld) [#/Vo l]Ordered By: Tom Patel on 02-02-2023 Eosinophils (Bld) [#/Vol] 0.0 10*3/uL 0.0-0.45 [facility] Eosinophils/100 WBC Auto (Bl d)Ordered By: Tom Patel on 02-02-2023 Eosinophils/100 WBC (Bld) 0.4 % . [facility] Erythrocyte distribution wid th Auto (RBC) [Ratio]Ordered By: Tom Patel on 02-02-2023 Erythrocyte distribution width (RBC) [Ratio] 12.9 % 11.9-15.3 [facility] Ethanol [Mass/volume] in Ser um or PlasmaOrdered By: Tom Patel on 02-02-2023 Ethanol [Mass/Vol] mg/dL [facility] Ethanol [Mass/Vol] TNP [facility] Comment on above: Test not performed Globulin Calc (S) [Mass/Vol] Ordered By: Tom Patel on 02-02-2023 Globulin (S) [Mass/Vol] 3.2 g/dL [facility] Glucose [Mass/volume] in Ser um or PlasmaOrdered By: Tom Patel on 02-02-2023 Glucose [Mass/Vol] 98 mg/dL 70-100 [facility] Comment on above: ADA recommended refe rence rangeRandom Glucose Reference Range is dependent on time and content of last meal. Glucose of more than 200 mg/dL in a nonstressed, ambulatory subject supports the diagnosis of Diabetes Mellitus. HCG ( test) IA.rapi d Ql (U)Ordered By: Tom Patel on 02-02-2023 HCG ( test) Ql (U) Negative [facility] Hematocrit Auto (Bld) [Volum e fraction]Ordered By: Tom Patel on 02-02-2023 Hematocrit (Bld) [Volume fraction] 41.1 % 34.0-46.4 [facility] Hemoglobin [Mass/volume] in BloodOrdered By: Tom Patel on 02-02-2023 Hemoglobin (Bld) [Mass/Vol] 13.8 g/dL 11.8-15.4 [facility] Ketones Auto test strip (U) [Mass/Vol]Ordered By: Tom Patel on 02-02-2023 Ketones (U) [Mass/Vol] 2+ Negative [facility] Leukocytes [#/volume] correc alberto for nucleated erythrocytes in Blood by Automated counOrdered By: Tom Patel on 02-02-2023 WBC corrected for nucl RBC Auto (Bld) [#/Vol] 7.6 10*3/uL 3.8-11.6 [facility] Lymphocytes Auto (Bld) [#/Vo l]Ordered By: Tom Patel on 02-02-2023 Lymphocytes (Bld) [#/Vol] 2.7 10*3/uL 1.00-4.8 [facility] Lymphocytes/100 WBC Auto (Bl d)Ordered By: Tom Patel on 02-02-2023 Lymphocytes/100 WBC (Bld) 36.0 % . [facility] MCH Auto (RBC) [Entitic mass ]Ordered By: Tom Patel on 02-02-2023 MCH (RBC) [Entitic mass] 29.4 pg 24.7-34.3 [facility] MCHC Auto (RBC) [Mass/Vol]Or dered By: Tom Patel on 02-02-2023 MCHC (RBC) [Mass/Vol] 33.6 g/dL 32.0-35.0 [facility] MCV Auto (RBC) [Entitic vol] Ordered By: Tom Patel on 02-02-2023 MCV (RBC) [Entitic vol] 87.6 fL 80-100 [facility] Monocyte distribution width [Entitic volume] in Blood by AutomatedOrdered By: Tom Patel on 02-02-2023 Monocyte distribution width Auto (Bld) [Entitic vol] 17.83 % 0.00-20.00 [facility] Monocytes Auto (Bld) [#/Vol] Ordered By: Tom Patel on 02-02-2023 Monocytes (Bld) [#/Vol] 0.6 10*3/uL 0.0-0.8 [facility] Monocytes/100 WBC Auto (Bld) Ordered By: Tom Patel on 02-02-2023 Monocytes/100 WBC (Bld) 7.9 % . [facility] Neutrophils Auto (Bld) [#/Vo l]Ordered By: Tom Patel on 02-02-2023 Neutrophils (Bld) [#/Vol] 4.2 10*3/uL 1.8-7.7 [facility] Neutrophils/100 WBC Auto (Bl d)Ordered By: Tom Patel on 02-02-2023 Neutrophils/100 WBC (Bld) 54.8 % . [facility] Nitrite Test strip Ql (U)Ord ered By: Tom Patel on 02-02-2023 Nitrite Ql (U) Negative Negative [facility] No Panel InformationOrdered By: Tom Patel on 02-02-2023 Estimated GFR (CKD-EPI) > 60.0 mL/Min [facility] Creatinine Clearance (Chem 76.05 [facility] Nucleated erythrocytes [Pres ence] in Blood by Automated countOrdered By: Tom Patel on 02-02-2023 Nucleated RBC Auto Ql (Bld) 0.0 /100{WBC} 0-0.5 [facility] Opiates [Presence] in Urine by Screen methodOrdered By: Tom Patel on 02-02-2023 Opiates Screen Ql (U) Negative Negative [facility] Phencyclidine Screen Ql (U)O rdered By: Tom Patel on 02-02-2023 Phencyclidine Ql (U) Negative Negative [facility] Platelet mean volume Auto (B ld) [Entitic vol]Ordered By: Tom Patel on 02-02-2023 Platelet mean volume (Bld) [Entitic vol] 9.2 fL 6.3-10.7 [facility] Platelets Auto (Bld) [#/Vol] Ordered By: Tom Patel on 02-02-2023 Platelets (Bld) [#/Vol] 322 10*3/uL 150-450 [facility] Potassium [Moles/volume] in Serum or PlasmaOrdered By: Tom Patel on 02-02-2023 Potassium [Moles/Vol] 3.8 mmol/L 3.5-5.1 [facility] Protein Auto test strip (U) [Mass/Vol]Ordered By: Tom Patel on 02-02-2023 Protein (U) [Mass/Vol] 30 mg/dL Negative [facility] Protein [Mass/volume] in Ser um or PlasmaOrdered By: Tom Patel on 02-02-2023 Protein [Mass/Vol] 7.8 g/dL 6.4-8.9 [facility] RBC Auto (Bld) [#/Vol]Ordere d By: Tom Patel on 02-02-2023 RBC (Bld) [#/Vol] 4.70 10*6/uL 3.60-5.00 [facility] Serum or plasma albumin/glob ulin mass ratioOrdered By: Tom Patel on 02-02-2023 Albumin/Globulin [Mass ratio] 1.4 {ratio} [facility] Serum or plasma anion gap de terminationOrdered By: Tom Patel on 02-02-2023 Anion gap [Moles/Vol] 9.5 mmol/L 6.0-15.0 [facility] Serum or plasma non-glucuron idated bilirubin measurement (mass/volume)Ordered By: Tom Patel on 02-02-2023 Bilirubin.indirect [Mass/Vol] 0.5 mg/dL [facility] Sodium [Moles/volume] in Ser um or PlasmaOrdered By: Tom Patel on 02-02-2023 Sodium [Moles/Vol] 141 mmol/L 136-145 [facility] Specific gravity Auto test s trip (U) [Rel density]Ordered By: Tom Patel on 02-02-2023 Specific gravity (U) [Rel density] 1.027 1.001-1.030 [facility] Squamous epithelial cells de tection in urine sediment by light microscopyOrdered By: Tom Patel on 02-02-2023 Epithelial cells.squamous LM Ql (Urine sed) 3-4 [HPF] 0-2 [facility] Thyrotropin [Units/volume] i n Serum or PlasmaOrdered By: Tom Patel on 02-02-2023 TSH Qn 3.74 m[IU]/L 0.45-5.33 [facility] Urea nitrogen [Mass/volume] in Serum or PlasmaOrdered By: Tom Patel on 02-02-2023 Urea nitrogen [Mass/Vol] 11 mg/dL 7-25 [facility] Urine bacteria detection by automated methodOrdered By: Tom Patel on 02-02-2023 Bacteria Auto Ql (U) 1+ None Seen [facility] Urine clarity by refractomet ry automatedOrdered By: Tom Patel on 02-02-2023 Clarity Refractometry automated (U) Cloudy Clear [facility] Urine culture routineOrdered By: Tom Patel on 02-02-2023 Bacteria identified Cx Nom (U) No Growth 2 Days [facility] Urine glucose measurement by automated test strip (mass/volume)Ordered By: Tom Patel on 02-02-2023 Glucose Auto test strip (U) [Mass/Vol] Normal mg/dL Normal [facility] Urine hemoglobin detection b y automated test stripOrdered By: Tom Patel on 02-02-2023 Hemoglobin Auto test strip Ql (U) 3+ Negative [facility] Urine leukocyte esterase det ection by automated test stripOrdered By: Tom Patel on 02-02-2023 Leukocyte esterase Auto test strip Ql (U) 2+ Negative [facility] Urobilinogen Auto test strip (U) [Mass/Vol]Ordered By: Tom Patel on 02-02-2023 Urobilinogen (U) [Mass/Vol] Normal mg/dL Normal [facility] Vitamin D+Metabolites [Mass/ volume] in Serum or PlasmaOrdered By: Tom Patel on 02-02-2023 Vitamin D+Metabolites [Mass/Vol] 54.2 ng/mL 30-100 [facility] Comment on above: VITAMIN D STATUS 25( [place])VITAMIN D RANGE (ng/mL) Deficient <20 Insufficient 20 to <30Sufficient 30 to 100Reference: Miri GORE,Nimisha MCLAIN, Luisa MCCRACKEN, et al. Evaluation,treatment, and prevention of vitamin D deficiency; an Endocrine Society clinical practice guideline. JCEM. 2010; 96(7):1911-30. WBC Auto (Bld) [#/Vol]Ordere d By: Tom Patel on 02-02-2023 WBC (Bld) [#/Vol] 7.6 10*3/uL 3.8-11.6 [facility] Yeast detection in urine sed iment by light microscopyOrdered By: Tom Patel on 02-02-2023 Yeast LM Ql (Urine sed) None seen [HPF] None Se en [facility] pH Auto test strip (U)Ordere d By: Tom Patel on 02-02-2023 pH (U) 6.0 [pH] 5.0-9.0 [facility] AMNISUREon 09-16-2022 AMNISURE Positive Abnormal NEGATIVE [facility] Comment on above: Performed By: #### A MNI #### [facility] [address] [place] [address] Dr. Adrianna Caldera CBC AUTO DIFFon 09-16-2022 BASO # 0.1 103/ul Normal 0.0-0.1 [facility] Comment on above: Performed By: #### C BC #### [facility] [address] [place] [address] Dr. Adrianna Caldera Basophils/100 WBC (Bld) 0.4 % Normal 0.2-2.0 [facility] Comment on above: Performed By: #### C BC #### [facility] [address] [place] [address] Dr. Adrianna Caldera EO # 0.0 103/ul Normal 0.0-0.7 [facility] Comment on above: Performed By: #### C BC #### [facility] [address] [place] [address] Dr. Adrianna Caldera Eosinophils/100 WBC (Bld) 0.1 % Critically low 0.9-7.0 [facility] Comment on above: Performed By: #### C BC #### [facility] [address] [place] [address] Dr. Adrianna Caldera Erythrocyte distribution width (RBC) [Ratio] 12.3 % Normal 11.0-15.0 [facility] Comment on above: Performed By: #### C BC #### [facility] [address] [place] [address] Dr. Adrianna Caldera Hematocrit (Bld) [Volume fraction] 38.3 % Normal 36.0-48.0 [facility] Comment on above: Performed By: #### C BC #### [facility] [address] [place] [address] Dr. Adrianna Caldera Hemoglobin (Bld) [Mass/Vol] 12.8 g/dL Normal 12.0-16.0 [facility] Comment on above: Performed By: #### C BC #### [facility] [address] [place] [address] Dr. Adrianna Caldera IG # 0.20 10e3/ul Critically high 0.00-0.03 [facility] Comment on above: Performed By: #### C BC #### [facility] Laboratory [address] [place] [address] Dr. Adrianna Caldera IG % 1.0 % Critically high 0.0-0.5 [facility] Comment on above: Performed By: #### C BC #### [facility] [address] [place] [address] Dr. Adrianna Caldera LYMPH # 1.5 103/ul Normal 1.2-3.8 [facility] Comment on above: Performed By: #### C BC #### [facility] [address] [place] [address] Dr. Adrianna Caldera Lymphocytes/100 WBC (Bld) 7.7 % Critically low 20.5-60.0 [facility] Comment on above: Performed By: #### C BC #### [facility] [address] [place] [address] Dr. Adrianna Caldera MANUAL DIFF REQ NO Normal [facility] Comment on above: Performed By: #### C BC #### [facility] [address] [place] [address] Dr. Adrianna Caldera MCH (RBC) [Entitic mass] 28.9 pg Normal 26.7-34.0 [facility] Comment on above: Performed By: #### C BC #### [facility] [address] [place] [address] Dr. Adrianna Caldera MCHC (RBC) [Mass/Vol] 33.4 g/dL Normal 29.9-35.2 [facility] Comment on above: Performed By: #### C BC #### [facility] [address] [place] [address] Dr. Adrianna Caldera MCV (RBC) [Entitic vol] 86.5 fL Normal 81.0-99.0 [facility] Comment on above: Performed By: #### C BC #### [facility] [address] [place] [address] Dr. Adrianna Caldera MONO # 0.3 103/ul Normal 0.3-0.8 [facility] Comment on above: Performed By: #### C BC #### [facility] [address] [place] [address] Dr. Adrianna Caldera Monocytes/100 WBC (Bld) 1.7 % Normal 1.7-12.0 [facility] Comment on above: Performed By: #### C BC #### [facility] [address] [place] [address] Dr. Adrianna Caldera NEUT # 17.5 103/ul Critically high 1.4-6.5 [facility] Comment on above: Performed By: #### C BC #### [facility] [address] [place] [address] Dr. Adrianna Caldera Neutrophils/100 WBC (Bld) 89.1 % Critically high 43.0-75.0 [facility] Comment on above: Performed By: #### C BC #### [facility] [address] [place] [address] Dr. Adrianna Caldera Platelet mean volume (Bld) [Entitic vol] 10.7 fL Normal 9.5-13.5 [facility] Comment on above: Performed By: #### C BC #### [facility] [address] [place] [address] Dr. Adrianna Caldera PLT 356 103/ul Normal 150-450 [facility] Comment on above: Performed By: #### C BC #### [facility] [address] [place] [address] Dr. Adrianna Caldera RBC 4.43 106/ul Normal 4.20-5.40 [facility] Comment on above: Performed By: #### C BC #### [facility] [address] [address] [address] Adrianna Caldera WBC 19.6 103/ul Critically high 4.0-11.0 [facility] Comment on above: Performed By: #### C BC #### [facility] [address] [place] [address] Dr. Adrianna Caldera UA (CLEAN/CATCH) LEGAL REFEREE/MICRO I F IND.on 09-16-2022 Bilirubin Ql (U) Negative Normal NEGATIVE [facility] Comment on above: Performed By: #### U ACSIND #### [facility] [address] [place] [address] Dr. Adrianna Caldera Clarity (U) CLEAR Normal CLEAR [facility] Comment on above: Performed By: #### U ACSIND #### [facility] [address] [place] [address] Dr. Adrianna Caldera Color (U) LT. YELLOW Normal YELLOW [facility] Comment on above: Performed By: #### U ACSIND #### [facility] [address] [place] [address] Dr. Adrianna Caldera Glucose Ql (U) Negative Normal NEGATIVE [facility] Comment on above: Performed By: #### U ACSIND #### [facility] [address] [address] [address] Adrianna Caldera Hemoglobin Ql (U) Negative Normal NEGATIVE [facility] Comment on above: Performed By: #### U ACSIND #### [facility] [address] [address] [address] Adrianna Caldera Ketones Ql (U) Negative Normal NEGATIVE [facility] Comment on above: Performed By: #### U ACSIND #### [facility] [address] [place] [address] Dr. Adrianna Caldera LEUKOCYTES Negative Normal NEGATIVE [facility] Comment on above: Performed By: #### U ACSIND #### [facility] [address] [place] [address] Dr. Adrianna Caldera Nitrite Ql (U) Negative Normal NEGATIVE [facility] Comment on above: Performed By: #### U ACSIND #### [facility] [address] [address] [address] Adrianna Caldera pH (U) 5.5 [pH] Normal 5-9 [facility] Comment on above: Performed By: #### U ACSIND #### [facility] [address] [place] [address] Dr. Adrianna Caldera SPEC GRAVITY 1.010 Normal 1.005-<=1.0 25 [facility] Comment on above: Performed By: #### U ACSIND #### [facility] [address] [address] [address] Adrianna Caldera UA PROTEIN Negative Normal NEGATIVE/ TRACE [facility] Comment on above: Performed By: #### U ACSIND #### [facility] [address] [place] [address] Dr. Adrianna Caldera UR MICRO IND NOT INDICATED Normal [facility] Comment on above: Performed By: #### U ACSIND #### [facility] [address] [place] [address] Dr. Adrianna Caldera Urobilinogen Qn (U) 0.2 {Micheal'U}/dL Normal 0.2 - 1. 0 [facility] Comment on above: Performed By: #### U ACSIND #### [facility] [address] [place] [address] Dr. Adrianna Caldrea US PREG GROWTHon 09-16-2022 US PREG GROWTH [...] KAROL SIDDIQUI Date: 2022-09-16 15:19 Normal [facility] UA (CLEAN/CATCH) LEGAL REFEREE/MICRO I F IND.on 09-04-2022 Bilirubin Ql (U) Negative Normal NEGATIVE [facility] Comment on above: Performed By: #### U ACSIND ####[facility] [address] [place], [place] [address]Dr. Adrianna Caldera Clarity (U) CLEAR Normal CLEAR [facility] Comment on above: Performed By: #### U ACSIND ####[facility] [address] [place], [place] [address]Dr. Jemimalan Caldera Color (U) LT. YELLOW Normal YELLOW [facility] Comment on above: Performed By: #### U ACSIND ####[facility] [address] [place], [place] [address]Dr. Adrianna Caldera Glucose Ql (U) Negative Normal NEGATIVE [facility] Comment on above: Performed By: #### U ACSIND ####[facility] [address] [place], [place] [address]Dr. Yilan Caldera Hemoglobin Ql (U) Negative Normal NEGATIVE [facility] Comment on above: Performed By: #### U ACSIND ####[facility] [address] [place], [place] [address]Dr. Adrianna Caldera Ketones Ql (U) Negative Normal NEGATIVE [facility] Comment on above: Performed By: #### U ACSIND ####[facility] [address] [place], [place] [address]Dr. Jemimalan Caldera LEUKOCYTES Negative Normal NEGATIVE [facility] Comment on above: Performed By: #### U ACSIND ####[facility] [address] [place], [place] [address]Dr. Yilan Caldera Nitrite Ql (U) Negative Normal NEGATIVE [facility] Comment on above: Performed By: #### U ACSIND ####[facility] [address] [place], [place] [address]Dr. Adrianna Caldera pH (U) 7.5 [pH] Normal 5-9 [facility] Comment on above: Performed By: #### U ACSIND ####[facility] [address] [address]Dr. Adrianna Caldera SPEC GRAVITY 1.010 Normal 1.005-<=1.0 25 [facility] Comment on above: Performed By: #### U ACSIND ####[facility] [address] [address]Dr. Adrianna Werner UA PROTEIN Negative Normal NEGATIVE/ TRACE [facility] Comment on above: Performed By: #### U ACSIND ####[facility] [address] [address]Dr. Adrianna Werner UR MICRO IND NOT INDICATED Normal [facility] Comment on above: Performed By: #### U ACSIND ####[facility] [address] [address]Dr. Adrianna Werner Urobilinogen Qn (U) 0.2 {Micheal'U}/dL Normal 0.2 - 1. 0 [facility] Comment on above: Performed By: #### U ACSIND ####[facility] [address] [address]Dr. Adrianna Werner GTT 3 HR PREGon 08-30-2022 Glucose [Mass/Vol] 88 mg/dL Normal 74-106 [facility] Comment on above: Performed By: #### G TT3P ####[facility] [address] [address]Dr. Adrianna Caldera Glucose [Mass/Vol] 167 mg/dL Normal [facility] Comment on above: Performed By: #### G TT3P ####[facility] [address] [address]Dr. Adrianna Caldera Glucose [Mass/Vol] 136 mg/dL Normal [facility] Comment on above: Performed By: #### G TT3P ####[facility] [address] [address]Dr. Adrianna Caldera Glucose [Mass/Vol] 144 mg/dL Normal [facility] Comment on above: Performed By: #### G TT3P ####[facility] [address] [place], [place] [address]Dr. Adrianna Caldera US PREG PLACENTAon 3 US [...] KAROL SIDDIQUI Date: 2022-08-17 15:46 Normal [facility] UA (CLEAN/CATCH) LEGAL REFEREE/MICRO I F IND.on 07-21-2022 Bilirubin Ql (U) Negative Normal NEGATIVE [facility] Comment on above: Performed By: #### U ACSIND ####[facility] [address] [place], [place] [address]Dr. Adrianna Caldera Clarity (U) CLEAR Normal CLEAR [facility] Comment on above: Performed By: #### U ACSIND ####[facility] [address] [place], [place] [address]Dr. Adrianna Caldera Color (U) LT. YELLOW Normal YELLOW [facility] Comment on above: Performed By: #### U ACSIND ####[facility] [address] [place], [place] [address]Dr. Adrianna Caldera Glucose Ql (U) Negative Normal NEGATIVE [facility] Comment on above: Performed By: #### U ACSIND ####[facility] [address] [place], [place] [address]Dr. Adrianna Caldera Hemoglobin Ql (U) Negative Normal NEGATIVE [facility] Comment on above: Performed By: #### U ACSIND ####[facility] [address] [place], [place] [address]Dr. Adrianna Caldera Ketones Ql (U) Negative Normal NEGATIVE [facility] Comment on above: Performed By: #### U ACSIND ####[facility] [address] [place], [place] [address]Dr. Adrianna Caldera LEUKOCYTES Negative Normal NEGATIVE [facility] Comment on above: Performed By: #### U ACSIND ####[facility] [address] [address]Dr. Adrianna Caldera Nitrite Ql (U) Negative Normal NEGATIVE [facility] Comment on above: Performed By: #### U ACSIND ####[facility] [address] [address]Dr. Adrianna Caldera pH (U) 7.0 [pH] Normal 5-9 [facility] Comment on above: Performed By: #### U ACSIND ####[facility] [address] [place], [place] [address]Dr. Adrianna Caldera SPEC GRAVITY 1.010 Normal 1.005-<=1.0 25 [facility] Comment on above: Performed By: #### U ACSIND ####[facility] [address] [place], [place] [address]Dr. Adrianna Werner UA PROTEIN Negative Normal NEGATIVE/ TRACE The [facility] Comment on above: Performed By: #### U ACSIND ####[facility] [address] [place], [place] [address]Dr. Adrianna Werner UR MICRO IND NOT INDICATED Normal [facility] Comment on above: Performed By: #### U ACSIND ####[facility] [address] [address]Dr. Adrianna Werner Urobilinogen Qn (U) 0.2 {Micheal'U}/dL Normal 0.2 - 1. 0 [facility] Comment on above: Performed By: #### U ACSIND ####[facility] [address] [place], [place] [address]Dr. Adrianna Caldera US PREG ANATOMY SINGLEon US [...] by: KAROL SIDDIQUI Date: 2022-07-21 16:41 Normal [facility] PAP ACOG PANEL 2: 21 to 31on 07-12-2022 . . Normal [facility] Comment on above: Performed By: #### [id number] ####[facility] [address] [address]DrAung Caldera Age Gdln ACOG Testing 21-29 Normal [facility] Comment on above: Performed By: #### [id number] ####[facility] [address] [address]DrAung Caldera DIAGNOSIS: Comment Normal [facility] Comment on above: Result Comment: NEGA TIVE FOR INTRAEPITHELIAL LESION OR MALIGNANCY. Performed By: #### [id number] ####[facility] [address] [address]DrAung Caldera Methodology: Comment Normal [facility] Comment on above: Result Comment: This liquid based ThinPrep(R) pap test was screened with the use of an image guided system. Performed By: #### [id number] ####[facility] [address] [place], [place] [address]Dr. Adrianna Caldera Note: Comment Normal [facility] Comment on above: Result Comment: The Pap smear is a screening test designed to aid in the detection of premalignant and malignant conditions of the uterine cervix. It is not a diagnostic procedure and should not be used as the sole means of detecting cervical cancer. Both false-positive and false-negative reports do occur. . Performed By: #### [id number] ####[facility] [address] [place], [place] [address]Dr. Adrianna Caldera Performed by: Comment Normal [facility] Comment on above: Result Comment: [place] Yin, Certified Technician Specialist (ASCP) Performed By: #### 4 [id number] ####[facility] [address] [place], [place] [address]Dr. Adrianna Caldera Reflex Criteria: Comment Normal [facility] Comment on above: Result Comment: The HPV DNA reflex criteria were not met with this specimen result therefore, no HPV testing was performed. . Performed By: #### [id number] ####[facility] [address] [place], [place] [address]Dr. Adrianna Caldera Specimen adequacy: Comment Normal [facility] Comment on above: Result Comment: Sati sfactory for evaluation. No endocervical component is identified. Performed By: #### [id number] ####[facility] [address] [place], [place] [address]Dr. Adrianna Caldera CHLAMYDIA/GONOCOCCUS ALEKSANDER (SW AB/URINE/PAPon 07-07-2022 Chlamydia trachomatis, ALEKSANDER Negative Normal Negative [facility] Comment on above: Performed By: #### C T/NGNA ####[facility] [address] [place], [place] [address]Dr. Adrianna Caldera Neisseria gonorrhoeae, ALEKSANDER Negative Normal Negative [facility] Comment on above: Performed By: #### C T/NGNA ####[facility] [address] [place], [place] [address]Dr. Adrianna Caldera VAGINITIS/VAGINOSIS DNA PROB Scott 07-07-2022 Sherley species Negative Normal Negative [facility] Comment on above: Performed By: #### U ACSIND #### [facility] [address] [address] [address] Adrianna Caldera Gardnerella vaginalis Negative Normal Negative [facility] Comment on above: Performed By: #### U ACSIND #### [facility] [address] [address] [address] Adrianna Caldera Trichomonas vaginalis Negative Normal Negative [facility] Comment on above: Performed By: #### U ACSIND #### [facility] [address] [address] [address] Adrianna Caldera ABO/RHon 06-30-2022 ABO/Rh Negative [facility] CBC with Auto Differentialon 06-30-2022 Absolute Eos # 0.06 [facility] Absolute Immature Granulocyte 0.07 [facility] Absolute Lymph # 2.91 [facility] Absolute Ritchie # 0.66 [facility] Basophils (Bld) [#/Vol] 0.04 10*3/uL [facility] Basophils/100 WBC (Bld) 0 % 0 - 2 % B [facility] Eosinophils/100 WBC (Bld) 1 % 1 - 4 % [facility] Hematocrit (Bld) [Volume fraction] 35.2 % Low 36.3 - 47.1 % [facility] Hemoglobin (Bld) [Mass/Vol] 11.9 g/dL 11.9 - 15.1 g/dL [facility] Immature granulocytes/100 WBC (Bld) 1 % High 0 [facility] Interpretation and review of laboratory results Abnormal [facility] Lymphocytes/100 WBC (Bld) 24 % 24 - 43 % [facility] MCH (RBC) [Entitic mass] 30.7 pg 25.2 - 33.5 pg [facility] MCHC (RBC) [Mass/Vol] 33.8 g/dL 28.4 - 34.8 g/dL [facility] MCV (RBC) [Entitic vol] 91.0 fL 82.6 - 102.9 fL [facility] Monocytes/100 WBC (Bld) 5 % 3 - 12 % [facility] NRBC Automated 0.0 0.0 per 100 WBC [facility] Platelet distribution width (Bld) [Ratio] 12.2 % 11.8 - 14.4 % [facility] Platelet mean volume (Bld) [Entitic vol] 10.5 fL 8.1 - 13.5 fL [facility] Platelets (Bld) [#/Vol] 301 10*3/uL [facility] RBC (Bld) [#/Vol] 3.87 10*6/uL Low 3.95 - 5.1 1 m/uL [facility] Segmented neutrophils/100 WBC (Bld) 69 % High 36 - 65 % [facility] Segs Absolute 8.40 High [facility] WBC (Bld) [#/Vol] 12.1 10*3/uL High [facility] CMPon 06-30-2022 Albumin [Mass/Vol] 3.6 g/dL 3.5 - 5.2 g/dL [facility] Albumin/Globulin [Mass ratio] 1.1 {ratio} 1.0 - 2.5 [facility] ALP [Catalytic activity/Vol] 74 U/L 35 - 104 U/L [facility] ALT [Catalytic activity/Vol] 9 U/L 5 - 33 U/L [facility] Anion gap [Moles/Vol] 13 mmol/L 9 - 17 mmol/L [facility] AST [Catalytic activity/Vol] 18 U/L NINF - 32 U/L [facility] Bilirubin [Mass/Vol] mg/dL Low 0.3 - 1 .2 mg/dL [facility] Calcium [Mass/Vol] 9.5 mg/dL 8.6 - 10. 4 mg/dL [facility] Chloride [Moles/Vol] 101 mmol/L 98 - 10 7 mmol/L [facility] CO2 [Moles/Vol] 21 mmol/L 20 - 31 mmol/L [facility] Creatinine [Mass/Vol] 0.55 mg/dL 0.50 - 0.90 mg/dL [facility] GFR/1.73 sq M.predicted MDRD (S/P/Bld) [Vol rate/Area] - PINF [facility] Comment on above: These results are [...] [Mass/Vol] 84 mg/dL 70 - 99 mg/dL [facility] Interpretation and review of laboratory results Abnormal [facility] Potassium [Moles/Vol] 3.8 mmol/L 3.7 - 5.3 mmol/L [facility] Protein [Mass/Vol] 6.9 g/dL 6.4 - 8.3 g/dL [facility] Sodium [Moles/Vol] 135 mmol/L 135 - 144 mmol/L [facility] Urea nitrogen [Mass/Vol] 8 mg/dL 6 - 20 mg/dL [facility] Urea nitrogen/Creatinine (Bld) [Mass ratio] 15 9 - 20 [facility] Lipaseon 06-30-2022 Lipase [Catalytic activity/Vol] 30 U/L 13 - 60 U/L [facility] Microscopic Urinalysison Bacteria, UA 2+ Abnormal None [facility] Epithelial Cells UA 0 TO 2 [facility] Interpretation and review of laboratory results Abnormal [facility] Mucus, UA 3+ Abnormal None [facility] RBC clumps Auto (Urine sed) [#/Area] 0 TO 2 [facility] WBC, UA 0 TO 2 [facility] Protime-INRon 06-30-2022 INR Coag (PPP) [Relative time] 1.0 {INR} [facility] Comment on above: Therapeutic Range: Moderate Anticoagulant Intensity: INR = 2.0-3.0 High Anticoagulant Intensity: INR = 2.5-3.5 PT Coag (PPP) [Time] 13.3 s [facility] Urinalysis with Reflex to Cu ltureon 06-30-2022 Bilirubin Urine Negative NEGATIVE [facility] Lakoo Color, UA Yellow Yellow [facility] Glucose Auto test strip (U) [Mass/Vol] Negative NEGATIVE [facility] Interpretation and review of laboratory results Abnormal [facility] Ketones (U) [Mass/Vol] Negative NEGATIVE [facility] Leukocyte esterase Auto test strip Ql (U) Negative NEGATIVE [facility] Nitrite Auto test strip Ql (U) Negative NEGATIVE [facility] Protein (U) [Mass/Vol] 6.0 mg/dL 5.0 - 9.0 [facility] Protein (U) [Mass/Vol] Negative NEGATIVE [facility] Specific Cataldo, UA 1.025 High 1.010 - 1.020 [facility] Turbidity UA Clear Clear [facility] Urine Hgb Negative NEGATIVE [facility] Urobilinogen, Urine Normal Normal [facility] No Panel Informationon 06-17 Body mass index (BMI) [Percentile] Per age and sex 0.1 {percentile} Invalid Interpretation Code [employer] [id number] Per age and sex 0.1 {percentile} Invalid Interpretation Code [employer] HEP B SURFACE ANTIGEN SCREEN on 06-08-2022 HBsAg Screen Negative Normal Negative [facility] Comment on above: Performed By: #### U ACSIND #### [facility] [address] [address] [address] Adrianna Caldera HEPATITIS C VIRUS AB W/ REFL EX QUANTon 06-08-2022 HCV AB <0.1 Normal 0.0-0.9 [facility] Comment on above: Performed By: #### U ACSIND #### [facility] [address] [address] [address] Adrianna Caldera Interpretation: Comment Normal [facility] Comment on above: Result Comment: Nega tive Not infected with HCV, unless recent infection is suspected or other evidence exists to indicate HCV infection. Performed By: #### U ACSIND #### [facility] [address] [address] [address] Adrianna Caldera HIV 1 AND 2 WITH REFLEXon HIV Screen 4th Generation wRfx Non-Reactive Normal Non Reactive [facility] Comment on above: Result Comment: HIV Negative HIV-1/HIV-2 antibodies and HIV-1 p24 antigen were NOT detected. There is no laboratory evidence of HIV infection. Performed By: #### U ACSIND #### [facility] [address] [address] [address] Adrianna Caldera RPR QUANTon 06-08-2022 Rapid Plasma Reagin, Quant Non-Reactive Normal NonRea<1:1 [facility] Comment on above: Result [...] utilized, such as Treponema pallidum (Syphilis) Screening [place] (381851) or Rapid Plasma Reagin (RPR) Test With Reflex to Quantitative RPR and Confirmatory Treponema pallidum Antibodies (613226). Performed By: #### U ACSIND #### [facility] [address] [address] [address] Adrianna Caldera RUBELLA AB IGGon 06-08-2022 Rubella Antibodies, IgG 4.69 index Normal Immu ne >0.99 [facility] Comment on above: Result Comment: Non- immune <0.90 Equivocal 0.90 - 0.99 Immune >0.99 Performed By: #### R UBIGG ####[facility] [id number] [id number] Adrianna Caldera CBC AUTO DIFFon 06-05-2022 BASO # 0.0 103/ul Normal 0.0-0.1 [facility] Comment on above: Performed By: #### C BC #### [facility] [address] [place] [address] Dr. Adrianna Caldera Basophils/100 WBC (Bld) 0.3 % Normal 0.2-2.0 [facility] [place] [facility] Comment on above: Performed By: #### C BC #### [facility] [address] [place] [address] Dr. Adrianna Caldera EO # 0.1 103/ul Normal 0.0-0.7 [facility] Comment on above: Performed By: #### C BC #### [facility] [address] [place] [address] Dr. Adrianna Caldera Eosinophils/100 WBC (Bld) 0.6 % Critically low 0.9-7.0 [facility] Comment on above: Performed By: #### C BC #### [facility] [address] [place] [address] Dr. Adrianna Caldera Erythrocyte distribution width (RBC) [Ratio] 11.7 % Normal 11.0-15.0 [facility] Comment on above: Performed By: #### C BC #### [facility] [address] [place] [address] Dr. Adrianna Caldera Hematocrit (Bld) [Volume fraction] 33.8 % Critically low 36.0-48.0 [facility] Comment on above: Performed By: #### C BC #### [facility] [address] [place] [address] Dr. Adrianna Caldera Hemoglobin (Bld) [Mass/Vol] 12.6 g/dL Normal 12.0-16.0 [facility] Comment on above: Performed By: #### C BC #### [facility] [address] [place] [address] Dr. Adrianna Caldera IG # 0.05 10e3/ul Critically high 0.00-0.03 [facility] Comment on above: Performed By: #### C BC #### [facility] [address] [place] [address] Dr. Adrianna Caldera IG % 0.4 % Normal 0.0-0.5 [facility] Comment on above: Performed By: #### C BC #### [facility] [address] [place] [address] Dr. Adrianna Caldera LYMPH # 2.4 103/ul Normal 1.2-3.8 [facility] Comment on above: Performed By: #### C BC #### [facility] [address] [place] [address] Dr. Adrianna Caldera Lymphocytes/100 WBC (Bld) 21.1 % Normal 20.5-60.0 [facility] Comment on above: Performed By: #### C BC #### [facility] [address] [place] [address] Dr. Adrianna Caldera MANUAL DIFF REQ NO Normal [facility] Comment on above: Performed By: #### C BC #### [facility] [address] [place] [address] Dr. Adrianna Caldera MCH (RBC) [Entitic mass] 30.3 pg Normal 26.7-34.0 [facility] Comment on above: Performed By: #### C BC #### [facility] [address] [place] [address] Dr. Adrianna Caldera MCHC (RBC) [Mass/Vol] 37.3 g/dL Critically high 29.9-35.2 [facility] Comment on above: Performed By: #### C BC #### [facility] [address] [place] [address] Dr. Adrianna Caldera MCV (RBC) [Entitic vol] 81.3 fL Normal 81.0-99.0 [facility] [place] [facility] Comment on above: Performed By: #### C BC #### [facility] [address] [place] [address] Dr. Adrianna Caldera MONO # 0.6 103/ul Normal 0.3-0.8 [facility] Comment on above: Performed By: #### C BC #### [facility] [address] [place] [address] Dr. Adrianna Caldera Monocytes/100 WBC (Bld) 5.4 % Normal 1.7-12.0 [facility] [place] [facility] Comment on above: Performed By: #### C BC #### [facility] [address] [place] [address] Dr. Adrianna Caldera NEUT # 8.3 103/ul Critically high 1.4-6.[address] [facility] Comment on above: Performed By: #### C BC #### [facility] [address] [address] [address] Adrianna Caldera Neutrophils/100 WBC (Bld) 72.2 % Normal 43.0-75.0 [facility] Comment on above: Performed By: #### C BC #### [facility] [address] [address] [address] Adrianna Caldera Platelet mean volume (Bld) [Entitic vol] 10.6 fL Normal 9.5-13.5 [facility] Comment on above: Performed By: #### C BC #### [facility] [address] [address] [address] Adrianna Caldera PLT 253 103/ul Normal 150-450 [facility] Comment on above: Performed By: #### C BC #### [facility] [address] [address] [address] Adrianna Caldera RBC 4.16 106/ul Critically low 4.20-5.[address] [facility] Comment on above: Performed By: #### C BC #### [facility] [address] [address] [address] Adrianna Caldera WBC 11.6 103/ul Critically high 4.0-11.0 [facility] Comment on above: Performed By: #### C BC #### [facility] [address] [address] [address] Adrianna Caldera CULTURE URINEon 06-05-2022 CULTURE URINE Culture Observations: LIGHT GROWTH OF MIXED GENITAL JIGAR. NO POTENTIAL PATHOGENS SEEN. Normal [facility] Comment on above: Performed By: #### U RCX ####[facility] [address] [address]. Adrianna Caldera GLYCOHEMOGLOBIN A1Con 2022 ADA RECOMMENDATION SEE BELOW Normal [facility] Comment on above: Result Comment: ADA RECOMMENDED LIMIT 4.0 - 6.0 ADA THERAPEUTIC TARGET < 7.0 ACTION SUGGESTED > 7.0 Performed By: #### P REGQNT #### [facility] [address] [place], [place] [address] Dr. Adrianna Caldera Glucose [Mass/Vol] 105 mg/dL Normal [facility] Comment on above: Performed By: #### P REGQNT #### [facility] [address] [place], [place] [address] Dr. Adrianna Caldera HbA1c (Bld) [Mass fraction] 5.3 % Normal 4.5-6.2 [facility] Comment on above: Performed By: #### P REGQNT #### [facility] [address] [place], [place] [address] Dr. Adrianna Caldera TYPE AND SCREENon 06-05-2022 TYPE AND SCREEN Negative Normal [facility] Comment on above: Performed By: #### T NS ####[facility] [id number] [place], [place] [address]FpDr. Adrianna Caldera US PREG <14 WKSon 05-27-2022 [...] measures 3.5 cm. Closed. Electronically authenticated by: ARIN OCAMPOING Date: 2022-05-26 22:31 Normal [facility] CBC AUTO DIFFon 05-26-2022 BASO # 0.1 103/ul Normal 0.0-0.1 [facility] Comment on above: Performed By: #### U ACSIND #### [facility] [address] [address] [address] Adrianna Caldera Basophils/100 WBC (Bld) 0.5 % Normal 0.2-2.0 [facility] [place] [facility] Comment on above: Performed By: #### U ACSIND #### [facility] [address] [place] [address] Dr. Adrianna Caldera EO # 0.1 103/ul Normal 0.0-0.7 [facility] Comment on above: Performed By: #### U ACSIND #### [facility] [address] [address] [address] Adrianna Caldera Eosinophils/100 WBC (Bld) 0.5 % Critically low 0.9-7.0 [facility] Comment on above: Performed By: #### U ACSIND #### [facility] [address] [place] [address] Dr. Adrianna Caldera Erythrocyte distribution width (RBC) [Ratio] 11.9 % Normal 11.0-15.0 [facility] Comment on above: Performed By: #### U ACSIND #### [facility] [address] [place] [address] Dr. Adrianna Caldera Hematocrit (Bld) [Volume fraction] 37.5 % Normal 36.0-48.0 [facility] Comment on above: Performed By: #### U ACSIND #### [facility] [address] [address] [address] Adrianna Caldera Hemoglobin (Bld) [Mass/Vol] 12.8 g/dL Normal 12.0-16.0 [facility] Comment on above: Performed By: #### U ACSIND #### [facility] [address] [address] [address] Adrianna Caldera IG # 0.04 10e3/ul Critically high 0.00-0.03 [facility] Comment on above: Performed By: #### U ACSIND #### [facility] [address] [address] [address] Adrianna Caldera IG % 0.4 % Normal 0.0-0.5 [facility] Comment on above: Performed By: #### U ACSIND #### [facility] [address] [address] [address] Adrianna Caldera LYMPH # 3.0 103/ul Normal 1.2-3.8 [facility] Comment on above: Performed By: #### U ACSIND #### [facility] [address] [place] [address] Dr. Adrianna Caldera Lymphocytes/100 WBC (Bld) 27.0 % Normal 20.5-60.0 [facility] Comment on above: Performed By: #### U ACSIND #### [facility] [address] [place] [address] Dr. Adrianna Caldera MANUAL DIFF REQ NO Normal [facility] Comment on above: Performed By: #### U ACSIND #### [facility] [address] [place] [address] Dr. Adrianna Caldera MCH (RBC) [Entitic mass] 29.8 pg Normal 26.7-34.0 [facility] Comment on above: Performed By: #### U ACSIND #### [facility] [address] [address] [address] Adrianna Caldera MCHC (RBC) [Mass/Vol] 34.1 g/dL Normal 29.9-35.2 [facility] Comment on above: Performed By: #### U ACSIND #### [facility] [address] [place] [address] Dr. Adrianna Caldera MCV (RBC) [Entitic vol] 87.4 fL Normal 81.0-99.0 [facility] [place] [facility] Comment on above: Performed By: #### U ACSIND #### [facility] [address] [place], [place] [id number] Dr. Adrianna Caldera MONO # 0.7 103/ul Normal 0.3-0.8 [facility] Comment on above: Performed By: #### U ACSIND #### [facility] [address] [place] [address] Dr. Adrianna Caldera Monocytes/100 WBC (Bld) 6.3 % Normal 1.7-12.0 [facility] [place] [facility] Comment on above: Performed By: #### U ACSIND #### [facility] [address] [place] [address] Dr. Adrianna Caldera NEUT # 7.2 103/ul Critically high 1.4-6.5 [facility] Comment on above: Performed By: #### U ACSIND #### [facility] [address] [place] [address] Dr. Adrianna Caldera Neutrophils/100 WBC (Bld) 65.3 % Normal 43.0-75.0 [facility] Comment on above: Performed By: #### U ACSIND #### [facility] [address] [place] [address] Dr. Adrianna Caldera Platelet mean volume (Bld) [Entitic vol] 10.3 fL Normal 9.5-13.5 [facility] Comment on above: Performed By: #### U ACSIND #### [facility] [address] [place] [address] Dr. Adrianna Caldera PLT 316 103/ul Normal 150-450 [facility] Comment on above: Performed By: #### U ACSIND #### [facility] [address] [place] [address] Dr. Adrianna Caldera RBC 4.29 106/ul Normal 4.20-5.40 [facility] Comment on above: Performed By: #### U ACSIND #### [facility] [address] [place] [address] Dr. Adrianna Caldera WBC 11.0 103/ul Normal 4.0-11.0 [facility] Comment on above: Performed By: #### U ACSIND #### [facility] [address] [place] [address] ABD/PELV W CONon [...] ISIDRO AVILA Date: 2022-05-26 19:39 Normal [facility] Covid-19 PCR (CVDTB)on 04-30 SARS-CoV-2 (COVID-19) RNA ALEKSANDER+probe Ql (Unsp spec) Not detected Normal NOT DETECTED [facility] Comment on above: Result Comment: When diagnostic [...] for this test is supported by the Head Custodian of Health and Human Service's declaration that [...] used). Performed By: #### U ACSIND #### [facility] [address] [place] [address] Dr. Adrianna Caldera ER URINE PROFILEon 2 Bilirubin Ql (U) Negative Normal NEGATIVE [facility] Comment on above: Performed By: #### P REGQNT #### [facility] [address] [place] [address] Dr. Adrianna Caldera Clarity (U) CLEAR Normal CLEAR [facility] Comment on above: Performed By: #### P REGQNT #### [facility] [address] [place] [address] Dr. Adrianna Caldera Color (U) YELLOW Normal YELLOW [facility] Comment on above: Performed By: #### P REGQNT #### [facility] [address] [place] [address] Dr. Adrianna Caldera ERUAHD A micrscopic examination will be performed if indicated. Normal [facility] Comment on above: Performed By: #### P REGQNT #### [facility] [address] [place] [address] Dr. Adrianna Caldera Glucose Ql (U) Negative Normal NEGATIVE [facility] Comment on above: Performed By: #### P REGQNT #### [facility] [address] [address] [address] Adrianna Caldera Hemoglobin Ql (U) Negative Normal NEGATIVE [facility] Comment on above: Performed By: #### P REGQNT #### [facility] [address] [place] [address] Dr. Adrianna Caldera Ketones Ql (U) 15 mg/dl Abnormal NEGATIVE [facility] Comment on above: Performed By: #### P REGQNT #### [facility] [address] [place] [address] Dr. Adrianna Caldera LEUKOCYTES Negative Normal NEGATIVE [facility] Comment on above: Performed By: #### P REGQNT #### [facility] [address] [place] [address] Dr. Adrianna Caldera Nitrite Ql (U) Negative Normal NEGATIVE [facility] Comment on above: Performed By: #### P REGQNT #### [facility] [address] [place] [address] Dr. Adrianna Caldera pH (U) 7.5 [pH] Normal 5-9 [facility] Comment on above: Performed By: #### P REGQNT #### [facility] [address] [place] [address] Dr. Adrianna Caldrea SPEC GRAVITY 1.020 Normal 1.005-<=1.0 25 [facility] Comment on above: Performed By: #### P REGQNT #### [facility] [address] [place] [address] Dr. Adrianna Caldera UA PROTEIN Negative Normal NEGATIVE/ TRACE [facility] Comment on above: Performed By: #### P REGQNT #### [facility] [address] [place] [address] Dr. Adrianna Caldera UR MICRO IND NOT INDICATED Normal [facility] Comment on above: Performed By: #### P REGQNT #### [facility] [address] [place] [address] Dr. Adrianna Caldera Urobilinogen Qn (U) 0.2 {Micheal'U}/dL Normal 0.2 - 1. 0 [facility] Comment on above: Performed By: #### P REGQNT #### [facility] [address] [place] [address] Dr. Adrianna Caldera LIPASEon 05-26-2022 Lipase [Catalytic activity/Vol] 116.0 U/L Normal 73.0-393.0 [facility] Comment on above: Performed By: #### L IPA, CMP #### [facility] [address] [place] [address] Dr. Adrianna Caldera PROF 14(COMP METB)on 022 Albumin [Mass/Vol] 3.6 g/dL Normal 3.4-5.0 [facility] Comment on above: Performed By: #### L IPA, CMP #### [facility] [address] [address] [address] Adrianna Caldera Albumin/Globulin [Mass ratio] 0.9 {ratio} Normal [facility] Comment on above: Performed By: #### L IPA, CMP #### [facility] [address] [address] [address] Adrianna Caldera ALP [Catalytic activity/Vol] 57 U/L Normal 46-116 [facility] Comment on above: Performed By: #### L IPA, CMP #### [facility] [address] [address] [address] Adrianna Caldera ALT [Catalytic activity/Vol] 13 U/L Critically low 14-59 [facility] Comment on above: Performed By: #### L IPA, CMP #### [facility] [address] [address] [address] Adrianna Caldera Anion gap [Moles/Vol] 10.6 mmol/L Normal [facility] Comment on above: Performed By: #### L IPA, CMP #### [facility] [address] [address] [address] Adrianna Caldera AST [Catalytic activity/Vol] 12 U/L Critically low 15-37 [facility] Comment on above: Performed By: #### L IPA, CMP #### [facility] [address] [address] [address] Adrianna Caldera Bilirubin [Mass/Vol] 0.2 mg/dL Normal 0.2-1.0 [facility] Comment on above: Performed By: #### L IPA, CMP #### [facility] [address] [address] [address] Adrianna Caldera Calcium [Mass/Vol] 8.9 mg/dL Normal 8.5-10.1 [facility] Comment on above: Performed By: #### L IPA, CMP #### [facility] [address] [address] [address] Adrianna Caldera Chloride [Moles/Vol] 102 mmol/L Normal 98-107 [facility] Comment on above: Performed By: #### L IPA, CMP #### [facility] [address] [address] [address] Adrianna Caldera CO2 [Moles/Vol] 26.0 mmol/L Normal 21.0-32.0 [facility] Comment on above: Performed By: #### L IPA, CMP #### [facility] [address] [address] [address] Adrianna Caldera Creatinine [Mass/Vol] 0.61 mg/dL Normal 0.55-1.02 [facility] Comment on above: Performed By: #### L IPA, CMP #### [facility] [address] [address] [address] Adrianna Caldera EGFR-AF MARSHALLESE >60 Normal >=60 [facility] Comment on above: Performed By: #### L IPA, CMP #### [facility] [address] [address] [address] Adrianna Caldera EGFR-NON AF MARSHALLESE >60 Normal >=60 [facility] Comment on above: Performed By: #### L IPA, CMP #### [facility] [address] [address] [address] Adrianna Caldera Globulin (S) [Mass/Vol] 3.8 g/dL Normal [facility] Comment on above: Performed By: #### L IPA, CMP #### [facility] [address] [place] [address] Dr. Adrianna Caldera Glucose [Mass/Vol] 82 mg/dL Normal 74-106 [facility] Comment on above: Performed By: #### L IPA, CMP #### [facility] [address] [address] [address] Adrianna Caldera Potassium [Moles/Vol] 3.6 mmol/L Normal 3.5-5.1 [facility] Comment on above: Performed By: #### L IPA, CMP #### [facility] [facility] [address] [address] [address] Adrianna Caldera Protein [Mass/Vol] 7.4 g/dL Normal 6.4-8.2 [facility] Comment on above: Performed By: #### L IPA, CMP #### [facility] [address] [address] [address] Adrianna Caldera Sodium [Moles/Vol] 135 mmol/L Critically low 136-145 Th e [facility] Comment on above: Performed By: #### L IPA, CMP #### [facility] [address] [address] [address] Adrianna Caldera Urea nitrogen [Mass/Vol] 9.0 mg/dL Normal 7.0-18.0 [facility] Comment on above: Performed By: #### L IPA, CMP #### [facility] [address] [address] [address] Adrianna Caldera Urea nitrogen/Creatinine [Mass ratio] 14.8 mg/mg Normal [facility] Comment on above: Performed By: #### L IPA, CMP #### [facility] [address] [address] [address] Adrianna Caldera No Panel Informationon 05-17 Body mass index (BMI) [Percentile] Per age and sex 0.1 {percentile} Invalid Interpretation Code [employer] [id number] Per age and sex 0.1 {percentile} Invalid Interpretation Code [employer] US PREG TVon 05-01-2022 US PREG TV [...] by: KAROL SIDDIQUI Date: 2022-04-30 22:06 Normal [facility] US PREG TVon 04-08-2022 US [...] by: KAROL SIDDIQUI Date: 2022-04-08 17:08 Normal [facility] US PELVIS TRANSVAGon 022 US [...] by: CINDY NOGUEIRA Date: 2022-03-22 22:47 Normal [facility] CBC AUTO DIFFon 03-22-2022 BASO # 0.1 103/ul Normal 0.0-0.1 [facility] Comment on above: Performed By: #### U ACSIND #### [facility] [address] [address] [address] Adrianna Caldera Basophils/100 WBC (Bld) 0.5 % Normal 0.2-2.0 [facility] Comment on above: Performed By: #### U ACSIND #### [facility] [address] [address] [address] Adrianna Caldera EO # 0.1 103/ul Normal 0.0-0.7 [facility] Comment on above: Performed By: #### U ACSIND #### [facility] [address] [place] [address] Dr. Adrianna Caldera Eosinophils/100 WBC (Bld) 0.6 % Critically low 0.9-7.0 [facility] Comment on above: Performed By: #### U ACSIND #### [facility] [address] [place] [address] Dr. Adrianna aCldera Erythrocyte distribution width (RBC) [Ratio] 12.6 % Normal 11.0-15.0 [facility] Comment on above: Performed By: #### U ACSIND #### [facility] [address] [place] [address] Dr. Adrianna Caldera Hematocrit (Bld) [Volume fraction] 40.0 % Normal 36.0-48.0 [facility] Comment on above: Performed By: #### U ACSIND #### [facility] [address] [place] [address] Dr. Adrianna Caldera Hemoglobin (Bld) [Mass/Vol] 13.6 g/dL Normal 12.0-16.0 [facility] Comment on above: Performed By: #### U ACSIND #### [facility] [address] [place] [address] Dr. Adrianna Caldera IG # 0.03 10e3/ul Normal 0.00-0.03 [facility] Comment on above: Performed By: #### U ACSIND #### [facility] [address] [place] [address] Dr. Adrianna Caldera IG % 0.3 % Normal 0.0-0.5 The [facility] Comment on above: Performed By: #### U ACSIND #### [facility] [address] [place] [address] Dr. Adrianna Caldera LYMPH # 4.4 103/ul Critically high 1.2-3.[address] [facility] Comment on above: Performed By: #### U ACSIND #### [facility] [address] [place] [address] Dr. Adrianna Caldera Lymphocytes/100 WBC (Bld) 38.4 % Normal 20.5-60.0 [facility] Comment on above: Performed By: #### U ACSIND #### [facility] [address] [place] [address] Dr. Adrianna Caldera MANUAL DIFF REQ NO Normal [facility] Comment on above: Performed By: #### U ACSIND #### [facility] [address] [place] [address] Dr. Adrianna Caldera MCH (RBC) [Entitic mass] 30.2 pg Normal 26.7-34.0 [facility] Comment on above: Performed By: #### U ACSIND #### [facility] [address] [place] [address] Dr. Adrianna Caldera MCHC (RBC) [Mass/Vol] 34.0 g/dL Normal 29.9-35.2 [facility] Comment on above: Performed By: #### U ACSIND #### [facility] [address] [place] [address] Dr. Adrianna Caldera MCV (RBC) [Entitic vol] 88.9 fL Normal 81.0-99.0 [facility] [place] [facility] Comment on above: Performed By: #### U ACSIND #### [facility] [address] [place] [address] Dr. Adrianna Caldera MONO # 0.7 103/ul Normal 0.3-0.8 [facility] Comment on above: Performed By: #### U ACSIND #### [facility] [address] [place] [address] Dr. Adrianna Caldera Monocytes/100 WBC (Bld) 6.2 % Normal 1.7-12.0 [facility] [place] [facility] Comment on above: Performed By: #### U ACSIND #### [facility] [address] [place] [address] Dr. Adrianna Caldera NEUT # 6.1 103/ul Normal 1.4-6.5 [facility] Comment on above: Performed By: #### U ACSIND #### [facility] [address] [place] [address] Dr. Adrianna Caldera Neutrophils/100 WBC (Bld) 54.0 % Normal 43.0-75.0 [facility] Comment on above: Performed By: #### U ACSIND #### [facility] [address] [address] [address] Adrianna Caldera Platelet mean volume (Bld) [Entitic vol] 10.9 fL Normal 9.5-13.5 [facility] Comment on above: Performed By: #### U ACSIND #### [facility] [address] [address] [address] Adrianna Caldera PLT 277 103/ul Normal 150-450 [facility] Comment on above: Performed By: #### U ACSIND #### [facility] [address] [address] [address] Adrianna Caldera RBC 4.50 106/ul Normal 4.20-5.40 [facility] Comment on above: Performed By: #### U ACSIND #### [facility] [address] [address] [address] Adrianna Caldera WBC 11.3 103/ul Critically high 4.0-11.0 [facility] Comment on above: Performed By: #### U ACSIND #### [facility] [address] [address] [address] Adrianna Caldera ER URINE PROFILEon 2 Bilirubin Ql (U) Negative Normal NEGATIVE [facility] Comment on above: Performed By: #### P REGU, ERUR ####[facility] [address] [place], [place] [address]Dr. Adrianna Caldera Clarity (U) CLEAR Normal CLEAR The [facility] Comment on above: Performed By: #### P BASSEMU, ERUR ####[facility] [address] [address]Dr. Adrianna Caldera Color (U) LT. YELLOW Normal YELLOW The [facility] Comment on above: Performed By: #### P REGU, ERUR ####[facility] [address] [address]Dr. Adrianna MORALESD A micrscopic examination will be performed if indicated. Normal The [facility] Comment on above: Performed By: #### P REGU, ERUR ####[facility] [address] [address]Dr. Adrianna Caldera Glucose Ql (U) Negative Normal NEGATIVE [facility] Comment on above: Performed By: #### P REGU, ERUR ####[facility] [address] [address]Dr. Adrianna Caldera Hemoglobin Ql (U) Negative Normal NEGATIVE [facility] Comment on above: Performed By: #### P REGU, ERUR ####[facility] [address] [place], [place] [address]Dr. Adrianna Caldera Ketones Ql (U) Negative Normal NEGATIVE [facility] Comment on above: Performed By: #### P REGU, ERUR ####[facility] [address] [place], [place] [address]Dr. Adrianna Caldera LEUKOCYTES Negative Normal NEGATIVE [facility] Comment on above: Performed By: #### P REGU, ERUR ####[facility] [address] [place], [place] [address]Dr. Adrianna Caldera Nitrite Ql (U) Negative Normal NEGATIVE [facility] Comment on above: Performed By: #### P REGU, ERUR ####[facility] [address] [place], [place] [address]Dr. Adrianna Caldera pH (U) 6.0 [pH] Normal 5-9 [facility] Comment on above: Performed By: #### P REGU, ERUR ####[facility] [address] [place], [place] [address]Dr. Adrianna Caldera SPEC GRAVITY <=1.005 Abnormal 1.005-<=1.0 25 [facility] Comment on above: Performed By: #### P REGU, ERUR ####[facility] [address] [place], [place] [address]Dr. Adrianna Caldera UA PROTEIN Negative Normal NEGATIVE/ TRACE The [facility] Comment on above: Performed By: #### P REGU, ERUR ####[facility] [address] [address]DrAung Caldera UR MICRO IND NOT INDICATED Normal [facility] Comment on above: Performed By: #### P REGU, ERUR ####[facility] [address] [address]DrAung Caldera Urobilinogen Qn (U) 0.2 {Micheal'U}/dL Normal 0.2 - 1. 0 [facility] Comment on above: Performed By: #### P REGU, ERUR ####[facility] [address] [address]Dr. Adrianna Caldera PREG QUANT HCGon 03-22-2022 HCG QUANT 2 mIU/mL Normal [facility] Comment on above: Performed By: #### P REGQNT #### [facility] [address] [place] [address] Dr. Adrianna Caldera HCG RANGE SEE BELOW Normal [facility] Comment on above: Result Comment: 5-50 0.2-1 WEEK 50-500 1-2 WEEKS 100-5,000 2-3 WEEKS 500-10,000 3-4 WEEKS 1,000-50,000 4-5 WEEKS 10,000-100,000 5-6 WEEKS 15,000-200,000 6-8 WEEKS 10,000-100,000 2-3 MONTHS Performed By: #### P REGQNT #### [facility] [address] [place] [address] Dr. Adrianna Caldera URon 03-22-2022 , QUAL Negative Normal NEGATIVE [facility] Comment on above: Performed By: #### P REGU, ERUR ####[facility] [address] [id number] Caldera PROF CHEM 8 (BAS METB)on Anion gap [Moles/Vol] 10.9 mmol/L Normal [facility] Comment on above: Performed By: #### U ACSIND #### [facility] [address] [place] [address] Dr. Adrianna Caldera Calcium [Mass/Vol] 9.1 mg/dL Normal 8.5-10.1 [facility] Comment on above: Performed By: #### U ACSIND #### [facility] [address] [address] [address] Adrianna Caldera Chloride [Moles/Vol] 105 mmol/L Normal 98-107 [facility] Comment on above: Performed By: #### U ACSIND #### [facility] [address] [address] [address] Adrianna Caldera CO2 [Moles/Vol] 26.0 mmol/L Normal 21.0-32.0 [facility] Comment on above: Performed By: #### U ACSIND #### [facility] [address] [address] [address] Adrianna Caldera Creatinine [Mass/Vol] 0.98 mg/dL Normal 0.55-1.02 [facility] Comment on above: Performed By: #### U ACSIND #### [facility] [address] [address] [address] Adrianna Caldera EGFR-AF MARSHALLESE >60 Normal >=60 [facility] Comment on above: Performed By: #### U ACSIND #### [facility] [address] [address] [address] Adrianna Caldera EGFR-NON AF MARSHALLESE >60 Normal >=60 The [facility] Comment on above: Performed By: #### U ACSIND #### [facility] [address] [address] [address] Adrianna Caldera Glucose [Mass/Vol] 87 mg/dL Normal 74-106 [facility] Comment on above: Performed By: #### U ACSIND #### [facility] [address] [address] [address] Adrianna Caldera Potassium [Moles/Vol] 3.9 mmol/L Normal 3.5-5.1 [facility] Comment on above: Performed By: #### U ACSIND #### [facility] [address] [address] [address] Adrianna Caldera Sodium [Moles/Vol] 138 mmol/L Normal 136-145 [facility] Comment on above: Performed By: #### U ACSIND #### [facility] [address] [address] [address] Adrianna Caldera Urea nitrogen [Mass/Vol] 11.0 mg/dL Normal 7.0-18.0 [facility] Comment on above: Performed By: #### U ACSIND #### [facility] [address] [address] [address] Adrianna Caldera Urea nitrogen/Creatinine [Mass ratio] 11.2 mg/mg Normal [facility] Comment on above: Performed By: #### U ACSIND #### [facility] [address] [address] [address] Adrianna Caldera PREG QUANT HCGon 03-03-2022 HCG QUANT 1 mIU/mL Normal [facility] Comment on above: Performed By: #### P REGQNT #### [facility] [address] [address] [address] Adrianna Caldera HCG RANGE SEE BELOW Normal [facility] Comment on above: Result Comment: 5-50 0.2-1 WEEK 50-500 1-2 WEEKS 100-5,000 2-3 WEEKS 500-10,000 3-4 WEEKS 1,000-50,000 4-5 WEEKS 10,000-100,000 5-6 WEEKS 15,000-200,000 6-8 WEEKS 10,000-100,000 2-3 MONTHS Performed By: #### P REGQNT #### [facility] [address] [address] [address] Adrianna Caldera Creatinine and Glomerular fi ltration rate.predicted panel (S/P/Bld)Ordered By: Tae Natarajan on 02-10-2022 Creatinine [Mass/Vol] 1.03 mg/dL 0.44-1.03 [facility] Estimated glomerular filtrat ion rate (GFR) non- AmericanOrdered By: Tae Natarajan on 02-10-2022 GFR/1.73 sq M.predicted among non-blacks MDRD (S/P/Bld) [Vol rate/Area] > 60 mL/Min [facility] HCG ( test) Jacquelyn izquierdo Ql (U)Ordered By: Tae Natarajan on 02-10-2022 HCG ( test) Ql (U) Negative [facility] No Panel InformationOrdered By: Tae Natarajan on 02-10-2022 Estimated GFR () > 60 mL/Min [facility] Comment on above: GFR estimated refere nce range: According to KDOQI guidelines, <60 ml/min/1.73m2 is sufficient to diagnose a patient with chronic kidney disease. Pharmacy Creatinine Clearance (Chem 88.89 [facility] Serum or plasma urea nitroge n measurement (mass/volume)Ordered By: Tae Natarajan on 02-10-2022 Urea nitrogen [Mass/Vol] 9 mg/dL 02-19 [facility] PREG QUANT HCGon 12-04-2021 HCG QUANT <1 Normal [facility] Comment on above: Performed By: #### P REGQNT #### [facility] [address] [address] [address] Adrianna Caldera HCG RANGE SEE BELOW Normal [facility] Comment on above: Result Comment: 5-50 0-1 WEEK 40-300 1-2 WEEKS 100-1,000 2-3 WEEKS 500-6,000 3-4 WEEKS 5,000-200,000 1-2 MONTHS 10,000-100,000 2-3 MONTHS 3,000-50,000 2ND TRIMESTER 1,000-50,000 3RD TRIMESTER Performed By: #### P REGQNT #### [facility] [address] [address] [address] Adrianna Caldera CBC AUTO DIFFon 11-14-2021 BASO # 0.1 103/ul Normal 0.0-0.1 [facility] Comment on above: Performed By: #### C BC ####[facility] [address] [address]Dr. Adrianna Caldera Basophils/100 WBC (Bld) 0.5 % Normal 0.2-2.0 [facility] Comment on above: Performed By: #### C BC ####[facility] [address] [id number]. Adrianna Caldera EO # 0.1 103/ul Normal 0.0-0.7 [facility] Comment on above: Performed By: #### C BC ####[facility] [address] [phone]. Adrianna Caldera Eosinophils/100 WBC (Bld) 0.8 % Critically low 0.9-7.0 [facility] Comment on above: Performed By: #### C BC ####[facility] [address] [address]Dr. Adrianna Caldera Erythrocyte distribution width (RBC) [Ratio] 13.0 % Normal 11.0-15.0 [facility] Comment on above: Performed By: #### C BC ####[facility] [address] [place], [place] [address]Dr. Adrianna Caldera Hematocrit (Bld) [Volume fraction] 38.5 % Normal 36.0-48.0 [facility] Comment on above: Performed By: #### C BC ####[facility] [address] [place], [place] [address]Dr. Adrianna Caldera Hemoglobin (Bld) [Mass/Vol] 12.9 g/dL Normal 12.0-16.0 [facility] Comment on above: Performed By: #### C BC ####[facility] [address] [place], [place] [address]Dr. Adrianna Caldera IG # 0.03 10e3/ul Normal 0.00-0.03 [facility] Comment on above: Performed By: #### C BC ####[facility] [address] [place], [place] [address]Dr. Adrianna Caldera IG % 0.3 % Normal 0.0-0.5 [facility] Comment on above: Performed By: #### C BC ####[facility] [address] [place], [place] [address]Dr. Adrianna Caldera LYMPH # 2.8 103/ul Normal 1.2-3.8 [facility] Comment on above: Performed By: #### C BC ####[facility] [address] [place], [place] [address]Dr. Adrianna Caldera Lymphocytes/100 WBC (Bld) 27.4 % Normal 20.5-60.0 [facility] Comment on above: Performed By: #### C BC ####[facility] [address] [id number]. Adrianna Caldera MANUAL DIFF REQ NO Normal [facility] Comment on above: Performed By: #### C BC ####[facility] [address] [place], [place] [address]Pf. Adrianna Caldera MCH (RBC) [Entitic mass] 29.7 pg Normal 26.7-34.0 [facility] Comment on above: Performed By: #### C BC ####[facility] [address] [phone]. Adrianna Caldera MCHC (RBC) [Mass/Vol] 33.5 g/dL Normal 29.9-35.2 [facility] Comment on above: Performed By: #### C BC ####[facility] [address] [id number]. Adrianna Caldera MCV (RBC) [Entitic vol] 88.7 fL Normal 81.0-99.0 [facility] Comment on above: Performed By: #### C BC ####[facility] [address] [id number]. Adrianna Caldera MONO # 0.7 103/ul Normal 0.3-0.8 [facility] Comment on above: Performed By: #### C BC ####[facility] [address] [phone]. Adrianna Caldera Monocytes/100 WBC (Bld) 6.5 % Normal 1.7-12.0 [facility] Comment on above: Performed By: #### C BC ####[facility] [address] [phone]. Adrianna Caldera NEUT # 6.5 103/ul Normal 1.4-6.5 [facility] Comment on above: Performed By: #### C BC ####[facility] [address] [id number]. Adrianna Caldera Neutrophils/100 WBC (Bld) 64.5 % Normal 43.0-75.0 [facility] Comment on above: Performed By: #### C BC ####[facility] [address] [address]Dr. Adrianna Caldera Platelet mean volume (Bld) [Entitic vol] 10.4 fL Normal 9.5-13.5 [facility] Comment on above: Performed By: #### C BC ####[facility] [address] [address]Dr. Adrianna Caldera PLT 324 103/ul Normal 150-450 [facility] Comment on above: Performed By: #### C BC ####[facility] [address] [place], [place] [address]Dr. Adrianna Caldera RBC 4.34 106/ul Normal 4.20-5.40 [facility] Comment on above: Performed By: #### C BC ####[facility] [address] [place], [place] [address]Dr. Adrianna Caldera WBC 10.1 103/ul Normal 4.0-11.0 [facility] Comment on above: Performed By: #### C BC ####[facility] [address] [place], [place] [address]Dr. Adrianna Werner ER URINE PROFILEon 2 Bilirubin Ql (U) Negative Normal NEGATIVE [facility] Comment on above: Performed By: #### JOHN HAYNES UMICRO ####[facility] [address] [place], [place] [address]Dr. Jemimabenito Caldera Clarity (U) CLEAR Normal CLEAR [facility] Comment on above: Performed By: #### JOHN HAYNES UMICRO ####[facility] [address] [address]Dr. Jemimabenito Caldera Color (U) LT. YELLOW Normal YELLOW [facility] Comment on above: Performed By: #### JOHN HAYNES UMICRO ####[facility] [id number] [address]Dr. Jemimabenito Caldera ERUAHD A micrscopic examination will be performed if indicated. Normal The [facility] Comment on above: Performed By: #### E RUR, PREGU, UMICRO ####[facility] [address] [address]Dr. Adrianna Caldera Glucose Ql (U) Negative Normal NEGATIVE The [facility] Comment on above: Performed By: #### Rojelio MONDRAGON PREGU, UMICRO ####[facility] [id number] [address]Dr. Adrianna Caldera Hemoglobin Ql (U) LARGE Abnormal NEGATIVE The [facility] Comment on above: Performed By: #### Rojelio MONDRAGON PREGU, UMICRO ####[facility] [address] [place] [address]Dr. Adrianna Werner Ketones Ql (U) Negative Normal NEGATIVE The [facility] Comment on above: Performed By: #### Rojelio MONDRAGON PREGU UMICRO ####[facility] [address] [address]Dr. Adrianna Werner LEUKOCYTES Negative Normal NEGATIVE [facility] Comment on above: Performed By: #### Rojelio MONDRAGON PREGU UMICRO ####[facility] [address] [place], [place] [address]Dr. Adrianna Acldera Nitrite Ql (U) Negative Normal NEGATIVE The [facility] Comment on above: Performed By: #### Rojelio MONDRAGON PREGU UMICRO ####[facility] [address] [address]Dr. Adrianna Caldera pH (U) 6.5 [pH] Normal 5-9 The [facility] Comment on above: Performed By: #### Rojelio MONDRAGON PREGU, UMICRO ####[facility] [address] [address]Dr. Adrianna Caldera SPEC GRAVITY 1.015 Normal 1.005-<=1.0 25 [facility] Comment on above: Performed By: #### Rojelio MONDRAGON PREGU UMICRO ####[facility] [address] [address]Dr. Adrianna Cadlera UA PROTEIN Negative Normal NEGATIVE/ TRACE The [facility] Comment on above: Performed By: #### E RUR, PREGU, UMICRO ####[facility] [address] [id number]. Adrianna Caldera UR MICRO IND INDICATED Normal The [facility] Comment on above: Performed By: #### E RUR, PREGU, UMICRO ####[facility] [address] [place], [place] [address]Hw. Adrianna Caldera Urobilinogen Qn (U) 0.2 {Micheal'U}/dL Normal 0.2 - 1. 0 [facility] Comment on above: Performed By: #### E RUR, PREGU, UMICRO ####[facility] [address] [id number]. Adrianna Caldera URon 11-14-2021 , QUAL Negative Normal NEGATIVE The [facility] Comment on above: Performed By: #### E RUR, PREGU, UMICRO ####[facility] [address] [address]Dr. Adrianna Caldera PROF CHEM 8 (BAS METB)on Anion gap [Moles/Vol] 13.5 mmol/L Normal [facility] Comment on above: Performed By: #### U ACSIND #### [facility] Laboratory [address] [address] [address] Adrianna Caldera Calcium [Mass/Vol] 8.7 mg/dL Normal 8.5-10.1 [facility] Comment on above: Performed By: #### U ACSIND #### [facility] Laboratory [address] [address] [address] Adrianna Caldera Chloride [Moles/Vol] 102 mmol/L Normal 98-107 [facility] Comment on above: Performed By: #### U ACSIND #### [facility] Laboratory [address] [address] [address] Adrinana Caldera CO2 [Moles/Vol] 27.3 mmol/L Normal 21.0-32.0 [facility] Comment on above: Performed By: #### U ACSIND #### [facility] Laboratory [address] [address] [address] Adrianna Caldera Creatinine [Mass/Vol] 0.85 mg/dL Normal 0.55-1.02 [facility] Comment on above: Performed By: #### U ACSIND #### [facility] Laboratory [address] [address] [address] Adrianna Caldera EGFR-AF MARSHALLESE >60 Normal >=60 [facility] Comment on above: Performed By: #### U ACSIND #### [facility] Laboratory [address] [address] [address] Adrianna Caldera EGFR-NON AF MARSHALLESE >60 Normal >=60 [facility] Comment on above: Performed By: #### U ACSIND #### [facility] Laboratory [address] [address] [address] Adrianna Caldera Glucose [Mass/Vol] 104 mg/dL Normal 74-106 [facility] Comment on above: Performed By: #### U ACSIND #### [facility] Laboratory [address] [address] [address] Adrianna Caldera Potassium [Moles/Vol] 3.8 mmol/L Normal 3.5-5.1 [facility] Comment on above: Performed By: #### U ACSIND #### [facility] Laboratory [address] [address] [address] Adrianna Caldera Sodium [Moles/Vol] 139 mmol/L Normal 136-145 The [facility] Comment on above: Performed By: #### U ACSIND #### [facility] Laboratory [address] [address] [address] Adrianna Caldera Urea nitrogen [Mass/Vol] 8.0 mg/dL Normal 7.0-18.0 [facility] Comment on above: Performed By: #### U ACSIND #### [facility] Laboratory [address] [address] [address] Adrianna Caldera Urea nitrogen/Creatinine [Mass ratio] 9.4 mg/mg Normal [facility] Comment on above: Performed By: #### U ACSIND #### [facility] Laboratory [address] [address] [address] Adrianna Caldera URINE MICROSCOPIC ONLYon BACTERIA NONE SEEN Normal NONE SEEN The [facility] Comment on above: Performed By: #### E RUR, PREGU, UMICRO ####[facility] [address] [address]Dr. Adrianna Caldera Bacteria identified Cx Nom (U) NOT INDICATED Normal The [facility] Comment on above: Performed By: #### E RUR, PREGU, UMICRO ####[facility] [address] [place] [address] [address]Dr. Adrianna Caldera CAST NONE SEEN Normal NONE SEEN The [facility] Comment on above: Performed By: #### E RUR, PREGU, UMICRO ####[facility] [address] [address]Dr. Adrianna Caldera Crystals LM Nom (Urine sed) NONE SEEN Normal NONE SEEN The [facility] Comment on above: Performed By: #### E RUR, PREGU, UMICRO ####[facility] [address] [address]Dr. Adrianna Caldera Epithelial cells LM Ql (Urine sed) RARE Normal NONE SEEN /RARE The [facility] Comment on above: Performed By: #### E RUR, PREGU, UMICRO ####[facility] [address] [place] [address] [address]Dr. Adrianna Caldera MUCOUS NONE SEEN Normal NONE SEEN The [facility] Comment on above: Performed By: #### E RUR, PREGU, UMICRO ####[facility] [address] [address]Dr. Adrianna Caldera RBC 10-20 Abnormal 0-2 The [facility] Comment on above: Performed By: #### E RUR, PREGU, UMICRO ####[facility] [address] [address]Dr. Adrianna Caldera WBC 0-2 Abnormal NONE SEEN The [facility] Comment on above: Performed By: #### E RUR, PREGU, UMICRO ####[facility] [address] [address]Dr. Adrianna Caldera HCG, Quantitative, on 10-12-2021 hCG Quant <1 <5 mIU/mL [facility] Comment on above: Non-preg premeno <=5 Postmeno <=8 Male <=3 If HCG results do not concur with clinical observations, additional testing to confirm results is recommended. Elevated results not associated with may be found in patients with other diseases such as tumors of the germ cells (testis, ovaries, etc.), bladder, pancreas, stomach, lungs, and liver. [facility] CBC with Auto Differentialon 10-11-2021 Absolute Eos # 0.08 [facility] Absolute Immature Granulocyte <0.03 [facility] Absolute Lymph # 1.85 [facility] alth Absolute Ritchie # 0.56 [facility] lt Basophils (Bld) [#/Vol] 0.04 10*3/uL [facility] Basophils/100 WBC (Bld) 1 % 0 - 2 % [facility] Eosinophils/100 WBC (Bld) 1 % 1 - 4 % [facility] Hematocrit (Bld) [Volume fraction] 38.9 % 36.3 - 47.1 % [facility] Hemoglobin.gastrointest inal spec 1 Ql (Stl) 12.7 g/dL 11.9 - 15.1 g/dL [facility] Immature granulocytes/100 WBC (Bld) 0 % 0 [facility] Lymphocytes/100 WBC (Bld) 29 % 24 - 43 % [facility] MCH (RBC) [Entitic mass] 29.7 pg 25.2 - 33.5 pg [facility] MCHC (RBC) [Mass/Vol] 32.6 g/dL 28.4 - 34.8 g/dL [facility] MCV (RBC) [Entitic vol] 90.9 fL 82.6 - 102.9 fL [facility] Monocytes/100 WBC (Bld) 9 % 3 - 12 % [facility] NRBC Automated 0.0 0.0 per 100 WBC [facility] Platelet distribution width (Bld) [Ratio] 12.9 % 11.8 - 14.4 % [facility] Platelet mean volume (Bld) [Entitic vol] 10.3 fL 8.1 - 13.5 fL [facility] Platelets (Bld) [#/Vol] 351 10*3/uL [facility] RBC (Bld) [#/Vol] 4.28 10*6/uL 3.95 - 5.1 1 m/uL [facility] Segmented neutrophils/100 WBC (Bld) 60 % 36 - 65 % [facility] Segs Absolute 3.90 [facility] h WBC (Bld) [#/Vol] 6.5 10*3/uL [facility] CT ABDOMEN PELVIS W IV CONTR AST Additional Contrast? Noneon 10-11-2021 Negative acute inflammatory process or bowel obstruction. [facility] EXAMINATION: CT OF THE ABDOMEN AND [...] No hydronephrosis. Gallbladder is not remarkable. GI/Bowel: Bjlm-fd-hgowvlsb retained stool without bowel obstruction. No pericecal inflammatory changes. Appendix unremarkable. Pelvis: There is mild prominence endometrial canal 7 mm. This may related to phase of menstrual cycle. Please correlate exam findings and history. No suspicious adnexal mass. Bladder remarkable. Peritoneum/Retroperi toneum: Trace free fluid dependent pelvis. No free air. No suspicious adenopathy. Bones/Soft Tissues: No suspicious osseous lesion [facility] Ashutosh Omalley MD - 10/11/2021 EXAMINATION: [...] No hydronephrosis. Gallbladder is not remarkable. GI/Bowel: Qcej-uv-eyulxvzm retained stool without bowel obstruction. No pericecal [...] Negative acute inflammatory process or bowel obstruction. [facility] Work Phone: Radiology Study observation (narrative) [employer] Work Phone: CT ABDOMEN PELVIS W IV CONTR AST Additional Contrast? NoneOrdered By: Ashutosh Omalley on 10-11-2021 [facility] Work Phone: Comprehensive Metabolic Pane l w/ Reflex to on 10-11-2021 Albumin [Mass/Vol] 4.3 g/dL 3.5 - 5.2 g/dL [facility] Albumin/Globulin [Mass ratio] 1.7 {ratio} [facility] ALP (Bld) [Catalytic activity/Vol] 73 U/L 35 - 104 U/L [facility] ALT [Catalytic activity/Vol] 21 U/L 5 - 33 U/L [facility] Anion gap [Moles/Vol] 7 mmol/L Low 9 - 17 mmol/L [facility] AST [Catalytic activity/Vol] 15 U/L <32 [facility] Bilirubin [Mass/Vol] 0.25 mg/dL Low 0.3 - 1 .2 mg/dL [facility] Calcium [Mass/Vol] 9.1 mg/dL 8.6 - 10. 4 mg/dL [facility] Chloride [Moles/Vol] 105 mmol/L 98 - 10 7 mmol/L [facility] CO2 [Moles/Vol] 26 mmol/L 20 - 31 mmol/L [facility] Creatinine [Mass/Vol] 0.75 mg/dL 0.50 - 0.90 mg/dL [facility] Free PSA/Total PSA [Mass fraction] 6.8 g/dL 6.4 - 8.3 g/dL [facility] GFR >60 >60 mL/min [facility] GFR Non- >60 >60 mL/min [facility] Glucose [Mass/Vol] 116 mg/dL High 70 - 99 mg/dL [facility] Interpretation and review of laboratory results Abnormal [facility] Potassium [Moles/Vol] 3.9 mmol/L 3.7 - 5.3 mmol/L [facility] Sodium [Moles/Vol] 138 mmol/L 135 - 144 mmol/L [facility] Urea nitrogen (BldV) [Mass/Vol] 9 mg/dL 6 - 20 mg/dL [facility] Urea nitrogen/Creatinine (Bld) [Mass ratio] 12 [facility] Laboratory - Chemistry and C hemistry - challengeon 10-11-2021 GFR/1.73 sq M.predicted MDRD (S/P/Bld) [Vol rate/Area] [facility] Comment on above: Average GFR for 20-2 9 years old: 116 mL/min/1.73sq m Chronic Kidney Disease: <60 mL/min/1.73sq m Kidney failure: <15 mL/min/1.73sq m eGFR calculated using average adult body mass. Additional eGFR calculator available at: http://www.[employer]/multiple_crcl_2012.htm Stage 1: Some kidney damage normal GFR Stage 2: Mild kidney damage GFR 60-89 Stage 3: Moderate kidney damage GFR 30-59 Stage 4: Severe kidney damage GFR 15-29 Stage 5: Severe kidney damage GFR <15 ESRD - chronic treatment by dialysis or transplant Lipaseon 10-11-2021 Lipase [Catalytic activity/Vol] 39 U/L 13 - 60 U/L [facility] Microscopic Urinalysison - [facility] Bacteria, UA TRACE Abnormal None [facility] Crystals, UA 2 TO 5 CALCIUM OXALATE Abnormal None /HPF [facility] Epithelial Cells UA 2 TO 5 [facility] Interpretation and review of laboratory results Abnormal [facility] RBC, UA 2 TO 5 [facility] WBC, UA 0 TO 2 [facility] No Panel Informationon 10-11 [facility] , Urineon Beta HCG ( test) Ql (U) Negative NEGATIVE [facility] Comment on above: Specimens with hCG l evels near the threshold of the test (25 mIU/mL) may give a negative or indeterminate result. In such cases, another test should be performed with a new specimen in 48-72 hours. If early is suspected clinically in this setting, correlation with quantitative serum b-hCG level is suggested. [employer] has confirmed the use of plasma for this test. This has not been cleared or approved by the U.S. Food and Drug Administration. The FDA has determined that such clearance is not necessary. [facility] Urinalysis with Reflex to Cu ltureon 10-11-2021 Bilirubin Urine Negative NEGATIVE [facility] lt Color, UA Yellow Yellow [facility] Glucose, Ur Negative NEGATIVE [facility] Interpretation and review of laboratory results Abnormal [facility] Ketones Ql (U) Negative NEGATIVE [facility] Leukocyte esterase Test strip Ql (U) Negative NEGATIVE [facility] Nitrite, Urine Negative NEGATIVE [facility] pH, UA 6.0 [facility] Protein, UA Negative NEGATIVE [facility] Specific [place], UA >1.030 High [facility] Turbidity UA Clear Clear [facility] Urine Hgb TRACE Abnormal NEGATIVE [facility] Urobilinogen, Urine Normal Normal [facility] PREG QUANT HCGon 10-09-2021 HCG QUANT <1 Normal The [facility] Comment on above: Performed By: #### P REGQNT ####[facility] [address] [id number]. Adrianna Caldera HCG RANGE SEE BELOW Normal The [facility] Comment on above: Result Comment: 5-50 0-1 WEEK 40-300 1-2 WEEKS 100-1,000 2-3 WEEKS 500-6,000 3-4 WEEKS 5,000-200,000 1-2 MONTHS 10,000-100,000 2-3 MONTHS 3,000-50,000 2ND TRIMESTER 1,000-50,000 3RD TRIMESTER Performed By: #### P REGQNT ####[facility] [address] [place], [place] [address]Cj. Adrianna Caldera CULTURE, URINE, ROUTINEon CULTURE, URINE, ROUTINE SEE NOTE Abnormal [facility] Comment on above: Result Comment: CULTURE, URINE, ROUTINE Micro Number: [id number] Test Status: Final Specimen Source: Urine Specimen [...] Performed By: #### 3 95 #### [facility] [address] [place] [address] Rd, [address] [place] [address] Classroom Technology Technician: Javid Broussard MD XR CHEST PORTABLEon 03-16-20 No acute process. Althea peterson- [place] EXAMINATION: ONE XRAY VIEW OF THE CHEST 03/16/2020 3:33 pm COMPARISON: 07/13/2014 HISTORY: ORDERING SYSTEM PROVIDED HISTORY: cough, dyspnea TECHNOLOGIST PROVIDED HISTORY: cough, dyspnea FINDINGS: The lungs are without acute focal process. There is no effusion or pneumothorax. The cardiomediastinal silhouette is without acute process. The osseous structures are without acute process. [place], [place] James, Mhpn Incoming Radiant Results From [employer]/Pacs - 03/16/2020 3:43 PM EDT EXAMINATION: ONE XRAY VIEW OF THE CHEST 03/16/2020 3:33 pm COMPARISON: 07/13/2014 HISTORY: ORDERING SYSTEM PROVIDED HISTORY: cough, dyspnea TECHNOLOGIST PROVIDED HISTORY: cough, dyspnea FINDINGS: The lungs are without acute focal process. There is no effusion or pneumothorax. The cardiomediastinal silhouette is without acute process. The osseous structures are without acute process. IMPRESSION: No acute process. [place], [place] Urinalysis with Microscopico n 03-03-2020 Amorphous, UA 1+ Abnormal None [place], [place] Bacteria, UA NOT REPORTED None [place], [place] Bilirubin Urine Negative NEGATIVE [place], [place] Casts UA NOT REPORTED /LPF [place] Color, UA YELLO YELLOW [place] Crystals, UA NOT REPORTED None /HPF [place] Epithelial Cells UA None [place] Glucose, Ur Negative NEGATIVE [place] Interpretation and review of laboratory results Abnormal [place] Ketones Ql (U) Negative NEGATIVE [place] Leukocyte esterase Test strip Ql (U) Negative NEGATIVE [place] Mucus, UA NOT REPORTED None [place], [place] Nitrite, Urine Negative NEGATIVE [place] Other Observations UA NOT REPORTED NOT REQ. [place], [place] pH, UA 6.0 [place] Protein (U) [Mass/Vol] Negative NEGATIVE [place], [place] RBC (U) [#/Vol] None [place], [place] Renal Epithelial, UA NOT REPORTED 0 /HPF [place] Specific [place], UA >1.030 High [place], [place] Trichomonas, UA NOT REPORTED None [facility] [place] Turbidity UA CLOUDY Abnormal CLEAR [place] Urinalysis Comments NOT REPORTED [place] Urine Hgb TRACE Abnormal NEGATIVE [place] Urobilinogen, Urine Normal Normal [place] WBC, UA 0 TO 2 [place] Yeast, UA NOT REPORTED None [place] HEPATOBILIARY SCAN W EJEC TION FRACTIONon 10-12-2019 Cholesterol [Mass/Vol] No convincing scintigraphic evidence of acute or chronic cholecystitis. [place] EXAMINATION: NUCLEAR MEDICINE HEPATOBILIARY SCINTIGRAPHY (HIDA [...] 30-60 mins. Images were obtained in the GIBRALTARIAN projection and regions of interest were drawn [...] range is based on a limited study. [place], [place] James, Mhpn Incoming Radiant Results From [facility]/UB Access - 10/12/2019 2:56 PM EDT EXAMINATION: NUCLEAR [...] 30-60 mins. Images were obtained in the [place]IBRALT[place]IAN projection and regions of interest were drawn [...] scintigraphic evidence of acute or chronic cholecystitis. [place] HEPATOBILIARY SCAN W [facility] INTER[facility]ION[facility] 10-12-2019 NE HEPATOBILIARY SCAN W PHARMACOLOGICAL INTERVENTION EXAMINATION: NUCLEAR [...] 30-60 mins. Images were obtained in the [place]IBRALT[place]IAN projection and regions of interest were drawn [...] Niraj Covarrubias MD 10/12/19 Final result Normal [facility] H. pylori urease IDon 2019 H. pylori urease ID Specimen Description .TISSUE, ST[place] [id number] EXP 04/05/20 Direct Exam NEGATIVE Report Status FINAL 10/06/2019 Normal [facility] Comment on above: Performed By: #### H JOELLE #### [facility] [address] [place] [id number] Process Engineering Technician: Varun Vicente MD [facility] [employer] [address] [place] [address] [id number] Process Engineering Technician: Omar Segundo MD OPERATIVE REPORTon 0 OPERATIVE REPORT [address] [address] OPERATIVE REPORT PATIENT NAME: CARI GAITAN : 1995 [facility] REC NO: [id number] ROOM: ACCOUNT NO: [id number] ADMIT DATE: 10/05/2019 PROVIDER: Toño Blanc Jr [...] its completion in satisfactory condition. TOÑO BLANC [id number] Doc#: [id number] CC: Regina Johnson Toño Blanc Jr Normal [facility] POCT urine pregnancyon 10-04 Beta HCG ( test) Ql (U) Negative NEGATIVE [place] Comment on above: Specimens with hCG l evels near the threshold of the test (25 mIU/mL) may give a negative or indeterminate result. In such cases, another test should be performed with a new specimen in 48-72 hours. If early is suspected clinically in this setting, correlation with quantitative serum b-hCG level is suggested. [id number] 10-05-2019 SARS-CoV-2 Not Detected Normal Not Detected [facility] Comment on above: Result Comment: (NOT E) The [employer] RealTime SARS-CoV-2 assay is a real-time (rt) reverse transcriptase (RT) polymerase chain reaction (PCR) test intended for the [employer]er000 system. The SARS-CoV-2 primer and probe sets are designed to detect RNA from SARS-CoV-2 in nasopharyngeal (HEALTH AND WELLNESS SALES CONSULTANT) and oropharyngeal (OP) swabs from patients with [...] The above 1 analytes were performed by [facility] [address] [place] [address] Performed By: #### C OVID #### [facility] [address] [place] [address] Process Engineering Technician: Samson Martinez DO [address] [id number] Process Engineering Technician: Omar Segundo MD [facility] [address] [place] [address] Process Engineering Technician: Bill Jolly MD Surgical Pathologyon 020 Surgical Pathology (NOTE) -- Diagnosis -- 1. GASTRIC ANTRUM BIOPSIES: MILD CHRONIC INACTIVE GASTRITIS. 2. DISTAL ESOPHAGUS BIOPSIES: NORMAL SQUAMOUS MUCOSA. GASTRIC MUCOSA WITH MILD CHRONIC INACTIVE INFLAMMATION; NEGATIVE FOR INTESTINAL/GOBLET CELL METAPLASIA AND GLANDULAR DYSPLASIA. Luisito Bravo Electronically Signed Out ajb/10/08/2019 Clinical Information Pre-op Diagnosis: NAUSEA, VOMITING Operative Findings: GASTRIC ANTRUM BIOPSY, DISTAL ESOPHAGUS Operation Performed: EGD Source of Specimen 1: GASTRIC ANTRUM BIOPSY 2: DISTAL ESOPHAGUS Gross Description 1. CARI GAITAN, GASTRIC ANTRUM BIOPSY Four pink weiss tissue fragments ranging in size from 0.4 to 0.5 cm. and form in aggregate measuring 0.9 x 0.4 x 0.3 cm. 1ns 2. CARI GAITAN, DISTAL ESOPHAGUS Two weiss white tissue fragments each measuring 0.3 x 0.2 x 0.2 cm. and form in aggregate measuring 0.4 x 0.3 x 0.2 cm. 1ns mpb/dw Microscopic Description 1. Gastric mucosa is mild chronic inactive inflammation. There is no evidence of Helicobacter pylori gastritis, intestinal metaplasia, dysplasia or malignancy. 2. Microscopic examination performed. SURGICAL PATHOLOGY CONSULTATION Patient Name: CARI GAITAN Med Rec: [id number] Path Number: [id number] [facility] loc[facility] ANATOMIC PATHOLOGY [address] [place] [address]. [place], [place] [address] Normal [facility] Comment on above: Performed By: #### P PPVS #### [address] [address] [employer] Technician: Omar Segundo MD [id number] 10-03-2019 SARS-CoV-2,Rapid Normal [facility] Comment on above: Performed By: #### C OVID #### [facility] [address] [place] [address] Process Engineering Technician: Samson Martinez DO [facility] [address] [address] Process Engineering Technician: Omar Segundo MD [facility] [address] [place] [address] Process Engineering Technician: Bill Jolly MD SARS-CoV-2 [facility] Comment on above: Performed By: #### C OVID #### [facility] [address] [place] [address] Process Engineering Technician: Samson Martinez DO [facility] [address] Process Engineering Technician: Omar Segundo MD [facility] [address] [place] [address] Process Engineering Technician: Bill Jolly MD SARS-CoV-2 Source .NASOPHARYNGEAL SWAB Normal [facility] Comment on above: Performed By: #### C OVID #### [facility] [address] [place] [address] Process Engineering Technician: Samson Martinez DO [facility] [address] [address] Process Engineering Technician: Omar Segundo MD [facility] [address] [place] [address] Process Engineering Technician: Bill Jolly MD XR ABDOMEN (KUB) (SINGLE AP VIEW)on 02-08-2019 Nonspecific nonobstructive bowel gas pattern. No definite calcified urinary tract stones are seen. [place] EXAMINATION: ONE SUPINE XRAY VIEW(S) OF [...] nonobstructive bowel gas pattern. No unusual calcifications. [place], [place] James, M[facility] Incoming Radiant Results From [facility]/UB Access - 02/08/2019 4:29 PM EDT EXAMINATION: ONE [...] definite calcified urinary tract stones are seen. [place] Urinalysis with Microscopico n 02-06-2019 Amorphous, UA NOT REPORTED None [place], [place] Bacteria, UA TRACE Abnormal None [place] Bilirubin Urine Negative NEGATIVE [place] Casts UA NOT REPORTED /LPF [place] Color, UA YELLOW YELLOW [place] Crystals UA NOT REPORTED None /HPF [place] Epithelial Cells UA 2 TO 5 [place] Glucose, Ur Negative NEGATIVE [place] Interpretation and review of laboratory results Abnormal [place] Ketones Ql (U) Negative NEGATIVE [place], [place] Leukocyte esterase Test strip Ql (U) Negative NEGATIVE [place] Mucus, UA 1+ Abnormal None [place] Nitrite, Urine Negative NEGATIVE [place] Other Observations UA NOT REPORTED NOT REQ. [place] pH, UA 7.0 [place] Protein (U) [Mass/Vol] Negative NEGATIVE Me [place], [place] RBC (U) [#/Vol] 0 TO 2 [place] Renal Epithelial, Urine NOT REPORTED 0 /HPF [place] Specific [place], UA 1.020 [place] Trichomonas, UA NOT REPORTED None [facility] [place] Turbidity UA CLEAR CLEAR [place] Urinalysis Comments NOT REPORTED [place] Urine Hgb TRACE Abnormal NEGATIVE [place] Urobilinogen, Urine Normal Normal [place] WBC, UA 0 TO 2 [place] Yeast, UA NOT REPORTED None [place] - [place] Wet prep, genitalon 02-07-20 19 Direct Exam NO TRICHOMONAS SEEN [place] Direct Exam YEAST [place] Direct Exam CLUE CELLS SEEN Abnormal [place] Interpretation and review of laboratory results Abnormal [place] Special Requests NOT REPORTED [place] Specimen Description .VAGINA [place] Vital Signs Date Time Vital Sign Value Performing Clinician Facility 01-13-2025 19:53-0400 Diastolic blood pressure 64 mm[Hg] Kd Couch MD Work Phone: [facility] 01-13-2025 19:53-0400 Heart rate 81 /min Kd Couch MD Work Phone: [facility] 01-13-2025 19:53-0400 SaO2% (BldA) [Mass fraction] 97 % Kd Couch MD Work Phone: [facility] 01-13-2025 19:53-0400 Systolic blood pressure 127 mm[Hg] Kd Couch MD Work Phone: [facility] 01-13-2025 17:15-0400 Body temperature 98.2 [degF] Kd Couch MD Work Phone: [facility] [employer] 01-13-2025 17:15-0400 Respiratory rate 16 /min Kd Couch MD Work Phone: [facility] [employer] 01-11-2025 21:02-0400 Diastolic blood pressure 73 mm[Hg] Bridgette Sargent MD Work Phone: [facility] [employer] 01-11-2025 21:02-0400 Heart rate 80 /min Bridgette Sargent MD Work Phone: [facility] [employer] 01-11-2025 21:02-0400 Respiratory rate 20 /min Bridgette Sargent MD Work Phone: [facility] [employer] 01-11-2025 21:02-0400 SaO2% (BldA) [Mass fraction] 98 % Bridgette Sargent MD Work Phone: [facility] [employer] 01-11-2025 21:02-0400 Systolic blood pressure 120 mm[Hg] Bridgette Sargent MD Work Phone: [facility] [employer] 01-11-2025 19:26-0400 Body height 165.1 cm Bridgette Sargent MD Work Phone: [facility] [employer] 01-11-2025 19:26-0400 Body mass index (BMI) [Ratio] 28.12 kg/m2 Bridgette Sargent MD Work Phone: [facility] [employer] 01-11-2025 19:26-0400 Body temperature 98.1 [degF] Bridgette Sargent MD Work Phone: [facility] [employer] 01-11-2025 19:26-0400 Body weight 76.66 kg Bridgette Sargent MD Work Phone: [facility] 12-05-2024 12:50-0400 Body height 165.1 cm Tom Lemus DO Work Phone: [facility] 12-05-2024 12:50-0400 Body mass index (BMI) [Ratio] 28.19 kg/m2 Tom Miltons DO Work Phone: [facility] 12-05-2024 12:50-0400 Body temperature 98.29 [degF] Tom Miltons DO Work Phone: [facility] 12-05-2024 12:50-0400 Body weight 76.84 kg Tom Miltons DO Work Phone: [facility] 12-05-2024 12:50-0400 Diastolic blood pressure 62 mm[Hg] Tom Miltons DO Work Phone: [facility] 12-05-2024 12:50-0400 Heart rate 100 /min Tom Miltons DO Work Phone: [facility] 12-05-2024 12:50-0400 Respiratory rate 20 /min Tom Miltons DO Work Phone: [facility] 12-05-2024 12:50-0400 SaO2% (BldA) [Mass fraction] 98 % Tom Lemus DO Work Phone: [facility] 12-05-2024 12:50-0400 Systolic blood pressure 108 mm[Hg] Tom Lemus DO Work Phone: [facility] 10-12-2024 08:50-0400 Body height 165.1 cm Leighton Staton MD Work Phone: [facility] 10-12-2024 08:50-0400 Body mass index (BMI) [Ratio] 27.79 kg/m2 Leighton Staton MD Work Phone: [facility] 10-12-2024 08:50-0400 Body weight 75.75 kg Leighton Staton MD Work Phone: [facility] 10-12-2024 08:50-0400 Diastolic blood pressure 82 mm[Hg] Leighton Staton MD Work Phone: [facility] 10-12-2024 08:50-0400 Systolic blood pressure 110 mm[Hg] Leighton Staton MD Work Phone: [facility] 09-26-2024 14:14-0400 Body mass index (BMI) [Ratio] 27.59 kg/m2 Ron Bianca DO Work Phone: [facility] 09-26-2024 14:14-0400 Body weight 75.21 kg Ron Bianca DO Work Phone: [facility] 09-26-2024 14:14-0400 Diastolic blood pressure 70 mm[Hg] Ron Bianca DO Work Phone: [facility] 09-26-2024 14:14-0400 Systolic blood pressure 120 mm[Hg] Ron Bianca DO Work Phone: [facility] 08-29-2024 16:23-0400 Body height 165.1 cm Tom Miltons DO Work Phone: [facility] 08-29-2024 16:23-0400 Body mass index (BMI) [Ratio] 26.49 kg/m2 Tom Miltons DO Work Phone: [facility] 08-29-2024 16:23-0400 Body temperature 98.49 [degF] Tom Farmerhas DO Work Phone: [facility] 08-29-2024 16:23-0400 Body weight 72.21 kg Tom Farmerhas DO Work Phone: [facility] 08-29-2024 16:23-0400 Diastolic blood pressure 68 mm[Hg] Tom Farmerhas DO Work Phone: [facility] 08-29-2024 16:23-0400 Heart rate 90 /min Tom Karines DO Work Phone: [facility] 08-29-2024 16:23-0400 Respiratory rate 18 /min Tom Karines DO Work Phone: [facility] [employer] 08-29-2024 16:23-0400 SaO2% (BldA) [Mass fraction] 99 % Tom Lemus DO Work Phone: [facility] [employer] 08-29-2024 16:23-0400 Systolic blood pressure 98 mm[Hg] Tom Lemus DO Work Phone: [facility] [employer] 08-10-2024 14:58-0400 Body height 165.1 cm Kendall Maria G DO Work Phone: [facility] [employer] 08-10-2024 14:58-0400 Body mass index (BMI) [Ratio] 26.63 kg/m2 Kendall Maria G DO Work Phone: [facility] [employer] 08-10-2024 14:58-0400 Body weight 72.58 kg Kendall Maria G DO Work Phone: [facility] [employer] 08-10-2024 14:58-0400 Diastolic blood pressure 70 mm[Hg] Kendall Maria G DO Work Phone: [facility] [employer] 08-10-2024 14:58-0400 Heart rate 90 /min Kendall Maria G DO Work Phone: [facility] [employer] 08-10-2024 14:58-0400 SaO2% (BldA) [Mass fraction] 98 % Kendall Maria G DO Work Phone: [facility] [employer] 08-10-2024 14:58-0400 Systolic blood pressure 134 mm[Hg] Kendall Maria G DO Work Phone: [facility] [employer] 07-27-2024 01:11-0500 Body temperature 99.81 [degF] Kd Couch MD [facility] 07-27-2024 01:08-0500 Heart rate 85 /min Kd Couch MD [facility] 07-27-2024 01:08-0500 Respiratory rate 19 /min Kd Couch MD Work Phone: [facility] 07-27-2024 01:08-0500 SaO2% (BldA) [Mass fraction] 100 % Kd Couch MD Work Phone: [facility] [employer] 07-27-2024 00:26-0500 Diastolic blood pressure 70 mm[Hg] Kd Couch MD Work Phone: [facility] 07-27-2024 00:26-0500 Systolic blood pressure 106 mm[Hg] Kd Couch MD Work Phone: [facility] [employer] 07-26-2024 22:30-0500 Body height 165.1 cm Kd Couch MD Work Phone: [facility] [employer] 07-26-2024 22:30-0500 Body mass index (BMI) [Ratio] 25.96 kg/m2 Kd Couch MD Work Phone: [facility] [employer] 07-26-2024 22:30-0500 Body weight 70.76 kg Kd Couch MD Work Phone: [facility] [employer] 06-22-2024 15:25-0500 Body height 165.1 cm Leighton Staton MD Work Phone: [facility] 06-22-2024 15:25-0500 Body mass index (BMI) [Ratio] 25.79 kg/m2 Leighton Staton MD Work Phone: [facility] 06-22-2024 15:25-0500 Body weight 70.31 kg Leighton Staton MD Work Phone: [facility] 06-22-2024 15:25-0500 Diastolic blood pressure 68 mm[Hg] Leighton Staton MD Work Phone: [facility] 06-22-2024 15:25-0500 Heart rate 78 /min Leighton Staton MD Work Phone: [employer] 06-22-2024 15:25-0500 Systolic blood pressure 111 mm[Hg] [facility]ight[facility] 06-08-2024 10:08-0500 Body height 165.1 cm Tom Lemus DO [facility] 06-08-2024 10:08-0500 Body mass index (BMI) [Ratio] 24.93 kg/m2 Tom Lemus DO [facility] 06-08-2024 10:08-0500 Body temperature 98.6 [degF] Tom Lemus DO [facility] 06-08-2024 10:08-0500 Body weight 67.95 kg Tom Lemus DO [facility] 06-08-2024 10:08-0500 Diastolic blood pressure 60 mm[Hg] Tom Lemus DO [facility] 06-08-2024 10:08-0500 Heart rate 93 /min Tom Lemus DO [facility] 06-08-2024 10:08-0500 SaO2% (BldA) [Mass fraction] 99 % Tom Lemus DO [facility] 06-08-2024 10:08-0500 Systolic blood pressure 100 mm[Hg] Tom Lemus DO [facility] 06-05-2024 17:30-0500 Body temperature 98.01 [degF] Bridgette Sargent MD Work Phone: [facility] 06-05-2024 17:30-0500 Diastolic blood pressure 81 mm[Hg] Bridgette Sargent MD Work Phone: [facility] 06-05-2024 17:30-0500 Heart rate 87 /min Bridgette Sargent MD Work Phone: [facility] 06-05-2024 17:30-0500 Respiratory rate 16 /min Bridgette Sargent MD Work Phone: [facility] 06-05-2024 17:30-0500 SaO2% (BldA) [Mass fraction] 100 % Bridgette Sargent MD Work Phone: [facility] 06-05-2024 17:30-0500 Systolic blood pressure 118 mm[Hg] Bridgette Sargent MD Work Phone: [facility] 03-27-2024 10:51-0400 Body mass index (BMI) [Ratio] 25.46 kg/m2 Yovana Macon PA Work Phone: [facility] 03-27-2024 10:51-0400 Body weight 69.4 kg Yovana Macon PA Work Phone: [facility] 03-27-2024 10:51-0400 Diastolic blood pressure 72 mm[Hg] Yovana Macon PA Work Phone: [facility] 03-27-2024 10:51-0400 Systolic blood pressure 118 mm[Hg] Yovana Macon PA Work Phone: [facility] 02-21-2024 13:46-0400 Body mass index (BMI) [Ratio] 24.79 kg/m2 Yovana Macon PA Work Phone: [facility] 02-21-2024 13:46-0400 Body weight 67.59 kg Yovana Bo PA Work Phone: [facility] 02-21-2024 13:46-0400 Diastolic blood pressure 62 mm[Hg] Yovana Macon PA Work Phone: [facility] 02-21-2024 13:46-0400 Systolic blood pressure 110 mm[Hg] Yovana Bo PA Work Phone: [facility] 02-09-2024 14:28-0400 Body height 165.1 cm Tom Lemus Work Phone: [facility] 02-09-2024 14:28-0400 Body mass index (BMI) [Ratio] 24.06 kg/m2 Tom Lemus DO Work Phone: [facility] 02-09-2024 14:28-0400 Body temperature 98.1 [degF] Tom Lemus DO Work Phone: [facility] 02-09-2024 14:28-0400 Body weight 65.59 kg Tom Lemus DO Work Phone: [facility] 02-09-2024 14:28-0400 Diastolic blood pressure 70 mm[Hg] Tom Lemus DO Work Phone: [facility] 02-09-2024 14:28-0400 Heart rate 74 /min Tom Lemus DO Work Phone: [facility] 02-09-2024 14:28-0400 SaO2% (BldA) [Mass fraction] 98 % Tom Lemus DO Work Phone: [facility] 02-09-2024 14:28-0400 Systolic blood pressure 118 mm[Hg] Tom Lemus DO Work Phone: [facility] 01-16-2024 15:48-0400 Body mass index (BMI) [Ratio] 24.79 kg/m2 Ron Bianca DO Work Phone: [facility] 01-16-2024 15:48-0400 Body weight 67.59 kg Ron Bianca DO Work Phone: [facility] 01-16-2024 15:48-0400 Diastolic blood pressure 68 mm[Hg] Ron Bianca DO Work Phone: [facility] 01-16-2024 15:48-0400 Systolic blood pressure 112 mm[Hg] Ron Bianca DO Work Phone: [facility] 01-10-2024 15:41-0400 Body height 165.1 cm Shireen VILLEGAS Work Phone: [facility] 01-10-2024 15:41-0400 Body mass index (BMI) [Ratio] 24.56 kg/m2 Shireen Chavez APRN-LILIYA Work Phone: [facility] 01-10-2024 15:41-0400 Body temperature 98.4 [degF] Shireen VILLEGAS Work Phone: [facility] [employer] 01-10-2024 15:41-0400 Body weight 66.95 kg Shireen Chavez APRN-LILIYA Work Phone: [facility] 01-10-2024 15:41-0400 Diastolic blood pressure 62 mm[Hg] Shireen Chavez APRN-LILIYA Work Phone: [facility] 01-10-2024 15:41-0400 Heart rate 102 /min Shireen Chavez APRN-LILIYA Work Phone: [facility] 01-10-2024 15:41-0400 Respiratory rate 20 /min Shireen Chavez APRN-LILIYA Work Phone: [facility] [employer] 01-10-2024 15:41-0400 SaO2% (BldA) [Mass fraction] 98 % Shireen VILLEGAS Work Phone: [facility] 01-10-2024 15:41-0400 Systolic blood pressure 112 mm[Hg] Shireen Chavez APRN-LILIYA Work Phone: [facility] 01-08-2024 14:00-0400 Diastolic blood pressure 71 mm[Hg] Courtney Hernandez MD Work Phone: [facility] [employer] 01-08-2024 14:00-0400 Heart rate 78 /min Courtney Heranndez MD Work Phone: [facility] [employer] 01-08-2024 14:00-0400 Respiratory rate 23 /min Courtney Hernandez MD Work Phone: [facility] [employer] 01-08-2024 14:00-0400 SaO2% (BldA) [Mass fraction] 98 % Courtney Hernandez MD Work Phone: [facility] [employer] 01-08-2024 14:00-0400 Systolic blood pressure 110 mm[Hg] Courtney Hernandez MD Work Phone: [facility] [employer] 01-07-2024 22:47-0400 Body temperature 37.0 Courtney Hernandez MD [facility] 01-07-2024 22:27-0400 Body mass index (BMI) [Ratio] 23.8 kg/m2 Courtney Hernandez MD Work Phone: [facility] [employer] 01-07-2024 22:27-0400 Body weight 64.86 kg Courtney Hernandez MD [facility] 11-21-2023 16:35-0400 Body height 165.1 cm Tom [facility]iltons DO [facility] 11-21-2023 16:35-0400 Body mass index (BMI) [Ratio] 23.93 kg/m2 Tom Marlenyhas DO Work Phone: [facility] 11-21-2023 16:35-0400 Body temperature 98.2 [degF] Tom Farmerhas DO [facility] 11-21-2023 16:35-0400 Body weight 65.23 kg Tom Farmerhas DO [facility] 11-21-2023 16:35-0400 Diastolic blood pressure 70 mm[Hg] Tom Farmerhas DO Work Phone: [employer] 11-21-2023 16:35-0400 Heart rate 66 /min Tom Farmerhas DO [facility] 11-21-2023 16:35-0400 Respiratory rate 20 /min Tom Miltons DO [facility] 06-24-2024 16:35-0400 SaO2% (BldA) [Mass fraction] 99 % Tom Lemus DO Work Phone: [facility] 11-21-2023 16:35-0400 Systolic blood pressure 100 mm[Hg] Tom Lemus DO Work Phone: [facility] 11-20-2023 21:45-0400 Diastolic blood pressure 83 mm[Hg] Noemí Garcia DO Work Phone: [facility] [employer] 11-20-2023 21:45-0400 Heart rate 55 /min Noemí Garcia DO Work Phone: [facility] [employer] 11-20-2023 21:45-0400 SaO2% (BldA) [Mass fraction] 98 % Noemí Garcia DO Work Phone: [facility] [employer] 11-20-2023 21:45-0400 Systolic blood pressure 133 mm[Hg] Noemí Garcia DO Work Phone: [facility] [employer] 11-20-2023 19:42-0400 Body height 165.1 cm Noemí Garcia DO Work Phone: [facility] [employer] 11-20-2023 19:42-0400 Body mass index (BMI) [Ratio] 23.8 kg/m2 Noemí Garcia DO Work Phone: [facility] [employer] 11-20-2023 19:42-0400 Body temperature 98.01 [degF] Noemí Garcia DO Work Phone: [facility] [employer] 11-20-2023 19:42-0400 Body weight 64.86 kg Noemí Garcia DO Work Phone: [facility] [employer] 11-20-2023 19:42-0400 Respiratory rate 20 /min Noemí Garcia DO Work Phone: [facility] [employer] 07-07-2023 10:35-0500 Body height 165.1 cm Tom Lemus DO Work Phone: [facility] 07-07-2023 10:35-0500 Body mass index (BMI) [Ratio] 25.61 kg/m2 Tom Farmerhas DO Work Phone: [facility] 07-07-2023 10:35-0500 Body temperature 97.7 [degF] Tom Farmerhas DO Work Phone: [facility] 07-07-2023 10:35-0500 Body weight 69.81 kg Tom Farmerhas DO Work Phone: [facility] 07-07-2023 10:35-0500 Diastolic blood pressure 70 mm[Hg] Tom Farmerhas DO Work Phone: [facility] 07-07-2023 10:35-0500 Heart rate 100 /min Tom Farmerhas DO Work Phone: [facility] 07-07-2023 10:35-0500 SaO2% (BldA) [Mass fraction] 96 % Tom Farmerhas DO Work Phone: [facility] 07-07-2023 10:35-0500 Systolic blood pressure 100 mm[Hg] Tom Farmerhas DO Work Phone: [facility] 05-19-2023 15:36-0500 Diastolic blood pressure 59 mm[Hg] DO Tom Miltons Work Phone: [facility] 05-19-2023 15:36-0500 Heart rate 95 /min DO Tom Marlenyhas Work Phone: [facility] 05-19-2023 15:36-0500 Respiratory rate 16 /min DO Tom Marlenyhas Work Phone: [facility] 05-19-2023 15:36-0500 SaO2% (BldA) [Mass fraction] 99 % DO Tom Yuhas Work Phone: [facility] 05-19-2023 15:36-0500 Systolic blood pressure 109 mm[Hg] DO Tom Marlenyhas Work Phone: [facility] 05-19-2023 12:39-0500 Body height 165.1 cm DO Tom Lemus Work Phone: [facility] 05-19-2023 12:39-0500 Body weight 70.76 kg DO Tom Lemus Work Phone: [facility] 05-10-2023 11:11-0500 Diastolic blood pressure 78 mm[Hg] Rishi YOUNG [facility] 05-10-2023 11:11-0500 Heart rate 72 /min Rishi YOUNG [facility] 05-10-2023 11:11-0500 Systolic blood pressure 117 mm[Hg] Rishi YOUNG [facility] 04-27-2023 13:30-0500 Body height 166.37 cm Imad Asaad Other [facility] [employer] Other 04-27-2023 13:30-0500 Body mass index (BMI) [Ratio] 25.71 kg/m2 Imad Asaad Other [employer] [facility] [employer] Other 04-27-2023 13:30-0500 Body weight 71.17 kg Imad Asaad Other [employer] Other 02-11-2023 18:20-0400 Body height 166.37 cm Sarah Anderson Other [employer] Other 02-11-2023 18:20-0400 Body mass index (BMI) [Ratio] 27.69 kg/m2 Sarah Anderson Other [employer] Other 02-11-2023 18:20-0400 Body temperature 98.1 [degF] Sarah Anderson Other [employer] Other 02-11-2023 18:20-0400 Body weight 76.66 kg Saarh Anderson Other [employer] Other 02-11-2023 18:20-0400 Diastolic blood pressure 78 mm[Hg] Sarah Aliceamond Other [employer] Other 02-11-2023 18:20-0400 Respiratory rate 18 /min Sarah Aliceamond Other [employer] Other 02-11-2023 18:20-0400 SaO2% (BldA) [Mass fraction] 99 % Sarah Anderson Other [employer] Other 02-11-2023 18:20-0400 Systolic blood pressure 116 mm[Hg] Sarah Anderson Other [employer] Other 02-06-2023 07:30-0400 Body temperature 98.1 [degF] DO Tom Miltons Work Phone: [facility] 02-06-2023 07:30-0400 Diastolic blood pressure 60 mm[Hg] DO Tom Yuhas Work Phone: [facility] 02-06-2023 07:30-0400 Heart rate 83 /min DO Tom Yuhas Work Phone: [facility] 02-06-2023 07:30-0400 Respiratory rate 18 /min DO Tom Yuhas Work Phone: [facility] 02-06-2023 07:30-0400 SaO2% (BldA) [Mass fraction] 97 % DO Tom Yuhas Work Phone: [facility] 02-06-2023 07:30-0400 Systolic blood pressure 102 mm[Hg] DO Tom Lemus Work Phone: [facility] 02-03-2023 14:17-0400 Body height 165.1 cm DO Tom Lemus Work Phone: [facility] 02-02-2023 23:53-0400 Body weight 74.15 kg DO Tom Lemus Work Phone: [facility] 06-30-2022 23:12-0500 Diastolic blood pressure 56 mm[Hg] Courtney Hernandez MD Work Phone: [employer] 06-30-2022 23:12-0500 Heart rate 88 /min Courtney Hernandez MD Work Phone: [employer] 06-30-2022 23:12-0500 Respiratory rate 16 /min Courtney Hernandez MD Work Phone: [employer] 06-30-2022 23:12-0500 Systolic blood pressure 100 mm[Hg] Courtney Hernandez MD Work Phone: [employer] 06-30-2022 22:21-0500 Body height 165.1 cm Courtney Hernandez MD Work Phone: [employer] 06-30-2022 21:13-0500 SaO2% (BldA) [Mass fraction] 98 % Courtney Hernandez MD Work Phone: [employer] 06-30-2022 18:31-0500 Body mass index (BMI) [Ratio] 28.96 kg/m2 Courtney Hernandez MD Work Phone: [employer] 06-30-2022 18:31-0500 Body weight 78.93 kg Courtney Hernandez MD Work Phone: [employer] 06-30-2022 18:27-0500 Body temperature 98.4 [degF] Courtney Hernandez MD Work Phone: [employer] 06-17-2022 17:10-0500 Diastolic blood pressure 65 mm[Hg] Bridgette Ortega [employer] 06-17-2022 17:10-0500 Systolic blood pressure 114 mm[Hg] Bridgette Ortega [employer] 06-17-2022 17:10-0500 Systolic blood pressure 110 mm[Hg] Bridgette Ortega [employer] 06-17-2022 17:00-0500 Body height 166.37 cm Bridgette Ortega [employer] 06-17-2022 17:00-0500 Body mass index (BMI) [Ratio] 28.43 kg/m2 Bridgette Ortega [employer] 06-17-2022 17:00-0500 Body surface area Derived from formula 1.91 m2 Bridgette Ortega [employer] 06-17-2022 17:00-0500 Body weight 78.7 kg Bridgette Ortega [employer] 06-17-2022 17:00-0500 Body weight 0.1 {percentile} Bridgette Ortega [employer] 06-17-2022 17:00-0500 Diastolic blood pressure 70 mm[Hg] Bridgette Ortega [employer] 06-17-2022 17:00-0500 Heart rate 72 /min Bridgette [employer] 06-17-2022 17:00-0500 Systolic blood pressure 118 mm[Hg] Bridgette [employer] 06-15-2022 17:35-0500 Body temperature 98.1 [degF] Maricel Ortega [employer] 06-15-2022 17:35-0500 Body weight 77.57 kg Maricel [employer] 06-15-2022 17:35-0500 Diastolic blood pressure 62 mm[Hg] Maricel [employer] 06-15-2022 17:35-0500 Heart rate 80 /min [employer] 06-15-2022 17:35-0500 Respiratory rate 16 /min Maricel [employer] 06-15-2022 17:35-0500 Systolic blood pressure 110 mm[Hg] [employer] 05-17-2022 11:45-0500 SaO2% (BldA) [Mass fraction] 98 % [employer] 05-17-2022 10:59-0500 Body height 166.37 cm [employer] 05-17-2022 10:59-0500 Body mass index (BMI) [Ratio] 28.19 kg/m2 [employer] 05-17-2022 10:59-0500 Body surface area Derived from formula 1.9 m2 [employer] 05-17-2022 10:59-0500 Body temperature 98.5 [degF] [employer] 05-17-2022 10:59-0500 Body weight 78.02 kg [employer] 05-17-2022 10:59-0500 Body weight 0.1 {percentile} [employer] 05-17-2022 10:59-0500 Diastolic blood pressure 60 mm[Hg] [employer] 05-17-2022 10:59-0500 Heart rate 90 /min Maricel Ortega [employer] 05-17-2022 10:59-0500 Respiratory rate 18 /min Maricel Ortega [facility] [employer] 05-17-2022 10:59-0500 Systolic blood pressure 112 mm[Hg] Maricel Ortega [employer] 02-10-2022 20:45-0400 Diastolic blood pressure 64 mm[Hg] DO Tom Miltons Work Phone: [facility] 02-10-2022 20:45-0400 Heart rate 81 /min DO Tom Marlenyhas Work Phone: [facility] 02-10-2022 20:45-0400 Respiratory rate 16 /min DO Tom Farmerhas Work Phone: [facility] 02-10-2022 20:45-0400 SaO2% (BldA) [Mass fraction] 99 % DO Tom Farmerhas Work Phone: [facility] 02-10-2022 20:45-0400 Systolic blood pressure 100 mm[Hg] DO Tom Marlenyhas Work Phone: [facility] 02-10-2022 14:17-0400 Body height 165.1 cm DO Tom Farmerhas Work Phone: [facility] 02-10-2022 14:17-0400 Body weight 81.64 kg DO Tom Farmerhas Work Phone: [facility] 02-09-2022 10:01-0400 Body height 166.37 cm Kaleigh Guevara [employer] 02-09-2022 10:01-0400 Diastolic blood pressure 64 mm[Hg] Kaleigh Guevara [employer] 02-09-2022 10:01-0400 Heart rate 120 /min Kaleigh Guevara [employer] 02-09-2022 10:01-0400 Systolic blood pressure 118 mm[Hg] Kaleigh Guevara [employer] 01-29-2022 11:30-0400 Body height 166.37 cm Bridgette [employer] 01-29-2022 11:30-0400 Diastolic blood pressure 62 mm[Hg] Bridgette Sargent [employer] 01-29-2022 11:30-0400 Heart rate 100 /min Bridgette [employer] 01-29-2022 11:30-0400 Systolic blood pressure 114 mm[Hg] Bridgette Sargent [employer] 01-25-2022 10:30-0400 Body height 166.37 cm Tae Natarajan Other [employer] Other 01-25-2022 10:30-0400 Body mass index (BMI) [Ratio] 29.49 kg/m2 Tae Natarajan Other [employer] Other 01-25-2022 10:30-0400 Body temperature 97.8 [degF] Tae Natarajan Other [employer] Other 01-25-2022 10:30-0400 Body weight 81.65 kg Tae Natarajan Other [employer] Other 01-25-2022 10:30-0400 Diastolic blood pressure 64 mm[Hg] Tae Natarajan Other [employer] Other 01-25-2022 10:30-0400 SaO2% (BldA) [Mass fraction] 99 % Tae Natarajan Other [employer] Other 01-25-2022 10:30-0400 Systolic blood pressure 110 mm[Hg] Tae Natarajan Other [employer] Other 01-19-2022 10:59-0400 Body height 166.37 cm Bridgette [employer] 01-19-2022 10:59-0400 Body mass index (BMI) [Ratio] 29.5 kg/m2 Bridgette Sargent [employer] 01-19-2022 10:59-0400 Body surface area Derived from formula 1.94 m2 Bridgette [employer] 01-19-2022 10:59-0400 Body weight 81.65 kg Bridgette [employer] 01-19-2022 10:59-0400 Diastolic blood pressure 72 mm[Hg] Bridgette Sargent [employer] 01-19-2022 10:59-0400 Heart rate 112 /min Bridgette [employer] 01-19-2022 10:59-0400 Systolic blood pressure 114 mm[Hg] Bridgette Sargent [employer] 10-11-2021 18:26-0400 Diastolic blood pressure 77 mm[Hg] Tom Marlenyjulien Work Phone: [employer] 10-11-2021 18:26-0400 Systolic blood pressure 130 mm[Hg] Tom Lemus Work Phone: [employer] 10-11-2021 14:00-0400 Body mass index (BMI) [Ratio] 28.46 kg/m2 Tom Marlenyjulein Work Phone: [employer] 10-11-2021 14:00-0400 Body temperature 97.81 [degF] Tom Lemus Work Phone: [facility] [employer] 10-11-2021 14:00-0400 Body weight 77.56 kg Tom Lemus Work Phone: [facility] [employer] 10-11-2021 14:00-0400 Heart rate 95 /min Tom Lemus Work Phone: [facility] [employer] 10-11-2021 14:00-0400 Respiratory rate 16 /min Tom Lemus Work Phone: [facility] [employer] 10-11-2021 14:00-0400 SaO2% (BldA) [Mass fraction] 98 % Tom Lemus Work Phone: [facility] [employer] 09-29-2021 13:04-0400 Blood Pressure Location Rishi YOUNG [facility] 09-29-2021 13:04-0400 Diastolic blood pressure 83 mm[Hg] Rishi YOUNG [facility] 09-29-2021 13:04-0400 Heart rate 100 /min Rishi YOUNG [facility] 09-29-2021 13:04-0400 Systolic blood pressure 124 mm[Hg] Rishi YOUNG [facility] 09-04-2021 09:22-0400 Blood Pressure Location Rishi YOUNG [facility] 09-04-2021 09:22-0400 Diastolic blood pressure 67 mm[Hg] Rishi YOUNG [facility] 09-04-2021 09:22-0400 Heart rate 78 /min Rishi YOUNG [facility] 09-04-2021 09:22-0400 Respiratory rate 16 /min Rishi YOUNG [facility] 09-04-2021 09:22-0400 Systolic blood pressure 97 mm[Hg] Rishi YOUNG [facility] 03-16-2020 15:12-0400 BMI (Body Mass Index) 25.96 kg/m2 [facility] [place] 03-16-2020 15:12-0400 Body Temperature 99 [degF] [facility] [place], [place] 03-16-2020 15:12-0400 Body weight 70.76 kg [facility] , [place] 03-16-2020 15:12-0400 BP Diastolic 69 mm[Hg] [facility] [place] 03-16-2020 15:12-0400 BP Systolic 125 mm[Hg] [place] 03-16-2020 15:12-0400 Pulse (Heart Rate) 77 /min [facility] [place] 03-16-2020 15:12-0400 Pulse Oximetry 99 % [facility] [place] 03-16-2020 15:12-0400 Respiratory Rate 18 /min [facility] [place] 10-05-2019 13:30-0400 Body Temperature 98.1 [degF] [facility], [place] 10-05-2019 13:30-0400 BP Diastolic 72 mm[Hg] [facility] [place] 10-05-2019 13:30-0400 BP Systolic 110 mm[Hg] [facility] [place] 10-05-2019 13:30-0400 Pulse (Heart Rate) 76 /min [place], [place] 10-05-2019 13:30-0400 Pulse Oximetry 100 % [facility] [place] 10-05-2019 13:30-0400 Respiratory Rate 18 /min [facility], [place] 10-05-2019 10:26-0400 BMI (Body Mass Index) 24.37 kg/m2 [place], [place] 10-05-2019 10:26-0400 Body weight 68.49 kg [place], [place] 10-05-2019 10:26-0400 Height 167.6 cm [place], [place] Encounters Encounter Date Encounter Type Care Provider Facility Start: 01-29-2025 End: 01-29-2025 Bamboo flowsheet Ron Bianca DO Work Phone: [facility] Start: 01-29-2025 End: 01-29-2025 Bamboo flowsheet Ron Bianca DO Work Phone: [facility] Start: 01-24-2025 End: 01-25-2025 ambulatory Priscilla Gonzales MD Work Phone: Epilepsy Comment on above: Return to work note Start: 01-22-2025 End: 01-22-2025 [facility] Yevgeniy Wick PhD Work Phone: Neurology Comment on above: 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) Start: 01-16-2025 End: 01-17-2025 Telephone encounter Priscilla Gonzales MD Work Phone: Neurology Comment on above: Letter (Diagnosis Le tter) Start: 01-15-2025 End: 01-15-2025 Chart abstracting Ladan Ayala APRN.[employer]CIAL DIET COOK Work Phone: Neurology Comment on above: Video EEG Monitoring Start: 01-14-2025 End: 01-15-2025 Telephone encounter Priscilla Gonzales MD Work Phone: Neurology Comment on above: Seizures Start: 01-13-2025 End: 01-13-2025 Emergency department patient visit Kd Couch MD Work Phone: [facility] Comment on above: Seizure-like activit y (HCC) (Primary Dx) Start: 01-11-2025 End: 01-11-2025 Emergency department patient visit BRIDGETTE SRAGENT [facility] Comment on above: Seizure (HCC) (Prima ry Dx); Seizure disorder (HCC) Start: 01-11-2025 End: 01-14-2025 Telephone encounter Jana Vásquez [facility] Department of [facility] Comment on above: Numbness; Arm Pain Seizures Start: 01-03-2025 End: 01-17-2025 ambulatory Chadd Fisher APRN.CNP Work Phone: Neurology Comment on above: MRI showing thoracic outlet syndrome Start: 12-28-2024 End: 12-28-2024 ambulatory [facility] Start: 12-19-2024 End: 12-20-2024 Emergency department patient visit [facility] Start: 12-19-2024 End: 12-19-2024 ambulatory Niles Aragon RN [facility] Jael thomas Start: 12-05-2024 End: 12-05-2024 Office outpatient visit [address] [facility] DO Work Phone: [facility] Comment on above: Cervical radiculopat hy (Primary Dx); Nausea and vomiting, unspecified vomiting type Start: 12-05-2024 End: 12-05-2024 ambulatory [facility] Start: 10-19-2024 End: 10-19-2024 ambulatory JESICA R [facility] Start: 10-15-2024 End: 10-15-2024 Telemedicine consultation with patient Priscilla Gonzales MD Work Phone: Epilepsy Start: 10-15-2024 End: 10-15-2024 ambulatory Priscilla Gonzales MD Work Phone: Epilepsy Comment on above: Psychogenic nonepile ptic seizure (Primary Dx) Psychogenic nonepile ptic seizure Start: 10-12-2024 End: 10-12-2024 Office outpatient visit 15 minutes Leighton Staton MD Work Phone: [facility], [facility] Department [facility] Comment on above: Other migraine witho ut status migrainosus, not intractable (Primary Dx); On valproic acid therapy; Migraine aura occurring with and without headache Start: 10-12-2024 End: 10-12-2024 [facility] Start: 10-04-2024 End: 10-05-2024 Emergency department patient visit [facility] Start: 10-02-2024 End: 12-02-2024 Follow-up encounter Chadd Fisher APRN.CNP Work Phone: Neurology Start: 09-27-2024 End: 09-27-2024 ambulatory [facility] Start: 09-26-2024 End: 09-26-2024 Bamboo flowsheet Ron Bianca DO Work Phone: [facility] Start: 09-26-2024 End: 09-26-2024 Bamboo flowsheet Ron Bianca DO Work Phone: [facility] Start: 09-26-2024 End: 09-26-2024 ambulatory RON BIANCA Not Available Start: 09-26-2024 End: 09-26-2024 Office outpatient visit 15 minutes Ron Bianca DO Work Phone: [facility] Comment on above: Hot flashes; Pelvic pain in female; PCOS (polycystic ovarian syndrome) Start: 09-04-2024 End: 09-05-2024 Refill Antony Troy CMA [facility] Department [facility] Comment on above: Other migraine witho ut status migrainosus, not intractable Start: 08-31-2024 End: 08-31-2024 ambulatory Chadd Fisher APRN.[employer] Work Phone: Neurology Comment on above: Transient loss of co nsciousness (Primary Dx); Heart palpitations; Orthostatic lightheadedness; Psychogenic nonepileptic seizure Start: 08-31-2024 End: 08-31-2024 Telemedicine consultation with patient Chadd Fisher APRN.[employer] Work Phone: Neurology Start: 08-29-2024 End: 08-29-2024 Transitional care manage srvc 14 day discharge Tom Mendiola Marlenyjulien DO Work Phone: [facility] Comment on above: POTS (postural ortho static tachycardia syndrome) (Primary Dx); Nausea and vomiting, unspecified vomiting type; Chalazion of left upper eyelid; Bilateral thoracic back pain, unspecified chronicity Start: 08-29-2024 End: 08-29-2024 ambulatory [facility] Start: 08-20-2024 End: 08-20-2024 Patient encounter procedure Fany Boone MD Work Phone: Neurology Comment on above: Seizure-like activit y (HCC) (Primary Dx) Start: 08-16-2024 End: 08-16-2024 Evaluation and management of inpatient [facility] Start: 08-16-2024 End: 08-16-2024 Evaluation and management of inpatient [facility] Start: 08-15-2024 End: 08-16-2024 Evaluation and management of inpatient [facility] Start: 08-14-2024 End: 08-15-2024 Evaluation and management of inpatient [facility] Start: 08-13-2024 End: 08-14-2024 [facility] Start: 08-13-2024 End: 08-16-2024 Evaluation and management of inpatient ESHA SHAVER [facility] Start: 08-10-2024 End: 08-10-2024 Office outpatient new 45 minutes Kendall Cruz DO Work Phone: [facility] Comment on above: POTS (postural ortho static tachycardia syndrome) Start: 08-10-2024 End: 08-10-2024 ambulatory KENDALL CRUZ [facility] Start: 08-09-2024 End: 08-09-2024 Telephone encounter Isidro Douglas CMA [facility] Start: 08-08-2024 End: 08-13-2024 Orders Only Leighton Staton MD Work Phone: [facility] Comment on above: Other migraine witho ut status migrainosus, not intractable (Primary Dx) Start: 08-07-2024 End: 08-08-2024 Emergency department patient visit [facility] Start: 08-07-2024 End: 08-08-2024 Emergency department patient visit [facility] Start: 08-07-2024 End: 08-07-2024 Telephone encounter Nehal Gates [facility] Comment on above: Headache Start: 08-04-2024 End: 08-05-2024 Emergency department patient visit [facility] Start: 08-04-2024 End: 08-04-2024 Telephone encounter Pearl Iniguez [facility] Comment on above: Migraine Start: 08-03-2024 End: 08-03-2024 Orders Only Leighton Staton MD Work Phone: [facility] Comment on above: Other migraine with status migrainosus, not intractable (Primary Dx) Medication Problem Start: 07-27-2024 End: 07-27-2024 Telephone encounter Kadi Shaver MD Work Phone: [facility] Comment on above: FMLA Start: 07-26-2024 End: 07-27-2024 Emergency department patient visit Kd Couch MD Work Phone: [facility] Comment on above: Nausea vomiting and diarrhea (Primary Dx); Syncope and collapse; Dehydration Start: 07-18-2024 End: 07-18-2024 Chart abstracting Kendall Cruz DO Work Phone: [facility] Start: 07-16-2024 End: 07-16-2024 Emergency department patient visit [facility] Start: 07-16-2024 End: 07-16-2024 Telephone encounter [facility] Comment on above: Memory Loss Start: 07-13-2024 End: 07-13-2024 Emergency department patient visit [facility] Start: 07-13-2024 End: 07-13-2024 ambulatory Chadd Fisher TEACHING ASSOCIATE.[employer] Work Phone: Neurology Comment on above: Transient loss of co nsciousness (Primary Dx); Orthostatic lightheadedness; Racing heart beat Start: 07-13-2024 End: 07-13-2024 Telemedicine consultation with patient Chadd Fisher APRN.[employer] Work Phone: Neurology Start: 07-04-2024 End: 07-04-2024 Orders Only Leighton Staton MD Work Phone: [facility] Comment on above: POTS (postural ortho static tachycardia syndrome) (Primary Dx) Results Start: 07-02-2024 End: 07-02-2024 ambulatory LEIGHTON BAH [facility] Start: 06-27-2024 End: 06-27-2024 Emergency department patient visit [facility] Start: 06-25-2024 End: 07-03-2024 Telephone encounter [facility] Start: 06-24-2024 End: 06-24-2024 Emergency department patient visit [facility] Start: 06-23-2024 End: 06-23-2024 Telephone encounter [facility] Comment on above: Seizures; Headache Start: 06-22-2024 End: 06-22-2024 Office outpatient visit 15 minutes Leighton Staton MD Work Phone: [facility] Comment on above: Syncope, unspecified syncope type (Primary Dx); Recurrent episodes of unresponsiveness; Nonepileptic episode ([facility]) Start: 06-22-2024 End: 06-22-2024 ambulatory [facility] Start: 06-19-2024 End: 06-19-2024 Documentation procedure Art Luna MD Work Phone: [facility] Start: 06-19-2024 End: 06-19-2024 Telephone encounter Kailee De Jesus [facility] Comment on above: New Patient Start: 06-14-2024 End: 06-15-2024 ambulatory [facility] Start: 06-08-2024 End: 06-08-2024 Office outpatient visit 25 minutes Tom Lemus DO Work Phone: [facility] Comment on above: Simple partial seizu re ([facility]) (Primary Dx); Orthostatic hypotension; Abnormal EKG Start: 06-08-2024 End: 06-08-2024 ambulatory [facility] Start: 06-06-2024 End: 06-06-2024 Emergency department patient visit [facility] Start: 06-05-2024 End: 06-05-2024 Emergency department patient visit [facility] Emergency Department Comment on above: Conversion disorder (Primary Dx) Start: 06-05-2024 End: 06-07-2024 Telephone encounter Tom Lemus DO Work Phone: [facility] Start: 05-06-2024 Emergency department patient visit [facility] Start: 04-21-2024 End: 04-21-2024 Emergency department patient visit [facility] Start: 03-27-2024 End: 03-27-2024 Bamboo flowsheet Yovana BURK Work Phone: [facility] Start: 03-27-2024 End: 03-27-2024 Bamboo flowsheet Yovana Macon PA Work Phone: [facility] Start: 03-27-2024 End: 03-27-2024 ambulatory YOVANA SORIANO Not Available Start: 03-27-2024 End: 03-27-2024 Postop follow up visit related to original px Yovana Soriano PA Work Phone: [facility] Comment on above: Postoperative visit; S/P hysterectomy Start: 02-21-2024 End: 02-21-2024 Bamboo flowsheet Yovana Soriano PA Work Phone: [facility] Start: 02-21-2024 End: 02-21-2024 Bamboo flowsheet Yovana Soriano PA Work Phone: [facility] Start: 02-21-2024 End: 02-21-2024 ambulatory YOVANA SORIANO Not Available Start: 02-21-2024 End: 02-21-2024 Postop follow up visit related to original px Yovana Soriano PA Work Phone: [facility] Comment on above: Postoperative visit; S/P hysterectomy Start: 02-16-2024 End: 02-16-2024 Clinisync Result Encounter Ron Bianca DO Work Phone: [facility] Unsolicited Start: 02-16-2024 End: 02-16-2024 Clinisync Result Encounter Ron Bianca DO Work Phone: [facility] Unsolicited Start: 02-15-2024 End: 02-15-2024 ambulatory DO Tom Lemus Work Phone: [facility] Work Phone: Start: 02-15-2024 End: 02-15-2024 Departed Referred DO Tom Lemus Work Phone: [facility] Start: 02-13-2024 End: 02-13-2024 Clinisync Result Encounter Ron Bianca DO Work Phone: [facility] Unsolicited Start: 02-13-2024 End: 02-13-2024 Clinisync Result Encounter Ron Valenzuela DO Work Phone: [facility] Unsolicited Start: 02-09-2024 End: 02-09-2024 ambulatory [facility] Ma[facility] Start: 02-09-2024 Encounter for genera l adult medical examination without abnormal findings [facility] Maury [facility] Start: 02-09-2024 End: 02-09-2024 Patient encounter status Tom Lemus DO Work Phone: [facility] [employer] Work Phone: Start: 02-09-2024 End: 02-09-2024 Periodic preventive med est patient 18-39 yrs Tom Lemus DO Work Phone: [facility] Comment on above: Wellness examination (Primary Dx); Somatic dysfunction of thoracic region; Bipolar 1 disorder ([facility]) Start: 01-31-2024 End: 01-31-2024 Clinisync Result Encounter Ron Valenzuela DO Work Phone: [facility] Unsolicited Start: 01-31-2024 End: 01-31-2024 Clinisync Result Encounter Ron Valenzuela DO Work Phone: [facility] Unsolicited Start: 01-24-2024 End: 01-24-2024 Telephone encounter Tom Lemus DO Work Phone: [facility] Start: 01-23-2024 End: 01-24-2024 Emergency department patient visit MELIZA ELIZONDO [facility] Start: 01-23-2024 End: 01-23-2024 Emergency department patient visit TOM Mendiola [facility] Start: 01-20-2024 End: 01-20-2024 Refill Tom Lemus DO Work Phone: [facility] Comment on above: Somatic dysfunction of cervical region; Somatic dysfunction of thoracic region Start: 01-16-2024 End: 01-16-2024 Departed Referred DO Tom Lemus Work Phone: [facility] Start: 01-16-2024 End: 01-16-2024 Patient encounter procedure Ron Valenzuela DO Work Phone: [facility] Comment on above: Pre-op examination; Menorrhagia with regular cycle; Pelvic pain in female; Dyspareunia in female; Dysmenorrhea; Endometriosis Start: 01-16-2024 End: 01-16-2024 Preprocedural examination done Ron Valenzuela DO Work Phone: [facility] Start: 01-16-2024 End: 01-16-2024 ambulatory DO Tom Lemus Work Phone: [facility] Comment on above: Acute cystitis with hematuria (Primary Dx) Start: 01-11-2024 End: 01-11-2024 Telephone encounter Tom Lmeus DO Work Phone: [facility] Start: 01-10-2024 End: 01-10-2024 ambulatory [facility] Start: 01-10-2024 End: 01-10-2024 Office outpatient visit 15 minutes Shireendiane Chavez TEACHING ASSOCIATE-SPECIAL DIET COOK Work Phone: [facility] Comment on above: Dysuria (Primary Dx) ; Acute cystitis with hematuria Start: 01-10-2024 End: 01-10-[address] [facility] Rishi [facility] Start: 01-10-2024 End: 01-11-2024 Telephone encounter Tom Lemus DO Work Phone: [facility] Start: 01-07-2024 End: 01-08-2024 Emergency department patient visit Courtney Hernandez MD Work Phone: [facility] Comment on above: Acute stress reactio n (Primary Dx) Start: 12-29-2023 End: 12-29-2023 Patient encounter procedure DO Tom Lemus Work Phone: [facility] Work Phone: Start: 12-29-2023 End: 12-29-2023 ambulatory DO Tom Lemus Work Phone: [facility] Work Phone: Start: 12-27-2023 End: 01-04-2024 Telephone encounter Tom Lemus DO Work Phone: [facility] [facility] Start: 12-17-2023 End: 12-18-2023 Refill Tom Lemus DO Work Phone: [facility] Comment on above: Somatic dysfunction of cervical region; Somatic dysfunction of thoracic region Start: 11-23-2023 End: 11-24-2023 Telephone encounter Ondina Thorpe CMA [facility] Start: 11-21-2023 End: 11-21-2023 Office outpatient visit 25 minutes Tom Lemus DO Work Phone: [facility] Comment on above: Benign paroxysmal po sitional vertigo of left ear (Primary Dx); Somatic dysfunction of cervical region; Somatic dysfunction of thoracic region; Bipolar 2 disorder ([facility]-H[facility]) Start: 11-20-2023 End: 11-20-2023 Emergency department patient visit Noemí Garcia DO Work Phone: [facility] ED Comment on above: Chest wall pain (Carolyn kurt Dx) Start: 11-20-2023 End: 11-20-2023 ambulatory Swati Cai RN [facility] [address] Start: 11-18-2023 End: 11-19-2023 ambulatory Niles Aragon RN [facility] [address] Start: 11-08-2023 End: 11-08-2023 ambulatory Rishi YOUNG Facility:[facility] Start: 11-08-2023 End: 11-08-2023 Patient encounter procedure Rishi YOUNG [facility] Start: 11-08-2023 End: 11-08-2023 ambulatory RON BIANCA Not Available Start: 11-01-2023 End: 11-01-2023 ambulatory RON BIANCA Not Available Start: 09-27-2023 End: 09-27-2023 ambulatory Rishi YOUNG Facility:[facility] Start: 09-27-2023 End: 09-27-2023 Patient encounter procedure Rishi Augie ROLANDO [facility] Start: 07-07-2023 End: 07-07-2023 Office outpatient visit 25 minutes Tom Lemus DO Work Phone: [facility] Comment on above: Bipolar 1 disorder ( CMS-HCC) (Primary Dx); Oropharyngeal dysphagia; Generalized anxiety disorder with panic attacks Start: 07-04-2023 Preprocedural examination done Ronnilsa Mccordo DO Work Phone: [facility] Start: 05-19-2023 End: 05-19-2023 Admission to same day surgery center DO Tom Lemus Work Phone: [facility] Work Phone: Start: 05-19-2023 End: 05-19-2023 ambulatory DO Tom Lemus Work Phone: [facility] Work Phone: Start: 05-17-2023 End: 05-17-2023 ambulatory Imad Asaad Other [employer] Other Start: 05-17-2023 Telephone encounter Imad Asaad [facility] Start: 05-12-2023 End: 05-12-2023 ambulatory DO Tom Lemus Work Phone: [facility] Work Phone: Start: 05-12-2023 End: 05-12-2023 Patient encounter procedure DO Tom Lemus Work Phone: [facility] [place] Work Phone: Start: 05-10-2023 End: 05-10-2023 ambulatory Rishimaricel YOUNG Facility:[facility] Start: 05-10-2023 End: 05-10-2023 Patient encounter procedure Rishi YOUNG [facility] Start: 04-27-2023 End: 04-27-2023 ambulatory Imad Asaad Other [employer] Other Start: 04-27-2023 Office outpatient ne w 45 minutes Imad Asaad [facility] Start: 04-14-2023 End: 04-14-2023 ambulatory BRIDGETTE SARGENT Facility:CD:[id number] Start: 02-11-2023 End: 02-11-2023 ambulatory Sarah Anderson Other [employer] Other Start: 02-11-2023 Office outpatient vi sit 15 minutes Sarah Anderson [facility] Start: 02-03-2023 Telephone encounter Niles Macias DO Work Phone: Gastroenterology Comment on above: Appointment Start: 02-02-2023 End: 02-06-2023 Evaluation and management of inpatient DO Tom Lemus Work Phone: [facility] Work Phone: Start: 09-23-[address] RON [...] Facility:[facility] Start: 07-06-2022 End: 07-06-[address] TOM LEMUS Facility:[facility] Start: 06-30-2022 End: 07-01-2022 Emergency department patient visit Courtney Hernandez MD Work Phone: [facility] Labor and Delivery Comment on above: Hyperemesis (Primary Dx); Pelvic cramping Start: 06-22-2022 End: 06-22-2022 ambulatory YOVANA SORIANO . Facility:[facility] Start: 06-21-2022 Office Services Bridgette lindsay Other [facility] Start: 06-18-2022 Office Services Bridgette lindsay Other [facility] Start: 06-17-2022 Office outpatient vi sit 15 minutes Bridgette Sargent Other [facility] Start: 06-15-2022 Office outpatient vi sit 15 minutes Maricel Stafford Other [facility] Start: 06-15-2022 Office Services Maricel Stafford Other [facility] Start: 06-09-[address] TOM LEMUS Facility: [facility] Start: 06-05-2022 End: 06-06-[address] TOM LEMUS Facility:[facility] Start: 05-26-2022 End: 05-27-[address] TOM LEMUS Facility:[facility] Start: 05-17-2022 Office consultation new/estab patient 60 min Maricel Stafford Other [facility] Start: 04-30-2022 End: 05-01-[address] TOM LEMUS Facility:[facility] Start: 04-08-2022 End: 04-09-[address] TOM LEMUS Facility:[facility] Start: 03-29-2022 Lab Bridgette lindsay Other [facility] Start: 03-22-2022 End: 03-23-[address] TOM LEMUS Facility:[facility] Start: 03-17-2022 Lab Kaleigh Hernandez ams Other [facility] Start: 03-03-2022 End: 03-04-[address] TOM LEMUS Facility:[facility] Start: 02-10-2022 End: 02-10-2022 Admission to same day surgery center DO Tom Lemus Work Phone: [facility] Start: 02-09-2022 Patient encounter procedure Kaleigh Guevara [employer] Start: 02-09-2022 Periodic preventive med est patient 18-39 yrs Kaleigh Guevara Other [employer] Office Start: 02-04-2022 Encounter for genera l adult medical examination without abnormal findings Bridgette Sargent [employer] Start: 02-04-2022 Lab Bridgette lindsay Other [facility] Office Start: 02-04-2022 Office Services Kaleigh Blue Hernandez ams Other [facility] Office Start: 01-29-2022 Office outpatient vi sit 15 minutes Bridgette Sargent Other [employer] Office Start: 01-25-2022 End: 01-25-2022 ambulatory Tae Natarajan Other [employer] Other Start: 01-25-2022 Office outpatient ne w 45 minutes Tae Natarajan [facility] Vascular Surgery Start: 01-19-2022 Office outpatient ne w 30 minutes Bridgette Sargent Other [employer] Office Start: 12-17-2021 Encounter for genera l adult medical examination without abnormal findings [employer] Start: 12-04-2021 End: 12-05-[address] TOM LEMUS Facility:[facility] Start: 11-14-2021 End: 11-14-[address] TOM LEMUS Facility:[facility] Start: 10-12-2021 End: 10-12-2021 Subsequent hospital visit by physician Tom Lemus Work Phone: [facility] Laboratory Start: 10-11-2021 End: 10-11-2021 Emergency department patient visit Tom Lemus Work Phone: [facility] ED Comment on above: Lower abdominal pain (Primary Dx) Start: 10-09-2021 End: 10-10-[address] TOM LEMUS Facility: Start: 09-29-2021 End: 09-29-2021 Patient encounter procedure Rishi YOUNG [facility] Start: 09-04-2021 End: 09-04-2021 Patient encounter procedure Rishi YUONG [facility] Start: 03-16-2020 End: 03-16-2020 Emergency department patient visit Catracho Parisi Work Phone: [facility] ED Comment on above: Viral URI with cough (Primary Dx) Start: 03-07-2020 End: 03-07-2020 Subsequent hospital visit by physician Areli Covid Screening Schedule [facility] Covid Screening Comment on above: Acute frontal sinusi tis, recurrence not specified Start: 03-03-2020 End: 03-03-2020 Subsequent hospital visit by physician Regina Johnson [facility] Laboratory Comment on above: Gross hematuria Start: 10-12-2019 End: 10-15-2019 Patient encounter procedure [facility] Start: 10-12-2019 End: 10-14-2019 Subsequent hospital visit by physician Juan A Laguerre Room 2 [facility] Nuclear Medicine Comment on above: Intractable nausea a nd vomiting Start: 10-05-2019 End: 10-05-2019 Patient encounter procedure [facility] Start: 10-05-2019 End: 10-05-2019 Subsequent hospital visit by physician Toño Blanc Work Phone: [facility] Start: 10-03-2019 End: 10-04-2019 Patient encounter procedure BIRANA SWENSON [facility] Start: 10-03-2019 End: 10-03-2019 Subsequent hospital visit by physician Regina [facility] Start: 10-02-2019 End: 10-02-2019 Subsequent hospital visit by physician Tonio Swiftid19 Pat Screening Schedule [facility] Pre-Admit Testing Comment on above: No Show Start: 02-08-2019 End: 02-10-2019 Subsequent hospital visit by physician Khalida Grey Dr Room 2 [facility] Radiology Comment on above: Gross hematuria; Urgency of urination Start: 02-06-2019 End: 02-06-2019 Subsequent hospital visit by physician Regina [facility] Laboratory Comment on above: Gross hematuria; Urgency of urination Start: 01-15-2019 End: 01-15-2019 Subsequent hospital visit by physician Regina [facility] Laboratory Comment on above: Dysuria; Gross hematuria Procedures Date Procedure Procedure Detail Performing Clinician Start: 01-13-2025 Drug tst prsmv instrmnt chem analyzers pr date Kd Couch MD Work Phone: Start: 01-13-2025 Urinalysis microscopic only Kd Gamez ra, MD Work Phone: Start: 01-13-2025 Urnls dip stick/tablet rgnt auto w/o microscopy Kd Couch MD Work Phone: Start: 01-13-2025 Ct head/brain w/o contrast material Luiz Couch MD Work Phone: Start: 01-13-2025 Comprehensive metabolic panel Kd moore MD Work Phone: Start: 01-11-2025 Ecg routine ecg w/least 12 lds w/i&r Hiram Murillo MD Work Phone: Start: 01-11-2025 Comprehensive metabolic panel Juan Ramon Mitchell PA-C Work Phone: Start: 01-11-2025 Drug assay valproic dipropylacetic acid total Juan Ramon Rubio PA-C Work Phone: Start: 01-11-2025 Urinalysis microscopic only Juan Ramon de anda PA-C Work Phone: Start: 01-11-2025 Urnls dip stick/tablet rgnt auto w/o microscopy Juan Ramon Rubio PA-C Work Phone: Start: 12-05-2024 Adult depression screening assessment Tom Lemus DO Work Phone: Start: 10-19-2024 Follow-up visit Follow-up JESICA DODSON Start: 10-12-2024 Adult depression screening assessment Leighton Staton MD Work Phone: Start: 09-26-2024 Urnls dip stick/tablet rgnt non-auto w/o micrscp Ron Bianca DO Work Phone: Start: 08-13-2024 Adult depression screening assessment Tom Farmerjulien DO Work Phone: Start: 07-27-2024 Assay of lactate Kd Couch MD Work Phone: Start: 07-26-2024 Urnls dip stick/tablet rgnt auto w/o microscopy Kd Couch MD Work Phone: Start: 07-26-2024 End: 07-26-2024 Iaadiadoo influenza Kd Couch MD Work Phone: Start: 07-26-2024 Ct abdomen & pelvis w/contrast material Kd Couch MD Work Phone: Start: 07-26-2024 Radiologic exam chest single view Kd Couch MD Work Phone: Start: 07-26-2024 Comprehensive metabolic panel Kd moore MD Work Phone: Start: 07-26-2024 Ecg routine ecg w/least 12 lds w/i&r Kd Couch MD Work Phone: Start: 06-22-2024 Adult depression screening assessment Melodie Bailey Start: 06-08-2024 Follow-up visit Follow-up TOM LEMUS Start: 06-08-2024 Adult depression screening assessment Tom Lemus DO Work Phone: Start: 06-05-2024 Drug screen quantitative lithium Ladan Thorne PA-C Work Phone: Start: 06-05-2024 Radiologic exam chest single view Kd Brenda Couch MD Work Phone: Start: 06-05-2024 Comprehensive metabolic panel Kd Gutierrez Mignon moore MD Work Phone: Start: 06-05-2024 Ecg routine ecg w/least 12 lds w/i&r Noemí R Garcia DO Work Phone: Start: 02-16-2024 ALL CBC WITH AUTO DIFF Ron Bianca DO Work Phone: Start: 02-13-2024 Antibody screen Ron Bianca DO Work Phone: Start: 02-13-2024 ALL TYPE AND SCREEN Ron Bianca DO Work Phone: Start: 02-09-2024 Adult depression screening assessment Tom Lemus DO Work Phone: Start: 01-31-2024 ALL CBC WITH AUTO DIFF Ron Bianca DO Work Phone: Start: 01-16-2024 Urine test visual color cmprsn meths Ron Bianca DO Work Phone: Start: 01-10-2024 Urnls dip stick/tablet rgnt non-auto w/o micrscp Shireen Chavez TEACHING ASSOCIATE-[employer] Work Phone: Start: 01-10-2024 Adult depression screening assessment hSireen Chavez TEACHING ASSOCIATE-[employer] Work Phone: Start: 01-07-2024 Drug tst prsmv instrmnt chem analyzers pr date Courtney Hernandez MD Work Phone: Start: 01-07-2024 Urinalysis microscopic only Courtney Hernandez MD Work Phone: Start: 01-07-2024 Urine test visual color cmprsn meths Courtney Hernandez MD Work Phone: Start: 01-07-2024 Radiologic exam chest single view Royal Hernandez MD Work Phone: Start: 01-07-2024 Blood gases any combination ph pco2 po2 co2 hco3 Courtney Hernandez MD Work Phone: Start: 01-07-2024 Assay of ethanol Courtney Hernandez MD Work Phone: Start: 01-07-2024 Comprehensive metabolic panel Courtney Rainey dd, MD Work Phone: Start: 01-07-2024 Ecg routine ecg w/least 12 lds w/i&r Courtney Hernandez MD Work Phone: Start: 12-29-2023 Ultrasound elastography of liver DO Tom Lemus Work Phone: Start: 12-06-2023 Adult depression screening assessment Tom Lemus DO Work Phone: Start: 11-21-2023 Adult depression screening assessment Tom Lemus DO Work Phone: Start: 11-20-2023 Ct thorax w/contrast material Noemí Garcia Work Phone: Start: 11-20-2023 Ecg routine ecg w/least 12 lds w/i&r Noemí Garcia DO Work Phone: Start: 11-20-2023 Basic metabolic panel calcium total Chri joe R Jose DO Work Phone: Start: 07-27-2023 Cytp cerv/vag auto thin layer prep mnl screen Ron Valenzuela DO Work Phone: Start: 07-07-2023 Adult depression screening assessment Tom Lemus DO Work Phone: Start: 05-19-2023 Esophagogastroduodenoscopy DO Tom Lemus Work Phone: Start: 05-12-2023 Computed tomography of abdomen and pelvis with contrast DO Tom Lemus Work Phone: Start: 05-10-2023 Removal of stent Rishi YOUNG Start: 02-02-2023 Urine culture DO Tom Lemus Work Phone: Start: 07-06-2022 Microscopic observation [Identifier] in Cervix by Cyto stain Niles Aragon RN Start: 06-30-2022 Urinalysis microscopic only Courtney Hernandez [...] Bridgette mcarthur Start: 06-17-2022 Blood chemistry Bridgette Sargent Start: 06-17-2022 Basic metabolic panel calcium total Ravinder Sargent Start: 06-17-2022 Docrev cur meds by eli clin Bridgette mcarthur Start: 06-17-2022 Erythrocyte mean corpuscular volume determination Bridgette Sargent Start: 06-17-2022 Urinalysis, automated Bridgette Sargent Start: 06-15-2022 Docrev cur meds by joey morales Stafford Start: 06-15-2022 Spirometry for bronchospasm with prolonged evaluation after bronchodilator Bridgette Sargent Start: 05-17-2022 Docrev cur meds by eli clin Maricel Stafford Start: 05-17-2022 Measurement of nitric oxide Maricel Stafford Start: 03-29-2022 Human chorionic gonadotropin measurement Maricel Stafford Start: 03-17-2022 Human chorionic gonadotropin measurement Bridgette Sargent Start: 02-10-2022 Abdominal aortogram DO Tom Lemus Work Phone: Start: 02-09-2022 Docrev cur [...] Guevara Start: 01-29-2022 Docrev cur meds by [facility] Bridgette mcarthur Start: 01-19-2022 Docrev cur meds by [facility] Bridgette mcarthur Start: 01-19-2022 Ketorolac tromethamine inj Bridgette Corado tts Start: 01-19-2022 Therapeutic prophylactic/dx injection subq/im Bridgette Arie Start: 01-05-2022 Skin test for tuberculosis, Bhumika test Start: 12-23-2021 Skin test for tuberculosis, Bhumika test Start: 10-12-2021 Gonadotropin chorionic quantitative Tom Maury Lemus Work Phone: Start: 10-11-2021 Ct abdomen & pelvis w/contrast material [facility] Work Phone: Start: 10-11-2021 Assay of lipase [facility] Work Phone: Start: 10-11-2021 Urinalysis microscopic only [facility] Work Phone: Start: 10-11-2021 Urine test visual color cmprsn meths [facility] Work Phone: Start: 09-29-2021 Cystoscopy Rishi YOUNG Start: 03-16-2020 Radiologic exam chest single view Neal Parisi Work Phone: Start: 03-03-2020 Urnls dip stick/tablet reagent auto microscopy Venancio Delgado Work Phone: Start: 10-12-2019 Hepatobil syst imag inc gb w/pharma intervenj LUNDBERG JAYASHREE Start: 10-12-2019 Hepatobil syst imag inc gb w/pharma intervenj Lundberg Jayashree Work Phone: Start: 10-05-2019 DISCHARGE PATIENT TOÑO [...] Blanc Work Phone: Start: 10-02-2019 COVID-19 BRIANAVIVIENNE SWENSON Start: 10-02-2019 COVID-19 BrianRojelio Swenson Work Phone: Start: 02-08-2019 Radiologic exam abdomen 1 view Usha Damico Work Phone: Start: 02-06-2019 Urnls dip stick/tablet reagent auto microscopy Usha Damico Work Phone: Start: 02-06-2019 Smr prim src wet mount nfct agt Usha Damico Work Phone: Endometrial ablation Rishi YOUNG Esophagogastroduoden oscopy gastric outlet reduction Rishi YOUNG H/O: hysterectomy S/P hysterectomy Yovana BURK Work Phone: H/O: hysterectomy S/P hysterectomy Yovana BURK Work Phone: Plan of Treatment Date Care Activity Detail Author Start: 09-17-2032 DTaP,Tdap and Td Vaccines (10 - Td or Tdap) DTaP,Tdap and Td Vaccines (10 - Td or Tdap) [facility] Start: 09-17-2032 DTaP/Tdap/Td vaccine (9 - Td or Tdap) DTaP/Tdap/Td vaccine (9 - Td or Tdap) Martha Grace [facility] Start: 09-17-2032 Urine microalbumin profile DTaP,Tdap,Td Vaccine (10 - Td or Tdap) [facility] Start: 04-09-2026 HIV screen HIV screen [place], [place] Comment on above: Postponed from 2012 (Unavailable) Start: 04-09-2026 HIV screening HIV screen [facility] Comment on above: Postponed from 2012 (Unavailable) Start: 12-19-2025 Adult BMI Screening Adult BMI Screening [facility] Start: 12-19-2025 Tobacco Screening Tobacco Screening [facility] Start: 12-05-2025 Adult BMI Screening Adult BMI Screening [facility] Start: 12-05-2025 Depression Screening Depression Screening [facility] Start: 11-10-2025 DTaP/Tdap/Td vaccine (5 - Td or Tdap) DTaP/Tdap/Td vaccine (5 - Td or Tdap) [facility] Start: 11-10-2025 DTaP/Tdap/Td vaccine (6 - Tdap) DTaP/Tdap/Td vaccine (6 - Tdap) [place] Start: 10-19-2025 Tobacco Screening Tobacco Screening [facility] Start: 10-12-2025 Adult BMI Screening Adult BMI Screening [facility] Start: 10-12-2025 Depression Screening Depression Screening [facility] Start: 10-12-2025 Tobacco Screening Tobacco Screening [facility] Start: 08-29-2025 Adult BMI Screening Adult BMI Screening [facility] Start: 08-29-2025 Tobacco Screening Tobacco Screening [facility] Start: 08-13-2025 Adult BMI Screening Adult BMI Screening [facility] Start: 08-13-2025 Depression Screening Depression Screening [facility] Start: 08-13-2025 Tobacco Screening Tobacco Screening [facility] Start: 08-10-2025 Adult BMI Screening Adult BMI Screening [facility] Start: 08-10-2025 Tobacco Screening Tobacco Screening [facility] Start: 08-07-2025 Adult BMI Screening Adult BMI Screening [facility] Start: 08-04-2025 Tobacco Screening Tobacco Screening [facility] Start: 07-16-2025 Adult BMI Screening Adult BMI Screening [facility] Start: 07-13-2025 Tobacco Screening Tobacco Screening [facility] Start: 07-06-2025 Screening for malignant neoplasm of cervix Pap Smear [facility] Start: 07-02-2025 Tobacco Screening Tobacco Screening [facility] Start: 06-26-2025 Adult BMI Screening Adult BMI Screening [facility] Start: 06-22-2025 Adult BMI Screening Adult BMI Screening [facility] Start: 06-22-2025 Depression Screening Depression Screening [facility] Start: 06-22-2025 Tobacco Screening Tobacco Screening [facility] Start: 06-14-2025 Adult BMI Screening Adult BMI Screening [facility] Start: 06-14-2025 Tobacco Screening Tobacco Screening [facility] Start: 06-08-2025 Adult BMI Screening Adult BMI Screening [facility] Start: 06-08-2025 Depression Screening Depression Screening [facility] Start: 06-08-2025 Tobacco Screening Tobacco Screening [facility] Start: 06-06-2025 Adult BMI Screening Adult BMI Screening [facility] Start: 06-06-2025 Tobacco Screening Tobacco Screening [facility] Start: 05-06-2025 End: 05-06-2025 Patient encounter procedure 05/06/2025 1:15 PM EST Office Visit [facility] [address] [place] [phone] Jesica Dodson MD [address] [id number] [facility] Start: 04-09-2025 End: 04-09-2025 ambulatory 04/09/2025 5:00 PM EST [facility] [address] [place] [address] Yevgeniy Wick, PhD [address] [place] [address] [facility] Comment on above: [facility] Start: 04-02-2025 End: 04-02-2025 ambulatory 04/02/2025 5:00 PM EST [facility] [address] [place] [address] Yevgeniy Wick, PhD [address] [place] [address] [facility] Comment on above: [facility] Start: 03-26-2025 End: 03-26-2025 ambulatory 03/26/2025 5:00 PM EDT [facility] [address] [place] [address] Yevgeniy Wick, PhD [address] [place] [address] [facility] Comment on above: [facility]nes Start: 03-19-2025 End: 03-19-2025 ambulatory 03/19/2025 5:00 PM EDT [facility] [address] [place] [address] Yevgeniy Wick, PhD [address] [place] [address] [facility] Comment on above: [facility]nes Start: 03-13-2025 End: 03-13-2025 Patient encounter procedure 03/13/2025 7:30 AM EDT Office Visit Neurology [address] [place] [address] Chadd Fisher, TEACHING ASSOCIATE.[employer]OOK [address] [place] [address] f/u Neurology Comment on above: f/u Start: 03-12-2025 End: 03-12-2025 ambulatory 03/12/2025 5:00 PM EDT [facility] [address] [place] [address] Yevgeniy Wick, PhD [address] [place] [address] [facility] Comment on above: pnes Start: 03-05-2025 End: 03-05-2025 ambulatory 03/05/2025 5:00 PM EDT [facility] [address] [place] [address] Yevgeniy Wick, PhD [address] [place], [place] [id number] [facility] Comment on above: [facility] Start: 02-26-2025 End: 02-26-2025 ambulatory 02/26/2025 5:00 PM EDT [facility] [address] [place] [address] Yevgeniy Wick, PhD [address] [place] [address] [facility] Comment on above: pnes Start: 02-19-2025 End: 02-19-2025 ambulatory 02/19/2025 5:00 PM EDT [facility] [address] [place] [address] Yevgeniy Wick, PhD [address] [place] [address] [facility] Comment on above: pnes Start: 02-12-2025 End: 02-12-2025 ambulatory 02/12/2025 1:00 PM EDT Procedure Neurology [address] [place] [address] Orthostatic lightheadedness [R42] Neurology Comment on above: Orthostatic lightheadedness [R42] Start: 02-11-2025 End: 02-11-2025 ambulatory 02/11/2025 5:00 PM EDT [facility] [address] [place] [address] Yevgeniy Wick, PhD [address] [place] [address] [facility] Comment on above: pnes Start: 02-09-2025 Evaluation and management of inpatient 02/09/2025 Hospital Encounter [facility] [address] [id number] Elijah Bender MD [address] [place] [address] Unspecified convulsions (HCC) [R56.9] [facility] Comment on above: Unspecified convulsions (HCC) [R56.9] Start: 02-09-2025 End: 02-09-2025 Patient encounter procedure 02/09/2025 10:00 AM EDT Office Visit Neurology [address] [place] [address] [facility] Neurology Comment on above: ADMIT Start: 02-08-2025 Adult BMI Screening Adult BMI Screening [facility] Start: 02-08-2025 Depression Screening Depression Screening [facility] Start: 02-08-2025 Tobacco Screening Tobacco Screening [facility] Start: 02-05-2025 End: 02-05-2025 ambulatory 02/05/2025 5:00 PM EDT [facility] [address] [place] [address] Yevgeniy Wick, PhD [address] [place] [address] [facility] Comment on above: pnes Start: 01-29-2025 End: 01-29-2025 ambulatory 01/29/2025 5:00 PM EDT [facility] [address] [place] [address] Yevgeniy Wick, PhD [address] [place] [address] [facility] Comment on above: pnes Start: 01-28-2025 Influenza vaccination [facility] Start: 01-23-2025 End: 01-23-2025 Patient encounter procedure 01/23/2025 1:20 PM EDT Office Visit [facility] [address] [place] [address] Ron Valenzuela DO [address] [facility] [place] [address] [facility] Start: 01-22-2025 End: 01-22-2025 ambulatory 01/22/2025 5:00 PM EDT [facility] [address] [id number] Yevgeniy Wick, PhD [address] [id number] [facility] Neurology Comment on above: pnes Start: 01-22-2025 Adult BMI Screening Adult BMI Screening [facility] Start: 01-22-2025 Tobacco Screening Tobacco Screening [facility] Start: 01-09-2025 Adult BMI Follow Up Plan Adult BMI Follow Up Plan [facility] Start: 01-09-2025 Adult BMI Screening Adult BMI Screening [facility] Start: 01-09-2025 Depression Screening Depression Screening [facility] Start: 01-09-2025 Tobacco Screening Tobacco Screening [facility] Start: 12-28-2024 Influenza vaccination Flu vaccine (#1) [facility] Start: 12-05-2024 Adult BMI Screening Adult BMI Screening [facility] Start: 12-05-2024 Depression Screening Depression Screening [facility] Start: 12-05-2024 End: 12-05-2025 MR Cervical spine WO contrast MR cervical spine without contrast Imaging Routine Cervical radiculopathy Expected: 12/05/2024, Expires: 12/05/2025 [facility] [employer] Work Phone: Comment on above: Expected: 12/05/2024, Expires: Start: 12-05-2024 Tobacco Screening Tobacco Screening [facility] Start: 11-20-2024 Adult BMI Screening Adult BMI Screening [facility] Start: 11-20-2024 Depression Screening Depression Screening [facility] Start: 11-20-2024 Tobacco Screening Tobacco Screening [facility] Start: 11-18-2024 Adult BMI Screening Adult BMI Screening [facility] Start: 10-19-2024 End: 10-19-2024 Patient encounter procedure 10/19/2024 1:15 PM EDT Office Visit [facility] [address] [place] [phone] Jesica Dodson MD [address] [place] [address] [facility] Start: 10-12-2024 End: 10-12-2024 Patient encounter procedure [facility] Start: 09-26-2024 End: 09-26-2025 DHEA DHEA Lab Routine PCOS (polycystic ovarian syndrome) Expected: 09/26/2024 (Approximate), Expires: 09/26/[address] [facility] Comment on above: Expected: 09/26/2024 (Approximate), Expi res: 09/26/2025 Start: 09-10-2024 End: 09-10-2024 Patient encounter procedure 09/10/2024 1:00 PM EDT Appointment [facility] [address] [place] [phone] Tom Lemus, [address] [place] [address] [facility] Start: 08-13-2024 Evaluation and management of inpatient 08/13/2024 12:01 AM EDT Hospital Encounter Esha Shaver MD [address], [address], [address], [address] [place] [phone] [facility] Start: 08-10-2024 End: 08-10-2024 Patient encounter procedure 08/10/2024 3:00 PM EDT Office Visit [facility] [address] [place] [phone] Kendall Cruz, DO [address] [facility], [address] [place] [address] [facility] Start: 08-03-2024 End: 08-03-2024 Patient encounter procedure 08/03/2024 9:15 AM EST Office Visit [facility] [address] [place] [phone] Art Luna MD [address] [place] [address], [address] [place] [address] [facility] Start: 07-30-2024 Evaluation and management of inpatient 07/30/2024 12:01 AM EST Hospital Encounter Esha Shaver MD [address] [place] [address], [address], [address], [address] [place] [phone] [facility] Start: 07-25-2024 End: 07-25-2024 Patient encounter procedure 07/25/2024 2:15 PM EST Office Visit [facility] [address] [place] [phone] Kendall Cruz, DO [address] [facility] [place] [address] [facility] Start: 07-07-2024 Adult BMI Screening Adult BMI Screening [facility] Start: 07-07-2024 Depression Screening Depression Screening [facility] Start: 07-07-2024 Tobacco Screening Tobacco Screening [facility] Start: 06-29-2024 End: 06-29-2024 Patient encounter procedure 06/29/2024 10:45 AM EST Office Visit [facility] [address] [place] [address] Tom Lemus, DO [address] [facility] [place] [address] [facility] Start: 06-14-2024 End: 06-14-2024 Patient encounter procedure 06/14/2024 4:15 PM EST [facility] [address] [place] [phone] Tom Lemus, DO [address] [place] [address] [facility] - [facility] Start: 06-08-2024 End: 06-08-2025 Echo complete W/O contrast Echo complete W/O contrast Echocardiography Routine Orthostatic hypotension Expected: 06/08/2024, Expires: 06/08/2025 [facility] [employer] Work Phone: Comment on above: Expected: 06/08/2024, Expires: Start: 06-08-2024 End: 06-08-2025 Tilt table study Tilt table study Cardiac Services Routine Orthostatic hypotension Expected: 06/08/2024, Expires: 06/08/2025 [facility] Comment on above: Expected: 06/08/2024, Expires: Start: 06-08-2024 End: 06-08-2024 Patient encounter procedure 06/08/2024 10:00 AM EST Office Visit [facility] - Family [facility] [address] [place] [address] Tom Lmeus, DO [address] [place] [address] [facility] - Family Medicine Start: 2024 HPV Vaccine (1 - 3-dose SCDM series) HPV Vaccine (1 - 3-dose SCDM series) [facility] Start: 02-23-2024 End: 02-23-2024 Patient encounter procedure 02/23/2024 2:30 PM EDT Office Visit [facility] [address] [place] [address] [place] [address] Yovana Soriano PA [address] [facility] [place] [address] [facility] Start: 02-15-2024 End: 02-15-2024 Patient encounter procedure 02/15/2024 6:00 AM EDT Procedure Visit [facility] Ron Valenzuela DO [address] [facility] [place] [address] [facility] Start: 02-09-2024 End: 02-09-2024 Patient encounter procedure 02/09/2024 2:00 PM EDT Office Visit [facility] [address] [place] [address] Tom Lemus, [address] [place] [address] [facility] Start: 01-29-2024 COVID-19 Vaccine ( season) COVID-19 Vaccine ( season) [facility] Start: 01-29-2024 COVID-19 Vaccine ( season) COVID-19 Vaccine ( season) [facility] Start: 01-29-2024 COVID-19 Vaccine ( season) COVID-19 Vaccine ( season) [facility] Start: 01-29-2024 COVID-19 Vaccine ( season) COVID-19 Vaccine ( season) [facility] Start: 01-29-[address] [facility] Start: 01-16-2024 [facility] Start: 12-29-2023 Influenza vaccination [facility] Start: 12-29-2023 [facility] Start: 12-06-2023 End: 12-06-2023 Patient encounter procedure 12/06/2023 8:30 AM EDT Office Visit [facility] [address] [place] [address] Tom Lemus DO [address] [facility] [place] [address] [facility] Start: 05-19-2023 [facility] Start: 02-06-2023 [facility] Start: 02-02-2023 Hospital admission [facility] Start: 01-28-2023 COVID-19 Vaccine () COVID-19 Vaccine () [facility] Start: 01-28-2023 COVID-19 Vaccine () COVID-19 Vaccine () [facility] Start: 01-28-2023 Influenza vaccination [facility] Start: 08-09-2022 Lipid panel Lipid panel [employer] Start: 08-09-2022 Transferase alanine amino alt sgpt ALT [employer] Start: 08-09-2022 Transferase aspartate amino ast sgot AST [employer] Start: 06-21-2022 Iv infusion hydration initial 31 min-1 hour IV HYDRATION,INITIAL,31 MINUTES TO 1 HOUR [employer] Start: 06-17-2022 Basic metabolic panel calcium total Chem 8 [employer] Start: 06-15-2022 Brncdilat rspse spmtry pre&post-brncdilat admn Spirometry with bronchodilator [employer] Start: 05-30-2022 DEPRESSION ASSESSMENT DEPRESSION ASSESSMENT [facility] Start: 05-17-2022 Nitric oxide gas determination FENO [employer] Start: 04-03-2022 Depression Monitoring Depression Monitoring [facility] Start: 03-29-2022 Gonadotropin chorionic quantitative Beta HCG Quantitative [employer] Start: 03-17-2022 Gonadotropin chorionic quantitative Beta HCG Quantitative [employer] Start: 02-10-2022 [facility] Work Phone: Start: 02-04-2022 Assay of thyroid stimulating hormone tsh TSH [employer] Start: 02-04-2022 Blood count complete automated CBC PLATELET COUNT; AUTOMATED [employer] Start: 02-04-2022 Comprehensive metabolic panel Comp [employer] Start: 02-04-2022 Lipid panel Lipid panel [employer] Start: 02-04-2022 Urnls dip stick/tablet rgnt auto w/o microscopy UA [employer] Start: 02-04-2022 Chest PA & LAT [employer] Start: 01-19-2022 Therapeutic prophylactic/dx injection subq/im Sub Q/ IM injection [employer] Start: 12-28-2021 Influenza vaccination Flu vaccine (#1) [facility] [employer] Start: 12-23-2021 Skin test tuberculosis intradermal PPD (Skin test; tuberculosis, intradermal) [facility] Start: 07-29-2021 COVID-19 Vaccine (3 - Booster for Pfizer series) COVID-19 Vaccine (3 - Booster for Pfizer series) [facility] Start: 05-12-2021 COVID-19 Vaccine (5 - Booster) COVID-19 Vaccine (5 - Booster) [facility] Start: 03-03-2020 End: 03-03-2020 Office Visit 03/03/2020 Office Visit Urology Jose Lala MD [address] [place] [address], [address] [place], [place] [id number] [phone] [facility] Start: 02-07-2020 Chlamydia screen Chlamydia screen [place], [place] Start: 02-07-2020 Screening for Chlamydia trachomatis Chlamydia screen [facility] Start: 01-29-2020 Influenza vaccination [place] Start: 11-04-2019 Chlamydia screen Chlamydia screen [place] Start: 10-05-2019 End: 10-05-2019 Hospital Encounter [facility] Comment on above: EGD ESOPHAGOGASTRODUODENOSCOPY Start: 02-20-2019 End: 02-20-2019 Office Visit 02/20/2019 Office Visit 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, TEACHING ASSOCIATE - [employer] [address] [facility] [address] [facility] [address] [place] [address] [phone] [facility] Start: 02-08-2019 End: 02-08-2019 Appointment 02/08/2019 Appointment Radiology [facility] Start: 01-28-2019 Influenza vaccination Flu vaccine (#1) [place] Start: 2018 Cervical cancer screen Cervical cancer screen [place], [place] Start: 2018 PAP TESTING PAP TESTING [facility] Start: 2018 Screening for malignant neoplasm of cervix [facility] Start: 2016 Pneumococcal 0-49 years Vaccine (1 of 2 - PCV) Pneumococcal 0-49 years Vaccine (1 of 2 - PCV) [facility] Start: 2016 Urine microalbumin profile DTAP,TDAP,TD (1 - Tdap) [facility] Start: 2015 Adult BMI Follow Up Plan Adult BMI Follow Up Plan [facility] Start: 2015 Anxiety Screening Anxiety Screening [facility] Start: 2015 Depression Screening Depression Screening [facility] Start: 2015 Hepatitis C screening [facility] Start: 2015 HEPATITIS C SCREENING HEPATITIS C SCREENING [facility] Start: 2015 HIV SCREENING HIV SCREENING [facility] Start: 2015 HIV screening HIV Screening [facility] Start: 02-05-2014 Varicella vaccine (2 of 2 - 13+ 2-dose series) Varicella vaccine (2 of 2 - 13+ 2-dose series) [facility] Start: 2012 HPV vaccine (1 - 3-dose series) HPV vaccine (1 - 3-dose series) [facility] Start: 2012 HPV vaccine (1 - Female 3-dose series) HPV vaccine (1 - Female 3-dose series) [place] Start: 2011 PEDS TO ADULT TRANSITION ANNUAL ASSESSMENT PEDS TO ADULT TRANSITION ANNUAL ASSESSMENT [facility] Start: 2010 Varicella Vaccine (1 of 2 - 13+ 2-dose series) Varicella Vaccine (1 of 2 - 13+ 2-dose series) [place] Start: 2009 Depression Monitoring Depression Monitoring [facility] Start: 2009 PEDS TO ADULT TRANSITION INITIAL DISCUSSION PEDS TO ADULT TRANSITION INITIAL DISCUSSION [facility] Start: 2008 HPV vaccine (1 - 2-dose series) HPV vaccine (1 - 2-dose series) [facility] Start: 2006 HPV VACCINE (1 - 2-dose series) HPV VACCINE (1 - 2-dose series) [facility] Start: 2003 Pneumococcal 0-64 years Vaccine (1 - PCV) Pneumococcal 0-64 years Vaccine (1 - PCV) [facility] Start: 2003 Pneumococcal 0-64 years Vaccine (1 of 1 - PPSV23) Pneumococcal 0-64 years Vaccine (1 of 1 - PPSV23) [place] Start: 2003 Pneumococcal 0-64 years Vaccine (1 of 2 - PCV) Pneumococcal 0-64 years Vaccine (1 of 2 - PCV) [facility] Start: 1998 Varicella vaccine (1 of 2 - 2-dose childhood series) Varicella vaccine (1 of 2 - 2-dose childhood series) [place] Start: 1997 COVID-19 VACCINE (#1) COVID-19 VACCINE (#1) [facility] Start: 1997 HEPATITIS B (1 of 3 - 3-dose series) HEPATITIS B (1 of 3 - 3-dose series) [facility] End: 10-12-2025 Ammonia [Mass/volume] in Plasma [facility] Lab Routine On valproic acid therapy 1 Occurrences starting 10/12/2024 until 10/12/2025 [facility] Comment on above: 1 Occurrences starting 10/12/2024 until 10/12/2025 End: 01-15-2019 Bacteria identified Cx Nom (U) Urine Culture Microbiology Routine Dysuria Gross hematuria 1 Occurrences starting 01/15/2019 until 01/15/2019 [facility] Comment on above: 1 Occurrences starting 01/15/2019 until 01/15/2019 End: 01-09-2025 Bacteria identified in Urine by Culture Urine culture (clean catch) Microbiology Routine Acute cystitis with hematuria 1 Occurrences starting 01/10/2024 until 01/09/2025 [employer] Work Phone: Comment on above: 1 Occurrences starting 01/10/2024 until 01/09/2025 Biopsy endometrium Biopsy endome trium Procedures Routine Menorrhagia with regular cycle Ordered: 01/16/[address] [facility] Work Phone: Comment on above: Ordered: 01/16/2024 End: 01-07-2024 Blood Gas, Venous Blood Gas, Venous Lab STAT One Time for 1 Occurrences starting 01/07/2024 until 01/07/2024 [facility] Comment on above: One Time for 1 Occurrences starting 12/28 until 01/07/2024 End: 02-06-2019 C.trachomatis N.gonorrhoeae DNA, Urine C.trachomatis N.gonorrhoeae DNA, Urine Microbiology Routine Gross hematuria Urgency of urination 1 Occurrences starting 02/06/2019 until 02/06/2019 [facility] Comment on above: 1 Occurrences starting 02/06/2019 until 02/06/2019 C.trachomatis N.gono rrhoeae DNA, Urine C.trachomatis N.gonorrhoeae DNA, Urine Microbiology Routine Gross hematuria Urgency of urination 02/06/2019 12:22 PM EDT [facility] CBC W Auto Different ial panel - Blood CBC and differential Lab Routine PCOS (polycystic ovarian syndrome) Ordered: 09/26/[address] [facility] Comment on above: Ordered: 09/26/2024 CHLAMYDIA TRACHOMATI S (GENITO/STI) CHLAMYDIA TRACHOMATIS (GENITO/STI) Lab Routine Hot flashes Pelvic pain in female Ordered: 09/26/[address] [facility] Comment on above: Ordered: 09/26/2024 Continuous pulse oximetry Pulse oximetry, continuous Respiratory Care STAT Every 4hr until discontinued starting 07/27/2024 [facility] [employer] Comment on above: Every 4hr until discontinued starting COVID-19 [facility] [place] End: 10-02-2019 COVID-19 COVID-19 Lab Routine One Time for 1 Occurrences starting 10/02/2019 until 10/02/2019 [place] Comment on above: One Time for 1 Occurrences starting 09/2019 until 10/02/2019 End: 03-07-2020 COVID-19 Ambulatory COVID-19 Ambulatory Lab Routine Acute frontal sinusitis, recurrence not specified 1 Occurrences starting 03/07/2020 until 03/07/2020 [place] Comment on above: 1 Occurrences starting 03/07/2020 until 03/07/2020 COVID-19 Ambulatory COVID-19 Amb ulatory Lab Routine Acute frontal sinusitis, recurrence not specified 03/07/2020 11:12 AM EDT [place] End: 03-16-2020 COVID-19, PCR COVID-19, PCR Lab Routine One Time for 1 Occurrences starting 03/16/2020 until 03/16/2020 [place] Comment on above: One Time for 1 Occurrences starting 02/27 until 03/16/2020 CT Abdomen and Pelvi s W contrast IV CT ABDOMEN PELVIS W IV CONTRAST Additional Contrast? None Imaging STAT 07/26/2024 11:24 PM EST [facility] End: 03-03-2020 Culture, Urine Culture, Urine Microbiology Routine Gross hematuria 1 Occurrences starting 03/03/2020 until 03/03/2020 [place] Comment on above: 1 Occurrences starting 03/03/2020 until 03/03/2020 Culture, Urine [place] End: 06-30-2022 Culture, Urine [facility] Work Phone: Comment on above: One Time for 1 Occurrences starting 05/2022 until 06/30/2022 DHEA-sulfate DHEA-sulfate Lab Routine PCOS (polycystic ovarian syndrome) Ordered: 09/26/[address] [facility] Comment on above: Ordered: 09/26/2024 End: 06-08-2025 EEG EEG Neurology Routine Simple partial seizure (CMS-HCC) 1 Occurrences starting 06/08/2024 until 06/08/2025 [facility] Comment on above: 1 Occurrences starting 06/08/2024 until 06/08/2025 EKG 12 Lead EKG 12 Lead ECG STAT 06/05/2024 5:43 PM EST [facility] Work Phone: EKG 12 Lead EKG 12 Lead ECG Routine 11/20/2023 8:30 PM EDT [facility] EKG 12 Lead EKG 12 Lead ECG STAT 01/07/2024 10:27 PM EDT [facility] EKG 12 Lead EKG 12 Lead ECG STAT 07/26/2024 10:36 PM EST [facility] EKG 12 Lead EKG 12 Lead ECG Routine 01/11/2025 7:39 PM EDT [facility] Work Phone: End: 01-15-2026 EPIL EEG LEAD PLACEMENT EPIL EEG LEAD PLACEMENT NEUROLOGY Routine Convulsions, unspecified convulsion type (HCC) 1 Occurrences starting 01/15/2025 until 01/15/2026 [facility] Work Phone: Comment on above: 1 Occurrences starting 01/15/2025 until 01/15/2026 EPIL VEEG ADMIT TO EMU/PMU EPIL VEEG ADMIT TO EMU/PMU NEUROLOGY Routine Seizure-like activity (HCC) Ordered: 08/20/2024 [facility] Work Phone: Comment on above: Ordered: 08/20/2024 EPIL VEEG ADMIT TO EMU/PMU EPIL VEEG ADMIT TO EMU/PMU NEUROLOGY Routine Convulsions, unspecified convulsion type (HCC) Ordered: 01/15/2025 [facility] Comment on above: Ordered: 01/15/2025 [facility] E[facility] Lab Ro utine Hot flashes Pelvic pain in female PCOS (polycystic ovarian syndrome) Ordered: 09/26/[address] [facility] Comment on above: Ordered: 09/26/2024 Follicle stimulating hormone Fol licle stimulating hormone Lab Routine PCOS (polycystic ovarian syndrome) Ordered: 09/26/[address] [facility] Comment on above: Ordered: 09/26/2024 [facility] Comment on above: Release Upon Ordering for 1 Occurrences starting 10/05/2019 hCG, quantitative, hCG , quantitative, Lab Routine PCOS (polycystic ovarian syndrome) Ordered: 09/26/[address] [facility] Comment on above: Ordered: 09/26/2024 Hemoglobin A1c/Hemog lobin.total in Blood Hemoglobin A1c Lab Routine Hot flashes Pelvic pain in female Ordered: 09/26/[address] [facility] Comment on above: Ordered: 09/26/2024 End: 06-22-2025 Holter monitor study Jail Monitoring for Epilepsy / LTME 5 Day Neurology Routine Syncope, unspecified syncope type 1 Occurrences starting 06/22/2024 until 06/22/2025 [facility] Work Phone: Comment on above: 1 Occurrences starting 06/22/2024 until 06/22/2025 Initiate Oxygen Therapy Protocol Initiate Oxygen Therapy Protocol Respiratory Care Routine Daily until discontinued starting 10/05/2019 [facility] [employer] Comment on above: Daily until discontinued starting 2019 [place] Kn[place] Level La b STAT 06/05/2024 7:38 PM EST [facility] Luteinizing hormone Luteinizing hormone Lab Routine PCOS (polycystic ovarian syndrome) Ordered: 09/26/[address] [facility] Comment on above: Ordered: 09/26/2024 Neisseria gonorrhoea e DNA [Presence] in Unspecified specimen by ALEKSANDER with probe detection Neisseria gonorrhea DNA probe, direct Lab Routine Hot flashes Pelvic pain in female Ordered: 09/26/[address] [facility] Comment on above: Ordered: 09/26/2024 NEURO CARDIO AUTONOM IC REFLEX W/WO TILT NEURO CARDIO AUTONOMIC REFLEX W/WO TILT Procedures Routine Orthostatic lightheadedness Ordered: 07/13/2024 [facility] Comment on above: Ordered: 07/13/2024 OUTSIDE VENDOR CARDI AC OUTPATIENT EXTENDED RHYTHM RECORDING (WITHOUT TELEMETRY) OUTSIDE VENDOR CARDIAC OUTPATIENT EXTENDED RHYTHM RECORDING (WITHOUT TELEMETRY) Holter Routine Racing heart beat Ordered: 07/13/2024 [facility] Work Phone: Comment on above: Ordered: 07/13/2024 OUTSIDE VENDOR CARDI AC OUTPATIENT EXTENDED RHYTHM RECORDING (WITHOUT TELEMETRY) OUTSIDE VENDOR CARDIAC OUTPATIENT EXTENDED RHYTHM RECORDING (WITHOUT TELEMETRY) Holter Routine Heart palpitations Ordered: 08/31/2024 [facility] Work Phone: Comment on above: Ordered: 08/31/2024 Patient Education Depression, Ad ult (DC) [facility] DC Instructions [facility] Work Phone: Patient referral [facility] Work Phone: Phase I & II - metered glucose P hase I & II - metered glucose Point of Care Testing Routine As Needed until discontinued starting 10/05/2019 [employer] [facility] Comment on above: As Needed until discontinued starting End: 10-05-2019 POC Urine Qual POC Urine Qual Point of Care Testing Routine One Time for 1 Occurrences starting 10/05/2019 until 10/05/2019 [employer] [place] [employer] Comment on above: One Time for 1 Occurrences starting 12/2019 until 10/05/2019 Progesterone Progesterone Lab Routine Hot flashes Pelvic pain in female PCOS (polycystic ovarian syndrome) Ordered: 09/26/[address] [facility] Comment on above: Ordered: 09/26/2024 SURESWAB(R) ADVANCED VAGINITIS PLUS, TMA SURESWAB(R) ADVANCED VAGINITIS PLUS, TMA Pathology and Cytology Routine Hot flashes Pelvic pain in female Ordered: 09/26/2024 [facility] Work Phone: Comment on above: Ordered: 09/26/2024 Surgical Pathology Surgical Path ology Lab Routine Release Upon Ordering for 1 Occurrences starting 10/05/2019 [employer] [place] Comment on above: Release Upon Ordering for 1 Occurrences starting 10/05/2019 Thyrotropin [Units/v olume] in Serum or Plasma TSH Lab Routine PCOS (polycystic ovarian syndrome) Ordered: 09/26/2024 [facility] Comment on above: Ordered: 09/26/2024 Thyroxine (T4) free [Mass/volume] in Serum or Plasma T4, free Lab Routine PCOS (polycystic ovarian syndrome) Ordered: 09/26/[address] [facility] Comment on above: Ordered: 09/26/2024 End: 02-06-2019 Urine culture clean catch Urine culture clean catch Microbiology Routine Gross hematuria Urgency of urination 1 Occurrences starting 02/06/2019 until 02/06/2019 [facility] Comment on above: 1 Occurrences starting 02/06/2019 until 02/06/2019 Urine culture clean catch Urine culture clean catch Microbiology Routine Gross hematuria Urgency of urination 02/06/2019 12:22 PM EDT [facility] [place] End: 10-12-2025 Valproic acid, depakane Valproic acid, depakane Lab Routine On valproic acid therapy 1 Occurrences starting 10/12/2024 until 10/12/2025 [employer] Work Phone: Comment on above: 1 Occurrences starting 10/12/2024 until 10/12/2025 End: 10-12-2025 Valproic Acid, Free, S Valproic Acid, Free, S Lab Routine On valproic acid therapy 1 Occurrences starting 10/12/2024 until 10/12/2025 [employer] Comment on above: 1 Occurrences starting 10/12/2024 until 10/12/2025 Immunizations Immunization Date Immunization Notes Care Provider Frank blanco 09-23-2022 RHO(D) immune globulin- IV or IM Tom Yunawafs DO Work Phone: [facility] 09-17-2022 RHO(D) immune globulin- IV or IM Tom Miltons DO Work Phone: [employer] 09-17-2022 tetanus toxoid, reduced diphtheria toxoid, and acellular pertussis vaccine, adsorbed Rishi YOUNG [facility] 01-05-2022 Tubersol Ortega Vall [facility] 12-23-2021 Tubersol Ortega Vall [facility] 04-28-2021 influenza virus vaccine, unspecified formulation Rishi YOUNG [facility] [place] [facility] 04-28-2021 influenza, injectabl e, quadrivalent, preservative free Tom Lemus DO Work Phone: [facility] 03-17-2021 COVID-19, Pfizer, 30mcg/0.3ml Bridgette Sargent [facility] [employer] 02-28-2021 SARS-CoV-2 (COVID-19 ) mRNA BNT-162b2 vax Rishi YOUNG [facility] 02-27-2021 SARS-CoV-2 (COVID-19 ) Ad26 vaccine, recombinant Rishi YOUNG [facility] 02-08-2021 SARS-CoV-2 (COVID-19 ) mRNA BNT-162b2 vax Rishimaricel YOUNG [facility] [place] [facility] 01-28-2021 SARS-CoV-2 (COVID-19 ) Ad26 vaccine, recombinant Rishi YOUNG [facility] 01-20-2021 COVID-19, Pfizer, 30mcg/0.3ml Bridgette Sargent [facility] [employer] 05-02-2018 influenza virus vaccine, unspecified formulation [facility], [place] 01-27-2016 Influenza Vaccine, unspecified formulation [facility] [place] 01-[facility]-2016 influenza virus vaccine, unspecified formulation Rishi YOUNG [facility] [place] [facility] 01-27-2016 influenza, seasonal, injectable, preservative free Tom Marlenynawafs DO Work Phone: [facility] 12-29-2015 hepatitis B vaccine, adult dosage Rishimaricel YOUNG [facility] [place] [facility] 12-17-2015 hepatitis B vaccine, adult dosage Tom Marlenynawafs DO Work Phone: [facility] 12-17-2015 hepatitis B vaccine, unspecified formulation [facility] [place] 11-26-2015 hepatitis B vaccine, adult dosage Rishi YOUNG [facility] [place] [facility] 11-11-2015 diphtheria, tetanus toxoids and acellular pertussis vaccine [facility] 11-11-2015 tetanus toxoid, reduced diphtheria toxoid, and acellular pertussis vaccine, adsorbed Rishi YOUNG [facility] [place] [facility] 01-08-2014 tetanus toxoid, reduced diphtheria toxoid, and acellular pertussis vaccine, adsorbed Rishi YOUNG [facility] [place] [facility] 01-08-2014 varicella virus vaccine Rishi YOUNG [facility] 10-17-2002 diphtheria, tetanus toxoids and acellular pertussis vaccine, unspecified formulation Tom Lemus DO Work Phone: [facility] 10-17-2002 DTaP, unspecified formulation Rishi YOUNG [facility] [place] [facility] 10-17-2002 measles, mumps and rubella virus vaccine [facility], [place] 10-17-2002 poliovirus vaccine, inactivated [facility], [place] 10-17-2002 poliovirus vaccine, unspecified formulation Tom Miltonronald DO Work Phone: [facility] 10-17-2002 tetanus toxoid, reduced diphtheria toxoid, and acellular pertussis vaccine, adsorbed Tom Lemus DO Work Phone: [facility] 05-17-1998 haemophilus influenz ae type b vaccine, conjugate unspecified formulation Tom Miltonronald DO Work Phone: [facility] 05-17-1998 Hib, unspecified [facility], [place] 05-17-1998 poliovirus vaccine, inactivated [facility], [place] 03-27-1998 diphtheria, tetanus toxoids and acellular pertussis vaccine [place], [place] 03-27-1998 diphtheria, tetanus toxoids and acellular pertussis vaccine, unspecified formulation Tom Lemus DO Work Phone: [facility] 03-27-1998 DTaP, unspecified formulation Rishi YOUNG [facility] [place] [facility] 03-27-1998 haemophilus influenz ae type b vaccine, conjugate unspecified formulation Tom Lemus DO Work Phone: [facility] 03-27-1998 haemophilus influenz ae type b vaccine, HbOC conjugate Tom Lemus DO Work Phone: [facility] 03-27-1998 Hib, unspecified [place], [place] 03-27-1998 measles, mumps and rubella virus vaccine [place] 03-27-1998 tetanus toxoid, reduced diphtheria toxoid, and acellular pertussis vaccine, adsorbed Tom Lemus DO Work Phone: [facility] 1997 diphtheria, tetanus toxoids and acellular pertussis vaccine [place], [place] 1997 diphtheria, tetanus toxoids and acellular pertussis vaccine, unspecified formulation Tom Lemus DO Work Phone: [facility] 1997 DTaP, unspecified formulation Rishi YOUNG [facility] 1997 haemophilus influenz ae type b conjugate and Hepatitis B vaccine Tom Lemus DO Work Phone: [facility] 1997 haemophilus influenz ae type b vaccine, conjugate unspecified formulation Tom Lemus DO Work Phone: [facility] 1997 hepatitis B vaccine, adult dosage Tom Lemus Work Phone: [facility] Work Phone: 1997 hepatitis B vaccine, unspecified formulation [facility], [place] 1997 Hib, unspecified [facility], [place] 1997 poliovirus vaccine, inactivated [facility] [place] [facility] tetanus toxoid, reduced diphtheria toxoid, and acellular pertussis vaccine, adsorbed Tom Lemus DO Work Phone: [facility] 1997 trivalent poliovirus vaccine, live, oral Tom Miltons DO Work Phone: [facility] 1997 diphtheria, tetanus toxoids and acellular pertussis vaccine [facility], [place] 1997 diphtheria, tetanus toxoids and acellular pertussis vaccine, unspecified formulation Tom Lemus DO Work Phone: [facility] 1997 DTaP, unspecified formulation [employer] [facility] 1997 haemophilus influenz ae type b vaccine, HbOC conjugate Tom Lemus DO Work Phone: [facility] 1997 tetanus toxoid, reduced diphtheria toxoid, and acellular pertussis vaccine, adsorbed Tom Lemus DO Work Phone: [facility] 1997 trivalent poliovirus vaccine, live, oral Tom Miltons DO Work Phone: [facility] 1997 diphtheria, tetanus toxoids and acellular pertussis vaccine [facility] [place] diphtheria, tetanus toxoids and acellular pertussis vaccine, unspecified formulation Tom Miltons DO Work Phone: [facility] 1997 DTaP, unspecified formulation [employer] [facility] [place] [facility] 1997 haemophilus influenz ae type b vaccine, conjugate unspecified formulation Tom Lemus DO Work Phone: [facility] 1997 Hib, unspecified [facility], [place] 1997 Hib, unspecified formulation Rishi YOUNG [facility] [place] [facility] 1997 poliovirus vaccine, inactivated [facility], [place] 1997 tetanus toxoid, reduced diphtheria toxoid, and acellular pertussis vaccine, adsorbed Tom Lemus DO Work Phone: [facility] 1997 trivalent poliovirus vaccine, live, oral Tom Lemus DO Work Phone: [facility] 1997 hepatitis B vaccine, adult dosage Tom Lemus Work Phone: [facility] Work Phone: 1997 hepatitis B vaccine, pediatric or pediatric/adolescent dosage Rishi YOUNG [facility] [place] [facility] 1997 hepatitis B vaccine, unspecified formulation [facility] [place] [place] 1997 hepatitis B vaccine, adult dosage Tom Lemus Work Phone: [facility] Work Phone: 1997 hepatitis B vaccine, pediatric or pediatric/adolescent dosage Rishi YOUNG [facility] [place] [facility] 1997 hepatitis B vaccine, unspecified formulation [facility] [place] Payers Date Payer Category Payer Unknown [id number] 2024 [facility] Managed Care - Other [id number] 2024 Worker's Comp, Other (unspecified) WORKER'S COMPENSATION [id number]. [id number] 2024 Worker's Compensation [id number] 2023 Blue Cross Blue Shield 1.2.8 [id number]. 2.7.9.917667.292705.315 2023 Unknown 1.2.840.328130. 1.13.693. 2.7.3.559404.315 2023 Unknown [id number] 2023 Medicaid (Managed Care) 1.2. [id number]. [id number] 2023 Medicaid [place] MEDICA[place] [id number]. [id number] 2022 Medicaid 1.2.840.495491. 1.13.159. 2.7.3.981894.315 2015 Unknown BCBS [place] - [place] P PO xxxxxxxxxxxx 2015-Present [address] [place] [address] xxxxxxxxxxxx 1.2.840.272702.1.13.239. 2.7.3.992627.315 1997 Unknown [id number] 2.16.840.1.476517.3.579. 2.177 1997 Unknown [id number] 2.16.840.1.331482.3.579. 2.177 1997 Unknown [id number] 2.16.840.1.877396.3.579. 2.175 1997 Unknown [id number] 2.16.840.1.931255.3.579. 2.593 1997 Unknown [id number] 2.16.840.1.788438.3.579. 2.593 1997 Unknown [id number] 2.16.840.1.497920.3.579. 2.593 1997 Unknown [id number] 2.16.840.1.503543.3.579. 2.593 1997 Unknown [id number] 2.16.840.1.165467.3.579. 2.593 1997 Unknown [id number] 2.16.840.1.016517.3.579. 2.593 1997 Unknown [id number] 2.16.840.1.421853.3.579. 2.593 1997 Unknown [id number] 2.16.840.1.755907.3.579. 2.593 1997 Unknown [id number] 2.16.840.1.667876.3.579. 2.593 1997 Unknown [id number] 2.16.840.1.672197.3.579. 2.593 1997 Unknown [id number] 2.16.840.1.823798.3.579. 2.593 1997 Unknown [id number] 2.16.840.1.767089.3.579. 2.593 1997 Unknown [id number] 2.16.840.1.814274.3.579. 2.593 1997 Unknown [id number] 2.16.840.1.021326.3.579. 2.593 1997 Unknown [id number] 2.16.840.1.130712.3.579. 2.593 1997 Unknown [id number] 2.16.840.1.822934.3.579. 2.593 1997 Unknown [id number] 2.16.840.1.934862.3.579. 2.593 1997 Unknown [id number] 2.16.840.1.695741.3.579. 2.593 1997 Unknown [id number] 2.16.840.1.582909.3.579. 2.593 1997 Unknown [id number] 2.16.840.1.483646.3.579. 2.727 1997 Unknown [id number] 2.16.840.1.207382.3.579. 2.727 1997 Unknown [id number] 2.16.840.1.648813.3.579. 2.727 1997 Unknown [id number] 2.16.840.1.882917.3.579. 2.727 1997 Unknown [id number] 2.16.840.1.976360.3.579. 2.1286 1997 Unknown [id number] 2.16.840.1.124451.3.579. 2.1259 1997 Unknown [id number] 2.16.840.1.605670.3.579. 2.1259 1997 Unknown [id number] 2.16.840.1.004905.3.579. 2.1259 1997 Unknown [id number] 2.16.840.1.987855.3.579. 2.1259 1997 Unknown [id number] 2.16.840.1.196894.3.579. 2.1259 1997 Unknown [id number] 2.16.840.1.381926.3.579. 2.1259 1997 Unknown [id number] 2.16.840.1.595793.3.579. 2.1286 1997 Unknown [id number] 2.16.840.1.790268.3.579. 2.1286 1997 Unknown [id number] 2.16.840.1.014855.3.579. 2.1286 1997 Unknown [id number] 2.840.1.169279.3.579. 2.128 1997 Unknown [id number] 2.840.1.331796.3.579. 2.1286 1997 Unknown [id number] 2.16.840.1.083629.3.579. 2.1286 1997 Unknown [id number] 2.16.840.1.083533.3.579. 2.1286 1997 Unknown [id number] 2.840.1.200111.3.579. 2.128 1997 Unknown [id number] 2.16.840.1.022875.3.579. 2.1286 1997 Unknown [id number] 2.16.840.1.622085.3.579. 2.128 1997 Unknown [id number] 2.16.840.1.484096.3.579. 2.1286 1997 Unknown [id number] 2.16.840.1.438498.3.579. 2.128 1997 Unknown [id number] 2.16.840.1.736803.3.579. 2.1286 1997 Unknown [id number] 2.16.840.1.859891.3.579. 2.128 1997 Unknown [id number] 2.16.840.1.495774.3.579. 2.1286 1997 Unknown [id number] 2.16.840.1.127484.3.579. 2.128 1997 Unknown [id number] 2.16.840.1.787457.3.579. 2.128 1997 Unknown [id number] 2.16.840.1.528028.3.579. 2.1285 1997 Unknown [id number] 2.16.840.1.437122.3.579. 2.1285 1997 Unknown [id number] 2..840.1.647086.3.579. 2.128 1997 Unknown [id number] 2.16.840.1.945893.3.579. 2.1285 1997 Unknown [id number] 2.16.840.1.805433.3.579. 2.1285 1997 Unknown [id number] 2.16.840.1.922563.3.579. 2.128 1997 Unknown [id number] 2.16.840.1.839741.3.579. 2.128 1997 Unknown [id number] 2.16.840.1.659408.3.579. 2.128 1997 Unknown [id number] 2.16.840.1.581402.3.579. 2.1285 1997 Unknown [id number] 2.16.840.1.118176.3.579. 2.128 1997 Unknown [id number] 2.16.840.1.113096.3.579. 2.1286 1997 Unknown [id number] 2.16.840.1.989189.3.579. 2.1286 1997 Unknown [id number] 2.16.840.1.702644.3.579. 2.1286 1997 Unknown [id number] 2.16.840.1.443624.3.579. 2.1286 1997 Unknown [id number] 2.16.840.1.981856.3.579. 2.1286 1997 Unknown [id number] 2.16.840.1.443832.3.579. 2.173 1997 Unknown [id number] 2.16.840.1.249333.3.579. 2.173 1997 Unknown [id number] 2.16840.1.459573.3.579. 2.173 1997 Unknown [id number] 2.16840.1.235116.3.579. 2.173 1997 Unknown [id number] 2.16.840.1.870139.3.579. 2.173 1959 Self-pay [id number] 1959 Unknown [id number] 1959 Unknown [id number] 2..840.1.871344.3.441 1959 Unknown [id number] Unknown [id number] 2.16840.1.447302.3.579. 2.531 Unknown [id number] 2.16.840.1.745204.3.579. 2.531 Unknown [id number] 2.16.840.1.232388.3.579. 2.531 Social History Date Type Detail Facility Start: 02-06-2019 End: 12-05-2022 Tobacco smoking status NHIS Never smoker [place] Start: 02-06-2019 End: 03-27-2024 Alcohol intake No [place] Start: 1995 Sex Assigned At Not on file [place] Start: 07-31-2019 End: 10-05-2019 Alcohol intake Current non-drinker of alcohol (finding) [place] Exposure to SARS-CoV -2 (event) Unable to assess [place] Start: 03-03-2020 End: 12-05-2022 Tobacco use and exposure Never used [employer] [facility] Start: 03-03-2020 End: 03-27-2024 Alcohol intake Current drinker of alcohol (finding) [place] Start: 03-03-2020 Alcohol Comment occasional [facility] [place] Start: 10-01-2021 End: 06-30-2022 Exposure to SARS-CoV-2 (event) Not sure [place] Start: 04-30-2012 Tobacco smoking status Never [facility] Start: 04-03-2021 History SDOH Financial 5 [employer] Work Phone: Start: 04-03-2021 History SDOH Food Worry 1 [employer] Work Phone: Start: 04-03-2021 History 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 2 [employer] Work Phone: Start: *Tobacco [place] [employer] Start: 1995 Sex Assigned At Female [facility] unknown [facility] Start: 02-21-2024 End: 03-27-2024 History of Social function [facility] Start: 12-05-2022 Alcohol Comment occasional alcohol use; caffeine: 1-2 cups/day [facility] How often to you hav e a drink containing alcohol? Monthly or less [facility] How many standard dr inks containing alcohol do you have on a typical day? 1 or 2 [facility] How often do you hav e 6 or more drinks on 1 occasion? Never [employer] (I/We) worried wheth er (my/our) food would run out before (I/we) got money to buy more. Never true [facility] Do you belong to any clubs or organizations such as yazdanism groups, unions, fraternal or athletic groups, or school groups? No [facility] Are you now , , , , never or living with a partner? Living with partner [facility] How hard is it for y ou to pay for the very basics like food, housing, medical care, and heating Not very hard [facility] Do you feel stress - tense, restless, nervous, or anxious, or unable to sleep at night because your mind is troubled all the time - these days [OSQ] Rather much [facility] Start: 04-26-2022 Education 16 [facility] Start: 06-07-2018 Alcohol Comment occasionally [facility] Start: 07-09-2012 End: 05-02-2018 Sex Female (finding) [facility] Start: 04-17-2024 Gender identity Identifies as female gender (finding) [facility] Start: 07-06-2024 Sexual orientation Heterosexual (finding) [facility] Start: 11-10-2021 Tobacco smoking status NHIS Ex-smoker [facility] History of tobacco use Current smoker [facility] History of tobacco use Tobacco U se Types Packs/Day Years Used Date Smoking Tobacco: Former Vaping/E-cigarettes Smokeless Tobacco: Never [facility] Start: 08-29-2024 End: 12-19-2024 Alcoholic beverage intake Ex-drinker (finding) [facility] Start: 10-15-2024 Alcoholic beverage intake Lifetime non-drinker (finding) [facility] Goals Date Patient Goal Desired Activity /State Personal health goal Comment on above: Formatting of this n ote might be different from the original. Evaluation of progress towards goal: Plan to return home. Functional Status Date Assessment Result Facility 05-10-2023 Functional Status N/A [facility] 02-06-2023 Functional status [facility] at [facility] Work Phone: Mental Status Date Assessment Result Facility 09-10-2023 Cognitive function Cognitive Sta tus Patient at [facility] Work Phone: Clinical Notes 09-04-2021 to 01-22-2025 Yevgeniy Wick, PhD - 01/22/2025 5:02 PM EDTTelephone Encounter - Anitra Sims RN - 01/17/2025 8:49 AM EDTTelephone Encounter - Anitra Sims RN - 01/17/2025 8:49 AM EDTAttachments Note Date & Type Note Facility 01-22-2025 Note HNO ID: [id number] Author: YEVGENIY WICK, PhD Service: ? Author Type: Psychologist Type: Progress Notes Filed: 01/22/2025 17:58 Note Text: [facility] 12-WEEK FND/FUNCTIONAL SEIZURES TREATMENT PROGRAM PSYCHOLOGY NOTE Treatment Workbook Session #: 1 Virtual visit This psychotherapy session was conducted virtually using [employer]. Discussed privacy risk in digital visits. Consent related to virtual visit was provided verbally after information was read to patient. ASSESSMENT: This is a 29 year old patient with functional seizures/functional neurological disorder in counseling for management of symptoms. Seizure semiology and frequency: change in seizure types- had 2 'grand mal' types , has them nearly every day- usually starts as absence seizures then progresses to drop attacks Last day of FND/seizure episode: 01/19/2025 MSE: WNL SI: Pt firmly denied any SI/HI this week. Reported mood: more depressed recently Function: got diagnosed with POTS- re-doing tilt table test next month; does not work and does not drive currently d/t FND; takes care of her daughter at home; works second shift; has an ongoing psychotherapist. Questionnaires: Depression: moderate- increase in depression d/t current situation + stress Anxiety: moderate INTERVENTION: CBT Workbook Taking Control of Functional Seizures Chapter 1 - Introduction for the Patient: Understanding Seizures Reviewed the first chapter and discussed the types of seizures; helped pt identify seizure episodes and distinguish different sxs the past week. Discussed assignment on thoughts, mood, and situations. Helped pt differentiate thoughts and feelings. Chapter 2 - Making the Decision to Begin the Process of Taking Control Reviewed the second chapter and discussed the course of the treatment program, including what each session is going to entail. Discussed the GOAT structure of sessions and helped pt identify motivating factors vs. obstacles. Engaged pt in signature ceremony. Discussed how to keep a seizure log and journal. PATIENT RESPONSE: Pt's understanding of the material appeared good; pt asked appropriate questions. Pt completed the chapters and assignments, and was able to verbalize her internal experiences and any questions about the material. Pt plans on completing her journal and seizure log. Pt identified motivating factors, which include being healthy for her daughter, gaining more independence, and being able to drive. DIAGNOSIS (PROVISIONAL): F44.5 Functional Neurological Symptom Disorder (with seizure attacks) TREATMENT GOALS: Decrease seizure frequency Decrease symptoms of anxiety/depression and other stress reactions Increase identification of emotions and emotional regulation Learn healthy tools for emotional release Set healthy boundaries with others Set healthy boundaries with self Increase tools related to communication Increase interest in activities/interest in life Increase healthy lifestyle routines (sleep, exercise, schedule) Develop mindfulness/meditation practice(s) Increase healthy choices with food Increase physical activity Explore and engage in activities that align with interests PROGRESS: Pt has the workbook and is motivated for the treatment program. PLAN: -Ongoing sessions for treatment of Functional Neurological Disorder with Functional Seizures. -Assignment for next session to include reading the next chapter, as well as keeping a seizure log and a daily journal. Time spent with patient: 45 minutes Yevgeniy Wick, PhD Clinical Psychologist [facility] 01-22-2025 History of Present illness Narrative Images from the original note were not included. [facility] 12-WEEK FND/FUNCTIONAL SEIZURES TREATMENT PROGRAM PSYCHOLOGY NOTE Treatment Workbook Session #: 1 Virtual visit This psychotherapy session was conducted virtually using [employer]. Discussed privacy risk in digital visits. Consent related to virtual visit was provided verbally after information was read to patient. ASSESSMENT: This is a 29 year old patient with functional seizures/functional neurological disorder in counseling for management of symptoms. Seizure semiology and frequency: change in seizure types- had 2 'grand mal' types , has them nearly every day- usually starts as absence seizures then progresses to drop attacks Last day of FND/seizure episode: 01/19/2025 MSE: WNL SI: Pt firmly denied any SI/HI this week. Reported mood: more depressed recently Function: got diagnosed with POTS- re-doing tilt table test next month; does not work and does not drive currently d/t FND; takes care of her daughter at home; works second shift; has an ongoing psychotherapist. Questionnaires: Depression: moderate- increase in depression d/t current situation + stress Anxiety: moderate INTERVENTION: CBT Workbook Taking Control of Functional Seizures Chapter 1 - Introduction for the Patient: Understanding Seizures Reviewed the first chapter and discussed the types of seizures; helped pt identify seizure episodes and distinguish different sxs the past week. Discussed assignment on thoughts, mood, and situations. Helped pt differentiate thoughts and feelings. Chapter 2 - Making the Decision to Begin the Process of Taking Control Reviewed the second chapter and discussed the course of the treatment program, including what each session is going to entail. Discussed the GOAT structure of sessions and helped pt identify motivating factors vs. obstacles. Engaged pt in signature ceremony. Discussed how to keep a seizure log and journal. PATIENT RESPONSE: Pt's understanding of the material appeared good; pt asked appropriate questions. Pt completed the chapters and assignments, and was able to verbalize her internal experiences and any questions about the material. Pt plans on completing her journal and seizure log. Pt identified motivating factors, which include being healthy for her daughter, gaining more independence, and being able to drive. DIAGNOSIS (PROVISIONAL): F44.5 Functional Neurological Symptom Disorder (with seizure attacks) TREATMENT GOALS: Decrease seizure frequency Decrease symptoms of anxiety/depression and other stress reactions Increase identification of emotions and emotional regulation Learn healthy tools for emotional release Set healthy boundaries with others Set healthy boundaries with self Increase tools related to communication Increase interest in activities/interest in life Increase healthy lifestyle routines (sleep, exercise, schedule) Develop mindfulness/meditation practice(s) Increase healthy choices with food Increase physical activity Explore and engage in activities that align with interests PROGRESS: Pt has the workbook and is motivated for the treatment program. PLAN: -Ongoing sessions for treatment of Functional Neurological Disorder with Functional Seizures. -Assignment for next session to include reading the next chapter, as well as keeping a seizure log and a daily journal. Time spent with patient: 45 minutes Yevgeniy Wick, PhD Clinical Psychologist [facility] documented in this encounter [facility] 01-17-2025 Telephone encounter Note Sent patient OVGuidehart message requesting fmla forms for spouse. Anitra Sims RN [facility] 01-17-2025 Miscellaneous Notes Sent patient AppHarbort message requesting fmla forms for spouse. Anitra Sims RN Letter Request: Reason letter is requested. Letter of diagnosis - stating that patient: Cari Quijano has a serious health condition to cover days off from work that will be needed for spouse: Wai Quijano. Person calling: Cari Quijano To be addressed to: To Whom It May Concern Address/Email: please sent to patient via Sofea Phone/Fax: n/a Patient of Dr. Gonzales documented in this encounter [facility] 01-16-2025 Telephone encounter Note Letter Request: Reason letter is requested. Letter of diagnosis - stating that patient: Cari Quijano has a serious health condition to cover days off from work that will be needed for spouse: Wai Quijano. Person calling: Cari Leonanagan To be addressed to: To Whom It May Concern Address/Email: please sent to patient via Sofea Phone/Fax: n/a Patient of Dr. Gonzales [facility] 01-15-2025 Note HNO ID: [id number] Author: LADAN AYALA APRN.SPECIAL DIET COOK Service: ? Author Type: Nurse Practitioner Type: Progress Notes Filed: 01/15/2025 16:02 Note Text: Please route this encounter to the EMU Scheduling Pool ( P EMU ) or PMU Scheduling Pool ( P PMU ) through LOS AND Follow up PHASE 1.0 AND 1.5 ORDER SYNOPSIS Patient: Cari Quijano ([id number]) Best contact number: [phone] Insurance: Payor: HOLLI / Plan: BLUE CARD PPO OOS / Product Type: PPO / Scheduling Team: Please call for adult patients: EMU coordinator ([phone]) [place] Coordinator ([phone]) PMU coordinator([phone]) Last Code Striper ([phone]) Please call for pediatric patients: PMU coordinator ([phone]) [place] Coordinator ([phone]) EMU coordinator ([phone]) Last Code Striper ([phone]) 01/15/2025 -- Admission Type EMU Adult Number of Days requested 5 Location Chip (Adults only) Admit Priority Routine 01/15/2025 PURPOSE Patient Being Considered for Epilepsy Surgery? No VEEG recommended to assess seizure burden, address new AND concerning syymptom-sign complex, and/or clarify syndromic epilepsy diagnosis? Yes 01/15/2025 -- Sphenoidal monitoring No Electrode placement Standard Appointments and Tests EPIL EEG LEAD PLACEMENT EPIL VEEG ADMIT TO EMU/PMU Consultations None Please route this encounter to the EMU Scheduling pool ( P EMU ) or PMU Scheduling pool ( P PMU ) through LOS AND Follow up Scheduling coordinators: For all VNS patients being scheduled for DANIEL, please schedule VNS off/on office visits. [facility] 01-15-2025 History of Present illness Narrative Please route this encounter to the EMU Scheduling Pool ( P EMU ) or PMU Scheduling Pool ( P PMU ) through LOS & Follow up PHASE 1.0 AND 1.5 ORDER SYNOPSIS Patient: Cari Quijano ([id number]) Best contact number: [phone] Insurance: Payor: HOLLI / Plan: LUIS CARD PPO OOS / Product Type: PPO / Scheduling Team: Please call for adult patients: EMU coordinator ([phone]) [place] Coordinator ([phone]) PMU coordinator([phone]) Last Code Striper ([phone]) Please call for pediatric patients: PMU coordinator ([phone]) [place] Coordinator ([phone]) EMU coordinator ([phone]) Last Code Striper ([phone]) 01/15/2025 -- Admission Type EMU Adult Number of Days requested 5 Location Chip (Adults only) Admit Priority Routine 01/15/2025 PURPOSE Patient Being Considered for Epilepsy Surgery? No VEEG recommended to assess seizure burden, address new & concerning syymptom-sign complex, and/or clarify syndromic epilepsy diagnosis? Yes 01/15/2025 -- Sphenoidal monitoring No Electrode placement Standard Appointments and Tests EPIL EEG LEAD PLACEMENT EPIL VEEG ADMIT TO EMU/PMU Consultations None Please route this encounter to the EMU Scheduling pool ( P EMU ) or PMU Scheduling pool ( P PMU ) through LOS & Follow up Scheduling coordinators: For all VNS patients being scheduled for DANIEL, please schedule VNS off/on office visits. documented in this encounter [facility] 01-15-2025 Telephone encounter Note Abstract placed Ladan Ayala APRN.CNP [facility] Work Phone: 01-15-2025 Miscellaneous Notes Abstract placed Ladan Ayala APRN.CNP Patient returned call. Spoke with her about recommendations for EMU admission. She is in agreement. Please place abstract. Thank you Anitra Sims RN Call to patient, no answer. Left VM requesting that patient call the office for a message from Ladan Ayala CNP. CB number given. Please provide recommendations below. The EMU is Epilepsy Monitoring Unit Admission most often 2-[address] Gonzales is at [facility]. Or its available at [facility]. If she is interested we will let schedulers know and contact her. Thank you Anitra Sims RN If she feels current seizures are different than prior episodes captured as PNES Would recommend repeat EMU study as reccommended in VALERIE note Ladan Ayala APRN.CNP Called patient, confirmed identity. Gave patient message below Expressed understanding, no questions at this time Contact Information for Cari [phone] (Home Phone) Seizure Call Last Visit: 10/15/24 Priscilla Price Next Visit: 01/22/25 Date and Time of seizure: 01/13/25 and 01/11/25 Seizure description: 01/13/25 evening , blank staring off into space not responding 2 episodes lasting 5 minutes apiece , Then 2 episodes of full body shakes and shivers lasting about 5 minutes , Awake and fuzzy between episodes then slipped into next episode Duration: 90 minutes ,over all Witnessed: Aura: felt really hot , sweaty , nauseous, Last Seizure: 01/11/25 , evening Aura - not feeling right , hot , head felt heavy, extremely tired - she texted mom ,description of seizure as witnessed by mother after arriving to Cari 's house, mother found patient lying on floor in full body shakes lasting 5 minutes, was incontinent of urine , no tongue bite, . No rescue .medication used, back to base line took 24 hours - felt disoriented and confused, slowly returned baseline TB: no UI: yes Rescue Medication used: Tried Ativan - no response ASM: VPA depakote 500 mg 3 times a day = total of 1500 mg /day Dose Increased by psychiatrist end of September 2024 from 250 mg 3 times day= total 750 mg Triggers: none Back to Base Line: non verbal for approx 1/2 hours felt weak and wobbly jaw clenched for 30 minutes before relaxing Other: Do I need to have a repeat EMU visit? Please call patient with recommendations at [phone] (home). PNES patient, Had initial consult with Dr. Castro in September Cancelled all others. Now rescheduled with first appt 01/22. See 01/11 encounter. Anitra Sims RN Seizure activity: Name of Caller : Cari Quijano Relationship to patient: Self Contact phone number: [phone] (home) Date of seizure: 01/13/25 Duration: multiples Back to Baseline (Yes/No): yes Emergency treatment needed (Yes/No): yes Patient of Dr. Gonzales documented in this encounter [facility] 01-15-2025 Telephone encounter Note Patient returned call. Spoke with her about recommendations for EMU admission. She is in agreement. Please place abstract. Thank you Anitra Sims RN [facility] 01-15-2025 Telephone encounter Note Call to patient, no answer. Left VM requesting that patient call the office for a message from Ladan Ayala CNP. CB number given. [facility] 01-15-2025 Telephone encounter Note Please provide recommendations below. The EMU is Epilepsy Monitoring Unit Admission most often 2-[address] Gonzales is at [facility]. Or its available at [facility]. If she is interested we will let schedulers know and contact her. Thank you Anitra Sims RN [facility] 01-15-2025 Telephone encounter Note If she feels current seizures are different than prior episodes captured as PNES Would recommend repeat EMU study as reccommended in VALERIE note Ladan Ayala APRN.LILIYA [facility] 01-14-2025 Telephone encounter Note Called patient, confirmed identity. Gave patient message below Expressed understanding, no questions at this time Contact Information for Cari [phone] (Home Phone) Seizure Call Last Visit: 10/15/24 Priscilla Price Next Visit: 01/22/25 Date and Time of seizure: 01/13/25 and 01/11/25 Seizure description: 01/13/25 evening , blank staring off into space not responding 2 episodes lasting 5 minutes apiece , Then 2 episodes of full body shakes and shivers lasting about 5 minutes , Awake and fuzzy between episodes then slipped into next episode Duration: 90 minutes ,over all Witnessed: Aura: felt really hot , sweaty , nauseous, Last Seizure: 01/11/25 , evening Aura - not feeling right , hot , head felt heavy, extremely tired - she texted mom ,description of seizure as witnessed by mother after arriving to Cari 's house, mother found patient lying on floor in full body shakes lasting 5 minutes, was incontinent of urine , no tongue bite, . No rescue .medication used, back to base line took 24 hours - felt disoriented and confused, slowly returned baseline TB: no UI: yes Rescue Medication used: Tried Ativan - no response ASM: VPA depakote 500 mg 3 times a day = total of 1500 mg /day Dose Increased by psychiatrist end of September 2024 from 250 mg 3 times day= total 750 mg Triggers: none Back to Base Line: non verbal for approx 1/2 hours felt weak and wobbly jaw clenched for 30 minutes before relaxing Other: Do I need to have a repeat EMU visit? T [facility] 01-14-2025 Telephone encounter Note Please call patient with recommendations at [phone] (home). T [facility] 01-14-2025 Telephone encounter Note PNES patient, Had initial consult with Dr. Castro in September Cancelled all others. Now rescheduled with first appt 01/22. See 01/11 encounter. Anitra Sims RN [facility] 01-14-2025 Telephone encounter Note Seizure activity: Name of Caller : Cari Quijano Relationship to patient: Self Contact phone number: [phone] (home) Date of seizure: 01/13/25 Duration: multiples Back to Baseline (Yes/No): yes Emergency treatment needed (Yes/No): yes Patient of Dr. Gonzales [facility] 01-13-2025 Hospital Discharge instructions Kd Couch MD - 01/13/2025 7:19 PM EDT Please continue taking your Depakote and other medications daily as prescribed follow-up with Dr. Gonzales on Tuesday or Tuesday for EEG Return to the ER for any worsening symptoms or concerns The following attachments cannot be sent through Care Everywhere.Seizure (Tajik)documented in this encounter [facility] 01-11-2025 Hospital Discharge instructions Juan Ramon Rubio II, PA-C - 01/11/2025 8:25 PM EDT No driving, operating heavy machinery, climbing ladders, swimming alone or other dangerous activities until okayed by your neurologist. You will receive a survey in the next couple days regarding your experience in the ED. We are constantly striving to improve our care and welcome your feedback. Thank you very much for your time. The emergency department evaluation is not a complete evaluation, you're always required to followup with another doctor within the next few days to assess how your symptoms are progressing and to ensure that there is no indication for further testing or returning to the hospital. Even with treatment sometimes your condition worsens and you will need to return to the hospital. If you are having pain and it is getting worse you should return to the hospital. If you have any new symptoms that were not addressed at your original visit you should return to the hospital. If you're having difficulty breathing but it is getting worse you should return to the hospital. If you're vomiting and cannot take the medicines that were prescribed you should return to the hospital. If you're having persistent fevers you should return to the hospital. If you have any question of whether or not your symptoms are serious enough or for any other urgent concerns- always return to the hospital for repeat evaluation. The following attachments cannot be sent through Care Everywhere.Epilepsy: General Info (Tajik)documented in this encounter [facility] 01-11-2025 Telephone encounter Note Returned call to patient. She endorses history of PNES, from EEG report episodes described as pain in the left side of head, strange smell, unable to open eyes or speak. She also had episodes where she felt nauseated, spinning, and shaky. She is due to follow up with CBT provider next week. She states her symptoms have changed. She is feeling shaky, off, drooling, staring off, and blurred vision. She endorses having multiple per day. Recommended to be evaluated at local ER if she continues to feel this way. Recommended to follow up with office on Tuesday, if still having symptoms may need urgent EMU (EMU currently full). Brenda Quintero NP [facility] Work Phone: 01-11-2025 Miscellaneous Notes Returned call to patient. She endorses history of PNES, from EEG report episodes described as pain in the left side of head, strange smell, unable to open eyes or speak. She also had episodes where she felt nauseated, spinning, and shaky. She is due to follow up with CBT provider next week. She states her symptoms have changed. She is feeling shaky, off, drooling, staring off, and blurred vision. She endorses having multiple per day. Recommended to be evaluated at local ER if she continues to feel this way. Recommended to follow up with office on Tuesday, if still having symptoms may need urgent EMU (EMU currently full). Brenda Quintero NP Ajith Gutierrez, Just saw this encounter, came across late. If you have time could you call patient? Thank you Anitra Sims RN Seizure activity: Name of Caller : Cari Quijano Relationship to patient: Self Contact phone number: [phone] (home) Date of seizure: 01/11/25 Duration: unsure Back to Baseline (Yes/No): yes Emergency treatment needed (Yes/No): no Patient of Dr. gonzales documented in this encounter [facility] 01-11-2025 Telephone encounter Note Ajith Gutierrez, Just saw this encounter, came across late. If you have time could you call patient? Thank you Anitra Sims RN [facility] 01-11-2025 Telephone encounter Note Seizure activity: Name of Caller : Cari Quijano Relationship to patient: Self Contact phone number: [phone] (home) Date of seizure: 01/11/25 Duration: unsure Back to Baseline (Yes/No): yes Emergency treatment needed (Yes/No): no Patient of Dr. gonzales [facility] 01-11-2025 Miscellaneous Notes Received call today 01/11/25 4:03 from patient who's requesting a call back. She stated that she's having pain and numbness down her arm and shoulder to where she is dropping things. She said that she completed MRI Cervical Spine without contrast on 12/28/24 which was ordered by her PCP, Dr. Lemus, who stated that he'd like her neurologist to order an EMG to determine whether patient has Thoracic Outlet or Scalene Syndrome. She said that she had messaged her symptoms which have increasingly gotten worse since the MRI and had messaged her PCP about it stating it's all in her MyChart. Please see 12/31/24 Results Follow-Up encounter for Dr. Lemus for more details from patient and PCP. She also noted that she's tried to take Tizanidine to help her sleep at night and it's not enough to give her pain relief. She is aware that Dr. Staton has graduated and that she'll have a new resident take over her care. I informed her I will route message to Dr. Walters who's taking over care of Dr. Staton's patients - she voiced understanding. Patient's last office visit from 10/12/24 instructs for her to follow up in 8 months. Please call back and advise, callback#: [phone]. Noted. documented in this encounter [facility] 01-11-2025 Telephone encounter Note Received call today 01/11/25 4:03 from patient who's requesting a call back. She stated that she's having pain and numbness down her arm and shoulder to where she is dropping things. She said that she completed MRI Cervical Spine without contrast on 12/28/24 which was ordered by her PCP, Dr. Lemus, who stated that he'd like her neurologist to order an EMG to determine whether patient has Thoracic Outlet or Scalene Syndrome. She said that she had messaged her symptoms which have increasingly gotten worse since the MRI and had messaged her PCP about it stating it's all in her MyChart. Please see 12/31/24 Results Follow-Up encounter for Dr. Lemus for more details from patient and PCP. She also noted that she's tried to take Tizanidine to help her sleep at night and it's not enough to give her pain relief. She is aware that Dr. Staton has graduated and that she'll have a new resident take over her care. I informed her I will route message to Dr. Walters who's taking over care of Dr. Staton's patients - she voiced understanding. Patient's last office visit from 10/12/24 instructs for her to follow up in 8 months. Please call back and advise, callback#: [phone]. [facility] 01-11-2025 Telephone encounter Note Noted. [facility] 01-03-2025 Telephone encounter Note Patient giving update on her symptoms. PCP thinks she has TOS and is inquiring about getting tested for it. MRI was completed that PCP ordered. Impression: 1. No significant thecal sac or neural foraminal stenosis. Specifically no substantial neural foraminal stenosis at C3-C4 or C4-5. Question subtle asymmetric signal change within left C5 nerve as it extends through interscalene triangle. Additional questionable asymmetrically reduced cross-sectional area left anterior scalene when compared to the right. If there is ongoing clinical suspicion and/or compelling clinical features, brachial plexus MRI may further assess. Nabila Lugo RN, BSN [facility] Work Phone: 01-03-2025 Miscellaneous Notes Patient giving update on her symptoms. PCP thinks she has TOS and is inquiring about getting tested for it. MRI was completed that PCP ordered. Impression: 1. No significant thecal sac or neural foraminal stenosis. Specifically no substantial neural foraminal stenosis at C3-C4 or C4-5. Question subtle asymmetric signal change within left C5 nerve as it extends through interscalene triangle. Additional questionable asymmetrically reduced cross-sectional area left anterior scalene when compared to the right. If there is ongoing clinical suspicion and/or compelling clinical features, brachial plexus MRI may further assess. Nabila Lugo RN, BSN documented in this encounter [facility] 12-19-2024 Miscellaneous Notes Contract: 198 Migraine. Headache and neck pain. Took her Migraine medication and it has not helped. Is vomiting and had blurry vision. Pain is 8 or 9/10. Taking the Ubrelvy. Has not taken tie Zanaflex yet tonight. Reason for Disposition [1] SEVERE headache (e.g., excruciating) AND [2] not improved after 2 hours of pain medicine Protocols used: [id number] Per protocol patient referred to the ED for assessment. States she will go. documented in this encounter [facility] 12-19-2024 Telephone encounter Note Contract: 198 Migraine. Headache and neck pain. Took her Migraine medication and it has not helped. Is vomiting and had blurry vision. Pain is 8 or 9/10. Taking the Ubrelvy. Has not taken tie Zanaflex yet tonight. Reason for Disposition [1] SEVERE headache (e.g., excruciating) AND [2] not improved after 2 hours of pain medicine Protocols used: [id number] Per protocol patient referred to the ED for assessment. States she will go. [facility] 12-05-2024 History of Present illness Narrative IM PROGRESS NOTE Patient - Cari Quijano Age - 29 y.o. - 1995 [...] thoracic region, and concomitant numbness and tingling down her left arm to her fingers. - the [...] and this allowed her to sleep, but did not actually resolve the discomfort. - does feel discomfort into the left scapular area as well A review of systems was negative except for the following: Psychiatric: anxiety, concentration difficulties, and Having more brain fog with the above symptoms. Has had some changes to her antipsychotic regimen. Neurological: Her POTS symptoms have been stable and less severe, and will be seeing a psychologist at [facility] for long-term coping skills. Exam BP 108/62 (BP Site: Left Arm, BP Postition: Sitting, BP CUFF SIZE: M (9-13 inches)) Pulse 100 Temp 36.8 C (98.3 F) (Oral) Resp 20 Ht 165.1 cm (5' 5 ) Wt 76.8 kg (169 lb 6.4 oz) LMP 01/09/2024 SpO2 98% BMI 28.19 kg/m Physical Exam Vitals reviewed. Constitutional: General: She is not in acute distress. Appearance: She is not toxic-appearing. HENT: Head: Normocephalic. Right Ear: External ear normal. Left Ear: External ear normal. Mouth/Throat: Mouth: Mucous membranes are moist. Eyes: General: No scleral icterus. Neck: Comments: ROM: Right rotation 75 with discomfort in the left neck and shoulder Left rotation 90 without discomfort Cardiovascular: Rate and Rhythm: Normal [...] total) by mouth in the morning., Disp: 9 tablet, Rfl: 4 methylphenidate HCl (CONCERTA) 36 mg CR tablet, 1 tablet (36 mg total) every morning., Disp: , Rfl: riboflavin, vitamin B2, 400 mg tablet, Take 400 mg by mouth in the morning., Disp: 30 tablet, Rfl: 4 ubrogepant (UBRELVY) 50 mg tablet, Take 50 mg by mouth as needed (Headache)., Disp: 10 tablet, Rfl: 0 ziprasidone (GEODON) 20 mg capsule, Take 1 [...] 10/04/2024 Auto Resulted Final POC Urine Specific [place] 10/04/2024 1.015 1.010, 1.015, 1.020, 1.025 Final [...] Trinidad MD on 10/05/2024 1:03 AM Tom Lemus DO., [facility] Office: [phone] documented in this encounter [facility] 10-15-2024 Note HNO ID: [id number] Author: YEVGENIY WICK, PhD Service: ? Author Type: Psychologist Type: Progress Notes Filed: 10/15/2024 17:59 Note Text: [facility] INITIAL PSYCHOLOGY EVALUATION The patient was informed that this interview was only for the purpose of assessing the presenting problem, for diagnosis and treatment planning and/or to make treatment recommendations. The patient agreed that the evaluation would not be used for forensic, disability, or child custody purposes. The following history is obtained from the patient except when noted. The content acquired from chart review has been confirmed with the patient and discrepancies were noted if any. Limits of confidentiality were discussed. Date: 10/15/24 Virtual visit Consent related to virtual visits was provided verbally after information was read to the patient. 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 REFERRAL: [facility] - Dr. Gonzales PRESENTING PROBLEM: Functional Neurological Disorder (FND) with seizures History of FND/Functional seizures: Date diagnosis received: July 2024 FND Semiology: -Episodes first started on January 06, 2025 -Started Depakote ~September 06-2024 and has seen a decrease in episodes (previously, multiple per day; currently, 1-2x every 2 weeks) -Now she describes episodes as: brain fog, she cannot think, feels like she is about to pass out, has to lie down and close her eyes, sometimes remembers the episodes and sometimes not. Seizure History and Evolution Cari is a 29-year-old female with a history of PTSD, bipolar disorder, and POTS, presenting for evaluation of unresponsive episodes. Cari reports that her episodes began on January 06 of last year. She describes them as unresponsive episodes where she stares off and feels like she is going to pass out, but does not fully lose consciousness. During these episodes, she goes limp, appears to be sleeping, and is unable to respond by moving or talking. She can hear everything going on around her but cannot respond. By the end of March to the beginning of April, she was experiencing these episodes daily, sometimes up to five times a day. She sought medical attention and was diagnosed with POTS after a tilt table test. Despite this diagnosis, the episodes continued. A 12-hour EEG and an overnight stay at [facility] were normal. She then underwent a five-day inpatient EEG from August 13 to August 16, during which she had a few episodes. 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 After the inpatient stay, she began experiencing amnesia, disorientation, and confusion following the episodes. She reports losing memory of what happened before the episodes and not feeling like herself. Her psychiatrist started her on Depakote 250 mg three times a day, which she feels has made a significant difference. Since starting Depakote, the frequency of episodes has decreased to about one every two weeks, and the duration has reduced from 30-90 minutes to about 10 minutes. She describes the current episodes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 palpitations (R42) Orthostatic lightheadedness (F44.5) Psychogenic nonepileptic seizure Cari Quijnao is a 29 year old female here today for follow up. Since last visit patient was admitted to EMU, diagnosed with psychogenic non epileptic seizures. Patient wishes to start treatment for PNES at [facility], consult placed to epilepsy to assist with referrals. There is overlap with positional symptoms (lightheadedness, dizziness, heart racing), will be completing 20 minute tilt table test to evaluate for POTS vs OH vs VVS. Repeat echo scheduled this month following concern of abnormal EKG at prior ER visit. Zio monitor was unable to be completed due to allergy to adhesives, plan for repeat with allergy sensitive adhesive. Explained redness and minor irritation from adhesive is not uncommon, if she develops hives again please discontinue. Reinforced conservative measures including hydration, sodium, compression, and exercise. Will follow up after testing. Plan: Zio Complete echo 20 minute tilt Conservative measures Consult to epilepsy Follow up 3-4 months or day of testing for exam Other caregivers: Primary Care Provider: Agustin Ramos MD, MD Current Outpatient Medications Medication Sig divalproex DR (DEPAKOTE) 250 mg EC tablet Take 250 mg by mouth three times a day. Desogestrel-Ethinyl Estradiol (APRI) 0.15-0.03 mg per tablet Take 1 tablet by mouth once daily. ALBUTEROL INHALATION Inhale as instructed. magnesium oxide (MAG-OX) 400 mg (241.3 mg magnesium) tablet Take 400 mg by mouth once daily. riboflavin, vitamin B2, (VITAMIN B-2 ORAL) Take by mouth. ubrogepant (UBRELVY) 50 mg tablet Take 50 mg by mouth once daily as needed for migraine headache (see administration instructions). desvenlafaxine ER (PRISTIQ) 25 mg 24 hr tablet TAKE 1 TABLET BY MOUTH DAILY FOR MOOD omeprazole (PRILOSEC) 20 mg capsule Take 20 mg by mouth. fexofenadine (RADHA) 180 mg tablet Take 180 mg by mouth. No current facility-administered medications for this visit. ALLERGIES Not on File History reviewed. No pertinent past medical history. History reviewed. No pertinent surgical history. FAMILY HISTORY Problem Relation Age of Onset Seizures No Family History SOCIAL HISTORY: -Lives in [place], [place] -Patient lives alone? 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 Yes Review of Systems All other systems reviewed and are negative. IMPRESSION: 1. Psychogenic nonepileptic seizure (F44.5) - Episodes characterized by staring, limpness, and unresponsiveness; EEG during episodes showed normal electrical activity, indicating non-epileptic nature. - Depakote 250 mg TID initiated by psychiatrist, resulting in significant reduction in episode frequency and duration; episodes now occur approximately once every two weeks and last about 10 minutes. - Heat and bright flashing lights identified as triggers for episodes. - Referral to [facility]'s psychogenic non-epileptic seizure clinic, led by Dr. Roth and Dr. Bond, for cognitive behavioral therapy. - Patient advised to schedule an appointment with the clinic and to keep me updated on progress via Sofea. - Discussed potential need for repeat EMU study if episodes worsen or if current treatment becomes ineffective. - Patient advised to consult psychiatrist regarding potential adjustment of Depakote dosage or formulation due to reported wearing off effects. - Advised against driving until episodes are completely resolved. The patient's compliance with therapy has been: Excellent PLAN: Continue taking Depakote DR 250 mg three times a day Keep a log of your episodes noting triggers such as heat and bright flashing lights. Monitor for any increase in frequency or severity of episodes. Call the referral clinic at [phone] to schedule an appointment with the psychogenic non-epileptic seizure specialists (Dr. Roth and Dr. Bond) at [facility]. The first visit is expected to be in person. Maintain your ongoing therapy sessions with your current trauma specialist. Communicate any changes-including if your episodes return or the benefit from Depakote lessens-via xaitmentt so that further evaluation or adjustments (such as a possible repeat EMU study or medication review with your psychiatrist) can be considered. Data reviewed as above including: electronic medical record Testing Ordered Consult to: Psychology Education Patient was advised to not drive until released by a physician. Patient was given my clinic contact information. I discussed the risks, benefits and alternatives of the medical plan with the patient. Questions were answered. The patient agreed with the plan as discussed. FOLLOW-UP: Return if symptoms worsen or fail to improve. I spent a total of 60 minutes on the date of the service which included: preparing to see the patient [id number] patient care completing clinical documentation obtaining and/or reviewing separately obtained history counseling and educating the patient/family/caregiver ordering medications, tests, or procedures communicating results to the patient/family/caregiver Priscilla Gonzales MD cc: Primary Care Physician: Agustin Ramos MD, MD [address] [place] [id number] Referring: Chadd Fisher [address] [facility] [id number] Patient: Ms. Cari Quijano [address] [facility] [id number] documented in this encounter [facility] 10-12-2024 History of Present illness Narrative Images from the original note were not included. [address] [facility] [id number] Patient: Cari Quijano Date of : 1995 Encounter Date: 10/12/2024 History of Present Illness: The patient is a 29 y.o. female, established patient, and is here for seizure-like episodes (nonepileptic seizures). Patient seen in the office today, accompanied by her . Patient was initially seen in our office 06/22/2024, at that time the patient was evaluated for unresponsive episodes which can be prolonged, there was high suspicion that these are likely nonepileptic events, we ordered LTME, tilt-table test and psychiatry follow-up. Since then, the patient continued to have same episodes, ranging in duration from few minutes up to 1 hour, Tilt-table study completed early June 2024, it was abnormal and reportedly concerning for postural orthostatic tachycardia syndrome. ( At baseline BP 122/82, pulse 75 >> at 70 upright position BP 134/79, pulse 125). Patient was given referral to Cardiology, and they recommended lifestyle modifications, increase fluid intake and compression stocking. Patient was electively admitted for EEG monitoring 08/13/2024-08/16/2024, 5 typical events were captured which were associated with unresponsiveness, unable to interact or move, episodes lasted up to 10 minutes, there was no electrographic correlation with any of these events. Patient was reassured and diagnosed with nonepileptic seizures. Patient also continued to have migraine headaches, she was having bad headaches on average once a week, she had ED visit for migraine which improved after IV migraine cocktail. Patient has been also seeing Neurology provider at [facility] via telemedicine, no specific recommendations made. There was plan to repeat tilt-table test after cardiology clearance. In late July/early August 2024, patient was started on Depakote 250 mg EC TID by her psychiatrist, after which the patient started feeling significant improvement, she is not having prolonged passing-out episodes anymore, her memory is much better and apparently her mood is also better. Patient said that sometimes she get brain fogginess episodes lasting up to 10 minutes, usually if she was late on her Depakote. She usually takes the 2nd dose of Depakote around 3 p.m., patient indicated that if she was late even 10 minutes she will start feeling brain foggy and speech difficulty. Overall, patient is happy today with her level of symptom control, she will have a visit with her psychiatrist next week, she will discuss with them the possibility of increasing the dose of Depakote or switching to Depakote ER. The patient has CMP last week, liver function test was normal. Initial visit and summary of her conditions: The patient is known to have bipolar disorder, ADHD, GERD, PTSD and history of migraine. Patient's history dates back to around December 2022 when she started having episodes of unresponsiveness, as reported these episodes are being preceded by sensation of brain fogginess, pressure at the back of her head, she is able to sit down prior to losing consciousness and then she will be unresponsive. Patient scribed that she will be able to hear voices and she will be aware of her surroundings, but unable to move or respond. These episodes will be followed by feeling tired, blurry vision, dizziness and nausea along with heaviness of the arms. As reported, these episodes lasting 30-90 minutes, they have been happening once per week, however recently they increased in frequency up to multiple times within 1 day. Patient was admitted to [facility] in mid May 2024 due to blurry vision and increasing frequency of these episodes, neuro workup including brain MRI and EEG were unremarkable, U tox was positive for amphetamine, patient was evaluated by Neurology and there was concern for PNES, patient was discharged with recommendations for outpatient evaluation and psychotherapy. According to the patient and her , these episodes are still increasing in frequency, which patient usually feels pressure at the back of her head before these spells, followed by dizziness, for which she usually has to sit down, subsequently she will become unresponsive for 15 minutes, to 90 minutes. Many of these episodes were witnessed by the , who described that the patient will be unresponsive with eyes closed, flaccid without stiffening or shaking, usually she will be aware of her surrounding, but she cannot talk or communicate. After these events, patient be lethargy, having blurry vision and sometimes double vision which can last for few days. Patient is also reporting bilateral hand tremors and memory and cognitive difficulties. She has history of psychosocial stressors, PTSD, nightmares and anxiety. She has been also diagnosed with bipolar disorder and ADHD Patient has a history of total abdominal hysterectomy. Previous workup and ancillary testing: Brain MRI with and without contrast 06/15/2024: Normal study Echocardiogram August 2020: Unremarkable 12 hours EEG monitoring 06/15/2024: Normal EEG recording Tilt-table study completed early June 2024, it was abnormal and reportedly concerning for postural orthostatic tachycardia syndrome. ( At baseline BP 122/82, pulse 75 >> at 70 upright position BP 134/79, pulse 125) EEG monitoring 08/13/2024-08/16/2024: 5 typical events were captured which were associated with unresponsiveness, unable to interact or move, episodes lasted up to 10 minutes, there was no electrographic correlation with any of these events. Patient was reassured and diagnosed with nonepileptic seizures. Allergies: Bee venom protein (honey bee), Lamotrigine, Hydrocodone, Lurasidone, Erythromycin, and Zithromax [azithromycin] Review of Relevant Patient Questionnaires: HIT 6: No data to display PHQ-9: 08/13/2024 4:45 PM 06/22/2024 3:24 PM 06/08/2024 10:08 AM 02/09/2024 2:26 PM 01/10/2024 3:53 PM 12/06/2023 8:37 AM 11/21/2023 4:32 PM PM AMB PHQ 9 Little interest or pleasure in doing things 0 0 0 0 0 0 0 Feeling down, depressed, or hopeless 0 0 0 0 0 0 0 Trouble falling or staying asleep, or sleeping too much 0 0 Feeling tired or having little energy 0 0 Poor appetite or overeating 0 0 Feeling bad about yourself - or that you are a failure or have let yourself or your family down 0 0 Trouble concentrating on things, such as reading the newspaper or watching television 0 0 Moving or speaking so slowly that other people could have noticed. Or the opposite - being so fidgety or restless that you have been moving around a lot more than usual 0 0 Thoughts that you would be better off , or of hurting yourself in some way 0 0 Total Score 0 0 0 0 0 0 0 If you checked off any problems, how difficult have these problems made it for you to do your work, take care of things at home, or get along with other people? Not difficult at all PHQ-15: No data to display GARY-7: No data to display PTSD: No data to display Lyles: No data to display JUDIE-10: No data to display Headache Questionairre Past Medical, Family, Surgical, and Social History Update: The following portions of the patient's history were reviewed and updated as appropriate: allergies, current medications, past family history, past medical history, past social history, past surgical history and problem list. Past Medical History: Diagnosis Date ADHD (attention deficit hyperactivity disorder) Anxiety Asthma Bipolar 1 disorder ([facility]) Complex tear of medial meniscus, current injury, left knee, initial encounter 04/26/2022 Conversion disorder 01/07/2024 Depression Endometriosis Migraines Panic disorder POTS (postural orthostatic tachycardia syndrome) [facility] Family History Problem Relation Age of Onset Depression Father Anxiety disorder Father Alcohol abuse Paternal Uncle Depression Paternal Grandmother Anxiety disorder Paternal Grandmother Past Surgical History: Procedure Laterality Date ESOPHAGOGASTRODUODENOSCOPY HERNIA REPAIR 2003 HYSTERECTOMY LAPAROSCOPY with ovarian cystectomy in 2021 Current Outpatient Medications Medication Sig Dispense Refill acetaminophen (TylenoL) 325 mg tablet Take 2 tablets (650 mg total) by mouth every 6 (six) hours as needed for pain or headaches. 30 tablet 0 albuterol (PROVENTIL HFA;VENTOLIN HFA) 90 mcg/actuation inhaler Inhale 2 puffs every 4 (four) hours as needed for wheezing. 18 g 0 ashtraciedha root extract 300 mg tablet Take 300 mg by mouth in the morning and 300 mg before bedtime. Bacillus coagulans/inulin (PROBIOTIC WITH PREBIOTIC ORAL) Take 500,000 Million Cells by mouth in the morning. bacitracin-polymyxin B (POLYSPORIN) ophthalmic ointment Administer 0.5 inches into the left eye 2 (two) times a day as needed (eyelid stye). 3.5 g 0 desvenlafaxine (PRISTIQ) 25 mg 24 hr tablet Take 1 tablet (25 mg total) by mouth in the morning. divalproex (DEPAKOTE) 250 mg EC tablet Take 1 tablet (250 mg total) by mouth 3 (three) times a day. famotidine (PEPCID) 20 mg tablet Take 1 tablet (20 mg total) by mouth nightly. levomefolate/algal oil (L-METHYLFOLATE FORMULA ORAL) Take 15 mg by mouth in the morning. magnesium oxide (MAGOX) 400 mg tablet Take 1 tablet (400 mg total) by mouth in the morning. 9 tablet 4 methylphenidate HCl (CONCERTA) 36 mg CR tablet 1 tablet (36 mg total) every morning. ondansetron ODT (ZOFRAN ODT) 4 mg disintegrating tablet Dissolve 1 tablet (4 mg total) on tongue every 8 (eight) hours as needed for nausea for up to 10 doses. 10 tablet 0 promethazine (PHENERGAN) 25 mg tablet Take 1 tablet (25 mg total) by mouth every 6 (six) hours as needed (headache, nausea, or vomiting). 20 tablet 0 riboflavin, vitamin B2, 400 mg tablet Take 400 mg by mouth in the morning. 30 tablet 4 ubrogepant (UBRELVY) 50 mg tablet Take 50 mg by mouth as needed (Headache). 10 tablet 0 ziprasidone (GEODON) 20 mg capsule Take 1 capsule (20 mg total) by mouth in the morning and 1 capsule (20 mg total) in the evening. Take with meals. No current facility-administered medications for this visit. (All medications reviewed and updated by provider since last office visit or hospitalization) Tobacco History: Social History Tobacco Use Smoking Status Never Smokeless Tobacco Never (If patient a smoker, smoking cessation counseling offered) Social History: Social History Substance and Sexual Activity Alcohol Use Not Currently Review of Systems: Review of Systems Constitutional: Negative for chills, fatigue and fever. HENT: Negative for ear pain and sore throat. Eyes: Negative for photophobia and visual disturbance. Respiratory: Negative for chest tightness. Cardiovascular: Negative for chest pain. Gastrointestinal: Negative for abdominal pain. Genitourinary: Negative for dysuria. Musculoskeletal: Negative for back pain and neck pain. Neurological: Negative for dizziness, tremors, seizures, syncope and weakness. Psychiatric/Behavioral: Negative for confusion. Physical Exam: Vitals: Vitals: 10/12/24 0850 BP: 110/82 BP Site: Left Arm BP Postition: Sitting BP CUFF SIZE: L (13-17 inches) Weight: 75.8 kg (167 lb) Height: 165.1 cm (5' 5 ) Neurological Physical Exam: Neurologic: Mental status: Alert; oriented to time, place, person and situation. No aphasia. No dysarthria. Normal recent and remote memory. Normal attention span and concentration. Able to provide good history. Cranial nerves: II: pupils equal and reactive to light; visual cody full; III, IV, : extraocular movements intact; no ptosis. No nystagmus. V: facial sensation equal to touch in all 3 divisions bilaterally. No weakness of muscles of mastication. VII: face symmetric with normal eye closure and smile. VIII: hearing normal to rubbing fingers IX, X: palate elevates symmetrically; phonation normal. XI: Shoulder elevation symmetric and 5/5. Sternocleidomastoid muscle strength symmetric. XII: tongue midline with good movements. Motor: Normal bulk. No fasciculations. Normal muscle tone. Motor strength 5/5 in bilateral upper and bilateral lower extremities. No bradykinesia. No tremors. No other abnormal movements. Reflexes: DTRs 2/4 and symmetric bilaterally. No ankle clonus was noted. Plantar response is flexor bilaterally. Sensory examination: Sensation to light touch and pinprick is bilaterally symmetric and normal. Coordination: [id number] normal without dysmetria Gait and Station: Patient walks with narrow base and normal stride. Romberg's test negative Assessment and Plan: Cari Quijano is 29 years old female patient With history of PTSD, anxiety, ADHD and bipolar disorder, currently being evaluated for episodes of unresponsiveness, prolonged and can last up to 90 minutes, started in December 2023 , initially increased in frequency and severity, she had prolonged EEG monitoring which showed that these events are nonepileptic, patient had tilt-table study which was concerning for postural orthostatic tachycardia syndrome for which the patient started seeing Cardiology. Around August 2024 the patient was started on Depakote by psychiatrist, and her symptoms significantly improved. Impression: Recurrent paroxysmal episodes of unresponsiveness and brain fogginess, these might be migrainous phenomena versus nonepileptic seizures. Tilt-table study concerning for postural orthostatic tachycardia syndrome, patient does not have typical clinical features Plan: Patient will continue taking Depakote 250 mg EC TID for now. Will check ammonia level, free and total Depakote. Patient instructed to go to the lab before the next dose of Depakote to get trough Depakote level. Patient will see her psychiatrist next week, will defer adjustment of Depakote dose to the psychiatrist. Patient will continue follow-up with Cardiology and Neurology at [facility], there is a consideration to repeat tilt-table study. Follow-up in 8 months Diagnoses and all orders for this visit: Other migraine without status migrainosus, not intractable - Valproic acid, depakane; Future - Valproic Acid, Free, S; Future - Ammonia; Future Valproic acid-induced tremor - Valproic acid, depakane; Future - Valproic Acid, Free, S; Future - Ammonia; Future On valproic acid therapy Migraine aura occurring with and without headache Follow-up: 8 months Patient seen and examined in the presence of Dr. Jonathan Staton MD PGY 4 neurology resident Attending Attestation: I saw the patient. I performed the critical/nguyen portions of the service. I was directly involved in the management and treatment plan of the patient. I reviewed the resident's note. Additional Notes/Findings: Patient with bipolar disorder has episodes of altered awareness, brain fog that last up to 90 minutes previously. LTME had captured these episodes and no EEG correlation. She does report headache afterwards which may be related to prodromal/aura prior to the headache. Currently reporting brief mild symptoms before she is due to the next dose of depakote. No tremor or myoclonus noted on exam. Plan Continue Depakote per psychiatry. Check ammonia and Depakote level today. Recommend talking to psychiatry regarding extended versions of Depakote in the future. Other migraine without status migrainosus, not intractable On valproic acid therapy - Valproic acid, depakane; Future - Valproic Acid, Free, S; Future - Ammonia; Future Migraine aura occurring with and without headache documented in this encounter [facility] 09-26-2024 History of Present illness Narrative Reason for Appointment: Patient ID: Cari Quijano is a 29 y.o. female who presents for Hot Flashes (/) and Pelvic Pain Patient presents today for Acute Visit. MEDICATIONS Current Outpatient Medications Medication Instructions acetaminophen (TYLENOL) 650 mg, Every 6 hours PRN albuterol HFA 90 mcg/act inhaler 2 puffs, Every 4 hours PRN Concerta 36 mg, Oral, Every morning Depakote 250 mg, 3 times daily ibuprofen 800 mg, Every 8 hours LORazepam (ATIVAN) 0.5 mg, Daily RT magnesium oxide (MAG-OX) 400 mg, Daily Pristiq 25 mg, Daily promethazine (PHENERGAN) 25 mg, Every 6 hours PRN riboflavin (Vitamin B-2) 400 MG tablet 1 tablet, Every morning Ubrelvy 50 mg, Daily ziprasidone (GEODON) 20 mg, Every morning ziprasidone (GEODON) 40 mg, Nightly ALLERGIES Allergies Allergen Reactions Lamotrigine Rash and Swelling Other Reaction(s): Unknown Other Reaction(s): Swelling, facial swelling Other Reaction(s): Unknown Other Reaction(s): Swelling, facial swelling Acetaminophen Other Reaction(s): Hallucinating Bee Venom Unknown Other reaction(s): Unknown Erythromycin Base Other Reaction(s): Rash Hydrocodone Other Reaction(s): Hallucinating, Hallucinations Other Reaction(s): Hallucinating Other Reaction(s): Hallucinating Other Reaction(s): Hallucinating, Hallucinations Other Reaction(s): Hallucinating Hydrocodone-Acetaminophen Hallucinations Lurasidone Other Reaction(s): Other (See Comments) Increased depression/SI Other Reaction(s): Depression Other Reaction(s): Depression, SUICIDAL Increased depression/SI Other Reaction(s): Other (See Comments) Increased depression/SI Other Reaction(s): Depression Other Reaction(s): Depression, SUICIDAL Azithromycin Rash and Swelling Other Reaction(s): Dermatitis, pain, Unknown When taken PO Other Reaction(s): Rash Erythromycin Itching and Rash Other Reaction(s): Dermatitis, Other (See Comments), pain, Unknown At injection site Administered d/t PPROM, discontinued infusion after rxn PROBLEMS Active Ambulatory Problems Diagnosis Date Noted Pelvic pain 07/04/2023 Pain of ovary 07/04/2023 Pre-op evaluation 07/04/2023 Resolved Ambulatory Problems Diagnosis Date Noted No Resolved Ambulatory Problems Past Medical History: Diagnosis Date Abdominal pain, LLQ Abnormal weight gain ADHD (attention deficit hyperactivity disorder) ([facility]/HCC) Amenorrhea Anxiety Asthma ([facility]) Bipolar disorder ([facility]) Endometriosis Family planning Major depressive disorder (CMS/HCC) Missed menses Obesity Panic disorder ([facility]) PCOS (polycystic ovarian syndrome) Premenstrual syndrome HISTORY PAST MEDICAL HISTORY SOCIAL HISTORY Past Medical History: Diagnosis Date Abdominal pain, LLQ Abnormal weight gain ADHD (attention deficit hyperactivity disorder) (CMS/HCC) Amenorrhea Anxiety Asthma ([facility]) Bipolar disorder ([facility]/HCC) Endometriosis Family planning Major depressive disorder (CMS/HCC) Missed menses Obesity Panic disorder ([facility]/HCC) PCOS (polycystic ovarian syndrome) Premenstrual syndrome Social History Tobacco Use Smoking status: Never Smokeless tobacco: Never Substance Use Topics Alcohol use: Yes Comment: occasional alcohol use; caffeine: 1-2 cups/day Drug use: Never FAMILY HISTORY Family History Problem Relation Name Age of Onset Hypertension Mother Hypothyroidism Mother Hyperlipidemia Father Depression Father Stroke Paternal Grandmother Cancer Paternal Grandmother Hiatal hernia Daughter SURGICAL HISTORY Past Surgical History: Procedure Laterality Date HIATAL HERNIA REPAIR 2003 LAPAROSCOPY DIAGNOSTIC / BIOPSY / ASPIRATION / LYSIS [employer] [] LAPAROSCOPY DIAGNOSTIC / BIOPSY / ASPIRATION / LYSIS 05/2021 left ovarian cystectomy PAP SMEAR 04/28/2021 negative ROBOTIC ASSISTED HYSTERECTOMY 02/15/2024 SALPINGECTOMY 02/15/2024 REVIEW OF SYSTEMS Review of Systems: Review of Systems Constitutional: Positive for hot flashes. Genitourinary: Positive for pelvic pain. Psychiatric/Behavioral: Positive for dysphoric mood. OBJECTIVE Objective: Physical Exam Constitutional: Appearance: Normal appearance. She is well-developed. Genitourinary: Vulva normal. Vaginal cuff intact. Cervix is absent. Uterus is absent. Cardiovascular: Rate and Rhythm: Normal rate and regular rhythm. Abdominal: General: Bowel sounds are normal. There is no distension. Palpations: Abdomen is soft. Tenderness: There is no abdominal tenderness. There is no guarding or rebound. Musculoskeletal: General: No swelling. Normal range of motion. Right lower leg: No edema. Left lower leg: No edema. Neurological: Mental Status: She is alert and oriented to person, place, and time. Skin: General: Skin is warm and dry. Psychiatric: Mood and Affect: Mood normal. Behavior: Behavior normal. Vitals and nursing note reviewed. Exam conducted with a keeper helper present. Vitals: Estimated body mass index is 27.59 kg/m as calculated from the following: Height as of 11/08/23: 5' 5 . Weight as of this encounter: 165 lb 12.8 oz. BP: 120/70 Patient's last menstrual period was 10/21/2023. ASSESSMENT & PLAN ICD-10-CM 1. Hot flashes R23.2 POCT urinalysis dipstick manually resulted SURESWAB(R) ADVANCED VAGINITIS PLUS, TMA CHLAMYDIA TRACHOMATIS (GENITO/STI) Neisseria gonorrhea DNA probe, direct 2. Pelvic pain in female R10.2 POCT urinalysis dipstick manually resulted SURESWAB(R) ADVANCED VAGINITIS PLUS, TMA CHLAMYDIA TRACHOMATIS (GENITO/STI) Neisseria gonorrhea DNA probe, direct Pt presents with pelvic pain and hot flashes. Pt refused cultures. Pt given labs to have obtained. Pt to start apri for hormone control Documented by Venessa Sheth LPN on behalf of: Ron Valenzuela DO documented in this encounter [facility] 09-04-2024 Miscellaneous Notes Images from the original note were not included. Refill Request: ubrogepant (UBRELVY) 50 mg tablet Sig: Take 50 mg by mouth as needed (Headache). Last Seen: 06/22/2024 Last Refilled: 08/09/2024 documented in this encounter [facility] 09-04-2024 Telephone encounter Note Images from the original note were not included. Refill Request: ubrogepant (UBRELVY) 50 mg tablet Sig: Take 50 mg by mouth as needed (Headache). Last Seen: 06/22/2024 Last Refilled: 08/09/2024 [facility] 08-31-2024 Instructions Chadd Fisher APRN.[employer] - 08/31/2024 2:38 PM EDT Zio Complete echo (if okay continue with tilt) 20 minute tilt Consult to epilepsy Conservative measures Follow up 3-4 months or day of testing for exam Conservative Measures: Make all postural changes from lying to sitting or sitting to standing slowly. Drink to 2.0 -2.5 L of fluids per day. With bad symptoms, drink 500 cc of water quickly. This will result in an increased blood pressure within 5 minutes of drinking the water. The effect will last up to one hour and may improve orthostatic intolerance. Increase sodium in the diet to 3 - 5 g per day. If not helpful and BP is stable, may try 5-7 g per day. IF BLOOD PRESSURE RISES OR IS RISING CUT BACK ON SALT LOADING. Sugar free Liquid IV, Nuun tabs, powerade / gatorade (zero formulations are OK), pedialyte, LMNT, Body Armor, booey, salt chews, drip drop are all OK. Avoid large meals which can cause low blood pressure during digestion. It is better to eat smaller meals more often than three large meals. Avoid alcohol. Alcohol and cause blood to pool in the legs which may worsen low blood pressure reactions when standing. Avoid excessive caffeine intake as it may increase urine production and reduce blood volume. Perform lower extremity exercises to improve strength of the leg muscles. This will help prevent blood from a pooling in the legs when standing and walking. Preferred exercises are walking, squatting or stationery bicycling. An increased exercise duration by weekly should be considered. Use custom fitted elastic support stockings. These will reduce a tendency for blood to pool in the legs when standing and may improve orthostatic intolerance. Please try 30-40 mmHg compression. Raise the head of the bed by 6 to 10 inches. The entire bed must be at an angle. Raising only the head portion of the bed at waist level or using pillows will not be effective. Raising the head of the bed will reduce urine formation overnight and there will be more volume in the circulation in the morning. Use physical counter maneuvers such as leg crossing, or leg raising and resting the leg on a chair. These maneuvers increase blood pressure and can improve orthostatic intolerance quickly and transiently. documented in this encounter [facility] 08-31-2024 History of Present illness Narrative Images from the original note were not included. [facility] Follow-Up VIRTUAL VISIT This is a virtual visit using [employer] Video Visit. It required patient-provider interaction for the medical decision making as documented below. I have communicated my name and active licensure. The patient's identity and physical location were verified at the time of this visit. Either the patient or their legal volunteer patient representative has been informed of the risks and benefits of -- and alternatives to -- treatment through a remote evaluation and consents to proceed with the evaluation remotely. Cari Quijano is a 29 year old female here today for a follow up. Last Visit 07/13/2024 virtual IMPRESSION/PLAN: (R55) Transient loss of consciousness (primary encounter diagnosis) (R42) Orthostatic lightheadedness (R00.0) Racing heart beat Cari Quijano is a 29 year old female with past medical history of anxiety, bipolar 1, asthma, bulimia, migraines. She is here today to establish care and treatment of episodes of transient alteration of awareness/transient loss of consciousness, orthostatic lightheadedness, and tachycardia, ongoing since March 2024. Around this time she had increased emotional distress/stress. Episodes have progressively increased, now occurring daily within the last month, she can have 5 episodes in one day, lasting minutes to 1.5 hours. Workup thus far completed locally, revealed normal brain MRI and 12 hour EEG. She will be admitted to EMU next month for 5 day evaluation. I have suspicion for non epileptic seizures given prolonged duration and frequency. I do believe there may be an overlap with POTS or orthostatic hypotension as episodes often triggered by position changes or exertion. Outside hospital tilt table test was limited due to lack of minute by minute report however reporting POTS. Discussed with patient repeat tilt here at [facility] following EMU admission for flowsheet of vital signs to help guide treatment. Patient reports abnormal EKG at recent ER visit, she will be following up with local cardiology and repeating echo. 2020 echo unremarkable. Plan for zio monitor today. Exam limited today due to virtual visit, recommend inh person evaluation at next visit. We discussed increasing non pharmacological measures including hydration, sodium, exercise, and compression. Driving restrictions reviewed. 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 But wants to see Harrison Roth here at [facility] for PNES Switched up medications which she feels better on Still having episodes of transient alteration of awareness/transient loss of consciousness, She knows her POTS is triggering episodes of PNES and vice versa Scheduled echo 09/14 Didn't do tilt yet States bending down and standing lightheadedness can occur Better with salt and water Elevation changes over the bridge causes near syncope Broke out in hives from zio monitor States she broke out with EEG leads too +Heart racing which causes chest discomfort Kept having high BP in the EMU 139-140 States low BP 90s sytolics at her last apt Cousin with POTS Current management of orthostatic condition Water: tries to do 80 oz Salt: tried increasing Stockings: wore the knee highs when working, legs hurt when she takes them off - shape wear helps Relevant Current Medications: None Medications tried previously (failed): Bisoprolol - bottomed out her BP, controlled her HR though Medications Reviewed Medication Administration Recorded Reviewed Allergies Reviewed PAST MEDICAL HISTORY: There is no problem list on file for this patient. No past surgical history on file. family history is not on file. EXAM: Exam is observational at best. General Appearance: well appearing, in no acute distress Mental status evaluation during the interview and examination showed normal level of consciousness, orientation, language, memory, praxis, and higher intellectual function Affect: Normal Speech: normal Cranial Nerves: III, IV, -EOMI: full. VII-face is symmetric without evidence of weakness. VIII-hearing intact. XII-tongue protrudes midline with normal movements. Review of studies: 08/14/2024 EMU at [facility] Continuous video EEG monitoring study History: This is a 29 yo woman with a history of seizure disorder who is undergoing continuous video EEG recording for subclinical and clinical events. Procedure: This is a standard [facility] EEG monitoring report. Recording was from 15:48 on 08/13 to 06:00 on 08/14, for a total duration of 14 hours and 12 minutes using scalp and ear electrodes in the 10-20 international System. Recording was reviewed with multiple reformatted montages. Quantitative digital analysis data was utilized as needed. Technical Description: There is a well-defined 20-30 microvolt rhythmical 9-10 hertz posterior dominant rhythm noted. The background activity is composed of 10-25 microvolt frontal central beta intermixed with central theta and alpha range frequencies noted. During the recording there is mild attenuation of background activity with appearance of vertex sharp wave and positive occipital sharp transients of sleep (POSTS) indicative stage 1 sleep as well as sleep spindles indicative stage 2 sleep. Slow-wave sleep was also recorded. No interictal epileptiform activity in the form of spike or sharp wave is noted. Careful review of the spike and seizure detection files as well as quantitative digital analysis data fails reveal any evidence of interictal or ictal epileptiform activity. Two clinical push bottom events were reported during this recording at 19:01 on 08/13 and 03:38 on 08/14. The patient felt weird during these 2 events with preservation of consciousness and there is no evident motor activity. No electrographic epileptiform or abnormal activity noted during these events. Clinical Interpretation: Day 1 of video EEG monitoring documents normal background activity without evidence of any interictal or ictal epileptiform discharges. Two clinical push bottom events were reported during this recording at 19:01 on 08/13 and 03:38 on 08/14 as described above. No electrographic epileptiform or abnormal activity noted during these events. This is consistent with non epileptic seizures verses frontal lobe focal seizures. 06/15/2024 EEG 1 day recording (12 hour) Clinical Correlation: This is a normal EEG recording. No epileptiform discharges or lateralizing signs were seen. Absence of epileptiform discharges does not exclude the diagnosis of epilepsy. This study also shows evidence of sedative medication use. 06/15/2024 MRI brain w wo Comparison: Head CT 06/14/2024 Findings: The ventricular system and cortical sulci are for patient's age group. There is excellent white-white matter differentiation. There is no gross focal brain parenchymal signal abnormality. There is no localized area of restricted diffusion. There are no intracranial hemorrhagic changes. Corpus callosum, cerebellopontine angle and basal cisterns are well-preserved and grossly unremarkable. Pituitary stock is midline. Following contrast injection, there is no pathological enhancement. Both temporal lobes are symmetric and grossly unremarkable. IMPRESSION: Normal study 07/02/2024 tilt table Impression Abnormal head up tilt table study with postural orthostatic tachycardic syndrome RECOMMENDATIONS: Increase p.o. fluids and obtain upright posture slowly. Follow-up with ordering physician for further recommendations and evaluation. Narrative TECHNIQUE: After informed consent was obtained and confirmed, Cari Quijano who is a 29 y.o. female was brought to the procedure area in a fasting state. The patient was monitored supine with continuous telemetry and intermittent automatic blood pressure cuff monitoring for 10 minutes. The Baseline blood pressure was 122/82 with a heart rate of 75 at baseline. The patient was then placed in a 70 upright position. During that interval, blood pressure recordings ranged from a high of 134/97 to a low of 107/82. The maximum heart rate recorded was 125 bpm, and the minimum was 84 bpm. Patient symptoms included Diaphoresis; Near Syncope (dizzy, weakness, blurry vision, head pressure, lightheaded) Duration of patient standing in 70 degree upright position was 20 minutes. Test was stopped due to Syncope The procedure was ended by bringing the patient back to zero (0) degree. The patient was monitored until baseline conditions resumed. The patient tolerated the procedure well and there were no complications. CT brain 12/19/2022 IMPRESSION: * No acute intracranial findings. IMPRESSION/PLAN: (R55) Transient loss of consciousness (primary encounter diagnosis) (R00.2) Heart palpitations (R42) Orthostatic lightheadedness (F44.5) Psychogenic nonepileptic seizure Cari Quijano is a 29 year old female here today for follow up. Since last visit patient was admitted to EMU, diagnosed with psychogenic non epileptic seizures. Patient wishes to start treatment for PNES at [facility], consult placed to epilepsy to assist with referrals. There is overlap with positional symptoms (lightheadedness, dizziness, heart racing), will be completing 20 minute tilt table test to evaluate for POTS vs [place] vs VVS. Repeat echo scheduled this month following concern of abnormal EKG at prior ER visit. Zio monitor was unable to be completed due to allergy to adhesives, plan for repeat with allergy sensitive adhesive. Explained redness and minor irritation from adhesive is not uncommon, if she develops hives again please discontinue. Reinforced conservative measures including hydration, sodium, compression, and exercise. Will follow up after testing. Plan: Zio Complete echo 20 minute tilt Conservative measures Consult to epilepsy Follow up 3-4 months or day of testing for exam I spent a total of 30 minutes on the date of the service which included preparing to see the patient, [id number] patient care, completing clinical documentation, obtaining and/or reviewing separately obtained history, performing a medically appropriate examination, counseling and educating the patient/family/caregiver, and ordering medications, tests, or procedures. Chadd Fisher APRN.[facility] [address] [place] [address]. [id number] Appointment: [phone] Answers submitted by the patient for this visit: Compass 31 (Submitted on 08/31/2024) In the past year, have you ever felt faint, dizzy, goofy , or had difficulty thinking soon after standing up from a sitting or lying position?: Yes In the past year, have you ever noticed color changes in your skin, such as red, white, or purple?: No In the past 5 years, what changes, if any, have occurred in your general body sweating?: I sweat much more than I used to Do your eyes feel excessively dry? : Yes Does your mouth feel excessively dry? : No For the symptom of dry eyes or dry mouth that you have had for the longest period of time, is this symptom:: Getting somewhat worse In the past year, have you noticed any changes in how quickly you get full when eating a meal?: I haven't noticed any change In the past year, have you felt excessively full or persistently full (bloated feeling) after a meal?: Sometimes In the past year, have you vomited after a meal? : Never In the past year, have you had a cramping or colicky abdominal pain?: Sometimes In the past year, have you had any bouts of diarrhea?: Yes In the past year, have you been constipated? : No In the past year, have you ever lost control of your bladder function?: Never In the past year, have you had difficulty passing urine?: Never In the past year, have you had trouble completely emptying your bladder?: Occasionally In the past year, without sunglasses or tinted glasses, has bright light bothered your eyes?: Frequently In the past year, have you had trouble focusing your eyes?: Frequently Is this most troublesome symptom with your eyes (i.e. sensitivity to bright light or trouble focusing) getting:: Getting somewhat worse (Submitted on 08/31/2024) When standing up, how frequently do you get these feelings or symptoms?: Occasionally How would you rate the severity of these feelings or symptoms?: Moderate In the past year, have these feelings or symptoms that you have experienced:: Gotten much worse (Submitted on 08/31/2024) How frequently does this occur?: Rarely How severe are these bouts of diarrhea?: Mild Are your bouts with diarrhea getting:: Much better (Submitted on 08/31/2024) How severe is this sensitivity to bright light?: Moderate (Submitted on 08/31/2024) How severe is this focusing problem? : Moderate documented in this encounter [facility] 08-31-2024 Note HNO ID: [id number] Author: CHADD FISHER APRN.CNP Service: ? Author Type: Nurse Practitioner Type: Progress Notes Filed: 08/31/2024 14:39 Note Text: [facility] Follow-Up VIRTUAL VISIT This is a virtual visit using [employer] Video Visit. It required patient-provider interaction for the medical decision making as documented below. I have communicated my name and active licensure. The patient's identity and physical location were verified at the time of this visit. Either the patient or their legal volunteer patient representative has been informed of the risks and benefits of -- and alternatives to -- treatment through a remote evaluation and consents to proceed with the evaluation remotely. Cari Quijano is a 29 year old female here today for a follow up. Last Visit 07/13/2024 virtual IMPRESSION/PLAN: (R55) Transient loss of consciousness (primary encounter diagnosis) (R42) Orthostatic lightheadedness (R00.0) Racing heart beat Cari Quijano is a 29 year old female with past medical history of anxiety, bipolar 1, asthma, bulimia, migraines. She is here today to establish care and treatment of episodes of transient alteration of awareness/transient loss of consciousness, orthostatic lightheadedness, and tachycardia, ongoing since March 2024. Around this time she had increased emotional distress/stress. Episodes have progressively increased, now occurring daily within the last month, she can have 5 episodes in one day, lasting minutes to 1.5 hours. Workup thus far completed locally, revealed normal brain MRI and 12 hour EEG. She will be admitted to EMU next month for 5 day evaluation. I have suspicion for non epileptic seizures given prolonged duration and frequency. I do believe there may be an overlap with POTS or orthostatic hypotension as episodes often triggered by position changes or exertion. Outside hospital tilt table test was limited due to lack of minute by minute report however reporting POTS. Discussed with patient repeat tilt here at [facility] following EMU admission for flowsheet of vital signs to help guide treatment. Patient reports abnormal EKG at recent ER visit, she will be following up with local cardiology and repeating echo. 2020 echo unremarkable. Plan for zio monitor today. Exam limited today due to virtual visit, recommend inh person evaluation at next visit. We discussed increasing non pharmacological measures including hydration, sodium, exercise, and compression. Driving restrictions reviewed. 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 But wants to see Harrison Roth here at [facility] for PNES Switched up medications which she feels better on Still having episodes of transient alteration of awareness/transient loss of consciousness, She knows her POTS is triggering episodes of PNES and vice versa Scheduled echo 4/18 Didn't do tilt yet States bending down and standing lightheadedness can occur Better with salt and water Elevation changes over the bridge causes near syncope Broke out in hives from zio monitor States she broke out with EEG leads too +Heart racing which causes chest discomfort Kept having high BP in the EMU 139-140 States low BP 90s sytolics at her last apt Cousin with POTS Current management of orthostatic condition Water: tries to do 80 oz Salt: tried increasing Stockings: wore the knee highs when working, legs hurt when she takes them off - shape wear helps Relevant Current Medications: None Medications tried previously (failed): Bisoprolol - bottomed out her BP, controlled her HR though Medications Reviewed Medication Administration Recorded Reviewed Allergies Reviewed PAST MEDICAL HISTORY: There is no problem list on file for this patient. No past surgical history on file. family history is not on file. EXAM: Exam is observational at best. General Appearance: well appearing, in no acute distress Mental status evaluation during the interview and examination showed normal level of consciousness, orientation, language, memory, praxis, and higher intellectual function Affect: Normal Speech: normal Cranial Nerves: III, IV, -EOMI: full. VII-face is symmetric without evidence of weakness. VIII-hearing intact. XII-tongue protrudes midline with normal movements. Review of studies: 08/14/2024 EMU at [facility] Continuous video EEG monitoring study History: This is a 29 yo woman with a history of seizure disorder who is undergoing continuous video EEG recording for subclinical and clinical events. Procedure: This is a standard [facility] EEG monitoring report. Recording was from 15:48 on 08/13 to 06:00 on 08/14, for a total duration of 14 hours and 12 minutes using scalp and ear electrodes in (more content not included)... [facility] 08-31-2024 Note HNO ID: [id number] Author: SHARAD ROSENTHAL MD Service: ? Author Type: Physician Type: Procedures Filed: 10/01/2024 15:34 Note Text: Patient Name: Cari Quijano : 1995 Ordering Provider: CHADD FISHER Indication: R00.2 Palpitations Type of Monitor: Extended Monitoring-Zio Patch Enrollment Dates: 09/03/2024-09/14/2024 IRHYTHM FINDINGS: Patient had a min HR of 44 bpm, max HR of 156 bpm, and avg HR of 88 bpm. Predominant underlying rhythm was Sinus Rhythm. Isolated SVEs were rare (<1.0%), and no SVE Couplets or SVE Triplets were present. No Isolated VEs, VE Couplets, or VE Triplets were present. [facility] 08-29-2024 History of Present illness Narrative Subjective Patient ID: Cari Quijano is a 29 y.o. female. The patient is here today for discharge follow up from hospital. Transition of Care Med Rec completed? Yes Discharged medications: Medications have been reviewed and reconciled with the most recent facility discharge document. Follow-up Associated symptoms include fatigue, myalgias, nausea (Occasionally following a POTS episode) and weakness. The following portions of the patient's history were reviewed and updated as appropriate: allergies, current medications, past family history, past medical history, past social history, past surgical history, problem list, and medication reconciliation was completed including current medication and post discharge medication. Patient had 5 day continuous EEG at [facility]. Had no actual seizure or epileptiform activity, despite symptomatic episodes of altered consciousness. Overall consensus was that her symptoms are not neurologic, but more likely related to the POTS. She continues to have symptoms intermittently. Generally has an aura or sensation that they are going to start, which includes feeling overstimulated , headache like a migraine, and then starts to feel lightheaded and gets her brain fog . Generally getting 1-3 episodes a day for several days in a row, and then will not have any for several days. Overall the symptoms are slightly less severe and less frequent than she was experiencing 3 months ago. However, her psych medicines have been changed and she is taking methylphenidate as part of her regimen. 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 She did try wearing a event monitor, but had a significant rash to the adhesive, so never wore it more than several hours. The previously ordered echocardiogram has not been done yet but is scheduled. She is complaining of feeling diffuse body aches and muscle tightness following these episodes. Took Toradol while in the hospital which helped, but she prefers not to take medications. Generally hot shower or massage will partially relieve the discomfort. Review of Systems Constitutional: Positive for activity change (Still not driving) and fatigue. Eyes: Negative for visual disturbance. Intermittent swollen, tender bump on the upper eyelid of the left eye. Previously had styes, and now has had 2 recurrences in the last several months. She generally self treats with warm compresses. Respiratory: Negative. Cardiovascular: Negative. Gastrointestinal: Positive for nausea (Occasionally following a POTS episode). Endocrine: Negative. Genitourinary: Negative. Musculoskeletal: Positive for myalgias and neck stiffness. Skin: Negative. Neurological: Positive for weakness and light-headedness. Psychiatric/Behavioral: Positive for decreased concentration. Under treatment for bipolar disorder Objective Physical Exam Assessment/Plan Cari was seen today for follow-up. She completed a 5 day continuous EEG monitoring as inpatient at [facility]. This was unremarkable. Needs to follow-up to plan her ongoing evaluation and treatment. Diagnoses and all orders for this visit: POTS (postural orthostatic tachycardia syndrome) - does have a positive tilt-table test. -Now seeing Neurology at [facility] POTS Clinic - not on any direct treatment, but is taking methylphenidate for psych issues - has been increasing her sodium intake - proceed with echocardiogram as ordered. Will check on alternative patches in order to complete the event monitor without developing rash. Nausea and vomiting, unspecified vomiting type - promethazine (PHENERGAN) 25 mg tablet; Take 1 tablet (25 mg total) by mouth every 6 (six) hours as needed (headache, nausea, or vomiting). - secondary to above episodes. Treat symptomatically with Phenergan Chalazion of left upper eyelid - recurrence of a previous problem - should continue using warm moist compresses to the eye when episodes occur followed by gentle massage of the lump - bacitracin-polymyxin B (POLYSPORIN) ophthalmic ointment; Administer 0.5 inches into the left eye 2 (two) times a day as needed (eyelid stye). 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 - consider routine massage therapy. We can make referral if needed. documented in this encounter [facility] 08-20-2024 Note HNO ID: [id number] Author: OKSANA HA APRN.SPECIAL DIET COOK Service: ? Author Type: Nurse Practitioner Type: Progress Notes Filed: 08/20/2024 13:13 Note Text: [facility] Review of Records Patient: Cari Quijano Address: [address] [place] [address] Impression: Review of records for Cari Quijano, a 29 year old female, being referred by Self to Any Epileptologist for further evaluation and treatment. Patient has previously diagnosed seizure like activity. EEG from 2024 reported as normal. MRI from 2024 reported no abnormalities. Patient has trialed 0 AEDs (lorazepam for anxiety). Since she is reporting near-daily seizures and her prior workup is unrevealing, VEEG is indicated for event characterization and diagnostic evaluation to determine best treatment options. -------- Summary: Onset: January 07, 2024 Recent Seizure Frequency: Every other day Seizure Description(s) Available: Type A: Has a warning of brain fog, left sided posterior headache by the base of her neck. This is followed by looking like she is sleeping, eyes close, can hear everything going on around her, but cannot respond at all Duration: 5 minutes to 90 minutes Current AED(s): Lorazepam Previous AED(s): None PMH: migraine headaches, GERD, bipolar disorder, ADHD, PTSD, anxiety PRIOR EVALUATIONS: [facility] [address] [place] [address] VEEG (06/15/2024): No epileptiform discharges or lateralizing signs were seen. Absence of epileptiform discharges does not exclude the diagnosis of epilepsy. EEG (08/13/2024-08/16/2024): No clinical events reported during this recording. Clinical Interpretation: Video EEG monitoring documents normal background activity without evidence of any interictal or ictal epileptiform discharges. Three non epileptic clinical events were captured at 15:32, 23:57 on 08/15 and 00:23 on 08/16. MRI brain wo/w contrast (06/15/2024): Normal study -------- GILMAR Recommendations: - Admit to EMU for VEEG monitoring, diagnostic evaluation Location: [facility] [place] - Visit with epileptologist prior to admission - Additional testing to be considered by epilepsy clinicians Signed: Oksana Ha APRN.SPECIAL DIET COOK August 20, [address] Boone for review and recommendations. ------- MD Recommendations (as discussed with Dr. Boone): - Please proceed with the above plan. Please route this encounter to the EMU Scheduling Pool ( P EMU ) or PMU Scheduling Pool ( P PMU ) through LOS AND Follow up PHASE 1.0 AND 1.5 ORDER SYNOPSIS Patient: Cari Quijano ([id number]) Best contact number: [phone] Insurance: Payor: HOLLI / Plan: BLUE CARD PPO OOS / Product Type: PPO / Scheduling Team: Please call for adult patients: EMU coordinator ([phone]) [place] Coordinator ([phone]) PMU coordinator([phone]) Last Code Striper ([phone]) Please call for pediatric patients: PMU coordinator ([phone]) [place] Coordinator ([phone]) EMU coordinator ([phone]) Last Code Striper ([phone]) 08/20/2024 -- Admission Type EMU Adult Number of Days requested 4 Location [facility] Admit Priority Routine 08/20/2024 PURPOSE Patient Being Considered for Epilepsy Surgery? No VEEG recommended to assess seizure burden, address new AND concerning syymptom-sign complex, and/or clarify syndromic epilepsy diagnosis? Yes 08/20/2024 -- Sphenoidal monitoring No Electrode placement Standard Appointments and Tests EPIL VEEG ADMIT TO EMU/PMU Consultations None Please route this encounter to the EMU Scheduling pool ( P EMU ) or PMU Scheduling pool ( P PMU ) through LOS AND Follow up Scheduling coordinators: For all VNS patients being scheduled for DANIEL, please schedule VNS off/on office visits. [facility] 08-20-2024 History of Present illness Narrative [facility] Review of Records Patient: Cari Quijano Address: [address] [place], [place] [id number] Impression: Review of records for Cari Quijano, a 29 year old female, being referred by Self to Any Epileptologist for further evaluation and treatment. Patient has previously diagnosed seizure like activity. EEG from 2024 reported as normal. MRI from 2024 reported no abnormalities. Patient has trialed 0 AEDs (lorazepam for anxiety). Since she is reporting near-daily seizures and her prior workup is unrevealing, VEEG is indicated for event characterization and diagnostic evaluation to determine best treatment options. --------Summary: Onset: January 07, 2024 Recent Seizure Frequency: Every other day Seizure Description(s) Available: Type A: Has a warning of brain fog, left sided posterior headache by the base of her neck. This is followed by looking like she is sleeping, eyes close, can hear everything going on around her, but cannot respond at all Duration: 5 minutes to 90 minutes Current AED(s): Lorazepam Previous AED(s): None PMH: migraine headaches, GERD, bipolar disorder, ADHD, PTSD, anxiety PRIOR EVALUATIONS: [facility] [address] [place] [address] VEEG (06/15/2024): No epileptiform discharges or lateralizing signs were seen. Absence of epileptiform discharges does not exclude the diagnosis of epilepsy. EEG (08/13/2024-08/16/2024): No clinical events reported during this recording. Clinical Interpretation: Video EEG monitoring documents normal background activity without evidence of any interictal or ictal epileptiform discharges. Three non epileptic clinical events were captured at 15:32, 23:57 on 08/15 and 00:23 on 08/16. MRI brain wo/w contrast (06/15/2024): Normal study --------GILMAR Recommendations: - Admit to EMU for VEEG monitoring, diagnostic evaluation Location: [facility] [place] - Visit with epileptologist prior to admission - Additional testing to be considered by epilepsy clinicians Signed: Oksana Ha APRN.SPECIAL DIET COOK August 20, [address] Boone for review and recommendations. ------- MD Recommendations (as discussed with Dr. Boone): - Please proceed with the above plan. Please route this encounter to the EMU Scheduling Pool ( P EMU ) or PMU Scheduling Pool ( P PMU ) through LOS & Follow up PHASE 1.0 AND 1.5 ORDER SYNOPSIS Patient: Cari Quijano ([id number]) Best contact number: [phone] Insurance: Payor: HOLLI / Plan: LUIS BOYLE PPO OOS / Product Type: PPO / Scheduling Team: Please call for adult patients: EMU coordinator ([phone]) [place] Coordinator ([phone]) PMU coordinator([phone]) Last Code Striper ([phone]) Please call for pediatric patients: PMU coordinator ([phone]) [place] Coordinator ([phone]) EMU coordinator ([phone]) Last Code Striper ([phone]) 08/20/2024 -- Admission Type EMU Adult Number of Days requested 4 Location [facility] Admit Priority Routine 08/20/2024 PURPOSE Patient Being Considered for Epilepsy Surgery? No VEEG recommended to assess seizure burden, address new & concerning syymptom-sign complex, and/or clarify syndromic epilepsy diagnosis? Yes 08/20/2024 -- Sphenoidal monitoring No Electrode placement Standard Appointments and Tests EPIL VEEG ADMIT TO EMU/PMU Consultations None Please route this encounter to the EMU Scheduling pool ( P EMU ) or PMU Scheduling pool ( P PMU ) through LOS & Follow up Scheduling coordinators: For all VNS patients being scheduled for [facility]ANIEL, please schedule VNS off/on office visits. documented in this encounter [facility] 08-10-2024 History of Present illness Narrative Cari Quijano Date of visit: 08/10/2024 Date of : 1995 Age: 29 y.o. Patient Active Problem List Diagnosis Bipolar 1 disorder ([facility]) Generalized anxiety disorder with panic attacks Borderline personality disorder ([facility]) Post traumatic stress disorder (PTSD) Bulimia nervosa Asthma Chondromalacia patellae Complex tear of medial meniscus, current injury, left knee, initial encounter Complicated migraine Gross hematuria Insomnia Urge incontinence of urine Migraine with aura and without status migrainosus, not intractable premature rupture of membranes Recurrent episodes of unresponsiveness POTS (postural orthostatic tachycardia syndrome) Allergies Allergen Reactions Lamotrigine Rash and Swelling Other Reaction(s): Unknown Other Reaction(s): Swelling, facial swelling Bee Venom Protein (Honey Bee) Other reaction(s): Unknown Hydrocodone Other Reaction(s): Hallucinating Other Reaction(s): Hallucinating, Hallucinations Other Reaction(s): Hallucinating Lurasidone Other (See Comments) Increased depression/SI Other Reaction(s): Other (See Comments) Increased depression/SI Other Reaction(s): Depression Other Reaction(s): Depression, SUICIDAL Erythromycin Itching, Dermatitis, Rash, Other (See Comments) and pain At injection site Administered d/t PPROM, discontinued infusion after rxn Zithromax [Azithromycin] Swelling, Dermatitis, Rash and pain When taken PO Current Outpatient Medications Medication Sig Dispense Refill acetaminophen (TylenoL) 325 mg tablet Take 2 tablets (650 mg total) by mouth every 6 (six) hours as needed for pain or headaches. 30 tablet 0 albuterol (PROVENTIL HFA;VENTOLIN HFA) 90 mcg/actuation inhaler Inhale 2 puffs every 4 (four) hours as needed for wheezing. 18 g 0 cholecalciferol, vitamin D3, 2,000 units capsule Take by mouth. desvenlafaxine (PRISTIQ) 25 mg 24 hr tablet TAKE 1 TABLET BY MOUTH DAILY FOR MOOD eszopiclone (LUNESTA) 2 mg tablet 1 tablet (2 mg total) nightly. ketorolac (TORADOL) 10 mg tablet Take 1 tablet (10 mg total) by mouth every 6 (six) hours as needed for pain. 20 tablet 0 levomefolate/algal oil (L-METHYLFOLATE FORMULA ORAL) Take 15 mg by mouth in the morning. LORazepam (ATIVAN) 0.5 mg tablet Take 1 tablet (0.5 mg total) by mouth in the morning. magnesium oxide (MAGOX) 400 mg tablet Take 1 tablet (400 mg total) by mouth in the morning. 9 tablet 4 methylphenidate HCl (CONCERTA) 36 mg CR tablet 1 tablet (36 mg total) every morning. methylPREDNISolone (MEDROL, PACHECO,) 4 mg tablet follow package directions 21 tablet 0 promethazine (PHENERGAN) 25 mg tablet Take 1 tablet (25 mg total) by mouth every 6 (six) hours as needed (headache, nausea, or vomiting). 20 tablet 0 riboflavin, vitamin B2, 400 mg tablet Take 400 mg by mouth in the morning. 30 tablet 4 ubrogepant (UBRELVY) 50 mg tablet Take 50 mg by mouth as needed (Headache). 10 tablet 0 ziprasidone (GEODON) 20 mg capsule TAKE 1 TABLET BY MOUTH TWICE A DAY FOR MOOD. No current facility-administered medications for this visit. 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 She has been battling headaches and numerous episodes of unresponsiveness. She is being evaluated for his seizures or with a 5 day EEG coming up next week. She has an echocardiogram ordered which is pending. She has had difficulty with hypotension. Symptoms started after the of her daughter. She had a placenta abruption requiring urgent hysterectomy. She has no previous cardiac history. She has been following with [facility] through the [facility]. Past Medical History: Diagnosis Date ADHD (attention deficit hyperactivity disorder) Anxiety Asthma Bipolar 1 disorder (CMS-HCC) Conversion disorder 01/07/2024 Depression Endometriosis Migraines Panic disorder No data recorded No data recorded No data recorded Past Surgical History: Procedure Laterality Date ESOPHAGOGASTRODUODENOSCOPY HERNIA REPAIR 2003 HYSTERECTOMY LAPAROSCOPY with ovarian cystectomy in 2021 Family History Problem Relation Age of Onset Depression Father Anxiety disorder Father Alcohol abuse Paternal Uncle Depression Paternal Grandmother Anxiety disorder Paternal Grandmother Social History Socioeconomic History Marital status: Spouse name: Not on file Number of children: 1 Years of education: Not on file Highest education level: Associate degree: academic program Occupational History 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 Tobacco Use Smoking status: Never Smokeless tobacco: Never Vaping Use Vaping status: Never Used Substance and Sexual Activity Alcohol use: Yes Comment: occasionally Drug use: No Sexual activity: Yes Partners: Male Other Topics Concern Caffeine Use Yes Social History Narrative Not on file Social Drivers of Health Financial Resource Strain: Low Risk (04/26/2022) Overall Financial Resource Strain (CARDIA) Difficulty of Paying Living Expenses: Not very hard Food Insecurity: No Food Insecurity (08/10/2024) Hunger Screening Food Insecurity - Worry: Never True Food Insecurity - Inability: Never True Transportation Needs: No Transportation Needs (06/15/2024) PRAPARE - Transportation Lack of Transportation (Medical): No Lack of Transportation (Non-Medical): No Physical Activity: Unknown (04/26/2022) Exercise Vital Sign Days of Exercise per Week: 5 days Minutes of Exercise per Session: Patient declined Stress: Stress Concern Present (04/26/2022) [place] [employer] - Occupational Stress Questionnaire Feeling of Stress : Rather much Social Connections: Unknown (04/26/2022) Social Connection and Isolation Panel [NHANES] Frequency of Communication with Friends and Family: More than three times a week Frequency of Social Gatherings with Friends and Family: Twice a week Attends Holiness Services: Patient declined Active Member of Clubs or Organizations: No Attends Club or Organization Meetings: Patient declined Marital Status: Living with partner Interpersonal Safety: Unknown (06/15/2024) Humiliation, Afraid, Rape, and Kick questionnaire Fear of Current or Ex-Partner: No Emotionally Abused: No Physically Abused: Not on file Sexually Abused: No Housing Instability: Low Risk (06/15/2024) Housing Instability Housing Instability: No Review of Systems Review of Systems Constitutional: Negative. HENT: Positive for nosebleeds. Eyes: Negative. Cardiovascular: Negative. Respiratory: Negative. Endocrine: Negative. Hematologic/Lymphatic: Negative. Skin: Negative. Musculoskeletal: Positive for back pain and neck pain. Gastrointestinal: Negative. Genitourinary: Negative. Neurological: Positive for headaches, loss of balance and numbness. Psychiatric/Behavioral: Positive for depression. The patient is nervous/anxious. Allergic/Immunologic: Positive for environmental allergies. Vascular: Negative. CARDIOVASCULAR: Please review HPI. Physical Examination General appearance: Alert, oriented and cooperative. In no acute distress. Skin: Warm and dry to touch. Head: Normocephalic, without obvious abnormality, atraumatic. Ears, Nose, Mouth, Throat: Throat clear without erythema or exudate. Dentition intact. Eyes: Conjunctivae unremarkable, EOM intact. Neck: No JVD, No carotid bruit. Neck supple, trachea midline. Respiratory: Clear to auscultation bilaterally, no use of accessory muscles. Cardiovascular: RRR with normal S1 and S2 with no murmurs. Gastrointestinal: Soft, non-tender. Bowel sounds normal. Musculoskeletal: No peripheral edema. Neurologic: Oriented to time, person and place, affect appropriate. No focal/major motor defects noted. Psychiatric: Appropriate mood, memory and judgement. VITAL SIGNS: BP 134/70 Pulse 90 Ht 165.1 cm (5' 5 ) Wt 72.6 kg (160 lb) LMP 01/09/2024 SpO2 98% BMI 26.63 kg/m No orders of the defined types were placed in this encounter. Medications Discontinued During This Encounter Medication Reason traZODone (DESYREL) 100 mg tablet omeprazole (PriLOSEC) 20 mg capsule naratriptan (AMERGE) 2.5 mg tablet lisdexamfetamine (VYVANSE) 70 mg capsule ibuprofen (MOTRIN) 400 mg tablet FLUoxetine (PROzac) 40 mg capsule fexofenadine (RADHA) 180 mg tablet cloNIDine (CATAPRES) 0.1 mg tablet clonazePAM (KlonoPIN) 0.5 mg tablet CAPLYTA 42 mg capsule capsule busPIRone (BUSPAR) 30 mg tablet bukqdkm-raevezdqdfnpq-ietvmcbr (EXCEDRIN MIGRAINE) 250-250-65 mg per tablet IMPRESSIONS/PLAN 1. POTS (postural orthostatic tachycardia syndrome) - Ambulatory referral to Cardiology (Non[facility]) I reviewed her electrocardiograms revealing sinus rhythm. Her tilt-table study noted to be abnormal although there did not appear to be any significant bradycardia or hypotension and she had a syncopal event as she was being administered sublingual nitroglycerin. Neurology has a 5 day EEG planned next week. I would await those results. We will review her echocardiogram that has been ordered as well. I have encouraged her to use compression stockings on her legs as well as stay well hydrated with frequent small meals and snacks and adding salt for the hypotension. Follow-up will be arranged. TODAYS ORDERS No orders of the defined types were placed in this encounter. FOLLOW UP Return in about 2 months (around 10/10/2024). PCP: Tom Lemus Jr, DO Referring Physician: Leighton Staton MD [address] [place] [address] documented in this encounter [facility] 08-09-2024 Miscellaneous Notes Left message for patient to remind them to bring their most current medication list with them to their appointment. documented in this encounter [facility] 08-09-2024 Telephone encounter Note Left message for patient to remind them to bring their most current medication list with them to their appointment. [facility] 08-07-2024 Miscellaneous Notes Patient called stating that she has been having an ongoing migraine headache for the last few days. She was in the ER over the weekend and received a migraine cocktail that helped temporarily. Upon questioning, she also reports neck pain, back pain and body aches. She reports that she feels chilly but does not think she has fevers. I advised the patient that because of systemic symptoms and especially neck pain, she would need to be evaluated in person. Advised the patient to present to her nearest ER. Patient expressed understanding. Lidia Brewer MD PGY2 Neurology [facility] documented in this encounter [facility] 08-07-2024 Telephone encounter Note Patient called stating that she has been having an ongoing migraine headache for the last few days. She was in the ER over the weekend and received a migraine cocktail that helped temporarily. Upon questioning, she also reports neck pain, back pain and body aches. She reports that she feels chilly but does not think she has fevers. I advised the patient that because of systemic symptoms and especially neck pain, she would need to be evaluated in person. Advised the patient to present to her nearest ER. Patient expressed understanding. Lidia Brewer MD PGY2 Neurology [email or web address] Work Phone: 08-07-2024 Miscellaneous Notes Contract: 50A re Headache worsening Dr Staton Dr Osman rubio was Connected to Call documented in this encounter [facility] 08-07-2024 Telephone encounter Note Contract: 50A re Headache worsening Dr Staton [facility] 08-07-[address] Osman rubio was Connected to Call [facility] 08-04-2024 Miscellaneous Notes Patient called after hours to update that her migraine remains severe, has persisted since last weekend (6-7 days) without relieve despite home abortive medications. Advised patient that she should present to ED for further evaluation and management. Patient agreeable to the plan. Lindsey Rodriguez MD PGY-2 Neurology Resident documented in this encounter [facility] 08-04-2024 Telephone encounter Note Patient called after hours to update that her migraine remains severe, has persisted since last weekend (6-7 days) without relieve despite home abortive medications. Advised patient that she should present to ED for further evaluation and management. Patient agreeable to the plan. Lindsey Rodriguez MD PGY-2 Neurology Resident [facility] Work Phone: 08-04-2024 Miscellaneous Notes Contract: OC50A OC50 cari bauerara called in medication for migraines could not take the meds doctor told last night to take a pill form of a med cocktail Called resident connected christine Walls documented in this encounter [facility] 08-04-2024 Telephone encounter Note Contract: OC50A OC50 cari staton called in medication for migraines could not take the meds doctor told last night to take a pill form of a med cocktail Called resident connected christine Walls [facility] 08-03-2024 History of Present illness Narrative Received an after hours call from the patient evening of 08/03/24. The patient reports that she feels there are significant interactions with the naratriptan and her psychiatric medications/mood medications namely serotonin syndrome and she feels uncomfortable taking the naratriptan. Other options given to the patient were providing oral tramadol for headache but she reports that she has a bad reaction to hydrocodone containing medications namely that she hallucinates with them. She was then offered if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 about the importance of using compression stocking, standing up slowly and increasing salt and water intake. Will also give the patient referral to Cardiology. [facility] Work Phone: 07-04-2024 Telephone encounter Note Noted. [facility] 06-25-2024 Miscellaneous Notes Late entry - Patient was seen in office on 06/22/24 in resident clinic. Upon checkout, patient stated that she had faxed us FMLA paperwork that she needed completed that day. She stated that she spoke with someone on the phone who stated that we would fill out the paperwork with her on the date of her appointment. Upon checking patient's chart, handbook writer found blank paperwork that had been scanned in. Resident provider had left for the day. Attending physician helped handbook writer complete paperwork, granting patient 3 weeks off work to allow for the testing that was ordered. Loft Patternmaker faxed FMLA paperwork per patient's request. Confirmation received. Per previous encounter, patient called to inform us that she will need additional time off work as the testing ordered is scheduled from mid-late June. Loft Patternmaker called to ask if patient's employer will be sending additional paperwork, or if we will need to update that paperwork we already have completed. I believed we wrote a letter for 3 weeks off on Tuesday and I signed it. I believe the patient should have some rest for 3 weeks and watching for more recovery, after 2 weeks and if the patient continued to have these episodes with the same frequency we will reconsider extending her leave Patient [phone] stated that they will have to reach out to their employer and request needed paperwork. Patient stated that they were just touching base with provider's office to let them know that Received additional paperwork from [facility]. Scanned into patient's chart. [facility] Source additional forms completed and placed in Provider's folder for review and signature. documented in this encounter [facility] 06-25-2024 Telephone encounter Note Late entry - Patient was seen in office on 06/22/24 in resident clinic. Upon checkout, patient stated that she had faxed us [facility] paperwork that she needed completed that day. She stated that she spoke with someone on the phone who stated that we would fill out the paperwork with her on the date of her appointment. Upon checking patient's chart, handbook writer found blank paperwork that had been scanned in. Resident provider had left for the day. Attending physician helped handbook writer complete paperwork, granting patient 3 weeks off work to allow for the testing that was ordered. Loft [employer]maker faxed [facility] paperwork per patient's request. Confirmation received. [facility] 06-25-2024 Telephone encounter Note Per previous encounter, patient called to inform us that she will need additional time off work as the testing ordered is scheduled from mid-late June. Loft Patternmaker called to ask if patient's employer will be sending additional paperwork, or if we will need to update that paperwork we already have completed. [facility] 06-25-2024 Telephone encounter Note I believed we wrote a letter for 3 weeks off on Tuesday and I signed it. I believe the patient should have some rest for 3 weeks and watching for more recovery, after 2 weeks and if the patient continued to have these episodes with the same frequency we will reconsider extending her leave [facility] Work Phone: 06-25-2024 Telephone encounter Note Patient [phone] stated that they will have to reach out to their employer and request needed paperwork. Patient stated that they were just touching base with provider's office to let them know that [facility] 06-25-2024 Telephone encounter Note Received additional paperwork from [facility]. Scanned into patient's chart. [facility] 06-25-2024 Telephone encounter Note [facility] Source additional forms completed and placed in Provider's folder for review and signature. [facility] 06-23-2024 Miscellaneous Notes Patient called stating that she had a spell today lasting for around 45 minutes during which she was unresponsive but could hear everything. She states that during the episode she felt like her jaw tensed up. She also reports a pounding headache along with blurring of vision that started after the episode. I communicated to her that she needs to be evaluated at her nearest ED given concern for seizure. She expressed understanding. Lidia Brewer MD PGY2 Neurology [facility] documented in this encounter [facility] 06-23-2024 Telephone encounter Note Patient called stating that she had a spell today lasting for around 45 minutes during which she was unresponsive but could hear everything. She states that during the episode she felt like her jaw tensed up. She also reports a pounding headache along with blurring of vision that started after the episode. I communicated to her that she needs to be evaluated at her nearest ED given concern for seizure. She expressed understanding. Lidia Brewer MD PGY2 Neurology [facility] Work Phone: 06-23-2024 Miscellaneous Notes Contract: [id number] [phone] Mr Quijano re pt with seizure activity, now experiencing pulsating head pain Relayed info to Dr Brewer and transferred documented in this encounter [facility] 06-23-2024 Telephone encounter Note Contract: [id number] [phone] Mr Quijano re pt with seizure activity, now experiencing pulsating head pain Relayed info to Dr Brewer and transferred [facility] 06-22-2024 History of Present illness Narrative Images from the original note were not included. [address] [facility] [id number] Patient: Cari Quijano Date of : 1995 Encounter Date: 06/22/2024 History of Present Illness: The patient is a 29 y.o. female, a new patient, and is here for seizure-like episodes. Patient seen in the office today, accompanied by her . The patient is known to have bipolar disorder, ADHD, GERD, PTSD and history of migraine. Patient's history dates back to around December 2022 when she started having episodes of unresponsiveness, as reported these episodes are being preceded by sensation of brain fogginess, pressure at the back of her head, she is able to sit down prior to losing consciousness and then she will be unresponsive. Patient scribed that she will be able to hear voices and she will be aware of her surroundings, but unable to move or respond. These episodes will be followed by feeling tired, blurry vision, dizziness and nausea along with heaviness of the arms. As reported, these episodes lasting 30-90 minutes, they have been happening once per week, however recently they increased in frequency up to multiple times within 1 day. Patient was admitted to [facility] in mid May 2024 due to blurry vision and increasing frequency of these episodes, neuro workup including brain MRI and EEG were unremarkable, U tox was positive for amphetamine, patient was evaluated by Neurology and there was concern for PNES, patient was discharged with recommendations for outpatient evaluation and psychotherapy. According to the patient and her , these episodes are still increasing in frequency, which patient usually feels pressure at the back of her head before these spells, followed by dizziness, for which she usually has to sit down, subsequently she will become unresponsive for 15 minutes, to 90 minutes. Many of these episodes were witnessed by the , who described that the patient will be unresponsive with eyes closed, flaccid without stiffening or shaking, usually she will be aware of her surrounding, but she cannot talk or communicate. After these events, patient be lethargy, having blurry vision and sometimes double vision which can last for few days. Patient is also reporting bilateral hand tremors and memory and cognitive difficulties. She has history of psychosocial stressors, PTSD, nightmares and anxiety. She has been also diagnosed with bipolar disorder and ADHD Previous workup and ancillary testing: Brain MRI with and without contrast 06/15/2024: Normal study Echocardiogram August 2020: Unremarkable 12 hours EEG monitoring 06/15/2024: Normal EEG recording Allergies: Lamotrigine, Bee venom protein (honey bee), Hydrocodone, Lurasidone, Vicodin [hydrocodone-acetaminophen], Erythromycin, and Zithromax [azithromycin] Review of Relevant Patient Questionnaires: HIT 6: No data to display PHQ-9: 06/08/2024 10:08 AM 02/09/2024 2:26 PM 01/10/2024 3:53 PM 12/06/2023 8:37 AM 11/21/2023 4:32 PM 07/07/2023 10:50 AM 05/09/2023 4:08 PM PM AMB PHQ 9 Little interest or pleasure in doing things 0 0 0 0 0 1 0 Feeling down, depressed, or hopeless 0 0 0 0 0 0 0 Total Score 0 0 0 0 0 1 0 PHQ-15: No data to display GARY-7: No data to display PTSD: No data to display Lyles: No data to display JUDIE-10: No data to display Headache Questionairre Past Medical, Family, Surgical, and Social History Update: The following portions of the patient's history were reviewed and updated as appropriate: allergies, current medications, past family history, past medical history, past social history, past surgical history and problem list. 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 18 g 0 busPIRone (BUSPAR) 15 mg tablet Take 2 tablets (30 mg total) by mouth in the morning and 2 tablets (30 mg total) before bedtime. CAPLYTA 42 mg capsule capsule Take 1 capsule (42 mg total) by mouth in the morning. At night . clonazePAM (KlonoPIN) 0.5 mg tablet Take 1 tablet (0.5 mg total) by mouth 3 (three) times a day as needed (panic disorder). cloNIDine (CATAPRES) 0.1 mg tablet Take 2 tablets (0.2 mg total) by mouth in the evening. At night . fexofenadine (RADHA) 180 mg tablet Take 1 tablet (180 mg total) by mouth in the morning. FLUoxetine (PROzac) 20 mg capsule Take 2 capsules (40 mg total) by mouth in the morning. In morning . ibuprofen (MOTRIN) 800 mg tablet take 1 tablet by mouth every 8 hours if needed for pain lithium (LITHOBID) 300 mg CR tablet Take 2 tablets (600 mg total) by mouth in the morning and 2 tablets (600 mg total) before bedtime. omeprazole (PriLOSEC) 20 mg capsule Take 1 capsule (20 mg total) by mouth every morning before breakfast. VYVANSE 40 mg capsule Take 70 mg by mouth every morning. No current facility-administered medications for this visit. (All medications reviewed and updated by provider since last office visit or hospitalization) Tobacco History: Social History Tobacco Use Smoking Status Never Smokeless Tobacco Never (If patient a smoker, smoking cessation counseling offered) Social History: Social History Substance and Sexual Activity Alcohol Use Yes Comment: occasionally Review of Systems: Review of Systems Constitutional: Negative for chills, fatigue and fever. HENT: Negative for ear pain and sore throat. Eyes: Positive for visual disturbance. Negative for photophobia. Respiratory: Negative for chest tightness. Cardiovascular: Negative for chest pain. Gastrointestinal: Negative for abdominal pain. Genitourinary: Negative for dysuria. Musculoskeletal: Negative for back pain and neck pain. Neurological: Positive for dizziness, seizures and syncope. Negative for weakness. Psychiatric/Behavioral: Negative for confusion. Physical Exam: Vitals: Vitals: 06/22/24 1525 BP: 111/68 BP Site: Right Arm BP Postition: Sitting BP CUFF SIZE: M (9-13 inches) Pulse: 78 Weight: 70.3 kg (155 lb) Height: 165.1 cm (5' 5 ) Neurological Physical Exam: Neurologic: Mental status: Alert; oriented to time, place, person and situation. No aphasia. No dysarthria. Normal recent and remote memory. Normal attention span and concentration. Able to provide good history. Cranial nerves: II: pupils equal and reactive to light; visual cody full; III, IV, : extraocular movements intact; no ptosis. No nystagmus. V: facial sensation equal to touch in all 3 divisions bilaterally. No weakness of muscles of mastication. VII: face symmetric with normal eye closure and smile. VIII: hearing normal to rubbing fingers IX, X: palate elevates symmetrically; phonation normal. XI: Shoulder elevation symmetric and 5/5. Sternocleidomastoid muscle strength symmetric. XII: tongue midline with good movements. Motor: Normal bulk. No fasciculations. Normal muscle tone. Motor strength 5/5 in bilateral upper and bilateral lower extremities. No bradykinesia. No tremors. No other abnormal movements. Reflexes: DTRs 2/4 and symmetric bilaterally. No ankle clonus was noted. Plantar response is flexor bilaterally. Sensory examination: Sensation to light touch and pinprick is bilaterally symmetric and normal. Coordination: [id number] normal without dysmetria Gait and Station: Patient walks with narrow base and normal stride. Romberg's test negative Assessment and Plan: Cari Quijano is 29 years old female patient With history of PTSD, anxiety, ADHD and bipolar disorder, currently being evaluated for episodes of unresponsiveness, prolonged and can last up to 90 minutes, started in December 2022 and has been increasing in frequency. Recent workup at [facility] brain MRI with and without contrast along with 12 hour EEGs were unremarkable. Physical exam today unremarkable Impression: high clinical suspicion for nonepileptic seizures based on semiology and reassuring workup, possibility of POTS less likely, epileptic seizures are very unlikely Plan: Counseling and deviation about the likely diagnosis discussed extensively with the patient, all of her questions were answered. Given the high frequency of these episodes, with try to arrange for inpatient admission for long-term monitoring epilepsy for better characterization of these spells. Will try to obtain tilt-table study with EEG if possible. Patient to continue follow-up with psychiatry and psychotherapy. No indication to start antiseizure medications at this time. Follow-up after 4 months Diagnoses and all orders for this visit: Syncope, unspecified syncope type - Tilt table study; Future - Public Address Technician Monitoring for Epilepsy / LTME 5 Day; Future Recurrent episodes of unresponsiveness - [facility] [place] [facility] [place], [place] - Tilt table study; Future Nonepileptic episode ([facility]) Follow-up: 6 months Patient seen and examined in the presence of Dr. Curt Staton MD PGY 4 neurology resident Attending Attestation: I saw the patient. I participated and was physically present during the critical/nguyen portions of the service. I was directly involved in the management and treatment plan of the patient. I reviewed the resident's note. Additional Notes/Findings: none documented in this encounter [facility] 06-22-2024 Instructions Leighton Staton MD - 06/22/2024 3:30 PM EST Please note that we are not planning to start you on any medications at this time. Please call and schedule tilt table test and echocardiogram. Please make sure to call central scheduling to arrange for admission for EEG monitoring Please avoid driving, and avoid being on high risk situations for at least 6 months Follow up after 3-4 months documented in this encounter [facility] 06-19-2024 History of Present illness Narrative Received through faxes request for [facility] paperwork to be completed. Blank forms scanned into media and attached to this encounter. documented in this encounter [facility] 06-19-2024 Miscellaneous Notes ----- Message from Kadi Shaver MD sent at 06/15/2024 3:15 PM EST ----- Regarding: hospital follow up Hi can we please schedule this patient for follow up with the resident clinic in 4-6 weeks Please ask the following questions to the new patient that you are schedulin. IS THIS DUE TO AN ACCIDENT? -patient stated no 2. IS THIS WORKER'S COMP? PLEASE VERIFY IF THIS IS WORKERS COMP AND DOCUMENT (We do not accept any new workers comp cases) -no 3. WHAT INSURANCE? -[place] [employer] 4. HAVE YOU EVER BEEN SEEN BY A NEUROLOGIST BEFORE? IF YES, WHO AND WHEN? IS THIS A SECOND OPINION? -no 5. ANY CHANCE OF NOW OR BEFORE YOUR APPOINTMENT? -no 6. OFFERED GILMAR FOR SOONER APPOINTMENT? -resident clinic 7. PATIENT IS SCHEDULED ON/WITH: -08/[address] Luna documented in this encounter [facility] 06-19-2024 Telephone encounter Note ----- Message from Kadi Shaver MD sent at 06/15/2024 3:15 PM EST ----- Regarding: hospital follow up Hi can we please schedule this patient for follow up with the resident clinic in 4-6 weeks [facility] 06-19-2024 Telephone encounter Note Please ask the following questions to the new patient that you are schedulin. IS THIS DUE TO AN ACCIDENT? -patient stated no 2. IS THIS WORKER'S COMP? PLEASE VERIFY IF THIS IS WORKERS COMP AND DOCUMENT (We do not accept any new workers comp cases) -no 3. WHAT INSURANCE? -[employer] 4. HAVE YOU EVER BEEN SEEN BY A NEUROLOGIST BEFORE? IF YES, WHO AND WHEN? IS THIS A SECOND OPINION? -no 5. ANY CHANCE OF NOW OR BEFORE YOUR APPOINTMENT? -no 6. OFFERED GILMAR FOR SOONER APPOINTMENT? -resident clinic 7. PATIENT IS SCHEDULED ON/WITH: -08/[address] Luna [facility] 06-08-2024 History of Present illness Narrative IM PROGRESS NOTE Patient - Cari Quijano Age - 29 y.o. - 1995 ASSESSMENT & PLAN 1. Simple partial seizure (CMS-HCC) (Primary) -it is not entirely clear the underlying etiology of these episodes, but there is some indication of a possible simple partial seizure. -will proceed with an EEG, but patient was advised she may need to have an ambulatory EEG and Neurology consult, even if initial EEG is negative. - EEG; Future 2. Orthostatic hypotension -her symptoms do have description which is consistent with POTS,, and she does have orthostatic changes exam today -will check echocardiogram, and obtain tilt-table test -further recommendations following testing - Echo complete W/O contrast; Future - Tilt table study; Future 3. Abnormal EKG -initial EKG suggestive of anteroseptal infarct, but repeat EKG does not show these changes. A high sensitivity troponin was unremarkable. I have low index of suspicion for ACS. Subjective 29-year-old female presents for evaluation of unresponsive episodes. She reports episodes in which she can feel herself feeling weak and somewhat faint. She is able to set herself down. She subsequently will have an episode in which she is unable to speak or move, although she reports she is able to hear and know what is going on around her. She closes her eyes, and so does not know if she can see at this time. Her has witnessed these, and reports that he has to rub and shake her multiple times to get her to arouse from this non communicative state. These episodes will last 20-30 minutes, with the longest episode lasting 40 minutes. - these have been occurring for the past 4-5 weeks - she has between 1 and 4 these episodes a day - they are occurring more frequently and lasting longer - she has never had true syncope or totally lost consciousness with any of these episodes - she denies any bowel or bladder incontinence associated with these episodes - she did go to the ED in [place] earlier this week, and was told nothing was wrong. However an EKG was obtained, and the official reading indicated an abnormality, possibly anteroseptal infarct. -she subsequently went to the ED in [place], where a repeat EKG showed a Q-wave in V1, but otherwise was unremarkable. - she is seeing her psychiatrist routinely. She mentioned these episodes to psychiatric nurse practitioner, who did not think they were related to her mental health issues. However her medications were adjusted. - when these episodes are finished, the patient feels washed out , but is able to walk and talk and generally function without assistance A review of systems was negative except for the following: Psychiatric: has bipolar disorder. Currently under treatment Endocrine: patient is post hysterectomy, but does retain both ovaries Neurological: unresponsive episodes as above. Exam BP 100/60 (BP Site: Left Arm, BP Postition: Sitting) Pulse 93 Temp 37 C (98.6 F) (Tympanic) Ht 165.1 cm (5' 5 ) Wt 67.9 kg (149 lb 12.8 oz) LMP 01/09/2024 SpO2 99% BMI 24.93 kg/m Physical Exam Vitals reviewed. Exam conducted with a keeper helper present (). Constitutional: General: She is not in acute distress. Appearance: She is well-developed and normal weight. She is not toxic-appearing. HENT: Head: Normocephalic. Right Ear: Tympanic membrane, ear canal and external ear normal. Left Ear: Tympanic membrane, ear canal and external ear normal. Nose: Nose normal. Mouth/Throat: Mouth: Mucous membranes are moist. Eyes: General: No scleral icterus. Extraocular Movements: Extraocular movements intact. Neck: Vascular: No carotid bruit. Cardiovascular: Rate and Rhythm: Normal rate and regular rhythm. Heart sounds: No murmur heard. No gallop. Comments: See orthostatic blood pressure readings Pulmonary: Effort: Pulmonary effort is normal. Breath sounds: No wheezing or rales. Abdominal: Palpations: Abdomen is soft. Comments: No hepatomegaly. Musculoskeletal: Cervical back: Tenderness (Cervical paraspinal muscles bilaterally C4-C7 on the left) present. Right lower leg: No edema. Left lower leg: No edema. Lymphadenopathy: Cervical: No cervical adenopathy. Skin: General: Skin is warm and dry. Coloration: Skin is not jaundiced. Findings: No bruising. Neurological: Mental Status: She is alert and oriented to person, place, and time. Sensory: No sensory deficit. Motor: No weakness. Coordination: Coordination normal. Gait: Gait normal. Deep Tendon Reflexes: Reflexes are normal and symmetric. Reflexes normal. Psychiatric: Mood and Affect: Mood normal. Behavior: Behavior normal. Meds Current Outpatient Medications: albuterol (PROVENTIL HFA;VENTOLIN HFA) 90 mcg/actuation inhaler, Inhale 2 puffs every 4 (four) hours as needed for wheezing., Disp: 18 g, Rfl: 0 busPIRone (BUSPAR) 15 mg tablet, , Disp: , Rfl: CAPLYTA 42 mg capsule capsule, , Disp: , Rfl: clonazePAM (KlonoPIN) 0.5 mg tablet, , Disp: , Rfl: cloNIDine (CATAPRES) 0.1 mg tablet, TAKE 1 TABLET BY MOUTH EVERYDAY AT BEDTIME, Disp: , Rfl: fexofenadine (RADHA) 180 mg tablet, Take 1 tablet (180 mg total) by mouth in the morning., Disp: , Rfl: FLUoxetine (PROzac) 20 mg capsule, take 1 capsule by mouth every morning, Disp: , Rfl: ibuprofen (MOTRIN) 800 mg tablet, take 1 tablet by mouth every 8 hours if needed for pain, Disp: , Rfl: lithium (LITHOBID) 300 mg CR tablet, Take 1 tablet (300 mg total) by mouth in the morning and 1 tablet (300 mg total) before bedtime., Disp: , Rfl: omeprazole (PriLOSEC) 20 mg capsule, Take 1 capsule (20 mg total) by mouth every morning before breakfast., Disp: , Rfl: VYVANSE 40 mg capsule, Take 60 mg by mouth., Disp: , Rfl: Lab Results Admission on 06/06/2024, Discharged on 06/06/2024 Component Date Value Ref Range Status White Blood Cells 06/06/2024 10.3 4.0 - 11.0 X10E9/L Final RBC count 06/06/2024 4.12 3.80 - 5.20 X10E12/L Final Hemoglobin 06/06/2024 12.8 11.7 - 15.5 g/dL Final Hematocrit 06/06/2024 36.9 35 - 47 % Final MCV 06/06/2024 90 80 - 100 fL Final MCH 06/06/2024 31.0 27 - 34 pg Final MCHC 06/06/2024 34.7 32 - 36 g/dL Final RDW 06/06/2024 12.7 11.5 - 15.0 % Final Platelets 06/06/2024 350 150 - 450 X10E9/L Final MPV 06/06/2024 8.4 7 - 12 fL Final % neutrophils 06/06/2024 56.0 % Final % lymphocytes 06/06/2024 34.7 % Final % monocytes 06/06/2024 7.0 % Final % eosinophils 06/06/2024 1.4 % Final % Basophils 06/06/2024 0.9 % Final Neutrophils Absolute (A) 06/06/2024 5.8 1.5 - 6.6 X10E9/L Final Lymphocytes Absolute 06/06/2024 3.6 (H) 1.0 - 3.5 X10E9/L Final Monocytes Absolute 06/06/2024 0.7 0 - 0.9 X10E9/L Final Eosinophils Absolute 06/06/2024 0.1 0.0 - 0.4 X10E9/L Final Basophils Absolute 06/06/2024 0.1 0.0 - 0.2 X10E9/L Final Sodium 06/06/2024 135 134 - 146 mmol/L Final Potassium, Bld 06/06/2024 3.5 3.5 - 5.0 mmol/L Final Chloride 06/06/2024 102 98 - 109 mmol/L Final CO2 06/06/2024 27 22 - 32 mmol/L Final Anion gap 06/06/2024 6 5 - 15 mmol/L Final BUN 06/06/2024 12 5 - 23 mg/dL Final Creatinine 06/06/2024 0.77 0.40 - 1.00 mg/dL Final Glucose 06/06/2024 98 65 - 99 mg/dL Final Calcium 06/06/2024 8.9 8.5 - 10.5 mg/dL Final Total Protein 06/06/2024 6.9 6.0 - 8.0 g/dL Final Albumin 06/06/2024 4.3 3.2 - 5.3 g/dL Final Alkaline Phosphatase 06/06/2024 53 39 - 130 U/L Final AST 06/06/2024 16 0 - 41 U/L Final ALT 06/06/2024 12 0 - 31 U/L Final Total bilirubin 06/06/2024 0.9 0.3 - 1.2 mg/dL Final eGFR (CKD-EPI)non-race dependent 06/06/2024 >90 >59 ml/min/1.73sq.m Final D-dimer 06/06/2024 <150 <255 ng/mL DDU Final Troponin I, High Sensitivity 06/06/2024 <2 <16 ng/L Final Other Testing X-ray chest 1 view Result Date: 06/05/2024 EXAMINATION: ONE XRAY VIEW OF THE CHEST 06/05/2024 7:02 pm COMPARISON: 01/07/2024 HISTORY: ORDERING SYSTEM PROVIDED HISTORY: bruising to chest TECHNOLOGIST PROVIDED HISTORY: bruising to chest FINDINGS: The lungs are without acute focal process. There is no effusion or pneumothorax. The cardiomediastinal silhouette is stable. The osseous structures are stable. No acute process. Tom Lemus DO., [facility] Office: [phone] documented in this encounter [facility] 06-05-2024 Hospital Discharge instructions Ladan Thorne PA-C - 06/05/2024 8:07 PM EST Continue on your newly prescribed dosage of medications. Report to your primary care provider and psychiatrist in the next few days as scheduled. Your lithium level is pending. The following attachments cannot be sent through Care Everywhere.Personality Disorders (Tajik)documented in this encounter [facility] 06-05-2024 Miscellaneous Notes Patient called, she is having these spells where she becomes unresponsive, her vision goes out, she cannot move, she can her, and when she comes to she wakes up in a panic. It has been becoming more frequent Message noted. Obviously, she needs an appointment Well I know that, where can we get her squeezed in Comes in next week, wants to know what to do when the episodes happen Message noted. If I knew, then I would not have to see her. As of now, I do not know Precaution fitzgerald so she does not harm herself. Her usually has to rub her chest to wake her up Message noted. I still don't know documented in this encounter [facility] 06-05-2024 Telephone encounter Note Patient called, she is having these spells where she becomes unresponsive, her vision goes out, she cannot move, she can her, and when she comes to she wakes up in a panic. It has been becoming more frequent [facility] 06-05-2024 Telephone encounter Note Message noted. Obviously, she needs an appointment [facility] 06-05-2024 Telephone encounter Note Well I know that, where can we get her squeezed in [facility] 06-05-2024 Telephone encounter Note Comes in next week, wants to know what to do when the episodes happen [facility] 06-05-2024 Telephone encounter Note Message noted. If I knew, then I would not have to see her. As of now, I do not know [facility] 06-05-2024 Telephone encounter Note Precaution fitzgerald so she does not harm herself. Her usually has to rub her chest to wake her up [facility] 06-05-2024 Telephone encounter Note Message noted. I still don't know [facility] 03-27-2024 History of Present illness Narrative Reason for Appointment: Patient ID: Cari Gaitan is a 29 y.o. female who presents for Post-op Visit (Pt present today for 6 week post operative hysterectomy visit. Pt had a robotic hysterectomy on 02/15/2024.) Patient presents today for 6 week Hy Post Op Follow Up appointment. MEDICATIONS Current Outpatient Medications Medication Instructions baclofen (Lioresal) 10 MG tablet TAKE 1/2 TABLET BY MOUTH TWICE DAILY NEEDED FOR MUSCLE SPASMS busPIRone (BUSPAR) 15 mg, Oral, 2 times daily busPIRone (BUSPAR) 15 mg, Oral, 2 times daily Caplyta 42 mg, Oral, Daily clonazePAM (KLONOPIN) 0.5 mg, Oral, 2 times daily famotidine (PEPCID) 20 mg, Oral Fetzima 40 MG extended release capsule TAKE 1 CAPSULE (40 MG TOTAL) BY MOUTH IN THE MORNING fexofenadine (RADHA) 180 mg, Oral, Daily FLUoxetine (PROZAC) 20 mg, Oral, Every morning Meclizine HCl 25 mg, Oral, 3 times daily PRN naloxone (Narcan) 4 mg/0.1 mL nasal spray ADMINISTER 1 SPRAY INTO ONE NOSTRIL. CALL 911. REPEAT AFTER 2-3 MIN IF NO OR MINIMAL RESPONSE omeprazole (PriLOSEC) [address] capsule TAKE 1 CAPSULE BY MOUTH EVERY DAY 30 MINUTES BEFORE MORNING MEAL MV-Min-Fe Fum-FA-DHA ( 1 PO) Oral promethazine (Phenergan) 12.5 MG tablet TAKE 1 TABLET BY MOUTH EVERY 6 HOURS NEEDED FOR NAUSEA OR VOMITING. QUEtiapine (SEROquel) 25 MG tablet take 1 tablet by mouth once daily at bedtime if needed for insomnia Vyvanse 60 mg, Oral, Every morning ziprasidone (Geodon) 40 MG capsule TAKE 1 CAPSULE BY MOUTH ONCE A DAY AT BEDTIME UNTIL CAPLYTA IS APPROVED. ALLERGIES Allergies Allergen Reactions Lamotrigine Rash and Swelling Other Reaction(s): Unknown Other Reaction(s): Swelling, facial swelling Other Reaction(s): Unknown Other Reaction(s): Swelling, facial swelling Acetaminophen Other Reaction(s): Hallucinating Bee Venom Unknown Other reaction(s): Unknown Erythromycin Base Other Reaction(s): Rash Hydrocodone Other Reaction(s): Hallucinating, Hallucinations Other Reaction(s): Hallucinating Other Reaction(s): Hallucinating Other Reaction(s): Hallucinating, Hallucinations Other Reaction(s): Hallucinating Hydrocodone-Acetaminophen Hallucinations Lurasidone Other Reaction(s): Other (See Comments) Increased depression/SI Other Reaction(s): Depression Other Reaction(s): Depression, SUICIDAL Increased depression/SI Other Reaction(s): Other (See Comments) Increased depression/SI Other Reaction(s): Depression Other Reaction(s): Depression, SUICIDAL Azithromycin Rash and Swelling Other Reaction(s): Dermatitis, pain, Unknown When taken PO Other Reaction(s): Rash Erythromycin Itching and Rash Other Reaction(s): Dermatitis, Other (See Comments), pain, Unknown At injection site Administered d/t PPROM, discontinued infusion after rxn PROBLEMS Active Ambulatory Problems Diagnosis Date Noted Pelvic pain 07/04/2023 Pain of ovary 07/04/2023 Pre-op evaluation 07/04/2023 Resolved Ambulatory Problems Diagnosis Date Noted No Resolved Ambulatory Problems Past Medical History: Diagnosis Date Abdominal pain, LLQ Abnormal weight gain ADHD (attention deficit hyperactivity disorder) ([facility]) Amenorrhea Anxiety Asthma ([facility]) Bipolar disorder ([facility]) Endometriosis Family planning Major depressive disorder ([facility]) Missed menses Obesity Panic disorder ([facility]) PCOS (polycystic ovarian syndrome) Premenstrual syndrome HISTORY PAST MEDICAL HISTORY SOCIAL HISTORY Past Medical History: Diagnosis Date Abdominal pain, LLQ Abnormal weight gain ADHD (attention deficit hyperactivity disorder) (CMS/HCC) Amenorrhea Anxiety Asthma (CMS/HCC) Bipolar disorder (CMS/HCC) Endometriosis Family planning Major depressive disorder ([facility]/HCC) Missed menses Obesity Panic disorder ([facility]) PCOS (polycystic ovarian syndrome) Premenstrual syndrome Social History Tobacco Use Smoking status: Never Smokeless tobacco: Never Substance Use Topics Alcohol use: Yes Comment: occasional alcohol use; caffeine: 1-2 cups/day Drug use: Never FAMILY HISTORY Family History Problem Relation Name Age of Onset Hypertension Mother Hypothyroidism Mother Hyperlipidemia Father Depression Father Stroke Paternal Grandmother Cancer Paternal Grandmother Hiatal hernia Daughter SURGICAL HISTORY Past Surgical History: Procedure Laterality Date HIATAL HERNIA REPAIR 2003 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 HENT: Negative. Eyes: Negative. Respiratory: Negative. Cardiovascular: Negative. Gastrointestinal: Negative. Genitourinary: Negative. Musculoskeletal: Negative. Skin: Negative. Neurological: Negative. All other systems reviewed and are negative. Hematological: Negative. Endocrine: Negative. Allergic/Immunologic: Negative. OBJECTIVE Objective: Physical Exam Constitutional: Appearance: Normal appearance. She is normal weight. Genitourinary: Cervix is absent. Uterus is absent. HENT: Head: Normocephalic. Cardiovascular: Rate and Rhythm: Normal rate. Pulses: Normal pulses. Pulmonary: Effort: Pulmonary effort is normal. Breath sounds: Normal breath sounds. Abdominal: Palpations: Abdomen is soft. Musculoskeletal: General: Normal range of motion. Neurological: General: No focal deficit present. Mental Status: She is alert and oriented to person, place, and time. Psychiatric: Mood and Affect: Mood normal. Behavior: Behavior normal. Thought Content: Thought content normal. Judgment: Judgment normal. Vitals and nursing note reviewed. Vitals: Estimated body mass index is 24.79 kg/m as calculated from the following: Height as of 11/08/23: 5' 5 . Weight as of 02/21/24: 149 lb. BP: Patient's last menstrual period was 10/21/2023. ASSESSMENT & PLAN ICD-10-CM 1. Postoperative visit Z48.89 2. S/P hysterectomy Z90.710 Post Op Follow Up: Patient presents today for a 6 week postop check following a Da Peter assisted Laparoscopic Hysterectomy. Surgery execution and pathology results were discussed in great detail with the patient. Pelvic exam was performed and vaginal cuff was noted as healing well. Sutures were present and removed with ring forceps. Patient has been instructed to sustain from sexual intercourse for one more week. All other restrictions have otherwise been lifted. Follow Up: Patient is to return in 1 year for annual exam unless needed otherwise. Documented by Sarai Parisi MA on behalf of: WM Rosenbaum documented in this encounter [facility] 02-21-2024 History of Present illness Narrative Reason for Appointment: Patient ID: Cari Gaitan is a 28 y.o. female who presents for Post-op Visit (1 week post operative visit/concerns. Robotic hysterectomy/bilateral salpingectomy on 02/15/2024.) Patient presents today for 1 Week Post Op Follow Up appointment. MEDICATIONS Current Outpatient Medications Medication Instructions baclofen (Lioresal) 10 MG tablet TAKE 1/2 TABLET BY MOUTH TWICE DAILY NEEDED FOR MUSCLE SPASMS busPIRone (BUSPAR) 15 mg, Oral, 2 times daily busPIRone (BUSPAR) 15 mg, Oral, 2 times daily Caplyta 42 mg, Oral, Daily clonazePAM (KLONOPIN) 0.5 mg, Oral, 2 times daily famotidine (PEPCID) 20 mg, Oral Fetzima 40 MG extended release capsule TAKE 1 CAPSULE (40 MG TOTAL) BY MOUTH IN THE MORNING fexofenadine (RADHA) 180 mg, Oral, Daily FLUoxetine (PROZAC) 20 mg, Oral, Every morning Meclizine HCl 25 mg, Oral, 3 times daily PRN naloxone (Narcan) 4 mg/0.1 mL nasal spray ADMINISTER 1 SPRAY INTO ONE NOSTRIL. CALL 911. REPEAT AFTER 2-3 MIN IF NO OR MINIMAL RESPONSE omeprazole (PriLOSEC) [address] capsule TAKE 1 CAPSULE BY MOUTH EVERY DAY 30 MINUTES BEFORE MORNING MEAL MV-Min-Fe Fum-FA-DHA ( 1 PO) Oral promethazine (Phenergan) 12.5 MG tablet TAKE 1 TABLET BY MOUTH EVERY 6 HOURS NEEDED FOR NAUSEA OR VOMITING. QUEtiapine (SEROquel) 25 MG tablet take 1 tablet by mouth once daily at bedtime if needed for insomnia Vyvanse 60 mg, Oral, Every morning ziprasidone (Geodon) 40 MG capsule TAKE 1 CAPSULE BY MOUTH ONCE A DAY AT BEDTIME UNTIL CAPLYTA IS APPROVED. ALLERGIES Allergies Allergen Reactions Lamotrigine Rash and Swelling Other Reaction(s): Unknown Other Reaction(s): Swelling, facial swelling Other Reaction(s): Unknown Other Reaction(s): Swelling, facial swelling Acetaminophen Other Reaction(s): Hallucinating Bee Venom Unknown Other reaction(s): Unknown Erythromycin Base Other Reaction(s): Rash Hydrocodone Other Reaction(s): Hallucinating, Hallucinations Other Reaction(s): Hallucinating Other Reaction(s): Hallucinating Other Reaction(s): Hallucinating, Hallucinations Other Reaction(s): Hallucinating Hydrocodone-Acetaminophen Hallucinations Lurasidone Other Reaction(s): Other (See Comments) Increased depression/SI Other Reaction(s): Depression Other Reaction(s): Depression, SUICIDAL Increased depression/SI Other Reaction(s): Other (See Comments) Increased depression/SI Other Reaction(s): Depression Other Reaction(s): Depression, SUICIDAL Azithromycin Rash and Swelling Other Reaction(s): Dermatitis, pain, Unknown When taken PO Other Reaction(s): Rash Erythromycin Itching and Rash Other Reaction(s): Dermatitis, Other (See Comments), pain, Unknown At injection site Administered d/t PPROM, discontinued infusion after rxn PROBLEMS Active Ambulatory Problems Diagnosis Date Noted Pelvic pain 07/04/2023 Pain of ovary 07/04/2023 Pre-op evaluation 07/04/2023 Resolved Ambulatory Problems Diagnosis Date Noted No Resolved Ambulatory Problems Past Medical History: Diagnosis Date Abdominal pain, LLQ Abnormal weight gain ADHD (attention deficit hyperactivity disorder) ([facility]) Amenorrhea Anxiety Asthma ([facility]) Bipolar disorder ([facility]) Endometriosis Family planning Major depressive disorder ([facility]) Missed menses Obesity Panic disorder ([facility]) PCOS (polycystic ovarian syndrome) Premenstrual syndrome HISTORY PAST MEDICAL HISTORY SOCIAL HISTORY Past Medical History: Diagnosis Date Abdominal pain, LLQ Abnormal weight gain ADHD (attention deficit hyperactivity disorder) (CMS/HCC) Amenorrhea Anxiety Asthma (CMS/HCC) Bipolar disorder (CMS/HCC) Endometriosis Family planning Major depressive disorder (CMS/HCC) Missed menses Obesity Panic disorder ([facility]) PCOS (polycystic ovarian syndrome) Premenstrual syndrome Social History Tobacco Use Smoking status: Never Smokeless tobacco: Never Substance Use Topics Alcohol use: Yes Comment: occasional alcohol use; caffeine: 1-2 cups/day Drug use: Never FAMILY HISTORY Family History Problem Relation Name Age of Onset Hypertension Mother Hypothyroidism Mother Hyperlipidemia Father Depression Father Stroke Paternal Grandmother Cancer Paternal Grandmother Hiatal hernia Daughter SURGICAL HISTORY Past Surgical History: Procedure Laterality Date HIATAL HERNIA REPAIR 2003 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 HENT: Negative. Eyes: Negative. Respiratory: Negative. Cardiovascular: Negative. Gastrointestinal: Negative. Genitourinary: Negative. Musculoskeletal: Negative. Skin: Negative. Neurological: Negative. All other systems reviewed and are negative. Hematological: Negative. Endocrine: Negative. Allergic/Immunologic: Negative. OBJECTIVE Objective: Physical Exam Constitutional: Appearance: Normal appearance. She is normal weight. HENT: Head: Normocephalic. Cardiovascular: Rate and Rhythm: Normal rate. Pulses: Normal pulses. Pulmonary: Effort: Pulmonary effort is normal. Breath sounds: Normal breath sounds. Abdominal: Palpations: Abdomen is soft. Comments: Abdominal incisions healing well Musculoskeletal: General: Normal range of motion. Neurological: General: No focal deficit present. Mental Status: She is alert and oriented to person, place, and time. Psychiatric: Mood and Affect: Mood normal. Behavior: Behavior normal. Thought Content: Thought content normal. Judgment: Judgment normal. Vitals and nursing note reviewed. Vitals: Estimated body mass index is 24.79 kg/m as calculated from the following: Height as of 11/08/23: 5' 5 . Weight as of this encounter: 149 lb. BP: 110/62 Patient's last menstrual period was 10/21/2023. ASSESSMENT & PLAN ICD-10-CM 1. Postoperative visit Z48.89 2. S/P hysterectomy Z90.710 Post Op Follow Up: Patient presents today for a one week postop check after having a Da Peter assisted Laparoscopic Hysterectomy. Patient is doing well but has minor complaints of pain and dizziness. States she was seen in er last night for dizziness, given fluids and symptoms resolved this am. Also complains of right lower rib pain, reproducible with inhalation. Incisions has been noted as healing well with no signs and symptoms of infection. I explained to pt to continue to deep breath with pillow splint and continue with motrin. I believe symptoms due to costochondritis. Pt lab work for er visit reviewed, all wnl Ua in office today is neg Follow Up: Patient is to return in 5 weeks for 6 week post operative evaluation Documented by WM Rosenbaum on behalf of: WM Rosenbaum documented in this encounter [facility] 02-09-2024 History of Present illness Narrative IM PROGRESS NOTE Patient - Cari [facility]aitan Age - 28 [facility] 1995 [id number] ASSESSMENT & PLAN Patient presented to office today for Annual Adult Wellness Visit. Education was provided on healthy nutrition, including a diet rich in fruits and vegetables, minimizing simple carbohydrates, salt, and saturated fats. Encouraged regular cardiovascular exercise such as walking at least 30 minutes daily, 5 times per week - goal. Emphasized preventive health measures reduce health risks and promote healthy living. Goal for pt. is to achieve healthy BMI of 25 or under to reduce risk of developing diabetes and cardiovascular diseases. 1. Wellness examination -health maintenance activity pertinent to a 28-year-old female were discussed with the patient. Is up-to-date on all immunizations. No routine cancer screening needed at this time. -keep follow-up as planned with gynecology 2. Somatic dysfunction of thoracic region -persistent tenderness in the left rib. -I encouraged her to consider therapy for some work hardening exercises. She will ask about this at occupational health. If not available through occupational med, we can order it through regular insurance -consider using inversion table 3. Bipolar 1 disorder ([facility]) -current regimen includes Vyvanse, clonazepam, Caplyta, BuSpar, and fluoxetine. -keep close follow-up with psychiatrist Subjective 28-year-old female presents for yearly wellness visit. She does have some chronic issues which are stable or worsening and are requiring ongoing evaluation and treatment. -she has been having menometrorrhagia, and is scheduled for a hysterectomy without oophorectomy next week. Actually was in the emergency department last week because of bleeding. There was concern that there may be endometriosis as well. -her bipolar disorder has been stable, but has required ongoing adjustments to her medications by her psychiatrist. Recently was placed back on Vyvanse, in addition to her other medications. She feels things are stable , but does feel some anxiety and pressure because of the numerous medical as well social issues which are occurring. She has a court appointment in several weeks to try and regain custody of her child. -continues to have intermittent pain in her thoracic spine and left ribcage. 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 Is still using heat, baclofen, and ibuprofen for pain relief. She is on a 20 lb lifting restriction, and no pushing or pulling allowed. Has not had any new imaging since plain film of the back. A review of systems was negative except for the following: General: fatigue, sleep disturbance, and weight loss Psychiatric: anxiety and concentration difficulties Musculoskeletal: tenderness in the left thoracic region T6 -T12. Tenderness along the left 8th rib with palpation Exam BP 118/70 (BP Site: Left Arm, BP Postition: Sitting) Pulse 74 Temp 36.7 C (98.1 F) (Oral) Ht 165.1 cm (5' 5 ) Wt 65.6 kg (144 lb 9.6 oz) LMP 01/09/2024 SpO2 98% BMI 24.06 kg/m Physical Exam Vitals reviewed. Constitutional: General: She is not in acute distress. Appearance: She is well-developed. She is not toxic-appearing. HENT: Head: Normocephalic and atraumatic. Right Ear: External ear normal. Left Ear: External ear normal. Nose: Nose normal. Mouth/Throat: Mouth: Mucous membranes are moist. Eyes: General: No scleral icterus. Neck: Vascular: No carotid bruit. Cardiovascular: Rate and Rhythm: Normal rate and regular rhythm. Heart sounds: No murmur heard. No gallop. Pulmonary: Effort: Pulmonary effort is normal. Breath sounds: No wheezing or rales. Abdominal: Palpations: Abdomen is soft. Tenderness: There is no right CVA tenderness or left CVA tenderness. Musculoskeletal: General: Tenderness (Left 8th rib with palpation. Left thoracic spine T6-T12) present. Right lower leg: No edema. Left lower leg: No edema. Lymphadenopathy: Cervical: No cervical adenopathy. Skin: General: Skin is warm and dry. Coloration: Skin is not jaundiced. Findings: No bruising. Neurological: Mental Status: She is alert and oriented to person, place, and time. Motor: No weakness. Coordination: Coordination normal. Deep Tendon Reflexes: Reflexes are normal and symmetric. Psychiatric: Mood and Affect: Mood normal. Behavior: Behavior normal. Comments: Speech is mildly pressured Meds Current Outpatient Medications: acetaminophen-codeine (TYLENOL #3) 300-30 mg per tablet, Take 1 tablet by mouth every 4 (four) hours as needed for pain., Disp: , Rfl: baclofen (LIORESAL) 10 mg tablet, TAKE 1/2 TABLET BY MOUTH TWICE DAILY NEEDED FOR MUSCLE SPASMS, Disp: 20 tablet, Rfl: 1 busPIRone (BUSPAR) 15 mg tablet, , Disp: , Rfl: CAPLYTA 42 mg capsule capsule, , Disp: , Rfl: clonazePAM (KlonoPIN) 0.5 mg tablet, , Disp: , Rfl: fexofenadine (RADHA) 180 mg tablet, Take 1 tablet (180 mg total) by mouth in the morning., Disp: , Rfl: FLUoxetine (PROzac) 20 mg capsule, take 1 capsule by mouth every morning, Disp: , Rfl: ibuprofen (MOTRIN) 800 mg tablet, take 1 tablet by mouth every 8 hours if needed for pain, Disp: , Rfl: levonorgestreL (MIRENA) 21 mcg/24 hours (8 yrs) 52 mg IUD, by intrauterine route daily., Disp: , Rfl: meclizine (ANTIVERT) 25 mg tablet, Chew 1 tablet (25 mg total) and swallow 3 (three) times a day as needed for dizziness., Disp: 30 tablet, Rfl: 0 megestroL (MEGACE) 20 mg chemo tablet, Take 1 tablet by mouth daily, Disp: , Rfl: omeprazole (PriLOSEC) 20 mg capsule, Take 1 capsule (20 mg total) by mouth every morning before breakfast., Disp: , Rfl: VYVANSE 40 mg capsule, Take 60 mg by mouth., Disp: , Rfl: promethazine (PHENERGAN) 12.5 mg suppository, Insert 1 suppository (12.5 mg total) into the rectum every 6 (six) hours as needed for nausea or vomiting. (Patient not taking: Reported on 02/09/2024), Disp: 12 each, Rfl: 0 Lab Results Admission on 01/23/2024, Discharged on 01/23/2024 Component Date Value Ref Range Status White Blood Cells 01/23/2024 7.0 4.0 - 11.0 X10E9/L Final RBC count 01/23/2024 4.31 3.80 - 5.20 X10E12/L Final Hemoglobin 01/23/2024 13.1 11.7 - 15.5 g/dL Final Hematocrit 01/23/2024 38.9 35 - 47 % Final MCV 01/23/2024 90 80 - 100 fL Final MCH 01/23/2024 30.3 27 - 34 pg Final MCHC 01/23/2024 33.6 32 - 36 g/dL Final RDW 01/23/2024 13.2 11.5 - 15.0 % Final Platelets 01/23/2024 342 150 - 450 X10E9/L Final MPV 01/23/2024 8.5 7 - 12 fL Final % neutrophils 01/23/2024 54.1 % Final % lymphocytes 01/23/2024 34.9 % Final % monocytes 01/23/2024 9.3 % Final % eosinophils 01/23/2024 0.9 % Final % Basophils 01/23/2024 0.8 % Final Neutrophils Absolute (A) 01/23/2024 3.8 1.5 - 6.6 X10E9/L Final Lymphocytes Absolute 01/23/2024 2.4 1.0 - 3.5 X10E9/L Final Monocytes Absolute 01/23/2024 0.6 0 - 0.9 X10E9/L Final Eosinophils Absolute 01/23/2024 0.1 0.0 - 0.4 X10E9/L Final Basophils Absolute 01/23/2024 0.1 0.0 - 0.2 X10E9/L Final Sodium 01/23/2024 140 134 - 146 mmol/L Final Potassium, Bld 01/23/2024 3.8 3.5 - 5.0 mmol/L Final Chloride 01/23/2024 108 98 - 109 mmol/L Final CO2 01/23/2024 25 22 - 32 mmol/L Final Anion gap 01/23/2024 7 5 - 15 mmol/L Final BUN 01/23/2024 12 5 - 23 mg/dL Final Creatinine 01/23/2024 0.80 0.40 - 1.00 mg/dL Final Glucose 01/23/2024 100 (H) 65 - 99 mg/dL Final Calcium 01/23/2024 8.5 8.5 - 10.5 mg/dL Final eGFR (CKD-EPI)non-race dependent 01/23/2024 >90 >59 ml/min/1.73sq.m Final Alkaline phosphatase 01/23/2024 70 39 - 130 U/L Final AST 01/23/2024 15 0 - 41 U/L Final ALT 01/23/2024 15 0 - 31 U/L Final Total Bilirubin 01/23/2024 0.3 0.3 - 1.2 mg/dL Final Bilirubin, direct 01/23/2024 <0.1 0.0 - 0.4 mg/dL Final Albumin 01/23/2024 4.1 3.2 - 5.3 g/dL Final Total Protein 01/23/2024 7.2 6.0 - 8.0 g/dL Final Lipase 01/23/2024 40 17 - 40 U/L Final Specific gravity NADYA 01/23/2024 1.025 1.003 - 1.035 Final Leukocyte esterase NADYA 01/23/2024 Negative Negative^Negative Final Nitrite NADYA 01/23/2024 Negative Negative^Negative Final Ph 01/23/2024 7.0 5.0 - 8.5 Final Protein NADYA 01/23/2024 Negative Negative^Negative mg/dL Final Urine glucose NADYA 01/23/2024 Negative Negative^Negative mg/dL Final Ketones NADYA 01/23/2024 Negative Negative^Negative mg/dL Final Urobilinogen NADYA 01/23/2024 0.2 <1.1 eu/dL Final Bilirubin NADYA 01/23/2024 Negative Negative^Negative Final Hemoglobin NADYA 01/23/2024 Negative Negative^Negative Final Nursing urine 01/23/2024 Negative Negative^Negative Final Hospital Outpatient Visit on 01/10/2024 Component Date Value Ref Range Status Culture 01/10/2024 >100,000 ORGANISMS/mL ESCHERICHIA COLI (A) Final Clinical Support on 01/10/2024 Component Date Value Ref Range Status External Poct Urine Color 01/10/2024 brown Final External Poct Urine Appearance 01/10/2024 cloudy Final External Poct Urine Glucose 01/10/2024 Negative Final External Poct Urine Bilirubin 01/10/2024 Negative Final External Poct Urine Ketones 01/10/2024 Negative Final External Poct Urine Specific Gravi* 01/10/2024 1.020 Final External Poct Urine Blood 01/10/2024 Large Final External Poct Urine Ph 01/10/2024 8.5 Final External Poct Urine Protein 01/10/2024 3+ Final External Poct Urine Urobilinogen 01/10/2024 1.0 Final External Poct Urine Nitrite 01/10/2024 Negative Final External Poct Urine Leukocyte Marcella* 01/10/2024 Moderate Final Other Testing X-ray chest 1 view Result Date: 01/07/2024 EXAMINATION: ONE XRAY VIEW OF THE CHEST 01/07/2024 10:00 pm COMPARISON: None. HISTORY: ORDERING SYSTEM PROVIDED HISTORY: h/o asthma TECHNOLOGIST PROVIDED HISTORY: h/o asthma FINDINGS: Lungs are clear. There is no pleural effusion or pneumothorax. Heart is normal in size. Pulmonary vascular markings are normal. No acute osseous abnormalities are seen. No acute cardiopulmonary process. X-ray chest 2 views Result Date: 11/19/2023 XR CHEST 2 VWS HISTORY: Cough, chest [...] Prem Martinez MD on 11/19/2023 5:27 PM X-ray chest 2 views Result Date: 11/17/2023 EXAMINATION: TWO XRAY VIEWS OF THE CHEST 11/17/2023 9:03 pm COMPARISON: None. HISTORY: ORDERING SYSTEM PROVIDED HISTORY: Persistent cough TECHNOLOGIST PROVIDED HISTORY: Persistent cough FINDINGS: Cardiac and mediastinal contours are within normal limits. No focal airspace consolidation. No pleural effusion or pneumothorax. No acute osseous abnormality. No acute cardiopulmonary disease. Tom Lemus DO., [facility] Office: [phone] documented in this encounter [facility] 01-24-2024 Miscellaneous Notes Patient called, she ended up going to the ER and got put on workers comp she seen [employer] yesterday. They have her on a bunch of restrictions but going back to work tomorrow. Do you still want to see her on with it being workers comp Message noted. I can see her, but she needs to know it will be billed through insurance, not workers comp. It is her choice Patient will wait until january appointment documented in this encounter [facility] 01-24-2024 Telephone encounter Note Patient called, she ended up going to the ER and got put on workers comp she seen [employer] yesterday. They have her on a bunch of restrictions but going back to work tomorrow. Do you still want to see her on with it being workers comp [facility] 01-24-2024 Telephone encounter Note Message noted. I can see her, but she needs to know it will be billed through insurance, not workers comp. It is her choice [facility] 01-24-2024 Telephone encounter Note Patient will wait until january appointment [facility] 01-16-2024 History of Present illness Narrative Reason for Appointment: Patient ID: Cari Gaitan is a 28 y.o. female who presents for Menorrhagia, Pre-op Visit, and embx Patient presents today for Pre Op/Endometrial Biopsy appointment. Patient is scheduled to undergo Da Peter assisted Laparoscopic Hysterectomy, possible exploratory laparotomy, possible BSO, possible cystoscopy and IUD Removal on 02/15/[address] Valenzuela at [facility]. MEDICATIONS Current Outpatient Medications Medication Instructions amphetamine-dextroamphetamine (Adderall) 30 MG tablet 20 mg, Oral, 2 times daily amphetamine-dextroamphetamine XR (Adderall XR) 20 MG 24 hr capsule 20 mg, Oral, Daily baclofen (Lioresal) 10 MG tablet TAKE 1/2 TABLET BY MOUTH TWICE DAILY NEEDED FOR MUSCLE SPASMS busPIRone (BUSPAR) 15 mg, Oral, 2 times daily busPIRone (BUSPAR) 15 mg, Oral, 2 times daily Caplyta 42 mg, Oral, Daily clonazePAM (KLONOPIN) 0.5 mg, Oral, 2 times daily famotidine (PEPCID) 20 mg, Oral Fetzima 40 MG extended release capsule TAKE 1 CAPSULE (40 MG TOTAL) BY MOUTH IN THE MORNING fexofenadine (RADHA) 180 mg, Oral, Daily FLUoxetine (PROZAC) 20 mg, Oral, Every morning Meclizine HCl 25 mg, Oral, 3 times daily PRN naloxone (Narcan) 4 mg/0.1 mL nasal spray ADMINISTER 1 SPRAY INTO ONE NOSTRIL. CALL 911. REPEAT AFTER 2-3 MIN IF NO OR MINIMAL RESPONSE omeprazole (PriLOSEC) [address] capsule TAKE 1 CAPSULE BY MOUTH EVERY DAY 30 MINUTES BEFORE MORNING MEAL MV-Min-Fe Fum-FA-DHA ( 1 PO) Oral promethazine (Phenergan) 12.5 MG tablet TAKE 1 TABLET BY MOUTH EVERY 6 HOURS NEEDED FOR NAUSEA OR VOMITING. QUEtiapine (SEROquel) 25 MG tablet take 1 tablet by mouth once daily at bedtime if needed for insomnia Vyvanse 40 mg, Oral, Every morning ziprasidone (Geodon) 40 MG capsule TAKE 1 CAPSULE BY MOUTH ONCE A DAY AT BEDTIME UNTIL CAPLYTA IS APPROVED. ALLERGIES Allergies Allergen Reactions Lamotrigine Rash and Swelling Other Reaction(s): Unknown Other Reaction(s): Swelling, facial swelling Acetaminophen Other Reaction(s): Hallucinating Bee Venom Unknown Other reaction(s): Unknown Erythromycin Base Other Reaction(s): Rash Hydrocodone Other Reaction(s): Hallucinating, Hallucinations Other Reaction(s): Hallucinating Hydrocodone-Acetaminophen Hallucinations Lurasidone Other Reaction(s): Other (See Comments) Increased depression/SI Other Reaction(s): Depression Other Reaction(s): Depression, SUICIDAL Azithromycin Rash and Swelling Other Reaction(s): Dermatitis, pain, Unknown When taken PO Other Reaction(s): Rash Erythromycin Itching and Rash Other Reaction(s): Dermatitis, Other (See Comments), pain, Unknown At injection site Administered d/t PPROM, discontinued infusion after rxn PROBLEMS Active Ambulatory Problems Diagnosis Date Noted Pelvic pain 07/04/2023 Pain of ovary 07/04/2023 Pre-op evaluation 07/04/2023 Resolved Ambulatory Problems Diagnosis Date Noted No Resolved Ambulatory Problems Past Medical History: Diagnosis Date Abdominal pain, LLQ Abnormal weight gain ADHD (attention deficit hyperactivity disorder) (CMS/HCC) Amenorrhea Anxiety Asthma (CMS/HCC) Bipolar disorder (CMS/HCC) Endometriosis Family planning Major depressive disorder (CMS/HCC) Missed menses Obesity Panic disorder (CMS/HCC) PCOS (polycystic ovarian syndrome) Premenstrual syndrome HISTORY PAST MEDICAL HISTORY SOCIAL HISTORY Past Medical History: Diagnosis Date Abdominal pain, LLQ Abnormal weight gain ADHD (attention deficit hyperactivity disorder) (CMS/HCC) Amenorrhea Anxiety Asthma (CMS/HCC) Bipolar disorder (CMS/HCC) Endometriosis Family planning Major depressive disorder (CMS/HCC) Missed menses Obesity Panic disorder (CMS/HCC) PCOS (polycystic ovarian syndrome) Premenstrual syndrome Social History Tobacco Use Smoking status: Never Smokeless tobacco: Never Substance Use Topics Alcohol use: Yes Comment: occasional alcohol use; caffeine: 1-2 cups/day Drug use: Never FAMILY HISTORY Family History Problem Relation Name Age of Onset Hypertension Mother Hypothyroidism Mother Hyperlipidemia Father Depression Father Stroke Paternal Grandmother Cancer Paternal Grandmother Hiatal hernia Daughter SURGICAL HISTORY Past Surgical History: Procedure Laterality Date HIATAL HERNIA REPAIR 2003 LAPAROSCOPY DIAGNOSTIC / BIOPSY / ASPIRATION / LYSIS [employer] [] LAPAROSCOPY DIAGNOSTIC / BIOPSY / ASPIRATION / LYSIS 05/2021 left ovarian cystectomy PAP SMEAR 04/28/2021 negative REVIEW OF SYSTEMS Review of Systems: Review of Systems Constitutional: Negative. HENT: Negative. Eyes: Negative. Respiratory: Negative. Cardiovascular: Negative. Gastrointestinal: Negative. Genitourinary: Positive for dyspareunia, menstrual problem and pelvic pain. Musculoskeletal: Negative. Skin: Negative. Neurological: Negative. All other systems reviewed and are negative. Hematological: Negative. Endocrine: Negative. Allergic/Immunologic: Negative. OBJECTIVE Objective: Physical Exam Constitutional: Appearance: Normal appearance. She is well-developed. Genitourinary: Vulva normal. Cardiovascular: Rate and Rhythm: Normal rate and regular rhythm. Pulmonary: Effort: Pulmonary effort is normal. Breath sounds: Normal breath sounds. Abdominal: General: Bowel sounds are normal. There is no distension. Palpations: Abdomen is soft. Tenderness: There is no abdominal tenderness. There is no guarding or rebound. Musculoskeletal: General: No swelling. Normal range of motion. Right lower leg: No edema. Left lower leg: No edema. Neurological: Mental Status: She is alert and oriented to person, place, and time. Skin: General: Skin is warm and dry. Psychiatric: Mood and Affect: Mood normal. Behavior: Behavior normal. Vitals and nursing note reviewed. Exam conducted with a keeper helper present. Vitals: Estimated body mass index is 23.96 kg/m as calculated from the following: Height as of 11/08/23: 5' 5 . Weight as of 11/08/23: 144 lb. BP: No LMP recorded. ASSESSMENT & PLAN ICD-10-CM 1. Pre-op examination Z01.818 2. Menorrhagia with regular cycle N92.0 3. Pelvic pain in female R10.2 4. Dyspareunia in female N94.10 5. Dysmenorrhea N94.6 6. Endometriosis N80.9 EMBX: Patient was placed in dorsal lithotomy position with feet in stirrups. A sterile speculum was placed into the vagina and the cervix was visualized. The cervix was grasped with a single tooth tenaculum. The endometrial pipette was placed through the cervix into the uterus, endometrial curettage was performed and sampling was obtained, endometrial curettings were placed in formalin, and single tooth tenaculum was removed. Excellent hemostasis was assured. All instruments were removed from vagina. Pre Op: Patient is doing well but has complaints of pelvic pain and bleeding. I have discussed conservative management vs. surgical management with the patient in detail and patient desires surgical management at this time. Patient will undergo Da Peter assisted Laparoscopic Hysterectomy, possible exploratory laparotomy, possible BSO, possible cystoscopy and IUD Removal on 02/15/2024. Surgical consents were signed, mmc was reviewed, and patient is to proceed to [facility] OR. Follow Up: Patient is to follow up at 1 & 6 weeks post operative to assess proper healing and recovery from procedure. Documented by Chyna Floyd LPN on behalf of: Ron Valenzuela DO documented in this encounter [facility] 01-11-2024 Miscellaneous Notes Patient called and she is having really bad body aches, chills, genuinely feeling worse all together, no fever. Pain all together is about an 8, she has not slept, she's taken two doses of her UTI meds. Please advise Message noted. She needs to go the the ED - this could be her kidney stones again Patient notified, she has her child right now. She just picked up the prednisone she is going to start that if the pain continues or gets worse she will go documented in this encounter [facility] 01-11-2024 Telephone encounter Note Patient called and she is having really bad body aches, chills, genuinely feeling worse all together, no fever. Pain all together is about an 8, she has not slept, she's taken two doses of her UTI meds. Please advise [facility] 01-11-2024 Telephone encounter Note Message noted. She needs to go the the ED - this could be her kidney stones again [facility] 01-11-2024 Telephone encounter Note Patient notified, she has her child right now. She just picked up the prednisone she is going to start that if the pain continues or gets worse she will go [facility] 01-10-2024 History of Present illness Narrative Images from the original note were not included. [address] [place] [id number] SUBJECTIVE: Patient ID: Cari Gaitan is a 28 y.o. female. Chief Complaint Patient presents with Urinary Tract Infection Presents for symptoms of UTI. States symptoms started last night. She urine dipped her urine at work today which revealed possible UTI. Urine is described as bloody with small clots. She states she has been referred in the past to Dr. Young for the same. Urinary Tract Infection This is a new problem. The current episode started yesterday. The problem occurs every urination. The problem has been gradually worsening. The quality of the pain is described as aching and burning. The pain is moderate. There has been no fever. Associated symptoms include frequency, hematuria, hesitancy and urgency. Pertinent negatives include no chills. She has tried increased fluids for the symptoms. The treatment provided no relief. Her past medical history is significant for recurrent UTIs. The following portions of the patient's history were reviewed and updated as appropriate: allergies, current medications, past family history, past medical history, past social history, past surgical history and problem list. Past Surgical History: Procedure Laterality Date ESOPHAGOGASTRODUODENOSCOPY HERNIA REPAIR 2003 LAPAROSCOPY with ovarian cystectomy in 2021 Past Medical History: Diagnosis Date ADHD (attention deficit hyperactivity disorder) Anxiety Asthma Bipolar 1 disorder (CMS-HCC) Conversion disorder 01/07/2024 Depression Endometriosis Migraines Panic disorder Immunization History Administered Date(s) Administered COVID-19, mRNA, LNP-S, PF, 30mcg/0.3mL Dose 02/08/2021, 02/28/2021 DTaP 11/11/2015 DTaP, Unspecified 1997, 1997, 1997, 03/27/1998, 10/17/2002 Hep B / HIB 1997 Hep B, Adolescent or Pediatric 1997, 1997 Hep B, Unspecified 1997, 12/17/2015 Hepatitis B 11/26/2015, 12/17/2015, 12/29/2015 HiB 1997, 1997, 1997, 03/27/1998, 05/17/1998 Hib (HbOC) 1997, 03/27/1998 IPV 05/17/1998 Influenza (IM) Preservative Free 01/27/2016 Influenza, Injectable, quadrivalent (PF) 04/28/2021 Influenza, Unspecified 01/27/2016, 05/02/2018, 04/28/2021 MMR 03/27/1998, 10/17/2002 OPV 1997, 1997, 1997 Polio, Unspecified 10/17/2002 Rho (D) Immune Globulin 09/17/2022, 09/23/2022 Tdap 1997, 1997, 1997, 1997, 03/27/1998, 10/17/2002, 01/08/2014, 11/11/2015, 09/17/2022 Varicella 01/08/2014 REVIEW OF SYSTEMS: Review of Systems Constitutional: Negative for chills and fever. HENT: Negative. Eyes: Negative for visual disturbance. Respiratory: Negative for chest tightness and shortness of breath. Cardiovascular: Negative for chest pain and palpitations. Gastrointestinal: Negative. Endocrine: Negative. Genitourinary: Positive for frequency, hematuria, hesitancy and urgency. Negative for menstrual problem and pelvic pain. Musculoskeletal: Negative. Allergic/Immunologic: Negative. Neurological: Negative for syncope and facial asymmetry. Hematological: Does not bruise/bleed easily. Psychiatric/Behavioral: Negative. PHYSICAL EXAMINATION: Vitals: 01/10/24 1541 BP: 112/62 BP Site: Left Arm BP Postition: Sitting Pulse: 102 Resp: 20 Temp: 36.9 C (98.4 F) TempSrc: Oral SpO2: 98% Weight: 67 kg (147 lb 9.6 oz) Height: 165.1 cm (5' 5 ) Patient noted to have elevated BMI and the following intervention(s) were applied: encouragement to exercise. Physical Exam Vitals and nursing note reviewed. Constitutional: General: She is not in acute distress. Appearance: She is well-developed. She is not diaphoretic. HENT: Head: Normocephalic and atraumatic. Right Ear: Tympanic membrane and external ear normal. Left Ear: Tympanic membrane and external ear normal. Nose: Nose normal. Mouth/Throat: Mouth: Mucous membranes are moist. Pharynx: No oropharyngeal exudate. Eyes: General: Right eye: No discharge. Left eye: No discharge. Conjunctiva/sclera: Conjunctivae normal. Pupils: Pupils are equal, round, and reactive to light. Neck: Thyroid: No thyromegaly. Vascular: No JVD. Cardiovascular: Rate and Rhythm: Normal rate and regular rhythm. Heart sounds: Normal heart sounds. No murmur heard. No friction rub. No gallop. Pulmonary: Effort: Pulmonary effort is normal. Breath sounds: Normal breath sounds. Abdominal: General: Bowel sounds are normal. There is no distension. Palpations: Abdomen is soft. There is no mass. Tenderness: There is no abdominal tenderness. Musculoskeletal: General: Normal range of motion. Cervical back: Normal range of motion and neck supple. Lymphadenopathy: Cervical: No cervical adenopathy. Skin: General: Skin is warm and dry. Neurological: Mental Status: She is alert and oriented to person, place, and time. Deep Tendon Reflexes: Reflexes are normal and symmetric. Psychiatric: Mood and Affect: Mood normal. Behavior: Behavior normal. Thought Content: Thought content normal. Judgment: Judgment normal. ASSESSMENT/PLAN: Cari was seen today for urinary tract infection. Diagnoses and all orders for this visit: Dysuria - POCT urinalysis dipstick only Acute cystitis with hematuria - Urine culture (clean catch); Future - sulfamethoxazole-trimethoprim (BACTRIM DS) 800-160 mg per tablet; Take 1 tablet by mouth in the morning and 1 tablet before bedtime. Do all this for 10 days. Take with food. Urine dip reveals - Moderate leukocyte esterase, +3 protein, large blood Start Bactrim DS as directed. Increase fluids Send urine for culture. ALL QUESTIONS ANSWERED Total time spent was 25 minutes: Preparing to see the patient (e.g., review of tests) Obtaining and/or reviewing separately obtained history Performing a medically appropriate examination and/or evaluation Counseling and educating the patient/family/caregiver Ordering medications, tests, or procedures Follow-up: As directed Sooner if symptoms do not resolve BAKARI Handy 01/10/24 1611 documented in this encounter [facility] 01-10-2024 Miscellaneous Notes Patient is having a flare up of asthma and the albuterol is not helping can you please send something different in please documented in this encounter [facility] 01-10-2024 Telephone encounter Note Patient is having a flare up of asthma and the albuterol is not helping can you please send something different in please [facility] 01-08-2024 Hospital Discharge instructions Courtney Hernandez MD - 01/08/2024 2:26 AM EDT Continue current medications as prescribed. Please follow-up with your primary care provider within 1 week for recheck. Please return immediately for any acute concerns The following attachments cannot be sent through Care Everywhere.Stress: General Info (Tajik)documented in this encounter [facility] 12-27-2023 Miscellaneous Notes ----- Message from Dr. Tom Lemus DO sent at 07/07/2023 4:01 PM EST ----- Abdominal recheck Sent mychart msg LM on VM LM on Vm documented in this encounter [facility] 12-27-2023 Telephone encounter Note ----- Message from Dr. Tom Lemus DO sent at 07/07/2023 4:01 PM EST ----- Abdominal recheck [facility] 12-27-2023 Telephone encounter Note Sent mychart msg [facility] 12-27-2023 Telephone encounter Note LM on VM [facility] 12-27-2023 Telephone encounter Note LM on Vm [facility] 11-23-2023 Miscellaneous Notes Patient called and stated that she needs her excuse for through this week and RTW on 11/27/23 Message noted. Letter is written and in her chart. notified documented in this encounter [facility] 11-23-2023 Telephone encounter Note Patient called and stated that she needs her excuse for through this week and RTW on 11/27/23 [facility] 11-23-2023 Telephone encounter Note Message noted. Letter is written and in her chart. [facility] 11-23-2023 Telephone encounter Note notified [facility] 11-21-2023 History of Present illness Narrative IM PROGRESS NOTE Patient - Cari Gaitan Age - 28 [facility] 1995 [id number] & PLAN ED reports from the last 14 days were reviewed and discussed with the patient. In summary: 1. Benign paroxysmal positional vertigo of left ear -I suspect this is the trigger for most of her symptoms. -has positive Hallpike, and the off-balance and vertiginous symptoms . -currently on Radha, may continue this. -add prednisone burst x5 days -add meclizine 25 mg t.i.d. as needed -consider trial of Chris maneuvers at PT if not improving -I did offer the patient off work the rest of this week, but she wants to see if she can return. - predniSONE (DELTASONE) 20 mg tablet; Take 1 tablet (20 mg total) by mouth in the morning for 5 days. Dispense: 5 tablet; Refill: 0 - meclizine (ANTIVERT) 25 mg tablet; Chew 1 tablet (25 mg total) and swallow 3 (three) times a day as needed for dizziness. Dispense: 30 tablet; Refill: 0 2. Somatic dysfunction of cervical region -patient given OMT via muscle energy and strain counter strain technique to the entire cervical spine with good results. -add baclofen 5-10 mg q.h.s. to help asleep -heat as needed to the area - baclofen (LIORESAL) 10 mg tablet; Take 0.5 tablets (5 mg total) by mouth 2 (two) times a day as needed for muscle spasms. Dispense: 20 tablet; Refill: 0 3. Somatic dysfunction of thoracic region -patient given OMT via strain counter strain technique to the left rib 9 and 10 anteriorly. Good results with nearly complete resolution of the pain -baclofen 5-10 mg daily in the evening as needed -heat to the area as needed - baclofen (LIORESAL) 10 mg tablet; Take 0.5 tablets (5 mg total) by mouth 2 (two) times a day as needed for muscle spasms. Dispense: 20 tablet; Refill: 0 4. Bipolar 2 disorder (CMS-HCC) -currently stable -continue current regimen and follow-up with Psychiatry Subjective 28-year-old female presents for follow-up for multiple ED visits. 1. Started with episode of abdominal and pelvic pain on 11/07/23, was seen in the [facility] ED for pain during intercourse. CT scan showed no acute abnormalities, but did have some pelvic cysts. Is following up with her cardiac nurse (Bianca), who is planning a hysterectomy in several months. No specific treatments were started this time. Was also noted to have fatty liver on the CT scan. 2. About 4 days ago, began experiencing nausea and vomiting with any time she tried to move. 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 She then started feeling short of breath and tightness in her chest when she started walking. Ultimately ended up in the ED at [place], she underwent CT of the chest which showed no PE and no pulmonary disease. Was treated for anxiety and possible pleurisy and discharged home. 3. The symptoms persisted, and she was unable to sleep because of the dizziness, chest discomfort and associated frustration, and went to the ED in [place] yesterday. They also did CT scan which was unremarkable. EKG showed some bradycardia, was told she had anxiety and discharged home. 4. Today she presents, feeling very frustrated. She continues to have the off-balance feeling when she turns quickly, lays back down. This causes her to feel nauseated. She is also developed spasm and tenderness in her neck with severe headache, especially posterior. Her thoracic spine hurts, and she is having pain radiating from her lower ribs around to her back, especially on the left side. Hurts to breathe and makes her feel short of breath with movement or walking. Her head feels congested and full, including her ears and sinuses. She has been taking Radha for the past month because of her allergies. A review of systems was negative except for the following: General: fatigue and sleep disturbance Psychiatric: Has bipolar 2 disorder, and is on multiple medications. However she feels this is been well controlled and does not feel that this is any type of change or worsening in her condition. She has had anxiety in the past, and this does not feel like her previous anxiety. There have been no recent changes or titration to any of her medications. ENT: headaches, nasal congestion, and head fullness Musculoskeletal: pain in back - bilateral posterior and left sternoclavicular joint, and left lower ribcage with palpation. Exam BP 100/70 (BP Site: Left Arm, BP Postition: Sitting) Pulse 66 Temp 36.8 C (98.2 F) (Oral) Resp 20 Ht 165.1 cm (5' 5 ) Wt 65.2 kg (143 lb 12.8 oz) SpO2 99% BMI 23.93 kg/m Physical Exam Vitals reviewed. Constitutional: General: She is not in acute distress. Appearance: She is well-developed. She is not toxic-appearing. HENT: Head: Normocephalic. Comments: Hallpike maneuver positive to the left Right Ear: External ear normal. Left Ear: External ear normal. Nose: Congestion and rhinorrhea present. Mouth/Throat: Mouth: Mucous membranes are moist. Eyes: General: No scleral icterus. Neck: Vascular: No carotid bruit. Comments: ROM: Limited flexion extension and rotation Cardiovascular: Rate and Rhythm: Normal rate and regular rhythm. Heart sounds: No murmur heard. No gallop. Pulmonary: Effort: Pulmonary effort is normal. Breath sounds: No wheezing or rales. Abdominal: Palpations: Abdomen is soft. Tenderness: There is no abdominal tenderness. There is no right CVA tenderness or left CVA tenderness. Musculoskeletal: General: Tenderness (Bilateral paraspinal muscles of the thoracic spine T1 through T12.) present. Cervical back: Tenderness (Bilateral paraspinal muscles from C1 through C7. Tender points along the occiput bilaterally.) present. Right lower leg: No edema. Left lower leg: No edema. Comments: Tender left sternoclavicular joint with palpation. Tender costosternal joints rib 9 and 10 on the left Lymphadenopathy: Cervical: No cervical adenopathy. Skin: General: Skin is warm and dry. Coloration: Skin is not jaundiced. Findings: No bruising. Neurological: Mental Status: She is alert and oriented to person, place, and time. Motor: No weakness. Coordination: Coordination normal. Deep Tendon Reflexes: Reflexes are normal and symmetric. Comments: Mild resting tremors hands and legs Psychiatric: Mood and Affect: Mood normal. Behavior: Behavior normal. Comments: Tearful Meds Current Outpatient Medications: acetaminophen-codeine (TYLENOL #3) 300-30 mg per tablet, take 1 tablet by mouth every 6 hours if needed for pain for 5 days, Disp: , Rfl: benzonatate (TESSALON PERLES) 100 mg capsule, Take 1 capsule (100 mg total) by mouth., Disp: , Rfl: busPIRone (BUSPAR) 15 mg tablet, , Disp: , Rfl: CAPLYTA 42 mg capsule capsule, , Disp: , Rfl: clonazePAM (KlonoPIN) 0.5 mg tablet, , Disp: , Rfl: fexofenadine (RADHA) 180 mg tablet, Take 1 tablet (180 mg total) by mouth in the morning., Disp: , Rfl: ibuprofen (MOTRIN) 800 mg tablet, take 1 tablet by mouth every 8 hours if needed for pain, Disp: , Rfl: levonorgestreL (MIRENA) 21 mcg/24 hours (8 yrs) 52 mg IUD, by intrauterine route daily., Disp: , Rfl: naloxone (NARCAN) 4 mg/actuation spray,non-aerosol nasal spray, ADMINISTER 1 SPRAY INTO ONE NOSTRIL. CALL 911. REPEAT AFTER 2-3 MIN IF NO OR MINIMAL RESPONSE, Disp: , Rfl: omeprazole (PriLOSEC) 10 mg capsule, Take 2 capsules (20 mg total) by mouth in the morning., Disp: , Rfl: promethazine (PHENERGAN) 12.5 mg suppository, Insert 1 suppository (12.5 mg total) into the rectum every 6 (six) hours as needed for nausea or vomiting., Disp: 12 each, Rfl: 0 promethazine (PHENERGAN) 12.5 mg tablet, Take 1 tablet (12.5 mg total) by mouth every 6 (six) hours as needed for nausea or vomiting., Disp: 10 tablet, Rfl: 0 QUEtiapine (SEROquel) 25 mg tablet, take 1 tablet by mouth once daily at bedtime if needed for insomnia, Disp: , Rfl: baclofen (LIORESAL) 10 mg tablet, Take 0.5 tablets (5 mg total) by mouth 2 (two) times a day as needed for muscle spasms., Disp: 20 tablet, Rfl: 0 FLUoxetine (PROzac) 20 mg capsule, take 1 capsule by mouth every morning, Disp: , Rfl: meclizine (ANTIVERT) 25 mg tablet, Chew 1 tablet (25 mg total) and swallow 3 (three) times a day as needed for dizziness., Disp: 30 tablet, Rfl: 0 predniSONE (DELTASONE) 20 mg tablet, Take 1 tablet (20 mg total) by mouth in the morning for 5 days., Disp: 5 tablet, Rfl: 0 VYVANSE 40 mg capsule, take 1 capsule by mouth IN THE MORNING for ADHD, Disp: , Rfl: Lab Results Admission on 11/19/2023, Discharged on 11/19/2023 Component Date Value Ref Range Status White Blood Cells 11/19/2023 7.9 4.0 - 11.0 X10E9/L Final RBC count 11/19/2023 4.42 3.80 - 5.20 X10E12/L Final Hemoglobin 11/19/2023 13.3 11.7 - 15.5 g/dL Final Hematocrit 11/19/2023 38.7 35 - 47 % Final MCV 11/19/2023 88 80 - 100 fL Final MCH 11/19/2023 30.1 27 - 34 pg Final MCHC 11/19/2023 34.4 32 - 36 g/dL Final RDW 11/19/2023 13.2 11.5 - 15.0 % Final Platelets 11/19/2023 306 150 - 450 X10E9/L Final MPV 11/19/2023 8.2 7 - 12 fL Final % neutrophils 11/19/2023 57.5 % Final % lymphocytes 11/19/2023 33.3 % Final % monocytes 11/19/2023 7.1 % Final % eosinophils 11/19/2023 1.3 % Final % Basophils 11/19/2023 0.8 % Final Neutrophils Absolute (A) 11/19/2023 4.6 1.5 - 6.6 X10E9/L Final Lymphocytes Absolute 11/19/2023 2.6 1.0 - 3.5 X10E9/L Final Monocytes Absolute 11/19/2023 0.6 0 - 0.9 X10E9/L Final Eosinophils Absolute 11/19/2023 0.1 0.0 - 0.4 X10E9/L Final Basophils Absolute 11/19/2023 0.1 0.0 - 0.2 X10E9/L Final Sodium 11/19/2023 137 134 - 146 mmol/L Final Potassium, Bld 11/19/2023 3.5 3.5 - 5.0 mmol/L Final Chloride 11/19/2023 107 98 - 109 mmol/L Final CO2 11/19/2023 27 22 - 32 mmol/L Final Anion gap 11/19/2023 3 (L) 5 - 15 mmol/L Final BUN 11/19/2023 15 5 - 23 mg/dL Final Creatinine 11/19/2023 0.98 0.40 - 1.00 mg/dL Final Glucose 11/19/2023 81 65 - 99 mg/dL Final Calcium 11/19/2023 8.6 8.5 - 10.5 mg/dL Final Total Protein 11/19/2023 7.8 6.0 - 8.0 g/dL Final Albumin 11/19/2023 4.5 3.2 - 5.3 g/dL Final Alkaline Phosphatase 11/19/2023 70 39 - 130 U/L Final AST 11/19/2023 19 0 - 41 U/L Final ALT 11/19/2023 15 0 - 31 U/L Final Total bilirubin 11/19/2023 0.5 0.3 - 1.2 mg/dL Final eGFR (CKD-EPI)non-race dependent 11/19/2023 82 >59 ml/min/1.73sq.m Final Troponin I, High Sensitivity 11/19/2023 <2 <16 ng/L Final 1 Hour Trop I, High Sensitivity 11/19/2023 <2 <16 ng/L Final D-dimer 11/19/2023 <150 <255 ng/mL DDU Final Specific gravity [facility] 11/19/2023 1.015 1.003 - 1.035 Final Leukocyte esterase [facility] 11/19/2023 Negative Negative^Negative Final Nitrite [facility] 11/19/2023 Negative Negative^Negative Final Ph 11/19/2023 8.5 5.0 - 8.5 Final Protein [facility] 11/19/2023 Negative Negative^Negative mg/dL Final Urine glucose [facility] 11/19/2023 Negative Negative^Negative mg/dL Final Ketones [facility] 11/19/2023 Negative Negative^Negative mg/dL Final Urobilinogen [facility] 11/19/2023 1.0 <1.1 eu/dL Final Bilirubin [facility] 11/19/2023 Negative Negative^Negative Final Hemoglobin [facility] 11/19/2023 Negative Negative^Negative Final Nursing urine 11/19/2023 Negative Negative^Negative Final Other Testing X-ray chest 2 views Result Date: 11/19/2023 XR CHEST 2 VWS HISTORY: Cough, chest pain, chest discomfort, shortness of breath COMPARISON: Chest radiographs 08/28/2020 FINDINGS: PA and lateral upright films obtained. The cardiomediastinal silhouette is within normal limits. No pleural effusion. No consolidation. IMPRESSION: No radiographic evidence of acute cardiopulmonary process. Approved by Resident: Anatoly Reynolds DO on 11/19/2023 5:04 PM Prem Mendez MD have personally reviewed the image(s) and agree with and/or edited the report Finalized by Prem Martinez MD on 11/19/2023 5:27 PM X-ray chest 2 views Result Date: 11/17/2023 EXAMINATION: TWO XRAY VIEWS OF THE CHEST 11/17/2023 9:03 pm COMPARISON: None. HISTORY: ORDERING SYSTEM PROVIDED HISTORY: Persistent cough TECHNOLOGIST PROVIDED HISTORY: Persistent cough FINDINGS: Cardiac and mediastinal contours are within normal limits. No focal airspace consolidation. No pleural effusion or pneumothorax. No acute osseous abnormality. No acute cardiopulmonary disease. Tom Lemus DO., [facility] Physicians Office: [phone] documented in this encounter [facility] 11-20-2023 Hospital Discharge instructions Noemí Garcia DO - 11/20/2023 9:40 PM EDT Please follow-up with your primary care doctor tomorrow, continue to take your pain medication as prescribed, a short course of additional pain medication was ordered, return to ER for worsening symptoms or inability to breathe, or shortness of breath. documented in this encounter [facility] 11-20-2023 Miscellaneous Notes OC 198 - Called patient and indicates she was seen in [place] ER on Tuesday for chest pain, light headedness. Potassium was low and was treated. Was seen in [place] ER yesterday for same symptoms. Having chest pain, shortness of breath, fatigue back pain and vomited x 1. Rates pain 8-9. Has been taking Ibuprofen and Tylenol and no improvement with symptoms. Chest pain mid chest to left chest and radiates to back. Was intermittent but now is constant. No cardiac history. Hx of asthma. Reason for Disposition [1] Chest pain (or angina ) comes and goes AND [2] is happening more often (increasing in frequency) or getting worse (increasing in severity) (Exception: Chest pains that last only a few seconds.) Protocols used: Chest Pain-A-AH documented in this encounter [facility] 11-20-2023 Telephone encounter Note OC 198 - Called patient and indicates she was seen in [place] ER on Tuesday for chest pain, light headedness. Potassium was low and was treated. Was seen in [place] ER yesterday for same symptoms. Having chest pain, shortness of breath, fatigue back pain and vomited x 1. Rates pain 8-9. Has been taking Ibuprofen and Tylenol and no improvement with symptoms. Chest pain mid chest to left chest and radiates to back. Was intermittent but now is constant. No cardiac history. Hx of asthma. Reason for Disposition [1] Chest pain (or angina ) comes and goes AND [2] is happening more often (increasing in frequency) or getting worse (increasing in severity) (Exception: Chest pains that last only a few seconds.) Protocols used: Chest Pain-A-AH [facility] 11-18-2023 Miscellaneous Notes Body Aches, numbness tingling legs now Was seen in ER last night for lightheaded and SOB. Denies fever tonight. Caller states it is hard to stay awake, states she is exhausted. Slurred speech. Patient states she is in a fog. She can only speak for about one minute without slurring words and falling asleep. She reports that the numbness in her legs has resolved. Reason for Disposition Patient sounds very sick or weak to the triager Protocols used: Neurologic Jafryqc-G-AR Per protocol Caller referred back to the ED for assessment. She states she will go. documented in this encounter [facility] 11-18-2023 Telephone encounter Note Body Aches, numbness tingling legs now Was seen in ER last night for lightheaded and SOB. Denies fever tonight. Caller states it is hard to stay awake, states she is exhausted. Slurred speech. Patient states she is in a fog. She can only speak for about one minute without slurring words and falling asleep. She reports that the numbness in her legs has resolved. Reason for Disposition Patient sounds very sick or weak to the triager Protocols used: Neurologic Igsiybl-S-GN Per protocol Caller referred back to the ED for assessment. She states she will go. [facility] 07-07-2023 History of Present illness Narrative IM PROGRESS NOTE Patient - Cari Gaitan Age - 28 [facility] 1995 [id number] ASSESSMENT & PLAN 1. Bipolar 1 disorder ([facility]) -overall stable -undergoing medical regimen change. Will [...] disorder and anxiety and was admitted to [facility] for evaluation and adjustment of her medications. [...] have CT scan and upper GI at [facility]. Both were termed normal except for changes related to her recent kidney stone and bladder manipulation. A review of systems was negative except for the following: General: sleep disturbance Psychiatric: anxiety, mood swings, and now seeing a new mental health provider (Nelly Pederson) out of [place]. Has recently had wholesale changes to her [...] RECOMMENDED. Final Other Testing No results found. Tom Lemus DO., [facility] Physicians Office: [phone] documented in this encounter [facility] 05-19-2023 History and physical note Note Date/Time May 19, 2023 1:38pm [facility] [address] [place] [address] Gastroenterology H&P Signed Patient: Cari Gaitan MR#: [id number] : 1995 Acct:[id number] Age/Sex: 28 / F Adm Date: 3 Loc: Room: Type: [facility] Attending Dr: Fany Ceballos MD Copies to: MD Tom Abarca DO~ Date of Service: 05/19/2023 HISTORY [...] By: <Electronically signed by Fany Ceballos MD> 05/19/23 1338 [facility] Work Phone: 1(832) 571-541312-21-2023 [facility]* Encounter Date Diagnosis Assessment Notes Treatment Notes Treatment Clinical Notes Apr, Abnormal abdominal C T scan (ICD-10 - R93.5) Apr, Pyelonephritis of left kidney (ICD-10 - N12) [facility] Other 12-12-2023 Hospital Discharge instructions Patient Education [...] Follow these instructions at home: Medicines Take cgni-nqs-nomgeyk and prescription medicines only as told by [...] or the blood stops without treatment. Take icqx-dbk-flnerqb and prescription medicines only as told by your health care provider. Drink enough fluid to keep your urine pale yellow. This information is not intended to replace advice given to you by your health care provider. Make sure you discuss any questions you have with your health care provider. Document Revised: 01/14/2021 Document Reviewed: 01/14/2021 [employer] Patient Education 2022 [employer]. Follow Up Care 05/06/2023 07:59:50 With:ROLANDO DEVLIN, Rishi Thomas, URL Address: [facility] [address] , [place] [address]- When:Within 4 Month(s) Comments:w/ELYSE [facility] Nancy 11-29-2023 Evaluation note* Encounter Date Diagnosis Assessment Notes Treatment Notes Treatment Clinical Notes Mar, Irritable bowel syndrome with constipation (ICD-10 - K58.1) Mar, Delayed gastric emptying (ICD-10 - K30) Mar, Vomiting (ICD-10 - R11.10) [facility] Other 09-15-2023 Evaluation note* Encounter Date Diagnosis [...] no improvement in 2 to 3 days [facility] Other 09-10-2023 Hospital Discharge instructions Additional Instructions Important Contact Information You can call [facility] at [phone] any time day or night if you [...] Text Line (available 20/12) text 4HOPE to [phone] [facility] Hope Line (available 8 a.m. Midnight) call [phone] ([phone]) [facility] Work Phone: 1(810) 919-430509-09-2023 Progress note Author Karri Kamara [facility] February 05, 2023 12:00pm Note Date/Time February 05, 2023 12:00pm [facility] [address] [place] [address] Psychiatry Progress Note Signed Patient: Cari Gaitan MR#: [id number] : 1995 Acct:[id number] Age/Sex: 27 / F Adm Date: 3 Loc: Room: 3F4569-8 Type : ADM IN Attending Dr: Karri Kamara MD Copies to: ~ Date of Service: 02/05/2023 Subjective Subjective Narrative: Cari reported that she feels good today. She [...] explained Documented By: Karri Kamara MD 02/05/23 1153 Signed By: <Electronically signed by Karri Kamara MD> 02/05/23 1200 [facility] Work Phone: 1(521) 286-210609-08-2023 Progress note Author Karri Kamara [facility] February 04, 2023 1:43pm Note Date/Time February 04, 2023 1:44pm [facility] [address] [place] [address] Psychiatry Progress Note Signed Patient: Cari Gaitan MR#: [id number] : 1995 Acct:[id number] Age/Sex: 27 / F Adm Date: 3 Loc: Room: [address] [place] [address] Type : ADM IN Attending Dr: Karri [...] She is concerned about her going into monie reported that she would like something for [...] alternatives explained Documented By: Karri Kamara MD 02/04/23832 Signed By: <Electronically signed by Karri Kamara MD> 02/04/23 1343 [facility] Work Phone: 1(121) 244-447309-07-2023 Miscellaneous Notes* Telephone Encounter - Patricia David - 02/03/2023 3:38 PM EDT Left VM for patient to call office to update registration and go over records needed for review prior to scheduling. * Telephone Encounter - Patricia David - 02/03/2023 3:38 PM EDT ----- Message from Rizwana Smallwood sent at 02/01/2023 3:13 PM EDT ----- Regarding: Delayed Gastric Emptying No patient name on file. is being referred to or the Gastroparesis clinic. Referring Physician: Dr. Tom milton Has the patient had a Gastric Emptying Study? Yes Which facility or hospital was the Gastric Emptying Study done at (please list full name of hospital or facility)? [facility] If the patient had a gastric emptying [...] G/J Tube?No Preferred phone number for contact: [phone] [facility] History and physical note Author Karri Kamara [facility] February 03, 2023 11:58am Note Date/Time February 03, 2023 11:58am [facility] [address] [place], [place] [id number] Psychiatry H&P Signed Patient: Cari Gaitan MR#: [id number] : 1995 Acct:[id number] Age/Sex: 27 / F Adm Date: 3 Loc: 1S Room: [address] [place] [address] Type: ADM IN Attending Dr: Karri Kamara MD Copies to: MD Tom Wyatt,~ Date of Service: 02/03/2023 HPI History [...] States she recently saw her psychiatrist at [facility] and was restarted on Latuda. She has [...] and is not displaying any signs of monie. 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 Nurse pal[pates pt's abdomen when pt feeling [...] at this time. documented in this [facility] Phone: 1(358) 685-787202-02-2023 Hospital Discharge instructions* Discharge Instructions* Jenna Elliott RN - 07/01/2022 12:27 AM EST OUTPATIENT DISCHARGE Dr. Miguel Aguilera [facility] Dr. Katelynn Patel [address] or Sam Chyna Prakash [facility] [address] [facility] [place] [address] [place] [address] ACTIVITY LIMITATIONS: ( x )Up and about [...] AND DELIVERY . documented in this encounterBON [employer] Phone: 1(699) 213-247009-14-2022 History and physical note Author Tae Natarajan [facility] February 10, 2022 5:06pm Note Date/Time February 10, 2022 5:06pm [facility] [address] [place] [address] Vascular Surgery H&P Signed Patient: Cari Gaitan MR#: [id number] : 1995 Acct:[id number] Age/Sex: 26 / F Adm Date: 2 Loc: Room: Type: [facility] Attending Dr: Tae Natarajan MD Copies to: MD Tom Hernandez DO~ Date of Service: 02/10/2022 HPI History of Present Illness Chief complaint: Hematuria HPI: Ms. Gaitan is a 26 year old female being evaluated by Dr. Young for recurrent gross hematuria. Other evaluation including CT scan has been negative and Dr. Young requested diagnostic arteriogram and venogram. PMFSH Vaccinated for COVID-19?: Yes Medical History (Updated 02/10/22 @ 17:05 by Tae Natarajan MD) Anxiety Bipolar 1 disorder Depressed Panic attacks Schizoaffective disorder Family History (Updated 01/09/21 @ 02:19 by Tracey lFynn LPN) Mother Hypertension Father Anxiety Father Depression [...] mg PO DAILY 02/10/22 [History Confirmed 02/10/22] rjbcbowvqx-szzwujsstqnaf-hkjjduqk 50 mg-300 mg-40 mg capsule (Fioricet) 1 [...] signed by MD Tae Natarajan> 02/10/22 [address] [facility] Work Phone: 1(852) 468-236908-29-2022 Evaluation note* Encounter Date Diagnosis Assessment Notes Treatment Notes Treatment Clinical Notes Dec, Gross hematuria (ICD-10 - R31.0) Dec, Other [Hematuria I called Dr. Young regarding this patient. He does not feel that a CT will be the likely to show an AVM and if 1 is present. He had a prior patient with similar presentation who had a positive diagnostic arteriogram. We will go ahead with arteriogram and venogram as requested. [employer] Other 05-15-2022 Hospital Discharge instructions* Instructions* Niles Vazquez PA-C - 10/11/2021 Take ibuprofen doaj-uhm-rowfsqg 600 mg 3 times daily as needed for pain. Follow- up with your primary care provider and discuss additional testing if symptoms not improved. Return to the emergency room for any worsening symptoms. * Attachments The following attachments cannot be sent through Care Everywhere. * Pelvic Pain (Tajik) documented in this [facility] [employer] Work Phone: 1(473) 707-823105-03-2022 Hospital Discharge instructions Patient Education 09/29/2021 13:37:25 [...] Follow these instructions at home: Medicines Take djic-net-awempfz and prescription medicines only as told by [...] or the blood stops without treatment. Take lxgg-bdm-qdxrenw and prescription medicines only as told by your health care provider. Drink enough fluid to keep your urine clear or pale yellow. This information is not intended to replace advice given to you by your health care provider. Make sure you discuss any questions you have with your health care provider. Document Released: 05/16/2006 Document Revised: 10/10/2019 Document Reviewed: 06/18/2017 [employer] Patient Education 2020 [employer]. Follow Up Care 09/22/2021 14:13:42 With:ROLANDO DEVLIN, Rishi Thomas, URL Address: [facility] [address] , [place] [address]- Business (1) When: Unknown [facility] 04-08-2022 Hospital Discharge instructions Patient [...] including vitamins, herbs, eye drops, creams, and wnck-gcj-dxvhczk medicines. Any problems you or family members [...] provider tells you to take them. ?Taking nmms-gcn-ejtqeqk medicines, vitamins, herbs, and supplements. Follow instructions [...] Follow these instructions at home: Medicines Take wktm-eia-znydydw and prescription medicines only as told by [...] 05/13/2001 Document Revised: 05/08/2019 Document Reviewed: 05/08/2019 [employer] Patient Education 2020 [employer]. Follow Up Care 08/07/2021 15:47:45 With:ROLANDO DEVLIN, Rishi Thomas, URL Address: [address] [place] [address]- When: Unknown Comments:will schedule Cysto [facility] discharge summary Author Karri Kamara [facility] February 06, 2023 11:04am Note Date/Time February 06, 2023 11:04am [facility] [address] [place] [address] Discharge Summary Signed Patient: Cari Gaitan MR#: [id number] : 1995 Acct:[id number] Age/Sex: 27 / F Adm Date: 3 Loc: Room: [address] [place] [address]: Karri Kamara MD Copies to: MD Tom Wyatt,DO~ Providers Date of Discharge: 02/06/23 Discharging Provider: Karri Kamaar Primary Care Provider: Tom Lemus Discharge Diagnosis (1) Major depressive disorder, [...] States she recently saw her psychiatrist at [facility] and was restarted on Latuda. She has [...] and is not displaying any signs of monie. 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 Midnight) call [phone] ([phone]) Stand Alone Forms: Work/School Release Form Prescriptions: [...] Follow Up: [facility] [Other] (fax:[phone]) [facility] [Outside] Tom Lemus DO [Primary Care Provider] - (Please contact for any medical needs or concerns) Documented By: Karri Kamara MD 02/06/233 Signed By: <Electronically signed by Karri Kamara MD> 02/06/23 [address] [facility] Work Phone: Evaluation + Plan note No data available for this section [facility] evaluation + Plan note Future Appointments Appointment Date:02/05/2022 09:45:00 AM Scheduled Provider:Rishi YOUNG MD Location:[facility] Appointment Type:URO Office Visit [facility] Evaluation + Plan note Future Appointments Appointment Date:09/27/2023 10:15:00 AM Scheduled Provider:Rishi YOUNG MD Location:[facility] access hospital Appointment Type:URO Office Visit [facility] Evaluation note* Diagnosis Lower abdominal pain- Primary Abdominal pain, other specified site documented in this encounter [facility] Work Phone: evaluation note* Diagnosis Onset Date Resolution Status Hematuria acute [facility] Work Phone: Evaluation note* Diagnosis Hyperemesis- Primary Persistent vomiting Pelvic cramping Unspecified symptom associated with female genital organs [facility] Work Phone: evaluation note* Diagnosis Onset Date Resolution Status Bipolar 1 disorder acute Depression acute Major depressive disorder, recurrent acute Suicidal ideation acute [facility] Work Phone: Evaluation noteNo assessment information available [facility] Work Phone: Evaluation note* Diagnosis Postoperative visit S/P hysterectomy Acquired absence of both cervix and uterus [facility] Diagnosis Pre-op examination Menorrhagia with regular cycle Pelvic pain in female Unspecified symptom associated with female genital organs Dyspareunia in female Dysmenorrhea Endometriosis Endometriosis, site unspecified [facility] Diagnosis Postoperative visit S/P hysterectomy Acquired absence of both cervix and uterus [facility] Diagnosis Conversion disorder- Primary documented in this encounter [facility] note* Diagnosis Simple partial seizure (CMS-HCC)- Primary Orthostatic hypotension Abnormal EKG Nonspecific abnormal electrocardiogram (ECG) (EKG) [facility] Diagnosis Chest wall pain- Primary Painful respiration documented in this encounter [facility] note* Diagnosis Acute stress reaction- Primary Other acute reactions to stress documented in this encounter [facility] note* Diagnosis POTS (postural orthostatic tachycardia syndrome)- Primary Unspecified tachycardia [facility]* Diagnosis Transient loss of consciousness- Primary Syncope and collapse Orthostatic lightheadedness Dizziness and giddiness Racing heart beat Tachycardia, unspecified [facility] Diagnosis Bipolar 1 disorder (CMS-HCC)- Primary Oropharyngeal dysphagia Dysphagia, oropharyngeal phase Generalized anxiety disorder with panic attacks [facility]* Diagnosis Benign paroxysmal positional vertigo of left ear- Primary Somatic dysfunction of cervical region Nonallopathic lesion of cervical region, not elsewhere classified Somatic dysfunction of thoracic region Nonallopathic lesion of thoracic region, not elsewhere classified Bipolar 2 disorder ([facility]-HCC) Other bipolar disorders [facility]* Diagnosis Somatic dysfunction of cervical region Nonallopathic lesion of cervical region, not elsewhere classified Somatic dysfunction of thoracic region Nonallopathic lesion of thoracic region, not elsewhere classified [facility]* Diagnosis Dysuria- Primary Acute cystitis with hematuria [facility]* Diagnosis Acute cystitis with hematuria- Primary [facility]* Diagnosis Somatic dysfunction of cervical region Nonallopathic lesion of cervical region, not elsewhere classified Somatic dysfunction of thoracic region Nonallopathic lesion of thoracic region, not elsewhere classified [facility]* Diagnosis Wellness examination- Primary Somatic dysfunction of thoracic region Nonallopathic lesion of thoracic region, not elsewhere classified Bipolar 1 disorder ([facility]-HCC) [facility]* Diagnosis Syncope, unspecified syncope type- Primary Recurrent episodes of unresponsiveness Nonepileptic episode ([facility]-HCC) Recurrent episodes of unresponsiveness Syncope, unspecified syncope type documented [facility]* Diagnosis Nausea vomiting and diarrhea- Primary Nausea with vomiting Syncope and collapse Dehydration documented in this encounter [facility] note* Diagnosis Other migraine with status migrainosus, not intractable- Primary [facility]* Diagnosis POTS (postural orthostatic tachycardia syndrome) Unspecified tachycardia [facility]* Diagnosis Other migraine without status migrainosus, not intractable- Primary [facility]* Diagnosis Seizure-like activity (HCC)- Primary Other convulsions documented in this encounter [facility] note* Diagnosis POTS (postural orthostatic tachycardia syndrome)- Primary Unspecified tachycardia Nausea and vomiting, unspecified vomiting type Chalazion of left upper eyelid Bilateral thoracic back pain, unspecified chronicity documented [facility]* Diagnosis Transient loss of consciousness- Primary Syncope and collapse Heart palpitations Palpitations Orthostatic lightheadedness Dizziness and giddiness Psychogenic nonepileptic seizure documented in this encounter [facility] note* Diagnosis Other migraine without status migrainosus, not intractable documented [facility]* Diagnosis Hot flashes Pelvic pain in female Unspecified symptom associated with female genital organs PCOS (polycystic ovarian syndrome) Polycystic ovaries documented in this encounter [facility] note* Diagnosis Psychogenic nonepileptic seizure- Primary documented in this encounter [facility] note* Diagnosis Psychogenic nonepileptic seizure documented in this encounter [facility] note* Diagnosis Other migraine without status migrainosus, not intractable- Primary On valproic acid therapy Migraine aura occurring with and without headache [facility]* Diagnosis Cervical radiculopathy- Primary Brachial neuritis or radiculitis nos Nausea and vomiting, unspecified vomiting type documented in this encounter [facility] note* Diagnosis Seizure (HCC)- Primary Other convulsions Seizure disorder (HCC) Unspecified epilepsy without mention of intractable epilepsy documented in this encounter [facility] note* Diagnosis Seizure-like activity (HCC)- Primary Other convulsions documented in this encounter [facility] note* Diagnosis Convulsions, unspecified convulsion type (HCC)- Primary documented in this encounter [facility] note* Diagnosis 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 documented in this encounter [facility] general Narrative - Reported* Type Description Date Medical History migraine headache Medical History endometriosis Medical History PCOS Medical History borderline personality disorder Medical History bipolar Medical History anxiety Medical History chronic depression Surgical History laparoscopy x3 female Surgical History umbilical hernia repair Hospitalization History 1 [facility] 2020 Hospitalization History as a child for stomach p ain [facility] Other [facility] Narrative - Reported* Type Description Date Medical History migraine headache Medical History endometriosis Medical History PCOS Medical History borderline personality disorder Medical History bipolar Medical History anxiety Medical History chronic depression Surgical History laparoscopy x3 female Surgical History umbilical hernia repair Hospitalization History 1 [facility] 2020 Hospitalization History as a child for stomach p ain Hospitalization History LATUDA REACTION 1 [facility] 02/02/2023 [facility] Other Hospital Discharge instructions Additional Instructions Hold Metformin for 2 days. No heavy lifting of anything over 5 pounds. No pushing or pulling. No vigorous activity. Remove dressing in 24 hours.[facility] Work Phone: Hospital Discharge instructions Additional [...] NOT operate machinery such as power tools, [employer] mowers, snow blowers, sewing machines, etc. for [...] problems. -Follow up with PCP. -Office number [phone]. [facility] Work Phone: Hospital Discharge instructions No data available for this section [facility] InstructionsNot on filedocumented in this encounter [facility] filedocumented in this encounter [facility] on filedocumented in this encounter [facility] on filedocumented in this encounter [facility] on filedocumented in this encounter [facility] on filedocumented in this encounter [facility]Not on filedocumented in this encounter [facility]ructionsNot on filedocumented in this encounter [facility]ructionsNot on filedocumented in this encounter [facility]ructionsNot on filedocumented in this encounter [facility]* Attachments The following attachments cannot be sent through Care Everywhere. * Urinary Tract Infection, Adult ED (Tajik) documented in this encounterPro[facility] SystemInstructionsNot on file documented in this encounterProMedica Health SystemInstructionsNot on file documented in this encounterProMedica Health SystemInstructionsNot on file documented in this encounterProMedica Health SystemInstructionsNot on file documented in this encounterProMedica Health SystemInstructionsNot on file documented in this encounterProMedica Health SystemInstructionsNot on file documented in this encounterProMedica Health SystemInstructionsNot on file documented in this encounterProMedica Health SystemInstructionsNot on file documented in this encounterProMedica Health SystemInstructionsNot on file documented in this encounterProMedica Health SystemInstructionsNot on file documented in this encounterProMedica Health SystemProgress note No data available for this section [facility] Reason for visit Narrative* Consultation (Routine) - Pending Review Specialty Diagnoses / Procedures Referred By Nolan boyd Referred To Contact Neurology Diagnoses Recurrent episodes of unresponsiveness Nereyda Beth MD [address] [facility], [address] [place] [address] Phone: tel: fax: [facility] [address] [place] [address] Phone: tel: fax: Referral ID Status Reason Start Date Expiration Date Visits Requested Visits Authorized [id number] Pending Review Specialty Services Required 06/15/2024 06/15/2025 1 1 [facility] Assessments Diagnosis Gross hematuria Urgency of urination Diagnosis Gross hematuria Urgency of urination Diagnosis Gross hematuria Diagnosis Acute frontal sinusitis, recurrence not specified Diagnosis Viral URI with cough Acute upper respiratory infections of unspecified site Diagnosis Intractable nausea and vomiting Persistent vomiting Diagnosis Dysuria Gross hematuria Advance Directives Documents on File Type Date Recorded Patient Bailiff Expl anation Advance Directives and Living Will Power of Baseball Player Documents on File Type Date Recorded Patient Bailiff Expl anation Advance Directives and Living Will Power of Baseball Player Documents on File Type Date Recorded Patient Bailiff Expl anation ACP-Advance Directive ACP-Power of Baseball Player Advance Directive Response Recorded Date/ Time Advance Directives No January 08, 2021 7:10pm Advance Directive Response Recorded Date/ Time Advance Directives No January 08, 2021 6:10pm Date Activated Date Inactivated Comments 09/16/2022 12:58 PM 09/23/2022 7:09 PM Date Activated Date Inactivated Comments 09/16/2022 12:58 PM 09/23/2022 7:09 PM Latest Code Status on File Code Status Date Activated Date Inactivated Comments Full Code 09/16/2022 12:58 PM 09/23/2022 7:09 PM Date Activated Date Inactivated Comments 08/13/2024 3:45 PM 08/16/2024 4:28 PM Date Activated Date Inactivated Comments 09/16/2022 12:58 PM 09/23/2022 7:09 PM Date Activated Date Inactivated Comments 08/13/2024 3:45 PM 08/16/2024 4:28 PM Date Activated Date Inactivated Comments 09/16/2022 12:58 PM 09/23/2022 7:09 PM Discharge [...] Where can you learn more? Go to [email or web address] and sign in to your Sofea account. Enter J454 in the Search Health Information box to learn more about Upper GI Endoscopy: What to Expect at Home. . 7370-7454 Unbxd. Care instructions adapted under license by [employer]. This care instruction is for use with your licensed healthcare professional. If you have questions about a medical condition or this instruction, always ask your healthcare professional. [employer] disclaims any warranty or liability for your use of this information. Content Version: 9.9.462502; Last Revised: July 19, 2012 Upper GI [...] Where can you learn more? Go to [email or web address] and sign in to your Sofea account. Enter J454 in the Search Health Information box to learn more about Upper GI Endoscopy: What to Expect at Home. . 6739-2302 [employer]. Care instructions adapted under license by [employer]. This care instruction is for use with your licensed healthcare professional. If you have questions about a medical condition or this instruction, always ask your healthcare professional. [employer] disclaims any warranty or liability for your use of this information. Content Version: 9.9.876114; Last Revised: July 19, 2012 Upper GI [...] Where can you learn more? Go to [email or web address] and sign in to your Sofea account. Enter J454 in the Search Health Information box to learn more about Upper GI Endoscopy: What to Expect at Home. . 1083-4315 [employer]. Care instructions adapted under license by [employer]. This care instruction is for use with your licensed healthcare professional. If you have questions about a medical condition or this instruction, always ask your healthcare professional. [employer] disclaims any warranty or liability for your use of this information. Content Version: 9.9.508719; Last Revised: July 19, 2012 Upper GI [...] Where can you learn more? Go to [email or web address] and sign in to your Sofea account. Enter J454 in the Search Health Information box to learn more about Upper GI Endoscopy: What to Expect at Home. . 6660-3995 [employer]. Care instructions adapted under license by [employer]. This care instruction is for use with your licensed healthcare professional. If you have questions about a medical condition or this instruction, always ask your healthcare professional. [employer] disclaims any warranty or liability for your use of this information. Content Version: 99.077498; Last Revised: July 19, 2012 Upper GI [...] Where can you learn more? Go to [email or web address] and sign in to your Sofea account. Enter J454 in the Search Health Information box to learn more about Upper GI Endoscopy: What to Expect at Home. . 6275-0872 Unbxd. Care instructions adapted under license by [employer]. This care instruction is for use with your licensed healthcare professional. If you have questions about a medical condition or this instruction, always ask your healthcare professional. [employer] disclaims any warranty or liability for your use of this information. Content Version: [id number]; Last Revised: July 19, 2012 Upper GI [...] Where can you learn more? Go to [email or web address] and sign in to your Sofea account. Enter J454 in the Search Health Information box to learn more about Upper GI Endoscopy: What to Expect at Home. . [id number] [employer]. Care instructions adapted under license by [employer]. This care instruction is for use with your licensed healthcare professional. If you have questions about a medical condition or this instruction, always ask your healthcare professional. [employer] disclaims any warranty or liability for your use of this information. Content Version: [id number]; Last Revised: July 19, 2012 Upper GI [...] the day after the test, use an [id number] spray to numb your throat. Follow-up care [...] Where can you learn more? Go to [email or web address] and sign in to your Sofea account. Enter J454 in the Search Health Information box to learn more about Upper GI Endoscopy: What to Expect at Home. If you do not have an account, please click on the Sign Up Now link. Current as of: January 07, 2019Content Version: 12.4 Unbxd. Care instructions adapted under license by [employer]. If you have questions about a medical condition or this instruction, always ask your healthcare professional. [employer] disclaims any warranty or liability for your use of this information. documented in this encounter* Attachments The following attachments cannot be sent through Care Everywhere. * URI (Upper Respiratory Infection): Viral (Tajik) documented in this encounter Summary Purpose Family History Relationship Condition Age at Onset Recorded Date/T [...] SCAN W EJECTION FRACTION Toño Blanc MD [address] [place] [address] Chief Complaint and Reason for Visit Chief [...] To Contact Diagnoses Dysphagia DX DYSPHAGIA Procedures NM ESOPHAGOGASTRODUODENOSCOPY TRANSORAL DIAGNOSTIC EGD ESOPHAGOGASTRODUODENOSCOPY Toño Blanc MD [address] [place] [address] [facility] Reason Comments Cough pt states onset last week. PT states she is taking Prednisone and Keflex for a sinus infection Status Reason Specialty Diagnoses / Procedures Referred By Contact Referred To Contact Not Required - [facility]iology Diagnoses Nausea with vomiting, unspecified Procedures HC NM HEPATOBILIARY IMAGING W PHARM Toño Blanc MD [address] [place] [address] [facility] Nuclear Medicine [address] [place] [id number] Reason Comments Abdominal Cramping onset this am Vaginal Bleeding spotting onset at approx 1200, patient states she thinks she might be Reason Comments Abdominal Pain Started earlier toda y, states having contraction like pain, was leaking clear fluid, 17 weeks , has hyperemesis and on Zofran pump Reason Comments Appointment Reason Comments Post-op Visit Pt present today for 6 week post operative hysterectomy visit. Pt had a robotic hysterectomy on 02/15/2024. Reason Comments Menorrhagia Pre-op Visit embx Reason Comments Post-op Visit 1 week post operativ e visit/concerns. Robotic hysterectomy/bilateral salpingectomy on 02/15/2024. Reason Comments Generalized Body Aches Patient states th at her symptoms have been going for months. Aching in her upper torso/neck Headache Loss of Consciousness Patient states tatiana t for the past few months she has been having episodes where she will collapse to the floor and become unresponsive. Reason Comments Follow-up Reason Comments Chest Pain Shortness of Breath Pt to ED from home w ith c/o cough, chest pain, and shortness of breath.Onset of symptoms x3 days ago. Pt seen in ED on for symptoms and prescribedTessalon Perles. Directed to follow-up with PCP. Pt unable to get into office until Tuesday.Pt seen in [place] ED for symptoms as well. Pt reports being diagnosed with Pleurisy and prescribed Phenergan. Pt back today with worsening symptoms. Pt was unable to retrieve medication from pharmacy.Pt took Ibuprofen and Tylenol - last dose 2pm. Reason Onset Date Comments New Patient 06/19/2024 Reason Comments Loss of Consciousness Loss of consciousn ess since patient took albuterol treatment and felt tingly and had a tight chest. Hx of asthma. Reason Onset Date Comments Seizures 06/23/2024 Headache 06/23/2024 Reason Onset Date Comments Results 07/04/2024 Reason Comments New Patient Reason Comments abd recheck Thyroid Problem Wants checked Reason Onset Date Comments Slurred Speech 11/18/2023 Reason Onset Date Comments Back Pain 11/20/2023 Having chest maldonado n, back pain, shortness of breath since ,. Reason Comments Shortness of Breath Fatigue Been to ER 3 times Reason Comments Med Refill Reason Comments Urinary Tract Infection Reason Comments wellness Reason Onset Date Comments Memory Loss 07/16/2024 Reason Comments Abdominal Pain Patient stated she i s having abdominal pain, with N/V/D. states that she passed out when he was getting her out of the car. States that she does have a Hx of POTS Loss of Consciousness Reason Onset Date Comments FMLA 07/27/2024 Reason Onset Date Comments Medication Problem 08/03/2024 Reason Onset Date Comments Migraine 08/04/2024 Reason Onset Date Comments Headache 08/07/2024 Reason Comments New Patient [employer]LL[employer] SALES [employer]SULTANT REFERRAL DR KRIS Altamirano POTS, TILT TABLE [facility], IP TTH AND PETE, TI[facility]IN [facility], SCHED W/PT Specialty Diagnoses / Procedures Referred By Contac t Referred To Contact Cardiology Diagnoses POTS (postural orthostatic tachycardia syndrome) Leighton Staton MD [address] [facility] [address] [place] [address] Phone: tel: fax: Azam Helm MD [address] [place] [address] Phone: tel: fax: Referral ID Status Reason Start Date Expiration Date Visits Requested Visits Authorized [id number] Pending Review Specialty Services Required 07/04/2024 07/04/2025 1 1 Reason Comments Follow-up Neuro testing Reason Comments Established Patient Reason Onset Date Comments Med Refill 09/04/2024 Reason Comments Hot Flashes Pelvic Pain Reason Comments New Patient Specialty Diagnoses / Procedures Referred By Contac t Referred To Contact Neurology Diagnoses Psychogenic nonepileptic seizure Procedures CONSULT TO NEUROLOGY OFFICE/OUTPATIENT [facility] MDM 60 MINUTES Chadd Fisher, TEACHING ASSOCIATE.SPECIAL DIET COOK [address] [place] [address] Phone: tel: fax: Referral ID Status Reason Start Date Expiration Date V isits Requested Visits Authorized [id number] Closed PCP Requested Referral 08/31/2024 08/31/2025 1 1 Reason Comments functional seizures Specialty Diagnoses / Procedures Referred By Contac t Referred To Contact Psychology Diagnoses Psychogenic nonepileptic seizure Procedures CONSULT TO PSYCHOLOGY OFFICE/OUTPATIENT [facility] MDM 60 MINUTES Priscilla Gonzales MD [address] [address] Phone: tel: fax: Radha Roth, PhD [address] [place] [address] Phone: tel: fax: Referral ID Status Reason Start Date Expiration Date Visits Requested Visits Authorized [id number] Pending Review PCP Requested Referral 10/15/2024 10/15/2025 1 1 Reason Comments Numbness At the base of her s kull, brain fog, goes into shoulder down to the right fingers Reason Onset Date Comments Headache 12/19/2024 Reason Comments Seizures Reason Comments Seizures Patient has hx of se izures, takes Depakote and Ativan (PRN) at home. Patient reports multiple seizures within the last hour and half.. first few were absent and the last 3 were described as Grand Mal by patient significant other. Patient is seen by [facility] neurology. Reason Onset Date Comments Numbness 01/11/2025 Arm Pain 01/11/2025 Reason Comments Seizures Reason Comments Video EEG Monitoring Reason Comments Letter Diagnosis Letter INFORMATION SOURCE (unrecogn ized section and content) DATE CREATED AUTHOR 10/15/2019 [facility] DATE CREATED AUTHOR AUTHOR'S ORGANIZ ATION 03/07/2020 [facility] DATE CREATED AUTHOR AUTHOR'S ORGANIZ ATION 07/27/2021 [facility] DATE CREATED AUTHOR AUTHOR'S ORGANIZ ATION 09/24/2022 [facility] DATE CREATED AUTHOR AUTHOR'S ORGANIZ ATION 11/09/2023 [facility] DATE CREATED AUTHOR AUTHOR'S ORGANIZ ATION 05/28/2024 [facility] DATE CREATED AUTHOR AUTHOR'S ORGANIZ ATION 07/03/2024 [facility] DATE CREATED AUTHOR AUTHOR'S ORGANIZ ATION 10/01/2024 [facility] DATE CREATED AUTHOR AUTHOR'S ORGANIZ ATION 10/13/2024 [facility] DATE CREATED AUTHOR AUTHOR'S ORGANIZ ATION 12/09/2024 [facility] DATE CREATED AUTHOR AUTHOR'S ORGANIZ ATION 12/21/2024 [facility] DATE CREATED AUTHOR AUTHOR'S ORGANIZ ATION 01/03/2025 [facility] DATE CREATED AUTHOR AUTHOR'S ORGANIZ ATION 01/14/2025 [facility] DATE CREATED AUTHOR AUTHOR'S ORGANIZ ATION 01/24/2025 [facility] Scheduled Active and Recently Administ ered [...] 1917 (Given - Provider: Soha Lynn RN) Scheduled Medication Order 06/03/2024 06/04/2024 06/05/2024 busPIRone (BUSPAR) tablet 30 mg (COMPLETED) 30 mg, Oral, ONCE, 1 dose, On Tue06/05/24 at 2014 2023 (Given - Provid er: Niru Rodrgiuez RN) clonazePAM (KLONOPIN) tablet 0.5 mg (COMPLETED) 0.5 mg, Oral, ONCE, 1 dose, On Tue06/05/24 at 2014 2023 (Given - Provid er: Niru Rodriguez RN) cloNIDine (CATAPRES) tablet 0.2 mg (COMPLETED) 0.2 mg, Oral, ONCE, 1 dose, On Tue06/05/24 at 2014 2023 (Given - Provid er: Niru Rodriguez RN) lithium capsule 600 mg (COMPLETED) 600 mg, Oral, ONCE, 1 dose, On Tue06/05/24 at 2014, Maintain adequate fluid and sodium intake 2023 (Given - Provid er: Niru Rodriguez RN) traZODone (DESYREL) tablet 100 mg (COMPLETED) 100 mg, Oral, ONCE, 1 dose, On Tue06/05/24 at 2014 2022 (Given - Provid er: Niru Rodriguez RN) Scheduled Medication Order 11/18/2023 11/19/2023 11/20/2023 ketorolac (TORADOL) injection 30 mg 30 mg, IntraVENous, ONCE, 1 dose, On 11/20/23 at 2144, Do not administer for more than 5 days. 2144 (Not Given - Pr ovider: Pamela Koch RN - Reason: Patient/family refused) oxyCODONE-acetaminophen (PERCOCET) 5-325 MG per tablet 1 tablet (COMPLETED) 1 tablet, Oral, ONCE, 1 dose, On 11/20/23 at 2014, Maximum dose of acetaminophen is 4000 mg from all sources in 24 hours. 2009 (Given - Provid er: Pamela Koch RN) oxyCODONE-acetaminophen (PERCOCET) tablet 5-325 mg (2 tablet STARTER PACK) This order is for a take home starter pack of medication. Please document Not Given with a reason of other on the MAR along with a comment of sent home with patient. Maximum dose of acetaminophen is 4000 mg from all sources in 24 hours. 2220 ([facility] - Provider: Pamela Koch RN) PRN Medication Order 11/18/2023 11/19/2023 11/20/2023 iopamidol (ISOVUE-370) 76 % injection 75 mL (COMPLETED) 75 mL, IntraVENous, IMG ONCE PRN, 1 dose, Starting on 11/20/23 at 2041, Until 11/20/23 at 2101, Other 2101 (Given - Provid er: Ej Buckley) Scheduled Medication Order 01/06/2024 01/07/2024 01/08/2024 sodium chloride 0.9 % bolus 1,000 mL (COMPLETED) 1,000 mL (15.4 mL/kg), IntraVENous, at 983.6 mL/hr, Administer over 61 Minutes, ONCE, On 01/07/24 at 2300, For 1 dose 2301 (New Bag - Provider: Michelle Batres RN) 0012 (Stopped - Provider: Michelle Batres RN) Scheduled Medication Order 07/25/2024 07/26/2024 07/27/2024 diphenhydrAMINE (BENADRYL) injection 25 mg (COMPLETED) 25 mg, IntraVENous, ONCE, 1 dose, On Rebecca 07/26/24 at 2330, IV Push at rate not to exceed 25 mg/min. 0022 (Given - Provid er: Ludmila Michael RN) droPERidol (INAPSINE) injection 1.25 mg (COMPLETED) 1.25 mg, IntraVENous, ONCE, 1 dose, On Rebecca 07/26/24 at 2330 0024 (Given - Provid er: Ludmila Michael RN) potassium chloride (KLOR-CON M) extended release tablet 40 mEq (COMPLETED) 40 mEq, Oral, ONCE, 1 dose, On Tue07/27/24 at 0000, Do not crush or break. Do not crush, chew, or suck on tablet. Tablet may also be broken in half and each half swallowed separately. 0021 (Given - Provid er: Ludmila Michael RN) prochlorperazine (COMPAZINE) injection 10 mg (COMPLETED) 10 mg, IntraVENous, ONCE, 1 dose, On Rebecca 07/26/24 at 2300, If administering IV push, administer at a maximum rate of 5 mg/minute. Patients should remain lying down following administration and be reassessed for relief of nausea and presence of hypotension. Patients should be assisted the first time they get up after administration. 2303 (Given - Provider: Ludmila Michael RN) sodium chloride 0.9 % bolus 1,000 mL (COMPLETED) 1,000 mL (14.1 mL/kg), IntraVENous, at 2,000 mL/hr, Administer over 30 Minutes, ONCE, On Rebecca 07/26/24 at 2300, For 1 dose 2302 (New Bag - Provider: Ludmila Michael RN) 0111 (Stopped - Provider: Ludmila Michael RN) PRN Medication Order 07/25/2024 07/26/2024 07/27/2024 iopamidol (ISOVUE-370) 76 % injection 75 mL (COMPLETED) 75 mL, IntraVENous, IMG ONCE PRN, 1 dose, Starting on Rebecca 07/26/24 at 2311, Until Rebecca 07/26/24 at 2312, Other 231 (Given - Provider: Adelaida Serrato Shock) Scheduled Medication Order 01/09/2025 01/10/2025 01/11/2025 divalproex (DEPAKOTE ER) extended release tablet 500 mg 500 mg, Oral, DAILY, First dose on Tue01/11/25 at 2045, Until Discontinued, Do not crush or break. 2042 (Given - Provid er: Noemí Cortez RN) LORazepam (ATIVAN) injection 0.5 mg (COMPLETED) 0.5 mg, IntraVENous, ONCE, 1 dose, On Tue01/11/25 at 2000, Immediately prior to intravenous use, lorazepam Injection must be diluted with at least an equal volume of compatible solution (NS or D5W). 1953 (Given - Provid er: Noemí Cortez RN) Scheduled Medication Order 01/11/2025 01/12/2025 01/13/2025 acetaminophen (TYLENOL) tablet 1,000 mg (COMPLETED) 1,000 mg, Oral, ONCE, 1 dose, On Tue01/13/25 at 1845, Maximum dose of acetaminophen is 4000 mg from all sources in 24 hours. 1849 (Given - Provid er: Rachael De Santiago RN) Care Teams (unrecognized sec tion and content) Team Status: Active Member Role Status Dates Tom Lemus DO Primary Care Provider Active Team Status: Inactive Member Role Status Dates Tom Lemus DO Primary Care Provider Active Tom Patel MD Emergency Provider Active Karri Kamara MD Admit Provider, Attending Provider Active Mixing Tank Operator Relationship Specialty Start Date End Date MarlenyTom [place] [address] PCP - General Internal Medicine 10/11/21 Mixing Tank Operator Relationship Specialty Start Date [place] [address] PCP - General Internal Medicine 10/11/21 Team Status: Inactive Member Role Status Dates Tom Lemus DO Primary Care Provider Active Tae Natarajan MD Attending Provider Active Mixing Tank Operator Relationship Specialty Start Date End Date Bridgette Sargent MD [address] [place] [address] PCP - General Internal Medicine 06/30/22 Mixing Tank Operator Relationship Specialty Start Date End Date Agustin Ramos [address] [place] [id number] PCP - General 01/27/04 Team Status: Inactive Member Role Status Dates Tom Lemus DO Primary Care Provider Active Fany Ceballos MD Attending Provider Active Team Status: Inactive Member Role Status Dates Tom Lemus DO Primary Care Provide r, Attending Provider Active Start: December 29, 2023 End: December 29, 2023 Team Status: Inactive Member Role Status Dates Ron Valenzuela DO Attending Provider Active Start : January 16, 2024 End: January 16, 2024 Team Status: Inactive Member Role Status Dates Ron Valenzuela DO Attending Provider Active Start : February 15, 2024 End: February 15, 2024 Mixing Tank Operator Relationship Specialty Start Date End Date Tom Lemus MD [address] [place] [address] PCP - General Internal Medicine 11/01/22 Mixing Tank Operator Relationship Specialty Start Date End Date Tom Lemus MD [address] [place] [address] PCP - General Internal Medicine 11/01/22 Mixing Tank Operator Relationship Specialty Start Date End Date Tom Lemus MD [address] [place] [address] PCP - General Internal Medicine 11/01/22 Mixing Tank Operator Relationship Specialty Start Date End Date Tom Lemus MD [address] [place] [address] PCP - General Internal Medicine 11/01/22 Mixing Tank Operator Relationship Specialty Start Date End Date Tom Lemus MD [address] [place] [address] PCP - General Internal Medicine 11/01/22 Mixing Tank Operator Relationship Specialty Start Date End Date Tom Lemus MD [address] [place] [address] PCP - General Internal Medicine 11/01/22 Mixing Tank Operator Relationship Specialty Start Date End Date Bridgette Sargent MD [address] [place] [address] PCP - General Internal Medicine 06/30/22 Mixing Tank Operator Relationship Specialty Start Date End Date Tom Lemus DO [address] [place] [address] PCP - General Internal Medicine 12/19/22 Mixing Tank Operator Relationship Specialty Start Date End Date Tom Lemus DO [address] [place] [address] PCP - General Internal Medicine 12/19/22 Mixing Tank Operator Relationship Specialty Start Date End Date Bridgette Sargent MD [address] [place] [address] PCP - General Internal Medicine 06/30/22 Mixing Tank Operator Relationship Specialty Start Date End Date Tom Lemus DO [address] [place] [address] PCP - General Internal Medicine 12/19/22 Mixing Tank Operator Relationship Specialty Start Date End Date Bridgette Sargent MD [address] [place] [address] PCP - General Internal Medicine 06/30/22 Mixing Tank Operator Relationship Specialty Start Date End Date Tom Lemus DO [address] [facility] [place] [address] PCP - General Internal Medicine 12/19/22 Mixing Tank Operator Relationship Specialty Start Date End Date Tom Lemus DO [address] [facility] [place] [address] PCP - General Internal Medicine 12/19/22 Mixing Tank Operator Relationship Specialty Start Date End Date oTm Lemus DO [address] [place] [address] PCP - General Internal Medicine 12/19/22 Mixing Tank Operator Relationship Specialty Start Date End Date Agustin Ramos MD [address] [place], [place] [phone] PCP - General 01/27/04 Tom Lemus [address] [place] [address] Referring Internal Medicine 02/10/23 Mixing Tank Operator Relationship Specialty Start Date End Date Tom Lemus DO [address] [place] [address] PCP - General Internal Medicine 12/19/22 Mixing Tank Operator Relationship Specialty Start Date End Date Tom Lemus DO [address] [facility] [place] [address] PCP - General Internal Medicine 12/19/22 Mixing Tank Operator Relationship Specialty Start Date End Date Tom Lemus DO [address] [facility] [place] [address] PCP - General Internal Medicine 12/19/22 Mixing Tank Operator Relationship Specialty Start Date End Date Tom Lemus DO [address] [facility] [place] [address] PCP - General Internal Medicine 12/19/22 Mixing Tank Operator Relationship Specialty Start Date End Date Tom Lemus DO [address] [facility] [place] [address] PCP - General Internal Medicine 12/19/22 Mixing Tank Operator Relationship Specialty Start Date End Date Tom Lemus DO [address] [facility] [place] [address] PCP - General Internal Medicine 12/19/22 Mixing Tank Operator Relationship Specialty Start Date End Date Tom Lemus DO [address] [facility] [place] [address] PCP - General Internal Medicine 12/19/22 Mixing Tank Operator Relationship Specialty Start Date End Date Tom Lemus DO [address] [facility] [place] [address] PCP - General Internal Medicine 12/19/22 Mixing Tank Operator Relationship Specialty Start Date End Date Tom Lemus DO [address] [facility] [place] [place] [address] PCP - General Internal Medicine 12/19/22 Mixing Tank Operator Relationship Specialty Start Date End Date Tom Lemus DO [address] [facility] [place] [address] PCP - General Internal Medicine 12/19/22 Mixing Tank Operator Relationship Specialty Start Date End Date Bridgette Sargent MD [address] [place] [address] PCP - General Internal Medicine 06/30/22 Mixing Tank Operator Relationship Specialty Start Date End Date Tom Lemus DO [address] [place] [address] PCP - General Internal Medicine 12/19/22 Mixing Tank Operator Relationship Specialty Start Date End Date Tom Lemus DO [address] [place] [address] PCP - General Internal Medicine 12/19/22 Mixing Tank Operator Relationship Specialty Start Date End Date Tom Lemus DO [address] [place] [address] PCP - General Internal Medicine 12/19/22 Mixing Tank Operator Relationship Specialty Start Date End Date Tom Lemus DO [address] [place] [address] PCP - General Internal Medicine 12/19/22 Mixing Tank Operator Relationship Specialty Start Date End Date Agustin Ramos MD [address] [place] [address] PCP - General 01/27/04 Tom Lemus [address] [place] [address] Referring Internal Medicine 02/10/23 Mixing Tank Operator Relationship Specialty Start Date End Date Tom Lemus DO [address] [place] [address] PCP - General Internal Medicine 12/19/22 Mixing Tank Operator Relationship Specialty Start Date End Date Agustin Ramos MD [address] [place] [address] PCP - General 01/27/04 Tom Lemus [address] [place] [address] Referring Internal Medicine 02/10/23 Mixing Tank Operator Relationship Specialty Start Date End Date Tom Lemus DO [address] [place] [address] PCP - General Internal Medicine 12/19/22 Mixing Tank Operator Relationship Specialty Start Date End Date Tom Lemus MD PCP - General Internal Medicine 11/01/22 Mixing Tank Operator Relationship Specialty Start Date End Date Tom Lemus MD PCP - General Internal Medicine 11/01/22 Mixing Tank Operator Relationship Specialty Start Date End Date Agustin Ramos MD [address] [place] [address] PCP - General 01/27/04 Tom Lemus [address] [place] [address] Referring Internal Medicine 02/10/23 Mixing Tank Operator Relationship Specialty Start Date End Date Agustin Ramos MD [address] [place] [address] PCP - General 01/27/04 Tom Lemus [address] [place] [address] Referring Internal Medicine 02/10/23 Mixing Tank Operator Relationship Specialty Start Date End Date Tom Lemus DO [address] [place] [address] PCP - General Internal Medicine 12/19/22 Mixing Tank Operator Relationship Specialty Start Date End Date Tom Lemus DO [address] [place] [address] PCP - General Internal Medicine 12/19/22 Mixing Tank Operator Relationship Specialty Start Date End Date Tom Lemus DO [address] [place] [address] PCP - General Internal Medicine 12/19/22 Mixing Tank Operator Relationship Specialty Start Date End Date Bridgette Sargent MD [address] [place] [address] PCP - General Internal Medicine 06/30/22 Mixing Tank Operator Relationship Specialty Start Date End Date Bridgette Sargent MD [address] [place] [address] PCP - General Internal Medicine 06/30/22 Mixing Tank Operator Relationship Specialty Start Date End Date Agustin Ramos MD [address] [place] [phone] PCP - General 01/27/04 Tom Lemus [address] [place] [address] Referring Internal Medicine 02/10/23 Mixing Tank Operator Relationship Specialty Start Date End Date Agustin Ramos MD [address] [place], [place] [phone] PCP - General 01/27/04 Tom Lemus [address] [place] [address] Referring Internal Medicine 02/10/23 Mixing Tank Operator Relationship Specialty Start Date End Date Agustin Ramos MD [address] [place], [place] [phone] PCP - General 01/27/04 Tom Lemus [address] [place] [address] Referring Internal Medicine 02/10/23 Mixing Tank Operator Relationship Specialty Start Date End Date Tom Lemus [address] [place] [address] PCP - General Internal Medicine 01/16/25 Tom Lemus [address] [place] [address] Referring Internal Medicine 02/10/23 Mixing Tank Operator Relationship Specialty Start Date End Date Agustin Ramos MD [address] [place], [place] [phone] PCP - General 01/27/04 01/15/25 Tom Lemus [address] [place] [address] PCP - General Internal Medicine 01/16/25 Tom Lemus [address] [place] [address] Referring Internal Medicine 02/10/23 Mixing Tank Operator Relationship Specialty Start Date End Date Tom Lemus [address] [place] [address] PCP - General Internal Medicine 01/16/25 Tom Lemus [address] [place] [address] Referring Internal Medicine 02/10/23 [employer]ing [employer] Relationship Specialty Start Date End Date Tom Lemus [address] [place] [address] PCP - General Internal Medicine 01/16/25 Tom Lemus [address] [place] [address] Referring Internal Medicine 02/10/23 Mixing Tank Operator Relationship Specialty Start Date End Date Tom Leums MD PCP - General Internal Medicine 11/01/22 Goals (unrecognized section and content) Goals may be documented in a n alternate section Source Comments (unrecognize d section and content) In the event this informatio n is protected by the [facility] Confidentiality of Alcohol and Drug Abuse Patient Records regulations: The Federal rules restrict any use of the information to criminally investigate or prosecute any alcohol or drug abuse patient.[facility] the event this information is protected by the Federal Confidentiality of Alcohol and Drug Abuse Patient Records regulations: The Federal rules restrict any use of the information to criminally investigate or prosecute any alcohol or drug abuse patient.[facility] the event this information is protected by the Federal Confidentiality of Alcohol and Drug Abuse Patient Records regulations: The Federal rules restrict any use of the information to criminally investigate or prosecute any alcohol or drug abuse patient.[facility] the event this information is protected by the Federal Confidentiality of Alcohol and Drug Abuse Patient Records regulations: The Federal rules restrict any use of the information to criminally investigate or prosecute any alcohol or drug abuse patient.[facility] the event this information is protected by the Federal Confidentiality of Alcohol and Drug Abuse Patient Records regulations: The Federal rules restrict any use of the information to criminally investigate or prosecute any alcohol or drug abuse patient.[facility] the event this information is protected by the Federal Confidentiality of Alcohol and Drug Abuse Patient Records regulations: The Federal rules restrict any use of the information to criminally investigate or prosecute any alcohol or drug abuse patient.[facility] the event this information is protected by the Federal Confidentiality of Alcohol and Drug Abuse Patient Records regulations: The Federal rules restrict any use of the information to criminally investigate or prosecute any alcohol or drug abuse patient.[facility] the event this information is protected by the Federal Confidentiality of Alcohol and Drug Abuse Patient Records regulations: The Federal rules restrict any use of the information to criminally investigate or prosecute any alcohol or drug abuse patient.[facility] the event this information is protected by the Federal Confidentiality of Alcohol and Drug Abuse Patient Records regulations: The Federal rules restrict any use of the information to criminally investigate or prosecute any alcohol or drug abuse patient.[facility] the event this information is protected by the Federal Confidentiality of Alcohol and Drug Abuse Patient Records regulations: The Federal rules restrict any use of the information to criminally investigate or prosecute any alcohol or drug abuse patient.[facility] the event this information is protected by the Federal Confidentiality of Alcohol and Drug Abuse Patient Records regulations: The Federal rules restrict any use of the information to criminally investigate or prosecute any alcohol or drug abuse patient.[facility] the event this information is protected by the Federal Confidentiality of Alcohol and Drug Abuse Patient Records regulations: The Federal rules restrict any use of the information to criminally investigate or prosecute any alcohol or drug abuse patient.[facility] Center[facility] the event this information is protected by the Federal Confidentiality of Alcohol and Drug Abuse Patient Records regulations: The Federal rules restrict any use of the information to criminally investigate or prosecute any alcohol or drug abuse patient.[facility] Center[facility] the event this information is protected by the Federal Confidentiality of Alcohol and Drug Abuse Patient Records regulations: The Federal rules restrict any use of the information to criminally investigate or prosecute any alcohol or drug abuse patient.[facility] Ordered Prescriptions (unrec ognized section and content) Prescription Sig Dispensed Refills Start Date End Da te dicyclomine (BENTYL) 10 MG capsule Take 1 capsule by mouth 4 times daily (before meals and nightly) for 15 days 60 capsule 07/27/2024 08/11/2024 promethazine (PHENERGAN) 25 MG tablet Take 1 tablet by mouth every 6 hours as needed for Nausea 15 tablet 07/27/2024 08/03/2024 FOR RECORDS PERTAINING TO PATIENTS WHO ARE [...] BE BASED ON THE PRIMARY CLINICAL RECORDS. [facility]. provides no warranty or guarantee of the accuracy or completeness of information in this document.
[2025-02-04 14:08] LABS: Age Gdln ACOG Testing Note (.); IGP, rfx Aptima HPV ASCU Note (.)
== END 2025-01-29 18:58 | disposition home or self-care (01) ==
LOC: LAB 18:57
PROVIDERS: PCP Internal Medicine; Visit Provider Obstetrics & Gynecology
DX: Z01.419 Encounter for gynecological examination (general) (routine) without abnormal findings (principal)
CPT/HCPCS: 88175